=== PATIENT | female | born 1990 | race Caucasian/White ===

== ENCOUNTER 2018-04-21 15:34 | Emergency (ER) | payer MEDICAID, SELFPAY ==
[2018-04-21 15:36] VITALS: BP 147/92; PULSE 105; RESP 20; TEMP 36.4; O2SAT 97; BMI 46.5
[2018-04-21 15:48] VITALS: BP 146/92; PULSE 104; RESP 18; O2SAT 98
--- NOTE | 2018-04-21 15:53 | EKG12_ITS ---
Test Reason : SYNCOPE Blood Pressure : / mmHG Vent. Rate : 103 BPM Atrial Rate : 103 BPM P-R Int : 134 ms QRS Dur : 096 ms QT Int : 378 ms P-R-T Axes : 042 014 -12 degrees QTc Int : 495 ms Sinus tachycardia Nonspecific T wave abnormality Abnormal ECG Confirmed by EFFIE SEAMAN, PAVAN ([id number]), material expeditor GIOVANY HORAN ([id number]) on 04/24/2018 3:57:36 PM Referred By: JARRED Confirmed By:PAVAN CHOU MD
--- NOTE | 2018-04-21 15:55 | ED.VISSUMM ---
- ER Visit Summary Date of Service: 04/21/18 Chief Complaint: [] Syncope History of Present Illness: The patient is a 26 F with a history of recurrent syncope in the past. She states has been from low blood pressure. She had 3 syncopal episodes today. She does not completely got but she see stars for short period time. She has been feeling weak. She has had preeclampsia 3 times prior. She has been 11 times. She had a baby 3 weeks ago. She had preeclampsia with this gestational diabetes and polyhydramnios. She stated during the her blood pressures are 130s-140s. They did not put her on blood better pressure medications for this she was borderline. She sees an [facility] in [place] Dr. Kamryn jaeger. She feels intermittently weak. She has a history of chronic anemia secondary to Crohn's disease. She was at a Father's Day constitution party today and got weak and fell in the bathroom. She stated that she is just spotting now. Which is decreased significantly from her delivery Physical Examination: [] Vital signs reviewed General: Well-nourished well-developed Head: Normocephalic atraumatic Eyes: Pupils equal round and reactive to light extraocular movements intact ENT: TMs clear no hemotympanum no trauma Neck: Nontender full range of motion Cardiovascular: Regular rate rhythm no murmurs normal S1-S2 Respiratory: No distress clear to auscultation bilaterally chest nontender Abdomen: Soft nontender nondistended normal bowel sounds no masses Back: Nontender no CVA tenderness Extremities: Nontender active range of motion ?4 extremities no trauma Skin: Normal color no trauma Neuro alert oriented cranial nerves II through XII intact normal strength sensation reflexes Test Results: [] Emergency Department Course and Treatment: [] Even IV fluids and Toradol. EKG lab work obtained EKG shows sinus at 103 T-wave inversion inferior lead III. CBC normal except hemoglobin 11.1. Chemistries normal except BUN 5. Uric acid normal. Liver function tests normal except alk phos 120 which is elevated normally after . Urinalysis shows no evidence of abnormality. No protein in the urine. Patient given IV fluids Toradol Phenergan and Nubain and will be discharged home. I do not think she has preeclampsia. Blood pressures have been 130s-140s. Patient stated she has been around this area throughout her . She has a follow-up with her [facility] and will call them as an outpatient. I do not feel the patient has an acute cause of the syncopal episodes. Treatment Plan: [] Disposition: [] Impression: [] Syncope recurrent Headache recurrent This note was generated with [employer] dictation software. It may contain incorrect words, spelling, and punctuation that were not noted in review of the chart prior to signing ED Disposition - Plan for ED Patient: Chief Complaint: Syncope Referrals: Jimmie Jason MD [NON-STAFF] -
[2018-04-21 16:14] LABS: Mucous, Urine 0 SEEN /hpf (<or=2+); Red Blood Cells-Urine 0 SEEN /hpf (0-5)
[2018-04-21 16:24] LABS: Color, Urine Yellow (Yellow); Glucose, Dipstick Normal (Normal); Ketone-Dipstick Negative (Negative); Leukocyte Esterase-Dipstick 100 /ul (Negative); Nitrite-Dipstick Negative (Negative); Occult Blood-Urine 50 /ul (Negative); Protein-Dipstick Negative (Negative); Specific Gravity, Urine 1.015 (1.002-1.030); Urine Bilirubin Dipstick Negative (Negative); Urine Clarity Clear (Clear); Urine Urobilinogen Normal (Normal)
[2018-04-21 16:34] VITALS: PULSE 105; RESP 18
[2018-04-21 16:34] LABS: Bacteria 1+ /hpf (None Seen); Squamous Epithelial Cells - UA 0-5 SEEN /hpf (5-10); White Blood Cells 0-5 SEEN /hpf (0-5)
[2018-04-21] MEDS: Ketorolac 30 MG/ML Syringe IV (16:49)
[2018-04-21] MEDS: proMETHazine 25 MG/ML Syringe 6.25 MG IV (16:49)
[2018-04-21] MEDS: 0.9% Normal Saline 1,000 ML 1000 ML IV (16:49)
[2018-04-21 17:00] VITALS: BP 139/90; PULSE 108; RESP 19; O2SAT 98
[2018-04-21] MEDS: Ondansetron 4 MG/2 ML Vial IV (17:40)
--- NOTE | 2018-04-21 17:44 | ED.RN ---
PT REQUESTING PAIN MEDICATION OR BENADRYL. DR. STERN AWARE.
[2018-04-21 17:55] LABS: Hematocrit 36.1 % (37-47); Hemoglobin 11.1 g/dl (12.0-15.0); Mean Corp Hgb Conc 30.7 g/gl (32-36); Mean Corpuscular Hgb 25.2 pg (27.0-32.0); Mean Corpuscular Volume 81.9 fL (81-99); Mean Platelet Vol. 9.8 fl (6.2-12.0); Platelet Count 379 K/mm3 (150-450); RBC Distribution Width CV 14.4 % (11.6-14.6); RBC Distribution Width SD 43.5 fl (35.1-43.9); Red Blood Count 4.41 M/mm3 (4.2-5.4); White Blood Count 9.4 K/mm3 (4.4-11.0)
[2018-04-21 18:00] VITALS: BP 140/73; PULSE 87; RESP 20; O2SAT 97
[2018-04-21 18:01] LABS: Scan Indicated on CBC? Y/N NO
[2018-04-21 18:08] LABS: ALB/GLOB Ratio 0.8 RATIO (0.9-2.4); AST(SGOT) 31 U/L (15-37); Alanine Aminotransfer ALT/SGPT 30 U/L (13-56); Albumin, Serum 3.4 g/dL (3.2-5.0); Alkaline Phosphatase 120 U/L (45-117); Anion Gap 8 (5-15); BUN 5 mg/dL (7-18); BUN/Creat Ratio 5.5 RATIO (10-20); Calcium,Total 8.9 mg/dL (8.5-10.1); Chloride 107 mmol/L (98-107); EST Glomerular Filtration Rate 79 mL/min (>60); Est Glom Filt Rate - Afr Amer 95 mL/min (>60); Estimated Creatinine Clearance 80.36 ml/min; Globulin 4.5 g/dL (2.2-4.2); Glucose 87 mg/dL (74-106); Potassium 3.9 mmol/L (3.5-5.1); Protein, Total 7.9 g/dL (6.4-8.2); Sodium Level 139 mmol/L (136-145); Uric Acid 5.4 mg/dL (2.6-6.0)
--- NOTE | 2018-04-21 18:22 | ED.DEP ---
ED Disposition - Plan for ED Patient: Disposition: Home or Assisted Living Chief Complaint: Syncope Instructions: ED Syncope Vasovagal Referrals: Jimmie Jason MD [NON-STAFF] -
[2018-04-21] MEDS: Nalbuphine 10 MG/ML Ampul 5 MG IV (18:33)
--- NOTE | 2018-04-21 18:37 | ED.RN ---
REVIEWED D/C INSTRUCTIONS, FOLLOW UP CARE, AND S/S THAT WOULD WARRANT A RETURN TO THE ED WITH PT. PT VERBALIZED AN UNDERSTANDING AND DENIES FURTHER QUESTIONS FOR THIS RN. PT SKIN P/W/D, RESP EVEN AND UNLABORED, PT A&O X 3, NO DISTRESS NOTED.
[2018-04-21 18:38] VITALS: BP 140/73; PULSE 95; RESP 20; O2SAT 97
== END 2018-04-21 18:39 | disposition home or self-care (01) ==
PROVIDERS: Emergency Provider Emergency Medicine
DX: O90.89 Other complications of the puerperium, not elsewhere classified (principal); R55 Syncope and collapse; R51 Headache; O99.63 Diseases of the digestive system complicating the puerperium; K50.90 Crohn's disease, unspecified, without complications; O99.215 Obesity complicating the puerperium; Z79.899 Other long term (current) drug therapy; Z86.2 Personal history of diseases of the blood and blood-forming organs and certain disorders involving the immune mechanism; Z86.19 Personal history of other infectious and parasitic diseases
CPT/HCPCS: 36415; 80053; 81001; 84550; 85027; 93005; 96361; 96374; 96375; 99285; J7030; A4216; J2405

== ENCOUNTER 2018-05-18 12:50 | Emergency (ER) | payer MEDICAID, SELFPAY ==
[2018-05-18 12:51] VITALS: BP 155/104; PULSE 108; RESP 16; TEMP 36.2; O2SAT 100; BMI 45.8
[2018-05-18] MEDS: 0.9% Normal Saline 1,000 ML 1000 ML IV (14:08)
[2018-05-18] MEDS: Morphine 4 MG/ML Syringe IV (14:08)
[2018-05-18] MEDS: proMETHazine 25 MG/ML Syringe 6.25 MG IV (14:09)
[2018-05-18 14:14] LABS: Absolute Lymphocyte Count 1.56 X10^3/ul (0.83-4.51); Absolute Neutrophil Count 7.5 X10^3/uL (2.0-7.7); Basophil# 0.02 X10^3/uL; Basophil% 0.2 % (0-1); Eosinophil# 0.03 X10^3/uL; Eosinophils% 0.3 % (0-5); Hematocrit 38.5 % (37-47); Hemoglobin 12.2 g/dl (12.0-15.0); Lymphocyte # 1.56 X10^3/ul (4.0); Lymphocyte % 16.4 % (19-41); Mean Corp Hgb Conc 31.7 g/gl (32-36); Mean Corpuscular Hgb 25.4 pg (27.0-32.0); Mean Platelet Vol. 9.8 fl (6.2-12.0); Monocyte# 0.39 X10^3/uL; Monocyte% 4.1 % (0-10); Neutrophil # 7.47 X10^3/uL (2.7-7.7); Neutrophil % 78.7 % (47-70); Platelet Count 372 K/mm3 (150-450); RBC Distribution Width CV 15.4 % (11.6-14.6); RBC Distribution Width SD 44.8 fl (35.1-43.9); Red Blood Count 4.81 M/mm3 (4.2-5.4); White Blood Count 9.5 K/mm3 (4.4-11.0)
[2018-05-18 14:15] LABS: POSITIVE COUNT NO; POSITIVE DIFFERENTIAL NO; POSITIVE MORPHOLOGY NO
[2018-05-18] MEDS: Ketorolac 30 MG/ML Syringe IV (14:48)
[2018-05-18] MEDS: LORazepam 2 MG/ML Syringe 1 MG IV (14:48)
[2018-05-18 15:00] VITALS: RESP 16
[2018-05-18 15:39] LABS: Anion Gap 10 (5-15); BUN 5 mg/dL (7-18); BUN/Creat Ratio 6.6 RATIO (10-20); Calcium,Total 8.7 mg/dL (8.5-10.1); Chloride 108 mmol/L (98-107); Creatinine, Serum 0.76 mg/dL (0.55-1.02); EST Glomerular Filtration Rate 96 mL/min (>60); Est Glom Filt Rate - Afr Amer 116 mL/min (>60); Estimated Creatinine Clearance 94.32 ml/min; Glucose 100 mg/dL (74-106); Potassium 3.7 mmol/L (3.5-5.1); Sodium Level 143 mmol/L (136-145)
[2018-05-18 15:47] LABS: Pregnancy, Serum, hCG Quali. NEGATIVE Negative (0-9 Nonpreg)
--- NOTE | 2018-05-18 15:47 | ED.VISSUMM ---
- ER Visit Summary Date of Service: 05/18/18 Chief Complaint: Diarrhea History of Present Illness: The patient is a 27 F with diarrhea for 2 days. The diarrhea has been watery and nonbloody. She has also had nausea and vomiting. She has a history of Crohn's disease and also multiple episodes of C. difficile diarrhea. She has no recent antibiotics. She denies fevers. Denies any significant abdominal pain, but does have some cramping. Physical Examination: Blood pressure 155/104. Heart rate 108. Otherwise vitals unremarkable. Afebrile. Skin appears normal without jaundice or pallor. Heart is tachycardic but regular. Lungs are clear. Abdomen soft, nontender, nondistended. Alert and oriented. No acute distress. Test Results: See below Emergency Department Course and Treatment: Patient has Crohn's, C. difficile, and presents with recurrent diarrhea. I ordered IV fluids, pain medicine, and nausea medicine. I also ordered labs, urinalysis, and C. difficile testing. Nursing was able to place an IV, but they could not draw a blood sample. They were unsuccessful after multiple attempts. The patient declined any further needle sticks. I continue with fluid hydration and medications. She also received Toradol. Stool sample was sent to the lab. They had trouble running the sample and requested a second sample. The patient was unable to provide another sample. She would like to be treated for C. difficile as an outpatient and declined any further testing. She received a dose of Flagyl here. She has follow-up with her GI doctor and ID doctor on May 27. I advised her that she has not been completely evaluated for abdominal pain, diarrhea, Crohn's complications, or C. difficile. If she has any new or worsening symptoms, she should return for an evaluation. Treatment Plan: As above Disposition: Discharge Impression: 1. Diarrheal illness This note was generated with codebender dictation software. It may contain incorrect words, spelling, and punctuation that were not noted in review of the chart prior to signing ED Disposition - Plan for ED Patient: Chief Complaint: General Illness Referrals: Care Physician,No Primary [Primary Care Provider] -
--- NOTE | 2018-05-18 15:52 | ED.DCSUM_ITS ---
- ER Visit Summary Date of Service: 05/18/18 Chief Complaint: Diarrhea History of Present Illness: The patient is a 27 F with diarrhea for 2 days. The diarrhea has been watery and nonbloody. She has also had nausea and vomiting. She has a history of Crohn's disease and also multiple episodes of C. difficile diarrhea. She has no recent antibiotics. She denies fevers. Denies any significant abdominal pain, but does have some cramping. Physical Examination: Blood pressure 155/104. Heart rate 108. Otherwise vitals unremarkable. Afebrile. Skin appears normal without jaundice or pallor. Heart is tachycardic but regular. Lungs are clear. Abdomen soft, nontender, nondistended. Alert and oriented. No acute distress. Test Results: See below Emergency Department Course and Treatment: Patient has Crohn's, C. difficile, and presents with recurrent diarrhea. I ordered IV fluids, pain medicine, and nausea medicine. I also ordered labs, urinalysis, and C. difficile testing. Nursing was able to place an IV, but they could not draw a blood sample. They were unsuccessful after multiple attempts. The patient declined any further needle sticks. I continue with fluid hydration and medications. She also received Toradol. Stool sample was sent to the lab. They had trouble running the sample and requested a second sample. The patient was unable to provide another sample. She would like to be treated for C. difficile as an outpatient and declined any further testing. She received a dose of Flagyl here. She has follow-up with her GI doctor and ID doctor on May 27. I advised her that she has not been completely evaluated for abdominal pain, diarrhea, Crohn' s complications, or C. difficile. If she has any new or worsening symptoms, she should return for an evaluation. Treatment Plan: As above Disposition: Discharge Impression: 1. Diarrheal illness This note was generated with [employer] dictation software. It may contain incorrect words, spelling, and punctuation that were not noted in review of the chart prior to signing ED Disposition - Plan for ED Patient: Chief Complaint: General Illness Referrals: Care Physician,No Primary [Primary Care Provider] -
--- NOTE | 2018-05-18 15:52 | ED.DEP ---
ED Disposition - Plan for ED Patient: Chief Complaint: General Illness Instructions: Clostridium difficile Infection Prescriptions: Metronidazole [Flagyl] 500 mg PO Q8H #30 tab Additional Instructions: follow up with your GI and ID doctors as scheduled
[2018-05-18] MEDS: predniSONE 20 MG Tablet 40 MG PO (15:57)
[2018-05-18] MEDS: HYDROcodone Bitartrate/Apap 5/325 Tablet PO (15:57)
[2018-05-18] MEDS: metroNIDAZOLE 500 MG Tablet PO (16:09)
[2018-05-18 16:10] VITALS: BP 134/78; PULSE 82; RESP 18; O2SAT 97
--- NOTE | 2018-05-18 17:38 | ED.RN ---
Called pt with C-diff results which were negative. She was advised to not take the Flagyl as ordered. This was verified with Dr coronado.
== END 2018-05-18 16:18 | disposition home or self-care (01) ==
PROVIDERS: Emergency Provider Emergency Medicine
DX: R19.7 Diarrhea, unspecified (principal); K50.90 Crohn's disease, unspecified, without complications; R11.2 Nausea with vomiting, unspecified; R00.0 Tachycardia, unspecified; Z79.899 Other long term (current) drug therapy; Z86.19 Personal history of other infectious and parasitic diseases
CPT/HCPCS: 80048; 81001; 84703; 85025; 87493; 96361; 96374; 96375; 99285; J7030; A4216

== ENCOUNTER 2022-08-18 16:18 | Emergency (ER) | payer SELFPAY ==
[2022-08-18 16:20] VITALS: BP 202/184; PULSE 128; RESP 22; TEMP 37.2; O2SAT 96; BMI 46.3
[2022-08-18 16:21] VITALS: BP 134/78; PULSE 88; RESP 16; TEMP 37.1; O2SAT 99
--- NOTE | 2022-08-18 16:41 | CT_ITS ---
STUDY: CT Abdomen And Pelvis W/ Contrast Injection 08/18/2022 8:44 PM REASON FOR EXAM: Female, 31 years old. ABDOMINAL PAIN Technologist Notes Left sided pain, history of cholecystectomy, chrons disease. crohns TECHNIQUE: Transaxial images were obtained with oral contrast, and with Oral and amp; IV Gastrografin and amp; 100mL Isovue-300 intravenous contrast. Individualized dose optimization techniques were used for this CT. COMPARISON: None. FINDINGS: The visualized lung bases are unremarkable. There is a small pericardial effusion. Unremarkable liver. There is non-visualization of the gallbladder, which may be secondary to either contraction or a prior cholecystectomy. Unremarkable spleen. Unremarkable pancreas. Unremarkable bilateral adrenal glands. No acute findings of the right kidney. No acute findings of the left kidney. Unremarkable visualized stomach. Unremarkable small intestine. Unremarkable colon. The appendix is visualized and appears unremarkable. There are no acute findings of the abdominal aorta. Unremarkable inferior vena cava. Subcentimeter mesenteric lymph nodes. Unremarkable urinary bladder. Unremarkable abdominal wall. Unremarkable osseous structures. CT/Abdomen/Pelvis WITH Contrast IMPRESSION: (NOT LISTED IN ORDER OF SIGNIFICANCE) There is a small pericardial effusion. Other findings as above. Electronically Signed: Grover Ramos MD at 20:46 EDT ,
--- NOTE | 2022-08-18 16:43 | ED.VIS.GI ---
HPI HPI - GI History of Present Illness Chief Complaint: GI Bleed Informant: patient Narrative Narrative: History of Crohn's disease diagnosed 6 years old. Previously on Cimzia. States initially diagnosed in [place]. She came to [place] was followed at [facility]. She states prior to moving back in [place] she was reportedly cleared from Crohn's and told she had IBS. She had a previous cholecystectomy and partial small bowel obstruction of the ileum. Yesterday small blood with wiping gauze hemorrhoids this morning noted more blood however no bowel movement since. This morning also vomited states chunks that look like burnt food. Nonbloody. She did not cough up any blood. History of multiple allergies. States Zofran does not work. Phenergan or Reglan with Benadryl works. Tolerated morphine. She currently moved back from [place] a week ago. Blood pressure elevated states it would be elevated with pain. No headaches. No chest pains. No urinary symptoms. Reports does have pain in her lower back. No radicular symptoms. Prior similar symptoms: Yes PFSH PFSH Medical History Crohn's disease Home Medications dronabinol 5 mg capsule (Marinol) 5 mg PO BID 04/21/18 [History Last Taken Unknown] haloperidol 5 mg tablet 5 mg PO PRN PRN Anxiety 04/21/18 [History Last Taken Unknown] sertraline 100 mg tablet 150 mg PO DAILY 04/21/18 [History Last Taken Unknown] metronidazole 500 mg tablet 500 mg PO Q8H #30 tabs 05/18/18 [Rx Last Taken Unknown] dicyclomine 20 mg tablet 20 mg PO TID abdominal pain #30 tabs 08/18/22 [Rx Last Taken Unknown] promethazine 25 mg rectal suppository (Promethegan) 25 mg RECTAL Q6H PRN PRN Nausea ##10 08/18/22 [Rx Last Taken Unknown] promethazine 25 mg tablet 25 mg PO Q6H PRN nausea and vomiting #10 tabs 08/18/22 [Rx Last Taken Unknown] Allergy/AdvReac Type Severity Reaction Status Date / Time benzocaine [From Cetacaine] Allergy Anaphylaxis Verified 08/18/22 16:20 butamben [From Cetacaine] Allergy Anaphylaxis Verified 08/18/22 16:20 methylprednisolone sodium Allergy Anaphylaxis Verified 08/18/22 16:20 succinate [From Solu-Medrol] tetracaine [From Cetacaine] Allergy Anaphylaxis Verified 08/18/22 16:20 midazolam HCl [From Versed] AdvReac Other Verified 08/18/22 16:20 Social History Smoking Status: Former smoker ROS ROS ED Constitutional Constitutional ED: Denies chills, fever(s) or sweats Eyes Eyes: Denies change in vision ENT ENT ED: Denies dysphagia or sore throat Cardiovascular Cardiovascular: Denies chest pain, leg edema, palpitations or racing heartbeat Respiratory/Chest Respiratory/Chest: Denies cough, dyspnea or dyspnea on exertion Gastrointestinal Gastrointestinal: Reports abdominal pain, nausea and vomiting; Denies diarrhea Genitourinary Genitourinary ED: Denies dysuria, hematuria or urinary frequency Musculoskeletal Musculoskeletal: Reports back pain; Denies extremity pain or neck pain Integumentary Denies rash or wounds Neurologic Neurologic: Denies headache(s), paresthesias or weakness EXAM Physical Exam Const Vital Signs: 08/18/22 16:20 08/18/22 16:21 08/18/22 18:19 Temperature 99 F 98.7 F Temperature Source Temporal Temporal Pulse Rate 128 H 88 78 Respiratory Rate 22 H 16 16 Blood Pressure 202/184 H 134/78 H 134/78 H Blood Pressure Mean 190 96 96 Pulse Ox 96 99 98 Oxygen Delivery Method Room Air Room Air Room Air 08/18/22 21:03 08/18/22 21:28 Temperature 101 F H Temperature Source Oral Pulse Rate 78 Respiratory Rate 16 Blood Pressure 128/76 H Blood Pressure Mean 93 Pulse Ox 99 Oxygen Delivery Method Room Air Positive well nourished and well developed General Appearance ED: well developed and NAD HEENT Reports moist mucous membranes normocephalic and atraumatic Eyes PERRL, EOMs intact bilaterally and conjunctivae normal General Eye ED: Yes normal appearance of both eyes Neck no lymphadenopathy and supple General: Negative for tenderness Chest Wall Chest: Negative for tenderness Resp normal respiratory effort and normal air movement Effort and Inspection: symmetric chest movement; Negative for respiratory distress Cardio regular rhythm and no murmurs Rate: tachycardic Peripheral Pulses: pulses 2+ throughout GI normal to inspection, nondistended, normoactive bowel sounds GI Narrative: Mild generalized tenderness no guarding or rebound. Palpation: Negative for guarding or rebound tenderness present Back/Spine no CVA tenderness and no thoracic nor lumbar tenderness Extremity normal to inspection General Extremety ED: Negative for edema or tenderness General Extremity: Negative for edema Neuro oriented x3 and no sensory deficits noted Sensorium / Orientation: awake and alert Skin no rashes or lesions noted and no wounds MDM MDM MDM Narrative Medical decision making narrative: IsPatient elevated blood pressure tachycardic on arrival. She had a nonsurgical abdomen reported increasing pain with Crohn's history. Work-up for which she agreed. CT scan with oral and IV contrast was ordered abdominal labs all normal hemoglobin 12.6. Urine negative. Treated for pain and nausea symptoms while in the ED. Her blood pressure heart rate improved with treatment. CT scan results showed no acute process of her abdomen there is a small pericardial effusion. She has no chest complaints. Prior to discharge temp went up to 101 however urine negative. No cough symptoms. Patient discharged with GI follow-up as an outpatient prescription for Bentyl and Phenergan was written that she is tolerated this in the past. Return precautions. All questions were answered. Lab Data Labs: Laboratory Results - last 24 hr 08/18/22 08/18/22 08/18/22 16:45 17:40 17:40 WBC 7.3 RBC 5.27 Hgb 12.6 Hct 42.3 MCV 80.3 L MCH 23.9 L MCHC 29.8 L RDW Std Deviation 46.2 H RDW Coeff of Silke 15.9 H Plt Count 225 MPV 10.9 Immature Gran % (Auto) 0.600 Neut % (Auto) 81.9 H Lymph % (Auto) 10.0 L [place] % (Auto) 7.2 Eos % (Auto) 0.0 Baso % (Auto) 0.3 Absolute Neuts (auto) 6.0 Absolute Lymphs (auto) 0.73 L Nucleated RBC % 0 Sodium 137 Potassium 4.3 Chloride 106 Carbon Dioxide 24.0 Anion Gap 7 BUN 8 Creatinine 0.97 Estim Creat Clear Calc 71.23 Est GFR (MDRD) Af Amer 85 Est GFR (MDRD) Non-Af 70 BUN/Creatinine Ratio 8.2 L Glucose 108 H Calcium 9.2 Total Bilirubin 0.90 AST 12 L ALT 15 Alkaline Phosphatase 81 Total Protein 8.2 Albumin 3.4 Globulin 4.8 H Albumin/Globulin Ratio 0.7 L Lipase 92 Urine Color Yellow Urine Clarity Clear Urine pH 7.0 Ur Specific [place] 1.010 Urine Protein Negative Urine Glucose (UA) Normal Urine Ketones Negative Urine Occult Blood Negative Urine Nitrite Negative Urine Bilirubin Negative Urine Urobilinogen Normal Ur Leukocyte Esterase Negative Urine RBC 0-5 SEEN Urine WBC 0-5 SEEN Ur Squamous Epith Cells 0-5 SEEN Urine Bacteria RARE Urine Mucus 0 SEEN Urine Test Negative Radiography Diagnostic Testing: Clinical Impression(s) from Imaging Studies Abdomen/Pelvis CT 08/18/22 16:41 IMPRESSION: (NOT LISTED IN ORDER OF SIGNIFICANCE) There is a small pericardial effusion. Other findings as above. Electronically Signed: Grover Ramos MD at 20:46 EDT Reading Location ID and State: [facility] / [place] , Service support , Discharge Plan Triage Chief Complaint: GI Bleed ED Provider: Juancho Fair Dx/Rx/DC Orders Clinical Impression: Abdominal pain, Hx of Crohn's disease, History of IBS, Rectal bleeding, Pericardial effusion Instructions: Abdominal Pain, ED Irritable Bowel Syndrome, ED Lower GI Bleeding (Stable) Prescriptions: New promethazine [Promethegan] 25 mg suppository 25 mg RECTAL Q6H PRN PRN (Reason: Nausea) Qty: 10 0RF promethazine 25 mg tablet 25 mg PO Q6H PRN (Reason: nausea and vomiting) Qty: 10 0RF dicyclomine 20 mg tablet 20 mg PO TID Qty: 30 0RF No Action haloperidol 5 MG tablet 5 mg PO PRN PRN (Reason: Anxiety) dronabinol [Marinol] 5 MG capsule 5 mg PO BID sertraline 100 MG tablet 150 mg PO DAILY metronidazole 500 MG tablet 500 mg PO Q8H Qty: 30 0RF Primary Care Provider: Care Physician,No Primary Referrals: Juan Alberto Ho DO [Med Staff - Active Staff] - 1-2 Weeks Care Physician,No Primary [Primary Care Provider] - Activity Restrictions/Additional Instructions: CT scan negative. Labs are all stable. Hemoglobin 12.6. Monitor symptoms. Follow-up with GI as an outpatient. Return if any worsening symptoms. Disposition Disposition: Home, Self Care Discharge Date/Time: 08/18/22 21:11
[2022-08-18 16:52] LABS: Mucous, Urine 0 SEEN /hpf (<or=2+)
[2022-08-18 16:57] LABS: Color, Urine Yellow (Yellow); Glucose, Dipstick Normal (Normal); Ketone-Dipstick Negative (Negative); Leukocyte Esterase-Dipstick Negative /ul (Negative); Nitrite-Dipstick Negative (Negative); Occult Blood-Urine Negative /ul (Negative); Protein-Dipstick Negative (Negative); Urine Bilirubin Dipstick Negative (Negative); Urine Clarity Clear (Clear); Urine Urobilinogen Normal (Normal)
[2022-08-18 17:02] LABS: Internal QC Validated? YES +Cl - CLEAR BKGD; Pregnancy, Urine Negative Negative
[2022-08-18] MEDS: DiphenhydrAMINE 50 MG/ML Syringe 25 MG IV (17:03)
[2022-08-18] MEDS: Metoclopramide 10 MG/2 ML Vial 5 MG IV (17:04)
[2022-08-18] MEDS: Morphine 4 MG/ML Syringe IV ×2 (17:05→18:35)
[2022-08-18 17:11] LABS: Red Blood Cells-Urine 0-5 SEEN /hpf (0-5); White Blood Cells 0-5 SEEN /hpf (0-5)
[2022-08-18 17:12] LABS: Bacteria RARE /hpf (None Seen); Squamous Epithelial Cells - UA 0-5 SEEN /hpf (5-10)
[2022-08-18] MEDS: 0.9% Normal Saline 1,000 ML 1000 ML IV (17:15)
[2022-08-18 17:52] LABS: Absolute Lymphocyte Count 0.73 X10^3/uL (0.83-4.51); Basophil# 0.02 X10^3/uL; Basophil% 0.3 % (0-1); Hematocrit 42.3 % (37-47); Hemoglobin 12.6 g/dL (12.0-15.0); Lymphocyte # 0.73 X10^3/ul (0.83-4.51); Mean Corp Hgb Conc 29.8 g/dL (32-36); Mean Corpuscular Hgb 23.9 pg (27.0-32.0); Mean Corpuscular Volume 80.3 fL (81-99); Mean Platelet Vol. 10.9 fl (6.2-12.0); Monocyte# 0.52 X10^3/uL; Monocyte% 7.2 % (0-10); NRBC Flagged by Analyzer 0 % (0-5); Neutrophil # 5.96 X10^3/uL (2.7-7.7); Neutrophil % 81.9 % (47-70); Platelet Count 225 K/mm3 (150-450); RBC Distribution Width CV 15.9 % (11.6-14.6); RBC Distribution Width SD 46.2 fl (35.1-43.9); Red Blood Count 5.27 M/mm3 (4.2-5.4); White Blood Count 7.3 K/mm3 (4.4-11.0)
[2022-08-18 18:15] LABS: ALB/GLOB Ratio 0.7 RATIO (0.9-2.4); AST(SGOT) 12 U/L (15-37); Alanine Aminotransfer ALT/SGPT 15 U/L (13-56); Albumin, Serum 3.4 g/dL (3.2-5.0); Alkaline Phosphatase 81 U/L (45-117); Anion Gap 7 (5-15); BUN 8 mg/dL (7-18); BUN/Creat Ratio 8.2 RATIO (10-20); Calcium,Total 9.2 mg/dL (8.5-10.1); Chloride 106 mmol/L (98-107); Creatinine, Serum 0.97 mg/dL (0.55-1.02); EST Glomerular Filtration Rate 70 mL/min (>60); Est Glom Filt Rate - Afr Amer 85 mL/min (>60); Estimated Creatinine Clearance 71.23 ml/min; Globulin 4.8 g/dL (2.2-4.2); Glucose 108 mg/dL (74-106); Lipase 92 U/L (73-393); Potassium 4.3 mmol/L (3.5-5.1); Protein, Total 8.2 g/dL (6.4-8.2); Sodium Level 137 mmol/L (136-145)
[2022-08-18 18:19] VITALS: BP 134/78; PULSE 78; RESP 16; O2SAT 98
[2022-08-18] MEDS: Ondansetron 4 MG/2 ML Vial IV (18:34)
[2022-08-18 21:03] VITALS: BP 128/76; PULSE 78; RESP 16; O2SAT 99
[2022-08-18 21:28] VITALS: TEMP 38.3
== END 2022-08-18 21:11 | disposition home or self-care (01) ==
PROVIDERS: Emergency Provider Emergency Medicine; Visit Provider Emergency Medicine
DX: K58.9 Irritable bowel syndrome, unspecified (principal); K92.2 Gastrointestinal hemorrhage, unspecified; R03.0 Elevated blood-pressure reading, without diagnosis of hypertension; R10.9 Unspecified abdominal pain; I31.39 Other pericardial effusion (noninflammatory); Z87.891 Personal history of nicotine dependence
CPT/HCPCS: 74177; 80053; 81001; 81025; 83690; 85025; 96361; 96374; 96375; 96376; 99282; J7030; Q9967; A4216; J2405

== ENCOUNTER 2022-10-26 10:00 | Emergency (ER) | payer OTHER, SELFPAY ==
[2022-10-26 10:01] VITALS: BP 151/84; PULSE 85; RESP 16; TEMP 36; O2SAT 100; BMI 48.0
--- NOTE | 2022-10-26 11:21 | EDS_ITS ---
HPI History of Present Illness Chief Complaint: General Illness Informant: patient Onset/Context/Timing Onset: Yesterday Narrative Narrative: Patient presents with nausea, vomiting, diarrhea that started yesterday. She states she has Crohn's, she normally has maybe 2 stools a day, they are loose but not liquid diarrhea like this, she has been going 8-10 times per day or so. Vomiting, nonbilious nonbloody. Subjective fevers but she has not checked her temperature. She is also coughing bringing up small amounts of phlegm no blood. No dyspnea. No chest pain. She has some mild lower abdominal discomfort but states that the quality of the pain is solid, like I am constipated, but I am not. She agrees when I suggest it does not sound like she is having a Crohn's flareup. She can think of no suspicious food ingestions. No known sick contacts but she works at a [employer] and there are a lot of people around her and at least 1 person is out with some type of illness. She is unvaccinated against COVID and influenza. [facility] Medical History Crohn's disease Home Medications dronabinol 5 mg capsule (Marinol) 5 mg PO BID 04/21/18 [History Last Taken Unknown] haloperidol 5 mg tablet 5 mg PO PRN PRN Anxiety 04/21/18 [History Last Taken Unknown] sertraline 100 mg tablet 150 mg PO DAILY 04/21/18 [History Last Taken Unknown] metronidazole 500 mg tablet 500 mg PO Q8H #30 tabs 05/18/18 [Rx Last Taken Unknown] dicyclomine 20 mg tablet 20 mg PO TID abdominal pain #30 tabs 08/18/22 [Rx Last Taken Unknown] promethazine 25 mg rectal suppository (Promethegan) 25 mg RECTAL Q6H PRN PRN Nausea ##10 08/18/22 [Rx Last Taken Unknown] promethazine 25 mg tablet 25 mg PO Q6H PRN nausea and vomiting #10 tabs 08/18/22 [Rx Last Taken Unknown] promethazine 25 mg tablet 25 mg PO Q6H PRN PRN Nausea #20 TABLETS 10/26/22 [Rx Last Taken Unknown] Allergy/AdvReac Type Severity Reaction Status Date / Time benzocaine [From Cetacaine] Allergy Anaphylaxis Verified 10/26/22 10:00 butamben [From Cetacaine] Allergy Anaphylaxis Verified 10/26/22 10:00 methylprednisolone sodium Allergy Anaphylaxis Verified 10/26/22 10:00 succinate [From Solu-Medrol] tetracaine [From Cetacaine] Allergy Anaphylaxis Verified 10/26/22 10:00 midazolam HCl [From Versed] AdvReac Other Verified 10/26/22 10:00 Social History Smoking Status: Current every day smoker tobacco type: cigarettes ROS ROS ED Constitutional Constitutional ED: Reports fever(s) and subjective Eyes Eyes: Denies change in vision or diplopia ENT ENT ED: Denies rhinorrhea or sore throat Cardiovascular Cardiovascular: Denies chest pain or palpitations Respiratory/Chest Respiratory/Chest: Reports cough and sputum; Denies dyspnea Gastrointestinal Gastrointestinal: Reports abdominal pain, diarrhea, nausea and vomiting; Denies hematemesis, hematochezia, hemorrhoids or melena Genitourinary Genitourinary ED: Denies dysuria or hematuria Musculoskeletal Musculoskeletal: Denies back pain or neck pain Integumentary Denies abscess or rash Neurologic Neurologic: Denies headache(s), paresthesias or weakness Psychiatric Psychiatric: Denies anxiety or suicidal thoughts EXAM Physical Exam Const Vital Signs: 10/26/22 10:01 10/26/22 10:51 10/26/22 12:04 Temperature 96.8 F L Temperature Source Temporal Pulse Rate 85 Respiratory Rate 16 16 Respiratory Effort Normal Non-Labored Blood Pressure 151/84 H Blood Pressure Mean 106 Pulse Ox 100 Oxygen Delivery Method Room Air 10/26/22 12:33 Temperature Temperature Source Pulse Rate Respiratory Rate 16 Respiratory Effort Blood Pressure 114/85 H Blood Pressure Mean 94 Pulse Ox Oxygen Delivery Method Positive well nourished, well developed and obese Constitutional Narrative: Very well-appearing, ambulatory without difficulty, conversive in full sentences General Appearance ED: well developed and NAD Nutritional Appearance: obese HEENT Reports moist mucous membranes normocephalic and atraumatic Eyes PERRL and EOMs intact bilaterally Neck full ROM, no lymphadenopathy and supple Resp normal respiratory effort and clear to auscultation bilaterally Cardio regular rate, regular rhythm and no murmurs Rate: Negative for tachycardic GI non-tender and non-distended GI Narrative: Exam limited by morbid obesity, but very benign abdomen without any tenderness. Auscultation: normoactive bowel sounds Palpation: soft Back/Spine no CVA tenderness General Back: other FROM Extremity normal to inspection General Extremety ED: Negative for edema, pulses abnormal or tenderness General Extremity: Negative for edema or pulses abnormal Neuro oriented x3, CN's II-XII intact bilaterally and no sensory deficits noted Sensorium / Orientation: awake and alert Motor Exam: strength 5/5 throughout Skin no rashes or lesions noted and no wounds MDM MDM MDM Narrative Medical decision making narrative: Patient was tested for COVID and influenza and both are negative. Basic labs are normal she does not have a leukocytosis or leftward shift/bandemia, and her abdomen is very benign and the discomfort she is complaining of states feels like constipation, so I ordered a dicyclomine and nursing states the patient's cough added and refused it. She was given an IV with fluids and Zofran but she said it did not help her nausea even though she was not vomiting anymore. She was then given Reglan and able to keep some fluids down. She is asking for something different for pain but I do not think she needs any narcotics and she does not have any tenderness in her abdomen or symptoms of a Crohn's flare. For these reasons I do not think any advanced imaging of her abdomen is indicated at this time. I suspect she has a viral illness causing her vomiting and diarrhea. If it turns bloody I would recommend returning for testing and reevaluation, but for now I would treat her with supportive care, prescriptions offered. Turns out the patient refused the Reglan because she gets akathisia with it. This hospital has outlawed IV promethazine, patient states she is immune to Zofran and Bentyl and she understands why she does not need any narcotic pain medications here, and is requesting a dose of IM promethazine, she agrees that her nausea is somewhat better she has not vomited while in the emergency department, she really wanted make sure potassium is okay which it is, as are the rest of her electrolytes, supportive care advised along with a prescription for promethazine she is comfortable with that plan. Lab Data Attestation: I reviewed the patient's lab results. Labs: Laboratory Results - last 24 hr 10/26/22 10/26/22 10/26/22 12:19 12:19 12:19 WBC 7.8 RBC 4.56 Hgb 11.8 L Hct 37.4 MCV 82.0 MCH 25.9 L MCHC 31.6 L RDW Std Deviation 45.6 H RDW Coeff of Silke 15.3 H Plt Count 268 MPV 9.7 Immature Gran % (Auto) 0.300 Neut % (Auto) 60.8 Lymph % (Auto) 33.4 [place] % (Auto) 4.9 Eos % (Auto) 0.1 Baso % (Auto) 0.5 Absolute Neuts (auto) 4.8 Absolute Lymphs (auto) 2.61 Nucleated RBC % 0 Sodium 137 Potassium 3.8 Chloride 107 Carbon Dioxide 26.0 Anion Gap 4 L BUN 6 L Creatinine 0.77 Estim Creat Clear Calc 89.74 Est GFR (MDRD) Af Amer 111 Est GFR (MDRD) Non-Af 92 BUN/Creatinine Ratio 7.8 L Glucose 88 Calcium 9.0 Total Bilirubin 1.00 AST 16 ALT 19 Alkaline Phosphatase 83 Total Protein 7.8 Albumin 3.6 Globulin 4.2 Albumin/Globulin Ratio 0.9 Serum , Qual NEGATIVE Discharge Plan Triage Chief Complaint: General Illness ED Provider: Nilesh Rojo Dx/Rx/DC Orders Clinical Impression: Acute viral syndrome, Nausea vomiting and diarrhea, Cough Instructions: ED Diet Vomiting Diarrhea, ED Vomiting and Diarrhea ... Prescriptions: New promethazine [promethazine] 25 mg tablet 25 mg PO Q6H PRN PRN (Reason: Nausea) Qty: 20 0RF No Action haloperidol 5 MG tablet 5 mg PO PRN PRN (Reason: Anxiety) dronabinol [Marinol] 5 MG capsule 5 mg PO BID sertraline 100 MG tablet 150 mg PO DAILY metronidazole 500 MG tablet 500 mg PO Q8H Qty: 30 0RF promethazine [Promethegan] 25 mg suppository 25 mg RECTAL Q6H PRN PRN (Reason: Nausea) Qty: 10 0RF promethazine 25 mg tablet 25 mg PO Q6H PRN (Reason: nausea and vomiting) Qty: 10 0RF dicyclomine 20 mg tablet 20 mg PO TID Qty: 30 0RF Stand Alone Forms: ED Work / School Excuse Primary Care Provider: Care Physician,No Primary Referrals: Doctor,Your [Non-Staff] - 3-5 Days if not improving Disposition Disposition: Home, Self Care
[2022-10-26] MEDS: Ondansetron 4 MG/2 ML Vial IV (11:45)
[2022-10-26] MEDS: 0.9% Normal Saline 1,000 ML 999 ML IV (11:45)
[2022-10-26 12:04] VITALS: RESP 16
--- NOTE | 2022-10-26 12:06 | ED.RN ---
LAB CALLED BY THIS RN TO OBTAIN BLOODWORK. MULTIPLE UNSUCCESSFUL TEMPTS PER RN AND MEDIC.
[2022-10-26 12:26] LABS: Absolute Lymphocyte Count 2.61 X10^3/uL (0.83-4.51); Absolute Neutrophil Count 4.8 X10^3/uL (2.0-7.7); Basophil# 0.04 X10^3/uL; Basophil% 0.5 % (0-1); Eosinophil# 0.01 X10^3/uL; Eosinophils% 0.1 % (0-5); Hematocrit 37.4 % (37-47); Hemoglobin 11.8 g/dL (12.0-15.0); Lymphocyte # 2.61 X10^3/ul (0.83-4.51); Lymphocyte % 33.4 % (19-41); Mean Corp Hgb Conc 31.6 g/dL (32-36); Mean Corpuscular Hgb 25.9 pg (27.0-32.0); Mean Platelet Vol. 9.7 fl (6.2-12.0); Monocyte# 0.38 X10^3/uL; Monocyte% 4.9 % (0-10); NRBC Flagged by Analyzer 0 % (0-5); Neutrophil # 4.76 X10^3/uL (2.7-7.7); Neutrophil % 60.8 % (47-70); Platelet Count 268 K/mm3 (150-450); RBC Distribution Width CV 15.3 % (11.6-14.6); RBC Distribution Width SD 45.6 fl (35.1-43.9); Red Blood Count 4.56 M/mm3 (4.2-5.4); White Blood Count 7.8 K/mm3 (4.4-11.0)
[2022-10-26 12:33] VITALS: BP 114/85; RESP 16
[2022-10-26 12:41] LABS: Internal QC Validated? YES +Cl - CLEAR BKGD
[2022-10-26 12:42] LABS: Pregnancy, Serum, hCG Quali. NEGATIVE Negative
[2022-10-26 12:43] LABS: ALB/GLOB Ratio 0.9 RATIO (0.9-2.4); AST(SGOT) 16 U/L (15-37); Alanine Aminotransfer ALT/SGPT 19 U/L (13-56); Albumin, Serum 3.6 g/dL (3.2-5.0); Alkaline Phosphatase 83 U/L (45-117); Anion Gap 4 (5-15); BUN 6 mg/dL (7-18); BUN/Creat Ratio 7.8 RATIO (10-20); Chloride 107 mmol/L (98-107); Creatinine, Serum 0.77 mg/dL (0.55-1.02); EST Glomerular Filtration Rate 92 mL/min (>60); Est Glom Filt Rate - Afr Amer 111 mL/min (>60); Estimated Creatinine Clearance 89.74 ml/min; Globulin 4.2 g/dL (2.2-4.2); Glucose 88 mg/dL (74-106); Potassium 3.8 mmol/L (3.5-5.1); Protein, Total 7.8 g/dL (6.4-8.2); Sodium Level 137 mmol/L (136-145)
[2022-10-26] MEDS: proMETHazine 25 MG/ML Syringe 12.5 MG IM (13:50)
[2022-10-26 13:54] VITALS: PULSE 65; RESP 15; O2SAT 100
[2022-10-26 14:01] VITALS: PULSE 65; RESP 18; O2SAT 100
== END 2022-10-26 14:09 | disposition home or self-care (01) ==
PROVIDERS: Emergency Provider Emergency Medicine; Visit Provider Emergency Medicine
DX: B34.9 Viral infection, unspecified (principal); K50.90 Crohn's disease, unspecified, without complications; Z68.42 Body mass index [BMI] 45.0-49.9, adult; E66.9 Obesity, unspecified; F17.210 Nicotine dependence, cigarettes, uncomplicated
CPT/HCPCS: 80053; 84703; 85025; 87428; 96361; 96372; 96374; 99283; J7030; J2405

== ENCOUNTER 2022-12-14 19:14 | Emergency (ER) | payer OTHER, SELFPAY ==
[2022-12-14 19:15] VITALS: BP 166/103; PULSE 79; RESP 18; TEMP 36.1; O2SAT 100; BMI 48.0
--- NOTE | 2022-12-14 20:47 | CT_ITS ---
INDICATION: Pain, history of Crohn''s EXAMINATION: CT Abdomen And Pelvis W/ Contrast Injection TECHNIQUE: Helically acquired images were obtained of the abdomen and pelvis after IV contrast. A radiation dose optimization technique was used for this scan. IV Contrast dosage and agent: IV 100mL Isovue-370 Oral contrast: None. COMPARISON: None. FINDINGS: Visualized lung bases: Unremarkable Liver: Unremarkable Gallbladder: Unremarkable Spleen: Unremarkable Pancreas: Unremarkable Adrenal Glands: Unremarkable Kidneys: Unremarkable Vasculature: Unremarkable GI Tract: Unremarkable Lymphadenopathy: None Peritoneum: No ascites. Bladder: Unremarkable Reproductive organs: Unremarkable Bones/Soft tissues: No suspicious osseous or soft tissue lesions CT/Abdomen/Pelvis W IV Cont ONLY IMPRESSION: No acute abnormalities in the abdomen or pelvis. Electronically Signed: Guillermo Schneider MD at 22:29 EST ,
--- NOTE | 2022-12-14 21:01 | EDS_ITS ---
HPI History of Present Illness Chief Complaint: Abd Pain Informant: patient Narrative Narrative: Patient presents with abdominal pain mostly along the right side. It does radiate a little bit to her back but mostly in the right side. She is denying chest pain or dyspnea to me. Sometimes a deep breath makes her abdomen hurt but not her chest. And she is not short of breath. She had diarrhea couple days ago but now bowel movements are normal. No blood seen. She has had intermittent nausea but no vomiting. Eating might seem to bother it a little bit but not consistently. Patient had her gallbladder out when she was 6 years old. I then find out patient also has Crohn's disease. She denies surgery for this. She has not been on medicine for Crohn's for approximately 6 years. She is not sure if this is a Crohn's exacerbation. She does not think she ate anything abnormal. She gets pain like this commonly but it is normally gone in 20 or 30 minutes and this is still going on after about 5 or 6 hours. No fevers or chills. She denies urinary symptoms to me. She states she can urinate a large volume but this is not new or different. She has never been diagnosed with diabetes. She does not have polydipsia. She has multiple meds listed on her chart here. However, she denies being on any meds for anything at this time. [facility] Medical History Crohn's disease Home Medications dronabinol 5 mg capsule (Marinol) 5 mg PO BID 04/21/18 [History Last Taken Unknown] haloperidol 5 mg tablet 5 mg PO PRN PRN Anxiety 04/21/18 [History Last Taken Unknown] sertraline 100 mg tablet 150 mg PO DAILY 04/21/18 [History Last Taken Unknown] metronidazole 500 mg tablet 500 mg PO Q8H #30 tabs 05/18/18 [Rx Last Taken Unknown] dicyclomine 20 mg tablet 20 mg PO TID abdominal pain #30 tabs 08/18/22 [Rx Last Taken Unknown] promethazine 25 mg rectal suppository (Promethegan) 25 mg RECTAL Q6H PRN PRN Nausea ##10 08/18/22 [Rx Last Taken Unknown] promethazine 25 mg tablet 25 mg PO Q6H PRN nausea and vomiting #10 tabs 08/18/22 [Rx Last Taken Unknown] promethazine 25 mg tablet 25 mg PO Q6H PRN PRN Nausea #20 TABLETS 10/26/22 [Rx Last Taken Unknown] dicyclomine 10 mg capsule 20 mg PO TIDAC #20 CAPSULES 12/14/22 [Rx Last Taken Unknown] ondansetron 4 mg disintegrating tablet 4 mg PO Q8H PRN PRN Nausea #10 tabs 12/14/22 [Rx Last Taken Unknown] potassium chloride 20 mEq tablet,extended release 20 meq PO BID #14 tabs 12/14/22 [Rx Last Taken Unknown] Allergy/AdvReac Type Severity Reaction Status Date / Time benzocaine [From Cetacaine] Allergy Anaphylaxis Verified 12/14/22 19:15 butamben [From Cetacaine] Allergy Anaphylaxis Verified 12/14/22 19:15 methylprednisolone sodium Allergy Anaphylaxis Verified 12/14/22 19:15 succinate [From Solu-Medrol] tetracaine [From Cetacaine] Allergy Anaphylaxis Verified 12/14/22 19:15 midazolam HCl [From Versed] AdvReac Other Verified 12/14/22 19:15 Social History Smoking Status: Current every day smoker tobacco type: cigarettes ROS ROS ED Constitutional Constitutional ED: Denies chills or fever(s) ENT ENT ED: Denies rhinorrhea or sore throat Cardiovascular Cardiovascular: Denies chest pain or palpitations Respiratory/Chest Respiratory/Chest: Denies cough or dyspnea Gastrointestinal Gastrointestinal: Reports abdominal pain, diarrhea and nausea; Denies constipation, melena or vomiting Genitourinary Genitourinary ED: Reports urinary frequency; Denies dysuria or hematuria Musculoskeletal Musculoskeletal: Reports back pain; Denies neck pain Integumentary Denies Abrasions or rash Neurologic Neurologic: Denies paresthesias Endocrine Endocrinology: Reports polyuria; Denies polydipsia Hematologic/Lymphatic Hematologic/Lymphatic: Denies easy bleeding or easy bruising Allergic/Immunologic Allergic/Immunologic ED: Denies urticaria EXAM Physical Exam Narrative Exam Narrative: Patient awake alert and laying in bed. She looks mildly uncomfortable but in no acute distress HEENT shows moist mucous membranes. Eyes show no sign of icterus. Neck is supple with no JVD Lungs are clear and she takes easy deep breaths without pain. Oxygen saturation is at 100% on room air showing no hypoxia. Heart is regular with rate about 75 or 80. No murmur gallop or rub. Abdomen is actually surprisingly soft considering she is states she is in pain. I am not really getting much tenderness that is consistent at all on exam. If I get any gets toward the right side. More in the mid and upper quadrant not in the right lower. No rebound or guarding. No CVA tenderness. Extremities show no edema or swelling Neurologically she is awake alert and appropriate. Const Vital Signs: 12/14/22 19:15 Temperature 96.9 F L Temperature Source Temporal Pulse Rate 79 Respiratory Rate 18 Blood Pressure 166/103 H Blood Pressure Mean 124 Pulse Ox 100 Oxygen Delivery Method Room Air MDM MDM MDM Narrative Medical decision making narrative: My independent interpretation of the patient's CT of the abdomen with IV contrast shows no acute obstructive pattern. I do not see any inflammatory changes. Pancreas looks normal. Gallbladder is missing surgically consistent with her history. Official reading by radiology as no acute abnormalities in the abdomen or pelvis. Patient CBC shows normal white count. Minimal anemia at 11.8. She has not been having any bloody stools. Electrolytes were good other than a low potassium at 2.9. But she is not having any cramping weakness or tingling. She has had low potassium before but normally only when she has had watery diarrhea or C. dif ficile diarrhea. She is not having symptoms consistent with this now. She had 1 soft bowel movement 2 days ago but has been normal since. test was negative. Urine is clean. Since the patient is able to eat and drink and is not having diarrhea or flare of Crohn's, I do think we can get her home. I will write for potassium. We will also write for Zofran and Bentyl for cramping. We discussed reasons to return that would include worsening pain, fevers, blood in the stool, significant diarrhea or other concerns. I will give her referral to justice professor and primary doctor as she does not have anyone currently that she is seeing. Lab Data Attestation: I reviewed the patient's lab results. Labs: Laboratory Results - last 24 hr 12/14/22 12/14/22 12/14/22 20:59 20:59 20:59 WBC 7.8 RBC 4.58 Hgb 11.8 L Hct 37.1 MCV 81.0 MCH 25.8 L MCHC 31.8 L RDW Std Deviation 41.3 RDW Coeff of Silke 14.1 Plt Count 277 MPV 10.2 Immature Gran % (Auto) 0.300 Neut % (Auto) 56.1 Lymph % (Auto) 37.2 [place] % (Auto) 5.7 Eos % (Auto) 0.1 Baso % (Auto) 0.6 Absolute Neuts (auto) 4.4 Absolute Lymphs (auto) 2.92 Nucleated RBC % 0 Sodium 142 Potassium 2.9 L Chloride 108 H Carbon Dioxide 24.0 Anion Gap 10 BUN 7 Creatinine 0.77 Estim Creat Clear Calc 88.90 Est GFR (MDRD) Af Amer 110 Est GFR (MDRD) Non-Af 91 BUN/Creatinine Ratio 9.0 L Glucose 98 Calcium 9.1 Total Bilirubin 0.80 AST 16 ALT 17 Alkaline Phosphatase 65 Total Protein 7.5 Albumin 3.7 Globulin 3.8 Albumin/Globulin Ratio 1.0 Lipase 87 Serum , Qual NEGATIVE Urine Color Urine Clarity Urine pH Ur Specific [place] Urine Protein Urine Glucose (UA) Urine Ketones Urine Occult Blood Urine Nitrite Urine Bilirubin Urine Urobilinogen Ur Leukocyte Esterase Urine RBC Urine WBC Ur Squamous Epith Cells Urine Bacteria Urine Mucus 12/14/22 20:59 WBC RBC Hgb Hct MCV MCH MCHC RDW Std Deviation RDW Coeff of Silke Plt Count MPV Immature Gran % (Auto) Neut % (Auto) Lymph % (Auto) [place] % (Auto) Eos % (Auto) Baso % (Auto) Absolute Neuts (auto) Absolute Lymphs (auto) Nucleated RBC % Sodium Potassium Chloride Carbon Dioxide Anion Gap BUN Creatinine Estim Creat Clear Calc Est GFR (MDRD) Af Amer Est GFR (MDRD) Non-Af BUN/Creatinine Ratio Glucose Calcium Total Bilirubin AST ALT Alkaline Phosphatase Total Protein Albumin Globulin Albumin/Globulin Ratio Lipase Serum , Qual Urine Color Yellow Urine Clarity Clear Urine pH 6.5 Ur Specific [place] 1.010 Urine Protein Negative Urine Glucose (UA) Normal Urine Ketones Negative Urine Occult Blood Negative Urine Nitrite Negative Urine Bilirubin Negative Urine Urobilinogen Normal Ur Leukocyte Esterase Negative Urine RBC 0 SEEN Urine WBC 0 SEEN Ur Squamous Epith Cells 0 SEEN Urine Bacteria 0 SEEN Urine Mucus 0 SEEN Radiography Diagnostic Testing: Clinical Impression(s) from Imaging Studies Abdomen/Pelvis CT 12/14/22 20:47 IMPRESSION: No acute abnormalities in the abdomen or pelvis. Electronically Signed: Guillermo Schneider MD at 22:29 EST , Discharge Plan Triage Chief Complaint: Abd Pain Other Complaint: Chest Other Complaint ED Provider: Jimmy Taylor Dx/Rx/DC Orders Clinical Impression: Abdominal pain, Hypokalemia, History of Crohn's disease Instructions: ED Abdominal Pain Unkn Cause Fem, ED Hypokalemia Prescriptions: New ondansetron [ondansetron] 4 mg tablet,disintegrating 4 mg PO Q8H PRN PRN (Reason: Nausea) Qty: 10 0RF dicyclomine 10 mg capsule 20 mg PO TIDAC Qty: 20 0RF potassium chloride 20 mEq tablet extended release 20 meq PO BID Qty: 14 0RF No Action haloperidol 5 MG tablet 5 mg PO PRN PRN (Reason: Anxiety) dronabinol [Marinol] 5 MG capsule 5 mg PO BID sertraline 100 MG tablet 150 mg PO DAILY metronidazole 500 MG tablet 500 mg PO Q8H Qty: 30 0RF promethazine [Promethegan] 25 mg suppository 25 mg RECTAL Q6H PRN PRN (Reason: Nausea) Qty: 10 0RF promethazine 25 mg tablet 25 mg PO Q6H PRN (Reason: nausea and vomiting) Qty: 10 0RF dicyclomine 20 mg tablet 20 mg PO TID Qty: 30 0RF promethazine [promethazine] 25 mg tablet 25 mg PO Q6H PRN PRN (Reason: Nausea) Qty: 20 0RF Primary Care Provider: Care Physician,No Primary Referrals: Laney Wesley MD [Med Staff - Lighting Fixture Installer] - As soon as possible Juan Alberto Ho DO [Med Staff - Active Staff] - As soon as possible Care Physician,No Primary [Primary Care Provider] - Disposition Disposition: Home, Self Care
[2022-12-14] MEDS: 0.9% Normal Saline 1,000 ML 1000 ML IV (21:14)
[2022-12-14] MEDS: Morphine 4 MG/ML Syringe IV (21:15)
[2022-12-14] MEDS: proMETHazine 25 MG/ML Syringe 12.5 MG IM (21:15)
[2022-12-14 21:24] LABS: Bacteria 0 SEEN /hpf (None Seen); Mucous, Urine 0 SEEN /hpf (<or=2+); Red Blood Cells-Urine 0 SEEN /hpf (0-5); Squamous Epithelial Cells - UA 0 SEEN /hpf (5-10); White Blood Cells 0 SEEN /hpf (0-5)
[2022-12-14 21:26] LABS: Absolute Lymphocyte Count 2.92 X10^3/uL (0.83-4.51); Absolute Neutrophil Count 4.4 X10^3/uL (2.0-7.7); Basophil# 0.05 X10^3/uL; Basophil% 0.6 % (0-1); Eosinophil# 0.01 X10^3/uL; Eosinophils% 0.1 % (0-5); Hematocrit 37.1 % (37-47); Hemoglobin 11.8 g/dL (12.0-15.0); Lymphocyte # 2.92 X10^3/ul (0.83-4.51); Lymphocyte % 37.2 % (19-41); Mean Corp Hgb Conc 31.8 g/dL (32-36); Mean Corpuscular Hgb 25.8 pg (27.0-32.0); Mean Platelet Vol. 10.2 fl (6.2-12.0); Monocyte# 0.45 X10^3/uL; Monocyte% 5.7 % (0-10); NRBC Flagged by Analyzer 0 % (0-5); Neutrophil # 4.39 X10^3/uL (2.7-7.7); Neutrophil % 56.1 % (47-70); Platelet Count 277 K/mm3 (150-450); RBC Distribution Width CV 14.1 % (11.6-14.6); RBC Distribution Width SD 41.3 fl (35.1-43.9); Red Blood Count 4.58 M/mm3 (4.2-5.4); White Blood Count 7.8 K/mm3 (4.4-11.0)
[2022-12-14 21:32] LABS: Color, Urine Yellow (Yellow); Glucose, Dipstick Normal (Normal); Ketone-Dipstick Negative (Negative); Leukocyte Esterase-Dipstick Negative /ul (Negative); Nitrite-Dipstick Negative (Negative); Occult Blood-Urine Negative /ul (Negative); Protein-Dipstick Negative (Negative); Urine Bilirubin Dipstick Negative (Negative); Urine Clarity Clear (Clear); Urine Urobilinogen Normal (Normal); Urine pH 6.5 (5.0 - 8.0)
[2022-12-14 21:39] LABS: Internal QC Validated? YES +Cl - CLEAR BKGD; Pregnancy, Serum, hCG Quali. NEGATIVE Negative
[2022-12-14 21:44] LABS: AST(SGOT) 16 U/L (15-37); Alanine Aminotransfer ALT/SGPT 17 U/L (13-56); Albumin, Serum 3.7 g/dL (3.2-5.0); Alkaline Phosphatase 65 U/L (45-117); Anion Gap 10 (5-15); BUN 7 mg/dL (7-18); Calcium,Total 9.1 mg/dL (8.5-10.1); Chloride 108 mmol/L (98-107); Creatinine, Serum 0.77 mg/dL (0.55-1.02); EST Glomerular Filtration Rate 91 mL/min (>60); Est Glom Filt Rate - Afr Amer 110 mL/min (>60); Globulin 3.8 g/dL (2.2-4.2); Glucose 98 mg/dL (74-106); Lipase 87 U/L (73-393); Potassium 2.9 mmol/L (3.5-5.1); Protein, Total 7.5 g/dL (6.4-8.2); Sodium Level 142 mmol/L (136-145)
[2022-12-14] MEDS: Potassium Chloride Oral Tablet 20 MEQ 40 MEQ PO (23:11)
[2022-12-14 23:31] VITALS: BP 137/72; PULSE 68; RESP 18; O2SAT 100
== END 2022-12-14 23:47 | disposition home or self-care (01) ==
PROVIDERS: Emergency Provider Emergency Medicine; Visit Provider Emergency Medicine
DX: R10.9 Unspecified abdominal pain (principal); K50.90 Crohn's disease, unspecified, without complications; E87.6 Hypokalemia; F17.210 Nicotine dependence, cigarettes, uncomplicated
CPT/HCPCS: 74177; 80053; 81001; 83690; 84703; 85025; 96361; 96372; 96374; 99284; Q9967; A4216

== ENCOUNTER 2023-01-21 15:09 | Emergency (ER) | payer SELFPAY ==
[2023-01-21 15:10] VITALS: BP 136/78; PULSE 77; RESP 18; TEMP 35.7; O2SAT 100; BMI 46.7
--- NOTE | 2023-01-21 15:31 | EKG12_ITS ---
Test Reason : ABD PAIN Blood Pressure : / mmHG Vent. Rate : 069 BPM Atrial Rate : 069 BPM P-R Int : 132 ms QRS Dur : 092 ms QT Int : 432 ms P-R-T Axes : 007 022 009 degrees QTc Int : 462 ms Normal sinus rhythm Normal ECG Confirmed by EFFIE SEAMAN, PAVAN ([id number]), magazine editor LARRY AARON ([id number]) on 01/22/2023 12:47:41 PM Referred By: Confirmed By:PAVAN CHOU MD
--- NOTE | 2023-01-21 15:34 | CT_ITS ---
INDICATION: abdominal pain EXAMINATION: CT ABDOMEN AND PELVIS with CONTRAST - CT Abdomen And Pelvis W/ Contrast Injection TECHNIQUE: Multiple axial images were obtained of the abdomen and pelvis following administration of IV contrast. Planar reconstructions obtained. A radiation dose optimization technique was used for this scan. RADIATION DOSAGE (If Supplied By Facility): CTDIvol = ( 13.70 ) mGy, DLP = ( 1234.80 ) mGycm IV Contrast dosage and agent: 100 mL Isovue-370 Oral contrast: None. COMPARISON: 12/14/2022 FINDINGS: LOWER THORAX: Lungs are clear. Cardiac contour is normal, no pericardial effusion. No coronary vascular calcifications noted. No coronary vascular calcifications. HEPATOBILIARY: Liver: The liver is homogeneous and shows no evidence of focal lesion. Gallbladder: Not visualized likely status post cholecystectomy. No evidence of ductal dilatation. Pancreas: Pancreas is normal size configuration and density. No mass is noted. Spleen: The spleen is homogeneous and normal in size. . BOWEL: Stomach: The stomach is normal in size configuration, no evidence of focal masses, abnormal calcifications. No hiatal hernia noted. Bowel: Small and large have normal configuration, no masses or bowel obstruction noted. Appendix: The visualized appendix has normal appearance.: GENITOURINARY: Adrenals: Both adrenal glands are normal in size. Kidneys: Kidneys appear symmetric in size. No calcifications are seen in the collecting system. There is no hydronephrosis or surrounding fluid. Bladder: Normal Pelvic organs: The visualized pelvic organs are normal in size and configuration. No masses or adenopathy noted. RETROPERITONEUM: There is normal appearance of the abdominal aorta and inferior vena cava. LYMPH NODES: No evidence of retroperitoneal or para-aortic masses fluid collections or adenopathy. PERITONEAL CAVITY: No ascites noted ANTERIOR ABDOMINAL WALL: Normal, no hernia identified. BONES AND SOFT TISSUES: The skeleton shows no evidence for fractures or destructive lesions. OTHER: None CT/Abdomen/Pelvis W IV Cont ONLY IMPRESSION: 1. No masses bowel obstruction abscess free fluid or free air. Normal appendix noted. No evidence diverticulitis. No areas of inflammatory change or wall thickening. 2. No evidence of obstructive uropathy. 3. Gallbladder is not visualized likely status post cholecystectomy. No ductal dilatation. Electronically Signed: Eddi Luna MD at 17:45 EDT ,
--- NOTE | 2023-01-21 15:34 | ED.VIS.GI ---
HPI HPI - GI History of Present Illness Chief Complaint: Abd Pain Narrative Narrative: 32-year-old female with with stated history of IBS and Crohn's disease presenting with nausea, vomiting, diarrhea for about a week. She reports a 10 pound weight loss. No coffee-ground emesis. No black or bloody stools. She does have diffuse generalized pain. Patient states she put her self on a liquid diet because she believed this would keep her out of the emergency room. She states this is not working. She states she has tried Epsom salt baths, hot showers, pressure points and this is working. Patient states he was previously on Biologics distantly. She was on?Cimzia. Patient states as a child she had a partial colonectomy and her gallbladder was taken out at age 7 as a child in [place]. States that her insurance is about to kick in in 2 weeks and that in 3 weeks she has an appointment with [facility] to see a GI doctor. Patient also complains of left jaw pain. She states that she previously had bad teeth in the left mandible. She was concerned that it might be her left ear as well. She has not any drainage or discharge. [facility] Medical History Crohn's disease Home Medications dronabinol 5 mg capsule (Marinol) 5 mg PO BID 04/21/18 [History Last Taken Unknown] haloperidol 5 mg tablet 5 mg PO PRN PRN Anxiety 04/21/18 [History Last Taken Unknown] sertraline 100 mg tablet 150 mg PO DAILY 04/21/18 [History Last Taken Unknown] metronidazole 500 mg tablet 500 mg PO Q8H #30 tabs 05/18/18 [Rx Last Taken Unknown] dicyclomine 20 mg tablet 20 mg PO TID abdominal pain #30 tabs 08/18/22 [Rx Last Taken Unknown] promethazine 25 mg rectal suppository (Promethegan) 25 mg RECTAL Q6H PRN PRN Nausea ##10 08/18/22 [Rx Last Taken Unknown] promethazine 25 mg tablet 25 mg PO Q6H PRN nausea and vomiting #10 tabs 08/18/22 [Rx Last Taken Unknown] promethazine 25 mg tablet 25 mg PO Q6H PRN PRN Nausea #20 TABLETS 10/26/22 [Rx Last Taken Unknown] dicyclomine 10 mg capsule 20 mg PO TIDAC #20 CAPSULES 12/14/22 [Rx Last Taken Unknown] ondansetron 4 mg disintegrating tablet 4 mg PO Q8H PRN PRN Nausea #10 tabs 12/14/22 [Rx Last Taken Unknown] potassium chloride 20 mEq tablet,extended release 20 meq PO BID #14 tabs 12/14/22 [Rx Last Taken Unknown] amoxicillin 875 mg-potassium clavulanate 125 mg tablet 1 tab PO BID #20 tabs 01/21/23 [Rx Last Taken Unknown] dicyclomine 20 mg tablet 20 mg PO TID #14 tabs 01/21/23 [Rx Last Taken Unknown] promethazine 25 mg tablet 25 mg PO TID PRN nausea and vomiting #14 tabs 01/21/23 [Rx Last Taken Unknown] Allergy/AdvReac Type Severity Reaction Status Date / Time benzocaine [From Cetacaine] Allergy Anaphylaxis Verified 01/21/23 15:09 butamben [From Cetacaine] Allergy Anaphylaxis Verified 01/21/23 15:09 methylprednisolone sodium Allergy Anaphylaxis Verified 01/21/23 15:09 succinate [From Solu-Medrol] tetracaine [From Cetacaine] Allergy Anaphylaxis Verified 01/21/23 15:09 midazolam HCl [From Versed] AdvReac Other Verified 01/21/23 15:09 Social History Smoking Status: Current every day smoker tobacco type: cigarettes ROS ROS ED Constitutional Constitutional ED: Denies chills or fever(s) ENT ENT ED: Reports other Details: Left ear pain Left mandible pain ; Denies rhinorrhea or sore throat Cardiovascular Cardiovascular: Denies chest pain or palpitations Respiratory/Chest Respiratory/Chest: Denies cough or dyspnea Gastrointestinal Gastrointestinal: Reports abdominal pain, diarrhea, nausea and vomiting Genitourinary Genitourinary ED: Denies dysuria or hematuria Musculoskeletal Musculoskeletal: Denies arthralgias Integumentary Denies abscess Neurologic Neurologic: Reports headache(s) Psychiatric Psychiatric: Denies anxiety or depression EXAM Physical Exam Const Vital Signs: 01/21/23 15:10 01/21/23 17:09 Temperature 96.3 F L Temperature Source Temporal Pulse Rate 77 Respiratory Rate 18 18 Blood Pressure 136/78 H Blood Pressure Mean 97 Pulse Ox 100 Oxygen Delivery Method Room Air Positive well nourished and obese General Appearance ED: NAD Nutritional Appearance: obese HEENT Reports moist mucous membranes HEENT Narrative: First and second molars on the left. Essentially have eroded. There is no drainable abscess here. Multiple dental caries. Buccal mucosa normal. Sublingual edema. Tolerating secretions. No submandibular or submental edema. normocephalic Eyes PERRL and EOMs intact bilaterally General Eye ED: Negative for pale conjunctiva or scleral icterus Resp normal respiratory effort and clear to auscultation bilaterally Auscultation: Negative for rales, rhonchi or wheezes Cardio regular rate and regular rhythm GI GI Narrative: Diffuse generalized tenderness. No peritoneal signs. No rebound or guarding. Back/Spine no CVA tenderness Neuro CN's II-XII intact bilaterally Sensorium / Orientation: alert Motor Exam: strength 5/5 throughout Psych mental status grossly normal MDM MDM MDM Narrative Medical decision making narrative: Patient presenting with diffuse generalized abdominal pain, nausea, vomiting, diarrhea. She reports a history of Crohn's disease and IBS. Her abdominal exam is benign currently but she reports pain everywhere. Differential includes but is not limited to gastritis, peptic ulcer disease, appendicitis, diverticulitis, pancreatitis, small bowel obstruction, viral etiology, IBS, Crohn's flare. She has never lazarus Sheppard sign so low suspicion for cholecystitis or cholelithiasis. There was a protocol EKG performed because the patient was initially complaining of the left jaw pain and this shows a normal sinus rhythm with a ventricular rate of 69 bpm without sign of ischemic change. After examining her I do not believe she needs a troponin. I believe this is all due to dental infection. CBC to assess white blood cell count, differential. CMP to assess liver function, renal function, glucose, anion gap. Lipase to assess for pancreatitis. Serum hCG to assess for . Urinalysis assess for UTI. Patient medicated with morphine and Zofran. He is given a liter of normal saline. Currently her vital signs are stable and she is afebrile. She did ask me to also assess her left molar and premolar which is been hurting her over the course of the week. These have essentially eroded over time. She will likely need antibiotics for this. CBC shows minimal leukocytosis with white count 11.1. Hemoglobin hematocrit are stable. Platelets are normal. Creatinine slightly elevated at 1.06 previously 0.77 months ago. Patient was given IV fluids. Liver function testing unremarkable. Lipase of negative. Serum test negative. Urinalysis negative for infection. Patient was medicated with a second dose of morphine at her request after the CT was performed. CT of the abdomen pelvis was essentially normal with no acute findings. On reevaluation the patient is doing well. She request a work note for today. I will put her on Augmentin for her dental infection. She is given a dental referral sheet. She was given Phenergan and Bentyl to help with her abdominal symptoms. She is amenable to this. She is discharged home in stable condition. Impression: 1. Abdominal pain 2. Nausea/vomiting 3. Dental infection 4. Diarrhea Lab Data Attestation: I reviewed the patient's lab results. Labs: Laboratory Results - last 24 hr 01/21/23 01/21/23 01/21/23 04:20 04:20 15:50 WBC 11.1 H RBC 4.99 Hgb 13.0 Hct 41.2 MCV 82.6 MCH 26.1 L MCHC 31.6 L RDW Std Deviation 43.9 RDW Coeff of Silke 14.7 H Plt Count 282 MPV 10.8 Immature Gran % (Auto) 0.300 Neut % (Auto) 69.2 Lymph % (Auto) 25.7 [place] % (Auto) 4.3 Eos % (Auto) 0.1 Baso % (Auto) 0.4 Absolute Neuts (auto) 7.7 Absolute Lymphs (auto) 2.86 Nucleated RBC % 0 Sodium 139 Potassium 3.8 Chloride 108 H Carbon Dioxide 24.0 Anion Gap 7 BUN 9 Creatinine 1.06 H Estim Creat Clear Calc 64.58 Est GFR (MDRD) Af Amer 76 Est GFR (MDRD) Non-Af 63 BUN/Creatinine Ratio 8.5 L Glucose 114 H Calcium 8.9 Total Bilirubin 0.90 AST 12 L ALT 15 Alkaline Phosphatase 74 Total Protein 7.7 Albumin 3.4 Globulin 4.3 H Albumin/Globulin Ratio 0.8 L Lipase 57 L Serum , Qual NEGATIVE Urine Color Urine Clarity Urine pH Ur Specific [place] Urine Protein Urine Glucose (UA) Urine Ketones Urine Occult Blood Urine Nitrite Urine Bilirubin Urine Urobilinogen Ur Leukocyte Esterase Urine RBC Urine WBC Ur Squamous Epith Cells Urine Bacteria Urine Mucus 01/21/23 16:11 WBC RBC Hgb Hct MCV MCH MCHC RDW Std Deviation RDW Coeff of Silke Plt Count MPV Immature Gran % (Auto) Neut % (Auto) Lymph % (Auto) [place] % (Auto) Eos % (Auto) Baso % (Auto) Absolute Neuts (auto) Absolute Lymphs (auto) Nucleated RBC % Sodium Potassium Chloride Carbon Dioxide Anion Gap BUN Creatinine Estim Creat Clear Calc Est GFR (MDRD) Af Amer Est GFR (MDRD) Non-Af BUN/Creatinine Ratio Glucose Calcium Total Bilirubin AST ALT Alkaline Phosphatase Total Protein Albumin Globulin Albumin/Globulin Ratio Lipase Serum , Qual Urine Color Straw Urine Clarity Clear Urine pH 6.5 Ur Specific [place] 1.010 Urine Protein Negative Urine Glucose (UA) Normal Urine Ketones Negative Urine Occult Blood Negative Urine Nitrite Negative Urine Bilirubin Negative Urine Urobilinogen Normal Ur Leukocyte Esterase Negative Urine RBC 0 SEEN Urine WBC 0 SEEN Ur Squamous Epith Cells 0-5 SEEN Urine Bacteria 0 SEEN Urine Mucus 0 SEEN Radiography Diagnostic Testing: Clinical Impression(s) from Imaging Studies Abdomen/Pelvis CT 01/21/23 15:34 IMPRESSION: 1. No masses bowel obstruction abscess free fluid or free air. Normal appendix noted. No evidence diverticulitis. No areas of inflammatory change or wall thickening. 2. No evidence of obstructive uropathy. 3. Gallbladder is not visualized likely status post cholecystectomy. No ductal dilatation. Electronically Signed: Eddi Luna MD at 17:45 EDT , Discharge Plan Triage Chief Complaint: Abd Pain ED Provider: Garrett Brooks Dx/Rx/DC Orders Prescriptions: New dicyclomine 20 mg tablet 20 mg PO TID Qty: 14 0RF promethazine 25 mg tablet 25 mg PO TID PRN (Reason: nausea and vomiting) Qty: 14 0RF amoxicillin-pot clavulanate 875-125 mg tablet 1 tab PO BID Qty: 20 0RF No Action haloperidol 5 MG tablet 5 mg PO PRN PRN (Reason: Anxiety) dronabinol [Marinol] 5 MG capsule 5 mg PO BID sertraline 100 MG tablet 150 mg PO DAILY metronidazole 500 MG tablet 500 mg PO Q8H Qty: 30 0RF promethazine [Promethegan] 25 mg suppository 25 mg RECTAL Q6H PRN PRN (Reason: Nausea) Qty: 10 0RF promethazine 25 mg tablet 25 mg PO Q6H PRN (Reason: nausea and vomiting) Qty: 10 0RF dicyclomine 20 mg tablet 20 mg PO TID Qty: 30 0RF promethazine [promethazine] 25 mg tablet 25 mg PO Q6H PRN PRN (Reason: Nausea) Qty: 20 0RF ondansetron [ondansetron] 4 mg tablet,disintegrating 4 mg PO Q8H PRN PRN (Reason: Nausea) Qty: 10 0RF dicyclomine 10 mg capsule 20 mg PO TIDAC Qty: 20 0RF potassium chloride 20 mEq tablet extended release 20 meq PO BID Qty: 14 0RF Stand Alone Forms: ED Work / School Excuse Primary Care Provider: Care Physician,No Primary Referrals: [facility] [Outside] - 3-5 Days Care Physician,No Primary [Primary Care Provider] - Disposition Disposition: Home, Self Care
[2023-01-21] MEDS: 0.9% Normal Saline 1,000 ML 1000 ML IV (15:52)
[2023-01-21] MEDS: Ondansetron 4 MG/2 ML Vial IV (15:54)
[2023-01-21] MEDS: Morphine 4 MG/ML Syringe IV ×2 (15:54→17:22)
[2023-01-21 16:11] LABS: Absolute Lymphocyte Count 2.86 X10^3/uL (0.83-4.51); Absolute Neutrophil Count 7.7 X10^3/uL (2.0-7.7); Basophil# 0.05 X10^3/uL; Basophil% 0.4 % (0-1); Eosinophil# 0.01 X10^3/uL; Eosinophils% 0.1 % (0-5); Hematocrit 41.2 % (37-47); Lymphocyte # 2.86 X10^3/ul (0.83-4.51); Lymphocyte % 25.7 % (19-41); Mean Corp Hgb Conc 31.6 g/dL (32-36); Mean Corpuscular Hgb 26.1 pg (27.0-32.0); Mean Corpuscular Volume 82.6 fL (81-99); Mean Platelet Vol. 10.8 fl (6.2-12.0); Monocyte# 0.48 X10^3/uL; Monocyte% 4.3 % (0-10); NRBC Flagged by Analyzer 0 % (0-5); Neutrophil # 7.71 X10^3/uL (2.7-7.7); Neutrophil % 69.2 % (47-70); Platelet Count 282 K/mm3 (150-450); RBC Distribution Width CV 14.7 % (11.6-14.6); RBC Distribution Width SD 43.9 fl (35.1-43.9); Red Blood Count 4.99 M/mm3 (4.2-5.4); White Blood Count 11.1 K/mm3 (4.4-11.0)
[2023-01-21 16:17] LABS: Bacteria 0 SEEN /hpf (None Seen); Mucous, Urine 0 SEEN /hpf (<or=2+); Red Blood Cells-Urine 0 SEEN /hpf (0-5); White Blood Cells 0 SEEN /hpf (0-5)
[2023-01-21 16:19] LABS: Color, Urine Straw (Yellow); Glucose, Dipstick Normal (Normal); Ketone-Dipstick Negative (Negative); Leukocyte Esterase-Dipstick Negative /ul (Negative); Nitrite-Dipstick Negative (Negative); Occult Blood-Urine Negative /ul (Negative); Protein-Dipstick Negative (Negative); Urine Bilirubin Dipstick Negative (Negative); Urine Clarity Clear (Clear); Urine Urobilinogen Normal (Normal); Urine pH 6.5 (5.0 - 8.0)
[2023-01-21 16:28] LABS: Squamous Epithelial Cells - UA 0-5 SEEN /hpf (5-10)
[2023-01-21 16:43] LABS: Internal QC Validated? YES +Cl - CLEAR BKGD; Pregnancy, Serum, hCG Quali. NEGATIVE Negative
[2023-01-21 16:46] LABS: ALB/GLOB Ratio 0.8 RATIO (0.9-2.4); AST(SGOT) 12 U/L (15-37); Alanine Aminotransfer ALT/SGPT 15 U/L (13-56); Albumin, Serum 3.4 g/dL (3.2-5.0); Alkaline Phosphatase 74 U/L (45-117); Anion Gap 7 (5-15); BUN 9 mg/dL (7-18); BUN/Creat Ratio 8.5 RATIO (10-20); Calcium,Total 8.9 mg/dL (8.5-10.1); Chloride 108 mmol/L (98-107); Creatinine, Serum 1.06 mg/dL (0.55-1.02); EST Glomerular Filtration Rate 63 mL/min (>60); Est Glom Filt Rate - Afr Amer 76 mL/min (>60); Estimated Creatinine Clearance 64.58 ml/min; Globulin 4.3 g/dL (2.2-4.2); Glucose 114 mg/dL (74-106); Lipase 57 U/L (73-393); Potassium 3.8 mmol/L (3.5-5.1); Protein, Total 7.7 g/dL (6.4-8.2); Sodium Level 139 mmol/L (136-145)
[2023-01-21 17:09] VITALS: RESP 18
[2023-01-21] MEDS: Amox/Clavulanate 875 MG Tablet PO (18:46)
== END 2023-01-21 18:49 | disposition home or self-care (01) ==
PROVIDERS: Emergency Provider Student in an Organized Health Care Education/Training Program; Visit Provider Student in an Organized Health Care Education/Training Program
DX: R10.9 Unspecified abdominal pain (principal); R11.2 Nausea with vomiting, unspecified; K04.7 Periapical abscess without sinus; R19.7 Diarrhea, unspecified; F17.210 Nicotine dependence, cigarettes, uncomplicated; E66.9 Obesity, unspecified
CPT/HCPCS: 74177; 80053; 81001; 83690; 84703; 85025; 93005; 96361; 96374; 96375; 96376; 99283; J7030; Q9967; A4216; J2405

== ENCOUNTER 2023-05-17 15:24 | Emergency (ER) | payer OTHER, SELFPAY ==
[2023-05-17 15:25] VITALS: BP 134/96; PULSE 83; RESP 16; TEMP 36.9; O2SAT 100; BMI 45.8
--- NOTE | 2023-05-17 15:53 | EDS_ITS ---
HPI <MITCHEL Osei - Last Filed: 05/17/23 17:33> History of Present Illness Chief Complaint: General Illness Narrative Narrative: 32-year-old female presents with 4 days of subjective fever, chills, congestion with productive cough, and diarrhea. She has Crohn's and has chronic diarrhea but it is increased to about 15 episodes a day. She is concerned she could be hypokalemic as she has had this issue in the past. She has nausea but no vomiting. Today she woke up short of breath with a cough which prompted her to come in. 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 PFS <MITCHEL Osei - Last Filed: 05/17/23 17:33> [facility] Medical History Crohn's disease Home Medications dronabinol 5 mg capsule (Marinol) 5 mg PO BID 04/21/18 [History Last Taken Unknown] haloperidol 5 mg tablet 5 mg PO PRN PRN Anxiety 04/21/18 [History Last Taken Unknown] sertraline 100 mg tablet 150 mg PO DAILY 04/21/18 [History Last Taken Unknown] metronidazole 500 mg tablet 500 mg PO Q8H #30 tabs 05/18/18 [Rx Last Taken Unknown] dicyclomine 20 mg tablet 20 mg PO TID abdominal pain #30 tabs 08/18/22 [Rx Last Taken Unknown] promethazine 25 mg rectal suppository (Promethegan) 25 mg RECTAL Q6H PRN PRN Nausea ##10 08/18/22 [Rx Last Taken Unknown] promethazine 25 mg tablet 25 mg PO Q6H PRN nausea and vomiting #10 tabs 08/18/22 [Rx Last Taken Unknown] promethazine 25 mg tablet 25 mg PO Q6H PRN PRN Nausea #20 TABLETS 10/26/22 [Rx Last Taken Unknown] dicyclomine 10 mg capsule 20 mg (2 x 10 mg) PO TIDAC #20 CAPSULES 12/14/22 [Rx Last Taken Unknown] ondansetron 4 mg disintegrating tablet 4 mg PO Q8H PRN PRN Nausea #10 tabs 12/14/22 [Rx Last Taken Unknown] potassium chloride 20 mEq tablet,extended release 20 meq PO BID #14 tabs 12/14/22 [Rx Last Taken Unknown] amoxicillin 875 mg-potassium clavulanate 125 mg tablet 1 tab PO BID #20 tabs 01/21/23 [Rx Last Taken Unknown] dicyclomine 20 mg tablet 20 mg PO TID #14 tabs 01/21/23 [Rx Last Taken Unknown] promethazine 25 mg tablet 25 mg PO TID PRN nausea and vomiting #14 tabs 01/21/23 [Rx Last Taken Unknown] Allergy/AdvReac Type Severity Reaction Status Date / Time benzocaine [From Cetacaine] Allergy Anaphylaxis Verified 05/17/23 15:25 butamben [From Cetacaine] Allergy Anaphylaxis Verified 05/17/23 15:25 methylprednisolone sodium Allergy Anaphylaxis Verified 05/17/23 15:25 succinate [From Solu-Medrol] tetracaine [From Cetacaine] Allergy Anaphylaxis Verified 05/17/23 15:25 midazolam HCl [From Versed] AdvReac Other Verified 05/17/23 15:25 Social History Smoking Status: Current every day smoker tobacco type: cigarettes ROS <MITCHEL Osei - Last Filed: 05/17/23 17:33> ROS ED ROS Narrative Constitutional: Positive for malaise. Negative for fever, chills. ENT: Positive for rhinorrhea. CVS: Negative for palpitations, chest pain. Respiratory: Positive for shortness of breath, cough. Negative for orthopnea. GI: Positive for nausea, diarrhea. Negative for abdominal pain, vomiting, constipation, melena, hematochezia. : Negative for dysuria. Neuro: Negative for headache. EXAM <MITCHEL Osei - Last Filed: 05/17/23 17:33> Physical Exam Narrative Exam Narrative: CONST: Patient sitting in no acute distress. EYES: Normal inspection. NECK: Normal inspection. RESP: No respiratory distress, CTAB. CVS: Regular rate and rhythm, no murmur, no gallop. ABD: Soft and nontender, no guarding or rebound, nondistended, no hepatosplenomegaly. SKIN: Color normal, no rash, warm, dry, intact. EXTREMITIES: Normal appearance, no pedal edema. NEURO: Oriented x4. PSYCH: Normal affect. Const Vital Signs: 05/17/23 15:25 05/17/23 16:27 Temperature 98.4 F Temperature Source Temporal Pulse Rate 83 Respiratory Rate 16 18 Blood Pressure 134/96 H Blood Pressure Mean 108 Pulse Ox 100 <Dr. Joseph Delgado DO - Last Filed: 05/17/23 21:31> Physical Exam Const Vital Signs: 05/17/23 15:25 05/17/23 16:27 Temperature 98.4 F Temperature Source Temporal Pulse Rate 83 Respiratory Rate 16 18 Blood Pressure 134/96 H Blood Pressure Mean 108 Pulse Ox 100 MDM <MITCHEL Osei - Last Filed: 05/17/23 17:33> MDM MDM Narrative Medical decision making narrative: Patient had congestion, cough, and diarrhea. She appears well and nontoxic and is afebrile with normal vital signs. Her exam is benign. Since she has had increased diarrhea and history of hyperkalemia BMP was checked. Potassium is normal at 3.6, BUN 11, creatinine 0.89. CXR shows no acute process and COVID/flu swabs are negative. She was treated symptomatically with IV fluids and Phenergan. She refused Toradol stating it was not strong enough to work for her body aches and chest pain secondary to coughing. I discussed symptomatic treatment for her viral illness and she was discharged in stable condition. Differential: Viral URI, Crohn's flare, pneumonia Lab Data Labs: Laboratory Results - last 24 hr 05/17/23 16:47 Sodium 138 Potassium 3.6 Chloride 106 Carbon Dioxide 24.0 Anion Gap 8 BUN 11 Creatinine 0.89 Estim Creat Clear Calc 76.91 Est GFR (MDRD) Af Amer 93 Est GFR (MDRD) Non-Af 77 BUN/Creatinine Ratio 12.3 Glucose 88 Calcium 8.9 Radiography Diagnostic Testing: Clinical Impression(s) from Imaging Studies Chest X-Ray 05/17/23 17:05 IMPRESSION: Normal x-ray examination of the chest. Electronically Signed: Robert Calero MD at 17:22 EDT , ED attending interpretation of 2-view chest x-ray shows normal heart size, no acute infiltrate, edema, or effusion. <Dr. Joseph Delgado, DO - Last Filed: 05/17/23 21:31> [facility] [place] Lab Data Labs: Laboratory Results - last 24 hr 05/17/23 16:47 Sodium 138 Potassium 3.6 Chloride 106 Carbon Dioxide 24.0 Anion Gap 8 BUN 11 Creatinine 0.89 Estim Creat Clear Calc 76.91 Est GFR (MDRD) Af Amer 93 Est GFR (MDRD) Non-Af 77 BUN/Creatinine Ratio 12.3 Glucose 88 Calcium 8.9 Radiography Diagnostic Testing: Clinical Impression(s) from Imaging Studies Chest X-Ray 05/17/23 17:05 IMPRESSION: Normal x-ray examination of the chest. Electronically Signed: Robert Calero MD at 17:22 EDT , Treatment and Re-Evaluation :: I have personally performed a face to face assessment of the patient and have reviewed the DMITRI Note. I performed a substantive portion of the visit including all aspects of the following. My mixon findings include: History: Patient presents with cough, congestion, and diarrhea that have been getting worse over the past few days. Patient states she is coughing up some yellow sputum with some streaks of blood in it. 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 Exam: Vital signs are stable. Patient is afebrile. Patient is in no acute distress. Oral mucosa is pink and moist. Neck is supple. Trachea is midline. There is no JVD. Heart was regular rate and rhythm. Lungs were clear and equal bilaterally. Abdomen is soft. Bowel sounds are normal. There is mild diffuse tenderness. There is no rebound or guarding noted. Cranial nerves II through XII are intact. There are no focal motor or sensory deficits noted. Medical Decision Making: Patient is given IV fluids, Phenergan, and Toradol. Differential diagnosis includes viral illness, Crohn's exacerbation, dehydration, electrolyte abnormality, COVID-19 infection, influenza infection, and pneumonia. Chest x-ray will be obtained to assess for pneumonia. COVID-19 rapid antigen will be obtained to assess for COVID-19 infection. Influenza A and influenza B antigens will be obtained to assess for influenza infection. Basic metabolic profile will be obtained to assess for renal function and electrolyte abnormality. Basic metabolic profile was reviewed and was within normal limits. COVID-19 rapid antigen was reviewed and was negative. Influenza A and influenza B antigens were reviewed and were negative. PA and lateral chest x-ray was obtained. There are 2 views. On my independent interpretation, lung garrison are clear. There is normal cardiac silhouette. Bony thorax is normal. There is no acute process noted. Radiologist also interpreted the x- ray and agrees. Patient was advised of her findings. Patient was instructed to follow-up with her primary care physician in 5 to 7 days. Patient understood and was agreeable with the plan. All questions were answered. Discharge Plan Triage Chief Complaint: General Illness ED Midlevel Provider: Harriet Chirinos ED Provider: Joseph Delgado Dx/Rx/DC Orders Clinical Impression: Acute viral syndrome Instructions: ED Viral Syndrome (Adult) Prescriptions: No Action haloperidol 5 MG tablet 5 mg PO PRN PRN (Reason: Anxiety) dronabinol [Marinol] 5 MG capsule 5 mg PO BID sertraline 100 MG tablet 150 mg PO DAILY metronidazole 500 MG tablet 500 mg PO Q8H Qty: 30 0RF promethazine [Promethegan] 25 mg suppository 25 mg RECTAL Q6H PRN PRN (Reason: Nausea) Qty: 10 0RF promethazine 25 mg tablet 25 mg PO Q6H PRN (Reason: nausea and vomiting) Qty: 10 0RF dicyclomine 20 mg tablet 20 mg PO TID Qty: 30 0RF promethazine [promethazine] 25 mg tablet 25 mg PO Q6H PRN PRN (Reason: Nausea) Qty: 20 0RF ondansetron [ondansetron] 4 mg tablet,disintegrating 4 mg PO Q8H PRN PRN (Reason: Nausea) Qty: 10 0RF dicyclomine 10 mg capsule 20 mg PO TIDAC Qty: 20 0RF potassium chloride 20 mEq tablet extended release 20 meq PO BID Qty: 14 0RF dicyclomine 20 mg tablet 20 mg PO TID Qty: 14 0RF promethazine 25 mg tablet 25 mg PO TID PRN (Reason: nausea and vomiting) Qty: 14 0RF amoxicillin-pot clavulanate 875-125 mg tablet 1 tab PO BID Qty: 20 0RF Primary Care Provider: [facility] Madd[facility] Gambino [facility] - Activity Restrictions/Additional Instructions: Your potassium was normal at 3.6. Your COVID and flu test are negative and your chest x-ray is normal with no evidence of pneumonia. I suspect you have a viral illness and recommend rest, fluids, and [id number] pain relievers as needed. Disposition Disposition: Home, Self Care Discharge Date/Time: 05/17/23 17:39
[2023-05-17 16:27] VITALS: RESP 18
[2023-05-17] MEDS: proMETHazine 25 MG Tablet 12.5 MG PO (16:57)
[2023-05-17] MEDS: 0.9% Normal Saline 1,000 ML 999 ML IV (16:57)
--- NOTE | 2023-05-17 17:05 | RAD_ITS ---
STUDY: X-RAY CHEST REASON FOR EXAM: Female, 32 years old. cough TECHNIQUE: Frontal and lateral views of the chest. COMPARISON: None. FINDINGS: The lungs are clear and expanded. There is no demonstrated pleural abnormality. Normal size heart. Normal mediastinum and soo. Normal visualized pulmonary arteries. Normal visualized aortic arch and descending thoracic aorta. Normal visualized thoracic spine. Normal visualized ribs, clavicles, and shoulders. There is no demonstrated abnormality of the visualized soft tissue structures of the upper abdomen. RAD/Chest PA and Lateral IMPRESSION: Normal x-ray examination of the chest. Electronically Signed: Robert Calero MD at 17:22 EDT ,
[2023-05-17 17:14] LABS: Anion Gap 8 (5-15); BUN 11 mg/dL (7-18); BUN/Creat Ratio 12.3 RATIO (10-20); Calcium,Total 8.9 mg/dL (8.5-10.1); Chloride 106 mmol/L (98-107); Creatinine, Serum 0.89 mg/dL (0.55-1.02); EST Glomerular Filtration Rate 77 mL/min (>60); Est Glom Filt Rate - Afr Amer 93 mL/min (>60); Estimated Creatinine Clearance 76.91 ml/min; Glucose 88 mg/dL (74-106); Potassium 3.6 mmol/L (3.5-5.1); Sodium Level 138 mmol/L (136-145)
== END 2023-05-17 17:39 | disposition home or self-care (01) ==
PROVIDERS: Physician Assistant; Emergency Provider Emergency Medicine; Visit Provider Emergency Medicine
DX: B34.9 Viral infection, unspecified (principal); F17.210 Nicotine dependence, cigarettes, uncomplicated
CPT/HCPCS: 71046; 80048; 87428; 96360; 99284; J7030; A4216

== ENCOUNTER 2023-06-05 04:32 | Emergency (ER) | payer OTHER, MEDICAID, SELFPAY ==
[2023-06-05 04:33] VITALS: BP 146/103; PULSE 84; RESP 18; TEMP 37.2; O2SAT 96; BMI 46.3
--- NOTE | 2023-06-05 04:59 | RAD_ITS ---
EXAM: XR CHEST, 2 VIEWS CLINICAL INDICATION: chest pain TECHNIQUE: Frontal and lateral views of the chest. COMPARISON: May 17, 2023. FINDINGS: LUNGS AND PLEURAL SPACES: Unremarkable. No consolidation or edema. No pneumothorax. No effusion. HEART: Unremarkable. Cardiac silhouette not enlarged. MEDIASTINUM: Central airways and mediastinal contour are unremarkable. BONES/JOINTS: Unremarkable. SOFT TISSUES: Unremarkable. RAD/Chest PA and Lateral IMPRESSION: No radiographic evidence of acute cardiopulmonary disease. Electronically Signed: Franci Graff MD at 6:36 EDT ,
--- NOTE | 2023-06-05 05:11 | EKG12_ITS ---
Test Reason : DYSRHYTHMIA Blood Pressure : / mmHG Vent. Rate : 058 BPM Atrial Rate : 058 BPM P-R Int : 158 ms QRS Dur : 100 ms QT Int : 486 ms P-R-T Axes : 038 032 027 degrees QTc Int : 477 ms Sinus bradycardia with marked sinus arrhythmia Otherwise normal ECG Confirmed by MARY SEAMAN, RICHARD ([id number]), editorial specialist LARRY AARON ([id number]) on 06/07/2023 8:49:47 AM Referred By: KATTY Confirmed By:LETITIA HERNANDEZ MD
[2023-06-05 05:35] LABS: Absolute Lymphocyte Count 3.02 X10^3/uL (0.83-4.51); Absolute Neutrophil Count 6.5 X10^3/uL (2.0-7.7); Basophil# 0.05 X10^3/uL; Basophil% 0.5 % (0-1); Eosinophil# 0.01 X10^3/uL; Eosinophils% 0.1 % (0-5); Hematocrit 38.1 % (37-47); Hemoglobin 12.3 g/dL (12.0-15.0); Lymphocyte # 3.02 X10^3/ul (0.83-4.51); Lymphocyte % 29.9 % (19-41); Mean Corp Hgb Conc 32.3 g/dL (32-36); Mean Corpuscular Hgb 27.5 pg (27.0-32.0); Mean Platelet Vol. 10.2 fl (6.2-12.0); Monocyte# 0.48 X10^3/uL; Monocyte% 4.8 % (0-10); NRBC Flagged by Analyzer 0 % (0-5); Neutrophil # 6.51 X10^3/uL (2.7-7.7); Neutrophil % 64.4 % (47-70); Platelet Count 243 K/mm3 (150-450); RBC Distribution Width CV 13.9 % (11.6-14.6); RBC Distribution Width SD 43.1 fl (35.1-43.9); Red Blood Count 4.48 M/mm3 (4.2-5.4); White Blood Count 10.1 K/mm3 (4.4-11.0)
[2023-06-05 05:56] LABS: Anion Gap 4 (5-15); BUN 3 mg/dL (7-18); BUN/Creat Ratio 4.2 RATIO (10-20); Calcium,Total 8.3 mg/dL (8.5-10.1); Chloride 110 mmol/L (98-107); Creatinine, Serum 0.71 mg/dL (0.55-1.02); EST Glomerular Filtration Rate 99 mL/min (>60); Est Glom Filt Rate - Afr Amer 120 mL/min (>60); Estimated Creatinine Clearance 96.41 ml/min; Glucose 96 mg/dL (74-106); Sodium Level 136 mmol/L (136-145); Troponin-I HS 3 pg/mL (3.0-54.0)
--- NOTE | 2023-06-05 06:21 | EDS_ITS ---
HPI History of Present Illness Chief Complaint: Upper Extremity Injury Informant: patient Narrative Narrative: Patient is a 32-year-old female with past medical history of Crohn's disease. She states that she was at work this evening when she was removing a biohazard bag and had some type of fluid leak onto her right arm. She states after this she began to feel like her right arm was swollen and began to feel cool with numbness and tingling. She states that then she noticed some pain radiating towards her chest. She states she had concerned that this could be cardiac in nature based on the symptoms moving towards her chest and therefore she comes in for evaluation [facility] Medical History Crohn's disease Home Medications dronabinol 5 mg capsule (Marinol) 5 mg PO BID 04/21/18 [History Last Taken Unknown] haloperidol 5 mg tablet 5 mg PO PRN PRN Anxiety 04/21/18 [History Last Taken Unknown] sertraline 100 mg tablet 150 mg PO DAILY 04/21/18 [History Last Taken Unknown] metronidazole 500 mg tablet 500 mg PO Q8H #30 tabs 05/18/18 [Rx Last Taken Unknown] dicyclomine 20 mg tablet 20 mg PO TID abdominal pain #30 tabs 08/18/22 [Rx Last Taken Unknown] promethazine 25 mg rectal suppository (Promethegan) 25 mg RECTAL Q6H PRN PRN Nausea ##10 08/18/22 [Rx Last Taken Unknown] promethazine 25 mg tablet 25 mg PO Q6H PRN nausea and vomiting #10 tabs 08/18/22 [Rx Last Taken Unknown] promethazine 25 mg tablet 25 mg PO Q6H PRN PRN Nausea #20 TABLETS 10/26/22 [Rx Last Taken Unknown] dicyclomine 10 mg capsule 20 mg (2 x 10 mg) PO TIDAC #20 CAPSULES 12/14/22 [Rx Last Taken Unknown] ondansetron 4 mg disintegrating tablet 4 mg PO Q8H PRN PRN Nausea #10 tabs 12/14/22 [Rx Last Taken Unknown] potassium chloride 20 mEq tablet,extended release 20 meq PO BID #14 tabs 12/14/22 [Rx Last Taken Unknown] amoxicillin 875 mg-potassium clavulanate 125 mg tablet 1 tab PO BID #20 tabs 0 01/21/23 [Rx Last Taken Unknown] dicyclomine 20 mg tablet 20 mg PO TID #14 tabs 01/21/23 [Rx Last Taken Unknown] promethazine 25 mg tablet 25 mg PO TID PRN nausea and vomiting #14 tabs 01/21/23 [Rx Last Taken Unknown] Allergy/AdvReac Type Severity Reaction Status Date / Time benzocaine [From Cetacaine] Allergy Anaphylaxis Verified 06/05/23 04:38 butamben [From Cetacaine] Allergy Anaphylaxis Verified 06/05/23 04:38 methylprednisolone sodium Allergy Anaphylaxis Verified 06/05/23 04:38 succinate [From Solu-Medrol] tetracaine [From Cetacaine] Allergy Anaphylaxis Verified 06/05/23 04:38 midazolam HCl [From Versed] AdvReac Other Verified 06/05/23 04:38 Social History Smoking Status: Current every day smoker tobacco type: cigarettes ROS ROS ED Constitutional Constitutional ED: Denies chills or fever(s) ENT ENT ED: Denies sore throat Cardiovascular Cardiovascular: Reports chest pain; Denies palpitations or racing heartbeat Respiratory/Chest Respiratory/Chest: Denies cough or dyspnea Gastrointestinal Gastrointestinal: Denies abdominal pain, diarrhea, nausea or vomiting Genitourinary Genitourinary ED: Denies dysuria Musculoskeletal Musculoskeletal: Reports other Details: Positive right arm pain Integumentary Denies rash Neurologic Neurologic: Denies headache(s) or paresthesias Hematologic/Lymphatic Hematologic/Lymphatic: Denies easy bleeding or easy bruising EXAM Physical Exam Const Vital Signs: 06/05/23 04:33 Temperature 98.9 F Temperature Source Oral Pulse Rate 84 Respiratory Rate 18 Blood Pressure 146/103 H Blood Pressure Mean 117 Pulse Ox 96 Oxygen Delivery Method Room Air Positive well nourished, well developed and obese General Appearance ED: well developed Nutritional Appearance: obese HEENT HEENT Narrative: Normocephalic atraumatic Eyes PERRL and EOMs intact bilaterally Neck full ROM and supple Neck Narrative: No bony deformity or step-off of the cervical spine no midline pain on palpation Negative Spurling sign bilaterally Chest Wall palpation of chest normal Chest Narrative: No bony deformity or crepitus noted Resp normal respiratory effort and clear to auscultation bilaterally Cardio regular rate and regular rhythm Cardio Narrative: Radial and carotid pulses are equal and symmetric GI non-tender, non-distended and no masses Auscultation: normoactive bowel sounds Palpation: soft Extremity normal to inspection and full ROM Extremity Narrative: Bilateral upper extremities are neurovascularly intact; AIN/PIN are intact and normal. Compartments are soft and compressible going against compartment syndrome. No asymmetric edema noted going against upper extremity DVT. Capillary refill is less than 3 seconds bilaterally. No overlying soft tissue changes to suggest trauma or infection Neuro oriented x3, CN's II-XII intact bilaterally, moves all extremities and no focal motor deficits Sensorium / Orientation: alert Psych Psych Narrative: Patient has a nervous/anxious affect Skin no rashes or lesions noted MDM MDM MDM Narrative Medical decision making narrative: Patient arrived to the ER mildly hypertensive but otherwise with stable vitals. She reported that symptoms began in her right arm after being splashed by some unknown fluid. On exam there are no soft tissue skin discoloration to suggest a chemical reaction or trauma. Compartments are soft going against compartment syndrome. She does not have physical exam findings consistent with an upper extremity DVT and as radial pulses are equal and this goes against arterial occlusion. Patient reported that her main concern was the progression of symptoms into her chest as this could be cardiac in nature. Therefore basic blood work was obtained which shows a normal troponin at 3. This value coupled with a normal EKG goes against acute coronary syndrome. As there is possibility this could be lung related as well a chest x-ray was obtained but did not show widening of the mediastinum or lung pathology such as pneumonia or pneumothorax. Also as patient reported feeling coolness I did elect to perform a lactic acid to confirm that there was no signs of ischemia that correlated with my physical exam. Lactic acid value was normal. Therefore at this time as chest x-ray shows no acute lung pathology physical exam does not suggest compartment syndrome upper extremity DVT arterial occlusion or ischemia and EKG and laboratory studies indicate there is no acute coronary syndrome patient is otherwise safe for discharge History & Record Review Discussion w/independent historian: Patient Lab Data Attestation: I reviewed the patient's lab results. Labs: Laboratory Results - last 24 hr 06/05/23 05:27 WBC 10.1 RBC 4.48 Hgb 12.3 Hct 38.1 MCV 85.0 MCH 27.5 MCHC 32.3 RDW Std Deviation 43.1 RDW Coeff of Silke 13.9 Plt Count 243 MPV 10.2 Immature Gran % (Auto) 0.300 Neut % (Auto) 64.4 Lymph % (Auto) 29.9 [place] % (Auto) 4.8 Eos % (Auto) 0.1 Baso % (Auto) 0.5 Absolute Neuts (auto) 6.5 Absolute Lymphs (auto) 3.02 Nucleated RBC % 0 Sodium 136 Potassium 5.0 Chloride 110 H Carbon Dioxide 22.0 Anion Gap 4 L BUN 3 L Creatinine 0.71 Estim Creat Clear Calc 96.41 Est GFR (MDRD) Af Amer 120 Est GFR (MDRD) Non-Af 99 BUN/Creatinine Ratio 4.2 L Glucose 96 Calcium 8.3 L Magnesium 2.0 Troponin I High Sens 3 Radiography Diagnostic Testin view chest x-ray as interpreted by the emergency medicine physician reveals no acute infiltrate pneumothorax pleural effusion or widening of the mediastinum Discharge Plan Triage Chief Complaint: Upper Extremity Injury ED Provider: Major Mejia Dx/Rx/DC Orders Clinical Impression: Nonspecific chest pain, Pain of right upper extremity Instructions: ED Chest Pain, Uncertain Cause Prescriptions: No Action haloperidol 5 MG tablet 5 mg PO PRN PRN (Reason: Anxiety) dronabinol [Marinol] 5 MG capsule 5 mg PO BID sertraline 100 MG tablet 150 mg PO DAILY metronidazole 500 MG tablet 500 mg PO Q8H Qty: 30 0RF promethazine [Promethegan] 25 mg suppository 25 mg RECTAL Q6H PRN PRN (Reason: Nausea) Qty: 10 0RF promethazine 25 mg tablet 25 mg PO Q6H PRN (Reason: nausea and vomiting) Qty: 10 0RF dicyclomine 20 mg tablet 20 mg PO TID Qty: 30 0RF promethazine [promethazine] 25 mg tablet 25 mg PO Q6H PRN PRN (Reason: Nausea) Qty: 20 0RF ondansetron [ondansetron] 4 mg tablet,disintegrating 4 mg PO Q8H PRN PRN (Reason: Nausea) Qty: 10 0RF dicyclomine 10 mg capsule 20 mg PO TIDAC Qty: 20 0RF potassium chloride 20 mEq tablet extended release 20 meq PO BID Qty: 14 0RF dicyclomine 20 mg tablet 20 mg PO TID Qty: 14 0RF promethazine 25 mg tablet 25 mg PO TID PRN (Reason: nausea and vomiting) Qty: 14 0RF amoxicillin-pot clavulanate 875-125 mg tablet 1 tab PO BID Qty: 20 0RF Primary Care Provider: Medical Maddie Gambino Referrals: [facility] Maddie Gambino [Primary Care Provider] - Disposition Disposition: Home, Self Care
[2023-06-05 06:31] LABS: Lactic Acid 0.4 mmol/L (0.4-1.9)
[2023-06-05 07:10] VITALS: BP 150/90; PULSE 50; RESP 16; O2SAT 100
== END 2023-06-05 07:12 | disposition home or self-care (01) ==
PROVIDERS: Emergency Provider Emergency Medicine; Visit Provider Emergency Medicine
DX: R07.9 Chest pain, unspecified (principal); Z68.42 Body mass index [BMI] 45.0-49.9, adult; E66.9 Obesity, unspecified; M79.601 Pain in right arm; F17.210 Nicotine dependence, cigarettes, uncomplicated
CPT/HCPCS: 71046; 80048; 83605; 83735; 84484; 85025; 93005; 99284; A4216

== ENCOUNTER 2023-06-19 12:46 | Outpatient (RCR) | payer OTHER, MEDICAID, SELFPAY ==
--- NOTE | 2023-06-19 13:42 | HP.PTEVAL_ITS ---
Patient's Visit Information Visit Information Visit Information: JULIANA TINSLEY is a 32 year old F referred to Physical Therapy by ECHO Miller with a diagnosis of Right Arm Pain. Date of Evaluation: 06/19/23 Physical Therapist: Afshan Redd DPT Visit Plan Frequency: 2-3x /Week Duration: 4 Weeks Plan: Focus on UE ROM, scapular strength/stabilization- lifting mechanics HEP Given IE: Posture, importance of movement, Upper trap stretching, table walk aways flexion and pendulums Subjective Subjective: 2 weeks ago- She was lifting a bag of trash in one of the labs at the [employer]- she was splashed with something on her arm- 5 min later her arm felt like it was swelling shooting pains and into her neck- and chest- coldness-Right side- [employer] told her not to say it happened at work- then got a second opinion- they told her it could be vascular still syndrome- BP was skyhigh- they were unsure as to why it was high- she has massive pain- and is now having to use her left arm. She has been off work since the accident. Currently her pain is right below the elbow and it radites up to the arm to the shoulder and into the neck to the base of the skull. Worst in the last 48 hours: Agg: movement, lifting, work. Eases: hot baths but nothing really else helps Best: . Does report N/T in her hands. Reports the pain in her arm is more of a deep internal pain, it does not feel like a pulled muscle. She is suppose to get an EMG but is not able to get one until August. She does report having blurred vision, dizziness. She does report some deadness feeling her right leg when she gets up. 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- Sleep: not able to get comfortable- unable to sleep at all- in her bed. She normally walks 4-8 miles- she is still walking some but not near that. Righ t Hand dominate. PMHx/Meds: see list in chart Objective Objective: Posture: FH, RS- can correct with verbal cues but does not maintain Gait: good arm swing and trunk rotation- slow giancarlo Palpation: tender to light touch throughout cervical paraspinals-medial border of the scapula. upper trap, biciptal groove, bicep, tricep, and forearm Sensation: increased to light touch throughout UE ROM: AROM: Cervical: WNL reports pain, Shoulder: Flexion: 90 degrees with pain, Abd: 90 degrees with pain, ER: 60 degrees with pain IR: to belt line with pain, Elbow/Wrist/hand: WNL, AAROM: WFL in all planes but reports pain with flexion and abduction. Strength: Isometric shoulder: 3+/5 at neutral position, Elbow: 3+/5, Wrist: 4- /5, Anesthesiologist Assistant: Left: 10/40 Right: 5/10 Unable to perform special tests due to pain: will gather more data as pt pain improves. Balance/Special Test Scores Quick DASH Score: 86.3625 Goals Goal 1:: Patient will be I with HEP and progression Goal Time Frame: 4-6 Weeks Goal 2:: Patient will maintain proper posture t/o tx session to demo increased scap s/s Goal Time Frame: 4-6 Weeks Goal 3:: Patient will demo full AROM of the right arm Goal Time Frame: 4-6 Weeks Goal 4:: Patient will report 80% improvement Goal Time Frame: 4-6 Weeks Rehabilitation Potential Physical Therapy Diagnosis: Patient presents with hypomobility- she has decreased UE painfree ROM, UE and scapular strength/stabilization and muscular endurance leading to poor posture and increased pain with ADL's. Rehabilitation Potential: Fair Anticipated Interventions Patient/Client Instruction: Educate patient on: Benefits of Fitness Program Therapeutic Exercise to Include: Strength training, Endurance training, Balance training, Coordination, Agility training, Body mechanics, Postural training, Flexibilty training, Neuromotor development, Passive ROM, Active ROM, Dynamic Lumbar Stabilization and Scapular Strength/Stabilization For the Purpose of:: To improve muscle performance and motor function TENS: Yes Cryotherapy (ice pack, ice massage): Yes Thermo therapy (hot pack): Yes Ultrasound (thermal/non thermal): Yes For the Purpose of:: To decrease pain Text: Thank you for the opportunity to evaluate your patient. For Medicare and Medicare HMO plans, please review the plan of care and approve it. It will need to be FAXED BACK to us at [phone] for Medicare purposes. For Medicare only, by signing this I certify the plan of care. Please let me know if there are questions or concerns regarding this plan of care. Physician Signature: Date:
--- NOTE | 2023-11-01 09:09 | HP.PT.NRP ---
Patient Information Patient Information: JULIANA TINSLEY was seen in my office for initial evaluation on 06/19/23. The following Plan of Care was established for this patient: POC Established Initial Frequency: 2-3x /Week Initial Duration: 4 Weeks Anticipated Interventions Patient/Client Instruction: Educate patient on: Benefits of Fitness Program Therapeutic Exercise to Include: Strength training, Endurance training, Balance training, Coordination, Agility training, Body mechanics, Postural training, Flexibilty training, Neuromotor development, Passive ROM, Active ROM, Dynamic Lumbar Stabilization and Scapular Strength/Stabilization For the Purpose of:: To improve muscle performance and motor function TENS: Yes Cryotherapy (ice pack, ice massage): Yes Thermo therapy (hot pack): Yes Ultrasound (thermal/non thermal): Yes For the Purpose of:: To decrease pain Last Seen Last Seen: This patient was last seen in our office . Pertinent comments regarding their Physical therapy will appear below: Patient has not attended physical therapy since initial evaluation and is appropriate to be discharged At this point I will be discontinuing this patient from physical therapy. I would be happy to see this patient again in the future if found appropriate by the physician. Thank you! Afshan Redd, EVELYNE Balance/Gait/Functional tests Balance/Special Test Scores Quick DASH Score: [phone]
== END 2023-06-19 19:00 | disposition home or self-care (01) ==
LOC: PT 12:46
PROVIDERS: Referring Provider Nurse Practitioner Family; Visit Provider Nurse Practitioner Family
DX: M79.601 Pain in right arm (principal)
CPT/HCPCS: 97110; 97162

== ENCOUNTER 2023-09-05 03:50 | Emergency (ER) | payer BC, OTHER, MEDICAID, SELFPAY ==
[2023-09-05 03:56] VITALS: BP 139/84; PULSE 80; RESP 18; TEMP 36.7; O2SAT 98; BMI 49.7
--- NOTE | 2023-09-05 04:11 | CT_ITS ---
EXAM: CT ABDOMEN AND PELVIS WITH INTRAVENOUS CONTRAST CLINICAL INDICATION: abd pain. Crohns hx TECHNIQUE: Helically acquired images were obtained of the abdomen and pelvis with intravenous contrast. This CT exam was performed using one or more of the following dose reduction techniques: automated exposure control, adjustment of the mA and/or kV according to patient size, and/or use of iterative reconstruction technique. CONTRAST: IV 100mL [id number] RADIATION DOSE: CTDIvol = 28.71 mGy, DLP = 1218.65 mGy-cm COMPARISON: CT abdomen and pelvis 01/21/2023 FINDINGS: LOWER THORAX: Unremarkable. Lung bases are clear. No cardiomegaly. No significant pericardial effusion. ABDOMEN: LIVER: Unremarkable. Homogeneous. No focal mass. GALLBLADDER AND BILE DUCTS: The gallbladder is not identified and may be contracted or surgically absent. No intra- or extrahepatic biliary ductal dilation. PANCREAS: Unremarkable. No focal cystic or solid mass. SPLEEN: Unremarkable. Normal size without focal cystic or solid mass. ADRENALS: Unremarkable. No nodules. KIDNEYS AND URETERS: Unremarkable. Normal renal size and position. No hydronephrosis. STOMACH AND BOWEL: Unremarkable. No stomach or bowel distention. No focal inflammatory change. PELVIS: APPENDIX: The appendix is normal. BLADDER: Unremarkable. REPRODUCTIVE: Unremarkable as visualized. No mass. ABDOMEN and PELVIS: INTRAPERITONEAL SPACE: Unremarkable. No ascites or other fluid collection. No free air. BONES/JOINTS: Unremarkable. No suspicious lytic or blastic abnormality. SOFT TISSUES: Unremarkable. No discrete abdominal or pelvic wall hernia. VASCULATURE: Unremarkable. Abdominal aorta is non-dilated. LYMPH NODES: Unremarkable. No enlarged lymph nodes. CT/Abdomen/Pelvis W IV Cont ONLY IMPRESSION: No acute findings in the abdomen or pelvis. Electronically Signed: Grover Frank MD at 5:31 EDT ,
--- NOTE | 2023-09-05 04:13 | EDS_ITS ---
HPI HPI - GI History of Present Illness Chief Complaint: Abd Pain Detail of Chief Complaint: Abdominal pain with diffuse diarrhea with a history of Crohn's Informant: patient Abdominal Pain/Flank Pain Onset: Days Context: Gradual Onset Timing: Intermittent Quality: Cramping Location: Diffuse Current Severity: Mild Maximum Severity: Mild Worsened by: Nothing Relieved by: Nothing Nausea/Vomiting/Emesis GI Symptom: Positive for Nausea; Negative for Vomiting Onset: Days Severity: Moderate Diarrhea/Melena/Hematochezia GI Symptom: Positive for Diarrhea; Negative for Melena or Hematochezia Onset: Days Stool Quality: Positive for Watery Severity: Severe Associated Symptoms Associated Symptoms: Negative for Dysuria, Frequency, Hematuria or Urgency Narrative Narrative: 32-year-old female history of Crohn's disease since 6 years old. She has had prior partial small and large bowel resection. Also cholecystectomy. She has had C. difficile diarrhea multiple times in the past. Prior GI bleed. Prior small bowel obstruction. States she has not felt well for about a week. She just feels generally weak. She has had worsening diarrhea to the point where she is concerned she may have C. difficile. Greater than 10 watery bowel movements per day in the last several days. She is drinking p.o. fluids. Is nauseated but denies vomiting. Denies fever. Denies any dysuria. Prior similar symptoms: Yes Recent Illness/Hospitalization: No PFSH [facility] Medical History Crohn's disease Home Medications cyclobenzaprine 5 mg tablet 5 mg PO Q8H PRN muscle spasm 09/05/23 [History Last Taken Unknown] diazepam 10 mg tablet 10 mg PO Q8H PRN muscle spasm 09/05/23 [History Last Taken Unknown] doxepin 50 mg capsule 50 mg PO DAILY 09/05/23 [History Last Taken Unknown] doxepin 6 mg tablet 6 mg PO DAILY 09/05/23 [History Last Taken Unknown] modafinil 200 mg tablet 200 mg PO DAILY 09/05/23 [History Last Taken Unknown] Allergy/AdvReac Type Severity Reaction Status Date / Time benzocaine [From Cetacaine] Allergy Anaphylaxis Verified 09/05/23 03:51 butamben [From Cetacaine] Allergy Anaphylaxis Verified 09/05/23 03:51 methylprednisolone sodium Allergy Anaphylaxis Verified 09/05/23 03:51 succinate [From Solu-Medrol] tetracaine [From Cetacaine] Allergy Anaphylaxis Verified 09/05/23 03:51 midazolam HCl [From Versed] AdvReac Other Verified 09/05/23 03:51 Social History Smoking Status: Current some day smoker tobacco type: cigarettes ROS ROS ED ROS Narrative Nausea, watery diarrhea, generalized weakness. Abdominal pain. Review of Systems ROS Unobtainable: Denies due to encephalopathy Constitutional Constitutional ED: Denies chills or fever(s) ENT ENT ED: Denies ear pain Cardiovascular Cardiovascular: Denies chest pain Respiratory/Chest Respiratory/Chest: Denies cough or dyspnea Gastrointestinal Gastrointestinal: Reports abdominal pain, diarrhea and nausea; Denies constipation, melena or vomiting Genitourinary Genitourinary ED: Denies dysuria or hematuria Musculoskeletal Musculoskeletal: Denies arthralgias Integumentary Denies abscess Neurologic Neurologic: Denies headache(s) Psychiatric Psychiatric: Denies anxiety Endocrine Endocrinology: Denies polydipsia Hematologic/Lymphatic Hematologic/Lymphatic: Denies easy bleeding Allergic/Immunologic Allergic/Immunologic ED: Denies mouth swelling or tongue swelling EXAM Physical Exam Narrative Exam Narrative: 31-year-old female vital signs stable afebrile. She does not look septic or toxic. Does look mildly dehydrated. HEENT exam unremarkable except for dry mucous membranes. Neck nontender no lymphadenopathy. Lungs clear to auscultation bilaterally. Heart regular rhythm rate about 80 no murmur. Abdomen soft nondistended normal bowel sounds no peritoneal signs. Diffusely just mildly tender. Moves all 4 extremities. Calves are nontender that edema or cords. Neurologically she is awake alert with no focal motor deficits. Const Vital Signs: 09/05/23 03:56 09/05/23 05:50 Temperature 98.1 F Temperature Source Oral Pulse Rate 80 Respiratory Rate 18 18 Blood Pressure 139/84 H Blood Pressure Mean 102 Pulse Ox 98 98 Oxygen Delivery Method Room Air Room Air Positive well nourished and well developed; Negative for cachectic, contractures or unkempt General Appearance ED: well developed; Negative for unkempt, cachectic, contractures or pallor Nutritional Appearance: Negative for cachectic HEENT Reports dry mucous membranes; Denies moist mucous membranes normocephalic and atraumatic; Negative for trauma or tenderness Mouth ED: Yes dry mucous membranes Mouth: dry mucous membranes Eyes PERRL and EOMs intact bilaterally General Eye ED: Negative for pale conjunctiva or scleral icterus Neck no lymphadenopathy, supple and no JVD General: Negative for tenderness Carotids: Negative for other Lymph Lymphatic: Negative for other Resp normal respiratory effort and clear to auscultation bilaterally Effort and Inspection: Negative for respiratory distress Auscultation: Negative for rales, rhonchi or wheezes Cardio regular rate, regular rhythm, S1 normal heart sound, S2 normal heart sound and no murmurs Rate: Negative for bradycardia or tachycardic Rhythm: Negative for abnormal rhythm GI non-distended and no masses; Negative for non-tender Inspection: Negative for abdominal distention Auscultation: normoactive bowel sounds Palpation: soft and tender; Negative for guarding, rigid, hepatomegaly, splenomegaly, hernia, mass, pulsatile mass or rebound tenderness present Back/Spine no CVA tenderness General Back: Negative for CVA tenderness Cervical Spine: Negative for cervical spine tenderness Thoracic Spine / Upper Back: Negative for thoracic spinal tenderness Lumbar Spine / Lower Back: Negative for lumbar spinal tenderness Coccyx: Negative for other Extremity full ROM General Extremety ED: Negative for edema or tenderness General Extremity: Negative for edema Neuro CN's II-XII intact bilaterally and moves all extremities Sensorium / Orientation: alert, oriented to person, oriented to place and oriented to time; Negative for orientation impaired, confused or lethargic Motor Exam: strength 5/5 throughout Psych mental status grossly normal and thought process normal Appearance: Negative for unkempt Attitude: No agitated Mood & Affect: Negative for depressed, anxious or tearful Skin no wounds General Skin Exam: Negative for jaundice or pallor Lesions: no lesions Rashes: no rashes Trauma: Negative for abrasion Nails: Negative for discolored MDM MDM MDM Narrative Medical decision making narrative: 32-year-old female history of Crohn's disease with watery diarrhea. Clinically looks dehydrated. Prior history of C. difficile. No recent hospitalizations or recent antibiotics. No recent Crohn's medications. Screening labs and CAT scan to be obtained. She will be given morphine for pain and wanted an IM injection of Phenergan for her nausea. States Zofran does not work for her. Liter normal saline for dehydration. Differential would include Crohn's flare versus C. difficile versus dehydration and electrolyte abnormalities versus other etiologies. Repeat exam at 6:27 AM patient doing well. We went over her test results. Negative CAT scan. She will be discharged to home. Follow-up with her primary care provider if she has continued diarrhea she can give them a stool sample. She has had no diarrhea or bowel movements while in the emergency department. History & Record Review Discussion w/independent historian: Patient Additional record(s) reviewed:: Prior inpatient record, Prior outpatient record, Prior ED visit and Prior labs Lab Data Attestation: I reviewed the patient's lab results. Lab results narrative: CBC unremarkable. White count 8.7. H&H 12.7 and 40. Platelets 296. Chemistries show a gap of 5 normal BUN and creatinine 9 and 0.8. Glucose 102. Liver enzymes normal. Lipase normal at 22. Serum test negative. Urinalysis is negative. CAT scan is unremarkable. Labs: Laboratory Results - last 24 hr 09/05/23 09/05/23 04:40 05:50 WBC 8.7 RBC 4.61 Hgb 12.7 Hct 40.4 MCV 87.6 MCH 27.5 MCHC 31.4 L RDW Std Deviation 42.2 RDW Coeff of Silke 13.2 Plt Count 296 MPV 9.6 Immature Gran % (Auto) 0.300 Neut % (Auto) 58.4 Lymph % (Auto) 34.9 Emery % (Auto) 5.7 Eos % (Auto) 0.0 Baso % (Auto) 0.7 Absolute Neuts (auto) 5.1 Absolute Lymphs (auto) 3.03 Nucleated RBC % 0 Sodium 138 Potassium 3.8 Chloride 109 H Carbon Dioxide 24.0 Anion Gap 5 BUN 9 Creatinine 0.86 Estim Creat Clear Calc 79.59 Est GFR (MDRD) Af Amer 96 Est GFR (MDRD) Non-Af 80 BUN/Creatinine Ratio 10.4 Glucose 102 Calcium 9.0 Total Bilirubin 0.60 AST 15 ALT 21 Alkaline Phosphatase 77 Total Protein 7.7 Albumin 3.5 Globulin 4.2 Albumin/Globulin Ratio 0.8 L Lipase 22 Serum , Qual NEGATIVE Urine Color Yellow Urine Clarity Clear Urine pH 6.0 Ur Specific [place] 1.010 Urine Protein 15 H Urine Glucose (UA) Normal Urine Ketones Negative Urine Occult Blood Negative Urine Nitrite Negative Urine Bilirubin Negative Urine Urobilinogen Normal Ur Leukocyte Esterase 25 H Urine RBC 0 SEEN Urine WBC 0-5 SEEN Ur Squamous Epith Cells 0-5 SEEN Ur Transition Epith Cell 0-5 SEEN Urine Bacteria 0 SEEN Urine Mucus 0 SEEN Radiography Diagnostic Testing: Clinical Impression(s) from Imaging Studies Abdomen/Pelvis CT 09/05/23 04:11 IMPRESSION: No acute findings in the abdomen or pelvis. Electronically Signed: Grover Frank MD at 5:31 EDT Reading Location ID and State: [facility] / [place] Tel , Service support , Discharge Plan Triage Chief Complaint: Abd Pain ED Provider: Agustín Estrada Dx/Rx/DC Orders Clinical Impression: Hx of Crohn's disease, Generalized weakness, Diarrhea Instructions: ED Diarrhea, Unknown Cause Prescriptions: No Action diazepam 10 mg tablet 10 mg PO Q8H PRN (Reason: muscle spasm) modafinil 200 mg tablet 200 mg PO DAILY doxepin 50 mg capsule 50 mg PO DAILY doxepin 6 mg tablet 6 mg PO DAILY cyclobenzaprine 5 mg tablet 5 mg PO Q8H PRN (Reason: muscle spasm) Primary Care Provider: [facility] Madd[facility] Gamb[facility] - 3-5 Days if not improving Activity Restrictions/Additional Instructions: Plenty of fluids and rest. Follow-up with your primary care provider. If still having diarrhea you should get a stool culture for C. difficile. Light duty at work. Disposition Disposition: Home, Self Care
[2023-09-05] MEDS: 0.9% Normal Saline (1000mL) 1,000 ML 1000 ML IV (04:20)
[2023-09-05] MEDS: proMETHazine 25 MG/ML Syringe 12.5 MG IM (04:20)
[2023-09-05] MEDS: morphine 8 MG/ML Syringe IV (04:20)
[2023-09-05 04:43] LABS: Absolute Lymphocyte Count 3.03 X10^3/uL (0.83-4.51); Absolute Neutrophil Count 5.1 X10^3/uL (2.0-7.7); Basophil# 0.06 X10^3/uL; Basophil% 0.7 % (0-1); Hematocrit 40.4 % (37-47); Hemoglobin 12.7 g/dL (12.0-15.0); Lymphocyte # 3.03 X10^3/ul (0.83-4.51); Lymphocyte % 34.9 % (19-41); Mean Corp Hgb Conc 31.4 g/dL (32-36); Mean Corpuscular Hgb 27.5 pg (27.0-32.0); Mean Corpuscular Volume 87.6 fL (81-99); Mean Platelet Vol. 9.6 fl (6.2-12.0); Monocyte# 0.49 X10^3/uL; Monocyte% 5.7 % (0-10); NRBC Flagged by Analyzer 0 % (0-5); Neutrophil # 5.06 X10^3/uL (2.7-7.7); Neutrophil % 58.4 % (47-70); Platelet Count 296 K/mm3 (150-450); RBC Distribution Width CV 13.2 % (11.6-14.6); RBC Distribution Width SD 42.2 fl (35.1-43.9); Red Blood Count 4.61 M/mm3 (4.2-5.4); White Blood Count 8.7 K/mm3 (4.4-11.0)
[2023-09-05 04:58] LABS: Internal QC Validated? YES +Cl - CLEAR BKGD
[2023-09-05 04:59] LABS: Pregnancy, Serum, hCG Quali. NEGATIVE Negative
[2023-09-05 05:00] LABS: ALB/GLOB Ratio 0.8 RATIO (0.9-2.4); AST(SGOT) 15 U/L (15-37); Alanine Aminotransfer ALT/SGPT 21 U/L (13-56); Albumin, Serum 3.5 g/dL (3.2-5.0); Alkaline Phosphatase 77 U/L (45-117); Anion Gap 5 (5-15); BUN 9 mg/dL (7-18); BUN/Creat Ratio 10.4 RATIO (10-20); Chloride 109 mmol/L (98-107); Creatinine, Serum 0.86 mg/dL (0.55-1.02); EST Glomerular Filtration Rate 80 mL/min (>60); Est Glom Filt Rate - Afr Amer 96 mL/min (>60); Estimated Creatinine Clearance 79.59 ml/min; Globulin 4.2 g/dL (2.2-4.2); Glucose 102 mg/dL (74-106); Lipase 22 U/L (13-75); Potassium 3.8 mmol/L (3.5-5.1); Protein, Total 7.7 g/dL (6.4-8.2); Sodium Level 138 mmol/L (136-145)
[2023-09-05 05:50] VITALS: RESP 18; O2SAT 98
[2023-09-05] MEDS: Metoclopramide 10 MG/2 ML Vial 5 MG IV (05:58)
[2023-09-05] MEDS: morphine 8 MG/ML Syringe 6 MG IV (05:59)
[2023-09-05 06:01] LABS: Bacteria 0 SEEN /hpf (None Seen); Color, Urine Yellow (Yellow); Glucose, Dipstick Normal (Normal); Ketone-Dipstick Negative (Negative); Leukocyte Esterase-Dipstick 25 /ul (Negative); Mucous, Urine 0 SEEN /hpf (<or=2+); Nitrite-Dipstick Negative (Negative); Occult Blood-Urine Negative /ul (Negative); Protein-Dipstick 15 mg/dl (Negative); Red Blood Cells-Urine 0 SEEN /hpf (0-5); Urine Bilirubin Dipstick Negative (Negative); Urine Clarity Clear (Clear); Urine Urobilinogen Normal (Normal)
[2023-09-05 06:29] LABS: Squamous Epithelial Cells - UA 0-5 SEEN /hpf (5-10); Transitional Epithelial - Ur 0-5 SEEN /hpf (0-5); White Blood Cells 0-5 SEEN /hpf (0-5)
[2023-09-05 07:00] VITALS: BP 145/88
== END 2023-09-05 07:08 | disposition home or self-care (01) ==
PROVIDERS: Emergency Provider Emergency Medicine; Visit Provider Emergency Medicine
DX: K50.90 Crohn's disease, unspecified, without complications (principal); R53.1 Weakness; R19.7 Diarrhea, unspecified; F17.210 Nicotine dependence, cigarettes, uncomplicated
CPT/HCPCS: 36415; 74177; 80053; 81001; 83690; 84703; 85025; 96361; 96374; 96375; 96376; 99282; J7030; Q9967; A4216

== ENCOUNTER 2023-10-25 14:57 | Emergency (ER) | payer BC, MEDICAID, SELFPAY ==
[2023-10-25 14:57] VITALS: BP 147/85; PULSE 81; RESP 16; TEMP 36.5; O2SAT 100; BMI 50.0
--- NOTE | 2023-10-25 16:18 | ED.VIS.GI ---
HPI HPI - GI History of Present Illness Chief Complaint: Nausea/Vomiting Narrative Narrative: 32-year-old female presenting with constipation. She states has been constipated since Sunday. She is a long history of Crohn's disease since she was 6 years old. She states that she had a partial colectomy and another surgery on her bowel distantly as a child. Patient states she used to live in [place] but when to her who was in the she lived in [place]. She got her care from for the . Apparently she has seen somebody at [facility] in the past in [place]. She recently moved back to [place] due to what she reports is of relationship. She states he does not have health insurance that she is currently going to [place] and has been managing her care for last few months. She is not referred to GI recently. She did states he has not had a Crohn's flare in years. She has not been on any biologic in years. Patient states she is also not been on any prednisone for a long time. Denies any black or bloody stools. She is vomiting. She reports history of bowel obstructions in the past. [facility] Medical History Crohn's disease Home Medications cyclobenzaprine 5 mg tablet 5 mg PO Q8H PRN muscle spasm 09/05/23 [History Last Taken Unknown] diazepam 10 mg tablet 10 mg PO Q8H PRN muscle spasm 09/05/23 [History Last Taken Unknown] doxepin 50 mg capsule 50 mg PO DAILY 09/05/23 [History Last Taken Unknown] doxepin 6 mg tablet 6 mg PO DAILY 09/05/23 [History Last Taken Unknown] modafinil 200 mg tablet 200 mg PO DAILY 09/05/23 [History Last Taken Unknown] promethazine 25 mg tablet 25 mg PO TID PRN nausea and vomiting #14 tabs 10/25/23 [Rx Last Taken Unknown] Allergy/AdvReac Type Severity Reaction Status Date / Time benzocaine [From Cetacaine] Allergy Anaphylaxis Verified 10/25/23 15:00 butamben [From Cetacaine] Allergy Anaphylaxis Verified 10/25/23 15:00 methylprednisolone sodium Allergy Anaphylaxis Verified 10/25/23 15:00 succinate [From Solu-Medrol] tetracaine [From Cetacaine] Allergy Anaphylaxis Verified 10/25/23 15:00 midazolam HCl [From Versed] AdvReac Other Verified 10/25/23 15:00 Social History Smoking Status: Current some day smoker tobacco type: cigarettes ROS ROS ED Constitutional Constitutional ED: Denies chills, fever(s) or sweats Eyes Eyes: Denies blurry vision or change in vision ENT ENT ED: Denies ear pain or sore throat Cardiovascular Cardiovascular: Denies chest pain, palpitations or racing heartbeat Respiratory/Chest Respiratory/Chest: Denies cough, dyspnea or sputum Gastrointestinal Gastrointestinal: Reports abdominal pain, nausea and vomiting; Denies constipation or diarrhea Genitourinary Genitourinary ED: Denies dysuria, hematuria or urinary frequency Musculoskeletal Musculoskeletal: Denies arthralgias, myalgias or neck pain Integumentary Denies abscess, Abrasions or rash Neurologic Neurologic: Denies headache(s), paresthesias or weakness Psychiatric Psychiatric: Denies anxiety, depression, suicidal ideation or suicidal thoughts Endocrine Endocrinology: Denies polydipsia or polyuria EXAM Physical Exam Const Vital Signs: 10/25/23 14:57 Temperature 97.7 F L Temperature Source Temporal Pulse Rate 81 Respiratory Rate 16 Blood Pressure 147/85 H Blood Pressure Mean 105 Pulse Ox 100 Oxygen Delivery Method Room Air Positive well nourished General Appearance ED: NAD; Negative for pallor HEENT Reports moist mucous membranes normocephalic and atraumatic Eyes PERRL and EOMs intact bilaterally Neck no lymphadenopathy Resp normal respiratory effort Auscultation: Negative for rales, rhonchi or wheezes Cardio regular rate and regular rhythm GI Palpation: soft; Negative for guarding, rigid, hepatomegaly, splenomegaly or hernia Extremity full ROM Neuro CN's II-XII intact bilaterally, moves all extremities and no sensory deficits noted Sensorium / Orientation: alert Motor Exam: strength 5/5 throughout Psych mental status grossly normal and thought process normal Skin no wounds General Skin Exam: Negative for jaundice or pallor MDM MDM MDM Narrative Medical decision making narrative: 2-year-old female with history of Crohn's disease complaining of constipation. No fevers or chills. She does report nausea and vomiting. Last bowel movement was 4 days ago. Patient does report history of obstruction. Patient not concern for . Patient presenting with right flank pain. Differential includes colitis, diverticulitis, gastritis, pancreatitis, constipation, UTI, pyelonephritis, renal calculi, ureteral calculi, bowel obstruction, malignancy, dehydration, electrolyte abnormalities, , ectopic , ovarian cyst, ovarian torsion. She will be obtained to assess for white blood cell count, hemoglobin, platelets. CMP to assess liver function, renal function, electrolytes, glucose. Lipase to assess for pancreatitis. Urinalysis to assess for UTI, hCG to assess for . Discussed with patient at length that we will try to avoid narcotic pain medication as she is constipated. We will start with Toradol and Phenergan as she states that Zofran does not work for her and that Reglan makes her shaky. We do not have any IM Phenergan due to it being on backorder but she did believe she could tolerate a p.o. Phenergan. She request some Benadryl as she states that this helps her with her symptoms. Will obtain CT of the abdomen pelvis with IV contrast. Also given a liter of normal saline. CT shows a normal white blood cell count 8.6. Hemoglobin stable at 13.1. Platelets normal at 257. Renal function electrolytes within normal limits. LFTs are normal. Is within normal limits. Urinalysis negative. AG negative. Patient was initially treated with Benadryl at her request. She is also given oral Phenergan because she cannot tolerate Zofran or Reglan. She has not had any vomiting. On reevaluation she states she still having some discomfort and request a second dose of Benadryl although she just received her Benadryl. CT of the abdomen pelvis does not show any evidence of a Crohn's flare obstruction, other acute finding. Patient counseled that there is minimal stool burden on her CT. She request some Phenergan for home. I recommended that she do stool softeners and laxatives as she still feels like she is clinically constipated. Discussed at length not using narcotic pain medication because she feels subjectively constipated and this would make her worse. We discussed possibly doing steroids but she does not want to take these because they make her not sleep. There is also no evidence that she is having a Crohn's flare so this would likely not be helpful. At this point the patient is discharged home in stable condition. Return precautions discussed. Impression: 1. Abdominal pain 2. Constipation 3. Nausea Lab Data Attestation: I reviewed the patient's lab results. Labs: Laboratory Results - last 24 hr 10/25/23 10/25/23 16:50 16:55 WBC 8.6 RBC 4.69 Hgb 13.1 Hct 40.8 MCV 87.0 MCH 27.9 MCHC 32.1 RDW Std Deviation 41.5 RDW Coeff of Silke 13.3 Plt Count 257 MPV 10.2 Immature Gran % (Auto) 0.200 Neut % (Auto) 53.6 Lymph % (Auto) 34.3 Saunders % (Auto) 6.5 Eos % (Auto) 4.8 Baso % (Auto) 0.6 Absolute Neuts (auto) 4.6 Absolute Lymphs (auto) 2.95 Nucleated RBC % 0 Sodium 141 Potassium 3.6 Chloride 108 H Carbon Dioxide 26.0 Anion Gap 7 BUN 6 L Creatinine 0.84 Estim Creat Clear Calc 81.49 Est GFR (MDRD) Af Amer 100 Est GFR (MDRD) Non-Af 82 BUN/Creatinine Ratio 7.2 L Glucose 119 H Calcium 9.4 Total Bilirubin 0.70 AST 14 L ALT 22 Alkaline Phosphatase 81 Total Protein 7.7 Albumin 3.7 Globulin 4.0 Albumin/Globulin Ratio 0.9 Lipase 22 Serum , Qual NEGATIVE Urine Color Yellow Urine Clarity Clear Urine pH 7.0 Ur Specific [place] 1.015 Urine Protein 15 H Urine Glucose (UA) Normal Urine Ketones Negative Urine Occult Blood Negative Urine Nitrite Negative Urine Bilirubin Negative Urine Urobilinogen Normal Ur Leukocyte Esterase Negative Urine RBC 0 SEEN Urine WBC 0-5 SEEN Ur Squamous Epith Cells 0-5 SEEN Urine Bacteria 0 SEEN Urine Mucus 0 SEEN Radiography Diagnostic Testing: Clinical Impression(s) from Imaging Studies Abdomen/Pelvis CT 10/25/23 17:48 IMPRESSION: No acute process within the abdomen or pelvis. Electronically Signed: Armida Villarreal MD at 19:01 EST , Discharge Plan Triage Chief Complaint: Nausea/Vomiting ED Provider: Garrett Brooks Dx/Rx/DC Orders Instructions: ED Constipation (Adult) Prescriptions: New promethazine 25 mg tablet 25 mg PO TID PRN (Reason: nausea and vomiting) Qty: 14 0RF No Action diazepam 10 mg tablet 10 mg PO Q8H PRN (Reason: muscle spasm) modafinil 200 mg tablet 200 mg PO DAILY doxepin 50 mg capsule 50 mg PO DAILY doxepin 6 mg tablet 6 mg PO DAILY cyclobenzaprine 5 mg tablet 5 mg PO Q8H PRN (Reason: muscle spasm) [facility] Referrals: [place],DO Juan Alberto [Med Staff - Active Staff] - 3-5 Days [facility] [place] Dennis [Primary Care Provider] - Disposition Disposition: Home, Self Care
[2023-10-25] MEDS: 0.9% Normal Saline (1000mL) 1,000 ML 1000 ML IV (16:58)
[2023-10-25] MEDS: DiphenhydrAMINE 50 MG/ML Syringe 25 MG IV (16:58)
[2023-10-25] MEDS: Ketorolac 15 MG/ML Vial IV (16:58)
[2023-10-25 17:01] LABS: Absolute Lymphocyte Count 2.95 X10^3/uL (0.83-4.51); Absolute Neutrophil Count 4.6 X10^3/uL (2.0-7.7); Basophil# 0.05 X10^3/uL; Basophil% 0.6 % (0-1); Eosinophil# 0.41 X10^3/uL; Eosinophils% 4.8 % (0-5); Hematocrit 40.8 % (37-47); Hemoglobin 13.1 g/dL (12.0-15.0); Lymphocyte # 2.95 X10^3/ul (0.83-4.51); Lymphocyte % 34.3 % (19-41); Mean Corp Hgb Conc 32.1 g/dL (32-36); Mean Corpuscular Hgb 27.9 pg (27.0-32.0); Mean Platelet Vol. 10.2 fl (6.2-12.0); Monocyte# 0.56 X10^3/uL; Monocyte% 6.5 % (0-10); NRBC Flagged by Analyzer 0 % (0-5); Neutrophil % 53.6 % (47-70); Platelet Count 257 K/mm3 (150-450); RBC Distribution Width CV 13.3 % (11.6-14.6); RBC Distribution Width SD 41.5 fl (35.1-43.9); Red Blood Count 4.69 M/mm3 (4.2-5.4); White Blood Count 8.6 K/mm3 (4.4-11.0)
[2023-10-25] MEDS: proMETHazine 25 MG Tablet PO (17:04)
[2023-10-25 17:06] LABS: Bacteria 0 SEEN /hpf (None Seen); Mucous, Urine 0 SEEN /hpf (<or=2+); Red Blood Cells-Urine 0 SEEN /hpf (0-5)
[2023-10-25 17:28] LABS: Color, Urine Yellow (Yellow); Glucose, Dipstick Normal (Normal); Ketone-Dipstick Negative (Negative); Leukocyte Esterase-Dipstick Negative /ul (Negative); Nitrite-Dipstick Negative (Negative); Occult Blood-Urine Negative /ul (Negative); Protein-Dipstick 15 mg/dl (Negative); Specific Gravity, Urine 1.015 (1.002-1.030); Urine Bilirubin Dipstick Negative (Negative); Urine Clarity Clear (Clear); Urine Urobilinogen Normal (Normal)
[2023-10-25 17:40] LABS: Squamous Epithelial Cells - UA 0-5 SEEN /hpf (5-10); White Blood Cells 0-5 SEEN /hpf (0-5)
[2023-10-25 17:46] LABS: ALB/GLOB Ratio 0.9 RATIO (0.9-2.4); AST(SGOT) 14 U/L (15-37); Alanine Aminotransfer ALT/SGPT 22 U/L (13-56); Albumin, Serum 3.7 g/dL (3.2-5.0); Alkaline Phosphatase 81 U/L (45-117); Anion Gap 7 (5-15); BUN 6 mg/dL (7-18); BUN/Creat Ratio 7.2 RATIO (10-20); Calcium,Total 9.4 mg/dL (8.5-10.1); Chloride 108 mmol/L (98-107); Creatinine, Serum 0.84 mg/dL (0.55-1.02); EST Glomerular Filtration Rate 82 mL/min (>60); Est Glom Filt Rate - Afr Amer 100 mL/min (>60); Estimated Creatinine Clearance 81.49 ml/min; Glucose 119 mg/dL (74-106); Lipase 22 U/L (13-75); Potassium 3.6 mmol/L (3.5-5.1); Protein, Total 7.7 g/dL (6.4-8.2); Sodium Level 141 mmol/L (136-145)
--- NOTE | 2023-10-25 17:48 | CT_ITS ---
STUDY: CT ABDOMEN AND PELVIS WITH CONTRAST REASON FOR EXAM: Female, 32 years old. abdominal pain RADIATION DOSAGE (If Supplied By Facility): CTDIvol = ( 17.07 ) mGy, DLP = ( 1288.62 ) mGycm TECHNIQUE: Transaxial images were obtained from the dome of the diaphragm to the symphysis pubis without oral contrast. IV 100mL Isovue-300 was administered. Sagittal and coronal images were reconstructed. Individualized dose optimization techniques were used for this CT. COMPARISON: 09/05/2023. FINDINGS: Mild bilateral lower lobe atelectasis. The visualized portions of the heart are within normal limits. Normal liver. There is non-visualization of the gallbladder, which may be secondary to either contraction or a prior cholecystectomy. Normal spleen. Normal pancreas. Normal bilateral adrenal glands. Normal right kidney. Normal left kidney. Normal visualized stomach. Normal small intestine. The descending colon is decompressed, otherwise unremarkable colon. The appendix is visualized and appears normal. Normal abdominal aorta. Normal inferior vena cava. Normal retroperitoneum. Normal urinary bladder. Anteverted uterus. Normal abdominal wall. Normal osseous structures. CT/Abdomen/Pelvis W IV Cont ONLY IMPRESSION: No acute process within the abdomen or pelvis. Electronically Signed: Armida Villarreal MD at 19:01 EST ,
[2023-10-25 17:52] LABS: Internal QC Validated? YES +Cl - CLEAR BKGD; Pregnancy, Serum, hCG Quali. NEGATIVE Negative
== END 2023-10-25 20:50 | disposition home or self-care (01) ==
PROVIDERS: Emergency Provider Student in an Organized Health Care Education/Training Program; Visit Provider Student in an Organized Health Care Education/Training Program
DX: K59.00 Constipation, unspecified (principal); F17.210 Nicotine dependence, cigarettes, uncomplicated; Z90.49 Acquired absence of other specified parts of digestive tract
CPT/HCPCS: 74177; 80053; 81001; 83690; 84703; 85025; 96361; 96374; 96375; 99282; J7030; Q9967; A4216

== ENCOUNTER 2023-11-17 02:50 | Emergency (ER) | payer BC, MEDICAID, SELFPAY ==
[2023-11-17 02:54] VITALS: BP 132/86; PULSE 88; RESP 16; TEMP 36.6; BMI 50.1
[2023-11-17 02:59] VITALS: BP 132/86; PULSE 77; RESP 16; TEMP 36.6
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
[2023-11-17 03:51] VITALS: O2SAT 98
[2023-11-17 04:02] LABS: Alcohol, Blood (Medical)-Serum < 3.0 mg/dL
[2023-11-17 04:06] LABS: AST(SGOT) 24 U/L (15-37); Alanine Aminotransfer ALT/SGPT 39 U/L (13-56); Albumin, Serum 3.9 g/dL (3.2-5.0); Alkaline Phosphatase 85 U/L (45-117); Anion Gap 6 (5-15); BUN 8 mg/dL (7-18); BUN/Creat Ratio 8.7 RATIO (10-20); Calcium,Total 9.6 mg/dL (8.5-10.1); Chloride 110 mmol/L (98-107); Creatinine, Serum 0.92 mg/dL (0.55-1.02); EST Glomerular Filtration Rate 74 mL/min (>60); Est Glom Filt Rate - Afr Amer 90 mL/min (>60); Estimated Creatinine Clearance 116.73 ml/min; Glucose 103 mg/dL (74-106); Lipase 26 U/L (13-75); Potassium 3.2 mmol/L (3.5-5.1); Protein, Total 7.9 g/dL (6.4-8.2); Sodium Level 141 mmol/L (136-145)
[2023-11-17 04:08] LABS: Internal QC Validated? YES +Cl - CLEAR BKGD; Pregnancy, Serum, hCG Quali. NEGATIVE Negative
[2023-11-17] MEDS: Morphine 4 MG/ML Syringe IV ×2 (04:36→05:30)
[2023-11-17] MEDS: Ondansetron 4 MG/2 ML Vial IV (04:36)
--- OUTSIDE RECORDS SUMMARY | 2023-11-17 04:37 | XMS RPT_ITS | CCD ---
Author Name Unknown Address [address] [place] [address] Organization [facility] Care Team Providers Care Care Companion Name Role Phone PHYSICIAN, NONE Primary Care Physician Unavailab maría CONSTANTINO MD, DR BORREGO Attending Unavailabl e PHYSICIAN, NONE Primary Care Unavailable NAYA GODFREY CNP Attending Unavaila ble PHYSICIAN, NONE Primary Care Unavailable Allergies Allergy Classification Reported Allergen(s) Allergy Type Date of Onset Reaction(s) Facility (1 source) methylPREDNISolon e; Translations: [methylprednisolo ne] Drug Allergy [facility] (1 source) Midazolam; Translations: [midazolam] Drug Allergy [facility] Medications Current Medications Medication Drug Class(es) Dates Sig (Normalized) Sig (Original) ketorolac tromethamine 10 mg oral tablet (1 source) Nonsteroidal Anti-inflammatory Drug, Cyclooxygenase Inhibitor Start: 09-06-2022 End: 09-09-2022 ketorolac 10 mg oral tablet Dose : 10 mg = 1 tab(s), Oral, QID, PRN as needed for pain, not to exceed 40 mg/day and 5 days duration for all dose forms, X 3 day(s), # 12 tab(s), 0 Refill(s), 09/09/22 18:34:00 EDT Start Date: 09/06/22 Stop Date: 09/09/22 Status: Ordered lidocaine 0.05 mg/mg medicated patch (1 source) Antiarrhythmic, Amide Local Anesthetic Start: 09-06-2022 End: 09-16-2022 lidocaine 5% topical patch Apply 1 patch(es), Topical, Daily, X 10 day(s), # 10 patch(es), 0 Refill(s) Start Date: 09/06/22 Stop Date: 09/16/22 Status: Ordered Problems Problem Classification Problem Date Documented Da te Episodic/Chronic Fluid and electrolyte disorders (1 source) Hypokalemia; Translations: [Hypokalemia] Onset: 09-06-2022 Episodic Spondylosis; intervertebral disc disorders; other back problems (1 source) Backache; Translations: [Dorsalgia, unspecified] Onset: 09-06-2022 Episodic Results Test Name Value Interpretation Reference Range Facil ity Vital Signs Date Time Vital Sign Value Performing Clinician Jose Antonioi ada 09-06-2022 18:51-0400 Diastolic blood pressure 88 mm[Hg] DR SALIMA CONSTANTINO MD [facility] 09-06-2022 18:51-0400 Heart rate 90 /min DR SALIMA CONSTANTINO MD [facility] 09-06-2022 18:51-0400 Respiratory rate 18 /min DR SALIMA CONSTANTINO MD [facility] 09-06-2022 18:51-0400 Systolic blood pressure 140 mm[Hg] DR SALIMA CONSTANTINO MD [facility] 09-06-2022 17:04-0400 Body temperature 98.96 [degF] DR SALIMA CONSTANTINO MD [facility] 09-06-2022 17:04-0400 Diastolic blood pressure 90 mm[Hg] DR SALIMA CONSTANTINO MD [facility] 09-06-2022 17:04-0400 Heart rate 93 /min DR SALIMA CONSTANTINO MD [facility] 09-06-2022 17:04-0400 Respiratory rate 18 /min DR SALIMA CONSTANTINO MD [facility] 09-06-2022 17:04-0400 Systolic blood pressure 151 mm[Hg] DR SALIMA CONSTANTINO MD [facility] Encounters Encounter Date Encounter Type Care Provider Facility Start: 03-14-2023 ambulatory NAYA GODFREY [facility] Facility:B Start: 09-06-2022 End: 09-06-2022 Emergency department patient visit DR SALIMA CONSTANTINO MD Facility:B Start: 09-06-2022 End: 09-06-2022 Emergency department patient visit DR SALIMA CONSTANTINO MD [facility] Payers Date Payer Category Payer Unknown [id number] 2022 Self-pay 1991 Unknown [id number] 1989 Unknown [id number] Social History Date Type Detail Facility Tobacco smoking status No Smoking Status Entered [facility] Sex Assigned At Female [facility] Functional Status Date Assessment Result Facility 09-06-2022 Functional Status Independent [facility] 09-06-2022 Functional Status Standard Safet y ID band on, Call device within reach, Bed in low position, Wheels locked, personal items within reach, Visitor at bedside, Safety level maintained [facility] Mental Status Date Assessment Result Facility 09-06-2022 Mental Status Orientation Oriented x 4 [facility] 09-06-2022 Mental Status [facility] Discharge instructions 09-06-2022 Note Date & Type Note Facility 09-06-2022 Hospital Discharg e instructions Patient Education 09/06/2022 18:29:58 Back Pain (Acute or Chronic) Back Pain (Acute or Chronic) Back pain is one of the most common problems. The good news is that most people feel better in 1 to 2 weeks, and most of the rest in 1 to 2 months. Most people can remain active. People who have pain describe it differently not everyone is the same. The pain can be sharp, stabbing, shooting, aching, cramping or burning. Movement, standing, bending, lifting, sitting, or walking may worsen pain. It can be localized to one spot or area, or it can be more generalized. It can spread or radiate upwards, to the front, or go down your arms or legs (sciatica). It can cause muscle spasm. Most of the time, mechanical problems with the muscles or spine cause the pain. Mechanical problems are usually caused by an injury to the muscles or ligaments. While illness can cause back pain, it is usually not caused by a serious illness. Mechanical problems include: Physical activity such as sports, exercise, work, or normal activity Overexertion, lifting, pushing, pulling incorrectly or too aggressively Sudden twisting, bending, or stretching from an accident, or accidental movement Poor posture Stretching or moving wrong, without noticing pain at the time Poor coordination, lack of regular exercise (check with your doctor about this) Spinal disc disease or arthritis Stress Pain can also be related to , or illness like appendicitis, bladder or kidney infections, pelvic infections, and many other things. Acute back pain usually gets better in 1 to 2 weeks. Back pain related to disk disease, arthritis in the spinal joints or spinal stenosis (narrowing of the spinal canal) can become chronic and last for months or years. Unless you had a physical injury (for example, a car accident or fall) X-rays are usually not needed for the initial evaluation of back pain. If pain continues and does not respond to medical treatment, X-rays and other tests may be needed. Home care Try these home care recommendations: When in bed, try to find a position of comfort. A firm mattress is best. Try lying flat on your back with pillows under your knees. You can also try lying on your side with your knees bent up towards your chest and a pillow between your knees. At first, do not try to stretch out the sore spots. If there is a strain, it is not like the good soreness you get after exercising without an injury. In this case, stretching may make it worse. Don't sit for long periods, as in a long car ride or during other travel. This puts more stress on the lower back than standing or walking. During the first 24 to 72 hours after an acute injury or flare up of chronic back pain, apply an ice pack to the painful area for 20 minutes and then remove it for 20 minutes. Do this over a period of 60 to 90 minutes or several times a day. This will reduce swelling and pain. Wrap the ice pack in a thin towel or plastic to protect your skin. You can start with ice, then switch to heat. Heat (hot shower, hot bath, or heating pad) reduces pain and works well for muscle spasms. Heat can be applied to the painful area for 20 minutes then remove it for 20 minutes. Do this over a period of 60 to 90 minutes or several times a day. Do not sleep on a heating pad. It can lead to skin verdugo or tissue damage. You can alternate ice and heat therapy. Talk with your doctor about the best treatment for your back pain. Therapeutic massage can help relax the back muscles without stretching them. Be aware of safe lifting methods and do not lift anything without stretching first. Medicines Talk to your doctor before using medicine, especially if you have other medical problems or are taking other medicines. You may use vjmi-rum-weazhap medicine as directed on the bottle to control pain, unless another pain medicine was prescribed. If you have chronic conditions like diabetes, liver or kidney disease, stomach ulcers, or gastrointestinal bleeding, or are taking blood thinners, talk to your doctor before taking any medicine. Be careful if you are given a prescription medicines, narcotics, or medicine for muscle spasms. They can cause drowsiness, affect your coordination, reflexes, and judgement. Do not drive or operate heavy machinery. Follow-up care Follow up with your healthcare provider, or as advised. A radiologist will review any X-rays that were taken. Your provide will notify you of any new findings that may affect your care. Call 911 Call 911 if any of the following occur: Trouble breathing Confusion Very drowsy or trouble awakening Fainting or loss of consciousness Rapid or very slow heart rate Loss of bowel or bladder control When to seek medical advice Call your healthcare provider right away if any of these occur: Pain becomes worse or spreads to your legs Weakness or numbness in one or both legs Numbness in the groin or genital area [id number] [employer]. [address] [place] [address], [place] [address]. All rights reserved. This information is not intended as a substitute for professional medical care. Always follow your healthcare professional's instructions. Follow Up Care 09/06/2022 16:54:12 With:Follow up with primary care provider Address:Unknown When:2-4 days Comments:Take ibuprofen for pain, follow close with your doctor. Eat a high potassium diet including bananas, oranges, avocados, black beans, potatoes. Follow-up with your doctor [facility] Emergency department Discharge summary 09-06-2022 Note Date & Type Note Facility 09-06-2022 Emergency department Discharge summary Discharge Instructions Thank you for allowing [facility] to assist you with your healthcare needs. The following is important discharge information regarding your hospital visit. Diagnosis from Today's Visit Back pain Back pain Hypokalemia What to Do Next Instructions from Your Care Team No qualifying data available. Post Acute Orders No qualifying data available. You Need to Schedule the Following Appointments Follow Up with Follow up with primary care provider When Within 2-4 days Why: Take ibuprofen for pain, follow close with your doctor. Eat a high potassium diet including bananas, oranges, avocados, black beans, potatoes. Follow-up with your doctor Allergies SOLU-Medrol Versed Medications Please ask your primary doctor or pharmacist before taking any other medication not listed, including over the counter drugs, herbal medications, vitamins and or supplements as they may interact with your home medications. What How Much When Instructions Last Dose New ketorolac (ketorolac 10 mg oral tablet) 1 tab(s) by mouth Four (4) times a day as needed for as needed for pain Duration: 3 Days not to exceed 40 mg/ day and 5 days duration for all dose forms Printed Prescription New lidocaine topical (lidocaine 5% topical patch) 1 patch(es) Topical Every day Duration: 10 Days Printed Prescription Please take this list to your next doctor s visit. Bring all medications you take, including over the counter medications, herbals and other supplements with you to your doctor s visit. Patients and families are reminded to discard old lists and to update any records with all medication providers or retail pharmacies. Medication Leaflets ketorolac (oral/injection) (CUCO toe ROLE ak) Toradol What is the most important information I should know about ketorolac? Ketorolac can increase your risk of fatal heart attack or stroke. Do not use this medicine just before or after heart bypass surgery (coronary artery bypass graft, or CABG). Ketorolac may also cause stomach or intestinal bleeding, which can be fatal. You should not use ketorolac if you have any active or recent bleeding (including bleeding inside your body), a head injury, a stomach ulcer, severe kidney disease, a bleeding or blood-clotting disorder, a history of severe allergic reaction to aspirin or an NSAID, if you are scheduled to have surgery, if you are in late , or if you are breast-feeding a baby. You should not use ketorolac if you also take pentoxifylline, probenecid, aspirin, or other NSAIDs. What is ketorolac? Ketorolac is a nonsteroidal anti-inflammatory drug (NSAID) that is used short-term (5 days or less) to treat moderate to severe pain. Ketorolac may also be used for purposes not listed in this medication guide. What should I discuss with my healthcare provider before taking ketorolac? Ketorolac can increase your risk of fatal heart attack or stroke, even if you don't have any risk factors. Do not use this medicine just before or after heart bypass surgery (coronary artery bypass graft, or CABG). Ketorolac may also cause stomach or intestinal bleeding, which can be fatal. These conditions can occur without warning while you are using ketorolac, especially in older adults. You should not use ketorolac if you are allergic to it, or if you have: active or recent stomach ulcer, stomach bleeding, or intestinal bleeding; a bleeding or blood-clotting disorder; a closed head injury or bleeding in your brain; bleeding from a recent surgery; severe kidney disease or dehydration; a history of asthma or severe allergic reaction after taking aspirin or an NSAID; if you are scheduled to have surgery (especially bypass surgery); or if you are in late or you are breast-feeding a baby. Some medicines can cause unwanted or dangerous effects when used with ketorolac. Your doctor may need to change your treatment plan if you use any of the following drugs: pentoxifylline; probenecid; or aspirin or other NSAIDs--ibuprofen (Advil, Motrin), naproxen (Aleve), celecoxib, diclofenac, indomethacin, meloxicam, and others. Tell your doctor if you have ever had: heart disease, high blood pressure, high cholesterol, diabetes, or if you smoke; a heart attack, stroke, or blood clot; stomach ulcers or bleeding; inflammatory bowel disease, ulcerative colitis, or Crohn's disease; liver disease; kidney disease (or if you are on dialysis); asthma; or fluid retention. If you are , you should not take ketorolac unless your doctor tells you to. Taking an NSAID during the last 20 weeks of can cause serious heart or kidney problems in the unborn baby and possible complications with your . Tell your doctor if you are . Ketorolac is not approved for use by anyone younger than 2 years old. How should I take ketorolac? Follow all directions on your prescription label and read all medication guides. Use the lowest dose that is effective in treating your condition. Ketorolac oral is taken by mouth. Ketorolac injection is given as an infusion into a vein. A healthcare provider will give you this injection Ketorolac should not be used for longer than 5 days, including both injection plus tablets. Long-term use of this medicine can damage your kidneys or cause bleeding. Store at room temperature away from moisture, heat, and light. Keep the bottle tightly closed when not in use. What happens if I miss a dose? Since ketorolac is used for pain, you are not likely to miss a dose. Skip any missed dose if it is almost time for your next dose. Do not use two doses at one time. What happens if I overdose? Seek emergency medical attention or call the Poison Help line at . What should I avoid while taking ketorolac? Avoid drinking alcohol. It may increase your risk of stomach bleeding. Ask a doctor or pharmacist before using other medicines for pain, fever, swelling, or cold/flu symptoms. They may contain ingredients similar to ketorolac (such as aspirin, ibuprofen, ketoprofen, or naproxen). What are the possible side effects of ketorolac? Get emergency medical help if you have signs of an allergic reaction (hives, difficult breathing, swelling in your face or throat) or a severe skin reaction (fever, sore throat, burning in your eyes, skin pain, red or purple skin rash that spreads and causes blistering and peeling). Get emergency medical help if you have signs of a heart attack or stroke: chest pain spreading to your jaw or shoulder, sudden numbness or weakness on one side of the body, slurred speech, feeling short of breath. Stop using ketorolac and call your doctor at once if you have: shortness of breath (even with mild exertion); swelling or rapid weight gain; a skin rash, no matter how mild; signs of stomach bleeding--bloody or tarry stools, coughing up blood or vomit that looks like coffee grounds; liver problems--loss of appetite, stomach pain (upper right side), tiredness, itching, dark urine, scott-colored stools, jaundice (yellowing of the skin or eyes); kidney problems--little or no urination, swelling in your feet or ankles, feeling tired or short of breath; o low red blood cells (anemia)--pale skin, unusual tiredness, feeling light-headed or short of breath, cold hands and feet. Common side effects may include: nausea, stomach pain, indigestion, diarrhea; dizziness, drowsiness; headache; or swelling. This is not a complete list of side effects and others may occur. Call your doctor for medical advice about side effects. You may report side effects to FDA at 8-998-VQA-8360. What other drugs will affect ketorolac? Ask your doctor before using ketorolac if you take an antidepressant. Taking certain antidepressants with an NSAID may cause you to bruise or bleed easily. Tell your doctor about all your other medicines, especially: lithium; methotrexate; heparin or warfarin (Coumadin, Jantoven); antipsychotic medicine; heart or blood pressure medication, including a diuretic or 'water pill'; seizure medicine (carbamazepine, phenytoin); or steroid medicine (such as prednisone). This list is not complete. Other drugs may affect ketorolac, including prescription and lfzl-wea-aoglked medicines, vitamins, and herbal products. Not all possible drug interactions are listed here. Where can I get more information? Your pharmacist can provide more information about ketorolac. Remember, keep this and all other medicines out of the reach of children, never share your medicines with others, and use this medication only for the indication prescribed. Every effort has been made to ensure that the information provided by [employer]. ('[employer]') is accurate, up-to-date, and complete, but no guarantee is made to that effect. Drug information contained herein may be time sensitive. [employer] information has been compiled for use by healthcare practitioners and consumers in the [place] and therefore [employer] does not warrant that uses outside of the [place] are appropriate, unless specifically indicated otherwise. [employer]'s drug information does not endorse drugs, diagnose patients or recommend therapy. [employer]'s drug information is an informational resource designed to assist licensed healthcare practitioners in caring for their patients and/or to serve consumers viewing this service as a supplement to, and not a substitute for, the expertise, skill, knowledge and judgment of healthcare practitioners. The absence of a warning for a given drug or drug combination in no way should be construed to indicate that the drug or drug combination is safe, effective or appropriate for any given patient. [facility] does not assume any responsibility for any aspect of healthcare administered with the aid of information [facility] provides. The information contained herein is not intended to cover all possible uses, directions, precautions, warnings, drug interactions, allergic reactions, or adverse effects. If you have questions about the drugs you are taking, check with your doctor, nurse or pharmacist. Copyright 7256-5242 [facility]. Version: 08.05. Revision Date: 11/19/2020. lidocaine topical (LYE mehta joseph TOP i maria alejandra) AneCream, Bactine, Glydo, LidaMantle, Lidoderm, LidoRx, Medi-Quik [place], RadiaGuard, RectiCare, Regenecare NIELSEN [place], Solarcaine Cool Aloe What is the most important information I should know about lidocaine topical? An overdose of numbing medicine can cause fatal side effects if too much of the medicine is absorbed through your skin. Do not use large amounts of lidocaine topical, or cover treated skin areas with a bandage or plastic wrap without medical advice. Keep both used and unused lidocaine skin patches out of the reach of children or pets. The amount of lidocaine in the skin patches could be harmful to a child or pet who accidentally sucks on or swallows the patch. What is lidocaine topical? Lidocaine is a local anesthetic (numbing medication). There are many brands and forms of lidocaine available. Not all brands are listed on this leaflet. Lidocaine topical (for use on the skin) is used to reduce pain or discomfort caused by skin irritations such as sunburn, insect bites, poison mayelin, poison oak, poison sumac, and minor cuts, scratches, or verdugo. Lidocaine topical is also used to treat rectal discomfort caused by hemorrhoids. Lidocaine intradermal device can be used in minor medical procedures such as venipuncture or peripheral intravenous cannulation. Lidocaine topical may also be used for purposes not listed in this medication guide. What should I discuss with my healthcare provider before using lidocaine topical? You should not use lidocaine topical if you are allergic to any type of numbing medicine. Fatal overdoses have occurred when numbing medicines were used without the advice of a medical doctor (such as during a cosmetic procedure like laser hair removal). However, overdose has also occurred in women treated with a numbing medicine before having a mammography. Be aware that many cosmetic procedures are performed without a medical doctor present. Tell your doctor if you have ever had: a blood cell disorder called methemoglobinemia (in you or a family member); liver disease; or if you take a heart rhythm medicine. Tell your doctor if you are or . If you apply lidocaine topical to your chest, avoid areas that may come into contact with the baby's mouth. How should I use lidocaine topical? Use this medicine exactly as directed on the label, or as it has been prescribed by your doctor. Do not apply this medicine in larger amounts than recommended. Improper use of lidocaine topical may result in . Lidocaine topical comes in many different forms (gel, spray, cream, lotion, ointment, liquid, skin patch, and others). Do not take by mouth. Topical medicine is for use only on the skin. If this medicine gets in your eyes, nose, mouth, rectum, or vagina, rinse with water. Read and carefully follow any Instructions for Use provided with your medicine. Ask your doctor or pharmacist if you do not understand these instructions. Use the smallest amount of medicine needed to numb the skin or relieve pain. Your body may absorb too much of this medicine if you use too much, if you apply it over large skin areas, or if you apply heat, bandages, or plastic wrap to treated skin areas. Skin that is cut or irritated may also absorb more topical medication than healthy skin. Do not apply this medicine to swollen skin areas or deep puncture wounds. Avoid using the medicine on skin that is raw or blistered, such as a severe burn or abrasion. Do not cover treated skin unless your doctor has told you to. Lidocaine topical may be applied with your finger tips or a cotton swab. Lidocaine intradermal device is applied by a healthcare provider. Store at room temperature away from moisture and heat. Keep both used and unused lidocaine topical skin patches out of the reach of children or pets. The amount of lidocaine in the skin patches could be harmful to a child or pet who accidentally sucks on or swallows the patch. Seek emergency medical attention if this happens. What happens if I miss a dose? Since lidocaine topical is used when needed, you may not be on a dosing schedule. Skip any missed dose if it's almost time for your next dose. Do not use two doses at one time. What happens if I overdose? Seek emergency medical attention or call the Poison Help line at . An overdose of numbing medicine can cause fatal side effects if too much of the medicine is absorbed through your skin and into your blood. Overdose symptoms may include uneven heartbeats, seizure (convulsions), slowed breathing, coma, or respiratory failure (breathing stops). Lidocaine applied to the skin is not likely to cause an overdose unless you apply more than the recommended dose. What should I avoid while using lidocaine topical? Avoid touching the sticky side of a lidocaine skin patch while applying it. Avoid accidentally injuring treated skin areas while they are numb. Avoid coming into contact with very hot or very cold surfaces. What are the possible side effects of lidocaine topical? Get emergency medical help if you have signs of an allergic reaction: hives; difficulty breathing; swelling of your face, lips, tongue, or throat. Call your doctor at once if you have: severe headache or vomiting; severe burning, stinging, or irritation where the medicine was applied; swelling or redness; sudden dizziness or drowsiness after medicine is applied; confusion, problems with speech or vision, ringing in your ears; or unusual sensations of temperature. Common side effects include: mild irritation where the medication is applied; or numbness in places where the medicine is accidentally applied. This is not a complete list of side effects and others may occur. Call your doctor for medical advice about side effects. You may report side effects to FDA at 1-041-KBO-4717. What other drugs will affect lidocaine topical? Medicine used on the skin is not likely to be affected by other drugs you use. But many drugs can interact with each other. Tell each of your health care providers about all medicines you use, including prescription and brau-orj-ozgkime medicines, vitamins, and herbal products. Where can I get more information? Your pharmacist can provide more information about lidocaine topical. Remember, keep this and all other medicines out of the reach of children, never share your medicines with others, and use this medication only for the indication prescribed. Every effort has been made to ensure that the information provided by [employer]. ('[employer]') is accurate, up-to-date, and complete, but no guarantee is made to that effect. Drug information contained herein may be time sensitive. [employer] information has been compiled for use by healthcare practitioners and consumers in the [place] and therefore [employer] does not warrant that uses outside of the [place] are appropriate, unless specifically indicated otherwise. [employer] drug information does not endorse drugs, diagnose patients or recommend therapy. [employer] drug information is an informational resource designed to assist licensed healthcare practitioners in caring for their patients and/or to serve consumers viewing this service as a supplement to, and not a substitute for, the expertise, skill, knowledge and judgment of healthcare practitioners. The absence of a warning for a given drug or drug combination in no way should be construed to indicate that the drug or drug combination is safe, effective or appropriate for any given patient. [employer] does not assume any responsibility for any aspect of healthcare administered with the aid of information [employer] provides. The information contained herein is not intended to cover all possible uses, directions, precautions, warnings, drug interactions, allergic reactions, or adverse effects. If you have questions about the drugs you are taking, check with your doctor, nurse or pharmacist. Copyright 8879-0184 [employer]. Version: 9.02. Revision Date: 03/21/2022. Education Materials Back Pain (Acute or Chronic) Back pain is one of the most common problems. The good news is that most people feel better in 1 to 2 weeks, and most of the rest in 1 to 2 months. Most people can remain active. People who have pain describe it differently not everyone is the same. The pain can be sharp, stabbing, shooting, aching, cramping or burning. Movement, standing, bending, lifting, sitting, or walking may worsen pain. It can be localized to one spot or area, or it can be more generalized. It can spread or radiate upwards, to the front, or go down your arms or legs (sciatica). It can cause muscle spasm. Most of the time, mechanical problems with the muscles or spine cause the pain. Mechanical problems are usually caused by an injury to the muscles or ligaments. While illness can cause back pain, it is usually not caused by a serious illness. Mechanical problems include: Physical activity such as sports, exercise, work, or normal activity Overexertion, lifting, pushing, pulling incorrectly or too aggressively Sudden twisting, bending, or stretching from an accident, or accidental movement Poor posture Stretching or moving wrong, without noticing pain at the time Poor coordination, lack of regular exercise (check with your doctor about this) Spinal disc disease or arthritis Stress Pain can also be related to , or illness like appendicitis, bladder or kidney infections, pelvic infections, and many other things. Acute back pain usually gets better in 1 to 2 weeks. Back pain related to disk disease, arthritis in the spinal joints or spinal stenosis (narrowing of the spinal canal) can become chronic and last for months or years. Unless you had a physical injury (for example, a car accident or fall) X-rays are usually not needed for the initial evaluation of back pain. If pain continues and does not respond to medical treatment, X-rays and other tests may be needed. Home care Try these home care recommendations: When in bed, try to find a position of comfort. A firm mattress is best. Try lying flat on your back with pillows under your knees. You can also try lying on your side with your knees bent up towards your chest and a pillow between your knees. At first, do not try to stretch out the sore spots. If there is a strain, it is not like the good soreness you get after exercising without an injury. In this case, stretching may make it worse. Don't sit for long periods, as in a long car ride or during other travel. This puts more stress on the lower back than standing or walking. During the first 24 to 72 hours after an acute injury or flare up of chronic back pain, apply an ice pack to the painful area for 20 minutes and then remove it for 20 minutes. Do this over a period of 60 to 90 minutes or several times a day. This will reduce swelling and pain. Wrap the ice pack in a thin towel or plastic to protect your skin. You can start with ice, then switch to heat. Heat (hot shower, hot bath, or heating pad) reduces pain and works well for muscle spasms. Heat can be applied to the painful area for 20 minutes then remove it for 20 minutes. Do this over a period of 60 to 90 minutes or several times a day. Do not sleep on a heating pad. It can lead to skin verdugo or tissue damage. You can alternate ice and heat therapy. Talk with your doctor about the best treatment for your back pain. Therapeutic massage can help relax the back muscles without stretching them. Be aware of safe lifting methods and do not lift anything without stretching first. Medicines Talk to your doctor before using medicine, especially if you have other medical problems or are taking other medicines. You may use rwsd-juj-gttkeee medicine as directed on the bottle to control pain, unless another pain medicine was prescribed. If you have chronic conditions like diabetes, liver or kidney disease, stomach ulcers, or gastrointestinal bleeding, or are taking blood thinners, talk to your doctor before taking any medicine. Be careful if you are given a prescription medicines, narcotics, or medicine for muscle spasms. They can cause drowsiness, affect your coordination, reflexes, and judgement. Do not drive or operate heavy machinery. Follow-up care Follow up with your healthcare provider, or as advised. A radiologist will review any X-rays that were taken. Your provide will notify you of any new findings that may affect your care. Call 911 Call 911 if any of the following occur: Trouble breathing Confusion Very drowsy or trouble awakening Fainting or loss of consciousness Rapid or very slow heart rate Loss of bowel or bladder control When to seek medical advice Call your healthcare provider right away if any of these occur: Pain becomes worse or spreads to your legs Weakness or numbness in one or both legs Numbness in the groin or genital area [id number] [employer]. [address] [place], [place] [id number]. All rights reserved. This information is not intended as a substitute for professional medical care. Always follow your healthcare professional's instructions. Additional Information VACCINATE! IT SAVES LIVES! Members of the community who have not yet received the COVID-19 vaccine and would like to receive it can visit one of [facility] vaccine clinics. There are many vaccine clinic locations within the [facility]. For locations and available times, please visit [email or web address]. It is important to note that some COVID mobile vaccine clinics are held outdoors and may be canceled in rainy or stormy conditions. To learn more about pediatric vaccinations (ages 5-11), we invite you to visit the [facility] webpage. [email or web address] To learn more about the COVID-19 vaccine, we invite you to visit the [employer] website for a list of frequently asked questions. [email or web address] [email or web address] [facility] Patient Portal Access Instructions: Stay connected with your healthcare team and access your personal medical information anytime with the [employer] Patient Portal. If you would like a full copy of your medical records please contact the [facility] Medical Records Department Sunday through Sunday between 8a.m. and 4:30p.m. Please follow the directions below to access the portal: 1.Access the email account you provided upon registration to the [facility].2.Look for an invitation email from [facility].3.Open the email and access the invitation link: Accept Invitation to [employer]4.Fill in the required garrison to create your account. Sign into [email or web address] with your username and password that you created in the above steps to stay up to date. You can then view a summary of results, a summary of your visits, and the ability to download your summaries to your computer or send the information securely to a physician. Remember that your healthcare information is confidential, so carefully consider who you will allow to register on the [employer] Patient Portal for access to your information. You can also access the [employer] Patient Portal on the [employer]. Simply click on Health Records under Health Data and then click on the [employer] logo. HOW TO SAFELY DISPOSE OF PRESCRIPTION MEDICATIONS Please use one of the following methods to safely dispose of your unused medications. 1.Use a drug disposal kit: the drug disposal pouch allows you to safely discard your old and unused drugs. Ask your nurse to give you one when you are discharged.2.Visit a local take-back location: Many local pharmacies and police departments have programs that collect old and unwanted prescription drugs. Call your local pharmacy or go to http://bit.ly/2T7Zj2o to find one close to you.3.Make use of household items: Use cat litter or old coffee grounds to dispose medications if other options are not available. Mix your drugs with these household products, seal them in an airtight container and throw it into the garbage. Call [facility]: [phone] to be sure your drugs can be disposed of in this way. Some medicines may require a different approach.4.Never flush your medications down the toilet. IF YOU HAVE BEEN PRESCRIBED AN OPIOIDS FOR PAIN If you have been prescribed an opioid (such as hydrocodone, oxycodone or morphine), it is critical to understand the possible side effects and risks of opioid pain medications. Even when taken as directed, opioids can have several side effects including: Tolerance, meaning you might need to take more of a medication for the same pain relief. Nausea, vomiting and/or constipation. Sleepiness, dizziness, dry mouth, confusion, depression or itching. Physical dependence, meaning you have withdrawal symptoms when a medication is stopped ? this can develop within a few days. KNOW YOUR RESPONSIBILITIES It is important to know exactly how much and how often to take the opioid pain medications you are prescribed. Never take opioids in higher amounts or more often than prescribed. Do not combine opioids with alcohol or other drugs that cause drowsiness, such as benzodiazepines, also known as benzos, including diazepam and alprazolam, muscle relaxants or sleep aids. Never sell or share prescription opioids. This is illegal. Store opioids in a secure place and out of reach of others (including children, family, friends and visitors). The last page(s) of this document has been signed and retained as a CHART COPY Signatures Patient Education Materials Back Pain (Acute or Chronic) Medication Leaflets ketorolac (oral/injection), lidocaine topical My discharge plan and instructions have been reviewed and explained to me and IALVINA AMBERLY D understand my current condition and have read and understand these discharge instructions. I have received a written copy of the plan/instructions. If I have questions, I am aware that I should contact my doctor. Patient/Planning Feeder Signature: Date/Time: Relationship to Patient: ___ Witness Name/Signature: Date/Time: [facility] Evaluation + Plan note Note Date & Type Note Facility Evaluation + Plan note No data available for this section [facility] Summary Purpose Family History No Family History Records Found Advance Directives No Advanced Directives Records Found Additional Source Comments Care Team (unrecognized sect ion and content) Care Team Personnel Name: PHYSICIAN, NONE Position: Physician Member Role: Primary Care Physician Name: SALIMA CONSTANTINO MD Position: ED Physician Member Role: ED Physician Address: Address: [address] [place] [address] INFORMATION SOURCE (unrecogn ized section and content) FOR RECORDS PERTAINING TO PATIENTS WHO ARE OR HAVE BEEN ENROLLED IN A CHEMICAL DEPENDENCY/SUBSTANCEABUSE PROGRAM, SOME INFORMATION MAY BE OMITTED. This clinical summary was aggregated from multiple sources. Caution should be exercised in using it in the provision of clinical care. This summary normalizes information from multiple sources, and as a consequence, information in this document may materially change the coding, format and clinical context of patient data. In addition, data may be omitted in some cases. CLINICAL DECISIONS SHOULD BE BASED ON THE PRIMARY CLINICAL RECORDS. [facility] [employer] [facility]. provides no warranty or guarantee of the accuracy or completeness of information in this document.
[2023-11-17] MEDS: 0.9% Normal Saline (1000mL) 1,000 ML 150 ML IV (04:42)
[2023-11-17 04:51] VITALS: BP 113/78
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
[2023-11-17 05:25] LABS: Absolute Lymphocyte Count 2.52 X10^3/uL (0.83-4.51); Absolute Neutrophil Count 5.2 X10^3/uL (2.0-7.7); Basophil# 0.07 X10^3/uL; Basophil% 0.9 % (0-1); Eosinophil# 0.01 X10^3/uL; Eosinophils% 0.1 % (0-5); Hematocrit 43.1 % (37-47); Lymphocyte # 2.52 X10^3/ul (0.83-4.51); Lymphocyte % 30.6 % (19-41); Mean Corp Hgb Conc 32.5 g/dL (32-36); Mean Corpuscular Hgb 28.1 pg (27.0-32.0); Mean Corpuscular Volume 86.4 fL (81-99); Mean Platelet Vol. 10.5 fl (6.2-12.0); Monocyte# 0.38 X10^3/uL; Monocyte% 4.6 % (0-10); NRBC Flagged by Analyzer 0 % (0-5); Neutrophil # 5.22 X10^3/uL (2.7-7.7); Neutrophil % 63.4 % (47-70); Platelet Count 263 K/mm3 (150-450); RBC Distribution Width CV 13.5 % (11.6-14.6); RBC Distribution Width SD 42.1 fl (35.1-43.9); Red Blood Count 4.99 M/mm3 (4.2-5.4); White Blood Count 8.2 K/mm3 (4.4-11.0)
== END 2023-11-17 06:00 | disposition home or self-care (01) ==
PROVIDERS: Emergency Provider Emergency Medicine; PCP Nurse Practitioner Family; Visit Provider Emergency Medicine
DX: S09.90XA Unspecified injury of head, initial encounter (principal); S80.12XA Contusion of left lower leg, initial encounter; S20.20XA Contusion of thorax, unspecified, initial encounter; S16.1XXA Strain of muscle, fascia and tendon at neck level, initial encounter; F17.210 Nicotine dependence, cigarettes, uncomplicated; V89.2XXA Person injured in unspecified motor-vehicle accident, traffic, initial encounter
CPT/HCPCS: 70450; 71260; 72125; 73030; 74177; 80048; 80053; 80320; 83690; 84703; 85025; 96361; 96374; 96375; 96376; 99283; J7030; Q9967; A4216; G0480; J2405

== ENCOUNTER 2023-12-04 16:08 | Emergency (ER) | payer BC, SELFPAY ==
[2023-12-04 16:09] VITALS: BP 143/85; PULSE 68; RESP 16; TEMP 36.7; O2SAT 99; BMI 47.1
--- OUTSIDE RECORDS SUMMARY | 2023-12-04 18:08 | XMS RPT_ITS | CCD ---
Author Name Unknown Address [address] [place] [address] Organization [facility] Care Team Providers Care Tube Roller Name Role Phone PHYSICIAN, NONE Primary Care Physician Unavailab maría CONSTANTINO MD, DR BORREGO Attending Unavailabl e PHYSICIAN, NONE Primary Care Unavailable NAYA GODFREY CNP Attending Unavaila ble PHYSICIAN, NONE Primary Care Unavailable Allergies Allergy Classification Reported Allergen(s) Allergy Type Date of Onset Reaction(s) Facility (1 source) methylPREDNISolon e; Translations: [methylprednisolo ne] Drug Allergy [facility] (1 source) Midazolam; Translations: [midazolam] Drug Allergy [facility] Medications Current Medications Medication Drug Class(es) Dates [...] pressure 88 mm[Hg] DR SALIMA CONSTANTINO MD [facility] 09-06-2022 18:51-0400 Heart rate 90 /min DR SALIMA CONSTANTINO MD [facility] 09-06-2022 18:51-0400 Respiratory rate 18 /min DR SALIMA CONSTANTINO MD [facility] 09-06-2022 18:51-0400 Systolic blood pressure 140 mm[Hg] DR SALIMA CONSTANTINO MD [facility] 09-06-2022 17:04-0400 Body temperature 98.96 [degF] DR SALIMA CONSTANTINO MD [facility] 09-06-2022 17:04-0400 Diastolic blood pressure 90 mm[Hg] DR SALIMA CONSTANTINO MD [facility] 09-06-2022 17:04-0400 Heart rate 93 /min DR SALIMA CONSTANTINO MD [facility] 09-06-2022 17:04-0400 Respiratory rate 18 /min DR SALIMA CONSTANTINO MD [facility] 09-06-2022 17:04-0400 Systolic blood pressure 151 mm[Hg] DR SALIMA CONSTANTINO MD [facility] Encounters Encounter Date Encounter Type Care Provider Facility Start: 03-14-2023 ambulatory NAYA GODFREY [facility] Facility:B Start: 09-06-2022 End: 09-06-2022 Emergency department patient visit DR SALIMA CONSTANTINO MD Facility:B Start: 09-06-2022 End: 09-06-2022 Emergency department patient visit DR SALIMA CONSTANTINO MD [facility] Payers Date Payer Category Payer Unknown [id number] 2022 Self-pay 1991 Unknown [id number] 1989 Unknown [id number] Social History Date Type Detail Facility Tobacco smoking status No Smoking Status Entered [facility] Sex Assigned At Female [facility] Functional Status Date Assessment Result Facility 09-06-2022 Functional Status Independent [facility] 09-06-2022 Functional Status Standard Safet y ID band on, Call device within reach, Bed in low position, Wheels locked, personal items within reach, Visitor at bedside, Safety level maintained [facility] Mental Status Date Assessment Result Facility 09-06-2022 Mental Status Orientation Oriented x 4 [facility] 09-06-2022 [facility] instructions 09-06-2022 Note Date & Type [...] are taking other medicines. You may use lrxe-hgj-bcmvozs medicine as directed on the bottle to [...] Numbness in the groin or genital area 4597-2379 [employer]. [address] [place] [address], [place] [address]. All rights reserved. This information is not intended as a substitute for professional medical care. Always follow your healthcare professional's instructions. Follow Up Care 09/06/2022 16:54:12 With:Follow up with primary care provider Address:Unknown When:2-4 days Comments:Take ibuprofen for pain, follow close with your doctor. Eat a high potassium diet including bananas, oranges, avocados, black beans, potatoes. Follow-up with your doctor [facility] Emergency department Discharge summary 09-06-2022 Note Date & Type Note Facility 09-06-2022 Emergency department Discharge summary Discharge Instructions Thank you for allowing [facility] to assist you with your healthcare needs. [...] may report side effects to FDA at 2-579-LBT-5922. What other drugs will affect ketorolac? Ask [...] drugs may affect ketorolac, including prescription and jtzc-ddg-wbnfkqh medicines, vitamins, and herbal products. Not all [...] to ensure that the information provided by [employer]. ('[employer]') is accurate, up-to-date, and complete, but no guarantee is made to that effect. Drug information contained herein may be time sensitive. [employer] information has been compiled for use by healthcare practitioners and consumers in the [place] and therefore [employer] does not warrant that uses outside of the [place] are appropriate, unless specifically indicated otherwise. [employer]'s drug information does not endorse drugs, diagnose patients or recommend therapy. [employer]'s drug information is an informational resource designed [...] effective or appropriate for any given patient. [facility] does not assume any responsibility for any aspect of healthcare administered with the aid of information [facility] provides. The information contained herein is not intended to cover all possible uses, directions, precautions, warnings, drug interactions, allergic reactions, or adverse effects. If you have questions about the drugs you are taking, check with your doctor, nurse or pharmacist. Copyright 2649-7070 [facility]. Version: 08.05. Revision Date: 11/19/2020. lidocaine topical (LYE mehta joseph TOP i maria alejandra) AneCream, Bactine, Glydo, LidaMantle, Lidoderm, LidoRx, Medi-Quik [place], RadiaGuard, RectiCare, Regenecare NIELSEN [place], Solarcaine Cool Aloe What is the most [...] may report side effects to FDA at 2-343-CQW-6173. What other drugs will affect lidocaine topical? Medicine used on the skin is not likely to be affected by other drugs you use. But many drugs can interact with each other. Tell each of your health care providers about all medicines you use, including prescription and vuvh-gdb-ggabdrn medicines, vitamins, and herbal products. Where can I get more information? Your pharmacist can provide more information about lidocaine topical. Remember, keep this and all other medicines out of the reach of children, never share your medicines with others, and use this medication only for the indication prescribed. Every effort has been made to ensure that the information provided by [employer]. ('[employer]') is accurate, up-to-date, and complete, but no guarantee is made to that effect. Drug information contained herein may be time sensitive. [employer] information has been compiled for use by healthcare practitioners and consumers in the [place] and therefore [employer] does not warrant that uses outside of the [place] are appropriate, unless specifically indicated otherwise. [employer] drug information does not endorse drugs, diagnose patients or recommend therapy. [employer] drug information is an informational resource designed [...] effective or appropriate for any given patient. [employer] does not assume any responsibility for any aspect of healthcare administered with the aid of information [employer] provides. The information contained herein is not intended to cover all possible uses, directions, precautions, warnings, drug interactions, allergic reactions, or adverse effects. If you have questions about the drugs you are taking, check with your doctor, nurse or pharmacist. Copyright 5201-9842 [employer]. Version: 9.02. Revision Date: 03/21/2022. Education Materials [...] are taking other medicines. You may use pjey-wnp-qvdggtn medicine as directed on the bottle to [...] Numbness in the groin or genital area [phone] [employer]. [address] [place], [place] [address]. All rights reserved. This information is not intended as a substitute for professional medical care. Always follow your healthcare professional's instructions. Additional Information VACCINATE! IT SAVES LIVES! Members of the community who have not yet received the COVID-19 vaccine and would like to receive it can visit one of [facility] vaccine clinics. There are many vaccine clinic locations within the [facility]. For locations and available times, please visit [email or web address]. It is important to note that some COVID mobile vaccine clinics are held outdoors and may be canceled in rainy or stormy conditions. To learn more about pediatric vaccinations (ages 5-11), we invite you to visit the [facility] webpage. [email or web address]/pag [email or web address]-Mvhfq-Hmhdpkuljdu-Frequent xu-Agcze-Iafdepbdb.html To learn more about the COVID-19 vaccine, we invite you to visit the [facility] website for a list of frequently asked questions. [email or web address]-[email or web address] ently_[email or web address] [facility] Patient Portal Access Instructions: Stay connected with your healthcare team and access your personal medical information anytime with the [facility] Patient Portal. If you would like a full copy of your medical records please contact the [facility] Medical Records Department Sunday through Sunday between 8a.m. and 4:30p.m. Please follow the directions below to access the portal: 1.Access the email account you provided upon registration to the [facility].2.Look for an invitation email from [facility].3.Open the email and access the invitation link: Accept Invitation to [facility]4.Fill in the required garrison to create your account. Sign into [email or web address] with your username and password that you [...] you will allow to register on the [facility] Patient Portal for access to your information. You can also access the [facility] Patient Portal on the [employer]. Simply click on Health Records under Health Data and then click on the [email or web address] logo. HOW TO SAFELY DISPOSE OF PRESCRIPTION [...] Call your local pharmacy or go to http://bit.ly/0Z5Gn3p to find one close to you.3.Make use of household items: Use cat litter or old coffee grounds to dispose medications if other options are not available. Mix your drugs with these household products, seal them in an airtight container and throw it into the garbage. Call [facility]: [phone] to be sure your drugs can be [...] aware that I should contact my doctor. Patient/Noodle Maker Signature: Date/Time: Relationship to Patient: ___ Witness Name/Signature: Date/Time: [facility] Evaluation + Plan note Note Date & Type Note Facility Evaluation + Plan note No data available for this section [facility] Summary Purpose Family History No Family History Records Found Advance Directives No Advanced Directives Records Found Additional Source Comments Care Team (unrecognized sect ion and content) Care Team Personnel Name: PHYSICIAN, NONE Position: Physician Member Role: Primary Care Physician Name: SALIMA CONSTANTINO MD Position: ED Physician Member Role: ED Physician Address: Address: [address] [place] [address] INFORMATION SOURCE (unrecogn ized section and content) [...] BE BASED ON THE PRIMARY CLINICAL RECORDS. [facility] [email or web address] [facility]. provides no warranty or guarantee of the accuracy or completeness of information in this document.
== END 2023-12-04 16:40 | disposition left against medical advice (07) ==
LOC: ED 18:06
PROVIDERS: PCP Nurse Practitioner Family
DX: S30.1XXA Contusion of abdominal wall, initial encounter (principal); V89.2XXA Person injured in unspecified motor-vehicle accident, traffic, initial encounter; F17.210 Nicotine dependence, cigarettes, uncomplicated; Z90.49 Acquired absence of other specified parts of digestive tract

== ENCOUNTER 2023-12-05 07:37 | Emergency (ER) | payer BC, MEDICAID, SELFPAY ==
[2023-12-05 07:38] VITALS: BP 159/93; PULSE 79; RESP 16; TEMP 36.6; O2SAT 99; BMI 46.8
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
[2023-12-05] MEDS: Morphine 4 MG/ML Syringe IV (09:54)
[2023-12-05] MEDS: 0.9% Normal Saline (1000mL) 1,000 ML 125 ML IV (09:54)
[2023-12-05] MEDS: Ondansetron 4 MG/2 ML Vial IV ×2 (09:54→11:42)
[2023-12-05 09:58] LABS: Absolute Lymphocyte Count 2.78 X10^3/uL (0.83-4.51); Absolute Neutrophil Count 4.4 X10^3/uL (2.0-7.7); Basophil# 0.06 X10^3/uL; Basophil% 0.7 % (0-1); Eosinophil# 0.47 X10^3/uL; Eosinophils% 5.8 % (0-5); Hematocrit 39.9 % (37-47); Hemoglobin 12.9 g/dL (12.0-15.0); Lymphocyte # 2.78 X10^3/ul (0.83-4.51); Lymphocyte % 34.2 % (19-41); Mean Corp Hgb Conc 32.3 g/dL (32-36); Mean Corpuscular Hgb 27.9 pg (27.0-32.0); Mean Corpuscular Volume 86.4 fL (81-99); Mean Platelet Vol. 10.3 fl (6.2-12.0); Monocyte# 0.43 X10^3/uL; Monocyte% 5.3 % (0-10); NRBC Flagged by Analyzer 0 % (0-5); Neutrophil # 4.36 X10^3/uL (2.7-7.7); Neutrophil % 53.8 % (47-70); Platelet Count 281 K/mm3 (150-450); RBC Distribution Width CV 13.3 % (11.6-14.6); RBC Distribution Width SD 41.4 fl (35.1-43.9); Red Blood Count 4.62 M/mm3 (4.2-5.4); White Blood Count 8.1 K/mm3 (4.4-11.0)
--- OUTSIDE RECORDS SUMMARY | 2023-12-05 10:01 | XMS RPT_ITS | CCD ---
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 Name Role Phone PHYSICIAN, NONE Primary Care Physician Unavailab maría CONSTANTINO MD, DR BORREGO Attending Unavailabl e PHYSICIAN, NONE Primary Care Unavailable NAYA GODFREY CNP Attending Unavaila ble PHYSICIAN, NONE Primary Care Unavailable Allergies Allergy Classification Reported Allergen(s) Allergy Type Date of Onset Reaction(s) Facility (1 source) methylPREDNISolon e; Translations: [methylprednisolo ne] Drug Allergy [facility] (1 source) Midazolam; Translations: [midazolam] Drug Allergy [facility] Medications Current Medications Medication Drug Class(es) [...] pressure 88 mm[Hg] DR SALIMA CONSTANTINO MD [facility] 09-06-2022 18:51-0400 Heart rate 90 /min DR SALIMA CONSTANTINO MD [facility] 09-06-2022 18:51-0400 Respiratory rate 18 /min DR SALIMA CONSTANTINO MD [facility] 09-06-2022 18:51-0400 Systolic blood pressure 140 mm[Hg] DR SALIMA CONSTANTINO MD [facility] 09-06-2022 17:04-0400 Body temperature 98.96 [degF] DR SALIMA CONSTANTINO MD [facility] 09-06-2022 17:04-0400 Diastolic blood pressure 90 mm[Hg] DR SALIMA CONSTANTINO MD [facility] 09-06-2022 17:04-0400 Heart rate 93 /min DR SALIMA CONSTANTINO MD [facility] 09-06-2022 17:04-0400 Respiratory rate 18 /min DR SALIMA CONSTANTINO MD [facility] 09-06-2022 17:04-0400 Systolic blood pressure 151 mm[Hg] DR SALIMA CONSTANTINO MD [facility] Encounters Encounter Date Encounter Type Care Provider Facility Start: 03-14-2023 ambulatory NAYA GODFERY [facility] Facility:B Start: 09-06-2022 End: 09-06-2022 Emergency department patient visit DR SALIMA CONSTANTINO MD Facility:B Start: 09-06-2022 End: 09-06-2022 Emergency department patient visit DR SALIMA CONSTANTINO MD [facility] Payers Date Payer Category Payer Unknown [id number] 2022 Self-pay 1991 Unknown [id number] 1989 Unknown [id number] Social History Date Type Detail Facility Tobacco smoking status No Smoking Status Entered [facility] Sex Assigned At [facility] Functional Status Date Assessment Result Facility 09-06-2022 Functional Status Independent [facility] spital [facility] 09-06-2022 Functional Status Standard Safet y ID band on, Call device within reach, Bed in low position, Wheels locked, personal items within reach, Visitor at bedside, Safety level maintained [facility] Mental Status Date Assessment Result Facility 09-06-2022 Mental Status Orientation Oriented x 4 [facility] 09-06-2022 [facility] Status [facility] Discharge instructions 09-06-2022 Note Date & Type [...] are taking other medicines. You may use piya-uep-uajorzj medicine as directed on the bottle to [...] Numbness in the groin or genital area 4141-2784 [employer]. [address] [place] [address], [place] [address]. All rights reserved. This information is not intended as a substitute for professional medical care. Always follow your healthcare professional's instructions. Follow Up Care 09/06/2022 16:54:12 With:Follow up with primary care provider Address:Unknown When:2-4 days Comments:Take ibuprofen for pain, follow close with your doctor. Eat a high potassium diet including bananas, oranges, avocados, black beans, potatoes. Follow-up with your doctor [facility] Emergency department Discharge summary 09-06-2022 Note Date & Type Note Facility 09-06-2022 Emergency department Discharge summary Discharge Instructions Thank you for allowing [facility] to assist you with your healthcare needs. [...] may report side effects to FDA at 4-578-OJS-6234. What other drugs will affect ketorolac? Ask [...] drugs may affect ketorolac, including prescription and oade-irg-lpwicyr medicines, vitamins, and herbal products. Not all [...] to ensure that the information provided by [employer]. ('[employer]') is accurate, up-to-date, and complete, but no guarantee is made to that effect. Drug information contained herein may be time sensitive. [employer] information has been compiled for use by healthcare practitioners and consumers in the [place] and therefore [employer] does not warrant that uses outside of the [place] are appropriate, unless specifically indicated otherwise. [employer]'s drug information does not endorse drugs, diagnose patients or recommend therapy. [employer] drug information is an informational resource designed [...] effective or appropriate for any given patient. [facility] does not assume any responsibility for any aspect of healthcare administered with the aid of information [facility] provides. The information contained herein is not intended to cover all possible uses, directions, precautions, warnings, drug interactions, allergic reactions, or adverse effects. If you have questions about the drugs you are taking, check with your doctor, nurse or pharmacist. Copyright 3184-0637 [facility]. Version: 08.05. Revision Date: 11/19/2020. lidocaine topical (LYE mehta joseph TOP i maria alejandra) AneCream, Bactine, Glydo, LidaMantle, Lidoderm, LidoRx, Medi-Quik [place], RadiaGuard, RectiCare, Regenecare NIELSEN [place], Solarcaine Cool Aloe What is the most [...] may report side effects to FDA at 0-196-FYZ-6434. What other drugs will affect lidocaine topical? Medicine used on the skin is not likely to be affected by other drugs you use. But many drugs can interact with each other. Tell each of your health care providers about all medicines you use, including prescription and cnkb-tiz-wuvygrl medicines, vitamins, and herbal products. Where can I get more information? Your pharmacist can provide more information about lidocaine topical. Remember, keep this and all other medicines out of the reach of children, never share your medicines with others, and use this medication only for the indication prescribed. Every effort has been made to ensure that the information provided by [employer]. [employer]') is accurate, up-to-date, and complete, but no guarantee is made to that effect. Drug information contained herein may be time sensitive. [employer] information has been compiled for use by healthcare practitioners and consumers in the [place] and therefore [employer] does not warrant that uses outside of the [place] are appropriate, unless specifically indicated otherwise. [employer] drug information does not endorse drugs, diagnose patients or recommend therapy. [employer] drug information is an informational resource designed [...] effective or appropriate for any given patient. [employer] does not assume any responsibility for any aspect of healthcare administered with the aid of information [employer] provides. The information contained herein is not intended to cover all possible uses, directions, precautions, warnings, drug interactions, allergic reactions, or adverse effects. If you have questions about the drugs you are taking, check with your doctor, nurse or pharmacist. Copyright 3160-7365 [employer]. Version: 9.02. Revision Date: 03/21/2022. Education Materials [...] are taking other medicines. You may use tbyu-oxu-pwptlhx medicine as directed on the bottle to [...] Numbness in the groin or genital area 5933-2566 [employer]. [address] [place], [place] [address]. All rights reserved. This information is not intended as a substitute for professional medical care. Always follow your healthcare professional's instructions. Additional Information VACCINATE! IT SAVES LIVES! Members of the community who have not yet received the COVID-19 vaccine and would like to receive it can visit one of [facility] vaccine clinics. There are many vaccine clinic locations within the [facility]. For locations and available times, please visit [email or web address]. It is important to note that some COVID mobile vaccine clinics are held outdoors and may be canceled in rainy or stormy conditions. To learn more about pediatric vaccinations (ages 5-11), we invite you to visit the [facility] webpage. [email or web address]://[email or web address]/pag es/[email or web address]-Bxwip-Azaybnrjtwl-Frequent vq-Covku-Ckvieoytx.html To learn more about the COVID-19 vaccine, we invite you to visit the [employer] website for a list of frequently asked questions. [email or web address] z-xcx-[email or web address]/yiivx-Whvpibu-Uwier ently_[email or web address]-Questions.pdf [facility] Patient Portal Access Instructions: Stay connected with your healthcare team and access your personal medical information anytime with the [employer] Patient Portal. If you would like a full copy of your medical records please contact the [facility] Medical Records Department Sunday through Sunday between 8a.m. and 4:30p.m. Please follow the directions below to access the portal: 1.Access the email account you provided upon registration to the [facility].2.Look for an invitation email from [facility].3.Open the email and access the invitation link: Accept Invitation to [facility]4.Fill in the required garrison to create your account. Sign into [email or web address] with your username and password that you [...] you will allow to register on the [facility] Patient Portal for access to your information. You can also access the [employer] Patient Portal on the [employer]. Simply click on Health Records under Health Data and then click on the [employer] logo. HOW TO SAFELY DISPOSE OF PRESCRIPTION [...] Call your local pharmacy or go to http://bit.ly/2W3Jc4p to find one close to you.3.Make use of household items: Use cat litter or old coffee grounds to dispose medications if other options are not available. Mix your drugs with these household products, seal them in an airtight container and throw it into the garbage. Call [facility]: [phone] to be sure your drugs can be [...] aware that I should contact my doctor. 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: Date/Time: Relationship to Patient: ___ Witness Name/Signature: Date/Time: [facility] Evaluation + Plan note Note Date & Type Note Facility Evaluation + Plan note No data available for this section [facility] Summary Purpose Family History No Family History Records Found Advance Directives No Advanced Directives Records Found Additional Source Comments Care Team (unrecognized sect ion and content) Care Team Personnel Name: PHYSICIAN, NONE Position: Physician Member Role: Primary Care Physician Name: SALIMA CONSTANTINO MD Position: ED Physician Member Role: ED Physician Address: Address: [address] [place] [address] INFORMATION SOURCE (unrecogn ized section and content) [...] BE BASED ON THE PRIMARY CLINICAL RECORDS. [facility]. provides no warranty or guarantee of the accuracy or completeness of information in this document.
[2023-12-05 10:08] LABS: Anion Gap 5 (5-15); BUN 7 mg/dL (7-18); BUN/Creat Ratio 8.3 RATIO (10-20); Calcium,Total 9.1 mg/dL (8.5-10.1); Chloride 112 mmol/L (98-107); Creatinine, Serum 0.84 mg/dL (0.55-1.02); EST Glomerular Filtration Rate 82 mL/min (>60); Est Glom Filt Rate - Afr Amer 99 mL/min (>60); Estimated Creatinine Clearance 123.09 ml/min; Glucose 107 mg/dL (74-106); Potassium 3.3 mmol/L (3.5-5.1); Sodium Level 142 mmol/L (136-145)
[2023-12-05 10:41] LABS: Internal QC Validated? YES +Cl - CLEAR BKGD; Pregnancy, Serum, hCG Quali. NEGATIVE Negative; Record Kit Lot#, Serum Preg. HCG0000718086
[2023-12-05 11:22] LABS: Color, Urine Yellow (Yellow); Glucose, Dipstick Normal (Normal); Ketone-Dipstick 5 mg/dl (Negative); Leukocyte Esterase-Dipstick 25 /ul (Negative); Nitrite-Dipstick Negative (Negative); Occult Blood-Urine 10 /ul (Negative); Protein-Dipstick 30 mg/dl (Negative); Urine Bilirubin Dipstick Negative (Negative); Urine Clarity Cloudy (Clear); Urine Urobilinogen 1 mg/dl (Normal)
[2023-12-05 11:28] LABS: Bacteria 1+ /hpf (None Seen); Mucous, Urine 2+ /hpf (<or=2+); Red Blood Cells-Urine 0-5 SEEN /hpf (0-5); Squamous Epithelial Cells - UA 5-10 SEEN /hpf (5-10); White Blood Cells 0-5 SEEN /hpf (0-5)
[2023-12-05 11:46] VITALS: BP 138/72; PULSE 84; RESP 16; O2SAT 98
== END 2023-12-05 11:46 | disposition home or self-care (01) ==
PROVIDERS: Emergency Provider Emergency Medicine; PCP Nurse Practitioner Family; Visit Provider Emergency Medicine
DX: S30.1XXA Contusion of abdominal wall, initial encounter (principal); V89.2XXA Person injured in unspecified motor-vehicle accident, traffic, initial encounter; F17.210 Nicotine dependence, cigarettes, uncomplicated
CPT/HCPCS: 74177; 80048; 81001; 84703; 85025; 96361; 96374; 96375; 96376; 99283; J7030; Q9967; A4216; J2405

== ENCOUNTER 2024-02-22 14:07 | Emergency (ER) | payer BC, MEDICAID, SELFPAY ==
[2024-02-22 14:10] VITALS: BP 145/94; PULSE 98; RESP 18; TEMP 36.2; O2SAT 100; BMI 42.8
--- NOTE | 2024-02-22 15:11 | CT_ITS ---
STUDY: CT ABDOMEN AND PELVIS WITH CONTRAST REASON FOR EXAM: Female, 32 years old. Abdominal Pain RADIATION DOSAGE (If Supplied By Facility): CTDIvol = ( 18.56 ) mGy, DLP = ( 1280.17 ) mGycm TECHNIQUE: Transaxial images were obtained from the dome of the diaphragm to the symphysis pubis without oral contrast. IV 100mL Isovue-370 was administered. Sagittal and coronal images were reconstructed. Individualized dose optimization techniques were used for this CT. COMPARISON: December 05, 2023. FINDINGS: The visualized lung bases are unremarkable. The visualized portions of the heart are within normal limits. Normal liver. Gallbladder not visualized consistent with cholecystectomy. Normal spleen. Normal pancreas. Normal bilateral adrenal glands. Normal right kidney. Normal left kidney. Nonspecific gastric distention with retained secretions.. Normal small intestine. Postsurgical changes status post colon resection.. There is an ahaustral featureless appearance to portions of the descending and sigmoid colon which may be consistent with nonspecific colitis The appendix is visualized and appears normal. Normal abdominal aorta. Normal inferior vena cava. Normal retroperitoneum. Normal urinary bladder. Normal abdominal wall. Normal osseous structures. CT/Abdomen/Pelvis W IV Cont ONLY IMPRESSION: Mild nonspecific gastric distention with retained secretions. No evidence for small bowel obstruction Petrous ahaustral appearance to portions of the descending and sigmoid colon which may be consistent with nonspecific colitis. Electronically Signed: Aly Pendleton MD at 16:40 EDT ,
--- NOTE | 2024-02-22 15:12 | ED.VIS.GI ---
HPI HPI - GI History of Present Illness Chief Complaint: Abd Pain Diarrhea/Melena/Hematochezia GI Symptom: Positive for Diarrhea Narrative Narrative: 32-year-old female past medical history of Crohn disease but states she has not been on meds for 8 or 9 years. She states the medication she had been on works so well that now they treat her just like irritable bowel syndrome. She presents with multiple somatic complaints including diarrhea with blood streaks, nausea but no vomiting, generalized weakness. She states that her potassium is usually low. Over the last few days she has been on the toilet after she gets home from work for a few hours needing that she has 7-8 episodes of diarrhea. Past surgical history to the abdomen includes colon resection, cholecystectomy. She states she had a stool sample, but her blood pressure has been high for me. She also relates history that she has had C. difficile in the past, but is not feeling like that because she does not have burning in her rectum. [facility] Medical History (Updated 02/22/24 @ 17:23 by Nito Nur MD) Crohn's disease Endometriosis Home Medications cyclobenzaprine 5 mg tablet 5 mg PO Q8H PRN muscle spasm 09/05/23 [History Last Taken Unknown] diazepam 10 mg tablet 10 mg PO Q8H PRN muscle spasm 09/05/23 [History Last Taken Unknown] doxepin 50 mg capsule 50 mg PO DAILY 09/05/23 [History Last Taken Unknown] doxepin 6 mg tablet 6 mg PO DAILY 09/05/23 [History Last Taken Unknown] modafinil 200 mg tablet 200 mg PO DAILY 09/05/23 [History Last Taken Unknown] promethazine 25 mg tablet 25 mg PO TID PRN nausea and vomiting #14 tabs 10/25/23 [Rx Last Taken Unknown] cyclobenzaprine 10 mg tablet 10 mg PO TID PRN Muscle Spasm #20 TABLETS 11/17/23 [Rx Last Taken Unknown] hydrocodone-acetaminophen 5-325mg 5mg-325mg 1 tab PO Q4H PRN PRN Pain 2 days #10 TABLETS 11/17/23 [Rx Last Taken Unknown] naproxen 500 mg tablet (Naprosyn) 500 mg PO BID PRN pain #20 tabs 11/17/23 [Rx Last Taken Unknown] hydrocodone-acetaminophen 5-325mg 5mg-325mg 1 tab PO Q4H PRN PRN Pain 2 days #10 TABLETS 12/05/23 [Rx Last Taken Unknown] ondansetron 4 mg disintegrating tablet 4 mg PO Q8H PRN PRN Nausea #10 tabs 12/05/23 [Rx Last Taken Unknown] ondansetron 4 mg disintegrating tablet 4 mg PO Q8H PRN PRN Nausea #10 tabs 02/22/24 [Rx Last Taken Unknown] prednisone 20 mg tablet 40 mg (2 x 20 mg) PO DAILY 7 days #14 TABLETS 02/22/24 [Rx Last Taken Unknown] Allergy/AdvReac Type Severity Reaction Status Date / Time benzocaine [From Cetacaine] Allergy Anaphylaxis Verified 02/22/24 14:08 butamben [From Cetacaine] Allergy Anaphylaxis Verified 02/22/24 14:08 methylprednisolone sodium Allergy Anaphylaxis Verified 02/22/24 14:08 succinate [From Solu-Medrol] metoclopramide [From Reglan] Allergy Other Verified 02/22/24 14:08 tetracaine [From Cetacaine] Allergy Anaphylaxis Verified 02/22/24 14:08 midazolam HCl [From Versed] AdvReac Other Verified 02/22/24 14:08 Social History Smoking Status: Current some day smoker tobacco type: cigarettes ROS ROS ED ROS Narrative Constitutional: No fever, no chills. Generalized weakness. Fluctuating blood pressure. HEENT: No sore throat. No neck pain. No loss of vision. No rhinorrhea. Cardiovascular: No chest pain. No palpitations. No pedal edema. Respiratory: No cough, no shortness of breath. Abdominal: Positive abdominal pain. Positive nausea. No vomiting. Positive diarrhea Genitourinary: No dysuria. No hematuria. Musculoskeletal: No myalgias. No arthralgias. Neurologic: No headaches. No dizziness. No lightheadedness. Skin: No rash. No change in color. Psychiatric: No depression. No anxiety. EXAM Physical Exam Narrative Exam Narrative: Afebrile. Vital signs noted. HEENT: Normocephalic. Atraumatic. PERRL, EOMI. Neck soft and supple. No point tenderness or step off. Cardiovascular: Regular rate and rhythm. No murmurs, rubs, or gallops appreciated. Respiratory: No tachypnea. Lungs clear to auscultation bilaterally. Gastrointestinal: Abdomen soft, nontender, with normoactive bowel sounds. No rebound or guarding. Neurological: Awake. Alert. Nonfocal, nonlateralizing. Skin: No rash. Normal color. No pallor. Musculoskeletal: No pedal edema. Full range of motion extremities. Const Vital Signs: 02/22/24 14:10 02/22/24 14:10 02/22/24 15:47 Temperature 97.2 F L 97.2 F L Temperature Source Temporal Temporal Pulse Rate 98 98 78 Respiratory Rate 18 18 16 Blood Pressure 145/94 H 145/94 H 121/96 H Blood Pressure Mean 111 111 104 Pulse Ox 100 100 97 Oxygen Delivery Method Room Air Room Air Room Air 02/22/24 15:49 Temperature 97.3 F L Temperature Source Temporal Pulse Rate 79 Respiratory Rate 16 Blood Pressure 121/96 H Blood Pressure Mean 104 Pulse Ox 97 Oxygen Delivery Method Room Air MDM MDM MDM Narrative Medical decision making narrative: In the differential diagnosis is Crohn exacerbation versus colitis versus gastroenteritis. I reviewed her prior records and she has been seen in the past for nonspecific abdominal pain. She tolerated morphine in the past and sometimes Zofran, and once requested Phenergan instead. Comprehensive workup was pursued. With concern for dehydration electrolyte panel will be checked as well. She will be bolused normal saline 1 L intravenously. I reviewed her laboratory work and she has slightly elevated white count of 12.0 hemoglobin normal at 13.7, hematocrit 41.4, platelet count normal at 280. Potassium is low at 2.9 which was replaced orally with chloride 110. Glucose is appropriately elevated at 85. Magnesium is normal at 2.1. Urinalysis is negative for infection. Serum is negative. LFTs are grossly unremarkable. CT shows certain areas with certain portions of the descending and sigmoid colon which may be consistent with nonspecific colitis. Given her history of Crohn disease, I do feel it is probably more of a nonspecific colitis. I do not feel that antibiotics are indicated. Patient requested more pain medication and nausea medication. She will be given Zofran, but I discussed with her that I do not feel narcotic pain medication is indicated any further and treating what is most likely Crohn's colitis, and that she would not get a prescription for narcotics. She requested Benadryl which has helped her in the past so she was administered 25 mg intravenously. I also discussed the use of prednisone with her in the burst form to help with her colitis. She is receptive to this, she was also given a note for work for today and tomorrow, and she also received a prescription for 10 Zofran ODT's. At this point in time, I do not feel that she requires supplemental potassium but she should get this rechecked by her primary care provider. I also referred her to gastroenterology as an outpatient. I feel she can be discharged safely home with follow-up. Return instructions were reviewed. Disposition is discharged home in stable condition. History & Record Review Discussion w/independent historian: Patient Additional record(s) reviewed:: Prior ED visit and Prior labs Lab Data Attestation: I reviewed the patient's lab results. Labs: Laboratory Results - last 24 hr 02/22/24 02/22/24 13:35 16:45 WBC 12.0 H RBC 4.75 Hgb 13.7 Hct 41.4 MCV 87.2 MCH 28.8 MCHC 33.1 RDW Std Deviation 40.6 RDW Coeff of Silke 13.0 Plt Count 280 MPV 10.3 Immature Gran % (Auto) 0.400 Neut % (Auto) 65.4 Lymph % (Auto) 27.5 Carson % (Auto) 6.2 Eos % (Auto) 0.0 Baso % (Auto) 0.5 Absolute Neuts (auto) 7.9 H Absolute Lymphs (auto) 3.30 Nucleated RBC % 0 Sodium 140 Potassium 2.9 L Chloride 110 H Carbon Dioxide 24.0 Anion Gap 6 BUN 9 Creatinine 0.86 Estim Creat Clear Calc 114.66 Est GFR (MDRD) Af Amer 97 Est GFR (MDRD) Non-Af 81 BUN/Creatinine Ratio 10.5 Glucose 85 Calcium 9.2 Magnesium 2.1 Total Bilirubin 0.80 AST 21 ALT 19 Alkaline Phosphatase 67 Total Protein 8.0 Albumin 4.1 Globulin 3.9 Albumin/Globulin Ratio 1.1 Serum , Qual NEGATIVE Urine Color Yellow Urine Clarity Clear Urine pH 5.0 Ur Specific [place]aird 1.020 Urine Protein 30 H Urine Glucose (UA) Normal Urine Ketones Negative Urine Occult Blood 10 H Urine Nitrite Negative Urine Bilirubin Negative Urine Urobilinogen Normal Ur Leukocyte Esterase 100 H Urine RBC 0-5 SEEN Urine WBC 0-5 SEEN Ur Squamous Epith Cells 0-5 SEEN Urine Bacteria RARE Urine Mucus RARE Radiography Diagnostic Testing: Clinical Impression(s) from Imaging Studies Abdomen/Pelvis CT 02/22/24 15:11 IMPRESSION: Mild nonspecific gastric distention with retained secretions. No evidence for small bowel obstruction Petrous ahaustral appearance to portions of the descending and sigmoid colon which may be consistent with nonspecific colitis. Electronically Signed: Aly Pendleton MD at 16:40 EDT Reading Location ID and State: [facility] / [place] Tel , Service support , Discharge Plan Triage Chief Complaint: Abd Pain ED Provider: Nito Nur Dx/Rx/DC Orders Clinical Impression: Diarrhea, Abdominal pain, Crohn's colitis, Hypokalemia Instructions: ED Crohn's Disease, ED Hypokalemia Prescriptions: New ondansetron 4 mg tablet,disintegrating 4 mg PO Q8H PRN PRN (Reason: Nausea) Qty: 10 0RF prednisone 20 mg tablet 40 mg PO DAILY 7 Days Qty: 14 0RF No Action promethazine 25 mg tablet 25 mg PO TID PRN (Reason: nausea and vomiting) Qty: 14 0RF hydrocodone-acetaminophen [hydrocodone-acetaminophen] 5-325 mg tablet 1 tab PO Q4H PRN PRN (Reason: Pain) 2 Days Qty: 10 0RF ondansetron [ondansetron] 4 mg tablet,disintegrating 4 mg PO Q8H PRN PRN (Reason: Nausea) Qty: 10 0RF diazepam 10 mg tablet 10 mg PO Q8H PRN (Reason: muscle spasm) modafinil 200 mg tablet 200 mg PO DAILY doxepin 50 mg capsule 50 mg PO DAILY doxepin 6 mg tablet 6 mg PO DAILY cyclobenzaprine 5 mg tablet 5 mg PO Q8H PRN (Reason: muscle spasm) cyclobenzaprine [cyclobenzaprine] 10 mg tablet 10 mg PO TID PRN (Reason: Muscle Spasm) Qty: 20 0RF hydrocodone-acetaminophen [hydrocodone-acetaminophen] 5-325 mg tablet 1 tab PO Q4H PRN PRN (Reason: Pain) 2 Days Qty: 10 0RF naproxen [Naprosyn] 500 mg tablet 500 mg PO BID PRN (Reason: pain) Qty: 20 0RF Stand Alone Forms: ED Work / School Excuse Primary Care Provider: Fahad Champagne Referrals: [place],Juan Alberto, DO [Med Staff - Active Staff] - As soon as possible Fahad Champagne, MASTER CONTROL SUPERVISOR-C [Primary Care Provider] - As soon as possible Disposition Disposition: Home, Self Care
[2024-02-22] MEDS: Ondansetron 4 MG/2 ML Vial IV ×2 (15:29→17:33)
[2024-02-22] MEDS: Morphine 4 MG/ML Syringe IV (15:30)
[2024-02-22 15:44] LABS: Absolute Neutrophil Count 7.9 X10^3/uL (2.0-7.7); Basophil# 0.06 X10^3/uL; Basophil% 0.5 % (0-1); Hematocrit 41.4 % (37-47); Hemoglobin 13.7 g/dL (12.0-15.0); Lymphocyte % 27.5 % (19-41); Mean Corp Hgb Conc 33.1 g/dL (32-36); Mean Corpuscular Hgb 28.8 pg (27.0-32.0); Mean Corpuscular Volume 87.2 fL (81-99); Mean Platelet Vol. 10.3 fl (6.2-12.0); Monocyte# 0.74 X10^3/uL; Monocyte% 6.2 % (0-10); NRBC Flagged by Analyzer 0 % (0-5); Neutrophil # 7.86 X10^3/uL (2.7-7.7); Neutrophil % 65.4 % (47-70); Platelet Count 280 K/mm3 (150-450); RBC Distribution Width SD 40.6 fl (35.1-43.9); Red Blood Count 4.75 M/mm3 (4.2-5.4)
[2024-02-22 15:47] VITALS: BP 121/96; PULSE 78; RESP 16; O2SAT 97
[2024-02-22 15:49] VITALS: BP 121/96; PULSE 79; RESP 16; TEMP 36.3; O2SAT 97
[2024-02-22 16:00] LABS: ALB/GLOB Ratio 1.1 RATIO (0.9-2.4); AST(SGOT) 21 U/L (15-37); Alanine Aminotransfer ALT/SGPT 19 U/L (13-56); Albumin, Serum 4.1 g/dL (3.2-5.0); Alkaline Phosphatase 67 U/L (45-117); Anion Gap 6 (5-15); BUN 9 mg/dL (7-18); BUN/Creat Ratio 10.5 RATIO (10-20); Calcium,Total 9.2 mg/dL (8.5-10.1); Chloride 110 mmol/L (98-107); Creatinine, Serum 0.86 mg/dL (0.55-1.02); EST Glomerular Filtration Rate 81 mL/min (>60); Est Glom Filt Rate - Afr Amer 97 mL/min (>60); Estimated Creatinine Clearance 114.66 ml/min; Globulin 3.9 g/dL (2.2-4.2); Glucose 85 mg/dL (74-106); Internal QC Validated? YES +Cl - CLEAR BKGD; Potassium 2.9 mmol/L (3.5-5.1); Pregnancy, Serum, hCG Quali. NEGATIVE Negative; Sodium Level 140 mmol/L (136-145)
[2024-02-22] MEDS: Potassium Chloride Oral Tablet 20 MEQ 60 MEQ PO (16:34)
[2024-02-22 16:55] LABS: Color, Urine Yellow (Yellow); Glucose, Dipstick Normal (Normal); Ketone-Dipstick Negative (Negative); Leukocyte Esterase-Dipstick 100 /ul (Negative); Nitrite-Dipstick Negative (Negative); Occult Blood-Urine 10 /ul (Negative); Protein-Dipstick 30 mg/dl (Negative); Urine Bilirubin Dipstick Negative (Negative); Urine Clarity Clear (Clear); Urine Urobilinogen Normal (Normal)
[2024-02-22 17:01] LABS: Magnesium 2.1 mg/dL (1.6-2.6)
[2024-02-22 17:01] LABS: White Blood Cells 0-5 SEEN /hpf (0-5)
[2024-02-22 17:02] LABS: Bacteria RARE /hpf (None Seen); Mucous, Urine RARE /hpf (<or=2+); Red Blood Cells-Urine 0-5 SEEN /hpf (0-5); Squamous Epithelial Cells - UA 0-5 SEEN /hpf (5-10)
[2024-02-22] MEDS: DiphenhydrAMINE 50 MG/ML Syringe 25 MG IV (17:33)
[2024-02-22 17:52] VITALS: BP 121/96; PULSE 79; RESP 16; TEMP 36.3; O2SAT 97
== END 2024-02-22 18:11 | disposition home or self-care (01) ==
PROVIDERS: Emergency Provider Emergency Medicine; PCP Nurse Practitioner Family; Visit Provider Emergency Medicine
DX: K50.10 Crohn's disease of large intestine without complications (principal); F17.210 Nicotine dependence, cigarettes, uncomplicated; E87.6 Hypokalemia
CPT/HCPCS: 74177; 80053; 81001; 83735; 84703; 85025; 96374; 96375; 96376; 99283; J7030; Q9967; A4216; J2405

== ENCOUNTER → 2024-03-03 | Outpatient (CLI) | payer BC, MEDICAID, SELFPAY ==
[2024-03-03 15:49] LABS: Absolute Neutrophil Count 5.6 X10^3/uL (2.0-7.7); Basophil# 0.05 X10^3/uL; Basophil% 0.6 % (0-1); Hematocrit 39.4 % (37-47); Hemoglobin 13.1 g/dL (12.0-15.0); Lymphocyte % 30.4 % (19-41); Mean Corp Hgb Conc 33.2 g/dL (32-36); Mean Corpuscular Hgb 29.2 pg (27.0-32.0); Mean Corpuscular Volume 87.9 fL (81-99); Mean Platelet Vol. 11.5 fl (6.2-12.0); Monocyte% 5.6 % (0-10); NRBC Flagged by Analyzer 0 % (0-5); Neutrophil # 5.62 X10^3/uL (2.7-7.7); Neutrophil % 63.2 % (47-70); POSITIVE COUNT YES; RBC Distribution Width SD 41.3 fl (35.1-43.9); Red Blood Count 4.48 M/mm3 (4.2-5.4); White Blood Count 8.9 K/mm3 (4.4-11.0)
[2024-03-03 15:50] LABS: Differential Indicated SCAN CRITERIA MET
[2024-03-03 16:12] LABS: Anion Gap 4 (5-15); BUN 7 mg/dL (7-18); BUN/Creat Ratio 8.7 RATIO (10-20); Chloride 111 mmol/L (98-107); Creatinine, Serum 0.81 mg/dL (0.55-1.02); EST Glomerular Filtration Rate 86 mL/min (>60); Est Glom Filt Rate - Afr Amer 104 mL/min (>60); Glucose 100 mg/dL (74-106); Potassium 3.2 mmol/L (3.5-5.1); Sodium Level 142 mmol/L (136-145)
[2024-03-03 16:26] LABS: Platelet Estimate ADEQUATE (ADEQ)
== END | disposition home or self-care (01) ==
LOC: LAB.FUTURE 14:47 → LAB 03-04 06:50
PROVIDERS: PCP Nurse Practitioner Family; Referring Provider Family Medicine; Visit Provider Family Medicine
DX: R19.7 Diarrhea, unspecified (principal)
CPT/HCPCS: 36415; 80048; 85025

== ENCOUNTER → 2024-03-18 | Outpatient (CLI) | payer BC, MEDICAID, SELFPAY ==
[2024-03-18 18:36] LABS: Hematocrit 39.9 % (37-47); Hemoglobin 13.1 g/dL (12.0-15.0); Mean Corp Hgb Conc 32.8 g/dL (32-36); Mean Corpuscular Volume 88.3 fL (81-99); Mean Platelet Vol. 10.9 fl (6.2-12.0); Platelet Count 222 K/mm3 (150-450); Red Blood Count 4.52 M/mm3 (4.2-5.4); White Blood Count 7.3 K/mm3 (4.4-11.0)
[2024-03-18 19:23] LABS: ALB/GLOB Ratio 0.9 RATIO (0.9-2.4); AST(SGOT) 16 U/L (15-37); Alanine Aminotransfer ALT/SGPT 26 U/L (13-56); Albumin, Serum 3.6 g/dL (3.2-5.0); Alkaline Phosphatase 64 U/L (45-117); Anion Gap 7 (5-15); BUN 8 mg/dL (7-18); BUN/Creat Ratio 12.5 RATIO (10-20); CRP 6.38 mg/L (0.0-3.0); Chloride 108 mmol/L (98-107); Creatinine, Serum 0.64 mg/dL (0.55-1.02); EST Glomerular Filtration Rate 113 mL/min (>60); Est Glom Filt Rate - Afr Amer 136 mL/min (>60); Globulin 3.8 g/dL (2.2-4.2); Glucose 63 mg/dL (74-106); Potassium 3.1 mmol/L (3.5-5.1); Protein, Total 7.4 g/dL (6.4-8.2); Sodium Level 141 mmol/L (136-145)
[2024-03-18 19:24] LABS: Erythrocyte Sedimentation Rate 10 mm/hr (0-30)
[2024-03-18 19:28] LABS: Vitamin B12 405 pg/mL (211-911)
== END | disposition home or self-care (01) ==
LOC: MTLAB 15:40
PROVIDERS: PCP Nurse Practitioner Family; Referring Provider Internal Medicine Gastroenterology; Visit Provider Internal Medicine Gastroenterology
DX: K50.90 Crohn's disease, unspecified, without complications (principal)
CPT/HCPCS: 36415; 80053; 82607; 85027; 85652; 86140

== ENCOUNTER 2024-04-12 07:27 | Observation (INO) | payer BC, MEDICAID, SELFPAY ==
[2024-04-12] VITALS (10 sets, daily range): BP systolic 92–143; BP diastolic 63–88; PULSE 61–74; RESP 11–16; TEMP 36.4–37; O2SAT 94–100; BMI 40.1
--- NOTE | 2024-04-12 07:29 | CT_ITS ---
INDICATION: Neuro deficit, acute, stroke suspected EXAMINATION: CT BRAIN WITHOUT CONTRAST, CTA HEAD, AND CTA NECK TECHNIQUE: Noncontrast axial images were obtained of the brain. Subsequently, routine carotid CT angiogram protocol was performed without and with IV contrast. In addition, images were obtained of the [place] of [place]. NASCET criteria using the distal ICAs for comparison were used for evaluation of stenoses. 3D reconstructions were reviewed. The protocol utilizes one or more of the following dose reduction techniques: automated exposure control, adjustment of mA and/or kV according to patient size,and/or use of iterative reconstruction technique. IV Contrast dosage and agent: 100 cc of Isovue-370 COMPARISON: No relevant prior comparison study available FINDINGS: --CTA NECK: AORTIC ARCH AND BRANCHES: Normal anatomy, patent. RIGHT CCA: No occlusion, significant stenosis or dissection. RIGHT ICA: No occlusion, significant stenosis or dissection. LEFT CCA: No occlusion, significant stenosis or dissection. LEFT ICA: Limited evaluation of the proximal left internal carotid artery due to significant motion artifacts. No significant stenosis is seen. RIGHT VERTEBRAL ARTERY: Suboptimal evaluation of the vertebral arteries due to significant motion artifacts. LEFT VERTEBRAL ARTERY: Suboptimal evaluation of the vertebral artery due to significant motion artifacts. NECK SOFT TISSUES: Unremarkable. --CTA HEAD: --Anterior circulation: ICAs: No significant stenosis at the intracranial/visualized segments. ACAs: No significant stenosis at the visualized segments. ACOM: Present. MCAs: No significant stenosis at the visualized segments. --Posterior circulation: PCOMs: Not clearly seen. mobile application engineer: No significant stenosis at the visualized segments. BASILAR ARTERY: No significant stenosis. VERTEBRAL ARTERIES: No significant stenosis at the intradural/visualized segments. No evidence of intracranial aneurysm or vascular malformation. Extensive collateral veins are seen in the region of the left axilla and upper chest. Stenosis of the left subclavian vein cannot be entirely excluded. CT/STROKE CTA Head AND Neck W/Con IMPRESSION: 1. No evidence of intracranial great vessel stenosis. 2. Significant motion artifacts in the region of the neck somewhat limiting the examination. 3. No definite stenosis of the common or internal carotid arteries. 4. Patent but suboptimally visualized vertebral arteries. 5. Extensive collateral veins in the left axilla and upper chest. Stenosis of the subclavian vein cannot be excluded although flow is seen to the region of the superior vena cava. N.B. : The above Results were Read Back by Marcus West MD to Joseph Delgado DO, and understanding confirmed on 04/12/2024 08:18:25 (ET). Electronically Signed: Marcus West MD at 8:22 EDT ,
--- NOTE | 2024-04-12 07:29 | CT_ITS ---
We are attempting to reach an attending provider to discuss findings. An addendum with communication details will be sent when the communication is complete. EXAM: CT HEAD WITHOUT INTRAVENOUS CONTRAST CLINICAL INDICATION: Neuro deficit, acute, stroke suspected TECHNIQUE: Multiple axial images were obtained of the head without intravenous contrast. This CT exam was performed using one or more of the following dose reduction techniques: automated exposure control, adjustment of the mA and/or kV according to patient size, and/or use of iterative reconstruction technique. RADIATION DOSE: Total DLP: 745.49 mGy-cm. COMPARISON: No relevant prior studies available. FINDINGS: BRAIN AND EXTRA-AXIAL SPACES: Unremarkable. No intra- or extra-axial hemorrhage. No evidence of acute infarct. No intracranial mass or mass effect. There is preservation of the salazar/white matter interface. Posterior fossa structures are unremarkable. Ventricles are appropriate for age. No hydrocephalus. Basal cisterns are patent. BONES/JOINTS: Unremarkable. No discrete lytic or blastic abnormalities. VASCULATURE: Middle cerebral arteries are not hyperdense. SINUSES: Unremarkable as visualized. Clear. MASTOID AIR CELLS: Unremarkable. Clear. ORBITS: Visualized globes, extraocular muscles, optic nerves and retrobulbar fat appear unremarkable. Aspects score: 10/10. CT/STROKE Brain/Head without Cont IMPRESSION: No acute findings in the head/brain. Nonstandard communication protocol initiated. Electronically Signed: Jere Valenzuela MD at 7:40 EDT ,
--- NOTE | 2024-04-12 07:29 | RAD_ITS ---
INDICATION: Neuro deficit, acute, stroke suspected EXAMINATION/TECHNIQUE: X-RAY - XR Chest 1 View COMPARISON: No relevant prior comparison study available FINDINGS: LINES/DEVICES: None. LUNGS: No consolidation, edema or effusion. No pneumothorax. MEDIASTINUM AND CARDIOVASCULAR STRUCTURES: Cardiac silhouette not enlarged. Central airways and mediastinal contour are unremarkable. BONES AND SOFT TISSUES: Unremarkable. RAD/Chest 1 View IMPRESSION: No radiographic evidence of acute cardiopulmonary disease. Electronically Signed: Marcus West MD at 9:14 EDT ,
--- NOTE | 2024-04-12 07:29 | EKG12_ITS ---
Test Reason : NEURO S/SX Blood Pressure : / mmHG Vent. Rate : 068 BPM Atrial Rate : 068 BPM P-R Int : 118 ms QRS Dur : 094 ms QT Int : 458 ms P-R-T Axes : -12 021 005 degrees QTc Int : 487 ms Sinus rhythm with marked sinus arrhythmia Prolonged QT Abnormal ECG Confirmed by EFFIE SEAMAN, PAVAN ([id number]), desk editor NIKO BADILLO ([id number]) on 04/14/2024 9:48:08 AM Referred By: Confirmed By:PAVAN CHOU MD
--- NOTE | 2024-04-12 07:38 | ED.VIS.STROK ---
HPI History of Present Illness Chief Complaint: Neuro S/Sx Informant: patient Onset/Context/Timing Onset: Today Context: Sudden Onset Timing: Continuous Quality and Location: Positive for Right Face Paresthesia, Right Arm Parasthesia, Right Leg Parasthesia, Right Arm Weakness, Right Leg Weakness, Slurred Speech and Expressive Aphasia Onset: 0530 (approximately 2 hours prior to arrival) Worsened by: Nothing Relieved by: Nothing Associated Symptoms Associated Symptoms: Negative for Nausea or Vomiting Narrative Narrative: Patient presents with difficulty speaking that began this morning. Patient was at work when this began. Patient states that it began around 0530. Coworkers state that patient was having slurred speech and then garbled speech. Currently, patient is only able to utter a couple of words. Patient indicates that she has decreased sensation on her right side. Patient also admits to some mild weakness on her right side. Patient is a poor informant due to her inability to speak. [facility] Medical History (Updated 04/12/24 @ 09:00 by Lynn Lisa RN) Endometriosis Crohn's disease Medical History unable to obtain unable to obtain Home Medications ?Medication ?Instructions ?Recorded ?Last Taken ?Type acetaminophen 500 mg capsule 500 mg PO Q6H PRN pain 04/12/24 04/12/24 History diazepam 10 mg tablet 5 - 10 mg PO TID PRN 04/12/24 04/12/24 History doxepin 75 mg capsule 75 mg PO DAILY 04/12/24 Unknown History loperamide 2 mg capsule 2 mg PO PRN 04/12/24 Unknown History modafinil 200 mg tablet 400 mg PO DAILY 04/12/24 04/12/24 History promethazine 12.5 mg tablet 12.5 mg PO BID PRN PRN nausea 04/12/24 Unknown History semaglutide (weight loss) 2.4 2.4 mg subcut QWEEK 04/12/24 Unknown History mg/0.75 mL subcutaneous pen injector (Navi) Allergy/AdvReac Type Severity Reaction Status Date / Time benzocaine (From Cetacaine) Allergy Severe Anaphylaxis Verified 04/12/24 08:59 butamben (From Cetacaine) Allergy Severe Anaphylaxis Verified 04/12/24 08:59 methylprednisolone (From Allergy Severe Anaphylaxis Verified 04/12/24 08:59 Solu-Medrol) tetracaine (From Cetacaine) Allergy Severe Anaphylaxis Verified 04/12/24 08:59 midazolam (From Versed) Allergy Unknown Other Verified 04/12/24 08:59 metoclopramide (From Reglan) AdvReac Unknown Other Verified 04/12/24 08:59 Surgical History unable to obtain unable to obtain Social History Smoking Status: Unknown if ever smoked ROS ROS ED Review of Systems ROS Unobtainable: other Details: Expressive aphasia EXAM Physical Exam Const Vital Signs: 04/12/24 07:40 04/12/24 07:59 04/12/24 08:05 Temperature 97.7 F L 97.7 F L Temperature Source Temporal Temporal Pulse Rate 68 61 Respiratory Rate 16 12 Blood Pressure 120/63 120/63 Blood Pressure Mean 82 82 Pulse Ox 99 Oxygen Delivery Method Room Air Room Air Room Air 04/12/24 08:26 Temperature Temperature Source Pulse Rate 63 Respiratory Rate 13 Blood Pressure 129/76 H Blood Pressure Mean 93 Pulse Ox 96 Oxygen Delivery Method Room Air Positive well nourished and well developed General Appearance ED: well developed and NAD HEENT Reports moist mucous membranes Neck supple and no JVD Resp normal respiratory effort and clear to auscultation bilaterally Cardio Rate: regular rate Rhythm: regular rhythm GI soft to palpation, non-tender and non-distended Extremity normal to inspection General Extremety ED: Negative for deformity or edema General Extremity: Negative for deformity or edema Neuro CN's II-XII intact bilaterally Jaswinder Coma Scale: document GCS findings Spontaneous Obeys Commands Incomprehensible 12 Sensorium / Orientation: alert Motor Exam: general weakness Psych mental status grossly normal NIHSS NIHSS Initial: 1a Level of Consciousness: 0 2 Best Gaze (If aphasic, use reflexive mvmts.): 0 3 Visual: 0 4 Facial Palsy: 0 5 Motor Arm Right (UN = amputation/fusion): 1 5 Motor Arm Left: 1 6 Motor Leg Right: 1 6 Motor Leg Left: 1 8 Sensory (Aphasia/stupor=0 or 1, coma=2): 0 9 Best Language: 2 10 Dysarthria (mute, coma=2, intubated=UN): 2 Total Score: 8 MDM MDM MDM Narrative Medical decision making narrative: Differential diagnosis includes stroke, intracranial bleeding, electrolyte abnormality, seizure with postictal state, substance abuse, coagulopathy, pneumonia, and conversion disorder. CT scan of the brain will be obtained to assess for stroke and intracranial bleeding. CTA of the head and neck will be obtained to assess for large vessel occlusion and carotid and vertebral stenosis. CBC will be obtained to assess for leukocytosis and anemia. Basic metabolic profile will be obtained to assess for electrolyte abnormality and renal function. High-sensitivity troponin will be obtained to assess for cardiac ischemia. PT was INR and PTT will be obtained to assess for coagulopathy. Chest x-ray will be obtained to assess for pneumonia and pneumothorax. EKG will be obtained to assess for cardiac dysrhythmia and cardiac ischemia. Lab Data Attestation: I reviewed the patient's lab results. Lab results narrative: CBC was reviewed and was within normal limits. Basic metabolic profile was reviewed. Potassium was slightly low at 3.2. The remainder was within normal limits. High-sensitivity troponin was reviewed and was normal at less than 3. PT was INR and PTT were reviewed and were within normal limits. Labs: Laboratory Results - last 24 hr 04/12/24 08:10 WBC 7.4 RBC 4.26 Hgb 12.6 Hct 37.7 MCV 88.5 MCH 29.6 MCHC 33.4 RDW Std Deviation 40.4 RDW Coeff of Silke 12.6 Plt Count 228 MPV 9.9 Immature Gran % (Auto) 0.100 Neut % (Auto) 55.3 Lymph % (Auto) 38.6 [place] % (Auto) 5.5 Eos % (Auto) 0.1 Baso % (Auto) 0.4 Absolute Neuts (auto) 4.1 Absolute Lymphs (auto) 2.85 Nucleated RBC % 0 PT 14.4 INR 1.1 APTT 29.2 Sodium 139 Potassium 3.2 L Chloride 107 Carbon Dioxide 27.0 Anion Gap 5 BUN 6 L Creatinine 0.70 Estim Creat Clear Calc 134.47 Est GFR (MDRD) Af Amer 121 Est GFR (MDRD) Non-Af 100 BUN/Creatinine Ratio 8.5 L Glucose 82 Calcium 8.8 Troponin I High Sens < 3 L Serum , Qual NEGATIVE Radiography Chest X-Ray - ED: 1 View, Read by ED Physician, Read by Radiologist and No Acute Disease Diagnostic Testing: Clinical Impression(s) from Imaging Studies Brain CT 04/12/24 07:29 IMPRESSION: No acute findings in the head/brain. Nonstandard communication protocol initiated. Electronically Signed: Jere Valenzuela MD at 7:40 EDT , ADDENDUM: 04/12/24 0750 IMPRESSION: No acute findings in the head/brain. Nonstandard communication protocol initiated. N.B. : The above Results were Read Back by Jere Valenzuela MD to Joseph Delgado DO, and understanding confirmed on 04/12/2024 07:43:19 (ET). Electronically Signed: Jere Valenzuela MD at 7:40 EDT , Chest X-Ray 04/12/24 07:29 IMPRESSION: No radiographic evidence of acute cardiopulmonary disease. Electronically Signed: Marcus West MD at 9:14 EDT , Head/Neck CTA 04/12/24 07:29 IMPRESSION: 1. No evidence of intracranial great vessel stenosis. 2. Significant motion artifacts in the region of the neck somewhat limiting the examination. 3. No definite stenosis of the common or internal carotid arteries. 4. Patent but suboptimally visualized vertebral arteries. 5. Extensive collateral veins in the left axilla and upper chest. Stenosis of the subclavian vein cannot be excluded although flow is seen to the region of the superior vena cava. N.B. : The above Results were Read Back by Marcus West MD to Joseph Delgado DO, and understanding confirmed on 04/12/2024 08:18:25 (ET). Electronically Signed: Marcus West MD at 8:22 EDT , ADDENDUM: 04/12/24 0829 IMPRESSION: 1. No evidence of intracranial great vessel stenosis. 2. Significant motion artifacts in the region of the neck somewhat limiting the examination. 3. No definite stenosis of the common or internal carotid arteries. 4. Patent but suboptimally visualized vertebral arteries. 5. Extensive collateral veins in the left axilla and upper chest. Stenosis of the subclavian vein cannot be excluded although flow is seen to the region of the superior vena cava. N.B. : The above Results were Read Back by Marcus West MD to Joseph Delgado DO, and understanding confirmed on 04/12/2024 08:18:25 (ET). Electronically Signed: Marcus West MD at 8:22 EDT , CT scan of the brain was obtained. There is no acute intracranial abnormality. This was interpreted by the radiologist and was also independently reviewed by myself. CTA of the head and neck was obtained. There is no large vessel occlusion. There is no carotid or vertebral stenosis. There is motion artifact. This was interpreted by the radiologist was also independently reviewed by myself. Portable 1 view chest x-ray was obtained. On my independent interpretation, lung garrison are clear. There is normal cardiac silhouette. Bony thorax is normal. There is no acute process noted. Radiologist also interpreted the x-ray and agrees. EKG Initial EKG: Attestation: I personally reviewed and interpreted this EKG as follows: Interpretation: Sinus Rhythm (68) and No Acute Injury Pattern Comments: EKG was obtained. On my independent interpretation, it showed a normal sinus rhythm with a rate of 68. WA interval, QRS interval, and QTc intervals were all normal. Trinity was normal. There are no acute ST or T wave changes. Prior EKG tracings: not available for review Prior: No Prior Management Discussion w/another healthcare provider: Hospitalist, Rehabilitation Services Director and Radiologist Treatment and Re-Evaluation Narrative: Patient was evaluated by stroke neurologist from [facility]. They recommended admission to the hospital for further evaluation. Patient is not a candidate for thrombolytics. Patient was given aspirin. On discussion with the stroke neurologist, patient stated that her last known well was 2030 last evening. 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 Patient also states that she had a heart condition at that time. Stroke neurologist recommended obtaining echocardiogram for further evaluation of this. Case was discussed with the hospitalist. He will admit the patient to his service. Patient understood and was agreeable with the plan. All questions were answered. 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
--- NOTE | 2024-04-12 07:39 | NURSING ---
[id number] STROKE ALERT CALLED. ETA IS 5 MIN
--- NOTE | 2024-04-12 07:41 | NURSING ---
NO OLD EKGS
--- NOTE | 2024-04-12 08:11 | NURSING ---
[id number] [facility] neurology zoomed in. pt with mod diff getting words and sentences out. c/o rt side being numb. pt with b/l limb ataxia but able to write with pen with rt affected hand normally. pt reported feeling weakness and hot last night at work and progressed to diff speaking this am at end of shift.
[2024-04-12 08:20] LABS: Absolute Lymphocyte Count 2.85 X10^3/uL (0.83-4.51); Absolute Neutrophil Count 4.1 X10^3/uL (2.0-7.7); Basophil# 0.03 X10^3/uL; Basophil% 0.4 % (0-1); Eosinophil# 0.01 X10^3/uL; Eosinophils% 0.1 % (0-5); Hematocrit 37.7 % (37-47); Hemoglobin 12.6 g/dL (12.0-15.0); Lymphocyte # 2.85 X10^3/ul (0.83-4.51); Lymphocyte % 38.6 % (19-41); Mean Corp Hgb Conc 33.4 g/dL (32-36); Mean Corpuscular Hgb 29.6 pg (27.0-32.0); Mean Corpuscular Volume 88.5 fL (81-99); Mean Platelet Vol. 9.9 fl (6.2-12.0); Monocyte# 0.41 X10^3/uL; Monocyte% 5.5 % (0-10); NRBC Flagged by Analyzer 0 % (0-5); Neutrophil # 4.08 X10^3/uL (2.7-7.7); Neutrophil % 55.3 % (47-70); Platelet Count 228 K/mm3 (150-450); RBC Distribution Width CV 12.6 % (11.6-14.6); RBC Distribution Width SD 40.4 fl (35.1-43.9); Red Blood Count 4.26 M/mm3 (4.2-5.4); White Blood Count 7.4 K/mm3 (4.4-11.0)
[2024-04-12 08:29] LABS: International Normalized Ratio 1.1; Prothrombin Time (Protime)PT. 14.4 SECONDS (11.7-14.9)
[2024-04-12 08:30] LABS: Partial Thromboplast Time 29.2 Seconds (24.1-36.2)
--- NOTE | 2024-04-12 08:40 | NURSING ---
DR CHRISTINA DIAZ
[2024-04-12 08:48] LABS: Anion Gap 5 (5-15); BUN 6 mg/dL (7-18); BUN/Creat Ratio 8.5 RATIO (10-20); Calcium,Total 8.8 mg/dL (8.5-10.1); Chloride 107 mmol/L (98-107); EST Glomerular Filtration Rate 100 mL/min (>60); Est Glom Filt Rate - Afr Amer 121 mL/min (>60); Estimated Creatinine Clearance 134.47 ml/min; Glucose 82 mg/dL (74-106); Potassium 3.2 mmol/L (3.5-5.1); Sodium Level 139 mmol/L (136-145); Troponin-I HS < 3 pg/mL (3.0-54.0)
--- NOTE | 2024-04-12 08:50 | ED.RN ---
pt communicating via pen and paper with no difficulty with coordination. pt also complete dysphagia screen with no problems with coordination of bringing the cup to her mouth or with swallowing. pt refusing to chew up baby aspirin at this time.
[2024-04-12 08:53] LABS: Internal QC Validated? YES +Cl - CLEAR BKGD; Pregnancy, Serum, hCG Quali. NEGATIVE Negative; Record Kit Lot#, Serum Preg. HCG0000735774
--- NOTE | 2024-04-12 09:11 | ED.RN ---
rn to bedside to complete NIH, pt sitting in bed texting on phone- holding phone with right hand and texting with index finger of left hand with no complications.
--- NOTE | 2024-04-12 09:19 | ED.RN ---
this rn just complete and [facility] when patient completed limb ataxia for left hand she was unable to meet her nose- attempted to do it with her left thumb. [facility] complete- rn charting and patient is texting on phone with left index finger
--- NOTE | 2024-04-12 09:43 | MRI_ITS ---
STUDY: MRI BRAIN WITHOUT CONTRAST REASON FOR EXAM: Female, 32 years old. aphasia TECHNIQUE: Standardized multiplanar fat and water weighted pulse sequences were obtained. COMPARISON: Head CT dated April 12, 2024 FINDINGS: Normal size of the ventricles and extra-axial spaces for the patient''s age. There are a limited number of small white matter hyperintensities in the subcortical regions of the bilateral frontal lobes, consistent with mild chronic white matter ischemic changes. There is no evidence for recent intracranial ischemia or other cause of cytotoxic edema on diffusion weighted imaging (DWI). Normal T2* images of the brain without demonstrated susceptibility artifact. There is no demonstrated hemosiderin stain. There are no demyelinating plagues of the supratentorial brain, brainstem or cerebellum. There are no findings suspicious for multiple sclerosis (MS). Normal bilateral basal ganglia. Normal thalami. There is no extra-axial fluid accumulation. Normal flow voids within the major intracranial circulation suggesting patency by spin echo criteria. Normal sella turcica, pituitary gland, infundibular stalk, optic chiasm and hypothalamus. Normal tectal plate and pineal gland. Normal midbrain, gretel and medulla. Normal cerebellum. Normal basal cisterns. Normal bilateral temporal bones. Normal bilateral internal auditory canals. No demonstrated orbital abnormality, within the constraints of a routine brain study. Normal visualized paranasal sinuses. Normal calvarium and skull base. Normal visualized soft tissue structures. Normal visualized upper cervical spine. MRI/Brain without Contrast IMPRESSION: 1. Minimal chronic ischemic changes of the brain, as described above. 2. No acute infarct or intracranial hemorrhage. Electronically Signed: Hany Barrett MD at 11:28 EDT ,
--- NOTE | 2024-04-12 11:35 | PCM.HP.STD ---
HPI - General General Date of Admission: 04/12/24 Date of Service: 04/12/24 Chief Complaint: aphasia HPI Narrative JULIANA TINSLEY, is a 32 F who presents with acute onset of aphasia, right-sided weakness and paresthesias. Symptoms began around 5-5 30 after she was coming off her third shift. Patient is able only to speak some words and some of it is incomprehensible. She stated that she had similar when she is had focal seizures once when she had eclampsia about 3 years ago and then again 2 years ago. She indicates that she was incontinent. [facility]LY [facility] Medical History Endometriosis Crohn's disease Medical History unable to obtain Home Medications ?Medication ?Instructions ?Recorded ?Last Taken ?Type acetaminophen 500 mg capsule 500 mg PO Q6H PRN pain 04/12/24 04/12/24 History diazepam 10 mg tablet 5 - 10 mg PO TID PRN 04/12/24 04/12/24 History doxepin 75 mg capsule 75 mg PO DAILY 04/12/24 Unknown History loperamide 2 mg capsule 2 mg PO PRN 04/12/24 Unknown History modafinil 200 mg tablet 400 mg PO DAILY 04/12/24 04/12/24 History promethazine 12.5 mg tablet 12.5 mg PO BID PRN PRN nausea 04/12/24 Unknown History semaglutide (weight loss) 2.4 2.4 mg subcut QWEEK 04/12/24 Unknown History mg/0.75 mL subcutaneous pen injector (Wegovy) Allergy/AdvReac Type Severity Reaction Status Date / Time benzocaine (From Cetacaine) Allergy Severe Anaphylaxis Verified 04/12/24 08:59 butamben (From Cetacaine) Allergy Severe Anaphylaxis Verified 04/12/24 08:59 methylprednisolone (From Allergy Severe Anaphylaxis Verified 04/12/24 08:59 Solu-Medrol) tetracaine (From Cetacaine) Allergy Severe Anaphylaxis Verified 04/12/24 08:59 midazolam (From Versed) Allergy Unknown Other Verified 04/12/24 08:59 metoclopramide (From Reglan) AdvReac Unknown Other Verified 04/12/24 08:59 Surgical History unable to obtain Social History Smoking Status: Light Smoker (<10/day) ROS ROS Narrative All review of systems were negative except as mentioned above in the history of present illness and the other review of systems. Vital Signs Vital Signs Vital Signs: 04/12/24 07:40 04/12/24 07:59 04/12/24 08:05 Temperature 36.5 C L 36.5 C L Temperature Source Temporal Temporal Pulse Rate 68 61 Respiratory Rate 16 12 Blood Pressure 120/63 120/63 Blood Pressure Mean 82 82 Blood Pressure Source Blood Pressure Position Blood Pressure Location Pulse Ox 99 Oxygen Delivery Method Room Air Room Air Room Air 04/12/24 08:26 04/12/24 08:44 04/12/24 09:00 Temperature Temperature Source Pulse Rate 63 65 61 Respiratory Rate 13 14 13 Blood Pressure 129/76 H 92/71 131/78 H Blood Pressure Mean 93 78 95 Blood Pressure Source Blood Pressure Position Blood Pressure Location Pulse Ox 96 97 97 Oxygen Delivery Method Room Air Room Air Room Air 04/12/24 09:00 04/12/24 09:46 04/12/24 10:00 Temperature 37.0 C 36.7 C Temperature Source Oral Pulse Rate 67 68 63 Respiratory Rate 11 L 14 14 Blood Pressure 131/78 H 131/78 H 119/80 Blood Pressure Mean 95 95 93 Blood Pressure Source Monitor Blood Pressure Position Sitting Blood Pressure Location Left Arm Pulse Ox 94 99 100 Oxygen Delivery Method Room Air Room Air Weight Weight: 106 kg Body Mass Index (BMI) 40.1 Physical Exam Const alert and no apparent distress Constitutional Narrative: Patient only able to mumble some words. Though is able to write her thoughts on a pen and notepad. HEENT normocephalic, head/scalp atraumatic, hearing grossly normal bilaterally and moist oral mucous membranes Resp normal respiratory effort, no retractions, no use of accessory muscles and clear to auscultation bilaterally Cardio regular rate, regular rhythm, S1 normal heart sound and S2 normal heart sound GI normal to inspection, nondistended, normoactive bowel sounds, soft to palpation, non-tender and non-distended Extremity normal to inspection and full ROM Neuro Neuro Narrative: Moves all extremities but does have some giveaway weakness. Able to lift her legs up without difficulty but then immediately drop some down with evaluation. Then is unable to do a [id number] with the leg that she just read bilaterally. Sensorium / Orientation: awake and alert Psych affect normal Results Lab / Micro Data Attestation: I reviewed the patient's lab results. 04/12/24 08:10 04/12/24 08:10 Labs: Laboratory Results - last 24 hr 04/12/24 08:10: WBC 7.4, RBC 4.26, Hgb 12.6, Hct 37.7, MCV 88.5, MCH 29.6, MCHC 33.4, RDW Std Deviation 40.4, RDW Coeff of Silke 12.6, Plt Count 228, MPV 9.9, Immature Gran % (Auto) 0.100, Neut % (Auto) 55.3, Lymph % (Auto) 38.6, [place] % (Auto) 5.5, Eos % (Auto) 0.1, Baso % (Auto) 0.4, Absolute Neuts (auto) 4.1, Absolute Lymphs (auto) 2.85, Nucleated RBC % 0, PT 14.4, INR 1.1, APTT 29.2, Sodium 139, Potassium 3.2 L, Chloride 107, Carbon Dioxide 27.0, Anion Gap 5, BUN 6 L, Creatinine 0.70, Estim Creat Clear Calc 134.47, Est GFR (MDRD) Af Amer 121, Est GFR (MDRD) Non-Af 100, BUN/Creatinine Ratio 8.5 L, Glucose 82, Calcium 8.8, Troponin I High Sens < 3 L, Serum , Qual NEGATIVE Imaging Radiology Impression Brain CT 04/12/24 07:29 IMPRESSION: No acute findings in the head/brain. Nonstandard communication protocol initiated. Electronically Signed: Jere Valenzuela MD at 7:40 EDT , ADDENDUM: 04/12/24 0750 IMPRESSION: No acute findings in the head/brain. Nonstandard communication protocol initiated. N.B. : The above Results were Read Back by Jere Valenzuela MD to Joseph Delgado DO, and understanding confirmed on 04/12/2024 07:43:19 (ET). Electronically Signed: Jere Valenzuela MD at 7:40 EDT , Chest X-Ray 04/12/24 07:29 IMPRESSION: No radiographic evidence of acute cardiopulmonary disease. Electronically Signed: Marcus West MD at 9:14 EDT , Head/Neck CTA 04/12/24 07:29 IMPRESSION: 1. No evidence of intracranial great vessel stenosis. 2. Significant motion artifacts in the region of the neck somewhat limiting the examination. 3. No definite stenosis of the common or internal carotid arteries. 4. Patent but suboptimally visualized vertebral arteries. 5. Extensive collateral veins in the left axilla and upper chest. Stenosis of the subclavian vein cannot be excluded although flow is seen to the region of the superior vena cava. N.B. : The above Results were Read Back by Marcus West MD to Joseph Delgado DO, and understanding confirmed on 04/12/2024 08:18:25 (ET). Electronically Signed: Marcus West MD at 8:22 EDT , ADDENDUM: 04/12/24 0829 IMPRESSION: 1. No evidence of intracranial great vessel stenosis. 2. Significant motion artifacts in the region of the neck somewhat limiting the examination. 3. No definite stenosis of the common or internal carotid arteries. 4. Patent but suboptimally visualized vertebral arteries. 5. Extensive collateral veins in the left axilla and upper chest. Stenosis of the subclavian vein cannot be excluded although flow is seen to the region of the superior vena cava. N.B. : The above Results were Read Back by Marcus West MD to Joseph Delgado DO, and understanding confirmed on 04/12/2024 08:18:25 (ET). Electronically Signed: Marcus West MD at 8:22 EDT , Brain MRI 04/12/24 09:43 IMPRESSION: 1. Minimal chronic ischemic changes of the brain, as described above. 2. No acute infarct or intracranial hemorrhage. Electronically Signed: Hany Barrett MD at 11:28 EDT , Assessment & Plan Assessment/Plan (1) Expressive aphasia: PLAN: Plan Aphasia Patient states that this summer when she has had focal seizures when she had eclampsia 3 years ago and then again 2 years ago. She indicates that she was incontinent but I see no record of that otherwise. Exam is inconsistent. Patient able to communicate well with writing and tries doing some short raid type behavior to communicate but only able to speak some difficult to understand words. Check MRI, EEG. Patient asked her [employer] work to come in. Her boss asked me what was going on with her. I told her boss that due to hip I cannot dive all that information. She asked if we could do drug and alcohol test, I asked if there was concerns, she said that not she is aware of but at higher up at the facility recommended that. As I am concerned that some of this may be fictitious/conversion disorder, I will order talk screen and alcohol level. Charges/Coding Visit Charges Inpatient E&M: 51072 Init Hosp L3
--- NOTE | 2024-04-12 12:09 | NEURO.CONS ---
Assessment and Plan: Neuro Assessment/Plan JULIANA TINSLEY is a 32 F with a past medical history of post cardiomyopathy focal seizures presented with aphasia and right side weakness. CTA head and neck with no acute finding. MRI with no acute stroke, she is complaining of new headache. lower concern for meningoencephalitis as she has no fever/leukocytosis or menengial signs. she mentation seems largerly intat as she is able to fully communicate through writing Plan: Routine EEG would obtain an MRV or CT venogram to w.o venous thrombosis PT/OT and speech therapy HPI Consult Data Date of Consult: 04/12/24 HPI Narrative HPI Narrative: JULIANA TINSLEY, is a 32 F who presents with aphasia and right side weakness. she was seen by tele stroke. she was not a candidate for lytics as she was outside the window. CTA showed no acute stroke. [facility] Medical History Endometriosis Crohn's disease Medical History unable to obtain Home Medications ?Medication ?Instructions ?Recorded ?Last Taken ?Type acetaminophen 500 mg capsule 500 mg PO Q6H PRN pain 04/12/24 04/12/24 History diazepam 10 mg tablet 5 - 10 mg PO TID PRN 04/12/24 04/12/24 History doxepin 75 mg capsule 75 mg PO DAILY 04/12/24 Unknown History loperamide 2 mg capsule 2 mg PO PRN 04/12/24 Unknown History modafinil 200 mg tablet 400 mg PO DAILY 04/12/24 04/12/24 History promethazine 12.5 mg tablet 12.5 mg PO BID PRN PRN nausea 04/12/24 Unknown History semaglutide (weight loss) 2.4 2.4 mg subcut QWEEK 04/12/24 Unknown History mg/0.75 mL subcutaneous pen injector (Wegovy) Allergy/AdvReac Type Severity Reaction Status Date / Time benzocaine (From Cetacaine) Allergy Severe Anaphylaxis Verified 04/12/24 08:59 butamben (From Cetacaine) Allergy Severe Anaphylaxis Verified 04/12/24 08:59 methylprednisolone (From Allergy Severe Anaphylaxis Verified 04/12/24 08:59 Solu-Medrol) tetracaine (From Cetacaine) Allergy Severe Anaphylaxis Verified 04/12/24 08:59 midazolam (From Versed) Allergy Unknown Other Verified 04/12/24 08:59 metoclopramide (From Reglan) AdvReac Unknown Other Verified 04/12/24 08:59 Surgical History unable to obtain Social History Smoking Status: Light Smoker (<10/day) Vital Signs Vital Signs Vital Signs: 04/12/24 07:40 04/12/24 07:59 04/12/24 08:05 Temperature 97.7 F L 97.7 F L Temperature Source Temporal Temporal Pulse Rate 68 61 Respiratory Rate 16 12 Blood Pressure 120/63 120/63 Blood Pressure Mean 82 82 Blood Pressure Source Blood Pressure Position Blood Pressure Location Pulse Ox 99 Oxygen Delivery Method Room Air Room Air Room Air 04/12/24 08:26 04/12/24 08:44 04/12/24 09:00 Temperature Temperature Source Pulse Rate 63 65 61 Respiratory Rate 13 14 13 Blood Pressure 129/76 H 92/71 131/78 H Blood Pressure Mean 93 78 95 Blood Pressure Source Blood Pressure Position Blood Pressure Location Pulse Ox 96 97 97 Oxygen Delivery Method Room Air Room Air Room Air 04/12/24 09:00 04/12/24 09:46 04/12/24 10:00 Temperature 98.6 F 98.1 F Temperature Source Oral Pulse Rate 67 68 63 Respiratory Rate 11 L 14 14 Blood Pressure 131/78 H 131/78 H 119/80 Blood Pressure Mean 95 95 93 Blood Pressure Source Monitor Blood Pressure Position Sitting Blood Pressure Location Left Arm Pulse Ox 94 99 100 Oxygen Delivery Method Room Air Room Air Weight Weight: 106 kg Body Mass Index (BMI) 40.1 EEG Results Procedure Details EEG Procedure Details: JULIANA TINSLEY is a 32 year old F with a past medical history of , who presents for evaluation of Electroencephalogram on DATE at TIME NIHSS NIHSS Nursing Documentation NIHSS Nursing Documentation: NIHSS: Ischemic Stroke/TIA Start: 04/12/24 09:43 Text: For PCU Patients: NIH and Neuro Check every 4 Status: Active hours, PRN and with change in RN caregiver. Freq: [id number] Protocol: Activity Type Activity Date Activity User E-sign Co-sign Detail Recorded Client Recorded Date Recorded By Document 04/12/24 10:00 NB desktop 04/12/24 10:45 NB 04/12/24 10:00 NIH Stroke Scale [NIHSS] A score of 0 is normal or asymptomatic . Total possible score is 42. Inpatient: RN or Physician to activate a stroke alert for onset of new stroke symptoms or with NIHSS increase >/= 3 points. Following change in neurological status, NIHSS will be performed per physician order or more frequently PRN. -1a. Level of Consciousness Alert; keenly responsive -1b. LOC Questions Answers BOTH questions correctly. -1c. LOC Commands Performs both tasks correctly . -2. Best Gaze Normal -3. Visual No visual loss -4. Facial Palsy Normal symmetrical movements -5a. Left Arm No drift; arm holds 90 (or 45 ) degrees for full 10 seconds -5b. Right Arm No drift; arm holds 90 (or 45 ) degrees for full 10 seconds -6a. Left Leg No drift; leg holds 30-degree position for full 5 seconds -6b. Right Leg No drift; leg holds 30-degree position for full 5 seconds -7. Limb Ataxia Present in 1 limb -8. Sensory Mild-to- moderate sensory loss; -9. Best Language Severe aphasia; -10. Dysarthria Mild-to- moderate dysarthria; -11. Extinction and Inattention No abnormality -Total 5 Query Text:A score of 0 is normal or asymptomatic. Total possible score is 42 . ED: Notify Physician for NIHSS increase by > / = 3 points. Inpatient: RN or Physician to activate a stroke alert for NIHSS increase of > / = 3 points. Coma Scale [Assess] -Eye Opening Spontaneous -Motor Obeys Commands -Verbal Oriented [Total] -Coma Scale Total 15 Physical Exam Neuro Neuro Narrative: awake alert oriented x3 slow dysarthric speech but able to communicate through writing able to name( through writing) complains of sever headache EMOI face symmetric mild right hemiparesis drift in the arm and leg Lab / Micro Data 04/12/24 08:10 04/12/24 08:10 Labs: Laboratory Results - last 24 hr 04/12/24 08:10: WBC 7.4, RBC 4.26, Hgb 12.6, Hct 37.7, MCV 88.5, MCH 29.6, MCHC 33.4, RDW Std Deviation 40.4, RDW Coeff of Silke 12.6, Plt Count 228, MPV 9.9, Immature Gran % (Auto) 0.100, Neut % (Auto) 55.3, Lymph % (Auto) 38.6, [place] % (Auto) 5.5, Eos % (Auto) 0.1, Baso % (Auto) 0.4, Absolute Neuts (auto) 4.1, Absolute Lymphs (auto) 2.85, Nucleated RBC % 0, PT 14.4, INR 1.1, APTT 29.2, Sodium 139, Potassium 3.2 L, Chloride 107, Carbon Dioxide 27.0, Anion Gap 5, BUN 6 L, Creatinine 0.70, Estim Creat Clear Calc 134.47, Est GFR (MDRD) Af Amer 121, Est GFR (MDRD) Non-Af 100, BUN/Creatinine Ratio 8.5 L, Glucose 82, Calcium 8.8, Troponin I High Sens < 3 L, Serum , Qual NEGATIVE Imaging Radiology Impression Brain CT 04/12/24 07:29 IMPRESSION: No acute findings in the head/brain. Nonstandard communication protocol initiated. Electronically Signed: Jere Valenzuela MD at 7:40 EDT , ADDENDUM: 04/12/24 0750 IMPRESSION: No acute findings in the head/brain. Nonstandard communication protocol initiated. N.B. : The above Results were Read Back by Jere Valenzuela MD to Joseph Delgado DO, and understanding confirmed on 04/12/2024 07:43:19 (ET). Electronically Signed: Jere Valenzuela MD at 7:40 EDT , Chest X-Ray 04/12/24 07:29 IMPRESSION: No radiographic evidence of acute cardiopulmonary disease. Electronically Signed: Marcus West MD at 9:14 EDT , Head/Neck CTA 04/12/24 07:29 IMPRESSION: 1. No evidence of intracranial great vessel stenosis. 2. Significant motion artifacts in the region of the neck somewhat limiting the examination. 3. No definite stenosis of the common or internal carotid arteries. 4. Patent but suboptimally visualized vertebral arteries. 5. Extensive collateral veins in the left axilla and upper chest. Stenosis of the subclavian vein cannot be excluded although flow is seen to the region of the superior vena cava. N.B. : The above Results were Read Back by Marcus Wset MD to Joseph Delgado DO, and understanding confirmed on 04/12/2024 08:18:25 (ET). Electronically Signed: Marcus West MD at 8:22 EDT , ADDENDUM: 04/12/24 0829 IMPRESSION: 1. No evidence of intracranial great vessel stenosis. 2. Significant motion artifacts in the region of the neck somewhat limiting the examination. 3. No definite stenosis of the common or internal carotid arteries. 4. Patent but suboptimally visualized vertebral arteries. 5. Extensive collateral veins in the left axilla and upper chest. Stenosis of the subclavian vein cannot be excluded although flow is seen to the region of the superior vena cava. N.B. : The above Results were Read Back by Marcus West MD to Joseph Delgado DO, and understanding confirmed on 04/12/2024 08:18:25 (ET). Electronically Signed: Marcus West MD at 8:22 EDT , Brain MRI 04/12/24 09:43 IMPRESSION: 1. Minimal chronic ischemic changes of the brain, as described above. 2. No acute infarct or intracranial hemorrhage. Electronically Signed: Hany Barrett MD at 11:28 EDT Reading Location ID and State: [facility] / [place] , Service support , Active Medications Active Medications Active Medications: Current Medications Generic Name Dose Route Start Last Admin Trade Name Freq PRN Reason Stop Dose Admin Acetaminophen 500 mg 04/12/24 09:43 Acetaminophen 500 Mg Tablet PO Q6H PRN pain 1-10 Enoxaparin Sodium 40 mg 04/12/24 10:00 Enoxaparin 40 Mg/0.4 Ml Syringe SC DAILY PACHECO Labetalol HCl 20 mg 04/12/24 07:29 Labetalol (Compound) 20 Mg/4 Ml Syringe IV 04/13/24 07:29 X1 PRN BLOOD PRESSURE Loperamide HCl 2 mg 04/12/24 10:00 Loperamide 2 Mg Capsule PO DAILY PRN DIARRHEA Ondansetron HCl 4 mg 04/12/24 09:43 Ondansetron 4 Mg/2 Ml Vial IV Q8H PRN PRN NAUSEA/VOMITING Sodium Chloride 10 - 40 ml 04/12/24 10:54 0.9% Saline Lock 10 Ml Syringe IV UD PRN SALINE FLUSH
--- NOTE | 2024-04-12 12:45 | CASEMGMT ---
RN CM Face to Face with patient for initial transition planning/care coordination assessment. RN CM introduced self and role at [facility]. Patient lying in bed, alert and oriented. Patient willing to participate in assessment and is able to answer all questions appropriately with pen and paper. Care providers, pharmacy, and demographics verified. PCP: Maddie Cardoza Specialists: uLís, pain; Eileen, [employer] Preferred Pharmacy: [facility], [facility] retail Insurance: [employer] Prescription Benefit: yes Living Will/HPOA: none LNOK: sister Living Arrangements: Patient lives alone in a 1st floor apartment with no steps to enter. Patient is independent at home. Transportation: public DME/HHC: Patient denies DME in the home. No previous HHC or SNF. Patient wishes to discharge home with outpatient therapy, script placed on chart for hospitalist to sign at discharge. Patient states she has no further needs or concerns at this time. CM to follow for discharge planning needs that may arise. Disposition Plan: Patient to discharge home with outpatient therapy, family support, and follow-up plans in place. Suzette RIGGS, RN, CM
--- NOTE | 2024-04-12 12:57 | DCINST_ITS ---
Discharge Instructions Diet Discharge Diet: No restrictions Activity Return to work on:: 04/16/24 (or until cleared by Renzo Taylor) Follow Up Care Test Results: Test results from this visit will be discussed in further detail at your follow- up appointment, if applicable. Discharge Plan Admission Admit Date/Time: 04/12/24 08:40 Primary Reason for Your Visit: aphagia. conversion disorder. Attending Provider: Joseph Cleveland [facility] Providers: Saul Padilla; Lyle Mcclellan; Aydee Weber; Karla Boland; Zoey Cooley; Collins Rodriguez; Salome Miller; Dat Dooley; Horacio Castaneda; Karen Nolan; Bridger Brown; Tiffanie Saravia; Renee Titus; Ankur Sow; Jimmy Gamboa; Jennie Kan; Manoj Sin; Awilda Berkowitz; Sacha Wilson; Vania Craft; Bernabe Roldan; Chase Tobin; MIRNA MARQUES; Brendan Armenta; Linette Muhammad Instructions Additional Instructions / Restrictions: Follow up with Renzo Taylor this coming week. Discharge Orders/Prescriptions Prescriptions: Continued diazepam 10 mg tablet 5 - 10 mg PO TID PRN loperamide 2 mg capsule 2 mg PO PRN Rx Instructions: MAX 8/DAILY doxepin 75 mg capsule 75 mg PO DAILY modafinil 200 mg tablet 400 mg PO DAILY promethazine 12.5 mg tablet 12.5 mg PO BID PRN PRN (Reason: nausea) Wegovy 2.4 mg/0.75 mL pen injector 2.4 mg subcut QWEEK acetaminophen 500 mg capsule 500 mg PO Q6H PRN (Reason: pain) [facility] - Disposition Disposition (needs filled in before D/C Order can be placed): Home, Self Care
[2024-04-12 13:45] LABS: Alcohol, Blood (Medical)-Serum < 3.0 mg/dL
[2024-04-12] MEDS: Acetaminophen 500 MG Tablet PO ×2 (15:42→23:52)
[2024-04-12 19:21] LABS: Amphetamine Urine VISTA NEGATIVE (<1000 ng/mL); Barbiturate Urine VISTA NEGATIVE (< 200 ng/mL); Benzodiazepine Urine VISTA POSITIVE (< 200 ng/mL); Cocaine Urine VISTA NEGATIVE (< 300 ng/mL); Ecstacy Urine VISTA NEGATIVE (< 500 ng/mL); Methadone Urine VISTA NEGATIVE (< 300 ng/mL); PCP Urine VISTA NEGATIVE (< 25 ng/mL); THC Urine VISTA NEGATIVE (< 50 ng/mL); Vista UDS pH Range 5
[2024-04-13 00:05] VITALS: BMI 40.1
[2024-04-13 03:00] VITALS: BP 110/75; PULSE 63; RESP 16; TEMP 36.6; O2SAT 100
[2024-04-13 07:30] VITALS: O2SAT 97
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
[2024-04-13] MEDS: proMETHazine 25 MG Tablet 12.5 MG PO (08:46)
[2024-04-13 09:04] VITALS: BP 129/78; PULSE 73; RESP 14; TEMP 36.4; O2SAT 100
[2024-04-13 09:09] LABS: Cholesterol 162 mg/dL (200); High Density Lipoprotein 36 mg/dL; Triglycerides 118 mg/dL; Very Low Density Lipoprotein 24 mg/dL (5-40)
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
== END 2024-04-13 11:34 | disposition home or self-care (01) ==
LOC: ED 09:09 → PCU 09:30
PROVIDERS: Emergency Provider Emergency Medicine
DX: R47.01 Aphasia (principal); K50.90 Crohn's disease, unspecified, without complications; Z68.41 Body mass index [BMI] 40.0-44.9, adult; R53.1 Weakness; Z79.899 Other long term (current) drug therapy; R20.2 Paresthesia of skin; F17.200 Nicotine dependence, unspecified, uncomplicated
CPT/HCPCS: 36415; 70450; 70496; 70498; 70551; 71045; 80048; 80061; 80307; 80320; 84484; 84703; 85025; 85610; 85730; 92523; 92610; 93005; 95819; 97802; 99221; 99285; Q9957; Q9967; G0378; G0480

== ENCOUNTER 2024-06-11 08:40 | Emergency (ER) | payer BC, SELFPAY ==
[2024-06-11 08:42] VITALS: BP 136/96; PULSE 73; RESP 20; TEMP 36.2; O2SAT 100; BMI 38.3
--- NOTE | 2024-06-11 09:11 | ED.VIS.FEGU ---
HPI HPI - Female History of Present Illness Chief Complaint: Narrative Narrative: 32-year-old female presents with issues. She relates history that she is a G15, P5 that has not had a menstrual period since March, almost 3 months ago. She states that she was having regular menses prior to that. Last week she did a test that was positive, but [facility] and she states that it was negative at that time. She states that she did test prior to last weeks where they would be positive or faint. She is having symptoms of including nausea. Initially, she stated that she had no bleeding, but 2 weeks ago she may have had spotting that lasted for 1 wipe. She has history of Crohn disease as well but states that she has not had symptoms of her Crohn disease although she states that she has been nauseated. Additionally, she states that she has had problems with twin gestations that were not reportedly found which caused her to go septic. [facility] Medical History Endometriosis Crohn's disease Endometriosis Crohn's disease Home Medications ?Medication ?Instructions ?Recorded ?Last Taken ?Type cyclobenzaprine 5 mg tablet 5 mg PO Q8H PRN muscle spasm 09/05/23 Unknown History diazepam 10 mg tablet 10 mg PO Q8H PRN muscle spasm 09/05/23 Unknown History doxepin 50 mg capsule 50 mg PO DAILY 09/05/23 Unknown History doxepin 6 mg tablet 6 mg PO DAILY 09/05/23 Unknown History modafinil 200 mg tablet 200 mg PO DAILY 09/05/23 Unknown History promethazine 25 mg tablet 25 mg PO TID PRN nausea and 10/25/23 Unknown Rx vomiting #14 tabs cyclobenzaprine 10 mg tablet 10 mg PO TID PRN Muscle Spasm #20 11/17/23 Unknown Rx TABLETS hydrocodone-acetaminophen 5-325mg 1 tab PO Q4H PRN PRN Pain 2 days 11/17/23 Unknown Rx 5mg-325mg #10 TABLETS naproxen 500 mg tablet (Naprosyn) 500 mg PO BID PRN pain #20 tabs 11/17/23 Unknown Rx hydrocodone-acetaminophen 5-325mg 1 tab PO Q4H PRN PRN Pain 2 days 12/05/23 Unknown Rx 5mg-325mg #10 TABLETS ondansetron 4 mg disintegrating 4 mg PO Q8H PRN PRN Nausea #10 tabs 12/05/23 Unknown Rx tablet ondansetron 4 mg disintegrating 4 mg PO Q8H PRN PRN Nausea #10 tabs 02/22/24 Unknown Rx tablet prednisone 20 mg tablet 40 mg (2 x 20 mg) PO DAILY 7 days 02/22/24 Unknown Rx #14 TABLETS acetaminophen 500 mg capsule 500 mg PO Q6H PRN pain 04/12/24 04/12/24 History diazepam 10 mg tablet 5 - 10 mg PO TID PRN 04/12/24 04/12/24 History doxepin 75 mg capsule 75 mg PO DAILY 04/12/24 Unknown History loperamide 2 mg capsule 2 mg PO PRN 04/12/24 Unknown History modafinil 200 mg tablet 400 mg PO DAILY 04/12/24 04/12/24 History promethazine 12.5 mg tablet 12.5 mg PO BID PRN PRN nausea 04/12/24 Unknown History semaglutide (weight loss) 2.4 2.4 mg subcut QWEEK 04/12/24 Unknown History mg/0.75 mL subcutaneous pen injector ([facility]) Allergy/AdvReac Type Severity Reaction Status Date / Time methylprednisolone (From Allergy Severe Anaphylaxis Verified 06/11/24 08:47 Solu-Medrol) midazolam (From Versed) Allergy Unknown Other Verified 06/11/24 08:47 benzocaine (From Cetacaine) Allergy Anaphylaxis Verified 06/11/24 08:47 butamben (From Cetacaine) Allergy Anaphylaxis Verified 06/11/24 08:47 methylprednisolone sodium Allergy Anaphylaxis Verified 06/11/24 08:47 succinate (From Solu-Medrol) metoclopramide (From Reglan) Allergy Other Verified 06/11/24 08:47 tetracaine (From Cetacaine) Allergy Anaphylaxis Verified 06/11/24 08:47 midazolam HCl (From Versed) AdvReac Other Verified 06/11/24 08:47 Social History Smoking Status: Light Smoker (<10/day) ROS ROS ED ROS Narrative Constitutional: No fever, no chills. HEENT: No sore throat. No neck pain. No loss of vision. No rhinorrhea. Cardiovascular: No chest pain. No palpitations. No pedal edema. Respiratory: No cough, no shortness of breath. Abdominal: No abdominal pain. Positive nausea. Genitourinary: No dysuria. No hematuria. Vaginal spotting 2 weeks ago. Musculoskeletal: No myalgias. No arthralgias. Neurologic: No headaches. No dizziness. No lightheadedness. Skin: No rash. No change in color. Psychiatric: No depression. No anxiety. EXAM Physical Exam Narrative Exam Narrative: Afebrile. Vital signs noted. HEENT: Normocephalic. Atraumatic. PERRL, EOMI. Neck soft and supple. No point tenderness or step off. Cardiovascular: Regular rate and rhythm. No murmurs, rubs, or gallops appreciated. Respiratory: No tachypnea. Lungs clear to auscultation bilaterally. Gastrointestinal: Abdomen soft, nontender, with normoactive bowel sounds. No rebound or guarding. Chaperoned pelvic examination reveals no blood in the vaginal vault, no cervical motion tenderness, no vaginal discharge. No adnexal mass or tenderness. Neurological: Awake. Alert. Nonfocal, nonlateralizing. Skin: No rash. Normal color. No pallor. Musculoskeletal: No pedal edema. Full range of motion extremities. Const Vital Signs: 06/11/24 08:42 06/11/24 10:42 06/11/24 12:00 Temperature 97.1 F L Temperature Source Temporal Pulse Rate 73 76 84 Respiratory Rate 20 H 16 18 Blood Pressure 136/96 H 128/99 H 132/99 H Blood Pressure Mean 109 108 110 Pulse Ox 100 98 98 Oxygen Delivery Method Room Air Room Air Room Air [facility] Narrative Medical decision making narrative: Differential diagnosis includes ectopic versus intrauterine versus false positive home test. Comprehensive workup was pursued. Initially before ordering a pelvic ultrasound, I will get a qualitative serum . I reviewed her laboratory work and her WBC count is normal at 9.9 with hemoglobin normal at 13.0, hematocrit 40.7, platelet count normal at 204. Electrolyte panel is significant for a chloride of 108 which I think is nonspecific, normal BUN of 8, normal creatinine of 0.66, LFTs are grossly unremarkable. Quantitative beta-hCG is less than 1. In review of other laboratory work, she has had consistently low quant's of less than 1. ABO Rh/blood type is O+. Urinalysis is negative for infection. I do not feel antibiotics are indicated. Patient complained to the RN of pain so she was administered Tylenol. When I told the patient that her test was negative, she wanted to know if it was both urine and blood. I told her that I have performed the most sensitive blood test which is the quantitative beta-hCG which is less than 1. Hence, she assumed that she had miscarried, but I am unsure as to if it was just a false positive on the home test that she was taking. She states that she has not had menses since March, for the last 2 months. I am unsure as to the cause of her amenorrhea, but I do not feel that she needs an ultrasound to rule out ectopic , and I also have low concern for ovarian torsion as well based on her physical examination and history. She states that she has had negative test before then found out she was 20 weeks . She was also concerned about becoming septic from an ectopic , but I reassured her that her test here is negative today, and there are no signs of sepsis, no tachycardia, no fever, and she has a normal white count. I feel she can be discharged to follow-up with the [facility] on-call for no doc. Disposition is discharged home in stable condition. History & Record Review Discussion w/independent historian: Patient Lab Data Attestation: I reviewed the patient's lab results. Labs: Laboratory Results - last 24 hr 06/11/24 06/11/24 10:20 10:44 WBC 9.9 RBC 4.53 Hgb 13.0 Hct 40.7 MCV 89.8 MCH 28.7 MCHC 31.9 L RDW Std Deviation 41.5 RDW Coeff of Silke 12.6 Plt Count 204 MPV 11.0 Immature Gran % (Auto) 0.300 Neut % (Auto) 52.7 Lymph % (Auto) 38.2 [place] % (Auto) 5.6 Eos % (Auto) 2.7 Baso % (Auto) 0.5 Absolute Neuts (auto) 5.2 Absolute Lymphs (auto) 3.77 Nucleated RBC % 0 Sodium 141 Potassium 3.9 Chloride 108 H Carbon Dioxide 26.0 Anion Gap 7 BUN 8 Creatinine 0.66 Estim Creat Clear Calc 139.08 Est GFR (MDRD) Af Amer 131 Est GFR (MDRD) Non-Af 108 BUN/Creatinine Ratio 12.0 Glucose 79 Calcium 9.0 Total Bilirubin 1.00 AST 22 ALT 24 Alkaline Phosphatase 64 Total Protein 7.6 Albumin 4.1 Globulin 3.5 Albumin/Globulin Ratio 1.2 HCG, Quant < 1 Urine Color Yellow Urine Clarity Clear Urine pH 6.0 Ur Specific [place] 1.020 Urine Protein Negative Urine Glucose (UA) Normal Urine Ketones 5 H Urine Occult Blood Negative Urine Nitrite Negative Urine Bilirubin Negative Urine Urobilinogen Normal Ur Leukocyte Esterase 25 H Urine RBC 0 SEEN Urine WBC 0-5 SEEN Ur Squamous Epith Cells 0-5 SEEN Urine Bacteria 0 SEEN Urine Mucus 0 SEEN Blood Type O POSITIVE Discharge Plan Triage Chief Complaint: ED Provider: Nito Nur Dx/Rx/DC Orders Clinical Impression: Amenorrhea Instructions: ED Amenorrhea Prescriptions: No Action promethazine 25 mg tablet 25 mg PO TID PRN (Reason: nausea and vomiting) Qty: 14 0RF hydrocodone-acetaminophen [hydrocodone-acetaminophen] 5-325 mg tablet 1 tab PO Q4H PRN PRN (Reason: Pain) 2 Days Qty: 10 0RF ondansetron [ondansetron] 4 mg tablet,disintegrating 4 mg PO Q8H PRN PRN (Reason: Nausea) Qty: 10 0RF diazepam 10 mg tablet 10 mg PO Q8H PRN (Reason: muscle spasm) modafinil 200 mg tablet 200 mg PO DAILY doxepin 50 mg capsule 50 mg PO DAILY doxepin 6 mg tablet 6 mg PO DAILY cyclobenzaprine 5 mg tablet 5 mg PO Q8H PRN (Reason: muscle spasm) cyclobenzaprine [cyclobenzaprine] 10 mg tablet 10 mg PO TID PRN (Reason: Muscle Spasm) Qty: 20 0RF hydrocodone-acetaminophen [hydrocodone-acetaminophen] 5-325 mg tablet 1 tab PO Q4H PRN PRN (Reason: Pain) 2 Days Qty: 10 0RF naproxen [Naprosyn] 500 mg tablet 500 mg PO BID PRN (Reason: pain) Qty: 20 0RF ondansetron 4 mg tablet,disintegrating 4 mg PO Q8H PRN PRN (Reason: Nausea) Qty: 10 0RF prednisone 20 mg tablet 40 mg PO DAILY 7 Days Qty: 14 0RF diazepam 10 mg tablet 5 - 10 mg PO TID PRN loperamide 2 mg capsule 2 mg PO PRN Rx Instructions: MAX 8/DAILY doxepin 75 mg capsule 75 mg PO DAILY modafinil 200 mg tablet 400 mg PO DAILY promethazine 12.5 mg tablet 12.5 mg PO BID PRN PRN (Reason: nausea) Wegovy 2.4 mg/0.75 mL pen injector 2.4 mg subcut QWEEK acetaminophen 500 mg capsule 500 mg PO Q6H PRN (Reason: pain) Primary Care Provider: Leticia Bergman Referrals: Natasha Johnson MD [Med Staff - Active Staff] - As soon as possible Leticia Bergman, 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
[2024-06-11 10:26] LABS: Bacteria 0 SEEN /hpf (None Seen); Mucous, Urine 0 SEEN /hpf (<or=2+); Red Blood Cells-Urine 0 SEEN /hpf (0-5)
[2024-06-11 10:27] LABS: Color, Urine Yellow (Yellow); Glucose, Dipstick Normal (Normal); Ketone-Dipstick 5 mg/dl (Negative); Leukocyte Esterase-Dipstick 25 /ul (Negative); Nitrite-Dipstick Negative (Negative); Occult Blood-Urine Negative /ul (Negative); Protein-Dipstick Negative (Negative); Urine Bilirubin Dipstick Negative (Negative); Urine Clarity Clear (Clear); Urine Urobilinogen Normal (Normal)
[2024-06-11] MEDS: proMETHazine 25 MG/ML Syringe 12.5 MG IM (10:31)
[2024-06-11 10:37] LABS: Squamous Epithelial Cells - UA 0-5 SEEN /hpf (5-10); White Blood Cells 0-5 SEEN /hpf (0-5)
[2024-06-11 10:42] VITALS: BP 128/99; PULSE 76; RESP 16; O2SAT 98
[2024-06-11 11:07] LABS: Absolute Lymphocyte Count 3.77 X10^3/uL (0.83-4.51); Absolute Neutrophil Count 5.2 X10^3/uL (2.0-7.7); Basophil# 0.05 X10^3/uL; Basophil% 0.5 % (0-1); Eosinophil# 0.27 X10^3/uL; Eosinophils% 2.7 % (0-5); Hematocrit 40.7 % (37-47); Lymphocyte # 3.77 X10^3/ul (0.83-4.51); Lymphocyte % 38.2 % (19-41); Mean Corp Hgb Conc 31.9 g/dL (32-36); Mean Corpuscular Hgb 28.7 pg (27.0-32.0); Mean Corpuscular Volume 89.8 fL (81-99); Monocyte# 0.55 X10^3/uL; Monocyte% 5.6 % (0-10); NRBC Flagged by Analyzer 0 % (0-5); Neutrophil # 5.21 X10^3/uL (2.7-7.7); Neutrophil % 52.7 % (47-70); Platelet Count 204 K/mm3 (150-450); RBC Distribution Width CV 12.6 % (11.6-14.6); RBC Distribution Width SD 41.5 fl (35.1-43.9); Red Blood Count 4.53 M/mm3 (4.2-5.4); White Blood Count 9.9 K/mm3 (4.4-11.0)
[2024-06-11 11:31] LABS: hCG Titer Quant., Serum < 1 mIU/mL (1-3)
[2024-06-11 12:00] VITALS: BP 132/99; PULSE 84; RESP 18; O2SAT 98
[2024-06-11 12:10] LABS: ALB/GLOB Ratio 1.2 RATIO (0.9-2.4); AST(SGOT) 22 U/L (15-37); Alanine Aminotransfer ALT/SGPT 24 U/L (13-56); Albumin, Serum 4.1 g/dL (3.2-5.0); Alkaline Phosphatase 64 U/L (45-117); Anion Gap 7 (5-15); BUN 8 mg/dL (7-18); Chloride 108 mmol/L (98-107); Creatinine, Serum 0.66 mg/dL (0.55-1.02); EST Glomerular Filtration Rate 108 mL/min (>60); Est Glom Filt Rate - Afr Amer 131 mL/min (>60); Estimated Creatinine Clearance 139.08 ml/min; Globulin 3.5 g/dL (2.2-4.2); Glucose 79 mg/dL (74-106); Potassium 3.9 mmol/L (3.5-5.1); Protein, Total 7.6 g/dL (6.4-8.2); Sodium Level 141 mmol/L (136-145)
[2024-06-11 12:42] VITALS: BP 132/99; PULSE 84; RESP 18; TEMP 36.2; O2SAT 98
== END 2024-06-11 12:43 | disposition home or self-care (01) ==
PROVIDERS: Emergency Provider Emergency Medicine; PCP Nurse Practitioner Family; Visit Provider Emergency Medicine
DX: N91.2 Amenorrhea, unspecified (principal); F17.200 Nicotine dependence, unspecified, uncomplicated
CPT/HCPCS: 80053; 81001; 84702; 85025; 86900; 86901; 96372; 99282

== ENCOUNTER 2024-06-30 04:12 | Emergency (ER) | payer BC, SELFPAY ==
[2024-06-30 04:13] VITALS: BP 122/69; PULSE 78; RESP 16; TEMP 36.1; O2SAT 98; BMI 38.7
--- NOTE | 2024-06-30 05:03 | EX.ED.DYSGE1 ---
HPI History of Present Illness Chief Complaint: Allergic Reaction Informant: patient Narrative Narrative: Patient is a 32-year-old female with past medical history of endometriosis and Crohn's disease. She states that she works at [employer] and this evening she does not know what she had been exposed to but after being at work developed facial swelling and flushing and eye redness and tearing. Secondary to concern for an allergic exposure she presents for evaluation. She states she wears glasses but denies contact lens use. She denies any known sick contacts and states that prior to going into work she has not had any sick symptoms. She does report that after leaving the facility she feels like her symptoms are beginning to slowly improve [facility] Medical History Endometriosis Crohn's disease Endometriosis Crohn's disease Home Medications ?Medication ?Instructions ?Recorded ?Last Taken ?Type doxepin 6 mg tablet 6 mg PO DAILY PRN QHS 09/05/23 Unknown History promethazine 25 mg tablet 25 mg PO TID PRN nausea and 10/25/23 Unknown Rx vomiting #14 tabs ondansetron 4 mg disintegrating 4 mg PO Q8H PRN PRN Nausea #10 tabs 12/05/23 Unknown Rx tablet acetaminophen 500 mg capsule 500 mg PO Q6H PRN pain 04/12/24 04/12/24 History diazepam 10 mg tablet 15 mg PO TID PRN 04/12/24 04/12/24 History doxepin 75 mg capsule 75 mg PO DAILY 04/12/24 Unknown History loperamide 2 mg capsule 2 mg PO PRN 04/12/24 Unknown History modafinil 200 mg tablet 400 mg PO DAILY 04/12/24 04/12/24 History semaglutide (weight loss) 2.4 2.4 mg subcut QWEEK 04/12/24 Unknown History mg/0.75 mL subcutaneous pen injector ([facility]) epinastine 0.05 % eye drops 1 drp EACH EYE BID PRN allergic 06/30/24 Unknown Rx symptoms #5 mL prednisone 20 mg tablet 40 mg (2 x 20 mg) PO DAILY 5 days 06/30/24 Unknown Rx #10 tabs Allergy/AdvReac Type Severity Reaction Status Date / Time methylprednisolone (From Allergy Severe Anaphylaxis Verified 06/30/24 04:13 Solu-Medrol) midazolam (From Versed) Allergy Unknown Other Verified 06/30/24 04:13 benzocaine (From Cetacaine) Allergy Anaphylaxis Verified 06/30/24 04:13 butamben (From Cetacaine) Allergy Anaphylaxis Verified 06/30/24 04:13 methylprednisolone sodium Allergy Anaphylaxis Verified 06/30/24 04:13 succinate (From Solu-Medrol) metoclopramide (From Reglan) Allergy Other Verified 06/30/24 04:13 tetracaine (From Cetacaine) Allergy Anaphylaxis Verified 06/30/24 04:13 midazolam HCl (From Versed) AdvReac Other Verified 06/30/24 04:13 Social History Smoking Status: Current every day smoker tobacco type: cigarettes ROS ROS ED Constitutional Constitutional ED: Denies chills or fever(s) Eyes Eyes: Reports other Details: Positive eye redness and tearing ; Denies blurry vision or change in vision ENT ENT ED: Reports rhinorrhea; Denies sore throat Cardiovascular Cardiovascular: Denies chest pain Respiratory/Chest Respiratory/Chest: Reports dyspnea; Denies cough Gastrointestinal Gastrointestinal: Denies abdominal pain, diarrhea, nausea or vomiting Genitourinary Genitourinary ED: Denies dysuria Musculoskeletal Musculoskeletal: Denies myalgias Integumentary Reports rash Neurologic Neurologic: Denies headache(s) Hematologic/Lymphatic Hematologic/Lymphatic: Denies easy bleeding or easy bruising Allergic/Immunologic Allergic/Immunologic ED: Denies mouth swelling, tongue swelling or urticaria EXAM Physical Exam Const Vital Signs: 06/30/24 04:13 06/30/24 05:08 Temperature 97 F L 98.6 F Temperature Source Oral Pulse Rate 78 80 Respiratory Rate 16 16 Blood Pressure 122/69 H 114/75 Blood Pressure Mean 86 88 Pulse Ox 98 100 Positive well nourished, well developed and obese General Appearance ED: well developed; Negative for pallor Nutritional Appearance: obese HEENT Reports moist mucous membranes HEENT Narrative: No tongue or lip swelling no oral lesions no airway edema or compromise No signs of infection noted in the posterior pharynx There is slight soft tissue swelling and flushing of the bilateral cheeks Eyes PERRL and EOMs intact bilaterally Eyes Narrative: There is bilateral scleral injection with increased tearing noted. Slight conjunctival fullness bilaterally as well No purulent discharge. No obvious retained foreign body General Eye ED: Negative for scleral icterus Neck supple Resp normal respiratory effort and clear to auscultation bilaterally Resp Narrative: No nasal flaring retractions tachypnea or accessory muscle use. No stridor noted Cardio regular rate and regular rhythm Extremity normal to inspection Neuro oriented x3, CN's II-XII intact bilaterally and no sensory deficits noted Sensorium / Orientation: alert Motor Exam: strength 5/5 throughout Psych mental status grossly normal Skin Skin Narrative: Patient has slight facial flushing and redness and edema consistent with her symptoms and potential of allergen exposure. However there is no urticarial lesions noted throughout the body General Skin Exam: Negative for jaundice or pallor MDM MDM MDM Narrative Medical decision making narrative: Patient arrived to the ER with stable vitals she did not have tongue or lip swelling or airway compromise going against anaphylaxis or angioedema. There is a possibility that her symptoms are viral in nature but she states that she was feeling perfectly normal prior to work and then after being exposed to a potential chemical felt facial swelling redness and eye redness and irritation. Her exam does correlate with this and is most likely consistent with acute allergic reaction and allergic conjunctivitis. She does not wear contact lenses there was no report or signs of trauma to the eye she does not have light sensitivity and therefore I have low concern for corneal abrasion. At this time as she is not showing anaphylaxis or angioedema or need for airway stabilization I do not feel she warrants epinephrine and as she is already taken oral Benadryl I will provide oral prednisone and Pepcid to continue the allergic reaction cocktail. However without signs of respiratory distress or anaphylaxis there is no need for further workup in the ER and she is otherwise safe for discharge History & Record Review Discussion w/independent historian: Patient Discharge Plan Triage Chief Complaint: Allergic Reaction ED Provider: Major Mejia Dx/Rx/DC Orders Clinical Impression: Allergic reaction, Acute allergic conjunctivitis, Crohn's disease, Endometriosis Instructions: ED General Allergic Reactions, ED Conjunctivitis, Allergic Prescriptions: New prednisone 20 mg tablet 40 mg PO DAILY 5 Days Qty: 10 0RF epinastine 0.05 % drops 1 drp EACH EYE BID PRN (Reason: allergic symptoms) Qty: 5 1RF No Action promethazine 25 mg tablet 25 mg PO TID PRN (Reason: nausea and vomiting) Qty: 14 0RF ondansetron [ondansetron] 4 mg tablet,disintegrating 4 mg PO Q8H PRN PRN (Reason: Nausea) Qty: 10 0RF doxepin 6 mg tablet 6 mg PO DAILY PRN (Reason: QHS) diazepam 10 mg tablet 15 mg PO TID PRN loperamide 2 mg capsule 2 mg PO PRN Rx Instructions: MAX 8/DAILY doxepin 75 mg capsule 75 mg PO DAILY modafinil 200 mg tablet 400 mg PO DAILY Wegovy 2.4 mg/0.75 mL pen injector 2.4 mg subcut QWEEK acetaminophen 500 mg capsule 500 mg PO Q6H PRN (Reason: pain) Primary Care Provider: Leticia Bergman Referrals: Leticia Bergman, INFORMATION RESOURCE CONSULTANT-C [Primary Care Provider] - Activity Restrictions/Additional Instructions: Your symptoms are consistent with allergic reaction. Continue Benadryl as needed but take the prednisone as directed for improved inflammatory/allergen control. Use the allergy eyedrops to control any further eye irritation and return to the ER should you have any further concerns Print Language: [place] Disposition Disposition: Home, Self Care Discharge Date/Time: 06/30/24 05:26
[2024-06-30] MEDS: predniSONE 20 MG Tablet 60 MG PO (05:07)
[2024-06-30] MEDS: Famotidine 20 MG Tablet 40 MG PO (05:07)
[2024-06-30 05:08] VITALS: BP 114/75; PULSE 80; RESP 16; TEMP 37; O2SAT 100
== END 2024-06-30 05:26 | disposition home or self-care (01) ==
PROVIDERS: Emergency Provider Emergency Medicine; PCP Nurse Practitioner Family; Visit Provider Emergency Medicine
DX: H10.13 Acute atopic conjunctivitis, bilateral (principal); X58.XXXA Exposure to other specified factors, initial encounter; F17.210 Nicotine dependence, cigarettes, uncomplicated
CPT/HCPCS: 99283

== ENCOUNTER 2024-08-06 02:13 | Emergency (ER) | payer BC, SELFPAY ==
[2024-08-06 02:15] VITALS: BP 118/55; PULSE 91; RESP 18; TEMP 36.6; O2SAT 100; BMI 38.2
--- NOTE | 2024-08-06 02:34 | EDS_ITS ---
HPI History of Present Illness Chief Complaint: Hypotension Informant: patient Narrative Narrative: 32-year-old female presenting to the emergency room out of concern for her blood pressure. Patient states that her blood pressure has been quite variable and sometimes her systolic is high and sometimes her diastolic is low as the lowest the diastolic has been has been 55. She sometimes feels lightheaded and the sensation that she may pass out. She states that she is but is anywhere from 6 weeks to 16 weeks.. She states that she has not had a regular period for several months. She was seen in the emergency department in June with concerns for and was concerned about an ectopic that was not being picked up on blood work and her hCG was less than 1. Patient is concerned that she may have ectopic , help, Crohn's exacerbation (which she states she has but does not have any current symptoms), anemia. She does not have an APPLICATION DEVELOPMENT CONSULTANT because she is very particular about who she sees and then when she wants to see has moved to [place]. She states that she has been 16 times with 5 births. O+ by chart review [facility] Medical History Endometriosis Crohn's disease Endometriosis Crohn's disease Home Medications ?Medication ?Instructions ?Recorded ?Last Taken ?Type doxepin 6 mg tablet 6 mg PO DAILY PRN QHS 09/05/23 Unknown History promethazine 25 mg tablet 25 mg PO TID PRN nausea and 10/25/23 Unknown Rx vomiting #14 tabs ondansetron 4 mg disintegrating 4 mg PO Q8H PRN PRN Nausea #10 tabs 12/05/23 Unknown Rx tablet acetaminophen 500 mg capsule 500 mg PO Q6H PRN pain 04/12/24 04/12/24 History diazepam 10 mg tablet 15 mg PO TID PRN 04/12/24 04/12/24 History doxepin 75 mg capsule 75 mg PO DAILY 04/12/24 Unknown History loperamide 2 mg capsule 2 mg PO PRN 04/12/24 Unknown History modafinil 200 mg tablet 400 mg PO DAILY 04/12/24 04/12/24 History semaglutide (weight loss) 2.4 2.4 mg subcut QWEEK 04/12/24 Unknown History mg/0.75 mL subcutaneous pen injector (Wegovy) epinastine 0.05 % eye drops 1 drp EACH EYE BID PRN allergic 06/30/24 Unknown Rx symptoms #5 mL prednisone 20 mg tablet 40 mg (2 x 20 mg) PO DAILY 5 days 06/30/24 Unknown Rx #10 tabs Allergy/AdvReac Type Severity Reaction Status Date / Time methylprednisolone (From Allergy Severe Anaphylaxis Verified 06/30/24 04:13 Solu-Medrol) midazolam (From Versed) Allergy Unknown Other Verified 06/30/24 04:13 benzocaine (From Cetacaine) Allergy Anaphylaxis Verified 06/30/24 04:13 butamben (From Cetacaine) Allergy Anaphylaxis Verified 06/30/24 04:13 methylprednisolone sodium Allergy Anaphylaxis Verified 06/30/24 04:13 succinate (From Solu-Medrol) metoclopramide (From Reglan) Allergy Other Verified 06/30/24 04:13 tetracaine (From Cetacaine) Allergy Anaphylaxis Verified 06/30/24 04:13 midazolam HCl (From Versed) AdvReac Other Verified 06/30/24 04:13 Social History Smoking Status: Former smoker ROS ROS ED ROS Narrative Lightheadedness fatigue Constitutional Constitutional ED: Denies chills or weight loss Eyes Eyes: Denies change in vision or diplopia ENT ENT ED: Denies ear pain, rhinorrhea or sore throat Cardiovascular Cardiovascular: Denies chest pain, orthopnea, palpitations or racing heartbeat Respiratory/Chest Respiratory/Chest: Denies cough, dyspnea or orthopnea Gastrointestinal Gastrointestinal: Reports constipation and nausea; Denies abdominal pain, diarrhea or vomiting Genitourinary Genitourinary ED: Denies dysuria, hematuria or urinary frequency Musculoskeletal Musculoskeletal: Denies arthralgias or myalgias Integumentary Denies abscess or rash Neurologic Neurologic: Denies headache(s) or weakness Psychiatric Psychiatric: Denies anxiety, depression, suicidal ideation or suicidal thoughts Endocrine Endocrinology: Denies polydipsia, polyphagia or polyuria Allergic/Immunologic Allergic/Immunologic ED: Denies mouth swelling, tongue swelling or urticaria EXAM Physical Exam Const Vital Signs: 08/06/24 02:15 08/06/24 02:22 Temperature 97.8 F Temperature Source Oral Pulse Rate 91 Respiratory Rate 18 Respiratory Effort Normal Non-Labored Respiratory Pattern Normal Blood Pressure 118/55 L Blood Pressure Mean 76 Pulse Ox 100 Oxygen Delivery Method Room Air Positive well nourished, well developed and obese General Appearance ED: well developed Nutritional Appearance: obese HEENT Reports normocephalic, head/scalp atraumatic and moist mucous membranes Eyes PERRL and EOMs intact bilaterally Neck no lymphadenopathy, supple and no JVD Resp normal respiratory effort and clear to auscultation bilaterally Cardio regular rate, regular rhythm and no murmurs GI normal to inspection, nondistended, normoactive bowel sounds and non-tender Palpation: soft Back/Spine no CVA tenderness and normal ROM Extremity normal to inspection General Extremety ED: Negative for edema General Extremity: Negative for edema Neuro oriented x3 and CN's II-XII intact bilaterally Sensorium / Orientation: alert Motor Exam: strength 5/5 throughout Psych mental status grossly normal Mood & Affect: Negative for depressed or tearful Skin no rashes or lesions noted and no wounds MDM MDM MDM Narrative Medical decision making narrative: Differential diagnosis includes first trimester dehydration electrolyte abnormalities ectopic White count is 10 hemoglobin 12.6 platelet count is 298 liver enzymes are normal BMP is within normal limits hCG levels 3737. I explained the above lab findings with the patient. Do not feel that she has help syndrome or preeclampsia. She is concerned that she is having an ectopic that is making her hypotensive. I explained to her that her diastolic blood pressure 55 with a normal systolic would not be characterized but the majority of physicians as hypotensive. Also explained to her that an ectopic should not make her hypotensive unless she is having hemorrhage especially early on in the . She states that I do not know whether or not she is hemorrhaging. I explained to her she is not having severe abdominal pain and her hemoglobin level is normal it would be rather odd to have severe internal hemorrhaging and also the fact that she is not hypotensive or having any vaginal bleeding or any other signs of ectopic . I explained to her that I could get an ultrasound in a few hours when ultrasound is available but I did not feel the need to be emergently called then. She would like to stay because she states that she needs an accurate date to tell what ever APPLICATION DEVELOPMENT CONSULTANT she is going to see how far along she is. I explained to her that even ultrasound dating in early is not very accurate she states that she believes that this is because she read her own ultrasound in the past and found things that the automation design engineer did not. In either case I can put in for a formal first trimester ultrasound to be done first thing this morning. If this is negative I believe the patient can be discharged home and she needs to schedule appointment with obstetrics and she states that she needs to research who she wants to see because she is very particular needs a high voltage electrician/GYN. The care of the patient be turned over to the oncoming morning physician for check of the ultrasound and final disposition History & Record Review Discussion w/independent historian: Patient Lab Data Attestation: I reviewed the patient's lab results. Labs: Laboratory Results - last 24 hr 08/06/24 03:15 WBC 10.0 RBC 4.29 Hgb 12.6 Hct 38.6 MCV 90.0 MCH 29.4 MCHC 32.6 RDW Std Deviation 41.9 RDW Coeff of Silke 12.9 Plt Count 298 MPV 10.6 Immature Gran % (Auto) 0.500 Neut % (Auto) 66.5 Lymph % (Auto) 28.0 Drew % (Auto) 4.5 Eos % (Auto) 0.0 Baso % (Auto) 0.5 Absolute Neuts (auto) 6.7 Absolute Lymphs (auto) 2.80 Nucleated RBC % 0 Sodium 139 Potassium 4.0 Chloride 109 H Carbon Dioxide 26.0 Anion Gap 4 L BUN 7 Creatinine 0.67 Estim Creat Clear Calc 136.76 Est GFR (MDRD) Af Amer 130 Est GFR (MDRD) Non-Af 107 BUN/Creatinine Ratio 10.5 Glucose 101 Calcium 9.3 Total Bilirubin 0.50 Direct Bilirubin 0.15 AST 19 ALT 20 Alkaline Phosphatase 62 Total Protein 7.4 Albumin 3.7 Globulin 3.7 HCG, Quant 3737 H Discharge Plan Triage Chief Complaint: Hypotension ED Provider: Santi Hankins Dx/Rx/DC Orders Clinical Impression: Anxiety about health, First trimester Prescriptions: No Action promethazine 25 mg tablet 25 mg PO TID PRN (Reason: nausea and vomiting) Qty: 14 0RF ondansetron [ondansetron] 4 mg tablet,disintegrating 4 mg PO Q8H PRN PRN (Reason: Nausea) Qty: 10 0RF doxepin 6 mg tablet 6 mg PO DAILY PRN (Reason: QHS) diazepam 10 mg tablet 15 mg PO TID PRN loperamide 2 mg capsule 2 mg PO PRN Rx Instructions: MAX 8/DAILY doxepin 75 mg capsule 75 mg PO DAILY modafinil 200 mg tablet 400 mg PO DAILY Wegovy 2.4 mg/0.75 mL pen injector 2.4 mg subcut QWEEK acetaminophen 500 mg capsule 500 mg PO Q6H PRN (Reason: pain) prednisone 20 mg tablet 40 mg PO DAILY 5 Days Qty: 10 0RF epinastine 0.05 % drops 1 drp EACH EYE BID PRN (Reason: allergic symptoms) Qty: 5 1RF Primary Care Provider: Leticia Bergman Referrals: Amberly Haas DO [Med Staff - Active Staff] - (If you want a local APPLICATION DEVELOPMENT CONSULTANT) Leticia Bergman, SKILLED NURSING FACILITIES PROFESSIONAL-C [Primary Care Provider] - Keep Flora appointment Activity Restrictions/Additional Instructions: I strongly recommend that you follow-up with APPLICATION DEVELOPMENT CONSULTANT as soon as possible for your Print Language: Guyanese
[2024-08-06 03:20] LABS: Absolute Neutrophil Count 6.7 X10^3/uL (2.0-7.7); Basophil# 0.05 X10^3/uL; Basophil% 0.5 % (0-1); Hematocrit 38.6 % (37-47); Hemoglobin 12.6 g/dL (12.0-15.0); Mean Corp Hgb Conc 32.6 g/dL (32-36); Mean Corpuscular Hgb 29.4 pg (27.0-32.0); Mean Platelet Vol. 10.6 fl (6.2-12.0); Monocyte# 0.45 X10^3/uL; Monocyte% 4.5 % (0-10); NRBC Flagged by Analyzer 0 % (0-5); Neutrophil # 6.66 X10^3/uL (2.7-7.7); Neutrophil % 66.5 % (47-70); Platelet Count 298 K/mm3 (150-450); RBC Distribution Width CV 12.9 % (11.6-14.6); RBC Distribution Width SD 41.9 fl (35.1-43.9); Red Blood Count 4.29 M/mm3 (4.2-5.4)
[2024-08-06 03:39] LABS: AST(SGOT) 19 U/L (15-37); Alanine Aminotransfer ALT/SGPT 20 U/L (13-56); Albumin, Serum 3.7 g/dL (3.2-5.0); Alkaline Phosphatase 62 U/L (45-117); Anion Gap 4 (5-15); BUN 7 mg/dL (7-18); BUN/Creat Ratio 10.5 RATIO (10-20); Bilirubin, Direct 0.15 mg/dL (0.00-0.30); Calcium,Total 9.3 mg/dL (8.5-10.1); Chloride 109 mmol/L (98-107); Creatinine, Serum 0.67 mg/dL (0.55-1.02); EST Glomerular Filtration Rate 107 mL/min (>60); Est Glom Filt Rate - Afr Amer 130 mL/min (>60); Estimated Creatinine Clearance 136.76 ml/min; Globulin 3.7 g/dL (2.2-4.2); Glucose 101 mg/dL (74-106); Protein, Total 7.4 g/dL (6.4-8.2); Sodium Level 139 mmol/L (136-145)
[2024-08-06 03:55] LABS: hCG Titer Quant., Serum 3737 mIU/mL (1-3)
--- NOTE | 2024-08-06 04:12 | US_ITS ---
INDICATION: first trimester concern for ectopic -- no bleeding -- no pain EXAMINATION: Ultrasound US OB Transvaginal TECHNIQUE: transvaginal dominal pelvic ultrasound was performed. Grayscale and color flow Doppler evaluation of the adnexa. COMPARISON: None. LMP: [Unknown Beta-hCG: Unknown FINDINGS: UTERUS: Anteverted uterus 8.4 x 4.5 x 5.3 cm. Normal myometrium. Unremarkable cervix.. RIGHT OVARY: 2.1 x 1.2 x 2.0 cm. Normal parenchymal appearance.. LEFT OVARY: 3.0 x 1.8 x 2.2 cm. 2.1 cm complex luteal cyst.. FREE FLUID: None. INTRAUTERINE GESTATIONAL SAC(s) (size/shape): Small fundal gestational sac with double decidual sign. Single normal yolk sac. No pole is seen. ESTIMATED GESTATION AGE: Mean Sec diameter 0.77 cm correlating with 5 weeks 4 days gestation estimated delivery date April 04, 2025. HEART MOTION: N/A PLACENTA: Not visualized due to age. SUBCHORIONIC HEMORRHAGE: Small bowel. Gestational hemorrhage involving less than 25% sac circumference, reference image 40. AMNIOTIC FLUID: Qualitatively normal. US/Transvaginal w/Preg US IMPRESSION: Single live intrauterine . Estimated gestational age is 5 weeks 4 days by mean sac diameter. Consider follow-up ultrasound in 2 weeks to assess pole.. Small perigestational hemorrhage involving less than 25% sac circumference. Normal ovaries with complex left luteal cyst. Electronically Signed: Bridger Mosqueda MD at 8:02 EDT ,
[2024-08-06 04:14] VITALS: PULSE 82; RESP 18; O2SAT 98
[2024-08-06 06:14] VITALS: BP 118/75; PULSE 84; RESP 20; O2SAT 99
[2024-08-06 08:20] VITALS: PULSE 73; O2SAT 100
[2024-08-06 08:24] VITALS: BP 146/79
== END 2024-08-06 08:51 | disposition home or self-care (01) ==
PROVIDERS: Emergency Provider Emergency Medicine; PCP Nurse Practitioner Family; Visit Provider Emergency Medicine
DX: O99.341 Other mental disorders complicating pregnancy, first trimester (principal); F41.9 Anxiety disorder, unspecified; Z87.891 Personal history of nicotine dependence; Z3A.00 Weeks of gestation of pregnancy not specified
CPT/HCPCS: 76817; 80048; 80076; 84702; 85025; 99282; A4216

== ENCOUNTER → 2024-09-02 | Outpatient (CLI) | payer BC, SELFPAY ==
[2024-09-02 17:18] LABS: Protein, Urine (Random) 15.5 mg/dL (<11.9); Protein:Creat Ratio 162 mg/g CRE (0-200)
--- OUTSIDE RECORDS SUMMARY | 2024-09-02 19:58 | XMS RPT_ITS | CCD ---
Author Organization [facility] Care Team Providers Care Economics Lecturer Name Role Phone PHYSICIAN, NONE Primary Care Physician Unavailab maría CONSTANTINO MD, DR BORREGO Attending Unavailabl e PHYSICIAN, NONE Primary Care Unavailable NAYA GODFREY CNP Attending Unavaila ble PHYSICIAN, NONE Primary Care Unavailable Allergies Allergy Classification Reported Allergen(s) Allergy Type Date of Onset Reaction(s) Facility (1 source) methylPREDNISolon e; Translations: [methylprednisolo ne] Drug Allergy [facility] (1 source) Midazolam; Translations: [midazolam] Drug Allergy [facility] Medications Current Medications Medication Drug Class(es) [...] Results Test Name Value Interpretation Reference Range Facility .Auto Diffon 09-06-2022 Basophil, Absolute 0.1 10 3/mcL Normal 0.0-0.2 [facility] Comment on above: Performed By: #### H CGQ, GFR, BMP #### [address] [address] Basophils/100 WBC (Bld) 0.8 % Normal 0.0-2.5 [facility] ([place]) Comment on above: Performed By: #### H CGQ, GFR, BMP #### [address] [address] Eosinophil, Absolute 0.2 10 3/mcL Normal 0.0-0.4 [facility] ([place]) Comment on above: Performed By: #### H CGQ, GFR, BMP #### [address] [address] Eosinophils/100 WBC (Bld) 2.0 % Normal 0.0-7.0 [facility] ([place] Comment on above: Performed By: #### H CGQ, GFR, BMP #### [address] [address] Lymphocyte, Absolute 3.2 10 3/mcL Normal 0.8-3.9 [facility] ([place]) Comment on above: Performed By: #### H CGQ, GFR, BMP #### [address] [address] Lymphocytes/100 WBC (Bld) 27.8 % Normal 10.0-50.0 [facility] ([place]) Comment on above: Performed By: #### H CGQ, GFR, BMP #### [address] [address] Monocyte, Absolute 0.6 10 3/mcL Normal 0.2-1.0 [facility] Comment on above: Performed By: #### H CGQ, GFR, BMP #### [address] [address] Monocytes/100 WBC (Bld) 5.0 % Normal 1.7-13.0 [facility] ([place]) Comment on above: Performed By: #### H CGQ, GFR, BMP #### [facility] [address] [address] Neutrophils/100 WBC (Bld) 64.4 % Normal 37.0-80.0 [facility] ([place]) Comment on above: Performed By: #### H CGQ, GFR, BMP #### [facility] [address] [address] .GFRon 09-06-2022 GFR Non- 74 ml/min/1.73sqm Normal [facility] ([place]) Comment on above: Result Comment: GFR Population mean for , Non- Americans Ages 20-29 = 116 mL/min/1.73 sq.m. Ages 30-39 = 107 mL/min/1.73 sq.m. Ages 40-49 = 99 mL/min/1.73 sq.m. Ages 50-59 = 93 mL/min/1.73 sq.m. Ages 60-69 = 85 mL/min/1.73 sq.m. Ages 70+ = 75 mL/min/1.73 sq.m. Chronic Kidney Disease: Less than 60 mL/min/1.73 square meters End Stage Renal Disease: Less than 15 mL/min/1.73 square meters Performed By: #### H CGQ, GFR, BMP #### [address] [address] GFR 90 ml/min/1.73sqm Normal [facility] ([place]) Comment on above: Result Comment: GFR Population mean for , Non- Americans Ages 20-29 = 116 mL/min/1.73 sq.m. Ages 30-39 = 107 mL/min/1.73 sq.m. Ages 40-49 = 99 mL/min/1.73 sq.m. Ages 50-59 = 93 mL/min/1.73 sq.m. Ages 60-69 = 85 mL/min/1.73 sq.m. Ages 70+ = 75 mL/min/1.73 sq.m. Chronic Kidney Disease: Less than 60 mL/min/1.73 square meters End Stage Renal Disease: Less than 15 mL/min/1.73 square meters Performed By: #### H CGQ, GFR, BMP #### [address] [address] .MDWon 09-06-2022 Monocyte Distribution Width 17.02 Normal 0.00-20.00 [facility] ([place]) Comment on above: Result Comment: For ED adult patients suspected of sepsis, MDW<=20.0 does not rule out sepsis or risk of sepsis Performed By: #### H CGQ, GFR, BMP #### [address] [address] .NEUABSon 09-06-2022 Neutrophil, Absolute 7.3 10 3/mcL High 2.9-6.2 [facility] ([place]) Comment on above: Performed By: #### H CGQ, GFR, BMP #### [address] [address] BMPon 09-06-2022 BUN/Creatinine Ratio 8 ratio Normal 7-27 [facility] Comment on above: Performed By: #### H CGQ, GFR, BMP #### [address] [address] Calcium [Mass/Vol] 9.0 mg/dL Normal 8.4-10.2 [facility] ([place]) Comment on above: Performed By: #### H CGQ, GFR, BMP #### [address] [address] Chloride [Moles/Vol] 100 mmol/L Normal 98-107 [facility] Comment on above: Performed By: #### H CGQ, GFR, BMP #### [address] [address] CO2 [Moles/Vol] 26 mmol/L Normal 22-29 [facility] Comment on above: Performed By: #### H CGQ, GFR, BMP #### [address] [address] Creatinine [Mass/Vol] 0.88 mg/dL Normal 0.55-1.02 [facility] ([place]) Comment on above: Performed By: #### H CGQ, GFR, BMP #### [address] [address] Electrolyte Balance 11.0 mEq/L Normal 4.0-15.0 [facility] ([place]) Comment on above: Performed By: #### H CGQ, GFR, BMP #### [address] [address] Glucose [Mass/Vol] 84 mg/dL Normal 70-105 [facility] ([place]) Comment on above: Performed By: #### H CGQ, GFR, BMP #### [address] [address] Potassium [Moles/Vol] 3.1 mmol/L Low 3.5-5.1 [facility] ([place]) Comment on above: Performed By: #### H CGQ, GFR, BMP #### [address] [address] Sodium [Moles/Vol] 137 mmol/L Normal 136-145 [facility] ([place] Comment on above: Performed By: #### H CGQ, GFR, BMP #### [address] [address] Urea nitrogen [Mass/Vol] 7 mg/dL Normal 7-18 [facility] ([place]) Comment on above: Performed By: #### H CGQ, GFR, BMP #### [address] [address] CBCon 09-06-2022 Erythrocyte distribution width (RBC) [Ratio] 16.8 % High 11.5-14.5 [facility] ([place]) Comment on above: Performed By: #### H CGQ, GFR, BMP #### [address] [address] Hematocrit (Bld) [Volume fraction] 35.9 % Low 37.0-47.0 [facility] ([place]) Comment on above: Performed By: #### H CGQ, GFR, BMP #### [address] [address] Hgb 11.7 G/dL Low 12.0-16.0 [facility] ([place]) Comment on above: Performed By: #### H CGQ, GFR, BMP #### [address] [address] MCH (RBC) [Entitic mass] 24.3 pg Low 27.0-31.2 [facility] ([place]) Comment on above: Performed By: #### H CGQ, GFR, BMP #### [address] [address] MCHC 32.6 G/dL Low 33.0-37.0 [facility] ([place]) Comment on above: Performed By: #### H CGQ, GFR, BMP #### [address] [address] MCV (RBC) [Entitic vol] 74.6 fL Low 80.0-94.0 [facility] ([place]) Comment on above: Performed By: #### H CGQ, GFR, BMP #### [address] [address] Platelet 245 10 3/mcL Normal 130-400 [facility] ([place]) Comment on above: Performed By: #### H CGQ, GFR, BMP #### [address] [address] Platelet mean volume (Bld) [Entitic vol] 8.1 fL Normal 7.4-10.4 [facility] ([place]) Comment on above: Performed By: #### H CGQ, GFR, BMP #### [address] [address] RBC 4.81 10 6/mcL Normal 4.20-5.40 [facility] ([place]) Comment on above: Performed By: #### H CGQ, GFR, BMP #### [address] [address] WBC 11.3 10 3/mcL High 4.6-10.8 [facility] ([place]) Comment on above: Performed By: #### H CGQ, GFR, BMP #### [facility] [address] [place], [place] [address] HCGQon 09-06-2022 hCG, quantitative <1.0 Normal [facility] ([place]) Comment on above: Result Comment: HCG Levels with Gestation age: 0.2- 1 week. . . . . . . . . . . . . . . 5 - 50 mIU/mL 1-2 weeks . . . . . . . . . . . . . . . 50 - 500 mIU/mL 2-3 weeks . . . . . . . . . . . . . . . 100 - 5,000 mIU/ml 3-4 weeks . . . . . . . . . . . . . . . 500 - 10,000 mIU/mL 4-5 weeks . . . . . . . . . . . . . . . 1,000 - 5,000 mIU/mL 5-6 weeks . . . . . . . . . . . . . . . 10,000 - 100,000 mIU/mL 6-8 weeks . . . . . . . . . . . . . . . 15,000 - 200,000 mIU/mL 2-3 months . . . . . . . . . . . . . . . 10,000 - 100,000 mIU/mL Performed By: #### H CGQ, GFR, BMP #### [facility] [address] [place], [place] [address] LABORATORYOrdered By: Cuong Delgado on 09-06-2022 Appearance (U) Clear (09/06/22 5:21 PM) Invalid Interpretation Code Clear AO Auto Urine SS Basophil, Absolute 0.1 103/mcL Invalid Interpretation Code 0.0 - 0.2 10^3/mcL AO Workflow SS Basophils/100 WBC (Bld) 0.8 % Invalid Interpretation Code 0.0 - 2.5 % AO Workflow SS Bilirubin Ql (U) Negative (09/06/22 5:21 PM) Invalid Interpretation Code Negative AO Auto Urine SS Color (U) Yellow (09/06/22 5:21 PM) Invalid Interpretation Code AO Auto Urine SS Eosinophil, Absolute 0.2 103/mcL Invalid Interpretation Code 0.0 - 0.4 10^3/mcL AO Workflow SS Eosinophils/100 WBC (Bld) 2.0 % Invalid Interpretation Code 0.0 - 7.0 % AO Workflow SS Erythrocyte distribution width (RBC) [Ratio] 16.8 % Invalid Interpretation Code 11.5 - 14.5 % AO Workflow SS Glucose Test strip (U) [Mass/Vol] Negative Invalid Interpretation Code Negativemg/dL AO Auto Urine SS HCG ( test) Ql Negative (09/06/22 5:21 PM) Invalid Interpretation Code AO Manual Urine SS Hematocrit (Bld) [Volume fraction] 35.9 % Invalid Interpretation Code 37.0 - 47.0 % AO Workflow SS Hemoglobin (Bld) [Mass/Vol] 11.7 G/dL Invalid Interpretation Code 12.0 - 16.0 G/dL AO Workflow SS Hemoglobin Auto test strip (U) [Mass/Vol] Negative (09/06/22 5:21 PM) Invalid Interpretation Code Negative AO Auto Urine SS Ketones Ql (U) Negative Invalid Interpretation Code Negativemg/dL AO Auto Urine SS Lymphocyte, Absolute 3.2 103/mcL Invalid Interpretation Code 0.8 - 3.9 10^3/mcL AO Workflow SS Lymphocytes/100 WBC (Bld) 27.8 % Invalid Interpretation Code 10.0 - 50.0 % AO Workflow SS MCH (RBC) [Entitic mass] 24.3 pg Invalid Interpretation Code 27.0 - 31.2 pg AO Workflow SS MCHC 32.6 G/dL Invalid Interpretation Code 33.0 - 37.0 G/dL AO Workflow SS MCV (RBC) [Entitic vol] 74.6 fL Invalid Interpretation Code 80.0 - 94.0 fL AO Workflow SS Monocyte distribution width Auto (Bld) [Entitic vol] 17.02 Invalid Interpretation Code 0.00 - 20.00 AO Workflow SS Comment on above: Result Comment: For ED adult patients suspected of sepsis, MDW<=20.0 does not rule out sepsis or risk of sepsis Monocyte, Absolute 0.6 103/mcL Invalid Interpretation Code 0.2 - 1.0 10^3/mcL AO Workflow SS Monocytes/100 WBC (Bld) 5.0 % Invalid Interpretation Code 1.7 - 13.0 % AO Workflow SS Neutrophil, Absolute 7.3 103/mcL Invalid Interpretation Code 2.9 - 6.2 10^3/mcL AO Workflow SS Neutrophils/100 WBC (Bld) 64.4 % Invalid Interpretation Code 37.0 - 80.0 % AO Workflow SS Platelet mean volume (Bld) [Entitic vol] 8.1 fL Invalid Interpretation Code 7.4 - 10.4 fL AO Workflow SS Platelets (Bld) [#/Vol] 245 103/mcL Invalid Interpretation Code 130 - 400 10^3/mcL AO Workflow SS test (u) int Not detected Invalid Interpretation Code AO Manual Urine SS RBC (Bld) [#/Vol] 4.81 106/mcL Invalid Interpretation Code 4.20 - 5.40 10^6/mcL AO Workflow SS UA Leuk Est Negative (09/06/22 5:21 PM) Invalid Interpretation Code Negative AO Auto Urine SS UA Nitrite Negative (09/06/22 5:21 PM) Invalid Interpretation Code Negative AO Auto Urine SS UA pH 6.0 (09/06/22 5:21 PM) Invalid Interpretation Code 5.0 - 8.0 AO Auto Urine SS UA Protein Negative Invalid Interpretation Code Negativemg/dL AO Auto Urine SS UA Spec Grav 1.020 (09/06/22 5:21 PM) Invalid Interpretation Code 1.015-1.025 AO Auto Urine SS UA Specimen Type Clean Catch (09/06/22 5:21 PM) Invalid Interpretation Code AO Auto Urine SS UA Urobilinogen 0.2 E.U./dL Invalid Interpretation Code 0.2-1.0E.U./dL AO Auto Urine SS WBC (Bld) [#/Vol] 11.3 103/mcL Invalid Interpretation Code 4.6 - 10.8 10^3/mcL AO Workflow SS LABORATORYOrdered By: Rommel Sheppard on 09-06-2022 Calcium [Mass/Vol] 9.0 mg/dL Invalid Interpretation Code 8.4 - 10.2 mg/dL AO ADM SS Chloride [Moles/Vol] 100 mmol/L Invalid Interpretation Code 98 - 107 mmol/L AO ADM SS CO2 [Moles/Vol] 26 mmol/L Invalid Interpretation Code 22 - 29 mmol/L AO ADM SS Creatinine [Mass/Vol] 0.88 mg/dL Invalid Interpretation Code 0.55 - 1.02 mg/dL AO ADM SS Electrolyte Balance 11.0 mEq/L Invalid Interpretation Code 4.0 - 15.0 mEq/L AO ADM SS Glucose [Mass/Vol] 84 mg/dL Invalid Interpretation Code 70 - 105 mg/dL AO ADM SS HCG Qn mIU/mL Invalid Interpretation Code AO ADM SS Potassium [Moles/Vol] 3.1 mmol/L Invalid Interpretation Code 3.5 - 5.1 mmol/L AO ADM SS Sodium [Moles/Vol] 137 mmol/L Invalid Interpretation Code 136 - 145 mmol/L AO ADM SS Urea nitrogen [Mass/Vol] 7 mg/dL Invalid Interpretation Code 7 - 18 mg/dL AO ADM SS Urea nitrogen/Creatinine [Mass ratio] 8 ratio Invalid Interpretation Code 7 - 27 ratio AO ADM SS LABORATORYOrdered By: SYSTEM SYSTEM on 09-06-2022 GFR 90 ml/min/1.73sqm Invalid Interpretation Code AO Chemistry S GFR Non- 74 ml/min/1.73sqm Invalid Interpretation Code AO Chemistry S PREGUon 09-06-2022 HCG ( test) Ql (U) Negative Normal [facility] ([place]) Comment on above: Performed By: #### U A, PREGU #### [place] [address] test (u) int Not detected Invalid Interpretation Code [facility] ([place]) Comment on above: Performed By: #### U A, PREGU #### [address] [address] UAon 09-06-2022 Color (U) Yellow Normal [facility] ([place]) Comment on above: Performed By: #### U A, PREGU #### [address] [address] Glucose (U) [Mass/Vol] Negative Normal Negative [facility] ([place]) Comment on above: Performed By: #### U A, PREGU #### [address] [address] Ketones Ql (U) Negative Normal Negative [facility] ([place]) Comment on above: Performed By: #### U A, PREGU #### [address] [address] UA Appear Clear Normal Clear [facility] ([place]) Comment on above: Performed By: #### U A, PREGU #### [address] [address] UA Blood Negative Normal Negative [facility] ([place]) Comment on above: Performed By: #### U A, PREGU #### [address] [address] UA Leuk Est Negative Normal Negative [facility] ([place]) Comment on above: Performed By: #### U A, PREGU #### [address] [address] UA Nitrite Negative Normal Negative [facility] ([place]) Comment on above: Performed By: #### U A, PREGU #### [address] [address] UA pH 6.0 Normal 5.0 - 8.0 [facility] ([place]) Comment on above: Performed By: #### U A, PREGU #### [address] [address] UA Protein Negative Normal Negative [facility] ([place]) Comment on above: Performed By: #### U A, PREGU #### [address] [address] UA Spec Grav 1.020 Normal 1.015-1.025 [facility] ([place]) Comment on above: Performed By: #### U A, PREGU #### [address] [address] UA Specimen Type Clean Catch Normal [facility] ([place]) Comment on above: Performed By: #### U A, PREGU #### [address] [address] UA Urobilinogen 0.2 E.U./dL Normal 0.2-1.0 [facility] ([place]) Comment on above: Performed By: #### U A, PREGU #### [address] [address] Urobilinogen (U) [Mass/Vol] Negative Normal Negative [facility] ([place]) Comment on above: Performed By: #### U A, PREGU #### [facility] [address] [place], [place] [address] Vital Signs Date Time Vital Sign Value Performing Clinician Angella caballero 09-06-2022 18:51-0400 Diastolic blood pressure 88 mm[Hg] DR SALIMA CONSTANTINO MD [facility] 09-06-2022 18:51-0400 Heart rate 90 /min DR SALIMA CONSTANTINO MD [facility] 09-06-2022 18:51-0400 Respiratory rate 18 /min DR SALIMA CONSTANTINO MD [facility] 09-06-2022 18:51-0400 Systolic blood pressure 140 mm[Hg] DR SALIMA CONSTANTINO MD [facility] 09-06-2022 17:04-0400 Body temperature 98.96 [degF] DR SALIMA CONSTANTINO MD [facility] 09-06-2022 17:04-0400 Diastolic blood pressure 90 mm[Hg] DR SALIMA CONSTANTINO MD [facility] 09-06-2022 17:04-0400 Heart rate 93 /min DR SALIMA CONSTANTINO MD [facility] 09-06-2022 17:04-0400 Respiratory rate 18 /min DR SALIMA CONSTANTINO MD [facility] 09-06-2022 17:04-0400 Systolic blood pressure 151 mm[Hg] DR SALIMA CONSTANTINO MD [facility] Encounters Encounter Date Encounter Type Care Provider Facility Start: 03-14-2023 ambulatory NAYA GODFREY CNP Facility:B Start: 09-06-2022 End: 09-06-2022 Emergency department patient visit DR SALIMA CONSTANTINO MD Facility:B Start: 09-06-2022 End: 09-06-2022 Emergency department patient visit DR SALIMA CONSTANTINO MD [facility] Payers Date Payer Category Payer Unknown [id number] 2022 Self-pay 1989 Unknown [id number] 1989 Unknown [id number] Social History Date Type Detail Facility Tobacco smoking status No Smoking Status Entered [facility] Sex Assigned At Female [facility] Functional Status Date Assessment Result Facility 09-06-2022 Functional Status Independent [facility] spital [facility] 09-06-2022 Functional Status Standard Safet y ID band on, Call device within reach, Bed in low position, Wheels locked, personal items within reach, Visitor at bedside, Safety level maintained [facility] Mental Status Date Assessment Result Facility 09-06-2022 Mental Status Orientation Oriented x 4 [facility] 09-06-2022 Mental Status [facility] Discharge instructions 09-06-2022 Note Date & Type [...] are taking other medicines. You may use jshp-hxq-dwicekd medicine as directed on the bottle to [...] Numbness in the groin or genital area [id number] [employer] [place] [address]. All rights reserved. This information is not intended as a substitute for professional medical care. Always follow your healthcare professional's instructions. Follow Up Care 09/06/2022 16:54:12 With:Follow up with primary care provider Address:Unknown When:2-4 days Comments:Take ibuprofen for pain, follow close with your doctor. Eat a high potassium diet including bananas, oranges, avocados, black beans, potatoes. Follow-up with your doctor [facility] Emergency department Discharge summary 09-06-2022 Note Date & Type Note Facility 09-06-2022 Emergency department Discharge summary Discharge Instructions Thank you for allowing [facility] to assist you with your healthcare needs. [...] may report side effects to FDA at 0-315-RZO-0470. What other drugs will affect ketorolac? Ask [...] drugs may affect ketorolac, including prescription and ofqy-giz-pklxsjy medicines, vitamins, and herbal products. Not all [...] to ensure that the information provided by [employer]. ('[employer]') is accurate, up-to-date, and complete, but no guarantee is made to that effect. Drug information contained herein may be time sensitive. [employer] information has been compiled for use by healthcare practitioners and consumers in the [place] and therefore [employer] does not warrant that uses outside of the [place] are appropriate, unless specifically indicated otherwise. [employer]'s drug information does not endorse drugs, diagnose patients or recommend therapy. Modern Messages drug information is an informational resource designed [...] effective or appropriate for any given patient. [facility] does not assume any responsibility for any aspect of healthcare administered with the aid of information [facility] provides. The information contained herein is not intended to cover all possible uses, directions, precautions, warnings, drug interactions, allergic reactions, or adverse effects. If you have questions about the drugs you are taking, check with your doctor, nurse or pharmacist. Copyright 6111-4748 [employer]. Version: .. Revision Date: 11/19/2020. lidocaine topical (LYE mehta joseph TOP i maria alejandra) AneCream, Bactine, Glydo, LidaMantle, Lidoderm, LidoRx, Medi-Quik Oxly, RadiaGuard, RectiCare, Regenecare NIELSEN Oxly, Solarcaine Cool Aloe What is the most [...] may report side effects to FDA at 6-210-IWT-2048. What other drugs will affect lidocaine topical? Medicine used on the skin is not likely to be affected by other drugs you use. But many drugs can interact with each other. Tell each of your health care providers about all medicines you use, including prescription and wvln-hak-aywoaca medicines, vitamins, and herbal products. Where can I get more information? Your pharmacist can provide more information about lidocaine topical. Remember, keep this and all other medicines out of the reach of children, never share your medicines with others, and use this medication only for the indication prescribed. Every effort has been made to ensure that the information provided by [employer] ('[employer]') is accurate, up-to-date, and complete, but no guarantee is made to that effect. Drug information contained herein may be time sensitive. [employer] information has been compiled for use by healthcare practitioners and consumers in the [place] and therefore [employer] does not warrant that uses outside of the [place] are appropriate, unless specifically indicated otherwise. Modern Messages drug information does not endorse drugs, diagnose patients or recommend therapy. Everyday.me drug information is an informational resource designed [...] effective or appropriate for any given patient. [employer] does not assume any responsibility for any aspect of healthcare administered with the aid of information [employer] provides. The information contained herein is not intended to cover all possible uses, directions, precautions, warnings, drug interactions, allergic reactions, or adverse effects. If you have questions about the drugs you are taking, check with your doctor, nurse or pharmacist. Copyright 0831-4313 [employer]. Version: 9.02. Revision Date: 03/21/2022. Education Materials [...] are taking other medicines. You may use dpac-qom-bwrtusk medicine as directed on the bottle to [...] Numbness in the groin or genital area [id number] [employer]. [address] [place] [address]. All rights reserved. This information is not intended as a substitute for professional medical care. Always follow your healthcare professional's instructions. Additional Information VACCINATE! IT SAVES LIVES! Members of the community who have not yet received the COVID-19 vaccine and would like to receive it can visit one of [facility] vaccine clinics. There are many vaccine clinic locations within the [facility]. For locations and available times, please visit [email or web address]. It is important to note that some COVID mobile vaccine clinics are held outdoors and may be canceled in rainy or stormy conditions. To learn more about pediatric vaccinations (ages 5-11), we invite you to visit the [facility] webpage. [email or web address] [email or web address]-[email or web address]-Pqzem-Xrvcqlybk.html To learn more about the COVID-19 vaccine, we invite you to visit the [facility] website for a list of frequently asked questions. [email or web address] ently_[email or web address]-Questions.pdf [facility] Patient Portal Access Instructions: Stay connected with your healthcare team and access your personal medical information anytime with the [facility] Patient Portal. If you would like a full copy of your medical records please contact the [facility] Medical Records Department Sunday through Sunday between 8a.m. and 4:30p.m. Please follow the directions below to access the portal: 1.Access the email account you provided upon registration to the [facility].2.Look for an invitation email from [facility].3.Open the email and access the invitation link: Accept Invitation to [facility] [employer]4.Fill in the required garrison to create your account. Sign into [email or web address] with your username and password that you [...] you will allow to register on the [facility] [employer] Patient Portal for access to your information. You can also access the [facility] Patient Portal on the [employer] amador. Simply click on Health Records under Health Data and then click on the [facility] logo. HOW TO SAFELY DISPOSE OF PRESCRIPTION [...] Call your local pharmacy or go to http://bit.ly/7M9Pd8g to find one close to you.3.Make use of household items: Use cat litter or old coffee grounds to dispose medications if other options are not available. Mix your drugs with these household products, seal them in an airtight container and throw it into the garbage. Call [facility]: [phone] to be sure your drugs can be [...] aware that I should contact my doctor. Patient/Horticultural Services Supervisor Signature: Date/Time: Relationship to Patient: ___ Witness Name/Signature: Date/Time: [facility] Evaluation + Plan note Note Date & Type Note Facility Evaluation + Plan note No data available for this section [facility] Summary Purpose Family History No Family History Records Found Advance Directives No Advanced Directives Records Found Additional Source Comments Care Team (unrecognized sect ion and content) Care Team Personnel Name: PHYSICIAN, NONE Position: Physician Member Role: Primary Care Physician Name: SALIMA CONSTANTINO MD Position: ED Physician Member Role: ED Physician Address: Address: [address] [place], [place] [address], [place] [address] INFORMATION SOURCE (unrecogn ized section and content) DATE CREATED AUTHOR 03/15/[address] [facility] jesusation ([place]) FOR RECORDS PERTAINING TO PATIENTS WHO ARE [...] BE BASED ON THE PRIMARY CLINICAL RECORDS. [facility] [employer] [facility]. provides no warranty or guarantee of the accuracy or completeness of information in this document.
[2024-09-05 06:10] LABS: Chlamydia By Nucleic Acid AMP Negative (Negative); Gonococcus By Nucleic Acid AMP Negative (Negative)
[2024-09-10 18:08] LABS: HPV APTIMA, High Risk Negative (Negative)
== END | disposition home or self-care (01) ==
LOC: LABSPEC 16:24
PROVIDERS: Obstetrics & Gynecology; PCP Nurse Practitioner Family; Referring Provider Obstetrics & Gynecology; Visit Provider Obstetrics & Gynecology
DX: O09.299 Supervision of pregnancy with other poor reproductive or obstetric history, unspecified trimester (principal); O99.210 Obesity complicating pregnancy, unspecified trimester; Z12.4 Encounter for screening for malignant neoplasm of cervix; Z3A.00 Weeks of gestation of pregnancy not specified
CPT/HCPCS: 82570; 84156; 87086; 87088; 87491; 87591; 87624; 88175; G0145

== ENCOUNTER → 2024-09-25 | Outpatient (CLI) | payer BC, SELFPAY ==
[2024-09-25 11:53] LABS: Absolute Lymphocyte Count 2.93 X10^3/uL (0.83-4.51); Absolute Neutrophil Count 9.1 X10^3/uL (2.0-7.7); Basophil# 0.06 X10^3/uL; Basophil% 0.5 % (0-1); Hematocrit 36.9 % (37-47); Lymphocyte # 2.93 X10^3/ul (0.83-4.51); Lymphocyte % 22.8 % (19-41); Mean Corp Hgb Conc 32.5 g/dL (32-36); Mean Corpuscular Hgb 29.2 pg (27.0-32.0); Mean Corpuscular Volume 89.8 fL (81-99); Mean Platelet Vol. 11.3 fl (6.2-12.0); Monocyte# 0.61 X10^3/uL; Monocyte% 4.8 % (0-10); NRBC Flagged by Analyzer 0 % (0-5); Neutrophil # 9.11 X10^3/uL (2.7-7.7); POSITIVE COUNT YES; RBC Distribution Width CV 13.2 % (11.6-14.6); RBC Distribution Width SD 42.8 fl (35.1-43.9); Red Blood Count 4.11 M/mm3 (4.2-5.4); White Blood Count 12.8 K/mm3 (4.4-11.0)
[2024-09-25 12:13] LABS: ALB/GLOB Ratio 0.9 RATIO (0.9-2.4); AST(SGOT) 16 U/L (15-37); Alanine Aminotransfer ALT/SGPT 21 U/L (13-56); Albumin, Serum 3.5 g/dL (3.2-5.0); Alkaline Phosphatase 67 U/L (45-117); Anion Gap 7 (5-15); BUN 13 mg/dL (7-18); Calcium,Total 9.4 mg/dL (8.5-10.1); Chloride 106 mmol/L (98-107); Creatinine, Serum 0.65 mg/dL (0.55-1.02); EST Glomerular Filtration Rate 111 mL/min (>60); Est Glom Filt Rate - Afr Amer 134 mL/min (>60); Globulin 3.9 g/dL (2.2-4.2); Glucose 93 mg/dL (74-106); Potassium 3.2 mmol/L (3.5-5.1); Protein, Total 7.4 g/dL (6.4-8.2); Sodium Level 137 mmol/L (136-145)
[2024-09-25 12:47] LABS: HIV - WCH Non-Reactive (Nonreactive); Hepatitis B Surface Antigen Non-Reactive (Nonreactive); Hepatitis C Antibody Non-Reactive (Nonreactive); Rubella IgG Reactive (Nonreactive); Syphilis Antibodies Non-reactive
[2024-09-25 12:50] LABS: Differential Indicated SCAN CRITERIA MET
[2024-09-25 12:51] LABS: Differential Comment SCANNED
[2024-09-25 12:52] LABS: Platelet Estimate ADEQUATE (ADEQ)
[2024-09-25 14:53] LABS: Hemoglobin A1c 5.4 % (3.8-5.6)
[2024-09-30 16:10] LABS: Anti-Cardiolipin Ab, IgG, Qn < 9 GPL U/mL (0-14); Anti-Cardiolipin Ab, IgM, Qn < 9 MPL U/mL (0-12); Beta-2-Glycoprotein I IgA <9 (0-25); Beta-2-Glycoprotein I IgG <9 (0-20); Beta-2-Glycoprotein I IgM <9 (0-32); Dilute Prothrombin Time (dPT) 35.1 sec (0.0-47.6); Interpretation Comment: (.); PTT-LA 31.7 sec (0.0-43.5); Thrombin Time 14.7 sec (0.0-23.0); dPT Confirm Ratio 1.13 Ratio (0.00-1.34)
== END | disposition home or self-care (01) ==
LOC: BWCLAB 10:02
PROVIDERS: Obstetrics & Gynecology; PCP Nurse Practitioner Family; Referring Provider Advanced Practice Midwife; Visit Provider Advanced Practice Midwife
DX: O09.299 Supervision of pregnancy with other poor reproductive or obstetric history, unspecified trimester (principal); O99.891 Other specified diseases and conditions complicating pregnancy; R10.12 Left upper quadrant pain; O99.210 Obesity complicating pregnancy, unspecified trimester; Z3A.00 Weeks of gestation of pregnancy not specified; Z86.73 Personal history of transient ischemic attack (TIA), and cerebral infarction without residual deficits
CPT/HCPCS: 36415; 80053; 81240; 81241; 83036; 85025; 86146; 86147; 86703; 86762; 86780; 86803; 86850; 86900; 86901; 87086; 87088; 87340

== ENCOUNTER 2024-10-09 07:13 | Emergency (ER) | payer OTHER, BC, SELFPAY ==
[2024-10-09 07:13] VITALS: BP 147/84; PULSE 68; RESP 16; TEMP 36.1; O2SAT 100; BMI 41.1
--- NOTE | 2024-10-09 07:25 | EDS_ITS ---
HPI History of Present Illness Chief Complaint: Fall Detail of Chief Complaint: Fall at work with blunt trauma to left side of head, face, and torso bilate Informant: patient Onset/Context/Timing Onset: Today and Hours Mechanism/Context: Blunt Injury and Fall Location of pain/injuries: - (Documented detail of chief complaint) Quality of Pain: Dull Location: Left side of head/face Current Severity: Mild Maximum Severity: Mild Worsened by: Palpation Relieved by: Breast Associated Symptoms Associated Symptoms: Positive for - (Patient was dazed); Negative for Parasthesias, Weakness, Loss of function, Inability to ambulate, Loss of consciousness or Amnesia Narrative Narrative: Patient is a 32-year-old female who presents from work due to work-related injury. 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 She slept. She struck the left temporal and left side of her face against a pipe as well as the right and left side of her torso against pipes. 1 was metal and other was made out of PBC material. She reports she was dazed. She has no loss conscious. Does report head pain. She denies double vision, blurred vision loss of vision. Eyes ringing or ears or decreased hearing. Denies neck pain. She denies paresthesia, anesthesia motors. She is approximately 15 weeks gestation. Her OB is affiliated with [facility]. This is her sixth . She has 5 live children. Patient has history of depression, anxiety, PTSD and ADHD. Patient states she is not vaccinated. Tetanus Immunization: >10 years Prior similar symptoms: No Recent Illness/Hospitalization: No PFSH PFSH Medical History Hx of mastitis Congenital heart defect Endometriosis Crohn's disease Home Medications ?Medication ?Instructions ?Recorded ?Last Taken ?Type acetaminophen 500 mg capsule 500 mg PO Q6H PRN pain 04/12/24 04/12/24 History diazepam 10 mg tablet 15 mg PO TID PRN ptsd 04/12/24 04/12/24 History loperamide 2 mg capsule 2 mg PO PRN 04/12/24 Unknown History modafinil 200 mg tablet 400 mg PO DAILY 04/12/24 04/12/24 History amoxicillin 500 mg capsule 500 mg PO TID 08/06/24 Unknown History doxepin 75 mg capsule 75 mg PO DAILY PRN 08/14/24 Unknown History multivit-min no.71-iron fum 28 cap PO 08/14/24 Unknown History mg-folate no.1 1 mg-dha 300 mg capsule (PNV-[place]) famotidine 20 mg tablet (Pepcid) 20 mg PO DAILY #30 tabs 09/02/24 Unknown Rx promethazine 12.5 mg tablet 12.5 mg PO Q6H PRN nausea and 09/02/24 Unknown Rx vomiting #90 tabs Allergy/AdvReac Type Severity Reaction Status Date / Time methylprednisolone (From Allergy Severe Anaphylaxis Verified 10/09/24 07:13 Solu-Medrol) midazolam (From Versed) Allergy Unknown Other Verified 10/09/24 07:13 benzocaine (From Cetacaine) Allergy Anaphylaxis Verified 10/09/24 07:13 butamben (From Cetacaine) Allergy Anaphylaxis Verified 10/09/24 07:13 methylprednisolone sodium Allergy Anaphylaxis Verified 10/09/24 07:13 succinate (From Solu-Medrol) metoclopramide (From Reglan) Allergy Other Verified 10/09/24 07:13 sertraline Allergy Other Verified 10/09/24 07:13 tetracaine (From Cetacaine) Allergy Anaphylaxis Verified 10/09/24 07:13 midazolam HCl (From Versed) AdvReac Other Verified 10/09/24 07:13 Family History Grandmother Breast cancer, Onset Age: 37 Paternal Aunt Breast cancer, Onset Age: 36 Paternal Aunt Breast cancer Maternal Grandmother Breast cancer, Onset Age: 80 Maternal Surgical History Hx of myringotomy History of colon resection H/O dilation and curettage H/O resection of small bowel History of cholecystectomy Hx LEEP (loop electrosurgical excision procedure), cervix, Social History adopted: No 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al status: employed 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al exposures/hazards: Yes pets and animals: Yes pets and animals: dog(s) history of recent travel: Yes ([place], [place]) out of state: Yes out of country: No sexually active: Yes Smoking Status: Current some day smoker quit status: considering quitting alcohol intake: never substance use type: does not use diet: other well-balanced diet: about half the time caffeine: Yes Type: carbonated beverages Number of servings: 2 eating out: 4 or more times/week during the past year weight has: decreased > 10 lbs what type of physical activity do you participate in: weight training frequency: 1-2 times per week duration: < 15 minutes/day keiko/yazidi: Baptism seatbelt use: always do you feel safe at home: Yes additional social history: FOB is Donor ROS ROS ED Eyes Eyes: Denies blurry vision or change in vision ENT ENT ED: Reports other Details: Denies tinnitus. ; Denies ear pain, rhinorrhea or sore throat Cardiovascular Cardiovascular: Reports chest pain; Denies palpitations or racing heartbeat Respiratory/Chest Respiratory/Chest: Denies cough, dyspnea or dyspnea on exertion Gastrointestinal Gastrointestinal: Denies abdominal pain, nausea or vomiting Musculoskeletal Musculoskeletal: Denies back pain or neck pain Integumentary Reports Abrasions Neurologic Neurologic: Denies headache(s), paresthesias or weakness Endocrine Endocrinology: Denies cold intolerance or heat intolerance Hematologic/Lymphatic Hematologic/Lymphatic: Denies easy bleeding or easy bruising EXAM Physical Exam Const Vital Signs: 10/09/24 07:13 Temperature 96.9 F L Temperature Source Temporal Pulse Rate 68 Respiratory Rate 16 Blood Pressure 147/84 H Blood Pressure Mean 105 Pulse Ox 100 Oxygen Delivery Method Room Air Positive well nourished and well developed Constitutional Narrative: BMI is 41.2. General Appearance ED: well developed and NAD HEENT HEENT Narrative: Tenderness near the left zygomatic arch. There is an abrasion. There is no significant soft tissue swelling. There is no clinical signs of basilar skull fracture there is no evidence of trauma to the ears. trauma and tenderness; Negative for atraumatic Nose: Negative for septum abnormal Eyes PERRL and EOMs intact bilaterally General Eye ED: Yes other Other Details: There is no subconjunctival hemorrhage. Neck full ROM Neck Narrative: C-spine was cleared per Nexus criteria. General: Negative for tenderness Chest Wall inspection of chest normal and palpation of chest normal Resp normal respiratory effort and clear to auscultation bilaterally Cardio regular rhythm, S1 normal heart sound, S2 normal heart sound and no murmurs Rate: regular rate GI normal to inspection, nondistended, normoactive bowel sounds, non-tender, non- distended and no masses GI Narrative: There is no evidence of trauma. Inspection: Negative for abdominal distention Auscultation: normoactive bowel sounds Palpation: soft Back/Spine normal to inspection and no thoracic nor lumbar tenderness Extremity normal to inspection and full ROM Neuro oriented x3, CN's II-XII intact bilaterally, moves all extremities, no focal motor deficits, no sensory deficits noted and gait normal [place] Coma Scale: document GCS findings Spontaneous Obeys Commands Oriented 15 Sensorium / Orientation: alert Plantar Reflex: Downgoing: bilateral Psych mental status grossly normal and thought process normal Skin Skin Narrative: Abrasion near the left zygomatic arch MDM MDM MDM Narrative Medical decision making narrative: Per the [place] CT head rule and Iron rule imaging of the head is not warranted. C-spine was cleared per Nexus criteria for since there is no evidence of trauma to the torso there is no tenderness in the suprapubic area there is no concern for any trauma to the uterus. Furthermore, the patient describes the pipes being on the right and left side of her torso. Tetanus was not updated since she is not vaccinated. History & Record Review Additional record(s) reviewed:: Prior outpatient record (Reviewed OB note authored by Dr. Natasha Johnson on 09/02/2024.) Discharge Plan Triage Chief Complaint: Fall ED Provider: Santi Shaver Dx/Rx/DC Orders Clinical Impression: Concussion without loss of consciousness, Contusion of face, Abrasion of face, Blunt trauma to chest, Blunt abdominal trauma, Second trimester Instructions: ED Abrasion, ED Concussion Prescriptions: No Action PNV-[place] 28-1-300 mg capsule PO promethazine 12.5 mg tablet 12.5 mg PO Q6H PRN (Reason: nausea and vomiting) Qty: 90 4RF famotidine [Pepcid] 20 mg tablet 20 mg PO DAILY Qty: 30 6RF diazepam 10 mg tablet 15 mg PO TID PRN loperamide 2 mg capsule 2 mg PO PRN Rx Instructions: MAX 8/DAILY modafinil 200 mg tablet 400 mg PO DAILY acetaminophen 500 mg capsule 500 mg PO Q6H PRN (Reason: pain) doxepin 75 mg capsule 75 mg PO DAILY PRN amoxicillin 500 mg capsule 500 mg PO TID Primary Care Provider: Care Physician,No Primary Referrals: Corporate,Care [Group of Physicians] - 3-5 Days Leticia Bergman, RECORDING ENGINEER-C [[facility]] - Activity Restrictions/Additional Instructions: 1. You will feel worse over the next 24 to 48 hours 2. You will hurt more places and you presently do 3. You may hurt for several days up to a week. 4. Apply ice to areas of discomfort 6-8 times a day. Heat will make it worse. Print Language: Ugandan Disposition Disposition: Home, Self Care
[2024-10-09 07:45] VITALS: BP 124/69; PULSE 72; RESP 15; TEMP 36.3; O2SAT 98
[2024-10-09 07:48] VITALS: O2SAT 98
== END 2024-10-09 07:49 | disposition home or self-care (01) ==
PROVIDERS: Emergency Provider Emergency Medicine; Visit Provider Emergency Medicine
DX: O9A.212 Injury, poisoning and certain other consequences of external causes complicating pregnancy, second trimester (principal); S06.0X0A Concussion without loss of consciousness, initial encounter; S00.81XA Abrasion of other part of head, initial encounter; S00.83XA Contusion of other part of head, initial encounter; S39.91XA Unspecified injury of abdomen, initial encounter; S29.9XXA Unspecified injury of thorax, initial encounter; W01.198A Fall on same level from slipping, tripping and stumbling with subsequent striking against other object, initial encounter; Y92.63 Factory as the place of occurrence of the external cause; Y99.0 Civilian activity done for income or pay; O99.332 Smoking (tobacco) complicating pregnancy, second trimester; F17.200 Nicotine dependence, unspecified, uncomplicated; Z3A.15 15 weeks gestation of pregnancy
CPT/HCPCS: 99282

== ENCOUNTER → 2024-10-10 | Outpatient (CLI) | payer BC, SELFPAY ==
[2024-10-10 14:53] LABS: Hepatitis B Surface Antigen Non-Reactive (Nonreactive); Hepatitis C Antibody Non-Reactive (Nonreactive); Syphilis Antibodies Non-reactive
[2024-10-11 06:09] LABS: Hepatitis B Core Ab Total Negative (Negative)
== END | disposition home or self-care (01) ==
LOC: BWCLAB 10:58
DX: O09.892 Supervision of other high risk pregnancies, second trimester (principal); Z20.9 Contact with and (suspected) exposure to unspecified communicable disease; Z3A.00 Weeks of gestation of pregnancy not specified
CPT/HCPCS: 36415; 86704; 86780; 86803; 87340

== ENCOUNTER → 2024-10-14 | Outpatient (CLI) | payer OTHER, SELFPAY ==
--- NOTE | 2024-10-14 13:00 | CT_ITS ---
STUDY: CT BRAIN WITHOUT CONTRAST REASON FOR EXAM: Female, 32 years old. Persistent headache s/p concussion -- 15 wks gestation RADIATION DOSAGE (If Supplied By Facility): CTDIvol = ( 44.99 ) mGy, DLP = ( 779.24 ) mGycm TECHNIQUE: Transaxial CT imaging of the brain was performed without administration of intravenous contrast material. Individualized dose optimization techniques were used for this CT. COMPARISON: Comparison is made with prior study dated November 17, 2023. FINDINGS: Normal soft tissue structures. Normal calvarium. Normal size ventricles and extra-axial spaces for the patient''s age. Normal white matter tracts of the cerebral hemispheres. Normal basal ganglia and thalami. Normal brainstem. Normal cerebellum. There is no intracranial hemorrhage. There are no findings of an acute ischemic infarction. Normal visualized paranasal sinuses. CT/Brain/Head without Contrast IMPRESSION: Normal unenhanced CT scan of the brain. Electronically Signed: [place] MD at 13:32 EST ,
== END | disposition home or self-care (01) ==
LOC: CT 12:57
PROVIDERS: Referring Provider Physician Assistant; Visit Provider Physician Assistant
DX: O9A.212 Injury, poisoning and certain other consequences of external causes complicating pregnancy, second trimester (principal); S06.0X0A Concussion without loss of consciousness, initial encounter; Z3A.15 15 weeks gestation of pregnancy
CPT/HCPCS: 70450

== ENCOUNTER 2024-11-13 01:49 | Emergency (ER) | payer BC, SELFPAY ==
[2024-11-13 01:49] VITALS: BP 142/70; PULSE 72; RESP 14; TEMP 36.7; O2SAT 98; BMI 45.6
[2024-11-13] MEDS: proCHLORPERazine 10 MG/2 ML Vial IV (02:37)
[2024-11-13] MEDS: DiphenhydrAMINE 50 MG/ML Syringe 25 MG IV (02:37)
[2024-11-13] MEDS: 0.9% Normal Saline (1000mL) 1,000 ML 999 ML IV ×2 (02:37→03:38)
[2024-11-13 02:54] LABS: Bacteria 0 SEEN /hpf (None Seen); Mucous, Urine 0 SEEN /hpf (<or=2+); Red Blood Cells-Urine 0 SEEN /hpf (0-5); White Blood Cells 0 SEEN /hpf (0-5)
[2024-11-13 02:59] LABS: Color, Urine Yellow (Yellow); Glucose, Dipstick Normal (Normal); Ketone-Dipstick Negative (Negative); Leukocyte Esterase-Dipstick Negative /ul (Negative); Nitrite-Dipstick Negative (Negative); Occult Blood-Urine Negative /ul (Negative); Protein-Dipstick Negative (Negative); Urine Bilirubin Dipstick Negative (Negative); Urine Clarity Clear (Clear); Urine Urobilinogen Normal (Normal)
[2024-11-13 03:02] LABS: Anion Gap 4 (5-15); BUN 6 mg/dL (7-18); BUN/Creat Ratio 10.9 RATIO (10-20); Calcium,Total 9.1 mg/dL (8.5-10.1); Chloride 109 mmol/L (98-107); Creatinine, Serum 0.55 mg/dL (0.55-1.02); EST Glomerular Filtration Rate 134 mL/min (>60); Est Glom Filt Rate - Afr Amer 162 mL/min (>60); Estimated Creatinine Clearance 182.69 ml/min; Glucose 110 mg/dL (74-106); Magnesium 1.8 mg/dL (1.6-2.6); Potassium 3.7 mmol/L (3.5-5.1); Sodium Level 137 mmol/L (136-145)
[2024-11-13 03:10] LABS: Squamous Epithelial Cells - UA 0-5 SEEN /hpf (5-10)
[2024-11-13 04:00] VITALS: BP 128/66; PULSE 76; RESP 18; O2SAT 98
--- NOTE | 2024-11-13 04:09 | EDS_ITS ---
HPI History of Present Illness Chief Complaint: Nausea/Vomiting/Diarrhea Informant: patient Narrative Narrative: Patient is a 33-year-old female with past medical history of Crohn's disease who state roughly 20 weeks . She states she has been having multiple bouts of nausea and vomiting despite taking Phenergan. She reports there is multiple sick contacts at work she is also had mild congestion and cough. She is concerned that she has picked up the flu. He is also concern for dehydration as she states she has not been able to keep food or fluid down and therefore comes in for evaluation [facility] Medical History Hx of mastitis Congenital heart defect Endometriosis Crohn's disease Home Medications ?Medication ?Instructions ?Recorded ?Last Taken ?Type acetaminophen 500 mg capsule 500 mg PO Q6H PRN pain 04/12/24 04/12/24 History loperamide 2 mg capsule 2 mg PO PRN 04/12/24 Unknown History doxepin 75 mg capsule 75 mg PO DAILY PRN 08/14/24 Unknown History multivit-min no.71-iron fum 28 1 cap PO DAILY 08/14/24 Unknown History mg-folate no.1 1 mg-dha 300 mg capsule (PNV-[place]) famotidine 20 mg tablet (Pepcid) 20 mg PO DAILY #30 tabs 09/02/24 Unknown Rx promethazine 12.5 mg tablet 12.5 mg PO Q6H PRN nausea and 09/02/24 Unknown Rx vomiting #90 tabs diazepam 2 mg tablet 2 mg PO TID PRN ptsd #20 tabs 10/24/24 Unknown Rx modafinil 100 mg tablet 100 mg PO DAILY #20 tabs 10/24/24 Unknown Rx promethazine 25 mg rectal 25 mg CO 4X/DAY PRN 11/13/24 Unknown Rx suppository Nausea/vomiting #12 ea Allergy/AdvReac Type Severity Reaction Status Date / Time methylprednisolone (From Allergy Severe Anaphylaxis Verified 11/13/24 01:50 Solu-Medrol) midazolam (From Versed) Allergy Unknown Other Verified 11/13/24 01:50 benzocaine (From Cetacaine) Allergy Anaphylaxis Verified 11/13/24 01:50 butamben (From Cetacaine) Allergy Anaphylaxis Verified 11/13/24 01:50 methylprednisolone sodium Allergy Anaphylaxis Verified 11/13/24 01:50 succinate (From Solu-Medrol) metoclopramide (From Reglan) Allergy Other Verified 11/13/24 01:50 sertraline Allergy Other Verified 11/13/24 01:50 tetracaine (From Cetacaine) Allergy Anaphylaxis Verified 11/13/24 01:50 midazolam HCl (From Versed) AdvReac Other Verified 11/13/24 01:50 Family History Grandmother Breast cancer, Onset Age: 37 Paternal Aunt Breast cancer, Onset Age: 36 Paternal Aunt Breast cancer Maternal Grandmother Breast cancer, Onset Age: 80 Maternal Surgical History Hx of myringotomy History of colon resection H/O dilation and curettage H/O resection of small bowel History of cholecystectomy Hx LEEP (loop electrosurgical excision procedure), cervix, Social History adopted: No 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al status: employed 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al exposures/hazards: Yes pets and animals: Yes pets and animals: dog(s) history of recent travel: Yes ([place], [place]) out of state: Yes out of country: No sexually active: Yes Smoking Status: Current some day smoker tobacco type: cigarettes quit status: considering quitting alcohol intake: never substance use type: does not use diet: other well-balanced diet: about half the time caffeine: Yes Type: carbonated beverages Number of servings: 2 eating out: 4 or more times/week during the past year weight has: decreased > 10 lbs what type of physical activity do you participate in: weight training frequency: 1-2 times per week duration: < 15 minutes/day keiko/rastafarian: Episcopal seatbelt use: always do you feel safe at home: Yes additional social history: FOB is Donor ROS ROS ED Constitutional Constitutional ED: Denies chills or fever(s) ENT ENT ED: Reports rhinorrhea and sore throat Cardiovascular Cardiovascular: Denies chest pain Respiratory/Chest Respiratory/Chest: Reports cough; Denies dyspnea Gastrointestinal Gastrointestinal: Reports diarrhea, nausea and vomiting; Denies abdominal pain Genitourinary Genitourinary ED: Reports other Details: Patient denies vaginal bleeding or discharge ; Denies dysuria Musculoskeletal Musculoskeletal: Denies myalgias Integumentary Denies rash Neurologic Neurologic: Denies headache(s) Hematologic/Lymphatic Hematologic/Lymphatic: Denies easy bleeding or easy bruising EXAM Physical Exam Const Vital Signs: 11/13/24 01:49 11/13/24 04:00 11/13/24 05:23 Temperature 98.1 F 98.0 F Temperature Source Oral Pulse Rate 72 76 61 Respiratory Rate 14 18 18 Blood Pressure 142/70 H 128/66 H 128/66 H Blood Pressure Mean 94 86 86 Pulse Ox 98 98 100 Oxygen Delivery Method Room Air Room Air Positive well nourished and well developed General Appearance ED: well developed; Negative for pallor HEENT Reports dry mucous membranes HEENT Narrative: No tongue or lip swelling no oral lesions no airway edema or compromise There is cobblestoning noted in the posterior pharynx consistent with sinus drainage No secondary findings to suggest infection Mucous membranes are slightly dry and tacky Mouth ED: Yes dry mucous membranes Mouth: dry mucous membranes Eyes PERRL and EOMs intact bilaterally General Eye ED: Negative for scleral icterus Neck supple Resp normal respiratory effort and clear to auscultation bilaterally Cardio regular rate and regular rhythm GI non-tender and non-distended GI Narrative: Soft nontender and nondistended with hyperactive bowel sounds. No voluntary guarding or rigidity or pulsatile mass Auscultation: hyperactive bowel sounds Palpation: soft Extremity normal to inspection Neuro oriented x3, CN's II-XII intact bilaterally and no sensory deficits noted Sensorium / Orientation: alert Motor Exam: strength 5/5 throughout Psych mental status grossly normal Skin no rashes or lesions noted and No skin turgor normal Skin Narrative: Skin turgor slightly increased General Skin Exam: Negative for jaundice or pallor MDM MDM MDM Narrative Medical decision making narrative: Patient arrived to the ER with stable vital. With her report of persistent nausea and vomiting there is concern for acute kidney injury versus electrolyte abnormality such as hypokalemia or hypomagnesemia. As she states she has been around multiple sick contacts and has had mild congestion and cough there is concern for influenza versus COVID versus RSV. Secondary to this basic labs were obtained as well as a viral swab. Labs revealed no clinically significant findings and viral swab was negative. This correlates with persistent nausea and vomiting associated with . She was given a liter of fluid IV Compazine and Benadryl and had no further bouts of vomiting. As labs do not show acute kidney injury or severe electro abnormality there is no reason for further workup in the hospital and she is otherwise safe for discharge History & Record Review Discussion w/independent historian: Patient Lab Data Attestation: I reviewed the patient's lab results. Labs: Laboratory Results - last 24 hr 11/13/24 11/13/24 01:56 02:45 Sodium 137 Potassium 3.7 Chloride 109 H Carbon Dioxide 24.0 Anion Gap 4 L BUN 6 L Creatinine 0.55 Estim Creat Clear Calc 182.69 Est GFR (MDRD) Af Amer 162 Est GFR (MDRD) Non-Af 134 BUN/Creatinine Ratio 10.9 Glucose 110 H Calcium 9.1 Magnesium 1.8 Urine Color Yellow Urine Clarity Clear Urine pH 7.0 Ur Specific [place] 1.010 Urine Protein Negative Urine Glucose (UA) Normal Urine Ketones Negative Urine Occult Blood Negative Urine Nitrite Negative Urine Bilirubin Negative Urine Urobilinogen Normal Ur Leukocyte Esterase Negative Urine RBC 0 SEEN Urine WBC 0 SEEN Ur Squamous Epith Cells 0-5 SEEN Urine Bacteria 0 SEEN Urine Mucus 0 SEEN Discharge Plan Triage Chief Complaint: Nausea/Vomiting/Diarrhea ED Provider: Major Mejia Dx/Rx/DC Orders Clinical Impression: Nausea vomiting and diarrhea, Dehydration, Crohn's disease Instructions: ED Dehydration (Adult), ED Hyperemesis Gravidarum Prescriptions: New promethazine 25 mg suppository 25 mg CO 4X/DAY PRN (Reason: Nausea/vomiting) Qty: 12 2RF No Action PNV-[place] 28-1-300 mg capsule 1 cap PO DAILY promethazine 12.5 mg tablet 12.5 mg PO Q6H PRN (Reason: nausea and vomiting) Qty: 90 4RF famotidine [Pepcid] 20 mg tablet 20 mg PO DAILY Qty: 30 6RF diazepam 2 mg tablet 2 mg PO TID PRN Qty: 20 0RF loperamide 2 mg capsule 2 mg PO PRN Rx Instructions: MAX 8/DAILY acetaminophen 500 mg capsule 500 mg PO Q6H PRN (Reason: pain) doxepin 75 mg capsule 75 mg PO DAILY PRN modafinil 100 mg tablet 100 mg PO DAILY Qty: 20 0RF Primary Care Provider: Care Physician,No Primary Referrals: Care Physician,No Primary [Primary Care Provider] - Activity Restrictions/Additional Instructions: Please follow-up with your OPERATIONS SECTION MANAGER for repeat evaluation. However your workup today showed no sign of influenza COVID or RSV and your potassium and kidney function are normal. Keep yourself well-hydrated and use the prescribed medications as directed help with further episodes of nausea and vomiting and return to the ER should you have any further concerns Print Language: Gabonese Disposition Disposition: Home, Self Care Discharge Date/Time: 11/13/24 05:36
[2024-11-13 05:23] VITALS: BP 128/66; PULSE 61; RESP 18; TEMP 36.7; O2SAT 100
== END 2024-11-13 05:36 | disposition home or self-care (01) ==
PROVIDERS: Emergency Provider Emergency Medicine; Visit Provider Emergency Medicine
DX: O21.1 Hyperemesis gravidarum with metabolic disturbance (principal); K50.90 Crohn's disease, unspecified, without complications; O99.612 Diseases of the digestive system complicating pregnancy, second trimester; O99.891 Other specified diseases and conditions complicating pregnancy; R19.7 Diarrhea, unspecified; O99.332 Smoking (tobacco) complicating pregnancy, second trimester; F17.210 Nicotine dependence, cigarettes, uncomplicated; O09.512 Supervision of elderly primigravida, second trimester; Z3A.20 20 weeks gestation of pregnancy
CPT/HCPCS: 80048; 81001; 83735; 87631; 96361; 96374; 96375; 99283; A4216

== ENCOUNTER → 2024-12-17 | Outpatient (CLI) | payer BC, SELFPAY | END | disposition home or self-care (01) | LOC: LABSPEC 11:18 | PROVIDERS: Referring Provider Obstetrics & Gynecology; Visit Provider Obstetrics & Gynecology | DX: R30.0 Dysuria (principal) | CPT/HCPCS: 87086; 87088 ==

== ENCOUNTER 2025-05-20 04:08 | Emergency (ER) | payer BC, MEDICAID, SELFPAY ==
[2025-05-20 04:10] VITALS: BP 139/103; PULSE 91; RESP 19; TEMP 36.6; O2SAT 100; BMI 53.0
[2025-05-20 04:13] VITALS: BP 139/103; PULSE 85; RESP 18; TEMP 36.6; O2SAT 100
--- OUTSIDE RECORDS SUMMARY | 2025-05-20 04:44 | XMS RPT_ITS | CCD ---
Author Organization [facility] Care Team Providers Care Escrow Representative Name Role Phone JAYDEN PÉREZ Unavailable Unavailable PROVIDER, UNKNOWN Unavailable Unavailable No, PCP Unavailable Unavailable MAYELA ELLIOTT Unavailable Unavailable FREDDIE SHAW V Unavailable Unavailable YEIMY PEREIRA Unavailable Unavailable Jade Oquendo S Unavailable Unavailable Jade Oquendo S Unavailable Unavailable Nirmal Madodx Unavailable Unavailable Nirmal Maddox Unavailable Unavailable Swapna Izquierdo Unavailable Unavailable Swapna Izquierdo Unavailable Unavailable Freddie Tinoco Unavailable [phone] AMBERLY MORGAN Unavailable Unavailable SELF, REFERRED Unavailable Unavailable PROVIDER, UNKNOWN Unavailable Unavailable FREDDIE TINOCO Unavailable Unavailable CHASE PARHAM Unavailable Unavaila STU Campos Unavailable UnaARIANNE Ragland Unavailable Unavailable ALCIDES DAS Unavailable Unavailabl e Unavailable Unavailable Unavailable DENY, JOSEPH J Unavailable Unavailable DENY, JOSEPH J Unavailable Unavailable BERCIKTORRESIN J Unavailable Unavailable JAGJIT SALAZAR R Unavailable Unavailable DENY, JOSEPH J Unavailable Unavailable DENY, JOSEPH J Unavailable Unavailable DENY, JOSEPH J Unavailable Unavailable DENY, JOSEPH J Unavailable Unavailable DENY, JOSEPH J Unavailable Unavailable DENY, JOSEPH J Unavailable Unavailable DENY, JOSEPH J Unavailable Unavailable DENY, JOSEPH J Unavailable Unavailable DENY, JOSEPH J Unavailable Unavailable DENY, JOSEPH J Unavailable Unavailable DENY, JOSEPH J Unavailable Unavailable DOUGIE, LONA L Unavailable Unavailable DOUGIE, LONA L Unavailable Unavailable DOUGIE, LONA L Unavailable Unavailable DENY, JOSEPH J Unavailable Unavailable DENY, JOSEPH J Unavailable Unavailable DENY, JOSEPH J Unavailable Unavailable DENY, JOSEPH J Unavailable Unavailable DENY, JOSEPH J Unavailable Unavailable DENY, JOSEPH J Unavailable Unavailable DENY, JOSEPH J Unavailable Unavailable DENY, JOSEPH J Unavailable Unavailable DENY, JOSEPH J Unavailable Unavailable DENY, JOSEPH J Unavailable Unavailable ASCENCION DUBON Unavailable Unavailable ASCENCION DUBON Unavailable Unavailable JOSEPH RENTERIA J Unavailable Unavailable DENY, JOSEPH J Unavailable Unavailable EHSAN JAQUEZ Attending Unavailable EHSAN JAQUEZ Attending Unavailable MAYCOL CASAS Attending Unavailable GLEN HAMILTON Attending Unavailable CARLINE TINOCO Attending Unavailable CARLINE TINOCO Attending Unavailable PROVIDER, UNKNOWN Attending Unavailable PROVIDER, UNKNOWN Admitting Unavailable PATIENT, SELF Referring Unavailable PHYSICIAN, NONE Primary Care Physician Unavailab le Care Physician, No Primary Primary Care Provider Unavailable Care Physician, No Primary Referring Provider Un available MITCHEL Keene Attending Provider [phone] NO, PHYSICIAN Primary Care Unavailable JEANETTE BEAL Attending Unavailabl LILY Hsu Consulting Unavailab le NO, PHYSICIAN Primary Care Unavailable EMERGENCY, TRIAGE PROTOCOL Admitting Unava ilable EMERGENCY, TRIAGE PROTOCOL Referring Unava ilable Care Physician, No Primary Primary Care Provider Unavailable Care Physician, No Primary Referring Provider Un available MITCHEL Keene Attending Provider [phone] DOUGIE SEAMAN, DR BORREGO Attending Unavailabl e PHYSICIAN, NONE Primary Care Unavailable NAYA GODFREY CNP Attending Unavaila ble PHYSICIAN, NONE Primary Care Unavailable STU JOHNSON Referring Unavailable STU JOHNSON Attending Unavailable CLARKE TAYLOR Attending Unavailable HEMAL SALINAS Referring Unavailabl e MARIATOPanchito, YANELIS J Primary Care Unavailable MARYANA WILLIS Attending Unavailable RITA HEMAL E Referring Unavailabl e MARIATOS, YANELIS J Primary Care Unavailable MAJOR HERNANDEZ Attending Unavailable AMBERLY PETIT Referring Unavailab le MIREILLE CRUZS Laverne Primary Care Unavailable CLARKE TAYLOR Attending Unavailable HEMAL SALINAS Referring Unavailabl e SPIRTOS, YANELIS J Primary Care Unavailable Unavailable Primary Care Provider Unavailabl SUGEY Mendoza Attending Unavailable Unavailable Primary Care Provider Unavailabl e Generic Provider , No Assigned Pcp Primary Car e Provider Unavailable Earl [place] MD Unavailable [phone] Generic Provider , No Assigned Pcp Primary Car e Provider Unavailable Santi Shaver Attending Unavailable Care Physician, No Primary Primary Care Unava ilable Mayela Jacinto Referring Unavailable Mayela Jacinto Attending Unavailable Care Physician, No Primary Primary Care Unava ilable Pacheco VSC, Leticia Primary Care Unavailabl e Vande Velde, Amberly Referring Unavailabl e Vande Veldonna, Amberly Attending Unavailabl e Pacheco VSC, Leticia Primary Care Unavailabl e Pacheco VSC, Leticia Attending Unavailabl e Amberly Laboy Attending Unavailable Care Physician, No Primary Primary Care Unava ilable Pacheco VSC, Leticia Primary Care Unavailabl e Pacheco VSC, Leticia Referring UnavailHemal Calles Attending Unavailable Marisol Elliott Referring Unavailable Marisol Elliott Attending Unavailable Care Physician, No Primary Primary Care Unava ilable Pacheco VSC, Leticia Primary Care Unavailabl e Major Mejia [facility]ending [facility]available [facility] Primary Care UnavailMarisol Edwards Attending Unavailable Marisol Elliott Referring Unavailable Jaida Fiore Attending Unavailable Care Physician, No Primary Primary Care Unava ilable Rodolfo Keene Attending Unavailable Care Physician, No Primary Primary Care Unava ilable Care Physician, No Primary Referring Unava ilable Mayela Jacinto Attending Unavailable Care Physician, No Primary Referring Unava ilable Care Physician, No Primary Primary Care Unava ilable Amberly Laboy Attending Unavailable Care Physician, No Primary Primary Care Unava ilable Jaida Fiore Attending Unavailable Care Physician, No Primary Primary Care Unava ilable Jaida Fiore Attending Unavailable Care Physician, No Primary Primary Care Unava ilable Amberly Laboy Attending Unavailable Care Physician, No Primary Primary Care Unava ilable Amberly Laboy Attending Unavailable Care Physician, No Primary Primary Care Unava ilable [facility], Leticia Primary Care Unavailabl e Nito Nur Attending Unavailable Pacheco VSC, Leticia Attending Unavailabl e Pacheco VSC, Leticia Primary Care Unavailabl Amberly Carter Attending Unavailable Care Physician, No Primary Primary Care Unava ilable Pacheco VSC, Leticia Primary Care Unavailabl e Pacheco VSC, Leticia Referring Unavailabl e Vande Velde, Amberly Attending Unavailabl e SkAmberly morales Attending Unavailable Care Physician, No Primary Primary Care Unava ilable Major Mejia Attending Unavailable Care Physician, No Primary Primary Care Unava ilable Hemal Salinas Referring Unavailable Hemal Salinas Attending Unavailable Care Physician, No Primary Primary Care Unava ilable Amberly Laboy Attending Unavailable Care Physician, No Primary Primary Care Unava ilable Christen Posada Attending Unavailable Care Physician, No Primary Primary Care Unava ilable Jaida Fiore Attending Unavailable Care Physician, No Primary Primary Care Unava ilable Pacheco VSC, Leticia Primary Care Unavailabl e Pacheco VSC, Leticia Referring Unavailabl e Marisol Elliott Attending Unavailable Amberly Haas Attending Unavailabl e Care Physician, No Primary Primary Care Unava ilable Care Physician, No Primary Referring Unava ilable Jaida Fiore Attending Unavailable Care Physician, No Primary Primary Care Unava ilable Jaida Fiore Attending Unavailable Care Physician, No Primary Primary Care Unava ilable SkruAmberly clemente Attending Unavailable Care Physician, No Primary Primary Care Unava ilable Pacheco VSC, Leticia Primary Care Unavailabl e Pacheco VSC, Leticia Referring Unavailabl e Mayela Jacinto Attending Unavailable Mayela Jacinto Attending Unavailable Care Physician, No Primary Primary Care Unava ilable Care Physician, No Primary Referring Unava ilable Amberly Laboy Attending Unavailable Care Physician, No Primary Primary Care Unava ilable SkAmberly morales Attending Unavailable Care Physician, No Primary Primary Care Unava ilable Amberly Laboy Attending Unavailable Care Physician, No Primary Primary Care Unava ilable Pacheco VSC, Leticia Referring Unavailabl e Jessica Maxwell, Amberly Attending Unavailabl e Care Physician, No Primary Primary Care Unava ilable Jaida Fiore Attending Unavailable Care Physician, No Primary Primary Care Unava ilable Pacheco VSC, Leticia Referring Unavailabl e Hemal Salinas Attending Unavailable Care Physician, No Primary Primary Care Unava ilable Jaida Fiore Attending Unavailable Care Physician, No Primary Primary Care Unava ilable Pacheco VSC, Leticia Referring Unavailabl e Hemal Salinas Attending Unavailable Care Physician, No Primary Primary Care Unava ilable Pacheco VSC, Leticia Primary Care Unavailabl e Pacheco VSC, Leticia Referring Unavailabl e Mayela Jacinto Attending Unavailable Jaida Fiore Attending Unavailable Care Physician, No Primary Primary Care Unava ilable Jaida Fiore Attending Unavailable Care Physician, No Primary Primary Care Unava ilable Pacheco VSC, Leticia Primary Care Unavailabl e Lanett, Santi Attending Unavailable Esther SEAMAN Zoë Primary Care Provider YULIYA CHAVIRA Attending Unavailable GENERIC PROVIDER, NO ASSIGNED PCP Primary Care Unavailable ESTHER, ZOË Attending Unavailable ZAKHAI, ZOË Referring Unavailable GENERIC PROVIDER, NO ASSIGNED PCP Primary Care Unavailable ZOË SANTANA Attending Unavailable ESTHER, ZOË Primary Care Unavailable ZOË SANTANA Attending Unavailable ESTHER, ZOË Primary Care Unavailable STANISLAV, EARL Amos Attending Unavailable STANISLAV, EARL Amos Admitting Unavailable STANISLAV, EARL Amos Referring Unavailable RANJEET, CARLINE Pathak Attending Unavailable CANDYJOSE GUADALUPE CORREA A Attending Unavailable STANISLAV, EARL N Referring Unavailable STANISLAV, EARL N Admitting Unavailable STANISLAV, EARL N Attending Unavailable STANISLAV, EARL N Admitting Unavailable STANISLAV, EARL Amos Attending Unavailable GENERIC PROVIDER, NO ASSIGNED PCP Primary Care Unavailable STANISLAV, EARL Amos Referring Unavailable STANISLAV, EARL Amos Attending Unavailable CANDY, DULCE Referring Unavailable GENERIC PROVIDER, NO ASSIGNED PCP Primary Care Unavailable HARRIET SPENCER Attending Unavailable GENERIC PROVIDER, NO ASSIGNED PCP Primary Care Unavailable CANDY, DULCE Referring Unavailable GENERIC PROVIDER, NO ASSIGNED PCP Primary Care Unavailable MARY, HARRIET Attending Unavailable GENERIC PROVIDER, NO ASSIGNED PCP Primary Care Unavailable CANDY, DULCE Referring Unavailable GENERIC PROVIDER, NO ASSIGNED PCP Primary Care Unavailable JASMINA BENÍTEZ Attending Unavailable GENERIC PROVIDER, NO ASSIGNED PCP Primary Care Unavailable GENERIC PROVIDER, NO ASSIGNED PCP Primary Care Unavailable CLAIR CASTRO Admitting Unavailable CANDY, DULCE Attending Unavailable BAZELLA, KELLI A Admitting Unavailable BAZELLA, KELLI A Attending Unavailable GENERIC PROVIDER, NO ASSIGNED PCP Primary Care Unavailable SHAKER, ALBERTO Admitting Unavailable SHAKER, ALBERTO Attending Unavailable SHAKER, ALBERTO Referring Unavailable GENERIC PROVIDER, NO ASSIGNED PCP Primary Care Unavailable CARLINE POLLACK Attending Unavailable Allergies Allergy Classification Reported Allergen(s) Allergy Type Date of Onset Reaction(s) Facility (5 sources) hydrocortisone; Translations: [HYDROCORTISONE SOD SUCCINATE] Drug Allergy 08-07-20 15 [facility] (4 sources) metroNIDAZOLE; Translations: [METRONIDAZOLE HCL] Drug Allergy 08-07-20 15 [facility] (20 sources) midazolam; Translations: [MIDAZOLAM] Drug Allergy 03-12-20 15 Anxiety, Nausea Only [facility] (7 sources) Penicillins; Translations: [PENICILLINS] Propensity to adverse reactions to drug 02-04-20 14 Itching [facility] (8 sources) buPROPion; Translations: [BUPROPION] Drug Allergy 10-13-20 16 Hallucinations , Rash [facility] Work Phone: (2 sources) Ciprofloxacin; Translations: [CIPROFLOXACIN HCL] Drug Allergy 05-20-20 15 Swelling [facility] Work Phone: (8 sources) Ciprofloxacin; Translations: [CIPROFLOXACIN] Drug Allergy 05-20-20 15 Swelling [facility] Work Phone: (7 sources) Citalopram; Translations: [CITALOPRAM] Drug Allergy 11-12-19 17 Anxiety [facility] Work Phone: (2 sources) clonazePAM; Translations: [CLONAZEPAM] Drug Allergy 10-13-20 16 [facility] Work Phone: (2 sources) Hydrocortisone; Translations: [HYDROCORTISONE] Drug Allergy 08-07-20 15 [facility] Work Phone: (5 sources) methylPREDNISolone; Translations: [METHYLPREDNISOLONE] Drug Allergy 03-12-20 15 Anaphylaxis [facility] Work Phone: (1 source) methylPREDNISolone Drug Allergy 03-12-20 15 [facility] Work Phone: (7 sources) metroNIDAZOLE; Translations: [METRONIDAZOLE] Drug Allergy 08-07-20 15 Diarrhea [facility] Work Phone: (15 sources) Midazolam; Translations: [MIDAZOLAM HCL] Drug Allergy 09-23-20 12 Other [facility] Work Phone: (2 sources) Morphine; Translations: [MORPHINE] Drug Allergy 09-23-20 12 [facility] Work Phone: (1 source) Penicillins Propensity to adverse reactions to drug 09-01-20 15 Itching [facility] Work Phone: (6 sources) Sertraline; Translations: [SERTRALINE] Drug Allergy 10-08-20 12 Unknown [facility] Work Phone: (17 sources) Benzocaine; Translations: [BENZOCAINE] Drug Allergy 08-18-20 22 Anaphylaxis [facility] (17 sources) butamben; Translations: [BUTAMBEN] Drug Allergy 08-18-20 22 Anaphylaxis [facility] (13 sources) methylPREDNISolone; Translations: [methylprednisolone sodium succinate] Drug Allergy 08-18-20 Anaphylaxis [facility] (17 sources) Tetracaine; Translations: [TETRACAINE] Drug Allergy 08-18-20 22 Anaphylaxis [facility] (6 sources) Adhesive agent; Translations: [ADHESIVE] Propensity to adverse reactions to drug (disorder) 11-07-19 14 Rash [facility] (1 source) Amoxicillin; Translations: [AMOXICILLIN] Drug Allergy 02-04-20 14 [facility] (7 sources) gabapentin; Translations: [GABAPENTIN] Drug Allergy 12-25-19 14 Unknown, Other [facility] (6 sources) Propofol; Translations: [PROPOFOL] Drug Allergy 02-19-20 14 Other [facility] (1 source) Sertraline; Translations: [SERTRALINE HCL] Drug Allergy 10-08-20 12 [facility] (1 source) METHYLPREDNISOLONE SODIUM SUCC; Translations: [METHYLPREDNISOLONE SODIUM SUCC] Propensity to adverse reactions to drug (disorder) 09-23-20 12 [facility] (7 sources) Metoclopramide; Translations: [METOCLOPRAMIDE] Drug Allergy 02-22-20 24 Other [facility] (1 source) Penicillins Propensity to adverse reactions 02-04-20 14 Hives, Itching, Unknown [facility] (17 sources) Metoclopramide; Translations: [METOCLOPRAMIDE HCL] Drug Allergy 12-24-19 25 Other [facility] (17 sources) Solu-Medrol Mix-O-Vial; Translations: [SOLU-MEDROL MIX-O-VIAL] Propensity to adverse reactions 12-23-19 25 Anaphylaxis [facility] (3 sources) Penicillins Propensity to adverse reactions 02-04-20 14 Hives, Itching, Other, Unknown [facility] Work Phone: (1 source) Benzocaine Drug Allergy 04-30-20 [facility] (1 source) butamben Drug Allergy 04-30-20 [facility] (1 source) methylPREDNISolone Drug Allergy 04-30-20 [facility] (1 source) Metoclopramide Drug Allergy 04-30-20 [facility] (1 source) Midazolam Drug Allergy 04-30-20 [facility] (1 source) Sertraline Drug Allergy 04-30-20 [facility] (1 source) Tetracaine Drug Allergy 04-30-20 [facility] Medications Current Medications Medication Drug Class(es) Dates Sig (Normalized) Sig (Original) aspirin 81 mg delayed release oral tablet (14 sources) Platelet Aggregation Inhibitor, Nonsteroidal Anti-inflammatory Drug Start: 09-30-2024 End: 02-08-2025 take 1 tablet by mouth once daily aspirin 81 mg EC tablet 81 mg po daily 09/30/2024 Active atropine sulfate 0.025 mg / diphenoxylate hydrochloride 2.5 mg oral tablet (1 source) Anticholinergic, Cholinergic Muscarinic Antagonist, Antidiarrheal Start: 06-21-2017 take 1 tablet by mouth four times daily as needed for diarrhea diphenoxylate-atr opine 2.5-0.025 MG Tab take 1 tablet by mouth 4 times daily as needed for Diarrhea.. 15 tablet 1 06/21/2017 Active benzocaine 200 mg/ml / menthol 5 mg/ml topical spray (1 source) Standardized Chemical Allergen Start: 02-13-2025 benzonatate 100 mg oral capsule (2 sources) Non-narcotic Antitussive Start: 09-04-2018 End: 09-15-2018 take 1 capsule by mouth three times daily as needed for cough benzonatate (TESSALON) 100 MG capsule Take 1 (one) capsule (100 mg total) by mouth 3 (three) times a day as needed for cough. 20 capsule 0 09/08/2018 09/15/2018 Active bisacodyl 10 mg rectal suppository (1 source) Stimulant Laxative Start: 02-13-2025 take 10 mg rectal route every twenty-four hours as needed blood-glucose meter misc (15 sources) Start: 12-25-2024 blood-glucose meter misc Indications: Insulin controlled gestational diabetes mellitus (GDM) in second trimester ([facility]) Use for testing blood sugar fasting and 1 hour after each meal. 4-6 times per day during 1 each 12/25/2024 12:13 PM EST 12/25/2024 Active blood-glucose sensor (Dexcom G7 Sensor) device (15 sources) Start: 03-01-2025 blood-glucose sensor (Dexcom G7 Sensor) device Indications: Insulin controlled gestational diabetes mellitus (GDM) in second trimester ([facility]) Use 1 sensor and change every 10 days 3 each 2 03/01/2025 Active Start: 02-03-2025 End: 03-01-2025 blood-glucose sensor (Dexcom G7 Sensor) device Indications: Insulin controlled gestational diabetes mellitus (GDM) in second trimester ([facility]) Use 1 sensor and change every 10 days 3 each 02/03/2025 03/01/2025 Discontinued Start: 02-03-2025 blood-glucose sensor (Dexcom G7 Sensor) device Indications: Insulin controlled gestational diabetes mellitus (GDM) in second trimester ([facility]) Use 1 sensor and change every 10 days 3 each 02/03/2025 Active Start: 12-29-2024 blood-glucose sensor (Dexcom G7 Sensor) device Indications: Insulin controlled gestational diabetes mellitus (GDM) in second trimester ([facility]) Use 1 sensor and change every 10 days 3 each 11 01/01/2025 3:04 PM EST 12/29/2024 Active calcium carbonate 500 mg chewable tablet (1 source) Start: 02-11-2025 take 1 tablet by mouth four times daily as needed for gastroesophageal reflux disease 500 mg, oral, 4 times daily PRN, indigestion, heartburn, Starting on Sun02/11/25 at 1604, Each 500 mg calcium carbonate tablet = 200 mg of elemental calcium. 1 ml carboprost 0.25 mg/ml injection (1 source) Prostaglandin Analog Start: 04-11-2025 cefdinir 300 mg oral capsule (2 sources) Cephalosporin Antibacterial Start: 09-08-2018 End: 09-13-2018 take 1 capsule by mouth every twelve hours cefdinir (OMNICEF) 300 MG capsule Take 1 (one) capsule (300 mg total) by mouth every 12 (twelve) hours for 5 days. 10 capsule 0 09/08/2018 09/13/2018 Active Start: 09-08-2018 End: 09-08-2018 take 1 capsule by mouth every twelve hours 300 mg, Oral, Every 12 hours scheduled, First dose on 09/08/18 at 1100, For 5 doses uti Indication: CAP cyclobenzaprine hydrochloride 10 mg oral tablet (20 sources) Muscle Relaxant Start: 02-16-2025 take 10 mg by mouth once 10 mg, oral, Once, On Sun02/16/25 at 1445, For 1 dose Start: 02-10-2025 End: 03-01-2025 take 1 tablet by mouth three times daily as needed for muscle spasms cyclobenzaprine (Flexeril) 10 mg tablet Indications: care following vaginal delivery ([facility]) Take 1 tablet (10 mg) by mouth 3 times a day as needed for muscle spasms (cramping) for up to 14 days. 42 tablet 02/15/2025 11:26 AM EDT 02/15/2025 03/01/2025 Discontinued (Stop Taking at Discharge) Start: 02-08-2025 take 10 mg by mouth once 10 mg , oral, Once, On Sun02/09/25 at 1700, For 1 dose Start: 01-15-2025 End: 01-25-2025 take 1 tablet by mouth three times daily as needed for muscle spasms cyclobenzaprine (Flexeril) 5 mg tablet Indications: Headache in , antepartum ([facility]) Take 1 tablet (5 mg) by mouth 3 times a day as needed for muscle spasms for up to 10 days. 30 tablet 01/15/2025 1:14 PM EDT 01/15/2025 01/25/2025 Active Start: 01-15-2025 End: 01-15-2025 take 10 mg by mouth once 10 mg, oral, Once, On Sis at 0315, For 1 dose Start: 11-17-2023 take 10 mg by mouth three times daily Cyclobenzaprine Active 10 MG PO THREE TIMES A DAY November 17, 2023 1:00am Start: 09-05-2023 take 5 mg by mouth e very eight hours Cyclobenzaprine Active 5 MG PO Q8H September 05, 2023 12:00am diazePAM 10 mg oral tablet (19 sources) Benzodiazepine Start: 09-05-2023 End: 03-03-2025 take 10 mg by mouth every eight hours Diazepam Active 10 MG PO Q8H September 05, 2023 12:00am take 2.5 mg by mouth every eight hours as needed diazePAM (Valium) 2 mg tablet Take 2.5 mg by mouth every 8 hours if needed for anxiety. Active End: 02-15-2025 take 1 tablet by mouth every eight hours as needed diazePAM (Valium) 5 mg tablet Take 1 tablet (5 mg) by mouth every 8 hours if needed for anxiety. 02/15/2025 Discontinued (Stop Taking at Discharge) diphenhydrAMINE (BENADryl) injection 25 mg (1 source) Start: 02-13-2025 take 25 mg intravenously every six hours as needed diphenhydrAMINE (BENADryl) injection 25 mg docusate sodium 100 mg oral capsule (1 source) Start: 02-13-2025 take 100 mg by mouth twice daily 100 mg, oral, 2 times daily, First dose on Sun02/13/25 at 1245 docusate sodium 50 mg / sennosides, jail 8.6 mg oral tablet (1 source) Start: 02-12-2025 doxepin hydrochloride 75 mg oral capsule (20 sources) Tricyclic Antidepressant Start: 12-23-2024 End: 03-02-2025 take 1 capsule by mouth once daily at bedtime doxepin (SINEquan) 75 mg capsule Indications: Depression affecting in third trimester, antepartum ([facility]) Take 1 capsule (75 mg) by mouth once daily at bedtime for 14 days. 14 capsule 02/16/2025 5:49 PM EDT 02/15/2025 Active Start: 09-05-2023 take 6 mg by mouth once daily Doxepin Active 6 MG PO DAILY September 05, 2023 12:00am Start: 09-05-2023 take 50 mg by mouth once daily Doxepin Active 50 MG PO DAILY September 05, 2023 12:00am 21 day ethinyl estradiol 0.568247 mg/hr / etonogestrel 0.005 mg/hr vaginal ring (1 source) Progestin, Estrogen Start: 10-07-2018 ethinyl estradiol-etonogestrel (NUVARING) 0.12-0.015 MG/24HR Ring ring Insert 1 Each vaginally As directed. Insert and leave in continuously for 3 weeks; Remove for 1 week; repeat with new ring. 3 Each 10/07/2018 Active Start: 10-07-2018 ethinyl estrad iol-etonogestrel (NUVARING) 0.12-0.015 MG/24HR Ring ring Insert 1 Each vaginally As directed. Insert and leave in continuously for 3 weeks; Remove for 1 week; repeat with new ring. 3 Each 10/07/2018 Active furosemide 40 mg oral tablet (7 sources) Loop Diuretic Start: 03-01-2025 take 40 mg by mouth once 40 mg, oral, Once, On Sun03/01/25 at 1800, For 1 dose Start: 03-01-2025 End: 03-10-2026 take 1 tablet by mouth once daily furosemide (Lasix) 40 mg tablet Indications: Bilateral lower extremity edema Take 1 tablet (40 mg) by mouth once daily. 5 tablet 03/10/2025 03/10/2026 Active Start: 09-07-2018 End: 09-07-2018 furosemide (LASIX) injection 20 mg Start: 09-06-2018 End: 09-06-2018 furosemide (LASIX) injection 20 mg glucagon (rdna) 1 mg injection (2 sources) Antihypoglycemic Agent Start: 12-23-2024 1 mg, i ntramuscular, Every 15 min PRN, blood glucose 41 to 70 mg/dL - see comments, For blood glucose 41 to 70 mg/dL and no IV access, Starting on Sun12/23/24 at 1819, Give until blood glucose is 100 mg/dL or greater. If patient DOES NOT HAVE secure IV access & patient is unconscious, NPO or is unable to eat or drink. Glucose Monitor Prescription (1 source) Start: 02-12-2018 GLUCOSE MONITO R PRESCRIPTION For fasting and 2 hours after meals 1 Each 1 02/12/2018 Active 1 ml hydrALAZINE hydrochloride 20 mg/ml injection (4 sources) Arteriolar Vasodilator Start: 03-01-2025 5 mg, i ntravenous, Administer over 2 Minutes, Once as needed, Systolic greater than or equal to 160 OR Diastolic greater than or equal to 110, Starting on 03/01/25 at 1648, For 1 dose, Consult provider prior to administration. Push over more than 2 minutes. Systolic greater than or equal to 160 OR Diastolic greater than or equal to 110. Repeat blood pressure in 20 minutes. Contraindication: coronary artery disease (CAD); Caution in suspected CAD Start: 02-16-2025 5 mg, intraven ous, Administer over 2 Minutes, Once as needed, systolic blood pressure greater than or equal to 160 OR diastolic blood pressure greater than or equal to 110, Starting on Sun02/16/25 at 1417, For 1 dose, Consult provider prior to administration. Push over more than 2 minutes. Repeat blood pressure in 20 minutes. Start: 02-13-2025 Start: 12-23-2024 5 mg, intraven ous, Administer over 2 Minutes, Once as needed, Systolic greater than or equal to 160 OR Diastolic greater than or equal to 110, Starting on Tu12/23/24 at 1741, For 1 dose, Consult provider prior to administration. Push over more than 2 minutes. Systolic greater than or equal to 160 OR Diastolic greater than or equal to 110. Repeat blood pressure in 20 minutes. Contraindication: coronary artery disease (CAD); Caution in suspected CAD hydrOXYzine hydrochloride 10 mg oral tablet (8 sources) Antihistamine Start: 02-15-2025 End: 03-01-2025 take 2.5 tablets by mouth twice daily as needed for anxiety hydrOXYzine HCL (Atarax) 10 mg tablet Indications: Depression affecting in third trimester, antepartum ([facility]) Take 2.5 tablets (25 mg) by mouth 2 times a day as needed for anxiety for up to 14 days. 30 tablet 02/15/2025 11:26 AM EDT 02/15/2025 Active Start: 02-12-2025 take 25 mg by mouth once 25 mg , oral, Once, On Sis 02/12/25 at 1245, For 1 dose Start: 02-09-2025 End: 02-12-2025 take 1 tablet by mouth every eight hours as needed 25 mg, oral, Every 8 hours PRN, anxiety, Starting on 02/09/25 at 0527 hyoscyamine sulfate 0.125 mg oral tablet (1 source) Start: 07-09-2018 take 250 ug by mouth every four hours as needed hyoscyamine 0.125 MG Tab Take 2 tablets by mouth every 4 hours as needed for Cramping for up to 5 days. 30 tablet 0 07/09/2018 Active ibuprofen 600 mg oral tablet (2 sources) Nonsteroidal Anti-inflammatory Drug Start: 02-12-2025 Start: 09-05-2018 End: 09-06-2018 take 1 tablet by mouth every twenty-four hours as needed ibuprofen (ADVIL,MOTRIN) tablet 400 mg isopropyl alcohol 0.7 ml/ml medicated pad (16 sources) Start: 12-25-2024 alcohol swabs pads, medicated Indications: Insulin controlled gestational diabetes mellitus (GDM) in second trimester ([facility]) Use 1, up to 5 times a day 200 each 3 01/22/2025 10:25 AM EDT 12/25/2024 Active Start: 02-12-2018 Alcohol Swabs (ALCOHOL PREP) Pads Use to prep before checking blood sugar 1 Each 02/12/2018 Active labetalol hydrochloride 5 mg/ml injectable solution (6 sources) beta-Adrenergic Jennie Start: 03-01-2025 20 mg, intravenous, Administer over 2 Minutes, Once as needed, Systolic greater than or equal to 160 OR Diastolic greater than or equal to 110, Starting on Sun03/01/25 at 1648, For 1 dose, Consult provider prior to administration. Push over more than 2 minutes. Systolic greater than or equal to 160 OR Diastolic greater than or equal to 110. Repeat blood pressure in 10 minutes. Contraindications: active asthma, heart disease, heart failure, maternal bradycardia Start: 02-16-2025 20 mg, intrave nous, Administer over 2 Minutes, Once as needed, systolic blood pressure greater than or equal to 160 OR diastolic blood pressure greater than or equal to 110, Starting on Sun02/16/25 at 1417, For 1 dose, Consult provider prior to administration. Push over more than 2 minutes. Repeat blood pressure in 10 minutes. Start: 02-13-2025 Start: 02-08-2025 End: 02-08-2025 Starting on Sun02/08/25 at 19 12, For 1 dose, Created by cabinet override Start: 02-08-2025 End: 02-08-2025 20 mg, intravenous, Administ er over 2 Minutes, Once as needed, systolic blood pressure greater than or equal to 160 OR diastolic blood pressure greater than or equal to 110, Starting on Sun02/08/25 at 1904, For 1 dose, Consult provider prior to administration. Push over more than 2 minutes. Repeat blood pressure in 10 minutes. Start: 12-23-2024 20 mg, intrave nous, Administer over 2 Minutes, Once as needed, Systolic greater than or equal to 160 OR Diastolic greater than or equal to 110, Starting on Sun12/23/24 at 1741, For 1 dose, Consult provider prior to administration. Push over more than 2 minutes. Systolic greater than or equal to 160 OR Diastolic greater than or equal to 110. Repeat blood pressure in 10 minutes. Contraindications: active asthma, heart disease, heart failure, maternal bradycardia lanolin 1000 mg/ml topical cream (1 source) Start: 02-13-2025 Lidocaine (5 sources) Antiarrhythmic, Amide Local Anesthetic Start: 03-01-2025 inject 0.5 mL by subcutaneous injection once as needed 0.5 mL, subcutaneous, Once as needed, Prior to IV insertion, Starting on Sun03/01/25 at 1648, For 1 dose Start: 02-16-2025 inject 0.5 mL by sub cutaneous injection once as needed 0.5 mL, subcutaneous, Once as needed, Prior to IV insertion, Starting on Sun02/16/25 at 1417, For 1 dose Start: 02-13-2025 apply 1 dose transde rmal route once daily 1 patch, transdermal, Administer over 12 Hours, Daily, First dose on Sun02/13/25 at 0145, Apply to affected area. Patch will remain on for 12 hours, then removed for [address] patch directly over any surgical incisions or wounds. Start: 12-23-2024 Start: 09-06-2022 End: 09-16-2022 lidocaine 5% topical patch A pply 1 patch(es), Topical, Daily, X 10 day(s), # 10 patch(es), 0 Refill(s) Start Date: 09/06/22 Stop Date: 09/16/22 Status: Ordered lisinopril 2.5 mg oral tablet (1 source) Angiotensin Converting Enzyme Inhibitor Start: 03-18-2025 take 1 tablet by mouth once daily lisinopril 2.5 mg tablet Indications: Benign essential HTN Take 1 tablet (2.5 mg) by mouth once daily. 30 tablet 03/18/2025 Active loperamide hydrochloride 2 mg oral capsule (4 sources) Opioid Agonist Start: 04-15-2025 take 1 capsule by mouth four times daily as needed for diarrhea loperamide (Imodium) 2 mg capsule Indications: Crohn's disease with complication, unspecified gastrointestinal tract location Take 1 capsule (2 mg) by mouth 4 times a day as needed for diarrhea. 30 capsule 04/15/2025 Active Start: 02-13-2025 Start: 07-08-2024 loperamide (Im odium) 2 mg capsule Take 1 capsule (2 mg) by mouth. 07/08/2024 Active magnesium amino acid chelate 133 mg oral tablet (1 source) Start: 03-18-2025 End: 03-18-2026 take 1 tablet by mouth twice daily magnesium, amino acid chelate, 133 mg tablet Indications: Hypomagnesemia Take 1 tablet (133 mg) by mouth 2 times a day. 60 tablet 03/18/2025 03/18/2026 Active magnesium hydroxide 80 mg/ml oral suspension (2 sources) Start: 02-13-2025 Start: 12-23-2024 magnesium oxide 400 mg oral tablet (17 sources) Start: 01-15-2025 End: 02-15-2025 take 0.5 tablet by mouth twice daily as needed for headache magnesium oxide (Mag-Ox) 400 mg (241.3 mg magnesium) tablet Indications: Headache in , antepartum ([facility]) Take 0.5 tablets (200 mg) by mouth 2 times a day as needed (Headache). 30 tablet 01/15/2025 1:14 PM EDT 01/15/2025 02/15/2025 Discontinued (Stop Taking at Discharge) Start: 01-08-2025 End: 01-08-2026 take 1 tablet by mouth once daily at bedtime magnesium oxide (Mag-Ox) 400 mg (241.3 mg magnesium) tablet Indications: headache in second trimester ([facility]) Take 1 tablet (400 mg) by mouth once daily. Take a bedtime 30 tablet 11 01/08/2025 01/08/2026 Active 500 ml magnesium sulfate 40 mg/ml injection (2 sources) Start: 02-08-2025 End: 02-10-2025 2 g/hr (50 mL/hr), intravenous, Continuous, Starting on Sun02/09/25 at 1700, Monitor blood pressure, pulse, respirations and pulse oximetry every 15 minutes first hour of Magnesium Sulfate administration, then every hour. Monitor for signs and symptoms of magnesium toxicity including: STEREOTYPER HELPER depression, diminished DTRs, increasing muscle weakness, respirations 1 ml methylergonovine maleate 0.2 mg/ml injection (1 source) Ergot Derivative Start: 02-13-2025 miconazole nitrate 0.02 mg/mg topical powder (1 source) Azole Antifungal Start: 09-13-2018 miconazole 2 % Powder powder Indications: Intertriginous candidiasis Apply 1 Application topically 4 times daily as needed for Other (Rash). 09/13/2018 Active miSOPROStol 0.2 mg oral tablet (1 source) Prostaglandin E1 Analog Start: 02-13-2025 modafinil 200 mg oral tablet (12 sources) Sympathomimetic-li ke Agent Start: 09-05-2023 take 1 tablet by mouth once daily modafinil (Provigil) 200 mg tablet Take 1 tablet (200 mg) by mouth once daily. 09/05/2023 Active End: 02-15-2025 take 0.5 tablet by mouth once daily modafinil (Provigil) 200 mg tablet Take 0.5 tablets (100 mg) by mouth once daily. 02/15/2025 Discontinued (Stop Taking at Discharge) naproxen 500 mg oral tablet (5 sources) Nonsteroidal Anti-inflammatory Drug Start: 11-17-2023 take 1 tablet by mouth twice daily Naproxen (Naprosyn) 500 mg tablet Active 500 MG PO TWICE A DAY November 17, 2023 1:00am NIFEdipine 10 mg oral capsule (19 sources) Dihydropyridine Calcium Channel Jennie Start: 03-01-2025 take 10 mg by mouth once as needed 10 mg, oral, Once as needed, Systolic greater than or equal to 160 OR Diastolic greater than or equal to 110, Starting on Sun03/01/25 at 1648, For 1 dose, Consult provider prior to administration. Start: 02-16-2025 take 1 capsule by [facility] once as needed 10 mg, oral, Once as needed, systolic blood pressure greater than or equal to 160 OR diastolic blood pressure greater than or equal to 110, Starting on Sun02/16/25 at 1418, For 1 dose, Consult provider prior to administration. Capsules administered orally and swallowed whole; Do not puncture or crush; Do not administer sublingually Start: 02-16-2025 End: 04-17-2025 take 1 tablet by mouth once daily before mealtime NIFEdipine ER (Adalat CC) 60 mg 24 hr tablet Indications: Severe preeclampsia, third trimester ([facility]) Take 1 tablet (60 mg) by mouth once daily in the morning. Take before meals. Do not crush, chew, or split. 30 tablet 1 02/15/2025 11:26 AM EDT 02/16/2025 04/17/2025 Active Start: 02-13-2025 take 60 mg by mouth once daily before breakfast 60 mg, oral, Daily before breakfast, First dose (after last modification) on Sun02/13/25 at 0700, Give on an empty stomach. Do not crush, chew, or split. Start: 02-13-2025 Start: 02-08-2025 End: 04-16-2025 take 1 tablet by mouth once daily at bedtime NIFEdipine ER (Adalat CC) 30 mg 24 hr tablet Indications: Severe preeclampsia, third trimester ([facility]) Take 1 tablet (30 mg) by mouth once daily at bedtime. Do not crush, chew, or split. 30 tablet 1 02/15/2025 11:26 AM EDT 02/15/2025 04/16/2025 Active Start: 12-23-2024 take 10 mg by mouth once as needed 10 mg, oral, Once as needed, Systolic greater than or equal to 160 OR Diastolic greater than or equal to 110, Starting on Sun12/23/24 at 1741, For 1 dose, Consult provider prior to administration. ondansetron 4 mg oral tablet (20 sources) Serotonin-3 Receptor Antagonist Start: 03-18-2025 take 1 tablet by mouth four times daily as needed for nausea ondansetron (Zofran) 4 mg tablet Indications: Nausea Take 1 tablet (4 mg) by mouth 4 times a day as needed for nausea or vomiting. 30 tablet 2 03/18/2025 Active Start: 02-16-2025 take 1 tablet by job th every six hours as needed ondansetron (Zofran) tablet 4 mg Start: 02-13-2025 take 1 tablet by job th every six hours as needed ondansetron (Zofran) tablet 4 mg Start: 02-11-2025 End: 02-11-2025 4 mg, intravenous, Once, On Sun02/11/25 at 1645, For 1 dose, When administering via IV Push, administer over 3-5 minutes. Start: 01-08-2025 take 1 tablet by job th every six hours as needed ondansetron (Zofran) tablet 4 mg Start: 12-23-2024 take 1 tablet by job th every six hours as needed ondansetron (Zofran) tablet 4 mg Start: 12-05-2023 take 4 mg by mouth e very eight hours as needed Ondansetron Active 4 MG PO EVERY 8 HOURS NEEDED February 22, 2024 12:00am Start: 12-14-2022 End: 09-05-2023 take 4 mg by mouth every eight hours as needed Ondansetron Discontinued 4 MG PO EVERY 8 HOURS NEEDED December 14, 2022 1:00am September 05, 2023 3:54am Start: 09-03-2018 End: 09-03-2018 ondansetron (ZOFRAN) injecti on 4 mg Start: 09-03-2018 End: 09-03-2018 ondansetron (ZOFRAN) injecti on 8 mg 1 ml oxytocin 10 unt/ml injection (1 source) Oxytocic Start: 02-13-2025 pantoprazole 40 mg delayed release oral tablet (17 sources) Proton Pump Inhibitor Start: 01-08-2025 End: 01-08-2026 take 1 tablet by mouth once daily before mealtime pantoprazole (Protonix) 40 mg EC tablet Indications: Gastroesophageal reflux disease without esophagitis Take 1 tablet (40 mg) by mouth once daily in the morning. Take before meals. Do not crush, chew, or split. 30 tablet 11 01/08/2025 01/08/2026 Active PNV NO.122/IRON/FOLIC ACID ( MULTI ORAL) (2 sources) take 1 tablet by mouth once daily PNV NO.122/IRON/FOLIC ACID ( MULTI ORAL) Take 1 tablet by mouth daily Active polyethylene glycol 3350 65995 mg powder for oral solution (2 sources) Osmotic Laxative Start: 02-13-2025 Start: 12-23-2024 Zxsyvpgg-Hws-Fd-FA ( 1 + IRON PO) (1 source) Pmxjgyrm-Luc-Qd-FA ( 1 + IRON PO) Take 1 tablet by mouth daily. Active vitamin (iron-folic) tablet 1 tablet (1 source) Start: semaglutide 0.25 mg or 0.5 mg (2 mg/3 mL) pen injector (2 sources) Start: inject 0.5 mg by subcutaneous injection every week semaglutide 0.25 mg or 0.5 mg (2 mg/3 mL) pen injector Indications: Type 2 diabetes mellitus without complication, with long-term current use of insulin Inject 0.5 mg under the skin 1 (one) time per week. 3 mL 05/13/2025 Active Start: 03-18-2025 End: 05-13-2025 inject 0.25 mg by subcutaneous injection once semaglutide 0.25 mg or 0.5 mg (2 mg/3 mL) pen injector Indications: Type 2 diabetes mellitus without complication, with long-term current use of insulin Inject 0.25 mg under the skin every 14 (fourteen) days. 3 mL 03/18/2025 05/13/2025 Discontinued (Reorder) simethicone 80 mg chewable t ablet (2 sources) Start: 02-13-2025 Start: 12-23-2024 spironolactone 50 mg oral tablet (5 sources) Aldosterone Antagonist Start: 05-13-2025 End: 05-13-2026 take 1 tablet by mouth once daily spironolactone (Aldactone) 50 mg tablet Indications: Benign essential HTN Take 1 tablet (50 mg) by mouth once daily. 30 tablet 05/13/2025 05/13/2026 Active Start: 03-03-2025 End: 03-03-2026 take 1 tablet by mouth once daily spironolactone (Aldactone) 25 mg tablet Indications: Benign essential HTN Take 1 tablet (25 mg) by mouth once daily. 30 tablet 03/03/2025 05/13/2025 Discontinued (Reorder) 10 ml tranexamic acid 100 mg/ml injection (1 source) Antifibrinolytic Agent Start: 02-13-2025 End: 02-15-2025 traZODone hydrochloride 50 mg oral tablet (2 sources) Serotonin Reuptake Inhibitor Start: 05-13-2025 End: 05-13-2026 take 1 tablet by mouth once daily at bedtime traZODone (Desyrel) 50 mg tablet Indications: Other insomnia Take 1 tablet (50 mg) by mouth once daily at bedtime. 30 tablet 11 05/13/2025 05/13/2026 Active Start: 09-03-2018 End: 09-08-2018 take 50 mg by mouth once as needed for sleep 50 mg, Oral, Nightly PRN, sleep, Starting Sun09/03/18 at 1738 [] May repeat times 1 in 30 minutes if still awake. witch carlo 500 mg/ml medica steff pad (1 source) Start: 02-13-2025 Completed/Discontinued Medications Medication Drug Class(es) Dates Sig (Normalized) Sig (Original) acetaminophen 325 mg oral tablet (20 sources) Start: 02-16-2025 End: 02-16-2025 take 975 mg by mouth once as needed for pain 975 mg, oral, Once, On 02/16/25 at 1445, For 1 dose, If ordered PRN for pain, nurse is permitted to administer this medication for higher pain scores based on patient preference? Yes Start: 02-15-2025 take 3 tablets by mo uth every six hours for pain acetaminophen (Tylenol) 325 mg tablet Indications: care following vaginal delivery ([facility]) Take 3 tablets (975 mg) by mouth every 6 hours if needed for mild pain (1 - 3) or moderate pain (4 - 6). 120 tablet 02/15/2025 11:26 AM EDT 02/15/2025 Active Start: 02-09-2025 End: 02-12-2025 take 975 mg by mouth every six hours as needed for pain 975 mg, oral, Every 6 hours scheduled, First dose on Sis 02/12/25 at 1400, Give with Ibuprofen, If ordered PRN for pain, nurse is permitted to administer this medication for higher pain scores based on patient preference? Yes Start: 02-09-2025 End: 02-09-2025 take 975 mg by mouth once as needed for pain 975 mg, oral, Once, On 02/09/25 at 0345, For 1 dose, If ordered PRN for pain, nurse is permitted to administer this medication for higher pain scores based on patient preference? Yes Start: 02-08-2025 End: 02-08-2025 take 650 mg by mouth once as needed for pain 650 mg, oral, Once, On Sun02/08/25 at 2345, For 1 dose, If ordered PRN for pain, nurse is permitted to administer this medication for higher pain scores based on patient preference? Yes Start: 01-15-2025 End: 01-15-2025 take 975 mg by mouth once as needed for pain 975 mg, oral, Once, On Sis 01/15/25 at 0315, For 1 dose, If ordered PRN for pain, nurse is permitted to administer this medication for higher pain scores based on patient preference? Yes Start: 01-08-2025 End: 01-08-2025 take 975 mg by mouth once as needed for pain 975 mg, oral, Once, On Sis 01/08/25 at 1630, For 1 dose, If ordered PRN for pain, nurse is permitted to administer this medication for higher pain scores based on patient preference? Yes Start: 12-24-2024 take 1 tablet by job th every six hours as needed 975 mg, oral, Every 6 hours PRN, pain mild (1-3), first line, headaches, fever (temp greater than 38.0 C), Starting on Sun12/24/24 at 1236, If ordered PRN for pain, nurse is permitted to administer this medication for higher pain scores based on patient preference? Yes Start: 09-04-2018 End: 09-08-2018 take 2 tablets by mouth every six hours as needed acetaminophen (TYLENOL) tablet 650 mg Start: 09-03-2018 End: 09-08-2018 take 650 mg rectal route every six hours as needed acetaminophen (TYLENOL) suppository 650 mg Start: 09-03-2018 End: 09-03-2018 acetaminophen (TYLENOL) tabl et 975 mg End: 09-03-2018 take 4 tablets by mouth twice daily acetaminophen (TYLENOL) 500 MG tablet Take 2,000 mg by mouth 2 (two) times a day 09/03/2018 Discontinued acetaminophen 325 mg / HYDROcodone bitartrate 5 mg oral tablet (12 sources) Opioid Agonist Start: 11-17-2023 End: 03-03-2025 HYDROcodone-acetaminophen ([place]) 5-325 mg tablet Take by mouth. 11/17/2023 03/03/2025 Discontinued (Med List Cleanup) Start: 11-17-2023 take 1 tablet by job th every four hours as needed Hydrocodone-Acetaminophen Active 1 TABLE T PO EVERY 4 HOURS NEEDED 10 December 05, 2023 Start: 09-03-2018 End: 09-12-2018 take 1 tablet by mouth every four hours as needed HYDROcodone-acetaminophen (NORCO) 5-325 mg per tablet Indications: Acute pyelonephritis , Crohn's disease of small and large intestines with complication (HCC) Take 1 (one) tablet by mouth every 4 (four) hours as needed (. 20 tablet 0 09/08/2018 09/12/2018 Active Start: 07-09-2018 take 1-2 tablets by mouth every six hours as needed for pain hydroCODone-acetaminophen 5-325 MG Tab tablet Indications: Acute Crohn's disease without complication , Crohn's disease of small intestine with complication Take 1-2 tablets by mouth every 6 hours as needed for Moderate Pain for up to 20 doses. 20 tablet 0 07/09/2018 Active albuterol 0.833 mg/ml / ipratropium bromide 0.167 mg/ml inhalant solution (1 source) Anticholinergic, beta2-Adrenergic Agonist Start: 09-06-2018 End: 09-08-2018 ipratropium-albuterol (DUO-NEB) 0.5-2.5 mg/3 ml nebulizer solution 3 mL amoxicillin 875 mg / clavulanate 125 mg oral tablet (9 sources) Penicillin-class Antibacterial Start: 01-21-2023 End: 09-05-2023 take 1 tablet by mouth twice daily Amoxicillin-Pot Clavulanate Discontinued 1 TABLET PO TWICE A DAY January 21, 2023 12:00am September 05, 2023 3:51am ARIPiprazole 5 mg oral tablet (5 sources) Atypical Antipsychotic Start: 04-27-2018 End: 03-03-2025 take 5 mg by mouth once daily 5 mg, Oral, Daily, First dose on Sun09/03/18 at 1830 betamethasone 3 mg/ml / betamethasone acetate 3 mg/ml injectable suspension (1 source) Corticosteroid Start: 02-08-2025 End: 02-09-2025 inject 12 mg by intramuscular injection every twenty-four hours 12 mg, intramuscular, Every 24 hours, First dose on Sun02/08/25 at 2000, For 2 doses caffeine 200 mg oral tablet (4 sources) Central Nervous System Stimulant, Methylxanthine Start: 02-11-2025 End: 02-11-2025 100 mg, oral, Once, On Sun02/11/25 at 1430, For 1 dose, Dose = mg of caffeine. (Order only half the usual caffeine citrate or caffeine-sodium benzoate dose) Start: 02-09-2025 End: 02-10-2025 200 mg, oral, Once, On Sun at 0830, For 1 dose, Dose = mg of caffeine. (Order only half the usual caffeine citrate or caffeine-sodium benzoate dose) Start: 12-24-2024 take 1 tablet by job th every four hours as needed 100 mg, oral, Every 4 hours PRN, headaches, Starting on Sun12/24/24 at 1905, Dose = mg of caffeine. (Order only half the usual caffeine citrate or caffeine-sodium benzoate dose) calcium chloride 0.001 meq/ml / glucose 50 mg/ml / potassium chloride 0.004 meq/ml / sodium chloride 0.103 meq/ml / sodium lactate 0.028 meq/ml injectable solution (1 source) Start: 02-11-2025 End: 02-12-2025 take 75 mL intravenously every hour 75 mL/hr, intravenous, Continuous, Starting on Sun02/11/25 at 1730, For 1 day calcium chloride 0.0014 meq/ml / potassium chloride 0.004 meq/ml / sodium chloride 0.103 meq/ml / sodium lactate 0.028 meq/ml injectable solution (8 sources) Start: 02-11-2025 End: 02-12-2025 500 mL, intravenous, at 999 mL/hr, Administer over 0.5 Hours, Once as needed, resuscitation, Starting on Sun02/11/25 at 202, For 1 dose, Pre-Delivery Start: 02-08-2025 End: 02-13-2025 take 75 mL intravenously every hour 75 mL/hr, intravenous, Continuous, Starting on Sis 02/12/25 at 1530, For 1 day Start: 01-15-2025 End: 01-15-2025 500 mL, intravenous, at 250 mL/hr, Administer over 2 Hours, Once, On Sis 01/15/25 at 0315, For 1 dose Start: 09-03-2018 End: 09-05-2018 lactated Ringers infusion ceFAZolin 2000 mg injection (3 sources) Cephalosporin Antibacterial Start: 09-04-2018 End: 09-08-2018 take 2000 mg intravenous route every eight hours ceFAZolin (ANCEF) IVPB 2 g (premix) Start: 09-03-2018 End: 09-04-2018 take 1000 mg intravenous route every twelve hours ceFAZolin (ANCEF) IVPB 1 g (premix) cyproheptadine hydrochloride 4 mg oral tablet (1 source) Start: 02-09-2025 End: 02-09-2025 take 4 mg by mouth once 4 mg, oral, Once, On Sun02/09/25 at 1830, For 1 dose Start: 02-09-2025 End: 02-09-2025 take 4 mg by mouth once 4 mg, oral, Once, On 02/09 at 1830, For 1 dose dicyclomine hydrochloride 20 mg oral tablet (20 sources) Anticholinergic Start: 12-14-2022 End: 09-05-2023 take 20 mg by mouth three times daily before mealtime Dicyclomine Discontinued 20 MG PO THREE TIMES DAILY BEFORE MEALS December 14, 2022 1:00am September 05, 2023 3:51am Start: 08-18-2022 End: 09-05-2023 take 20 mg by mouth three times daily Dicyclomine Discontinued 20 MG PO THREE TIMES A DAY January 21, 2023 12:00am September 05, 2023 3:54am Start: 09-03-2017 take 1 tablet by job th every six hours for muscle spasms dicyclomine 20 MG Tab tablet take 1 tablet by mouth every 6 hours. For abdominal spasms 30 tablet 0 09/03/2017 Active diphenhydrAMINE (9 sources) Histamine-1 Receptor Antagonist Start: 02-12-2025 End: 04-10-2025 50 mg, intravenous, Once, On Sis 02/12/25 at 2330, For 1 dose, If giving IV push, max rate of 25 mg/min. Start: 02-11-2025 End: 02-12-2025 take 50 mg intravenously every six hours as needed 50 mg, intravenous, Every 6 hours PRN, itching, nausea/vomiting, first line, sleep, anxiety, Starting on Sun02/11/25 at 0337, If giving IV push, max rate of 25 mg/min. Start: 02-10-2025 End: 02-10-2025 50 mg, intravenous, Once, On Sun02/10/25 at 0545, For 1 dose, If giving IV push, max rate of 25 mg/min. Start: 02-09-2025 End: 02-09-2025 50 mg, intravenous, Once, On Sun02/09/25 at 2145, For 1 dose, If giving IV push, max rate of 25 mg/min. Start: 02-09-2025 End: 02-11-2025 take 25 mg intravenously every six hours as needed 25 mg, intravenous, Every 6 hours PRN, itching, nausea/vomiting, first line, sleep, anxiety, Starting on Sun02/09/25 at 0537, If giving IV push, max rate of 25 mg/min. Start: 02-08-2025 End: 02-08-2025 take 1 dose by mouth once 25 mg, intravenous, Administ er over 2 Minutes, Once, On 02/08/25 at 1930, For 1 dose, Give IV if patient unable to take orally. Start: 01-15-2025 End: 01-15-2025 25 mg, intravenous, Once, On Sis 01/15/25 at 0345, For 1 dose, If giving IV push, max rate of 25 mg/min. Start: 12-24-2024 take 25 mg intraveno usly every six hours as needed 25 mg, intravenous, Every 6 hours PRN, sleep, Starting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 Resolved: 7 10-22-2017 Chronic Gastrointestinal hemorrhage (13 sources) Hematochezia; Translations: [Rectal hemorrhage] Onset: 5 Resolved: 6 11-28-2015 Episodic Genitourinary symptoms and ill-defined conditions (1 source) Dysuria; Translations: [Dysuria] Onset: 5 Episodic Headache; including migraine (2 sources) Headache; including migraine; Translations: [Headache, unspecified] Onset: 5 Hypertension complicating ; childbirth and the puerperium (5 sources) Benign essential hypertension in obstetric context; Translations: [Pre-eclampsia added to pre-existing hypertension] Onset: 6 Resolved: 7 10-22-2017 Chronic Hypertension complicating ; childbirth and the puerperium (20 sources) Severe pre-eclampsia; Translations: [Severe pre-eclampsia, unspecified trimester] Onset: 7 Resolved: 5 10-22-2017 Episodic Intestinal infection (1 source) Shigellosis, unspecified; Translations: [Shigellosis, unspecified] Onset: 9 Episodic Malaise and fatigue (10 sources) Asthenia; Translations: [Weakness] Onset: 5 09-13-2023 Episodic Menstrual disorders (4 sources) Amenorrhea; Translations: [Dysmenorrhea, unspecified] Onset: 3 Chronic Mood disorders (8 sources) Depressive disorder; Translations: [Unspecified mood [affective] disorder] Onset: 5 Resolved: 7 10-22-2017 Chronic Mood disorders (3 sources) Mood disorders; Translations: [Depression, unspecified] Onset: 5 Mycoses (1 source) Candidal intertrigo; Translations: [Intertriginous candidiasis] Onset: 8 09-13-2018 Episodic Nonspecific chest pain (8 sources) Chest pain; Translations: [Chest pain, unspecified] 06-05-2023 Episodic Normal and/or delivery (19 sources) ; Translations: [Delivery normal] Onset: 5 Resolved: 5 09-01-2015 Episodic Nutritional deficiencies (2 sources) Vitamin D deficiency; Translations: [Vitamin D deficiency, unspecified] Onset: 5 10-10-2017 Chronic Other aftercare (2 sources) MCFP (current) use of insulin; Translations: [MCFP (current) use of insulin (Multi)] Onset: 5 Episodic Other complications of (3 sources) Maternal obesity complicating , childbirth and the puerperium, antepartum; Translations: [Obesity complicating , unspecified trimester] 01-01-2025 Chronic Other complications of (3 sources) Obesity complicating , unspecified trimester; Translations: [Obesity complicating , unspecified trimester] Onset: 5 Chronic Other complications of (2 sources) Obesity complicating , third trimester; Translations: [Obesity complicating , third trimester ([facility])] Onset: 5 Chronic Other complications of (3 sources) Supervision of high risk , unspecified, unspecified trimester; Translations: [Supervision of high risk , unspecified, unspecified trimester] Onset: 7 Episodic Other complications of (2 sources) Multigravida of advanced maternal age; Translations: [Supervision of elderly multigravida, unspecified trimester] 01-01-2025 Episodic Other complications of (5 sources) Anxiety in ; Translations: [Other mental disorders complicating , second trimester] Onset: 5 01-01-2025 Episodic Other complications of (12 sources) Depressive disorder; Translations: [Other mental disorders complicating , second trimester] Onset: 5 01-01-2025 Episodic Other complications of (1 source) Maternal care for other abnormalities of cervix, unspecified trimester; Translations: [Maternal care for other abnormalities of cervix, unspecified trimester] Onset: 5 Episodic Other complications of (1 source) Supervision of other high risk pregnancies, unspecified trimester; Translations: [Supervision of other high risk pregnancies, unspecified trimester] Onset: 5 Episodic Other connective tissue disease (8 sources) Pain in right arm; Translations: [Pain in right arm] 06-05-2023 Episodic Other endocrine disorders (2 sources) Polycystic ovaries; Translations: [PCOS (polycystic ovarian syndrome)] Onset: 8 09-13-2018 Chronic Other female genital disorders (3 sources) H/O: premature delivery; Translations: [Personal history of pre-term labor] Onset: 7 Resolved: 7 10-22-2017 Episodic Other female genital disorders (1 source) Recurrent loss; Translations: [Recurrent loss] Onset: 5 Episodic Other gastrointestinal disorders (2 sources) Irritable bowel syndrome; Translations: [Irritable bowel syndrome without diarrhea] Onset: 5 10-10-2017 Chronic Other gastrointestinal disorders (10 sources) Diarrhea; Translations: [Diarrhea, unspecified] Onset: 5 Resolved: 6 12-27-2015 Episodic Other gastrointestinal disorders (12 sources) History of irritable bowel syndrome; Translations: [Personal history of other diseases of the digestive system] 08-26-2022 Episodic Other gastrointestinal disorders (20 sources) History of Crohns disease; Translations: [Personal history of other diseases of the digestive system] 12-14-2022 Episodic Other injuries and conditions due to external causes (5 sources) Closed injury of head; Translations: [Unspecified injury of head, initial encounter] 11-17-2023 Episodic Other lower respiratory disease (11 sources) Cough; Translations: [Cough] 11-03-2022 Episodic Other nervous system disorders (2 sources) Chronic pain syndrome; Translations: [Chronic pain syndrome] Onset: 8 Chronic Other nervous system disorders (4 sources) Disturbance of attention; Translations: [Attention and concentration deficit] Onset: 5 03-03-2025 Chronic Other nutritional; endocrine; and metabolic disorders (2 sources) Body mass index 40+ - severely obese; Translations: [Morbid (severe) obesity due to excess calories] Onset: 5 10-11-2015 Chronic Other nutritional; endocrine; and metabolic disorders (3 sources) Morbid obesity; Translations: [Morbid (severe) obesity due to excess calories] Onset: 5 Resolved: 7 10-22-2017 Chronic Other nutritional; endocrine; and metabolic disorders (3 sources) Hypomagnesemia; Translations: [Hypomagnesemia] Onset: 5 05-13-2025 Chronic Other nutritional; endocrine; and metabolic disorders (1 source) Hypomagnesemia; Translations: [Hypomagnesemia] Onset: Chronic Other nutritional; endocrine; and metabolic disorders (2 sources) Morbid (severe) obesity due to excess calories; Translations: [Morbid (severe) obesity due to excess calories (Multi)] Onset: 5 Chronic Other nutritional; endocrine; and metabolic disorders (2 sources) Body mass index (BMI) 50.0-59.9, adult; Translations: [Body mass index (BMI) 50.0-59.9, adult (Multi)] Onset: 5 Chronic Other nutritional; endocrine; and metabolic disorders (1 source) Weight increased; Translations: [Abnormal weight gain] 03-03-2025 Episodic Other nutritional; endocrine; and metabolic disorders (2 sources) Abnormal weight gain; Translations: [Abnormal weight gain] Onset: 5 Episodic Other screening for suspected conditions (not mental disorders or infectious disease) (4 sources) Encounter for other specified screening; Translations: [Encounter for screening for nuchal translucency] Onset: 8 [place]-; endo-; and myocarditis; cardiomyopathy (except that caused by tuberculosis or sexually transmitted disease) (11 sources) Pericardial effusion; Translations: [Pericardial effusion] 08-26-2022 Episodic Regional enteritis and ulcerative colitis (20 sources) Crohn's disease, unspecified, without complications; Translations: [Crohn's disease of small AND large intestines] Onset: 5 08-08-2015 Chronic Residual codes; unclassified (2 sources) Insomnia; Translations: [Other insomnia] Onset: 5 05-13-2025 Chronic Residual codes; unclassified (1 source) Other insomnia; Translations: [Other insomnia] Onset: 5 Chronic Residual codes; unclassified (1 source) Gestation period, 31 weeks; Translations: [31 weeks gestation of ] Onset: 5 02-04-2025 Episodic Residual codes; unclassified (1 source) Edema of lower extremity; Translations: [Localized edema] 03-03-2025 Episodic Residual codes; unclassified (3 sources) Bilateral lower limb edema; Translations: [Localized edema] Onset: 5 03-11-2025 Episodic Residual codes; unclassified (1 source) Family history of malignant neoplasm of breast; Translations: [Family history of malignant neoplasm of breast] Onset: 5 Episodic Residual codes; unclassified (1 source) 24 weeks gestation of ; Translations: [24 weeks gestation of ] Onset: 5 Episodic Residual codes; unclassified (2 sources) Personal history of other complications of , childbirth and the puerperium; Translations: [Personal history of other complications of , childbirth and the puerperium] Onset: 5 Episodic Residual codes; unclassified (2 sources) Localized edema; Translations: [Localized edema] Onset: 5 Episodic Residual codes; unclassified (2 sources) 24 weeks gestation of ; Translations: [24 weeks gestation of ] Onset: 8 Rheumatoid arthritis and related disease (4 sources) Rheumatoid arthritis; Translations: [Rheumatoid arthritis, unspecified] Onset: 5 08-08-2015 Chronic Screening and history of mental health and substance abuse codes (3 sources) H/O: depression; Translations: [Personal history of other complications of , childbirth and the puerperium] Onset: 7 Resolved: 7 10-22-2017 Episodic Spondylosis; intervertebral disc disorders; other back problems (3 sources) Low back pain; Translations: [Backache] Onset: 5 Resolved: 6 12-27-2015 Episodic Sprains and strains (5 sources) Strain of neck muscle; Translations: [Strain of muscle, fascia and tendon at neck level, initial encounter] 11-17-2023 Episodic Substance-related disorders (3 sources) Cannabis abuse; Translations: [Psychoactive substance abuse] Onset: 7 10-10-2017 Chronic Unclassified (2 sources) Unknown / UNK(Unknown) Onset: 7 Unclassified (2 sources) Spells; Translations: [Spells] Onset: 5 Resolved: 7 10-22-2017 Unclassified (1 source) Back Pain / 12() Onset: 8 Unclassified (1 source) Contraception / 60() Onset: 8 Unclassified (1 source) Non-stress Test / [id number]() Onset: 8 Unclassified (1 source) Chest pain, possible chemical exposure Onset: 3 Unclassified (2 sources) New Patient; Translations: [New Patient] Onset: 5 Unclassified (1 source) Patient encounter status 05-13-2025 Unclassified (2 sources) Nausea/Vomiting In ; Translations: [Nausea/Vomiting In ] Onset: 5 Urinary tract infections (8 sources) Acute pyelonephritis; Translations: [Urinary tract infectious disease] Onset: 5 Resolved: 7 09-08-2018 Episodic Viral infection (19 sources) Acute viral disease; Translations: [Viral infection, unspecified] 11-03-2022 Episodic Past or Other Problems Problem Classification Problem Date Documented Da te Episodic/Chronic Abdominal pain (20 sources) Unspecified abdominal pain; Translations: [Lower abdominal pain, unspecified] Onset: 5 Resolved: 6 10-26-2017 Episodic Administrative/social admission (4 sources) Malingerer [conscious simulation]; Translations: [Malingering] Onset: 6 Resolved: 7 10-22-2017 Episodic Allergic reactions (9 sources) Allergy status to other drugs, medicaments and biological substances status; Translations: [Allergy status to penicillin] Onset: 7 10-10-2017 Episodic Cardiac dysrhythmias (6 sources) Tachycardia; Translations: [Tachycardia] Onset: 5 Resolved: 7 08-09-2015 Episodic Crushing injury or internal injury (2 sources) Contusion of lung, unilateral, initial encounter; Translations: [Contusion of lung, unilateral, initial encounter] Onset: 2 Episodic Diseases of white blood cells (1 source) Leukocytosis; Translations: [Leukocytosis] Onset: 5 Resolved: 6 12-27-2015 Chronic Early or threatened labor (2 sources) False labor, unspecified; Translations: [Premature uterine contraction] Onset: 7 Resolved: 7 10-22-2017 Episodic Fever of unknown origin (1 source) Fever; Translations: [Fever] Onset: 5 Resolved: 6 12-27-2015 Episodic Fluid and electrolyte disorders (16 sources) Hypokalemia; Translations: [Hypokalemia] Onset: 8 Episodic Gastritis and duodenitis (3 sources) Bile-induced gastritis; Translations: [Other gastritis without bleeding] Onset: 7 10-26-2017 Episodic Headache; including migraine (16 sources) Headache; Translations: [Other specified related conditions, second trimester] Onset: 6 Resolved: 5 10-22-2017 Episodic Inflammatory diseases of female pelvic organs (3 sources) Vulvovaginitis; Translations: [Vulvovaginitis] Onset: 5 Resolved: 7 09-01-2015 Episodic Intracranial injury (1 source) Concussion without loss of consciousness, initial encounter; Translations: [Concussion without loss of consciousness, initial encounter] Onset: 4 Episodic Miscellaneous mental health disorders (2 sources) Undifferentiated somatoform disorder; 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] Onset: 5 Resolved: 7 12-27-2015 Chronic Miscellaneous mental health disorders (20 sources) Puerperal psychosis; 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] Onset: 8 Resolved: 5 01-01-2025 Episodic Nausea and vomiting (20 sources) Nausea and vomiting; Translations: [Nausea with vomiting, unspecified] Onset: 5 Resolved: 7 09-01-2015 Episodic Noninfectious gastroenteritis (1 source) Chronic diarrhea; Translations: [Chronic diarrhea] Onset: 7 06-26-2017 Episodic Other aftercare (2 sources) intermediate accountant (current) use of aspirin; Translations: [MCFP (current) use of aspirin] Onset: 7 Episodic Other circulatory disease (1 source) Hypotension, unspecified; Translations: [Hypotension, unspecified] Onset: 4 Episodic Other complications of ; puerperium affecting management of mother (1 source) Indication for care AND/OR intervention in labor AND/OR delivery; Translations: [Labor and delivery indication for care or intervention] Onset: 6 Resolved: 6 02-17-2016 Episodic Other complications of ; puerperium affecting management of mother (14 sources) Retained portions of placenta and membranes, without hemorrhage; Translations: [Retained portions of placenta or membranes, without hemorrhage, delivered, with mention of complication] Onset: 5 Resolved: 5 01-01-2025 Episodic Other complications of (2 sources) Anemia in mother complicating , childbirth AND/OR puerperium; Translations: [Anemia complicating , second trimester] Onset: 6 Resolved: 5 10-22-2017 Chronic Other complications of (1 source) Complication occurring during ; Translations: [History of cervical LEEP biopsy affecting care of mother, antepartum] Onset: 6 10-10-2017 Episodic Other complications of (5 sources) Supervision of with other poor reproductive or obstetric history, unspecified trimester; Translations: [History of pre-eclampsia] Onset: 6 Resolved: 7 10-22-2017 Episodic Other complications of (5 sources) High risk ; Translations: [Supervision of other high risk pregnancies, second trimester] Onset: 5 Resolved: 7 10-26-2017 Episodic Other complications of (2 sources) Vomiting of ; Translations: [Vomiting of , unspecified] Onset: 5 10-10-2017 Episodic Other complications of (2 sources) Hereditary disease in family possibly affecting fetus; Translations: [Maternal care for (suspected) hereditary disease in fetus, not applicable or unspecified] Onset: 7 Resolved: 7 10-22-2017 Episodic Other complications of (2 sources) Infections of bladder in , third trimester; Translations: [Acute cystitis in , antepartum] Onset: 7 Resolved: 5 10-22-2017 Episodic Other complications of (2 sources) Other specified related conditions, first trimester; Translations: [Other specified related conditions, first trimester] Onset: 7 Episodic Other complications of (1 source) History of loop electrosurgical excision procedure; Translations: [Maternal care for other abnormalities of cervix, unspecified trimester] Onset: 7 08-20-2022 Episodic Other complications of (14 sources) History of hemolysis-elevated liver enzymes-low platelet count syndrome; Translations: [Supervision of with other poor reproductive or obstetric history, unspecified trimester] Onset: 5 Resolved: 5 01-01-2025 Episodic Other complications of (13 sources) Previous operation to cervix affecting ; Translations: [Maternal care for other abnormalities of cervix, second trimester] Onset: 5 Resolved: 5 01-08-2025 Episodic Other complications of (4 sources) Supervision of elderly multigravida, unspecified trimester; Translations: [Supervision of elderly multigravida, unspecified trimester] Onset: 5 Episodic Other complications of (1 source) Vomiting of , unspecified; Translations: [Vomiting of , unspecified] Onset: 5 Episodic Other complications of (1 source) Supervision of other high risk pregnancies, second trimester; Translations: [Supervision of other high risk pregnancies, second trimester] Onset: 5 Episodic Other complications of (1 source) Injury, poisoning and certain other consequences of external causes complicating , second trimester; Translations: [Injury, poisoning and certain other consequences of external causes complicating , second trimester] Onset: 5 Episodic Other complications of (2 sources) Other mental disorders complicating , third trimester; Translations: [Other mental disorders complicating , third trimester] Onset: 5 Episodic Other complications of (2 sources) Other mental disorders complicating , second trimester; Translations: [Other mental disorders complicating , second trimester ([facility])] Onset: 5 Episodic Other complications of (2 sources) Other specified related conditions, third trimester; Translations: [Other specified related conditions, third trimester ([facility])] Onset: 5 Episodic Other complications of (2 sources) Other specified related conditions, second trimester; Translations: [Other specified related conditions, second trimester ([facility])] Onset: 5 Episodic Other complications of (2 sources) Maternal care for other abnormalities of cervix, second trimester; Translations: [Maternal care for other abnormalities of cervix, second trimester ([facility])] Onset: 5 Episodic Other complications of (2 sources) Other specified related conditions, unspecified trimester; Translations: [Other specified related conditions, unspecified trimester ([facility])] Onset: 5 Episodic Other connective tissue disease (1 source) H/O: rheumatoid arthritis; Translations: [History of rheumatoid arthritis] Onset: 5 02-25-2016 Episodic Other female genital disorders (1 source) History of recurrent miscarriage - not ; Translations: [History of recurrent miscarriages, not currently ] Onset: 5 02-25-2016 Episodic Other gastrointestinal disorders (1 source) Constipation; Translations: [Constipation] Onset: 5 Resolved: 6 12-27-2015 Episodic Other gastrointestinal disorders (2 sources) Diarrhea, unspecified; Translations: [Diarrhea, unspecified] Onset: 9 Episodic Other injuries and conditions due to external causes (1 source) Other specified injuries of thorax, initial encounter; Translations: [Other specified injuries of thorax, initial encounter] Onset: 4 Episodic Other injuries and conditions due to external causes (1 source) Unspecified injury of abdomen, initial encounter; Translations: [Unspecified injury of abdomen, initial encounter] Onset: 4 Episodic Other lower respiratory disease (1 source) Hypoxia; Translations: [Hypoxia] Onset: 5 Resolved: 6 12-27-2015 Episodic Other lower respiratory disease (1 source) Dyspnea; Translations: [SOB (shortness of breath)] Onset: 5 Resolved: 6 12-27-2015 Episodic Other screening for suspected conditions (not mental disorders or infectious disease) (12 sources) Electrocardiogram abnormal; Translations: [Patient encounter status] Onset: 6 Resolved: 7 10-22-2017 Episodic Polyhydramnios and other problems of amniotic cavity (14 sources) Polyhydramnios; Translations: [Polyhydramnios, unspecified trimester, not applicable or unspecified] Onset: 8 Resolved: 5 02-12-2018 Episodic Residual codes; unclassified (1 source) History of cholecystectomy; Translations: [History of cholecystectomy] Onset: 5 Resolved: 7 10-22-2017 Episodic Residual codes; unclassified (1 source) Altered behavior; Translations: [Cognitive and behavioral changes] Onset: 5 Resolved: 7 10-22-2017 Episodic Residual codes; unclassified (2 sources) Personal history of other specified conditions; Translations: [History of syncope] Onset: 7 10-10-2017 Episodic Residual codes; unclassified (1 source) Gestation period, 35 weeks; Translations: [35 weeks gestation of ] Onset: 7 Resolved: 5 11-25-2024 Episodic Residual codes; unclassified (2 sources) Gestation period, 26 weeks; Translations: [26 weeks gestation of ] Onset: 5 01-01-2025 Episodic Residual codes; unclassified (15 sources) History of pre-eclampsia; Translations: [Personal history of other complications of , childbirth and the puerperium] Onset: 5 01-01-2025 Episodic Residual codes; unclassified (3 sources) Gestation period, 27 weeks; Translations: [27 weeks gestation of ] Onset: 5 01-08-2025 Episodic Residual codes; unclassified (3 sources) Gestation period, 28 weeks; Translations: [28 weeks gestation of ] Onset: 5 01-13-2025 Episodic Residual codes; unclassified (3 sources) Gestation period, 29 weeks; Translations: [29 weeks gestation of ] Onset: 5 01-22-2025 Episodic Residual codes; unclassified (2 sources) Gestation period, 30 weeks; Translations: [30 weeks gestation of ] Onset: 5 01-29-2025 Episodic Residual codes; unclassified (7 sources) Gestation period, 32 weeks; Translations: [32 weeks gestation of ] Onset: 5 Resolved: 5 02-11-2025 Episodic Residual codes; unclassified (3 sources) Other specified postprocedural states; Translations: [Other specified postprocedural states] Onset: 5 Episodic Residual codes; unclassified (1 source) 20 weeks gestation of ; Translations: [20 weeks gestation of ] Onset: 5 Episodic Residual codes; unclassified (1 source) 12 weeks gestation of ; Translations: [12 weeks gestation of ] Onset: 4 Episodic Residual codes; unclassified (2 sources) 29 weeks gestation of ; Translations: [29 weeks gestation of ([facility])] Onset: 5 Episodic Residual codes; unclassified (1 source) 32 weeks gestation of ; Translations: [32 weeks gestation of ([facility])] Onset: 5 Episodic Residual codes; unclassified (1 source) 30 weeks gestation of ; Translations: [30 weeks gestation of ([facility])] Onset: 5 Episodic Residual codes; unclassified (1 source) 28 weeks gestation of ; Translations: [28 weeks gestation of ([facility])] Onset: 5 Episodic Residual codes; unclassified (1 source) 27 weeks gestation of ; Translations: [27 weeks gestation of ([facility])] Onset: 5 Episodic Residual codes; unclassified (1 source) 26 weeks gestation of ; Translations: [26 weeks gestation of ([facility])] Onset: 5 Episodic Respiratory failure; insufficiency; arrest (adult) (1 source) Acute respiratory failure; Translations: [Acute respiratory failure with hypoxia] Onset: 5 Resolved: 6 11-28-2015 Episodic Spontaneous (2 sources) Miscarriage; Translations: [Complete or unspecified spontaneous without complication] Onset: 5 Resolved: 7 10-22-2017 Episodic Superficial injury; contusion (15 sources) Contusion of lower limb; Translations: [Contusion of left lower leg, initial encounter] Onset: 4 11-17-2023 Episodic Syncope (3 sources) Vasovagal syncope; Translations: [Syncope and collapse] Onset: 7 10-10-2017 Episodic Unclassified (2 sources) Acquired absence of other specified parts of digestive tract; Translations: [Acquired absence of other specified parts of digestive tract] Onset: 7 Episodic Unclassified (1 source) F41.9^Anxi Onset: 7 Unclassified (1 source) Crohn's flare up Onset: 8 Unclassified (1 source) Non-stress Test; Translations: [Non-stress Test] Onset: 8 Unclassified (14 sources) Onset: 5 Resolved: 5 01-01-2025 Results Test Name Value Interpretation Reference Range Facility MR/BMS.BPon 04-30-2025 MR/BMS.BP Normal [facility] MR/BMS.BPon 04-24-2025 MR/BMS.BP Normal [facility] MR/BMS.BPon 04-14-2025 MR/BMS.BP Normal [facility] MR/BMS.BPon 04-07-2025 MR/BMS.BP Normal [facility] MR/BMS.BPon 04-02-2025 MR/BMS.BP Normal [facility] MR/BMS.BPon 03-24-2025 MR/BMS.BP Normal [facility] MR/BMS.BPon 03-18-2025 MR/BMS.BP Normal [facility] BASIC METABOLIC PANEL WITH A NION GAPon 03-11-2025 BUN/CREATININE RATIO SEE NOTE: Normal 6-22 [facility] Comment on above: Order Comment: FASTI NG:NO FASTING: NO Result Comment: Not Reported: BUN and Creatinine are within reference range. Performed By: #### 9 4588 #### [facility] [place] [address] Safety Tech: Salvador Swanson MD Calcium [Mass/Vol] 8.9 mg/dL Normal 8.6-10.2 [facility] Comment on above: Order Comment: FASTI NG:NO FASTING: NO Performed By: #### 9 2168 #### [facility] [place] [address] Safety Tech: Salvador Swanson MD Chloride [Moles/Vol] 107 mmol/L Normal 98-110 [facility] Comment on above: Order Comment: FASTI NG:NO FASTING: NO Performed By: #### 9 2708 #### [facility] [place] [address] Safety Tech: Salvador Swanson MD CO2 [Moles/Vol] 22 mmol/L Normal 20-32 [facility] Comment on above: Order Comment: FASTI NG:NO FASTING: NO Performed By: #### 9 4768 #### [facility] [place] [address] Safety Tech: Salvador Swanson MD Creatinine [Mass/Vol] 0.71 mg/dL Normal 0.50-0.[address] [facility] [address] [facility] Comment on above: Order Comment: FASTI NG:NO FASTING: NO Performed By: #### 9 7788 #### [facility] [place] [address] Safety Tech: Salvador Swanson MD ELECTROLYTE BALANCE 13 mmol/L (calc) Normal 7-17 [facility] Comment on above: Order Comment: FASTI NG:NO FASTING: NO Performed By: #### 9 6710 #### [facility] [place] [address] Safety Tech: Salvador Swanson MD GFR/1.73 sq M.predicted among non-blacks MDRD (S/P/Bld) [Vol rate/Area] 113 mL/min/{1.73_m2} Normal > OR = 60 [facility] Comment on above: Order Comment: FASTI NG:NO FASTING: NO Performed By: #### 9 2498 #### [facility] [place] [address] Safety Tech: Salvador Swanson MD Glucose [Mass/Vol] 77 mg/dL Normal 65-139 [facility] Comment on above: Order Comment: FASTI NG:NO FASTING: NO Result Comment: Non-fasting reference interval Performed By: #### 9 2498 #### [facility] [address], [address] [place] [address] Safety Tech: Salvador Swanson MD Potassium [Moles/Vol] 3.9 mmol/L Normal 3.5-5.[address] [facility] [address] [facility] Comment on above: Order Comment: FASTI NG:NO FASTING: NO Performed By: #### 9 2498 #### [facility] [place] [address] Safety Tech: Salvador Swanson MD Sodium [Moles/Vol] 142 mmol/L Normal 135-146 [facility] Comment on above: Order Comment: FASTI NG:NO FASTING: NO Performed By: #### 9 1268 #### [facility] [place] [address] Safety Tech: Salvador Swanson MD Urea nitrogen [Mass/Vol] 8 mg/dL Normal 7-25 [facility] Comment on above: Order Comment: FASTI NG:NO FASTING: NO Performed By: #### 9 2498 #### [facility] [address], [address] [place] [address] Safety Tech: Salvador Swanson MD Basic metabolic 2000 panelon 03-11-2025 Anion gap [Moles/Vol] 13 mmol/L [facility] Calcium [Mass/Vol] 8.9 mg/dL 8.6 - 10. 2 mg/dL [facility] Chloride [Moles/Vol] 107 mmol/L 98 - 11 0 mmol/L [facility] CO2 [Moles/Vol] 22 mmol/L 20 - 32 mmol/L [facility] Creatinine [Mass/Vol] 0.71 mg/dL 0.50 - 0.97 mg/dL [facility] GFR/1.73 sq M.predicted among non-blacks MDRD (S/P/Bld) [Vol rate/Area] 113 mL/min/{1.73_m2} > OR = 60 mL/min/1.73m 2 [facility] Glucose [Mass/Vol] 77 mg/dL 65 - 139 mg/dL [facility] Comment on above: Non-fasting reference interval Potassium [Moles/Vol] 3.9 mmol/L 3.5 - 5.3 mmol/L [facility] Sodium [Moles/Vol] 142 mmol/L 135 - 146 mmol/L [facility] Urea nitrogen [Mass/Vol] 8 mg/dL 7 - 25 mg/dL [facility] Urea nitrogen/Creatinine [Mass ratio] SEE NOTE: [facility] Comment on above: Not Reported: BUN an d Creatinine are within reference range. FASTING:NO FASTING: NO [facility] Gl[facility] Test strip manual (B ld) [Mass/Vol]on 03-10-2025 Glucose [Mass/Vol] 123 mg/dL High 74 - 99 mg/dL [facility] Interpretation and review of laboratory results Abnormal [facility] Glucose [Mass/Vol] 123 mg/dL High 74-99 [facility] Comment on above: Performed By: #### 2 7298-9 #### QUIN Simon ([id number]) [facility] ([facility]) [id number] [place] [address] CBC (INCLUDES DIFF/PLT)on Basophils (Bld) [#/Vol] 0.053 10*3/uL Normal 0-200 [facility] Comment on above: Performed By: #### 7 367, 602, 8230, 45825, 79681 #### [facility] [address] [place] [address], [address] [place] [address] Safety Tech: Salvador Swanson MD #### 945 #### [facility]/[address] [place], [place] Safety Tech: Yaya Alvarez M.D.,PhD Basophils/100 WBC (Bld) 0.6 % Normal [facility] Comment on above: Performed By: #### 7 600, 622, 6399, 41485, 12385 #### [facility] of [address], [address] [place], [place] [id number] Safety Tech: Salvador Swanson MD #### 945 #### [facility] [place], [place] Safety Tech: Yaya Alvarez M.D.,PhD Eosinophils (Bld) [#/Vol] 0.365 10*3/uL Normal 15-500 [facility] Comment on above: Performed By: #### 7 600, 622, 6399, 13437, 47667 #### [facility] [place] [address] Safety Tech: Salvador Swanson MD #### 945 #### [facility] [place], [place] Safety Tech: Yaya Alvarez M.D.,PhD Eosinophils/100 WBC (Bld) 4.1 % Normal [facility] Comment on above: Performed By: #### 7 600, 622, 6399, 81936, 04472 #### [facility] of [address], [address] [place], [place] [id number] Safety Tech: Salvador Swanson MD #### 945 #### [facility] [place] Safety Tech: Yaya Alvarez M.D.,PhD Erythrocyte distribution width (RBC) [Ratio] 13.0 % Normal 11.0-15.0 [facility] Comment on above: Performed By: #### 7 600, 622, 6399, 82918, 65892 #### [facility] of [address], [address] [place], [place] [id number] Safety Tech: Salvador Swanson MD #### 945 #### [facility] [place] Safety Tech: Yaya Alvarez M.D.,PhD Hematocrit (Bld) [Volume fraction] 37.1 % Normal 35.0-45.0 [facility] Comment on above: Performed By: #### 7 600, 622, 6399, 30954, 31574 #### [facility] of [place] [address], [address] [place], [place] [id number] Safety Tech: Salvador Swanson MD #### 945 #### [facility] [place] Safety Tech: Yaya Alvarez M.D.,PhD Hemoglobin (Bld) [Mass/Vol] 11.8 g/dL Normal 11.7-15.5 [facility] Comment on above: Performed By: #### 7 600, 622, 6399, 58073, 29545 #### [facility] of [place] [address] [address] , [address] [place], [place] [id number] Safety Tech: Salvador Swanson MD #### 945 #### [facility] [address] [facility] [place], [place] Safety Tech: Yaya Alvarez M.D.,PhD Lymphocytes (Bld) [#/Vol] 2.243 10*3/uL Normal 850-3900 [facility] Comment on above: Performed By: #### 7 600, 622, 6399, 20730, 65793 #### [facility] of [place] [address], [address] [place], [place] [id number] Safety Tech: Salvador Swanson MD #### 945 #### [facility] [address] [facility] [address] [place] Safety Tech: Yaya Alvarez M.D.,PhD Lymphocytes/100 WBC (Bld) 25.2 % Normal [facility] Comment on above: Performed By: #### 7 600, 622, 6399, 56235, 94238 #### [facility] [address], [address] [place], [place] [id number] Safety Tech: Salvador Swanson MD #### 945 #### [facility]/[place] [address] [facility] [place], [place] Safety Tech: Yaya Alvarez M.D.,PhD MCH (RBC) [Entitic mass] 26.9 pg Low 27.0-33.0 [facility] Comment on above: Performed By: #### 7 600, 622, 6399, 75357, 86592 #### [facility] [place] [id number] Safety Tech: Salvador Swanson MD #### 945 #### [facility]/[place] [address] [facility] [place], [place] Safety Tech: Yaya Alvarez M.D.,PhD MCHC (RBC) [Mass/Vol] 31.8 g/dL Low 32.0-36.[address] [facility] Comment on above: Result Comment: For adults, a slight decrease in the calculated MCHC value (in the range of 30 to 32 g/dL) is most likely not clinically significant; however, it should be interpreted with caution in correlation with other red cell parameters and the patient's clinical condition. Performed By: #### 7 600, 622, 6399, 90551, 79494 #### [facility] [address], [address] [place], [place] [id number] Safety Tech: Salvador Swanson MD #### 945 #### [facility] [place], [place] Safety Tech: Yaya Alvarez M.D.,PhD MCV (RBC) [Entitic vol] 84.7 fL Normal 80.0-100.0 [facility] Comment on above: Performed By: #### 7 600, 622, 6399, 26913, 53429 #### [facility] of [address], [address] [place] [address] Safety Tech: Salvador Swanson MD #### 945 #### [facility]/[address] [place], [place] Safety Tech: Yaya Alvarez M.D.,PhD Monocytes (Bld) [#/Vol] 0.481 10*3/uL Normal 200-950 [facility] Comment on above: Performed By: #### 7 600, 622, 6399, 83670, 74819 #### [facility] of [place] [address] Safety Tech: Salvador Swanson MD #### 945 #### [facility]/[address] [place], [place] Safety Tech: Yaya Alvarez M.D.,PhD Monocytes/100 WBC (Bld) 5.4 % Normal [facility] Comment on above: Performed By: #### 7 600, 622, 6399, 50197, 27221 #### [facility] of [place] [address] Safety Tech: Salvador Swanson MD #### 945 #### [facility]/[address] [place], [place] Safety Tech: Yaya Alvarez M.D.,PhD Neutrophils (Bld) [#/Vol] 5.758 10*3/uL Normal 5130-4151 [facility] Comment on above: Performed By: #### 7 600, 622, 6399, 20722, 96192 #### [facility] of [place] [address] Safety Tech: Salvador Swanson MD #### 945 #### [facility]/[address] [place], [place] Safety Tech: Yaya Alvarez M.D.,PhD Neutrophils/100 WBC (Bld) 64.7 % Normal [facility] Comment on above: Performed By: #### 7 600, 622, 6399, 37758, 25330 #### [facility] of [address], [address] [place] [address] Safety Tech: Salvador Swanson MD #### 945 #### [facility]/[place] [address] [facility] [place], [place] Safety Tech: Yaya Alvarez M.D.,PhD Platelet mean volume (Bld) [Entitic vol] 10.2 fL Normal 7.5-12.5 [facility] Comment on above: Performed By: #### 7 600, 622, 6399, 89270, 21091 #### [facility] of [place] [address] Safety Tech: Salvador Swanson MD #### 945 #### [facility]/[address] [place], [place] Safety Tech: Yaya Alvarez M.D.,PhD Platelets (Bld) [#/Vol] 392 10*3/uL Normal 140-400 [facility] Comment on above: Performed By: #### 7 600, 622, 6399, 11307, 21664 #### [facility] of [address], [address] [place] [address] Safety Tech: Salvador Swanson MD #### 945 #### [facility]/[place] [id number] [facility] [place] Safety Tech: Yaya Alvarez M.D.,PhD RBC (Bld) [#/Vol] 4.38 10*6/uL Normal 3.80-5.10 [facility] Comment on above: Performed By: #### 7 600, 622, 6399, 02225, 75013 #### [facility] of [place] [address], [address] [place], [place] [id number] Safety Tech: Salvador Swanson MD #### 945 #### [facility]/[place] [address] [facility] [place] Safety Tech: Yaya Alvarez M.D.,PhD WBC (Bld) [#/Vol] 8.9 10*3/uL Normal 3.8-10.8 [facility] Comment on above: Performed By: #### 7 600, 622, 6399, 48258, 76407 #### [facility] of [place] [address] [address] , [address] [place] [address] Safety Tech: Salvador Swanson MD #### 945 #### [facility]/[place] [address] [facility] [place] Safety Tech: Yaya Alvarez M.D.,PhD COMPREHENSIVE METABOLIC PANE L W/ANION GAPon 03-09-2025 Albumin [Mass/Vol] 4.0 g/dL Normal 3.6-5.1 [facility] Comment on above: Performed By: #### 7 600, 622, 6399, 41764, 49325 #### [facility] of [place] [address] [address] , [address] [place], [place] [id number] Safety Tech: Salvador Swanson MD #### 945 #### [facility]/[place] [address] [facility] [place] Safety Tech: Yaya Alvarez M.D.,PhD ALP [Catalytic activity/Vol] 98 U/L Normal 31-125 [facility] Comment on above: Performed By: #### 7 600, 622, 6399, 83323, 30400 #### [facility] of [place] [address], [address] [place], [place] [id number] Safety Tech: Salvador Swanson MD #### 945 #### [facility] [address] [facility] [place] Safety Tech: Yaya Alvarez M.D.,PhD ALT [Catalytic activity/Vol] 16 U/L Normal 6-29 [facility] Comment on above: Performed By: #### 7 600, 622, 6399, 30277, 58995 #### [facility] of [address], [address] [place], [place] [id number] Safety Tech: Salvador Swanson MD #### 945 #### [facility]/[place] [address] [facility] [place] Safety Tech: Yaya Alvarez M.D.,PhD AST [Catalytic activity/Vol] 13 U/L Normal 10-30 [facility] Comment on above: Performed By: #### 7 600, 622, 6399, 79004, 76599 #### [facility] of [address], [address] [place], [place] [id number] Safety Tech: Salvador Swanson MD #### 945 #### [facility]/[address] [place], [place] Safety Tech: Yaya Alvarez M.D.,PhD Bilirubin [Mass/Vol] 0.8 mg/dL Normal 0.2-1.2 [facility] Comment on above: Performed By: #### 7 600, 622, 6399, 43184, 50348 #### [facility] of [address], [address] [place], [place] [id number] Safety Tech: Salvador Swanson MD #### 945 #### [facility] [address] [place] Safety Tech: Yaya Alvarez M.D.,PhD Calcium [Mass/Vol] 9.1 mg/dL Normal 8.6-10.2 [facility] Comment on above: Performed By: #### 7 600, 622, 6399, 94249, 28055 #### [facility] of [address], [address] [place], [place] [id number] Safety Tech: Salvador Swanson MD #### 945 #### [facility] [address] [facility] [place] Safety Tech: Yaya Alvarez M.D.,PhD Chloride [Moles/Vol] 103 mmol/L Normal 98-110 [facility] Comment on above: Performed By: #### 7 600, 622, 6399, 85880, 98228 #### [facility] of [place] [address], [address] [place], [place] [id number] Safety Tech: Salvador Swanson MD #### 945 #### [facility]/[place] [address] [facility] [place] Safety Tech: Yaya Alvarez M.D.,PhD CO2 [Moles/Vol] 24 mmol/L Normal 20-32 [facility] Comment on above: Performed By: #### 7 600, 622, 6399, 98215, 76994 #### [facility] of [place] [address] [address] , [address] [place], [place] [id number] Safety Tech: Salvador Swanson MD #### 945 #### [facility]/[place] [address] [facility] [place] Safety Tech: Yaya Alvarez M.D.,PhD Creatinine [Mass/Vol] 0.68 mg/dL Normal 0.50-0.[address] [facility] [address] [facility] Comment on above: Performed By: #### 7 600, 622, 6399, 70369, 71647 #### [facility] of [place] [address] [address] , [address] [place], [place] [id number] Safety Tech: Salvador Swanson MD #### 945 #### [facility] [place] Safety Tech: Yaya Alvarez M.D.,PhD ELECTROLYTE BALANCE 11 mmol/L (calc) Normal 7-17 [facility] Comment on above: Performed By: #### 7 600, 622, 6399, 22104, 24957 #### [facility] [address] Safety Tech: Salvador Swanson MD #### 945 #### [facility] [address] [facility] [address] [place] Safety Tech: Yaya Alvarez M.D.,PhD GFR/1.73 sq M.predicted among non-blacks MDRD (S/P/Bld) [Vol rate/Area] 116 mL/min/{1.73_m2} Normal > OR = 60 [facility] Comment on above: Performed By: #### 7 600, 622, 6399, 04584, 26643 #### [facility] [address], [address] [place], [place] [id number] Safety Tech: Salvador Swanson MD #### 945 #### [facility] [address] [place] Safety Tech: Yaya Alvarez M.D.,PhD Glucose [Mass/Vol] 112 mg/dL High 65-99 [facility] Comment on above: Result Comment: Fasting reference interval For someone without known diabetes, a glucose value between 100 and 125 mg/dL is consistent with prediabetes and should be confirmed with a follow-up test. Performed By: #### 7 600, 622, 6399, 16297, 80186 #### [facility] [address], [address] [place], [place] [id number] Safety Tech: Salvador Swanson MD #### 945 #### [facility] [address] [facility] [address] [place] Safety Tech: Yaya Alvarez M.D.,PhD Potassium [Moles/Vol] 4.0 mmol/L Normal 3.5-5.[address] [facility] [address] [facility] Comment on above: Performed By: #### 7 600, 622, 6399, 13425, 90417 #### [facility] of [place] [address] [address] , [address] [place], [place] [id number] Safety Tech: Salvador Swanson MD #### 945 #### [facility] [address] [place] Safety Tech: Yaya Alvarez M.D.,PhD Protein [Mass/Vol] 7.4 g/dL Normal 6.1-8.1 [facility] Comment on above: Performed By: #### 7 600, 622, 6399, 33095, 63895 #### [facility] of [address], [address] [place], [place] [id number] Safety Tech: Salvador Swanson MD #### 945 #### [facility] [address] [place] Safety Tech: Yaya Alvarez M.D.,PhD Sodium [Moles/Vol] 138 mmol/L Normal 135-146 [facility] Comment on above: Performed By: #### 7 600, 622, 6399, 77828, 48886 #### [facility] of [place] [address], [address] [place], [place] [id number] Safety Tech: Salvador Swanson MD #### 945 #### [facility] [address] [place] Safety Tech: Yaya Alvarez M.D.,PhD Urea nitrogen [Mass/Vol] 10 mg/dL Normal 7-25 [facility] Comment on above: Performed By: #### 7 600, 622, 6399, 99271, 37784 #### [facility] of [place] [address], [address] [place], [place] [id number] Safety Tech: Salvador Swanson MD #### 945 #### [facility] [address] [place] Safety Tech: Yaya Alvarez M.D.,PhD HEMOGLOBIN [facility] (mmol/L) 7.7 mmol/L Normal [facility] Comment on above: Performed By: #### 1 759, 50750 #### [facility] [address], [address] [place] [address] Safety Tech: Salvador Swanson MD HbA1c (Bld) [Mass fraction] 6.5 % High <5.7 [facility] Comment on above: Result Comment: For someone without known diabetes, a hemoglobin A1c value of 6.5% or greater indicates that they may have diabetes and this should be confirmed with a follow-up test. For someone with known diabetes, a value <7% indicates that their diabetes is well controlled and a value greater than or equal to 7% indicates suboptimal control. A1c targets should be individualized based on duration of diabetes, age, comorbid conditions, and other considerations. Currently, no consensus exists regarding use of hemoglobin A1c for diagnosis of diabetes for children. Performed By: #### 1 759, 69976 #### [facility] [address], [address] [place] [address] Safety Tech: Salvador Swanson MD Magnesium [Mass/Vol] 140 mg/dL Normal [facility] Comment on above: Performed By: #### 1 759, 60505 #### [facility] [place] [address] Safety Tech: Salvador Swanson MD LIPID PANEL, [facility] Cholesterol [Mass/Vol] 218 mg/dL High <200 [facility] Comment on above: Order Comment: FASTI NG:YES FASTING: YES Performed By: #### 7 600, 622, 6399, 97582, 40900 #### [facility] [address], [address] [place] [address] Safety Tech: Salvador Swanson MD #### 945 #### [facility] [address] [facility] [place], [place] Safety Tech: Yaya Alvarez M.D.,PhD Cholesterol in HDL [Mass/Vol] 58 mg/dL Normal > OR = 50 [facility] Comment on above: Order Comment: FASTI NG:YES FASTING: YES Performed By: #### 7 600, 622, 6399, 54275, 99714 #### [facility] [address], [address] [place], [place] [id number] Safety Tech: Salvador Swanson MD #### 945 #### [facility]/[place] [address] [facility] [place], [place] Safety Tech: Yaya Alvarez M.D.,PhD Cholesterol in LDL [Mass/Vol] 139 mg/dL High [facility] Comment on above: Order Comment: FASTI NG:YES FASTING: YES Result Comment: Refe rence range: <100 Desirable range <100 mg/dL for primary prevention; <70 mg/dL for patients with CHD or diabetic patients with > or = 2 CHD risk factors. LDL-C is now calculated using the Darren-Brent calculation, which is a validated novel method providing better accuracy than the Friedewald equation in the estimation of LDL-C. Darren SULLIVAN et al. ILIANA. 2013;310(19): 4991-5132 (http://education.ChoiceMap.Cloudnexa/faq/ZYX110) Performed By: #### 7 600, 622, 6399, 90365, 10836 #### [facility] [address], [address] [place], [place] [id number] Safety Tech: Salvador Swanson MD #### 945 #### [facility] [address] [facility] [place], [place] Safety Tech: Yaya Alvarez M.D.,PhD Cholesterol.total/Cho lesterol in HDL [Mass ratio] 3.8 {ratio} Normal <5.0 [facility] Comment on above: Order Comment: FASTI NG:YES FASTING: YES Performed By: #### 7 600, 622, 6399, 20986, 55488 #### [facility] [address], [address] [place], [place] [id number] Safety Tech: Salvador Swanson MD #### 945 #### [facility] [place], [place] Safety Tech: Yaya Alvarez M.D.,PhD NON HDL CHOLESTEROL 160 mg/dL (calc) High <130 [facility] Comment on above: Order Comment: FASTI NG:YES FASTING: YES Result Comment: For patients with diabetes plus 1 major ASCVD risk factor, treating to a non-HDL-C goal of <100 mg/dL (LDL-C of <70 mg/dL) is considered a therapeutic option. Performed By: #### 7 600, 622, 6399, 64206, 97377 #### [facility] [address], [address] [place] [address] Safety Tech: Salvador Swanson MD #### 945 #### [facility] [place], [place] Safety Tech: Yaya Alvarez M.D.,PhD Triglyceride [Mass/Vol] 99 mg/dL Normal <150 [facility] Comment on above: Order Comment: FASTI NG:YES FASTING: YES Performed By: #### 7 600, 622, 6399, 56754, 84349 #### [facility] [address], [address] [place] [address] Safety Tech: Salvador Swanson MD #### 945 #### [facility]/[place] [id number] [facility] [place], [place] Safety Tech: Yaya Alvarez M.D.,PhD MAGNESIUMon 03-09-2025 Magnesium [Mass/Vol] 2.1 mg/dL Normal 1.5-2.5 [facility] Comment on above: Performed By: #### 7 600, 622, 6399, 31355, 87075 #### [facility] [address], [address] [place] [address] Safety Tech: Salvador Swanson MD #### 945 #### [facility] [address] [facility] [place], [place] Safety Tech: Yaya Alvarez M.D.,PhD TSH W/REFLEX TO FT4on 2024 TSH W/REFLEX TO FT4 1.47 mIU/L Normal [facility] Comment on above: Result Comment: Refe rence Range > or = 20 Years 0.40-4.50 Ranges First trimester 0.26-2.66 Second trimester 0.55-2.73 Third trimester 0.43-2.91 Performed By: #### 7 600, 622, 6399, 14321, 11156 #### [facility] [address], [address] [place] [address] Safety Tech: Salvador Swanson MD #### 945 #### [facility] [address] [facility] [address] [place] Safety Tech: Yaya Alvarez M.D.,PhD ZINCon 03-09-2025 ZINC 58 mcg/dL Low 60-130 [facility] Comment on above: Result Comment: This test was developed and its analytical performance characteristics have been determined by [place], [place]. It has not been cleared or approved by the U.S. Food and Drug Administration. This assay has been validated pursuant to the CLIA regulations and is used for clinical purposes. Performed By: #### 7 600, 622, 6399, 64723, 92034 #### [facility] [address], [address] [place] [address] Safety Tech: Salvador Swanson MD #### 945 #### [facility] [address] [facility] [place], [place] Safety Tech: Yaya Alvarez M.D.,PhD MR/JENNIFER.BPon 03-05-2025 MR/JENNIFER.BP Normal [facility] Glucose Test strip manual (B ld) [Mass/Vol]on 03-01-2025 Glucose [Mass/Vol] 105 mg/dL High 74 - 99 mg/dL [facility] Interpretation and review of laboratory results Abnormal [facility] Glucose [Mass/Vol] 105 mg/dL High 74-99 [facility] Comment on above: Performed By: #### 3 5255-9 #### QUIN Simon ([id number]) [facility] ([facility]) [address] [place] [address] MR/BMS.BPon 02-24-2025 MR/BMS.BP Normal [facility] MR/BMS.BPon 02-19-2025 MR/BMS.BP Normal [facility] CBC W Auto Differential pane l (Bld)on 02-16-2025 Basophils (Bld) [#/Vol] 0.08 10*3/uL [facility] Basophils/100 WBC (Bld) 0.7 % 0.0 - 2.0 % [facility] Eosinophils (Bld) [#/Vol] 0.01 10*3/uL [facility] Eosinophils/100 WBC (Bld) 0.1 % 0.0 - 6.0 % [facility] Erythrocyte distribution width (RBC) [Ratio] 13.4 % 11.5 - 14.5 % [facility] Hematocrit (Bld) [Volume fraction] 35.2 % Low 36.0 - 46.0 % [facility] Hemoglobin (Bld) [Mass/Vol] 11 g/dL Low 12.0 - 16.0 g/dL [facility] Immature granulocytes (Bld) [#/Vol] 0.3 10*3/uL [facility] Immature granulocytes/100 WBC (Bld) 2.8 % High 0.0 - 0.9 % [facility] Comment on above: Immature Granulocyte Count (IG) includes promyelocytes, myelocytes and metamyelocytes but does not include bands. Percent differential counts (%) should be interpreted in the context of the absolute cell counts (cells/UL). Interpretation and review of laboratory results Abnormal [facility] Lymphocytes (Bld) [#/Vol] 2.35 10*3/uL [facility] Lymphocytes/100 WBC (Bld) 22 % 13.0 - 44.0 % [facility] MCH (RBC) [Entitic mass] 27.2 pg 26.0 - 34.0 pg [facility] MCHC (RBC) [Mass/Vol] 31.3 g/dL Low 32.0 - 36.0 g/dL [facility] MCV (RBC) [Entitic vol] 87 fL 80 - 100 fL [facility] Monocytes (Bld) [#/Vol] 0.59 10*3/uL [facility] Monocytes/100 WBC (Bld) 5.5 % 2.0 - 10.0 % [facility] Neutrophils (Bld) [#/Vol] 7.34 10*3/uL [facility] Comment on above: Percent differential counts (%) should be interpreted in the context of the absolute cell counts (cells/uL). Neutrophils/100 WBC (Bld) 68.9 % 40.0 - 80.0 % [facility] Nucleated RBC/100 WBC (Bld) [Ratio] 0 % [facility] Platelets (Bld) [#/Vol] 314 10*3/uL [facility] RBC (Bld) [#/Vol] 4.05 10*6/uL [facility] WBC (Bld) [#/Vol] 10.7 10*3/uL [facility] Basophils (Bld) [#/Vol] 0.08 x10*3/uL Normal 0.00-0.10 [facility] Comment on above: Performed By: #### 3 5255-9 #### QUIN Simon ([id number]) [facility] ([facility]) [address] [place] [address] 29318 Basophils/100 WBC (Bld) 0.7 % Normal 0.0-2.0 [facility] Comment on above: Performed By: #### 3 5255-9 ###Daria Simon ([id number]) [facility] ([facility]) [address] [place] [address] 18648 Eosinophils (Bld) [#/Vol] 0.01 x10*3/uL Normal 0.00-0.70 [facility] Comment on above: Performed By: #### 3 5255-9 #### QUIN Simon ([id number]) [facility] ([facility]) [address] [place] [address] 02622 Eosinophils/100 WBC (Bld) 0.1 % Normal 0.0-6.0 [facility] Comment on above: Performed By: #### 3 5255-9 #### QUIN Simon ([id number]) [facility] ([facility]) [address] [place] [address] 02543 Erythrocyte distribution width (RBC) [Ratio] 13.4 % Normal 11.5-14.5 [facility] Comment on above: Performed By: #### 3 5255-9 #### QUIN Simon ([id number]) [facility] ([facility]) [address] [place] [address] 80350 Hematocrit (Bld) [Volume fraction] 35.2 % Low 36.0-46.0 [facility] Comment on above: Performed By: #### 3 5255-9 #### QUIN Simon ([id number]) [facility] ([facility]) [address] [place] [address] 69465 Hemoglobin (Bld) [Mass/Vol] 11.0 g/dL Low 12.0-16.0 [facility] Comment on above: Performed By: #### 3 5255-9 #### QUIN Simon ([id number]) [facility] ([facility]) [address] [place] [address] 43599 Immature granulocytes (Bld) [#/Vol] 0.30 x10*3/uL Normal 0.00-0.70 [facility] Comment on above: Performed By: #### 3 5255-9 #### QUIN Simon ([id number]) [facility] ([facility]) [address] [place] [address] 56109 Immature granulocytes/100 WBC (Bld) 2.8 % High 0.0-0.9 [facility] Comment on above: Result Comment: Gayla ture Granulocyte Count (IG) includes promyelocytes, myelocytes and metamyelocytes but does not include bands. Percent differential counts (%) should be interpreted in the context of the absolute cell counts (cells/UL). Performed By: #### 3 5255-9 #### QUIN Simon ([id number]) [facility] ([facility]) [address] [place] [address] 54825 Lymphocytes (Bld) [#/Vol] 2.35 x10*3/uL Normal 1.20-4.80 [facility] Comment on above: Performed By: #### 3 5255-9 #### QUIN Simon ([id number]) [facility] ([facility]) [address] [place] [address] 90547 Lymphocytes/100 WBC (Bld) 22.0 % Normal 13.0-44.0 [facility] Comment on above: Performed By: #### 3 5255-9 #### QUIN Simon ([id number]) [facility] ([facility]) [address] [place] [address] 71486 MCH (RBC) [Entitic mass] 27.2 pg Normal 26.0-34.0 [facility] Comment on above: Performed By: #### 3 5255-9 #### QUIN Simon ([id number]) [facility] ([facility]) [address] [place] [address] 95837 MCHC (RBC) [Mass/Vol] 31.3 g/dL Low 32.0-36.0 [facility] Comment on above: Performed By: #### 3 5255-9 #### QUIN Simon ([id number]) [facility] ([facility]) [address] [place] [address] 04552 MCV (RBC) [Entitic vol] 87 fL Normal 80-100 [facility] Comment on above: Performed By: #### 3 5255-9 #### QUIN Simon ([id number]) [facility] ([facility]) [address] [place] [address] 07400 Monocytes (Bld) [#/Vol] 0.59 x10*3/uL Normal 0.10-1.00 [facility] Comment on above: Performed By: #### 3 5255-9 #### QUIN Simon ([id number]) [facility] ([facility]) [address] [place] [address] Monocytes/100 WBC (Bld) 5.5 % Normal 2.0-10.0 [facility] Comment on above: Performed By: #### 3 5255-9 #### QUIN Simon ([id number]) [facility] ([facility]) [address] [place] [address] 19583 Neutrophils (Bld) [#/Vol] 7.34 x10*3/uL Normal 1.20-7.70 [facility] Comment on above: Result Comment: Perc ent differential counts (%) should be interpreted in the context of the absolute cell counts (cells/uL). Performed By: #### 3 5255-9 #### QUIN Simon ([id number]) [facility] ([facility]) [address] [place] [address] Neutrophils/100 WBC (Bld) 68.9 % Normal 40.0-80.0 [facility] Comment on above: Performed By: #### 3 5255-9 #### QUIN Simon ([id number]) [facility] ([facility]) [address] [place] [address] 39441 Nucleated RBC/100 WBC (Bld) [Ratio] 0.0 /100 WBCs Normal 0.0-0.0 [facility] Comment on above: Performed By: #### 3 5255-9 #### QUIN iSmon ([id number]) [facility] ([facility]) [address] [place] [address] Platelets (Bld) [#/Vol] 314 x10*3/uL Normal 150-450 [facility] Comment on above: Performed By: #### 3 5255-9 #### QUIN Simon ([id number]) [facility] ([facility]) [address] [place] [address] RBC (Bld) [#/Vol] 4.05 x10*6/uL Normal 4.00-5.20 [facility] Comment on above: Performed By: #### 3 5255-9 #### QUIN Simon ([id number]) [facility] ([facility]) [address] [place] [address] WBC (Bld) [#/Vol] 10.7 x10*3/uL Normal 4.4-11.3 [facility] Comment on above: Performed By: #### 3 5255-9 #### QIUN Simon ([id number]) [facility] ([facility]) [address] [place] [address] US AbdomenOrdered By: Eladio Matthews on 02-16-2025 [facility] Work Phone: Radiology Study observation (narrative) [facility] Work Phone: Glucose Test strip manual (B ld) [Mass/Vol]on 02-13-2025 Glucose [Mass/Vol] 125 mg/dL High 74 - 99 mg/dL [facility] Interpretation and review of laboratory results Abnormal [facility] Rubella virus IgG IA Qnon Rubella virus IgG IA Ql Positive Negative [facility] Work Phone: Rubella virus IgG Qn (S) 1.5 [IU]/mL <=0.7 IA IA [facility] Work Phone: NEGATIVE: No IgG antibodies specific to Rubella detected. It is likely that the patient has not had a previous exposure to Rubella through infection or vaccination. Alternatively, the patient may have been exposed to Rubella but a failure to respond may indicate immunodeficiency. EQUIVOCAL: Equivocal results; obtain an additional sample for re-testing POSITIVE: IgG antibody to Rubella detected. This may indicate that the patient was exposed to Rubella through infection or vaccination. [facility] Work Phone: [facility] Work Phone: Rubella virus IgG IA Ql Positive Normal Negative [facility] Comment on above: Order Comment: The b eta-hydroxybutyrate test performance characteristics have been validated by [facility]. This test has not been approved by the FDA; however such approval is not necessary. Performed By: #### 3 5255-9 #### QUIN Simon ([id number]) [facility] ([facility]) [address] [place] [address] 64302 Rubella virus IgG Qn (S) 1.5 IA Normal <=0.7 IA [facility] Comment on above: Order Comment: The b eta-hydroxybutyrate test performance characteristics have been validated by [facility]. This test has not been approved by the FDA; however such approval is not necessary. Performed By: #### 3 5255-9 #### QUIN Simon ([id number]) [facility] ([facility]) [address] [place] [address] 33715 Glucose Test strip manual (B ld) [Mass/Vol]on 02-12-2025 Glucose [Mass/Vol] 125 mg/dL High 74-99 [facility] Comment on above: Performed By: #### 3 5255-9 #### QUIN Simon ([id number]) [facility] ([facility]) [address] [place] [address] 86678 Glucose [Mass/Vol] 101 mg/dL High 74 - 99 mg/dL [facility] Interpretation and review of laboratory results Abnormal [facility] Glucose [Mass/Vol] 101 mg/dL High 74-99 [facility] Comment on above: Performed By: #### 3 5255-9 #### QUIN Simon ([id number]) [facility] ([facility]) [address] [place] [address] 22558 HBV surface Ag IA Qlon 02-12 Interpretation and review of laboratory results Normal [facility] HIV 1+2 Ab+HIV1 p24 Ag IA Ql on 02-12-2025 Interpretation and review of laboratory results Normal [facility] HIV Ag/Ab screen is performed using the Siemens AtellNuScriptRx HIV Ag/Ab Combo assay which detects the presence of HIV p24 antigen as well as antibodies to HIV-1 (Group M and O) and HIV-2. No laboratory evidence of HIV infection. If acute HIV infection is suspected, consider testing for HIV RNA by PCR (viral load). [facility] HIV 1/2 Antigen/Antibody Scr een with Reflex to Confirmationon 02-12-2025 HIV 1+2 Ab+HIV1 p24 Ag IA Ql Non-Reactive Nonreactive [facility] Hepatitis B surface antigeno n 02-12-2025 HBV surface Ag IA Ql Non-Reactive Nonreactive [facility] Comment on above: Biotin interference may cause falsely decreased results. Patients taking a Biotin dose of up to 5 mg/day should refrain from taking Biotin for 24 hours before sample collection. Providers may contact their local laboratory for further information. Rubella virus IgG IA QnOrder ed By: Naya Khan on 02-12-2025 Rubella virus IgG IA Ql Positive Negative [facility] Rubella virus IgG Qn (S) 1.5 [IU]/mL <=0.7 IA IA [facility] NEGATIVE: No IgG antibodies specific to Rubella detected. It is likely that the patient has not had a previous exposure to Rubella through infection or vaccination. Alternatively, the patient may have been exposed to Rubella but a failure to respond may indicate immunodeficiency. EQUIVOCAL: Equivocal results; obtain an additional sample for re-testing POSITIVE: IgG antibody to Rubella detected. This may indicate that the patient was exposed to Rubella through infection or vaccination. [facility] Streptococcus.beta-hemolytic Org specific cx Ql (Genital specimen)Ordered By: Micheline Sutton on 02-12-2025 Interpretation and review of laboratory results Abnormal [facility] S. agalactiae Org specific cx Ql (Genital specimen) Isolated: Streptococcus agalactiae (Group B Streptococcus) Abnormal [facility] Streptococcus agalac tiae (Group B Streptococcus) is universally susceptible to beta-lactam antibiotics and vancomycin. Routine susceptibility testing not performed. For penicillin allergic patients, please contact the laboratory within 5 days of collection at to request susceptibility testing. [facility] Blood type and Indirect anti body screen panel (Bld)on 02-11-2025 ABO group Nom (Bld) O Unive [facility] Blood group antibody screen Ql Negative [facility] D Ag Ql (Bld) Positive [facility] ABO group Nom (Bld) O Normal [facility] Comment on above: Performed By: #### 1 4804-9 #### QUIN Simon ([id number]) [facility] ([facility]) [address] [place] [address] 87163 Blood group antibody screen Ql Negative Normal [facility] Comment on above: Performed By: #### 1 4804-9 #### QUIN Simon ([id number]) [facility] ([facility]) [address] [place] [address] 58199 D Ag Ql (Bld) Positive Normal [facility] Comment on above: Performed By: #### 1 4804-9 #### QUIN Simon ([id number]) [facility] ([facility]) [address] [place] [address] 03999 Glucose Test strip manual (B ld) [Mass/Vol]on 02-11-2025 Glucose [Mass/Vol] 110 mg/dL High 74 - 99 mg/dL [facility] Interpretation and review of laboratory results Abnormal [facility] Glucose [Mass/Vol] 110 mg/dL High 74-99 [facility] Comment on above: Performed By: #### 3 5255-9 #### QUIN Simon ([id number]) [facility] ([facility]) [address] [place] [address] 35922 Glucose [Mass/Vol] 96 mg/dL 74 - 99 mg/dL [facility] Interpretation and review of laboratory results Normal [facility] Glucose [Mass/Vol] 96 mg/dL Normal 74-99 [facility] Comment on above: Performed By: #### 3 5255-9 #### QUIN Simon ([id number]) [facility] ([facility]) [address] [place] [address] 64319 Glucose [Mass/Vol] 66 mg/dL Low 74 - 99 mg/dL [facility] Interpretation and review of laboratory results Abnormal [facility] Glucose [Mass/Vol] 66 mg/dL Low 74-99 [facility] Comment on above: Performed By: #### 1 4804-9 #### QUIN Simon ([id number]) [facility] ([facility]) [address] [place] [address] 95950 Glucose [Mass/Vol] 72 mg/dL Low 74 - 99 mg/dL [facility] Interpretation and review of laboratory results Abnormal [facility] Glucose [Mass/Vol] 72 mg/dL Low 74-99 [facility] Comment on above: Performed By: #### 1 4804-9 #### QUIN Simon ([id number]) [facility] ([facility]) [address] [place] [address] 85660 Glucose [Mass/Vol] 113 mg/dL High 74 - 99 mg/dL [facility] Interpretation and review of laboratory results Abnormal [facility] Glucose [Mass/Vol] 113 mg/dL High 74-99 [facility] Comment on above: Performed By: #### 1 4804-9 #### QUIN Simon ([id number]) [facility] ([facility]) [address] [place] [address] 93676 Glucose [Mass/Vol] 126 mg/dL High 74 - 99 mg/dL [facility] Interpretation and review of laboratory results Abnormal [facility] Glucose [Mass/Vol] 126 mg/dL High 74-99 [facility] Comment on above: Performed By: #### 1 4804-9 #### QUIN Simon ([id number]) [facility] ([facility]) [address] [place] [address] 84628 Glucose [Mass/Vol] 142 mg/dL High 74 - 99 mg/dL [facility] Interpretation and review of laboratory results Abnormal [facility] Glucose [Mass/Vol] 142 mg/dL High 74-99 [facility] Comment on above: Performed By: #### 1 4804-9 #### QUIN Simon ([id number]) [facility] ([facility]) [address] [place] [address] 69737 Glucose [Mass/Vol] 154 mg/dL High 74 - 99 mg/dL [facility] Interpretation and review of laboratory results Abnormal [facility] Glucose [Mass/Vol] 154 mg/dL High 74-99 [facility] Comment on above: Performed By: #### 1 4804-9 #### QUIN Simon ([id number]) [facility] ([facility]) [address] [place] [address] 44563 Prepare RBC: 1 Unitson 02-11 Blood Expiration Date 03/07/2025 11:59:00 PM EDT [facility] Dispense Status RE [facility] PRODUCT BLOOD TYPE 5100 [facility] PRODUCT CODE [id number] [facility] Unit ABO O [facility] Unit Number [id number] [facility] Unit RH Positive [facility] UNIT VOLUME 279 [facility] XM INTEP COMP [facility] Glucose Test strip manual (B ld) [Mass/Vol]on 02-10-2025 Glucose [Mass/Vol] 138 mg/dL High 74 - 99 mg/dL [facility] Interpretation and review of laboratory results Abnormal [facility] Glucose [Mass/Vol] 138 mg/dL High 74-99 [facility] Comment on above: Performed By: #### 1 4804-9 #### QUIN Simon ([id number]) [facility] ([facility]) [address] [place] [address] 50058 Glucose [Mass/Vol] 101 mg/dL High 74 - 99 mg/dL [facility] Interpretation and review of laboratory results Abnormal [facility] Glucose [Mass/Vol] 101 mg/dL High 74-99 [facility] Comment on above: Performed By: #### 1 4804-9 #### QUIN Simon ([id number]) [facility] ([facility]) [address] [place] [address] 10906 Glucose [Mass/Vol] 124 mg/dL High 74 - 99 mg/dL [facility] Interpretation and review of laboratory results Abnormal [facility] Glucose [Mass/Vol] 124 mg/dL High 74-99 [facility] Comment on above: Performed By: #### 2 4323-8 #### QUIN Simon ([id number]) [facility] ([facility]) [address] [place] [address] 80061 Glucose [Mass/Vol] 157 mg/dL High 74 - 99 mg/dL [facility] Interpretation and review of laboratory results Abnormal [facility] Glucose [Mass/Vol] 157 mg/dL High 74-99 [facility] Comment on above: Performed By: #### 2 4323-8 #### QUIN Simon ([id number]) [facility] ([facility]) [address] [place] [address] 57916 No Panel Informationon 02-10 There is no MRI evid ence of acute infarction on the diffusion weighted images. There are a few small subcortical white matter changes noted within the cerebral hemispheres bilaterally best appreciated bifrontally. While nonspecific, subcortical white matter changes can be seen with migraine headaches, hypertension, small-vessel ischemic change, or demyelinating processes among others. The intracranial MRA demonstrates no significant focal stenosis or aneurysm. The [id number] intracranial MRV is within normal limits without evidence of venous sinus thrombosis. MACRO: None. Signed by: Ranjan Trivedi 02/10/2025 5:28 AM Dictation workstation: [id number] Interpreted By: Ranjan Root, STUDY: MR BRAIN WO IV CONTRAST; MR ANGIO HEAD WO IV CONTRAST; MR VENOGRAPHY INTRACRANIAL WO IV CONTRAST; 02/10/2025 5:02 am INDICATION: Signs/Symptoms:intractabl e headache, sPEC; Signs/Symptoms:intractabl e NIELSEN, sPEC. COMPARISON: None. ACCESSION NUMBER(S): [id number]; [id number]; [id number] ORDERING CLINICIAN: CLAIR CASTRO TECHNIQUE: Axial diffusion, axial T2, axial FLAIR, axial gradient echo T2, coronal T1, and sagittal T1 weighted MRI images of the brain were obtained without intravenous contrast administration. In addition, [id number] MRA and MRV images of the intracranial vessels were obtained. The source MRA and MRV images were reformatted in multiple planes. FINDINGS: The diffusion weighted images fail to demonstrate evidence of abnormal diffusion restriction to suggest acute infarction. The ventricular system is nondilated. There are a few small subcortical white matter changes noted within the cerebral hemispheres bilaterally best appreciated bifrontally. While nonspecific, subcortical white matter changes can be seen with migraine headaches, hypertension, small-vessel ischemic change, or demyelinating processes among others. No abnormal blooming dark signal on the gradient echo T2 images to suggest intracranial hemorrhage is noted. There is no midline shift. The suprasellar/basilar cisterns are patent. The visualized paranasal sinuses are clear. The intracranial MRA demonstrates no significant focal stenosis or aneurysm. The wtuh-pd-szgjph intracranial MRV is within normal limits without evidence of venous sinus thrombosis. [facility] Ranjan Trivedi M D - 02/10/2025 Interpreted By: Ranjan Trivedi, STUDY: MR BRAIN WO IV CONTRAST; MR ANGIO HEAD WO IV CONTRAST; MR VENOGRAPHY INTRACRANIAL WO IV CONTRAST; 02/10/2025 5:02 am INDICATION: Signs/Symptoms:intractabl e headache, sPEC; Signs/Symptoms:intractabl e NIELSEN, sPEC. COMPARISON: None. ACCESSION NUMBER(S): [id number]; [id number]; [id number] ORDERING CLINICIAN: CLAIR CASTRO TECHNIQUE: Axial diffusion, axial T2, axial FLAIR, axial gradient echo T2, coronal T1, and sagittal T1 weighted MRI images of the brain were obtained without intravenous contrast administration. In addition, uavw-jh-vdxqmd MRA and MRV images of the intracranial vessels were obtained. The source MRA and MRV images were reformatted in multiple planes. FINDINGS: The diffusion weighted images fail to demonstrate evidence of abnormal diffusion restriction to suggest acute infarction. The ventricular system is nondilated. There are a few small subcortical white matter changes noted within the cerebral hemispheres bilaterally best appreciated bifrontally. While nonspecific, subcortical white matter changes can be seen with migraine headaches, hypertension, small-vessel ischemic change, or demyelinating processes among others. No abnormal blooming dark signal on the gradient echo T2 images to suggest intracranial hemorrhage is noted. There is no midline shift. The suprasellar/basilar cisterns are patent. The visualized paranasal sinuses are clear. The intracranial MRA demonstrates no significant focal stenosis or aneurysm. The cmdx-rz-rdtnar intracranial MRV is within normal limits without evidence of venous sinus thrombosis. IMPRESSION: There is no MRI evidence of acute infarction on the diffusion weighted images. There are a few small subcortical white matter changes noted within the cerebral hemispheres bilaterally best appreciated bifrontally. While nonspecific, subcortical white matter changes can be seen with migraine headaches, hypertension, small-vessel ischemic change, or demyelinating processes among others. The intracranial MRA demonstrates no significant focal stenosis or aneurysm. The nruw-zc-ubdfen intracranial MRV is within normal limits without evidence of venous sinus thrombosis. MACRO: None. Signed by: Ranjan Trivedi 02/10/2025 5:28 AM Dictation workstation: [id number] [facility] Work Phone: Radiology Study observation (narrative) [facility] Work Phone: No Panel InformationOrdered By: Ranjan Trivedi on 02-10-2025 [facility] Work Phone: CBC panel Auto (Bld)on 02-09 Erythrocyte distribution width (RBC) [Ratio] 13.4 % 11.5 - 14.5 % [facility] Hematocrit (Bld) [Volume fraction] 34.8 % Low 36.0 - 46.0 % [facility] Hemoglobin (Bld) [Mass/Vol] 10.6 g/dL Low 12.0 - 16.0 g/dL [facility] Interpretation and review of laboratory results Abnormal [facility] MCH (RBC) [Entitic mass] 28 pg 26.0 - 34.0 pg [facility] MCHC (RBC) [Mass/Vol] 30.5 g/dL Low 32.0 - 36.0 g/dL [facility] MCV (RBC) [Entitic vol] 92 fL 80 - 100 fL [facility] Nucleated RBC/100 WBC (Bld) [Ratio] 0 % [facility] Platelets (Bld) [#/Vol] 265 10*3/uL [facility] RBC (Bld) [#/Vol] 3.78 10*6/uL Low [facility] WBC (Bld) [#/Vol] 18.5 10*3/uL [facility] Erythrocyte distribution width (RBC) [Ratio] 13.4 % Normal 11.5-14.5 [facility] Comment on above: Performed By: #### 2 4323-8 #### QUIN Simon ([id number]) [facility] ([facility]) [address] [place] [address] 39015 Hematocrit (Bld) [Volume fraction] 34.8 % Low 36.0-46.0 [facility] Comment on above: Performed By: #### 2 4323-8 #### QUIN Simon ([id number]) [facility] ([facility]) [address] [place] [address] 32068 Hemoglobin (Bld) [Mass/Vol] 10.6 g/dL Low 12.0-16.0 [facility] Comment on above: Performed By: #### 2 4323-8 #### QUIN Simon ([id number]) [facility] ([facility]) [address] [place] [address] 21271 MCH (RBC) [Entitic mass] 28.0 pg Normal 26.0-34.0 [facility] Comment on above: Performed By: #### 2 4323-8 #### QUIN Simon ([id number]) [facility] ([facility]) [address] [place] [address] 10023 MCHC (RBC) [Mass/Vol] 30.5 g/dL Low 32.0-36.0 [facility] Comment on above: Performed By: #### 2 4323-8 #### QUIN Simon ([id number]) [facility] ([facility]) [address] [place] [address] 63011 MCV (RBC) [Entitic vol] 92 fL Normal 80-100 [facility] Comment on above: Performed By: #### 2 4323-8 #### QUIN Simon ([id number]) [facility] ([facility]) [address] [place] [address] Nucleated RBC/100 WBC (Bld) [Ratio] 0.0 /100 WBCs Normal 0.0-0.0 [facility] Comment on above: Performed By: #### 2 4323-8 #### QUIN Simon ([id number]) [facility] ([facility]) [address] [place] [address] Platelets (Bld) [#/Vol] 265 x10*3/uL Normal 150-450 [facility] Comment on above: Performed By: #### 2 4323-8 #### QUIN Simon ([id number]) [facility] ([facility]) [address] [place] [address] 00666 RBC (Bld) [#/Vol] 3.78 x10*6/uL Low 4.00-5.20 [facility] Comment on above: Performed By: #### 2 4323-8 #### QUIN Simon ([id number]) [facility] ([facility]) [address] [place] [address] 85980 WBC (Bld) [#/Vol] 18.5 x10*3/uL High 4.4-11.3 [facility] Comment on above: Performed By: #### 2 4323-8 #### QUIN Simon ([id number]) [facility] ([facility]) [address] [place] [address] 56233 Erythrocyte distribution width (RBC) [Ratio] 13.3 % 11.5 - 14.5 % [facility] Hematocrit (Bld) [Volume fraction] 35.4 % Low 36.0 - 46.0 % [facility] Hemoglobin (Bld) [Mass/Vol] 11.2 g/dL Low 12.0 - 16.0 g/dL [facility] Interpretation and review of laboratory results Abnormal [facility] MCH (RBC) [Entitic mass] 28.3 pg 26.0 - 34.0 pg [facility] MCHC (RBC) [Mass/Vol] 31.6 g/dL Low 32.0 - 36.0 g/dL [facility] MCV (RBC) [Entitic vol] 89 fL 80 - 100 fL [facility] Nucleated RBC/100 WBC (Bld) [Ratio] 0 % [facility] Platelets (Bld) [#/Vol] 266 10*3/uL [facility] RBC (Bld) [#/Vol] 3.96 10*6/uL Low [facility] WBC (Bld) [#/Vol] 19.1 10*3/uL High [facility] Erythrocyte distribution width (RBC) [Ratio] 13.3 % Normal 11.5-14.5 [facility] Comment on above: Performed By: #### 2 4323-8 #### QUIN Simon ([id number]) [facility] ([facility]) [address] [place] [address] 51520 Hematocrit (Bld) [Volume fraction] 35.4 % Low 36.0-46.0 [facility] Comment on above: Performed By: #### 2 3843-8 #### QUIN Simon ([id number]) [facility] ([facility]) [address] [place] [address] 10713 Hemoglobin (Bld) [Mass/Vol] 11.2 g/dL Low 12.0-16.0 [facility] Comment on above: Performed By: #### 2 4323-8 #### QUIN Simon ([id number]) [facility] ([facility]) [address] [place] [address] 00894 MCH (RBC) [Entitic mass] 28.3 pg Normal 26.0-34.0 [facility] Comment on above: Performed By: #### 2 4323-8 #### QUIN Simon ([id number]) [facility] ([facility]) [address] [place] [address] 16683 MCHC (RBC) [Mass/Vol] 31.6 g/dL Low 32.0-36.0 [facility] Comment on above: Performed By: #### 2 4323-8 #### QUIN Simon ([id number]) [facility] ([facility]) [address] [place] [address] MCV (RBC) [Entitic vol] 89 fL Normal 80-100 [facility] Comment on above: Performed By: #### 2 4323-8 #### QUIN Simon ([id number]) [facility] ([facility]) [address] [place] [address] 58142 Nucleated RBC/100 WBC (Bld) [Ratio] 0.0 /100 WBCs Normal 0.0-0.0 [facility] Comment on above: Performed By: #### 2 4323-8 #### QUIN Simon ([id number]) [facility] ([facility]) [address] [place] [address] 12545 Platelets (Bld) [#/Vol] 266 x10*3/uL Normal 150-450 [facility] Comment on above: Performed By: #### 2 4323-8 #### QUIN Simon ([id number]) [facility] ([facility]) [address] [place] [address] 21971 RBC (Bld) [#/Vol] 3.96 x10*6/uL Low 4.00-5.20 [facility] Comment on above: Performed By: #### 2 4323-8 #### QUIN Simon ([id number]) [facility] ([facility]) [address] [place] [address] 08773 WBC (Bld) [#/Vol] 19.1 x10*3/uL High 4.4-11.3 [facility] Comment on above: Performed By: #### 2 4323-8 #### QUIN Simon ([id number]) [facility] ([facility]) [address] [place] [address] 73250 Comprehensive metabolic 2000 panelon 02-09-2025 Albumin BCP dye [Mass/Vol] 3.1 g/dL Low 3.4 - 5.0 g/dL [facility] ALP [Catalytic activity/Vol] 80 U/L 33 - 110 U/L [facility] ALT With P-5'-P [Catalytic activity/Vol] 6 U/L Low 7 - 45 U/L [facility] Comment on above: Patients treated wit h Sulfasalazine may generate falsely decreased results for ALT. Anion gap [Moles/Vol] 16 mmol/L 10 - 2 0 mmol/L [facility] AST With P-5'-P [Catalytic activity/Vol] 18 U/L 9 - 39 U/L [facility] Comment on above: MILD HEMOLYSIS DETEC STEFF. The result may be falsely elevated due to hemolysis or other interferents. Clinical correlation is recommended. Repeat testing may be considered. Bilirubin [Mass/Vol] 0.6 mg/dL 0.0 - 1 .2 mg/dL [facility] Calcium [Mass/Vol] 8 mg/dL Low 8.6 - 10. 6 mg/dL [facility] Chloride [Moles/Vol] 106 mmol/L 98 - 10 7 mmol/L [facility] CO2 [Moles/Vol] 17 mmol/L Low 21 - 32 mmol/L [facility] Creatinine [Mass/Vol] 0.54 mg/dL 0.50 - 1.05 mg/dL [facility] eGFR - PINF [facility] Comment on above: Calculations of zoya mated GFR are performed using the 2020 CKD-EPI Study Refit equation without the race variable for the IDMS-Traceable creatinine methods. https://jasn.asnjournals.org/content//ASN.784319 1896 Glucose [Mass/Vol] 113 mg/dL High 74 - 99 mg/dL [facility] Interpretation and review of laboratory results Abnormal [facility] Potassium [Moles/Vol] 4.1 mmol/L 3.5 - 5.3 mmol/L [facility] Comment on above: MILD HEMOLYSIS DETEC STEFF. The result may be falsely elevated due to hemolysis or other interferents. Clinical correlation is recommended. Repeat testing may be considered. Protein [Mass/Vol] 6 g/dL Low 6.4 - 8.2 g/dL [facility] Sodium [Moles/Vol] 135 mmol/L Low 136 - 145 mmol/L [facility] Urea nitrogen [Mass/Vol] 9 mg/dL 6 - 23 mg/dL [facility] Albumin BCP dye [Mass/Vol] 3.1 g/dL Low 3.4-5.0 [facility] Comment on above: Performed By: #### 2 4323-8 #### QUIN Simon ([id number]) [facility] ([facility]) [address] [place] [address] ALP [Catalytic activity/Vol] 80 U/L Normal 33-110 [facility] Comment on above: Performed By: #### 2 4323-8 #### QUIN Simon ([id number]) [facility] ([facility]) [address] [place] [address] 95845 ALT With P-5'-P [Catalytic activity/Vol] 6 U/L Low 7-45 [facility] Comment on above: Result Comment: Nguyen ents treated with Sulfasalazine may generate falsely decreased results for ALT. Performed By: #### 2 4323-8 #### QUIN Simon ([id number]) [facility] ([facility]) [address] [place] [address] 88326 Anion gap [Moles/Vol] 16 mmol/L Normal 10-20 [facility] Comment on above: Performed By: #### 2 4323-8 #### QUIN Simon ([id number]) [facility] ([facility]) [address] [place] [address] 02508 AST With P-5'-P [Catalytic activity/Vol] 18 U/L Normal 9-39 [facility] Comment on above: Result Comment: MILD HEMOLYSIS DETECTED. The result may be falsely elevated due to hemolysis or other interferents. Clinical correlation is recommended. Repeat testing may be considered. Performed By: #### 2 4323-8 #### QUIN Simon ([id number]) [facility] ([facility]) [address] [place] [address] 50504 Bilirubin [Mass/Vol] 0.6 mg/dL Normal 0.0-1.2 [facility] Comment on above: Performed By: #### 2 4323-8 #### QUIN Simon ([id number]) [facility] ([facility]) [address] [place] [address] Calcium [Mass/Vol] 8.0 mg/dL Low 8.6-10.6 [facility] Comment on above: Performed By: #### 2 4323-8 #### QUIN HARTMAN L ([id number]) [facility] ([facility]) [address] [place] [address] Chloride [Moles/Vol] 106 mmol/L Normal 98-107 [facility] Comment on above: Performed By: #### 2 4323-8 #### QUIN HARTMAN L ([id number]) [facility] ([facility]) [address] [place] [address] 34895 CO2 [Moles/Vol] 17 mmol/L Low 21-32 [facility] Comment on above: Performed By: #### 2 4323-8 #### QUIN HARTMAN L ([id number]) [facility] ([facility]) [address] [place] [address] 53162 Creatinine [Mass/Vol] 0.54 mg/dL Normal 0.50-1.05 [facility] Comment on above: Performed By: #### 2 4323-8 #### QUIN HARTMAN L ([id number]) [facility] ([facility]) [address] [place] [address] 16251 GFR/1.73 sq M.predicted MDRD (S/P/Bld) [Vol rate/Area] mL/min/{1.73_m2} Normal >60 [facility] Comment on above: Result Comment: Calc ulations of estimated GFR are performed using the 2020 CKD-EPI Study Refit equation without the race variable for the IDMS-Traceable creatinine methods. https://jasn.asnjournals.org/content/early//ASN.537549 8920 Performed By: #### 2 4323-8 #### QUIN HARTMAN L ([id number]) [facility] ([facility]) [address] [place] [address] 50548 Glucose [Mass/Vol] 113 mg/dL High 74-99 [facility] Comment on above: Performed By: #### 2 4323-8 #### QUIN Simon ([id number]) [facility] ([facility]) [address] [place] [address] 19828 Potassium [Moles/Vol] 4.1 mmol/L Normal 3.5-5.3 [facility] Comment on above: Result Comment: MILD HEMOLYSIS DETECTED. The result may be falsely elevated due to hemolysis or other interferents. Clinical correlation is recommended. Repeat testing may be considered. Performed By: #### 2 4323-8 #### QUIN Simon ([id number]) [facility] ([facility]) [address] [place] [address] 74239 Protein [Mass/Vol] 6.0 g/dL Low 6.4-8.2 [facility] Comment on above: Performed By: #### 2 4323-8 #### QUIN Simon ([id number]) [facility] ([facility]) [address] [place] [address] 38030 Sodium [Moles/Vol] 135 mmol/L Low 136-145 [facility] Comment on above: Performed By: #### 2 4323-8 #### QUIN Simon ([id number]) [facility] ([facility]) [address] [place] [address] 24232 Urea nitrogen [Mass/Vol] 9 mg/dL Normal 6-23 [facility] Comment on above: Performed By: #### 2 4323-8 #### QUIN Simon ([id number]) [facility] ([facility]) [address] [place] [address] 66073 Albumin BCP dye [Mass/Vol] 3.3 g/dL Low 3.4 - 5.0 g/dL [facility] ALP [Catalytic activity/Vol] 87 U/L 33 - 110 U/L [facility] ALT With P-5'-P [Catalytic activity/Vol] 7 U/L 7 - 45 U/L [facility] Comment on above: Patients treated wit h Sulfasalazine may generate falsely decreased results for ALT. Anion gap [Moles/Vol] 13 mmol/L 10 - 2 0 mmol/L [facility] AST With P-5'-P [Catalytic activity/Vol] 10 U/L 9 - 39 U/L [facility] Bilirubin [Mass/Vol] 0.4 mg/dL 0.0 - 1 .2 mg/dL [facility] Calcium [Mass/Vol] 8.5 mg/dL Low 8.6 - 10. 6 mg/dL [facility] Chloride [Moles/Vol] 105 mmol/L 98 - 10 7 mmol/L [facility] CO2 [Moles/Vol] 22 mmol/L 21 - 32 mmol/L [facility] Creatinine [Mass/Vol] 0.52 mg/dL 0.50 - 1.05 mg/dL [facility] eGFR - PINF [facility] Comment on above: Calculations of zoya mated GFR are performed using the 2020 CKD-EPI Study Refit equation without the race variable for the IDMS-Traceable creatinine methods. https://jasn.asnjournals.org/content/early//ASN.604215 6127 Glucose [Mass/Vol] 136 mg/dL High 74 - 99 mg/dL [facility] Interpretation and review of laboratory results Abnormal [facility] Potassium [Moles/Vol] 3.9 mmol/L 3.5 - 5.3 mmol/L [facility] Protein [Mass/Vol] 6.2 g/dL Low 6.4 - 8.2 g/dL [facility] Sodium [Moles/Vol] 136 mmol/L 136 - 145 mmol/L [facility] Urea nitrogen [Mass/Vol] 8 mg/dL 6 - 23 mg/dL [facility] Albumin BCP dye [Mass/Vol] 3.3 g/dL Low 3.4-5.0 [facility] Comment on above: Performed By: #### 2 4323-8 #### QUIN Simon ([id number]) [facility] ([facility]) [address] [place] [address] ALP [Catalytic activity/Vol] 87 U/L Normal 33-110 [facility] Comment on above: Performed By: #### 2 4323-8 #### QUIN Simon ([id number]) [facility] ([facility]) [address] [place] [address] ALT With P-5'-P [Catalytic activity/Vol] 7 U/L Normal 7-45 [facility] Comment on above: Result Comment: Nguyen ents treated with Sulfasalazine may generate falsely decreased results for ALT. Performed By: #### 2 4323-8 #### QUIN Simon ([id number]) [facility] ([facility]) [address] [place] [address] Anion gap [Moles/Vol] 13 mmol/L Normal 10-20 [facility] Comment on above: Performed By: #### 2 4323-8 #### QUIN Simon ([id number]) [facility] ([facility]) [address] [place] [address] AST With P-5'-P [Catalytic activity/Vol] 10 U/L Normal 9-39 [facility] Comment on above: Performed By: #### 2 4323-8 #### QUIN Simon ([id number]) [facility] ([facility]) [address] [place] [address] Bilirubin [Mass/Vol] 0.4 mg/dL Normal 0.0-1.2 [facility] Comment on above: Performed By: #### 2 4323-8 #### QUIN Simon ([id number]) [facility] ([facility]) [address] [place] [address] Calcium [Mass/Vol] 8.5 mg/dL Low 8.6-10.6 [facility] Comment on above: Performed By: #### 2 4323-8 #### QUIN Simon ([id number]) [facility] ([facility]) [address] [place] [address] Chloride [Moles/Vol] 105 mmol/L Normal 98-107 [facility] Comment on above: Performed By: #### 2 4323-8 #### QUIN Simon ([id number]) [facility] ([facility]) [address] [place] [address] CO2 [Moles/Vol] 22 mmol/L Normal 21-32 [facility] Comment on above: Performed By: #### 2 4323-8 #### QUIN Simon ([id number]) [facility] ([facility]) [address] [place] [address] 16017 Creatinine [Mass/Vol] 0.52 mg/dL Normal 0.50-1.05 [facility] Comment on above: Performed By: #### 2 4323-8 #### QUIN Simon ([id number]) [facility] ([facility]) [address] [place] [address] 87070 GFR/1.73 sq M.predicted MDRD (S/P/Bld) [Vol rate/Area] mL/min/{1.73_m2} Normal >60 [facility] Comment on above: Result Comment: Calc ulations of estimated GFR are performed using the 2020 CKD-EPI Study Refit equation without the race variable for the IDMS-Traceable creatinine methods. https://jasn.asnjournals.org/content/early//ASN.693937 8685 Performed By: #### 2 4323-8 #### QUIN Simon ([id number]) [facility] ([facility]) [address] [place] [address] 29006 Glucose [Mass/Vol] 136 mg/dL High 74-99 [facility] Comment on above: Performed By: #### 2 4323-8 #### QUIN Simon ([id number]) [facility] ([facility]) [address] [place] [address] 30153 Potassium [Moles/Vol] 3.9 mmol/L Normal 3.5-5.3 [facility] Comment on above: Performed By: #### 2 4323-8 #### QUIN Simon ([id number]) [facility] ([facility]) [address] [place] [address] 93944 Protein [Mass/Vol] 6.2 g/dL Low 6.4-8.2 [facility] Comment on above: Performed By: #### 2 4323-8 #### QUIN Simon ([id number]) [facility] ([facility]) [address] [place] [address] 08716 Sodium [Moles/Vol] 136 mmol/L Normal 136-145 [facility] Comment on above: Performed By: #### 2 4323-8 #### QUIN Simon ([id number]) [facility] ([facility]) [address] [place] [address] 36919 Urea nitrogen [Mass/Vol] 8 mg/dL Normal 6-23 [facility] Comment on above: Performed By: #### 2 4323-8 #### QUIN Simon ([id number]) [facility] ([facility]) [address] [place] [address] 94690 HIV 1+2 Ab+HIV1 p24 Agon HIV 1+2 Ab+HIV1 p24 Ag IA Ql Non-Reactive Normal Nonreactive [facility] Comment on above: Order Comment: The b eta-hydroxybutyrate test performance characteristics have been validated by [facility]. This test has not been approved by the FDA; however such approval is not necessary. Performed By: #### 3 5255-9 #### QUIN Simon ([id number]) [facility] ([facility]) [address] [place] [address] 80609 MR ANGIO HEAD WO IV CONTRAST on 02-09-2025 MR ANGIO HEAD WO IV CONTRAST Interpreted By: Rajnan Trivedi, STUDY: MR BRAIN WO IV CONTRAST; MR ANGIO HEAD WO IV CONTRAST; MR VENOGRAPHY INTRACRANIAL WO IV CONTRAST; 02/10/2025 5:02 am INDICATION: Signs/Symptoms:intractabl e headache, sPEC; Signs/Symptoms:intractabl e NIELSEN, sPEC. COMPARISON: None. ACCESSION NUMBER(S): [id number]; [id number]; [id number] ORDERING CLINICIAN: CLAIR CASTRO TECHNIQUE: Axial diffusion, axial T2, axial FLAIR, axial gradient echo T2, coronal T1, and sagittal T1 weighted MRI images of the brain were obtained without intravenous contrast administration. In addition, liwu-rc-klmhxv MRA and MRV images of the intracranial vessels were obtained. The source MRA and MRV images were reformatted in multiple planes. FINDINGS: The diffusion weighted images fail to demonstrate evidence of abnormal diffusion restriction to suggest acute infarction. The ventricular system is nondilated. There are a few small subcortical white matter changes noted within the cerebral hemispheres bilaterally best appreciated bifrontally. While nonspecific, subcortical white matter changes can be seen with migraine headaches, hypertension, small-vessel ischemic change, or demyelinating processes among others. No abnormal blooming dark signal on the gradient echo T2 images to suggest intracranial hemorrhage is noted. There is no midline shift. The suprasellar/basilar cisterns are patent. The visualized paranasal sinuses are clear. The intracranial MRA demonstrates no significant focal stenosis or aneurysm. The sqqv-tf-byodiv intracranial MRV is within normal limits without evidence of venous sinus thrombosis. IMPRESSION: There is no MRI evidence of acute infarction on the diffusion weighted images. There are a few small subcortical white matter changes noted within the cerebral hemispheres bilaterally best appreciated bifrontally. While nonspecific, subcortical white matter changes can be seen with migraine headaches, hypertension, small-vessel ischemic change, or demyelinating processes among others. The intracranial MRA demonstrates no significant focal stenosis or aneurysm. The wuov-aa-nacggy intracranial MRV is within normal limits without evidence of venous sinus thrombosis. MACRO: None. Signed by: Ranjan Trivedi 02/10/2025 5:28 AM Dictation workstation: [id number] [facility] MR BRAIN WO IV CONTRASTon MR BRAIN WO IV CONTRAST Interpreted By: Ranjan Trivedi, STUDY: MR BRAIN WO IV CONTRAST; MR ANGIO HEAD WO IV CONTRAST; MR VENOGRAPHY INTRACRANIAL WO IV CONTRAST; 02/10/2025 5:02 am INDICATION: Signs/Symptoms:intractabl e headache, sPEC; Signs/Symptoms:intractabl e NIELSEN, sPEC. COMPARISON: None. ACCESSION NUMBER(S): [id number]; [id number]; [id number] ORDERING CLINICIAN: CLAIR CASTRO TECHNIQUE: Axial diffusion, axial T2, axial FLAIR, axial gradient echo T2, coronal T1, and sagittal T1 weighted MRI images of the brain were obtained without intravenous contrast administration. In addition, dmha-ug-pvqgop MRA and MRV images of the intracranial vessels were obtained. The source MRA and MRV images were reformatted in multiple planes. FINDINGS: The diffusion weighted images fail to demonstrate evidence of abnormal diffusion restriction to suggest acute infarction. The ventricular system is nondilated. There are a few small subcortical white matter changes noted within the cerebral hemispheres bilaterally best appreciated bifrontally. While nonspecific, subcortical white matter changes can be seen with migraine headaches, hypertension, small-vessel ischemic change, or demyelinating processes among others. No abnormal blooming dark signal on the gradient echo T2 images to suggest intracranial hemorrhage is noted. There is no midline shift. The suprasellar/basilar cisterns are patent. The visualized paranasal sinuses are clear. The intracranial MRA demonstrates no significant focal stenosis or aneurysm. The wcrc-qz-xljekn intracranial MRV is within normal limits without evidence of venous sinus thrombosis. IMPRESSION: There is no MRI evidence of acute infarction on the diffusion weighted images. There are a few small subcortical white matter changes noted within the cerebral hemispheres bilaterally best appreciated bifrontally. While nonspecific, subcortical white matter changes can be seen with migraine headaches, hypertension, small-vessel ischemic change, or demyelinating processes among others. The intracranial MRA demonstrates no significant focal stenosis or aneurysm. The wlvn-il-xupuyn intracranial MRV is within normal limits without evidence of venous sinus thrombosis. MACRO: None. Signed by: Ranjan Trivedi 02/10/2025 5:28 AM Dictation workstation: [id number] [facility] MR VENOGRAPHY INTRACRANIAL W O IV CONTRASTon 02-09-2025 MR VENOGRAPHY INTRACRANIAL WO IV CONTRAST Interpreted By: Ranjan Trivedi, STUDY: MR BRAIN WO IV CONTRAST; MR ANGIO HEAD WO IV CONTRAST; MR VENOGRAPHY INTRACRANIAL WO IV CONTRAST; 02/10/2025 5:02 am INDICATION: Signs/Symptoms:intractabl e headache, sPEC; Signs/Symptoms:intractabl e NIELSEN, sPEC. COMPARISON: None. ACCESSION NUMBER(S): [id number]; [id number]; [id number] ORDERING CLINICIAN: CLAIR CASTRO TECHNIQUE: Axial diffusion, axial T2, axial FLAIR, axial gradient echo T2, coronal T1, and sagittal T1 weighted MRI images of the brain were obtained without intravenous contrast administration. In addition, epmj-ja-rdiqcf MRA and MRV images of the intracranial vessels were obtained. The source MRA and MRV images were reformatted in multiple planes. FINDINGS: The diffusion weighted images fail to demonstrate evidence of abnormal diffusion restriction to suggest acute infarction. The ventricular system is nondilated. There are a few small subcortical white matter changes noted within the cerebral hemispheres bilaterally best appreciated bifrontally. While nonspecific, subcortical white matter changes can be seen with migraine headaches, hypertension, small-vessel ischemic change, or demyelinating processes among others. No abnormal blooming dark signal on the gradient echo T2 images to suggest intracranial hemorrhage is noted. There is no midline shift. The suprasellar/basilar cisterns are patent. The visualized paranasal sinuses are clear. The intracranial MRA demonstrates no significant focal stenosis or aneurysm. The cprr-ob-zrxxtc intracranial MRV is within normal limits without evidence of venous sinus thrombosis. IMPRESSION: There is no MRI evidence of acute infarction on the diffusion weighted images. There are a few small subcortical white matter changes noted within the cerebral hemispheres bilaterally best appreciated bifrontally. While nonspecific, subcortical white matter changes can be seen with migraine headaches, hypertension, small-vessel ischemic change, or demyelinating processes among others. The intracranial MRA demonstrates no significant focal stenosis or aneurysm. The tufv-qo-esasyk intracranial MRV is within normal limits without evidence of venous sinus thrombosis. MACRO: None. Signed by: Ranjan Trivedi 02/10/2025 5:28 AM Dictation workstation: [id number] Normal [facility] Rubella virus IgG IA Qnon Rubella virus IgG IA Ql Positive Normal Negative [facility] Comment on above: Order Comment: The b eta-hydroxybutyrate test performance characteristics have been validated by [facility]. This test has not been approved by the FDA; however such approval is not necessary. Performed By: #### 3 5255-9 #### QUIN Simon ([id number]) [facility] ([facility]) [address] [place] [address] Rubella virus IgG Qn (S) 1.5 IA Normal <=0.7 IA [facility] Comment on above: Order Comment: The b eta-hydroxybutyrate test performance characteristics have been validated by [facility]. This test has not been approved by the FDA; however such approval is not necessary. Performed By: #### 3 5255-9 #### QUIN Simon ([id number]) [facility] ([facility]) [address] [place] [address] Syphilis Screen with ReflexO rdered By: Alexandre Kenny on 02-09-2025 T. pallidum IgG+IgM IA Ql (S) Non-Reactive Nonreactive [facility] Comment on above: No significant level of Treponema pallidum antibody detected. Repeat testing in 2 to 4 weeks may be considered if early infection or incubating syphilis infection is suspected. T. pallidum IgG+IgM IA Ql (S )Ordered By: Alexandre Kenny on 02-09-2025 Interpretation and review of laboratory results Normal [facility] Beta hydroxybutyrate [Mass o r moles/Vol]on 02-08-2025 Beta hydroxybutyrate [Moles/Vol] 0.15 mmol/L 0.02 - 0.27 mmol/L [facility] The beta-hydroxybuty rate test performance characteristics have been validated by [facility]. This test has not been approved by the FDA; however such approval is not necessary. [facility] Beta hydroxybutyrate [Moles/Vol] 0.15 mmol/L Normal 0.02-0.27 [facility] Comment on above: Order Comment: The b eta-hydroxybutyrate test performance characteristics have been validated by [facility]. This test has not been approved by the FDA; however such approval is not necessary. Performed By: #### 3 084-1 #### QUIN Simon ([id number]) [facility] ([facility]) [address] [place] [address] Blood type and Indirect anti body screen panel (Bld)on 02-08-2025 ABO group Nom (Bld) O [facility] Blood group antibody screen Ql Negative [facility] D Ag Ql (Bld) Positive [facility] ABO group Nom (Bld) O Normal [facility] Comment on above: Performed By: #### 3 084-1 #### QUIN Simon ([id number]) [facility] ([facility]) [id number] [place] [address] Blood group antibody screen Ql Negative [facility] Comment on above: Performed By: #### 3 084-1 #### QUIN Simon ([id number]) [facility] ([facility]) [id number] [place], [place] [id number] D Ag Ql (Bld) Positive [facility] Comment on above: Performed By: #### 3 084-1 #### QUIN Simon ([id number]) [facility] ([facility]) [address] [place], [place] [id number] CBC panel Auto (d)on 02-08 Erythrocyte distribution width (RBC) [Ratio] 13.2 % 11.5 - 14.5 % [facility] Hematocrit (Bld) [Volume fraction] 36.6 % 36.0 - 46.0 % [facility] Hemoglobin (Bld) [Mass/Vol] 11.9 g/dL Low 12.0 - 16.0 g/dL [facility] Interpretation and review of laboratory results Abnormal [facility] MCH (RBC) [Entitic mass] 28.1 pg 26.0 - 34.0 pg [facility] MCHC (RBC) [Mass/Vol] 32.5 g/dL 32.0 - 36.0 g/dL [facility] MCV (RBC) [Entitic vol] 87 fL 80 - 100 fL [facility] Nucleated RBC/100 WBC (Bld) [Ratio] 0 % [facility] Platelets (Bld) [#/Vol] 297 10*3/uL [facility] RBC (Bld) [#/Vol] 4.23 10*6/uL [facility] WBC (Bld) [#/Vol] 15.8 10*3/uL High Unive [facility] Erythrocyte distribution width (RBC) [Ratio] 13.2 % Normal 11.5-14.5 [facility] Comment on above: Performed By: #### 3 084-1 #### QUIN Simon ([id number]) [facility] ([facility]) [address] [place] [address]1026 Hematocrit (Bld) [Volume fraction] 36.6 % Normal 36.0-46.0 [facility] Comment on above: Performed By: #### 3 084-1 #### QUIN Simon ([id number]) [facility] ([facility]) [address] [place] [address]15 Hemoglobin (Bld) [Mass/Vol] 11.9 g/dL Low 12.0-16.0 [facility] Comment on above: Performed By: #### 3 084-1 #### QUIN Simon ([id number]) [facility] ([facility]) [address] [place] [address]1462 MCH (RBC) [Entitic mass] 28.1 pg Normal 26.0-34.0 [facility] Comment on above: Performed By: #### 3 084-1 #### QUIN Simon ([id number]) [facility] ([facility]) [address] [place] [address]21 MCHC (RBC) [Mass/Vol] 32.5 g/dL Normal 32.0-36.0 [facility] Comment on above: Performed By: #### 3 084-1 #### QUIN Simon ([id number]) [facility] ([facility]) [address] [place] [address] 23097 MCV (RBC) [Entitic vol] 87 fL Normal 80-100 [facility] Comment on above: Performed By: #### 3 084-1 #### QUIN Simon ([id number]) [facility] ([facility]) [address] [place] [address] 29687 Nucleated RBC/100 WBC (Bld) [Ratio] 0.0 /100 WBCs Normal 0.0-0.0 [facility] Comment on above: Performed By: #### 3 084-1 #### QUIN Simon ([id number]) [facility] ([facility]) [address] [place] [address] 51061 Platelets (Bld) [#/Vol] 297 x10*3/uL Normal 150-450 [facility] Comment on above: Performed By: #### 3 084-1 #### QUIN Simon ([id number]) [facility] ([facility]) [address] [place] [address] RBC (Bld) [#/Vol] 4.23 x10*6/uL Normal 4.00-5.20 [facility] Comment on above: Performed By: #### 3 084-1 #### QUIN HARTMAN L ([id number]) [facility] ([facility]) [address] [place] [address] WBC (Bld) [#/Vol] 15.8 x10*3/uL High 4.4-11.3 [facility] Comment on above: Performed By: #### 3 084-1 #### QUIN HARTMAN L ([id number]) [facility] ([facility]) [address] [place] [address] Comprehensive metabolic 2000 panelon 02-08-2025 Albumin BCP dye [Mass/Vol] 3.5 g/dL 3.4 - 5.0 g/dL [facility] ALP [Catalytic activity/Vol] 89 U/L 33 - 110 U/L [facility] ALT With P-5'-P [Catalytic activity/Vol] 7 U/L 7 - 45 U/L [facility] Comment on above: Patients treated wit h Sulfasalazine may generate falsely decreased results for ALT. Anion gap [Moles/Vol] 13 mmol/L 10 - 2 0 mmol/L [facility] AST With P-5'-P [Catalytic activity/Vol] 9 U/L 9 - 39 U/L [facility] Bilirubin [Mass/Vol] 0.5 mg/dL 0.0 - 1 .2 mg/dL [facility] Calcium [Mass/Vol] 9.4 mg/dL 8.6 - 10. 6 mg/dL [facility] Chloride [Moles/Vol] 106 mmol/L 98 - 10 7 mmol/L [facility] CO2 [Moles/Vol] 21 mmol/L 21 - 32 mmol/L [facility] Creatinine [Mass/Vol] 0.51 mg/dL 0.50 - 1.05 mg/dL [facility] eGFR - PINF [facility] Comment on above: Calculations of zoya mated GFR are performed using the 2020 CKD-EPI Study Refit equation without the race variable for the IDMS-Traceable creatinine methods. https://jasn.asnjournals.org/content//ASN.410872 1662 Glucose [Mass/Vol] 104 mg/dL High 74 - 99 mg/dL [facility] Interpretation and review of laboratory results Abnormal [facility] Potassium [Moles/Vol] 4.1 mmol/L 3.5 - 5.3 mmol/L [facility] Protein [Mass/Vol] 6.5 g/dL 6.4 - 8.2 g/dL [facility] Sodium [Moles/Vol] 136 mmol/L 136 - 145 mmol/L [facility] Urea nitrogen [Mass/Vol] 9 mg/dL 6 - 23 mg/dL [facility] Albumin BCP dye [Mass/Vol] 3.5 g/dL Normal 3.4-5.0 [facility] Comment on above: Performed By: #### 3 084-1 #### QUIN Simon ([id number]) [facility] ([facility]) [id number] [place] [address]3653 ALP [Catalytic activity/Vol] 89 U/L Normal 33-110 [facility] Comment on above: Performed By: #### 3 084-1 #### QUIN Simon ([id number]) [facility] ([facility]) [address] [place] [address] ALT With P-5'-P [Catalytic activity/Vol] 7 U/L Normal 7-45 [facility] Comment on above: Result Comment: Nguyen ents treated with Sulfasalazine may generate falsely decreased results for ALT. Performed By: #### 3 084-1 #### QUIN Simon ([id number]) [facility] ([facility]) [address] [place] [address] Anion gap [Moles/Vol] 13 mmol/L Normal 10-20 [facility] Comment on above: Performed By: #### 3 084-1 #### QUIN Simon ([id number]) [facility] ([facility]) [address] [place] [address] AST With P-5'-P [Catalytic activity/Vol] 9 U/L Normal 9-39 [facility] Comment on above: Performed By: #### 3 084-1 #### QUIN Simon ([id number]) [facility] ([facility]) [address] [place] [address] Bilirubin [Mass/Vol] 0.5 mg/dL Normal 0.0-1.2 [facility] Comment on above: Performed By: #### 3 084-1 #### QUIN Simon ([id number]) [facility] ([facility]) [address] [place] [address]4739 Calcium [Mass/Vol] 9.4 mg/dL Normal 8.6-10.6 [facility] Comment on above: Performed By: #### 3 084-1 #### QUIN Simon ([id number]) [facility] ([facility]) [address] [place] [address] 19397 Chloride [Moles/Vol] 106 mmol/L Normal 98-107 [facility] Comment on above: Performed By: #### 3 084-1 #### QUIN Simon ([id number]) [facility] ([facility]) [address] [place] [address]1154 CO2 [Moles/Vol] 21 mmol/L Normal 21-32 [facility] Comment on above: Performed By: #### 3 084-1 #### QUIN Simon ([id number]) [facility] ([facility]) [address] [place] [address]888 Creatinine [Mass/Vol] 0.51 mg/dL Normal 0.50-1.05 [facility] Comment on above: Performed By: #### 3 084-1 #### QUIN Simon ([id number]) [facility] ([facility]) [address] [place] [address] GFR/1.73 sq M.predicted MDRD (S/P/Bld) [Vol rate/Area] mL/min/{1.73_m2} Normal >60 [facility] Comment on above: Result Comment: Calc ulations of estimated GFR are performed using the 2020 CKD-EPI Study Refit equation without the race variable for the IDMS-Traceable creatinine methods. https://jasn.asnjournals.org/content/early//ASN.556101 5418 Performed By: #### 3 084-1 #### QUIN Simon ([id number]) [facility] ([facility]) [address] [place] [address] 10658 Glucose [Mass/Vol] 104 mg/dL High 74-99 [facility] Comment on above: Performed By: #### 3 084-1 #### QUIN Simon ([id number]) [facility] ([facility]) [address] [place] [address] Potassium [Moles/Vol] 4.1 mmol/L Normal 3.5-5.3 [facility] Comment on above: Performed By: #### 3 084-1 #### QUIN Simon ([id number]) [facility] ([facility]) [address] [place] [address] Protein [Mass/Vol] 6.5 g/dL Normal 6.4-8.2 [facility] Comment on above: Performed By: #### 3 084-1 #### QUIN HARTMAN L ([id number]) [facility] ([facility]) [address] [place] [address]29 Sodium [Moles/Vol] 136 mmol/L Normal 136-145 [facility] Comment on above: Performed By: #### 3 084-1 #### QUIN Simon ([id number]) [facility] ([facility]) [address] [place] [address] Urea nitrogen [Mass/Vol] 9 mg/dL Normal 6-23 [facility] Comment on above: Performed By: #### 3 084-1 #### QUIN Simon ([id number]) [facility] ([facility]) [address] [place] [address] Gas panel (BldV)on 5 Anion gap 4 (BldV) [Moles/Vol] 11 mmol/L 10.0 - 25.0 mmol/L [facility] Base excess Calc (BldV) [Moles/Vol] -3.2000 mmol/L Low -2.0 - 3.0 mmol/L [facility] Calcium.ionized (BldV) [Moles/Vol] 1.24 mmol/L 1.10 - 1.33 mmol/L [facility] Chloride (BldV) [Moles/Vol] 106 mmol/L 98 - 107 mmol/L [facility] CO2 (BldV) [Partial pressure] 30 mm[Hg] Low [facility] Glucose [Mass/Vol] 110 mg/dL High 74 - 99 mg/dL [facility] HCO3 (Bld) [Moles/Vol] 19.9 mmol/L Low 22.0 - 26.0 mmol/L [facility] Hematocrit Est (Bld) [Volume fraction] 44 % 36.0 - 46.0 % [facility] Hemoglobin (Bld) [Mass/Vol] 14.8 g/dL 12.0 - 16.0 g/dL [facility] Inhaled oxygen concentration 21 % [facility] Interpretation and review of laboratory results Abnormal [facility] Lactate (BldV) [Moles/Vol] 1 mmol/L 0.4 - 2.0 mmol/L [facility] Oxygen (BldV) [Partial pressure] 71 mm[Hg] High [facility] Oxygen saturation in Venous blood 96 % High 45 - 75 % [facility] Oxyhemoglobin (BldV) [Mass fraction] 93.3 % High 45.0 - 75.0 % [facility] pH (BldV) 7.43 [pH] 7.33 - 7.43 pH [facility] Potassium (BldV) [Moles/Vol] 3.8 mmol/L 3.5 - 5.3 mmol/L [facility] Sodium (BldV) [Moles/Vol] 133 mmol/L Low 136 - 145 mmol/L [facility] Anion gap 4 (BldV) [Moles/Vol] 11.0 mmol/L Normal 10.0-25.0 [facility] Comment on above: Performed By: #### 4 548-4 #### QUIN Simon ([id number]) [facility] ([facility]) [address] [place] [address] 47742 Base excess Calc (BldV) [Moles/Vol] -3.2000 mmol/L Low -2.0-3.0 [facility] Comment on above: Performed By: #### 4 548-4 #### QUIN Simon ([id number]) [facility] ([facility]) [address] [place] [address] 65352 Calcium.ionized (BldV) [Moles/Vol] 1.24 mmol/L Normal 1.10-1.33 [facility] Comment on above: Performed By: #### 4 548-4 #### QUIN Simon ([id number]) [facility] ([facility]) [address] [place] [address] 14116 Chloride (BldV) [Moles/Vol] 106 mmol/L Normal 98-107 [facility] Comment on above: Performed By: #### 4 548-4 #### QUIN Simon ([id number]) [facility] ([facility]) [address] [place] [address] 05181 CO2 (BldV) [Partial pressure] 30 mm Hg Low 41-51 [facility] Comment on above: Performed By: #### 4 548-4 #### QUIN Simon ([id number]) [facility] ([facility]) [address] [place] [address] 02208 Glucose [Mass/Vol] 110 mg/dL High 74-99 [facility] Comment on above: Performed By: #### 4 548-4 #### QUIN Simon ([id number]) [facility] ([facility]) [address] [place] [address] 88004 HCO3 (Bld) [Moles/Vol] 19.9 mmol/L Low 22.0-26.0 [facility] Comment on above: Performed By: #### 4 548-4 #### QUIN Simon ([id number]) [facility] ([facility]) [address] [place] [address] 41752 Hematocrit Est (Bld) [Volume fraction] 44.0 % Normal 36.0-46.0 [facility] Comment on above: Performed By: #### 4 548-4 #### QUIN Simon ([id number]) [facility] ([facility]) [address] [place] [address] 39631 Hemoglobin (Bld) [Mass/Vol] 14.8 g/dL Normal 12.0-16.0 [facility] Comment on above: Performed By: #### 4 548-4 #### QUIN Simon ([id number]) [facility] ([facility]) [address] [place] [address] 46084 Inhaled oxygen concentration 21 % Normal [facility] Comment on above: Performed By: #### 4 548-4 #### QUIN Simon ([id number]) [facility] ([facility]) [address] [place] [address] 86194 Lactate (BldV) [Moles/Vol] 1.0 mmol/L Normal 0.4-2.0 [facility] Comment on above: Performed By: #### 4 548-4 #### QUIN HARTMAN L ([id number]) [facility] ([facility]) [address] [place] [address] 55873 Oxygen (BldV) [Partial pressure] 71 mm Hg High 35-45 [facility] Comment on above: Performed By: #### 4 548-4 #### QUIN Simon ([id number]) [facility] ([facility]) [address] [place] [address] 33944 Oxygen saturation in Venous blood 96 % High 45-75 [facility] Comment on above: Performed By: #### 4 548-4 #### QUIN Simon ([id number]) [facility] ([facility]) [address] [place] [address] 78468 Oxyhemoglobin (BldV) [Mass fraction] 93.3 % High 45.0-75.0 [facility] [facility] Comment on above: Performed By: #### 4 548-4 #### QUIN Simon ([id number]) [facility] ([facility]) [address] [place] [address] 18513 pH (BldV) 7.43 [pH] Normal 7.33-7.43 [facility] Comment on above: Performed By: #### 4 548-4 #### QUIN Simon ([id number]) [facility] ([facility]) [address] [place] [address] 53894 Potassium (BldV) [Moles/Vol] 3.8 mmol/L Normal 3.5-5.3 [facility] Comment on above: Performed By: #### 4 548-4 #### QUIN Simon ([id number]) [facility] ([facility]) [address] [place] [address] 53595 Sodium (BldV) [Moles/Vol] 133 mmol/L Low 136-145 [facility] Comment on above: Performed By: #### 4 548-4 #### QUIN Simon ([id number]) [facility] ([facility]) [address] [place] [address] 18710 Glucose Test strip manual (B ld) [Mass/Vol]on 02-08-2025 Glucose [Mass/Vol] 117 mg/dL High 74 - 99 mg/dL [facility] Interpretation and review of laboratory results Abnormal [facility] Glucose [Mass/Vol] 117 mg/dL High 74-99 [facility] Comment on above: Performed By: #### 3 084-1 #### QUIN Simon ([id number]) [facility] ([facility]) [address] [place] [address] Glucose [Mass/Vol] 140 mg/dL High 74 - 99 mg/dL [facility] Interpretation and review of laboratory results Abnormal [facility] Glucose [Mass/Vol] 140 mg/dL High 74-99 [facility] Comment on above: Performed By: #### 4 548-4 #### QUIN Simon ([id number]) [facility] ([facility]) [address] [place], [place] [address] Hepatitis B virus surface Ag on 02-08-2025 HBV surface Ag IA Ql Non-Reactive Normal Nonreactive U [facility] Comment on above: Result Comment: Biot in interference may cause falsely decreased results. Patients taking a Biotin dose of up to 5 mg/day should refrain from taking Biotin for 24 hours before sample collection. Providers may contact their local laboratory for further information. Performed By: #### 3 5255-9 #### QUIN Simon ([id number]) [facility] ([facility]) [address] [place] [address] Influenza virus A and B and SARS-CoV-2 (COVID-19) identified JYOTI+probe Nom (Resp)on 02-08-2025 FLUAV RNA JYOTI+probe Ql (Resp) Not detected Not Detected [facility] FLUBV RNA JYOTI+probe Ql (Resp) Not detected Not Detected [facility] Interpretation and review of laboratory results Normal [facility] SARS-CoV-2 (COVID-19) RNA JYOTI+probe Ql (Resp) Not detected Not Detected [facility] This assay is an FDA-cleared, in vitro diagnostic nucleic acid amplification test for the qualitative detection and differentiation of SARS CoV-2/ Influenza A/B from nasopharyngeal specimens collected from individuals with signs and symptoms of respiratory tract infections, and has been validated for use at [facility]. Negative results do not preclude COVID-19/ Influenza A/B infections and should not be used as the sole basis for diagnosis, treatment, or other management decisions. Testing for SARS CoV-2 is recommended only for patients who meet current clinical and/or epidemiological criteria defined by federal, state, or local public health directives. [facility] FLUAV RNA JYOTI+probe Ql (Resp) Not detected Normal Not Detected [facility] Comment on above: Order Comment: This assay is an FDA-cleared, in vitro diagnostic nucleic acid amplification test for the qualitative detection and differentiation of SARS CoV-2/ Influenza A/B from nasopharyngeal specimens collected from individuals with signs and symptoms of respiratory tract infections, and has been validated for use at [facility]. Negative results do not preclude COVID-19/ Influenza A/B infections and should not be used as the sole basis for diagnosis, treatment, or other management decisions. Testing for SARS CoV-2 is recommended only for patients who meet current clinical and/or epidemiological criteria defined by federal, state, or local public health directives. Performed By: #### 3 084-1 #### QUIN Simon ([id number]) [facility] ([facility]) [address] [place] [address] FLUBV RNA JYOTI+probe Ql (Resp) Not detected Normal Not Detected [facility] Comment on above: Order Comment: This assay is an FDA-cleared, in vitro diagnostic nucleic acid amplification test for the qualitative detection and differentiation of SARS CoV-2/ Influenza A/B from nasopharyngeal specimens collected from individuals with signs and symptoms of respiratory tract infections, and has been validated for use at [facility]. Negative results do not preclude COVID-19/ Influenza A/B infections and should not be used as the sole basis for diagnosis, treatment, or other management decisions. Testing for SARS CoV-2 is recommended only for patients who meet current clinical and/or epidemiological criteria defined by federal, state, or local public health directives. Performed By: #### 3 084-1 #### QUIN Simon ([id number]) [facility] ([facility]) [address] [place] [address] SARS-CoV-2 (COVID-19) RNA JYOTI+probe Ql (Resp) Not detected Normal Not Detected [facility] Comment on above: Order Comment: This assay is an FDA-cleared, in vitro diagnostic nucleic acid amplification test for the qualitative detection and differentiation of SARS CoV-2/ Influenza A/B from nasopharyngeal specimens collected from individuals with signs and symptoms of respiratory tract infections, and has been validated for use at [facility]. Negative results do not preclude COVID-19/ Influenza A/B infections and should not be used as the sole basis for diagnosis, treatment, or other management decisions. Testing for SARS CoV-2 is recommended only for patients who meet current clinical and/or epidemiological criteria defined by federal, state, or local public health directives. Performed By: #### 3 084-1 #### QUIN Simon ([id number]) [facility] ([facility]) [address] [place] [address] 18397 Lactate Dehydrogenaseon 040 LDH Lactate to pyruvate reaction [Catalytic activity/Vol] 185 U/L 84 - 246 U/L [facility] Lactate dehydrogenaseon 040 LDH Lactate to pyruvate reaction [Catalytic activity/Vol] 185 U/L Normal 84-246 [facility] Comment on above: Performed By: #### 3 084-1 #### QUIN Simon ([id number]) [facility] ([facility]) [address] [place] [address] 47972 Lipaseon 02-08-2025 Lipase [Catalytic activity/Vol] 13 U/L 9 - 82 U/L [facility] Lipase [Catalytic activity/V ol]on 02-08-2025 Interpretation and review of laboratory results Normal [facility] Venipuncture immedia tely after or during the administration of Metamizole may lead to falsely low results. Testing should be performed immediately prior to Metamizole dosing. [facility] No Panel Informationon 02-08 Interpretation and review of laboratory results Normal [facility] Proteinon 02-08-2025 Protein Qn (U) 33 mg/dL High 5-24 [facility] Comment on above: Performed By: #### 3 084-1 #### QUIN Simon ([id number]) [facility] ([facility]) [address] [place] [address] 46992 Protein Qn (U)on 02-08-2025 Creatinine (U) [Mass/Vol] 190.1 mg/dL 20.0 - 320.0 mg/dL [facility] Interpretation and review of laboratory results Abnormal [facility] Protein/Creatinine (U) [Mass ratio] 0.17 mg/g [facility] Creatinine (U) [Mass/Vol] 190.1 mg/dL Normal 20.0-320.0 [facility] Comment on above: Performed By: #### 3 084-1 #### QUIN Simon ([id number]) [facility] ([facility]) [address] [place] [address] 03807 Protein/Creatinine (U) [Mass ratio] 0.17 mg/mg Creat Normal 0.00-0.17 [facility] Comment on above: Performed By: #### 3 084-1 #### QUIN Simon ([id number]) [facility] ([facility]) [address] [place] [address] 09397 Protein, Urine Randomon 04-0 Protein Qn (U) 33 mg/dL High 5 - 24 mg/dL [facility] Streptococcus.beta-hemolytic on 02-08-2025 Streptococcus.beta-he molytic Org specific cx Ql (Genital specimen) Test: Group B Streptococcus (GBS) Screen, Culture Specimen Source: Vaginal/Rectal Specimen Type: Swab Specimen Date: 02/08/20252351 Result Date: 02/24/2025848 Result Status: Edited Result - FINAL Abnormal: Yes Resulting Lab: [facility] [address] [place] [address]1174 CULTURE Isolated: Streptococcus agalactiae (Group B Streptococcus) (Abnormal) Streptococcus agalactiae (Group B Streptococcus) is universally susceptible to beta-lactam antibiotics and vancomycin. Routine susceptibility testing not performed. For penicillin allergic patients, please contact the laboratory within 5 days of collection at to request susceptibility testing. Abnormal [facility] Comment on above: Performed By: #### 1 4804-9 #### QUIN Simon ([id number]) [facility] ([facility]) [address] [place] [address] 43576 Treponema pallidum Ab.IgG+Ig Mon 02-08-2025 T. pallidum IgG+IgM IA Ql (S) Non-Reactive Normal Nonreactive [facility] Comment on above: Result Comment: No s ignificant level of Treponema pallidum antibody detected. Repeat testing in 2 to 4 weeks may be considered if early infection or incubating syphilis infection is suspected. Performed By: #### 2 4323-8 #### QUIN Simon ([id number]) [facility] ([facility]) [address] [place], [place] [address] Triacylglycerol lipaseon Lipase [Catalytic activity/Vol] 13 U/L Normal 9-82 [facility] Comment on above: Order Comment: Venip uncture immediately after or during the administration of Metamizole may lead to falsely low results. Testing should be performed immediately prior to Metamizole dosing. Performed By: #### 3 084-1 #### QUIN Simon ([id number]) [facility] ([facility]) [address] [place] [address] 29441 Urateon 02-08-2025 Urate [Mass/Vol] 3.8 mg/dL Normal 2.3-6.7 [facility] Comment on above: Result Comment: Jessica puncture immediately after or during the administration of Metamizole may lead to falsely low results. Testing should be performed immediately prior to Metamizole dosing. Performed By: #### 3 084-1 #### QUIN Simon ([id number]) [facility] ([facility]) [address] [place] [address] 52757 Urate [Mass/Vol]on Interpretation and review of laboratory results Normal [facility] Uric Acidon 02-08-2025 Urate [Mass/Vol] 3.8 mg/dL 2.3 - 6.7 mg/dL [facility] Comment on above: Venipuncture immedia tely after or during the administration of Metamizole may lead to falsely low results. Testing should be performed immediately prior to Metamizole dosing. Glucose Test strip manual (B ld) [Mass/Vol]on 02-05-2025 Glucose [Mass/Vol] 175 mg/dL High 74-99 [facility] Comment on above: Performed By: #### 4 548-4 #### QUIN Simon ([id number]) [facility] ([facility]) [id number] [place] [address] OB FOLLOW UP TRANSABDOMIN AL APPROACHon 02-05-2025 OB FOLLOW UP TRANSABDOMINAL APPROACH Interpreted by: Carline Pollack Indication ======== Growth for Class 3 Obesity (BMI > 40). AMA Multigravida. Gestational Hypertension no Proteinuria, Diabetes Mellitus, Gestational- on Insulin History ====== General History Height 163 cm Height (ft) 5 ft Height (in) 4 in Previous Outcomes 15 Para 5 Children born living ?37w 1 Pregnancies delivered at term (T) 1 Pregnancies delivered (P) 4 Abortions (A) 9 Living children (L) 5 Children born living <37w 4 Miscarriages 9 Other: Vaginal Delivery Maternal Assessment Height 163 cm Height (ft) 5 ft Height (in) 4 in Weight 129 kg Weight (lb) 285 lb Weight gain 0 kg Weight gain (lb) 0 lb BMI 48.92 kg/m??? Physical Exam Initial weight (lb) 285 lb ========= Schilling . Number of fetuses: 1 Dating ====== Cycle: LMP date not known GA by prior assessment 31 w + 3 d VA by prior assessment: 04/06/2025 Ultrasound examination on: 02/05/2025 GA by U/S based upon: AC, BPD, Femur, HC GA by U/S 34 w + 1 d VA by U/S: 03/18/2025 Assigned: based on stated VA, selected on 12/24/2024 Assigned GA 31 w + 3 d Assigned VA: 04/06/2025 Growth Overview Exam date GA BPD (mm) HC (mm) AC (mm) FL (mm) HL (mm) EFW (g) 12/24/2024 25w 2d 67.5 93% 246.6 79% 218.9 74% 46.3 39% 43.1 45% 891 74% 01/15/2025 28w 3d 78.4 99% 283.5 91% 264.2 93% 57.4 81% 1588 96% 02/05/2025 31w 3d 87 >99% 306.9 85% 315.1 >99% 61.1 44% 2395 99% Impression ========= Follow up for A2DM, gHTN, AMA, CLass 3 Obesity. -Increased interval growth: EFW is 2395 g or 99% -The AC is >99% -The amniotic fluid: normal amount -No malformations by limited survey -[facility] 06/12 Thank you for allowing us to participate in your patient's care Follow-up ======== Twice weekly testing scheduled. General Evaluation Cardiac activity present. FHR 159 bpm. movements: visualized. Presentation: cephalic Placenta: Placental site: posterior Umbilical cord: Cord vessels: 3 vessel cord Amniotic fluid: Amount of AF: normal amount. MVP 6.6 cm. SERENA 17.4 cm. Q1 6.6 cm, Q2 4.7 cm, Q3 5.1 cm, Q4 1.0 cm Biometry Standard BPD 87.0 mm 35w 1d >99% Hadlock OFD 106.9 mm 89% INTERGROWTH-21st HC 306.9 mm 34w 1d 85% Hadlock AC 315.1 mm 35w 3d >99% Hadlock Femur 61.1 mm 31w 5d 44% Hadlock HC / AC 0.97 EFW 2,395 g 34w 1d 99% Hadlock EFW (lb) 5 lb EFW (oz) 4 oz EFW by: Hadlock ([id number]) Extended Finisher Cold Rolling 2.7 mm Head / Face / Neck Cephalic index 0.81 69% Nicolaides Extremities / Bony Struc FL / BPD 0.70 FL / HC 0.20 FL / AC 0.19 Other Structures FHR 159 bpm Anatomy Cranium: Normal Lateral ventricles: Normal Midline falx: Normal Cavum septi pellucidi: Normal Cerebellum: suboptimal Head / Neck Rt lateral ventricle: Normal Lt lateral ventricle: Normal Thalami: Normal 4-chamber view: suboptimal Heart / Thorax Cardiac axis: Normal Diaphragm: suboptimal Stomach: Normal Kidneys: Normal Bladder: visualized Abdomen Stomach: correct situs Rt kidney: Normal Lt kidney: Normal Large bowel: Normal sex: female Wants to know sex: yes Biophysical Profile 2: breathing movements 2: Gross body movements 2: tone 2: Amniotic fluid volume 06/12 Biophysical profile score Method ====== Transabdominal ultrasound examination. View: Suboptimal view: limited by late gestational age [facility] US for pregnancyon Interpreted by: Carline Pollack Indication ======== Growth for Class 3 Obesity (BMI > 40). AMA Multigravida. Gestational Hypertension no Proteinuria, Diabetes Mellitus, Gestational- on Insulin History ====== General History Height 163 cm Height (ft) 5 ft Height (in) 4 in Previous Outcomes 15 Para 5 Children born living ?37w 1 Pregnancies delivered at term (T) 1 Pregnancies delivered (P) 4 Abortions (A) 9 Living children (L) 5 Children born living <37w 4 Miscarriages 9 Other: Vaginal Delivery Maternal Assessment Height 163 cm Height (ft) 5 ft Height (in) 4 in Weight 129 kg Weight (lb) 285 lb Weight gain 0 kg Weight gain (lb) 0 lb BMI 48.92 kg/m Physical Exam Initial weight (lb) 285 lb ========= Schilling . Number of fetuses: 1 Dating ====== Cycle: LMP date not known GA by prior assessment 31 w + 3 d VA by prior assessment: 04/06/2025 Ultrasound examination on: 02/05/2025 GA by U/S based upon: AC, BPD, Femur, HC GA by U/S 34 w + 1 d VA by U/S: 03/18/2025 Assigned: based on stated VA, selected on 12/24/2024 Assigned GA 31 w + 3 d Assigned VA: 04/06/2025 Growth Overview Exam date GA BPD (mm) HC (mm) AC (mm) FL (mm) HL (mm) EFW (g) 12/24/2024 25w 2d 67.5 93% 246.6 79% 218.9 74% 46.3 39% 43.1 45% 891 74% 01/15/2025 28w 3d 78.4 99% 283.5 91% 264.2 93% 57.4 81% 1588 96% 02/05/2025 31w 3d 87 >99% 306.9 85% 315.1 >99% 61.1 44% 2395 99% Impression ========= Follow up for A2DM, gHTN, AMA, CLass 3 Obesity. -Increased interval growth: EFW is 2395 g or 99% -The AC is >99% -The amniotic fluid: normal amount -No malformations by limited survey -[facility] 06/12 Thank you for allowing us to participate in your patient's care Follow-up ======== Twice weekly testing scheduled. General Evaluation Cardiac activity present. FHR 159 bpm. movements: visualized. Presentation: cephalic Placenta: Placental site: posterior Umbilical cord: Cord vessels: 3 vessel cord Amniotic fluid: Amount of AF: normal amount. MVP 6.6 cm. SERENA 17.4 cm. Q1 6.6 cm, Q2 4.7 cm, Q3 5.1 cm, Q4 1.0 cm Biometry Standard BPD 87.0 mm 35w 1d >99% Hadlock OFD 106.9 mm 89% INTERGROWTH-21st HC 306.9 mm 34w 1d 85% Hadlock AC 315.1 mm 35w 3d >99% Hadlock Femur 61.1 mm 31w 5d 44% Hadlock HC / AC 0.97 EFW 2,395 g 34w 1d 99% Hadlock EFW (lb) 5 lb EFW (oz) 4 oz EFW by: Hadlock ([id number]) Extended Finisher Cold Rolling 2.7 mm Head / Face / Neck Cephalic index 0.81 69% Nicolaides Extremities / Bony Struc FL / BPD 0.70 FL / HC 0.20 FL / AC 0.19 Other Structures FHR 159 bpm Anatomy Cranium: Normal Lateral ventricles: Normal Midline falx: Normal Cavum septi pellucidi: Normal Cerebellum: suboptimal Head / Neck Rt lateral ventricle: Normal Lt lateral ventricle: Normal Thalami: Normal 4-chamber view: suboptimal Heart / Thorax Cardiac axis: Normal Diaphragm: suboptimal Stomach: Normal Kidneys: Normal Bladder: visualized Abdomen Stomach: correct situs Rt kidney: Normal Lt kidney: Normal Large bowel: Normal sex: female Wants to know sex: yes Biophysical Profile 2: breathing movements 2: Gross body movements 2: tone 2: Amniotic fluid volume 06/12 Biophysical profile score Method ====== Transabdominal ultrasound examination. View: Suboptimal view: limited by late gestational age [facility] Carline Pollack MD - 02/05/2025 Interpreted by: Carline Pollack Indication ======== Growth for Class 3 Obesity (BMI > 40). AMA Multigravida. Gestational Hypertension no Proteinuria, Diabetes Mellitus, Gestational- on Insulin History ====== General History Dyqvof095 cm Height (ft)5 ft Height (in)4 in Previous Outcomes [id number] Para5 Children born living ?37w1 Pregnancies delivered at term (T)1 Pregnancies delivered (P)4 Abortions (A)9 Living children (L)5 Children born living <37w4 Miscarriages9 Other:Vaginal Delivery Maternal Assessment Shrmdi823 cm Height (ft)5 ft Height (in)4 in Uksqkb526 kg Weight (lb)285 lb Weight gain0 kg Weight gain (lb)0 lb BMI48.92 kg/m Physical Exam Initial weight (lb)285 lb ========= Schilling . Number of fetuses: 1 Dating ====== Cycle:LMP date not known GA by prior [id number] w + 3 d VA by prior assessment:04/06/2025 Ultrasound examination on:02/05/2025 GA by U/S based upon:AC, BPD, Femur, HC GA by U/S34 w + 1 d VA by U/S:03/18/2025 Assigned:based on stated VA, selected on 12/24/2024 Assigned GA31 w + 3 d Assigned VA:04/06/2025 Growth Overview Exam date GA BPD (mm) HC (mm) AC (mm) FL (mm) HL (mm) EFW (g) 12/24/2024 25w 2d 67.5 93% 246.6 79% 218.9 74% 46.3 39% 43.1 45% 891 74% 01/15/2025 28w 3d 78.4 99% 283.5 91% 264.2 93% 57.4 81% 1588 96% 02/05/2025 31w 3d 87 >99% 306.9 85% 315.1 >99% 61.1 44% 2395 99% Impression ========= Follow up for A2DM, gHTN, AMA, CLass 3 Obesity. -Increased interval growth: EFW is 2395 g or 99% -The AC is >99% -The amniotic fluid: normal amount -No malformations by limited survey -[facility] 06/12 Thank you for allowing us to participate in your patient's care Follow-up ======== Twice weekly testing scheduled. General Evaluation Cardiac activity present. FHR 159 bpm. movements: visualized. Presentation: cephalic Placenta: Placental site: posterior Umbilical cord: Cord vessels: 3 vessel cord Amniotic fluid: Amount of AF: normal amount. MVP 6.6 cm. SERENA 17.4 cm. Q1 6.6 cm, Q2 4.7 cm, Q3 5.1 cm, Q4 1.0 cm Biometry Standard BPD87.0 mm35w 1d >99% Hadlock OKT661.9 mm 89% INTERGROWTH-21st HC306.9 mm34w 1d 85% Hadlock AC315.1 mm35w 3d >99% Hadlock Femur61.1 mm31w 5d 44% Hadlock HC / AC0.97 EFW2,395 g34w 1d 99% Hadlock EFW (lb)5 lb EFW (oz)4 oz EFW by:Hadlock ([id number]) Extended Vp2.7 mm Head / Face / Neck Cephalic index0.81 69% Nicolaides Extremities / Bony Struc FL / BPD0.70 FL / HC0.20 FL / AC0.19 Other Structures [id number] bpm Anatomy Cranium:Normal Lateral ventricles:Normal Midline falx:Normal Cavum septi pellucidi:Normal Cerebellum:suboptimal Head / Neck Rt lateral ventricle:Normal Lt lateral ventricle:Normal Thalami:Normal 4-chamber view:suboptimal Heart / Thorax Cardiac axis:Normal Diaphragm:suboptimal Stomach:Normal Kidneys:Normal Bladder:visualized Abdomen Stomach:correct situs Rt kidney:Normal Lt kidney:Normal Large bowel:Normal sex:female Wants to know sex:yes Biophysical Profile 2: breathing movements 2: Gross body movements 2: tone 2: Amniotic fluid volume 8/8 Biophysical profile score Method ====== Transabdominal ultrasound examination. View: Suboptimal view: limited by late gestational age [facility] Work Phone: [facility] Work Phone: Radiology Study observation (narrative) [facility] Work Phone: CBC panel Auto (Bld)on 01-29 Erythrocyte distribution width (RBC) [Ratio] 13.4 % Normal 11.5-14.5 [facility] Comment on above: Performed By: #### 5 8410-2 #### BREEZY LOCO ([id number]) [facility] ([facility]) [address] [place] [address] Hematocrit (Bld) [Volume fraction] 37.0 % Normal 36.0-46.0 [facility] Comment on above: Performed By: #### 5 8410-2 #### BREEZY LOCO ([id number]) [facility] ([facility]) [address] [place] [address] Hemoglobin (Bld) [Mass/Vol] 11.8 g/dL Low 12.0-16.0 [facility] Comment on above: Performed By: #### 5 8410-2 #### BREEZY LOCO ([id number]) [facility] ([facility]) [address] [place] [address] MCH (RBC) [Entitic mass] 28.2 pg Normal 26.0-34.0 [facility] Comment on above: Performed By: #### 5 8410-2 #### BREEZY LOCO ([id number]) [facility] ([facility]) [address] [place] [address] MCHC (RBC) [Mass/Vol] 31.9 g/dL Low 32.0-36.0 [facility] Comment on above: Performed By: #### 5 8410-2 #### BREEZY LOCO ([id number]) [facility] ([facility]) [address] [place] [address] MCV (RBC) [Entitic vol] 88 fL Normal 80-100 [facility] Comment on above: Performed By: #### 5 8410-2 #### BREEZY LOCO ([id number]) [facility] ([facility]) [address] [place] [address] Nucleated RBC/100 WBC (Bld) [Ratio] 0.0 /100 WBCs Normal 0.0-0.0 [facility] Comment on above: Performed By: #### 5 8410-2 #### BREEZY LOCO ([id number]) [facility] ([facility]) [address] [place] [address] Platelets (Bld) [#/Vol] 261 x10*3/uL Normal 150-450 [facility] Comment on above: Performed By: #### 5 8410-2 #### BREEZY LOCO ([id number]) [facility] ([facility]) [address] [place] [address] RBC (Bld) [#/Vol] 4.19 x10*6/uL Normal 4.00-5.20 [facility] Comment on above: Performed By: #### 5 8410-2 #### BREEZY LOCO ([id number]) [facility] ([facility]) [address] [place] [address] WBC (Bld) [#/Vol] 15.6 x10*3/uL High 4.4-11.3 [facility] Comment on above: Performed By: #### 5 8410-2 #### BREEZY LOCO ([id number]) [facility] ([facility]) [address] [place] [address] Comprehensive metabolic 2000 panelon 01-29-2025 Albumin BCP dye [Mass/Vol] 3.4 g/dL Normal 3.4-5.0 [facility] [place] Comment on above: Performed By: #### 2 4323-8 #### BREEZY LOCO ([id number]) [facility] ([facility]) [address] [place] [address] ALP [Catalytic activity/Vol] 73 U/L Normal 33-110 [facility] [place] Comment on above: Performed By: #### 2 4323-8 #### BREEZY LOCO ([id number]) [facility]) [address] [place] [address] ALT With P-5'-P [Catalytic activity/Vol] 6 U/L Low 7-45 [facility] [place] Comment on above: Result Comment: Nguyen ents treated with Sulfasalazine may generate falsely decreased results for ALT. Performed By: #### 2 4323-8 #### BREEZY LOCO ([id number]) [facility]) [address] [place] [address] Anion gap [Moles/Vol] 15 mmol/L Normal 10-20 [facility] Comment on above: Performed By: #### 2 4323-8 #### BREEZY LOCO ([id number]) [facility]) [address] [place] [address] AST With P-5'-P [Catalytic activity/Vol] 9 U/L Normal 9-39 [facility] [place] Comment on above: Performed By: #### 2 4323-8 #### BREEZY LOCO ([id number]) [facility]) [address] [place] [address] Bilirubin [Mass/Vol] 0.5 mg/dL Normal 0.0-1.2 [facility] Comment on above: Performed By: #### 2 4323-8 #### BREEZY LOCO ([id number]) [facility]) [address] [place] [address] Calcium [Mass/Vol] 8.9 mg/dL Normal 8.6-10.3 [facility] Comment on above: Performed By: #### 2 4323-8 #### BREEZY LOCO ([id number]) [facility]) [address] [place] [address] Chloride [Moles/Vol] 105 mmol/L Normal 98-107 [facility] Comment on above: Performed By: #### 2 4323-8 #### BREEZY LOCO ([id number]) [facility]) [address] [place] [address] CO2 [Moles/Vol] 21 mmol/L Normal 21-32 [facility] Comment on above: Performed By: #### 2 4323-8 #### BREEZY LOCO ([id number]) [facility]) [address] [place] [address] Creatinine [Mass/Vol] 0.55 mg/dL Normal 0.50-1.05 [facility] Comment on above: Performed By: #### 2 4323-8 #### BREEZY LOCO ([id number]) [facility]) [address] [place] [address] GFR/1.73 sq M.predicted MDRD (S/P/Bld) [Vol rate/Area] mL/min/{1.73_m2} Normal >60 [facility] [place] Comment on above: Result Comment: Calc ulations of estimated GFR are performed using the 2020 CKD-EPI Study Refit equation without the race variable for the IDMS-Traceable creatinine methods. https://jasn.asnjournals.org/content//ASN.950370 4493 Performed By: #### 2 4323-8 #### BREEZY LOCO ([id number]) [facility]) [address] [place] [address] Glucose [Mass/Vol] 93 mg/dL Normal 74-99 [facility] Comment on above: Performed By: #### 2 4323-8 #### BREEZY LOCO ([id number]) [facility] ([facility]) [address] [place] [address] Potassium [Moles/Vol] 3.6 mmol/L Normal 3.5-5.3 [facility] Comment on above: Performed By: #### 2 4323-8 #### BREEZY LOCO ([id number]) [facility] ([facility]) [address] [place] [address] Protein [Mass/Vol] 6.4 g/dL Normal 6.4-8.2 [facility] Comment on above: Performed By: #### 2 4323-8 #### BREEZY LOCO ([id number]) [facility] ([facility]) [address] [place] [address] Sodium [Moles/Vol] 137 mmol/L Normal 136-145 [facility] Comment on above: Performed By: #### 2 4323-8 #### BREEZY LOCO ([id number]) [facility] ([facility]) [address] [place] [address] Urea nitrogen [Mass/Vol] 6 mg/dL Normal 6-23 [facility] [place] Comment on above: Performed By: #### 2 4323-8 #### BREEZY LOCO ([id number]) [facility] ([facility]) [address] [place] [address] Glucose Test strip manual (B ld) [Mass/Vol]on 01-29-2025 Glucose [Mass/Vol] 124 mg/dL High 74-99 [facility] Comment on above: Performed By: #### 4 548-4 #### QUIN Simon ([id number]) [facility] ([facility]) [address] [place] [address] MR/BMS.BPon 03-27-2025 MR/BMS.BP Normal [facility] US OB LIMITED 1+ FETUSESon 0 01-29-2025 US OB LIMITED 1+ FETUSES Interpreted by: Judit Jeffery Indication ======== BPP for Class 3 Obesity (BMI > 40). Gestational Hypertension no Proteinuria, Diabetes Mellitus, Gestational- on Insulin History ====== General History Height 163 cm Height (ft) 5 ft Height (in) 4 in Previous Outcomes 15 Para 5 Children born living ?37w 1 Pregnancies delivered at term (T) 1 Pregnancies delivered (P) 4 Abortions (A) 9 Living children (L) 5 Children born living <37w 4 Miscarriages 9 Other: Vaginal Delivery Maternal Assessment Height 163 cm Height (ft) 5 ft Height (in) 4 in Weight 129 kg Weight (lb) 285 lb Weight gain 0 kg Weight gain (lb) 0 lb BMI 48.92 kg/m??? Physical Exam Initial weight (lb) 285 lb ========= Schilling . Number of fetuses: 1 Dating ====== Cycle: LMP date not known GA by prior assessment 30 w + 3 d VA by prior assessment: 04/06/2025 Assigned: based on stated VA, selected on 12/24/2024 Assigned GA 30 w + 3 d Assigned VA: 04/06/2025 Growth Overview Exam date GA BPD (mm) HC (mm) AC (mm) FL (mm) HL (mm) EFW (g) 12/24/2024 25w 2d 67.5 93% 246.6 79% 218.9 74% 46.3 39% 43.1 45% 891 74% 01/15/2025 28w 3d 78.4 99% 283.5 91% 264.2 93% 57.4 81% 1588 96% Impression ========= -The BPP is 8 out of 8 -The AFV is normal (21.1 cm) -Cephalic Reassuring testing today. Thank you for allowing us to participate in your patient's care. Follow-up ======== Twice weekly testing scheduled. General Evaluation Cardiac activity present. FHR 157 bpm. movements: visualized. Presentation: cephalic Placenta: Placental site: posterior, No Previa Seen Umbilical cord: Cord vessels: 3 vessel cord Biophysical Profile 2: breathing movements 2: Gross body movements 2: tone 2: Amniotic fluid volume 06/12 Biophysical profile score Amniotic Fluid Assessment Amount of AF: normal amount MVP 6.1 cm. SERENA 21.1 cm. Q1 5.9 cm, Q2 6.1 cm, Q3 3.5 cm, Q4 5.6 cm Maternal Structures Uterus / Cervix Uterus: Visualized Cervix: Not examined Ovaries / Tubes / Adnexa Rt ovary: Not visualized Lt ovary: Not visualized Method ====== Transabdominal ultrasound examination. View: Sufficient Normal [facility] MR/BMS.BPon 01-27-2025 MR/BMS.BP Normal [facility] PROTEIN, TOTAL W/CREAT, RAND OM URINEon 01-23-2025 Creatinine (U) [Mass/Vol] 61 mg/dL Normal 20-275 [facility] Comment on above: Performed By: #### 1 632, 52988 #### [facility] [address], [address] [place], [place] [phone] Safety Tech: Salvador Swanson MD Protein (U) [Mass/Vol] 15 mg/dL Normal 5-24 [facility] Comment on above: Performed By: #### 1 202, 10135 #### [facility] [address], [address] [place] [phone] Safety Tech: Salvador Swanson MD PROTEIN/CREATININE RATIO 246 mg/g creat High 24-184 [facility] Comment on above: Performed By: #### 1 654, 24359 #### [facility] [address], [address] [place] [phone] Safety Tech: Salvador Swanson MD PROTEIN/CREATININE RATIO 0.246 mg/mg creat High 0.024-0.184 [facility] Comment on above: Performed By: #### 1 002, 05041 #### [facility] [address] [facility], [address] [place] [address] Safety Tech: Salvador Swanson MD CBC panel Auto (Bld)on 01-22 Erythrocyte distribution width (RBC) [Ratio] 13.4 % Normal 11.5-14.5 [facility] [place] Comment on above: Performed By: #### 5 8410-2 #### BREEZY LOCO ([id number]) [facility] ([facility]) [address] [place] [address] Hematocrit (Bld) [Volume fraction] 36.7 % Normal 36.0-46.0 [facility] [place] Comment on above: Performed By: #### 5 8410-2 #### BREEZY LOCO ([id number]) [facility] ([facility]) [address] [place] [address] Hemoglobin (Bld) [Mass/Vol] 11.8 g/dL Low 12.0-16.0 [facility] [place] Comment on above: Performed By: #### 5 8410-2 #### BREEZY LOCO ([id number]) [facility] ([facility]) [address] [place] [address] MCH (RBC) [Entitic mass] 28.4 pg Normal 26.0-34.0 [facility] [place] Comment on above: Performed By: #### 5 8410-2 #### BREEZY LOCO ([id number]) [facility] ([facility]) [address] [place] [address] MCHC (RBC) [Mass/Vol] 32.2 g/dL Normal 32.0-36.0 [facility] Comment on above: Performed By: #### 5 8410-2 #### BREEZY LOCO ([id number]) [facility] ([facility]) [address] [place] [address] MCV (RBC) [Entitic vol] 88 fL Normal 80-100 [facility] [place] Comment on above: Performed By: #### 5 8410-2 #### BREEZY LOCO ([id number]) [facility] ([facility]) [address] [place] [address] Nucleated RBC/100 WBC (Bld) [Ratio] 0.0 /100 WBCs Normal 0.0-0.0 [facility] [place] Comment on above: Performed By: #### 5 8410-2 #### BREEZY LOCO ([id number]) [facility] ([facility]) [address] [place] [address] Platelets (Bld) [#/Vol] 250 x10*3/uL Normal 150-450 [facility] [place] Comment on above: Performed By: #### 5 8410-2 #### BREEZY LOCO ([id number]) [facility] ([facility]) [address] [place] [address] RBC (Bld) [#/Vol] 4.15 x10*6/uL Normal 4.00-5.20 [facility] Comment on above: Performed By: #### 5 8410-2 #### BREEZY LOCO ([id number]) [facility] ([facility]) [address] [place] [address] WBC (Bld) [#/Vol] 14.4 x10*3/uL High 4.4-11.3 [facility] Comment on above: Performed By: #### 5 8410-2 #### BREEZY LOCO ([id number]) [facility] ([facility]) [address] [place] [address] Comprehensive metabolic 2000 panelon 01-22-2025 Albumin BCP dye [Mass/Vol] 3.6 g/dL Normal 3.4-5.0 [facility] [place] Comment on above: Performed By: #### 2 4323-8 #### BREEZY LOCO ([id number]) [facility] ([facility]) [address] [place] [address] ALP [Catalytic activity/Vol] 79 U/L Normal 33-110 [facility] [place] Comment on above: Performed By: #### 2 4323-8 #### BREEZY LOCO ([id number]) [facility] ([facility]) [address] [place] [address] ALT With P-5'-P [Catalytic activity/Vol] 7 U/L Normal 7-45 [facility] [place] Comment on above: Result Comment: Nguyen ents treated with Sulfasalazine may generate falsely decreased results for ALT. Performed By: #### 2 4323-8 #### BREEZY LOCO ([id number]) [facility] ([facility]) [address] [place] [address] Anion gap [Moles/Vol] 14 mmol/L Normal 10-20 [facility] Comment on above: Performed By: #### 2 4323-8 #### BREEZY LOCO ([id number]) [facility] ([facility]) [address] [place] [address] AST With P-5'-P [Catalytic activity/Vol] 15 U/L Normal 9-39 [facility] [place] Comment on above: Performed By: #### 2 4323-8 #### BREEZY LOCO ([id number]) [facility] ([facility]) [address] [place] [address] Bilirubin [Mass/Vol] 0.5 mg/dL Normal 0.0-1.2 [facility] Comment on above: Performed By: #### 2 4323-8 #### BREEZY LOCO ([id number]) [facility] ([facility]) [address] [place] [address] Calcium [Mass/Vol] 9.0 mg/dL Normal 8.6-10.3 [facility] Comment on above: Performed By: #### 2 4323-8 #### BREEZY LOCO ([id number]) [facility] ([facility]) [address] [place] [address] Chloride [Moles/Vol] 105 mmol/L Normal 98-107 [facility] Comment on above: Performed By: #### 2 4323-8 #### BREEZY LOCO ([id number]) [facility] ([facility]) [address] [place] [address] CO2 [Moles/Vol] 18 mmol/L Low 21-32 [facility] Comment on above: Performed By: #### 2 4323-8 #### BREEZY LOCO ([id number]) [facility]) [address] [place] [address] Creatinine [Mass/Vol] 0.47 mg/dL Low 0.50-1.05 [facility] Comment on above: Performed By: #### 2 4323-8 #### BREEZY LOCO ([id number]) [facility]) [address] [place] [address] GFR/1.73 sq M.predicted MDRD (S/P/Bld) [Vol rate/Area] mL/min/{1.73_m2} Normal >60 [facility] [place] Comment on above: Result Comment: Calc ulations of estimated GFR are performed using the 2020 CKD-EPI Study Refit equation without the race variable for the IDMS-Traceable creatinine methods. https://jasn.asnjournals.org/content/early//ASN.800674 5072 Performed By: #### 2 4323-8 #### BREEZY LOCO ([id number]) [facility] ([facility]) [address] [place] [address] Glucose [Mass/Vol] 122 mg/dL High 74-99 [facility] Comment on above: Performed By: #### 2 4323-8 #### BREEZY LOCO ([id number]) [facility]) [address] [place] [address] Potassium [Moles/Vol] 3.8 mmol/L Normal 3.5-5.3 [facility] Comment on above: Performed By: #### 2 4323-8 #### BREEZY LOCO ([id number]) [facility] ([facility]) [address] [place] [address] Protein [Mass/Vol] 6.7 g/dL Normal 6.4-8.2 [facility] Comment on above: Performed By: #### 2 4323-8 #### BREEZY LOCO ([id number]) [facility] ([facility]) [address] [place] [address] Sodium [Moles/Vol] 133 mmol/L Low 136-145 [facility] Comment on above: Performed By: #### 2 4323-8 #### BREEZY LOCO ([id number]) [facility] ([facility]) [address] [place] [address] Urea nitrogen [Mass/Vol] 6 mg/dL Normal 6-23 [facility] [place] Comment on above: Performed By: #### 2 4323-8 #### BREEZY LOCO ([id number]) [facility] ([facility]) [address] [place] [address] Glucose Test strip manual (B ld) [Mass/Vol]on 01-22-2025 Glucose [Mass/Vol] 178 mg/dL High 74 - 99 mg/dL [facility] Interpretation and review of laboratory results Abnormal [facility] Glucose [Mass/Vol] 178 mg/dL High 74-99 [facility] Comment on above: Performed By: #### 4 548-4 #### QUIN Simon ([id number]) [facility] ([facility]) [address] [place] [address] US OB LIMITED 1+ FETUSESon 0 01-22-2025 US OB LIMITED 1+ FETUSES Interpreted by: Judit Jeffery Indication ======== BPP for Class 3 Obesity (BMI > 40). Gestational Hypertension no Proteinuria, Diabetes Mellitus, Gestational- on Insulin. Polyhydramnios History ====== General History Height 163 cm Height (ft) 5 ft Height (in) 4 in Previous Outcomes 15 Para 5 Children born living ?37w 1 Pregnancies delivered at term (T) 1 Pregnancies delivered (P) 4 Abortions (A) 9 Living children (L) 5 Children born living <37w 4 Miscarriages 9 Other: Vaginal Delivery Maternal Assessment Height 163 cm Height (ft) 5 ft Height (in) 4 in Weight 129 kg Weight (lb) 285 lb Weight gain 0 kg Weight gain (lb) 0 lb BMI 48.92 kg/m??? Physical Exam Initial weight (lb) 285 lb ========= Schilling . Number of fetuses: 1 Dating ====== Cycle: LMP date not known GA by prior assessment 29 w + 3 d VA by prior assessment: 04/06/2025 Assigned: based on stated VA, selected on 12/24/2024 Assigned GA 29 w + 3 d Assigned VA: 04/06/2025 Growth Overview Exam date GA BPD (mm) HC (mm) AC (mm) FL (mm) HL (mm) EFW (g) 12/24/2024 25w 2d 67.5 93% 246.6 79% 218.9 74% 46.3 39% 43.1 45% 891 74% 01/15/2025 28w 3d 78.4 99% 283.5 91% 264.2 93% 57.4 81% 1588 96% Impression ========= -The BPP is 8 out of 8 -The AFV measures 27.6 cm (mild polyhydramnios - stable) Reassuring testing today. Thank you for allowing us to participate in your patient's care. Follow-up ======== Twice weekly testing scheduled. General Evaluation Cardiac activity present. FHR 140 bpm. movements: visualized. Presentation: breech Placenta: Placental site: posterior Umbilical cord: Cord vessels: 3 vessel cord Biophysical Profile 2: breathing movements 2: Gross body movements 2: tone 2: Amniotic fluid volume 8/8 Biophysical profile score Amniotic Fluid Assessment Amount of AF: normal amount MVP 7.6 cm. SERENA 27.6 cm. Q1 7.6 cm, Q2 7.4 cm, Q3 5.3 cm, Q4 7.3 cm Maternal Structures Uterus / Cervix Uterus: Visualized Cervix: Not visualized Ovaries / Tubes / Adnexa Rt ovary: Not visualized Lt ovary: Normal Method ====== Transabdominal ultrasound examination. View: Suboptimal view: limited by maternal body habitus [facility] US for pregnancyon Interpreted by: Judit Patino Indication ======== BPP for Class 3 Obesity (BMI > 40). Gestational Hypertension no Proteinuria, Diabetes Mellitus, Gestational- on Insulin. Polyhydramnios History ====== General History Height 163 cm Height (ft) 5 ft Height (in) 4 in Previous Outcomes 15 Para 5 Children born living ?37w 1 Pregnancies delivered at term (T) 1 Pregnancies delivered (P) 4 Abortions (A) 9 Living children (L) 5 Children born living <37w 4 Miscarriages 9 Other: Vaginal Delivery Maternal Assessment Height 163 cm Height (ft) 5 ft Height (in) 4 in Weight 129 kg Weight (lb) 285 lb Weight gain 0 kg Weight gain (lb) 0 lb BMI 48.92 kg/m Physical Exam Initial weight (lb) 285 lb ========= Schilling . Number of fetuses: 1 Dating ====== Cycle: LMP date not known GA by prior assessment 29 w + 3 d VA by prior assessment: 04/06/2025 Assigned: based on stated VA, selected on 12/24/2024 Assigned GA 29 w + 3 d Assigned VA: 04/06/2025 Growth Overview Exam date GA BPD (mm) HC (mm) AC (mm) FL (mm) HL (mm) EFW (g) 12/24/2024 25w 2d 67.5 93% 246.6 79% 218.9 74% 46.3 39% 43.1 45% 891 74% 01/15/2025 28w 3d 78.4 99% 283.5 91% 264.2 93% 57.4 81% 1588 96% Impression ========= -The BPP is 8 out of 8 -The AFV measures 27.6 cm (mild polyhydramnios - stable) Reassuring testing today. Thank you for allowing us to participate in your patient's care. Follow-up ======== Twice weekly testing scheduled. General Evaluation Cardiac activity present. FHR 140 bpm. movements: visualized. Presentation: breech Placenta: Placental site: posterior Umbilical cord: Cord vessels: 3 vessel cord Biophysical Profile 2: breathing movements 2: Gross body movements 2: tone 2: Amniotic fluid volume 8 Biophysical profile score Amniotic Fluid Assessment Amount of AF: normal amount MVP 7.6 cm. SERENA 27.6 cm. Q1 7.6 cm, Q2 7.4 cm, Q3 5.3 cm, Q4 7.3 cm Maternal Structures Uterus / Cervix Uterus: Visualized Cervix: Not visualized Ovaries / Tubes / Adnexa Rt ovary: Not visualized Lt ovary: Normal Method ====== Transabdominal ultrasound examination. View: Suboptimal view: limited by maternal body habitus [facility] Judit Jeffery M D - 01/22/2025 Interpreted by: Judit Jeffery Indication ======== BPP for Class 3 Obesity (BMI > 40). Gestational Hypertension no Proteinuria, Diabetes Mellitus, Gestational- on Insulin. Polyhydramnios History ====== General History Vnisob968 cm Height (ft)5 ft Height (in)4 in Previous Outcomes [id number] Para5 Children born living ?37w1 Pregnancies delivered at term (T)1 Pregnancies delivered (P)4 Abortions (A)9 Living children (L)5 Children born living <37w4 Miscarriages9 Other:Vaginal Delivery Maternal Assessment Ydssox873 cm Height (ft)5 ft Height (in)4 in Tiupwd026 kg Weight (lb)285 lb Weight gain0 kg Weight gain (lb)0 lb BMI48.92 kg/m Physical Exam Initial weight (lb)285 lb ========= Schilling . Number of fetuses: 1 Dating ====== Cycle:LMP date not known GA by prior w + 3 d VA by prior assessment:04/06/2025 Assigned:based on stated VA, selected on 12/24/2024 Assigned GA29 w + 3 d Assigned VA:04/06/2025 Growth Overview Exam date GA BPD (mm) HC (mm) AC (mm) FL (mm) HL (mm) EFW (g) 12/24/2024 25w 2d 67.5 93% 246.6 79% 218.9 74% 46.3 39% 43.1 45% 891 74% 01/15/2025 28w 3d 78.4 99% 283.5 91% 264.2 93% 57.4 81% 1588 96% Impression ========= -The BPP is 8 out of 8 -The AFV measures 27.6 cm (mild polyhydramnios - stable) Reassuring testing today. Thank you for allowing us to participate in your patient's care. Follow-up ======== Twice weekly testing scheduled. General Evaluation Cardiac activity present. FHR 140 bpm. movements: visualized. Presentation: breech Placenta: Placental site: posterior Umbilical cord: Cord vessels: 3 vessel cord Biophysical Profile 2: breathing movements 2: Gross body movements 2: tone 2: Amniotic fluid volume 8/8 Biophysical profile score Amniotic Fluid Assessment Amount of AF: normal amount MVP 7.6 cm. SERENA 27.6 cm. Q1 7.6 cm, Q2 7.4 cm, Q3 5.3 cm, Q4 7.3 cm Maternal Structures Uterus / Cervix Uterus:Visualized Cervix:Not visualized Ovaries / Tubes / Adnexa Rt ovary:Not visualized Lt ovary:Normal Method ====== Transabdominal ultrasound examination. View: Suboptimal view: limited by maternal body habitus [facility] Work Phone: Radiology Study observation (narrative) [facility] Work Phone: US for pregnancyOrdered By: Judit Jeffery on 01-22-2025 [facility] Work Phone: CBC (H/H, RBC, INDICES, WBC, PLT)on 01-16-2025 Erythrocyte distribution width (RBC) [Ratio] 12.6 % Normal 11.0-15.0 [facility] Comment on above: Performed By: #### 1 109, 89572 #### [facility] [place] [address] Safety Tech: Salvador Swanson MD Hematocrit (Bld) [Volume fraction] 35.3 % Normal 35.0-45.0 [facility] Comment on above: Performed By: #### 1 397, 70612 #### [facility] [place] [address] Safety Tech: Salvador Swanson MD Hemoglobin (Bld) [Mass/Vol] 11.8 g/dL Normal 11.7-15.5 [facility] Comment on above: Performed By: #### 1 144, 17261 #### [facility] [place] [address] Safety Tech: Salvador Swanson MD MCH (RBC) [Entitic mass] 29.4 pg Normal 27.0-33.0 [facility] Comment on above: Performed By: #### 1 , 98527 #### [facility] [place] [address] Safety Tech: Salvador Swanson MD MCHC (RBC) [Mass/Vol] 33.4 g/dL Normal 32.0-36.[address] [facility] Comment on above: Result Comment: For adults, a slight decrease in the calculated MCHC value (in the range of 30 to 32 g/dL) is most likely not clinically significant; however, it should be interpreted with caution in correlation with other red cell parameters and the patient's clinical condition. Performed By: #### 1 749, 93857 #### [facility] [place] [address] Safety Tech: Salvador Swanson MD MCV (RBC) [Entitic vol] 87.8 fL Normal 80.0-100.0 [facility] Comment on above: Performed By: #### 1 759, 05879 #### [facility] [place] [address] Safety Tech: Salvador Swanson MD Platelet mean volume (Bld) [Entitic vol] 10.4 fL Normal 7.5-12.5 [facility] Comment on above: Performed By: #### 1 759, 44240 #### [facility] [place] [address] Safety Tech: Salvador Swanson MD Platelets (Bld) [#/Vol] 238 10*3/uL Normal 140-400 [facility] Comment on above: Performed By: #### 1 809, 54631 #### [facility] [place] [address] Safety Tech: Salvador Swanson MD RBC (Bld) [#/Vol] 4.02 10*6/uL Normal 3.80-5.10 [facility] Comment on above: Performed By: #### 1 689, 95347 #### [facility] [place] [address] Safety Tech: Salvador Swanson MD WBC (Bld) [#/Vol] 13.7 10*3/uL High 3.8-10.8 [facility] Comment on above: Performed By: #### 1 759, 62453 #### [facility] [place] [address] Safety Tech: Salvador Swanson MD COMPREHENSIVE METABOLIC PANE L W/ANION GAPon 01-16-2025 Albumin [Mass/Vol] 3.4 g/dL Low 3.6-5.1 [facility] Comment on above: Performed By: #### 1 84, 93061 #### [facility] of [address], [address] [place] [address] Safety Tech: Salvador Swanson MD ALP [Catalytic activity/Vol] 64 U/L Normal 31-125 [facility] Comment on above: Performed By: #### 1 159, 69714 #### [facility] of [address], [address] [place] [address] Safety Tech: Salvador Swanson MD ALT [Catalytic activity/Vol] 5 U/L Low 6-29 [facility] Comment on above: Performed By: #### 1 379, 49503 #### [facility] of [place] [address] Safety Tech: Salvador Swanson MD AST [Catalytic activity/Vol] 9 U/L Low 10-30 [facility] Comment on above: Performed By: #### 1 619, 15295 #### [facility] of [place] [address] Safety Tech: Salvador Swanson MD Bilirubin [Mass/Vol] 0.4 mg/dL Normal 0.2-1.2 [facility] Comment on above: Performed By: #### 1 825, 30909 #### [facility] of [place] [address] Safety Tech: Salvador Swanson MD Calcium [Mass/Vol] 8.9 mg/dL Normal 8.6-10.2 [facility] Comment on above: Performed By: #### 1 339, 33078 #### [facility] of [place] [address] Safety Tech: Salvador Swanson MD Chloride [Moles/Vol] 104 mmol/L Normal 98-110 [facility] Comment on above: Performed By: #### 1 900, 13505 #### [facility] of [place] [address] Safety Tech: Salvador Swanson MD CO2 [Moles/Vol] 22 mmol/L Normal 20-32 [facility] Comment on above: Performed By: #### 1 899, 56244 #### [facility] [address], [address] [place] [address] Safety Tech: Salvador Swanson MD Creatinine [Mass/Vol] 0.62 mg/dL Normal 0.50-0.[address] [facility] Comment on above: Performed By: #### 1 759, 87701 #### [facility] [address], [address] [place] [address] Safety Tech: Salvador Swanson MD ELECTROLYTE BALANCE 12 mmol/L (calc) Normal 7-17 [facility] Comment on above: Performed By: #### 1 509, 80429 #### [facility] [place] [address] Safety Tech: Salvador Swanson MD GFR/1.73 sq M.predicted among non-blacks MDRD (S/P/Bld) [Vol rate/Area] 119 mL/min/{1.73_m2} Normal > OR = 60 [facility] Comment on above: Performed By: #### 1 00, 04783 #### [facility] [place] [address] Safety Tech: Salvador Swanson MD Glucose [Mass/Vol] 122 mg/dL High 65-99 [facility] Comment on above: Result Comment: Fasting reference interval For someone without known diabetes, a glucose value between 100 and 125 mg/dL is consistent with prediabetes and should be confirmed with a follow-up test. Performed By: #### 1 439, 98585 #### [facility] [address], [address] [place] [address] Safety Tech: Salvador Swanson MD Potassium [Moles/Vol] 3.6 mmol/L Normal 3.5-5.[address] [facility] Comment on above: Performed By: #### 1 352, 37570 #### [facility] [place] [address] Safety Tech: Salvador Swanson MD Protein [Mass/Vol] 6.3 g/dL Normal 6.1-8.1 [facility] Comment on above: Performed By: #### 1 759, 14621 #### [facility] [address], [address] [place] [address] Safety Tech: Salvador Swanson MD Sodium [Moles/Vol] 138 mmol/L Normal 135-146 [facility] Comment on above: Performed By: #### 1 759, 76770 #### [facility] [address], [address] [place] [address] Safety Tech: Salvador Swanson MD Urea nitrogen [Mass/Vol] 6 mg/dL Low 7-25 [facility] Comment on above: Performed By: #### 1 759, 03935 #### [facility] [address], [address] [place] [address] Safety Tech: Salvador Swanson MD Glucose Test strip manual (B ld) [Mass/Vol]on 01-15-2025 Glucose [Mass/Vol] 118 mg/dL High 74 - 99 mg/dL [facility] Interpretation and review of laboratory results Abnormal [facility] Glucose [Mass/Vol] 118 mg/dL High 74-99 [facility] Comment on above: Performed By: #### 4 548-4 #### QUIN Simon ([id number]) [facility] ([facility]) [address] [place] [address] US OB FOLLOW UP TRANSABDOMIN AL APPROACHon 01-15-2025 US OB FOLLOW UP TRANSABDOMINAL APPROACH Interpreted by: Jasmina Benítez Indication ======== Growth for Gestational Hypertension no Proteinuria. Class 3 Obesity (BMI > 40). Diabetes Mellitus, Gestational- on Insulin. History ====== General History Height 163 cm Height (ft) 5 ft Height (in) 4 in Previous Outcomes 15 Para 5 Children born living ?37w 1 Pregnancies delivered at term (T) 1 Pregnancies delivered (P) 4 Abortions (A) 9 Living children (L) 5 Children born living <37w 4 Miscarriages 9 Other: Vaginal Delivery Maternal Assessment Height 163 cm Height (ft) 5 ft Height (in) 4 in Weight 129 kg Weight (lb) 285 lb Weight gain 0 kg Weight gain (lb) 0 lb BMI 48.92 kg/m??? Physical Exam Initial weight (lb) 285 lb ========= Schilling . Number of fetuses: 1 Dating ====== Cycle: LMP date not known GA by prior assessment 28 w + 3 d VA by prior assessment: 04/06/2025 Ultrasound examination on: 01/15/2025 GA by U/S based upon: AC, BPD, Femur, HC GA by U/S 30 w + 6 d VA by U/S: 03/20/2025 Assigned: based on stated VA, selected on 12/24/2024 Assigned GA 28 w + 3 d Assigned VA: 04/06/2025 Growth Overview Exam date GA BPD (mm) HC (mm) AC (mm) FL (mm) HL (mm) EFW (g) 12/24/2024 25w 2d 67.5 93% 246.6 79% 218.9 74% 46.3 39% 43.1 45% 891 74% 01/15/2025 28w 3d 78.4 99% 283.5 91% 264.2 93% 57.4 81% 1588 96% Impression ========= The patient presents for a growth ultrasound and BPP. This is notable for gestational hypertension, GDMA2, and class III obesity. -Accelerated growth: 1588 g at the 96th percentile -Mild polyhydramnios is present with an SERENA of 24.2cm and MVP of 8.5cm. stomach and bowel pattern appear normal. -No malformations were identified on a limited survey -BPP score is 8/8 Often idiopathic, mild and moderate degrees of polyhydramnios may be associated with malformation of the bowel or brain, large for gestational age growth patterns, and maternal diabetes. There are no findings on this scan to suggest pathology. The risk for pathology increases with the degree of polyhydramnios. Continue twice weekly testing. Thank you for allowing us to participate in the care of your patient. General Evaluation Cardiac activity present. FHR 155 bpm. movements: visualized. Presentation: cephalic Placenta: Placental site: posterior Umbilical cord: Cord vessels: 3 vessel cord Amniotic fluid: Amount of AF: polyhydramnios, mild. MVP 8.5 cm. SERENA 24.2 cm. Q1 4.5 cm, Q2 8.5 cm, Q3 3.5 cm, Q4 7.6 cm Biometry Standard BPD 78.4 mm 31w 3d 99% Hadlock OFD 99.0 mm 94% INTERGROWTH-21st HC 283.5 mm 31w 1d 91% Hadlock AC 264.2 mm 30w 4d 93% Hadlock Femur 57.4 mm 30w 1d 81% Hadlock HC / AC 1.07 EFW 1,588 g 30w 1d 96% Hadlock EFW (lb) 3 lb EFW (oz) 8 oz EFW by: Hadlock ([id number]-FL) Extended Finisher Cold Rolling 8.8 mm Head / Face / Neck Cephalic index 0.79 54% Nicolaides Extremities / Bony Struc FL / BPD 0.73 FL / HC 0.20 FL / AC 0.22 Other Structures FHR 155 bpm Anatomy Cranium: Normal Lateral ventricles: Normal Midline falx: Normal Cavum septi pellucidi: suboptimal Cerebellum: suboptimal Head / Neck Rt lateral ventricle: Normal Lt lateral ventricle: Normal Thalami: Normal 4-chamber view: suboptimal Heart / Thorax Cardiac axis: Normal Diaphragm: Normal Stomach: Normal Kidneys: Normal Bladder: visualized Abdomen Stomach: correct situs Rt kidney: Normal Lt kidney: Normal Large bowel: Normal sex: female Wants to know sex: yes Biophysical Profile 2: breathing movements 2: Gross body movements 2: tone 2: Amniotic fluid volume 8 Biophysical profile score Maternal Structures Uterus / Cervix Uterus: Visualized Cervix: Not visualized Ovaries / Tubes / Adnexa Rt ovary: Not visualized Lt ovary: Not visualized Method ====== Transabdominal ultrasound examination. View: Suboptimal view: limited by maternal body habitus. Suboptimal view: limited by late gestational age [facility] US for pregnancyon Interpreted by: Jasmina Benítez Indication ======== Growth for Gestational Hypertension no Proteinuria. Class 3 Obesity (BMI > 40). Diabetes Mellitus, Gestational- on Insulin. History ====== General History Height 163 cm Height (ft) 5 ft Height (in) 4 in Previous Outcomes 15 Para 5 Children born living ?37w 1 Pregnancies delivered at term (T) 1 Pregnancies delivered (P) 4 Abortions (A) 9 Living children (L) 5 Children born living <37w 4 Miscarriages 9 Other: Vaginal Delivery Maternal Assessment Height 163 cm Height (ft) 5 ft Height (in) 4 in Weight 129 kg Weight (lb) 285 lb Weight gain 0 kg Weight gain (lb) 0 lb BMI 48.92 kg/m Physical Exam Initial weight (lb) 285 lb ========= Schilling . Number of fetuses: 1 Dating ====== Cycle: LMP date not known GA by prior assessment 28 w + 3 d VA by prior assessment: 04/06/2025 Ultrasound examination on: 01/15/2025 GA by U/S based upon: AC, BPD, Femur, HC GA by U/S 30 w + 6 d VA by U/S: 03/20/2025 Assigned: based on stated VA, selected on 12/24/2024 Assigned GA 28 w + 3 d Assigned VA: 04/06/2025 Growth Overview Exam date GA BPD (mm) HC (mm) AC (mm) FL (mm) HL (mm) EFW (g) 12/24/2024 25w 2d 67.5 93% 246.6 79% 218.9 74% 46.3 39% 43.1 45% 891 74% 01/15/2025 28w 3d 78.4 99% 283.5 91% 264.2 93% 57.4 81% 1588 96% Impression ========= The patient presents for a growth ultrasound and BPP. This is notable for gestational hypertension, GDMA2, and class III obesity. -Accelerated growth: 1588 g at the 96th percentile -Mild polyhydramnios is present with an SERENA of 24.2cm and MVP of 8.5cm. stomach and bowel pattern appear normal. -No malformations were identified on a limited survey -BPP score is 8/8 Often idiopathic, mild and moderate degrees of polyhydramnios may be associated with malformation of the bowel or brain, large for gestational age growth patterns, and maternal diabetes. There are no findings on this scan to suggest pathology. The risk for pathology increases with the degree of polyhydramnios. Continue twice weekly testing. Thank you for allowing us to participate in the care of your patient. General Evaluation Cardiac activity present. FHR 155 bpm. movements: visualized. Presentation: cephalic Placenta: Placental site: posterior Umbilical cord: Cord vessels: 3 vessel cord Amniotic fluid: Amount of AF: polyhydramnios, mild. MVP 8.5 cm. SERENA 24.2 cm. Q1 4.5 cm, Q2 8.5 cm, Q3 3.5 cm, Q4 7.6 cm Biometry Standard BPD 78.4 mm 31w 3d 99% Hadlock OFD 99.0 mm 94% INTERGROWTH-21st HC 283.5 mm 31w 1d 91% Hadlock AC 264.2 mm 30w 4d 93% Hadlock Femur 57.4 mm 30w 1d 81% Hadlock HC / AC 1.07 EFW 1,588 g 30w 1d 96% Hadlock EFW (lb) 3 lb EFW (oz) 8 oz EFW by: Hadlock (CPS-HY-UK-FL) Extended Finisher Cold Rolling 8.8 mm Head / Face / Neck Cephalic index 0.79 54% Nicolaides Extremities / Bony Struc FL / BPD 0.73 FL / HC 0.20 FL / AC 0.22 Other Structures FHR 155 bpm Anatomy Cranium: Normal Lateral ventricles: Normal Midline falx: Normal Cavum septi pellucidi: suboptimal Cerebellum: suboptimal Head / Neck Rt lateral ventricle: Normal Lt lateral ventricle: Normal Thalami: Normal 4-chamber view: suboptimal Heart / Thorax Cardiac axis: Normal Diaphragm: Normal Stomach: Normal Kidneys: Normal Bladder: visualized Abdomen Stomach: correct situs Rt kidney: Normal Lt kidney: Normal Large bowel: Normal sex: female Wants to know sex: yes Biophysical Profile 2: breathing movements 2: Gross body movements 2: tone 2: Amniotic fluid volume 06/12 Biophysical profile score Maternal Structures Uterus / Cervix Uterus: Visualized Cervix: Not visualized Ovaries / Tubes / Adnexa Rt ovary: Not visualized Lt ovary: Not visualized Method ====== Transabdominal ultrasound examination. View: Suboptimal view: limited by maternal body habitus. Suboptimal view: limited by late gestational age [facility] Jasmina Benítez MD - 01/15/2025 Interpreted by: Jasmina Benítez Indication ======== Growth for Gestational Hypertension no Proteinuria. Class 3 Obesity (BMI > 40). Diabetes Mellitus, Gestational- on Insulin. History ====== General History Moxjfi593 cm Height (ft)5 ft Height (in)4 in Previous Outcomes [id number] Para5 Children born living ?37w1 Pregnancies delivered at term (T)1 Pregnancies delivered (P)4 Abortions (A)9 Living children (L)5 Children born living <37w4 Miscarriages9 Other:Vaginal Delivery Maternal Assessment Tnrymk042 cm Height (ft)5 ft Height (in)4 in [id number] kg Weight (lb)285 lb Weight gain0 kg Weight gain (lb)0 lb BMI48.92 kg/m Physical Exam Initial weight (lb)285 lb ========= Schilling . Number of fetuses: 1 Dating ====== Cycle:LMP date not known GA by prior w + 3 d VA by prior assessment:04/06/2025 Ultrasound examination on:01/15/2025 GA by U/S based upon:AC, BPD, Femur, HC GA by U/S30 w + 6 d VA by U/S:03/20/2025 Assigned:based on stated VA, selected on 12/24/2024 Assigned GA28 w + 3 d Assigned VA:04/06/2025 Growth Overview Exam date GA BPD (mm) HC (mm) AC (mm) FL (mm) HL (mm) EFW (g) 12/24/2024 25w 2d 67.5 93% 246.6 79% 218.9 74% 46.3 39% 43.1 45% 891 74% 01/15/2025 28w 3d 78.4 99% 283.5 91% 264.2 93% 57.4 81% 1588 96% Impression ========= The patient presents for a growth ultrasound and BPP. This is notable for gestational hypertension, GDMA2, and class III obesity. -Accelerated growth: 1588 g at the 96th percentile -Mild polyhydramnios is present with an SERENA of 24.2cm and MVP of 8.5cm. stomach and bowel pattern appear normal. -No malformations were identified on a limited survey -BPP score is 8/8 Often idiopathic, mild and moderate degrees of polyhydramnios may be associated with malformation of the bowel or brain, large for gestational age growth patterns, and maternal diabetes. There are no findings on this scan to suggest pathology. The risk for pathology increases with the degree of polyhydramnios. Continue twice weekly testing. Thank you for allowing us to participate in the care of your patient. General Evaluation Cardiac activity present. FHR 155 bpm. movements: visualized. Presentation: cephalic Placenta: Placental site: posterior Umbilical cord: Cord vessels: 3 vessel cord Amniotic fluid: Amount of AF: polyhydramnios, mild. MVP 8.5 cm. SERENA 24.2 cm. Q1 4.5 cm, Q2 8.5 cm, Q3 3.5 cm, Q4 7.6 cm Biometry Standard BPD78.4 mm31w 3d 99% Hadlock OFD99.0 mm 94% INTERGROWTH-21st HC283.5 mm31w 1d 91% Hadlock AC264.2 mm30w 4d 93% Hadlock Femur57.4 mm30w 1d 81% Hadlock HC / AC1.07 EFW1,588 g30w 1d 96% Hadlock EFW (lb)3 lb EFW (oz)8 oz EFW by:Hadlock ([id number]-FL) Extended Vp8.8 mm Head / Face / Neck Cephalic index0.79 54% Nicolaides Extremities / Bony Struc FL / BPD0.73 FL / HC0.20 FL / AC0.22 Other Structures BDF206 bpm Anatomy Cranium:Normal Lateral ventricles:Normal Midline falx:Normal Cavum septi pellucidi:suboptimal Cerebellum:suboptimal Head / Neck Rt lateral ventricle:Normal Lt lateral ventricle:Normal Thalami:Normal 4-chamber view:suboptimal Heart / Thorax Cardiac axis:Normal Diaphragm:Normal Stomach:Normal Kidneys:Normal Bladder:visualized Abdomen Stomach:correct situs Rt kidney:Normal Lt kidney:Normal Large bowel:Normal sex:female Wants to know sex:yes Biophysical Profile 2: breathing movements 2: Gross body movements 2: tone 2: Amniotic fluid volume 06/12 Biophysical profile score Maternal Structures Uterus / Cervix Uterus:Visualized Cervix:Not visualized Ovaries / Tubes / Adnexa Rt ovary:Not visualized Lt ovary:Not visualized Method ====== Transabdominal ultrasound examination. View: Suboptimal view: limited by maternal body habitus. Suboptimal view: limited by late gestational age [facility] Work Phone: Radiology Study observation (narrative) [facility] Work Phone: US for pregnancyOrdered By: Jasmina Benítez on 01-15-2025 [facility] Work Phone: MR/BMS.BPon 01-13-2025 MR/BMS.BP Normal [facility] CBC panel Auto (Bld)on 01-08 Erythrocyte distribution width (RBC) [Ratio] 13.1 % 11.5 - 14.5 % [facility] Hematocrit (Bld) [Volume fraction] 36.8 % 36.0 - 46.0 % [facility] Hemoglobin (Bld) [Mass/Vol] 11.6 g/dL Low 12.0 - 16.0 g/dL [facility] Interpretation and review of laboratory results Abnormal [facility] MCH (RBC) [Entitic mass] 29.2 pg 26.0 - 34.0 pg [facility] MCHC (RBC) [Mass/Vol] 31.5 g/dL Low 32.0 - 36.0 g/dL [facility] MCV (RBC) [Entitic vol] 93 fL 80 - 100 fL [facility] Nucleated RBC/100 WBC (Bld) [Ratio] 0 % [facility] Platelets (Bld) [#/Vol] 232 10*3/uL [facility] RBC (Bld) [#/Vol] 3.97 10*6/uL Low [facility] WBC (Bld) [#/Vol] 15.6 10*3/uL High Unive [facility] Erythrocyte distribution width (RBC) [Ratio] 13.1 % Normal 11.5-14.5 [facility] Comment on above: Performed By: #### 5 8410-2 #### QUIN Simon ([id number]) [facility] ([facility]) [address] [place] [address] Hematocrit (Bld) [Volume fraction] 36.8 % Normal 36.0-46.0 [facility] Comment on above: Performed By: #### 5 8410-2 #### QUIN Simon ([id number]) [facility] ([facility]) [address] [place] [address]673 Hemoglobin (Bld) [Mass/Vol] 11.6 g/dL Low 12.0-16.0 [facility] Comment on above: Performed By: #### 5 8410-2 #### QUIN Simon ([id number]) [facility] ([facility]) [address] [place] [address] 64992 MCH (RBC) [Entitic mass] 29.2 pg Normal 26.0-34.0 [facility] Comment on above: Performed By: #### 5 8410-2 #### QUIN Simon ([id number]) [facility] ([facility]) [address] [place] [address] [place] [address] MCHC (RBC) [Mass/Vol] 31.5 g/dL Low 32.0-36.0 [facility] Comment on above: Performed By: #### 5 8410-2 #### QUIN Simon ([id number]) [facility] ([facility]) [address] [place] [address]69 MCV (RBC) [Entitic vol] 93 fL Normal 80-100 [facility] Comment on above: Performed By: #### 5 8410-2 #### QUIN Simon ([id number]) [facility] ([facility]) [id number] [place] [address] 26086 Nucleated RBC/100 WBC (Bld) [Ratio] 0.0 /100 WBCs Normal 0.0-0.0 [facility] Comment on above: Performed By: #### 5 8410-2 #### QUIN Simon ([id number]) [facility] ([facility]) [id number] [place] [address] 97436 Platelets (Bld) [#/Vol] 232 x10*3/uL Normal 150-450 [facility] Comment on above: Performed By: #### 5 8410-2 #### QUIN Simon ([id number]) [facility] ([facility]) [address] [place] [address] 92136 RBC (Bld) [#/Vol] 3.97 x10*6/uL Low 4.00-5.20 [facility] Comment on above: Performed By: #### 5 8410-2 #### QUIN Simon ([id number]) [facility] ([facility]) [id number] [place] [address] 77868 WBC (Bld) [#/Vol] 15.6 x10*3/uL High 4.4-11.3 [facility] Comment on above: Performed By: #### 5 8410-2 #### QUIN Simon ([id number]) [facility] ([facility]) [address] [place] [address] 32779 Comprehensive metabolic 2000 panelon 01-08-2025 Albumin BCP dye [Mass/Vol] 3.3 g/dL Low 3.4 - 5.0 g/dL [facility] ALP [Catalytic activity/Vol] 65 U/L 33 - 110 U/L [facility] ALT With P-5'-P [Catalytic activity/Vol] 6 U/L Low 7 - 45 U/L [facility] Comment on above: Patients treated wit h Sulfasalazine may generate falsely decreased results for ALT. Anion gap [Moles/Vol] 16 mmol/L 10 - 2 0 mmol/L [facility] AST With P-5'-P [Catalytic activity/Vol] 9 U/L 9 - 39 U/L [facility] Bilirubin [Mass/Vol] 0.5 mg/dL 0.0 - 1 .2 mg/dL [facility] Calcium [Mass/Vol] 8.8 mg/dL 8.6 - 10. 6 mg/dL [facility] Chloride [Moles/Vol] 106 mmol/L 98 - 10 7 mmol/L [facility] CO2 [Moles/Vol] 18 mmol/L Low 21 - 32 mmol/L [facility] Creatinine [Mass/Vol] 0.5 mg/dL 0.50 - 1.05 mg/dL [facility] eGFR - PINF [facility] Comment on above: Calculations of zoya mated GFR are performed using the 2020 CKD-EPI Study Refit equation without the race variable for the IDMS-Traceable creatinine methods. https://jasn.asnjournals.org/content//ASN.539415 7835 Glucose [Mass/Vol] 94 mg/dL 74 - 99 mg/dL [facility] Interpretation and review of laboratory results Abnormal [facility] Potassium [Moles/Vol] 4 mmol/L 3.5 - 5.3 mmol/L [facility] Protein [Mass/Vol] 6 g/dL Low 6.4 - 8.2 g/dL [facility] Sodium [Moles/Vol] 136 mmol/L 136 - 145 mmol/L [facility] Urea nitrogen [Mass/Vol] 7 mg/dL 6 - 23 mg/dL [facility] Albumin BCP dye [Mass/Vol] 3.3 g/dL Low 3.4-5.0 [facility] Comment on above: Performed By: #### 5 8410-2 #### QUIN Simon ([id number]) [facility] ([facility]) [address] [place] [address] ALP [Catalytic activity/Vol] 65 U/L Normal 33-110 [facility] Comment on above: Performed By: #### 5 8410-2 #### QUIN Simon ([id number]) [facility] ([facility]) [address] [place] [address] ALT With P-5'-P [Catalytic activity/Vol] 6 U/L Low 7-45 [facility] Comment on above: Result Comment: Nguyen ents treated with Sulfasalazine may generate falsely decreased results for ALT. Performed By: #### 5 8410-2 #### QUIN Simon ([id number]) [facility] ([facility]) [id number] [place] [address] Anion gap [Moles/Vol] 16 mmol/L Normal 10-20 [facility] Comment on above: Performed By: #### 5 8410-2 #### QUIN Simon ([id number]) [facility] ([facility]) [address] [place] [address] AST With P-5'-P [Catalytic activity/Vol] 9 U/L Normal 9-39 [facility] Comment on above: Performed By: #### 5 8410-2 #### QUIN Simon ([id number]) [facility] ([facility]) [address] [place], [place] [address] Bilirubin [Mass/Vol] 0.5 mg/dL Normal 0.0-1.2 [facility] Comment on above: Performed By: #### 5 8410-2 #### QUIN Simon ([id number]) [facility] ([facility]) [address] [place] [address] Calcium [Mass/Vol] 8.8 mg/dL Normal 8.6-10.6 [facility] Comment on above: Performed By: #### 5 8410-2 #### QUIN Simon ([id number]) [facility] ([facility]) [address] [place] [address] Chloride [Moles/Vol] 106 mmol/L Normal 98-107 [facility] Comment on above: Performed By: #### 5 8410-2 #### QUIN Simon ([id number]) [facility] ([facility]) [address] [place] [address] CO2 [Moles/Vol] 18 mmol/L Low 21-32 [facility] Comment on above: Performed By: #### 5 8410-2 #### QUIN Simon ([id number]) [facility] ([facility]) [address] [place] [address] Creatinine [Mass/Vol] 0.50 mg/dL Normal 0.50-1.05 [facility] Comment on above: Performed By: #### 5 8410-2 #### QUIN Simon ([id number]) [facility] ([facility]) [address] [place] [address] GFR/1.73 sq M.predicted MDRD (S/P/Bld) [Vol rate/Area] mL/min/{1.73_m2} Normal >60 [facility] Comment on above: Result Comment: Calc ulations of estimated GFR are performed using the 2020 CKD-EPI Study Refit equation without the race variable for the IDMS-Traceable creatinine methods. https://jasn.asnjournals.org/content//ASN.250647 1014 Performed By: #### 5 8410-2 #### QUIN Simon ([id number]) [facility] ([facility]) [address] [place] [address] Glucose [Mass/Vol] 94 mg/dL Normal 74-99 [facility] Comment on above: Performed By: #### 5 8410-2 #### QUIN Simon ([id number]) [facility] [facility] [address] [place] [address] Potassium [Moles/Vol] 4.0 mmol/L Normal 3.5-5.3 [facility] Comment on above: Performed By: #### 5 8410-2 #### QUIN Simon ([id number]) [facility] ([facility]) [address] [place] [address] Protein [Mass/Vol] 6.0 g/dL Low 6.4-8.2 [facility] Comment on above: Performed By: #### 5 8410-2 #### QUIN Simon ([id number]) [facility] ([facility]) [id number] [place] [address] Sodium [Moles/Vol] 136 mmol/L Normal 136-145 [facility] Comment on above: Performed By: #### 5 8410-2 #### QUIN Simon ([id number]) [facility] ([facility]) [address] [place] [address] Urea nitrogen [Mass/Vol] 7 mg/dL Normal 6-23 [facility] Comment on above: Performed By: #### 5 8410-2 #### QUIN Simon ([id number]) [facility] ([facility]) [address] [place] [address] Glucose Test strip manual (B ld) [Mass/Vol]on 01-08-2025 Glucose [Mass/Vol] 91 mg/dL 74 - 99 mg/dL [facility] Interpretation and review of laboratory results Normal [facility] Glucose [Mass/Vol] 91 mg/dL Normal 74-99 [facility] Comment on above: Performed By: #### 5 8410-2 #### QUIN Simon ([id number]) [facility] ([facility]) [id number] [place] [address]74 Glucose [Mass/Vol] 172 mg/dL High 74-99 [facility] Comment on above: Performed By: #### 5 8410-2 #### QUIN Simon ([id number]) [facility] ([facility]) [address] [place] [address] 19105 Proteinon - Protein Qn (U) 11 mg/dL Normal 5-24 [facility] Comment on above: Performed By: #### 5 8410-2 #### QUIN Simon ([id number]) [facility] ([facility]) [address] [place] [address]606 Protein Qn (U)on 01-08-2025 Creatinine (U) [Mass/Vol] 46.3 mg/dL 20.0 - 320.0 mg/dL [facility] Interpretation and review of laboratory results Abnormal [facility] Protein/Creatinine (U) [Mass ratio] 0.24 mg/g High [facility] Creatinine (U) [Mass/Vol] 46.3 mg/dL Normal 20.0-320.0 [facility] Comment on above: Performed By: #### 5 8410-2 #### QUIN Simon ([id number]) [facility] ([facility]) [address] [place] [address] Protein/Creatinine (U) [Mass ratio] 0.24 mg/mg Creat High 0.00-0.17 [facility] Comment on above: Performed By: #### 5 8410-2 #### QUIN Simon ([id number]) [facility] ([facility]) [address] [place] [address] 48874 Protein, Urine Randomon -0 Protein Qn (U) 11 mg/dL 5 - 24 mg/dL [facility] US OB LIMITED 1+ FETUSESon 0 01-08-2025 US OB LIMITED 1+ FETUSES Interpreted by: Nevaeh Aquino Indication ======== BPP for Diabetes Mellitus, Gestational- on Insulin, AMA Multigravida, Class 3 Obesity (BMI > 40), Gestational Hypertension no Proteinuria History ====== General History Height 163 cm Height (ft) 5 ft Height (in) 4 in Previous Outcomes 15 Para 5 Children born living ?37w 1 Pregnancies delivered at term (T) 1 Pregnancies delivered (P) 4 Abortions (A) 9 Living children (L) 5 Children born living <37w 4 Miscarriages 9 Other: Vaginal Delivery Maternal Assessment Height 163 cm Height (ft) 5 ft Height (in) 4 in Weight 129 kg Weight (lb) 285 lb Weight gain 0 kg Weight gain (lb) 0 lb BMI 48.92 kg/m??? Physical Exam Initial weight (lb) 285 lb ========= Schilling . Number of fetuses: 1 Dating ====== Cycle: LMP date not known GA by prior assessment 27 w + 3 d VA by prior assessment: 04/06/2025 Assigned: based on stated VA, selected on 12/24/2024 Assigned GA 27 w + 3 d Assigned VA: 04/06/2025 Growth Overview Exam date GA BPD (mm) HC (mm) AC (mm) FL (mm) HL (mm) EFW (g) 12/24/2024 25w 2d 67.5 93% 246.6 79% 218.9 74% 46.3 39% 43.1 45% 891 74% Impression ========= BMI 48 with GHTN having 2 x weekly testing. Hx o PEC, anemia and PTB. -The BPP is 8 out of 8 -The AFV is normal Reassuring testing today. Thank you for allowing us to participate in your patient's care. General Evaluation Cardiac activity present. FHR 151 bpm. movements: visualized. Presentation: cephalic Placenta: Placental site: posterior Umbilical cord: Cord vessels: 3 vessel cord Biophysical Profile 2: breathing movements 2: Gross body movements 2: tone 2: Amniotic fluid volume 8/8 Biophysical profile score Amniotic Fluid Assessment Amount of AF: normal amount MVP 7.2 cm. SERENA 17.1 cm. Q1 7.2 cm, Q2 0.0 cm, Q3 5.8 cm, Q4 4.0 cm Maternal Structures Uterus / Cervix Uterus: Visualized Cervix: Not examined Ovaries / Tubes / Adnexa Rt ovary: Not visualized Lt ovary: Normal Method ====== Transabdominal ultrasound examination. View: Suboptimal view: limited by maternal body habitus Normal [facility] Urinalysis macro (dipstick) panel (U)on 01-08-2025 Appearance (Body fld) [facility] Work Phone: Bilirubin, UA Negative [facility] Work Phone: Blood, UA Negative [facility] Work Phone: Clarity, UA Clear [facility] Work Phone: Color, UA Yellow [facility] Work Phone: Glucose, UA Negative [facility] Work Phone: Ketones, UA Negative [facility] Work Phone: Leukocytes, UA TRACE [facility] Work Phone: Nitrite, UA Negative [facility] Work Phone: pH, UA 6 [facility] Work Phone: Protein, UA Negative [facility] Work Phone: Spec Grav, UA 1.015 [facility] Work Phone: Urobilinogen, UA 0.2 [facility] Work Phone: [facility] Work Phone: MR/BMS.BPon 01-06-2025 MR/BMS.BP Normal [facility] MR/BMS.BPon 01-02-2025 MR/BMS.BP Normal [facility] PROTEIN, TOTAL W/CREAT, RAND OM URINEon 01-02-2025 Creatinine (U) [Mass/Vol] 97 mg/dL Normal 20-275 [facility] Comment on above: Performed By: #### 1 715 #### [facility] of [address], [address] [place] [address] Safety Tech: Salvador Swanson MD Protein (U) [Mass/Vol] 27 mg/dL High 5-24 [facility] Comment on above: Performed By: #### 1 715 #### [facility] [address], [address] [place] [address] Safety Tech: Salvador Swanson MD PROTEIN/CREATININE RATIO 278 mg/g creat High 24-184 [facility] Comment on above: Performed By: #### 1 715 #### [facility] [address], [address] [place] [address] Safety Tech: Salvador Swanson MD PROTEIN/CREATININE RATIO 0.278 mg/mg creat High 0.024-0.184 [facility] Comment on above: Performed By: #### 1 715 #### [facility] [address], [address] [place] [address] Safety Tech: Salvador Swanson MD Glucose Test strip manual (B ld) [Mass/Vol]on 01-01-2025 Glucose [Mass/Vol] 206 mg/dL High 74 - 99 mg/dL [facility] Interpretation and review of laboratory results Abnormal [facility] Glucose [Mass/Vol] 206 mg/dL High 74-99 [facility] Comment on above: Performed By: #### 5 8410-2 #### QUIN Simon ([id number]) [facility] ([facility]) [address] [place] [address] US OB FOLLOW UP TRANSABDOMIN AL APPROACHon 01-01-2025 US OB FOLLOW UP TRANSABDOMINAL APPROACH Interpreted by: Carline Pollack Indication ======== Follow Up to Complete Anatomical Study Diabetes Mellitus, Gestational- on Insulin, AMA Multigravida, Class 3 Obesity (BMI > 40) History ====== General History Height 163 cm Height (ft) 5 ft Height (in) 4 in Previous Outcomes 15 Para 5 Children born living ?37w 1 Pregnancies delivered at term (T) 1 Pregnancies delivered (P) 4 Abortions (A) 9 Living children (L) 5 Children born living <37w 4 Miscarriages 9 Other: Vaginal Delivery Maternal Assessment Height 163 cm Height (ft) 5 ft Height (in) 4 in Weight 129 kg Weight (lb) 285 lb BMI 48.92 kg/m??? ========= Schilling . Number of fetuses: 1 Dating ====== Cycle: LMP date not known GA by prior assessment 26 w + 3 d VA by prior assessment: 04/06/2025 Assigned: based on stated VA, selected on 12/24/2024 Assigned GA 26 w + 3 d Assigned VA: 04/06/2025 Growth Overview Exam date GA BPD (mm) HC (mm) AC (mm) FL (mm) HL (mm) EFW (g) 12/24/2024 25w 2d 67.5 93% 246.6 79% 218.9 74% 46.3 39% 43.1 45% 891 74% Impression ========= The patient returns for completion of spine, ACI, views. notable for gHTN, A2DM, history of preeclampsia, prior delivery. - biometry not repeated due to the short scan interval -The anatomic survey was completed -No malformations were identified. -BPP 06/12 A normal sonogram cannot exclude all structural and functional problems. Thank you for allowing us to participate in the care of your patient Follow-up ======== A repeat evaluation has been scheduled in 4 weeks. General Evaluation Cardiac activity present. FHR 151 bpm. movements: visualized. Presentation: breech Placenta: Placental site: posterior Umbilical cord: Cord vessels: 3 vessel cord Amniotic fluid: Amount of AF: normal amount. MVP 6.9 cm. SERENA 20.9 cm. Q1 6.9 cm, Q2 3.8 cm, Q3 4.8 cm, Q4 5.4 cm Anatomy The following structures appear normal: Abdominal wall. Spine. Cervical spine. Thoracic spine. Lumbar spine. Sacral spine. sex: female Maternal Structures Uterus / Cervix Uterus: Visualized Cervix: Not visualized Ovaries / Tubes / Adnexa Rt ovary: Not visualized Lt ovary: Not visualized Method ====== Transabdominal ultrasound examination. View: Suboptimal view: limited by maternal body habitus [facility] US for pregnancyon Interpreted by: Carline Pollack Indication ======== Follow Up to Complete Anatomical Study Diabetes Mellitus, Gestational- on Insulin, AMA Multigravida, Class 3 Obesity (BMI > 40) History ====== General History Height 163 cm Height (ft) 5 ft Height (in) 4 in Previous Outcomes 15 Para 5 Children born living ?37w 1 Pregnancies delivered at term (T) 1 Pregnancies delivered (P) 4 Abortions (A) 9 Living children (L) 5 Children born living <37w 4 Miscarriages 9 Other: Vaginal Delivery Maternal Assessment Height 163 cm Height (ft) 5 ft Height (in) 4 in Weight 129 kg Weight (lb) 285 lb BMI 48.92 kg/m ========= Schilling . Number of fetuses: 1 Dating ====== Cycle: LMP date not known GA by prior assessment 26 w + 3 d VA by prior assessment: 04/06/2025 Assigned: based on stated VA, selected on 12/24/2024 Assigned GA 26 w + 3 d Assigned VA: 04/06/2025 Growth Overview Exam date GA BPD (mm) HC (mm) AC (mm) FL (mm) HL (mm) EFW (g) 12/24/2024 25w 2d 67.5 93% 246.6 79% 218.9 74% 46.3 39% 43.1 45% 891 74% Impression ========= The patient returns for completion of spine, ACI, views. notable for gHTN, A2DM, history of preeclampsia, prior delivery. - biometry not repeated due to the short scan interval -The anatomic survey was completed -No malformations were identified. -BPP 06/12 A normal sonogram cannot exclude all structural and functional problems. Thank you for allowing us to participate in the care of your patient Follow-up ======== A repeat evaluation has been scheduled in 4 weeks. General Evaluation Cardiac activity present. FHR 151 bpm. movements: visualized. Presentation: breech Placenta: Placental site: posterior Umbilical cord: Cord vessels: 3 vessel cord Amniotic fluid: Amount of AF: normal amount. MVP 6.9 cm. SERENA 20.9 cm. Q1 6.9 cm, Q2 3.8 cm, Q3 4.8 cm, Q4 5.4 cm Anatomy The following structures appear normal: Abdominal wall. Spine. Cervical spine. Thoracic spine. Lumbar spine. Sacral spine. sex: female Maternal Structures Uterus / Cervix Uterus: Visualized Cervix: Not visualized Ovaries / Tubes / Adnexa Rt ovary: Not visualized Lt ovary: Not visualized Method ====== Transabdominal ultrasound examination. View: Suboptimal view: limited by maternal body habitus [facility] Carline Pollack MD - 01/01/2025 Interpreted by: Carline Pollack Indication ======== Follow Up to Complete Anatomical Study Diabetes Mellitus, Gestational- on Insulin, AMA Multigravida, Class 3 Obesity (BMI > 40) History ====== General History Chxilx300 cm Height (ft)5 ft Height (in)4 in Previous Outcomes [id number] Para5 Children born living ?37w1 Pregnancies delivered at term (T)1 Pregnancies delivered (P)4 Abortions (A)9 Living children (L)5 Children born living <37w4 Miscarriages9 Other:Vaginal Delivery Maternal Assessment Cdclgf460 cm Height (ft)5 ft Height (in)4 in Fbgivl568 kg Weight (lb)285 lb BMI48.92 kg/m ========= Schilling . Number of fetuses: 1 Dating ====== Cycle:LMP date not known GA by prior [id number] w + 3 d VA by prior assessment:04/06/2025 Assigned:based on stated VA, selected on 12/24/2024 Assigned GA26 w + 3 d Assigned VA:04/06/2025 Growth Overview Exam date GA BPD (mm) HC (mm) AC (mm) FL (mm) HL (mm) EFW (g) 12/24/2024 25w 2d 67.5 93% 246.6 79% 218.9 74% 46.3 39% 43.1 45% 891 74% Impression ========= The patient returns for completion of spine, ACI, views. notable for gHTN, A2DM, history of preeclampsia, prior delivery. - biometry not repeated due to the short scan interval -The anatomic survey was completed -No malformations were identified. -BPP 06/12 A normal sonogram cannot exclude all structural and functional problems. Thank you for allowing us to participate in the care of your patient Follow-up ======== A repeat evaluation has been scheduled in 4 weeks. General Evaluation Cardiac activity present. FHR 151 bpm. movements: visualized. Presentation: breech Placenta: Placental site: posterior Umbilical cord: Cord vessels: 3 vessel cord Amniotic fluid: Amount of AF: normal amount. MVP 6.9 cm. SERENA 20.9 cm. Q1 6.9 cm, Q2 3.8 cm, Q3 4.8 cm, Q4 5.4 cm Anatomy The following structures appear normal: Abdominal wall. Spine. Cervical spine. Thoracic spine. Lumbar spine. Sacral spine. sex: female Maternal Structures Uterus / Cervix Uterus:Visualized Cervix:Not visualized Ovaries / Tubes / Adnexa Rt ovary:Not visualized Lt ovary:Not visualized Method ====== Transabdominal ultrasound examination. View: Suboptimal view: limited by maternal body habitus [facility] Work Phone: Radiology Study observation (narrative) [facility] Work Phone: US for pregnancyOrdered By: Carline Pollack on 01-01-2025 [facility] Work Phone: Glucose Test strip manual (B ld) [Mass/Vol]on 12-25-2024 Glucose [Mass/Vol] 166 mg/dL High 74 - 99 mg/dL [facility] Interpretation and review of laboratory results Abnormal [facility] Glucose [Mass/Vol] 166 mg/dL High 74-99 [facility] Comment on above: Performed By: #### 5 8410-2 #### QUIN Simon ([id number]) [facility] ([facility]) [address] [place] [address] Glucose [Mass/Vol] 148 mg/dL High 74 - 99 mg/dL [facility] Interpretation and review of laboratory results Abnormal [facility] Glucose [Mass/Vol] 148 mg/dL High 74-99 [facility] Comment on above: Performed By: #### 5 8410-2 #### QUIN Simon ([id number]) [facility] ([facility]) [address] [place] [address] Glucose [Mass/Vol] 159 mg/dL High 74 - 99 mg/dL [facility] Interpretation and review of laboratory results Abnormal [facility] Glucose [Mass/Vol] 159 mg/dL High 74-99 [facility] Comment on above: Performed By: #### 2 341-6 #### QUIN Simon ([id number]) [facility] ([facility]) [address] [place] [address]11 Blood type and Indirect anti body screen panel (Bld)on 12-24-2024 ABO group Nom (Bld) O [facility] Blood group antibody screen Ql Negative [facility] D Ag Ql (Bld) Positive [facility] Glucose Test strip manual (B ld) [Mass/Vol]on 12-24-2024 Glucose [Mass/Vol] 132 mg/dL High 74 - 99 mg/dL [facility] Interpretation and review of laboratory results Abnormal [facility] Glucose [Mass/Vol] 132 mg/dL High 74-99 [facility] Comment on above: Performed By: #### 2 341-6 #### QUIN Simon ([id number]) [facility] ([facility]) [address] [place] [address] 12689 Glucose [Mass/Vol] 160 mg/dL High 74 - 99 mg/dL [facility] Interpretation and review of laboratory results Abnormal [facility] Glucose [Mass/Vol] 160 mg/dL High 74-99 [facility] Comment on above: Performed By: #### 2 341-6 #### QUIN Simon ([id number]) [facility] ([facility]) [address] [place] [address] 69536 Glucose [Mass/Vol] 139 mg/dL High 74 - 99 mg/dL [facility] Interpretation and review of laboratory results Abnormal [facility] Glucose [Mass/Vol] 139 mg/dL High 74-99 [facility] Comment on above: Performed By: #### 2 341-6 #### QUIN Simon ([id number]) [facility] ([facility]) [address] [place] [address] Glucose [Mass/Vol] 153 mg/dL High 74 - 99 mg/dL [facility] Interpretation and review of laboratory results Abnormal [facility] Glucose [Mass/Vol] 153 mg/dL High 74-99 [facility] Comment on above: Performed By: #### 2 341-6 #### QUIN Simon ([id number]) [facility] ([facility]) [address] [place] [address] Glucose [Mass/Vol] 164 mg/dL High 74 - 99 mg/dL [facility] Interpretation and review of laboratory results Abnormal [facility] Glucose [Mass/Vol] 164 mg/dL High 74-99 [facility] Comment on above: Performed By: #### 2 341-6 #### QUIN Simon ([id number]) [facility] ([facility]) [address] [place] [address] US OB DETAIL ANATOMYon 12-24-2024 OB DETAIL ANATOMY Interpreted by: Earl [place] Indication ======== Third Trimester Scan for Inpatient, Mac 4, Diabetes Mellitus, Gestational- on Insulin, AMA Multigravida, Class 3 Obesity (BMI > 40) History ====== General History Height 163 cm Height (ft) 5 ft Height (in) 4 in Previous Outcomes 15 Para 5 Children born living ?37w 1 Pregnancies delivered at term (T) 1 Pregnancies delivered (P) 4 Abortions (A) 9 Living children (L) 5 Children born living <37w 4 Miscarriages 9 Other: Vaginal Delivery Maternal Assessment Height 163 cm Height (ft) 5 ft Height (in) 4 in Weight 129 kg Weight (lb) 285 lb BMI 48.92 kg/m??? ========= Schilling . Number of fetuses: 1 Dating ====== Cycle: LMP date not known GA by prior assessment 25 w + 2 d VA by prior assessment: 04/06/2025 Ultrasound examination on: 12/24/2024 GA by U/S based upon: AC, BPD, Femur, HC GA by U/S 26 w + 3 d VA by U/S: 03/29/2025 Assigned: based on stated VA, selected on 12/24/2024 Assigned GA 25 w + 2 d Assigned VA: 04/06/2025 Growth Overview Exam date GA BPD (mm) HC (mm) AC (mm) FL (mm) HL (mm) EFW (g) 12/24/2024 25w 2d 67.5 93% 246.6 79% 218.9 74% 46.3 39% 43.1 45% 891 74% Impression ========= Patient is inpatient for complicated by AMA, BMI > 40, hypertension and diabetes She she had prior ultrasounds, including dating and anatomic evaluations, at an outside facility A targeted anatomic survey was indicated - biometry is consistent with the stated gestational age -Detailed anatomic evaluation of the brain/ventricles, face, heart/outflow tracts and chest anatomy, abdominal organ specific anatomy, number/length/architectur e of limbs and detailed evaluation of the umbilical cord and placenta and other anatomy as clinically indicated was attempted. -No malformations were identified on this incomplete survey within limitations of sonographic evaluation at this gestational age and maternal acoustic properties and lie. -The adnexa and placenta appear within normal limits -Today's exam was incomplete due to and/or maternal factors. The SERENA and BPP are within normal limits General Evaluation Cardiac activity present. FHR 144 bpm. movements: visualized. Presentation: breech Placenta: Placental site: posterior Umbilical cord: Cord vessels: 3 vessel cord. Insertion site: Suboptimal Amniotic fluid: Amount of AF: normal amount. MVP 6.2 cm. SERENA 22.0 cm. Q1 6.2 cm, Q2 6.1 cm, Q3 4.1 cm, Q4 5.7 cm Biometry Standard BPD 67.5 mm 27w 1d 93% Hadlock OFD 86.1 mm 87% INTERGROWTH-21st HC 246.6 mm 26w 5d 79% Hadlock Cerebellum tr 30.3 mm 26w 3d 86% Olivas AC 218.9 mm 26w 2d 74% Hadlock Femur 46.3 mm 25w 3d 39% Hadlock Humerus 43.1 mm 45% Chitty HC / AC 1.13 EFW 891 g 25w 6d 74% Hadlock EFW (lb) 1 lb EFW (oz) 15 oz EFW by: Hadlock ([id number]) Extended Finisher Cold Rolling 6.7 mm Head / Face / Neck Cephalic index 0.78 48% Nicolaides Extremities / Bony Struc FL / BPD 0.69 FL / HC 0.19 FL / AC 0.21 Other Structures FHR 144 bpm Anatomy Cranium: Normal Lateral ventricles: Normal Choroid plexus: Normal Midline falx: Normal Cavum septi pellucidi: Normal Cerebellum: Normal Cisterna magna: Normal Head / Neck Thalami: Normal Lips: Normal Profile: Normal Nose: Normal 4-chamber view: Normal RVOT view: Normal LVOT view: Normal 3-vessel view: Normal 3-bezphq-ssdymex view: Normal Heart / Thorax Cardiac axis: Normal Diaphragm: Normal Cord insertion: suboptimal Stomach: Visible, with correct situs Kidneys: Normal Bladder: Visible Genitals: Normal Abdomen Abdom. wall: suboptimal Rt kidney: Normal Lt kidney: Normal Large bowel: Normal Cervical spine: suboptimal Thoracic spine: suboptimal Lumbar spine: suboptimal Sacral spine: suboptimal Arms: Both Upper Extremities Seen Hands: normal Legs: Both Lower Extremities Seen Feet: normal sex: female Wants to know sex: yes Biophysical Profile 2: breathing movements 2: Gross body movements 2: tone 2: Amniotic fluid volume 06/12 Biophysical profile score Maternal Structures Uterus / Cervix Uterus: Visualized Cervix: Visualized Ovaries / Tubes / Adnexa Rt ovary: Visualized Rt ovary D1 20.4 mm Rt ovary D2 19.9 mm Rt ovary D3 12.0 mm Rt ovary Vol 2.6 cm??? Lt ovary: Visualized Lt ovary D1 26.9 mm Lt ovary D2 29.8 mm Lt ovary D3 13.2 mm Lt ovary Vol 5.5 cm??? Method ====== Transabdominal ultrasound examination. View: Poor view Normal [facility] US for pregnancyon 5 Interpreted by: Earl Jin Indication ======== Third Trimester Scan for Inpatient, Mac 4, Diabetes Mellitus, Gestational- on Insulin, AMA Multigravida, Class 3 Obesity (BMI > 40) History ====== General History Height 163 cm Height (ft) 5 ft Height (in) 4 in Previous Outcomes 15 Para 5 Children born living ?37w 1 Pregnancies delivered at term (T) 1 Pregnancies delivered (P) 4 Abortions (A) 9 Living children (L) 5 Children born living <37w 4 Miscarriages 9 Other: Vaginal Delivery Maternal Assessment Height 163 cm Height (ft) 5 ft Height (in) 4 in Weight 129 kg Weight (lb) 285 lb BMI 48.92 kg/m ========= Schilling . Number of fetuses: 1 Dating ====== Cycle: LMP date not known GA by prior assessment 25 w + 2 d VA by prior assessment: 04/06/2025 Ultrasound examination on: 12/24/2024 GA by U/S based upon: AC, BPD, Femur, HC GA by U/S 26 w + 3 d VA by U/S: 03/29/2025 Assigned: based on stated VA, selected on 12/24/2024 Assigned GA 25 w + 2 d Assigned VA: 04/06/2025 Growth Overview Exam date GA BPD (mm) HC (mm) AC (mm) FL (mm) HL (mm) EFW (g) 12/24/2024 25w 2d 67.5 93% 246.6 79% 218.9 74% 46.3 39% 43.1 45% 891 74% Impression ========= Patient is inpatient for complicated by AMA, BMI > 40, hypertension and diabetes She she had prior ultrasounds, including dating and anatomic evaluations, at an outside facility A targeted anatomic survey was indicated - biometry is consistent with the stated gestational age -Detailed anatomic evaluation of the brain/ventricles, face, heart/outflow tracts and chest anatomy, abdominal organ specific anatomy, number/length/architectur e of limbs and detailed evaluation of the umbilical cord and placenta and other anatomy as clinically indicated was attempted. -No malformations were identified on this incomplete survey within limitations of sonographic evaluation at this gestational age and maternal acoustic properties and lie. -The adnexa and placenta appear within normal limits -Today's exam was incomplete due to and/or maternal factors. The SERENA and BPP are within normal limits General Evaluation Cardiac activity present. FHR 144 bpm. movements: visualized. Presentation: breech Placenta: Placental site: posterior Umbilical cord: Cord vessels: 3 vessel cord. Insertion site: Suboptimal Amniotic fluid: Amount of AF: normal amount. MVP 6.2 cm. SERENA 22.0 cm. Q1 6.2 cm, Q2 6.1 cm, Q3 4.1 cm, Q4 5.7 cm Biometry Standard BPD 67.5 mm 27w 1d 93% Hadlock OFD 86.1 mm 87% INTERGROWTH-21st HC 246.6 mm 26w 5d 79% Hadlock Cerebellum tr 30.3 mm 26w 3d 86% Olivas AC 218.9 mm 26w 2d 74% Hadlock Femur 46.3 mm 25w 3d 39% Hadlock Humerus 43.1 mm 45% Chitty HC / AC 1.13 EFW 891 g 25w 6d 74% Hadlock EFW (lb) 1 lb EFW (oz) 15 oz EFW by: Hadlock ([id number]-FL) Extended Finisher Cold Rolling 6.7 mm Head / Face / Neck Cephalic index 0.78 48% Nicolaides Extremities / Bony Struc FL / BPD 0.69 FL / HC 0.19 FL / AC 0.21 Other Structures FHR 144 bpm Anatomy Cranium: Normal Lateral ventricles: Normal Choroid plexus: Normal Midline falx: Normal Cavum septi pellucidi: Normal Cerebellum: Normal Cisterna magna: Normal Head / Neck Thalami: Normal Lips: Normal Profile: Normal Nose: Normal 4-chamber view: Normal RVOT view: Normal LVOT view: Normal 3-vessel view: Normal 0-ikpdun-tqlttsd view: Normal Heart / Thorax Cardiac axis: Normal Diaphragm: Normal Cord insertion: suboptimal Stomach: Visible, with correct situs Kidneys: Normal Bladder: Visible Genitals: Normal Abdomen Abdom. wall: suboptimal Rt kidney: Normal Lt kidney: Normal Large bowel: Normal Cervical spine: suboptimal Thoracic spine: suboptimal Lumbar spine: suboptimal Sacral spine: suboptimal Arms: Both Upper Extremities Seen Hands: normal Legs: Both Lower Extremities Seen Feet: normal sex: female Wants to know sex: yes Biophysical Profile 2: breathing movements 2: Gross body movements 2: tone 2: Amniotic fluid volume 8/8 Biophysical profile score Maternal Structures Uterus / Cervix Uterus: Visualized Cervix: Visualized Ovaries / Tubes / Adnexa Rt ovary: Visualized Rt ovary D1 20.4 mm Rt ovary D2 19.9 mm Rt ovary D3 12.0 mm Rt ovary Vol 2.6 cm Lt ovary: Visualized Lt ovary D1 26.9 mm Lt ovary D2 29.8 mm Lt ovary D3 13.2 mm Lt ovary Vol 5.5 cm Method ====== Transabdominal ultrasound examination. View: Poor view [facility] Earl Colorado MD - 12/24/2024 Interpreted by: Earl Colorado Indication ======== Third Trimester Scan for Inpatient, Mac 4, Diabetes Mellitus, Gestational- on Insulin, AMA Multigravida, Class 3 Obesity (BMI > 40) History ====== General History Dxpzlv675 cm Height (ft)5 ft Height (in)4 in Previous Outcomes Pbgmcuo32 Para5 Children born living ?37w1 Pregnancies delivered at term (T)1 Pregnancies delivered (P)4 Abortions (A)9 Living children (L)5 Children born living <37w4 Miscarriages9 Other:Vaginal Delivery Maternal Assessment Ubamly610 cm Height (ft)5 ft Height (in)4 in Fpybie783 kg Weight (lb)285 lb BMI48.92 kg/m ========= Schilling . Number of fetuses: 1 Dating ====== Cycle:LMP date not known GA by prior [id number] w + 2 d VA by prior assessment:04/06/2025 Ultrasound examination on:12/24/2024 GA by U/S based upon:AC, BPD, Femur, HC GA by U/S26 w + 3 d VA by U/S:03/29/2025 Assigned:based on stated VA, selected on 12/24/2024 Assigned GA25 w + 2 d Assigned VA:04/06/2025 Growth Overview Exam date GA BPD (mm) HC (mm) AC (mm) FL (mm) HL (mm) EFW (g) 12/24/2024 25w 2d 67.5 93% 246.6 79% 218.9 74% 46.3 39% 43.1 45% 891 74% Impression ========= Patient is inpatient for complicated by AMA, BMI > 40, hypertension and diabetes She she had prior ultrasounds, including dating and anatomic evaluations, at an outside facility A targeted anatomic survey was indicated - biometry is consistent with the stated gestational age -Detailed anatomic evaluation of the brain/ventricles, face, heart/outflow tracts and chest anatomy, abdominal organ specific anatomy, number/length/architectur e of limbs and detailed evaluation of the umbilical cord and placenta and other anatomy as clinically indicated was attempted. -No malformations were identified on this incomplete survey within limitations of sonographic evaluation at this gestational age and maternal acoustic properties and lie. -The adnexa and placenta appear within normal limits -Today's exam was incomplete due to and/or maternal factors. The SERENA and BPP are within normal limits General Evaluation Cardiac activity present. FHR 144 bpm. movements: visualized. Presentation: breech Placenta: Placental site: posterior Umbilical cord: Cord vessels: 3 vessel cord. Insertion site: Suboptimal Amniotic fluid: Amount of AF: normal amount. MVP 6.2 cm. SERENA 22.0 cm. Q1 6.2 cm, Q2 6.1 cm, Q3 4.1 cm, Q4 5.7 cm Biometry Standard BPD67.5 mm27w 1d 93% Hadlock OFD86.1 mm 87% INTERGROWTH-21st HC246.6 mm26w 5d 79% Hadlock Cerebellum tr30.3 mm26w 3d 86% Olivas AC218.9 mm26w 2d 74% Hadlock Femur46.3 mm25w 3d 39% Hadlock Zqclcdt36.1 mm 45% Chitty HC / AC1.13 PVP936 g25w 6d 74% Hadlock EFW (lb)1 lb EFW (oz)15 oz EFW by:Hadlock ([id number]-FL) Extended Vp6.7 mm Head / Face / Neck Cephalic index0.78 48% Nicolaides Extremities / Bony Struc FL / BPD0.69 FL / HC0.19 FL / AC0.21 Other Structures MJN144 bpm Anatomy Cranium:Normal Lateral ventricles:Normal Choroid plexus:Normal Midline falx:Normal Cavum septi pellucidi:Normal Cerebellum:Normal Cisterna magna:Normal Head / Neck Thalami:Normal Lips:Normal Profile:Normal Nose:Normal 4-chamber view:Normal RVOT view:Normal LVOT view:Normal 3-vessel view:Normal 8-ipbrhq-dhzhjbd view:Normal Heart / Thorax Cardiac axis:Normal Diaphragm:Normal Cord insertion:suboptimal Stomach:Visible, with correct situs Kidneys:Normal Bladder:Visible Genitals:Normal Abdomen Abdom. wall:suboptimal Rt kidney:Normal Lt kidney:Normal Large bowel:Normal Cervical spine:suboptimal Thoracic spine:suboptimal Lumbar spine:suboptimal Sacral spine:suboptimal Arms:Both Upper Extremities Seen Hands:normal Legs:Both Lower Extremities Seen Feet:normal sex:female Wants to know sex:yes Biophysical Profile 2: breathing movements 2: Gross body movements 2: tone 2: Amniotic fluid volume 06/12 Biophysical profile score Maternal Structures Uterus / Cervix Uterus:Visualized Cervix:Visualized Ovaries / Tubes / Adnexa Rt ovary:Visualized Rt ovary D120.4 mm Rt ovary D219.9 mm Rt ovary D312.0 mm Rt ovary Vol2.6 cm Lt ovary:Visualized Lt ovary D126.9 mm Lt ovary D229.8 mm Lt ovary D313.2 mm Lt ovary Vol5.5 cm Method ====== Transabdominal ultrasound examination. View: Poor view [facility] Work Phone: Radiology Study observation (narrative) [facility] Work Phone: US for pregnancyOrdered By: Earl Colorado on 12-24-2024 [facility] Work Phone: Beta hydroxybutyrate [Mass o r moles/Vol]on 12-23-2024 Beta hydroxybutyrate [Moles/Vol] 0.11 mmol/L 0.02 - 0.27 mmol/L [facility] The beta-hydroxybuty rate test performance characteristics have been validated by [facility]. This test has not been approved by the FDA; however such approval is not necessary. [facility] Beta hydroxybutyrate [Moles/Vol] 0.11 mmol/L Normal 0.02-0.27 [facility] Comment on above: Order Comment: The b eta-hydroxybutyrate test performance characteristics have been validated by [facility]. This test has not been approved by the FDA; however such approval is not necessary. Performed By: #### 3 5255-9 #### QUIN Simon ([id number]) [facility] ([facility]) [id number] [place], [place] [id number] Blood type and Indirect anti body screen panel (Bld)on 12-23-2024 ABO group Nom (Bld) O Normal [facility] Comment on above: Performed By: #### 2 341-6 #### QUIN Simon ([id number]) [facility] ([facility]) [address] [place] [address] 03885 Blood group antibody screen Ql Negative [facility] Comment on above: Performed By: #### 2 341-6 #### QUIN Simon ([id number]) [facility] ([facility]) [address] [place] [address] 86591 D Ag Ql (Bld) Positive [facility] Comment on above: Performed By: #### 2 341-6 #### QUIN Simon ([id number]) [facility] ([facility]) [address] [place] [address] 45902 CBC panel Auto (Bld)on 12-23 Erythrocyte distribution width (RBC) [Ratio] 13.3 % 11.5 - 14.5 % [facility] Hematocrit (Bld) [Volume fraction] 35.7 % Low 36.0 - 46.0 % [facility] Hemoglobin (Bld) [Mass/Vol] 12.1 g/dL 12.0 - 16.0 g/dL [facility] MCH (RBC) [Entitic mass] 29.7 pg 26.0 - 34.0 pg [facility] MCHC (RBC) [Mass/Vol] 33.9 g/dL 32.0 - 36.0 g/dL [facility] MCV (RBC) [Entitic vol] 88 fL 80 - 100 fL [facility] Nucleated RBC/100 WBC (Bld) [Ratio] 0 % [facility] Platelets (Bld) [#/Vol] 207 10*3/uL [facility] RBC (Bld) [#/Vol] 4.08 10*6/uL [facility] WBC (Bld) [#/Vol] 14.6 10*3/uL High [facility] Erythrocyte distribution width (RBC) [Ratio] 13.3 % Normal 11.5-14.5 [facility] Comment on above: Performed By: #### 5 8410-2 #### QUIN Simon ([id number]) [facility] ([facility]) [address] [place] [address] 40723 Hematocrit (Bld) [Volume fraction] 35.7 % Low 36.0-46.0 [facility] Comment on above: Performed By: #### 5 8410-2 #### QUIN Simon ([id number]) [facility] ([facility]) [address] [place] [address] 93543 Hemoglobin (Bld) [Mass/Vol] 12.1 g/dL Normal 12.0-16.0 [facility] Comment on above: Performed By: #### 5 8410-2 #### QUIN Simon ([id number]) [facility] ([facility]) [address] [place] [address] 10501 MCH (RBC) [Entitic mass] 29.7 pg Normal 26.0-34.0 [facility] Comment on above: Performed By: #### 5 8410-2 #### QUIN Simon ([id number]) [facility] ([facility]) [address] [place] [address] 96777 MCHC (RBC) [Mass/Vol] 33.9 g/dL Normal 32.0-36.0 [facility] Comment on above: Performed By: #### 5 8410-2 #### QUIN Simon ([id number]) [facility] ([facility]) [address] [place] [address] 49704 MCV (RBC) [Entitic vol] 88 fL Normal 80-100 [facility] Comment on above: Performed By: #### 5 8410-2 #### QUIN Simon ([id number]) [facility] ([facility]) [id number] [place] [address] 37360 Nucleated RBC/100 WBC (Bld) [Ratio] 0.0 /100 WBCs Normal 0.0-0.0 [facility] Comment on above: Performed By: #### 5 8410-2 #### QUIN Simon ([id number]) [facility] ([facility]) [address] [place] [address] 18887 Platelets (Bld) [#/Vol] 207 x10*3/uL Normal 150-450 [facility] Comment on above: Performed By: #### 5 8410-2 #### QUIN Simon ([id number]) [facility] ([facility]) [address] [place] [address] 04093 RBC (Bld) [#/Vol] 4.08 x10*6/uL Normal 4.00-5.20 [facility] Comment on above: Performed By: #### 5 8410-2 #### QUIN Simon ([id number]) [facility] ([facility]) [address] [place] [address] 64937 WBC (Bld) [#/Vol] 14.6 x10*3/uL High 4.4-11.3 [facility] Comment on above: Performed By: #### 5 8410-2 #### QUIN Simon ([id number]) [facility] ([facility]) [address] [place] [address] 13886 Comprehensive metabolic 2000 panelon 12-23-2024 Albumin BCP dye [Mass/Vol] 3.5 g/dL 3.4 - 5.0 g/dL [facility] ALP [Catalytic activity/Vol] 75 U/L 33 - 110 U/L [facility] ALT With P-5'-P [Catalytic activity/Vol] 5 U/L Low 7 - 45 U/L [facility] Comment on above: Patients treated wit h Sulfasalazine may generate falsely decreased results for ALT. Anion gap [Moles/Vol] 17 mmol/L 10 - 2 0 mmol/L [facility] AST With P-5'-P [Catalytic activity/Vol] 9 U/L 9 - 39 U/L [facility] Bilirubin [Mass/Vol] 0.4 mg/dL 0.0 - 1 .2 mg/dL [facility] Calcium [Mass/Vol] 9.1 mg/dL 8.6 - 10. 6 mg/dL [facility] Chloride [Moles/Vol] 103 mmol/L 98 - 10 7 mmol/L [facility] CO2 [Moles/Vol] 17 mmol/L Low 21 - 32 mmol/L [facility] Creatinine [Mass/Vol] 0.45 mg/dL Low 0.50 - 1.05 mg/dL [facility] eGFR - PINF [facility] Comment on above: Calculations of zoya mated GFR are performed using the 2020 CKD-EPI Study Refit equation without the race variable for the IDMS-Traceable creatinine methods. https://jasn.asnjournals.org/content//ASN.724323 4375 Glucose [Mass/Vol] 234 mg/dL High 74 - 99 mg/dL [facility] Interpretation and review of laboratory results Abnormal [facility] Potassium [Moles/Vol] 3.8 mmol/L 3.5 - 5.3 mmol/L [facility] Protein [Mass/Vol] 6.5 g/dL 6.4 - 8.2 g/dL [facility] Sodium [Moles/Vol] 133 mmol/L Low 136 - 145 mmol/L [facility] Urea nitrogen [Mass/Vol] 5 mg/dL Low 6 - 23 mg/dL [facility] Albumin BCP dye [Mass/Vol] 3.5 g/dL Normal 3.4-5.0 [facility] Comment on above: Performed By: #### 2 4323-8 #### QUIN Simon ([id number]) [facility] ([facility]) [address] [place] [address] ALP [Catalytic activity/Vol] 75 U/L Normal 33-110 [facility] Comment on above: Performed By: #### 2 4323-8 #### QUIN Simon ([id number]) [facility] ([facility]) [address] [place] [address] ALT With P-5'-P [Catalytic activity/Vol] 5 U/L Low 7-45 [facility] Comment on above: Result Comment: Nguyen ents treated with Sulfasalazine may generate falsely decreased results for ALT. Performed By: #### 2 4323-8 #### QUIN Simon ([id number]) [facility] ([facility]) [address] [place] [address] Anion gap [Moles/Vol] 17 mmol/L Normal 10-20 [facility] Comment on above: Performed By: #### 2 4323-8 #### QUIN Simon ([id number]) [facility] ([facility]) [address] [place] [address] AST With P-5'-P [Catalytic activity/Vol] 9 U/L Normal 9-39 [facility] Comment on above: Performed By: #### 2 4323-8 #### QUIN HARTMAN L ([id number]) [facility] ([facility]) [address] [place] [address] Bilirubin [Mass/Vol] 0.4 mg/dL Normal 0.0-1.2 [facility] Comment on above: Performed By: #### 2 4323-8 #### QUIN Simon ([id number]) [facility] ([facility]) [address] [place] [address] Calcium [Mass/Vol] 9.1 mg/dL Normal 8.6-10.6 [facility] Comment on above: Performed By: #### 2 4323-8 #### QUIN HARTMAN L ([id number]) [facility] ([facility]) [address] [place] [address]107 Chloride [Moles/Vol] 103 mmol/L Normal 98-107 [facility] Comment on above: Performed By: #### 2 4323-8 #### QUIN HARTMAN L ([id number]) [facility] ([facility]) [address] [place] [address] CO2 [Moles/Vol] 17 mmol/L Low 21-32 [facility] Comment on above: Performed By: #### 2 4323-8 #### QUIN Simon ([id number]) [facility] ([facility]) [address] [place] [address] Creatinine [Mass/Vol] 0.45 mg/dL Low 0.50-1.05 [facility] Comment on above: Performed By: #### 2 4323-8 #### QUIN Simon ([id number]) [facility] ([facility]) [address] [place] [address] GFR/1.73 sq M.predicted MDRD (S/P/Bld) [Vol rate/Area] mL/min/{1.73_m2} Normal >60 [facility] Comment on above: Result Comment: Calc ulations of estimated GFR are performed using the 2020 CKD-EPI Study Refit equation without the race variable for the IDMS-Traceable creatinine methods. https://jasn.asnjournals.org/content/early//ASN.329093 5590 Performed By: #### 2 4323-8 #### QUIN Simon ([id number]) [facility] ([facility]) [address] [place] [address] Glucose [Mass/Vol] 234 mg/dL High 74-99 [facility] Comment on above: Performed By: #### 2 4323-8 #### QUIN Simon ([id number]) [facility] ([facility]) [address] [place] [address] Potassium [Moles/Vol] 3.8 mmol/L Normal 3.5-5.3 [facility] Comment on above: Performed By: #### 2 4323-8 #### QUIN Simon ([id number]) [facility] ([facility]) [address] [place] [address] Protein [Mass/Vol] 6.5 g/dL Normal 6.4-8.2 [facility] Comment on above: Performed By: #### 2 4323-8 #### QUIN Simon ([id number]) [facility] ([facility]) [address] [place] [address]40 Sodium [Moles/Vol] 133 mmol/L Low 136-145 [facility] Comment on above: Performed By: #### 2 4323-8 #### QUIN Simon ([id number]) [facility] ([facility]) [address] [place] [address] 65175 Urea nitrogen [Mass/Vol] 5 mg/dL Low 6-23 [facility] Comment on above: Performed By: #### 2 4323-8 #### QUIN Simon ([id number]) [facility] ([facility]) [address] [place] [address] 07689 Glucose Test strip manual (B ld) [Mass/Vol]on 12-23-2024 Glucose [Mass/Vol] 170 mg/dL High 74 - 99 mg/dL [facility] Interpretation and review of laboratory results Abnormal [facility] Glucose [Mass/Vol] 170 mg/dL High 74-99 [facility] Comment on above: Performed By: #### 2 341-6 #### QUIN Simon ([id number]) [facility] ([facility]) [address] [place] [address] 65281 Glucose [Mass/Vol] 146 mg/dL High 74 - 99 mg/dL [facility] Interpretation and review of laboratory results Abnormal [facility] Glucose [Mass/Vol] 146 mg/dL High 74-99 [facility] Comment on above: Performed By: #### 2 341-6 #### QUIN Simon ([id number]) [facility] ([facility]) [address] [place] [address] 91486 Glucose [Mass/Vol] 301 mg/dL High 74 - 99 mg/dL [facility] Interpretation and review of laboratory results Abnormal [facility] Glucose [Mass/Vol] 301 mg/dL High 74-99 [facility] Comment on above: Performed By: #### 2 341-6 #### QUIN Simon ([id number]) [facility] ([facility]) [address] [place] [address] 97580 Glucose [Mass/Vol] 303 mg/dL High 74 - 99 mg/dL [facility] Interpretation and review of laboratory results Abnormal [facility] Glucose [Mass/Vol] 303 mg/dL High 74-99 [facility] Comment on above: Performed By: #### 2 341-6 #### QUIN Simon ([id number]) [facility] ([facility]) [address] [place] [address] 59864 HbA1c (Bld) [Mass fraction]o n 12-23-2024 Average glucose Estimated from glycated hemoglobin (Bld) [Mass/Vol] 140 mg/dL Not Established [facility] Diagnosis of Diabetes-Adults Non-Diabetic: < or = 5.6% Increased risk for developing diabetes: 5.7-6.4% Diagnostic of diabetes: > or = 6.5% [facility] Average glucose Estimated from glycated hemoglobin (Bld) [Mass/Vol] 140 mg/dL Normal Not Established [facility] Comment on above: Order Comment: Diagn osis of Diabetes-Adults Non-Diabetic: < or = 5.6% Increased risk for developing diabetes: 5.7-6.4% Diagnostic of diabetes: > or = 6.5% Performed By: #### 4 548-4 #### QUIN Simon ([id number]) [facility] ([facility]) [address] [place] [address] 01156 Hemoglobin A1con 12-23-2024 HbA1c (Bld) [Mass fraction] 6.5 % High See comment [facility] Hemoglobin A1c/Hemoglobin.to perico 12-23-2024 HbA1c (Bld) [Mass fraction] 6.5 % High See comment [facility] Comment on above: Order Comment: Diagn osis of Diabetes-Adults Non-Diabetic: < or = 5.6% Increased risk for developing diabetes: 5.7-6.4% Diagnostic of diabetes: > or = 6.5% Performed By: #### 4 548-4 #### QUIN Simon ([id number]) [facility] ([facility]) [address] [place], [place] [address] Lactate Dehydrogenaseon 12-06 LDH Lactate to pyruvate reaction [Catalytic activity/Vol] 152 U/L 84 - 246 U/L [facility] Lactate dehydrogenaseon 12-06 LDH Lactate to pyruvate reaction [Catalytic activity/Vol] 152 U/L Normal 84-246 [facility] Comment on above: Performed By: #### 1 4804-9 #### QUIN Simon ([id number]) [facility] ([facility]) [address] [place], [place] [address] No Panel Informationon 12-23 Interpretation and review of laboratory results Normal [facility] Interpretation and review of laboratory results Abnormal [facility] POCT UA (nonautomated) steffanyangel unakai resultedon 12-23-2024 Appearance (U) Clear Clear [facility] Work Phone: [phone] Glucose Test strip (U) [Mass/Vol] 500 (3+) Abnormal NEGATIVE mg/dl [facility] Work Phone: [phone] Hemoglobin Ql (U) Negative NEGATIVE [facility] Work Phone: [phone] Interpretation and review of laboratory results Abnormal [facility] Work Phone: [phone] Leukocyte esterase Test strip Ql (U) Negative NEGATIVE [facility] Work Phone: [phone] Nitrite Ql (U) Negative NEGATIVE [facility] Work Phone: [phone] pH (U) 5.5 [pH] No Reference Range Established [facility] Work Phone: [phone] POC Bilirubin, Urine Negative NEGATIVE [facility] Work Phone: [phone] POC Color, Urine Yellow Straw, Yellow, Light-Yellow [facility] Work Phone: [phone] POC Ketones, Urine Negative NEGATIVE mg/dl [facility] Work Phone: POC Protein, Urine 15 (1+) Abnormal NEGATIVE mg/dl [facility] Work Phone: POC Specific [place], Urine 1.025 1.005 - 1.035 [facility] Work Phone: Comment on above: 1.030, but not an op tion POC Urobilinogen, Urine 0.2 0.2, 1.0 EU/DL [facility] Work Phone: [facility] Work Phone: Proteinon 12-23-2024 Protein Qn (U) 8 mg/dL Normal 5-24 [facility] Comment on above: Performed By: #### 2 7298-9 #### QUIN Simon ([id number]) [facility] ([facility]) [address] [place] [address] 31349 Protein Qn (U)on 12-23-2024 Creatinine (U) [Mass/Vol] 30.1 mg/dL 20.0 - 320.0 mg/dL [facility] Interpretation and review of laboratory results Abnormal [facility] Protein/Creatinine (U) [Mass ratio] 0.27 mg/g High [facility] Creatinine (U) [Mass/Vol] 30.1 mg/dL Normal 20.0-320.0 [facility] Comment on above: Performed By: #### 2 7298-9 #### QUIN Simon ([id number]) [facility] ([facility]) [address] [place] [address]28 Protein/Creatinine (U) [Mass ratio] 0.27 mg/mg Creat High 0.00-0.17 [facility] Comment on above: Performed By: #### 2 7298-9 #### QUIN Simon ([id number]) [facility] ([facility]) [address] [place] [address] 057[address] Protein, Urine Randomon 12-06 Protein Qn (U) 8 mg/dL 5 - 24 mg/dL [facility] Syphilis Screen with ReflexO rdered By: Naya Khan on 12-23-2024 T. pallidum IgG+IgM IA Ql (S) Non-Reactive Nonreactive [facility] Comment on above: No significant level of Treponema pallidum antibody detected. Repeat testing in 2 to 4 weeks may be considered if early infection or incubating syphilis infection is suspected. T. pallidum IgG+IgM IA Ql (S )Ordered By: Naya Khan on 12-23-2024 Interpretation and review of laboratory results [facility] Treponema pallidum Ab.IgG+Ig Mon 12-23-2024 T. pallidum IgG+IgM IA Ql (S) Non-Reactive Normal Nonreactive [facility] Comment on above: Order Comment: This test is for Syphilis screening, for Syphilis monitoring order RPR with Titer, Syphilis Monitoring Result Comment: No s ignificant level of Treponema pallidum antibody detected. Repeat testing in 2 to 4 weeks may be considered if early infection or incubating syphilis infection is suspected. Performed By: #### 2 341-6 #### QUIN Simon ([id number]) [facility] ([facility]) [address] [place] [address] Urateon 12-23-2024 Urate [Mass/Vol] 2.3 mg/dL Normal 2.3-6.7 [facility] Comment on above: Result Comment: Jessica puncture immediately after or during the administration of Metamizole may lead to falsely low results. Testing should be performed immediately prior to Metamizole dosing. Performed By: #### 3 084-1 #### QUIN Simon ([id number]) [facility] ([facility]) [address] [place] [address] Urate [Mass/Vol]on Interpretation and review of laboratory results Normal [facility] Uric Acidon 12-23-2024 Urate [Mass/Vol] 2.3 mg/dL 2.3 - 6.7 mg/dL [facility] Comment on above: Venipuncture immedia tely after or during the administration of Metamizole may lead to falsely low results. Testing should be performed immediately prior to Metamizole dosing. Urinalysis macro (dipstick) panel (U)on 12-23-2024 Appearance (Body fld) [facility] Work Phone: Bilirubin, UA Negative [facility] Work Phone: [phone] Blood, UA Negative [facility] Work Phone: [phone] Clarity, UA Clear [facility] Work Phone: [phone] Color, UA Light-Yellow [facility] Work Phone: [phone] Glucose, UA 3+ [facility] Work Phone: Interpretation and review of laboratory results Abnormal [facility] Work Phone: Ketones, UA Negative [facility] Work Phone: Leukocytes, UA Negative [facility] Work Phone: [phone] Nitrite, UA Negative [facility] Work Phone: pH, UA 5.5 [facility] Work Phone: Protein, UA Negative [facility] Work Phone: Spec Grav, UA 1.015 [facility] Work Phone: Urobilinogen, UA 0.2 [facility] Work Phone: [facility] Work Phone: Urine Cultureon 12-19-2024 URC Mixed Gram Positive Organisms [place] Count 1000-10,000 MIXC Mixed contaminants. Submit a new specimen if indicated. Normal [facility] Comment on above: Performed By: #### M 100.1679 ####[facility] [address] [place], [address] Insurance Sales Executive Office Visit Reporton 12-17-2024 Insurance Sales Executive Office Visit Report Normal [facility] MR/BMS.BPon 12-08-2024 MR/BMS.BP Normal [facility] MR/BMS.BPon 12-03-2024 MR/BMS.BP Normal [facility] Office Visiton 11-25-2024 Follow-up visit [id number] Ari Tinsley 1991 F Date Provider Department Center 11/25/2024 SUGEY GONZALEZ [facility] None Chart Close Cosign Required by: Izabel Whipple MD[[facility]] Family History Problem Relation Age of Onset Heart disease Father No Known Problems Brother Other Sister 22.00 Comments: overdose Breast cancer Mother's Sister Mental illness Mother No Known Problems Brother No Known Problems Sister Family Status - Relation Status Age at Father Alive Brother Alive Sister Mother's Sister Alive Mother Alive Brother Alive Sister Alive Paternal Grandfather Alive Son Alive Maternal Grandmother Alive Maternal Grandfather Alive Paternal Grandmother Alive Level of Service:0500F [place] INITIAL CARE VISIT (,) Reason for Visit and Comments: New Patient [542] - C/o baby being low and it hurts to walk [facility] Progress Noteon 11-25-2024 Progress Note Pt states she feels baby moving [facility] Progress Note ----- ----- Attestation signed by Izabel Whipple MD at 12/10/2024 9:56 AM [facility]: [facility] by the resident. I reviewed and agree with the care provided by the resident during or immediately following the visit including the patient's medical history, the resident's finding in the physical exam, patient's diagnosis and treatment plan. ----- Dayna Tinsley 11/25/[birth year]24 33 y.o. Chief Complaint Patient presents with New Patient C/o baby being low and it hurts to walk No LMP recorded. Primary CarePhysician: No primary care provider on file. New OB Visit Subjective: Gestational Age: 21w1d Chief Complaint Patient presents with New Patient C/o baby being low and it hurts to walk HPI: Dayna Tinsley is a 33 y.o. female presents today for initial OB appointment at 21w1d dated by LMP (06/30/24). Patient doing well, noted that baby is lower in her pelvis and has some hip pains. Patient currently taking vitamin or multivitamin with folic acid: yes. Denies cramping or vaginal bleeding. History of Previous : No History of 3rd/4th Degree Laceration: No Previous Schilling : Yes Genetic Screening: Yes; Previously Completed: Low Risk NIPT Date of Last Pap Smear: 09/02/24; HPV - Cats at Home: No. If yes, advised to not change litter box. Tobacco Use: Yes Caffeine Use: Yes Alcohol Use: No Drug Use: No Occupation: [employer] Review of Systems: Pertinent items are noted in HPI. Objective: Vitals: 11/25/24 1309 BP: 116/74 Pulse: 90 Temp: 36.6 ?C (97.8 ?F) There is no height or weight on file to calculate BMI. Physical Exam: General: NAD, A&Ox3 HEENT: Normocephalic, atraumatic Abdomen: Nontender, uterus palpable on exam Skin: Warm/dry LE: No edema bilaterally, no calf tenderness or swelling SSE/SVE: Deferred Assessment/Plan: ASA Indications High Risk Indication for Daily ASA: History of PreE and cHTN Two Moderate Risk Indication for Daily ASA: BMI >30 and Age >35 Pre-Gestational Diabetes Screening High Risk BMI (>25): Yes Additional Risk Factors: History of Gestational Diabetes and Hypertension Upon entering room for appointment, patient inquired whether this provider was resident physician. Stated that this provider is in residency training. Patient then stated that she is uncomfortable with being managed by residency care, as last time they messed up my baby. Discussed with patient that current appointment is with residency clinic and if patient is uncomfortable with care provided, then patient has right to seek care elsewhere. She is wanting to continue care with primary OB and high risk appointments with childrens. She did enjoy appointment with Dr. Taylor and would like to continue high risk care with himself. Does not have issue if resident would be involved in . Patient agreeable to discuss PMHX, OB Hx to update [facility] Chart, should decision be made that she need to delivery with HROB/cMFM and care with [facility]. Patient very hesitent to discuss OB History with Provider, however was able to elicit: Hx 11 SAB, unable to elicit years, however initial in 2010 5 live births (PreE with 3 pregnancies, HELLP with 2 pregnancies (both girls) 1st GDMA, FAVD (33wks, measuring 41?) 2nd (avoided doctor like the plague, Natural Spontaneous), SROMd with delivery, 36w1d (PreEwSF) 4th (female), 72 hour stay in hospital 36w4d 5th 37w1d HELLP, noted on magnesium and had seizure, given valium at that time, shook for about two minutes, was in a daze for 7/8 hours. Did CTA at that time which was normal per patient. 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 L3890.6100, L3890.6005 ####[facility] [address] [place], [address] Urea nitrogen [Mass/Vol] 13 mg/dL Normal 7-18 [facility] Comment on above: Performed By: #### B TS, L100.0100, L900.0098, L509.4005, L3890.6300, L500.4050, L501.9985, L509.8000, L3890.6100, L3890.6005 ####[facility] [address] [place], [address] HIV - WCHon 09-25-2024 HIV Non-Reactive Normal Nonreactive [facility] Comment on above: Order Comment: Reaso n for Exam: Performed By: #### B TS, L100.0100, L900.0098, L509.4005, L3890.6300, L500.4050, L501.9985, L509.8000, L3890.6100, L3890.6005 ####[facility] [address] [place], [address] Hemoglobin A1con 09-25-2024 HbA1c (Bld) [Mass fraction] 5.4 % Normal 3.8-5.6 [facility] Comment on above: Result Comment: Norm al < 5.7 % Prediabetic 5.7 - 6.4 % Diabetic >or= 6.5 % Please note range changes. Performed By: #### B TS, L100.0100, L900.0098, L509.4005, L3890.6300, L500.4050, L501.9985, L509.8000, L3890.6100, L3890.6005 ####[facility] [address] [place], [address] Hepatitis B Surface Antigeno n 09-25-2024 HEP B Surf Ag Non-Reactive Normal Nonreactive [facility] Comment on above: Order Comment: Reaso n for Exam: Performed By: #### B TS, L100.0100, L900.0098, L509.4005, L3890.6300, L500.4050, L501.9985, L509.8000, L3890.6100, L3890.6005 ####[facility] [address] [place], [address] Hepatitis C Antibodyon 11-21 -2024 Hepatitis C AB Non-Reactive Normal Nonreactive [facility] Comment on above: Order Comment: Reaso n for Exam: Result Comment: Non Reactive: < 0.8 Equivocal: >/= 0.8 to < 1.0 Reactive: >/= 1.0The [facility] requires that a reactive/equivocal HCV antibodyresult be sent out for confirmation. HCV Quant by PCRtesting. Performed By: #### B TS, L100.0100, L900.0098, L509.4005, L3890.6300, L500.4050, L501.9985, L509.8000, L3890.6100, L3890.6005 ####[facility] [address] [place], [address] L509.8000on 09-25-2024 Syphilis Abs Non-Reactive Normal [facility] Comment on above: Order Comment: Reaso n for Exam: Performed By: #### B TS, L100.0100, L900.0098, L509.4005, L3890.6300, L500.4050, L501.9985, L509.8000, L3890.6100, L3890.6005 ####[facility] [address] [place], [address] NATERAon 09-25-2024 NATURA SEE SCANNED REPORT Normal [facility] Comment on above: Performed By: #### B TS, L100.0100, L900.0098, L509.4005, L3890.6300, L500.4050, L501.9985, L509.8000, L3890.6100, L3890.6005 ####[facility] [address] [place], [address] Insurance Sales Executive Office Visit Reporton 09-25-2024 Insurance Sales Executive Office Visit Report Normal [facility] Rubella IgGon 09-25-2024 Rubella IgG Reactive Normal Nonreactive [facility] Comment on above: Order Comment: Reaso n for Exam: Result Comment: Anti body Results Interpretation of Immune Status Non Reactive Presumed Non-Immune Equivocal Equivocal Reactive Presumed Immune Performed By: #### B TS, L100.0100, L900.0098, L509.4005, L3890.6300, L500.4050, L501.9985, L509.8000, L3890.6100, L3890.6005 ####[facility] [address] [place], [address] Type AND Screenon 09-25-2024 Ab SCREEN GEL Negative Normal [facility] Comment on above: Order Comment: PN Performed By: #### B TS, L100.0100, L900.0098, L509.4005, L3890.6300, L500.4050, L501.9985, L509.8000, L3890.6100, L3890.6005 ####[facility] [address] [place], [place], [address] PAP IG HPV APTIMA 16/18,45on 09-10-2024 ADEQ Comment Normal . [facility] Comment on above: Order Comment: Speci men Comment: [id number] Comment: Source.............CervixSpecimen Comment: Other..............Specimen Comment: No. of containers..01 ThinPrep Vial Result Comment: Sati sfactory for evaluation. Endocervical and/or squamous metaplasticcells (endocervical component) are present. Performed By: #### L 7400.0280 ####[facility] [address] [place], [place], [address] COMM . Normal . [facility] Comment on above: Order Comment: Speci men Comment: [id number] Comment: Source.............CervixSpecimen Comment: Other..............Specimen Comment: No. of containers..01 ThinPrep Vial Performed By: #### L 7400.0280 ####[facility] [address] [place], [place], [address] COMMENT Comment Normal . [facility] Comment on above: Order Comment: Speci men Comment: [id number] Comment: Source.............CervixSpecimen Comment: Other..............Specimen Comment: No. of containers..01 ThinPrep Vial Result Comment: This liquid based ThinPrep(R) pap test was screened withthe use of an image guided system. Performed By: #### L 7400.0280 ####[facility] [address] [place], [place], [address] DIAG Comment Normal . [facility] Comment on above: Order Comment: Speci men Comment: [id number] Comment: Source.............CervixSpecimen Comment: Other..............Specimen Comment: No. of containers..01 ThinPrep Vial Result Comment: NEGA TIVE FOR INTRAEPITHELIAL LESION OR MALIGNANCY. Performed By: #### L 7400.0280 ####[facility] [address] [place], [place], [address] HPV APTIMA, HR Negative Normal Negative [facility] Comment on above: Order Comment: Speci men Comment: [id number] Comment: Source.............CervixSpecimen Comment: Other..............Specimen Comment: No. of containers..01 ThinPrep Vial Result Comment: This nucleic acid amplification test detects fourteen high-risk HPV types (16,18,31,33,35,39,45,51,52,56,58,59,66,68)without differentiation. Performed By: #### L 7400.0280 ####[facility] [address] [place], [place], [address] HPV Ifrah Rfx Comment Normal . [facility] Comment on above: Order Comment: Speci men Comment: [id number] Comment: Source.............CervixSpecimen Comment: Other..............Specimen Comment: No. of containers..01 ThinPrep Vial Result Comment: Crit eria not met, HPV Genotype not performed.Performed at: - [facility] [address] [id number] Director: Ene Gray MD, Phone: [phone] at: = - [facility] [address] [id number] Director: Ene Gray MD, Phone: [phone] Performed By: #### L 7400.0280 ####[facility] [address] [place], [place], [address] PAPSMR Comment Normal . [facility] Comment on above: Order Comment: Speci men Comment: [id number] Comment: Source.............CervixSpecimen Comment: Other..............Specimen Comment: No. of containers..01 ThinPrep Vial Result Comment: The Pap smear is a screening test designed to aid in thedetection of premalignant and malignant conditions of theuterine cervix. It is not a diagnostic procedure andshould not be used as the sole means of detecting cervicalcancer. Both false-positive and false-negative reports dooccur. Performed By: #### L 7400.0280 ####[facility] [address] [place], [place], [address] PERFORM Comment Normal . [facility] Comment on above: Order Comment: Speci men Comment: [id number] Comment: Source.............CervixSpecimen Comment: Other..............Specimen Comment: No. of containers..01 ThinPrep Vial Result Comment: Nina Bhakta, Follow Up Specialist (ASCP) Performed By: #### L 7400.0280 ####[facility] [address] [place], [address] Chlamydia/GC JYOTI aptimaon CHLAMY,NUC ACID Negative Normal Negative [facility] Comment on above: Performed By: #### L 501.0900, L7000.1800, M100.2200 ####[facility] [address] [place], [address] GC BY NUC ACID Negative Normal Negative [facility] Comment on above: Result Comment: Perf ormed at: =G - [facility] [address] [id number] Director: Ene Gray MD, Phone: [phone] Performed By: #### L 501.0900, L7000.1800, M100.2200 ####[facility] [address] [place], [address] Urine Cultureon 09-04-2024 URC Mixed Gram Positive Organisms [place] Count 50,000-80,000 MIXC Mixed contaminants. Submit a new specimen if indicated. Normal [facility] Comment on above: Performed By: #### L 501.0900, L7000.1800, M100.2200 ####[facility] [address] [place], [address] Insurance Sales Executive Office Visit Reporton 09-02-2024 Insurance Sales Executive Office Visit Report Normal [facility] Protein+Creatinine Ratio,Uri neon 09-02-2024 PROT:CRE RATIO 162 mg/g CRE Normal 0-200 [facility] Comment on above: Performed By: #### L 501.0900, L7000.1800, M100.2200 ####[facility] [address] [place], [address] Protein (U) [Mass/Vol] 15.5 mg/dL High <11.9 [facility] Comment on above: Performed By: #### L 501.0900, L7000.1800, M100.2200 ####[facility] [address] [place], [address] UR CREAT 95.60 mg/dL Normal NO RANGE EST. [facility] Comment on above: Performed By: #### L 501.0900, L7000.1800, M100.2200 ####[facility] [address] [place], [address] Office Visit Reporton 2023 Office Visit Report Normal [facility] Office Visit Reporton 2023 Office Visit Report Normal [facility] Basic Metabolic Profile (BMP )on 08-06-2024 BUN/CRE 10.5 RATIO Normal 10-20 [facility] Comment on above: Performed By: #### L 100.0100, L500.3400, L500.2500, L700.8000 ####[facility] [address] [place], [address] CA,Total 9.3 mg/dL Normal 8.5-10.1 [facility] Comment on above: Performed By: #### L 100.0100, L500.3400, L500.2500, L700.8000 ####[facility] [address] [place], [address] Chloride [Moles/Vol] 109 mmol/L High 98-107 [facility] Comment on above: Performed By: #### L 100.0100, L500.3400, L500.2500, L700.8000 ####[facility] [address] [place], [address] CO2 [Moles/Vol] 26.0 mmol/L Normal 21.0-32.0 [facility] Comment on above: Performed By: #### L 100.0100, L500.3400, L500.2500, L700.8000 ####[facility] [address] [place], [address] Creatinine [Mass/Vol] 0.67 mg/dL Normal 0.55-1.02 [facility] Comment on above: Result Comment: The validity of the calculated GFR GFRAA in patients over70 years has not been determined. Clinical correlation isessential. Performed By: #### L 100.0100, L500.3400, L500.2500, L700.8000 ####[facility] [address] [place], [address] ECRCL 136.76 ml/min Normal [facility] Comment on above: Performed By: #### L 100.0100, L500.3400, L500.2500, L700.8000 ####[facility] [address] [place], [address] EST GFR - AA 130 mL/min Normal >60 [facility] Comment on above: Result Comment: Afri can [place] GFR Calc Performed By: #### L 100.0100, L500.3400, L500.2500, L700.8000 ####[facility] [address] [place], [address] GAP 4 Low 5-15 [facility] Comment on above: Performed By: #### L 100.0100, L500.3400, L500.2500, L700.8000 ####[facility] [address] [place], [address] GFR/1.73 sq M.predicted among non-blacks MDRD (S/P/Bld) [Vol rate/Area] 107 mL/min/{1.73_m2} Normal >60 [facility] Comment on above: Result Comment: Non- GFR Calc Performed By: #### L 100.0100, L500.3400, L500.2500, L700.8000 ####[facility] [address] [place], [address] Glucose [Mass/Vol] 101 mg/dL Normal 74-106 [facility] Comment on above: Result Comment: Fast ing Glucose result from 100 to 125 mg/dLsuggests IMPAIRED HOMEOSTASIS per A.D.A. criteria. Performed By: #### L 100.0100, L500.3400, L500.2500, L700.8000 ####[facility] [address] [place], [address] Potassium [Moles/Vol] 4.0 mmol/L Normal 3.5-5.1 [facility] Comment on above: Result Comment: Slig ht Hemolysis, Result may be falsely increased. Performed By: #### L 100.0100, L500.3400, L500.2500, L700.8000 ####[facility] [address] [place], [address] Sodium [Moles/Vol] 139 mmol/L Normal 136-145 [facility] Comment on above: Performed By: #### L 100.0100, L500.3400, L500.2500, L700.8000 ####[facility] [address] [place], [address] Urea nitrogen [Mass/Vol] 7 mg/dL Normal 7-18 [facility] Comment on above: Performed By: #### L 100.0100, L500.3400, L500.2500, L700.8000 ####[facility] [address] [place], [address] CBC W/Diff, Automatedon 10-0 2-2023 Absolute Lymph 2.80 X10 3/uL Normal 0.83-4.51 [facility] Comment on above: Performed By: #### L 100.0100, L500.3400, L500.2500, L700.8000 ####[facility] [address] [place], [address] Absolute Neut 6.7 X10 3/uL Normal 2.0-7.7 [facility] Comment on above: Performed By: #### L 100.0100, L500.3400, L500.2500, L700.8000 ####[facility] [address] [place], [address] Basophils/100 WBC (Bld) 0.5 % Normal 0-1 [facility] Comment on above: Performed By: #### L 100.0100, L500.3400, L500.2500, L700.8000 ####[facility] [address] [place], [address] Eosinophils/100 WBC (Bld) 0.0 % Normal 0-5 [facility] Comment on above: Performed By: #### L 100.0100, L500.3400, L500.2500, L700.8000 ####[facility] [address] [place], [address] Erythrocyte distribution width (RBC) [Ratio] 12.9 % Normal 11.6-14.6 [facility] Comment on above: Performed By: #### L 100.0100, L500.3400, L500.2500, L700.8000 ####[facility] [address] [place], [address] Hematocrit (Bld) [Volume fraction] 38.6 % Normal 37-47 [facility] Comment on above: Performed By: #### L 100.0100, L500.3400, L500.2500, L700.8000 ####[facility] [address] [place], [address] Hemoglobin (Bld) [Mass/Vol] 12.6 g/dL Normal 12.0-15.0 [facility] Comment on above: Performed By: #### L 100.0100, L500.3400, L500.2500, L700.8000 ####[facility] [address] [place], [address] IG% 0.500 Normal 0.0-0.9 [facility] Comment on above: Result Comment: IG% - Immature Granulocytes (promyelocytes, myelocytes andmetamyelocytes) > 1% indicates that a LEFT SHIFT is Present. Performed By: #### L 100.0100, L500.3400, L500.2500, L700.8000 ####[facility] [address] [place], [address] Lymphocytes/100 WBC (Bld) 28.0 % Normal 19-41 [facility] Comment on above: Performed By: #### L 100.0100, L500.3400, L500.2500, L700.8000 ####[facility] [address] [place], [address] MCH (RBC) [Entitic mass] 29.4 pg Normal 27.0-32.0 [facility] Comment on above: Performed By: #### L 100.0100, L500.3400, L500.2500, L700.8000 ####[facility] [address] [place], [address] MCHC (RBC) [Mass/Vol] 32.6 g/dL Normal 32-36 [facility] Comment on above: Performed By: #### L 100.0100, L500.3400, L500.2500, L700.8000 ####[facility] [address] [place], [address] MCV (RBC) [Entitic vol] 90.0 fL Normal 81-99 [facility] Comment on above: Performed By: #### L 100.0100, L500.3400, L500.2500, L700.8000 ####[facility] [address] [place], [address] Monocytes/100 WBC (Bld) 4.5 % Normal 0-10 [facility] Comment on above: Performed By: #### L 100.0100, L500.3400, L500.2500, L700.8000 ####[facility] [address] [place], [address] Neutrophils/100 WBC (Bld) 66.5 % Normal 47-70 [facility] Comment on above: Performed By: #### L 100.0100, L500.3400, L500.2500, L700.8000 ####[facility] [address] [place], [address] Nucleated RBC (Bld) [#/Vol] 0 10*3/uL Normal 0-5 [facility] Comment on above: Performed By: #### L 100.0100, L500.3400, L500.2500, L700.8000 ####[facility] [address] [place], [address] Platelet mean volume (Bld) [Entitic vol] 10.6 fL Normal 6.2-12.0 [facility] Comment on above: Performed By: #### L 100.0100, L500.3400, L500.2500, L700.8000 ####[facility] [address] [place], [address] Platelets (Bld) [#/Vol] 298 10*3/uL Normal 150-450 [facility] Comment on above: Performed By: #### L 100.0100, L500.3400, L500.2500, L700.8000 ####[facility] [address] [place], [address] RBC (Bld) [#/Vol] 4.29 10*6/uL Normal 4.2-5.4 [facility] Comment on above: Performed By: #### L 100.0100, L500.3400, L500.2500, L700.8000 ####[facility] [address] [place], [address] RDW SD 41.9 fl Normal 35.1-43.9 [facility] Comment on above: Performed By: #### L 100.0100, L500.3400, L500.2500, L700.8000 ####[facility] [address] [place], [address] WBC (Bld) [#/Vol] 10.0 10*3/uL Normal 4.4-11.0 [facility] Comment on above: Performed By: #### L 100.0100, L500.3400, L500.2500, L700.8000 ####[facility] [address] [place], [address] Emergency Department Summary on 08-06-2024 Emergency Department Summary Normal [facility] Liver Profileon 08-06-2024 Albumin [Mass/Vol] 3.7 g/dL Normal 3.2-5.0 [facility] Comment on above: Performed By: #### L 100.0100, L500.3400, L500.2500, L700.8000 ####[facility] [address] [place], [address] ALK P 62 U/L Normal 45-117 [facility] Comment on above: Performed By: #### L 100.0100, L500.3400, L500.2500, L700.8000 ####[facility] [address] [place], [address] ALT [Catalytic activity/Vol] 20 U/L Normal 13-56 [facility] Comment on above: Performed By: #### L 100.0100, L500.3400, L500.2500, L700.8000 ####[facility] [address] [place], [address] AST [Catalytic activity/Vol] 19 U/L Normal 15-37 [facility] Comment on above: Result Comment: Slig ht Hemolysis, Result may be falsely increased. Performed By: #### L 100.0100, L500.3400, L500.2500, L700.8000 ####[facility] [address] [place], [address] Bilirubin [Mass/Vol] 0.50 mg/dL Normal 0.20-1.00 [facility] Comment on above: Result Comment: For patients on eltrombopag therapy, use of Dimension [employer] TBIL is not recommended. Performed By: #### L 100.0100, L500.3400, L500.2500, L700.8000 ####[facility] [address] [place], [address] Bilirubin.direct [Mass/Vol] 0.15 mg/dL Normal 0.00-0.30 [facility] Comment on above: Performed By: #### L 100.0100, L500.3400, L500.2500, L700.8000 ####[facility] [address] [place], [address] Globulin (S) [Mass/Vol] 3.7 g/dL Normal 2.2-4.2 [facility] Comment on above: Performed By: #### L 100.0100, L500.3400, L500.2500, L700.8000 ####[facility] [address] [place], [address] T PROT 7.4 g/dL Normal 6.4-8.2 [facility] Comment on above: Performed By: #### L 100.0100, L500.3400, L500.2500, L700.8000 ####[facility] [address] [place], [address] Transvaginal w/Preg USon Transvaginal w/Preg US Normal [facility] hCG Titer Quant., Serumon HCG QUANT. 3737 mIU/mL High 1-3 [facility] Comment on above: Result Comment: hCG levels with Gestational AgeGestational Age hCG mIU/mL (IU/L)0.2 - 1 week 5 - 501-2 weeks 50 - 5002-3 weeks 100 - 16754-7 weeks 500 - 890195-1 weeks 1000 - 620820-2 weeks 74143 - 100,0006-8 weeks 30268 - 200,0002-3 months 82445 - 100,000 Performed By: #### L 100.0100, L500.3400, L500.2500, L700.8000 ####[facility] [address] [place], [address] Emergency Department Summary on 06-30-2024 Emergency Department Summary Normal [facility] [id number] 06-11-2024 ABO and Rh group Nom (Bld) Blood group O Rh(D) positive Normal [facility] Comment on above: Performed By: #### L 700.8000, L100.0100, B882-1 ####[facility] [address] [place], [address] CBC W/Diff, Automatedon 08 Absolute Lymph 3.77 X10 3/uL Normal 0.83-4.51 [facility] Comment on above: Performed By: #### L 700.8000, L100.0100, B882-1 ####[facility] [address] [place], [address] Absolute Neut 5.2 X10 3/uL Normal 2.0-7.7 [facility] Comment on above: Performed By: #### L 700.8000, L100.0100, B882-1 ####[facility] [address] [place], [address] Basophils/100 WBC (Bld) 0.5 % Normal 0-1 [facility] Comment on above: Performed By: #### L 700.8000, L100.0100, B882-1 ####[facility] [address] [place], [address] Eosinophils/100 WBC (Bld) 2.7 % Normal 0-5 [facility] Comment on above: Performed By: #### L 700.8000, L100.0100, B882-1 ####[facility] [address] [place], [address] Erythrocyte distribution width (RBC) [Ratio] 12.6 % Normal 11.6-14.6 [facility] Comment on above: Performed By: #### L 700.8000, L100.0100, B882-1 ####[facility] [address] [place], [address] Hematocrit (Bld) [Volume fraction] 40.7 % Normal 37-47 [facility] Comment on above: Performed By: #### L 700.8000, L100.0100, B882-1 ####[facility] [address] [place], [address] Hemoglobin (Bld) [Mass/Vol] 13.0 g/dL Normal 12.0-15.0 [facility] Comment on above: Performed By: #### L 700.8000, L100.0100, B882-1 ####[facility] [address] [place], [address] IG% 0.300 Normal 0.0-0.9 [facility] Comment on above: Result Comment: IG% - Immature Granulocytes (promyelocytes, myelocytes andmetamyelocytes) > 1% indicates that a LEFT SHIFT is Present. Performed By: #### L 700.8000, L100.0100, B882-1 ####[facility] [address] [place], [address] Lymphocytes/100 WBC (Bld) 38.2 % Normal 19-41 [facility] Comment on above: Performed By: #### L 700.8000, L100.0100, B882-1 ####[facility] [address] [place], [address] MCH (RBC) [Entitic mass] 28.7 pg Normal 27.0-32.0 [facility] Comment on above: Performed By: #### L 700.8000, L100.0100, B882-1 ####[facility] [address] [place], [address] MCHC (RBC) [Mass/Vol] 31.9 g/dL Low 32-36 [facility] Comment on above: Performed By: #### L 700.8000, L100.0100, B882-1 ####[facility] [address] [place], [address] MCV (RBC) [Entitic vol] 89.8 fL Normal 81-99 [facility] Comment on above: Performed By: #### L 700.8000, L100.0100, B882-1 ####[facility] [address] [place], [address] Monocytes/100 WBC (Bld) 5.6 % Normal 0-10 [facility] Comment on above: Performed By: #### L 700.8000, L100.0100, B882-1 ####[facility] [address] [place], [address] Neutrophils/100 WBC (Bld) 52.7 % Normal 47-70 [facility] Comment on above: Performed By: #### L 700.8000, L100.0100, B882-1 ####[facility] [address] [place], [address] Nucleated RBC (Bld) [#/Vol] 0 10*3/uL Normal 0-5 [facility] Comment on above: Performed By: #### L 700.8000, L100.0100, B882-1 ####[facility] [address] [place], [address] Platelet mean volume (Bld) [Entitic vol] 11.0 fL Normal 6.2-12.0 [facility] Comment on above: Performed By: #### L 700.8000, L100.0100, B882-1 ####[facility] [address] [place], [address] Platelets (Bld) [#/Vol] 204 10*3/uL Normal 150-450 [facility] Comment on above: Performed By: #### L 700.8000, L100.0100, B882-1 ####[facility] [address] [place], [address] RBC (Bld) [#/Vol] 4.53 10*6/uL Normal 4.2-5.4 [facility] Comment on above: Performed By: #### L 700.8000, L100.0100, B882-1 ####[facility] [address] [place], [address] RDW SD 41.5 fl Normal 35.1-43.9 [facility] Comment on above: Performed By: #### L 700.8000, L100.0100, B882-1 ####[facility] [address] [place], [address] WBC (Bld) [#/Vol] 9.9 10*3/uL Normal 4.4-11.0 [facility] Comment on above: Performed By: #### L 700.8000, L100.0100, B882-1 ####[facility] [address] [place], [address] Comprehensive Metabolic Prof ilon 06-11-2024 Albumin [Mass/Vol] 4.1 g/dL Normal 3.2-5.0 [facility] Comment on above: Performed By: #### L 500.4050 ####[facility] [address] [place], [address] Albumin/Globulin [Mass ratio] 1.2 {ratio} Normal 0.9-2.4 [facility] Comment on above: Performed By: #### L 500.4050 ####[facility] [address] [place], [address] ALK P 64 U/L Normal 45-117 [facility] Comment on above: Performed By: #### L 500.4050 ####[facility] [address] [place], [address] ALT [Catalytic activity/Vol] 24 U/L Normal 13-56 [facility] Comment on above: Performed By: #### L 500.4050 ####[facility] [address] [place], [address] AST [Catalytic activity/Vol] 22 U/L Normal 15-37 [facility] Comment on above: Result Comment: Slig ht Hemolysis, Result may be falsely increased. Performed By: #### L 500.4050 ####[facility] [address] [place], [address] Bilirubin [Mass/Vol] 1.00 mg/dL Normal 0.20-1.00 [facility] Comment on above: Result Comment: For patients on eltrombopag therapy, use of Dimension [employer] [place] TBIL is not recommended. Performed By: #### L 500.4050 ####[facility] [address] [place], [address] BUN/CRE 12.0 RATIO Normal 10-20 [facility] Comment on above: Performed By: #### L 500.4050 ####[facility] [address] [place], [address] CA,Total 9.0 mg/dL Normal 8.5-10.1 [facility] Comment on above: Performed By: #### L 500.4050 ####[facility] [address] [place], [address] Chloride [Moles/Vol] 108 mmol/L High 98-107 [facility] Comment on above: Performed By: #### L 500.4050 ####[facility] [address] [place], [address] CO2 [Moles/Vol] 26.0 mmol/L Normal 21.0-32.0 [facility] Comment on above: Performed By: #### L 500.4050 ####[facility] [address] [place], [address] Creatinine [Mass/Vol] 0.66 mg/dL Normal 0.55-1.02 [facility] Comment on above: Result Comment: The validity of the calculated GFR GFRAA in patients over70 years has not been determined. Clinical correlation isessential. Performed By: #### L 500.4050 ####[facility] [address] [place], [address] ECRCL 139.08 ml/min Normal [facility] Comment on above: Performed By: #### L 500.4050 ####[facility] [address] [place], [address] EST GFR - AA 131 mL/min Normal >60 [facility] Comment on above: Result Comment: Afri can [place] GFR Calc Performed By: #### L 500.4050 ####[facility] [address] [place], [address] GAP 7 Normal 5-15 [facility] Comment on above: Performed By: #### L 500.4050 ####[facility] [address] [place], [address] GFR/1.73 sq M.predicted among non-blacks MDRD (S/P/Bld) [Vol rate/Area] 108 mL/min/{1.73_m2} Normal >60 [facility] Comment on above: Result Comment: Non- GFR Calc Performed By: #### L 500.4050 ####[facility] [address] [place], [address] Globulin (S) [Mass/Vol] 3.5 g/dL Normal 2.2-4.2 [facility] Comment on above: Performed By: #### L 500.4050 ####[facility] [address] [place], [address] Glucose [Mass/Vol] 79 mg/dL Normal 74-106 [facility] Comment on above: Performed By: #### L 500.4050 ####[facility] [address] [place], [address] Potassium [Moles/Vol] 3.9 mmol/L Normal 3.5-5.1 [facility] Comment on above: Result Comment: Slig ht Hemolysis, Result may be falsely increased. Performed By: #### L 500.4050 ####[facility] [address] [place], [address] Sodium [Moles/Vol] 141 mmol/L Normal 136-145 [facility] Comment on above: Performed By: #### L 500.4050 ####[facility] [address] [place], [address] T PROT 7.6 g/dL Normal 6.4-8.2 [facility] Comment on above: Performed By: #### L 500.4050 ####[facility] [address] [place], [address] Urea nitrogen [Mass/Vol] 8 mg/dL Normal 7-18 [facility] Comment on above: Performed By: #### L 500.4050 ####[facility] [address] [place], [address] Emergency Department Summary on 06-11-2024 Emergency Department Summary Normal [facility] ,Serum,hCG Quali.on 06-11-2024 HCG, SERUM QUAL Normal [facility] Comment on above: Result Comment: Blayne elled via OM: Ordered Performed By: #### L 700.6800 ####[facility] [address] [place], [address] INTERNAL QC OK? Normal [facility] Comment on above: Result Comment: Blayne elled via OM: MD Ordered Performed By: #### L 700.6800 ####[facility] [address] [place], [address] RECORD KIT LOT# Normal [facility] Comment on above: Result Comment: Blayne elled via OM: MD Ordered Performed By: #### L 700.6800 ####[facility] [address] [place], [address] Urinalysis, Completeon 06-11 EPI,SQUAMOUS 0-5 SEEN Normal 5-10 [facility] Comment on above: Order Comment: CLEAN CATCH Performed By: #### L 400.0001 ####[facility] [address] [place], [address] WBC 0-5 SEEN Normal 0-5 [facility] Comment on above: Order Comment: CLEAN CATCH Performed By: #### L 400.0001 ####[facility] [address] [place], [address] BACTERIA 0 SEEN Normal None Seen [facility] Comment on above: Order Comment: CLEAN CATCH Performed By: #### L 400.0001 ####[facility] [address] [place], [address] Mucus Ql (Urine sed) 0 SEEN Normal [facility] Comment on above: Order Comment: CLEAN CATCH Performed By: #### L 400.0001 ####[facility] [address] [place], [address] RBC 0 SEEN Normal 0-5 [facility] Comment on above: Order Comment: CLEAN CATCH Performed By: #### L 400.0001 ####[facility] [address] [place], [address] hCG Titer Quant., Serumon HCG QUANT. < 1 Normal 1-3 [facility] Comment on above: Result Comment: hCG levels with Gestational AgeGestational Age hCG mIU/mL (IU/L)0.2 - 1 week 5 - 501-2 weeks 50 - 5002-3 weeks 100 - 64196-3 weeks 500 - 434308-6 weeks 1000 - 960293-2 weeks 99157 - 100,0006-8 weeks 57475 - 200,0002-3 months 37929 - 100,000 Performed By: #### L 700.8000, L100.0100, B882-1 ####[facility] [address] [place], [address] Absolute lymphocyte countOrd ered By: Jagjit Ortega on 03-03-2024 Lymphocytes Auto (Unsp spec) [#/Vol] 2.70 10*3/uL 0.83-4.51 [facility] Automated lymphocyte count a s percentage of total leukocytesOrdered By: Jagjit Ortega on 03-03-2024 Lymphocytes/100 WBC Auto (Unsp spec) 30.4 % 19-41 [facility] Basophil percentageOrdered B y: Jagjit Ortega on 03-03-2024 Basophils/100 WBC (Bld) 0.6 % 0-1 [facility] Chloride [Moles/Vol] 111 mmol/L 98-107 [facility] Eosinophils/100 WBC (Bld) 0.0 % 0-5 [facility] Glucose [Mass/Vol] 100 mg/dL 74-106 [facility] Comment on above: Fasting Glucose resu lt from 100 to 125 mg/dL suggests IMPAIRED HOMEOSTASIS per A.D.A. criteria. Hemoglobin (Bld) [Mass/Vol] 13.1 g/dL 12.0-15.0 [facility] Monocytes/100 WBC (Bld) 5.6 % 0-10 [facility] Neutrophils (Bld) [#/Vol] 5.6 10*3/uL 2.0-7.7 [facility] Neutrophils/100 WBC (Bld) 63.2 % 47-70 [facility] Potassium [Moles/Vol] 3.2 mmol/L 3.5-5.1 [facility] Sodium [Moles/Vol] 142 mmol/L 136-145 [facility] WBC (Bld) [#/Vol] 8.9 10*3/uL 4.4-11.0 [facility] Blood platelet adequacy dete ction by light microscopyOrdered By: Jagjit Ortega on 03-03-2024 Platelets LM Ql (Bld) ADEQUATE ADEQ [facility] Determination of erythrocyte mean corpuscular volume (MCV)Ordered By: Jagjit Ortega on 03-03-2024 MCV (RBC) [Entitic vol] 87.9 fL 81-99 [facility] Erythrocyte distribution wid th ratioOrdered By: Jagjit Ortega on 03-03-2024 Erythrocyte distribution width (RBC) [Ratio] 13.0 % 11.6-14.6 [facility] Erythrocyte distribution wid th standard deviationOrdered By: Jagjit Ortega on 03-03-2024 Erythrocyte distribution width (RBC) [Entitic vol] 41.3 fL 35.1-43.9 [facility] Hematocrit Auto (Bld) [Volum e fraction]Ordered By: Jagjit Ortega on 03-03-2024 Hematocrit (Bld) [Volume fraction] 39.4 % 37-47 [facility] Immature granulocytes/100 WB C Auto (Bld)Ordered By: Jagjit Ortega on 03-03-2024 Immature granulocytes/100 WBC (Bld) 0.200 % 0.0-0.9 [facility] Comment on above: IG% - Immature Granu locytes (promyelocytes, myelocytes and metamyelocytes) > 1% indicates that a LEFT SHIFT is Present. Laboratory - Chemistry and C hemistry - challengeOrdered By: Jagjit Ortega on 03-03-2024 CO2 [Moles/Vol] 27.0 mmol/L 21.0-32.0 [facility] Urea nitrogen/Creatinine [Mass ratio] 8.7 mg/mg 10-20 [facility] Laboratory - Hematology and Cell countsOrdered By: Jagjit Ortega on 03-03-2024 MCH (RBC) [Entitic mass] 29.2 pg 27.0-32.0 [facility] MCHC (RBC) [Mass/Vol] 33.2 g/dL 32-36 [facility] Nucleated RBC/100 WBC (Bld) [Ratio] 0 % 0-5 [facility] Platelet mean volume (Bld) [Entitic vol] 11.5 fL 6.2-12.0 [facility] No Panel InformationOrdered By: Jagjit Ortega on 03-03-2024 Estimated GFR (MDRD) Amer 104 mL/min >60 [facility] Comment on above: GFR Calc Estimated GFR (MDRD) Non-Af Amer 86 mL/min >60 [facility] Comment on above: Non- GFR Calc Platelet Count TNP [facility] Comment on above: Test not performedPl ease note: For this sample, a platelet estimate is provided rather than a platelet count due to platelet clumping. Other parameters associated with this sample are not affected by platelet clumping. If a more accurate platelet count is required, a redraw of the patient will be necessary. RBC Auto (Bld) [#/Vol]Ordere d By: Jagjit Ortega on 03-03-2024 RBC (Bld) [#/Vol] 4.48 10*6/uL 4.2-5.4 [facility] Serum or plasma calcium omega urement (mass/volume)Ordered By: Jagjit Ortega on 03-03-2024 Calcium [Mass/Vol] 9.0 mg/dL 8.5-10.1 [facility] Serum or plasma creatinine m easurement (mass/volume)Ordered By: Jagjit Ortega on 03-03-2024 Creatinine [Mass/Vol] 0.81 mg/dL 0.55-1.02 [facility] Comment on above: The validity of the calculated GFR & GFRAA in patients over 70 years has not been determined. Clinical correlation is essential. Serum or plasma urea nitroge n measurement (mass/volume)Ordered By: Jagjit Ortega on 03-03-2024 Urea nitrogen [Mass/Vol] 7 mg/dL 7-18 [facility] Thin prep Papanicolaou smear with manual screeningOrdered By: Jagjit Ortega on 03-03-2024 Thin prep Papanicolaou smear with manual screening 4 5-15 [facility] Absolute lymphocyte countOrd ered By: Nito Lynnjeremias on 02-22-2024 Lymphocytes Auto (Unsp spec) [#/Vol] 3.30 10*3/uL 0.83-4.51 [facility] Automated lymphocyte count a s percentage of total leukocytesOrdered By: Nito Lynnjeremias on 02-22-2024 Lymphocytes/100 WBC Auto (Unsp spec) 27.5 % 19-41 [facility] Basophil percentageOrdered B y: Nito Nur on 02-22-2024 Basophil percentage 0-5 SEEN /hpf 0-5 [facility] Basophils/100 WBC (Bld) 0.5 % 0-1 [facility] Bilirubin [Mass/Vol] 0.80 mg/dL 0.20-1.00 [facility] Comment on above: For patients on eltr ombopag therapy, use of Dimension [employer] TBIL is not recommended. Chloride [Moles/Vol] 110 mmol/L 98-107 [facility] Eosinophils/100 WBC (Bld) 0.0 % 0-5 [facility] Glucose [Mass/Vol] 85 mg/dL 74-106 [facility] Hemoglobin (Bld) [Mass/Vol] 13.7 g/dL 12.0-15.0 [facility] Monocytes/100 WBC (Bld) 6.2 % 0-10 [facility] Neutrophils (Bld) [#/Vol] 7.9 10*3/uL 2.0-7.7 [facility] Neutrophils/100 WBC (Bld) 65.4 % 47-70 [facility] Potassium [Moles/Vol] 2.9 mmol/L 3.5-5.1 [facility] Protein [Mass/Vol] 8.0 g/dL 6.4-8.2 [facility] Sodium [Moles/Vol] 140 mmol/L 136-145 [facility] WBC (Bld) [#/Vol] 12.0 10*3/uL 4.4-11.0 [facility] Bilirubin Test strip Ql (U)O rdered By: Nito Nur on 02-22-2024 Bilirubin Ql (U) Negative Negative [facility] Determination of erythrocyte mean corpuscular volume (MCV)Ordered By: Nito Nur on 02-22-2024 MCV (RBC) [Entitic vol] 87.2 fL 81-99 [facility] Erythrocyte distribution wid th ratioOrdered By: Nito Nur on 02-22-2024 Erythrocyte distribution width (RBC) [Ratio] 13.0 % 11.6-14.6 [facility] Erythrocyte distribution wid th standard deviationOrdered By: Nito Nur on 02-22-2024 Erythrocyte distribution width (RBC) [Entitic vol] 40.6 fL 35.1-43.9 [facility] Hematocrit Auto (Bld) [Volum e fraction]Ordered By: Nito Nur on 02-22-2024 Hematocrit (Bld) [Volume fraction] 41.4 % 37-47 [facility] Immature granulocytes/100 WB C Auto (Bld)Ordered By: Nito Nur on 02-22-2024 Immature granulocytes/100 WBC (Bld) 0.400 % 0.0-0.9 [facility] Comment on above: IG% - Immature Granu locytes (promyelocytes, myelocytes and metamyelocytes) > 1% indicates that a LEFT SHIFT is Present. Ketones Test strip Ql (U)Ord ered By: Nito Nur on 02-22-2024 Ketones Ql (U) Negative Negative [facility] Laboratory - Chemistry and C hemistry - challengeOrdered By: Nito Nur on 02-22-2024 Albumin/Globulin [Mass ratio] 1.1 {ratio} 0.9-2.4 [facility] ALP [Catalytic activity/Vol] 67 U/L 45-117 [facility] ALT [Catalytic activity/Vol] 19 U/L 13-56 [facility] CO2 [Moles/Vol] 24.0 mmol/L 21.0-32.0 [facility] Globulin (S) [Mass/Vol] 3.9 g/dL 2.2-4.2 [facility] Magnesium [Mass/Vol] 2.1 mg/dL 1.6-2.6 [facility] Urea nitrogen/Creatinine [Mass ratio] 10.5 mg/mg 10-20 [facility] - Hematology and Cell countsOrdered By: Nito Nur on 02-22-2024 MCH (RBC) [Entitic mass] 28.8 pg 27.0-32.0 [facility] MCHC (RBC) [Mass/Vol] 33.1 g/dL 32-36 [facility] Nucleated RBC/100 WBC (Bld) [Ratio] 0 % 0-5 [facility] Platelet mean volume (Bld) [Entitic vol] 10.3 fL 6.2-12.0 [facility] Platelets (Bld) [#/Vol] 280 10*3/uL 150-450 [facility] Mucus LM Ql (Urine sed)Order ed By: Nito Nur on 02-22-2024 Mucus Ql (Urine sed) RARE /hpf [facility] Nitrite Test strip Ql (U)Ord ered By: Nito Nur on 02-22-2024 Nitrite Ql (U) Negative Negative [facility] No Panel InformationOrdered By: Nito Nur on 02-22-2024 Urine RBC 0-5 SEEN /hpf 0-5 [facility] Estimated Creatinine Clearance Calc 114.66 ml/min [facility] Estimated GFR (MDRD) Amer 97 mL/min >60 [facility] Comment on above: GFR Calc Estimated GFR (MDRD) Non-Af Amer 81 mL/min >60 [facility] Comment on above: Non- GFR Calc Protein Test strip Ql (U)Ord ered By: Nito Nur on 02-22-2024 Protein Ql (U) 30 mg/dl Negative [facility] RBC Auto (Bld) [#/Vol]Ordere d By: Nito Nur on 02-22-2024 RBC (Bld) [#/Vol] 4.75 10*6/uL 4.2-5.4 [facility] Serum or plasma calcium omega urement (mass/volume)Ordered By: Nito Nur on 02-22-2024 Calcium [Mass/Vol] 9.2 mg/dL 8.5-10.1 [facility] Serum or plasma choriogonado tropin detectionOrdered By: Nito Nur on 02-22-2024 HCG ( test) Ql Negative [facility] Serum or plasma creatinine m easurement (mass/volume)Ordered By: Nito Nur on 02-22-2024 Creatinine [Mass/Vol] 0.86 mg/dL 0.55-1.02 [facility] Comment on above: The validity of the calculated GFR & GFRAA in patients over 70 years has not been determined. Clinical correlation is essential. Serum or plasma urea nitroge n measurement (mass/volume)Ordered By: Nito Nur on 02-22-2024 Urea nitrogen [Mass/Vol] 9 mg/dL 7-18 [facility] Squamous epithelial cells de tection in urine sediment by light microscopyOrdered By: Nito Nur on 02-22-2024 Epithelial cells.squamous LM Ql (Urine sed) 0-5 SEEN /hpf 5-10 [facility] Thin prep Papanicolaou smear with manual screeningOrdered By: Nito Nur on 02-22-2024 Thin prep Papanicolaou smear with manual screening 4.1 g/dL 3.2-5.0 [facility] Thin prep Papanicolaou smear with manual screening 21 U/L 15-37 [facility] Thin prep Papanicolaou smear with manual screening 6 5-15 [facility] Urine blood detectionOrdered By: Nito Nur on 02-22-2024 RBC Ql (U) 10 /ul Negative [facility] Urine clarityOrdered By: Kayla Nur on 02-22-2024 Clarity (U) Clear Clear [facility] Urine color determinationOrd ered By: Nito Nur on 02-22-2024 Color (U) Yellow Yellow [facility] Urine glucose detectionOrder ed By: Nito Nur on 02-22-2024 Glucose Ql (U) Normal mg/dl Normal [facility] Urine leukocyte esterase det ection by dipstickOrdered By: Nito Nur on 02-22-2024 Leukocyte esterase Test strip Ql (U) 100 /ul Negative [facility] Urine pHOrdered By: Nito ramon on 02-22-2024 pH (U) 5.0 [pH] 5.0 - 8.0 [facility] Urine sediment bacteria coun t by microscopy (number/high power field)Ordered By: Nito Nur on 02-22-2024 Bacteria LM.HPF (Urine sed) [#/Area] RARE /hpf None Seen [facility] Urine specific gravity measu rementOrdered By: Nito Nur on 02-22-2024 Specific gravity (U) [Rel density] 1.020 1.002-1.030 [facility] Urine urobilinogen measureme ntOrdered By: Nito Gipsonangel on 02-22-2024 Urobilinogen Ql (U) Normal mg/dl Normal [facility] Absolute lymphocyte countOrd ered By: Jose Wynn on 12-05-2023 Lymphocytes Auto (Unsp spec) [#/Vol] 2.78 10*3/uL 0.83-4.51 [facility] Automated lymphocyte count a s percentage of total leukocytesOrdered By: Jose Wynn on 12-05-2023 Lymphocytes/100 WBC Auto (Unsp spec) 34.2 % 19-41 [facility] Basophil percentageOrdered B y: Jose Wynn on 12-05-2023 Basophil percentage 0-5 SEEN /hpf 0-5 [facility] Basophils/100 WBC (Bld) 0.7 % 0-1 [facility] Chloride [Moles/Vol] 112 mmol/L 98-107 [facility] Eosinophils/100 WBC (Bld) 5.8 % 0-5 [facility] Glucose [Mass/Vol] 107 mg/dL 74-106 [facility] Comment on above: Fasting Glucose resu lt from 100 to 125 mg/dL suggests IMPAIRED HOMEOSTASIS per A.D.A. criteria. Hemoglobin (Bld) [Mass/Vol] 12.9 g/dL 12.0-15.0 [facility] Monocytes/100 WBC (Bld) 5.3 % 0-10 [facility] Neutrophils (Bld) [#/Vol] 4.4 10*3/uL 2.0-7.7 [facility] Neutrophils/100 WBC (Bld) 53.8 % 47-70 [facility] Potassium [Moles/Vol] 3.3 mmol/L 3.5-5.1 [facility] Sodium [Moles/Vol] 142 mmol/L 136-145 [facility] WBC (Bld) [#/Vol] 8.1 10*3/uL 4.4-11.0 [facility] Bilirubin Test strip Ql (U)O rdered By: Jose Wynn on 12-05-2023 Bilirubin Ql (U) Negative Negative [facility] Determination of erythrocyte mean corpuscular volume (MCV)Ordered By: Jose Wynn on 12-05-2023 MCV (RBC) [Entitic vol] 86.4 fL 81-99 [facility] Erythrocyte distribution wid th ratioOrdered By: Jose Wynn on 12-05-2023 Erythrocyte distribution width (RBC) [Ratio] 13.3 % 11.6-14.6 [facility] Erythrocyte distribution wid th standard deviationOrdered By: Jose Wynn on 12-05-2023 Erythrocyte distribution width (RBC) [Entitic vol] 41.4 fL 35.1-43.9 [facility] Hematocrit Auto (Bld) [Volum e fraction]Ordered By: Jose Wynn on 12-05-2023 Hematocrit (Bld) [Volume fraction] 39.9 % 37-47 [facility] Immature granulocytes/100 WB C Auto (Bld)Ordered By: Jose Wynn on 12-05-2023 Immature granulocytes/100 WBC (Bld) 0.200 % 0.0-0.9 [facility] Comment on above: IG% - Immature Granu locytes (promyelocytes, myelocytes and metamyelocytes) > 1% indicates that a LEFT SHIFT is Present. Ketones Test strip Ql (U)Ord ered By: Jose Wynn on 12-05-2023 Ketones Ql (U) 5 mg/dl Negative [facility] - Chemistry and C hemistry - challengeOrdered By: Jose Wynn on 12-05-2023 CO2 [Moles/Vol] 25.0 mmol/L 21.0-32.0 [facility] Urea nitrogen/Creatinine [Mass ratio] 8.3 mg/mg 10-20 [facility] - Hematology and Cell countsOrdered By: Jose Wynn on 12-05-2023 MCH (RBC) [Entitic mass] 27.9 pg 27.0-32.0 [facility] MCHC (RBC) [Mass/Vol] 32.3 g/dL 32-36 [facility] Nucleated RBC/100 WBC (Bld) [Ratio] 0 % 0-5 [facility] Platelets (Bld) [#/Vol] 281 10*3/uL 150-450 [facility] Mucus LM Ql (Urine sed)Order ed By: Jose Wynn on 01-31-2024 Mucus Ql (Urine sed) 2+ /hpf [facility] Nitrite Test strip Ql (U)Ord ered By: Jose Wynn on 12-05-2023 Nitrite Ql (U) Negative Negative [facility] No Panel InformationOrdered By: Jose Wynn on 12-05-2023 Urine RBC 0-5 SEEN /hpf 0-5 [facility] Estimated Creatinine Clearance Calc 123.09 ml/min [facility] Estimated GFR (MDRD) Amer 99 mL/min >60 [facility] Comment on above: GFR Calc Estimated GFR (MDRD) Non-Af Amer 82 mL/min >60 [facility] Comment on above: Non- GFR Calc Platelet mean volume Ryan-Ec ker (Bld) [Entitic vol]Ordered By: Jose Wynn on 12-05-2023 Platelet mean volume (Bld) [Entitic vol] 10.3 fL 6.2-12.0 [facility] Protein Test strip Ql (U)Ord ered By: Jose Wynn on 12-05-2023 Protein Ql (U) 30 mg/dl Negative [facility] RBC Auto (Bld) [#/Vol]Ordere d By: Jose Wynn on 12-05-2023 RBC (Bld) [#/Vol] 4.62 10*6/uL 4.2-5.4 [facility] Serum or plasma calcium omega urement (mass/volume)Ordered By: Jose Wynn on 12-05-2023 Calcium [Mass/Vol] 9.1 mg/dL 8.5-10.1 [facility] Serum or plasma choriogonado tropin detectionOrdered By: Jose Wynn on 12-05-2023 HCG ( test) Ql Negative [facility] Serum or plasma creatinine m easurement (mass/volume)Ordered By: Jose Wynn on 12-05-2023 Creatinine [Mass/Vol] 0.84 mg/dL 0.55-1.02 [facility] Comment on above: The validity of the calculated GFR & GFRAA in patients over 70 years has not been determined. Clinical correlation is essential. Serum or plasma urea nitroge n measurement (mass/volume)Ordered By: Jose Wynn on 12-05-2023 Urea nitrogen [Mass/Vol] 7 mg/dL 7-18 [facility] Squamous epithelial cells de tection in urine sediment by light microscopyOrdered By: Jose Wynn on 12-05-2023 Epithelial cells.squamous LM Ql (Urine sed) 5-10 SEEN /hpf 5-10 [facility] Thin prep Papanicolaou smear with manual screeningOrdered By: Jose Wynn on 12-05-2023 Thin prep Papanicolaou smear with manual screening 5 5-15 [facility] Urine blood detectionOrdered By: Jose Wynn on 12-05-2023 RBC Ql (U) 10 /ul Negative [facility] Urine clarityOrdered By: Ksenia Wynn on 12-05-2023 Clarity (U) Cloudy Clear [facility] Urine color determinationOrd ered By: Jose Wynn on 12-05-2023 Color (U) Yellow Yellow [facility] Urine glucose detectionOrder ed By: Jose Wynn on 12-05-2023 Glucose Ql (U) Normal mg/dl Normal [facility] Urine leukocyte esterase det ection by dipstickOrdered By: Jose Wynn on 12-05-2023 Leukocyte esterase Test strip Ql (U) 25 /ul Negative [facility] Urine pHOrdered By: Jose Aguilar gur on 12-05-2023 pH (U) 6.0 [pH] 5.0 - 8.0 [facility] Urine sediment bacteria coun t by microscopy (number/high power field)Ordered By: Jose Wynn on 12-05-2023 Bacteria LM.HPF (Urine sed) [#/Area] 1 /[HPF] None Seen [facility] Urine specific gravity measu rementOrdered By: Jose Wynn on 12-05-2023 Specific gravity (U) [Rel density] 1.020 1.002-1.030 [facility] Urine urobilinogen measureme ntOrdered By: Jose Wynn on 12-05-2023 Urobilinogen Ql (U) 1 mg/dl Normal [facility] Absolute lymphocyte countOrd ered By: Jose Wynn on 11-17-2023 Lymphocytes Auto (Unsp spec) [#/Vol] 2.52 10*3/uL 0.83-4.51 [facility] Basophil percentageOrdered B y: Jose Wynn on 11-17-2023 Basophils/100 WBC (Bld) 0.9 % 0-1 [facility] Bilirubin [Mass/Vol] 0.60 mg/dL 0.20-1.00 [facility] Comment on above: For patients on eltr ombopag therapy, use of Dimension [employer] TBIL is not recommended. Chloride [Moles/Vol] 110 mmol/L 98-107 [facility] Eosinophils/100 WBC (Bld) 0.1 % 0-5 [facility] Glucose [Mass/Vol] 103 mg/dL 74-106 [facility] Comment on above: Fasting Glucose resu lt from 100 to 125 mg/dL suggests IMPAIRED HOMEOSTASIS per A.D.A. criteria. Neutrophils (Bld) [#/Vol] 5.2 10*3/uL 2.0-7.7 [facility] Neutrophils/100 WBC (Bld) 63.4 % 47-70 [facility] Potassium [Moles/Vol] 3.2 mmol/L 3.5-5.1 [facility] Protein [Mass/Vol] 7.9 g/dL 6.4-8.2 [facility] Sodium [Moles/Vol] 141 mmol/L 136-145 [facility] WBC (Bld) [#/Vol] 8.2 10*3/uL 4.4-11.0 [facility] Beta hCG serum qualOrdered B y: Jose Wynn on 11-17-2023 Beta HCG ( test) Ql Negative [facility] Blood erythrocytes count (nu mber/volume)Ordered By: Jose Wynn on 11-17-2023 RBC (Bld) [#/Vol] 4.99 10*6/uL 4.2-5.4 [facility] Blood hemoglobin measurement (mass/volume)Ordered By: Jose Wynn on 11-17-2023 Hemoglobin (Bld) [Mass/Vol] 14.0 g/dL 12.0-15.0 [facility] Blood lymphocytes/100 leukoc ytesOrdered By: Jose Wynn on 11-17-2023 Lymphocytes/100 WBC (Bld) 30.6 % 19-41 [facility] Blood monocytes/100 leukocyt esOrdered By: Jose Wynn on 11-17-2023 Monocytes/100 WBC (Bld) 4.6 % 0-10 [facility] Blood platelet mean volumeOr dered By: [facility] on 11-17-2023 Platelet mean volume (Bld) [Entitic vol] 10.5 fL 6.2-12.0 [facility] Determination of erythrocyte mean corpuscular volume (MCV)Ordered By: [facility] on 11-17-2023 MCV (RBC) [Entitic vol] 86.4 fL 81-99 [facility] Hematocrit Auto (Bld) [Volum e fraction][facility]23 Hematocrit (Bld) [Volume fraction] 43.1 % 37-47 [facility] - Chemistry and C hemistry - challengeOrdered By: [facility] 11-17-2023 ALP [Catalytic activity/Vol] 85 U/L 45-117 [facility] ALT [Catalytic activity/Vol] 39 U/L 13-56 [facility] CO2 [Moles/Vol] 25.0 mmol/L 21.0-32.0 [facility] Globulin (S) [Mass/Vol] 4.0 g/dL 2.2-4.2 [facility] Lipase [Catalytic activity/Vol] 26 U/L 13-75 [facility] Comment on above: Please note:LIPASE r evised reference range effective 23. New Lipase methodology. Expected to produce lower values than the previous assay method. NEW Reference Range: 13 - 75 U/L Urea nitrogen/Creatinine [Mass ratio] 8.7 mg/mg 10-20 [facility] - Hematology and Cell countsOrdered By: Morgan Tianna on 11-17-2023 Erythrocyte distribution width (RBC) [Entitic vol] 42.1 fL 35.1-43.9 [facility] Erythrocyte distribution width (RBC) [Ratio] 13.5 % 11.6-14.6 [facility] Immature granulocytes/100 WBC (Bld) 0.400 % 0.0-0.9 [facility] Comment on above: IG% - Immature Granu locytes (promyelocytes, myelocytes and metamyelocytes) > 1% indicates that a LEFT SHIFT is Present. MCH (RBC) [Entitic mass] 28.1 pg 27.0-32.0 [facility] Nucleated RBC/100 [facility] (Bld) [[facility]] 0 [facility] [Mass/Vol]Or dered By: Jose Wynn on 11-17-2023 MCHC (RBC) [Mass/Vol] 32.5 g/dL 32-36 [facility] No Panel InformationOrdered By: Jose Wynn on 11-17-2023 Estimated Creatinine Clearance Calc 116.73 ml/min [facility] Estimated GFR (MDRD) Amer 90 mL/min >60 [facility] Comment on above: GFR Calc Estimated GFR (MDRD) Non-Af Amer 74 mL/min >60 [facility] Comment on above: Non- GFR Calc Ethyl Alcohol Level < 3.0 mg/dL [facility] Comment on above: The serum:whole bloo d ethanol ratio is approximately 1.14and varies slightly with hematocrit. Medical Alcohol reference interval and critical value innon-tolerant individuals; 50 - 100 Impairment 100 Intoxication 100 - 250 Severe Poisoning 250 - 400 Deep/possible fatal coma Platelets bldOrdered By: Ksenia Wynn on 11-17-2023 Platelets (Bld) [#/Vol] 263 10*3/uL 150-450 [facility] Serum or plasma albumin omega urement (mass/volume)Ordered By: Jose Wynn on 11-17-2023 Albumin [Mass/Vol] 3.9 g/dL 3.2-5.0 [facility] Serum or plasma albumin/glob ulin mass ratioOrdered By: Jose Wynn on 11-17-2023 Albumin/Globulin [Mass ratio] 1.0 {ratio} 0.9-2.4 [facility] Serum or plasma calcium omega urement (mass/volume)Ordered By: Jose Wynn on 11-17-2023 Calcium [Mass/Vol] 9.6 mg/dL 8.5-10.1 [facility] Serum or plasma creatinine m easurement (mass/volume)Ordered By: Jose Wynn on 11-17-2023 Creatinine [Mass/Vol] 0.92 mg/dL 0.55-1.02 [facility] Comment on above: The validity of the calculated GFR & GFRAA in patients over 70 years has not been determined. Clinical correlation is essential. Serum or plasma urea nitroge n measurement (mass/volume)Ordered By: Jose Wynn on 11-17-2023 Urea nitrogen [Mass/Vol] 8 mg/dL 7-18 [facility] Thin prep Papanicolaou smear with manual screeningOrdered By: Jose Wynn on 11-17-2023 Thin prep Papanicolaou smear with manual screening 24 U/L 15-37 [facility] Thin prep Papanicolaou smear with manual screening 6 5-15 [facility] Absolute lymphocyte countOrd ered By: Garrett Brooks on 10-25-2023 Lymphocytes Auto (Unsp spec) [#/Vol] 2.95 10*3/uL 0.83-4.51 [facility] Basophil percentageOrdered B y: Garrett Brooks on 10-25-2023 Basophil percentage 0-5 SEEN /hpf 0-5 [facility] Basophils/100 WBC (Bld) 0.6 % 0-1 [facility] Bilirubin [Mass/Vol] 0.70 mg/dL 0.20-1.00 [facility] Comment on above: For patients on eltr ombopag therapy, use of Dimension [employer] TBIL is not recommended. Chloride [Moles/Vol] 108 mmol/L 98-107 [facility] Eosinophils/100 WBC (Bld) 4.8 % 0-5 [facility] Glucose [Mass/Vol] 119 mg/dL 74-106 [facility] Comment on above: Fasting Glucose resu lt from 100 to 125 mg/dL suggests IMPAIRED HOMEOSTASIS per A.D.A. criteria. Neutrophils (Bld) [#/Vol] 4.6 10*3/uL 2.0-7.7 [facility] Neutrophils/100 WBC (Bld) 53.6 % 47-70 [facility] Potassium [Moles/Vol] 3.6 mmol/L 3.5-5.1 [facility] Protein [Mass/Vol] 7.7 g/dL 6.4-8.2 [facility] Sodium [Moles/Vol] 141 mmol/L 136-145 [facility] WBC (Bld) [#/Vol] 8.6 10*3/uL 4.4-11.0 [facility] Beta hCG serum qualOrdered B y: Garrett Brooks on 10-25-2023 Beta HCG ( test) Ql Negative [facility] Bilirubin Test strip Ql (U)O rdered By: Garrett Brooks on 10-25-2023 Bilirubin Ql (U) Negative Negative [facility] Blood erythrocytes count (nu mber/volume)Ordered By: Garrett Brooks on 10-25-2023 RBC (Bld) [#/Vol] 4.69 10*6/uL 4.2-5.4 [facility] Blood hemoglobin measurement (mass/volume)Ordered By: Garrett Brooks on 10-25-2023 Hemoglobin (Bld) [Mass/Vol] 13.1 g/dL 12.0-15.0 [facility] Blood lymphocytes/100 leukoc ytesOrdered By: Garrett Brooks on 10-25-2023 Lymphocytes/100 WBC (Bld) 34.3 % 19-41 [facility] Blood monocytes/100 leukocyt esOrdered By: Garrett Brooks on 10-25-2023 Monocytes/100 WBC (Bld) 6.5 % 0-10 [facility] Blood platelet mean volumeOr dered By: Garrett Brooks on 10-25-2023 Platelet mean volume (Bld) [Entitic vol] 10.2 fL 6.2-12.0 [facility] Determination of erythrocyte mean corpuscular volume (MCV)Ordered By: Garrett Brooks on 10-25-2023 MCV (RBC) [Entitic vol] 87.0 fL 81-99 [facility] Hematocrit Auto (Bld) [Volum e fraction]Ordered By: Grarett Brooks on 10-25-2023 Hematocrit (Bld) [Volume fraction] 40.8 % 37-47 [facility] Ketones Test strip Ql (U)Ord ered By: Garrett Brooks on 10-25-2023 Ketones Ql (U) Negative Negative [facility] - Chemistry and C hemistry - challengeOrdered By: Garrett Brooks on 10-25-2023 ALP [Catalytic activity/Vol] 81 U/L 45-117 [facility] ALT [Catalytic activity/Vol] 22 U/L 13-56 [facility] CO2 [Moles/Vol] 26.0 mmol/L 21.0-32.0 [facility] Globulin (S) [Mass/Vol] 4.0 g/dL 2.2-4.2 [facility] Lipase [Catalytic activity/Vol] 22 U/L 13-75 [facility] Comment on above: Please note:LIPASE r evised reference range effective 23. New Lipase methodology. Expected to produce lower values than the previous assay method. NEW Reference Range: 13 - 75 U/L Urea nitrogen/Creatinine [Mass ratio] 7.2 mg/mg 10-20 [facility] - Hematology and Cell countsOrdered By: Garrett Brooks on 10-25-2023 Erythrocyte distribution width (RBC) [Entitic vol] 41.5 fL 35.1-43.9 [facility] Erythrocyte distribution width (RBC) [Ratio] 13.3 % 11.6-14.6 [facility] Immature granulocytes/100 WBC (Bld) 0.200 % 0.0-0.9 [facility] Comment on above: IG% - Immature Granu locytes (promyelocytes, myelocytes and metamyelocytes) > 1% indicates that a LEFT SHIFT is Present. MCH (RBC) [Entitic mass] 27.9 pg 27.0-32.0 [facility] Nucleated RBC/100 WBC (Bld) [Ratio] 0 % 0-5 [facility] MCHC Auto (RBC) [Mass/Vol]Or dered By: Garrett Brooks on 10-25-2023 MCHC (RBC) [Mass/Vol] 32.1 g/dL 32-36 [facility] Mucus LM Ql (Urine sed)Order ed By: Garrett Brooks on 10-25-2023 Mucus Ql (Urine sed) 0 SEEN /hpf [facility] Nitrite Test strip Ql (U)Ord ered By: Garrett Brooks on 10-25-2023 Nitrite Ql (U) Negative Negative [facility] No Panel InformationOrdered By: Garrett Brooks on 10-25-2023 Estimated Creatinine Clearance Calc 81.49 ml/min [facility] Estimated GFR (MDRD) Amer 100 mL/min >60 [facility] Comment on above: GFR Calc Estimated GFR (MDRD) Non-Af Amer 82 mL/min >60 [facility] Comment on above: Non- GFR Calc Platelets bldOrdered By: Anirudh Brooks on 10-25-2023 Platelets (Bld) [#/Vol] 257 10*3/uL 150-450 [facility] Protein Test strip Ql (U)Ord ered By: Garrett Brooks on 10-25-2023 Protein Ql (U) 15 mg/dl Negative [facility] Serum or plasma albumin omega urement (mass/volume)Ordered By: Garrett Brooks on 10-25-2023 Albumin [Mass/Vol] 3.7 g/dL 3.2-5.0 [facility] Serum or plasma albumin/glob ulin mass ratioOrdered By: Garrett Brooks on 10-25-2023 Albumin/Globulin [Mass ratio] 0.9 {ratio} 0.9-2.4 [facility] Serum or plasma calcium omega urement (mass/volume)Ordered By: Garrett Brooks on 10-25-2023 Calcium [Mass/Vol] 9.4 mg/dL 8.5-10.1 [facility] Serum or plasma creatinine m easurement (mass/volume)Ordered By: Garrett Brooks on 10-25-2023 Creatinine [Mass/Vol] 0.84 mg/dL 0.55-1.02 [facility] Comment on above: The validity of the calculated GFR & GFRAA in patients over 70 years has not been determined. Clinical correlation is essential. Serum or plasma urea nitroge n measurement (mass/volume)Ordered By: Garrett Brooks on 10-25-2023 Urea nitrogen [Mass/Vol] 6 mg/dL 7-18 [facility] Squamous epithelial cells de tection in urine sediment by light microscopyOrdered By: Garrett Brooks on 10-25-2023 Epithelial cells.squamous LM Ql (Urine sed) 0-5 SEEN /hpf 5-10 [facility] Thin prep Papanicolaou smear with manual screeningOrdered By: Garrett Brooks on 10-25-2023 Thin prep Papanicolaou smear with manual screening 14 U/L 15-37 [facility] Thin prep Papanicolaou smear with manual screening 7 5-15 [facility] Urine blood detectionOrdered By: Garrett Brooks on 10-25-2023 RBC Ql (U) Negative Negative [facility] RBC Ql (U) 0 SEEN /hpf 0-5 [facility] Urine clarityOrdered By: Anirudh Brooks on 10-25-2023 Clarity (U) Clear Clear [facility] Urine color determinationOrd ered By: Garrett Brooks on 10-25-2023 Color (U) Yellow Yellow [facility] Urine glucose detectionOrder ed By: Garrett Brooks on 10-25-2023 Glucose Ql (U) Normal mg/dl Normal [facility] Urine leukocyte esterase det ection by dipstickOrdered By: Garrett Brooks on 10-25-2023 Leukocyte esterase Test strip Ql (U) Negative Negative [facility] Urine pHOrdered By: Garrett montano on 10-25-2023 pH (U) 7.0 [pH] 5.0 - 8.0 [facility] Urine sediment bacteria coun t by microscopy (number/high power field)Ordered By: Garrett Brooks on 10-25-2023 Bacteria LM.HPF (Urine sed) [#/Area] 0 /[HPF] None Seen [facility] Urine specific gravity measu rementOrdered By: Garrett Brooks on 10-25-2023 Specific gravity (U) [Rel density] 1.015 1.002-1.030 [facility] Urobilinogen Auto test strip Ql (U)Ordered By: Garrett Brooks on 10-25-2023 Urobilinogen Ql (U) Normal mg/dl Normal [facility] Absolute lymphocyte countOrd ered By: Agustín Estrada on 09-05-2023 Lymphocytes Auto (Unsp spec) [#/Vol] 3.03 10*3/uL 0.83-4.51 [facility] Basophil percentageOrdered B y: Agustín Estrada on 09-05-2023 Basophil percentage 0-5 SEEN /hpf 0-5 [facility] Basophils/100 WBC (Bld) 0.7 % 0-1 [facility] Bilirubin [Mass/Vol] 0.60 mg/dL 0.20-1.00 [facility] Comment on above: For patients on eltr ombopag therapy, use of Dimension [employer] TBIL is not recommended. Chloride [Moles/Vol] 109 mmol/L 98-107 [facility] Eosinophils/100 WBC (Bld) 0.0 % 0-5 [facility] Glucose [Mass/Vol] 102 mg/dL 74-106 [facility] Comment on above: Fasting Glucose resu lt from 100 to 125 mg/dL suggests IMPAIRED HOMEOSTASIS per A.D.A. criteria. Neutrophils (Bld) [#/Vol] 5.1 10*3/uL 2.0-7.7 [facility] Neutrophils/100 WBC (Bld) 58.4 % 47-70 [facility] Potassium [Moles/Vol] 3.8 mmol/L 3.5-5.1 [facility] Protein [Mass/Vol] 7.7 g/dL 6.4-8.2 [facility] Sodium [Moles/Vol] 138 mmol/L 136-145 [facility] WBC (Bld) [#/Vol] 8.7 10*3/uL 4.4-11.0 [facility] Beta hCG serum qualOrdered B y: Agustín Estrada on 09-05-2023 Beta HCG ( test) Ql Negative [facility] Bilirubin Test strip Ql (U)O rdered By: Agustín Estrada on 09-05-2023 Bilirubin Ql (U) Negative Negative [facility] Blood erythrocytes count (nu mber/volume)Ordered By: Agustín Estrada on 09-05-2023 RBC (Bld) [#/Vol] 4.61 10*6/uL 4.2-5.4 [facility] Blood hemoglobin measurement (mass/volume)Ordered By: Agustín Estrada on 09-05-2023 Hemoglobin (Bld) [Mass/Vol] 12.7 g/dL 12.0-15.0 [facility] Blood lymphocytes/100 leukoc ytesOrdered By: Agustín Estrada on 09-05-2023 Lymphocytes/100 WBC (Bld) 34.9 % 19-41 [facility] Blood monocytes/100 leukocyt esOrdered By: Agustín Estrada on 09-05-2023 Monocytes/100 WBC (Bld) 5.7 % 0-10 [facility] Blood platelet mean volumeOr dered By: Agustín Estrada on 09-05-2023 Platelet mean volume (Bld) [Entitic vol] 9.6 fL 6.2-12.0 [facility] Determination of erythrocyte mean corpuscular volume (MCV)Ordered By: Agustín Estrada on 09-05-2023 MCV (RBC) [Entitic vol] 87.6 fL 81-99 [facility] Hematocrit Auto (Bld) [Volum e fraction]Ordered By: Agustín Estrada on 09-05-2023 Hematocrit (Bld) [Volume fraction] 40.4 % 37-47 [facility] Ketones Test strip Ql (U)Ord ered By: Agustín Estrada on 09-05-2023 Ketones Ql (U) Negative Negative [facility] - Chemistry and C hemistry - challengeOrdered By: Agustín Estrada on 09-05-2023 ALP [Catalytic activity/Vol] 77 U/L 45-117 [facility] ALT [Catalytic activity/Vol] 21 U/L 13-56 [facility] CO2 [Moles/Vol] 24.0 mmol/L 21.0-32.0 [facility] Globulin (S) [Mass/Vol] 4.2 g/dL 2.2-4.2 [facility] Lipase [Catalytic activity/Vol] 22 U/L 13-75 [facility] Comment on above: Please note:LIPASE r evised reference range effective 23. New Lipase methodology. Expected to produce lower values than the previous assay method. NEW Reference Range: 13 - 75 U/L Urea nitrogen/Creatinine [Mass ratio] 10.4 mg/mg 10-20 [facility] - Hematology and Cell countsOrdered By: Agustín Estrada on 09-05-2023 Erythrocyte distribution width (RBC) [Entitic vol] 42.2 fL 35.1-43.9 [facility] Erythrocyte distribution width (RBC) [Ratio] 13.2 % 11.6-14.6 [facility] Immature granulocytes/100 WBC (Bld) 0.300 % 0.0-0.9 [facility] Comment on above: IG% - Immature Granu locytes (promyelocytes, myelocytes and metamyelocytes) > 1% indicates that a LEFT SHIFT is Present. MCH (RBC) [Entitic mass] 27.5 pg 27.0-32.0 [facility] Nucleated RBC/100 WBC (Bld) [Ratio] 0 % 0-5 [facility] MCHC Auto (RBC) [Mass/Vol]Or dered By: Agustín Estrada on 09-05-2023 MCHC (RBC) [Mass/Vol] 31.4 g/dL 32-36 [facility] Mucus LM Ql (Urine sed)Order ed By: Agustín Estrada on 09-05-2023 Mucus Ql (Urine sed) 0 SEEN /hpf [facility] Nitrite Test strip Ql (U)Ord ered By: Agustín Estrada on 09-05-2023 Nitrite Ql (U) Negative Negative [facility] No Panel InformationOrdered By: Agustín Estrada on 09-05-2023 Urine Transitional Epithelial Cells 0-5 SEEN /hpf 0-5 [facility] Estimated Creatinine Clearance Calc 79.59 ml/min [facility] Estimated GFR (MDRD) Amer 96 mL/min >60 [facility] Comment on above: GFR Calc Estimated GFR (MDRD) Non-Af Amer 80 mL/min >60 [facility] Comment on above: Non- GFR Calc Platelets bldOrdered By: Austyn Etsrada on 09-05-2023 Platelets (Bld) [#/Vol] 296 10*3/uL 150-450 [facility] Protein Test strip Ql (U)Ord ered By: Agustín Estrada on 09-05-2023 Protein Ql (U) 15 mg/dl Negative [facility] Serum or plasma albumin omega urement (mass/volume)Ordered By: Agustín Estrada on 09-05-2023 Albumin [Mass/Vol] 3.5 g/dL 3.2-5.0 [facility] Serum or plasma albumin/glob ulin mass ratioOrdered By: Agustín Estrada on 09-05-2023 Albumin/Globulin [Mass ratio] 0.8 {ratio} 0.9-2.4 [facility] Serum or plasma calcium omega urement (mass/volume)Ordered By: Agustín Estrada on 09-05-2023 Calcium [Mass/Vol] 9.0 mg/dL 8.5-10.1 [facility] Serum or plasma creatinine m easurement (mass/volume)Ordered By: Agustín Estrada on 09-05-2023 Creatinine [Mass/Vol] 0.86 mg/dL 0.55-1.02 [facility] Comment on above: The validity of the calculated GFR & GFRAA in patients over 70 years has not been determined. Clinical correlation is essential. Serum or plasma urea nitroge n measurement (mass/volume)Ordered By: Agustín Estrada on 09-05-2023 Urea nitrogen [Mass/Vol] 9 mg/dL 7-18 [facility] Squamous epithelial cells de tection in urine sediment by light microscopyOrdered By: Agustín Estrada on 09-05-2023 Epithelial cells.squamous LM Ql (Urine sed) 0-5 SEEN /hpf 5-10 [facility] Thin prep Papanicolaou smear with manual screeningOrdered By: Agustín Estrada on 09-05-2023 Thin prep Papanicolaou smear with manual screening 15 U/L 15-37 [facility] Thin prep Papanicolaou smear with manual screening 5 5-15 [facility] Urine blood detectionOrdered By: Agustín Estrada on 09-05-2023 RBC Ql (U) Negative Negative [facility] RBC Ql (U) 0 SEEN /hpf 0-5 [facility] Urine clarityOrdered By: Austyn Estrada on 09-05-2023 Clarity (U) Clear Clear [facility] Urine color determinationOrd ered By: Agustín Estrada on 09-05-2023 Color (U) Yellow Yellow [facility] Urine glucose detectionOrder ed By: Agustín Estrada on 09-05-2023 Glucose Ql (U) Normal mg/dl Normal [facility] Urine leukocyte esterase det ection by dipstickOrdered By: Agustín Estrada on 09-05-2023 Leukocyte esterase Test strip Ql (U) 25 /ul Negative [facility] Urine pHOrdered By: Agustín harris on 09-05-2023 pH (U) 6.0 [pH] 5.0 - 8.0 [facility] Urine sediment bacteria coun t by microscopy (number/high power field)Ordered By: gAustín Estrada on 09-05-2023 Bacteria LM.HPF (Urine sed) [#/Area] 0 /[HPF] None Seen [facility] Urine specific gravity measu rementOrdered By: Agustín Estrada on 09-05-2023 Specific gravity (U) [Rel density] 1.010 1.002-1.030 [facility] Urobilinogen Auto test strip Ql (U)Ordered By: Agustín Estrada on 09-05-2023 Urobilinogen Ql (U) Normal mg/dl Normal [facility] ALLIED HEALTHon 06-07-2023 ALLIED HEALTH HNO ID: [id number] Author: Belkis Hogan RT(R) Service: ? Author Type: Airplane Designer Type: Allied Health Filed: 06/06/2023 10:13 PM Note Text: Radiology Service Progress Note PATIENT NAME: Dayna Tinsley DATE OF SERVICE: June 06, 2023 TIME: 10:13 PM PATIENT IDENTITY VERIFICATION COMPLETED USING TWO (2) IDENTIFIERS: Name and Date of confirmed by patient verbally. FALL SCREENING: Has the patient had 2 falls in the last year or 1 fall with injury or currently using an Ambulatory Assistive Device (Walker, Cane, Wheelchair, Crutches, etc.)? Emergency Room Patient: Screened in ED PATIENT GENDER DATA: Female. status: : No status: NO. PATIENT RELEVANT IMPLANT DATA REVIEWED: Not Applicable RADIOLOGY DEPARTMENT: General X-ray: Exam(s) Completed: Chest X-Ray PERIPHERAL IV DATA: Not applicable SIGNED BY: RT Génesis(R) June 06, 2023 10:13 PM [facility] ECG COMPLETEon 06-07-2023 ECG COMPLETE Ventricular Rate : 6 5 BPM Atrial Rate : 65 BPM P-R Interval : 126 ms QRS Duration : 100 ms Q-T Interval : 428 ms QTC Calculation(Bazett) : 445 ms Calculated P Crawley : 52 degrees Calculated R Crawley : 36 degrees Calculated T Crawley : 30 degrees SINUS RHYTHM WITH MARKED SINUS ARRHYTHMIA OTHERWISE NORMAL ECG NO PREVIOUS ECGS AVAILABLE Confirmed by MD BERMEO VINAYAK ([id number]) on 06/07/2023 9:40:19 AM NAME : DAYNA TINSLEY PID : [id number] : 1990 Gender : Female Race : ORD : [id number] Procedure Date : Jun 06 2023 22:12:30 Edit Date : Jun 07 2023 09:40:23 Diagnosis: SINUS RHYTHM WITH MARKED SINUS ARRHYTHMIA OTHERWISE NORMAL ECG NO PREVIOUS ECGS AVAILABLE Confirmed by MD BERMEO VINAYAK ([id number]) on 06/07/2023 9:40:19 AM Test Reason : Chest Pain Location : 150 : [facility] Overread By : MD BERMEO VINAYAK Edited By : MD BERMEO VINAYAK Referred By : , Acquired by : LAUREN CALIX [facility] ED NOTEon 06-07-2023 ED NOTE HNO ID: [id number] Author: Vania Hansen RN Service: Emergency Medicine Author Type: Registered Nurse Type: ED Notes Filed: 06/06/2023 11:05 PM Note Text: Patient is AANDO, wdp, resps unlabored, relaxed facial expression and posture. Does not appear to be in any distress. Dc instr to fu w pmd, return prn, verb und. Ambulates from ER [facility] ED NOTE HNO ID: [id number] Author: Yeny Kay, DOUG Service: Emergency Medicine Author Type: Registered Nurse Type: ED Notes Filed: 06/06/2023 10:30 PM Note Text: Pt refuses zofran. Physician updated. Normal [facility] ED PROV NOTEon 06-07-2023 ED PROV NOTE HNO ID: [id number] Author: Jennifer Zaidi MD Service: Emergency Medicine Author Type: Physician Type: ED Provider Notes Filed: 06/06/2023 11:26 PM Note Text: ED Provider Note Patient Name: Dayna Tinsley : 1990 SERVICE DATE: 06/06/23 History Patient presents with: Chest Pain Back Pain HPI Patient is a 32-year-old female with history as below presenting for evaluation of multiple somatic complaints. History is provided by patient. She states that she has been sick for over 3 weeks now. Believes that she has been exposed to some sort of toxin at her workplace. 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 States that when she took out the trash 3 days ago something splashed her arm and she is concerned that it is exposing her to toxins. She states that she has had temperature problems as well as tingling sensation in her right arm since. Was actually seen and evaluated at [facility] for this yesterday. They recommended outpatient follow-up. She states that she had some chest pain and back pain at that time as well which she believes is progression of this exposure symptom. States that they did blood work and EKG, chest x-ray and told everything looked fine. Patient states symptoms have persisted and so she presents to our ED today. She states that she is looking for answers as to what she was exposed to. States that she feels that she is not safe to work due to the symptoms and potential exposure to further toxins at the workplace. No fevers or chills. No lightheadedness or dizziness. States the pain has been constant since onset. No abdominal pain nausea vomiting or diarrhea. Is requesting a work note for excuse until next Sunday when her primary care provider is able to see her, 6 days from now PAST MEDICAL HISTORY Diagnosis Date ADD (attention deficit disorder) since childhood Arthritis Bowel disease Colitis 2001 had mild colitis on colonscopy Degeneration of lumbar or lumbosacral intervertebral disc Depression GERD (gastroesophageal reflux disease) Infertility Morbid obesity with BMI of 45.0-49.9, adult ([facility]) Personal history of unspecified urinary disorder Thoracic or lumbosacral neuritis or radiculitis, unspecified PAST SURGICAL HISTORY Procedure Laterality Date CHOLECYSTECTOMY 2005 COLECTOMY PARTIAL W ANASTOM 2004 for crohns COLONOSCOPY 12/2011, 06/2014 PAST SURGICAL HISTORY OF ear tubes numerous times PAST SURGICAL HISTORY OF 2012 caudal epidural steroid injection ([place]) SUCTION D AND C 2010 FAMILY HISTORY Problem Relation Age of Onset Kidney Disease Mother stones, needed stents Diabetes Maternal Grandmother Diabetes Maternal Grandfather Lipids Maternal Grandfather other (ADHD [Other]) Brother 1/2 brother Arthritis Mother RA Arthritis Father RA Arthritis Maternal Grandmother Social History Tobacco Use Smoking status: Some Days Types: Cigarettes Passive exposure: Yes Smokeless tobacco: Never Vaping Use Vaping Use: Never used Substance and Sexual Activity Alcohol use: Yes Comment: social Drug use: Not Currently Types: Marijuana Comment: not currently Sexual activity: Yes Partners: Male ALLERGIES Allergen Reactions Adhesive Rash Solu-Medrol [Methyl* Anaphylaxis Amoxicillin Other: See Comments Given C-Diff Gabapentin Other: See Comments suicidal ideation Morphine Mental Status Change, GI Upset Propofol Mental Status Change Possible delirium/neuroexcitatory syndrome Versed [Midazolam H* Mental Status Change, GI Upset Zoloft [Sertraline * Intolerance Review of Systems Physical Exam Vitals [06/06/234] BP Pulse Temp Temp src Resp SpO2 Weight Height 175/94 74 36.7 ?C (98 ?F) -- 20 99 % 120.2 kg (265 lb) 1.626 m (5' 4) Physical Exam Well-appearing, non-toxic and in no obvious distress. Hemodynamically stable and afebrile Heart RRR w/o murmurs; Distal pulses intact Lungs CTAB Abd soft, NT, ND Patient moves all 4 extremities spontaneously and without deficit Cranial nerves II through XII grossly intact without deficit: Pupils are equal round reactive to light extraocular movements are intact. Face is bilaterally symmetrical motor and sensory. No facial droop appreciated. Tongue is midline on protrusion. Speech is clear and crisp, patient alert and oriented ?3. 5 out of 5 strength, motor and sensory to extremities ?4. No findings on cerebellar testing with finger to nose or [id number] exam. Patient with even steady gait in the emergency room. Diagnostic Testing ED Labs Ordered and Reviewed - No data to display Procedures ED Course / Clinical Impression ED Course as of 06/06/232320 Jennifer Zaidi's Documentation Wed Jun 06, 20239 Triage EKG obtained and reviewed by myself. Sinus rhythm noted with sinus arrhythmia. Ventricular to 65 bpm. No (more content not included)... Normal [facility] XR CHEST 2V FRONTAL/LATon XR CHEST 2V FRONTAL/LAT * * *Final Report* * * DATE OF EXAM: Jun 06 2023 10:12PM LDX 5291 - XR CHEST 2V FRONTAL/LAT / PROCEDURE REASON: Shortness of breath * * * * Physician Interpretation * * * * EXAMINATION: 2 VIEW CHEST RADIOGRAPH (PA/AP AND LATERAL) CLINICAL INFORMATION ( PROVIDED BY ORDERING CLINICIAN) : Shortness of breath Comparison: 03/10/2015 RESULT: Lines, tubes, and devices: None. Lungs and pleura: No confluent infiltrate, large pleural effusion or pneumothorax. Cardiomediastinal silhouette: Within normal limits. Other: No acute bony abnormality identified. IMPRESSION: No significant acute radiographic abnormality of the chest. Plant Safety Engineer: PSCB Transcribe Date/Time: Jun 06 2023 10:38P Dictated by : RANJAN ANGEL MD This examination was interpreted and the report reviewed and electronically signed by: RANJAN ANGEL MD on Jun 06 2023 10:39PM EST [id number] Normal [facility] ED NOTEon 06-06-2023 ED NOTE HNO ID: [id number] Author: Deborah Ornelas, RN Service: Nursing Author Type: Registered Nurse Type: ED Notes Filed: 06/06/2023 9:21 PM Note Text: Pt states she was at work ([employer]) and was splashed by unknown substance of biohazard waste on R forearm. Pt reports she been having chest pain and thinks her R arm is swollen. Pt states I've been sick non-stop back to back for three weeks pt also reports back pain and fevers for three weeks Normal [facility] Absolute lymphocyte countOrd ered By: Major Mejia on 06-05-2023 Lymphocytes Auto (Unsp spec) [#/Vol] 3.02 10*3/uL 0.83-4.51 [facility] Basophil percentageOrdered B y: Major Mejia on 06-05-2023 Basophils/100 WBC (Bld) 0.5 % 0-1 [facility] Chloride [Moles/Vol] 110 mmol/L 98-107 [facility] Eosinophils/100 WBC (Bld) 0.1 % 0-5 [facility] Glucose [Mass/Vol] 96 mg/dL 74-106 [facility] Lactate [Moles/Vol] 0.4 mmol/L 0.4-2.0 [facility] Neutrophils (Bld) [#/Vol] 6.5 10*3/uL 2.0-7.7 [facility] Neutrophils/100 WBC (Bld) 64.4 % 47-70 [facility] Potassium [Moles/Vol] 5.0 mmol/L 3.5-5.1 [facility] Comment on above: Moderate Hemolysis, Result may be falsely increased. Sodium [Moles/Vol] 136 mmol/L 136-145 [facility] WBC (Bld) [#/Vol] 10.1 10*3/uL 4.4-11.0 [facility] Blood erythrocytes count (nu mber/volume)Ordered By: Major Mejia on 06-05-2023 RBC (Bld) [#/Vol] 4.48 10*6/uL 4.2-5.4 [facility] Blood hemoglobin measurement (mass/volume)Ordered By: Major Mejia on 06-05-2023 Hemoglobin (Bld) [Mass/Vol] 12.3 g/dL 12.0-15.0 [facility] Blood lymphocytes/100 leukoc ytesOrdered By: Major Mejia on 06-05-2023 Lymphocytes/100 WBC (Bld) 29.9 % 19-41 [facility] Blood monocytes/100 leukocyt esOrdered By: Major Mejia on 06-05-2023 Monocytes/100 WBC (Bld) 4.8 % 0-10 [facility] Blood platelet mean volumeOr dered By: Major Mejia on 06-05-2023 Platelet mean volume (Bld) [Entitic vol] 10.2 fL 6.2-12.0 [facility] Determination of erythrocyte mean corpuscular volume (MCV)Ordered By: Major Mejia on 06-05-2023 MCV (RBC) [Entitic vol] 85.0 fL 81-99 [facility] Hematocrit Auto (Bld) [Volum e fraction]Ordered By: Major Mejia on 06-05-2023 Hematocrit (Bld) [Volume fraction] 38.1 % 37-47 [facility] - Chemistry and C hemistry - challengeOrdered By: Major Mejia on 06-05-2023 CO2 [Moles/Vol] 22.0 mmol/L 21.0-32.0 [facility] Magnesium [Mass/Vol] 2.0 mg/dL 1.6-2.6 [facility] Comment on above: Moderate Hemolysis, Result may be falsely increased. Urea nitrogen/Creatinine [Mass ratio] 4.2 mg/mg 10-20 [facility] - Hematology and Cell countsOrdered By: Major Mejia on 06-05-2023 Erythrocyte distribution width (RBC) [Entitic vol] 43.1 fL 35.1-43.9 [facility] Erythrocyte distribution width (RBC) [Ratio] 13.9 % 11.6-14.6 [facility] Immature granulocytes/100 WBC (Bld) 0.300 % 0.0-0.9 [facility] Comment on above: IG% - Immature Granu locytes (promyelocytes, myelocytes and metamyelocytes) > 1% indicates that a LEFT SHIFT is Present. MCH (RBC) [Entitic mass] 27.5 pg 27.0-32.0 [facility] Nucleated RBC/100 WBC (Bld) [Ratio] 0 % 0-5 [facility] MCHC Auto (RBC) [Mass/Vol]Or dered By: Major Mejia on 06-05-2023 MCHC (RBC) [Mass/Vol] 32.3 g/dL 32-36 [facility] No Panel InformationOrdered By: Major Mejia on 06-05-2023 Estimated Creatinine Clearance Calc 96.41 ml/min [facility] Estimated GFR (MDRD) Amer 120 mL/min >60 [facility] Comment on above: GFR Calc Estimated GFR (MDRD) Non-Af Amer 99 mL/min >60 [facility] Comment on above: Non- GFR Calc Troponin I High Sensitivity 3 pg/mL 3.0-54.0 [facility] Comment on above: Please Note: [place] Units and Gender Specific Reference Ranges. For more information see Policy Stat Procedure [employer] High Sensitivity Troponin (TNIH) and attachments. Platelets bldOrdered By: Johnson Mejia on 06-05-2023 Platelets (Bld) [#/Vol] 243 10*3/uL 150-450 [facility] Serum or plasma calcium omega urement (mass/volume)Ordered By: Major Mejia on 06-05-2023 Calcium [Mass/Vol] 8.3 mg/dL 8.5-10.1 [facility] Serum or plasma creatinine m easurement (mass/volume)Ordered By: Major Mejia on 06-05-2023 Creatinine [Mass/Vol] 0.71 mg/dL 0.55-1.02 [facility] Comment on above: The validity of the calculated GFR & GFRAA in patients over 70 years has not been determined. Clinical correlation is essential. Serum or plasma urea nitroge n measurement (mass/volume)Ordered By: Major Mejia on 06-05-2023 Urea nitrogen [Mass/Vol] 3 mg/dL 7-18 [facility] Thin prep Papanicolaou smear with manual screeningOrdered By: Major Mejia on 06-05-2023 Thin prep Papanicolaou smear with manual screening 4 5-15 [facility] Basophil percentageOrdered B y: Harriet Chirinos on 05-17-2023 Chloride [Moles/Vol] 106 mmol/L 98-107 [facility] Glucose [Mass/Vol] 88 mg/dL 74-106 [facility] Potassium [Moles/Vol] 3.6 mmol/L 3.5-5.1 [facility] Comment on above: Slight Hemolysis, Re sult may be falsely increased. Sodium [Moles/Vol] 138 mmol/L 136-145 [facility] Influenza virus A and B and SARS-CoV-2 (COVID-19) Ag panel - Upper respiratory specimOrdered By: Harriet Chirinos on 05-17-2023 SARS-CoV-2 (COVID-19) RNA JYOTI+probe Ql (Resp) [facility] - Chemistry and C hemistry - challengeOrdered By: Harriet Chirinos on 05-17-2023 CO2 [Moles/Vol] 24.0 mmol/L 21.0-32.0 [facility] Urea nitrogen/Creatinine [Mass ratio] 12.3 mg/mg 10-20 [facility] No Panel InformationOrdered By: Harriet Chirinos on 05-17-2023 Estimated Creatinine Clearance Calc 76.91 ml/min [facility] Estimated GFR (MDRD) Amer 93 mL/min >60 [facility] Comment on above: GFR Calc Estimated GFR (MDRD) Non-Af Amer 77 mL/min >60 [facility] Comment on above: Non- GFR Calc Serum or plasma calcium omega urement (mass/volume)Ordered By: Harriet Chirinos on 05-17-2023 Calcium [Mass/Vol] 8.9 mg/dL 8.5-10.1 [facility] Serum or plasma creatinine m easurement (mass/volume)Ordered By: Harriet Chirinos on 05-17-2023 Creatinine [Mass/Vol] 0.89 mg/dL 0.55-1.02 [facility] Comment on above: The validity of the calculated GFR & GFRAA in patients over 70 years has not been determined. Clinical correlation is essential. Serum or plasma urea nitroge n measurement (mass/volume)Ordered By: Harriet Chirinos on 05-17-2023 Urea nitrogen [Mass/Vol] 11 mg/dL -18 [facility] Thin prep Papanicolaou smear with manual screeningOrdered By: Harriet Chirinos on 05-17-2023 Thin prep Papanicolaou smear with manual screening 8 5-15 [facility] Absolute lymphocyte countOrd ered By: Dr. Brooks on 01-21-2023 Lymphocytes Auto (Unsp spec) [#/Vol] 2.86 10*3/uL 0.83-4.51 [facility] Basophil percentageOrdered B y: Dr. Brooks on 01-21-2023 Basophil percentage 0 SEEN /hpf 0-5 [facility] Basophils/100 WBC (Bld) 0.4 % 0-1 [facility] Eosinophils/100 WBC (Bld) 0.1 % 0-5 [facility] Neutrophils (Bld) [#/Vol] 7.7 10*3/uL 2.0-7.7 [facility] Neutrophils/100 WBC (Bld) 69.2 % 47-70 [facility] WBC (Bld) [#/Vol] 11.1 10*3/uL 4.4-11.0 [facility] Bilirubin [Mass/Vol] 0.90 mg/dL 0.20-1.00 [facility] Comment on above: For patients on eltr ombopag therapy, use of Dimension [employer] TBIL is not recommended. Chloride [Moles/Vol] 108 mmol/L 98-107 [facility] Glucose [Mass/Vol] 114 mg/dL 74-106 [facility] Comment on above: Fasting Glucose resu lt from 100 to 125 mg/dL suggests IMPAIRED HOMEOSTASIS per A.D.A. criteria. Potassium [Moles/Vol] 3.8 mmol/L 3.5-5.1 [facility] Protein [Mass/Vol] 7.7 g/dL 6.4-8.2 [facility] Sodium [Moles/Vol] 139 mmol/L 136-145 [facility] Beta hCG serum qualOrdered B y: Dr. Brooks on 01-21-2023 Beta HCG ( test) Ql Negative [facility] Bilirubin Test strip Ql (U)O rdered By: Dr. Brooks on 01-21-2023 Bilirubin Ql (U) Negative Negative [facility] Blood erythrocytes count (nu mber/volume)Ordered By: Dr. Brooks on 01-21-2023 RBC (Bld) [#/Vol] 4.99 10*6/uL 4.2-5.4 [facility] Blood hemoglobin measurement (mass/volume)Ordered By: Dr. Brooks on 01-21-2023 Hemoglobin (Bld) [Mass/Vol] 13.0 g/dL 12.0-15.0 [facility] Blood lymphocytes/100 leukoc ytesOrdered By: Dr. Brooks on 01-21-2023 Lymphocytes/100 WBC (Bld) 25.7 % 19-41 [facility] Blood monocytes/100 leukocyt esOrdered By: Dr. Brooks on 01-21-2023 Monocytes/100 WBC (Bld) 4.3 % 0-10 [facility] Blood platelet mean volumeOr dered By: Dr. Brooks on 01-21-2023 Platelet mean volume (Bld) [Entitic vol] 10.8 fL 6.2-12.0 [facility] Determination of erythrocyte mean corpuscular volume (MCV)Ordered By: Dr. Brooks on 01-21-2023 MCV (RBC) [Entitic vol] 82.6 fL 81-99 [facility] Hematocrit Auto (Bld) [Volum e fraction]Ordered By: Dr. Brooks on 01-21-2023 Hematocrit (Bld) [Volume fraction] 41.2 % 37-47 [facility] Ketones Test strip Ql (U)Ord ered By: Dr. Brooks on 01-21-2023 Ketones Ql (U) Negative Negative [facility] - Chemistry and C hemistry - challengeOrdered By: Dr. Brooks on 01-21-2023 ALP [Catalytic activity/Vol] 74 U/L 45-117 [facility] ALT [Catalytic activity/Vol] 15 U/L 13-56 [facility] CO2 [Moles/Vol] 24.0 mmol/L 21.0-32.0 [facility] Globulin (S) [Mass/Vol] 4.3 g/dL 2.2-4.2 [facility] Lipase [Catalytic activity/Vol] 57 U/L 73-393 [facility] Urea nitrogen/Creatinine [Mass ratio] 8.5 mg/mg 10-20 [facility] - Hematology and Cell countsOrdered By: Dr. Brooks on 01-21-2023 Erythrocyte distribution width (RBC) [Entitic vol] 43.9 fL 35.1-43.9 [facility] Erythrocyte distribution width (RBC) [Ratio] 14.7 % 11.6-14.6 [facility] Immature granulocytes/100 WBC (Bld) 0.300 % 0.0-0.9 [facility] Comment on above: IG% - Immature Granu locytes (promyelocytes, myelocytes and metamyelocytes) > 1% indicates that a LEFT SHIFT is Present. MCH (RBC) [Entitic mass] 26.1 pg 27.0-32.0 [facility] Nucleated RBC/100 WBC (Bld) [Ratio] 0 % 0-5 [facility] MCHC Auto (RBC) [Mass/Vol]Or dered By: Dr. Brooks on 01-21-2023 MCHC (RBC) [Mass/Vol] 31.6 g/dL 32-36 [facility] Mucus LM Ql (Urine sed)Order ed By: Dr. Brooks on 01-21-2023 Mucus Ql (Urine sed) 0 SEEN /hpf [facility] Nitrite Test strip Ql (U)Ord ered By: Dr. Brooks on 01-21-2023 Nitrite Ql (U) Negative Negative [facility] No Panel InformationOrdered By: Dr. Brooks on 01-21-2023 Estimated Creatinine Clearance Calc 64.58 ml/min [facility] Estimated GFR (MDRD) Amer 76 mL/min >60 [facility] Comment on above: GFR Calc Estimated GFR (MDRD) Non-Af Amer 63 mL/min >60 [facility] Comment on above: Non- GFR Calc Platelets bldOrdered By: Dr. Brooks on 01-21-2023 Platelets (Bld) [#/Vol] 282 10*3/uL 150-450 [facility] Protein Test strip Ql (U)Ord ered By: Dr. Brooks on 01-21-2023 Protein Ql (U) Negative Negative [facility] Serum or plasma albumin omega urement (mass/volume)Ordered By: Dr. Brooks on 01-21-2023 Albumin [Mass/Vol] 3.4 g/dL 3.2-5.0 [facility] Serum or plasma albumin/glob ulin mass ratioOrdered By: Dr. Brooks on 01-21-2023 Albumin/Globulin [Mass ratio] 0.8 {ratio} 0.9-2.4 [facility] Serum or plasma calcium omega urement (mass/volume)Ordered By: Dr. Brooks on 01-21-2023 Calcium [Mass/Vol] 8.9 mg/dL 8.5-10.1 [facility] Serum or plasma creatinine m easurement (mass/volume)Ordered By: Dr. Brooks on 01-21-2023 Creatinine [Mass/Vol] 1.06 mg/dL 0.55-1.02 [facility] Comment on above: The validity of the calculated GFR & GFRAA in patients over 70 years has not been determined. Clinical correlation is essential. Serum or plasma urea nitroge n measurement (mass/volume)Ordered By: Dr. Brooks on 01-21-2023 Urea nitrogen [Mass/Vol] 9 mg/dL 7-18 [facility] Squamous epithelial cells de tection in urine sediment by light microscopyOrdered By: Dr. Brooks on 01-21-2023 Epithelial cells.squamous LM Ql (Urine sed) 0-5 SEEN /hpf 5-10 [facility] Thin prep Papanicolaou smear with manual screeningOrdered By: Dr. Brooks on 01-21-2023 Thin prep Papanicolaou smear with manual screening 12 U/L 15-37 [facility] Thin prep Papanicolaou smear with manual screening 7 5-15 [facility] Urine blood detectionOrdered By: Dr. Brooks on 01-21-2023 RBC Ql (U) Negative Negative [facility] RBC Ql (U) 0 SEEN /hpf 0-5 [facility] Urine clarityOrdered By: Dr. Brooks on 01-21-2023 Clarity (U) Clear Clear [facility] Urine color determinationOrd ered By: Dr. Brooks on 01-21-2023 Color (U) Straw Yellow [facility] Urine glucose detectionOrder ed By: Dr. Brooks on 01-21-2023 Glucose Ql (U) Normal mg/dl Normal [facility] Urine leukocyte esterase det ection by dipstickOrdered By: Dr. Brooks on 01-21-2023 Leukocyte esterase Test strip Ql (U) Negative Negative [facility] Urine pHOrdered By: Dr. Joey neumann on 01-21-2023 pH (U) 6.5 [pH] 5.0 - 8.0 [facility] Urine sediment bacteria coun t by microscopy (number/high power field)Ordered By: Dr. Brooks on 01-21-2023 Bacteria LM.HPF (Urine sed) [#/Area] 0 /[HPF] None Seen [facility] Urine specific gravity measu rementOrdered By: Dr. Brooks on 01-21-2023 Specific gravity (U) [Rel density] 1.010 1.002-1.030 [facility] Urobilinogen Auto test strip Ql (U)Ordered By: Dr. Brooks on 01-21-2023 Urobilinogen Ql (U) Normal mg/dl Normal [facility] Absolute lymphocyte countOrd ered By: Dr. Taylor on 12-14-2022 Lymphocytes Auto (Unsp spec) [#/Vol] 2.92 10*3/uL 0.83-4.51 [facility] Basophil percentageOrdered B y: Dr. Taylor on 12-14-2022 Basophil percentage 0 SEEN /hpf 0-5 [facility] Basophils/100 WBC (Bld) 0.6 % 0-1 [facility] Bilirubin [Mass/Vol] 0.80 mg/dL 0.20-1.00 [facility] Comment on above: For patients on eltr ombopag therapy, use of Dimension [employer] TBIL is not recommended. Chloride [Moles/Vol] 108 mmol/L 98-107 [facility] Eosinophils/100 WBC (Bld) 0.1 % 0-5 [facility] Glucose [Mass/Vol] 98 mg/dL 74-106 [facility] Neutrophils (Bld) [#/Vol] 4.4 10*3/uL 2.0-7.7 [facility] Neutrophils/100 WBC (Bld) 56.1 % 47-70 [facility] Potassium [Moles/Vol] 2.9 mmol/L 3.5-5.1 [facility] Protein [Mass/Vol] 7.5 g/dL 6.4-8.2 [facility] Sodium [Moles/Vol] 142 mmol/L 136-145 [facility] WBC (Bld) [#/Vol] 7.8 10*3/uL 4.4-11.0 [facility] Beta hCG serum qualOrdered B y: Dr. Taylor on 12-14-2022 Beta HCG ( test) Ql Negative [facility] Bilirubin Test strip Ql (U)O rdered By: Dr. Taylor on 12-14-2022 Bilirubin Ql (U) Negative Negative [facility] Blood erythrocytes count (nu mber/volume)Ordered By: Dr. Taylor on 12-14-2022 RBC (Bld) [#/Vol] 4.58 10*6/uL 4.2-5.4 [facility] Blood hemoglobin measurement (mass/volume)Ordered By: Dr. Taylor on 12-14-2022 Hemoglobin (Bld) [Mass/Vol] 11.8 g/dL 12.0-15.0 [facility] Blood lymphocytes/100 leukoc ytesOrdered By: Dr. Taylor on 12-14-2022 Lymphocytes/100 WBC (Bld) 37.2 % 19-41 [facility] Blood monocytes/100 leukocyt esOrdered By: Dr. Taylor on 12-14-2022 Monocytes/100 WBC (Bld) 5.7 % 0-10 [facility] Blood platelet mean volumeOr dered By: Dr. Taylor on 12-14-2022 Platelet mean volume (Bld) [Entitic vol] 10.2 fL 6.2-12.0 [facility] Determination of erythrocyte mean corpuscular volume (MCV)Ordered By: Dr. Taylor on 12-14-2022 MCV (RBC) [Entitic vol] 81.0 fL 81-99 [facility] Hematocrit Auto (Bld) [Volum e fraction]Ordered By: Dr. Taylor on 12-14-2022 Hematocrit (Bld) [Volume fraction] 37.1 % 37-47 [facility] Ketones Test strip Ql (U)Ord ered By: Dr. Taylor on 12-14-2022 Ketones Ql (U) Negative Negative [facility] Laboratory - Chemistry and C hemistry - challengeOrdered By: Dr. Taylor on 12-14-2022 ALP [Catalytic activity/Vol] 65 U/L 45-117 [facility] ALT [Catalytic activity/Vol] 17 U/L 13-56 [facility] CO2 [Moles/Vol] 24.0 mmol/L 21.0-32.0 [facility] Globulin (S) [Mass/Vol] 3.8 g/dL 2.2-4.2 [facility] Lipase [Catalytic activity/Vol] 87 U/L 73-393 [facility] Urea nitrogen/Creatinine [Mass ratio] 9.0 mg/mg 10-20 [facility] - Hematology and Cell countsOrdered By: Dr. Taylor on 12-14-2022 Erythrocyte distribution width (RBC) [Entitic vol] 41.3 fL 35.1-43.9 [facility] Erythrocyte distribution width (RBC) [Ratio] 14.1 % 11.6-14.6 [facility] Immature granulocytes/100 WBC (Bld) 0.300 % 0.0-0.9 [facility] Comment on above: IG% - Immature Granu locytes (promyelocytes, myelocytes and metamyelocytes) > 1% indicates that a LEFT SHIFT is Present. MCH (RBC) [Entitic mass] 25.8 pg 27.0-32.0 [facility] Nucleated RBC/100 WBC (Bld) [Ratio] 0 % 0-5 [facility] MCHC Auto (RBC) [Mass/Vol]Or dered By: Dr. Taylor on 12-14-2022 MCHC (RBC) [Mass/Vol] 31.8 g/dL 32-36 [facility] Mucus LM Ql (Urine sed)Order ed By: Dr. Taylor on 12-14-2022 Mucus Ql (Urine sed) 0 SEEN /hpf [facility] Nitrite Test strip Ql (U)Ord ered By: Dr. Taylor on 12-14-2022 Nitrite Ql (U) Negative Negative [facility] No Panel InformationOrdered By: Dr. Taylor on 12-14-2022 Estimated Creatinine Clearance Calc 88.90 ml/min [facility] Estimated GFR (MDRD) Amer 110 mL/min >60 [facility] Comment on above: GFR Calc Estimated GFR (MDRD) Non-Af Amer 91 mL/min >60 [facility] Comment on above: Non- GFR Calc Platelets bldOrdered By: Dr. Taylor on 12-14-2022 Platelets (Bld) [#/Vol] 277 10*3/uL 150-450 [facility] Protein Test strip Ql (U)Ord ered By: Dr. Taylor on 12-14-2022 Protein Ql (U) Negative Negative [facility] Serum or plasma albumin omega urement (mass/volume)Ordered By: Dr. Taylor on 12-14-2022 Albumin [Mass/Vol] 3.7 g/dL 3.2-5.0 [facility] Serum or plasma albumin/glob ulin mass ratioOrdered By: Dr. Taylor on 12-14-2022 Albumin/Globulin [Mass ratio] 1.0 {ratio} 0.9-2.4 [facility] Serum or plasma calcium omega urement (mass/volume)Ordered By: Dr. Taylor on 12-14-2022 Calcium [Mass/Vol] 9.1 mg/dL 8.5-10.1 [facility] Serum or plasma creatinine m easurement (mass/volume)Ordered By: Dr. Taylor on 12-14-2022 Creatinine [Mass/Vol] 0.77 mg/dL 0.55-1.02 [facility] Comment on above: The validity of the calculated GFR & GFRAA in patients over 70 years has not been determined. Clinical correlation is essential. Serum or plasma urea nitroge n measurement (mass/volume)Ordered By: Dr. Taylor on 12-14-2022 Urea nitrogen [Mass/Vol] 7 mg/dL 7-18 [facility] Squamous epithelial cells de tection in urine sediment by light microscopyOrdered By: Dr. Taylor on 12-14-2022 Epithelial cells.squamous LM Ql (Urine sed) 0 SEEN /hpf 5-10 [facility] Thin prep Papanicolaou smear with manual screeningOrdered By: Dr. Taylor on 12-14-2022 Thin prep Papanicolaou smear with manual screening 16 U/L 15-37 [facility] Thin prep Papanicolaou smear with manual screening 10 5-15 [facility] Urine blood detectionOrdered By: Dr. Taylor on 12-14-2022 RBC Ql (U) Negative Negative [facility] RBC Ql (U) 0 SEEN /hpf 0-5 [facility] Urine clarityOrdered By: Dr. Taylor on 12-14-2022 Clarity (U) Clear Clear [facility] Urine color determinationOrd ered By: Dr. Taylor on 12-14-2022 Color (U) Yellow Yellow [facility] Urine glucose detectionOrder ed By: Dr. Taylor on 12-14-2022 Glucose Ql (U) Normal mg/dl Normal [facility] Urine leukocyte esterase det ection by dipstickOrdered By: Dr. Taylor on 12-14-2022 Leukocyte esterase Test strip Ql (U) Negative Negative [facility] Urine pHOrdered By: Dr. Miguel miranda on 12-14-2022 pH (U) 6.5 [pH] 5.0 - 8.0 [facility] Urine sediment bacteria coun t by microscopy (number/high power field)Ordered By: Dr. Taylor on 12-14-2022 Bacteria LM.HPF (Urine sed) [#/Area] 0 /[HPF] None Seen [facility] Urine specific gravity measu rementOrdered By: Dr. Taylor on 12-14-2022 Specific gravity (U) [Rel density] 1.010 1.002-1.030 [facility] Urobilinogen Auto test strip Ql (U)Ordered By: Dr. Taylor on 12-14-2022 Urobilinogen Ql (U) Normal mg/dl Normal [facility] Basic metabolic 2000 panelon 12-03-2022 Anion gap [Moles/Vol] 11 mmol/L Normal 9-18 [facility] Comment on above: Order Comment: Speci men Type: BLOOD SPECIMEN Ordering Facility: [facility] Address: [address] [place], [place] [id number] Performed By: #### 2 43211-06, 2157-04 #### [facility] CLIA [id number] [address] [place] [address] [place] Calcium [Mass/Vol] 9.0 mg/dL Normal 8.5-10.2 [facility] Comment on above: Order Comment: Speci men Type: BLOOD SPECIMEN Ordering Facility: [facility] Address: [address] [place], [place] [id number] Performed By: #### 2 43211-06, 2157-04 #### [facility] CLIA [id number] [address] [place] [address] [place] Chloride [Moles/Vol] 106 mmol/L High 97-105 [facility] Comment on above: Order Comment: Speci men Type: BLOOD SPECIMEN Ordering Facility: [facility] Address: [address] [place] [address] Performed By: #### 2 4320-12, 2157-04 #### [facility] CLIA [id number] [address] [place] [address] [place] CO2 [Moles/Vol] 21 mmol/L Low 22-30 [facility] Comment on above: Order Comment: Speci men Type: BLOOD SPECIMEN Ordering Facility: [facility] Address: [address] [place] [address] Performed By: #### 2 4320-12, 2157-04 #### [email or web address] CLIA [id number] [address] [place] [address] [place] Creatinine [Mass/Vol] 0.67 mg/dL Normal 0.58-0.96 [facility] Comment on above: Order Comment: Speci men Type: BLOOD SPECIMEN Ordering Facility: [facility] Address: [address] [place] [address] Performed By: #### 2 4320-12, 2157-04 #### [facility] CLIA [id number] [address] [place] [address] [place] ESTIMATED GLOMERULAR FILTRATION RATE 119 mL/min/1.73m??? Normal >=60 [facility] Comment on above: Order Comment: Speci men Type: BLOOD SPECIMEN Ordering Facility: [facility] Address: [address] [place] [address] Result Comment: Zoya mated Glomerular Filtration Rate (eGFR) is calculated using the 2020 CKD-EPI creatinine equation. This equation utilizes serum creatinine, sex, and age as parameters. The creatinine assay has traceable calibration to isotope dilution-mass spectrometry. Refer to KDIGO guidelines for clinical interpretation. In patients with unstable renal function, e.g. those with acute kidney injury, the eGFR may not accurately reflect actual GFR. Performed By: #### 2 432-, 2157-04 #### [email or web address] CLIA [id number] [address] [place] [address] [place] Glucose [Mass/Vol] 107 mg/dL High 74-99 [facility] Comment on above: Order Comment: Juana davis Type: BLOOD SPECIMEN Ordering Facility: [facility] Address: [address] [place] [address] Result Comment: The [place] [employer] (ADA) provides guidance for cutoff values for fasting glucose and random glucose. The ADA defines fasting as no caloric intake for at least 8 hours. Fasting plasma glucose results between 100 to 125 mg/dL indicate increased risk for diabetes (prediabetes). Fasting plasma glucose results greater than or equal to 126 mg/dL meet the criteria for diagnosis of diabetes. In the absence of unequivocal hyperglycemia, results should be confirmed by repeat testing. In a patient with classic symptoms of hyperglycemia or hyperglycemic crisis, random plasma glucose results greater than or equal to 200 mg/dL meet the criteria for diagnosis of diabetes. Reference: Standards of Medical Care in Diabetes 2016, [place] [employer]. Diabetes Care. 2016.39(Suppl 1). Performed By: #### 2 4320-, 2157-04 #### [facility] CLIA [id number] [address] [place] [address] [place] Potassium [Moles/Vol] 3.7 mmol/L Normal 3.7-5.1 [facility] Comment on above: Order Comment: Juana davsi Type: BLOOD SPECIMEN Ordering Facility: [facility] Address: [place] [address] Performed By: #### 2 4320-12, 2157-04 #### [facility] CLIA [id number] [address] [place] [address] [place] Sodium [Moles/Vol] 138 mmol/L Normal 136-144 [facility] Comment on above: Order Comment: Juana davis Type: BLOOD SPECIMEN Ordering Facility: [facility] Address: [address] [place] [address] Performed By: #### 2 4320-12, 2157-04 #### [facility] CLIA [id number] [address] [place] [address] [place] Urea nitrogen [Mass/Vol] 7 mg/dL Normal 7-21 [facility] Comment on above: Order Comment: Speci men Type: BLOOD SPECIMEN Ordering Facility: [facility] Address: [address] [address] Performed By: #### 2 4321-2, 2157-6 #### [facility] CLIA [id number] [address] [place] [address] [place] CBC W Auto Differential pane l (Bld)on 12-03-2022 Basophils (Bld) [#/Vol] 10*3/uL Normal <0.11 [facility] Comment on above: Order Comment: Speci men Type: BLOOD SPECIMEN Ordering Facility: [facility] Address: [address] [place] [address] Performed By: #### 5 7021-8 #### [facility] CLIA [id number] [address] [place] [address] [place] Basophils/100 WBC (Bld) 0.3 % Normal [facility] Comment on above: Order Comment: Speci men Type: BLOOD SPECIMEN Ordering Facility: [facility] Address: [address] [address] Performed By: #### 5 7021-8 #### [facility] CLIA [id number] [address] [place] Differential cell count method Nom (Bld) Auto Normal [facility] Comment on above: Order Comment: Speci men Type: BLOOD SPECIMEN Ordering Facility: [facility] Address: [address] [address] Performed By: #### 5 7021-8 #### [facility] CLIA [id number] [address] [place] [address] [place] Eosinophils (Bld) [#/Vol] 10*3/uL Normal <0.46 [facility] Comment on above: Order Comment: Speci men Type: BLOOD SPECIMEN Ordering Facility: [facility] Address: [address] [address] Performed By: #### 5 7021-8 #### [facility] CLIA [id number] [address] [place] [address] [place] Eosinophils/100 WBC (Bld) 0.0 % Normal [facility] Comment on above: Order Comment: Speci men Type: BLOOD SPECIMEN Ordering Facility: [facility] Address: [address] [place] [address] Performed By: #### 5 7021-8 #### [facility] CLIA [id number] [address] [place] [address] [place] Erythrocyte distribution width (RBC) [Ratio] 13.9 % Normal 11.5-15.0 [facility] Comment on above: Order Comment: Speci men Type: BLOOD SPECIMEN Ordering Facility: [facility] Address: [address] [place] [address] Performed By: #### 5 7021-8 #### [facility] CLIA [id number] [address] [place] [address] [place] Hematocrit (Bld) [Volume fraction] 36.7 % Normal 36.0-46.0 [facility] Comment on above: Order Comment: Speci men Type: BLOOD SPECIMEN Ordering Facility: [facility] Address: [address] [place] [address] Performed By: #### 5 7021-8 #### [facility] CLIA [id number] [address] [place] [address] [place] Hemoglobin (Bld) [Mass/Vol] 11.7 g/dL Normal 11.5-15.5 [facility] Comment on above: Order Comment: Speci men Type: BLOOD SPECIMEN Ordering Facility: [facility] Address: [address] [place] [address] Performed By: #### 5 7021-8 #### [facility] CLIA [id number] [address] [place] [address] [place] Immature granulocytes (Bld) [#/Vol] 10*3/uL Normal <0.10 [facility] Comment on above: Order Comment: Speci men Type: BLOOD SPECIMEN Ordering Facility: [facility] Address: [address] [place] [address] Performed By: #### 5 7021-8 #### [facility] CLIA [id number] [address] [place] [address] Immature granulocytes/100 WBC (Bld) 0.1 % Normal [facility] Comment on above: Order Comment: Speci men Type: BLOOD SPECIMEN Ordering Facility: [facility] Address: [address] [place] [address] Performed By: #### 5 7021-8 #### [facility] CLIA [id number] [address] [place] Lymphocytes (Bld) [#/Vol] 2.29 10*3/uL Normal 1.00-4.00 [facility] Comment on above: Order Comment: Speci men Type: BLOOD SPECIMEN Ordering Facility: [facility] Address: [address] [place] [address] Performed By: #### 5 7021-8 #### [facility] CLIA [id number] [address] [place] [address] Lymphocytes/100 WBC (Bld) 30.1 % Normal [facility] Comment on above: Order Comment: Speci men Type: BLOOD SPECIMEN Ordering Facility: [facility] Address: [address] [place] [address] Performed By: #### 5 7021-8 #### [facility] CLIA [id number] [address] [place] [address] [place] MCH (RBC) [Entitic mass] 25.7 pg Low 26.0-34.0 [facility] Comment on above: Order Comment: Speci men Type: BLOOD SPECIMEN Ordering Facility: [facility] Address: [address] [place] [address] Performed By: #### 5 7021-8 #### [facility] CLIA [id number] [address] MCHC (RBC) [Mass/Vol] 31.9 g/dL Normal 30.5-36.0 [facility] Comment on above: Order Comment: Speci men Type: BLOOD SPECIMEN Ordering Facility: [facility] Address: [address] [place] [address] Performed By: #### 5 7021-8 #### [facility] CLIA [id number] [address] [place] [address] [place] MCV (RBC) [Entitic vol] 80.7 fL Normal 80.0-100.0 [facility]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 Normal 1.0-4.8 [facility] Comment on above: Performed By: #### C DP, CP #### [facility] [address] [place] [address] Lymphocytes/100 WBC (Bld) 13 % Low 15-40 [facility] Comment on above: Performed By: #### C DP, CP #### [facility] [address] [place] [address] Monocytes #/vol (Bld) 0.50 10*3/uL Normal 0.0-1.0 [facility] Comment on above: Performed By: #### C DP, CP #### [facility] [address] [facility] [place] [address] Monocytes/100 WBC (Bld) 4 % Normal 4-8 [facility] Comment on above: Performed By: #### C DP, CP #### [facility] [address] [facility] [place] [address] Neutrophil (Seg) 79 % High 47-75 [facility] Comment on above: Performed By: #### C DP, CP #### [facility] [address] [place] [address] Erythrocyte distribution width Ratio (RBC) 14.3 % Normal 12.1-15.2 [facility] Comment on above: Performed By: #### C DP, CP #### [facility] [address] [facility] [place] [address] Hematocrit Volume Fraction (Bld) 38.7 % Normal 36-46 [facility] Comment on above: Performed By: #### C DP, CP #### [facility] [address] [facility] [place] [address] Hemoglobin mass conc (Bld) 12.3 g/dL Normal 12.0-16.0 [facility] Comment on above: Performed By: #### C DP, CP #### [facility] [address] [facility] [place] [address] MCH Entitic mass (RBC) 24.9 pg Low 26-34 [facility] Comment on above: Performed By: #### C DP, CP #### [facility] [address] [facility] [place] [address] MCHC mass conc (RBC) 31.8 g/dL Normal 31-37 [facility] Comment on above: Performed By: #### C DP, CP #### [facility] [address] [place] [address] MCV Entitic volume (RBC) 78.5 fL Low 80-100 [facility] Comment on above: Performed By: #### C DP, CP #### [facility] [address] [facility] [place] [address] Platelets #/vol (Bld) 302 10*3/uL Normal 140-450 [facility] Comment on above: Performed By: #### C DP, CP #### [facility] [address] [place] [address] RBC #/vol (Bld) 4.93 10*6/uL Normal 4.0-5.2 [facility] Comment on above: Performed By: #### C DP, CP #### [facility] [address] [facility] [place] [address] WBC #/vol (Bld) 12.5 10*3/uL High 3.5-11.0 [facility] Comment on above: Performed By: #### C DP, CP #### [facility] [address] [facility] [place] [address] Abs.Imm.Granulocyte NOT REPORTED Normal 0.00-0.30 [facility] Comment on above: Performed By: #### C DP, CP #### [facility] [address] [place] [address] Immature granulocytes #/vol (Bld) NOT REPORTED Normal 0 [facility] Comment on above: Performed By: #### C DP, CP #### [facility] [address] [facility] [place] [address] NRBC Automated NOT REPORTED Normal [facility] Comment on above: Performed By: #### C DP, CP #### [facility] [address] [facility] [place] [address] Platelet mean volume Entitic volume (Bld) NOT REPORTED Normal [facility] Comment on above: Performed By: #### C DP, CP #### [facility] [address] [place] [address] [phone] Platelets #/vol (Bld) NOT REPORTED Normal [facility] Comment on above: Performed By: #### C DP, CP #### [facility] [address] [place] [address] [phone] RBC morphology finding Nom (Bld) NOT REPORTED Normal [facility] Comment on above: Performed By: #### C DP, CP #### [facility] [address] [place] [address] [phone] WBC Morphology NOT REPORTED Normal [facility] Comment on above: Performed By: #### C DP, CP #### [facility] [address] [place] [address] [phone] Comp Metabolic Profon 2018 (cont.) Normal [facility] Comment on above: Result Comment: Aver age GFR for 30-39 years old: 107 mL/min/1.73sq m Chronic Kidney Disease: <60 mL/min/1.73sq m Kidney failure: <15 mL/min/1.73sq m eGFR calculated using average adult body mass. Additional eGFR calculator available at: http://www.[employer]nexa/multiple_crcl_2012.htm Performed By: #### U SAMEERA Ortiz #### [facility] [address] [place] [address] [phone] Albumin mass conc 4.5 g/dL Normal 3.5-5.2 [facility] Comment on above: Performed By: #### U SAMEERA Ortiz #### [facility] [address] [place] [address] [phone] Alkaline Phos 86 U/L Normal 35-104 [facility] Comment on above: Performed By: #### U A UMSTEFFO #### [facility] [address] [place] [address] [phone] ALT enzyme act/vol 9 U/L Normal 5-33 [facility] Comment on above: Performed By: #### U A, UMICAO #### [facility] [address] [place] [address] Anion gap molar conc 13 mmol/L Normal 9-17 [facility] Comment on above: Performed By: #### U A, UMICAO #### [facility] [address] [place] [address] AST enzyme act/vol 11 U/L Normal <32 [facility] Comment on above: Performed By: #### U A, UMICAO #### [facility] [address] [place] [address] Bilirubin Ql (U) 1.13 mg/dL Normal 0.30-1.20 [facility] Comment on above: Performed By: #### U Angel, UMICAO #### [facility] [address] [place] [address] BUN/CRE Ratio 7 Low 9-20 [facility] Comment on above: Performed By: #### U Angel UMICAO #### [facility] [address] [place] [address] Calcium mass conc 9.6 mg/dL Normal 8.6-10.4 [facility] Comment on above: Performed By: #### U Angel, UMICAO #### [facility] [address] [place] [address] Chloride molar conc 104 mmol/L Normal 98-107 [facility] Comment on above: Performed By: #### U A, UMICAO #### [facility] [address] [place] [address] CO2 molar conc 23 mmol/L Normal 20-31 [facility] Comment on above: Performed By: #### U A, UMICAO #### [facility] [address] [place] [address] Creatinine mass conc 0.70 mg/dL Normal 0.50-0.90 [facility] Comment on above: Performed By: #### SAMEERA Carcamo #### [facility] [address] [place] [address] GFR, Amer >60 Normal >60 [facility] Comment on above: Performed By: #### SAMEERA Carcamo #### [facility] [address] [place] [address] GFR,non Amer >60 Normal >60 [facility] Comment on above: Performed By: #### SAMEERA Carcamo #### [facility] [address] [place] [address] Glucose mass conc 154 mg/dL High 70-99 [facility] Comment on above: Performed By: #### SAMEERA Carcamo #### [facility] [address] [place] [address] Potassium molar conc 4.0 mmol/L Normal 3.7-5.3 [facility] Comment on above: Performed By: #### SAMEERA Carcamo #### [facility] [address] [place] [address] Protein mass conc 8.4 g/dL High 6.4-8.3 [facility] Comment on above: Performed By: #### SAMEERA Carcamo #### [facility] [address] [place] [address] Sodium molar conc 140 mmol/L Normal 135-144 [facility] Comment on above: Performed By: #### SAMEERA Carcamo #### [facility] [address] [place] [address] Urea nitrogen mass conc 5 mg/dL Low 6-20 [facility] Comment on above: Performed By: #### SAMEERA Carcamo #### [facility] [address] [place] [address] [phone] Albumin/Globulin mass ratio NOT REPORTED Normal 1.0-2.5 [facility] Comment on above: Performed By: #### SAMEERA Carcamo #### [facility] [address] [place] [address] [phone] Staging: NOT REPORTED Normal [facility] Comment on above: Performed By: #### SAMEERA Carcamo #### [facility] [address] [facility] [place] [address] Diff Methodon 03-26-2019 Diff Method AUTO Normal [facility] Comment on above: Performed By: #### C DP, CP #### [facility] [address] [place] [address] HCG Screen, Bloodon 03-26-20 19 HCG Qn Negative Normal NEG [facility] Comment on above: Result Comment: Spec imens with hCG levels near the threshold of the test (25 mIU/mL) may give a negative or indeterminate result. In such cases, another test should be performed with a new specimen in 48-72 hours. If early is suspected clinically in this setting, correlation with quantitative serum b-hCG level is suggested. [facility] has confirmed the use of plasma for this test. This has not been cleared or approved by the U.[place]. Food and Drug Administration. The FDA has determined that such clearance is not necessary. Performed By: #### SAMEERA Carcamo #### [facility] [address] [facility] [place] [address] [phone] Lactic Acidon 03-26-2019 Lactate molar conc 1.4 mmol/L Normal 0.5-2.2 [facility] Comment on above: Performed By: #### SAMEERA Carcamo #### [facility] [address] [facility] [address] [phone] Lactate molar conc NOT REPORTED Normal 0.7-2.1 [facility] Comment on above: Performed By: #### SAMEERA Carcamo #### [facility] [address] [facility] [place] [address] Lipaseon 03-26-2019 Lipase enzyme act/vol 17 U/L Normal 13-60 [facility] Comment on above: Performed By: #### U SAMEERA Ortiz #### [facility] [address] [place] [address] Urinalysis w/ Microon 2018 ----- Normal [facility] Comment on above: Performed By: #### C DP, CP #### [facility] [address] [place] [address] Bacteria LM.HPF #/area (Urine sed) 2+ Abnormal NONE [facility] Comment on above: Performed By: #### C DP, CP #### [facility] [address] [place] [address] Epithelial cells LM.HPF #/area (Urine sed) 5 TO 10 Normal [facility] Comment on above: Performed By: #### C DP, CP #### [facility] [address] [place] [address] Mucus Strands 3+ Abnormal NONE [facility] Comment on above: Performed By: #### C DP, CP #### [facility] [address] [place] [address] RBC #/vol (U) 0 TO 2 Normal 0-2 [facility] Comment on above: Performed By: #### C DP, CP #### [facility] [address] [place] [address] WBC #/vol (U) 5 TO 10 Normal 0 [facility] Comment on above: Performed By: #### C DP, CP #### [facility] [address] [place] [address] Acetoacetic Acid,Ur Negative Normal NEG [facility] Comment on above: Performed By: #### C DP, CP #### [address] [place] [id number] Bilirubin, SemiQt,Ur Negative Normal NEG [facility] Comment on above: Performed By: #### C DP, CP #### [facility] [address] [facility] [place] [address] Color Nom (U) YELLOW Normal YEL [facility] Comment on above: Performed By: #### C DP, CP #### [facility] [address] [place] [address] Comment Normal [facility] Comment on above: Performed By: #### C DP, CP #### [facility] [address] [place] [address] Glucose,Semi-qnt,Ur Negative Normal NEG [facility] Comment on above: Performed By: #### C DP, CP #### [facility] [address] [place] [address] Hemoglobin, Ur TRACE Abnormal NEG [facility] Comment on above: Performed By: #### C DP, CP #### [facility] [address] [place] [address] Leuckocyte Esterase 2+ Abnormal NEG [facility] Comment on above: Performed By: #### C DP, CP #### [facility] [address] [place] [address] Nitrite,Ur Negative Normal NEG [facility] Comment on above: Performed By: #### C DP, CP #### [facility] [address] [place] [address] PH,Ur 5.0 Normal 5.0-8.0 [facility] Comment on above: Performed By: #### C DP, CP #### [facility] [address] [place] [address] Protein mass conc (U) Negative Normal NEG [facility] Comment on above: Performed By: #### C DP, CP #### [facility] [address] [facility] [place] [address] Spec. [place],Ur 1.020 Normal 1.005-1.030 [facility] Comment on above: Performed By: #### C DP, CP #### [facility] [address] [facility] [place] [address] Turbidity HAZY Abnormal CLEAR [facility] Comment on above: Performed By: #### C DP, CP #### [facility] [address] [facility] [place] [address] Urobilinogen,Ur Normal Normal NORM [facility] Comment on above: Performed By: #### C DP, CP #### [facility] [address] [facility] [place] [address] Amorphous sediment LM Ql (Urine sed) NOT REPORTED Normal NONE [facility] Comment on above: Performed By: #### C DP, CP #### [facility] [address] [facility] [place] [address] Casts LM.LPF #/area (Urine sed) NOT REPORTED Normal [facility] Comment on above: Performed By: #### C DP, CP #### [facility] [address] [facility] [place] [address] Crystals LM Nom (Urine sed) NOT REPORTED Normal NONE [facility] Comment on above: Performed By: #### C DP, CP #### [facility] [address] [facility] [place] [address] Epithelial, Renal NOT REPORTED Normal 0 [facility] Comment on above: Performed By: #### C DP, CP #### [facility] [address] [facility] [place] [address] Other Observations NOT REPORTED Normal NREQ [facility] Comment on above: Performed By: #### C DP, CP #### [facility] [address] [facility] [place] [address] Trichomonas NOT REPORTED Normal NONE [facility] Comment on above: Performed By: #### C DP, CP #### [facility] [address] [place] [address] Yeast LM Ql (Urine sed) NOT REPORTED Normal NONE [facility] Comment on above: Performed By: #### C DP, CP #### [facility] [address] [place] [address] Amylaseon 03-18-2019 Amylase enzyme act/vol 51 U/L Normal 30 - 110 [facility] Comment on above: Performed By: #### L IPASE, CMP, AMYLASE #### [facility] [address] [place] [address] CBC W Auto Differentialon Abs Neut # 5.9 10 X 3/mm Normal 1.8 - 7.7 [facility] Comment on above: Performed By: #### C BC Auto Diff #### [facility] [address] [place] [address] Basophils/100 WBC (Bld) 1 % Normal 0 - 1 [facility] Comment on above: Performed By: #### C BC Auto Diff #### [facility] [address] [place] [address] Eosinophils #/vol (Bld) 0.7 10 X 3/mm High 0.0 - 0.5 [facility] Comment on above: Performed By: #### C BC Auto Diff #### [facility] [address] [place] [address] Eosinophils/100 WBC (Bld) 7 % High 0 - 5 [facility] Comment on above: Performed By: #### C BC Auto Diff #### [facility] [address] [place] [address] Erythrocyte distribution width Ratio (RBC) 17.5 % High 11.5 - 14.5 [facility] Comment on above: Performed By: #### C BC Auto Diff #### [place] [id number] [place] [address] Hematocrit Volume Fraction (Bld) 39.0 % Normal 36.0 - 47.0 [facility] Comment on above: Performed By: #### C BC Auto Diff #### [address] [address] Hemoglobin mass conc (Bld) 12.4 g/dL Normal 12.0 - 16.0 [facility] Comment on above: Performed By: #### C BC Auto Diff #### [address] [address] Lymphocytes #/vol (Bld) 2.2 10 X 3/mm Normal 1.0 - 4.0 [facility] Comment on above: Performed By: #### C BC Auto Diff #### [address] [address] Lymphocytes/100 WBC (Bld) 23 % Normal 20 - 40 [facility] Comment on above: Performed By: #### C BC Auto Diff #### [address] [address] MCH Entitic mass (RBC) 24.7 pg Low 27.0 - 35.0 [facility] Comment on above: Performed By: #### C BC Auto Diff #### [address] [address] MCHC mass conc (RBC) 31.9 g/dL Low 32.0 - 36.0 [facility] Comment on above: Performed By: #### C BC Auto Diff #### [address] [address] MCV Entitic volume (RBC) 77.4 fL Low 80.0 - 100.0 [facility] Comment on above: Performed By: #### C BC Auto Diff #### [place] [address] [place] [address] Monocytes/100 WBC (Bld) 7 % Normal 1 - 15 [facility] Comment on above: Performed By: #### C BC Auto Diff #### [place] [address] [place] [address] Neutrophils/100 WBC (Bld) 62 % Normal 50 - 70 [facility] Comment on above: Performed By: #### C BC Auto Diff #### [place] [address] [place] [address] Platelet mean volume Entitic volume (Bld) 9.0 fL Normal 7.5 - 11.5 [facility] Comment on above: Performed By: #### C BC Auto Diff #### [place] [address] [place] [address] Platelets #/vol (Bld) 285 uLx10 Normal 150 - 450 [facility] Comment on above: Performed By: #### C BC Auto Diff #### [place] [address] [place] [address] RBC #/vol (Bld) 5.03 10 X 6/mm Normal 4.20 - 5.40 [facility] Comment on above: Performed By: #### C BC Auto Diff #### [place] [address] [place] [address] WBC #/vol (Bld) 9.5 10 X 3/mm Normal 3.7 - 11.0 [facility] Comment on above: Performed By: #### C BC Auto Diff #### [place] [address] [place] [address] CT ABD/PELVIS WOon 9 CT ABD/PELVIS WO EXAM: CT ABD/PELVIS WO CLINICAL STATEMENT: Abdominal pain, history of Crohn's COMPARISON: [facility], most recent 02/18/2019 TECHNIQUE: CT examination of the abdomen and pelvis without IV contrast. Coronal and sagittal reformations were performed. Dose reduction techniques were achieved by using automated exposure control and/or adjustment of mA and/or kV according to patient size and/or use of iterative reconstruction technique. FINDINGS: The lung bases are clear. Heart size is stable. No pleural pericardial effusion. The liver demonstrates normal morphology and attenuation on this unenhanced study. No focal hepatic lesion identified. Gallbladder is likely surgically absent. The spleen, pancreas and adrenal glands are unremarkable. The kidneys demonstrate a normal unenhanced appearance. No obstructive uropathy or nephroureterolithiasis. There is no free air, bowel obstruction or pneumatosis. The appendix is normal. There is no abnormal bowel wall thickening on this unenhanced study. The bladder is minimally distended. The uterus and ovaries are present. No abnormal pelvic soft tissue mass or fluid identified. The abdominal aorta is normal. No retroperitoneal or abdominal pelvic lymphadenopathy. No acute or aggressive osseous abnormality identified. IMPRESSION: No acute infectious, inflammatory or obstructive process in the abdomen or pelvis. Report electronically signed by: Dr. Fernie Elliott Normal [facility] Comprehensive Metabolic Pane guille 03-18-2019 GFR/1.73 sq M predicted among non-blacks MDRD vol rate/area (S/P/Bld) 125.[address] [facility] Comment on above: Result Comment: eGFR Interpretation: Normal: Equal to or greater than 60 mL/min/1.73 meters squared Chronic Kidney Disease: Less than 60 mL/min/1.73 meters squared Kidney Failure: Less than 15 mL/min/1.73 meters squared Performed By: #### L IPASE, CMP, AMYLASE #### [id number] [place] [address] GFR/1.73 sq M predicted among non-blacks MDRD vol rate/area (S/P/Bld) 118.[address] [facility] Comment on above: Result Comment: eGFR Interpretation: Normal: Equal to or greater than 60 mL/min/1.73 meters squared Chronic Kidney Disease: Less than 60 mL/min/1.73 meters squared Kidney Failure: Less than 15 mL/min/1.73 meters squared Performed By: #### L IPASE, CMP, AMYLASE #### [id number] [place] [address] GFR/1.73 sq M predicted among non-blacks MDRD vol rate/area (S/P/Bld) 129.[address] [facility] Comment on above: Result Comment: eGFR Interpretation: Normal: Equal to or greater than 60 mL/min/1.73 meters squared Chronic Kidney Disease: Less than 60 mL/min/1.73 meters squared Kidney Failure: Less than 15 mL/min/1.73 meters squared Performed By: #### L IPASE, CMP, AMYLASE #### [address] [address] GFR/1.73 sq M predicted among non-blacks MDRD vol rate/area (S/P/Bld) 192.10 [facility] Comment on above: Performed By: #### L IPASE, CMP, AMYLASE #### [address] [address] GFR/1.73 sq M predicted among non-blacks MDRD vol rate/area (S/P/Bld) 166.[address] [facility] Comment on above: Result Comment: eGFR Interpretation: Normal: Equal to or greater than 60 mL/min/1.73 meters squared Chronic Kidney Disease: Less than 60 mL/min/1.73 meters squared Kidney Failure: Less than 15 mL/min/1.73 meters squared Performed By: #### L IPASE, CMP, AMYLASE #### [address] [address] GFR/1.73 sq M predicted among non-blacks MDRD vol rate/area (S/P/Bld) 137.09 [facility] Comment on above: Performed By: #### L IPASE, CMP, AMYLASE #### [address] [place] [address] GFR/1.73 sq M predicted among non-blacks MDRD vol rate/area (S/P/Bld) 144.[address] [facility] Comment on above: Performed By: #### L IPASE, CMP, AMYLASE #### [facility] [address] [place] [address] GFR/1.73 sq M predicted among non-blacks MDRD vol rate/area (S/P/Bld) 149.[address] [facility] Comment on above: Performed By: #### L IPASE, CMP, AMYLASE #### [address] [address] Age Reported 28 year(s) Normal [facility] Comment on above: Performed By: #### L IPASE, CMP, AMYLASE #### [address] [address] Albumin mass conc 4.3 g/dL Normal 3.5 - 5.0 [facility] Comment on above: Performed By: #### L IPASE, CMP, AMYLASE #### [id number] [place] [address] ALP enzyme act/vol 80 U/L Normal 38 - 126 [facility] Comment on above: Performed By: #### L IPASE, CMP, AMYLASE #### [id number] [place] [address] ALT enzyme act/vol 28 U/L Normal 0 - 35 [facility] Comment on above: Performed By: #### L IPASE, CMP, AMYLASE #### [address] [place] [address] AST enzyme act/vol 35 U/L Normal 14 - 36 [facility] Comment on above: Performed By: #### L IPASE, CMP, AMYLASE #### [address] [place] [address] Bilirubin mass conc 1.2 mg/dL Normal 0.2 - 1.3 [facility] Comment on above: Performed By: #### L IPASE, CMP, AMYLASE #### [address] [place] [address] Calcium mass conc 9.5 mg/dL Normal 8.4 - 10.2 [facility] Comment on above: Performed By: #### L IPASE, CMP, AMYLASE #### [address] [address] Chloride molar conc 102 mmol/L Normal 98 - 107 [facility] Comment on above: Performed By: #### L IPASE, CMP, AMYLASE #### [address] [address] CO2 molar conc 23 mmol/L Normal 22 - 32 [facility] Comment on above: Performed By: #### L IPASE, CMP, AMYLASE #### [address] [address] Creatinine mass conc 0.66 mg/dL Normal 0.52 - 1.04 [facility] Comment on above: Performed By: #### L IPASE, CMP, AMYLASE #### [address] [address] Glucose mass conc 87 mg/dL Normal 65 - 100 [facility] Comment on above: Performed By: #### L IPASE, CMP, AMYLASE #### [address] [address] Potassium molar conc 4.6 mmol/L Normal 3.6 - 5.0 [facility] Comment on above: Performed By: #### L IPASE, CMP, AMYLASE #### [address] [address] Protein mass conc 7.7 g/dL Normal 6.3 - 8.2 [facility] Comment on above: Performed By: #### L IPASE, CMP, AMYLASE #### [facility] [address] [place] [address] Sodium molar conc 136 mmol/L Normal 135 - 145 [facility] Comment on above: Performed By: #### L IPASE, CMP, AMYLASE #### [address] [address] Urea nitrogen mass conc 6 mg/dL Low 7 - 17 [facility] Comment on above: Performed By: #### L IPASE, CMP, AMYLASE #### [address] [address] Lipaseon 03-18-2019 Lipase enzyme act/vol 81 U/L Normal 23 - 300 [facility] Comment on above: Performed By: #### L IPASE, CMP, AMYLASE #### [address] [address] hCG, Qualitative-Serumon Internal Control ACCEPTABLE Normal [facility] Comment on above: Performed By: #### H CG,QUAL SERUM #### [address] [address] hCG, Qualitative-Serum Negative Normal NEGATIVE [facility] Comment on above: Performed By: #### H CG,QUAL SERUM #### [id number] [place] [address] Age at specimen collection = Normal [facility] Comment on above: Performed By: #### H CG,QUAL SERUM #### [address] [address] Performed By: #### C BC Auto Diff #### [address] [address] [place], [place] [id number] Performed By: #### L IPASE, CMP, AMYLASE #### [id number] [place], [place] [id number] CBCon 02-26-2019 ABSOLUTE BAS 0.1 X10 Normal [facility] Comment on above: Performed By: #### A CBC ####Testing performed at [address] [address] ABSOLUTE EOS 0.10 X10 Normal [facility] Comment on above: Performed By: #### A CBC ####Testing performed at [address] [address] ABSOLUTE NEUTROPHIL COUNT 6.2 x10 Normal 1.0-7.0 [facility] Comment on above: Performed By: #### A CBC ####Testing performed at [address] [address] Basophils/100 WBC (Bld) 1.2 % Normal 0.0-2.0 [facility] Comment on above: Performed By: #### A CBC ####Testing performed at [address] [address] DTYPE AUTO DIFF Normal [facility] Comment on above: Performed By: #### A CBC ####Testing performed at [address] [address] Eosinophils/100 WBC (Bld) 1.5 % Normal 0.0-11.0 [facility] Comment on above: Performed By: #### A CBC ####Testing performed at [address] [address] Lymphocytes #/vol (Bld) 2.40 X10 Normal [facility] Comment on above: Performed By: #### A CBC ####Testing performed at [address] [address] Lymphocytes/100 WBC (Bld) 25.7 % Normal 20.0-55.0 [facility] Comment on above: Performed By: #### A CBC ####Testing performed at [address] [address] Monocytes #/vol (Bld) 0.5 X10 Normal [facility] Comment on above: Performed By: #### A CBC ####Testing performed at [address] [address] Monocytes/100 WBC (Bld) 5.2 % Normal 0.0-10.0 [facility] Comment on above: Performed By: #### A CBC ####Testing performed at [address] [address] Neutrophils/100 WBC (Bld) 66.4 % Normal 37.0-75.0 [facility] Comment on above: Performed By: #### A CBC ####Testing performed at [address] [address] Erythrocyte distribution width Ratio (RBC) 17.6 % High 11.5-14.5 [facility] Comment on above: Performed By: #### A CBC ####Testing performed at [address] [address] Hematocrit Volume Fraction (Bld) 36.7 % Normal 36.0-48.0 [facility] Comment on above: Performed By: #### A CBC ####Testing performed at [address] [address] Hemoglobin mass conc (Bld) 11.8 g/dL Low 12.0-16.0 [facility] Comment on above: Performed By: #### A CBC ####Testing performed at [address] [address] MCH Entitic mass (RBC) 24.5 pg Low 26.0-35.0 [facility] Comment on above: Performed By: #### A CBC ####Testing performed at [place] [id number] MCHC mass conc (RBC) 32.3 g/dL Normal 27.0-37.0 [facility] Comment on above: Performed By: #### A CBC ####[place] [address] MCV Entitic volume (RBC) 75.9 fL Low 80.0-100.0 [facility] Comment on above: Performed By: #### A CBC ####[place] [address] Platelet mean volume Entitic volume (Bld) 8.1 fL Normal 7.4-11.0 [facility] Comment on above: Performed By: #### A CBC ####[place] [address] Platelets #/vol (Bld) 320 /cmm Normal 130.0-400.0 [facility] Comment on above: Performed By: #### A CBC ####[place] [address] RBC #/vol (Bld) 4.83 /cmm Normal 4.0-5.4 [facility] Comment on above: Performed By: #### A CBC ####[place] [address] WBC #/vol (Bld) 9.3 /cmm Normal 3.6-11.0 [facility] Comment on above: Performed By: #### A CBC ####[place] [address] CMP FASTINGon 02-26-2019 A:G RATIO 1.2 RATIO Low 1.3-2.2 [facility] Comment on above: Performed By: #### A CBC ####Testing performed at [address] [place] [address] Albumin mass conc 4.6 G/dl Normal 3.5-5.0 [facility] Comment on above: Performed By: #### A CBC ####Testing performed at [address] [address] ALP enzyme act/vol 85 U/L Normal 38-126 [facility] Comment on above: Performed By: #### A CBC ####Testing performed at [address] [address] ALT enzyme act/vol 17 U/L Normal 9-52 [facility] Comment on above: Performed By: #### A CBC ####Testing performed at [place] [id number] AST enzyme act/vol 22 U/L Normal 14-36 [facility] Comment on above: Performed By: #### A CBC ####Testing performed at [address] [address] Bilirubin mass conc 1.0 mg/dL Normal 0.2-1.3 [facility] Comment on above: Performed By: #### A CBC ####Testing performed at [address] [address] Calcium mass conc 9.3 mg/dL Normal 8.4-10.2 [facility] Comment on above: Performed By: #### A CBC ####Testing performed at [address] [address] Chloride molar conc 102 mmol/L Normal 98-107 [facility] Comment on above: Result Comment: Plea se note: Triglyceride levels of 600mg/dL or higher may positively bias chloride results by approximately 2.1 mmol Performed By: #### A CBC ####Testing performed at [address] [address] CO2 molar conc 27 mmol/L Normal 22-30 [facility] Comment on above: Performed By: #### A CBC ####Testing performed at [address] [address] Creatinine mass conc 0.8 mg/dL Normal 0.7-1.2 [facility] Comment on above: Performed By: #### A CBC ####Testing performed at [address] [address] EST. GFR, >60 Normal [facility] Comment on above: Performed By: #### A CBC ####Testing performed at [address] [address] EST. GFR,Non >60 Normal [facility] Comment on above: Performed By: #### A CBC ####Testing performed at [address] [address] GFR/1.73 sq M predicted among non-blacks MDRD vol rate/area (S/P/Bld) Average GFR for 30-39 years old = 109. Normal [facility] Comment on above: Result Comment: Lead [employer] Systems Analyst frantz Kidney disease, GFR = <60. Kidney failure, GFR = <15. The GFR estimate is not adjusted for extreme body surface area or acute process, nor has it been validated for women or ethnic groups other than and . Performed By: #### A CBC ####Testing performed at [address] [address] Glucose mass conc 91 mg/dL Normal 70-100 [facility] Comment on above: Result Comment: NORMAL <100 mg/dL PREDIABETES 101-126 mg/dL DIABETES 126 mg/dL or higher Performed By: #### A CBC ####Testing performed at [address] [address] Potassium molar conc 4.0 mmol/L Normal 3.5-5.1 [facility] Comment on above: Performed By: #### A CBC ####Testing performed at [address] [address] Protein mass conc 8.4 g/dL High 6.3-8.2 [facility] Comment on above: Performed By: #### A CBC ####Testing performed at [address] [address] Sodium molar conc 139 mmol/L Normal 137-145 [facility] Comment on above: Performed By: #### A CBC ####Testing performed at [address] [address] Urea nitrogen mass conc 8 mg/dL Normal 7-20 [facility] Comment on above: Performed By: #### A CBC ####Testing performed at [address] [address] ESRon 02-26-2019 ESR Velocity (Bld) 59 mm/h High 0-15 [facility] LIPASE,SERUMon 02-26-2019 LIPASE,SERUM 53 U/L Normal 23-300 [facility] Comment on above: Performed By: #### A CBC ####Testing performed at [address] [address] CBCon 02-18-2019 ABSOLUTE BAS 0.1 X10 Normal [facility] Comment on above: Performed By: #### A CBC, CMPF ####Testing performed at [address] [address] ABSOLUTE EOS 0.40 X10 Normal [facility] Comment on above: Performed By: #### A CBC, CMPF ####Testing performed at [address] [address] ABSOLUTE NEUTROPHIL COUNT 5.4 x10 Normal 1.0-7.0 [facility] Comment on above: Performed By: #### A CBC, CMPF ####Testing performed at [address] [address] Basophils/100 WBC (Bld) 0.6 % Normal 0.0-2.0 [facility] Comment on above: Performed By: #### A CBC, CMPF ####Testing performed at [place] [address] [address] [facility] [place] [address] DTYPE AUTO DIFF Normal [facility] Comment on above: Performed By: #### A CBC, CMPF ####Testing performed at [address] [place] [address] Eosinophils/100 WBC (Bld) 4.0 % Normal 0.0-11.0 [facility] Comment on above: Performed By: #### A CBC, CMPF ####Testing performed at [address] [place] [address] Lymphocytes #/vol (Bld) 2.30 X10 Normal [facility] Comment on above: Performed By: #### A CBC, CMPF ####Testing performed at [address] [place] [address] Lymphocytes/100 WBC (Bld) 26.0 % Normal 20.0-55.0 [facility] Comment on above: Performed By: #### A CBC, CMPF ####Testing performed at [address] [place] [address] Monocytes #/vol (Bld) 0.6 X10 Normal [facility] Comment on above: Performed By: #### A CBC, CMPF ####Testing performed at [address] [place] [address] Monocytes/100 WBC (Bld) 7.1 % Normal 0.0-10.0 [facility] Comment on above: Performed By: #### A CBC, CMPF ####Testing performed at [address] [place] [address] Neutrophils/100 WBC (Bld) 62.3 % Normal 37.0-75.0 [facility] Comment on above: Performed By: #### A CBC, CMPF ####Testing performed at [address] [place] [address] Erythrocyte distribution width Ratio (RBC) 17.1 % High 11.5-14.5 [facility] Comment on above: Performed By: #### A CBC, CMPF ####Testing performed at [address] [address] Hematocrit Volume Fraction (Bld) 36.7 % Normal 36.0-48.0 [facility] Comment on above: Performed By: #### A CBC, CMPF ####Testing performed at [address] [address] Hemoglobin mass conc (Bld) 11.8 g/dL Low 12.0-16.0 [facility] Comment on above: Performed By: #### A CBC, CMPF ####Testing performed at [address] [address] MCH Entitic mass (RBC) 24.5 pg Low 26.0-35.0 [facility] Comment on above: Performed By: #### A CBC, CMPF ####Testing performed at [address] [address] MCHC mass conc (RBC) 32.2 g/dL Normal 27.0-37.0 [facility] Comment on above: Performed By: #### A CBC, CMPF ####Testing performed at [address] [address] MCV Entitic volume (RBC) 75.9 fL Low 80.0-100.0 [facility] Comment on above: Performed By: #### A CBC, CMPF ####Testing performed at [address] [address] Platelet mean volume Entitic volume (Bld) 8.2 fL Normal 7.4-11.0 [facility] Comment on above: Performed By: #### A CBC, CMPF ####Testing performed at [address] [address] Platelets #/vol (Bld) 283 /cmm Normal 130.0-400.0 [facility] Comment on above: Performed By: #### A CBC, CMPF ####Testing performed at [address] [address] RBC #/vol (Bld) 4.83 /cmm Normal 4.0-5.4 [facility] Comment on above: Performed By: #### A CBC, CMPF ####Testing performed at [address] [address] WBC #/vol (Bld) 8.8 /cmm Normal 3.6-11.0 [facility] Comment on above: Performed By: #### A CBC, CMPF ####Testing performed at [address] [address] CMP FASTINGon 02-18-2019 Potassium molar conc 3.8 mmol/L Normal 3.5-5.1 [facility] Comment on above: Performed By: #### A CBC, CMPF ####Testing performed at [address] [address] A:G RATIO 1.2 RATIO Low 1.3-2.2 [facility] Comment on above: Performed By: #### A CBC, CMPF ####Testing performed at [address] [address] Albumin mass conc 4.6 G/dl Normal 3.5-5.0 [facility] Comment on above: Performed By: #### A CBC, CMPF ####Testing performed at [address] [address] ALP enzyme act/vol 78 U/L Normal 38-126 [facility] Comment on above: Performed By: #### A CBC, CMPF ####Testing performed at [address] [address] ALT enzyme act/vol 18 U/L Normal 9-52 [facility] Comment on above: Performed By: #### A CBC, CMPF ####Testing performed at [address] [address] AST enzyme act/vol 18 U/L Normal 14-36 [facility] Comment on above: Performed By: #### A CBC, CMPF ####Testing performed at [address] [address] Bilirubin mass conc 1.1 mg/dL Normal 0.2-1.3 [facility] Comment on above: Performed By: #### A CBC, CMPF ####Testing performed at [address] [address] Calcium mass conc 9.0 mg/dL Normal 8.4-10.2 [facility] Comment on above: Performed By: #### A CBC, CMPF ####Testing performed at [address] [address] Chloride molar conc 104 mmol/L Normal 98-107 [facility] Comment on above: Result Comment: Plea note: Triglyceride levels of 600mg/dL or higher may positively bias chloride results by approximately 2.1 mmol Performed By: #### A CBC, CMPF ####Testing performed at [address] [address] CO2 molar conc 26 mmol/L Normal 22-30 [facility] Comment on above: Performed By: #### A CBC, CMPF ####Testing performed at [address] [address] Creatinine mass conc 1.1 mg/dL Normal 0.7-1.2 [facility] Comment on above: Performed By: #### A CBC, CMPF ####Testing performed at [address] [address] EST. GFR, >60 Normal [facility] Comment on above: Performed By: #### A CBC, CMPF ####Testing performed at [address] [address] EST. GFR,Non >60 Normal [facility] Comment on above: Performed By: #### A CBC, CMPF ####[place] [address] GFR/1.73 sq M predicted among non-blacks MDRD vol rate/area (S/P/Bld) Average GFR for 30-39 years old = 109. Normal [facility] Comment on above: Result Comment: Lead Business Systems Analyst frantz Kidney disease, GFR = <60. Kidney failure, GFR = <15. The GFR estimate is not adjusted for extreme body surface area or acute process, nor has it been validated for women or ethnic groups other than and . Performed By: #### A CBC, CMPF ####[place] [address] Glucose mass conc 79 mg/dL Normal 70-100 [facility] Comment on above: Result Comment: NORMAL <100 mg/dL PREDIABETES 101-126 mg/dL DIABETES 126 mg/dL or higher Performed By: #### A CBC, CMPF ####[place] [address] Protein mass conc 8.3 g/dL High 6.3-8.2 [facility] Comment on above: Performed By: #### A CBC, CMPF ####Testing performed at [place] [id number] Sodium molar conc 142 mmol/L Normal 137-145 [facility] Comment on above: Performed By: #### A CBC, CMPF ####[place] [address] Urea nitrogen mass conc 6 mg/dL Low 7-20 [facility] Comment on above: Performed By: #### A CBC, CMPF ####Testing performed at [place] [id number] CT ABDOMEN/PELVIS WITHOUT CO NTRASTon 02-18-2019 CT ABDOMEN/PELVIS WITHOUT CONTRAST EXAM: CT ABDOMEN/PELVIS WITHOUT CONTRAST CLINICAL STATEMENT: Laparoscopic colonic resection 15 years ago. Lower abdominal pain with a history of Crohn's disease. COMPARISON: 08/31/2018 and 07/31/2018. TECHNIQUE: CT examination of the abdomen and pelvis without IV contrast. Coronal and sagittal reformations were performed. Dose reduction techniques were achieved by using automated exposure control and/or adjustment of mA and/or kV according to patient size and/or use of iterative reconstruction technique. FINDINGS: The imaged heart is normal in size. There is mild bibasilar pulmonary atelectasis. The noncontrast liver, spleen and pancreas appear normal. The gallbladder is absent. There is no adrenal mass. There is no nephrolithiasis or obstructive uropathy. The urinary bladder is within normal limits. The uterus and ovaries are not enlarged. The colon is largely decompressed with a mild stool burden present. There is a tiny hiatus hernia. There is no bowel obstruction. The terminal ileum appears normal. The appendix appears normal. There is no pneumoperitoneum or ascites. No lymphadenopathy is seen. There is no acute osseous pathology. IMPRESSION: 1. No bowel obstruction or localized inflammation seen. Normal-appearing terminal ileum. Normal caliber appendix. 2. Unremarkable noncontrast solid organs of the abdomen and pelvis. 3. Prior cholecystectomy. Normal [facility] ESRon 02-18-2019 ESR Velocity (Bld) 49 mm/h High 0-15 [facility] Comment on above: Performed By: #### E SR ####[place] [address] URINE CULTUREon 02-18-2019 Bacteria identified Cx Nom (U) SPECIMEN DESCRIPTION URINE CLEAN CATCH UA DIPSTICK LEUKOCYTE POSITIVE * Result Note: NITRITE NEGATIVE * CULTURE NO GROWTH 1 DAY * Result Note: Testing performed at [place] [address] * REPORT STATUS PENDING Normal [facility] Comment on above: Performed By: #### A URNC ####Testing performed at [place] [id number] performed at [place] [id number] URINE HCG QUALon 02-18-2019 HCG.beta subunit ( test) Ql (U) Negative Normal [facility] Comment on above: Performed By: #### U HCGT ####Testing performed at [address] [address] URINE MACROSCOPICon 02-19-20 19 Bilirubin Ql (U) Negative Normal NEGATIVE [facility] Comment on above: Performed By: #### U HCGT ####Testing performed at [address] [address] Clarity Nom (U) CLEAR Normal CLEAR [facility] Comment on above: Performed By: #### U HCGT ####Testing performed at [address] [address] Color Nom (U) YELLOW Normal YELLOW [facility] Comment on above: Performed By: #### U HCGT ####Testing performed at [address] [address] Glucose Ql (U) Negative Normal NEGATIVE [facility] Comment on above: Performed By: #### U HCGT ####Testing performed at [address] [place] [address] pH (U) 5.5 [pH] Normal 5.0-7.0 [facility] Comment on above: Performed By: #### U HCGT ####Testing performed at [address] [address] Protein mass conc (U) Negative Normal NEGATIVE [facility] Comment on above: Performed By: #### U HCGT ####Testing performed at [address] [place] [address] URINE HEMOGLOBIN TRACE-LYSED Abnormal NEGATIVE [facility] Comment on above: Performed By: #### U HCGT ####Testing performed at [address] [place] [address] URINE KETONE Negative Normal NEGATIVE [facility] Comment on above: Performed By: #### U HCGT ####Testing performed at [address] [address] URINE LEUKOTEST TRACE Abnormal NEGATIVE [facility] Comment on above: Performed By: #### U HCGT ####Testing performed at [address] [address] URINE NITRATES Negative Normal NEGATIVE [facility] Comment on above: Performed By: #### U HCGT ####Testing performed at [address] [address] URINE SPEC GRAVITY 1.020 Normal 1.010-1.025 [facility] Comment on above: Performed By: #### U HCGT ####Testing performed at [address] [address] Urobilinogen Qn (U) 0.2 mg/dl Normal 0.2-1.0 [facility] Comment on above: Performed By: #### U HCGT ####Testing performed at [address] [address] URINE MICROSCOPICon 02-19-20 19 Bacteria LM.HPF #/area (Urine sed) TRACE Abnormal NEGATIVE [facility] Comment on above: Performed By: #### U HCGT ####Testing performed at [address] [address] Casts LM.LPF #/area (Urine sed) NONE Normal [facility] Comment on above: Performed By: #### U HCGT ####Testing performed at [address] [address] CRYSTAL NONE Normal [facility] Comment on above: Performed By: #### U HCGT ####Testing performed at [address] [address] Epithelial cells LM.HPF #/area (Urine sed) 1 TO 5 Normal [facility] Comment on above: Performed By: #### U HCGT ####Testing performed at [address] [place] [address] Mucus Ql (Urine sed) Negative Normal NEGATIVE [facility] Comment on above: Performed By: #### U HCGT ####Testing performed at [address] [address] RBC #/vol (U) 1 TO 5 Normal NEGATIVE [facility] Comment on above: Performed By: #### U HCGT ####Testing performed at [address] [address] URINE COMMENT REFLEX CULTURE PER ESTABLISHED CRITERIA. Normal [facility] Comment on above: Performed By: #### U HCGT ####Testing performed at [address] [address] WBC #/vol (U) 1 TO 5 Normal NEGATIVE [facility] Comment on above: Performed By: #### U HCGT ####Testing performed at [address] [address] Organism ID w/ [id number] Organism ID w/ Sensi Specimen Descriptio n .FECES Special Requests NOT REPORTED Culture NO SHIGELLA SP. ISOLATED Nucleic acid detected, but organism was not recovered in culture. Susceptibility testing cannot be performed. Report Status FINAL 02/08/2019 [facility] Comment on above: Performed By: #### C DP #### [id number] [place], [place] [id number] #### [facility] #### [facility] [address] [place] [address] Stool PCR Batter[place] 02-10-20 19 Shigella sp PCR Positive Abnormal SHINEG [facility] Comment on above: Result Comment: Analytical studies have demonstrated that certain strains of Shigella dysenteriae may harbor both the ipaH and stx BD MAX Enteric Bacterial Panel targets. Additionally, there have been literature reports of S. boudii strains presenting with both ipaH and stx. On rare occasions it may be possible that more than one BD MAX Enteric Bacterial Panel target is positive from a single organism that harbors two or more genes detected by the assay. The presence of more than one positive BD MAX Enteric Panel target may also be indicative of a dual-infection. A positive BD MAX Enteric Bacterial Panel result for Shigella spp. may be indicative of the presence of Shigella spp. or Enteroinvasive E. coli DNA. Results reported to the appropriate Health Department Nucleic acid detected, but organism was not recovered in culture. Susceptibility testing cannot be performed. Performed By: #### C DP #### [address] [address] #### TROPI, BMP #### [address] [place] [address] CBC with Diffon 02-08-2019 Abs. Basophil 0.04 k/uL Normal 0.00-0.20 [facility] Comment on above: Performed By: #### C DP #### [address] [address] #### TROPI, BMP #### [address] [place] [address] Abs.Imm.Granulocyte 0.05 k/uL Normal 0.00-0.[address] [facility] Comment on above: Performed By: #### C DP #### [address] [address] #### TROPI, BMP #### [address] [place] [address] Abs.Neutrophil (Seg) 5.19 k/uL Normal 1.50-8.10 [facility] Comment on above: Performed By: #### C DP #### [address] [address] #### TROPI, BMP #### [address] [place] [address] Basophils/100 WBC (Bld) 1 % Normal 0-[address] [facility] Comment on above: Performed By: #### C DP #### [address] [address] #### TROPI, BMP #### [address] [place] [address] Eosinophils #/vol (Bld) 10*3/uL Normal 0.00-0.[address] [facility] Comment on above: Performed By: #### C DP #### [address] [address] #### TROPI, BMP #### [address] [place] [address] Eosinophils/100 WBC (Bld) 0 % Low 1-[address] [facility] Comment on above: Performed By: #### C DP #### [address] [address] #### TROPI, BMP #### [address] [place] [address] Erythrocyte distribution width Ratio (RBC) 15.6 % High 11.8-14.[address] [facility] Comment on above: Performed By: #### C DP #### [address] [address] #### TROPI, BMP #### [address] [place] [address] Hematocrit Volume Fraction (Bld) 37.1 % Normal 36.3-47.[address] [facility] Comment on above: Performed By: #### C DP #### [address] [address] #### TROPI, BMP #### [address] [place] [address] Hemoglobin mass conc (Bld) 11.2 g/dL Low 11.9-15.[address] [facility] Comment on above: Performed By: #### C DP #### [address] [address] #### TROPI, BMP #### [address] [place] [address] Immature granulocytes #/vol (Bld) 1 % High [address] [facility] Comment on above: Performed By: #### C DP #### [address] [address] #### TROPI, BMP #### [address] [place] [address] Lymphocytes #/vol (Bld) 2.13 10*3/uL Normal 1.10-3.[address] [facility] Comment on above: Performed By: #### C DP #### [address] [address] #### TROPI, BMP #### [address] [place] [id number] Lymphocytes/100 WBC (Bld) 27 % Normal 24-[address] [facility] Comment on above: Performed By: #### C DP #### [address] [address] #### TROPI, BMP #### [address] [place] [address] MCH Entitic mass (RBC) 24.3 pg Low 25.2-33.[address] [facility] Comment on above: Performed By: #### C DP #### [address] [address] #### TROPI, BMP #### [address] [place] [address] MCHC mass conc (RBC) 30.2 g/dL Normal 28.4-34.8 [facility] Comment on above: Performed By: #### C DP #### [address] [address] #### TROPI, BMP #### [address] [place] [address] MCV Entitic volume (RBC) 80.7 fL Low 82.6-102.[address] [facility] Comment on above: Performed By: #### C DP #### [address] [address] #### TROPI, BMP #### [address] [place] [address] Monocytes #/vol (Bld) 0.45 10*3/uL Normal 0.10-1.20 [facility] Comment on above: Performed By: #### C DP #### [address] [address] #### TROPI, BMP #### [address] [place] [address] Monocytes/100 WBC (Bld) 6 % Normal 3-[address] [facility] Comment on above: Performed By: #### C DP #### [address] [address] #### TROPI, BMP #### [address] [place] [address] Neutrophil (Seg) 65 % Normal 36-65 [facility] Comment on above: Performed By: #### C DP #### [address] [address] #### TROPI, BMP #### [address] [place] [address] NRBC Automated 0.0 per 100 WBC Normal 0.[address] [facility] Comment on above: Performed By: #### C DP #### [address] [address] #### TROPI, BMP #### [address] [place] [address] Platelet mean volume Entitic volume (Bld) 10.5 fL Normal 8.1-13.5 [facility] Comment on above: Performed By: #### C DP #### [address] [address] #### TROPI, BMP #### [address] [place] [address] Platelets #/vol (Bld) 258 10*3/uL Normal 138-453 [facility] Comment on above: Performed By: #### C DP #### [address] [address] #### TROPI, BMP #### [address] [place] [address] RBC #/vol (Bld) 4.60 10*6/uL Normal 3.95-5.11 [facility] Comment on above: Performed By: #### C DP #### [address] [address] #### TROPI, BMP #### [address] [place] [address] WBC #/vol (Bld) 7.9 10*3/uL Normal 3.5-11.3 [facility] Comment on above: Performed By: #### C DP #### [address] [address] #### TROPI, BMP #### [address] [place] [address] Auto Diff Performed NOT REPORTED [facility] Comment on above: Performed By: #### C DP #### [address] [address] #### TROPI, BMP #### [address] [place] [address] Platelets #/vol (Bld) NOT REPORTED Normal [facility] Comment on above: Performed By: #### C DP #### [address] [address] #### TROPI, BMP #### [address] [place] [address] RBC morphology finding Nom (Bld) NOT REPORTED Normal [facility] Comment on above: Performed By: #### C DP #### [address] [address] #### TROPI, BMP #### [address] [place] [address] WBC Morphology NOT REPORTED Normal [facility] Comment on above: Performed By: #### C DP #### [address] [address] #### TROPI, BMP #### [address] [place] [address] Comp Metabolic Pr/rfx MGon 0 - Potassium molar conc 3.5 mmol/L Low 3.7-5.3 [facility] Comment on above: Performed By: #### C DP #### [address] [address] #### TROPI, BMP #### [address] [place] [address] (cont.) Normal [facility] Comment on above: Result Comment: Aver age GFR for 30-39 years old: 107 mL/min/1.73sq m Chronic Kidney Disease: <60 mL/min/1.73sq m Kidney failure: <15 mL/min/1.73sq m eGFR calculated using average adult body mass. Additional eGFR calculator available at: http://www.[employer].com/multiple_crcl_2012.htm Performed By: #### C DP #### [address] [address] #### TROPI, BMP #### [address] [place] [address] Albumin mass conc 4.0 g/dL Normal 3.5-5.2 [facility] Comment on above: Performed By: #### C DP #### [address] [address] #### TROPI, BMP #### [address] [place] [address] Albumin/Globulin mass ratio 1.2 {ratio} Normal 1.0-2.[address] [facility] Comment on above: Performed By: #### C DP #### [address] [address] #### TROPI, BMP #### [address] [place] [address] Alkaline Phos 88 U/L Normal 35-104 [facility] Comment on above: Performed By: #### C DP #### [address] [address] #### TROPI, BMP #### [address] [place] [address] ALT enzyme act/vol 9 U/L Normal 5-[address] [facility] Comment on above: Performed By: #### C DP #### [address] [address] #### TROPI, BMP #### [address] [place] [address] Anion gap molar conc 11 mmol/L Normal 9-17 [facility] Comment on above: Performed By: #### C DP #### [address] [address] #### TROPI, BMP #### [address] [place] [address] AST enzyme act/vol 10 U/L Normal <[address] [facility] Comment on above: Performed By: #### C DP #### [address] [address] #### TROPI, BMP #### [address] [place] [address] Bilirubin Ql (U) 0.66 mg/dL Normal 0.3-1.2 [facility] Comment on above: Performed By: #### C DP #### [address] [address] #### TROPI, BMP #### [address] [place] [address] BUN/CRE Ratio 11 Normal 9-20 [facility] Comment on above: Performed By: #### C DP #### [address] [address] #### TROPI, BMP #### [address] [place] [address] Calcium mass conc 9.4 mg/dL Normal 8.6-10.4 [facility] Comment on above: Performed By: #### C DP #### [address] [address] #### TROPI, BMP #### [address] [place] [address] Chloride molar conc 104 mmol/L Normal 98-[address] [facility] Comment on above: Performed By: #### C DP #### [address] [address] #### TROPI, BMP #### [address] [place] [address] CO2 molar conc 26 mmol/L Normal 20-31 [facility] Comment on above: Performed By: #### C DP #### [address] [address] #### TROPI, BMP #### [address] [place] [address] Creatinine mass conc 0.74 mg/dL Normal 0.50-0.90 [facility] Comment on above: Performed By: #### C DP #### [address] [address] #### TROPI, BMP #### [address] [place] [address] GFR, Amer >60 Normal >60 [facility] Comment on above: Performed By: #### C DP #### [address] [address] #### TROPI, BMP #### [address] [place] [address] GFR,non Amer >60 Normal >60 [facility] Comment on above: Performed By: #### C DP #### [address] [address] #### TROPI, BMP #### [address] [place] [address] Glucose mass conc 115 mg/dL High 70-99 [facility] Comment on above: Performed By: #### C DP #### [address] [address] #### TROPI, BMP #### [address] [place] [address] Protein mass conc 7.3 g/dL Normal 6.4-8.3 [facility] Comment on above: Performed By: #### C DP #### [address] [address] #### TROPI, BMP #### [address] [place] [address] Sodium molar conc 141 mmol/L Normal 135-144 [facility] Comment on above: Performed By: #### C DP #### [address] [address] #### TROPI, BMP #### [address] [place] [address] Staging: Normal [facility] Comment on above: Result Comment: Stag e 1: Some kidney damage normal GFR Stage 2: Mild kidney damage GFR 60-89 Stage 3: Moderate kidney damage GFR 30-59 Stage 4: Severe kidney damage GFR 15-29 Stage 5: Severe kidney damage GFR <15 ESRD - chronic treatment by dialysis or transplant Performed By: #### C DP #### [address] [address] #### TROPI, BMP #### [address] [place] [address] Urea nitrogen mass conc 8 mg/dL Normal 6-[address] [facility] Comment on above: Performed By: #### C DP #### [address] [address] #### TROPI, BMP #### [address] [place] [address] HCG, ,Urineon 02-08 HCG.beta subunit ( test) Ql (U) Negative Normal NEG [facility] Comment on above: Result Comment: Spec imens with hCG levels near the threshold of the test (25 mIU/mL) may give a negative or indeterminate result. In such cases, another test should be performed with a new specimen in 48-72 hours. If early is suspected clinically in this setting, correlation with quantitative serum b-hCG level is suggested. [facility] has confirmed the use of plasma for this test. This has not been cleared or approved by the U.S. Food and Drug Administration. The FDA has determined that such clearance is not necessary. Performed By: #### C DP #### [address] [address] #### TROPI, BMP #### [address] [place] [address] Magnesiumon 02-08-2019 Magnesium mass conc 2.0 mg/dL Normal 1.6-2.[address] [facility] Comment on above: Performed By: #### C DP #### [address] [address] #### TROPI, BMP #### [address] [place] [address] Sedimentation Rateon 019 Sedimentation Rate 36 mm High 0-[address] [facility] Comment on above: Performed By: #### C DP #### [address] [address] #### TROPI, BMP #### [address] [place] [address] Urinalysis, Routineon 2018 Acetoacetic Acid,Ur Negative Normal NEG [facility] Comment on above: Performed By: #### C DP #### [address] [address] #### TROPI, BMP #### [address] [place] [address] Bilirubin, SemiQt,Ur Negative Normal NEG [facility] Comment on above: Performed By: #### C DP #### [address] [address] #### TROPI, BMP #### [address] [place] [address] Color Nom (U) YELLOW Normal YEL [facility] Comment on above: Performed By: #### C DP #### [address] [address] #### TROPI, BMP #### [address] [place] [address] Glucose,Semi-qnt,Ur Negative Normal NEG [facility] Comment on above: Performed By: #### C DP #### [address] [address] #### TROPI, BMP #### [address] [place] [address] Hemoglobin, Ur Negative Normal NEG [facility] Comment on above: Performed By: #### C DP #### [address] [address] #### TROPI, BMP #### [address] [place] [address] Leuckocyte Esterase TRACE Abnormal NEG [facility] Comment on above: Performed By: #### C DP #### [address] [address] #### TROPI, BMP #### [address] [place] [address] Nitrite,Ur Negative Normal NEG [facility] Comment on above: Performed By: #### C DP #### [address] [address] #### TROPI, BMP #### [address] [place] [address] PH,Ur 6.0 Normal 5.0-9.[address] [facility] Comment on above: Performed By: #### C DP #### [address] [address] #### TROPI, BMP #### [address] [place] [address] Protein mass conc (U) Negative Normal NEG [facility] Comment on above: Performed By: #### C DP #### [address] [address] #### TROPI, BMP #### [address] [place] [address] Spec. [place],Ur <1.005 Low 1.010-1.020 [facility] Comment on above: Performed By: #### C DP #### [address] [address] #### TROPI, BMP #### [address] [place] [address] Turbidity CLEAR Normal CLEAR [facility] Comment on above: Performed By: #### C DP #### [address] [address] #### TROPI, BMP #### [address] [place] [address] Urobilinogen,Ur Normal Normal NORM [facility] Comment on above: Performed By: #### C DP #### [address] [address] #### TROPI, BMP #### [address] [place] [address] Comment NOT REPORTED Normal [facility] Comment on above: Performed By: #### C DP #### [address] [address] #### TROPI, BMP #### [address] [place] [address] Urinalysis,Microon 9 ----- Normal [facility] Comment on above: Performed By: #### C DP #### [address] [address] #### TROPI, BMP #### [address] [place] [address] Bacteria LM.HPF #/area (Urine sed) TRACE Abnormal NONE [facility] Comment on above: Performed By: #### C DP #### [address] [address] #### TROPI, BMP #### [address] [place] [facility] Epithelial cells LM.HPF #/area (Urine sed) 5 TO 10 Normal 0-[address] [facility] Comment on above: Performed By: #### C DP #### [address] [address] #### TROPI, BMP #### [address] [place] [address] RBC #/vol (U) 0 TO 2 Normal 0-2 [facility] Comment on above: Performed By: #### C DP #### [address] [address] #### TROPI, BMP #### [address] [place] [address] WBC #/vol (U) 0 TO 2 Normal 0-5 [facility] Comment on above: Performed By: #### C DP #### [address] [address] #### TROPI, BMP #### [address] [place] [address] Amorphous sediment LM Ql (Urine sed) NOT REPORTED Normal NONE [facility] Comment on above: Performed By: #### C DP #### [address] [address] #### TROPI, BMP #### [address] [place] [address] Casts LM.LPF #/area (Urine sed) NOT REPORTED Normal [facility] Comment on above: Performed By: #### C DP #### [address] [address] #### TROPI, BMP #### [address] [place] [address] Crystals LM Nom (Urine sed) NOT REPORTED Normal NONE [facility] Comment on above: Performed By: #### C DP #### [address] [address] #### TROPI, BMP #### [address] [place] [address] Epithelial, Renal NOT REPORTED Normal [address] [facility] Comment on above: Performed By: #### C DP #### [address] [address] #### TROPI, BMP #### [address] [place] [address] Mucus Strands NOT REPORTED Normal NONE [facility] Comment on above: Performed By: #### C DP #### [address] [address] #### TROPI, BMP #### [address] [place] [address] Other Observations NOT REPORTED Normal NREQ [facility] Comment on above: Performed By: #### C DP #### [address] [address] #### TROPI, BMP #### [address] [place] [address] Trichomonas NOT REPORTED Normal NONE [facility] Comment on above: Performed By: #### C DP #### [address] [address] #### TROPI, BMP #### [address] [place] [address] Yeast LM Ql (Urine sed) NOT REPORTED Normal [facility] Comment on above: Performed By: #### C DP #### [address] [address] #### TROPI, BMP #### [address] [place] [address] Stool PCR Batter[place] 02-06-20 19 Campylobacter sp PCR NEGATIVE: No Campylobacter spp. (jejuni or coli) DNA Detected Normal CAMNEG [facility] Comment on above: Performed By: #### C DP #### [address] [address] #### TROPI, BMP #### [address] [place] [address] E coli enterotox PCR NEGATIVE: No Enterotoxigenic E. coli (ETEC) Heat-labile and heat-stable (LT/ST) Normal EECNEG [facility] Comment on above: Result Comment: DNA Detected Performed By: #### C DP #### [address] [address] #### TROPI, BMP #### [address] [place] [address] Plesiomonas sp PCR Negative Normal PLENEG [facility] Comment on above: Performed By: #### C DP #### [address] [address] #### TROPI, BMP #### [address] [place] [address] Salmonella sp PCR Negative Normal SALNEG [facility] Comment on above: Performed By: #### C DP #### [address] [address] #### TROPI, BMP #### [address] [place] [address] Shigatoxin gene PCR Negative Normal STXNEG [facility] Comment on above: Performed By: #### C DP #### [address] [address] #### TROPI, BMP #### [address] [place] [address] Vibrio sp PCR NEGATIVE: No Vibrio (V. vulnificus, V, parahaemolyticus and V. cholerae) DNA [facility] Comment on above: Result Comment: Dete cted Performed By: #### C DP #### [address] [address] #### TROPI, BMP #### [address] [place] [address] Yersinia gene PCR Negative Normal YERNEG [facility] Comment on above: Performed By: #### C DP #### [address] [address] #### TROPI, BMP #### [address] [place] [address] C diff Ag + Toxinon 02-05-20 19 C diff Ag + Toxin Negative Normal [facility] Comment on above: Performed By: #### C DP #### [address] [place] [address] #### TROPI, BMP #### [address] [place] [address] Specimen Description .FECES Normal [facility] Comment on above: Performed By: #### C DP #### [address] [place] [address] #### TROPI, BMP #### [address] [place] [address] CBCon 02-04-2019 Erythrocyte distribution width Ratio (RBC) 15.9 % High 11.8-14.[address] [facility] Comment on above: Performed By: #### C P, CBC #### [address] [place], [place] [id number] [employer]: Eddi Desai MD Hematocrit Volume Fraction (Bld) 36.8 % Normal 36.3-47.[address] [facility] Comment on above: Performed By: #### C P, CBC #### [address] [place], [place] [id number] [employer]: Eddi Desai MD Hemoglobin mass conc (Bld) 11.2 g/dL Low 11.9-15.[address] [facility] Comment on above: Performed By: #### C P, CBC #### [address] [place], [place] [id number] Back Gray Cl[employer] Washer: Eddi Desai MD MCH Entitic mass (RBC) 24.1 pg Low 25.2-33.[address] [facility] Comment on above: Performed By: #### C P, CBC #### [address] [place], [place] [id number] Back [employer] Cl[employer] Washer: Eddi Desai MD MCHC mass conc (RBC) 30.4 g/dL Normal 28.4-34.8 [facility] Comment on above: Performed By: #### C P, CBC #### [facility] [address] [place], [place] [id number] Back [employer] Cl[employer] Washer: Eddi Desai MD MCV Entitic volume (RBC) 79.3 fL Low 82.6-102.[address] [facility] Comment on above: Performed By: #### C P, CBC #### [facility] [address] [place], [facility]83 Back [employer] Washer: Eddi Desai MD NRBC Automated 0.0 per 100 WBC Normal 0.[address] [facility] Comment on above: Performed By: #### C P, CBC #### [facility] [address] [place], [facility]83 Back [employer] Washer: Eddi Desai MD Platelet mean volume Entitic volume (Bld) 10.4 fL Normal 8.1-13.5 [facility] Comment on above: Performed By: #### C P, CBC #### [address] [place], [facility]83 Back [employer] Washer: Eddi Desai MD Platelets #/vol (Bld) 278 10*3/uL Normal 138-453 [facility] Comment on above: Performed By: #### C P, CBC #### [address] [place], [place] [address] Back [employer] Washer: Eddi Desai MD RBC #/vol (Bld) 4.64 10*6/uL Normal 3.95-5.11 [facility] Comment on above: Performed By: #### C P, CBC #### [address] [place], [facility]83 Back [employer] Washer: Eddi Desai MD WBC #/vol (Bld) 11.8 10*3/uL High 3.5-11.3 [facility] Comment on above: Performed By: #### C P, CBC #### [facility] [address] [place] [address] Dr. [place], [place] 9[address]83 Back [employer] Washer: Eddi Desai MD Comp Metabolic Profon 2018 (cont.) Normal [facility] Comment on above: Result Comment: Aver age GFR for 30-39 years old: 107 mL/min/1.73sq m Chronic Kidney Disease: <60 mL/min/1.73sq m Kidney failure: <15 mL/min/1.73sq m eGFR calculated using average adult body mass. Additional eGFR calculator available at: http://www.ZOZI/multiple_crcl_2012.htm Performed By: #### C P, CBC #### [facility] [address] [place] [address] Back [employer] Cl[employer] Washer: Eddi Desai MD Albumin mass conc 3.9 g/dL Normal 3.5-5.2 [facility] Comment on above: Performed By: #### C P, CBC #### [facility] [address] [place], [place] [phone] Back [employer] Washer: Eddi Desai MD Albumin/Globulin mass ratio 1.1 {ratio} Normal 1.0-2.[address] [facility] Comment on above: Performed By: #### C P, CBC #### [facility] [address] [place], [place] [phone] Back [employer] Washer: Eddi Desai MD Alkaline Phos 83 U/L Normal 35-104 [facility] Comment on above: Performed By: #### C P, CBC #### [facility] [address] [place], [place] [phone] Back [employer] Washer: Eddi Desai MD ALT enzyme act/vol 12 U/L Normal 5-[address] [facility] Comment on above: Performed By: #### C P, CBC #### [facility] [address] [place] [address] Back [employer] Washer: Eddi Desai MD Anion gap molar conc 14 mmol/L Normal 9-17 [facility] Comment on above: Performed By: #### C P, CBC #### [facility] [address] [place], [place] [phone] Back [employer] Washer: Eddi Desai MD AST enzyme act/vol 12 U/L Normal <[address] [facility] Comment on above: Performed By: #### C P, CBC #### [facility] [address] [place], [place] [phone] Back [employer] Washer: Eddi Desai MD Bilirubin Ql (U) 0.55 mg/dL Normal 0.3-1.2 [facility] Comment on above: Performed By: #### C P, CBC #### [facility] [address] [place], [place] 2547383 Back [employer] Washer: Eddi Desai MD BUN/CRE Ratio 13 Normal 9-20 [facility] Comment on above: Performed By: #### C P, CBC #### [facility] [address] [place], [place] 4027383 Back [employer] Washer: Eddi Desai MD Calcium mass conc 9.3 mg/dL Normal 8.6-10.4 [facility] Comment on above: Performed By: #### C P, CBC #### [facility] [address] [place] [address] Back [employer] Washer: Eddi Desai MD Chloride molar conc 103 mmol/L Normal 98-[address] [facility] Comment on above: Performed By: #### C P, CBC #### [facility] [address] [place] [address] Back [employer] Washer: Eddi Desai MD CO2 molar conc 22 mmol/L Normal 20-31 [facility] Comment on above: Performed By: #### C P, CBC #### [facility] [address] [place], [place] [phone] Back [employer] Washer: Eddi Desai MD Creatinine mass conc 0.80 mg/dL Normal 0.50-0.90 [facility] Comment on above: Performed By: #### C P, CBC #### [facility] [address] [place], [place] 6796383 Back [employer] Washer: Eddi Desai MD GFR, Amer >60 Normal >60 [facility] Comment on above: Performed By: #### C P, CBC #### [facility] [address] [place], [place] [id number] Back [employer] Washer: Eddi Desai MD GFR,non Amer >60 Normal >60 [facility] Comment on above: Performed By: #### C P, CBC #### [facility] [address] [place], [place] [phone] Back [employer] Washer: Eddi Desai MD Glucose mass conc 99 mg/dL Normal 70-99 [facility] Comment on above: Performed By: #### C P, CBC #### [facility] [address] [place], [place] 6435983 Back [employer] Washer: Eddi Desai MD Potassium molar conc 3.5 mmol/L Low 3.7-5.3 [facility] Comment on above: Performed By: #### C P, CBC #### [facility] [address] [place], [place] 1385683 Back [employer] Washer: Eddi Desai MD Protein mass conc 7.5 g/dL Normal 6.4-8.3 [facility] Comment on above: Performed By: #### C P, CBC #### [facility] [address] [place], [place] 7118083 Back [employer] Washer: Eddi Desai MD Sodium molar conc 139 mmol/L Normal 135-144 [facility] Comment on above: Performed By: #### C P, CBC #### [facility] [address] [place], [place] 4690483 Back [employer] Washer: Eddi Desai MD Staging: Normal [facility] Comment on above: Result Comment: Stag e 1: Some kidney damage normal GFR Stage 2: Mild kidney damage GFR 60-89 Stage 3: Moderate kidney damage GFR 30-59 Stage 4: Severe kidney damage GFR 15-29 Stage 5: Severe kidney damage GFR <15 ESRD - chronic treatment by dialysis or transplant Performed By: #### C P, CBC #### [facility] [address] [place], [place] [phone] Back [employer] Washer: Eddi eDsai MD Urea nitrogen mass conc 10 mg/dL Normal 6-[address] [facility] Comment on above: Performed By: #### C P, CBC #### [facility] [address] [place] [address] Back [employer] Washer: Eddi Desai MD Drug Scr, Abuse, Uron 2018 Amphetamine(s),Ur Negative Normal NEG [facility] Comment on above: Performed By: #### U HCG, LANE, UMICAO, UAX #### [facility] [address] [place] [address] Dr. [place] [phone] Back [employer] Washer: Eddi Desai MD Barbiturate(s),Ur Negative Normal [facility] Comment on above: Performed By: #### U HCG, LANE, UMICAO, UAX #### [facility] [address] [place] [address] Dr. [place] [phone] Back [employer] Cl[employer] Washer: Eddi Desai MD Base excess Calculated molar conc (Bld) Negative Normal [facility] Comment on above: Performed By: #### U HCG, LANE, UMICAO, UAX #### [facility] [address] [place] [phone] Back [employer] Washer: Eddi Desai MD Benzodiazepine(s) Negative Normal [facility] Comment on above: Performed By: #### U HCG, LANE, UMICAO, UAX #### [facility] [address] [place] [phone] Back [employer] Cl[employer] Washer: Eddi Desai MD Buprenorphrine, Ur Negative Normal [facility] Comment on above: Performed By: #### U HCG, LANE, UMICAO, UAX #### [facility] [address] [place], [facility]83 Back [employer] Washer: Eddi Desai MD Cannabinoid(s),Ur Positive Abnormal NEG [facility] Comment on above: Performed By: #### U HCG, LANE, UMICAO, UAX #### [facility] [address] [place], [facility]83 Back [employer] Washer: Eddi Desai MD Methadone Ql (U) Negative Normal [facility] Comment on above: Performed By: #### U HCG, LANE, UMICAO, UAX #### [address] [place] [phone] Back Gray Cl[employer] Washer: Eddi Desai MD Methamphetamine, Ur Negative Normal [facility] Comment on above: Performed By: #### U HCG, LANE, UMICAO, UAX #### [address] [place] [address] Back Gray Cl[employer] Washer: Eddi Desai MD Opiate(s), Ur Negative Normal [facility] Comment on above: Performed By: #### U HCG, LANE, UMICAO, UAX #### [facility] [address] [place] [address] Dr. [place], [place] [address] Back Gray Cl[employer] Washer: Eddi Desai MD Oxycodone, Urine Negative Normal NEG [facility] Comment on above: Performed By: #### U HCG, LANE, UMICAO, UAX #### [address] [place] [address] Back Gray Cl[employer] Washer: Eddi Desai MD Phencyclidine, Ur Negative Normal [facility] Comment on above: Performed By: #### U HCG, LANE, UMICAO, UAX #### [address] [place] [address] Back [employer] Cl[employer] Washer: Eddi Desai MD Protein mass conc (U) Negative Normal NEG [facility] Comment on above: Performed By: #### U HCG, LANE, UMICAO, UAX #### [facility] [address] [place], [place] 1652183 Back [employer] Cl[employer] Washer: Eddi Desai MD Tricyclic antidepressants Screen Ql (U) Negative Normal NEG [facility] Comment on above: Result Comment: Drug screen results are to be used for medical purposes only. All positive results are unconfirmed. Testing for employment or legal uses should be sent to a reference laboratory for confirmation. Performed By: #### U HCG, LANE, UMICAO, UAX #### [address] [place], [place] [phone] Back [employer] Cl[employer] Washer: Eddi Desai MD Interpretive Info NOT REPORTED Normal [facility] Comment on above: Performed By: #### U HCG, LANE, UMICAO, UAX #### [facility] [address] [place] [address] Dr. [place], [place] [phone] Back [employer] Cl[employer] Washer: Eddi Desai MD MDMA, Urine NOT REPORTED Normal NEG [facility] Comment on above: Performed By: #### U HCG, LANE, UMICAO, UAX #### [address] [place], [place] [phone] Back Gray Cl[employer] Washer: Eddi Desai MD HCG, ,Urineon 02-04 HCG.beta subunit ( test) Ql (U) Negative Normal NEG [facility] Comment on above: Result Comment: Spec imens with hCG levels near the threshold of the test (25 mIU/mL) may give a negative or indeterminate result. In such cases, another test should be performed with a new specimen in 48-72 hours. If early is suspected clinically in this setting, correlation with quantitative serum b-hCG level is suggested. [facility] has confirmed the use of plasma for this test. This has not been cleared or approved by the U.[place]. Food and Drug Administration. The FDA has determined that such clearance is not necessary. Performed By: #### U HCG, LANE, UMICAO, UAX #### [facility] [address] [place], [place] 9977583 Back [employer] Cl[employer] Washer: Eddi Desai MD Lactic Acidon 02-04-2019 Lactate molar conc 1.5 mmol/L Normal 0.5-2.[address] [facility] Comment on above: Performed By: #### L ACTIC #### [facility] [address] [place] [address] Back Gray Cl[employer] Washer: Eddi Desai MD Lactate molar conc NOT REPORTED Normal 0.7-2.1 [facility] Comment on above: Performed By: #### L ACTIC #### [facility] [address] [place], [place] 2888183 Back Gray Cl[employer] Washer: Eddi Desai MD UA w/Reflex Cultureon 2018 Acetoacetic Acid,Ur Negative Normal NEG [facility] Comment on above: Performed By: #### U HCG, LANE, UMICAO, UAX #### [facility] [address] [place] [address] Back Gray Cl[employer] Washer: Eddi Desai MD Bilirubin.direct mass conc Negative Normal NEG [facility] Comment on above: Performed By: #### U HCG, LANE, UMICAO, UAX #### [facility] [address] [place], [place] [phone] Back Gray Cloth Washer: Eddi Desai MD Color Nom (U) YELLOW [facility] Comment on above: Performed By: #### U HCG, LANE, UMICAO, UAX #### [facility] [address] [place] [address] Back Gray Cloth Washer: Eddi Desai MD Glucose mass conc Negative Normal NEG [facility] Comment on above: Performed By: #### U HCG, LANE, UMICAO, UAX #### [facility] [address] [place] [address] Back Gray Cl[employer] Washer: Eddi Desai MD Hemoglobin mass conc (Bld) Negative Normal NEG [facility] Comment on above: Performed By: #### U HCG, LANE, UMICAO, UAX #### [facility] [address] [place] [address] Back Gray Cl[employer] Washer: Eddi Desai MD Leuckocyte Esterase Negative Normal NEG [facility] Comment on above: Performed By: #### U HCG, LANE, UMICAO, UAX #### [facility] [address] [place], [place] [phone] Back Gray Cl[employer] Washer: Eddi Desai MD Nitrite,Ur Negative Normal NEG [facility] Comment on above: Performed By: #### U HCG, LANE, UMICAO, UAX #### [facility] [address] [place], [place] [address] Back Gray Cl[employer] Washer: Eddi Desai MD PH,Ur 6.0 Normal 5.0-9.[address] [facility] Comment on above: Performed By: #### U HCG, LANE, UMICAO, UAX #### [facility] [address] [place] [address] Back Gray Cloth Washer: Eddi Desai MD Protein mass conc Negative Normal NEG [facility] Comment on above: Performed By: #### U HCG, LANE, UMICAO, UAX #### [facility] [address] [place] [address] Back Gray Cloth Washer: Eddi Desai MD Spec. [place],Ur 1.010 Normal 1.010-1.020 [facility] Comment on above: Performed By: #### U HCG, LANE, UMICAO, UAX #### [facility] [address] [place] [address] Back Gray Cl[employer] Washer: Eddi Desai MD Turbidity CLEAR Normal CLEAR [facility] Comment on above: Performed By: #### U HCG, LANE, UMICAO, UAX #### [facility] [address] [place], [facility]83 Back Gray Cl[employer] Washer: Eddi Desai MD Urobilinogen,Ur Normal Normal NORM [facility] Comment on above: Performed By: #### U HCG, LANE, UMICAO, UAX #### [facility] [address] [place], [place] [address] Back Gray Cloth Washer: Eddi Desai MD Comment NOT REPORTED Normal [facility] Comment on above: Performed By: #### U HCG, LANE, UMICAO, UAX #### [facility] [address] [place], [facility]83 Back Gray Cl[employer] Washer: Eddi Desai MD Urinalysis,Microon 9 ----- Normal [facility] Comment on above: Performed By: #### U HCG, LANE, UMICAO, UAX #### [address] [place] [facility]83 Back [employer] Cl[employer] Washer: Eddi Desai MD Bacteria LM.HPF #/area (Urine sed) 1+ Abnormal NONE [facility] Comment on above: Performed By: #### U HCG, LANE, UMICAO, UAX #### [address] [place], [place] [address] Back Gray Cl[employer] Washer: Eddi Desai MD Epithelial cells LM.HPF #/area (Urine sed) 0 TO 2 Normal 0-[address] [facility] Comment on above: Performed By: #### U HCG, LANE, UMICAO, UAX #### [facility] [address] [place] [address] Back Gray Cloth Washer: Eddi Desai MD RBC #/vol (U) 0 TO 2 Normal 0-2 [facility] Comment on above: Performed By: #### U HCG, LNAE, UMICAO, UAX #### [facility] [address] [place] [address] Back Gray Cloth Washer: Eddi Desai MD WBC #/vol (U) 0 TO 2 Normal 0-5 [facility] Comment on above: Performed By: #### U HCG, LANE, UMICAO, UAX #### [facility] [address] [place], [place] [phone] Back Gray Cl[employer] Washer: Eddi Desai MD Amorphous sediment LM Ql (Urine sed) NOT REPORTED Normal [facility] Comment on above: Performed By: #### U HCG, LANE, UMICAO, UAX #### [facility] [address] [place] [address] Back Gray Cloth Washer: Eddi Desai MD Casts LM.LPF #/area (Urine sed) NOT REPORTED Normal [facility] Comment on above: Performed By: #### U HCG, LANE, UMICAO, UAX #### [facility] [address] [place], [place] 1038883 Back Gray Cl[employer] Washer: Eddi Desai MD Crystals LM Nom (Urine sed) NOT REPORTED Normal [facility] Comment on above: Performed By: #### U HCG, LANE, UMICAO, UAX #### [facility] [address] [place] [address] Back Gray Cloth Washer: Eddi Desai MD Epithelial, Renal NOT REPORTED Normal [address] [facility] Comment on above: Performed By: #### U HCG, LANE, UMICAO, UAX #### [facility] [address] [place], [place] 5853183 Back Gray Cloth Washer: Eddi Desai MD Mucus Strands NOT REPORTED Normal [facility] Comment on above: Performed By: #### U HCG, LANE, UMICAO, UAX #### [facility] [address] [place], [place] [phone] Back Gray Cloth Washer: Eddi Desai MD Other Observations NOT REPORTED Normal NREQ [facility] Comment on above: Performed By: #### U HCG, LANE, UMICAO, UAX #### [facility] [address] [place], [place] 9663483 Back Gray Cl[employer] Washer: Eddi Desai MD Trichomonas NOT REPORTED Normal [facility] Comment on above: Performed By: #### U HCG, LANE, UMICAO, UAX #### [facility] [address] [place], [place] 9409983 Back Gray Cl[employer] Washer: Eddi Desai MD Yeast LM Ql (Urine sed) NOT REPORTED Normal [facility] Comment on above: Performed By: #### U HCG, LANE, UMICAO, UAX #### [facility] [address] [place], [place] 1896183 Back Gray Cloth Washer: Eddi Desai MD CBC W Auto Differentialon Abs Neut # 4.8 10 X 3/mm Normal 1.8 - 7.7 [facility] Comment on above: Performed By: #### C BC Auto Diff #### [facility] [address] [place] [address] Basophils/100 WBC (Bld) 1 % Normal 0 - [address] [facility] Comment on above: Performed By: #### C BC Auto Diff #### [facility] [address] [place] [address] Eosinophils #/vol (Bld) 0.5 10 X 3/mm Normal 0.0 - 0.5 [facility] Comment on above: Performed By: #### C BC Auto Diff #### [facility] [address] [place] [address] Eosinophils/100 WBC (Bld) 7 % High 0 - 5 [facility] Comment on above: Performed By: #### C BC Auto Diff #### [facility] [address] [place] [address] Erythrocyte distribution width Ratio (RBC) 16.3 % High 11.5 - 14.5 [facility] Comment on above: Performed By: #### C BC Auto Diff #### [facility] [address] [place] [address] Hematocrit Volume Fraction (Bld) 35.1 % Low 36.0 - 47.0 [facility] Comment on above: Performed By: #### C BC Auto Diff #### [place] [address] [place] [address] Hemoglobin mass conc (Bld) 11.1 g/dL Low 12.0 - 16.0 [facility] Comment on above: Performed By: #### C BC Auto Diff #### [address] [address] Lymphocytes #/vol (Bld) 2.3 10 X 3/mm Normal 1.0 - 4.0 [facility] Comment on above: Performed By: #### C BC Auto Diff #### [address] [address] Lymphocytes/100 WBC (Bld) 29 % Normal 20 - 40 [facility] Comment on above: Performed By: #### C BC Auto Diff #### [address] [address] MCH Entitic mass (RBC) 24.0 pg Low 27.0 - 35.0 [facility] Comment on above: Performed By: #### C BC Auto Diff #### [address] [address] MCHC mass conc (RBC) 31.6 g/dL Low 32.0 - 36.0 [facility] Comment on above: Performed By: #### C BC Auto Diff #### [facility] [address] [place] [address] MCV Entitic volume (RBC) 76.2 fL Low 80.0 - 100.0 [facility] Comment on above: Performed By: #### C BC Auto Diff #### [facility] [address] [place] [address] Monocytes/100 WBC (Bld) 6 % Normal 1 - 15 [facility] Comment on above: Performed By: #### C BC Auto Diff #### [place] [address] [place] [address] Neutrophils/100 WBC (Bld) 59 % Normal 50 - 70 [facility] Comment on above: Performed By: #### C BC Auto Diff #### [place] [address] [place] [address] Platelet mean volume Entitic volume (Bld) 8.7 fL Normal 7.5 - 11.5 [facility] Comment on above: Performed By: #### C BC Auto Diff #### [place] [address] [place] [address] Platelets #/vol (Bld) 261 uLx10 Normal 150 - 450 [facility] Comment on above: Performed By: #### C BC Auto Diff #### [place] [address] [place] [address] RBC #/vol (Bld) 4.61 10 X 6/mm Normal 4.20 - 5.40 [facility] Comment on above: Performed By: #### C BC Auto Diff #### [place] [address] [place] [address] WBC #/vol (Bld) 8.2 10 X 3/mm Normal 3.7 - 11.0 [facility] Comment on above: Performed By: #### C BC Auto Diff #### [place] [address] [place] [address] Comprehensive Metabolic Pane [place]ille 01-20-2019 GFR/1.73 sq M predicted among non-blacks MDRD vol rate/area (S/P/Bld) 118.[address] [facility] Comment on above: Result Comment: eGFR Interpretation: Normal: Equal to or greater than 60 mL/min/1.73 meters squared Chronic Kidney Disease: Less than 60 mL/min/1.73 meters squared Kidney Failure: Less than 15 mL/min/1.73 meters squared Performed By: #### C MP #### [facility] [address] [place] [address] GFR/1.73 sq M predicted among non-blacks MDRD vol rate/area (S/P/Bld) 163.[address] [facility] Comment on above: Result Comment: eGFR Interpretation: Normal: Equal to or greater than 60 mL/min/1.73 meters squared Chronic Kidney Disease: Less than 60 mL/min/1.73 meters squared Kidney Failure: Less than 15 mL/min/1.73 meters squared Performed By: #### C MP #### [place] [place] [address] GFR/1.73 sq M predicted among non-blacks MDRD vol rate/area (S/P/Bld) 128.[address] [facility] Comment on above: Result Comment: eGFR Interpretation: Normal: Equal to or greater than 60 mL/min/1.73 meters squared Chronic Kidney Disease: Less than 60 mL/min/1.73 meters squared Kidney Failure: Less than 15 mL/min/1.73 meters squared Performed By: #### C MP #### [facility] [address] [place] [address] GFR/1.73 sq M predicted among non-blacks MDRD vol rate/area (S/P/Bld) 122.[address] [facility] Comment on above: Result Comment: eGFR Interpretation: Normal: Equal to or greater than 60 mL/min/1.73 meters squared Chronic Kidney Disease: Less than 60 mL/min/1.73 meters squared Kidney Failure: Less than 15 mL/min/1.73 meters squared Performed By: #### C MP #### [facility] [address] [place] [address] GFR/1.73 sq M predicted among non-blacks MDRD vol rate/area (S/P/Bld) 136.41 [facility] Comment on above: Performed By: #### C MP #### [facility] [address] [place] [address] GFR/1.73 sq M predicted among non-blacks MDRD vol rate/area (S/P/Bld) 188.63 [facility] Comment on above: Performed By: #### C MP #### [place] [id number] [place] [address] GFR/1.73 sq M predicted among non-blacks MDRD vol rate/area (S/P/Bld) 149.05 [facility] Comment on above: Performed By: #### C MP #### [place] [id number] [place] [address] GFR/1.73 sq M predicted among non-blacks MDRD vol rate/area (S/P/Bld) 141.77 [facility] Comment on above: Performed By: #### C MP #### [facility] [address] [place] [address] Age Reported 28 year(s) [facility] Comment on above: Performed By: #### C MP #### [facility] [address] [place] [address] Albumin mass conc 3.9 g/dL Normal 3.5 - 5.0 [facility] Comment on above: Performed By: #### C MP #### [facility] [address] [place] [address] ALP enzyme act/vol 81 U/L Normal 38 - 126 [facility] Comment on above: Performed By: #### C MP #### [facility] [address] [place] [address] ALT enzyme act/vol 39 U/L High 0 - 35 [facility] Comment on above: Performed By: #### C MP #### [facility] [address] [place] [address] AST enzyme act/vol 30 U/L Normal 14 - 36 [facility] Comment on above: Performed By: #### C MP #### [address] [place] [address] Bilirubin mass conc 0.6 mg/dL Normal 0.2 - 1.3 [facility] Comment on above: Performed By: #### C MP #### [address] [place] [address] Calcium mass conc 8.6 mg/dL Normal 8.4 - 10.2 [facility] Comment on above: Performed By: #### C MP #### [place] [id number] [place] [address] Chloride molar conc 105 mmol/L Normal 98 - 107 [facility] Comment on above: Performed By: #### C MP #### [place] [address] [place] [address] CO2 molar conc 23 mmol/L Normal 22 - 32 [facility] Comment on above: Performed By: #### C MP #### [place] [place] [address] Creatinine mass conc 0.67 mg/dL Normal 0.52 - 1.04 [facility] Comment on above: Performed By: #### C MP #### [address] [address] Glucose mass conc 81 mg/dL Normal 65 - 100 [facility] Comment on above: Performed By: #### C MP #### [facility] [address] [place] [address] Potassium molar conc 3.9 mmol/L Normal 3.6 - 5.0 [facility] Comment on above: Performed By: #### C MP #### [facility] [address] [place] [address] Protein mass conc 7.3 g/dL Normal 6.3 - 8.2 [facility] Comment on above: Performed By: #### C MP #### [place] [address] [place] [address] Sodium molar conc 139 mmol/L Normal 135 - 145 [facility] Comment on above: Performed By: #### C MP #### [place] [address] [place] [address] Urea nitrogen mass conc 5 mg/dL Low 7 - 17 [facility] Comment on above: Performed By: #### C MP #### [place] [address] [place] [address] Age at specimen collection = Normal [facility] Comment on above: Performed By: #### C MP #### [place] [place] [address] Performed By: #### C BC Auto Diff #### [place] [id number] [facility] [place] [place] [address] FERRITINon 11-08-2018 Ferritin mass conc 10 ng/mL Normal 6.24-137 [facility] Comment on above: Result Comment: SARAH ENOPAUSAL FEMALES 6.9-282.5 POSTMENOPAUSAL FEMALES 14.0-233.1 Performed By: #### F EPRO, FRTN, B12, AFOL ####Testing performed at [address] [address] FOLATEon 11-08-2018 FOLATE 12.0 NG/ML Normal 2.56-20.0 [facility] Comment on above: Performed By: #### F EPRO, FRTN, B12, AFOL ####Testing performed at [address] [address] IRON PROFILEon 11-08-2018 IRON BINDING 416 UG/DL Normal 250-450 [facility] Comment on above: Performed By: #### F EPRO, FRTN, B12, AFOL ####Testing performed at [address] [address] TRANSFERRIN SATURATION,CALCULATED 13 % Normal [facility] Comment on above: Performed By: #### F EPRO, FRTN, B12, AFOL ####Testing performed at [address] [address] Iron mass conc 53 ug/dL Normal 37-170 [facility] Comment on above: Performed By: #### F EPRO, FRTN, B12, AFOL ####Testing performed at [address] [address] VITAMIN B12on 11-08-2018 Cobalamin (Vitamin B12) mass conc 351 pg/mL Normal 239-931 [facility] Comment on above: Performed By: #### F EPRO, FRTN, B12, AFOL ####Testing performed at [address] [address] BHCG,QUANTITATIVEon 10-07-20 18 BHCG,QUANTITATIVE <2.39 Normal [facility] Comment on above: Result Comment: BHCG INTERPRETIVE RANGES: NON FEMALE 0-6 MIU/MLMALE ADULT 0-2 MIU/ML0-1 WEEK 6-50 MIU/ML1-2 WEEKS 40-300 MIU/ML2-3 WEEKS 100-1,000 MIU/ML3-4 WEEKS 500-6,000 MIU/ML1-2 MONTHS 5,000-200,000 MIU/ML2-3 MONTHS 10,000-100,000 MIU/ML2ND TRIMESTER 3,000-50,000 MIU/ML3RD TRIMESTER 1,000-50,000 MIU/MLIf an hCG level is inconsistent with, or unsupported by, clinical evidence, results should be confirmed by an alternate hCG method. This method may include the qualitative hCG testing of urine.Testing performed at [place] [id number] Performed By: #### B HCG2 ####[place] [address] POCT URINE PREGNANCYon 10-07 HCG.beta subunit Qn Invalid Interpretation Code [facility] Work Phone: Interpretation and review of laboratory results Normal Invalid Interpretation Code [facility] Work Phone: [place] REMOVE INTRAUTERINE DEVIC Brian 10-07-2018 Joseph Renteria DO 10/07 1:25 PM IUD REMOVAL PROCEDURE PERFORMED BY: Joseph Renteria DO GROUND SUPPORT EQUIPMENT MECHANIC(S): None ATTENDING: Joseph Renteria DO PROCEDURE DATE: 10/07/2018 PROCEDURE START TIME: 1:24 PM INDICATIONS:Pelvic pain CONSENT: Informed consent was obtained prior to the procedure after discussion of the risks, benefits, and alternatives and expected outcomes were discussed with the patient; consent placed in chart. Patient informed about the possibility of PID and that PID can cause tubal damage leading to ectopic or infertility, or infrequently can necessitate hysterectomy, or cause . PID is often associated with sexually transmitted infections (STIs); IUD does not protect against STIs, including HIV. PID may be asymptomatic but still result in tubal damage and its sequelae. The patient concurred with the proposed plan, giving informed consent. DOES THIS PROCEDURE REQUIRE A UNIVERSAL PROTOCOL? Yes. Winger Protocol is required Preprocedure verification is complete patient verified and consents confirmed, procedure sites are identified and marked, timeout was called before the start of the procedure. ANESTHESIA: Not required PROCEDURE DETAILS: The risks and benefits of the procedure have been explained to the patient, including missed diagnosis, continued bleeding, infection, and uterine perforation. Spotting and irregular or heavy bleeding may occur during the first 3 to 6 months. Periods may become shorter and/or diabetes manager thereafter. Cycles may remain irregular, become infrequent, or even cease. Consider as fertility is rapidly returned after removal of an IUD Questions have been answered. Informed consent has been obtained. Cervix was prepped with betadine x 3. IUD strings were visualized and IUD removed in whole in the usual fashion utilizing gentle traction with a Elsy needle school bus driver. SPECIMEN(S) REMOVED: none DISPOSITION OF SPECIMEN(S): N/A ESTIMATED BLOOD LOSS: None ESTIMATED FLUIDS: No crystalloid, colloid or blood products given.. FINDINGS: unremarkable contour of 8 cm uterus, unremarkable adenexa Brand: Radha CONDITION: Stable. Patient tolerated procedure well. COMPLICATIONS: None. Good hemostasis obtained. PLAN: Follow up prn Invalid Interpretation Code [facility] Work Phone: Cult,Bloodon 09-20-2018 Cult,Blood Specimen Description .BLOOD Special Requests 10 ML LEFT FOREARM Culture NO GROWTH 6 DAYS Report Status FINAL 09/20/2018 Normal [facility] Comment on above: Performed By: #### U SAMEERA Ortiz #### [facility] [address] [place] [address] CHLAM/GC AMPLIFon 09-17-2018 CHLAMYDIA NUC. AMP Negative Normal Negative [facility] GONOCOCCUS NUC. AMP Negative Normal Negative [facility] Comment on above: Result Comment: PERF ORMED AT [facility] Cult,Urineon 09-15-2018 Cult,Urine Specimen Description .URINE, MIDSTREAM Special Requests NOT REPORTED Culture NO SIGNIFICANT GROWTH Report Status FINAL 09/15/[address] [facility] Comment on above: Performed By: #### U SAMEERA Ortiz #### [facility] [address] [place] [address] TESTOSTER.FREE-TOTALon 09-15 FREE TESTOSTERONE 0.9 pg/mL Normal 0.0-4.2 [facility] Comment on above: Result Comment: PERF ORMED AT [facility] Performed By: #### A CBC, CHEM7F, BHCG2 ####Testing performed at [facility] [place] [address] Amylaseon 09-14-2018 Amylase enzyme act/vol 31 U/L Normal 28-100 [facility] Comment on above: Performed By: #### C DP, HCG, LACTIC, ISABEL, CP, LIP #### [facility] [address] [facility] [address] CBC with Diffon 09-14-2018 Abs. Basophil 0.00 k/uL Normal 0.0-0.2 [facility] Comment on above: Performed By: #### C DP, HCG, LACTIC, ISABEL, CP, LIP #### [facility] [address] [place] [address] Abs.Neutrophil (Seg) 6.10 k/uL Normal 2.5-7.0 [facility] Comment on above: Performed By: #### C DP, HCG, LACTIC, ISABEL, CP, LIP #### [facility] [address] [place] [address] Auto Diff Performed YES Normal [facility] Comment on above: Performed By: #### C DP, HCG, LACTIC, ISABEL, CP, LIP #### [facility] [address] [place] [address] Basophils/100 WBC (Bld) 0 % Normal 0-2 [facility] Comment on above: Performed By: #### C DP, HCG, LACTIC, ISABEL, CP, LIP #### [facility] [address] [place] [address] Eosinophils #/vol (Bld) 0.00 10*3/uL Normal 0.0-0.4 [facility] Comment on above: Performed By: #### C DP, HCG, LACTIC, ISABEL, CP, LIP #### [facility] [address] [place] [id number] Eosinophils/100 WBC (Bld) 0 % Normal 0-5 [facility] Comment on above: Performed By: #### C DP, HCG, LACTIC, ISABEL, CP, LIP #### [place] [address] Erythrocyte distribution width Ratio (RBC) 16.9 % High 12.1-15.2 [facility] Comment on above: Performed By: #### C DP, HCG, LACTIC, ISABEL, CP, LIP #### [place] [address] Hematocrit Volume Fraction (Bld) 31.0 % Low 36-46 [facility] Comment on above: Performed By: #### C DP, HCG, LACTIC, ISABEL, CP, LIP #### [place] [address] Hemoglobin mass conc (Bld) 10.1 g/dL Low 12.0-16.0 [facility] Comment on above: Performed By: #### C DP, HCG, LACTIC, ISABEL, CP, LIP #### [place] [address] Lymphocytes #/vol (Bld) 2.10 10*3/uL Normal 1.0-4.8 [facility] Comment on above: Performed By: #### C DP, HCG, LACTIC, ISABEL, CP, LIP #### [place] [address] Lymphocytes/100 WBC (Bld) 24 % Normal 15-40 [facility] Comment on above: Performed By: #### C DP, HCG, LACTIC, ISABEL, CP, LIP #### [place] [address] MCH Entitic mass (RBC) 25.0 pg Low 26-34 [facility] Comment on above: Performed By: #### C DP, HCG, LACTIC, ISABEL, CP, LIP #### [place] [address] MCHC mass conc (RBC) 32.6 g/dL Normal 31-37 [facility] Comment on above: Performed By: #### C DP, HCG, LACTIC, ISABEL, CP, LIP #### [address] [place] [address] MCV Entitic volume (RBC) 76.6 fL Low 80-100 [facility] Comment on above: Performed By: #### C DP, HCG, LACTIC, ISABEL, CP, LIP #### [place] [address] Monocytes #/vol (Bld) 0.40 10*3/uL Normal 0.0-1.0 [facility] Comment on above: Performed By: #### C DP, HCG, LACTIC, ISABEL, CP, LIP #### [address] [place] [address] Monocytes/100 WBC (Bld) 5 % Normal 4-8 [facility] Comment on above: Performed By: #### C DP, HCG, LACTIC, ISABEL, CP, LIP #### [place] [address] Neutrophil (Seg) 71 % Normal 47-75 [facility] Comment on above: Performed By: #### C DP, HCG, LACTIC, ISABEL, CP, LIP #### [place] [address] Platelets #/vol (Bld) 499 10*3/uL High 140-450 [facility] Comment on above: Performed By: #### C DP, HCG, LACTIC, ISABEL, CP, LIP #### [place] [address] RBC #/vol (Bld) 4.05 10*6/uL Normal 4.0-5.2 [facility] Comment on above: Performed By: #### C DP, HCG, LACTIC, ISABEL, CP, LIP #### [place] [address] WBC #/vol (Bld) 8.6 10*3/uL Normal 3.5-11.0 [facility] Comment on above: Performed By: #### C DP, HCG, LACTIC, ISABEL, CP, LIP #### [place] [address] Abs.Imm.Granulocyte NOT REPORTED Normal 0.00-0.30 [facility] Comment on above: Performed By: #### C DP, HCG, LACTIC, ISABEL, CP, LIP #### [place] [address] Immature granulocytes #/vol (Bld) NOT REPORTED Normal 0 [facility] Comment on above: Performed By: #### C DP, HCG, LACTIC, ISABEL, CP, LIP #### [place] [address] NRBC Automated NOT REPORTED Normal [facility] Comment on above: Performed By: #### C DP, HCG, LACTIC, ISABEL, CP, LIP #### [place] [address] Platelet mean volume Entitic volume (Bld) NOT REPORTED Normal 6.0-12.0 [facility] Comment on above: Performed By: #### C DP, HCG, LACTIC, ISABEL, CP, LIP #### [place] [address] Platelets #/vol (Bld) NOT REPORTED Normal M [facility] Comment on above: Performed By: #### C DP, HCG, LACTIC, ISABEL, CP, LIP #### [place] [address] RBC morphology finding Nom (Bld) NOT REPORTED Normal [facility] Comment on above: Performed By: #### C DP, HCG, LACTIC, ISABEL, CP, LIP #### [facility] [address] [place] [address] WBC Morphology NOT REPORTED Normal [facility] Comment on above: Performed By: #### C DP, HCG, LACTIC, ISABEL, CP, LIP #### [facility] [address] [place] [address] Comp Metabolic Profon 2017 (cont.) Normal [facility] Comment on above: Result Comment: Aver age GFR for 20-29 years old: 116 mL/min/1.73sq m Chronic Kidney Disease: <60 mL/min/1.73sq m Kidney failure: <15 mL/min/1.73sq m eGFR calculated using average adult body mass. Additional eGFR calculator available at: http://www.ZOZI/multiple_crcl_2012.htm Performed By: #### SAMEERA Carcamo #### [facility] [address] [place] [address] [phone] Albumin mass conc 3.5 g/dL Normal 3.5-5.2 [facility] Comment on above: Performed By: #### SAMEERA Carcamo #### [facility] [address] [place] [address] ([phone] Alkaline Phos 87 U/L Normal 35-104 [facility] Comment on above: Performed By: #### SAMEERA Carcamo #### [facility] [address] [place] [address] ([phone]) ALT enzyme act/vol 6 U/L Normal 5-33 [facility] Comment on above: Performed By: #### SAMEERA Carcamo #### [facility] [address] [place] [address] ([phone]) Anion gap molar conc 12 mmol/L Normal 9-17 [facility] Comment on above: Performed By: #### SAMEERA Carcamo #### [facility] [address] [place] [address] AST enzyme act/vol 13 U/L Normal <32 [facility] Comment on above: Performed By: #### SAMEERA Carcamo #### [facility] [address] [place] [address] Bilirubin Ql (U) 0.42 mg/dL Normal 0.30-1.20 [facility] Comment on above: Performed By: #### SAMEERA Carcamo #### [facility] [address] [place] [address] BUN/CRE Ratio 8 Low 9-20 [facility] Comment on above: Performed By: #### SAMEERA Carcamo #### [facility] [address] [place] [address] ([phone] Calcium mass conc 8.9 mg/dL Normal 8.6-10.4 [facility] Comment on above: Performed By: #### SAMEERA Carcamo #### [facility] [address] [place] [address] Chloride molar conc 102 mmol/L Normal 98-107 [facility] Comment on above: Performed By: #### SAMEERA Carcamo #### [facility] [address] [place] [address] CO2 molar conc 25 mmol/L Normal 20-31 [facility] Comment on above: Performed By: #### SAMEERA Carcamo #### [facility] [address] [place] [address] Creatinine mass conc 0.75 mg/dL Normal 0.50-0.90 [facility] Comment on above: Performed By: #### SAMEERA Carcamo #### [facility] [address] [place] [address] GFR, Amer >60 Normal >60 [facility] Comment on above: Performed By: #### SAMEERA Carcamo #### [facility] [address] [place] [address] GFR,non Amer >60 Normal >60 [facility] Comment on above: Performed By: #### U Angel, UMICAO #### [facility] [address] [place] [address] Glucose mass conc 124 mg/dL High 70-99 [facility] Comment on above: Performed By: #### U Angel, UMICAO #### [facility] [address] [place] [address] Potassium molar conc 3.3 mmol/L Low 3.7-5.3 [facility] Comment on above: Performed By: #### U Angel, UMICAO #### [facility] [address] [facility] [place] [address] Protein mass conc 7.4 g/dL Normal 6.4-8.3 [facility] Comment on above: Performed By: #### U Angel, UMICAO #### [facility] [address] [facility] [place] [address] Sodium molar conc 139 mmol/L Normal 135-144 [facility] Comment on above: Performed By: #### U Angel, UMICAO #### [facility] [address] [facility] [place] [address] Urea nitrogen mass conc 6 mg/dL Normal 6-20 [facility] Comment on above: Performed By: #### U Angel, UMICAO #### [facility] [address] [place] [address] Albumin/Globulin mass ratio NOT REPORTED Normal 1.0-2.5 [facility] Comment on above: Performed By: #### U A, UMICAO #### [facility] [address] [place] [address] Staging: NOT REPORTED Normal [facility] Comment on above: Performed By: #### U A, UMICAO #### [facility] [address] [place] [address] ([phone] HCG Screen, Bloodon 09-14-20 18 HCG Qn Negative Normal NEG [facility] Comment on above: Result Comment: Spec imens with hCG levels near the threshold of the test (25 mIU/mL) may give a negative or indeterminate result. In such cases, another test should be performed with a new specimen in 48-72 hours. If early is suspected clinically in this setting, correlation with quantitative serum b-hCG level is suggested. [facility] has confirmed the use of plasma for this test. This has not been cleared or approved by the U.[place]. Food and Drug Administration. The FDA has determined that such clearance is not necessary. Performed By: #### C DP, HCG, LACTIC, ISABEL, CP, LIP #### [facility] [address] [place] [address] [phone] Lactic Acidon 09-14-2018 Lactate molar conc 1.9 mmol/L Normal 0.5-2.2 [facility] Comment on above: Performed By: #### C DP, HCG, LACTIC, ISABEL, CP, LIP #### [facility] [address] [place] [address] ([phone] Lactate molar conc NOT REPORTED Normal 0.7-2.1 [facility] Comment on above: Performed By: #### C DP, HCG, LACTIC, ISABEL, CP, LIP #### [facility] [address] [place] [address] ([phone]) Lipaseon 09-14-2018 Lipase enzyme act/vol 29 U/L Normal 13-60 [facility] Comment on above: Performed By: #### U Angel UMSTEFFO #### [facility] [address] [place] [address] [phone] TESTOSTER.FREE-TOTALon 09-14 Testosterone mass conc 6 ng/dL Low 8-48 [facility] Comment on above: Result Comment: PERF ORMED AT [facility] Performed By: #### A CBC, CHEM7F, BHCG2 ####Testing performed at [facility] [place] [address] Urinalysis, Routineon 2017 Acetoacetic Acid,Ur Negative Normal NEG [facility] Comment on above: Performed By: #### U GINA OrtizICAO #### [facility] [address] [place] [address] Bilirubin, SemiQt,Ur Negative Normal NEG [facility] Comment on above: Performed By: #### U Angel, UMICAO #### [facility] [address] [place] [address] Color Nom (U) YELLOW Normal YEL [facility] Comment on above: Performed By: #### U Angel UMSTEFFO #### [facility] [address] [place] [address] Comment Normal [facility] Comment on above: Performed By: #### U KAELYN OrtizO #### [facility] [address] [place] [address] Glucose,Semi-qnt,Ur Negative Normal NEG [facility] Comment on above: Performed By: #### U Angel UMICAO #### [facility] [address] [place] [address] Hemoglobin, Ur 2+ Abnormal NEG [facility] Comment on above: Performed By: #### U Angel, UMICAO #### [facility] [address] [place] [address] Leuckocyte Esterase 1+ Abnormal NEG [facility] Comment on above: Performed By: #### U Angel UMICAO #### [facility] [address] [place] [address] Nitrite,Ur Negative Normal NEG [facility] Comment on above: Performed By: #### U Angel UMICAO #### [facility] [address] [place] [address] PH,Ur 7.0 Normal 5.0-8.0 [facility] Comment on above: Performed By: #### SAMEERA Carcamo #### [facility] [address] [place] [address] Protein mass conc (U) Negative Normal NEG [facility] Comment on above: Performed By: #### SAMEERA Carcamo #### [facility] [address] [place] [id number] Spec. [place],Ur 1.010 Normal 1.005-1.030 [facility] Comment on above: Performed By: #### SAMEERA Carcamo #### [facility] [address] [place] [address] Turbidity HAZY Abnormal CLEAR [facility] Comment on above: Performed By: #### SAMEERA Carcamo #### [facility] [facility] [address] [id number] Urobilinogen,Ur Normal Normal NORM [facility] Comment on above: Performed By: #### SAMEERA Carcamo #### [facility] [address] [place] [address] Urinalysis,Microon 8 ----- Normal [facility] Comment on above: Performed By: #### SAMEERA Carcamo #### [facility] [address] [place] [address] Bacteria LM.HPF #/area (Urine sed) 1+ Abnormal NONE [facility] Comment on above: Performed By: #### SAMEERA Carcamo #### [facility] [address] [place] [address] Epithelial cells LM.HPF #/area (Urine sed) 5 TO 10 Normal [facility] Comment on above: Performed By: #### SAMEERA Carcamo #### [facility] [address] [place] [address] RBC #/vol (U) 2 TO 5 Normal 0-2 [facility] Comment on above: Performed By: #### U A, UMICAO #### [facility] [address] [facility] [place] [address] WBC #/vol (U) 2 TO 5 Normal 0 [facility] Comment on above: Performed By: #### U A, UMICAO #### [facility] [address] [place] [address] Amorphous sediment LM Ql (Urine sed) NOT REPORTED Normal NONE [facility] Comment on above: Performed By: #### U A, UMICAO #### [facility] [address] [place] [address] Casts LM.LPF #/area (Urine sed) NOT REPORTED Normal [facility] Comment on above: Performed By: #### U A, UMICAO #### [facility] [address] [place] [address] Crystals LM Nom (Urine sed) NOT REPORTED Normal NONE [facility] Comment on above: Performed By: #### U A, UMICAO #### [facility] [address] [place] [address] Epithelial, Renal NOT REPORTED Normal 0 [facility] Comment on above: Performed By: #### U A, UMICAO #### [facility] [address] [place] [address] Mucus Strands NOT REPORTED Normal NONE [facility] Comment on above: Performed By: #### U A, UMICAO #### [facility] [address] [place] [address] Other Observations NOT REPORTED Normal NREQ [facility] Comment on above: Performed By: #### U A, UMICAO #### [facility] [address] [place] [address] Trichomonas NOT REPORTED Normal NONE [facility] Comment on above: Performed By: #### U SAMEERA Ortiz #### [facility] [address] [place] [address] Yeast LM Ql (Urine sed) NOT REPORTED Normal NONE [facility] Comment on above: Performed By: #### U SAMEERA Ortiz #### [facility] [address] [place] [address] BMP FASTINGon 09-13-2018 Anion gap 3 molar conc 13 mmol/L Normal 8-16 [facility] Comment on above: Performed By: #### A CBC, CHEM7F, BHCG2 ####[place] [address] Calcium mass conc 9.4 mg/dL Normal 8.4-10.2 [facility] Comment on above: Performed By: #### A CBC, CHEM7F, BHCG2 ####[place] [address] Chloride molar conc 104 mmol/L Normal 98-107 [facility] Comment on above: Result Comment: Anna Marie willard note: Triglyceride levels of 600mg/dL or higher may positively bias chloride results by approximately 2.1 mmol Performed By: #### A CBC, CHEM7F, BHCG2 ####[place] [address] CO2 molar conc 24 mmol/L Normal 22-30 [facility] Comment on above: Performed By: #### A CBC, CHEM7F, BHCG2 ####[place] [address] Creatinine mass conc 0.8 mg/dL Normal 0.7-1.2 [facility] Comment on above: Performed By: #### A CBC, CHEM7F, BHCG2 ####[place] [address] EST. GFR, >60 Normal [facility] Comment on above: Performed By: #### A CBC, CHEM7F, BHCG2 ####[place] [address] EST. GFR,Non >60 Normal [facility] Comment on above: Performed By: #### A CBC, CHEM7F, BHCG2 ####[place] [address] GFR/1.73 sq M predicted among non-blacks MDRD vol rate/area (S/P/Bld) Average GFR for 20-29 years old = 116. Normal [facility] Comment on above: Result Comment: Lead Business Systems Analyst frantz Kidney disease, GFR = <60.Kidney failure, GFR = <15.The GFR estimate is not adjusted for extreme body surface area or acute process, nor has it been validated for women or ethnic groups other than and .Testing performed at [address] [address] Performed By: #### A CBC, CHEM7F, BHCG2 ####[place] [address] Glucose mass conc 119 mg/dL High 70-100 [facility] Comment on above: Result Comment: NORM AL <100 mg/dLPREDIABETES 101-126 mg/dLDIABETES 126 mg/dL or higher Performed By: #### A CBC, CHEM7F, BHCG2 ####[place] [address] Potassium molar conc 3.4 mmol/L Low 3.5-5.1 [facility] Comment on above: Performed By: #### A CBC, CHEM7F, BHCG2 ####[place] [address] Sodium molar conc 141 mmol/L Normal 137-145 [facility] Comment on above: Performed By: #### A CBC, CHEM7F, BHCG2 ####[place] [address] Urea nitrogen mass conc (Bld) 4 mg/dL Low 7-20 [facility] Comment on above: Performed By: #### A CBC, CHEM7F, BHCG2 ####[place] [address] CBCon 09-13-2018 ABSOLUTE BAS 0.0 X10 Normal [facility] Comment on above: Result Comment: Test ing performed at [place] [address] Performed By: #### A CBC, CHEM7F, BHCG2 ####[place] [address] ABSOLUTE EOS 0.10 X10 Normal [facility] Comment on above: Performed By: #### A CBC, CHEM7F, BHCG2 ####[place] [address] ABSOLUTE NEUTROPHIL COUNT 7.1 x10 High 1.0-7.0 [facility] Comment on above: Performed By: #### A CBC, CHEM7F, BHCG2 ####[place] [address] Basophils/100 WBC Auto (Bld) 0.3 % Normal 0.0-2.0 [facility] Comment on above: Performed By: #### A CBC, CHEM7F, BHCG2 ####[place] [address] DTYPE AUTO DIFF Normal [facility] Comment on above: Performed By: #### A CBC, CHEM7F, BHCG2 ####[place] [address] Eosinophils/100 WBC Auto (Bld) 0.6 % Normal 0.0-11.0 [facility] Comment on above: Performed By: #### A CBC, CHEM7F, BHCG2 ####[place] [address] Lymphocytes Auto #/vol (Bld) 1.80 X10 Normal [facility] Comment on above: Performed By: #### A CBC, CHEM7F, BHCG2 ####[place] [address] Lymphocytes/100 WBC Auto (Bld) 18.9 % Low 20.0-55.0 [facility] Comment on above: Performed By: #### A CBC, CHEM7F, BHCG2 ####[place] [address] Monocytes Auto #/vol (Bld) 0.3 X10 Normal [facility] Comment on above: Performed By: #### A CBC, CHEM7F, BHCG2 ####[place] [address] Monocytes/100 WBC Auto (Bld) 3.7 % Normal 0.0-10.0 [facility] Comment on above: Performed By: #### A CBC, CHEM7F, BHCG2 ####[place] [address] Neutrophils/100 WBC Auto (Bld) 76.5 % High 37.0-75.0 [facility] Comment on above: Performed By: #### A CBC, CHEM7F, BHCG2 ####[place] [address] Erythrocyte distribution width Auto Ratio (RBC) 16.8 % High 11.5-14.5 [facility] Comment on above: Performed By: #### A CBC, CHEM7F, BHCG2 ####[place] [address] Hematocrit Auto Volume Fraction (Bld) 34.3 % Low 36.0-48.0 [facility] Comment on above: Performed By: #### A CBC, CHEM7F, BHCG2 ####[place] [address] Hemoglobin mass conc (Bld) 10.8 g/dL Low 12.0-16.0 [facility] Comment on above: Performed By: #### A CBC, CHEM7F, BHCG2 ####[place] [address] MCH Auto Entitic mass (RBC) 24.5 pg Low 26.0-35.0 [facility] Comment on above: Performed By: #### A CBC, CHEM7F, BHCG2 ####[place] [address] MCHC Auto mass conc (RBC) 31.6 g/dL Normal 27.0-37.0 [facility] Comment on above: Performed By: #### A CBC, CHEM7F, BHCG2 ####[place] [address] MCV Auto Entitic volume (RBC) 77.5 fL Low 80.0-100.0 [facility] Comment on above: Performed By: #### A CBC, CHEM7F, BHCG2 ####[place] [address] Platelet mean volume Auto Entitic volume (Bld) 7.0 fL Low 7.4-11.0 [facility] Comment on above: Result Comment: Test ing performed at [address] [address] Performed By: #### A CBC, CHEM7F, BHCG2 ####[place] [address] Platelets Auto #/vol (Bld) 550 /cmm High 130.0-400.0 [facility] Comment on above: Performed By: #### A CBC, CHEM7F, BHCG2 ####[place] [address] RBC Auto #/vol (Bld) 4.42 /cmm Normal 4.0-5.4 [facility] Comment on above: Performed By: #### A CBC, CHEM7F, BHCG2 ####[place] [address] WBC Auto #/vol (Bld) 9.4 /cmm Normal 3.6-11.0 [facility] Comment on above: Performed By: #### A CBC, CHEM7F, BHCG2 ####[place] [address] GENITAL CULTUREon 09-13-2018 GENITAL CULTURE SPECIMEN DESCRIPTION VAGINAL SPECIMENGRAM SMEAR MODERATE * Result Note: SQUAMOUS EPITHELIAL CELLS * * Result Note: MODERATE * * Result Note: GRAM POSITIVE RODS * * Result Note: FEW * * Result Note: GRAM NEGATIVE RODS * * Result Note: THE GRAM STAIN SHOWS MORPHOTYPES CONSISTENT WITH NORMAL VAGINAL MICROBIOTA. THIS STATEMENT IS VALID ONLY FOR WOMEN IN CHILDBEARING YEARS AND POST MENOPAUSAL WOMEN ON ESTROGEN REPLACEMENT THERAPY. *CULTURE USUAL VAGINAL SCOTTY PRESENT * Result Note: MODERATE GROWTH * * Result Note: Testing performed at [address] [place] [address] *REPORT STATUS 09/15/2018 * Result Note: FINAL * Normal [facility] Comment on above: Performed By: #### G ENC ####[place] [address] HEMOGLOBIN A1Con 09-13-2018 Glucose mass conc 117 mg/dL Normal [facility] Comment on above: Result Comment: Test ing performed at [address] [address] Performed By: #### A CBC, CHEM7F, BHCG2 ####[place] [address] Hemoglobin A1c/Hemoglobin.total mass fraction (Bld) 5.7 % Normal 0-6 [facility] Comment on above: Result Comment: NORM AL <5.7%PREDIABETES 5.7-6.4%DIABETES 6.5% OR HIGHER Performed By: #### A CBC, CHEM7F, BHCG2 ####[place] [address] URINE CULTUREon 09-13-2018 Bacteria identified Cx Nom (U) SPECIMEN DESCRIPTION URINE CLEAN CATCHUA DIPSTICK NITRITE NEGATIVE * Result Note: LEUKOCYTE POSITIVE *CULTURE MULTIPLE SPECIES PRESENT;PROBABLE CONTAMINATION. SUGGEST REPEAT SPECIMEN. * Result Note: Testing performed at [address] [address] *REPORT STATUS 09/15/2018 * Result Note: FINAL * Normal [facility] Comment on above: Performed By: #### A CBC, CHEM7F, BHCG2 ####Testing performed at [address] [address] URINE MACROSCOPICon 09-13-20 18 Bilirubin Ql (U) Negative Normal NEGATIVE [facility] Comment on above: Performed By: #### A CBC, CHEM7F, BHCG2 ####[place] [address] Clarity Nom (U) CLEAR Normal CLEAR [facility] Comment on above: Performed By: #### A CBC, CHEM7F, BHCG2 ####Testing performed at [address] [id number] Color Nom (U) YELLOW Normal YELLOW [facility] Comment on above: Performed By: #### A CBC, CHEM7F, BHCG2 ####[place] [address] Glucose Ql (U) Negative Normal NEGATIVE [facility] Comment on above: Performed By: #### A CBC, CHEM7F, BHCG2 ####Testing performed at [address] [id number] pH Test strip (U) 7.5 [pH] High 5.0-7.0 [facility] Comment on above: Performed By: #### A CBC, CHEM7F, BHCG2 ####[place] [address] URINE HEMOGLOBIN MODERATE Abnormal NEGATIVE [facility] Comment on above: Performed By: #### A CBC, CHEM7F, BHCG2 ####Testing performed at [address] [id number] URINE KETONE Negative Normal NEGATIVE [facility] Comment on above: Performed By: #### A CBC, CHEM7F, BHCG2 ####[place] [address] URINE LEUKOTEST TRACE Abnormal NEGATIVE [facility] Comment on above: Result Comment: Test ing performed at [place] [address] Performed By: #### A CBC, CHEM7F, BHCG2 ####[place] [address] URINE NITRATES Negative Normal NEGATIVE [facility] Comment on above: Performed By: #### A CBC, CHEM7F, BHCG2 ####[place] [address] URINE SPEC GRAVITY 1.015 Normal 1.010-1.025 [facility] Comment on above: Performed By: #### A CBC, CHEM7F, BHCG2 ####[place] [address] URINE TOTAL PROTEIN Negative Normal NEGATIVE [facility] Comment on above: Performed By: #### A CBC, CHEM7F, BHCG2 ####[place] [address] Urobilinogen Test strip Qn (U) 0.2 mg/dl Normal 0.2-1.0 [facility] Comment on above: Performed By: #### A CBC, CHEM7F, BHCG2 ####[place] [address] URINE MICROSCOPICon 09-13-20 18 BACTERIA TRACE Abnormal NEGATIVE [facility] Comment on above: Performed By: #### A CBC, CHEM7F, BHCG2 ####[place] [address] CASTS NONE Normal [facility] Comment on above: Performed By: #### A CBC, CHEM7F, BHCG2 ####[place] [address] CRYSTAL NONE Normal [facility] Comment on above: Performed By: #### A CBC, CHEM7F, BHCG2 ####[place] [address] EPITHELIAL CELLS 1 TO 5 Normal [facility] Comment on above: Performed By: #### A CBC, CHEM7F, BHCG2 ####[place] [address] MUCUS TRACE Abnormal NEGATIVE [facility] Comment on above: Performed By: #### A CBC, CHEM7F, BHCG2 ####[place] [address] RBC Test strip #/vol (U) 5 TO 10 Normal NEGATIVE [facility] Comment on above: Performed By: #### A CBC, CHEM7F, BHCG2 ####[place] [address] URINE COMMENT PHYSICIAN REQUESTED CULTURE Normal [facility] Comment on above: Result Comment: Test ing performed at [place] [address] Performed By: #### A CBC, CHEM7F, BHCG2 ####[place] [address] URINE WBC'S 1 TO 5 Normal NEGATIVE [facility] Comment on above: Performed By: #### A CBC, CHEM7F, BHCG2 ####[place] [address] XR CHEST PA/APon 09-06-2018 XR CHEST PA/AP EXAMINATION:SINGLE X RAY VIEW OF THE CHEST09/06/2018 9:55 amCOMPARISON:None.HISTORY :ORDERING SYSTEM PROVIDED HISTORY: hypoxia; TECHNOLOGIST PROVIDED HISTORY: Reason for Exam: hypoxia Illness/Other Acuity: Acute Cancer History: no Surgery, Radiation History: no Type of Encounter: Initial Additional signs and symptoms: fever ORDERING SYSTEM PROVIDED DIAGNOSIS CODES: N10 Acute pyelonephritis R11.2 Nausea and vomiting, intractability of vomiting not specified, unspecified vomiting typeFINDINGS:The heart is enlarged. There is moderate pulmonary vascular congestion. There are atelectatic changes in the right lower lung field with possible developing infiltrate.IMPRESSION:Car diomegaly and moderate pulmonary vascular congestion.Atelectatic changes and possible infiltrate within the right lung base.JLL/awWorkstation ID: [id number] by: EHSAN SAMUEL on SunSep 06, 2018 10:44:43 AM EDTTranscribed by: SHALOM LOPEZ on SunSep 06, 2018 11:09:51 AM EDTFinalized by: EHSAN SAMUEL on SunSep 06, 2018 11:25:32 AM EDT [facility] Comment on above: Order Comment: Reaso n for exam?:hypoxiaInjury/Trauma or Illness?:Illness/OtherHow long have you had these symptoms (acute/chronic)?:AcuteHistory of cancer?:noSurgeries, chemotherapy, or radiation?:noType of Exam?:InitialAdditional signs and symptoms?:fever XR Chest 1 Viewon 09-06-2018 EXAMINATION: SINGLE XRAY VIEW OF THE CHEST 09/06/2018 9:55 am COMPARISON: None. HISTORY: ORDERING SYSTEM PROVIDED HISTORY: hypoxia; TECHNOLOGIST PROVIDED HISTORY: Reason for Exam: hypoxia Illness/Other Acuity: Acute Cancer History: no Surgery, Radiation History: no Type of Encounter: Initial Additional signs and symptoms: fever ORDERING SYSTEM PROVIDED DIAGNOSIS CODES: N10 Acute pyelonephritis R11.2 Nausea and vomiting, intractability of vomiting not specified, unspecified vomiting type FINDINGS: The heart is enlarged. There is moderate pulmonary vascular congestion. There are atelectatic changes in the right lower lung field with possible developing infiltrate. Invalid Interpretation Code [facility] Cardiomegaly and mod erate pulmonary vascular congestion. Atelectatic changes and possible infiltrate within the right lung base. Bizdom/moneymeets Workstation ID: [id number] Invalid Interpretation Code [facility] Interface, Rad Bandar Arevalo ji Speechq - 09/06/2018 11:28 AM EDT EXAMINATION: SINGLE XRAY VIEW OF THE CHEST 09/06/2018 9:55 am COMPARISON: None. HISTORY: ORDERING SYSTEM PROVIDED HISTORY: hypoxia; TECHNOLOGIST PROVIDED HISTORY: Reason for Exam: hypoxia Illness/Other Acuity: Acute Cancer History: no Surgery, Radiation History: no Type of Encounter: Initial Additional signs and symptoms: fever ORDERING SYSTEM PROVIDED DIAGNOSIS CODES: N10 Acute pyelonephritis R11.2 Nausea and vomiting, intractability of vomiting not specified, unspecified vomiting type FINDINGS: The heart is enlarged. There is moderate pulmonary vascular congestion. There are atelectatic changes in the right lower lung field with possible developing infiltrate. IMPRESSION: Cardiomegaly and moderate pulmonary vascular congestion. Atelectatic changes and possible infiltrate within the right lung base. Bizdom/moneymeets Workstation ID: [id number] Invalid Interpretation Code [facility] CBCon 09-05-2018 Erythrocyte distribution width Auto Entitic volume (RBC) 16.2 % High 11.6 - 14.8 % [facility] [place] [place] [facility] Hematocrit Auto Volume Fraction (Bld) 30.9 % Low 36 - 46 % [facility] [place] [place] [facility] Hemoglobin mass conc (Bld) 9.3 g/dL Low 12 - 16 g/dL [facility] [place] [place] [facility] Interpretation and review of laboratory results Abnormal Invalid Interpretation Code [facility] [place] [place] [facility] MCH Auto Entitic mass (RBC) 24.8 pg Low 26 - 34 pg [facility] [place] [place] [facility] MCHC Auto mass conc (RBC) 30.1 g/dL Low 31 - 37 g/dL [facility] [place] [place] [facility] MCV Auto Entitic volume (RBC) 82.4 fL Invalid Interpretation Code 80 - 100 fL [facility] [place] [place] [facility] Nucleated RBC #/vol (Bld) 0.00 10*3/uL Invalid Interpretation Code [facility] [place] [place] [facility] Nucleated RBC/100 WBC Ratio (Bld) 0.0 % Invalid Interpretation Code [facility] [place] [place] [facility] Platelet mean volume Auto Entitic volume (Bld) 11.9 fL Invalid Interpretation Code 9 - 15.5 fL [facility] [place] [place] [facility] Platelets Auto #/vol (Bld) 102 10*3/uL Low [facility] [place] [place] [facility] Comment on above: FEW CLUMPED PLATELET S SEEN RBC Auto #/vol (Bld) 3.75 10*6/uL Low [facility] WBC Auto #/vol (Bld) 4.66 10*3/uL Invalid Interpretation Code [facility] [place] [place] [facility] Chem 7on 09-05-2018 Anion gap 3 molar conc 17 mmol/L Invalid Interpretation Code 10 - 20 mmol/L [facility] [place] [place] [facility] Chloride molar conc 99 mmol/L Invalid Interpretation Code 98 - 108 mmol/L [facility] [place] [place] [facility] Creatinine mass conc 1.02 mg/dL Invalid Interpretation Code 0.4 - 1.1 mg/dL [facility] [place] [place] [facility] GFR/1.73 sq M predicted among non-blacks MDRD vol rate/area (S/P/Bld) The eGFR should be used for monitoring renal function only and not for medication dosing. Invalid Interpretation Code [facility] [place] [place] [facility] GFR/1.73 sq M.predicted CKD-EPI vol rate/area (S/P/Bld) 75 Invalid Interpretation Code >=60 mL/min/1.73 m2 [facility] [place] [place] [facility] Glucose mass conc 99 mg/dL Invalid Interpretation Code 65 - 99 mg/dL [facility] [place] [place] [facility] HCO3 molar conc 24 mmol/L Invalid Interpretation Code 21 - 32 mmol/L [facility] [place] [place] [facility] Interpretation and review of laboratory results Abnormal Invalid Interpretation Code [facility] [place] [place] [facility] Potassium molar conc 3.5 mmol/L Invalid Interpretation Code 3.5 - 5.1 mmol/L [facility] [place] [place] [facility] Sodium molar conc 136 mmol/L Invalid Interpretation Code 135 - 145 mmol/L [facility] [place] [place] [facility] Urea nitrogen mass conc 7 mg/dL Low 8 - 25 mg/dL [facility] [place] [place] [facility] Urea nitrogen/Creatinine mass ratio 6.9 mg/mg Low [facility] [place] [place] [facility] CBCon 09-04-2018 Erythrocyte distribution width Auto Entitic volume (RBC) 16.2 % High 11.6 - 14.8 % [facility] [place] [place] [facility] Hematocrit Auto Volume Fraction (Bld) 30.7 % Low 36 - 46 % [facility] [place] [place] [facility] Hemoglobin mass conc (Bld) 9.5 g/dL Low 12 - 16 g/dL [facility] [place] [place] [facility] Interpretation and review of laboratory results Abnormal Invalid Interpretation Code [facility] [place] [place] [facility] MCH Auto Entitic mass (RBC) 25.2 pg Low 26 - 34 pg [facility] [place] [place] [facility] MCHC Auto mass conc (RBC) 30.9 g/dL Low 31 - 37 g/dL [facility] [place] [place] [facility] MCV Auto Entitic volume (RBC) 81.4 fL Invalid Interpretation Code 80 - 100 fL [facility] [place] [place] [facility] Nucleated RBC #/vol (Bld) 0.00 10*3/uL Invalid Interpretation Code [facility] [place] [place] [facility] Nucleated RBC/100 WBC Ratio (Bld) 0.0 % Invalid Interpretation Code [facility] [place] [place] [facility] Platelet mean volume Auto Entitic volume (Bld) 11.2 fL Invalid Interpretation Code 9 - 15.5 fL [facility] [place] [place] [facility] Platelets Auto #/vol (Bld) 134 10*3/uL Low [facility] [place] [place] [facility] RBC Auto #/vol (Bld) 3.77 10*6/uL Low [facility] WBC Auto #/vol (Bld) 5.51 10*3/uL Invalid Interpretation Code [facility] [place] [facility] CLOSTRIDIUM DIFFICILE TOXIN PCRon 09-04-2018 C. difficile toxin genes JYOTI+probe Ql (St) Negative Invalid Interpretation Code Toxigenic C.diff NEGATIVE [facility] Epidemiologic Marker [id number] Negative Invalid Interpretation Code [id number] PRESUMPTIVE NEGATIVE [facility] Interpretation and review of laboratory results Normal Invalid Interpretation Code [facility] Comprehensive Metabolic Pane guille 09-04-2018 Albumin mass conc 2.8 g/dL Low 3.2 - 5.2 g/dL [facility] [place] [place] [facility] ALP enzyme act/vol 69 U/L Invalid Interpretation Code 40 - 140 U/L [facility] [place] [place] [facility] ALT enzyme act/vol 13 U/L Invalid Interpretation Code 0 - 40 U/L [facility] [place] [place] [facility] Anion gap 3 molar conc 19 mmol/L Invalid Interpretation Code 10 - 20 mmol/L [facility] [place] [place] [facility] AST enzyme act/vol 33 U/L Invalid Interpretation Code 0 - 45 U/L [facility] [place] [place] [facility] Bilirubin mass conc 0.4 mg/dL Invalid Interpretation Code 0 - 1.3 mg/dL [facility] [place] [place] [facility] Calcium mass conc 8.6 mg/dL Invalid Interpretation Code 8.4 - 10.2 mg/dL [facility] [place] [place] [facility] Chloride molar conc 97 mmol/L Low 98 - 108 mmol/L [facility] [place] [place] [facility] Creatinine mass conc 1.11 mg/dL High 0.4 - 1 .1 mg/dL [facility] [place] [place] [facility] GFR/1.73 sq M predicted among non-blacks MDRD vol rate/area (S/P/Bld) The eGFR should be used for monitoring renal function only and not for medication dosing. Invalid Interpretation Code [facility] [place] [place] [facility] GFR/1.73 sq M.predicted CKD-EPI vol rate/area (S/P/Bld) 67 Invalid Interpretation Code >=60 mL/min/1.73 m2 [facility] [place] [place] [facility] Glucose mass conc 99 mg/dL Invalid Interpretation Code 65 - 99 mg/dL [facility] [place] [place] [facility] HCO3 molar conc 20 mmol/L Low 21 - 32 mmol/L [facility] [place] [place] [facility] Interpretation and review of laboratory results Abnormal Invalid Interpretation Code [facility] [place] [place] [facility] Potassium molar conc 3.8 mmol/L Invalid Interpretation Code 3.5 - 5.1 mmol/L [facility] [place] [place] [facility] Protein mass conc 6.9 g/dL Invalid Interpretation Code 6 - 8 g/dL [facility] [place] [place] [facility] Sodium molar conc 132 mmol/L Low 135 - 145 mmol/L [facility] [place] [place] [facility] Urea nitrogen mass conc 8 mg/dL Invalid Interpretation Code 8 - 25 mg/dL [facility] [place] [place] [facility] Urea nitrogen/Creatinine mass ratio 7.2 mg/mg Low [facility] [place] [place] [facility] BLOOD GAS, VBG WITH FULL GONZALEZ Michael 09-03-2018 Base excess Calculated molar conc (BldV) -1.4 Invalid Interpretation Code [facility] [place] [place] [facility] Calcium.ionized mass conc 4.5 mg/dL Invalid Interpretation Code 4.5 - 5.3 mg/dL [facility] [place] [place] [facility] Carboxyhemoglobin/Hem oglobin.total mass fraction (BldA) 1.2 Invalid Interpretation Code [facility] [place] [place] [facility] Comment on above: Reference Ranges: Mistry burban Non-smokers:<1.5% Smokers:1.5-5.0% Heavy Smokers:5.0-9.0% CO2 ppres (BldV) 29.3 Low [facility] Glucose mass conc 127 mg/dL High 65 - 99 mg/dL [facility] HCO3 molar conc (Bld) 21.1 mmol/L Low 24 - 2 8 mmol/L [facility] Hematocrit Volume Fraction (BldA) 30.6 % Low 36 - 46 % [facility] Hemoglobin mass conc (Bld) 9.9 g/dL Low 12 - 16 g/dL [facility] Interpretation and review of laboratory results Abnormal Invalid Interpretation Code [facility] Lactate molar conc 0.8 mmol/L Invalid Interpretation Code 0.6 - 2 mmol/L [facility] [place] [place] [facility] Methemoglobin/Hemoglo bin.total mass fraction (BldA) 0.3 % Invalid Interpretation Code 0 - 2 % [facility] Oxygen ppres (BldV) 62 High [facility] [place] [place] [facility] Oxygen saturation in Venous blood 92.6 % Invalid Interpretation Code [facility] [place] [place] [facility] Oxyhemoglobin/Hemoglo bin.total mass fraction (BldA) 91.3 % Low 94 - 98 % [facility] pH (BldV) 7.47 High [facility] [place] [place] [facility] Potassium molar conc 3.7 mmol/L Invalid Interpretation Code 3.5 - 5.1 mmol/L [facility] [place] [place] [facility] Sodium molar conc 132 mmol/L Low 135 - 145 mmol/L [facility] [place] [place] [facility] Type of Oxygen saturation device Room Air Invalid Interpretation Code [facility] [place] [place] [facility] BMPon 09-03-2018 Anion gap 3 molar conc 20 mmol/L Invalid Interpretation Code 10 - 20 mmol/L [facility] [place] [place] [facility] Calcium mass conc 9.3 mg/dL Invalid Interpretation Code 8.4 - 10.2 mg/dL [facility] [place] [place] [facility] Chloride molar conc 94 mmol/L Low 98 - 108 mmol/L [facility] [place] [place] [facility] Creatinine mass conc 1.19 mg/dL High 0.4 - 1 .1 mg/dL [facility] GFR/1.73 sq M predicted among non-blacks MDRD vol rate/area (S/P/Bld) The eGFR should be used for monitoring renal function only and not for medication dosing. Invalid Interpretation Code [facility] [place] [place] [facility] GFR/1.73 sq M.predicted CKD-EPI vol rate/area (S/P/Bld) 62 Invalid Interpretation Code >=60 mL/min/1.73 m2 [facility] [place] [place] [facility] Glucose mass conc 142 mg/dL High 65 - 99 mg/dL [facility] [place] [place] [facility] HCO3 molar conc 19 mmol/L Low 21 - 32 mmol/L [facility] [place] [place] [facility] Interpretation and review of laboratory results Abnormal Invalid Interpretation Code [facility] [place] [place] [facility] Potassium molar conc 4.2 mmol/L Invalid Interpretation Code 3.5 - 5.1 mmol/L [facility] [place] [place] [facility] Comment on above: Specimen slightly he molyzed Sodium molar conc 129 mmol/L Low 135 - 145 mmol/L [facility] [place] [place] [facility] Urea nitrogen mass conc 10 mg/dL Invalid Interpretation Code 8 - 25 mg/dL [facility] [place] [place] [facility] Urea nitrogen/Creatinine mass ratio 8.4 mg/mg Low [facility] [place] [place] [facility] CBC WITH AUTO DIFFERENTIALon 09-03-2018 Basophils Auto #/vol (Bld) 0.03 10*3/uL Invalid Interpretation Code [facility] [place] [place] [facility] Basophils/100 WBC Auto (Bld) 0.2 % Invalid Interpretation Code [facility] [place] [place] [facility] Eosinophils Auto #/vol (Bld) 0.00 10*3/uL Invalid Interpretation Code [facility] [place] [place] [facility] Eosinophils/100 WBC Auto (Bld) 0.0 % Invalid Interpretation Code [facility] [place] [place] [facility] Erythrocyte distribution width Auto Entitic volume (RBC) 15.7 % High 11.6 - 14.8 % [facility] [place] [place] [facility] Hematocrit Auto Volume Fraction (Bld) 32.8 % Low 36 - 46 % [facility] [place] [place] [facility] Hemoglobin mass conc (Bld) 10.6 g/dL Low 12 - 16 g/dL [facility] [place] [place] [facility] Immature granulocytes #/vol (Bld) 0.13 10*3/uL Invalid Interpretation Code [facility] [place] [place] [facility] Immature granulocytes/100 WBC (Bld) 1.00 % Invalid Interpretation Code [facility] [place] [place] [facility] Comment on above: The IG parameter is the percentage of metamyelocytes, myelocytes, and promyelocytes. Interpretation and review of laboratory results Abnormal Invalid Interpretation Code [facility] [place] [place] [facility] Lymphocytes Auto #/vol (Bld) 0.61 10*3/uL Low [facility] [place] [place] [facility] Lymphocytes/100 WBC Auto (Bld) 4.8 % Invalid Interpretation Code [facility] [place] [place] [facility] MCH Auto Entitic mass (RBC) 25.0 pg Low 26 - 34 pg [facility] [place] [place] [facility] MCHC Auto mass conc (RBC) 32.3 g/dL Invalid Interpretation Code 31 - 37 g/dL [facility] [place] [place] [facility] MCV Auto Entitic volume (RBC) 77.4 fL Low 80 - 100 fL [facility] [place] [place] [facility] Monocytes Auto #/vol (Bld) 1.18 10*3/uL High [facility] Monocytes/100 WBC Auto (Bld) 9.2 % Invalid Interpretation Code [facility] Neutrophils Auto #/vol (Bld) 10.81 10*3/uL High [facility] Neutrophils/100 WBC Auto (Bld) 84.8 % Invalid Interpretation Code [facility] Nucleated RBC #/vol (Bld) 0.00 10*3/uL Invalid Interpretation Code [facility] Nucleated RBC/100 WBC Ratio (Bld) 0.0 % Invalid Interpretation Code [facility] Platelet mean volume Auto Entitic volume (Bld) 10.9 fL Invalid Interpretation Code 9 - 15.5 fL [facility] Platelets Auto #/vol (Bld) 179 10*3/uL Invalid Interpretation Code [facility] RBC Auto #/vol (Bld) 4.24 10*6/uL Invalid Interpretation Code [facility] WBC Auto #/vol (Bld) 12.76 10*3/uL High G LAB CT ABDOMEN PELVIS WITH IV CO NTRAST ONLYon 09-03-2018 CT ABDOMEN PELVIS WITH IV CONTRAST ONLY EXAMINATION:CT OF THE ABDOMEN AND PELVIS WITH [id number]/30/2018 11:48 amTECHNIQUE:CT of the abdomen and pelvis was performed with the administration of intravenous contrast. Multiplanar reformatted images are provided for review. Dose modulation, iterative reconstruction, and/or weight based adjustment of the mA/kV was utilized to reduce the radiation dose to as low as reasonably achievable.COMPARISON:Non eHISTORY:ORDERING SYSTEM PROVIDED HISTORY: abd pain, fever, h/o crohns; TECHNOLOGIST PROVIDED HISTORY: Reason for Exam: abd pain, fever, h/o crohns Illness/Other Acuity: Acute Type of Encounter: Initial Additional signs and symptoms: rt side abd pAINFINDINGS:LOWER CHEST: Patchy linear opacities in both lung bases, likely scarring and/or atelectasis. Normal heart size. No pleural nor pericardial effusions.ORGANS: Focal steatosis in hepatic segment 4 adjacent to the fissure for ligamentum teres. Surgically absent gallbladder. No intrahepatic nor extrahepatic biliary dilation. Mild pancreatic atrophy. Heterogeneous enhancement of the kidneys with striated nephrograms in the right upper pole. Subtle bilateral perinephric stranding. No calculi nor hydroureteronephrosis. Normal spleen and adrenal glands.GI/BOWEL: Normal course and caliber of the stomach, small bowel, colon, and rectum without obstruction. Fluid distention of a few small bowel loops. Normal appendix. Liquid stool in the right hemicolon. No obvious abnormal bowel wall thickening nor mucosal hyperenhancement.PELVIS: Normal uterus with an intrauterine device in expected position. Normal ovaries and urinary bladder.PERITONEUM/RETROP ERITONEUM: No abdominal nor pelvic lymphadenopathy. No free intraperitoneal fluid nor gas.SOFT TISSUES/BONES: No inguinal lymphadenopathy. No acute fractures nor suspicious osseous lesions.IMPRESSION:1. Findings of bilateral pyelonephritis, appearing more severe on the right.2. Fluid distention of a few small bowel loops could be related to mild enteritis but could also be physiologic or related to recent ingestion. Of note, there are no findings suggestive of active Crohn disease.3. Liquid stool in the right hemicolon, suggesting diarrhea.Workstation ID: [id number] by: RANJAN GRANGER on SunSep 03, 2018 11:54:10 AM EDTTranscribed by: RANJAN GRANGER on SunSep 03, 2018 11:54:10 AM EDTFinalized by: RANJAN GRANGER on SunSep 03, 2018 11:54:10 AM EDT [facility] Comment on above: Order Comment: Reaso n for exam?:abd pain, fever, h/o crohnsInjury/Trauma or Illness?:Illness/OtherHow long have you had these symptoms (acute/chronic)?:AcuteType of Exam?:InitialAdditional signs and symptoms?:rt side abd pAIN CT Abdomen Pelvis With IV Co ntrast Onlyon 09-03-2018 EXAMINATION: CT OF T HE ABDOMEN AND PELVIS WITH CONTRAST 09/03/2018 11:48 am TECHNIQUE: CT of the abdomen and pelvis was performed with the administration of intravenous contrast. Multiplanar reformatted images are provided for review. Dose modulation, iterative reconstruction, and/or weight based adjustment of the mA/kV was utilized to reduce the radiation dose to as low as reasonably achievable. COMPARISON: None HISTORY: ORDERING SYSTEM PROVIDED HISTORY: abd pain, fever, h/o crohns; TECHNOLOGIST PROVIDED HISTORY: Reason for Exam: abd pain, fever, h/o crohns Illness/Other Acuity: Acute Type of Encounter: Initial Additional signs and symptoms: rt side abd pAIN FINDINGS: LOWER CHEST: Patchy linear opacities in both lung bases, likely scarring and/or atelectasis. Normal heart size. No pleural nor pericardial effusions. ORGANS: Focal steatosis in hepatic segment 4 adjacent to the fissure for ligamentum teres. Surgically absent gallbladder. No intrahepatic nor extrahepatic biliary dilation. Mild pancreatic atrophy. Heterogeneous enhancement of the kidneys with striated nephrograms in the right upper pole. Subtle bilateral perinephric stranding. No calculi nor hydroureteronephrosis. Normal spleen and adrenal glands. GI/BOWEL: Normal course and caliber of the stomach, small bowel, colon, and rectum without obstruction. Fluid distention of a few small bowel loops. Normal appendix. Liquid stool in the right hemicolon. No obvious abnormal bowel wall thickening nor mucosal hyperenhancement. PELVIS: Normal uterus with an intrauterine device in expected position. Normal ovaries and urinary bladder. PERITONEUM/RETROPERITONEU M: No abdominal nor pelvic lymphadenopathy. No free intraperitoneal fluid nor gas. SOFT TISSUES/BONES: No inguinal lymphadenopathy. No acute fractures nor suspicious osseous lesions. Invalid Interpretation Code [facility] 1. Findings of bilat eral pyelonephritis, appearing more severe on the right. 2. Fluid distention of a few small bowel loops could be related to mild enteritis but could also be physiologic or related to recent ingestion. Of note, there are no findings suggestive of active Crohn disease. 3. Liquid stool in the right hemicolon, suggesting diarrhea. Workstation ID: [id number] Invalid Interpretation Code [employer] [place] Interface, Rad In Fu ji Speechq - 09/03/2018 11:56 AM EDT EXAMINATION: CT OF THE ABDOMEN AND PELVIS WITH CONTRAST 09/03/2018 11:48 am TECHNIQUE: CT of the abdomen and pelvis was performed with the administration of intravenous contrast. Multiplanar reformatted images are provided for review. Dose modulation, iterative reconstruction, and/or weight based adjustment of the mA/kV was utilized to reduce the radiation dose to as low as reasonably achievable. COMPARISON: None HISTORY: ORDERING SYSTEM PROVIDED HISTORY: abd pain, fever, h/o crohns; TECHNOLOGIST PROVIDED HISTORY: Reason for Exam: abd pain, fever, h/o crohns Illness/Other Acuity: Acute Type of Encounter: Initial Additional signs and symptoms: rt side abd pAIN FINDINGS: LOWER CHEST: Patchy linear opacities in both lung bases, likely scarring and/or atelectasis. Normal heart size. No pleural nor pericardial effusions. ORGANS: Focal steatosis in hepatic segment 4 adjacent to the fissure for ligamentum teres. Surgically absent gallbladder. No intrahepatic nor extrahepatic biliary dilation. Mild pancreatic atrophy. Heterogeneous enhancement of the kidneys with striated nephrograms in the right upper pole. Subtle bilateral perinephric stranding. No calculi nor hydroureteronephrosis. Normal spleen and adrenal glands. GI/BOWEL: Normal course and caliber of the stomach, small bowel, colon, and rectum without obstruction. Fluid distention of a few small bowel loops. Normal appendix. Liquid stool in the right hemicolon. No obvious abnormal bowel wall thickening nor mucosal hyperenhancement. PELVIS: Normal uterus with an intrauterine device in expected position. Normal ovaries and urinary bladder. PERITONEUM/RETROPERITONEU M: No abdominal nor pelvic lymphadenopathy. No free intraperitoneal fluid nor gas. SOFT TISSUES/BONES: No inguinal lymphadenopathy. No acute fractures nor suspicious osseous lesions. IMPRESSION: 1. Findings of bilateral pyelonephritis, appearing more severe on the right. 2. Fluid distention of a few small bowel loops could be related to mild enteritis but could also be physiologic or related to recent ingestion. Of note, there are no findings suggestive of active Crohn disease. 3. Liquid stool in the right hemicolon, suggesting diarrhea. Workstation ID: [id number] Invalid Interpretation Code [facility] Hepatic Function Panel (LFT) on 09-03-2018 Albumin mass conc 3.8 g/dL Invalid Interpretation Code 3.2 - 5.2 g/dL [facility] [place] [place] [facility] ALP enzyme act/vol 89 U/L Invalid Interpretation Code 40 - 140 U/L [facility] [place] [place] [facility] ALT enzyme act/vol 14 U/L Invalid Interpretation Code 0 - 40 U/L [facility] [place] [place] [facility] AST enzyme act/vol 41 U/L Invalid Interpretation Code 0 - 45 U/L [facility] [place] [place] [facility] Comment on above: Specimen slightly he molyzed Bilirubin mass conc 0.7 mg/dL Invalid Interpretation Code 0 - 1.3 mg/dL [facility] [place] [place] [facility] Bilirubin.conjugated mass conc mg/dL Invalid Interpretation Code 0 - 0.4 mg/dL [facility] [place] [place] [facility] Interpretation and review of laboratory results Abnormal Invalid Interpretation Code [facility] [place] [place] [facility] Protein mass conc 8.2 g/dL High 6 - 8 g/dL [facility] [place] [place] [facility] Lactic Acid, Plasmaon 2017 Interpretation and review of laboratory results Normal Invalid Interpretation Code [facility] [place] [place] [facility] Lactate molar conc 1.2 mmol/L Invalid Interpretation Code 0.6 - 2 mmol/L [facility] Lipaseon 09-03-2018 Interpretation and review of laboratory results Abnormal Invalid Interpretation Code [facility] Lipase enzyme act/vol 10 U/L Low 15 - 65 U/L [facility] Otheron 09-03-2018 Extra Tube Hold for add-ons. Invalid Interpretation Code [facility] Comment on above: Auto resulted. POC Urine Pregnancyon 2017 HCG ( test) Ql (U) Negative Invalid Interpretation Code Negative [facility] Internal Control Pass Invalid Interpretation Code [facility] Interpretation and review of laboratory results Normal Invalid Interpretation Code [facility] Specific gravity Relative Density (U) Invalid Interpretation Code [facility] URINALYSISon 09-03-2018 Bacteria Auto Ql (U) Many Abnormal None Se en /hpf [facility] [place] [place] [facility] Bilirubin Ql (U) Negative Invalid Interpretation Code Negative [facility] [place] [place] [facility] Clarity Refractometry automated Nom (U) Cloudy Abnormal Clear [facility] Color Auto Nom (U) Yellow Invalid Interpretation Code Colorless, Yellow [facility] Epithelial cells.squamous Auto #/area (Urine sed) 4 Invalid Interpretation Code [facility] Glucose Automated test strip mass conc (U) Negative Invalid Interpretation Code Negative mg/dL [facility] Hemoglobin Automated test strip Ql (U) Large Abnormal Negative [facility] Hyaline casts Auto #/area (Urine sed) 0-2 Invalid Interpretation Code 0 - 2 /lpf [facility] Interpretation and review of laboratory results Abnormal Invalid Interpretation Code [facility] Ketones mass conc (U) Trace Abnormal Negati ve mg/dL [facility] Leukocyte esterase Automated test strip Ql (U) Large Abnormal Negative [facility] [place] [place] [facility] Mucus Auto #/area (Urine sed) Rare Invalid Interpretation Code None Seen, Rare /lpf [facility] Nitrite Automated test strip Ql (U) Positive Abnormal Negative [facility] pH Test strip (U) 5.0 [pH] Invalid Interpretation Code [facility] Protein mass conc (U) 100 Abnormal Negati ve mg/dL [facility] RBC Auto #/area (Urine sed) 4 High [facility] Specific gravity Automated test strip Relative Density (U) 1.015 Invalid Interpretation Code [facility] [place] [place] [facility] Urobilinogen Test strip Qn (U) <2.0 Invalid Interpretation Code <2.0 mg/dL [facility] WBC Auto #/area (Urine sed) >180 High [facility] Microscopic examinat ion is performed on all urinalysis samples and only positive findings are reported. The test for blood on the chemical analytic portion of urinalysis may also be positive due to hemoglobinuria and myoglobinuria and if red blood cells are present they are quantified by microscopic examination. Invalid Interpretation Code [facility] [place] [place] [facility] Cult,Urineon 09-02-2018 Cult,Urine Specimen Description .URINE Special Requests NOT REPORTED Culture ESCHERICHIA COLI >[id number] CFU/ML Report Status FINAL 09/02/2018 SUSCEPTIBILITY Organism ESCHERICHIA COLI Method JAYE Amikacin NOT REPORTED Ampicillin >=32 RESISTANT Ampicillin/Sulbactam NOT REPORTED Aztreonam <=1 SUSCEPTIBLE Cefazolin <=4 SUSCEPTIBLE Cefazolin sensitivity results can be used to predict the effectiveness of oral cephalosporins (eg. Cephalexin) in uncomplicated Urinary Tract Infections due to E. coli, K. pneumoniae, and P. mirabilis Cefepime NOT REPORTED Ceftriaxone <=1 SUSCEPTIBLE Ciprofloxacin <=0.25 SUSCEPTIBLE Ertapenem NOT REPORTED ESBL NEGATIVE Gentamicin <=1 SUSCEPTIBLE Meropenem NOT REPORTED Nitrofurantoin <=16 SUSCEPTIBLE Tigecycline NOT REPORTED Tobramycin <=1 SUSCEPTIBLE Trimethoprim/Sulfa >=320 RESISTANT Piperacillin/Tazobactam <=4 SUSCEPTIBLE Normal [facility] Comment on above: Performed By: #### U RC #### [address] [phone] CBC with Diffon 08-31-2018 Abs. Basophil 0.00 k/uL Normal 0.0-0.2 [facility] Comment on above: Performed By: #### C DP, CP #### [address] [phone] Abs.Neutrophil (Seg) 12.70 k/uL High 2.5-7.0 [facility] Comment on above: Performed By: #### C DP, CP #### [address] [phone] Auto Diff Performed YES Normal [facility] Comment on above: Performed By: #### C DP, CP #### [address] [address] Basophils/100 WBC (Bld) 0 % Normal 0-2 [facility] Comment on above: Performed By: #### C DP, CP #### [facility] [address] [place] [address] Eosinophils #/vol (Bld) 0.00 10*3/uL Normal 0.0-0.4 [facility] Comment on above: Performed By: #### C DP, CP #### [facility] [address] [place] [address] Eosinophils/100 WBC (Bld) 0 % Normal 0-5 [facility] Comment on above: Performed By: #### C DP, CP #### [facility] [address] [place] [address] Erythrocyte distribution width Ratio (RBC) 16.8 % High 12.1-15.2 [facility] Comment on above: Performed By: #### C DP, CP #### [facility] [address] [place] [address] Hematocrit Volume Fraction (Bld) 41.0 % Normal 36-46 [facility] Comment on above: Performed By: #### C DP, CP #### [facility] [facility] [address] [place] [address] Hemoglobin mass conc (Bld) 13.2 g/dL Normal 12.0-16.0 [facility] Comment on above: Performed By: #### C DP, CP #### [facility] [address] [place] [address] Lymphocytes #/vol (Bld) 2.10 10*3/uL Normal 1.0-4.8 [facility] Comment on above: Performed By: #### C DP, CP #### [facility] [address] [place] [address] Lymphocytes/100 WBC (Bld) 13 % Low 15-40 [facility] Comment on above: Performed By: #### C DP, CP #### [facility] [address] [facility] [place] [address] MCH Entitic mass (RBC) 25.0 pg Low 26-34 [facility] Comment on above: Performed By: #### C DP, CP #### [facility] [address] [place] [id number] MCHC mass conc (RBC) 32.2 g/dL Normal 31-37 [facility] Comment on above: Performed By: #### C DP, CP #### [facility] [address] [place] [address] MCV Entitic volume (RBC) 77.7 fL Low 80-100 [facility] Comment on above: Performed By: #### C DP, CP #### [facility] [address] [place] [address] Monocytes #/vol (Bld) 1.20 10*3/uL High 0.0-1.0 M [facility] Comment on above: Performed By: #### C DP, CP #### [facility] [address] [place] [address] Monocytes/100 WBC (Bld) 8 % Normal 4-8 [facility] Comment on above: Performed By: #### C DP, CP #### [facility] [address] [place] [address] Neutrophil (Seg) 79 % High 47-75 [facility] Comment on above: Performed By: #### C DP, CP #### [facility] [address] [place] [address] Platelets #/vol (Bld) 312 10*3/uL Normal 140-450 [facility] Comment on above: Performed By: #### C DP, CP #### [facility] [address] [place] [address] RBC #/vol (Bld) 5.28 10*6/uL High 4.0-5.2 [facility] Comment on above: Performed By: #### C DP, CP #### [facility] [address] [place] [address] WBC #/vol (Bld) 16.1 10*3/uL High 3.5-11.0 [facility] Comment on above: Performed By: #### C DP, CP #### [facility] [address] [place] [address] Abs.Imm.Granulocyte NOT REPORTED Normal 0.00-0.30 [facility] Comment on above: Performed By: #### C DP, CP #### [facility] [address] [place] [address] Immature granulocytes #/vol (Bld) NOT REPORTED Normal 0 [facility] Comment on above: Performed By: #### C DP, CP #### [facility] [address] [place] [id number] NRBC Automated NOT REPORTED Normal [facility] Comment on above: Performed By: #### C DP, CP #### [facility] [address] [place] [address] Platelet mean volume Entitic volume (Bld) NOT REPORTED Normal 6.0-12.0 [facility] Comment on above: Performed By: #### C DP, CP #### [facility] [address] [place] [address] Platelets #/vol (Bld) NOT REPORTED Normal M [facility] Comment on above: Performed By: #### C DP, CP #### [facility] [address] [place] [address] RBC morphology finding Nom (Bld) NOT REPORTED Normal [facility] Comment on above: Performed By: #### C DP, CP #### [facility] [address] [place] [address] WBC Morphology NOT REPORTED Normal [facility] Comment on above: Performed By: #### C CORY CANTU #### [facility] [address] [place] [place] [address] CT ABDOMEN PELVIS WO CONTRAS Ton 08-31-2018 CT ABDOMEN PELVIS WO CONTRAST EXAM: CT ABDOMEN PELVIS WO CONTRAST 08/31/2018 CLINICAL STATEMENT: Right-sided abdominal pain, dysuria, vomiting. COMPARISON: CT imaging 04/04/2017. TECHNIQUE: CT examination of the abdomen and pelvis without IV contrast. Coronal and sagittal reformations were performed. Dose reduction techniques were achieved by using automated exposure control and/or adjustment of mA and/or kV according to patient size and/or use of iterative reconstruction technique. FINDINGS: There is no renal stone or current hydronephrosis. The ureters are not abnormally dilated. No stone is seen in the lumen of the urinary bladder. The liver and the spleen are homogeneous in appearance. Pancreas appears normal. Gallbladder is not identified. No bowel obstruction is currently evident. There is a IUD in the uterus in the fundus area. The uterus is not enlarged. Bladder is not distended. No abnormal fluid collection or phlegmon is seen in the pelvis. Appendix appears normal. Lower chest cuts show no pleural fluid collection. No free intraperitoneal air is evident. IMPRESSION: 1. No urinary tract calculus or hydronephrosis is identified. 2. No acute process is identified in the abdomen or pelvis by noncontrast imaging. Interpreted by: Maycol Hedrick MD Signed by: Maycol Hedrick MD 08/31/18 Final result Normal [facility] Comp Metabolic Profon 2017 (cont.) Normal [facility] Comment on above: Result Comment: Aver age GFR for 20-29 years old: 116 mL/min/1.73sq m Chronic Kidney Disease: <60 mL/min/1.73sq m Kidney failure: <15 mL/min/1.73sq m eGFR calculated using average adult body mass. Additional eGFR calculator available at: http://www.[employer].Cloudnexa/multiple_crcl_2012.htm Performed By: #### C CORY CANTU #### [facility] [address] [place] [address] (094 Albumin mass conc 4.4 g/dL Normal 3.5-5.2 [facility] Comment on above: Performed By: #### C DP, CP #### [facility] [address] [place] [address] Alkaline Phos 99 U/L Normal 35-104 [facility] Comment on above: Performed By: #### C DP, CP #### [facility] [address] [place] [address] ALT enzyme act/vol 12 U/L Normal 5-33 [facility] Comment on above: Performed By: #### C DP, CP #### [facility] [address] [place] [address] ([phone]) Anion gap molar conc 14 mmol/L Normal 9-17 [facility] Comment on above: Performed By: #### C DP, CP #### [facility] [address] [place] [address] AST enzyme act/vol 12 U/L Normal <32 [facility] Comment on above: Performed By: #### C DP, CP #### [facility] [address] [place] [address] Bilirubin Ql (U) 1.43 mg/dL High 0.30-1.20 [facility] Comment on above: Performed By: #### C DP, CP #### [facility] [address] [place] [address] BUN/CRE Ratio 7 Low 9-20 [facility] Comment on above: Performed By: #### C DP, CP #### [facility] [address] [place], [place] [phone] (003 Calcium mass conc 9.9 mg/dL Normal 8.6-10.4 [facility] Comment on above: Performed By: #### C DP, CP #### [facility] [address] [place] [address] Chloride molar conc 99 mmol/L Normal 98-107 [facility] Comment on above: Performed By: #### C DP, CP #### [facility] [address] [place] [address] CO2 molar conc 22 mmol/L Normal 20-31 [facility] Comment on above: Performed By: #### C DP, CP #### [facility] [address] [place] [address] Creatinine mass conc 1.12 mg/dL High 0.50-0.90 [facility] Comment on above: Performed By: #### C DP, CP #### [facility] [address] [place] [place] [address] GFR, Amer >60 Normal >60 [facility] Comment on above: Performed By: #### C DP, CP #### [facility] [address] [place] [address] GFR,non Amer 58 mL/min Low >60 [facility] Comment on above: Performed By: #### C DP, CP #### [facility] [address] [place] [address] Glucose mass conc 155 mg/dL High 70-99 [facility] Comment on above: Performed By: #### C DP, CP #### [facility] [address] [place] [address] Potassium molar conc 3.5 mmol/L Low 3.7-5.3 [facility] Comment on above: Performed By: #### C DP, CP #### [facility] [address] [place] [address] Protein mass conc 8.6 g/dL High 6.4-8.3 [facility] Comment on above: Performed By: #### C DP, CP #### [facility] [address] [place] [address] Sodium molar conc 135 mmol/L Normal 135-144 [facility] Comment on above: Performed By: #### C DP, CP #### [facility] [address] [place] [address] Urea nitrogen mass conc 8 mg/dL Normal 6-20 [facility] Comment on above: Performed By: #### C DP, CP #### [facility] [address] [place] [address] Albumin/Globulin mass ratio NOT REPORTED Normal 1.0-2.5 [facility] Comment on above: Performed By: #### C DP, CP #### [facility] [address] [place] [address] Staging: NOT REPORTED Normal [facility] Comment on above: Performed By: #### C DP, CP #### [facility] [address] [place] [address] Urinalysis, Routineon 2017 Acetoacetic Acid,Ur Negative Normal NEG [facility] Comment on above: Performed By: #### SAMEERA Carcamo #### [facility] [address] [place] [address] Bilirubin, SemiQt,Ur Negative Normal NEG [facility] Comment on above: Performed By: #### SAMEERA Carcamo #### [facility] [address] [place] [address] Color Nom (U) YELLOW Normal YEL [facility] Comment on above: Performed By: #### U KAELYN OrtizO #### [facility] [address] [place] [address] Comment Normal [facility] Comment on above: Performed By: #### U Angel UMSTEFFO #### [facility] [address] [place] [address] Glucose,Semi-qnt,Ur Negative Normal NEG [facility] Comment on above: Performed By: #### U A, UMICAO #### [facility] [address] [address] Hemoglobin, Ur 3+ Abnormal NEG [facility] Comment on above: Performed By: #### U A, UMICAO #### [facility] [address] [place] [address] Leuckocyte Esterase 3+ Abnormal NEG [facility] Comment on above: Performed By: #### U A, UMICAO #### [facility] [address] [place] [address] Nitrite,Ur Negative Normal NEG [facility] Comment on above: Performed By: #### U A, UMICAO #### [facility] [address] [place] [address] PH,Ur 6.0 Normal 5.0-8.0 [facility] Comment on above: Performed By: #### U Angel, UMICAO #### [facility] [address] [place] [address] Protein mass conc (U) 2+ Abnormal NEG [facility] Comment on above: Performed By: #### U A, UMICAO #### [facility] [address] [address] Spec. [place],Ur 1.020 Normal 1.005-1.030 [facility] Comment on above: Performed By: #### U A, UMICAO #### [facility] [address] [place] [address] Turbidity CLEAR Normal CLEAR [facility] Comment on above: Performed By: #### U A, UMICAO #### [facility] [address] [place] [address] Urobilinogen,Ur Normal Normal NORM [facility] Comment on above: Performed By: #### U A, UMICAO #### [facility] [address] [place] [address] Urinalysis,Microon 8 ----- Normal [facility] Comment on above: Performed By: #### U A, UMICAO #### [facility] [address] [place] [address] Bacteria LM.HPF #/area (Urine sed) 1+ Abnormal NONE [facility] Comment on above: Performed By: #### U A, UMICAO #### [facility] [address] [place] [address] Epithelial cells LM.HPF #/area (Urine sed) 2 TO 5 Normal [facility] Comment on above: Performed By: #### U Angel UMICAO #### [place] [address] RBC #/vol (U) 50 TO 100 Normal 0-2 [facility] Comment on above: Performed By: #### U Angel UMICAO #### [place] [address] WBC #/vol (U) 20 TO 50 Normal 0 [facility] Comment on above: Performed By: #### U A UMICAO #### [facility] [address] [place] [address] Amorphous sediment LM Ql (Urine sed) NOT REPORTED Normal [facility] Comment on above: Performed By: #### U A UMICAO #### [facility] [address] [place] [address] Casts LM.LPF #/area (Urine sed) NOT REPORTED Normal [facility] Comment on above: Performed By: #### U A UMICAO #### [place] [address] Crystals LM Nom (Urine sed) NOT REPORTED Normal NONE [facility] Comment on above: Performed By: #### U A, UMICAO #### [facility] [address] [place], [place] [id number] ([phone]) Epithelial, Renal NOT REPORTED Normal 0 [facility] Comment on above: Performed By: #### U A, UMICAO #### [facility] [address] [place] [place] [address] Mucus Strands NOT REPORTED Normal NONE [facility] Comment on above: Performed By: #### U A, UMICAO #### [facility] [address] [place] [place] [address] Other Observations NOT REPORTED Normal NREQ [facility] Comment on above: Performed By: #### U A, UMICAO #### [facility] [address] [place] [place] [address] Trichomonas NOT REPORTED Normal NONE [facility] Comment on above: Performed By: #### U A, UMICAO #### [facility] [address] [place] [address] Yeast LM Ql (Urine sed) NOT REPORTED Normal NONE [facility] Comment on above: Performed By: #### U A, UMICAO #### [facility] [address] [place] [address] Alcohol, Medicalon 8 Ethanol mass conc Negative Normal [facility] Comment on above: Performed By: #### A LC, HCGQL ####Unless otherwise noted, all testing performed by [facility], [place] [phone]: [id number] Director: Geronimo Ibrahim M.D. Drugs of Abuse, Urineon 10-0 Amphetamines,Ur None Detected Normal None Detected [facility] Comment on above: Performed By: #### D RUGSCRU ####Unless otherwise noted, all testing performed by [address] [id number]: [id number] Director: Geronimo Ibrahim M.D. Barbiturates,Ur None Detected Normal None Detected [facility] Comment on above: Performed By: #### D RUGSCRU ####Unless otherwise noted, all testing performed by [place] [id number]: [id number] Director: Geronimo Ibrahim M.D. Benzodiazepine,Ur None Detected Normal None [facility] Comment on above: Performed By: #### D RUGSCRU ####Unless otherwise noted, all testing performed by [address] [phone]: [id number] Director: Geronimo Ibrahim M.D. Cannabinoids,Ur Positive Abnormal None [facility] Comment on above: Performed By: #### D RUGSCRU ####Unless otherwise noted, all testing performed by [place] [id number]: [id number] Director: Geronimo Ibrahim M.D. Cocaine,Ur None Detected Normal None Detected [facility] Comment on above: Performed By: #### D RUGSCRU ####Unless otherwise noted, all testing performed by [address] [phone]: [id number] Director: Geronimo Ibrahim M.D. DOA Cutoffs See comment. Normal [facility] Comment on above: Result Comment: Drug s of Abuse, Urine Presumptive Positive Cutoff Concentrations.Amphetamine/Methamphetamine: 1000 ng/mlBarbiturates: 200 ng/mlBenzodiazepines and metabolities: 200 ng/mlCannabinoids: 50 ng/mlCocaine/Benzoylecgonine: 300 ng/mlMethadone:300 ng/mlOpiates: 300 ng/mlOxycodone/Oxymorphone: 100 ng/ml Performed By: #### D RUGSCRU ####Unless otherwise noted, all testing performed by [address] [phone]: [id number] Director: Geronimo Ibrahim M.D. Methadone,Ur None Detected Normal None Detected [facility] Comment on above: Performed By: #### D RUGSCRU ####Unless otherwise noted, all testing performed by [address] [phone]: [id number] Director: Geronimo Ibrahim M.D. Opiates,Ur None Detected Normal None Detected [facility] Comment on above: Performed By: #### D RUGSCRU ####Unless otherwise noted, all testing performed by [address] [phone]: [id number] Director: Geronimo Ibrahim M.D. Oxycodone, Urine None Detected Normal None Detected [facility] Comment on above: Result Comment: THES E DRUGS OF ABUSE TESTS ARE PROVIDED A MEDICAL SCREENING ONLY.POSITIVE RESULTS ARENOT CONFIRMED BY GCMS Performed By: #### D FAUSTINO ####Unless otherwise noted, all testing performed by [address] [phone]: [id number] Director: Geronimo Ibrahim M.D. HCG, Qualitativeon 8 HCG, Qualitative Negative Normal [facility] Comment on above: Result Comment: Nega tive: The result is less than or equal to 5 mIU/mL of HCG. Performed By: #### A LC, HCGQL ####Unless otherwise noted, all testing performed by [place] [address] [address], [place] [phone]: [id number] Director: Geronimo Ibrahim M.D. CBCon 07-31-2018 ABSOLUTE BAS 0.1 X10 Normal [facility] Comment on above: Result Comment: Test ing performed at [place] [address] Performed By: #### A CBC, CHEM7F, BHCG2 ####[place] [address] ABSOLUTE EOS 0.10 X10 Normal [facility] Comment on above: Performed By: #### A CBC, CHEM7F, BHCG2 ####[place] [address] ABSOLUTE NEUTROPHIL COUNT 5.3 x10 Normal 1.0-7.0 [facility] Comment on above: Performed By: #### A CBC, CHEM7F, BHCG2 ####[place] [address] Basophils/100 WBC Auto (Bld) 0.7 % Normal 0.0-2.0 [facility] Comment on above: Performed By: #### A CBC, CHEM7F, BHCG2 ####[place] [address] DTYPE AUTO DIFF Normal [facility] Comment on above: Performed By: #### A CBC, CHEM7F, BHCG2 ####[place] [address] Eosinophils/100 WBC Auto (Bld) 1.4 % Normal 0.0-11.0 [facility] Comment on above: Performed By: #### A CBC, CHEM7F, BHCG2 ####Testing performed at [address] [address] Lymphocytes Auto #/vol (Bld) 1.70 X10 Normal [facility] Comment on above: Performed By: #### A CBC, CHEM7F, BHCG2 ####Testing performed at [place] [id number] Lymphocytes/100 WBC Auto (Bld) 21.8 % Normal 20.0-55.0 [facility] Comment on above: Performed By: #### A CBC, CHEM7F, BHCG2 ####[place] [address] Monocytes Auto #/vol (Bld) 0.4 X10 Normal [facility] Comment on above: Performed By: #### A CBC, CHEM7F, BHCG2 ####[place] [address] Monocytes/100 WBC Auto (Bld) 5.8 % Normal 0.0-10.0 [facility] Comment on above: Performed By: #### A CBC, CHEM7F, BHCG2 ####Testing performed at [place] [id number] Neutrophils/100 WBC Auto (Bld) 70.3 % Normal 37.0-75.0 [facility] Comment on above: Performed By: #### A CBC, CHEM7F, BHCG2 ####Testing performed at [place] [id number] Erythrocyte distribution width Auto Ratio (RBC) 15.6 % High 11.5-14.5 [facility] Comment on above: Performed By: #### A CBC, CHEM7F, BHCG2 ####Testing performed at [place] [id number] Hematocrit Auto Volume Fraction (Bld) 39.8 % Normal 36.0-48.0 [facility] Comment on above: Performed By: #### A CBC, CHEM7F, BHCG2 ####[place] [address] Hemoglobin mass conc (Bld) 13.3 g/dL Normal 12.0-16.0 [facility] Comment on above: Performed By: #### A CBC, CHEM7F, BHCG2 ####[place] [address] MCH Auto Entitic mass (RBC) 25.3 pg Low 26.0-35.0 [facility] Comment on above: Performed By: #### A CBC, CHEM7F, BHCG2 ####[place] [address] MCHC Auto mass conc (RBC) 33.4 g/dL Normal 27.0-37.0 [facility] Comment on above: Performed By: #### A CBC, CHEM7F, BHCG2 ####[place] [address] MCV Auto Entitic volume (RBC) 75.8 fL Low 80.0-100.0 [facility] Comment on above: Performed By: #### A CBC, CHEM7F, BHCG2 ####[place] [address] Platelet mean volume Auto Entitic volume (Bld) 8.2 fL Normal 7.4-11.0 [facility] Comment on above: Result Comment: Test ing performed at [place] [address] Performed By: #### A CBC, CHEM7F, BHCG2 ####[place] [address] Platelets Auto #/vol (Bld) 263 /cmm Normal 130.0-400.0 [facility] Comment on above: Performed By: #### A CBC, CHEM7F, BHCG2 ####[place] [address] RBC Auto #/vol (Bld) 5.25 /cmm Normal 4.0-5.4 [facility] Comment on above: Performed By: #### A CBC, CHEM7F, BHCG2 ####[place] [address] WBC Auto #/vol (Bld) 7.6 /cmm Normal 3.6-11.0 [facility] Comment on above: Performed By: #### A CBC, CHEM7F, BHCG2 ####[place] [address] CHEM 7 FASTINGon 07-31-2018 Chloride molar conc 104 mmol/L Normal 98-107 [facility] Comment on above: Performed By: #### A CBC, CHEM7F, BHCG2 ####[place] [address] CO2 molar conc 23 mmol/L Normal 22-30 [facility] Comment on above: Performed By: #### A CBC, CHEM7F, BHCG2 ####[place] [address] Creatinine mass conc 0.8 mg/dL Normal 0.7-1.2 [facility] Comment on above: Performed By: #### A CBC, CHEM7F, BHCG2 ####[place] [address] EST. GFR, >60 Normal [facility] Comment on above: Performed By: #### A CBC, CHEM7F, BHCG2 ####[place] [address] EST. GFR,Non >60 Normal [facility] [place] Comment on above: Performed By: #### A CBC, CHEM7F, BHCG2 ####[place] [address] GFR/1.73 sq M predicted among non-blacks MDRD vol rate/area (S/P/Bld) Average GFR for 20-29 years old = 116. Normal [facility] [place] Comment on above: Result Comment: Lead Business Systems Analyst frantz Kidney disease, GFR = <60.Kidney failure, GFR = <15.The GFR estimate is not adjusted for extreme body surface area or acute process, nor has it been validated for women or ethnic groups other than and .Testing performed at [place] [address] Performed By: #### A CBC, CHEM7F, BHCG2 ####[place] [address] Glucose mass conc 99 mg/dL Normal 70-100 [facility] Comment on above: Result Comment: NORM AL <100 mg/dLPREDIABETES 101-126 mg/dLDIABETES 126 mg/dL or higher Performed By: #### A CBC, CHEM7F, BHCG2 ####[place] [address] Potassium molar conc 4.1 mmol/L Normal 3.5-5.1 [facility] Comment on above: Performed By: #### A CBC, CHEM7F, BHCG2 ####[place] [address] Sodium molar conc 139 mmol/L Normal 137-145 [facility] Comment on above: Performed By: #### A CBC, CHEM7F, BHCG2 ####[place] [address] Urea nitrogen mass conc (Bld) 8 mg/dL Normal 7-20 [facility] [place] Comment on above: Performed By: #### A CBC, CHEM7F, BHCG2 ####[place] [address] CT ABDOMEN/PELVIS WITHOUT CO NTRASTon 07-31-2018 CT ABDOMEN/PELVIS WITHOUT CONTRAST EXAM: CT ABDOMEN/PELVIS WITHOUT CONTRAST CLINICAL STATEMENT: Upper abdominal pain and vomiting for 2 days. COMPARISON: None. TECHNIQUE: CT examination of the abdomen and pelvis without IV contrast. Coronal and sagittal reformations were performed. Dose reduction techniques were achieved by using automated exposure control and/or adjustment of mA and/or kV according to patient size and/or use of iterative reconstruction technique.FINDINGS: The lung bases are clear. Lower mediastinal structures are normal.The liver is normal in size and appearance.The spleen is normal in size and appearance.The adrenal glands, pancreas, gallbladder are normal.The kidneys are symmetric in size. No calcifications are seen and there is no hydronephrosis on either side.The aorta has a normal course and caliber.The large and small bowel are normal, including a well-seen appendix in the right lower quadrant.Pelvic organs are grossly normal.Urinary bladder is grossly normal.There is no free air or free fluid and no inflammatory stranding is seen.Osseous structures are unremarkable.IMPRESSION: No acute process. No abnormality is seen to account for the symptoms. Normal [facility] [place] ESRon 07-31-2018 ESR Velocity (Bld) 79 mm/h High 0-15 [facility] [place] Comment on above: Result Comment: Test ing performed at [place] [address] Performed By: #### A CBC, CHEM7F, BHCG2 ####[place] [address] LACTIC ACIDon 07-31-2018 Lactate molar conc 1.2 mmol/L Normal 0.7-2.0 [facility] [place] Comment on above: Result Comment: Test ing performed at [place] [address] Performed By: #### A CBC, CHEM7F, BHCG2 ####[place] [address] LIPASE,SERUMon 07-31-2018 LIPASE,SERUM 50 U/L Normal 23-300 [facility] [place] Comment on above: Result Comment: Test ing performed at [place] [address] Performed By: #### A CBC, CHEM7F, BHCG2 ####[place] [address] LIVER PANELon 07-31-2018 Albumin mass conc 4.3 g/dL Normal 2.9-5.3 [facility] Comment on above: Performed By: #### A CBC, CHEM7F, BHCG2 ####[place] [address] ALP enzyme act/vol 98 U/L Normal 38-126 [facility] [place] Comment on above: Performed By: #### A CBC, CHEM7F, BHCG2 ####[place] [address] ALT enzyme act/vol 23 U/L Normal 9-52 [facility] [place] Comment on above: Result Comment: Test ing performed at [place] [address] Performed By: #### A CBC, CHEM7F, BHCG2 ####[place] [address] AST enzyme act/vol 19 U/L Normal 14-36 [facility] [place] Comment on above: Performed By: #### A CBC, CHEM7F, BHCG2 ####[place] [address] Bilirubin mass conc 1.4 mg/dL High 0.2-1.3 [facility] [place] Comment on above: Performed By: #### A CBC, CHEM7F, BHCG2 ####[place] [address] Bilirubin.direct mass conc 0.2 mg/dL Normal 0-0.4 [facility] [place] Comment on above: Performed By: #### A CBC, CHEM7F, BHCG2 ####[place] [address] Protein mass conc 7.5 g/dL Normal 6.3-8.2 [facility] Comment on above: Performed By: #### A CBC, CHEM7F, BHCG2 ####[place] [address] CBCon 07-26-2018 ABSOLUTE BAS 0.1 X10 Normal [facility] Comment on above: Performed By: #### L IPA2, ACBC, CMPF, ESR ####Testing performed at [address] [address] ABSOLUTE EOS 0.10 X10 Normal [facility] Comment on above: Performed By: #### L IPA2, ACBC, CMPF, ESR ####Testing performed at [address] [place] [address] ABSOLUTE NEUTROPHIL COUNT 5.4 x10 Normal 1.0-7.0 [facility] Comment on above: Performed By: #### L IPA2, ACBC, CMPF, ESR ####Testing performed at [address] [place] [address] Basophils/100 WBC Auto (Bld) 0.8 % Normal 0.0-2.0 [facility] Comment on above: Performed By: #### L IPA2, ACBC, CMPF, ESR ####Testing performed at [address] [address] DTYPE AUTO DIFF Normal [facility] Comment on above: Performed By: #### L IPA2, ACBC, CMPF, ESR ####Testing performed at [address] [address] Eosinophils/100 WBC Auto (Bld) 1.6 % Normal 0.0-11.0 [facility] Comment on above: Performed By: #### L IPA2, ACBC, CMPF, ESR ####Testing performed at [address] [address] Lymphocytes Auto #/vol (Bld) 2.10 X10 Normal [facility] Comment on above: Performed By: #### L IPA2, ACBC, CMPF, ESR ####Testing performed at [address] [place] [address] Lymphocytes/100 WBC Auto (Bld) 25.8 % Normal 20.0-55.0 [facility] Comment on above: Performed By: #### L IPA2, ACBC, CMPF, ESR ####Testing performed at [address] [place] [address] Monocytes Auto #/vol (Bld) 0.4 X10 Normal [facility] Comment on above: Performed By: #### L IPA2, ACBC, CMPF, ESR ####Testing performed at [address] [place] [address] Monocytes/100 WBC Auto (Bld) 4.8 % Normal 0.0-10.0 [facility] Comment on above: Performed By: #### L IPA2, ACBC, CMPF, ESR ####[place] [address] Neutrophils/100 WBC Auto (Bld) 67.0 % Normal 37.0-75.0 [facility] Comment on above: Performed By: #### L IPA2, ACBC, CMPF, ESR ####[place] [address] Erythrocyte distribution width Auto Ratio (RBC) 15.6 % High 11.5-14.5 [facility] Comment on above: Performed By: #### L IPA2, ACBC, CMPF, ESR ####[place] [address] Hematocrit Auto Volume Fraction (Bld) 38.8 % Normal 36.0-48.0 [facility] Comment on above: Performed By: #### L IPA2, ACBC, CMPF, ESR ####[place] [address] Hemoglobin mass conc (Bld) 13.0 g/dL Normal 12.0-16.0 [facility] Comment on above: Performed By: #### L IPA2, ACBC, CMPF, ESR ####[place] [address] MCH Auto Entitic mass (RBC) 25.6 pg Low 26.0-35.0 [facility] Comment on above: Performed By: #### L IPA2, ACBC, CMPF, ESR ####[place] [address] MCHC Auto mass conc (RBC) 33.5 g/dL Normal 27.0-37.0 [facility] Comment on above: Performed By: #### L IPA2, ACBC, CMPF, ESR ####[place] [address] MCV Auto Entitic volume (RBC) 76.3 fL Low 80.0-100.0 [facility] Comment on above: Performed By: #### L IPA2, ACBC, CMPF, ESR ####Testing performed [place] [address] Platelet mean volume Auto Entitic volume (Bld) 8.4 fL Normal 7.4-11.0 [facility] Comment on above: Performed By: #### L IPA2, ACBC, CMPF, ESR ####Testing performed at [place] [id number] Platelets Auto #/vol (Bld) 268 /cmm Normal 130.0-400.0 [facility] Comment on above: Performed By: #### L IPA2, ACBC, CMPF, ESR ####[place] [address] RBC Auto #/vol (Bld) 5.08 /cmm Normal 4.0-5.4 [facility] Comment on above: Performed By: #### L IPA2, ACBC, CMPF, ESR ####[place] [address] WBC Auto #/vol (Bld) 8.1 /cmm Normal 3.6-11.0 [facility] Comment on above: Performed By: #### L IPA2, ACBC, CMPF, ESR ####[place] [address] CMP FASTINGon 07-26-2018 A:G RATIO 1.0 RATIO Low 1.3-2.2 [facility] Comment on above: Performed By: #### L IPA2, ACBC, CMPF, ESR ####[place] [address] Albumin mass conc 4.3 G/dl Normal 3.5-5.0 [facility] Comment on above: Performed By: #### L IPA2, ACBC, CMPF, ESR ####[place] [address] ALP enzyme act/vol 89 U/L Normal 38-126 [facility] Comment on above: Performed By: #### L IPA2, ACBC, CMPF, ESR ####[place] [address] ALT enzyme act/vol 19 U/L Normal 14-54 [facility] Comment on above: Performed By: #### L IPA2, ACBC, CMPF, ESR ####[place] [address] AST enzyme act/vol 23 U/L Normal 15-41 [facility] Comment on above: Performed By: #### L IPA2, ACBC, CMPF, ESR ####[place] [address] Bilirubin mass conc 0.7 mg/dL Normal 0.2-1.2 [facility] Comment on above: Performed By: #### L IPA2, ACBC, CMPF, ESR ####[place] [address] Creatinine mass conc 0.9 mg/dL Normal 0.52-1.04 [facility] Comment on above: Performed By: #### L IPA2, ACBC, CMPF, ESR ####[place] [address] EST. GFR, >60 Normal [facility] Comment on above: Performed By: #### L IPA2, ACBC, CMPF, ESR ####[place] [address] EST. GFR,Non >60 Normal [facility] Comment on above: Performed By: #### L IPA2, ACBC, CMPF, ESR ####[place] [address] GFR/1.73 sq M predicted among non-blacks MDRD vol rate/area (S/P/Bld) Average GFR for 20-29 years old = 116. Normal [facility] Comment on above: Result Comment: Lead Business Systems Analyst frantz Kidney disease, GFR = <60.Kidney failure, GFR = <15.The GFR estimate is not adjusted for extreme body surface area or acute process, nor has it been validated for women or ethnic groups other than and . Performed By: #### L IPA2, ACBC, CMPF, ESR ####[place] [address] Protein mass conc 8.4 g/dL High 6.3-8.2 [facility] Comment on above: Performed By: #### L IPA2, ACBC, CMPF, ESR ####Testing performed at [address] [address] Urea nitrogen mass conc (Bld) mg/dL Low 7-20 [facility] Comment on above: Performed By: #### L IPA2, ACBC, CMPF, ESR ####Testing performed at [address] [address] Calcium mass conc 9.4 mg/dL Normal 8.4-10.2 [facility] Comment on above: Performed By: #### L IPA2, ACBC, CMPF, ESR ####Testing performed at [address] [address] Chloride molar conc 103 mmol/L Normal 98-107 [facility] Comment on above: Performed By: #### L IPA2, ACBC, CMPF, ESR ####Testing performed at [address] [address] CO2 molar conc 25 mmol/L Normal 22-30 [facility] Comment on above: Performed By: #### L IPA2, ACBC, CMPF, ESR ####Testing performed at [address] [address] Glucose mass conc 124 mg/dL High 70-100 [facility] Comment on above: Result Comment: NORM AL <100 mg/dLPREDIABETES 101-126 mg/dLDIABETES 126 mg/dL or higher Performed By: #### L IPA2, ACBC, CMPF, ESR ####Testing performed at [address] [address] Potassium molar conc 3.1 mmol/L Low 3.5-5.1 [facility] Comment on above: Performed By: #### L IPA2, ACBC, CMPF, ESR ####Testing performed at [address] [address] Sodium molar conc 138 mmol/L Normal 136-145 [facility] Comment on above: Performed By: #### L IPA2, ACBC, CMPF, ESR ####Testing performed at [address] [address] ED NOTEon 07-26-2018 [facility] NOTES Normal [facility] ED PROVIDERon 07-26-2018 [facility] NOTES Normal [facility] ESRon 07-26-2018 ESR Velocity (Bld) 46 mm/h High 0-15 [facility] Comment on above: Performed By: #### L IPA2, ACBC, CMPF, ESR ####[place] [address] LACTIC ACIDon 07-26-2018 Lactate molar conc 2.1 mmol/L Critically high 0.5-2.0 [facility] Comment on above: Result Comment: PLEA REPEAT INITIAL CRITICAL IN 3 HOURS IF ED OR INPATIENT SEPSIS PATIENTResult called to read back by: SHY DAMIAN 07/26/2018 @ 14:54 by KASSIDY Performed By: #### L ACT ####[place] [address] LIPASE,SERUMon 07-26-2018 LIPASE,SERUM 22 U/L Low 23-300 [facility] Comment on above: Performed By: #### L IPA2, ACBC, CMPF, ESR ####[place] [address] RAPID TOX SCREEN,URINEon AMPHETAMINE Negative Normal NEGATIVE [facility] Comment on above: Result Comment: <500 ng/ml CUTOFF Performed By: #### R TOX, UHCGT ####[place] [address] BARBITURATES Negative Normal NEGATIVE [facility] Comment on above: Result Comment: <200 ng/ml CUTOFF Performed By: #### R TOX, UHCGT ####[place] [address] BENZODIAZEPINES Negative Normal NEGATIVE [facility] Comment on above: Result Comment: <150 ng/ml CUTOFF Performed By: #### R TOX, UHCGT ####[place] [address] BUPRENORPHINE Negative Normal NEGATIVE [facility] Comment on above: Result Comment: <10 ng/ml CUTOFF Performed By: #### R TOX, UHCGT ####Testing performed at [address] [place] [address] CANNABINOIDS Positive Abnormal NEGATIVE [facility] Comment on above: Result Comment: <50 ng/ml CUTOFF*Unconfirmed Screening Result* Unconfirmed screening results are to be used only for medical treatment purposes. Performed By: #### R TOX, UHCGT ####Testing performed at [address] [place] [address] COCAINE Negative Normal NEGATIVE [facility] Comment on above: Result Comment: <150 ng/ml CUTOFF Performed By: #### R TOX, UHCGT ####Testing performed at [address] [place] [address] METHADONE Negative Normal NEGATIVE [facility] Comment on above: Result Comment: <200 ng/ml CUTOFF Performed By: #### R TOX, UHCGT ####Testing performed at [address] [place] [address] METHAMPHETAMINE Negative Normal NEGATIVE [facility] Comment on above: Result Comment: <500 ng/ml CUTOFF Performed By: #### R TOX, UHCGT ####Testing performed at [address] [place] [address] OPIATES Negative Normal NEGATIVE [facility] Comment on above: Result Comment: <100 ng/ml CUTOFF Performed By: #### R TOX, UHCGT ####Testing performed at [address] [place] [address] OXYCODONE Negative Normal NEGATIVE [facility] Comment on above: Result Comment: <100 ng/ml CUTOFF Performed By: #### R TOX, UHCGT ####Testing performed at [address] [place] [address] PHENCYCLIDINE Negative Normal NEGATIVE [facility] Comment on above: Result Comment: <25 ng/ml CUTOFF Performed By: #### R TOX, UHCGT ####Testing performed at [address] [place] [address] Protein mass conc Negative Normal NEGATIVE [facility] Comment on above: Result Comment: <300 ng/ml CUTOFF Performed By: #### R TOX, UHCGT ####Testing performed at [address] [address] TRICYCLIC ANTIDEPRESSANTS Negative Normal NEGATIVE [facility] Comment on above: Result Comment: <300 ng/ml CUTOFF Performed By: #### R TOX CGT ####Testing performed at [address] [address] URINE HCG QUALon 07-26-2018 HCG.beta subunit ( test) Ql (U) Negative Normal NEGATIVE [facility] Comment on above: Performed By: #### R TOX CGT ####Testing performed at [address] [address] ACETAMINOPHENon 07-12-2018 Acetaminophen mass conc <10.0 Low 10-30 [facility] ALCOHOLon 07-12-2018 Ethanol mass conc mg/dL Normal 0-10 [facility] Comment on above: Result Comment: INTOXICATION >80 MG/DL FATAL >400 MG/DL Performed By: #### A CBC ####Testing performed at [address] [address] CBCon 07-12-2018 ABSOLUTE BAS 0.1 X10 Normal [facility] Comment on above: Performed By: #### A CBC ####Testing performed at [address] [address] ABSOLUTE EOS 0.20 X10 Normal [facility] Comment on above: Performed By: #### A CBC ####Testing performed at [address] [address] ABSOLUTE NEUTROPHIL COUNT 7.0 x10 Normal 1.0-7.0 [facility] Comment on above: Performed By: #### A CBC ####Testing performed at [address] [address] Basophils/100 WBC (Bld) 0.7 % Normal 0.0-2.0 [facility] Comment on above: Performed By: #### A CBC ####Testing performed at [address] [address] DTYPE AUTO DIFF Normal [facility] Comment on above: Performed By: #### A CBC ####Testing performed at [address] [address] Eosinophils/100 WBC (Bld) 1.5 % Normal 0.0-11.0 [facility] Comment on above: Performed By: #### A CBC ####Testing performed at [address] [address] Lymphocytes #/vol (Bld) 1.90 X10 Normal [facility] Comment on above: Performed By: #### A CBC ####Testing performed at [address] [address] Lymphocytes/100 WBC (Bld) 19.8 % Low 20.0-55.0 [facility] Comment on above: Performed By: #### A CBC ####Testing performed at [address] [address] Monocytes #/vol (Bld) 0.6 X10 Normal [facility] Comment on above: Performed By: #### A CBC ####Testing performed at [address] [address] Monocytes/100 WBC (Bld) 6.2 % Normal 0.0-10.0 [facility] Comment on above: Performed By: #### A CBC ####Testing performed at [address] [address] Neutrophils/100 WBC (Bld) 71.8 % Normal 37.0-75.0 [facility] Comment on above: Performed By: #### A CBC ####Testing performed at [address] [address] Erythrocyte distribution width Ratio (RBC) 15.3 % High 11.5-14.5 [facility] Comment on above: Performed By: #### A CBC ####Testing performed at [address] [address] Hematocrit Volume Fraction (Bld) 40.7 % Normal 36.0-48.0 [facility] Comment on above: Performed By: #### A CBC ####Testing performed at [address] [address] Hemoglobin mass conc (Bld) 13.3 g/dL Normal 12.0-16.0 [facility] Comment on above: Performed By: #### A CBC ####Testing performed at [address] [address] MCH Entitic mass (RBC) 24.8 pg Low 26.0-35.0 [facility] Comment on above: Performed By: #### A CBC ####Testing performed at [address] [address] MCHC mass conc (RBC) 32.7 g/dL Normal 27.0-37.0 [facility] Comment on above: Performed By: #### A CBC ####Testing performed at [address] [address] MCV Entitic volume (RBC) 75.7 fL Low 80.0-100.0 [facility] Comment on above: Performed By: #### A CBC ####Testing performed at [address] [address] Platelet mean volume Entitic volume (Bld) 8.3 fL Normal 7.4-11.0 [facility] Comment on above: Performed By: #### A CBC ####Testing performed at [address] [address] Platelets #/vol (Bld) 312 /cmm Normal 130.0-400.0 [facility] Comment on above: Performed By: #### A CBC ####Testing performed at [address] [address] RBC #/vol (Bld) 5.37 /cmm Normal 4.0-5.4 [facility] Comment on above: Performed By: #### A CBC ####Testing performed at [place] [id number] WBC #/vol (Bld) 9.8 /cmm Normal 3.6-11.0 [facility] Comment on above: Performed By: #### A CBC ####[place] [address] CHEM 7 FASTINGon 07-12-2018 Chloride molar conc 104 mmol/L Normal 98-107 [facility] Comment on above: Performed By: #### A CBC ####[place] [address] CO2 molar conc 22 mmol/L Normal 22-30 [facility] Comment on above: Performed By: #### A CBC ####[place] [address] Creatinine mass conc 0.9 mg/dL Normal 0.7-1.2 [facility] Comment on above: Performed By: #### A CBC ####Testing performed at [place] [id number] EST. GFR, >60 Normal [facility] Comment on above: Performed By: #### A CBC ####Testing performed at [place] [id number] EST. GFR,Non >60 Normal [facility] Comment on above: Performed By: #### A CBC ####Testing performed at [address] [address] GFR/1.73 sq M predicted among non-blacks MDRD vol rate/area (S/P/Bld) Average GFR for 20-29 years old = 116. Normal [facility] Comment on above: Result Comment: Lead Business Systems Analyst frantz Kidney disease, GFR = <60. Kidney failure, GFR = <15. The GFR estimate is not adjusted for extreme body surface area or acute process, nor has it been validated for women or ethnic groups other than and . Performed By: #### A CBC ####Testing performed at [address] [address] Glucose mass conc 170 mg/dL High 70-100 [facility] Comment on above: Result Comment: NORMAL <100 mg/dL PREDIABETES 101-126 mg/dL DIABETES 126 mg/dL or higher Performed By: #### A CBC ####Testing performed at [address] [address] Potassium molar conc 3.4 mmol/L Low 3.5-5.1 [facility] Comment on above: Performed By: #### A CBC ####Testing performed at [address] [address] Sodium molar conc 141 mmol/L Normal 137-145 [facility] Comment on above: Performed By: #### A CBC ####Testing performed at [address] [address] Urea nitrogen mass conc 9 mg/dL Normal 7-20 [facility] Comment on above: Performed By: #### A CBC ####Testing performed at [address] [address] LIVER PANELon 07-12-2018 Albumin mass conc 4.7 g/dL Normal 2.9-5.3 [facility] Comment on above: Performed By: #### A CBC ####Testing performed at [address] [address] ALP enzyme act/vol 100 U/L Normal 38-126 [facility] Comment on above: Performed By: #### A CBC ####Testing performed at [address] [address] ALT enzyme act/vol 32 U/L Normal 9-52 [facility] Comment on above: Performed By: #### A CBC ####Testing performed at [address] [place] [address] AST enzyme act/vol 25 U/L Normal 14-36 [facility] Comment on above: Performed By: #### A CBC ####Testing performed at [address] [address] Bilirubin mass conc 1.5 mg/dL High 0.2-1.3 [facility] Comment on above: Performed By: #### A CBC ####Testing performed at [place] [id number] Bilirubin.direct mass conc 0.3 mg/dL Normal 0-0.4 [facility] Comment on above: Performed By: #### A CBC ####[place] [address] Protein mass conc 8.4 g/dL High 6.3-8.2 [facility] Comment on above: Performed By: #### A CBC ####Testing performed at [address] [address] PROTIMEon 07-12-2018 INR Coag RelTime (PPP) 1.06 {INR} Normal 0.87-1.13 [facility] Comment on above: Result Comment: 2.0- 3.0 THERAPEUTIC RANGE 2.5-3.5 PROSTHETIC VALVE RANGE Performed By: #### A CBC ####Testing performed at [place] [id number] Prothrombin time (PT) Coag time (PPP) 11.0 s Normal 10.0-13.0 [facility] Comment on above: Performed By: #### A CBC ####Testing performed at [address] [address] RAPID TOX SCREEN,URINEon AMPHETAMINE Negative Normal NEGATIVE [facility] Comment on above: Result Comment: <500 ng/ml CUTOFF Performed By: #### U HCGT ####Testing performed at [place] [id number] BARBITURATES Negative Normal NEGATIVE [facility] Comment on above: Result Comment: <200 ng/ml CUTOFF Performed By: #### U HCGT ####Testing performed at [address] [address] Benzodiazepines Ql (U) Negative Normal NEGATIVE [facility] Comment on above: Result Comment: <150 ng/ml CUTOFF Performed By: #### U HCGT ####Testing performed at [address] [address] BUPRENORPHINE Negative Normal NEGATIVE [facility] Comment on above: Result Comment: <10 ng/ml CUTOFF Performed By: #### U HCGT ####Testing performed at [address] [address] Cannabinoids Screen Ql (U) Positive Abnormal NEGATIVE [facility] Comment on above: Result Comment: <50 ng/ml CUTOFF *Unconfirmed Screening Result* Unconfirmed screening results are to be used only for medical treatment purposes. Performed By: #### U HCGT ####Testing performed at [address] [address] Cocaine Ql (U) Negative Normal NEGATIVE [facility] Comment on above: Result Comment: <150 ng/ml CUTOFF Performed By: #### U HCGT ####Testing performed at [address] [address] Methadone Ql (U) Negative Normal NEGATIVE [facility] Comment on above: Result Comment: <200 ng/ml CUTOFF Performed By: #### U HCGT ####Testing performed at [address] [address] METHAMPHETAMINE Negative Normal NEGATIVE [facility] Comment on above: Result Comment: <500 ng/ml CUTOFF Performed By: #### U HCGT ####Testing performed at [address] [address] Opiates Ql (U) Negative Normal NEGATIVE [facility] Comment on above: Result Comment: <100 ng/ml CUTOFF Performed By: #### U HCGT ####Testing performed at [address] [address] OXYCODONE Negative Normal NEGATIVE [facility] Comment on above: Result Comment: <100 ng/ml CUTOFF Performed By: #### U HCGT ####Testing performed at [address] [address] Phencyclidine Ql (U) Negative Normal NEGATIVE [facility] Comment on above: Result Comment: <25 ng/ml CUTOFF Performed By: #### U HCGT ####Testing performed at [address] [address] Protein mass conc (U) Negative Normal NEGATIVE [facility] Comment on above: Result Comment: <300 ng/ml CUTOFF Performed By: #### U HCGT ####Testing performed at [address] [address] Tricyclic antidepressants Screen Ql (U) Negative Normal NEGATIVE [facility] Comment on above: Result Comment: <300 ng/ml CUTOFF Performed By: #### U HCGT ####Testing performed at [address] [address] SALICYLATESon 07-12-2018 SALICYLATES <1.0 Normal 0-20 [facility] TSHon 07-12-2018 Thyrotropin Qn 1.140 uIU/ML Normal 0.46-4.68 [facility] Comment on above: Performed By: #### A CBC ####Testing performed at [address] [address] URINE HCG QUALon 07-12-2018 HCG.beta subunit ( test) Ql (U) Negative Normal [facility] Comment on above: Performed By: #### U HCGT ####Testing performed at [address] [address] CBCon 07-09-2018 ABSOLUTE BAS 0.1 X10 Normal [facility] Comment on above: Result Comment: Test ing performed at [place] [address] Performed By: #### A CBC, CHEM7F, BHCG2 ####[place] [address] ABSOLUTE EOS 0.20 X10 Normal [facility] Comment on above: Performed By: #### A CBC, CHEM7F, BHCG2 ####[place] [address] ABSOLUTE NEUTROPHIL COUNT 5.8 x10 Normal 1.0-7.0 [facility] Comment on above: Performed By: #### A CBC, CHEM7F, BHCG2 ####[place] [address] Basophils/100 WBC Auto (Bld) 0.8 % Normal 0.0-2.0 [facility] Comment on above: Performed By: #### A CBC, CHEM7F, BHCG2 ####[place] [address] DTYPE AUTO DIFF Normal [facility] Comment on above: Performed By: #### A CBC, CHEM7F, BHCG2 ####[place] [address] Eosinophils/100 WBC Auto (Bld) 2.8 % Normal 0.0-11.0 [facility] Comment on above: Performed By: #### A CBC, CHEM7F, BHCG2 ####[place] [address] Lymphocytes Auto #/vol (Bld) 1.50 X10 Normal [facility] Comment on above: Performed By: #### A CBC, CHEM7F, BHCG2 ####[place] [address] Lymphocytes/100 WBC Auto (Bld) 18.7 % Low 20.0-55.0 [facility] Comment on above: Performed By: #### A CBC, CHEM7F, BHCG2 ####[place] [address] Monocytes Auto #/vol (Bld) 0.3 X10 Normal [facility] Comment on above: Performed By: #### A CBC, CHEM7F, BHCG2 ####[place] [address] Monocytes/100 WBC Auto (Bld) 4.1 % Normal 0.0-10.0 [facility] Comment on above: Performed By: #### A CBC, CHEM7F, BHCG2 ####[place] [address] Neutrophils/100 WBC Auto (Bld) 73.6 % Normal 37.0-75.0 [facility] Comment on above: Performed By: #### A CBC, CHEM7F, BHCG2 ####[place] [address] Erythrocyte distribution width Auto Ratio (RBC) 15.0 % High 11.5-14.5 [facility] Comment on above: Performed By: #### A CBC, CHEM7F, BHCG2 ####[place] [address] Hematocrit Auto Volume Fraction (Bld) 37.5 % Normal 36.0-48.0 [facility] Comment on above: Performed By: #### A CBC, CHEM7F, BHCG2 ####[place] [address] Hemoglobin mass conc (Bld) 12.3 g/dL Normal 12.0-16.0 [facility] Comment on above: Performed By: #### A CBC, CHEM7F, BHCG2 ####[place] [address] MCH Auto Entitic mass (RBC) 24.9 pg Low 26.0-35.0 [facility] Comment on above: Performed By: #### A CBC, CHEM7F, BHCG2 ####[place] [address] MCHC Auto mass conc (RBC) 32.7 g/dL Normal 27.0-37.0 [facility] Comment on above: Performed By: #### A CBC, CHEM7F, BHCG2 ####[place] [address] MCV Auto Entitic volume (RBC) 76.1 fL Low 80.0-100.0 [facility] Comment on above: Performed By: #### A CBC, CHEM7F, BHCG2 ####[place] [address] Platelet mean volume Auto Entitic volume (Bld) 8.3 fL Normal 7.4-11.0 [facility] Comment on above: Performed By: #### A CBC, CHEM7F, BHCG2 ####[place] [address] Platelets Auto #/vol (Bld) 262 /cmm Normal 130.0-400.0 [facility] Comment on above: Performed By: #### A CBC, CHEM7F, BHCG2 ####[place] [address] RBC Auto #/vol (Bld) 4.93 /cmm Normal 4.0-5.4 [facility] Comment on above: Performed By: #### A CBC, CHEM7F, BHCG2 ####[place] [address] WBC Auto #/vol (Bld) 7.9 /cmm Normal 3.6-11.0 [facility] Comment on above: Performed By: #### A CBC, CHEM7F, BHCG2 ####[place] [address] CHEM 7 FASTINGon 07-09-2018 Chloride molar conc 105 mmol/L Normal 98-107 [facility] Comment on above: Performed By: #### A CBC, CHEM7F, BHCG2 ####Testing performed at [place] [id number] CO2 molar conc 25 mmol/L Normal 22-30 [facility] Comment on above: Performed By: #### A CBC, CHEM7F, BHCG2 ####[place] [address] Creatinine mass conc 0.8 mg/dL Normal 0.7-1.2 [facility] Comment on above: Performed By: #### A CBC, CHEM7F, BHCG2 ####[place] [address] EST. GFR, >60 Normal [facility] Comment on above: Performed By: #### A CBC, CHEM7F, BHCG2 ####[place] [address] EST. GFR,Non >60 Normal [facility] Comment on above: Performed By: #### A CBC, CHEM7F, BHCG2 ####[place] [address] GFR/1.73 sq M predicted among non-blacks MDRD vol rate/area (S/P/Bld) Average GFR for 20-29 years old = 116. Normal [facility] Comment on above: Result Comment: [employer]st frantz Kidney disease, GFR = <60.Kidney failure, GFR = <15.The GFR estimate is not adjusted for extreme body surface area or acute process, nor has it been validated for women or ethnic groups other than and .Testing performed at [place] [address] Performed By: #### A CBC, CHEM7F, BHCG2 ####[place] [address] Glucose mass conc 101 mg/dL High 70-100 [facility] Comment on above: Result Comment: NORM AL <100 mg/dLPREDIABETES 101-126 mg/dLDIABETES 126 mg/dL or higher Performed By: #### A CBC, CHEM7F, BHCG2 ####[place] [address] Potassium molar conc 4.1 mmol/L Normal 3.5-5.1 [facility] Comment on above: Performed By: #### A CBC, CHEM7F, BHCG2 ####[place] [address] Sodium molar conc 140 mmol/L Normal 137-145 [facility] Comment on above: Performed By: #### A CBC, CHEM7F, BHCG2 ####[place] [address] Urea nitrogen mass conc (Bld) 8 mg/dL Normal 7-20 [facility] Comment on above: Performed By: #### A CBC, CHEM7F, BHCG2 ####[place] [address] ESRon 07-09-2018 ESR Velocity (Bld) 55 mm/h High 0-15 [facility] Comment on above: Result Comment: Test ing performed at [place] [address] Performed By: #### A CBC, CHEM7F, BHCG2 ####[place] [address] URINE HCG QUALon 07-09-2018 HCG.beta subunit ( test) Ql (U) Negative Normal [facility] Comment on above: Result Comment: Test ing performed at [place] [address] Performed By: #### A CBC, CHEM7F, BHCG2 ####[place] [address] URINE MACROSCOPICon 07-09-20 18 Bilirubin Ql (U) Negative Normal NEGATIVE [facility] Comment on above: Performed By: #### A CBC, CHEM7F, BHCG2 ####[place] [address] Clarity Nom (U) CLEAR Abnormal CLEAR [facility] Comment on above: Performed By: #### A CBC, CHEM7F, BHCG2 ####[place] [address] Color Nom (U) YELLOW Normal YELLOW [facility] Comment on above: Performed By: #### A CBC, CHEM7F, BHCG2 ####[place] [address] Glucose Ql (U) Negative Normal NEGATIVE [facility] Comment on above: Performed By: #### A CBC, CHEM7F, BHCG2 ####[place] [address] pH Test strip (U) 6.0 [pH] Normal 5.0-7.0 [facility] Comment on above: Performed By: #### A CBC, CHEM7F, BHCG2 ####[place] [address] URINE HEMOGLOBIN MODERATE Abnormal NEGATIVE [facility] Comment on above: Performed By: #### A CBC, CHEM7F, BHCG2 ####[place] [address] URINE KETONE Negative Normal NEGATIVE [facility] Comment on above: Performed By: #### A CBC, CHEM7F, BHCG2 ####[place] [address] URINE LEUKOTEST TRACE Abnormal NEGATIVE [facility] Comment on above: Result Comment: Test ing performed at [place] [address] Performed By: #### A CBC, CHEM7F, BHCG2 ####[place] [address] URINE NITRATES Negative Normal NEGATIVE [facility] Comment on above: Performed By: #### A CBC, CHEM7F, BHCG2 ####[place] [address] URINE SPEC GRAVITY 1.025 Normal 1.010-1.025 [facility] Comment on above: Performed By: #### A CBC, CHEM7F, BHCG2 ####[place] [address] URINE TOTAL PROTEIN Negative Normal NEGATIVE [facility] Comment on above: Performed By: #### A CBC, CHEM7F, BHCG2 ####[place] [address] Urobilinogen Test strip Qn (U) 0.2 mg/dl Normal 0.2-1.0 [facility] Comment on above: Performed By: #### A CBC, CHEM7F, BHCG2 ####[place] [address] URINE MICROSCOPICon 07-09-20 18 BACTERIA Negative Normal NEGATIVE [facility] Comment on above: Performed By: #### A CBC, CHEM7F, BHCG2 ####[place] [address] CASTS NONE Normal NONE [facility] Comment on above: Performed By: #### A CBC, CHEM7F, BHCG2 ####[place] [address] CRYSTAL NONE Normal [facility] Comment on above: Performed By: #### A CBC, CHEM7F, BHCG2 ####[place] [address] EPITHELIAL CELLS TOO NUMEROUS TO COUNT Normal [facility] Comment on above: Performed By: #### A CBC, CHEM7F, BHCG2 ####[place] [address] MUCUS Negative Normal NEGATIVE [facility] Comment on above: Performed By: #### A CBC, CHEM7F, BHCG2 ####[place] [address] RBC Test strip #/vol (U) Negative Normal NEGATIVE [facility] Comment on above: Performed By: #### A CBC, CHEM7F, BHCG2 ####[place] [address] URINE COMMENT POSSIBLY CONTAMINATE D SPECIMEN, CULTURE MUST BE ORDERED SEPARATELY IF DEEMED NECESSARY. Normal [facility] Comment on above: Result Comment: Test ing performed at [place] [address] Performed By: #### A CBC, CHEM7F BHCG2 ####Testing performed at [address] [address] URINE WBC'S 1 TO 5 Normal NEGATIVE [facility] Comment on above: Performed By: #### A CBC, CHEM7F, BHCG2 ####Testing performed at [place] [id number] CBCon 05-19-2018 ABSOLUTE BAS 0.1 X10 Normal [facility] Comment on above: Performed By: #### A CBC ####Testing performed at [address] [address] ABSOLUTE EOS 0.10 X10 Normal [facility] Comment on above: Performed By: #### A CBC ####Testing performed at [address] [address] ABSOLUTE NEUTROPHIL COUNT 8.8 x10 High 1.0-7.0 [facility] Comment on above: Performed By: #### A CBC ####Testing performed at [address] [address] Basophils/100 WBC (Bld) 0.6 % Normal 0.0-2.0 [facility] Comment on above: Performed By: #### A CBC ####Testing performed at [address] [address] DTYPE AUTO DIFF Normal [facility] Comment on above: Performed By: #### A CBC ####Testing performed at [address] [address] Eosinophils/100 WBC (Bld) 0.9 % Normal 0.0-11.0 [facility] Comment on above: Performed By: #### A CBC ####Testing performed at [address] [address] Lymphocytes #/vol (Bld) 2.50 X10 Normal [facility] Comment on above: Performed By: #### A CBC ####Testing performed at [address] [address] Lymphocytes/100 WBC (Bld) 20.2 % Normal 20.0-55.0 [facility] Comment on above: Performed By: #### A CBC ####Testing performed at [address] [address] Monocytes #/vol (Bld) 0.8 X10 Normal [facility] Comment on above: Performed By: #### A CBC ####Testing performed at [address] [address] Monocytes/100 WBC (Bld) 6.8 % Normal 0.0-10.0 [facility] Comment on above: Performed By: #### A CBC ####Testing performed at [address] [address] Neutrophils/100 WBC (Bld) 71.5 % Normal 37.0-75.0 [facility] Comment on above: Performed By: #### A CBC ####Testing performed at [address] [address] Erythrocyte distribution width Ratio (RBC) 16.5 % High 11.5-14.5 [facility] Comment on above: Performed By: #### A CBC ####Testing performed at [address] [address] Hematocrit Volume Fraction (Bld) 35.0 % Low 36.0-48.0 [facility] Comment on above: Performed By: #### A CBC ####Testing performed at [address] [address] Hemoglobin mass conc (Bld) 11.5 g/dL Low 12.0-16.0 [facility] Comment on above: Performed By: #### A CBC ####Testing performed at [address] [place] [address] MCH Entitic mass (RBC) 25.4 pg Low 26.0-35.0 [facility] Comment on above: Performed By: #### A CBC ####Testing performed at [address] [address] MCHC mass conc (RBC) 32.7 g/dL Normal 27.0-37.0 [facility] Comment on above: Performed By: #### A CBC ####[place] [address] MCV Entitic volume (RBC) 77.6 fL Low 80.0-100.0 [facility] Comment on above: Performed By: #### A CBC ####[place] [address] Platelet mean volume Entitic volume (Bld) 7.9 fL Normal 7.4-11.0 [facility] Comment on above: Performed By: #### A CBC ####[place] [address] Platelets #/vol (Bld) 368 /cmm Normal 130.0-400.0 [facility] Comment on above: Performed By: #### A CBC ####[place] [address] RBC #/vol (Bld) 4.51 /cmm Normal 4.0-5.4 [facility] Comment on above: Performed By: #### A CBC ####[place] [address] WBC #/vol (Bld) 12.3 /cmm High 3.6-11.0 [facility] Comment on above: Performed By: #### A CBC ####[place] [address] CMP FASTINGon 05-19-2018 A:G RATIO 1.2 RATIO Low 1.3-2.2 [facility] Albumin mass conc 4.1 G/dl Normal 3.5-5.0 [facility] ALP enzyme act/vol 124 U/L Normal 38-126 [facility] ALT enzyme act/vol 62 U/L High 9-52 [facility] AST enzyme act/vol 35 U/L Normal 14-36 [facility] Bilirubin mass conc 0.5 mg/dL Normal 0.2-1.3 [facility] Calcium mass conc 9.5 mg/dL Normal 8.4-10.2 [facility] Chloride molar conc 106 mmol/L Normal 98-107 [facility] CO2 molar conc 25 mmol/L Normal 22-30 [facility] Creatinine mass conc 0.9 mg/dL Normal 0.7-1.2 [facility] EST. GFR, >60 Normal [facility] EST. GFR,Non >60 Normal [facility] GFR/1.73 sq M predicted among non-blacks MDRD vol rate/area (S/P/Bld) Average GFR for 20-29 years old = 116. Normal [facility] Comment on above: Result Comment: [employer] Analyst frantz Kidney disease, GFR = <60. Kidney failure, GFR = <15. The GFR estimate is not adjusted for extreme body surface area or acute process, nor has it been validated for women or ethnic groups other than and . Glucose mass conc 108 mg/dL High 70-100 [facility] Comment on above: Result Comment: NORMAL <100 mg/dL PREDIABETES 101-126 mg/dL DIABETES 126 mg/dL or higher Potassium molar conc 3.5 mmol/L Normal 3.5-5.1 [facility] Protein mass conc 7.5 g/dL Normal 6.3-8.2 [facility] Sodium molar conc 143 mmol/L Normal 137-145 [facility] Urea nitrogen mass conc 9 mg/dL Normal 7-20 [facility] LIPASE,SERUMon 05-19-2018 LIPASE,SERUM 51 U/L Normal 23-300 [facility] URINE HCG QUALon 05-19-2018 HCG.beta subunit ( test) Ql (U) Negative Normal [facility] URINE MACROSCOPICon 05-19-20 18 Bilirubin Ql (U) Negative Normal NEGATIVE [facility] Clarity Nom (U) CLEAR Normal CLEAR [facility] Color Nom (U) YELLOW Normal YELLOW [facility] Glucose Ql (U) Negative Normal NEGATIVE [facility] pH (U) 6.0 [pH] Normal 5.0-7.0 [facility] Protein mass conc (U) TRACE Abnormal NEGATIVE [facility] URINE HEMOGLOBIN Negative Normal NEGATIVE [facility] URINE KETONE Negative Normal NEGATIVE [facility] URINE LEUKOTEST Negative Normal NEGATIVE [facility] URINE NITRATES Negative Normal NEGATIVE [facility] URINE SPEC GRAVITY >1.030 High 1.010-1.025 [facility] Urobilinogen Qn (U) 0.2 mg/dl Normal 0.2-1.0 [facility] URINE MICROSCOPICon 05-19-20 18 Bacteria LM.HPF #/area (Urine sed) TRACE Abnormal NEGATIVE [facility] Casts LM.LPF #/area (Urine sed) NONE Normal NONE [facility] CRYSTAL OCCASIONAL Abnormal NONE [facility] Comment on above: Result Comment: CA O XALATE CRYSTALS Epithelial cells LM.HPF #/area (Urine sed) 20 TO 30 Normal [facility] Mucus Ql (Urine sed) Negative Normal NEGATIVE [facility] RBC #/vol (U) Negative Normal NEGATIVE [facility] URINE COMMENT CULTURE CRITERIA NOT MET, NO CULTURE PERFORMED. Normal [facility] WBC #/vol (U) Negative Normal NEGATIVE [facility] XR ABDOMEN 1 VIEWon 05-19-20 18 XR ABDOMEN 1 VIEW XR ABDOMEN 1 VIEW HISTORY: Abdominal pain. COMPARISON: CT abdomen/pelvis from October 26, 2017. FINDINGS: Nonobstructive bowel gas pattern. No gross pneumoperitoneum. Osseous structures are intact. Intrauterine device is noted. IMPRESSION: Nonobstructive bowel gas pattern. Normal [facility] ACETAMINOPHENon 04-25-2018 Acetaminophen mass conc <10.0 Low 10-30 [facility] ALCOHOLon 04-25-2018 Ethanol mass conc mg/dL Normal 0-10 [facility] Comment on above: Result Comment: INTOXICATION >80 MG/DL FATAL >400 MG/DL CBCon 04-25-2018 ABSOLUTE BAS 0.1 X10 Normal [facility] ABSOLUTE EOS 0.10 X10 Normal [facility] ABSOLUTE NEUTROPHIL COUNT 6.5 x10 Normal 1.0-7.0 [facility] Basophils/100 WBC (Bld) 0.6 % Normal 0.0-2.0 [facility] DTYPE AUTO DIFF Normal [facility] Eosinophils/100 WBC (Bld) 1.1 % Normal 0.0-11.0 [facility] Lymphocytes #/vol (Bld) 2.00 X10 Normal [facility] Lymphocytes/100 WBC (Bld) 22.0 % Normal 20.0-55.0 [facility] Monocytes #/vol (Bld) 0.4 X10 Normal [facility] Monocytes/100 WBC (Bld) 4.5 % Normal 0.0-10.0 [facility] Neutrophils/100 WBC (Bld) 71.8 % Normal 37.0-75.0 [facility] Erythrocyte distribution width Ratio (RBC) 15.6 % High 11.5-14.5 [facility] Hematocrit Volume Fraction (Bld) 37.2 % Normal 36.0-48.0 [facility] Hemoglobin mass conc (Bld) 12.0 g/dL Normal 12.0-16.0 [facility] MCH Entitic mass (RBC) 25.3 pg Low 26.0-35.0 [facility] MCHC mass conc (RBC) 32.3 g/dL Normal 27.0-37.0 [facility] MCV Entitic volume (RBC) 78.2 fL Low 80.0-100.0 [facility] Platelet mean volume Entitic volume (Bld) 7.8 fL Normal 7.4-11.0 [facility] Platelets #/vol (Bld) 344 /cmm Normal 130.0-400.0 [facility] RBC #/vol (Bld) 4.76 /cmm Normal 4.0-5.4 [facility] WBC #/vol (Bld) 9.1 /cmm Normal 3.6-11.0 [facility] CHEM 7 FASTINGon 04-25-2018 Chloride molar conc 108 mmol/L High 98-107 [facility] CO2 molar conc 21 mmol/L Low 22-30 [facility] Creatinine mass conc 0.8 mg/dL Normal 0.7-1.2 [facility] EST. GFR, >60 Normal [facility] EST. GFR,Non >60 Normal [facility] GFR/1.73 sq M predicted among non-blacks MDRD vol rate/area (S/P/Bld) Average GFR for 20-29 years old = 116. Normal [facility] Comment on above: Result Comment: [employer] frantz Kidney disease, GFR = <60. Kidney failure, GFR = <15. The GFR estimate is not adjusted for extreme body surface area or acute process, nor has it been validated for women or ethnic groups other than and . Glucose mass conc 98 mg/dL Normal 70-100 [facility] Comment on above: Result Comment: NORMAL <100 mg/dL PREDIABETES 101-126 mg/dL DIABETES 126 mg/dL or higher Potassium molar conc 3.8 mmol/L Normal 3.5-5.1 [facility] Sodium molar conc 140 mmol/L Normal 137-145 [facility] Urea nitrogen mass conc 7 mg/dL Normal 7-20 [facility] LIVER PANELon 04-25-2018 Albumin mass conc 4.4 g/dL Normal 2.9-5.3 [facility] ALP enzyme act/vol 116 U/L Normal 38-126 [facility] ALT enzyme act/vol 30 U/L Normal 9-52 [facility] AST enzyme act/vol 37 U/L High 14-36 [facility] Bilirubin mass conc 1.0 mg/dL Normal 0.2-1.3 [facility] Bilirubin.direct mass conc 0.3 mg/dL Normal 0-0.4 [facility] Protein mass conc 7.8 g/dL Normal 6.3-8.2 [facility] [facility] RAPID TOX SCREEN,URINEon AMPHETAMINE Negative Normal NEGATIVE [facility] Comment on above: Result Comment: <500 ng/ml CUTOFF BARBITURATES Negative Normal NEGATIVE [facility] Comment on above: Result Comment: <200 ng/ml CUTOFF Benzodiazepines Ql (U) Negative Normal NEGATIVE [facility] Comment on above: Result Comment: <150 ng/ml CUTOFF BUPRENORPHINE Negative Normal NEGATIVE [facility] Comment on above: Result Comment: <10 ng/ml CUTOFF Cannabinoids Screen Ql (U) Positive Abnormal NEGATIVE [facility] Comment on above: Result Comment: <50 ng/ml CUTOFF *Unconfirmed Screening Result* Unconfirmed screening results are to be used only for medical treatment purposes. Cocaine Ql (U) Negative Normal NEGATIVE [facility] Comment on above: Result Comment: <150 ng/ml CUTOFF Methadone Ql (U) Negative Normal NEGATIVE [facility] Comment on above: Result Comment: <200 ng/ml CUTOFF METHAMPHETAMINE Negative Normal NEGATIVE [facility] Comment on above: Result Comment: <500 ng/ml CUTOFF Opiates Ql (U) Negative Normal NEGATIVE [facility] Comment on above: Result Comment: <100 ng/ml CUTOFF OXYCODONE Negative Normal NEGATIVE [facility] Comment on above: Result Comment: <100 ng/ml CUTOFF Phencyclidine Ql (U) Negative Normal NEGATIVE [facility] Comment on above: Result Comment: <25 ng/ml CUTOFF Protein mass conc (U) Negative Normal NEGATIVE [facility] Comment on above: Result Comment: <300 ng/ml CUTOFF Tricyclic antidepressants Screen Ql (U) Negative Normal NEGATIVE [facility] Comment on above: Result Comment: <300 ng/ml CUTOFF SALICYLATESon 04-25-2018 SALICYLATES <1.0 Normal 0-20 [facility] TSHon 04-25-2018 Thyrotropin Qn 0.480 uIU/ML Normal 0.46-4.68 [facility] URINE MACROSCOPICon 04-25-20 18 Bilirubin Ql (U) Negative Normal NEGATIVE [facility] Clarity Nom (U) CLEAR Normal CLEAR [facility] Color Nom (U) YELLOW Normal YELLOW [facility] Glucose Ql (U) Negative Normal NEGATIVE [facility] pH (U) 6.5 [pH] Normal 5.0-7.0 [facility] Protein mass conc (U) Negative Normal NEGATIVE [facility] URINE HEMOGLOBIN LARGE Abnormal NEGATIVE [facility] URINE KETONE Negative Normal NEGATIVE [facility] URINE LEUKOTEST MODERATE Abnormal NEGATIVE [facility] URINE NITRATES Negative Normal NEGATIVE [facility] URINE SPEC GRAVITY 1.010 Normal 1.010-1.025 [facility] Urobilinogen Qn (U) 0.2 mg/dl Normal 0.2-1.0 [facility] URINE MICROSCOPICon 04-25-20 18 Bacteria LM.HPF #/area (Urine sed) 2+ Abnormal NEGATIVE [facility] Casts LM.LPF #/area (Urine sed) NONE Normal NONE [facility] CRYSTAL RARE Abnormal NONE [facility] Comment on above: Result Comment: CA O XALATE CRYSTALS Epithelial cells LM.HPF #/area (Urine sed) 10 TO 20 Normal [facility] Mucus Ql (Urine sed) TRACE Abnormal NEGATIVE [facility] RBC #/vol (U) 5 TO 10 Normal NEGATIVE [facility] URINE COMMENT POSSIBLY CONTAMINATE D SPECIMEN, CULTURE MUST BE ORDERED SEPARATELY IF DEEMED NECESSARY. Normal [facility] WBC #/vol (U) 1 TO 5 Normal NEGATIVE [facility] Glucose, POCon 02-27-2018 Glucose mass conc 145 mg/dL High 70-105 [facility] Comment on above: Performed By: #### G LUX ####Unless otherwise noted, all testing performed by [address] [id number]: [id number] Director: Geronimo Ibrahim M.D. Glucose mass conc 218 mg/dL High 70-105 [facility] Comment on above: Performed By: #### G LUX ####Unless otherwise noted, all testing performed by [address] [id number]: [id number] Director: Geronimo Ibrahim M.D. Basic Metabolic Profon 02-16 Potassium molar conc 2.9 mmol/L Critically low 3.7-5.[address] [facility] Comment on above: Performed By: #### C DP #### [address] [address] #### TROPI, BMP #### [address] [place] [address] (cont.) Normal [facility] Comment on above: Result Comment: Aver age GFR for 20-29 years old: 116 mL/min/1.73sq m Chronic Kidney Disease: <60 mL/min/1.73sq m Kidney failure: <15 mL/min/1.73sq m eGFR calculated using average adult body mass. Additional eGFR calculator available at: http://www.ZOZI/multiple_crcl_2011.htm Performed By: #### C DP #### [address] [address] #### TROPI, BMP #### [address] [place] [address] Anion gap molar conc 17 mmol/L Normal 9-17 [facility] Comment on above: Performed By: #### C DP #### [address] [address] #### TROPI, BMP #### [address] [place] [address] BUN/CRE Ratio 5 Low 9-20 [facility] Comment on above: Performed By: #### C DP #### [address] [address] #### TROPI, BMP #### [address] [place] [address] Calcium mass conc 8.9 mg/dL Normal 8.6-10.4 [facility] Comment on above: Performed By: #### C DP #### [address] [address] #### TROPI, BMP #### [address] [place] [address] Chloride molar conc 102 mmol/L Normal 98-[address] [facility] Comment on above: Performed By: #### C DP #### [address] [address] #### TROPI, BMP #### [address] [place] [address] CO2 molar conc 18 mmol/L Low 20-31 [facility] Comment on above: Performed By: #### C DP #### [address] [address] #### TROPI, BMP #### [address] [place] [address] Creatinine mass conc 0.43 mg/dL Low 0.50-0.90 [facility] Comment on above: Performed By: #### C DP #### [address] [address] #### TROPI, BMP #### [address] [place] [address] GFR, Amer >60 Normal >60 [facility] Comment on above: Performed By: #### C DP #### [address] [address] #### TROPI, BMP #### [address] [place] [address] GFR,non Amer >60 Normal >60 [facility] Comment on above: Performed By: #### C DP #### [address] [address] #### TROPI, BMP #### [address] [place] [address] Glucose mass conc 146 mg/dL High 70-99 [facility] Comment on above: Performed By: #### C DP #### [address] [address] #### TROPI, BMP #### [address] [place] [address] Sodium molar conc 137 mmol/L Normal 135-144 [facility] Comment on above: Performed By: #### C DP #### [address] [address] #### TROPI, BMP #### [address] [place] [address] Staging: Normal [facility] Comment on above: Result Comment: Stag e 1: Some kidney damage normal GFR Stage 2: Mild kidney damage GFR 60-89 Stage 3: Moderate kidney damage GFR 30-59 Stage 4: Severe kidney damage GFR 15-29 Stage 5: Severe kidney damage GFR <15 ESRD - chronic treatment by dialysis or transplant Performed at [address] [place] [address] Performed By: #### C DP #### [address] [address] #### TROPI, BMP #### [address] [place] [address] Urea nitrogen mass conc 2 mg/dL Low 6-[address] [facility] Comment on above: Performed By: #### C DP #### [address] [address] #### TROPI, BMP #### [address] [place] [address] CBC with Diffon 02-16-2018 Abs. Basophil <0.03 Normal 0.00-0.20 [facility] Comment on above: Performed By: #### C DP #### [address] [address] #### TROPI, BMP #### [address] [place] [address] Abs.Imm.Granulocyte 0.08 k/uL Normal 0.00-0.[address] [facility] Comment on above: Result Comment: Perf ormed at [address] [address] Performed By: #### C DP #### [address] [address] #### TROPI, BMP #### [address] [place] [address] Abs.Neutrophil (Seg) 8.67 k/uL High 1.50-8.10 [facility] Comment on above: Performed By: #### C DP #### [address] [address] #### TROPI, BMP #### [address] [place] [id number] Basophils/100 WBC (Bld) 0 % Normal 0-[address] [facility] Comment on above: Performed By: #### C DP #### [address] [address] #### TROPI, BMP #### [address] [place] [address] Eosinophils #/vol (Bld) 10*3/uL Normal 0.00-0.[address] [facility] Comment on above: Performed By: #### C DP #### [address] [address] #### TROPI, BMP #### [address] [place] [address] Eosinophils/100 WBC (Bld) 0 % Low 1-[address] [facility] Comment on above: Performed By: #### C DP #### [address] [address] #### TROPI, BMP #### [address] [place] [address] Erythrocyte distribution width Ratio (RBC) 15.2 % High 11.8-14.[address] [facility] Comment on above: Performed By: #### C DP #### [address] [address] #### TROPI, BMP #### [address] [place] [address] Hematocrit Volume Fraction (Bld) 33.3 % Low 36.3-47.[address] [facility] Comment on above: Performed By: #### C DP #### [address] [address] #### TROPI, BMP #### [address] [place] [address] Hemoglobin mass conc (Bld) 10.9 g/dL Low 11.9-15.[address] [facility] Comment on above: Performed By: #### C DP #### [address] [address] #### TROPI, BMP #### [address] [place] [address] Immature granulocytes #/vol (Bld) 1 % High [address] [facility] Comment on above: Performed By: #### C DP #### [address] [address] #### TROPI, BMP #### [address] [place] [address] Lymphocytes #/vol (Bld) 1.82 10*3/uL Normal 1.10-3.[address] [facility] Comment on above: Performed By: #### C DP #### [address] [address] #### TROPI, BMP #### [address] [place] [address] Lymphocytes/100 WBC (Bld) 16 % Low 24-[address] [facility] Comment on above: Performed By: #### C DP #### [address] [address] #### TROPI, BMP #### [address] [place] [address] MCH Entitic mass (RBC) 27.2 pg Normal 25.2-33.[address] [facility] Comment on above: Performed By: #### C DP #### [address] [address] #### TROPI, BMP #### [address] [place] [address] MCHC mass conc (RBC) 32.7 g/dL Normal 28.4-34.8 [facility] Comment on above: Performed By: #### C DP #### [address] [address] #### TROPI, BMP #### [address] [place] [address] MCV Entitic volume (RBC) 83.0 fL Normal 82.6-102.[address] [facility] Comment on above: Performed By: #### C DP #### [address] [address] #### TROPI, BMP #### [address] [place] [address] Monocytes #/vol (Bld) 0.55 10*3/uL Normal 0.10-1.20 [facility] Comment on above: Performed By: #### C DP #### [address] [address] #### TROPI, BMP #### [address] [place] [address] Monocytes/100 WBC (Bld) 5 % Normal 3-[address] [facility] Comment on above: Performed By: #### C DP #### [address] [address] #### TROPI, BMP #### [address] [place] [address] Neutrophil (Seg) 78 % High 36-65 [facility] Comment on above: Performed By: #### C DP #### [address] [address] #### TROPI, BMP #### [address] [place] [address] NRBC Automated 0.0 per 100 WBC Normal 0.[address] [facility] Comment on above: Performed By: #### C DP #### [address] [address] #### TROPI, BMP #### [address] [place] [address] Platelet mean volume Entitic volume (Bld) 10.2 fL Normal 8.1-13.5 [facility] Comment on above: Performed By: #### C DP #### [address] [address] #### TROPI, BMP #### [address] [place] [address] Platelets #/vol (Bld) 236 10*3/uL Normal 138-453 [facility] Comment on above: Performed By: #### C DP #### [address] [address] #### TROPI, BMP #### [address] [place] [address] RBC #/vol (Bld) 4.01 10*6/uL Normal 3.95-5.11 [facility] Comment on above: Performed By: #### C DP #### [address] [address] #### TROPI, BMP #### [address] [place] [address] WBC #/vol (Bld) 11.1 10*3/uL Normal 3.5-11.3 [facility] Comment on above: Performed By: #### C DP #### [address] [address] #### TROPI, BMP #### [address] [place] [address] Auto Diff Performed NOT REPORTED Normal [facility] Comment on above: Performed By: #### C DP #### [address] [address] #### TROPI, BMP #### [address] [place] [address] Platelets #/vol (Bld) NOT REPORTED Normal [facility] Comment on above: Performed By: #### C DP #### [address] [address] #### TROPI, BMP #### [address] [place] [address] RBC morphology finding Nom (Bld) NOT REPORTED Normal [facility] Comment on above: Performed By: #### C DP #### [address] [address] #### TROPI, BMP #### [address] [place] [address] WBC Morphology NOT REPORTED Normal [facility] Comment on above: Performed By: #### C DP #### [address] [address] #### TROPI, BMP #### [address] [place] [address] Troponinon 02-16-2018 Troponin I.cardiac mass conc ng/mL Normal <0.[address] [facility] Comment on above: Result Comment: Trop onin T results cannot be compared to Troponin-I results. Performed By: #### C DP #### [address] [address] #### TROPI, BMP #### [address] [place] [address] Troponin I.cardiac mass conc Normal [facility] Comment on above: Result Comment: Refe rence Range: <0.03 Within reference range. 0.03-0.09 Possible myocardial damage. Repeat at appropriate intervals to rule out chronic elevation. >= 0.10 Indicative of myocardial damage. Patients with high levels of Biotin oral intake (i.e >5mg/day) may have falsely decreased Troponin T levels. Samples collected within 8 hours of biotin intake may require additional information for diagnosis. Performed at [address] [place] [address] Performed By: #### C DP #### [address] [address] #### TROPI, BMP #### [address] [place], [place] [id number] CBCon 02-15-2018 ABSOLUTE BAS 0.0 X10 Normal [facility] Comment on above: Result Comment: Test ing performed at [place] [address] Performed By: #### A CBC, CHEM7F, BHCG2 ####[place] [address] ABSOLUTE EOS 0.10 X10 Normal [facility] Comment on above: Performed By: #### A CBC, CHEM7F, BHCG2 ####[place] [address] ABSOLUTE NEUTROPHIL COUNT 10.8 x10 High 1.0-7.0 [facility] Comment on above: Performed By: #### A CBC, CHEM7F, BHCG2 ####[place] [address] Basophils/100 WBC Auto (Bld) 0.3 % Normal 0.0-2.0 [facility] Comment on above: Performed By: #### A CBC, CHEM7F, BHCG2 ####[place] [address] DTYPE AUTO DIFF Normal [facility] Comment on above: Performed By: #### A CBC, CHEM7F, BHCG2 ####[place] [address] Eosinophils/100 WBC Auto (Bld) 1.1 % Normal 0.0-11.0 [facility] Comment on above: Performed By: #### A CBC, CHEM7F, BHCG2 ####[place] [address] Lymphocytes Auto #/vol (Bld) 1.70 X10 Normal [facility] Comment on above: Performed By: #### A CBC, CHEM7F, BHCG2 ####[place] [address] Lymphocytes/100 WBC Auto (Bld) 12.7 % Low 20.0-55.0 [facility] Comment on above: Performed By: #### A CBC, CHEM7F, BHCG2 ####[place] [address] Monocytes Auto #/vol (Bld) 0.6 X10 Normal [facility] Comment on above: Performed By: #### A CBC, CHEM7F, BHCG2 ####[place] [address] Monocytes/100 WBC Auto (Bld) 4.8 % Normal 0.0-10.0 [facility] Comment on above: Performed By: #### A CBC, CHEM7F, BHCG2 ####[place] [address] Neutrophils/100 WBC Auto (Bld) 81.1 % High 37.0-75.0 [facility] Comment on above: Performed By: #### A CBC, CHEM7F, BHCG2 ####[place] [address] Erythrocyte distribution width Auto Ratio (RBC) 16.8 % High 11.5-14.5 [facility] Comment on above: Performed By: #### A CBC, CHEM7F, BHCG2 ####[place] [address] Hematocrit Auto Volume Fraction (Bld) 36.2 % Normal 36.0-48.0 [facility] Comment on above: Performed By: #### A CBC, CHEM7F, BHCG2 ####[place] [address] Hemoglobin mass conc (Bld) 12.0 g/dL Normal 12.0-16.0 [facility] Comment on above: Performed By: #### A CBC, CHEM7F, BHCG2 ####[place] [address] MCH Auto Entitic mass (RBC) 27.8 pg Normal 26.0-35.0 [facility] Comment on above: Performed By: #### A CBC, CHEM7F, BHCG2 ####[place] [address] MCHC Auto mass conc (RBC) 33.2 g/dL Normal 27.0-37.0 [facility] Comment on above: Performed By: #### A CBC, CHEM7F, BHCG2 ####[place] [address] MCV Auto Entitic volume (RBC) 83.7 fL Normal 80.0-100.0 [facility] Comment on above: Performed By: #### A CBC, CHEM7F, BHCG2 ####[place] [address] Platelet mean volume Auto Entitic volume (Bld) 8.3 fL Normal 7.4-11.0 [facility] Comment on above: Performed By: #### A CBC, CHEM7F, BHCG2 ####[place] [address] Platelets Auto #/vol (Bld) 245 /cmm Normal 130.0-400.0 [facility] Comment on above: Performed By: #### A CBC, CHEM7F, BHCG2 ####[place] [address] RBC Auto #/vol (Bld) 4.33 /cmm Normal 4.0-5.4 [facility] Comment on above: Performed By: #### A CBC, CHEM7F, BHCG2 ####[place] [address] WBC Auto #/vol (Bld) 13.4 /cmm High 3.6-11.0 [facility] Comment on above: Performed By: #### A CBC, CHEM7F, BHCG2 ####[place] [address] CMP FASTINGon 02-15-2018 A:G RATIO 1.2 RATIO Low 1.3-2.2 [facility] Comment on above: Performed By: #### A CBC, CHEM7F, BHCG2 ####[place] [address] Albumin mass conc 4.1 G/dl Normal 3.5-5.0 [facility] Comment on above: Performed By: #### A CBC, CHEM7F, BHCG2 ####[place] [address] ALP enzyme act/vol 105 U/L Normal 38-126 [facility] Comment on above: Performed By: #### A CBC, CHEM7F, BHCG2 ####[place] [address] ALT enzyme act/vol 11 U/L Normal 9-52 [facility] Comment on above: Performed By: #### A CBC, CHEM7F, BHCG2 ####[place] [address] AST enzyme act/vol 16 U/L Normal 14-36 [facility] Comment on above: Performed By: #### A CBC, CHEM7F, BHCG2 ####[place] [address] Bilirubin mass conc 0.8 mg/dL Normal 0.2-1.3 [facility] Comment on above: Performed By: #### A CBC, CHEM7F, BHCG2 ####[place] [address] Calcium mass conc 8.9 mg/dL Normal 8.4-10.2 [facility] Comment on above: Performed By: #### A CBC, CHEM7F, BHCG2 ####[place] [address] Chloride molar conc 105 mmol/L Normal 98-107 [facility] Comment on above: Performed By: #### A CBC, CHEM7F, BHCG2 ####[place] [address] CO2 molar conc 19 mmol/L Low 22-30 [facility] Comment on above: Performed By: #### A CBC, CHEM7F, BHCG2 ####[place] [address] Creatinine mass conc 0.5 mg/dL Low 0.7-1.2 [facility] Comment on above: Performed By: #### A CBC, CHEM7F, BHCG2 ####[place] [address] EST. GFR, >60 Normal [facility] Comment on above: Performed By: #### A CBC, CHEM7F, BHCG2 ####[place] [address] EST. GFR,Non >60 Normal [facility] Comment on above: Performed By: #### A CBC, CHEM7F, BHCG2 ####[place] [address] GFR/1.73 sq M predicted among non-blacks MDRD vol rate/area (S/P/Bld) Average GFR for 20-29 years old = 116. Normal [facility] Comment on above: Result Comment: Lead Business Systems Analyst frantz Kidney disease, GFR = <60.Kidney failure, GFR = <15.The GFR estimate is not adjusted for extreme body surface area or acute process, nor has it been validated for women or ethnic groups other than and .Testing performed at [place] [address] Performed By: #### A CBC, CHEM7F, BHCG2 ####[place] [address] Glucose mass conc 133 mg/dL High 70-100 [facility] Comment on above: Result Comment: NORM AL <100 mg/dLPREDIABETES 101-126 mg/dLDIABETES 126 mg/dL or higher Performed By: #### A CBC, CHEM7F, BHCG2 ####[place] [address] Potassium molar conc 3.3 mmol/L Low 3.5-5.1 [facility] Comment on above: Performed By: #### A CBC, CHEM7F, BHCG2 ####[place] [address] Protein mass conc 7.5 g/dL Normal 6.3-8.2 [facility] Comment on above: Performed By: #### A CBC, CHEM7F, BHCG2 ####[place] [address] Sodium molar conc 139 mmol/L Normal 137-145 [facility] Comment on above: Performed By: #### A CBC, CHEM7F, BHCG2 ####[place] [address] Urea nitrogen mass conc (Bld) 3 mg/dL Low 7-20 [facility] Comment on above: Performed By: #### A CBC, CHEM7F, BHCG2 ####[place] [address] MAGNESIUMon 02-15-2018 Magnesium mass conc 1.6 mg/dL Normal 1.6-2.3 [facility] Comment on above: Result Comment: Test ing performed at [place] [address] Performed By: #### A CBC, CHEM7F, BHCG2 ####[place] [address] CHLAM/GC AMPLIFon 01-29-2018 CHLAMYDIA NUC. AMP Negative Normal Negative [facility] GONOCOCCUS NUC. AMP Negative Normal Negative [facility] Comment on above: Result Comment: [facility] FIBRONECTINon 01-28-20 18 FIBRONECTIN Negative Normal NEGATIVE [facility] Comment on above: Result Comment: NO F ETAL FIBRONECTIN DETECTED.Testing performed at [place] [address] Performed By: #### A CBC, CHEM7F, BHCG2 ####[place] [address] RAPID TOX SCREEN,URINE WITH REFLEXon 01-27-2018 AMPHETAMINE Negative Normal NEGATIVE [facility] Comment on above: Result Comment: <500 ng/ml CUTOFF Performed By: #### A CBC, CHEM7F, BHCG2 ####[place] [address] BARBITURATES Negative Normal NEGATIVE [facility] Comment on above: Result Comment: <200 ng/ml CUTOFF Performed By: #### A CBC, CHEM7F, BHCG2 ####[place] [address] BENZODIAZEPINES Positive Abnormal NEGATIVE [facility] Comment on above: Result Comment: <150 ng/ml CUTOFF*Unconfirmed Screening Result* Unconfirmed screening results are to be used only for medical treatment purposes. Performed By: #### A CBC, CHEM7F, BHCG2 ####[place] [address] BUPRENORPHINE Negative Normal NEGATIVE [facility] Comment on above: Result Comment: <10 ng/ml CUTOFFTesting performed at [place] [address] Performed By: #### A CBC, CHEM7F, BHCG2 ####[place] [address] CANNABINOIDS Positive Abnormal NEGATIVE [facility] Comment on above: Result Comment: <50 ng/ml CUTOFF*Unconfirmed Screening Result* Unconfirmed screening results are to be used only for medical treatment purposes. Performed By: #### A CBC, CHEM7F, BHCG2 ####[place] [address] COCAINE Negative Normal NEGATIVE [facility] Comment on above: Result Comment: <150 ng/ml CUTOFF Performed By: #### A CBC, CHEM7F, BHCG2 ####[place] [address] METHADONE Negative Normal NEGATIVE [facility] Comment on above: Result Comment: <200 ng/ml CUTOFF Performed By: #### A CBC, CHEM7F, BHCG2 ####Testing performed at [address] [place] [address] METHAMPHETAMINE Negative Normal NEGATIVE [facility] Comment on above: Result Comment: <500 ng/ml CUTOFF Performed By: #### A CBC, CHEM7F, BHCG2 ####[place] [address] OPIATES Negative Normal NEGATIVE [facility] Comment on above: Result Comment: <100 ng/ml CUTOFF Performed By: #### A CBC, CHEM7F, BHCG2 ####[place] [address] OXYCODONE Negative Normal NEGATIVE [facility] Comment on above: Result Comment: <100 ng/ml CUTOFF Performed By: #### A CBC, CHEM7F, BHCG2 ####[place] [address] PHENCYCLIDINE Negative Normal NEGATIVE [facility] Comment on above: Result Comment: <25 ng/ml CUTOFF Performed By: #### A CBC, CHEM7F, BHCG2 ####[place] [address] Protein mass conc Negative Normal NEGATIVE [facility] Comment on above: Result Comment: <300 ng/ml CUTOFF Performed By: #### A CBC, CHEM7F, BHCG2 ####[place] [address] TRICYCLIC ANTIDEPRESSANTS Negative Normal NEGATIVE [facility] Comment on above: Result Comment: <300 ng/ml CUTOFF Performed By: #### A CBC, CHEM7F, BHCG2 ####[place] [address] STREP SCREEN GRP Bon 01-27- 018 STREP SCREEN GRP B SPECIMEN DESCRIPTION VAGINAL/RECTAL CULTURE NO GROUP B BETA STREP ISOLATED * Result Note: Testing performed at [place] [address] * REPORT STATUS 01/29/2018 * Result Note: FINAL * Normal [facility] Comment on above: Performed By: #### A CBC, CHEM7F, BHCG2 ####Testing performed at [address] [address] URINE CULTUREon 01-27-2018 Bacteria identified Cx Nom (U) SPECIMEN DESCRIPTION URINE - OTHERUA DIPSTICK NITRITE NEGATIVE * Result Note: LEUKOCYTE POSITIVE *CULTURE MULTIPLE SPECIES PRESENT;PROBABLE CONTAMINATION. SUGGEST REPEAT SPECIMEN. * Result Note: Testing performed at [place] [address] *REPORT STATUS 01/29/2018 * Result Note: FINAL * Normal [facility] Comment on above: Performed By: #### A CBC, CHEM7F, BHCG2 ####[place] [address] URINE MACROSCOPICon 01-28-20 18 Bilirubin Ql (U) SMALL Abnormal NEGATIVE [facility] Comment on above: Performed By: #### A CBC, CHEM7F, BHCG2 ####[place] [address] Clarity Nom (U) CLEAR Abnormal CLEAR [facility] Comment on above: Performed By: #### A CBC, CHEM7F, BHCG2 ####[place] [address] Color Nom (U) YELLOW Normal YELLOW [facility] Comment on above: Performed By: #### A CBC, CHEM7F, BHCG2 ####[place] [address] Glucose Ql (U) Negative Normal NEGATIVE [facility] Comment on above: Performed By: #### A CBC, CHEM7F, BHCG2 ####[place] [address] pH Test strip (U) 6.0 [pH] Normal 5.0-7.0 [facility] Comment on above: Performed By: #### A CBC, CHEM7F, BHCG2 ####[place] [address] URINE HEMOGLOBIN Negative Normal NEGATIVE [facility] Comment on above: Performed By: #### A CBC, CHEM7F, BHCG2 ####Testing performed at [place] [id number] URINE KETONE TRACE Abnormal NEGATIVE [facility] Comment on above: Performed By: #### A CBC, CHEM7F, BHCG2 ####[place] [address] URINE LEUKOTEST SMALL Abnormal NEGATIVE [facility] Comment on above: Result Comment: Test ing performed at [place] [address] Performed By: #### A CBC, CHEM7F, BHCG2 ####[place] [address] URINE NITRATES Negative Normal NEGATIVE [facility] Comment on above: Performed By: #### A CBC, CHEM7F, BHCG2 ####[place] [address] URINE SPEC GRAVITY >1.030 High 1.010-1.025 [facility] Comment on above: Performed By: #### A CBC, CHEM7F, BHCG2 ####[place] [address] URINE TOTAL PROTEIN 30 mg/dl Abnormal NEGATIVE [facility] Comment on above: Performed By: #### A CBC, CHEM7F, BHCG2 ####[place] [address] Urobilinogen Test strip Qn (U) 1.0 mg/dl Normal 0.2-1.0 [facility] Comment on above: Performed By: #### A CBC, CHEM7F, BHCG2 ####[place] [address] URINE MICROSCOPICon 01-28-20 18 BACTERIA 2+ Abnormal NEGATIVE [facility] Comment on above: Performed By: #### A CBC, CHEM7F, BHCG2 ####[place] [address] CASTS NONE Normal NONE [facility] Comment on above: Performed By: #### A CBC, CHEM7F, BHCG2 ####Testing performed at [place] [id number] CRYSTAL NONE Normal NONE [facility] Comment on above: Performed By: #### A CBC, CHEM7F, BHCG2 ####[place] [address] EPITHELIAL CELLS 5 TO 10 Normal [facility] Comment on above: Performed By: #### A CBC, CHEM7F, BHCG2 ####[place] [address] MUCUS 1+ Abnormal NEGATIVE [facility] Comment on above: Performed By: #### A CBC, CHEM7F, BHCG2 ####[place] [address] RBC Test strip #/vol (U) 1 TO 5 Normal NEGATIVE [facility] Comment on above: Performed By: #### A CBC, CHEM7F, BHCG2 ####[place] [address] URINE COMMENT REFLEX CULTURE PER ESTABLISHED CRITERIA. Normal [facility] Comment on above: Result Comment: Test ing performed at [place] [address] Performed By: #### A CBC, CHEM7F, BHCG2 ####[place] [address] URINE WBC'S 1 TO 5 Normal NEGATIVE [facility] Comment on above: Performed By: #### A CBC, CHEM7F, BHCG2 ####[place] [address] Alcohol, Medicalon 8 Ethanol mass conc Negative Normal [facility] Comment on above: Performed By: #### A LC ####Unless otherwise noted, all testing performed by [place] [address] [address] [place], [place] [id number]: [id number] Director: Geronimo Ibrahim M.D. Drugs of Abuse, Urineon 02-1 3-2018 Amphetamines,Ur None Detected Normal None Detected [facility] Comment on above: Performed By: #### D RUGSCRU ####Unless otherwise noted, all testing performed by [place] [id number]: [id number] Director: Geronimo Ibrahim M.D. Barbiturates,Ur None Detected Normal None Detected [facility] Comment on above: Performed By: #### D RUGSCRU ####Unless otherwise noted, all testing performed by [place] [id number]: [id number] Director: Geronimo Ibrahim M.D. Benzodiazepine,Ur None Detected Normal None Detected [facility] Comment on above: Performed By: #### D RUGSCRU ####Unless otherwise noted, all testing performed by [place] [id number]: [id number] Director: Geronimo Ibrahim M.D. Cannabinoids,Ur Positive Abnormal [facility] Detected [facility] Comment on above: Performed By: #### D RUGSCRU ####Unless otherwise noted, all testing performed by [place] [id number]: [id number] Director: Geronimo Ibrahim M.D. Cocaine,Ur None Detected Normal None Detected [facility] Comment on above: Performed By: #### D RUGSCRU ####Unless otherwise noted, all testing performed by [place] [id number]: [id number] Director: Geronimo Ibrahim M.D. DOA Cutoffs See comment. Normal [facility] Comment on above: Result Comment: Drug s of Abuse, Urine Presumptive Positive Cutoff Concentrations.Amphetamine/Methamphetamine: 1000 ng/mlBarbiturates: 200 ng/mlBenzodiazepines and metabolities: 200 ng/mlCannabinoids: 50 ng/mlCocaine/Benzoylecgonine: 300 ng/mlMethadone:300 ng/mlOpiates: 300 ng/mlOxycodone/Oxymorphone: 100 ng/ml Performed By: #### D RUGSCRU ####Unless otherwise noted, all testing performed by [place] [id number]: [id number] Director: Geronimo Ibrahim M.D. Methadone,Ur None Detected Normal None Detected [facility] Comment on above: Performed By: #### D RUGSCRU ####Unless otherwise noted, all testing performed by [address] [phone]: [id number] Director: Geronimo Ibrahim M.D. Opiates,Ur None Detected Normal None Detected [facility] Comment on above: Performed By: #### D RUGSCRU ####Unless otherwise noted, all testing performed by [address] [id number]: [id number] Director: Geronimo Ibrahim M.D. Oxycodone, Urine None Detected Normal None Detected [facility] Comment on above: Result Comment: THES E DRUGS OF ABUSE TESTS ARE PROVIDED A MEDICAL SCREENING ONLY.POSITIVE RESULTS ARENOT CONFIRMED BY GCMS Performed By: #### D RUGSCRU ####Unless otherwise noted, all testing performed by [place] [id number]: [id number] Director: Geronimo Ibrahim M.D. SENDOUT TESTon 11-15-2017 SENDOUT TEST SENT TO [facility] Comment on above: Result Comment: Test ing performed at [place] [address] Performed By: #### K OHP ####[place] [address] CBCon 10-26-2017 ABSOLUTE BAS 0.0 X10 Normal [facility] Comment on above: Result Comment: Test ing performed at [place] [address] Performed By: #### K OHP ####[place] [address] ABSOLUTE EOS 0.10 X10 [facility] Comment on above: Performed By: #### K OHP ####[place] [address] ABSOLUTE NEUTROPHIL COUNT 6.2 x10 Normal 1.0-7.0 [facility] Comment on above: Performed By: #### K OHP ####[place] [address] Basophils/100 WBC Auto (Bld) 0.5 % Normal 0.0-2.0 [facility] Comment on above: Performed By: #### K OHP ####[place] [address] DTYPE AUTO DIFF Normal [facility] Comment on above: Performed By: #### K OHP ####[place] [address] Eosinophils/100 WBC Auto (Bld) 1.4 % Normal 0.0-11.0 [facility] Comment on above: Performed By: #### K OHP ####[place] [address] Lymphocytes Auto #/vol (Bld) 1.50 X10 [facility] Comment on above: Performed By: #### K OHP ####Testing performed at [address] [address] Lymphocytes/100 WBC Auto (Bld) 17.7 % Low 20.0-55.0 [facility] Comment on above: Performed By: #### K OHP ####Testing performed at [address] [address] Monocytes Auto #/vol (Bld) 0.6 X10 Normal [facility] Comment on above: Performed By: #### K OHP ####Testing performed at [address] [address] Monocytes/100 WBC Auto (Bld) 6.7 % Normal 0.0-10.0 [facility] Comment on above: Performed By: #### K OHP ####Testing performed at [address] [address] Neutrophils/100 WBC Auto (Bld) 73.7 % Normal 37.0-75.0 [facility] Comment on above: Performed By: #### K OHP ####Testing performed at [address] [address] Erythrocyte distribution width Auto Ratio (RBC) 14.6 % High 11.5-14.5 [facility] Comment on above: Performed By: #### K OHP ####Testing performed at [address] [address] Hematocrit Auto Volume Fraction (Bld) 37.3 % Normal 36.0-48.0 [facility] Comment on above: Performed By: #### K OHP ####Testing performed at [address] [address] Hemoglobin mass conc (Bld) 12.4 g/dL Normal 12.0-16.0 [facility] Comment on above: Performed By: #### K OHP ####Testing performed at [address] [address] MCH Auto Entitic mass (RBC) 27.0 pg Normal 26.0-35.0 [facility] Comment on above: Performed By: #### K OHP ####Testing performed at [place] [id number] MCHC Auto mass conc (RBC) 33.4 g/dL Normal 27.0-37.0 [facility] Comment on above: Performed By: #### K OHP ####[place] [address] MCV Auto Entitic volume (RBC) 81.0 fL Normal 80.0-100.0 [facility] Comment on above: Performed By: #### K OHP ####[place] [address] Platelet mean volume Auto Entitic volume (Bld) 8.4 fL Normal 7.4-11.0 [facility] Comment on above: Performed By: #### K OHP ####[place] [address] Platelets Auto #/vol (Bld) 247 /cmm Normal 130.0-400.0 [facility] Comment on above: Performed By: #### K OHP ####[place] [address] RBC Auto #/vol (Bld) 4.60 /cmm Normal 4.0-5.4 [facility] Comment on above: Performed By: #### K OHP ####[place] [address] WBC Auto #/vol (Bld) 8.4 /cmm Normal 3.6-11.0 [facility] Comment on above: Performed By: #### K OHP ####[place] [address] CT ABDOMEN/PELVIS WITHOUT CO NTRASTon 10-26-2017 CT ABDOMEN/PELVIS WITHOUT CONTRAST EXAM: CT ABDOMEN/PELVIS WITHOUT CONTRAST, 10/26/2017CLINICAL STATEMENT: Nausea, vomiting, and diarrhea for one week with severe lower abdominal pain. 9 weeks .COMPARISON: Abdominal CT scan, 09/03/2017. TECHNIQUE: CT examination of the abdomen and pelvis without IV contrast. Coronal and sagittal reformations were performed. Dose reduction techniques were achieved by using automated exposure control and/or adjustment of mA and/or kV according to patient size and/or use of iterative reconstruction technique.FINDINGS: CT ABDOMEN: There is linear fibrotic scarring in the right middle lobe and anterior left lower lobe. The lung bases are otherwise clear.The liver, pancreas, spleen, adrenal glands, kidneys, stomach, and small bowel are grossly unremarkable allowing for the lack of contrast enhancement. The nonenhanced stomach and small bowel are unremarkable.CT PELVIS: A normal appendix is seen on image 107. The pelvic small bowel loops, uterus, ovaries, and urinary bladder are unremarkable. There is a normal volume of gas and stool in the colon.No inflammatory fat stranding, free fluid, loculated fluid or free air is seen in the abdomen or pelvis. No acute osseous abnormality or suspicious bony lesion is seen.IMPRESSION: No urinary tract calculi or acute findings in the abdomen or pelvis. Normal [facility] ESRon 10-26-2017 ESR Velocity (Bld) 60 mm/h High 0-20 [facility] Comment on above: Result Comment: Test ing performed at [place] [address] Performed By: #### K [place] ####Testing performed at [address],QUANTITATIVEon 10-25-20 17 [facility],QUANTITATIVE [address] MIU/ML Normal [facility] Comment on above: Result Comment: [facility] INTERPRETIVE RANGES: NON FEMALE 0-6 MIU/MLMALE ADULT 0-2 MIU/ML0-1 WEEK 6-50 MIU/ML1-2 WEEKS 40-300 MIU/ML2-3 WEEKS 100-1,000 MIU/ML3-4 WEEKS 500-6,000 MIU/ML1-2 MONTHS 5,000-200,000 MIU/ML2-3 MONTHS 10,000-100,000 MIU/ML2ND TRIMESTER 3,000-50,000 MIU/ML3RD TRIMESTER 1,000-50,000 MIU/MLIf an hCG level is inconsistent with, or unsupported by, clinical evidence, results should be confirmed by an alternate hCG method. This method may include the qualitative hCG testing of urine.Testing performed at [place] [address] Performed By: #### K OHP ####[place] [address] BMP FASTINGon 10-25-2017 Anion gap 3 molar conc 12 mmol/L Normal 8-16 [facility] Comment on above: Performed By: #### K OHP ####[place] [address] Calcium mass conc 9.3 mg/dL Normal 8.4-10.2 [facility] Comment on above: Performed By: #### K OHP ####[place] [address] Chloride molar conc 104 mmol/L Normal 98-107 [facility] Comment on above: Performed By: #### K OHP ####[place] [address] CO2 molar conc 20 mmol/L Low 22-30 [facility] Comment on above: Performed By: #### K OHP ####[place] [address] Creatinine mass conc 0.7 mg/dL Normal 0.7-1.2 [facility] Comment on above: Performed By: #### K OHP ####[place] [address] EST. GFR, >60 Normal [facility] Comment on above: Performed By: #### K OHP ####[place] [address] EST. GFR,Non >60 Normal [facility] Comment on above: Performed By: #### K OHP ####[place] [address] GFR/1.73 sq M predicted among non-blacks MDRD vol rate/area (S/P/Bld) Average GFR for 20-29 years old = 116. Normal [facility] Comment on above: Result Comment: Lead Business Systems Analyst frantz Kidney disease, GFR = <60.Kidney failure, GFR = <15.The GFR estimate is not adjusted for extreme body surface area or acute process, nor has it been validated for women or ethnic groups other than and .Testing performed at [place] [address] Performed By: #### K OHP ####[place] [address] Glucose mass conc 101 mg/dL High 70-100 [facility] Comment on above: Result Comment: NORM AL <100 mg/dLPREDIABETES 101-126 mg/dLDIABETES 126 mg/dL or higher Performed By: #### K OHP ####[place] [address] Potassium molar conc 3.5 mmol/L Normal 3.5-5.1 [facility] Comment on above: Performed By: #### K OHP ####[place] [address] Sodium molar conc 136 mmol/L Low 137-145 [facility] Comment on above: Performed By: #### K OHP ####[place] [address] Urea nitrogen mass conc (Bld) 6 mg/dL Low 7-20 [facility] Comment on above: Performed By: #### K OHP ####[place] [address] CBCon 10-25-2017 ABSOLUTE BAS 0.2 X10 Normal [facility] Comment on above: Result Comment: Test ing performed at [place] [address] Performed By: #### K OHP ####[place] [address] ABSOLUTE EOS 0.20 X10 Normal [facility] Comment on above: Performed By: #### K OHP ####[place] [address] ABSOLUTE NEUTROPHIL COUNT 9.6 x10 High 1.0-7.0 [facility] Comment on above: Performed By: #### K OHP ####Testing performed at [address] [address] Basophils/100 WBC Auto (Bld) 1.3 % Normal 0.0-2.0 [facility] Comment on above: Performed By: #### K OHP ####Testing performed at [address] [address] DTYPE AUTO DIFF Normal [facility] Comment on above: Performed By: #### K OHP ####Testing performed at [address] [address] Eosinophils/100 WBC Auto (Bld) 1.6 % Normal 0.0-11.0 [facility] Comment on above: Performed By: #### K OHP ####Testing performed at [address] [address] Lymphocytes Auto #/vol (Bld) 2.50 X10 Normal [facility] Comment on above: Performed By: #### K OHP ####Testing performed at [address] [address] Lymphocytes/100 WBC Auto (Bld) 18.7 % Low 20.0-55.0 [facility] Comment on above: Performed By: #### K OHP ####Testing performed at [address] [address] Monocytes Auto #/vol (Bld) 0.7 X10 Normal [facility] Comment on above: Performed By: #### K OHP ####Testing performed at [address] [address] Monocytes/100 WBC Auto (Bld) 5.3 % Normal 0.0-10.0 [facility] Comment on above: Performed By: #### K OHP ####Testing performed at [address] [address] Neutrophils/100 WBC Auto (Bld) 73.1 % Normal 37.0-75.0 [facility] Comment on above: Performed By: #### K OHP ####[place] [address] Erythrocyte distribution width Auto Ratio (RBC) 14.7 % High 11.5-14.5 [facility] Comment on above: Performed By: #### K OHP ####[place] [address] Hematocrit Auto Volume Fraction (Bld) 39.5 % Normal 36.0-48.0 [facility] Comment on above: Performed By: #### K OHP ####[place] [address] Hemoglobin mass conc (Bld) 13.0 g/dL Normal 12.0-16.0 [facility] Comment on above: Performed By: #### K OHP ####[place] [address] MCH Auto Entitic mass (RBC) 26.7 pg Normal 26.0-35.0 [facility] Comment on above: Performed By: #### K OHP ####[place] [address] MCHC Auto mass conc (RBC) 32.8 g/dL Normal 27.0-37.0 [facility] Comment on above: Performed By: #### K OHP ####[place] [address] MCV Auto Entitic volume (RBC) 81.3 fL Normal 80.0-100.0 [facility] Comment on above: Performed By: #### K OHP ####[place] [address] Platelet mean volume Auto Entitic volume (Bld) 8.3 fL Normal 7.4-11.0 [facility] Comment on above: Result Comment: Test ing performed at [place] [address] Performed By: #### K OHP ####[place] [address] Platelets Auto #/vol (Bld) 289 /cmm Normal 130.0-400.0 [facility] Comment on above: Performed By: #### K OHP ####[place] [address] RBC Auto #/vol (Bld) 4.85 /cmm Normal 4.0-5.4 [facility] Comment on above: Performed By: #### K OHP ####[place] [address] WBC Auto #/vol (Bld) 13.1 /cmm High 3.6-11.0 [facility] Comment on above: Performed By: #### K OHP ####[place] [address] LACTIC ACIDon 10-25-2017 Lactate molar conc 1.5 mmol/L Normal 0.7-2.1 [facility] Comment on above: Result Comment: Test ing performed at [place] [address] Performed By: #### K OHP ####[place] [address] LIVER PANELon 10-25-2017 Albumin mass conc 4.4 g/dL Normal 2.9-5.3 [facility] Comment on above: Performed By: #### K OHP ####[place] [address] ALP enzyme act/vol 74 U/L Normal 38-126 [facility] Comment on above: Performed By: #### K OHP ####[place] [address] ALT enzyme act/vol 27 U/L Normal 9-52 [facility] Comment on above: Result Comment: Test ing performed at [place] [address] Performed By: #### K OHP ####Testing [place] [address] AST enzyme act/vol 14 U/L Normal 14-36 [facility] Comment on above: Performed By: #### K OHP ####[place] [address] Bilirubin mass conc 1.2 mg/dL Normal 0.2-1.3 [facility] Comment on above: Performed By: #### K OHP ####[place] [address] Bilirubin.direct mass conc 0.3 mg/dL Normal 0-0.4 [facility] Comment on above: Performed By: #### K OHP ####[place] [address] Protein mass conc 8.0 g/dL Normal 6.3-8.2 [facility] Comment on above: Performed By: #### K OHP ####[place] [address] RAPID FLU Aon 10-25-2017 INFLUENZA A AG Negative Normal NEGATIVE [facility] Comment on above: Performed By: #### K OHP ####[place] [address] INFLUENZA B AG Negative Normal NEGATIVE [facility] Comment on above: Result Comment: TEST ING PERFORMED BY NAATesting performed at [place] [address] Performed By: #### K OHP ####[place] [address] URINE MACROSCOPICon 10-25-20 17 Bilirubin Ql (U) SMALL Abnormal NEGATIVE [facility] Comment on above: Performed By: #### U MAC, UMIC ####Testing performed at [place] [id number] Clarity Nom (U) SLIGHTLY CLOUDY Abnormal CLEAR [facility] Comment on above: Performed By: #### U MAC, UMIC ####[place] [address] Color Nom (U) YELLOW Normal YELLOW [facility] Comment on above: Performed By: #### U MAC, UMIC ####[place] [address] Glucose Ql (U) Negative Normal NEGATIVE [facility] Comment on above: Performed By: #### U MAC, UMIC ####[place] [address] pH Test strip (U) 5.5 [pH] Normal 5.0-7.0 [facility] Comment on above: Performed By: #### U MAC, UMIC ####[place] [address] URINE HEMOGLOBIN Negative Normal NEGATIVE [facility] Comment on above: Performed By: #### U MAC, UMIC ####[place] [address] URINE KETONE 15 mg/dl Abnormal NEGATIVE [facility] Comment on above: Performed By: #### U MAC, UMIC ####[place] [address] URINE LEUKOTEST Negative Normal NEGATIVE [facility] Comment on above: Result Comment: Test ing performed at [place] [address] Performed By: #### U MAC, UMIC ####[place] [address] URINE NITRATES Negative Normal NEGATIVE [facility] Comment on above: Performed By: #### U MAC, UMIC ####[place] [address] URINE SPEC GRAVITY >1.030 High 1.010-1.025 [facility] Comment on above: Performed By: #### U MAC, UMIC ####[place] [address] URINE TOTAL PROTEIN TRACE Abnormal NEGATIVE [facility] Comment on above: Performed By: #### U MAC, UMIC ####Testing performed at [facility] [address] [place] [address] Urobilinogen Test strip Qn (U) 0.2 mg/dl Normal 0.2-1.0 [facility] Comment on above: Performed By: #### U MAC, UMIC ####[place] [address] URINE MICROSCOPICon 10-25-20 17 BACTERIA 1+ Abnormal NEGATIVE [facility] Comment on above: Performed By: #### U MAC, UMIC ####[place] [address] CASTS NONE Normal [facility] Comment on above: Performed By: #### U MAC, UMIC ####[place] [address] CRYSTAL NONE Normal [facility] Comment on above: Performed By: #### U MAC, UMIC ####[place] [address] EPITHELIAL CELLS 1 TO 5 Normal [facility] Comment on above: Performed By: #### U MAC, UMIC ####[place] [address] MUCUS TRACE Abnormal NEGATIVE [facility] Comment on above: Performed By: #### U MAC, UMIC ####[place] [address] RBC Test strip #/vol (U) Negative Normal NEGATIVE [facility] Comment on above: Performed By: #### U MAC, UMIC ####[place] [address] URINE COMMENT CULTURE CRITERIA NOT MET, NO CULTURE PERFORMED. Normal [facility] Comment on above: Result Comment: Test ing performed at [place] [address] Performed By: #### U MAC, UMIC ####[place] [address] URINE WBC'S 1 TO 5 Normal NEGATIVE [facility] Comment on above: Performed By: #### U MAC, UMIC ####[place] [address] CHLAM/GC AMPLIFon 10-17-2017 CHLAMYDIA NUC. AMP Negative Normal Negative [facility] GONOCOCCUS NUC. AMP Negative Normal Negative [facility] Comment on above: Result Comment: PERF ORMED AT [facility] BHCG,QUANTITATIVEon 10-15-20 17 CG,QUANTITATIVE [address].00 MIU/ML Normal Av [facility] Comment on above: Result Comment: [facility] INTERPRETIVE RANGES: NON FEMALE 0-6 MIU/MLMALE ADULT 0-2 MIU/ML0-1 WEEK 6-50 MIU/ML1-2 WEEKS 40-300 MIU/ML2-3 WEEKS 100-1,000 MIU/ML3-4 WEEKS 500-6,000 MIU/ML1-2 MONTHS 5,000-200,000 MIU/ML2-3 MONTHS 10,000-100,000 MIU/ML2ND TRIMESTER 3,000-50,000 MIU/ML3RD TRIMESTER 1,000-50,000 MIU/MLIf an hCG level is inconsistent with, or unsupported by, clinical evidence, results should be confirmed by an alternate hCG method. This method may include the qualitative hCG testing of urine.Testing performed at [place] [address] Performed By: #### A CBC, CHEM7F, BHCG2 ####[place] [address] CBCon 10-15-2017 ABSOLUTE BAS 0.1 X10 Normal [facility] Comment on above: Result Comment: Test ing performed at [place] [address] Performed By: #### A CBC, CHEM7F, BHCG2 ####[place] [address] ABSOLUTE EOS 0.20 X10 Normal [facility] Comment on above: Performed By: #### A CBC, CHEM7F, BHCG2 ####[place] [address] ABSOLUTE NEUTROPHIL COUNT 7.6 x10 High 1.0-7.0 [facility] Comment on above: Performed By: #### A CBC, CHEM7F, BHCG2 ####Testing performed at [address] [address] Basophils/100 WBC Auto (Bld) 0.8 % Normal 0.0-2.0 [facility] Comment on above: Performed By: #### A CBC, CHEM7F, BHCG2 ####Testing performed at [address] [address] DTYPE AUTO DIFF Normal [facility] Comment on above: Performed By: #### A CBC, CHEM7F, BHCG2 ####Testing performed at [address] [address] Eosinophils/100 WBC Auto (Bld) 2.0 % Normal 0.0-11.0 [facility] Comment on above: Performed By: #### A CBC, CHEM7F, BHCG2 ####Testing performed at [address] [address] Lymphocytes Auto #/vol (Bld) 1.40 X10 Normal [facility] Comment on above: Performed By: #### A CBC, CHEM7F, BHCG2 ####Testing performed at [address] [address] Lymphocytes/100 WBC Auto (Bld) 14.3 % Low 20.0-55.0 [facility] Comment on above: Performed By: #### A CBC, CHEM7F, BHCG2 ####Testing performed at [address] [address] Monocytes Auto #/vol (Bld) 0.6 X10 Normal [facility] Comment on above: Performed By: #### A CBC, CHEM7F, BHCG2 ####Testing performed at [address] [address] Monocytes/100 WBC Auto (Bld) 5.9 % Normal 0.0-10.0 [facility] Comment on above: Performed By: #### A CBC, CHEM7F, BHCG2 ####[place] [address] Neutrophils/100 WBC Auto (Bld) 77.0 % High 37.0-75.0 [facility] Comment on above: Performed By: #### A CBC, CHEM7F, BHCG2 ####[place] [address] Erythrocyte distribution width Auto Ratio (RBC) 15.1 % High 11.5-14.5 [facility] Comment on above: Performed By: #### A CBC, CHEM7F, BHCG2 ####[place] [address] Hematocrit Auto Volume Fraction (Bld) 36.8 % Normal 36.0-48.0 [facility] Comment on above: Performed By: #### A CBC, CHEM7F, BHCG2 ####[place] [address] Hemoglobin mass conc (Bld) 12.3 g/dL Normal 12.0-16.0 [facility] Comment on above: Performed By: #### A CBC, CHEM7F, BHCG2 ####[place] [address] MCH Auto Entitic mass (RBC) 27.2 pg Normal 26.0-35.0 [facility] Comment on above: Performed By: #### A CBC, CHEM7F, BHCG2 ####[place] [address] MCHC Auto mass conc (RBC) 33.3 g/dL Normal 27.0-37.0 [facility] Comment on above: Performed By: #### A CBC, CHEM7F, BHCG2 ####[place] [address] MCV Auto Entitic volume (RBC) 81.7 fL Normal 80.0-100.0 [facility] Comment on above: Performed By: #### A CBC, CHEM7F, BHCG2 ####[place] [address] Platelet mean volume Auto Entitic volume (Bld) 8.4 fL Normal 7.4-11.0 [facility] Comment on above: Performed By: #### A CBC, CHEM7F, BHCG2 ####[place] [address] Platelets Auto #/vol (Bld) 237 /cmm Normal 130.0-400.0 [facility] Comment on above: Performed By: #### A CBC, CHEM7F, BHCG2 ####[place] [address] RBC Auto #/vol (Bld) 4.51 /cmm Normal 4.0-5.4 [facility] Comment on above: Performed By: #### A CBC, CHEM7F, BHCG2 ####[place] [address] WBC Auto #/vol (Bld) 9.9 /cmm Normal 3.6-11.0 [facility] Comment on above: Performed By: #### A CBC, CHEM7F, BHCG2 ####[place] [address] CHEM 7 FASTINGon 10-15-2017 Chloride molar conc 106 mmol/L Normal 98-107 [facility] Comment on above: Performed By: #### A CBC, CHEM7F, BHCG2 ####[place] [address] CO2 molar conc 21 mmol/L Low 22-30 [facility] Comment on above: Performed By: #### A CBC, CHEM7F, BHCG2 ####[place] [address] Creatinine mass conc 0.7 mg/dL Normal 0.7-1.2 [facility] Comment on above: Performed By: #### A CBC, CHEM7F, BHCG2 ####[place] [address] EST. GFR, >60 Normal [facility] Comment on above: Performed By: #### A CBC, CHEM7F, BHCG2 ####[place] [address] EST. GFR,Non >60 Normal [facility] Comment on above: Performed By: #### A CBC, CHEM7F, BHCG2 ####[place] [address] GFR/1.73 sq M predicted among non-blacks MDRD vol rate/area (S/P/Bld) Average GFR for 20-29 years old = 116. Normal [facility] Comment on above: Result Comment: Lead Business Systems Analyst frantz Kidney disease, GFR = <60.Kidney failure, GFR = <15.The GFR estimate is not adjusted for extreme body surface area or acute process, nor has it been validated for women or ethnic groups other than and .Testing performed at [place] [address] Performed By: #### A CBC, CHEM7F, BHCG2 ####[place] [address] Glucose mass conc 90 mg/dL Normal 70-100 [facility] Comment on above: Result Comment: NORM AL <100 mg/dLPREDIABETES 101-126 mg/dLDIABETES 126 mg/dL or higher Performed By: #### A CBC, CHEM7F, BHCG2 ####[place] [address] Potassium molar conc 3.4 mmol/L Low 3.5-5.1 [facility] Comment on above: Performed By: #### A CBC, CHEM7F, BHCG2 ####[place] [address] Sodium molar conc 137 mmol/L Normal 137-145 [facility] Comment on above: Performed By: #### A CBC, CHEM7F, BHCG2 ####[place] [address] Urea nitrogen mass conc (Bld) 4 mg/dL Low 7-20 [facility] Comment on above: Performed By: #### A CBC, CHEM7F, BHCG2 ####[place] [address] GENITAL CULTUREon 10-15-2017 GENITAL CULTURE SPECIMEN DESCRIPTION VAGINAL SPECIMENGRAM SMEAR MODERATE * Result Note: WBC'S SEEN * * Result Note: MODERATE * * Result Note: SQUAMOUS EPITHELIAL CELLS * * Result Note: NUMEROUS * * Result Note: GRAM POSITIVE RODS * * Result Note: THE GRAM STAIN SHOWS MORPHOTYPES CONSISTENT WITH NORMAL VAGINAL MICROBIOTA. THIS STATEMENT IS VALID ONLY FOR WOMEN IN CHILDBEARING YEARS AND POST MENOPAUSAL WOMEN ON ESTROGEN REPLACEMENT THERAPY. *CULTURE USUAL VAGINAL SCOTTY PRESENT * Result Note: Testing performed at [place] [address] *REPORT STATUS 10/17/2017 * Result Note: FINAL * Normal [facility] Comment on above: Performed By: #### G ENC ####[place] [address] NATA PREPARATIONon 10-15-2017 NATA PREPARATION SPECIMEN DESCRIPTION VAGINAL SPECIMENKOH PREP NO YEAST SEEN * Result Note: VERIFIED BY DUP TESTING * * Result Note: Testing performed at [place] [address] *REPORT STATUS 10/15/2017 * Result Note: FINAL * Normal [facility] Comment on above: Performed By: #### K [place] ####[place] [address] US OB TRANSVAGINAL/CERVICAL LENGTHon 10-15-2017 US OB TRANSVAGINAL/CERVICAL LENGTH ULTRASOUND OB VIABILITYEXAMINATION: Pelvic Ultrasound for ViabilityCLINICAL HISTORY: Right-sided pelvic pain and crampingTECHNIQUE: Grayscale and color Doppler ultrasound of the pelvis and bilateral adnexa was performed in multiple planes.FINDINGS: The cervix is closed. There is a single live intrauterine gestation identified.The yolk sac is visualized.CRL averages 9 mm, corresponding to 6 weeks, 3 days, +/- 3 days. The estimated date of delivery is 06/07/2018. cardiac activity is identified. heart rate measures 119 beats per minute.The right ovary measures 2.9 x 2.1 x 2.3 cm. The left ovary measures 2.4 x 1.9 x 1.8 cm. No abnormal fluid collections are noted. No adnexal masses are identified.Amniotic fluid: appears normal. Placenta: too early to visualize at this gestational age.IMPRESSION:Single live intrauterine gestation corresponding to 6 weeks, 3 days, +/- 3 days. No gross abnormalities are seen. Follow up examination is recommended at 18-20 weeks gestation for evaluation of anatomy. Normal [facility] WET PREPon 10-15-2017 WET PREP SPECIMEN DESCRIPTION VAGINAL SPECIMENWET PREP NO TRICHOMONAS SEEN * Result Note: NO CLUE CELLS SEEN * * Result Note: VERIFIED BY DUP TESTING * * Result Note: Testing performed at [place] [address] *REPORT STATUS 10/15/2017 * Result Note: FINAL * Normal [facility] Comment on above: Performed By: #### W ETP ####[place] [address] CMP FASTINGon 09-03-2017 A:G RATIO 1.1 RATIO Low 1.3-2.2 [facility] Comment on above: Performed By: #### C MPF ####[place] [address] Albumin mass conc 3.9 G/dl Normal 3.5-5.0 [facility] Comment on above: Performed By: #### C MPF ####[place] [address] Creatinine mass conc 0.8 mg/dL Normal 0.52-1.04 [facility] Comment on above: Performed By: #### C MPF ####Testing performed at [place] [id number] EST. GFR, >60 Normal [facility] Comment on above: Performed By: #### C MPF ####Testing performed at [place] [id number] EST. GFR,Non >60 Normal [facility] Comment on above: Performed By: #### C MPF ####Testing performed at [address] [place] [address] GFR/1.73 sq M predicted among non-blacks MDRD vol rate/area (S/P/Bld) Average GFR for 20-29 years old = 116. Normal [facility] Comment on above: Result Comment: Lead Business Systems Analyst frantz Kidney disease, GFR = <60.Kidney failure, GFR = <15.The GFR estimate is not adjusted for extreme body surface area or acute process, nor has it been validated for women or ethnic groups other than and . Performed By: #### C MPF ####Testing performed at [place] [id number] Urea nitrogen mass conc (Bld) 6 mg/dL Low 7-20 [facility] Comment on above: Performed By: #### C MPF ####Testing performed at [address] [address] ALP enzyme act/vol 75 U/L Normal 38-126 [facility] Comment on above: Performed By: #### C MPF ####Testing performed at [address] [address] ALT enzyme act/vol 18 U/L Normal 14-54 [facility] Comment on above: Performed By: #### C MPF ####Testing performed at [address] [address] AST enzyme act/vol 23 U/L Normal 15-41 [facility] Comment on above: Performed By: #### C MPF ####Testing performed at [address] [address] Bilirubin mass conc 1.2 mg/dL Normal 0.2-1.2 [facility] Comment on above: Performed By: #### C MPF ####Testing performed at [address] [address] Protein mass conc 7.4 g/dL Normal 6.3-8.2 [facility] Comment on above: Performed By: #### C MPF ####Testing performed at [address] [address] Calcium mass conc 8.9 mg/dL Normal 8.4-10.2 [facility] Comment on above: Performed By: #### C MPF ####Testing performed at [address] [address] Chloride molar conc 108 mmol/L High 98-107 [facility] Comment on above: Performed By: #### C MPF ####Testing performed at [address] [address] CO2 molar conc 19 mmol/L Critically low 22-30 [facility] Comment on above: Result Comment: Resu lt called to read back by: CHUCK FLETCHER 09/03/2017 @ 18:34 by DDD Performed By: #### C MPF ####Testing performed at [place] [id number] Glucose mass conc 96 mg/dL Normal 70-100 [facility] Comment on above: Result Comment: NORM AL <100 mg/dLPREDIABETES 101-126 mg/dLDIABETES 126 mg/dL or higher Performed By: #### C MPF ####[place] [address] Potassium molar conc 3.8 mmol/L Normal 3.5-5.1 [facility] Comment on above: Performed By: #### C MPF ####Testing performed at [place] [id number] Sodium molar conc 138 mmol/L Normal 137-145 [facility] Comment on above: Performed By: #### C MPF ####Testing performed at [place] [id number] CT ABDOMEN/PELVIS WITHOUT CO NTRASTon 09-03-2017 CT ABDOMEN/PELVIS WITHOUT CONTRAST EXAM TYPE: CT ABDOMEN/PELVIS WITHOUT CONTRASTEXAM DATE AND TIME: 09/03/2017 6:23 PM.INDICATION: 26 [id number] with bleeding. History of Crohn's disease. Prior small bowel resection. COMPARISON: None.TECHNIQUE: CT imaging of the abdomen and pelvis without intravenous contrast.Dose reduction techniques were achieved by using automated exposure control and/or adjustment of mA and/or kV according to patient size and/or use of iterative reconstruction technique.FINDINGS:LOWER CHEST: Normal.ABDOMEN:LIVER: Normal.BILE DUCTS: Normal caliber.GALLBLADDER: Contracted.PANCREAS: Normal.SPLEEN: Normal.ADRENALS: Normal.KIDNEYS: No renal calculi. No hydronephrosis.PELVIS:REP RODUCTIVE ORGANS: No pelvic masses.URETERS: Normal caliber.BLADDER: Normal.BOWEL: No bowel obstruction. Normal appendix. No enlarged mesenteric lymph nodes.PERITONEUM: No free intraperitoneal air. No ascites or fluid collection.VESSELS: Within normal limits.LYMPH NODES: No enlarged lymph nodes. ABDOMINAL WALL: Within normal limits.BONES: Normal.IMPRESSION: 1. No acute findings in the abdomen or pelvis. 2. No evidence of bowel obstruction. Colon is predominantly decompressed. 3. Normal appendix. Normal [facility] ED NOTEon 09-03-2017 [facility] NOTES Normal [facility] NOTES Normal [facility] NOTES Normal [facility] NOTES Normal [facility] ED PROVIDERon 09-03-2017 [facility] HIM CAC NOTES Normal [facility] NOTES Normal [facility] URINE HCG QUALon 09-03-2017 HCG.beta subunit ( test) Ql (U) Negative Normal NEGATIVE [facility] Comment on above: Performed By: #### U HCGT, UMAC ####[place] [address] URINE MACROSCOPICon 09-03-20 17 Bilirubin Ql (U) Negative Normal NEGATIVE [facility] Comment on above: Performed By: #### U HCGT, UMAC ####Testing performed at [address] [address] Clarity Nom (U) CLEAR Abnormal CLEAR [facility] Comment on above: Performed By: #### U HCGT, UMAC ####Testing performed at [address] [address] Color Nom (U) YELLOW Normal YELLOW [facility] Comment on above: Performed By: #### U HCGT, UMAC ####Testing performed at [place] [id number] Glucose Ql (U) Negative Normal NEGATIVE [facility] Comment on above: Performed By: #### U HCGT, UMAC ####[place] [address] pH Test strip (U) 6.0 [pH] Normal 5.0-7.0 [facility] Comment on above: Performed By: #### U HCGT, UMAC ####Testing performed at [address] [place] [address] URINE HEMOGLOBIN Negative Normal NEGATIVE [facility] Comment on above: Performed By: #### U HCGT, UMAC ####Testing performed at [address] [place] [address] URINE KETONE Negative Normal NEGATIVE [facility] Comment on above: Performed By: #### U HCGT, UMAC ####Testing performed at [address] [place] [address] URINE LEUKOTEST Negative Normal NEGATIVE [facility] Comment on above: Performed By: #### U HCGT, UMAC ####Testing performed at [address] [place] [address] URINE NITRATES Negative Normal NEGATIVE [facility] Comment on above: Performed By: #### U HCGT, UMAC ####Testing performed at [address] [address] URINE SPEC GRAVITY 1.015 Normal 1.010-1.025 [facility] Comment on above: Performed By: #### U HCGT, UMAC ####Testing performed at [address] [address] URINE TOTAL PROTEIN Negative Normal NEGATIVE [facility] Comment on above: Performed By: #### U HCGT, UMAC ####Testing performed at [address] [address] Urobilinogen Test strip Qn (U) 0.2 mg/dl Normal 0.2-1.0 [facility] Comment on above: Performed By: #### U HCGT, UMAC ####Testing performed at [address] [address] Comp Metabolic Panelon 08-28 Alanine aminotransferase (ALT) 29 U/L Normal 12-78 [facility] Comment on above: Performed By: #### H SHARMILA CMP3 ####Parish BessUvqu[address] [facility] [place] [address] Albumin 3.8 g/dL Normal 3.4-5.0 [facility] Comment on above: Performed By: #### H EMDF, CMP3 ####[address] [place] [address] Alkaline phosphatase (ALP) 107 U/L Normal 45-117 [facility] Comment on above: Performed By: #### H EMDF, CMP3 ####[place] [address] [place] [address] Anion gap 10 mmol/L Normal [facility] Comment on above: Performed By: #### H EMDF, CMP3 ####[place] [address] [place] [address] Aspartate aminotransferase (AST) 16 U/L Normal 15-37 [facility] Comment on above: Performed By: #### H EMDF, CMP3 ####[place] [address] [place] [address] Bilirubin (total) 1.0 mg/dL Normal 0.2-1.0 [facility] Comment on above: Performed By: #### H EMDF, CMP3 ####[place] [place] [address] Calcium 9.1 mg/dL Normal 8.2-10.1 [facility] Comment on above: Performed By: #### H EMDF, CMP3 ####[place] [address] [place] [address] Chloride 102 mmol/L Normal 98-109 [facility] Comment on above: Performed By: #### H EMDF, CMP3 ####[place] [address] [place] [address] CO2 27 mmol/L Normal 21-32 [facility] Comment on above: Performed By: #### H EMDF, CMP3 ####[place] [place] [address] Creatinine 0.94 mg/dL Normal 0.55-1.40 [facility] Comment on above: Performed By: #### H EMDF, CMP3 ####[place] [address] [place] [address] eGFR (black) mL/min/{1.73_m2} Normal >60 [facility] Comment on above: Performed By: #### H EMDF, CMP3 ####L[address]o [address] [place] [address] eGFR (non-black) mL/min/{1.73_m2} Normal >60 [facility] Comment on above: Result Comment: Sour ce- MDRD equation with creatinine calibration to IDMS(NKDEP)eGFR not recommended for drug dose adjustment Performed By: #### H GURJIT DOLL3 ####Parish [address] [facility] [place] [address] Glucose mass conc 86 mg/dL Normal 70-100 [facility] Comment on above: Result Comment: . Performed By: #### H GURJIT DOLL3 ####Parish BessMyyamm6823 [facility] [place] [address] Potassium molar conc 3.4 mmol/L Low 3.5-5.1 [facility] Comment on above: Performed By: #### H SHARMILA CMP3 ####Parish BessYilsax5484 [facility] [place] [address] Protein 8.2 g/dL Normal 6.4-8.2 [facility] Comment on above: Performed By: #### H SHARMILA CMP3 ####[facility] Hospital[facility]6662 [facility] [place] [address] Sodium 139 mmol/L Normal 135-145 [facility] Comment on above: Performed By: #### Franklin DOLL CMP3 ####Parish BessXflmch9881 [facility] [place] [address] Urea nitrogen 9 mg/dL Normal 7-25 [facility] Comment on above: Performed By: #### H SHARMILA CMP3 ####Lugo Ldfjsn7882 [facility] [place] [address] Hemogram w/ Autodiffon 08-28 Abs Baso Cnt 0.1 10*3/uL Normal 0.0-0.2 [facility] Comment on above: Performed By: #### H SHARMILA CMP3 ####[facility] HospitalFszcym7838 [facility] [place] [address] Basophils/100 WBC Auto (Bld) 0.6 % Normal [facility] Comment on above: Performed By: #### H SHARMILA CMP3 ####Lugo Xvklnf4163 [facility] [place] [address] Eosinophils 0.3 10*3/uL Normal 0.0-0.5 [facility] Comment on above: Performed By: #### H GURJIT DOLL3 ####Parks Jyzuuu[address]666 [place] [address] Eosinophils/100 leukocytes 2.9 % Normal [facility] Comment on above: Performed By: #### H EMDBrooke, CMP3 ####Lugo Mmeqma0212 [facility] [place] [address] Erythrocyte distribution width Auto Ratio (RBC) 13.7 % Normal 11.5-14.5 [facility] Comment on above: Performed By: #### H EMDBrooke, CMP3 ####Parks Djnckd8104 [facility] [place] [address] Erythrocytes (RBC) 5.35 10*6/uL High 3.80-5.20 [facility] Comment on above: Performed By: #### H EMDBrooke CMP3 ####Lugo Fgakzm8170 [place] [address] Granulocytes/100 WBC (Bld) 64.4 % Normal [facility] Comment on above: Performed By: #### H SHARMILA CMP3 ####Parks Pzbcet8624 [place] [address] Hematocrit (HCT) 42.8 % Normal 35.0-47.0 [facility] Comment on above: Performed By: #### H SHARMIAL CMP3 ####Parks Ajipdj6119 [place] [address] Hemoglobin mass conc (Bld) 13.9 g/dL Normal 11.7-16.0 [facility] Comment on above: Performed By: #### H SHARMILA CMP3 ####Parks Znxivm2076 [place] [address] Lymphocytes 2.6 10*3/uL Normal 1.0-4.3 [facility] Comment on above: Performed By: #### H EMDBrooke CMP3 ####Lugo Axlxao5282 [place] [address] Lymphocytes/100 leukocytes 25.5 % Normal [facility] Comment on above: Performed By: #### H EMDF, CMP3 ####Lugo Kqdtgn0489 [place] [address] MCH 26.0 pg Normal 26.0-34.0 [facility] Comment on above: Performed By: #### H EMDBrooke CMP3 ####Parks Xhq[address] [place] [address] MCHC mass conc (RBC) 32.5 % Normal 32.0-36.0 [facility] Comment on above: Performed By: #### H EMDF, CMP3 ####Lugo Mvvmcz5428 [address] RoadBl[facility] [place] [address] MCV 79.9 fL Normal 79.0-98.0 [facility] Comment on above: Performed By: #### H EMDF, CMP3 ####Lugo Znuoes[address] [place] [address] Monocytes 0.7 10*3/uL Normal 0.0-0.8 [facility] Comment on above: Performed By: #### H EMDF, CMP3 ####Lugo Feppgo0540 [address] RoadBlanch[facility] [place] [address] Monocytes/100 leukocytes 6.6 % Normal [facility] Comment on above: Performed By: #### H EMDF, CMP3 ####Parks Powoyl[address] [facility] [address] Neutrophils 6.5 10*3/uL Normal 1.8-7.0 [facility] Comment on above: Performed By: #### H EMDF, CMP3 ####Parks Tiosuw[address] [facility] [address] Platelet mean volume (PMV) 8.6 fL Normal 7.4-10.4 [facility] Comment on above: Performed By: #### H EMDF, CMP3 ####Parks Awmodo[address] [facility] [address] Platelets 279 10*3/uL Normal 140-440 [facility] Comment on above: Performed By: #### H EMDF, CMP3 ####Parks Ncpsgr4[address] RoadBl[facility] [place] [address] WBC (Leukocytes) 10.2 10*3/uL Normal 3.6-10.7 [facility] Comment on above: Performed By: #### H EMDF, CMP3 ####Lugo Ryhgmc1980 [address] RoadBl[facility] [facility] [place] [address] Urinalysis,Macroon 10-24-201 7 Bilirubin (direct) Negative Normal Negative [facility] Comment on above: Performed By: #### U AMAC, UAMIC ####Lugo Wutfjl[address] [place] [address] Ketone,Urine Negative Normal Negative [facility] Comment on above: Performed By: #### U AMAC, UAMIC ####Lugo Njyuga[address] [place] [address] Occult Blood,Ur Negative Normal Negative [facility] Comment on above: Performed By: #### U AMAC, UAMIC ####Lugo Zdpjyh[address] [place] [address] Specific [place],Urine 1.005 Normal 1.005-1.030 [facility] Comment on above: Performed By: #### U AMAC, UAMIC ####Lugo Y[address]knv[address] [place] [address] Total Protein,Urine Negative Normal Negative [facility] Comment on above: Performed By: #### U AMAC, UAMIC ####Lugo Roibec[address] [place] [address] Urine, appearance Clear Normal Clear [facility] Comment on above: Performed By: #### U AMAC, UAMIC ####Lugo Opyzla9[address] RoadBl[facility] [place] [address] Urine, color Yellow Normal Lt. Yellow [facility] Comment on above: Performed By: #### U AMAC, UAMIC ####Lugo Xyuoij[address] [place] [address] Urine, glucose presence NEG (Normal) Normal Negative [facility] Comment on above: Performed By: #### U AMAC, UAMIC ####Lugo El[address]pa[address] [place] [address] Urine, nitrite presence Negative Normal Negative [facility] Comment on above: Performed By: #### U AMAC, UAMIC ####Lugo Byqnvq[address] [place] [address] Urine, pH 7.0 [pH] Normal 5.0-8.0 [facility] Comment on above: Performed By: #### U AMAC, UAMIC ####Lugo Jwlaef[address] [place] [address] Urine, urobilinogen Normal (0.2) Normal 0-1 [facility] Comment on above: Performed By: #### U AMAC, UAMIC ####Lugo Ethhjy[address] [place] [address] WBC (Leukocytes) Trace Normal Negative [facility] Comment on above: Performed By: #### U AMAC, UAMIC ####Lugo Ekzwlc[address] [place] [address] Urinalysis,Microscopicon Urine, bacteria in sediment Many (51-100) Normal Negative [facility] Comment on above: Performed By: #### U AMAC, UAMIC ####Lugo Iz[address]oo[address] [place] [address] Urine, epithelial cells in sediment 6-10 Normal 3-5 [facility] Comment on above: Performed By: #### U AMAC, UAMIC ####Lugo Sitzib[address] [place] [address] Urine, erythrocytes in sediment by area 0-2 Normal 0-2 [facility] Comment on above: Performed By: #### U AMAC, UAMIC ####Lugo Ebvvsf[address] [place] [address] Urine, leukocytes in sedmiment 0-2 Normal 0-5 [facility] Comment on above: Performed By: #### U AMAC, UAMIC ####Lugo Mkjjib6268 [place] [address] Influenza virus A and B and SARS-CoV-2 (COVID-19) Ag panel - Upper respiratory specim SARS-CoV-2 (COVID-19) RNA JYOTI+probe Ql (Resp) [facility] Work Phone: Vital Signs Date Time Vital Sign Value Performing Clinician Facility 05-13-2025 12:46-0400 Body height 162.6 cm Zoë Santana MD Work Phone: [facility] 05-13-2025 12:46-0400 Body mass index (BMI) [Ratio] 52.7 kg/m2 Zoë Santana MD Work Phone: [facility] 05-13-2025 12:46-0400 Body weight 139.25 kg Zoë Santana MD Work Phone: [facility] 05-13-2025 12:46-0400 Diastolic blood pressure 76 mm[Hg] Zoë Santana MD Work Phone: [facility] 05-13-2025 12:46-0400 Heart rate 62 /min Zoë Santana MD Work Phone: [facility] 05-13-2025 12:46-0400 SaO2% (BldA) [Mass fraction] 96 % Zoë Santana MD Work Phone: [facility] 05-13-2025 12:46-0400 Systolic blood pressure 128 mm[Hg] Zoë Santana MD Work Phone: [facility] 03-10-2025 12:49-0400 Body mass index (BMI) [Ratio] 52.03 kg/m2 Carline Pollack MD Work Phone: [facility] 03-10-2025 12:49-0400 Body weight 137.49 kg Carline Pollack MD Work Phone: [facility] 03-10-2025 12:49-0400 Diastolic blood pressure 77 mm[Hg] Carline Pollack MD Work Phone: [facility] 03-10-2025 12:49-0400 Heart rate 110 /min Carline Pollack MD Work Phone: [facility] 03-10-2025 12:49-0400 Systolic blood pressure 128 mm[Hg] Carline Pollack MD Work Phone: [facility] 03-03-2025 11:38-0400 Body height 162.6 cm Zoë Santana MD Work Phone: [facility] 03-03-2025 11:38-0400 Body mass index (BMI) [Ratio] 52.18 kg/m2 Zoë Santana MD Work Phone: [facility] 03-03-2025 11:38-0400 Body weight 137.89 kg Zoë Santana MD Work Phone: [facility] 03-03-2025 11:38-0400 Diastolic blood pressure 83 mm[Hg] Zoë Santana MD Work Phone: [facility] 03-03-2025 11:38-0400 Heart rate 93 /min Zoë Santana MD Work Phone: [facility] 03-03-2025 11:38-0400 SaO2% (BldA) [Mass fraction] 96 % Zoë Santana MD Work Phone: [facility] 03-03-2025 11:38-0400 Systolic blood pressure 142 mm[Hg] Zoë Santana MD Work Phone: [facility] 03-01-2025 17:52-0400 Body temperature 97.9 [degF] Jose Guadalupe Mills MD Work Phone: [facility] 03-01-2025 17:52-0400 Diastolic blood pressure 82 mm[Hg] Jose Guadalupe Mills MD Work Phone: [facility] 03-01-2025 17:52-0400 Heart rate 102 /min Jose Guadalupe Mills MD Work Phone: [facility] 03-01-2025 17:52-0400 Respiratory rate 16 /min Jose Guadalupe iMlls MD Work Phone: [facility] 03-01-2025 17:52-0400 SaO2% (BldA) [Mass fraction] 100 % Jose Guadalupe Mills MD Work Phone: [facility] 03-01-2025 17:52-0400 Systolic blood pressure 131 mm[Hg] Jose Guadalupe Mills MD Work Phone: [facility] 03-01-2025 16:42-0400 Body height 162.6 cm Jose Guadalupe Mills MD Work Phone: [facility] 03-01-2025 16:42-0400 Body mass index (BMI) [Ratio] 52.98 kg/m2 Jose Guadalupe Mills MD Work Phone: [facility] 03-01-2025 16:42-0400 Body weight 140 kg Jose Guadalupe Mills MD Work Phone: [facility] 02-16-2025 14:11-0400 Body temperature 98.4 [degF] Kelli Matthews MD Work Phone: [facility] 02-16-2025 14:11-0400 Diastolic blood pressure 79 mm[Hg] Kelli Matthews MD Work Phone: [facility] 02-16-2025 14:11-0400 Heart rate 96 /min Kelli Matthews MD Work Phone: [facility] 02-16-2025 14:11-0400 Respiratory rate 20 /min Kelli Matthews MD Work Phone: [facility] 02-16-2025 14:11-0400 SaO2% (BldA) [Mass fraction] 99 % Kelli Matthews MD Work Phone: [facility] 02-16-2025 14:11-0400 Systolic blood pressure 146 mm[Hg] Kelli Matthews MD Work Phone: [facility] 02-16-2025 14:09-0400 Body height 163.8 cm Kelli Matthews MD Work Phone: [facility] 02-16-2025 14:09-0400 Body mass index (BMI) [Ratio] 50.67 kg/m2 Kelli Matthews MD Work Phone: [facility] 02-16-2025 14:09-0400 Body weight 136 kg Kelli Matthews MD Work Phone: [facility] 02-15-2025 10:20-0400 Body temperature 98.2 [degF] Earl Colorado MD Work Phone: [facility] 02-15-2025 10:20-0400 Diastolic blood pressure 71 mm[Hg] Earl Colorado MD Work Phone: [facility] 02-15-2025 10:20-0400 Heart rate 88 /min Earl Colorado MD Work Phone: [facility] 02-15-2025 10:20-0400 Respiratory rate 20 /min Earl Colorado MD Work Phone: [facility] 02-15-2025 10:20-0400 SaO2% (BldA) [Mass fraction] 99 % Earl Colorado MD Work Phone: [facility] 02-15-2025 10:20-0400 Systolic blood pressure 130 mm[Hg] Earl Colorado MD Work Phone: [facility] 02-09-2025 11:31-0400 Body mass index (BMI) [Ratio] 52.53 kg/m2 Earl Colorado MD Work Phone: [facility] 02-09-2025 11:31-0400 Body weight 141 kg Earl Colorado MD Work Phone: [facility] 02-08-2025 19:26-0400 Body temperature 37 Earl Colorado MD Work Phone: [facility] 02-08-2025 19:10-0400 Body temperature 37.0 degrees Celsius EARL COLORADO [facility] Comment on above: Performed By: #### [id number] #### QUIN Simon ([id number]) [facility] ([facility]) [address] [place] [address] 02-08-2025 18:10-0400 Body height 163.8 cm Earl Colorado MD Work Phone: [facility] 01-15-2025 06:35-0400 Body temperature 97.9 [degF] Earl Colorado MD Work Phone: [facility] 01-15-2025 06:35-0400 Diastolic blood pressure 55 mm[Hg] Earl Colorado MD Work Phone: [facility] 01-15-2025 06:35-0400 Heart rate 62 /min Earl Colorado MD Work Phone: [facility] 01-15-2025 06:35-0400 Respiratory rate 16 /min Earl Colorado MD Work Phone: [facility] 01-15-2025 06:35-0400 SaO2% (BldA) [Mass fraction] 99 % Earl Colorado MD Work Phone: [facility] 01-15-2025 06:35-0400 Systolic blood pressure 115 mm[Hg] Earl Colorado MD Work Phone: [facility] 01-15-2025 02:07-0400 Body height 162.6 cm Earl Colorado MD Work Phone: [facility] 01-15-2025 02:07-0400 Body mass index (BMI) [Ratio] 50.71 kg/m2 Earl Colorado MD Work Phone: [facility] 01-15-2025 02:07-0400 Body weight 134 kg Earl Colorado MD Work Phone: [facility] 01-08-2025 19:59-0500 Body temperature 97.9 [degF] Earl Colorado MD Work Phone: [facility] 01-08-2025 19:59-0500 Diastolic blood pressure 81 mm[Hg] Earl Colorado MD Work Phone: [facility] 01-08-2025 19:59-0500 Heart rate 88 /min Earl Colorado MD Work Phone: [facility] 01-08-2025 19:59-0500 Respiratory rate 17 /min Earl Colorado MD Work Phone: [facility] 01-08-2025 19:59-0500 SaO2% (BldA) [Mass fraction] 98 % Earl Colorado MD Work Phone: [facility] 01-08-2025 19:59-0500 Systolic blood pressure 133 mm[Hg] Earl Colorado MD Work Phone: [facility] 01-08-2025 15:49-0500 Body height 162.6 cm Earl Colorado MD Work Phone: [facility] 01-08-2025 15:49-0500 Body mass index (BMI) [Ratio] 50.37 kg/m2 Earl Colorado MD Work Phone: [facility] 01-08-2025 15:49-0500 Body weight 133.1 kg Earl Colorado MD Work Phone: [facility] 12-25-2024 11:19-0500 Body temperature 98.1 [degF] Daisy Crews MD Work Phone: [facility] 12-25-2024 11:19-0500 Diastolic blood pressure 84 mm[Hg] Daisy Crews MD Work Phone: [facility] 12-25-2024 11:19-0500 Heart rate 81 /min Daisy Crews MD Work Phone: [facility] 12-25-2024 11:19-0500 Respiratory rate 19 /min Daisy Crews MD Work Phone: [facility] 12-25-2024 11:19-0500 SaO2% (BldA) [Mass fraction] 100 % Daisy Crews MD Work Phone: [facility] 12-25-2024 11:19-0500 Systolic blood pressure 137 mm[Hg] Daisy Crews MD Work Phone: [facility] 12-23-2024 16:45-0500 Body height 163.8 cm Daisy Crews MD Work Phone: [facility] 12-23-2024 16:45-0500 Body mass index (BMI) [Ratio] 48.32 kg/m2 Daisy Crews MD Work Phone: [facility] 12-23-2024 16:45-0500 Body weight 129.7 kg Daisy Crews MD Work Phone: [facility] 11-25-2024 13:09-0500 Body temperature 97.81 [degF] Sugey Pride MD Work Phone: [facility] 11-25-2024 13:09-0500 Body weight 122.02 kg Sugey Pride MD Work Phone: [facility] 11-25-2024 13:09-0500 Diastolic blood pressure 74 mm[Hg] Sugey Pride MD Work Phone: [facility] 11-25-2024 13:09-0500 Heart rate 90 /min Sugey Pride MD Work Phone: [facility] 11-25-2024 13:09-0500 Systolic blood pressure 116 mm[Hg] Sugey Pride MD Work Phone: [facility] 02-22-2024 17:52-0400 Body temperature 97.3 [degF] [facility] 02-22-2024 17:52-0400 Diastolic blood pressure 96 mm[Hg] [facility] 02-22-2024 17:52-0400 Heart rate 79 /min [facility] 02-22-2024 17:52-0400 Respiratory rate 16 /min [facility] 02-22-2024 17:52-0400 SaO2% (BldA) [Mass fraction] 97 % [facility] 02-22-2024 17:52-0400 Systolic blood pressure 121 mm[Hg] [facility] 02-22-2024 14:10-0400 Body height 163.83 cm [facility] 02-22-2024 14:10-0400 Body mass index (BMI) [Ratio] 42.8 kg/m2 [facility] 02-22-2024 14:10-0400 Body weight 114.94 kg [facility] 12-05-2023 11:46-0500 Diastolic blood pressure 72 mm[Hg] [facility] 12-05-2023 11:46-0500 Heart rate 84 /min [facility] 12-05-2023 11:46-0500 Respiratory rate 16 /min [facility] 12-05-2023 11:46-0500 SaO2% (BldA) [Mass fraction] 98 % [facility] 12-05-2023 11:46-0500 Systolic blood pressure 138 mm[Hg] [facility] 12-05-2023 07:38-0500 Body height 162.99 cm [facility] 12-05-2023 07:38-0500 Body mass index (BMI) [Ratio] 46.8 kg/m2 [facility] 12-05-2023 07:38-0500 Body temperature 97.8 [degF] [facility] 12-05-2023 07:38-0500 Body weight 124.51 kg [facility] 12-04-2023 16:09-0500 Body height 162.56 cm [facility] 12-04-2023 16:09-0500 Body mass index (BMI) [Ratio] 47.1 kg/m2 [facility] 12-04-2023 16:09-0500 Body temperature 98.1 [degF] [facility] 12-04-2023 16:09-0500 Body weight 124.51 kg [facility] 12-04-2023 16:09-0500 Diastolic blood pressure 85 mm[Hg] [facility] 12-04-2023 16:09-0500 Heart rate 68 /min [facility] 12-04-2023 16:09-0500 Respiratory rate 16 /min [facility] 12-04-2023 16:09-0500 SaO2% (BldA) [Mass fraction] 99 % [facility] 12-04-2023 16:09-0500 Systolic blood pressure 143 mm[Hg] [facility] 11-17-2023 04:51-0500 Diastolic blood pressure 78 mm[Hg] [facility] 11-17-2023 04:51-0500 Systolic blood pressure 113 mm[Hg] [facility] 11-17-2023 03:51-0500 SaO2% (BldA) [Mass fraction] 98 % [facility] 11-17-2023 02:59-0500 Body temperature 97.9 [degF] [facility] 11-17-2023 02:59-0500 Heart rate 77 /min [facility] 11-17-2023 02:59-0500 Respiratory rate 16 /min [facility] 11-17-2023 02:54-0500 Body height 162.56 cm [facility] 11-17-2023 02:54-0500 Body mass index (BMI) [Ratio] 50.1 kg/m2 [facility] 11-17-2023 02:54-0500 Body weight 132.5 kg [facility] 10-25-2023 14:57-0500 Body height 162.56 cm [facility] 10-25-2023 14:57-0500 Body mass index (BMI) [Ratio] 50 kg/m2 [facility] 10-25-2023 14:57-0500 Body temperature 97.7 [degF] [facility] 10-25-2023 14:57-0500 Body weight 132.16 kg [facility] 10-25-2023 14:57-0500 Diastolic blood pressure 85 mm[Hg] [facility] 10-25-2023 14:57-0500 Heart rate 81 /min [facility] 10-25-2023 14:57-0500 Respiratory rate 16 /min [facility] 10-25-2023 14:57-0500 SaO2% (BldA) [Mass fraction] 100 % [facility] 10-25-2023 14:57-0500 Systolic blood pressure 147 mm[Hg] [facility] 09-05-2023 07:00-0400 Diastolic blood pressure 88 mm[Hg] [facility] 09-05-2023 07:00-0400 Systolic blood pressure 145 mm[Hg] [facility] 09-05-2023 05:50-0400 Respiratory rate 18 /min [facility] 09-05-2023 05:50-0400 SaO2% (BldA) [Mass fraction] 98 % [facility] 09-05-2023 03:56-0400 Body mass index (BMI) [Ratio] 49.7 kg/m2 [facility] 09-05-2023 03:56-0400 Body temperature 98.1 [degF] [facility] 09-05-2023 03:56-0400 Body weight 131.4 kg [facility] 09-05-2023 03:56-0400 Heart rate 80 /min [facility] 06-05-2023 07:10-0400 Diastolic blood pressure 90 mm[Hg] [facility] 06-05-2023 07:10-0400 Heart rate 50 /min [facility] 06-05-2023 07:10-0400 Respiratory rate 16 /min [facility] 06-05-2023 07:10-0400 SaO2% (BldA) [Mass fraction] 100 % [facility] 06-05-2023 07:10-0400 Systolic blood pressure 150 mm[Hg] [facility] 06-05-2023 04:33-0400 Body height 162.56 cm [facility] 06-05-2023 04:33-0400 Body mass index (BMI) [Ratio] 46.3 kg/m2 [facility] 06-05-2023 04:33-0400 Body temperature 98.9 [degF] [facility] 06-05-2023 04:33-0400 Body weight 122.46 kg [facility] 05-17-2023 16:27-0400 Respiratory rate 18 /min [facility] 05-17-2023 15:25-0400 Body mass index (BMI) [Ratio] 45.8 kg/m2 [facility] 05-17-2023 15:25-0400 Body temperature 98.4 [degF] [facility] 05-17-2023 15:25-0400 Body weight 120.97 kg [facility] 05-17-2023 15:25-0400 Diastolic blood pressure 96 mm[Hg] [facility] 05-17-2023 15:25-0400 Heart rate 83 /min [facility] 05-17-2023 15:25-0400 SaO2% (BldA) [Mass fraction] 100 % [facility] 05-17-2023 15:25-0400 Systolic blood pressure 134 mm[Hg] [facility] 01-21-2023 17:09-0400 Respiratory rate 18 /min No Primary Care Physician [facility] 01-21-2023 15:10-0400 Body height 162.56 cm No Primary Care Physician [facility] 01-21-2023 15:10-0400 Body mass index (BMI) [Ratio] 46.7 kg/m2 No Primary Care Physician [facility] 01-21-2023 15:10-0400 Body temperature 96.3 [degF] No Primary Care Physician [facility] 01-21-2023 15:10-0400 Body weight 123.61 kg No Primary Care Physician [facility] 01-21-2023 15:10-0400 Diastolic blood pressure 78 mm[Hg] No Primary Care Physician [facility] 01-21-2023 15:10-0400 Heart rate 77 /min No Primary Care Physician [facility] 01-21-2023 15:10-0400 SaO2% (BldA) [Mass fraction] 100 % No Primary Care Physician [facility] 01-21-2023 15:10-0400 Systolic blood pressure 136 mm[Hg] No Primary Care Physician [facility] 12-14-2022 23:31-0500 Diastolic blood pressure 72 mm[Hg] No [facility] Physician [facility] [facility] 12-14-2022 23:31-0500 Heart rate 68 /min No Primary Care Physician [facility] 12-14-2022 23:31-0500 Respiratory rate 18 /min No Primary Care Physician [facility] 12-14-2022 23:31-0500 SaO2% (BldA) [Mass fraction] 100 % No Primary Care Physician [facility] 12-14-2022 23:31-0500 Systolic blood pressure 137 mm[Hg] No Primary Care Physician [facility] 12-14-2022 19:15-0500 Body height 162.56 cm No Primary Care Physician [facility] 12-14-2022 19:15-0500 Body mass index (BMI) [Ratio] 48 kg/m2 No Primary Care Physician [facility] 12-14-2022 19:15-0500 Body temperature 96.9 [degF] No Primary Care Physician [facility] 12-14-2022 19:15-0500 Body weight 127 kg No Primary Care Physician [facility] 10-26-2022 14:01-0500 Heart rate 65 /min No Primary Care Physician [facility] 10-26-2022 14:01-0500 Respiratory rate 18 /min No Primary Care Physician [facility] 10-26-2022 14:01-0500 SaO2% (BldA) [Mass fraction] 100 % No Primary Care Physician [facility] 10-26-2022 12:33-0500 Diastolic blood pressure 85 mm[Hg] No Primary Care Physician [facility] 10-26-2022 12:33-0500 Systolic blood pressure 114 mm[Hg] No Primary Care Physician [facility] 10-26-2022 10:01-0500 Body height 162.56 cm No Primary Care Physician [facility] Work Phone: 10-26-2022 10:01-0500 Body mass index (BMI) [Ratio] 48 kg/m2 No Primary Care Physician [facility] 10-26-2022 10:01-0500 Body temperature 96.8 [degF] No Primary Care Physician [facility] 10-26-2022 10:01-0500 Body weight 127 kg No Primary Care Physician [facility] 09-06-2022 18:51-0400 Diastolic blood pressure 88 mm[Hg] DR SALIMA CONSTANTINO MD [facility] 09-06-2022 18:51-0400 Heart rate 90 /min DR SALIMA CONSTANTINO MD [facility] 09-06-2022 18:51-0400 Respiratory rate 18 /min DR SALIMA CONSTANTINO MD [facility] 09-06-2022 18:51-0400 Systolic blood pressure 140 mm[Hg] DR SALIMA CONSTANTINO MD [facility] 09-06-2022 17:04-0400 Body temperature 98.96 [degF] DR SALIMA CONSTANTINO MD [facility] 09-06-2022 17:04-0400 Diastolic blood pressure 90 mm[Hg] DR SALIMA CONSTANTINO MD [facility] 09-06-2022 17:04-0400 Heart rate 93 /min DR SALIMA CONSTANTINO MD [facility] 09-06-2022 17:04-0400 Respiratory rate 18 /min DR SALIMA CONSTANTINO MD [facility] 09-06-2022 17:04-0400 Systolic blood pressure 151 mm[Hg] DR SALIMA CONSTANTINO MD [facility] 08-18-2022 21:28-0400 Body temperature 101 [degF] No Primary Care Physician [facility] 08-18-2022 21:03-0400 Diastolic blood pressure 76 mm[Hg] [facility] 08-18-2022 21:03-0400 Heart rate 78 /min [facility] 08-18-2022 21:03-0400 Respiratory rate 16 /min [facility] 08-18-2022 21:03-0400 SaO2% (BldA) [Mass fraction] 99 % [facility] 08-18-2022 21:03-0400 Systolic blood pressure 128 mm[Hg] [facility] 08-18-2022 16:21-0400 Body temperature 98.7 [degF] [facility] Work Phone: 08-18-2022 16:20-0400 Body height 162.56 cm [facility] Work Phone: 08-18-2022 16:20-0400 Body mass index (BMI) [Ratio] 46.3 kg/m2 [facility] 08-18-2022 16:20-0400 Body weight 122.4 kg [facility] 10-07-2018 12:45-0500 BMI (Body Mass Index) 46.59 kg/m2 [facility] Work Phone: 10-07-2018 12:45-0500 Body Temperature 97.59 [degF] [facility] Work Phone: 10-07-2018 12:45-0500 BP Diastolic 101 mm[Hg] [facility] Work Phone: 10-07-2018 12:45-0500 BP Systolic 141 mm[Hg] [facility] Work Phone: 10-07-2018 12:45-0500 Height 161.3 cm [facility] Work Phone: 10-07-2018 12:45-0500 Pulse (Heart Rate) 98 /min [facility] Work Phone: 10-07-2018 12:45-0500 Respiratory Rate 18 /min [facility] Work Phone: 10-07-2018 12:45-0500 Weight 121.2 kg [facility] Work Phone: 09-08-2018 15:52-0500 Respiratory Rate 16 /min Juan Dawit [facility] 09-08-2018 11:00-0500 Body Temperature 99.19 [degF] Juan Dawit [facility] 09-08-2018 11:00-0500 BP Diastolic 72 mm[Hg] Juan Dawit [facility] 09-08-2018 11:00-0500 BP Systolic 109 mm[Hg] Juan Pastor [facility] 09-08-2018 11:00-0500 Pulse (Heart Rate) 122 /min Juan Dawit [facility] 09-08-2018 11:00-0500 Pulse Oximetry 94 % Juan Dawit [facility] Encounters Encounter Date Encounter Type Care Provider Facility Start: 05-13-2025 End: 05-13-2025 Office outpatient visit 25 minutes Zoë Santana MD Work Phone: [facility] Comment on above: Type 2 diabetes alix itus without complication, with long-term current use of insulin (Primary Dx); Benign essential HTN; Other insomnia; Healthcare maintenance; Hypomagnesemia Start: 05-13-2025 End: 05-13-2025 Patient encounter status Zoë Santana MD Work Phone: [facility] Work Phone: Start: 05-13-2025 End: 05-13-2025 ambulatory [facility] Start: 05-13-2025 End: 05-13-2025 Encounter for general adult medical examination without abnormal findings [facility] Start: 04-30-2025 End: 04-30-2025 ambulatory [facility] Start: 04-23-2025 End: 04-23-2025 ambulatory [facility] Start: 04-14-2025 End: 04-14-2025 ambulatory [facility] Start: 04-07-2025 End: 04-07-2025 ambulatory [facility] Start: 04-02-2025 End: 04-02-2025 ambulatory [facility] Facility:[facility] Start: 03-24-2025 End: 03-24-2025 ambulatory [facility] Start: 03-18-2025 End: 03-18-2025 ambulatory [facility] Start: 03-18-2025 End: 03-18-2025 ambulatory [facility] Start: 03-10-2025 End: 03-10-2025 Office outpatient visit 25 minutes Carline Pollack MD [facility] [place] Comment on above: Encounter for postpa rtum visit (Primary Dx); History of gestational diabetes; Counseling for initiation of control method; History of pre-eclampsia; Bilateral lower extremity edema Start: 03-10-2025 End: 03-10-2025 ambulatory CARLINE POLLACK [facility] Start: 03-05-2025 End: 03-05-2025 ambulatory Jaida Bell Facility:[facility] Start: 03-03-2025 End: 03-03-2025 Office outpatient new 45 minutes Zoë Santana MD Work Phone: [facility] Comment on above: Benign essential HTN (Primary Dx); Fatigue, unspecified type; Weight gain; History of gestational diabetes; Anemia, unspecified type; Screening for hyperlipidemia; Attention or concentration deficit; Leg edema; Gastroesophageal reflux disease without esophagitis; psychosis (Multi); Moderate depressive disorder; Anxiety Start: 03-03-2025 End: 03-03-2025 ambulatory ZOË SANTANA [facility] Amb[facility] Start: 03-01-2025 End: 03-01-2025 ambulatory JOSE GUADALUPE MILLS [facility] Start: 03-01-2025 End: 03-01-2025 Subsequent hospital visit by physician Jose Guadalupe Mills MD Work Phone[facility] Obstetrics and Gynecology Comment on above: Severe preeclampsia, third trimester (HHS-HCC) (Primary Dx); Insulin controlled gestational diabetes mellitus (GDM) in second trimester (HHS-HCC) Start: 02-24-2025 End: 02-24-2025 ambulatory Amberly Skalessandro Facility:[facility] Start: 02-19-2025 End: 02-19-2025 ambulatory Jaida Fiore Facility:[facility] Start: 02-16-2025 End: 02-16-2025 ambulatory KELLI MATTHEWS [facility] Start: 02-16-2025 End: 02-16-2025 Subsequent hospital visit by physician Kelli Matthews MD Work Phone: [facility] Obstetrics and Gynecology Start: 02-10-2025 ambulatory [facility] Facility :[facility] Start: 02-08-2025 End: 02-15-2025 Evaluation and management of inpatient Earl Colorado MD Work Phone: [facility] Comment on above: Severe preeclampsia, third trimester (HHS-HCC) (Primary Dx); care following vaginal delivery (HHS-HCC); Depression affecting in third trimester, antepartum ([facility]); Gastroesophageal reflux disease, unspecified whether esophagitis present Start: 02-05-2025 End: 02-05-2025 Subsequent hospital visit by physician Bridger Ovallet200 [facility] Ultrasound 4 [facility] Comment on above: Gestational hyperten sal, second trimester ([facility]); Insulin controlled gestational diabetes mellitus (GDM) in third trimester ([facility]); Gestational hypertension w/o significant proteinuria in 3rd trimester ([facility]) Start: 02-05-2025 End: 02-05-2025 ambulatory [facility] Start: 02-03-2025 ambulatory Amberly Laboy Facilit y:[facility] Start: 01-29-2025 End: 01-29-2025 Subsequent hospital visit by physician Bridger Ovallet200 Ob[facility]yn[facility] Ultrasound 4 [facility] Comment on above: Gestational hyperten sal, second trimester ([facility]); Insulin controlled gestational diabetes mellitus (GDM) in third trimester ([facility]) Start: 01-29-2025 End: 01-29-2025 ambulatory [facility] Start: 01-29-2025 End: 01-29-2025 ambulatory Jaida Macarena Facility:[facility] Start: 01-27-2025 End: 01-27-2025 ambulatory Amberly Laboy Facility:[facility] Start: 01-22-2025 End: 01-22-2025 Subsequent hospital visit by physician Bridger Ovallet200 Ob[facility]ynimg Ultrasound 3 [facility] Comment on above: Gestational hyperten sal, second trimester ([facility]); Insulin controlled gestational diabetes mellitus (GDM) in third trimester ([facility]); Gestational hypertension w/o significant proteinuria in 3rd trimester ([facility]) Start: 01-22-2025 End: 01-22-2025 ambulatory [facility] Start: 01-20-2025 End: 01-20-2025 ambulatory [facility] Ambulatory Start: 01-15-2025 End: 01-15-2025 Subsequent hospital visit by physician Mac Ifmq138 Ob[facility]yn[facility] Ultrasound 3 [facility] Comment on above: Screening, , for anatomic survey (HHS-HCC); Obesity affecting in third trimester (HHS-HCC); Gestational diabetes mellitus (GDM) requiring insulin (HHS-HCC); Gestational hypertension w/o significant proteinuria in 3rd trimester (HHS-HCC) Start: 01-15-2025 End: 01-15-2025 ambulatory EARL Amos [facility] Start: 01-15-2025 End: 01-15-2025 ambulatory EARL Amos [facility] Start: 01-15-2025 End: 01-15-2025 Evaluation and management of inpatient Earl Colorado MD Work Phone: [place] [phone] Obstetrics and Gynecology Start: 01-13-2025 End: 01-13-2025 ambulatory Amberly Laboy Facility:[facility] Start: 01-08-2025 End: 01-08-2025 ambulatory [facility] Start: 01-08-2025 End: 01-08-2025 Evaluation and management of inpatient Earl Colorado MD Work Phone: [place] [phone] Obstetrics and Gynecology Comment on above: Gestational hyperten sal, second trimester ([facility]) (Primary Dx) Start: 01-08-2025 End: 01-08-2025 Subsequent hospital visit by physician Bridger Ovallet200 Ob[facility]ynimg Ultrasound 4 [facility] Comment on above: Screening, , for anatomic survey ([facility]); Gestational hypertension (HHS-HCC); Obesity affecting ([facility]); Gestational diabetes mellitus (GDM); AMA (advanced maternal age) multigravida 35+ (HHS-HCC) Start: 01-08-2025 End: 01-08-2025 ambulatory JOSE GUADALUPE GUPTA [facility] Start: 01-06-2025 End: 01-06-2025 ambulatory Amberly Laboy Facility:[facility] Start: 01-02-2025 End: 01-02-2025 ambulatory Jaida Fiore Facility:[facility] Start: 01-01-2025 End: 01-01-2025 Subsequent hospital visit by physician Bridger Ovallet200 Obgynimg Ultrasound 3 [facility] [place] Comment on above: Screening, , for anatomic survey ([facility]); Encounter for follow-up ultrasound of anatomy; Gestational diabetes requiring insulin (HHS-HCC); AMA (advanced maternal age) multigravida 35+ (HHS-HCC); Obesity affecting (HHS-HCC) Start: 01-01-2025 End: 01-01-2025 ambulatory [facility] Start: 12-23-2024 End: 12-25-2024 Evaluation and management of inpatient Daisy Crews MD Work Phone: [facility] Comment on above: Insulin controlled g estational diabetes mellitus (GDM) in second trimester ([facility]) (Primary Dx); Hyperglycemia in ([facility]-HCC); Gestational hypertension, second trimester ([facility]) Start: 12-17-2024 End: 12-17-2024 ambulatory Leticia Bergman [facility] Facility:[facility] Start: 12-17-2024 End: 12-17-2024 [facility] Start: 12-03-2024 End: 12-03-2024 ambulatory Jaida Fiore Facility:[facility] Start: 12-01-2024 End: 12-01-2024 ambulatory Amberly Laboy Facility:[facility] Start: 11-25-2024 End: 11-25-2024 Initial care visit Sugey Pride MD Work Phone: [facility] Comment on above: History of d elivery (Primary Dx) Start: 11-25-2024 End: 11-25-2024 ambulatory SUGEY PRIDE [facility] Start: 11-21-2024 End: 11-21-2024 ambulatory Jaida Fiore Facility:[facility] Start: 11-18-2024 End: 11-18-2024 ambulatory Leticia [facility] Facility:[facility] Start: 11-14-2024 End: 11-14-2024 ambulatory MAJOR D HERNANDEZ [facility] Start: 11-13-2024 End: 11-13-2024 Emergency department patient visit Major Mejia Facility:[facility] Start: 10-27-2024 End: 10-27-2024 ambulatory MARYANA WILLIS [facility] Start: 10-24-2024 End: 10-24-2024 ambulatory [facility] Start: 10-24-2024 End: 10-24-2024 ambulatory Jaida Macarena Facility:[facility] Start: 10-15-2024 End: 10-15-2024 ambulatory Mayela GRULLON Facility:[facility] Start: 10-13-2024 End: 10-14-2024 ambulatory Mayela GRULLON Facility:[facility] Start: 10-10-2024 End: 10-10-2024 ambulatory Amberly Lopez Alissa Facility:[facility] Start: 10-09-2024 End: 10-10-2024 ambulatory Christen Posada Facility:[facility] Start: 10-09-2024 End: 10-09-2024 Emergency department patient visit Santivandana Shaver Facility:[facility] Start: 10-01-2024 ambulatory Leticia [facility] Start: 09-30-2024 End: 09-30-2024 [facility] Start: 09-25-2024 End: 09-25-2024 ambulatory Leticia [facility] Start: 09-25-2024 End: 09-25-2024 ambulatory Leticia [facility] Facility:[facility] Start: 09-02-2024 End: 09-02-2024 ambulatory Leticia Pacheco [facility] Start: 09-02-2024 End: 09-02-2024 ambulatory Leticia Pacheco [facility] Facility:[facility] Start: 08-06-2024 End: 08-06-2024 Emergency department patient visit Leticia Pacheco [facility] Facility:[facility] Start: 07-14-2024 End: 07-14-2024 ambulatory Let[facility] Start: 07-09-2024 End: 07-09-2024 ambulatory [facility] Start: 06-30-2024 End: 06-30-2024 Emergency department patient visit Leticia Bergman [facility] Facility:[facility] Start: 06-11-2024 [facility] Start: 06-11-2024 End: 06-11-2024 Emergency department patient visit Leticia Bergman [facility] Facility:[facility] Start: 05-21-2024 ambulatory [facility] Fa cility:[facility] Start: 03-03-2024 End: 03-03-2024 ambulatory [facility] Work Phone: Start: 03-03-2024 End: 03-03-2024 Patient encounter procedure [facility] Work Phone: Start: 02-22-2024 End: 02-22-2024 Emergency department patient visit [facility] Work Phone: Start: 12-05-2023 End: 12-05-2023 Emergency department patient visit [facility] Work Phone: Start: 12-04-2023 End: 12-04-2023 Emergency department patient visit [facility] Work Phone: Start: 11-17-2023 End: 11-17-2023 Emergency department patient visit [facility] Work Phone: Start: 10-25-2023 End: 10-25-2023 Emergency department patient visit [facility] Work Phone: Start: 09-05-2023 End: 09-05-2023 Emergency department patient visit [facility] Work Phone: Start: 06-06-2023 Emergency department patient visit STU JOHNSON Facility:[facility] Start: 06-05-2023 End: 06-05-2023 Emergency department patient visit [facility] Work Phone: Start: 05-17-2023 End: 05-17-2023 Emergency department patient visit [facility] Work Phone: Start: 03-14-2023 ambulatory NAYAROGE GODFREY LILI Facility:B Start: 01-21-2023 End: 01-21-2023 Emergency department patient visit No Primary Care Physician [facility] Start: 12-14-2022 End: 12-14-2022 Emergency department patient visit No Primary Care Physician [facility] Start: 12-03-2022 End: 12-03-2022 Emergency department patient visit STU VIJI Facility:[facility] Start: 10-26-2022 End: 10-26-2022 Emergency department patient visit No Primary Care Physician [facility] Start: 10-23-2022 End: 10-23-2022 Patient encounter procedure No Primary Care Physician [facility] Start: 10-07-2022 End: 10-11-2022 Emergency department patient visit PHYSICIAN NO [facility] Start: 09-06-2022 End: 09-06-2022 Emergency department patient visit DR SALIMA CONSTANTINO MD Facility:[facility] Start: 09-06-2022 End: 09-06-2022 Emergency department patient visit DR SALIMA CONSTANTINO MD [facility] Start: 08-18-2022 End: 08-18-2022 Emergency department patient visit [facility] Start: 03-30-2019 End: 03-30-2019 Emergency department patient visit [place] [facility] Start: 03-26-2019 End: 03-26-2019 [facility] Start: 02-08-2019 End: 02-08-2019 Emergency department patient visit [facility] Start: 02-04-2019 End: 02-05-2019 Emergency department patient visit [facility] Start: 02-02-2019 End: 02-02-2019 Emergency department patient visit GLEN HAMILTON [facility] Start: 12-22-2018 End: 12-22-2018 Emergency department patient visit MAYCOL CASAS [facility] Start: 10-07-2018 Patient encounter procedure JOSEPH RENTERIA [facility] Start: 10-07-2018 End: 10-07-2018 Office outpatient visit 15 minutes Joseph Renteria Work Phone: [facility] PHOTOGRAPHIC AIDE [facility]ANDY Comment on above: Pelvic pain (Primary Dx); PCOS (polycystic ovarian syndrome); Amenorrhea Start: 09-14-2018 End: 09-14-2018 Emergency department patient visit EHSAN Ortiz [facility] Start: 09-13-2018 Patient encounter procedure JOSEPH J [facility] Start: 09-03-2018 End: 09-03-2018 Patient encounter procedure Freddie Tinoco [facility] Start: 09-03-2018 End: 09-08-2018 Evaluation and management of inpatient FREDDIE TINOCO [facility] Start: 09-03-2018 End: 09-03-2018 [facility] Start: 09-03-2018 End: 09-08-2018 Evaluation and management of inpatient Juan Pastor Work Phone: [facility] Oncology/Surgery Comment on above: Acute pyelonephritis (Primary Dx); Nausea and vomiting, intractability of vomiting not specified, unspecified vomiting type; Crohn's disease of small and large intestines with complication (HCC) Start: 08-31-2018 End: 08-31-2018 Emergency department patient visit [facility] Start: 08-12-2018 End: 08-12-2018 Emergency department patient visit Jade Oquendo Facility:[place] Start: 07-31-2018 End: 07-31-2018 Emergency department patient visit BRITTANY BURCH [facility] Start: 07-26-2018 End: 07-26-2018 Emergency department patient visit [facility] Start: 07-23-2018 End: 07-23-2018 Emergency department patient visit [facility] Start: 07-09-2018 End: 07-09-2018 Emergency department patient visit JAGJIT SALAZAR [facility] Start: 06-05-2018 End: 06-05-2018 ambulatory UNKNOWN PROVIDER Facility:[facility] Start: 04-27-2018 End: 04-27-2018 Emergency department patient visit [facility] Start: 03-03-2018 End: 03-03-2018 Patient encounter procedure JOSEPH J [facility] Start: 02-27-2018 End: 02-27-2018 Patient encounter Swapna Izquierdo Facility:[place] Start: 02-19-2018 Patient encounter procedure JOSEPH RENTERIA [facility] Start: 02-16-2018 End: 02-16-2018 Emergency department patient visit [facility] Start: 02-15-2018 Patient encounter procedure JOSEPHNAA RENTERIA [facility] Start: 02-12-2018 Patient encounter procedure JOSEPHNAA RENTERIA [facility] Start: 01-27-2018 End: 01-27-2018 Patient encounter procedure LONA CONSTANTINO [facility] Start: 12-18-2017 End: 12-18-2017 Emergency department patient visit Nirmal Maddox Facility:[place] Start: 11-15-2017 Patient encounter procedure JOSEPHNAA RENTERIA [facility] Start: 11-15-2017 Patient encounter procedure JOSEPHNAA RENTERIA [facility] Start: 10-25-2017 End: 10-27-2017 Patient encounter procedure ASCENCION DUBON [facility] Start: 10-15-2017 End: 10-15-2017 Emergency department patient visit [facility] Start: 09-03-2017 End: 09-03-2017 Emergency department patient visit [facility] Start: 08-28-2017 Ambulatory JAYDEN Meli PÉREZ [facility] Start: 05-11-2017 End: 05-11-2017 Emergency department patient visit MAYELA ELLIOTT [facility] Procedures Date Procedure Procedure Detail Performing Clinician Start: 03-10-2025 Basic metabolic panel calcium total Suzette Galindo MD Work Phone: Start: 03-10-2025 Glucose quantitative blood xcpt reagent strip Carline Pollack MD Work Phone: Start: 03-05-2025 Lipid 1996 panel - Serum or Plasma Carline Pollack MD Work Phone: Start: 03-01-2025 Glucose quantitative blood xcpt reagent strip Jose Guadalupe Mills MD Work Phone: Start: 02-16-2025 Blood count complete auto&auto difrntl wbc Dhara Bautista [employer] TECHNICIAN-TRAILER RENTAL CLERK Work Phone: Start: 02-16-2025 US Abdomen Hanane Malagon MD Work Phone: Start: 02-13-2025 Antibody aury He MD MPH Work Phone: Start: 02-12-2025 Glucose quantitative blood xcpt reagent strip Jose Guadalupe Gupta MD Work Phone: Start: 02-12-2025 Glucose quantitative blood xcpt reagent strip Clair Castro MD Work Phone: Start: 02-11-2025 Glucose quantitative blood xcpt reagent strip Clair Castro MD Work Phone: Start: 02-11-2025 Glucose quantitative blood xcpt reagent strip Clair Castro MD Work Phone: Start: 02-11-2025 End: 02-11-2025 Glucose quantitative blood xcpt reagent strip Clair Castro MD Work Phone: Start: 02-11-2025 Glucose quantitative blood xcpt reagent strip Clair Castro MD Work Phone: Start: 02-11-2025 Glucose quantitative blood xcpt reagent strip Clair Castro MD Work Phone: Start: 02-11-2025 Glucose quantitative blood xcpt reagent strip Clair Castro MD Work Phone: Start: 02-11-2025 Glucose quantitative blood xcpt reagent strip Clair Castro MD Work Phone: Start: 02-11-2025 Blood typing serologic rh (d) Ramirez Tucker MD Work Phone: Start: 02-11-2025 PREPARE RBC Ramirez Tucker MD Work Phone: Start: 02-10-2025 Glucose quantitative blood xcpt reagent strip Clair Castro MD Work Phone: Start: 02-10-2025 Glucose quantitative blood xcpt reagent strip Clair Castro MD Work Phone: Start: 02-10-2025 Glucose quantitative blood xcpt reagent strip Clair Castro MD Work Phone: Start: 02-10-2025 Glucose quantitative blood xcpt reagent strip Clair Castro MD Work Phone: Start: 02-10-2025 Mra head w/o contrst material Fide Deleon MD Work Phone: Start: 02-09-2025 End: 02-09-2025 Comprehensive metabolic panel Elyssa He MD Work Phone: Start: 02-09-2025 Iaad ia hiv-1 ag w/hiv-1 & hiv-2 antbdy single Elva He MD MPH Work Phone: Start: 02-09-2025 Antibody rubella Elva He MD MPH Work Phone: Start: 02-09-2025 Comprehensive metabolic panel Dhara Bautista DARKROOM TECHNICIAN-TRAILER RENTAL CLERK Work Phone: Start: 02-08-2025 Cul prsmptv pthgnc organism scrn w/colony estimj Fide Deleon MD Work Phone: Start: 02-08-2025 Glucose quantitative blood xcpt reagent strip Clair Castro MD Work Phone: Start: 02-08-2025 Influenza virus A and B and SARS-CoV-2 (COVID-19) identified in Respiratory specimen by JYOTI with probe detection Fide Deleon MD Work Phone: Start: 02-08-2025 Creatinine other source Dhara Bautista APR N-TRAILER RENTAL CLERK Work Phone: Start: 02-08-2025 Blood typing serologic rh (d) Dhara Bautista DARKROOM TECHNICIAN-TRAILER RENTAL CLERK Work Phone: Start: 02-08-2025 End: 02-08-2025 Chloride bld Dhara Bautista DARKROOM TECHNICIAN-CN P Work Phone: Start: 02-08-2025 Iaad ia hepatitis b surface antigen Elva He MD MPH Work Phone: Start: 02-05-2025 biophysical profile w/o non-stress testing Jose Guadalupe Gupta MD Work Phone: Start: 01-22-2025 Glucose quantitative blood xcpt reagent strip Interface Unspecifiedprovider Work Phone: Start: 01-22-2025 biophysical profile w/o non-stress testing Jose Guadalupe Gupta MD Work Phone: Start: 01-15-2025 biophysical profile w/o non-stress testing Earl Colorado MD Work Phone: Start: 01-15-2025 Glucose quantitative blood xcpt reagent strip Earl Colorado MD Work Phone: Start: 01-08-2025 End: 01-08-2025 Comprehensive metabolic panel Vanesa L [facility] DARKROOM TECHNICIAN-Linguastat Work Phone: Start: 01-08-2025 Urnls dip stick/tablet rgnt non-auto w/o micrscp Vanesa Simon [employer] DARKROOM TECHNICIAN-TRAILER RENTAL CLERK Work Phone: Start: 01-01-2025 Us preg uterus real time f/u trnsabdl per fetus Earl Colorado MD Work Phone: Start: 01-01-2025 Glucose quantitative blood xcpt reagent strip Interface Unspecifiedprovider Work Phone: Start: 12-25-2024 Glucose quantitative blood xcpt reagent strip Earl Colorado MD Work Phone: Start: 12-25-2024 Glucose quantitative blood xcpt reagent strip Earl Colorado MD Work Phone: Start: 12-25-2024 Glucose quantitative blood xcpt reagent strip Earl Colorado MD Work Phone: Start: 12-24-2024 Glucose quantitative blood xcpt reagent strip Earl Colorado MD Work Phone: Start: 12-24-2024 Glucose quantitative blood xcpt reagent strip Earl Colorado MD Work Phone: Start: 12-24-2024 Glucose quantitative blood xcpt reagent strip Eral Colorado MD Work Phone: Start: 12-24-2024 Glucose quantitative blood xcpt reagent strip Earl Colorado MD Work Phone: Start: 12-24-2024 biophysical profile w/o non-stress testing Celena Solis DARKROOM TECHNICIAN-TRAILER RENTAL CLERK Work Phone: Start: 12-24-2024 Glucose quantitative blood xcpt reagent strip Earl Colorado MD Work Phone: Start: 12-23-2024 Glucose quantitative blood xcpt reagent strip Earl Colorado MD Work Phone: Start: 12-23-2024 Urnls dip stick/tablet rgnt non-auto w/o micrscp Celena Solis DARKROOM TECHNICIAN-TRAILER RENTAL CLERK Work Phone: Start: 12-23-2024 Glucose quantitative blood xcpt reagent strip Earl Colorado MD Work Phone: Start: 12-23-2024 Blood typing serologic rh (d) Celena Solis DARKROOM TECHNICIAN-TRAILER RENTAL CLERK Work Phone: Start: 12-23-2024 End: 12-23-2024 Comprehensive metabolic panel Celena Solis DARKROOM TECHNICIAN-TRAILER RENTAL CLERK Work Phone: Start: 12-23-2024 Urnls dip stick/tablet rgnt non-auto w/o micrscp Laney Patricio DARKROOM TECHNICIAN-TRAILER RENTAL CLERK Work Phone: Start: 12-23-2024 Glucose quantitative blood xcpt reagent strip Daisy Crwes MD Work Phone: Start: 02-22-2024 Computed tomography of abdomen and pelvis with intravenous contrast Start: 12-05-2023 Computed tomography of abdomen and pelvis with intravenous contrast Start: 11-17-2023 Plain X-ray of shoulder Start: 11-17-2023 CT cervical spine without contrast Start: 11-17-2023 CT of chest and abdomen Start: 11-17-2023 CT of head without contrast Start: 10-25-2023 Computed tomography of abdomen and pelvis with intravenous contrast Start: 09-05-2023 Computed tomography of abdomen and pelvis with intravenous contrast Start: 06-05-2023 Plain chest X-ray Start: 05-17-2023 Plain chest X-ray Start: 05-17-2023 SARS-CoV-2 & FLU Antigen (Rapid) Start: 01-21-2023 Computed tomography of abdomen and pelvis with intravenous contrast No Primary Care Physician Start: 12-14-2022 Computed tomography of abdomen and pelvis with intravenous contrast No Primary Care Physician Start: 08-18-2022 Computed tomography of abdomen and pelvis with contrast Start: 03-26-2019 Culture bacterial quanttative colony count urine EHSAN JAQUEZ Start: 03-26-2019 Urnls dip stick/tablet reagent auto microscopy EHSAN JAQUEZ Start: 03-26-2019 Assay of lactate EHSAN JAQUEZ Start: 03-26-2019 Assay of lipase EHSAN JAQUEZ Start: 03-26-2019 Blood count complete auto&auto difrntl wbc EHSAN JAQUEZ Start: 03-26-2019 Comprehensive metabolic panel EHSAN JAQUEZ Start: 03-26-2019 Gonadotropin chorionic qualitative EHSAN JAQUEZ Start: 03-26-2019 SALINE LOCK IV EHSAN JAQUEZ Start: 02-08-2019 Urinalysis microscopic only Start: 02-08-2019 Urine test visual color cmprsn meths Start: 02-08-2019 Urnls dip stick/tablet rgnt auto w/o microscopy Start: 02-08-2019 SALINE LOCK IV Start: 02-08-2019 Assay of magnesium Start: 02-08-2019 Blood count complete auto&auto difrntl wbc Start: 02-08-2019 Sedimentation rate rbc automated Start: 02-04-2019 Blood occult peroxidase actv qual feces 1 deter Start: 02-04-2019 C DIFF CONTACT ISOLATION Start: 02-04-2019 Cul bact stool aerobic isol salmonella&shigell Start: 02-04-2019 Drug screen class list a Start: 02-04-2019 Toxin/antitoxin assay tissue culture Start: 02-04-2019 Urinalysis microscopic only Start: 02-04-2019 Urine test visual color cmprsn meths Start: 02-04-2019 Urnls dip stick/tablet rgnt auto w/o microscopy Start: 02-04-2019 Assay of lactate Start: 02-04-2019 Blood count complete automated Start: 02-04-2019 Comprehensive metabolic panel Start: 10-07-2018 End: 10-07-2018 Choriogonadotropin ( test) [Presence] in Urine Joseph Renteria Work Phone: Start: 10-07-2018 End: 10-07-2018 Removal of intrauterine device Joesph Renteria Work Phone: Start: 09-14-2018 Culture bacterial quanttative colony count urine EHSAN JAQUEZ Start: 09-14-2018 Microscopic urinalysis EHSAN JAQUEZ Start: 09-14-2018 Urnls dip stick/tablet rgnt auto w/o microscopy EHSAN JAQUEZ Start: 09-14-2018 Assay of amylase EHSAN JAQUEZ Start: 09-14-2018 Assay of lipase EHSAN JAQUEZ Start: 09-14-2018 Blood count complete auto&auto difrntl wbc EHSAN JAQUEZ Start: 09-14-2018 Comprehensive metabolic panel EHSAN JAQUEZ Start: 09-14-2018 CULTURE BLOOD #1 EHSAN JAQUEZ Start: 09-14-2018 Gonadotropin chorionic qualitative EHSAN JAQUEZ Start: 09-14-2018 LACTIC ACID, PLASMA EHSAN JAQUEZ Start: 09-06-2018 End: 09-06-2018 Radiologic exam chest single view Arianne Vargas Work Phone: Start: 09-05-2018 End: 09-05-2018 Basic metabolic 1998 panel - Serum or Plasma Arianne Vargas Work Phone: Start: 09-05-2018 End: 09-05-2018 Complete blood count (hemogram) panel - Blood by Automated count Arianne Vargas Work Phone: Start: 09-04-2018 End: 09-04-2018 Complete blood count (hemogram) panel - Blood by Automated count Chase Parham Work Phone: Start: 09-04-2018 End: 09-04-2018 Comprehensive metabolic 2000 panel - Serum or Plasma Chase Parham Work Phone: Start: 09-03-2018 End: 09-03-2018 Clostridium difficile toxin assay Chase Parham Work Phone: Start: 09-03-2018 End: 09-03-2018 Bacteria identified in Blood by Culture Chase Parham Work Phone: Start: 09-03-2018 End: 09-03-2018 Blood gas analysis Stu Parisi Heladio Work Phone: Start: 09-03-2018 End: 09-03-2018 Lactate [Moles/volume] in Serum or Plasma Joy Argentina Timi Work Phone: Start: 09-03-2018 End: 09-03-2018 Ct abdomen & pelvis w/contrast material Joy Argentina Timi Work Phone: Start: 09-03-2018 End: 09-03-2018 Choriogonadotropin ( test) [Presence] in Urine Joy Argentina Timi Work Phone: Start: 09-03-2018 End: 09-03-2018 Urinalysis Joy Argentina Timi Work Phone: Start: 09-03-2018 End: 09-03-2018 URINE CLEMENT CONTAINER Triage Protocol Renuka rgency Start: 09-03-2018 End: 09-03-2018 Basic metabolic 2000 panel - Serum or Plasma Joy Argentina Timi Work Phone: Start: 09-03-2018 End: 09-03-2018 Complete blood count with white cell differential, automated Joy Argentina Timi Work Phone: Start: 09-03-2018 End: 09-03-2018 Complete blood count with white cell differential, manual Joy Argentina Timi Work Phone: Start: 09-03-2018 End: 09-03-2018 Hepatic function 2000 panel - Serum or Plasma Joy Argentina Timi Work Phone: Start: 09-03-2018 End: 09-03-2018 LIGHT BLUE TOP Triage Protocol Bertha gency Start: 09-03-2018 End: 09-03-2018 LIGHT GREEN TOP Triage Protocol Bertha gency Start: 09-03-2018 End: 09-03-2018 Lipase [Enzymatic activity/volume] in Serum or Plasma Joy Capellan Work Phone: Start: 09-03-2018 End: 09-03-2018 PINK TOP Triage Protocol Bertha genelen Start: 09-03-2018 End: 09-03-2018 RAINBOW DRAW Triage Protocol Bertha shivam Start: 08-31-2018 Ct abdomen & pelvis w/o contrast material EHSAN JAQUEZ Start: 08-31-2018 Blood count complete auto&auto difrntl wbc EHSAN JAQUEZ Start: 08-31-2018 Comprehensive metabolic panel EHSAN JAQUEZ Start: 08-31-2018 Culture bacterial quanttative colony count urine EHSAN JAQUEZ Start: 08-31-2018 Microscopic urinalysis EHSAN JAQUEZ Start: 08-31-2018 Urnls dip stick/tablet rgnt auto w/o microscopy EHSAN JAQUEZ Start: 06-05-2018 Cytopathology procedure, preparation of smear, genital source UNKNOWN PROVIDER Start: 06-05-2018 HUMAN PAPILLOMA VIRUS UNKNOWN PROVIDER Start: 06-05-2018 Microscopic observation [Identifier] in Cervix by Cyto stain Sugey Pride MD Work Phone: Start: 02-16-2018 HOLTER MONITOR 24 HOUR Start: 02-16-2018 ORTHOSTATIC BLOOD PRESSURE AND PULSE Start: 02-16-2018 INSERT PERIPHERAL IV Start: 02-16-2018 VITAL SIGNS Start: 02-16-2018 Basic metabolic 2000 panel Start: 02-16-2018 CBC WITH AUTO DIFFERENTIAL Start: 02-16-2018 Troponin I.cardiac mass conc Start: 02-16-2018 EKG 12-LEAD Start: 10-22-2017 Microscopic observation [Identifier] in Cervix by Cyto stain Daisy Crews MD Work Phone: Start: 07-25-2017 Colonoscopy Joseph Deny Start: 01-15-2017 History of cholecystectomy History of cholecystectomy Sugey Pride MD Work Phone: SARS-CoV-2 & FLU Ant igen (Rapid) No Primary Care Physician SARS-CoV-2 & FLU Ant igen (Rapid) No Primary Care Physician Plan of Treatment Date Care Activity Detail Author Start: 2064 RSV Immunization for Adults (1 - 1-dose 75+ series) RSV Immunization for Adults (1 - 1-dose 75+ series) [facility] Start: 2039 Zoster Vaccines (1 of 2) Zoster Vaccines (1 of 2) [facility] Start: 2038 Zoster Vaccines (1 of 2) Zoster Vaccines (1 of 2) [facility] Start: 03-05-2030 Lipid panel Lipid Panel [facility] Start: 03-10-2028 Diabetes mellitus screening Diabetes Screening [facility] Start: 03-01-2028 Diabetes mellitus screening Diabetes Screening [facility] Start: 02-13-2028 Diabetes mellitus screening Diabetes Screening [facility] Start: 03-05-2026 Lipid panel Lipid Panel [facility] Start: 07-06-2025 Influenza vaccination [facility] Start: 06-24-2025 End: 06-24-2025 Patient encounter procedure 06/24/2025 1:45 PM EDT Office Visit [facility] [address] [place] [address] Zoë Santana MD [address] [place] [address] [facility] Start: 06-05-2025 Hemoglobin A1c measurement Diabetes: Hemoglobin A1C [facility] Start: 05-27-2025 End: 05-27-2025 Patient encounter procedure 05/27/2025 8:00 AM EDT Office Visit [facility] [address] [place] [phone] Maycol Dykes MD [address] [facility] [place] [address] [facility] Start: 05-26-2025 End: 05-26-2025 Clinical Support 05/26/2025 3:00 PM EDT Clinical Support [facility] [address] [address] [facility] Start: 05-13-2025 End: 05-13-2026 Comprehensive metabolic 2000 panel - Serum or Plasma Comprehensive Metabolic Panel Lab Routine Type 2 diabetes mellitus without complication, with long-term current use of insulin Expected: 05/13/2025 (Approximate), Expires: 05/13/2026 [facility] Service Area Work Phone: Comment on above: Expected: 05/13/2025 (Approximate), Expi res: 05/13/2026 Start: 05-13-2025 End: 05-13-2026 Hemoglobin A1c/Hemoglobin.total in Blood Hemoglobin A1C Lab Routine Type 2 diabetes mellitus without complication, with long-term current use of insulin Expected: 05/13/2025 (Approximate), Expires: 05/13/2026 [facility] Work Phone: Comment on above: Expected: 05/13/2025 (Approximate), Expi res: 05/13/2026 Start: 05-13-2025 End: 05-13-2026 Magnesium [Mass/volume] in Serum or Plasma Magnesium Lab Routine Hypomagnesemia Expected: 05/13/2025 (Approximate), Expires: 05/13/2026 [facility] Work Phone: Comment on above: Expected: 05/13/2025 (Approximate), Expi res: 05/13/2026 Start: 05-13-2025 End: 05-13-2026 Microalbumin/Creatinin e [Mass Ratio] in Urine Albumin-Creatinine Ratio, Urine Random Lab Routine Type 2 diabetes mellitus without complication, with long-term current use of insulin Expected: 05/13/2025 (Approximate), Expires: 05/13/2026 [facility] Work Phone: Comment on above: Expected: 05/13/2025 (Approximate), Expi res: 05/13/2026 Start: 03-17-2025 End: 03-17-2025 Patient encounter procedure 03/17/2025 11:15 AM EDT Office Visit [facility] [address] [place] [address] Zoë Santana MD [address] [place] [address] [facility] Start: 03-12-2025 End: 03-12-2025 Patient encounter procedure 03/12/2025 1:00 PM EDT Office Visit [facility] [address] [place] [phone] [place] [address] [place] [address] [facility] Start: 03-03-2025 End: 03-03-2026 CBC W Auto Differential panel - Blood CBC and Auto Differential Lab Routine Fatigue, unspecified type Anemia, unspecified type Expected: 03/03/2025 (Approximate), Expires: 03/03/2026 [facility] Work Phone: Comment on above: Expected: 03/03/2025 (Approximate), Expi res: 03/03/2026 Start: 03-03-2025 End: 03-03-2026 Comprehensive metabolic 2000 panel - Serum or Plasma Comprehensive Metabolic Panel Lab Routine Fatigue, unspecified type Benign essential HTN Weight gain History of gestational diabetes Expected: 03/03/2025 (Approximate), Expires: 03/03/2026 [facility] Service Area Work Phone: Comment on above: Expected: 03/03/2025 (Approximate), Expi res: 03/03/2026 Start: 03-03-2025 End: 03-03-2026 Hemoglobin A1c/Hemoglobin.total in Blood Hemoglobin A1C Lab Routine History of gestational diabetes Expected: 03/03/2025 (Approximate), Expires: 03/03/2026 [facility] Work Phone: Comment on above: Expected: 03/03/2025 (Approximate), Expi res: 03/03/2026 Start: 03-03-2025 End: 03-03-2026 Lipid 1996 panel - Serum or Plasma Lipid Panel Lab Routine Screening for hyperlipidemia Expected: 03/03/2025 (Approximate), Expires: 03/03/2026 [facility] Work Phone: Comment on above: Expected: 03/03/2025 (Approximate), Expi res: 03/03/2026 Start: 03-03-2025 End: 03-03-2026 Magnesium [Mass/volume] in Serum or Plasma Magnesium Lab Routine Fatigue, unspecified type Expected: 03/03/2025 (Approximate), Expires: 03/03/2026 [facility] Work Phone: Comment on above: Expected: 03/03/2025 (Approximate), Expi res: 03/03/2026 Start: 03-03-2025 End: 03-03-2026 TSH with reflex to Free T4 if abnormal TSH with reflex to Free T4 if abnormal Lab Routine Fatigue, unspecified type Weight gain Expected: 03/03/2025 (Approximate), Expires: 03/03/2026 [facility] Work Phone: Comment on above: Expected: 03/03/2025 (Approximate), Expi res: 03/03/2026 Start: 03-03-2025 End: 03-03-2026 Zinc [Mass/volume] in Serum or Plasma Zinc Lab Routine Fatigue, unspecified type Expected: 03/03/2025 (Approximate), Expires: 03/03/2026 [facility] Work Phone: Comment on above: Expected: 03/03/2025 (Approximate), Expi res: 03/03/2026 Start: 03-03-2025 End: 03-03-2025 Patient encounter procedure 03/03/2025 11:30 AM EDT Office Visit [facility] [address] [place] [phone] Zoë Santana MD [address] [place] [address] [facility] Start: 03-02-2025 End: 03-02-2025 Clinical Support [facility] Start: 02-26-2025 End: 02-26-2025 Patient encounter procedure [facility] Start: 02-23-2025 End: 02-23-2025 Clinical Support [facility] Start: 02-20-2025 End: 02-20-2025 Clinical Support 02/20/2025 10:00 AM EDT Clinical Support Critical access hospital [address] [place] [phone] Critical access hospital Start: 02-19-2025 End: 02-19-2025 Patient encounter procedure [facility] Start: 02-16-2025 End: 02-16-2025 Clinical Support [facility] Start: 02-12-2025 End: 02-12-2025 Patient encounter procedure [facility] Start: 02-09-2025 End: 02-09-2025 Clinical Support [facility] Start: 02-05-2025 End: 02-05-2025 Patient encounter procedure [facility] Start: 02-02-2025 End: 02-02-2025 Clinical Support [facility] Start: 01-29-2025 End: 01-29-2025 Patient encounter procedure [facility] Start: 01-26-2025 End: 01-26-2025 Clinical Support [facility] Start: 01-22-2025 End: 01-22-2025 Patient encounter procedure [facility] Start: 01-20-2025 End: 01-20-2025 Clinical Support [facility] Start: 01-16-2025 Orders Only 01/16/2025 Orders Only Critical access hospital [address] [place] [phone] [place] [address] [place] [address] Gestational hypertension, second trimester ([facility] Critical access hospital 4 Comment on above: Gestational hypertension, second trimest er ([facility] Start: 01-15-2025 End: 01-15-2025 Patient encounter procedure [facility] Start: 01-09-2025 Orders Only 01/09/2025 Orders Only [place] [address] [place] [address] [place] [address] [place] [address] Gestational hypertension, second trimester ([facility]) Critical access hospital 4 Comment on above: Gestational hypertension, second trimest er ([facility]) Start: 01-08-2025 End: 01-08-2026 Creatinine [Mass/volume] in 24 hour Urine Creatinine, 24 Hour Urine Lab Routine Gestational hypertension, second trimester ([facility]) Expected: 01/08/2025 (Approximate), Expires: 01/08/2026 [facility] Work Phone: Comment on above: Expected: 01/08/2025 (Approximate), Expi res: 01/08/2026 Start: 01-08-2025 End: 01-08-2026 Protein [Mass/volume] in 24 hour Urine Protein, Total 24 Hour Urine Lab Routine Gestational hypertension, second trimester ([facility]) Expected: 01/08/2025 (Approximate), Expires: 01/08/2026 [facility] Work Phone: Comment on above: Expected: 01/08/2025 (Approximate), Expi res: 01/08/2026 Start: 01-06-2025 End: 01-06-2025 ambulatory 01/06/2025 1:30 PM EST Initial [facility] [address] [place] [phone] [place] [address] [place] [address] [facility] Start: 01-06-2025 End: 01-06-2025 Patient encounter procedure 01/06/2025 12:30 PM EST Appointment [facility] [address] [place] [address] [facility] Start: 01-01-2025 End: 01-01-2025 ambulatory 01/01/2025 1:00 PM EST Initial [facility] [address] [place] [address] [place] [address] [place] [address] [facility] Start: 12-25-2024 End: 12-25-2024 Patient encounter procedure 12/25/2024 11:30 AM EST Routine [address] [place] [address] [facility] Start: 07-06-2024 COVID-19 Vaccine ( season) COVID-19 Vaccine ( season) [facility] Start: 07-06-2024 Influenza vaccination Influenza Vaccine (#1) [facility] Start: 02-22-2024 [facility] Start: 12-05-2023 [facility] Start: 11-17-2023 [facility] Start: 10-25-2023 [facility] Start: 09-05-2023 [facility] Start: 09-05-2023 Enteric precautions [facility] Start: 06-05-2021 Screening for malignant neoplasm of cervix [facility] Start: 10-22-2020 Screening for malignant neoplasm of cervix [facility] Start: 2019 Screening for malignant neoplasm of cervix HPV/Cotest [facility] Start: 02-10-2019 End: 02-10-2019 Ambulatory 02/10/2019 Office Visit Gastroenterology Lupe Vo MD [address] [facility] [place] [address] Division of Gastroenterology and Hepatology [place] Start: 10-22-2018 Screening for malignant neoplasm of cervix PAP SMEAR DISCUSSION [facility] Work Phone: Start: 10-07-2018 End: 10-07-2019 HCG ( test) Ql BETA HCG, QUANT, BLOOD Routine Amenorrhea Expected: 10/07/2018, Expires: 10/07/2019 [facility] Work Phone: Comment on above: Expected: 10/07/2018, Expires: 9 Start: 07-25-2018 Colonoscopy COLONOSCOPY [facility] Work Phone: Start: 07-06-2018 Influenza vaccination [facility] Start: 2011 DTaP/Tdap/Td Vaccines (1 - Tdap) DTaP/Tdap/Td Vaccines (1 - Tdap) [facility] Start: 2010 DTaP/Tdap/Td Vaccines (1 - Tdap) DTaP/Tdap/Td Vaccines (1 - Tdap) [facility] Start: 2010 Screening for malignant neoplasm of cervix HPV/Cotest [facility] Start: 2009 Screening for malignant neoplasm of cervix HPV/Cotest [facility] Start: 2008 DTaP/Tdap/Td Vaccines (1 - Tdap) DTaP/Tdap/Td Vaccines (1 - Tdap) [facility] Start: 2008 Hepatitis B Vaccines (1 of 3 - 19+ 3-dose series) Hepatitis B Vaccines (1 of 3 - 19+ 3-dose series) [facility] Start: 2007 Diabetes mellitus screening Diabetes Screening [facility] Start: 2007 Hepatitis B Vaccines (1 of 3 - 19+ 3-dose series) Hepatitis B Vaccines (1 of 3 - 19+ 3-dose series) [facility] Start: 2007 Hepatitis C screening Hepatitis C Screening [facility] Start: 2007 PNEUMOCOCCAL VACCINE SERIES (1 of 3 - PCV13) PNEUMOCOCCAL VACCINE SERIES (1 of 3 - PCV13) [facility] Work Phone: Start: 2007 Pneumococcal Vaccine: Pediatrics and At-Risk Adult Patients (1 of 2 - PCV) Pneumococcal Vaccine: Pediatrics and At-Risk Adult Patients (1 of 2 - PCV) [facility] Start: 2007 Third diphtheria, tetanus and acellular pertussis (DTaP) vaccination TDAP (ADULT) [facility] Work Phone: Start: 2006 Hepatitis C screening Hepatitis C Screening [facility] Start: 2006 Tetanus vaccination TETANUS [facility] Work Phone: Start: 2002 Varicella vaccination Varicella Vaccines (1 of 2 - 13+ 2-dose series) [facility] Start: 2001 Depression Monitoring Depression Monitoring [facility] Start: 2001 Varicella vaccination Varicella Vaccines (1 of 2 - 13+ 2-dose series) [facility] Start: 1998 Glaucoma screening Diabetes: Retinopathy Screening [facility] Start: 1990 Hepatitis B Surface Antibody Hepatitis B Surface Antibody [facility] Start: 1990 MMR Vaccines (1 of 1 - Standard series) MMR Vaccines (1 of 1 - Standard series) [facility] Start: 1989 Cyanocobalamin vitamin b-12 Vitamin B-12 [facility] Start: 1989 Lipid panel Lipid Panel [facility] Start: 1989 MMR Vaccines (1 of 1 - Standard series) MMR Vaccines (1 of 1 - Standard series) [facility] Start: 1989 Screening for osteoporosis Bone Density Scan [facility] Start: 1989 TB Test TB Test [facility] Start: 1989 Vitamin D25-OH Vitamin D25-OH [facility] Start: 1989 Yearly Adult Physical Yearly Adult Physical [facility] Start: 1988 Cyanocobalamin vitamin b-12 Vitamin B-12 [facility] Start: 1988 Lipid panel Lipid Panel [facility] Start: 1988 Screening for malignant neoplasm of cervix PAP SMEAR [facility] Start: 1988 Screening for osteoporosis Bone Density Scan [facility] Start: 1988 TB Test TB Test [facility] Start: 1988 Tetanus vaccination TETANUS EVERY 10 YR [facility] Start: 1988 Urine screening for protein Diabetes: Urine Protein Screening [facility] Start: 1988 Vitamin D25-OH Vitamin D25-OH [facility] Start: 1988 Yearly Adult Physical Yearly Adult Physical [facility] Bacteria identified Cx Nom (Bld) [facility] End: 12-25-2025 CBC panel - Blood by Automated count CBC Lab Routine Gestational hypertension, second trimester ([facility]) Once a week for 12 Occurrences starting 12/25/2024 until 12/25/2025 [facility] Work Phone: Comment on above: Once a week for 12 Occurrences starting 12/25/2024 until 12/25/2025 End: 02-12-2025 Chlamydia trachomatis and Neisseria gonorrhoeae DNA [Identifier] in Unspecified specimen by JYOTI with probe detection C. trachomatis / N. gonorrhoeae, Amplified, Urogenital Lab Add-On Once (Lab) for 1 Occurrences starting 02/12/2025 until 02/12/2025 [facility] Service Area Work Phone: Comment on above: Once (Lab) for 1 Occurrences starting until 02/12/2025 End: 12-25-2025 Comprehensive metabolic 2000 panel - Serum or Plasma Comprehensive Metabolic Panel Lab Routine Gestational hypertension, second trimester ([facility]) Once a week for 12 Occurrences starting 12/25/2024 until 12/25/2025 [facility] Work Phone: Comment on above: Once a week for 12 Occurrences starting 12/25/2024 until 12/25/2025 Electrocardiogram, 12-lead PRN ACS symptoms Electrocardiogram, 12-lead PRN ACS symptoms ECG Routine As needed until discontinued starting 12/23/2024 [facility] Work Phone: Comment on above: As needed until discontinued starting Electrocardiogram, 12-lead PRN ACS symptoms Electrocardiogram, 12-lead PRN ACS symptoms ECG Routine As needed until discontinued starting 12/23/2024 [facility] Work Phone: Comment on above: As needed until discontinued starting Electrocardiogram, 12-lead PRN ACS symptoms Electrocardiogram, 12-lead PRN ACS symptoms ECG Routine As needed until discontinued starting 01/08/2025 [facility] Work Phone: Comment on above: As needed until discontinued starting Electrocardiogram, 12-lead PRN ACS symptoms Electrocardiogram, 12-lead PRN ACS symptoms ECG Routine As needed until discontinued starting 02/13/2025 [facility] Work Phone: Comment on above: As needed until discontinued starting Electrocardiogram, 12-lead PRN ACS symptoms Electrocardiogram, 12-lead PRN ACS symptoms ECG Routine As needed until discontinued starting 02/16/2025 [facility] Work Phone: Comment on above: As needed until discontinued starting Electrocardiogram, 12-lead PRN ACS symptoms Electrocardiogram, 12-lead PRN ACS symptoms ECG Routine As needed until discontinued starting 03/01/2025 [facility] Service Area Work Phone: Comment on above: As needed until discontinued starting Gas panel - Arterial cord blood Blood Gas Cord Arterial Lab Timed As needed (Lab) until discontinued starting 12/23/2024 [facility] Work Phone: Comment on above: As needed (Lab) until discontinued start ing 12/23/2024 Gas panel - Arterial cord blood Blood Gas Cord Arterial Lab Routine As needed (Lab) until discontinued starting 02/13/2025 [facility] Work Phone: Comment on above: As needed (Lab) until discontinued start ing 02/13/2025 Gas panel - Venous cord blood Blood Gas Cord Venous Lab Timed As needed (Lab) until discontinued starting 12/23/2024 [facility] Work Phone: Comment on above: As needed (Lab) until discontinued start ing 12/23/2024 Gas panel - Venous cord blood Blood Gas Cord Venous Lab Routine As needed (Lab) until discontinued starting 02/13/2025 [facility] Work Phone: Comment on above: As needed (Lab) until discontinued start ing 02/13/2025 Glucose [Mass/volume ] in Serum or Plasma POCT Glucose Point of Care Testing - Docked Device Routine As needed (Lab) until discontinued starting 12/23/2024 [facility] Work Phone: Comment on above: As needed (Lab) until discontinued start ing 12/23/2024 Glucose [Mass/volume ] in Serum or Plasma [facility] Work Phone: Comment on above: Every Morning (Lab) until discontinued s tarting 12/24/2024, 1 completed 3 times daily after meals (Lab) until discontinued starting 12/24/2024, 3 completed End: 12-23-2024 Nonstress test [facility] Work Phone: Comment on above: Once for 1 Occurrences starting 12/23/19 until 12/23/2024 Daily until disconti nued starting 12/24/2024 As needed until disc ontinued starting 12/23/2024 End: 01-08-2025 Nonstress test nonstress test (>= 23 weeks) Procedures Routine Once for 1 Occurrences starting 01/08/2025 until 01/08/2025 [facility] Work Phone: Comment on above: Once for 1 Occurrences starting 01/09/20 until 01/08/2025 Patient Education [facility] Work Phone: Patient referral [facility] Work Phone: End: 02-16-2025 POCT UA (nonautomated) manually resulted POCT UA (nonautomated) manually resulted Point of Care Testing Routine Once (Lab) for 1 Occurrences starting 02/16/2025 until 02/16/2025 [facility] Service Area Work Phone: Comment on above: Once (Lab) for 1 Occurrences starting until 02/16/2025 End: 03-01-2025 POCT UA (nonautomated) manually resulted POCT UA (nonautomated) manually resulted Point of Care Testing Routine Once (Lab) for 1 Occurrences starting 03/01/2025 until 03/01/2025 [facility] Work Phone: Comment on above: Once (Lab) for 1 Occurrences starting until 03/01/2025 End: 01-08-2025 US for [facility] Service Area Work Phone: Comment on above: Once for 1 Occurrences starting 01/09/20 until 01/08/2025 End: 01-29-2025 US for [facility] Work Phone: Comment on above: Once for 1 Occurrences starting 01/30/20 until 01/29/2025 Immunizations Immunization Date Immunization Notes Care Provider Gerard bain 05-01-2015 PPD (MANTOUX TEST); Translations: [PPD (MANTOUX TEST)] Joseph Renteria [facility] Work Phone: 02-13-2014 tuberculin skin test ; purified protein derivative solution, intradermal Zoë Santana MD Work Phone: [facility] NEGATED: Highlighted row has not occurred!02-15-2025 measles, mumps and rubella virus vaccine Earl Colorado MD Work Phone: [facility] Comment on above: Deferred: No longer needed Payers Date Payer Category Payer Medicaid MEDICAID [id number] 2024 Unknown [id number] 2023 [employer] [id number]. 2023 [employer] Managed Care - O [employer] BLUE CROSS [id number] 2023 Unknown [id number] 2023 Unknown [id number] 2022 Self-pay [id number] 2018 Private Health Insurance [id number] 2015 Medicaid [id number] 1989 Unknown [id number] 2.16.840.1.758141.3.579.2. 627 1989 Unknown [id number] 2.16.840.1.816631.3.579.2. 627 1989 Unknown [id number] 2.16.840.1.764741.3.579.2. 479 1989 Unknown [id number] 2.16.840.1.910017.3.579.2. 479 1989 Unknown [id number] 2.16.840.1.350806.3.579.2. 9 1989 Unknown [id number] 2.16.840.1.133121.3.579.2. 9 1989 Unknown [id number] 2.16.840.1.724935.3.579.2. 1243 1989 Unknown [id number] 2.16.840.1.869034.3.579.2. 1244 1989 Unknown [id number] 2.16.840.1.142605.3.579.2. 1244 1989 Unknown [id number] 2.16.840.1.335319.3.579.2. 1244 1989 Unknown [id number] 2.16.840.1.783348.3.579.2. 1244 1989 Unknown [id number] 2.16.840.1.520998.3.579.2. 1244 1989 Unknown [id number] 2.16.840.1.301938.3.579.2. 1244 1989 Unknown [id number] 2.16.840.1.535718.3.579.2. 1244 1989 Unknown [id number] 2.16.840.1.043376.3.579.2. 1244 1989 Unknown [id number] 2.16.840.1.935926.3.579.2. 1244 1989 Unknown [id number] 2.16.840.1.797125.3.579.2. 1244 1989 Unknown [id number] 2.16.840.1.957456.3.579.2. 1244 1989 Unknown [id number] 2.16.840.1.704826.3.579.2. 1244 1989 Unknown [id number] 2.16.840.1.798173.3.579.2. 1245 1989 Unknown [id number] 2.16.840.1.675173.3.579.2. 1245 1989 Unknown [id number] 2.16.840.1.852811.3.579.2. 1245 1989 Unknown [id number] 2.16.840.1.826162.3.579.2. 1245 1989 Unknown [id number] 2.16.840.1.491542.3.579.2. 1245 1988 Unknown [id number] 2.16.840.1.294200.3.579.2. 430 1988 Unknown [id number] 2.16.840.1.406952.3.579.2. 902 1988 Unknown [id number] 2.16.840.1.817177.3.579.2. 173 1988 Unknown [id number] 2.16.840.1.265334.3.579.2. 173 1988 Unknown [id number] 2.16.840.1.119375.3.579.2. 173 1988 Unknown [id number] 2.16.840.1.767959.3.579.2. 174 1988 Unknown [id number] 2.16.840.1.135368.3.579.2. 174 1988 Unknown [id number] 2.16.840.1.842671.3.579.2. 174 1988 Unknown [id number] 2.16.840.1.112388.3.579.2. 174 1988 Unknown [id number] 2.16.840.1.010631.3.579.2. 174 1988 Unknown [id number] 2.16.840.1.809880.3.579.2. 174 1988 Unknown [id number] 2.16.840.1.616906.3.579.2. 732 1988 Unknown [id number] 2.16.840.1.691333.3.579.2. 903 1988 Unknown [id number] 2.16.840.1.492162.3.579.2. 903 1988 Unknown [id number] 2.16.840.1.655906.3.579.2. 1244 1988 Unknown [id number] 2.16840.1.896214.3.579.2. 1244 1988 Unknown [id number] 2.16840.1.130872.3.579.2. 1244 1988 Unknown [id number] 2.16840.1.324991.3.579.2. 1245 1988 Unknown [id number] 2.0.1.605244.3.579.2. 1245 Unknown Unknown ANTHEM [id number] Unknown [id number] Unknown [place] [id number] Unknown [id number] 2.840.1.345171.3.579.2. 462 Unknown [id number] 2.840.1.059859.3.579.2. 462 Unknown [id number] 2.840.1.802043.3.579.2. 462 Unknown [id number] 2.840.1.601090.3.579.2. 462 Unknown [id number] 2.840.1.972370.3.579.2. 462 Unknown [id number] 2.840.1.662497.3.579.2. 462 Unknown [id number] 2.840.1.430503.3.579.2. 462 Unknown [id number] 2.16.840.1.090023.3.579.2. 462 Unknown [id number] 2.16.840.1.408118.3.579.2. 462 Unknown [id number] 2.16.840.1.390064.3.579.2. 462 Unknown [id number] 2.16.840.1.225652.3.579.2. 462 Unknown [id number] 2.16.840.1.576698.3.579.2. 462 Unknown [id number] 2.16.840.1.259572.3.579.2. 462 Unknown [id number] 2.16.840.1.150018.3.579.2. 462 Unknown [id number] 2.16.840.1.632325.3.579.2. 462 Unknown [id number] 2.16.840.1.308535.3.579.2. 462 Unknown [id number] 2.16.840.1.129870.3.579.2. 462 Unknown [id number] 2.16.840.1.644591.3.579.2. 462 Unknown [id number] 2.16.840.1.835666.3.579.2. 462 Unknown [id number] 2.16.840.1.189364.3.579.2. 462 Unknown [id number] 2.16.840.1.806128.3.579.2. 462 Unknown [id number] 2.16.840.1.186243.3.579.2. 462 Unknown [id number] 2.16.840.1.810221.3.579.2. 462 Unknown [id number] 2.16.840.1.258823.3.579.2. 462 Unknown [id number] 2.16.840.1.027135.3.579.2. 462 Unknown [id number] 2.16840.1.853659.3.579.2. 462 Unknown [id number] 2.840.1.245971.3.579.2. 462 Unknown [id number] 2.16.840.1.528069.3.579.2. 462 Unknown [id number] 2.16840.1.525270.3.579.2. 462 Unknown [id number] 2.840.1.535236.3.579.2. 462 Unknown [id number] 2.840.1.021162.3.579.2. 462 Unknown [id number] 2.840.1.323584.3.579.2. 462 Unknown [id number] 2.840.1.989715.3.579.2. 462 Unknown [id number] 2.840.1.336261.3.579.2. 462 Unknown [id number] 2.840.1.800526.3.579.2. 462 Unknown [id number] 2.840.1.455777.3.579.2. 462 Unknown [id number] 2.840.1.579960.3.579.2. 462 Unknown [id number] 2.840.1.228269.3.579.2. 462 Unknown [id number] 2.840.1.312035.3.579.2. 462 Unknown [id number] 2.840.1.782183.3.579.2. 462 Unknown [id number] 2.840.1.425990.3.579.2. 462 Unknown [id number] 2.840.1.144704.3.579.2. 462 Unknown [id number] 2.840.1.257047.3.579.2. 462 Unknown [id number] 2.840.1.271779.3.579.2. 462 Unknown [id number] 2.16.840.1.453654.3.579.2. 462 Unknown [id number] 2.16.840.1.126835.3.579.2. 462 Social History Date Type Detail Facility Start: 09-03-2018 End: 10-07-2018 Tobacco smoking status NHIS Never smoker [facility] Start: 1988 End: 1989 Sex Assigned At Not on file [facility] Start: 08-18-2022 End: 02-22-2024 Tobacco smoking status DEIS Unknown if ever smoked [facility] Start: 1988 End: 1989 Sex Assigned At Female [facility] Tobacco smoking status No Smoking Status Entered [facility] Start: 12-09-2024 Alcoholic beverage intake Current non-drinker of alcohol (finding) [facility] Start: 11-25-2024 End: 03-10-2025 History of Social function [facility] Start: 11-25-2024 End: 03-10-2025 Tobacco use panel [facility] Start: 06-05-2022 Sex Female (finding) [facility] Start: 12-23-2024 Tobacco smoking status DEIS Ex-smoker [facility] History of tobacco use Current smoker [facility] Work Phone: History of tobacco use Cigarette Smoker [facility] Work Phone: Within the last year , have you been afraid of your partner or ex-partner? No [facility] Work Phone: How often to you hav e a drink containing alcohol? Never [facility] Work Phone: How many standard drinks containing alcohol do you have on a typical day? Patient does not drink [facility] Work Phone: How hard is it for you to pay for the very basics like food, housing, medical care, and heating Somewhat hard [facility] Work Phone: (I/We) worried whether (my/our) food would run out before (I/we) got money to buy more. Never true [facility] Work Phone: Start: 07-14-2024 [facility] Work Phone: Start: 12-13-2024 End: 03-10-2025 Exposure to SARS-CoV-2 (event) Not sure [facility] Work Phone: Start: 01-01-2025 End: 05-13-2025 Alcoholic beverage intake Lifetime non-drinker (finding) [facility] Work Phone: Start: 03-03-2025 Tobacco smoking status NHIS Smokes tobacco daily [facility] Work Phone: NEGATED: Highlighted row [facility] Procedure Code Equipment Code Equipment Origin al Text Equipment Identifier Dates Use to Test Bloo d Glucose 4 times a day - fasting and at 2 hours after a meal. [id number] Start: 02-12-2018 FOR FASTING AND 2 HOURS AFTER MEALS [id number] Start: 02-12-2018 Use 1 strip 4-6 times a day during [id number] Start: 12-25-2024 Use 1 lancet 4-6 times per day during [id number] Start: 12-25-2024 Use 1 per inject ion, up to 5 times a day [id number] Start: 12-25-2024 End: 01-01-2025 Use 1 per inject ion, up to 5 times a day [id number] Start: 01-01-2025 Use 1 per inject ion, up to 8 times a day [id number] Start: 01-06-2025 End: 03-01-2025 Use 1 per inject ion, up to 8 times a day [id number] Start: 03-01-2025 Functional Status Date Assessment Result Facility 05-13-2025 Patient Health Questionnaire 2 item (PHQ-2) [Reported] [facility] Work Phone: 03-10-2025 Patient Health Questionnaire 2 item (PHQ-2) [Reported] [facility] Work Phone: 03-03-2025 Patient Health Questionnaire 2 item (PHQ-2) [Reported] [facility] Work Phone: 03-01-2025 Total score [AUDIT-C] 0 03/01/20 25 4:40 PM EDT Gregory Harrell, DOUG [facility] Work Phone: 03-01-2025 Patient Health Questionnaire 2 item (PHQ-2) [Reported] [facility] Work Phone: 03-01-2025 [facility] suicide s everity rating scale screener - recent [C-SSRS] [facility] Work Phone: 09-06-2022 Functional Status Independent [facility] 09-06-2022 Functional Status Standard Safet y ID band on, Call device within reach, Bed in low position, Wheels locked, personal items within reach, Visitor at bedside, Safety level maintained [facility] Work Phone: Mental Status Date Assessment Result Facility 12-14-2022 Cognitive function Voice/Name [facility] Work Phone: 10-26-2022 Cognitive function Level Of Cons ciousness Awake;Alert;Appropriate;Follow s Commands [facility] Work Phone: 09-06-2022 Mental Status Orientation Oriented x 4 [facility] 09-06-[address] [facility] Clinical Notes 09-06-2022 to 05-13-2025 Zoë Santana MD - 05/13/2025 12:45 PM EDTAssessment & Plan Note - Suzette Galindo MD - 03/10/2025 12:30 PM EDTAssessment & Plan Note - Suzette Galindo MD - 03/10/2025 12:30 PM EDT Note Date & Type Note Facility 05-13-2025 History of Present illness Narrative Subjective Patient ID: Dayna Tinsley is a 34 y.o. female who presents for Follow-up (6 week fu (ozempic) having trouble sleeping ). HPI MED REFILL. WEIGHT GAIN, IS WILLING TO INCREASE THE OZEMPIC. CHRONIC INSOMNIA, OTC TX DOESN'T HELP. NEEDS A LETTER TO USE THE GYM. FACIAL ACNE ,DOESN'T WANT TO TAKE DOXY WITH H/O C.DIFF. NEEDS AGRICULTURAL EXTENSION AGENT REFERRAL FOR CONTROL INJECTIONS. Review of Systems Constitutional: Negative for chills and fever. WEIGHT GAIN HENT: Negative. Negative for congestion, postnasal drip and rhinorrhea. Eyes: Negative. Negative for visual disturbance. Respiratory: Negative for cough, shortness of breath and wheezing. Cardiovascular: Negative. Negative for chest pain, palpitations and leg swelling. Gastrointestinal: Negative. Negative for abdominal distention, abdominal pain, constipation, diarrhea, nausea and vomiting. Endocrine: Negative. Genitourinary: Negative for dysuria and urgency. Musculoskeletal: Negative. Negative for back pain. Skin: Negative. Negative for rash. Allergic/Immunologic: Negative for immunocompromised state. Neurological: Negative. Negative for dizziness, weakness, light-headedness and headaches. Psychiatric/Behavioral: Positive for sleep disturbance. Negative for agitation. Objective Physical Exam Constitutional: General: She is not in acute distress. HENT: Head: Normocephalic. Nose: Nose normal. Mouth/Throat: Mouth: Mucous membranes are moist. Eyes: Conjunctiva/sclera: Conjunctivae normal. Pupils: Pupils are equal, round, and reactive to light. Cardiovascular: Rate and Rhythm: Normal rate and regular rhythm. Pulses: Normal pulses. Heart sounds: Normal heart sounds. Pulmonary: Effort: No respiratory distress. Breath sounds: No wheezing. Chest: Chest wall: No tenderness. Abdominal: General: Abdomen is flat. Bowel sounds are normal. Palpations: Abdomen is soft. Tenderness: There is no abdominal tenderness. Musculoskeletal: General: No tenderness. Normal range of motion. Cervical back: Normal range of motion. Lymphadenopathy: Cervical: No cervical adenopathy. Skin: General: Skin is warm and dry. Findings: No rash. Neurological: General: No focal deficit present. Mental Status: She is alert. Mental status is at baseline. Psychiatric: Mood and Affect: Mood normal. Behavior: Behavior normal. Assessment/Plan 1. Type 2 diabetes mellitus without complication, with long-term current use of insulin semaglutide 0.25 mg or 0.5 mg (2 mg/3 mL) pen injector Comprehensive Metabolic Panel Hemoglobin A1C Albumin-Creatinine Ratio, Urine Random Comprehensive Metabolic Panel Hemoglobin A1C Albumin-Creatinine Ratio, Urine Random insulin glargine (Lantus) 100 unit/mL (3 mL) pen insulin lispro (HumaLOG) 100 unit/mL pen 2. Benign essential HTN spironolactone (Aldactone) 50 mg tablet DISCONTINUED: spironolactone (Aldactone) 50 mg tablet 3. Other insomnia traZODone (Desyrel) 50 mg tablet 4. Healthcare maintenance Referral to Gynecology 5. Hypomagnesemia Magnesium Magnesium ADVISED TO HAVE LOW FAT AND LOW CALORIE DIET AND TO LOOSE WEIGHT, DAILY EXERCISE. Diabetes Mellitus addressed as follow: 1800 ROXANA ADA HGA1C GOAL LESS THAN 7 LOSE WT EXERCISE DAILY. WILL INCREASE THE OZEMPIC TO 1 MG WEEKLY. ADVISED FOR RELAXATION TECHNIQUES AND TO CUT DOWN ON CAFFEINE. TO AVOID TAKING NAPS DURING THE DAY. WILL START TRAZODONE 50 MG Q HS. WILL INCREASE THE SPIRONOLACTONE TO 50 MG DAILY FOR ACNE. MDM 1) COMPLEXITY: 1 UNDIAGNOSED NEW PROBLEM WITH UNCERTAIN PROGNOSIS 2)DATA: TESTS INTERPRETED AND OR ORDERED, TOOK INDEPENDENT HISTORY OR RECORDS REVIEWED 3)RISK: MODERATE RISK DUE TO NATURE OF MEDICAL CONDITIONS/COMORBIDITY OR MEDICATIONS ORDERED OR SURGICAL OR PROCEDURE REFERRAL, . 1.5 mon Pt needs a note mentioning that because of her underlying health conditions it's recommended for pt to do workup at the gym 6 days /week for 1 hour duration EACH TIME. documented in this encounter [facility] Work Phone: 03-10-2025 Evaluation + Plan note Associated Problem(s): History of gestational diabetes -Continues to have elevated blood sugars . Has not completed 2hr gtt, however, given continued elevated blood sugars likely consistent with T2DM, recommend continuing insulin. -Currently taking Humalog 40 BID, Lantus 20-30units TID with meals, up to additional 5u postprandial if elevated -Desires restarting Wegovy, discussed with patient would be managed by PCP and to discuss further with PCP at next visit. -Cont current regimen and follow up with PCP -Has PCP follow up on 5/13 [facility] Work Phone: 03-10-2025 Evaluation + Plan note Associated Problem(s): Encounter for visit -Mood is good. No acute concerns. -Discussed OK to return to work without restrictions and return to sexual intercourse as desired. -Due for pap smear, recommend completing today. Patient declines, will complete at next visit. -Reports many family members with breast cancer in 40s on maternal and paternal side, desires early mammogram. Referral to cancer genetics. -Will schedule eye technician follow up visit for pap, depo, and further discussion of mammogram timing. Orders: Referral to Physical Therapy; Future Referral to Genetics; Future [facility] Work Phone: 03-10-2025 Evaluation + Plan note Associated Problem(s): Counseling for initiation of control method -Discussed recommendation for progesterone only methods given persistent high blood pressure with likely chronic hypertension. Discussed risks and benefits of options. Patient desires depo. First dose given today. Next dose early end of May/early June. Orders: medroxyPROGESTERone (Depo-Provera) injection 150 mg [facility] Work Phone: 03-10-2025 Evaluation + Plan note Associated Problem(s): History of pre-eclampsia -Cont nifedipine 60/30 and spirinolactone per PCP. Recommend discussing with PCP switching to JUSTINE/ARB now that patient is . -Cont daily BP monitoring at home. [facility] Work Phone: 03-10-2025 Evaluation + Plan note Associated Problem(s): Bilateral lower extremity edema -Likely secondary to related fluid changes given still in period. Bilateral without pain or erythema, low suspicion for DVT. -Encouraged elevation and compression socks -Patient desires lasix course, prescribed. Orders: Basic Metabolic Panel; Future furosemide (Lasix) 40 mg tablet; Take 1 tablet (40 mg) by mouth once daily. T [facility] Work Phone: 03-10-2025 History of Present illness Narrative MFM Follow-up 03/10/2025 2:31 PM SUBJECTIVE HPI: Dayna Tinsley is a 34 y.o. s/p at 32w3d on 02/15 in the setting of [facility] here for visit. Patient reports she is still having pitting edema in legs was seen in triage and given course of lasix, doesn't feel it is working. She is now on 2 BP meds, currenlty taking nifed 60/30 and spironolactone (prescribed by PCP). Has not been exercising because hasn't been medically cleared. Blood pressures have been 140s-150s/70-90. Taking BP 1-2 times daily. Has been taking insulin still as sugars have been high. Has been taking 40 long acting BID, 20-30 short acting with meals, then if spikes higher with give up to 5u to get into range. Has been having back pain that she reports she thinks is due to epidural. Working with PCP to decide if going to start Wegovy. Of note, does not have custody of child. Working to get custody of her. Baby is still in NICU. Delivery Date: 02/15/2025 [place] at Delivery: 32w3d Type of Delivery: notable for: -PEC w/ SF -GDM Pain: controlled Lacerations: none Lochia: none Menses: doesn't think so Sexual Intimacy: not yet Contraceptive Method: desires, discussed options Feeding Method: bottle, has been pumping Trauma: No Bonding with Baby: well with Mood: good OBJECTIVE Physical exam: General: AAOx3, No acute distress Cardiovascular: Warm and well perfused Respiratory: Normal respiratory effort Abdominal: Soft, non-tender Extremities: 1-2+ pitting edema bilateral, equal, no calf tenderness Skin: No rashes or lesions visualized Visit Vitals BP 128/77 Pulse 110 Wt 137 kg (303 lb 1.6 oz) LMP (LMP Unknown) No BMI 52.03 kg/m OB Status Recent Smoking Status Every Day BSA 2.49 m ASSESSMENT & PLAN Dayna Tinsley is a 34 y.o. at 32w3d here for the following concerns we addressed today: Assessment & Plan History of gestational diabetes -Continues to have elevated blood sugars . Has not completed 2hr gtt, however, given continued elevated blood sugars likely consistent with T2DM, recommend continuing insulin. -Currently taking Humalog 40 BID, Lantus 20-30units TID with meals, up to additional 5u postprandial if elevated -Desires restarting Wegovy, discussed with patient would be managed by PCP and to discuss further with PCP at next visit. -Cont current regimen and follow up with PCP -Has PCP follow up on 03/17 Encounter for visit -Mood is good. No acute concerns. -Discussed OK to return to work without restrictions and return to sexual intercourse as desired. -Due for pap smear, recommend completing today. Patient declines, will complete at next visit. -Reports many family members with breast cancer in 40s on maternal and paternal side, desires early mammogram. Referral to cancer genetics. -Will schedule eye technician follow up visit for pap, depo, and further discussion of mammogram timing. Orders: Referral to Physical Therapy; Future Referral to Genetics; Future Counseling for initiation of control method -Discussed recommendation for progesterone only methods given persistent high blood pressure with likely chronic hypertension. Discussed risks and benefits of options. Patient desires depo. First dose given today. Next dose early end of May/early June. Orders: medroxyPROGESTERone (Depo-Provera) injection 150 mg History of pre-eclampsia -Cont nifedipine 60/30 and spirinolactone per PCP. Recommend discussing with PCP switching to JUSTINE/ARB now that patient is . -Cont daily BP monitoring at home. Bilateral lower extremity edema -Likely secondary to related fluid changes given still in period. Bilateral without pain or erythema, low suspicion for DVT. -Encouraged elevation and compression socks -Patient desires lasix course, prescribed. Orders: Basic Metabolic Panel; Future furosemide (Lasix) 40 mg tablet; Take 1 tablet (40 mg) by mouth once daily. RTC in 3 months for eye technician visit Patient seen and evaluated with Dr. Ranjeet Galindo MD PGY1, Obstetrics and Gynecology Cosigned by Carline Pollack MD at 03/11/2025 4:47 PM EDT Associated attestation - Carline Pollack MD - 03/11/2025 4:47 PM EDT I saw and evaluated the patient. I personally obtained the mixon and critical portions of the history and physical exam or was physically present for mixon and critical portions performed by the resident/fellow. I reviewed the resident/fellow's documentation and discussed the patient with the resident/fellow. I agree with the resident/fellow's medical decision making as documented in the note. Carline Pollack MD Maternal Medicine documented in this encounter [facility] Work Phone: 03-10-2025 Miscellaneous Notes Associated Problem(s): History of gestational diabetes -Continues to have elevated blood sugars . Has not completed 2hr gtt, however, given continued elevated blood sugars likely consistent with T2DM, recommend continuing insulin. -Currently taking Humalog 40 BID, Lantus 20-30units TID with meals, up to additional 5u postprandial if elevated -Desires restarting Wegovy, discussed with patient would be managed by PCP and to discuss further with PCP at next visit. -Cont current regimen and follow up with PCP -Has PCP follow up on 03/17 Associated Problem(s): Encounter for visit -Mood is good. No acute concerns. -Discussed OK to return to work without restrictions and return to sexual intercourse as desired. -Due for pap smear, recommend completing today. Patient declines, will complete at next visit. -Reports many family members with breast cancer in 40s on maternal and paternal side, desires early mammogram. Referral to cancer genetics. -Will schedule eye technician follow up visit for pap, depo, and further discussion of mammogram timing. Orders: Referral to Physical Therapy; Future Referral to Genetics; Future Associated Problem(s): Counseling for initiation of control method -Discussed recommendation for progesterone only methods given persistent high blood pressure with likely chronic hypertension. Discussed risks and benefits of options. Patient desires depo. First dose given today. Next dose early end of May/early June. Orders: medroxyPROGESTERone (Depo-Provera) injection 150 mg Associated Problem(s): History of pre-eclampsia -Cont nifedipine 60/30 and spirinolactone per PCP. Recommend discussing with PCP switching to JUSTINE/ARB now that patient is . -Cont daily BP monitoring at home. Associated Problem(s): Bilateral lower extremity edema -Likely secondary to related fluid changes given still in period. Bilateral without pain or erythema, low suspicion for DVT. -Encouraged elevation and compression socks -Patient desires lasix course, prescribed. Orders: Basic Metabolic Panel; Future furosemide (Lasix) 40 mg tablet; Take 1 tablet (40 mg) by mouth once daily. documented in this encounter [facility] Work Phone: 03-03-2025 History of Present illness Narrative Subjective Patient ID: Dayna Tinsley is a 34 y.o. female who presents for New Patient Visit (NEW PT WANTING BACK ON [facility]). HPI NEW PT . S/P RECENT NORMAL VAGINAL DELIVERY (HER 6TH BABY ) . HAD PRE-ECLAMPSIA DURING AND WAS STARTED ON NIFEDIPINE. GESTATIONAL DIABETES, CURRENTLY IS ON INSULIN .HAD GESTATIONAL DM AFTER THE LAST 3 PREGNANCIES WHICH PER PT IMPROVED AFTER DELIVERY. PT IS BREAST-FEEDING (PUMPS THE BREAST), . BABY DOESN'T LIVE WITH HER ,PER PT DUE TO POST- DEPRESSION (?), BUT APPARENTLY WAS BECAUSE OF POST- PSYCHOSIS . GAINED 100 LBS DURING THE AND GAINED 10 MORE LBS IN 2 WEEKS AFTER DELIVERY , WITH WORSENING LEG EDEMA, FATIGUE . NO SOB , NO LEG PAIN. WEGOVY HELPED BEFORE THE WITH WEIGHT LOSS. HAS F/U WITH AGRICULTURAL EXTENSION AGENT AND PSYCHIATRIST. HAS H/O CROHN'S DISEASE , S/P PARTIAL COLECTOMY MANY YEARS AGO. Review of Systems Constitutional: Positive for fatigue. Negative for chills and fever. WEIGHT GAIN. HENT: Negative. Negative for congestion, postnasal drip and rhinorrhea. Eyes: Negative. Negative for visual disturbance. Respiratory: Negative for cough, shortness of breath and wheezing. Cardiovascular: Negative. Negative for chest pain, palpitations and leg swelling. Gastrointestinal: Negative. Negative for abdominal distention, abdominal pain, constipation, diarrhea, nausea and vomiting. Endocrine: Negative. Genitourinary: Negative for dysuria and urgency. Musculoskeletal: Negative. Negative for back pain. Skin: Negative. Negative for rash. Allergic/Immunologic: Negative for immunocompromised state. Neurological: Negative. Negative for dizziness, weakness, light-headedness and headaches. Psychiatric/Behavioral: Negative. Negative for agitation. Objective Physical Exam Constitutional: General: She is not in acute distress. HENT: Head: Normocephalic. Nose: Nose normal. Mouth/Throat: Mouth: Mucous membranes are moist. Eyes: Conjunctiva/sclera: Conjunctivae normal. Pupils: Pupils are equal, round, and reactive to light. Cardiovascular: Rate and Rhythm: Normal rate and regular rhythm. Pulses: Normal pulses. Heart sounds: Normal heart sounds. Pulmonary: Effort: No respiratory distress. Breath sounds: No wheezing. Chest: Chest wall: No tenderness. Abdominal: General: Abdomen is flat. Bowel sounds are normal. Palpations: Abdomen is soft. Tenderness: There is no abdominal tenderness. Musculoskeletal: General: No tenderness. Normal range of motion. Cervical back: Normal range of motion. Comments: 3+ B/L LEG EDEMA Lymphadenopathy: Cervical: No cervical adenopathy. Skin: General: Skin is warm and dry. Findings: No rash. Neurological: General: No focal deficit present. Mental Status: She is alert. Mental status is at baseline. Psychiatric: Mood and Affect: Mood normal. Behavior: Behavior normal. Assessment/Plan 1. Benign essential HTN Comprehensive Metabolic Panel Comprehensive Metabolic Panel spironolactone (Aldactone) 25 mg tablet 2. Fatigue, unspecified type Comprehensive Metabolic Panel CBC and Auto Differential Magnesium Zinc TSH with reflex to Free T4 if abnormal Comprehensive Metabolic Panel CBC and Auto Differential Magnesium Zinc TSH with reflex to Free T4 if abnormal 3. Weight gain Comprehensive Metabolic Panel TSH with reflex to Free T4 if abnormal Comprehensive Metabolic Panel TSH with reflex to Free T4 if abnormal 4. History of gestational diabetes Comprehensive Metabolic Panel Hemoglobin A1C Comprehensive Metabolic Panel Hemoglobin A1C 5. Anemia, unspecified type CBC and Auto Differential CBC and Auto Differential 6. Screening for hyperlipidemia Lipid Panel Lipid Panel 7. Attention or concentration deficit 8. Leg edema 9. Gastroesophageal reflux disease without esophagitis 10. psychosis (Multi) 11. Moderate depressive disorder 12. Anxiety TEST RESULTS WERE DISCUSSED. I HIGHLY ADVISED TO STOP THE BREAST-FEEDING (WITH TAKING THE CURRENT MEDICATIONS) , TO USE PROTECTION TO PREVENT MORE PREGNANCIES. Diabetes Mellitus/IFG addressed as follow: 1800 ROXANA ADA HGA1C GOAL LESS THAN 7 LOSE WT EXERCISE DAILY HTN addressed as follow: MONITOR BP GOAL BP LOWER THAN 130/80 LOW SALT EXERCISE DAILY ADVISED FOR RELAXATION TECHNIQUES AND TO CUT DOWN ON CAFFEINE. ADVISED FOR B/L LEG ELEVATION PRN. ADVISED TO HAVE LOW FAT AND LOW CALORIE ,HIGH PROTEIN DIET AND TO LOOSE WEIGHT, DAILY EXERCISE. MDM 1) COMPLEXITY: 1 UNDIAGNOSED NEW PROBLEM WITH UNCERTAIN PROGNOSIS 2)DATA: TESTS INTERPRETED AND OR ORDERED, TOOK INDEPENDENT HISTORY OR RECORDS REVIEWED 3)RISK: MODERATE RISK DUE TO NATURE OF MEDICAL CONDITIONS/COMORBIDITY OR MEDICATIONS ORDERED OR SURGICAL OR PROCEDURE REFERRAL, . 2 weeks Handout for diabetic diet. documented in this encounter [facility] Work Phone: 02-16-2025 Note Hanane Malagon MD 02/16 3:01 PM PROCEDURE NOTE Pelvic US Reason: c/f retained POC Uterus Length: 12.42 AP: 8.54 Trans: 8.95 Endometrial Thickness: 16.7mm, no doppler flow Right Ovary Length: 4.27 AP: 1.59 Trans: 2.43 Left Ovary Length: 5.44 AP: 2.74 Trans: 1.5 Impression: Likely retained clot, no doppler flow, no evidence of retained POC. IMAGING 02-16-2025 Procedure note Associated Ord er(s): POINT OF CARE ULTRASOUND PROCEDURE NOTE Pelvic US Reason: c/f retained POC Uterus Length: 12.42 AP: 8.54 Trans: 8.95 Endometrial Thickness: 16.7mm, no doppler flow Right Ovary Length: 4.27 AP: 1.59 Trans: 2.43 Left Ovary Length: 5.44 AP: 2.74 Trans: 1.5 Impression: Likely retained clot, no doppler flow, no evidence of retained POC. Cosigned by Kelli Matthews MD at 02/16/2025 3:39 PM EDT Associated attestation - Kelli Matthews MD - 02/16/2025 3:39 PM EDT I saw and evaluated the patient. I personally obtained the mixon and critical portions of the history and physical exam or was physically present for mixon and critical portions performed by the resident/fellow. I reviewed the resident/fellow's documentation and discussed the patient with the resident/fellow. I agree with the resident/fellow's medical decision making as documented in the note. [facility] Work Phone: 02-16-2025 Procedure note Associated Ord er(s): POINT OF CARE ULTRASOUND PROCEDURE NOTE Pelvic US Reason: c/f retained POC Uterus Length: 12.42 AP: 8.54 Trans: 8.95 Endometrial Thickness: 16.7mm, no doppler flow Right Ovary Length: 4.27 AP: 1.59 Trans: 2.43 Left Ovary Length: 5.44 AP: 2.74 Trans: 1.5 Impression: Likely retained clot, no doppler flow, no evidence of retained POC. Cosigned by Kelli Matthews MD at 02/16/2025 3:39 PM EDT Associated attestation - Kelli Matthews MD - 02/16/2025 3:39 PM EDT I saw and evaluated the patient. I personally obtained the mixon and critical portions of the history and physical exam or was physically present for mixon and critical portions performed by the resident/fellow. I reviewed the resident/fellow's documentation and discussed the patient with the resident/fellow. I agree with the resident/fellow's medical decision making as documented in the note. documented in this encounter [facility] Work Phone: 02-15-2025 major gifts manager Note Patient meets criteria for home monitoring of blood pressure post discharge. Met with patient to assess for availability of home BP monitor. Patient does not have access to BP monitor at home. Pt agreed to order home BP monitor from [employer]. BP monitor delivered to room. Patient educated on how to use BP monitor, recording BP s on home monitoring log and s/sx to report to her provider. Pt verbalized understanding the above information. [facility] Work Phone: 02-15-2025 Miscellaneous Notes Patient meets criteria for home monitoring of blood pressure post discharge. Met with patient to assess for availability of home BP monitor. Patient does not have access to BP monitor at home. Pt agreed to order home BP monitor from [employer]. BP monitor delivered to room. Patient educated on how to use BP monitor, recording BP s on home monitoring log and s/sx to report to her provider. Pt verbalized understanding the above information. Problem: Hypertensive Disorder of (HDP) Goal: Minimal s/sx of HDP and BP<160/110 Outcome: Met Flowsheets (Taken 02/15/2025 1043) Minimal s/sx of HDP and BP <160/110: Med administration/monitoring of effect Monitor for s/sx of worsening HDP Goal: Adequate urine output (0.5 ml/kg/hr) Outcome: Met Problem: Pain - Adult Goal: Verbalizes/displays adequate comfort level or baseline comfort level Outcome: Met Problem: Safety - Adult Goal: Free from fall injury Outcome: Met Problem: Discharge Planning Goal: Discharge to home or other facility with appropriate resources Outcome: Met Problem: Goal: Experiences normal course Outcome: Met Goal: Appropriate maternal - bonding Outcome: Met Goal: No s/sx infection Outcome: Met Goal: No s/sx of hemorrhage Outcome: Met The patient's goals for the shift include to board to be close to baby The clinical goals for the shift include Patient will continue to meet PP milestones Patients fundal and lochia assessment has been wnl, patients pain has been adequately controlled with prescribed medication management. Patient meeting all PP milestones and has maintained appropriate bonding for discharge. Discharge instructions reviewed and given to patient, all questions answered. Problem: Goal: Experiences normal course Outcome: Progressing Goal: Appropriate maternal - bonding Outcome: Progressing Goal: Establish and maintain infant feeding pattern for adequate nutrition Outcome: Progressing Goal: No s/sx infection Outcome: Progressing Goal: No s/sx of hemorrhage Outcome: Progressing Goal: Minimal s/sx of HDP and BP<160/110 Outcome: Progressing Non Destructive Testing Engineer Note Recommendations/Summary Attempted to see mother to discuss breast feeding/pumping. Mother not in room, letter left. Problem: Hypertensive Disorder of (HDP) Goal: Minimal s/sx of HDP and BP<160/110 Outcome: Progressing Goal: Adequate urine output (0.5 ml/kg/hr) Outcome: Progressing Problem: Pain - Adult Goal: Verbalizes/displays adequate comfort level or baseline comfort level Outcome: Progressing Problem: Safety - Adult Goal: Free from fall injury Outcome: Progressing Problem: Discharge Planning Goal: Discharge to home or other facility with appropriate resources Outcome: Progressing Problem: Chronic Conditions and Co-morbidities Goal: Patient's chronic conditions and co-morbidity symptoms are monitored and maintained or improved Outcome: Progressing Problem: Goal: Experiences normal course Outcome: Progressing Goal: Appropriate maternal - bonding Outcome: Progressing Goal: Establish and maintain feeding pattern for adequate nutrition Outcome: Progressing Goal: Incisions, wounds, or drain sites healing without S/S of infection Outcome: Progressing Goal: No s/sx infection Outcome: Progressing Goal: No s/sx of hemorrhage Outcome: Progressing Goal: Minimal s/sx of HDP and BP<160/110 Outcome: Progressing The patient's goals for the shift include Rest, vist infant in nicu, Bps normal The clinical goals for the shift include VSS, BP <160/110. Assessments Wnl Over the shift, the patient did make progress toward the following goals. This note was copied from a baby's chart. Non Destructive Testing Engineer Note Consultation Reason for Consult: Initial assessment, NICU baby Marble Setter Name: Isabel Contreras RN IBCLC Maternal Information Has mother breastfed before?: Yes How long did the mother previously breastfeed?: She could not say Previous Maternal Challenges: separation Infant to breast within first 2 hours of ?: No Delayed Due to: Infant status Exclusive Pump and Bottle Feed: No WIC Program: Yes Maternal Assessment Breast Assessment: Medium, Large (Right breast is smaller by about 1/3 to 1/2 her left brest.) Nipple Assessment: Intact, Erect with stimulation, Large diameter, Other (Comment) (Nipples measure 22 mm bilat.) Areola Assessment: Normal Infant Assessment Behavior: Other (Comment) (On NCPAP) Assessment: Other (Comment) (32 3/7 week ) Feeding Assessment Nutrition Source: Donor human milk, Breastmilk Feeding Method: Tube feeding LATCH TOOL Breast Pump Pump: Hospital grade electric pump Frequency: 8-10 times per day Breast Shield Size and Type: 24 mm, Other (comment) (Mom was given a pair of 27 mm flanges to trial as she has a very thick nipple on her left side.) Units of Volume: Drops Other OB Tools Patient Follow-up Other OB Documentation Maternal Risk Factors: delivery <37 weeks, Preeclampsia Infant Risk Factors: Prematurity <37 weeks Recommendations/Summary I spoke with mom at pt's bedside to explained availability of the [facility] LC services. Instructed on listed patient education: STEPHEN, Benefits of mother's own milk for the infant, breast massage and hand expression,CDC pump cleaning & sanitizing guidelines. Mom was measured for flange fit. Her measurement is 22 mm bilaterally. She was given a pair of 27 mm flanges as her nipples are very thick and somewhat elastic. Mom encouraged to massage breasts before and during pumping. Instructed in hand expression/massage techniques.She was encouraged to pump every 3 hours to help establish her milk supply. Mom reports that she has a pump for home use that she got through her insurance. She reports that she wants to get an additional pump through her secondary insurance. I will place an order to [employer] to see if they will issue her an additional pump. I did tell her that it most likely will not go through. Mom was invited to contact services as needed. Patient meets criteria for home monitoring of blood pressure post discharge. Reason: current preeclampsia with severe features. Met with patient to assess for availability of home BP monitor. Patient stated she owns home BP monitor. Patient educated on importance of continuing to monitor BP at home, recording BP on home monitoring log and s/sx of when to call her provider. Pt verbalized understanding the above information. Problem: Hypertensive Disorder of (HDP) Goal: Minimal s/sx of HDP and BP<160/110 Outcome: Progressing Goal: Adequate urine output (0.5 ml/kg/hr) Outcome: Progressing Problem: Pain - Adult Goal: Verbalizes/displays adequate comfort level or baseline comfort level Outcome: Progressing Problem: Safety - Adult Goal: Free from fall injury Outcome: Progressing Problem: Chronic Conditions and Co-morbidities Goal: Patient's chronic conditions and co-morbidity symptoms are monitored and maintained or improved Outcome: Progressing Problem: Goal: Experiences normal course Outcome: Progressing Goal: Appropriate maternal - bonding Outcome: Progressing Goal: Establish and maintain feeding pattern for adequate nutrition Outcome: Progressing Goal: Incisions, wounds, or drain sites healing without S/S of infection Outcome: Progressing Goal: No s/sx infection Outcome: Progressing Goal: No s/sx of hemorrhage Outcome: Progressing Goal: Minimal s/sx of HDP and BP<160/110 Outcome: Progressing The patient's goals for the shift include Rest The clinical goals for the shift include Meet milestones Over the shift, the patient did make progress toward the following goals. Patient visiting in NICU and agreeable to plan of care. Images from the original note were not included. Clinical Update S: Pt reports that she is feeling well, denies NIELSEN, SOB, RUQ pain, chest pain, or other concerns. O: BP (!) 143/85 Pulse 76 Temp 36.7 C (98.1 F) (Temporal) Resp 18 Ht 1.638 m (5' 4.5) Wt 141 kg (310 lb 13.6 oz) SpO2 98% Yes BMI 52.53 kg/m Blood Pressures 02/12/2025 1343 02/12/2025 1358 02/12/2025 1427 02/12/2025 1507 02/12/2025 1631 BP: 154/80 148/75 139/78 150/77 143/85 General: no acute distress HEENT: normocephalic, atraumatic Heart: warm and well perfused Lungs: breathing comfortably on room air Extremities: moving all extremities Neuro: awake and conversant, reflexes per leadership coach: normal mood Skin: no rashes or lesions visualized A/P: BP trend reviewed with patient and recommending change of regimen to Nifed 60 mg daily Will give additoinal dose of Nifed 30 mg now Remains Asx Continue Mg infusion All questions answered to pt's satisfaction Discussed with Dr. William He MD, MPH Obstetrics & Gynecology, PGY-1 The patient's goals for the shift include with skin to skin if able The clinical goals for the shift include FHR remain reassuring during IOL Vaginal Delivery Note Patient Name: Dayna Tinsley : 1991 Age: 33 y.o. /Para: Gestational Age: 32w3d Date of Delivery: 02/12/2025 Procedure: Normal Spontaneous Vaginal Delivery Delivery Provider: Jose Guadalupe Gupta MD Resident/Fellow/Other Entrepreneur: Hanane Malagon MD / Luz Thomas MD Description of Procedure: Delivery of viable under epidural anesthesia. Delayed clamping was performed. The infant was placed skin to skin.. Cord gases were sent. Cord blood was collected. Pt requested no traction on her umbilical cord for placental delivery. The placenta spontaneously delivered intact and fundus was firm No lacerations identified. Findings: Amniotic fluid Clear, Female in Vertex Occiput Anterior presentation, APGARS 6 , 8 . Weight 2.56 kg. Complications: None Quantitative Blood Loss: Delivery Blood Loss Intrapartum & : 02/08/251805 - 02/12/25 120 Delivery Admission: 02/08/251805 - 02/12/25 120 Intrapartum & Delivery Admission None Blood products: Uterotonics/Hemostatic Agent: IV Pitocin 30 units Specimen: Placenta Delivered: Appearance: Intact Removal: Spontaneous Disposition: Sponge/Instrument/Needle Counts: The sponge, lap and needle counts were correct. Patient Disposition: Patient recovering on labor and delivery in stable condition. Additional Procedures: None Dinh Tinsley [[id number]] Labor Events Rupture date/time: 02/11/2025 190 Rupture type: Artificial Fluid color: Clear Fluid odor: None Labor type: Induced Onset of Labor Labor allowed to proceed with plans for an attempted vaginal ?: Yes Induction: Taveras/EASI, Misoprostol First cervical ripening date/time: 02/11/2025126 Induction date/time: 02/11/2025126 Induction indications: Hypertensive Disorder of Complications: None Labor Event Times Labor onset date/time: 02/08/20251805 Dilation complete date/time: 02/11/2025 1118 Start pushing date/time: 02/12/2025 112 Placenta Placenta delivery date/time: Placenta removal: Spontaneous Placenta appearance: Intact Cord Vessels: 3 vessels Complications: None Delayed cord clamping?: Yes Cord clamped date/time: 02/12/2025 11:30:00 Cord blood disposition: Lab Gases sent?: No Cord comments: sent to nicu Stem cell collection (by provider): No Lacerations Episiotomy: None Perineal laceration: None Anesthesia Method: Epidural Operative Delivery Forceps attempted?: No Vacuum extractor attempted?: No Shoulder Dystocia Shoulder dystocia present?: No [place] Delivery Time head delivered: 02/12/2025 11:30:00 date/time: 02/12/2025 11:30:00 Delivery type: Complications: None Resuscitation Method: Tactile stimulation, Continuous positive airway pressure (CPAP), Suctioning Apgars Living status: Living Component Scores: 1 min.: 5 min.: 10 min.: 15 min.: 20 min.: Skin color: 0 1 Heart rate: 2 2 Reflex irritability: 1 2 Muscle tone: 1 1 Respiratory effort: 2 2 Total: 6 8 Apgars assigned by: Kevin RODRÍGUEZ DO Delivery Providers Delivering clinician: Jose Guadalupe Gupta MD Provider Role Erin Schmidt RN Delivery Nurse Josie Cheng, RN Nursery Nurse Hanane Malagon MD Resident Luz Thomas MD Resident Cosigned by Jose Guadalupe Gupta MD at 02/12/2025 1:05 PM EDT Associated attestation - Jose Guadalupe Gupta MD - 02/12/2025 1:05 PM EDT I was present for the entirety of the procedure(s). Jose Guadalupe Gupta MD LABOR PROGRESS NOTE SUBJECTIVE Patient doing well with epidural and pitocin infusing. Feeling intermittent contractions. OBJECTIVE Visit Vitals BP 121/62 Pulse 75 Temp (!) 35.9 C (96.6 F) Resp 18 Cervical Exam Dilation: 5 Effacement (%): 80 Station: -1 Presentation: Vertex (confirmed by BSUS by Deleon) Method: Manual OB Examiner: Brandee Thomas Assessment Movement: Present Mode: scalp electrode Baseline Heart Rate (bpm): 140 bpm Baseline Classification: Normal Variability: Minimal (Less than 5 BPM) Pattern: (okay to continue Pitocin at this time per Angel Thomas) Pattern Observations: RN attempting to maintain CEFM at bedside throughout half hour. Multiple Births: No Decelerations: No Contraction Frequency: 1.5-5 A&P IOL Labor course: 1930 0.5/50/-3 0130 CRB/Cyto#1 0500 cyto2 0830 350/-3 1230 4/70/-3, pit turned off at request 1445 pit restarted 1615 70/-3 1900 unchanged, AROM, IUPC 2330 480/-2 0200 unchanged, FSE 0445 pit paused for lates 0530 unchanged 0600 pit on 0830 -2, IUPC replaced 1045 1 - Continue to monitor for cervical change - continue pitocin sPEC - dx based on sustained severe range BPs requiring acute IV treatment and unrelenting headache - HELLP negx2, P:C 0.17 - Nifed 30 daily, Bps currently normotensive to low mild range - on Mg gtt until 24 hours - s/p negative head imaging - NIELSEN currently minimal, will continue to treat GDMA2 - Received NPH 74 last night and NPH 37 this AM. - D5 currently running due to episodes of hypoglycemia - For q4H BG checks, SSI Luz Thomas MD Feeling more pressure, requesting cervical exam SVE FHT: 145/mod/-accel/-decel [place] q2-3min IOL -Latent labor, unchanged exam. FSE/IUPC in place -Pit paused for late decelerations and minimal variability, now with moderate variability and no decelerations for the last 30 minutes. Plan to restart pitocin now -S/p AROM @ 1900 -CEFM, currently Cat I -Epidural infusing sPEC - dx based on sustained severe range BPs requiring acute IV treatment and unrelenting headache. NIELSEN currently minimal - s/p negative head imaging - required treatment with labetalol 20 mg on admission - HELLP negx2, P:C 0.17 - Nifed 30 daily, Bps currently normotensive to mild range - on Mg gtt until [address] Motta PGY4 Fide Deleon MD, PGY-2 To bedside for difficulty tracing FHR for the last 35 minutes. Patient sleeping and frequently turning, adding to difficulty tracing. Discussed FSE to aid in pitocin titration and for more accurate assessment, patient amenable. SVE FHT: 150/mod/+accel/-decel [place] q2-3min Latent labor, unchanged exam. FSE placed Continue pitocin per protocol. S/p AROM @ 1900 CEFM, currently Cat I Epidural infusing Fide Deleon MD, PGY-2 Requesting cervical exam. Also feels like baby flipped and wants to rescan for presentation. SVE 4/80/-2 FHT: 150/mod/+accel/-decel [place] q2-3min Latent labor Cephalic on BSUS Continue pitocin per protocol. S/p AROM @ 1900 CEFM, currently Cat I Epidural infusing Fide Deleon MD, PGY-2 Feeling more pressure with contractions, requesting cervical exam SVE 4/70/-3, unchanged from prior FHT: 145/mod/+accel/-decel [place] q2-3min Continue pitocin per protocol. S/p AROM @ 1900 CEFM, currently Cat I Epidural infusing Fide Deleon MD, PGY-2 To bedside for AROM. BSUS cephalic. head was palpated w/o other presenting parts. AROM for clear fluid with fundal pressure. SVE 4/70/-3, unchanged from prior FHT: 140/mod/+accel/-decel [place] irregular, q2-3min Continue pitocin per protocol CEFM, currently Cat I Epidural infusing S/p AROM for clear IUPC placed to monitor contractions Seen & Discussed with Dr. Motta, PGY4 Fide Deleon MD, PGY-2 To bedside for cervical exam at patient request. Pitocin has been restarted. Patient feeling nauseous and flushed and feels like her sugar is low. SVE /-3, unchanged from prior FHT: 140/mod/+accel/-decel [place] irregular, q1-2min BG 72 Continue pitocin per protocol CEFM, currently Cat I Epidural infusing Drinking juice now, will recheck BG shortly Transition fluids to D5LR Zofran for nausea Elyssa He MD PGY-4, Obstetrics and Gynecology Clinical Update S: Pt reports improvement in headache, wants to nap currently. Amenable to restarting pitocin infusion. O: BP (!) 142/86 Pulse 80 Temp 36 C (96.8 F) (Temporal) Resp 18 Ht 1.638 m (5' 4.5) Wt 141 kg (310 lb 13.6 oz) SpO2 (!) 93% BMI 52.53 kg/m A/P Restarting pitocin at this time Remains normotensive to mild range BG trend reviewed, last within range, no SSI indicated per protocol Plan for next cervical exam at around 1630 or earlier for FHT changes if indicated Elva He MD, MPH Obstetrics & Gynecology, PGY-1 Labor Progress Note Subjective: Patient resting comfortably, not feeling contractions. Reports headache is still present but has greatly improved with medications given. Denies chest pain, shortness of breath, RUQ pain, or other concerns. She would like to wait for her support person, Joel, to arrive this evening before having her baby. Objective: Vitals: BP 133/64 Pulse 73 Temp (!) 35.8 C (96.4 F) Resp 18 Ht 1.638 m (5' 4.5) Wt 141 kg (310 lb 13.6 oz) SpO2 100% BMI 52.53 kg/m SVE: /-3 FHT: 145/moderate/+accels/-deccels [place]: q 2 mins A/P: Patient requesting pause in pitocin, currently at 2. Membranes intact CEFM, currently Category I Epidural as requested/Epidural infusing Elva He, MD, MPH Obstetrics & Gynecology, PGY-1 Patient resting comfortably in bed. Amenable to exam to check CRB placement and second cytotec, if appropriate Cervical Exam Dilation: Fingertip Effacement (%): 50 Station: -3 Presentation: Vertex Method: Manual OB Examiner: MD Pancho Assessment Movement: Present Mode: External US Baseline Heart Rate (bpm): 150 bpm Baseline Classification: Normal Variability: Moderate (Between 6 and 25 BPM) Pattern: Accelerations Pattern Observations: Pancho SEAMAN at bedside performing ultrasound Multiple Births: No Decelerations: No Contraction Frequency: irritability A/P: IOL - CRB in place. Second cytotec placed - Epidural infusing - CEFM; Cat 1 currently - GBS pending, PCN Plan - Patient desires CRB and cyto induction. After discussion, she is okay with standard continuous infusion of pitocin as opposed to pulses of low dose pitocin - Patient desires immediate skin to skin along with delivering her own baby hands over hands with the provider and delayed cord clamping after pulseless cord. Also desires to cut own cord. Discussed that this may be difficult d/t variables such as length of cord and status of baby at the time of delivery. Patient understands that assessment under the warmer will be required shortly after delivery and is okay with baby on chest during delayed cord clamping, if appropriate. - Patient desires to be able to go with baby to NICU to prior negative experiences missing care of her . Discussed that she will be on 24 hours of Mg , but patient desires to be taken by nursing to NICU while on Mg. Discussed this is dependent on staffing and BP control. Will continue to readdress Fide Deleon MD, PGY-2 Labor induction asset protection officer at bedside to rescan for presentation as fetus previously found to be oblique. After draining bladder with taveras catheter placement and position changes, fetus now cephalic on BSUS. CRB and Cyto#1 placed at that time. For second dose in 3 hours if CRB still in situ, FHR reassuring and contractions aren't too frequent. PCN started for GBS unk. FHR: 140/mod/+accel/-decel [place]: no contractions D/w Dr. Hilda Tucker MD, PGY-3 ANTEPARTUM CHECK IN NOTE SUBJECTIVE Patient doing well with no vision changes, no RUQ pain. She has no CP, no SOB. She has no vb, no lof, no ctx, and feels good FM. She states that she continues to have her 310 pulsating NIELSEN with minimal improvement with medications. OBJECTIVE Visit Vitals BP 124/63 Pulse 106 Temp 36.3 C (97.3 F) (Temporal) Resp 18 Cervical Exam Dilation: Fingertip Effacement (%): 50 Station: -3 Presentation: Cephalic Method: Manual OB Examiner: MD Pancho Assessment Movement: Present Mode: External US Baseline Heart Rate (bpm): 135 bpm Baseline Classification: Normal Variability: Moderate (Between 6 and 25 BPM) Pattern: Accelerations Pattern Observations: unable to determine periodic changes Multiple Births: No Decelerations: No Contraction Frequency: none A&P sPEC - dx based on sustained severe range BPs requiring acute IV treatment and unrelenting headache - required treatment with labetalol 20 mg on admission - HELLP negx2, P:C 0.17 - Nifed 30 daily, Bps currently normotensive to low mild range - on Mg gtt due to NIELSEN - NIELSEN continues to be persistent, currently 3/10, will continue to treat. Discussed with MFM, okay to start induction at 6pm in anticipation of delivery after BMZ complete time GDMA2 - Current regimen: NPH 74/74, lispro 74u with meals, lispro 18u with snacks, last BG 124 - Diabetic diet - for q4h BG in latent and active labor Wellbeing - Cat I tracing - Last cephalic presentation on 02/09 PM - GBS pending 02/08 - sp BMZ 02/08-02/09 - Last growth on 02/05 2395g 99%, AC >99% - sp NICU consult Luz Thomas MD The patient's goals for the shift include blood sugar control and blood pressure control The clinical goals for the shift include reassuring FHT, no signs or symptoms of preeclampsia, blood pressures under 160/110, blood sugar on insulin gtt and beta Over the shift, the patient did make progress toward the following goals Problem: Antepartum Goal: Maintain as long as maternal and/or condition is stable Outcome: Progressing Goal: Avoid/minimize constipation Outcome: Progressing Goal: No decrease in circulation/VTE Outcome: Progressing Goal: FHR remains reassuring Outcome: Progressing Goal: Minimize anxiety/maximize coping Outcome: Progressing Problem: Hypertensive Disorder of (HDP) Goal: Minimal s/sx of HDP and BP<160/110 Outcome: Progressing Goal: Adequate urine output (0.5 ml/kg/hr) Outcome: Progressing Problem: Pain - Adult Goal: Verbalizes/displays adequate comfort level or baseline comfort level Outcome: Progressing Problem: Safety - Adult Goal: Free from fall injury Outcome: Progressing Problem: Discharge Planning Goal: Discharge to home or other facility with appropriate resources Outcome: Progressing Problem: Chronic Conditions and Co-morbidities Goal: Patient's chronic conditions and co-morbidity symptoms are monitored and maintained or improved Outcome: Progressing Problem: Diabetes Goal: Achieve decreasing blood glucose levels by end of shift Outcome: Progressing Goal: Maintain electrolyte levels within acceptable range throughout shift Outcome: Progressing Goal: Maintain glucose levels >70mg/dl to <250mg/dl throughout shift Outcome: Progressing Goal: No changes in neurological exam by end of shift Outcome: Progressing Goal: Learn about and adhere to nutrition recommendations by end of shift Outcome: Progressing Goal: Vital signs within normal range for age by end of shift Outcome: Progressing Goal: Increase self care and/or family involovement by end of shift Outcome: Progressing Goal: Receive DSME education by end of shift Outcome: Progressing To bedside to evaluate patient after nurse reports headache returned and she is now having dark spots. Patient reports posterior headache that goes down the back of her neck and is associated with muscle spasms. Also states that she feels pressure behind her eyes, worsening swelling in her face and extremities, nausea, and dark spots in the periphery of her vision. Denies RUQ pain, chest pain, SOB. BP 120/63 Pulse 82 Temp 36.1 C (97 F) (Temporal) Resp 18 Ht 1.638 m (5' 4.5) Wt 141 kg (310 lb 13.6 oz) SpO2 98% BMI 52.53 kg/m BG 109 A/P: - Will restart magnesium gtt now - Draw repeat HELLP labs - Treat with flexeril, phenergan (previously given tylenol, benadryl without improvement) - If no improvement, consider head imaging Elyssa He MD PGY-4, Obstetrics and Gynecology Update in plan of care Headache improving, 12/15. Denies vision changes, CP, SOB, RUQ pain. No obstetric concerns. Vitals: 02/08/25 2328 BP: Pulse: Resp: Temp: 36.8 C (98.2 F) SpO2: General: Lying in bed in NAD Skin: No rashes/lesions/erythema Neuro: Awake, alert, conversational CV: Regular rate Respiratory: Even and unlabored on RA Extremities: No edema, discoloration, or pain in BLE Psych: appropriate mood and affect Cervical Exam Presentation: Transverse Method: Ultrasound OB Examiner: Pancoh Assessment Movement: Present Mode: External US Baseline Heart Rate (bpm): 150 bpm Baseline Classification: Normal Variability: Moderate (Between 6 and 25 BPM) Pattern: Accelerations Multiple Births: No Decelerations: No Contraction Frequency: irregular A/p: 33 yo at 32w0d here with newly dx sPEC gHTN --> sPEC - dx based on sustained severe range BPs requiring acute IV treatment and unrelenting headache - required treatment with labetalol 20 mg on admission - HELLP neg, P:C 0.17, repeat set pending for 6 hours (ordered for 0110) - NIELSEN improving - Continue Mg until BP stabilization and NIELSEN resolution - start Nifed 30 daily - monitor UOP GDMA2 - current regimen: NPH 62/62, lispro 60 with meals, lispro 15 with snacks - POCT 140, CGM 167; pt re-calibrated CGM - BHB, VBG wnl, Gap 9 - low c/f DKA - Insulin gtt with BMZ administration - Diabetic diet. For home lispro while on insulin drip while eating Contractions - [place]: irregular but difficult to trace pattern d/t maternal movement - suspect r/t dehydration - FT/50/-3 N/V/D - lipase, covid/flu, CMP wnl - Patient reports these symptoms History of Depression - previously on Doxepin - continue to monitor - plan SW consult Wellbeing - Cat I tracing - GBS collected - BMZ #1, for second dose in 24H if still - Last growth on 01/15 at 28.3 wga: 1588g (96% with AC 93%) - Polyhydramnios on 01/22 --> resolved on 01/29 US - MFM and NICU consults Contraception - declines Seen & Discussed with Dr. Joslyn Deleon MD, PGY-2 documented in this encounter [facility] Work Phone: 02-15-2025 Plan of care note Problem: Hypertensive Disorder of (HDP) Goal: Minimal s/sx of HDP and BP<160/110 Outcome: Met Flowsheets (Taken 02/15/2025 1043) Minimal s/sx of HDP and BP <160/110: Med administration/monitoring of effect Monitor for s/sx of worsening HDP Goal: Adequate urine output (0.5 ml/kg/hr) Outcome: Met Problem: Pain - Adult Goal: Verbalizes/displays adequate comfort level or baseline comfort level Outcome: Met Problem: Safety - Adult Goal: Free from fall injury Outcome: Met Problem: Discharge Planning Goal: Discharge to home or other facility with appropriate resources Outcome: Met Problem: Goal: Experiences normal course Outcome: Met Goal: Appropriate maternal - bonding Outcome: Met Goal: No s/sx infection Outcome: Met Goal: No s/sx of hemorrhage Outcome: Met The patient's goals for the shift include to board to be close to baby The clinical goals for the shift include Patient will continue to meet PP milestones Patients fundal and lochia assessment has been wnl, patients pain has been adequately controlled with prescribed medication management. Patient meeting all PP milestones and has maintained appropriate bonding for discharge. Discharge instructions reviewed and given to patient, all questions answered. [facility] Work Phone: 02-15-2025 Hospital Discharge instructions Myriam Damian RN - 02/15/2025 10:43 AM EDT Follow-up in 2-5 days for BP check - Follow-up in 1-2wks for incision check - Follow-up in 4-6wks with primary OGYN Any woman can have complications after a including a blood clot, a heart problem, hypertensive disorder/eclampsia, depression, hemorrhage, or infection. Notify all providers of your delivery date up to one year after .* Call 911 or go to nearest emergency room right away if you have: PAIN or pressure in chest; OBSTRUCTED breathing or shortness of breath; SEIZURES; THOUGHTS of hurting yourself or someone else; heart palpitations/racing; change in alertness/confusion. Call your provider if you have: BLEEDING, soaking through a pad/hour, or blood clots the size of an egg or bigger; INCISION (episiotomy stitches or site) that is not healing (increased redness, pain, drainage/pus, or separation) if you had one; RED or swollen leg/calf that is painful or warm to touch, especially in one leg more than the other; TEMPERATURE of 100.4 F or higher or chills; HEADACHE that does not get better with medicine, rest or hydration, or bad headache with vision changes like spots or flashing lights; increased swelling of face, hands or legs; severe cramps or upper right belly pain; red or swollen breast that is painful or warm to touch; an unusual, foul odor from your vaginal discharge; pain, burning, or difficulty during urination; severe constipation (more than 5 days); feelings of depression (such as depressed mood, loss of interest in enjoyable things, unable to care for yourself, trouble sleeping, lack of appetite, or feeling worthless). If you can't reach your provider or symptoms worsen, call 911 or go to nearest emergency room. *Information obtained from [facility]: Save Your Life: Get Care for These POST- Warning Signs documented in this encounter [facility] Work Phone: 02-15-2025 Plan of care note Problem: Goal: Experiences normal course Outcome: Progressing Goal: Appropriate maternal - bonding Outcome: Progressing Goal: Establish and maintain infant feeding pattern for adequate nutrition Outcome: Progressing Goal: No s/sx infection Outcome: Progressing Goal: No s/sx of hemorrhage Outcome: Progressing Goal: Minimal s/sx of HDP and BP<160/110 Outcome: Progressing [facility] 02-14-2025 Obstetrics Note Non Destructive Testing Engineer Note Recommendations/Summary Attempted to see mother to discuss breast feeding/pumping. Mother not in room, letter left. [facility] 02-14-2025 History of Present illness Narrative Progress Note Assessment/Plan Dayna Tinsley is a 33 y.o., , who was admitted on 02/08/2025 for sPEC, delivered at 32w3d gestation via Vaginal, Spontaneous. Her was complicated by GDMA2 sPE s/p Mag gtt, Hx of HEELP - diagnosed by unrelenting headache, and severe range blood pressure's - s/p acute treatment with labetalol 20mg on admission - asymptomatic - HELLP labs negative, and P:C 0.17 - Nifedipine ER 60 mg AM/Nifedipine 30mg PM - Normotensive to mild range on PPD#2 - reviewed 3 day stay for BP monitoring, pt verbalized understanding and is agreeable to plan - BP cuff for home Routine Care Now PPD#2 s/p Vaginal, Spontaneous on 02/12/2025 -Meeting milestones -Discussed importance of movement and bowel regimen -Continue routine care -Pain well controlled on PO medications -DVT Score (IF A SCORE IS NOT CALCULATING, MUST SELECT A BMI TO COMPLETE): 5 - encourage ambulation, SCDs, and ppx lovenox -O POS, Rhogam not indicated - EBL 384 mL - Hgb: Results from last 7 days Lab Units 02/09/25 1711 02/09/25 0105 02/08/25 1910 HEMOGLOBIN g/dL 10.6* 11.2* 11.9* GDMA -Declines 2hr ogtt -Prefers 6 week Hgb A1c evaluation -Desires to discuss starting Ozempic with PCP, concerned about weight gain Hx of Chron's -No NSAID's -Per patient reporting h/o Crohn's disease with bowel resection in childhood. Reporting remission x 10 year. Per documentation from P1 at [facility] colonoscopy: 05/2015 -No endoscopic findings to suggest diagnosis of Crohn's disease. 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 Knows them well and trusts them -Established with [employer] a virtual platform for counseling through her employer, prefers this over OB psych referral -Denies SI/HI Maternal Well-Being -Bonding appropriately with female infant in NICU -Emotional support provided, course anticipatory guidance provided, reviewed normal expectations and maternal warning signs -Provided family centered care, and addressed all questions and concerns Feeding -The patient is breast feeding/pumping -Counseled patient on importance of on demand feeding or pumping atleast 8-10 times daily to promote adequate supply. -/pumping encouraged, consult ordered, PRN Contraception - Defers contraception to primary OB/PP visit. We discussed spacing of at least one year, abstaining from intercourse for 6wks, and the ability to become in the absence of regular menses. Pt verbalized understanding. - Encouraged to continue PNV Dispo - Anticipate d/c on PPD #3 if meeting all milestones - Follow-up in 2-5 days for BP check - Follow-up in 1-2wks for incision check - Follow-up in 4-6wks with primary EZ Solis APRN-LILI, CLC 02/14/25 8:37 AM vocera Assessment & Plan Severe preeclampsia, third trimester ([facility]) Problems (from 12/23/24 to present) Problem Noted Diagnosed Resolved Severe preeclampsia, third trimester ([facility]) 02/08/2025 by PRABHA Jules No Priority: Medium History of loop electrosurgical excision procedure (LEEP) of cervix affecting in second trimester 01/08/2025 by Paulette Romero MD No Priority: Medium headache in third trimester ([facility]) 01/08/2025 by Paulette Romero MD No Priority: Medium Overview Signed 01/15/2025 12:27 PM by Veena Duvall MD Headches starting to worsen around 25 wks til present. Assoc w/ floaters over last few days. No hx of migraines. S/p triage visit 01/14, improved with meds and normotensive so discharged home. 32 weeks gestation of ([facility]) 01/01/2025 by Ramirez Tucker MD No Priority: Medium Overview Addendum 01/29/2025 1:52 PM by Veena Duvall MD Desired provider in labor: [] CNM [x] Physician [] Either Acceptable [] Blood Products: [] Yes, accepts [] No, needs counseling [x] Initial BMI: Could not be calculated [x] Labs: media tab [x] Cervical Cancer Screenin NILM/HPV other+ [x] Rh status: O pos [] Screen for IPV and Substance Use Risk: [] Genetic Screening (cfDNA): [x] First Trimester Anatomy Screen (11-13.6 wks): wnl 09/30 out of window [x] dated by: 13 wk US [x] Anatomy US: (19-20 wks), 01/01 [] Federal Sterilization consent signed (if indicated): [x] 1hr GCT at 24-28wks: GDMA2 started on insulin in triage [x] Rhogam (if indicated): NA [x] Surveillance (if indicated): weekly testing @32 wks, serial growths (27-32 wks, may be given up to 36 wks if initial window missed): declines all vaccines 01/08 (32-36 wks) ( to end nov): missed window [x] Feeding Intentions: [x] control method: declines [] GBS at 34-35 wks: [x] 39 weeks discussion of IOL vs. Expectant management: anticipate IOL at 37wga at the latest for gHTN [x] Mode of delivery ( anticipated ): Crohn disease (Multi) 01/01/2025 by Ramirez Tucker MD No Priority: Medium Overview Signed 01/01/2025 3:14 PM by Ramirez Tucker MD Patient reporting h/o Crohn's disease with bowel resection in childhood. Reporting remission x 10 year. Per documentation from P1 at [facility] colonoscopy: 05/2015 - No endoscopic findings to suggest diagnosis of Crohn's disease. - The examined portion of the ileum was normal. Biopsied. - The entire examined colon is normal on direct and retroflexion views. Biopsied. 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 Underwent EEG monitoring that was unremarkable for seizure activity Depression affecting in third trimester, antepartum ([facility]) 01/01/2025 by Ramirez Tucker MD No Priority: Medium Overview Addendum 01/22/2025 9:53 AM by Veena Duvall MD With associated anxiety. On Doxepin daily and prn Valium. follows with Dr. Rasmussen at [facility] Gestational hypertension, third trimester ([facility]) 12/25/2024 by Paulette Torrez MD No Priority: Medium Overview Addendum 02/04/2025 11:51 PM by Ramirez Tucker MD Reports h/o cHTN prior to P1 , resolved after Patient reporting h/o preeclampsia x3 and HELLP vs eclampsia in most recent , reporting concern for seizures. Received care for previous pregnancies in [place] and reporting that she is declines release of records. Denies h/o HTN outside of , although documented elevated blood pressures outside of at ED visits in 2022. During admission 12/23-12/25, discussed with patient that there is a possibility of super-imposed chronic hypertension that is contributing to her current presentation. She did have two unsustained severe range blood pressures while admitted, both during period of stress. Given high likelihood of patient with history of chronic hypertension, will not diagnose super-imposed pre-eclampsia during this admission. Also discussed with patient that given her reported significant history of SPEC, HELLP vs eclampsia, will treat her as being diagnosed with gestational hypertension. She will require twice weekly testing until delivery, delivery at 37.0 wga if not indicated sooner and weekly PEC labs. If the patient has two sustained severe range blood pressures, she is likely meeting criteria for SPEC vs siPEC w/SF. At the time of discharge, it was deemed that she should not be initiated on an oral anti-hypertensive. [x] [id number] [x] BP cuff ordered and education provided [x] Baseline preE labs: wnl (12/2024), neg 01/08, P:C 0.27 [x] Urine P:C: 0.27 (12/2024) [] Q3 week growth US: EFW 96%, AC 93% (01/15) [] Twice weekly testing w/ alternating BPPs and NSTs [x] Delivery timing and plan: 37.0 wga Insulin controlled gestational diabetes mellitus (GDM) in third trimester ([facility]) 12/25/2024 by Paulette Torrez MD No Priority: Medium Overview Addendum 01/29/2025 1:48 PM by Veena Duvall MD Patient presented to triage on 12/23/23 with blood glucose of 305. Reported a history of A2DM in 3 prior pregnancies. HgA1c 09/2024 was 5.4%. Patient denying diagnosis of pre gestational diabetes. HgA1c 12/2024 was 6.5%. Evaluated for DKA on admission, ruled out [] Attended [employer] [x] MFM Consult completed [] MFM 36 wk visit [] Serial growth ultrasounds starting at 28 weeks Last ultrasound: 01/15 (28wks) surveillance: [] Weekly at 32 weeks [] Twice weekly at 36 weeks Current Regimen: Regimen on discharge: NPH 20/30, Lispro 10 TID with meals (12/23) 12/29/2024: NPH 20/30 --> 30*/40* am/pm Lispro 10 with meals --> 15* with meals +SS 1unit for every 10 > 140 pre-meal check 01/01/2025 MFM visit 01/05/2025: NPH 30/40 -->40*/50* am/pm Lispro 15-20 --> 25* with meals 01/08/25 NPH 44/44 needs to space out more (stacking) -> consider transitioning to Lantus at next visit Lispro 30 with meals, 4 with snacks 01/15/25 NPH 44/44, Lispro 30-35 with meals. Reminded patient to space NPH appropriately. Increased interval growth and mild poly on US today. 01/21/2025: NPH 44/44 --> 44/50* Lispro 45 with meals --> 52* with meals +15 with snacks 01/29/2025: NPH 54/54. 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 She denies chest pain, cough, shortness of breath, headaches, vision changes, pain under right breast, fever, heavy vaginal bleeding, abdominal pain, dizziness, fatigue, or chills. She denies any breast concerns or emotional concerns at this time. Dayna Tinsley is PPD#2 s/p vaginal delivery who reports feeling overall well. She denies any concerns today. No acute events overnight. She is ambulating and urinating without difficulty. She is tolerating an adult regular diet, passing flatus, and has had a bowel movment She reports diarrhea today, denies any blood in stool. Reports that she has had recurrent C.diff in the past, no recent abx use. Discussed if continues >24 hours will collect stool sample. Does not express emotional concerns until she thinks about baby being in NICU, report that her mood is stable, denies SI/HI doesn't trust our OB psychiatry team prefers to stick withher resources that she has been using in . Objective Allergies: Solu-medrol mix-o-vial, Versed [midazolam], and Reglan [metoclopramide hcl] Last Vitals: Temp Pulse Resp BP MAP Pulse Ox 36.7 C (98.1 F) 80 20 122/71 99 % Vitals Min/Max Last 24 Hours: Temp Min: 36.2 C (97.2 F) Max: 36.9 C (98.4 F) Pulse Min: 70 Max: 88 Resp Min: 17 Max: 20 BP Min: 122/71 Max: 154/83 Physical Exam: Constitutional: examination reveals a well developed, well nourished, female, in no acute distress. She is alert, pleasant and cooperative. Cardiac: warm and well perfused, regular rate, S1, S2 normal, no murmur, click, rub or gallop Respiratory: Even and unlabored breathing in room air, clear to auscultation bilaterally. No crackles or wheezes. Fundus: Firm and below umbilicus Derm: Skin color, texture, turgor normal. No rashes, or lesions. Fundus: Firm, midline, at umbilicus Abdominal: soft, non-tender, non-distended, active bowel sounds x4, no masses, no organomegaly Extremities: Symmetrical, no redness or tenderness in the calves or thighs, no edema or discoloration Neurological: PERRLA. alert, oriented, normal speech, no focal findings or movement disorder noted. Psychological: Appropriate mood and affect. Awake and alert; oriented to person, place, and time. Skin: no rashes or lesions Lab Data: Labs in chart were reviewed. 0 Lab Value Date/Time UTPCR 0.17 02/08/2025 2039 UTPCR 246 (H) 01/22/2025 0912 UTPCR 0.246 (H) 01/22/2025 0912 UTPCR 0.24 (H) 01/08/2025 1626 UTPCR 278 (H) 01/01/2025 1501 UTPCR 0.278 (H) 01/01/2025 1501 UTPCR 0.27 (H) 12/23/2024 1804 Progress Note Assessment/Plan Dayna Tinsley is a 33 y.o., , who delivered at 32w3d gestation Now PPD#1 s/p Vaginal, Spontaneous on 02/12/2025 - Continue routine care - Pain well controlled on PO medications - DVT risk score: 5, ppx with SCDs, ambulation, and lovenox - RH positive, rhogam not indicated Severe pre-eclampsia Diagnosed by severe range BPs requiring IV treatment Last IV Tx with Labet 20 mg at 1915 on 02/08 Current antihypertensive regimen: Nifed 60 mg daily HELLP labs negative x2 P:C 0.17 Asymptomatic currently, headache resolved Continue magnesium 2g/hr for seizure prophylaxis, no signs/symptoms of mag toxicity Also Notable for: A2DM - prior to delivery was on NPH 74/74, lispro 74 with meals, snacks 18. Plan for GTT . Depression and hx of psychosis P2, on doxepin Complex social situation: does not have custody of other children, hx IPV in prior relationship Reports hx of HELLP in P5 c/b convulsions. Underwent EEG monitoring that was unremarkable for seizure activity Hx of cholecystectomy, LEEP Hx of bowel resection in s/o Crohn's disease in childhood, reporting remission x10 years, denies rectal/anal disease Maternal Well-Being Vitals stable All questions and concerns address [place] Feeding /pumping encouraged consult PRN Contraception none Education provided Dispo Anticipate d/c on PPD #3 if meeting all milestones Follow-up in 2-5 days for BP check Follow-up in 4-6wks with primary OGYN Patient seen and discussed with Dr. Khris He MD, MPH Obstetrics & Gynecology, PGY-1 Subjective Dayna Tinsley is PPD#1 s/p vaginal delivery who reports feeling overall well. No acute events overnight. Pain well controlled on PO meds. Light lochia. Tolerating diet. Denies NIELSEN, N/V, RUQ pain, vision changes, chest pain, or SOB. Denies dizziness/lightheadedness. Not yet ambulating per magnesium protocol. Voiding by bedside commode. Reports she is hoping to pump/breastfeed and would accept donor milk if she does not produce enough milk. Reports feeling less anxious than earlier. Objective Allergies: Solu-medrol mix-o-vial, Versed [midazolam], and Reglan [metoclopramide hcl] Last Vitals: Temp Pulse Resp BP MAP Pulse Ox 36.2 C (97.2 F) 75 18 (!) 142/76 99 % Vitals Min/Max Last 24 Hours: Temp Min: 35.9 C (96.6 F) Max: 36.9 C (98.4 F) Pulse Min: 64 Max: 133 Resp Min: 15 Max: 20 BP Min: 121/62 Max: 156/83 Intake/Output: Intake/Output Summary (Last 24 hours) at 02/13/2025 0824 Last data filed at 02/13/2025 0730 Gross per 24 hour Intake 2331.67 ml Output 6009 ml Net -3677.33 ml Physical Examination: General: no acute distress, alert and cooperative HEENT: normocephalic, atraumatic Heart: normal rate, regular rhythm Lungs: breathing even and unlabored, CTAB Abdomen: soft, non-distended, bowel sounds active Extremities: moving all extremities, no redness or tenderness in the calves or thighs, no edema. Neuro: awake and conversant, normal speech, reflexes normal bilaterally Psych: appropriate mood and affect Skin: no rashes or lesions Lab Review: Results from last 7 days Lab Units 02/09/25 1801 02/09/25 1711 02/09/25 0105 02/08/25 1910 WBC AUTO x10*3/uL -- 18.5* 19.1* 15.8* HEMOGLOBIN g/dL -- 10.6* 11.2* 11.9* HEMATOCRIT % -- 34.8* 35.4* 36.6 PLATELETS AUTO x10*3/uL -- 265 266 297 AST U/L 18 -- 10 9 ALT U/L 6* -- 7 7 CREATININE mg/dL 0.54 -- 0.52 0.51 Cosigned by Lona Pinedo MD at 02/13/2025 11:49 AM EDT Associated attestation - Lona Pinedo MD - 02/13/2025 11:49 AM EDT Attending attestation: I saw and evaluated the patient. I personally obtained the mixon and critical portions of the history and physical exam or was physically present for mixon and critical portions performed by the resident/DMITRI. I reviewed the resident/DMITRI's documentation and discussed the patient with the resident/DMITRI. I agree with the resident/DMITRI's medical decision making as documented in the note. Lona Pinedo MD OBGYN Attending Progress Note Assessment/Plan Dayna Tinsley is a 33 y.o., , who delivered at 32w3d gestation in the s/o sPEC and is now day 0. S/P on 02/12 - Doing well, pain well controlled with PO meds, afebrile, tolerating diet, voiding - Anti-emetics PRN and bowel regimen ordered - Continue routine care. - Feeding: pumping. Continue to encourage - control: declines - DVT risk score 5: ambulation once off Mg, SCDs, lovenox ppx Rubella status unknown - IgG collected 02/09 - Offer vaccine if nonimmune sPEC - Diagnosed based on severe range Bps requiring IV tx - s/p IV labetalol 0 - HELLP labs were negative x2, P:C 0.17 - headache now resolved - Nifed 30 mg + 30 -> Nifed 60 daily starting 02/13 - Mg until 02/13 1130 Dispo - Anticipate discharge on PPD#3 if continues to meet milestones & BP well controlled - Plan for BP check in 1 wk, visit in 4-6wks To be Discussed with Dr. Maco Deleon MD, PGY-2 Subjective Her pain is well controlled with current medications She is not ambulating while on Mg She is tolerating a Adult diet Regular She reports no breast or nursing problems She denies emotional concerns today Her plan for contraception is none Denies NIELSEN, CP, SOB, RUQ pain, or vision changes. Bleeding has been appropriate. Objective Allergies: Solu-medrol mix-o-vial, Versed [midazolam], and Reglan [metoclopramide hcl] Last Vitals: Temp Pulse Resp BP MAP Pulse Ox 36.7 C (98.1 F) 70 18 (!) 148/70 100 98 % Vitals Min/Max Last 24 Hours: Temp Min: 35.8 C (96.4 F) Max: 36.9 C (98.4 F) Pulse Min: 65 Max: 133 Resp Min: 16 Max: 20 BP Min: 118/58 Max: 158/83 MAP (mmHg) Min: 82 Max: 110 Intake/Output: Intake/Output Summary (Last 24 hours) at 02/12/2025 1736 Last data filed at 02/12/2025 1631 Gross per 24 hour Intake 3189.56 ml Output 5187 ml Net -1997.44 ml Physical Exam: General: Examination reveals a well developed, well nourished, female, in no acute distress. She is alert and cooperative. HEENT: PERRLA. External ears normal. Lungs: clear to auscultation bilaterally. Cardiac: Warm and well perfused. Abdomen: Soft, nontender. Extremities: Symmetric, full ROM. Neurological: alert, oriented, normal speech, no focal findings or movement disorder noted. Lab Data: No results found for: WBC, HGB, HCT, PLT No results found for: GLUCOSE, NA, K, CL, CO2, ANIONGAP, BUN, CREATININE, EGFR, CALCIUM, ALBUMIN, PROT, ALKPHOS, ALT, AST, BILITOT 0 Lab Value Date/Time UTPCR 0.17 02/08/2025 2039 UTPCR 246 (H) 01/22/2025 0912 UTPCR 0.246 (H) 01/22/2025 0912 UTPCR 0.24 (H) 01/08/2025 1626 UTPCR 278 (H) 01/01/2025 1501 UTPCR 0.278 (H) 01/01/2025 1501 UTPCR 0.27 (H) 12/23/2024 1804 Cosigned by Tahira Dewey MD at 02/12/2025 6:19 PM EDT Associated attestation - Tahira Dewey MD - 02/12/2025 6:19 PM EDT I saw and evaluated the patient. I personally obtained the mixon and critical portions of the history and physical exam or was physically present for mixon and critical portions performed by the resident/fellow. I reviewed the resident/fellow's documentation and discussed the patient with the resident/fellow. I agree with the resident/fellow's medical decision making as documented in the note. Tahira Dewey MD Intrapartum Progress Note Assessment/Plan Dayna Tinsley is a 33 y.o. at 32w3d by 13wk US admitted with sPEC sPEC - dx based on sustained severe range BPs requiring acute IV treatment and unrelenting headache - required treatment with labetalol 20 mg on admission - HELLP negx2, P:C 0.17 - Nifed 30 daily, Bps currently normotensive to low mild range - on Mg gtt until 24 hours - s/p negative head imaging - NIELSEN currently minimal, will continue to treat IOL Labor course: 1930 0.550/-3 0130 CRB/Cyto#1 0500 cyto2 0830 50/-3 1230 /-3, pit turned off at request 1445 pit restarted 1615 /-3 1900 unchanged, AROM, IUPC 2330 /-2 0200 unchanged, FSE 0445 pit paused for lates 0530 unchanged 0600 pit on 08 5/-2, IUPC replaced - PCN for GBS unknown - pitocin turned off twice due to maternal request and then late decelerations, now Cat 1 tracing and pitocin at 10, will continue to increase Plan - Patient desires immediate skin to skin along with delivering her own baby hands over hands with the provider and delayed cord clamping after pulseless cord. Also desires to cut own cord. Discussed that this may be difficult d/t variables such as length of cord and status of baby at the time of delivery. Patient understands that assessment under the warmer will be required shortly after delivery and is okay with baby on chest during delayed cord clamping, if appropriate. - Patient desires to be able to go with baby to NICU to prior negative experiences missing care of her . Discussed that she will be on 24 hours of Mg , but patient desires to be taken by nursing to NICU while on Mg. Discussed this is dependent on staffing and BP control. Will continue to readdress - patient strongly desires to avoid section. Discussed that we also strongly desire to avoid section but reviewed reasons for discussion and recommendation of section including prolonged labor course and increased risk for bleeding and infection as well as distress. Patient expressed understanding and continues to strongly desire avoiding section. She also stated she wants to either be heavily medicated or placed under general to avoid trauma. Discussed risks associated with general anesthesia including faster procedure, respiratory distress of and increased bleeding due to vasodilation, patient expressed understanding and continues to desire general if CS required. GDMA2 - Home regimen: NPH 62/62, lispro 60 with meals, lispro 15 with snacks - s/p insulin gtt (Table 4) during BMZ, now transitioned to subQ with increased regimen - Current regimen: NPH 74/74, lispro 74u with meals, lispro 18u with snacks - Received NPH 74 last night and NPH 37 this AM. - D5 currently running due to episodes of hypoglycemia - For q4H BG checks, SSI, and CLD while with epidural. Per MFM, if consistently needing subQ coverage, start insulin gtt History of Depression - on Doxepin - continue to monitor - plan SW consult Wellbeing - Cat I tracing - sp BMZ 02/08-02/09 - Last growth on 02/05 2395g 99%, AC >99% - s/p NICU consult Contraception - declines Subjective Patient doing well with no vision changes, no RUQ pain. She has no CP, no SOB. She feels intermittent pressure with contractions, but is frustrated with lack of progress of her labor. She continues to have a mild NIELSEN 3/10. Objective Last Vitals: Temp Pulse Resp BP MAP Pulse Ox 36.1 C (97 F) 71 16 (!) 140/69 98 100 % Vitals Min/Max Last 24 Hours: Temp Min: 35.8 C (96.4 F) Max: 36.6 C (97.9 F) Pulse Min: 61 Max: 98 Resp Min: 16 Max: 19 BP Min: 118/58 Max: 158/83 MAP (mmHg) Min: 82 Max: 117 Intake/Output: Intake/Output Summary (Last 24 hours) at 02/12/2025 0852 Last data filed at 02/12/2025 0830 Gross per 24 hour Intake 4095.03 ml Output 6358 ml Net -2262.97 ml Physical Examination: Cervical Exam Dilation: 5 Effacement (%): 80 Station: -2 Presentation: Vertex (confirmed by [facility] by [facility]) Method: Manual OB Examiner: Angel Thomas Assessment Movement: Present Mode: scalp electrode Baseline Heart Rate (bpm): 135 bpm Baseline Classification: Normal Variability: Moderate (Between 6 and 25 BPM) Pattern: Accelerations Pattern Observations: RN attempting to maintain CEFM at bedside throughout half hour. Multiple Births: No Decelerations: No Contraction Frequency: 4-6 Cosigned by Jose Guadalupe Gupta MD at 02/12/2025 9:55 AM EDT Associated attestation - Jose Guadalupe Gupta MD - 02/12/2025 9:55 AM EDT I saw and evaluated the patient. I personally obtained the mixon and critical portions of the history and physical exam or was physically present for mixon and critical portions performed by the resident/fellow. I reviewed the resident/fellow's documentation and discussed the patient with the resident/fellow. I agree with the resident/fellow's medical decision making as documented in the note. Jose Guadalupe Gupta MD Antepartum Progress Note Assessment/Plan Dayna Tinsley is a 33 y.o. at 32w2d by 13wk US admitted with sPEC sPEC - dx based on sustained severe range BPs requiring acute IV treatment and unrelenting headache - required treatment with labetalol 20 mg on admission - HELLP negx2, P:C 0.17 - Nifed 30 daily, Bps currently normotensive to low mild range - on Mg gtt until 24 hours - s/p negative head imaging - NIELSEN currently minimal IOL - s/p ripening with CRB and cytotec - pitocin started at 1055, off briefly per pt request. Back on since 1500 - Amenable to AROM. Will rescan for presentation prior to AROM given unstable lie - PCN for GBS unknown GDMA2 - Home regimen: NPH 62/62, lispro 60 with meals, lispro 15 with snacks - s/p insulin gtt (Table 4) during BMZ, now transitioned to subQ with increased regimen - Current regimen: NPH 74/74, lispro 74u with meals, lispro 18u with snacks - Received NPH 74 last night and NPH 37 this AM. One episode of hypoglycemia this afternoon with BG of 66, incremented to 96 after snack and juice - For q4H BG checks, SSI, and CLD while with epidural. Per MFM, if consistently needing subQ coverage, start insulin gtt Plan - Patient desires immediate skin to skin along with delivering her own baby hands over hands with the provider and delayed cord clamping after pulseless cord. Also desires to cut own cord. Discussed that this may be difficult d/t variables such as length of cord and status of baby at the time of delivery. Patient understands that assessment under the warmer will be required shortly after delivery and is okay with baby on chest during delayed cord clamping, if appropriate. - Patient desires to be able to go with baby to NICU to prior negative experiences missing care of her . Discussed that she will be on 24 hours of Mg , but patient desires to be taken by nursing to NICU while on Mg. Discussed this is dependent on staffing and BP control. Will continue to readdress History of Depression - on Doxepin - continue to monitor - plan SW consult Wellbeing - Cat I tracing - GBS pending 02/08 - sp BMZ 02/08-02/09 - Last growth on 02/05 2395g 99%, AC >99% - Polyhydramnios on 01/22 --> resolved on 01/29 US - s/p NICU consult Contraception - declines To be Discussed with Dr. Tete Deleon MD, PGY-2 Subjective Feeling better after sugar has come up a bit. Headache minimal. Having some small floaters. No CP, or SOB, or RUQ pain. Has support people coming in this evening. Objective Allergies: Solu-medrol mix-o-vial, Versed [midazolam], and Reglan [metoclopramide hcl] Last Vitals: Temp Pulse Resp BP MAP Pulse Ox 36.4 C (97.5 F) 77 18 (!) 137/90 109 96 % Vitals Min/Max Last 24 Hours: Temp Min: 36 C (96.8 F) Max: 37.1 C (98.8 F) Pulse Min: 61 Max: 106 Resp Min: 17 Max: 20 BP Min: 119/64 Max: 155/92 MAP (mmHg) Min: 80 Max: 117 Intake/Output: Intake/Output Summary (Last 24 hours) at 02/11/2025 1758 Last data filed at 02/11/2025 1730 Gross per 24 hour Intake 3658.02 ml Output 6165 ml Net -2506.98 ml Physical Exam: General: Lying in bed in NAD Neuro: Awake, alert, conversational CV: Regular rate Respiratory: Even and unlabored on RA Extremities: Symmetric, Full ROM Psych: appropriate mood and affect Cervical Exam Dilation: 4 Effacement (%): 70 Station: -3 Presentation: Vertex Method: Manual OB Examiner: Ying SEAMAN Assessment Movement: Present Mode: External US Baseline Heart Rate (bpm): 135 bpm Baseline Classification: Normal Variability: Moderate (Between 6 and 25 BPM) Pattern: Accelerations Pattern Observations: RN attempting to maintain CEFM at bedside throughout half hour. Multiple Births: No Decelerations: No Contraction Frequency: 2-3.5 (some inverted) Lab Results Component Value Date WBC 18.5 (H) 02/09/2025 HGB 10.6 (L) 02/09/2025 HCT 34.8 (L) 02/09/2025 MCV 92 02/09/2025 PLT 265 02/09/2025 Lab Results Component Value Date GLUCOSE 113 (H) 02/09/2025 CALCIUM 8.0 (L) 02/09/2025 NA 135 (L) 02/09/2025 K 4.1 02/09/2025 CO2 17 (L) 02/09/2025 CL 106 02/09/2025 BUN 9 02/09/2025 CREATININE 0.54 02/09/2025 Lab Results Component Value Date ALT 6 (L) 02/09/2025 AST 18 02/09/2025 ALKPHOS 80 02/09/2025 BILITOT 0.6 02/09/2025 Cosigned by Suzette Epstein MD at 02/11/2025 10:37 PM EDT Associated attestation - Suzette Epstein MD - 02/11/2025 10:37 PM EDT I reviewed the resident/fellow's documentation and discussed the patient with the resident/fellow. I agree with the resident/fellow's medical decision making as documented in the note. Intrapartum Progress Note Assessment/Plan Dayna Tinsley is a 33 y.o. at 32w2d. VA: 04/06/2025, by Ultrasound. Patient undergoing IOL for sPEC. Assessment & Plan Severe preeclampsia, third trimester ([facility]) Problems (from 12/23/24 to present) Problem Noted Diagnosed Resolved Severe preeclampsia, third trimester ([facility]) 02/08/2025 by Dhara Bautista APRN-TRAILER RENTAL CLERK No Priority: Medium Polyhydramnios in third trimester ([facility]) 01/22/2025 by Veena Duvall MD No Priority: Medium Overview Addendum 01/29/2025 1:53 PM by Veena Duvall MD SERENA 27 on 01/22 -> resolved on 01/29 US History of loop electrosurgical excision procedure (LEEP) of cervix affecting in second trimester 01/08/2025 by Paulette Romero MD No Priority: Medium headache in third trimester ([facility]) 01/08/2025 by Paulette Romero MD No Priority: Medium Overview Signed 01/15/2025 12:27 PM by Veena Duvall MD Headches starting to worsen around 25 wks til present. Assoc w/ floaters over last few days. No hx of migraines. S/p triage visit 01/14, improved with meds and normotensive so discharged home. 31 weeks gestation of ([facility]) 01/01/2025 by Ramirez Tucker MD No Priority: Medium Overview Addendum 01/29/2025 1:52 PM by Veena Duvall MD Desired provider in labor: [] CNM [x] Physician [] Either Acceptable [] Blood Products: [] Yes, accepts [] No, needs counseling [x] Initial BMI: Could not be calculated [x] Labs: media tab [x] Cervical Cancer Screenin NILM/HPV other+ [x] Rh status: O pos [] Screen for IPV and Substance Use Risk: [] Genetic Screening (cfDNA): [x] First Trimester Anatomy Screen (11-13.6 wks): wnl 09/30 out of window [x] dated by: 13 wk US [x] Anatomy US: (19-20 wks), 01/01 [] Federal Sterilization consent signed (if indicated): [x] 1hr GCT at 24-28wks: GDMA2 started on insulin in triage [x] Rhogam (if indicated): NA [x] Surveillance (if indicated): weekly testing @32 wks, serial growths (27-32 wks, may be given up to 36 wks if initial window missed): declines all vaccines 01/08 (32-36 wks) ( to end of Nov): missed window [x] Feeding Intentions: [x] control method: declines [] GBS at 34-35 wks: [x] 39 weeks discussion of IOL vs. Expectant management: anticipate IOL at 37wga at the latest for gHTN [x] Mode of delivery ( anticipated ): Crohn disease (Multi) 01/01/2025 by Ramirez Tucker MD No Priority: Medium Overview Signed 01/01/2025 3:14 PM by Ramirez Tucker MD Patient reporting h/o Crohn's disease with bowel resection in childhood. Reporting remission x 10 year. Per documentation from P1 at [facility] colonoscopy: 05/2015 - No endoscopic findings to suggest diagnosis of Crohn's disease. - The examined portion of the ileum was normal. Biopsied. - The entire examined colon is normal on direct and retroflexion views. Biopsied. 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 Underwent EEG monitoring that was unremarkable for seizure activity Depression affecting in third trimester, antepartum ([facility]) 01/01/2025 by Ramirez Tucker MD No Priority: Medium Overview Addendum 01/22/2025 9:53 AM by Venea Duvall MD With associated anxiety. On Doxepin daily and prn Valium. follows with Dr. Rasmussen at [facility] Gestational hypertension, third trimester ([facility]) 12/25/2024 by Paulette Torrez MD No Priority: Medium Overview Addendum 02/04/2025 11:51 PM by Ramirez Tucker MD Reports h/o cHTN prior to P1 , resolved after Patient reporting h/o preeclampsia x3 and HELLP vs eclampsia in most recent , reporting concern for seizures. Received care for previous pregnancies in [place] and reporting that she is declines release of records. Denies h/o HTN outside of , although documented elevated blood pressures outside of at ED visits in 2022. During admission 12/23-12/25, discussed with patient that there is a possibility of super-imposed chronic hypertension that is contributing to her current presentation. She did have two unsustained severe range blood pressures while admitted, both during period of stress. Given high likelihood of patient with history of chronic hypertension, will not diagnose super-imposed pre-eclampsia during this admission. Also discussed with patient that given her reported significant history of SPEC, HELLP vs eclampsia, will treat her as being diagnosed with gestational hypertension. She will require twice weekly testing until delivery, delivery at 37.0 wga if not indicated sooner and weekly PEC labs. If the patient has two sustained severe range blood pressures, she is likely meeting criteria for SPEC vs siPEC w/SF. At the time of discharge, it was deemed that she should not be initiated on an oral anti-hypertensive. [x] [id number] [x] BP cuff ordered and education provided [x] Baseline preE labs: wnl (12/2024), neg 01/08, P:C 0.27 [x] Urine P:C: 0.27 (12/2024) [] Q3 week growth US: EFW 96%, AC 93% (01/15) [] Twice weekly testing w/ alternating BPPs and NSTs [x] Delivery timing and plan: 37.0 wga Insulin controlled gestational diabetes mellitus (GDM) in third trimester ([facility]) 12/25/2024 by Paulette Torrez MD No Priority: Medium Overview Addendum 01/29/2025 1:48 PM by Veena Duvall MD Patient presented to triage on 12/23/23 with blood glucose of 305. Reported a history of A2DM in 3 prior pregnancies. HgA1c 09/2024 was 5.4%. Patient denying diagnosis of pre gestational diabetes. HgA1c 12/2024 was 6.5%. Evaluated for DKA on admission, ruled out [] Attended [employer] [x] MFM Consult completed [] [facility] 36 wk visit [] Serial growth ultrasounds starting at 28 weeks Last ultrasound: 01/15 (28wks) surveillance: [] Weekly at 32 weeks [] Twice weekly at 36 weeks Current Regimen: Regimen on discharge: NPH 20/30, Lispro 10 TID with meals (12/23) 12/29/2024: NPH 20/30 --> 30*/40* am/pm Lispro 10 with meals --> 15* with meals +SS 1unit for every 10 > 140 pre-meal check 01/01/2025 MFM visit 01/05/2025: NPH 30/40 -->40*/50* am/pm Lispro 15-20 --> 25* with meals 01/08/25 NPH 44/44 needs to space out more (stacking) -> consider transitioning to Lantus at next visit Lispro 30 with meals, 4 with snacks 01/15/25 NPH 44/44, Lispro 30-35 with meals. Reminded patient to space NPH appropriately. Increased interval growth and mild poly on US today. 01/21/2025: NPH 44/44 --> 44/50* Lispro 45 with meals --> 52* with meals +15 with snacks 01/29/2025: NPH 54/54. Lispro 52 with meals + 15 with snacks (and pt gives herself SSI as well) Hyperglycemia in ([facility]) 12/23/2024 by Celena Solis, [employer] TECHNICIAN-TRAILER RENTAL CLERK 01/01/2025 by Ramirez Tucker MD Priority: Medium Subjective Patient reports she is doing well. Repots 12/15 posterior headache with small floaters but reports symptoms are responding to scheduled and PRN treatments. Feeling some pelvic cramping, otherwise comfortable with epidural. Objective Last Vitals: Temp Pulse Resp BP MAP Pulse Ox 36 C (96.8 F) 64 18 (!) 140/80 104 98 % Vitals Min/Max Last 24 Hours: Temp Min: 36 C (96.8 F) Max: 37.1 C (98.8 F) Pulse Min: 64 Max: 106 Resp Min: 18 Max: 20 BP Min: 108/51 Max: 147/78 MAP (mmHg) Min: 73 Max: 107 Intake/Output: Intake/Output Summary (Last 24 hours) at 02/11/2025 0757 Last data filed at 02/11/2025 0714 Gross per 24 hour Intake 2817.15 ml Output 5865 ml Net -3047.85 ml Physical Examination: GENERAL: Examination reveals a well developed, well nourished and obese, gravid female in no acute distress. She is alert and cooperative. LUNGS: clear to auscultation bilaterally HEART: regular rate and rhythm, S1, S2 normal, no murmur, click, rub or gallop ABDOMEN: soft, gravid, nontender, nondistended, no abnormal masses, no epigastric pain, obese FHR is , with Accelerations, and a tracing. [place] reading: SKIN: normal coloration and turgor, no rashes NEUROLOGICAL: DTRs normal and symmetrical PSYCHOLOGICAL: awake and alert; oriented to person, place, and time Lab Review: Lab Results Component Value Date WBC 18.5 (H) 02/09/2025 HGB 10.6 (L) 02/09/2025 HCT 34.8 (L) 02/09/2025 PLT 265 02/09/2025 0 Lab Value Date/Time GRPBSTREP Culture in progress 02/08/2025 3402 A/P: Patient is a 33 y.o. at 32w2d undergoing IOL for sPEC. 1) sPEC -Dx based on sustained severe rang Bps required tx with short-acting anti-hypertensives. Bps now well-controlled on nifedipine 30 mg XL Q day -HELLP labs neg X 1 -Continue MgS04 for 24 hours PP; UOP adequate and no signs of toxicity at this time 2) GDMA2 -Now NPO s/p epidural -Will give 37 units Lantus this AM per [facility] recs due to need for coverage overnight. S/p 2 units Lispro for blood sugar 154, continue to check Q 4 and cover with SS; will consider insulin gtt if continued need for coverage 3) Labor -CRB in place and s/p cyto X 2; continue with cervical ripening -GBS pos, continue PCN -s/p epidural as above Juan Jose Abdi MD Antepartum Progress Note Assessment/Plan Dayna Tinsley is a 33 y.o. at 32w0d by 13wk US admitted with sPEC sPEC - dx based on sustained severe range BPs requiring acute IV treatment and unrelenting headache - required treatment with labetalol 20 mg on admission - HELLP negx2, P:C 0.17 - Nifed 30 daily, Bps currently normotensive to low mild range - on Mg gtt due to NIELSEN - NIELSEN continues to be persistent, currently 01/12. Will continue treating - Per [facility], Patient will be for IOL tonight when BMZ complete GDMA2 - Home regimen: NPH 62/62, lispro 60 with meals, lispro 15 with snacks - s/p insulin gtt (Table 4) during BMZ, now transitioned to subQ with increased regimen - Current regimen: NPH 74/74, lispro 74u with meals, lispro 18u with snacks, last BG 157. - For q4H BG checks and SSI while with epidural - Diabetic diet for now. CLD once epidural infusing Plan - Patient desires CRB and cyto induction. After discussion, she is okay with standard continuous infusion of pitocin as opposed to pulses of low dose pitocin - Patient desires epidural placed with US guidance to previous failed epidurals, anesthesia made aware - Patient desires immediate skin to skin along with delivering her own baby hands over hands with the provider and delayed cord clamping after pulseless cord. Also desires to cut own cord. Discussed that all is okay as long as no signs or symptoms of distress requiring intervention - Patient desires to be able to go with baby to NICU to prior negative experiences missing care of her . Discussed that she will be on 24 hours of Mg , but patient desires to be taken by nursing to NICU while on Mg. Discussed this is dependent on staffing and BP control. Will continue to readdress History of Depression - previously on Doxepin - continue to monitor - plan SW consult Wellbeing - Cat I tracing - Last cephalic presentation on 02/09 PM. Rescanned tonight and oblique lie with head just to maternal right. Will drain bladder and rescan prior to starting induction. - GBS pending 02/08 - sp BMZ 02/08-02/09, 24h after second dose tonight at 2200 - Last growth on 02/05 2395g 99%, AC >99% - Polyhydramnios on 01/22 --> resolved on 01/29 US - s/p NICU consult Contraception - declines Seen & Discussed with Dr. Hilda Deleon MD, PGY-2 Subjective Still having a headache. No vision changes, CP, or SOB, or RUQ pain. Ready to start IOL. Would like epidural placed prior to starting IOL. Objective Allergies: Solu-medrol mix-o-vial, Versed [midazolam], and Reglan [metoclopramide hcl] Last Vitals: Temp Pulse Resp BP MAP Pulse Ox 37.1 C (98.8 F) 79 20 (!) 144/62 89 96 % Vitals Min/Max Last 24 Hours: Temp Min: 36.3 C (97.3 F) Max: 37.1 C (98.8 F) Pulse Min: 73 Max: 106 Resp Min: 16 Max: 20 BP Min: 108/51 Max: 147/78 MAP (mmHg) Min: 73 Max: 107 Intake/Output: Intake/Output Summary (Last 24 hours) at 02/10/2025 2330 Last data filed at 02/10/2025 2238 Gross per 24 hour Intake 2341.07 ml Output 5650 ml Net -3308.93 ml Physical Exam: General: Lying in bed in NAD Neuro: Awake, alert, conversational CV: Regular rate Respiratory: Even and unlabored on RA Extremities: Symmetric, Full ROM Psych: appropriate mood and affect Cervical Exam Dilation: Fingertip Effacement (%): 50 Station: -3 Presentation: Vertex Method: Manual OB Examiner: MD Pacnho Assessment Movement: Present Mode: External US Baseline Heart Rate (bpm): 145 bpm Baseline Classification: Normal Variability: Moderate (Between 6 and 25 BPM) Pattern: Accelerations Pattern Observations: Pancho SEAMAN at bedside performing ultrasound Multiple Births: No Decelerations: No Contraction Frequency: none Cosigned by Ascencion Stevens MD at 02/11/2025 3:44 AM EDT Associated attestation - Ascencion Stevens MD - 02/11/2025 3:44 AM EDT I saw and evaluated the patient. I personally obtained the mixon and critical portions of the history and physical exam or was physically present for mixon and critical portions performed by the resident/fellow. I reviewed the resident/fellow's documentation and discussed the patient with the resident/fellow. I agree with the resident/fellow's medical decision making as documented in the note. Reviewed plan in note, given pt only 32 weeks, will not be able to do skin to skin. Will readdress with pt next time we are in room. Ascencion Stevens MD Antepartum Progress Note Assessment/Plan Dayna Tinsley is a 33 y.o. at 32w0d by 13wk US admitted with sPEC sPEC - dx based on sustained severe range BPs requiring acute IV treatment and unrelenting headache - required treatment with labetalol 20 mg on admission - HELLP negx2, P:C 0.17 - Nifed 30 daily, Bps currently normotensive to low mild range - on Mg gtt due to NIELSEN - NIELSEN continues to be persistent, currently 01/12. Will continue treating until tonight when BMZ complete, per [facility] GDMA2 - Home regimen: NPH 62/62, lispro 60 with meals, lispro 15 with snacks - s/p insulin gtt (Table 4) during BMZ, now transitioned to subQ with increased regimen - Current regimen: NPH 74/74, lispro 74u with meals, lispro 18u with snacks, last BG 157 - Diabetic diet Plan - Patient desires CRB and cyto induction with pulses of low dose pitocin to avoid distress. Discussed with patient half life of pitocin, but patient continues to decline long doses of pitocin - Patient desires IV pain medication along with epidural placed with US guidance to previous failed epidurals, anesthesia made aware - Patient desires immediate skin to skin along with delivering her own baby hands over hands with the provider and delayed cord clamping after pulseless cord. Also desires to cut own cord. Discussed that all is okay as long as no signs or symptoms of distress requiring intervention - Patient desires to be able to go with baby to NICU to prior negative experiences missing care of her . Discussed that she will be on 24 hours of Mg , but patient desires to be taken by nursing to NICU while on Mg. Discussed this is dependent on staffing and BP control. Will continue to readdress History of Depression - previously on Doxepin - continue to monitor - plan SW consult Wellbeing - Cat I tracing - Last cephalic presentation on 02/09 PM - GBS pending 02/08 - sp BMZ 02/08-02/09, 24h after second dose tonight at 2200 - Last growth on 02/05 2395g 99%, AC >99% - Polyhydramnios on 01/22 --> resolved on 01/29 US - M and NICU consulted, NICU to see today due to patient declining Vit K and erythromycin cream as well as NICU stay Contraception - declines Amine Sahmodarien, PGY4 OBGYN Seen and discussed with Dr. Wilson Subjective Patient doing well with no vision changes, no RUQ pain. She has no CP, no SOB. She has no vb, no lof, no ctx, and feels good FM. She still states that she has a NIELSEN 3/10 with pulsating in her neck. Objective Allergies: Solu-medrol mix-o-vial, Versed [midazolam], and Reglan [metoclopramide hcl] Last Vitals: Temp Pulse Resp BP MAP Pulse Ox 36.7 C (98.1 F) 87 18 (!) 143/79 104 99 % Vitals Min/Max Last 24 Hours: Temp Min: 36 C (96.8 F) Max: 36.9 C (98.4 F) Pulse Min: 78 Max: 106 Resp Min: 16 Max: 19 BP Min: 114/54 Max: 143/79 MAP (mmHg) Min: 76 Max: 106 Intake/Output: Intake/Output Summary (Last 24 hours) at 02/10/2025 0816 Last data filed at 02/10/2025 0720 Gross per 24 hour Intake 1324.87 ml Output 4600 ml Net -3275.13 ml Physical Exam: Cervical Exam Dilation: Fingertip Effacement (%): 50 Station: -3 Presentation: Transverse Method: Manual OB Examiner: MD Pancho Assessment Movement: Present Mode: External US Baseline Heart Rate (bpm): (VELIA) Baseline Classification: Normal Variability: Moderate (Between 6 and 25 BPM) Pattern: Accelerations Pattern Observations: unable to determine periodic changes Multiple Births: No Decelerations: No Contraction Frequency: none Cardiac: RRR Pulm: CTAB Extremities: +1 reflexes bl Cosigned by Danae Wilson MD at 02/10/2025 8:28 AM EDT ANTEPARTUM PROGRESS NOTE 02/10/2025, 7:43 AM SUBJECTIVE: Unrelenting headache overnight unresolved with Tylenol, Flexeril, IV benadryl, and caffeine. States it is currently a 4/10. Reports continued face and abd tingling. Denies painful contractions, VB, LOF. Reports normal movement. Denies vision changes, CP, SOB, RUQ or epigastric pain. OBJECTIVE: BP 134/67 Pulse 78 Temp 36.5 C (97.7 F) (Oral) Resp 16 Ht 1.638 m (5' 4.5) Wt 141 kg (310 lb 13.6 oz) SpO2 99% BMI 52.53 kg/m Temp Min: 36 C (96.8 F) Max: 36.9 C (98.4 F) Pulse Min: 78 Max: 106 BP Min: 114/54 Max: 143/73 General: AAOx3, No acute distress Cardiovascular: Warm and well perfused Respiratory: Normal respiratory effort Abdominal: Soft, gravid, non-tender, no rebound or guarding, no palpable contractions Extremities: Warm, well perfused, 2+ edema, no calf tenderness NST: Baseline 120/ mod variability + accels/ - decels Yuba: quiet Labs: Lab Results Component Value Date WBC 18.5 (H) 02/09/2025 HGB 10.6 (L) 02/09/2025 HCT 34.8 (L) 02/09/2025 PLT 265 02/09/2025 Lab Results Component Value Date GLUCOSE 113 (H) 02/09/2025 NA 135 (L) 02/09/2025 K 4.1 02/09/2025 CL 106 02/09/2025 CO2 17 (L) 02/09/2025 ANIONGAP 16 02/09/2025 BUN 9 02/09/2025 CREATININE 0.54 02/09/2025 EGFR >90 02/09/2025 CALCIUM 8.0 (L) 02/09/2025 ALBUMIN 3.1 (L) 02/09/2025 PROT 6.0 (L) 02/09/2025 ALKPHOS 80 02/09/2025 ALT 6 (L) 02/09/2025 AST 18 02/09/2025 BILITOT 0.6 02/09/2025 ASSESSMENT AND PLAN: 33 y.o. at 32w1d by 13wk US with sPEC. sPEC - dx based on sustained severe range BPs requiring acute IV treatment and unrelenting headache - required treatment with labetalol 20 mg on admission - HELLP negx2, P:C 0.17 - Nifed 30 daily, Bps currently normotensive to low mild range - Headache had previously resolved; now back and unresolved with medications. MRI/A/V neg. - Discussed recommendation for delivery at this time given unrelenting headache. Patient amenable. Would like to speak to NICU. - Repeat labs wnl. Cont Mg. - BMZ complete at 2200 tonight (02/10), for IOL tonight GDMA2 - current regimen: NPH 62/62, lispro 60 with meals, lispro 15 with snacks - Started on insulin gtt in s/o BMZ. Transition back to long acting insulin w/ new regimen: NPH 74/74, lispro 74 w meals, 18 w snacks. - BHB, VBG wnl, Gap 9, low concern for DKA - Diabetic diet History of Depression - previously on Doxepin - continue to monitor - declined SW consult Wellbeing - Cat I tracing - Currently cephalic presentation, UNSTABLE LIE, repeat US prior to IOL; Discussed recommendation for CS if not vertex at time of delivery. Patient adamant that she does not want a unless she were dying. Will continue to discuss. - GBS pending 02/08 - s/p BMZ 02/08-02/09 - Last growth on 02/05: EFW 2395g 99%, AC >99% - Polyhydramnios on 01/22 --> resolved on 01/29 US - NICU consult pending Pt seen and discussed with [facility] Attending, Dr. [place]. Amanda Rivas MD [facility] Pager [phone] Assessment & Plan Severe preeclampsia, third trimester ([facility]) Cosigned by Earl Colorado MD at 02/11/2025 10:53 AM EDT Associated attestation - Earl Colorado MD - 02/11/2025 10:53 AM EDT I saw and evaluated the patient. I personally obtained the mixon and critical portions of the history and physical exam or was physically present for mixon and critical portions performed by the resident/fellow. I reviewed the resident/fellow's documentation and discussed the patient with the resident/fellow. I agree with the resident/fellow's medical decision making as documented in the note with the exception/addition of the following: Patient endorses severe headache inconsistent with headaches outside of and similar to severe headaches which occurred in the context of pre-eclampsia in the past. In combination with obstetric history and severe BP elevations would then meet criteria for pre-eclampsia severe by headache and BP. Reviewed plan and recommendations, including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 02/10/2025 4:35 PM EDT Associated attestation - Evens Alfaro MD - 02/10/2025 4:35 PM EDT I saw and evaluated the patient. I personally obtained the mixon and critical portions of the history and physical exam or was physically present for mixon and critical portions performed by the resident/fellow. I reviewed the resident/fellow's documentation and discussed the patient with the resident/fellow. I agree with the resident/fellow's medical decision making as documented in the note. Associated Order(s): IP CONSULT TO MATERNAL- MEDICINE MFM Consult Reason for Consult: sPEC, A2DM HPI: From admission H&P: Dayna Tinsley is a 33 y.o. year old at 31w6d who presents to triage with headache, BP 179/95 at home, contractions, and uncontrollable blood sugars. Reports 5/10 frontal headache. Pt woke up with a NIELSEN and took tylenol early this am without relief. Around noon, it got worse so she took a magnesium tablet but no relief. Reports intermittent floaters but no scotoma, RUQ pain, chest pain, or unusual shortness of breath. Pt has some shortness of breath with activity but not at rest. Reports Bps normally 120s/70s-80s but elevated today. Having 4-5 contractions per hr today. Denies vaginal bleeding, loss of fluid, vaginal symptoms, and reports good FM prior to the start of the contractions. Now it is slightly decreased. Reports diarrhea for the past three days with vomiting episodes x 2 today. Was able to eat at 1530 and has not vomited since. Reports some LUQ pain. Denies fever, chills. Reports blood sugars per CGM ranging from 50-300 today. Reports she adjusted insulin dosing based on blood sugars around 240 earlier. Insulin today includes: NPH 60 units at 0536 and another 10 units at 1419. She has also had Lispro 80 units this am and another 40 units at 1419. She adjusted her dosing to try to avoid a trip to triage. notables: - A2DM: NPH 62/62, lispro 60 w meals, 15 w snacks. 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 Underwent EEG monitoring that was unremarkable for seizure activity - Hx of cholecystectomy, LEEP, bowel ressection - Hx of bowel resection in s/o Crohn's disease in childhood, reporting remission x10 years, denies rectal/anal disease - H/o retained placenta c/b endometritis 2 weeks , managed by D&C - gHTN, baseline HELLP labs wnl, P:C 0.27. Per chart review from P1 , had a h/o cHTN. Patient reports completely normotensive blood pressures after 100 lb weight loss Problems (from 12/23/24 to present) Problem Noted Diagnosed Resolved Severe preeclampsia, third trimester ([facility]) 02/08/2025 by Dhara Bautista APRN-TRAILER RENTAL CLERK No Priority: Medium Polyhydramnios in third trimester ([facility]) 01/22/2025 by Veena Duvall MD No Priority: Medium Overview Addendum 01/29/2025 1:53 PM by Veena Duvall MD SERENA 27 on 01/22 -> resolved on 01/29 US History of loop electrosurgical excision procedure (LEEP) of cervix affecting in second trimester 01/08/2025 by Paulette Romero MD No Priority: Medium headache in third trimester ([facility]) 01/08/2025 by Paulette Romero MD No Priority: Medium Overview Signed 01/15/2025 12:27 PM by Veena Duvall MD Headches starting to worsen around 25 wks til present. Assoc w/ floaters over last few days. No hx of migraines. S/p triage visit 01/14, improved with meds and normotensive so discharged home. 31 weeks gestation of ([facility]) 01/01/2025 by Ramirez Tucker MD No Priority: Medium Overview Addendum 01/29/2025 1:52 PM by Veena Duvall MD Desired provider in labor: [] CNM [x] Physician [] Either Acceptable [] Blood Products: [] Yes, accepts [] No, needs counseling [x] Initial BMI: Could not be calculated [x] Labs: media tab [x] Cervical Cancer Screenin NILM/HPV other+ [x] Rh status: O pos [] Screen for IPV and Substance Use Risk: [] Genetic Screening (cfDNA): [x] First Trimester Anatomy Screen (11-13.6 wks): wnl 09/30 out of window [x] dated by: 13 wk US [x] Anatomy US: (19-20 wks), 01/01 [] Federal Sterilization consent signed (if indicated): [x] 1hr GCT at 24-28wks: GDMA2 started on insulin in triage [x] Rhogam (if indicated): NA [x] Surveillance (if indicated): weekly testing @32 wks, serial growths (27-32 wks, may be given up to 36 wks if initial window missed): declines all vaccines 01/08 (32-36 wks) ( to end of Nov): missed window [x] Feeding Intentions: [x] control method: declines [] GBS at 34-35 wks: [x] 39 weeks discussion of IOL vs. Expectant management: anticipate IOL at 37wga at the latest for gHTN [x] Mode of delivery ( anticipated ): Crohn disease (Multi) 01/01/2025 by Ramirez Tucker MD No Priority: Medium Overview Signed 01/01/2025 3:14 PM by Ramirez Tucker MD Patient reporting h/o Crohn's disease with bowel resection in childhood. Reporting remission x 10 year. Per documentation from P1 at [facility] colonoscopy: 05/2015 - No endoscopic findings to suggest diagnosis of Crohn's disease. - The examined portion of the ileum was normal. Biopsied. - The entire examined colon is normal on direct and retroflexion views. Biopsied. 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 Underwent EEG monitoring that was unremarkable for seizure activity Depression affecting in third trimester, antepartum ([facility]) 01/01/2025 by Ramirez Tucker MD No Priority: Medium Overview Addendum 01/22/2025 9:53 AM by Veena Duvall MD With associated anxiety. On Doxepin daily and prn Valium. follows with Dr. Rasmussen at [facility] Gestational hypertension, third trimester ([facility]) 12/25/2024 by Paulette Torrez MD No Priority: Medium Overview Addendum 02/04/2025 11:51 PM by Ramirez Tucker MD Reports h/o cHTN prior to P1 , resolved after Patient reporting h/o preeclampsia x3 and HELLP vs eclampsia in most recent , reporting concern for seizures. Received care for previous pregnancies in [place] and reporting that she is declines release of records. Denies h/o HTN outside of , although documented elevated blood pressures outside of at ED visits in 2022. During admission 12/23-12/25, discussed with patient that there is a possibility of super-imposed chronic hypertension that is contributing to her current presentation. She did have two unsustained severe range blood pressures while admitted, both during period of stress. Given high likelihood of patient with history of chronic hypertension, will not diagnose super-imposed pre-eclampsia during this admission. Also discussed with patient that given her reported significant history of SPEC, HELLP vs eclampsia, will treat her as being diagnosed with gestational hypertension. She will require twice weekly testing until delivery, delivery at 37.0 wga if not indicated sooner and weekly PEC labs. If the patient has two sustained severe range blood pressures, she is likely meeting criteria for SPEC vs siPEC w/SF. At the time of discharge, it was deemed that she should not be initiated on an oral anti-hypertensive. [x] [id number] [x] BP cuff ordered and education provided [x] Baseline preE labs: wnl (12/2024), neg 3/6, P:C 0.27 [x] Urine P:C: 0.27 (12/2024) [] Q3 week growth US: EFW 96%, AC 93% (01/15) [] Twice weekly testing w/ alternating BPPs and NSTs [x] Delivery timing and plan: 37.0 wga Insulin controlled gestational diabetes mellitus (GDM) in third trimester ([facility]) 12/25/2024 by Paulette Torrez MD No Priority: Medium Overview Addendum 01/29/2025 1:48 PM by Veena Duvall MD Patient presented to triage on 12/23/23 with blood glucose of 305. Reported a history of A2DM in 3 prior pregnancies. HgA1c 09/2024 was 5.4%. Patient denying diagnosis of pre gestational diabetes. HgA1c 12/2024 was 6.5%. Evaluated for DKA on admission, ruled out [] Attended [employer] [x] MFM Consult completed [] MFM 36 wk visit [] Serial growth ultrasounds starting at 28 weeks Last ultrasound: 01/15 (28wks) surveillance: [] Weekly at 32 weeks [] Twice weekly at 36 weeks Current Regimen: Regimen on discharge: NPH 20/30, Lispro 10 TID with meals (12/23) 12/29/2024: NPH 20/30 --> 30*/40* am/pm Lispro 10 with meals --> 15* with meals +SS 1unit for every 10 > 140 pre-meal check 01/01/2025 MFM visit 01/05/2025: NPH 30/40 -->40*/50* am/pm Lispro 15-20 --> 25* with meals 01/08/25 NPH 44/44 needs to space out more (stacking) -> consider transitioning to Lantus at next visit Lispro 30 with meals, 4 with snacks 01/15/25 NPH 44/44, Lispro 30-35 with meals. Reminded patient to space NPH appropriately. Increased interval growth and mild poly on US today. 01/21/2025: NPH 44/44 --> 44/50* Lispro 45 with meals --> 52* with meals +15 with snacks 01/29/2025: NPH 54/54. Lispro 52 with meals + 15 with snacks (and pt gives herself SSI as well) Hyperglycemia in ([facility]) 12/23/2024 by Celena Solis DARKROOM TECHNICIAN-TRAILER RENTAL CLERK 01/01/2025 by Ramirez Tucker MD Obstetrical History OB History 14 Para 5 Term 0 5 AB 8 Living 5 SAB 8 IAB Ectopic Multiple Live Births 5 Past Medical History Past Medical History: Diagnosis Date Anxiety Depression psychosis (Multi) Past Surgical History Past Surgical History: Procedure Laterality Date BOWEL RESECTION CERVICAL BIOPSY W/ LOOP ELECTRODE EXCISION CHOLECYSTECTOMY DILATION AND CURETTAGE OF UTERUS s/p RPOC Social History Social History Socioeconomic History Marital status: Spouse name: Not on file Number of children: Not on file Years of education: Not on file Highest education level: Not on file Occupational History Not on file Tobacco Use Smoking status: Former Types: Cigarettes Smokeless tobacco: Not on file Vaping Use Vaping status: Never Used Substance and Sexual Activity Alcohol use: Never Drug use: Never Sexual activity: Not on file Other Topics Concern Not on file Social History Narrative Not on file Social Drivers of Health Financial Resource Strain: Low Risk (02/09/2025) Overall Financial Resource Strain (CARDIA) Difficulty of Paying Living Expenses: Not hard at all Recent Concern: Financial Resource Strain - Medium Risk (12/23/2024) Overall Financial Resource Strain (CARDIA) Difficulty of Paying Living Expenses: Somewhat hard Food Insecurity: No Food Insecurity (02/09/2025) Hunger Vital Sign Worried About Running Out of Food in the Last Year: Never true Ran Out of Food in the Last Year: Never true Transportation Needs: No Transportation Needs (02/09/2025) PRAPARE - Transportation Lack of Transportation (Medical): No Lack of Transportation (Non-Medical): No Physical Activity: Not on file Stress: Not on file Social Connections: Not on file Intimate Partner Violence: Not At Risk (02/08/2025) Humiliation, Afraid, Rape, and Kick questionnaire Fear of Current or Ex-Partner: No Emotionally Abused: No Physically Abused: No Sexually Abused: No Allergies Allergies Allergen Reactions Solu-Medrol Mix-O-Vial Anaphylaxis Versed [Midazolam] Anxiety Reglan [Metoclopramide Hcl] Other Extreme restlessness Medications Medications Prior to Admission Medication Sig Dispense Refill Last Dose/Taking alcohol swabs pads, medicated Use 1, up to 5 times a day 200 each 3 02/08/2025 blood sugar diagnostic (Blood Glucose Test) strip Use 1 strip 4-6 times a day during 150 each 3 02/08/2025 blood-glucose meter misc Use for testing blood sugar fasting and 1 hour after each meal. 4-6 times per day during 1 each 0 02/08/2025 blood-glucose sensor (Dexcom G7 Sensor) device Use 1 sensor and change every 10 days 3 each 0 02/08/2025 diazePAM (Valium) 5 mg tablet Take 1 tablet (5 mg) by mouth every 8 hours if needed for anxiety. Past Month famotidine (Pepcid) 10 mg tablet Take 1 tablet (10 mg) by mouth 2 times a day. 60 tablet 2 02/08/2025 insulin lispro (HumaLOG KwikPen Insulin) 100 unit/mL pen Inject 25 units with each meal. May increase to 150 units total per day during as needed. 45 mL 3 02/08/2025 lancets 33 gauge misc Use 1 lancet 4-6 times per day during 200 each 3 02/08/2025 magnesium oxide (Mag-Ox) 400 mg (241.3 mg magnesium) tablet Take 1 tablet (400 mg) by mouth once daily. Take a bedtime 30 tablet 11 02/08/2025 magnesium oxide (Mag-Ox) 400 mg (241.3 mg magnesium) tablet Take 0.5 tablets (200 mg) by mouth 2 times a day as needed (Headache). 30 tablet 0 02/08/2025 modafinil (Provigil) 200 mg tablet Take 0.5 tablets (100 mg) by mouth once daily. Past Month pantoprazole (Protonix) 40 mg EC tablet Take 1 tablet (40 mg) by mouth once daily in the morning. Take before meals. Do not crush, chew, or split. 30 tablet 11 Past Week pen needle, diabetic (BD Shiela 2nd Gen Pen Needle) 32 gauge x /32 needle Use 1 per injection, up to 8 times a day 200 each 3 02/08/2025 promethazine (Phenergan) 25 mg tablet Take 1 tablet (25 mg) by mouth every 6 hours if needed for nausea or vomiting. 180 tablet 1 02/08/2025 scopolamine (Transderm-Scop) 1 mg over 3 days patch [address] 1 patch over 72 hours on the skin every 3rd day. 10 patch 2 Past Week doxepin (SINEquan) 75 mg capsule Take 1 capsule (75 mg) by mouth once daily at bedtime. 02/07/2025 insulin NPH, Isophane, (NovoLIN N FlexPen) 100 unit/mL (3 mL) pen Inject 40 units in the morning and 50 units at night. May increase to 150 units total per day during as needed. 45 mL 3 OBJECTIVE: BP (!) 138/93 Pulse (!) 114 Temp 36 C (96.8 F) (Temporal) Resp 18 Ht 1.638 m (5' 4.5) Wt 141 kg (310 lb 3 oz) SpO2 98% BMI 52.42 kg/m Temp Min: 36 C (96.8 F) Max: 37.4 C (99.3 F) Pulse Min: 82 Max: 117 BP Min: 114/66 Max: 171/91 Physical exam: General: AAOx3, No acute distress Cardiovascular: Warm and well perfused Respiratory: Normal respiratory effort Abdominal: Soft, gravid, non-tender, no rebound or guarding, no palpable contractions Extremities: Warm, well perfused NST: Baseline 130, accelerations +, - decelerations, mod variability [place]: quiet Labs: Lab Results Component Value Date WBC 19.1 (H) 02/09/2025 HGB 11.2 (L) 02/09/2025 HCT 35.4 (L) 02/09/2025 PLT 266 02/09/2025 Lab Results Component Value Date GLUCOSE 136 (H) 02/09/2025 NA 136 02/09/2025 K 3.9 02/09/2025 CL 105 02/09/2025 CO2 22 02/09/2025 ANIONGAP 13 02/09/2025 BUN 8 02/09/2025 CREATININE 0.52 02/09/2025 EGFR >90 02/09/2025 CALCIUM 8.5 (L) 02/09/2025 ALBUMIN 3.3 (L) 02/09/2025 PROT 6.2 (L) 02/09/2025 ALKPHOS 87 02/09/2025 ALT 7 02/09/2025 AST 10 02/09/2025 BILITOT 0.4 02/09/2025 ASSESSMENT AND PLAN: 33 y.o. at 32w0d by 13wk US with new sPEC. sPEC - dx based on sustained severe range BPs requiring acute IV treatment and unrelenting headache - required treatment with labetalol 20 mg on admission - HELLP negx2, P:C 0.17 - Nifed 30 daily, Bps currently normotensive to low mild range - s/p magnesium overnight until headache resolved - Discussed recommendation for delivery at 34wga as long as maternal and status are stable. Patient desiring delivery at 35wga. Will continue to discuss. GDMA2 - current regimen: NPH 62/62, lispro 60 with meals, lispro 15 with snacks - Started on insulin gtt in s/o BMZ. Transition back to long acting insulin w/ new regimen: NPH 74/74, lispro 74 w meals, 18 w snacks. - BHB, VBG wnl, Gap 9, low concern for DKA - Diabetic diet History of Depression - previously on Doxepin - continue to monitor - declined SW consult Wellbeing - Cat I tracing - Transverse presentation; Discussed recommendation for CS if not vertex at time of delivery. Patient adamant that she does not want a unless she were dying. Will continue to discuss. - GBS pending 02/08 - BMZ #1, for second dose in 24H - Last growth on 02/05: EFW 2395g 99%, AC >99% - Polyhydramnios on 01/22 --> resolved on 01/29 US - NICU consult pending Dispo: Continue inpatient management with plan for delivery at 34wga or sooner pending maternal/ status Pt seen and discussed with [facility] Attending, Dr. [place]. Amanda Rivas MD [facility] Pager [phone] Assessment & Plan Severe preeclampsia, third trimester ([facility]) Cosigned by Earl Colorado MD at 02/10/2025 11:03 AM EDT Associated attestation - Earl Colorado MD - 02/10/2025 11:03 AM EDT I saw and evaluated the patient. I personally obtained the imxon and critical portions of the history and physical exam or was physically present for mixon and critical portions performed by the resident/fellow. I reviewed the resident/fellow's documentation and discussed the patient with the resident/fellow. I agree with the resident/fellow's medical decision making as documented in the note. documented in this encounter [facility] Work Phone: 02-13-2025 Obstetrics Note This note was copied from a baby's chart. Non Destructive Testing Engineer Note Consultation Reason for Consult: Initial assessment, NICU baby Marble Setter Name: Isabel Contreras RN IBCLC Maternal Information Has mother breastfed before?: Yes How long did the mother previously breastfeed?: She could not say Previous Maternal Challenges: Infant separation Infant to breast within first 2 hours of ?: No Delayed Due to: Infant status Exclusive Pump and Bottle Feed: No WIC Program: Yes Maternal Assessment Breast Assessment: Medium, Large (Right breast is smaller by about 1/3 to 1/2 her left brest.) Nipple Assessment: Intact, Erect with stimulation, Large diameter, Other (Comment) (Nipples measure 22 mm bilat.) Areola Assessment: Normal Infant Assessment Infant Behavior: Other (Comment) (On NCPAP) Infant Assessment: Other (Comment) (32 3/7 week infant) Feeding Assessment Nutrition Source: Donor human milk, Breastmilk Feeding Method: Tube feeding LATCH TOOL Breast Pump Pump: Hospital grade electric pump Frequency: 8-10 times per day Breast Shield Size and Type: 24 mm, Other (comment) (Mom was given a pair of 27 mm flanges to trial as she has a very thick nipple on her left side.) Units of Volume: Drops Other OB Tools Patient Follow-up Other OB Documentation Maternal Risk Factors: delivery <37 weeks, Preeclampsia Infant Risk Factors: Prematurity <37 weeks Recommendations/Summary I spoke with mom at pt's bedside to explained availability of the RB&C LC services. Instructed on listed patient education: STPEHEN, Benefits of mother's own milk for the infant, breast massage and hand expression,CDC pump cleaning & sanitizing guidelines. Mom was measured for flange fit. Her measurement is 22 mm bilaterally. She was given a pair of 27 mm flanges as her nipples are very thick and somewhat elastic. Mom encouraged to massage breasts before and during pumping. Instructed in hand expression/massage techniques.She was encouraged to pump every 3 hours to help establish her milk supply. Mom reports that she has a pump for home use that she got through her insurance. She reports that she wants to get an additional pump through her secondary insurance. I will place an order to [employer] to see if they will issue her an additional pump. I did tell her that it most likely will not go through. Mom was invited to contact services as needed. [facility] 02-13-2025 major gifts manager Note Patient meets criteria for home monitoring of blood pressure post discharge. Reason: current preeclampsia with severe features. Met with patient to assess for availability of home BP monitor. Patient stated she owns home BP monitor. Patient educated on importance of continuing to monitor BP at home, recording BP on home monitoring log and s/sx of when to call her provider. Pt verbalized understanding the above information. [facility] 02-13-2025 Plan of care note Problem: Hypertensive Disorder of (HDP) Goal: Minimal s/sx of HDP and BP<160/110 Outcome: Progressing Goal: Adequate urine output (0.5 ml/kg/hr) Outcome: Progressing Problem: Pain - Adult Goal: Verbalizes/displays adequate comfort level or baseline comfort level Outcome: Progressing Problem: Safety - Adult Goal: Free from fall injury Outcome: Progressing Problem: Chronic Conditions and Co-morbidities Goal: Patient's chronic conditions and co-morbidity symptoms are monitored and maintained or improved Outcome: Progressing Problem: Goal: Experiences normal course Outcome: Progressing Goal: Appropriate maternal - bonding Outcome: Progressing Goal: Establish and maintain infant feeding pattern for adequate nutrition Outcome: Progressing Goal: Incisions, wounds, or drain sites healing without S/S of infection Outcome: Progressing Goal: No s/sx infection Outcome: Progressing Goal: No s/sx of hemorrhage Outcome: Progressing Goal: Minimal s/sx of HDP and BP<160/110 Outcome: Progressing The patient's goals for the shift include Rest The clinical goals for the shift include Meet milestones Over the shift, the patient did make progress toward the following goals. Patient visiting in NICU and agreeable to plan of care. [facility] 02-12-2025 major gifts manager Note Images from the original note were not included. Clinical Update S: Pt reports that she is feeling well, denies NIELSEN, SOB, RUQ pain, chest pain, or other concerns. O: BP (!) 143/85 Pulse 76 Temp 36.7 C (98.1 F) (Temporal) Resp 18 Ht 1.638 m (5' 4.5) Wt 141 kg (310 lb 13.6 oz) SpO2 98% Yes BMI 52.53 kg/m Blood Pressures 02/12/2025 1343 02/12/2025 1358 02/12/2025 1427 02/12/2025 1507 02/12/2025 1631 BP: 154/80 148/75 139/78 150/77 143/85 General: no acute distress HEENT: normocephalic, atraumatic Heart: warm and well perfused Lungs: breathing comfortably on room air Extremities: moving all extremities Neuro: awake and conversant, reflexes per leadership coach: normal mood Skin: no rashes or lesions visualized A/P: BP trend reviewed with patient and recommending change of regimen to Nifed 60 mg daily Will give additoinal dose of Nifed 30 mg now Remains Asx Continue Mg infusion All questions answered to pt's satisfaction Discussed with Dr. William He MD, MPH Obstetrics & Gynecology, PGY-1 [facility] Work Phone: 02-12-2025 Plan of care note The patient's goals for the shift include with skin to skin if able The clinical goals for the shift include FHR remain reassuring during IOL [facility] 02-12-2025 Labor and delivery summary note Vaginal Delivery Note Patient Name: Dayna Tinsley : 1991 Age: 33 y.o. /Para: Gestational Age: 32w3d Date of Delivery: 02/12/2025 Procedure: Normal Spontaneous Vaginal Delivery Delivery Provider: Jose Guadalupe Gupta MD Resident/Fellow/Other Entrepreneur: Hanane Malagon MD / Luz Thomas MD Description of Procedure: Delivery of viable infant under epidural anesthesia. Delayed clamping was performed. The was placed skin to skin.. Cord gases were sent. Cord blood was collected. Pt requested no traction on her umbilical cord for placental delivery. The placenta spontaneously delivered intact and fundus was firm No lacerations identified. Findings: Amniotic fluid Clear, Female in Vertex Occiput Anterior presentation, APGARS 6 , 8 . Weight 2.56 kg. Complications: None Quantitative Blood Loss: Delivery Blood Loss Intrapartum & : 02/08/251805 - 02/12/25 1204 Delivery Admission: 02/08/251805 - 02/12/25 1204 Intrapartum & Delivery Admission None Blood products: Uterotonics/Hemostatic Agent: IV Pitocin 30 units Specimen: Placenta Delivered: Appearance: Intact Removal: Spontaneous Disposition: Sponge/Instrument/Needle Counts: The sponge, lap and needle counts were correct. Patient Disposition: Patient recovering on labor and delivery in stable condition. Additional Procedures: None Dinh Tinsley [[id number]] Labor Events Rupture date/time: 02/11/2025 1903 Rupture type: Artificial Fluid color: Clear Fluid odor: None Labor type: Induced Onset of Labor Labor allowed to proceed with plans for an attempted vaginal ?: Yes Induction: Taveras/EASI, Misoprostol First cervical ripening date/time: 02/11/2025126 Induction date/time: 02/11/2025 012 Induction indications: Hypertensive Disorder of Complications: None Labor Event Times Labor onset date/time: 02/08/2025 1806 Dilation complete date/time: 02/11/2025 1118 Start pushing date/time: 02/12/2025 1123 Placenta Placenta delivery date/time: Placenta removal: Spontaneous Placenta appearance: Intact Cord Vessels: 3 vessels Complications: None Delayed cord clamping?: Yes Cord clamped date/time: 02/12/2025 11:30:00 Cord blood disposition: Lab Gases sent?: No Cord comments: sent to nicu Stem cell collection (by provider): No Lacerations Episiotomy: None Perineal laceration: None Anesthesia Method: Epidural Operative Delivery Forceps attempted?: No Vacuum extractor attempted?: No Shoulder Dystocia Shoulder dystocia present?: No [place] Delivery Time head delivered: 02/12/2025 11:30:00 date/time: 02/12/2025 11:30:00 Delivery type: Complications: None Resuscitation Method: Tactile stimulation, Continuous positive airway pressure (CPAP), Suctioning Apgars Living status: Living Component Scores: 1 min.: 5 min.: 10 min.: 15 min.: 20 min.: Skin color: 0 1 Heart rate: 2 2 Reflex irritability: 1 2 Muscle tone: 1 1 Respiratory effort: 2 2 Total: 6 8 Apgars assigned by: Kevin RODRÍGUEZ DO Delivery Providers Delivering clinician: Jose Guadalupe Gupta MD Provider Role Erin Schmidt RN Delivery Nurse Josie Cheng RN Nursery Nurse Hanane Malagon MD Resident Amine MD William Resident Cosigned by Jose Guadalupe Gupta MD at 02/12/2025 1:05 PM EDT Associated attestation - Jose Guadalupe Gupta MD - 02/12/2025 1:05 PM EDT I was present for the entirety of the procedure(s). Jose Guadalupe Gupta MD [facility] Work Phone: 02-12-2025 major gifts manager Note LABOR PROGRESS NOTE SUBJECTIVE Patient doing well with epidural and pitocin infusing. Feeling intermittent contractions. OBJECTIVE Visit Vitals BP 121/62 Pulse 75 Temp (!) 35.9 C (96.6 F) Resp 18 Cervical Exam Dilation: 5 Effacement (%): 80 Station: -1 Presentation: Vertex (confirmed by BSUS by Deleon) Method: Manual OB Examiner: Brandee Thomas Assessment Movement: Present Mode: scalp electrode Baseline Heart Rate (bpm): 140 bpm Baseline Classification: Normal Variability: Minimal (Less than 5 BPM) Pattern: (okay to continue Pitocin at this time per Angel Thomas) Pattern Observations: RN attempting to maintain CEFM at bedside throughout half hour. Multiple Births: No Decelerations: No Contraction Frequency: 1.5-5 A&P IOL Labor course: 1930 0.5/50/-3 0130 CRB/Cyto#1 0500 cyto2 0830 350/-3 1230 4/70/-3, pit turned off at request 1445 pit restarted 1615 70/-3 1900 unchanged, AROM, IUPC 2330 /-2 0200 unchanged, FSE 0445 pit paused for lates 0530 unchanged 0600 pit on 0830 80/-2, IUPC replaced 1045 80/-1 - Continue to monitor for cervical change - continue pitocin sPEC - dx based on sustained severe range BPs requiring acute IV treatment and unrelenting headache - HELLP negx2, P:C 0.17 - Nifed 30 daily, Bps currently normotensive to low mild range - on Mg gtt until 24 hours - s/p negative head imaging - NIELSEN currently minimal, will continue to treat GDMA2 - Received NPH 74 last night and NPH 37 this AM. - D5 currently running due to episodes of hypoglycemia - For q4H BG checks, SSI Luz Thomas MD [facility] Work Phone: 02-12-2025 major gifts manager Note Feeling more pressure, requesting cervical exam SVE /-2 FHT: 145/mod/-accel/-decel Y[place] q2-3min IOL -Latent labor, unchanged exam. FSE/IUPC in place -Pit paused for late decelerations and minimal variability, now with moderate variability and no decelerations for the last 30 minutes. Plan to restart pitocin now -S/p AROM @ 1900 -CEFM, currently Cat I -Epidural infusing sPEC - dx based on sustained severe range BPs requiring acute IV treatment and unrelenting headache. NIELSEN currently minimal - s/p negative head imaging - required treatment with labetalol 20 mg on admission - HELLP negx2, P:C 0.17 - Nifed 30 daily, Bps currently normotensive to mild range - on Mg gtt until [address] Motta PGY4 Fide Deleon MD, PGY-2 [facility] Work Phone: 02-12-2025 major gifts manager Note To bedside for difficulty tracing FHR for the last 35 minutes. Patient sleeping and frequently turning, adding to difficulty tracing. Discussed FSE to aid in pitocin titration and for more accurate assessment, patient amenable. SVE /-2 FHT: 150/mod/+accel/-decel [place] q2-3min Latent labor, unchanged exam. FSE placed Continue pitocin per protocol. S/p AROM @ 1900 CEFM, currently Cat I Epidural infusing Fide Deleon MD, PGY-2 [facility] Work Phone: 02-11-2025 major gifts manager Note Requesting cervical exam. Also feels like baby flipped and wants to rescan for presentation. SVE /-2 FHT: 150/mod/+accel/-decel [place] q2-3min Latent labor Cephalic on BSUS Continue pitocin per protocol. S/p AROM @ 1900 CEFM, currently Cat I Epidural infusing Fide Deleon MD, PGY-2 [facility] Work Phone: 02-11-2025 major gifts manager Note Feeling more pressure with contractions, requesting cervical exam SVE 70/-3, unchanged from prior FHT: 145/mod/+accel/-decel [place] q2-3min Continue pitocin per protocol. S/p AROM @ 1900 CEFM, currently Cat I Epidural infusing Fide Deleon MD, PGY-2 [facility] Work Phone: 02-11-2025 major gifts manager Note To bedside for AROM. BSUS cephalic. head was palpated w/o other presenting parts. AROM for clear fluid with fundal pressure. SVE 4/70/-3, unchanged from prior FHT: 140/mod/+accel/-decel [place] irregular, q2-3min Continue pitocin per protocol CEFM, currently Cat I Epidural infusing S/p AROM for clear IUPC placed to monitor contractions Seen & Discussed with Dr. Motta, PGY4 Fide Deleon MD, PGY-2 [facility] Work Phone: 02-11-2025 major gifts manager Note To bedside for cervical exam at patient request. Pitocin has been restarted. Patient feeling nauseous and flushed and feels like her sugar is low. SVE 70/-3, unchanged from prior FHT: 140/mod/+accel/-decel Y[place] irregular, q1-2min BG 72 Continue pitocin per protocol CEFM, currently Cat I Epidural infusing Drinking juice now, will recheck BG shortly Transition fluids to D5LR Zofran for nausea Elyssa He MD PGY-4, Obstetrics and Gynecology [facility] Work Phone: 02-11-2025 major gifts manager Note Clinical Update S: Pt reports improvement in headache, wants to nap currently. Amenable to restarting pitocin infusion. O: BP (!) 142/86 Pulse 80 Temp 36 C (96.8 F) (Temporal) Resp 18 Ht 1.638 m (5' 4.5) Wt 141 kg (310 lb 13.6 oz) SpO2 (!) 93% BMI 52.53 kg/m A/P Restarting pitocin at this time Remains normotensive to mild range BG trend reviewed, last within range, no SSI indicated per protocol Plan for next cervical exam at around 1630 or earlier for FHT changes if indicated Elva He MD, MPH Obstetrics & Gynecology, PGY-1 [facility] Work Phone: 02-11-2025 major gifts manager Note Labor Progress Note Subjective: Patient resting comfortably, not feeling contractions. Reports headache is still present but has greatly improved with medications given. Denies chest pain, shortness of breath, RUQ pain, or other concerns. She would like to wait for her support person, Joel, to arrive this evening before having her baby. Objective: Vitals: BP 133/64 Pulse 73 Temp (!) 35.8 C (96.4 F) Resp 18 Ht 1.638 m (5' 4.5) Wt 141 kg (310 lb 13.6 oz) SpO2 100% BMI 52.53 kg/m SVE: 4/70/-3 FHT: 145/moderate/+accels/-deccels Yuba: q 2 mins A/P: Patient requesting pause in pitocin, currently at 2. Membranes intact CEFM, currently Category I Epidural as requested/Epidural infusing Elva He MD, MPH Obstetrics & Gynecology, PGY-1 [facility] Work Phone: 02-11-2025 major gifts manager Note Patient resting comfortably in bed. Amenable to exam to check CRB placement and second cytotec, if appropriate Cervical Exam Dilation: Fingertip Effacement (%): 50 Station: -3 Presentation: Vertex Method: Manual OB Examiner: MD Pancho Assessment Movement: Present Mode: External US Baseline Heart Rate (bpm): 150 bpm Baseline Classification: Normal Variability: Moderate (Between 6 and 25 BPM) Pattern: Accelerations Pattern Observations: Pancho SEAMAN at bedside performing ultrasound Multiple Births: No Decelerations: No Contraction Frequency: irritability A/P: IOL - CRB in place. Second cytotec placed - Epidural infusing - CEFM; Cat 1 currently - GBS pending, PCN Plan - Patient desires CRB and cyto induction. After discussion, she is okay with standard continuous infusion of pitocin as opposed to pulses of low dose pitocin - Patient desires immediate skin to skin along with delivering her own baby hands over hands with the provider and delayed cord clamping after pulseless cord. Also desires to cut own cord. Discussed that this may be difficult d/t variables such as length of cord and status of baby at the time of delivery. Patient understands that assessment under the warmer will be required shortly after delivery and is okay with baby on chest during delayed cord clamping, if appropriate. - Patient desires to be able to go with baby to NICU to prior negative experiences missing care of her . Discussed that she will be on 24 hours of Mg , but patient desires to be taken by nursing to NICU while on Mg. Discussed this is dependent on staffing and BP control. Will continue to readdress Fide Deleon MD, PGY-2 [facility] Work Phone: 02-11-2025 major gifts manager Note Labor induction asset protection officer at bedside to rescan for presentation as fetus previously found to be oblique. After draining bladder with taveras catheter placement and position changes, fetus now cephalic on BSUS. CRB and Cyto#1 placed at that time. For second dose in 3 hours if CRB still in situ, FHR reassuring and contractions aren't too frequent. PCN started for GBS unk. FHR: 140/mod/+accel/-decel Yuba: no contractions D/w Dr. Hilda Tucker MD, PGY-3 [facility] Work Phone: 02-10-2025 Consult note Formatting of th is note is different from the original. NICU CONSULT NOTE Dayna Tinsley is a 33 y.o. with [facility] 04/06/2025, current GA 32w1d,by Ultrasound presenting with unrelenting headache in the setting of severe pre-eclampsia. Requesting Physician/Service: Clair Castro MD/OB Consulting Physician/Service: Zina Rodríguez DO and Evens Alfaro MD Reason for Consultation: Planning IOL for sPEC at 32w1d Complications: complicated by IUI w/ sperm donor, gHTN, severe pre-eclampsia with unrelenting headache and blurry vision, GDMA2 (on insulin), depression with history of post- psychosis, Crohns disease, and tobacco use. Has history of HELLP and seizure in prior pregnancies. History of 33-3 weekers. EFW 2395g (99%ile) on 02/05. Received BMZ x2 (will be complete at 2200 tonight) and Mg. labs: Lab Results Component Value Date ABO O 02/08/2025 [facility] POS 02/08/2025 ABSCRN NEG 02/08/2025 screens negative (see media tab 12/23/24 [facility] Referral for labs) Toxicology: No results found for: AMPHETAMINE, MAMPHBLDS, BARBITURATE, BARBSCRNUR, BENZODIAZ, BENZO, BUPRENBLDS, CANNABBLDS, CANNABINOID, COCBLDS, COCAI, METHABLDS, METH, OXYBLDS, OXYCODONE, PCPBLDS, PCP, OPIATBLDS, OPIATE, FENTANYL, DRBLDCOMM Labs: Lab Results Component Value Date SYPHT Nonreactive 02/08/2025 Imaging: === Results for orders placed during the hospital encounter of 02/05/25 === US OB follow UP transabdominal approach [[id number]] 02/05/2025 Status: Normal Medical History She has a past medical history of Anxiety, Depression, and psychosis (Multi). Family History Family History Problem Relation Name Age of Onset Mental illness Mother No Known Problems Father Breast cancer Neg Hx Social History She reports that she has quit smoking. Her smoking use included cigarettes. She does not have any smokeless tobacco history on file. She reports that she does not drink alcohol and does not use drugs. Assessment/Recommendations: Dayna Tinsley is a 33 y.o. at 32w1d who presented with unrelenting headache in the setting of severe pre-eclampsia, with complicated by gHTN, GDMA2 (on insulin), depression with history of post- psychosis, Crohns disease. I met with Dayna. The patient has a prior history of children (33-36 weeks). We discussed what to expect in the delivery room with our team. Mom expressed that she strongly desires to see and touch her baby prior to transfer to the NICU. Issues of prematurity discussed included: 1. Delivery room interventions including need to deliver in OR, need for a team for baby, and providing breathing assessment and support 2. Respiratory distress syndrome and the need for potential CPAP, intubation, or surfactant for underdeveloped lungs 3. IVH - does not meet criteria for HUS screening automatically at 32w1 and EFW, however discussed increased risk of IVH with refusal of Vitamin K 4. Nutrition. I encouraged Dayna Tinsley to breastfeed which she is planning on doing. We discussed pumping immediately after delivery and 8x per day to provide milk during the hospital stay. Briefly discussed adverse events of NEC, need for donor breast milk if milk is not available. Mother does consent to use of donor human milk. 5. Hypoglycemia - discussed at length that baby is at risk in setting of gDM and will need IV dextrose fluids and monitoring of blood glucose 6. Discussed initial labs to expect to be drawn on baby 5. Length of stay 6. We discussed jaundice and need for phototherapy 7. Immaturity of PO feeding and need for NG supplementation 8. Risk for infection and possible need for antibiotics 9. Possible procedures including central line placement Mother was appropriately concerned about her child Everleigh and listened attentively throughout the consultation. She was unaccompanied at the time of consult, but identified her support people as her friend and boyfriend (not FOB), who would likely be here later. The biggest concerns were being able to see her baby after delivery and being able to come up to the NICU as soon as possible to be with her. Mom expressed concerns from prior negative experiences with her other children at other NICUs and informed me that she has a lot of anxiety around trusting her baby's care when she is not present. She declines Vitamin K, erythromycin ointment, and Hepatitis B vaccine for Everleigh. I discussed why we give Vitamin K and the risks of not giving it to newborns, including bleeding (such as IVH, especially in prematurity) which could lead to serious complications or even . She also strongly declines any pacifier use, bottles, or a bath. Time was given to ask questions. Patient made aware that Neonatology will be present for delivery and that we remain available for any questions/concerns that might arise. Thank you. Zina Rodríguez DO NICU Fellow, PGY-4 02/10/25 Cosigned by Evens Alfaro MD at 02/10/2025 4:35 PM EDT Associated attestation - Evens Alfaro MD - 02/10/2025 4:35 PM EDT I saw and evaluated the patient. I personally obtained the mixon and critical portions of the history and physical exam or was physically present for mixon and critical portions performed by the resident/fellow. I reviewed the resident/fellow's documentation and discussed the patient with the resident/fellow. I agree with the resident/fellow's medical decision making as documented in the note. [facility] Work Phone: 02-10-2025 major gifts manager Note ANTEPARTUM CHECK IN NOTE SUBJECTIVE Patient doing well with no vision changes, no RUQ pain. She has no CP, no SOB. She has no vb, no lof, no ctx, and feels good FM. She states that she continues to have her 3/10 pulsating NIELSEN with minimal improvement with medications. OBJECTIVE Visit Vitals BP 124/63 Pulse 106 Temp 36.3 C (97.3 F) (Temporal) Resp 18 Cervical Exam Dilation: Fingertip Effacement (%): 50 Station: -3 Presentation: Cephalic Method: Manual OB Examiner: MD Pancho Assessment Movement: Present Mode: External US Baseline Heart Rate (bpm): 135 bpm Baseline Classification: Normal Variability: Moderate (Between 6 and 25 BPM) Pattern: Accelerations Pattern Observations: unable to determine periodic changes Multiple Births: No Decelerations: No Contraction Frequency: none A&P sPEC - dx based on sustained severe range BPs requiring acute IV treatment and unrelenting headache - required treatment with labetalol 20 mg on admission - HELLP negx2, P:C 0.17 - Nifed 30 daily, Bps currently normotensive to low mild range - on Mg gtt due to NIELSEN - NIELSEN continues to be persistent, currently 01/12, will continue to treat. Discussed with MFM, okay to start induction at 6pm in anticipation of delivery after BMZ complete time GDMA2 - Current regimen: NPH 74/74, lispro 74u with meals, lispro 18u with snacks, last BG 124 - Diabetic diet - for q4h BG in latent and active labor Wellbeing - Cat I tracing - Last cephalic presentation on 02/09 PM - GBS pending 02/08 - sp BMZ 02/08-02/09 - Last growth on 02/05 2395g 99%, AC >99% - sp NICU consult Luz Thomas MD T [facility] Work Phone: 02-09-2025 Plan of care note The patient's goals for the shift include blood sugar control and blood pressure control The clinical goals for the shift include reassuring FHT, no signs or symptoms of preeclampsia, blood pressures under 160/110, blood sugar on insulin gtt and beta Over the shift, the patient did make progress toward the following goals Problem: Antepartum Goal: Maintain as long as maternal and/or condition is stable Outcome: Progressing Goal: Avoid/minimize constipation Outcome: Progressing Goal: No decrease in circulation/VTE Outcome: Progressing Goal: FHR remains reassuring Outcome: Progressing Goal: Minimize anxiety/maximize coping Outcome: Progressing Problem: Hypertensive Disorder of (HDP) Goal: Minimal s/sx of HDP and BP<160/110 Outcome: Progressing Goal: Adequate urine output (0.5 ml/kg/hr) Outcome: Progressing Problem: Pain - Adult Goal: Verbalizes/displays adequate comfort level or baseline comfort level Outcome: Progressing Problem: Safety - Adult Goal: Free from fall injury Outcome: Progressing Problem: Discharge Planning Goal: Discharge to home or other facility with appropriate resources Outcome: Progressing Problem: Chronic Conditions and Co-morbidities Goal: Patient's chronic conditions and co-morbidity symptoms are monitored and maintained or improved Outcome: Progressing Problem: Diabetes Goal: Achieve decreasing blood glucose levels by end of shift Outcome: Progressing Goal: Maintain electrolyte levels within acceptable range throughout shift Outcome: Progressing Goal: Maintain glucose levels >70mg/dl to <250mg/dl throughout shift Outcome: Progressing Goal: No changes in neurological exam by end of shift Outcome: Progressing Goal: Learn about and adhere to nutrition recommendations by end of shift Outcome: Progressing Goal: Vital signs within normal range for age by end of shift Outcome: Progressing Goal: Increase self care and/or family involovement by end of shift Outcome: Progressing Goal: Receive DSME education by end of shift Outcome: Progressing [facility] 02-09-2025 major gifts manager Note To bedside to evaluate patient after nurse reports headache returned and she is now having dark spots. Patient reports posterior headache that goes down the back of her neck and is associated with muscle spasms. Also states that she feels pressure behind her eyes, worsening swelling in her face and extremities, nausea, and dark spots in the periphery of her vision. Denies RUQ pain, chest pain, SOB. BP 120/63 Pulse 82 Temp 36.1 C (97 F) (Temporal) Resp 18 Ht 1.638 m (5' 4.5) Wt 141 kg (310 lb 13.6 oz) SpO2 98% BMI 52.53 kg/m BG 109 A/P: - Will restart magnesium gtt now - Draw repeat HELLP labs - Treat with flexeril, phenergan (previously given tylenol, benadryl without improvement) - If no improvement, consider head imaging Elyssa He MD PGY-4, Obstetrics and Gynecology [facility] Work Phone: 02-09-2025 Consult note Associated Order (s): IP CONSULT TO MATERNAL- MEDICINE MFM Consult Reason for Consult: sPEC, A2DM HPI: From admission H&P: Dayna Tinsley is a 33 y.o. year old at 31w6d who presents to triage with headache, BP 179/95 at home, contractions, and uncontrollable blood sugars. Reports 5/10 frontal headache. Pt woke up with a NIELSEN and took tylenol early this am without relief. Around noon, it got worse so she took a magnesium tablet but no relief. Reports intermittent floaters but no scotoma, RUQ pain, chest pain, or unusual shortness of breath. Pt has some shortness of breath with activity but not at rest. Reports Bps normally 120s/70s-80s but elevated today. Having 4-5 contractions per hr today. Denies vaginal bleeding, loss of fluid, vaginal symptoms, and reports good FM prior to the start of the contractions. Now it is slightly decreased. Reports diarrhea for the past three days with vomiting episodes x 2 today. Was able to eat at 1530 and has not vomited since. Reports some LUQ pain. Denies fever, chills. Reports blood sugars per CGM ranging from 50-300 today. Reports she adjusted insulin dosing based on blood sugars around 240 earlier. Insulin today includes: NPH 60 units at 0536 and another 10 units at 1419. She has also had Lispro 80 units this am and another 40 units at 1419. She adjusted her dosing to try to avoid a trip to triage. notables: - A2DM: NPH 62/62, lispro 60 w meals, 15 w snacks. 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 Underwent EEG monitoring that was unremarkable for seizure activity - Hx of cholecystectomy, LEEP, bowel ressection - Hx of bowel resection in s/o Crohn's disease in childhood, reporting remission x10 years, denies rectal/anal disease - H/o retained placenta c/b endometritis 2 weeks , managed by D&C - gHTN, baseline HELLP labs wnl, P:C 0.27. Per chart review from P1 , had a h/o cHTN. Patient reports completely normotensive blood pressures after 100 lb weight loss Problems (from 12/23/24 to present) Problem Noted Diagnosed Resolved Severe preeclampsia, third trimester ([facility]) 02/08/2025 by Dhara Bautista, [employer] TECHNICIAN-TRAILER RENTAL CLERK No Priority: Medium Polyhydramnios in third trimester ([facility]) 01/22/2025 by Veena Duvall MD No Priority: Medium Overview Addendum 01/29/2025 1:53 PM by Veena Duvall MD SERENA 27 on 01/22 -> resolved on 01/29 US History of loop electrosurgical excision procedure (LEEP) of cervix affecting in second trimester 01/08/2025 by Paulette Romero MD No Priority: Medium headache in third trimester ([facility]) 01/08/2025 by Paulette Romero MD No Priority: Medium Overview Signed 01/15/2025 12:27 PM by Veena Duvall MD Headches starting to worsen around 25 wks til present. Assoc w/ floaters over last few days. No hx of migraines. S/p triage visit 01/14, improved with meds and normotensive so discharged home. 31 weeks gestation of ([facility]) 01/01/2025 by Ramierz Tucker MD No Priority: Medium Overview Addendum 01/29/2025 1:52 PM by Veena Duvall MD Desired provider in labor: [] CNM [x] Physician [] Either Acceptable [] Blood Products: [] Yes, accepts [] No, needs counseling [x] Initial BMI: Could not be calculated [x] Labs: media tab [x] Cervical Cancer Screenin NILM/HPV other+ [x] Rh status: O pos [] Screen for IPV and Substance Use Risk: [] Genetic Screening (cfDNA): [x] First Trimester Anatomy Screen (11-13.6 wks): wnl 09/30 out of window [x] dated by: 13 wk US [x] Anatomy US: (19-20 wks), 01/01 [] Federal Sterilization consent signed (if indicated): [x] 1hr GCT at 24-28wks: GDMA2 started on insulin in triage [x] Rhogam (if indicated): NA [x] Surveillance (if indicated): weekly testing @32 wks, serial growths (27-32 wks, may be given up to 36 wks if initial window missed): declines all vaccines / (32-36 wks) ( to end of Nov): missed window [x] Feeding Intentions: [x] control method: declines [] GBS at 34-35 wks: [x] 39 weeks discussion of IOL vs. Expectant management: anticipate IOL at 37wga at the latest for gHTN [x] Mode of delivery ( anticipated ): Crohn disease (Multi) 01/01/2025 by Ramirez Tucker MD No Priority: Medium Overview Signed 01/01/2025 3:14 PM by Ramirez Tucker MD Patient reporting h/o Crohn's disease with bowel resection in childhood. Reporting remission x 10 year. Per documentation from P1 at [facility] colonoscopy: 05/2015 - No endoscopic findings to suggest diagnosis of Crohn's disease. - The examined portion of the ileum was normal. Biopsied. - The entire examined colon is normal on direct and retroflexion views. Biopsied. 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 Underwent EEG monitoring that was unremarkable for seizure activity Depression affecting in third trimester, antepartum ([facility]) 01/01/2025 by Ramirez Tucker MD No Priority: Medium Overview Addendum 01/22/2025 9:53 AM by Veena Duvall MD With associated anxiety. On Doxepin daily and prn Valium. follows with Dr. Rasmussen at [facility] Gestational hypertension, third trimester ([facility]) 12/25/2024 by Paulette Torrez MD No Priority: Medium Overview Addendum 02/04/2025 11:51 PM by Ramirez Tucker MD Reports h/o cHTN prior to P1 , resolved after Patient reporting h/o preeclampsia x3 and HELLP vs eclampsia in most recent , reporting concern for seizures. Received care for previous pregnancies in [place] and reporting that she is declines release of records. Denies h/o HTN outside of , although documented elevated blood pressures outside of at ED visits in 2022. During admission 12/23-12/25, discussed with patient that there is a possibility of super-imposed chronic hypertension that is contributing to her current presentation. She did have two unsustained severe range blood pressures while admitted, both during period of stress. Given high likelihood of patient with history of chronic hypertension, will not diagnose super-imposed pre-eclampsia during this admission. Also discussed with patient that given her reported significant history of SPEC, HELLP vs eclampsia, will treat her as being diagnosed with gestational hypertension. She will require twice weekly testing until delivery, delivery at 37.0 wga if not indicated sooner and weekly PEC labs. If the patient has two sustained severe range blood pressures, she is likely meeting criteria for SPEC vs siPEC w/SF. At the time of discharge, it was deemed that she should not be initiated on an oral anti-hypertensive. [x] PTC175 [x] BP cuff ordered and education provided [x] Baseline preE labs: wnl (12/2024), neg /, P:C 0.27 [x] Urine P:C: 0.27 (12/2024) [] Q3 week growth US: EFW 96%, AC 93% (01/15) [] Twice weekly testing w/ alternating BPPs and NSTs [x] Delivery timing and plan: 37.0 wga Insulin controlled gestational diabetes mellitus (GDM) in third trimester ([facility]) 12/25/2024 by Paulette Torrez MD No Priority: Medium Overview Addendum 01/29/2025 1:48 PM by Veena Duvall MD Patient presented to triage on 12/23/23 with blood glucose of 305. Reported a history of A2DM in 3 prior pregnancies. HgA1c 09/2024 was 5.4%. Patient denying diagnosis of pre gestational diabetes. HgA1c 12/2024 was 6.5%. Evaluated for DKA on admission, ruled out [] Attended Boot Camp [x] MFM Consult completed [] MFM 36 wk visit [] Serial growth ultrasounds starting at 28 weeks Last ultrasound: 01/15 (28wks) surveillance: [] Weekly at 32 weeks [] Twice weekly at 36 weeks Current Regimen: Regimen on discharge: NPH 20/30, Lispro 10 TID with meals (12/23) 12/29/2024: NPH 20/30 --> 30*/40* am/pm Lispro 10 with meals --> 15* with meals +SS 1unit for every 10 > 140 pre-meal check 01/01/2025 MFM visit 01/05/2025: NPH 30/40 -->40*/50* am/pm Lispro 15-20 --> 25* with meals 01/08/25 NPH 44/44 needs to space out more (stacking) -> consider transitioning to Lantus at next visit Lispro 30 with meals, 4 with snacks 01/15/25 NPH 44/44, Lispro 30-35 with meals. Reminded patient to space NPH appropriately. Increased interval growth and mild poly on US today. 01/21/2025: NPH 44/44 --> 44/50* Lispro 45 with meals --> 52* with meals +15 with snacks 01/29/2025: NPH 54/54. Lispro 52 with meals + 15 with snacks (and pt gives herself SSI as well) Hyperglycemia in ([facility]) 12/23/2024 by Celena Solis APRN-TRAILER RENTAL CLERK 01/01/2025 by Ramirez Tucker MD Obstetrical History OB History 14 Para 5 Term 0 5 AB 8 Living 5 SAB 8 IAB Ectopic Multiple Live Births 5 Past Medical History Past Medical History: Diagnosis Date Anxiety Depression psychosis (Multi) Past Surgical History Past Surgical History: Procedure Laterality Date BOWEL RESECTION CERVICAL BIOPSY W/ LOOP ELECTRODE EXCISION CHOLECYSTECTOMY DILATION AND CURETTAGE OF UTERUS s/p RPOC Social History Social History Socioeconomic History Marital status: Spouse name: Not on file Number of children: Not on file Years of education: Not on file Highest education level: Not on file Occupational History Not on file Tobacco Use Smoking status: Former Types: Cigarettes Smokeless tobacco: Not on file Vaping Use Vaping status: Never Used Substance and Sexual Activity Alcohol use: Never Drug use: Never Sexual activity: Not on file Other Topics Concern Not on file Social History Narrative Not on file Social Drivers of Health Financial Resource Strain: Low Risk (02/09/2025) Overall Financial Resource Strain (CARDIA) Difficulty of Paying Living Expenses: Not hard at all Recent Concern: Financial Resource Strain - Medium Risk (12/23/2024) Overall Financial Resource Strain (CARDIA) Difficulty of Paying Living Expenses: Somewhat hard Food Insecurity: No Food Insecurity (02/09/2025) Hunger Vital Sign Worried About Running Out of Food in the Last Year: Never true Ran Out of Food in the Last Year: Never true Transportation Needs: No Transportation Needs (02/09/2025) PRAPARE - Transportation Lack of Transportation (Medical): No Lack of Transportation (Non-Medical): No Physical Activity: Not on file Stress: Not on file Social Connections: Not on file Intimate Partner Violence: Not At Risk (02/08/2025) Humiliation, Afraid, Rape, and Kick questionnaire Fear of Current or Ex-Partner: No Emotionally Abused: No Physically Abused: No Sexually Abused: No Allergies Allergies Allergen Reactions Solu-Medrol Mix-O-Vial Anaphylaxis Versed [Midazolam] Anxiety Reglan [Metoclopramide Hcl] Other Extreme restlessness Medications Medications Prior to Admission Medication Sig Dispense Refill Last Dose/Taking alcohol swabs pads, medicated Use 1, up to 5 times a day 200 each 3 02/08/2025 blood sugar diagnostic (Blood Glucose Test) strip Use 1 strip 4-6 times a day during 150 each 3 02/08/2025 blood-glucose meter misc Use for testing blood sugar fasting and 1 hour after each meal. 4-6 times per day during 1 each 0 02/08/2025 blood-glucose sensor (Miromatrix Medical G7 Sensor) device Use 1 sensor and change every 10 days 3 each 0 02/08/2025 diazePAM (Valium) 5 mg tablet Take 1 tablet (5 mg) by mouth every 8 hours if needed for anxiety. Past Month famotidine (Pepcid) 10 mg tablet Take 1 tablet (10 mg) by mouth 2 times a day. 60 tablet 2 02/08/2025 insulin lispro (HumaLOG KwikPen Insulin) 100 unit/mL pen Inject 25 units with each meal. May increase to 150 units total per day during as needed. 45 mL 3 02/08/2025 lancets 33 gauge misc Use 1 lancet 4-6 times per day during 200 each 3 02/08/2025 magnesium oxide (Mag-Ox) 400 mg (241.3 mg magnesium) tablet Take 1 tablet (400 mg) by mouth once daily. Take a bedtime 30 tablet 11 02/08/2025 magnesium oxide (Mag-Ox) 400 mg (241.3 mg magnesium) tablet Take 0.5 tablets (200 mg) by mouth 2 times a day as needed (Headache). 30 tablet 0 02/08/2025 modafinil (Provigil) 200 mg tablet Take 0.5 tablets (100 mg) by mouth once daily. Past Month pantoprazole (Protonix) 40 mg EC tablet Take 1 tablet (40 mg) by mouth once daily in the morning. Take before meals. Do not crush, chew, or split. 30 tablet 11 Past Week pen needle, diabetic (BD Shiela 2nd Gen Pen Needle) 32 gauge x 5/32 needle Use 1 per injection, up to 8 times a day 200 each 3 02/08/2025 promethazine (Phenergan) 25 mg tablet Take 1 tablet (25 mg) by mouth every 6 hours if needed for nausea or vomiting. 180 tablet 1 02/08/2025 scopolamine (Transderm-Scop) 1 mg over 3 days patch [address] 1 patch over 72 hours on the skin every 3rd day. 10 patch 2 Past Week doxepin (SINEquan) 75 mg capsule Take 1 capsule (75 mg) by mouth once daily at bedtime. 02/07/2025 insulin NPH, Isophane, (NovoLIN N FlexPen) 100 unit/mL (3 mL) pen Inject 40 units in the morning and 50 units at night. May increase to 150 units total per day during as needed. 45 mL 3 OBJECTIVE: BP (!) 138/93 Pulse (!) 114 Temp 36 C (96.8 F) (Temporal) Resp 18 Ht 1.638 m (5' 4.5) Wt 141 kg (310 lb 3 oz) SpO2 98% BMI 52.42 kg/m Temp Min: 36 C (96.8 F) Max: 37.4 C (99.3 F) Pulse Min: 82 Max: 117 BP Min: 114/66 Max: 171/91 Physical exam: General: AAOx3, No acute distress Cardiovascular: Warm and well perfused Respiratory: Normal respiratory effort Abdominal: Soft, gravid, non-tender, no rebound or guarding, no palpable contractions Extremities: Warm, well perfused NST: Baseline 130, accelerations +, - decelerations, mod variability Yuba: quiet Labs: Lab Results Component Value Date WBC 19.1 (H) 02/09/2025 HGB 11.2 (L) 02/09/2025 HCT 35.4 (L) 02/09/2025 PLT 266 02/09/2025 Lab Results Component Value Date GLUCOSE 136 (H) 02/09/2025 NA 136 02/09/2025 K 3.9 02/09/2025 CL 105 02/09/2025 CO2 22 02/09/2025 ANIONGAP 13 02/09/2025 BUN 8 02/09/2025 CREATININE 0.52 02/09/2025 EGFR >90 02/09/2025 CALCIUM 8.5 (L) 02/09/2025 ALBUMIN 3.3 (L) 02/09/2025 PROT 6.2 (L) 02/09/2025 ALKPHOS 87 02/09/2025 ALT 7 02/09/2025 AST 10 02/09/2025 BILITOT 0.4 02/09/2025 ASSESSMENT AND PLAN: 33 y.o. at 32w0d by 13wk US with new sPEC. sPEC - dx based on sustained severe range BPs requiring acute IV treatment and unrelenting headache - required treatment with labetalol 20 mg on admission - HELLP negx2, P:C 0.17 - Nifed 30 daily, Bps currently normotensive to low mild range - s/p magnesium overnight until headache resolved - Discussed recommendation for delivery at 34wga as long as maternal and status are stable. Patient desiring delivery at 35wga. Will continue to discuss. GDMA2 - current regimen: NPH 62/62, lispro 60 with meals, lispro 15 with snacks - Started on insulin gtt in s/o BMZ. Transition back to long acting insulin w/ new regimen: NPH 74/74, lispro 74 w meals, 18 w snacks. - BHB, VBG wnl, Gap 9, low concern for DKA - Diabetic diet History of Depression - previously on Doxepin - continue to monitor - declined SW consult Wellbeing - Cat I tracing - Transverse presentation; Discussed recommendation for CS if not vertex at time of delivery. Patient adamant that she does not want a unless she were dying. Will continue to discuss. - GBS pending 02/08 - BMZ #1, for second dose in 24H - Last growth on 02/05: EFW 2395g 99%, AC >99% - Polyhydramnios on 01/22 --> resolved on 01/29 US - NICU consult pending Dispo: Continue inpatient management with plan for delivery at 34wga or sooner pending maternal/ status Pt seen and discussed with MFM Attending, Dr. [place]. Amanda Rivas MD [facility] Pager [phone] Assessment & Plan Severe preeclampsia, third trimester ([facility]) Cosigned by Earl Colorado MD at 02/10/2025 11:03 AM EDT Associated attestation - Earl Colorado MD - 02/10/2025 11:03 AM EDT I saw and evaluated the patient. I personally obtained the mixon and critical portions of the history and physical exam or was physically present for mixon and critical portions performed by the resident/fellow. I reviewed the resident/fellow's documentation and discussed the patient with the resident/fellow. I agree with the resident/fellow's medical decision making as documented in the note. [facility] Work Phone: 02-09-2025 major gifts manager Note Update in plan of care Headache improving, 12/15. Denies vision changes, CP, SOB, RUQ pain. No obstetric concerns. Vitals: 02/08/25 2328 BP: Pulse: Resp: Temp: 36.8 C (98.2 F) SpO2: General: Lying in bed in NAD Skin: No rashes/lesions/erythema Neuro: Awake, alert, conversational CV: Regular rate Respiratory: Even and unlabored on RA Extremities: No edema, discoloration, or pain in BLE Psych: appropriate mood and affect Cervical Exam Presentation: Transverse Method: Ultrasound OB Examiner: Pancho Assessment Movement: Present Mode: External US Baseline Heart Rate (bpm): 150 bpm Baseline Classification: Normal Variability: Moderate (Between 6 and 25 BPM) Pattern: Accelerations Multiple Births: No Decelerations: No Contraction Frequency: irregular A/p: 33 yo at 32w0d here with newly dx sPEC gHTN --> sPEC - dx based on sustained severe range BPs requiring acute IV treatment and unrelenting headache - required treatment with labetalol 20 mg on admission - HELLP neg, P:C 0.17, repeat set pending for 6 hours (ordered for 0110) - NIELSEN improving - Continue Mg until BP stabilization and NIELSEN resolution - start Nifed 30 daily - monitor UOP GDMA2 - current regimen: NPH 62/62, lispro 60 with meals, lispro 15 with snacks - POCT 140, CGM 167; pt re-calibrated CGM - BHB, VBG wnl, Gap 9 - low c/f DKA - Insulin gtt with BMZ administration - Diabetic diet. For home lispro while on insulin drip while eating Contractions - Yuba: irregular but difficult to trace pattern d/t maternal movement - suspect r/t dehydration - FT/50/-3 N/V/D - lipase, covid/flu, CMP wnl - Patient reports these symptoms History of Depression - previously on Doxepin - continue to monitor - plan SW consult Wellbeing - Cat I tracing - GBS collected - BMZ #1, for second dose in 24H if still - Last growth on 01/15 at 28.3 wga: 1588g (96% with AC 93%) - Polyhydramnios on 01/22 --> resolved on 01/29 US - MFM and NICU consults Contraception - declines Seen & Discussed with Dr. Joslyn Deleon MD, PGY-2 [facility] Work Phone: 02-08-2025 History and physical note Triage H&P Dayna Tinsley is a 33 y.o. year old at 31w6d who presents to triage for: Chief Complaint Patient presents with Contractions Hypertension Assessment/Plan: gHTN --> sPEC - dx based on sustained severe range BPs requiring acute IV treatment and unrelenting headache - required treatment with labetalol 20 mg on admission, continue to cycle BPs per protocol and treat with IV antihypertensives as needed - HELLP neg, P:C pending, repeat set pending for 6 hours (ordered for 0110) - 03/14 frontal headache pending resolution with tylenol, benadryl, flexeril - will start 6g magnesium bolus followed by 2g/hr for seizure prophylaxis, continue to monitor for signs/symptoms of magnesium toxicity - start Nifed 30 daily - monitor UOP - needs scanned and consented by L&D team GDMA2 - current regimen: - POCT 140, CGM 167; pt re-calibrated CGM - BHB, VBG wnl, Gap 9 - low c/f DKA - Insulin orders per L&D team Contractions - Yuba: irregular but difficult to trace pattern d/t maternal movement - suspect r/t dehydration - SVE per L&D team once admitted N/V/D - lipase pending in s/o LUQ pain - Covid/flu pending - CMP wnl History of Depression - previously on Doxepin - continue to monitor - plan SW consult Maternal Well-being - Discussed plan of care - All questions and concerns addressed IUP @ 31w6d - lab work reviewed - Cat II tracing , indeterminate with pt body habitus and movement - GBS needs to be collected on admission - BMZ per protocol - Last growth on 01/15 at 28.3 wga: 1588g (96% with AC 93%) - Polyhydramnios on 01/22 --> resolved on 01/29 US - MFM and NICU consults Contraception - declines Admit to L&D Plan and tracing reviewed with Dr. Castro. Report to Dr. Deleon and Dr. Reinoso for continuation of care. Dhara Bautista, [employer] TECHNICIAN-TRAILER RENTAL CLERK Medical Problems Problem List * (Principal) Severe preeclampsia, third trimester ([facility]) Gestational hypertension, third trimester ([facility]) Overview Addendum 02/04/2025 11:51 PM by Ramirez Tucker MD Reports h/o cHTN prior to P1 , resolved after Patient reporting h/o preeclampsia x3 and HELLP vs eclampsia in most recent , reporting concern for seizures. Received care for previous pregnancies in [place] and reporting that she is declines release of records. Denies h/o HTN outside of , although documented elevated blood pressures outside of at ED visits in 2022. During admission 12/23-12/25, discussed with patient that there is a possibility of super-imposed chronic hypertension that is contributing to her current presentation. She did have two unsustained severe range blood pressures while admitted, both during period of stress. Given high likelihood of patient with history of chronic hypertension, will not diagnose super-imposed pre-eclampsia during this admission. Also discussed with patient that given her reported significant history of SPEC, HELLP vs eclampsia, will treat her as being diagnosed with gestational hypertension. She will require twice weekly testing until delivery, delivery at 37.0 wga if not indicated sooner and weekly PEC labs. If the patient has two sustained severe range blood pressures, she is likely meeting criteria for SPEC vs siPEC w/SF. At the time of discharge, it was deemed that she should not be initiated on an oral anti-hypertensive. [x] XAC225 [x] BP cuff ordered and education provided [x] Baseline preE labs: wnl (12/2024), neg 01/08, P:C 0.27 [x] Urine P:C: 0.27 (12/2024) [] Q3 week growth US: EFW 96%, AC 93% (01/15) [] Twice weekly testing w/ alternating BPPs and NSTs [x] Delivery timing and plan: 37.0 wga Insulin controlled gestational diabetes mellitus (GDM) in third trimester ([facility]) Overview Addendum 01/29/2025 1:48 PM by Veena Duvall MD Patient presented to triage on 12/23/23 with blood glucose of 305. Reported a history of A2DM in 3 prior pregnancies. HgA1c 09/2024 was 5.4%. Patient denying diagnosis of pre gestational diabetes. HgA1c 12/2024 was 6.5%. Evaluated for DKA on admission, ruled out [] Attended Boot Camp [x] MFM Consult completed [] [facility] 36 wk visit [] Serial growth ultrasounds starting at 28 weeks Last ultrasound: 01/15 (28wks) surveillance: [] Weekly at 32 weeks [] Twice weekly at 36 weeks Current Regimen: Regimen on discharge: NPH 20/30, Lispro 10 TID with meals (12/23) 12/29/2024: NPH 20/30 --> 30*/40* am/pm Lispro 10 with meals --> 15* with meals +SS 1unit for every 10 > 140 pre-meal check 01/01/2025 MF visit 01/05/2025: NPH 30/40 -->40*/50* am/pm Lispro 15-20 --> 25* with meals 01/08/25 NPH 44/44 needs to space out more (stacking) -> consider transitioning to Lantus at next visit Lispro 30 with meals, 4 with snacks 01/15/25 NPH 44/44, Lispro 30-35 with meals. Reminded patient to space NPH appropriately. Increased interval growth and mild poly on US today. 01/21/2025: NPH 44/44 --> 44/50* Lispro 45 with meals --> 52* with meals +15 with snacks 01/29/2025: NPH 54/54. Lispro 52 with meals + 15 with snacks (and pt gives herself SSI as well) 31 weeks gestation of ([facility]) Overview Addendum 01/29/2025 1:52 PM by Veena Duvall MD Desired provider in labor: [] CNM [x] Physician [] Either Acceptable [] Blood Products: [] Yes, accepts [] No, needs counseling [x] Initial BMI: Could not be calculated [x] Labs: media tab [x] Cervical Cancer Screenin NILM/HPV other+ [x] Rh status: O pos [] Screen for IPV and Substance Use Risk: [] Genetic Screening (cfDNA): [x] First Trimester Anatomy Screen (11-13.6 wks): wnl 09/30 out of window [x] dated by: 13 wk US [x] Anatomy US: (19-20 wks), 01/01 [] Federal Sterilization consent signed (if indicated): [x] 1hr GCT at 24-28wks: GDMA2 started on insulin in triage [x] Rhogam (if indicated): NA [x] Surveillance (if indicated): weekly testing @32 wks, serial growths (27-32 wks, may be given up to 36 wks if initial window missed): declines all vaccines 3/6 (32-36 wks) ( to end of Nov): missed window [x] Feeding Intentions: [x] control method: declines [] GBS at 34-35 wks: [x] 39 weeks discussion of IOL vs. Expectant management: anticipate IOL at 37wga at the latest for gHTN [x] Mode of delivery ( anticipated ): Crohn disease (Multi) Overview Signed 01/01/2025 3:14 PM by Ramirez Tucker MD Patient reporting h/o Crohn's disease with bowel resection in childhood. Reporting remission x 10 year. Per documentation from P1 at [facility] colonoscopy: 05/2015 - No endoscopic findings to suggest diagnosis of Crohn's disease. - The examined portion of the ileum was normal. Biopsied. - The entire examined colon is normal on direct and retroflexion views. Biopsied. psychosis (Multi) Overview Addendum 01/20/2025 10:59 AM by Yuliya Chavira MD P2 She had auditory hallucinations for 2 days, resolved with admission at [facility]. No thoughts of harming herself or baby at the time. History of pre-eclampsia History of HELLP syndrome, currently ([facility]) Overview Signed 01/01/2025 3:27 PM by Ramirez Tucker MD Reports hx of HELLP in P5 c/b convulsions. Underwent EEG monitoring that was unremarkable for seizure activity Retained products of conception post-del w/o hemorrh but w other compl Overview Signed 01/01/2025 3:28 PM by Ramirez Tucker MD H/o retained placenta c/b endometritis 2 weeks , managed by D&C Depression affecting in third trimester, antepartum ([facility]) Overview Addendum 01/22/2025 9:53 AM by Veena Duvall MD With associated anxiety. On Doxepin daily and prn Valium. follows with Dr. Rasmussen at [facility] History of loop electrosurgical excision procedure (LEEP) of cervix affecting in second trimester Acid reflux Overview Signed 01/08/2025 2:38 PM by Paulette Romero MD BID pepsid and protonix headache in third trimester ([facility]) Overview Signed 01/15/2025 12:27 PM by Veena Duvall MD Headches starting to worsen around 25 wks til present. Assoc w/ floaters over last few days. No hx of migraines. S/p triage visit 01/14, improved with meds and normotensive so discharged home. Polyhydramnios in third trimester ([facility]) Overview Addendum 01/29/2025 1:53 PM by Veena Duvall MD SERENA 27 on 01/22 -> resolved on 01/29 US Subjective Dayna Tinsley is a 33 y.o. year old at 31w6d who presents to triage with headache, BP 179/95 at home, contractions, and uncontrollable blood sugars. Reports 5/10 frontal headache. Pt woke up with a NIELSEN and took tylenol early this am without relief. Around noon, it got worse so she took a magnesium tablet but no relief. Reports intermittent floaters but no scotoma, RUQ pain, chest pain, or unusual shortness of breath. Pt has some shortness of breath with activity but not at rest. Reports Bps normally 120s/70s-80s but elevated today. Having 4-5 contractions per hr today. Denies vaginal bleeding, loss of fluid, vaginal symptoms, and reports good FM prior to the start of the contractions. Now it is slightly decreased. Reports diarrhea for the past three days with vomiting episodes x 2 today. Was able to eat at 1530 and has not vomited since. Reports some LUQ pain. Denies fever, chills. Reports blood sugars per CGM ranging from 50-300 today. Reports she adjusted insulin dosing based on blood sugars around 240 earlier. Insulin today includes: NPH 60 units at 0536 and another 10 units at 1419. She has also had Lispro 80 units this am and another 40 units at 1419. She adjusted her dosing to try to avoid a trip to triage. OB History 15 Para 6 Term 0 6 AB 8 Living 5 SAB 8 IAB Ectopic Multiple Live Births 5 Past Surgical History: Procedure Laterality Date BOWEL RESECTION CERVICAL BIOPSY W/ LOOP ELECTRODE EXCISION CHOLECYSTECTOMY DILATION AND CURETTAGE OF UTERUS s/p RPOC Social History Socioeconomic History Marital status: Spouse name: Not on file Number of children: Not on file Years of education: Not on file Highest education level: Not on file Occupational History Not on file Tobacco Use Smoking status: Former Types: Cigarettes Smokeless tobacco: Not on file Vaping Use Vaping status: Never Used Substance and Sexual Activity Alcohol use: Never Drug use: Never Sexual activity: Not on file Other Topics Concern Not on file Social History Narrative Not on file Social Drivers of Health Financial Resource Strain: Medium Risk (12/23/2024) Overall Financial Resource Strain (CARDIA) Difficulty of Paying Living Expenses: Somewhat hard Food Insecurity: No Food Insecurity (12/23/2024) Hunger Vital Sign Worried About Running Out of Food in the Last Year: Never true Ran Out of Food in the Last Year: Never true Transportation Needs: No Transportation Needs (12/23/2024) PRAPARE - Transportation Lack of Transportation (Medical): No Lack of Transportation (Non-Medical): No Physical Activity: Not on file Stress: Not on file Social Connections: Not on file Intimate Partner Violence: Not At Risk (12/23/2024) Humiliation, Afraid, Rape, and Kick questionnaire Fear of Current or Ex-Partner: No Emotionally Abused: No Physically Abused: No Sexually Abused: No Allergies Allergen Reactions Solu-Medrol Mix-O-Vial Anaphylaxis Versed [Midazolam] Anxiety Reglan [Metoclopramide Hcl] Other Extreme restlessness Medications Prior to Admission Medication Sig Dispense Refill Last Dose/Taking alcohol swabs pads, medicated Use 1, up to 5 times a day 200 each 02/08/2025 blood sugar diagnostic (Blood Glucose Test) strip Use 1 strip 4-6 times a day during 150 each 02/08/2025 blood-glucose meter misc Use for testing blood sugar fasting and 1 hour after each meal. 4-6 times per day during 1 each 0 02/08/2025 blood-glucose sensor (Zoopcom G7 Sensor) device Use 1 sensor and change every 10 days 3 each 0 02/08/2025 diazePAM (Valium) 5 mg tablet Take 1 tablet (5 mg) by mouth every 8 hours if needed for anxiety. Past Month famotidine (Pepcid) 10 mg tablet Take 1 tablet (10 mg) by mouth 2 times a day. 60 tablet 2 02/08/2025 insulin lispro (HumaLOG KwikPen Insulin) 100 unit/mL pen Inject 25 units with each meal. May increase to 150 units total per day during as needed. 45 mL 3 02/08/2025 lancets 33 gauge misc Use 1 lancet 4-6 times per day during 200 each 3 02/08/2025 magnesium oxide (Mag-Ox) 400 mg (241.3 mg magnesium) tablet Take 1 tablet (400 mg) by mouth once daily. Take a bedtime 30 tablet 11 02/08/2025 magnesium oxide (Mag-Ox) 400 mg (241.3 mg magnesium) tablet Take 0.5 tablets (200 mg) by mouth 2 times a day as needed (Headache). 30 tablet 0 02/08/2025 pantoprazole (Protonix) 40 mg EC tablet Take 1 tablet (40 mg) by mouth once daily in the morning. Take before meals. Do not crush, chew, or split. 30 tablet 11 Past Week pen needle, diabetic (BD Shiela 2nd Gen Pen Needle) 32 gauge x 5/32 needle Use 1 per injection, up to 8 times a day 200 each 3 02/08/2025 promethazine (Phenergan) 25 mg tablet Take 1 tablet (25 mg) by mouth every 6 hours if needed for nausea or vomiting. 180 tablet 1 02/08/2025 scopolamine (Transderm-Scop) 1 mg over 3 days patch [address] 1 patch over 72 hours on the skin every 3rd day. 10 patch 2 02/07/2025 insulin NPH, Isophane, (NovoLIN N FlexPen) 100 unit/mL (3 mL) pen Inject 40 units in the morning and 50 units at night. May increase to 150 units total per day during as needed. 45 mL 3 Objective Visit Vitals BP (!) 160/89 Pulse 91 Temp 37.4 C (99.3 F) Resp 18 Physical Exam Constitutional: Appearance: Normal appearance. She is obese. She is ill-appearing. HENT: Head: Normocephalic and atraumatic. Mouth/Throat: Mouth: Mucous membranes are dry. Cardiovascular: Rate and Rhythm: Normal rate and regular rhythm. Heart sounds: Normal heart sounds. No murmur heard. Pulmonary: Effort: Pulmonary effort is normal. Breath sounds: Normal breath sounds. Abdominal: Palpations: Abdomen is soft. Tenderness: There is no abdominal tenderness. Musculoskeletal: General: Normal range of motion. Cervical back: Normal range of motion. Comments: +1 pitting edema BLE Skin: General: Skin is warm and dry. Neurological: Mental Status: She is alert and oriented to person, place, and time. Psychiatric: Behavior: Behavior normal. Labs Labs in chart were reviewed. Admission on 02/08/2025 Component Date Value Ref Range Status POCT Glucose 02/08/2025 140 (H) 74 - 99 mg/dL Final Glucose 02/08/2025 104 (H) 74 - 99 mg/dL Final Sodium 02/08/2025 136 136 - 145 mmol/L Final Potassium 02/08/2025 4.1 3.5 - 5.3 mmol/L Final Chloride 02/08/2025 106 98 - 107 mmol/L Final Bicarbonate 02/08/2025 21 21 - 32 mmol/L Final Anion Gap 02/08/2025 13 10 - 20 mmol/L Final Urea Nitrogen 02/08/2025 9 6 - 23 mg/dL Final Creatinine 02/08/2025 0.51 0.50 - 1.05 mg/dL Final eGFR 02/08/2025 >90 >60 mL/min/1.73m*2 Final Calculations of estimated GFR are performed using the 2020 CKD-EPI Study Refit equation without the race variable for the IDMS-Traceable creatinine methods. https://jasn.asnjournals.org/con tent/early//ASN.[email or web address] 6330 Calcium 02/08/2025 9.4 8.6 - 10.6 mg/dL Final Albumin 02/08/2025 3.5 3.4 - 5.0 g/dL Final Alkaline Phosphatase 02/08/2025 89 33 - 110 U/L Final Total Protein 02/08/2025 6.5 6.4 - 8.2 g/dL Final AST 02/08/2025 9 9 - 39 U/L Final Bilirubin, Total 02/08/2025 0.5 0.0 - 1.2 mg/dL Final ALT 02/08/2025 7 7 - 45 U/L Final Patients treated with Sulfasalazine may generate falsely decreased results for ALT. WBC 02/08/2025 15.8 (H) 4.4 - 11.3 x10*3/uL Final nRBC 02/08/2025 0.0 0.0 - 0.0 /100 WBCs Final RBC 02/08/2025 4.23 4.00 - 5.20 x10*6/uL Final Hemoglobin 02/08/2025 11.9 (L) 12.0 - 16.0 g/dL Final Hematocrit 02/08/2025 36.6 36.0 - 46.0 % Final MCV 02/08/2025 87 80 - 100 fL Final MCH 02/08/2025 28.1 26.0 - 34.0 pg Final MCHC 02/08/2025 32.5 32.0 - 36.0 g/dL Final RDW 02/08/2025 13.2 11.5 - 14.5 % Final Platelets 02/08/2025 297 150 - 450 x10*3/uL Final Uric Acid 02/08/2025 3.8 2.3 - 6.7 mg/dL Final Venipuncture immediately after or during the administration of Metamizole may lead to falsely low results. Testing should be performed immediately prior to Metamizole dosing. LDH 02/08/2025 185 84 - 246 U/L Final Beta-Hydroxybutyrate 02/08/2025 0.15 0.02 - 0.27 mmol/L Final POCT pH, Venous 02/08/2025 7.43 7.33 - 7.43 pH Final POCT pCO2, Venous 02/08/2025 30 (L) 41 - 51 mm Hg Final POCT pO2, Venous 02/08/2025 71 (H) 35 - 45 mm Hg Final POCT SO2, Venous 02/08/2025 96 (H) 45 - 75 % Final POCT Oxy Hemoglobin, Venous 02/08/2025 93.3 (H) 45.0 - 75.0 % Final POCT Hematocrit Calculated, Venous 02/08/2025 44.0 36.0 - 46.0 % Final POCT Sodium, Venous 02/08/2025 133 (L) 136 - 145 mmol/L Final POCT Potassium, Venous 02/08/2025 3.8 3.5 - 5.3 mmol/L Final POCT Chloride, Venous 02/08/2025 106 98 - 107 mmol/L Final POCT Ionized Calicum, Venous 02/08/2025 1.24 1.10 - 1.33 mmol/L Final POCT Glucose, Venous 02/08/2025 110 (H) 74 - 99 mg/dL Final POCT Lactate, Venous 02/08/2025 1.0 0.4 - 2.0 mmol/L Final POCT Base Excess, Venous 02/08/2025 -3.2 (L) -2.0 - 3.0 mmol/L Final POCT HCO3 Calculated, Venous 02/08/2025 19.9 (L) 22.0 - 26.0 mmol/L Final POCT Hemoglobin, Venous 02/08/2025 14.8 12.0 - 16.0 g/dL Final POCT Anion Gap, Venous 02/08/2025 11.0 10.0 - 25.0 mmol/L Final Patient Temperature 02/08/2025 37.0 degrees Celsius Final FiO2 02/08/2025 21 % Final Cosigned by Clair Castro MD at 02/09/2025 1:00 AM EDT Associated attestation - Clair Castro MD - 02/09/2025 1:00 AM EDT I saw and evaluated the patient. I personally obtained the mixon and critical portions of the history and physical exam or was physically present for mixon and critical portions performed by the resident/fellow. I reviewed the resident/fellow's documentation and discussed the patient with the resident/fellow. I agree with the resident/fellow's medical decision making as documented in the note. Clair Castro MD [facility] Work Phone: 02-08-2025 History and physical note Triage H&P Dayna Tinsley is a 33 y.o. year old at 31w6d who presents to triage for: Chief Complaint Patient presents with Contractions Hypertension Assessment/Plan: gHTN --> sPEC - dx based on sustained severe range BPs requiring acute IV treatment and unrelenting headache - required treatment with labetalol 20 mg on admission, continue to cycle BPs per protocol and treat with IV antihypertensives as needed - HELLP neg, P:C pending, repeat set pending for 6 hours (ordered for 0110) - 03/14 frontal headache pending resolution with tylenol, benadryl, flexeril - will start 6g magnesium bolus followed by 2g/hr for seizure prophylaxis, continue to monitor for signs/symptoms of magnesium toxicity - start Nifed 30 daily - monitor UOP - needs scanned and consented by L&D team GDMA2 - current regimen: - POCT 140, CGM 167; pt re-calibrated CGM - BHB, VBG wnl, Gap 9 - low c/f DKA - Insulin orders per L&D team Contractions - [place]: irregular but difficult to trace pattern d/t maternal movement - suspect r/t dehydration - SVE per L&D team once admitted N/V/D - lipase pending in s/o LUQ pain - Covid/flu pending - CMP wnl History of Depression - previously on Doxepin - continue to monitor - plan SW consult Maternal Well-being - Discussed plan of care - All questions and concerns addressed IUP @ 31w6d - lab work reviewed - Cat II tracing , indeterminate with pt body habitus and movement - GBS needs to be collected on admission - BMZ per protocol - Last growth on 01/15 at 28.3 wga: 1588g (96% with AC 93%) - Polyhydramnios on 01/22 --> resolved on 01/29 US - MFM and NICU consults Contraception - declines Admit to L&D Plan and tracing reviewed with Dr. Castro. Report to Dr. Deleon and Dr. Reinoso for continuation of care. 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 Received care for previous pregnancies in [place] and reporting that she is declines release of records. Denies h/o HTN outside of , although documented elevated blood pressures outside of at ED visits in 2022. During admission 12/23-12/25, discussed with patient that there is a possibility of super-imposed chronic hypertension that is contributing to her current presentation. She did have two unsustained severe range blood pressures while admitted, both during period of stress. Given high likelihood of patient with history of chronic hypertension, will not diagnose super-imposed pre-eclampsia during this admission. Also discussed with patient that given her reported significant history of SPEC, HELLP vs eclampsia, will treat her as being diagnosed with gestational hypertension. She will require twice weekly testing until delivery, delivery at 37.0 wga if not indicated sooner and weekly PEC labs. If the patient has two sustained severe range blood pressures, she is likely meeting criteria for SPEC vs siPEC w/SF. At the time of discharge, it was deemed that she should not be initiated on an oral anti-hypertensive. [x] [id number] [x] BP cuff ordered and education provided [x] Baseline preE labs: wnl (12/2024), neg 01/08, P:C 0.27 [x] Urine P:C: 0.27 (12/2024) [] Q3 week growth US: EFW 96%, AC 93% (01/15) [] Twice weekly testing w/ alternating BPPs and NSTs [x] Delivery timing and plan: 37.0 wga Insulin controlled gestational diabetes mellitus (GDM) in third trimester ([facility]) Overview Addendum 01/29/2025 1:48 PM by Veena Duvall MD Patient presented to triage on 12/23/23 with blood glucose of 305. Reported a history of A2DM in 3 prior pregnancies. HgA1c 09/2024 was 5.4%. Patient denying diagnosis of pre gestational diabetes. HgA1c 12/2024 was 6.5%. Evaluated for DKA on admission, ruled out [] Attended [employer] [x] MFM Consult completed [] MFM 36 wk visit [] Serial growth ultrasounds starting at 28 weeks Last ultrasound: 01/15 (28wks) surveillance: [] Weekly at 32 weeks [] Twice weekly at 36 weeks Current Regimen: Regimen on discharge: NPH 20/30, Lispro 10 TID with meals (12/23) 12/29/2024: NPH 20/30 --> 30*/40* am/pm Lispro 10 with meals --> 15* with meals +SS 1unit for every 10 > 140 pre-meal check 01/01/2025 MFM visit 01/05/2025: NPH 30/40 -->40*/50* am/pm Lispro 15-20 --> 25* with meals 01/08/25 NPH 44/44 needs to space out more (stacking) -> consider transitioning to Lantus at next visit Lispro 30 with meals, 4 with snacks 01/15/25 NPH 44/44, Lispro 30-35 with meals. Reminded patient to space NPH appropriately. Increased interval growth and mild poly on US today. 01/21/2025: NPH 44/44 --> 44/50* Lispro 45 with meals --> 52* with meals +15 with snacks 01/29/2025: NPH 54/54. Lispro 52 with meals + 15 with snacks (and pt gives herself SSI as well) 31 weeks gestation of ([facility]) Overview Addendum 01/29/2025 1:52 PM by Veena Duvall MD Desired provider in labor: [] CNM [x] Physician [] Either Acceptable [] Blood Products: [] Yes, accepts [] No, needs counseling [x] Initial BMI: Could not be calculated [x] Labs: media tab [x] Cervical Cancer Screenin NILM/HPV other+ [x] Rh status: O pos [] Screen for IPV and Substance Use Risk: [] Genetic Screening (cfDNA): [x] First Trimester Anatomy Screen (11-13.6 wks): wnl 09/30 out of window [x] dated by: 13 wk US [x] Anatomy US: (19-20 wks), 01/01 [] Federal Sterilization consent signed (if indicated): [x] 1hr GCT at 24-28wks: GDMA2 started on insulin in triage [x] Rhogam (if indicated): NA [x] Surveillance (if indicated): weekly testing @32 wks, serial growths (27-32 wks, may be given up to 36 wks if initial window missed): declines all vaccines 01/08 (32-36 wks) ( to end of Nov): missed window [x] Feeding Intentions: [x] control method: declines [] GBS at 34-35 wks: [x] 39 weeks discussion of IOL vs. Expectant management: anticipate IOL at 37wga at the latest for gHTN [x] Mode of delivery ( anticipated ): Crohn disease (Multi) Overview Signed 01/01/2025 3:14 PM by Ramirez Tucker MD Patient reporting h/o Crohn's disease with bowel resection in childhood. Reporting remission x 10 year. Per documentation from P1 at [facility] colonoscopy: 05/2015 - No endoscopic findings to suggest diagnosis of Crohn's disease. - The examined portion of the ileum was normal. Biopsied. - The entire examined colon is normal on direct and retroflexion views. Biopsied. psychosis (Multi) Overview Addendum 01/20/2025 10:59 AM by Yuliya Chavira MD P2 She had auditory hallucinations for 2 days, resolved with admission at [facility]. No thoughts of harming herself or baby at the time. History of pre-eclampsia History of HELLP syndrome, currently ([facility]) Overview Signed 01/01/2025 3:27 PM by Ramirez Tucker MD Reports hx of HELLP in P5 c/b convulsions. Underwent EEG monitoring that was unremarkable for seizure activity Retained products of conception post-del w/o hemorrh but w other compl Overview Signed 01/01/2025 3:28 PM by Ramirez Tucker MD H/o retained placenta c/b endometritis 2 weeks , managed by D&C Depression affecting in third trimester, antepartum ([facility]) Overview Addendum 01/22/2025 9:53 AM by Veena Duvall MD With associated anxiety. On Doxepin daily and prn Valium. follows with Dr. Rasmussen at [facility] History of loop electrosurgical excision procedure (LEEP) of cervix affecting in second trimester Acid reflux Overview Signed 01/08/2025 2:38 PM by Paulette Romero MD BID pepsid and protonix headache in third trimester ([facility]) Overview Signed 01/15/2025 12:27 PM by Veena Duvall MD Headches starting to worsen around 25 wks til present. Assoc w/ floaters over last few days. No hx of migraines. S/p triage visit 01/14, improved with meds and normotensive so discharged home. Polyhydramnios in third trimester ([facility]) Overview Addendum 01/29/2025 1:53 PM by Veena Duvall MD SERENA 27 on 01/22 -> resolved on 01/29 US Subjective Dayna Tinsley is a 33 y.o. year old at 31w6d who presents to triage with headache, BP 179/95 at home, contractions, and uncontrollable blood sugars. Reports 5/10 frontal headache. Pt woke up with a NIELSEN and took tylenol early this am without relief. Around noon, it got worse so she took a magnesium tablet but no relief. Reports intermittent floaters but no scotoma, RUQ pain, chest pain, or unusual shortness of breath. Pt has some shortness of breath with activity but not at rest. Reports Bps normally 120s/70s-80s but elevated today. Having 4-5 contractions per hr today. Denies vaginal bleeding, loss of fluid, vaginal symptoms, and reports good FM prior to the start of the contractions. Now it is slightly decreased. Reports diarrhea for the past three days with vomiting episodes x 2 today. Was able to eat at 1530 and has not vomited since. Reports some LUQ pain. Denies fever, chills. Reports blood sugars per CGM ranging from 50-300 today. Reports she adjusted insulin dosing based on blood sugars around 240 earlier. Insulin today includes: NPH 60 units at 0536 and another 10 units at 1419. She has also had Lispro 80 units this am and another 40 units at 1419. She adjusted her dosing to try to avoid a trip to triage. OB History 15 Para 6 Term 0 6 AB 8 Living 5 SAB 8 IAB Ectopic Multiple Live Births 5 Past Surgical History: Procedure Laterality Date BOWEL RESECTION CERVICAL BIOPSY W/ LOOP ELECTRODE EXCISION CHOLECYSTECTOMY DILATION AND CURETTAGE OF UTERUS s/p RPOC Social History Socioeconomic History Marital status: Spouse name: Not on file Number of children: Not on file Years of education: Not on file Highest education level: Not on file Occupational History Not on file Tobacco Use Smoking status: Former Types: Cigarettes Smokeless tobacco: Not on file Vaping Use Vaping status: Never Used Substance and Sexual Activity Alcohol use: Never Drug use: Never Sexual activity: Not on file Other Topics Concern Not on file Social History Narrative Not on file Social Drivers of Health Financial Resource Strain: Medium Risk (12/23/2024) Overall Financial Resource Strain (CARDIA) Difficulty of Paying Living Expenses: Somewhat hard Food Insecurity: No Food Insecurity (12/23/2024) Hunger Vital Sign Worried About Running Out of Food in the Last Year: Never true Ran Out of Food in the Last Year: Never true Transportation Needs: No Transportation Needs (12/23/2024) PRAPARE - Transportation Lack of Transportation (Medical): No Lack of Transportation (Non-Medical): No Physical Activity: Not on file Stress: Not on file Social Connections: Not on file Intimate Partner Violence: Not At Risk (12/23/2024) Humiliation, Afraid, Rape, and Kick questionnaire Fear of Current or Ex-Partner: No Emotionally Abused: No Physically Abused: No Sexually Abused: No Allergies Allergen Reactions Solu-Medrol Mix-O-Vial Anaphylaxis Versed [Midazolam] Anxiety Reglan [Metoclopramide Hcl] Other Extreme restlessness Medications Prior to Admission Medication Sig Dispense Refill Last Dose/Taking alcohol swabs pads, medicated Use 1, up to 5 times a day 200 each 3 02/08/2025 blood sugar diagnostic (Blood Glucose Test) strip Use 1 strip 4-6 times a day during 150 each 3 02/08/2025 blood-glucose meter misc Use for testing blood sugar fasting and 1 hour after each meal. 4-6 times per day during 1 each 0 02/08/2025 blood-glucose sensor (Dexcom G7 Sensor) device Use 1 sensor and change every 10 days 3 each 0 02/08/2025 diazePAM (Valium) 5 mg tablet Take 1 tablet (5 mg) by mouth every 8 hours if needed for anxiety. Past Month famotidine (Pepcid) 10 mg tablet Take 1 tablet (10 mg) by mouth 2 times a day. 60 tablet 2 02/08/2025 insulin lispro (HumaLOG KwikPen Insulin) 100 unit/mL pen Inject 25 units with each meal. May increase to 150 units total per day during as needed. 45 mL 3 02/08/2025 lancets 33 gauge misc Use 1 lancet 4-6 times per day during 200 each 3 02/08/2025 magnesium oxide (Mag-Ox) 400 mg (241.3 mg magnesium) tablet Take 1 tablet (400 mg) by mouth once daily. Take a bedtime 30 tablet 11 02/08/2025 magnesium oxide (Mag-Ox) 400 mg (241.3 mg magnesium) tablet Take 0.5 tablets (200 mg) by mouth 2 times a day as needed (Headache). 30 tablet 0 02/08/2025 pantoprazole (Protonix) 40 mg EC tablet Take 1 tablet (40 mg) by mouth once daily in the morning. Take before meals. Do not crush, chew, or split. 30 tablet 11 Past Week pen needle, diabetic (BD Shiela 2nd Gen Pen Needle) 32 gauge x needle Use 1 per injection, up to 8 times a day 200 each 3 02/08/2025 promethazine (Phenergan) 25 mg tablet Take 1 tablet (25 mg) by mouth every 6 hours if needed for nausea or vomiting. 180 tablet 1 02/08/2025 scopolamine (Transderm-Scop) 1 mg over 3 days patch [address] 1 patch over 72 hours on the skin every 3rd day. 10 patch 2 02/07/2025 insulin NPH, Isophane, (NovoLIN N FlexPen) 100 unit/mL (3 mL) pen Inject 40 units in the morning and 50 units at night. May increase to 150 units total per day during as needed. 45 mL 3 Objective Visit Vitals BP (!) 160/89 Pulse 91 Temp 37.4 C (99.3 F) Resp 18 Physical Exam Constitutional: Appearance: Normal appearance. She is obese. She is ill-appearing. HENT: Head: Normocephalic and atraumatic. Mouth/Throat: Mouth: Mucous membranes are dry. Cardiovascular: Rate and Rhythm: Normal rate and regular rhythm. Heart sounds: Normal heart sounds. No murmur heard. Pulmonary: Effort: Pulmonary effort is normal. Breath sounds: Normal breath sounds. Abdominal: Palpations: Abdomen is soft. Tenderness: There is no abdominal tenderness. Musculoskeletal: General: Normal range of motion. Cervical back: Normal range of motion. Comments: +1 pitting edema BLE Skin: General: Skin is warm and dry. Neurological: Mental Status: She is alert and oriented to person, place, and time. Psychiatric: Behavior: Behavior normal. Labs Labs in chart were reviewed. Admission on 02/08/2025 Component Date Value Ref Range Status POCT Glucose 02/08/2025 140 (H) 74 - 99 mg/dL Final Glucose 02/08/2025 104 (H) 74 - 99 mg/dL Final Sodium 02/08/2025 136 136 - 145 mmol/L Final Potassium 02/08/2025 4.1 3.5 - 5.3 mmol/L Final Chloride 02/08/2025 106 98 - 107 mmol/L Final Bicarbonate 02/08/2025 21 21 - 32 mmol/L Final Anion Gap 02/08/2025 13 10 - 20 mmol/L Final Urea Nitrogen 02/08/2025 9 6 - 23 mg/dL Final Creatinine 02/08/2025 0.51 0.50 - 1.05 mg/dL Final eGFR 02/08/2025 >90 >60 mL/min/1.73m*2 Final Calculations of estimated GFR are performed using the 2020 CKD-EPI Study Refit equation without the race variable for the IDMS-Traceable creatinine methods. https://jasn.asnjournals.org/con tent/early//ASN.199195 5396 Calcium 02/08/2025 9.4 8.6 - 10.6 mg/dL Final Albumin 02/08/2025 3.5 3.4 - 5.0 g/dL Final Alkaline Phosphatase 02/08/2025 89 33 - 110 U/L Final Total Protein 02/08/2025 6.5 6.4 - 8.2 g/dL Final AST 02/08/2025 9 9 - 39 U/L Final Bilirubin, Total 02/08/2025 0.5 0.0 - 1.2 mg/dL Final ALT 02/08/2025 7 7 - 45 U/L Final Patients treated with Sulfasalazine may generate falsely decreased results for ALT. WBC 02/08/2025 15.8 (H) 4.4 - 11.3 x10*3/uL Final nRBC 02/08/2025 0.0 0.0 - 0.0 /100 WBCs Final RBC 02/08/2025 4.23 4.00 - 5.20 x10*6/uL Final Hemoglobin 02/08/2025 11.9 (L) 12.0 - 16.0 g/dL Final Hematocrit 02/08/2025 36.6 36.0 - 46.0 % Final MCV 02/08/2025 87 80 - 100 fL Final MCH 02/08/2025 28.1 26.0 - 34.0 pg Final MCHC 02/08/2025 32.5 32.0 - 36.0 g/dL Final RDW 02/08/2025 13.2 11.5 - 14.5 % Final Platelets 02/08/2025 297 150 - 450 x10*3/uL Final Uric Acid 02/08/2025 3.8 2.3 - 6.7 mg/dL Final Venipuncture immediately after or during the administration of Metamizole may lead to falsely low results. Testing should be performed immediately prior to Metamizole dosing. LDH 02/08/2025 185 84 - 246 U/L Final Beta-Hydroxybutyrate 02/08/2025 0.15 0.02 - 0.27 mmol/L Final POCT pH, Venous 02/08/2025 7.43 7.33 - 7.43 pH Final POCT pCO2, Venous 02/08/2025 30 (L) 41 - 51 mm Hg Final POCT pO2, Venous 02/08/2025 71 (H) 35 - 45 mm Hg Final POCT SO2, Venous 02/08/2025 96 (H) 45 - 75 % Final POCT Oxy Hemoglobin, Venous 02/08/2025 93.3 (H) 45.0 - 75.0 % Final POCT Hematocrit Calculated, Venous 02/08/2025 44.0 36.0 - 46.0 % Final POCT Sodium, Venous 02/08/2025 133 (L) 136 - 145 mmol/L Final POCT Potassium, Venous 02/08/2025 3.8 3.5 - 5.3 mmol/L Final POCT Chloride, Venous 02/08/2025 106 98 - 107 mmol/L Final POCT Ionized Calicum, Venous 02/08/2025 1.24 1.10 - 1.33 mmol/L Final POCT Glucose, Venous 02/08/2025 110 (H) 74 - 99 mg/dL Final POCT Lactate, Venous 02/08/2025 1.0 0.4 - 2.0 mmol/L Final POCT Base Excess, Venous 02/08/2025 -3.2 (L) -2.0 - 3.0 mmol/L Final POCT HCO3 Calculated, Venous 02/08/2025 19.9 (L) 22.0 - 26.0 mmol/L Final POCT Hemoglobin, Venous 02/08/2025 14.8 12.0 - 16.0 g/dL Final POCT Anion Gap, Venous 02/08/2025 11.0 10.0 - 25.0 mmol/L Final Patient Temperature 02/08/2025 37.0 degrees Celsius Final FiO2 02/08/2025 21 % Final Cosigned by Clair Castro MD at 02/09/2025 1:00 AM EDT Associated attestation - Clair Castro MD - 02/09/2025 1:00 AM EDT I saw and evaluated the patient. I personally obtained the mixon and critical portions of the history and physical exam or was physically present for mixon and critical portions performed by the resident/fellow. I reviewed the resident/fellow's documentation and discussed the patient with the resident/fellow. I agree with the resident/fellow's medical decision making as documented in the note. Clair Castro MD documented in this encounter [facility] Work Phone: 12-25-2024 Plan of care note Problem: Antepartum Goal: Maintain as long as maternal and/or condition is stable Outcome: Met Goal: Avoid/minimize constipation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 Medical History No past medical history on file. Past Surgical History No past surgical history on file. Social History Social History Tobacco Use Smoking status: Not on file Smokeless tobacco: Not on file Substance Use Topics Alcohol use: Not on file Substance and Sexual Activity Drug Use Not on file Social History Socioeconomic History Marital status: Spouse name: Not on file Number of children: Not on file Years of education: Not on file Highest education level: Not on file Occupational History Not on file Tobacco Use Smoking status: Not on file Smokeless tobacco: Not on file Substance and Sexual Activity Alcohol use: Not on file Drug use: Not on file Sexual activity: Not on file Other Topics Concern Not on file Social History Narrative Not on file Social Drivers of Health Financial Resource Strain: Not on file Food Insecurity: Not on file Transportation Needs: Not on file Physical Activity: Not on file Stress: Not on file Social Connections: Not on file Intimate Partner Violence: Not on file Allergies Solu-medrol mix-o-vial and Versed [midazolam] Medications Medications Prior to Admission Medication Sig Dispense Refill Last Dose/Taking diazePAM (Valium) 5 mg tablet Take 1 tablet (5 mg) by mouth every 8 hours if needed for anxiety. Past Month aspirin 81 mg EC tablet Take 1 tablet (81 mg) by mouth once daily. famotidine (Pepcid) 10 mg tablet Take 1 tablet (10 mg) by mouth 2 times a day as needed for heartburn. Objective Last Vitals Temp Pulse Resp BP MAP O2 Sat 37.2 C (99 F) 89 16 135/77 97 % Physical Exam Constitutional: Well nourished, in no acute distress, alert, pleasant and cooperative Head/Neck: Normocephalic, atraumatic, Neck: Supple, no lymphadenopathy. Eyes: PERRLA, Sclera are white, conjunctiva is pink. Cardiopulmonary: warm and well perfused, breathing comfortably on room air,S1, S2, RRR Respiratory/Thorax: Normal respiratory effort on RA, clear to auscultation bilaterally, no wheezes or crackles. Abdomen: Gravid, non-tender, soft on palpation, no palpable contractions, x2 post operative markings on abdomen from prior surgeries Back: Spine normal without deformity or tenderness, no CVA tenderness Neurological: alert, oriented, normal speech, no focal findings or movement disorder noted. Psychological: Appropriate mood and affect. Awake and alert; oriented to person, place, and time. Extremities: Symmetric bilaterally no deformities, cyanosis, edema or varicosities, peripheral pulses Intact Skin: warm, dry, no lesions Monitoring Non-Stress Test Baseline Heart Rate for Non-Stress Test: 135 BPM Variability in Waveform for Non-Stress Test: Moderate Accelerations in Non-Stress Test: Yes, greater than/equal to 10 bpm, lasting at least 10 seconds Decelerations in Non-Stress Test: None Contractions in Non-Stress Test: Not present Interpretation of Non-Stress Test Interpretation of Non-Stress Test: Reactive, Appropriate for gestational age Bedside ultrasound: No Lab Review Admission on 12/23/2024 Component Date Value Ref Range Status POCT Glucose 12/23/2024 303 (H) 74 - 99 mg/dL Final POCT Glucose 12/23/2024 301 (H) 74 - 99 mg/dL Final Color, UA 12/23/2024 Light-Yellow Final Clarity, UA 12/23/2024 Clear Final Glucose, UA 12/23/2024 3+ Final Bilirubin, UA 12/23/2024 NEGATIVE Final Ketones, UA 12/23/2024 Negative Final Spec Grav, UA 12/23/2024 1.015 Final Blood, UA 12/23/2024 Negative Final pH, UA 12/23/2024 5.5 Final Protein, UA 12/23/2024 NEGATIVE Final Urobilinogen, UA 12/23/2024 0.2 Final Leukocytes, UA 12/23/2024 NEGATIVE Final Nitrite, UA 12/23/2024 NEGATIVE Final Appearance, Fluid 12/23/2024 Clear Final WBC 12/23/2024 14.6 (H) 4.4 - 11.3 x10*3/uL Final nRBC 12/23/2024 0.0 0.0 - 0.0 /100 WBCs Final RBC 12/23/2024 4.08 4.00 - 5.20 x10*6/uL Final Hemoglobin 12/23/2024 12.1 12.0 - 16.0 g/dL Final Hematocrit 12/23/2024 35.7 (L) 36.0 - 46.0 % Final MCV 12/23/2024 88 80 - 100 fL Final MCH 12/23/2024 29.7 26.0 - 34.0 pg Final MCHC 12/23/2024 33.9 32.0 - 36.0 g/dL Final RDW 12/23/2024 13.3 11.5 - 14.5 % Final Platelets 12/23/2024 207 150 - 450 x10*3/uL Final Hemoglobin A1C 12/23/2024 6.5 (H) See comment % Final Estimated Average Glucose 12/23/2024 140 Not Established mg/dL Final labs reviewed, not remarkable. Hemoglobin Date Value Ref Range Status 12/23/2024 12.1 12.0 - 16.0 g/dL Final Hematocrit Date Value Ref Range Status 12/23/2024 35.7 (L) 36.0 - 46.0 % Final Cosigned by Sneha Boyd MD at 12/23/2024 8:28 PM EST Associated attestation - Sneha Boyd MD - 12/23/2024 8:28 PM EST I saw and evaluated the patient. I personally obtained the mixon and critical portions of the history and physical exam or was physically present for mixon and critical portions performed by the resident/fellow. I reviewed the resident/fellow's documentation and discussed the patient with the resident/fellow. I agree with the resident/fellow's medical decision making as documented in the note. documented in this encounter [facility] Work Phone: 11-25-2024 History of Present illness Narrative Pt states she feels baby moving documented in this encounter [facility] 09-30-2024 Note [facility] CONSULTATION Referring Provider Hemal Salinas MD [id number] [address] ASSESSMENT AND RECOMMENDATIONS The patient comes today for discussion of the items below. I will note, collecting medical and obstetrical history is challenging during this case secondary to patient's desire to obscure portions of her medical history. We have provided the best counseling possible given the available information shared by the patient. Hx PreE/HELLP Etiology of preeclampsia: We discussed the fact that the etiology of preeclampsia has yet to be fully defined. There appears to be some element of abnormal placentation (placenta not implanting normally into the uterus), resulting in a state of chronic localized hypoxia and inflammation. Since the full etiology has not been identified, we have not yet been able to prevent or cure the disease. Recurrence: In women with severe preeclampsia, there is a broad range of when it comes to predicting incidence in subsequent pregnancies. Today, we quoted a range of 20-45%, recognizing it could be as high as 65%. We did discuss options for prevention, which are minimal. Unfortunately, since preeclampsia is likely a multi-factorial process, we do not have a specific targeted therapy. We did discuss use of aspirin as a preventative measure that could modestly reduce risk. Realistically, we discussed that the likely effect would be a less severe form at perhaps a slightly higher gestational age. Hx gDM The patietn reports that she has had diabetes in prior pregnancies. In this curerently 5.4%, therefore lower-risk for diabetes at this moment in the . Patient expresses a wish for glucose monitoring at 24 weeks as she is unable to tolerate the GCT. This seems reasonable and I hae told her to reach out to her primary provider for the monitoring. This can be either finger-sticks or continuous glucose monitoring as the patient desires. Hx It is uncertain whether the patient truly has history. From the limited history that we do have, the patient has given after 34 weeks for the majority of her pregnancies. For the 33 week delivery, it is possible that it may be related to pre-eclampsia diagnosis and not true spontaneous . I would recommend cervical length screening once in this at the time of her anatomy ultrasound given the ambiguity of this history. Crohn's Disease The patient reports that her Crohn's is in remission at this time. She reports that her physician is in [place], and she has requested but not yet had biopsy for same. She is not currently on medications for control of her Crohn's. We generally discussed inflammatory bowel disease in today. Inflammatory bowel disease (IBD) affects approximately 1.3% of the [place] population, and successful is common. That said, there are risks to the maternal dyad, especially if disease is poorly controlled at time of conception. If poorly controlled at time of conception, relapse and worsening of disease is common, affecting 70% of pregnancies. If well controlled, the risk of relapse during approaches that of the general IBD population, with 30% of people having a relapse, and most relapses occurring in the first trimester. Interestingly, there is a slightly increased risk of relapse with UC compred to Crohn's disease. Also notable, people who have had a may be protective in the terminal clerk, with lower relapse rates up to ten years following compared with rates prior to . As parity increases, the risk of surgery to treat IBD also decreases, but this may be more of a function that healthier people are able to have more pregnancies. The risk of active disease should be weighed against the risk of any medicatons taken during to maintain remission. Inflammatory Bowel Disease Medications during patients with IBD should stay on the medications that are maintaining them in remission. Stopping the medications can induce a relapse or flare of disease. The Table below shows the safety of various IBD medications during . Safe to Use Probably Safe but Limited Data Contraindicated Sulfasalazine 5-Aminosalicylates Corticosteroids Azathioprine 6-Mercaptopurine Cyclosporine Metronidazole Infliximab Loperamide Methotrexate Diphenoxylate Antibiotics Metronidazole and ciprofloxacin are occasionally used in the management of patients with Crohn disease. Typically, we prefer metronidazole (short course) over ciprofloxacin as sciprofloxacin use in /children as it affects growing cartilage and can cause arthropathy, although studies have demonstrated similar results to controls. Sulfasalazine and 5-Aminosalicylate Drugs Sulfasalazine and 5-aminosalicylate drugs are often used (more content not included)... [facility] 02-22-2024 Discharge summary Note Date/Time February 22, 2024 3:15pm [facility] Medical Records Department [address] [place] [address] Emergency Department Summary 02/22/24 MR#: [id number] Acct: [id number] Name: DAYNA STEWARD Rep #:[id number] : 1991 32 From: Nito Nur MD PCP: ECHO Rosenberg Status:REG ER Location: ED HPI HPI - GI History of Present Illness Chief Complaint: Abd Pain Diarrhea/Melena/Hematochezia GI Symptom: Positive for Diarrhea Narrative Narrative: 32-year-old female past medical history of Crohn disease but states she has not been on meds for 8 or 9 years. She states the medication she had been on works so well that now they treat her just like irritable bowel syndrome. She presents with multiple somatic complaints including diarrhea with blood streaks,nausea but no vomiting, generalized weakness. She states that her potassium is usually low. Over the last few days she has been on the toilet after she gets home from work for a few hours needing that she has 7-8 episodes of diarrhea. Past surgical history to the abdomen includes colon resection, cholecystectomy. She states she had a stool sample, but her blood pressure has been high for me. She also relates history that she has had C. difficile in the past, but isnot feeling like that because she does not have burning in her rectum. [facility] Medical History (Updated 02/22/24 @ 17:23 by Nito Nur MD) Crohn's disease Endometriosis Home Medications cyclobenzaprine 5 mg tablet 5 mg PO Q8H PRN muscle spasm 09/05/23 [History Last Taken Unknown] diazepam 10 mg tablet 10 mg PO Q8H PRN muscle spasm 09/05/23 [History Last Taken Unknown] doxepin 50 mg capsule 50 mg PO DAILY 09/05/23 [History Last Taken Unknown] doxepin 6 mg tablet 6 mg PO DAILY 09/05/23 [History Last Taken Unknown] modafinil 200 mg tablet 200 mg PO DAILY 09/05/23 [History Last Taken Unknown] promethazine 25 mg tablet 25 mg PO TID PRN nausea and vomiting #14 tabs 10/25/23[Rx Last Taken Unknown] cyclobenzaprine 10 mg tablet 10 mg PO TID PRN Muscle Spasm #20 TABLETS 11/17/23 [Rx Last Taken Unknown] hydrocodone-acetaminophen 5-325mg 5mg-325mg 1 tab PO Q4H PRN PRN Pain 2 days #10TABLETS 11/17/23 [Rx Last Taken Unknown] naproxen 500 mg tablet (Naprosyn) 500 mg PO BID PRN pain #20 tabs 11/17/23 [Rx Last Taken Unknown] hydrocodone-acetaminophen 5-325mg 5mg-325mg 1 tab PO Q4H PRN PRN Pain 2 days #10TABLETS 12/05/23 [Rx Last Taken Unknown] ondansetron 4 mg disintegrating tablet 4 mg PO Q8H PRN PRN Nausea #10 tabs 12/05/23 [Rx Last Taken Unknown] ondansetron 4 mg disintegrating tablet 4 mg PO Q8H PRN PRN Nausea #10 tabs 02/22/24 [Rx Last Taken Unknown] prednisone 20 mg tablet 40 mg (2 x 20 mg) PO DAILY 7 days #14 TABLETS 02/22/24 [Rx Last Taken Unknown] Allergy/AdvReac Type Severity Reaction Status Date / Time benzocaine [From Cetacaine] Allergy Anaphylaxis Verified 02/22/24 14:08 butamben [From Cetacaine] Allergy Anaphylaxis Verified 02/22/24 14:08 methylprednisolone sodium Allergy Anaphylaxis Verified 02/22/24 14:08 succinate [From Solu-Medrol] metoclopramide [From Reglan] Allergy Other Verified 02/22/24 14:08 tetracaine [From Cetacaine] Allergy Anaphylaxis Verified 02/22/24 14:08 midazolam HCl [From Versed] AdvReac Other Verified 02/22/24 14:08 Social History Smoking Status: Current some day smoker tobacco type: cigarettes ROS ROS ED ROS Narrative Constitutional: No fever, no chills. Generalized weakness. Fluctuating blood pressure. HEENT: No sore throat. No neck pain. No loss of vision. No rhinorrhea. Cardiovascular: No chest pain. No palpitations. No pedal edema. Respiratory: No cough, no shortness of breath. Abdominal: Positive abdominal pain. Positive nausea. No vomiting. Positive diarrhea Genitourinary: No dysuria. No hematuria. Musculoskeletal: No myalgias. No arthralgias. Neurologic: No headaches. No dizziness. No lightheadedness. Skin: No rash. No change in color. Psychiatric: No depression. No anxiety. EXAM Physical Exam Narrative Exam Narrative: Afebrile. Vital signs noted. HEENT: Normocephalic. Atraumatic. PERRL, EOMI. Neck soft and supple. No pointtenderness or step off. Cardiovascular: Regular rate and rhythm. No murmurs, rubs, or gallops appreciated. Respiratory: No tachypnea. Lungs clear to auscultation bilaterally. Gastrointestinal: Abdomen soft, nontender, with normoactive bowel sounds. No rebound or guarding. Neurological: Awake. Alert. Nonfocal, nonlateralizing. Skin: No rash. Normal color. No pallor. Musculoskeletal: No pedal edema. Full range of motion extremities. Const Vital Signs: 02/22/24 14:10 02/22/24 14:10 02/22/24 15:47 Temperature 97.2 F L 97.2 F L Temperature Source Temporal Temporal Pulse Rate 98 98 78 Respiratory Rate 18 18 16 Blood Pressure 145/94 H 145/94 H 121/96 H Blood Pressure Mean 111 111 104 Pulse Ox 100 100 97 Oxygen Delivery Method Room Air Room Air Room Air 02/22/24 15:49 Temperature 97.3 F L Temperature Source Temporal Pulse Rate 79 Respiratory Rate 16 Blood Pressure 121/96 H Blood Pressure Mean 104 Pulse Ox 97 Oxygen Delivery Method Room Air MDM MDM MDM Narrative Medical decision making narrative: In the differential diagnosis is Crohn exacerbation versus colitis versus gastroenteritis. I reviewed her prior records and she has been seen in the pastfor nonspecific abdominal pain. She tolerated morphine in the past and sometimes Zofran, and once requested Phenergan instead. Comprehensive workup was pursued. With concern for dehydration electrolyte panel will be checked as well. She will be bolused normal saline 1 L intravenously. I reviewed her laboratory work and she has slightly elevated white count of 12.0hemoglobin normal at 13.7, hematocrit 41.4, platelet count normal at 280. Potassium is low at 2.9 which was replaced orally with chloride 110. Glucose isappropriately elevated at 85. Magnesium is normal at 2.1. Urinalysis is negative for infection. Serum is negative. LFTs are grossly unremarkable. CT shows certain areas with certain portions of the descending and sigmoid colon which may be consistent with nonspecific colitis. Given her history of Crohn disease, I do feel it is probably more of a nonspecific colitis. I do not feel that antibiotics are indicated. Patient requested more pain medication and nausea medication. She will be givenZofran, but I discussed with her that I do not feel narcotic pain medication is indicated any further and treating what is most likely Crohn's colitis, and thatparker would not get a prescription for narcotics. She requested Benadryl which has helped her in the past so she was administered 25 mg intravenously. I also discussed the use of prednisone with her in the burst form to help with her colitis. She is receptive to this, she was also given a note for work for todayand tomorrow, and she also received a prescription for 10 Zofran ODT's. At thispoint in time, I do not feel that she requires supplemental potassium but she should get this rechecked by her primary care provider. I also referred her to gastroenterology as an outpatient. I feel she can be discharged safely home with follow-up. Return instructions were reviewed. Disposition is discharged home in stable condition. History & Record Review Discussion w/independent historian: Patient Additional record(s) reviewed:: Prior ED visit and Prior labs Lab Data Attestation: I reviewed the patient's lab results. Labs: Laboratory Results - last 24 hr 02/22/24 02/22/24 13:35 16:45 WBC 12.0 H RBC 4.75 Hgb 13.7 Hct 41.4 MCV 87.2 MCH 28.8 MCHC 33.1 RDW Std Deviation 40.6 RDW Coeff of Silke 13.0 Plt Count 280 MPV 10.3 Immature Gran % (Auto) 0.400 Neut % (Auto) 65.4 Lymph % (Auto) 27.5 [place] % (Auto) 6.2 Eos % (Auto) 0.0 Baso % (Auto) 0.5 Absolute Neuts (auto) 7.9 H Absolute Lymphs (auto) 3.30 Nucleated RBC % 0 Sodium 140 Potassium 2.9 L Chloride 110 H Carbon Dioxide 24.0 Anion Gap 6 BUN 9 Creatinine 0.86 Estim Creat Clear Calc 114.66 Est GFR (MDRD) Af Amer 97 Est GFR (MDRD) Non-Af 81 BUN/Creatinine Ratio 10.5 Glucose 85 Calcium 9.2 Magnesium 2.1 Total Bilirubin 0.80 AST 21 ALT 19 Alkaline Phosphatase 67 Total Protein 8.0 Albumin 4.1 Globulin 3.9 Albumin/Globulin Ratio 1.1 Serum , Qual NEGATIVE Urine Color Yellow Urine Clarity Clear Urine pH 5.0 Ur Specific [place] 1.020 Urine Protein 30 H Urine Glucose (UA) Normal Urine Ketones Negative Urine Occult Blood 10 H Urine Nitrite Negative Urine Bilirubin Negative Urine Urobilinogen Normal Ur Leukocyte Esterase 100 H Urine RBC 0-5 SEEN Urine WBC 0-5 SEEN Ur Squamous Epith Cells 0-5 SEEN Urine Bacteria RARE Urine Mucus RARE Radiography Diagnostic Testing: Clinical Impression(s) from Imaging Studies Abdomen/Pelvis CT 02/22/24 15:11 IMPRESSION: Mild nonspecific gastric distention with retained secretions. No evidence for small bowel obstruction Petrous ahaustral appearance to portions of the descending and sigmoid colon which may be consistent with nonspecific colitis. Electronically Signed: Aly Pendleton MD at 16:40 EDT , Discharge Plan Triage Chief Complaint: Abd Pain ED Provider: Nito Nur Dx/Rx/DC Orders Clinical Impression: Diarrhea, Abdominal pain, Crohn's colitis, Hypokalemia Instructions: ED Crohn's Disease, ED Hypokalemia Prescriptions: New ondansetron 4 mg tablet,disintegrating 4 mg PO Q8H PRN PRN (Reason: Nausea) Qty: 10 0RF prednisone 20 mg tablet 40 mg PO DAILY 7 Days Qty: 14 0RF No Action promethazine 25 mg tablet 25 mg PO TID PRN (Reason: nausea and vomiting) Qty: 14 0RF hydrocodone-acetaminophen [hydrocodone-acetaminophen] 5-325 mg tablet 1 tab PO Q4H PRN PRN (Reason: Pain) 2 Days Qty: 10 0RF ondansetron [ondansetron] 4 mg tablet,disintegrating 4 mg PO Q8H PRN PRN (Reason: Nausea) Qty: 10 0RF diazepam 10 mg tablet 10 mg PO Q8H PRN (Reason: muscle spasm) modafinil 200 mg tablet 200 mg PO DAILY doxepin 50 mg capsule 50 mg PO DAILY doxepin 6 mg tablet 6 mg PO DAILY cyclobenzaprine 5 mg tablet 5 mg PO Q8H PRN (Reason: muscle spasm) cyclobenzaprine [cyclobenzaprine] 10 mg tablet 10 mg PO TID PRN (Reason: Muscle Spasm) Qty: 20 0RF hydrocodone-acetaminophen [hydrocodone-acetaminophen] 5-325 mg tablet 1 tab PO Q4H PRN PRN (Reason: Pain) 2 Days Qty: 10 0RF naproxen [Naprosyn] 500 mg tablet 500 mg PO BID PRN (Reason: pain) Qty: 20 0RF Stand Alone Forms: ED Work / School Excuse Primary Care Provider: Fahad Champagne Referrals: Friend,Juan Alberto, DO [Med Staff - Active Staff] - As soon as possible Fahad Champagne, SUPERVISOR COUNSELING [employer] GUIDANCE-C [Primary Care Provider] - As soon as possible Disposition Disposition: Home, Self Care What to do if you have Problems For any increased pain, shortness of breath, bleeding, nausea or vomiting, chestpain, or any unexpected problems, contact your Primary Care Provider. Call [facility] ([phone]) or report to the closest Emergency Room. Call 911 if necessary. 02/22/24 1727 <Electronically signed by Nito Nur MD> Cosigner Signature (if applicable): CC: ECHO Champagne ~ Signed [facility] Work Phone: 1(809) 643-477412-21-2023 Discharge summary Author Garrett Brooks [facility] October 25, 2023 8:13pm Note Date/Time October 25, 2023 4:21pm [facility] Medical Records Department [address] [place] [address] Emergency Department Summary 10/25/23 MR#: [id number] Acct: [id number] Name: DAYNA STEWARD Rep #:[id number] : 1990 32 From: Garrett Brooks DO PCP: [facility] St atus:REG ER Location: ED HPI HPI - GI History of Present Illness Chief Complaint: Nausea/Vomiting Narrative Narrative: 32-year-old female presenting with constipation. She states has been constipated since Sunday. She is a long history of Crohn's disease since she was 6 years old. She states that she had a partial colectomy and another surgery on her bowel distantly as a child. Patient states she used to live in [place] but when to her who was in the she lived in [place]. She got her care from for the . Apparently she has seen somebody at [facility] in the past in [place]. She recently moved back to [place] due to what she reports is of relationship. She states he does not have health insurance that she is currently going to [employer] and has been managing her care for last few months. She is not referred to GI recently. She did states he has nothad a Crohn's flare in years. She has not been on any biologic in years. Patient states she is also not been on any prednisone for a long time. Denies any black or bloody stools. She is vomiting. She reports history of bowel obstructions in the past. [facility] Medical History Crohn's disease Home Medications cyclobenzaprine 5 mg tablet 5 mg PO Q8H PRN muscle spasm 09/05/23 [History Last Taken Unknown] diazepam 10 mg tablet 10 mg PO Q8H PRN muscle spasm 09/05/23 [History Last Taken Unknown] doxepin 50 mg capsule 50 mg PO DAILY 09/05/23 [History Last Taken Unknown] doxepin 6 mg tablet 6 mg PO DAILY 09/05/23 [History Last Taken Unknown] modafinil 200 mg tablet 200 mg PO DAILY 09/05/23 [History Last Taken Unknown] promethazine 25 mg tablet 25 mg PO TID PRN nausea and vomiting #14 tabs 10/25/23[Rx Last Taken Unknown] Allergy/AdvReac Type Severity Reaction Status Date / Time benzocaine [From Cetacaine] Allergy Anaphylaxis Verified 10/25/23 15:00 butamben [From Cetacaine] Allergy Anaphylaxis Verified 10/25/23 15:00 methylprednisolone sodium Allergy Anaphylaxis Verified 10/25/23 15:00 succinate [From Solu-Medrol] tetracaine [From Cetacaine] Allergy Anaphylaxis Verified 10/25/23 15:00 midazolam HCl [From Versed] AdvReac Other Verified 10/25/23 15:00 Social History Smoking Status: Current some day smoker tobacco type: cigarettes ROS ROS ED Constitutional Constitutional ED: Denies chills, fever(s) or sweats Eyes Eyes: Denies blurry vision or change in vision ENT ENT ED: Denies ear pain or sore throat Cardiovascular Cardiovascular: Denies chest pain, palpitations or racing heartbeat Respiratory/Chest Respiratory/Chest: Denies cough, dyspnea or sputum Gastrointestinal Gastrointestinal: Reports abdominal pain, nausea and vomiting; Denies constipation or diarrhea Genitourinary Genitourinary ED: Denies dysuria, hematuria or urinary frequency Musculoskeletal Musculoskeletal: Denies arthralgias, myalgias or neck pain Integumentary Denies abscess, Abrasions or rash Neurologic Neurologic: Denies headache(s), paresthesias or weakness Psychiatric Psychiatric: Denies anxiety, depression, suicidal ideation or suicidal thoughts Endocrine Endocrinology: Denies polydipsia or polyuria EXAM Physical Exam Const Vital Signs: 10/25/23 14:57 Temperature 97.7 F L Temperature Source Temporal Pulse Rate 81 Respiratory Rate 16 Blood Pressure 147/85 H Blood Pressure Mean 105 Pulse Ox 100 Oxygen Delivery Method Room Air Positive well nourished General Appearance ED: NAD; Negative for pallor HEENT Reports moist mucous membranes normocephalic and atraumatic Eyes PERRL and EOMs intact bilaterally Neck no lymphadenopathy Resp normal respiratory effort Auscultation: Negative for rales, rhonchi or wheezes Cardio regular rate and regular rhythm GI Palpation: soft; Negative for guarding, rigid, hepatomegaly, splenomegaly or hernia Extremity full ROM Neuro CN's II-XII intact bilaterally, moves all extremities and no sensory deficits noted Sensorium / Orientation: alert Motor Exam: strength 5/5 throughout Psych mental status grossly normal and thought process normal Skin no wounds General Skin Exam: Negative for jaundice or pallor MDM MDM MDM Narrative Medical decision making narrative: 2-year-old female with history of Crohn's disease complaining of constipation. No fevers or chills. She does report nausea and vomiting. Last bowel movement was 4 days ago. Patient does report history of obstruction. Patient not concern for . Patient presenting with right flank pain. Differential includes colitis, diverticulitis, gastritis, pancreatitis, constipation, UTI, pyelonephritis, renal calculi, ureteral calculi, bowel obstruction, malignancy, dehydration, electrolyte abnormalities, , ectopic , ovarian cyst, ovarian torsion. She will be obtained to assess for white blood cell count, hemoglobin, platelets. CMP to assess liver function, renal function, electrolytes, glucose. Lipase to assess for pancreatitis. Urinalysis to assessfor UTI, hCG to assess for . Discussed with patient at length that we will try to avoid narcotic pain medication as she is constipated. We will startwith Toradol and Phenergan as she states that Zofran does not work for her and that Reglan makes her shaky. We do not have any IM Phenergan due to it being onbackorder but she did believe she could tolerate a p.o. Phenergan. She request some Benadryl as she states that this helps her with her symptoms. Will obtain CT of the abdomen pelvis with IV contrast. Also given a liter of normal saline. CT shows a normal white blood cell count 8.6. Hemoglobin stable at 13.1. Platelets normal at 257. Renal function electrolytes within normal limits. LFTs are normal. Is within normal limits. Urinalysis negative. AG negative. Patient was initially treated with Benadryl at her request. She is also given oral Phenergan because she cannot tolerate Zofran or Reglan. She has not had any vomiting. On reevaluation she states she still having some discomfort and request a second dose of Benadryl although she just received her Benadryl. CT of the abdomen pelvis does not show any evidence of a Crohn's flare obstruction,other acute finding. Patient counseled that there is minimal stool burden on her CT. She request some Phenergan for home. I recommended that she do stool softeners and laxatives as she still feels like she is clinically constipated. Discussed at length not using narcotic pain medication because she feels subjectively constipated and this would make her worse. We discussed possibly doing steroids but she does not want to take these because they make her not sleep. There is also no evidence that she is having a Crohn's flare so this would likely not be helpful. At this point the patient is discharged home in stable condition. Return precautions discussed. Impression: 1. Abdominal pain 2. Constipation 3. Nausea Lab Data Attestation: I reviewed the patient's lab results. Labs: Laboratory Results - last 24 hr 10/25/23 10/25/23 16:50 16:55 WBC 8.6 RBC 4.69 Hgb 13.1 Hct 40.8 MCV 87.0 MCH 27.9 MCHC 32.1 RDW Std Deviation 41.5 RDW Coeff of Silke 13.3 Plt Count 257 MPV 10.2 Immature Gran % (Auto) 0.200 Neut % (Auto) 53.6 Lymph % (Auto) 34.3 [place] % (Auto) 6.5 Eos % (Auto) 4.8 Baso % (Auto) 0.6 Absolute Neuts (auto) 4.6 Absolute Lymphs (auto) 2.95 Nucleated RBC % 0 Sodium 141 Potassium 3.6 Chloride 108 H Carbon Dioxide 26.0 Anion Gap 7 BUN 6 L Creatinine 0.84 Estim Creat Clear Calc 81.49 Est GFR (MDRD) Af Amer 100 Est GFR (MDRD) Non-Af 82 BUN/Creatinine Ratio 7.2 L Glucose 119 H Calcium 9.4 Total Bilirubin 0.70 AST 14 L ALT 22 Alkaline Phosphatase 81 Total Protein 7.7 Albumin 3.7 Globulin 4.0 Albumin/Globulin Ratio 0.9 Lipase 22 Serum , Qual NEGATIVE Urine Color Yellow Urine Clarity Clear Urine pH 7.0 Ur Specific [place] 1.015 Urine Protein 15 H Urine Glucose (UA) Normal Urine Ketones Negative Urine Occult Blood Negative Urine Nitrite Negative Urine Bilirubin Negative Urine Urobilinogen Normal Ur Leukocyte Esterase Negative Urine RBC 0 SEEN Urine WBC 0-5 SEEN Ur Squamous Epith Cells 0-5 SEEN Urine Bacteria 0 SEEN Urine Mucus 0 SEEN Radiography Diagnostic Testing: Clinical Impression(s) from Imaging Studies Abdomen/Pelvis CT 10/25/23 17:48 IMPRESSION: No acute process within the abdomen or pelvis. Electronically Signed: Armida Villarreal MD at 19:01 EST , Discharge Plan Triage Chief Complaint: Nausea/Vomiting ED Provider: Garrett Brooks Dx/Rx/DC Orders Instructions: ED Constipation (Adult) Prescriptions: New promethazine 25 mg tablet 25 mg PO TID PRN (Reason: nausea and vomiting) Qty: 14 0RF No Action diazepam 10 mg tablet 10 mg PO Q8H PRN (Reason: muscle spasm) modafinil 200 mg tablet 200 mg PO DAILY doxepin 50 mg capsule 50 mg PO DAILY doxepin 6 mg tablet 6 mg PO DAILY cyclobenzaprine 5 mg tablet 5 mg PO Q8H PRN (Reason: muscle spasm) [facility] Referrals: Juan Alberto Ho DO [Med Staff - Active Staff] - 3-5 Days [facility]Maddie Dennis [Primary Care Provider] - Disposition Disposition: Home, Self Care What to do if you have Problems For any increased pain, shortness of breath, bleeding, nausea or vomiting, chestpain, or any unexpected problems, contact your Primary Care Provider. Call [facility] ([phone]) or report to the closest Emergency Room. Call 911 if necessary. 10/25/232012 <Electronically signed by Garrett Brooks DO> Cosigner Signature (if applicable): CC: [facility] ~ Signed [facility] Work Phone: [phone]) 522-175503-19-[address] Brooks [facility] January 21, 2023 6:33pm Note Date/Time January 21, 2023 3:3 5pm [facility] Medical Records Department [address] [place] [address] Emergency Department Summary 01/21/23 MR#: [id number] Acct: [id number] Name: DAYNA STEWARD Rep #:[id number] : 1990 32 From: Garrett Brooks DO PCP: Care Physician,No Primary Status :REG ER Location: ED HPI HPI - GI History of Present Illness Chief Complaint: Abd Pain Narrative Narrative: 32-year-old female with with stated history of IBS and Crohn's disease presenting with nausea, vomiting, diarrhea for about a week. She reports a 10 pound weight loss. No coffee-ground emesis. No black or bloody stools. She does have diffuse generalized pain. Patient states she put her self on a liquiddiet because she believed this would keep her out of the emergency room. She states this is not working. She states she has tried Epsom salt baths, hot showers, pressure points and this is working. Patient states he was previously on Biologics distantly. She was on?Cimzia. Patient states as a child she had apartial colonectomy and her gallbladder was taken out at age 7 as a child in [place]. States that her insurance is about to kick in in 2 weeks and that in 3 weeks she has an appointment with [facility] to see a GI doctor. Patient also complains of left jaw pain. She states that she previously had bad teeth in the left mandible. She was concerned that it might be her left ear as well. She has not any drainage or discharge. [facility] Medical History Crohn's disease Home Medications dronabinol 5 mg capsule (Marinol) 5 mg PO BID 04/21/18 [History Last Taken Unknown] haloperidol 5 mg tablet 5 mg PO PRN PRN Anxiety 04/21/18 [History Last Taken Unknown] sertraline 100 mg tablet 150 mg PO DAILY 04/21/18 [History Last Taken Unknown] metronidazole 500 mg tablet 500 mg PO Q8H #30 tabs 05/18/18 [Rx Last Taken Unknown] dicyclomine 20 mg tablet 20 mg PO TID abdominal pain #30 tabs 08/18/22 [Rx Last Taken Unknown] promethazine 25 mg rectal suppository (Promethegan) 25 mg RECTAL Q6H PRN PRN Nausea ##10 08/18/22 [Rx Last Taken Unknown] promethazine 25 mg tablet 25 mg PO Q6H PRN nausea and vomiting #10 tabs 08/18/22[Rx Last Taken Unknown] promethazine 25 mg tablet 25 mg PO Q6H PRN PRN Nausea #20 TABLETS 10/26/22 [Rx Last Taken Unknown] dicyclomine 10 mg capsule 20 mg PO TIDAC #20 CAPSULES 12/14/22 [Rx Last Taken Unknown] ondansetron 4 mg disintegrating tablet 4 mg PO Q8H PRN PRN Nausea #10 tabs 12/14/22 [Rx Last Taken Unknown] potassium chloride 20 mEq tablet,extended release 20 meq PO BID #14 tabs 12/14/22 [Rx Last Taken Unknown] amoxicillin 875 mg-potassium clavulanate 125 mg tablet 1 tab PO BID #20 tabs 01/21/23 [Rx Last Taken Unknown] dicyclomine 20 mg tablet 20 mg PO TID #14 tabs 01/21/23 [Rx Last Taken Unknown] promethazine 25 mg tablet 25 mg PO TID PRN nausea and vomiting #14 tabs 01/21/23[Rx Last Taken Unknown] Allergy/AdvReac Type Severity Reaction Status Date / Time benzocaine [From Cetacaine] Allergy Anaphylaxis Verified 01/21/23 15:09 butamben [From Cetacaine] Allergy Anaphylaxis Verified 01/21/23 15:09 methylprednisolone sodium Allergy Anaphylaxis Verified 01/21/23 15:09 succinate [From Solu-Medrol] tetracaine [From Cetacaine] Allergy Anaphylaxis Verified 01/21/23 15:09 midazolam HCl [From Versed] AdvReac Other Verified 01/21/23 15:09 Social History Smoking Status: Current every day smoker tobacco type: cigarettes ROS ROS ED Constitutional Constitutional ED: Denies chills or fever(s) ENT ENT ED: Reports other Details: Left ear pain Left mandible pain ; Denies rhinorrhea or sore throat Cardiovascular Cardiovascular: Denies chest pain or palpitations Respiratory/Chest Respiratory/Chest: Denies cough or dyspnea Gastrointestinal Gastrointestinal: Reports abdominal pain, diarrhea, nausea and vomiting Genitourinary Genitourinary ED: Denies dysuria or hematuria Musculoskeletal Musculoskeletal: Denies arthralgias Integumentary Denies abscess Neurologic Neurologic: Reports headache(s) Psychiatric Psychiatric: Denies anxiety or depression EXAM Physical Exam Const Vital Signs: 01/21/23 15:10 01/21/23 17:09 Temperature 96.3 F L Temperature Source Temporal Pulse Rate 77 Respiratory Rate 18 18 Blood Pressure 136/78 H Blood Pressure Mean 97 Pulse Ox 100 Oxygen Delivery Method Room Air Positive well nourished and obese General Appearance ED: NAD Nutritional Appearance: obese HEENT Reports moist mucous membranes HEENT Narrative: First and second molars on the left. Essentially have eroded. There is no drainable abscess here. Multiple dental caries. Buccal mucosa normal. Sublingual edema. Tolerating secretions. No submandibular or submental edema. normocephalic Eyes PERRL and EOMs intact bilaterally General Eye ED: Negative for pale conjunctiva or scleral icterus Resp normal respiratory effort and clear to auscultation bilaterally Auscultation: Negative for rales, rhonchi or wheezes Cardio regular rate and regular rhythm GI GI Narrative: Diffuse generalized tenderness. No peritoneal signs. No rebound or guarding. Back/Spine no CVA tenderness Neuro CN's II-XII intact bilaterally Sensorium / Orientation: alert Motor Exam: strength 5/5 throughout Psych mental status grossly normal MDM MDM MDM Narrative Medical decision making narrative: Patient presenting with diffuse generalized abdominal pain, nausea, vomiting, diarrhea. She reports a history of Crohn's disease and IBS. Her abdominal examis benign currently but she reports pain everywhere. Differential includes but is not limited to gastritis, peptic ulcer disease, appendicitis, diverticulitis,pancreatitis, small bowel obstruction, viral etiology, IBS, Crohn's flare. She has never lazarus Sheppard sign so low suspicion for cholecystitis or cholelithiasis. There was a protocol EKG performed because the patient was initially complaining of the left jaw pain and this shows a normal sinus rhythm with a ventricular rate of 69 bpm without sign of ischemic change. After examining her I do not believe she needs a troponin. I believe this is all due to dental infection. CBC to assess white blood cell count, differential. CMP toassess liver function, renal function, glucose, anion gap. Lipase to assess forpancreatitis. Serum hCG to assess for . Urinalysis assess for UTI. Patient medicated with morphine and Zofran. He is given a liter of normal saline. Currently her vital signs are stable and she is afebrile. She did ask me to also assess her left molar and premolar which is been hurting her over thecourse of the week. These have essentially eroded over time. She will likely need antibiotics for this. CBC shows minimal leukocytosis with white count 11.1. Hemoglobin hematocrit are stable. Platelets are normal. Creatinine slightly elevated at 1.06 previously 0.77 months ago. Patient was given IV fluids. Liver function testing unremarkable. Lipase of negative. Serum test negative. Urinalysis negative for infection. Patient was medicated with a second dose of morphine at her request after the CT was performed. CT of the abdomen pelvis was essentially normal with no acute findings. On reevaluation the patient is doing well. She request a work note for today. I will put her on Augmentin for her dental infection. She is given a dental referral sheet. She was given Phenergan and Bentyl to help with her abdominal symptoms. She is amenable to this. She is discharged home in stable condition. Impression: 1. Abdominal pain 2. Nausea/vomiting 3. Dental infection 4. Diarrhea Lab Data Attestation: I reviewed the patient's lab results. Labs: Laboratory Results - last 24 hr 01/21/23 01/21/23 01/21/23 04:20 04:20 15:50 WBC 11.1 H RBC 4.99 Hgb 13.0 Hct 41.2 MCV 82.6 MCH 26.1 L MCHC 31.6 L RDW Std Deviation 43.9 RDW Coeff of Silke 14.7 H Plt Count 282 MPV 10.8 Immature Gran % (Auto) 0.300 Neut % (Auto) 69.2 Lymph % (Auto) 25.7 [place] % (Auto) 4.3 Eos % (Auto) 0.1 Baso % (Auto) 0.4 Absolute Neuts (auto) 7.7 Absolute Lymphs (auto) 2.86 Nucleated RBC % 0 Sodium 139 Potassium 3.8 Chloride 108 H Carbon Dioxide 24.0 Anion Gap 7 BUN 9 Creatinine 1.06 H Estim Creat Clear Calc 64.58 Est GFR (MDRD) Af Amer 76 Est GFR (MDRD) Non-Af 63 BUN/Creatinine Ratio 8.5 L Glucose 114 H Calcium 8.9 Total Bilirubin 0.90 AST 12 L ALT 15 Alkaline Phosphatase 74 Total Protein 7.7 Albumin 3.4 Globulin 4.3 H Albumin/Globulin Ratio 0.8 L Lipase 57 L Serum , Qual NEGATIVE Urine Color Urine Clarity Urine pH Ur Specific [place] Urine Protein Urine Glucose (UA) Urine Ketones Urine Occult Blood Urine Nitrite Urine Bilirubin Urine Urobilinogen Ur Leukocyte Esterase Urine RBC Urine WBC Ur Squamous Epith Cells Urine Bacteria Urine Mucus 01/21/23 16:11 WBC RBC Hgb Hct MCV MCH MCHC RDW Std Deviation RDW Coeff of Silke Plt Count MPV Immature Gran % (Auto) Neut % (Auto) Lymph % (Auto) [place] % (Auto) Eos % (Auto) Baso % (Auto) Absolute Neuts (auto) Absolute Lymphs (auto) Nucleated RBC % Sodium Potassium Chloride Carbon Dioxide Anion Gap BUN Creatinine Estim Creat Clear Calc Est GFR (MDRD) Af Amer Est GFR (MDRD) Non-Af BUN/Creatinine Ratio Glucose Calcium Total Bilirubin AST ALT Alkaline Phosphatase Total Protein Albumin Globulin Albumin/Globulin Ratio Lipase Serum , Qual Urine Color Straw Urine Clarity Clear Urine pH 6.5 Ur Specific [place] 1.010 Urine Protein Negative Urine Glucose (UA) Normal Urine Ketones Negative Urine Occult Blood Negative Urine Nitrite Negative Urine Bilirubin Negative Urine Urobilinogen Normal Ur Leukocyte Esterase Negative Urine RBC 0 SEEN Urine WBC 0 SEEN Ur Squamous Epith Cells 0-5 SEEN Urine Bacteria 0 SEEN Urine Mucus 0 SEEN Radiography Diagnostic Testing: Clinical Impression(s) from Imaging Studies Abdomen/Pelvis CT 01/21/23 15:34 IMPRESSION: 1. No masses bowel obstruction abscess free fluid or free air. Normal appendix noted. No evidence diverticulitis. No areas of inflammatory change or wall thickening. 2. No evidence of obstructive uropathy. 3. Gallbladder is not visualized likely status post cholecystectomy. No ductal dilatation. Electronically Signed: Eddi Luna MD at 17:45 EDT , Discharge Plan Triage Chief Complaint: Abd Pain ED Provider: Garrett Brooks Dx/Rx/DC Orders Prescriptions: New dicyclomine 20 mg tablet 20 mg PO TID Qty: 14 0RF promethazine 25 mg tablet 25 mg PO TID PRN (Reason: nausea and vomiting) Qty: 14 0RF amoxicillin-pot clavulanate 875-125 mg tablet 1 tab PO BID Qty: 20 0RF No Action haloperidol 5 MG tablet 5 mg PO PRN PRN (Reason: Anxiety) dronabinol [Marinol] 5 MG capsule 5 mg PO BID sertraline 100 MG tablet 150 mg PO DAILY metronidazole 500 MG tablet 500 mg PO Q8H Qty: 30 0RF promethazine [Promethegan] 25 mg suppository 25 mg RECTAL Q6H PRN PRN (Reason: Nausea) Qty: 10 0RF promethazine 25 mg tablet 25 mg PO Q6H PRN (Reason: nausea and vomiting) Qty: 10 0RF dicyclomine 20 mg tablet 20 mg PO TID Qty: 30 0RF promethazine [promethazine] 25 mg tablet 25 mg PO Q6H PRN PRN (Reason: Nausea) Qty: 20 0RF ondansetron [ondansetron] 4 mg tablet,disintegrating 4 mg PO Q8H PRN PRN (Reason: Nausea) Qty: 10 0RF dicyclomine 10 mg capsule 20 mg PO TIDAC Qty: 20 0RF potassium chloride 20 mEq tablet extended release 20 meq PO BID Qty: 14 0RF Stand Alone Forms: ED Work / School Excuse Primary Care Provider: Care Physician,No Primary Referrals: [facility] [Outside] - 3-5 Days Care Physician,No Primary [Primary Care Provider] - Disposition Disposition: Home, Self Care What to do if you have Problems For any increased pain, shortness of breath, bleeding, nausea or vomiting, chestpain, or any unexpected problems, contact your Primary Care Provider. Call [facility] ([phone]) or report to the closest Emergency Room. Call 911 if necessary. 01/21/231832 <Electronically signed by Garrett Brooks DO> Cosigner Signature (if applicable): CC: No Primary Care Physician ~ Signed [facility] Work Phone: [phone]) 559-819302-09-[address] Taylor [facility] December 14, 2022 11:20pm Note Date/Time December 14, 2022 9 :02pm [facility] Medical Records Department [address] [place] [address] Emergency Department Summary 12/14/22 MR#: [id number] Acct: [id number] Name: DAYNA STEWARD Rep #:[id number] : 1990 32 From: Jimmy Taylor MD PCP: Care Physician,No Primary Status :REG ER Location: ED HPI History of Present Illness Chief Complaint: Abd Pain Informant: patient Narrative Narrative: Patient presents with abdominal pain mostly along the right side. It does radiate a little bit to her back but mostly in the right side. She is denying chest pain or dyspnea to me. Sometimes a deep breath makes her abdomen hurt butnot her chest. And she is not short of breath. She had diarrhea couple days ago but now bowel movements are normal. No blood seen. She has had intermittent nausea but no vomiting. Eating might seem to bother it a little bit but not consistently. Patient had her gallbladder out when she was 6 years old. I then find out patient also has Crohn's disease. She denies surgery for this. She has not been on medicine for Crohn's for approximately 6 years. She is not sure if this is a Crohn's exacerbation. She does not think she ate anything abnormal. She gets pain like this commonly but it is normally gone in 20 or 30 minutes and this is still going on after about 5 or 6 hours. No feversor chills. She denies urinary symptoms to me. She states she can urinate a large volume but this is not new or different. She has never been diagnosed with diabetes. She does not have polydipsia. She has multiple meds listed on her chart here. However, she denies being on any meds for anything at this time. [facility] Medical History Crohn's disease Home Medications dronabinol 5 mg capsule (Marinol) 5 mg PO BID 04/21/18 [History Last Taken Unknown] haloperidol 5 mg tablet 5 mg PO PRN PRN Anxiety 04/21/18 [History Last Taken Unknown] sertraline 100 mg tablet 150 mg PO DAILY 04/21/18 [History Last Taken Unknown] metronidazole 500 mg tablet 500 mg PO Q8H #30 tabs 05/18/18 [Rx Last Taken Unknown] dicyclomine 20 mg tablet 20 mg PO TID abdominal pain #30 tabs 08/18/22 [Rx Last Taken Unknown] promethazine 25 mg rectal suppository (Promethegan) 25 mg RECTAL Q6H PRN PRN Nausea ##10 08/18/22 [Rx Last Taken Unknown] promethazine 25 mg tablet 25 mg PO Q6H PRN nausea and vomiting #10 tabs 08/18/22[Rx Last Taken Unknown] promethazine 25 mg tablet 25 mg PO Q6H PRN PRN Nausea #20 TABLETS 10/26/22 [Rx Last Taken Unknown] dicyclomine 10 mg capsule 20 mg PO TIDAC #20 CAPSULES 12/14/22 [Rx Last Taken Unknown] ondansetron 4 mg disintegrating tablet 4 mg PO Q8H PRN PRN Nausea #10 tabs 12/14/22 [Rx Last Taken Unknown] potassium chloride 20 mEq tablet,extended release 20 meq PO BID #14 tabs 12/14/22 [Rx Last Taken Unknown] Allergy/AdvReac Type Severity Reaction Status Date / Time benzocaine [From Cetacaine] Allergy Anaphylaxis Verified 12/14/22 19:15 butamben [From Cetacaine] Allergy Anaphylaxis Verified 12/14/22 19:15 methylprednisolone sodium Allergy Anaphylaxis Verified 12/14/22 19:15 succinate [From Solu-Medrol] tetracaine [From Cetacaine] Allergy Anaphylaxis Verified 12/14/22 19:15 midazolam HCl [From Versed] AdvReac Other Verified 12/14/22 19:15 Social History Smoking Status: Current every day smoker tobacco type: cigarettes ROS ROS ED Constitutional Constitutional ED: Denies chills or fever(s) ENT ENT ED: Denies rhinorrhea or sore throat Cardiovascular Cardiovascular: Denies chest pain or palpitations Respiratory/Chest Respiratory/Chest: Denies cough or dyspnea Gastrointestinal Gastrointestinal: Reports abdominal pain, diarrhea and nausea; Denies constipation, melena or vomiting Genitourinary Genitourinary ED: Reports urinary frequency; Denies dysuria or hematuria Musculoskeletal Musculoskeletal: Reports back pain; Denies neck pain Integumentary Denies Abrasions or rash Neurologic Neurologic: Denies paresthesias Endocrine Endocrinology: Reports polyuria; Denies polydipsia Hematologic/Lymphatic Hematologic/Lymphatic: Denies easy bleeding or easy bruising Allergic/Immunologic Allergic/Immunologic ED: Denies urticaria EXAM Physical Exam Narrative Exam Narrative: Patient awake alert and laying in bed. She looks mildly uncomfortable but in noacute distress HEENT shows moist mucous membranes. Eyes show no sign of icterus. Neck is supple with no JVD Lungs are clear and she takes easy deep breaths without pain. Oxygen saturationis at 100% on room air showing no hypoxia. Heart is regular with rate about 75 or 80. No murmur gallop or rub. Abdomen is actually surprisingly soft considering she is states she is in pain. I am not really getting much tenderness that is consistent at all on exam. If Iget any gets toward the right side. More in the mid and upper quadrant not in the right lower. No rebound or guarding. No CVA tenderness. Extremities show no edema or swelling Neurologically she is awake alert and appropriate. Const Vital Signs: 12/14/22 19:15 Temperature 96.9 F L Temperature Source Temporal Pulse Rate 79 Respiratory Rate 18 Blood Pressure 166/103 H Blood Pressure Mean 124 Pulse Ox 100 Oxygen Delivery Method Room Air MDM MDM MDM Narrative Medical decision making narrative: My independent interpretation of the patient's CT of the abdomen with IV contrast shows no acute obstructive pattern. I do not see any inflammatory changes. Pancreas looks normal. Gallbladder is missing surgically consistent with her history. Official reading by radiology as no acute abnormalities in the abdomen or pelvis. Patient CBC shows normal white count. Minimal anemia at 11.8. She has not beenhaving any bloody stools. Electrolytes were good other than a low potassium at 2.9. But she is not having any cramping weakness or tingling. She has had low potassium before but normally only when she has had watery diarrhea or C. difficile diarrhea. She is not having symptoms consistent with this now. She had 1 soft bowel movement 2 days ago but has been normal since. test was negative. Urine is clean. Since the patient is able to eat and drink and is not having diarrhea or flare of Crohn's, I do think we can get her home. I will write for potassium. We will also write for Zofran and Bentyl for cramping. We discussed reasons to return that would include worsening pain, fevers, blood in the stool, significant diarrhea or other concerns. 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 Lab Data Attestation: I reviewed the patient's lab results. Labs: Laboratory Results - last 24 hr 12/14/22 12/14/22 12/14/22 20:59 20:59 20:59 WBC 7.8 RBC 4.58 Hgb 11.8 L Hct 37.1 MCV 81.0 MCH 25.8 L MCHC 31.8 L RDW Std Deviation 41.3 RDW Coeff of Silke 14.1 Plt Count 277 MPV 10.2 Immature Gran % (Auto) 0.300 Neut % (Auto) 56.1 Lymph % (Auto) 37.2 [place] % (Auto) 5.7 Eos % (Auto) 0.1 Baso % (Auto) 0.6 Absolute Neuts (auto) 4.4 Absolute Lymphs (auto) 2.92 Nucleated RBC % 0 Sodium 142 Potassium 2.9 L Chloride 108 H Carbon Dioxide 24.0 Anion Gap 10 BUN 7 Creatinine 0.77 Estim Creat Clear Calc 88.90 Est GFR (MDRD) Af Amer 110 Est GFR (MDRD) Non-Af 91 BUN/Creatinine Ratio 9.0 L Glucose 98 Calcium 9.1 Total Bilirubin 0.80 AST 16 ALT 17 Alkaline Phosphatase 65 Total Protein 7.5 Albumin 3.7 Globulin 3.8 Albumin/Globulin Ratio 1.0 Lipase 87 Serum , Qual NEGATIVE Urine Color Urine Clarity Urine pH Ur Specific [place] Urine Protein Urine Glucose (UA) Urine Ketones Urine Occult Blood Urine Nitrite Urine Bilirubin Urine Urobilinogen Ur Leukocyte Esterase Urine RBC Urine WBC Ur Squamous Epith Cells Urine Bacteria Urine Mucus 12/14/22 20:59 WBC RBC Hgb Hct MCV MCH MCHC RDW Std Deviation RDW Coeff of Silke Plt Count MPV Immature Gran % (Auto) Neut % (Auto) Lymph % (Auto) [place] % (Auto) Eos % (Auto) Baso % (Auto) Absolute Neuts (auto) Absolute Lymphs (auto) Nucleated RBC % Sodium Potassium Chloride Carbon Dioxide Anion Gap BUN Creatinine Estim Creat Clear Calc Est GFR (MDRD) Af Amer Est GFR (MDRD) Non-Af BUN/Creatinine Ratio Glucose Calcium Total Bilirubin AST ALT Alkaline Phosphatase Total Protein Albumin Globulin Albumin/Globulin Ratio Lipase Serum , Qual Urine Color Yellow Urine Clarity Clear Urine pH 6.5 Ur Specific [place] 1.010 Urine Protein Negative Urine Glucose (UA) Normal Urine Ketones Negative Urine Occult Blood Negative Urine Nitrite Negative Urine Bilirubin Negative Urine Urobilinogen Normal Ur Leukocyte Esterase Negative Urine RBC 0 SEEN Urine WBC 0 SEEN Ur Squamous Epith Cells 0 SEEN Urine Bacteria 0 SEEN Urine Mucus 0 SEEN Radiography Diagnostic Testing: Clinical Impression(s) from Imaging Studies Abdomen/Pelvis CT 12/14/22 20:47 IMPRESSION: No acute abnormalities in the abdomen or pelvis. Electronically Signed: Carline Schneider MD at 22:29 EST , Discharge Plan Triage Chief Complaint: Abd Pain Other Complaint: Chest Other Complaint ED Provider: Jimmy Taylor Dx/Rx/DC Orders Clinical Impression: Abdominal pain, Hypokalemia, History of Crohn's disease Instructions: ED Abdominal Pain Unkn Cause Fem, ED Hypokalemia Prescriptions: New ondansetron [ondansetron] 4 mg tablet,disintegrating 4 mg PO Q8H PRN PRN (Reason: Nausea) Qty: 10 0RF dicyclomine 10 mg capsule 20 mg PO TIDAC Qty: 20 0RF potassium chloride 20 mEq tablet extended release 20 meq PO BID Qty: 14 0RF No Action haloperidol 5 MG tablet 5 mg PO PRN PRN (Reason: Anxiety) dronabinol [Marinol] 5 MG capsule 5 mg PO BID sertraline 100 MG tablet 150 mg PO DAILY metronidazole 500 MG tablet 500 mg PO Q8H Qty: 30 0RF promethazine [Promethegan] 25 mg suppository 25 mg RECTAL Q6H PRN PRN (Reason: Nausea) Qty: 10 0RF promethazine 25 mg tablet 25 mg PO Q6H PRN (Reason: nausea and vomiting) Qty: 10 0RF dicyclomine 20 mg tablet 20 mg PO TID Qty: 30 0RF promethazine [promethazine] 25 mg tablet 25 mg PO Q6H PRN PRN (Reason: Nausea) Qty: 20 0RF Primary Care Provider: Care Physician,No Primary Referrals: Laney Wesley MD [Med Staff - Agronomist] - As soon as possible Friend,Juan AlbertoDO [Med Staff - Active Staff] - As soon as possible Care Physician,No Primary [Primary Care Provider] - Disposition Disposition: Home, Self Care What to do if you have Problems For any increased pain, shortness of breath, bleeding, nausea or vomiting, chestpain, or any unexpected problems, contact your Primary Care Provider. Call [facility] ([phone]) or report to the closest Emergency Room. Call 911 if necessary. 12/14/220 <Electronically signed by Jimmy Taylor MD> Cosigner Signature (if applicable): CC: No Primary Care Physician ~ Signed [facility] Work Phone: 1(961) 320-614511-02-2022 Hospital Discharge instructions Patient Education 09/06/2022 18:29:58 Back Pain (Acute or Chronic) Back Pain (Acute or Chronic) Back pain is one of the most common problems. The good news is that most people feel better in 1 to2 weeks, and most of the rest in [...] muscles or spine cause the pain. Mechanical problemsare usually caused by an injury to the [...] your side with your knees bent up towardsyour chest and a pillow between your knees. [...] are taking other medicines. You may use itla-gil-uvebiwr medicine as directed on the bottle to control pain, unless another pain medicine was prescribed. If you have chronic conditions like diabetes, liver or kidney disease, stomach ulcers, or gastrointestinal bleeding, or are taking blood thinners, talk to your doctor beforetaking any medicine. Be careful if you are [...] Numbness in the groin or genital area 5441-5[address] [employer] [place], [place] [address]. All rights reserved. This information is not intended as a substitute for professional medical care. Always follow yourhealthcare professional's instructions. Follow Up Care 09/06/2022 16:54:12 With:Follow up with primary care provider Address:Unknown When:2-4 days Comments:Take ibuprofen for pain, follow close with your doctor. Eat a high potassium diet including bananas, oranges, avocados, black beans, potatoes. Follow-up with your doctor [facility] 11-02-2022 Emergency department Discharge summary Discharge Instructions Thank you for allowing [facility] to assist you with your healthcare needs. The following is importantdischarge information regarding your hospital visit. Diagnosis from [...] and or supplements as they may interact withyour home medications. What How Much When Instructions [...] nonsteroidal anti-inflammatory drug (NSAID) that is used short- term (5 days or less)to treat moderate to severe pain. Ketorolac may [...] your doctor tells you to. Taking an NSAIDduring the last 20 weeks of can cause serious heart or kidney problems in the unborn babyand possible complications with your . Tell your [...] reaction (fever, sore throat, burning in your eyes,skin pain, red or purple skin rash that [...] feet or ankles, feeling tired or short ofbreath; o low red blood cells (anemia)--pale skin, [...] may report side effects to FDA at [phone]-KDC-8031. What other drugs will affect ketorolac? Ask [...] drugs may affect ketorolac, including prescription and tszn-gvb-xcfrvvz medicines, vitamins, and herbal products. Not all [...] to ensure that the information provided by [employer]. ('[employer]') is accurate, up-to-date, and complete, but no guarantee is made to that effect. Drug information contained herein may be time sensitive. [employer] information has been compiled for use by healthcare practitioners and consumers in the [place] and therefore [employer] does not warrant that uses outside of the [place] are appropriate, unless specifically indicated otherwise. [employer] drug information does not endorse drugs, diagnose patients or recommend therapy. [employer] drug information isan informational resource designed to assist licensed healthcare practitioners in caring for their p atients and/or to serve consumers viewing this service as a supplement to, and not a substitute for, the expertise, skill, knowledge and judgment of healthcare practitioners. The absence of a warningfor a given drug or drug combination in no way should be construed to indicate that the drug or drug combination is safe, effective or appropriate for any given patient. [employer] does not assume any responsibility for any aspect of healthcare administered with the aid of information [employer] provides. The information contained herein is not intended to cover all possible uses, directions, precautions, warnings, drug interactions, allergic reactions, or adverse effects. If you have questions about the drugs you are taking, check with your doctor, nurse or pharmacist. Copyright 5973-8792 [employer]. Version: 10.01. Revision Date: 11/19/2020. lidocaine topical (LYE mehta joseph TOP i maria alejandra) AneCream, Bactine, Glydo, LidaMantle, Lidoderm, LidoRx, Medi-Quik Magnolia, RadiaGuard, RectiCare, Regenecare NIELSEN Magnolia, Solarcaine Cool Aloe What is the most [...] irritations such as sunburn, insect bites, poison joy, poison oak, poison sumac, and minor cuts, scratches,or verdugo. Lidocaine topical is also used to [...] it has been prescribed by your doctor. Donot apply this medicine in larger amounts than [...] over large skin areas, or if you applyheat, bandages, or plastic wrap to treated skin [...] a child or pet who accidentally sucks onor swallows the patch. Seek emergency medical attention [...] of the medicine is absorbed through your skinand into your blood. Overdose symptoms may include [...] may report side effects to FDA at 0-119-ZYB-7122. What other drugs will affect lidocaine topical? Medicine used on the skin is not likely to be affected by other drugs you use. But many drugs can interact with each other. Tell each of your health care providers about all medicines you use, including prescription and asoz-vrw-tkmajhk medicines, vitamins, and herbal products. Where can I get more information? Your pharmacist can provide more information about lidocaine topical. Remember, keep this and all other medicines out of the reach of children, never share your medicines with others, and use this medication only for the indication prescribed. Every effort has been made to ensure that the information provided by [employer]. ('[employer]') is accurate, up-to-date, and complete, but no guarantee is made to that effect. Drug information contained herein may be time sensitive. [employer] information has been compiled for use by healthcare practitioners and consumers in the [place] and therefore [employer] does not warrant that uses outside of the [place] are appropriate, unless specifically indicated otherwise. [employer] drug information does not endorse drugs, diagnose patients or recommend therapy. [employer]fus drug information isan informational resource designed to assist licensed healthcare practitioners in caring for their p atients and/or to serve consumers viewing this service as a supplement to, and not a substitute for, the expertise, skill, knowledge and judgment of healthcare practitioners. The absence of a warningfor a given drug or drug combination in no way should be construed to indicate that the drug or drug combination is safe, effective or appropriate for any given patient. [facility] does not assume any responsibility for any aspect of healthcare administered with the aid of information [facility] provides. The information contained herein is not intended to cover all possible uses, directions, precautions, warnings, drug interactions, allergic reactions, or adverse effects. If you have questions about the drugs you are taking, check with your doctor, nurse or pharmacist. Copyright 2692-5101 [employer]. Version: 9.02. Revision Date: 03/21/2022. Education Materials Back Pain (Acute or Chronic) Back pain is one of the most common problems. The good news is that most people feel better in 1 to2 weeks, and most of the rest in [...] muscles or spine cause the pain. Mechanical problemsare usually caused by an injury to the [...] your side with your knees bent up towardsyour chest and a pillow between your knees. [...] are taking other medicines. You may use eeep-ueu-qavkutq medicine as directed on the bottle to control pain, unless another pain medicine was prescribed. If you have chronic conditions like diabetes, liver or kidney disease, stomach ulcers, or gastrointestinal bleeding, or are taking blood thinners, talk to your doctor beforetaking any medicine. Be careful if you are [...] Numbness in the groin or genital area [id number] The [employer]. [address] [place] [address]. All rights reserved. This information is not intended as a substitute for professional medical care. Always follow yourhealthcare professional's instructions. Additional Information VACCINATE! IT SAVES LIVES! Members of the community who have not yet received the COVID-19 vaccine and would like to receive it can visit one of [facility] vaccine clinics. There are many vaccine clinic locations within the [facility]. For locations and available times, please visit [email or web address]. It is important to note that some COVID mobile vaccine clinics are held outdoors and may be canceled in rainy orstormy conditions. To learn more about pediatric vaccinations (ages 5-11), we invite you to visit the [facility] webpage. [email or web address]/[email or web address]-[email or web address] stions.htmlTo learn more about the COVID-19 vaccine, we invite you to visit the [facility] website for a list of frequently asked questions. [email or web address] _[email or web address] [facility] Access Instructions: Stay connected with your healthcare team and access your personal medical information anytime with the [facility] Patient Portal. If you would like a full copy of your medical records please contact the [facility] Medical Records Department Sunday through Sunday between 8a.m. and 4:30p.m. Please follow the directions below to access the portal: 1.Access the email account you provided upon registration to the [facility].2.Look for an invitation email from [facility].3.Open the email and access the invitation link: Accept Invitation to [facility]4.Fill in the required garrison to create your account. Sign into [email or web address] with your username and password that you [...] you will allow to register on the [facility] Patient Portal for access to your information. You can also access the [facility] Patient Portal on the [employer]. Simply click on Health Records under [employer] and then click on the [employer] logo. HOW TO SAFELY DISPOSE OF PRESCRIPTION MEDICATIONS Please use one of the following methods to safely dispose of your unused medications. 1.Use a drug disposal kit: the drug disposal pouch allows you to safely discard your old and unuseddrugs. Ask your nurse to give you one when you are discharged.2.Visit a local take-back location: Many local pharmacies and police departments have programs that collect old and unwanted prescriptiondrugs. Call your local pharmacy or go to http://bit.ly/0P2Rm4e to find one close to you.3.Make use of household items: Use cat litter or old coffee grounds to dispose medications if other options arenot available. Mix your drugs with these household products, seal them in an airtight container andthrow it into the garbage. Call [facility]: [phone] to be sure your drugs can be [...] drowsiness, such as benzodiazepines, also known as benzos,including diazepam and alprazolam, muscle relaxants or sleep aids. Never sell or share prescriptionopioids. This is illegal. Store opioids in a [...] been reviewed and explained to me and I,DAYNA TINSLEY my current condition and have read and understand these discharge instructions. I have received a written copy of the plan/instructions. If I have questions, I am aware that I should contact my doctor. Patient/Non Destructive Testing Inspector Signature: Date/Time: Relationship to Patient: Witness Name/Signature: Date/Time: [facility] summary Author Major Mejia [facility] June 05, 2023 6:37am Note Date/Time June 05, 2023 6:[address] [facility] Medical Records Department [address] [place] [address] Emergency Department Summary 06/05/23 MR#: [id number] Acct: [id number] Name: DAYNA STEWARD Rep #:[id number] : 1990 32 From: Major Mejia DO [facility] atus[facility] Location: ED HPI History of Present Illness Chief Complaint: Upper Extremity Injury Informant: patient Narrative Narrative: Patient is a 32-year-old female with past medical history of Crohn's disease. She states that she was at work this evening when she was removing a biohazard bag and had some type of fluid leak onto her right arm. She states after this she began to feel like her right arm was swollen and began to feel cool with numbness and tingling. She states that then she noticed some pain radiating towards her chest. She states she had concerned that this could be cardiac in nature based on the symptoms moving towards her chest and therefore she comes infor evaluation [facility] Medical History Crohn's disease Home Medications dronabinol 5 mg capsule (Marinol) 5 mg PO BID 04/21/18 [History Last Taken Unknown] haloperidol 5 mg tablet 5 mg PO PRN PRN Anxiety 04/21/18 [History Last Taken Unknown] sertraline 100 mg tablet 150 mg PO DAILY 04/21/18 [History Last Taken Unknown] metronidazole 500 mg tablet 500 mg PO Q8H #30 tabs 05/18/18 [Rx Last Taken Unknown] dicyclomine 20 mg tablet 20 mg PO TID abdominal pain #30 tabs 08/18/22 [Rx Last Taken Unknown] promethazine 25 mg rectal suppository (Promethegan) 25 mg RECTAL Q6H PRN PRN Nausea ##10 08/18/22 [Rx Last Taken Unknown] promethazine 25 mg tablet 25 mg PO Q6H PRN nausea and vomiting #10 tabs 08/18/22[Rx Last Taken Unknown] promethazine 25 mg tablet 25 mg PO Q6H PRN PRN Nausea #20 TABLETS 10/26/22 [Rx Last Taken Unknown] dicyclomine 10 mg capsule 20 mg (2 x 10 mg) PO TIDAC #20 CAPSULES 12/14/22 [Rx Last Taken Unknown] ondansetron 4 mg disintegrating tablet 4 mg PO Q8H PRN PRN Nausea #10 tabs 12/14/22 [Rx Last Taken Unknown] potassium chloride 20 mEq tablet,extended release 20 meq PO BID #14 tabs 12/14/22 [Rx Last Taken Unknown] amoxicillin 875 mg-potassium clavulanate 125 mg tablet 1 tab PO BID #20 tabs 01/21/23 [Rx Last Taken Unknown] dicyclomine 20 mg tablet 20 mg PO TID #14 tabs 01/21/23 [Rx Last Taken Unknown] promethazine 25 mg tablet 25 mg PO TID PRN nausea and vomiting #14 tabs 01/21/23[Rx Last Taken Unknown] Allergy/AdvReac Type Severity Reaction Status Date / Time benzocaine [From Cetacaine] Allergy Anaphylaxis Verified 06/05/23 04:38 butamben [From Cetacaine] Allergy Anaphylaxis Verified 06/05/23 04:38 methylprednisolone sodium Allergy Anaphylaxis Verified 06/05/23 04:38 succinate [From Solu-Medrol] tetracaine [From Cetacaine] Allergy Anaphylaxis Verified 06/05/23 04:38 midazolam HCl [From Versed] AdvReac Other Verified 06/05/23 04:38 Social History Smoking Status: Current every day smoker tobacco type: cigarettes ROS ROS ED Constitutional Constitutional ED: Denies chills or fever(s) ENT ENT ED: Denies sore throat Cardiovascular Cardiovascular: Reports chest pain; Denies palpitations or racing heartbeat Respiratory/Chest Respiratory/Chest: Denies cough or dyspnea Gastrointestinal Gastrointestinal: Denies abdominal pain, diarrhea, nausea or vomiting Genitourinary Genitourinary ED: Denies dysuria Musculoskeletal Musculoskeletal: Reports other Details: Positive right arm pain Integumentary Denies rash Neurologic Neurologic: Denies headache(s) or paresthesias Hematologic/Lymphatic Hematologic/Lymphatic: Denies easy bleeding or easy bruising EXAM Physical Exam Const Vital Signs: 06/05/23 04:33 Temperature 98.9 F Temperature Source Oral Pulse Rate 84 Respiratory Rate 18 Blood Pressure 146/103 H Blood Pressure Mean 117 Pulse Ox 96 Oxygen Delivery Method Room Air Positive well nourished, well developed and obese General Appearance ED: well developed Nutritional Appearance: obese HEENT HEENT Narrative: Normocephalic atraumatic Eyes PERRL and EOMs intact bilaterally Neck full ROM and supple Neck Narrative: No bony deformity or step-off of the cervical spine no midline pain on palpation Negative Spurling sign bilaterally Chest Wall palpation of chest normal Chest Narrative: No bony deformity or crepitus noted Resp normal respiratory effort and clear to auscultation bilaterally Cardio regular rate and regular rhythm Cardio Narrative: Radial and carotid pulses are equal and symmetric GI non-tender, non-distended and no masses Auscultation: normoactive bowel sounds Palpation: soft Extremity normal to inspection and full ROM Extremity Narrative: Bilateral upper extremities are neurovascularly intact; AIN/PIN are intact and normal. Compartments are soft and compressible going against compartment syndrome. No asymmetric edema noted going against upper extremity DVT. Capillary refill is less than 3 seconds bilaterally. No overlying soft tissue changes to suggest trauma or infection Neuro oriented x3, CN's II-XII intact bilaterally, moves all extremities and no focal motor deficits Sensorium / Orientation: alert Psych Psych Narrative: Patient has a nervous/anxious affect Skin no rashes or lesions noted MDM MDM MDM Narrative Medical decision making narrative: Patient arrived to the ER mildly hypertensive but otherwise with stable vitals. She reported that symptoms began in her right arm after being splashed by some unknown fluid. On exam there are no soft tissue skin discoloration to suggest a chemical reaction or trauma. Compartments are soft going against compartment syndrome. She does not have physical exam findings consistent with an upper extremity DVT and as radial pulses are equal and this goes against arterial occlusion. Patient reported that her main concern was the progression of symptoms into her chest as this could be cardiac in nature. Therefore basic blood work was obtained which shows a normal troponin at 3. This value coupled with a normal EKG goes against acute coronary syndrome. As there is possibilitythis could be lung related as well a chest x- ray was obtained but did not show widening of the mediastinum or lung pathology such as pneumonia or pneumothorax. Also as patient reported feeling coolness I did elect to perform a lactic acid to confirm that there was no signs of ischemia that correlated with my physical exam. Lactic acid value was normal. Therefore at this time as chest x-ray shows no acute lung pathology physical exam does not suggest compartment syndrome upper extremity DVT arterial occlusion or ischemia and EKG and laboratory studies indicate there is no acute coronary syndrome patient is otherwise safe for discharge History & Record Review Discussion w/independent historian: Patient Lab Data Attestation: I reviewed the patient's lab results. Labs: Laboratory Results - last 24 hr 06/05/23 05:27 WBC 10.1 RBC 4.48 Hgb 12.3 Hct 38.1 MCV 85.0 MCH 27.5 MCHC 32.3 RDW Std Deviation 43.1 RDW Coeff of Islke 13.9 Plt Count 243 MPV 10.2 Immature Gran % (Auto) 0.300 Neut % (Auto) 64.4 Lymph % (Auto) 29.9 [place] % (Auto) 4.8 Eos % (Auto) 0.1 Baso % (Auto) 0.5 Absolute Neuts (auto) 6.5 Absolute Lymphs (auto) 3.02 Nucleated RBC % 0 Sodium 136 Potassium 5.0 Chloride 110 H Carbon Dioxide 22.0 Anion Gap 4 L BUN 3 L Creatinine 0.71 Estim Creat Clear Calc 96.41 Est GFR (MDRD) Af Amer 120 Est GFR (MDRD) Non-Af 99 BUN/Creatinine Ratio 4.2 L Glucose 96 Calcium 8.3 L Magnesium 2.0 Troponin I High Sens 3 Radiography Diagnostic Testin view chest x-ray as interpreted by the emergency medicine physician reveals noacute infiltrate pneumothorax pleural effusion or widening of the mediastinum Discharge Plan Triage Chief Complaint: Upper Extremity Injury ED Provider: Major Mejia Dx/Rx/DC Orders Clinical Impression: Nonspecific chest pain, Pain of right upper extremity Instructions: ED Chest Pain, Uncertain Cause Prescriptions: No Action haloperidol 5 MG tablet 5 mg PO PRN PRN (Reason: Anxiety) dronabinol [Marinol] 5 MG capsule 5 mg PO BID sertraline 100 MG tablet 150 mg PO DAILY metronidazole 500 MG tablet 500 mg PO Q8H Qty: 30 0RF promethazine [Promethegan] 25 mg suppository 25 mg RECTAL Q6H PRN PRN (Reason: Nausea) Qty: 10 0RF promethazine 25 mg tablet 25 mg PO Q6H PRN (Reason: nausea and vomiting) Qty: 10 0RF dicyclomine 20 mg tablet 20 mg PO TID Qty: 30 0RF promethazine [promethazine] 25 mg tablet 25 mg PO Q6H PRN PRN (Reason: Nausea) Qty: 20 0RF ondansetron [ondansetron] 4 mg tablet,disintegrating 4 mg PO Q8H PRN PRN (Reason: Nausea) Qty: 10 0RF dicyclomine 10 mg capsule 20 mg PO TIDAC Qty: 20 0RF potassium chloride 20 mEq tablet extended release 20 meq PO BID Qty: 14 0RF dicyclomine 20 mg tablet 20 mg PO TID Qty: 14 0RF promethazine 25 mg tablet 25 mg PO TID PRN (Reason: nausea and vomiting) Qty: 14 0RF amoxicillin-pot clavulanate 875-125 mg tablet 1 tab PO BID Qty: 20 0RF [facility] Dennis [Primary Care Provider] - Disposition Disposition: Home, Self Care What to do if you have Problems For any increased pain, shortness of breath, bleeding, nausea or vomiting, chestpain, or any unexpected problems, contact your Primary Care Provider. Call [facility] ([phone]) or report to the closest Emergency Room. Call 911 if necessary. 06/05/23 0637 <Electronically signed by Major Mejia DO> Cosigner Signature (if applicable): CC: [facility] ~ Signed [facility] Work Phone: Evaluation + Plan note No data available for this section [facility] Evaluation noteNo assessment information available [facility] Work Phone: Evaluation note* Diagnosis History of delivery- Primary [facility] Diagnosis Hyperglycemia in ([facility] Primary Hyperglycemia in ([facility]) Insulin controlled gestational diabetes mellitus (GDM) in second trimester ([facility]) Gestational hypertension, second trimester ([facility]) Gestational hypertension, second trimester ([facility]) Insulin controlled gestational diabetes mellitus (GDM) in second trimester ([facility]) documented in this encounter [facility] Work Phone: Evaluation note* Diagnosis Hyperglycemia in ([facility])- Primary Insulin controlled gestational diabetes mellitus (GDM) in second trimester ([facility]) Gestational hypertension, second trimester ([facility]) 26 weeks gestation of ([facility]) Screening, , for anatomic survey ([facility]) Encounter for anatomic survey Encounter for follow-up ultrasound of anatomy Gestational diabetes requiring insulin ([facility]) Abnormal maternal glucose tolerance, complicating , childbirth, or the puerperium, unspecified as to episode of care AMA (advanced maternal age) multigravida 35+ ([facility]) Obesity affecting ([facility]) documented in this encounter [facility] Work Phone: Evaluation note* Diagnosis Gestational hypertension, second trimester ([facility])- Primary 26 weeks gestation of ([facility])- Primary Insulin controlled gestational diabetes mellitus (GDM) in second trimester ([facility]) Gestational hypertension, second trimester ([facility]) Hyperglycemia in ([facility]) Crohn's disease with complication, unspecified gastrointestinal tract location Depression affecting in second trimester, antepartum ([facility]) Anxiety during in second trimester, antepartum ([facility]) headache in second trimester ([facility])- Primary Gestational hypertension, second trimester ([facility]) Insulin controlled gestational diabetes mellitus (GDM) in second trimester ([facility]) 27 weeks gestation of ([facility]) Gastroesophageal reflux disease without esophagitis Esophageal reflux Crohn's disease with complication, unspecified gastrointestinal tract location Gestational hypertension, second trimester ([facility]) documented in this encounter [facility] Work Phone: Evaluation note* Diagnosis 26 weeks gestation of ([facility])- Primary Insulin controlled gestational diabetes mellitus (GDM) in second trimester ([facility]) Gestational hypertension, second trimester ([facility]) Hyperglycemia in ([facility]) Crohn's disease with complication, unspecified gastrointestinal tract location Depression affecting in second trimester, antepartum ([facility]) Anxiety during in second trimester, antepartum ([facility]) headache in second trimester ([facility])- Primary Gestational hypertension, second trimester ([facility]) Insulin controlled gestational diabetes mellitus (GDM) in second trimester ([facility]) 27 weeks gestation of ([facility]) Gastroesophageal reflux disease without esophagitis Esophageal reflux Crohn's disease with complication, unspecified gastrointestinal tract location Screening, , for anatomic survey ([facility]) Encounter for anatomic survey Gestational hypertension ([facility]) Unspecified hypertension complicating , childbirth, or the puerperium, unspecified as to episode of care Obesity affecting ([facility]) Gestational diabetes mellitus (GDM) AMA (advanced maternal age) multigravida 35+ ([facility]) documented in this encounter [facility] Work Phone: Evaluation note* Diagnosis 26 weeks gestation of ([facility])- Primary Insulin controlled gestational diabetes mellitus (GDM) in second trimester ([facility]) Gestational hypertension, second trimester ([facility]) Hyperglycemia in ([facility]) Crohn's disease with complication, unspecified gastrointestinal tract location Depression affecting in second trimester, antepartum ([facility]) Anxiety during in second trimester, antepartum ([facility]) headache in second trimester ([facility])- Primary Gestational hypertension, second trimester ([facility]) Insulin controlled gestational diabetes mellitus (GDM) in second trimester ([facility]) 27 weeks gestation of ([facility]) Gastroesophageal reflux disease without esophagitis Esophageal reflux Crohn's disease with complication, unspecified gastrointestinal tract location Screening, , for anatomic survey ([facility]) Encounter for anatomic survey Obesity affecting in third trimester ([facility]) Gestational diabetes mellitus (GDM) requiring insulin ([facility]) Gestational hypertension w/o significant proteinuria in 3rd trimester ([facility]) 28 weeks gestation of ([facility])- Primary Gestational hypertension, second trimester ([facility]) Insulin controlled gestational diabetes mellitus (GDM) in second trimester ([facility]) Anxiety during in second trimester, antepartum ([facility]) History of HELLP syndrome, currently ([facility]) with other poor obstetric history Depression affecting in second trimester, antepartum ([facility]) History of loop electrosurgical excision procedure (LEEP) of cervix affecting in second trimester ([facility]) headache in second trimester ([facility]) Headache in , antepartum ([facility]) psychosis (Multi) Mental disorders of mother, complicating , childbirth, or the puerperium, unspecified as to episode of care documented in this encounter [facility] Work Phone: Evaluation note* Diagnosis 26 weeks gestation of ([facility])- Primary Insulin controlled gestational diabetes mellitus (GDM) in second trimester ([facility]) Gestational hypertension, second trimester ([facility]) Hyperglycemia in ([facility]) Crohn's disease with complication, unspecified gastrointestinal tract location Depression affecting in second trimester, antepartum ([facility]) Anxiety during in second trimester, antepartum ([facility]) headache in second trimester ([facility])- Primary Gestational hypertension, second trimester ([facility]) Insulin controlled gestational diabetes mellitus (GDM) in second trimester ([facility]) 27 weeks gestation of ([facility]) Gastroesophageal reflux disease without esophagitis Esophageal reflux Crohn's disease with complication, unspecified gastrointestinal tract location 28 weeks gestation of ([facility])- Primary Gestational hypertension, second trimester ([facility]) Insulin controlled gestational diabetes mellitus (GDM) in second trimester ([facility]) Anxiety during in second trimester, antepartum ([facility]) History of HELLP syndrome, currently ([facility]) with other poor obstetric history Depression affecting in second trimester, antepartum ([facility]) History of loop electrosurgical excision procedure (LEEP) of cervix affecting in second trimester ([facility]) headache in second trimester ([facility]) Headache in , antepartum ([facility]) psychosis (Multi) Mental disorders of mother, complicating , childbirth, or the puerperium, unspecified as to episode of care Gestational hypertension, second trimester ([facility]) Insulin controlled gestational diabetes mellitus (GDM) in third trimester ([facility]) Gestational hypertension w/o significant proteinuria in 3rd trimester ([facility]) Gestational hypertension, third trimester ([facility])- Primary Insulin controlled gestational diabetes mellitus (GDM) in third trimester ([facility]) 29 weeks gestation of ([facility]) Depression affecting in second trimester, antepartum ([facility]) headache in third trimester ([facility]) Polyhydramnios in third trimester complication, single or unspecified fetus ([facility]) documented in this encounter [facility] Work Phone: Evaluation note* Diagnosis 26 weeks gestation of ([facility])- Primary Insulin controlled gestational diabetes mellitus (GDM) in second trimester ([facility]) Gestational hypertension, second trimester ([facility]) Hyperglycemia in ([facility]) Crohn's disease with complication, unspecified gastrointestinal tract location Depression affecting in second trimester, antepartum ([facility]) Anxiety during in second trimester, antepartum ([facility]) headache in second trimester ([facility])- Primary Gestational hypertension, second trimester ([facility]) Insulin controlled gestational diabetes mellitus (GDM) in second trimester ([facility]) 27 weeks gestation of ([facility]) Gastroesophageal reflux disease without esophagitis Esophageal reflux Crohn's disease with complication, unspecified gastrointestinal tract location 28 weeks gestation of ([facility])- Primary Gestational hypertension, second trimester ([facility]) Insulin controlled gestational diabetes mellitus (GDM) in second trimester ([facility]) Anxiety during in second trimester, antepartum ([facility]) History of HELLP syndrome, currently ([facility]) with other poor obstetric history Depression affecting in second trimester, antepartum ([facility]) History of loop electrosurgical excision procedure (LEEP) of cervix affecting in second trimester ([facility]) headache in second trimester ([facility]) Headache in , antepartum ([facility]) psychosis (Multi) Mental disorders of mother, complicating , childbirth, or the puerperium, unspecified as to episode of care Gestational hypertension, third trimester ([facility])- Primary Insulin controlled gestational diabetes mellitus (GDM) in third trimester ([facility]) 29 weeks gestation of ([facility]) Depression affecting in second trimester, antepartum ([facility]) headache in third trimester ([facility]) Polyhydramnios in third trimester complication, single or unspecified fetus ([facility]) Gestational hypertension, second trimester ([facility]) Insulin controlled gestational diabetes mellitus (GDM) in third trimester ([facility]) Gestational hypertension, third trimester ([facility])- Primary Insulin controlled gestational diabetes mellitus (GDM) in third trimester ([facility]) Depression affecting in third trimester, antepartum ([facility]) 30 weeks gestation of ([facility]) Polyhydramnios in third trimester complication, single or unspecified fetus ([facility]) History of HELLP syndrome, currently ([facility]) with other poor obstetric history History of loop electrosurgical excision procedure (LEEP) of cervix affecting in second trimester ([facility]) headache in third trimester ([facility]) Insulin controlled gestational diabetes mellitus (GDM) in second trimester ([facility]) documented in this encounter [facility] Work Phone: Evaluation note* Diagnosis 26 weeks gestation of ([facility])- Primary Insulin controlled gestational diabetes mellitus (GDM) in second trimester ([facility]) Gestational hypertension, second trimester ([facility]) Hyperglycemia in ([facility]) Crohn's disease with complication, unspecified gastrointestinal tract location Depression affecting in second trimester, antepartum ([facility]) Anxiety during in second trimester, antepartum headache in second trimester ([facility])- Primary Gestational hypertension, second trimester ([facility]) Insulin controlled gestational diabetes mellitus (GDM) in second trimester ([facility]) 27 weeks gestation of ([facility]) Gastroesophageal reflux disease without esophagitis Esophageal reflux Crohn's disease with complication, unspecified gastrointestinal tract location 28 weeks gestation of ([facility])- Primary Gestational hypertension, second trimester ([facility]) Insulin controlled gestational diabetes mellitus (GDM) in second trimester ([facility]) Anxiety during in second trimester, antepartum History of HELLP syndrome, currently ([facility]) with other poor obstetric history Depression affecting in second trimester, antepartum ([facility] History of loop electrosurgical excision procedure (LEEP) of cervix affecting in second trimester headache in second trimester ([facility]) Headache in , antepartum ([facility]) psychosis (Multi) Mental disorders of mother, complicating , childbirth, or the puerperium, unspecified as to episode of care Gestational hypertension, third trimester ([facility])- Primary Insulin controlled gestational diabetes mellitus (GDM) in third trimester ([facility]) 29 weeks gestation of ([facility]) Depression affecting in second trimester, antepartum ([facility]) headache in third trimester ([facility]) Polyhydramnios in third trimester complication, single or unspecified fetus ([facility]) Gestational hypertension, third trimester ([facility])- Primary Insulin controlled gestational diabetes mellitus (GDM) in third trimester ([facility]) Depression affecting in third trimester, antepartum ([facility]) 30 weeks gestation of ([facility]) Polyhydramnios in third trimester complication, single or unspecified fetus ([facility]) History of HELLP syndrome, currently ([facility]) with other poor obstetric history History of loop electrosurgical excision procedure (LEEP) of cervix affecting in second trimester headache in third trimester ([facility]) Insulin controlled gestational diabetes mellitus (GDM) in second trimester ([facility]) Gestational hypertension, second trimester ([facility]) Insulin controlled gestational diabetes mellitus (GDM) in third trimester ([facility]) Gestational hypertension w/o significant proteinuria in 3rd trimester ([facility]) Gestational hypertension, third trimester ([facility])- Primary Insulin controlled gestational diabetes mellitus (GDM) in third trimester ([facility]) 32 weeks gestation of ([facility]) Crohn's disease with complication, unspecified gastrointestinal tract location History of HELLP syndrome, currently ([facility]) with other poor obstetric history Depression affecting in third trimester, antepartum ([facility]) History of loop electrosurgical excision procedure (LEEP) of cervix affecting in second trimester headache in third trimester ([facility]) Polyhydramnios in third trimester complication, single or unspecified fetus ([facility]) documented in this encounter [facility] Work Phone: Evaluation note* Diagnosis 26 weeks gestation of ([facility])- Primary Insulin controlled gestational diabetes mellitus (GDM) in second trimester ([facility]) Gestational hypertension, second trimester ([facility]) Hyperglycemia in ([facility]) Crohn's disease with complication, unspecified gastrointestinal tract location Depression affecting in second trimester, antepartum ([facility]) Anxiety during in second trimester, antepartum headache in second trimester ([facility])- Primary Gestational hypertension, second trimester ([facility]) Insulin controlled gestational diabetes mellitus (GDM) in second trimester ([facility]) 27 weeks gestation of ([facility]) Gastroesophageal reflux disease without esophagitis Esophageal reflux Crohn's disease with complication, unspecified gastrointestinal tract location 28 weeks gestation of ([facility])- Primary Gestational hypertension, second trimester ([facility]) Insulin controlled gestational diabetes mellitus (GDM) in second trimester ([facility]) Anxiety during in second trimester, antepartum History of HELLP syndrome, currently ([facility]) with other poor obstetric history Depression affecting in second trimester, antepartum ([facility]) History of loop electrosurgical excision procedure (LEEP) of cervix affecting in second trimester headache in second trimester ([facility]) Headache in , antepartum ([facility]) psychosis (Multi) Mental disorders of mother, complicating , childbirth, or the puerperium, unspecified as to episode of care Gestational hypertension, third trimester ([facility])- Primary Insulin controlled gestational diabetes mellitus (GDM) in third trimester ([facility]) 29 weeks gestation of ([facility]) Depression affecting in second trimester, antepartum ([facility]) headache in third trimester ([facility]) Polyhydramnios in third trimester complication, single or unspecified fetus ([facility]) Gestational hypertension, third trimester ([facility])- Primary Insulin controlled gestational diabetes mellitus (GDM) in third trimester ([facility]) Depression affecting in third trimester, antepartum ([facility]) 30 weeks gestation of ([facility]) Polyhydramnios in third trimester complication, single or unspecified fetus ([facility]) History of HELLP syndrome, currently ([facility]) with other poor obstetric history History of loop electrosurgical excision procedure (LEEP) of cervix affecting in second trimester headache in third trimester ([facility]) Insulin controlled gestational diabetes mellitus (GDM) in second trimester ([facility]) Gestational hypertension, third trimester ([facility])- Primary Insulin controlled gestational diabetes mellitus (GDM) in third trimester ([facility]) 32 weeks gestation of ([facility]) Crohn's disease with complication, unspecified gastrointestinal tract location History of HELLP syndrome, currently ([facility]) with other poor obstetric history Depression affecting in third trimester, antepartum ([facility]) History of loop electrosurgical excision procedure (LEEP) of cervix affecting in second trimester headache in third trimester ([facility]) Polyhydramnios in third trimester complication, single or unspecified fetus ([facility]) Severe preeclampsia, third trimester ([facility])- Primary Severe preeclampsia, third trimester ([facility]) care following vaginal delivery ([facility]) Depression affecting in third trimester, antepartum ([facility]) Gastroesophageal reflux disease, unspecified whether esophagitis present documented in this encounter [facility] Work Phone: Evaluation note* Diagnosis 26 weeks gestation of ([facility])- Primary Insulin controlled gestational diabetes mellitus (GDM) in second trimester ([facility]) Gestational hypertension, second trimester ([facility]) Hyperglycemia in ([facility]) Crohn's disease with complication, unspecified gastrointestinal tract location Depression affecting in second trimester, antepartum ([facility]) Anxiety during in second trimester, antepartum headache in second trimester ([facility])- Primary Gestational hypertension, second trimester ([facility]) Insulin controlled gestational diabetes mellitus (GDM) in second trimester ([facility]) 27 weeks gestation of ([facility]) Gastroesophageal reflux disease without esophagitis Esophageal reflux Crohn's disease with complication, unspecified gastrointestinal tract location 28 weeks gestation of ([facility])- Primary Gestational hypertension, second trimester ([facility]) Insulin controlled gestational diabetes mellitus (GDM) in second trimester ([facility]) Anxiety during in second trimester, antepartum History of HELLP syndrome, currently ([facility]) with other poor obstetric history Depression affecting in second trimester, antepartum ([facility]) History of loop electrosurgical excision procedure (LEEP) of cervix affecting in second trimester headache in second trimester ([facility]) Headache in , antepartum ([facility]) psychosis (Multi) Mental disorders of mother, complicating , childbirth, or the puerperium, unspecified as to episode of care Gestational hypertension, third trimester ([facility])- Primary Insulin controlled gestational diabetes mellitus (GDM) in third trimester ([facility]) 29 weeks gestation of ([facility]) Depression affecting in second trimester, antepartum ([facility]) headache in third trimester ([facility]) Polyhydramnios in third trimester complication, single or unspecified fetus ([facility]) Gestational hypertension, third trimester ([facility])- Primary Insulin controlled gestational diabetes mellitus (GDM) in third trimester ([facility]) Depression affecting in third trimester, antepartum ([facility]) 30 weeks gestation of ([facility]) Polyhydramnios in third trimester complication, single or unspecified fetus ([facility]) History of HELLP syndrome, currently ([facility]) with other poor obstetric history History of loop electrosurgical excision procedure (LEEP) of cervix affecting in second trimester headache in third trimester ([facility]) Insulin controlled gestational diabetes mellitus (GDM) in second trimester ([facility]) Gestational hypertension, third trimester ([facility])- Primary Insulin controlled gestational diabetes mellitus (GDM) in third trimester ([facility]) 32 weeks gestation of ([facility]) Crohn's disease with complication, unspecified gastrointestinal tract location History of HELLP syndrome, currently ([facility]) with other poor obstetric history Depression affecting in third trimester, antepartum ([facility]) History of loop electrosurgical excision procedure (LEEP) of cervix affecting in second trimester headache in third trimester ([facility]) Polyhydramnios in third trimester complication, single or unspecified fetus ([facility]) Severe preeclampsia, third trimester ([facility])- Primary Insulin controlled gestational diabetes mellitus (GDM) in second trimester ([facility]) documented in this encounter [facility] Work Phone: Evaluation note* Diagnosis 26 weeks gestation of ([facility])- Primary Insulin controlled gestational diabetes mellitus (GDM) in second trimester ([facility]) Gestational hypertension, second trimester ([facility]) Hyperglycemia in ([facility]) Crohn's disease with complication, unspecified gastrointestinal tract location Depression affecting in second trimester, antepartum ([facility]) Anxiety during in second trimester, antepartum headache in second trimester ([facility])- Primary Gestational hypertension, second trimester ([facility]) Insulin controlled gestational diabetes mellitus (GDM) in second trimester ([facility]) 27 weeks gestation of ([facility]) Gastroesophageal reflux disease without esophagitis Esophageal reflux Crohn's disease with complication, unspecified gastrointestinal tract location Gestational hypertension, third trimester ([facility])- Primary Insulin controlled gestational diabetes mellitus (GDM) in third trimester ([facility]) 29 weeks gestation of ([facility]) Depression affecting in second trimester, antepartum ([facility]) headache in third trimester ([facility]) Polyhydramnios in third trimester complication, single or unspecified fetus ([facility]) Gestational hypertension, third trimester ([facility])- Primary Insulin controlled gestational diabetes mellitus (GDM) in third trimester ([facility]) Depression affecting in third trimester, antepartum ([facility]) 30 weeks gestation of ([facility]) Polyhydramnios in third trimester complication, single or unspecified fetus ([facility]) History of HELLP syndrome, currently ([facility]) with other poor obstetric history History of loop electrosurgical excision procedure (LEEP) of cervix affecting in second trimester headache in third trimester ([facility]) Insulin controlled gestational diabetes mellitus (GDM) in second trimester ([facility]) Benign essential HTN- Primary Fatigue, unspecified type Weight gain Other symptoms concerning nutrition, metabolism, and development History of gestational diabetes Personal history of other genital system and obstetric disorders Anemia, unspecified type Screening for hyperlipidemia Screening for lipoid disorders Attention or concentration deficit Leg edema Edema Gastroesophageal reflux disease without esophagitis Esophageal reflux psychosis (Multi) Mental disorders of mother, complicating , childbirth, or the puerperium, unspecified as to episode of care Moderate depressive disorder Anxiety Anxiety state, unspecified documented in this encounter [facility] Work Phone: Evaluation note* Diagnosis 26 weeks gestation of ([facility])- Primary Insulin controlled gestational diabetes mellitus (GDM) in second trimester ([facility]) Gestational hypertension, second trimester ([facility]) Hyperglycemia in ([facility]) Crohn's disease with complication, unspecified gastrointestinal tract location Depression affecting in second trimester, antepartum ([facility]) Anxiety during in second trimester, antepartum headache in second trimester ([facility])- Primary Gestational hypertension, second trimester ([facility]) Insulin controlled gestational diabetes mellitus (GDM) in second trimester ([facility]) 27 weeks gestation of ([facility]) Gastroesophageal reflux disease without esophagitis Esophageal reflux Crohn's disease with complication, unspecified gastrointestinal tract location Gestational hypertension, third trimester ([facility])- Primary Insulin controlled gestational diabetes mellitus (GDM) in third trimester ([facility]) 29 weeks gestation of ([facility]) Depression affecting in second trimester, antepartum ([facility]) headache in third trimester ([facility]) Polyhydramnios in third trimester complication, single or unspecified fetus ([facility]) Gestational hypertension, third trimester ([facility])- Primary Insulin controlled gestational diabetes mellitus (GDM) in third trimester ([facility]) Depression affecting in third trimester, antepartum ([facility]) 30 weeks gestation of ([facility]) Polyhydramnios in third trimester complication, single or unspecified fetus ([facility]) History of HELLP syndrome, currently ([facility]) with other poor obstetric history History of loop electrosurgical excision procedure (LEEP) of cervix affecting in second trimester headache in third trimester ([facility]) Insulin controlled gestational diabetes mellitus (GDM) in second trimester ([facility]) Encounter for visit- Primary History of gestational diabetes Personal history of other genital system and obstetric disorders Counseling for initiation of control method History of pre-eclampsia Bilateral lower extremity edema documented in this encounter [facility] Work Phone: Evaluation note* Diagnosis 26 weeks gestation of ([facility])- Primary Insulin controlled gestational diabetes mellitus (GDM) in second trimester ([facility]) Gestational hypertension, second trimester ([facility]) Hyperglycemia in ([facility]) Crohn's disease with complication, unspecified gastrointestinal tract location Depression affecting in second trimester, antepartum ([facility]) Anxiety during in second trimester, antepartum headache in second trimester ([facility])- Primary Gestational hypertension, second trimester ([facility]) Insulin controlled gestational diabetes mellitus (GDM) in second trimester ([facility]) 27 weeks gestation of ([facility]) Gastroesophageal reflux disease without esophagitis Esophageal reflux Crohn's disease with complication, unspecified gastrointestinal tract location Gestational hypertension, third trimester ([facility])- Primary Insulin controlled gestational diabetes mellitus (GDM) in third trimester ([facility]) 29 weeks gestation of ([facility]) Depression affecting in second trimester, antepartum ([facility]) headache in third trimester ([facility]) Polyhydramnios in third trimester complication, single or unspecified fetus ([facility]) Gestational hypertension, third trimester ([facility])- Primary Insulin controlled gestational diabetes mellitus (GDM) in third trimester ([facility]) Depression affecting in third trimester, antepartum ([facility]) 30 weeks gestation of ([facility]) Polyhydramnios in third trimester complication, single or unspecified fetus ([facility]) History of HELLP syndrome, currently ([facility]) with other poor obstetric history History of loop electrosurgical excision procedure (LEEP) of cervix affecting in second trimester headache in third trimester ([facility]) Insulin controlled gestational diabetes mellitus (GDM) in second trimester ([facility]) Encounter for visit- Primary History of gestational diabetes Personal history of other genital system and obstetric disorders Counseling for initiation of control method History of pre-eclampsia Bilateral lower extremity edema Type 2 diabetes mellitus without complication, with long-term current use of insulin- Primary Benign essential HTN Other insomnia Healthcare maintenance Hypomagnesemia Disorders of magnesium metabolism documented in this encounter [facility] Work Phone: Hospital Discharge instructions Additional Instructions CT scan negative. Labs are all stable. Hemoglobin 12.6. Monitor symptoms. Follow-up with GI as an outpatient. Return if any worsening symptoms.[facility] Work Phone: Hospital Discharge instructions* Attachments The following attachments cannot be sent through Care Everywhere. * Managing acute pain at home (Malian) * Deciding to breastfeed ([place]alian) * Gestational diabetes ([place]) [facility]* Attachments The following attachments cannot be sent through Care Everywhere. * Managing acute pain at home ([place]alian) * Deciding to breastfeed (Malian) * Gestational diabetes ([place]) [facility]charge [facility]* Attachments The following attachments cannot be sent through Care Everywhere. * Managing acute pain at home ([place]alian) * Deciding to breastfeed ([place]alian) * Gestational diabetes ([place]) [facility]* Attachments The following attachments cannot be sent through Care Everywhere. * Managing acute pain at home ([place]alian) * Deciding to breastfeed (Malian) * Gestational diabetes ([place]) [facility]charge [facility]* Attachments The following attachments cannot be sent through Care Everywhere. * Managing acute pain at home ([place]alian) * Deciding to breastfeed (Malian) * Gestational diabetes ([place]) [facility]: [facility]charge [facility]* Attachments The following attachments cannot be sent through Care Everywhere. * Managing acute pain at home ([place]alian) * Deciding to breastfeed (Malian) * Gestational diabetes ([place]) [facility]: [facility]charge [facility]* Attachments The following attachments cannot be sent through Care Everywhere. * Managing acute pain at home ([place]alian) * Deciding to breastfeed (Malian) * Gestational diabetes ([place]) [facility] Work [facility]: [facility] Discharge [facility]* Attachments The following attachments cannot be sent through Care Everywhere. * Managing acute pain at home (Malian) * Deciding to breastfeed (Malian) * Gestational diabetes ([place]) [facility] Work [facility]: reason for visit Narrative* Imaging (Routine) - Pending Review Specialty Diagnoses / Procedures Referred By Contac t Referred To Contact Radiology Diagnoses Encounter for follow-up ultrasound of anatomy Gestational diabetes requiring insulin ([facility]) AMA (advanced maternal age) multigravida 35+ ([facility]) Obesity affecting ([facility]) Procedures US OB follow UP transabdominal approach US biophysical [place] [id number] [place] [address] Phone: tel: fax: Referral ID Status Reason Start Date Expiration Date Visits Requested Visits Authorized [id number] Pending Review Perform Procedure 12/25/2024 12/25/2025 1 1 [facility] Work Phone: reason for visit Narrative* Imaging (Routine) - Pending Review Specialty Diagnoses / Procedures Referred By Britta pathak Referred To Contact Radiology Diagnoses Gestational hypertension ([facility]) Obesity affecting ([facility]) Gestational diabetes mellitus (GDM) AMA (advanced maternal age) multigravida 35+ ([facility]) Procedures US OB limited 1+ fetuses [place] [address] [place] [address] Phone: tel: fax: Referral ID Status Reason Start Date Expiration Date Visits Requested Visits Authorized [id number] Pending Review Perform Procedure 12/23/2024 12/23/2025 1 1 [facility] Work Phone: reason for visit Narrative* Imaging (Routine) - Pending Review Specialty Diagnoses / Procedures Referred By Contac t Referred To Contact Radiology Diagnoses Obesity affecting in third trimester ([facility]) Gestational diabetes mellitus (GDM) requiring insulin ([facility]) Gestational hypertension w/o significant proteinuria in 3rd trimester (HHS-HCC) Procedures US OB follow UP transabdominal approach US biophysical profile [place] [address] [place] [address] Phone: tel: fax: Referral ID Status Reason Start Date Expiration Date Visits Requested Visits Authorized [id number] Pending Review Perform Procedure 01/15/2025 01/15/2026 1 1 [facility] Work Phone: Recwqe for visit Narrative* Imaging (Routine) - Pending Review Specialty Diagnoses / Procedures Referred By Contac t Referred To Contact Radiology Diagnoses Insulin controlled gestational diabetes mellitus (GDM) in third trimester (HHS-HCC) Gestational hypertension w/o significant proteinuria in 3rd trimester (HHS-HCC) Procedures US OB limited 1+ fetuses US biophysical profile wo non stress testing Jose Guadalupe Gupta MD [address] [facility] [place] [address] Phone: tel: fax: Referral ID Status Reason Start Date Expiration Date Visits Requested Visits Authorized [id number] Pending Review Perform Procedure 01/09/2025 01/09/2026 1 1 [facility] Work Phone: reason for visit Narrative* Imaging (Routine) - Pending Review Specialty Diagnoses / Procedures Referred By Contac t Referred To Contact Radiology Diagnoses Gestational hypertension, second trimester (HHS-HCC) Insulin controlled gestational diabetes mellitus (GDM) in third trimester (HHS-HCC) Procedures US OB limited 1+ fetuses US biophysical profile wo non stress testing Jose Guadalupe Gupta MD [address] [facility] [place] [address] Phone: tel: fax: Referral ID Status Reason Start Date Expiration Date Visits Requested Visits Authorized [id number] Pending Review Perform Procedure 01/09/2025 01/09/2026 1 1 [facility] Work Phone: reason for visit Narrative* Imaging (Routine) - Pending Review Specialty Diagnoses / Procedures Referred By Contac t Referred To Contact Radiology Diagnoses Insulin controlled gestational diabetes mellitus (GDM) in third trimester (HHS-HCC) Gestational hypertension w/o significant proteinuria in 3rd trimester (HHS-HCC) Procedures US OB follow UP transabdominal approach US biophysical profile wo non stress testing Jose Guadalupe Gupta MD [address] [place] [address] Phone: tel: fax: Referral ID Status Reason Start Date Expiration Date Visits Requested Visits Authorized [id number] Pending Review Perform Procedure 01/09/2025 01/09/2026 1 1 [facility] Work Phone: Summary Purpose Family History No Family History Records FoundNo Family History Records FoundNo Family History Records FoundNo Family History Records FoundNo Family History Records FoundNo Family History Records FoundNo Family History Records FoundNo Family History Records FoundNo Family History Records FoundNo Family History Records FoundNo Family History Records FoundNo Family History Records FoundNo Family History Records FoundNo Family History Records FoundNo Family History Records FoundNo Family History Records FoundNo Family History Records FoundNo Family History Records FoundNo Family History Records FoundNo Family History Records FoundNo Family History Records FoundNo Family History Records Found Advance Directives No Advanced Directives Records Found Date Activated Date Inactivated Comments 02/13/2025 5:17 AM Question Answer Comments Plan of Care: Code Status Discussion Not Compl eted Decision Maker: Provider Rationale: Patient condition does not warra nt discussion Date Activated Date Inactivated Comments 02/11/2025 8:27 PM 02/13/2025 5:17 AM Question Answer Comments Plan of Care: Code Status Discussion Not Compl eted Decision Maker: Provider Rationale: Patient condition does not warra nt discussion Date Activated Date Inactivated Comments 12/23/2024 6:56 PM 02/08/2025 7:24 PM Question Answer Comments Plan of Care: Code Status Discussion Not Compl eted Decision Maker: Provider Rationale: Patient condition does not warra nt discussion Advance Directive Response Recorded Date/ Time Living Will No August 18 4:21pm Power of Food And Nutrition Professor No August 18, 2022 4:21pm Advance Directive Response Recorded Date/ Time Living Will No October 26 10:59am Power of Food And Nutrition Professor No October 26, 2022 10:59am Advance Directive Response Recorded Date/ Time Living Will No December 14 9:19pm Power of Food And Nutrition Professor No December 14, 2022 9:19pm Advance Directive Response Recorded Date/ Time Living Will No January 21, 2023 4:03pm Power of Food And Nutrition Professor No January 21 4:03pm Advance Directive Response Recorded Date/ Time Living Will No June 05, 2023 5:42am Power of Food And Nutrition Professor No June 05 5:42am Advance Directive Response Recorded Date/ Time Living Will No October 25, 4:32pm Power of Food And Nutrition Professor No October 25, 2023 4:32pm Advance Directive Response Recorded Date/ Time Living Will No November 17 2:59am Power of Food And Nutrition Professor No November 17, 2023 2:59am Advance Directive Response Recorded Date/ Time Living Will No December 05 7:53am Power of Food And Nutrition Professor No December 05, 2023 7:53am Advance Directive Response Recorded Date/ Time Living Will No February 22, 2024 3:50pm Power of Food And Nutrition Professor No February 21 3:50pm Date Activated Date Inactivated Comments 12/23/2024 6:56 PM Date Activated Date Inactivated Comments 12/23/2024 6:56 PM Question Answer Comments Plan of Care: Code Status Discussion Not Compl eted Decision Maker: Provider Rationale: Patient condition does not warra nt discussion Date Activated Date Inactivated Comments 02/13/2025 5:17 AM Date Activated Date Inactivated Comments 02/11/2025 8:27 PM 02/13/2025 5:17 AM Question Answer Comments Plan of Care: Code Status Discussion Not Compl eted Decision Maker: Provider Rationale: Patient condition does not warra nt discussion Date Activated Date Inactivated Comments 12/23/2024 6:56 PM 02/08/2025 7:24 PM Question Answer Comments Plan of Care: Code Status Discussion Not Compl eted Decision Maker: Provider Rationale: Patient condition does not warra nt discussion Hospital Course * Arianne Vargas MD - 09/08/2018 2:05 PM EST Formatting of this note may be different from the original. DISCHARGE SUMMARY Patient: Dayna Steward Account: [id number] Admitted: 09/03/2018 Discharge Date/Time: No discharge date for patient encounter. Clinical Summary [facility] [place] Dayna Steward Admitted: 09/03/2018 Discharge Date: 09/08/18 Clinical Summary Dayna Tinsley is a 27 y.o. female patient of Freddie Tinoco PA-C with history of Crohn's, RA presented with acute pyelonephritis 1. Sepsis due to Acute pyelonephritis: urine culture 08/[address] abdomen (09/03) with bilateral perinephric stranding and hydronephrosis, no calculi. IV ancef based on recent cultures. Unclear cause for hydronephrosis (?reflux, passed stone), consulted urology. Per Dr Lindsey appears to have bilat pyelonephritis. Will follow up out patient. Continue antibiotics for now. Blood cultures no growth to date. Urine cx not done this admission. No surgical intervention. ID following as well, fevers defervescd. Plan discharge 09/08, on omnicef per ID 2. Pneumonia-CXR suggestive pneumonia, home on omnicef. Not sure what bacteria, and present on admission. Follow up CXR in 3 to 4 weeks. 3. Diarrhea: reported history of 6-7 episodes of C diff. Stool for C diff negative. Improved, no diarrhea now. 4. Acute kidney injury: creat at 0.7 (05/2017), at 1.19 on admission. Due to volume depletion and sepsis. IV fluids and IV antibiotics. Improved. 5. Hyponatremia: likely due to N/V and volume depletion. Isotonic saline. Improved to 136 6. Anemia, unspecified: Hgb 10.6 on admission, has been 12-13 over past year. No signs of active bleeding. Outpatient follow up. 7. Crohn's disease: follows at [facility]. CT abd (09/03) without signs of exacerbation. Procedures: Allergies: Flagyl [metronidazole hcl]; Penicillins; Solu-cortef [hydrocortisone sod succinate]; and Versed [midazolam] Disposition: Home Condition at Discharge: good Discharge Medications Current Discharge Medication List START taking these medications Details benzonatate (TESSALON) 100 MG capsule Take 1 (one) capsule (100 mg total) by mouth 3 (three) times a day as needed for cough. Qty: 20 capsule, Refills: 0 cefdinir (OMNICEF) 300 MG capsule Take 1 (one) capsule (300 mg total) by mouth every 12 (twelve) hours for 5 days. Qty: 10 capsule, Refills: 0 HYDROcodone-acetaminophen (NORCO) 5-325 mg per tablet Take 1 (one) tablet by mouth every 4 (four) hours as needed (. Qty: 20 tablet, Refills: 0 Associated Diagnoses: Acute pyelonephritis; Crohn's disease of small and large intestines with complication (HCC) CONTINUE these medications which have NOT CHANGED Details ARIPiprazole (ABILIFY) 5 MG tablet Take 5 mg by mouth daily. dicyclomine (BENTYL) 20 mg tablet Take 20 mg by mouth 3 (three) times a day before meals dronabinol (MARINOL) 5 MG capsule Take 5 mg by mouth 3 (three) times a day as needed (nausea). Refills: 0 DULoxetine (CYMBALTA) 60 MG capsule Take 60 mg by mouth daily. haloperidol (HALDOL) 5 MG tablet Take 5 mg by mouth 2 (two) times a day. QUEtiapine (SEROQUEL) 200 MG tablet Take 200 mg by mouth 2 (two) times a day. PNV NO.122/IRON/FOLIC ACID ( MULTI ORAL) Take 1 tablet by mouth daily promethazine (PHENERGAN) 25 MG suppository Insert 25 mg into the rectum daily as needed for nausea. Refills: 0 STOP taking these medications sulfamethoxazole-trimethoprim (BACTRIM DS,SEPTRA DS) 800-160 mg per tablet Comments: Reason for Stopping: Physician(s) Follow Up: Raghu Lindsey MD [address] [place] [address] Follow up You have been scheduled to followup with LILI Barroso at our [facility] office to discuss UTI prevention for 10/02/18 at 1:45pm. Arrive at 1:15pm. Please bring insurance card and photo ID. Freddie Tinoco PA-C [address] [place] [id number] Schedule an appointment as soon as possible for a visit in 1 week(s) [facility] [address] [place] [id number] Follow up call with questions related to this visit Discharge Instructions: Diet-heart healthy Activity-as tolerated Wound Care- Follow up Labwork/ imaging- Patient instructions, including activity, were given to the patient/family at discharge. Time spent on discharge: > 30 minutes Completed by: Arianne Vargas on 09/08/18, 2:06 PM in this encounter History of Present Illness * Arianne Vargas MD - 09/08/2018 10:48 AM EST DAILY PROGRESS NOTE Assessment and Plan Dayna Tinsley is a 27 y.o. female patient of Freddie Tinoco PA-C with history of Crohn's, RA presented with acute pyelonephritis 1. Sepsis due to Acute pyelonephritis: urine culture 08/[address] abdomen (09/03) with bilateral perinephric stranding and hydronephrosis, no calculi. IV ancef based on recent cultures. Unclear cause for hydronephrosis (?reflux, passed stone), consulted urology. Per Dr Lindsey appears to have bilat pyelonephritis. Will follow up out patient. Continue antibiotics for now. Blood cultures no growth to date. Urine cx not done this admission. No surgical intervention. ID following as well, fevers defervescd. Plan discharge 09/08, on omnicef per ID 2. Pneumonia-CXR suggestive pneumonia, home on omnicef. Not sure what bacteria, and present on admission. Follow up CXR in 3 to 4 weeks. 3. Diarrhea: reported history of 6-7 episodes of C diff. Stool for C diff negative. Improved, no diarrhea now. 4. Acute kidney injury: creat at 0.7 (05/2017), at 1.19 on admission. Due to volume depletion and sepsis. IV fluids and IV antibiotics. Improved. 5. Hyponatremia: likely due to N/V and volume depletion. Isotonic saline. Improved to 136 6. Anemia, unspecified: Hgb 10.6 on admission, has been 12-13 over past year. No signs of active bleeding. Outpatient follow up. 7. Crohn's disease: follows at [facility]. CT abd (09/03) without signs of exacerbation. Quality Measures DVT Prophylaxis: lovenox Taveras Catheter: no Disposition Discharge Location: Estimated Discharge Date: 09/08 Subjective Feels a lot better Review of Systems: The following system(s) were reviewed: All other systems reviewed and negative other than HPI. Objective BP 118/73 (BP Location: Right arm, Patient Position: Lying) Pulse 66 Temp 98.9 ?F (37.2 ?C) (Oral) Resp 14 SpO2 97% ? Unknown Physical Examination: General appearance: alert, cooperative, in no acute distress. Head/Neck: Head- normocephalic. Neck- supple, non-tender, without lymphadenopathy Cardiovascular: regular rate and rhythm; normal S1, S2; no murmurs, rubs, clicks or gallops; no peripheral edema. Respiratory: lungs clear to auscultation; without wheezes, rales or rhonchi Abdomen: soft, mildly tender, non-distended; positive bowel sounds Neurological: alert, oriented, normal speech; no focal findings or movement disorder noted Musculoskeletal: no significant deformity or tenderness to palpation Skin: normal coloration, texture and turgor; no lesions or eruptions Results/Medications Reviewed 09/08/18 10:48 AM: Laboratory, Radiology, Cardiology and Medications * Alcides Das MD - 09/08/2018 10:20 AM EST Formatting of this note may be different from the original. INFECTIOUS DISEASES DAILY PROGRESS NOTE Patient Name: Dayna Tinsley MR #: [id number] Assessment and Plan: 1. Pyelonephritis - E coli from urine from 08/31. Ancef reasonable. May take a few days to defervesce. 2. Dyspnea - Question of pneumonia. 3. Crohn's - Per primary. 4. RA - Per primary. Disposition Comments: PO Omnicef for d/c Subjective/Objective: Perpetual Assessment: Dayna Tinsley is a 27 y.o. female on hospital day 5 with pyelo. Chief Complaint: Pyelonephritis HPI: Afebrile. Feeling better. Review of Systems: The following system(s) were reviewed: Constitutional, GI Physical Examination: BP 118/73 (BP Location: Right arm, Patient Position: Lying) Pulse 66 Temp 98.9 ?F (37.2 ?C) (Oral) Resp 14 SpO2 97% ? Unknown General: NAD; Alert and oriented x3 Lungs: No increased respiratory effort Cardiovascular: No edema Skin: No rashes or nodules; normal turgor Psych: Mood and affect appropriate Results/Medications Reviewed: Current Facility-Administered Medications Medication Dose Route Frequency Provider Last Rate Last Dose acetaminophen (TYLENOL) suppository 650 mg 650 mg Rectal Q6H PRN Arianne Vargas MD 650 mg at 09/04/18 1243 acetaminophen (TYLENOL) tablet 650 mg 650 mg Oral Q6H PRN Arianne Vargas MD 650 mg at 09/08/18 0105 ARIPiprazole (ABILIFY) tablet 5 mg 5 mg Oral Daily Chase Parham MD 5 mg at 09/08/18 0927 benzonatate (TESSALON) capsule 100 mg 100 mg Oral TID PRN Arianne Vargas MD 100 mg at 09/06/18 0841 cefdinir (OMNICEF) capsule 300 mg 300 mg Oral Q12H [facility] Arianne Vargas MD dronabinol (MARINOL) capsule 5 mg 5 mg Oral Q8H PRN Chase Parham MD 5 mg at 09/05/18 1649 DULoxetine (CYMBALTA) DR capsule 60 mg 60 mg Oral Daily Chase Parham MD 60 mg at 09/08/18 0928 enoxaparin (LOVENOX) syringe 40 mg 40 mg Subcutaneous Daily Chase Parham MD 40 mg at 09/08/18 0927 guaiFENesin (ROBITUSSIN) 100 mg/5 mL syrup 200 mg 200 mg Oral Q4H PRN Arianne Vargas MD HYDROcodone-acetaminophen (NORCO) 5-325 mg per tablet 1 tablet 1 tablet Oral Q4H PRN Chase Parham MD 1 tablet at 09/08/18 0510 ipratropium-albuterol (DUO-NEB) 0.5-2.5 mg/3 ml nebulizer solution 3 mL 3 mL Inhalation Q6H [facility] Noa Soria MD 3 mL at 09/08/18 0816 naloxone (NARCAN) injection 0.1 mg 0.1 mg Intravenous PRN Chase Parham MD naloxone (NARCAN) injection 0.4 mg 0.4 mg Intravenous PRN Chase Parham MD prochlorperazine (COMPAZINE) injection 5 mg 5 mg Intravenous Q4H Felecia Arteaga CNP 5 mg at 09/08/18 0927 QUEtiapine (SEROQUEL) tablet 200 mg 200 mg Oral BID Chase Parham MD 200 mg at 09/08/18 0927 sodium chloride (PF) (NS) flush 5 mL 5 mL Intravenous PRN Joy Capellan PA-C traZODone (DESYREL) tablet 50 mg 50 mg Oral Nightly PRN Chase Parham MD Lab Results Component Value Date WBC 4.66 09/05/2018 HGB 9.3 (L) 09/05/2018 HCT 30.9 (L)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 MDiv Resident Printer Helper, Pastoral Care [facility] * Harriet Bustamante, RN - 09/04/2018 8:32 AM EDT COMPLEX DISCHARGE Date: 09/04/2018 Time: 8:32 AM Patient Name: Dayna Tinsley Date of : 1990 Sex: Female Legal Documentation Resuscitation Status: Resuscitate Discharge Plan Shared UM/CC and RN Source of Information: Chart Contact Phone Number: carrie [place], Living Arrangements: Spouse/significant other Support Systems: Spouse/significant other Type of Residence: Private residence Prior to Admission Home Care Services: No Current Home Equipment: Walker Insurance Coverage for Prescriptions: Yes Anticipated Discharge Plan Anticipated HME: Undetermined Anticipated Home Care Needs: None Potential for Readmission Potential for Readmission: No Discharge Readiness Expected Discharge Date: 09/05/18 Barriers to Discharge: Other (Comment) (determination of needs) PCP: Freddie Tinoco PA-C Admit with acute pyelonephritis. ID c/s pending. Urology c/s pending. [facility] will follow for possibledischarge needs. in this encounter* Micheline Nation LPN - 10/07/2018 12:45 PM EST Pt is concerned is . Reports pelvic pain today. Pain is a 5. Describes this as feeling likeearly cramping.States has taken 5 faint positive tests at home. Currently has Lyletta IUD. Pt would like to have IUD pulled if not already. Requesting test today. Negative results.Pt is also here to follow up on recent labs and rash recheck. Continues to applypowder to rash in abdominal folds and states this rash has been improving since using the powder. in this encounter Assessments Diagnosis Acute pyelonephritis - Prima ry Acute pyelonephritis without lesion of renal medullary necrosis Nausea and vomiting, intract ability of vomiting not specified, unspecified vomiting type Crohn's disease of small and large intestines with complication (HCC) Diagnosis Pelvic pain - Primary Unspecified symptom associated with female genital organs PCOS (polycystic ovarian syn drome) Polycystic ovaries Amenorrhea Absence of menstruation Chief Complaint and Reason for Visit Chief Complaint RECTAL BLEED Chief Complaint RECTAL BLEED PE NON DOT DRUG SCREEN/CHAIDEZ FOODS GENERAL ILLNESS Chief Complaint RECTAL BLEED PE NON DOT DRUG SCREEN/CHAIDEZ FOODS GENERAL ILLNESS ABD PAIN, CHEST, FLANK, URINARY FREQUENCY Chief Complaint PE NON DOT DRUG SCRE EN/CHAIDEZ FOODS GENERAL ILLNESS ABD PAIN, CHEST, FLANK, URINARY FREQUENCY ABDOMINAL PAIN Chief Complaint MULTIPLE COMPLAINTS right arm pain Chief Complaint abd pain, chrons VOMITING Chief Complaint abd pain, chrons VOMITING head injury Chief Complaint abd pain, chrons VOMITING head injury ABD PAIN Chief Complaint abd pain, chrons VOMITING head injury ABD PAIN ABD PAIN Chief Complaint VOMITING head injury ABD PAIN ABD PAIN abd pain, diarrhea Chief Complaint head injury ABD PAIN ABD PAIN abd pain, diarrhea Additional Source Comments INFORMATION SOURCE (unrecogn ized section and content) DATE CREATED AUTHOR 04/30/2018 [facility] DATE CREATED AUTHOR AUTHOR'S ORGANIZ ATION 05/01/2018 [facility] DATE CREATED AUTHOR AUTHOR'S ORGANIZ ATION 08/24/[address] [facility] DATE CREATED AUTHOR AUTHOR'S ORGANIZ ATION 09/06/2018 [facility] DATE CREATED AUTHOR AUTHOR'S ORGANIZ ATION 10/08/2018 [facility] DATE CREATED AUTHOR AUTHOR'S ORGANIZ ATION 10/12/2018 [facility] DATE CREATED AUTHOR AUTHOR'S ORGANIZ ATION 10/13/2018 [facility] DATE CREATED AUTHOR AUTHOR'S ORGANIZ ATION 02/11/2019 [facility] DATE CREATED AUTHOR AUTHOR'S ORGANIZ ATION 04/09/2019 [facility] DATE CREATED AUTHOR AUTHOR'S ORGANIZ ATION 04/11/2019 [facility] DATE CREATED AUTHOR AUTHOR'S ORGANIZ ATION 04/13/2019 [facility] DATE CREATED AUTHOR AUTHOR'S ORGANIZ ATION 10/24/2021 [facility] DATE CREATED AUTHOR AUTHOR'S ORGANIZ ATION 01/12/2023 [facility] DATE CREATED AUTHOR AUTHOR'S ORGANIZ ATION 03/15/2023 [facility] ([place]) DATE CREATED AUTHOR AUTHOR'S ORGANIZ ATION 06/07/2023 [facility] DATE CREATED AUTHOR AUTHOR'S ORGANIZ ATION 11/19/2024 [facility] DATE CREATED AUTHOR AUTHOR'S ORGANIZ ATION 12/11/2024 [facility] DATE CREATED AUTHOR AUTHOR'S ORGANIZ ATION 02/26/2025 [facility] DATE CREATED AUTHOR AUTHOR'S ORGANIZ ATION 03/11/2025 [facility] DATE CREATED AUTHOR AUTHOR'S ORGANIZ ATION 05/02/2025 [facility] DATE CREATED AUTHOR AUTHOR'S ORGANIZ ATION 05/14/2025 [facility] DATE CREATED AUTHOR AUTHOR'S ORGANIZ ATION 05/15/2025 [facility] Reason for Visit (unrecogniz ed section and content) Reason Comments Headache Specialty Diagnoses / Procedures Referred By Controny t Referred To Contact Diagnoses Hyperglycemia in ([facility]-HCC) Procedures Celena Carty, DARKROOM TECHNICIAN-TRAILER RENTAL CLERK [address] [place] [address] Phone: tel: fax: [facility] [address] [place] [address] Phone: tel: Referral ID Status Reason Start Date Expiration Date Visits Re quested Visits Authorized [id number] 1 1 Reason Comments Nausea Emesis Abdominal Pain Status Reason Specialty Diagnoses / Procedures Re ferred By Contact Referred To Contact Diagnoses Acute pyelonephritis Nausea and vomiting, intractability of vomiting not specified, unspecified vomiting type Reason Comments Pelvic Pain Labs Only labs follow up Reason Comments New Patient C/o baby being low a nd it hurts to walk Specialty Diagnoses / Procedures Referred By Contac t Referred To Contact Obstetrics and Gynecology Diagnoses Supervision of high risk , unspecified, unspecified trimester Transfer of care appointment, then if she is high risk she can be referred back to [facility]. Procedures Referral to OBGYN office. [address] [address] Phone: tel: [facility] [address] [place] [address] Phone: tel: fax: Referral ID Status Reason Start Date Expiration Date Visits Re quested Visits Authorized [id number] Closed 11/17/2024 05/16/2025 1 1 Reason Comments Hyperglycemia Reason Comments Hypertension Headache Nausea/Vomiting In Specialty Diagnoses / Procedures Referred By Contac t Referred To Contact Diagnoses Hyperglycemia in ([facility]-HCC) Procedures Celena Carty, DARKROOM TECHNICIAN-TRAILER RENTAL CLERK [address] [place] [address] Phone: tel: fax: Critical access hospital 4 [address] [place] [address] Phone: tel: Reason Comments Contractions Hypertension Specialty Diagnoses / Procedures Referred By Contac t Referred To Contact Diagnoses Severe preeclampsia, third trimester ([facility]-HCC) Procedures Dhara Harrington, DARKROOM TECHNICIAN-TRAILER RENTAL CLERK [address] [facility] Department [place] [address] Phone: tel: fax: Critical access hospital 2 Obstetrics and Gynecology [address] [place] [address] Phone: tel: Referral ID Status Reason Start Date Expiration Date Visits Re quested Visits Authorized [id number] 1 1 Reason Comments New Patient Visit NEW PT WANTING BACK ON OZEMPIC Reason Comments Follow-up Patient Saathoff is here [facility] 1. Patient is here for a PPV , No pain , No falls . BS 123 BP 128/77 HR 110 Reason Comments Follow-up 6 week fu (ozempic) having trouble sleeping Chase Parham MD - 09/03/2018 12:58 PM EDT H&P Notes (unrecognized sect ion and content) Formatting of this note may be different from the original. [facility] History and Physical Patient Name: Dayna Tinsley : 1990 MR #: [id number] Admit Date: [id number] Physicians: Freddie Tinoco PA-C (Family); No ref. provider found (Referring) Dayna Tinsley is a 27 y.o. female patient of Freddie Tinoco PA-C with history of Crohn's, RA presented with acute pyelonephritis 1. Sepsis due to Acute pyelonephritis: urine culture 08/31 with E Coli (S:ancef, cipro, R: bactrim). CT abdomen (09/03) with bilateral perinephric stranding and hydronephrosis, no calculi. Plan for IV ancef based on recent cultures.Unclear cause for hydronephrosis (?reflux, passed stone) and will consult urology. 2. Diarrhea: reported history of 6-7 episodes of C diff. She is having multiple watery stools and will start contact precautions and check Cdiff PCR. 3. Acute kidney injury: creat at 0.7 (05/2017), at 1.19 on admission. Due to volume depletion and sepsis. IV fluids and IV antibiotics. 4. Hyponatremia: likely due to N/V and volume depletion. Isotonic saline. 5. Anemia, unspecified: Hgb 10.6 on admission, has been 12-13 over past year. No signs of active bleeding. Outpatient follow up. 6. Crohn's disease: follows at [facility]. CT abd (09/03) without signs of exacerbation. Admitted From: lives at home Medication Reconciliation: Verified Quality Measures DVT Prophylaxis: lovenox Taveras Catheter: none Chief Complaint: N/V History of Present Illness: Pt presented to ED today with 4 day history of N/V, right sided abd pain and diarrhea. She was seen at an outlying ED on 08/31, was diagnosed with UTI and was prescribed bactrim but she has been unable to tolerate due to N/V. Her symptoms persisted despite treatment. No other specific palliating or provoking factors. She denies hematemesis, melena, hematochezia, chest pain, dyspnea. Past Medical History: Past Medical History: Diagnosis Date Crohn disease (HCC) Rheumatoid arthritis (HCC) Past Surgical Hisory: Past Surgical History: Procedure Laterality Date CHOLECYSTECTOMY COLON SURGERY Resection D&C (DIL & CURETTAGE, SHARP W/ SUCTION) 2010 TYMPANOSTOMY TUBE PLACEMENT Family History: Family History Problem Relation Age of Onset Sudden Cardiac Other Secondary to enlarged ventricles Social History: History Smoking Status Never Smoker Smokeless Tobacco Never Used History Alcohol Use No History Drug Use No Allergy Information: I have reviewed the patient's allergies. Flagyl [metronidazole hcl]; Penicillins; Solu-cortef [hydrocortisone sod succinate]; and Versed [midazolam] Home Medications: Home medications were reviewed. ROS: All systems have been reviewed and are negative except as noted in HPI or below Constitutional:No fever, no weight loss CV:No chest pain. No ankle swelling Resp:No dyspnea. No wheezing All other systems reviewed and negative other than HPI. PHYSICAL EXAMINATION: BP (!) 131/93 (BP Location: Left arm, Patient Position: Lying) Pulse (!) 125 Temp (!) 100.8 ?F (38.2 ?C) (Oral) Resp (!) 24 SpO2 96% ? Unknown General appearance: Alert, appears mildly ill, and in no acute distress. HEENT: Head- normocephalic, atraumatic. Eyes - VIBHA bilaterally and EOMI. Ears - normal external appearance, hearing intact. Nose - normal, no erythema. Throat- mucous membranes dry, pharynx clear. Neck: supple, trachea midline. Cardiovascular: S1,S2 normal. No murmurs, no pedal edema. Respiratory: Lungs clear to auscultation, no wheezes or accessory muscle use Abdomen: Soft, right flank tenderness to percussion, no guarding or masses. Neurological: Alert, oriented X 3. Grossly normal motor and sensory exam. No focal deficits. Musculoskeletal: No joint tenderness, deformity or swelling. Skin: Normal coloration and turgor. No rashes. Psych: Normal mood and affect Laboratory and Additional Data Reviewed: Laboratory 09/03/18 12:58 PM Medications 09/03/18 12:58 PM Transcriptions 09/03/18 12:58 PM in this encounter Alcides Das MD - 09/04/2018 9:00 AM Raghu Wing MD - 09/04/2018 8:55 AM EDT Consult Notes (unrecognized section and content) Associated Order(s): IP CONSULT TO INFECTIOUS DISEASES Formatting of this note may be different from the original. INFECTIOUS DISEASES CONSULT NOTE Patient Name: Dayna Tinsley Admit Date: 10291112 MR #: [id number] : 1990 Assessment and Plan: 1. Pyelonephritis - E coli from urine from 08/31. Ancef reasonable. May take a few days to defervesce. 2. Crohn's - Per primary. 3. RA - Per primary. Disposition Comments: Monitor on Ancef. Physicians: Freddie Tinoco PA-C (Family); [facility] Chief Complaint/Reason for Visit: sepsis, pyelonephritis, recent uti History of Present Illness: Dayna Tinsley is a 27 y.o. female with history of Crohn's, RA who several days ago was having dysuria. Diagnosed with UTI and given Bactrim. Since has had ongoing nausea, vomiting, abdominal pain, diarrhea. No clear exacerbating factors. Fever to 103 on admission. Admitted for further care. Imaging with pyelonephritis. History: Past Medical History: Diagnosis Date Crohn disease (HCC) Rheumatoid arthritis (HCC) Past Surgical History: Procedure Laterality Date CHOLECYSTECTOMY COLON SURGERY Resection D&C (DIL & CURETTAGE, SHARP W/ SUCTION) 2010 TYMPANOSTOMY TUBE PLACEMENT Family History: No TB Social History Substance Use Topics Smoking status: Never Smoker Smokeless tobacco: Never Used Alcohol use No Allergy Information: I have reviewed the patient's allergies. Allergies Allergen Reactions Flagyl [Metronidazole Hcl] Penicillins Itching Solu-Cortef [Hydrocortisone Sod Succinate] Versed [Midazolam] Home Medications: Outpatient Prescriptions as of 09/04/2018 Medication Sig dicyclomine (BENTYL) 20 mg tablet Take 20 mg by mouth 3 (three) times a day before meals dronabinol (MARINOL) 5 MG capsule Take 5 mg by mouth 3 (three) times a day as needed (nausea). PNV NO.122/IRON/FOLIC ACID ( MULTI ORAL) Take 1 tablet by mouth daily promethazine (PHENERGAN) 25 MG suppository Insert 25 mg into the rectum daily as needed for nausea. Hospital Medications: Current Facility-Administered Medications Medication Dose Route Frequency Provider Last Rate Last Dose acetaminophen (TYLENOL) suppository 650 mg 650 mg Rectal Q6H PRN Samantha Couch MD 650 mg at 09/04/18 0508 ARIPiprazole (ABILIFY) tablet 5 mg 5 mg Oral Daily Chase Parham MD Stopped at 09/03/18 1830 ceFAZolin (ANCEF) IVPB 1 g (premix) 1,000 mg Intravenous Q12H Chase Parham MD Stopped at 09/04/18 0313 dronabinol (MARINOL) capsule 5 mg 5 mg Oral Q8H PRN Chase Parham MD 5 mg at 09/04/18 0115 DULoxetine (CYMBALTA) DR capsule 60 mg 60 mg Oral Daily Chase Parham MD Stopped at 09/03/18 183 enoxaparin (LOVENOX) syringe 40 mg 40 mg Subcutaneous Daily Chase Parham MD 40 mg at 09/04/18 0726 HYDROcodone-acetaminophen (NORCO) 5-325 mg per tablet 1 tablet 1 tablet Oral Q4H PRN Chase Parham MD 1 tablet at 09/03/18 2145 HYDROmorphone (DILAUDID) injection 0.25 mg 0.25 mg Intravenous Q4H PRN Felecia Arteaga CNP 0.25 mg at 09/04/18 0612 ketorolac (TORADOL) injection 30 mg 30 mg Intravenous Q6H PRN Samantha Couch MD 30 mg at 09/04/18 0726 lactated Ringers infusion 150 mL/hr Intravenous Continuous Chase Parham MD 150 mL/hr at 09/04/18 0834 150 mL/hr at 09/04/18 0834 naloxone (NARCAN) injection 0.1 mg 0.1 mg Intravenous PRN Chase Parham MD naloxone (NARCAN) injection 0.4 mg 0.4 mg Intravenous PRN Chase Parham MD prochlorperazine (COMPAZINE) injection 5 mg 5 mg Intravenous Q4H Felecia Arteaga TRAILER RENTAL CLERK 5 mg at 09/04/18 0617 QUEtiapine (SEROQUEL) tablet 200 mg 200 mg Oral BID Chase Parham MD 200 mg at 09/03/182252 scopolamine (TRANSDERM-SCOP) 1 mg over 3 days patch 1 patch 1 patch Transdermal Once Felecia Arteaga CNP 1 patch at 09/03/182005 sodium chloride (PF) (NS) flush 5 mL 5 mL Intravenous PRN Joy Capellan PA-C traZODone (DESYREL) tablet 50 mg 50 mg Oral Nightly PRN Chase Parham MD Review of Systems: The following system(s) were reviewed and pertinent findings noted: Constitutional, Eyes, ENT, CV, Resp, GI, Neuro, Skin, Musc, , Heme/Lym Physical Examination: Vital Signs: BP 91/61 (BP Location: Left arm, Patient Position: Lying) Pulse (!) 121 Temp 99.7 ?F (37.6 ?C) Resp 16 SpO2 94% ? Unknown General: No acute distress Head: Normocephalic, without obvious abnormality, atraumatic Eyes: PERRL, conjunctiva/corneas clear, EOM's intact Throat: Lips, mucosa without lesions Neck: Supple, symmetrical, trachea midline, no adenopathy; No thyromegaly Lungs: Clear to auscultation bilaterally, respirations unlabored,normal respiratory effort Cardiovascular: Regular rate and rhythm, S1 and S2 normal, no murmur, rub or gallop; no edema Abdomen: Soft, non-tender, bowel sounds active,no masses, no organomegaly Skin: Turgor normal, no rashes or lesions or nodules Musculoskeletal: No joint edema Neurologic: CNII-XII intact; grossly normal strength Psych: Mood and affect appropriate; alert and oriented x 3 Laboratory and Additional Data Reviewed: Lab Results Component Value Date WBC 5.51 09/04/2018 HGB 9.5 (L) 09/04/2018 HCT 30.7 (L) 09/04/2018 MCV 81.4 09/04/2018 PLT 134 (L) 09/04/2018 Lab Results Component Value Date GLUCOSE 99 09/04/2018 CALCIUM 8.6 09/04/2018 NA 132 (L) 09/04/2018 K 3.8 09/04/2018 CL 97 (L) 09/04/2018 BUN 8 09/04/2018 CREATININE 1.11 (H) 09/04/2018 Cultures: 08/31 urine E coli Radiology: 1. Findings of bilateral pyelonephritis, appearing more severe on the right. 2. Fluid distention of a few small bowel loops could be related to mild enteritis but could also be physiologic or related to recent ingestion. Of note, there are no findings suggestive of active Crohn disease. 3. Liquid stool in the right hemicolon, suggesting diarrhea. Alcides Das MD; cell ; pager Associated Order(s): IP CONSULT TO UROLOGY Formatting of this note may be different from the original. CONSULT NOTE Patient Name: Dayna Tinsley Admit Date: 10291112 MR #: [id number] : 1990 Physicians: Freddie Tinoco PA-C (Family); No ref. provider found (Referring) Assessment and Plan: Genitourinary Acute pyelonephritis Assessment & Plan Cultures are pending, but Dayna appears to have bilateral pyelonephritis. I do not see any evidence of obstruction on her CT nor do I see any uroliths. At this point I'd recommend continued broad spectrum IV antibiotics while we await final cultures. No surgical intervention required. Certainly she'll need to be evaluated as an outpatient in regards to recurrent UTIs and to maximize our prevention strategies. Chief Complaint/Reason for Visit: Chief Complaint Patient presents with Nausea Emesis Abdominal Pain History of Present Illness: Dayna is a 27-year-old female with a medical history significant for Crohn disease and rheumatoid arthritis who was in her normal state of health, until approximately a week ago when she began to develop dysuria. This gradually progressed to urinary frequency and urgency and ultimately flank pain with significant nausea and vomiting to the point that she was unable to keep anything down. It was this nausea and vomiting that resulted in her presentation to the emergency room where she was found to be febrile and tachycardic. Axial imaging obtained in the emergency department demonstrates bilateral renal enlargement, right greater than left, with bilateral perinephric stranding consistent with likely bilateral pyelonephritis. Her urinalysis is suspicious for infection with greater than 180 white blood cells and 4 red blood cells per high-powered field. Cultures, of course, are pending. She denies history of pyelonephritis. She does have a history of recurrent urinary tract infections. She does not follow regularly with a urologist and denies prior episodes of being so ill with an infection. She currently is having fevers and chills as above. She is experiencing nausea and vomiting. She denies frequency, urgency, and hematuria. She denies incontinence. I was consulted by Dr. Parham of the [facility] service to evaluate the above issue. History: Past Medical History: Diagnosis Date Crohn disease (HCC) Rheumatoid arthritis (HCC) Past Surgical History: Procedure Laterality Date CHOLECYSTECTOMY COLON SURGERY Resection D&C (DIL & CURETTAGE, SHARP W/ SUCTION) 2010 TYMPANOSTOMY TUBE PLACEMENT Family History Problem Relation Age of Onset Sudden Cardiac Other Secondary to enlarged ventricles Social History Social History Marital status: Spouse name: N/A Number of children: N/A Years of education: N/A Occupational History Not on file. Social History Main Topics Smoking status: Never Smoker Smokeless tobacco: Never Used Alcohol use No Drug use: No Sexual activity: Yes Partners: Male Other Topics Concern Not on file Social History Narrative No narrative on file Allergy Information: I have reviewed the patient's allergies. Flagyl [metronidazole hcl]; Penicillins; Solu-cortef [hydrocortisone sod succinate]; and Versed [midazolam] Home Medications: Outpatient Prescriptions as of 09/04/2018 Medication Sig dicyclomine (BENTYL) 20 mg tablet Take 20 mg by mouth 3 (three) times a day before meals dronabinol (MARINOL) 5 MG capsule Take 5 mg by mouth 3 (three) times a day as needed (nausea). PNV NO.122/IRON/FOLIC ACID ( MULTI ORAL) Take 1 tablet by mouth daily promethazine (PHENERGAN) 25 MG suppository Insert 25 mg into the rectum daily as needed for nausea. Review of Systems: The following system(s) were reviewed and are negative unless otherwise noted in the HPI: Constitutional Eyes ENT CV Resp GI Neuro Skin Musc Endo Heme/Lym Allergy Psych Physical Examination: Vital Signs: BP 91/61 (BP Location: Left arm, Patient Position: Lying) Pulse (!) 121 Temp 99.7 ?F (37.6 ?C) Resp 16 SpO2 94% ? Unknown General: Alert, cooperative, mild distress, appears stated age Head: Normocephalic, without obvious abnormality, atraumatic Eyes: PERRL, conjunctiva/corneas clear, EOM's intact, fundi benign both eyes Throat: Lips, mucosa, and tongue normal; teeth and gums normal Neck: Supple, symmetrical, trachea midline, no adenopathy; thyroid: no enlargement/tenderness/nodules; no carotid bruit or JVD Back: Symmetric, no curvature, ROM normal, no CVA tenderness Lungs: Clear to auscultation bilaterally, respirations unlabored,normal respiratory effort Chest Wall: No tenderness or deformity Cardiovascular: Regular rate and rhythm, S1 and S2 normal, no murmur, rub or gallop; Pulses 2+ and symmetric all extremities Abdomen: Soft, non-tender, bowel sounds active all four quadrants,no masses, no organomegaly Extremities: Normal, atraumatic, no cyanosis or edema Skin: Skin color, texture, turgor normal, no rashes or lesions Musculoskeletal: Full range of motion of all extremities; no joint edema Neurologic: CNII-XII intact; normal strength, sensation and reflexes throughout Psych: Mood and affect appropriate Laboratory and Additional Data Reviewed: Results from last 7 days Lab Units 09/04/1854309/03/18185309/03/18 1016 SODIUM mmol/L 132* 132* 129* POTASSIUM mmol/L 3.8 3.7 4.2 CHLORIDE mmol/L 97* -- 94* BUN mg/dL 8 -- 10 CREATININE mg/dL 1.11* -- 1.19* GLUCOSE mg/dL 99 127* 142* CALCIUM mg/dL 8.6 -- 9.3 Results from last 7 days Lab Units 09/04/18 0544 09/03/18185309/03/18 1016 WBC K/mcL 5.51 -- 12.76* HGB g/dL 9.5* -- 10.6* HEMOGLOBIN BG g/dL -- 9.9* -- HEMATOCRIT, CALCULATED % -- 30.6* -- HCT % 30.7* -- 32.8* PLT K/mcL 134* -- 179 MONOS% % -- -- 9.2 Ct Abdomen Pelvis With Iv Contrast Only Result Date: 09/03/2018 EXAMINATION: CT OF THE ABDOMEN AND PELVIS WITH CONTRAST 09/03/2018 11:48 am TECHNIQUE: CT of the abdomen and pelvis was performed with the administration of intravenous contrast. Multiplanar reformatted images are provided for review. Dose modulation, iterative reconstruction, and/or weight based adjustment of the mA/kV was utilized to reduce the radiation dose to as low as reasonably achievable. COMPARISON: None HISTORY: ORDERING SYSTEM PROVIDED HISTORY: abd pain, fever, h/o crohns; TECHNOLOGIST PROVIDED HISTORY: Reason for Exam: abd pain, fever, h/o crohns Illness/Other Acuity: Acute Type of Encounter: Initial Additional signs and symptoms: rt side abd pAIN FINDINGS: LOWER CHEST: Patchy linear opacities in both lung bases, likely scarring and/or atelectasis. Normal heart size. No pleural nor pericardial effusions. ORGANS: Focal steatosis in hepatic segment 4 adjacent to the fissure for ligamentum teres. Surgically absent gallbladder. No intrahepatic nor extrahepatic biliary dilation. Mild pancreatic atrophy. Heterogeneous enhancement of the kidneys with striated nephrograms in the right upper pole. Subtle bilateral perinephric stranding. No calculi nor hydroureteronephrosis. Normal spleen and adrenal glands. GI/BOWEL: Normal course and caliber of the stomach, small bowel, colon, and rectum without obstruction. Fluid distention of a few small bowel loops. Normal appendix. Liquid stool in the right hemicolon. No obvious abnormal bowel wall thickening nor mucosal hyperenhancement. PELVIS: Normal uterus with an intrauterine device in expected position. Normal ovaries and urinary bladder. PERITONEUM/RETROPERITONEUM: No abdominal nor pelvic lymphadenopathy. No free intraperitoneal fluid nor gas. SOFT TISSUES/BONES: No inguinal lymphadenopathy. No acute fractures nor suspicious osseous lesions. 1. Findings of bilateral pyelonephritis, appearing more severe on the right. 2. Fluid distention of a few small bowel loops could be related to mild enteritis but could also be physiologic or related to recent ingestion. Of note, there are no findings suggestive of active Crohn disease. 3. Liquid stool in the right hemicolon, suggesting diarrhea. Workstation ID: [id number] in this encounter Quick Note - Bhakti Allison, RN - 09/08/2018 4:10 PM ESTPlan of [facility] - Earl Cruz, TARA - 09/06/2018 6:22 AM EDTPlan of [facility] - Becky Vuong RN - 09/06/2018 3:21 AM EDT Miscellaneous Notes (unrecog nized section and content) Discharged patient to home with discharge instructions, prescriptions was given to patient . Formatting of this note may be different from the original. Problem: Gas Exchange - Impaired Goal: Adequate oxygenation Outcome: Partially Met 1. Assess respiratory status through observation of chest for excursion, breath sounds, cough effort & sputum production, and respiratory rate. 2. Notify physician of clinical changes. Continue current therapy Category C Medications: IP Meds - Nasal and Inhaled Frequency ipratropium-albuterol (DUO-NEB) 0.5-2.5 mg/3 ml nebulizer solution 3 mL Every 6 hours scheduled (RT) Orders: Respiratory Orders Start Ordered 09/05/182351 Nasal cannula oxygen Continuous Question: Liters per minute Answer: 3 lts/min, titrate to keep O2 sats >90% 09/05/18235109/05/182350 Incentive spirometry Until discontinued 09/05/182351 Problem: Infection Goal: Vital signs and blood gases are within patient's accepted norms Outcome: Partially Met Patient SpO2 86-89% on 2L O2, with tachycardia and fever. Notified HMS. Titrated O2, medicated per JAN. Control temperature with tylenol/motrin PRN and cool wash cloths. RAT nurse notified of changes. Continue to monitor. Paged by RN about low O2 sats and fever again of 102. Pt received tylenol and norco, Motrin X1 ordered. Titrate O2 up to 4 lts, nebs Q 6 hrs along with IS ordered. Stop IVF running at 150/hr for the night,n BP stable at 138/82. AM attending to address IVF. Patient was seen and examined Problem: Pain Goal: Manage acute pain Outcome: Partially Met Patient continues to complain of mild to moderate generalized pain during my shift. Will utilize ordered PRN pain medications for pain control. RAT nurse at bedside to evaluate pt for MEWS score per bedside RN. Will continue to monitor pt. Associated Problem(s): Acute pyelonephritis B/L pyelo with no evidence of obstruction or stones on CT Afeb last 24 hours. No UCx results available. No urinary complaints. No surgical intervention required. We will sign off F/u on at our [facility] office to discuss UTI prevention for 10/02/18 at 1:45pm. Arrive at 1:15pm. Details on AVS Patient had scored MEWS of 5. Have notified Rapid Response Nurse. [facility] boiler control technician is aware of the MEWS score. Patient is here for Sepsis. [facility] has placed an order for PRN Tylenol. Tylenol have been given. Will monitor patient and take vital again in one hour. [facility] NOTE Called by pt's nurse that pt getting nauseous when she gets oral vancomycin. Oral vanco was ordered empirically for presumed cdiff. Cdiff toxin however negative. Will dc po vancomycin. Continue ancef for pyelonephritis. I did not personally evaluate the patient. Treatment is based on review of chart and discussion with nursing staff and treatment team as necessary. Patient scored a 4 on MEWS for a heart rate of 120 and a temperature of greater than 102. [facility] physician and Rapid response nurse notified. See orders for physician recommendations. Will continue to monitor. Formatting of this note may be different from the original. ED PROVIDER NOTE [facility] EM[facility]ENCY [facility] NAME: Dayna Tinsley AGE: 27 y.o. : 1990 VISIT DATE: 09/03/2018 CSN: [id number] PCP: Freddie Tinoco PA-C Chief complaint: Right lower quadrant abdominal pain associate with nausea and vomiting. History of present illness: This 27-year-old female has history of Crohn's disease. The patient complains of nonstop nausea vomiting for last 24 hours associated with lower abdominal pain. The patient complains of fevers and chills. The patient states she has had nonstop vomiting. The patient rates her pain is 9 out of 10 at this time. The patient denies any headache or neck stiffness. The patient denies any shortness of breath. The patient is tachycardic upon presentation to the ED. Chief Complaint Patient presents with Nausea Emesis Abdominal Pain HPI Past Medical History: Diagnosis Date Crohn disease (HCC) Rheumatoid arthritis (HCC) Past Surgical History: Procedure Laterality Date CHOLECYSTECTOMY COLON SURGERY Resection D&C (DIL & CURETTAGE, SHARP W/ SUCTION) 2010 TYMPANOSTOMY TUBE PLACEMENT Family History Problem Relation Age of Onset Sudden Cardiac Other Secondary to enlarged ventricles Social History Social History Marital status: Spouse name: N/A Number of children: N/A Years of education: N/A Occupational History Not on file. Social History Main Topics Smoking status: Never Smoker Smokeless tobacco: Never Used Alcohol use No Drug use: No Sexual activity: Yes Partners: Male Other Topics Concern Not on file Social History Narrative No narrative on file Previous Medications ARIPIPRAZOLE (ABILIFY) 5 MG TABLET Take 5 mg by mouth daily. DICYCLOMINE (BENTYL) 20 MG TABLET Take 20 mg by mouth 3 (three) times a day before meals DRONABINOL (MARINOL) 5 MG CAPSULE Take 5 mg by mouth 3 (three) times a day as needed (nausea). DULOXETINE (CYMBALTA) 60 MG CAPSULE Take 60 mg by mouth daily. HALOPERIDOL (HALDOL) 5 MG TABLET Take 5 mg by mouth 2 (two) times a day. PNV NO.122/IRON/FOLIC ACID ( MULTI ORAL) Take 1 tablet by mouth daily PROMETHAZINE (PHENERGAN) 25 MG SUPPOSITORY Insert 25 mg into the rectum daily as needed for nausea. QUETIAPINE (SEROQUEL) 200 MG TABLET Take 200 mg by mouth 2 (two) times a day. SULFAMETHOXAZOLE-TRIMETHOPRIM (BACTRIM DS,SEPTRA DS) 800-160 MG PER TABLET Take 1 tablet by mouth 2 (two) times a day. Allergies Allergen Reactions Flagyl [Metronidazole Hcl] Penicillins Itching Solu-Cortef [Hydrocortisone Sod Succinate] Versed [Midazolam] Review of Systems Constitutional: Positive for fever. HENT: Negative for ear pain. Eyes: Negative for pain. Respiratory: Negative for shortness of breath. Cardiovascular: Negative for chest pain. Gastrointestinal: Positive for abdominal pain, nausea and vomiting. Endocrine: Negative for polydipsia and polyuria. Genitourinary: Negative for flank pain. Musculoskeletal: Negative for back pain. Skin: Negative for rash. Allergic/Immunologic: Negative for immunocompromised state. Neurological: Negative for headaches. Psychiatric/Behavioral: Negative for confusion. Patient Vitals for the past 24 hrs: BP Temp Temp src Pulse Resp SpO2 09/03/18 1415 (!) 124/99 - - - - - 09/03/18 0948 (!) 131/93 (!) 100.8 ?F (38.2 ?C) Oral (!) 125 (!) 24 96 % Physical Exam Constitutional: She is oriented to person, place, and time. Uncomfortable appearing female. HENT: Head: Normocephalic and atraumatic. Mucous membranes are dry. Eyes: EOM are normal. Pupils are equal, round, and reactive to light. Neck: Normal range of motion. Neck supple. Cardiovascular: Normal rate and regular rhythm. Abdominal: Soft. There is tenderness. Patient has right lower quadrant tenderness. There is some guarding. There is no rebound or rigidity noted. Musculoskeletal: Normal range of motion. Neurological: She is alert and oriented to person, place, and time. Skin: Skin is warm and dry. Laboratory & Radiographic Imaging (if done): Results for orders placed or performed during the hospital encounter of 09/03/18 BMP Result Value Ref Range Sodium 129 (L) 135 - 145 mmol/L Potassium 4.2 3.5 - 5.1 mmol/L Chloride 94 (L) 98 - 108 mmol/L Bicarbonate 19 (L) 21 - 32 mmol/L Anion Gap 20 10 - 20 mmol/L Glucose 142 (H) 65 - 99 mg/dL BUN 10 8 - 25 mg/dL Creatinine 1.19 (H) 0.40 - 1.10 mg/dL eGFR 62 >=60 mL/min/1.73 m2 BUN/Creatinine Ratio 8.4 (L) 10.0 - 20.0 Calcium 9.3 8.4 - 10.2 mg/dL Hepatic Function Panel (LFT) Result Value Ref Range Total Protein 8.2 (H) 6.0 - 8.0 g/dL Albumin 3.8 3.2 - 5.2 g/dL Total Bilirubin 0.7 0.0 - 1.3 mg/dL Bilirubin, Direct <0.1 0.0 - 0.4 mg/dL Alkaline Phosphatase 89 40 - 140 U/L AST 41 0 - 45 U/L ALT 14 0 - 40 U/L Lipase Result Value Ref Range Lipase 10 (L) 15 - 65 U/L Lactic Acid, Plasma Result Value Ref Range Lactic Acid 1.2 0.6 - 2.0 mmol/L Urinalysis Result Value Ref Range Color, Urine Yellow Colorless, Yellow Clarity, Urine Cloudy (A) Clear Specific [place] 1.015 1.005 - 1.025 pH, Urine 5.0 5.0 - 7.0 Protein, Urine 100 (A) Negative mg/dL Glucose, Urine Negative Negative mg/dL Ketones, Urine Trace (A) Negative mg/dL Bilirubin, Urine Negative Negative Urobilinogen, Urine <2.0 <2.0 mg/dL Blood, Urine Large (A) Negative Nitrite, Urine Positive (A) Negative Leukocyte Esterase, Urine Large (A) Negative WBCs, Urine >180 (H) 0 - 5 /hpf RBCs, Urine 4 (H) 0 - 3 /hpf Bacteria, Urine Many (A) None Seen /hpf Squamous Epithelial 4 0 - 4 /hpf Hyaline Casts 0-2 0 - 2 /lpf Mucus, Urine Rare None Seen, Rare /lpf Gold Top Result Value Ref Range Extra Tube Hold for add-ons. Light Blue Top Result Value Ref Range Extra Tube Hold for add-ons. POC Urine Result Value Ref Range POC Preg Test, Ur Negative Negative Internal Control Pass Spec Grav, UA 1.005 - 1.025 CBC Auto Differential Result Value Ref Range WBC 12.76 (H) 4.50 - 11.00 K/mcL RBC 4.24 4.00 - 5.20 M/mcL Hemoglobin 10.6 (L) 12.0 - 16.0 g/dL Hematocrit 32.8 (L) 36.0 - 46.0 % MCV 77.4 (L) 80.0 - 100.0 fL MCH 25.0 (L) 26.0 - 34.0 pg MCHC 32.3 31.0 - 37.0 g/dL Platelets 179 150 - 400 K/mcL RDW - CV 15.7 (H) 11.6 - 14.8 % MPV 10.9 9.0 - 15.5 fL Neutrophils 84.8 % Lymphocytes 4.8 % Monocytes 9.2 % Eosinophils 0.0 % Basophils 0.2 % IG Percent 1.00 % Neutrophils Abs 10.81 (H) 1.70 - 7.00 K/mcL Lymphocytes Abs 0.61 (L) 0.90 - 4.00 K/mcL Monocytes Abs 1.18 (H) 0.30 - 0.90 K/mcL Eosinophils Abs 0.00 0.00 - 0.50 K/mcL Basophils Abs 0.03 0.00 - 0.30 K/mcL IG Absolute 0.13 0.00 - 0.30 K/mcL Nucleated RBC 0.0 % Nucleated RBC Abs 0.00 0.00 - 0.00 K/mcL CT Abdomen Pelvis With IV Contrast Only Final Result 1. Findings of bilateral pyelonephritis, appearing more severe on the right. 2. Fluid distention of a few small bowel loops could be related to mild enteritis but could also be physiologic or related to recent ingestion. Of note, there are no findings suggestive of active Crohn disease. 3. Liquid stool in the right hemicolon, suggesting diarrhea. Workstation ID: [id number] Procedures MDM Medical decision-making: CT demonstrates pyelonephritis. She does not have acute appendicitis. Patient is treated with IV Ancef. Due to the persistent vomiting, fever and generalized malaise, she will be admitted for observation to hospital medicine service. Depression: Acute pyelonephritis. Disposition: Admission. Condition: Guarded. The patient has been informed that they may have pre-hypertension or hypertension based on a blood pressure reading in the Emergency Department. I recommend that the patient call the primary care provider listed on their discharge instructions or a physician of their choice as soon as possible to arrange follow-up in the next 4 weeks for further evaluation of possible pre-hypertension or hypertension. . Clinical Impression: SNOMED CT(R) 1. Acute pyelonephritis ACUTE PYELONEPHRITIS 2. Nausea and vomiting, intractability of vomiting not specified, unspecified vomiting type NAUSEA AND VOMITING ED Disposition ED Disposition Condition Comment Hospitalize Level of Care: Med Surg w/Cardiac Monitoring [19] Admitting Physician: CHASE PARHAM [[id number]] Diagnosis: Acute pyelonephritis [[id number]] Attending Provider or Group: [facility] [[id number]] Expected Length of Stay in Days: 3 Reason for inpatient over two midnights: IV antibiotics Follow-up Information Follow-up information has not been specified. Contact information for after-discharge care Follow-up information has not been specified. New Prescriptions No medications on file Juan Pastor MD 09/03/18 1444 Pt is aaox3, respirations are equal and unlabored, hr is regular. Pt states that she has been vomiting for four days. Pt denies seeing any blood in her vomit. Pt states that she is also having diarrhea and states that she has had approx. 15 bouts of diarrhea. Pt [facility] for an appointment for her son and couldn't make it due to the diarrhea and vomiting. Pt states that she is having rlq abdominal pain as well. Pt denies any other symptoms. Side rails up x 2, call light with in reach. Will continue to monitor. Pt arrives with c/o n/v and RLQ abd pain x4 days. Pt states pain is increasing. Pt diaphoretic and tachycardic. Pt states she still has her appendix. ABCs intact. Bed: 09 Expected date: Expected time: Means of arrival: Comments: Medic 8in this encounter Narrative: 09--[facility] who [facility] sending this patient to [facility] [place] [place] [facility]. Patient with hx of Chrohn's who presents with vomiting/diarrhea. Patient recently dx with UTI, and on Bactrim. Oxygenation: 127/89, 126, 18, 100% in this encounter Goals (unrecognized section and content) Goals may be documented in a n alternate section No data available for this sectionGoals may be documented in an alternate sectionGoals may be documented in an alternate sectionGoals may be documented in an alternate sectionGoals may be documented in an alternate sectionGoals may be documented in an alternate sectionGoals may be documented in an alternate sectionGoals may be documented in an alternate sectionGoals may be documented in an alternate sectionGoals may be documented in an alternate sectionGoals may be documented in an alternate sectionGoals may be documented in an alternate section Care Team (unrecognized sect ion and content) Care Team Personnel Name: PHYSICIAN, NONE Position: Physician Member Role: Primary Care Physician Name: SALIMA CONSTANTINO MD Position: ED Physician Member Role: ED Physician Address: Address: [address] [place] [address]- Care Teams (unrecognized sec tion and content) Team Status: Active Member Role Status Dates No Primary Care Physician Family Provider Active No Primary Care Physician Primary Care Provider Active Team Status: Inactive Member Role Status Dates No Primary Care Physician Primary Care Provider, Refer ring Provider Active Rodolfo GRULLON PA Attending Provider Active Team Status: Inactive Member Role Status Dates No Primary Care Physician Primary Care 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 Juancho Fair DO Attending Provider, Emergency Provide r Active Team Status: Inactive Member Role Status Dates No Primary Care Physician Primary Care 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 Nilesh Rojo MD Attending Provider, Emergency Provider Active Team Status: Inactive Member Role Status Dates No Primary Care Physician Primary Care 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 Jimmy Taylor MD Emergency Provider Active Team Status: Inactive Member Role Status Dates No Primary Care Physician Primary Care 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 Jimmy Taylor MD Attending Provider, Emergency Provider Active Team Status: Inactive Member Role Status Dates No Primary Care Physician Primary Care 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 Garrett Todd , DO Emergency Provider Active Team Status: Active Member Role Status Dates No Primary Care Physician Family Provider Active [facility] Primary Care Provider A ctive Team Status: Inactive Member Role Status Dates [facility] Primary Care Provider A ctive Dr. Major Mejia , DO Emergency Provider Active Team Status: Inactive Member Role Status Dates [facility] Primary Care Provider A ctive Dr. Joseph Delgado , DO Attending Provider, Emergency P rovider Active Team Status: Inactive Member Role Status Dates [facility] Primary Care Provider A ctive Dr. Garrett Brooks , DO Emergency Provider Active Team Status: Inactive Member Role Status Dates [facility] Primary Care Provider A ctive Dr. Agustín Estrada MD Attending Provider, Emergency Pro vider Active Team Status: Inactive Member Role Status [facility] Primary Care Provider A ctive Dr. Garrett Brooks , DO Attending Provider, Emergency Provider Active Team Status: Active Member Role Status Dates No Primary Care Physician Family Provider Active Fahad [employer], [employer] Primary Care Provider Active Team Status: Inactive Member Role Status Dates Dr. Jose Wynn DO Emergency Provider Active Fahad Champagne [employer], [employer] Primary Care Provider Active Team Status: Inactive Member Role Status Dates Dr. Jose Wynn DO Attending Provider, Emergency Pro vider Active Fahad Champagne [employer], [employer] Primary Care Provider Active Team Status: Inactive Member Role Status Dates Fahad Champagne V[employer], [employer] Primary Care Provider Active Ed Physician Provider Emergency Provider Active Team Status: Inactive Member Role Status Dates Fahad Champagen V[employer], [employer] Primary Care 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 Jose Wynn DO Emergency Provider Active Team Status: Inactive Member Role Status Dates Fahad Champagne V[employer], [employer] Primary Care 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 Jose Wynn DO Attending Provider, Emergency Pro vider Active Team Status: Inactive Member Role Status Dates Fahad Champagne [employer], [employer] Primary Care Provider Active Ed Physician Provider Attending Provider, Emergency Pr ovider Active Team Status: Inactive Member Role Status Dates Fahad Champagne [employer], [employer] Primary Care Provider Active Nito Nur MD Emergency Provider Active Team Status: Inactive Member Role Status Dates Fahad Champagne [employer], [employer] Primary Care Provider Active Nito Nur MD Attending Provider, Emergency Provid er Active Team Status: Inactive Member Role Status Dates Fahad Champagne [employer], [employer] Primary Care 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 Jagjit Ortega MD Attending Provider, Suzy loco Active Escrow Representative Relationship Specialty Start Date End Date Generic Provider, [place] [address] PCP - [employer] 01/20/25 Escrow Representative Relationship Specialty Start Date End Date Generic Provider, [place] [address] PCP - [employer] Driver 01/20/25 Escrow Representative Relationship Specialty Start Date End Date Generic Provider, [place] [address] PCP - [employer] Driver 01/20/25 Escrow Representative Relationship Specialty Start Date End Date Generic Provider, [place] [address] PCP - [employer] Driver 01/20/25 [place] [address] [place] [address] Manager Career Maternal and Medicine 02/15/25 Escrow Representative Relationship Specialty Start Date End Date Generic Provider, [place] [address] PCP - [employer] Driver 01/20/25 [place] [address] [place] [address] Manager Career Maternal and Medicine 02/15/25 Escrow Representative Relationship Specialty Start Date End Date Generic Provider, [place] [address] PCP - [employer] Driver 01/20/25 [place] [address] [place] [address] Manager Career Maternal and Medicine 02/15/25 Escrow Representative Relationship Specialty Start Date End Date Generic Provider, [place] [address] PCP - [employer] Driver 01/20/25 [place] [address] [place] [address] Manager Career Maternal and Medicine 02/15/25 Escrow Representative Relationship Specialty Start Date End Date Zoë Santana MD [address] [place] [address] PCP - General Internal Medicine 03/16/25 [place] [address] [place] [address] Manager Career Maternal and Medicine 02/15/25 Scheduled Active and Recently Administ ered Medications (unrecognized section and content) Medication Order 12/23/2024 12/24/2024 12/25/2024 aspirin EC tablet 81 mg 81 mg, oral, Daily, First dose on Sun12/23/24 at 1915, Do not crush, chew, or split. 1917 (Canceled Entry - Provider: Gregory Harrell RN) 0853 (Given - Provider: Chanel Allen RN) 0831 (Given - Provider: Lexis Quintana RN) diphenhydrAMINE (BENADryl) injection 25 mg (COMPLETED) 25 mg, intravenous, Once, On Sun12/24/24 at 1645, For 1 dose, If giving IV push, max rate of 25 mg/min. 1637 (Given - Provider: Chanel Allen RN) doxepin (SINEquan) capsule 75 mg 75 mg, oral, Nightly, First dose on Sun12/23/24 at 2130 2334 (Given - Provider: Sherry Heath RN - Comment: patient wats to wait 3 hours post meal) 2307 (Given - Provider: Lily Babcock RN) 2100 (Due) insulin lispro injection 10 Units 10 Units, subcutaneous, 3 times daily before meals, First dose on Sun12/23/24 at 1845, Do not hold unless patient is eating <50% of meal or glucose is less than 90 mg/dL within 1 hour before meal. Administer 5 minutes before meal. 2042 (Given - Provider: Sherry Heath RN) 0853 (Given - Provider: Chanel Allen RN - Comment: flexible meal times)1229 (Given - Provider: Chanel Allen RN - Comment: flexible meal times)1728 (Given - Provider: Chanel Allen RN - Comment: flexible meal times) 0952 (Given - Provider: Lexis Quintana RN)1226 (Given - Provider: Lexis Quintana RN)1600 (Due) insulin NPH (Isophane) (HumuLIN N,NovoLIN N) injection 20 Units (CANCELED) 20 Units, subcutaneous, Every 12 hours scheduled, First dose (after last modification) on Sun12/23/24 at 1900, Long-acting insulin should be given regardless of PO intake. Consider dose reduction if concerned for NPO or glucose trending less than 100 mg/dL. 1838 (Given - Provider: Brianna Deluna RN) 0853 (Given - Provider: Chanel Allen RN) insulin NPH (Isophane) (HumuLIN N,NovoLIN N) injection 20 Units 20 Units, subcutaneous, Every 24 hours scheduled, First dose on Sun12/25/24 at 0700 0822 (Given - Provider: Lexis Quintana RN) insulin NPH (Isophane) (HumuLIN N,NovoLIN N) injection 30 Units 30 Units, subcutaneous, Nightly, First dose (after last modification) on Sun12/24/24 at 2100, Long-acting insulin should be given regardless of PO intake. Consider dose reduction if concerned for NPO or glucose trending less than 100 mg/dL. 2108 (Given - Provider: Lily Babcock RN) 2100 (Due) metoclopramide (Reglan) tablet 10 mg 10 mg, oral, Once, On Sun12/24/24 at 1515, For 1 dose 1451 (Not Given - Provider: Chanel Allen RN - Reason: Patient/family refused) vitamin (iron-folic) tablet 1 tablet 1 tablet, oral, Daily, First dose on Sun12/23/24 at 1915, provides 0.8 mg folic acid 1918 (Canceled Entry - Provider: Gregory Harrell RN) 0853 (Not Given - Provider: Chanel Allen RN - Reason: Patient/family refused) 0834 (Not Given - Provider: Lexis Quintana RN - Reason: Patient/family refused) promethazine (Phenergan) tablet 25 mg (COMPLETED) 25 mg, oral, Once, On Sun12/24/24 at 1330, For 1 dose 1317 (Given - Provider: Elyssa Pastor RN) PRN Medication Order 12/23/2024 12/24/2024 12/25/2024 acetaminophen (Tylenol) tablet 975 mg 975 mg, oral, Every 6 hours PRN, pain mild (1-3), first line, headaches, fever (temp greater than 38.0 C), Starting on Sun12/24/24 at 1236, If ordered PRN for pain, nurse is permitted to administer this medication for higher pain scores based on patient preference? Yes 1256 (Given - Provider: Elyssa Pastor RN)1911 (Given - Provider: Chanel Allen RN) caffeine tablet 100 mg 100 mg, oral, Every 4 hours PRN, headaches, Starting on Sun12/24/24 at 1905, Dose = mg of caffeine. (Order only half the usual caffeine citrate or caffeine-sodium benzoate dose) dextrose 50 % injection 12.5 g 12.5 g, intravenous, Every 15 min PRN, For blood glucose 41 to 70 mg/dL, Starting on Sun12/23/24 at 1819, May repeat until blood glucose level reaches 100 mg/dL or greater. Push 2 - 3 mL/minute if patient has secure IV access. dextrose 50 % injection 25 g 25 g, intravenous, Every 15 min PRN, For blood glucose less than or equal to 40 mg/dL, Starting on Sun12/23/24 at 1819, May repeat until blood glucose level reaches 100 mg/dL or greater. Push 2 - 3 mL/minute if patient has secure IV access. diphenhydrAMINE (BENADryl) injection 25 mg 25 mg, intravenous, Every 6 hours PRN, sleep, Starting on Sun12/24/24 at 1903, If giving IV push, max rate of 25 mg/min. 2307 (Given - Provider: Zev Babcock RN) famotidine (Pepcid) tablet 10 mg 10 mg, oral, 2 times daily PRN, heartburn, Starting on Sun12/23/24 at 1852 glucagon (Glucagen) injection 1 mg 1 mg, intramuscular, Every 15 min PRN, blood glucose less than or equal to 40 mg/dL - see comments, For blood glucose less than or equal to 40 mg/dL and no IV access, Starting on Sun12/23/24 at 1819, Give until blood glucose is 100 mg/dL or greater. If patient DOES NOT HAVE secure IV access & patient is unconscious, NPO or is unable to eat or drink. glucagon (Glucagen) injection 1 mg 1 mg, intramuscular, Every 15 min PRN, blood glucose 41 to 70 mg/dL - see comments, For blood glucose 41 to 70 mg/dL and no IV access, Starting on Sun12/23/24 at 1819, Give until blood glucose is 100 mg/dL or greater. If patient DOES NOT HAVE secure IV access & patient is unconscious, NPO or is unable to eat or drink. hydrALAZINE (Apresoline) injection 5 mg 5 mg, intravenous, Administer over 2 Minutes, Once as needed, Systolic greater than or equal to 160 OR Diastolic greater than or equal to 110, Starting on Sun12/23/24 at 1741, For 1 dose, Consult provider prior to administration. Push over more than 2 minutes. Systolic greater than or equal to 160 OR Diastolic greater than or equal to 110. Repeat blood pressure in 20 minutes. Contraindication: coronary artery disease (CAD); Caution in suspected CAD labetaloL (Normodyne,Trandate) injection 20 mg 20 mg, intravenous, Administer over 2 Minutes, Once as needed, Systolic greater than or equal to 160 OR Diastolic greater than or equal to 110, Starting on Sun12/23/24 at 1741, For 1 dose, Consult provider prior to administration. Push over more than 2 minutes. Systolic greater than or equal to 160 OR Diastolic greater than or equal to 110. Repeat blood pressure in 10 minutes. Contraindications: active asthma, heart disease, heart failure, maternal bradycardia < 60. lidocaine (Xylocaine) 10 mg/mL (1 %) injection 0.5 mL 0.5 mL, subcutaneous, Once as needed, Prior to IV insertion, Starting on Sun12/23/24 at 1853, For 1 dose magnesium hydroxide (Milk of Magnesia) 400 mg/5 mL suspension 10 mL 10 mL, oral, Every 24 hours PRN, constipation, second line, Starting on Sun12/23/24 at 1853, Follow administration with 8 ounces of water. NIFEdipine (Procardia) capsule 10 mg 10 mg, oral, Once as needed, Systolic greater than or equal to 160 OR Diastolic greater than or equal to 110, Starting on Sun12/23/24 at 1741, For 1 dose, Consult provider prior to administration. ondansetron (Zofran) injection 4 mg(Linked Group 1) 4 mg, intravenous, Every 6 hours PRN, nausea/vomiting, first line, Starting on Sun12/23/24 at 1741, Give IV if patient is unable to take orally. When administering via IV Push, administer over 3-5 minutes. ondansetron (Zofran) tablet 4 mg(Linked Group 1) 4 mg, oral, Every 6 hours PRN, nausea/vomiting, first line, Starting on Sun12/23/24 at 1741 polyethylene glycol (Glycolax, Miralax) packet 17 g 17 g, oral, 2 times daily PRN, constipation, first line, Starting on Sun12/23/24 at 1853 simethicone (Mylicon) chewable tablet 80 mg 80 mg, oral, 4 times daily PRN, flatulence, Starting on Sun12/23/24 at 1853 Linked Groups Order Group 1: ondansetron (Zofran) tablet 4 mgJump to med 4 mg, oral, Every 6 hours PRN, nausea/vomiting, first line, Starting on Sun12/23/24 at 1741 Or ondansetron (Zofran) injection 4 mgJump to med 4 mg, intravenous, Every 6 hours PRN, nausea/vomiting, first line, Starting on Sun12/23/24 at 1741, Give IV if patient is unable to take orally. When administering via IV Push, administer over 3-5 minutes. Scheduled Medication Order 01/06/2025 01/07/2025 01/08/2025 acetaminophen (Tylenol) tablet 975 mg (COMPLETED) 975 mg, oral, Once, On Sis 01/08/25 at 1630, For 1 dose, If ordered PRN for pain, nurse is permitted to administer this medication for higher pain scores based on patient preference? Yes 6829 (Given - Provid er: Juany Espana RN) diphenhydrAMINE (BENADryl) injection 25 mg (COMPLETED)(Linked Group 1) 25 mg, intravenous, Administer over 2 Minutes, Once, On Sis 01/08/25 at 1630, For 1 dose, Give IV if patient unable to take orally. 175 (Given - Provid er: Juany Espana RN) promethazine (Phenergan) 25 mg in sodium chloride 0.9% 50 mL IV (COMPLETED) 25 mg, intravenous, Once, On Sis 01/08/25 at 1900, For 1 dose 1942 (New Bag - Prov ider: Levar Nava RN) PRN Medication Order 01/06/2025 01/07/2025 01/08/2025 ondansetron (Zofran) injection 4 mg(Linked Group 2) 4 mg, intravenous, Every 6 hours PRN, nausea/vomiting, first line, Starting on Sis 01/08/25 at 1605, Give IV if patient is unable to take orally. When administering via IV Push, administer over 3-5 minutes. ondansetron (Zofran) tablet 4 mg(Linked Group 2) 4 mg, oral, Every 6 hours PRN, nausea/vomiting, first line, Starting on Sis 01/08/25 at 1605 Linked Groups Order Group 1: diphenhydrAMINE (BENADryl) injection 25 mg (COMPLETED)Jump to med 25 mg, intravenous, Administer over 2 Minutes, Once, On Sis 01/08/25 at 1630, For 1 dose, Give IV if patient unable to take orally. Or diphenhydrAMINE (BENADryl) capsule 25 mg (COMPLETED) 25 mg, oral, Once, On Sis 01/08/25 at 1630, For 1 dose, Use oral route first, if possible. Group 2: ondansetron (Zofran) tablet 4 mgJump to med 4 mg, oral, Every 6 hours PRN, nausea/vomiting, first line, Starting on Sis 01/08/25 at 1605 Or ondansetron (Zofran) injection 4 mgJump to med 4 mg, intravenous, Every 6 hours PRN, nausea/vomiting, first line, Starting on Sis 01/08/25 at 1605, Give IV if patient is unable to take orally. When administering via IV Push, administer over 3-5 minutes. Scheduled Medication Order 01/13/2025 01/14/2025 01/15/2025 acetaminophen (Tylenol) tablet 975 mg (COMPLETED) 975 mg, oral, Once, On Sis 01/15/25 at 0315, For 1 dose, If ordered PRN for pain, nurse is permitted to administer this medication for higher pain scores based on patient preference? Yes 0423 (Given - Provid er: Mary Jo Allen RN) cyclobenzaprine (Flexeril) tablet 10 mg (COMPLETED) 10 mg, oral, Once, On Sis 01/15/25 at 0315, For 1 dose 0422 (Given - Provid er: Mary Jo Allen RN) diphenhydrAMINE (BENADryl) injection 25 mg (COMPLETED) 25 mg, intravenous, Once, On Sis 01/15/25 at 0345, For 1 dose, If giving IV push, max rate of 25 mg/min. 0424 (Given - Provid er: Mary Jo Allen RN) lactated Ringer's bolus 500 mL (COMPLETED) 500 mL, intravenous, at 250 mL/hr, Administer over 2 Hours, Once, On Sis 01/15/25 at 0315, For 1 dose 0358 (New Bag - Prov ider: Mary Jo Allen RN)0524 (Stopped - Provider: Mary Jo Allen RN) promethazine (Phenergan) tablet 25 mg (COMPLETED) 25 mg, oral, Once, On Sis 01/15/25 at 0345, For 1 dose 0515 (Given - Provid er: Mary Jo Allen RN) Scheduled Medication Order 02/13/2025 02/14/2025 02/15/2025 acetaminophen (Tylenol) tablet 975 mg 975 mg, oral, Every 6 hours scheduled, First dose on Sis 02/12/25 at 1400, Give with Ibuprofen, If ordered PRN for pain, nurse is permitted to administer this medication for higher pain scores based on patient preference? Yes 3651 (Given - Provider: Domingo Ortega RN - Comment: per pt request)1214 (Given - Provider: Afshan Chino RN)1819 (Given - Provider: Lexii Liz RN)2337 (Given - Provider: Lily Babcock RN) 0636 (Given - Provider: Lily Babcock RN)1249 (Given - Provider: Myriam Damian RN)2053 (Given - Provider: Lexii Diane RN) 0512 (Given - Provider: Lexii Diane RN - Comment: pt request)1100 (Due - Provider: Ascencion Ramirez, PharmD)1700 (Due - Provider: Ascencion Ramirez, PharmD)2300 (Due - Provider: Ascencion Ramirez, PharmD) docusate sodium (Colace) capsule 100 mg 100 mg, oral, 2 times daily, First dose on Sun02/13/25 at 1245 1446 (Not Given - Provider: Afshan Chino RN - Reason: Patient not available)2154 (Not Given - Provider: Lily Babcock RN - Reason: Patient/family refused) 0818 (Not Given - Provider: Myriam Damian RN - Reason: Patient/family refused)2053 (Not Given - Provider: Lexii Diane RN - Reason: Patient/family refused) 1046 (Not Given - Provider: Myriam Damian RN - Reason: Order parameters not met - Comment: patient has diarrhea)2100 (Due) doxepin (SINEquan) capsule 75 mg 75 mg, oral, Nightly, First dose on Sun02/09/25 at 2100 2154 (Given - Provider: Lily Babcock RN) 2053 (Given - Provider: Lexii Diane RN) 2100 (Due) hydrOXYzine HCL (Atarax) tablet 50 mg 50 mg, oral, Once, On Sun02/11/25 at 1815, For 1 dose ibuprofen tablet 600 mg 600 mg, oral, Every 6 hours scheduled, First dose on Sun02/12/25 at 1400, Give with Acetaminophen, If ordered PRN for pain, nurse is permitted to administer this medication for higher pain scores based on patient preference? Yes 0108 (Not Given - Provider: Domingo Ortega RN - Reason: Patient/family refused)0600 (Not Given - Provider: Domingo Ortega RN - Reason: Patient/family refused)1218 (Not Given - Provider: Afshan Chino RN - Reason: Patient/family refused)1818 (Not Given - Provider: Lexii Liz RN - Reason: Patient/family refused)2328 (Not Given - Provider: Lily Babcock RN - Reason: Patient/family refused) 0612 (Not Given - Provider: Lily Babcock RN - Reason: Patient/family refused)1245 (Not Given - Provider: Myriam Damian RN - Reason: Patient/family refused - Comment: d/t Chron's per patient)1800 (Due) 0500 (Not Given - Provider: Lexii Diane RN - Reason: Patient/family refused)1100 (Due - Provider: Ascencion Ramirez, PharmD)1700 (Due - Provider: Ascencion Ramirez, PharmD)2300 (Due - Provider: Ascencion Ramirez, PharmD) ketorolac (Toradol) injection 15 mg (COMPLETED) 15 mg, intravenous, Once, On Sun02/13/25 at 0145, For 1 dose 0248 (Given - Provider: Domingo Ortega RN - Comment: pt fell asleep) lidocaine 4 % patch 1 patch 1 patch, transdermal, Administer over 12 Hours, Daily, First dose on Sun02/13/25 at 0145, Apply to affected area. Patch will remain on for 12 hours, then removed for [address] patch directly over any surgical incisions or wounds. 0249 (Medication Applied - Provider: Domingo Ortega RN - Comment: pt fell asleep, placed on back)0645 (Medication Removed - Provider: Domingo Ortega RN - Comment: pt states the patch was coming off, so she took it off her back)1154 (JAN Hold - Provider: Automatic Transfer Provider - Reason: Unreviewed Transfer Orders)1857 (JAN Unhold - Provider: Suzette Galindo MD) 0801 (Medication Applied - Provider: Myriam Damian RN - Comment: BACK)2000 (Due: Medication Removed - Provider: Myriam Damian RN) 1025 (Medication Applied - Provider: Myriam Damian RN - Comment: back)2225 (Due: Medication Removed - Provider: Myriam Damian RN) NIFEdipine ER (Adalat CC) 24 hr tablet 30 mg 30 mg, oral, Nightly, First dose on Sun02/14/25 at 0045, Give on an empty stomach. Do not crush, chew, or split. 0150 (Given - Provider: Lily Babcock RN)2054 (Given - Provider: Lexii Diane, DOUG) 2100 (Due) NIFEdipine ER (Adalat CC) 24 hr tablet 60 mg 60 mg, oral, Daily before breakfast, First dose (after last modification) on Sun02/13/25 at 0700, Give on an empty stomach. Do not crush, chew, or split. 0645 (Given - Provider: Domingo Ortega RN)1154 (JAN Hold - Provider: Automatic Transfer Provider - Reason: Unreviewed Transfer Orders)1857 (JAN Unhold - Provider: Suzette Galindo MD) 0637 (Given - Provider: Lily Babcock RN) 0638 (Given - Provider: Lexii Diane RN) oxytocin (Pitocin) bolus from bag 600 monty-units/min (600 mL/hr), intravenous, Administer over 30 Minutes, Once, On Sun02/13/25 at 0545, For 1 dose, Conditional order. 600 milliunits/min x 30 min, then 60 milliunits/min for the remainder of the bag. Consult Provider prior to administration. 0559 (Canceled Entry - Provider: Domingo Ortega RN) pantoprazole (ProtoNix) EC tablet 40 mg 40 mg, oral, Daily before breakfast, First dose on Sun02/09/25 at 0700, Do not crush, chew, or split. 0645 (Given - Provider: Domingo Ortega RN) 0636 (Given - Provider: Lily Babcock RN) 0638 (Given - Provider: Lexii Diane RN) Continuous Medication Order 02/13/2025 02/14/2025 02/15/2025 lactated Ringer's infusion () 75 mL/hr, intravenous, Continuous, Starting on Sun02/12/25 at 1530, For 1 day 0430 (New Bag - Provider: Domingo Ortega RN)1131 (Stopped - Provider: Gracie Hooks RN) magnesium sulfate 20 gram/500 mL (4 %) infusion 2 g/hr (50 mL/hr), intravenous, Continuous, Starting on Sun02/09/25 at 1700, Monitor blood pressure, pulse, respirations and pulse oximetry every 15 minutes first hour of Magnesium Sulfate administration, then every hour. Monitor for signs and symptoms of magnesium toxicity including: STEREOTYPER HELPER depression, diminished DTRs, increasing muscle weakness, respirations < 12, change in lung sounds, pulse ox less than 96% (antepartum/intrapartum) or less than 92% (), decrease in baseline blood pressure, chest pain, urine output < 0.5 mL/kg/hr If signs of toxicity are present: notify physician immediately, discontinue magnesium sulfate & obtain stat serum magnesium level, administer calcium Gluconate 1 gram for immediate administration 0025 (Rate/Dose Verify - Provider: Domingo Ortega RN)0043 (Restarted - Provider: Domingo Ortega RN)0134 (Rate/Dose Verify - Provider: Domingo Ortega RN)0235 (Rate/Dose Verify - Provider: Domingo Ortega RN)0330 (Rate/Dose Verify - Provider: Domingo Ortega RN)0430 (Rate/Dose Verify - Provider: Domingo Ortega RN)0530 (Rate/Dose Verify - Provider: Domingo Ortega RN)0630 (Rate/Dose Verify - Provider: Domingo Ortega RN)0730 (Rate/Dose Verify - Provider: Gracie Hooks RN)0831 (Rate/Dose Verify - Provider: Gracie Hooks RN)0916 (Rate/Dose Verify - Provider: Gracie Hooks RN)1032 (Rate/Dose Verify - Provider: Gracie Hooks RN)1130 (Stopped - Provider: Gracie Hooks RN)1131 (Canceled Entry - Provider: Gracie Hooks RN - Comment: Cancelled from back documented administration.) PRN Medication Order 02/13/2025 02/14/2025 02/15/2025 benzocaine-menthoL (Dermoplast) topical spray 1 Application 1 Application, Topical, 4 times daily PRN, irritation, Discomfort, Starting on Sun02/13/25 at 0452, Apply to perianal area Hold can 6-12 inches away from affected area while applying. bisacodyl (Dulcolax) suppository 10 mg 10 mg, rectal, Daily PRN, constipation, first line, Severe, Starting on Sun02/13/25 at 0452 0826 (Due) calcium carbonate (Tums) chewable tablet 500 mg 500 mg, oral, 4 times daily PRN, indigestion, heartburn, Starting on Sun02/11/25 at 1604, Each 500 mg calcium carbonate tablet = 200 mg of elemental calcium. carboprost (Hemabate) injection 250 mcg 250 mcg, intramuscular, Once as needed, bleeding in non-asthmatic patient, Starting on Sun02/13/25 at 0517, For 1 dose, Consult provider prior to administration cyclobenzaprine (Flexeril) tablet 10 mg 10 mg, oral, 3 times daily PRN, muscle spasms, cramping, Starting on Sun02/13/25 at 0126 0248 (Given - Provider: Domingo Ortega RN)1154 (JAN Hold - Provider: Automatic Transfer Provider - Reason: Unreviewed Transfer Orders)1857 (MAR Unhold - Provider: Suzette Galindo MD)2154 (Given - Provider: Lily Babcock RN) 1506 (Given - Provider: Myriam Damian RN) diphenhydrAMINE (BENADryl) capsule 25 mg(Linked Group 1) 25 mg, oral, Every 6 hours PRN, itching, Starting on Sun02/13/25 at 0517 2317 (See Alternative - Provider: Lily Babcock RN) 163 (Not Given - Provider: Myraim Damian RN - Reason: Other - Comment: patient asleep)2154 (See Alternative - Provider: Lexii Diane RN) diphenhydrAMINE (BENADryl) injection 25 mg(Linked Group 1) 25 mg, intravenous, Administer over 2 Minutes, Every 6 hours PRN, itching, Starting on Sun02/13/25 at 0517 2317 (Given - Provider: Lily Babcock RN) 163 (See Alternative - Provider: Myriam Damian RN)2154 (Given - Provider: Lexii Diane RN) hydrALAZINE (Apresoline) injection 5 mg 5 mg, intravenous, Once as needed, SBP greater than or equal to 160 OR DBP greater than or equal to 110 without known, suspected CAD, Starting on Sun02/13/25 at 0452, For 1 dose, Consult provider prior to administration. Push over more than 2 minutes. Contraindications: coronary artery disease (CAD); Caution in suspected CAD. labetaloL (Normodyne,Trandate) injection 20 mg 20 mg, intravenous, Once as needed, SBP greater than or equal to 160 OR DBP greater than or equal to 110 without active asthma, bradycardia <60, Starting on Sun02/13/25 at 0452, For 1 dose, Consult provider prior to administration. Push over more than 2 minutes. Contraindications: active asthma, heart disease, heart failure, maternal bradycardia < 60. lanolin (Lansinoh) 100 % cream 1 Application 1 Application, Topical, Every 24 hours PRN, dry skin, Starting on Sun02/13/25 at 0517, Apply to nipple after and PRN loperamide (Imodium) capsule 4 mg 4 mg, oral, Every 2 hour PRN, diarrhea, If Carboprost given or loose stools, Starting on Sun02/13/25 at 0452, For 4 doses, Max dose of 16mg / 24 hours. magnesium hydroxide (Milk of Magnesia) 400 mg/5 mL suspension 10 mL 10 mL, oral, Every 24 hours PRN, constipation, second line, Starting on Sun02/13/25 at 0517, Follow administration with 8 ounces of water. methylergonovine (Methergine) injection 0.2 mg 0.2 mg, intramuscular, Once as needed, PPH in pts w/o HTN or receiving ART for HIV mgmt, Starting on Sun02/13/25 at 0517, For 1 dose, Consult provider prior to administration miSOPROStoL (Cytotec) tablet 800 mcg 800 mcg, rectal, Once as needed, bleeding, Starting on Sun02/13/25 at 0517, For 1 dose, Consult provider prior to administration NIFEdipine (Procardia) capsule 10 mg 10 mg, oral, Once as needed, SBP greater than or equal to 160 OR DBP greater than or equal to 110 without IV access/ oral preferred, Starting on Sun02/13/25 at 0517, For 1 dose, Consult provider prior to administration. Capsules administered orally and swallowed whole; Do not puncture or crush; Do not administer sublingually. ondansetron (Zofran) injection 4 mg(Linked Group 2) 4 mg, intravenous, Every 6 hours PRN, nausea/vomiting, first line, Starting on Sun02/13/25 at 0517, Give IV if patient is unable to take orally. When administering via IV Push, administer over 3-5 minutes. ondansetron (Zofran) tablet 4 mg(Linked Group 2) 4 mg, oral, Every 6 hours PRN, nausea/vomiting, first line, Starting on Sun02/13/25 at 0517 oxytocin (Pitocin) injection 10 Units 10 Units, intramuscular, Once as needed, bleeding (if no IV access), Starting on Sun02/13/25 at 0517, For 1 dose, Conditional order, consult Provider prior to administration polyethylene glycol (Glycolax, Miralax) packet 17 g 17 g, oral, 2 times daily PRN, constipation, first line, Starting on Sun02/13/25 at 0453 1057 (Not Given - Provider: Gracie Hooks RN - Reason: Patient/family refused) sennosides-docusate sodium ([place]ison-Colace) 8.6-50 mg per tablet 2 tablet 2 tablet, oral, Nightly PRN, constipation, third line, Starting on Sun02/12/25 at 1444 simethicone (Mylicon) chewable tablet 80 mg 80 mg, oral, 4 times daily PRN, flatulence, Starting on Sun02/13/25 at 0453 tranexamic acid (Cyklokapron) injection 1,000 mg 1,000 mg, intravenous, Once as needed, bleeding in all patients, Starting on Sun02/13/25 at 0517, For 1 dose, Consult provider prior to administration, Tranexamic Acid Indication: Hemorrhage: PHOTOGRAPHIC AIDE witch carlo (Tucks) pads 1 each 1 each, Topical, 4 times daily PRN, hemorrhoids, Discomfort, Starting on Sun02/13/25 at 0517, Apply to perineum May self- administer after voiding Linked Groups Order Group 1: diphenhydrAMINE (BENADryl) injection 25 mgJump to med 25 mg, intravenous, Administer over 2 Minutes, Every 6 hours PRN, itching, Starting on Sun02/13/25 at 0517 Or diphenhydrAMINE (BENADryl) capsule 25 mgJump to med 25 mg, oral, Every 6 hours PRN, itching, Starting on Sun02/13/25 at 0517 Group 2: ondansetron (Zofran) tablet 4 mgJump to med 4 mg, oral, Every 6 hours PRN, nausea/vomiting, first line, Starting on Sun02/13/25 at 0517 Or ondansetron (Zofran) injection 4 mgJump to med 4 mg, intravenous, Every 6 hours PRN, nausea/vomiting, first line, Starting on Sun02/13/25 at 0517, Give IV if patient is unable to take orally. When administering via IV Push, administer over 3-5 minutes. Scheduled Medication Order 02/14/2025 02/15/2025 02/16/2025 acetaminophen (Tylenol) tablet 975 mg (COMPLETED) 975 mg, oral, Once, On Sun02/16/25 at 1445, For 1 dose, If ordered PRN for pain, nurse is permitted to administer this medication for higher pain scores based on patient preference? Yes 1434 (Given - Provid er: Rossy Hein RN) cyclobenzaprine (Flexeril) tablet 10 mg (COMPLETED) 10 mg, oral, Once, On Sun02/16/25 at 1445, For 1 dose 1436 (Given - Provid er: Rossy Hein RN) PRN Medication Order 02/14/2025 02/15/2025 02/16/2025 hydrALAZINE (Apresoline) injection 5 mg 5 mg, intravenous, Administer over 2 Minutes, Once as needed, systolic blood pressure greater than or equal to 160 OR diastolic blood pressure greater than or equal to 110, Starting on Sun02/16/25 at 1417, For 1 dose, Consult provider prior to administration. Push over more than 2 minutes. Repeat blood pressure in 20 minutes. labetaloL (Normodyne,Trandate) injection 20 mg 20 mg, intravenous, Administer over 2 Minutes, Once as needed, systolic blood pressure greater than or equal to 160 OR diastolic blood pressure greater than or equal to 110, Starting on Sun02/16/25 at 1417, For 1 dose, Consult provider prior to administration. Push over more than 2 minutes. Repeat blood pressure in 10 minutes. lidocaine (Xylocaine) 10 mg/mL (1 %) injection 0.5 mL 0.5 mL, subcutaneous, Once as needed, Prior to IV insertion, Starting on Sun02/16/25 at 1417, For 1 dose NIFEdipine (Procardia) capsule 10 mg 10 mg, oral, Once as needed, systolic blood pressure greater than or equal to 160 OR diastolic blood pressure greater than or equal to 110, Starting on Sun02/16/25 at 1418, For 1 dose, Consult provider prior to administration. Capsules administered orally and swallowed whole; Do not puncture or crush; Do not administer sublingually ondansetron (Zofran) injection 4 mg(Linked Group 1) 4 mg, intravenous, Every 6 hours PRN, nausea/vomiting, first line, Starting on Sun02/16/25 at 1417, Give IV if patient is unable to take orally. When administering via IV Push, administer over 3-5 minutes. ondansetron (Zofran) tablet 4 mg(Linked Group 1) 4 mg, oral, Every 6 hours PRN, nausea/vomiting, first line, Starting on Sun02/16/25 at 1417, Use oral route first, if possible. Linked Groups Order Group 1: ondansetron (Zofran) tablet 4 mgJump to med 4 mg, oral, Every 6 hours PRN, nausea/vomiting, first line, Starting on Sun02/16/25 at 1417, Use oral route first, if possible. Or ondansetron (Zofran) injection 4 mgJump to med 4 mg, intravenous, Every 6 hours PRN, nausea/vomiting, first line, Starting on Sun02/16/25 at 1417, Give IV if patient is unable to take orally. When administering via IV Push, administer over 3-5 minutes. Scheduled Medication Order 02/27/2025 02/28/2025 03/01/2025 furosemide (Lasix) tablet 40 mg (COMPLETED) 40 mg, oral, Once, On 03/01/25 at 1800, For 1 dose 1751 (Given - Provid er: Gregory Harrell RN) PRN Medication Order 02/27/2025 02/28/2025 03/01/2025 hydrALAZINE (Apresoline) injection 5 mg 5 mg, intravenous, Administer over 2 Minutes, Once as needed, Systolic greater than or equal to 160 OR Diastolic greater than or equal to 110, Starting on Sun03/01/25 at 1648, For 1 dose, Consult provider prior to administration. Push over more than 2 minutes. Systolic greater than or equal to 160 OR Diastolic greater than or equal to 110. Repeat blood pressure in 20 minutes. Contraindication: coronary artery disease (CAD); Caution in suspected CAD labetaloL (Normodyne,Trandate) injection 20 mg 20 mg, intravenous, Administer over 2 Minutes, Once as needed, Systolic greater than or equal to 160 OR Diastolic greater than or equal to 110, Starting on 03/01/25 at 1648, For 1 dose, Consult provider prior to administration. Push over more than 2 minutes. Systolic greater than or equal to 160 OR Diastolic greater than or equal to 110. Repeat blood pressure in 10 minutes. Contraindications: active asthma, heart disease, heart failure, maternal bradycardia < 60. lidocaine (Xylocaine) 10 mg/mL (1 %) injection 0.5 mL 0.5 mL, subcutaneous, Once as needed, Prior to IV insertion, Starting on 03/01/25 at 1648, For 1 dose NIFEdipine (Procardia) capsule 10 mg 10 mg, oral, Once as needed, Systolic greater than or equal to 160 OR Diastolic greater than or equal to 110, Starting on 03/01/25 at 1648, For 1 dose, Consult provider prior to administration. FOR RECORDS PERTAINING TO PATIENTS WHO ARE [...] BE BASED ON THE PRIMARY CLINICAL RECORDS. [employer] [facility]. provides no warranty or guarantee of the accuracy or completeness of information in this document.
--- OUTSIDE RECORDS SUMMARY | 2025-05-20 04:44 | XMS RPT_ITS | CCD ---
Author Organization [facility] Care Team Providers Care Cook Helper Fruit Name Role Phone JAYDEN PÉREZ Unavailable Unavailable PROVIDER, UNKNOWN Unavailable Unavailable No, PCP Unavailable Unavailable MAYELA ELLIOTT Unavailable Unavailable FREDDIE SHAW V Unavailable Unavailable YEIMY PEREIRA Unavailable Unavailable Jade Oquendo S Unavailable Unavailable Jade Oquendo S Unavailable Unavailable Nirmal Maddox Unavailable Unavailable Nirmal Maddox Unavailable Unavailable Swapna Izquierdo Unavailable Unavailable Swapna Izquierdo Unavailable Unavailable Freddie Tinoco Unavailable [phone] AMBERLY MORGAN Unavailable Unavailable SELF, REFERRED Unavailable Unavailable PROVIDER, UNKNOWN Unavailable Unavailable FREDDIE TINOCO Unavailable Unavailable CAHSE PARHAM Unavailable Unavaila STU Campos Unavailable UnaARIANNE [...] Provider Un available MITCHEL Keene Attending Provider [phone] NO, PHYSICIAN Primary Care Unavailable JEANETTE BEAL Attending Unavailabl LILY Hsu Consulting Unavailab le NO, PHYSICIAN Primary Care Unavailable EMERGENCY, TRIAGE PROTOCOL Admitting Unava ilable EMERGENCY, TRIAGE PROTOCOL Referring Unava ilable Care Physician, No Primary Primary Care Provider Unavailable Care Physician, No Primary Referring Provider Un available MITCHEL Keene Attending Provider DOUGIE SEAMAN, DR BORREGO Attending Unavailabl e [...] e Provider Unavailable Earl Colorado MD Unavailable [phone] Generic Provider , No Assigned Pcp [...] Care Unavailabl e Major Mejia Attending Unavailable [facility] UnavailMarisol Edwards Attending [...] No Primary Primary Care Unava ilable [facility], Leticia Primary Care Unavailabl e Nito Nur [...] Pacheco VSC, Leticia Primary Care Unavailabl e [place]lig[place], Santi Attending Unavailable Esther SEAMAN Zoë Primary [...] [HYDROCORTISONE SOD SUCCINATE] Drug Allergy 08-07-20 15 [facility] (4 sources) metroNIDAZOLE; Translations: [METRONIDAZOLE HCL] Drug Allergy 08-07-20 15 [facility] (20 sources) midazolam; Translations: [MIDAZOLAM] Drug Allergy 03-12-20 15 Anxiety, Nausea Only [facility] (7 sources) Penicillins; Translations: [PENICILLINS] Propensity to adverse reactions to drug 02-04-20 14 Itching [facility] (8 sources) buPROPion; Translations: [BUPROPION] Drug Allergy 10-13-20 16 Hallucinations , Rash [facility] Work Phone: (2 sources) Ciprofloxacin; Translations: [CIPROFLOXACIN HCL] Drug Allergy 05-20-20 15 Swelling [facility] Work Phone: (8 sources) Ciprofloxacin; Translations: [CIPROFLOXACIN] Drug Allergy 05-20-20 15 Swelling [facility] Work Phone: (7 sources) Citalopram; Translations: [CITALOPRAM] Drug Allergy 11-12-19 17 Anxiety [facility] Work Phone: (2 sources) clonazePAM; Translations: [CLONAZEPAM] Drug Allergy 10-13-20 16 [facility] Work Phone: (2 sources) Hydrocortisone; Translations: [HYDROCORTISONE] Drug Allergy 08-07-20 15 [facility] Work Phone: (5 sources) methylPREDNISolone; Translations: [METHYLPREDNISOLONE] Drug Allergy 03-12-20 15 Anaphylaxis [facility] Work Phone: (1 source) methylPREDNISolone Drug Allergy 03-12-20 15 [facility] Work Phone: (7 sources) metroNIDAZOLE; Translations: [METRONIDAZOLE] Drug Allergy 08-07-20 15 Diarrhea [facility] Work Phone: (15 sources) Midazolam; Translations: [MIDAZOLAM HCL] Drug Allergy 09-23-20 12 Other [facility] Work Phone: (2 sources) Morphine; Translations: [MORPHINE] Drug Allergy 09-23-20 12 [facility] Work Phone: (1 source) Penicillins Propensity to adverse reactions to drug 09-01-20 15 Itching [facility] Work Phone: (6 sources) Sertraline; Translations: [SERTRALINE] Drug Allergy 10-08-20 12 Unknown [facility] Work Phone: (17 sources) Benzocaine; Translations: [BENZOCAINE] Drug Allergy 08-18-20 22 Anaphylaxis [facility] (17 sources) butamben; Translations: [BUTAMBEN] Drug Allergy 08-18-20 22 Anaphylaxis [facility] (13 sources) methylPREDNISolone; Translations: [methylprednisolone sodium succinate] Drug Allergy 08-18-20 Anaphylaxis [facility] (17 sources) Tetracaine; Translations: [TETRACAINE] Drug Allergy 08-18-20 22 Anaphylaxis [facility] (6 sources) Adhesive agent; Translations: [ADHESIVE] Propensity to adverse reactions to drug (disorder) 11-07-19 14 Rash [facility] Repository (1 source) Amoxicillin; Translations: [AMOXICILLIN] Drug Allergy 02-04-20 14 [facility] Repository (7 sources) gabapentin; Translations: [GABAPENTIN] Drug Allergy 12-25-19 14 Unknown, Other [facility] Repository (6 sources) Propofol; Translations: [PROPOFOL] Drug Allergy 02-19-20 14 Other [facility] Repository (1 source) Sertraline; Translations: [SERTRALINE HCL] Drug Allergy 10-08-20 12 [facility] Repository (1 source) METHYLPREDNISOLONE SODIUM SUCC; Translations: [METHYLPREDNISOLONE SODIUM SUCC] Propensity to adverse reactions to drug (disorder) 09-23-20 12 [facility] Repository (7 sources) Metoclopramide; Translations: [METOCLOPRAMIDE] Drug Allergy 02-22-20 24 Other [facility] (1 source) Penicillins Propensity to adverse reactions 02-04-20 14 Hives, Itching, Unknown [facility] (17 sources) Metoclopramide; Translations: [METOCLOPRAMIDE HCL] Drug Allergy 12-24-19 25 Other [facility] (17 sources) Solu-Medrol Mix-O-Vial; Translations: [SOLU-MEDROL MIX-O-VIAL] Propensity to adverse reactions 12-23-19 25 Anaphylaxis [facility] (3 sources) Penicillins Propensity to adverse reactions 02-04-20 14 Hives, Itching, Other, Unknown [facility] Work Phone: (1 source) Benzocaine Drug Allergy 04-30-20 [facility] Repository (1 source) butamben Drug Allergy 04-30-20 [facility] Repository (1 source) methylPREDNISolone Drug Allergy 04-30-20 [facility] Repository (1 source) Metoclopramide Drug Allergy 04-30-20 [facility] Repository (1 source) Midazolam Drug Allergy 04-30-20 [facility] Repository (1 source) Sertraline Drug Allergy 04-30-20 [facility] Repository (1 source) Tetracaine Drug Allergy 04-30-20 [facility] Repository Medications Current Medications Medication Drug Class(es) [...] gestational diabetes mellitus (GDM) in second trimester ([facility]) Use for testing blood sugar fasting and 1 hour after each meal. 4-6 times per day during 1 each 12/25/2024 12:13 PM EST 12/25/2024 Active blood-glucose sensor (Dexcom G7 Sensor) device (15 sources) Start: 03-01-2025 blood-glucose sensor (Dexcom G7 Sensor) device Indications: Insulin controlled gestational diabetes mellitus (GDM) in second trimester ([facility]) Use 1 sensor and change every 10 days 3 each 2 03/01/2025 Active Start: 02-03-2025 End: 03-01-2025 blood-glucose sensor (Dexcom G7 Sensor) device Indications: Insulin controlled gestational diabetes mellitus (GDM) in second trimester ([facility]) Use 1 sensor and change every 10 days 3 each 02/03/2025 03/01/2025 Discontinued Start: 02-03-2025 blood-glucose sensor (Dexcom G7 Sensor) device Indications: Insulin controlled gestational diabetes mellitus (GDM) in second trimester ([facility]) Use 1 sensor and change every 10 days 3 each 02/03/2025 Active Start: 12-29-2024 blood-glucose sensor (Dexcom G7 Sensor) device Indications: Insulin controlled gestational diabetes mellitus (GDM) in second trimester ([facility]) Use 1 sensor and change every [...] mg tablet Indications: care following vaginal delivery ([facility]) Take 1 tablet (10 mg) by [...] mg tablet Indications: Headache in , antepartum ([facility]) Take 1 tablet (5 mg) by [...] 1245 docusate sodium 50 mg / sennosides, group home 8.6 mg oral tablet (1 source) Start: 02-12-2025 doxepin hydrochloride 75 mg oral capsule (20 sources) Tricyclic Antidepressant Start: 12-23-2024 End: 03-02-2025 take 1 capsule by mouth once daily at bedtime doxepin (SINEquan) 75 mg capsule Indications: Depression affecting in third trimester, antepartum ([facility]) Take 1 capsule [...] 05, 2023 12:00am 21 day ethinyl estradiol 0.635619 mg/hr / etonogestrel 0.005 mg/hr vaginal ring [...] Indications: Depression affecting in third trimester, antepartum ([facility]) Take 2.5 tablets [...] gestational diabetes mellitus (GDM) in second trimester ([facility]) Use 1, up [...] signs and symptoms of magnesium toxicity including: NEMATOLOGIST depression, diminished DTRs, increasing muscle weakness, respirations [...] administration. Start: 02-16-2025 take 1 capsule by [facility] once as needed 10 mg, oral, Once [...] by mouth daily Active polyethylene glycol 3350 52879 mg powder for oral solution (2 sources) Osmotic Laxative Start: 02-13-2025 Start: 12-23-2024 Ahllpcyp-Ufc-Sl-FA ( 1 + IRON PO) (1 source) Whxqdltw-Ayb-Qt-FA ( 1 + IRON PO) Take 1 [...] mg tablet Indications: care following vaginal delivery ([facility]) Take 3 tablets [...] Opioid Agonist Start: 11-17-2023 End: 03-03-2025 HYDROcodone-acetaminophen ([place]) 5-325 mg tablet Take by mouth. 11/17/2023 [...] gestational diabetes mellitus (GDM) in second trimester ([facility]) Inject 40 units twice daily. 24 mL 1 03/09/2025 Active Start: 03-01-2025 inject 40 [IU] by mistry bcutaneous injection once daily insulin glargine (Lantus) 100 unit/mL (3 mL) pen Indications: Insulin controlled gestational diabetes mellitus (GDM) in second trimester ([facility]) Inject 40 Units under the skin [...] 01-06-2025 End: 02-15-2025 insulin NPH, Isophane, (Rodrigo CHARLENE N FlexPen) 100 unit/mL (3 mL) pen Indications: Insulin controlled gestational diabetes mellitus (GDM) in second trimester ([facility]) Inject 40 units in the morning and 50 units at night. May increase to 150 units total per day during as needed. 45 mL 3 01/06/2025 02/15/2025 Discontinued (Stop Taking at Discharge) Start: 01-01-2025 End: 01-01-2025 insulin NPH, Isophane, (Rodrigo CHARLENE N FlexPen) 100 unit/mL (3 mL) injection Indications: Insulin controlled gestational diabetes mellitus (GDM) in second trimester ([facility]) Inject 30 units in the morning and 40 units at night. May increase to 100 units total per day during as needed. 30 mL 3 01/01/2025 Active Start: 12-25-2024 End: 01-01-2025 insulin NPH, Isophane, (Rodrigo CHARLENE N FlexPen) 100 unit/mL (3 mL) injection Indications: Insulin controlled gestational diabetes mellitus (GDM) in second trimester ([facility]) Inject 20 units in the morning [...] gestational diabetes mellitus (GDM) in second trimester ([facility]) Inject 10 Units [...] gestational diabetes mellitus (GDM) in second trimester ([facility]) Inject 25 units with each meal. May increase to 150 units total per day during as needed. 45 mL 3 01/29/2025 02/15/2025 Discontinued (Stop Taking at Discharge) Start: 01-06-2025 insulin lispro (HumaLOG KwikPen Insulin) 100 unit/mL pen Indications: Insulin controlled gestational diabetes mellitus (GDM) in second trimester ([facility]) Inject 25 units with each meal. May increase to 150 units total per day during as needed. 45 mL 3 01/06/2025 Active Start: 01-01-2025 End: 01-01-2025 insulin lispro (HumaLOG Kwik Pen Insulin) 100 unit/mL injection Indications: Insulin controlled gestational diabetes mellitus (GDM) in second trimester ([facility]) Inject 15-20 units with each meal. May increase to 100 units total per day during as needed. 30 mL 3 01/01/2025 Active Start: 12-25-2024 End: 01-01-2025 insulin lispro (HumaLOG Kwik Pen Insulin) 100 unit/mL injection Indications: Insulin controlled gestational diabetes mellitus (GDM) in second trimester ([facility]) Inject 10 units [...] Start: 07-31-2018 take 25 mg rectal ro morongo every eight hours as needed promethazine 25 MG Suppository suppository Insert 1 suppository rectally every 8 hours as needed for Nausea / Vomiting (Nausea/Vomiting). 12 suppository 0 07/31/2018 Active take 25 mg rectal ro morongo once daily as needed for nausea promethazine [...] 3 day Indications: 32 weeks gestation of ([facility]) Place 1 patch [...] 5 10-10-2017 Chronic Other aftercare (2 sources) intermediate (current) use of insulin; Translations: [intermediate (current) use of insulin (Multi)] Onset: 5 [...] trimester; Translations: [Obesity complicating , third trimester ([facility])] Onset: 5 Chronic Other complications of [...] 8 Unclassified (1 source) Non-stress Test / [id number]() Onset: 8 Unclassified (1 source) Chest pain, [...] 7 06-26-2017 Episodic Other aftercare (2 sources) 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; Translations: [intermediate (current) use of aspirin] Onset: 7 Episodic [...] [Other mental disorders complicating , second trimester ([facility])] Onset: 5 Episodic Other complications of (2 sources) Other specified related conditions, third trimester; Translations: [Other specified related conditions, third trimester ([facility])] Onset: 5 Episodic Other complications of (2 sources) Other specified related conditions, second trimester; Translations: [Other specified related conditions, second trimester ([facility])] Onset: 5 Episodic Other complications of (2 sources) Maternal care for other abnormalities of cervix, second trimester; Translations: [Maternal care for other abnormalities of cervix, second trimester ([facility])] Onset: 5 Episodic Other complications of (2 sources) Other specified related conditions, unspecified trimester; Translations: [Other specified related conditions, unspecified trimester ([facility])] Onset: 5 Episodic [...] of ; Translations: [29 weeks gestation of ([facility])] Onset: 5 Episodic Residual codes; unclassified (1 source) 32 weeks gestation of ; Translations: [32 weeks gestation of ([facility])] Onset: 5 Episodic Residual codes; unclassified (1 source) 30 weeks gestation of ; Translations: [30 weeks gestation of ([facility])] Onset: 5 Episodic Residual codes; unclassified (1 source) 28 weeks gestation of ; Translations: [28 weeks gestation of ([facility])] Onset: 5 Episodic Residual codes; unclassified (1 source) 27 weeks gestation of ; Translations: [27 weeks gestation of ([facility])] Onset: 5 Episodic Residual codes; unclassified (1 source) 26 weeks gestation of ; Translations: [26 weeks gestation of ([facility])] Onset: 5 Episodic Respiratory failure; insufficiency; [...] Reference Range Facility MR/BMS.BPon 04-30-2025 MR/BMS.BP Normal [facility] MR/BMS.BPon 04-24-2025 MR/BMS.BP Normal [facility] MR/BMS.BPon 04-14-2025 MR/BMS.BP Normal [facility] MR/BMS.BPon 04-07-2025 MR/BMS.BP Normal [facility] MR/BMS.BPon 04-02-2025 MR/BMS.BP Normal [facility] MR/BMS.BPon 03-24-2025 MR/BMS.BP Normal [facility] MR/BMS.BPon 03-18-2025 MR/BMS.BP Normal [facility] BASIC METABOLIC PANEL WITH A NION GAPon 03-11-2025 BUN/CREATININE RATIO SEE NOTE: Normal 6-22 [facility] Comment on above: Order Comment: FASTI NG:NO FASTING: NO Result Comment: Not Reported: BUN and Creatinine are within reference range. Performed By: #### 9 [id number] #### [facility] [place] [address] Lab Instructor: Salvador Swanson MD Calcium [Mass/Vol] 8.9 mg/dL Normal 8.6-10.2 [facility] Comment on above: Order Comment: FASTI NG:NO FASTING: NO Performed By: #### 9 8548 #### [facility] [place] [address] Lab Instructor: Salvador Swanson MD Chloride [Moles/Vol] 107 mmol/L Normal 98-110 [facility] Comment on above: Order Comment: FASTI NG:NO FASTING: NO Performed By: #### 9 9038 #### [facility] [place] [address] Lab Instructor: Salvador Swanson MD CO2 [Moles/Vol] 22 mmol/L Normal 20-32 [facility] Comment on above: Order Comment: FASTI NG:NO FASTING: NO Performed By: #### 9 5508 #### [facility] [place] [address] Lab Instructor: Salvador Swanson MD Creatinine [Mass/Vol] 0.71 mg/dL Normal 0.50-0.[address] [facility] Comment on above: Order Comment: FASTI NG:NO FASTING: NO Performed By: #### 9 3458 #### [facility] [place] [address] Lab Instructor: Salvador Swanson MD ELECTROLYTE BALANCE 13 mmol/L (calc) Normal 7-17 [facility] Comment on above: Order Comment: FASTI NG:NO FASTING: NO Performed By: #### 9 1755 #### [facility] [place] [address] Lab Instructor: Salvador Swanson MD GFR/1.73 sq M.predicted among non-blacks MDRD (S/P/Bld) [Vol rate/Area] 113 mL/min/{1.73_m2} Normal > OR = 60 [facility] Comment on above: Order Comment: FASTI NG:NO FASTING: NO Performed By: #### 9 2498 #### [facility] [place] [address] Lab Instructor: Salvador Swanson MD Glucose [Mass/Vol] 77 mg/dL Normal 65-139 [facility] Comment on above: Order Comment: FASTI NG:NO FASTING: NO Result Comment: Non-fasting reference interval Performed By: #### 9 2498 #### [facility] [address], [address] [place] [address] Lab Instructor: Salvador Swanson MD Potassium [Moles/Vol] 3.9 mmol/L Normal 3.5-5.[address] [facility] [address] [facility] Comment on above: Order Comment: FASTI NG:NO FASTING: NO Performed By: #### 9 2498 #### [facility] [place] [address] Lab Instructor: Salvador Swanson MD Sodium [Moles/Vol] 142 mmol/L Normal 135-146 [facility] Comment on above: Order Comment: FASTI NG:NO FASTING: NO Performed By: #### 9 9658 #### [facility] [place] [address] Lab Instructor: Salvador Swanson MD Urea nitrogen [Mass/Vol] 8 mg/dL Normal 7-25 [facility] Comment on above: Order Comment: FASTI NG:NO FASTING: NO Performed By: #### 9 2498 #### [facility] [address], [address] [place] [address] Lab Instructor: Salvador Swanson MD Basic metabolic 2000 panelon 03-11-2025 Anion gap [Moles/Vol] 13 mmol/L [facility] Calcium [Mass/Vol] 8.9 mg/dL 8.6 - 10. 2 mg/dL [facility] Chloride [Moles/Vol] 107 mmol/L 98 - 11 0 mmol/L [facility] CO2 [Moles/Vol] 22 mmol/L 20 - 32 mmol/L [facility] Creatinine [Mass/Vol] 0.71 mg/dL 0.50 - 0.97 mg/dL [facility] GFR/1.73 sq M.predicted among non-blacks MDRD (S/P/Bld) [Vol rate/Area] 113 mL/min/{1.73_m2} > OR = 60 mL/min/1.73m 2 [facility] Glucose [Mass/Vol] 77 mg/dL 65 - 139 mg/dL [facility] Comment on above: Non-fasting reference interval Potassium [Moles/Vol] 3.9 mmol/L 3.5 - 5.3 mmol/L [facility] Sodium [Moles/Vol] 142 mmol/L 135 - 146 mmol/L [facility] Urea nitrogen [Mass/Vol] 8 mg/dL 7 - 25 mg/dL [facility] Urea nitrogen/Creatinine [Mass ratio] SEE NOTE: [facility] Comment on above: Not Reported: BUN an d Creatinine are within reference range. FASTING:NO FASTING: NO [facility] Glucose Test strip manual (B ld) [Mass/Vol]on 03-10-2025 Glucose [Mass/Vol] 123 mg/dL High 74 - 99 mg/dL [facility] Interpretation and review of laboratory results Abnormal [facility] Glucose [Mass/Vol] 123 mg/dL High 74-99 [facility] Comment on above: Performed By: #### 2 7298-9 #### QUIN Simon ([id number]) [facility] ([facility]) [id number] [place] [address] CBC (INCLUDES DIFF/PLT)on Basophils (Bld) [#/Vol] 0.053 10*3/uL Normal 0-200 [facility] Comment on above: Performed By: #### 7 845, 102, 6633, 33006, 83959 #### [facility] [address] [place] [address], [address] [place] [address] Lab Instructor: Salvador Swanson MD #### 945 #### [facility]/[address] [place], [place] Lab Instructor: Yaya Alvarez M.D.,PhD Basophils/100 WBC (Bld) 0.6 % Normal [facility] Comment on above: Performed By: #### 7 600, 622, 6399, 39510, 98701 #### [facility] of [address], [address] [place], [place] [address] Lab Instructor: Salvador Swanson MD #### 945 #### [facility] [place], [place] Lab Instructor: Yaya Alvarez M.D.,PhD Eosinophils (Bld) [#/Vol] 0.365 10*3/uL Normal 15-500 [facility] Comment on above: Performed By: #### 7 600, 622, 6399, 08516, 56002 #### [facility] [place] [address] Lab Instructor: Salvador Swanson MD #### 945 #### [facility] [place], [place] Lab Instructor: Yaya Alvarez M.D.,PhD Eosinophils/100 WBC (Bld) 4.1 % Normal [facility] Comment on above: Performed By: #### 7 600, 622, 6399, 33905, 04595 #### [facility] of [address], [address] [place], [place] [id number] Lab Instructor: Salvador Swanson MD #### 945 #### [facility] [place], [place] Lab Instructor: Yaya Alvarez M.D.,PhD Erythrocyte distribution width (RBC) [Ratio] 13.0 % Normal 11.0-15.0 [facility] Comment on above: Performed By: #### 7 600, 622, 6399, 72808, 92537 #### [facility] of [address], [address] [place], [place] [id number] Lab Instructor: Salvador Swanson MD #### 945 #### [facility] [place], [place] Lab Instructor: Yaya Alvarez M.D.,PhD Hematocrit (Bld) [Volume fraction] 37.1 % Normal 35.0-45.0 [facility] Comment on above: Performed By: #### 7 600, 622, 6399, 30781, 59099 #### [facility] of [place] [address], [address] [place], [place] [address] Lab Instructor: Salvador Swanson MD #### 945 #### [facility] [place], [place] Lab Instructor: Yaya Alvarez M.D.,PhD Hemoglobin (Bld) [Mass/Vol] 11.8 g/dL Normal 11.7-15.5 [facility] Comment on above: Performed By: #### 7 600, 622, 6399, 34316, 63733 #### [facility] of [place] [address] [address] , [address] [place], [place] [id number] Lab Instructor: Salvador Swanson MD #### 945 #### [facility] [address] [facility] [place], [place] Lab Instructor: Yaya Alvarez M.D.,PhD Lymphocytes (Bld) [#/Vol] 2.243 10*3/uL Normal 850-3900 [facility] Comment on above: Performed By: #### 7 600, 622, 6399, 49809, 89953 #### [facility] of [place] [address], [address] [place], [place] [address] Lab Instructor: Salvador Swanson MD #### 945 #### [facility] [address] [facility] [address] [place] Lab Instructor: Yaya Alvarez M.D.,PhD Lymphocytes/100 WBC (Bld) 25.2 % Normal [facility] Comment on above: Performed By: #### 7 600, 622, 6399, 11969, 84248 #### [facility] [address], [address] [place], [place] [address] Lab Instructor: Salvador Swanson MD #### 945 #### [facility]/[place] [address] [facility] [place], [place] Lab Instructor: Yaya Alvarez M.D.,PhD MCH (RBC) [Entitic mass] 26.9 pg Low 27.0-33.0 [facility] Comment on above: Performed By: #### 7 600, 622, 6399, 09453, 63880 #### [facility] [place] [id number] Lab Instructor: Salvador Swanson MD #### 945 #### [facility]/[place] [address] [facility] [place], [place] Lab Instructor: Yaya Alvarez M.D.,PhD MCHC (RBC) [Mass/Vol] 31.8 [...] Performed By: #### 7 600, 622, 6399, 22971, 12110 #### [facility] [address], [address] [place], [place] [address] Lab Instructor: Salvador Swanson MD #### 945 #### [facility] [place], [place] Lab Instructor: Yaya Alvarez M.D.,PhD MCV (RBC) [Entitic vol] 84.7 fL Normal 80.0-100.0 [facility] Comment on above: Performed By: #### 7 600, 622, 6399, 09635, 50685 #### [facility] of [address], [address] [place] [address] Lab Instructor: Salvador Swanson MD #### 945 #### [facility]/[address] [place], [place] Lab Instructor: Yaya Alvarez M.D.,PhD Monocytes (Bld) [#/Vol] 0.481 10*3/uL Normal 200-950 [facility] Comment on above: Performed By: #### 7 600, 622, 6399, 03555, 53441 #### [facility] of [place] [address] Lab Instructor: Salvador Swanson MD #### 945 #### [facility]/[address] [place] Lab Instructor: Yaya Alvarez M.D.,PhD Monocytes/100 WBC (Bld) 5.4 % Normal [facility] Comment on above: Performed By: #### 7 600, 622, 6399, 19376, 71619 #### [facility] of [place] [address] Lab Instructor: Salvador Swanson MD #### 945 #### [facility]/[address] [place] Lab Instructor: Yaya Alvarez M.D.,PhD Neutrophils (Bld) [#/Vol] 5.758 10*3/uL Normal 2977-4782 [facility] Comment on above: Performed By: #### 7 600, 622, 6399, 82981, 03899 #### [facility] of [place] [address] Lab Instructor: Salvador Swanson MD #### 945 #### [facility]/[address] [place] Lab Instructor: Yaya Alvarez M.D.,PhD Neutrophils/100 WBC (Bld) 64.7 % Normal [facility] Comment on above: Performed By: #### 7 600, 622, 6399, 68920, 53495 #### [facility] of [address], [address] [place] [address] Lab Instructor: Salvador Swanson MD #### 945 #### [facility]/[place] [address]7925 [facility] [place] Lab Instructor: Yaya Alvarez M.D.,PhD Platelet mean volume (Bld) [Entitic vol] 10.2 fL Normal 7.5-12.5 [facility] Comment on above: Performed By: #### 7 600, 622, 6399, 80991, 42781 #### [facility] of [place] [address] Lab Instructor: Salvador Swanson MD #### 945 #### [facility]/[address] [place] Lab Instructor: Yaya Alvarez M.D.,PhD Platelets (Bld) [#/Vol] 392 10*3/uL Normal 140-400 [facility] Comment on above: Performed By: #### 7 600, 622, 6399, 21923, 88804 #### [facility] of [address], [address] [place] [address] Lab Instructor: Salvador Swanson MD #### 945 #### [facility]/[place] [address]25 [facility] [place] Lab Instructor: Yaya Alvarez M.D.,PhD RBC (Bld) [#/Vol] 4.38 10*6/uL Normal 3.80-5.10 [facility] Comment on above: Performed By: #### 7 600, 622, 6399, 01304, 37112 #### [facility] of [place] [address], [address] [place], [place] [id number] Lab Instructor: Salvador Swanson MD #### 945 #### [facility]/[place] [address]25 [facility] [place] Lab Instructor: Yaya Alvarez M.D.,PhD WBC (Bld) [#/Vol] 8.9 10*3/uL Normal 3.8-10.8 [facility] Comment on above: Performed By: #### 7 600, 622, 6399, 70009, 56644 #### [facility] of [place] [address] , [address] [place] [address] Lab Instructor: Salvador Swanson MD #### 945 #### [facility]/[place] [address] [facility] [place] Lab Instructor: Yaya Alvarez M.D.,PhD COMPREHENSIVE METABOLIC PANE L W/ANION GAPon 03-09-2025 Albumin [Mass/Vol] 4.0 g/dL Normal 3.6-5.1 [facility] Comment on above: Performed By: #### 7 600, 622, 6399, 75056, 13075 #### [facility] of [place] [address] , [address] [place], [place] [id number] Lab Instructor: Salvador Swanson MD #### 945 #### [facility]/[place] [address]25 [facility] [place] Lab Instructor: Yaya Alvarez M.D.,PhD ALP [Catalytic activity/Vol] 98 U/L Normal 31-125 [facility] Comment on above: Performed By: #### 7 600, 622, 6399, 54931, 58767 #### [facility] of [place] [address], [address] [place], [place] [address] Lab Instructor: Salvador Swanson MD #### 945 #### [facility]/[place] [address] [facility] [place] Lab Instructor: Yaya Alvarez M.D.,PhD ALT [Catalytic activity/Vol] 16 U/L Normal 6-29 [facility] Comment on above: Performed By: #### 7 600, 622, 6399, 61448, 85079 #### [facility] of [address], [address] [place], [place] [id number] Lab Instructor: Salvador Swanson MD #### 945 #### [facility]/[place] [address] [facility] [place] Lab Instructor: Yaya Alvarez M.D.,PhD AST [Catalytic activity/Vol] 13 U/L Normal 10-30 [facility] Comment on above: Performed By: #### 7 600, 622, 6399, 80373, 21128 #### [facility] of [address], [address] [place], [place] [address] Lab Instructor: Salvador Swanson MD #### 945 #### [facility]/[address] [place], [place] Lab Instructor: Yaya Alvarez M.D.,PhD Bilirubin [Mass/Vol] 0.8 mg/dL Normal 0.2-1.2 [facility] Comment on above: Performed By: #### 7 600, 622, 6399, 70842, 93561 #### [facility] of [address], [address] [place], [place] [address] Lab Instructor: Salvador Swanson MD #### 945 #### [facility] [address] [place] Lab Instructor: Yaya Alvarez M.D.,PhD Calcium [Mass/Vol] 9.1 mg/dL Normal 8.6-10.2 [facility] Comment on above: Performed By: #### 7 600, 622, 6399, 08663, 91223 #### [facility] of [address], [address] [place], [place] [address] Lab Instructor: Salvador Swanson MD #### 945 #### [facility] [address] [facility] [place], [place] Lab Instructor: Yaya Alvarez M.D.,PhD Chloride [Moles/Vol] 103 mmol/L Normal 98-110 [facility] Comment on above: Performed By: #### 7 600, 622, 6399, 90898, 24561 #### [facility] of [place] [address], [address] [place], [place] [id number] Lab Instructor: Salvador Swanson MD #### 945 #### [facility]/[place] [address]25 [facility] [place] Lab Instructor: Yaya Alvarez M.D.,PhD CO2 [Moles/Vol] 24 mmol/L Normal 20-32 [facility] Comment on above: Performed By: #### 7 600, 622, 6399, 43395, 28691 #### [facility] of [place] [address] , [address] [place], [place] [address] Lab Instructor: Salvador Swanson MD #### 945 #### [facility]/[place] [address]25 [facility] [place] Lab Instructor: Yaya Alvarez M.D.,PhD Creatinine [Mass/Vol] 0.68 mg/dL Normal 0.50-0.[address] [facility] Comment on above: Performed By: #### 7 600, 622, 6399, 61910, 06462 #### [facility] of [place] [address] , [address] [place], [place] [address] Lab Instructor: Salvador Swanson MD #### 945 #### [facility] [place] Lab Instructor: Yaya Alvarez M.D.,PhD ELECTROLYTE BALANCE 11 mmol/L (calc) Normal 7-17 [facility] Comment on above: Performed By: #### 7 600, 622, 6399, 87013, 99132 #### [facility] [address] Lab Instructor: Salvador Swanson MD #### 945 #### [facility] [address] [facility] [place] Lab Instructor: Yaya Alvarez M.D.,PhD GFR/1.73 sq M.predicted among non-blacks MDRD (S/P/Bld) [Vol rate/Area] 116 mL/min/{1.73_m2} Normal > OR = 60 [facility] Comment on above: Performed By: #### 7 600, 622, 6399, 54853, 76938 #### [facility] [address], [address] [place], [place] [address] Lab Instructor: Salvador Swanson MD #### 945 #### [facility] [place] Lab Instructor: Yaya Alvarez M.D.,PhD Glucose [Mass/Vol] 112 mg/dL High 65-99 [facility] Comment on above: Result Comment: Fasting reference interval For someone without known diabetes, a glucose value between 100 and 125 mg/dL is consistent with prediabetes and should be confirmed with a follow-up test. Performed By: #### 7 600, 622, 6399, 88412, 25827 #### [facility] [address], [address] [place], [place] [address] Lab Instructor: Salvador Swanson MD #### 945 #### [facility] [address] [facility] [address] [place] Lab Instructor: Yaya Alvarez M.D.,PhD Potassium [Moles/Vol] 4.0 mmol/L Normal 3.5-5.[address] [facility] Comment on above: Performed By: #### 7 600, 622, 6399, 83133, 79291 #### [facility] of [place] [address] , [address] [place], [place] [address] Lab Instructor: Salvador Swanson MD #### 945 #### [facility] [address] [place] Lab Instructor: Yaya Alvarez M.D.,PhD Protein [Mass/Vol] 7.4 g/dL Normal 6.1-8.1 [facility] Comment on above: Performed By: #### 7 600, 622, 6399, 75427, 91181 #### [facility] of [address], [address] [place], [place] [address] Lab Instructor: Salvador Swanson MD #### 945 #### [facility] [address] [place] Lab Instructor: Yaya Alvarez M.D.,PhD Sodium [Moles/Vol] 138 mmol/L Normal 135-146 [facility] Comment on above: Performed By: #### 7 600, 622, 6399, 69853, 35268 #### [facility] of [place] [address], [address] [place], [place] [address] Lab Instructor: Salvador Swanson MD #### 945 #### [facility] [address] [place] Lab Instructor: Yaya Alvarez M.D.,PhD Urea nitrogen [Mass/Vol] 10 mg/dL Normal 7-25 [facility] Comment on above: Performed By: #### 7 600, 622, 6399, 67124, 42707 #### [facility] of [place] [address], [address] [place], [place] [address] Lab Instructor: Salvador Swanson MD #### 945 #### [facility] [address] [place] Lab Instructor: Yaya Alvarez M.D.,PhD H[facility]/L) 7.7 mmol/L Normal [facility] Comment on above: Performed By: #### 1 759, 66322 #### [facility] [address], [address] [place] [address] Lab Instructor: Salvador Swanson MD HbA1c (Bld) [Mass fraction] [...] for children. Performed By: #### 1 759, 90378 #### [facility] [address], [address] [place] [address] Lab Instructor: Salvador Swanson MD Magnesium [Mass/Vol] 140 mg/dL Normal [facility] Comment on above: Performed By: #### 1 759, 96460 #### [facility] [place] [address] Lab Instructor: Salvador Swanson MD LIPID PANEL, [facility] Cholesterol [Mass/Vol] 218 mg/dL High <200 [facility] Comment on above: Order Comment: FASTI NG:YES FASTING: YES Performed By: #### 7 600, 622, 6399, 95325, 17132 #### [facility] [address], [address] [place] [address] Lab Instructor: Salvador Swanson MD #### 945 #### [facility] [address] [facility] [place], [place] Lab Instructor: Yaya Alvarez M.D.,PhD Cholesterol in HDL [Mass/Vol] 58 mg/dL Normal > OR = 50 [facility] Comment on above: Order Comment: FASTI NG:YES FASTING: YES Performed By: #### 7 600, 622, 6399, 78181, 74613 #### [facility] [address], [address] [place], [place] [address] Lab Instructor: Salvador Swanson MD #### 945 #### [facility]/[place] [address] [facility] [place] Lab Instructor: Yaya Alvarez M.D.,PhD Cholesterol in LDL [Mass/Vol] [...] LDL-C. Darren SULLIVAN et al. ILIANA. 2013;310(19): 3476-8723 (http://education.[employer].Coderwall/faq/ESF575) Performed By: #### 7 600, 622, 6399, 37991, 42055 #### [facility] [address], [address] [place], [place] [address] Lab Instructor: Salvador Swanson MD #### 945 #### [facility] [address] [facility] [place] Lab Instructor: Yaya Alvarez M.D.,PhD Cholesterol.total/Cho lesterol in HDL [Mass ratio] 3.8 {ratio} Normal <5.0 [facility] Comment on above: Order Comment: FASTI NG:YES FASTING: YES Performed By: #### 7 600, 622, 6399, 12485, 74717 #### [facility] [address], [address] [place], [place] [address] Lab Instructor: Salvador Swanson MD #### 945 #### [facility] [place] Lab Instructor: Yaya Alvarez M.D.,PhD NON HDL CHOLESTEROL 160 mg/dL (calc) High <130 [facility] Comment on above: Order Comment: FASTI NG:YES FASTING: YES Result Comment: For patients with diabetes plus 1 major ASCVD risk factor, treating to a non-HDL-C goal of <100 mg/dL (LDL-C of <70 mg/dL) is considered a therapeutic option. Performed By: #### 7 600, 622, 6399, 29302, 60722 #### [facility] [address], [address] [place] [address] Lab Instructor: Salvador Swanson MD #### 945 #### [facility] [place] Lab Instructor: Yaya Alvarez M.D.,PhD Triglyceride [Mass/Vol] 99 mg/dL Normal <150 [facility] Comment on above: Order Comment: FASTI NG:YES FASTING: YES Performed By: #### 7 600, 622, 6399, 69635, 87708 #### [facility] [address], [address] [place] [address] Lab Instructor: Salvador Swanson MD #### 945 #### [facility]/[place] [address] [facility] [place] Lab Instructor: Yaya Alvarez M.D.,PhD MAGNESIUMon 03-09-2025 Magnesium [Mass/Vol] 2.1 mg/dL Normal 1.5-2.5 [facility] Comment on above: Performed By: #### 7 600, 622, 6399, 36847, 87002 #### [facility] [address], [address] [place] [address] Lab Instructor: Salvador Swanson MD #### 945 #### [facility] [address] [facility] [place] Lab Instructor: Yaya Alvarez M.D.,PhD TSH W/REFLEX TO FT4on 2024 TSH W/REFLEX TO FT4 1.47 mIU/L Normal [facility] Comment on above: Result Comment: Refe rence Range > or = 20 Years 0.40-4.50 Ranges First trimester 0.26-2.66 Second trimester 0.55-2.73 Third trimester 0.43-2.91 Performed By: #### 7 600, 622, 6399, 81750, 24015 #### [facility] [address], [address] [place] [address] Lab Instructor: Salvador Swanson MD #### 945 #### [facility] [address] [facility] [address] [place] Lab Instructor: Yaya Alvarez M.D.,PhD ZINCon 03-09-2025 ZINC 58 mcg/dL Low 60-130 [facility] Comment on above: Result Comment: This test was developed and its analytical performance characteristics have been determined by [facility] [place], [place]. It has not been cleared or approved by the U.S. Food and Drug Administration. This assay has been validated pursuant to the CLIA regulations and is used for clinical purposes. Performed By: #### 7 600, 622, 6399, 59528, 00544 #### [facility] [address], [address] [place] [address] Lab Instructor: Salvador Swanson MD #### 945 #### [facility] [address] [facility] [place], [place] Lab Instructor: Yaya Alvarez M.D.,PhD MR/JENNIFER.BPon 03-05-2025 MR/JENNIFER.BP Normal [facility] Glucose Test strip manual (B ld) [Mass/Vol]on 03-01-2025 Glucose [Mass/Vol] 105 mg/dL High 74 - 99 mg/dL [facility] Interpretation and review of laboratory results Abnormal [facility] Glucose [Mass/Vol] 105 mg/dL High 74-99 [facility] Comment on above: Performed By: #### 3 5255-9 #### QUIN Simon ([id number]) [facility] ([facility]) [address] [place] [address] MR/BMS.BPon 02-24-2025 MR/BMS.BP Normal [facility] MR/BMS.BPon 02-19-2025 MR/BMS.BP Normal [facility] CBC W Auto Differential pane l (Bld)on 02-16-2025 Basophils (Bld) [#/Vol] 0.08 10*3/uL [facility] Basophils/100 WBC (Bld) 0.7 % 0.0 - 2.0 % [facility] Eosinophils (Bld) [#/Vol] 0.01 10*3/uL [facility] Eosinophils/100 WBC (Bld) 0.1 % 0.0 - 6.0 % [facility] Erythrocyte distribution width (RBC) [Ratio] 13.4 % 11.5 - 14.5 % [facility] Hematocrit (Bld) [Volume fraction] 35.2 % Low 36.0 - 46.0 % [facility] Hemoglobin (Bld) [Mass/Vol] 11 g/dL Low 12.0 - 16.0 g/dL [facility] Immature granulocytes (Bld) [#/Vol] 0.3 10*3/uL [facility] Immature granulocytes/100 WBC (Bld) 2.8 % High 0.0 - 0.9 % [facility] Comment on above: Immature Granulocyte Count (IG) includes promyelocytes, myelocytes and metamyelocytes but does not include bands. Percent differential counts (%) should be interpreted in the context of the absolute cell counts (cells/UL). Interpretation and review of laboratory results Abnormal [facility] Lymphocytes (Bld) [#/Vol] 2.35 10*3/uL [facility] Lymphocytes/100 WBC (Bld) 22 % 13.0 - 44.0 % [facility] MCH (RBC) [Entitic mass] 27.2 pg 26.0 - 34.0 pg [facility] MCHC (RBC) [Mass/Vol] 31.3 g/dL Low 32.0 - 36.0 g/dL [facility] MCV (RBC) [Entitic vol] 87 fL 80 - 100 fL [facility] Monocytes (Bld) [#/Vol] 0.59 10*3/uL [facility] Monocytes/100 WBC (Bld) 5.5 % 2.0 - 10.0 % [facility] Neutrophils (Bld) [#/Vol] 7.34 10*3/uL [facility] Comment on above: Percent differential counts (%) should be interpreted in the context of the absolute cell counts (cells/uL). Neutrophils/100 WBC (Bld) 68.9 % 40.0 - 80.0 % [facility] Nucleated RBC/100 WBC (Bld) [Ratio] 0 % [facility] Platelets (Bld) [#/Vol] 314 10*3/uL [facility] RBC (Bld) [#/Vol] 4.05 10*6/uL [facility] WBC (Bld) [#/Vol] 10.7 10*3/uL [facility] Basophils (Bld) [#/Vol] 0.08 x10*3/uL Normal 0.00-0.10 [facility] Comment on above: Performed By: #### 3 5255-9 #### QUIN Simon ([id number]) [facility] ([facility]) [id number] [place] [address] Basophils/100 WBC (Bld) 0.7 % Normal 0.0-2.0 [facility] Comment on above: Performed By: #### 3 5255-9 ###Daria Simon ([id number]) [facility] ([facility]) [address] [place] [address] Eosinophils (Bld) [#/Vol] 0.01 x10*3/uL Normal 0.00-0.70 [facility] Comment on above: Performed By: #### 3 5255-9 #### QUIN Simon ([id number]) [facility] ([facility]) [id number] [place] [address] Eosinophils/100 WBC (Bld) 0.1 % Normal 0.0-6.0 [facility] Comment on above: Performed By: #### 3 5255-9 #### QUIN Simon ([id number]) [facility] ([facility]) [address] [place] [address] Erythrocyte distribution width (RBC) [Ratio] 13.4 % Normal 11.5-14.5 [facility] Comment on above: Performed By: #### 3 5255-9 #### QUIN Simon ([id number]) [facility] ([facility]) [address] [place] [address] Hematocrit (Bld) [Volume fraction] 35.2 % Low 36.0-46.0 [facility] Comment on above: Performed By: #### 3 5255-9 #### QUIN Simon ([id number]) [facility] ([facility]) [address] [place] [address] Hemoglobin (Bld) [Mass/Vol] 11.0 g/dL Low 12.0-16.0 [facility] Comment on above: Performed By: #### 3 5255-9 #### QUIN Simon ([id number]) [facility] ([facility]) [address] [place] [address] Immature granulocytes (Bld) [#/Vol] 0.30 x10*3/uL Normal 0.00-0.70 [facility] Comment on above: Performed By: #### 3 5255-9 #### QUIN Simon ([id number]) [facility] ([facility]) [address] [place] [address] Immature granulocytes/100 WBC (Bld) 2.8 % High 0.0-0.9 [facility] Comment on above: Result Comment: Gayla ture Granulocyte Count (IG) includes promyelocytes, myelocytes and metamyelocytes but does not include bands. Percent differential counts (%) should be interpreted in the context of the absolute cell counts (cells/UL). Performed By: #### 3 5255-9 #### QUIN Simon ([id number]) [facility] ([facility]) [id number] [place] [address] Lymphocytes (Bld) [#/Vol] 2.35 x10*3/uL Normal 1.20-4.80 [facility] Comment on above: Performed By: #### 3 5255-9 #### QUIN Simon ([id number]) [facility] ([facility]) [address] [place] [address] Lymphocytes/100 WBC (Bld) 22.0 % Normal 13.0-44.0 [facility] Comment on above: Performed By: #### 3 5255-9 #### QUIN Simon ([id number]) [facility] ([facility]) [address] [place] [address]289 MCH (RBC) [Entitic mass] 27.2 pg Normal 26.0-34.0 [facility] Comment on above: Performed By: #### 3 5255-9 #### QUIN Simon ([id number]) [facility] ([facility]) [id number] [place] [address]79[address] MCHC (RBC) [Mass/Vol] 31.3 g/dL Low 32.0-36.0 [facility] Comment on above: Performed By: #### 3 5255-9 #### QUIN Simon ([id number]) [facility] ([facility]) [id number] [place] [address] MCV (RBC) [Entitic vol] 87 fL Normal 80-100 [facility] Comment on above: Performed By: #### 3 5255-9 #### QUIN Simon ([id number]) [facility] ([facility]) [id number] [place] [address] 10476 Monocytes (Bld) [#/Vol] 0.59 x10*3/uL Normal 0.10-1.00 [facility] Comment on above: Performed By: #### 3 5255-9 #### QUIN Simon ([id number]) [facility] ([facility]) [address] [place] [address] Monocytes/100 WBC (Bld) 5.5 % Normal 2.0-10.0 [facility] Comment on above: Performed By: #### 3 5255-9 #### QUIN Simon ([id number]) [facility] ([facility]) [address] [place] [address]197 Neutrophils (Bld) [#/Vol] 7.34 x10*3/uL Normal 1.20-7.70 [facility] Comment on above: Result Comment: Perc ent differential counts (%) should be interpreted in the context of the absolute cell counts (cells/uL). Performed By: #### 3 5255-9 #### QUIN Simon ([id number]) [facility] ([facility]) [address] [place] [address] Neutrophils/100 WBC (Bld) 68.9 % Normal 40.0-80.0 [facility] Comment on above: Performed By: #### 3 5255-9 #### QUIN Simon ([id number]) [facility] ([facility]) [address] [place] [address] 64187 Nucleated RBC/100 WBC (Bld) [Ratio] 0.0 /100 WBCs Normal 0.0-0.0 [facility] Comment on above: Performed By: #### 3 5255-9 #### QUIN Simon ([id number]) [facility] ([facility]) [address] [place] [address] Platelets (Bld) [#/Vol] 314 x10*3/uL Normal 150-450 [facility] Comment on above: Performed By: #### 3 5255-9 #### QUIN Simon ([id number]) [facility] ([facility]) [address] [place] [address] RBC (Bld) [#/Vol] 4.05 x10*6/uL Normal 4.00-5.20 [facility] Comment on above: Performed By: #### 3 5255-9 #### QUIN Simon ([id number]) [facility] ([facility]) [address] [place] [address] WBC (Bld) [#/Vol] 10.7 x10*3/uL Normal 4.4-11.3 [facility] Comment on above: Performed By: #### 3 5255-9 #### QUIN Simon ([id number]) [facility] ([facility]) [address] [place] [address] US AbdomenOrdered By: Eladio Matthews on 02-16-2025 [facility] Work Phone: Radiology Study observation (narrative) [facility] Work Phone: Glucose Test strip manual (B ld) [Mass/Vol]on 02-13-2025 Glucose [Mass/Vol] 125 mg/dL High 74 - 99 mg/dL [facility] Interpretation and review of laboratory results Abnormal [facility] Rubella virus IgG IA Qnon Rubella virus IgG IA Ql Positive Negative [facility] Work Phone: Rubella virus IgG Qn (S) 1.5 [IU]/mL <=0.7 IA IA [facility] Work Phone: NEGATIVE: No IgG antibodies specific [...] exposed to Rubella through infection or vaccination. [facility] Work Phone: [facility] Work Phone: Rubella virus IgG IA Ql Positive Normal Negative [facility] Comment on above: Order Comment: The b eta-hydroxybutyrate test performance characteristics have been validated by [facility]. This test has not been approved by the FDA; however such approval is not necessary. Performed By: #### 3 5255-9 #### QUIN Simon ([id number]) [facility] ([facility]) [address] [place] [address] 31648 Rubella virus IgG Qn (S) 1.5 IA Normal <=0.7 IA [facility] Comment on above: Order Comment: The b eta-hydroxybutyrate test performance characteristics have been validated by [facility]. This test has not been approved by the FDA; however such approval is not necessary. Performed By: #### 3 5255-9 #### QUIN Simon ([id number]) [facility] ([facility]) [address] [place] [address] 51676 Glucose Test strip manual (B ld) [Mass/Vol]on 02-12-2025 Glucose [Mass/Vol] 125 mg/dL High 74-99 [facility] Comment on above: Performed By: #### 3 5255-9 #### QUIN Simon ([id number]) [facility] ([facility]) [address] [place] [address] 28643 Glucose [Mass/Vol] 101 mg/dL High 74 - 99 mg/dL [facility] Interpretation and review of laboratory results Abnormal [facility] Glucose [Mass/Vol] 101 mg/dL High 74-99 [facility] Comment on above: Performed By: #### 3 5255-9 #### QUIN Simon ([id number]) [facility] ([facility]) [address] [place] [address] 96564 HBV surface Ag IA Qlon 02-12 Interpretation and review of laboratory results Normal [facility] HIV 1+2 Ab+HIV1 p24 Ag IA Ql on 02-12-2025 Interpretation and review of laboratory results Normal [facility] HIV Ag/Ab screen is performed using the Siemens AtellPikhub HIV Ag/Ab Combo assay which detects the presence of HIV p24 antigen as well as antibodies to HIV-1 (Group M and O) and HIV-2. No laboratory evidence of HIV infection. If acute HIV infection is suspected, consider testing for HIV RNA by PCR (viral load). [facility] HIV 1/2 Antigen/Antibody Scr een with Reflex to Confirmationon 02-12-2025 HIV 1+2 Ab+HIV1 p24 Ag IA Ql Non-Reactive Nonreactive [facility] Hepatitis B surface antigeno n 02-12-2025 HBV surface Ag IA Ql Non-Reactive Nonreactive [facility] Comment on above: Biotin interference may cause falsely decreased results. Patients taking a Biotin dose of up to 5 mg/day should refrain from taking Biotin for 24 hours before sample collection. Providers may contact their local laboratory for further information. Rubella virus IgG IA QnOrder ed By: Naya Khan on 02-12-2025 Rubella virus IgG IA Ql Positive Negative [facility] Rubella virus IgG Qn (S) 1.5 [IU]/mL <=0.7 IA IA [facility] NEGATIVE: No IgG antibodies specific to Rubella [...] exposed to Rubella through infection or vaccination. [facility] Streptococcus.beta-hemolytic Org specific cx Ql (Genital specimen)Ordered By: Micheline Sutton on 02-12-2025 Interpretation and review of laboratory results Abnormal [facility] S. agalactiae Org specific cx Ql (Genital specimen) Isolated: Streptococcus agalactiae (Group B Streptococcus) Abnormal [facility] Streptococcus agalac tiae (Group B Streptococcus) is universally susceptible to beta-lactam antibiotics and vancomycin. Routine susceptibility testing not performed. For penicillin allergic patients, please contact the laboratory within 5 days of collection at to request susceptibility testing. [facility] Blood type and Indirect anti body screen panel (Bld)on 02-11-2025 ABO group Nom (Bld) O Unive [facility] Blood group antibody screen Ql Negative [facility] D Ag Ql (Bld) Positive [facility] ABO group Nom (Bld) O Normal [facility] Comment on above: Performed By: #### 1 4804-9 #### QUIN Simon ([id number]) [facility] ([facility]) [address] [place] [address] 27588 Blood group antibody screen Ql Negative Normal [facility] Comment on above: Performed By: #### 1 4804-9 #### QUIN Simon ([id number]) [facility] ([facility]) [address] [place] [address] 12429 D Ag Ql (Bld) Positive Normal [facility] Comment on above: Performed By: #### 1 4804-9 #### QUIN Simon ([id number]) [facility] ([facility]) [address] [place] [address] 91335 Glucose Test strip manual (B ld) [Mass/Vol]on 02-11-2025 Glucose [Mass/Vol] 110 mg/dL High 74 - 99 mg/dL [facility] Interpretation and review of laboratory results Abnormal [facility] Glucose [Mass/Vol] 110 mg/dL High 74-99 [facility] Comment on above: Performed By: #### 3 5255-9 #### QUIN Simon ([id number]) [facility] ([facility]) [address] [place] [address] 25913 Glucose [Mass/Vol] 96 mg/dL 74 - 99 mg/dL [facility] Interpretation and review of laboratory results Normal [facility] Glucose [Mass/Vol] 96 mg/dL Normal 74-99 [facility] Comment on above: Performed By: #### 3 5255-9 #### QUIN Simon ([id number]) [facility] ([facility]) [address] [place] [address] 25285 Glucose [Mass/Vol] 66 mg/dL Low 74 - 99 mg/dL [facility] Interpretation and review of laboratory results Abnormal [facility] Glucose [Mass/Vol] 66 mg/dL Low 74-99 [facility] Comment on above: Performed By: #### 1 4804-9 #### QUIN Simon ([id number]) [facility] ([facility]) [address] [place] [address] 80409 Glucose [Mass/Vol] 72 mg/dL Low 74 - 99 mg/dL [facility] Interpretation and review of laboratory results Abnormal [facility] Glucose [Mass/Vol] 72 mg/dL Low 74-99 [facility] Comment on above: Performed By: #### 1 4804-9 #### QUIN Simon ([id number]) [facility] ([facility]) [address] [place] [address] 83527 Glucose [Mass/Vol] 113 mg/dL High 74 - 99 mg/dL [facility] Interpretation and review of laboratory results Abnormal [facility] Glucose [Mass/Vol] 113 mg/dL High 74-99 [facility] Comment on above: Performed By: #### 1 4804-9 #### QUIN Simon ([id number]) [facility] ([facility]) [address] [place] [address] 03630 Glucose [Mass/Vol] 126 mg/dL High 74 - 99 mg/dL [facility] Interpretation and review of laboratory results Abnormal [facility] Glucose [Mass/Vol] 126 mg/dL High 74-99 [facility] Comment on above: Performed By: #### 1 4804-9 #### QUIN Simon ([id number]) [facility] ([facility]) [address] [place] [address] 49632 Glucose [Mass/Vol] 142 mg/dL High 74 - 99 mg/dL [facility] Interpretation and review of laboratory results Abnormal [facility] Glucose [Mass/Vol] 142 mg/dL High 74-99 [facility] Comment on above: Performed By: #### 1 4804-9 #### QUIN Simon ([id number]) [facility] ([facility]) [address] [place] [address] 21658 Glucose [Mass/Vol] 154 mg/dL High 74 - 99 mg/dL [facility] Interpretation and review of laboratory results Abnormal [facility] Glucose [Mass/Vol] 154 mg/dL High 74-99 [facility] Comment on above: Performed By: #### 1 4804-9 #### QUIN Simon ([id number]) [facility] ([facility]) [address] [place] [address] 56374 Prepare RBC: 1 Unitson 02-11 Blood Expiration Date 03/07/2025 11:59:00 PM EDT [facility] Dispense Status RE [facility] PRODUCT BLOOD TYPE 5100 [facility] PRODUCT CODE [id number] [facility] Unit ABO O [facility] Unit Number [id number] [facility] RH Positive [facility] UNIT VOLUME 279 [facility] XM INTEP COMP [facility] Glucose Test strip manual (B ld) [Mass/Vol]on 02-10-2025 Glucose [Mass/Vol] 138 mg/dL High 74 - 99 mg/dL [facility] Interpretation and review of laboratory results Abnormal [facility] Glucose [Mass/Vol] 138 mg/dL High 74-99 [facility] Comment on above: Performed By: #### 1 4804-9 #### QUIN Simon ([id number]) [facility] ([facility]) [address] [place] [address] 13175 Glucose [Mass/Vol] 101 mg/dL High 74 - 99 mg/dL [facility] Interpretation and review of laboratory results Abnormal [facility] Glucose [Mass/Vol] 101 mg/dL High 74-99 [facility] Comment on above: Performed By: #### 1 4804-9 #### QUIN Simon ([id number]) [facility] ([facility]) [address] [place] [address] 32265 Glucose [Mass/Vol] 124 mg/dL High 74 - 99 mg/dL [facility] Interpretation and review of laboratory results Abnormal [facility] Glucose [Mass/Vol] 124 mg/dL High 74-99 [facility] Comment on above: Performed By: #### 2 4323-8 #### QUIN Simon ([id number]) [facility] ([facility]) [address] [place] [address] 18916 Glucose [Mass/Vol] 157 mg/dL High 74 - 99 mg/dL [facility] Interpretation and review of laboratory results Abnormal [facility] Glucose [Mass/Vol] 157 mg/dL High 74-99 [facility] Comment on above: Performed By: #### 2 4323-8 #### QUIN Simon ([id number]) [facility] ([facility]) [address] [place] [address] 08147 No Panel Informationon 02-10 There is no [...] no significant focal stenosis or aneurysm. The ytio-af-tltrat intracranial MRV is within normal limits without evidence of venous sinus thrombosis. MACRO: None. Signed by: Ranjan Trivedi 02/10/2025 5:28 AM Dictation workstation: [id number] Interpreted By: Ranjan Root, STUDY: MR BRAIN WO IV CONTRAST; MR ANGIO HEAD WO IV CONTRAST; MR VENOGRAPHY INTRACRANIAL WO IV CONTRAST; 02/10/2025 5:02 am INDICATION: Signs/Symptoms:intractabl e headache, sPEC; Signs/Symptoms:intractabl e NIELSEN, sPEC. COMPARISON: None. ACCESSION NUMBER(S): [id number]; [id number]; [id number] ORDERING CLINICIAN: CLAIR CASTRO TECHNIQUE: Axial diffusion, axial T2, axial FLAIR, axial gradient echo T2, coronal T1, and sagittal T1 weighted MRI images of the brain were obtained without intravenous contrast administration. In addition, uvwg-yc-zlpqjv MRA and MRV images of the intracranial [...] no significant focal stenosis or aneurysm. The rdxn-zx-jjewps intracranial MRV is within normal limits without evidence of venous sinus thrombosis. [facility] Ranjan Trivedi M D - 02/10/2025 Interpreted By: Ranjan Trivedi, STUDY: MR BRAIN WO IV CONTRAST; MR ANGIO HEAD WO IV CONTRAST; MR VENOGRAPHY INTRACRANIAL WO IV CONTRAST; 02/10/2025 5:02 am INDICATION: Signs/Symptoms:intractabl e headache, sPEC; Signs/Symptoms:intractabl e NIELSEN, sPEC. COMPARISON: None. ACCESSION NUMBER(S): [id number]; [id number]; [id number] ORDERING CLINICIAN: CLAIR CASTRO TECHNIQUE: Axial diffusion, axial T2, axial FLAIR, axial gradient echo T2, coronal T1, and sagittal T1 weighted MRI images of the brain were obtained without intravenous contrast administration. In addition, ihcm-kt-yjuwtx MRA and MRV images of the intracranial [...] no significant focal stenosis or aneurysm. The meig-nv-wdzgho intracranial MRV is within normal limits without [...] no significant focal stenosis or aneurysm. The khev-qf-jgwqnp intracranial MRV is within normal limits without evidence of venous sinus thrombosis. MACRO: None. Signed by: Ranjan Trivedi 02/10/2025 5:28 AM Dictation workstation: [id number] [facility] Work Phone: Radiology Study observation (narrative) [facility] Work Phone: No Panel InformationOrdered By: Ranjan Trivedi on 02-10-2025 [facility] Work Phone: CBC panel Auto (Bld)on 02-09 Erythrocyte distribution width (RBC) [Ratio] 13.4 % 11.5 - 14.5 % [facility] Hematocrit (Bld) [Volume fraction] 34.8 % Low 36.0 - 46.0 % [facility] Hemoglobin (Bld) [Mass/Vol] 10.6 g/dL Low 12.0 - 16.0 g/dL [facility] Interpretation and review of laboratory results Abnormal [facility] MCH (RBC) [Entitic mass] 28 pg 26.0 - 34.0 pg [facility] MCHC (RBC) [Mass/Vol] 30.5 g/dL Low 32.0 - 36.0 g/dL [facility] MCV (RBC) [Entitic vol] 92 fL 80 - 100 fL [facility] Nucleated RBC/100 WBC (Bld) [Ratio] 0 % [facility] Platelets (Bld) [#/Vol] 265 10*3/uL [facility] RBC (Bld) [#/Vol] 3.78 10*6/uL Low [facility] WBC (Bld) [#/Vol] 18.5 10*3/uL [facility] Erythrocyte distribution width (RBC) [Ratio] 13.4 % Normal 11.5-14.5 [facility] Comment on above: Performed By: #### 2 4323-8 #### QUIN Simon ([id number]) [facility] ([facility]) [address] [place] [address] 95878 Hematocrit (Bld) [Volume fraction] 34.8 % Low 36.0-46.0 [facility] Comment on above: Performed By: #### 2 4323-8 #### QUIN Simon ([id number]) [facility] ([facility]) [address] [place] [address] 24120 Hemoglobin (Bld) [Mass/Vol] 10.6 g/dL Low 12.0-16.0 [facility] Comment on above: Performed By: #### 2 4323-8 #### QUIN Simon ([id number]) [facility] ([facility]) [address] [place] [address] 91875 MCH (RBC) [Entitic mass] 28.0 pg Normal 26.0-34.0 [facility] Comment on above: Performed By: #### 2 4323-8 #### QUIN Simon ([id number]) [facility] ([facility]) [address] [place] [address] 05282 MCHC (RBC) [Mass/Vol] 30.5 g/dL Low 32.0-36.0 [facility] Comment on above: Performed By: #### 2 4323-8 #### QUIN Simon ([id number]) [facility] ([facility]) [address] [place] [address] 98191 MCV (RBC) [Entitic vol] 92 fL Normal 80-100 [facility] Comment on above: Performed By: #### 2 4323-8 #### QUIN Simon ([id number]) [facility] ([facility]) [address] [place] [address] Nucleated RBC/100 WBC (Bld) [Ratio] 0.0 /100 WBCs Normal 0.0-0.0 [facility] Comment on above: Performed By: #### 2 4323-8 #### QUIN Simon ([id number]) [facility] ([facility]) [address] [place] [address] Platelets (Bld) [#/Vol] 265 x10*3/uL Normal 150-450 [facility] Comment on above: Performed By: #### 2 4323-8 #### QUIN Simon ([id number]) [facility] ([facility]) [address] [place] [address] 21063 RBC (Bld) [#/Vol] 3.78 x10*6/uL Low 4.00-5.20 [facility] Comment on above: Performed By: #### 2 4323-8 #### QUIN Simon ([id number]) [facility] ([facility]) [address] [place] [address] 59393 WBC (Bld) [#/Vol] 18.5 x10*3/uL High 4.4-11.3 [facility] Comment on above: Performed By: #### 2 4323-8 #### QUIN Simon ([id number]) [facility] ([facility]) [address] [place] [address] 45216 Erythrocyte distribution width (RBC) [Ratio] 13.3 % 11.5 - 14.5 % [facility] Hematocrit (Bld) [Volume fraction] 35.4 % Low 36.0 - 46.0 % [facility] Hemoglobin (Bld) [Mass/Vol] 11.2 g/dL Low 12.0 - 16.0 g/dL [facility] Interpretation and review of laboratory results Abnormal [facility] MCH (RBC) [Entitic mass] 28.3 pg 26.0 - 34.0 pg [facility] MCHC (RBC) [Mass/Vol] 31.6 g/dL Low 32.0 - 36.0 g/dL [facility] MCV (RBC) [Entitic vol] 89 fL 80 - 100 fL [facility] Nucleated RBC/100 WBC (Bld) [Ratio] 0 % [facility] Platelets (Bld) [#/Vol] 266 10*3/uL [facility] RBC (Bld) [#/Vol] 3.96 10*6/uL Low [facility] WBC (Bld) [#/Vol] 19.1 10*3/uL High [facility] Erythrocyte distribution width (RBC) [Ratio] 13.3 % Normal 11.5-14.5 [facility] Comment on above: Performed By: #### 2 4323-8 #### QUIN Simon ([id number]) [facility] ([facility]) [address] [place] [address] 77645 Hematocrit (Bld) [Volume fraction] 35.4 % Low 36.0-46.0 [facility] Comment on above: Performed By: #### 2 6203-8 #### QUIN Simon ([id number]) [facility] ([facility]) [address] [place] [address] 54030 Hemoglobin (Bld) [Mass/Vol] 11.2 g/dL Low 12.0-16.0 [facility] Comment on above: Performed By: #### 2 4323-8 #### QUIN Simon ([id number]) [facility] ([facility]) [address] [place] [address] 53938 MCH (RBC) [Entitic mass] 28.3 pg Normal 26.0-34.0 [facility] Comment on above: Performed By: #### 2 4323-8 #### QUIN Simon ([id number]) [facility] ([facility]) [address] [place] [address] 29262 MCHC (RBC) [Mass/Vol] 31.6 g/dL Low 32.0-36.0 [facility] Comment on above: Performed By: #### 2 4323-8 #### QUIN Simon ([id number]) [facility] ([facility]) [address] [place] [address] MCV (RBC) [Entitic vol] 89 fL Normal 80-100 [facility] Comment on above: Performed By: #### 2 4323-8 #### QUIN Simon ([id number]) [facility] ([facility]) [address] [place] [address] 57754 Nucleated RBC/100 WBC (Bld) [Ratio] 0.0 /100 WBCs Normal 0.0-0.0 [facility] Comment on above: Performed By: #### 2 4323-8 #### QUIN Simon ([id number]) [facility] ([facility]) [address] [place] [address] 96173 Platelets (Bld) [#/Vol] 266 x10*3/uL Normal 150-450 [facility] Comment on above: Performed By: #### 2 4323-8 #### QUIN Simon ([id number]) [facility] ([facility]) [address] [place] [address] 99579 RBC (Bld) [#/Vol] 3.96 x10*6/uL Low 4.00-5.20 [facility] Comment on above: Performed By: #### 2 4323-8 #### QUIN Simon ([id number]) [facility] ([facility]) [address] [place] [address] 53298 WBC (Bld) [#/Vol] 19.1 x10*3/uL High 4.4-11.3 [facility] Comment on above: Performed By: #### 2 4323-8 #### QUIN Simon ([id number]) [facility] ([facility]) [address] [place] [address] 86109 Comprehensive metabolic 2000 panelon 02-09-2025 Albumin BCP dye [Mass/Vol] 3.1 g/dL Low 3.4 - 5.0 g/dL [facility] ALP [Catalytic activity/Vol] 80 U/L 33 - 110 U/L [facility] ALT With P-5'-P [Catalytic activity/Vol] 6 U/L Low 7 - 45 U/L [facility] Comment on above: Patients treated wit h Sulfasalazine may generate falsely decreased results for ALT. Anion gap [Moles/Vol] 16 mmol/L 10 - 2 0 mmol/L [facility] AST With P-5'-P [Catalytic activity/Vol] 18 U/L 9 - 39 U/L [facility] Comment on above: MILD HEMOLYSIS DETEC STEFF. The result may be falsely elevated due to hemolysis or other interferents. Clinical correlation is recommended. Repeat testing may be considered. Bilirubin [Mass/Vol] 0.6 mg/dL 0.0 - 1 .2 mg/dL [facility] Calcium [Mass/Vol] 8 mg/dL Low 8.6 - 10. 6 mg/dL [facility] Chloride [Moles/Vol] 106 mmol/L 98 - 10 7 mmol/L [facility] CO2 [Moles/Vol] 17 mmol/L Low 21 - 32 mmol/L [facility] Creatinine [Mass/Vol] 0.54 mg/dL 0.50 - 1.05 mg/dL [facility] eGFR - PINF [facility] Comment on above: Calculations of zoya mated GFR are performed using the 2020 CKD-EPI Study Refit equation without the race variable for the IDMS-Traceable creatinine methods. https://jasn.asnjournals.org/content//ASN.136439 7615 Glucose [Mass/Vol] 113 mg/dL High 74 - 99 mg/dL [facility] Interpretation and review of laboratory results Abnormal [facility] Potassium [Moles/Vol] 4.1 mmol/L 3.5 - 5.3 mmol/L [facility] Comment on above: MILD HEMOLYSIS DETEC STEFF. The result may be falsely elevated due to hemolysis or other interferents. Clinical correlation is recommended. Repeat testing may be considered. Protein [Mass/Vol] 6 g/dL Low 6.4 - 8.2 g/dL [facility] Sodium [Moles/Vol] 135 mmol/L Low 136 - 145 mmol/L [facility] Urea nitrogen [Mass/Vol] 9 mg/dL 6 - 23 mg/dL [facility] Albumin BCP dye [Mass/Vol] 3.1 g/dL Low 3.4-5.0 [facility] Comment on above: Performed By: #### 2 4323-8 #### QUIN Simon ([id number]) [facility] ([facility]) [address] [place] [address] ALP [Catalytic activity/Vol] 80 U/L Normal 33-110 [facility] Comment on above: Performed By: #### 2 4323-8 #### QUIN Simon ([id number]) [facility] ([facility]) [id number] [place] [address] 89265 ALT With P-5'-P [Catalytic activity/Vol] 6 U/L Low 7-45 [facility] Comment on above: Result Comment: Nguyen ents treated with Sulfasalazine may generate falsely decreased results for ALT. Performed By: #### 2 4323-8 #### QUIN Simon ([id number]) [facility] ([facility]) [address] [place] [address] 20768 Anion gap [Moles/Vol] 16 mmol/L Normal 10-20 [facility] Comment on above: Performed By: #### 2 4323-8 #### QUIN Simon ([id number]) [facility] ([facility]) [id number] [place] [address] 38084 AST With P-5'-P [Catalytic activity/Vol] 18 U/L Normal 9-39 [facility] Comment on above: Result Comment: MILD HEMOLYSIS DETECTED. The result may be falsely elevated due to hemolysis or other interferents. Clinical correlation is recommended. Repeat testing may be considered. Performed By: #### 2 4323-8 #### QUIN Simon ([id number]) [facility] ([facility]) [address] [place] [address] 74658 Bilirubin [Mass/Vol] 0.6 mg/dL Normal 0.0-1.2 [facility] Comment on above: Performed By: #### 2 4323-8 #### QUIN Simon ([id number]) [facility] ([facility]) [address] [place] [address] Calcium [Mass/Vol] 8.0 mg/dL Low 8.6-10.6 [facility] Comment on above: Performed By: #### 2 4323-8 #### QUIN HARTMAN L ([id number]) [facility] ([facility]) [address] [place] [address] Chloride [Moles/Vol] 106 mmol/L Normal 98-107 [facility] Comment on above: Performed By: #### 2 4323-8 #### QUIN HARTMAN L ([id number]) [facility] ([facility]) [address] [place] [address] 45747 CO2 [Moles/Vol] 17 mmol/L Low 21-32 [facility] Comment on above: Performed By: #### 2 4323-8 #### QUIN HARTMAN L ([id number]) [facility] ([facility]) [address] [place] [address] 18768 Creatinine [Mass/Vol] 0.54 mg/dL Normal 0.50-1.05 [facility] Comment on above: Performed By: #### 2 4323-8 #### QUIN HARTMAN L ([id number]) [facility] ([facility]) [address] [place] [address] 98443 GFR/1.73 sq M.predicted MDRD (S/P/Bld) [Vol rate/Area] mL/min/{1.73_m2} Normal >60 [facility] Comment on above: Result Comment: Calc ulations of estimated GFR are performed using the 2020 CKD-EPI Study Refit equation without the race variable for the IDMS-Traceable creatinine methods. https://jasn.asnjournals.org/content/early//ASN.883567 6840 Performed By: #### 2 4323-8 #### QUIN HARTMAN L ([id number]) [facility] ([facility]) [address] [place] [address] 09670 Glucose [Mass/Vol] 113 mg/dL High 74-99 [facility] Comment on above: Performed By: #### 2 4323-8 #### QUIN Simon ([id number]) [facility] ([facility]) [address] [place] [address] 67426 Potassium [Moles/Vol] 4.1 mmol/L Normal 3.5-5.3 [facility] Comment on above: Result Comment: MILD HEMOLYSIS DETECTED. The result may be falsely elevated due to hemolysis or other interferents. Clinical correlation is recommended. Repeat testing may be considered. Performed By: #### 2 4323-8 #### QUIN Simon ([id number]) [facility] ([facility]) [address] [place] [address] 24409 Protein [Mass/Vol] 6.0 g/dL Low 6.4-8.2 [facility] Comment on above: Performed By: #### 2 4323-8 #### QUIN Simon ([id number]) [facility] ([facility]) [address] [place] [address] 51256 Sodium [Moles/Vol] 135 mmol/L Low 136-145 [facility] Comment on above: Performed By: #### 2 4323-8 #### QUIN Simon ([id number]) [facility] ([facility]) [address] [place] [address] 26397 Urea nitrogen [Mass/Vol] 9 mg/dL Normal 6-23 [facility] Comment on above: Performed By: #### 2 4323-8 #### QUIN Simon ([id number]) [facility] ([facility]) [address] [place] [address] 94052 Albumin BCP dye [Mass/Vol] 3.3 g/dL Low 3.4 - 5.0 g/dL [facility] ALP [Catalytic activity/Vol] 87 U/L 33 - 110 U/L [facility] ALT With P-5'-P [Catalytic activity/Vol] 7 U/L 7 - 45 U/L [facility] Comment on above: Patients treated wit h Sulfasalazine may generate falsely decreased results for ALT. Anion gap [Moles/Vol] 13 mmol/L 10 - 2 0 mmol/L [facility] AST With P-5'-P [Catalytic activity/Vol] 10 U/L 9 - 39 U/L [facility] Bilirubin [Mass/Vol] 0.4 mg/dL 0.0 - 1 .2 mg/dL [facility] Calcium [Mass/Vol] 8.5 mg/dL Low 8.6 - 10. 6 mg/dL [facility] Chloride [Moles/Vol] 105 mmol/L 98 - 10 7 mmol/L [facility] CO2 [Moles/Vol] 22 mmol/L 21 - 32 mmol/L [facility] Creatinine [Mass/Vol] 0.52 mg/dL 0.50 - 1.05 mg/dL [facility] eGFR - PINF [facility] Comment on above: Calculations of zoya mated GFR are performed using the 2020 CKD-EPI Study Refit equation without the race variable for the IDMS-Traceable creatinine methods. https://jasn.asnjournals.org/content/early//ASN.331577 1864 Glucose [Mass/Vol] 136 mg/dL High 74 - 99 mg/dL [facility] Interpretation and review of laboratory results Abnormal [facility] Potassium [Moles/Vol] 3.9 mmol/L 3.5 - 5.3 mmol/L [facility] Protein [Mass/Vol] 6.2 g/dL Low 6.4 - 8.2 g/dL [facility] Sodium [Moles/Vol] 136 mmol/L 136 - 145 mmol/L [facility] Urea nitrogen [Mass/Vol] 8 mg/dL 6 - 23 mg/dL [facility] Albumin BCP dye [Mass/Vol] 3.3 g/dL Low 3.4-5.0 [facility] Comment on above: Performed By: #### 2 4323-8 #### QUIN Simon ([id number]) [facility] ([facility]) [address] [place] [address] ALP [Catalytic activity/Vol] 87 U/L Normal 33-110 [facility] Comment on above: Performed By: #### 2 4323-8 #### QUIN Simon ([id number]) [facility] ([facility]) [address] [place] [address] ALT With P-5'-P [Catalytic activity/Vol] 7 U/L Normal 7-45 [facility] Comment on above: Result Comment: Nguyen ents treated with Sulfasalazine may generate falsely decreased results for ALT. Performed By: #### 2 4323-8 #### QUIN Simon ([id number]) [facility] ([facility]) [address] [place] [address] Anion gap [Moles/Vol] 13 mmol/L Normal 10-20 [facility] Comment on above: Performed By: #### 2 4323-8 #### QUIN Simon ([id number]) [facility] ([facility]) [address] [place] [address] AST With P-5'-P [Catalytic activity/Vol] 10 U/L Normal 9-39 [facility] Comment on above: Performed By: #### 2 4323-8 #### QUIN Simon ([id number]) [facility] ([facility]) [address] [place] [address] Bilirubin [Mass/Vol] 0.4 mg/dL Normal 0.0-1.2 [facility] Comment on above: Performed By: #### 2 4323-8 #### QUIN Simon ([id number]) [facility] ([facility]) [address] [place] [address] Calcium [Mass/Vol] 8.5 mg/dL Low 8.6-10.6 [facility] Comment on above: Performed By: #### 2 4323-8 #### QUIN Simon ([id number]) [facility] ([facility]) [address] [place] [address] Chloride [Moles/Vol] 105 mmol/L Normal 98-107 [facility] Comment on above: Performed By: #### 2 4323-8 #### QUIN Simon ([id number]) [facility] ([facility]) [address] [place] [address] CO2 [Moles/Vol] 22 mmol/L Normal 21-32 [facility] Comment on above: Performed By: #### 2 4323-8 #### QUIN Simon ([id number]) [facility] ([facility]) [address] [place] [address] 44014 Creatinine [Mass/Vol] 0.52 mg/dL Normal 0.50-1.05 [facility] Comment on above: Performed By: #### 2 4323-8 #### QUIN Simon ([id number]) [facility] ([facility]) [address] [place] [address] 95934 GFR/1.73 sq M.predicted MDRD (S/P/Bld) [Vol rate/Area] mL/min/{1.73_m2} Normal >60 [facility] Comment on above: Result Comment: Calc ulations of estimated GFR are performed using the 2020 CKD-EPI Study Refit equation without the race variable for the IDMS-Traceable creatinine methods. https://jasn.asnjournals.org/content/early//ASN.249056 6305 Performed By: #### 2 4323-8 #### QUIN Simon ([id number]) [facility] ([facility]) [address] [place] [address] 98573 Glucose [Mass/Vol] 136 mg/dL High 74-99 [facility] Comment on above: Performed By: #### 2 4323-8 #### QUIN Simon ([id number]) [facility] ([facility]) [address] [place] [address] 47310 Potassium [Moles/Vol] 3.9 mmol/L Normal 3.5-5.3 [facility] Comment on above: Performed By: #### 2 4323-8 #### QUIN Simon ([id number]) [facility] ([facility]) [address] [place] [address] 03787 Protein [Mass/Vol] 6.2 g/dL Low 6.4-8.2 [facility] Comment on above: Performed By: #### 2 4323-8 #### QUIN Simon ([id number]) [facility] ([facility]) [address] [place] [address] 96089 Sodium [Moles/Vol] 136 mmol/L Normal 136-145 [facility] Comment on above: Performed By: #### 2 4323-8 #### QUIN Simon ([id number]) [facility] ([facility]) [address] [place] [address] 82567 Urea nitrogen [Mass/Vol] 8 mg/dL Normal 6-23 [facility] Comment on above: Performed By: #### 2 4323-8 #### QUIN Simon ([id number]) [facility] ([facility]) [address] [place] [address] 89524 HIV 1+2 Ab+HIV1 p24 Agon HIV 1+2 Ab+HIV1 p24 Ag IA Ql Non-Reactive Normal Nonreactive [facility] Comment on above: Order Comment: The b eta-hydroxybutyrate test performance characteristics have been validated by [facility]. This test has not been approved by the FDA; however such approval is not necessary. Performed By: #### 3 5255-9 #### QUIN Simon ([id number]) [facility] ([facility]) [address] [place] [address] 60678 MR ANGIO HEAD WO IV CONTRAST on 02-09-2025 MR ANGIO HEAD WO IV CONTRAST Interpreted By: Ranjan Trivedi, STUDY: MR BRAIN WO IV CONTRAST; MR ANGIO HEAD WO IV CONTRAST; MR VENOGRAPHY INTRACRANIAL WO IV CONTRAST; 02/10/2025 5:02 am INDICATION: Signs/Symptoms:intractabl e headache, sPEC; Signs/Symptoms:intractabl e NIELSEN, sPEC. COMPARISON: None. ACCESSION NUMBER(S): [id number]; [id number]; [id number] ORDERING CLINICIAN: CLAIR CASTRO TECHNIQUE: Axial diffusion, axial T2, axial FLAIR, axial gradient echo T2, coronal T1, and sagittal T1 weighted MRI images of the brain were obtained without intravenous contrast administration. In addition, bxmg-hg-ktwdif MRA and MRV images of the intracranial [...] no significant focal stenosis or aneurysm. The zpju-is-bhpnak intracranial MRV is within normal limits without [...] no significant focal stenosis or aneurysm. The gjfv-os-qsskpq intracranial MRV is within normal limits without evidence of venous sinus thrombosis. MACRO: None. Signed by: Ranjan Trivedi 02/10/2025 5:28 AM Dictation workstation: [id number] [facility] MR BRAIN WO IV CONTRASTon MR BRAIN WO IV CONTRAST Interpreted By: Ranjan Trivedi, STUDY: MR BRAIN WO IV CONTRAST; MR ANGIO HEAD WO IV CONTRAST; MR VENOGRAPHY INTRACRANIAL WO IV CONTRAST; 02/10/2025 5:02 am INDICATION: Signs/Symptoms:intractabl e headache, sPEC; Signs/Symptoms:intractabl e NIELSEN, sPEC. COMPARISON: None. ACCESSION NUMBER(S): [id number]; [id number]; [id number] ORDERING CLINICIAN: CLAIR CASTRO TECHNIQUE: Axial diffusion, axial T2, axial FLAIR, axial gradient echo T2, coronal T1, and sagittal T1 weighted MRI images of the brain were obtained without intravenous contrast administration. In addition, blke-mz-qpeuax MRA and MRV images of the intracranial [...] no significant focal stenosis or aneurysm. The riqr-bm-gsopdr intracranial MRV is within normal limits without [...] no significant focal stenosis or aneurysm. The moce-lc-ysubqz intracranial MRV is within normal limits without evidence of venous sinus thrombosis. MACRO: None. Signed by: Ranjan Trivedi 02/10/2025 5:28 AM Dictation workstation: [id number] [facility] MR VENOGRAPHY INTRACRANIAL W O IV CONTRASTon 02-09-2025 MR VENOGRAPHY INTRACRANIAL WO IV CONTRAST Interpreted By: Ranjan Trivedi, STUDY: MR BRAIN WO IV CONTRAST; MR ANGIO HEAD WO IV CONTRAST; MR VENOGRAPHY INTRACRANIAL WO IV CONTRAST; 02/10/2025 5:02 am INDICATION: Signs/Symptoms:intractabl e headache, sPEC; Signs/Symptoms:intractabl e NIELSEN, sPEC. COMPARISON: None. ACCESSION NUMBER(S): [id number]; [id number]; [id number] ORDERING CLINICIAN: CLAIR CASTRO TECHNIQUE: Axial diffusion, axial T2, axial FLAIR, axial gradient echo T2, coronal T1, and sagittal T1 weighted MRI images of the brain were obtained without intravenous contrast administration. In addition, zapn-xs-ccuzgo MRA and MRV images of the intracranial [...] no significant focal stenosis or aneurysm. The vdpn-jh-angdci intracranial MRV is within normal limits without [...] no significant focal stenosis or aneurysm. The zdor-wk-bwcfzo intracranial MRV is within normal limits without evidence of venous sinus thrombosis. MACRO: None. Signed by: Ranjan Trivedi 02/10/2025 5:28 AM Dictation workstation: [id number] Normal [facility] Rubella virus IgG IA Qnon Rubella virus IgG IA Ql Positive Normal Negative [facility] Comment on above: Order Comment: The b eta-hydroxybutyrate test performance characteristics have been validated by [facility]. This test has not been approved by the FDA; however such approval is not necessary. Performed By: #### 3 5255-9 #### QUIN Simon ([id number]) [facility] ([facility]) [address] [place] [address] Rubella virus IgG Qn (S) 1.5 IA Normal <=0.7 IA [facility] Comment on above: Order Comment: The b eta-hydroxybutyrate test performance characteristics have been validated by [facility]. This test has not been approved by the FDA; however such approval is not necessary. Performed By: #### 3 5255-9 #### QUIN Simon ([id number]) [facility] ([facility]) [address] [place] [address] Syphilis Screen with ReflexO rdered By: Alexandre Kenny on 02-09-2025 T. pallidum IgG+IgM IA Ql (S) Non-Reactive Nonreactive [facility] Comment on above: No significant level of Treponema pallidum antibody detected. Repeat testing in 2 to 4 weeks may be considered if early infection or incubating syphilis infection is suspected. T. pallidum IgG+IgM IA Ql (S )Ordered By: Alexandre Kenny on 02-09-2025 Interpretation and review of laboratory results Normal [facility] Beta hydroxybutyrate [Mass o r moles/Vol]on 02-08-2025 Beta hydroxybutyrate [Moles/Vol] 0.15 mmol/L 0.02 - 0.27 mmol/L [facility] The beta-hydroxybuty rate test performance characteristics have been validated by [facility]. This test has not been approved by the FDA; however such approval is not necessary. [facility] Beta hydroxybutyrate [Moles/Vol] 0.15 mmol/L Normal 0.02-0.27 [facility] Comment on above: Order Comment: The b eta-hydroxybutyrate test performance characteristics have been validated by [facility]. This test has not been approved by the FDA; however such approval is not necessary. Performed By: #### 3 084-1 #### QUIN Simon ([id number]) [facility] ([facility]) [address] [place] [address] Blood type and Indirect anti body screen panel (Bld)on 02-08-2025 ABO group Nom (Bld) O [facility] Blood group antibody screen Ql Negative [facility] D Ag Ql (Bld) Positive [facility] ABO group Nom (Bld) O Normal [facility] Comment on above: Performed By: #### 3 084-1 #### QUIN Simon ([id number]) [facility] ([facility]) [address] [place] [address] 13424 Blood group antibody screen Ql Negative [facility] Comment on above: Performed By: #### 3 084-1 #### QUIN Simon ([id number]) [facility] ([facility]) [address] [place], [place] [address] D Ag Ql (Bld) Positive [facility] Comment on above: Performed By: #### 3 084-1 #### QUIN Simon ([id number]) [facility] ([facility]) [address] [place], [place] [id number] CBC panel Auto (d)on 02-08 Erythrocyte distribution width (RBC) [Ratio] 13.2 % 11.5 - 14.5 % [facility] Hematocrit (Bld) [Volume fraction] 36.6 % 36.0 - 46.0 % [facility] Hemoglobin (Bld) [Mass/Vol] 11.9 g/dL Low 12.0 - 16.0 g/dL [facility] Interpretation and review of laboratory results Abnormal [facility] MCH (RBC) [Entitic mass] 28.1 pg 26.0 - 34.0 pg [facility] MCHC (RBC) [Mass/Vol] 32.5 g/dL 32.0 - 36.0 g/dL [facility] MCV (RBC) [Entitic vol] 87 fL 80 - 100 fL [facility] Nucleated RBC/100 WBC (Bld) [Ratio] 0 % [facility] Platelets (Bld) [#/Vol] 297 10*3/uL [facility] RBC (Bld) [#/Vol] 4.23 10*6/uL [facility] WBC (Bld) [#/Vol] 15.8 10*3/uL High [facility] Erythrocyte distribution width (RBC) [Ratio] 13.2 % Normal 11.5-14.5 [facility] Comment on above: Performed By: #### 3 084-1 #### QUIN Simon ([id number]) [facility] ([facility]) [address] [place] [address] 63173 Hematocrit (Bld) [Volume fraction] 36.6 % Normal 36.0-46.0 [facility] Comment on above: Performed By: #### 3 084-1 #### QUIN Simon ([id number]) [facility] ([facility]) [address] [place] [address] 39875 Hemoglobin (Bld) [Mass/Vol] 11.9 g/dL Low 12.0-16.0 [facility] Comment on above: Performed By: #### 3 084-1 #### QUIN Simon ([id number]) [facility] ([facility]) [address] [place] [address] 02393 MCH (RBC) [Entitic mass] 28.1 pg Normal 26.0-34.0 [facility] Comment on above: Performed By: #### 3 084-1 #### QUIN Simon ([id number]) [facility] ([facility]) [address] [place] [address] 39697 MCHC (RBC) [Mass/Vol] 32.5 g/dL Normal 32.0-36.0 [facility] Comment on above: Performed By: #### 3 084-1 #### QUIN Simon ([id number]) [facility] ([facility]) [address] [place] [address] 44302 MCV (RBC) [Entitic vol] 87 fL Normal 80-100 [facility] Comment on above: Performed By: #### 3 084-1 #### QUIN Simon ([id number]) [facility] ([facility]) [address] [place] [address] 19559 Nucleated RBC/100 WBC (Bld) [Ratio] 0.0 /100 WBCs Normal 0.0-0.0 [facility] Comment on above: Performed By: #### 3 084-1 #### QUIN Simon ([id number]) [facility] ([facility]) [address] [place] [address] 32009 Platelets (Bld) [#/Vol] 297 x10*3/uL Normal 150-450 [facility] Comment on above: Performed By: #### 3 084-1 #### QUIN Simon ([id number]) [facility] ([facility]) [address] [place] [address] RBC (Bld) [#/Vol] 4.23 x10*6/uL Normal 4.00-5.20 [facility] Comment on above: Performed By: #### 3 084-1 #### QUIN HARTMAN L ([id number]) [facility] ([facility]) [address] [place] [address] WBC (Bld) [#/Vol] 15.8 x10*3/uL High 4.4-11.3 [facility] Comment on above: Performed By: #### 3 084-1 #### QUIN HARTMAN L ([id number]) [facility] ([facility]) [address] [place] [address] Comprehensive metabolic 2000 panelon 02-08-2025 Albumin BCP dye [Mass/Vol] 3.5 g/dL 3.4 - 5.0 g/dL [facility] ALP [Catalytic activity/Vol] 89 U/L 33 - 110 U/L [facility] ALT With P-5'-P [Catalytic activity/Vol] 7 U/L 7 - 45 U/L [facility] Comment on above: Patients treated wit h Sulfasalazine may generate falsely decreased results for ALT. Anion gap [Moles/Vol] 13 mmol/L 10 - 2 0 mmol/L [facility] AST With P-5'-P [Catalytic activity/Vol] 9 U/L 9 - 39 U/L [facility] Bilirubin [Mass/Vol] 0.5 mg/dL 0.0 - 1 .2 mg/dL [facility] Calcium [Mass/Vol] 9.4 mg/dL 8.6 - 10. 6 mg/dL [facility] Chloride [Moles/Vol] 106 mmol/L 98 - 10 7 mmol/L [facility] CO2 [Moles/Vol] 21 mmol/L 21 - 32 mmol/L [facility] Creatinine [Mass/Vol] 0.51 mg/dL 0.50 - 1.05 mg/dL [facility] eGFR - PINF [facility] Comment on above: Calculations of zoya mated GFR are performed using the 2020 CKD-EPI Study Refit equation without the race variable for the IDMS-Traceable creatinine methods. https://jasn.asnjournals.org/content//ASN.426511 9609 Glucose [Mass/Vol] 104 mg/dL High 74 - 99 mg/dL [facility] Interpretation and review of laboratory results Abnormal [facility] Potassium [Moles/Vol] 4.1 mmol/L 3.5 - 5.3 mmol/L [facility] Protein [Mass/Vol] 6.5 g/dL 6.4 - 8.2 g/dL [facility] Sodium [Moles/Vol] 136 mmol/L 136 - 145 mmol/L [facility] Urea nitrogen [Mass/Vol] 9 mg/dL 6 - 23 mg/dL [facility] Albumin BCP dye [Mass/Vol] 3.5 g/dL Normal 3.4-5.0 [facility] Comment on above: Performed By: #### 3 084-1 #### QUIN Simon ([id number]) [facility] ([facility]) [address] [place] [address] 90762 ALP [Catalytic activity/Vol] 89 U/L Normal 33-110 [facility] Comment on above: Performed By: #### 3 084-1 #### QUIN Simon ([id number]) [facility] ([facility]) [address] [place] [address] ALT With P-5'-P [Catalytic activity/Vol] 7 U/L Normal 7-45 [facility] Comment on above: Result Comment: Nguyen ents treated with Sulfasalazine may generate falsely decreased results for ALT. Performed By: #### 3 084-1 #### QUIN Simon ([id number]) [facility] ([facility]) [address] [place] [address] Anion gap [Moles/Vol] 13 mmol/L Normal 10-20 [facility] Comment on above: Performed By: #### 3 084-1 #### QUIN Simon ([id number]) [facility] ([facility]) [address] [place] [address] AST With P-5'-P [Catalytic activity/Vol] 9 U/L Normal 9-39 [facility] Comment on above: Performed By: #### 3 084-1 #### QUIN Simon ([id number]) [facility] ([facility]) [address] [place] [address]6084 Bilirubin [Mass/Vol] 0.5 mg/dL Normal 0.0-1.2 [facility] Comment on above: Performed By: #### 3 084-1 #### QUIN Simon ([id number]) [facility] ([facility]) [address] [place] [address] 23935 Calcium [Mass/Vol] 9.4 mg/dL Normal 8.6-10.6 [facility] Comment on above: Performed By: #### 3 084-1 #### QUIN Simon ([id number]) [facility] ([facility]) [address] [place] [address] 52317 Chloride [Moles/Vol] 106 mmol/L Normal 98-107 [facility] Comment on above: Performed By: #### 3 084-1 #### QUIN Simon ([id number]) [facility] ([facility]) [address] [place] [address] 48368 CO2 [Moles/Vol] 21 mmol/L Normal 21-32 [facility] Comment on above: Performed By: #### 3 084-1 #### QUIN Simon ([id number]) [facility] ([facility]) [address] [place] [address] 08421 Creatinine [Mass/Vol] 0.51 mg/dL Normal 0.50-1.05 [facility] Comment on above: Performed By: #### 3 084-1 #### QUIN Simon ([id number]) [facility] ([facility]) [address] [place] [address] GFR/1.73 sq M.predicted MDRD (S/P/Bld) [Vol rate/Area] mL/min/{1.73_m2} Normal >60 [facility] Comment on above: Result Comment: Calc ulations of estimated GFR are performed using the 2020 CKD-EPI Study Refit equation without the race variable for the IDMS-Traceable creatinine methods. https://jasn.asnjournals.org/content/early//ASN.301757 4565 Performed By: #### 3 084-1 #### QUIN Simon ([id number]) [facility] ([facility]) [address] [place] [address] 96727 Glucose [Mass/Vol] 104 mg/dL High 74-99 [facility] Comment on above: Performed By: #### 3 084-1 #### QUIN Simon ([id number]) [facility] ([facility]) [address] [place] [address] Potassium [Moles/Vol] 4.1 mmol/L Normal 3.5-5.3 [facility] Comment on above: Performed By: #### 3 084-1 #### QUIN Simon ([id number]) [facility] ([facility]) [address] [place] [address] Protein [Mass/Vol] 6.5 g/dL Normal 6.4-8.2 [facility] Comment on above: Performed By: #### 3 084-1 #### QUIN HARTMAN L ([id number]) [facility] ([facility]) [address] [place] [address] 95719 Sodium [Moles/Vol] 136 mmol/L Normal 136-145 [facility] Comment on above: Performed By: #### 3 084-1 #### QUIN Simon ([id number]) [facility] ([facility]) [address] [place] [address] Urea nitrogen [Mass/Vol] 9 mg/dL Normal 6-23 [facility] Comment on above: Performed By: #### 3 084-1 #### QUIN Simon ([id number]) [facility] ([facility]) [address] [place] [address] Gas panel (BldV)on 5 Anion gap 4 (BldV) [Moles/Vol] 11 mmol/L 10.0 - 25.0 mmol/L [facility] Base excess Calc (BldV) [Moles/Vol] -3.2000 mmol/L Low -2.0 - 3.0 mmol/L [facility] Calcium.ionized (BldV) [Moles/Vol] 1.24 mmol/L 1.10 - 1.33 mmol/L [facility] Chloride (BldV) [Moles/Vol] 106 mmol/L 98 - 107 mmol/L [facility] CO2 (BldV) [Partial pressure] 30 mm[Hg] Low [facility] Glucose [Mass/Vol] 110 mg/dL High 74 - 99 mg/dL [facility] HCO3 (Bld) [Moles/Vol] 19.9 mmol/L Low 22.0 - 26.0 mmol/L [facility] Hematocrit Est (Bld) [Volume fraction] 44 % 36.0 - 46.0 % [facility] Hemoglobin (Bld) [Mass/Vol] 14.8 g/dL 12.0 - 16.0 g/dL [facility] Inhaled oxygen concentration 21 % [facility] Interpretation and review of laboratory results Abnormal [facility] Lactate (BldV) [Moles/Vol] 1 mmol/L 0.4 - 2.0 mmol/L [facility] Oxygen (BldV) [Partial pressure] 71 mm[Hg] High [facility] Oxygen saturation in Venous blood 96 % High 45 - 75 % [facility] Oxyhemoglobin (BldV) [Mass fraction] 93.3 % High 45.0 - 75.0 % [facility] pH (BldV) 7.43 [pH] 7.33 - 7.43 pH [facility] Potassium (BldV) [Moles/Vol] 3.8 mmol/L 3.5 - 5.3 mmol/L [facility] Sodium (BldV) [Moles/Vol] 133 mmol/L Low 136 - 145 mmol/L [facility] Anion gap 4 (BldV) [Moles/Vol] 11.0 mmol/L Normal 10.0-25.0 [facility] Comment on above: Performed By: #### 4 548-4 #### QUIN Simon ([id number]) [facility] ([facility]) [address] [place] [address] Base excess Calc (BldV) [Moles/Vol] -3.2000 mmol/L Low -2.0-3.0 [facility] Comment on above: Performed By: #### 4 548-4 #### QUIN Simon ([id number]) [facility] ([facility]) [address] [place] [address] 00699 Calcium.ionized (BldV) [Moles/Vol] 1.24 mmol/L Normal 1.10-1.33 [facility] Comment on above: Performed By: #### 4 548-4 #### QUIN Simon ([id number]) [facility] ([facility]) [address] [place] [address] 38816 Chloride (BldV) [Moles/Vol] 106 mmol/L Normal 98-107 [facility] Comment on above: Performed By: #### 4 548-4 #### QUIN Simon ([id number]) [facility] ([facility]) [address] [place] [address] 50465 CO2 (BldV) [Partial pressure] 30 mm Hg Low 41-51 [facility] Comment on above: Performed By: #### 4 548-4 #### QUIN Simon ([id number]) [facility] ([facility]) [address] [place] [address] 78668 Glucose [Mass/Vol] 110 mg/dL High 74-99 [facility] Comment on above: Performed By: #### 4 548-4 #### QUIN Simon ([id number]) [facility] ([facility]) [address] [place] [address] 96393 HCO3 (Bld) [Moles/Vol] 19.9 mmol/L Low 22.0-26.0 [facility] Comment on above: Performed By: #### 4 548-4 #### QUIN Simon ([id number]) [facility] ([facility]) [address] [place] [address] 71169 Hematocrit Est (Bld) [Volume fraction] 44.0 % Normal 36.0-46.0 [facility] Comment on above: Performed By: #### 4 548-4 #### QUIN Simon ([id number]) [facility] ([facility]) [address] [place] [address] 66178 Hemoglobin (Bld) [Mass/Vol] 14.8 g/dL Normal 12.0-16.0 [facility] Comment on above: Performed By: #### 4 548-4 #### QUIN Simon ([id number]) [facility] ([facility]) [address] [place] [address] 67028 Inhaled oxygen concentration 21 % Normal [facility] Comment on above: Performed By: #### 4 548-4 #### QUIN Simon ([id number]) [facility] ([facility]) [address] [place] [address] 82336 Lactate (BldV) [Moles/Vol] 1.0 mmol/L Normal 0.4-2.0 [facility] Comment on above: Performed By: #### 4 548-4 #### QUIN HARTMAN L ([id number]) [facility] ([facility]) [address] [place] [address] 90831 Oxygen (BldV) [Partial pressure] 71 mm Hg High 35-45 [facility] Comment on above: Performed By: #### 4 548-4 #### QUIN Simon ([id number]) [facility] ([facility]) [address] [place] [address] 27198 Oxygen saturation in Venous blood 96 % High 45-75 [facility] Comment on above: Performed By: #### 4 548-4 #### QUIN Simon ([id number]) [facility] ([facility]) [address] [place] [address] 39604 Oxyhemoglobin (BldV) [Mass fraction] 93.3 % High 45.0-75.0 [facility] Comment on above: Performed By: #### 4 548-4 #### QUIN Simon ([id number]) [facility] ([facility]) [address] [place] [address] 81402 pH (BldV) 7.43 [pH] Normal 7.33-7.43 [facility] Comment on above: Performed By: #### 4 548-4 #### QUIN Simon ([id number]) [facility] ([facility]) [address] [place] [address] 16465 Potassium (BldV) [Moles/Vol] 3.8 mmol/L Normal 3.5-5.3 [facility] Comment on above: Performed By: #### 4 548-4 #### QUIN Simon ([id number]) [facility] ([facility]) [address] [place] [address] 87104 Sodium (BldV) [Moles/Vol] 133 mmol/L Low 136-145 [facility] Comment on above: Performed By: #### 4 548-4 #### QUIN Simon ([id number]) [facility] ([facility]) [address] [place] [address] 11742 Glucose Test strip manual (B ld) [Mass/Vol]on 02-08-2025 Glucose [Mass/Vol] 117 mg/dL High 74 - 99 mg/dL [facility] Interpretation and review of laboratory results Abnormal [facility] Glucose [Mass/Vol] 117 mg/dL High 74-99 [facility] Comment on above: Performed By: #### 3 084-1 #### QUIN Simon ([id number]) [facility] ([facility]) [address] [place] [address] Glucose [Mass/Vol] 140 mg/dL High 74 - 99 mg/dL [facility] Interpretation and review of laboratory results Abnormal [facility] Glucose [Mass/Vol] 140 mg/dL High 74-99 [facility] Comment on above: Performed By: #### 4 548-4 #### QUIN Simon ([id number]) [facility] ([facility]) [address] [place], [place] [id number] Hepatitis B virus surface Ag on 02-08-2025 HBV surface Ag IA Ql Non-Reactive Normal Nonreactive U [facility] Comment on above: Result Comment: Biot in interference may cause falsely decreased results. Patients taking a Biotin dose of up to 5 mg/day should refrain from taking Biotin for 24 hours before sample collection. Providers may contact their local laboratory for further information. Performed By: #### 3 5255-9 #### QUIN Simon ([id number]) [facility] ([facility]) [address] [place] [address] Influenza virus A and B and SARS-CoV-2 (COVID-19) identified JYOTI+probe Nom (Resp)on 02-08-2025 FLUAV RNA JYOTI+probe Ql (Resp) Not detected Not Detected [facility] FLUBV RNA JYOTI+probe Ql (Resp) Not detected Not Detected [facility] Interpretation and review of laboratory results Normal [facility] SARS-CoV-2 (COVID-19) RNA JYOTI+probe Ql (Resp) Not detected Not Detected [facility] This assay is an FDA-cleared, in vitro diagnostic nucleic acid amplification test for the qualitative detection and differentiation of SARS CoV-2/ Influenza A/B from nasopharyngeal specimens collected from individuals with signs and symptoms of respiratory tract infections, and has been validated for use at [facility]. Negative results do not preclude COVID-19/ Influenza A/B infections and should not be used as the sole basis for diagnosis, treatment, or other management decisions. Testing for SARS CoV-2 is recommended only for patients who meet current clinical and/or epidemiological criteria defined by federal, state, or local public health directives. [facility] FLUAV RNA JYOTI+probe Ql (Resp) Not detected Normal Not Detected [facility] Comment on above: Order Comment: This assay is an FDA-cleared, in vitro diagnostic nucleic acid amplification test for the qualitative detection and differentiation of SARS CoV-2/ Influenza A/B from nasopharyngeal specimens collected from individuals with signs and symptoms of respiratory tract infections, and has been validated for use at [facility]. Negative results do not preclude COVID-19/ Influenza A/B infections and should not be used as the sole basis for diagnosis, treatment, or other management decisions. Testing for SARS CoV-2 is recommended only for patients who meet current clinical and/or epidemiological criteria defined by federal, state, or local public health directives. Performed By: #### 3 084-1 #### QUIN Simon ([id number]) [facility] ([facility]) [address] [place] [address] FLUBV RNA JYOTI+probe Ql (Resp) Not detected Normal Not Detected [facility] Comment on above: Order Comment: This assay is an FDA-cleared, in vitro diagnostic nucleic acid amplification test for the qualitative detection and differentiation of SARS CoV-2/ Influenza A/B from nasopharyngeal specimens collected from individuals with signs and symptoms of respiratory tract infections, and has been validated for use at [facility]. Negative results do not preclude COVID-19/ Influenza A/B infections and should not be used as the sole basis for diagnosis, treatment, or other management decisions. Testing for SARS CoV-2 is recommended only for patients who meet current clinical and/or epidemiological criteria defined by federal, state, or local public health directives. Performed By: #### 3 084-1 #### QUIN Simon ([id number]) [facility] ([facility]) [address] [place] [address] SARS-CoV-2 (COVID-19) RNA JYOTI+probe Ql (Resp) Not detected Normal Not Detected [facility] Comment on above: Order Comment: This assay is an FDA-cleared, in vitro diagnostic nucleic acid amplification test for the qualitative detection and differentiation of SARS CoV-2/ Influenza A/B from nasopharyngeal specimens collected from individuals with signs and symptoms of respiratory tract infections, and has been validated for use at [facility]. Negative results do not preclude COVID-19/ Influenza A/B infections and should not be used as the sole basis for diagnosis, treatment, or other management decisions. Testing for SARS CoV-2 is recommended only for patients who meet current clinical and/or epidemiological criteria defined by federal, state, or local public health directives. Performed By: #### 3 084-1 #### QUIN Simon ([id number]) [facility] ([facility]) [address] [place] [address] 94935 Lactate Dehydrogenaseon 040 LDH Lactate to pyruvate reaction [Catalytic activity/Vol] 185 U/L 84 - 246 U/L [facility] Lactate dehydrogenaseon 040 LDH Lactate to pyruvate reaction [Catalytic activity/Vol] 185 U/L Normal 84-246 [facility] Comment on above: Performed By: #### 3 084-1 #### QUIN Simon ([id number]) [facility] ([facility]) [address] [place] [address] 74876 Lipaseon 02-08-2025 Lipase [Catalytic activity/Vol] 13 U/L 9 - 82 U/L [facility] Lipase [Catalytic activity/V ol]on 02-08-2025 Interpretation and review of laboratory results Normal [facility] Venipuncture immedia tely after or during the administration of Metamizole may lead to falsely low results. Testing should be performed immediately prior to Metamizole dosing. [facility] No Panel Informationon 02-08 Interpretation and review of laboratory results Normal [facility] Proteinon 02-08-2025 Protein Qn (U) 33 mg/dL High 5-24 [facility] Comment on above: Performed By: #### 3 084-1 #### QUIN Simon ([id number]) [facility] ([facility]) [address] [place] [address] 47087 Protein Qn (U)on 02-08-2025 Creatinine (U) [Mass/Vol] 190.1 mg/dL 20.0 - 320.0 mg/dL [facility] Interpretation and review of laboratory results Abnormal [facility] Protein/Creatinine (U) [Mass ratio] 0.17 mg/g [facility] Creatinine (U) [Mass/Vol] 190.1 mg/dL Normal 20.0-320.0 [facility] Comment on above: Performed By: #### 3 084-1 #### QUIN Simon ([id number]) [facility] ([facility]) [address] [place] [address] 12803 Protein/Creatinine (U) [Mass ratio] 0.17 mg/mg Creat Normal 0.00-0.17 [facility] Comment on above: Performed By: #### 3 084-1 #### QUIN Simon ([id number]) [facility] ([facility]) [address] [place] [address] 66937 Protein, Urine Randomon 04-0 Protein Qn (U) 33 mg/dL High 5 - 24 mg/dL [facility] Streptococcus.beta-hemolytic on 02-08-2025 Streptococcus.beta-he molytic Org specific cx Ql (Genital specimen) Test: Group B Streptococcus (GBS) Screen, Culture Specimen Source: Vaginal/Rectal Specimen Type: Swab Specimen Date: 02/08/20252351 Result Date: 02/24/2025848 Result Status: Edited Result - FINAL Abnormal: Yes Resulting Lab: [facility] [address] [place] [address] 16492 CULTURE Isolated: Streptococcus agalactiae (Group B Streptococcus) (Abnormal) Streptococcus agalactiae (Group B Streptococcus) is universally susceptible to beta-lactam antibiotics and vancomycin. Routine susceptibility testing not performed. For penicillin allergic patients, please contact the laboratory within 5 days of collection at to request susceptibility testing. Abnormal [facility] Comment on above: Performed By: #### 1 4804-9 #### QUIN Simon ([id number]) [facility] ([facility]) [address] [place] [address] 64537 Treponema pallidum Ab.IgG+Ig Mon 02-08-2025 T. pallidum IgG+IgM IA Ql (S) Non-Reactive Normal Nonreactive [facility] Comment on above: Result Comment: No s ignificant level of Treponema pallidum antibody detected. Repeat testing in 2 to 4 weeks may be considered if early infection or incubating syphilis infection is suspected. Performed By: #### 2 4323-8 #### QUIN Simon ([id number]) [facility] ([facility]) [address] [place], [place] [id number] Triacylglycerol lipaseon Lipase [Catalytic activity/Vol] 13 U/L Normal 9-82 [facility] Comment on above: Order Comment: Venip uncture immediately after or during the administration of Metamizole may lead to falsely low results. Testing should be performed immediately prior to Metamizole dosing. Performed By: #### 3 084-1 #### QUIN Simon ([id number]) [facility] ([facility]) [address] [place] [address] 47760 Urateon 02-08-2025 Urate [Mass/Vol] 3.8 mg/dL Normal 2.3-6.7 [facility] Comment on above: Result Comment: Jessica puncture immediately after or during the administration of Metamizole may lead to falsely low results. Testing should be performed immediately prior to Metamizole dosing. Performed By: #### 3 084-1 #### QUIN Simon ([id number]) [facility] ([facility]) [address] [place] [address] 79623 Urate [Mass/Vol]on Interpretation and review of laboratory results Normal [facility] Uric Acidon 02-08-2025 Urate [Mass/Vol] 3.8 mg/dL 2.3 - 6.7 mg/dL [facility] Comment on above: Venipuncture immedia tely after or during the administration of Metamizole may lead to falsely low results. Testing should be performed immediately prior to Metamizole dosing. Glucose Test strip manual (B ld) [Mass/Vol]on 02-05-2025 Glucose [Mass/Vol] 175 mg/dL High 74-99 [facility] Comment on above: Performed By: #### 4 548-4 #### QUIN Simon ([id number]) [facility] ([facility]) [id number] [place] [address] OB FOLLOW UP TRANSABDOMIN AL APPROACHon 02-05-2025 [...] by U/S 34 w + 1 d AV by U/S: 03/18/2025 Assigned: based on stated [...] normal amount -No malformations by limited survey -[facility] 06/12 Thank you for allowing us to [...] EFW (oz) 4 oz EFW by: Hadlock ([id number]) Extended Stonemason Helper 2.7 mm Head / Face / Neck [...] Suboptimal view: limited by late gestational age [facility] [place] for pregnancyon Interpreted by: Carline Pollack [...] normal amount -No malformations by limited survey -[facility] 06/12 Thank you for allowing us to [...] EFW (oz) 4 oz EFW by: Hadlock ([id number]) Extended Stonemason Helper 2.7 mm Head / Face / Neck [...] Gestational- on Insulin History ====== General History Szaqrw948 cm Height (ft)5 ft Height (in)4 in Previous Outcomes Zsaiopp86 Para5 Children born living ?37w1 Pregnancies delivered at term (T)1 Pregnancies delivered (P)4 Abortions (A)9 Living children (L)5 Children born living <37w4 Miscarriages9 Other:Vaginal Delivery Maternal Assessment Kwltjk410 cm Height (ft)5 ft Height (in)4 in Hqbglq417 kg Weight (lb)285 lb Weight gain0 kg Weight gain (lb)0 lb BMI48.92 kg/m Physical Exam Initial weight (lb)285 lb ========= Schilling . Number of fetuses: 1 Dating ====== Cycle:LMP date not known [place] by prior [id number] w + 3 d VA by prior [...] normal amount -No malformations by limited survey -[facility] 06/12 Thank you for allowing us to [...] Biometry Standard BPD87.0 mm35w 1d >99% Hadlock TDZ872.9 mm 89% INTERGROWTH-21st HC306.9 mm34w 1d 85% Hadlock AC315.1 mm35w 3d >99% Hadlock Femur61.1 mm31w 5d 44% Hadlock HC / AC0.97 EFW2,395 g34w 1d 99% Hadlock EFW (lb)5 lb EFW (oz)4 oz EFW by:Hadlock ([id number]) Extended Vp2.7 mm Head / Face / Neck Cephalic index0.81 69% Nicolaides Extremities / Bony Struc FL / BPD0.70 FL / HC0.20 FL / AC0.19 Other Structures OHI415 bpm Anatomy Cranium:Normal Lateral ventricles:Normal Midline falx:Normal [...] Suboptimal view: limited by late gestational age [facility] Work Phone: [facility] Work Phone: Radiology Study observation (narrative) [facility] Work Phone: CBC panel Auto (Bld)on 01-29 Erythrocyte distribution width (RBC) [Ratio] 13.4 % Normal 11.5-14.5 [facility] Comment on above: Performed By: #### 5 8410-2 #### BREEZY LOCO ([id number]) [facility] ([facility]) [address] [place] [address] Hematocrit (Bld) [Volume fraction] 37.0 % Normal 36.0-46.0 [facility] Comment on above: Performed By: #### 5 8410-2 #### BREEZY LOCO ([id number]) [facility] ([facility]) [address] [place] [address] Hemoglobin (Bld) [Mass/Vol] 11.8 g/dL Low 12.0-16.0 [facility] Comment on above: Performed By: #### 5 8410-2 #### BREEZY LOCO ([id number]) [facility] ([facility]) [address] [place] [address] MCH (RBC) [Entitic mass] 28.2 pg Normal 26.0-34.0 [facility] Comment on above: Performed By: #### 5 8410-2 #### BREEZY LOCO ([id number]) [facility] ([facility]) [address] [place] [address] MCHC (RBC) [Mass/Vol] 31.9 g/dL Low 32.0-36.0 [facility] Comment on above: Performed By: #### 5 8410-2 #### BREEZY LOCO ([id number]) [facility] ([facility]) [address] [place] [address] MCV (RBC) [Entitic vol] 88 fL Normal 80-100 [facility] Comment on above: Performed By: #### 5 8410-2 #### BREEZY LOCO ([id number]) [facility] ([facility]) [address] [place] [address] Nucleated RBC/100 WBC (Bld) [Ratio] 0.0 /100 WBCs Normal 0.0-0.0 [facility] Comment on above: Performed By: #### 5 8410-2 #### BREEZY LOCO ([id number]) [facility] ([facility]) [address] [place] [address] Platelets (Bld) [#/Vol] 261 x10*3/uL Normal 150-450 [facility] Comment on above: Performed By: #### 5 8410-2 #### BREEZY LOCO ([id number]) [facility] ([facility] [facility]) [address] [place] [address] RBC (Bld) [#/Vol] 4.19 x10*6/uL Normal 4.00-5.20 [facility] Comment on above: Performed By: #### 5 8410-2 #### BREEZY LOCO ([id number]) [facility] ([facility]) [address] [place] [address] WBC (Bld) [#/Vol] 15.6 x10*3/uL High 4.4-11.3 [facility] Comment on above: Performed By: #### 5 8410-2 #### BREEZY LOCO ([id number]) [facility] ([facility]) [address] [place] [address] Comprehensive metabolic 2000 panelon 01-29-2025 Albumin BCP dye [Mass/Vol] 3.4 g/dL Normal 3.4-5.0 [facility] Comment on above: Performed By: #### 2 4323-8 #### BREEZY LOCO ([id number]) [facility] ([facility]) [address] [place] [address] ALP [Catalytic activity/Vol] 73 U/L Normal 33-110 [facility] Comment on above: Performed By: #### 2 4323-8 #### BREEZY LOCO ([id number]) [facility] ([facility]) [address] [place] [address] ALT With P-5'-P [Catalytic activity/Vol] 6 U/L Low 7-45 [facility] Comment on above: Result Comment: Nguyen ents treated with Sulfasalazine may generate falsely decreased results for ALT. Performed By: #### 2 4323-8 #### BREEZY LOCO ([id number]) [facility] ([facility]) [address] [place] [address] Anion gap [Moles/Vol] 15 mmol/L Normal 10-20 [facility] Comment on above: Performed By: #### 2 4323-8 #### BREEZY LOCO ([id number]) [facility] ([facility]) [address] [place] [address] AST With P-5'-P [Catalytic activity/Vol] 9 U/L Normal 9-39 [facility] Comment on above: Performed By: #### 2 4323-8 #### BREEZY LOCO ([id number]) [facility] ([facility]) [address] [place] [address] Bilirubin [Mass/Vol] 0.5 mg/dL Normal 0.0-1.2 [facility] Comment on above: Performed By: #### 2 4323-8 #### BREEZY LOCO ([id number]) [facility] ([facility]) [address] [place] [address] Calcium [Mass/Vol] 8.9 mg/dL Normal 8.6-10.3 [facility] Comment on above: Performed By: #### 2 4323-8 #### BREEZY LOCO ([id number]) [facility] ([facility]) [address] [place] [address] Chloride [Moles/Vol] 105 mmol/L Normal 98-107 [facility] Comment on above: Performed By: #### 2 4323-8 #### BREEZY LOCO ([id number]) [facility] ([facility]) [address] [place] [address] CO2 [Moles/Vol] 21 mmol/L Normal 21-32 [facility] Comment on above: Performed By: #### 2 4323-8 #### BREEZY LOCO ([id number]) [facility] ([facility]) [address] [place] [address] Creatinine [Mass/Vol] 0.55 mg/dL Normal 0.50-1.05 [facility] Comment on above: Performed By: #### 2 4323-8 #### BREEZY LOCO ([id number]) [facility] ([facility]) [address] [place] [address] GFR/1.73 sq M.predicted MDRD (S/P/Bld) [Vol rate/Area] mL/min/{1.73_m2} Normal >60 [facility] Comment on above: Result Comment: Calc ulations of estimated GFR are performed using the 2020 CKD-EPI Study Refit equation without the race variable for the IDMS-Traceable creatinine methods. https://jasn.asnjournals.org/content//ASN.979495 0073 Performed By: #### 2 4323-8 #### BREEZY LOCO ([id number]) [facility] ([facility]) [address] [place] [address] Glucose [Mass/Vol] 93 mg/dL Normal 74-99 [facility] Comment on above: Performed By: #### 2 4323-8 #### BREEZY LOCO ([id number]) [facility] ([facility]) [address] [place] [address] Potassium [Moles/Vol] 3.6 mmol/L Normal 3.5-5.3 [facility] Comment on above: Performed By: #### 2 4323-8 #### BREEZY LOCO ([id number]) [facility] ([facility]) [address] [place] [address] Protein [Mass/Vol] 6.4 g/dL Normal 6.4-8.2 [facility] Comment on above: Performed By: #### 2 4323-8 #### BREEZY LOCO ([id number]) [facility] ([facility]) [address] [place] [address] Sodium [Moles/Vol] 137 mmol/L Normal 136-145 [facility] Comment on above: Performed By: #### 2 4323-8 #### BREEZY LOCO ([id number]) [facility] ([facility]) [address] [place] [address] Urea nitrogen [Mass/Vol] 6 mg/dL Normal 6-23 [facility] Comment on above: Performed By: #### 2 4323-8 #### BREEZY LOCO ([id number]) [facility] ([facility]) [address] [place] [address] Glucose Test strip manual (B ld) [Mass/Vol]on 01-29-2025 Glucose [Mass/Vol] 124 mg/dL High 74-99 [facility] Comment on above: Performed By: #### 4 548-4 #### QUIN Simon ([id number]) [facility] ([facility]) [address] [place] [address] MR/BMS.BPon 03-27-2025 MR/BMS.BP Normal [facility] US OB LIMITED 1+ FETUSESon 0 01-29-2025 [...] ====== Transabdominal ultrasound examination. View: Sufficient Normal [facility] MR/BMS.BPon 01-27-2025 MR/BMS.BP Normal [facility] PROTEIN, TOTAL W/CREAT, RAND OM URINEon 01-23-2025 Creatinine (U) [Mass/Vol] 61 mg/dL Normal 20-275 [facility] Comment on above: Performed By: #### 1 033, 67431 #### [facility] [address], [address] [place], [place] [id number] Lab Instructor: Salvador Swanson MD Protein (U) [Mass/Vol] 15 mg/dL Normal 5-24 [facility] Comment on above: Performed By: #### 1 702, 44576 #### [facility] [address], [address] [place] [address] Lab Instructor: Salvador Swanson MD PROTEIN/CREATININE RATIO 246 mg/g creat High 24-184 [facility] Comment on above: Performed By: #### 1 419, 90164 #### [facility] [address], [address] [place] [address] Lab Instructor: Salvador Swanson MD PROTEIN/CREATININE RATIO 0.246 mg/mg creat High 0.024-0.184 [facility] Comment on above: Performed By: #### 1 308, 51824 #### [facility] [address] [facility], [address] [place] [address] Lab Instructor: Salvador Swanson MD CBC panel Auto (Bld)on 01-22 Erythrocyte distribution width (RBC) [Ratio] 13.4 % Normal 11.5-14.5 [facility] Comment on above: Performed By: #### 5 8410-2 #### BREEZY LOCO ([id number]) [facility] ([facility]) [address] [place] [address] Hematocrit (Bld) [Volume fraction] 36.7 % Normal 36.0-46.0 [facility] Comment on above: Performed By: #### 5 8410-2 #### BREEZY LOCO ([id number]) [facility] ([facility]) [address] [place] [address] Hemoglobin (Bld) [Mass/Vol] 11.8 g/dL Low 12.0-16.0 [facility] Comment on above: Performed By: #### 5 8410-2 #### BREEZY LOCO ([id number]) [facility] ([facility]) [address] [place] [address] MCH (RBC) [Entitic mass] 28.4 pg Normal 26.0-34.0 [facility] Comment on above: Performed By: #### 5 8410-2 #### BREEZY LOCO ([id number]) [facility] ([facility]) [address] [place] [address] MCHC (RBC) [Mass/Vol] 32.2 g/dL Normal 32.0-36.0 [facility] Comment on above: Performed By: #### 5 8410-2 #### BREEZY LOCO ([id number]) [facility] ([facility]) [address] [place] [address] MCV (RBC) [Entitic vol] 88 fL Normal 80-100 [facility] Comment on above: Performed By: #### 5 8410-2 #### BREEZY LOCO ([id number]) [facility] ([facility]) [address] [place] [address] Nucleated RBC/100 WBC (Bld) [Ratio] 0.0 /100 WBCs Normal 0.0-0.0 [facility] Comment on above: Performed By: #### 5 8410-2 #### BREEZY LOCO ([id number]) [facility] ([facility]) [address] [place] [address] Platelets (Bld) [#/Vol] 250 x10*3/uL Normal 150-450 [facility] Comment on above: Performed By: #### 5 8410-2 #### BREEZY LOCO ([id number]) [facility] ([facility]) [address] [place] [address] RBC (Bld) [#/Vol] 4.15 x10*6/uL Normal 4.00-5.20 [facility] Comment on above: Performed By: #### 5 8410-2 #### BREEZY LOCO ([id number]) [facility] ([facility]) [address] [place] [address] WBC (Bld) [#/Vol] 14.4 x10*3/uL High 4.4-11.3 [facility] Comment on above: Performed By: #### 5 8410-2 #### BREEZY LOCO ([id number]) [facility] ([facility]) [address] [place] [address] Comprehensive metabolic 2000 panelon 01-22-2025 Albumin BCP dye [Mass/Vol] 3.6 g/dL Normal 3.4-5.0 [facility] Comment on above: Performed By: #### 2 4323-8 #### BREEZY LOCO ([id number]) [facility] ([facility]) [address] [place] [address] ALP [Catalytic activity/Vol] 79 U/L Normal 33-110 [facility] Comment on above: Performed By: #### 2 4323-8 #### BREEZY LOCO ([id number]) [facility] ([facility]) [address] [place] [address] ALT With P-5'-P [Catalytic activity/Vol] 7 U/L Normal 7-45 [facility] Comment on above: Result Comment: Nguyen ents treated with Sulfasalazine may generate falsely decreased results for ALT. Performed By: #### 2 4323-8 #### BREEZY LOCO ([id number]) [facility] ([facility]) [address] [place] [address] Anion gap [Moles/Vol] 14 mmol/L Normal 10-20 [facility] Comment on above: Performed By: #### 2 4323-8 #### BREEZY LOCO ([id number]) [facility] ([facility]) [address] [place] [address] AST With P-5'-P [Catalytic activity/Vol] 15 U/L Normal 9-39 [facility] Comment on above: Performed By: #### 2 4323-8 #### BREEZY LOCO ([id number]) [facility] ([facility]) [address] [place] [address] Bilirubin [Mass/Vol] 0.5 mg/dL Normal 0.0-1.2 [facility] Comment on above: Performed By: #### 2 4323-8 #### BREEZY LOCO ([id number]) [facility] ([facility]) [address] [place] [address] Calcium [Mass/Vol] 9.0 mg/dL Normal 8.6-10.3 [facility] Comment on above: Performed By: #### 2 4323-8 #### BREEZY LOCO ([id number]) [facility] ([facility]) [address] [place] [address] Chloride [Moles/Vol] 105 mmol/L Normal 98-107 [facility] Comment on above: Performed By: #### 2 4323-8 #### BREEZY LOCO ([id number]) [facility] ([facility]) [address] [place] [address] CO2 [Moles/Vol] 18 mmol/L Low 21-32 [facility] Comment on above: Performed By: #### 2 4323-8 #### BREEZY LOCO ([id number]) [facility] ([facility]) [address] [place] [address] Creatinine [Mass/Vol] 0.47 mg/dL Low 0.50-1.05 [facility] Comment on above: Performed By: #### 2 4323-8 #### BREEZY LOCO ([id number]) [facility] ([facility]) [address] [place] [address] GFR/1.73 sq M.predicted MDRD (S/P/Bld) [Vol rate/Area] mL/min/{1.73_m2} Normal >60 [facility] Comment on above: Result Comment: Calc ulations of estimated GFR are performed using the 2020 CKD-EPI Study Refit equation without the race variable for the IDMS-Traceable creatinine methods. https://jasn.asnjournals.org/content/early//ASN.361063 7567 Performed By: #### 2 4323-8 #### BREEZY LOCO ([id number]) [facility] ([facility]) [address] [place] [address] Glucose [Mass/Vol] 122 mg/dL High 74-99 [facility] Comment on above: Performed By: #### 2 4323-8 #### BREEZY LOCO ([id number]) [facility] ([facility]) [address] [place] [address] Potassium [Moles/Vol] 3.8 mmol/L Normal 3.5-5.3 [facility] Comment on above: Performed By: #### 2 4323-8 #### BREEZY LOCO ([id number]) [facility] ([facility]) [address] [place] [address] Protein [Mass/Vol] 6.7 g/dL Normal 6.4-8.2 [facility] Comment on above: Performed By: #### 2 4323-8 #### BREEZY LOCO ([id number]) [facility] ([facility]) [address] [place] [address] Sodium [Moles/Vol] 133 mmol/L Low 136-145 [facility] Comment on above: Performed By: #### 2 4323-8 #### BREEZY LOCO ([id number]) [facility] ([facility]) [address] [place] [address] Urea nitrogen [Mass/Vol] 6 mg/dL Normal 6-23 [facility] Comment on above: Performed By: #### 2 4323-8 #### BREEZY LOCO ([id number]) [facility] ([facility]) [address] [place] [address] Glucose Test strip manual (B ld) [Mass/Vol]on 01-22-2025 Glucose [Mass/Vol] 178 mg/dL High 74 - 99 mg/dL [facility] Interpretation and review of laboratory results Abnormal [facility] Glucose [Mass/Vol] 178 mg/dL High 74-99 [facility] Comment on above: Performed By: #### 4 548-4 #### QUIN Simon ([id number]) [facility] ([facility]) [address] [place] [address] US OB LIMITED 1+ FETUSESon 0 01-22-2025 [...] Suboptimal view: limited by maternal body habitus [facility] US for pregnancyon Interpreted by: Judit Patino [...] GA 29 w + 3 d Assigned AV: 04/06/2025 Growth Overview Exam date GA BPD [...] on Insulin. Polyhydramnios History ====== General History Awelhy306 cm Height (ft)5 ft Height (in)4 in Previous Outcomes Onqgsvo91 Para5 Children born living ?37w1 Pregnancies delivered at term (T)1 Pregnancies delivered (P)4 Abortions (A)9 Living children (L)5 Children born living <37w4 Miscarriages9 Other:Vaginal Delivery Maternal Assessment Jiaqla417 cm Height (ft)5 ft Height (in)4 in Gslubi440 kg Weight (lb)285 lb Weight gain0 kg Weight gain (lb)0 lb BMI48.92 kg/m Physical Exam Initial weight (lb)285 lb ========= Schilling . Number of fetuses: 1 Dating ====== Cycle:LMP date not known GA by prior ocopuccqre99 w + 3 d [place] by prior [...] Suboptimal view: limited by maternal body habitus [facility] Work Phone: Radiology Study observation (narrative) [facility] Work Phone: US for pregnancyOrdered By: Judit Jeffery on 01-22-2025 [facility] Work Phone: CBC (H/H, RBC, INDICES, WBC, PLT)on 01-16-2025 Erythrocyte distribution width (RBC) [Ratio] 12.6 % Normal 11.0-15.0 [facility] Comment on above: Performed By: #### 1 672, 82245 #### [facility] [place] [address] Lab Instructor: Salvador Swanson MD Hematocrit (Bld) [Volume fraction] 35.3 % Normal 35.0-45.0 [facility] Comment on above: Performed By: #### 1 953, 94827 #### [facility] [place] [address] Lab Instructor: Salvador Swanson MD Hemoglobin (Bld) [Mass/Vol] 11.8 g/dL Normal 11.7-15.5 [facility] Comment on above: Performed By: #### 1 097, 19934 #### [facility] [place] [address] Lab Instructor: Salvador Swanson MD MCH (RBC) [Entitic mass] 29.4 pg Normal 27.0-33.0 [facility] Comment on above: Performed By: #### 1 713, 09049 #### [facility] [place] [address] Lab Instructor: Salvador Swanson MD MCHC (RBC) [Mass/Vol] 33.4 g/dL Normal 32.0-36.[address] [facility] Comment on above: Result Comment: For adults, a slight decrease in the calculated MCHC value (in the range of 30 to 32 g/dL) is most likely not clinically significant; however, it should be interpreted with caution in correlation with other red cell parameters and the patient's clinical condition. Performed By: #### 1 394, 39576 #### [facility] of [place] [address] Lab Instructor: Salvador Swanson MD MCV (RBC) [Entitic vol] 87.8 fL Normal 80.0-100.0 [facility] Comment on above: Performed By: #### 1 759, 38995 #### [facility] [place] [address] Lab Instructor: Salvador Swanson MD Platelet mean volume (Bld) [Entitic vol] 10.4 fL Normal 7.5-12.5 [facility] Comment on above: Performed By: #### 1 759, 16725 #### [facility] [place] [address] Lab Instructor: Salvador Swanson MD Platelets (Bld) [#/Vol] 238 10*3/uL Normal 140-400 [facility] Comment on above: Performed By: #### 1 079, 34109 #### [facility] [place] [address] Lab Instructor: Salvador Swanson MD RBC (Bld) [#/Vol] 4.02 10*6/uL Normal 3.80-5.10 [facility] Comment on above: Performed By: #### 1 959, 03296 #### [facility] [place] [address] Lab Instructor: Salvador Swanson MD WBC (Bld) [#/Vol] 13.7 10*3/uL High 3.8-10.8 [facility] Comment on above: Performed By: #### 1 759, 83153 #### [facility] [place] [address] Lab Instructor: Salvador Swanson MD COMPREHENSIVE METABOLIC PANE L W/ANION GAPon 01-16-2025 Albumin [Mass/Vol] 3.4 g/dL Low 3.6-5.1 [facility] Comment on above: Performed By: #### 1 47, 13708 #### [facility] of [address], [address] [place] [address] Lab Instructor: Salvador Swanson MD ALP [Catalytic activity/Vol] 64 U/L Normal 31-125 [facility] Comment on above: Performed By: #### 1 139, 61732 #### [facility] of [address], [address] [place] [address] Lab Instructor: Salvador Swanson MD ALT [Catalytic activity/Vol] 5 U/L Low 6-29 [facility] Comment on above: Performed By: #### 1 079, 50333 #### [facility] [place] [address] Lab Instructor: Salvador Swanson MD AST [Catalytic activity/Vol] 9 U/L Low 10-30 [facility] Comment on above: Performed By: #### 1 859, 42058 #### [facility] [place] [address] Lab Instructor: Salvador Swanson MD Bilirubin [Mass/Vol] 0.4 mg/dL Normal 0.2-1.2 [facility] Comment on above: Performed By: #### 1 206, 60572 #### [facility] [place] [address] Lab Instructor: Salvador Swanson MD Calcium [Mass/Vol] 8.9 mg/dL Normal 8.6-10.2 [facility] Comment on above: Performed By: #### 1 119, 55197 #### [facility] [place] [address] Lab Instructor: Salvador Swanson MD Chloride [Moles/Vol] 104 mmol/L Normal 98-110 [facility] Comment on above: Performed By: #### 1 327, 56234 #### [facility] [place] [address] Lab Instructor: Salvador Swanson MD CO2 [Moles/Vol] 22 mmol/L Normal 20-32 [facility] Comment on above: Performed By: #### 1 879, 15786 #### [facility] [address], [address] [place] [address] Lab Instructor: Salvador Swanson MD Creatinine [Mass/Vol] 0.62 mg/dL Normal 0.50-0.[address] [facility] Comment on above: Performed By: #### 1 759, 81288 #### [facility] [address], [address] [place] [address] Lab Instructor: Salvador Swanson MD ELECTROLYTE BALANCE 12 mmol/L (calc) Normal 7-17 [facility] Comment on above: Performed By: #### 1 119, 99172 #### [facility] [place] [address] Lab Instructor: Salvador Swanson MD GFR/1.73 sq M.predicted among non-blacks MDRD (S/P/Bld) [Vol rate/Area] 119 mL/min/{1.73_m2} Normal > OR = 60 [facility] Comment on above: Performed By: #### 1 65, 96263 #### [facility] [place] [address] Lab Instructor: Salvador Swanson MD Glucose [Mass/Vol] 122 mg/dL High 65-99 [facility] Comment on above: Result Comment: Fasting reference interval For someone without known diabetes, a glucose value between 100 and 125 mg/dL is consistent with prediabetes and should be confirmed with a follow-up test. Performed By: #### 1 299, 49499 #### [facility] [address], [address] [place] [address] Lab Instructor: Salvador Swanson MD Potassium [Moles/Vol] 3.6 mmol/L Normal 3.5-5.[address] [facility] Comment on above: Performed By: #### 1 558, 90668 #### [facility] [place] [address] Lab Instructor: Salvador Swanson MD Protein [Mass/Vol] 6.3 g/dL Normal 6.1-8.1 [facility] Comment on above: Performed By: #### 1 759, 84460 #### [facility] [address], [address] [place] [address] Lab Instructor: Salvador Swanson MD Sodium [Moles/Vol] 138 mmol/L Normal 135-146 [facility] Comment on above: Performed By: #### 1 759, 49724 #### [facility] [address], [address] [place] [address] Lab Instructor: Salvador Swanson MD Urea nitrogen [Mass/Vol] 6 mg/dL Low 7-25 [facility] Comment on above: Performed By: #### 1 759, 08284 #### [facility] [address], [address] [place] [address] Lab Instructor: Salvador Swanson MD Glucose Test strip manual (B ld) [Mass/Vol]on 01-15-2025 Glucose [Mass/Vol] 118 mg/dL High 74 - 99 mg/dL [facility] Interpretation and review of laboratory results Abnormal [facility] Glucose [Mass/Vol] 118 mg/dL High 74-99 [facility] Comment on above: Performed By: #### 4 548-4 #### QUIN Simon ([id number]) [facility] ([facility]) [address] [place] [address] US OB FOLLOW UP TRANSABDOMIN AL APPROACHon [...] EFW (oz) 8 oz EFW by: Hadlock ([id number]-FL) Extended Stonemason Helper 8.8 mm Head / Face / Neck [...] Suboptimal view: limited by late gestational age [facility] US for pregnancyon Interpreted by: Jasmina Benítez [...] EFW (oz) 8 oz EFW by: Hadlock ([id number]-FL) Extended Stonemason Helper 8.8 mm Head / Face / Neck [...] Gestational- on Insulin. History ====== General History Csjesf832 cm Height (ft)5 ft Height (in)4 in Previous Outcomes Spgdyre60 Para5 Children born living ?37w1 Pregnancies delivered at term (T)1 Pregnancies delivered (P)4 Abortions (A)9 Living children (L)5 Children born living <37w4 Miscarriages9 Other:Vaginal Delivery Maternal Assessment Ydzyqo495 cm Height (ft)5 ft Height (in)4 in Mfafwr758 kg Weight (lb)285 lb Weight gain0 kg Weight gain (lb)0 lb BMI48.92 kg/m Physical Exam Initial weight (lb)285 lb ========= Schilling . Number of fetuses: 1 Dating ====== Cycle:LMP date not known GA by prior [id number] w + 3 d [place] by prior [...] (lb)3 lb EFW (oz)8 oz EFW by:Hadlock (IPH-OH-EB-FL) Extended Vp8.8 mm Head / Face / Neck Cephalic index0.79 54% Nicolaides Extremities / Bony Struc FL / BPD0.73 FL / HC0.20 FL / AC0.22 Other Structures THQ336 bpm Anatomy Cranium:Normal Lateral ventricles:Normal Midline falx:Normal [...] Suboptimal view: limited by late gestational age [facility] Work Phone: Radiology Study observation (narrative) [facility] Work Phone: US for pregnancyOrdered By: Jasmina Benítez on 01-15-2025 [facility] Work Phone: MR/BMS.BPon 01-13-2025 MR/BMS.BP Normal [facility] CBC panel Auto (Bld)on 01-08 Erythrocyte distribution width (RBC) [Ratio] 13.1 % 11.5 - 14.5 % [facility] Hematocrit (Bld) [Volume fraction] 36.8 % 36.0 - 46.0 % [facility] Hemoglobin (Bld) [Mass/Vol] 11.6 g/dL Low 12.0 - 16.0 g/dL [facility] Interpretation and review of laboratory results Abnormal [facility] MCH (RBC) [Entitic mass] 29.2 pg 26.0 - 34.0 pg [facility] MCHC (RBC) [Mass/Vol] 31.5 g/dL Low 32.0 - 36.0 g/dL [facility] MCV (RBC) [Entitic vol] 93 fL 80 - 100 fL [facility] Nucleated RBC/100 WBC (Bld) [Ratio] 0 % [facility] Platelets (Bld) [#/Vol] 232 10*3/uL [facility] RBC (Bld) [#/Vol] 3.97 10*6/uL Low [facility] WBC (Bld) [#/Vol] 15.6 10*3/uL High [facility] Erythrocyte distribution width (RBC) [Ratio] 13.1 % Normal 11.5-14.5 [facility] Comment on above: Performed By: #### 5 8410-2 #### QUIN Simon ([id number]) [facility] ([facility]) [address] [place] [id number] Hematocrit (Bld) [Volume fraction] 36.8 % Normal 36.0-46.0 [facility] Comment on above: Performed By: #### 5 8410-2 #### QUIN Simon ([id number]) [facility] ([facility]) [address] [place] [address] 39783 Hemoglobin (Bld) [Mass/Vol] 11.6 g/dL Low 12.0-16.0 [facility] Comment on above: Performed By: #### 5 8410-2 #### QUIN Simon ([id number]) [facility] ([facility]) [address] [place] [address] 59701 MCH (RBC) [Entitic mass] 29.2 pg Normal 26.0-34.0 [facility] Comment on above: Performed By: #### 5 8410-2 #### QUIN Simon ([id number]) [facility] ([facility]) [address] [place] [address] [place] [address] MCHC (RBC) [Mass/Vol] 31.5 g/dL Low 32.0-36.0 [facility] Comment on above: Performed By: #### 5 8410-2 #### QUIN Simon ([id number]) [facility] ([facility]) [id number] [place] [address] 62525 MCV (RBC) [Entitic vol] 93 fL Normal 80-100 [facility] Comment on above: Performed By: #### 5 8410-2 #### QUIN Simon ([id number]) [facility] ([facility]) [id number] [place] [address] 17270 Nucleated RBC/100 WBC (Bld) [Ratio] 0.0 /100 WBCs Normal 0.0-0.0 [facility] Comment on above: Performed By: #### 5 8410-2 #### QUIN Simon ([id number]) [facility] ([facility]) [address] [place] [address] 42343 Platelets (Bld) [#/Vol] 232 x10*3/uL Normal 150-450 [facility] Comment on above: Performed By: #### 5 8410-2 #### QUIN Simon ([id number]) [facility] ([facility]) [address] [place] [address] 76581 RBC (Bld) [#/Vol] 3.97 x10*6/uL Low 4.00-5.20 [facility] Comment on above: Performed By: #### 5 8410-2 #### QUIN Simon ([id number]) [facility] ([facility]) [address] [place] [address] 30705 WBC (Bld) [#/Vol] 15.6 x10*3/uL High 4.4-11.3 [facility] Comment on above: Performed By: #### 5 8410-2 #### QUIN Simon ([id number]) [facility] ([facility]) [address] [place] [address] 10597 Comprehensive metabolic 2000 panelon 01-08-2025 Albumin BCP dye [Mass/Vol] 3.3 g/dL Low 3.4 - 5.0 g/dL [facility] ALP [Catalytic activity/Vol] 65 U/L 33 - 110 U/L [facility] ALT With P-5'-P [Catalytic activity/Vol] 6 U/L Low 7 - 45 U/L [facility] Comment on above: Patients treated wit h Sulfasalazine may generate falsely decreased results for ALT. Anion gap [Moles/Vol] 16 mmol/L 10 - 2 0 mmol/L [facility] AST With P-5'-P [Catalytic activity/Vol] 9 U/L 9 - 39 U/L [facility] Bilirubin [Mass/Vol] 0.5 mg/dL 0.0 - 1 .2 mg/dL [facility] Calcium [Mass/Vol] 8.8 mg/dL 8.6 - 10. 6 mg/dL [facility] Chloride [Moles/Vol] 106 mmol/L 98 - 10 7 mmol/L [facility] CO2 [Moles/Vol] 18 mmol/L Low 21 - 32 mmol/L [facility] Creatinine [Mass/Vol] 0.5 mg/dL 0.50 - 1.05 mg/dL [facility] eGFR - PINF [facility] Comment on above: Calculations of zoya mated GFR are performed using the 2020 CKD-EPI Study Refit equation without the race variable for the IDMS-Traceable creatinine methods. https://jasn.asnjournals.org/content//ASN.857827 4896 Glucose [Mass/Vol] 94 mg/dL 74 - 99 mg/dL [facility] Interpretation and review of laboratory results Abnormal [facility] Potassium [Moles/Vol] 4 mmol/L 3.5 - 5.3 mmol/L [facility] Protein [Mass/Vol] 6 g/dL Low 6.4 - 8.2 g/dL [facility] Sodium [Moles/Vol] 136 mmol/L 136 - 145 mmol/L [facility] Urea nitrogen [Mass/Vol] 7 mg/dL 6 - 23 mg/dL [facility] Albumin BCP dye [Mass/Vol] 3.3 g/dL Low 3.4-5.0 [facility] Comment on above: Performed By: #### 5 8410-2 #### QUIN Simon ([id number]) [facility] ([facility]) [address] [place] [address] ALP [Catalytic activity/Vol] 65 U/L Normal 33-110 [facility] Comment on above: Performed By: #### 5 8410-2 #### QUIN Simon ([id number]) [facility] ([facility]) [address] [place] [address] ALT With P-5'-P [Catalytic activity/Vol] 6 U/L Low 7-45 [facility] Comment on above: Result Comment: Nguyen ents treated with Sulfasalazine may generate falsely decreased results for ALT. Performed By: #### 5 8410-2 #### QUIN Simon ([id number]) [facility] ([facility]) [address] [place] [address] 78495 Anion gap [Moles/Vol] 16 mmol/L Normal 10-20 [facility] Comment on above: Performed By: #### 5 8410-2 #### QUIN Simon ([id number]) [facility] ([facility]) [address] [place] [address] AST With P-5'-P [Catalytic activity/Vol] 9 U/L Normal 9-39 [facility] Comment on above: Performed By: #### 5 8410-2 #### QUIN Simon ([id number]) [facility] ([facility]) [address] [place] [address] Bilirubin [Mass/Vol] 0.5 mg/dL Normal 0.0-1.2 [facility] Comment on above: Performed By: #### 5 8410-2 #### QUIN Simon ([id number]) [facility] ([facility]) [address] [place] [address] Calcium [Mass/Vol] 8.8 mg/dL Normal 8.6-10.6 [facility] Comment on above: Performed By: #### 5 8410-2 #### QUIN Simon ([id number]) [facility] ([facility]) [address] [place] [address] Chloride [Moles/Vol] 106 mmol/L Normal 98-107 [facility] Comment on above: Performed By: #### 5 8410-2 #### QUIN Simon ([id number]) [facility] ([facility]) [address] [place] [address] CO2 [Moles/Vol] 18 mmol/L Low 21-32 [facility] Comment on above: Performed By: #### 5 8410-2 #### QUIN Simon ([id number]) [facility] ([facility]) [address] [place] [address] Creatinine [Mass/Vol] 0.50 mg/dL Normal 0.50-1.05 [facility] Comment on above: Performed By: #### 5 8410-2 #### QUIN Simon ([id number]) [facility] ([facility]) [address] [place] [address] GFR/1.73 sq M.predicted MDRD (S/P/Bld) [Vol rate/Area] mL/min/{1.73_m2} Normal >60 [facility] Comment on above: Result Comment: Calc ulations of estimated GFR are performed using the 2020 CKD-EPI Study Refit equation without the race variable for the IDMS-Traceable creatinine methods. https://jasn.asnjournals.org/content//ASN.597838 1250 Performed By: #### 5 8410-2 #### QUIN Simon ([id number]) [facility] ([facility]) [address] [place] [address] Glucose [Mass/Vol] 94 mg/dL Normal 74-99 [facility] Comment on above: Performed By: #### 5 8410-2 #### QUIN Simon ([id number]) [facility] ([facility]) [address] [place] [address] Potassium [Moles/Vol] 4.0 mmol/L Normal 3.5-5.3 [facility] Comment on above: Performed By: #### 5 8410-2 #### QUIN Simon ([id number]) [facility] ([facility]) [address] [place] [address] Protein [Mass/Vol] 6.0 g/dL Low 6.4-8.2 [facility] Comment on above: Performed By: #### 5 8410-2 #### QUIN Simon ([id number]) [facility] ([facility]) [address] [place] [address] 96763 Sodium [Moles/Vol] 136 mmol/L Normal 136-145 [facility] Comment on above: Performed By: #### 5 8410-2 #### QUIN Simon ([id number]) [facility] ([facility]) [address] [place] [address] 07058 Urea nitrogen [Mass/Vol] 7 mg/dL Normal 6-23 [facility] Comment on above: Performed By: #### 5 8410-2 #### QUIN Simon ([id number]) [facility] ([facility]) [address] [place] [address] 29693 Glucose Test strip manual (B ld) [Mass/Vol]on 01-08-2025 Glucose [Mass/Vol] 91 mg/dL 74 - 99 mg/dL [facility] Interpretation and review of laboratory results Normal [facility] Glucose [Mass/Vol] 91 mg/dL Normal 74-99 [facility] Comment on above: Performed By: #### 5 8410-2 #### QUIN Simon ([id number]) [facility] ([facility]) [address] [place] [address] 17139 Glucose [Mass/Vol] 172 mg/dL High 74-99 [facility] Comment on above: Performed By: #### 5 8410-2 #### QUIN Simon ([id number]) [facility] ([facility]) [address] [place] [address] 89919 Proteinon - Protein Qn (U) 11 mg/dL Normal 5-24 [facility] Comment on above: Performed By: #### 5 8410-2 #### QUIN Simon ([id number]) [facility] ([facility]) [address] [place] [address] 05234 Protein Qn (U)on 01-08-2025 Creatinine (U) [Mass/Vol] 46.3 mg/dL 20.0 - 320.0 mg/dL [facility] Interpretation and review of laboratory results Abnormal [facility] Protein/Creatinine (U) [Mass ratio] 0.24 mg/g High [facility] Creatinine (U) [Mass/Vol] 46.3 mg/dL Normal 20.0-320.0 [facility] Comment on above: Performed By: #### 5 8410-2 #### QUIN Simon ([id number]) [facility] ([facility]) [address] [place] [address] 87708 Protein/Creatinine (U) [Mass ratio] 0.24 mg/mg Creat High 0.00-0.17 [facility] Comment on above: Performed By: #### 5 8410-2 #### QUIN Simon ([id number]) [facility] ([facility]) [address] [place] [address] 63581 Protein, Urine Randomon -0 Protein Qn (U) 11 mg/dL 5 - 24 mg/dL [facility] US OB LIMITED 1+ FETUSESon 0 01-08-2025 [...] view: limited by maternal body habitus Normal [facility] Urinalysis macro (dipstick) panel (U)on 01-08-2025 [facility] ([facility] fld[facility] Bilirubin, UA Negative [facility] Work Phone: Blood, UA Negative [facility] Work Phone: Clarity, UA Clear [facility] Work Phone: Color, UA Yellow [facility] Work Phone: Glucose, UA Negative [facility] Work Phone: Ketones, UA Negative [facility] Work Phone: Leukocytes, UA TRACE [facility] Work Phone: Nitrite, UA Negative [facility] Work Phone: pH, UA 6 [facility] Work Phone: Protein, UA Negative [facility] Work Phone: Spec Grav, UA 1.015 [facility] Work Phone: Urobilinogen, UA 0.2 [facility] Work Phone: [facility] Work Phone: MR/BMS.BPon 01-06-2025 MR/BMS.BP Normal [facility] MR/BMS.BPon 01-02-2025 MR/BMS.BP Normal [facility] PROTEIN, TOTAL W/CREAT, RAND OM URINEon 01-02-2025 Creatinine (U) [Mass/Vol] 97 mg/dL Normal 20-275 [facility] Comment on above: Performed By: #### 1 715 #### [facility] of [address], [address] [place] [address] Lab Instructor: Salvador Swanson MD Protein (U) [Mass/Vol] 27 mg/dL High 5-24 [facility] Comment on above: Performed By: #### 1 715 #### [facility] [address], [address] [place] [address] Lab Instructor: Salvador Swanson MD PROTEIN/CREATININE RATIO 278 mg/g creat High 24-184 [facility] Comment on above: Performed By: #### 1 715 #### [facility] [address], [address] [place] [address] Lab Instructor: Salvador Swanson MD PROTEIN/CREATININE RATIO 0.278 mg/mg creat High 0.024-0.184 [facility] Comment on above: Performed By: #### 1 715 #### [facility] [address], [address] [place] [address] Lab Instructor: Salvador Swanson MD Glucose Test strip manual (B ld) [Mass/Vol]on 01-01-2025 Glucose [Mass/Vol] 206 mg/dL High 74 - 99 mg/dL [facility] Interpretation and review of laboratory results Abnormal [facility] Glucose [Mass/Vol] 206 mg/dL High 74-99 [facility] Comment on above: Performed By: #### 5 8410-2 #### QUIN Simon ([id number]) [facility] ([facility]) [address] [place] [address] US OB FOLLOW UP TRANSABDOMIN AL APPROACHon [...] of AF: normal amount. MVP 6.9 cm. SERNEA 20.9 cm. Q1 6.9 cm, Q2 3.8 [...] Suboptimal view: limited by maternal body habitus [facility] US for pregnancyon Interpreted by: Carline Pollack [...] (BMI > 40) History ====== General History Dkmszd872 cm Height (ft)5 ft Height (in)4 in Previous Outcomes Khmmlao19 Para5 Children born living ?37w1 Pregnancies delivered at term (T)1 Pregnancies delivered (P)4 Abortions (A)9 Living children (L)5 Children born living <37w4 Miscarriages9 Other:Vaginal Delivery Maternal Assessment Tjslap882 cm Height (ft)5 ft Height (in)4 in Loir[place]940 kg Weight (lb)285 lb BMI48.92 kg/m ========= Schilling . Number of fetuses: 1 Dating ====== Cycle:LMP date not known [place] by prior [id number] w + 3 d [place] by prior [...] Suboptimal view: limited by maternal body habitus [facility] Work Phone: Radiology Study observation (narrative) [facility] Work Phone: US for pregnancyOrdered By: Carline Pollack on 01-01-2025 [facility] Work Phone: Glucose Test strip manual (B ld) [Mass/Vol]on 12-25-2024 Glucose [Mass/Vol] 166 mg/dL High 74 - 99 mg/dL [facility] Interpretation and review of laboratory results Abnormal [facility] Glucose [Mass/Vol] 166 mg/dL High 74-99 [facility] Comment on above: Performed By: #### 5 8410-2 #### QUIN Simon ([id number]) [facility] ([facility]) [address] [place] [address] 44971 Glucose [Mass/Vol] 148 mg/dL High 74 - 99 mg/dL [facility] Interpretation and review of laboratory results Abnormal [facility] Glucose [Mass/Vol] 148 mg/dL High 74-99 [facility] Comment on above: Performed By: #### 5 8410-2 #### QUIN Simon ([id number]) [facility] ([facility]) [address] [place] [address] 65010 Glucose [Mass/Vol] 159 mg/dL High 74 - 99 mg/dL [facility] Interpretation and review of laboratory results Abnormal [facility] Glucose [Mass/Vol] 159 mg/dL High 74-99 [facility] Comment on above: Performed By: #### 2 341-6 #### QUIN Simon ([id number]) [facility] ([facility]) [address] [place] [address] 32675 Blood type and Indirect anti body screen panel (Bld)on 12-24-2024 ABO group Nom (Bld) O [facility] Blood group antibody screen Ql Negative [facility] D Ag Ql (Bld) Positive [facility] Glucose Test strip manual (B ld) [Mass/Vol]on 12-24-2024 Glucose [Mass/Vol] 132 mg/dL High 74 - 99 mg/dL [facility] Interpretation and review of laboratory results Abnormal [facility] Glucose [Mass/Vol] 132 mg/dL High 74-99 [facility] Comment on above: Performed By: #### 2 341-6 #### QUIN Simon ([id number]) [facility] ([facility]) [address] [place] [address] 84907 Glucose [Mass/Vol] 160 mg/dL High 74 - 99 mg/dL [facility] Interpretation and review of laboratory results Abnormal [facility] Glucose [Mass/Vol] 160 mg/dL High 74-99 [facility] Comment on above: Performed By: #### 2 341-6 #### QUIN Simon ([id number]) [facility] ([facility]) [address] [place] [address] 77676 Glucose [Mass/Vol] 139 mg/dL High 74 - 99 mg/dL [facility] Interpretation and review of laboratory results Abnormal [facility] Glucose [Mass/Vol] 139 mg/dL High 74-99 [facility] Comment on above: Performed By: #### 2 341-6 #### QUIN Simon ([id number]) [facility] ([facility]) [address] [place] [address] 62145 Glucose [Mass/Vol] 153 mg/dL High 74 - 99 mg/dL [facility] Interpretation and review of laboratory results Abnormal [facility] Glucose [Mass/Vol] 153 mg/dL High 74-99 [facility] Comment on above: Performed By: #### 2 341-6 #### QUIN Simon ([id number]) [facility] ([facility]) [address] [place] [address] 47260 Glucose [Mass/Vol] 164 mg/dL High 74 - 99 mg/dL [facility] Interpretation and review of laboratory results Abnormal [facility] Glucose [Mass/Vol] 164 mg/dL High 74-99 [facility] Comment on above: Performed By: #### 2 341-6 #### QUIN Simon ([id number]) [facility] ([facility]) [address] [place] [address] US OB DETAIL ANATOMYon 12-24-2024 OB DETAIL [...] EFW (oz) 15 oz EFW by: Hadlock (TAK-KB-MI-FL) Extended Stonemason Helper 6.7 mm Head / Face / Neck [...] Normal LVOT view: Normal 3-vessel view: Normal 8-oxoboi-etvvmbz view: Normal Heart / Thorax Cardiac axis: [...] Transabdominal ultrasound examination. View: Poor view Normal [facility] US for pregnancyon 5 Interpreted by: Earl [...] EFW (oz) 15 oz EFW by: Hadlock (NGB-NV-QH-FL) Extended Stonemason Helper 6.7 mm Head / Face / Neck [...] Normal LVOT view: Normal 3-vessel view: Normal 4-zeweql-vmwmsaj view: Normal Heart / Thorax Cardiac axis: [...] (BMI > 40) History ====== General History Ljsdyv695 cm Height (ft)5 ft Height (in)4 in Previous Outcomes Ougxlpq79 Para5 Children born living ?37w1 Pregnancies delivered at term (T)1 Pregnancies delivered (P)4 Abortions (A)9 Living children (L)5 Children born living <37w4 Miscarriages9 Other:Vaginal Delivery Maternal Assessment Ttyslj176 cm Height (ft)5 ft Height (in)4 in Mlqyyg490 kg Weight (lb)285 lb BMI48.92 kg/m ========= Schilling . Number of fetuses: 1 Dating ====== Cycle:LMP date not known [place] by prior [id number] w + 2 d [place] by prior [...] 74% Hadlock Femur46.3 mm25w 3d 39% Hadlock Zoqzcas44.1 mm 45% [facility] / AC1.13 JGT942 g25w 6d 74% Hadlock EFW (lb)1 lb EFW (oz)15 oz EFW by:Hadlock (DDS-ZO-MP-FL) Extended Vp6.7 mm Head / Face / Neck Cephalic index0.78 48% Nicolaides Extremities / Bony Struc FL / BPD0.69 FL / HC0.19 FL / AC0.21 Other Structures GJD738 bpm Anatomy Cranium:Normal Lateral ventricles:Normal Choroid plexus:Normal Midline falx:Normal Cavum septi pellucidi:Normal Cerebellum:Normal Cisterna magna:Normal Head / Neck Thalami:Normal Lips:Normal Profile:Normal Nose:Normal 4-chamber view:Normal RVOT view:Normal LVOT view:Normal 3-vessel view:Normal 1-xmkpsl-liyhrjf view:Normal Heart / Thorax Cardiac axis:Normal Diaphragm:Normal [...] ====== Transabdominal ultrasound examination. View: Poor view [facility] Work Phone: Radiology Study observation (narrative) [facility] Work Phone: US for pregnancyOrdered By: Earl Colorado on 12-24-2024 [facility] Work Phone: Beta hydroxybutyrate [Mass o r moles/Vol]on 12-23-2024 Beta hydroxybutyrate [Moles/Vol] 0.11 mmol/L 0.02 - 0.27 mmol/L [facility] The beta-hydroxybuty rate test performance characteristics have been validated by [facility]. This test has not been approved by the FDA; however such approval is not necessary. [facility] Beta hydroxybutyrate [Moles/Vol] 0.11 mmol/L Normal 0.02-0.27 [facility] Comment on above: Order Comment: The b eta-hydroxybutyrate test performance characteristics have been validated by [facility]. This test has not been approved by the FDA; however such approval is not necessary. Performed By: #### 3 5255-9 #### QUIN Simon ([id number]) [facility] ([facility]) [address] [place], [place] [id number] Blood type and Indirect anti body screen panel (Bld)on 12-23-2024 ABO group Nom (Bld) O Normal [facility] Comment on above: Performed By: #### 2 341-6 #### QUIN Simon ([id number]) [facility] ([facility]) [address] [place] [address] 74059 Blood group antibody screen Ql Negative [facility] Comment on above: Performed By: #### 2 341-6 #### QIUN Simon ([id number]) [facility] ([facility]) [address] [place] [address] 88440 D Ag Ql (Bld) Positive [facility] Comment on above: Performed By: #### 2 341-6 #### QUIN Simon ([id number]) [facility] ([facility]) [address] [place] [address] 53733 CBC panel Auto (Bld)on 12-23 Erythrocyte distribution width (RBC) [Ratio] 13.3 % 11.5 - 14.5 % [facility] Hematocrit (Bld) [Volume fraction] 35.7 % Low 36.0 - 46.0 % [facility] Hemoglobin (Bld) [Mass/Vol] 12.1 g/dL 12.0 - 16.0 g/dL [facility] MCH (RBC) [Entitic mass] 29.7 pg 26.0 - 34.0 pg [facility] MCHC (RBC) [Mass/Vol] 33.9 g/dL 32.0 - 36.0 g/dL [facility] MCV (RBC) [Entitic vol] 88 fL 80 - 100 fL [facility] Nucleated RBC/100 WBC (Bld) [Ratio] 0 % [facility] Platelets (Bld) [#/Vol] 207 10*3/uL [facility] RBC (Bld) [#/Vol] 4.08 10*6/uL [facility] WBC (Bld) [#/Vol] 14.6 10*3/uL High [facility] Erythrocyte distribution width (RBC) [Ratio] 13.3 % Normal 11.5-14.5 [facility] Comment on above: Performed By: #### 5 8410-2 #### QUIN Simon ([id number]) [facility] ([facility]) [address] [place] [address] 90680 Hematocrit (Bld) [Volume fraction] 35.7 % Low 36.0-46.0 [facility] Comment on above: Performed By: #### 5 8410-2 #### QUIN Simon ([id number]) [facility] ([facility]) [address] [place] [address] 45849 Hemoglobin (Bld) [Mass/Vol] 12.1 g/dL Normal 12.0-16.0 [facility] Comment on above: Performed By: #### 5 8410-2 #### QUIN Simon ([id number]) [facility] ([facility]) [address] [place] [address] 07006 MCH (RBC) [Entitic mass] 29.7 pg Normal 26.0-34.0 [facility] Comment on above: Performed By: #### 5 8410-2 #### QUIN Simon ([id number]) [facility] ([facility]) [address] [place] [address] 07825 MCHC (RBC) [Mass/Vol] 33.9 g/dL Normal 32.0-36.0 [facility] Comment on above: Performed By: #### 5 8410-2 #### QUIN Simon ([id number]) [facility] ([facility]) [address] [place] [address] 96220 MCV (RBC) [Entitic vol] 88 fL Normal 80-100 [facility] Comment on above: Performed By: #### 5 8410-2 #### QUIN Simon ([id number]) [facility] ([facility]) [address] [place] [address] 89422 Nucleated RBC/100 WBC (Bld) [Ratio] 0.0 /100 WBCs Normal 0.0-0.0 [facility] Comment on above: Performed By: #### 5 8410-2 #### QUIN Simon ([id number]) [facility] ([facility]) [address] [place] [address] 14702 Platelets (Bld) [#/Vol] 207 x10*3/uL Normal 150-450 [facility] Comment on above: Performed By: #### 5 8410-2 #### QUIN Simon ([id number]) [facility] ([facility]) [address] [place] [address] 10170 RBC (Bld) [#/Vol] 4.08 x10*6/uL Normal 4.00-5.20 [facility] [facility] Comment on above: Performed By: #### 5 8410-2 #### QUIN Simon ([id number]) [facility] ([facility]) [address] [place] [address] WBC (Bld) [#/Vol] 14.6 x10*3/uL High 4.4-11.3 [facility] Comment on above: Performed By: #### 5 8410-2 #### QUIN Simon ([id number]) [facility] ([facility]) [address] [place] [address]153 Comprehensive metabolic 2000 panelon 12-23-2024 Albumin BCP dye [Mass/Vol] 3.5 g/dL 3.4 - 5.0 g/dL [facility] ALP [Catalytic activity/Vol] 75 U/L 33 - 110 U/L [facility] ALT With P-5'-P [Catalytic activity/Vol] 5 U/L Low 7 - 45 U/L [facility] Comment on above: Patients treated wit h Sulfasalazine may generate falsely decreased results for ALT. Anion gap [Moles/Vol] 17 mmol/L 10 - 2 0 mmol/L [facility] AST With P-5'-P [Catalytic activity/Vol] 9 U/L 9 - 39 U/L [facility] Bilirubin [Mass/Vol] 0.4 mg/dL 0.0 - 1 .2 mg/dL [facility] Calcium [Mass/Vol] 9.1 mg/dL 8.6 - 10. 6 mg/dL [facility] Chloride [Moles/Vol] 103 mmol/L 98 - 10 7 mmol/L [facility] CO2 [Moles/Vol] 17 mmol/L Low 21 - 32 mmol/L [facility] Creatinine [Mass/Vol] 0.45 mg/dL Low 0.50 - 1.05 mg/dL [facility] eGFR - PINF [facility] Comment on above: Calculations of zoya mated GFR are performed using the 2020 CKD-EPI Study Refit equation without the race variable for the IDMS-Traceable creatinine methods. https://jasn.asnjournals.org/content//ASN.875421 7873 Glucose [Mass/Vol] 234 mg/dL High 74 - 99 mg/dL [facility] Interpretation and review of laboratory results Abnormal [facility] Potassium [Moles/Vol] 3.8 mmol/L 3.5 - 5.3 mmol/L [facility] Protein [Mass/Vol] 6.5 g/dL 6.4 - 8.2 g/dL [facility] Sodium [Moles/Vol] 133 mmol/L Low 136 - 145 mmol/L [facility] Urea nitrogen [Mass/Vol] 5 mg/dL Low 6 - 23 mg/dL [facility] Albumin BCP dye [Mass/Vol] 3.5 g/dL Normal 3.4-5.0 [facility] Comment on above: Performed By: #### 2 4323-8 #### QUIN Simon ([id number]) [facility] ([facility]) [address] [place] [address] ALP [Catalytic activity/Vol] 75 U/L Normal 33-110 [facility] Comment on above: Performed By: #### 2 4323-8 #### QUIN Simon ([id number]) [facility] ([facility]) [address] [place] [address] ALT With P-5'-P [Catalytic activity/Vol] 5 U/L Low 7-45 [facility] Comment on above: Result Comment: Nguyen ents treated with Sulfasalazine may generate falsely decreased results for ALT. Performed By: #### 2 4323-8 #### QUIN Simon ([id number]) [facility] ([facility]) [address] [place] [address] Anion gap [Moles/Vol] 17 mmol/L Normal 10-20 [facility] Comment on above: Performed By: #### 2 4323-8 #### QUIN Simon ([id number]) [facility] ([facility]) [address] [place] [address] AST With P-5'-P [Catalytic activity/Vol] 9 U/L Normal 9-39 [facility] Comment on above: Performed By: #### 2 4323-8 #### QUIN HARTMAN L ([id number]) [facility] ([facility]) [address] [place] [address] Bilirubin [Mass/Vol] 0.4 mg/dL Normal 0.0-1.2 [facility] Comment on above: Performed By: #### 2 4323-8 #### QUIN Simon ([id number]) [facility] ([facility]) [address] [place] [address] Calcium [Mass/Vol] 9.1 mg/dL Normal 8.6-10.6 [facility] Comment on above: Performed By: #### 2 4323-8 #### QUIN HARTMAN L ([id number]) [facility] ([facility]) [address] [place] [address] Chloride [Moles/Vol] 103 mmol/L Normal 98-107 [facility] Comment on above: Performed By: #### 2 4323-8 #### QUIN HARTMAN L ([id number]) [facility] ([facility]) [address] [place] [address] CO2 [Moles/Vol] 17 mmol/L Low 21-32 [facility] Comment on above: Performed By: #### 2 4323-8 #### QUIN Simon ([id number]) [facility] ([facility]) [address] [place] [address] Creatinine [Mass/Vol] 0.45 mg/dL Low 0.50-1.05 [facility] Comment on above: Performed By: #### 2 4323-8 #### QUIN Simon ([id number]) [facility] ([facility]) [address] [place] [address] GFR/1.73 sq M.predicted MDRD (S/P/Bld) [Vol rate/Area] mL/min/{1.73_m2} Normal >60 [facility] Comment on above: Result Comment: Calc ulations of estimated GFR are performed using the 2020 CKD-EPI Study Refit equation without the race variable for the IDMS-Traceable creatinine methods. https://jasn.asnjournals.org/content/early//ASN.224685 1514 Performed By: #### 2 4323-8 #### QUIN Simon ([id number]) [facility] ([facility]) [address] [place] [address] Glucose [Mass/Vol] 234 mg/dL High 74-99 [facility] Comment on above: Performed By: #### 2 4323-8 #### QUIN Simon ([id number]) [facility] ([facility]) [address] [place] [address] Potassium [Moles/Vol] 3.8 mmol/L Normal 3.5-5.3 [facility] Comment on above: Performed By: #### 2 4323-8 #### QUIN Simon ([id number]) [facility] ([facility]) [address] [place] [address] Protein [Mass/Vol] 6.5 g/dL Normal 6.4-8.2 [facility] Comment on above: Performed By: #### 2 4323-8 #### QUIN Simon ([id number]) [facility] ([facility]) [address] [place] [address] Sodium [Moles/Vol] 133 mmol/L Low 136-145 [facility] Comment on above: Performed By: #### 2 4323-8 #### QUIN Simon ([id number]) [facility] ([facility]) [address] [place] [address]859 Urea nitrogen [Mass/Vol] 5 mg/dL Low 6-23 [facility] Comment on above: Performed By: #### 2 4323-8 #### QUIN Simon ([id number]) [facility] ([facility]) [address] [place] [address]28[address] Glucose Test strip manual (B ld) [Mass/Vol]on 12-23-2024 Glucose [Mass/Vol] 170 mg/dL High 74 - 99 mg/dL [facility] Interpretation and review of laboratory results Abnormal [facility] Glucose [Mass/Vol] 170 mg/dL High 74-99 [facility] Comment on above: Performed By: #### 2 341-6 #### QUIN Simon ([id number]) [facility] ([facility]) [address] [place] [address] Glucose [Mass/Vol] 146 mg/dL High 74 - 99 mg/dL [facility] Interpretation and review of laboratory results Abnormal [facility] Glucose [Mass/Vol] 146 mg/dL High 74-99 [facility] Comment on above: Performed By: #### 2 341-6 #### QUIN Simon ([id number]) [facility] ([facility]) [address] [place] [address] Glucose [Mass/Vol] 301 mg/dL High 74 - 99 mg/dL [facility] Interpretation and review of laboratory results Abnormal [facility] Glucose [Mass/Vol] 301 mg/dL High 74-99 [facility] Comment on above: Performed By: #### 2 341-6 #### QUIN Simon ([id number]) [facility] ([facility]) [address] [place] [address]139 Glucose [Mass/Vol] 303 mg/dL High 74 - 99 mg/dL [facility] Interpretation and review of laboratory results Abnormal [facility] Glucose [Mass/Vol] 303 mg/dL High 74-99 [facility] Comment on above: Performed By: #### 2 341-6 #### QUIN Simon ([id number]) [facility] ([facility]) [address] [place] [address] 67184 HbA1c (Bld) [Mass fraction]o n 12-23-2024 Average glucose Estimated from glycated hemoglobin (Bld) [Mass/Vol] 140 mg/dL Not Established [facility] Diagnosis of Diabetes-Adults Non-Diabetic: < or = 5.6% Increased risk for developing diabetes: 5.7-6.4% Diagnostic of diabetes: > or = 6.5% [facility] Average glucose Estimated from glycated hemoglobin (Bld) [Mass/Vol] 140 mg/dL Normal Not Established [facility] Comment on above: Order Comment: Diagn osis of Diabetes-Adults Non-Diabetic: < or = 5.6% Increased risk for developing diabetes: 5.7-6.4% Diagnostic of diabetes: > or = 6.5% Performed By: #### 4 548-4 #### QUIN Simon ([id number]) [facility] ([facility]) [address] [place] [address] 99295 Hemoglobin A1con 12-23-2024 HbA1c (Bld) [Mass fraction] 6.5 % High See comment [facility] Hemoglobin A1c/Hemoglobin.to perico 12-23-2024 HbA1c (Bld) [Mass fraction] 6.5 % High See comment [facility] Comment on above: Order Comment: Diagn osis of Diabetes-Adults Non-Diabetic: < or = 5.6% Increased risk for developing diabetes: 5.7-6.4% Diagnostic of diabetes: > or = 6.5% Performed By: #### 4 548-4 #### QUIN Simon ([id number]) [facility] ([facility]) [address] [place], [place] [phone] Lactate Dehydrogenaseon 12-06 LDH Lactate to pyruvate reaction [Catalytic activity/Vol] 152 U/L 84 - 246 U/L [facility] Lactate dehydrogenaseon 12-06 LDH Lactate to pyruvate reaction [Catalytic activity/Vol] 152 U/L Normal 84-246 [facility] Comment on above: Performed By: #### 1 4804-9 #### QUIN Simon ([id number]) [facility] ([facility]) [address] [place], [place] [phone] No Panel Informationon 12-23 Interpretation and review of laboratory results Normal [facility] Interpretation and review of laboratory results Abnormal [facility] POCT UA (nonautomated) steffanyangel unakai resultedon 12-23-2024 Appearance (U) Clear Clear [facility] Work Phone: [phone] Glucose Test strip (U) [Mass/Vol] 500 (3+) Abnormal NEGATIVE mg/dl [facility] Work Phone: [phone] Hemoglobin Ql (U) Negative NEGATIVE [facility] Work Phone: [phone] Interpretation and review of laboratory results Abnormal [facility] Work Phone: [phone] Leukocyte esterase Test strip Ql (U) Negative NEGATIVE [facility] Work Phone: [phone] Nitrite Ql (U) Negative NEGATIVE [facility] Work Phone: [phone] pH (U) 5.5 [pH] No Reference Range Established [facility] Work Phone: [phone] POC Bilirubin, Urine Negative NEGATIVE [facility] Work Phone: [phone] POC Color, Urine Yellow Straw, Yellow, Light-Yellow [facility] Work Phone: [phone] POC Ketones, Urine Negative NEGATIVE mg/dl [facility] Work Phone: POC Protein, Urine 15 (1+) Abnormal NEGATIVE mg/dl [facility] Work Phone: POC Specific [place], Urine 1.025 1.005 - 1.035 [facility] Work Phone: Comment on above: 1.030, but not an op tion POC Urobilinogen, Urine 0.2 0.2, 1.0 EU/DL [facility] Work Phone: [facility] Work Phone: Proteinon 12-23-2024 Protein Qn (U) 8 mg/dL Normal 5-24 [facility] Comment on above: Performed By: #### 2 7298-9 #### QUIN Simon ([id number]) [facility] ([facility]) [address] [place] [address] Protein Qn (U)on 12-23-2024 Creatinine (U) [Mass/Vol] 30.1 mg/dL 20.0 - 320.0 mg/dL [facility] Interpretation and review of laboratory results Abnormal [facility] Protein/Creatinine (U) [Mass ratio] 0.27 mg/g High [facility] Creatinine (U) [Mass/Vol] 30.1 mg/dL Normal 20.0-320.0 [facility] Comment on above: Performed By: #### 2 7298-9 #### QUIN Simon ([id number]) [facility] ([facility]) [address] [place] [address] Protein/Creatinine (U) [Mass ratio] 0.27 mg/mg Creat High 0.00-0.17 [facility] Comment on above: Performed By: #### 2 7298-9 #### QUIN Simon ([id number]) [facility] ([facility]) [address] [place] [address] 39693 Protein, Urine Randomon 12-06 Protein Qn (U) 8 mg/dL 5 - 24 mg/dL [facility] Syphilis Screen with ReflexO rdered By: Naya Khan on 12-23-2024 T. pallidum IgG+IgM IA Ql (S) Non-Reactive Nonreactive [facility] Comment on above: No significant level of Treponema pallidum antibody detected. Repeat testing in 2 to 4 weeks may be considered if early infection or incubating syphilis infection is suspected. T. pallidum IgG+IgM IA Ql (S )Ordered By: Naya Khan on 12-23-2024 Interpretation and review of laboratory results [facility] Treponema pallidum Ab.IgG+Ig Mon 12-23-2024 T. pallidum IgG+IgM IA Ql (S) Non-Reactive Normal Nonreactive [facility] Comment on above: Order Comment: This test is for Syphilis screening, for Syphilis monitoring order RPR with Titer, Syphilis Monitoring Result Comment: No s ignificant level of Treponema pallidum antibody detected. Repeat testing in 2 to 4 weeks may be considered if early infection or incubating syphilis infection is suspected. Performed By: #### 2 341-6 #### QUIN Simon ([id number]) [facility] ([facility]) [address] [place] [address] Urateon 12-23-2024 Urate [Mass/Vol] 2.3 mg/dL Normal 2.3-6.7 [facility] Comment on above: Result Comment: Jessica puncture immediately after or during the administration of Metamizole may lead to falsely low results. Testing should be performed immediately prior to Metamizole dosing. Performed By: #### 3 084-1 #### QUIN Simon ([id number]) [facility] ([facility]) [address] [place] [address] Urate [Mass/Vol]on Interpretation and review of laboratory results Normal [facility] Uric Acidon 12-23-2024 Urate [Mass/Vol] 2.3 mg/dL 2.3 - 6.7 mg/dL [facility] Comment on above: Venipuncture immedia tely after or during the administration of Metamizole may lead to falsely low results. Testing should be performed immediately prior to Metamizole dosing. Urinalysis macro (dipstick) panel (U)on 12-23-2024 Appearance (Body fld) [facility] Bilirubin, UA Negative [facility] Work Phone: [phone] Blood, UA Negative [facility] Work Phone: [phone] Clarity, UA Clear [facility] Work Phone: [phone] Color, UA Light-Yellow [facility] Work Phone: [phone] Glucose, UA 3+ [facility] Work Phone: Interpretation and review of laboratory results Abnormal [facility] Work Phone: Ketones, UA Negative [facility] Work Phone: Leukocytes, UA Negative [facility] Work Phone: [phone] Nitrite, UA Negative [facility] Work Phone: pH, UA 5.5 [facility] Work Phone: Protein, UA Negative [facility] Work Phone: Spec Grav, UA 1.015 [facility] Work Phone: Urobilinogen, UA 0.2 [facility] Work Phone: [facility] Work Phone: Urine Cultureon 12-19-2024 URC Mixed Gram Positive Organisms [place]olph Count 1000-10,000 MIXC Mixed contaminants. Submit a new specimen if indicated. Normal [facility] Comment on above: Performed By: #### M 100.1271 ####[facility] [address] [place], [address] [employer] Office Visit Reporton 12-17-2024 [employer] Office Visit Report Normal [facility] MR/BMS.BPon 12-08-2024 MR/BMS.BP Normal [facility] MR/BMS.BPon 12-03-2024 MR/BMS.BP Normal [facility] Office Visiton 11-25-2024 Follow-up visit [id number] Ari Tinsley 1991 F Date Provider Department Center 11/25/2024 SUGEY GONZALEZ [facility] None Chart Close Cosign Required by: Izabel Whipple MD[[facility]] Family History Problem Relation Age of [...] Alive Paternal Grandmother Alive Level of Service:0500F [place] INITIAL CARE VISIT (,) Reason for Visit and Comments: New Patient [542] - C/o baby being low and it hurts to walk [facility] Progress Noteon 11-25-2024 Progress Note Pt states she feels baby moving [facility] Progress Note ----- ----- Attestation signed by Izabel Whipple MD at 12/10/2024 9:56 AM [facility]: This patient was seen in the [...] to discuss PMHX, OB Hx to update [facility] Chart, should decision be made that she need to delivery with HROB/cMFM and care with [facility]. Patient very hesitent to discuss OB History [...] is donor, [place] [facility], obtained two vials, Home insemination, but potential that this could be ex husbands baby Female infants born ([facility], patient declined signing ROR to this hospital [...] then wanting to discuss birthing options at [facility] Facility: labor: -My fix all for labor is 50mg IV benadryl and IV phenergan, because a thow up fit will cause me to go into labor, discussed that althoug (more content not included)... Normal [facility] MR/BMS.BPon 11-21-2024 MR/BMS.BP Normal [facility] [employer] Office Visit Reporton 11-18-2024 [employer] Office Visit Report Normal [facility] Basic Metabolic Profile (BMP )on 11-13-2024 BUN/CRE 10.9 RATIO Normal 10-20 [facility] Comment on above: Performed By: #### L 501.5200, L500.2500 ####[facility] [address] [place], [address] CA,Total 9.1 mg/dL Normal 8.5-10.1 [facility] Comment on above: Performed By: #### L 501.5200, L500.2500 ####[facility] [address] [place], [address] Chloride [Moles/Vol] 109 mmol/L High 98-107 [facility] Comment on above: Performed By: #### L 501.5200, L500.2500 ####[facility] [address] [place], [address] CO2 [Moles/Vol] 24.0 mmol/L Normal 21.0-32.0 [facility] Comment on above: Performed By: #### L 501.5200, L500.2500 ####[facility] [address] [place], [address] Creatinine [Mass/Vol] 0.55 mg/dL Normal 0.55-1.02 [facility] Comment on above: Result Comment: The validity of the calculated GFR GFRAA in patients over70 years has not been determined. Clinical correlation isessential. Performed By: #### L 501.5200, L500.2500 ####[facility] [address] [place], [address] ECRCL 182.69 ml/min Normal [facility] Comment on above: Performed By: #### L 501.5200, L500.2500 ####[facility] [address] [place], [address] EST GFR - AA 162 mL/min Normal >60 [facility] Comment on above: Result Comment: Afri can [place] GFR Calc Performed By: #### L 501.5200, L500.2500 ####[facility] [address] [place], [address] GAP 4 Low 5-15 [facility] Comment on above: Performed By: #### L 501.5200, L500.2500 ####[facility] [address] [place], [address] GFR/1.73 sq M.predicted among non-blacks MDRD (S/P/Bld) [Vol rate/Area] 134 mL/min/{1.73_m2} Normal >60 [facility] Comment on above: Result Comment: Non- GFR Calc Performed By: #### L 501.5200, L500.2500 ####[facility] [address] [place], [address] Glucose [Mass/Vol] 110 mg/dL High 74-106 [facility] Comment on above: Result Comment: Fast ing Glucose result from 100 to 125 mg/dLsuggests IMPAIRED HOMEOSTASIS per A.D.A. criteria. Performed By: #### L 501.5200, L500.2500 ####[facility] [address] [place], [address] Potassium [Moles/Vol] 3.7 mmol/L Normal 3.5-5.1 [facility] Comment on above: Performed By: #### L 501.5200, L500.2500 ####[facility] [address] [place], [address] Sodium [Moles/Vol] 137 mmol/L Normal 136-145 [facility] Comment on above: Performed By: #### L 501.5200, L500.2500 ####[facility] [address] [place], [address] Urea nitrogen [Mass/Vol] 6 mg/dL Low 7-18 [facility] Comment on above: Performed By: #### L 501.5200, L500.2500 ####[facility] [address] [place], [address] Emergency Department Summary on 11-13-2024 Emergency Department Summary Normal [facility] M100.678on 11-13-2024 M100.678 Pending SARS-CoV-2 (COVID 19) Negative INFLUENZA A Negative INFLUENZA B Negative RSV PCR Negative Normal [facility] Comment on above: Performed By: #### M 100.678, L400.0001 ####[facility] [address] [place], [address] Magnesiumon 11-13-2024 Magnesium [Mass/Vol] 1.8 mg/dL Normal 1.6-2.6 [facility] Comment on above: Performed By: #### L 501.5200, L500.2500 ####[facility] [address] [place], [address] Urinalysis, Completeon 11-13 EPI,SQUAMOUS 0-5 SEEN Normal 5-10 [facility] Comment on above: Order Comment: COLLE CTOR TO SPECIFY Performed By: #### M 100.678, L400.0001 ####[facility] [address] [place], [address] BACTERIA 0 SEEN Normal None Seen [facility] Comment on above: Order Comment: COLLE CTOR TO SPECIFY Performed By: #### M 100.678, L400.0001 ####[facility] [address] [place], [address] Mucus Ql (Urine sed) 0 SEEN Normal [facility] Comment on above: Order Comment: COLLE CTOR TO SPECIFY Performed By: #### M 100.678, L400.0001 ####[facility] [address] [place], [address] RBC 0 SEEN Normal 0-5 [facility] Comment on above: Order Comment: STARR CTOR TO SPECIFY Performed By: #### M 100.678, L400.0001 ####[facility] [address] [place], [address] WBC 0 SEEN Normal 0-5 [facility] Comment on above: Order Comment: STARR CTOR TO SPECIFY Performed By: #### M 100.678, L400.0001 ####[facility] [address] [place], [address] MR/BMS.BPon 10-24-2024 MR/BMS.BP Normal [facility] [employer] Office Visit Reporton 10-24-2024 [employer] Office Visit Report Normal [facility] Urgent Care Visit Reporton 1 12-16-2023 Urgent Care Visit Report Normal [facility] Brain/Head without Contrasto n 10-14-2024 Brain/Head without Contrast Normal [facility] Urgent Care Visit Reporton 1 12-14-2023 Urgent Care Visit Report Normal [facility] Hepatitis B Core Ab Totalon 10-11-2024 HEP B CORE,TOT Negative Normal Negative [facility] Comment on above: Result Comment: Perf ormed at: - [facility] [id number] Director: Waylon Wang PhD, Phone: [phone] Performed By: #### L 509.8000, L3980.0150, L3100.0460, L3890.6100 ####[facility] [address] [place], [address] Hepatitis B Surface Antigeno n 10-10-2024 HEP B Surf Ag Non-Reactive Normal Nonreactive [facility] Comment on above: Performed By: #### L 509.8000, L3890.6300, L3100.0460, L3890.6100 ####[facility] [address] [place], [address] Hepatitis C Antibodyon 10-10 Hepatitis C AB Non-Reactive Normal Nonreactive [facility] Comment on above: Result Comment: Non Reactive: < 0.8 Equivocal: >/= 0.8 to < 1.0 Reactive: >/= 1.0The [facility] requires that a reactive/equivocal HCV antibodyresult be sent out for confirmation. HCV Quant by PCRtesting. Performed By: #### L 509.8000, L3890.6300, L3100.0460, L3890.6100 ####[facility] [address] [place], [place], [address] L509.8000on 10-10-2024 Syphilis Abs Non-Reactive Normal [facility] Comment on above: Performed By: #### L 509.8000, L3890.6300, L3100.0460, L3890.6100 ####[facility] [address] [place], [place], [address] [employer] Office Visit Reporton 10-10-2024 [employer] Office Visit Report Normal [facility] Emergency Department Summary on 10-09-2024 Emergency Department Summary Normal [facility] Office Visit Reporton 2023 Office Visit Report Normal [facility] Anticardiolipin IgG, IgMon 1 11-30-2023 ANTICARDIO IgG < 9 Normal 0-14 [facility] Comment on above: Result Comment: Nega tive: <15 Indeterminate: 15 - 20 Low-Med Positive: >20 - 80 High Positive: >80 Performed By: #### L 4500.2000, L3100.8410, L3410.2000, L4500.5000, L4500.0100 ####[facility] [address] [place], [address] Anticardio.IgM < 9 Normal 0-12 [facility] Comment on above: Result Comment: Nega tive: <13 Indeterminate: 13 - 20 Low-Med Positive: >20 - 80 High Positive: >80 Performed By: #### L 4500.1999, L3100.8410, L3410.2000, L4500.5000, L4500.0100 ####[facility] [address] [place], [address] Beta-2 Glycoprot IgG, A, 09-30-2024 B2 GLYCO I IGA <9 Normal 0-25 [facility] Comment on above: Result Comment: Resu lt Units: GPI IgA unitsThe reference interval reflects a 3SD or 99th percentileinterval, which is thought to represent a potentiallyclinically significant result in accordance with theInternational Consensus Statement on the classificationcriteria for definitive antiphospholipid syndrome (APS). JThromb Haem 2006;4:295-306. Performed By: #### L 4500.1999, L3100.8410, L3410.2000, L4500.5000, L4500.0100 ####[facility] [address] [place], [address] B2 GLYCO I IGG <9 Normal 0-20 [facility] Comment on above: Result Comment: Resu lt Units: GPI IgG unitsThe reference interval reflects a 3SD or 99th percentileinterval, which is thought to represent a potentiallyclinically significant result in accordance with theInternational Consensus Statement on the classificationcriteria for definitive antiphospholipid syndrome (APS). JThromb Haem 2006;4:295-306. Performed By: #### L 4500.1999, L3100.8410, L3410.2000, L4500.5000, L4500.0100 ####[facility] [address] [place], [address] B2 GLYCO I IGM <9 Normal 0-32 [facility] Comment on above: Result Comment: Resu lt Units: GPI IgM unitsThe reference interval reflects a 3SD or 99th percentileinterval, which is thought to represent a potentiallyclinically significant result in accordance with theInternational Consensus Statement on the classificationcriteria for definitive antiphospholipid syndrome (APS). JThromb Haem 2006;4:295-306. Performed By: #### L 4500.1999, L3100.8410, L3410.1999, L4500.5000, L4500.0100 ####[facility] [address] [place], [address] Fact V Leiden Mutationon FACTOR V LEIDEN Comment Normal . [facility] Comment on above: Result Comment: Resu lt: c.1601G>A (p.Uvo820Afw) - Not DetectedThis result is not associated with an increased risk for venousthromboembolism. See Additional Clinical Information andComments.Additional Clinical Information:Venous thromboembolism is a multifactorial diseaseinfluenced by genetic, environmental, and circumstantialrisk factors. The c.1601G>A (p. Aik622Qjq) variant in theF5 gene, commonly referred to [...] F2 c.*97G>Avariant and Factor V Leiden (PMID: 37230457). Additionalrisk factors include but are not limited [...] for health careproviders to discuss results at [phone] (2070).Test Details:Variant Analyzed: c.1601G>A (p. Scn633Nif), referred toas Factor V LeidenMethods/Limitations:DNA analysis of [...] was developed and its performance characteristicsdetermined by [facility]. It has not been cleared orapproved by the Food and Drug Administration.References:Carlos Flanagan, Rosalia GUZMAN, Delonte R, Virgie WW, Nba JH; ACMGProfessional Practice and Guidelines Committee. Addendum:[employer] [place] [employer] consensus statement onfactor V Leiden mutation testing. [employer] Med. 2020Jan 07.doi: 10.1038/[id number]-p. PMID: 80844248.Leah CHAVEZ. Factor V Leiden Thrombophilia. 1998March 18(Updated 2017Nov 08). In: Jarrod MP, Yancy HH, Celso RA,et al., editors. Siobhan(R) (Internet). [place] ([place]):[facility]; 3596-3442. Availablefrom: https://www.ncbi.nlm.nih.gov/books/ZWX1205/Rodney Flanagan, Rosalia GUZMAN, Sumit X, aTm B, Dirk EB, Blank P,Marc CS; ACMG Laboratory Agriculture Research Director Committee.Venous thromboembolism laboratory testing (factor V Leidenand factor II c.*97G>A), 2018 update: a technical standardof the [place] [employer] and Genomics(ACMG). [employer] Med. 2018 Oct;20(12):4233-1652. doi:10.1038/[id number]-w. Epub 2017Aug 09. PMID: 36039818. Performed By: #### L 4500.2000, L3100.8410, L3410.2000, L4500.5000, L4500.0100 ####[facility] [address] [place], [address] Reviewed By Comment Normal . [facility] Comment on above: Result Comment: Tech nical Component performed at [facility] RTPProfessional Component performed by:[facility]. Quin Aguila, Ph.D., FACMGDirector, Molecular Doczjueh81937 [facility] Performed By: #### L 4500.1999, L3100.8410, L3410.1999, L4500.5000, L4500.0100 ####[facility] [address] [place], [address] Factor II, DNA Analysison FACTOR II, DNA Comment Normal . [facility] Comment on above: Result Comment: Resu lt: [...] in theF2 gene and a c.1601G>A (p. Yqh547Mvm) variant in the F5 gene(commonly referred to as Factor V Leiden) have an approximately 20-fold increased risk for venous thromboembolism. Risks are likely laz even higher in more complex genotype combinations involving theF2 c.*97G>A variant and Factor V Leiden (PMID: 97983959). Additionalrisk factors include but are not limited [...] for health care providers to discussresults at [phone] (4814).Test Details:Variant analyzed: c.*97G>A, previously referred to as F00847OLayffob/Limitations:DNA analysis of the F2 gene (NM_000506.5) was [...] was developed and its performance characteristics determinedby [facility]. It has not been cleared or approved by the Food and DrugAdministration.References:Carlos Flanagan, Rosalia GUZMAN, Delonte R, Virgie WW, Nba JH; ACMG ProfessionalPractice and Guidelines Committee. Addendum: [place] [employer] consensus statement on factor V Leiden mutationtesting. [employer] Med. 2020Jan 07. doi: 10.1038/[id number]-n.PMID: 33748357.Leah CHAVEZ. Prothrombin Thrombophilia. 2005May 29[Updated 2020Dec 09]. In: Jarrod MP, Yancy HH, Celso RA, et al.,editors. Siobhan(R) [Internet]. [place] ([place]): [facility]; 4769-8365. Available from:https://www.ncbi.nlm.nih.gov/books/YMO2947/Rodney Flanagan, Rosalia GUZMAN, Sumit X, Tam B, Dirk EB, Blank P, Marc CS;ACMG Laboratory Agriculture Research Director Committee. Venous thromboembolismlaboratory testing (factor V Leiden and factor II c.*97G>A),2018 update: a technical standard of the [place] [employer]Gen[employer] and Genomics (ACMG). [employer] Med. 2018 Oct;20(12):9961-4861.doi: 10.1038/[id number]-z. Epub 2017Aug 09. PMID: 63268131. Performed By: #### L 4500.2000, L3100.8410, L3410.2000, L4500.5000, L4500.0100 ####[facility] [address] [place], [address] Lupus Anticoagulant Compon 11-30-2023 aPTT Coag (Bld) [Time] 31.7 s Normal 0.0-43.5 [facility] Comment on above: Performed By: #### L 4500.2000, L3100.8410, L3410.2000, L4500.5000, L4500.0100 ####[facility] [address] [place], [address] DILUTE PT (dPT) 35.1 sec Normal 0.0-47.6 [facility] Comment on above: Performed By: #### L 4500.2000, L3100.8410, L3410.2000, L4500.5000, L4500.0100 ####[facility] [address] [place], [address] dPT Conf. Ratio 1.13 Ratio Normal 0.00-1.34 [facility] Comment on above: Performed By: #### L 4500.2000, L3100.8410, L3410.2000, L4500.5000, L4500.0100 ####[facility] [address] [place], [address] DRVVT 33.0 sec Normal 0.0-47.0 [facility] Comment on above: Performed By: #### L 4500.2000, L3100.8410, L3410.2000, L4500.5000, L4500.0100 ####[facility] [address] [place], [address] Interpretation Comment: Normal . [facility] Comment on above: Result Comment: No l upus anticoagulant was detected. Performed By: #### L 4500.2000, L3100.8410, L3410.2000, L4500.5000, L4500.0100 ####[facility] [address] [place], [address] THROMBIN TIME 14.7 sec Normal 0.0-23.0 [facility] Comment on above: Performed By: #### L 4500.2000, L3100.8410, L3410.2000, L4500.5000, L4500.0100 ####[facility] [address] [place], [address] Urine Cultureon 09-27-2024 [facility] Mixed Gram Positive Organisms Bardolph Count 11,000-25,000 MIXC Mixed contaminants. Submit a new specimen if indicated. Normal [facility] Comment on above: Performed By: #### M 100.2200 ####[facility] [address] [place], [address] CBC W/Diff, Automatedon 09-06 PLT EST ADEQUATE Normal ADEQ [facility] Comment on above: Performed By: #### B TS, L100.0100, L900.0098, L509.4005, L3890.6300, L500.4050, L501.9985, L509.8000, L3890.6100, L3890.6005 ####[facility] [address] [place], [address] SMEAR COMMENT SCANNED Normal [facility] Comment on above: Performed By: #### B TS, L100.0100, L900.0098, L509.4005, L3890.6300, L500.4050, L501.9985, L509.8000, L3890.6100, L3890.6005 ####[facility] [address] [place], [address] Comprehensive Metabolic Prof ilon 09-25-2024 Albumin [Mass/Vol] 3.5 g/dL Normal 3.2-5.0 [facility] Comment on above: Performed By: #### B TS, L100.0100, L900.0098, L509.4005, L3890.6300, L500.4050, L501.9985, L509.8000, L3890.6100, L3890.6005 ####[facility] [address] [place], [address] Albumin/Globulin [Mass ratio] 0.9 {ratio} Normal 0.9-2.4 [facility] Comment on above: Performed By: #### B TS, L100.0100, L900.0098, L509.4005, L3890.6300, L500.4050, L501.9985, L509.8000, L3890.6100, L3890.6005 ####[facility] [address] [place], [address] ALK P 67 U/L Normal 45-117 [facility] Comment on above: Performed By: #### B TS, L100.0100, L900.0098, L509.4005, L3890.6300, L500.4050, L501.9985, L509.8000, L3890.6100, L3890.6005 ####[facility] [address] [place], [address] ALT [Catalytic activity/Vol] 21 U/L Normal 13-56 [facility] Comment on above: Performed By: #### B TS, L100.0100, L900.0098, L509.4005, L3890.6300, L500.4050, L501.9985, L509.8000, L3890.6100, L3890.6005 ####[facility] [address] [place], [address] AST [Catalytic activity/Vol] 16 U/L Normal 15-37 [facility] Comment on above: Performed By: #### B TS, L100.0100, L900.0098, L509.4005, L3890.6300, L500.4050, L501.9985, L509.8000, L3890.6100, L3890.6005 ####[facility] [address] [place], [address] Bilirubin [Mass/Vol] 0.70 mg/dL Normal 0.20-1.00 [facility] Comment on above: Result Comment: For patients on eltrombopag therapy, use of Dimension Howe TBIL is not recommended. Performed By: #### B TS, L100.0100, L900.0098, L509.4005, L3890.6300, L500.4050, L501.9985, L509.8000, L3890.6100, L3890.6005 ####[facility] [address] [place], [address] BUN/CRE 20.0 RATIO Normal 10-20 [facility] Comment on above: Performed By: #### B TS, L100.0100, L900.0098, L509.4005, L3890.6300, L500.4050, L501.9985, L509.8000, L3890.6100, L3890.6005 ####[facility] [address] [place], [address] CA,Total 9.4 mg/dL Normal 8.5-10.1 [facility] Comment on above: Performed By: #### B TS, L100.0100, L900.0098, L509.4005, L3890.6300, L500.4050, L501.9985, L509.8000, L3890.6100, L3890.6005 ####[facility] [address] [place], [address] Chloride [Moles/Vol] 106 mmol/L Normal 98-107 [facility] Comment on above: Performed By: #### B TS, L100.0100, L900.0098, L509.4005, L3890.6300, L500.4050, L501.9985, L509.8000, L3890.6100, L3890.6005 ####[facility] [address] [place], [address] CO2 [Moles/Vol] 23.0 mmol/L Normal 21.0-32.0 [facility] Comment on above: Performed By: #### B TS, L100.0100, L900.0098, L509.4005, L3890.6300, L500.4050, L501.9985, L509.8000, L3890.6100, L3890.6005 ####[facility] [address] [place], [address] Creatinine [Mass/Vol] 0.65 mg/dL Normal 0.55-1.02 [facility] Comment on above: Result Comment: The validity of the calculated GFR GFRAA in patients over70 years has not been determined. Clinical correlation isessential. Performed By: #### B TS, L100.0100, L900.0098, L509.4005, L3890.6300, L500.4050, L501.9985, L509.8000, L3890.6100, L3890.6005 ####[facility] [address] [place], [address] EST GFR - AA 134 mL/min Normal >60 [facility] Comment on above: Result Comment: Afri can [place] GFR Calc Performed By: #### B TS, L100.0100, L900.0098, L509.4005, L3890.6300, L500.4050, L501.9985, L509.8000, L3890.6100, L3890.6005 ####[facility] [address] [place], [place], [id number]) GAP 7 Normal 5-15 [facility] Comment on above: Performed By: #### B TS, L100.0100, L900.0098, L509.4005, L3890.6300, L500.4050, L501.9985, L509.8000, L3890.6100, L3890.6005 ####[facility] [address] [place], [place], [phone]) GFR/1.73 sq M.predicted among non-blacks MDRD (S/P/Bld) [Vol rate/Area] 111 mL/min/{1.73_m2} Normal >60 [facility] Comment on above: Result Comment: Non- GFR Calc Performed By: #### B TS, L100.0100, L900.0098, L509.4005, L3890.6300, L500.4050, L501.9985, L509.8000, L3890.6100, L3890.6005 ####[facility] [address] [place], [address] Globulin (S) [Mass/Vol] 3.9 g/dL Normal 2.2-4.2 [facility] Comment on above: Performed By: #### B TS, L100.0100, L900.0098, L509.4005, L3890.6300, L500.4050, L501.9985, L509.8000, L3890.6100, L3890.6005 ####[facility] [address] [place], [address] Glucose [Mass/Vol] 93 mg/dL Normal 74-106 [facility] Comment on above: Performed By: #### B TS, L100.0100, L900.0098, L509.4005, L3890.6300, L500.4050, L501.9985, L509.8000, L3890.6100, L3890.6005 ####[facility] [address] [place], [address] Potassium [Moles/Vol] 3.2 mmol/L Low 3.5-5.1 [facility] Comment on above: Performed By: #### B TS, L100.0100, L900.0098, L509.4005, L3890.6300, L500.4050, L501.9985, L509.8000, L3890.6100, L3890.6005 ####[facility] [address] [place], [address] Sodium [Moles/Vol] 137 mmol/L Normal 136-145 [facility] Comment on above: Performed By: #### B TS, L100.0100, L900.0098, L509.4005, L3890.6300, L500.4050, L501.9985, L509.8000, L3890.6100, L3890.6005 ####[facility] [address] [place], [address] T PROT 7.4 g/dL Normal 6.4-8.2 [facility] Comment on above: Performed By: #### B TS, L100.0100, L900.0098, L509.4005, L3890.6300, L500.4050, L501.9985, L509.8000, L3890.6100, L3890.6005 ####[facility] [address] [place], [address] Urea nitrogen [Mass/Vol] 13 mg/dL Normal 7-18 [facility] Comment on above: Performed By: #### B TS, L100.0100, L900.0098, L509.4005, L3890.6300, L500.4050, L501.9985, L509.8000, L3890.6100, L3890.6005 ####[facility] [address] [place], [address] HIV - WCHon 09-25-2024 HIV Non-Reactive Normal Nonreactive [facility] Comment on above: Order Comment: Reaso n for Exam: Performed By: #### B TS, L100.0100, L900.0098, L509.4005, L3890.6300, L500.4050, L501.9985, L509.8000, L3890.6100, L3890.6005 ####[facility] [address] [place], [address] Hemoglobin A1con 09-25-2024 HbA1c (Bld) [Mass fraction] 5.4 % Normal 3.8-5.6 [facility] Comment on above: Result Comment: Norm al < 5.7 % Prediabetic 5.7 - 6.4 % Diabetic >or= 6.5 % Please note range changes. Performed By: #### B TS, L100.0100, L900.0098, L509.4005, L3890.6300, L500.4050, L501.9985, L509.8000, L3890.6100, L3890.6005 ####[facility] [address] [place], [address] Hepatitis B Surface Antigeno n 09-25-2024 HEP B Surf Ag Non-Reactive Normal Nonreactive [facility] Comment on above: Order Comment: Reaso n for Exam: Performed By: #### B TS, L100.0100, L900.0098, L509.4005, L3890.6300, L500.4050, L501.9985, L509.8000, L3890.6100, L3890.6005 ####[facility] [address] [place], [address] Hepatitis C Antibodyon 11-21 -2024 Hepatitis C AB Non-Reactive Normal Nonreactive [facility] Comment on above: Order Comment: Reaso n for Exam: Result Comment: Non Reactive: < 0.8 Equivocal: >/= 0.8 to < 1.0 Reactive: >/= 1.0The [facility] requires that a reactive/equivocal HCV antibodyresult be sent out for confirmation. HCV Quant by PCRtesting. Performed By: #### B TS, L100.0100, L900.0098, L509.4005, L3890.6300, L500.4050, L501.9985, L509.8000, L3890.6100, L3890.6005 ####[facility] [address] [place], [address] L509.8000on 09-25-2024 Syphilis Abs Non-Reactive Normal [facility] Comment on above: Order Comment: Reaso n for Exam: Performed By: #### B TS, L100.0100, L900.0098, L509.4005, L3890.6300, L500.4050, L501.9985, L509.8000, L3890.6100, L3890.6005 ####[facility] [address] [place], [address] NATERAon 09-25-2024 NATURA SEE SCANNED REPORT Normal [facility] Comment on above: Performed By: #### B TS, L100.0100, L900.0098, L509.4005, L3890.6300, L500.4050, L501.9985, L509.8000, L3890.6100, L3890.6005 ####[facility] [address] [place], [address] [employer] Office Visit Reporton 09-25-2024 [employer] Agent Office Visit Report Normal [facility] Rubella IgGon 09-25-2024 Rubella IgG Reactive Normal Nonreactive [facility] Comment on above: Order Comment: Reaso n for Exam: Result Comment: Anti body Results Interpretation of Immune Status Non Reactive Presumed Non-Immune Equivocal Equivocal Reactive Presumed Immune Performed By: #### B TS, L100.0100, L900.0098, L509.4005, L3890.6300, L500.4050, L501.9985, L509.8000, L3890.6100, L3890.6005 ####[facility] [address] [place], [address] Type AND Screenon 09-25-2024 Ab SCREEN GEL Negative Normal [facility] Comment on above: Order Comment: PN Performed By: #### B TS, L100.0100, L900.0098, L509.4005, L3890.6300, L500.4050, L501.9985, L509.8000, L3890.6100, L3890.6005 ####[facility] [address] [place], [place], [address] PAP IG HPV APTIMA 16/18,45on 09-10-2024 ADEQ Comment Normal . [facility] Comment on above: Order Comment: Speci men Comment: [id number] Comment: Source.............CervixSpecimen Comment: Other..............Specimen Comment: No. of containers..01 ThinPrep Vial Result Comment: Sati sfactory for evaluation. Endocervical and/or squamous metaplasticcells (endocervical component) are present. Performed By: #### L 7400.0280 ####[facility] [address] [place], [place], [address] COMM . Normal . [facility] Comment on above: Order Comment: Speci men Comment: [id number] Comment: Source.............CervixSpecimen Comment: Other..............Specimen Comment: No. of containers..01 ThinPrep Vial Performed By: #### L 7400.0280 ####[facility] [address] [place], [place], [address] COMMENT Comment Normal . [facility] Comment on above: Order Comment: Speci men Comment: [id number] Comment: Source.............CervixSpecimen Comment: Other..............Specimen Comment: No. of containers..01 ThinPrep Vial Result Comment: This liquid based ThinPrep(R) pap test was screened withthe use of an image guided system. Performed By: #### L 7400.0280 ####[facility] [address] [place], [place], [address] DIAG Comment Normal . [facility] Comment on above: Order Comment: Speci men Comment: [id number] Comment: Source.............CervixSpecimen Comment: Other..............Specimen Comment: No. of containers..01 ThinPrep Vial Result Comment: NEGA TIVE FOR INTRAEPITHELIAL LESION OR MALIGNANCY. Performed By: #### L 7400.0280 ####[facility] [address] [place], [place], [address] HPV APTIMA, HR Negative Normal Negative [facility] Comment on above: Order Comment: Speci men Comment: [id number] Comment: Source.............CervixSpecimen Comment: Other..............Specimen Comment: No. of containers..01 ThinPrep Vial Result Comment: This nucleic acid amplification test detects fourteen high-risk HPV types (16,18,31,33,35,39,45,51,52,56,58,59,66,68)without differentiation. Performed By: #### L 7400.0280 ####[facility] [address] [place], [place], [address] HPV Ifrah Rfx Comment Normal . [facility] Comment on above: Order Comment: Speci men Comment: [id number] Comment: Source.............CervixSpecimen Comment: Other..............Specimen Comment: No. of containers..01 ThinPrep Vial Result Comment: Crit eria not met, HPV Genotype not performed.Performed at: - [facility] [address] [id number] Director: Ene Gray MD, Phone: [phone] at: = - [facility] [address] [id number] Director: Ene Gray MD, Phone: [phone] Performed By: #### L 7400.0280 ####[facility] [address] [place], [place], [address] PAPSMR Comment Normal . [facility] Comment on above: Order Comment: Speci men Comment: [id number] Comment: Source.............CervixSpecimen Comment: Other..............Specimen Comment: No. of containers..01 ThinPrep Vial Result Comment: The Pap smear is a screening test designed to aid in thedetection of premalignant and malignant conditions of theuterine cervix. It is not a diagnostic procedure andshould not be used as the sole means of detecting cervicalcancer. Both false-positive and false-negative reports dooccur. Performed By: #### L 7400.0280 ####[facility] [address] [place], [place], [address] PERFORM Comment Normal . [facility] Comment on above: Order Comment: Speci men Comment: [id number] Comment: Source.............CervixSpecimen Comment: Other..............Specimen Comment: No. of containers..01 ThinPrep Vial Result Comment: Nina Bhakta, Water Ski Assembler (ASCP) Performed By: #### L 7400.0280 ####[facility] [address], [address] Chlamydia/GC JYOTI aptimaon CHLAMY,NUC ACID Negative Normal Negative [facility] Comment on above: Performed By: #### L 501.0900, L7000.1800, M100.2200 ####[facility] [address] [place], [address] GC BY NUC ACID Negative Normal Negative [facility] Comment on above: Result Comment: Perf ormed at: =G - [facility] [address] [id number] Director: Ene Gray MD, Phone: [phone] Performed By: #### L 501.0900, L7000.1800, M100.2200 ####[facility] [address] [place], [address] Urine Cultureon 09-04-2024 [facility] Mixed Gram Positive Organisms Bardolph Count 50,000-80,000 [facility] Mixed contaminants. Submit a new specimen if indicated. Normal [facility] Comment on above: Performed By: #### L 501.0900, L7000.1800, M100.2200 ####[facility] [address] [place], [address] [employer] Office Visit Reporton 09-02-2024 [employer] Office Visit Report Normal [facility] Protein+Creatinine Ratio,Uri neon 09-02-2024 PROT:CRE RATIO 162 mg/g CRE Normal 0-200 [facility] Comment on above: Performed By: #### L 501.0900, L7000.1800, M100.2200 ####[facility] [address] [place], [address] Protein (U) [Mass/Vol] 15.5 mg/dL High <11.9 [facility] Comment on above: Performed By: #### L 501.0900, L7000.1800, M100.2200 ####[facility] [address] [place], [address] UR CREAT 95.60 mg/dL Normal NO RANGE EST. [facility] Comment on above: Performed By: #### L 501.0900, L7000.1800, M100.2200 ####[facility] [address] [place], [address] Office Visit Reporton 2023 Office Visit Report Normal [facility] Office Visit Reporton 2023 Office Visit Report Normal [facility] Basic Metabolic Profile (BMP )on 08-06-2024 BUN/CRE 10.5 RATIO Normal 10-20 [facility] Comment on above: Performed By: #### L 100.0100, L500.3400, L500.2500, L700.8000 ####[facility] [address] [place], [address] CA,Total 9.3 mg/dL Normal 8.5-10.1 [facility] Comment on above: Performed By: #### L 100.0100, L500.3400, L500.2500, L700.8000 ####[facility] [address] [place], [address] Chloride [Moles/Vol] 109 mmol/L High 98-107 [facility] Comment on above: Performed By: #### L 100.0100, L500.3400, L500.2500, L700.8000 ####[facility] [address] [place], [address] CO2 [Moles/Vol] 26.0 mmol/L Normal 21.0-32.0 [facility] Comment on above: Performed By: #### L 100.0100, L500.3400, L500.2500, L700.8000 ####[facility] [address] [place], [address] Creatinine [Mass/Vol] 0.67 mg/dL Normal 0.55-1.02 [facility] Comment on above: Result Comment: The validity of the calculated GFR GFRAA in patients over70 years has not been determined. Clinical correlation isessential. Performed By: #### L 100.0100, L500.3400, L500.2500, L700.8000 ####[facility] [address] [place], [address] ECRCL 136.76 ml/min Normal [facility] Comment on above: Performed By: #### L 100.0100, L500.3400, L500.2500, L700.8000 ####[facility] [address] [place], [address] EST GFR - AA 130 mL/min Normal >60 [facility] Comment on above: Result Comment: Afri can [place] GFR Calc Performed By: #### L 100.0100, L500.3400, L500.2500, L700.8000 ####[facility] [address] [place], [address] GAP 4 Low 5-15 [facility] Comment on above: Performed By: #### L 100.0100, L500.3400, L500.2500, L700.8000 ####[facility] [address] [place], [address] GFR/1.73 sq M.predicted among non-blacks MDRD (S/P/Bld) [Vol rate/Area] 107 mL/min/{1.73_m2} Normal >60 [facility] Comment on above: Result Comment: Non- GFR Calc Performed By: #### L 100.0100, L500.3400, L500.2500, L700.8000 ####[facility] [address] [place], [address] Glucose [Mass/Vol] 101 mg/dL Normal 74-106 [facility] Comment on above: Result Comment: Fast ing Glucose result from 100 to 125 mg/dLsuggests IMPAIRED HOMEOSTASIS per A.D.A. criteria. Performed By: #### L 100.0100, L500.3400, L500.2500, L700.8000 ####[facility] [address] [place], [address] Potassium [Moles/Vol] 4.0 mmol/L Normal 3.5-5.1 [facility] Comment on above: Result Comment: Slig ht Hemolysis, Result may be falsely increased. Performed By: #### L 100.0100, L500.3400, L500.2500, L700.8000 ####[facility] [address] [place], [address] Sodium [Moles/Vol] 139 mmol/L Normal 136-145 [facility] Comment on above: Performed By: #### L 100.0100, L500.3400, L500.2500, L700.8000 ####[facility] [address] [place], [address] Urea nitrogen [Mass/Vol] 7 mg/dL Normal 7-18 [facility] Comment on above: Performed By: #### L 100.0100, L500.3400, L500.2500, L700.8000 ####[facility] [address] [place], [address] CBC W/Diff, Automatedon 10-0 2-2023 Absolute Lymph 2.80 X10 3/uL Normal 0.83-4.51 [facility] Comment on above: Performed By: #### L 100.0100, L500.3400, L500.2500, L700.8000 ####[facility] [address] [place], [address] Absolute Neut 6.7 X10 3/uL Normal 2.0-7.7 [facility] Comment on above: Performed By: #### L 100.0100, L500.3400, L500.2500, L700.8000 ####[facility] [address] [place], [address] Basophils/100 WBC (Bld) 0.5 % Normal 0-1 [facility] Comment on above: Performed By: #### L 100.0100, L500.3400, L500.2500, L700.8000 ####[facility] [address] [place], [address] Eosinophils/100 WBC (Bld) 0.0 % Normal 0-5 [facility] Comment on above: Performed By: #### L 100.0100, L500.3400, L500.2500, L700.8000 ####[facility] [address] [place], [address] Erythrocyte distribution width (RBC) [Ratio] 12.9 % Normal 11.6-14.6 [facility] Comment on above: Performed By: #### L 100.0100, L500.3400, L500.2500, L700.8000 ####[facility] [address] [place], [address] Hematocrit (Bld) [Volume fraction] 38.6 % Normal 37-47 [facility] Comment on above: Performed By: #### L 100.0100, L500.3400, L500.2500, L700.8000 ####[facility] [address] [place], [address] Hemoglobin (Bld) [Mass/Vol] 12.6 g/dL Normal 12.0-15.0 [facility] Comment on above: Performed By: #### L 100.0100, L500.3400, L500.2500, L700.8000 ####[facility] [address] [place], [address] IG% 0.500 Normal 0.0-0.9 [facility] Comment on above: Result Comment: IG% - Immature Granulocytes (promyelocytes, myelocytes andmetamyelocytes) > 1% indicates that a LEFT SHIFT is Present. Performed By: #### L 100.0100, L500.3400, L500.2500, L700.8000 ####[facility] [address] [place], [address] Lymphocytes/100 WBC (Bld) 28.0 % Normal 19-41 [facility] Comment on above: Performed By: #### L 100.0100, L500.3400, L500.2500, L700.8000 ####[facility] [address] [place], [address] MCH (RBC) [Entitic mass] 29.4 pg Normal 27.0-32.0 [facility] Comment on above: Performed By: #### L 100.0100, L500.3400, L500.2500, L700.8000 ####[facility] [address] [place], [address] MCHC (RBC) [Mass/Vol] 32.6 g/dL Normal 32-36 [facility] Comment on above: Performed By: #### L 100.0100, L500.3400, L500.2500, L700.8000 ####[facility] [address] [place], [address] MCV (RBC) [Entitic vol] 90.0 fL Normal 81-99 [facility] Comment on above: Performed By: #### L 100.0100, L500.3400, L500.2500, L700.8000 ####[facility] [address] [place], [address] Monocytes/100 WBC (Bld) 4.5 % Normal 0-10 [facility] Comment on above: Performed By: #### L 100.0100, L500.3400, L500.2500, L700.8000 ####[facility] [address] [place], [address] Neutrophils/100 WBC (Bld) 66.5 % Normal 47-70 [facility] Comment on above: Performed By: #### L 100.0100, L500.3400, L500.2500, L700.8000 ####[facility] [address] [place], [address] Nucleated RBC (Bld) [#/Vol] 0 10*3/uL Normal 0-5 [facility] Comment on above: Performed By: #### L 100.0100, L500.3400, L500.2500, L700.8000 ####[facility] [address] [place], [address] Platelet mean volume (Bld) [Entitic vol] 10.6 fL Normal 6.2-12.0 [facility] Comment on above: Performed By: #### L 100.0100, L500.3400, L500.2500, L700.8000 ####[facility] [address] [place], [address] Platelets (Bld) [#/Vol] 298 10*3/uL Normal 150-450 [facility] Comment on above: Performed By: #### L 100.0100, L500.3400, L500.2500, L700.8000 ####[facility] [address] [place], [address] RBC (Bld) [#/Vol] 4.29 10*6/uL Normal 4.2-5.4 [facility] Comment on above: Performed By: #### L 100.0100, L500.3400, L500.2500, L700.8000 ####[facility] [address] [place], [address] RDW SD 41.9 fl Normal 35.1-43.9 [facility] Comment on above: Performed By: #### L 100.0100, L500.3400, L500.2500, L700.8000 ####[facility] [address] [place], [address] WBC (Bld) [#/Vol] 10.0 10*3/uL Normal 4.4-11.0 [facility] Comment on above: Performed By: #### L 100.0100, L500.3400, L500.2500, L700.8000 ####[facility] [address] [place], [address] Emergency Department Summary on 08-06-2024 Emergency Department Summary Normal [facility] Liver Profileon 08-06-2024 Albumin [Mass/Vol] 3.7 g/dL Normal 3.2-5.0 [facility] Comment on above: Performed By: #### L 100.0100, L500.3400, L500.2500, L700.8000 ####[facility] [address] [place], [address] ALK P 62 U/L Normal 45-117 [facility] Comment on above: Performed By: #### L 100.0100, L500.3400, L500.2500, L700.8000 ####[facility] [address] [place], [address] ALT [Catalytic activity/Vol] 20 U/L Normal 13-56 [facility] Comment on above: Performed By: #### L 100.0100, L500.3400, L500.2500, L700.8000 ####[facility] [address] [place], [address] AST [Catalytic activity/Vol] 19 U/L Normal 15-37 [facility] Comment on above: Result Comment: Slig ht Hemolysis, Result may be falsely increased. Performed By: #### L 100.0100, L500.3400, L500.2500, L700.8000 ####[facility] [address] [place], [address] Bilirubin [Mass/Vol] 0.50 mg/dL Normal 0.20-1.00 [facility] Comment on above: Result Comment: For patients on eltrombopag therapy, use of Dimension Howe TBIL is not recommended. Performed By: #### L 100.0100, L500.3400, L500.2500, L700.8000 ####[facility] [address] [place], [address] Bilirubin.direct [Mass/Vol] 0.15 mg/dL Normal 0.00-0.30 [facility] Comment on above: Performed By: #### L 100.0100, L500.3400, L500.2500, L700.8000 ####[facility] [address] [place], [address] Globulin (S) [Mass/Vol] 3.7 g/dL Normal 2.2-4.2 [facility] Comment on above: Performed By: #### L 100.0100, L500.3400, L500.2500, L700.8000 ####[facility] [address] [place], [address] T PROT 7.4 g/dL Normal 6.4-8.2 [facility] Comment on above: Performed By: #### L 100.0100, L500.3400, L500.2500, L700.8000 ####[facility] [address] [place], [address] Transvaginal w/Preg USon Transvaginal w/Preg US Normal [facility] hCG Titer Quant., Serumon HCG QUANT. 3737 mIU/mL High 1-3 [facility] Comment on above: Result Comment: hCG levels with Gestational AgeGestational Age hCG mIU/mL (IU/L)0.2 - 1 week 5 - 501-2 weeks 50 - 5002-3 weeks 100 - 11698-1 weeks 500 - 895857-3 weeks 1000 - 795154-0 weeks 55600 - 100,0006-8 weeks 43786 - 200,0002-3 months 63062 - 100,000 Performed By: #### L 100.0100, L500.3400, L500.2500, L700.8000 ####[facility] [address] [place], [address] Emergency Department Summary on 06-30-2024 Emergency Department Summary Normal [facility] [id number] 06-11-2024 ABO and Rh group Nom (Bld) Blood group O Rh(D) positive Normal [facility] Comment on above: Performed By: #### L 700.8000, L100.0100, B882-1 ####[facility] [address] [place], [address] CBC W/Diff, Automatedon 08 Absolute Lymph 3.77 X10 3/uL Normal 0.83-4.51 [facility] Comment on above: Performed By: #### L 700.8000, L100.0100, B882-1 ####[facility] [address] [place], [address] Absolute Neut 5.2 X10 3/uL Normal 2.0-7.7 [facility] Comment on above: Performed By: #### L 700.8000, L100.0100, B882-1 ####[facility] [address] [place], [address] Basophils/100 WBC (Bld) 0.5 % Normal 0-1 [facility] Comment on above: Performed By: #### L 700.8000, L100.0100, B882-1 ####[facility] [address] [place], [address] Eosinophils/100 WBC (Bld) 2.7 % Normal 0-5 [facility] Comment on above: Performed By: #### L 700.8000, L100.0100, B882-1 ####[facility] [address] [place], [address] Erythrocyte distribution width (RBC) [Ratio] 12.6 % Normal 11.6-14.6 [facility] Comment on above: Performed By: #### L 700.8000, L100.0100, B882-1 ####[facility] [address] [place], [address] Hematocrit (Bld) [Volume fraction] 40.7 % Normal 37-47 [facility] Comment on above: Performed By: #### L 700.8000, L100.0100, B882-1 ####[facility] [address] [place], [address] Hemoglobin (Bld) [Mass/Vol] 13.0 g/dL Normal 12.0-15.0 [facility] Comment on above: Performed By: #### L 700.8000, L100.0100, B882-1 ####[facility] [address] [place], [address] IG% 0.300 Normal 0.0-0.9 [facility] Comment on above: Result Comment: IG% - Immature Granulocytes (promyelocytes, myelocytes andmetamyelocytes) > 1% indicates that a LEFT SHIFT is Present. Performed By: #### L 700.8000, L100.0100, B882-1 ####[facility] [address] [place], [address] Lymphocytes/100 WBC (Bld) 38.2 % Normal 19-41 [facility] Comment on above: Performed By: #### L 700.8000, L100.0100, B882-1 ####[facility] [address] [place], [address] MCH (RBC) [Entitic mass] 28.7 pg Normal 27.0-32.0 [facility] Comment on above: Performed By: #### L 700.8000, L100.0100, B882-1 ####[facility] [address] [place], [address] MCHC (RBC) [Mass/Vol] 31.9 g/dL Low 32-36 [facility] Comment on above: Performed By: #### L 700.8000, L100.0100, B882-1 ####[facility] [address] [place], [address] MCV (RBC) [Entitic vol] 89.8 fL Normal 81-99 [facility] Comment on above: Performed By: #### L 700.8000, L100.0100, B882-1 ####[facility] [address] [place], [address] Monocytes/100 WBC (Bld) 5.6 % Normal 0-10 [facility] Comment on above: Performed By: #### L 700.8000, L100.0100, B882-1 ####[facility] [address] [place], [address] Neutrophils/100 WBC (Bld) 52.7 % Normal 47-70 [facility] Comment on above: Performed By: #### L 700.8000, L100.0100, B882-1 ####[facility] [address] [place], [address] Nucleated RBC (Bld) [#/Vol] 0 10*3/uL Normal 0-5 [facility] Comment on above: Performed By: #### L 700.8000, L100.0100, B882-1 ####[facility] [address] [place], [address] Platelet mean volume (Bld) [Entitic vol] 11.0 fL Normal 6.2-12.0 [facility] Comment on above: Performed By: #### L 700.8000, L100.0100, B882-1 ####[facility] [address] [place], [address] Platelets (Bld) [#/Vol] 204 10*3/uL Normal 150-450 [facility] Comment on above: Performed By: #### L 700.8000, L100.0100, B882-1 ####[facility] [address] [place], [address] RBC (Bld) [#/Vol] 4.53 10*6/uL Normal 4.2-5.4 [facility] Comment on above: Performed By: #### L 700.8000, L100.0100, B882-1 ####[facility] [address] [place], [address] RDW SD 41.5 fl Normal 35.1-43.9 [facility] Comment on above: Performed By: #### L 700.8000, L100.0100, B882-1 ####[facility] [address] [place], [address] WBC (Bld) [#/Vol] 9.9 10*3/uL Normal 4.4-11.0 [facility] Comment on above: Performed By: #### L 700.8000, L100.0100, B882-1 ####[facility] [address] [place], [address] Comprehensive Metabolic Prof ilon 06-11-2024 Albumin [Mass/Vol] 4.1 g/dL Normal 3.2-5.0 [facility] Comment on above: Performed By: #### L 500.4050 ####[facility] [address] [place], [address] Albumin/Globulin [Mass ratio] 1.2 {ratio} Normal 0.9-2.4 [facility] Comment on above: Performed By: #### L 500.4050 ####[facility] [address] [place], [address] ALK P 64 U/L Normal 45-117 [facility] Comment on above: Performed By: #### L 500.4050 ####[facility] [address] [place], [address] ALT [Catalytic activity/Vol] 24 U/L Normal 13-56 [facility] Comment on above: Performed By: #### L 500.4050 ####[facility] [address] [place], [address] AST [Catalytic activity/Vol] 22 U/L Normal 15-37 [facility] Comment on above: Result Comment: Slig ht Hemolysis, Result may be falsely increased. Performed By: #### L 500.4050 ####[facility] [address] [place], [address] Bilirubin [Mass/Vol] 1.00 mg/dL Normal 0.20-1.00 [facility] Comment on above: Result Comment: For patients on eltrombopag therapy, use of Dimension Howe TBIL is not recommended. Performed By: #### L 500.4050 ####[facility] [address] [place], [address] BUN/CRE 12.0 RATIO Normal 10-20 [facility] Comment on above: Performed By: #### L 500.4050 ####[facility] [address] [place], [address] CA,Total 9.0 mg/dL Normal 8.5-10.1 [facility] Comment on above: Performed By: #### L 500.4050 ####[facility] [address] [place], [address] Chloride [Moles/Vol] 108 mmol/L High 98-107 [facility] Comment on above: Performed By: #### L 500.4050 ####[facility] [address] [place], [address] CO2 [Moles/Vol] 26.0 mmol/L Normal 21.0-32.0 [facility] Comment on above: Performed By: #### L 500.4050 ####[facility] [address] [place], [address] Creatinine [Mass/Vol] 0.66 mg/dL Normal 0.55-1.02 [facility] Comment on above: Result Comment: The validity of the calculated GFR GFRAA in patients over70 years has not been determined. Clinical correlation isessential. Performed By: #### L 500.4050 ####[facility] [address] [place], [address] ECRCL 139.08 ml/min Normal [facility] Comment on above: Performed By: #### L 500.4050 ####[facility] [address] [place], [address] EST GFR - AA 131 mL/min Normal >60 [facility] Comment on above: Result Comment: Afri can [place] GFR Calc Performed By: #### L 500.4050 ####[facility] [address] [place], [address] GAP 7 Normal 5-15 [facility] Comment on above: Performed By: #### L 500.4050 ####[facility] [address] [place], [address] GFR/1.73 sq M.predicted among non-blacks MDRD (S/P/Bld) [Vol rate/Area] 108 mL/min/{1.73_m2} Normal >60 [facility] Comment on above: Result Comment: Non- GFR Calc Performed By: #### L 500.4050 ####[facility] [address] [place], [address] Globulin (S) [Mass/Vol] 3.5 g/dL Normal 2.2-4.2 [facility] Comment on above: Performed By: #### L 500.4050 ####[facility] [address] [place], [address] Glucose [Mass/Vol] 79 mg/dL Normal 74-106 [facility] Comment on above: Performed By: #### L 500.4050 ####[facility] [address] [place], [address] Potassium [Moles/Vol] 3.9 mmol/L Normal 3.5-5.1 [facility] Comment on above: Result Comment: Slig ht Hemolysis, Result may be falsely increased. Performed By: #### L 500.4050 ####[facility] [address] [place], [address] Sodium [Moles/Vol] 141 mmol/L Normal 136-145 [facility] Comment on above: Performed By: #### L 500.4050 ####[facility] [address] [place], [address] T PROT 7.6 g/dL Normal 6.4-8.2 [facility] Comment on above: Performed By: #### L 500.4050 ####[facility] [address] [place], [address] Urea nitrogen [Mass/Vol] 8 mg/dL Normal 7-18 [facility] Comment on above: Performed By: #### L 500.4050 ####[facility] [address] [place], [address] Emergency Department Summary on 06-11-2024 Emergency Department Summary Normal [facility] ,Serum,hCG Quali.on 06-11-2024 HCG, SERUM QUAL Normal [facility] Comment on above: Result Comment: Blayne elled via OM: Ordered Performed By: #### L 700.6800 ####[facility] [address] [place], [address] INTERNAL QC OK? Normal [facility] Comment on above: Result Comment: Blayne elled via OM: MD Ordered Performed By: #### L 700.6800 ####[facility] [address] [place], [address] RECORD KIT LOT# Normal [facility] Comment on above: Result Comment: Blayne elled via OM: MD Ordered Performed By: #### L 700.6800 ####[facility] [address] [place], [address] Urinalysis, Completeon 06-11 EPI,SQUAMOUS 0-5 SEEN Normal 5-10 [facility] Comment on above: Order Comment: CLEAN CATCH Performed By: #### L 400.0001 ####[facility] [address] [place], [address] WBC 0-5 SEEN Normal 0-5 [facility] Comment on above: Order Comment: CLEAN CATCH Performed By: #### L 400.0001 ####[facility] [address] [place], [address] BACTERIA 0 SEEN Normal None Seen [facility] Comment on above: Order Comment: CLEAN CATCH Performed By: #### L 400.0001 ####[facility] [address] [place], [address] Mucus Ql (Urine sed) 0 SEEN Normal [facility] Comment on above: Order Comment: CLEAN CATCH Performed By: #### L 400.0001 ####[facility] [address] [place], [address] RBC 0 SEEN Normal 0-5 [facility] Comment on above: Order Comment: CLEAN CATCH Performed By: #### L 400.0001 ####[facility] [address] [place], [address] hCG Titer Quant., Serumon HCG QUANT. < 1 Normal 1-3 [facility] Comment on above: Result Comment: hCG levels with Gestational AgeGestational Age hCG mIU/mL (IU/L)0.2 - 1 week 5 - 501-2 weeks 50 - 5002-3 weeks 100 - 58113-2 weeks 500 - 421576-3 weeks 1000 - 976739-0 weeks 27892 - 100,0006-8 weeks 92277 - 200,0002-3 months 65263 - 100,000 Performed By: #### L 700.8000, L100.0100, B882-1 ####[facility] [address] [place], [address] Absolute lymphocyte countOrd ered By: Jagjit Ortega on 03-03-2024 Lymphocytes Auto (Unsp spec) [#/Vol] 2.70 10*3/uL 0.83-4.51 [facility] Automated lymphocyte count a s percentage of total leukocytesOrdered By: Jagjit Ortega on 03-03-2024 Lymphocytes/100 WBC Auto (Unsp spec) 30.4 % 19-41 [facility] Basophil percentageOrdered B y: Jagjit Ortega on 03-03-2024 Basophils/100 WBC (Bld) 0.6 % 0-1 [facility] Chloride [Moles/Vol] 111 mmol/L 98-107 [facility] Eosinophils/100 WBC (Bld) 0.0 % 0-5 [facility] Glucose [Mass/Vol] 100 mg/dL 74-106 [facility] Comment on above: Fasting Glucose resu lt from 100 to 125 mg/dL suggests IMPAIRED HOMEOSTASIS per A.D.A. criteria. Hemoglobin (Bld) [Mass/Vol] 13.1 g/dL 12.0-15.0 [facility] Monocytes/100 WBC (Bld) 5.6 % 0-10 [facility] Neutrophils (Bld) [#/Vol] 5.6 10*3/uL 2.0-7.7 [facility] Neutrophils/100 WBC (Bld) 63.2 % 47-70 [facility] Potassium [Moles/Vol] 3.2 mmol/L 3.5-5.1 [facility] Sodium [Moles/Vol] 142 mmol/L 136-145 [facility] WBC (Bld) [#/Vol] 8.9 10*3/uL 4.4-11.0 [facility] Blood platelet adequacy dete ction by light microscopyOrdered By: Jagjit Ortega on 03-03-2024 Platelets LM Ql (Bld) ADEQUATE ADEQ [facility] Determination of erythrocyte mean corpuscular volume (MCV)Ordered By: Jagjit Ortega on 03-03-2024 MCV (RBC) [Entitic vol] 87.9 fL 81-99 [facility] Erythrocyte distribution wid th ratioOrdered By: Jagjit Ortega on 03-03-2024 Erythrocyte distribution width (RBC) [Ratio] 13.0 % 11.6-14.6 [facility] Erythrocyte distribution wid th standard deviationOrdered By: Jagjit Ortega on 03-03-2024 Erythrocyte distribution width (RBC) [Entitic vol] 41.3 fL 35.1-43.9 [facility] Hematocrit Auto (Bld) [Volum e fraction]Ordered By: Jagjit Ortega on 03-03-2024 Hematocrit (Bld) [Volume fraction] 39.4 % 37-47 [facility] Immature granulocytes/100 WB C Auto (Bld)Ordered By: Jagjit Ortega on 03-03-2024 Immature granulocytes/100 WBC (Bld) 0.200 % 0.0-0.9 [facility] Comment on above: IG% - Immature Granu locytes (promyelocytes, myelocytes and metamyelocytes) > 1% indicates that a LEFT SHIFT is Present. Laboratory - Chemistry and C hemistry - challengeOrdered By: Jagjit Ortega on 03-03-2024 CO2 [Moles/Vol] 27.0 mmol/L 21.0-32.0 [facility] Urea nitrogen/Creatinine [Mass ratio] 8.7 mg/mg 10-20 [facility] Laboratory - Hematology and Cell countsOrdered By: Jagjit Ortega on 03-03-2024 MCH (RBC) [Entitic mass] 29.2 pg 27.0-32.0 [facility] MCHC (RBC) [Mass/Vol] 33.2 g/dL 32-36 [facility] Nucleated RBC/100 WBC (Bld) [Ratio] 0 % 0-5 [facility] Platelet mean volume (Bld) [Entitic vol] 11.5 fL 6.2-12.0 [facility] No Panel InformationOrdered By: Jagjit Ortega on 03-03-2024 Estimated GFR (MDRD) Amer 104 mL/min >60 [facility] Comment on above: GFR Calc Estimated GFR (MDRD) Non-Af Amer 86 mL/min >60 [facility] Comment on above: Non- GFR Calc Platelet Count TNP [facility] Comment on above: Test not performedPl ease [...] 03-03-2024 RBC (Bld) [#/Vol] 4.48 10*6/uL 4.2-5.4 [facility] Serum or plasma calcium omega urement (mass/volume)Ordered By: Jagjit Ortega on 03-03-2024 Calcium [Mass/Vol] 9.0 mg/dL 8.5-10.1 [facility] Serum or plasma creatinine m easurement (mass/volume)Ordered By: Jagjit Ortega on 03-03-2024 Creatinine [Mass/Vol] 0.81 mg/dL 0.55-1.02 [facility] Comment on above: The validity of the calculated GFR & GFRAA in patients over 70 years has not been determined. Clinical correlation is essential. Serum or plasma urea nitroge n measurement (mass/volume)Ordered By: Jagjit Ortega on 03-03-2024 Urea nitrogen [Mass/Vol] 7 mg/dL 7-18 [facility] Thin prep Papanicolaou smear with manual screeningOrdered By: Jagjit Ortega on 03-03-2024 Thin prep Papanicolaou smear with manual screening 4 5-15 [facility] Absolute lymphocyte countOrd ered By: Nito Lynnjeremias on 02-22-2024 Lymphocytes Auto (Unsp spec) [#/Vol] 3.30 10*3/uL 0.83-4.51 [facility] Automated lymphocyte count a s percentage of total leukocytesOrdered By: Nito Lynnjeremias on 02-22-2024 Lymphocytes/100 WBC Auto (Unsp spec) 27.5 % 19-41 [facility] Basophil percentageOrdered B y: Nito Nur on 02-22-2024 Basophil percentage 0-5 SEEN /hpf 0-5 [facility] Basophils/100 WBC (Bld) 0.5 % 0-1 [facility] Bilirubin [Mass/Vol] 0.80 mg/dL 0.20-1.00 [facility] Comment on above: For patients on eltr ombopag therapy, use of Dimension Howe TBIL is not recommended. Chloride [Moles/Vol] 110 mmol/L 98-107 [facility] Eosinophils/100 WBC (Bld) 0.0 % 0-5 [facility] Glucose [Mass/Vol] 85 mg/dL 74-106 [facility] Hemoglobin (Bld) [Mass/Vol] 13.7 g/dL 12.0-15.0 [facility] Monocytes/100 WBC (Bld) 6.2 % 0-10 [facility] Neutrophils (Bld) [#/Vol] 7.9 10*3/uL 2.0-7.7 [facility] Neutrophils/100 WBC (Bld) 65.4 % 47-70 [facility] Potassium [Moles/Vol] 2.9 mmol/L 3.5-5.1 [facility] Protein [Mass/Vol] 8.0 g/dL 6.4-8.2 [facility] Sodium [Moles/Vol] 140 mmol/L 136-145 [facility] WBC (Bld) [#/Vol] 12.0 10*3/uL 4.4-11.0 [facility] Bilirubin Test strip Ql (U)O rdered By: Nito Nur on 02-22-2024 Bilirubin Ql (U) Negative Negative [facility] Determination of erythrocyte mean corpuscular volume (MCV)Ordered By: Nito Nur on 02-22-2024 MCV (RBC) [Entitic vol] 87.2 fL 81-99 [facility] Erythrocyte distribution wid th ratioOrdered By: Nito Nur on 02-22-2024 Erythrocyte distribution width (RBC) [Ratio] 13.0 % 11.6-14.6 [facility] Erythrocyte distribution wid th standard deviationOrdered By: Nito Nur on 02-22-2024 Erythrocyte distribution width (RBC) [Entitic vol] 40.6 fL 35.1-43.9 [facility] Hematocrit Auto (Bld) [Volum e fraction]Ordered By: Nito Nur on 02-22-2024 Hematocrit (Bld) [Volume fraction] 41.4 % 37-47 [facility] Immature granulocytes/100 WB C Auto (Bld)Ordered By: Nito Nur on 02-22-2024 Immature granulocytes/100 WBC (Bld) 0.400 % 0.0-0.9 [facility] Comment on above: IG% - Immature Granu locytes (promyelocytes, myelocytes and metamyelocytes) > 1% indicates that a LEFT SHIFT is Present. Ketones Test strip Ql (U)Ord ered By: Nito Nur on 02-22-2024 Ketones Ql (U) Negative Negative [facility] Laboratory - Chemistry and C hemistry - challengeOrdered By: Nito Nur on 02-22-2024 Albumin/Globulin [Mass ratio] 1.1 {ratio} 0.9-2.4 [facility] ALP [Catalytic activity/Vol] 67 U/L 45-117 [facility] ALT [Catalytic activity/Vol] 19 U/L 13-56 [facility] CO2 [Moles/Vol] 24.0 mmol/L 21.0-32.0 [facility] Globulin (S) [Mass/Vol] 3.9 g/dL 2.2-4.2 [facility] Magnesium [Mass/Vol] 2.1 mg/dL 1.6-2.6 [facility] Urea nitrogen/Creatinine [Mass ratio] 10.5 mg/mg 10-20 [facility] Laboratory - Hematology and Cell countsOrdered By: Nito Nur on 02-22-2024 MCH (RBC) [Entitic mass] 28.8 pg 27.0-32.0 [facility] MCHC (RBC) [Mass/Vol] 33.1 g/dL 32-36 [facility] Nucleated RBC/100 WBC (Bld) [Ratio] 0 % 0-5 [facility] Platelet mean volume (Bld) [Entitic vol] 10.3 fL 6.2-12.0 [facility] Platelets (Bld) [#/Vol] 280 10*3/uL 150-450 [facility] Mucus LM Ql (Urine sed)Order ed By: Nito Nur on 02-22-2024 Mucus Ql (Urine sed) RARE /hpf [facility] Nitrite Test strip Ql (U)Ord ered By: Nito Nur on 02-22-2024 Nitrite Ql (U) Negative Negative [facility] No Panel InformationOrdered By: Nito Nur on 02-22-2024 Urine RBC 0-5 SEEN /hpf 0-5 [facility] Estimated Creatinine Clearance Calc 114.66 ml/min [facility] Estimated GFR (MDRD) Amer 97 mL/min >60 [facility] Comment on above: GFR Calc Estimated GFR (MDRD) Non-Af Amer 81 mL/min >60 [facility] Comment on above: Non- GFR Calc Protein Test strip Ql (U)Ord ered By: Nito Nur on 02-22-2024 Protein Ql (U) 30 mg/dl Negative [facility] RBC Auto (Bld) [#/Vol]Ordere d By: Nito Nur on 02-22-2024 RBC (Bld) [#/Vol] 4.75 10*6/uL 4.2-5.4 [facility] Serum or plasma calcium omega urement (mass/volume)Ordered By: Nito Nur on 02-22-2024 Calcium [Mass/Vol] 9.2 mg/dL 8.5-10.1 [facility] Serum or plasma choriogonado tropin detectionOrdered By: Nito Nur on 02-22-2024 HCG ( test) Ql Negative [facility] Serum or plasma creatinine m easurement (mass/volume)Ordered By: Nito Nur on 02-22-2024 Creatinine [Mass/Vol] 0.86 mg/dL 0.55-1.02 [facility] Comment on above: The validity of the calculated GFR & GFRAA in patients over 70 years has not been determined. Clinical correlation is essential. Serum or plasma urea nitroge n measurement (mass/volume)Ordered By: Nito Nur on 02-22-2024 Urea nitrogen [Mass/Vol] 9 mg/dL 7-18 [facility] Squamous epithelial cells de tection in urine sediment by light microscopyOrdered By: Nito Nur on 02-22-2024 Epithelial cells.squamous LM Ql (Urine sed) 0-5 SEEN /hpf 5-10 [facility] Thin prep Papanicolaou smear with manual screeningOrdered By: Nito Nur on 02-22-2024 Thin prep Papanicolaou smear with manual screening 4.1 g/dL 3.2-5.0 [facility] Thin prep Papanicolaou smear with manual screening 21 U/L 15-37 [facility] Thin prep Papanicolaou smear with manual screening 6 5-15 [facility] Urine blood detectionOrdered By: Nito Nur on 02-22-2024 RBC Ql (U) 10 /ul Negative [facility] Urine clarityOrdered By: Kayla Nur on 02-22-2024 Clarity (U) Clear Clear [facility] Urine color determinationOrd ered By: Nito Nur on 02-22-2024 Color (U) Yellow Yellow [facility] Urine glucose detectionOrder ed By: Nito Nur on 02-22-2024 Glucose Ql (U) Normal mg/dl Normal [facility] Urine leukocyte esterase det ection by dipstickOrdered By: Nito Nur on 02-22-2024 Leukocyte esterase Test strip Ql (U) 100 /ul Negative [facility] Urine pHOrdered By: Nito ramon on 02-22-2024 pH (U) 5.0 [pH] 5.0 - 8.0 [facility] Urine sediment bacteria coun t by microscopy (number/high power field)Ordered By: Nito Nur on 02-22-2024 Bacteria LM.HPF (Urine sed) [#/Area] RARE /hpf None Seen [facility] Urine specific gravity measu rementOrdered By: Nito Nur on 02-22-2024 Specific gravity (U) [Rel density] 1.020 1.002-1.030 [facility] Urine urobilinogen measureme ntOrdered By: Nito Gipsonangel on 02-22-2024 Urobilinogen Ql (U) Normal mg/dl Normal [facility] Absolute lymphocyte countOrd ered By: Jose Wynn on 12-05-2023 Lymphocytes Auto (Unsp spec) [#/Vol] 2.78 10*3/uL 0.83-4.51 [facility] Automated lymphocyte count a s percentage of total leukocytesOrdered By: Jose Wynn on 12-05-2023 Lymphocytes/100 WBC Auto (Unsp spec) 34.2 % 19-41 [facility] Basophil percentageOrdered B y: Jose Wynn on 12-05-2023 Basophil percentage 0-5 SEEN /hpf 0-5 [facility] Basophils/100 WBC (Bld) 0.7 % 0-1 [facility] Chloride [Moles/Vol] 112 mmol/L 98-107 [facility] Eosinophils/100 WBC (Bld) 5.8 % 0-5 [facility] Glucose [Mass/Vol] 107 mg/dL 74-106 [facility] Comment on above: Fasting Glucose resu lt from 100 to 125 mg/dL suggests IMPAIRED HOMEOSTASIS per A.D.A. criteria. Hemoglobin (Bld) [Mass/Vol] 12.9 g/dL 12.0-15.0 [facility] Monocytes/100 WBC (Bld) 5.3 % 0-10 [facility] Neutrophils (Bld) [#/Vol] 4.4 10*3/uL 2.0-7.7 [facility] Neutrophils/100 WBC (Bld) 53.8 % 47-70 [facility] Potassium [Moles/Vol] 3.3 mmol/L 3.5-5.1 [facility] Sodium [Moles/Vol] 142 mmol/L 136-145 [facility] WBC (Bld) [#/Vol] 8.1 10*3/uL 4.4-11.0 [facility] Bilirubin Test strip Ql (U)O rdered By: Jose Wynn on 12-05-2023 Bilirubin Ql (U) Negative Negative [facility] Determination of erythrocyte mean corpuscular volume (MCV)Ordered By: Jose Wynn on 12-05-2023 MCV (RBC) [Entitic vol] 86.4 fL 81-99 [facility] Erythrocyte distribution wid th ratioOrdered By: Jose Wynn on 12-05-2023 Erythrocyte distribution width (RBC) [Ratio] 13.3 % 11.6-14.6 [facility] Erythrocyte distribution wid th standard deviationOrdered By: Jose Wynn on 12-05-2023 Erythrocyte distribution width (RBC) [Entitic vol] 41.4 fL 35.1-43.9 [facility] Hematocrit Auto (Bld) [Volum e fraction]Ordered By: Jose Wynn on 12-05-2023 Hematocrit (Bld) [Volume fraction] 39.9 % 37-47 [facility] Immature granulocytes/100 WB C Auto (Bld)Ordered By: Jose Wynn on 12-05-2023 Immature granulocytes/100 WBC (Bld) 0.200 % 0.0-0.9 [facility] Comment on above: IG% - Immature Granu locytes (promyelocytes, myelocytes and metamyelocytes) > 1% indicates that a LEFT SHIFT is Present. Ketones Test strip Ql (U)Ord ered By: Jose Wynn on 12-05-2023 Ketones Ql (U) 5 mg/dl Negative [facility] Laboratory - Chemistry and C hemistry - challengeOrdered By: Jose Wynn on 12-05-2023 CO2 [Moles/Vol] 25.0 mmol/L 21.0-32.0 [facility] Urea nitrogen/Creatinine [Mass ratio] 8.3 mg/mg 10-20 [facility] Laboratory - Hematology and Cell countsOrdered By: Jose Wynn on 12-05-2023 MCH (RBC) [Entitic mass] 27.9 pg 27.0-32.0 [facility] MCHC (RBC) [Mass/Vol] 32.3 g/dL 32-36 [facility] Nucleated RBC/100 WBC (Bld) [Ratio] 0 % 0-5 [facility] Platelets (Bld) [#/Vol] 281 10*3/uL 150-450 [facility] Mucus LM Ql (Urine sed)Order ed By: Jose Wynn on 01-31-2024 Mucus Ql (Urine sed) 2+ /hpf [facility] Nitrite Test strip Ql (U)Ord ered By: Jose Wynn on 12-05-2023 Nitrite Ql (U) Negative Negative [facility] No Panel InformationOrdered By: Jose Wynn on 12-05-2023 Urine RBC 0-5 SEEN /hpf 0-5 [facility] Estimated Creatinine Clearance Calc 123.09 ml/min [facility] Estimated GFR (MDRD) Amer 99 mL/min >60 [facility] Comment on above: GFR Calc Estimated GFR (MDRD) Non-Af Amer 82 mL/min >60 [facility] Comment on above: Non- GFR Calc Platelet mean volume Ryan-Ec ker (Bld) [Entitic vol]Ordered By: Jose Wynn on 12-05-2023 Platelet mean volume (Bld) [Entitic vol] 10.3 fL 6.2-12.0 [facility] Protein Test strip Ql (U)Ord ered By: Jose Wynn on 12-05-2023 Protein Ql (U) 30 mg/dl Negative [facility] RBC Auto (Bld) [#/Vol]Ordere d By: Jose Wynn on 12-05-2023 RBC (Bld) [#/Vol] 4.62 10*6/uL 4.2-5.4 [facility] Serum or plasma calcium omega urement (mass/volume)Ordered By: Jose Wynn on 12-05-2023 Calcium [Mass/Vol] 9.1 mg/dL 8.5-10.1 [facility] Serum or plasma choriogonado tropin detectionOrdered By: Jose Wynn on 12-05-2023 HCG ( test) Ql Negative [facility] Serum or plasma creatinine m easurement (mass/volume)Ordered By: Jose Wynn on 12-05-2023 Creatinine [Mass/Vol] 0.84 mg/dL 0.55-1.02 [facility] Comment on above: The validity of the calculated GFR & GFRAA in patients over 70 years has not been determined. Clinical correlation is essential. Serum or plasma urea nitroge n measurement (mass/volume)Ordered By: Jose Wynn on 12-05-2023 Urea nitrogen [Mass/Vol] 7 mg/dL 7-18 [facility] Squamous epithelial cells de tection in urine sediment by light microscopyOrdered By: Jose Wynn on 12-05-2023 Epithelial cells.squamous LM Ql (Urine sed) 5-10 SEEN /hpf 5-10 [facility] Thin prep Papanicolaou smear with manual screeningOrdered By: Jose Wynn on 12-05-2023 Thin prep Papanicolaou smear with manual screening 5 5-15 [facility] Urine blood detectionOrdered By: Jose Wynn on 12-05-2023 RBC Ql (U) 10 /ul Negative [facility] Urine clarityOrdered By: Ksenia Wynn on 12-05-2023 Clarity (U) Cloudy Clear [facility] Urine color determinationOrd ered By: Jose Wynn on 12-05-2023 Color (U) Yellow Yellow [facility] Urine glucose detectionOrder ed By: Jose Wynn on 12-05-2023 Glucose Ql (U) Normal mg/dl Normal [facility] Urine leukocyte esterase det ection by dipstickOrdered By: Jose Wynn on 12-05-2023 Leukocyte esterase Test strip Ql (U) 25 /ul Negative [facility] Urine pHOrdered By: Jose Aguilar gur on 12-05-2023 pH (U) 6.0 [pH] 5.0 - 8.0 [facility] Urine sediment bacteria coun t by microscopy (number/high power field)Ordered By: Jose Wynn on 12-05-2023 Bacteria LM.HPF (Urine sed) [#/Area] 1 /[HPF] None Seen [facility] Urine specific gravity measu rementOrdered By: Jose Wynn on 12-05-2023 Specific gravity (U) [Rel density] 1.020 1.002-1.030 [facility] Urine urobilinogen measureme ntOrdered By: Jose Wynn on 12-05-2023 Urobilinogen Ql (U) 1 mg/dl Normal [facility] Absolute lymphocyte countOrd ered By: Jose Wynn on 11-17-2023 Lymphocytes Auto (Unsp spec) [#/Vol] 2.52 10*3/uL 0.83-4.51 [facility] Basophil percentageOrdered B y: Jose Wynn on 11-17-2023 Basophils/100 WBC (Bld) 0.9 % 0-1 [facility] Bilirubin [Mass/Vol] 0.60 mg/dL 0.20-1.00 [facility] Comment on above: For patients on eltr ombopag therapy, use of Dimension Howe TBIL is not recommended. Chloride [Moles/Vol] 110 mmol/L 98-107 [facility] Eosinophils/100 WBC (Bld) 0.1 % 0-5 [facility] Glucose [Mass/Vol] 103 mg/dL 74-106 [facility] Comment on above: Fasting Glucose resu lt from 100 to 125 mg/dL suggests IMPAIRED HOMEOSTASIS per A.D.A. criteria. Neutrophils (Bld) [#/Vol] 5.2 10*3/uL 2.0-7.7 [facility] Neutrophils/100 WBC (Bld) 63.4 % 47-70 [facility] Potassium [Moles/Vol] 3.2 mmol/L 3.5-5.1 [facility] Protein [Mass/Vol] 7.9 g/dL 6.4-8.2 [facility] Sodium [Moles/Vol] 141 mmol/L 136-145 [facility] WBC (Bld) [#/Vol] 8.2 10*3/uL 4.4-11.0 [facility] Beta hCG serum qualOrdered B y: Jose Wynn on 11-17-2023 Beta HCG ( test) Ql Negative [facility] Blood erythrocytes count (nu mber/volume)Ordered By: Jose Wynn on 11-17-2023 RBC (Bld) [#/Vol] 4.99 10*6/uL 4.2-5.4 [facility] Blood hemoglobin measurement (mass/volume)Ordered By: Jose Wynn on 11-17-2023 Hemoglobin (Bld) [Mass/Vol] 14.0 g/dL 12.0-15.0 [facility] Blood lymphocytes/100 leukoc ytesOrdered By: Jose Wynn on 11-17-2023 Lymphocytes/100 WBC (Bld) 30.6 % 19-41 [facility] Blood monocytes/100 leukocyt esOrdered By: Jose Wynn on 11-17-2023 Monocytes/100 WBC (Bld) 4.6 % 0-10 [facility] Blood platelet mean volumeOr dered By: [facility] on 11-17-2023 Platelet mean volume (Bld) [Entitic vol] 10.5 fL 6.2-12.0 [facility] Determination of erythrocyte mean corpuscular volume (MCV)Ordered By: [facility] on 11-17-2023 MCV (RBC) [Entitic vol] 86.4 fL 81-99 [facility] Hematocrit Auto (Bld) [Volum e fraction]Ordered By: Christianacaremigue on 11-17-2023 Hematocrit (Bld) [Volume fraction] 43.1 % 37-47 [facility] Laboratory - Chemistry and C hemistry - challengeOrdered By: Christianacaremigue on 11-17-2023 ALP [Catalytic activity/Vol] 85 U/L 45-117 [facility] ALT [Catalytic activity/Vol] 39 U/L 13-56 [facility] CO2 [Moles/Vol] 25.0 mmol/L 21.0-32.0 [facility] Globulin (S) [Mass/Vol] 4.0 g/dL 2.2-4.2 [facility] Lipase [Catalytic activity/Vol] 26 U/L 13-75 [facility] Comment on above: Please note:LIPASE r evised reference range effective 23. New Lipase methodology. Expected to produce lower values than the previous assay method. NEW Reference Range: 13 - 75 U/L Urea nitrogen/Creatinine [Mass ratio] 8.7 mg/mg 10-20 [facility] Laboratory - Hematology and Cell countsOrdered By: Brimley Tianna on 11-17-2023 Erythrocyte distribution width (RBC) [Entitic vol] 42.1 fL 35.1-43.9 [facility] Erythrocyte distribution width (RBC) [Ratio] 13.5 % 11.6-14.6 [facility] Immature granulocytes/100 WBC (Bld) 0.400 % 0.0-0.9 [facility] Comment on above: IG% - Immature Granu locytes (promyelocytes, myelocytes and metamyelocytes) > 1% indicates that a LEFT SHIFT is Present. MCH (RBC) [Entitic mass] 28.1 pg 27.0-32.0 [facility] Nucleated RBC/100 [facility] (Bld) [[facility]] 0 [facility] [Mass/Vol]Or dered By: Jose Wynn on 11-17-2023 MCHC (RBC) [Mass/Vol] 32.5 g/dL 32-36 [facility] No Panel InformationOrdered By: Jose Wynn on 11-17-2023 Estimated Creatinine Clearance Calc 116.73 ml/min [facility] Estimated GFR (MDRD) Amer 90 mL/min >60 [facility] Comment on above: GFR Calc Estimated GFR (MDRD) Non-Af Amer 74 mL/min >60 [facility] Comment on above: Non- GFR Calc Ethyl Alcohol Level < 3.0 mg/dL [facility] Comment on above: The serum:whole bloo d ethanol ratio is approximately 1.14and varies slightly with hematocrit. Medical Alcohol reference interval and critical value innon-tolerant individuals; 50 - 100 Impairment 100 Intoxication 100 - 250 Severe Poisoning 250 - 400 Deep/possible fatal coma Platelets bldOrdered By: Ksenia Wynn on 11-17-2023 Platelets (Bld) [#/Vol] 263 10*3/uL 150-450 [facility] Serum or plasma albumin omega urement (mass/volume)Ordered By: Jose Wynn on 11-17-2023 Albumin [Mass/Vol] 3.9 g/dL 3.2-5.0 [facility] Serum or plasma albumin/glob ulin mass ratioOrdered By: Jose Wynn on 11-17-2023 Albumin/Globulin [Mass ratio] 1.0 {ratio} 0.9-2.4 [facility] Serum or plasma calcium omega urement (mass/volume)Ordered By: Jose Wynn on 11-17-2023 Calcium [Mass/Vol] 9.6 mg/dL 8.5-10.1 [facility] Serum or plasma creatinine m easurement (mass/volume)Ordered By: Jose Wynn on 11-17-2023 Creatinine [Mass/Vol] 0.92 mg/dL 0.55-1.02 [facility] Comment on above: The validity of the calculated GFR & GFRAA in patients over 70 years has not been determined. Clinical correlation is essential. Serum or plasma urea nitroge n measurement (mass/volume)Ordered By: Jose Wynn on 11-17-2023 Urea nitrogen [Mass/Vol] 8 mg/dL 7-18 [facility] Thin prep Papanicolaou smear with manual screeningOrdered By: Jose Wynn on 11-17-2023 Thin prep Papanicolaou smear with manual screening 24 U/L 15-37 [facility] Thin prep Papanicolaou smear with manual screening 6 5-15 [facility] Absolute lymphocyte countOrd ered By: Garrett Brooks on 10-25-2023 Lymphocytes Auto (Unsp spec) [#/Vol] 2.95 10*3/uL 0.83-4.51 [facility] Basophil percentageOrdered B y: Garrett Brooks on 10-25-2023 Basophil percentage 0-5 SEEN /hpf 0-5 [facility] Basophils/100 WBC (Bld) 0.6 % 0-1 [facility] Bilirubin [Mass/Vol] 0.70 mg/dL 0.20-1.00 [facility] Comment on above: For patients on eltr ombopag therapy, use of Dimension Howe TBIL is not recommended. Chloride [Moles/Vol] 108 mmol/L 98-107 [facility] Eosinophils/100 WBC (Bld) 4.8 % 0-5 [facility] Glucose [Mass/Vol] 119 mg/dL 74-106 [facility] Comment on above: Fasting Glucose resu lt from 100 to 125 mg/dL suggests IMPAIRED HOMEOSTASIS per A.D.A. criteria. Neutrophils (Bld) [#/Vol] 4.6 10*3/uL 2.0-7.7 [facility] Neutrophils/100 WBC (Bld) 53.6 % 47-70 [facility] Potassium [Moles/Vol] 3.6 mmol/L 3.5-5.1 [facility] Protein [Mass/Vol] 7.7 g/dL 6.4-8.2 [facility] Sodium [Moles/Vol] 141 mmol/L 136-145 [facility] WBC (Bld) [#/Vol] 8.6 10*3/uL 4.4-11.0 [facility] Beta hCG serum qualOrdered B y: Garrett Brooks on 10-25-2023 Beta HCG ( test) Ql Negative [facility] Bilirubin Test strip Ql (U)O rdered By: Garrett Brooks on 10-25-2023 Bilirubin Ql (U) Negative Negative [facility] Blood erythrocytes count (nu mber/volume)Ordered By: Garrett Brooks on 10-25-2023 RBC (Bld) [#/Vol] 4.69 10*6/uL 4.2-5.4 [facility] Blood hemoglobin measurement (mass/volume)Ordered By: Garrett Brooks on 10-25-2023 Hemoglobin (Bld) [Mass/Vol] 13.1 g/dL 12.0-15.0 [facility] Blood lymphocytes/100 leukoc ytesOrdered By: Garrett Brooks on 10-25-2023 Lymphocytes/100 WBC (Bld) 34.3 % 19-41 [facility] Blood monocytes/100 leukocyt esOrdered By: Garrett Brooks on 10-25-2023 Monocytes/100 WBC (Bld) 6.5 % 0-10 [facility] Blood platelet mean volumeOr dered By: Garrett Brooks on 10-25-2023 Platelet mean volume (Bld) [Entitic vol] 10.2 fL 6.2-12.0 [facility] Determination of erythrocyte mean corpuscular volume (MCV)Ordered By: Garrett Brooks on 10-25-2023 MCV (RBC) [Entitic vol] 87.0 fL 81-99 [facility] Hematocrit Auto (Bld) [Volum e fraction]Ordered By: Garrett Brooks on 10-25-2023 Hematocrit (Bld) [Volume fraction] 40.8 % 37-47 [facility] Ketones Test strip Ql (U)Ord ered By: Garrett Brooks on 10-25-2023 Ketones Ql (U) Negative Negative [facility] Laboratory - Chemistry and C hemistry - challengeOrdered By: Garrett Brooks on 10-25-2023 ALP [Catalytic activity/Vol] 81 U/L 45-117 [facility] ALT [Catalytic activity/Vol] 22 U/L 13-56 [facility] CO2 [Moles/Vol] 26.0 mmol/L 21.0-32.0 [facility] Globulin (S) [Mass/Vol] 4.0 g/dL 2.2-4.2 [facility] Lipase [Catalytic activity/Vol] 22 U/L 13-75 [facility] Comment on above: Please note:LIPASE r evised reference range effective 23. New Lipase methodology. Expected to produce lower values than the previous assay method. NEW Reference Range: 13 - 75 U/L Urea nitrogen/Creatinine [Mass ratio] 7.2 mg/mg 10-20 [facility] Laboratory - Hematology and Cell countsOrdered By: Garrett Brooks on 10-25-2023 Erythrocyte distribution width (RBC) [Entitic vol] 41.5 fL 35.1-43.9 [facility] Erythrocyte distribution width (RBC) [Ratio] 13.3 % 11.6-14.6 [facility] Immature granulocytes/100 WBC (Bld) 0.200 % 0.0-0.9 [facility] Comment on above: IG% - Immature Granu locytes (promyelocytes, myelocytes and metamyelocytes) > 1% indicates that a LEFT SHIFT is Present. MCH (RBC) [Entitic mass] 27.9 pg 27.0-32.0 [facility] Nucleated RBC/100 WBC (Bld) [Ratio] 0 % 0-5 [facility] MCHC Auto (RBC) [Mass/Vol]Or dered By: Garrett Brooks on 10-25-2023 MCHC (RBC) [Mass/Vol] 32.1 g/dL 32-36 [facility] Mucus LM Ql (Urine sed)Order ed By: Garrett Brooks on 10-25-2023 Mucus Ql (Urine sed) 0 SEEN /hpf [facility] Nitrite Test strip Ql (U)Ord ered By: Garrett Brooks on 10-25-2023 Nitrite Ql (U) Negative Negative [facility] No Panel InformationOrdered By: Garrett Brooks on 10-25-2023 Estimated Creatinine Clearance Calc 81.49 ml/min [facility] Estimated GFR (MDRD) Amer 100 mL/min >60 [facility] Comment on above: GFR Calc Estimated GFR (MDRD) Non-Af Amer 82 mL/min >60 [facility] Comment on above: Non- GFR Calc Platelets bldOrdered By: Anirudh Brooks on 10-25-2023 Platelets (Bld) [#/Vol] 257 10*3/uL 150-450 [facility] Protein Test strip Ql (U)Ord ered By: Garrett Brooks on 10-25-2023 Protein Ql (U) 15 mg/dl Negative [facility] Serum or plasma albumin omega urement (mass/volume)Ordered By: Garrett Brooks on 10-25-2023 Albumin [Mass/Vol] 3.7 g/dL 3.2-5.0 [facility] Serum or plasma albumin/glob ulin mass ratioOrdered By: Garrett Brooks on 10-25-2023 Albumin/Globulin [Mass ratio] 0.9 {ratio} 0.9-2.4 [facility] Serum or plasma calcium omega urement (mass/volume)Ordered By: Garrett Brooks on 10-25-2023 Calcium [Mass/Vol] 9.4 mg/dL 8.5-10.1 [facility] Serum or plasma creatinine m easurement (mass/volume)Ordered By: Garrett Brooks on 10-25-2023 Creatinine [Mass/Vol] 0.84 mg/dL 0.55-1.02 [facility] Comment on above: The validity of the calculated GFR & GFRAA in patients over 70 years has not been determined. Clinical correlation is essential. Serum or plasma urea nitroge n measurement (mass/volume)Ordered By: Garrett Brooks on 10-25-2023 Urea nitrogen [Mass/Vol] 6 mg/dL 7-18 [facility] Squamous epithelial cells de tection in urine sediment by light microscopyOrdered By: Garrett Brooks on 10-25-2023 Epithelial cells.squamous LM Ql (Urine sed) 0-5 SEEN /hpf 5-10 [facility] Thin prep Papanicolaou smear with manual screeningOrdered By: Garrett Brooks on 10-25-2023 Thin prep Papanicolaou smear with manual screening 14 U/L 15-37 [facility] Thin prep Papanicolaou smear with manual screening 7 5-15 [facility] Urine blood detectionOrdered By: Garrett Brooks on 10-25-2023 RBC Ql (U) Negative Negative [facility] RBC Ql (U) 0 SEEN /hpf 0-5 [facility] Urine clarityOrdered By: Anirudh Brooks on 10-25-2023 Clarity (U) Clear Clear [facility] Urine color determinationOrd ered By: Garrett Brooks on 10-25-2023 Color (U) Yellow Yellow [facility] Urine glucose detectionOrder ed By: Garrett Brooks on 10-25-2023 Glucose Ql (U) Normal mg/dl Normal [facility] Urine leukocyte esterase det ection by dipstickOrdered By: Garrett Brooks on 10-25-2023 Leukocyte esterase Test strip Ql (U) Negative Negative [facility] Urine pHOrdered By: Garrett montano on 10-25-2023 pH (U) 7.0 [pH] 5.0 - 8.0 [facility] Urine sediment bacteria coun t by microscopy (number/high power field)Ordered By: Garrett Brooks on 10-25-2023 Bacteria LM.HPF (Urine sed) [#/Area] 0 /[HPF] None Seen [facility] Urine specific gravity measu rementOrdered By: Garrett Brooks on 10-25-2023 Specific gravity (U) [Rel density] 1.015 1.002-1.030 [facility] Urobilinogen Auto test strip Ql (U)Ordered By: Garrett Brooks on 10-25-2023 Urobilinogen Ql (U) Normal mg/dl Normal [facility] Absolute lymphocyte countOrd ered By: Agustín Estrada on 09-05-2023 Lymphocytes Auto (Unsp spec) [#/Vol] 3.03 10*3/uL 0.83-4.51 [facility] Basophil percentageOrdered B y: Agustín Estrada on 09-05-2023 Basophil percentage 0-5 SEEN /hpf 0-5 [facility] Basophils/100 WBC (Bld) 0.7 % 0-1 [facility] Bilirubin [Mass/Vol] 0.60 mg/dL 0.20-1.00 [facility] Comment on above: For patients on eltr ombopag therapy, use of Dimension [place] TBIL is not recommended. Chloride [Moles/Vol] 109 mmol/L 98-107 [facility] Eosinophils/100 WBC (Bld) 0.0 % 0-5 [facility] Glucose [Mass/Vol] 102 mg/dL 74-106 [facility] Comment on above: Fasting Glucose resu lt from 100 to 125 mg/dL suggests IMPAIRED HOMEOSTASIS per A.D.A. criteria. Neutrophils (Bld) [#/Vol] 5.1 10*3/uL 2.0-7.7 [facility] Neutrophils/100 WBC (Bld) 58.4 % 47-70 [facility] Potassium [Moles/Vol] 3.8 mmol/L 3.5-5.1 [facility] Protein [Mass/Vol] 7.7 g/dL 6.4-8.2 [facility] Sodium [Moles/Vol] 138 mmol/L 136-145 [facility] WBC (Bld) [#/Vol] 8.7 10*3/uL 4.4-11.0 [facility] Beta hCG serum qualOrdered B y: Agustín Estrada on 09-05-2023 Beta HCG ( test) Ql Negative [facility] Bilirubin Test strip Ql (U)O rdered By: Agustín Estrada on 09-05-2023 Bilirubin Ql (U) Negative Negative [facility] Blood erythrocytes count (nu mber/volume)Ordered By: Agustín Estrada on 09-05-2023 RBC (Bld) [#/Vol] 4.61 10*6/uL 4.2-5.4 [facility] Blood hemoglobin measurement (mass/volume)Ordered By: Agustín Estrada on 09-05-2023 Hemoglobin (Bld) [Mass/Vol] 12.7 g/dL 12.0-15.0 [facility] Blood lymphocytes/100 leukoc ytesOrdered By: Agustín Estrada on 09-05-2023 Lymphocytes/100 WBC (Bld) 34.9 % 19-41 [facility] Blood monocytes/100 leukocyt esOrdered By: Agustín Estrada on 09-05-2023 Monocytes/100 WBC (Bld) 5.7 % 0-10 [facility] Blood platelet mean volumeOr dered By: Agustín Estrada on 09-05-2023 Platelet mean volume (Bld) [Entitic vol] 9.6 fL 6.2-12.0 [facility] Determination of erythrocyte mean corpuscular volume (MCV)Ordered By: Agustín Estrada on 09-05-2023 MCV (RBC) [Entitic vol] 87.6 fL 81-99 [facility] Hematocrit Auto (Bld) [Volum e fraction]Ordered By: Agustín Estrada on 09-05-2023 Hematocrit (Bld) [Volume fraction] 40.4 % 37-47 [facility] Ketones Test strip Ql (U)Ord ered By: Agustín Estrada on 09-05-2023 Ketones Ql (U) Negative Negative [facility] Laboratory - Chemistry and C hemistry - challengeOrdered By: Agustín Estrada on 09-05-2023 ALP [Catalytic activity/Vol] 77 U/L 45-117 [facility] ALT [Catalytic activity/Vol] 21 U/L 13-56 [facility] CO2 [Moles/Vol] 24.0 mmol/L 21.0-32.0 [facility] Globulin (S) [Mass/Vol] 4.2 g/dL 2.2-4.2 [facility] Lipase [Catalytic activity/Vol] 22 U/L 13-75 [facility] Comment on above: Please note:LIPASE r evised reference range effective 23. New Lipase methodology. Expected to produce lower values than the previous assay method. NEW Reference Range: 13 - 75 U/L Urea nitrogen/Creatinine [Mass ratio] 10.4 mg/mg 10-20 [facility] Laboratory - Hematology and Cell countsOrdered By: Agustín Estrada on 09-05-2023 Erythrocyte distribution width (RBC) [Entitic vol] 42.2 fL 35.1-43.9 [facility] Erythrocyte distribution width (RBC) [Ratio] 13.2 % 11.6-14.6 [facility] Immature granulocytes/100 WBC (Bld) 0.300 % 0.0-0.9 [facility] Comment on above: IG% - Immature Granu locytes (promyelocytes, myelocytes and metamyelocytes) > 1% indicates that a LEFT SHIFT is Present. MCH (RBC) [Entitic mass] 27.5 pg 27.0-32.0 [facility] Nucleated RBC/100 WBC (Bld) [Ratio] 0 % 0-5 [facility] MCHC Auto (RBC) [Mass/Vol]Or dered By: Agustín Estrada on 09-05-2023 MCHC (RBC) [Mass/Vol] 31.4 g/dL 32-36 [facility] Mucus LM Ql (Urine sed)Order ed By: Agustín Estrada on 09-05-2023 Mucus Ql (Urine sed) 0 SEEN /hpf [facility] Nitrite Test strip Ql (U)Ord ered By: Agustín Estrada on 09-05-2023 Nitrite Ql (U) Negative Negative [facility] No Panel InformationOrdered By: Agustín Estrada on 09-05-2023 Urine Transitional Epithelial Cells 0-5 SEEN /hpf 0-5 [facility] Estimated Creatinine Clearance Calc 79.59 ml/min [facility] Estimated GFR (MDRD) Amer 96 mL/min >60 [facility] Comment on above: GFR Calc Estimated GFR (MDRD) Non-Af Amer 80 mL/min >60 [facility] Comment on above: Non- GFR Calc Platelets bldOrdered By: Austyn Estrada on 09-05-2023 Platelets (Bld) [#/Vol] 296 10*3/uL 150-450 [facility] Protein Test strip Ql (U)Ord ered By: Agustín Estrada on 09-05-2023 Protein Ql (U) 15 mg/dl Negative [facility] Serum or plasma albumin omega urement (mass/volume)Ordered By: Agustín Estrada on 09-05-2023 Albumin [Mass/Vol] 3.5 g/dL 3.2-5.0 [facility] Serum or plasma albumin/glob ulin mass ratioOrdered By: Agustín Estrada on 09-05-2023 Albumin/Globulin [Mass ratio] 0.8 {ratio} 0.9-2.4 [facility] Serum or plasma calcium omega urement (mass/volume)Ordered By: Agustín Estrada on 09-05-2023 Calcium [Mass/Vol] 9.0 mg/dL 8.5-10.1 [facility] Serum or plasma creatinine m easurement (mass/volume)Ordered By: Agustín Estrada on 09-05-2023 Creatinine [Mass/Vol] 0.86 mg/dL 0.55-1.02 [facility] Comment on above: The validity of the calculated GFR & GFRAA in patients over 70 years has not been determined. Clinical correlation is essential. Serum or plasma urea nitroge n measurement (mass/volume)Ordered By: Agustín Estrada on 09-05-2023 Urea nitrogen [Mass/Vol] 9 mg/dL 7-18 [facility] Squamous epithelial cells de tection in urine sediment by light microscopyOrdered By: Agustín Estrada on 09-05-2023 Epithelial cells.squamous LM Ql (Urine sed) 0-5 SEEN /hpf 5-10 [facility] Thin prep Papanicolaou smear with manual screeningOrdered By: Agustín Estrada on 09-05-2023 Thin prep Papanicolaou smear with manual screening 15 U/L 15-37 [facility] Thin prep Papanicolaou smear with manual screening 5 5-15 [facility] Urine blood detectionOrdered By: Agustín Estrada on 09-05-2023 RBC Ql (U) Negative Negative [facility] RBC Ql (U) 0 SEEN /hpf 0-5 [facility] Urine clarityOrdered By: Austyn Estrada on 09-05-2023 Clarity (U) Clear Clear [facility] Urine color determinationOrd ered By: Agustín Estrada on 09-05-2023 Color (U) Yellow Yellow [facility] Urine glucose detectionOrder ed By: Agustín Estrada on 09-05-2023 Glucose Ql (U) Normal mg/dl Normal [facility] Urine leukocyte esterase det ection by dipstickOrdered By: Agustín Estrada on 09-05-2023 Leukocyte esterase Test strip Ql (U) 25 /ul Negative [facility] Urine pHOrdered By: Agustín harris on 09-05-2023 pH (U) 6.0 [pH] 5.0 - 8.0 [facility] Urine sediment bacteria coun t by microscopy (number/high power field)Ordered By: Agustín Estrada on 09-05-2023 Bacteria LM.HPF (Urine sed) [#/Area] 0 /[HPF] None Seen [facility] Urine specific gravity measu rementOrdered By: Agustín Estrada on 09-05-2023 Specific gravity (U) [Rel density] 1.010 1.002-1.030 [facility] Urobilinogen Auto test strip Ql (U)Ordered By: Agustín Estrada on 09-05-2023 Urobilinogen Ql (U) Normal mg/dl Normal [facility] ALLIED HEALTHon 06-07-2023 ALLIED HEALTH HNO ID: [id number] Author: Belkis Hogan RT(R) Service: ? 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 Type: Allied Health Filed: 06/06/2023 10:13 PM [...] RT Génesis(R) June 06, 2023 10:13 PM [facility] ECG COMPLETEon 06-07-2023 ECG COMPLETE Ventricular Rate : 6 5 BPM Atrial Rate : 65 BPM P-R Interval : 126 ms QRS Duration : 100 ms Q-T Interval : 428 ms QTC Calculation(Bazett) : 445 ms Calculated P [place] : 52 degrees Calculated R [place] : 36 degrees Calculated T [place] : 30 degrees SINUS RHYTHM WITH MARKED SINUS ARRHYTHMIA OTHERWISE NORMAL ECG NO PREVIOUS ECGS AVAILABLE Confirmed by MD BERMEO VINAYAK ([id number]) on 06/07/2023 9:40:19 AM NAME : DAYNA TINSLEY PID : [id number] : 1990 Gender : Female Race : ORD : [id number] Procedure Date : Jun 06 2023 22:12:30 Edit Date : Jun 07 2023 09:40:23 Diagnosis: SINUS RHYTHM WITH MARKED SINUS ARRHYTHMIA OTHERWISE NORMAL ECG NO PREVIOUS ECGS AVAILABLE Confirmed by MD BERMEO VINAYAK ([id number]) on 06/07/2023 9:40:19 AM Test Reason : Chest Pain Location : 150 : [facility] Overread By : MD BERMEO VINAYAK Edited By : MD BERMEO VINAYAK Referred By : , Acquired by : LAUREN CALIX [facility] ED NOTEon 06-07-2023 ED NOTE HNO ID: [id number] Author: Vania Hansen RN Service: Emergency Medicine Author Type: Registered Nurse Type: ED Notes Filed: 06/06/2023 11:05 PM Note Text: Patient is AANDO, wdp, resps unlabored, relaxed facial expression and posture. Does not appear to be in any distress. Dc instr to fu w pmd, return prn, verb und. Ambulates from ER [facility] ED NOTE HNO ID: [id number] Author: Yeny Kay, DOUG Service: Emergency Medicine Author Type: Registered Nurse Type: ED Notes Filed: 06/06/2023 10:30 PM Note Text: Pt refuses zofran. Physician updated. 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 States that when she took out the trash 3 days ago something splashed her arm and she is concerned that it is exposing her to toxins. She states that she has had temperature problems as well as tingling sensation in her right arm since. Was actually seen and evaluated at [facility] for this yesterday. They recommended outpatient [...] HISTORY OF 2012 caudal epidural steroid injection (Bro[place]) SUCTION D AND C 2010 FAMILY HISTORY [...] cerebellar testing with finger to nose or [id number] exam. Patient with even steady gait in the emergency room. Diagnostic Testing ED Labs Ordered and Reviewed - No data to display Procedures ED Course / Clinical Impression ED Course as of 06/06/232320 Jennifer Zaidi's Documentation Wed Jun 06, 20239 Triage EKG obtained and reviewed by myself. Sinus rhythm noted with sinus arrhythmia. Ventricular to 65 bpm. No (more content not included)... Normal [facility] XR CHEST 2V FRONTAL/LATon XR CHEST 2V [...] significant acute radiographic abnormality of the chest. Carburetor Expert: PSCB Transcribe Date/Time: Jun 06 2023 10:38P Dictated by : RANJAN ANGEL MD This examination was interpreted and the report reviewed and electronically signed by: RANJAN ANGEL MD on Jun 06 2023 10:39PM EST [id number] Normal [facility] ED NOTEon 06-06-2023 ED NOTE HNO ID: [id number] Author: Deborah Ornelas, RN Service: Nursing Author Type: Registered Nurse Type: ED Notes Filed: 06/06/2023 9:21 PM Note Text: Pt states she was at work ([employer]) and was splashed by unknown substance of biohazard waste on R forearm. Pt reports she been having chest pain and thinks her R arm is swollen. Pt states I've been sick non-stop back to back for three weeks pt also reports back pain and fevers for three weeks Normal [facility] Absolute lymphocyte countOrd ered By: Major Mejia on 06-05-2023 Lymphocytes Auto (Unsp spec) [#/Vol] 3.02 10*3/uL 0.83-4.51 [facility] Basophil percentageOrdered B y: Major Mejia on 06-05-2023 Basophils/100 WBC (Bld) 0.5 % 0-1 [facility] Chloride [Moles/Vol] 110 mmol/L 98-107 [facility] Eosinophils/100 WBC (Bld) 0.1 % 0-5 [facility] Glucose [Mass/Vol] 96 mg/dL 74-106 [facility] Lactate [Moles/Vol] 0.4 mmol/L 0.4-2.0 [facility] Neutrophils (Bld) [#/Vol] 6.5 10*3/uL 2.0-7.7 [facility] Neutrophils/100 WBC (Bld) 64.4 % 47-70 [facility] Potassium [Moles/Vol] 5.0 mmol/L 3.5-5.1 [facility] Comment on above: Moderate Hemolysis, Result may be falsely increased. Sodium [Moles/Vol] 136 mmol/L 136-145 [facility] WBC (Bld) [#/Vol] 10.1 10*3/uL 4.4-11.0 [facility] Blood erythrocytes count (nu mber/volume)Ordered By: Major Mejai on 06-05-2023 RBC (Bld) [#/Vol] 4.48 10*6/uL 4.2-5.4 [facility] Blood hemoglobin measurement (mass/volume)Ordered By: Major Mejia on 06-05-2023 Hemoglobin (Bld) [Mass/Vol] 12.3 g/dL 12.0-15.0 [facility] Blood lymphocytes/100 leukoc ytesOrdered By: Major Mejia on 06-05-2023 Lymphocytes/100 WBC (Bld) 29.9 % 19-41 [facility] Blood monocytes/100 leukocyt esOrdered By: Major Mejia on 06-05-2023 Monocytes/100 WBC (Bld) 4.8 % 0-10 [facility] Blood platelet mean volumeOr dered By: Major Mejia on 06-05-2023 Platelet mean volume (Bld) [Entitic vol] 10.2 fL 6.2-12.0 [facility] Determination of erythrocyte mean corpuscular volume (MCV)Ordered By: Major Mejia on 06-05-2023 MCV (RBC) [Entitic vol] 85.0 fL 81-99 [facility] Hematocrit Auto (Bld) [Volum e fraction]Ordered By: Major Mejia on 06-05-2023 Hematocrit (Bld) [Volume fraction] 38.1 % 37-47 [facility] Laboratory - Chemistry and C hemistry - challengeOrdered By: Major Mejia on 06-05-2023 CO2 [Moles/Vol] 22.0 mmol/L 21.0-32.0 [facility] Magnesium [Mass/Vol] 2.0 mg/dL 1.6-2.6 [facility] Comment on above: Moderate Hemolysis, Result may be falsely increased. Urea nitrogen/Creatinine [Mass ratio] 4.2 mg/mg 10-20 [facility] Laboratory - Hematology and Cell countsOrdered By: Major Mejia on 06-05-2023 Erythrocyte distribution width (RBC) [Entitic vol] 43.1 fL 35.1-43.9 [facility] Erythrocyte distribution width (RBC) [Ratio] 13.9 % 11.6-14.6 [facility] Immature granulocytes/100 WBC (Bld) 0.300 % 0.0-0.9 [facility] Comment on above: IG% - Immature Granu locytes (promyelocytes, myelocytes and metamyelocytes) > 1% indicates that a LEFT SHIFT is Present. MCH (RBC) [Entitic mass] 27.5 pg 27.0-32.0 [facility] Nucleated RBC/100 WBC (Bld) [Ratio] 0 % 0-5 [facility] MCHC Auto (RBC) [Mass/Vol]Or dered By: Major Mejia on 06-05-2023 MCHC (RBC) [Mass/Vol] 32.3 g/dL 32-36 [facility] No Panel InformationOrdered By: Major Mejia on 06-05-2023 Estimated Creatinine Clearance Calc 96.41 ml/min [facility] Estimated GFR (MDRD) Amer 120 mL/min >60 [facility] Comment on above: GFR Calc Estimated GFR (MDRD) Non-Af Amer 99 mL/min >60 [facility] Comment on above: Non- GFR Calc Troponin I High Sensitivity 3 pg/mL 3.0-54.0 [facility] Comment on above: Please Note: [place] t Units and Gender Specific Reference Ranges. For more information see Policy Stat Procedure [place] High Sensitivity Troponin (TNIH) and attachments. Platelets bldOrdered By: Johnson Mejia on 06-05-2023 Platelets (Bld) [#/Vol] 243 10*3/uL 150-450 [facility] Serum or plasma calcium omega urement (mass/volume)Ordered By: Major Mejia on 06-05-2023 Calcium [Mass/Vol] 8.3 mg/dL 8.5-10.1 [facility] Serum or plasma creatinine m easurement (mass/volume)Ordered By: Major Mejia on 06-05-2023 Creatinine [Mass/Vol] 0.71 mg/dL 0.55-1.02 [facility] Comment on above: The validity of the calculated GFR & GFRAA in patients over 70 years has not been determined. Clinical correlation is essential. Serum or plasma urea nitroge n measurement (mass/volume)Ordered By: Major Mejia on 06-05-2023 Urea nitrogen [Mass/Vol] 3 mg/dL 7-18 [facility] Thin prep Papanicolaou smear with manual screeningOrdered By: Major Mejia on 06-05-2023 Thin prep Papanicolaou smear with manual screening 4 5-15 [facility] Basophil percentageOrdered B y: Harriet Chirinos on 05-17-2023 Chloride [Moles/Vol] 106 mmol/L 98-107 [facility] Glucose [Mass/Vol] 88 mg/dL 74-106 [facility] Potassium [Moles/Vol] 3.6 mmol/L 3.5-5.1 [facility] Comment on above: Slight Hemolysis, Re sult may be falsely increased. Sodium [Moles/Vol] 138 mmol/L 136-145 [facility] Influenza virus A and B and SARS-CoV-2 (COVID-19) Ag panel - Upper respiratory specimOrdered By: Harriet Chirinos on 05-17-2023 SARS-CoV-2 (COVID-19) RNA JYOTI+probe Ql (Resp) [facility] Laboratory - Chemistry and C hemistry - challengeOrdered By: Harriet Chirinos on 05-17-2023 CO2 [Moles/Vol] 24.0 mmol/L 21.0-32.0 [facility] Urea nitrogen/Creatinine [Mass ratio] 12.3 mg/mg 10-20 [facility] No Panel InformationOrdered By: Harriet Chirinos on 05-17-2023 Estimated Creatinine Clearance Calc 76.91 ml/min [facility] Estimated GFR (MDRD) Amer 93 mL/min >60 [facility] Comment on above: GFR Calc Estimated GFR (MDRD) Non-Af Amer 77 mL/min >60 [facility] Comment on above: Non- GFR Calc Serum or plasma calcium omega urement (mass/volume)Ordered By: Harriet Chirinos on 05-17-2023 Calcium [Mass/Vol] 8.9 mg/dL 8.5-10.1 [facility] Serum or plasma creatinine m easurement (mass/volume)Ordered By: Harriet Chirinos on 05-17-2023 Creatinine [Mass/Vol] 0.89 mg/dL 0.55-1.02 [facility] Comment on above: The validity of the calculated GFR & GFRAA in patients over 70 years has not been determined. Clinical correlation is essential. Serum or plasma urea nitroge n measurement (mass/volume)Ordered By: Harriet Chirinos on 05-17-2023 Urea nitrogen [Mass/Vol] 11 mg/dL -18 [facility] Thin prep Papanicolaou smear with manual screeningOrdered By: Harriet Chirinos on 05-17-2023 Thin prep Papanicolaou smear with manual screening 8 5-15 [facility] Absolute lymphocyte countOrd ered By: Dr. Brooks on 01-21-2023 Lymphocytes Auto (Unsp spec) [#/Vol] 2.86 10*3/uL 0.83-4.51 [facility] Basophil percentageOrdered B y: Dr. Brooks on 01-21-2023 Basophil percentage 0 SEEN /hpf 0-5 [facility] Basophils/100 WBC (Bld) 0.4 % 0-1 [facility] Eosinophils/100 WBC (Bld) 0.1 % 0-5 [facility] Neutrophils (Bld) [#/Vol] 7.7 10*3/uL 2.0-7.7 [facility] Neutrophils/100 WBC (Bld) 69.2 % 47-70 [facility] WBC (Bld) [#/Vol] 11.1 10*3/uL 4.4-11.0 [facility] Bilirubin [Mass/Vol] 0.90 mg/dL 0.20-1.00 [facility] Comment on above: For patients on eltr ombopag therapy, use of Dimension [place] TBIL is not recommended. Chloride [Moles/Vol] 108 mmol/L 98-107 [facility] Glucose [Mass/Vol] 114 mg/dL 74-106 [facility] Comment on above: Fasting Glucose resu lt from 100 to 125 mg/dL suggests IMPAIRED HOMEOSTASIS per A.D.A. criteria. Potassium [Moles/Vol] 3.8 mmol/L 3.5-5.1 [facility] Protein [Mass/Vol] 7.7 g/dL 6.4-8.2 [facility] Sodium [Moles/Vol] 139 mmol/L 136-145 [facility] Beta hCG serum qualOrdered B y: Dr. Brooks on 01-21-2023 Beta HCG ( test) Ql Negative [facility] Bilirubin Test strip Ql (U)O rdered By: Dr. Brooks on 01-21-2023 Bilirubin Ql (U) Negative Negative [facility] Blood erythrocytes count (nu mber/volume)Ordered By: Dr. Brooks on 01-21-2023 RBC (Bld) [#/Vol] 4.99 10*6/uL 4.2-5.4 [facility] Blood hemoglobin measurement (mass/volume)Ordered By: Dr. Brooks on 01-21-2023 Hemoglobin (Bld) [Mass/Vol] 13.0 g/dL 12.0-15.0 [facility] Blood lymphocytes/100 leukoc ytesOrdered By: Dr. Brooks on 01-21-2023 Lymphocytes/100 WBC (Bld) 25.7 % 19-41 [facility] Blood monocytes/100 leukocyt esOrdered By: Dr. Brooks on 01-21-2023 Monocytes/100 WBC (Bld) 4.3 % 0-10 [facility] Blood platelet mean volumeOr dered By: Dr. Brooks on 01-21-2023 Platelet mean volume (Bld) [Entitic vol] 10.8 fL 6.2-12.0 [facility] Determination of erythrocyte mean corpuscular volume (MCV)Ordered By: Dr. Brooks on 01-21-2023 MCV (RBC) [Entitic vol] 82.6 fL 81-99 [facility] Hematocrit Auto (Bld) [Volum e fraction]Ordered By: Dr. Brooks on 01-21-2023 Hematocrit (Bld) [Volume fraction] 41.2 % 37-47 [facility] Ketones Test strip Ql (U)Ord ered By: Dr. Brooks on 01-21-2023 Ketones Ql (U) Negative Negative [facility] Laboratory - Chemistry and C hemistry - challengeOrdered By: Dr. Brooks on 01-21-2023 ALP [Catalytic activity/Vol] 74 U/L 45-117 [facility] ALT [Catalytic activity/Vol] 15 U/L 13-56 [facility] CO2 [Moles/Vol] 24.0 mmol/L 21.0-32.0 [facility] Globulin (S) [Mass/Vol] 4.3 g/dL 2.2-4.2 [facility] Lipase [Catalytic activity/Vol] 57 U/L 73-393 [facility] Urea nitrogen/Creatinine [Mass ratio] 8.5 mg/mg 10-20 [facility] Laboratory - Hematology and Cell countsOrdered By: Dr. Brooks on 01-21-2023 Erythrocyte distribution width (RBC) [Entitic vol] 43.9 fL 35.1-43.9 [facility] Erythrocyte distribution width (RBC) [Ratio] 14.7 % 11.6-14.6 [facility] Immature granulocytes/100 WBC (Bld) 0.300 % 0.0-0.9 [facility] Comment on above: IG% - Immature Granu locytes (promyelocytes, myelocytes and metamyelocytes) > 1% indicates that a LEFT SHIFT is Present. MCH (RBC) [Entitic mass] 26.1 pg 27.0-32.0 [facility] Nucleated RBC/100 WBC (Bld) [Ratio] 0 % 0-5 [facility] MCHC Auto (RBC) [Mass/Vol]Or dered By: Dr. Brooks on 01-21-2023 MCHC (RBC) [Mass/Vol] 31.6 g/dL 32-36 [facility] Mucus LM Ql (Urine sed)Order ed By: Dr. Brooks on 01-21-2023 Mucus Ql (Urine sed) 0 SEEN /hpf [facility] Nitrite Test strip Ql (U)Ord ered By: Dr. Brooks on 01-21-2023 Nitrite Ql (U) Negative Negative [facility] No Panel InformationOrdered By: Dr. Brooks on 01-21-2023 Estimated Creatinine Clearance Calc 64.58 ml/min [facility] Estimated GFR (MDRD) Amer 76 mL/min >60 [facility] Comment on above: GFR Calc Estimated GFR (MDRD) Non-Af Amer 63 mL/min >60 [facility] Comment on above: Non- GFR Calc Platelets bldOrdered By: Dr. Brooks on 01-21-2023 Platelets (Bld) [#/Vol] 282 10*3/uL 150-450 [facility] Protein Test strip Ql (U)Ord ered By: Dr. Brooks on 01-21-2023 Protein Ql (U) Negative Negative [facility] Serum or plasma albumin omega urement (mass/volume)Ordered By: Dr. Brooks on 01-21-2023 Albumin [Mass/Vol] 3.4 g/dL 3.2-5.0 [facility] Serum or plasma albumin/glob ulin mass ratioOrdered By: Dr. Brooks on 01-21-2023 Albumin/Globulin [Mass ratio] 0.8 {ratio} 0.9-2.4 [facility] Serum or plasma calcium omega urement (mass/volume)Ordered By: Dr. Brooks on 01-21-2023 Calcium [Mass/Vol] 8.9 mg/dL 8.5-10.1 [facility] Serum or plasma creatinine m easurement (mass/volume)Ordered By: Dr. Brooks on 01-21-2023 Creatinine [Mass/Vol] 1.06 mg/dL 0.55-1.02 [facility] Comment on above: The validity of the calculated GFR & GFRAA in patients over 70 years has not been determined. Clinical correlation is essential. Serum or plasma urea nitroge n measurement (mass/volume)Ordered By: Dr. Brooks on 01-21-2023 Urea nitrogen [Mass/Vol] 9 mg/dL 7-18 [facility] Squamous epithelial cells de tection in urine sediment by light microscopyOrdered By: Dr. Brooks on 01-21-2023 Epithelial cells.squamous LM Ql (Urine sed) 0-5 SEEN /hpf 5-10 [facility] Thin prep Papanicolaou smear with manual screeningOrdered By: Dr. Brooks on 01-21-2023 Thin prep Papanicolaou smear with manual screening 12 U/L 15-37 [facility] Thin prep Papanicolaou smear with manual screening 7 5-15 [facility] Urine blood detectionOrdered By: Dr. Brooks on 01-21-2023 RBC Ql (U) Negative Negative [facility] RBC Ql (U) 0 SEEN /hpf 0-5 [facility] Urine clarityOrdered By: Dr. Brooks on 01-21-2023 Clarity (U) Clear Clear [facility] Urine color determinationOrd ered By: Dr. Brooks on 01-21-2023 Color (U) Straw Yellow [facility] Urine glucose detectionOrder ed By: Dr. Brooks on 01-21-2023 Glucose Ql (U) Normal mg/dl Normal [facility] Urine leukocyte esterase det ection by dipstickOrdered By: Dr. Brooks on 01-21-2023 Leukocyte esterase Test strip Ql (U) Negative Negative [facility] Urine pHOrdered By: Dr. Joey neumann on 01-21-2023 pH (U) 6.5 [pH] 5.0 - 8.0 [facility] Urine sediment bacteria coun t by microscopy (number/high power field)Ordered By: Dr. Brooks on 01-21-2023 Bacteria LM.HPF (Urine sed) [#/Area] 0 /[HPF] None Seen [facility] Urine specific gravity measu rementOrdered By: Dr. Brooks on 01-21-2023 Specific gravity (U) [Rel density] 1.010 1.002-1.030 [facility] Urobilinogen Auto test strip Ql (U)Ordered By: Dr. Brooks on 01-21-2023 Urobilinogen Ql (U) Normal mg/dl Normal [facility] Absolute lymphocyte countOrd ered By: Dr. Taylor on 12-14-2022 Lymphocytes Auto (Unsp spec) [#/Vol] 2.92 10*3/uL 0.83-4.51 [facility] Basophil percentageOrdered B y: Dr. Taylor on 12-14-2022 Basophil percentage 0 SEEN /hpf 0-5 [facility] Basophils/100 WBC (Bld) 0.6 % 0-1 [facility] Bilirubin [Mass/Vol] 0.80 mg/dL 0.20-1.00 [facility] Comment on above: For patients on eltr ombopag therapy, use of Dimension [place] TBIL is not recommended. Chloride [Moles/Vol] 108 mmol/L 98-107 [facility] Eosinophils/100 WBC (Bld) 0.1 % 0-5 [facility] Glucose [Mass/Vol] 98 mg/dL 74-106 [facility] Neutrophils (Bld) [#/Vol] 4.4 10*3/uL 2.0-7.7 [facility] Neutrophils/100 WBC (Bld) 56.1 % 47-70 [facility] Potassium [Moles/Vol] 2.9 mmol/L 3.5-5.1 [facility] Protein [Mass/Vol] 7.5 g/dL 6.4-8.2 [facility] Sodium [Moles/Vol] 142 mmol/L 136-145 [facility] WBC (Bld) [#/Vol] 7.8 10*3/uL 4.4-11.0 [facility] Beta hCG serum qualOrdered B y: Dr. Taylor on 12-14-2022 Beta HCG ( test) Ql Negative [facility] Bilirubin Test strip Ql (U)O rdered By: Dr. Taylor on 12-14-2022 Bilirubin Ql (U) Negative Negative [facility] Blood erythrocytes count (nu mber/volume)Ordered By: Dr. Taylor on 12-14-2022 RBC (Bld) [#/Vol] 4.58 10*6/uL 4.2-5.4 [facility] Blood hemoglobin measurement (mass/volume)Ordered By: Dr. Taylor on 12-14-2022 Hemoglobin (Bld) [Mass/Vol] 11.8 g/dL 12.0-15.0 [facility] Blood lymphocytes/100 leukoc ytesOrdered By: Dr. Taylor on 12-14-2022 Lymphocytes/100 WBC (Bld) 37.2 % 19-41 [facility] Blood monocytes/100 leukocyt esOrdered By: Dr. Taylor on 12-14-2022 Monocytes/100 WBC (Bld) 5.7 % 0-10 [facility] Blood platelet mean volumeOr dered By: Dr. Taylor on 12-14-2022 Platelet mean volume (Bld) [Entitic vol] 10.2 fL 6.2-12.0 [facility] Determination of erythrocyte mean corpuscular volume (MCV)Ordered By: Dr. Taylor on 12-14-2022 MCV (RBC) [Entitic vol] 81.0 fL 81-99 [facility] Hematocrit Auto (Bld) [Volum e fraction]Ordered By: Dr. Taylor on 12-14-2022 Hematocrit (Bld) [Volume fraction] 37.1 % 37-47 [facility] Ketones Test strip Ql (U)Ord ered By: Dr. Taylor on 12-14-2022 Ketones Ql (U) Negative Negative [facility] Laboratory - Chemistry and C hemistry - challengeOrdered By: Dr. Taylor on 12-14-2022 ALP [Catalytic activity/Vol] 65 U/L 45-117 [facility] ALT [Catalytic activity/Vol] 17 U/L 13-56 [facility] CO2 [Moles/Vol] 24.0 mmol/L 21.0-32.0 [facility] Globulin (S) [Mass/Vol] 3.8 g/dL 2.2-4.2 [facility] Lipase [Catalytic activity/Vol] 87 U/L 73-393 [facility] Urea nitrogen/Creatinine [Mass ratio] 9.0 mg/mg 10-20 [facility] Laboratory - Hematology and Cell countsOrdered By: Dr. Taylor on 12-14-2022 Erythrocyte distribution width (RBC) [Entitic vol] 41.3 fL 35.1-43.9 [facility] Erythrocyte distribution width (RBC) [Ratio] 14.1 % 11.6-14.6 [facility] Immature granulocytes/100 WBC (Bld) 0.300 % 0.0-0.9 [facility] Comment on above: IG% - Immature Granu locytes (promyelocytes, myelocytes and metamyelocytes) > 1% indicates that a LEFT SHIFT is Present. MCH (RBC) [Entitic mass] 25.8 pg 27.0-32.0 [facility] Nucleated RBC/100 WBC (Bld) [Ratio] 0 % 0-5 [facility] MCHC Auto (RBC) [Mass/Vol]Or dered By: Dr. Taylor on 12-14-2022 MCHC (RBC) [Mass/Vol] 31.8 g/dL 32-36 [facility] Mucus LM Ql (Urine sed)Order ed By: Dr. Taylor on 12-14-2022 Mucus Ql (Urine sed) 0 SEEN /hpf [facility] Nitrite Test strip Ql (U)Ord ered By: Dr. Taylor on 12-14-2022 Nitrite Ql (U) Negative Negative [facility] No Panel InformationOrdered By: Dr. Taylor on 12-14-2022 Estimated Creatinine Clearance Calc 88.90 ml/min [facility] Estimated GFR (MDRD) Amer 110 mL/min >60 [facility] Comment on above: GFR Calc Estimated GFR (MDRD) Non-Af Amer 91 mL/min >60 [facility] Comment on above: Non- GFR Calc Platelets bldOrdered By: Dr. Taylor on 12-14-2022 Platelets (Bld) [#/Vol] 277 10*3/uL 150-450 [facility] Protein Test strip Ql (U)Ord ered By: Dr. Taylor on 12-14-2022 Protein Ql (U) Negative Negative [facility] Serum or plasma albumin omega urement (mass/volume)Ordered By: Dr. Taylor on 12-14-2022 Albumin [Mass/Vol] 3.7 g/dL 3.2-5.0 [facility] Serum or plasma albumin/glob ulin mass ratioOrdered By: Dr. Taylor on 12-14-2022 Albumin/Globulin [Mass ratio] 1.0 {ratio} 0.9-2.4 [facility] Serum or plasma calcium omega urement (mass/volume)Ordered By: Dr. Taylor on 12-14-2022 Calcium [Mass/Vol] 9.1 mg/dL 8.5-10.1 [facility] Serum or plasma creatinine m easurement (mass/volume)Ordered By: Dr. Taylor on 12-14-2022 Creatinine [Mass/Vol] 0.77 mg/dL 0.55-1.02 [facility] Comment on above: The validity of the calculated GFR & GFRAA in patients over 70 years has not been determined. Clinical correlation is essential. Serum or plasma urea nitroge n measurement (mass/volume)Ordered By: Dr. Taylor on 12-14-2022 Urea nitrogen [Mass/Vol] 7 mg/dL 7-18 [facility] Squamous epithelial cells de tection in urine sediment by light microscopyOrdered By: Dr. Taylor on 12-14-2022 Epithelial cells.squamous LM Ql (Urine sed) 0 SEEN /hpf 5-10 [facility] Thin prep Papanicolaou smear with manual screeningOrdered By: Dr. Taylor on 12-14-2022 Thin prep Papanicolaou smear with manual screening 16 U/L 15-37 [facility] Thin prep Papanicolaou smear with manual screening 10 5-15 [facility] Urine blood detectionOrdered By: Dr. Taylor on 12-14-2022 RBC Ql (U) Negative Negative [facility] RBC Ql (U) 0 SEEN /hpf 0-5 [facility] Urine clarityOrdered By: Dr. Taylor on 12-14-2022 Clarity (U) Clear Clear [facility] Urine color determinationOrd ered By: Dr. Taylor on 12-14-2022 Color (U) Yellow Yellow [facility] Urine glucose detectionOrder ed By: Dr. Taylor on 12-14-2022 Glucose Ql (U) Normal mg/dl Normal [facility] Urine leukocyte esterase det ection by dipstickOrdered By: Dr. Taylor on 12-14-2022 Leukocyte esterase Test strip Ql (U) Negative Negative [facility] Urine pHOrdered By: Dr. Miguel miranda on 12-14-2022 pH (U) 6.5 [pH] 5.0 - 8.0 [facility] Urine sediment bacteria coun t by microscopy (number/high power field)Ordered By: Dr. Taylor on 12-14-2022 Bacteria LM.HPF (Urine sed) [#/Area] 0 /[HPF] None Seen [facility] Urine specific gravity measu rementOrdered By: Dr. Taylor on 12-14-2022 Specific gravity (U) [Rel density] 1.010 1.002-1.030 [facility] Urobilinogen Auto test strip Ql (U)Ordered By: Dr. Taylor on 12-14-2022 Urobilinogen Ql (U) Normal mg/dl Normal [facility] Basic metabolic 2000 panelon 12-03-2022 Anion gap [Moles/Vol] 11 mmol/L Normal 9-18 [facility] Comment on above: Order Comment: Speci men Type: BLOOD SPECIMEN Ordering Facility: [facility] Address: [address] [place], [place] [id number] Performed By: #### 2 43211-06, 2157-04 #### [facility] CLIA [id number] [address] [place] [address] [place] Calcium [Mass/Vol] 9.0 mg/dL Normal 8.5-10.2 [facility] Comment on above: Order Comment: Speci men Type: BLOOD SPECIMEN Ordering Facility: [facility] Address: [address] [place], [place] [id number] Performed By: #### 2 43211-06, 2157-04 #### [facility] CLIA [id number] [address] [place] [address] [place] Chloride [Moles/Vol] 106 mmol/L High 97-105 [facility] Comment on above: Order Comment: Speci men Type: BLOOD SPECIMEN Ordering Facility: [facility] Address: [address] [place] [address] Performed By: #### 2 4320-12, 2157-04 #### [facility] CLIA [id number] [address] [place] [address] [place] CO2 [Moles/Vol] 21 mmol/L Low 22-30 [facility] Comment on above: Order Comment: Speci men Type: BLOOD SPECIMEN Ordering Facility: [facility] Address: [address] [place] [address] Performed By: #### 2 4320-12, 2157-04 #### [facility] CLIA [id number] [address] [place] [address] [place] Creatinine [Mass/Vol] 0.67 mg/dL Normal 0.58-0.96 [facility] Comment on above: Order Comment: Speci men Type: BLOOD SPECIMEN Ordering Facility: [facility] Address: [address] [place] [address] Performed By: #### 2 4320-12, 2157-04 #### [facility] CLIA [id number] [address] [place] [address] [place] ESTIMATED GLOMERULAR FILTRATION RATE 119 mL/min/1.73m??? Normal >=60 [facility] Comment on above: Order Comment: Speci men Type: BLOOD SPECIMEN Ordering Facility: [facility] Address: [address] [place] [address] Result Comment: Zoya mated Glomerular Filtration Rate [...] Performed By: #### 2 432-, 2157-04 #### [facility] CLIA [id number] [address] [place] [address] [place] Glucose [Mass/Vol] 107 mg/dL High 74-99 [facility] Comment on above: Order Comment: Juana davis Type: BLOOD SPECIMEN Ordering Facility: [facility] Address: [address] [place] [address] Result Comment: The [place] [employer] (ADA) provides guidance for cutoff [...] Standards of Medical Care in Diabetes 2016, [place] [employer]. Diabetes Care. 2016.39(Suppl 1). Performed By: #### 2 4320-, 2157-04 #### [facility] CLIA [id number] [address] [place] [address] [place] Potassium [Moles/Vol] 3.7 mmol/L Normal 3.7-5.1 [facility] Comment on above: Order Comment: Juana davis Type: BLOOD SPECIMEN Ordering Facility: [facility] Address: [place] [address] Performed By: #### 2 4320-12, 2157-04 #### [facility] CLIA [id number] [address] [place] [address] [place] Sodium [Moles/Vol] 138 mmol/L Normal 136-144 [facility] Comment on above: Order Comment: Juana davis Type: BLOOD SPECIMEN Ordering Facility: [facility] Address: [address] [place] [address] Performed By: #### 2 4320-12, 2157-04 #### [facility] CLIA [id number] [address] [place] [address] [place] Urea nitrogen [Mass/Vol] 7 mg/dL Normal 7-21 [facility] Comment on above: Order Comment: Speci men Type: BLOOD SPECIMEN Ordering Facility: [facility] Address: [address] [address] Performed By: #### 2 4321-2, 2157-6 #### [facility] CLIA [id number] [address] [place] [address] [place] CBC W Auto Differential pane l (Bld)on 12-03-2022 Basophils (Bld) [#/Vol] 10*3/uL Normal <0.11 [facility] Comment on above: Order Comment: Speci men Type: BLOOD SPECIMEN Ordering Facility: [facility] Address: [address] [place] [address] Performed By: #### 5 7021-8 #### [facility] CLIA [id number] [address] [place] [address] [place] Basophils/100 WBC (Bld) 0.3 % Normal [facility] Comment on above: Order Comment: Speci men Type: BLOOD SPECIMEN Ordering Facility: [facility] Address: [address] [address] Performed By: #### 5 7021-8 #### [facility] CLIA [id number] [address] [place] Differential cell count method Nom (Bld) Auto Normal [facility] Comment on above: Order Comment: Speci men Type: BLOOD SPECIMEN Ordering Facility: [facility] Address: [address] [address] Performed By: #### 5 7021-8 #### [facility] CLIA [id number] [address] [place] [address] [place] Eosinophils (Bld) [#/Vol] 10*3/uL Normal <0.46 [facility] Comment on above: Order Comment: Speci men Type: BLOOD SPECIMEN Ordering Facility: [facility] Address: [address] [address] Performed By: #### 5 7021-8 #### [facility] CLIA [id number] [address] [place] [address] [place] Eosinophils/100 WBC (Bld) 0.0 % Normal [facility] Comment on above: Order Comment: Speci men Type: BLOOD SPECIMEN Ordering Facility: [facility] Address: [address] [place] [address] Performed By: #### 5 7021-8 #### [facility] CLIA [id number] [address] [place] [address] [place] Erythrocyte distribution width (RBC) [Ratio] 13.9 % Normal 11.5-15.0 [facility] Comment on above: Order Comment: Speci men Type: BLOOD SPECIMEN Ordering Facility: [facility] Address: [address] [place] [address] Performed By: #### 5 7021-8 #### [facility] CLIA [id number] [address] [place] [address] [place] Hematocrit (Bld) [Volume fraction] 36.7 % Normal 36.0-46.0 [facility] Comment on above: Order Comment: Speci men Type: BLOOD SPECIMEN Ordering Facility: [facility] Address: [address] [place] [address] Performed By: #### 5 7021-8 #### [facility] CLIA [id number] [address] [place] [address] [place] Hemoglobin (Bld) [Mass/Vol] 11.7 g/dL Normal 11.5-15.5 [facility] Comment on above: Order Comment: Speci men Type: BLOOD SPECIMEN Ordering Facility: [facility] Address: [address] [place] [address] Performed By: #### 5 7021-8 #### [facility] CLIA [id number] [address] [place] [address] [place] Immature granulocytes (Bld) [#/Vol] 10*3/uL Normal <0.10 [facility] Comment on above: Order Comment: Speci men Type: BLOOD SPECIMEN Ordering Facility: [facility] Address: [address] [place] [address] Performed By: #### 5 7021-8 #### [facility] CLIA [id number] [address] [place] [address] Immature granulocytes/100 WBC (Bld) 0.1 % Normal [facility] Comment on above: Order Comment: Speci men Type: BLOOD SPECIMEN Ordering Facility: [facility] Address: [address] [place] [address] Performed By: #### 5 7021-8 #### [facility] CLIA [id number] [address] [place] Lymphocytes (Bld) [#/Vol] 2.29 10*3/uL Normal 1.00-4.00 [facility] Comment on above: Order Comment: Speci men Type: BLOOD SPECIMEN Ordering Facility: [facility] Address: [address] [place] [address] Performed By: #### 5 7021-8 #### [facility] CLIA [id number] [address] [place] [address] Lymphocytes/100 WBC (Bld) 30.1 % Normal [facility] Comment on above: Order Comment: Speci men Type: BLOOD SPECIMEN Ordering Facility: [facility] Address: [address] [place] [address] Performed By: #### 5 7021-8 #### [facility] CLIA [id number] [address] [place] [address] [place] MCH (RBC) [Entitic mass] 25.7 pg Low 26.0-34.0 [facility] Comment on above: Order Comment: Speci men Type: BLOOD SPECIMEN Ordering Facility: [facility] Address: [address] [place] [address] Performed By: #### 5 7021-8 #### [facility] CLIA [id number] [address] MCHC (RBC) [Mass/Vol] 31.9 g/dL Normal 30.5-36.0 [facility] Comment on above: Order Comment: Speci men Type: BLOOD SPECIMEN Ordering Facility: [facility] Address: [address] [place] [address] Performed By: #### 5 7021-8 #### [facility] CLIA [id number] [address] [place] [address] [place] MCV (RBC) [Entitic vol] 80.7 fL Normal 80.0-100.0 [facility] Comment on above: Order Comment: Speci men Type: BLOOD SPECIMEN Ordering Facility: [facility] Address: [address] [place] [address] Performed By: #### 5 7021-8 #### [facility] CLIA [id number] [address] [place] [address] [place] Monocytes (Bld) [#/Vol] 0.49 10*3/uL Normal <0.87 [facility] Comment on above: Order Comment: Speci men Type: BLOOD SPECIMEN Ordering Facility: [facility] Address: [address] [place] [address] Performed By: #### 5 7021-8 #### [facility] CLIA [id number] [address] [place] [address] [place] Monocytes/100 WBC (Bld) 6.4 % Normal [facility] Comment on above: Order Comment: Speci men Type: BLOOD SPECIMEN Ordering Facility: [facility] Address: [address] [place] [address] Performed By: #### 5 7021-8 #### [facility] CLIA [id number] [address] [place] [address] [place] Neutrophils (Bld) [#/Vol] 4.80 10*3/uL Normal 1.45-7.50 [facility] Comment on above: Order Comment: Speci men Type: BLOOD SPECIMEN Ordering Facility: [facility] Address: [address] [place] [address] Performed By: #### 5 7021-8 #### [facility] CLIA [id number] [address] [place] [address] [place] Neutrophils/100 WBC (Bld) 63.1 % Normal [facility] Comment on above: Order Comment: Speci men Type: BLOOD SPECIMEN Ordering Facility: [facility] Address: [address] [place] [address] Performed By: #### 5 7021-8 #### [facility] CLIA [id number] [address] [place] [address] [place] Nucleated RBC (Bld) [#/Vol] Normal [facility] Comment on above: Order Comment: Speci men Type: BLOOD SPECIMEN Ordering Facility: [facility] Address: [address] [place] [address] Performed By: #### 5 7021-8 #### [facility] [facility] CLIA [id number] [address] [place] [address] [place] Nucleated RBC/100 WBC (Bld) [Ratio] Normal [facility] Comment on above: Order Comment: Speci men Type: BLOOD SPECIMEN Ordering Facility: [facility] Address: [address] [place] [address] Performed By: #### 5 7021-8 #### [facility] CLIA [id number] [address] [place] [address] [place] Platelet mean volume (Bld) [Entitic vol] 9.7 fL Normal 9.0-12.7 [facility] Comment on above: Order Comment: Speci men Type: BLOOD SPECIMEN Ordering Facility: [facility] Address: [address] [place] [address] Performed By: #### 5 7021-8 #### [facility] CLIA [id number] [address] [place] [address] [place] Platelets (Bld) [#/Vol] 227 10*3/uL Normal 150-400 [facility] Comment on above: Order Comment: Speci men Type: BLOOD SPECIMEN Ordering Facility: [facility] Address: [address] [place], [place] [address] Performed By: #### 5 7021-8 #### [facility] CLIA [id number] [address] [place] [address] [facility] RBC (Bld) [#/Vol] 4.55 10*6/uL Normal 3.90-5.20 [facility] Comment on above: Order Comment: Speci men Type: BLOOD SPECIMEN Ordering Facility: [facility] Address: [address] [place] [address] Performed By: #### 5 7021-8 #### [facility] CLIA [id number] [address] WBC (Bld) [#/Vol] 7.61 10*3/uL Normal 3.70-11.00 [facility] Comment on above: Order Comment: Speci men Type: BLOOD SPECIMEN Ordering Facility: [facility] Address: [address] [place] [address] Performed By: #### 5 7021-8 #### [facility] CLIA [id number] [address] [place] [address] CK SerPl-cCncon 12-03-2022 CK [Catalytic activity/Vol] 75 U/L Normal 42-196 [facility] Comment on above: Order Comment: Speci men Type: BLOOD SPECIMEN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 Estimated GFR (MDRD) Amer 85 mL/min >60 [facility] Comment on above: GFR Calc Estimated GFR (MDRD) Non-Af Amer 70 mL/min >60 [facility] Comment on above: Non- GFR Calc Platelets bldOrdered By: Dr. Fair on 08-18-2022 Platelets (Bld) [#/Vol] 225 10*3/uL 150-450 [facility] Protein Test strip Ql (U)Ord ered By: Dr. Fair on 08-18-2022 Protein Ql (U) Negative Negative [facility] Serum or plasma albumin omega urement (mass/volume)Ordered By: Dr. Fair on 08-18-2022 Albumin [Mass/Vol] 3.4 g/dL 3.2-5.0 [facility] Serum or plasma albumin/glob ulin mass ratioOrdered By: Dr. Fair on 08-18-2022 Albumin/Globulin [Mass ratio] 0.7 {ratio} 0.9-2.4 [facility] Serum or plasma calcium omega urement (mass/volume)Ordered By: Dr. Fair on 08-18-2022 Calcium [Mass/Vol] 9.2 mg/dL 8.5-10.1 [facility] Serum or plasma creatinine m easurement (mass/volume)Ordered By: Dr. Fair on 08-18-2022 Creatinine [Mass/Vol] 0.97 mg/dL 0.55-1.02 [facility] Comment on above: The validity of the calculated GFR & GFRAA in patients over 70 years has not been determined. Clinical correlation is essential. Serum or plasma urea nitroge n measurement (mass/volume)Ordered By: Dr. Fair on 08-18-2022 Urea nitrogen [Mass/Vol] 8 mg/dL - [facility] Squamous epithelial cells de tection in urine sediment by light microscopyOrdered By: Dr. Fair on 08-18-2022 Epithelial cells.squamous LM Ql (Urine sed) 0-5 SEEN /hpf - [facility] Comment on above: Previous reported re sult: 0 SEEN /hpfEdited by: PHYLLIS on 08/18/22:1711 AMENDED REPORT 08/18/221711 SQUAM EPI previously reported as: 0 SEEN /hpf Thin prep Papanicolaou smear with manual screeningOrdered By: Dr. Fair on 08-18-2022 Thin prep Papanicolaou smear with manual screening 12 U/L 15-37 [facility] Thin prep Papanicolaou smear with manual screening 7 - [facility] Urine blood detectionOrdered By: Dr. Fair on 08-18-2022 RBC Ql (U) Negative Negative [facility] RBC Ql (U) 0-5 SEEN /hpf 0-5 [facility] Comment on above: Previous reported re sult: 0 SEEN /hpfEdited by: PHYLLIS on 08/18/22:1711 AMENDED REPORT 10/14/22 1711 RBC-UA previously reported as: 0 SEEN /hpf Urine clarityOrdered By: Dr. Fair on 08-18-2022 Clarity (U) Clear Clear [facility] Urine color determinationOrd ered By: Dr. Fair on 08-18-2022 Color (U) Yellow Yellow [facility] Urine glucose detectionOrder ed By: Dr. Fair on 08-18-2022 Glucose Ql (U) Normal mg/dl Normal [facility] Urine leukocyte esterase det ection by dipstickOrdered By: Dr. Fair on 08-18-2022 Leukocyte esterase Test strip Ql (U) Negative Negative [facility] Urine pHOrdered By: Dr. Fair o n 08-18-2022 pH (U) 7.0 [pH] 5.0 - 8.0 [facility] Urine sediment bacteria coun t by microscopy (number/high power field)Ordered By: Dr. Fair on 08-18-2022 Bacteria LM.HPF (Urine sed) [#/Area] RARE /hpf None Seen [facility] Comment on above: Previous reported re sult: 0 SEEN /hpfEdited by: PHYLLIS on 08/18/22:1712 AMENDED REPORT 08/18/22 171 BACTERIA previously reported as: 0 SEEN /hpf Urine specific gravity measu rementOrdered By: Dr. Fair on 08-18-2022 Specific gravity (U) [Rel density] 1.010 1.002-1.030 [facility] Urobilinogen Auto test strip Ql (U)Ordered By: Dr. Fair on 08-18-2022 Urobilinogen Ql (U) Normal mg/dl Normal [facility] Cult,Urineon 03-27-2019 Cult,Urine Specimen Description .URINE Special Requests NOT REPORTED Culture NO SIGNIFICANT GROWTH Report Status FINAL 03/27/2019 Normal [facility] Comment on above: Performed By: #### C DP, CP #### [facility] [address] [place] [address] CBC with Diffon 03-26-2019 Auto Diff Performed YES Normal [facility] Comment on above: Performed By: #### C DP, CP #### [facility] [address] [place] [address] Abs. Basophil 0.10 k/uL Normal 0.0-0.2 [facility] Comment on above: Performed By: #### C DP, CP #### [facility] [address] [facility] [place] [address] Abs.Neutrophil (Seg) 9.50 k/uL High 2.5-7.0 [facility] Comment on above: Performed By: #### C DP, CP #### [facility] [address] [place] [address] Basophils/100 WBC (Bld) 1 % Normal 0-2 [facility] Comment on above: Performed By: #### C DP, CP #### [facility] [address] [place] [address] Eosinophils #/vol (Bld) 0.30 10*3/uL Normal 0.0-0.4 [facility] Comment on above: Performed By: #### C DP, CP #### [facility] [address] [place] [address] Eosinophils/100 WBC (Bld) 3 % Normal 0-5 [facility] Comment on above: Performed By: #### C DP, CP #### [facility] [address] [place] [address] Lymphocytes #/vol (Bld) 1.60 10*3/uL Normal 1.0-4.8 [facility] Comment on above: Performed By: #### C DP, CP #### [facility] [address] [place] [address] Lymphocytes/100 WBC (Bld) 13 % Low 15-40 [facility] Comment on above: Performed By: #### C DP, CP #### [facility] [address] [place] [address] Monocytes #/vol (Bld) 0.50 10*3/uL Normal 0.0-1.0 [facility] Comment on above: Performed By: #### C DP, CP #### [facility] [address] [facility] [place] [address] Monocytes/100 WBC (Bld) 4 % Normal 4-8 [facility] Comment on above: Performed By: #### C DP, CP #### [facility] [address] [place] [address] Neutrophil (Seg) 79 % High 47-75 [facility] Comment on above: Performed By: #### C DP, CP #### [facility] [address] [place] [address] Erythrocyte distribution width Ratio (RBC) 14.3 % Normal 12.1-15.2 [facility] Comment on above: Performed By: #### C DP, CP #### [facility] [address] [place] [address] Hematocrit Volume Fraction (Bld) 38.7 % Normal 36-46 [facility] Comment on above: Performed By: #### C DP, CP #### [facility] [address] [place] [address] Hemoglobin mass conc (Bld) 12.3 g/dL Normal 12.0-16.0 [facility] Comment on above: Performed By: #### C DP, CP #### [facility] [address] [place] [address] MCH Entitic mass (RBC) 24.9 pg Low 26-34 [facility] Comment on above: Performed By: #### C DP, CP #### [facility] [address] [place] [address] MCHC mass conc (RBC) 31.8 g/dL Normal 31-37 [facility] Comment on above: Performed By: #### C DP, CP #### [facility] [address] [place] [address] MCV Entitic volume (RBC) 78.5 fL Low 80-100 [facility] Comment on above: Performed By: #### C DP, CP #### [facility] [address] [place] [address] Platelets #/vol (Bld) 302 10*3/uL Normal 140-450 [facility] Comment on above: Performed By: #### C DP, CP #### [facility] [address] [place] [address] RBC #/vol (Bld) 4.93 10*6/uL Normal 4.0-5.2 [facility] Comment on above: Performed By: #### C DP, CP #### [facility] [address] [place] [address] WBC #/vol (Bld) 12.5 10*3/uL High 3.5-11.0 [facility] Comment on above: Performed By: #### C DP, CP #### [facility] [address] [place] [address] Abs.Imm.Granulocyte NOT REPORTED Normal 0.00-0.30 [facility] Comment on above: Performed By: #### C DP, CP #### [facility] [address] [place] [address] Immature granulocytes #/vol (Bld) NOT REPORTED Normal 0 [facility] Comment on above: Performed By: #### C DP, CP #### [facility] [address] [place] [address] NRBC Automated NOT REPORTED Normal [facility] Comment on above: Performed By: #### C DP, CP #### [facility] [address] [place] [address] Platelet mean volume Entitic volume (Bld) NOT REPORTED Normal [facility] Comment on above: Performed By: #### C DP, CP #### [facility] [address] [place] [address] [phone] Platelets #/vol (Bld) NOT REPORTED Normal [facility] Comment on above: Performed By: #### C DP, CP #### [facility] [address] [place] [address] ([phone] RBC morphology finding Nom (Bld) NOT REPORTED Normal [facility] Comment on above: Performed By: #### C DP, CP #### [facility] [address] [place] [address] ([phone] WBC Morphology NOT REPORTED Normal [facility] Comment on above: Performed By: #### C DP, CP #### [facility] [address] [place] [address] ([phone]) Comp Metabolic Profon 2018 (cont.) Normal [facility] Comment on above: Result Comment: Aver age GFR for 30-39 years old: 107 mL/min/1.73sq m Chronic Kidney Disease: <60 mL/min/1.73sq m Kidney failure: <15 mL/min/1.73sq m eGFR calculated using average adult body mass. Additional eGFR calculator available at: http://www.[employer].Coderwall/multiple_crcl_2012.htm Performed By: #### U SAMEERA Ortiz #### [facility] [address] [place] [address] [phone] Albumin mass conc 4.5 g/dL Normal 3.5-5.2 [facility] Comment on above: Performed By: #### U SAMEERA Ortiz #### [facility] [address] [place] [address] ([phone] Alkaline Phos 86 U/L Normal 35-104 [facility] Comment on above: Performed By: #### U A UMSTEFFO #### [facility] [address] [place] [address] ([phone] ALT enzyme act/vol 9 U/L Normal 5-33 [facility] Comment on above: Performed By: #### U A, UMICAO #### [facility] [address] [place] [address] Anion gap molar conc 13 mmol/L Normal 9-17 [facility] Comment on above: Performed By: #### U A, UMICAO #### [facility] [address] [place] [address] AST enzyme act/vol 11 U/L Normal <32 [facility] Comment on above: Performed By: #### U A, UMICAO #### [facility] [address] [place] [address] Bilirubin Ql (U) 1.13 mg/dL Normal 0.30-1.20 [facility] Comment on above: Performed By: #### U Angel, UMICAO #### [facility] [address] [place] [address] BUN/CRE Ratio 7 Low 9-20 [facility] Comment on above: Performed By: #### U Angel UMICAO #### [facility] [address] [place] [address] Calcium mass conc 9.6 mg/dL Normal 8.6-10.4 [facility] Comment on above: Performed By: #### U Angel, UMICAO #### [facility] [address] [place] [address] Chloride molar conc 104 mmol/L Normal 98-107 [facility] Comment on above: Performed By: #### U A, UMICAO #### [facility] [address] [place] [address] CO2 molar conc 23 mmol/L Normal 20-31 [facility] Comment on above: Performed By: #### U A, UMICAO #### [facility] [address] [place] [address] Creatinine mass conc 0.70 mg/dL Normal 0.50-0.90 [facility] Comment on above: Performed By: #### SAMEERA Carcamo #### [facility] [address] [place] [address] GFR, Amer >60 Normal >60 [facility] Comment on above: Performed By: #### SAMEERA Carcamo #### [facility] [address] [place] [address] GFR,non Amer >60 Normal >60 [facility] Comment on above: Performed By: #### SAMEERA Carcamo #### [facility] [address] [place] [address] Glucose mass conc 154 mg/dL High 70-99 [facility] Comment on above: Performed By: #### SAMEERA Carcamo #### [facility] [address] [place] [address] Potassium molar conc 4.0 mmol/L Normal 3.7-5.3 [facility] Comment on above: Performed By: #### SAMEERA Carcamo #### [facility] [address] [place] [address] Protein mass conc 8.4 g/dL High 6.4-8.3 [facility] Comment on above: Performed By: #### SAMEERA Carcamo #### [facility] [address] [place] [address] Sodium molar conc 140 mmol/L Normal 135-144 [facility] Comment on above: Performed By: #### SAMEERA Carcamo #### [facility] [address] [place] [address] Urea nitrogen mass conc 5 mg/dL Low 6-20 [facility] Comment on above: Performed By: #### SAMEERA Carcamo #### [facility] [address] [place] [address] ([phone] Albumin/Globulin mass ratio NOT REPORTED Normal 1.0-2.5 [facility] Comment on above: Performed By: #### SAMEERA Carcamo #### [facility] [address] [place] [address] ([phone] Staging: NOT REPORTED Normal [facility] Comment on above: Performed By: #### SAMEERA Carcamo #### [facility] [address] [facility] [place] [address] Diff Methodon 03-26-2019 Diff Method AUTO Normal [facility] Comment on above: Performed By: #### C DP, CP #### [facility] [address] [facility] [place] [address] HCG Screen, Bloodon 03-26-20 19 HCG Qn Negative Normal NEG [facility] Comment on above: Result Comment: Spec imens with hCG levels near the threshold of the test (25 mIU/mL) may give a negative or indeterminate result. In such cases, another test should be performed with a new specimen in 48-72 hours. If early is suspected clinically in this setting, correlation with quantitative serum b-hCG level is suggested. [facility] has confirmed the use of plasma for this test. This has not been cleared or approved by the U.S. Food and Drug Administration. The FDA has determined that such clearance is not necessary. Performed By: #### SAMEERA Carcamo #### [facility] [address] [facility] [place] [address] [phone] Lactic Acidon 03-26-2019 Lactate molar conc 1.4 mmol/L Normal 0.5-2.2 [facility] Comment on above: Performed By: #### SAMEERA Carcamo #### [facility] [address] [place] [address] [phone] Lactate molar conc NOT REPORTED Normal 0.7-2.1 [facility] Comment on above: Performed By: #### SAMEERA Carcamo #### [facility] [address] [facility] [place] [address] Lipaseon 03-26-2019 Lipase enzyme act/vol 17 U/L Normal 13-60 [facility] Comment on above: Performed By: #### U SAMEERA Ortiz #### [facility] [address] [place] [address] Urinalysis w/ Microon 2018 ----- Normal [facility] Comment on above: Performed By: #### C DP, CP #### [facility] [address] [place] [address] Bacteria LM.HPF #/area (Urine sed) 2+ Abnormal NONE [facility] Comment on above: Performed By: #### C DP, CP #### [facility] [address] [place] [address] Epithelial cells LM.HPF #/area (Urine sed) 5 TO 10 Normal [facility] Comment on above: Performed By: #### C DP, CP #### [facility] [address] [place] [address] Mucus Strands 3+ Abnormal NONE [facility] Comment on above: Performed By: #### C DP, CP #### [facility] [address] [place] [address] RBC #/vol (U) 0 TO 2 Normal 0-2 [facility] Comment on above: Performed By: #### C DP, CP #### [facility] [address] [place] [address] WBC #/vol (U) 5 TO 10 Normal 0 [facility] Comment on above: Performed By: #### C DP, CP #### [facility] [address] [place] [address] Acetoacetic Acid,Ur Negative Normal NEG [facility] Comment on above: Performed By: #### C DP, CP #### [address] [place] [id number] Bilirubin, SemiQt,Ur Negative Normal NEG [facility] Comment on above: Performed By: #### C DP, CP #### [facility] [address] [facility] [place] [address] Color Nom (U) YELLOW Normal YEL [facility] Comment on above: Performed By: #### C DP, CP #### [facility] [address] [place] [address] Comment Normal [facility] Comment on above: Performed By: #### C DP, CP #### [facility] [address] [place] [address] Glucose,Semi-qnt,Ur Negative Normal NEG [facility] Comment on above: Performed By: #### C DP, CP #### [facility] [address] [place] [address] Hemoglobin, Ur TRACE Abnormal NEG [facility] Comment on above: Performed By: #### C DP, CP #### [facility] [address] [place] [address] Leuckocyte Esterase 2+ Abnormal NEG [facility] Comment on above: Performed By: #### C DP, CP #### [facility] [address] [place] [address] Nitrite,Ur Negative Normal NEG [facility] Comment on above: Performed By: #### C DP, CP #### [facility] [address] [place] [address] PH,Ur 5.0 Normal 5.0-8.0 [facility] Comment on above: Performed By: #### C DP, CP #### [facility] [address] [place] [address] Protein mass conc (U) Negative Normal NEG [facility] Comment on above: Performed By: #### C DP, CP #### [facility] [address] [place] [address] Spec. [place],Ur 1.020 Normal 1.005-1.030 [facility] Comment on above: Performed By: #### C DP, CP #### [facility] [address] [facility] [place] [address] Turbidity HAZY Abnormal CLEAR [facility] Comment on above: Performed By: #### C DP, CP #### [facility] [address] [facility] [place] [address] Urobilinogen,Ur Normal Normal NORM [facility] Comment on above: Performed By: #### C DP, CP #### [facility] [address] [facility] [place] [address] Amorphous sediment LM Ql (Urine sed) NOT REPORTED Normal NONE [facility] Comment on above: Performed By: #### C DP, CP #### [facility] [address] [facility] [place] [address] Casts LM.LPF #/area (Urine sed) NOT REPORTED Normal [facility] Comment on above: Performed By: #### C DP, CP #### [facility] [address] [facility] [place] [address] Crystals LM Nom (Urine sed) NOT REPORTED Normal NONE [facility] Comment on above: Performed By: #### C DP, CP #### [facility] [address] [facility] [place] [address] Epithelial, Renal NOT REPORTED Normal 0 [facility] Comment on above: Performed By: #### C DP, CP #### [facility] [address] [facility] [place] [address] Other Observations NOT REPORTED Normal NREQ [facility] Comment on above: Performed By: #### C DP, CP #### [facility] [address] [place] [address] Trichomonas NOT REPORTED Normal NONE [facility] Comment on above: Performed By: #### C DP, CP #### [facility] [address] [place] [address] Yeast LM Ql (Urine sed) NOT REPORTED Normal NONE [facility] Comment on above: Performed By: #### C DP, CP #### [facility] [address] [place] [address] Amylaseon 03-18-2019 Amylase enzyme act/vol 51 U/L Normal 30 - 110 [facility] Comment on above: Performed By: #### L IPASE, CMP, AMYLASE #### [facility] [address] [place] [address] CBC W Auto Differentialon Abs Neut # 5.9 10 X 3/mm Normal 1.8 - 7.7 [facility] Comment on above: Performed By: #### C BC Auto Diff #### [facility] [address] [place] [address] Basophils/100 WBC (Bld) 1 % Normal 0 - 1 [facility] Comment on above: Performed By: #### C BC Auto Diff #### [facility] [address] [place] [address] Eosinophils #/vol (Bld) 0.7 10 X 3/mm High 0.0 - 0.5 [facility] Comment on above: Performed By: #### C BC Auto Diff #### [facility] [address] [place] [address] Eosinophils/100 WBC (Bld) 7 % High 0 - 5 [facility] Comment on above: Performed By: #### C BC Auto Diff #### [facility] [address] [place] [address] Erythrocyte distribution width Ratio (RBC) 17.5 % High 11.5 - 14.5 [facility] Comment on above: Performed By: #### C BC Auto Diff #### [id number] [place] [address] Hematocrit Volume Fraction (Bld) 39.0 % Normal 36.0 - 47.0 [facility] Comment on above: Performed By: #### C BC Auto Diff #### [address] [address] Hemoglobin mass conc (Bld) 12.4 g/dL Normal 12.0 - 16.0 [facility] Comment on above: Performed By: #### C BC Auto Diff #### [address] [address] Lymphocytes #/vol (Bld) 2.2 10 X 3/mm Normal 1.0 - 4.0 [facility] Comment on above: Performed By: #### C BC Auto Diff #### [address] [address] Lymphocytes/100 WBC (Bld) 23 % Normal 20 - 40 [facility] Comment on above: Performed By: #### C BC Auto Diff #### [address] [address] MCH Entitic mass (RBC) 24.7 pg Low 27.0 - 35.0 [facility] Comment on above: Performed By: #### C BC Auto Diff #### [address] [address] MCHC mass conc (RBC) 31.9 g/dL Low 32.0 - 36.0 [facility] Comment on above: Performed By: #### C BC Auto Diff #### [address] [address] MCV Entitic volume (RBC) 77.4 fL Low 80.0 - 100.0 [facility] Comment on above: Performed By: #### C BC Auto Diff #### [address] [place] [address] Monocytes/100 WBC (Bld) 7 % Normal 1 - 15 [facility] Comment on above: Performed By: #### C BC Auto Diff #### [address] [place] [address] Neutrophils/100 WBC (Bld) 62 % Normal 50 - 70 [facility] Comment on above: Performed By: #### C BC Auto Diff #### [address] [place] [address] Platelet mean volume Entitic volume (Bld) 9.0 fL Normal 7.5 - 11.5 [facility] Comment on above: Performed By: #### C BC Auto Diff #### [address] [place] [address] Platelets #/vol (Bld) 285 uLx10 Normal 150 - 450 [facility] Comment on above: Performed By: #### C BC Auto Diff #### [address] [place] [address] RBC #/vol (Bld) 5.03 10 X 6/mm Normal 4.20 - 5.40 [facility] Comment on above: Performed By: #### C BC Auto Diff #### [address] [place] [address] WBC #/vol (Bld) 9.5 10 X 3/mm Normal 3.7 - 11.[address] [facility] Comment on above: Performed By: #### C BC Auto Diff #### [address] [place] [address] CT ABD/PELVIS WOon 9 CT ABD/PELVIS WO [...] electronically signed by: Dr. Fernie Elliott Normal [facility] Comprehensive Metabolic Pane guille 03-18-2019 GFR/1.73 sq M predicted among non-blacks MDRD vol rate/area (S/P/Bld) 125.24 Normal [facility] Comment on above: Result Comment: eGFR Interpretation: Normal: Equal to or greater than 60 mL/min/1.73 meters squared Chronic Kidney Disease: Less than 60 mL/min/1.73 meters squared Kidney Failure: Less than 15 mL/min/1.73 meters squared Performed By: #### L IPASE, CMP, AMYLASE #### [id number] [place] [address] GFR/1.73 sq M predicted among non-blacks MDRD vol rate/area (S/P/Bld) 118.9 Normal [facility] Comment on above: Result Comment: eGFR Interpretation: Normal: Equal to or greater than 60 mL/min/1.73 meters squared Chronic Kidney Disease: Less than 60 mL/min/1.73 meters squared Kidney Failure: Less than 15 mL/min/1.73 meters squared Performed By: #### L IPASE, CMP, AMYLASE #### [address] [place] [address] GFR/1.73 sq M predicted among non-blacks MDRD vol rate/area (S/P/Bld) 129.74 Normal [facility] Comment on above: Result Comment: eGFR Interpretation: Normal: Equal to or greater than 60 mL/min/1.73 meters squared Chronic Kidney Disease: Less than 60 mL/min/1.73 meters squared Kidney Failure: Less than 15 mL/min/1.73 meters squared Performed By: #### L IPASE, CMP, AMYLASE #### [address] [address] GFR/1.73 sq M predicted among non-blacks MDRD vol rate/area (S/P/Bld) 192.10 [facility] Comment on above: Performed By: #### L IPASE, CMP, AMYLASE #### [address] [address] GFR/1.73 sq M predicted among non-blacks MDRD vol rate/area (S/P/Bld) 166.17 Normal [facility] Comment on above: Result Comment: eGFR Interpretation: Normal: Equal to or greater than 60 mL/min/1.73 meters squared Chronic Kidney Disease: Less than 60 mL/min/1.73 meters squared Kidney Failure: Less than 15 mL/min/1.73 meters squared Performed By: #### L IPASE, CMP, AMYLASE #### [address] [address] GFR/1.73 sq M predicted among non-blacks MDRD vol rate/area (S/P/Bld) 137.09 [facility] Comment on above: Performed By: #### L IPASE, CMP, AMYLASE #### [address] [place] [address] GFR/1.73 sq M predicted among non-blacks MDRD vol rate/area (S/P/Bld) 144.37 Normal [facility] Comment on above: Performed By: #### L IPASE, CMP, AMYLASE #### [facility] [address] [place] [address] GFR/1.73 sq M predicted among non-blacks MDRD vol rate/area (S/P/Bld) 149.98 Normal [facility] Comment on above: Performed By: #### L IPASE, CMP, AMYLASE #### [address] [address] Age Reported 28 year(s) Normal [facility] Comment on above: Performed By: #### L IPASE, CMP, AMYLASE #### [address] [address] Albumin mass conc 4.3 g/dL Normal 3.5 - 5.0 [facility] Comment on above: Performed By: #### L IPASE, CMP, AMYLASE #### [address] [place] [address] ALP enzyme act/vol 80 U/L Normal 38 - [address] [facility] Comment on above: Performed By: #### L IPASE, CMP, AMYLASE #### [address] [place] [address] ALT enzyme act/vol 28 U/L Normal 0 - [address] [facility] Comment on above: Performed By: #### L IPASE, CMP, AMYLASE #### [address] [place] [address] AST enzyme act/vol 35 U/L Normal 14 - [address] [facility] Comment on above: Performed By: #### L IPASE, CMP, AMYLASE #### [address] [place] [address] Bilirubin mass conc 1.2 mg/dL Normal 0.2 - 1.3 [facility] Comment on above: Performed By: #### L IPASE, CMP, AMYLASE #### [address] [place] [address] Calcium mass conc 9.5 mg/dL Normal 8.4 - 10.2 [facility] Comment on above: Performed By: #### L IPASE, CMP, AMYLASE #### [address] [address] Chloride molar conc 102 mmol/L Normal 98 - 107 [facility] Comment on above: Performed By: #### L IPASE, CMP, AMYLASE #### [address] [address] CO2 molar conc 23 mmol/L Normal 22 - 32 [facility] Comment on above: Performed By: #### L IPASE, CMP, AMYLASE #### [address] [address] Creatinine mass conc 0.66 mg/dL Normal 0.52 - 1.04 [facility] Comment on above: Performed By: #### L IPASE, CMP, AMYLASE #### [address] [address] Glucose mass conc 87 mg/dL Normal 65 - 100 [facility] Comment on above: Performed By: #### L IPASE, CMP, AMYLASE #### [address] [address] Potassium molar conc 4.6 mmol/L Normal 3.6 - 5.0 [facility] Comment on above: Performed By: #### L IPASE, CMP, AMYLASE #### [address] [address] Protein mass conc 7.7 g/dL Normal 6.3 - 8.2 [facility] Comment on above: Performed By: #### L IPASE, CMP, AMYLASE #### [facility] [address] [place] [address] Sodium molar conc 136 mmol/L Normal 135 - 145 [facility] Comment on above: Performed By: #### L IPASE, CMP, AMYLASE #### [address] [address] Urea nitrogen mass conc 6 mg/dL Low 7 - 17 [facility] Comment on above: Performed By: #### L IPASE, CMP, AMYLASE #### [address] [address] Lipaseon 03-18-2019 Lipase enzyme act/vol 81 U/L Normal 23 - 300 [facility] Comment on above: Performed By: #### L IPASE, CMP, AMYLASE #### [address] [address] hCG, Qualitative-Serumon Internal Control ACCEPTABLE Normal [facility] Comment on above: Performed By: #### H CG,QUAL SERUM #### [address] [address] hCG, Qualitative-Serum Negative Normal NEGATIVE [facility] Comment on above: Performed By: #### H CG,QUAL SERUM #### [address] [place] [address] Age at specimen collection = Normal [facility] Comment on above: Performed By: #### H CG,QUAL SERUM #### [address] [address] Performed By: #### C BC Auto Diff #### [address] [place], [place] [id number] Performed By: #### L IPASE, CMP, AMYLASE #### [address] [place], [place] [id number] CBCon 02-26-2019 ABSOLUTE BAS 0.1 X10 Normal [facility] Comment on above: Performed By: #### A CBC ####Testing performed at [address] [address] ABSOLUTE EOS 0.10 X10 Normal [facility] Comment on above: Performed By: #### A CBC ####Testing performed at [address] [address] ABSOLUTE NEUTROPHIL COUNT 6.2 x10 Normal 1.0-7.0 [facility] Comment on above: Performed By: #### A CBC ####Testing performed at [address] [address] Basophils/100 WBC (Bld) 1.2 % Normal 0.0-2.0 [facility] Comment on above: Performed By: #### A CBC ####Testing performed at [address] [address] DTYPE AUTO DIFF Normal [facility] Comment on above: Performed By: #### A CBC ####Testing performed at [address] [address] Eosinophils/100 WBC (Bld) 1.5 % Normal 0.0-11.0 [facility] Comment on above: Performed By: #### A CBC ####Testing performed at [address] [address] Lymphocytes #/vol (Bld) 2.40 X10 Normal [facility] Comment on above: Performed By: #### A CBC ####Testing performed at [address] [address] Lymphocytes/100 WBC (Bld) 25.7 % Normal 20.0-55.0 [facility] Comment on above: Performed By: #### A CBC ####Testing performed at [address] [address] Monocytes #/vol (Bld) 0.5 X10 Normal [facility] Comment on above: Performed By: #### A CBC ####Testing performed at [address] [address] Monocytes/100 WBC (Bld) 5.2 % Normal 0.0-10.0 [facility] Comment on above: Performed By: #### A CBC ####Testing performed at [address] [address] Neutrophils/100 WBC (Bld) 66.4 % Normal 37.0-75.0 [facility] Comment on above: Performed By: #### A CBC ####Testing performed at [address] [address] Erythrocyte distribution width Ratio (RBC) 17.6 % High 11.5-14.5 [facility] Comment on above: Performed By: #### A CBC ####Testing performed at [address] [address] Hematocrit Volume Fraction (Bld) 36.7 % Normal 36.0-48.0 [facility] Comment on above: Performed By: #### A CBC ####Testing performed at [address] [address] Hemoglobin mass conc (Bld) 11.8 g/dL Low 12.0-16.0 [facility] Comment on above: Performed By: #### A CBC ####Testing performed at [address] [address] MCH Entitic mass (RBC) 24.5 pg Low 26.0-35.0 [facility] Comment on above: Performed By: #### A CBC ####Testing performed at [address] [place] [id number] MCHC mass conc (RBC) 32.3 g/dL Normal 27.0-37.0 [facility] Comment on above: Performed By: #### A CBC ####[place] [address] MCV Entitic volume (RBC) 75.9 fL Low 80.0-100.0 [facility] Comment on above: Performed By: #### A CBC ####[place] [address] Platelet mean volume Entitic volume (Bld) 8.1 fL Normal 7.4-11.0 [facility] Comment on above: Performed By: #### A CBC ####[place] [address] Platelets #/vol (Bld) 320 /cmm Normal 130.0-400.0 [facility] Comment on above: Performed By: #### A CBC ####[place] [address] RBC #/vol (Bld) 4.83 /cmm Normal 4.0-5.4 [facility] Comment on above: Performed By: #### A CBC ####[place] [address] WBC #/vol (Bld) 9.3 /cmm Normal 3.6-11.0 [facility] Comment on above: Performed By: #### A CBC ####[place] [address] CMP FASTINGon 02-26-2019 A:G RATIO 1.2 RATIO Low 1.3-2.2 [facility] Comment on above: Performed By: #### A CBC ####Testing performed at [address] [place] [address] Albumin mass conc 4.6 G/dl Normal 3.5-5.0 [facility] Comment on above: Performed By: #### A CBC ####Testing performed at [address] [address] ALP enzyme act/vol 85 U/L Normal 38-126 [facility] Comment on above: Performed By: #### A CBC ####Testing performed at [address] [address] ALT enzyme act/vol 17 U/L Normal 9-52 [facility] Comment on above: Performed By: #### A CBC ####Testing performed at [address] [id number] AST enzyme act/vol 22 U/L Normal 14-36 [facility] Comment on above: Performed By: #### A CBC ####Testing performed at [address] [address] Bilirubin mass conc 1.0 mg/dL Normal 0.2-1.3 [facility] Comment on above: Performed By: #### A CBC ####Testing performed at [address] [address] Calcium mass conc 9.3 mg/dL Normal 8.4-10.2 [facility] Comment on above: Performed By: #### A CBC ####Testing performed at [address] [address] Chloride molar conc 102 mmol/L Normal 98-107 [facility] Comment on above: Result Comment: Plea se note: Triglyceride levels of 600mg/dL or higher may positively bias chloride results by approximately 2.1 mmol Performed By: #### A CBC ####Testing performed at [address] [address] CO2 molar conc 27 mmol/L Normal 22-30 [facility] Comment on above: Performed By: #### A CBC ####Testing performed at [address] [address] Creatinine mass conc 0.8 mg/dL Normal 0.7-1.2 [facility] Comment on above: Performed By: #### A CBC ####Testing performed at [address] [address] EST. GFR, >60 Normal [facility] Comment on above: Performed By: #### A CBC ####Testing performed at [address] [address] EST. GFR,Non >60 Normal [facility] Comment on above: Performed By: #### A CBC ####Testing performed at [address] [address] GFR/1.73 sq M predicted among non-blacks MDRD vol rate/area (S/P/Bld) Average GFR for 30-39 years old = 109. Normal [facility] Comment on above: Result Comment: Repair Supervisor frantz Kidney disease, GFR = <60. Kidney failure, GFR = <15. The GFR estimate is not adjusted for extreme body surface area or acute process, nor has it been validated for women or ethnic groups other than and . Performed By: #### A CBC ####Testing performed at [address] [address] Glucose mass conc 91 mg/dL Normal 70-100 [facility] Comment on above: Result Comment: NORMAL <100 mg/dL PREDIABETES 101-126 mg/dL DIABETES 126 mg/dL or higher Performed By: #### A CBC ####Testing performed at [address] [address] Potassium molar conc 4.0 mmol/L Normal 3.5-5.1 [facility] Comment on above: Performed By: #### A CBC ####Testing performed at [address] [address] Protein mass conc 8.4 g/dL High 6.3-8.2 [facility] Comment on above: Performed By: #### A CBC ####Testing performed at [address] [address] Sodium molar conc 139 mmol/L Normal 137-145 [facility] Comment on above: Performed By: #### A CBC ####Testing performed at [address] [address] Urea nitrogen mass conc 8 mg/dL Normal 7-20 [facility] Comment on above: Performed By: #### A CBC ####Testing performed at [address] [address] ESRon 02-26-2019 ESR Velocity (Bld) 59 mm/h High 0-15 [facility] LIPASE,SERUMon 02-26-2019 LIPASE,SERUM 53 U/L Normal 23-300 [facility] Comment on above: Performed By: #### A CBC ####Testing performed at [address] [address] CBCon 02-18-2019 ABSOLUTE BAS 0.1 X10 Normal [facility] Comment on above: Performed By: #### A CBC, CMPF ####Testing performed at [address] [address] ABSOLUTE EOS 0.40 X10 Normal [facility] Comment on above: Performed By: #### A CBC, CMPF ####Testing performed at [address] [address] ABSOLUTE NEUTROPHIL COUNT 5.4 x10 Normal 1.0-7.0 [facility] Comment on above: Performed By: #### A CBC, CMPF ####Testing performed at [address] [address] Basophils/100 WBC (Bld) 0.6 % Normal 0.0-2.0 [facility] Comment on above: Performed By: #### A CBC, CMPF ####Testing performed at [place] [address] [facility] [address] DTYPE AUTO DIFF Normal [facility] Comment on above: Performed By: #### A CBC, CMPF ####Testing performed at [address] [place] [address] Eosinophils/100 WBC (Bld) 4.0 % Normal 0.0-11.0 [facility] Comment on above: Performed By: #### A CBC, CMPF ####Testing performed at [address] [place] [address] Lymphocytes #/vol (Bld) 2.30 X10 Normal [facility] Comment on above: Performed By: #### A CBC, CMPF ####Testing performed at [address] [place] [address] Lymphocytes/100 WBC (Bld) 26.0 % Normal 20.0-55.0 [facility] Comment on above: Performed By: #### A CBC, CMPF ####Testing performed at [address] [place] [address] Monocytes #/vol (Bld) 0.6 X10 Normal [facility] Comment on above: Performed By: #### A CBC, CMPF ####Testing performed at [address] [place] [address] Monocytes/100 WBC (Bld) 7.1 % Normal 0.0-10.0 [facility] Comment on above: Performed By: #### A CBC, CMPF ####Testing performed at [address] [place] [address] Neutrophils/100 WBC (Bld) 62.3 % Normal 37.0-75.0 [facility] Comment on above: Performed By: #### A CBC, CMPF ####Testing performed at [address] [place] [address] Erythrocyte distribution width Ratio (RBC) 17.1 % High 11.5-14.5 [facility] Comment on above: Performed By: #### A CBC, CMPF ####Testing performed at [address] [address] Hematocrit Volume Fraction (Bld) 36.7 % Normal 36.0-48.0 [facility] Comment on above: Performed By: #### A CBC, CMPF ####Testing performed at [address] [address] Hemoglobin mass conc (Bld) 11.8 g/dL Low 12.0-16.0 [facility] Comment on above: Performed By: #### A CBC, CMPF ####Testing performed at [address] [address] MCH Entitic mass (RBC) 24.5 pg Low 26.0-35.0 [facility] Comment on above: Performed By: #### A CBC, CMPF ####Testing performed at [address] [address] MCHC mass conc (RBC) 32.2 g/dL Normal 27.0-37.0 [facility] Comment on above: Performed By: #### A CBC, CMPF ####Testing performed at [address] [address] MCV Entitic volume (RBC) 75.9 fL Low 80.0-100.0 [facility] Comment on above: Performed By: #### A CBC, CMPF ####Testing performed at [address] [address] Platelet mean volume Entitic volume (Bld) 8.2 fL Normal 7.4-11.0 [facility] Comment on above: Performed By: #### A CBC, CMPF ####Testing performed at [address] [address] Platelets #/vol (Bld) 283 /cmm Normal 130.0-400.0 [facility] Comment on above: Performed By: #### A CBC, CMPF ####Testing performed at [address] [address] RBC #/vol (Bld) 4.83 /cmm Normal 4.0-5.4 [facility] Comment on above: Performed By: #### A CBC, CMPF ####Testing performed at [address] [address] WBC #/vol (Bld) 8.8 /cmm Normal 3.6-11.0 [facility] Comment on above: Performed By: #### A CBC, CMPF ####Testing performed at [address] [address] CMP FASTINGon 02-18-2019 Potassium molar conc 3.8 mmol/L Normal 3.5-5.1 [facility] Comment on above: Performed By: #### A CBC, CMPF ####Testing performed at [address] [address] A:G RATIO 1.2 RATIO Low 1.3-2.2 [facility] Comment on above: Performed By: #### A CBC, CMPF ####Testing performed at [address] [address] Albumin mass conc 4.6 G/dl Normal 3.5-5.0 [facility] Comment on above: Performed By: #### A CBC, CMPF ####Testing performed at [address] [address] ALP enzyme act/vol 78 U/L Normal 38-126 [facility] Comment on above: Performed By: #### A CBC, CMPF ####Testing performed at [address] [address] ALT enzyme act/vol 18 U/L Normal 9-52 [facility] Comment on above: Performed By: #### A CBC, CMPF ####Testing performed at [address] [address] AST enzyme act/vol 18 U/L Normal 14-36 [facility] Comment on above: Performed By: #### A CBC, CMPF ####Testing performed at [address] [address] Bilirubin mass conc 1.1 mg/dL Normal 0.2-1.3 [facility] Comment on above: Performed By: #### A CBC, CMPF ####Testing performed at [address] [address] Calcium mass conc 9.0 mg/dL Normal 8.4-10.2 [facility] Comment on above: Performed By: #### A CBC, CMPF ####Testing performed at [address] [address] Chloride molar conc 104 mmol/L Normal 98-107 [facility] Comment on above: Result Comment: Plea note: Triglyceride levels of 600mg/dL or higher may positively bias chloride results by approximately 2.1 mmol Performed By: #### A CBC, CMPF ####Testing performed at [address] [address] CO2 molar conc 26 mmol/L Normal 22-30 [facility] Comment on above: Performed By: #### A CBC, CMPF ####Testing performed at [address] [address] Creatinine mass conc 1.1 mg/dL Normal 0.7-1.2 [facility] Comment on above: Performed By: #### A CBC, CMPF ####Testing performed at [address] [address] EST. GFR, >60 Normal [facility] Comment on above: Performed By: #### A CBC, CMPF ####Testing performed at [address] [address] EST. GFR,Non >60 Normal [facility] Comment on above: Performed By: #### A CBC, CMPF ####[place] [address] GFR/1.73 sq M predicted among non-blacks MDRD vol rate/area (S/P/Bld) Average GFR for 30-39 years old = 109. Normal [facility] Comment on above: Result Comment: Repair Supervisor frantz Kidney disease, GFR = <60. Kidney failure, GFR = <15. The GFR estimate is not adjusted for extreme body surface area or acute process, nor has it been validated for women or ethnic groups other than and . Performed By: #### A CBC, CMPF ####[place] [address] Glucose mass conc 79 mg/dL Normal 70-100 [facility] Comment on above: Result Comment: NORMAL <100 mg/dL PREDIABETES 101-126 mg/dL DIABETES 126 mg/dL or higher Performed By: #### A CBC, CMPF ####[place] [address] Protein mass conc 8.3 g/dL High 6.3-8.2 [facility] Comment on above: Performed By: #### A CBC, CMPF ####Testing performed at [place] [id number] Sodium molar conc 142 mmol/L Normal 137-145 [facility] Comment on above: Performed By: #### A CBC, CMPF ####[place] [address] Urea nitrogen mass conc 6 mg/dL Low 7-20 [facility] Comment on above: Performed By: #### A CBC, CMPF ####Testing performed at [place] [id number] CT ABDOMEN/PELVIS WITHOUT CO NTRASTon 02-18-2019 CT [...] abdomen and pelvis. 3. Prior cholecystectomy. Normal [facility] ESRon 02-18-2019 ESR Velocity (Bld) 49 mm/h High 0-15 [facility] Comment on above: Performed By: #### E SR ####[place] [address] URINE CULTUREon 02-18-2019 Bacteria identified Cx Nom (U) SPECIMEN DESCRIPTION URINE CLEAN CATCH UA DIPSTICK LEUKOCYTE POSITIVE * Result Note: NITRITE NEGATIVE * CULTURE NO GROWTH 1 DAY * Result Note: Testing performed at [place] [address] * REPORT STATUS PENDING Normal [facility] Comment on above: Performed By: #### A URNC ####Testing performed at [place] [id number] performed at [place] [id number] URINE HCG QUALon 02-18-2019 HCG.beta subunit ( test) Ql (U) Negative Normal [facility] Comment on above: Performed By: #### U HCGT ####Testing performed at [address] [address] URINE MACROSCOPICon 02-19-20 19 Bilirubin Ql (U) Negative Normal NEGATIVE [facility] Comment on above: Performed By: #### U HCGT ####Testing performed at [address] [address] Clarity Nom (U) CLEAR Normal CLEAR [facility] Comment on above: Performed By: #### U HCGT ####Testing performed at [address] [address] Color Nom (U) YELLOW Normal YELLOW [facility] Comment on above: Performed By: #### U HCGT ####Testing performed at [address] [address] Glucose Ql (U) Negative Normal NEGATIVE [facility] Comment on above: Performed By: #### U HCGT ####Testing performed at [address] [place] [address] pH (U) 5.5 [pH] Normal 5.0-7.0 [facility] Comment on above: Performed By: #### U HCGT ####Testing performed at [address] [address] Protein mass conc (U) Negative Normal NEGATIVE [facility] Comment on above: Performed By: #### U HCGT ####Testing performed at [address] [place] [address] URINE HEMOGLOBIN TRACE-LYSED Abnormal NEGATIVE [facility] Comment on above: Performed By: #### U HCGT ####Testing performed at [address] [place] [address] URINE KETONE Negative Normal NEGATIVE [facility] Comment on above: Performed By: #### U HCGT ####Testing performed at [address] [address] URINE LEUKOTEST TRACE Abnormal NEGATIVE [facility] Comment on above: Performed By: #### U HCGT ####Testing performed at [address] [address] URINE NITRATES Negative Normal NEGATIVE [facility] Comment on above: Performed By: #### U HCGT ####Testing performed at [address] [address] URINE SPEC GRAVITY 1.020 Normal 1.010-1.025 [facility] Comment on above: Performed By: #### U HCGT ####Testing performed at [address] [address] Urobilinogen Qn (U) 0.2 mg/dl Normal 0.2-1.0 [facility] Comment on above: Performed By: #### U HCGT ####Testing performed at [address] [address] URINE MICROSCOPICon 02-19-20 19 Bacteria LM.HPF #/area (Urine sed) TRACE Abnormal NEGATIVE [facility] Comment on above: Performed By: #### U HCGT ####Testing performed at [address] [address] Casts LM.LPF #/area (Urine sed) NONE Normal [facility] Comment on above: Performed By: #### U HCGT ####Testing performed at [address] [address] CRYSTAL NONE Normal [facility] Comment on above: Performed By: #### U HCGT ####Testing performed at [address] [address] Epithelial cells LM.HPF #/area (Urine sed) 1 TO 5 Normal [facility] Comment on above: Performed By: #### U HCGT ####Testing performed at [address] [place] [address] Mucus Ql (Urine sed) Negative Normal NEGATIVE [facility] Comment on above: Performed By: #### U HCGT ####Testing performed at [address] [address] RBC #/vol (U) 1 TO 5 Normal NEGATIVE [facility] Comment on above: Performed By: #### U HCGT ####Testing performed at [address] [address] URINE COMMENT REFLEX CULTURE PER ESTABLISHED CRITERIA. Normal [facility] Comment on above: Performed By: #### U HCGT ####Testing performed at [address] [address] WBC #/vol (U) 1 TO 5 Normal NEGATIVE [facility] Comment on above: Performed By: #### U HCGT ####Testing performed at [address] [address] Organism ID w/ Sension 02-09 Organism ID w/ Sensi Specimen Descriptio n .FECES Special Requests NOT REPORTED Culture NO SHIGELLA SP. ISOLATED Nucleic acid detected, but organism was not recovered in culture. Susceptibility testing cannot be performed. Report Status FINAL 02/08/2019 [facility] Comment on above: Performed By: #### C DP #### [place] [id number] [place], [place] [id number] #### JULIO [facility] #### [facility] [address] [place] [address] Stool PCR [place] 02-10-20 19 Shigella sp PCR Positive Abnormal [facility] Comment on above: Result Comment: Analytical studies [...] performed. Performed By: #### C DP #### [address] [address] #### TROPI, BMP #### [address] [place] [address] CBC with Diffon 02-08-2019 Abs. Basophil 0.04 k/uL Normal 0.00-0.20 [facility] Comment on above: Performed By: #### C DP #### [address] [address] #### TROPI, BMP #### [address] [place] [address] Abs.Imm.Granulocyte 0.05 k/uL Normal 0.00-0.30 [facility] Comment on above: Performed By: #### C DP #### [address] [address] #### TROPI, BMP #### [address] [place] [address] Abs.Neutrophil (Seg) 5.19 k/uL Normal 1.50-8.10 [facility] Comment on above: Performed By: #### C DP #### [address] [address] #### TROPI, BMP #### [address] [place] [address] Basophils/100 WBC (Bld) 1 % Normal 0-2 [facility] Comment on above: Performed By: #### C DP #### [address] [address] #### TROPI, BMP #### [address] [place] [address] Eosinophils #/vol (Bld) 10*3/uL Normal 0.00-0.44 [facility] Comment on above: Performed By: #### C DP #### [address] [address] #### TROPI, BMP #### [address] [place] [address] Eosinophils/100 WBC (Bld) 0 % Low 1-4 [facility] Comment on above: Performed By: #### C DP #### [address] [address] #### TROPI, BMP #### [address] [place] [address] Erythrocyte distribution width Ratio (RBC) 15.6 % High 11.8-14.4 [facility] Comment on above: Performed By: #### C DP #### [address] [address] #### TROPI, BMP #### [address] [place] [address] Hematocrit Volume Fraction (Bld) 37.1 % Normal 36.3-47.1 [facility] Comment on above: Performed By: #### C DP #### [address] [address] #### TROPI, BMP #### [address] [place] [address] Hemoglobin mass conc (Bld) 11.2 g/dL Low 11.9-15.1 [facility] Comment on above: Performed By: #### C DP #### [address] [address] #### TROPI, BMP #### [address] [place] [address] Immature granulocytes #/vol (Bld) 1 % High 0 [facility] Comment on above: Performed By: #### C DP #### [address] [address] #### TROPI, BMP #### [address] [place] [address] Lymphocytes #/vol (Bld) 2.13 10*3/uL Normal 1.10-3.70 [facility] Comment on above: Performed By: #### C DP #### [address] [address] #### TROPI, BMP #### [address] [place] [id number] Lymphocytes/100 WBC (Bld) 27 % Normal 24-43 [facility] Comment on above: Performed By: #### C DP #### [address] [address] #### TROPI, BMP #### [address] [place] [address] MCH Entitic mass (RBC) 24.3 pg Low 25.2-33.5 [facility] Comment on above: Performed By: #### C DP #### [address] [address] #### TROPI, BMP #### [address] [place] [address] MCHC mass conc (RBC) 30.2 g/dL Normal 28.4-34.8 [facility] Comment on above: Performed By: #### C DP #### [address] [address] #### TROPI, BMP #### [address] [place] [address] MCV Entitic volume (RBC) 80.7 fL Low 82.6-102.9 [facility] Comment on above: Performed By: #### C DP #### [address] [address] #### TROPI, BMP #### [address] [place] [address] Monocytes #/vol (Bld) 0.45 10*3/uL Normal 0.10-1.[address] [facility] Comment on above: Performed By: #### C DP #### [address] [address] #### TROPI, BMP #### [address] [place] [address] Monocytes/100 WBC (Bld) 6 % Normal 3-12 [facility] Comment on above: Performed By: #### C DP #### [address] [address] #### TROPI, BMP #### [address] [place] [address] Neutrophil (Seg) 65 % Normal 36-65 [facility] Comment on above: Performed By: #### C DP #### [address] [address] #### TROPI, BMP #### [address] [place] [address] NRBC Automated 0.0 per 100 WBC Normal 0.0 [facility] Comment on above: Performed By: #### C DP #### [address] [address] #### TROPI, BMP #### [address] [place] [address] Platelet mean volume Entitic volume (Bld) 10.5 fL Normal 8.1-13.5 [facility] Comment on above: Performed By: #### C DP #### [address] [address] #### TROPI, BMP #### [address] [place] [address] Platelets #/vol (Bld) 258 10*3/uL Normal 138-453 [facility] Comment on above: Performed By: #### C DP #### [address] [address] #### TROPI, BMP #### [address] [place] [address] RBC #/vol (Bld) 4.60 10*6/uL Normal 3.95-5.11 [facility] Comment on above: Performed By: #### C DP #### [address] [address] #### TROPI, BMP #### [address] [place] [address] WBC #/vol (Bld) 7.9 10*3/uL Normal 3.5-11.3 [facility] Comment on above: Performed By: #### C DP #### [address] [address] #### TROPI, BMP #### [address] [place] [address] Auto Diff Performed NOT REPORTED [facility] Comment on above: Performed By: #### C DP #### [address] [address] #### TROPI, BMP #### [address] [place] [address] Platelets #/vol (Bld) NOT REPORTED Normal [facility] Comment on above: Performed By: #### C DP #### [address] [address] #### TROPI, BMP #### [address] [place] [address] RBC morphology finding Nom (Bld) NOT REPORTED Normal [facility] Comment on above: Performed By: #### C DP #### [address] [address] #### TROPI, BMP #### [address] [place] [address] WBC Morphology NOT REPORTED Normal [facility] Comment on above: Performed By: #### C DP #### [address] [address] #### TROPI, BMP #### [address] [place] [address] Comp Metabolic Pr/rfx MGon 0 - Potassium molar conc 3.5 mmol/L Low 3.7-5.3 [facility] Comment on above: Performed By: #### C DP #### [address] [address] #### TROPI, BMP #### [address] [place] [address] (cont.) Normal [facility] Comment on above: Result Comment: Aver age GFR for 30-39 years old: 107 mL/min/1.73sq m Chronic Kidney Disease: <60 mL/min/1.73sq m Kidney failure: <15 mL/min/1.73sq m eGFR calculated using average adult body mass. Additional eGFR calculator available at: http://www.[employer].com/multiple_crcl_2012.htm Performed By: #### C DP #### [address] [address] #### TROPI, BMP #### [address] [place] [address] Albumin mass conc 4.0 g/dL Normal 3.5-5.2 [facility] Comment on above: Performed By: #### C DP #### [address] [address] #### TROPI, BMP #### [address] [place] [address] Albumin/Globulin mass ratio 1.2 {ratio} Normal 1.0-2.5 [facility] Comment on above: Performed By: #### C DP #### [address] [address] #### TROPI, BMP #### [address] [place] [address] Alkaline Phos 88 U/L Normal 35-104 [facility] Comment on above: Performed By: #### C DP #### [address] [address] #### TROPI, BMP #### [address] [place] [address] ALT enzyme act/vol 9 U/L Normal 5-33 [facility] Comment on above: Performed By: #### C DP #### [address] [address] #### TROPI, BMP #### [address] [place] [address] Anion gap molar conc 11 mmol/L Normal 9-17 [facility] Comment on above: Performed By: #### C DP #### [address] [address] #### TROPI, BMP #### [address] [place] [address] AST enzyme act/vol 10 U/L Normal <32 [facility] Comment on above: Performed By: #### C DP #### [address] [address] #### TROPI, BMP #### [address] [place] [address] Bilirubin Ql (U) 0.66 mg/dL Normal 0.3-1.2 [facility] Comment on above: Performed By: #### C DP #### [address] [address] #### TROPI, BMP #### [address] [place] [address] BUN/CRE Ratio 11 Normal 9-20 [facility] Comment on above: Performed By: #### C DP #### [address] [address] #### TROPI, BMP #### [address] [place] [address] Calcium mass conc 9.4 mg/dL Normal 8.6-10.4 [facility] Comment on above: Performed By: #### C DP #### [address] [address] #### TROPI, BMP #### [address] [place] [address] Chloride molar conc 104 mmol/L Normal 98-107 [facility] Comment on above: Performed By: #### C DP #### [address] [address] #### TROPI, BMP #### [address] [place] [address] CO2 molar conc 26 mmol/L Normal 20-31 [facility] Comment on above: Performed By: #### C DP #### [address] [address] #### TROPI, BMP #### [address] [place] [address] Creatinine mass conc 0.74 mg/dL Normal 0.50-0.90 [facility] Comment on above: Performed By: #### C DP #### [address] [address] #### TROPI, BMP #### [address] [place] [address] GFR, Amer >60 Normal >60 [facility] Comment on above: Performed By: #### C DP #### [address] [address] #### TROPI, BMP #### [address] [place] [address] GFR,non Amer >60 Normal >60 [facility] Comment on above: Performed By: #### C DP #### [address] [address] #### TROPI, BMP #### [address] [place] [address] Glucose mass conc 115 mg/dL High 70-99 [facility] Comment on above: Performed By: #### C DP #### [address] [address] #### TROPI, BMP #### [address] [place] [address] Protein mass conc 7.3 g/dL Normal 6.4-8.3 [facility] Comment on above: Performed By: #### C DP #### [address] [address] #### TROPI, BMP #### [address] [place] [address] Sodium molar conc 141 mmol/L Normal 135-144 [facility] Comment on above: Performed By: #### C DP #### [address] [address] #### TROPI, BMP #### [address] [place] [address] Staging: Normal [facility] Comment on above: Result Comment: Stag e 1: Some kidney damage normal GFR Stage 2: Mild kidney damage GFR 60-89 Stage 3: Moderate kidney damage GFR 30-59 Stage 4: Severe kidney damage GFR 15-29 Stage 5: Severe kidney damage GFR <15 ESRD - chronic treatment by dialysis or transplant Performed By: #### C DP #### [address] [address] #### TROPI, BMP #### [address] [place] [address] Urea nitrogen mass conc 8 mg/dL Normal 6-20 [facility] Comment on above: Performed By: #### C DP #### [address] [address] #### TROPI, BMP #### [address] [place] [address] HCG, ,Urineon 02-08 HCG.beta subunit ( test) Ql (U) Negative Normal NEG [facility] Comment on above: Result Comment: Spec imens with hCG levels near the threshold of the test (25 mIU/mL) may give a negative or indeterminate result. In such cases, another test should be performed with a new specimen in 48-72 hours. If early is suspected clinically in this setting, correlation with quantitative serum b-hCG level is suggested. [facility] has confirmed the use of plasma for this test. This has not been cleared or approved by the U.S. Food and Drug Administration. The FDA has determined that such clearance is not necessary. Performed By: #### C DP #### [address] [address] #### TROPI, BMP #### [address] [place] [address] Magnesiumon 02-08-2019 Magnesium mass conc 2.0 mg/dL Normal 1.6-2.6 [facility] Comment on above: Performed By: #### C DP #### [address] [address] #### TROPI, BMP #### [address] [place] [address] Sedimentation Rateon 019 Sedimentation Rate 36 mm High 0-20 [facility] Comment on above: Performed By: #### C DP #### [address] [address] #### TROPI, BMP #### [address] [place] [address] Urinalysis, Routineon 2018 Acetoacetic Acid,Ur Negative Normal NEG [facility] Comment on above: Performed By: #### C DP #### [address] [address] #### TROPI, BMP #### [address] [place] [address] Bilirubin, SemiQt,Ur Negative Normal NEG [facility] Comment on above: Performed By: #### C DP #### [address] [address] #### TROPI, BMP #### [address] [place] [address] Color Nom (U) YELLOW Normal YEL [facility] Comment on above: Performed By: #### C DP #### [address] [address] #### TROPI, BMP #### [address] [place] [address] Glucose,Semi-qnt,Ur Negative Normal NEG [facility] Comment on above: Performed By: #### C DP #### [address] [address] #### TROPI, BMP #### [address] [place] [address] Hemoglobin, Ur Negative Normal NEG [facility] Comment on above: Performed By: #### C DP #### [address] [address] #### TROPI, BMP #### [address] [place] [address] Leuckocyte Esterase TRACE Abnormal NEG [facility] Comment on above: Performed By: #### C DP #### [address] [address] #### TROPI, BMP #### [address] [place] [address] Nitrite,Ur Negative Normal NEG [facility] Comment on above: Performed By: #### C DP #### [address] [address] #### TROPI, BMP #### [address] [place] [address] PH,Ur 6.0 Normal 5.0-9.0 [facility] Comment on above: Performed By: #### C DP #### [address] [address] #### TROPI, BMP #### [address] [place] [address] Protein mass conc (U) Negative Normal NEG [facility] Comment on above: Performed By: #### C DP #### [address] [address] #### TROPI, BMP #### [address] [place] [address] Spec. [place],Ur <1.005 Low 1.010-1.020 [facility] Comment on above: Performed By: #### C DP #### [address] [address] #### TROPI, BMP #### [address] [place] [address] Turbidity CLEAR Normal CLEAR [facility] Comment on above: Performed By: #### C DP #### [address] [address] #### TROPI, BMP #### [address] [place] [address] Urobilinogen,Ur Normal Normal NORM [facility] Comment on above: Performed By: #### C DP #### [address] [address] #### TROPI, BMP #### [address] [place] [address] Comment NOT REPORTED Normal [facility] Comment on above: Performed By: #### C DP #### [address] [address] #### TROPI, BMP #### [address] [place] [address] Urinalysis,Microon 9 ----- Normal [facility] Comment on above: Performed By: #### C DP #### [address] [address] #### TROPI, BMP #### [address] [place] [address] Bacteria LM.HPF #/area (Urine sed) TRACE Abnormal NONE [facility] Comment on above: Performed By: #### C DP #### [address] [address] #### TROPI, BMP #### [address] [place] [facility] Epithelial cells LM.HPF #/area (Urine sed) 5 TO 10 Normal 0-25 [facility] Comment on above: Performed By: #### C DP #### [address] [address] #### TROPI, BMP #### [address] [place] [address] RBC #/vol (U) 0 TO 2 Normal 0-2 [facility] Comment on above: Performed By: #### C DP #### [address] [address] #### TROPI, BMP #### [address] [place] [address] WBC #/vol (U) 0 TO 2 Normal 0-5 [facility] Comment on above: Performed By: #### C DP #### [address] [address] #### TROPI, BMP #### [address] [place] [address] Amorphous sediment LM Ql (Urine sed) NOT REPORTED Normal NONE [facility] Comment on above: Performed By: #### C DP #### [address] [address] #### TROPI, BMP #### [address] [place] [address] Casts LM.LPF #/area (Urine sed) NOT REPORTED Normal [facility] Comment on above: Performed By: #### C DP #### [address] [address] #### TROPI, BMP #### [address] [place] [address] Crystals LM Nom (Urine sed) NOT REPORTED Normal NONE [facility] Comment on above: Performed By: #### C DP #### [address] [address] #### TROPI, BMP #### [address] [place] [address] Epithelial, Renal NOT REPORTED Normal 0 [facility] Comment on above: Performed By: #### C DP #### [address] [address] #### TROPI, BMP #### [address] [place] [address] Mucus Strands NOT REPORTED Normal NONE [facility] Comment on above: Performed By: #### C DP #### [address] [address] #### TROPI, BMP #### [address] [place] [address] Other Observations NOT REPORTED Normal NREQ [facility] Comment on above: Performed By: #### C DP #### [address] [address] #### TROPI, BMP #### [address] [place] [address] Trichomonas NOT REPORTED Normal NONE [facility] Comment on above: Performed By: #### C DP #### [address] [address] #### TROPI, BMP #### [address] [place] [address] Yeast LM Ql (Urine sed) NOT REPORTED Normal [facility] Comment on above: Performed By: #### C DP #### [address] [address] #### TROPI, BMP #### [address] [place] [address] Stool PCR [place] 02-06-20 19 Campylobacter sp PCR NEGATIVE: No Campylobacter spp. (jejuni or coli) DNA Detected Normal [facility] Comment on above: Performed By: #### C DP #### [address] [address] #### TROPI, BMP #### [address] [place] [address] E coli enterotox PCR NEGATIVE: No Enterotoxigenic E. coli (ETEC) Heat-labile and heat-stable (LT/ST) Normal EECNEG [facility] Comment on above: Result Comment: DNA Detected Performed By: #### C DP #### [address] [address] #### TROPI, BMP #### [address] [place] [address] Plesiomonas sp PCR Negative Normal PLENEG [facility] Comment on above: Performed By: #### C DP #### [address] [address] #### TROPI, BMP #### [address] [place] [address] Salmonella sp PCR Negative Normal SALNEG [facility] Comment on above: Performed By: #### C DP #### [address] [address] #### TROPI, BMP #### [address] [place] [address] Shigatoxin gene PCR Negative Normal [facility] Comment on above: Performed By: #### C DP #### [address] [address] #### TROPI, BMP #### [address] [place] [address] Vibrio sp PCR NEGATIVE: No Vibrio (V. vulnificus, V, parahaemolyticus and V. cholerae) DNA [facility] Comment on above: Result Comment: Dete cted Performed By: #### C DP #### [address] [address] #### TROPI, BMP #### [address] [place] [address] Yersinia gene PCR Negative Normal [facility] Comment on above: Performed By: #### C DP #### [address] [address] #### TROPI, BMP #### [address] [place] [address] C diff Ag + Toxinon 02-05-20 19 C diff Ag + Toxin Negative Normal [facility] Comment on above: Performed By: #### C DP #### [address] [place] [address] #### TROPI, BMP #### [address] [place] [address] Specimen Description .FECES Normal [facility] Comment on above: Performed By: #### C DP #### [address] [place] [address] #### TROPI, BMP #### [address] [place] [address] CBCon 02-04-2019 Erythrocyte distribution width Ratio (RBC) 15.9 % High 11.8-14.4 [facility] Comment on above: Performed By: #### C P, CBC #### [address] [place], [place] [address]83 [employer] Teacher: Eddi Desai MD Hematocrit Volume Fraction (Bld) 36.8 % Normal 36.3-47.1 [facility] Comment on above: Performed By: #### C P, CBC #### [address] [place], [place] 8126283 [employer] Teacher: Eddi Desai MD Hemoglobin mass conc (Bld) 11.2 g/dL Low 11.9-15.1 [facility] Comment on above: Performed By: #### C P, CBC #### [address] [place], [place] 6[address]83 [employer] Teacher: Eddi Desai MD MCH Entitic mass (RBC) 24.1 pg Low 25.2-33.5 [facility] Comment on above: Performed By: #### C P, CBC #### [address] [place], [place] [address]30883 [employer] Teacher: Eddi Desai MD MCHC mass conc (RBC) 30.4 g/dL Normal 28.4-34.8 [facility] Comment on above: Performed By: #### C P, CBC #### [facility] [address] [place], [place] 2811683 [employer] Teacher: Eddi Desai MD MCV Entitic volume (RBC) 79.3 fL Low 82.6-102.9 [facility] Comment on above: Performed By: #### C P, CBC #### [facility] [address] [place], [facility]83 [employer] Teacher: Eddi Desai MD NRBC Automated 0.0 per 100 WBC Normal 0.0 [facility] Comment on above: Performed By: #### C P, CBC #### [facility] [address] [place], [facility]83 [employer] Teacher: Eddi Desai MD Platelet mean volume Entitic volume (Bld) 10.4 fL Normal 8.1-13.5 [facility] Comment on above: Performed By: #### C P, CBC #### [address] [place], [facility]83 [employer] Teacher: Eddi Desai MD Platelets #/vol (Bld) 278 10*3/uL Normal 138-453 [facility] Comment on above: Performed By: #### C P, CBC #### [address] [place], [place] [address] [employer] Teacher: Eddi Desai MD RBC #/vol (Bld) 4.64 10*6/uL Normal 3.95-5.11 [facility] Comment on above: Performed By: #### C P, CBC #### [address] [place], [facility]83 [employer] Teacher: Eddi Desai MD WBC #/vol (Bld) 11.8 10*3/uL High 3.5-11.3 [facility] Comment on above: Performed By: #### C P, CBC #### [facility] [address] [place] [address] [address] [place], [place] 1649583 [employer] Teacher: Eddi Desai MD Comp Metabolic Profon 2018 (cont.) Normal [facility] Comment on above: Result Comment: Aver age GFR for 30-39 years old: 107 mL/min/1.73sq m Chronic Kidney Disease: <60 mL/min/1.73sq m Kidney failure: <15 mL/min/1.73sq m eGFR calculated using average adult body mass. Additional eGFR calculator available at: http://[email or web address]_[email or web address].htm Performed By: #### C P, CBC #### [facility] [address] [place] [address] [employer] Teacher: Eddi Desai MD Albumin mass conc 3.9 g/dL Normal 3.5-5.2 [facility] Comment on above: Performed By: #### C P, CBC #### [facility] [address] [place], [place] [address]453783 [employer] Teacher: Eddi Desai MD Albumin/Globulin mass ratio 1.1 {ratio} Normal 1.0-2.5 [facility] Comment on above: Performed By: #### C P, CBC #### [facility] [address] [place], [place] 2041383 [employer] Teacher: Eddi Desai MD Alkaline Phos 83 U/L Normal 35-104 [facility] Comment on above: Performed By: #### C P, CBC #### [facility] [address] [place], [place] 6444283 [employer] Teacher: Eddi Desai MD ALT enzyme act/vol 12 U/L Normal 5-33 [facility] Comment on above: Performed By: #### C P, CBC #### [facility] [address] [place] [address] [employer] Teacher: Eddi Desai MD Anion gap molar conc 14 mmol/L Normal 9-17 [facility] Comment on above: Performed By: #### C P, CBC #### [facility] [address] [place], [place] 8824483 [employer] Teacher: Eddi Desai MD AST enzyme act/vol 12 U/L Normal <32 [facility] Comment on above: Performed By: #### C P, CBC #### [facility] [address] [place], [place] 6532183 [employer] Teacher: Eddi Desai MD Bilirubin Ql (U) 0.55 mg/dL Normal 0.3-1.2 [facility] Comment on above: Performed By: #### C P, CBC #### [facility] [address] [place], [place] 6402683 [employer] Teacher: Eddi Desai MD BUN/CRE Ratio 13 Normal 9-20 [facility] Comment on above: Performed By: #### C P, CBC #### [facility] [address] [place], [place] 4625883 [employer] Teacher: Eddi Desai MD Calcium mass conc 9.3 mg/dL Normal 8.6-10.4 [facility] Comment on above: Performed By: #### C P, CBC #### [facility] [address] [place] [address] [employer] Teacher: Eddi Desai MD Chloride molar conc 103 mmol/L Normal 98-107 [facility] Comment on above: Performed By: #### C P, CBC #### [facility] [address] [place] [address] [employer] Teacher: Eddi Desai MD CO2 molar conc 22 mmol/L Normal 20-31 [facility] Comment on above: Performed By: #### C P, CBC #### [facility] [address] [place], [place] 0266483 [employer] Teacher: Eddi Desai MD Creatinine mass conc 0.80 mg/dL Normal 0.50-0.90 [facility] Comment on above: Performed By: #### C P, CBC #### [facility] [address] [place], [place] 2061283 [employer] Teacher: Eddi Desai MD GFR, Amer >60 Normal >60 [facility] Comment on above: Performed By: #### C P, CBC #### [facility] [address] [place], [place] 9294683 [employer] Teacher: Eddi Desai MD GFR,non Amer >60 Normal >60 [facility] Comment on above: Performed By: #### C P, CBC #### [facility] [address] [place], [place] 7347083 [employer] Teacher: Eddi Desai MD Glucose mass conc 99 mg/dL Normal 70-99 [facility] Comment on above: Performed By: #### C P, CBC #### [facility] [address] [place], [place] 3265283 [employer] Teacher: Eddi Desai MD Potassium molar conc 3.5 mmol/L Low 3.7-5.3 [facility] Comment on above: Performed By: #### C P, CBC #### [facility] [address] [place], [place] 8163083 [employer] Teacher: Eddi Desai MD Protein mass conc 7.5 g/dL Normal 6.4-8.3 [facility] Comment on above: Performed By: #### C P, CBC #### [facility] [address] [place], [place] 2407283 [employer] Teacher: Eddi Desai MD Sodium molar conc 139 mmol/L Normal 135-144 [facility] Comment on above: Performed By: #### C P, CBC #### [facility] [address] [place], [place] 1759083 [employer] Teacher: Eddi Desai MD Staging: Normal [facility] Comment on above: Result Comment: Stag e 1: Some kidney damage normal GFR Stage 2: Mild kidney damage GFR 60-89 Stage 3: Moderate kidney damage GFR 30-59 Stage 4: Severe kidney damage GFR 15-29 Stage 5: Severe kidney damage GFR <15 ESRD - chronic treatment by dialysis or transplant Performed By: #### C P, CBC #### [facility] [address] [place], [place] 1063783 [employer] Teacher: Eddi Desai MD Urea nitrogen mass conc 10 mg/dL Normal 6-20 [facility] Comment on above: Performed By: #### C P, CBC #### [facility] [address] [place] [address]683 [employer] Teacher: Eddi Desai MD Drug Scr, Abuse, Uron 2018 Amphetamine(s),Ur Negative Normal NEG [facility] Comment on above: Performed By: #### U HCG, LANE, UMICAO, UAX #### [facility] [address] [place] [address] Dr. [place] [address]006683 [employer] Teacher: Eddi Desai MD Barbiturate(s),Ur Negative Normal [facility] Comment on above: Performed By: #### U HCG, LANE, UMICAO, UAX #### [facility] [address] [place] [address] Dr. [place] [address]006683 [employer] Teacher: Eddi Desai MD Base excess Calculated molar conc (Bld) Negative Normal [facility] Comment on above: Performed By: #### U HCG, LANE, UMICAO, UAX #### [facility] [address] [place] [address]683 [employer] Teacher: Eddi Deasi MD Benzodiazepine(s) Negative Normal [facility] Comment on above: Performed By: #### U HCG, LANE, UMICAO, UAX #### [facility] [address] [place] [address]683 [employer] Teacher: Eddi Desai MD Buprenorphrine, Ur Negative Normal [facility] Comment on above: Performed By: #### U HCG, LANE, UMICAO, UAX #### [facility] [address] [place], [facility]83 [employer] Teacher: Eddi Desai MD Cannabinoid(s),Ur Positive Abnormal NEG [facility] Comment on above: Performed By: #### U HCG, LANE, UMICAO, UAX #### [facility] [address] [place], [facility]83 [employer] Teacher: Eddi Desai MD Methadone Ql (U) Negative Normal [facility] Comment on above: Performed By: #### U HCG, LANE, UMICAO, UAX #### [address] [place] [address]683 [employer] Teacher: Eddi Desai MD Methamphetamine, Ur Negative Normal [facility] Comment on above: Performed By: #### U HCG, LANE, UMICAO, UAX #### [address] [place] [address] [employer] Teacher: Eddi Desai MD Opiate(s), Ur Negative Normal [facility] Comment on above: Performed By: #### U HCG, LANE, UMICAO, UAX #### [facility] [address] [place] [address] Dr. [place], [place] [address] [employer] Teacher: Eddi Desai MD Oxycodone, Urine Negative Normal NEG [facility] Comment on above: Performed By: #### U HCG, LANE, UMICAO, UAX #### [address] [place] [address] [employer] Teacher: Eddi Desai MD Phencyclidine, Ur Negative Normal [facility] Comment on above: Performed By: #### U HCG, LANE, UMICAO, UAX #### [address] [place] [address] [employer] Teacher: Eddi Desai MD Protein mass conc (U) Negative Normal NEG [facility] Comment on above: Performed By: #### U HCG, LANE, UMICAO, UAX #### [facility] [address] [place], [place] 2416083 [employer] Teacher: Eddi Desai MD Tricyclic antidepressants Screen Ql (U) Negative Normal NEG [facility] Comment on above: Result Comment: Drug screen results are to be used for medical purposes only. All positive results are unconfirmed. Testing for employment or legal uses should be sent to a reference laboratory for confirmation. Performed By: #### U HCG, LANE, UMICAO, UAX #### [address] [place], [place] 9219983 [employer] Teacher: Eddi Desai MD Interpretive Info NOT REPORTED Normal [facility] Comment on above: Performed By: #### U HCG, LANE, UMICAO, UAX #### [facility] [address] [place] [address] Dr. [place], [place] 6570783 [employer] Teacher: Eddi Desai MD MDMA, Urine NOT REPORTED Normal NEG [facility] Comment on above: Performed By: #### U HCG, LANE, UMICAO, UAX #### [address] [place], [place] 3240383 [employer] Teacher: Eddi Desai MD HCG, ,Urineon 02-04 HCG.beta subunit ( test) Ql (U) Negative Normal NEG [facility] Comment on above: Result Comment: Spec imens with hCG levels near the threshold of the test (25 mIU/mL) may give a negative or indeterminate result. In such cases, another test should be performed with a new specimen in 48-72 hours. If early is suspected clinically in this setting, correlation with quantitative serum b-hCG level is suggested. [facility] has confirmed the use of plasma for this test. This has not been cleared or approved by the U.[place]. Food and Drug Administration. The FDA has determined that such clearance is not necessary. Performed By: #### U HCG, LANE, UMICAO, UAX #### [facility] [address] [place], [place] 943[address]83 [employer] Teacher: Eddi Desai MD Lactic Acidon 02-04-2019 Lactate molar conc 1.5 mmol/L Normal 0.5-2.2 [facility] Comment on above: Performed By: #### L ACTIC #### [facility] [address] [place] [address] [employer] Teacher: Eddi Desai MD Lactate molar conc NOT REPORTED Normal 0.7-2.1 [facility] Comment on above: Performed By: #### L ACTIC #### [facility] [address] [place], [place] 9394183 [employer] Teacher: Eddi Desai MD UA w/Reflex Cultureon 2018 Acetoacetic Acid,Ur Negative Normal NEG [facility] Comment on above: Performed By: #### U HCG, LANE, UMICAO, UAX #### [facility] [address] [place] [address] [employer] Teacher: Eddi Desai MD Bilirubin.direct mass conc Negative Normal NEG [facility] Comment on above: Performed By: #### U HCG, LANE, UMICAO, UAX #### [facility] [address] [place], [place] 7071483 [employer] Teacher: Eddi Desai MD Color Nom (U) YELLOW [facility] Comment on above: Performed By: #### U HCG, LANE, UMICAO, UAX #### [facility] [address] [place] [address] [employer] Teacher: Eddi Desai MD Glucose mass conc Negative Normal NEG [facility] Comment on above: Performed By: #### U HCG, LANE, UMICAO, UAX #### [facility] [address] [place] [address] [employer] Teacher: Eddi Desai MD Hemoglobin mass conc (Bld) Negative Normal NEG [facility] Comment on above: Performed By: #### U HCG, LANE, UMICAO, UAX #### [facility] [address] [place] [address] [employer] Teacher: Eddi Desai MD Leuckocyte Esterase Negative Normal NEG [facility] Comment on above: Performed By: #### U HCG, ALNE, UMICAO, UAX #### [facility] [address] [place], [place] 5628383 [employer] Teacher: Eddi Desai MD Nitrite,Ur Negative Normal NEG [facility] Comment on above: Performed By: #### U HCG, LANE, UMICAO, UAX #### [facility] [address] [place], [place] [address] [employer] Teacher: Eddi Desai MD PH,Ur 6.0 Normal 5.0-9.0 [facility] Comment on above: Performed By: #### U HCG, LANE, UMICAO, UAX #### [facility] [address] [place] [address] [employer] Teacher: Eddi Desai MD Protein mass conc Negative Normal NEG [facility] Comment on above: Performed By: #### U HCG, LANE, UMICAO, UAX #### [facility] [address] [place] [address] [employer] Teacher: Eddi Desai MD Spec. [place],Ur 1.010 Normal 1.010-1.020 [facility] Comment on above: Performed By: #### U HCG, LANE, UMICAO, UAX #### [facility] [address] [place] [address] [employer] Teacher: Eddi Desai MD Turbidity CLEAR Normal CLEAR [facility] Comment on above: Performed By: #### U HCG, LANE, UMICAO, UAX #### [facility] [address] [place], [facility]83 [employer] Teacher: Eddi Desai MD Urobilinogen,Ur Normal Normal NORM [facility] Comment on above: Performed By: #### U HCG, LANE, UMICAO, UAX #### [facility] [address] [place], [place] [address] [employer] Teacher: Eddi Desai MD Comment NOT REPORTED Normal [facility] Comment on above: Performed By: #### U HCG, LANE, UMICAO, UAX #### [facility] [address] [place], [facility]83 [employer] Teacher: Eddi Desai MD Urinalysis,Microon 9 ----- Normal [facility] Comment on above: Performed By: #### U HCG, LANE, UMICAO, UAX #### [address] [place] [facility]83 [employer] Teacher: Eddi Desai MD Bacteria LM.HPF #/area (Urine sed) 1+ Abnormal NONE [facility] Comment on above: Performed By: #### U HCG, LANE, UMICAO, UAX #### [address] [place], [place] [address] [employer] Teacher: Eddi Desai MD Epithelial cells LM.HPF #/area (Urine sed) 0 TO 2 Normal 0-25 [facility] Comment on above: Performed By: #### U HCG, LANE, UMICAO, UAX #### [facility] [address] [place] [address] [employer] Teacher: Eddi Desai MD RBC #/vol (U) 0 TO 2 Normal 0-2 [facility] Comment on above: Performed By: #### U HCG, LANE, UMICAO, UAX #### [facility] [address] [place] [address] [employer] Teacher: Eddi Desai MD WBC #/vol (U) 0 TO 2 Normal 0-5 [facility] Comment on above: Performed By: #### U HCG, LANE, UMICAO, UAX #### [facility] [address] [place], [place] 9963783 [employer] Teacher: Eddi Desai MD Amorphous sediment LM Ql (Urine sed) NOT REPORTED Normal [facility] Comment on above: Performed By: #### U HCG, LANE, UMICAO, UAX #### [facility] [address] [place] [address] [employer] Teacher: Eddi Desai MD Casts LM.LPF #/area (Urine sed) NOT REPORTED Normal [facility] Comment on above: Performed By: #### U HCG, LANE, UMICAO, UAX #### [facility] [address] [place], [place] 5861583 [employer] Teacher: Eddi Desai MD Crystals LM Nom (Urine sed) NOT REPORTED Normal [facility] Comment on above: Performed By: #### U HCG, LANE, UMICAO, UAX #### [facility] [address] [place] [address] [employer] Teacher: Eddi Desai MD Epithelial, Renal NOT REPORTED Normal 0 [facility] Comment on above: Performed By: #### U HCG, LANE, UMICAO, UAX #### [facility] [address] [place], [place] 2803983 [employer] Teacher: Eddi Desai MD Mucus Strands NOT REPORTED Normal [facility] Comment on above: Performed By: #### U HCG, LANE, UMICAO, UAX #### [facility] [address] [place], [place] 3058483 [employer] Teacher: Eddi Desai MD Other Observations NOT REPORTED Normal NREQ [facility] Comment on above: Performed By: #### U HCG, LANE, UMICAO, UAX #### [facility] [address] [place], [place] 8715483 [employer] Teacher: Eddi Desai MD Trichomonas NOT REPORTED Normal [facility] Comment on above: Performed By: #### U HCG, LANE, UMICAO, UAX #### [facility] [address] [place], [place] 4517883 [employer] Teacher: Eddi Desai MD Yeast LM Ql (Urine sed) NOT REPORTED Normal [facility] Comment on above: Performed By: #### U HCG, LANE, UMICAO, UAX #### [facility] [address] [place], [place] 5506783 [employer] Teacher: Eddi Desai MD CBC W Auto Differentialon Abs Neut # 4.8 10 X 3/mm Normal 1.8 - 7.7 [facility] Comment on above: Performed By: #### C BC Auto Diff #### [facility] [address] [place] [address] Basophils/100 WBC (Bld) 1 % Normal 0 - 1 [facility] Comment on above: Performed By: #### C BC Auto Diff #### [facility] [address] [place] [address] Eosinophils #/vol (Bld) 0.5 10 X 3/mm Normal 0.0 - 0.5 [facility] Comment on above: Performed By: #### C BC Auto Diff #### [facility] [address] [place] [address] Eosinophils/100 WBC (Bld) 7 % High 0 - 5 [facility] Comment on above: Performed By: #### C BC Auto Diff #### [facility] [address] [place] [address] Erythrocyte distribution width Ratio (RBC) 16.3 % High 11.5 - 14.5 [facility] Comment on above: Performed By: #### C BC Auto Diff #### [facility] [address] [place] [address] Hematocrit Volume Fraction (Bld) 35.1 % Low 36.0 - 47.0 [facility] Comment on above: Performed By: #### C BC Auto Diff #### [address] [place] [address] Hemoglobin mass conc (Bld) 11.1 g/dL Low 12.0 - 16.0 [facility] Comment on above: Performed By: #### C BC Auto Diff #### [address] [address] Lymphocytes #/vol (Bld) 2.3 10 X 3/mm Normal 1.0 - 4.0 [facility] Comment on above: Performed By: #### C BC Auto Diff #### [address] [address] Lymphocytes/100 WBC (Bld) 29 % Normal 20 - 40 [facility] Comment on above: Performed By: #### C BC Auto Diff #### [address] [address] MCH Entitic mass (RBC) 24.0 pg Low 27.0 - 35.0 [facility] Comment on above: Performed By: #### C BC Auto Diff #### [address] [address] MCHC mass conc (RBC) 31.6 g/dL Low 32.0 - 36.0 [facility] Comment on above: Performed By: #### C BC Auto Diff #### [facility] [address] [place] [address] MCV Entitic volume (RBC) 76.2 fL Low 80.0 - 100.0 [facility] Comment on above: Performed By: #### C BC Auto Diff #### [facility] [address] [place] [address] Monocytes/100 WBC (Bld) 6 % Normal 1 - 15 [facility] Comment on above: Performed By: #### C BC Auto Diff #### [place] [address] [place] [address] Neutrophils/100 WBC (Bld) 59 % Normal 50 - 70 [facility] Comment on above: Performed By: #### C BC Auto Diff #### [place] [address] [place] [address] Platelet mean volume Entitic volume (Bld) 8.7 fL Normal 7.5 - 11.5 [facility] Comment on above: Performed By: #### C BC Auto Diff #### [place] [address] [place] [address] Platelets #/vol (Bld) 261 uLx10 Normal 150 - 450 [facility] Comment on above: Performed By: #### C BC Auto Diff #### [place] [address] [place] [address] RBC #/vol (Bld) 4.61 10 X 6/mm Normal 4.20 - 5.40 [facility] Comment on above: Performed By: #### C BC Auto Diff #### [place] [address] [place] [address] WBC #/vol (Bld) 8.2 10 X 3/mm Normal 3.7 - 11.[address] [facility] Comment on above: Performed By: #### C BC Auto Diff #### [place] [address] [place] [address] Comprehensive Metabolic P[place] 01-20-2019 GFR/1.73 sq M predicted among non-blacks MDRD vol rate/area (S/P/Bld) 118.3 Normal [facility] Comment on above: Result Comment: eGFR Interpretation: Normal: Equal to or greater than 60 mL/min/1.73 meters squared Chronic Kidney Disease: Less than 60 mL/min/1.73 meters squared Kidney Failure: Less than 15 mL/min/1.73 meters squared Performed By: #### C MP #### [facility] [address] [place] [address] GFR/1.73 sq M predicted among non-blacks MDRD vol rate/area (S/P/Bld) 163.17 Normal [facility] Comment on above: Result Comment: eGFR Interpretation: Normal: Equal to or greater than 60 mL/min/1.73 meters squared Chronic Kidney Disease: Less than 60 mL/min/1.73 meters squared Kidney Failure: Less than 15 mL/min/1.73 meters squared Performed By: #### C MP #### [address] [place] [address] GFR/1.73 sq M predicted among non-blacks MDRD vol rate/area (S/P/Bld) 128.94 Normal [facility] Comment on above: Result Comment: eGFR Interpretation: Normal: Equal to or greater than 60 mL/min/1.73 meters squared Chronic Kidney Disease: Less than 60 mL/min/1.73 meters squared Kidney Failure: Less than 15 mL/min/1.73 meters squared Performed By: #### C MP #### [facility] [address] [place] [address] GFR/1.73 sq M predicted among non-blacks MDRD vol rate/area (S/P/Bld) 122.98 Normal [facility] Comment on above: Result Comment: eGFR Interpretation: Normal: Equal to or greater than 60 mL/min/1.73 meters squared Chronic Kidney Disease: Less than 60 mL/min/1.73 meters squared Kidney Failure: Less than 15 mL/min/1.73 meters squared Performed By: #### C MP #### [facility] [address] [place] [address] GFR/1.73 sq M predicted among non-blacks MDRD vol rate/area (S/P/Bld) 136.41 [facility] Comment on above: Performed By: #### C MP #### [facility] [address] [place] [address] GFR/1.73 sq M predicted among non-blacks MDRD vol rate/area (S/P/Bld) 188.63 [facility] Comment on above: Performed By: #### C MP #### [address] [place] [address] GFR/1.73 sq M predicted among non-blacks MDRD vol rate/area (S/P/Bld) 149.05 [facility] Comment on above: Performed By: #### C MP #### [address] [place] [address] GFR/1.73 sq M predicted among non-blacks MDRD vol rate/area (S/P/Bld) 141.77 [facility] Comment on above: Performed By: #### C MP #### [facility] [address] [place] [address] Age Reported 28 year(s) [facility] Comment on above: Performed By: #### C MP #### [facility] [address] [place] [address] Albumin mass conc 3.9 g/dL Normal 3.5 - 5.0 [facility] Comment on above: Performed By: #### C MP #### [facility] [address] [place] [address] ALP enzyme act/vol 81 U/L Normal 38 - [address] [facility] Comment on above: Performed By: #### C MP #### [facility] [address] [place] [address] ALT enzyme act/vol 39 U/L High 0 - [address] [facility] Comment on above: Performed By: #### C MP #### [facility] [address] [place] [address] AST enzyme act/vol 30 U/L Normal 14 - [address] [facility] Comment on above: Performed By: #### C MP #### [address] [place] [address] Bilirubin mass conc 0.6 mg/dL Normal 0.2 - 1.3 [facility] Comment on above: Performed By: #### C MP #### [address] [place] [address] Calcium mass conc 8.6 mg/dL Normal 8.4 - 10.2 [facility] Comment on above: Performed By: #### C MP #### [address] [place] [address] Chloride molar conc 105 mmol/L Normal 98 - 107 [facility] Comment on above: Performed By: #### C MP #### [address] [place] [address] CO2 molar conc 23 mmol/L Normal 22 - 32 [facility] Comment on above: Performed By: #### C MP #### [address] [place] [address] Creatinine mass conc 0.67 mg/dL Normal 0.52 - 1.04 [facility] Comment on above: Performed By: #### C MP #### [address] [address] Glucose mass conc 81 mg/dL Normal 65 - 100 [facility] Comment on above: Performed By: #### C MP #### [facility] [address] [place] [address] Potassium molar conc 3.9 mmol/L Normal 3.6 - 5.0 [facility] Comment on above: Performed By: #### C MP #### [facility] [address] [place] [address] Protein mass conc 7.3 g/dL Normal 6.3 - 8.2 [facility] Comment on above: Performed By: #### C MP #### [address] [place] [address] Sodium molar conc 139 mmol/L Normal 135 - 145 [facility] Comment on above: Performed By: #### C MP #### [address] [place] [address] Urea nitrogen mass conc 5 mg/dL Low 7 - 17 [facility] Comment on above: Performed By: #### C MP #### [address] [place] [address] Age at specimen collection = Normal [facility] Comment on above: Performed By: #### C MP #### [address] [place] [address] Performed By: #### C BC Auto Diff #### [address] [facility] [place] [place] [address] FERRITINon 11-08-2018 Ferritin mass conc 10 ng/mL Normal 6.24-137 [facility] Comment on above: Result Comment: SARAH ENOPAUSAL FEMALES 6.9-282.5 POSTMENOPAUSAL FEMALES 14.0-233.1 Performed By: #### F EPRO, FRTN, B12, AFOL ####Testing performed at [address] [address] FOLATEon 11-08-2018 FOLATE 12.0 NG/ML Normal 2.56-20.0 [facility] Comment on above: Performed By: #### F EPRO, FRTN, B12, AFOL ####Testing performed at [address] [address] IRON PROFILEon 11-08-2018 IRON BINDING 416 UG/DL Normal 250-450 [facility] Comment on above: Performed By: #### F EPRO, FRTN, B12, AFOL ####Testing performed at [address] [address] TRANSFERRIN SATURATION,CALCULATED 13 % Normal [facility] Comment on above: Performed By: #### F EPRO, FRTN, B12, AFOL ####Testing performed at [address] [address] Iron mass conc 53 ug/dL Normal 37-170 [facility] Comment on above: Performed By: #### F EPRO, FRTN, B12, AFOL ####Testing performed at [address] [address] VITAMIN B12on 11-08-2018 Cobalamin (Vitamin B12) mass conc 351 pg/mL Normal 239-931 [facility] Comment on above: Performed By: #### F EPRO, FRTN, B12, AFOL ####Testing performed at [address] [address] BHCG,QUANTITATIVEon 10-07-20 18 BHCG,QUANTITATIVE <2.39 Normal [facility] Comment on above: Result Comment: BHCG INTERPRETIVE [...] qualitative hCG testing of urine.Testing performed at [place] [id number] Performed By: #### B HCG2 ####[place] [address] POCT URINE PREGNANCYon 10-07 HCG.beta subunit Qn Invalid Interpretation Code [facility] [place] [facility] Work Phone: Interpretation and review of laboratory results Normal Invalid Interpretation Code [facility] [place] [facility] Work Phone: [place] REMOVE INTRAUTERINE DEVIC Brian 10-07-2018 Joseph Renteria DO 10/07 1:25 PM IUD REMOVAL PROCEDURE PERFORMED BY: Joseph Renteria DO ASSOCIATE CHIEF NURSE(S): None ATTENDING: Joseph Renteria DO PROCEDURE DATE: [...] THIS PROCEDURE REQUIRE A UNIVERSAL PROTOCOL? Yes. [place] Protocol is required Preprocedure verification is complete [...] 6 months. Periods may become shorter and/or talent acquisition partner thereafter. Cycles may remain irregular, become infrequent, or even cease. Consider as fertility is rapidly returned after removal of an IUD Questions have been answered. Informed consent has been obtained. Cervix was prepped with betadine x 3. IUD strings were visualized and IUD removed in whole in the usual fashion utilizing gentle traction with a Elsy needle electric mule driver. SPECIMEN(S) REMOVED: none DISPOSITION OF SPECIMEN(S): N/A ESTIMATED BLOOD LOSS: None ESTIMATED FLUIDS: No crystalloid, colloid or blood products given.. FINDINGS: unremarkable contour of 8 cm uterus, unremarkable adenexa Brand: Radha CONDITION: Stable. Patient tolerated procedure well. COMPLICATIONS: None. Good hemostasis obtained. PLAN: Follow up prn Invalid Interpretation Code [facility] Work Phone: Cult,Bloodon 09-20-2018 Cult,Blood Specimen Description .BLOOD Special Requests 10 ML LEFT FOREARM Culture NO GROWTH 6 DAYS Report Status FINAL 09/20/2018 Normal [facility] Comment on above: Performed By: #### U SAMEERA Ortiz #### [facility] [address] [place] [address] CHLAM/GC AMPLIFon 09-17-2018 CHLAMYDIA NUC. AMP Negative Normal Negative [facility] GONOCOCCUS NUC. AMP Negative Normal Negative [facility] Comment on above: Result Comment: PERF ORMED AT [facility] Cult,Urineon 09-15-2018 Cult,Urine Specimen Description .URINE, MIDSTREAM Special Requests NOT REPORTED Culture NO SIGNIFICANT GROWTH Report Status FINAL 09/15/2018 [facility] Comment on above: Performed By: #### U SAMEERA Ortiz #### [facility] [address] [place] [address] TESTOSTER.FREE-TOTALon 09-15 FREE TESTOSTERONE 0.9 pg/mL Normal 0.0-4.2 [facility] Comment on above: Result Comment: PERF ORMED AT [facility] Performed By: #### A CBC, CHEM7F, BHCG2 ####Testing performed at [facility] [place] [address] Amylaseon 09-14-2018 Amylase enzyme act/vol 31 U/L Normal 28-100 [facility] Comment on above: Performed By: #### C DP, HCG, LACTIC, ISABEL, CP, LIP #### [facility] [address] [place] [address] CBC with Diffon 09-14-2018 Abs. Basophil 0.00 k/uL Normal 0.0-0.2 [facility] Comment on above: Performed By: #### C DP, HCG, LACTIC, ISABEL, CP, LIP #### [facility] [address] [place] [address] Abs.Neutrophil (Seg) 6.10 k/uL Normal 2.5-7.0 [facility] Comment on above: Performed By: #### C DP, HCG, LACTIC, ISABEL, CP, LIP #### [facility] [address] [place] [address] Auto Diff Performed YES Normal [facility] Comment on above: Performed By: #### C DP, HCG, LACTIC, ISABEL, CP, LIP #### [facility] [address] [place] [address] Basophils/100 WBC (Bld) 0 % Normal 0-2 [facility] Comment on above: Performed By: #### C DP, HCG, LACTIC, ISABEL, CP, LIP #### [facility] [address] [place] [address] Eosinophils #/vol (Bld) 0.00 10*3/uL Normal 0.0-0.4 [facility] Comment on above: Performed By: #### C DP, HCG, LACTIC, ISABEL, CP, LIP #### [facility] [id number] Eosinophils/100 WBC (Bld) 0 % Normal 0-5 [facility] Comment on above: Performed By: #### C DP, HCG, LACTIC, ISABEL, CP, LIP #### [place] [address] Erythrocyte distribution width Ratio (RBC) 16.9 % High 12.1-15.2 [facility] Comment on above: Performed By: #### C DP, HCG, LACTIC, ISABEL, CP, LIP #### [place] [address] Hematocrit Volume Fraction (Bld) 31.0 % Low 36-46 [facility] Comment on above: Performed By: #### C DP, HCG, LACTIC, ISABEL, CP, LIP #### [place] [address] Hemoglobin mass conc (Bld) 10.1 g/dL Low 12.0-16.0 [facility] Comment on above: Performed By: #### C DP, HCG, LACTIC, ISABEL, CP, LIP #### [place] [address] Lymphocytes #/vol (Bld) 2.10 10*3/uL Normal 1.0-4.8 [facility] Comment on above: Performed By: #### C DP, HCG, LACTIC, ISABEL, CP, LIP #### [place] [address] Lymphocytes/100 WBC (Bld) 24 % Normal 15-40 [facility] Comment on above: Performed By: #### C DP, HCG, LACTIC, ISABEL, CP, LIP #### [place] [address] MCH Entitic mass (RBC) 25.0 pg Low 26-34 [facility] Comment on above: Performed By: #### C DP, HCG, LACTIC, ISABEL, CP, LIP #### [place] [address] MCHC mass conc (RBC) 32.6 g/dL Normal 31-37 [facility] Comment on above: Performed By: #### C DP, HCG, LACTIC, ISABEL, CP, LIP #### [address] [place] [address] MCV Entitic volume (RBC) 76.6 fL Low 80-100 [facility] Comment on above: Performed By: #### C DP, HCG, LACTIC, ISABEL, CP, LIP #### [place] [address] Monocytes #/vol (Bld) 0.40 10*3/uL Normal 0.0-1.0 [facility] Comment on above: Performed By: #### C DP, HCG, LACTIC, ISABEL, CP, LIP #### [address] [place] [address] Monocytes/100 WBC (Bld) 5 % Normal 4-8 [facility] Comment on above: Performed By: #### C DP, HCG, LACTIC, ISABEL, CP, LIP #### [place] [address] Neutrophil (Seg) 71 % Normal 47-75 [facility] Comment on above: Performed By: #### C DP, HCG, LACTIC, ISABEL, CP, LIP #### [place] [address] Platelets #/vol (Bld) 499 10*3/uL High 140-450 Me [facility] Comment on above: Performed By: #### C DP, HCG, LACTIC, ISABEL, CP, LIP #### [place] [address] RBC #/vol (Bld) 4.05 10*6/uL Normal 4.0-5.2 [facility] Comment on above: Performed By: #### C DP, HCG, LACTIC, ISABEL, CP, LIP #### [place] [address] WBC #/vol (Bld) 8.6 10*3/uL Normal 3.5-11.0 [facility] Comment on above: Performed By: #### C DP, HCG, LACTIC, ISABEL, CP, LIP #### [place] [address] Abs.Imm.Granulocyte NOT REPORTED Normal 0.00-0.30 [facility] Comment on above: Performed By: #### C DP, HCG, LACTIC, ISABEL, CP, LIP #### [place] [address] Immature granulocytes #/vol (Bld) NOT REPORTED Normal 0 [facility] Comment on above: Performed By: #### C DP, HCG, LACTIC, ISABEL, CP, LIP #### [place] [address] NRBC Automated NOT REPORTED Normal [facility] Comment on above: Performed By: #### C DP, HCG, LACTIC, ISABEL, CP, LIP #### [place] [address] Platelet mean volume Entitic volume (Bld) NOT REPORTED Normal 6.0-12.0 [facility] Comment on above: Performed By: #### C DP, HCG, LACTIC, ISABEL, CP, LIP #### [place] [address] Platelets #/vol (Bld) NOT REPORTED Normal [facility] Comment on above: Performed By: #### C DP, HCG, LACTIC, ISABEL, CP, LIP #### [place] [address] RBC morphology finding Nom (Bld) NOT REPORTED Normal [facility] Comment on above: Performed By: #### C DP, HCG, LACTIC, ISABEL, CP, LIP #### [facility] [address] [place] [address] WBC Morphology NOT REPORTED Normal [facility] Comment on above: Performed By: #### C DP, HCG, LACTIC, ISABEL, CP, LIP #### [facility] [address] [place] [address] Comp Metabolic Profon 2017 (cont.) Normal [facility] Comment on above: Result Comment: Aver age GFR for 20-29 years old: 116 mL/min/1.73sq m Chronic Kidney Disease: <60 mL/min/1.73sq m Kidney failure: <15 mL/min/1.73sq m eGFR calculated using average adult body mass. Additional eGFR calculator available at: http://www.Viewglass/multiple_crcl_2012.htm Performed By: #### SAMEERA Carcamo #### [facility] [address] [place] [address] ([phone]) Albumin mass conc 3.5 g/dL Normal 3.5-5.2 [facility] Comment on above: Performed By: #### SAMEERA Carcamo #### [facility] [address] [place] [address] ([phone]) Alkaline Phos 87 U/L Normal 35-104 [facility] Comment on above: Performed By: #### SAMEERA Carcamo #### [facility] [address] [place] [address] (504) ALT enzyme act/vol 6 U/L Normal 5-33 [facility] Comment on above: Performed By: #### SAMEERA Carcamo #### [facility] [address] [place] [address] (693) Anion gap molar conc 12 mmol/L Normal 9-17 [facility] Comment on above: Performed By: #### SAMEERA Carcamo #### [facility] [address] [place] [address] AST enzyme act/vol 13 U/L Normal <32 [facility] Comment on above: Performed By: #### SAMEERA Carcamo #### [facility] [address] [place] [address] Bilirubin Ql (U) 0.42 mg/dL Normal 0.30-1.20 [facility] Comment on above: Performed By: #### SAMEERA Carcamo #### [facility] [address] [place] [address] BUN/CRE Ratio 8 Low 9-20 [facility] Comment on above: Performed By: #### SAMEERA Carcamo #### [facility] [address] [place] [address] ([phone] Calcium mass conc 8.9 mg/dL Normal 8.6-10.4 [facility] Comment on above: Performed By: #### SAMEERA Carcamo #### [facility] [address] [place] [address] Chloride molar conc 102 mmol/L Normal 98-107 [facility] Comment on above: Performed By: #### SAMEERA Carcamo #### [facility] [address] [place] [address] CO2 molar conc 25 mmol/L Normal 20-31 [facility] Comment on above: Performed By: #### SAMEERA Carcamo #### [facility] [address] [place] [address] Creatinine mass conc 0.75 mg/dL Normal 0.50-0.90 [facility] Comment on above: Performed By: #### SAMEERA Carcamo #### [facility] [address] [place] [address] GFR, Amer >60 Normal >60 [facility] Comment on above: Performed By: #### SAMEERA Carcamo #### [facility] [address] [place] [address] GFR,non Amer >60 Normal >60 [facility] Comment on above: Performed By: #### U Angel, UMICAO #### [facility] [address] [place] [address] Glucose mass conc 124 mg/dL High 70-99 [facility] Comment on above: Performed By: #### U Angel, UMICAO #### [facility] [address] [place] [address] Potassium molar conc 3.3 mmol/L Low 3.7-5.3 [facility] Comment on above: Performed By: #### U Angel, UMICAO #### [facility] [address] [place] [address] Protein mass conc 7.4 g/dL Normal 6.4-8.3 [facility] Comment on above: Performed By: #### U Angel, UMICAO #### [facility] [address] [place] [address] Sodium molar conc 139 mmol/L Normal 135-144 [facility] Comment on above: Performed By: #### U Angel, UMICAO #### [facility] [address] [place] [address] Urea nitrogen mass conc 6 mg/dL Normal 6-20 [facility] Comment on above: Performed By: #### U Angel, UMICAO #### [facility] [address] [place] [address] Albumin/Globulin mass ratio NOT REPORTED Normal 1.0-2.5 [facility] Comment on above: Performed By: #### U A, UMICAO #### [facility] [address] [place] [address] Staging: NOT REPORTED Normal [facility] Comment on above: Performed By: #### U A, UMICAO #### [facility] [address] [place] [address] ([phone]) HCG Screen, Bloodon 09-14-20 18 HCG Qn Negative Normal NEG [facility] Comment on above: Result Comment: Spec imens with hCG levels near the threshold of the test (25 mIU/mL) may give a negative or indeterminate result. In such cases, another test should be performed with a new specimen in 48-72 hours. If early is suspected clinically in this setting, correlation with quantitative serum b-hCG level is suggested. [facility] has confirmed the use of plasma for this test. This has not been cleared or approved by the U.S. Food and Drug Administration. The FDA has determined that such clearance is not necessary. Performed By: #### C DP, HCG, LACTIC, ISABEL, CP, LIP #### [facility] [address] [place] [address] ([phone] Lactic Acidon 09-14-2018 Lactate molar conc 1.9 mmol/L Normal 0.5-2.2 [facility] Comment on above: Performed By: #### C DP, HCG, LACTIC, ISABEL, CP, LIP #### [facility] [address] [place] [address] (154) Lactate molar conc NOT REPORTED Normal 0.7-2.1 [facility] Comment on above: Performed By: #### C DP, HCG, LACTIC, ISABEL, CP, LIP #### [facility] [address] [place] [address] ([phone] Lipaseon 09-14-2018 Lipase enzyme act/vol 29 U/L Normal 13-60 [facility] Comment on above: Performed By: #### U Angel UMSTEFFO #### [facility] [address] [place] [address] [phone]) TESTOSTER.FREE-TOTALon 09-14 Testosterone mass conc 6 ng/dL Low 8-48 [facility] Comment on above: Result Comment: PERF ORMED AT [facility] Performed By: #### A CBC, CHEM7F, BHCG2 ####Testing performed at [facility] [place] [address] Urinalysis, Routineon 2017 Acetoacetic Acid,Ur Negative Normal NEG [facility] Comment on above: Performed By: #### U GINA OrtizICAO #### [facility] [address] [address] Bilirubin, SemiQt,Ur Negative Normal NEG [facility] Comment on above: Performed By: #### U Angel, UMICAO #### [facility] [address] [place] [address] Color Nom (U) YELLOW Normal YEL [facility] Comment on above: Performed By: #### U Angel UMSTEFFO #### [facility] [address] [place] [address] Comment Normal [facility] Comment on above: Performed By: #### U KAELYN OrtizO #### [facility] [address] [place] [address] Glucose,Semi-qnt,Ur Negative Normal NEG [facility] Comment on above: Performed By: #### U Angel UMICAO #### [facility] [address] [place] [address] Hemoglobin, Ur 2+ Abnormal NEG [facility] Comment on above: Performed By: #### U Angel, UMICAO #### [facility] [address] [place] [address] Leuckocyte Esterase 1+ Abnormal NEG [facility] Comment on above: Performed By: #### U Angel UMICAO #### [facility] [address] [place] [address] Nitrite,Ur Negative Normal NEG [facility] Comment on above: Performed By: #### U Angel UMICAO #### [facility] [address] [place] [address] PH,Ur 7.0 Normal 5.0-8.0 [facility] Comment on above: Performed By: #### SAMEERA Carcamo #### [facility] [address] [place] [address] Protein mass conc (U) Negative Normal NEG [facility] Comment on above: Performed By: #### SAMEERA Carcamo #### [facility] [address] [place] [id number] Spec. [place],Ur 1.010 Normal 1.005-1.030 [facility] Comment on above: Performed By: #### SAMEERA Carcamo #### [facility] [address] [place] [address] Turbidity HAZY Abnormal CLEAR [facility] Comment on above: Performed By: #### SAMEERA Carcamo #### [facility] [address] [id number] Urobilinogen,Ur Normal Normal NORM [facility] Comment on above: Performed By: #### SAMEERA Carcamo #### [facility] [address] [place] [address] Urinalysis,Microon 8 ----- Normal [facility] Comment on above: Performed By: #### SAMEERA Carcamo #### [facility] [address] [place] [address] Bacteria LM.HPF #/area (Urine sed) 1+ Abnormal NONE [facility] Comment on above: Performed By: #### SAMEERA Carcamo #### [facility] [address] [place] [address] Epithelial cells LM.HPF #/area (Urine sed) 5 TO 10 Normal [facility] Comment on above: Performed By: #### SAMEERA Carcamo #### [facility] [address] [place] [address] RBC #/vol (U) 2 TO 5 Normal 0-2 [facility] Comment on above: Performed By: #### U A, UMICAO #### [facility] [address] [place] [address] WBC #/vol (U) 2 TO 5 Normal 0 [facility] Comment on above: Performed By: #### U A, UMICAO #### [facility] [address] [place] [address] Amorphous sediment LM Ql (Urine sed) NOT REPORTED Normal NONE [facility] Comment on above: Performed By: #### U A, UMICAO #### [facility] [address] [place] [address] Casts LM.LPF #/area (Urine sed) NOT REPORTED Normal [facility] Comment on above: Performed By: #### U A, UMICAO #### [facility] [address] [place] [address] Crystals LM Nom (Urine sed) NOT REPORTED Normal NONE [facility] Comment on above: Performed By: #### U A, UMICAO #### [facility] [address] [place] [address] Epithelial, Renal NOT REPORTED Normal 0 [facility] Comment on above: Performed By: #### U A, UMICAO #### [facility] [address] [place] [address] Mucus Strands NOT REPORTED Normal NONE [facility] Comment on above: Performed By: #### U A, UMICAO #### [facility] [address] [place] [address] Other Observations NOT REPORTED Normal NREQ [facility] Comment on above: Performed By: #### U A, UMICAO #### [facility] [address] [place] [address] Trichomonas NOT REPORTED Normal NONE [facility] Comment on above: Performed By: #### U SAMEERA Ortiz #### [facility] [address] [place] [address] Yeast LM Ql (Urine sed) NOT REPORTED Normal NONE [facility] Comment on above: Performed By: #### U SAMEERA Ortiz #### [facility] [address] [place] [address] BMP FASTINGon 09-13-2018 Anion gap 3 molar conc 13 mmol/L Normal 8-16 [facility] Comment on above: Performed By: #### A CBC, CHEM7F, BHCG2 ####[place] [address] Calcium mass conc 9.4 mg/dL Normal 8.4-10.2 [facility] Comment on above: Performed By: #### A CBC, CHEM7F, BHCG2 ####[place] [address] Chloride molar conc 104 mmol/L Normal 98-107 [facility] Comment on above: Result Comment: Anna Marie willard note: Triglyceride levels of 600mg/dL or higher may positively bias chloride results by approximately 2.1 mmol Performed By: #### A CBC, CHEM7F, BHCG2 ####[place] [address] CO2 molar conc 24 mmol/L Normal 22-30 [facility] Comment on above: Performed By: #### A CBC, CHEM7F, BHCG2 ####[place] [address] Creatinine mass conc 0.8 mg/dL Normal 0.7-1.2 [facility] Comment on above: Performed By: #### A CBC, CHEM7F, BHCG2 ####[place] [address] EST. GFR, >60 Normal [facility] Comment on above: Performed By: #### A CBC, CHEM7F, BHCG2 ####[place] [address] EST. GFR,Non >60 Normal [facility] Comment on above: Performed By: #### A CBC, CHEM7F, BHCG2 ####[place] [address] GFR/1.73 sq M predicted among non-blacks MDRD vol rate/area (S/P/Bld) Average GFR for 20-29 years old = 116. Normal [facility] Comment on above: Result Comment: Repair Supervisor frantz Kidney disease, GFR = <60.Kidney failure, GFR = <15.The GFR estimate is not adjusted for extreme body surface area or acute process, nor has it been validated for women or ethnic groups other than and .Testing performed at [place] [address] Performed By: #### A CBC, CHEM7F, BHCG2 ####[place] [address] Glucose mass conc 119 mg/dL High 70-100 [facility] Comment on above: Result Comment: NORM AL <100 mg/dLPREDIABETES 101-126 mg/dLDIABETES 126 mg/dL or higher Performed By: #### A CBC, CHEM7F, BHCG2 ####[place] [address] Potassium molar conc 3.4 mmol/L Low 3.5-5.1 [facility] Comment on above: Performed By: #### A CBC, CHEM7F, BHCG2 ####[place] [address] Sodium molar conc 141 mmol/L Normal 137-145 [facility] Comment on above: Performed By: #### A CBC, CHEM7F, BHCG2 ####[place] [address] Urea nitrogen mass conc (Bld) 4 mg/dL Low 7-20 [facility] Comment on above: Performed By: #### A CBC, CHEM7F, BHCG2 ####[place] [address] CBCon 09-13-2018 ABSOLUTE BAS 0.0 X10 Normal [facility] Comment on above: Result Comment: Test ing performed at [place] [address] Performed By: #### A CBC, CHEM7F, BHCG2 ####[place] [address] ABSOLUTE EOS 0.10 X10 Normal [facility] Comment on above: Performed By: #### A CBC, CHEM7F, BHCG2 ####[place] [address] ABSOLUTE NEUTROPHIL COUNT 7.1 x10 High 1.0-7.0 [facility] Comment on above: Performed By: #### A CBC, CHEM7F, BHCG2 ####[place] [address] Basophils/100 WBC Auto (Bld) 0.3 % Normal 0.0-2.0 [facility] Comment on above: Performed By: #### A CBC, CHEM7F, BHCG2 ####[place] [address] DTYPE AUTO DIFF Normal [facility] Comment on above: Performed By: #### A CBC, CHEM7F, BHCG2 ####[place] [address] Eosinophils/100 WBC Auto (Bld) 0.6 % Normal 0.0-11.0 [facility] Comment on above: Performed By: #### A CBC, CHEM7F, BHCG2 ####[place] [address] Lymphocytes Auto #/vol (Bld) 1.80 X10 Normal [facility] Comment on above: Performed By: #### A CBC, CHEM7F, BHCG2 ####[place] [address] Lymphocytes/100 WBC Auto (Bld) 18.9 % Low 20.0-55.0 [facility] Comment on above: Performed By: #### A CBC, CHEM7F, BHCG2 ####[place] [address] Monocytes Auto #/vol (Bld) 0.3 X10 Normal [facility] Comment on above: Performed By: #### A CBC, CHEM7F, BHCG2 ####[place] [address] Monocytes/100 WBC Auto (Bld) 3.7 % Normal 0.0-10.0 [facility] Comment on above: Performed By: #### A CBC, CHEM7F, BHCG2 ####[place] [address] Neutrophils/100 WBC Auto (Bld) 76.5 % High 37.0-75.0 [facility] Comment on above: Performed By: #### A CBC, CHEM7F, BHCG2 ####[place] [address] Erythrocyte distribution width Auto Ratio (RBC) 16.8 % High 11.5-14.5 [facility] Comment on above: Performed By: #### A CBC, CHEM7F, BHCG2 ####[place] [address] Hematocrit Auto Volume Fraction (Bld) 34.3 % Low 36.0-48.0 [facility] Comment on above: Performed By: #### A CBC, CHEM7F, BHCG2 ####[place] [address] Hemoglobin mass conc (Bld) 10.8 g/dL Low 12.0-16.0 [facility] Comment on above: Performed By: #### A CBC, CHEM7F, BHCG2 ####[place] [address] MCH Auto Entitic mass (RBC) 24.5 pg Low 26.0-35.0 [facility] Comment on above: Performed By: #### A CBC, CHEM7F, BHCG2 ####[place] [address] MCHC Auto mass conc (RBC) 31.6 g/dL Normal 27.0-37.0 [facility] Comment on above: Performed By: #### A CBC, CHEM7F, BHCG2 ####[place] [address] MCV Auto Entitic volume (RBC) 77.5 fL Low 80.0-100.0 [facility] Comment on above: Performed By: #### A CBC, CHEM7F, BHCG2 ####[place] [address] Platelet mean volume Auto Entitic volume (Bld) 7.0 fL Low 7.4-11.0 [facility] Comment on above: Result Comment: Test ing performed at [place] [address] Performed By: #### A CBC, CHEM7F, BHCG2 ####[place] [address] Platelets Auto #/vol (Bld) 550 /cmm High 130.0-400.0 [facility] Comment on above: Performed By: #### A CBC, CHEM7F, BHCG2 ####[place] [address] RBC Auto #/vol (Bld) 4.42 /cmm Normal 4.0-5.4 [facility] Comment on above: Performed By: #### A CBC, CHEM7F, BHCG2 ####[place] [address] WBC Auto #/vol (Bld) 9.4 /cmm Normal 3.6-11.0 [facility] Comment on above: Performed By: #### A CBC, CHEM7F, BHCG2 ####[place] [address] GENITAL CULTUREon 09-13-2018 GENITAL CULTURE SPECIMEN DESCRIPTION [...] * * Result Note: Testing performed at [place] [address] *REPORT STATUS 09/15/2018 * Result Note: FINAL * Normal [facility] Comment on above: Performed By: #### G ENC ####[place] [address] HEMOGLOBIN A1Con 09-13-2018 Glucose mass conc 117 mg/dL Normal [facility] Comment on above: Result Comment: Test ing performed at [place] [address] Performed By: #### A CBC, CHEM7F, BHCG2 ####[place] [address] Hemoglobin A1c/Hemoglobin.total mass fraction (Bld) 5.7 % Normal 0-6 [facility] Comment on above: Result Comment: NORM AL <5.7%PREDIABETES 5.7-6.4%DIABETES 6.5% OR HIGHER Performed By: #### A CBC, CHEM7F, BHCG2 ####[place] [address] URINE CULTUREon 09-13-2018 Bacteria identified Cx Nom (U) SPECIMEN DESCRIPTION URINE CLEAN CATCHUA DIPSTICK NITRITE NEGATIVE * Result Note: LEUKOCYTE POSITIVE *CULTURE MULTIPLE SPECIES PRESENT;PROBABLE CONTAMINATION. SUGGEST REPEAT SPECIMEN. * Result Note: Testing performed at [place] [address] *REPORT STATUS 09/15/2018 * Result Note: FINAL * Normal [facility] Comment on above: Performed By: #### A CBC, CHEM7F, BHCG2 ####Testing performed at [address] [address] URINE MACROSCOPICon 09-13-20 18 Bilirubin Ql (U) Negative Normal NEGATIVE [facility] Comment on above: Performed By: #### A CBC, CHEM7F, BHCG2 ####[place] [address] Clarity Nom (U) CLEAR Normal CLEAR [facility] Comment on above: Performed By: #### A CBC, CHEM7F, BHCG2 ####Testing performed at [place] [id number] Color Nom (U) YELLOW Normal YELLOW [facility] Comment on above: Performed By: #### A CBC, CHEM7F, BHCG2 ####[place] [address] Glucose Ql (U) Negative Normal NEGATIVE [facility] Comment on above: Performed By: #### A CBC, CHEM7F, BHCG2 ####Testing performed at [place] [id number] pH Test strip (U) 7.5 [pH] High 5.0-7.0 [facility] Comment on above: Performed By: #### A CBC, CHEM7F, BHCG2 ####[place] [address] URINE HEMOGLOBIN MODERATE Abnormal NEGATIVE [facility] Comment on above: Performed By: #### A CBC, CHEM7F, BHCG2 ####Testing performed at [place] [id number] URINE KETONE Negative Normal NEGATIVE [facility] Comment on above: Performed By: #### A CBC, CHEM7F, BHCG2 ####[place] [address] URINE LEUKOTEST TRACE Abnormal NEGATIVE [facility] Comment on above: Result Comment: Test ing performed at [place] [address] Performed By: #### A CBC, CHEM7F, BHCG2 ####[place] [address] URINE NITRATES Negative Normal NEGATIVE [facility] Comment on above: Performed By: #### A CBC, CHEM7F, BHCG2 ####[place] [address] URINE SPEC GRAVITY 1.015 Normal 1.010-1.025 [facility] Comment on above: Performed By: #### A CBC, CHEM7F, BHCG2 ####[place] [address] URINE TOTAL PROTEIN Negative Normal NEGATIVE [facility] Comment on above: Performed By: #### A CBC, CHEM7F, BHCG2 ####[place] [address] Urobilinogen Test strip Qn (U) 0.2 mg/dl Normal 0.2-1.0 [facility] Comment on above: Performed By: #### A CBC, CHEM7F, BHCG2 ####[place] [address] URINE MICROSCOPICon 09-13-20 18 BACTERIA TRACE Abnormal NEGATIVE [facility] Comment on above: Performed By: #### A CBC, CHEM7F, BHCG2 ####[place] [address] CASTS NONE [facility] Comment on above: Performed By: #### A CBC, CHEM7F, BHCG2 ####[place] [address] CRYSTAL NONE [facility] Comment on above: Performed By: #### A CBC, CHEM7F, BHCG2 ####[place] [address] EPITHELIAL CELLS 1 TO 5 Normal [facility] Comment on above: Performed By: #### A CBC, CHEM7F, BHCG2 ####[place] [address] MUCUS TRACE Abnormal NEGATIVE [facility] Comment on above: Performed By: #### A CBC, CHEM7F, BHCG2 ####[place] [address] RBC Test strip #/vol (U) 5 TO 10 Normal NEGATIVE [facility] Comment on above: Performed By: #### A CBC, CHEM7F, BHCG2 ####[place] [address] URINE COMMENT PHYSICIAN REQUESTED CULTURE Normal [facility] Comment on above: Result Comment: Test ing performed at [place] [address] Performed By: #### A CBC, CHEM7F, BHCG2 ####[place] [address] URINE WBC'S 1 TO 5 Normal NEGATIVE [facility] Comment on above: Performed By: #### A CBC, CHEM7F, BHCG2 ####[place] [address] XR CHEST PA/APon 09-06-2018 XR CHEST PA/AP [...] infiltrate within the right lung base.JLL/awWorkstation ID: [id number] by: EHSAN SAMUEL on SunSep 06, 2018 10:44:43 AM EDTTranscribed by: SHALOM LOPEZ on SunSep 06, 2018 11:09:51 AM EDTFinalized by: EHSAN SAMUEL on SunSep 06, 2018 11:25:32 AM EDT [facility] Comment on above: Order Comment: Reaso [...] with possible developing infiltrate. Invalid Interpretation Code trinket Cardiomegaly and mod erate pulmonary vascular congestion. Atelectatic changes and possible infiltrate within the right lung base. Involver/Powered Workstation ID: [id number] Invalid Interpretation Code trinket Interface, Rad Bandar Arevalo ji Speechq - [...] possible infiltrate within the right lung base. Involver/Powered Workstation ID: [id number] Invalid Interpretation Code trinket CBCon 09-05-2018 Erythrocyte distribution width Auto Entitic volume (RBC) 16.2 % High 11.6 - 14.8 % [facility] Hematocrit Auto Volume Fraction (Bld) 30.9 % Low 36 - 46 % [facility] Hemoglobin mass conc (Bld) 9.3 g/dL Low 12 - 16 g/dL [facility] Interpretation and review of laboratory results Abnormal Invalid Interpretation Code [facility] MCH Auto Entitic mass (RBC) 24.8 pg Low 26 - 34 pg [facility] MCHC Auto mass conc (RBC) 30.1 g/dL Low 31 - 37 g/dL [facility] MCV Auto Entitic volume (RBC) 82.4 fL Invalid Interpretation Code 80 - 100 fL [facility] Nucleated RBC #/vol (Bld) 0.00 10*3/uL Invalid Interpretation Code [facility] Nucleated RBC/100 WBC Ratio (Bld) 0.0 % Invalid Interpretation Code [facility] Platelet mean volume Auto Entitic volume (Bld) 11.9 fL Invalid Interpretation Code 9 - 15.5 fL [facility] Platelets Auto #/vol (Bld) 102 10*3/uL Low [facility] Comment on above: FEW CLUMPED PLATELET S SEEN RBC Auto #/vol (Bld) 3.75 10*6/uL Low [facility] WBC Auto #/vol (Bld) 4.66 10*3/uL Invalid Interpretation Code [facility] Chem 7on 09-05-2018 Anion gap 3 molar conc 17 mmol/L Invalid Interpretation Code 10 - 20 mmol/L [facility] Chloride molar conc 99 mmol/L Invalid Interpretation Code 98 - 108 mmol/L [facility] Creatinine mass conc 1.02 mg/dL Invalid Interpretation Code 0.4 - 1.1 mg/dL [facility] GFR/1.73 sq M predicted among non-blacks MDRD vol rate/area (S/P/Bld) The eGFR should be used for monitoring renal function only and not for medication dosing. Invalid Interpretation Code [facility] GFR/1.73 sq M.predicted CKD-EPI vol rate/area (S/P/Bld) 75 Invalid Interpretation Code >=60 mL/min/1.73 m2 [facility] Glucose mass conc 99 mg/dL Invalid Interpretation Code 65 - 99 mg/dL [facility] HCO3 molar conc 24 mmol/L Invalid Interpretation Code 21 - 32 mmol/L [facility] Interpretation and review of laboratory results Abnormal Invalid Interpretation Code [facility] Potassium molar conc 3.5 mmol/L Invalid Interpretation Code 3.5 - 5.1 mmol/L [facility] Sodium molar conc 136 mmol/L Invalid Interpretation Code 135 - 145 mmol/L [facility] Urea nitrogen mass conc 7 mg/dL Low 8 - 25 mg/dL [facility] Urea nitrogen/Creatinine mass ratio 6.9 mg/mg Low [facility] CBCon 09-04-2018 Erythrocyte distribution width Auto Entitic volume (RBC) 16.2 % High 11.6 - 14.8 % [facility] Hematocrit Auto Volume Fraction (Bld) 30.7 % Low 36 - 46 % [facility] Hemoglobin mass conc (Bld) 9.5 g/dL Low 12 - 16 g/dL [facility] Interpretation and review of laboratory results Abnormal Invalid Interpretation Code [facility] MCH Auto Entitic mass (RBC) 25.2 pg Low 26 - 34 pg [facility] MCHC Auto mass conc (RBC) 30.9 g/dL Low 31 - 37 g/dL [facility] MCV Auto Entitic volume (RBC) 81.4 fL Invalid Interpretation Code 80 - 100 fL [facility] Nucleated RBC #/vol (Bld) 0.00 10*3/uL Invalid Interpretation Code [facility] Nucleated RBC/100 WBC Ratio (Bld) 0.0 % Invalid Interpretation Code [facility] Platelet mean volume Auto Entitic volume (Bld) 11.2 fL Invalid Interpretation Code 9 - 15.5 fL [facility] Platelets Auto #/vol (Bld) 134 10*3/uL Low [facility] RBC Auto #/vol (Bld) 3.77 10*6/uL Low [facility] WBC Auto #/vol (Bld) 5.51 10*3/uL Invalid Interpretation Code [facility] CLOSTRIDIUM DIFFICILE TOXIN PCRon 09-04-2018 C. difficile toxin genes JYOTI+probe Ql (St) Negative Invalid Interpretation Code Toxigenic C.diff NEGATIVE [facility] Epidemiologic Marker [id number] Negative Invalid Interpretation Code [id number] PRESUMPTIVE NEGATIVE [facility] Interpretation and review of laboratory results Normal Invalid Interpretation Code [facility] Comprehensive Metabolic Pane guille 09-04-2018 Albumin mass conc 2.8 g/dL Low 3.2 - 5.2 g/dL [facility] ALP enzyme act/vol 69 U/L Invalid Interpretation Code 40 - 140 U/L [facility] ALT enzyme act/vol 13 U/L Invalid Interpretation Code 0 - 40 U/L [facility] Anion gap 3 molar conc 19 mmol/L Invalid Interpretation Code 10 - 20 mmol/L [facility] AST enzyme act/vol 33 U/L Invalid Interpretation Code 0 - 45 U/L [facility] Bilirubin mass conc 0.4 mg/dL Invalid Interpretation Code 0 - 1.3 mg/dL [facility] Calcium mass conc 8.6 mg/dL Invalid Interpretation Code 8.4 - 10.2 mg/dL [facility] Chloride molar conc 97 mmol/L Low 98 - 108 mmol/L [facility] Creatinine mass conc 1.11 mg/dL High 0.4 - 1 .1 mg/dL [facility] GFR/1.73 sq M predicted among non-blacks MDRD vol rate/area (S/P/Bld) The eGFR should be used for monitoring renal function only and not for medication dosing. Invalid Interpretation Code [facility] GFR/1.73 sq M.predicted CKD-EPI vol rate/area (S/P/Bld) 67 Invalid Interpretation Code >=60 mL/min/1.73 m2 [facility] Glucose mass conc 99 mg/dL Invalid Interpretation Code 65 - 99 mg/dL [facility] HCO3 molar conc 20 mmol/L Low 21 - 32 mmol/L [facility] Interpretation and review of laboratory results Abnormal Invalid Interpretation Code [facility] Potassium molar conc 3.8 mmol/L Invalid Interpretation Code 3.5 - 5.1 mmol/L [facility] Protein mass conc 6.9 g/dL Invalid Interpretation Code 6 - 8 g/dL [facility] Sodium molar conc 132 mmol/L Low 135 - 145 mmol/L [facility] Urea nitrogen mass conc 8 mg/dL Invalid Interpretation Code 8 - 25 mg/dL [facility] Urea nitrogen/Creatinine mass ratio 7.2 mg/mg Low [facility] BLOOD GAS, VBG WITH FULL GONZALEZ Michael 09-03-2018 Base excess Calculated molar conc (BldV) -1.4 Invalid Interpretation Code [facility] Calcium.ionized mass conc 4.5 mg/dL Invalid Interpretation Code 4.5 - 5.3 mg/dL [facility] Carboxyhemoglobin/Hem oglobin.total mass fraction (BldA) 1.2 Invalid Interpretation Code [facility] Comment on above: Reference Ranges: [...] Invalid Interpretation Code 0.6 - 2 mmol/L [facility] Methemoglobin/Hemoglo bin.total mass fraction (BldA) 0.3 % Invalid Interpretation Code 0 - 2 % [facility] Oxygen ppres (BldV) 62 High [facility] Oxygen saturation in Venous blood 92.6 % Invalid Interpretation Code [facility] Oxyhemoglobin/Hemoglo bin.total mass fraction (BldA) 91.3 % Low 94 - 98 % [facility] pH (BldV) 7.47 High [facility] Potassium molar conc 3.7 mmol/L Invalid Interpretation Code 3.5 - 5.1 mmol/L [facility] Sodium molar conc 132 mmol/L Low 135 - 145 mmol/L [facility] Type of Oxygen saturation device Room Air Invalid Interpretation Code [facility] BMPon 09-03-2018 Anion gap 3 molar conc 20 mmol/L Invalid Interpretation Code 10 - 20 mmol/L [facility] Calcium mass conc 9.3 mg/dL Invalid Interpretation Code 8.4 - 10.2 mg/dL [facility] Chloride molar conc 94 mmol/L Low 98 - 108 mmol/L [facility] Creatinine mass conc 1.19 mg/dL High 0.4 - 1 .1 mg/dL [facility] GFR/1.73 sq M predicted among non-blacks MDRD vol rate/area (S/P/Bld) The eGFR should be used for monitoring renal function only and not for medication dosing. Invalid Interpretation Code [facility] GFR/1.73 sq M.predicted CKD-EPI vol rate/area (S/P/Bld) 62 Invalid Interpretation Code >=60 mL/min/1.73 m2 [facility] Glucose mass conc 142 mg/dL High 65 - 99 mg/dL [facility] HCO3 molar conc 19 mmol/L Low 21 - 32 mmol/L [facility] Interpretation and review of laboratory results Abnormal Invalid Interpretation Code [facility] Potassium molar conc 4.2 mmol/L Invalid Interpretation Code 3.5 - 5.1 mmol/L [facility] Comment on above: Specimen slightly he molyzed Sodium molar conc 129 mmol/L Low 135 - 145 mmol/L [facility] Urea nitrogen mass conc 10 mg/dL Invalid Interpretation Code 8 - 25 mg/dL [facility] Urea nitrogen/Creatinine mass ratio 8.4 mg/mg Low [facility] CBC WITH AUTO DIFFERENTIALon 09-03-2018 Basophils Auto #/vol (Bld) 0.03 10*3/uL Invalid Interpretation Code [facility] Basophils/100 WBC Auto (Bld) 0.2 % Invalid Interpretation Code [facility] Eosinophils Auto #/vol (Bld) 0.00 10*3/uL Invalid Interpretation Code [facility] Eosinophils/100 WBC Auto (Bld) 0.0 % Invalid Interpretation Code [facility] Erythrocyte distribution width Auto Entitic volume (RBC) 15.7 % High 11.6 - 14.8 % [facility] Hematocrit Auto Volume Fraction (Bld) 32.8 % Low 36 - 46 % [facility] Hemoglobin mass conc (Bld) 10.6 g/dL Low 12 - 16 g/dL [facility] Immature granulocytes #/vol (Bld) 0.13 10*3/uL Invalid Interpretation Code [facility] Immature granulocytes/100 WBC (Bld) 1.00 % Invalid Interpretation Code [facility] Comment on above: The IG parameter is the percentage of metamyelocytes, myelocytes, and promyelocytes. Interpretation and review of laboratory results Abnormal Invalid Interpretation Code [facility] Lymphocytes Auto #/vol (Bld) 0.61 10*3/uL Low [facility] Lymphocytes/100 WBC Auto (Bld) 4.8 % Invalid Interpretation Code [facility] MCH Auto Entitic mass (RBC) 25.0 pg Low 26 - 34 pg [facility] MCHC Auto mass conc (RBC) 32.3 g/dL Invalid Interpretation Code 31 - 37 g/dL [facility] MCV Auto Entitic volume (RBC) 77.4 fL Low 80 - 100 fL [facility] Monocytes Auto #/vol (Bld) 1.18 10*3/uL [...] EXAMINATION:CT OF THE ABDOMEN AND PELVIS WITH [id number]/30/2018 11:48 amTECHNIQUE:CT of the abdomen and pelvis [...] in the right hemicolon, suggesting diarrhea.Workstation ID: [id number] by: RANJAN GRANGER on SunSep 03, 2018 11:54:10 AM EDTTranscribed by: RANJAN GRANGER on SunSep 03, 2018 11:54:10 AM EDTFinalized by: RANJAN GRANGER on SunSep 03, 2018 11:54:10 AM EDT [facility] Comment on above: Order Comment: Reaso [...] nor suspicious osseous lesions. Invalid Interpretation Code trinket 1. Findings of bilat eral pyelonephritis, appearing more severe on the right. 2. Fluid distention of a few small bowel loops could be related to mild enteritis but could also be physiologic or related to recent ingestion. Of note, there are no findings suggestive of active Crohn disease. 3. Liquid stool in the right hemicolon, suggesting diarrhea. Workstation ID: [id number] Invalid Interpretation Code [facility] [place] Interface, Rad In Fu ji Speechq - [...] Workstation ID: [id number] Invalid Interpretation Code [facility] Hepatic Function Panel (LFT) on 09-03-2018 Albumin mass conc 3.8 g/dL Invalid Interpretation Code 3.2 - 5.2 g/dL [facility] ALP enzyme act/vol 89 U/L Invalid Interpretation Code 40 - 140 U/L [facility] ALT enzyme act/vol 14 U/L Invalid Interpretation Code 0 - 40 U/L [facility] AST enzyme act/vol 41 U/L Invalid Interpretation Code 0 - 45 U/L [facility] Comment on above: Specimen slightly he molyzed Bilirubin mass conc 0.7 mg/dL Invalid Interpretation Code 0 - 1.3 mg/dL [facility] Bilirubin.conjugated mass conc mg/dL Invalid Interpretation Code 0 - 0.4 mg/dL [facility] Interpretation and review of laboratory results Abnormal Invalid Interpretation Code [facility] Protein mass conc 8.2 g/dL High 6 - 8 g/dL [facility] Lactic Acid, Plasmaon 2017 Interpretation and review of laboratory results Normal Invalid Interpretation Code [facility] Lactate molar conc 1.2 mmol/L Invalid [...] Ql (U) Negative Invalid Interpretation Code Negative [facility] Internal Control Pass Invalid Interpretation Code [facility] Interpretation and review of laboratory results Normal Invalid Interpretation Code [facility] Specific gravity Relative Density (U) Invalid Interpretation Code [facility] URINALYSISon 09-03-2018 Bacteria Auto Ql (U) Many Abnormal None Se en /hpf [facility] Bilirubin Ql (U) Negative Invalid Interpretation Code Negative [facility] Clarity Refractometry automated Nom (U) Cloudy [...] test strip Ql (U) Large Abnormal Negative [facility] Mucus Auto #/area (Urine sed) Rare [...] Relative Density (U) 1.015 Invalid Interpretation Code [facility] Urobilinogen Test strip Qn (U) <2.0 [...] quantified by microscopic examination. Invalid Interpretation Code [facility] Cult,Urineon 09-02-2018 Cult,Urine Specimen Description .URINE Special Requests NOT REPORTED Culture ESCHERICHIA COLI >[id number] CFU/ML Report Status FINAL 09/02/2018 SUSCEPTIBILITY Organism [...] Trimethoprim/Sulfa >=320 RESISTANT Piperacillin/Tazobactam <=4 SUSCEPTIBLE Normal [facility] Comment on above: Performed By: #### U RC #### [address] [address] [phone] CBC with Diffon 08-31-2018 Abs. Basophil 0.00 k/uL Normal 0.0-0.2 [facility] Comment on above: Performed By: #### C DP, CP #### [address] [address] ([phone] Abs.Neutrophil (Seg) 12.70 k/uL High 2.5-7.0 [facility] Comment on above: Performed By: #### C DP, CP #### [address] [address] ([phone]) Auto Diff Performed YES Normal [facility] Comment on above: Performed By: #### C DP, CP #### [address] [address] Basophils/100 WBC (Bld) 0 % Normal 0-2 [facility] Comment on above: Performed By: #### C DP, CP #### [facility] [address] [place] [address] Eosinophils #/vol (Bld) 0.00 10*3/uL Normal 0.0-0.4 [facility] Comment on above: Performed By: #### C DP, CP #### [facility] [address] [place] [address] Eosinophils/100 WBC (Bld) 0 % Normal 0-5 [facility] Comment on above: Performed By: #### C DP, CP #### [facility] [address] [place] [address] Erythrocyte distribution width Ratio (RBC) 16.8 % High 12.1-15.2 [facility] Comment on above: Performed By: #### C DP, CP #### [facility] [address] [place] [address] Hematocrit Volume Fraction (Bld) 41.0 % Normal 36-46 [facility] Comment on above: Performed By: #### C DP, CP #### [facility] [address] [place] [address] Hemoglobin mass conc (Bld) 13.2 g/dL Normal 12.0-16.0 [facility] Comment on above: Performed By: #### C DP, CP #### [facility] [address] [place] [address] Lymphocytes #/vol (Bld) 2.10 10*3/uL Normal 1.0-4.8 [facility] Comment on above: Performed By: #### C DP, CP #### [facility] [address] [place] [address] Lymphocytes/100 WBC (Bld) 13 % Low 15-40 [facility] Comment on above: Performed By: #### C DP, CP #### [facility] [address] [place] [address] MCH Entitic mass (RBC) 25.0 pg Low 26-34 [facility] Comment on above: Performed By: #### C DP, CP #### [facility] [address] [place] [id number] MCHC mass conc (RBC) 32.2 g/dL Normal 31-37 [facility] Comment on above: Performed By: #### C DP, CP #### [facility] [address] [place] [address] MCV Entitic volume (RBC) 77.7 fL Low 80-100 [facility] Comment on above: Performed By: #### C DP, CP #### [facility] [address] [place] [address] Monocytes #/vol (Bld) 1.20 10*3/uL High 0.0-1.0 [facility] Comment on above: Performed By: #### C DP, CP #### [facility] [address] [place] [address] Monocytes/100 WBC (Bld) 8 % Normal 4-8 [facility] Comment on above: Performed By: #### C DP, CP #### [facility] [address] [place] [address] Neutrophil (Seg) 79 % High 47-75 [facility] Comment on above: Performed By: #### C DP, CP #### [facility] [address] [place] [address] Platelets #/vol (Bld) 312 10*3/uL Normal 140-450 [facility] Comment on above: Performed By: #### C DP, CP #### [facility] [address] [place] [address] RBC #/vol (Bld) 5.28 10*6/uL High 4.0-5.2 [facility] Comment on above: Performed By: #### C DP, CP #### [facility] [address] [place] [address] WBC #/vol (Bld) 16.1 10*3/uL High 3.5-11.0 [facility] Comment on above: Performed By: #### C DP, CP #### [facility] [address] [place] [address] Abs.Imm.Granulocyte NOT REPORTED Normal 0.00-0.30 [facility] Comment on above: Performed By: #### C DP, CP #### [facility] [address] [place] [address] Immature granulocytes #/vol (Bld) NOT REPORTED Normal 0 [facility] Comment on above: Performed By: #### C DP, CP #### [facility] [address] [place] [id number] NRBC Automated NOT REPORTED Normal [facility] Comment on above: Performed By: #### C DP, CP #### [facility] [address] [place] [address] Platelet mean volume Entitic volume (Bld) NOT REPORTED Normal 6.0-12.0 [facility] Comment on above: Performed By: #### C DP, CP #### [facility] [address] [place] [address] Platelets #/vol (Bld) NOT REPORTED Normal [facility] Comment on above: Performed By: #### C DP, CP #### [facility] [address] [place] [address] RBC morphology finding Nom (Bld) NOT REPORTED Normal [facility] Comment on above: Performed By: #### C DP, CP #### [facility] [address] [address] WBC Morphology NOT REPORTED Normal [facility] Comment on above: Performed By: #### C CORY CANTU #### [facility] [address] [address] CT ABDOMEN PELVIS WO CONTRAS Ton 08-31-2018 [...] Maycol Hedrick MD 08/31/18 Final result Normal [facility] Comp Metabolic Profon 2017 (cont.) Normal [facility] Comment on above: Result Comment: Aver age GFR for 20-29 years old: 116 mL/min/1.73sq m Chronic Kidney Disease: <60 mL/min/1.73sq m Kidney failure: <15 mL/min/1.73sq m eGFR calculated using average adult body mass. Additional eGFR calculator available at: http://www.[employer].Coderwall/multiple_crcl_2012.htm Performed By: #### C CORY CANTU #### [facility] [address] [place] [address] (601 Albumin mass conc 4.4 g/dL Normal 3.5-5.2 [facility] Comment on above: Performed By: #### C DP, CP #### [facility] [address] [place] [address] Alkaline Phos 99 U/L Normal 35-104 [facility] Comment on above: Performed By: #### C DP, CP #### [facility] [address] [place] [address] ALT enzyme act/vol 12 U/L Normal 5-33 [facility] Comment on above: Performed By: #### C DP, CP #### [facility] [address] [place] [address] (990) Anion gap molar conc 14 mmol/L Normal 9-17 [facility] Comment on above: Performed By: #### C DP, CP #### [facility] [address] [place] [address] AST enzyme act/vol 12 U/L Normal <32 [facility] Comment on above: Performed By: #### C DP, CP #### [facility] [address] [place] [address] Bilirubin Ql (U) 1.43 mg/dL High 0.30-1.20 [facility] Comment on above: Performed By: #### C DP, CP #### [facility] [address] [place] [address] BUN/CRE Ratio 7 Low 9-20 [facility] Comment on above: Performed By: #### C DP, CP #### [facility] [address] [place], [place] [phone] (259 Calcium mass conc 9.9 mg/dL Normal 8.6-10.4 [facility] Comment on above: Performed By: #### C DP, CP #### [facility] [address] [place] [address] Chloride molar conc 99 mmol/L Normal 98-107 [facility] Comment on above: Performed By: #### C DP, CP #### [facility] [address] [place] [address] CO2 molar conc 22 mmol/L Normal 20-31 [facility] Comment on above: Performed By: #### C DP, CP #### [facility] [address] [place] [address] Creatinine mass conc 1.12 mg/dL High 0.50-0.90 [facility] Comment on above: Performed By: #### C DP, CP #### [facility] [address] [place] [address] GFR, Amer >60 Normal >60 [facility] Comment on above: Performed By: #### C DP, CP #### [facility] [address] [place] [address] GFR,non Amer 58 mL/min Low >60 [facility] Comment on above: Performed By: #### C DP, CP #### [facility] [address] [place] [address] Glucose mass conc 155 mg/dL High 70-99 [facility] Comment on above: Performed By: #### C DP, CP #### [facility] [address] [place] [address] Potassium molar conc 3.5 mmol/L Low 3.7-5.3 [facility] Comment on above: Performed By: #### C DP, CP #### [facility] [address] [place] [address] Protein mass conc 8.6 g/dL High 6.4-8.3 [facility] Comment on above: Performed By: #### C DP, CP #### [facility] [address] [place] [address] Sodium molar conc 135 mmol/L Normal 135-144 [facility] Comment on above: Performed By: #### C DP, CP #### [facility] [address] [place] [address] Urea nitrogen mass conc 8 mg/dL Normal 6-20 [facility] Comment on above: Performed By: #### C DP, CP #### [facility] [address] [place] [address] Albumin/Globulin mass ratio NOT REPORTED Normal 1.0-2.5 [facility] Comment on above: Performed By: #### C DP, CP #### [facility] [address] [place] [address] Staging: NOT REPORTED Normal [facility] Comment on above: Performed By: #### C DP, CP #### [facility] [address] [place] [address] Urinalysis, Routineon 2017 Acetoacetic Acid,Ur Negative Normal NEG [facility] Comment on above: Performed By: #### SAMEERA Carcamo #### [facility] [address] [place] [address] Bilirubin, SemiQt,Ur Negative Normal NEG [facility] Comment on above: Performed By: #### SAMEERA Carcamo #### [facility] [address] [place] [address] Color Nom (U) YELLOW Normal YEL [facility] Comment on above: Performed By: #### U KAELYN OrtizO #### [facility] [address] [place] [address] Comment Normal [facility] Comment on above: Performed By: #### U Angel UMSTEFFO #### [facility] [address] [place] [address] Glucose,Semi-qnt,Ur Negative Normal NEG [facility] Comment on above: Performed By: #### U A, UMICAO #### [facility] [address] [place] [address] Hemoglobin, Ur 3+ Abnormal NEG [facility] Comment on above: Performed By: #### U A, UMICAO #### [facility] [address] [place] [address] Leuckocyte Esterase 3+ Abnormal NEG [facility] Comment on above: Performed By: #### U A, UMICAO #### [facility] [address] [place] [address] Nitrite,Ur Negative Normal NEG [facility] Comment on above: Performed By: #### U A, UMICAO #### [facility] [address] [place] [address] PH,Ur 6.0 Normal 5.0-8.0 [facility] Comment on above: Performed By: #### U Angel, UMICAO #### [facility] [address] [place] [address] Protein mass conc (U) 2+ Abnormal NEG [facility] Comment on above: Performed By: #### U A, UMICAO #### [facility] [address] [place] [address] Spec. [place],Ur 1.020 Normal 1.005-1.030 [facility] Comment on above: Performed By: #### U A, UMICAO #### [facility] [address] [place] [address] Turbidity CLEAR Normal CLEAR [facility] Comment on above: Performed By: #### U A, UMICAO #### [facility] [address] [place] [address] Urobilinogen,Ur Normal Normal NORM [facility] Comment on above: Performed By: #### U A, UMICAO #### [facility] [address] [place] [address] Urinalysis,Microon 8 ----- Normal [facility] Comment on above: Performed By: #### U A, UMICAO #### [facility] [address] [place] [address] Bacteria LM.HPF #/area (Urine sed) 1+ Abnormal NONE [facility] Comment on above: Performed By: #### U A, UMICAO #### [facility] [address] [place] [address] Epithelial cells LM.HPF #/area (Urine sed) 2 TO 5 Normal [facility] Comment on above: Performed By: #### U Angel UMICAO #### [place] [address] RBC #/vol (U) 50 TO 100 Normal 0-2 [facility] Comment on above: Performed By: #### U Angel UMICAO #### [place] [address] WBC #/vol (U) 20 TO 50 Normal 0 [facility] Comment on above: Performed By: #### U A UMICAO #### [facility] [address] [place] [address] Amorphous sediment LM Ql (Urine sed) NOT REPORTED Normal [facility] Comment on above: Performed By: #### U A UMICAO #### [facility] [address] [place] [address] Casts LM.LPF #/area (Urine sed) NOT REPORTED Normal [facility] Comment on above: Performed By: #### U A UMICAO #### [place] [address] Crystals LM Nom (Urine sed) NOT REPORTED Normal NONE [facility] Comment on above: Performed By: #### U A, UMICAO #### [facility] [address] [place], [place] [phone] (298) Epithelial, Renal NOT REPORTED Normal 0 [facility] Comment on above: Performed By: #### U A, UMICAO #### [facility] [address] [address] Mucus Strands NOT REPORTED Normal NONE [facility] Comment on above: Performed By: #### U A, UMICAO #### [facility] [address] [address] Other Observations NOT REPORTED Normal NREQ [facility] Comment on above: Performed By: #### U A, UMICAO #### [facility] [address] [address] Trichomonas NOT REPORTED Normal NONE [facility] Comment on above: Performed By: #### U A, UMICAO #### [facility] [address] [place] [address] Yeast LM Ql (Urine sed) NOT REPORTED Normal NONE [facility] Comment on above: Performed By: #### U A, UMICAO #### [facility] [address] [place] [address] Alcohol, Medicalon 8 Ethanol mass conc Negative Normal [facility] Comment on above: Performed By: #### A LC, HCGQL ####Unless otherwise noted, all testing performed by [facility], [place] [phone]: [id number] Director: Geronimo Ibrahim M.D. Drugs of Abuse, Urineon 10-0 Amphetamines,Ur None Detected Normal None Detected [facility] Comment on above: Performed By: #### D RUGSCRU ####Unless otherwise noted, all testing performed by [address] [phone]: [id number] Director: Geronimo Ibrahim M.D. Barbiturates,Ur None Detected Normal None Detected [facility] Comment on above: Performed By: #### D RUGSCRU ####Unless otherwise noted, all testing performed by [place] [address]CLIA: [id number] Director: Geronimo Ibrahim M.D. Benzodiazepine,Ur None Detected Normal None [facility] Comment on above: Performed By: #### D RUGSCRU ####Unless otherwise noted, all testing performed by [address] [phone]: [id number] Director: Geronimo Ibrahim M.D. Cannabinoids,Ur Positive Abnormal None [facility] Comment on above: Performed By: #### D RUGSCRU ####Unless otherwise noted, all testing performed by [place] [address]CLIA: [id number] Director: Geronimo Ibrahim M.D. Cocaine,Ur None Detected Normal None Detected [facility] Comment on above: Performed By: #### D RUGSCRU ####Unless otherwise noted, all testing performed by [address] [phone]: [id number] Director: Geronimo Ibrahim M.D. DOA Cutoffs See comment. Normal [facility] Comment on above: Result Comment: Drug s of Abuse, Urine Presumptive Positive Cutoff Concentrations.Amphetamine/Methamphetamine: 1000 ng/mlBarbiturates: 200 ng/mlBenzodiazepines and metabolities: 200 ng/mlCannabinoids: 50 ng/mlCocaine/Benzoylecgonine: 300 ng/mlMethadone:300 ng/mlOpiates: 300 ng/mlOxycodone/Oxymorphone: 100 ng/ml Performed By: #### D RUGSCRU ####Unless otherwise noted, all testing performed by [address] [phone]: [id number] Director: Geronimo Ibrahim M.D. Methadone,Ur None Detected Normal None Detected [facility] Comment on above: Performed By: #### D RUGSCRU ####Unless otherwise noted, all testing performed by [address] [phone]: [id number] Director: Geronimo Ibrahim M.D. Opiates,Ur None Detected Normal None Detected [facility] Comment on above: Performed By: #### D RUGSCRU ####Unless otherwise noted, all testing performed by [address] [phone]: [id number] Director: Geronimo Ibrahim M.D. Oxycodone, Urine None Detected Normal None Detected [facility] Comment on above: Result Comment: THES E DRUGS OF ABUSE TESTS ARE PROVIDED A MEDICAL SCREENING ONLY.POSITIVE RESULTS ARENOT CONFIRMED BY GCMS Performed By: #### D FAUSTINO ####Unless otherwise noted, all testing performed by [address] [phone]: [id number] Director: Geronimo Ibrahim M.D. HCG, Qualitativeon 8 HCG, Qualitative Negative Normal [facility] Comment on above: Result Comment: Nega tive: The result is less than or equal to 5 mIU/mL of HCG. Performed By: #### A LC, HCGQL ####Unless otherwise noted, all testing performed by [place] [address] [address] [place], [place] [phone]: [id number] Director: Geronimo Ibrahim M.D. CBCon 07-31-2018 ABSOLUTE BAS 0.1 X10 Normal [facility] Comment on above: Result Comment: Test ing performed at [place] [address] Performed By: #### A CBC, CHEM7F, BHCG2 ####[place] [address] ABSOLUTE EOS 0.10 X10 Normal [facility] Comment on above: Performed By: #### A CBC, CHEM7F, BHCG2 ####[place] [address] ABSOLUTE NEUTROPHIL COUNT 5.3 x10 Normal 1.0-7.0 [facility] Comment on above: Performed By: #### A CBC, CHEM7F, BHCG2 ####[place] [address] Basophils/100 WBC Auto (Bld) 0.7 % Normal 0.0-2.0 [facility] Comment on above: Performed By: #### A CBC, CHEM7F, BHCG2 ####[place] [address] DTYPE AUTO DIFF Normal [facility] Comment on above: Performed By: #### A CBC, CHEM7F, BHCG2 ####[place] [address] Eosinophils/100 WBC Auto (Bld) 1.4 % Normal 0.0-11.0 [facility] Comment on above: Performed By: #### A CBC, CHEM7F, BHCG2 ####Testing performed at [address] [address] Lymphocytes Auto #/vol (Bld) 1.70 X10 Normal [facility] Comment on above: Performed By: #### A CBC, CHEM7F, BHCG2 ####Testing performed at [place] [phone] Lymphocytes/100 WBC Auto (Bld) 21.8 % Normal 20.0-55.0 [facility] Comment on above: Performed By: #### A CBC, CHEM7F, BHCG2 ####[place] [address] Monocytes Auto #/vol (Bld) 0.4 X10 Normal [facility] Comment on above: Performed By: #### A CBC, CHEM7F, BHCG2 ####[place] [address] Monocytes/100 WBC Auto (Bld) 5.8 % Normal 0.0-10.0 [facility] Comment on above: Performed By: #### A CBC, CHEM7F, BHCG2 ####Testing performed at [place] [phone] Neutrophils/100 WBC Auto (Bld) 70.3 % Normal 37.0-75.0 [facility] Comment on above: Performed By: #### A CBC, CHEM7F, BHCG2 ####Testing performed at [place] [phone] Erythrocyte distribution width Auto Ratio (RBC) 15.6 % High 11.5-14.5 [facility] Comment on above: Performed By: #### A CBC, CHEM7F, BHCG2 ####Testing performed at [place] [phone] Hematocrit Auto Volume Fraction (Bld) 39.8 % Normal 36.0-48.0 [facility] Comment on above: Performed By: #### A CBC, CHEM7F, BHCG2 ####[place] [address] Hemoglobin mass conc (Bld) 13.3 g/dL Normal 12.0-16.0 [facility] Comment on above: Performed By: #### A CBC, CHEM7F, BHCG2 ####[place] [address] MCH Auto Entitic mass (RBC) 25.3 pg Low 26.0-35.0 [facility] Comment on above: Performed By: #### A CBC, CHEM7F, BHCG2 ####[place] [address] MCHC Auto mass conc (RBC) 33.4 g/dL Normal 27.0-37.0 [facility] Comment on above: Performed By: #### A CBC, CHEM7F, BHCG2 ####[place] [address] MCV Auto Entitic volume (RBC) 75.8 fL Low 80.0-100.0 [facility] Comment on above: Performed By: #### A CBC, CHEM7F, BHCG2 ####[place] [address] Platelet mean volume Auto Entitic volume (Bld) 8.2 fL Normal 7.4-11.0 [facility] Comment on above: Result Comment: Test ing performed at [place] [address] Performed By: #### A CBC, CHEM7F, BHCG2 ####[place] [address] Platelets Auto #/vol (Bld) 263 /cmm Normal 130.0-400.0 [facility] Comment on above: Performed By: #### A CBC, CHEM7F, BHCG2 ####[place] [address] RBC Auto #/vol (Bld) 5.25 /cmm Normal 4.0-5.4 [facility] Comment on above: Performed By: #### A CBC, CHEM7F, BHCG2 ####[place] [address] WBC Auto #/vol (Bld) 7.6 /cmm Normal 3.6-11.0 [facility] Comment on above: Performed By: #### A CBC, CHEM7F, BHCG2 ####[place] [address] CHEM 7 FASTINGon 07-31-2018 Chloride molar conc 104 mmol/L Normal 98-107 [facility] Comment on above: Performed By: #### A CBC, CHEM7F, BHCG2 ####[place] [address] CO2 molar conc 23 mmol/L Normal 22-30 [facility] Comment on above: Performed By: #### A CBC, CHEM7F, BHCG2 ####[place] [address] Creatinine mass conc 0.8 mg/dL Normal 0.7-1.2 [facility] Comment on above: Performed By: #### A CBC, CHEM7F, BHCG2 ####[place] [address] EST. GFR, >60 Normal [facility] Comment on above: Performed By: #### A CBC, CHEM7F, BHCG2 ####[place] [address] EST. GFR,Non >60 Normal [facility] Comment on above: Performed By: #### A CBC, CHEM7F, BHCG2 ####[place] [address] GFR/1.73 sq M predicted among non-blacks MDRD vol rate/area (S/P/Bld) Average GFR for 20-29 years old = 116. Normal [facility] Comment on above: Result Comment: Repair Supervisor frantz Kidney disease, GFR = <60.Kidney failure, GFR = <15.The GFR estimate is not adjusted for extreme body surface area or acute process, nor has it been validated for women or ethnic groups other than and .Testing performed at [place] [address] Performed By: #### A CBC, CHEM7F, BHCG2 ####[place] [address] Glucose mass conc 99 mg/dL Normal 70-100 [facility] Comment on above: Result Comment: NORM AL <100 mg/dLPREDIABETES 101-126 mg/dLDIABETES 126 mg/dL or higher Performed By: #### A CBC, CHEM7F, BHCG2 ####[place] [address] Potassium molar conc 4.1 mmol/L Normal 3.5-5.1 [facility] Comment on above: Performed By: #### A CBC, CHEM7F, BHCG2 ####[place] [address] Sodium molar conc 139 mmol/L Normal 137-145 [facility] Comment on above: Performed By: #### A CBC, CHEM7F, BHCG2 ####[place] [address] Urea nitrogen mass conc (Bld) 8 mg/dL Normal 7-20 [facility] Comment on above: Performed By: #### A CBC, CHEM7F, BHCG2 ####[place] [address] CT ABDOMEN/PELVIS WITHOUT CO NTRASTon 07-31-2018 CT [...] seen to account for the symptoms. Normal [facility] ESRon 07-31-2018 ESR Velocity (Bld) 79 mm/h High 0-15 [facility] Comment on above: Result Comment: Test ing performed at [place] [address] Performed By: #### A CBC, CHEM7F, BHCG2 ####[place] [address] LACTIC ACIDon 07-31-2018 Lactate molar conc 1.2 mmol/L Normal 0.7-2.0 [facility] Comment on above: Result Comment: Test ing performed at [place] [address] Performed By: #### A CBC, CHEM7F, BHCG2 ####[place] [address] LIPASE,SERUMon 07-31-2018 LIPASE,SERUM 50 U/L Normal 23-300 [facility] Comment on above: Result Comment: Test ing performed at [place] [address] Performed By: #### A CBC, CHEM7F, BHCG2 ####[place] [address] LIVER PANELon 07-31-2018 Albumin mass conc 4.3 g/dL Normal 2.9-5.3 [facility] Comment on above: Performed By: #### A CBC, CHEM7F, BHCG2 ####[place] [address] ALP enzyme act/vol 98 U/L Normal 38-126 [facility] Comment on above: Performed By: #### A CBC, CHEM7F, BHCG2 ####[place] [address] ALT enzyme act/vol 23 U/L Normal 9-52 [facility] Comment on above: Result Comment: Test ing performed at [place] [address] Performed By: #### A CBC, CHEM7F, BHCG2 ####[place] [address] AST enzyme act/vol 19 U/L Normal 14-36 [facility] Comment on above: Performed By: #### A CBC, CHEM7F, BHCG2 ####[place] [address] Bilirubin mass conc 1.4 mg/dL High 0.2-1.3 [facility] Comment on above: Performed By: #### A CBC, CHEM7F, BHCG2 ####[place] [address] Bilirubin.direct mass conc 0.2 mg/dL Normal 0-0.4 [facility] Comment on above: Performed By: #### A CBC, CHEM7F, BHCG2 ####[place] [address] Protein mass conc 7.5 g/dL Normal 6.3-8.2 [facility] Comment on above: Performed By: #### A CBC, CHEM7F, BHCG2 ####[place] [address] CBCon 07-26-2018 ABSOLUTE BAS 0.1 X10 Normal [facility] Comment on above: Performed By: #### L IPA2, ACBC, CMPF, ESR ####Testing performed at [address] [address] ABSOLUTE EOS 0.10 X10 Normal [facility] Comment on above: Performed By: #### L IPA2, ACBC, CMPF, ESR ####Testing performed at [address] [place] [address] ABSOLUTE NEUTROPHIL COUNT 5.4 x10 Normal 1.0-7.0 [facility] Comment on above: Performed By: #### L IPA2, ACBC, CMPF, ESR ####Testing performed at [address] [place] [address] Basophils/100 WBC Auto (Bld) 0.8 % Normal 0.0-2.0 [facility] Comment on above: Performed By: #### L IPA2, ACBC, CMPF, ESR ####Testing performed at [address] [address] DTYPE AUTO DIFF Normal [facility] Comment on above: Performed By: #### L IPA2, ACBC, CMPF, ESR ####Testing performed at [address] [address] Eosinophils/100 WBC Auto (Bld) 1.6 % Normal 0.0-11.0 [facility] Comment on above: Performed By: #### L IPA2, ACBC, CMPF, ESR ####Testing performed at [address] [address] Lymphocytes Auto #/vol (Bld) 2.10 X10 Normal [facility] Comment on above: Performed By: #### L IPA2, ACBC, CMPF, ESR ####Testing performed at [address] [place] [address] Lymphocytes/100 WBC Auto (Bld) 25.8 % Normal 20.0-55.0 [facility] Comment on above: Performed By: #### L IPA2, ACBC, CMPF, ESR ####Testing performed at [address] [place] [address] Monocytes Auto #/vol (Bld) 0.4 X10 Normal [facility] Comment on above: Performed By: #### L IPA2, ACBC, CMPF, ESR ####Testing performed at [address] [place] [address] Monocytes/100 WBC Auto (Bld) 4.8 % Normal 0.0-10.0 [facility] Comment on above: Performed By: #### L IPA2, ACBC, CMPF, ESR ####[place] [address] Neutrophils/100 WBC Auto (Bld) 67.0 % Normal 37.0-75.0 [facility] Comment on above: Performed By: #### L IPA2, ACBC, CMPF, ESR ####[place] [address] Erythrocyte distribution width Auto Ratio (RBC) 15.6 % High 11.5-14.5 [facility] Comment on above: Performed By: #### L IPA2, ACBC, CMPF, ESR ####[place] [address] Hematocrit Auto Volume Fraction (Bld) 38.8 % Normal 36.0-48.0 [facility] Comment on above: Performed By: #### L IPA2, ACBC, CMPF, ESR ####[place] [address] Hemoglobin mass conc (Bld) 13.0 g/dL Normal 12.0-16.0 [facility] Comment on above: Performed By: #### L IPA2, ACBC, CMPF, ESR ####[place] [address] MCH Auto Entitic mass (RBC) 25.6 pg Low 26.0-35.0 [facility] Comment on above: Performed By: #### L IPA2, ACBC, CMPF, ESR ####[place] [address] MCHC Auto mass conc (RBC) 33.5 g/dL Normal 27.0-37.0 [facility] Comment on above: Performed By: #### L IPA2, ACBC, CMPF, ESR ####[place] [address] MCV Auto Entitic volume (RBC) 76.3 fL Low 80.0-100.0 [facility] Comment on above: Performed By: #### L IPA2, ACBC, CMPF, ESR ####Testing [place] [address] Platelet mean volume Auto Entitic volume (Bld) 8.4 fL Normal 7.4-11.0 [facility] Comment on above: Performed By: #### L IPA2, ACBC, CMPF, ESR ####Testing performed at [place] [id number] Platelets Auto #/vol (Bld) 268 /cmm Normal 130.0-400.0 [facility] Comment on above: Performed By: #### L IPA2, ACBC, CMPF, ESR ####[place] [address] RBC Auto #/vol (Bld) 5.08 /cmm Normal 4.0-5.4 [facility] Comment on above: Performed By: #### L IPA2, ACBC, CMPF, ESR ####[place] [address] WBC Auto #/vol (Bld) 8.1 /cmm Normal 3.6-11.0 [facility] Comment on above: Performed By: #### L IPA2, ACBC, CMPF, ESR ####[place] [address] CMP FASTINGon 07-26-2018 A:G RATIO 1.0 RATIO Low 1.3-2.2 [facility] Comment on above: Performed By: #### L IPA2, ACBC, CMPF, ESR ####[place] [address] Albumin mass conc 4.3 G/dl Normal 3.5-5.0 [facility] Comment on above: Performed By: #### L IPA2, ACBC, CMPF, ESR ####[place] [address] ALP enzyme act/vol 89 U/L Normal 38-126 [facility] Comment on above: Performed By: #### L IPA2, ACBC, CMPF, ESR ####[place] [address] ALT enzyme act/vol 19 U/L Normal 14-54 [facility] Comment on above: Performed By: #### L IPA2, ACBC, CMPF, ESR ####[place] [address] AST enzyme act/vol 23 U/L Normal 15-41 [facility] Comment on above: Performed By: #### L IPA2, ACBC, CMPF, ESR ####[place] [address] Bilirubin mass conc 0.7 mg/dL Normal 0.2-1.2 [facility] Comment on above: Performed By: #### L IPA2, ACBC, CMPF, ESR ####[place] [address] Creatinine mass conc 0.9 mg/dL Normal 0.52-1.04 [facility] Comment on above: Performed By: #### L IPA2, ACBC, CMPF, ESR ####[place] [address] EST. GFR, >60 Normal [facility] Comment on above: Performed By: #### L IPA2, ACBC, CMPF, ESR ####[place] [address] EST. GFR,Non >60 Normal [facility] Comment on above: Performed By: #### L IPA2, ACBC, CMPF, ESR ####[place] [address] GFR/1.73 sq M predicted among non-blacks MDRD vol rate/area (S/P/Bld) Average GFR for 20-29 years old = 116. Normal [facility] Comment on above: Result Comment: Repair Supervisor frantz Kidney disease, GFR = <60.Kidney failure, GFR = <15.The GFR estimate is not adjusted for extreme body surface area or acute process, nor has it been validated for women or ethnic groups other than and . Performed By: #### L IPA2, ACBC, CMPF, ESR ####[place] [address] Protein mass conc 8.4 g/dL High 6.3-8.2 [facility] Comment on above: Performed By: #### L IPA2, ACBC, CMPF, ESR ####Testing performed at [address] [address] Urea nitrogen mass conc (Bld) mg/dL Low 7-20 [facility] Comment on above: Performed By: #### L IPA2, ACBC, CMPF, ESR ####Testing performed at [address] [address] Calcium mass conc 9.4 mg/dL Normal 8.4-10.2 [facility] Comment on above: Performed By: #### L IPA2, ACBC, CMPF, ESR ####Testing performed at [address] [address] Chloride molar conc 103 mmol/L Normal 98-107 [facility] Comment on above: Performed By: #### L IPA2, ACBC, CMPF, ESR ####Testing performed at [address] [address] CO2 molar conc 25 mmol/L Normal 22-30 [facility] Comment on above: Performed By: #### L IPA2, ACBC, CMPF, ESR ####Testing performed at [address] [address] Glucose mass conc 124 mg/dL High 70-100 [facility] Comment on above: Result Comment: NORM AL <100 mg/dLPREDIABETES 101-126 mg/dLDIABETES 126 mg/dL or higher Performed By: #### L IPA2, ACBC, CMPF, ESR ####Testing performed at [address] [address] Potassium molar conc 3.1 mmol/L Low 3.5-5.1 [facility] Comment on above: Performed By: #### L IPA2, ACBC, CMPF, ESR ####Testing performed at [address] [address] Sodium molar conc 138 mmol/L Normal 136-145 [facility] Comment on above: Performed By: #### L IPA2, ACBC, CMPF, ESR ####Testing performed at [address] [address] ED NOTEon 07-26-2018 [facility] NOTES Normal [facility] ED PROVIDERon 07-26-2018 [facility] NOTES Normal [facility] ESRon 07-26-2018 ESR Velocity (Bld) 46 mm/h High 0-15 [facility] Comment on above: Performed By: #### L IPA2, ACBC, CMPF, ESR ####[place] [address] LACTIC ACIDon 07-26-2018 Lactate molar conc 2.1 mmol/L Critically high 0.5-2.0 [facility] Comment on above: Result Comment: PLEA REPEAT INITIAL CRITICAL IN 3 HOURS IF ED OR INPATIENT SEPSIS PATIENTResult called to read back by: SHY DAMIAN 07/26/2018 @ 14:54 by KASSIDY Performed By: #### L ACT ####[place] [address] LIPASE,SERUMon 07-26-2018 LIPASE,SERUM 22 U/L Low 23-300 [facility] Comment on above: Performed By: #### L IPA2, ACBC, CMPF, ESR ####[place] [address] RAPID TOX SCREEN,URINEon AMPHETAMINE Negative Normal NEGATIVE [facility] Comment on above: Result Comment: <500 ng/ml CUTOFF Performed By: #### R TOX, UHCGT ####[place] [address] BARBITURATES Negative Normal NEGATIVE [facility] Comment on above: Result Comment: <200 ng/ml CUTOFF Performed By: #### R TOX, UHCGT ####[place] [address] BENZODIAZEPINES Negative Normal NEGATIVE [facility] Comment on above: Result Comment: <150 ng/ml CUTOFF Performed By: #### R TOX, UHCGT ####[place] [address] BUPRENORPHINE Negative Normal NEGATIVE [facility] Comment on above: Result Comment: <10 ng/ml CUTOFF Performed By: #### R TOX, UHCGT ####Testing performed at [address] [place] [address] CANNABINOIDS Positive Abnormal NEGATIVE [facility] Comment on above: Result Comment: <50 ng/ml CUTOFF*Unconfirmed Screening Result* Unconfirmed screening results are to be used only for medical treatment purposes. Performed By: #### R TOX, UHCGT ####Testing performed at [address] [place] [address] COCAINE Negative Normal NEGATIVE [facility] Comment on above: Result Comment: <150 ng/ml CUTOFF Performed By: #### R TOX, UHCGT ####Testing performed at [address] [place] [address] METHADONE Negative Normal NEGATIVE [facility] Comment on above: Result Comment: <200 ng/ml CUTOFF Performed By: #### R TOX, UHCGT ####Testing performed at [address] [place] [address] METHAMPHETAMINE Negative Normal NEGATIVE [facility] Comment on above: Result Comment: <500 ng/ml CUTOFF Performed By: #### R TOX, UHCGT ####Testing performed at [address] [place] [address] OPIATES Negative Normal NEGATIVE [facility] Comment on above: Result Comment: <100 ng/ml CUTOFF Performed By: #### R TOX, UHCGT ####Testing performed at [address] [place] [address] OXYCODONE Negative Normal NEGATIVE [facility] Comment on above: Result Comment: <100 ng/ml CUTOFF Performed By: #### R TOX, UHCGT ####Testing performed at [address] [place] [address] PHENCYCLIDINE Negative Normal NEGATIVE [facility] Comment on above: Result Comment: <25 ng/ml CUTOFF Performed By: #### R TOX, UHCGT ####Testing performed at [address] [place] [address] Protein mass conc Negative Normal NEGATIVE [facility] Comment on above: Result Comment: <300 ng/ml CUTOFF Performed By: #### R TOX, UHCGT ####Testing performed at [address] [address] TRICYCLIC ANTIDEPRESSANTS Negative Normal NEGATIVE [facility] Comment on above: Result Comment: <300 ng/ml CUTOFF Performed By: #### R TOX CGT ####Testing performed at [address] [address] URINE HCG QUALon 07-26-2018 HCG.beta subunit ( test) Ql (U) Negative Normal NEGATIVE [facility] Comment on above: Performed By: #### R TOX CGT ####Testing performed at [address] [address] ACETAMINOPHENon 07-12-2018 Acetaminophen mass conc <10.0 Low 10-30 [facility] ALCOHOLon 07-12-2018 Ethanol mass conc mg/dL Normal 0-10 [facility] Comment on above: Result Comment: INTOXICATION >80 MG/DL FATAL >400 MG/DL Performed By: #### A CBC ####Testing performed at [address] [address] CBCon 07-12-2018 ABSOLUTE BAS 0.1 X10 Normal [facility] Comment on above: Performed By: #### A CBC ####Testing performed at [address] [address] ABSOLUTE EOS 0.20 X10 Normal [facility] Comment on above: Performed By: #### A CBC ####Testing performed at [address] [address] ABSOLUTE NEUTROPHIL COUNT 7.0 x10 Normal 1.0-7.0 [facility] Comment on above: Performed By: #### A CBC ####Testing performed at [address] [address] Basophils/100 WBC (Bld) 0.7 % Normal 0.0-2.0 [facility] Comment on above: Performed By: #### A CBC ####Testing performed at [address] [address] DTYPE AUTO DIFF Normal [facility] Comment on above: Performed By: #### A CBC ####Testing performed at [address] [address] Eosinophils/100 WBC (Bld) 1.5 % Normal 0.0-11.0 [facility] Comment on above: Performed By: #### A CBC ####Testing performed at [address] [address] Lymphocytes #/vol (Bld) 1.90 X10 Normal [facility] Comment on above: Performed By: #### A CBC ####Testing performed at [address] [address] Lymphocytes/100 WBC (Bld) 19.8 % Low 20.0-55.0 [facility] Comment on above: Performed By: #### A CBC ####Testing performed at [address] [address] Monocytes #/vol (Bld) 0.6 X10 Normal [facility] Comment on above: Performed By: #### A CBC ####Testing performed at [address] [address] Monocytes/100 WBC (Bld) 6.2 % Normal 0.0-10.0 [facility] Comment on above: Performed By: #### A CBC ####Testing performed at [address] [address] Neutrophils/100 WBC (Bld) 71.8 % Normal 37.0-75.0 [facility] Comment on above: Performed By: #### A CBC ####Testing performed at [address] [address] Erythrocyte distribution width Ratio (RBC) 15.3 % High 11.5-14.5 [facility] Comment on above: Performed By: #### A CBC ####Testing performed at [address] [address] Hematocrit Volume Fraction (Bld) 40.7 % Normal 36.0-48.0 [facility] Comment on above: Performed By: #### A CBC ####Testing performed at [address] [address] Hemoglobin mass conc (Bld) 13.3 g/dL Normal 12.0-16.0 [facility] Comment on above: Performed By: #### A CBC ####Testing performed at [address] [address] MCH Entitic mass (RBC) 24.8 pg Low 26.0-35.0 [facility] Comment on above: Performed By: #### A CBC ####Testing performed at [address] [address] MCHC mass conc (RBC) 32.7 g/dL Normal 27.0-37.0 [facility] Comment on above: Performed By: #### A CBC ####Testing performed at [address] [address] MCV Entitic volume (RBC) 75.7 fL Low 80.0-100.0 [facility] Comment on above: Performed By: #### A CBC ####Testing performed at [address] [address] Platelet mean volume Entitic volume (Bld) 8.3 fL Normal 7.4-11.0 [facility] Comment on above: Performed By: #### A CBC ####Testing performed at [address] [address] Platelets #/vol (Bld) 312 /cmm Normal 130.0-400.0 [facility] Comment on above: Performed By: #### A CBC ####Testing performed at [address] [address] RBC #/vol (Bld) 5.37 /cmm Normal 4.0-5.4 [facility] Comment on above: Performed By: #### A CBC ####Testing performed at [place] [id number] WBC #/vol (Bld) 9.8 /cmm Normal 3.6-11.0 [facility] Comment on above: Performed By: #### A CBC ####[place] [address] CHEM 7 FASTINGon 07-12-2018 Chloride molar conc 104 mmol/L Normal 98-107 [facility] Comment on above: Performed By: #### A CBC ####[place] [address] CO2 molar conc 22 mmol/L Normal 22-30 [facility] Comment on above: Performed By: #### A CBC ####[place] [address] Creatinine mass conc 0.9 mg/dL Normal 0.7-1.2 [facility] Comment on above: Performed By: #### A CBC ####Testing performed at [place] [id number] EST. GFR, >60 Normal [facility] Comment on above: Performed By: #### A CBC ####Testing performed at [place] [id number] EST. GFR,Non >60 Normal [facility] Comment on above: Performed By: #### A CBC ####Testing performed at [address] [address] GFR/1.73 sq M predicted among non-blacks MDRD vol rate/area (S/P/Bld) Average GFR for 20-29 years old = 116. Normal [facility] Comment on above: Result Comment: Repair Supervisor frantz Kidney disease, GFR = <60. Kidney failure, GFR = <15. The GFR estimate is not adjusted for extreme body surface area or acute process, nor has it been validated for women or ethnic groups other than and . Performed By: #### A CBC ####Testing performed at [address] [address] Glucose mass conc 170 mg/dL High 70-100 [facility] Comment on above: Result Comment: NORMAL <100 mg/dL PREDIABETES 101-126 mg/dL DIABETES 126 mg/dL or higher Performed By: #### A CBC ####Testing performed at [address] [address] Potassium molar conc 3.4 mmol/L Low 3.5-5.1 [facility] Comment on above: Performed By: #### A CBC ####Testing performed at [address] [address] Sodium molar conc 141 mmol/L Normal 137-145 [facility] Comment on above: Performed By: #### A CBC ####Testing performed at [address] [address] Urea nitrogen mass conc 9 mg/dL Normal 7-20 [facility] Comment on above: Performed By: #### A CBC ####Testing performed at [address] [address] LIVER PANELon 07-12-2018 Albumin mass conc 4.7 g/dL Normal 2.9-5.3 [facility] Comment on above: Performed By: #### A CBC ####Testing performed at [address] [address] ALP enzyme act/vol 100 U/L Normal 38-126 [facility] Comment on above: Performed By: #### A CBC ####Testing performed at [address] [address] ALT enzyme act/vol 32 U/L Normal 9-52 [facility] Comment on above: Performed By: #### A CBC ####Testing performed at [address] [place] [address] AST enzyme act/vol 25 U/L Normal 14-36 [facility] Comment on above: Performed By: #### A CBC ####Testing performed at [address] [address] Bilirubin mass conc 1.5 mg/dL High 0.2-1.3 [facility] Comment on above: Performed By: #### A CBC ####Testing performed at [place] [id number] Bilirubin.direct mass conc 0.3 mg/dL Normal 0-0.4 [facility] Comment on above: Performed By: #### A CBC ####[place] [address] Protein mass conc 8.4 g/dL High 6.3-8.2 [facility] Comment on above: Performed By: #### A CBC ####Testing performed at [address] [address] PROTIMEon 07-12-2018 INR Coag RelTime (PPP) 1.06 {INR} Normal 0.87-1.13 [facility] Comment on above: Result Comment: 2.0- 3.0 THERAPEUTIC RANGE 2.5-3.5 PROSTHETIC VALVE RANGE Performed By: #### A CBC ####Testing performed at [place] [id number] Prothrombin time (PT) Coag time (PPP) 11.0 s Normal 10.0-13.0 [facility] Comment on above: Performed By: #### A CBC ####Testing performed at [address] [address] RAPID TOX SCREEN,URINEon AMPHETAMINE Negative Normal NEGATIVE [facility] Comment on above: Result Comment: <500 ng/ml CUTOFF Performed By: #### U HCGT ####Testing performed at [place] [id number] BARBITURATES Negative Normal NEGATIVE [facility] Comment on above: Result Comment: <200 ng/ml CUTOFF Performed By: #### U HCGT ####Testing performed at [address] [address] Benzodiazepines Ql (U) Negative Normal NEGATIVE [facility] Comment on above: Result Comment: <150 ng/ml CUTOFF Performed By: #### U HCGT ####Testing performed at [address] [address] BUPRENORPHINE Negative Normal NEGATIVE [facility] Comment on above: Result Comment: <10 ng/ml CUTOFF Performed By: #### U HCGT ####Testing performed at [address] [address] Cannabinoids Screen Ql (U) Positive Abnormal NEGATIVE [facility] Comment on above: Result Comment: <50 ng/ml CUTOFF *Unconfirmed Screening Result* Unconfirmed screening results are to be used only for medical treatment purposes. Performed By: #### U HCGT ####Testing performed at [address] [address] Cocaine Ql (U) Negative Normal NEGATIVE [facility] Comment on above: Result Comment: <150 ng/ml CUTOFF Performed By: #### U HCGT ####Testing performed at [address] [address] Methadone Ql (U) Negative Normal NEGATIVE [facility] Comment on above: Result Comment: <200 ng/ml CUTOFF Performed By: #### U HCGT ####Testing performed at [address] [address] METHAMPHETAMINE Negative Normal NEGATIVE [facility] Comment on above: Result Comment: <500 ng/ml CUTOFF Performed By: #### U HCGT ####Testing performed at [address] [address] Opiates Ql (U) Negative Normal NEGATIVE [facility] Comment on above: Result Comment: <100 ng/ml CUTOFF Performed By: #### U HCGT ####Testing performed at [address] [address] OXYCODONE Negative Normal NEGATIVE [facility] Comment on above: Result Comment: <100 ng/ml CUTOFF Performed By: #### U HCGT ####Testing performed at [address] [address] Phencyclidine Ql (U) Negative Normal NEGATIVE [facility] Comment on above: Result Comment: <25 ng/ml CUTOFF Performed By: #### U HCGT ####Testing performed at [address] [address] Protein mass conc (U) Negative Normal NEGATIVE [facility] Comment on above: Result Comment: <300 ng/ml CUTOFF Performed By: #### U HCGT ####Testing performed at [address] [address] Tricyclic antidepressants Screen Ql (U) Negative Normal NEGATIVE [facility] Comment on above: Result Comment: <300 ng/ml CUTOFF Performed By: #### U HCGT ####Testing performed at [address] [address] SALICYLATESon 07-12-2018 SALICYLATES <1.0 Normal 0-20 [facility] TSHon 07-12-2018 Thyrotropin Qn 1.140 uIU/ML Normal 0.46-4.68 [facility] Comment on above: Performed By: #### A CBC ####Testing performed at [address] [address] URINE HCG QUALon 07-12-2018 HCG.beta subunit ( test) Ql (U) Negative Normal [facility] Comment on above: Performed By: #### U HCGT ####Testing performed at [address] [address] CBCon 07-09-2018 ABSOLUTE BAS 0.1 X10 Normal [facility] Comment on above: Result Comment: Test ing performed at [place] [address] Performed By: #### A CBC, CHEM7F, BHCG2 ####[place] [address] ABSOLUTE EOS 0.20 X10 Normal [facility] Comment on above: Performed By: #### A CBC, CHEM7F, BHCG2 ####[place] [address] ABSOLUTE NEUTROPHIL COUNT 5.8 x10 Normal 1.0-7.0 [facility] Comment on above: Performed By: #### A CBC, CHEM7F, BHCG2 ####[place] [address] Basophils/100 WBC Auto (Bld) 0.8 % Normal 0.0-2.0 [facility] Comment on above: Performed By: #### A CBC, CHEM7F, BHCG2 ####[place] [address] DTYPE AUTO DIFF Normal [facility] Comment on above: Performed By: #### A CBC, CHEM7F, BHCG2 ####[place] [address] Eosinophils/100 WBC Auto (Bld) 2.8 % Normal 0.0-11.0 [facility] Comment on above: Performed By: #### A CBC, CHEM7F, BHCG2 ####[place] [address] Lymphocytes Auto #/vol (Bld) 1.50 X10 Normal [facility] Comment on above: Performed By: #### A CBC, CHEM7F, BHCG2 ####[place] [address] Lymphocytes/100 WBC Auto (Bld) 18.7 % Low 20.0-55.0 [facility] Comment on above: Performed By: #### A CBC, CHEM7F, BHCG2 ####[place] [address] Monocytes Auto #/vol (Bld) 0.3 X10 Normal [facility] Comment on above: Performed By: #### A CBC, CHEM7F, BHCG2 ####[place] [address] Monocytes/100 WBC Auto (Bld) 4.1 % Normal 0.0-10.0 [facility] Comment on above: Performed By: #### A CBC, CHEM7F, BHCG2 ####[place] [address] Neutrophils/100 WBC Auto (Bld) 73.6 % Normal 37.0-75.0 [facility] Comment on above: Performed By: #### A CBC, CHEM7F, BHCG2 ####[place] [address] Erythrocyte distribution width Auto Ratio (RBC) 15.0 % High 11.5-14.5 [facility] Comment on above: Performed By: #### A CBC, CHEM7F, BHCG2 ####[place] [address] Hematocrit Auto Volume Fraction (Bld) 37.5 % Normal 36.0-48.0 [facility] Comment on above: Performed By: #### A CBC, CHEM7F, BHCG2 ####[place] [address] Hemoglobin mass conc (Bld) 12.3 g/dL Normal 12.0-16.0 [facility] Comment on above: Performed By: #### A CBC, CHEM7F, BHCG2 ####[place] [address] MCH Auto Entitic mass (RBC) 24.9 pg Low 26.0-35.0 [facility] Comment on above: Performed By: #### A CBC, CHEM7F, BHCG2 ####[place] [address] MCHC Auto mass conc (RBC) 32.7 g/dL Normal 27.0-37.0 [facility] Comment on above: Performed By: #### A CBC, CHEM7F, BHCG2 ####[place] [address] MCV Auto Entitic volume (RBC) 76.1 fL Low 80.0-100.0 [facility] Comment on above: Performed By: #### A CBC, CHEM7F, BHCG2 ####[place] [address] Platelet mean volume Auto Entitic volume (Bld) 8.3 fL Normal 7.4-11.0 [facility] Comment on above: Performed By: #### A CBC, CHEM7F, BHCG2 ####[place] [address] Platelets Auto #/vol (Bld) 262 /cmm Normal 130.0-400.0 [facility] Comment on above: Performed By: #### A CBC, CHEM7F, BHCG2 ####[place] [address] RBC Auto #/vol (Bld) 4.93 /cmm Normal 4.0-5.4 [facility] Comment on above: Performed By: #### A CBC, CHEM7F, BHCG2 ####[place] [address] WBC Auto #/vol (Bld) 7.9 /cmm Normal 3.6-11.0 [facility] Comment on above: Performed By: #### A CBC, CHEM7F, BHCG2 ####[place] [address] CHEM 7 FASTINGon 07-09-2018 Chloride molar conc 105 mmol/L Normal 98-107 [facility] Comment on above: Performed By: #### A CBC, CHEM7F, BHCG2 ####Testing performed at [place] [id number] CO2 molar conc 25 mmol/L Normal 22-30 [facility] Comment on above: Performed By: #### A CBC, CHEM7F, BHCG2 ####[place] [address] Creatinine mass conc 0.8 mg/dL Normal 0.7-1.2 [facility] Comment on above: Performed By: #### A CBC, CHEM7F, BHCG2 ####[place] [address] EST. GFR, >60 Normal [facility] Comment on above: Performed By: #### A CBC, CHEM7F, BHCG2 ####[place] [address] EST. GFR,Non >60 Normal [facility] Comment on above: Performed By: #### A CBC, CHEM7F, BHCG2 ####[place] [address] GFR/1.73 sq M predicted among non-blacks MDRD vol rate/area (S/P/Bld) Average GFR for 20-29 years old = 116. Normal [facility] Comment on above: Result Comment: Repair Supervisor frantz Kidney disease, GFR = <60.Kidney failure, GFR = <15.The GFR estimate is not adjusted for extreme body surface area or acute process, nor has it been validated for women or ethnic groups other than and .Testing performed at [place] [address] Performed By: #### A CBC, CHEM7F, BHCG2 ####[place] [address] Glucose mass conc 101 mg/dL High 70-100 [facility] Comment on above: Result Comment: NORM AL <100 mg/dLPREDIABETES 101-126 mg/dLDIABETES 126 mg/dL or higher Performed By: #### A CBC, CHEM7F, BHCG2 ####[place] [address] Potassium molar conc 4.1 mmol/L Normal 3.5-5.1 [facility] Comment on above: Performed By: #### A CBC, CHEM7F, BHCG2 ####[place] [address] Sodium molar conc 140 mmol/L Normal 137-145 [facility] Comment on above: Performed By: #### A CBC, CHEM7F, BHCG2 ####[place] [address] Urea nitrogen mass conc (Bld) 8 mg/dL Normal 7-20 [facility] Comment on above: Performed By: #### A CBC, CHEM7F, BHCG2 ####[place] [address] ESRon 07-09-2018 ESR Velocity (Bld) 55 mm/h High 0-15 [facility] Comment on above: Result Comment: Test ing performed at [place] [address] Performed By: #### A CBC, CHEM7F, BHCG2 ####[place] [address] URINE HCG QUALon 07-09-2018 HCG.beta subunit ( test) Ql (U) Negative Normal [facility] Comment on above: Result Comment: Test ing performed at [place] [address] Performed By: #### A CBC, CHEM7F, BHCG2 ####[place] [address] URINE MACROSCOPICon 07-09-20 18 Bilirubin Ql (U) Negative Normal NEGATIVE [facility] Comment on above: Performed By: #### A CBC, CHEM7F, BHCG2 ####[place] [address] Clarity Nom (U) CLEAR Abnormal CLEAR [facility] Comment on above: Performed By: #### A CBC, CHEM7F, BHCG2 ####[place] [address] Color Nom (U) YELLOW Normal YELLOW [facility] Comment on above: Performed By: #### A CBC, CHEM7F, BHCG2 ####[place] [address] Glucose Ql (U) Negative Normal NEGATIVE [facility] Comment on above: Performed By: #### A CBC, CHEM7F, BHCG2 ####[place] [address] pH Test strip (U) 6.0 [pH] Normal 5.0-7.0 [facility] Comment on above: Performed By: #### A CBC, CHEM7F, BHCG2 ####[place] [address] URINE HEMOGLOBIN MODERATE Abnormal NEGATIVE [facility] Comment on above: Performed By: #### A CBC, CHEM7F, BHCG2 ####[place] [address] URINE KETONE Negative Normal NEGATIVE [facility] Comment on above: Performed By: #### A CBC, CHEM7F, BHCG2 ####[place] [address] URINE LEUKOTEST TRACE Abnormal NEGATIVE [facility] Comment on above: Result Comment: Test ing performed at [place] [address] Performed By: #### A CBC, CHEM7F, BHCG2 ####[place] [address] URINE NITRATES Negative Normal NEGATIVE [facility] Comment on above: Performed By: #### A CBC, CHEM7F, BHCG2 ####[place] [address] URINE SPEC GRAVITY 1.025 Normal 1.010-1.025 [facility] Comment on above: Performed By: #### A CBC, CHEM7F, BHCG2 ####[place] [address] URINE TOTAL PROTEIN Negative Normal NEGATIVE [facility] Comment on above: Performed By: #### A CBC, CHEM7F, BHCG2 ####[place] [address] Urobilinogen Test strip Qn (U) 0.2 mg/dl Normal 0.2-1.0 [facility] Comment on above: Performed By: #### A CBC, CHEM7F, BHCG2 ####[place] [address] URINE MICROSCOPICon 07-09-20 18 BACTERIA Negative Normal NEGATIVE [facility] Comment on above: Performed By: #### A CBC, CHEM7F, BHCG2 ####[place] [address] CASTS NONE Normal NONE [facility] Comment on above: Performed By: #### A CBC, CHEM7F, BHCG2 ####[place] [address] CRYSTAL NONE [facility] Comment on above: Performed By: #### A CBC, CHEM7F, BHCG2 ####[place] [address] EPITHELIAL CELLS TOO NUMEROUS TO COUNT Normal [facility] Comment on above: Performed By: #### A CBC, CHEM7F, BHCG2 ####[place] [address] MUCUS Negative Normal NEGATIVE [facility] Comment on above: Performed By: #### A CBC, CHEM7F, BHCG2 ####[place] [address] RBC Test strip #/vol (U) Negative Normal NEGATIVE [facility] Comment on above: Performed By: #### A CBC, CHEM7F, BHCG2 ####[place] [address] URINE COMMENT POSSIBLY CONTAMINATE D SPECIMEN, CULTURE MUST BE ORDERED SEPARATELY IF DEEMED NECESSARY. Normal [facility] Comment on above: Result Comment: Test ing performed at [place] [address] Performed By: #### A CBC, CHEM7F BHCG2 ####Testing performed at [address] [address] URINE WBC'S 1 TO 5 Normal NEGATIVE [facility] Comment on above: Performed By: #### A CBC, CHEM7F, BHCG2 ####Testing performed at [place] [id number] CBCon 05-19-2018 ABSOLUTE BAS 0.1 X10 Normal [facility] Comment on above: Performed By: #### A CBC ####Testing performed at [address] [address] ABSOLUTE EOS 0.10 X10 Normal [facility] Comment on above: Performed By: #### A CBC ####Testing performed at [address] [address] ABSOLUTE NEUTROPHIL COUNT 8.8 x10 High 1.0-7.0 [facility] Comment on above: Performed By: #### A CBC ####Testing performed at [address] [address] Basophils/100 WBC (Bld) 0.6 % Normal 0.0-2.0 [facility] Comment on above: Performed By: #### A CBC ####Testing performed at [address] [address] DTYPE AUTO DIFF Normal [facility] Comment on above: Performed By: #### A CBC ####Testing performed at [address] [address] Eosinophils/100 WBC (Bld) 0.9 % Normal 0.0-11.0 [facility] Comment on above: Performed By: #### A CBC ####Testing performed at [address] [address] Lymphocytes #/vol (Bld) 2.50 X10 Normal [facility] Comment on above: Performed By: #### A CBC ####Testing performed at [address] [address] Lymphocytes/100 WBC (Bld) 20.2 % Normal 20.0-55.0 [facility] Comment on above: Performed By: #### A CBC ####Testing performed at [address] [address] Monocytes #/vol (Bld) 0.8 X10 Normal [facility] Comment on above: Performed By: #### A CBC ####Testing performed at [address] [address] Monocytes/100 WBC (Bld) 6.8 % Normal 0.0-10.0 [facility] Comment on above: Performed By: #### A CBC ####Testing performed at [address] [address] Neutrophils/100 WBC (Bld) 71.5 % Normal 37.0-75.0 [facility] Comment on above: Performed By: #### A CBC ####Testing performed at [address] [address] Erythrocyte distribution width Ratio (RBC) 16.5 % High 11.5-14.5 [facility] Comment on above: Performed By: #### A CBC ####Testing performed at [address] [address] Hematocrit Volume Fraction (Bld) 35.0 % Low 36.0-48.0 [facility] Comment on above: Performed By: #### A CBC ####Testing performed at [address] [address] Hemoglobin mass conc (Bld) 11.5 g/dL Low 12.0-16.0 [facility] Comment on above: Performed By: #### A CBC ####Testing performed at [address] [place] [address] MCH Entitic mass (RBC) 25.4 pg Low 26.0-35.0 [facility] Comment on above: Performed By: #### A CBC ####Testing performed at [address] [address] MCHC mass conc (RBC) 32.7 g/dL Normal 27.0-37.0 [facility] Comment on above: Performed By: #### A CBC ####[place] [address] MCV Entitic volume (RBC) 77.6 fL Low 80.0-100.0 [facility] Comment on above: Performed By: #### A CBC ####[place] [address] Platelet mean volume Entitic volume (Bld) 7.9 fL Normal 7.4-11.0 [facility] Comment on above: Performed By: #### A CBC ####[place] [address] Platelets #/vol (Bld) 368 /cmm Normal 130.0-400.0 [facility] Comment on above: Performed By: #### A CBC ####[place] [address] RBC #/vol (Bld) 4.51 /cmm Normal 4.0-5.4 [facility] Comment on above: Performed By: #### A CBC ####[place] [address] WBC #/vol (Bld) 12.3 /cmm High 3.6-11.0 [facility] Comment on above: Performed By: #### A CBC ####[place] [address] CMP FASTINGon 05-19-2018 A:G RATIO 1.2 RATIO Low 1.3-2.2 [facility] Albumin mass conc 4.1 G/dl Normal 3.5-5.0 [facility] ALP enzyme act/vol 124 U/L Normal 38-126 [facility] ALT enzyme act/vol 62 U/L High 9-52 [facility] AST enzyme act/vol 35 U/L Normal 14-36 [facility] Bilirubin mass conc 0.5 mg/dL Normal 0.2-1.3 [facility] Calcium mass conc 9.5 mg/dL Normal 8.4-10.2 [facility] Chloride molar conc 106 mmol/L Normal 98-107 [facility] CO2 molar conc 25 mmol/L Normal 22-30 [facility] Creatinine mass conc 0.9 mg/dL Normal 0.7-1.2 [facility] EST. GFR, >60 Normal [facility] EST. GFR,Non >60 Normal [facility] GFR/1.73 sq M predicted among non-blacks MDRD vol rate/area (S/P/Bld) Average GFR for 20-29 years old = 116. Normal [facility] Comment on above: Result Comment: Repair Supervisor frantz Kidney disease, GFR = <60. Kidney failure, GFR = <15. The GFR estimate is not adjusted for extreme body surface area or acute process, nor has it been validated for women or ethnic groups other than and . Glucose mass conc 108 mg/dL High 70-100 [facility] Comment on above: Result Comment: NORMAL <100 mg/dL PREDIABETES 101-126 mg/dL DIABETES 126 mg/dL or higher Potassium molar conc 3.5 mmol/L Normal 3.5-5.1 [facility] Protein mass conc 7.5 g/dL Normal 6.3-8.2 [facility] Sodium molar conc 143 mmol/L Normal 137-145 [facility] Urea nitrogen mass conc 9 mg/dL Normal 7-20 [facility] LIPASE,SERUMon 05-19-2018 LIPASE,SERUM 51 U/L Normal 23-300 [facility] URINE HCG QUALon 05-19-2018 HCG.beta subunit ( test) Ql (U) Negative Normal [facility] URINE MACROSCOPICon 05-19-20 18 Bilirubin Ql (U) Negative Normal NEGATIVE [facility] Clarity Nom (U) CLEAR Normal CLEAR [facility] Color Nom (U) YELLOW Normal YELLOW [facility] Glucose Ql (U) Negative Normal NEGATIVE [facility] pH (U) 6.0 [pH] Normal 5.0-7.0 [facility] Protein mass conc (U) TRACE Abnormal NEGATIVE [facility] URINE HEMOGLOBIN Negative Normal NEGATIVE [facility] URINE KETONE Negative Normal NEGATIVE [facility] URINE LEUKOTEST Negative Normal NEGATIVE [facility] URINE NITRATES Negative Normal NEGATIVE [facility] URINE SPEC GRAVITY >1.030 High 1.010-1.025 [facility] Urobilinogen Qn (U) 0.2 mg/dl Normal 0.2-1.0 [facility] URINE MICROSCOPICon 05-19-20 18 Bacteria LM.HPF #/area (Urine sed) TRACE Abnormal NEGATIVE [facility] Casts LM.LPF #/area (Urine sed) NONE Normal NONE [facility] CRYSTAL OCCASIONAL Abnormal NONE [facility] Comment on above: Result Comment: CA O XALATE CRYSTALS Epithelial cells LM.HPF #/area (Urine sed) 20 TO 30 Normal [facility] Mucus Ql (Urine sed) Negative Normal NEGATIVE [facility] RBC #/vol (U) Negative Normal NEGATIVE [facility] URINE COMMENT CULTURE CRITERIA NOT MET, NO CULTURE PERFORMED. Normal [facility] WBC #/vol (U) Negative Normal NEGATIVE [facility] XR ABDOMEN 1 VIEWon 05-19-20 18 XR ABDOMEN 1 VIEW XR ABDOMEN 1 VIEW HISTORY: Abdominal pain. COMPARISON: CT abdomen/pelvis from October 26, 2017. FINDINGS: Nonobstructive bowel gas pattern. No gross pneumoperitoneum. Osseous structures are intact. Intrauterine device is noted. IMPRESSION: Nonobstructive bowel gas pattern. Normal [facility] ACETAMINOPHENon 04-25-2018 Acetaminophen mass conc <10.0 Low 10-30 [facility] ALCOHOLon 04-25-2018 Ethanol mass conc mg/dL Normal 0-10 [facility] Comment on above: Result Comment: INTOXICATION >80 MG/DL FATAL >400 MG/DL CBCon 04-25-2018 ABSOLUTE BAS 0.1 X10 Normal [facility] ABSOLUTE EOS 0.10 X10 Normal [facility] ABSOLUTE NEUTROPHIL COUNT 6.5 x10 Normal 1.0-7.0 [facility] Basophils/100 WBC (Bld) 0.6 % Normal 0.0-2.0 [facility] DTYPE AUTO DIFF Normal [facility] Eosinophils/100 WBC (Bld) 1.1 % Normal 0.0-11.0 [facility] Lymphocytes #/vol (Bld) 2.00 X10 Normal [facility] Lymphocytes/100 WBC (Bld) 22.0 % Normal 20.0-55.0 [facility] Monocytes #/vol (Bld) 0.4 X10 Normal [facility] Monocytes/100 WBC (Bld) 4.5 % Normal 0.0-10.0 [facility] Neutrophils/100 WBC (Bld) 71.8 % Normal 37.0-75.0 [facility] Erythrocyte distribution width Ratio (RBC) 15.6 % High 11.5-14.5 [facility] Hematocrit Volume Fraction (Bld) 37.2 % Normal 36.0-48.0 [facility] Hemoglobin mass conc (Bld) 12.0 g/dL Normal 12.0-16.0 [facility] MCH Entitic mass (RBC) 25.3 pg Low 26.0-35.0 [facility] MCHC mass conc (RBC) 32.3 g/dL Normal 27.0-37.0 [facility] MCV Entitic volume (RBC) 78.2 fL Low 80.0-100.0 [facility] Platelet mean volume Entitic volume (Bld) 7.8 fL Normal 7.4-11.0 [facility] Platelets #/vol (Bld) 344 /cmm Normal 130.0-400.0 [facility] RBC #/vol (Bld) 4.76 /cmm Normal 4.0-5.4 [facility] WBC #/vol (Bld) 9.1 /cmm Normal 3.6-11.0 [facility] CHEM 7 FASTINGon 04-25-2018 Chloride molar conc 108 mmol/L High 98-107 [facility] CO2 molar conc 21 mmol/L Low 22-30 [facility] Creatinine mass conc 0.8 mg/dL Normal 0.7-1.2 [facility] EST. GFR, >60 Normal [facility] EST. GFR,Non >60 Normal [facility] GFR/1.73 sq M predicted among non-blacks MDRD vol rate/area (S/P/Bld) Average GFR for 20-29 years old = 116. Normal [facility] Comment on above: Result Comment: Repair Supervisor frantz Kidney disease, GFR = <60. Kidney failure, GFR = <15. The GFR estimate is not adjusted for extreme body surface area or acute process, nor has it been validated for women or ethnic groups other than and . Glucose mass conc 98 mg/dL Normal 70-100 [facility] Comment on above: Result Comment: NORMAL <100 mg/dL PREDIABETES 101-126 mg/dL DIABETES 126 mg/dL or higher Potassium molar conc 3.8 mmol/L Normal 3.5-5.1 [facility] Sodium molar conc 140 mmol/L Normal 137-145 [facility] Urea nitrogen mass conc 7 mg/dL Normal 7-20 [facility] LIVER PANELon 04-25-2018 Albumin mass conc 4.4 g/dL Normal 2.9-5.3 [facility] ALP enzyme act/vol 116 U/L Normal 38-126 [facility] ALT enzyme act/vol 30 U/L Normal 9-52 [facility] [facility] act/vol 37 U/L High 14-36 [facility] Bilirubin mass conc 1.0 mg/dL Normal 0.2-1.3 [facility] Bilirubin.direct mass conc 0.3 mg/dL Normal 0-0.4 [facility] Protein mass conc 7.8 g/dL Normal 6.3-8.2 [facility] RAPID TOX SCREEN,URINEon AMPHETAMINE Negative Normal NEGATIVE [facility] Comment on above: Result Comment: <500 ng/ml CUTOFF BARBITURATES Negative Normal NEGATIVE [facility] Comment on above: Result Comment: <200 ng/ml CUTOFF Benzodiazepines Ql (U) Negative Normal NEGATIVE [facility] Comment on above: Result Comment: <150 ng/ml CUTOFF BUPRENORPHINE Negative Normal NEGATIVE [facility] Comment on above: Result Comment: <10 ng/ml CUTOFF Cannabinoids Screen Ql (U) Positive Abnormal NEGATIVE [facility] Comment on above: Result Comment: <50 ng/ml CUTOFF *Unconfirmed Screening Result* Unconfirmed screening results are to be used only for medical treatment purposes. Cocaine Ql (U) Negative Normal NEGATIVE [facility] Comment on above: Result Comment: <150 ng/ml CUTOFF Methadone Ql (U) Negative Normal NEGATIVE [facility] Comment on above: Result Comment: <200 ng/ml CUTOFF METHAMPHETAMINE Negative Normal NEGATIVE [facility] Comment on above: Result Comment: <500 ng/ml CUTOFF Opiates Ql (U) Negative Normal NEGATIVE [facility] Comment on above: Result Comment: <100 ng/ml CUTOFF OXYCODONE Negative Normal NEGATIVE [facility] Comment on above: Result Comment: <100 ng/ml CUTOFF Phencyclidine Ql (U) Negative Normal NEGATIVE [facility] Comment on above: Result Comment: <25 ng/ml CUTOFF Protein mass conc (U) Negative Normal NEGATIVE [facility] Comment on above: Result Comment: <300 ng/ml CUTOFF Tricyclic antidepressants Screen Ql (U) Negative Normal NEGATIVE [facility] Comment on above: Result Comment: <300 ng/ml CUTOFF SALICYLATESon 04-25-2018 SALICYLATES <1.0 Normal 0-20 [facility] TSHon 04-25-2018 Thyrotropin Qn 0.480 uIU/ML Normal 0.46-4.68 [facility] URINE MACROSCOPICon 04-25-20 18 Bilirubin Ql (U) Negative Normal NEGATIVE [facility] Clarity Nom (U) CLEAR Normal CLEAR [facility] Color Nom (U) YELLOW Normal YELLOW [facility] Glucose Ql (U) Negative Normal NEGATIVE [facility] pH (U) 6.5 [pH] Normal 5.0-7.0 [facility] Protein mass conc (U) Negative Normal NEGATIVE [facility] URINE HEMOGLOBIN LARGE Abnormal NEGATIVE [facility] URINE KETONE Negative Normal NEGATIVE [facility] URINE LEUKOTEST MODERATE Abnormal NEGATIVE [facility] URINE NITRATES Negative Normal NEGATIVE [facility] URINE SPEC GRAVITY 1.010 Normal 1.010-1.025 [facility] Urobilinogen Qn (U) 0.2 mg/dl Normal 0.2-1.0 [facility] URINE MICROSCOPICon 04-25-20 18 Bacteria LM.HPF #/area (Urine sed) 2+ Abnormal NEGATIVE [facility] Casts LM.LPF #/area (Urine sed) NONE Normal NONE [facility] CRYSTAL RARE Abnormal NONE [facility] Comment on above: Result Comment: CA O XALATE CRYSTALS Epithelial cells LM.HPF #/area (Urine sed) 10 TO 20 Normal [facility] Mucus Ql (Urine sed) TRACE Abnormal NEGATIVE [facility] RBC #/vol (U) 5 TO 10 Normal NEGATIVE [facility] URINE COMMENT POSSIBLY CONTAMINATE D SPECIMEN, CULTURE MUST BE ORDERED SEPARATELY IF DEEMED NECESSARY. Normal [facility] WBC #/vol (U) 1 TO 5 Normal NEGATIVE [facility] Glucose, POCon 02-27-2018 Glucose mass conc 145 mg/dL High 70-105 [facility] Comment on above: Performed By: #### G LUX ####Unless otherwise noted, all testing performed by [address] [id number]: [id number] Director: Geronimo Ibrahim M.D. Glucose mass conc 218 mg/dL High 70-105 [facility] Comment on above: Performed By: #### G LUX ####Unless otherwise noted, all testing performed by [address] [id number]: [id number] Director: Geronimo Ibrahim M.D. Basic Metabolic Profon 02-16 Potassium molar conc 2.9 mmol/L Critically low 3.7-5.3 [facility] Comment on above: Performed By: #### C DP #### [address] [address] #### TROPI, BMP #### [address] [place] [address] (cont.) Normal [facility] Comment on above: Result Comment: Aver age GFR for 20-29 years old: 116 mL/min/1.73sq m Chronic Kidney Disease: <60 mL/min/1.73sq m Kidney failure: <15 mL/min/1.73sq m eGFR calculated using average adult body mass. Additional eGFR calculator available at: http://www.Viewglass/multiple_crcl_2011.htm Performed By: #### C DP #### [address] [address] #### TROPI, BMP #### [address] [place] [address] Anion gap molar conc 17 mmol/L Normal 9-17 [facility] Comment on above: Performed By: #### C DP #### [address] [address] #### TROPI, BMP #### [address] [place] [address] BUN/CRE Ratio 5 Low 9-20 [facility] Comment on above: Performed By: #### C DP #### [address] [address] #### TROPI, BMP #### [address] [place] [address] Calcium mass conc 8.9 mg/dL Normal 8.6-10.4 [facility] Comment on above: Performed By: #### C DP #### [address] [address] #### TROPI, BMP #### [address] [place] [address] Chloride molar conc 102 mmol/L Normal 98-107 [facility] Comment on above: Performed By: #### C DP #### [address] [address] #### TROPI, BMP #### [address] [place] [address] CO2 molar conc 18 mmol/L Low 20-31 [facility] Comment on above: Performed By: #### C DP #### [address] [address] #### TROPI, BMP #### [address] [place] [address] Creatinine mass conc 0.43 mg/dL Low 0.50-0.90 [facility] Comment on above: Performed By: #### C DP #### [address] [address] #### TROPI, BMP #### [address] [place] [address] GFR, Amer >60 Normal >60 [facility] Comment on above: Performed By: #### C DP #### [address] [address] #### TROPI, BMP #### [address] [place] [address] GFR,non Amer >60 Normal >60 [facility] Comment on above: Performed By: #### C DP #### [address] [address] #### TROPI, BMP #### [address] [place] [address] Glucose mass conc 146 mg/dL High 70-99 [facility] Comment on above: Performed By: #### C DP #### [address] [address] #### TROPI, BMP #### [address] [place] [address] Sodium molar conc 137 mmol/L Normal 135-144 [facility] Comment on above: Performed By: #### C DP #### [address] [address] #### TROPI, BMP #### [address] [place] [address] Staging: Normal [facility] Comment on above: Result Comment: Stag e 1: Some kidney damage normal GFR Stage 2: Mild kidney damage GFR 60-89 Stage 3: Moderate kidney damage GFR 30-59 Stage 4: Severe kidney damage GFR 15-29 Stage 5: Severe kidney damage GFR <15 ESRD - chronic treatment by dialysis or transplant Performed at [address] [place] [address] Performed By: #### C DP #### [address] [address] #### TROPI, BMP #### [address] [place] [address] Urea nitrogen mass conc 2 mg/dL Low 6-20 [facility] Comment on above: Performed By: #### C DP #### [address] [address] #### TROPI, BMP #### [address] [place] [address] CBC with Diffon 02-16-2018 Abs. Basophil <0.03 Normal 0.00-0.20 [facility] Comment on above: Performed By: #### C DP #### [address] [address] #### TROPI, BMP #### [address] [place] [address] Abs.Imm.Granulocyte 0.08 k/uL Normal 0.00-0.30 [facility] Comment on above: Result Comment: Perf ormed at [address] [address] Performed By: #### C DP #### [address] [address] #### TROPI, BMP #### [address] [place] [address] Abs.Neutrophil (Seg) 8.67 k/uL High 1.50-8.10 [facility] Comment on above: Performed By: #### C DP #### [address] [address] #### TROPI, BMP #### [address] [place] [id number] Basophils/100 WBC (Bld) 0 % Normal 0-2 [facility] Comment on above: Performed By: #### C DP #### [address] [address] #### TROPI, BMP #### [address] [place] [address] Eosinophils #/vol (Bld) 10*3/uL Normal 0.00-0.44 [facility] Comment on above: Performed By: #### C DP #### [address] [address] #### TROPI, BMP #### [address] [place] [address] Eosinophils/100 WBC (Bld) 0 % Low 1-4 [facility] Comment on above: Performed By: #### C DP #### [address] [address] #### TROPI, BMP #### [address] [place] [address] Erythrocyte distribution width Ratio (RBC) 15.2 % High 11.8-14.4 [facility] Comment on above: Performed By: #### C DP #### [address] [address] #### TROPI, BMP #### [address] [place] [address] Hematocrit Volume Fraction (Bld) 33.3 % Low 36.3-47.1 [facility] Comment on above: Performed By: #### C DP #### [address] [address] #### TROPI, BMP #### [address] [place] [address] Hemoglobin mass conc (Bld) 10.9 g/dL Low 11.9-15.1 [facility] Comment on above: Performed By: #### C DP #### [address] [address] #### TROPI, BMP #### [address] [place] [address] Immature granulocytes #/vol (Bld) 1 % High 0 [facility] Comment on above: Performed By: #### C DP #### [address] [address] #### TROPI, BMP #### [address] [place] [address] Lymphocytes #/vol (Bld) 1.82 10*3/uL Normal 1.10-3.70 [facility] Comment on above: Performed By: #### C DP #### [address] [address] #### TROPI, BMP #### [address] [place] [address] Lymphocytes/100 WBC (Bld) 16 % Low 24-43 [facility] Comment on above: Performed By: #### C DP #### [address] [address] #### TROPI, BMP #### [address] [place] [address] MCH Entitic mass (RBC) 27.2 pg Normal 25.2-33.5 [facility] Comment on above: Performed By: #### C DP #### [address] [address] #### TROPI, BMP #### [address] [place] [address] MCHC mass conc (RBC) 32.7 g/dL Normal 28.4-34.8 [facility] Comment on above: Performed By: #### C DP #### [address] [address] #### TROPI, BMP #### [address] [place] [address] MCV Entitic volume (RBC) 83.0 fL Normal 82.6-102.9 [facility] Comment on above: Performed By: #### C DP #### [address] [address] #### TROPI, BMP #### [address] [place] [address] Monocytes #/vol (Bld) 0.55 10*3/uL Normal 0.10-1.[address] [facility] Comment on above: Performed By: #### C DP #### [address] [address] #### TROPI, BMP #### [address] [place] [address] Monocytes/100 WBC (Bld) 5 % Normal 3-12 [facility] Comment on above: Performed By: #### C DP #### [address] [address] #### TROPI, BMP #### [address] [place] [address] Neutrophil (Seg) 78 % High 36-65 [facility] Comment on above: Performed By: #### C DP #### [address] [address] #### TROPI, BMP #### [address] [place] [address] NRBC Automated 0.0 per 100 WBC Normal 0.0 [facility] Comment on above: Performed By: #### C DP #### [address] [address] #### TROPI, BMP #### [address] [place] [address] Platelet mean volume Entitic volume (Bld) 10.2 fL Normal 8.1-13.5 [facility] Comment on above: Performed By: #### C DP #### [address] [address] #### TROPI, BMP #### [address] [place] [address] Platelets #/vol (Bld) 236 10*3/uL Normal 138-453 [facility] Comment on above: Performed By: #### C DP #### [address] [address] #### TROPI, BMP #### [address] [place] [address] RBC #/vol (Bld) 4.01 10*6/uL Normal 3.95-5.11 [facility] Comment on above: Performed By: #### C DP #### [address] [address] #### TROPI, BMP #### [address] [place] [address] WBC #/vol (Bld) 11.1 10*3/uL Normal 3.5-11.3 [facility] Comment on above: Performed By: #### C DP #### [address] [address] #### TROPI, BMP #### [address] [place] [address] Auto Diff Performed NOT REPORTED Normal [facility] Comment on above: Performed By: #### C DP #### [address] [address] #### TROPI, BMP #### [address] [place] [address] Platelets #/vol (Bld) NOT REPORTED Normal [facility] Comment on above: Performed By: #### C DP #### [address] [address] #### TROPI, BMP #### [address] [place] [address] RBC morphology finding Nom (Bld) NOT REPORTED Normal [facility] Comment on above: Performed By: #### C DP #### [address] [address] #### TROPI, BMP #### [address] [place] [address] WBC Morphology NOT REPORTED Normal [facility] Comment on above: Performed By: #### C DP #### [address] [address] #### TROPI, BMP #### [address] [place] [address] Troponinon 02-16-2018 Troponin I.cardiac mass conc ng/mL Normal <0.03 [facility] Comment on above: Result Comment: Trop onin T results cannot be compared to Troponin-I results. Performed By: #### C DP #### [address] [address] #### TROPI, BMP #### [address] [place] [address] Troponin I.cardiac mass conc Normal [facility] Comment on above: Result Comment: Refe [...] require additional information for diagnosis. Performed at [address] [place] [address] Performed By: #### C DP #### [address] [address] #### TROPI, BMP #### [address] [place], [place] [id number] CBCon 02-15-2018 ABSOLUTE BAS 0.0 X10 Normal [facility] Comment on above: Result Comment: Test ing performed at [place] [address] Performed By: #### A CBC, CHEM7F, BHCG2 ####[place] [address] ABSOLUTE EOS 0.10 X10 Normal [facility] Comment on above: Performed By: #### A CBC, CHEM7F, BHCG2 ####[place] [address] ABSOLUTE NEUTROPHIL COUNT 10.8 x10 High 1.0-7.0 [facility] Comment on above: Performed By: #### A CBC, CHEM7F, BHCG2 ####[place] [address] Basophils/100 WBC Auto (Bld) 0.3 % Normal 0.0-2.0 [facility] Comment on above: Performed By: #### A CBC, CHEM7F, BHCG2 ####[place] [address] DTYPE AUTO DIFF Normal [facility] Comment on above: Performed By: #### A CBC, CHEM7F, BHCG2 ####[place] [address] Eosinophils/100 WBC Auto (Bld) 1.1 % Normal 0.0-11.0 [facility] Comment on above: Performed By: #### A CBC, CHEM7F, BHCG2 ####[place] [address] Lymphocytes Auto #/vol (Bld) 1.70 X10 Normal [facility] Comment on above: Performed By: #### A CBC, CHEM7F, BHCG2 ####[place] [address] Lymphocytes/100 WBC Auto (Bld) 12.7 % Low 20.0-55.0 [facility] Comment on above: Performed By: #### A CBC, CHEM7F, BHCG2 ####[place] [address] Monocytes Auto #/vol (Bld) 0.6 X10 Normal [facility] Comment on above: Performed By: #### A CBC, CHEM7F, BHCG2 ####[place] [address] Monocytes/100 WBC Auto (Bld) 4.8 % Normal 0.0-10.0 [facility] Comment on above: Performed By: #### A CBC, CHEM7F, BHCG2 ####[place] [address] Neutrophils/100 WBC Auto (Bld) 81.1 % High 37.0-75.0 [facility] Comment on above: Performed By: #### A CBC, CHEM7F, BHCG2 ####[place] [address] Erythrocyte distribution width Auto Ratio (RBC) 16.8 % High 11.5-14.5 [facility] Comment on above: Performed By: #### A CBC, CHEM7F, BHCG2 ####[place] [address] Hematocrit Auto Volume Fraction (Bld) 36.2 % Normal 36.0-48.0 [facility] Comment on above: Performed By: #### A CBC, CHEM7F, BHCG2 ####[place] [address] Hemoglobin mass conc (Bld) 12.0 g/dL Normal 12.0-16.0 [facility] Comment on above: Performed By: #### A CBC, CHEM7F, BHCG2 ####[place] [address] MCH Auto Entitic mass (RBC) 27.8 pg Normal 26.0-35.0 [facility] Comment on above: Performed By: #### A CBC, CHEM7F, BHCG2 ####[place] [address] MCHC Auto mass conc (RBC) 33.2 g/dL Normal 27.0-37.0 [facility] Comment on above: Performed By: #### A CBC, CHEM7F, BHCG2 ####[place] [address] MCV Auto Entitic volume (RBC) 83.7 fL Normal 80.0-100.0 [facility] Comment on above: Performed By: #### A CBC, CHEM7F, BHCG2 ####[place] [address] Platelet mean volume Auto Entitic volume (Bld) 8.3 fL Normal 7.4-11.0 [facility] Comment on above: Performed By: #### A CBC, CHEM7F, BHCG2 ####[place] [address] Platelets Auto #/vol (Bld) 245 /cmm Normal 130.0-400.0 [facility] Comment on above: Performed By: #### A CBC, CHEM7F, BHCG2 ####[place] [address] RBC Auto #/vol (Bld) 4.33 /cmm Normal 4.0-5.4 [facility] Comment on above: Performed By: #### A CBC, CHEM7F, BHCG2 ####[place] [address] WBC Auto #/vol (Bld) 13.4 /cmm High 3.6-11.0 [facility] Comment on above: Performed By: #### A CBC, CHEM7F, BHCG2 ####[place] [address] CMP FASTINGon 02-15-2018 A:G RATIO 1.2 RATIO Low 1.3-2.2 [facility] Comment on above: Performed By: #### A CBC, CHEM7F, BHCG2 ####[place] [address] Albumin mass conc 4.1 G/dl Normal 3.5-5.0 [facility] Comment on above: Performed By: #### A CBC, CHEM7F, BHCG2 ####[place] [address] ALP enzyme act/vol 105 U/L Normal 38-126 [facility] Comment on above: Performed By: #### A CBC, CHEM7F, BHCG2 ####[place] [address] ALT enzyme act/vol 11 U/L Normal 9-52 [facility] Comment on above: Performed By: #### A CBC, CHEM7F, BHCG2 ####[place] [address] AST enzyme act/vol 16 U/L Normal 14-36 [facility] Comment on above: Performed By: #### A CBC, CHEM7F, BHCG2 ####[place] [address] Bilirubin mass conc 0.8 mg/dL Normal 0.2-1.3 [facility] Comment on above: Performed By: #### A CBC, CHEM7F, BHCG2 ####[place] [address] Calcium mass conc 8.9 mg/dL Normal 8.4-10.2 [facility] Comment on above: Performed By: #### A CBC, CHEM7F, BHCG2 ####[place] [address] Chloride molar conc 105 mmol/L Normal 98-107 [facility] Comment on above: Performed By: #### A CBC, CHEM7F, BHCG2 ####[place] [address] CO2 molar conc 19 mmol/L Low 22-30 [facility] Comment on above: Performed By: #### A CBC, CHEM7F, BHCG2 ####[place] [address] Creatinine mass conc 0.5 mg/dL Low 0.7-1.2 [facility] Comment on above: Performed By: #### A CBC, CHEM7F, BHCG2 ####[place] [address] EST. GFR, >60 Normal [facility] Comment on above: Performed By: #### A CBC, CHEM7F, BHCG2 ####[place] [address] EST. GFR,Non >60 Normal [facility] Comment on above: Performed By: #### A CBC, CHEM7F, BHCG2 ####[place] [address] GFR/1.73 sq M predicted among non-blacks MDRD vol rate/area (S/P/Bld) Average GFR for 20-29 years old = 116. Normal [facility] Comment on above: Result Comment: Repair Supervisor frantz Kidney disease, GFR = <60.Kidney failure, GFR = <15.The GFR estimate is not adjusted for extreme body surface area or acute process, nor has it been validated for women or ethnic groups other than and .Testing performed at [place] [address] Performed By: #### A CBC, CHEM7F, BHCG2 ####[place] [address] Glucose mass conc 133 mg/dL High 70-100 [facility] Comment on above: Result Comment: NORM AL <100 mg/dLPREDIABETES 101-126 mg/dLDIABETES 126 mg/dL or higher Performed By: #### A CBC, CHEM7F, BHCG2 ####[place] [address] Potassium molar conc 3.3 mmol/L Low 3.5-5.1 [facility] Comment on above: Performed By: #### A CBC, CHEM7F, BHCG2 ####[place] [address] Protein mass conc 7.5 g/dL Normal 6.3-8.2 [facility] Comment on above: Performed By: #### A CBC, CHEM7F, BHCG2 ####[place] [address] Sodium molar conc 139 mmol/L Normal 137-145 [facility] Comment on above: Performed By: #### A CBC, CHEM7F, BHCG2 ####[place] [address] Urea nitrogen mass conc (Bld) 3 mg/dL Low 7-20 [facility] Comment on above: Performed By: #### A CBC, CHEM7F, BHCG2 ####[place] [address] MAGNESIUMon 02-15-2018 Magnesium mass conc 1.6 mg/dL Normal 1.6-2.3 [facility] Comment on above: Result Comment: Test ing performed at [place] [address] Performed By: #### A CBC, CHEM7F, BHCG2 ####[place] [address] CHLAM/GC AMPLIFon 01-29-2018 CHLAMYDIA NUC. AMP Negative Normal Negative [facility] GONOCOCCUS NUC. AMP Negative Normal Negative [facility] Comment on above: Result Comment: [facility] FIBRONECTINon 01-28-20 18 FIBRONECTIN Negative Normal NEGATIVE [facility] Comment on above: Result Comment: NO F ETAL FIBRONECTIN DETECTED.Testing performed at [place] [address] Performed By: #### A CBC, CHEM7F, BHCG2 ####[place] [address] RAPID TOX SCREEN,URINE WITH REFLEXon 01-27-2018 AMPHETAMINE Negative Normal NEGATIVE [facility] Comment on above: Result Comment: <500 ng/ml CUTOFF Performed By: #### A CBC, CHEM7F, BHCG2 ####[place] [address] BARBITURATES Negative Normal NEGATIVE [facility] Comment on above: Result Comment: <200 ng/ml CUTOFF Performed By: #### A CBC, CHEM7F, BHCG2 ####[place] [address] BENZODIAZEPINES Positive Abnormal NEGATIVE [facility] Comment on above: Result Comment: <150 ng/ml CUTOFF*Unconfirmed Screening Result* Unconfirmed screening results are to be used only for medical treatment purposes. Performed By: #### A CBC, CHEM7F, BHCG2 ####[place] [address] BUPRENORPHINE Negative Normal NEGATIVE [facility] Comment on above: Result Comment: <10 ng/ml CUTOFFTesting performed at [place] [address] Performed By: #### A CBC, CHEM7F, BHCG2 ####[place] [address] CANNABINOIDS Positive Abnormal NEGATIVE [facility] Comment on above: Result Comment: <50 ng/ml CUTOFF*Unconfirmed Screening Result* Unconfirmed screening results are to be used only for medical treatment purposes. Performed By: #### A CBC, CHEM7F, BHCG2 ####[place] [address] COCAINE Negative Normal NEGATIVE [facility] Comment on above: Result Comment: <150 ng/ml CUTOFF Performed By: #### A CBC, CHEM7F, BHCG2 ####[place] [address] METHADONE Negative Normal NEGATIVE [facility] Comment on above: Result Comment: <200 ng/ml CUTOFF Performed By: #### A CBC, CHEM7F, BHCG2 ####Testing performed at [address] [place] [address] METHAMPHETAMINE Negative Normal NEGATIVE [facility] Comment on above: Result Comment: <500 ng/ml CUTOFF Performed By: #### A CBC, CHEM7F, BHCG2 ####[place] [address] OPIATES Negative Normal NEGATIVE [facility] Comment on above: Result Comment: <100 ng/ml CUTOFF Performed By: #### A CBC, CHEM7F, BHCG2 ####[place] [address] OXYCODONE Negative Normal NEGATIVE [facility] Comment on above: Result Comment: <100 ng/ml CUTOFF Performed By: #### A CBC, CHEM7F, BHCG2 ####[place] [address] PHENCYCLIDINE Negative Normal NEGATIVE [facility] Comment on above: Result Comment: <25 ng/ml CUTOFF Performed By: #### A CBC, CHEM7F, BHCG2 ####[place] [address] Protein mass conc Negative Normal NEGATIVE [facility] Comment on above: Result Comment: <300 ng/ml CUTOFF Performed By: #### A CBC, CHEM7F, BHCG2 ####[place] [address] TRICYCLIC ANTIDEPRESSANTS Negative Normal NEGATIVE [facility] Comment on above: Result Comment: <300 ng/ml CUTOFF Performed By: #### A CBC, CHEM7F, BHCG2 ####[place] [address] STREP SCREEN GRP Bon 01-27- 018 STREP SCREEN GRP B SPECIMEN DESCRIPTION VAGINAL/RECTAL CULTURE NO GROUP B BETA STREP ISOLATED * Result Note: Testing performed at [place] [address] * REPORT STATUS 01/29/2018 * Result Note: FINAL * Normal [facility] Comment on above: Performed By: #### A CBC, CHEM7F, BHCG2 ####Testing performed at [address] [address] URINE CULTUREon 01-27-2018 Bacteria identified Cx Nom (U) SPECIMEN DESCRIPTION URINE - OTHERUA DIPSTICK NITRITE NEGATIVE * Result Note: LEUKOCYTE POSITIVE *CULTURE MULTIPLE SPECIES PRESENT;PROBABLE CONTAMINATION. SUGGEST REPEAT SPECIMEN. * Result Note: Testing performed at [place] [address] *REPORT STATUS 01/29/2018 * Result Note: FINAL * Normal [facility] Comment on above: Performed By: #### A CBC, CHEM7F, BHCG2 ####[place] [address] URINE MACROSCOPICon 01-28-20 18 Bilirubin Ql (U) SMALL Abnormal NEGATIVE [facility] Comment on above: Performed By: #### A CBC, CHEM7F, BHCG2 ####[place] [address] Clarity Nom (U) CLEAR Abnormal CLEAR [facility] Comment on above: Performed By: #### A CBC, CHEM7F, BHCG2 ####[place] [address] Color Nom (U) YELLOW Normal YELLOW [facility] Comment on above: Performed By: #### A CBC, CHEM7F, BHCG2 ####[place] [address] Glucose Ql (U) Negative Normal NEGATIVE [facility] Comment on above: Performed By: #### A CBC, CHEM7F, BHCG2 ####[place] [address] pH Test strip (U) 6.0 [pH] Normal 5.0-7.0 [facility] Comment on above: Performed By: #### A CBC, CHEM7F, BHCG2 ####[place] [address] URINE HEMOGLOBIN Negative Normal NEGATIVE [facility] Comment on above: Performed By: #### A CBC, CHEM7F, BHCG2 ####Testing performed at [place] [id number] URINE KETONE TRACE Abnormal NEGATIVE [facility] Comment on above: Performed By: #### A CBC, CHEM7F, BHCG2 ####[place] [address] URINE LEUKOTEST SMALL Abnormal NEGATIVE [facility] Comment on above: Result Comment: Test ing performed at [place] [address] Performed By: #### A CBC, CHEM7F, BHCG2 ####[place] [address] URINE NITRATES Negative Normal NEGATIVE [facility] Comment on above: Performed By: #### A CBC, CHEM7F, BHCG2 ####[place] [address] URINE SPEC GRAVITY >1.030 High 1.010-1.025 [facility] Comment on above: Performed By: #### A CBC, CHEM7F, BHCG2 ####[place] [address] URINE TOTAL PROTEIN 30 mg/dl Abnormal NEGATIVE [facility] Comment on above: Performed By: #### A CBC, CHEM7F, BHCG2 ####[place] [address] Urobilinogen Test strip Qn (U) 1.0 mg/dl Normal 0.2-1.0 [facility] Comment on above: Performed By: #### A CBC, CHEM7F, BHCG2 ####[place] [address] URINE MICROSCOPICon 01-28-20 18 BACTERIA 2+ Abnormal NEGATIVE [facility] Comment on above: Performed By: #### A CBC, CHEM7F, BHCG2 ####[place] [address] CASTS NONE Normal NONE [facility] Comment on above: Performed By: #### A CBC, CHEM7F, BHCG2 ####Testing performed at [place] [id number] CRYSTAL NONE Normal NONE [facility] Comment on above: Performed By: #### A CBC, CHEM7F, BHCG2 ####[place] [address] EPITHELIAL CELLS 5 TO 10 Normal [facility] Comment on above: Performed By: #### A CBC, CHEM7F, BHCG2 ####[place] [address] MUCUS 1+ Abnormal NEGATIVE [facility] Comment on above: Performed By: #### A CBC, CHEM7F, BHCG2 ####[place] [address] RBC Test strip #/vol (U) 1 TO 5 Normal NEGATIVE [facility] Comment on above: Performed By: #### A CBC, CHEM7F, BHCG2 ####[place] [address] URINE COMMENT REFLEX CULTURE PER ESTABLISHED CRITERIA. Normal [facility] Comment on above: Result Comment: Test ing performed at [place] [address] Performed By: #### A CBC, CHEM7F, BHCG2 ####[place] [address] URINE WBC'S 1 TO 5 Normal NEGATIVE [facility] Comment on above: Performed By: #### A CBC, CHEM7F, BHCG2 ####[place] [address] Alcohol, Medicalon 8 Ethanol mass conc Negative Normal [facility] Comment on above: Performed By: #### A LC ####Unless otherwise noted, all testing performed by [place] [address] [place] Vil[place], [place] [phone]: [id number] Director: Geronimo Ibrahim M.D. Drugs of Abuse, Urineon 02-1 3-2018 Amphetamines,Ur None Detected Normal None Detected [facility] Comment on above: Performed By: #### D RUGSCRU ####Unless otherwise noted, all testing performed by [place] [id number]: [id number] Director: Geronimo Ibrahim M.D. Barbiturates,Ur None Detected Normal None Detected [facility] Comment on above: Performed By: #### D RUGSCRU ####Unless otherwise noted, all testing performed by [place] [id number]: [id number] Director: Geronimo Ibrahim M.D. Benzodiazepine,Ur None Detected Normal None Detected [facility] Comment on above: Performed By: #### D RUGSCRU ####Unless otherwise noted, all testing performed by [place] [id number]: [id number] Director: Geronimo Ibrahim M.D. Cannabinoids,Ur Positive Abnormal [facility] Detected [facility] Comment on above: Performed By: #### D RUGSCRU ####Unless otherwise noted, all testing performed by [place] [id number]: [id number] Director: Geronimo Ibrahim M.D. Cocaine,Ur None Detected Normal None Detected [facility] Comment on above: Performed By: #### D RUGSCRU ####Unless otherwise noted, all testing performed by [place] [id number]: [id number] Director: Geronimo Ibrahim M.D. DOA Cutoffs See comment. Normal [facility] Comment on above: Result Comment: Drug s of Abuse, Urine Presumptive Positive Cutoff Concentrations.Amphetamine/Methamphetamine: 1000 ng/mlBarbiturates: 200 ng/mlBenzodiazepines and metabolities: 200 ng/mlCannabinoids: 50 ng/mlCocaine/Benzoylecgonine: 300 ng/mlMethadone:300 ng/mlOpiates: 300 ng/mlOxycodone/Oxymorphone: 100 ng/ml Performed By: #### D RUGSCRU ####Unless otherwise noted, all testing performed by [place] [address]CLIA: [id number] Director: Geronimo Ibrahim M.D. Methadone,Ur None Detected Normal None Detected [facility] Comment on above: Performed By: #### D RUGSCRU ####Unless otherwise noted, all testing performed by [address] [phone]: [id number] Director: Geronimo Ibrahim M.D. Opiates,Ur None Detected Normal None Detected [facility] Comment on above: Performed By: #### D RUGSCRU ####Unless otherwise noted, all testing performed by [address] [phone]: [id number] Director: Geronimo Ibrahim M.D. Oxycodone, Urine None Detected Normal None Detected [facility] Comment on above: Result Comment: THES E DRUGS OF ABUSE TESTS ARE PROVIDED A MEDICAL SCREENING ONLY.POSITIVE RESULTS ARENOT CONFIRMED BY GCMS Performed By: #### D RUGSCRU ####Unless otherwise noted, all testing performed by [place] [id number]: [id number] Director: Geronimo Ibrahim M.D. SENDOUT TESTon 11-15-2017 SENDOUT TEST SENT TO [facility] Comment on above: Result Comment: Test ing performed at [place] [address] Performed By: #### K OHP ####[place] [address] CBCon 10-26-2017 ABSOLUTE BAS 0.0 X10 Normal [facility] Comment on above: Result Comment: Test ing performed at [place] [address] Performed By: #### K OHP ####[place] [address] ABSOLUTE EOS 0.10 X10 [facility] Comment on above: Performed By: #### K OHP ####[place] [address] ABSOLUTE NEUTROPHIL COUNT 6.2 x10 Normal 1.0-7.0 [facility] Comment on above: Performed By: #### K OHP ####[place] [address] Basophils/100 WBC Auto (Bld) 0.5 % Normal 0.0-2.0 [facility] Comment on above: Performed By: #### K OHP ####[place] [address] DTYPE AUTO DIFF Normal [facility] Comment on above: Performed By: #### K OHP ####[place] [address] Eosinophils/100 WBC Auto (Bld) 1.4 % Normal 0.0-11.0 [facility] Comment on above: Performed By: #### K OHP ####[place] [address] Lymphocytes Auto #/vol (Bld) 1.50 X10 [facility] Comment on above: Performed By: #### K OHP ####Testing performed at [address] [address] Lymphocytes/100 WBC Auto (Bld) 17.7 % Low 20.0-55.0 [facility] Comment on above: Performed By: #### K OHP ####Testing performed at [address] [address] Monocytes Auto #/vol (Bld) 0.6 X10 Normal [facility] Comment on above: Performed By: #### K OHP ####Testing performed at [address] [address] Monocytes/100 WBC Auto (Bld) 6.7 % Normal 0.0-10.0 [facility] Comment on above: Performed By: #### K OHP ####Testing performed at [address] [address] Neutrophils/100 WBC Auto (Bld) 73.7 % Normal 37.0-75.0 [facility] Comment on above: Performed By: #### K OHP ####Testing performed at [address] [address] Erythrocyte distribution width Auto Ratio (RBC) 14.6 % High 11.5-14.5 [facility] Comment on above: Performed By: #### K OHP ####Testing performed at [address] [address] Hematocrit Auto Volume Fraction (Bld) 37.3 % Normal 36.0-48.0 [facility] Comment on above: Performed By: #### K OHP ####Testing performed at [address] [address] Hemoglobin mass conc (Bld) 12.4 g/dL Normal 12.0-16.0 [facility] Comment on above: Performed By: #### K OHP ####Testing performed at [address] [address] MCH Auto Entitic mass (RBC) 27.0 pg Normal 26.0-35.0 [facility] Comment on above: Performed By: #### K OHP ####Testing performed at [place] [id number] MCHC Auto mass conc (RBC) 33.4 g/dL Normal 27.0-37.0 [facility] Comment on above: Performed By: #### K OHP ####[place] [address] MCV Auto Entitic volume (RBC) 81.0 fL Normal 80.0-100.0 [facility] Comment on above: Performed By: #### K OHP ####[place] [address] Platelet mean volume Auto Entitic volume (Bld) 8.4 fL Normal 7.4-11.0 [facility] Comment on above: Performed By: #### K OHP ####[place] [address] Platelets Auto #/vol (Bld) 247 /cmm Normal 130.0-400.0 [facility] Comment on above: Performed By: #### K OHP ####[place] [address] RBC Auto #/vol (Bld) 4.60 /cmm Normal 4.0-5.4 [facility] Comment on above: Performed By: #### K OHP ####[place] [address] WBC Auto #/vol (Bld) 8.4 /cmm Normal 3.6-11.0 [facility] Comment on above: Performed By: #### K OHP ####[place] [address] CT ABDOMEN/PELVIS WITHOUT CO NTRASTon 10-26-2017 CT [...] findings in the abdomen or pelvis. Normal [facility] ESRon 10-26-2017 ESR Velocity (Bld) 60 mm/h High 0-20 [facility] Comment on above: Result Comment: Test ing performed at [place] [address] Performed By: #### K [place] ####Testing performed at [address],QUANTITATIVEon 10-25-20 17 [facility],QUANTITATIVE [address].00 MIU/ML Normal [facility] Comment on above: Result Comment: [facility] INTERPRETIVE RANGES: NON FEMALE 0-6 MIU/MLMALE ADULT [...] qualitative hCG testing of urine.Testing performed at [place] [address] Performed By: #### K OHP ####[place] [address] BMP FASTINGon 10-25-2017 Anion gap 3 molar conc 12 mmol/L Normal 8-16 [facility] Comment on above: Performed By: #### K OHP ####[place] [address] Calcium mass conc 9.3 mg/dL Normal 8.4-10.2 [facility] Comment on above: Performed By: #### K OHP ####[place] [address] Chloride molar conc 104 mmol/L Normal 98-107 [facility] Comment on above: Performed By: #### K OHP ####[place] [address] CO2 molar conc 20 mmol/L Low 22-30 [facility] Comment on above: Performed By: #### K OHP ####[place] [address] Creatinine mass conc 0.7 mg/dL Normal 0.7-1.2 [facility] Comment on above: Performed By: #### K OHP ####[place] [address] EST. GFR, >60 Normal [facility] Comment on above: Performed By: #### K OHP ####[place] [address] EST. GFR,Non >60 Normal [facility] Comment on above: Performed By: #### K OHP ####[place] [address] GFR/1.73 sq M predicted among non-blacks MDRD vol rate/area (S/P/Bld) Average GFR for 20-29 years old = 116. Normal [facility] Comment on above: Result Comment: Repair Supervisor frantz Kidney disease, GFR = <60.Kidney failure, GFR = <15.The GFR estimate is not adjusted for extreme body surface area or acute process, nor has it been validated for women or ethnic groups other than and .Testing performed at [place] [address] Performed By: #### K OHP ####[place] [address] Glucose mass conc 101 mg/dL High 70-100 [facility] Comment on above: Result Comment: NORM AL <100 mg/dLPREDIABETES 101-126 mg/dLDIABETES 126 mg/dL or higher Performed By: #### K OHP ####[place] [address] Potassium molar conc 3.5 mmol/L Normal 3.5-5.1 [facility] Comment on above: Performed By: #### K OHP ####[place] [address] Sodium molar conc 136 mmol/L Low 137-145 [facility] Comment on above: Performed By: #### K OHP ####[place] [address] Urea nitrogen mass conc (Bld) 6 mg/dL Low 7-20 [facility] Comment on above: Performed By: #### K OHP ####[place] [address] CBCon 10-25-2017 ABSOLUTE BAS 0.2 X10 Normal [facility] Comment on above: Result Comment: Test ing performed at [place] [address] Performed By: #### K OHP ####[place] [address] ABSOLUTE EOS 0.20 X10 Normal [facility] Comment on above: Performed By: #### K OHP ####[place] [address] ABSOLUTE NEUTROPHIL COUNT 9.6 x10 High 1.0-7.0 [facility] Comment on above: Performed By: #### K OHP ####Testing performed at [address] [address] Basophils/100 WBC Auto (Bld) 1.3 % Normal 0.0-2.0 [facility] Comment on above: Performed By: #### K OHP ####Testing performed at [address] [address] DTYPE AUTO DIFF Normal [facility] Comment on above: Performed By: #### K OHP ####Testing performed at [address] [address] Eosinophils/100 WBC Auto (Bld) 1.6 % Normal 0.0-11.0 [facility] Comment on above: Performed By: #### K OHP ####Testing performed at [address] [address] Lymphocytes Auto #/vol (Bld) 2.50 X10 Normal [facility] Comment on above: Performed By: #### K OHP ####Testing performed at [address] [address] Lymphocytes/100 WBC Auto (Bld) 18.7 % Low 20.0-55.0 [facility] Comment on above: Performed By: #### K OHP ####Testing performed at [address] [address] Monocytes Auto #/vol (Bld) 0.7 X10 Normal [facility] Comment on above: Performed By: #### K OHP ####Testing performed at [address] [address] Monocytes/100 WBC Auto (Bld) 5.3 % Normal 0.0-10.0 [facility] Comment on above: Performed By: #### K OHP ####Testing performed at [address] [address] Neutrophils/100 WBC Auto (Bld) 73.1 % Normal 37.0-75.0 [facility] Comment on above: Performed By: #### K OHP ####[place] [address] Erythrocyte distribution width Auto Ratio (RBC) 14.7 % High 11.5-14.5 [facility] Comment on above: Performed By: #### K OHP ####[place] [address] Hematocrit Auto Volume Fraction (Bld) 39.5 % Normal 36.0-48.0 [facility] Comment on above: Performed By: #### K OHP ####[place] [address] Hemoglobin mass conc (Bld) 13.0 g/dL Normal 12.0-16.0 [facility] Comment on above: Performed By: #### K OHP ####[place] [address] MCH Auto Entitic mass (RBC) 26.7 pg Normal 26.0-35.0 [facility] Comment on above: Performed By: #### K OHP ####[place] [address] MCHC Auto mass conc (RBC) 32.8 g/dL Normal 27.0-37.0 [facility] Comment on above: Performed By: #### K OHP ####[place] [address] MCV Auto Entitic volume (RBC) 81.3 fL Normal 80.0-100.0 [facility] Comment on above: Performed By: #### K OHP ####[place] [address] Platelet mean volume Auto Entitic volume (Bld) 8.3 fL Normal 7.4-11.0 [facility] Comment on above: Result Comment: Test ing performed at [place] [address] Performed By: #### K OHP ####[place] [address] Platelets Auto #/vol (Bld) 289 /cmm Normal 130.0-400.0 [facility] Comment on above: Performed By: #### K OHP ####[place] [address] RBC Auto #/vol (Bld) 4.85 /cmm Normal 4.0-5.4 [facility] Comment on above: Performed By: #### K OHP ####[place] [address] WBC Auto #/vol (Bld) 13.1 /cmm High 3.6-11.0 [facility] Comment on above: Performed By: #### K OHP ####[place] [address] LACTIC ACIDon 10-25-2017 Lactate molar conc 1.5 mmol/L Normal 0.7-2.1 [facility] Comment on above: Result Comment: Test ing performed at [place] [address] Performed By: #### K OHP ####[place] [address] LIVER PANELon 10-25-2017 Albumin mass conc 4.4 g/dL Normal 2.9-5.3 [facility] Comment on above: Performed By: #### K OHP ####[place] [address] ALP enzyme act/vol 74 U/L Normal 38-126 [facility] Comment on above: Performed By: #### K OHP ####[place] [address] ALT enzyme act/vol 27 U/L Normal 9-52 [facility] Comment on above: Result Comment: Test ing performed at [place] [address] Performed By: #### K OHP ####[place] [address] AST enzyme act/vol 14 U/L Normal 14-36 [facility] Comment on above: Performed By: #### K OHP ####[place] [address] Bilirubin mass conc 1.2 mg/dL Normal 0.2-1.3 [facility] Comment on above: Performed By: #### K OHP ####[place] [address] Bilirubin.direct mass conc 0.3 mg/dL Normal 0-0.4 [facility] Comment on above: Performed By: #### K OHP ####[place] [address] Protein mass conc 8.0 g/dL Normal 6.3-8.2 [facility] Comment on above: Performed By: #### K OHP ####[place] [address] RAPID FLU Aon 10-25-2017 INFLUENZA A AG Negative Normal NEGATIVE [facility] Comment on above: Performed By: #### K OHP ####[place] [address] INFLUENZA B AG Negative Normal NEGATIVE [facility] Comment on above: Result Comment: TEST ING PERFORMED BY NAATesting performed at [place] [address] Performed By: #### K OHP ####[place] [address] URINE MACROSCOPICon 10-25-20 17 Bilirubin Ql (U) SMALL Abnormal NEGATIVE [facility] Comment on above: Performed By: #### U MAC, UMIC ####Testing performed at [place] [id number] Clarity Nom (U) SLIGHTLY CLOUDY Abnormal CLEAR [facility] Comment on above: Performed By: #### U MAC, UMIC ####[place] [address] Color Nom (U) YELLOW Normal YELLOW [facility] Comment on above: Performed By: #### U MAC, UMIC ####[place] [address] Glucose Ql (U) Negative Normal NEGATIVE [facility] Comment on above: Performed By: #### U MAC, UMIC ####[place] [address] pH Test strip (U) 5.5 [pH] Normal 5.0-7.0 [facility] Comment on above: Performed By: #### U MAC, UMIC ####[place] [address] URINE HEMOGLOBIN Negative Normal NEGATIVE [facility] Comment on above: Performed By: #### U MAC, UMIC ####[place] [address] URINE KETONE 15 mg/dl Abnormal NEGATIVE [facility] Comment on above: Performed By: #### U MAC, UMIC ####[place] [address] URINE LEUKOTEST Negative Normal NEGATIVE [facility] Comment on above: Result Comment: Test ing performed at [place] [address] Performed By: #### U MAC, UMIC ####[place] [address] URINE NITRATES Negative Normal NEGATIVE [facility] Comment on above: Performed By: #### U MAC, UMIC ####[place] [address] URINE SPEC GRAVITY >1.030 High 1.010-1.025 [facility] Comment on above: Performed By: #### U MAC, UMIC ####[place] [address] URINE TOTAL PROTEIN TRACE Abnormal NEGATIVE [facility] Comment on above: Performed By: #### U MAC, UMIC ####Testing performed at [facility] [address] [place] [address] Urobilinogen Test strip Qn (U) 0.2 mg/dl Normal 0.2-1.0 [facility] Comment on above: Performed By: #### U MAC, UMIC ####[place] [address] URINE MICROSCOPICon 10-25-20 17 BACTERIA 1+ Abnormal NEGATIVE [facility] Comment on above: Performed By: #### U MAC, UMIC ####[place] [address] CASTS NONE [facility] Comment on above: Performed By: #### U MAC, UMIC ####[place] [address] CRYSTAL NONE [facility] Comment on above: Performed By: #### U MAC, UMIC ####[place] [address] EPITHELIAL CELLS 1 TO 5 Normal [facility] Comment on above: Performed By: #### U MAC, UMIC ####[place] [address] MUCUS TRACE Abnormal NEGATIVE [facility] Comment on above: Performed By: #### U MAC, UMIC ####[place] [address] RBC Test strip #/vol (U) Negative Normal NEGATIVE [facility] Comment on above: Performed By: #### U MAC, UMIC ####[place] [address] URINE COMMENT CULTURE CRITERIA NOT MET, NO CULTURE PERFORMED. Normal [facility] Comment on above: Result Comment: Test ing performed at [place] [address] Performed By: #### U MAC, UMIC ####[place] [address] URINE WBC'S 1 TO 5 Normal NEGATIVE [facility] Comment on above: Performed By: #### U MAC, UMIC ####[place] [address] CHLAM/GC AMPLIFon 10-17-2017 CHLAMYDIA NUC. AMP Negative Normal Negative [facility] GONOCOCCUS NUC. AMP Negative Normal Negative [facility] Comment on above: Result Comment: PERF ORMED AT [facility] BHCG,QUANTITATIVEon 10-15-20 17 CG,QUANTITATIVE [address]58[address].00 MIU/ML Normal Av [facility] Comment on above: Result Comment: [facility] INTERPRETIVE RANGES: NON FEMALE 0-6 MIU/MLMALE ADULT [...] qualitative hCG testing of urine.Testing performed at [place] [address] Performed By: #### A CBC, CHEM7F, BHCG2 ####[place] [address] CBCon 10-15-2017 ABSOLUTE BAS 0.1 X10 Normal [facility] Comment on above: Result Comment: Test ing performed at [place] [address] Performed By: #### A CBC, CHEM7F, BHCG2 ####[place] [address] ABSOLUTE EOS 0.20 X10 Normal [facility] Comment on above: Performed By: #### A CBC, CHEM7F, BHCG2 ####[place] [address] ABSOLUTE NEUTROPHIL COUNT 7.6 x10 High 1.0-7.0 [facility] Comment on above: Performed By: #### A CBC, CHEM7F, BHCG2 ####Testing performed at [address] [address] Basophils/100 WBC Auto (Bld) 0.8 % Normal 0.0-2.0 [facility] Comment on above: Performed By: #### A CBC, CHEM7F, BHCG2 ####Testing performed at [address] [address] DTYPE AUTO DIFF Normal [facility] Comment on above: Performed By: #### A CBC, CHEM7F, BHCG2 ####Testing performed at [address] [address] Eosinophils/100 WBC Auto (Bld) 2.0 % Normal 0.0-11.0 [facility] Comment on above: Performed By: #### A CBC, CHEM7F, BHCG2 ####Testing performed at [address] [address] Lymphocytes Auto #/vol (Bld) 1.40 X10 Normal [facility] Comment on above: Performed By: #### A CBC, CHEM7F, BHCG2 ####Testing performed at [address] [address] Lymphocytes/100 WBC Auto (Bld) 14.3 % Low 20.0-55.0 [facility] Comment on above: Performed By: #### A CBC, CHEM7F, BHCG2 ####Testing performed at [address] [address] Monocytes Auto #/vol (Bld) 0.6 X10 Normal [facility] Comment on above: Performed By: #### A CBC, CHEM7F, BHCG2 ####Testing performed at [address] [address] Monocytes/100 WBC Auto (Bld) 5.9 % Normal 0.0-10.0 [facility] Comment on above: Performed By: #### A CBC, CHEM7F, BHCG2 ####[place] [address] Neutrophils/100 WBC Auto (Bld) 77.0 % High 37.0-75.0 [facility] Comment on above: Performed By: #### A CBC, CHEM7F, BHCG2 ####[place] [address] Erythrocyte distribution width Auto Ratio (RBC) 15.1 % High 11.5-14.5 [facility] Comment on above: Performed By: #### A CBC, CHEM7F, BHCG2 ####[place] [address] Hematocrit Auto Volume Fraction (Bld) 36.8 % Normal 36.0-48.0 [facility] Comment on above: Performed By: #### A CBC, CHEM7F, BHCG2 ####[place] [address] Hemoglobin mass conc (Bld) 12.3 g/dL Normal 12.0-16.0 [facility] Comment on above: Performed By: #### A CBC, CHEM7F, BHCG2 ####[place] [address] MCH Auto Entitic mass (RBC) 27.2 pg Normal 26.0-35.0 [facility] Comment on above: Performed By: #### A CBC, CHEM7F, BHCG2 ####[place] [address] MCHC Auto mass conc (RBC) 33.3 g/dL Normal 27.0-37.0 [facility] Comment on above: Performed By: #### A CBC, CHEM7F, BHCG2 ####[place] [address] MCV Auto Entitic volume (RBC) 81.7 fL Normal 80.0-100.0 [facility] Comment on above: Performed By: #### A CBC, CHEM7F, BHCG2 ####[place] [address] Platelet mean volume Auto Entitic volume (Bld) 8.4 fL Normal 7.4-11.0 [facility] Comment on above: Performed By: #### A CBC, CHEM7F, BHCG2 ####[place] [address] Platelets Auto #/vol (Bld) 237 /cmm Normal 130.0-400.0 [facility] Comment on above: Performed By: #### A CBC, CHEM7F, BHCG2 ####[place] [address] RBC Auto #/vol (Bld) 4.51 /cmm Normal 4.0-5.4 [facility] Comment on above: Performed By: #### A CBC, CHEM7F, BHCG2 ####[place] [address] WBC Auto #/vol (Bld) 9.9 /cmm Normal 3.6-11.0 [facility] Comment on above: Performed By: #### A CBC, CHEM7F, BHCG2 ####[place] [address] CHEM 7 FASTINGon 10-15-2017 Chloride molar conc 106 mmol/L Normal 98-107 [facility] Comment on above: Performed By: #### A CBC, CHEM7F, BHCG2 ####[place] [address] CO2 molar conc 21 mmol/L Low 22-30 [facility] Comment on above: Performed By: #### A CBC, CHEM7F, BHCG2 ####[place] [address] Creatinine mass conc 0.7 mg/dL Normal 0.7-1.2 [facility] Comment on above: Performed By: #### A CBC, CHEM7F, BHCG2 ####[place] [address] EST. GFR, >60 Normal [facility] Comment on above: Performed By: #### A CBC, CHEM7F, BHCG2 ####[place] [address] EST. GFR,Non >60 Normal [facility] Comment on above: Performed By: #### A CBC, CHEM7F, BHCG2 ####[place] [address] GFR/1.73 sq M predicted among non-blacks MDRD vol rate/area (S/P/Bld) Average GFR for 20-29 years old = 116. Normal [facility] Comment on above: Result Comment: Repair Supervisor frantz Kidney disease, GFR = <60.Kidney failure, GFR = <15.The GFR estimate is not adjusted for extreme body surface area or acute process, nor has it been validated for women or ethnic groups other than and .Testing performed at [place] [address] Performed By: #### A CBC, CHEM7F, BHCG2 ####[place] [address] Glucose mass conc 90 mg/dL Normal 70-100 [facility] Comment on above: Result Comment: NORM AL <100 mg/dLPREDIABETES 101-126 mg/dLDIABETES 126 mg/dL or higher Performed By: #### A CBC, CHEM7F, BHCG2 ####[place] [address] Potassium molar conc 3.4 mmol/L Low 3.5-5.1 [facility] Comment on above: Performed By: #### A CBC, CHEM7F, BHCG2 ####[place] [address] Sodium molar conc 137 mmol/L Normal 137-145 [facility] Comment on above: Performed By: #### A CBC, CHEM7F, BHCG2 ####[place] [address] Urea nitrogen mass conc (Bld) 4 mg/dL Low 7-20 [facility] Comment on above: Performed By: #### A CBC, CHEM7F, BHCG2 ####[place] [address] GENITAL CULTUREon 10-15-2017 GENITAL CULTURE SPECIMEN DESCRIPTION [...] PRESENT * Result Note: Testing performed at [place] [address] *REPORT STATUS 10/17/2017 * Result Note: FINAL * Normal [facility] Comment on above: Performed By: #### G ENC ####[place] [address] NATA PREPARATIONon 10-15-2017 NATA PREPARATION SPECIMEN DESCRIPTION VAGINAL SPECIMENKOH PREP NO YEAST SEEN * Result Note: VERIFIED BY DUP TESTING * * Result Note: Testing performed at [place] [address] *REPORT STATUS 10/15/2017 * Result Note: FINAL * Normal [facility] Comment on above: Performed By: #### K [place] ####[place] [address] US OB TRANSVAGINAL/CERVICAL LENGTHon 10-15-2017 US OB [...] weeks gestation for evaluation of anatomy. Normal [facility] WET PREPon 10-15-2017 WET PREP SPECIMEN DESCRIPTION VAGINAL SPECIMENWET PREP NO TRICHOMONAS SEEN * Result Note: NO CLUE CELLS SEEN * * Result Note: VERIFIED BY DUP TESTING * * Result Note: Testing performed at [place] [address] *REPORT STATUS 10/15/2017 * Result Note: FINAL * Normal [facility] Comment on above: Performed By: #### W ETP ####[place] [address] CMP FASTINGon 09-03-2017 A:G RATIO 1.1 RATIO Low 1.3-2.2 [facility] Comment on above: Performed By: #### C MPF ####[place] [address] Albumin mass conc 3.9 G/dl Normal 3.5-5.0 [facility] Comment on above: Performed By: #### C MPF ####[place] [address] Creatinine mass conc 0.8 mg/dL Normal 0.52-1.04 [facility] Comment on above: Performed By: #### C MPF ####Testing performed at [place] [id number] EST. GFR, >60 Normal [facility] Comment on above: Performed By: #### C MPF ####Testing performed at [place] [id number] EST. GFR,Non >60 Normal [facility] Comment on above: Performed By: #### C MPF ####Testing performed at [address] [place] [address] GFR/1.73 sq M predicted among non-blacks MDRD vol rate/area (S/P/Bld) Average GFR for 20-29 years old = 116. Normal [facility] Comment on above: Result Comment: Repair Supervisor frantz Kidney disease, GFR = <60.Kidney failure, GFR = <15.The GFR estimate is not adjusted for extreme body surface area or acute process, nor has it been validated for women or ethnic groups other than and . Performed By: #### C MPF ####Testing performed at [place] [id number] Urea nitrogen mass conc (Bld) 6 mg/dL Low 7-20 [facility] Comment on above: Performed By: #### C MPF ####Testing performed at [address] [address] ALP enzyme act/vol 75 U/L Normal 38-126 [facility] Comment on above: Performed By: #### C MPF ####Testing performed at [address] [address] ALT enzyme act/vol 18 U/L Normal 14-54 [facility] Comment on above: Performed By: #### C MPF ####Testing performed at [address] [address] AST enzyme act/vol 23 U/L Normal 15-41 [facility] Comment on above: Performed By: #### C MPF ####Testing performed at [address] [address] Bilirubin mass conc 1.2 mg/dL Normal 0.2-1.2 [facility] Comment on above: Performed By: #### C MPF ####Testing performed at [address] [address] Protein mass conc 7.4 g/dL Normal 6.3-8.2 [facility] Comment on above: Performed By: #### C MPF ####Testing performed at [address] [address] Calcium mass conc 8.9 mg/dL Normal 8.4-10.2 [facility] Comment on above: Performed By: #### C MPF ####Testing performed at [address] [address] Chloride molar conc 108 mmol/L High 98-107 [facility] Comment on above: Performed By: #### C MPF ####Testing performed at [address] [address] CO2 molar conc 19 mmol/L Critically low 22-30 [facility] Comment on above: Result Comment: Resu lt called to read back by: CHUCK FLETCHER 09/03/2017 @ 18:34 by DDD Performed By: #### C MPF ####Testing performed at [place] [id number] Glucose mass conc 96 mg/dL Normal 70-100 [facility] Comment on above: Result Comment: NORM AL <100 mg/dLPREDIABETES 101-126 mg/dLDIABETES 126 mg/dL or higher Performed By: #### C MPF ####[place] [address] Potassium molar conc 3.8 mmol/L Normal 3.5-5.1 [facility] Comment on above: Performed By: #### C MPF ####Testing performed at [place] [id number] Sodium molar conc 138 mmol/L Normal 137-145 [facility] Comment on above: Performed By: #### C MPF ####Testing performed at [place] [id number] CT ABDOMEN/PELVIS WITHOUT CO NTRASTon 09-03-2017 CT ABDOMEN/PELVIS WITHOUT CONTRAST EXAM TYPE: CT ABDOMEN/PELVIS WITHOUT CONTRASTEXAM DATE AND TIME: 09/03/2017 6:23 PM.INDICATION: 26 [id number] with bleeding. History of Crohn's disease. Prior [...] is predominantly decompressed. 3. Normal appendix. Normal [facility] ED NOTEon 09-03-2017 [facility] NOTES Normal [facility] NOTES Normal [facility] NOTES Normal [facility] NOTES Normal [facility] ED PROVIDERon 09-03-2017 [facility] HIM CAC NOTES Normal [facility] NOTES Normal [facility] URINE HCG QUALon 09-03-2017 HCG.beta subunit ( test) Ql (U) Negative Normal NEGATIVE [facility] Comment on above: Performed By: #### U HCGT, UMAC ####[place] [address] URINE MACROSCOPICon 09-03-20 17 Bilirubin Ql (U) Negative Normal NEGATIVE [facility] Comment on above: Performed By: #### U HCGT, UMAC ####Testing performed at [address] [address] Clarity Nom (U) CLEAR Abnormal CLEAR [facility] Comment on above: Performed By: #### U HCGT, UMAC ####Testing performed at [address] [address] Color Nom (U) YELLOW Normal YELLOW [facility] Comment on above: Performed By: #### U HCGT, UMAC ####Testing performed at [place] [id number] Glucose Ql (U) Negative Normal NEGATIVE [facility] Comment on above: Performed By: #### U HCGT, UMAC ####[place] [address] pH Test strip (U) 6.0 [pH] Normal 5.0-7.0 [facility] Comment on above: Performed By: #### U HCGT, UMAC ####Testing performed at [address] [place] [address] URINE HEMOGLOBIN Negative Normal NEGATIVE [facility] Comment on above: Performed By: #### U HCGT, UMAC ####Testing performed at [address] [place] [address] URINE KETONE Negative Normal NEGATIVE [facility] Comment on above: Performed By: #### U HCGT, UMAC ####Testing performed at [address] [place] [address] URINE LEUKOTEST Negative Normal NEGATIVE [facility] Comment on above: Performed By: #### U HCGT, UMAC ####Testing performed at [address] [place] [address] URINE NITRATES Negative Normal NEGATIVE [facility] Comment on above: Performed By: #### U HCGT, UMAC ####Testing performed at [address] [address] URINE SPEC GRAVITY 1.015 Normal 1.010-1.025 [facility] Comment on above: Performed By: #### U HCGT, UMAC ####Testing performed at [address] [address] URINE TOTAL PROTEIN Negative Normal NEGATIVE [facility] Comment on above: Performed By: #### U HCGT, UMAC ####Testing performed at [address] [address] Urobilinogen Test strip Qn (U) 0.2 mg/dl Normal 0.2-1.0 [facility] Comment on above: Performed By: #### U HCGT, UMAC ####Testing performed at [address] [address] Comp Metabolic Panelon 08-28 Alanine aminotransferase (ALT) 29 U/L Normal 12-78 [facility] Comment on above: Performed By: #### H SHARMILA CMP3 ####[place] [address] [facility] [place] [address] Albumin 3.8 g/dL Normal 3.4-5.0 [facility] Comment on above: Performed By: #### H EMDF, CMP3 ####[place] [address] [place] [address] Alkaline phosphatase (ALP) 107 U/L Normal 45-117 [facility] Comment on above: Performed By: #### H EMDF, CMP3 ####[place] [address] [place] [address] Anion gap 10 mmol/L Normal [facility] Comment on above: Performed By: #### H EMDF, CMP3 ####[place] Uxmjog[address] [place] [address] Aspartate aminotransferase (AST) 16 U/L Normal 15-37 [facility] Comment on above: Performed By: #### H EMDF, CMP3 ####[place] Wvb[address] [place] [address] Bilirubin (total) 1.0 mg/dL Normal 0.2-1.0 [facility] Comment on above: Performed By: #### H EMDF, CMP3 ####[place] S[address] [place] [address] Calcium 9.1 mg/dL Normal 8.2-10.1 [facility] Comment on above: Performed By: #### H EMDF, CMP3 ####[place] [address] [place] [address] Chloride 102 mmol/L Normal 98-109 [facility] Comment on above: Performed By: #### H EMDF, CMP3 ####[place] A[address] [place] [address] CO2 27 mmol/L Normal 21-32 [facility] Comment on above: Performed By: #### H EMDF, CMP3 ####[place] Mbep[address] [place] [address] Creatinine 0.94 mg/dL Normal 0.55-1.40 [facility] Comment on above: Performed By: #### H EMDF, CMP3 ####[place] In[address] [place] [address] eGFR (black) mL/min/{1.73_m2} Normal >60 [facility] Comment on above: Performed By: #### H EMDF, CMP3 ####[place] Se[address] [place] [address] eGFR (non-black) mL/min/{1.73_m2} Normal >60 [facility] Comment on above: Result Comment: Sour ce- MDRD equation with creatinine calibration to IDMS(NKDEP)eGFR not recommended for drug dose adjustment Performed By: #### H GURJIT DOLL3 ####[address] [place] [address] Glucose mass conc 86 mg/dL Normal 70-100 [facility] Comment on above: Result Comment: . Performed By: #### H GURJIT DOLL3 ####[address] BessDff[address] [place] [address] Potassium molar conc 3.4 mmol/L Low 3.5-5.1 [facility] Comment on above: Performed By: #### H SHARMILA CMP3 ####[address] BessLyzu[address] [place] [address] Protein 8.2 g/dL Normal 6.4-8.2 [facility] Comment on above: Performed By: #### H SHARMILA CMP3 ####[facility] ServicesFjcupa[address] [place] [address] Sodium 139 mmol/L Normal 135-145 [facility] Comment on above: Performed By: #### [place] DOLL CMP3 ####[address] BessY[address] [place] [address] Urea nitrogen 9 mg/dL Normal 7-25 [facility] Comment on above: Performed By: #### H SHARMILA CMP3 ####[address] Eqonnt[address] [place] [address] Hemogram w/ Autodiffon 08-28 Abs Baso Cnt 0.1 10*3/uL Normal 0.0-0.2 [facility] Comment on above: Performed By: #### H SHARMILA CMP3 ####[facility] ServicesVpmfyh9724 [place] [address] Basophils/100 WBC Auto (Bld) 0.6 % Normal [facility] Comment on above: Performed By: #### H SHARMILA CMP3 ####[address] C[address] [place] [address] Eosinophils 0.3 10*3/uL Normal 0.0-0.5 [facility] Comment on above: Performed By: #### H GURJIT DOLL3 ####[place] W[address] [place] [address] Eosinophils/100 leukocytes 2.9 % Normal [facility] Comment on above: Performed By: #### H EMDBrooke, CMP3 ####[address] Yangjk[address] [place] [address] Erythrocyte distribution width Auto Ratio (RBC) 13.7 % Normal 11.5-14.5 [facility] Comment on above: Performed By: #### H EMDBrooke, CMP3 ####[place] [address] [place] [address] Erythrocytes (RBC) 5.35 10*6/uL High 3.80-5.20 [facility] Comment on above: Performed By: #### H EMDBrooke CMP3 ####[address] R[address]ey[address] [place] [address] Granulocytes/100 WBC (Bld) 64.4 % Normal [facility] Comment on above: Performed By: #### H SHARMILA CMP3 ####[place] Lx[address] [place] [address] Hematocrit (HCT) 42.8 % Normal 35.0-47.0 [facility] Comment on above: Performed By: #### H SHARMILA CMP3 ####[place] [address] [place] [address] Hemoglobin mass conc (Bld) 13.9 g/dL Normal 11.7-16.0 [facility] Comment on above: Performed By: #### H SHARMILA CMP3 ####[place] [address] [place] [address] Lymphocytes 2.6 10*3/uL Normal 1.0-4.3 [facility] Comment on above: Performed By: #### H EMDBrooke CMP3 ####[place]o Hajkxx[address] [place] [address] Lymphocytes/100 leukocytes 25.5 % Normal [facility] Comment on above: Performed By: #### H EMDF, CMP3 ####[place]o Hrlnbx[address] [place] [address] MCH 26.0 pg Normal 26.0-34.0 [facility] Comment on above: Performed By: #### H EMDBrooke CMP3 ####[place] Jwfq[address] [place] [address] MCHC mass conc (RBC) 32.5 % Normal 32.0-36.0 [facility] Comment on above: Performed By: #### H EMDF, CMP3 ####[place] Efxfbl[address] [place] [address] MCV 79.9 fL Normal 79.0-98.0 [facility] Comment on above: Performed By: #### H EMDF, CMP3 ####[place] Yr[address]us[address] [place] [address] Monocytes 0.7 10*3/uL Normal 0.0-0.8 [facility] Comment on above: Performed By: #### H EMDF, CMP3 ####[place] Pfgcqx[address] [place] [address] Monocytes/100 leukocytes 6.6 % Normal [facility] Comment on above: Performed By: #### H EMDF, CMP3 ####[place] T[address] [place] [address] Neutrophils 6.5 10*3/uL Normal 1.8-7.0 [facility] Comment on above: Performed By: #### H EMDF, CMP3 ####[place] [address] [place] [address] Platelet mean volume (PMV) 8.6 fL Normal 7.4-10.4 [facility] Comment on above: Performed By: #### H EMDF, CMP3 ####[place] X[address] [place] [address] Platelets 279 10*3/uL Normal 140-440 [facility] Comment on above: Performed By: #### H EMDF, CMP3 ####[place] Uppsmz[address] [place] [address] WBC (Leukocytes) 10.2 10*3/uL Normal 3.6-10.7 [facility] Comment on above: Performed By: #### H EMDF, CMP3 ####Luog Qystac[address] [place] [address] Urinalysis,Macroon 10-24-201 7 Bilirubin (direct) Negative Normal Negative [facility] Comment on above: Performed By: #### U AMAC, UAMIC ####[place]o [address]jvcol[address] [place] [address] Ketone,Urine Negative Normal Negative [facility] Comment on above: Performed By: #### U AMAC, UAMIC ####[place] Fytcrf[address] [place] [address] Occult Blood,Ur Negative Normal Negative [facility] Comment on above: Performed By: #### U AMAC, UAMIC ####[place]o Wufkfo[address] [place] [address] Specific [place],Urine 1.005 Normal 1.005-1.030 [facility] Comment on above: Performed By: #### U AMAC, UAMIC ####[place] Oxbdrz[address] [place] [address] Total Protein,Urine Negative Normal Negative [facility] Comment on above: Performed By: #### U AMAC, UAMIC ####[place]o Tkekxt[address] [place] [address] Urine, appearance Clear Normal Clear [facility] Comment on above: Performed By: #### U AMAC, UAMIC ####Lugo Jcgxeq[address] [place] [address] Urine, color Yellow Normal Lt. Yellow [facility] Comment on above: Performed By: #### U AMAC, UAMIC ####Lguo Dptrqv[address] [place] [address] Urine, glucose presence NEG (Normal) Normal Negative [facility] Comment on above: Performed By: #### U AMAC, UAMIC ####Lugo Lmsym[address] [place] [address] Urine, nitrite presence Negative Normal Negative [facility] Comment on above: Performed By: #### U AMAC, UAMIC ####[place]o Nenstq[address] [place] [address] Urine, pH 7.0 [pH] Normal 5.0-8.0 [facility] Comment on above: Performed By: #### U AMAC, UAMIC ####Lugo Llbfkg[address] [place] [address] Urine, urobilinogen Normal (0.2) Normal 0-1 [facility] Comment on above: Performed By: #### U AMAC, UAMIC ####Lugo Oimohn[address] [place] [address] WBC (Leukocytes) Trace Normal Negative [facility] Comment on above: Performed By: #### U AMAC, UAMIC ####Lugo Swyr[address] [place] [address] Urinalysis,Microscopicon Urine, bacteria in sediment Many (51-100) Normal Negative [facility] Comment on above: Performed By: #### U AMAC, UAMIC ####Lugo Ynflvi[address] [place] [address] Urine, epithelial cells in sediment 6-10 Normal 3-5 [facility] Comment on above: Performed By: #### U AMAC, UAMIC ####Lugo Psmrrk[address] [place] [address] Urine, erythrocytes in sediment by area 0-2 Normal 0-2 [facility] Comment on above: Performed By: #### U AMAC, UAMIC ####[id number] [place] [address] Urine, leukocytes in sedmiment 0-2 Normal 0-5 [facility] Comment on above: Performed By: #### U AMAC, UAMIC ####[id number] [place] [address] Influenza virus A and B and SARS-CoV-2 (COVID-19) Ag panel - Upper respiratory specim SARS-CoV-2 (COVID-19) RNA JYOTI+probe Ql (Resp) [facility] Work Phone: Vital Signs Date Time Vital Sign Value Performing Clinician Facility 05-13-2025 12:46-0400 Body height 162.6 cm Zoë Santana MD Work Phone: [facility] 05-13-2025 12:46-0400 Body mass index (BMI) [Ratio] 52.7 kg/m2 Zoë Santana MD Work Phone: [facility] 05-13-2025 12:46-0400 Body weight 139.25 kg Zoë Santana MD Work Phone: [facility] 05-13-2025 12:46-0400 Diastolic blood pressure 76 mm[Hg] Zoë Santana MD Work Phone: [facility] 05-13-2025 12:46-0400 Heart rate 62 /min Zoë Santana MD Work Phone: [facility] 05-13-2025 12:46-0400 SaO2% (BldA) [Mass fraction] 96 % Zoë Santana MD Work Phone: [facility] 05-13-2025 12:46-0400 Systolic blood pressure 128 mm[Hg] Zoë Santana MD Work Phone: [facility] 03-10-2025 12:49-0400 Body mass index (BMI) [Ratio] 52.03 kg/m2 Carline Pollack MD Work Phone: [facility] 03-10-2025 12:49-0400 Body weight 137.49 kg Carline Pollack MD Work Phone: [facility] 03-10-2025 12:49-0400 Diastolic blood pressure 77 mm[Hg] Carline Pollack MD Work Phone: [facility] 03-10-2025 12:49-0400 Heart rate 110 /min Carline Pollack MD Work Phone: [facility] 03-10-2025 12:49-0400 Systolic blood pressure 128 mm[Hg] Carline Pollack MD Work Phone: [facility] 03-03-2025 11:38-0400 Body height 162.6 cm Zoë Santana MD Work Phone: [facility] 03-03-2025 11:38-0400 Body mass index (BMI) [Ratio] 52.18 kg/m2 Zoë Santana MD Work Phone: [facility] 03-03-2025 11:38-0400 Body weight 137.89 kg Zoë Santana MD Work Phone: [facility] 03-03-2025 11:38-0400 Diastolic blood pressure 83 mm[Hg] Zoë Santana MD Work Phone: [facility] 03-03-2025 11:38-0400 Heart rate 93 /min Zoë Santana MD Work Phone: [facility] 03-03-2025 11:38-0400 SaO2% (BldA) [Mass fraction] 96 % Zoë Santana MD Work Phone: [facility] 03-03-2025 11:38-0400 Systolic blood pressure 142 mm[Hg] Zoë Santana MD Work Phone: [facility] 03-01-2025 17:52-0400 Body temperature 97.9 [degF] Jose Guadalupe Mills MD Work Phone: [facility] 03-01-2025 17:52-0400 Diastolic blood pressure 82 mm[Hg] Jose Guadalupe Mills MD Work Phone: [facility] 03-01-2025 17:52-0400 Heart rate 102 /min Jose Guadalupe Mills MD Work Phone: [facility] 03-01-2025 17:52-0400 Respiratory rate 16 /min Jose Guadalupe Mills MD Work Phone: [facility] 03-01-2025 17:52-0400 SaO2% (BldA) [Mass fraction] 100 % Jose Guadalupe Mills MD Work Phone: [facility] 03-01-2025 17:52-0400 Systolic blood pressure 131 mm[Hg] Jose Guadalupe Mills MD Work Phone: [facility] 03-01-2025 16:42-0400 Body height 162.6 cm Jose Guadalupe Mills MD Work Phone: [facility] 03-01-2025 16:42-0400 Body mass index (BMI) [Ratio] 52.98 kg/m2 Jose Guadalupe Mills MD Work Phone: [facility] 03-01-2025 16:42-0400 Body weight 140 kg Jose Guadalupe Mills MD Work Phone: [facility] 02-16-2025 14:11-0400 Body temperature 98.4 [degF] Kelli Matthews MD Work Phone: [facility] 02-16-2025 14:11-0400 Diastolic blood pressure 79 mm[Hg] Kelli Matthews MD Work Phone: [facility] 02-16-2025 14:11-0400 Heart rate 96 /min Kelli Matthews MD Work Phone: [facility] 02-16-2025 14:11-0400 Respiratory rate 20 /min Kelli Matthews MD Work Phone: [facility] 02-16-2025 14:11-0400 SaO2% (BldA) [Mass fraction] 99 % Kelli Matthews MD Work Phone: [facility] 02-16-2025 14:11-0400 Systolic blood pressure 146 mm[Hg] Kelli Matthews MD Work Phone: [facility] 02-16-2025 14:09-0400 Body height 163.8 cm Kelli Matthews MD Work Phone: [facility] 02-16-2025 14:09-0400 Body mass index (BMI) [Ratio] 50.67 kg/m2 Kelli Matthews MD Work Phone: [facility] 02-16-2025 14:09-0400 Body weight 136 kg Kelli Matthews MD Work Phone: [facility] 02-15-2025 10:20-0400 Body temperature 98.2 [degF] Earl Colorado MD Work Phone: [facility] 02-15-2025 10:20-0400 Diastolic blood pressure 71 mm[Hg] Earl Colorado MD Work Phone: [facility] 02-15-2025 10:20-0400 Heart rate 88 /min Earl Colorado MD Work Phone: [facility] 02-15-2025 10:20-0400 Respiratory rate 20 /min Earl Colorado MD Work Phone: [facility] 02-15-2025 10:20-0400 SaO2% (BldA) [Mass fraction] 99 % Earl Colorado MD Work Phone: [facility] 02-15-2025 10:20-0400 Systolic blood pressure 130 mm[Hg] Earl Colorado MD Work Phone: [facility] 02-09-2025 11:31-0400 Body mass index (BMI) [Ratio] 52.53 kg/m2 Earl Colorado MD Work Phone: [facility] 02-09-2025 11:31-0400 Body weight 141 kg Earl Colorado MD Work Phone: [facility] 02-08-2025 19:26-0400 Body temperature 37 Earl Colorado MD Work Phone: [facility] 02-08-2025 19:10-0400 Body temperature 37.0 degrees Celsius EARL [place]O [facility] Comment on above: Performed By: #### [id number] #### QUIN Simon ([id number]) [facility] ([facility]) [address] [place] [address] 02-08-2025 18:10-0400 Body height 163.8 cm Earl Colorado MD Work Phone: [facility] 01-15-2025 06:35-0400 Body temperature 97.9 [degF] Earl Colorado MD Work Phone: [facility] 01-15-2025 06:35-0400 Diastolic blood pressure 55 mm[Hg] Earl Colorado MD Work Phone: [facility] 01-15-2025 06:35-0400 Heart rate 62 /min Earl Colorado MD Work Phone: [facility] 01-15-2025 06:35-0400 Respiratory rate 16 /min Earl Colorado MD Work Phone: [facility] 01-15-2025 06:35-0400 SaO2% (BldA) [Mass fraction] 99 % Earl Colorado MD Work Phone: [facility] 01-15-2025 06:35-0400 Systolic blood pressure 115 mm[Hg] Earl Colorado MD Work Phone: [facility] 01-15-2025 02:07-0400 Body height 162.6 cm Earl Colorado MD Work Phone: [facility] 01-15-2025 02:07-0400 Body mass index (BMI) [Ratio] 50.71 kg/m2 Earl Colorado MD Work Phone: [facility] 01-15-2025 02:07-0400 Body weight 134 kg Earl Colorado MD Work Phone: [facility] 01-08-2025 19:59-0500 Body temperature 97.9 [degF] Earl Colorado MD Work Phone: [facility] 01-08-2025 19:59-0500 Diastolic blood pressure 81 mm[Hg] Earl Colorado MD Work Phone: [facility] 01-08-2025 19:59-0500 Heart rate 88 /min Earl Colorado MD Work Phone: [facility] 01-08-2025 19:59-0500 Respiratory rate 17 /min Earl Colorado MD Work Phone: [facility] 01-08-2025 19:59-0500 SaO2% (BldA) [Mass fraction] 98 % Earl Colorado MD Work Phone: [facility] 01-08-2025 19:59-0500 Systolic blood pressure 133 mm[Hg] Earl Colorado MD Work Phone: [facility] 01-08-2025 15:49-0500 Body height 162.6 cm Earl Colorado MD Work Phone: [facility] 01-08-2025 15:49-0500 Body mass index (BMI) [Ratio] 50.37 kg/m2 Earl Colorado MD Work Phone: [facility] 01-08-2025 15:49-0500 Body weight 133.1 kg Earl Colorado MD Work Phone: [facility] 12-25-2024 11:19-0500 Body temperature 98.1 [degF] Daisy Crews MD Work Phone: [facility] 12-25-2024 11:19-0500 Diastolic blood pressure 84 mm[Hg] Daisy Crews MD Work Phone: [facility] 12-25-2024 11:19-0500 Heart rate 81 /min Daisy Crews MD Work Phone: [facility] 12-25-2024 11:19-0500 Respiratory rate 19 /min Daisy Crews MD Work Phone: [facility] 12-25-2024 11:19-0500 SaO2% (BldA) [Mass fraction] 100 % Daisy Crews MD Work Phone: [facility] 12-25-2024 11:19-0500 Systolic blood pressure 137 mm[Hg] Daisy Crews MD Work Phone: [facility] 12-23-2024 16:45-0500 Body height 163.8 cm Daisy Crews MD Work Phone: [facility] 12-23-2024 16:45-0500 Body mass index (BMI) [Ratio] 48.32 kg/m2 Daisy Crews MD Work Phone: [facility] 12-23-2024 16:45-0500 Body weight 129.7 kg Daisy Crews MD Work Phone: [facility] 11-25-2024 13:09-0500 Body temperature 97.81 [degF] Sugey Pride MD Work Phone: [facility] 11-25-2024 13:09-0500 Body weight 122.02 kg Sugey Pride MD Work Phone: [facility] 11-25-2024 13:09-0500 Diastolic blood pressure 74 mm[Hg] Sugey Pride MD Work Phone: [facility] 11-25-2024 13:09-0500 Heart rate 90 /min Sugey Pride MD Work Phone: [facility] 11-25-2024 13:09-0500 Systolic blood pressure 116 mm[Hg] Sugey Pride MD Work Phone: [facility] 02-22-2024 17:52-0400 Body temperature 97.3 [degF] [facility] 02-22-2024 17:52-0400 Diastolic blood pressure 96 mm[Hg] [facility] 02-22-2024 17:52-0400 Heart rate 79 /min [facility] 02-22-2024 17:52-0400 Respiratory rate 16 /min [facility] 02-22-2024 17:52-0400 SaO2% (BldA) [Mass fraction] 97 % [facility] 02-22-2024 17:52-0400 Systolic blood pressure 121 mm[Hg] [facility] 02-22-2024 14:10-0400 Body height 163.83 cm [facility] 02-22-2024 14:10-0400 Body mass index (BMI) [Ratio] 42.8 kg/m2 [facility] 02-22-2024 14:10-0400 Body weight 114.94 kg [facility] 12-05-2023 11:46-0500 Diastolic blood pressure 72 mm[Hg] [facility] 12-05-2023 11:46-0500 Heart rate 84 /min [facility] 12-05-2023 11:46-0500 Respiratory rate 16 /min [facility] 12-05-2023 11:46-0500 SaO2% (BldA) [Mass fraction] 98 % [facility] 12-05-2023 11:46-0500 Systolic blood pressure 138 mm[Hg] [facility] 12-05-2023 07:38-0500 Body height 162.99 cm [facility] 12-05-2023 07:38-0500 Body mass index (BMI) [Ratio] 46.8 kg/m2 [facility] 12-05-2023 07:38-0500 Body temperature 97.8 [degF] [facility] 12-05-2023 07:38-0500 Body weight 124.51 kg [facility] 12-04-2023 16:09-0500 Body height 162.56 cm [facility] 12-04-2023 16:09-0500 Body mass index (BMI) [Ratio] 47.1 kg/m2 [facility] 12-04-2023 16:09-0500 Body temperature 98.1 [degF] [facility] 12-04-2023 16:09-0500 Body weight 124.51 kg [facility] 12-04-2023 16:09-0500 Diastolic blood pressure 85 mm[Hg] [facility] 12-04-2023 16:09-0500 Heart rate 68 /min [facility] 12-04-2023 16:09-0500 Respiratory rate 16 /min [facility] 12-04-2023 16:09-0500 SaO2% (BldA) [Mass fraction] 99 % [facility] 12-04-2023 16:09-0500 Systolic blood pressure 143 mm[Hg] [facility] 11-17-2023 04:51-0500 Diastolic blood pressure 78 mm[Hg] [facility] 11-17-2023 04:51-0500 Systolic blood pressure 113 mm[Hg] [facility] 11-17-2023 03:51-0500 SaO2% (BldA) [Mass fraction] 98 % [facility] 11-17-2023 02:59-0500 Body temperature 97.9 [degF] [facility] 11-17-2023 02:59-0500 Heart rate 77 /min [facility] 11-17-2023 02:59-0500 Respiratory rate 16 /min [facility] 11-17-2023 02:54-0500 Body height 162.56 cm [facility] 11-17-2023 02:54-0500 Body mass index (BMI) [Ratio] 50.1 kg/m2 [facility] 11-17-2023 02:54-0500 Body weight 132.5 kg [facility] 10-25-2023 14:57-0500 Body height 162.56 cm [facility] 10-25-2023 14:57-0500 Body mass index (BMI) [Ratio] 50 kg/m2 [facility] 10-25-2023 14:57-0500 Body temperature 97.7 [degF] [facility] 10-25-2023 14:57-0500 Body weight 132.16 kg [facility] 10-25-2023 14:57-0500 Diastolic blood pressure 85 mm[Hg] [facility] 10-25-2023 14:57-0500 Heart rate 81 /min [facility] 10-25-2023 14:57-0500 Respiratory rate 16 /min [facility] 10-25-2023 14:57-0500 SaO2% (BldA) [Mass fraction] 100 % [facility] 10-25-2023 14:57-0500 Systolic blood pressure 147 mm[Hg] [facility] 09-05-2023 07:00-0400 Diastolic blood pressure 88 mm[Hg] [facility] 09-05-2023 07:00-0400 Systolic blood pressure 145 mm[Hg] [facility] 09-05-2023 05:50-0400 Respiratory rate 18 /min [facility] 09-05-2023 05:50-0400 SaO2% (BldA) [Mass fraction] 98 % [facility] 09-05-2023 03:56-0400 Body mass index (BMI) [Ratio] 49.7 kg/m2 [facility] 09-05-2023 03:56-0400 Body temperature 98.1 [degF] [facility] 09-05-2023 03:56-0400 Body weight 131.4 kg [facility] 09-05-2023 03:56-0400 Heart rate 80 /min [facility] 06-05-2023 07:10-0400 Diastolic blood pressure 90 mm[Hg] [facility] 06-05-2023 07:10-0400 Heart rate 50 /min [facility] 06-05-2023 07:10-0400 Respiratory rate 16 /min [facility] 06-05-2023 07:10-0400 SaO2% (BldA) [Mass fraction] 100 % [facility] 06-05-2023 07:10-0400 Systolic blood pressure 150 mm[Hg] [facility] 06-05-2023 04:33-0400 Body height 162.56 cm [facility] 06-05-2023 04:33-0400 Body mass index (BMI) [Ratio] 46.3 kg/m2 [facility] 06-05-2023 04:33-0400 Body temperature 98.9 [degF] [facility] 06-05-2023 04:33-0400 Body weight 122.46 kg [facility] 05-17-2023 16:27-0400 Respiratory rate 18 /min [facility] 05-17-2023 15:25-0400 Body mass index (BMI) [Ratio] 45.8 kg/m2 [facility] 05-17-2023 15:25-0400 Body temperature 98.4 [degF] [facility] 05-17-2023 15:25-0400 Body weight 120.97 kg [facility] 05-17-2023 15:25-0400 Diastolic blood pressure 96 mm[Hg] [facility] 05-17-2023 15:25-0400 Heart rate 83 /min [facility] 05-17-2023 15:25-0400 SaO2% (BldA) [Mass fraction] 100 % [facility] 05-17-2023 15:25-0400 Systolic blood pressure 134 mm[Hg] [facility] 01-21-2023 17:09-0400 Respiratory rate 18 /min No Primary Care Physician [facility] 01-21-2023 15:10-0400 Body height 162.56 cm No Primary Care Physician [facility] 01-21-2023 15:10-0400 Body mass index (BMI) [Ratio] 46.7 kg/m2 No Primary Care Physician [facility] 01-21-2023 15:10-0400 Body temperature 96.3 [degF] No Primary Care Physician [facility] 01-21-2023 15:10-0400 Body weight 123.61 kg No Primary Care Physician [facility] 01-21-2023 15:10-0400 Diastolic blood pressure 78 mm[Hg] No Primary Care Physician [facility] 01-21-2023 15:10-0400 Heart rate 77 /min No Primary Care Physician [facility] 01-21-2023 15:10-0400 SaO2% (BldA) [Mass fraction] 100 % No Primary Care Physician [facility] 01-21-2023 15:10-0400 Systolic blood pressure 136 mm[Hg] No Primary Care Physician [facility] 12-14-2022 23:31-0500 Diastolic blood pressure 72 mm[Hg] No Primary Care Physician [facility] 12-14-2022 23:31-0500 Heart rate 68 /min No Primary Care Physician [facility] 12-14-2022 23:31-0500 Respiratory rate 18 /min No Primary Care Physician [facility] 12-14-2022 23:31-0500 SaO2% (BldA) [Mass fraction] 100 % No Primary Care Physician [facility] 12-14-2022 23:31-0500 Systolic blood pressure 137 mm[Hg] No Primary Care Physician [facility] 12-14-2022 19:15-0500 Body height 162.56 cm No Primary Care Physician [facility] 12-14-2022 19:15-0500 Body mass index (BMI) [Ratio] 48 kg/m2 No Primary Care Physician [facility] 12-14-2022 19:15-0500 Body temperature 96.9 [degF] No Primary Care Physician [facility] 12-14-2022 19:15-0500 Body weight 127 kg No Primary Care Physician [facility] 10-26-2022 14:01-0500 Heart rate 65 /min No Primary Care Physician [facility] 10-26-2022 14:01-0500 Respiratory rate 18 /min No Primary Care Physician [facility] 10-26-2022 14:01-0500 SaO2% (BldA) [Mass fraction] 100 % No Primary Care Physician [facility] 10-26-2022 12:33-0500 Diastolic blood pressure 85 mm[Hg] No Primary Care Physician [facility] 10-26-2022 12:33-0500 Systolic blood pressure 114 mm[Hg] No Primary Care Physician [facility] 10-26-2022 10:01-0500 Body height 162.56 cm No Primary Care Physician [facility] Work Phone: 10-26-2022 10:01-0500 Body mass index (BMI) [Ratio] 48 kg/m2 No Primary Care Physician [facility] 10-26-2022 10:01-0500 Body temperature 96.8 [degF] No Primary Care Physician [facility] 10-26-2022 10:01-0500 Body weight 127 kg No Primary Care Physician [facility] 09-06-2022 18:51-0400 Diastolic blood pressure 88 mm[Hg] DR SALIMA CONSTANTINO MD [facility] 09-06-2022 18:51-0400 Heart rate 90 /min DR SALIMA CONSTANTINO MD [facility] 09-06-2022 18:51-0400 Respiratory rate 18 /min DR SALIMA CONSTANTINO MD [facility] 09-06-2022 18:51-0400 Systolic blood pressure 140 mm[Hg] DR SALIMA CONSTANTINO MD [facility] 09-06-2022 17:04-0400 Body temperature 98.96 [degF] DR SALIMA CONSTANTINO MD [facility] 09-06-2022 17:04-0400 Diastolic blood pressure 90 mm[Hg] DR SALIMA CONSTANTINO MD [facility] 09-06-2022 17:04-0400 Heart rate 93 /min DR SALIMA CONSTANTINO MD [facility] 09-06-2022 17:04-0400 Respiratory rate 18 /min DR SALIMA CONSTANTINO MD [facility] 09-06-2022 17:04-0400 Systolic blood pressure 151 mm[Hg] DR SALIMA CONSTANTINO MD [facility] 08-18-2022 21:28-0400 Body temperature 101 [degF] No Primary Care Physician [facility] 08-18-2022 21:03-0400 Diastolic blood pressure 76 mm[Hg] [facility] 08-18-2022 21:03-0400 Heart rate 78 /min [facility] 08-18-2022 21:03-0400 Respiratory rate 16 /min [facility] 08-18-2022 21:03-0400 SaO2% (BldA) [Mass fraction] 99 % [facility] 08-18-2022 21:03-0400 Systolic blood pressure 128 mm[Hg] [facility] 08-18-2022 16:21-0400 Body temperature 98.7 [degF] [facility] Work Phone: 08-18-2022 16:20-0400 Body height 162.56 cm [facility] Work Phone: 08-18-2022 16:20-0400 Body mass index (BMI) [Ratio] 46.3 kg/m2 [facility] 08-18-2022 16:20-0400 Body weight 122.4 kg [facility] 10-07-2018 12:45-0500 BMI (Body Mass Index) 46.59 kg/m2 [facility] Work Phone: 10-07-2018 12:45-0500 Body Temperature 97.59 [degF] [facility] Work Phone: 10-07-2018 12:45-0500 BP Diastolic 101 mm[Hg] [facility] Work Phone: 10-07-2018 12:45-0500 BP Systolic 141 mm[Hg] [facility] Work Phone: 10-07-2018 12:45-0500 Height 161.3 cm [facility] Work Phone: 10-07-2018 12:45-0500 Pulse (Heart Rate) 98 /min [facility] Work Phone: 10-07-2018 12:45-0500 Respiratory Rate 18 /min [facility] Work Phone: 10-07-2018 12:45-0500 Weight 121.2 kg [facility] Work Phone: 09-08-2018 15:52-0500 Respiratory Rate 16 /min Juan Dawit [facility] 09-08-2018 11:00-0500 Body Temperature 99.19 [degF] Juan Dawit [facility] 09-08-2018 11:00-0500 BP Diastolic 72 mm[Hg] Juan Dawit [facility] 09-08-2018 11:00-0500 BP Systolic 109 mm[Hg] Juan Pastor [facility] 09-08-2018 11:00-0500 Pulse (Heart Rate) 122 /min Juan Dawit [facility] 09-08-2018 11:00-0500 Pulse Oximetry 94 % Juan Dawit [facility] Encounters Encounter Date Encounter Type Care Provider Facility Start: 05-13-2025 End: 05-13-2025 Office outpatient visit 25 minutes Zoë Santana MD Work Phone: [facility] Comment on above: Type 2 diabetes alix itus without complication, with long-term current use of insulin (Primary Dx); Benign essential HTN; Other insomnia; Healthcare maintenance; Hypomagnesemia Start: 05-13-2025 End: 05-13-2025 Patient encounter status Zoë Santana MD Work Phone: [facility] Work Phone: Start: 05-13-2025 End: 05-13-2025 ambulatory [facility] Start: 05-13-2025 End: 05-13-2025 Encounter for general adult medical examination without abnormal findings [facility] Start: 04-30-2025 End: 04-30-2025 ambulatory [facility] Start: 04-23-2025 End: 04-23-2025 ambulatory [place] [facility] Start: 04-14-2025 End: 04-14-2025 ambulatory [place] [facility] Start: 04-07-2025 End: 04-07-2025 ambulatory [place] [facility] Start: 04-02-2025 End: 04-02-2025 ambulatory [facility] Start: 03-24-2025 End: 03-24-2025 ambulatory [place] [facility] Start: 03-18-2025 End: 03-18-2025 ambulatory [facility] Start: 03-18-2025 End: 03-18-2025 ambulatory [facility] Start: 03-10-2025 End: 03-10-2025 Office outpatient visit 25 minutes Carline Pollack MD [facility] [place] Comment on above: Encounter for postpa rtum visit (Primary Dx); History of gestational diabetes; Counseling for initiation of control method; History of pre-eclampsia; Bilateral lower extremity edema Start: 03-10-2025 End: 03-10-2025 ambulatory CARLINE POLLACK [facility] Start: 03-05-2025 End: 03-05-2025 ambulatory Jaida Bell Facility:[facility] Start: 03-03-2025 End: 03-03-2025 Office outpatient new 45 minutes Zoë Santana MD Work Phone: [facility] Comment on above: Benign essential HTN (Primary Dx); Fatigue, unspecified type; Weight gain; History of gestational diabetes; Anemia, unspecified type; Screening for hyperlipidemia; Attention or concentration deficit; Leg edema; Gastroesophageal reflux disease without esophagitis; psychosis (Multi); Moderate depressive disorder; Anxiety Start: 03-03-2025 End: 03-03-2025 ambulatory ZOË SANTANA [facility] Start: 03-01-2025 End: 03-01-2025 ambulatory JOSE GUADALUPE MILLS [facility] Start: 03-01-2025 End: 03-01-2025 Subsequent hospital visit by physician Jose Guadalupe Mills MD Work Phone: [facility]ne[facility] Comment on above: Severe preeclampsia, third trimester (HHS-HCC) (Primary Dx); Insulin controlled gestational diabetes mellitus (GDM) in second trimester (HHS-HCC) Start: 02-24-2025 End: 02-24-2025 ambulatory Amberly Skalessandro Facility:[facility] Start: 02-19-2025 End: 02-19-2025 ambulatory Jaida Fiore Facility:[facility] Start: 02-16-2025 End: 02-16-2025 ambulatory KELLI MATTHEWS [facility] Start: 02-16-2025 End: 02-16-2025 Subsequent hospital visit by physician Kelli Matthews MD Work Phone: [facility] Ob[facility]etrics [facility] Gyne[facility] Start: 02-10-[address] [facility] Facility :[facility] Start: 02-08-2025 End: 02-15-2025 Evaluation and management of inpatient Earl Colorado MD Work Phone: [facility] Comment on above: Severe preeclampsia, third trimester (HHS-HCC) (Primary Dx); care following vaginal delivery (HHS-HCC); Depression affecting in third trimester, antepartum ([facility]); Gastroesophageal reflux disease, unspecified whether esophagitis present Start: 02-05-2025 End: 02-05-2025 Subsequent hospital visit by physician Bridger Ovallet200 [facility] Ultrasound 4 [facility] Comment on above: Gestational hyperten sal, second trimester ([facility]); Insulin controlled gestational diabetes mellitus (GDM) in third trimester ([facility] [facility] Gestational hypertension w/o significant proteinuria in 3rd trimester ([facility]) Start: 02-05-2025 End: 02-05-2025 ambulatory [facility] Start: 02-03-2025 ambulatory Amberly Laboy Facilit y:BMS Start: 01-29-2025 End: 01-29-2025 Subsequent hospital visit by physician Bridger Ovallet200 Obgynimg Ultrasound 4 [facility] Comment on above: Gestational hyperten sal, second trimester ([facility]); Insulin controlled gestational diabetes mellitus (GDM) in third trimester ([facility]) Start: 01-29-2025 End: 01-29-2025 ambulatory [facility] Start: 01-29-2025 End: 01-29-2025 ambulatory Jaida Macarena Facility:[facility] Start: 01-27-2025 End: 01-27-2025 ambulatory Amberly Laboy Facility:[facility] Start: 01-22-2025 End: 01-22-2025 Subsequent hospital visit by physician Bridger Ovallet200 Obgynimg Ultrasound 3 [facility] Comment on above: Gestational hyperten sal, second trimester ([facility]); Insulin controlled gestational diabetes mellitus (GDM) in third trimester ([facility]); Gestational hypertension w/o significant proteinuria in 3rd trimester ([facility]) Start: 01-22-2025 End: 01-22-2025 ambulatory [facility] Start: 01-20-2025 End: 01-20-2025 ambulatory [facility] Ambulatory Start: 01-15-2025 End: 01-15-2025 Subsequent hospital visit by physician Mac Zewa996 Obgynimg Ultrasound 3 [facility] Comment on above: Screening, , for anatomic survey ([facility]HS-HCC); Obesity affecting in third trimester ([facility]HS-HCC); Gestational diabetes mellitus (GDM) requiring insulin ([facility]-HCC); Gestational hypertension w/o significant proteinuria in 3rd trimester ([facility]-HCC) Start: 01-15-2025 End: 01-15-2025 ambulatory [facility] Start: 01-15-2025 End: 01-15-2025 ambulatory E[facility] Start: 01-15-2025 End: 01-15-2025 Evaluation and management of inpatient Earl Colorado MD Work Phone: [place] [phone] Obstetrics and Gynecology Start: 01-13-2025 End: 01-13-2025 ambulatory Amberly Laboy Facility:BMS Start: 01-08-2025 End: 01-08-2025 ambulatory [facility] Start: 01-08-2025 End: 01-08-2025 Evaluation and management of inpatient Earl Colorado MD Work Phone: [place] [phone] Obstetrics and Gynecology Comment on above: Gestational hyperten sal, second trimester ([facility]) (Primary Dx) Start: 01-08-2025 End: 01-08-2025 Subsequent hospital visit by physician Bridger Ovallet200 Obgynimg Ultrasound 4 [facility] Comment on above: Screening, , for anatomic survey ([facility]); Gestational hypertension ([facility]); Obesity affecting ([facility]); Gestational diabetes mellitus (GDM); AMA (advanced maternal age) multigravida 35+ (HHS-HCC) Start: 01-08-2025 End: 01-08-2025 ambulatory JOSE GUADALUPE GUPTA [facility] Start: 01-06-2025 End: 01-06-2025 ambulatory Amberly Laboy Facility:BMS Start: 01-02-2025 End: 01-02-2025 ambulatory Jaida Fiore Facility:BMS Start: 01-01-2025 End: 01-01-2025 Subsequent hospital visit by physician Bridger Ovallet200 Obgynimg Ultrasound 3 [facility] [place] Comment on above: Screening, , for anatomic survey ([facility]); Encounter for follow-up ultrasound of anatomy; Gestational diabetes requiring insulin (HHS-HCC); AMA (advanced maternal age) multigravida 35+ (HHS-HCC); Obesity affecting ([facility]HS-HCC) Start: 01-01-2025 End: 01-01-2025 ambulatory [facility] Start: 12-23-2024 End: 12-25-2024 Evaluation and management of inpatient Daisy Crews MD Work Phone: [facility] 4 Comment on above: Insulin controlled g estational diabetes mellitus (GDM) in second trimester ([facility]) (Primary Dx); Hyperglycemia in ([facility]); Gestational hypertension, second trimester ([facility]) Start: 12-17-2024 End: 12-17-2024 ambulatory Leticia Bergman [facility] Facility:BMS Start: 12-17-2024 End: 12-17-2024 [facility] Start: 12-03-2024 End: 12-03-2024 ambulatory Jaida Fiore Facility:[facility]MS Start: 12-01-2024 End: 12-01-2024 ambulatory Amberly Laboy Facility:BMS Start: 11-25-2024 End: 11-25-2024 Initial care visit Sugey Pride MD Work Phone: [facility] Comment on above: History of d elivery (Primary Dx) Start: 11-25-2024 End: 11-25-2024 ambulatory SUGEY PRIDE [facility] Start: 11-21-2024 End: 11-21-2024 ambulatory Jaida Fiore Facility:[facility]MS Start: 11-18-2024 End: 11-18-2024 ambulatory Leticia [facility] Facility:BMS Start: 11-14-2024 End: 11-14-2024 ambulatory MAJOR D HERNANDEZ [facility] Start: 11-13-2024 End: 11-13-2024 Emergency department patient visit Major Mejia Facility:[facility] Start: 10-27-2024 End: 10-27-2024 ambulatory MARYANA WILLIS [facility] Start: 10-24-2024 End: 10-24-2024 ambulatory Leticia Bergman [facility] Facility:[facility] Start: 10-24-2024 End: 10-24-2024 ambulatory Jaida Macarena Facility:[facility]MS Start: 10-15-2024 End: 10-15-2024 ambulatory Mayela GRULLON Facility:BMS Start: 10-13-2024 End: 10-14-2024 ambulatory Mayela GRULLON Facility:[facility] Start: 10-10-2024 End: 10-10-2024 ambulatory Amberly Lopez Alissa Facility:[facility]MS Start: 10-09-2024 End: 10-10-2024 ambulatory Christen Posada Facility:[facility] Start: 10-09-2024 End: 10-09-2024 Emergency department patient visit Santivandana Shaver Facility:[facility] Start: 10-01-2024 ambulatory Leticia Bergman [facility] Fa cility:[facility]MS Start: 09-30-2024 End: 09-30-2024 [facility] Start: 09-25-2024 End: 09-25-2024 ambulatory Leticia Bergman [facility] Facility:[facility] Start: 09-25-2024 End: 09-25-2024 ambulatory Leticia Bergman [facility] Facility:[facility] Start: 09-02-2024 End: 09-02-2024 ambulatory Leticia Pacheco [facility] Facility:[facility] Start: 09-02-2024 End: 09-02-2024 ambulatory Leticia Pacheco VSC Facility:[facility] Start: 08-06-2024 End: 08-06-2024 Emergency department patient visit Leticia Pacheco [facility]SC Facility:[facility] Start: 07-14-2024 End: 07-14-2024 ambulatory Leticia Bergman [facility] Facility:[facility] Start: 07-09-2024 End: 07-09-2024 ambulatory Leticia Bergman [facility] Facility:[facility] Start: 06-30-2024 End: 06-30-2024 Emergency department patient visit Leticia Bergman [facility] Facility:[facility] Start: 06-11-2024 [facility] Start: 06-11-2024 End: 06-11-2024 Emergency department patient visit Leticia Bergman [facility] Facility:[facility] Start: 05-21-2024 ambulatory [facility] Fa cility:[facility] Start: 03-03-2024 End: 03-03-2024 ambulatory [facility] Work Phone: Start: 03-03-2024 End: 03-03-2024 Patient encounter procedure [facility] Work Phone: Start: 02-22-2024 End: 02-22-2024 Emergency department patient visit [facility] Work Phone: Start: 12-05-2023 End: 12-05-2023 Emergency department patient visit [facility] Work Phone: Start: 12-04-2023 End: 12-04-2023 Emergency department patient visit [facility] Work Phone: Start: 11-17-2023 End: 11-17-2023 Emergency department patient visit [facility] Work Phone: Start: 10-25-2023 End: 10-25-2023 Emergency department patient visit [facility] Work Phone: Start: 09-05-2023 End: 09-05-2023 Emergency department patient visit [facility] Work Phone: Start: 06-06-2023 Emergency department patient visit STU JOHNSON Facility:[facility] Start: 06-05-2023 End: 06-05-2023 Emergency department patient visit [facility] Work Phone: Start: 05-17-2023 End: 05-17-2023 Emergency department patient visit [facility] Work Phone: Start: 03-14-2023 ambulatory NAYAROGE GODFREY LILI Facility:B Start: 01-21-2023 End: 01-21-2023 Emergency department patient visit No Primary Care Physician [facility] Start: 12-14-2022 End: 12-14-2022 Emergency department patient visit No Primary Care Physician [facility] Start: 12-03-2022 End: 12-03-2022 Emergency department patient visit STU VIJI Facility:[facility] Start: 10-26-2022 End: 10-26-2022 Emergency department patient visit No Primary Care Physician [facility] Start: 10-23-2022 End: 10-23-2022 Patient encounter procedure No Primary Care Physician [facility] Start: 10-07-2022 End: 10-11-2022 Emergency department patient visit PHYSICIAN NO [facility] Start: 09-06-2022 End: 09-06-2022 Emergency department patient visit DR SALIMA CONSTANTINO MD Facility:B Start: 09-06-2022 End: 09-06-2022 Emergency department patient visit DR SALIMA CONSTANTINO MD [facility] Start: 08-18-2022 End: 08-18-2022 Emergency department patient visit [facility] Start: 03-30-2019 End: 03-30-2019 Emergency department patient visit [place] Evel[place] [facility] Start: 03-26-2019 End: 03-26-2019 [facility] Start: 02-08-2019 End: 02-08-2019 [facility] Start: 02-04-2019 End: 02-05-2019 Emergency department patient [facility] Start: 02-02-2019 End: 02-02-2019 Emergency department patient visit GLEN HAMILTON [facility] Start: 12-22-2018 End: 12-22-2018 Emergency department patient visit MAYCOL CASAS [facility] Start: 10-07-2018 Patient encounter procedure JOSEPH RENTERIA [facility] Start: 10-07-2018 End: 10-07-2018 Office outpatient visit 15 minutes Joseph Renteria Work Phone: [facility] [employer] Comment on above: Pelvic pain (Primary Dx); PCOS (polycystic ovarian syndrome); Amenorrhea Start: 09-14-2018 End: 09-14-2018 Emergency department patient visit EHSAN Ortiz [facility] Start: 09-13-2018 Patient encounter procedure JOSEPH J [facility] Start: 09-03-2018 End: 09-03-2018 Patient encounter procedure Freddie Tinoco [facility] Start: 09-03-2018 End: 09-08-2018 Evaluation and management of inpatient FREDDIE TINOCO [facility] Start: 09-03-2018 End: 09-03-2018 [facility] Start: 09-03-2018 End: 09-08-2018 Evaluation and management of inpatient Juan Pastor Work Phone: [facility] Oncology/Surgery Comment on above: Acute pyelonephritis (Primary Dx); Nausea and vomiting, intractability of vomiting not specified, unspecified vomiting type; Crohn's disease of small and large intestines with complication (HCC) Start: 08-31-2018 End: 08-31-2018 Emergency department patient visit [facility] Start: 08-12-2018 End: 08-12-2018 Emergency department patient visit Jade Oquendo Facility:[facility] Start: 07-31-2018 End: 07-31-2018 Emergency department patient visit BRITTANY BURCH [facility] Start: 07-26-2018 End: 07-26-2018 Emergency department patient visit [facility] Start: 07-23-2018 End: 07-23-2018 Emergency department patient visit [facility] Start: 07-09-2018 End: 07-09-2018 Emergency department patient visit JAGJIT SALAZAR [facility] Start: 06-05-2018 End: 06-05-2018 ambulatory UNKNOWN PROVIDER Facility:[facility] Start: 04-27-2018 End: 04-27-2018 Emergency department patient visit [facility] Start: 03-03-2018 End: 03-03-2018 Patient encounter procedure JOSEPH J [facility] Start: 02-27-2018 End: 02-27-2018 Patient encounter Swapna Izquierdo Facility:[facility] Start: 02-19-2018 Patient encounter procedure JOSEPH RENTERIA [facility] Start: 02-16-2018 End: 02-16-2018 Emergency department [facility] Start: 02-15-2018 Patient encounter procedure JOSEPHNAA RENTERIA [facility] Start: 02-12-2018 Patient encounter procedure JOSEPHNAA RENTERIA [facility] Start: 01-27-2018 End: 01-27-2018 Patient encounter procedure LONA CONSTANTINO [facility] Start: 12-18-2017 End: 12-18-2017 Emergency department patient visit Nirmal Maddox Facility:[facility] Start: 11-15-2017 Patient encounter procedure JOSEPHNAA RENTERIA [facility] Start: 11-15-2017 Patient encounter procedure JOSEPHNAA RENTERIA [facility] Start: 10-25-2017 End: 10-27-2017 Patient encounter procedure ASCENCION DUBON [facility] Start: 10-15-2017 End: 10-15-2017 Emergency department patient visit [facility] Start: 09-03-2017 End: 09-03-2017 Emergency department patient visit [facility] Start: 08-28-2017 Ambulatory JAYDEN Meli P[facility]RE[facility] Start: 05-11-2017 End: 05-11-2017 Emergency department patient visit MAYELA ELLIOTT [facility] Procedures Date Procedure Procedure Detail Performing Clinician [...] count complete auto&auto difrntl wbc Dhara Bautista [employer] Work Phone: Start: 02-16-2025 US Abdomen Hanane [...] 02-11-2025 Glucose quantitative blood xcpt reagent strip lCair Castro MD Work Phone: Start: 02-11-2025 Blood [...] Start: 02-09-2025 Comprehensive metabolic panel Dhara Bautista [employer]IST Work Phone: Start: 02-08-2025 Cul prsmptv pthgnc organism scrn w/colony estimj Fide Deleon MD Work Phone: Start: 02-08-2025 Glucose quantitative blood xcpt reagent strip Clair Castro MD Work Phone: Start: 02-08-2025 Influenza virus A and B and SARS-CoV-2 (COVID-19) identified in Respiratory specimen by JYOTI with probe detection Fide Deleon MD Work Phone: Start: 02-08-2025 Creatinine other source Dhara Bautista APR N-DESKTOP SPECIALIST Work Phone: Start: 02-08-2025 Blood typing serologic rh (d) Dhara Bautista [employer] S[employer] SPECIALIST Work Phone: Start: 02-08-2025 End: 02-08-2025 Chloride bld Dhara Bautista BARREL SCRAPER-CN P Work Phone: Start: 02-08-2025 Iaad ia [...] End: 01-08-2025 Comprehensive metabolic panel Vanesa L YYoga [employer]REL SCR[employer] Work Phone: Start: 01-08-2025 Urnls dip stick/tablet rgnt non-auto w/o micrscp Vanesa Simon YYoga BARREL SCRAPER-DESKTOP SPECIALIST Work Phone: Start: 01-01-2025 Us preg uterus [...] biophysical profile w/o non-stress testing Celena Solis BARREL SCRAPER-DESKTOP SPECIALIST Work Phone: Start: 12-24-2024 Glucose quantitative blood xcpt reagent strip Earl Colorado MD Work Phone: Start: 12-23-2024 Glucose quantitative blood xcpt reagent strip Earl Colorado MD Work Phone: Start: 12-23-2024 Urnls dip stick/tablet rgnt non-auto w/o micrscp Celena Solis BARREL SCRAPER-DESKTOP SPECIALIST Work Phone: Start: 12-23-2024 Glucose quantitative blood xcpt reagent strip Earl Colorado MD Work Phone: Start: 12-23-2024 Blood typing serologic rh (d) Celena Solis BARREL SCRAPER-DESKTOP SPECIALIST Work Phone: Start: 12-23-2024 End: 12-23-2024 Comprehensive metabolic panel Celena Solis BARREL SCR[employer]ER-DESKTOP SPECIALIST Work Phone: Start: 12-23-2024 Urnls dip stick/tablet rgnt non-auto w/o micrscp Laney Patricio BARREL SCRAPER-DESKTOP SPECIALIST Work Phone: Start: 12-23-2024 Glucose quantitative blood xcpt reagent strip Daisy Crews MD Work Phone: Start: 02-22-2024 Computed tomography [...] 10-07-2018 End: 10-07-2018 Removal of intrauterine device Joseph Renteria Work Phone: Start: 09-14-2018 Culture bacterial [...] End: 09-03-2018 URINE CLEMENT CONTAINER Triage Protocol [facility] Start: 09-03-2018 End: 09-03-2018 Basic metabolic [...] for Adults (1 - 1-dose 75+ series) [facility] Start: 2039 Zoster Vaccines (1 of 2) Zoster Vaccines (1 of 2) [facility] Start: 2038 Zoster Vaccines (1 of 2) Zoster Vaccines (1 of 2) [facility] Start: 03-05-2030 Lipid panel Lipid Panel [facility] Start: 03-10-2028 Diabetes mellitus screening Diabetes Screening [facility] Start: 03-01-2028 Diabetes mellitus screening Diabetes Screening [facility] Start: 02-13-2028 Diabetes mellitus screening Diabetes Screening [facility] Start: 03-05-2026 Lipid panel Lipid Panel [facility] Start: 07-06-2025 Influenza vaccination [facility] Start: 06-24-2025 End: 06-24-2025 Patient encounter procedure 06/24/2025 1:45 PM EDT Office Visit [facility] Internal Medicine [address] [place] [address] Zoë Santana MD [address] [place] [address] [facility] Start: 06-05-2025 Hemoglobin A1c measurement Diabetes: Hemoglobin A1C [facility] Start: 05-27-2025 End: 05-27-2025 Patient encounter procedure 05/27/2025 8:00 AM EDT Office Visit [facility] [address] [place] [id number] Maycol Dykes MD [address] [facility] [place] [address] [facility] Start: 05-26-2025 End: 05-26-2025 Clinical Support 05/26/2025 3:00 PM EDT Clinical Support [facility] [address] [address] [facility] Start: 05-13-2025 End: 05-13-2026 Comprehensive metabolic 2000 panel - Serum or Plasma Comprehensive Metabolic Panel Lab Routine Type 2 diabetes mellitus without complication, with long-term current use of insulin Expected: 05/13/2025 (Approximate), Expires: 05/13/2026 [facility] Service Area Work Phone: Comment on above: Expected: 05/13/2025 (Approximate), Expi res: 05/13/2026 Start: 05-13-2025 End: 05-13-2026 Hemoglobin A1c/Hemoglobin.total in Blood Hemoglobin A1C Lab Routine Type 2 diabetes mellitus without complication, with long-term current use of insulin Expected: 05/13/2025 (Approximate), Expires: 05/13/2026 [facility] Work Phone: Comment on above: Expected: 05/13/2025 (Approximate), Expi res: 05/13/2026 Start: 05-13-2025 End: 05-13-2026 Magnesium [Mass/volume] in Serum or Plasma Magnesium Lab Routine Hypomagnesemia Expected: 05/13/2025 (Approximate), Expires: 05/13/2026 [facility] Work Phone: Comment on above: Expected: 05/13/2025 (Approximate), Expi res: 05/13/2026 Start: 05-13-2025 End: 05-13-2026 Microalbumin/Creatinin e [Mass Ratio] in Urine Albumin-Creatinine Ratio, Urine Random Lab Routine Type 2 diabetes mellitus without complication, with long-term current use of insulin Expected: 05/13/2025 (Approximate), Expires: 05/13/2026 [facility] Work Phone: Comment on above: Expected: 05/13/2025 (Approximate), Expi res: 05/13/2026 Start: 03-17-2025 End: 03-17-2025 Patient encounter procedure 03/17/2025 11:15 AM EDT Office Visit [facility] Medicine [address] [place] [phone] Zoë Santana MD [address] [place] [address] [facility] Start: 03-12-2025 End: 03-12-2025 Patient encounter procedure 03/12/2025 1:00 PM EDT Office Visit [facility] [address] [place] [id number] [place] [address] [place] [address] [facility] Start: 03-03-2025 End: 03-03-2026 CBC W Auto Differential panel - Blood CBC and Auto Differential Lab Routine Fatigue, unspecified type Anemia, unspecified type Expected: 03/03/2025 (Approximate), Expires: 03/03/2026 [facility] Work Phone: Comment on above: Expected: 03/03/2025 (Approximate), Expi res: 03/03/2026 Start: 03-03-2025 End: 03-03-2026 Comprehensive metabolic 2000 panel - Serum or Plasma Comprehensive Metabolic Panel Lab Routine Fatigue, unspecified type Benign essential HTN Weight gain History of gestational diabetes Expected: 03/03/2025 (Approximate), Expires: 03/03/2026 [facility] Service Area Work Phone: Comment on above: Expected: 03/03/2025 (Approximate), Expi res: 03/03/2026 Start: 03-03-2025 End: 03-03-2026 Hemoglobin A1c/Hemoglobin.total in Blood Hemoglobin A1C Lab Routine History of gestational diabetes Expected: 03/03/2025 (Approximate), Expires: 03/03/2026 [facility] Work Phone: Comment on above: Expected: 03/03/2025 (Approximate), Expi res: 03/03/2026 Start: 03-03-2025 End: 03-03-2026 Lipid 1996 panel - Serum or Plasma Lipid Panel Lab Routine Screening for hyperlipidemia Expected: 03/03/2025 (Approximate), Expires: 03/03/2026 [facility] Work Phone: Comment on above: Expected: 03/03/2025 (Approximate), Expi res: 03/03/2026 Start: 03-03-2025 End: 03-03-2026 Magnesium [Mass/volume] in Serum or Plasma Magnesium Lab Routine Fatigue, unspecified type Expected: 03/03/2025 (Approximate), Expires: 03/03/2026 [facility] Work Phone: Comment on above: Expected: 03/03/2025 (Approximate), Expi res: 03/03/2026 Start: 03-03-2025 End: 03-03-2026 TSH with reflex to Free T4 if abnormal TSH with reflex to Free T4 if abnormal Lab Routine Fatigue, unspecified type Weight gain Expected: 03/03/2025 (Approximate), Expires: 03/03/2026 [facility] Work Phone: Comment on above: Expected: 03/03/2025 (Approximate), Expi res: 03/03/2026 Start: 03-03-2025 End: 03-03-2026 Zinc [Mass/volume] in Serum or Plasma Zinc Lab Routine Fatigue, unspecified type Expected: 03/03/2025 (Approximate), Expires: 03/03/2026 [facility] Work Phone: Comment on above: Expected: 03/03/2025 (Approximate), Expi res: 03/03/2026 Start: 03-03-2025 End: 03-03-2025 Patient encounter procedure 03/03/2025 11:30 AM EDT Office Visit [facility] Medicine [address] [place] [id number] Zoë Santana MD [address] [place] [address] [facility] Start: 03-02-2025 End: 03-02-2025 Clinical Support [facility] Start: 02-26-2025 End: 02-26-2025 Patient encounter procedure [facility] Start: 02-23-2025 End: 02-23-2025 Clinical Support [facility] Start: 02-20-2025 End: 02-20-2025 Clinical Support 02/20/2025 10:00 AM EDT Clinical Support [facility] [address] [place] [phone] [facility] Start: 02-19-2025 End: 02-19-2025 Patient encounter procedure [facility] Start: 02-16-2025 End: 02-16-2025 Clinical Support [facility] Start: 02-12-2025 End: 02-12-2025 Patient encounter procedure [facility] Start: 02-09-2025 End: 02-09-2025 Clinical Support [facility] Start: 02-05-2025 End: 02-05-2025 Patient encounter procedure [facility] Start: 02-02-2025 End: 02-02-2025 Clinical Support [facility] Start: 01-29-2025 End: 01-29-2025 Patient encounter procedure [facility] Start: 01-26-2025 End: 01-26-2025 Clinical Support [facility] Start: 01-22-2025 End: 01-22-2025 Patient encounter procedure [facility] Start: 01-20-2025 End: 01-20-2025 Clinical Support [facility] Start: 01-16-2025 Orders Only 01/16/2025 Orders Only [facility] [phone] [place] [id number] [place] [address] [place] [address] Gestational hypertension, second trimester ([facility]) [facility] Comment on above: Gestational hypertension, second trimest er ([facility]) Start: 01-15-2025 End: 01-15-2025 Patient encounter procedure [facility] Start: 01-09-2025 Orders Only 01/09/2025 Orders Only [place] [id number] [place] [address] [place] [address] [place] [address] Gestational hypertension, second trimester ([facility]) [facility] Comment on above: Gestational hypertension, second trimest er ([facility]) Start: 01-08-2025 End: 01-08-2026 Creatinine [Mass/volume] in 24 hour Urine Creatinine, 24 Hour Urine Lab Routine Gestational hypertension, second trimester ([facility]) Expected: 01/08/2025 (Approximate), Expires: 01/08/2026 [facility] Work Phone: Comment on above: Expected: 01/08/2025 (Approximate), Expi res: 01/08/2026 Start: 01-08-2025 End: 01-08-2026 Protein [Mass/volume] in 24 hour Urine Protein, Total 24 Hour Urine Lab Routine Gestational hypertension, second trimester ([facility]) Expected: 01/08/2025 (Approximate), Expires: 01/08/2026 [facility] Work Phone: Comment on above: Expected: 01/08/2025 (Approximate), Expi res: 01/08/2026 Start: 01-06-2025 End: 01-06-2025 ambulatory 01/06/2025 1:30 PM EST Initial [facility] [address] [place] [id number] [place] [address] [place] [address] [facility] Start: 01-06-2025 End: 01-06-2025 Patient encounter procedure 01/06/2025 12:30 PM EST Appointment [facility] [address] [place] [address] [facility] Start: 01-01-2025 End: 01-01-2025 ambulatory 01/01/2025 1:00 PM EST Initial [facility] [address] [place] [address] [place] [address] [place] [address] [facility] Start: 12-25-2024 End: 12-25-2024 Patient encounter procedure 12/25/2024 11:30 AM EST Routine [address] [place] [address] [facility] Start: 07-06-2024 COVID-19 Vaccine ( season) COVID-19 Vaccine ( season) [facility] Start: 07-06-2024 Influenza vaccination Influenza Vaccine (#1) [facility] Start: 02-22-2024 [facility] Start: 12-05-2023 [facility] Start: 11-17-2023 [facility] Start: 10-25-2023 [facility] Start: 09-05-2023 [facility] Start: 09-05-2023 Enteric precautions [facility] Start: 06-05-2021 Screening for malignant neoplasm of cervix [facility] Start: 10-22-2020 Screening for malignant neoplasm of cervix [facility] Start: 2019 Screening for malignant neoplasm of cervix HPV/Cotest [facility] Start: 02-10-2019 End: 02-10-2019 Ambulatory 02/10/2019 Office Visit Gastroenterology Lupe Vo MD [address] [facility] [place] [address] Division of Gastroenterology and Hepatology [place] Start: 10-22-2018 Screening for malignant neoplasm of cervix PAP SMEAR DISCUSSION [facility] Work Phone: Start: 10-07-2018 End: 10-07-2019 HCG ( test) Ql BETA HCG, QUANT, BLOOD Routine Amenorrhea Expected: 10/07/2018, Expires: 10/07/2019 [facility] Work Phone: Comment on above: Expected: 10/07/2018, Expires: 9 Start: 07-25-2018 Colonoscopy COLONOSCOPY [facility] Work Phone: Start: 07-06-2018 Influenza vaccination [facility] Start: 2011 DTaP/Tdap/Td Vaccines (1 - Tdap) DTaP/Tdap/Td Vaccines (1 - Tdap) [facility] Start: 2010 DTaP/Tdap/Td Vaccines (1 - Tdap) DTaP/Tdap/Td Vaccines (1 - Tdap) [facility] Start: 2010 Screening for malignant neoplasm of cervix HPV/Cotest [facility] Start: 2009 Screening for malignant neoplasm of cervix HPV/Cotest [facility] Start: 2008 DTaP/Tdap/Td Vaccines (1 - Tdap) DTaP/Tdap/Td Vaccines (1 - Tdap) [facility] Start: 2008 Hepatitis B Vaccines (1 of 3 - 19+ 3-dose series) Hepatitis B Vaccines (1 of 3 - 19+ 3-dose series) [facility] Start: 2007 Diabetes mellitus screening Diabetes Screening [facility] Start: 2007 Hepatitis B Vaccines (1 of 3 - 19+ 3-dose series) Hepatitis B Vaccines (1 of 3 - 19+ 3-dose series) [facility] Start: 2007 Hepatitis C screening Hepatitis C Screening [facility] Start: 2007 PNEUMOCOCCAL VACCINE SERIES (1 of 3 - PCV13) PNEUMOCOCCAL VACCINE SERIES (1 of 3 - PCV13) [facility] Work Phone: Start: 2007 Pneumococcal Vaccine: Pediatrics and At-Risk Adult Patients (1 of 2 - PCV) Pneumococcal Vaccine: Pediatrics and At-Risk Adult Patients (1 of 2 - PCV) [facility] Start: 2007 Third diphtheria, tetanus and acellular pertussis (DTaP) vaccination TDAP (ADULT) [facility] Work Phone: Start: 2006 Hepatitis C screening Hepatitis C Screening [facility] Start: 2006 Tetanus vaccination TETANUS [facility] Work Phone: Start: 2002 Varicella vaccination Varicella Vaccines (1 of 2 - 13+ 2-dose series) [facility] Start: 2001 Depression Monitoring Depression Monitoring [facility] Start: 2001 Varicella vaccination Varicella Vaccines (1 of 2 - 13+ 2-dose series) [facility] Start: 1998 Glaucoma screening Diabetes: Retinopathy Screening [facility] Start: 1990 Hepatitis B Surface Antibody Hepatitis B Surface Antibody [facility] Start: 1990 MMR Vaccines (1 of 1 - Standard series) MMR Vaccines (1 of 1 - Standard series) [facility] Start: 1989 Cyanocobalamin vitamin b-12 Vitamin B-12 [facility] Start: 1989 Lipid panel Lipid Panel [facility] Start: 1989 MMR Vaccines (1 of 1 - Standard series) MMR Vaccines (1 of 1 - Standard series) [facility] Start: 1989 Screening for osteoporosis Bone Density Scan [facility] Start: 1989 TB Test TB Test [facility] Start: 1989 Vitamin D25-OH Vitamin D25-OH [facility] Start: 1989 Yearly Adult Physical Yearly Adult Physical [facility] Start: 1988 Cyanocobalamin vitamin b-12 Vitamin B-12 [facility] Start: 1988 Lipid panel Lipid Panel [facility] Start: 1988 Screening for malignant neoplasm of cervix PAP SMEAR [facility] Start: 1988 Screening for osteoporosis Bone Density Scan [facility] Start: 1988 TB Test TB Test [facility] Start: 1988 Tetanus vaccination TETANUS EVERY 10 YR [facility] Start: 1988 Urine screening for protein Diabetes: Urine Protein Screening [facility] Start: 1988 Vitamin D25-OH Vitamin D25-OH [facility] Start: 1988 Yearly Adult Physical Yearly Adult Physical [facility] Bacteria identified Cx Nom (Bld) [facility] End: 12-25-2025 CBC panel - Blood by Automated count CBC Lab Routine Gestational hypertension, second trimester ([facility]) Once a week for 12 Occurrences starting 12/25/2024 until 12/25/2025 [facility] Work Phone: Comment on above: Once a week for 12 Occurrences starting 12/25/2024 until 12/25/2025 End: 02-12-2025 Chlamydia trachomatis and Neisseria gonorrhoeae DNA [Identifier] in Unspecified specimen by JYOTI with probe detection C. trachomatis / N. gonorrhoeae, Amplified, Urogenital Lab Add-On Once (Lab) for 1 Occurrences starting 02/12/2025 until 02/12/2025 [facility] Service Area Work Phone: Comment on above: Once (Lab) for 1 Occurrences starting until 02/12/2025 End: 12-25-2025 Comprehensive metabolic 2000 panel - Serum or Plasma Comprehensive Metabolic Panel Lab Routine Gestational hypertension, second trimester ([facility]) Once a week for 12 Occurrences starting 12/25/2024 until 12/25/2025 [facility] Work Phone: Comment on above: Once a week for 12 Occurrences starting 12/25/2024 until 12/25/2025 Electrocardiogram, 12-lead PRN ACS symptoms Electrocardiogram, 12-lead PRN ACS symptoms ECG Routine As needed until discontinued starting 12/23/2024 [facility] Work Phone: Comment on above: As needed until discontinued starting Electrocardiogram, 12-lead PRN ACS symptoms Electrocardiogram, 12-lead PRN ACS symptoms ECG Routine As needed until discontinued starting 12/23/2024 [facility] Work Phone: Comment on above: As needed until discontinued starting Electrocardiogram, 12-lead PRN ACS symptoms Electrocardiogram, 12-lead PRN ACS symptoms ECG Routine As needed until discontinued starting 01/08/2025 [facility] Work Phone: Comment on above: As needed until discontinued starting Electrocardiogram, 12-lead PRN ACS symptoms Electrocardiogram, 12-lead PRN ACS symptoms ECG Routine As needed until discontinued starting 02/13/2025 [facility] Work Phone: Comment on above: As needed until discontinued starting Electrocardiogram, 12-lead PRN ACS symptoms Electrocardiogram, 12-lead PRN ACS symptoms ECG Routine As needed until discontinued starting 02/16/2025 [facility] Work Phone: Comment on above: As needed until discontinued starting Electrocardiogram, 12-lead PRN ACS symptoms Electrocardiogram, 12-lead PRN ACS symptoms ECG Routine As needed until discontinued starting 03/01/2025 [facility] Service Area Work Phone: Comment on above: As needed until discontinued starting Gas panel - Arterial cord blood Blood Gas Cord Arterial Lab Timed As needed (Lab) until discontinued starting 12/23/2024 [facility] Work Phone: Comment on above: As needed (Lab) until discontinued start ing 12/23/2024 Gas panel - Arterial cord blood Blood Gas Cord Arterial Lab Routine As needed (Lab) until discontinued starting 02/13/2025 [facility] Work Phone: Comment on above: As needed (Lab) until discontinued start ing 02/13/2025 Gas panel - Venous cord blood Blood Gas Cord Venous Lab Timed As needed (Lab) until discontinued starting 12/23/2024 [facility] Work Phone: Comment on above: As needed (Lab) until discontinued start ing 12/23/2024 Gas panel - Venous cord blood Blood Gas Cord Venous Lab Routine As needed (Lab) until discontinued starting 02/13/2025 [facility] Work Phone: Comment on above: As needed (Lab) until discontinued start ing 02/13/2025 Glucose [Mass/volume ] in Serum or Plasma POCT Glucose Point of Care Testing - Docked Device Routine As needed (Lab) until discontinued starting 12/23/2024 [facility] Work Phone: Comment on above: As needed (Lab) until discontinued start ing 12/23/2024 Glucose [Mass/volume ] in Serum or Plasma [facility] Work Phone: Comment on above: Every Morning (Lab) until discontinued s tarting 12/24/2024, 1 completed 3 times daily after meals (Lab) until discontinued starting 12/24/2024, 3 completed End: 12-23-2024 Nonstress test [facility] Work Phone: Comment on above: Once for 1 Occurrences starting 12/23/19 until 12/23/2024 Daily until disconti nued starting 12/24/2024 As needed until disc ontinued starting 12/23/2024 End: 01-08-2025 Nonstress test nonstress test (>= 23 weeks) Procedures Routine Once for 1 Occurrences starting 01/08/2025 until 01/08/2025 [facility] Work Phone: Comment on above: Once for 1 Occurrences starting 01/09/20 until 01/08/2025 Patient Education [facility] Work Phone: Patient referral [facility] Work Phone: End: 02-16-2025 POCT UA (nonautomated) manually resulted POCT UA (nonautomated) manually resulted Point of Care Testing Routine Once (Lab) for 1 Occurrences starting 02/16/2025 until 02/16/2025 [facility] Service Area Work Phone: Comment on above: Once (Lab) for 1 Occurrences starting until 02/16/2025 End: 03-01-2025 POCT UA (nonautomated) manually resulted POCT UA (nonautomated) manually resulted Point of Care Testing Routine Once (Lab) for 1 Occurrences starting 03/01/2025 until 03/01/2025 [facility] Work Phone: Comment on above: Once (Lab) for 1 Occurrences starting until 03/01/2025 End: 01-08-2025 US for [facility] Service Area Work Phone: Comment on above: Once for 1 Occurrences starting 01/09/20 until 01/08/2025 End: 01-29-2025 US for [facility] Work Phone: Comment on above: Once for 1 Occurrences starting 01/30/20 until 01/29/2025 Immunizations Immunization Date Immunization Notes Care Provider Gerard bain 05-01-2015 PPD (MANTOUX TEST); Translations: [PPD (MANTOUX TEST)] Joseph Renteria [facility] Work Phone: 02-13-2014 tuberculin skin test ; purified protein derivative solution, intradermal Zoë Santana MD Work Phone: [facility] NEGATED: Highlighted row has not occurred!02-15-2025 measles, mumps and rubella virus vaccine Earl Coloardo MD Work Phone: [facility] Comment on above: Deferred: No longer needed Payers Date Payer Category Payer Medicaid MEDICAID [id number] 2024 Unknown [id number] 2023 [employer] [id number]. 2023 [employer] Managed Care - O [employer] BLUE CROSS [id number] 2023 Unknown [id number] 2023 Unknown [id number] 2022 Self-pay [id number] 2018 Private Health Insurance [id number] 2015 Medicaid [id number] 1989 Unknown [id number] 2.16.840.1.126844.3.579.2. 627 1989 Unknown [id number] 2.16.840.1.871443.3.579.2. 627 1989 Unknown [id number] 2.16.840.1.765266.3.579.2. 479 1989 Unknown [id number] 2.16.840.1.691578.3.579.2. 479 1989 Unknown [id number] 2.16.840.1.011374.3.579.2. 9 1989 Unknown [id number] 2.16.840.1.020869.3.579.2. 9 1989 Unknown [id number] 2.16.840.1.234306.3.579.2. 1243 1989 Unknown [id number] 2.16.840.1.297979.3.579.2. 1244 1989 Unknown [id number] 2.16.840.1.269447.3.579.2. 1244 1989 Unknown [id number] 2.16.840.1.035508.3.579.2. 1244 1989 Unknown [id number] 2.16.840.1.279227.3.579.2. 1244 1989 Unknown [id number] 2.16.840.1.698119.3.579.2. 1244 1989 Unknown [id number] 2.16.840.1.616860.3.579.2. 1244 1989 Unknown [id number] 2.16.840.1.012045.3.579.2. 1244 1989 Unknown [id number] 2.16.840.1.799050.3.579.2. 1244 1989 Unknown [id number] 2.16.840.1.989431.3.579.2. 1244 1989 Unknown [id number] 2.16.840.1.501469.3.579.2. 1244 1989 Unknown [id number] 2.16.840.1.284618.3.579.2. 1244 1989 Unknown [id number] 2.16.840.1.078175.3.579.2. 1244 1989 Unknown [id number] 2.16.840.1.935683.3.579.2. 1245 1989 Unknown [id number] 2.16.840.1.209360.3.579.2. 1245 1989 Unknown [id number] 2.16.840.1.561182.3.579.2. 1245 1989 Unknown [id number] 2.16.840.1.385587.3.579.2. 1245 1989 Unknown [id number] 2.16.840.1.642120.3.579.2. 1245 1988 Unknown [id number] 2.16.840.1.707896.3.579.2. 430 1988 Unknown [id number] 2.16.840.1.135979.3.579.2. 902 1988 Unknown [id number] 2.16.840.1.638694.3.579.2. 173 1988 Unknown [id number] 2.16.840.1.972847.3.579.2. 173 1988 Unknown [id number] 2.16.840.1.824284.3.579.2. 173 1988 Unknown [id number] 2.16.840.1.695232.3.579.2. 174 1988 Unknown [id number] 2.16.840.1.846513.3.579.2. 174 1988 Unknown [id number] 2.16.840.1.455117.3.579.2. 174 1988 Unknown [id number] 2.16.840.1.807832.3.579.2. 174 1988 Unknown [id number] 2.16.840.1.832287.3.579.2. 174 1988 Unknown [id number] 2.16.840.1.388218.3.579.2. 174 1988 Unknown [id number] 2.16.840.1.953993.3.579.2. 732 1988 Unknown [id number] 2.16.840.1.317965.3.579.2. 903 1988 Unknown [id number] 2.16.840.1.177873.3.579.2. 903 1988 Unknown [id number] 2.16.840.1.984563.3.579.2. 1244 1988 Unknown [id number] 2.16840.1.761738.3.579.2. 1244 1988 Unknown [id number] 2.16840.1.508160.3.579.2. 1244 1988 Unknown [id number] 2.16840.1.566083.3.579.2. 1245 1988 Unknown [id number] 2.0.1.132856.3.579.2. 1245 Unknown Unknown ANTHEM [id number] Unknown [id number] Unknown [place] [id number] Unknown [id number] 2.840.1.041550.3.579.2. 462 Unknown [id number] 2.840.1.903805.3.579.2. 462 Unknown [id number] 2.840.1.576796.3.579.2. 462 Unknown [id number] 2.840.1.464068.3.579.2. 462 Unknown [id number] 2.840.1.976116.3.579.2. 462 Unknown [id number] 2.840.1.580658.3.579.2. 462 Unknown [id number] 2.840.1.372556.3.579.2. 462 Unknown [id number] 2.16.840.1.429099.3.579.2. 462 Unknown [id number] 2.16.840.1.702924.3.579.2. 462 Unknown [id number] 2.16.840.1.402869.3.579.2. 462 Unknown [id number] 2.16.840.1.640672.3.579.2. 462 Unknown [id number] 2.16.840.1.161258.3.579.2. 462 Unknown [id number] 2.16.840.1.210618.3.579.2. 462 Unknown [id number] 2.16.840.1.483798.3.579.2. 462 Unknown [id number] 2.16.840.1.782585.3.579.2. 462 Unknown [id number] 2.16.840.1.693451.3.579.2. 462 Unknown [id number] 2.16.840.1.714890.3.579.2. 462 Unknown [id number] 2.16.840.1.636171.3.579.2. 462 Unknown [id number] 2.16.840.1.205589.3.579.2. 462 Unknown [id number] 2.16.840.1.820042.3.579.2. 462 Unknown [id number] 2.16.840.1.246944.3.579.2. 462 Unknown [id number] 2.16.840.1.284286.3.579.2. 462 Unknown [id number] 2.16.840.1.017952.3.579.2. 462 Unknown [id number] 2.16.840.1.147972.3.579.2. 462 Unknown [id number] 2.16.840.1.054875.3.579.2. 462 Unknown [id number] 2.16840.1.444100.3.579.2. 462 Unknown [id number] 2.840.1.029024.3.579.2. 462 Unknown [id number] 2.16.840.1.662927.3.579.2. 462 Unknown [id number] 2.16840.1.160623.3.579.2. 462 Unknown [id number] 2.840.1.438530.3.579.2. 462 Unknown [id number] 2.840.1.812226.3.579.2. 462 Unknown [id number] 2.840.1.196868.3.579.2. 462 Unknown [id number] 2.840.1.914365.3.579.2. 462 Unknown [id number] 2.840.1.898414.3.579.2. 462 Unknown [id number] 2.840.1.185724.3.579.2. 462 Unknown [id number] 2.840.1.623470.3.579.2. 462 Unknown [id number] 2.840.1.171931.3.579.2. 462 Unknown [id number] 2.840.1.204474.3.579.2. 462 Unknown [id number] 2.840.1.542648.3.579.2. 462 Unknown [id number] 2.840.1.284435.3.579.2. 462 Unknown [id number] 2.840.1.157192.3.579.2. 462 Unknown [id number] 2.840.1.073089.3.579.2. 462 Unknown [id number] 2.840.1.874747.3.579.2. 462 Unknown [id number] 2.840.1.342941.3.579.2. 462 Unknown [id number] 2.16.840.1.114966.3.579.2. 462 Unknown [id number] 2.16.840.1.271839.3.579.2. 462 Social History Date Type Detail Facility Start: 09-03-2018 End: 10-07-2018 Tobacco smoking status NHIS Never smoker [facility] Start: 1988 End: 1989 Sex Assigned At Not on file [facility] Start: 08-18-2022 End: 02-22-2024 Tobacco smoking status PAIS Unknown if ever smoked [facility] Start: 1988 End: 1989 Sex Assigned At Female [facility] Tobacco smoking status No Smoking Status Entered [facility] Start: 12-09-2024 Alcoholic beverage intake Current non-drinker of alcohol (finding) [facility] Start: 11-25-2024 End: 03-10-2025 History of Social function [facility] Start: 11-25-2024 End: 03-10-2025 Tobacco use panel [facility] Start: 06-05-2022 Sex Female (finding) [facility] Start: 12-23-2024 Tobacco smoking status PAIS Ex-smoker [facility] History of tobacco use Current smoker [facility] Work Phone: History of tobacco use Cigarette Smoker [facility] Work Phone: Within the last year , have you been afraid of your partner or ex-partner? No [facility] Work Phone: How often to you hav e a drink containing alcohol? Never [facility] Work Phone: How many standard drinks containing alcohol do you have on a typical day? Patient does not drink [facility] Work Phone: How hard is it for you to pay for the very basics like food, housing, medical care, and heating Somewhat hard [facility] Work Phone: (I/We) worried whether (my/our) food would run out before (I/we) got money to buy more. Never true [facility] Work Phone: Start: 07-14-2024 [facility] Work Phone: Start: 12-13-2024 End: 03-10-2025 Exposure to SARS-CoV-2 (event) Not sure [facility] Work Phone: Start: 01-01-2025 End: 05-13-2025 Alcoholic beverage intake Lifetime non-drinker (finding) [facility] Work Phone: Start: 03-03-2025 Tobacco smoking status NHIS Smokes tobacco daily [facility] Work Phone: NEGATED: Highlighted row [facility] Medical Equipment Procedure Code Equipment Code Equipment Origin al Text Equipment Identifier Dates Use to Test Bloo d Glucose 4 times a day - fasting and at 2 hours after a meal. [id number] Start: 02-12-2018 FOR FASTING AND 2 HOURS AFTER MEALS [id number] Start: 02-12-2018 Use 1 strip 4-6 times a day during [id number] Start: 12-25-2024 Use 1 lancet 4-6 times per day during [id number] Start: 12-25-2024 Use 1 per inject ion, up to 5 times a day [id number] Start: 12-25-2024 End: 01-01-2025 Use 1 per inject ion, up to 5 times a day [id number] Start: 01-01-2025 Use 1 per inject ion, up to 8 times a day [id number] Start: 01-06-2025 End: 03-01-2025 Use 1 per inject ion, up to 8 times a day [id number] Start: 03-01-2025 Functional Status Date Assessment Result Facility 05-13-2025 Patient Health Questionnaire 2 item (PHQ-2) [Reported] [facility] Work Phone: 03-10-2025 Patient Health Questionnaire 2 item (PHQ-2) [Reported] [facility] Work Phone: 03-03-2025 Patient Health Questionnaire 2 item (PHQ-2) [Reported] [facility] Work Phone: 03-01-2025 Total score [AUDIT-C] 0 03/01/20 25 4:40 PM EDT Gregory Harrell, DOUG [facility] Work Phone: 03-01-2025 Patient Health Questionnaire 2 item (PHQ-2) [Reported] [facility] Work Phone: 03-01-2025 [facility] suicide s everity rating scale screener - recent [C-SSRS] [facility] Work Phone: 09-06-2022 Functional Status Independent [facility] 09-06-2022 Functional Status Standard Safet y ID band on, Call device within reach, Bed in low position, Wheels locked, personal items within reach, Visitor at bedside, Safety level maintained [facility] Work Phone: Mental Status Date Assessment Result Facility 12-14-2022 Cognitive function Voice/Name [facility] Work Phone: 10-26-2022 Cognitive function Level Of Cons ciousness Awake;Alert;Appropriate;Follow s Commands [facility] Work Phone: 09-06-2022 Mental Status Orientation Oriented x 4 [facility] 09-06-2022 Mental Status [facility] Clinical Notes 09-06-2022 to 05-13-2025 Zoë [...] TO TAKE DOXY WITH H/O C.DIFF. NEEDS POLITICAL GEOGRAPHER REFERRAL FOR CONTROL INJECTIONS. Review of Systems [...] duration EACH TIME. documented in this encounter [facility] Work Phone: 03-10-2025 Evaluation + Plan note [...] PCP -Has PCP follow up on 5/13 [facility] Work Phone: 03-10-2025 Evaluation + Plan note [...] mammogram. Referral to cancer genetics. -Will schedule pilot steam yacht follow up visit for pap, depo, and further discussion of mammogram timing. Orders: Referral to Physical Therapy; Future Referral to Genetics; Future [facility] Work Phone: 03-10-2025 Evaluation + Plan note Associated Problem(s): Counseling for initiation of control method -Discussed recommendation for progesterone only methods given persistent high blood pressure with likely chronic hypertension. Discussed risks and benefits of options. Patient desires depo. First dose given today. Next dose early end of May/early June. Orders: medroxyPROGESTERone (Depo-Provera) injection 150 mg [facility] Work Phone: 03-10-2025 Evaluation + Plan note Associated Problem(s): History of pre-eclampsia -Cont nifedipine 60/30 and spirinolactone per PCP. Recommend discussing with PCP switching to JUSTINE/ARB now that patient is . -Cont daily BP monitoring at home. [facility] Work Phone: 03-10-2025 Evaluation + Plan note Associated Problem(s): Bilateral lower extremity edema -Likely secondary to related fluid changes given still in period. Bilateral without pain or erythema, low suspicion for DVT. -Encouraged elevation and compression socks -Patient desires lasix course, prescribed. Orders: Basic Metabolic Panel; Future furosemide (Lasix) 40 mg tablet; Take 1 tablet (40 mg) by mouth once daily. T [facility] Work Phone: 03-10-2025 History of Present illness [...] mammogram. Referral to cancer genetics. -Will schedule pilot steam yacht follow up visit for pap, depo, and [...] once daily. RTC in 3 months for pilot steam yacht visit Patient seen and evaluated with Dr. [...] MD Maternal Medicine documented in this encounter [facility] Work Phone: 03-10-2025 Miscellaneous Notes Associated Problem(s): [...] mammogram. Referral to cancer genetics. -Will schedule pilot steam yacht follow up visit for pap, depo, and [...] mouth once daily. documented in this encounter [facility] Work Phone: 03-03-2025 History of Present illness [...] THE WITH WEIGHT LOSS. HAS F/U WITH POLITICAL GEOGRAPHER AND PSYCHIATRIST. HAS H/O CROHN'S DISEASE , [...] for diabetic diet. documented in this encounter [facility] Work Phone: 02-16-2025 Note Hanane Malagon MD [...] decision making as documented in the note. [facility] Work Phone: 02-16-2025 Procedure note Associated Ord [...] in the note. documented in this encounter [facility] Work Phone: 02-15-2025 equine manager Note Patient meets criteria for home monitoring of blood pressure post discharge. Met with patient to assess for availability of home BP monitor. Patient does not have access to BP monitor at home. Pt agreed to order home BP monitor from [employer]. BP monitor delivered to room. Patient educated on how to use BP monitor, recording BP s on home monitoring log and s/sx to report to her provider. Pt verbalized understanding the above information. [facility] Work Phone: 02-15-2025 Miscellaneous Notes Patient meets criteria for home monitoring of blood pressure post discharge. Met with patient to assess for availability of home BP monitor. Patient does not have access to BP monitor at home. Pt agreed to order home BP monitor from [employer]. BP monitor delivered to room. Patient educated [...] s/sx of HDP and BP<160/110 Outcome: Progressing Eligibility Counselor Note Recommendations/Summary Attempted to see mother to [...] note was copied from a baby's chart. Eligibility Counselor Note Consultation Reason for Consult: Initial assessment, NICU baby Nitrocellulose Maker Name: Isabel Contreras RN IBCLC Maternal Information [...] extremities Neuro: awake and conversant, reflexes per supplier quality: normal mood Skin: no rashes or lesions [...] Delivery Provider: Jose Guadalupe Gupta MD Resident/Fellow/Other Sand Digger: Hanane Malagon MD / Luz Thomas MD [...] stable condition. Additional Procedures: None Dinh Tinsley [[id number]] Labor Events Rupture date/time: 02/11/2025 190 Rupture [...] No Shoulder Dystocia Shoulder dystocia present?: No [place] Delivery Time head delivered: 02/12/2025 11:30:00 date/time: [...] pressure, requesting cervical exam SVE FHT: 145/mod/-accel/-decel [place] q2-3min IOL -Latent labor, unchanged exam. FSE/IUPC [...] accurate assessment, patient amenable. SVE FHT: 150/mod/+accel/-decel [place] q2-3min Latent labor, unchanged exam. FSE placed Continue pitocin per protocol. S/p AROM @ 1900 CEFM, currently Cat I Epidural infusing Fide Deleon MD, PGY-2 Requesting cervical exam. Also feels like baby flipped and wants to rescan for presentation. SVE 4/80/-2 FHT: 150/mod/+accel/-decel [place] q2-3min Latent labor Cephalic on BSUS Continue pitocin per protocol. S/p AROM @ 1900 CEFM, currently Cat I Epidural infusing Fide Deleon MD, PGY-2 Feeling more pressure with contractions, requesting cervical exam SVE 4/70/-3, unchanged from prior FHT: 145/mod/+accel/-decel [place] q2-3min Continue pitocin per protocol. S/p AROM @ 1900 CEFM, currently Cat I Epidural infusing Fide Deleon MD, PGY-2 To bedside for AROM. BSUS cephalic. head was palpated w/o other presenting parts. AROM for clear fluid with fundal pressure. SVE 4/70/-3, unchanged from prior FHT: 140/mod/+accel/-decel [place] irregular, q2-3min Continue pitocin per protocol CEFM, currently Cat I Epidural infusing S/p AROM for clear IUPC placed to monitor contractions Seen & Discussed with Dr. Motta, PGY4 Fide Deleon MD, PGY-2 To bedside for cervical exam at patient request. Pitocin has been restarted. Patient feeling nauseous and flushed and feels like her sugar is low. SVE /-3, unchanged from prior FHT: 140/mod/+accel/-decel [place] irregular, q1-2min BG 72 Continue pitocin per [...] BMI 52.53 kg/m SVE: /-3 FHT: 145/moderate/+accels/-deccels [place]: q 2 mins A/P: Patient requesting pause [...] readdress Fide Deleon MD, PGY-2 Labor induction staff antisubmarine officer at bedside to rescan for presentation as fetus previously found to be oblique. After draining bladder with taveras catheter placement and position changes, fetus now cephalic on BSUS. CRB and Cyto#1 placed at that time. For second dose in 3 hours if CRB still in situ, FHR reassuring and contractions aren't too frequent. PCN started for GBS unk. FHR: 140/mod/+accel/-decel [place]: no contractions D/w Dr. Hilda Tucker MD, [...] on insulin drip while eating Contractions - [place]: irregular but difficult to trace pattern d/t [...] Deleon MD, PGY-2 documented in this encounter [facility] Work Phone: 02-15-2025 Plan of care note [...] and given to patient, all questions answered. [facility] Work Phone: 02-15-2025 Hospital Discharge instructions Myriam [...] POST- Warning Signs documented in this encounter [facility] Work Phone: 02-15-2025 Plan of care note Problem: Goal: Experiences normal course Outcome: Progressing Goal: Appropriate maternal - bonding Outcome: Progressing Goal: Establish and maintain infant feeding pattern for adequate nutrition Outcome: Progressing Goal: No s/sx infection Outcome: Progressing Goal: No s/sx of hemorrhage Outcome: Progressing Goal: Minimal s/sx of HDP and BP<160/110 Outcome: Progressing [facility] 02-14-2025 Obstetrics Note Eligibility Counselor Note Recommendations/Summary Attempted to see mother to discuss breast feeding/pumping. Mother not in room, letter left. [facility] 02-14-2025 History of Present illness Narrative Progress [...] nightly, atarax PRN for anxiety -Established with [facility] during had weekly visits, will call [...] Assessment & Plan Severe preeclampsia, third trimester ([facility]) Problems (from 12/23/24 to present) Problem Noted Diagnosed Resolved Severe preeclampsia, third trimester ([facility]) 02/08/2025 by PRABHA Jules No Priority: Medium History of loop electrosurgical excision procedure (LEEP) of cervix affecting in second trimester 01/08/2025 by Paulette Romero MD No Priority: Medium headache in third trimester ([facility]) 01/08/2025 by Paulette Romero MD No Priority: Medium Overview Signed 01/15/2025 12:27 PM by Veena Duvall MD Headches starting to worsen around 25 wks til present. Assoc w/ floaters over last few days. No hx of migraines. S/p triage visit 01/14, improved with meds and normotensive so discharged home. 32 weeks gestation of ([facility]) 01/01/2025 by Ramirez Tucker MD No [...] views. Biopsied. History of HELLP syndrome, currently ([facility]) 01/01/2025 by Ramirez Tucker MD No Priority: Medium Overview Signed 01/01/2025 3:27 PM by Ramirez Tucker MD Reports hx of HELLP in P5 c/b convulsions. Underwent EEG monitoring that was unremarkable for seizure activity Depression affecting in third trimester, antepartum ([facility]) 01/01/2025 by Ramirez Tucker MD No Priority: Medium Overview Addendum 01/22/2025 9:53 AM by Veena Duvall MD With associated anxiety. On Doxepin daily and prn Valium. [facility] at [facility] Gestational hypertension, third trimester ([facility]) 12/25/2024 by Paulette Torrez MD No Priority: Medium Overview Addendum 02/04/2025 11:51 PM by Ramirez uTcker MD Reports h/o cHTN prior to P1 , resolved after Patient reporting h/o preeclampsia x3 and HELLP vs eclampsia in most recent , reporting concern for seizures. Received care for previous pregnancies in [place] and reporting that she is declines release [...] be initiated on an oral anti-hypertensive. [x] [id number] [x] BP cuff ordered and education provided [x] Baseline preE labs: wnl (12/2024), neg 01/08, P:C 0.27 [x] Urine P:C: 0.27 (12/2024) [] Q3 week growth US: EFW 96%, AC 93% (01/15) [] Twice weekly testing w/ alternating BPPs and NSTs [x] Delivery timing and plan: 37.0 wga Insulin controlled gestational diabetes mellitus (GDM) in third trimester ([facility]) 12/25/2024 by Paulette Torrez MD No [...] Hyperglycemia in ([facility]HS-HCC) 12/23/2024 by Celena Solis BARREL SCRAPER-DESKTOP SPECIALIST 01/01/2025 by Ramirez Tucker MD Priority: Medium [...] Vitals stable All questions and concerns address [place] Feeding /pumping encouraged consult PRN Contraception none [...] -2 Presentation: Vertex (confirmed by BSUS by [facility]) Method: Manual OB Examiner: Angel Thomas Assessment [...] Assessment & Plan Severe preeclampsia, third trimester ([facility]) Problems (from 12/23/24 to present) Problem Noted Diagnosed Resolved Severe preeclampsia, third trimester ([facility]) 02/08/2025 by Dhara Bautista APRN-DESKTOP SPECIALIST No Priority: Medium Polyhydramnios in third trimester ([facility]) 01/22/2025 by Veena Duvall MD No Priority: Medium Overview Addendum 01/29/2025 1:53 PM by Veena Duvall MD SERENA 27 on 01/22 -> resolved on 01/29 US History of loop electrosurgical excision procedure (LEEP) of cervix affecting in second trimester 01/08/2025 by Paulette Romero MD No Priority: Medium headache in third trimester ([facility]) 01/08/2025 by Paulette Romero MD No Priority: Medium Overview Signed 01/15/2025 12:27 PM by Veena Duvall MD Headches starting to worsen around 25 wks til present. Assoc w/ floaters over last few days. No hx of migraines. S/p triage visit 01/14, improved with meds and normotensive so discharged home. 31 weeks gestation of ([facility]) 01/01/2025 by Ramirez Tucker MD No [...] views. Biopsied. History of HELLP syndrome, currently ([facility]) 01/01/2025 by Ramirez Tucker MD No Priority: Medium Overview Signed 01/01/2025 3:27 PM by Ramirez Tucker MD Reports hx of HELLP in P5 c/b convulsions. Underwent EEG monitoring that was unremarkable for seizure activity Depression affecting in third trimester, antepartum ([facility]) 01/01/2025 by Ramirez Tucker MD No Priority: Medium Overview Addendum 01/22/2025 9:53 AM by Veena Duvall MD With associated anxiety. On Doxepin daily and prn Valium. follows with Dr. Rasmussen at [facility] Gestational hypertension, third trimester ([facility]) 12/25/2024 by Paulette Torrez MD No Priority: Medium Overview Addendum 02/04/2025 11:51 PM by Ramirez Tucker MD Reports h/o cHTN prior to P1 , resolved after Patient reporting h/o preeclampsia x3 and HELLP vs eclampsia in most recent , reporting concern for seizures. Received care for previous pregnancies in [place] and reporting that she is declines release [...] be initiated on an oral anti-hypertensive. [x] [id number] [x] BP cuff ordered and education provided [x] Baseline preE labs: wnl (12/2024), neg 01/08, P:C 0.27 [x] Urine P:C: 0.27 (12/2024) [] Q3 week growth US: EFW 96%, AC 93% (01/15) [] Twice weekly testing w/ alternating BPPs and NSTs [x] Delivery timing and plan: 37.0 wga Insulin controlled gestational diabetes mellitus (GDM) in third trimester ([facility]) 12/25/2024 by Paulette [...] Boot Camp [x] MFM Consult completed [] [facility] 36 wk visit [] Serial growth [...] Hyperglycemia in ([facility]HS-HCC) 12/23/2024 by Celena Solis, BARREL SCRAPER-DESKTOP SPECIALIST 01/01/2025 by Ramirez Tucker MD Priority: Medium [...] is , with Accelerations, and a tracing. [place] reading: SKIN: normal coloration and turgor, no rashes NEUROLOGICAL: DTRs normal and symmetrical PSYCHOLOGICAL: awake and alert; oriented to person, place, and time Lab Review: Lab Results Component Value Date WBC 18.5 (H) 02/09/2025 HGB 10.6 (L) 02/09/2025 HCT 34.8 (L) 02/09/2025 PLT 265 02/09/2025 0 Lab Value Date/Time GRPBSTREP Culture in progress 02/08/2025 3842 A/P: Patient is a 33 y.o. at [...] give 37 units Lantus this AM per [facility] recs due to need for coverage [...] currently 01/12. Will continue treating - Per [facility], Patient will be for IOL tonight [...] treating until tonight when BMZ complete, per [facility] GDMA2 - Home regimen: NPH 62/62, [...] 120/ mod variability + accels/ - decels [place]: quiet Labs: Lab Results Component Value Date [...] consult pending Pt seen and discussed with [facility] Attending, Dr. [place]. Amanda Rivas MD [facility] Pager [phone] Assessment & Plan Severe preeclampsia, third trimester ([facility]) Cosigned by Earl Colorado MD at 02/11/2025 [...] To be seen and discussed with Dr. Canelo Deleon MD, PGY-2 Subjective NIELSEN is worse, [...] Psych: appropriate mood and affect FHT: 130/mod/+accel/-decel [place]: irregular contractions, as frequent as every 10 [...] Psych: appropriate mood and affect FHT: 125/mod/+accel/-decel [place]: no contractions Lab Data: Labs in chart [...] in the note. documented in this encounter [facility] Work Phone: 02-13-2025 Plan of care note [...] did make progress toward the following goals. [facility] Work Phone: 02-13-2025 Consult note Associated Order (s): IP CONSULT TO SOCIAL WORK The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 ultrasound of anatomy Gestational diabetes requiring insulin ([facility]) Abnormal maternal glucose tolerance, complicating , childbirth, or the puerperium, unspecified as to episode of care AMA (advanced maternal age) multigravida 35+ ([facility]) Obesity affecting ([facility]) documented in this encounter [facility] Work Phone: Evaluation note* Diagnosis Gestational hypertension, second trimester ([facility])- Primary 26 weeks gestation of ([facility])- Primary Insulin controlled gestational diabetes mellitus (GDM) in second trimester ([facility]) Gestational hypertension, second trimester ([facility]) Hyperglycemia in ([facility]) Crohn's disease with complication, unspecified gastrointestinal tract location Depression affecting in second trimester, antepartum ([facility]) Anxiety during in second trimester, antepartum ([facility]) headache in second trimester ([facility])- Primary Gestational hypertension, second trimester ([facility]) Insulin controlled gestational diabetes mellitus (GDM) in second trimester ([facility]) 27 weeks gestation of ([facility]) Gastroesophageal reflux disease without esophagitis Esophageal reflux Crohn's disease with complication, unspecified gastrointestinal tract location Gestational hypertension, second trimester ([facility]) documented in this encounter [facility] Work Phone: Evaluation note* Diagnosis 26 weeks gestation of ([facility])- Primary Insulin controlled gestational diabetes mellitus (GDM) in second trimester ([facility]) Gestational hypertension, second trimester ([facility]) Hyperglycemia in ([facility]) Crohn's disease with complication, unspecified gastrointestinal tract location Depression affecting in second trimester, antepartum ([facility]) Anxiety during in second trimester, antepartum ([facility]) headache in second trimester ([facility])- Primary Gestational hypertension, second trimester ([facility]) Insulin controlled gestational diabetes mellitus (GDM) in second trimester ([facility]) 27 weeks gestation of ([facility]) Gastroesophageal reflux disease without esophagitis Esophageal reflux Crohn's disease with complication, unspecified gastrointestinal tract location Screening, , for anatomic survey ([facility]) Encounter for anatomic survey Gestational hypertension ([facility]) Unspecified hypertension complicating , childbirth, or the puerperium, unspecified as to episode of care Obesity affecting ([facility]) Gestational diabetes mellitus (GDM) AMA (advanced maternal age) multigravida 35+ ([facility]) documented in this encounter [facility] Work Phone: Evaluation note* Diagnosis 26 weeks gestation of ([facility])- Primary Insulin controlled gestational diabetes mellitus (GDM) in second trimester ([facility]) Gestational hypertension, second trimester ([facility]) Hyperglycemia in ([facility]) Crohn's disease with complication, unspecified gastrointestinal tract location Depression affecting in second trimester, antepartum ([facility]) Anxiety during in second trimester, antepartum ([facility]) headache in second trimester ([facility])- Primary Gestational hypertension, second trimester ([facility]) Insulin controlled gestational diabetes mellitus (GDM) in second trimester ([facility]) 27 weeks gestation of ([facility]) Gastroesophageal reflux disease without esophagitis Esophageal reflux Crohn's disease with complication, unspecified gastrointestinal tract location Screening, , for anatomic survey ([facility]) Encounter for anatomic survey Obesity affecting in third trimester ([facility]) Gestational diabetes mellitus (GDM) requiring insulin ([facility]) Gestational hypertension w/o significant proteinuria in 3rd trimester ([facility]) 28 weeks gestation of ([facility])- Primary Gestational hypertension, second trimester ([facility]) Insulin controlled gestational diabetes mellitus (GDM) in second trimester ([facility]) Anxiety during in second trimester, antepartum ([facility]) History of HELLP syndrome, currently ([facility]) with other poor obstetric history Depression affecting in second trimester, antepartum ([facility]) History of loop electrosurgical excision procedure (LEEP) of cervix affecting in second trimester ([facility]) headache in second trimester ([facility]) Headache in , antepartum ([facility]) psychosis (Multi) Mental disorders of mother, complicating , childbirth, or the puerperium, unspecified as to episode of care documented in this encounter [facility] Work Phone: Evaluation note* Diagnosis 26 weeks gestation of ([facility] [facility] Primary Insulin controlled gestational diabetes mellitus (GDM) in second trimester ([facility]) Gestational hypertension, second trimester ([facility]) Hyperglycemia in ([facility]) Crohn's disease with complication, unspecified gastrointestinal tract location Depression affecting in second trimester, antepartum ([facility]) Anxiety during in second trimester, antepartum ([facility]) headache in second trimester ([facility])- Primary Gestational hypertension, second trimester ([facility]) Insulin controlled gestational diabetes mellitus (GDM) in second trimester ([facility]) 27 weeks gestation of ([facility]) Gastroesophageal reflux disease without esophagitis Esophageal reflux Crohn's disease with complication, unspecified gastrointestinal tract location 28 weeks gestation of ([facility])- Primary Gestational hypertension, second trimester ([facility]) Insulin controlled gestational diabetes mellitus (GDM) in second trimester ([facility]) Anxiety during in second trimester, antepartum ([facility]) History of HELLP syndrome, currently ([facility]) with other poor obstetric history Depression affecting in second trimester, antepartum ([facility]) History of loop electrosurgical excision procedure (LEEP) of cervix affecting in second trimester ([facility]) headache [facility] second trimester ([facility]) Headache in , antepartum ([facility]) psychosis (Multi) Mental disorders of mother, complicating , childbirth, or the puerperium, unspecified as to episode of care Gestational hypertension, second trimester ([facility]) Insulin controlled gestational diabetes mellitus (GDM) in third trimester ([facility]) Gestational hypertension w/o significant proteinuria in 3rd trimester ([facility]) Gestational hypertension, third trimester ([facility] Primary Insulin controlled gestational diabetes mellitus (GDM) in third trimester ([facility]) 29 weeks gestation of ([facility]) Depression affecting in second trimester, antepartum ([facility]) headache in third trimester ([facility]) Polyhydramnios in third trimester complication, single or unspecified fetus ([facility]) documented in this encounter [facility] Work Phone: Evaluation note* Diagnosis 26 weeks gestation of ([facility])- Primary Insulin controlled gestational diabetes mellitus (GDM[facility] in second trimester ([facility]) Gestational hypertension, second trimester ([facility]) Hyperglycemia in ([facility]) Crohn's disease with complication, unspecified gastrointestinal tract location Depression affecting in second trimester, antepartum ([facility]) Anxiety during in second trimester, antepartum ([facility]) headache in second trimester ([facility])- Primary Gestational hypertension, second trimester ([facility]) Insulin controlled gestational diabetes mellitus (GDM) in second trimester ([facility]) 27 weeks gestation of ([facility]) Gastroesophageal reflux disease without esophagitis Esophageal reflux Crohn's disease with complication, unspecified gastrointestinal tract location 28 weeks gestation of ([facility])- Primary Gestational hypertension, second trimester ([facility]) Insulin controlled gestational diabetes mellitus (GDM[facility] in second trimester ([facility]) Anxiety during in second trimester, antepartum ([facility]) History of HELLP syndrome, currently ([facility]) with other poor obstetric history Depression affecting in second trimester, antepartum ([facility]) History of loop electrosurgical excision procedure (LEEP) of cervix affecting in second trimester ([facility]) headache [facility] second trimester ([facility]) Headache in , antepartum ([facility]) psychosis (Multi) Mental disorders of mother, complicating , childbirth, or the puerperium, unspecified as to episode of care Gestational hypertension, third trimester ([facility])- Primary Insulin controlled gestational diabetes mellitus (GDM) in third trimester ([facility]) 29 weeks gestation of ([facility]) Depression affecting in second trimester, antepartum ([facility]) headache in third trimester ([facility]) Polyhydramnios in third trimester complication, single or unspecified fetus ([facility]) Gestational hypertension, second trimester ([facility]) Insulin controlled gestational diabetes mellitus (GDM) in third trimester ([facility]) Gestational hypertension, third trimester ([facility])- Primary Insulin controlled gestational diabetes mellitus (GDM) in third trimester ([facility]) Depression affecting in third trimester, antepartum ([facility]) 30 weeks gestation of ([facility]) Polyhydramnios in third trimester complication, single or unspecified fetus ([facility]) History of HELLP syndrome, currently ([facility]) with other poor obstetric history History of loop electrosurgical excision procedure (LEEP) of cervix affecting in second trimester ([facility]) headache [facility] third trimester ([facility]) Insulin controlled gestational diabetes mellitus (GDM) in second trimester ([facility]) documented in this encounter [facility] Work Phone: Evaluation note* Diagnosis 26 weeks gestation of ([facility])- Primary Insulin controlled gestational diabetes mellitus (GDM) in second trimester ([facility]) Gestational hypertension, second trimester ([facility]) Hyperglycemia in ([facility]) Crohn's disease with complication, unspecified gastrointestinal tract location Depression affecting in second trimester, antepartum ([facility]) Anxiety during in second trimester, antepartum headache in second trimester ([facility])- Primary Gestational hypertension, second trimester ([facility]) Insulin controlled gestational diabetes mellitus (GDM) in second trimester ([facility]) 27 weeks gestation of ([facility]) Gastroesophageal reflux disease without esophagitis Esophageal reflux Crohn's disease with complication, unspecified gastrointestinal tract location 28 weeks gestation of ([facility])- Primary Gestational hypertension, second trimester ([facility]) Insulin controlled gestational diabetes mellitus (GDM) in second trimester ([facility]) Anxiety during in second trimester, antepartum History of HELLP syndrome, currently ([facility]) with other poor obstetric history Depression affecting in second trimester, antepartum ([facility]) History of loop electrosurgical excision procedure (LEEP) of cervix affecting in second trimester headache in second trimester ([facility]) Headache in , antepartum ([facility]) psychosis (Multi) Mental disorders of mother, complicating , childbirth, or the puerperium, unspecified as to episode of care Gestational hypertension, third trimester ([facility])- Primary Insulin controlled gestational diabetes mellitus (GDM) in third trimester ([facility]) 29 weeks gestation of ([facility]) Depression affecting in second trimester, antepartum ([facility]) headache in third trimester ([facility]) Polyhydramnios in third trimester complication, single or unspecified fetus ([facility]) Gestational hypertension, third trimester ([facility])- Primary Insulin controlled gestational diabetes mellitus (GDM) in third trimester ([facility]) Depression affecting in third trimester, antepartum ([facility]) 30 weeks gestation of ([facility]) Polyhydramnios in third trimester complication, single or unspecified fetus ([facility]) History of HELLP syndrome, currently ([facility]) with other poor obstetric history History of loop electrosurgical excision procedure (LEEP) of cervix affecting in second trimester headache in third trimester ([facility]) Insulin controlled gestational diabetes mellitus (GDM) in second trimester ([facility]) Gestational hypertension, second trimester ([facility]) Insulin controlled gestational diabetes mellitus (GDM) in third trimester ([facility]) Gestational hypertension w/o significant proteinuria in 3rd trimester ([facility]) Gestational hypertension, third trimester ([facility])- Primary Insulin controlled gestational diabetes mellitus (GDM) in third trimester ([facility]) 32 weeks gestation of ([facility]) Crohn's disease with complication, unspecified gastrointestinal tract location History of HELLP syndrome, currently ([facility]) with other poor obstetric history Depression affecting in third trimester, antepartum ([facility]) History of loop electrosurgical excision procedure (LEEP) of cervix affecting in second trimester headache in third trimester ([facility]) Polyhydramnios in third trimester complication, single or unspecified fetus ([facility]) documented in this encounter [facility] Work Phone: Evaluation note* Diagnosis 26 weeks gestation of ([facility])- Primary Insulin controlled gestational diabetes mellitus (GDM) in second trimester ([facility]) Gestational hypertension, second trimester ([facility]) Hyperglycemia in ([facility]) Crohn's disease with complication, unspecified gastrointestinal tract location Depression affecting in second trimester, antepartum ([facility]) Anxiety during in second trimester, antepartum headache in second trimester ([facility] Primary Gestational hypertension, second trimester ([facility]) Insulin controlled gestational diabetes mellitus (GDM) in second trimester ([facility]) 27 weeks gestation of ([facility]) Gastroesophageal reflux disease without esophagitis Esophageal reflux Crohn's disease with complication, unspecified gastrointestinal tract location 28 weeks gestation of ([facility])- Primary Gestational hypertension, second trimester ([facility]) Insulin controlled gestational diabetes mellitus (GDM) in second trimester ([facility]) Anxiety during in second trimester, antepartum History of HELLP syndrome, currently ([facility]) with other poor obstetric history Depression affecting in second trimester, antepartum ([facility]) History of loop electrosurgical excision procedure (LEEP) of cervix affecting in second trimester headache in second trimester ([facility]) Headache in , antepartum ([facility]) psychosis (Multi) Mental disorders of mother, complicating , childbirth, or the puerperium, unspecified as to episode of care Gestational hypertension, third trimester ([facility])- Primary Insulin controlled gestational diabetes mellitus (GDM) in third trimester ([facility]) 29 weeks gestation of ([facility]) Depression affecting in second trimester, antepartum ([facility]) headache in third trimester ([facility]) Polyhydramnios in third trimester complication, single or unspecified fetus ([facility]) Gestational hypertension, third trimester ([facility] Primary Insulin controlled gestational diabetes mellitus (GDM) in third trimester ([facility]) Depression affecting in third trimester, antepartum ([facility]) 30 weeks gestation of ([facility]) Polyhydramnios in third trimester complication, single or unspecified fetus ([facility]) History of HELLP syndrome, currently ([facility]) with other poor obstetric history History of loop electrosurgical excision procedure (LEEP) of cervix affecting in second trimester headache in third trimester ([facility]) Insulin controlled gestational diabetes mellitus (GDM) in second trimester ([facility]) Gestational hypertension, third trimester ([facility] Primary Insulin controlled gestational diabetes mellitus (GDM) in third trimester ([facility]) 32 weeks gestation of ([facility]) Crohn's disease with complication, unspecified gastrointestinal tract location History of HELLP syndrome, currently ([facility]) with other poor obstetric history Depression affecting in third trimester, antepartum ([facility]) History of loop electrosurgical excision procedure (LEEP) of cervix affecting in second trimester headache in third trimester ([facility]) Polyhydramnios in third trimester complication, single or unspecified fetus ([facility]) Severe preeclampsia, third trimester ([facility] Primary Severe preeclampsia, third trimester ([facility]) care following vaginal delivery ([facility]) Depression affecting in third trimester, antepartum ([facility]) Gastroesophageal reflux disease, unspecified whether esophagitis present documented in this encounter [facility] Work Phone: Evaluation note* Diagnosis 26 weeks gestation of ([facility])- Primary Insulin controlled gestational diabetes mellitus (GDM) in second trimester ([facility]) Gestational hypertension, second trimester ([facility]) Hyperglycemia in ([facility]) Crohn's disease with complication, unspecified gastrointestinal tract location Depression affecting in second trimester, antepartum ([facility]) Anxiety during in second trimester, antepartum headache in second trimester ([facility])- Primary Gestational hypertension, second trimester ([facility]) Insulin controlled gestational diabetes mellitus (GDM) in second trimester ([facility]) 27 weeks gestation of ([facility]) Gastroesophageal reflux disease without esophagitis Esophageal reflux Crohn's disease with complication, unspecified gastrointestinal tract location 28 weeks gestation of ([facility])- Primary Gestational hypertension, second trimester ([facility]) Insulin controlled gestational diabetes mellitus (GDM) in second trimester ([facility]) Anxiety during in second trimester, antepartum History of HELLP syndrome, currently ([facility]) with other poor obstetric history Depression affecting in second trimester, antepartum ([facility]) History of loop electrosurgical excision procedure (LEEP) of cervix affecting in second trimester headache in second trimester ([facility]) Headache in , antepartum ([facility]) psychosis (Multi) Mental disorders of mother, complicating , childbirth, or the puerperium, unspecified as to episode of care Gestational hypertension, third trimester ([facility])- Primary Insulin controlled gestational diabetes mellitus (GDM) in third trimester ([facility]) 29 weeks gestation of ([facility]) Depression affecting in second trimester, antepartum ([facility]) headache in third trimester ([facility]) Polyhydramnios in third trimester complication, single or unspecified fetus ([facility]) Gestational hypertension, third trimester ([facility] Primary Insulin controlled gestational diabetes mellitus (GDM) in third trimester ([facility]) Depression affecting in third trimester, antepartum ([facility]) 30 weeks gestation of ([facility]) Polyhydramnios in third trimester complication, single or unspecified fetus ([facility]) History of HELLP syndrome, currently ([facility]) with other poor obstetric history History of loop electrosurgical excision procedure (LEEP) of cervix affecting in second trimester headache in third trimester ([facility]) Insulin controlled gestational diabetes mellitus (GDM) in second trimester ([facility]) Gestational hypertension, third trimester ([facility] Primary Insulin controlled gestational diabetes mellitus (GDM) in third trimester ([facility]) 32 weeks gestation of ([facility]) Crohn's disease with complication, unspecified gastrointestinal tract location History of HELLP syndrome, currently ([facility]) with other poor obstetric history Depression affecting in third trimester, antepartum ([facility]) History of loop electrosurgical excision procedure (LEEP) of cervix affecting in second trimester headache in third trimester ([facility]) Polyhydramnios in third trimester complication, single or unspecified fetus ([facility]) Severe preeclampsia, third trimester ([facility])- Primary Insulin controlled gestational diabetes mellitus (GDM) in second trimester ([facility]) documented in this encounter [facility] Work Phone: Evaluation note* Diagnosis 26 weeks gestation of ([facility])- Primary Insulin controlled gestational diabetes mellitus (GDM) in second trimester ([facility]) Gestational hypertension, second trimester ([facility]) Hyperglycemia in ([facility]) Crohn's disease with complication, unspecified gastrointestinal tract location Depression affecting in second trimester, antepartum ([facility]) Anxiety during in second trimester, antepartum headache in second trimester ([facility])- Primary Gestational hypertension, second trimester ([facility]) Insulin controlled gestational diabetes mellitus (GDM) in second trimester ([facility]) 27 weeks gestation of ([facility]) Gastroesophageal reflux disease without esophagitis Esophageal reflux Crohn's disease with complication, unspecified gastrointestinal tract location Gestational hypertension, third trimester ([facility] Primary Insulin controlled gestational diabetes mellitus (GDM) in third trimester ([facility]) 29 weeks gestation of ([facility]) Depression affecting in second trimester, antepartum ([facility]) headache in third trimester ([facility]) Polyhydramnios in third trimester complication, single or unspecified fetus ([facility]) Gestational hypertension, third trimester ([facility])- Primary Insulin controlled gestational diabetes mellitus (GDM) in third trimester ([facility]) Depression affecting in third trimester, antepartum ([facility]) 30 weeks gestation of ([facility]) Polyhydramnios in third trimester complication, single or unspecified fetus ([facility]) History of HELLP syndrome, currently ([facility]) with other poor obstetric history History of loop electrosurgical excision procedure (LEEP) of cervix affecting in second trimester headache in third trimester ([facility]) Insulin controlled gestational diabetes mellitus (GDM) in second trimester ([facility]) Benign essential HTN- [...] Anxiety state, unspecified documented in this encounter [facility] Work Phone: Evaluation note* Diagnosis 26 weeks gestation of ([facility])- Primary Insulin controlled gestational diabetes mellitus (GDM) in second trimester ([facility]) Gestational hypertension, second trimester ([facility]) Hyperglycemia in ([facility]) Crohn's disease with complication, unspecified gastrointestinal tract location Depression affecting in second trimester, antepartum ([facility]) Anxiety during in second trimester, antepartum headache in second trimester ([facility])- Primary Gestational hypertension, second trimester ([facility]) Insulin controlled gestational diabetes mellitus (GDM) in second trimester ([facility]) 27 weeks gestation of ([facility]) Gastroesophageal reflux disease without esophagitis Esophageal reflux Crohn's disease with complication, unspecified gastrointestinal tract location Gestational hypertension, third trimester ([facility])- Primary Insulin controlled gestational diabetes mellitus (GDM) in third trimester ([facility]) 29 weeks gestation of ([facility]) Depression affecting in second trimester, antepartum ([facility]) headache in third trimester ([facility]) Polyhydramnios in third trimester complication, single or unspecified fetus ([facility]) Gestational hypertension, third trimester ([facility])- Primary Insulin controlled gestational diabetes mellitus (GDM) in third trimester ([facility]) Depression affecting in third trimester, antepartum ([facility]) 30 weeks gestation of ([facility]) Polyhydramnios in third trimester complication, single or unspecified fetus ([facility]) History of HELLP syndrome, currently ([facility]) with other poor obstetric history History of loop electrosurgical excision procedure (LEEP) of cervix affecting in second trimester headache in third trimester ([facility]) Insulin controlled gestational diabetes mellitus (GDM) in second trimester ([facility]) Encounter for visit- Primary History of gestational diabetes Personal history of other genital system and obstetric disorders Counseling for initiation of control method History of pre-eclampsia Bilateral lower extremity edema documented in this encounter [facility] Work Phone: Evaluation note* Diagnosis 26 weeks gestation of ([facility])- Primary Insulin controlled gestational diabetes mellitus (GDM) in second trimester ([facility]) Gestational hypertension, second trimester ([facility]) Hyperglycemia in ([facility]) Crohn's disease with complication, unspecified gastrointestinal tract location Depression affecting in second trimester, antepartum ([facility]) Anxiety during in second trimester, antepartum headache in second trimester ([facility])- Primary Gestational hypertension, second trimester ([facility]) Insulin controlled gestational diabetes mellitus (GDM) in second trimester ([facility]) 27 weeks gestation of ([facility]) Gastroesophageal reflux disease without esophagitis Esophageal reflux Crohn's disease with complication, unspecified gastrointestinal tract location Gestational hypertension, third trimester ([facility])- Primary Insulin controlled gestational diabetes mellitus (GDM) in third trimester ([facility]) 29 weeks gestation of ([facility]) Depression affecting in second trimester, antepartum ([facility]) headache in third trimester ([facility]) Polyhydramnios in third trimester complication, single or unspecified fetus ([facility]) Gestational hypertension, third trimester ([facility])- Primary Insulin controlled gestational diabetes mellitus (GDM) in third trimester ([facility]) Depression affecting in third trimester, antepartum ([facility]) 30 weeks gestation of ([facility]) Polyhydramnios in third trimester complication, single or unspecified fetus ([facility]) History of HELLP syndrome, currently ([facility]) with other poor obstetric history History of loop electrosurgical excision procedure (LEEP) of cervix affecting in second trimester headache in third trimester ([facility]) Insulin controlled gestational diabetes mellitus (GDM) in second trimester ([facility]) Encounter for visit- Primary History of gestational diabetes Personal history of other genital system and obstetric disorders Counseling for initiation of control method History of pre-eclampsia Bilateral lower extremity edema Type 2 diabetes mellitus without complication, with long-term current use of insulin- Primary Benign essential HTN Other insomnia Healthcare maintenance Hypomagnesemia Disorders of magnesium metabolism documented in this encounter [facility] Work Phone: Hospital Discharge instructions Additional Instructions CT scan negative. Labs are all stable. Hemoglobin 12.6. Monitor symptoms. Follow-up with GI as an outpatient. Return if any worsening symptoms.[facility] Work Phone: Hospital Discharge instructions* Attachments The following attachments cannot be sent through Care Everywhere. * Managing acute pain at home ([place]) * Deciding to breastfeed ([place]) * Gestational diabetes ([place]) [facility]charge [facility]* Attachments The following attachments cannot be sent through Care Everywhere. * Managing acute pain at home ([place]) * Deciding to breastfeed ([place]) * Gestational diabetes ([place]) [facility] Discharge instructions* Attachments The following attachments cannot be sent through Care Everywhere. * Managing acute pain at home ([place]) * Deciding to breastfeed ([place]) * Gestational diabetes ([place]) [facility]* Attachments The following attachments cannot be sent through Care Everywhere. * Managing acute pain at home ([place]) * Deciding to breastfeed ([place]) * Gestational diabetes ([place]) [facility] Discharge instructions* Attachments The following attachments cannot be sent through Care Everywhere. * Managing acute pain at home ([place]) * Deciding to breastfeed ([place]) * Gestational diabetes ([place]) [facility]: Hospital Discharge instructions* Attachments The following attachments cannot be sent through Care Everywhere. * Managing acute pain at home ([place]) * Deciding to breastfeed ([place]) * Gestational diabetes ([place]) [facility]: Hospital Discharge instructions* Attachments The following attachments cannot be sent through Care Everywhere. * Managing acute pain at home ([place]) * Deciding to breastfeed ([place]) * Gestational diabetes ([place]) [facility] Work [facility]: Hospital Discharge instructions* Attachments The following attachments cannot be sent through Care Everywhere. * Managing acute pain at home ([place]) * Deciding to breastfeed ([place]) * Gestational diabetes ([place]) [facility]: reason for visit Narrative* Imaging (Routine) - Pending Review Specialty Diagnoses / Procedures Referred By Contac t Referred To Contact Radiology Diagnoses Encounter for follow-up ultrasound of anatomy Gestational diabetes requiring insulin ([facility]) AMA (advanced maternal age) multigravida 35+ ([facility]HS-HCC) Obesity affecting ([facility]-H[facility]) Procedures US OB follow UP transabdominal approach US biophysical profile [place] [address] [place] [address] Phone: tel: fax: Referral ID Status Reason Start Date Expiration Date Visits Requested Visits Authorized [id number] Pending Review Perform Procedure 12/25/2024 12/25/2025 1 1 [facility] Work Phone: reason for visit Narrative* Imaging (Routine) - Pending Review Specialty Diagnoses / Procedures Referred By Britta pathak Referred To Contact Radiology Diagnoses Gestational hypertension ([facility]HS-HCC) Obesity affecting ([facility]) Gestational diabetes mellitus (GDM) AMA (advanced maternal age) multigravida 35+ ([facility]HS-HCC) Procedures US OB limited 1+ fetuses [place] [address] [place] [address] Phone: tel: fax: Referral ID Status Reason Start Date Expiration Date Visits Requested Visits Authorized [id number] Pending Review Perform Procedure 12/23/2024 12/23/2025 1 1 [facility] Work Phone: reason for visit Narrative* Imaging (Routine) - Pending Review Specialty Diagnoses / Procedures Referred By Contac t Referred To Contact Radiology Diagnoses Obesity affecting in third trimester ([facility]HS-HCC) Gestational diabetes mellitus (GDM) requiring insulin ([facility]-HCC) Gestational hypertension w/o significant proteinuria in 3rd trimester ([facility]) Procedures US OB follow UP transabdominal approach US biophysical profile wo [place] [address] [place] [address] Phone: tel: fax: Referral ID Status Reason Start Date Expiration Date Visits Requested Visits Authorized [id number] Pending Review Perform Procedure 01/15/2025 01/15/2026 1 1 [facility] Work Phone: Remijx for visit Narrative* Imaging (Routine) - Pending Review Specialty Diagnoses / Procedures Referred By Contac t Referred To Contact Radiology Diagnoses Insulin controlled gestational diabetes mellitus (GDM) in third trimester ([facility]) Gestational hypertension w/o significant proteinuria in 3rd trimester ([facility]-HCC) Procedures US OB limited 1+ fetuses US biophysical profile wo non stress testing Jose Guadalupe Gupta MD [address] [facility] [employer] [place] [address] Phone: tel: fax: Referral ID Status Reason Start Date Expiration Date Visits Requested Visits Authorized [id number] Pending Review Perform Procedure 01/09/2025 01/09/2026 1 1 [facility] Work Phone: reason for visit Narrative* Imaging (Routine) - Pending Review Specialty Diagnoses / Procedures Referred By Contac t Referred To Contact Radiology Diagnoses Gestational hypertension, second trimester ([facility]) Insulin controlled gestational diabetes mellitus (GDM) in third trimester ([facility]) Procedures US OB limited 1+ fetuses US biophysical profile wo non stress testing Jose Guadalupe Gupta MD [address] [facility] [employer] [place] [address] Phone: tel: fax: Referral ID Status Reason Start Date Expiration Date Visits Requested Visits Authorized [id number] Pending Review Perform Procedure 01/09/2025 01/09/2026 1 1 [facility] Work Phone: reason for visit Narrative* Imaging [...] Jose Guadalupe Gupta MD [address] [employer] [place] [address] Phone: tel: fax: Referral ID Status Reason Start Date Expiration Date Visits Requested Visits Authorized [id number] Pending Review Perform Procedure 01/09/2025 01/09/2026 1 1 [facility] Work Phone: Summary Purpose Family History No [...] Will No August 18 4:21pm Power of Robotics Mechanic No August 18, 2022 4:21pm Advance Directive Response Recorded Date/ Time Living Will No October 26 10:59am Power of Robotics Mechanic No October 26, 2022 10:59am Advance Directive Response Recorded Date/ Time Living Will No December 14 9:19pm Power of Robotics Mechanic No December 14, 2022 9:19pm Advance Directive Response Recorded Date/ Time Living Will No January 21, 2023 4:03pm Power of Robotics Mechanic No January 21 4:03pm Advance Directive Response Recorded Date/ Time Living Will No June 05, 2023 5:42am Power of Robotics Mechanic No June 05 5:42am Advance Directive Response Recorded Date/ Time Living Will No October 25, 4:32pm Power of Robotics Mechanic No October 25, 2023 4:32pm Advance Directive Response Recorded Date/ Time Living Will No November 17 2:59am Power of Robotics Mechanic No November 17, 2023 2:59am Advance Directive Response Recorded Date/ Time Living Will No December 05 7:53am Power of Robotics Mechanic No December 05, 2023 7:53am Advance Directive Response Recorded Date/ Time Living Will No February 22, 2024 3:50pm Power of Robotics Mechanic No February 21 3:50pm Date Activated Date [...] original. DISCHARGE SUMMARY Patient: Dayna Steward Account: [id number] Admitted: 09/03/2018 Discharge Date/Time: No discharge date for patient encounter. Clinical Summary [facility] DISCHARGE SUMMARY Dayna Steward Admitted: 09/03/2018 Discharge [...] Physician(s) Follow Up: Raghu Lindsey MD [address] [facility] [address] Follow up You have been scheduled to followup with LLII Barroso at our [facility] office to discuss UTI prevention for 10/02/18 at 1:45pm. Arrive at 1:15pm. Please bring insurance card and photo ID. Freddie Tinoco PA-C [address] [place] [phone] Schedule an appointment as soon as possible for a visit in 1 week(s) [facility] [address] [place] [id number] Follow up call with questions related [...] NOTE Patient Name: Dayna Tinsley MR #: [id number] Assessment and Plan: 1. Pyelonephritis - E [...] 5 mg 5 mg Oral Daily Chase aPrham MD 5 mg at 09/08/18 0927 benzonatate (TESSALON) capsule 100 mg 100 mg Oral TID PRN Arianne Vargas MD 100 mg at 09/06/18 0841 cefdinir (OMNICEF) capsule 300 mg 300 mg Oral Q12H [facility] Arianne Vargas MD dronabinol (MARINOL) capsule 5 [...] solution 3 mL 3 mL Inhalation Q6H [facility] Noa Soria MD 3 mL at 09/08/18 [...] NOTE Patient Name: Dayna Tinsley MR #: [id number] Assessment and Plan: 1. Pyelonephritis - E [...] (premix) 2,000 mg Intravenous Q8H Luisa Vasques [facility],PharmD Stopped at 09/07/18 0631 dronabinol (MARINOL) capsule [...] solution 3 mL 3 mL Inhalation Q6H [facility] Jairo Soria MD 3 mL at 09/07/18 0325 ketorolac (TORADOL) injection 30 mg 30 mg Intravenous Q6H PRN Arianne Vargas MD 30 mg at 09/06/18 2331 naloxone (NARCAN) injection 0.1 mg 0.1 mg Intravenous PRN Chase Parham MD naloxone (NARCAN) injection 0.4 mg 0.4 mg Intravenous PRN Chase Parham MD prochlorperazine (COMPAZINE) injection 5 mg 5 mg Intravenous Q4H Felecia Arteaga, DESKTOP SPECIALIST 5 mg at 09/07/18 0932 QUEtiapine (SEROQUEL) [...] NOTE Patient Name: Dayna Tinsley MR #: [id number] Assessment/Plan: Acute pyelonephritis Assessment & Plan B/L pyelo with no evidence of obstruction or stones on CT Afeb last 24 hours. No UCx results available. No urinary complaints. No surgical intervention required. We will sign off F/u on at our [facility] office to discuss UTI prevention for 10/02/18 [...] about her keiko and being brought up Pres[employer]ian. She shared some challenging and difficult circumstances in her immediate family that has led to loss and tragedy. Pt. Visit interrupted by vocera call and I stated I would return to the pt's room shortly RECOMMENDATION: Harry Wynne Staff senior systems developer [phone] 09/06/18 1800 Clinical Encounter Type Visit Type Non Crisis Non Crisis Visit Rounding Visited With Patient Visit Length (minutes) 16-30 Referral From Patient Patient Spiritual Assessment Spiritual Assessed Yes Alevism Affiliation Arianne Bates MD - 09/06/2018 3:37 [...] NOTE Patient Name: Dayna Tinsley MR #: [id number] Assessment and Plan: 1. Pyelonephritis - E [...] (premix) 2,000 mg Intravenous Q8H Luisa Vasques [facility],PharmD Stopped at 09/06/18 0552 dronabinol (MARINOL) capsule [...] mg 5 mg Intravenous Q4H Felecia Arteaga, DESKTOP SPECIALIST 5 mg at 09/06/18 1050 QUEtiapine (SEROQUEL) tablet 200 mg 200 mg Oral BID Chase Parham MD 200 mg at 09/06/18 0841 scopolamine (TRANSDERM-SCOP) 1 mg over 3 days patch 1 patch 1 patch Transdermal Once Felecia Pereyra DESKTOP SPECIALIST 1 patch at 09/03/182005 sodium chloride (PF) [...] NOTE Patient Name: Dayna Tinsley MR #: [id number] Assessment and Plan: 1. Pyelonephritis - E [...] (premix) 2,000 mg Intravenous Q8H Luisa Vasques [facility],PharmD 200 mL/hr at 09/05/18 0520 2,000 mg [...] facilitated conversation with pt who identifies as Temple and finds strength/meaning/comfort in their sabianism tradition. Pt expressed her exhaustion and I left pt to rest. Educated pt on role and availability of pastoral care. No further pastoral care requested. Recommend- Visit w pt and family PRN Rev. Roderick Graham MDiv Resident Drilling Machine Operator, Pastoral Care [facility] * Harriet Bustamante, RN - 09/04/2018 8:32 [...] pyelonephritis. ID c/s pending. Urology c/s pending. [facility] will follow for possibledischarge needs. in this [...] section and content) DATE CREATED AUTHOR 04/30/2018 [facility] DATE CREATED AUTHOR AUTHOR'S ORGANIZ ATION 05/01/2018 [facility] DATE CREATED AUTHOR AUTHOR'S ORGANIZ ATION 08/24/2018 [facility] DATE CREATED AUTHOR AUTHOR'S ORGANIZ ATION 09/06/2018 [facility] DATE CREATED AUTHOR AUTHOR'S ORGANIZ ATION 10/08/2018 [facility] DATE CREATED AUTHOR AUTHOR'S ORGANIZ ATION 10/12/2018 [facility] nter DATE CREATED AUTHOR AUTHOR'S ORGANIZ ATION 10/13/2018 [facility] DATE CREATED AUTHOR AUTHOR'S ORGANIZ ATION 02/11/2019 [facility] DATE CREATED AUTHOR AUTHOR'S ORGANIZ ATION 04/09/2019 [facility] DATE CREATED AUTHOR AUTHOR'S ORGANIZ ATION 04/11/2019 [facility] DATE CREATED AUTHOR AUTHOR'S ORGANIZ ATION 04/13/2019 [facility] DATE CREATED AUTHOR AUTHOR'S ORGANIZ ATION 10/24/2021 [facility] DATE CREATED AUTHOR AUTHOR'S ORGANIZ ATION 01/12/2023 [facility] DATE CREATED AUTHOR AUTHOR'S ORGANIZ ATION 03/15/2023 [facility] ([place]) DATE CREATED AUTHOR AUTHOR'S ORGANIZ ATION 06/07/2023 [facility] DATE CREATED AUTHOR AUTHOR'S ORGANIZ ATION 11/19/2024 [facility] DATE CREATED AUTHOR AUTHOR'S ORGANIZ ATION 12/11/2024 [facility] DATE CREATED AUTHOR AUTHOR'S ORGANIZ ATION 02/26/2025 [facility] DATE CREATED AUTHOR AUTHOR'S ORGANIZ ATION 03/11/2025 [facility] DATE CREATED AUTHOR AUTHOR'S ORGANIZ ATION 05/02/2025 [facility] DATE CREATED AUTHOR AUTHOR'S ORGANIZ ATION 05/14/2025 [facility] DATE CREATED AUTHOR AUTHOR'S ORGANIZ ATION 05/15/2025 [facility] Reason for Visit (unrecogniz ed section and content) Reason Comments Headache Specialty Diagnoses / Procedures Referred By Controny t Referred To Contact Diagnoses Hyperglycemia in (HHS-HCC) Procedures Celena Carty, BARREL SCRAPER-DESKTOP SPECIALIST [address] [place] [address] Phone: tel: fax: [facility] [phone] [place] [address] Phone: tel: Referral ID Status Reason Start Date Expiration Date Visits Re quested Visits Authorized [id number] 1 1 Reason Comments Nausea Emesis Abdominal [...] risk she can be referred back to [facility]. Procedures Referral to OBGYN office. [address] [address] Phone: tel: [facility] [address] [place] [address] Phone: tel: fax: Referral ID Status Reason Start Date Expiration Date Visits Re quested Visits Authorized [id number] Closed 11/17/2024 05/16/2025 1 1 Reason Comments Hyperglycemia Reason Comments Hypertension Headache Nausea/Vomiting In Specialty Diagnoses / Procedures Referred By Contac t Referred To Contact Diagnoses Hyperglycemia in ([facility]) Procedures Celena Carty, BARREL SCRAPER-DESKTOP SPECIALIST [address] [place] [address] Phone: tel: fax: [facility] [address] [phone] [place] [address] Phone: tel: Reason Comments Contractions Hypertension Specialty Diagnoses / Procedures Referred By Contac t Referred To Contact Diagnoses Severe preeclampsia, third trimester ([facility]) Procedures Dhara Harrington, BARREL SCRAPER-DESKTOP SPECIALIST [address] [facility] Department of [employer] [place] [address] Phone: tel: fax: [facility] 2 Obstetrics and Gynecology [address] [place] [address] Phone: tel: Referral ID Status Reason Start Date Expiration Date Visits Re quested Visits Authorized [id number] 1 1 Reason Comments New Patient Visit NEW PT WANTING BACK ON OZEMPIC Reason Comments Follow-up Patient Saathoff is here [facility] 1. Patient is here for a PPV , No pain , No falls . BS 123 BP 128/77 HR 110 Reason Comments Follow-up 6 week fu (ozempic) having trouble sleeping Chase Parham MD - 09/03/2018 12:58 PM EDT H&P Notes (unrecognized sect ion and content) Formatting of this note may be different from the original. [facility] History and Physical Patient Name: Dayna Tinsley : 1990 MR #: [id number] Admit Date: 10291112 Physicians: Freddie Tinoco PA-C [...] Dayna Tinsley Admit Date: 10291112 MR #: [id number] : 1990 Assessment and Plan: 1. Pyelonephritis - E coli from urine from 08/31. Ancef reasonable. May take a few days to defervesce. 2. Crohn's - Per primary. 3. RA - Per primary. Disposition Comments: Monitor on Ancef. Physicians: Freddie Tinoco PA-C (Family); [facility] Chief Complaint/Reason for Visit: sepsis, pyelonephritis, recent [...] mg 5 mg Intravenous Q4H Felecia Arteaga DESKTOP SPECIALIST 5 mg at 09/04/18 0617 QUEtiapine (SEROQUEL) [...] Dayna Tinsley Admit Date: 10291112 MR #: [id number] : 1990 Physicians: Freddie Tinoco PA-C (Family); [...] was consulted by Dr. Parham of the [facility] service to evaluate the above issue. History: [...] RN - 09/08/2018 4:10 PM ESTPlan of [facility] Emergency Department - Earl Cruz, TARA - 09/06/2018 6:22 [facility] - Becky Vuong RN - 09/06/2018 3:21 [...] will sign off F/u on at our [facility] office to discuss UTI prevention for 10/02/18 at 1:45pm. Arrive at 1:15pm. Details on AVS Patient had scored MEWS of 5. Have notified Rapid Response Nurse. [facility] master control engineer is aware of the MEWS score. Patient is here for Sepsis. [facility] has placed an order for PRN Tylenol. Tylenol have been given. Will monitor patient and take vital again in one hour. [facility] NOTE Called by pt's nurse [...] and a temperature of greater than 102. [facility] physician and Rapid response nurse notified. See orders for physician recommendations. Will continue to monitor. Formatting of this note may be different from the original. ED PROVIDER NOTE [facility] EMERGENCY DEPARTMENT NAME: Dayna Tinsley AGE: 27 y.o. : 1990 VISIT DATE: 09/03/2018 CSN: [id number] PCP: Freddie Tinoco PA-C Chief complaint: Right [...] Yellow Clarity, Urine Cloudy (A) Clear Specific [place] 1.015 1.005 - 1.025 pH, Urine 5.0 [...] w/Cardiac Monitoring [19] Admitting Physician: CHASE PARHAM [[id number]] Diagnosis: Acute pyelonephritis [[id number]] Attending Provider or Group: [facility], GENER[facility] [[id number]] Expected Length of Stay in Days: 3 [...] advises she is sending this patient to [facility] ED. Patient with hx of Chrohn's who [...] Physician Member Role: ED Physician Address: Address: [address] [place] [address]- Care Teams (unrecognized sec tion and content) [...] No Primary Care Physician Family Provider Active [facility] Primary Care Provider A ctive Team Status: Inactive Member Role Status Dates [facility] Primary Care Provider A ctive Dr. Major Mejia , DO Emergency Provider Active Team Status: Inactive Member Role Status Dates [facility] Primary Care Provider A ctive Dr. Joseph Delgado , DO Attending Provider, Emergency P rovider Active Team Status: Inactive Member Role Status Dates [facility] Primary Care Provider A ctive Dr. Garrett Brooks , DO Emergency Provider Active Team Status: Inactive Member Role Status Dates [facility] Primary Care Provider A ctive Dr. Agustín Estrada MD Attending Provider, Emergency Pro vider Active Team Status: Inactive Member Role Status [facility] Primary Care Provider A ctive Dr. Garrett Brooks , DO Attending Provider, Emergency Provider Active Team Status: Active Member Role Status Dates No Primary Care Physician Family Provider Active [facility], [facility] Primary Care Provider Active Team Status: Inactive Member Role Status Dates Dr. Jose Wynn DO Emergency Provider Active Fahad [facility], [employer] Primary Care Provider Active Team Status: Inactive Member Role Status Dates Dr. Jose Wynn DO Attending Provider, Emergency Pro vider Active Fahad Champ[facility], [employer] Primary Care Provider Active Team Status: Inactive Member Role Status Dates Fahad Champagne [facility], [employer] Primary Care Provider Active Ed Physician Provider Emergency Provider Active Team Status: Inactive Member Role Status Dates Fahad Champagne [facility], [employer] [employer] [facility] Primary Care 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 Jose Wynn DO Emergency Provider Active Team Status: Inactive Member Role Status Dates Fahad Champagne [facility], [employer] [facility] Primary Care 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 Jose Wynn DO Attending Provider, Emergency Pro vider Active Team Status: Inactive Member Role Status Dates Fahad Champagne [facility], [employer] Primary Care Provider Active Ed Physician Provider Attending Provider, Emergency Pr ovider Active Team Status: Inactive Member Role Status Dates Fahad Champagne [facility], [employer] Primary Care Provider Active Nito Nur MD Emergency Provider Active Team Status: Inactive Member Role Status Dates [facility]ah[facility], [employer] Primary Care Provider Active Nito Nur MD Attending Provider, Emergency Provid er Active Team Status: Inactive Member Role Status Dates [facility]ah[facility], [employer] [facility] Primary Care 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 Jagjit Ortega MD Attending Provider, Suzy loco Active [employer] Hel[employer] Relationship Specialty Start Date End Date Generic Provider, [place] [address] PCP - General Digital Account Executive 01/20/25 [employer] Relationship Specialty Start Date End Date Generic Provider, [place] [address] PCP - General Digital Account Executive 01/20/25 Cook Helper Fruit Relationship Specialty Start Date End Date Generic Provider, No [place] [address] PCP - General Digital Account Executive 01/20/25 Cook Helper Fruit Relationship Specialty Start Date End Date Generic Provider, [place] [address] PCP - General Digital Account Executive 01/20/25 [place] [address] [place] [address] Meter Repair Shop Supervisor Maternal and Medicine 02/15/25 Cook Helper Fruit Relationship Specialty Start Date End Date Generic Provider, [place] [address] PCP - General Digital Account Executive 01/20/25 [place] [address] [place] [address] Meter Repair Shop Supervisor Maternal and Medicine 02/15/25 Cook Helper Fruit Relationship Specialty Start Date End Date Generic Provider, [place] [address] PCP - General Digital Account Executive 01/20/25 [place] [address] [place] [address] Meter Repair Shop Supervisor Maternal and Medicine 02/15/25 Cook Helper Fruit Relationship Specialty Start Date End Date Generic Provider, [place] [address] PCP - General Digital Account Executive 01/20/25 [place] [address] [place] [address] Meter Repair Shop Supervisor Maternal and Medicine 02/15/25 Cook Helper Fruit Relationship Specialty Start Date End Date Zoë Santana MD [address] [address] PCP - General Internal Medicine 03/16/25 [place] [address] [place] [address] Meter Rep[employer] Shop Supervisor Maternal and Medicine 02/15/25 Scheduled Active and [...] pain scores based on patient preference? Yes 4010 (Given - Provid er: Juany Espana RN) [...] pain scores based on patient preference? Yes 2051 (Given - Provider: Domingo Ortega RN - [...] signs and symptoms of magnesium toxicity including: NEMATOLOGIST depression, diminished DTRs, increasing muscle weakness, respirations [...] Babcock RN) 163 (Not Given - Provider: Myriam Damian RN - Reason: Other - Comment: [...] prior to administration, Tranexamic Acid Indication: Hemorrhage: [employer]SEM[employer] witch carlo (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 [employer] [facility]. provides no warranty or guarantee of the accuracy or completeness of information in this document.
[2025-05-20] MEDS: DiphenhydrAMINE 50 MG/ML Syringe 25 MG IV (04:55)
[2025-05-20] MEDS: 0.9% Normal Saline (1000mL) 1,000 ML 999 ML IV (04:55)
[2025-05-20 05:00] VITALS: BP 110/57; PULSE 94; RESP 18; TEMP 36.6; O2SAT 100
[2025-05-20 05:08] LABS: Hematocrit 38.8 % (37-47); Hemoglobin 12.4 g/dL (12.0-15.0); Immature Granulocytes Count 0.070 X10^3/uL (0.0-0.0); Mean Corp Hgb Conc 32.0 g/dL (32-36); Mean Corpuscular Volume 78.5 fL (81-99); Mean Platelet Vol. 9.9 fl (6.2-12.0); NRBC Flagged by Analyzer 0 % (0-5); POSITIVE COUNT YES; RBC Distribution Width CV 15.1 % (11.6-14.6); RBC Distribution Width SD 42.5 fl (35.1-43.9); Red Blood Count 4.94 M/mm3 (4.2-5.4); White Blood Count 13.6 K/mm3 (4.4-11.0)
[2025-05-20 05:15] LABS: Internal QC Validated? YES +Cl - CLEAR BKGD; Pregnancy, Serum, hCG Quali. NEGATIVE Negative
[2025-05-20 05:16] LABS: Differential Indicated SCAN CRITERIA MET; Record Kit Lot#, Serum Preg. 0000962302
--- NOTE | 2025-05-20 05:20 | RAD_ITS ---
PROCEDURE: ACUTE ABDOMEN INC CHEST 05/20/2025 REASON FOR EXAM: ABD PAIN TECHNIQUE: ACUTE ABDOMEN INC CHEST COMPARISON: Chest x-ray 04/12/2024, abdominal CT 02/22/2024 FINDINGS: Normal heart size. Well inflated lungs. No consolidation, effusion, or pneumothorax. No free air. Nondistended bowel. No concerning calcifications. Mild scoliosis. RAD/Acute Abdomen Inc Chest IMPRESSION: Clear lungs. Nonobstructed bowel-gas pattern. Reading Location: [facility]-
--- NOTE | 2025-05-20 05:20 | RAD_ITS ---
PROCEDURE: ACUTE ABDOMEN INC CHEST 05/20/2025 REASON FOR EXAM: ABD PAIN TECHNIQUE: ACUTE ABDOMEN INC CHEST COMPARISON: Chest x-ray 04/12/2024, abdominal CT 02/22/2024 FINDINGS: Normal heart size. Well inflated lungs. No consolidation, effusion, or pneumothorax. No free air. Nondistended bowel. No concerning calcifications. Mild scoliosis. RAD/Acute Abdomen Inc Chest IMPRESSION: Clear lungs. Nonobstructed bowel-gas pattern. Reading Location: [facility]-
[2025-05-20 05:23] LABS: Lipase 23 U/L (13-75)
[2025-05-20 05:30] LABS: AST(SGOT) 34 U/L (<=31); Alanine Aminotransfer ALT/SGPT 29 U/L (<=34); Albumin, Serum 4.3 g/dL (3.5-5.0); Alkaline Phosphatase 104 U/L (35-104); Anion Gap 13 (5-15); BUN 12 mg/dL (4-19); BUN/Creat Ratio 15.1 RATIO (10-20); Bilirubin, Direct 0.20 mg/dL (0.00-0.30); Calcium,Total 9.3 mg/dL (7.6-11.0); Carbon Dioxide 20.0 mmol/L (21.0-32.0); Chloride 103 mmol/L (98-108); Estimated Creatinine Clearance 137.75 ml/min (50-250); Globulin 3.6 g/dL (2.2-4.2); Glucose 72 mg/dL (70-99); Potassium 3.9 mmol/L (3.3-5.1)
[2025-05-20 05:37] LABS: Platelet Count 310 K/mm3 (150-450)
--- NOTE | 2025-05-20 05:55 | EX.ED.DYSGE1 ---
HPI History of Present Illness Chief Complaint: General Illness Informant: patient and friend Narrative Narrative: Patient is a 33-year-old female with past medical history of Crohn's disease as well as jni-xfdybtl-ngsspoobe type 2 diabetes and anxiety. She states that she recently went back to work after having a child. She reports that she was at work this evening when she felt hot and flushed and lightheaded. She states that she was nauseated with this and then had a bout of vomiting. She states that now she has mild abdominal discomfort. She states with her history of Crohn's disease as well as previous intestinal resection she is concerned about potential infection or Crohn's flare or obstruction. She states that she did not notice that her heart was racing or skipping beats prior to the onset of her symptoms. She reports no known sick contacts at home and states has been taking her medications as directed. [facility] Medical History (Updated 05/21/25 @ 07:[address] Major Mejia, ) Type 2 diabetes mellitus Hx of mastitis Congenital heart defect Endometriosis Crohn's disease Home Medications ?Medication ?Instructions ?Recorded ?Last Taken ?Type acetaminophen 500 mg capsule 500 mg PO Q6H PRN pain 04/12/24 04/12/24 History loperamide 2 mg capsule 2 mg PO PRN 04/12/24 Unknown History famotidine 20 mg tablet (Pepcid) 20 mg PO DAILY #30 tabs 09/02/24 Unknown Rx promethazine 12.5 mg tablet 12.5 mg PO Q6H PRN nausea and 09/02/24 Unknown Rx vomiting #90 tabs promethazine 25 mg rectal 25 mg CA 4X/DAY PRN 11/13/24 Unknown Rx suppository Nausea/vomiting #12 ea flash glucose scanning reader #1 ea 12/19/24 Unknown Rx (FreeStyle Javon 2 [place]) flash glucose sensor (FreeStyle #1 ea 12/19/24 Unknown Rx Javon 2 Sensor kit) blood sugar diagnostic (True #100 ea 12/22/24 Unknown Rx Metrix Glucose Test Strip) blood sugar diagnostic (True #100 ea 12/22/24 Unknown Rx Metrix Glucose Test Strip) lancets #200 ea 12/22/24 Unknown Rx lancets 30 gauge (Droplet Lancets) #200 ea 12/22/24 Unknown Rx cyclobenzaprine 10 mg tablet 10 mg PO HS 03/05/25 Unknown History furosemide 40 mg tablet 40 mg PO QAM 03/05/25 Unknown History nifedipine 30 mg tablet,extended 30 mg PO QDAY 03/05/25 Unknown History release nifedipine 60 mg tablet,extended 60 mg PO QDAY 03/05/25 Unknown History release 24 hr spironolactone 25 mg tablet 25 mg PO QDAY 03/05/25 Unknown History diazepam 2 mg tablet 2 mg PO TID PRN ptsd #20 tabs 04/30/25 Unknown Rx doxepin 75 mg capsule 75 mg PO DAILY PRN sleep #90 caps 04/30/25 Unknown Rx hydroxyzine HCl 50 mg tablet 50 mg PO BID PRN anxiety #180 tabs 04/30/25 Unknown Rx modafinil 200 mg tablet 200 mg PO DAILY #30 tabs 04/30/25 Unknown Rx quetiapine 25 mg tablet 25 mg PO QHS #30 tabs 05/14/25 Unknown Rx promethazine 25 mg tablet 25 mg PO TID PRN nausea and 05/20/25 Unknown Rx vomiting #21 tabs Allergy/AdvReac Type Severity Reaction Status Date / Time methylprednisolone (From Allergy Severe Anaphylaxis Verified 05/20/25 04:09 Solu-Medrol) midazolam (From Versed) Allergy Unknown Other Verified 05/20/25 04:09 benzocaine (From Cetacaine) Allergy Anaphylaxis Verified 05/20/25 04:09 butamben (From Cetacaine) Allergy Anaphylaxis Verified 05/20/25 04:09 methylprednisolone sodium Allergy Anaphylaxis Verified 05/20/25 04:09 succinate (From Solu-Medrol) metoclopramide (From Reglan) Allergy Other Verified 05/20/25 04:09 sertraline Allergy Other Verified 05/20/25 04:09 tetracaine (From Cetacaine) Allergy Anaphylaxis Verified 05/20/25 04:09 midazolam HCl (From Versed) AdvReac Other Verified 05/20/25 04:09 Family History Grandmother Breast cancer, Onset Age: 37 Paternal Aunt Breast cancer, Onset Age: 36 Paternal Aunt Breast cancer Maternal Grandmother Breast cancer, Onset Age: 80 Maternal Surgical History Hx of myringotomy History of colon resection H/O dilation and curettage H/O resection of small bowel History of cholecystectomy Hx LEEP (loop electrosurgical excision procedure), cervix, Social History adopted: No 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al status: employed 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al exposures/hazards: Yes pets and animals: Yes pets and animals: dog(s) history of recent travel: Yes ([place], [place]) out of state: Yes out of country: No sexually active: Yes Smoking Status: Current some day smoker tobacco type: cigarettes quit status: considering quitting alcohol intake: never substance use type: does not use diet: other well-balanced diet: about half the time caffeine: Yes Type: carbonated beverages Number of servings: 2 eating out: 4 or more times/week during the past year weight has: decreased > 10 lbs what type of physical activity do you participate in: weight training frequency: 1-2 times per week duration: < 15 minutes/day keiko/confucianism: Worship seatbelt use: always do you feel safe at home: Yes additional social history: FOB is Donor ROS ROS ED Constitutional Constitutional ED: Denies chills or fever(s) Eyes Eyes: Denies change in vision ENT ENT ED: Denies sore throat Cardiovascular Cardiovascular: Denies chest pain, palpitations or racing heartbeat Respiratory/Chest Respiratory/Chest: Denies cough or dyspnea Gastrointestinal Gastrointestinal: Reports abdominal pain, nausea and vomiting; Denies diarrhea Genitourinary Genitourinary ED: Denies dysuria Musculoskeletal Musculoskeletal: Denies back pain or myalgias Integumentary Denies rash Neurologic Neurologic: Denies headache(s) Hematologic/Lymphatic Hematologic/Lymphatic: Denies easy bleeding or easy bruising EXAM Physical Exam Const Vital Signs: 05/20/25 04:10 05/20/25 04:10 05/20/25 04:13 Temperature 97.8 F 97.8 F Temperature Source Oral Oral Pulse Rate 91 85 Respiratory Rate 19 H 18 Respiratory Effort Normal Respiratory Pattern Normal Blood Pressure 139/103 H 139/103 H Blood Pressure Mean 115 115 Pulse Ox 100 100 Oxygen Delivery Method Room Air Room Air 05/20/25 05:00 Temperature 97.8 F Temperature Source Oral Pulse Rate 94 Respiratory Rate 18 Respiratory Effort Respiratory Pattern Blood Pressure 110/57 L Blood Pressure Mean 74 Pulse Ox 100 Oxygen Delivery Method Room Air Positive well nourished and well developed General Appearance ED: well developed; Negative for pallor HEENT Reports moist mucous membranes HEENT Narrative: No tongue or lip swelling no oral lesions no airway edema or compromise No secondary findings in the posterior pharynx to suggest infection Eyes PERRL and EOMs intact bilaterally General Eye ED: Negative for pale conjunctiva or scleral icterus Neck supple Resp normal respiratory effort and clear to auscultation bilaterally Cardio regular rate and regular rhythm Rate: other Other Details: Regular rate and rhythm without murmurs rubs or gallops Radial and carotid pulses equal and symmetric GI non-distended and no masses GI Narrative: Abdomen is soft and nondistended with hyperactive bowel sounds. There is mild diffuse pain on palpation without voluntary guarding or rigidity or pulsatile mass. No increased tympany noted Auscultation: hyperactive bowel sounds Palpation: soft Back/Spine no CVA tenderness Extremity normal to inspection Extremity Narrative: No asymmetric edema no pitting edema negative Homans' sign bilaterally Neuro oriented x3, CN's II-XII intact bilaterally and no sensory deficits noted Sensorium / Orientation: alert Motor Exam: strength 5/5 throughout Psych mental status grossly normal Skin no rashes or lesions noted and no wounds General Skin Exam: Negative for jaundice or pallor MDM MDM MDM Narrative Medical decision making narrative: Patient arrived to the ER with stable vitals but a soft nonsurgical abdomen. With report of nausea and vomiting there is concern for Crohn's flare versus small bowel obstruction versus viral infection such as norovirus or rotavirus. Physical exam did not suggest a obstruction or ileus so therefore elected to perform basic laboratory studies and an acute abdominal x-ray. Patient's white count is slightly elevated at 13.6 which is nonspecific and could just be stress response from the event which happened at work. Otherwise lipase is normal going against pancreatitis and there is no signs of acute kidney injury or clinically significant electrolyte abnormality. Acute abdominal series revealed no signs of distention or obstruction or perforation. On reevaluation she is feeling better. Her abdomen remains soft and nonsurgical. We discussed the potential CT scan based on her mild leukocytosis but as patient's abdomen remains soft and nonsurgical and she has had improvement of symptoms we will hold off on further imaging at this time and patient be discharged home with outpatient follow-up. History & Record Review Discussion w/independent historian: Patient and Friend Lab Data Attestation: I reviewed the patient's lab results. Labs: Laboratory Results - last 24 hr 05/20/25 04:53 WBC 13.6 H RBC 4.94 Hgb 12.4 Hct 38.8 MCV 78.5 L MCH 25.1 L MCHC 32.0 RDW Std Deviation 42.5 RDW Coeff of Silke 15.1 H Plt Count 310 MPV 9.9 Immature Gran % (Auto) 0.500 Neut % (Auto) 71.8 H Lymph % (Auto) 21.8 [place] % (Auto) 5.4 Eos % (Auto) 0.0 Baso % (Auto) 0.5 Absolute Neuts (auto) 9.8 H Absolute Lymphs (auto) 2.96 Nucleated RBC % 0 Sodium 136 Potassium 3.9 Chloride 103 Carbon Dioxide 20.0 L Anion Gap 13 BUN 12 Creatinine 0.80 Estim Creat Clear Calc 137.75 Est GFR (MDRD) Non-Af 98 BUN/Creatinine Ratio 15.1 Glucose 72 Calcium 9.3 Total Bilirubin 0.81 Direct Bilirubin 0.20 AST 34 H ALT 29 Alkaline Phosphatase 104 Total Protein 7.9 Albumin 4.3 Globulin 3.6 Lipase 23 Serum , Qual NEGATIVE Radiography Diagnostic Testing: Clinical Impression(s) from Imaging Studies Acute Abdomen Series 05/20/25 05:20 IMPRESSION: Clear lungs. Nonobstructed bowel-gas pattern. Reading Location: [facility] Acute abdominal series with 1 view chest as interpreted by the emergency medicine physician reveals a nonspecific nonobstructed bowel gas pattern without perforation. Chest x-ray component reveals no acute infiltrate Discharge Plan Triage Chief Complaint: General Illness ED Provider: Major Mejia Dx/Rx/DC Orders Clinical Impression: Nausea and vomiting, Nonspecific abdominal pain, Crohn's disease, ADHD Instructions: Abdominal Pain, ED Gastroenteritis, Viral (Adult) Prescriptions: New promethazine 25 mg tablet 25 mg PO TID PRN (Reason: nausea and vomiting) Qty: 21 0RF No Action promethazine 12.5 mg tablet 12.5 mg PO Q6H PRN (Reason: nausea and vomiting) Qty: 90 4RF famotidine [Pepcid] 20 mg tablet 20 mg PO DAILY Qty: 30 6RF furosemide 40 mg tablet 40 mg PO QAM cyclobenzaprine 10 mg tablet 10 mg PO HS spironolactone 25 mg tablet 25 mg PO QDAY nifedipine 60 mg tablet extended release 24hr 60 mg PO QDAY nifedipine 30 mg tablet extended release 30 mg PO QDAY doxepin 75 mg capsule 75 mg PO DAILY PRN (Reason: sleep) Qty: 90 1RF hydroxyzine HCl 50 mg tablet 50 mg PO BID PRN (Reason: anxiety) Qty: 180 1RF diazepam 2 mg tablet 2 mg PO TID PRN Qty: 20 0RF modafinil 200 mg tablet 200 mg PO DAILY Qty: 30 0RF loperamide 2 mg capsule 2 mg PO PRN Rx Instructions: MAX 8/DAILY acetaminophen 500 mg capsule 500 mg PO Q6H PRN (Reason: pain) promethazine 25 mg suppository 25 mg CA 4X/DAY PRN (Reason: Nausea/vomiting) Qty: 12 2RF (DME) FreeStyle Javon 2 [place] Misc See Rx Instructions .Route Qty: 1 0RF Rx Instructions: As directed (DME) FreeStyle Javon 2 Sensor Kit See Rx Instructions .Route Qty: 1 8RF Rx Instructions: As directed (DME) lancets Misc See Rx Instructions .ROUTE .MEDSUPPLY Qty: 200 2RF Rx Instructions: As directed, fasting and 2 hours post meals (DME) True Metrix Glucose Test Strip Strip See Rx Instructions .Route Qty: 100 2RF Rx Instructions: As directed, fasting and 2hr post meals .4x daily (DME) True Metrix Glucose Test Strip Strip See Rx Instructions .Route Qty: 100 6RF Rx Instructions: Test fasting and 2 hours after breakfast, lunch, dinner (DME) lancets [Droplet Lancets] 30 gauge misc See Rx Instructions .ROUTE .MEDSUPPLY Qty: 200 6RF Rx Instructions: Check blood sugars fasting and 2 hours after breakfast, lunch, and supper. quetiapine 25 mg tablet 25 mg PO QHS Qty: 30 0RF Primary Care Provider: Lara Santana Referrals: Lara Santana MD [Primary Care Provider] - Activity Restrictions/Additional Instructions: Your workup today does not show any obvious signs of an acute Crohn's flare ileus or small bowel obstruction. Please keep yourself well-hydrated and take Phenergan as directed to help control any further bouts of nausea and vomiting. If you have any further concerns or worsening of symptoms please return to the ER for repeat evaluation Print Language: Uruguayan Disposition Disposition: Home, Self Care Discharge Date/Time: 05/20/25 06:06
[2025-05-20 06:00] VITALS: BP 112/64; PULSE 79; RESP 18; TEMP 36.6; O2SAT 100
== END 2025-05-20 06:06 | disposition home or self-care (01) ==
PROVIDERS: Emergency Provider Emergency Medicine; PCP Internal Medicine; Visit Provider Emergency Medicine
DX: R11.2 Nausea with vomiting, unspecified (principal); K50.90 Crohn's disease, unspecified, without complications; R10.9 Unspecified abdominal pain; F90.9 Attention-deficit hyperactivity disorder, unspecified type; F17.210 Nicotine dependence, cigarettes, uncomplicated
CPT/HCPCS: 74022; 80048; 80076; 83690; 84703; 85025; 96361; 96374; 96375; 99282; A4216

== ENCOUNTER 2025-06-04 01:17 | Emergency (ER) | payer BC, MEDICAID, SELFPAY ==
[2025-06-04 01:18] VITALS: BP 155/72; PULSE 88; RESP 18; TEMP 37.3; O2SAT 98; BMI 54.3
[2025-06-04 01:21] VITALS: BP 155/72; PULSE 71; RESP 12; TEMP 37.3; O2SAT 99
--- OUTSIDE RECORDS SUMMARY | 2025-06-04 01:57 | XMS RPT_ITS | CCD ---
Author Organization [facility] ion Partnership PLASTIC TILE LAYER [facility] Care Team Providers Care Fudge Candy Maker Name Role Phone JAYDEN PÉREZ Unavailable Unavailable PROVIDER, UNKNOWN Unavailable Unavailable No, PCP Unavailable Unavailable MAYELA ELLIOTT Unavailable Unavailable FREDDIE SHAW V Unavailable Unavailable YEIMY PEREIRA Unavailable Unavailable Young, Jade S Unavailable Unavailable Jere Jade S Unavailable Unavailable Nirmal Maddox Unavailable Unavailable Nirmal Maddox Unavailable Unavailable Swapna Izquierdo Unavailable Unavailable Swapna Izquierdo Unavailable Unavailable Freddie Tinoco Unavailable [phone] AMBERLY MORGAN Unavailable Unavailable SELF, REFERRED Unavailable Unavailable PROVIDER, UNKNOWN Unavailable Unavailable FREDDIE TINOCO Unavailable Unavailable CHASE SANTANA Unavailable Unavaila STU Campos Unavailable UnaARIANNE Ragland Unavailable Unavailable ALCIDES MONTGOMERY Unavailable Unavailabl e Unavailable Unavailable Unavailable DENY, JOSEPH J Unavailable Unavailable DENY, JOSEPH J Unavailable Unavailable BRITTANY BURCH Unavailable Unavailable JAGJIT SALAZAR Unavailable Unavailable DENY, JOSEPH J Unavailable Unavailable [...] Unavailable Unavailable DENY, JOSEPH J Unavailable Unavailable JAGDISH, ASCENCION Unavailable Unavailable JAGDISH, ASCENCION Unavailable Unavailable DENY, JOSEPH J Unavailable Unavailable [...] Provider Un available MITCHEL Keene Attending Provider NO, PHYSICIAN Primary Care Unavailable JEANETTE BEAL Attending UnavailLILY Flores Consulting Unavailab le NO, PHYSICIAN Primary Care [...] ble PHYSICIAN, NONE Primary Care Unavailable STU HALLMAN Referring Unavailable STU HALLMAN Attending Unavailable CLARKE TAYLOR Attending Unavailable HEMAL SALINAS Referring Unavailabl e MARIATOPanchito, YANELIS J Primary Care Unavailable MARYANA WILLIS Attending Unavailable HEMAL SALINAS Referring Unavailabl e MARIATOIDANIA FlanaganYANELIS J Primary Care Unavailable MAJOR HERNANDEZ Attending Unavailable AMBERLY PETIT Referring Unavailab le MARIATOPanchito, YANELIS J Primary Care Unavailable CLARKE TAYLOR Attending Unavailable HEMAL SALINAS Referring Unavailabl e SPIRTOS, YANELIS J Primary Care Unavailable Unavailable Primary Care Provider UnavailSUGEY Castañeda Attending Unavailable Unavailable Primary Care Provider Unavailabl e Generic Provider , No Assigned Pcp Primary Car e Provider Unavailable Earl [place] MD Unavailable Generic Provider , No Assigned Pcp Primary Car e Provider Unavailable Esther SEAMAN, [facility] Primary Care Provider YULIYA OTOOLE Attending Unavailable GENERIC PROVIDER, NO ASSIGNED PCP Primary Care Unavailable ZARRABI, ZOË Attending Unavailable ZARRABI, ZOË Referring Unavailable GENERIC PROVIDER, NO ASSIGNED PCP Primary Care Unavailable ZARRABI, ZOË Attending Unavailable ZARRABI, ZOË Primary Care Unavailable ZARRABI, ZOË Attending Unavailable ZARRABI, ZOË Primary Care Unavailable EARL [place] Attending Unavailable STANISLAV, EARL Amos Admitting Unavailable STANISLAV, EARL Amos Referring Unavailable CARLINE POLLACK Attending Unavailable JOSE GUADALUPE GUPTA A Attending Unavailable STANISLAV, EARL N Referring Unavailable STANISLAV, EARL N Admitting Unavailable STANISLAV, EARL N Attending Unavailable STANISLAV, EARL Amos Admitting Unavailable STANISLAV, EARL Amos Attending Unavailable GENERIC PROVIDER, NO ASSIGNED PCP Primary Care Unavailable STANISLAV, EARL Amos Referring Unavailable STANISLAV, EARL Amos Attending Unavailable JOSE GUADALUPE GUPTA A Referring Unavailable GENERIC PROVIDER, NO ASSIGNED PCP Primary Care Unavailable HARRIET SPENCER Attending Unavailable GENERIC PROVIDER, NO ASSIGNED PCP Primary Care Unavailable JOSE GUADALUPE GUPTA A Referring Unavailable GENERIC PROVIDER, NO ASSIGNED PCP Primary Care Unavailable HARRIET SPENCER Attending Unavailable GENERIC PROVIDER, NO ASSIGNED PCP Primary Care Unavailable CANDY DULCE Referring Unavailable GENERIC PROVIDER, NO ASSIGNED PCP Primary Care Unavailable JASMINA BENÍTEZ Attending Unavailable GENERIC PROVIDER, NO ASSIGNED PCP Primary Care Unavailable GENERIC PROVIDER, NO ASSIGNED PCP Primary Care Unavailable CLAIR JORGENSEN Admitting Unavailable CANDYJOSE GUADALUPE A Attending Unavailable BAZELLA, KELLI A Admitting Unavailable BAZELLA, KELLI A Attending Unavailable GENERIC PROVIDER, NO ASSIGNED PCP Primary Care Unavailable JOSE GUADALUPE MILLS E Admitting Unavailable JOSE GUADALUPE MILLS E Attending Unavailable SHAMAR ALBERTO Referring Unavailable GENERIC PROVIDER, NO ASSIGNED PCP Primary Care Unavailable CARLINE POLLACK Attending Unavailable Santi Shaver Attending Unavailable Care Physician, No Primary Primary Care Unava ilable Mayela Jacinto Referring Unavailable Mayela Jacinto Attending Unavailable Care Physician, No Primary Primary Care Unava ilable Hemal Salinas Referring Unavailable Hemal Salinas Attending Unavailable Care Physician, No Primary Primary Care Unava ilable Pacheco VSC, Leticia Primary Care UnavailSanti Figueroa Attending Unavailable Pacheco C, Leticia Primary Care UnavailMarisol Edwards Attending Unavailable Marisol Elliott Referring Unavailable Marisol Elliott Referring Unavailable Marisol Elliott Attending Unavailable Care Physician, No Primary Primary Care Unava ilable Major Mejia Attending Unavailable Zarrabi, Zoë Primary Care Unavailable Amberly Laboy Attending Unavailable Care Physician, No Primary Primary Care Unava ilable Pacheco VSC, Leticia Primary Care Unavailabl e Pacheco VSC, Leticia Referring Unavailabl e Mayela Jacinto Attending Unavailable SkAmberly morales Attending Unavailable Care Physician, No Primary Primary Care Unava ilable Amberly Laboy Attending Unavailable Care Physician, No Primary Primary Care Unava ilable Care Physician, No Primary Primary Care Unava ilable Amberly Laboy Attending Unavailable Pacheco VSC, Leticia Primary Care Unavailabl e Pacheco VSC, Leticia Referring Unavailabl e Hemal Salinas Attending Unavailable Mayela Jacinto Attending Unavailable Care Physician, No Primary Referring Unava ilable Care Physician, No Primary Primary Care Unava ilable Jaida Fiore Attending Unavailable Care Physician, No Primary Primary Care Unava ilable Esther, Zoë Primary Care Unavailable Amberly Laboy Attending Unavailable Pacheco VSC, Leticia Primary Care Unavailabl e Pacheco VSC, Leticia Referring Unavailabl Marisol Goodson Attending Unavailable Pacheco VSC, Leticia Primary Care Unavailabl e Nito Nur Attending Unavailable Jaida Fiore Attending Unavailable Care Physician, No Primary Primary Care Unava ilable Pacheco VSC, Leticia Primary Care Unavailabl e Pacheco VSC, Leticia Attending Unavailabl e Amberly Laboy Attending Unavailable Care Physician, No Primary Primary Care Unava ilable Pacheco VSC, Leticia Referring Unavailabl e Amberly Haas Attending Unavailabl e Care Physician, No Primary Primary Care Unava ilable Pacheco VSC, Leticia Primary Care Unavailabl e Major Mejia Attending Unavailable JORGE L STANFORD Attending Unavailable Care Physician, No Primary Primary Care Unava ilable Amberly Haas Attending Unavailabl e Care Physician, No Primary Primary Care Unava ilable Care Physician, No Primary Referring Unava ilable Pacheco VSC, Leticia Primary Care Unavailabl e Vande VelAmberly thompson Referring Unavailabl e Henrike Alissa, Amberly Attending Unavailabl e Care Physician, No Primary Primary Care Unava ilable Amberly Laboy Attending Unavailable Jaida Fiore Attending Unavailable Care Physician, No Primary Primary Care Unava ilable Pacheco VSC, Leticia Referring UnavailHemal Calles Attending Unavailable Care Physician, No Primary Primary [...] Referring Unavailabl e Mayela Jacinto Attending Unavailable Nav MITCHEL, Rodolfo Attending Unavailable Care Physician, No Primary Primary [...] Care Unava ilable Pacheco VSC, Leticia Referring UnavailHemal Calles Attending Unavailable Care Physician, No Primary Primary [...] e Pacheco VSC, Leticia Referring Unavailabl e Amberly Haas Attending Unavailabl Major Dorman Attending Unavailable Care Physician, No Primary Primary Care Unava ilable Allergies Allergy Classification Reported Allergen(s) Allergy Type Date of Onset Reaction(s) Facility (5 sources) hydrocortisone; Translations: [HYDROCORTISONE SOD SUCCINATE] Drug Allergy 08-07-20 15 [facility] (4 sources) metroNIDAZOLE; Translations: [METRONIDAZOLE HCL] Drug Allergy 08-07-20 15 [facility] ([facility] sources) midazolam; Translations: [MIDAZOLAM] Drug Allergy 03-12-20 15 Anxiety, Nausea Only [facility] (7 sources) Penicillins; Translations: [PENICILLINS] Propensity to adverse reactions to drug 02-04-20 14 Itching [facility] (8 sources) buPROPion; Translations: [BUPROPION] Drug Allergy 10-13-20 16 Hallucinations , Rash [facility] Work Phone: (2 sources) Ciprofloxacin; Translations: [CIPROFLOXACIN HCL] Drug Allergy 05-20-20 15 Swelling [facility] Work Phone: (8 sources) Ciprofloxacin; Translations: [CIPROFLOXACIN] Drug Allergy 05-20-20 15 Swelling [facility] Work Phone: (7 sources) Citalopram; Translations: [CITALOPRAM] Drug Allergy 11-12-19 17 Anxiety [facility] Work Phone: (2 sources) clonazePAM; Translations: [CLONAZEPAM] Drug Allergy 10-13-20 16 [facility] Work Phone: (2 sources) Hydrocortisone; Translations: [HYDROCORTISONE] Drug Allergy 08-07-20 15 [facility] Work Phone: (5 sources) methylPREDNISolone; Translations: [METHYLPREDNISOLONE] Drug Allergy 03-12-20 15 Anaphylaxis [facility] Work Phone: (1 source) methylPREDNISolone Drug Allergy 03-12-20 15 [facility] Work Phone: (7 sources) metroNIDAZOLE; Translations: [METRONIDAZOLE] Drug Allergy 08-07-20 15 Diarrhea [facility] Work Phone: (15 sources) Midazolam; Translations: [MIDAZOLAM HCL] Drug Allergy 09-23-20 12 Other [facility] Work Phone: (2 sources) Morphine; Translations: [MORPHINE] Drug Allergy 09-23-20 12 [facility] Work Phone: (1 source) Penicillins Propensity to adverse reactions to drug 09-01-20 15 Itching [facility] Work Phone: (6 sources) Sertraline; Translations: [SERTRALINE] Drug Allergy 10-08-20 12 Unknown [facility] Work Phone: (17 sources) Benzocaine; Translations: [BENZOCAINE] Drug Allergy 08-18-20 Anaphylaxis [facility] (17 sources) butamben; Translations: [BUTAMBEN] Drug Allergy 08-18-20 Anaphylaxis [facility] (13 sources) methylPREDNISolone; Translations: [methylprednisolone sodium succinate] Drug Allergy 08-18-20 Anaphylaxis [facility] (17 sources) Tetracaine; Translations: [TETRACAINE] Drug Allergy 08-18-20 Anaphylaxis [facility] (6 sources) Adhesive agent; Translations: [ADHESIVE] Propensity to adverse reactions to drug (disorder) 11-07-19 14 Rash [facility] Repository (1 source) Amoxicillin; Translations: [AMOXICILLIN] Drug Allergy 02-04-20 14 [facility] Rep[facility] (7 sources) gabapentin; Translations: [GABAPENTIN] Drug Allergy 12-25-19 14 Unknown, Other [facility] Rep[facility] (6 sources) Propofol; Translations: [PROPOFOL] Drug Allergy 02-19-20 14 Other [facility] Rep[facility] (1 source) Sertraline; Translations: [SERTRALINE HCL] Drug Allergy 10-08-20 12 [facility] (1 source) METHYLPREDNISOLONE SODIUM SUCC; Translations: [METHYLPREDNISOLONE SODIUM SUCC] Propensity to adverse reactions to drug (disorder) 09-23-20 12 [facility] Rep[facility] (7 sources) Metoclopramide; Translations: [METOCLOPRAMIDE] Drug Allergy 02-22-20 24 Other [facility] (1 source) Penicillins Propensity to adverse reactions 02-04-20 14 Hives, Itching, Unknown [facility] (17 sources) Metoclopramide; Translations: [METOCLOPRAMIDE HCL] Drug Allergy 12-24-19 25 Other [facility] (17 sources) Solu-Medrol Mix-O-Vial; Translations: [SOLU-MEDROL MIX-O-VIAL] Propensity to adverse reactions 12-23-19 25 Anaphylaxis [facility] (3 sources) Penicillins Propensity to adverse reactions 02-04-20 14 Hives, Itching, Other, Unknown [facility] Work Phone: (1 source) Benzocaine Drug Allergy 05-20-20 [facility] Repository (1 source) butamben Drug Allergy 05-20-20 [facility] Repository (1 source) methylPREDNISolone Drug Allergy 05-20-20 [facility] Repository (1 source) Metoclopramide Drug Allergy 05-20-20 [facility] Repository (1 source) Midazolam Drug Allergy 05-20-20 [facility] Repository (1 source) Sertraline Drug Allergy 05-20-20 [facility] Repository (1 source) Tetracaine Drug Allergy 05-20-20 [facility] Repository Medications Current Medications Medication Drug [...] gestational diabetes mellitus (GDM) in second trimester ([facility]) Use for testing blood sugar fasting and 1 hour after each meal. 4-6 times per day during 1 each 12/25/2024 12:13 PM EST 12/25/2024 Active blood-glucose sensor (Dexcom G7 Sensor) device (15 sources) Start: 03-01-2025 blood-glucose sensor (Dexcom G7 Sensor) device Indications: Insulin controlled gestational diabetes mellitus (GDM) in second trimester ([facility]) Use 1 sensor and change every 10 days 3 each 2 03/01/2025 Active Start: 02-03-2025 End: 03-01-2025 blood-glucose sensor (Dexcom G7 Sensor) device Indications: Insulin controlled gestational diabetes mellitus (GDM) in second trimester ([facility]) Use 1 sensor and change every 10 days 3 each 02/03/2025 03/01/2025 Discontinued Start: 02-03-2025 blood-glucose sensor (Dexcom G7 Sensor) device Indications: Insulin controlled gestational diabetes mellitus (GDM) in second trimester ([facility]) Use 1 sensor and change every 10 days 3 each 02/03/2025 Active Start: 12-29-2024 blood-glucose sensor (Dexcom G7 Sensor) device Indications: Insulin controlled gestational diabetes mellitus (GDM) in second trimester ([facility]) Use 1 sensor and change every [...] mg/ml injection (1 source) Prostaglandin Analog Start: 02-13-2025 cefdinir 300 mg oral capsule (2 sources) [...] mg tablet Indications: care following vaginal delivery ([facility]) Take 1 tablet (10 mg) by mouth [...] mg tablet Indications: Headache in , antepartum ([facility]) Take 1 tablet (5 mg) by mouth 3 times a day as needed for muscle spasms for up to 10 days. 30 tablet 01/15/2025 1:14 PM EDT 01/15/2025 01/25/2025 Active Start: 01-15-2025 End: 01-15-2025 take 10 mg by mouth once 10 mg, oral, Once, On Sun at 0315, For 1 dose Start: 11-17-2023 [...] 1245 docusate sodium 50 mg / sennosides, senior care 8.6 mg oral tablet (1 source) Start: 02-12-2025 doxepin hydrochloride 75 mg oral capsule (20 sources) Tricyclic Antidepressant Start: 12-23-2024 End: 03-02-2025 take 1 capsule by mouth once daily at bedtime doxepin (SINEquan) 75 mg capsule Indications: Depression affecting in third trimester, antepartum ([facility]) Take 1 capsule (75 mg) by mouth [...] 05, 2023 12:00am 21 day ethinyl estradiol 0.238883 mg/hr / etonogestrel 0.005 mg/hr vaginal ring [...] than or equal to 110, Starting on 02/16/25 at 1417, For 1 dose, Consult provider [...] Indications: Depression affecting in third trimester, antepartum ([facility]) Take 2.5 tablets (25 mg) by mouth 2 times a day as needed for anxiety for up to 14 days. 30 tablet 02/15/2025 11:26 AM EDT 02/15/2025 Active Start: 02-12-2025 take 25 mg by mouth once 25 mg , oral, Once, On Sis 4/10/25 at 1245, For 1 dose Start: 02-09-2025 [...] gestational diabetes mellitus (GDM) in second trimester ([facility]) Use 1, up to 5 times a day 200 each 3 01/22/2025 10:25 AM EDT 12/25/2024 Active Start: 02-12-2018 Alcohol Swabs (ALCOHOL PREP) Pads Use to prep before checking blood sugar 1 Each 11 02/12/2018 Active labetalol hydrochloride 5 mg/ml injectable [...] than or equal to 110, Starting on 02/16/25 at 1417, For 1 dose, Consult provider [...] mg) by mouth once daily. 30 tablet 11 03/18/2025 Active loperamide hydrochloride 2 mg oral [...] magnesium) tablet Indications: headache in second trimester ([facility]) Take 1 tablet (400 mg) by mouth once daily. Take a bedtime 30 tablet 01/08/2025 01/08/2026 Active 500 ml magnesium sulfate 40 mg/ml injection (2 sources) Start: 02-08-2025 End: 02-10-2025 2 g/hr (50 mL/hr), intravenous, Continuous, Starting on Sun02/09/25 at 1700, Monitor blood pressure, pulse, respirations and pulse oximetry every 15 minutes first hour of Magnesium Sulfate administration, then every hour. Monitor for signs and symptoms of magnesium toxicity including: [employer]ENT depression, diminished DTRs, increasing muscle weakness, respirations 1 ml methylergonovine maleate 0.2 mg/ml injection (1 source) Ergot Derivative Start: 02-13-2025 miconazole nitrate 0.02 mg/mg topical powder (1 source) Azole Antifungal Start: 09-13-2018 miconazole 2 % Powder powder Indications: Intertriginous candidiasis Apply 1 Application topically 4 times daily as needed for Other (Rash). Can 09/13/2018 Active miSOPROStol 0.2 mg oral tablet [...] administration. Start: 02-16-2025 take 1 capsule by mo ut once as needed 10 mg, oral, Once as needed, systolic blood pressure greater than or equal to 160 OR diastolic blood pressure greater than or equal to 110, Starting on 02/16/25 at 1418, For 1 dose, Consult provider [...] by mouth daily Active polyethylene glycol 3350 31043 mg powder for oral solution (2 sources) Osmotic Laxative Start: 02-13-2025 Start: 12-23-2024 Xlopwopf-Uqi-Hs-FA ( 1 + IRON PO) (1 source) Janlspaq-Owq-Ab-FA ( 1 + IRON PO) Take 1 [...] mouth once daily at bedtime. 30 tablet 05/13/2025 05/13/2026 Active Start: 09-03-2018 End: 09-08-2018 [...] Start: 02-15-2025 take 3 tablets by mo [facility] every six hours for pain acetaminophen (Tylenol) 325 mg tablet Indications: care following vaginal delivery ([facility]) Take 3 tablets (975 mg) by mouth [...] for pain 975 mg, oral, Once, On Sun02/09/25 at 0345, For 1 dose, If ordered [...] Start: 12-24-2024 take 1 tablet by job every six hours as needed 975 mg, [...] Opioid Agonist Start: 11-17-2023 End: 03-03-2025 HYDROcodone-acetaminophen (Purling) 5-325 mg tablet Take by mouth. 11/17/2023 [...] 3:54am Start: 09-03-2017 take [address] [facility] every six hours for muscle spasms dicyclomine 20 MG Tab tablet take 1 tablet by mouth every 6 hours. For abdominal spasms 30 tablet 0 09/03/2017 Active diphenhydrAMINE (9 sources) Histamine-1 Receptor Antagonist Start: 02-12-2025 End: 02-12-2025 50 mg, intravenous, Once, On Sis 02/12/25 [...] Every 6 hours PRN, sleep, Starting on 2/19/25 at 1903, If giving IV push, max [...] gestational diabetes mellitus (GDM) in second trimester ([facility]) Inject 40 units twice daily. 24 mL 1 03/09/2025 Active Start: 03-01-2025 inject 40 [IU] by gandara bcutaneous injection once daily insulin glargine (Lantus) 100 unit/mL (3 mL) pen Indications: Insulin controlled gestational diabetes mellitus (GDM) in second trimester ([facility]) Inject 40 Units under the skin once [...] gestational diabetes mellitus (GDM) in second trimester ([facility]) Inject 40 units in the morning and 50 units at night. May increase to 150 units total per day during as needed. 45 mL 3 01/06/2025 02/15/2025 Discontinued (Stop Taking at Discharge) Start: 01-01-2025 End: 01-01-2025 insulin NPH, Isophane, (Rodrigo CHARLENE N FlexPen) 100 unit/mL (3 mL) injection Indications: Insulin controlled gestational diabetes mellitus (GDM) in second trimester ([facility]) Inject 30 units in the morning and 40 units at night. May increase to 100 units total per day during as needed. 30 mL 3 01/01/2025 Active Start: 12-25-2024 End: 01-01-2025 insulin NPH, Isophane, (Rodrigo CHARLENE N FlexPen) 100 unit/mL (3 mL) injection Indications: Insulin controlled gestational diabetes mellitus (GDM) in second trimester ([facility]) Inject 20 units in the morning and 30 units at night. May increase to 50 units total per day during as needed. 15 mL 3 12/25/2024 12:13 PM EST 12/25/2024 01/01/2025 Discontinued Start: 12-25-2024 inject 20 [IU] by gandara bcutaneous injection every twenty-four hours 20 Units, [...] Discontinued Start: 03-01-2025 inject 10 [IU] by gandara bcutaneous injection three times daily before mealtime insulin lispro (HumaLOG) 100 unit/mL pen Indications: Insulin controlled gestational diabetes mellitus (GDM) in second trimester ([facility]) Inject 10 Units under the skin 3 [...] gestational diabetes mellitus (GDM) in second trimester ([facility]) Inject 25 units with each meal. May increase to 150 units total per day during as needed. 45 mL 3 01/29/2025 02/15/2025 Discontinued (Stop Taking at Discharge) Start: 01-06-2025 insulin lispro (HumaLOG KwikPen Insulin) 100 unit/mL pen Indications: Insulin controlled gestational diabetes mellitus (GDM) in second trimester ([facility]) Inject 25 units with each meal. May increase to 150 units total per day during as needed. 45 mL 3 01/06/2025 Active Start: 01-01-2025 End: 01-01-2025 insulin lispro (HumaLOG Kwik Pen Insulin) 100 unit/mL injection Indications: Insulin controlled gestational diabetes mellitus (GDM) in second trimester ([facility]) Inject 15-20 units with each meal. May increase to 100 units total per day during as needed. 30 mL 3 01/01/2025 Active Start: 12-25-2024 End: 01-01-2025 insulin lispro (HumaLOG Kwik Pen Insulin) 100 unit/mL injection Indications: Insulin controlled gestational diabetes mellitus (GDM) in second trimester ([facility]) Inject 10 units with each meal. May increase to 30 units total per day during as needed. 15 mL 3 12/25/2024 12:13 PM EST 12/25/2024 01/01/2025 Discontinued Start: 12-23-2024 inject 10 [IU] by gandara bcutaneous injection three times daily before mealtime [...] Start: 07-31-2018 take 25 mg rectal ro otoe-missou[place] every eight hours as needed promethazine 25 MG Suppository suppository Insert 1 suppository rectally every 8 hours as needed for Nausea / Vomiting (Nausea/Vomiting). 12 suppository 0 07/31/2018 Active take 25 mg rectal ro otoe-[place]ou[place] once daily as needed for nausea promethazine [...] 3 day Indications: 32 weeks gestation of ([facility]) Place 1 patch over 72 hours [...] mellitus without complications] Onset: 5 05-13-2025 Chronic Disorders of lipid metabolism (1 source) Hypercholesterolemia; [...] hemorrhage] Onset: 5 Resolved: 6 11-28-2015 Episodic Headache; including migraine (2 sources) Headache; [...] [Weakness] Onset: 5 09-13-2023 Episodic Menstrual disorders (3 sources) Amenorrhea; Translations: [Dysmenorrhea, unspecified] Onset: 3 Chronic Mood disorders (8 sources) Depressive disorder; Translations: [Unspecified mood [affective] disorder] Onset: 5 Resolved: 7 10-22-2017 Chronic Mood disorders (3 sources) Mood disorders; Translations: [Depression, unspecified] Onset: 5 Mycoses (1 source) Candidal intertrigo; Translations: [Intertriginous candidiasis] Onset: 8 09-13-2018 Episodic Nausea and vomiting (20 sources) Nausea and vomiting; Translations: [Nausea with vomiting, unspecified] Onset: 5 Resolved: 7 09-01-2015 Episodic Nonspecific chest pain (8 sources) Chest pain; Translations: [Chest pain, unspecified] 06-05-2023 Episodic Nutritional deficiencies (2 sources) Vitamin D deficiency; Translations: [Vitamin D deficiency, unspecified] Onset: 5 10-10-2017 Chronic Other aftercare (2 sources) sorority mother (current) use of insulin; Translations: [sorority mother (current) use of insulin (Multi)] Onset: 5 Episodic Other complications of (3 sources) Maternal obesity complicating , childbirth and the puerperium, antepartum; Translations: [Obesity complicating , unspecified trimester] 01-01-2025 Chronic Other complications of (2 sources) Obesity complicating , third trimester; Translations: [Obesity complicating , third trimester (HHS-HCC)] Onset: 5 Chronic Other complications of (3 sources) Obesity complicating , unspecified trimester; Translations: [Obesity complicating , unspecified trimester (HHS-HCC)] Onset: 5 Chronic Other complications of (2 sources) Multigravida of advanced maternal age; Translations: [Supervision of elderly multigravida, unspecified trimester] 01-01-2025 Episodic Other complications of (5 sources) Anxiety in ; Translations: [Other mental disorders complicating , second trimester] Onset: 5 01-01-2025 Episodic Other complications of (12 sources) Depressive disorder; Translations: [Other mental disorders complicating , second trimester] Onset: 5 01-01-2025 Episodic Other connective tissue disease (8 sources) Pain in right arm; Translations: [Pain in right arm] 06-05-2023 Episodic Other endocrine disorders (2 sources) Polycystic ovaries; Translations: [PCOS (polycystic ovarian syndrome)] Onset: 8 09-13-2018 Chronic Other female genital disorders (3 sources) H/O: premature delivery; Translations: [Personal history of pre-term labor] Onset: 7 Resolved: 7 10-22-2017 Episodic Other gastrointestinal disorders (2 sources) Irritable [...] disorders (1 source) Hypomagnesemia; Translations: [Hypomagnesemia] Onset: 5 Chronic Other nutritional; endocrine; and [...] source) Other insomnia; Translations: [Other insomnia] Onset: Chronic Residual codes; unclassified (1 source) Gestation period, 31 weeks; Translations: [31 weeks gestation of ] Onset: 5 02-04-2025 Episodic Residual codes; unclassified (1 source) Edema of lower extremity; Translations: [Localized edema] 03-03-2025 Episodic Residual codes; unclassified (3 sources) Bilateral lower limb edema; Translations: [Localized edema] Onset: 5 03-11-2025 Episodic Residual codes; unclassified (2 sources) Personal history of other complications of , childbirth and the puerperium; Translations: [Personal history of other complications of , childbirth and the puerperium] Onset: Episodic Residual codes; unclassified (2 sources) Localized [...] 8 Unclassified (1 source) Non-stress Test / [id number]() Onset: 8 Unclassified (1 source) Chest pain, [...] lung, unilateral, initial encounter] Onset: 2 Episodic Diabetes or abnormal glucose tolerance complicating ; childbirth; or the puerperium (20 sources) Gestational diabetes mellitus; Translations: [Hyperglycemic disorder in ] Onset: 8 Resolved: 5 02-19-2018 Episodic Diseases of white blood cells (1 source) Leukocytosis; Translations: [Leukocytosis] Onset: 5 Resolved: 6 12-27-2015 Chronic Early or threatened labor (2 sources) False labor, unspecified; Translations: [Premature uterine contraction] Onset: 7 Resolved: 7 10-22-2017 Episodic Fever of unknown origin (1 source) Fever; Translations: [Fever] Onset: 5 Resolved: 6 12-27-2015 Episodic Fluid and electrolyte disorders (15 sources) Hypokalemia; Translations: [Hypokalemia] Onset: 8 Episodic Gastritis and duodenitis (3 sources) Bile-induced gastritis; Translations: [Other gastritis without bleeding] Onset: 7 10-26-2017 Episodic Genitourinary symptoms and ill-defined conditions (1 source) Dysuria; Translations: [Dysuria] Onset: 5 Episodic Headache; including migraine (16 sources) Headache; [...] psychosis] Onset: 8 Resolved: 5 01-01-2025 Episodic Noninfectious gastroenteritis (1 source) Chronic diarrhea; Translations: [Chronic diarrhea] Onset: 7 06-26-2017 Episodic Normal and/or delivery (19 sources) ; Translations: [Delivery normal] Onset: 5 Resolved: 5 09-01-2015 Episodic Other aftercare (2 sources) 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; Translations: [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] Onset: 7 Episodic [...] Resolved: 5 10-22-2017 Episodic Other complications of (3 sources) Supervision of high risk , unspecified, unspecified trimester; Translations: [Supervision of high risk , unspecified, unspecified trimester] Onset: 7 Episodic Other complications of (2 sources) Other [...] Resolved: 5 01-08-2025 Episodic Other complications of (2 sources) Other mental disorders complicating , third trimester; Translations: [Other mental disorders complicating , third trimester] Onset: 5 Episodic Other complications of (2 sources) Other mental disorders complicating , second trimester; Translations: [Other mental disorders complicating , second trimester ([facility])] Onset: 5 Episodic Other complications of (2 sources) Other specified related conditions, third trimester; Translations: [Other specified related conditions, third trimester ([facility])] Onset: 5 Episodic Other complications of (2 sources) Other specified related conditions, second trimester; Translations: [Other specified related conditions, second trimester ([facility])] Onset: 5 Episodic Other complications of (2 sources) Maternal care for other abnormalities of cervix, second trimester; Translations: [Maternal care for other abnormalities of cervix, second trimester ([facility])] Onset: 5 Episodic Other complications of (2 sources) Other specified related conditions, unspecified trimester; Translations: [Other specified related conditions, unspecified trimester ([facility])] Onset: 5 Episodic Other complications of (4 sources) Supervision of elderly multigravida, unspecified trimester; Translations: [Supervision of elderly multigravida, unspecified trimester ([facility])] Onset: 5 Episodic Other complications of (1 source) Maternal care for other abnormalities of cervix, unspecified trimester; Translations: [Maternal care for other abnormalities of cervix, unspecified trimester] Onset: 5 Episodic Other complications of (1 source) Supervision of other high risk pregnancies, unspecified trimester; Translations: [Supervision of other high risk pregnancies, unspecified trimester] Onset: 5 Episodic Other complications [...] , second trimester] Onset: 5 Episodic Other connective tissue disease (1 source) H/O: rheumatoid arthritis; Translations: [History of rheumatoid arthritis] Onset: 5 02-25-2016 Episodic Other female genital disorders (1 source) History of recurrent miscarriage - not ; Translations: [History of recurrent miscarriages, not currently ] Onset: 5 02-25-2016 Episodic Other female genital disorders (1 source) Recurrent loss; Translations: [Recurrent loss] Onset: 5 Episodic Other gastrointestinal disorders (1 source) Constipation; [...] Resolved: 5 02-11-2025 Episodic Residual codes; unclassified (2 sources) 29 weeks gestation of ; Translations: [29 weeks gestation of ([facility])] Onset: 5 Episodic Residual codes; unclassified (1 source) 32 weeks gestation of ; Translations: [32 weeks gestation of ([facility])] Onset: 5 Episodic Residual codes; unclassified (1 source) 30 weeks gestation of ; Translations: [30 weeks gestation of ([facility])] Onset: 5 Episodic Residual codes; unclassified (1 source) 28 weeks gestation of ; Translations: [28 weeks gestation of ([facility])] Onset: 5 Episodic Residual codes; unclassified (3 sources) Other specified postprocedural states; Translations: [Other specified postprocedural states] Onset: 5 Episodic Residual codes; unclassified (1 source) 27 weeks gestation of ; Translations: [27 weeks gestation of ([facility])] Onset: 5 Episodic Residual codes; unclassified (1 source) 26 weeks gestation of ; Translations: [26 weeks gestation of ([facility])] Onset: 5 Episodic Residual codes; unclassified (1 source) Family [...] weeks gestation of ] Onset: 4 Episodic Respiratory failure; insufficiency; arrest (adult) (1 [...] Name Value Interpretation Reference Range Facility MR/BMS.BPon 06-02-2025 MR/BMS.BP Normal [facility] Acute Abdomen Inc Cheston Acute Abdomen Inc Chest Normal [facility] Basic Metabolic Profile (BMP )on 05-20-2025 BUN/CRE 15.1 RATIO Normal 08-24 [facility] Comment on above: Performed By: #### L 100.0100, L500.3400, L501.2450, L500.2500 ####[facility] [address] [place], [address] Calcium [Mass/Vol] 9.3 mg/dL Normal 7.6-11.0 [facility] Comment on above: Performed By: #### L 100.0100, L500.3400, L501.2450, L500.2500 ####[facility] [address] [place], [address] Chloride [Moles/Vol] 103 mmol/L Normal 98-108 [facility] Comment on above: Performed By: #### L 100.0100, L500.3400, L501.2450, L500.2500 ####[facility] [address] [place], [address] CO2 [Moles/Vol] 20.0 mmol/L Low 21.0-32.0 [facility] Comment on above: Performed By: #### L 100.0100, L500.3400, L501.2450, L500.2500 ####[facility] [address] [place], [address] Creatinine [Mass/Vol] 0.80 mg/dL Normal 0.70-1.20 [facility] Comment on above: Performed By: #### L 100.0100, L500.3400, L501.2450, L500.2500 ####[facility] [address] [place], [address] ECRCL 137.75 ml/min Normal 50-250 [facility] Comment on above: Performed By: #### L 100.0100, L500.3400, L501.2450, L500.2500 ####[facility] [address] [place], [address] GAP 13 Normal 5-15 [facility] Comment on above: Performed By: #### L 100.0100, L500.3400, L501.2450, L500.2500 ####[facility] [address] [place], [address] GFR/1.73 sq M.predicted among non-blacks MDRD (S/P/Bld) [Vol rate/Area] 98 mL/min/{1.73_m2} Normal >60 [facility] Comment on above: Result Comment: mL/m in/1.73m2 CKD-EPI Creatinine Equation (2020) Performed By: #### L 100.0100, L500.3400, L501.2450, L500.2500 ####[facility] [address] [place], [address] Glucose [Mass/Vol] 72 mg/dL Normal 70-99 [facility] Comment on above: Performed By: #### L 100.0100, L500.3400, L501.2450, L500.2500 ####[facility] [address] [place], [address] Potassium [Moles/Vol] 3.9 mmol/L Normal 3.3-5.1 [facility] Comment on above: Result Comment: Hemo lysis present, Results??could be affected.?? Performed By: #### L 100.0100, L500.3400, L501.2450, L500.2500 ####[facility] [address] [place], [address] Sodium [Moles/Vol] 136 mmol/L Normal 133-145 [facility] Comment on above: Performed By: #### L 100.0100, L500.3400, L501.2450, L500.2500 ####[facility] [address] [place], [address] Urea nitrogen [Mass/Vol] 12 mg/dL Normal 4-19 [facility] Comment on above: Performed By: #### L 100.0100, L500.3400, L501.2450, L500.2500 ####[facility] [address] [place], [address] CBC W/Diff, Automatedon 07-1 6-2025 Platelets (Bld) [#/Vol] 310 10*3/uL Normal 150-450 [facility] Comment on above: Performed By: #### L 100.0100, L500.3400, L501.2450, L500.2500 ####[facility] [address] [place], [address] Emergency Department Summary on 05-20-2025 Emergency Department Summary Normal [facility] Lipaseon 05-20-2025 Lipase [Catalytic activity/Vol] 23 U/L Normal 13-75 [facility] Comment on above: Result Comment: Anna Marie willard note:LIPASE revised reference range effective 23.New Lipase methodology. Expected to produce lower valuesthan the previous assay method.NEW Reference Range: 13 - 75 U/L Performed By: #### L 100.0100, L500.3400, L501.2450, L500.2500 ####[facility] [address] [place], [address] Liver Profileon 05-20-2025 Albumin [Mass/Vol] 4.3 g/dL Normal 3.5-5.0 [facility] Comment on above: Performed By: #### L 100.0100, L500.3400, L501.2450, L500.2500 ####[facility] [address] [place], [address] ALK PHOS 104 U/L Normal 35-104 [facility] Comment on above: Performed By: #### L 100.0100, L500.3400, L501.2450, L500.2500 ####[facility] [address] [place], [address] ALT [Catalytic activity/Vol] 29 U/L Normal <=34 [facility] Comment on above: Performed By: #### L 100.0100, L500.3400, L501.2450, L500.2500 ####[facility] [address] [place], [address] AST [Catalytic activity/Vol] 34 U/L High <=31 [facility] Comment on above: Result Comment: Hemo lysis present, Results??could be affected.?? Performed By: #### L 100.0100, L500.3400, L501.2450, L500.2500 ####[facility] [address] [place], [address] Bilirubin [Mass/Vol] 0.81 mg/dL Normal 0.00-1.30 [facility] Comment on above: Performed By: #### L 100.0100, L500.3400, L501.2450, L500.2500 ####[facility] [address] [place], [address] Bilirubin.direct [Mass/Vol] 0.20 mg/dL Normal 0.00-0.30 [facility] Comment on above: Result Comment: Hemo lysis present, Results??could be affected.?? Performed By: #### L 100.0100, L500.3400, L501.2450, L500.2500 ####[facility] [address] [place], [address] Globulin (S) [Mass/Vol] 3.6 g/dL Normal 2.2-4.2 [facility] Comment on above: Performed By: #### L 100.0100, L500.3400, L501.2450, L500.2500 ####[facility] [address] [place], [address] T PROT 7.9 g/dL Normal 5.9-8.4 [facility] Comment on above: Performed By: #### L 100.0100, L500.3400, L501.2450, L500.2500 ####[facility] [address] [place], [address] ,Serum,hCG Quali.on 07-16-2025 HCG, SERUM QUAL Negative Normal [facility] Comment on above: Performed By: #### L 700.6800 ####[facility] [address] [place], [place], [id number] MR/BMS.BPon 04-30-2025 MR/BMS.BP Normal [facility] MR/BMS.BPon 04-24-2025 MR/BMS.BP Normal [facility] MR/BMS.BPon 04-14-2025 MR/BMS.BP Normal [facility] MR/BMS.BPon 04-07-2025 MR/BMS.BP Normal [facility] MR/BMS.BPon 04-02-2025 MR/BMS.BP Normal [facility] MR/BMS.BPon 03-24-2025 MR/BMS.BP Normal [facility] MR/BMS.BPon 03-18-2025 MR/BMS.BP Normal [facility] BASIC METABOLIC PANEL WITH A NION GAPon 03-11-2025 BUN/CREATININE RATIO SEE NOTE: Normal 6-22 [facility] Comment on above: Order Comment: FASTI NG:NO FASTING: NO Result Comment: Not Reported: BUN and Creatinine are within reference range. Performed By: #### 9 2498 #### [facility] [address], [address] [place] [address] Pre Planning Advisor: Salvador Swanson MD Calcium [Mass/Vol] 8.9 mg/dL Normal 8.6-10.2 [facility] Comment on above: Order Comment: FASTI NG:NO FASTING: NO Performed By: #### 9 2498 #### [facility] [address], [address] [place] [address] Pre Planning Advisor: Salvador Swanson MD Chloride [Moles/Vol] 107 mmol/L Normal 98-110 [facility] Comment on above: Order Comment: FASTI NG:NO FASTING: NO Performed By: #### 9 2498 #### [facility] [address], [address] [place] [address] Pre Planning Advisor: Salvador Swanson MD CO2 [Moles/Vol] 22 mmol/L Normal 20-32 [facility] Comment on above: Order Comment: FASTI NG:NO FASTING: NO Performed By: #### 9 9878 #### [facility] [address], [address] [place] [address] Pre Planning Advisor: Salvador Swanson MD Creatinine [Mass/Vol] 0.71 mg/dL Normal 0.50-0.[address] [facility] Comment on above: Order Comment: FASTI NG:NO FASTING: NO Performed By: #### 9 1752 #### [facility] [address], [address] [place] [address] Pre Planning Advisor: Salvador Swanson MD ELECTROLYTE BALANCE 13 mmol/L (calc) Normal 7-17 [facility] Comment on above: Order Comment: FASTI NG:NO FASTING: NO Performed By: #### 9 4648 #### [facility] [address], [address] [place] [address] Pre Planning Advisor: Salvador Swanson MD GFR/1.73 sq M.predicted among non-blacks MDRD (S/P/Bld) [Vol rate/Area] 113 mL/min/{1.73_m2} Normal > OR = 60 [facility] Comment on above: Order Comment: FASTI NG:NO FASTING: NO Performed By: #### 9 0001 #### [facility] [address], [address] [place] [address] Pre Planning Advisor: Salvador Swanson MD Glucose [Mass/Vol] 77 mg/dL Normal 65-139 [facility] Comment on above: Order Comment: FASTI NG:NO FASTING: NO Result Comment: Non-fasting reference interval Performed By: #### 9 7848 #### [facility] [address], [address] [place] [address] Pre Planning Advisor: Salvador Swanson MD Potassium [Moles/Vol] 3.9 mmol/L Normal 3.5-5.3 [facility] Comment on above: Order Comment: FASTI NG:NO FASTING: NO Performed By: #### 9 0937 #### [facility] [address], [address] [place] [address] Pre Planning Advisor: Salvador Swanson MD Sodium [Moles/Vol] 142 mmol/L Normal 135-146 [facility] Comment on above: Order Comment: FASTI NG:NO FASTING: NO Performed By: #### 9 2498 #### [facility] [address], [address] [place] [address] Pre Planning Advisor: Salvador Swanson MD Urea nitrogen [Mass/Vol] 8 mg/dL Normal 7-25 [facility] Comment on above: Order Comment: FASTI NG:NO FASTING: NO Performed By: #### 9 2498 #### [facility] [address], [address] [place] [address] Pre Planning Advisor: Salvador Swanson MD Basic metabolic 2000 panelon 03-11-2025 Anion gap [Moles/Vol] 13 mmol/L [facility] Calcium [Mass/Vol] 8.9 mg/dL 8.6 - 10. 2 mg/dL [facility] Chloride [Moles/Vol] 107 mmol/L 98 - 11 0 mmol/L [facility] CO2 [Moles/Vol] 22 mmol/L 20 - 32 mmol/L [facility] Creatinine [Mass/Vol] 0.71 mg/dL 0.50 - 0.97 mg/dL [facility] GFR/1.73 sq M.predicted among non-blacks MDRD (S/P/Bld) [Vol rate/Area] 113 mL/min/{1.73_m2} > OR = 60 mL/min/1.73m 2 [facility] Glucose [Mass/Vol] 77 mg/dL 65 - 139 mg/dL [facility] Comment on above: Non-fasting reference interval Potassium [Moles/Vol] 3.9 mmol/L 3.5 - 5.3 mmol/L [facility] Sodium [Moles/Vol] 142 mmol/L 135 - 146 mmol/L [facility] Urea nitrogen [Mass/Vol] 8 mg/dL 7 - 25 mg/dL [facility] Urea nitrogen/Creatinine [Mass ratio] SEE NOTE: [facility] Comment on above: Not Reported: BUN an d Creatinine are within reference range. FASTING:NO FASTING: NO [facility] Glucose Test strip manual (B ld) [Mass/Vol]on 03-10-2025 Glucose [Mass/Vol] 123 mg/dL High 74 - 99 mg/dL [facility] Interpretation and review of laboratory results [facility] Glucose [Mass/Vol] 123 mg/dL High 74-99 [facility] Comment on above: Performed By: #### 2 7298-9 #### QUIN Simon ([id number]) [facility] ([facility]) [id number] [place] [address] CBC (INCLUDES DIFF/PLT)on Basophils (Bld) [#/Vol] 0.053 10*3/uL Normal 0-200 [facility] Comment on above: Performed By: #### 7 600, 622, 6399, 18547, 80412 #### [facility] [address], [address] [place], [place] [id number] Pre Planning Advisor: Salvador Swanson MD #### 945 #### [facility]/[address] [place], [place] Pre Planning Advisor: Yaya Alvarez M.D.,PhD Basophils/100 WBC (Bld) 0.6 % Normal [facility] Comment on above: Performed By: #### 7 600, 622, 6399, 35833, 00839 #### [facility] [address], [address] [place] [address] Pre Planning Advisor: Salvador Swanson MD #### 945 #### [facility]/[address] [place], [place] Pre Planning Advisor: Yaya Alvarez M.D.,PhD Eosinophils (Bld) [#/Vol] 0.365 10*3/uL Normal 15-500 [facility] Comment on above: Performed By: #### 7 600, 622, 6399, 98056, 75061 #### [facility] [address], [address] [place], [place] [id number] Pre Planning Advisor: Salvador Swanson MD #### 945 #### [facility] [address] [place] Pre Planning Advisor: Yaya Alvarez M.D.,PhD Eosinophils/100 WBC (Bld) 4.1 % Normal [facility] Comment on above: Performed By: #### 7 600, 622, 6399, 98891, 88496 #### [facility] of [place] [address], [address] [place], [place] [address] Pre Planning Advisor: Salvador Swanson MD #### 945 #### [facility] [place], [place] Pre Planning Advisor: Yaya Alvarez M.D.,PhD Erythrocyte distribution width (RBC) [Ratio] 13.0 % Normal 11.0-15.0 [facility] Comment on above: Performed By: #### 7 600, 622, 6399, 35288, 30133 #### [facility] of [address], [address] [place], [place] [address] Pre Planning Advisor: Salvador Swanson MD #### 945 #### [facility]/[place] [id number] [facility] [address] [place] Pre Planning Advisor: Yaya Alvarez M.D.,PhD Hematocrit (Bld) [Volume fraction] 37.1 % Normal 35.0-45.0 [facility] Comment on above: Performed By: #### 7 600, 622, 6399, 54265, 30499 #### [facility] of [address], [address] [place], [place] [address] Pre Planning Advisor: Salvador Swanson MD #### 945 #### [facility] [address] [place] Pre Planning Advisor: Yaya Alvarez M.D.,PhD Hemoglobin (Bld) [Mass/Vol] 11.8 g/dL Normal 11.7-15.5 [facility] Comment on above: Performed By: #### 7 600, 622, 6399, 30319, 45046 #### [facility] of [address] Pre Planning Advisor: Salvador Swanson MD #### 945 #### [facility]/[place] [id number] [facility] [place], [place] Pre Planning Advisor: Yaya Alvarez M.D.,PhD Lymphocytes (Bld) [#/Vol] 2.243 10*3/uL Normal 850-3900 [facility] Comment on above: Performed By: #### 7 600, 622, 6399, 24300, 74750 #### [facility] of [address] Pre Planning Advisor: Salvador Swanson MD #### 945 #### [facility]/[address] [place], [place] Pre Planning Advisor: Yaya Alvarez M.D.,PhD Lymphocytes/100 WBC (Bld) 25.2 % Normal [facility] Comment on above: Performed By: #### 7 600, 622, 6399, 23952, 95731 #### [facility] of [place] [id number] Pre Planning Advisor: Salvador Swanson MD #### 945 #### [facility]/[place] [id number] [facility] [place], [place] Pre Planning Advisor: Yaya Alvarez M.D.,PhD MCH (RBC) [Entitic mass] 26.9 pg Low 27.0-33.0 [facility] Comment on above: Performed By: #### 7 600, 622, 6399, 61724, 15784 #### [facility] of [place] [id number] Pre Planning Advisor: Salvador Swanson MD #### 945 #### [facility]/[place] [id number] [facility] [address] [place] Pre Planning Advisor: Yaya Alvarez M.D.,PhD MCHC (RBC) [Mass/Vol] 31.8 [...] Performed By: #### 7 600, 622, 6399, 22888, 36025 #### [facility] [place] [address] Pre Planning Advisor: Salvador Swanson MD #### 945 #### [facility] [address] [place] Pre Planning Advisor: Yaya Alvarez M.D.,PhD MCV (RBC) [Entitic vol] 84.7 fL Normal 80.0-100.0 [facility] Comment on above: Performed By: #### 7 600, 622, 6399, 38938, 06945 #### [facility] [place] [address] Pre Planning Advisor: Salvador Swanson MD #### 945 #### [facility] [address] [place] Pre Planning Advisor: Yaya Alvarez M.D.,PhD Monocytes (Bld) [#/Vol] 0.481 10*3/uL Normal 200-950 [facility] Comment on above: Performed By: #### 7 600, 622, 6399, 72507, 41177 #### [facility] [place] [address] Pre Planning Advisor: Salvador Swanson MD #### 945 #### [facility]/[place] [id number] [facility] [address] [place] Pre Planning Advisor: Yaya Alvarez M.D.,PhD Monocytes/100 WBC (Bld) 5.4 % Normal [facility] Comment on above: Performed By: #### 7 600, 622, 6399, 06104, 16704 #### [facility] of [place] [address], [address] [place], [place] [address] Pre Planning Advisor: Salvador Swanson MD #### 945 #### [facility]/[address] [place], [place] Pre Planning Advisor: Yaya Alvarez M.D.,PhD Neutrophils (Bld) [#/Vol] 5.758 10*3/uL Normal 7372-9120 [facility] Comment on above: Performed By: #### 7 600, 622, 6399, 85942, 24603 #### [facility] of [address], [address] [place] [address] Pre Planning Advisor: Salvador Swanson MD #### 945 #### [facility]/[address] [place], [place] Pre Planning Advisor: Yaya Alvarez M.D.,PhD Neutrophils/100 WBC (Bld) 64.7 % Normal [facility] Comment on above: Performed By: #### 7 600, 622, 6399, 80143, 47440 #### [facility] of [address], [address] [place], [place] [phone] Pre Planning Advisor: Salvador Swanson MD #### 945 #### [facility]/[address] [place], [place] Pre Planning Advisor: Yaya Alvarez M.D.,PhD Platelet mean volume (Bld) [Entitic vol] 10.2 fL Normal 7.5-12.5 [facility] Comment on above: Performed By: #### 7 600, 622, 6399, 71233, 85302 #### [facility] of [place] [address], [address] [place] [address] Pre Planning Advisor: Salvador Swanson MD #### 945 #### [facility]/[address] [place], [place] Pre Planning Advisor: Yaya Alvarez M.D.,PhD Platelets (d) [#/Vol] 392 10*3/uL Normal 140-400 [facility] Comment on above: Performed By: #### 7 600, 622, 6399, 89700, 25181 #### [facility] of [address], [address] [place] [address] Pre Planning Advisor: Salvador Swanson MD #### 945 #### [facility] [place] Pre Planning Advisor: Yaya Alvarez M.D.,PhD RBC (d) [#/Vol] 4.38 10*6/uL Normal 3.80-5.10 [facility] Comment on above: Performed By: #### 7 600, 622, 6399, 86809, 44435 #### [facility] of [address], [address] [place] [address] Pre Planning Advisor: Salvador Swanson MD #### 945 #### [facility] [place] Pre Planning Advisor: Yaya Alvarez M.D.,PhD WBC (d) [#/Vol] 8.9 10*3/uL Normal 3.8-10.8 [facility] Comment on above: Performed By: #### 7 600, 622, 6399, 61670, 25036 #### [facility] of [place] [address] Pre Planning Advisor: Salvador Swanson MD #### 945 #### [facility]/[place] [id number] [facility] [address] [place] Pre Planning Advisor: Yaya W Antonio M.D.,PhD COMPREHENSIVE METABOLIC PANE L W/ANION GAPon 03-09-2025 Albumin [Mass/Vol] 4.0 g/dL Normal 3.6-5.1 [facility] Comment on above: Performed By: #### 7 600, 622, 6399, 72989, 15334 #### [facility] of [address], [address] [place] [address] Pre Planning Advisor: Salvador Swanson MD #### 945 #### [facility]/[address] [place], [place] Pre Planning Advisor: Yaya Alvarez M.D.,PhD ALP [Catalytic activity/Vol] 98 U/L Normal 31-125 [facility] Comment on above: Performed By: #### 7 600, 622, 6399, 94916, 44667 #### [facility] of [address], [address] [place], [place] [id number] Pre Planning Advisor: Salvador Swanson MD #### 945 #### [facility]/[address] [place] Pre Planning Advisor: Yaya Alvarez M.D.,PhD ALT [Catalytic activity/Vol] 16 U/L Normal 6-29 [facility] Comment on above: Performed By: #### 7 600, 622, 6399, 21465, 62720 #### [facility] of [address], [address] [place] [address] Pre Planning Advisor: Salvador Swanson MD #### 945 #### [facility]/[address] [place] Pre Planning Advisor: Yaya Alvarez M.D.,PhD AST [Catalytic activity/Vol] 13 U/L Normal 10-30 [facility] Comment on above: Performed By: #### 7 600, 622, 6399, 77590, 69476 #### [facility] of [address], [address] [place] [address] Pre Planning Advisor: Salvador Swanson MD #### 945 #### [facility] [address] [place] Pre Planning Advisor: Yaya Alvarez M.D.,PhD Bilirubin [Mass/Vol] 0.8 mg/dL Normal 0.2-1.2 [facility] Comment on above: Performed By: #### 7 600, 622, 6399, 22828, 36055 #### [facility] of [address], [address] [place], [place] [id number] Pre Planning Advisor: Salvador Swanson MD #### 945 #### [facility]/[place] [id number] [facility] [address] [place] Pre Planning Advisor: Yaya Alvarez M.D.,PhD Calcium [Mass/Vol] 9.1 mg/dL Normal 8.6-10.2 [facility] Comment on above: Performed By: #### 7 600, 622, 6399, 45515, 13568 #### [facility] [address], [address] [place], [place] [address] Pre Planning Advisor: Salvador Swanson MD #### 945 #### [facility] [place] Pre Planning Advisor: Yaya Alvarez M.D.,PhD Chloride [Moles/Vol] 103 mmol/L Normal 98-110 [facility] Comment on above: Performed By: #### 7 600, 622, 6399, 87247, 08681 #### [facility] [address], [address] [place], [place] [phone] Pre Planning Advisor: Salvador Swanson MD #### 945 #### [facility] [address] [place] Pre Planning Advisor: Yaya Alvarez M.D.,PhD CO2 [Moles/Vol] 24 mmol/L Normal 20-32 [facility] Comment on above: Performed By: #### 7 600, 622, 6399, 76298, 56215 #### [facility] of [address], [address] [place], [place] [phone] Pre Planning Advisor: Salvador Swanson MD #### 945 #### [facility] [place] Pre Planning Advisor: Yaya Alvarez M.D.,PhD Creatinine [Mass/Vol] 0.68 mg/dL Normal 0.50-0.[address] [facility] Comment on above: Performed By: #### 7 600, 622, 6399, 77499, 16954 #### [facility] of [address] Pre Planning Advisor: Salvador Swanson MD #### 945 #### [facility] [place] Pre Planning Advisor: Yaya Alvarez M.D.,PhD ELECTROLYTE BALANCE 11 mmol/L (calc) Normal 7-17 [facility] Comment on above: Performed By: #### 7 600, 622, 6399, 96037, 22884 #### [facility] of [place] [id number] Pre Planning Advisor: Salvador Swanson MD #### 945 #### [facility] [place] Pre Planning Advisor: Yaya Alvraez M.D.,PhD GFR/1.73 sq M.predicted among non-blacks MDRD (S/P/Bld) [Vol rate/Area] 116 mL/min/{1.73_m2} Normal > OR = 60 [facility] Comment on above: Performed By: #### 7 600, 622, 6399, 95921, 42811 #### [facility] of [address], [address] [place], [place] [phone] Pre Planning Advisor: Salvador Swanson MD #### 945 #### [facility] [address] [place] Pre Planning Advisor: Yaya Alvarez M.D.,PhD Glucose [Mass/Vol] 112 mg/dL High 65-99 [facility] Comment on above: Result Comment: Fasting reference interval For someone without known diabetes, a glucose value between 100 and 125 mg/dL is consistent with prediabetes and should be confirmed with a follow-up test. Performed By: #### 7 600, 622, 6399, 31882, 34083 #### [facility] [address], [address] [place], [place] [phone] Pre Planning Advisor: Salvador Swanson MD #### 945 #### [facility] [address] [place] Pre Planning Advisor: Yaya Alvarez M.D.,PhD Potassium [Moles/Vol] 4.0 mmol/L Normal 3.5-5.[address] [facility] [address] [facility] Comment on above: Performed By: #### 7 600, 622, 6399, 46986, 07482 #### [facility] [address], [address] [place], [place] [address] Pre Planning Advisor: Salvador Swanson MD #### 945 #### [facility] [address] [facility] [place] Pre Planning Advisor: Yaya Alvarez M.D.,PhD Protein [Mass/Vol] 7.4 g/dL Normal 6.1-8.1 [facility] Comment on above: Performed By: #### 7 600, 622, 6399, 04679, 43392 #### [facility] [address], [address] [place], [place] [phone] Pre Planning Advisor: Salvador Swanson MD #### 945 #### [facility] [address] [facility] [address] [place] Pre Planning Advisor: Yaya Alvarez M.D.,PhD Sodium [Moles/Vol] 138 mmol/L Normal 135-146 [facility] Comment on above: Performed By: #### 7 600, 622, 6399, 85719, 42021 #### [facility] [address], [address] [place] [address] Pre Planning Advisor: Salvador Swanson MD #### 945 #### [facility]/[place] [id number] [facility] [place] Pre Planning Advisor: Yaya Alvarez M.D.,PhD Urea nitrogen [Mass/Vol] 10 mg/dL Normal 7-25 [facility] Comment on above: Performed By: #### 7 600, 622, 6399, 94071, 43127 #### [facility] [place] [address] Pre Planning Advisor: Salvador Swanson MD #### 945 #### [facility]/[address] [place], [place] Pre Planning Advisor: Yaya Alvarez M.D.,PhD HEMOGLOBIN A1c WITH eAGon eAG (mmol/L) 7.7 mmol/L Normal [facility] Comment on above: Performed By: #### 1 759, 44841 #### [facility] [place] [address] Pre Planning Advisor: Salvador Swanson MD HbA1c (Bld) [Mass fraction] [...] diabetes for children. Performed By: #### 1 309, 69168 #### [facility] [address], [address] [place] [address] Pre Planning Advisor: Salvador Swanson MD Magnesium [Mass/Vol] 140 mg/dL Normal [facility] Comment on above: Performed By: #### 1 759, 41008 #### [facility] [address], [address] [place] [address] Pre Planning Advisor: Salvador Swanson MD LIPID PANEL, [facility] 0 Cholesterol [Mass/Vol] 218 mg/dL High <200 [facility] Comment on above: Order Comment: FASTI NG:YES FASTING: YES Performed By: #### 7 600, 622, 6399, 54711, 03912 #### [facility] [address], [address] [place] [address] Pre Planning Advisor: Salvador Swanson MD #### 945 #### [facility] [place] Pre Planning Advisor: Yaya Alvarez M.D.,PhD Cholesterol in HDL [Mass/Vol] 58 mg/dL Normal > OR = 50 [facility] Comment on above: Order Comment: FASTI NG:YES FASTING: YES Performed By: #### 7 600, 622, 6399, 17938, 52804 #### [facility] [address], [address] [place] [address] Pre Planning Advisor: Salvador Swanson MD #### 945 #### [facility]/[address] [place], [place] Pre Planning Advisor: Yaya Alvarez M.D.,PhD Cholesterol in LDL [Mass/Vol] 139 mg/dL High [facility] Comment on above: Order Comment: FASTI NG:YES FASTING: YES Result Comment: Refe rence range: <100 Desirable range <100 mg/dL for primary prevention; <70 mg/dL for patients with CHD or diabetic patients with > or = 2 CHD risk factors. LDL-C is now calculated using the Darren-Kennedy calculation, which is a validated novel method providing better accuracy than the Friedewald equation in the estimation of LDL-C. Darren SULLIVAN et al. ILIANA. 2013;310(19): 9890-6227 (http://education.[employer]TD/faq/VSF002) Performed By: #### 7 600, 622, 6399, 63520, 37700 #### [facility] [address], [address] [place] [address] Pre Planning Advisor: Salvador Swanson MD #### 945 #### [facility]/[place] [id number] [facility] [place] Pre Planning Advisor: Yaya Alvarez M.D.,PhD Cholesterol.total/Cho lesterol in HDL [Mass ratio] 3.8 {ratio} Normal <5.0 [facility] Comment on above: Order Comment: FASTI NG:YES FASTING: YES Performed By: #### 7 600, 622, 6399, 73166, 85282 #### [facility] [address], [address] [place] [address] Pre Planning Advisor: Salvador Swanson MD #### 945 #### [facility]/[place] [id number] [facility] [place] Pre Planning Advisor: Yaya Alvarez M.D.,PhD NON HDL CHOLESTEROL 160 mg/dL (calc) High <130 [facility] Comment on above: Order Comment: FASTI NG:YES FASTING: YES Result Comment: For patients with diabetes plus 1 major ASCVD risk factor, treating to a non-HDL-C goal of <100 mg/dL (LDL-C of <70 mg/dL) is considered a therapeutic option. Performed By: #### 7 600, 622, 6399, 42625, 43733 #### [facility] [address], [address] [place] [address] Pre Planning Advisor: Salvador Swanson MD #### 945 #### [facility]/[place] [id number] [facility] [place] Pre Planning Advisor: Yaya Alvarez M.D.,PhD Triglyceride [Mass/Vol] 99 mg/dL Normal <150 [facility] Comment on above: Order Comment: FASTI NG:YES FASTING: YES Performed By: #### 7 600, 622, 6399, 17593, 22162 #### [facility] [address], [address] [place] [address] Pre Planning Advisor: Salvador Swanson MD #### 945 #### [facility]/[address] [place] Pre Planning Advisor: Yaya Alvarez M.D.,PhD MAGNESIUMon 03-09-2025 Magnesium [Mass/Vol] 2.1 mg/dL Normal 1.5-2.5 [facility] Comment on above: Performed By: #### 7 600, 622, 6399, 73548, 60585 #### [facility] [address], [address] [place] [address] Pre Planning Advisor: Salvador Swanson MD #### 945 #### [facility]/[address] [place] Pre Planning Advisor: Yaya Alvarez M.D.,PhD TSH W/REFLEX TO FT4on 2024 TSH W/REFLEX TO FT4 1.47 mIU/L Normal [facility] Comment on above: Result Comment: Refe rence Range > or = 20 Years 0.40-4.50 Ranges First trimester 0.26-2.66 Second trimester 0.55-2.73 Third trimester 0.43-2.91 Performed By: #### 7 600, 622, 6399, 73500, 57907 #### [facility] [address], [address] [place] [address] Pre Planning Advisor: Salvador Swanson MD #### 945 #### [facility]/[place] [id number] [facility] [place] Pre Planning Advisor: Yaya Alvarez M.D.,PhD ZINCon 03-09-2025 ZINC 58 mcg/dL Low 60-130 [facility] Comment on above: Result Comment: This test was developed and its analytical performance characteristics have been determined by [employer] [place], [place]. It has not been cleared or approved by the U.S. Food and Drug Administration. This assay has been validated pursuant to the CLIA regulations and is used for clinical purposes. Performed By: #### 7 600, 622, 6496, 76996, 85581 #### [facility] [address], [address] [place] [address] Pre Planning Advisor: Salvador Swanson MD #### 945 #### [facility] [address] [facility] [place] [address] Pre Planning Advisor: Yaya Alvarez M.D.,PhD MR/BMS.BPon 03-05-2025 MR/BMS.BP Normal [facility] Glucose Test strip manual (B ld) [Mass/Vol]on 03-01-2025 Glucose [Mass/Vol] 105 mg/dL High 74 - 99 mg/dL [facility] Interpretation and review of laboratory results Abnormal [facility] Glucose [Mass/Vol] 105 mg/dL High 74-99 [facility] Comment on above: Performed By: #### 3 5255-9 #### QUIN Simon ([id number]) [facility] ([facility]) [address] [place] [address] MR/BMS.BPon 02-24-2025 MR/BMS.BP Normal [facility] MR/BMS.BPon 02-19-2025 MR/BMS.BP Normal [facility] CBC W Auto Differential pane l (Bld)on 02-16-2025 Basophils (Bld) [#/Vol] 0.08 10*3/uL [facility] Basophils/100 WBC (Bld) 0.7 % 0.0 - 2.0 % [facility] Eosinophils (Bld) [#/Vol] 0.01 10*3/uL [facility] Eosinophils/100 WBC (Bld) 0.1 % 0.0 - 6.0 % [facility] Erythrocyte distribution width (RBC) [Ratio] 13.4 % 11.5 - 14.5 % [facility] Hematocrit (Bld) [Volume fraction] 35.2 % Low 36.0 - 46.0 % [facility] Hemoglobin (Bld) [Mass/Vol] 11 g/dL Low 12.0 - 16.0 g/dL [facility] Immature granulocytes (Bld) [#/Vol] 0.3 10*3/uL [facility] Immature granulocytes/100 WBC (Bld) 2.8 % High 0.0 - 0.9 % [facility] Comment on above: Immature Granulocyte Count (IG) includes promyelocytes, myelocytes and metamyelocytes but does not include bands. Percent differential counts (%) should be interpreted in the context of the absolute cell counts (cells/UL). Interpretation and review of laboratory results Abnormal [facility] Lymphocytes (Bld) [#/Vol] 2.35 10*3/uL [facility] Lymphocytes/100 WBC (Bld) 22 % 13.0 - 44.0 % [facility] MCH (RBC) [Entitic mass] 27.2 pg 26.0 - 34.0 pg [facility] MCHC (RBC) [Mass/Vol] 31.3 g/dL Low 32.0 - 36.0 g/dL [facility] MCV (RBC) [Entitic vol] 87 fL 80 - 100 fL [facility] Monocytes (Bld) [#/Vol] 0.59 10*3/uL [facility] Monocytes/100 WBC (Bld) 5.5 % 2.0 - 10.0 % [facility] Neutrophils (Bld) [#/Vol] 7.34 10*3/uL [facility] Comment on above: Percent differential counts (%) should be interpreted in the context of the absolute cell counts (cells/uL). Neutrophils/100 WBC (Bld) 68.9 % 40.0 - 80.0 % [facility] Nucleated RBC/100 WBC (Bld) [Ratio] 0 % [facility] Platelets (Bld) [#/Vol] 314 10*3/uL [facility] RBC (Bld) [#/Vol] 4.05 10*6/uL [facility] WBC (Bld) [#/Vol] 10.7 10*3/uL [facility] Basophils (Bld) [#/Vol] 0.08 x10*3/uL Normal 0.00-0.10 [facility] Comment on above: Performed By: #### 3 5255-9 #### QUIN Simon (14954) [facility] ([facility]) [address] [place] [address] Basophils/100 WBC (Bld) 0.7 % Normal 0.0-2.0 [facility] Comment on above: Performed By: #### 3 5255-9 #### QUIN Simon (54509) [facility] ([facility]) [address] [place] [address] Eosinophils (Bld) [#/Vol] 0.01 x10*3/uL Normal 0.00-0.70 [facility] Comment on above: Performed By: #### 3 5255-9 #### QUIN Simon ([id number]) [facility] ([facility]) [address] [place] [address] Eosinophils/100 WBC (Bld) 0.1 % Normal 0.0-6.0 [facility] Comment on above: Performed By: #### 3 5255-9 #### QUIN Simon ([id number]) [facility] ([facility]) [address] [place] [address] Erythrocyte distribution width (RBC) [Ratio] 13.4 % Normal 11.5-14.5 [facility] Comment on above: Performed By: #### 3 5255-9 #### QUIN Simon ([id number]) [facility] ([facility]) [address] [place] [address] Hematocrit (Bld) [Volume fraction] 35.2 % Low 36.0-46.0 [facility] Comment on above: Performed By: #### 3 5255-9 #### QUIN Simon ([id number]) [facility] ([facility]) [address] [place] [address] Hemoglobin (Bld) [Mass/Vol] 11.0 g/dL Low 12.0-16.0 [facility] Comment on above: Performed By: #### 3 5255-9 #### QUIN Simon ([id number]) [facility] ([facility]) [address] [place] [address] Immature granulocytes (Bld) [#/Vol] 0.30 x10*3/uL Normal 0.00-0.70 [facility] Comment on above: Performed By: #### 3 5255-9 #### QUIN Simon (91970) [facility] ([facility]) [id number] [place] [address] Immature granulocytes/100 WBC (Bld) 2.8 % High 0.0-0.9 [facility] Comment on above: Result Comment: Gayla ture Granulocyte Count (IG) includes promyelocytes, myelocytes and metamyelocytes but does not include bands. Percent differential counts (%) should be interpreted in the context of the absolute cell counts (cells/UL). Performed By: #### 3 5255-9 #### QUIN Simon ([id number]) [facility] ([facility]) [id number] [place] [address] Lymphocytes (Bld) [#/Vol] 2.35 x10*3/uL Normal 1.20-4.80 [facility] Comment on above: Performed By: #### 3 5255-9 #### QUIN Simon ([id number]) [facility] ([facility]) [address] [place] [address] Lymphocytes/100 WBC (Bld) 22.0 % Normal 13.0-44.0 [facility] Comment on above: Performed By: #### 3 5255-9 #### QUIN Simon (21000) [facility] ([facility]) [address] [place] [address] MCH (RBC) [Entitic mass] 27.2 pg Normal 26.0-34.0 [facility] Comment on above: Performed By: #### 3 5255-9 #### QUIN Simon (30006) [facility] ([facility]) [address] [place] [address] MCHC (RBC) [Mass/Vol] 31.3 g/dL Low 32.0-36.0 [place] Comment on above: Performed By: #### 3 5255-9 #### QUIN Simon ([id number]) [facility] ([facility]) [address] [place] [address] MCV (RBC) [Entitic vol] 87 fL Normal 80-100 [facility] Comment on above: Performed By: #### 3 5255-9 #### QUIN Simon ([id number]) [facility] ([facility]) [address] [place] [address] Monocytes (Bld) [#/Vol] 0.59 x10*3/uL Normal 0.10-1.00 [facility] Comment on above: Performed By: #### 3 5255-9 #### QUIN Simon ([id number]) [facility] ([facility]) [id number] [place] [address] Monocytes/100 WBC (Bld) 5.5 % Normal 2.0-10.0 [facility] Comment on above: Performed By: #### 3 5255-9 #### QUIN Simon ([id number]) [facility] ([facility]) [id number] [place] [address] 22427 Neutrophils (Bld) [#/Vol] 7.34 x10*3/uL Normal 1.20-7.70 [facility] Comment on above: Result Comment: Perc ent differential counts (%) should be interpreted in the context of the absolute cell counts (cells/uL). Performed By: #### 3 5255-9 #### QUIN Simon ([id number]) [facility] ([facility]) [address] [place] [address] Neutrophils/100 WBC (Bld) 68.9 % Normal 40.0-80.0 [facility] Comment on above: Performed By: #### 3 5255-9 #### QUIN Simon ([id number]) [facility] ([facility]) [address] [place] [address] 94428 Nucleated RBC/100 WBC (Bld) [Ratio] 0.0 /100 WBCs Normal 0.0-0.0 [facility] Comment on above: Performed By: #### 3 5255-9 #### QUIN Simon ([id number]) [facility] ([facility]) [address] [place] [address] 06710 Platelets (Bld) [#/Vol] 314 x10*3/uL Normal 150-450 [facility] Comment on above: Performed By: #### 3 5255-9 #### QUIN Simon ([id number]) [facility] ([facility]) [address] [place] [address] 21518 RBC (Bld) [#/Vol] 4.05 x10*6/uL Normal 4.00-5.20 [facility] Comment on above: Performed By: #### 3 5255-9 #### QUIN Simon ([id number]) [facility] ([facility]) [address] [place] [address] 17673 WBC (Bld) [#/Vol] 10.7 x10*3/uL Normal 4.4-11.3 [facility] Comment on above: Performed By: #### 3 5255-9 #### QUIN Simon ([id number]) [facility] ([facility]) [address] [place] [address] 69281 US AbdomenOrdered By: Eladio Matthews on 02-16-2025 [facility] Work Phone: Radiology Study observation (narrative) [facility] Work Phone: Glucose Test strip manual (B ld) [Mass/Vol]on 02-13-2025 Glucose [Mass/Vol] 125 mg/dL High 74 - 99 mg/dL [facility] Interpretation and review of laboratory results Abnormal [facility] Rubella virus IgG IA Qnon Rubella virus IgG IA Ql Positive Negative [facility] Work Phone: Rubella virus IgG Qn (S) 1.5 [IU]/mL <=0.7 IA IA [facility] Work Phone: NEGATIVE: No IgG antibodies [...] exposed to Rubella through infection or vaccination. [facility] Work Phone: [facility] Work Phone: Rubella virus IgG IA Ql Positive Normal Negative [facility] Comment on above: Order Comment: The b eta-hydroxybutyrate test performance characteristics have been validated by [facility]. This test has not been approved by the FDA; however such approval is not necessary. Performed By: #### 3 5255-9 #### QUIN Simon ([id number]) [facility] ([facility]) [address] [place] [address] Rubella virus IgG Qn (S) 1.5 IA Normal <=0.7 IA [facility] Comment on above: Order Comment: The b eta-hydroxybutyrate test performance characteristics have been validated by [facility]. This test has not been approved by the FDA; however such approval is not necessary. Performed By: #### 3 5255-9 #### QUIN Simon ([id number]) [facility] ([facility]) [address] [place] [address] Glucose Test strip manual (B ld) [Mass/Vol]on 02-12-2025 Glucose [Mass/Vol] 125 mg/dL High 74-99 [facility] Comment on above: Performed By: #### 3 5255-9 #### QUIN Simon ([id number]) [facility] ([facility]) [address] [place] [address] Glucose [Mass/Vol] 101 mg/dL High 74 - 99 mg/dL [facility] Interpretation and review of laboratory results Abnormal [facility] Glucose [Mass/Vol] 101 mg/dL High 74-99 [facility] Comment on above: Performed By: #### 3 5255-9 #### QUIN Simon ([id number]) [facility] ([facility]) [address] [place] [address] HBV surface Ag IA Qlon 02-12 Interpretation and review of laboratory results Normal [facility] HIV 1+2 Ab+HIV1 p24 Ag IA Ql on 02-12-2025 Interpretation and review of laboratory results Normal [facility] HIV Ag/Ab screen is performed using the Siemens Sociall HIV Ag/Ab Combo assay which detects the presence of HIV p24 antigen as well as antibodies to HIV-1 (Group M and O) and HIV-2. No laboratory evidence of HIV infection. If acute HIV infection is suspected, consider testing for HIV RNA by PCR (viral load). [facility] HIV 1/2 Antigen/Antibody Scr een with Reflex to Confirmationon 02-12-2025 HIV 1+2 Ab+HIV1 p24 Ag IA Ql Non-Reactive Nonreactive [facility] Hepatitis B surface antigeno n 02-12-2025 HBV surface Ag IA Ql Non-Reactive Nonreactive [facility] Comment on above: Biotin interference may cause falsely decreased results. Patients taking a Biotin dose of up to 5 mg/day should refrain from taking Biotin for 24 hours before sample collection. Providers may contact their local laboratory for further information. Rubella virus IgG IA QnOrder ed By: Naya Khan on 02-12-2025 Rubella virus IgG IA Ql Positive Negative [facility] Rubella virus IgG Qn (S) 1.5 [IU]/mL <=0.7 IA IA [facility] NEGATIVE: No IgG antibodies specific to [...] exposed to Rubella through infection or vaccination. [facility] Streptococcus.beta-hemolytic Org specific cx Ql (Genital specimen)Ordered By: Micheline Sutton on 02-12-2025 Interpretation and review of laboratory results Abnormal [facility] S. agalactiae Org specific cx Ql (Genital specimen) Isolated: Streptococcus agalactiae (Group B Streptococcus) Abnormal [facility] Streptococcus agalac tiae (Group B Streptococcus) is universally susceptible to beta-lactam antibiotics and vancomycin. Routine susceptibility testing not performed. For penicillin allergic patients, please contact the laboratory within 5 days of collection at to request susceptibility testing. [facility] Blood type and Indirect anti body screen panel (Bld)on 02-11-2025 ABO group Nom (Bld) O Unive [facility] Blood group antibody screen Ql Negative [facility] D Ag Ql (Bld) Positive [facility] ABO group Nom (Bld) O Normal [facility] Comment on above: Performed By: #### 1 4804-9 #### QUIN Simon ([id number]) [facility] ([facility]) [address] [place] [address] Blood group antibody screen Ql Negative [facility] Comment on above: Performed By: #### 1 4804-9 #### QUIN Simon ([id number]) [facility] ([facility]) [address] [place], [place] [address] D Ag Ql (Bld) Positive [facility] Comment on above: Performed By: #### 1 4804-9 #### QUIN Simon ([id number]) [facility] ([facility]) [address] [place], [place] [address] Glucose Test strip manual (B ld) [Mass/Vol]on 02-11-2025 Glucose [Mass/Vol] 110 mg/dL High 74 - 99 mg/dL [facility] Interpretation and review of laboratory results Abnormal [facility] Glucose [Mass/Vol] 110 mg/dL High 74-99 [facility] Comment on above: Performed By: #### 3 5255-9 #### QUIN Simon ([id number]) [facility] ([facility]) [address] [place] [address] 19627 Glucose [Mass/Vol] 96 mg/dL 74 - 99 mg/dL [facility] Interpretation and review of laboratory results Normal [facility] Glucose [Mass/Vol] 96 mg/dL Normal 74-99 [facility] Comment on above: Performed By: #### 3 5255-9 #### QUIN Simon ([id number]) [facility] ([facility]) [address] [place] [address] 33498 Glucose [Mass/Vol] 66 mg/dL Low 74 - 99 mg/dL [facility] Interpretation and review of laboratory results Abnormal [facility] Glucose [Mass/Vol] 66 mg/dL Low 74-99 [facility] Comment on above: Performed By: #### 1 4804-9 #### QUIN Simon ([id number]) [facility] ([facility]) [address] [place] [address] 57004 Glucose [Mass/Vol] 72 mg/dL Low 74 - 99 mg/dL [facility] Interpretation and review of laboratory results Abnormal [facility] Glucose [Mass/Vol] 72 mg/dL Low 74-99 [facility] Comment on above: Performed By: #### 1 4804-9 #### QUIN Simon ([id number]) [facility] ([facility]) [address] [place] [address] 08402 Glucose [Mass/Vol] 113 mg/dL High 74 - 99 mg/dL [facility] Interpretation and review of laboratory results Abnormal [facility] Glucose [Mass/Vol] 113 mg/dL High 74-99 [facility] Comment on above: Performed By: #### 1 4804-9 #### QUIN Simon ([id number]) [facility] ([facility]) [address] [place] [address] 91956 Glucose [Mass/Vol] 126 mg/dL High 74 - 99 mg/dL [facility] Interpretation and review of laboratory results Abnormal [facility] Glucose [Mass/Vol] 126 mg/dL High 74-99 [facility] Comment on above: Performed By: #### 1 4804-9 #### QUIN Simon ([id number]) [facility] ([facility]) [address] [place] [address] 90509 Glucose [Mass/Vol] 142 mg/dL High 74 - 99 mg/dL [facility] Interpretation and review of laboratory results Abnormal [facility] Glucose [Mass/Vol] 142 mg/dL High 74-99 [facility] Comment on above: Performed By: #### 1 4804-9 #### QUIN Simon ([id number]) [facility] ([facility]) [address] [place] [address] 96845 Glucose [Mass/Vol] 154 mg/dL High 74 - 99 mg/dL [facility] Interpretation and review of laboratory results Abnormal [facility] Glucose [Mass/Vol] 154 mg/dL High 74-99 [facility] Comment on above: Performed By: #### 1 4804-9 #### QUIN Simon ([id number]) [facility] ([facility]) [address] [place] [address] 26832 Prepare RBC: 1 Unitson 02-11 Blood Expiration Date 03/07/2025 11:59:00 PM EDT [facility] Dispense Status RE [facility] PRODUCT BLOOD TYPE 5100 [facility] PRODUCT CODE [id number] [facility] Unit ABO O [facility] Unit Number [id number] [facility] RH Positive [facility] UNIT VOLUME 279 [facility] XM INTEP COMP [facility] Glucose Test strip manual (B ld) [Mass/Vol]on 02-10-2025 Glucose [Mass/Vol] 138 mg/dL High 74 - 99 mg/dL [facility] Interpretation and review of laboratory results Abnormal [facility] Glucose [Mass/Vol] 138 mg/dL High 74-99 [facility] Comment on above: Performed By: #### 1 4804-9 #### QUIN Simon ([id number]) [facility] ([facility]) [address] [place] [address] 67396 Glucose [Mass/Vol] 101 mg/dL High 74 - 99 mg/dL [facility] Interpretation and review of laboratory results Abnormal [facility] Glucose [Mass/Vol] 101 mg/dL High 74-99 [facility] Comment on above: Performed By: #### 1 4804-9 #### QUIN Simon ([id number]) [facility] ([facility]) [address] [place] [address] 61444 Glucose [Mass/Vol] 124 mg/dL High 74 - 99 mg/dL [facility] Interpretation and review of laboratory results Abnormal [facility] Glucose [Mass/Vol] 124 mg/dL High 74-99 [facility] Comment on above: Performed By: #### 2 4323-8 #### QUIN Simon ([id number]) [facility] ([facility]) [address] [place] [address] 81470 Glucose [Mass/Vol] 157 mg/dL High 74 - 99 mg/dL [facility] Interpretation and review of laboratory results Abnormal [facility] Glucose [Mass/Vol] 157 mg/dL High 74-99 [facility] Comment on above: Performed By: #### 2 4323-8 #### QUIN Simon ([id number]) [facility] ([facility]) [address] [place] [address] 57478 No Panel Informationon 02-10 There is no [...] no significant focal stenosis or aneurysm. The [id number] intracranial MRV is within normal limits without evidence of venous sinus thrombosis. MACRO: None. Signed by: Ranjan Trivedi 02/10/2025 5:28 AM Dictation workstation: [id number] MMODAL Interpreted By: Ranjan Root, STUDY: MR BRAIN WO IV CONTRAST; MR ANGIO HEAD WO IV CONTRAST; MR VENOGRAPHY INTRACRANIAL WO IV CONTRAST; 02/10/2025 5:02 am INDICATION: Signs/Symptoms:intractabl e headache, sPEC; Signs/Symptoms:intractabl e NIELSEN, sPEC. COMPARISON: None. ACCESSION NUMBER(S): [id number]; [id number]; [id number] ORDERING CLINICIAN: CLAIR JORGENSEN TECHNIQUE: Axial diffusion, axial T2, axial FLAIR, axial gradient echo T2, coronal T1, and sagittal T1 weighted MRI images of the brain were obtained without intravenous contrast administration. In addition, qpvy-iv-lsfrwe MRA and MRV images of the intracranial [...] no significant focal stenosis or aneurysm. The cjiq-gh-vgxogm intracranial MRV is within normal limits without evidence of venous sinus thrombosis. MMODAL Ranjan Trivedi M D - 02/10/2025 Interpreted By: Ranjan Trivedi, STUDY: MR BRAIN WO IV CONTRAST; MR ANGIO HEAD WO IV CONTRAST; MR VENOGRAPHY INTRACRANIAL WO IV CONTRAST; 02/10/2025 5:02 am INDICATION: Signs/Symptoms:intractabl e headache, sPEC; Signs/Symptoms:intractabl e NIELSEN, sPEC. COMPARISON: None. ACCESSION NUMBER(S): [id number]; [id number]; [id number] ORDERING CLINICIAN: CLAIR JORGENSEN TECHNIQUE: Axial diffusion, axial T2, axial FLAIR, axial gradient echo T2, coronal T1, and sagittal T1 weighted MRI images of the brain were obtained without intravenous contrast administration. In addition, iixi-qx-lyuaku MRA and MRV images of the intracranial [...] no significant focal stenosis or aneurysm. The upgu-ij-kxauje intracranial MRV is within normal limits without [...] no significant focal stenosis or aneurysm. The gnxl-iu-tkbtqb intracranial MRV is within normal limits without evidence of venous sinus thrombosis. MACRO: None. Signed by: Ranjan Trivedi 02/10/2025 5:28 AM Dictation workstation: [id number] [facility] Work Phone: Radiology Study observation (narrative) [facility] Work Phone: No Panel InformationOrdered By: Ranjan Trivedi on 02-10-2025 [facility] Work Phone: CBC panel Auto (Bld)on 02-09 Erythrocyte distribution width (RBC) [Ratio] 13.4 % 11.5 - 14.5 % [facility] Hematocrit (Bld) [Volume fraction] 34.8 % Low 36.0 - 46.0 % [facility] Hemoglobin (Bld) [Mass/Vol] 10.6 g/dL Low 12.0 - 16.0 g/dL [facility] Interpretation and review of laboratory results Abnormal [facility] MCH (RBC) [Entitic mass] 28 pg 26.0 - 34.0 pg [facility] MCHC (RBC) [Mass/Vol] 30.5 g/dL Low 32.0 - 36.0 g/dL [facility] MCV (RBC) [Entitic vol] 92 fL 80 - 100 fL [facility] Nucleated RBC/100 WBC (Bld) [Ratio] 0 % [facility] Platelets (Bld) [#/Vol] 265 10*3/uL [facility] RBC (Bld) [#/Vol] 3.78 10*6/uL Low [facility] WBC (Bld) [#/Vol] 18.5 10*3/uL High [facility] Erythrocyte distribution width (RBC) [Ratio] 13.4 % Normal 11.5-14.5 [facility] Comment on above: Performed By: #### 2 4323-8 #### QUIN Simon ([id number]) [facility] ([facility]) [address] [place] [address] 73579 Hematocrit (Bld) [Volume fraction] 34.8 % Low 36.0-46.0 [facility] Comment on above: Performed By: #### 2 4323-8 #### QUIN Simon ([id number]) [facility] ([facility]) [address] [place] [address] 31440 Hemoglobin (Bld) [Mass/Vol] 10.6 g/dL Low 12.0-16.0 [facility] Comment on above: Performed By: #### 2 4323-8 #### QUIN Simon ([id number]) [facility] ([facility]) [address] [place] [address] 59514 MCH (RBC) [Entitic mass] 28.0 pg Normal 26.0-34.0 [facility] Comment on above: Performed By: #### 2 4323-8 #### QUIN Simon ([id number]) [facility] ([facility]) [address] [place] [address] 01858 MCHC (RBC) [Mass/Vol] 30.5 g/dL Low 32.0-36.0 [place] Comment on above: Performed By: #### 2 4323-8 #### QUIN Simon ([id number]) [facility] ([facility]) [address] [place] [address] 22763 MCV (RBC) [Entitic vol] 92 fL Normal 80-100 [facility] Comment on above: Performed By: #### 2 4323-8 #### QUIN Simon ([id number]) [facility] ([facility]) [address] [place] [address] 44814 Nucleated RBC/100 WBC (Bld) [Ratio] 0.0 /100 WBCs Normal 0.0-0.0 [facility] Comment on above: Performed By: #### 2 4323-8 #### QUIN Simon ([id number]) [facility] ([facility]) [address] [place] [address] 26709 Platelets (Bld) [#/Vol] 265 x10*3/uL Normal 150-450 [facility] Comment on above: Performed By: #### 2 4323-8 #### QUIN Simon ([id number]) [facility] ([facility]) [address] [place] [address] 57558 RBC (Bld) [#/Vol] 3.78 x10*6/uL Low 4.00-5.20 [facility] Comment on above: Performed By: #### 2 4323-8 #### QUIN Simon ([id number]) [facility] ([facility]) [address] [place] [address] WBC (Bld) [#/Vol] 18.5 x10*3/uL High 4.4-11.3 [facility] Comment on above: Performed By: #### 2 4323-8 #### QUIN Simon ([id number]) [facility] ([facility]) [address] [place] [address] Erythrocyte distribution width (RBC) [Ratio] 13.3 % 11.5 - 14.5 % [facility] Hematocrit (Bld) [Volume fraction] 35.4 % Low 36.0 - 46.0 % [facility] Hemoglobin (Bld) [Mass/Vol] 11.2 g/dL Low 12.0 - 16.0 g/dL [facility] Interpretation and review of laboratory results Abnormal [facility] MCH (RBC) [Entitic mass] 28.3 pg 26.0 - 34.0 pg [facility] MCHC (RBC) [Mass/Vol] 31.6 g/dL Low 32.0 - 36.0 g/dL [facility] MCV (RBC) [Entitic vol] 89 fL 80 - 100 fL [facility] Nucleated RBC/100 WBC (Bld) [Ratio] 0 % [facility] Platelets (Bld) [#/Vol] 266 10*3/uL [facility] RBC (Bld) [#/Vol] 3.96 10*6/uL Low [facility] WBC (Bld) [#/Vol] 19.1 10*3/uL High [facility] Erythrocyte distribution width (RBC) [Ratio] 13.3 % Normal 11.5-14.5 [facility] Comment on above: Performed By: #### 2 4323-8 #### QUIN Simon ([id number]) [facility] ([facility]) [address] [place] [address] Hematocrit (Bld) [Volume fraction] 35.4 % Low 36.0-46.0 [facility] Comment on above: Performed By: #### 2 4323-8 #### QUIN Simon ([id number]) [facility] ([facility]) [address] [place] [address] 13689 Hemoglobin (Bld) [Mass/Vol] 11.2 g/dL Low 12.0-16.0 [facility] Comment on above: Performed By: #### 2 4323-8 #### QUIN Simon ([id number]) [facility] ([facility]) [address] [place] [address] 61357 MCH (RBC) [Entitic mass] 28.3 pg Normal 26.0-34.0 [facility] Comment on above: Performed By: #### 2 4323-8 #### QUIN Simon ([id number]) [facility] ([facility]) [address] [place] [address] 44975 MCHC (RBC) [Mass/Vol] 31.6 g/dL Low 32.0-36.0 [place] Comment on above: Performed By: #### 2 4323-8 #### QUIN Simon ([id number]) [facility] ([facility]) [address] [place] [address] 62027 MCV (RBC) [Entitic vol] 89 fL Normal 80-100 [facility] Comment on above: Performed By: #### 2 4323-8 #### QUIN Simon ([id number]) [facility] ([facility]) [address] [place] [address] 45072 Nucleated RBC/100 WBC (Bld) [Ratio] 0.0 /100 WBCs Normal 0.0-0.0 [facility] Comment on above: Performed By: #### 2 4323-8 #### QUIN Simon ([id number]) [facility] ([facility]) [address] [place] [address] 54127 Platelets (Bld) [#/Vol] 266 x10*3/uL Normal 150-450 [facility] Comment on above: Performed By: #### 2 4323-8 #### QUIN Simon ([id number]) [facility] ([facility]) [address] [place] [address] RBC (Bld) [#/Vol] 3.96 x10*6/uL Low 4.00-5.20 [facility] Comment on above: Performed By: #### 2 4323-8 #### QUIN HARTMAN L ([id number]) [facility] ([facility]) [address] [place] [address] WBC (Bld) [#/Vol] 19.1 x10*3/uL High 4.4-11.3 [facility] Comment on above: Performed By: #### 2 4323-8 #### QUIN BRANDER L ([id number]) [facility] ([facility]) [address] [place] [address] Comprehensive metabolic 2000 panelon 02-09-2025 Albumin BCP dye [Mass/Vol] 3.1 g/dL Low 3.4 - 5.0 g/dL [facility] ALP [Catalytic activity/Vol] 80 U/L 33 - 110 U/L [facility] ALT With P-5'-P [Catalytic activity/Vol] 6 U/L Low 7 - 45 U/L [facility] Comment on above: Patients treated wit h Sulfasalazine may generate falsely decreased results for ALT. Anion gap [Moles/Vol] 16 mmol/L 10 - 2 0 mmol/L [facility] AST With P-5'-P [Catalytic activity/Vol] 18 U/L 9 - 39 U/L [facility] Comment on above: MILD HEMOLYSIS DETEC STEFF. The result may be falsely elevated due to hemolysis or other interferents. Clinical correlation is recommended. Repeat testing may be considered. Bilirubin [Mass/Vol] 0.6 mg/dL 0.0 - 1 .2 mg/dL [facility] Calcium [Mass/Vol] 8 mg/dL Low 8.6 - 10. 6 mg/dL [facility] Chloride [Moles/Vol] 106 mmol/L 98 - 10 7 mmol/L [facility] CO2 [Moles/Vol] 17 mmol/L Low 21 - 32 mmol/L [facility] Creatinine [Mass/Vol] 0.54 mg/dL 0.50 - 1.05 mg/dL [facility] eGFR - PINF [facility] Comment on above: Calculations of zoya mated GFR are performed using the 2020 CKD-EPI Study Refit equation without the race variable for the IDMS-Traceable creatinine methods. https://jasn.asnjournals.org/content/early/ASN.694012 6413 Glucose [Mass/Vol] 113 mg/dL High 74 - 99 mg/dL [facility] Interpretation and review of laboratory results Abnormal [facility] Potassium [Moles/Vol] 4.1 mmol/L 3.5 - 5.3 mmol/L [facility] Comment on above: MILD HEMOLYSIS DETEC STEFF. The result may be falsely elevated due to hemolysis or other interferents. Clinical correlation is recommended. Repeat testing may be considered. Protein [Mass/Vol] 6 g/dL Low 6.4 - 8.2 g/dL [facility] Sodium [Moles/Vol] 135 mmol/L Low 136 - 145 mmol/L [facility] Urea nitrogen [Mass/Vol] 9 mg/dL 6 - 23 mg/dL [facility] Albumin BCP dye [Mass/Vol] 3.1 g/dL Low 3.4-5.0 [facility] Comment on above: Performed By: #### 2 4323-8 #### QUIN Simon ([id number]) [facility] ([facility]) [address] [place] [address] ALP [Catalytic activity/Vol] 80 U/L Normal 33-110 [facility] Comment on above: Performed By: #### 2 4323-8 #### QUIN HARTMAN L ([id number]) [facility] ([facility]) [address] [place] [address] ALT With P-5'-P [Catalytic activity/Vol] 6 U/L Low 7-45 [facility] Comment on above: Result Comment: Nguyen ents treated with Sulfasalazine may generate falsely decreased results for ALT. Performed By: #### 2 4323-8 #### QUIN Simon ([id number]) [facility] ([facility]) [address] [place] [address] Anion gap [Moles/Vol] 16 mmol/L Normal 10-20 [place] Comment on above: Performed By: #### 2 4323-8 #### QUIN Simon ([id number]) [facility] ([facility]) [address] [place] [address] AST With P-5'-P [Catalytic activity/Vol] 18 U/L Normal 9-39 [facility] Comment on above: Result Comment: MILD HEMOLYSIS DETECTED. The result may be falsely elevated due to hemolysis or other interferents. Clinical correlation is recommended. Repeat testing may be considered. Performed By: #### 2 4323-8 #### QUIN Simon ([id number]) [facility] ([facility]) [address] [place] [address] Bilirubin [Mass/Vol] 0.6 mg/dL Normal 0.0-1.2 [facility] Comment on above: Performed By: #### 2 4323-8 #### QUIN Simon ([id number]) [facility] ([facility]) [address] [place] [address] Calcium [Mass/Vol] 8.0 mg/dL Low 8.6-10.6 [facility] Comment on above: Performed By: #### 2 4323-8 #### QUIN Simon ([id number]) [facility] ([facility]) [address] [place] [address] Chloride [Moles/Vol] 106 mmol/L Normal 98-107 [facility] Comment on above: Performed By: #### 2 4323-8 #### QUIN Simon ([id number]) [facility] ([facility]) [address] [place] [address] CO2 [Moles/Vol] 17 mmol/L Low 21-32 [facility] Comment on above: Performed By: #### 2 4323-8 #### QUIN Simon ([id number]) [facility] ([facility]) [address] [place] [address] Creatinine [Mass/Vol] 0.54 mg/dL Normal 0.50-1.05 [place] Comment on above: Performed By: #### 2 4323-8 #### QUIN Simon ([id number]) [facility] ([facility]) [address] [place] [address] GFR/1.73 sq M.predicted MDRD (S/P/Bld) [Vol rate/Area] mL/min/{1.73_m2} Normal >60 [facility] Comment on above: Result Comment: Calc ulations of estimated GFR are performed using the 2020 CKD-EPI Study Refit equation without the race variable for the IDMS-Traceable creatinine methods. https://jasn.asnjournals.org/content/early//ASN.605569 4921 Performed By: #### 2 4323-8 #### QUIN Simon ([id number]) [facility] ([facility]) [address] [place] [address] Glucose [Mass/Vol] 113 mg/dL High 74-99 [facility] Comment on above: Performed By: #### 2 4323-8 #### QUIN Simon ([id number]) [facility] ([facility]) [address] [place] [address] Potassium [Moles/Vol] 4.1 mmol/L Normal 3.5-5.3 [place] Comment on above: Result Comment: MILD HEMOLYSIS DETECTED. The result may be falsely elevated due to hemolysis or other interferents. Clinical correlation is recommended. Repeat testing may be considered. Performed By: #### 2 4323-8 #### QUIN Simon ([id number]) [facility] ([facility]) [address] [place] [address] Protein [Mass/Vol] 6.0 g/dL Low 6.4-8.2 [facility] Comment on above: Performed By: #### 2 4323-8 #### QUIN Simon ([id number]) [facility] ([facility]) [address] [place] [address] Sodium [Moles/Vol] 135 mmol/L Low 136-145 [facility] Comment on above: Performed By: #### 2 4323-8 #### QUIN HARTMAN L ([id number]) [facility] ([facility]) [address] [place] [address] Urea nitrogen [Mass/Vol] 9 mg/dL Normal 6-23 [facility] Comment on above: Performed By: #### 2 4323-8 #### QUIN BRANDER L ([id number]) [facility] ([facility]) [address] [place] [address] Albumin BCP dye [Mass/Vol] 3.3 g/dL Low 3.4 - 5.0 g/dL [facility] ALP [Catalytic activity/Vol] 87 U/L 33 - 110 U/L [facility] ALT With P-5'-P [Catalytic activity/Vol] 7 U/L 7 - 45 U/L [facility] Comment on above: Patients treated wit h Sulfasalazine may generate falsely decreased results for ALT. Anion gap [Moles/Vol] 13 mmol/L 10 - 2 0 mmol/L [facility] AST With P-5'-P [Catalytic activity/Vol] 10 U/L 9 - 39 U/L [facility] Bilirubin [Mass/Vol] 0.4 mg/dL 0.0 - 1 .2 mg/dL [facility] Calcium [Mass/Vol] 8.5 mg/dL Low 8.6 - 10. 6 mg/dL [facility] Chloride [Moles/Vol] 105 mmol/L 98 - 10 7 mmol/L [facility] CO2 [Moles/Vol] 22 mmol/L 21 - 32 mmol/L [facility] Creatinine [Mass/Vol] 0.52 mg/dL 0.50 - 1.05 mg/dL [facility] eGFR - PINF [facility] Comment on above: Calculations of zoya mated GFR are performed using the 2020 CKD-EPI Study Refit equation without the race variable for the IDMS-Traceable creatinine methods. https://jasn.asnjournals.org/content//ASN.017054 4678 Glucose [Mass/Vol] 136 mg/dL High 74 - 99 mg/dL [facility] Interpretation and review of laboratory results Abnormal [facility] Potassium [Moles/Vol] 3.9 mmol/L 3.5 - 5.3 mmol/L [facility] Protein [Mass/Vol] 6.2 g/dL Low 6.4 - 8.2 g/dL [facility] Sodium [Moles/Vol] 136 mmol/L 136 - 145 mmol/L [facility] Urea nitrogen [Mass/Vol] 8 mg/dL 6 - 23 mg/dL [facility] Albumin BCP dye [Mass/Vol] 3.3 g/dL Low 3.4-5.0 [facility] Comment on above: Performed By: #### 2 4323-8 #### QUIN Simon ([id number]) [facility] ([facility]) [id number] [place] [address] ALP [Catalytic activity/Vol] 87 U/L Normal 33-110 [facility] Comment on above: Performed By: #### 2 4323-8 #### QUIN Simon ([id number]) [facility] ([facility]) [address] [place] [address] ALT With P-5'-P [Catalytic activity/Vol] 7 U/L Normal 7-45 [facility] Comment on above: Result Comment: Nguyen ents treated with Sulfasalazine may generate falsely decreased results for ALT. Performed By: #### 2 4323-8 #### QUIN Simon ([id number]) [facility] ([facility]) [address] [place] [address] Anion gap [Moles/Vol] 13 mmol/L Normal 10-20 [place] Comment on above: Performed By: #### 2 4323-8 #### QUIN Simon ([id number]) [facility] ([facility]) [address] [place] [address] AST With P-5'-P [Catalytic activity/Vol] 10 U/L Normal 9-39 [facility] Comment on above: Performed By: #### 2 4323-8 #### QUIN Simon ([id number]) [facility] ([facility]) [address] [place] [address] Bilirubin [Mass/Vol] 0.4 mg/dL Normal 0.0-1.2 [facility] Comment on above: Performed By: #### 2 4323-8 #### QUIN Simon ([id number]) [facility] ([facility]) [address] [place] [address] Calcium [Mass/Vol] 8.5 mg/dL Low 8.6-10.6 [facility] Comment on above: Performed By: #### 2 4323-8 #### QUIN Simon ([id number]) [facility] ([facility]) [address] [place] [address] Chloride [Moles/Vol] 105 mmol/L Normal 98-107 [facility] Comment on above: Performed By: #### 2 4323-8 #### QUIN Simon ([id number]) [facility] ([facility]) [address] [place] [address] CO2 [Moles/Vol] 22 mmol/L Normal 21-32 [facility] Comment on above: Performed By: #### 2 4323-8 #### QUIN Simon ([id number]) [facility] ([facility]) [address] [place] [address] Creatinine [Mass/Vol] 0.52 mg/dL Normal 0.50-1.05 [place] Comment on above: Performed By: #### 2 4323-8 #### QUIN Simon ([id number]) [facility] ([facility]) [address] [place] [address] GFR/1.73 sq M.predicted MDRD (S/P/Bld) [Vol rate/Area] mL/min/{1.73_m2} Normal >60 [facility] Comment on above: Result Comment: Calc ulations of estimated GFR are performed using the 2020 CKD-EPI Study Refit equation without the race variable for the IDMS-Traceable creatinine methods. https://jasn.asnjournals.org/content/early//ASN.163598 1960 Performed By: #### 2 4323-8 #### QUIN HARTMAN L ([id number]) [facility] ([facility]) [address] [place] [address] Glucose [Mass/Vol] 136 mg/dL High 74-99 [facility] Comment on above: Performed By: #### 2 4323-8 #### QUIN HARTMAN L ([id number]) [facility] ([facility]) [address] [place] [address] Potassium [Moles/Vol] 3.9 mmol/L Normal 3.5-5.3 [place] Comment on above: Performed By: #### 2 4323-8 #### QUIN LEVYTZBUBBA L ([id number]) [facility] ([facility]) [address] [place] [address] Protein [Mass/Vol] 6.2 g/dL Low 6.4-8.2 [facility] Comment on above: Performed By: #### 2 4323-8 #### QUIN BERGMANMOTZER L ([id number]) [facility] ([facility]) [address] [place] [address] Sodium [Moles/Vol] 136 mmol/L Normal 136-145 [facility] Comment on above: Performed By: #### 2 4323-8 #### QUIN BERGMANMOTZER L ([id number]) [facility] ([facility]) [address] [place] [address] Urea nitrogen [Mass/Vol] 8 mg/dL Normal 6-23 [facility] Comment on above: Performed By: #### 2 4323-8 #### QUIN BERGMANMOTZER L ([id number]) [facility] ([facility]) [address] [place] [address] HIV 1+2 Ab+HIV1 p24 Agon HIV 1+2 Ab+HIV1 p24 Ag IA Ql Non-Reactive Normal Nonreactive [facility] Comment on above: Order Comment: The b eta-hydroxybutyrate test performance characteristics have been validated by [facility]. This test has not been approved by the FDA; however such approval is not necessary. Performed By: #### 3 5255-9 #### QUIN Simon ([id number]) [facility] ([facility]) [address] [place] [address] MR ANGIO HEAD WO IV CONTRAST on 02-09-2025 MR ANGIO HEAD WO IV CONTRAST Interpreted By: Ranjan Trivedi, STUDY: MR BRAIN WO IV CONTRAST; MR ANGIO HEAD WO IV CONTRAST; MR VENOGRAPHY INTRACRANIAL WO IV CONTRAST; 02/10/2025 5:02 am INDICATION: Signs/Symptoms:intractabl e headache, sPEC; Signs/Symptoms:intractabl e NIELSEN, sPEC. COMPARISON: None. ACCESSION NUMBER(S): [id number]; [id number]; [id number] ORDERING CLINICIAN: CLAIR JORGENSEN TECHNIQUE: Axial diffusion, axial T2, axial FLAIR, axial gradient echo T2, coronal T1, and sagittal T1 weighted MRI images of the brain were obtained without intravenous contrast administration. In addition, lixv-vn-rjacjy MRA and MRV images of the intracranial [...] no significant focal stenosis or aneurysm. The tjey-vv-uldygz intracranial MRV is within normal limits without [...] no significant focal stenosis or aneurysm. The sfzr-nj-cxntnd intracranial MRV is within normal limits without evidence of venous sinus thrombosis. MACRO: None. Signed by: Ranjan Trivedi 02/10/2025 5:28 AM Dictation workstation: [id number] [facility] MR BRAIN WO IV CONTRASTon MR BRAIN WO IV CONTRAST Interpreted By: Ranjan Trivedi, STUDY: MR BRAIN WO IV CONTRAST; MR ANGIO HEAD WO IV CONTRAST; MR VENOGRAPHY INTRACRANIAL WO IV CONTRAST; 02/10/2025 5:02 am INDICATION: Signs/Symptoms:intractabl e headache, sPEC; Signs/Symptoms:intractabl e NIELSEN, sPEC. COMPARISON: None. ACCESSION NUMBER(S): [id number]; [id number]; [id number] ORDERING CLINICIAN: CLAIR JORGENSEN TECHNIQUE: Axial diffusion, axial T2, axial FLAIR, axial gradient echo T2, coronal T1, and sagittal T1 weighted MRI images of the brain were obtained without intravenous contrast administration. In addition, xpyi-hg-zximbq MRA and MRV images of the intracranial [...] no significant focal stenosis or aneurysm. The snjx-oy-skoczk intracranial MRV is within normal limits without [...] no significant focal stenosis or aneurysm. The dgfl-cd-tuffuk intracranial MRV is within normal limits without evidence of venous sinus thrombosis. MACRO: None. Signed by: Ranjan Trivedi 02/10/2025 5:28 AM Dictation workstation: [id number] [facility] MR VENOGRAPHY INTRACRANIAL W O IV CONTRASTon 02-09-2025 MR VENOGRAPHY INTRACRANIAL WO IV CONTRAST Interpreted By: Ranjan Trivedi, STUDY: MR BRAIN WO IV CONTRAST; MR ANGIO HEAD WO IV CONTRAST; MR VENOGRAPHY INTRACRANIAL WO IV CONTRAST; 02/10/2025 5:02 am INDICATION: Signs/Symptoms:intractabl e headache, sPEC; Signs/Symptoms:intractabl e NIELSEN, sPEC. COMPARISON: None. ACCESSION NUMBER(S): [id number]; [id number]; [id number] ORDERING CLINICIAN: CLAIR JORGENSEN TECHNIQUE: Axial diffusion, axial T2, axial FLAIR, axial gradient echo T2, coronal T1, and sagittal T1 weighted MRI images of the brain were obtained without intravenous contrast administration. In addition, dfnq-sj-aitwmf MRA and MRV images of the intracranial [...] no significant focal stenosis or aneurysm. The kyes-le-wuewwq intracranial MRV is within normal limits without [...] no significant focal stenosis or aneurysm. The asxn-xd-rcqwkv intracranial MRV is within normal limits without evidence of venous sinus thrombosis. MACRO: None. Signed by: Ranjan Trivedi 02/10/2025 5:28 AM Dictation workstation: [id number] Normal [facility] Rubella virus IgG IA Qnon Rubella virus IgG IA Ql Positive Normal Negative [facility] Comment on above: Order Comment: The b eta-hydroxybutyrate test performance characteristics have been validated by [facility]. This test has not been approved by the FDA; however such approval is not necessary. Performed By: #### 3 5255-9 #### QUIN Simon ([id number]) [facility] ([facility]) [address] [place] [address] Rubella virus IgG Qn (S) 1.5 IA Normal <=0.7 IA [facility] Comment on above: Order Comment: The b eta-hydroxybutyrate test performance characteristics have been validated by [facility]. This test has not been approved by the FDA; however such approval is not necessary. Performed By: #### 3 5255-9 #### QUIN Simon ([id number]) [facility] ([facility]) [address] [place] [address] Syphilis Screen with ReflexO rdered By: Alexandre Kenny on 02-09-2025 T. pallidum IgG+IgM IA Ql (S) Non-Reactive Nonreactive [facility] Comment on above: No significant level of Treponema pallidum antibody detected. Repeat testing in 2 to 4 weeks may be considered if early infection or incubating syphilis infection is suspected. T. pallidum IgG+IgM IA Ql (S )Ordered By: Alexandre Kenny on 02-09-2025 Interpretation and review of laboratory results Normal [facility] Beta hydroxybutyrate [Mass o r moles/Vol]on 02-08-2025 Beta hydroxybutyrate [Moles/Vol] 0.15 mmol/L 0.02 - 0.27 mmol/L [facility] The beta-hydroxybuty rate test performance characteristics have been validated by [facility]. This test has not been approved by the FDA; however such approval is not necessary. [facility] Beta hydroxybutyrate [Moles/Vol] 0.15 mmol/L Normal 0.02-0.27 [facility] Comment on above: Order Comment: The b eta-hydroxybutyrate test performance characteristics have been validated by [facility]. This test has not been approved by the FDA; however such approval is not necessary. Performed By: #### 3 084-1 #### QUIN Simon ([id number]) [facility] ([facility]) [address] [place] [address] Blood type and Indirect anti body screen panel (Bld)on 02-08-2025 ABO group Nom (Bld) O [facility] Blood group antibody screen Ql Negative [facility] D Ag Ql (Bld) Positive [facility] ABO group Nom (Bld) O Normal [facility] Comment on above: Performed By: #### 3 084-1 #### QUIN Simon ([id number]) [facility] ([facility]) [address] [place] [address] Blood group antibody screen Ql Negative Normal [facility] Comment on above: Performed By: #### 3 084-1 #### QUIN Simon ([id number]) [facility] ([facility]) [address] [place] [address] D Ag Ql (Bld) Positive Normal [facility] Comment on above: Performed By: #### 3 084-1 #### QUIN Simon ([id number]) [facility] ([facility]) [address] [place] [address] CBC panel Auto (Bld)on 02-08 Erythrocyte distribution width (RBC) [Ratio] 13.2 % 11.5 - 14.5 % [facility] Hematocrit (Bld) [Volume fraction] 36.6 % 36.0 - 46.0 % [facility] Hemoglobin (Bld) [Mass/Vol] 11.9 g/dL Low 12.0 - 16.0 g/dL [facility] Interpretation and review of laboratory results Abnormal [facility] MCH (RBC) [Entitic mass] 28.1 pg 26.0 - 34.0 pg [facility] MCHC (RBC) [Mass/Vol] 32.5 g/dL 32.0 - 36.0 g/dL [facility] MCV (RBC) [Entitic vol] 87 fL 80 - 100 fL [facility] Nucleated RBC/100 WBC (Bld) [Ratio] 0 % [facility] Platelets (Bld) [#/Vol] 297 10*3/uL [facility] RBC (Bld) [#/Vol] 4.23 10*6/uL [facility] WBC (Bld) [#/Vol] 15.8 10*3/uL [facility] Erythrocyte distribution width (RBC) [Ratio] 13.2 % Normal 11.5-14.5 [facility] Comment on above: Performed By: #### 3 084-1 #### QUIN Simon ([id number]) [facility] ([facility]) [address] [place] [address] Hematocrit (Bld) [Volume fraction] 36.6 % Normal 36.0-46.0 [facility] Comment on above: Performed By: #### 3 084-1 #### QUIN Simon ([id number]) [facility] ([facility]) [address] [place] [address] Hemoglobin (Bld) [Mass/Vol] 11.9 g/dL Low 12.0-16.0 [facility] Comment on above: Performed By: #### 3 084-1 #### QUIN Simon ([id number]) [facility] ([facility]) [address] [place] [address] MCH (RBC) [Entitic mass] 28.1 pg Normal 26.0-34.0 [facility] Comment on above: Performed By: #### 3 084-1 #### QUIN Simon ([id number]) [facility] ([facility]) [address] [place] [address] MCHC (RBC) [Mass/Vol] 32.5 g/dL Normal 32.0-36.0 [place] Comment on above: Performed By: #### 3 084-1 #### QUIN Simon ([id number]) [facility] ([facility]) [address] [place] [address] MCV (RBC) [Entitic vol] 87 fL Normal 80-100 [facility] Comment on above: Performed By: #### 3 084-1 #### QUIN Simon ([id number]) [facility] ([facility]) [address] [place] [address] Nucleated RBC/100 WBC (Bld) [Ratio] 0.0 /100 WBCs Normal 0.0-0.0 [facility] Comment on above: Performed By: #### 3 084-1 #### QUIN Simon ([id number]) [facility] ([facility]) [address] [place] [address] Platelets (Bld) [#/Vol] 297 x10*3/uL Normal 150-450 [facility] Comment on above: Performed By: #### 3 084-1 #### QUIN Simon ([id number]) [facility] ([facility]) [address] [place] [address] RBC (Bld) [#/Vol] 4.23 x10*6/uL Normal 4.00-5.20 [facility] Comment on above: Performed By: #### 3 084-1 #### QUIN Simon ([id number]) [facility] ([facility]) [address] [place] [address]38[address] WBC (Bld) [#/Vol] 15.8 x10*3/uL High 4.4-11.3 [facility] Comment on above: Performed By: #### 3 084-1 #### QUIN Simon ([id number]) [facility] ([facility]) [address] [place] [id number] Comprehensive metabolic 2000 panelon 02-08-2025 Albumin BCP dye [Mass/Vol] 3.5 g/dL 3.4 - 5.0 g/dL [facility] ALP [Catalytic activity/Vol] 89 U/L 33 - 110 U/L [facility] ALT With P-5'-P [Catalytic activity/Vol] 7 U/L 7 - 45 U/L [facility] Comment on above: Patients treated wit h Sulfasalazine may generate falsely decreased results for ALT. Anion gap [Moles/Vol] 13 mmol/L 10 - 2 0 mmol/L [facility] AST With P-5'-P [Catalytic activity/Vol] 9 U/L 9 - 39 U/L [facility] Bilirubin [Mass/Vol] 0.5 mg/dL 0.0 - 1 .2 mg/dL [facility] Calcium [Mass/Vol] 9.4 mg/dL 8.6 - 10. 6 mg/dL [facility] Chloride [Moles/Vol] 106 mmol/L 98 - 10 7 mmol/L [facility] CO2 [Moles/Vol] 21 mmol/L 21 - 32 mmol/L [facility] Creatinine [Mass/Vol] 0.51 mg/dL 0.50 - 1.05 mg/dL [facility] eGFR - PINF [facility] Comment on above: Calculations of zoya mated GFR are performed using the 2020 CKD-EPI Study Refit equation without the race variable for the IDMS-Traceable creatinine methods. https://jasn.asnjournals.org/content//ASN.063699 5987 Glucose [Mass/Vol] 104 mg/dL High 74 - 99 mg/dL [facility] Interpretation and review of laboratory results Abnormal [facility] Potassium [Moles/Vol] 4.1 mmol/L 3.5 - 5.3 mmol/L [facility] Protein [Mass/Vol] 6.5 g/dL 6.4 - 8.2 g/dL [facility] Sodium [Moles/Vol] 136 mmol/L 136 - 145 mmol/L [facility] Urea nitrogen [Mass/Vol] 9 mg/dL 6 - 23 mg/dL [facility] Albumin BCP dye [Mass/Vol] 3.5 g/dL Normal 3.4-5.0 [facility] Comment on above: Performed By: #### 3 084-1 #### QUIN Simon ([id number]) [facility] ([facility]) [address] [place] [address] ALP [Catalytic activity/Vol] 89 U/L Normal 33-110 [facility] Comment on above: Performed By: #### 3 084-1 #### QUIN Simon ([id number]) [facility] ([facility]) [address] [place] [address] ALT With P-5'-P [Catalytic activity/Vol] 7 U/L Normal 7-45 [facility] Comment on above: Result Comment: Nguyen ents treated with Sulfasalazine may generate falsely decreased results for ALT. Performed By: #### 3 084-1 #### QUIN Simon ([id number]) [facility] ([facility]) [id number] [place] [address] Anion gap [Moles/Vol] 13 mmol/L Normal 10-20 [place] Comment on above: Performed By: #### 3 084-1 #### QUIN Simon ([id number]) [facility] ([facility]) [address] [place] [address] AST With P-5'-P [Catalytic activity/Vol] 9 U/L Normal 9-39 [facility] Comment on above: Performed By: #### 3 084-1 #### QUIN Simon ([id number]) [facility] ([facility]) [address] [place] [address] Bilirubin [Mass/Vol] 0.5 mg/dL Normal 0.0-1.2 [facility] Comment on above: Performed By: #### 3 084-1 #### QUIN Simon ([id number]) [facility] ([facility]) [address] [place] [address] Calcium [Mass/Vol] 9.4 mg/dL Normal 8.6-10.6 [facility] Comment on above: Performed By: #### 3 084-1 #### QUIN Simon ([id number]) [facility] ([facility]) [address] [place] [address] Chloride [Moles/Vol] 106 mmol/L Normal 98-107 [facility] Comment on above: Performed By: #### 3 084-1 #### QUIN Simon ([id number]) [facility] ([facility]) [address] [place] [address] CO2 [Moles/Vol] 21 mmol/L Normal 21-32 [facility] Comment on above: Performed By: #### 3 084-1 #### QUIN Simon ([id number]) [facility] ([facility]) [address] [place] [address] Creatinine [Mass/Vol] 0.51 mg/dL Normal 0.50-1.05 [place] Comment on above: Performed By: #### 3 084-1 #### QUIN Simon ([id number]) [facility] ([facility]) [address] [place] [address] GFR/1.73 sq M.predicted MDRD (S/P/Bld) [Vol rate/Area] mL/min/{1.73_m2} Normal >60 [facility] Comment on above: Result Comment: Calc ulations of estimated GFR are performed using the 2020 CKD-EPI Study Refit equation without the race variable for the IDMS-Traceable creatinine methods. https://jasn.asnjournals.org/content/early//ASN.528055 6136 Performed By: #### 3 084-1 #### QUIN Simon ([id number]) [facility] ([facility]) [address] [place] [address] Glucose [Mass/Vol] 104 mg/dL High 74-99 [facility] Comment on above: Performed By: #### 3 084-1 #### QUIN Simon ([id number]) [facility] ([facility]) [address] [place] [address] Potassium [Moles/Vol] 4.1 mmol/L Normal 3.5-5.3 [place] Comment on above: Performed By: #### 3 084-1 #### QUIN Simon ([id number]) [facility] ([facility]) [address] [place] [address] Protein [Mass/Vol] 6.5 g/dL Normal 6.4-8.2 [facility] Comment on above: Performed By: #### 3 084-1 #### QUIN Simon ([id number]) [facility] ([facility]) [address] [place] [address] Sodium [Moles/Vol] 136 mmol/L Normal 136-145 [facility] Comment on above: Performed By: #### 3 084-1 #### QUIN Simon ([id number]) [facility] ([facility]) [address] [place] [address] Urea nitrogen [Mass/Vol] 9 mg/dL Normal 6-23 [facility] Comment on above: Performed By: #### 3 084-1 #### QUIN Simon ([id number]) [facility] ([facility]) [address] [place] [address] Gas panel (BldV)on 5 Anion gap 4 (BldV) [Moles/Vol] 11 mmol/L 10.0 - 25.0 mmol/L [facility] Base excess Calc (BldV) [Moles/Vol] -3.2000 mmol/L Low -2.0 - 3.0 mmol/L [facility] Calcium.ionized (BldV) [Moles/Vol] 1.24 mmol/L 1.10 - 1.33 mmol/L [facility] Chloride (BldV) [Moles/Vol] 106 mmol/L 98 - 107 mmol/L [facility] CO2 (BldV) [Partial pressure] 30 mm[Hg] Low [facility] Glucose [Mass/Vol] 110 mg/dL High 74 - 99 mg/dL [facility] HCO3 (Bld) [Moles/Vol] 19.9 mmol/L Low 22.0 - 26.0 mmol/L [facility] Hematocrit Est (Bld) [Volume fraction] 44 % 36.0 - 46.0 % [facility] Hemoglobin (Bld) [Mass/Vol] 14.8 g/dL 12.0 - 16.0 g/dL [facility] Inhaled oxygen concentration 21 % [facility] Interpretation and review of laboratory results Abnormal [facility] Lactate (BldV) [Moles/Vol] 1 mmol/L 0.4 - 2.0 mmol/L [facility] Oxygen (BldV) [Partial pressure] 71 mm[Hg] High [facility] Oxygen saturation in Venous blood 96 % High 45 - 75 % [facility] Oxyhemoglobin (BldV) [Mass fraction] 93.3 % High 45.0 - 75.0 % [facility] pH (BldV) 7.43 [pH] 7.33 - 7.43 pH [facility] Potassium (BldV) [Moles/Vol] 3.8 mmol/L 3.5 - 5.3 mmol/L [facility] Sodium (BldV) [Moles/Vol] 133 mmol/L Low 136 - 145 mmol/L [facility] Anion gap 4 (BldV) [Moles/Vol] 11.0 mmol/L Normal 10.0-25.0 [facility] Comment on above: Performed By: #### 4 548-4 #### QUIN Simon ([id number]) [facility] ([facility]) [address] [place] [address] Base excess Calc (BldV) [Moles/Vol] -3.2000 mmol/L Low -2.0-3.0 [facility] Comment on above: Performed By: #### 4 548-4 #### QUIN Simon ([id number]) [facility] ([facility]) [address] [place] [address] Calcium.ionized (BldV) [Moles/Vol] 1.24 mmol/L Normal 1.10-1.33 [facility] Comment on above: Performed By: #### 4 548-4 #### QUIN Simon ([id number]) [facility] ([facility]) [address] [place] [address] Chloride (BldV) [Moles/Vol] 106 mmol/L Normal 98-107 [facility] Comment on above: Performed By: #### 4 548-4 #### QUIN Simon ([id number]) [facility] ([facility]) [address] [place] [address] CO2 (BldV) [Partial pressure] 30 mm Hg Low 41-51 [facility] Comment on above: Performed By: #### 4 548-4 #### QUIN Simon ([id number]) [facility] ([facility]) [address] [place] [address] Glucose [Mass/Vol] 110 mg/dL High 74-99 [facility] Comment on above: Performed By: #### 4 548-4 #### QUIN Simon ([id number]) [facility] ([facility]) [address] [place] [address]9836 HCO3 (Bld) [Moles/Vol] 19.9 mmol/L Low 22.0-26.0 [facility] Comment on above: Performed By: #### 4 548-4 #### QUIN Simon ([id number]) [facility] ([facility]) [address] [place] [address] Hematocrit Est (Bld) [Volume fraction] 44.0 % Normal 36.0-46.0 [facility] Comment on above: Performed By: #### 4 548-4 #### QUIN Simon ([id number]) [facility] ([facility]) [address] [place] [address] Hemoglobin (Bld) [Mass/Vol] 14.8 g/dL Normal 12.0-16.0 [facility] Comment on above: Performed By: #### 4 548-4 #### QUIN Simon ([id number]) [facility] ([facility]) [address] [place] [address]8410 Inhaled oxygen concentration 21 % Normal [facility] Comment on above: Performed By: #### 4 548-4 #### QUIN Simon ([id number]) [facility] ([facility]) [address] [place] [address] 98474 Lactate (BldV) [Moles/Vol] 1.0 mmol/L Normal 0.4-2.0 [facility] Comment on above: Performed By: #### 4 548-4 #### QUIN Simon ([id number]) [facility] ([facility]) [address] [place] [address]7570 Oxygen (BldV) [Partial pressure] 71 mm Hg High 35-45 [facility] Comment on above: Performed By: #### 4 548-4 #### QUIN Simon ([id number]) [facility] ([facility]) [address] [place] [address] 18396 Oxygen saturation in Venous blood 96 % High 45-75 [facility] Comment on above: Performed By: #### 4 548-4 #### QUIN Simon ([id number]) [facility] ([facility]) [address] [place] [address]6930 Oxyhemoglobin (BldV) [Mass fraction] 93.3 % High 45.0-75.0 [facility] Comment on above: Performed By: #### 4 548-4 #### QUIN Simon ([id number]) [facility] ([facility]) [address] [place] [address]190 pH (BldV) 7.43 [pH] Normal 7.33-7.43 [facility] Comment on above: Performed By: #### 4 548-4 #### QUIN Simon ([id number]) [facility] ([facility]) [address] [place] [address] Potassium (BldV) [Moles/Vol] 3.8 mmol/L Normal 3.5-5.3 [facility] Comment on above: Performed By: #### 4 548-4 #### QUIN Simon ([id number]) [facility] ([facility]) [address] [place] [address]134 Sodium (BldV) [Moles/Vol] 133 mmol/L Low 136-145 [facility] Comment on above: Performed By: #### 4 548-4 #### QUIN Simon ([id number]) [facility] ([facility]) [address] [place] [address] 86090 Glucose Test strip manual (B ld) [Mass/Vol]on 02-08-2025 Glucose [Mass/Vol] 117 mg/dL High 74 - 99 mg/dL [facility] Interpretation and review of laboratory results Abnormal [facility] Glucose [Mass/Vol] 117 mg/dL High 74-99 [facility] Comment on above: Performed By: #### 3 084-1 #### QUIN Simon ([id number]) [facility] ([facility]) [address] [place] [address] 63594 Glucose [Mass/Vol] 140 mg/dL High 74 - 99 mg/dL [facility] Interpretation and review of laboratory results Abnormal [facility] Glucose [Mass/Vol] 140 mg/dL High 74-99 [facility] Comment on above: Performed By: #### 4 548-4 #### QUIN Simon ([id number]) [facility] ([facility]) [address] [place] [address] 77861 Hepatitis B virus surface Ag on 02-08-2025 HBV surface Ag IA Ql Non-Reactive Normal Nonreactive U [facility] Comment on above: Result Comment: Biot in interference may cause falsely decreased results. Patients taking a Biotin dose of up to 5 mg/day should refrain from taking Biotin for 24 hours before sample collection. Providers may contact their local laboratory for further information. Performed By: #### 3 5255-9 #### QUIN Simon ([id number]) [facility] ([facility]) [address] [place] [address] Influenza virus A and B and SARS-CoV-2 (COVID-19) identified JYOTI+probe Nom (Resp)on 02-08-2025 FLUAV RNA JYOTI+probe Ql (Resp) Not detected Not Detected [facility] FLUBV RNA JYOTI+probe Ql (Resp) Not detected Not Detected [facility] Interpretation and review of laboratory results Normal [facility] SARS-CoV-2 (COVID-19) RNA JYOTI+probe Ql (Resp) Not detected Not Detected [facility] This assay is an FDA-cleared, in vitro diagnostic nucleic acid amplification test for the qualitative detection and differentiation of SARS CoV-2/ Influenza A/B from nasopharyngeal specimens collected from individuals with signs and symptoms of respiratory tract infections, and has been validated for use at [facility]. Negative results do not preclude COVID-19/ Influenza A/B infections and should not be used as the sole basis for diagnosis, treatment, or other management decisions. Testing for SARS CoV-2 is recommended only for patients who meet current clinical and/or epidemiological criteria defined by federal, state, or local public health directives. [facility] FLUAV RNA JYOTI+probe Ql (Resp) Not detected Normal Not Detected [facility] Comment on above: Order Comment: This assay is an FDA-cleared, in vitro diagnostic nucleic acid amplification test for the qualitative detection and differentiation of SARS CoV-2/ Influenza A/B from nasopharyngeal specimens collected from individuals with signs and symptoms of respiratory tract infections, and has been validated for use at [facility]. Negative results do not preclude COVID-19/ Influenza A/B infections and should not be used as the sole basis for diagnosis, treatment, or other management decisions. Testing for SARS CoV-2 is recommended only for patients who meet current clinical and/or epidemiological criteria defined by federal, state, or local public health directives. Performed By: #### 3 084-1 #### QUIN Simon ([id number]) [facility] ([facility]) [address] [place] [address] FLUBV RNA JYOTI+probe Ql (Resp) Not detected Normal Not Detected [facility] Comment on above: Order Comment: This assay is an FDA-cleared, in vitro diagnostic nucleic acid amplification test for the qualitative detection and differentiation of SARS CoV-2/ Influenza A/B from nasopharyngeal specimens collected from individuals with signs and symptoms of respiratory tract infections, and has been validated for use at [facility]. Negative results do not preclude COVID-19/ Influenza A/B infections and should not be used as the sole basis for diagnosis, treatment, or other management decisions. Testing for SARS CoV-2 is recommended only for patients who meet current clinical and/or epidemiological criteria defined by federal, state, or local public health directives. Performed By: #### 3 084-1 #### QUIN Simon ([id number]) [facility] ([facility]) [address] [place] [address] 29421 SARS-CoV-2 (COVID-19) RNA JYOTI+probe Ql (Resp) Not detected Normal Not Detected [facility] Comment on above: Order Comment: This assay is an FDA-cleared, in vitro diagnostic nucleic acid amplification test for the qualitative detection and differentiation of SARS CoV-2/ Influenza A/B from nasopharyngeal specimens collected from individuals with signs and symptoms of respiratory tract infections, and has been validated for use at [facility]. Negative results do not preclude COVID-19/ Influenza A/B infections and should not be used as the sole basis for diagnosis, treatment, or other management decisions. Testing for SARS CoV-2 is recommended only for patients who meet current clinical and/or epidemiological criteria defined by federal, state, or local public health directives. Performed By: #### 3 084-1 #### QUIN Simon ([id number]) [facility] ([facility]) [address] [place] [address] 79574 Lactate Dehydrogenaseon 04-0 LDH Lactate to pyruvate reaction [Catalytic activity/Vol] 185 U/L 84 - 246 U/L [facility] Lactate dehydrogenaseon 04-0 LDH Lactate to pyruvate reaction [Catalytic activity/Vol] 185 U/L Normal 84-246 [facility] Comment on above: Performed By: #### 3 084-1 #### QUIN Simon ([id number]) [facility] ([facility]) [address] [place] [address] 47008 Lipaseon Lipase [Catalytic activity/Vol] 13 U/L 9 - 82 U/L [facility] Lipase [Catalytic activity/V ol]on 02-08-2025 Interpretation and review of laboratory results Normal [facility] Venipuncture immedia tely after or during the administration of Metamizole may lead to falsely low results. Testing should be performed immediately prior to Metamizole dosing. [facility] No Panel Informationon 02-08 Interpretation and review of laboratory results Normal [facility] Proteinon 02-08-2025 Protein Qn (U) 33 mg/dL High 5-24 [facility] Comment on above: Performed By: #### 3 084-1 #### QUIN Simon ([id number]) [facility] ([facility]) [address] [place] [address] 36535 Protein Qn (U)on 02-08-2025 Creatinine (U) [Mass/Vol] 190.1 mg/dL 20.0 - 320.0 mg/dL [facility] Interpretation and review of laboratory results Abnormal [facility] Protein/Creatinine (U) [Mass ratio] 0.17 mg/g [facility] Creatinine (U) [Mass/Vol] 190.1 mg/dL Normal 20.0-320.0 [facility] Comment on above: Performed By: #### 3 084-1 #### QUIN Simon ([id number]) [facility] ([facility]) [address] [place] [address] 35453 Protein/Creatinine (U) [Mass ratio] 0.17 mg/mg Creat Normal 0.00-0.17 [facility] Comment on above: Performed By: #### 3 084-1 #### QUIN Simon ([id number]) [facility] ([facility]) [address] [place] [address] 93701 Protein, Urine Randomon 04- Protein Qn (U) 33 mg/dL High 5 - 24 mg/dL [facility] Streptococcus.beta-hemolytic on 02-08-2025 Streptococcus.beta-he molytic Org specific cx Ql (Genital specimen) Test: Group B Streptococcus (GBS) Screen, Culture Specimen Source: Vaginal/Rectal Specimen Type: Swab Specimen Date: 02/08/20252351 Result Date: 02/24/202549 Result Status: Edited Result - FINAL Abnormal: Yes Resulting Lab: [facility] [address] [place] [address] CULTURE Isolated: Streptococcus agalactiae (Group B Streptococcus) (Abnormal) Streptococcus agalactiae (Group B Streptococcus) is universally susceptible to beta-lactam antibiotics and vancomycin. Routine susceptibility testing not performed. For penicillin allergic patients, please contact the laboratory within 5 days of collection at to request susceptibility testing. Abnormal [facility] Comment on above: Performed By: #### 1 4804-9 #### QUIN Simon ([id number]) [facility] ([facility]) [address] [place] [address] Treponema pallidum Ab.IgG+Ig Mon 02-08-2025 T. pallidum IgG+IgM IA Ql (S) Non-Reactive Normal Nonreactive [facility] Comment on above: Result Comment: No s ignificant level of Treponema pallidum antibody detected. Repeat testing in 2 to 4 weeks may be considered if early infection or incubating syphilis infection is suspected. Performed By: #### 2 4323-8 #### QUIN Simon ([id number]) [facility] ([facility]) [address] [place], [place] [address] Triacylglycerol lipaseon Lipase [Catalytic activity/Vol] 13 U/L Normal 9-82 [facility] Comment on above: Order Comment: Venip uncture immediately after or during the administration of Metamizole may lead to falsely low results. Testing should be performed immediately prior to Metamizole dosing. Performed By: #### 3 084-1 #### QUIN Simon ([id number]) [facility] ([facility]) [address] [place], [place] [address] Urateon 02-08-2025 Urate [Mass/Vol] 3.8 mg/dL Normal 2.3-6.7 [facility] Comment on above: Result Comment: Jessica puncture immediately after or during the administration of Metamizole may lead to falsely low results. Testing should be performed immediately prior to Metamizole dosing. Performed By: #### 3 084-1 #### QUIN Simon ([id number]) [facility] ([facility]) [address] [place], [place] [address] Urate [Mass/Vol]on Interpretation and review of laboratory results Normal [facility] Uric Acidon 02-08-2025 Urate [Mass/Vol] 3.8 mg/dL 2.3 - 6.7 mg/dL [facility] Comment on above: Venipuncture immedia tely after or during the administration of Metamizole may lead to falsely low results. Testing should be performed immediately prior to Metamizole dosing. Glucose Test strip manual (B ld) [Mass/Vol]on 02-05-2025 Glucose [Mass/Vol] 175 mg/dL High 74-99 [facility] Comment on above: Performed By: #### 4 548-4 #### QUIN Simon ([id number]) [facility] ([facility]) [address] [place], [place] [address] US OB FOLLOW UP TRANSABDOMIN AL APPROACHon 02-05-2025 US OB FOLLOW UP TRANSABDOMINAL APPROACH Interpreted [...] normal amount -No malformations by limited survey -[facility] 06/12 Thank you for allowing us [...] EFW (oz) 4 oz EFW by: Hadlock (FEV-AT-ON-FL) Extended Canoe Builder 2.7 mm Head / Face / Neck [...] Suboptimal view: limited by late gestational age Normal [facility] US for pregnancyon 5 Interpreted by: Carline Pollack Indication ======== Growth [...] normal amount -No malformations by limited survey -[facility] 06/12 Thank you for allowing us [...] EFW (oz) 4 oz EFW by: Hadlock (DSO-HS-CK-FL) Extended Canoe Builder 2.7 mm Head / Face / Neck [...] Gestational- on Insulin History ====== General History Palwjt185 cm Height (ft)5 ft Height (in)4 in Previous Outcomes Hdcjikk63 Para5 Children born living ?37w1 Pregnancies delivered at term (T)1 Pregnancies delivered (P)4 Abortions (A)9 Living children (L)5 Children born living <37w4 Miscarriages9 Other:Vaginal Delivery Maternal Assessment Tidqiz530 cm Height (ft)5 ft Height (in)4 in Qbmymt406 kg Weight (lb)285 lb Weight gain0 kg Weight gain (lb)0 lb BMI48.92 kg/m Physical Exam Initial weight (lb)285 lb ========= Schilling . Number of fetuses: 1 Dating ====== Cycle:LMP date not known GA by prior qbmmpemqsn90 w + 3 d [place] by prior [...] normal amount -No malformations by limited survey -[facility] 06/12 Thank you for allowing us [...] Biometry Standard BPD87.0 mm35w 1d >99% Hadlock VSR277.9 mm 89% INTERGROWTH-21st HC306.9 mm34w 1d 85% Hadlock AC315.1 mm35w 3d >99% Hadlock Femur61.1 mm31w 5d 44% Hadlock HC / AC0.97 EFW2,395 g34w 1d 99% Hadlock EFW (lb)5 lb EFW (oz)4 oz EFW by:Hadlock (FJY-CZ-VM-FL) Extended Vp2.7 mm Head / Face / Neck Cephalic index0.81 69% Nicolaides Extremities / Bony Struc FL / BPD0.70 FL / HC0.20 FL / AC0.19 Other Structures VOJ350 bpm Anatomy Cranium:Normal Lateral ventricles:Normal Midline falx:Normal [...] Suboptimal view: limited by late gestational age [facility] Work Phone: [place] [address] Work Phone: Radiology Study observation (narrative) [facility] Work Phone: CBC panel Auto (Bld)on 01-29 Erythrocyte distribution width (RBC) [Ratio] 13.4 % Normal 11.5-14.5 [facility] Comment on above: Performed By: #### 5 8410-2 #### BREEZY LOCO ([id number]) [facility] ([facility]) [address] [place] [address] Hematocrit (Bld) [Volume fraction] 37.0 % Normal 36.0-46.0 [facility] Comment on above: Performed By: #### 5 8410-2 #### BREEZY LOCO ([id number]) [facility] ([facility]) [address] [place] [address] Hemoglobin (Bld) [Mass/Vol] 11.8 g/dL Low 12.0-16.0 [facility] Comment on above: Performed By: #### 5 8410-2 #### BREEZY LOCO ([id number]) [facility] ([facility]) [address] [place] [address] MCH (RBC) [Entitic mass] 28.2 pg Normal 26.0-34.0 [facility] Comment on above: Performed By: #### 5 8410-2 #### BREEZY LOCO ([id number]) [facility] ([facility]) [address] [place] [address] MCHC (RBC) [Mass/Vol] 31.9 g/dL Low 32.0-36.0 [facility] Comment on above: Performed By: #### 5 8410-2 #### BREEZY LOCO ([id number]) [facility] ([facility]) [address] [place] [address] MCV (RBC) [Entitic vol] 88 fL Normal 80-100 [facility] Comment on above: Performed By: #### 5 8410-2 #### BREEZY LOCO ([id number]) [facility] ([facility]) [address] [place] [address] Nucleated RBC/100 WBC (Bld) [Ratio] 0.0 /100 WBCs Normal 0.0-0.0 [facility] Comment on above: Performed By: #### 5 8410-2 #### BREEZY LOCO ([id number]) [facility] ([facility]) [address] [place] [address] Platelets (Bld) [#/Vol] 261 x10*3/uL Normal 150-450 [facility] Comment on above: Performed By: #### 5 8410-2 #### BREEZY LOCO ([id number]) [facility] ([facility]) [address] [place] [address] RBC (Bld) [#/Vol] 4.19 x10*6/uL Normal 4.00-5.20 [facility] Comment on above: Performed By: #### 5 8410-2 #### BREEZY LOCO ([id number]) [facility] ([facility]) [address] [place] [address] WBC (Bld) [#/Vol] 15.6 x10*3/uL High 4.4-11.3 [facility] Comment on above: Performed By: #### 5 8410-2 #### BREEZY LOCO ([id number]) [facility] ([facility]) [address] [place] [address] Comprehensive metabolic 2000 panelon 01-29-2025 Albumin BCP dye [Mass/Vol] 3.4 g/dL Normal 3.4-5.0 [facility] Comment on above: Performed By: #### 2 4323-8 #### BREEZY LOCO ([id number]) [facility] ([facility]) [address] [place] [address] ALP [Catalytic activity/Vol] 73 U/L Normal 33-110 [facility] Comment on above: Performed By: #### 2 4323-8 #### BREEZY LOCO ([id number]) [facility] ([facility]) [address] [place] [address] ALT With P-5'-P [Catalytic activity/Vol] 6 U/L Low 7-45 [facility] Comment on above: Result Comment: Nguyen ents treated with Sulfasalazine may generate falsely decreased results for ALT. Performed By: #### 2 4323-8 #### BREEZY LOCO ([id number]) [facility] ([facility]) [address] [place] [address] Anion gap [Moles/Vol] 15 mmol/L Normal 10-20 [facility] Comment on above: Performed By: #### 2 4323-8 #### BREEZY LOCO ([id number]) [facility] ([facility]) [address] [place] [address] AST With P-5'-P [Catalytic activity/Vol] 9 U/L Normal 9-39 [facility] Comment on above: Performed By: #### 2 4323-8 #### BREEZY LOCO ([id number]) [facility] ([facility]) [address] [place] [address] Bilirubin [Mass/Vol] 0.5 mg/dL Normal 0.0-1.2 [facility] Comment on above: Performed By: #### 2 4323-8 #### BREEZY LOCO ([id number]) [facility] ([facility]) [address] [place] [address] Calcium [Mass/Vol] 8.9 mg/dL Normal 8.6-10.3 [facility] Comment on above: Performed By: #### 2 4323-8 #### BREEZY LOCO ([id number]) [facility] ([facility]) [address] [place] [address] Chloride [Moles/Vol] 105 mmol/L Normal 98-107 [facility] Comment on above: Performed By: #### 2 4323-8 #### BREEZY LOCO ([id number]) [facility] ([facility]) [address] [place] [address] CO2 [Moles/Vol] 21 mmol/L Normal 21-32 [facility] Comment on above: Performed By: #### 2 4323-8 #### BREEZY LOCO ([id number]) [facility] ([facility]) [address] [place] [address] Creatinine [Mass/Vol] 0.55 mg/dL Normal 0.50-1.05 [facility] Comment on above: Performed By: #### 2 4323-8 #### BREEZY LOCO ([id number]) [facility] ([facility]) [address] [place] [address] GFR/1.73 sq M.predicted MDRD (S/P/Bld) [Vol rate/Area] mL/min/{1.73_m2} Normal >60 [facility] Comment on above: Result Comment: Calc ulations of estimated GFR are performed using the 2020 CKD-EPI Study Refit equation without the race variable for the IDMS-Traceable creatinine methods. https://jasn.asnjournals.org/content//ASN.460715 6999 Performed By: #### 2 4323-8 #### BREEZY LOCO ([id number]) [facility] ([facility]) [address] [place] [address] Glucose [Mass/Vol] 93 mg/dL Normal 74-99 [facility] Comment on above: Performed By: #### 2 4323-8 #### BREEZY LOCO ([id number]) [facility] ([facility]) [address] [place] [address] Potassium [Moles/Vol] 3.6 mmol/L Normal 3.5-5.3 [facility] Comment on above: Performed By: #### 2 4323-8 #### BREEZY LOCO ([id number]) [facility] ([facility]) [address] [place] [address] Protein [Mass/Vol] 6.4 g/dL Normal 6.4-8.2 [facility] Comment on above: Performed By: #### 2 4323-8 #### BREEZY LOCO ([id number]) [facility] ([facility]) [address] [place] [address] Sodium [Moles/Vol] 137 mmol/L Normal 136-145 [facility] Comment on above: Performed By: #### 2 4323-8 #### BREEZY LOCO ([id number]) [facility] ([facility]) [address] [place] [address] Urea nitrogen [Mass/Vol] 6 mg/dL Normal 6-23 [facility] Comment on above: Performed By: #### 2 4323-8 #### BREEZY LOCO ([id number]) [facility] ([facility]) [address] [place] [address] Glucose Test strip manual (B ld) [Mass/Vol]on 01-29-2025 Glucose [Mass/Vol] 124 mg/dL High 74-99 [facility] Comment on above: Performed By: #### 4 548-4 #### QUIN Simon ([id number]) [facility] ([facility]) [address] [place] [address] MR/BMS.BPon 01-29-2025 MR/BMS.BP Normal [facility] US OB LIMITED 1+ FETUSESon 0 [...] ====== Transabdominal ultrasound examination. View: Sufficient Normal [facility] MR/BMS.BPon 01-27-2025 MR/BMS.BP Normal [facility] PROTEIN, TOTAL W/CREAT, RAND OM URINEon 01-23-2025 Creatinine (U) [Mass/Vol] 61 mg/dL Normal 20-275 [facility] Comment on above: Performed By: #### 1 769, 38171 #### [facility] of [place] [address], [address] [place] [address] Pre Planning Advisor: Salvador Swanson MD Protein (U) [Mass/Vol] 15 mg/dL Normal 5-24 [facility] Comment on above: Performed By: #### 1 759, 29217 #### [facility] [place] [address] , [address] [place] [address] Pre Planning Advisor: Salvador Swanson MD PROTEIN/CREATININE RATIO 246 mg/g creat High 24-184 [facility] Comment on above: Performed By: #### 1 069, 79504 #### [facility] of [address], [address] [place] [address] Pre Planning Advisor: Salvador Swanson MD PROTEIN/CREATININE RATIO 0.246 mg/mg creat High 0.024-0.184 [facility] Comment on above: Performed By: #### 1 209, 89691 #### [facility] of [address] , [address] [place] [address] Pre Planning Advisor: Salvador Swanson MD CBC panel Auto (Bld)on 01-22 Erythrocyte distribution width (RBC) [Ratio] 13.4 % Normal 11.5-14.5 [facility] Comment on above: Performed By: #### 5 8410-2 #### BREEZY LOCO ([id number]) [facility] ([facility]) [address] [place] [address] Hematocrit (Bld) [Volume fraction] 36.7 % Normal 36.0-46.0 [facility] Comment on above: Performed By: #### 5 8410-2 #### BREEZY LOCO ([id number]) [facility] ([facility]) [address] [place] [address] Hemoglobin (Bld) [Mass/Vol] 11.8 g/dL Low 12.0-16.0 [facility] Comment on above: Performed By: #### 5 8410-2 #### BREEZY LOCO ([id number]) [facility] ([facility]) [address] [place] [address] MCH (RBC) [Entitic mass] 28.4 pg Normal 26.0-34.0 [facility] Comment on above: Performed By: #### 5 8410-2 #### BREEZY LOCO ([id number]) [facility] ([facility]) [address] [place] [address] MCHC (RBC) [Mass/Vol] 32.2 g/dL Normal 32.0-36.0 [facility] Comment on above: Performed By: #### 5 8410-2 #### BREEZY LOCO ([id number]) [facility] ([facility]) [address] [place] [address] MCV (RBC) [Entitic vol] 88 fL Normal 80-100 [facility] Comment on above: Performed By: #### 5 8410-2 #### BREEZY LOCO ([id number]) [facility] ([facility]) [address] [place] [address] Nucleated RBC/100 WBC (Bld) [Ratio] 0.0 /100 WBCs Normal 0.0-0.0 [facility] Comment on above: Performed By: #### 5 8410-2 #### BREEZY LOCO ([id number]) [facility] ([facility]) [address] [place] [address] Platelets (Bld) [#/Vol] 250 x10*3/uL Normal 150-450 [facility] Comment on above: Performed By: #### 5 8410-2 #### BREEZY LOCO ([id number]) [facility] ([facility]) [address] [place] [address] RBC (Bld) [#/Vol] 4.15 x10*6/uL Normal 4.00-5.20 [facility] Comment on above: Performed By: #### 5 8410-2 #### BREEZY LOCO ([id number]) [facility] ([facility]) [address] [place] [address] WBC (Bld) [#/Vol] 14.4 x10*3/uL High 4.4-11.3 [facility] Comment on above: Performed By: #### 5 8410-2 #### BREEZY LOCO ([id number]) [facility] ([facility]) [address] [place] [address] Comprehensive metabolic 2000 panelon 01-22-2025 Albumin BCP dye [Mass/Vol] 3.6 g/dL Normal 3.4-5.0 [facility] Comment on above: Performed By: #### 2 4323-8 #### BREEZY LOCO ([id number]) [facility] ([facility]) [address] [place] [address] ALP [Catalytic activity/Vol] 79 U/L Normal 33-110 [facility] Comment on above: Performed By: #### 2 4323-8 #### BREEZY LOCO ([id number]) [facility] ([facility]) [address] [place] [address] ALT With P-5'-P [Catalytic activity/Vol] 7 U/L Normal 7-45 [facility] Comment on above: Result Comment: Nguyen ents treated with Sulfasalazine may generate falsely decreased results for ALT. Performed By: #### 2 4323-8 #### BREEZY LOCO ([id number]) [facility] ([facility]) [address] [place] [address] Anion gap [Moles/Vol] 14 mmol/L Normal 10-20 [facility] Comment on above: Performed By: #### 2 4323-8 #### BREEZY LOCO ([id number]) [facility] ([facility]) [address] [place] [address] AST With P-5'-P [Catalytic activity/Vol] 15 U/L Normal 9-39 [facility] Comment on above: Performed By: #### 2 4323-8 #### BREEZY LOCO ([id number]) [facility] ([facility]) [address] [place] [address] Bilirubin [Mass/Vol] 0.5 mg/dL Normal 0.0-1.2 [facility] Comment on above: Performed By: #### 2 4323-8 #### BREEZY ALANIZFRI ([id number]) [facility] ([facility]) [address] [place] [address] Calcium [Mass/Vol] 9.0 mg/dL Normal 8.6-10.3 [facility] Comment on above: Performed By: #### 2 4323-8 #### BREEZY ALANIZFRI ([id number]) [facility] ([facility]) [address] [place] [address] Chloride [Moles/Vol] 105 mmol/L Normal 98-107 [facility] Comment on above: Performed By: #### 2 4323-8 #### BREEZY ALANIZFRI ([id number]) [facility] ([facility]) [address] [place] [address] CO2 [Moles/Vol] 18 mmol/L Low 21-32 [facility] Comment on above: Performed By: #### 2 4323-8 #### BREEZY LOCO ([id number]) [facility] ([facility]) [address] [place] [address] Creatinine [Mass/Vol] 0.47 mg/dL Low 0.50-1.05 [facility] Comment on above: Performed By: #### 2 4323-8 #### BREEZY ALANIZFRI ([id number]) [facility] ([facility]) [address] [place] [address] GFR/1.73 sq M.predicted MDRD (S/P/Bld) [Vol rate/Area] mL/min/{1.73_m2} Normal >60 [facility] Comment on above: Result Comment: Calc ulations of estimated GFR are performed using the 2020 CKD-EPI Study Refit equation without the race variable for the IDMS-Traceable creatinine methods. https://jasn.asnjournals.org/content/early//ASN.205871 8753 Performed By: #### 2 4323-8 #### BREEZY LOCO ([id number]) [facility] ([facility]) [address] [place] [address] Glucose [Mass/Vol] 122 mg/dL High 74-99 [facility] Comment on above: Performed By: #### 2 4323-8 #### BREEZY LOCO ([id number]) [facility] ([facility]) [address] [place] [address] Potassium [Moles/Vol] 3.8 mmol/L Normal 3.5-5.3 [facility] Comment on above: Performed By: #### 2 4323-8 #### BREEZY LOCO ([id number]) [facility] ([facility]) [address] [place] [address] Protein [Mass/Vol] 6.7 g/dL Normal 6.4-8.2 [facility] Comment on above: Performed By: #### 2 4323-8 #### BREEZY LOCO ([id number]) [facility] ([facility]) [address] [place] [address] Sodium [Moles/Vol] 133 mmol/L Low 136-145 [facility] Comment on above: Performed By: #### 2 4323-8 #### BREEZY LOCO ([id number]) [facility] ([facility]) [address] [place] [address] Urea nitrogen [Mass/Vol] 6 mg/dL Normal 6-23 [facility] Comment on above: Performed By: #### 2 4323-8 #### BREEZY LOCO ([id number]) [facility] ([facility]) [address] [place] [address] Glucose Test strip manual (B ld) [Mass/Vol]on 01-22-2025 Glucose [Mass/Vol] 178 mg/dL High 74 - 99 mg/dL [facility] Interpretation and review of laboratory results Abnormal [facility] Glucose [Mass/Vol] 178 mg/dL High 74-99 [facility] Comment on above: Performed By: #### 4 548-4 #### QUIN Smion ([id number]) [facility] ([facility]) [address] [place] [address] US OB LIMITED 1+ FETUSESon 0 01-22-2025 [...] view: limited by maternal body habitus Normal [facility] US for pregnancyon 5 Interpreted by: Judit Patino Indication ======== BPP [...] on Insulin. Polyhydramnios History ====== General History Rlhsda035 cm Height (ft)5 ft Height (in)4 in Previous Outcomes Jgadtln47 Para5 Children born living ?37w1 Pregnancies delivered at term (T)1 Pregnancies delivered (P)4 Abortions (A)9 Living children (L)5 Children born living <37w4 Miscarriages9 Other:Vaginal Delivery Maternal Assessment Wrchzv562 cm Height (ft)5 ft Height (in)4 in Bvpldu360 kg Weight (lb)285 lb Weight gain0 kg Weight gain (lb)0 lb BMI48.92 kg/m Physical Exam Initial weight (lb)285 lb ========= Schilling . Number of fetuses: 1 Dating ====== Cycle:LMP date not known [place] by prior umfypascmp66 w + 3 d [place] by prior [...] Suboptimal view: limited by maternal body habitus [facility] Work Phone: Radiology Study observation (narrative) [facility] Work Phone: US for pregnancyOrdered By: Judit Jeffery on 01-22-2025 [facility] Work Phone: CBC (H/H, RBC, INDICES, WBC, PLT)on 01-16-2025 Erythrocyte distribution width (RBC) [Ratio] 12.6 % Normal 11.0-15.0 [facility] Comment on above: Performed By: #### 1 384, 43608 #### [facility] [place] [address] Pre Planning Advisor: Salvador Swanson MD Hematocrit (Bld) [Volume fraction] 35.3 % Normal 35.0-45.0 [facility] Comment on above: Performed By: #### 4 714, 76848 #### [facility] [address], [address] [place] [address] Pre Planning Advisor: Salvador Swanson MD Hemoglobin (Bld) [Mass/Vol] 11.8 g/dL Normal 11.7-15.5 [facility] Comment on above: Performed By: #### 1 35, 38784 #### [facility] [place] [address] Pre Planning Advisor: Salvador Swanson MD MCH (RBC) [Entitic mass] 29.4 pg Normal 27.0-33.0 [facility] Comment on above: Performed By: #### 1 54, 32048 #### [facility] [place] [address] Pre Planning Advisor: Salvador Swanson MD MCHC (RBC) [Mass/Vol] 33.4 [...] patient's clinical condition. Performed By: #### 1 80, 52807 #### [facility] [place] [address] Pre Planning Advisor: Salvador Swanson MD MCV (RBC) [Entitic vol] 87.8 fL Normal 80.0-100.0 [facility] Comment on above: Performed By: #### 1 74, 64681 #### [facility] [place] [address] Pre Planning Advisor: Salvador Swanson MD Platelet mean volume (Bld) [Entitic vol] 10.4 fL Normal 7.5-12.5 [facility] Comment on above: Performed By: #### 1 58, 31878 #### [facility] of [place] [address] Pre Planning Advisor: Salvador Swanson MD Platelets (Bld) [#/Vol] 238 10*3/uL Normal 140-400 [facility] Comment on above: Performed By: #### 1 41, 23240 #### [facility] of [place] [address] [place] [address] Pre Planning Advisor: Salvador Swanson MD RBC (Bld) [#/Vol] 4.02 10*6/uL Normal 3.80-5.10 [facility] Comment on above: Performed By: #### 1 759, 32383 #### [facility] of [address], [address] [place] [address] Pre Planning Advisor: Salvador Swanson MD WBC (Bld) [#/Vol] 13.7 10*3/uL High 3.8-10.8 [facility] Comment on above: Performed By: #### 1 759, 78641 #### [facility] of [address], [address] [place] [address] Pre Planning Advisor: Salvador Swanson MD COMPREHENSIVE METABOLIC PANE L W/ANION GAPon 01-16-2025 Albumin [Mass/Vol] 3.4 g/dL Low 3.6-5.1 [facility] Comment on above: Performed By: #### 1 759, 32554 #### [facility] of [address], [address] [place] [address] Pre Planning Advisor: Salvador Swanson MD ALP [Catalytic activity/Vol] 64 U/L Normal 31-125 [facility] Comment on above: Performed By: #### 1 689, 15138 #### [facility] of [address], [address] [place] [address] Pre Planning Advisor: Salvador Swanson MD ALT [Catalytic activity/Vol] 5 U/L Low 6-29 [facility] Comment on above: Performed By: #### 1 729, 59964 #### [facility] of [address], [address] [place] [address] Pre Planning Advisor: Salvador Swanson MD AST [Catalytic activity/Vol] 9 U/L Low 10-30 [facility] Comment on above: Performed By: #### 1 239, 28445 #### [facility] of [address], [address] [place] [address] Pre Planning Advisor: Salvador Swanson MD Bilirubin [Mass/Vol] 0.4 mg/dL Normal 0.2-1.2 [facility] Comment on above: Performed By: #### 1 799, 70189 #### [facility] [place] [address] Pre Planning Advisor: Salvador Swanson MD Calcium [Mass/Vol] 8.9 mg/dL Normal 8.6-10.2 [facility] Comment on above: Performed By: #### 1 13, 15060 #### [facility] [place] [address] Pre Planning Advisor: Salvador Swanson MD Chloride [Moles/Vol] 104 mmol/L Normal 98-110 [facility] Comment on above: Performed By: #### 1 09Surya, 86146 #### [facility] [place] [address] Pre Planning Advisor: Salvador Swanson MD CO2 [Moles/Vol] 22 mmol/L Normal 20-32 [facility] Comment on above: Performed By: #### 1 22Surya, 19362 #### [facility] [place] [address] Pre Planning Advisor: Salvador Swanson MD Creatinine [Mass/Vol] 0.62 mg/dL Normal 0.50-0.[address] [facility] Comment on above: Performed By: #### 1 300, 29590 #### [facility] [place] [address] Pre Planning Advisor: Salvador Swanson MD ELECTROLYTE BALANCE 12 mmol/L (calc) Normal 7-17 [facility] Comment on above: Performed By: #### 1 461, 54751 #### [facility] [place] [address] Pre Planning Advisor: Salvador Swanson MD GFR/1.73 sq M.predicted among non-blacks MDRD (S/P/Bld) [Vol rate/Area] 119 mL/min/{1.73_m2} Normal > OR = 60 [facility] Comment on above: Performed By: #### 1 169, 60409 #### [facility] [place] [address] Pre Planning Advisor: Salvador Swanson MD Glucose [Mass/Vol] 122 mg/dL High 65-99 [facility] Comment on above: Result Comment: Fasting reference interval For someone without known diabetes, a glucose value between 100 and 125 mg/dL is consistent with prediabetes and should be confirmed with a follow-up test. Performed By: #### 1 759, 82885 #### [facility] [place] [address] Pre Planning Advisor: Salvador Swanson MD Potassium [Moles/Vol] 3.6 mmol/L Normal 3.5-5.[address] [facility] Comment on above: Performed By: #### 1 879, 96221 #### [facility] [place] [address] Pre Planning Advisor: Salvador Swanson MD Protein [Mass/Vol] 6.3 g/dL Normal 6.1-8.1 [facility] Comment on above: Performed By: #### 1 689, 47349 #### [facility] [place] [address] Pre Planning Advisor: Salvador Swanson MD Sodium [Moles/Vol] 138 mmol/L Normal 135-146 [facility] Comment on above: Performed By: #### 1 589, 03934 #### [facility] [place] [address] Pre Planning Advisor: Salvador Swanson MD Urea nitrogen [Mass/Vol] 6 mg/dL Low 7-25 [facility] Comment on above: Performed By: #### 1 413, 55662 #### [facility] [place] [address] Pre Planning Advisor: Salvador Swanson MD Glucose Test strip manual (B ld) [Mass/Vol]on 01-15-2025 Glucose [Mass/Vol] 118 mg/dL High 74 - 99 mg/dL [facility] Interpretation and review of laboratory results Abnormal [facility] Glucose [Mass/Vol] 118 mg/dL High 74-99 [facility] Comment on above: Performed By: #### 4 548-4 #### QUIN Simon ([id number]) [facility] ([facility]) [address] [place] [address] US OB FOLLOW UP TRANSABDOMIN AL APPROACHon [...] EFW (oz) 8 oz EFW by: Hadlock (DFA-BP-CM-FL) Extended Canoe Builder 8.8 mm Head / Face / Neck [...] Suboptimal view: limited by late gestational age Normal [facility] US for pregnancyon 5 Interpreted by: Jasmina Benítez Indication ======== Growth [...] EFW (oz) 8 oz EFW by: Hadlock (QNQ-VE-EM-FL) Extended Canoe Builder 8.8 mm Head / Face / Neck [...] movements 2: tone 2: Amniotic fluid volume /8 Biophysical profile score Maternal Structures Uterus / [...] Gestational- on Insulin. History ====== General History Tbssbm042 cm Height (ft)5 ft Height (in)4 in Previous Outcomes Itcksce63 Para5 Children born living ?37w1 Pregnancies delivered at term (T)1 Pregnancies delivered (P)4 Abortions (A)9 Living children (L)5 Children born living <37w4 Miscarriages9 Other:Vaginal Delivery Maternal Assessment Loccth696 cm Height (ft)5 ft Height (in)4 in Pvbgwt141 kg Weight (lb)285 lb Weight gain0 kg Weight gain (lb)0 lb BMI48.92 kg/m Physical Exam Initial weight (lb)285 lb ========= Schilling . Number of fetuses: 1 Dating ====== Cycle:LMP date not known GA by prior jmgtgljeya61 w + 3 d [place] by prior [...] (lb)3 lb EFW (oz)8 oz EFW by:Hadlock (SRX-RB-SH-FL) Extended Vp8.8 mm Head / Face / Neck Cephalic index0.79 54% Nicolaides Extremities / Bony Struc FL / BPD0.73 FL / HC0.20 FL / AC0.22 Other Structures JGI797 bpm Anatomy Cranium:Normal Lateral ventricles:Normal Midline falx:Normal [...] Suboptimal view: limited by late gestational age [facility] Work Phone: Radiology Study observation (narrative) [facility] Work Phone: US for pregnancyOrdered By: Jasmina Benítez on 01-15-2025 [facility] Work Phone: MR/BMS.BPon 01-13-2025 MR/BMS.BP Normal [facility] CBC panel Auto (Bld)on 01-08 Erythrocyte distribution width (RBC) [Ratio] 13.1 % 11.5 - 14.5 % [facility] Hematocrit (Bld) [Volume fraction] 36.8 % 36.0 - 46.0 % [facility] Hemoglobin (Bld) [Mass/Vol] 11.6 g/dL Low 12.0 - 16.0 g/dL [facility] Interpretation and review of laboratory results Abnormal [facility] MCH (RBC) [Entitic mass] 29.2 pg 26.0 - 34.0 pg [facility] MCHC (RBC) [Mass/Vol] 31.5 g/dL Low 32.0 - 36.0 g/dL [facility] MCV (RBC) [Entitic vol] 93 fL 80 - 100 fL [facility] Nucleated RBC/100 WBC (Bld) [Ratio] 0 % [facility] Platelets (Bld) [#/Vol] 232 10*3/uL [facility] RBC (Bld) [#/Vol] 3.97 10*6/uL Low [facility] WBC (Bld) [#/Vol] 15.6 10*3/uL High [facility] Erythrocyte distribution width (RBC) [Ratio] 13.1 % Normal 11.5-14.5 [facility] Comment on above: Performed By: #### 5 8410-2 #### QUIN Simon ([id number]) [facility] ([facility]) [id number] [place] [address]7819 Hematocrit (Bld) [Volume fraction] 36.8 % Normal 36.0-46.0 [facility] Comment on above: Performed By: #### 5 8410-2 #### QUIN Simon ([id number]) [facility] ([facility]) [address] [place] [address] 74374 Hemoglobin (Bld) [Mass/Vol] 11.6 g/dL Low 12.0-16.0 [facility] Comment on above: Performed By: #### 5 8410-2 #### QUIN Simon ([id number]) [facility] ([facility]) [address] [place] [address] 87600 MCH (RBC) [Entitic mass] 29.2 pg Normal 26.0-34.0 [facility] Comment on above: Performed By: #### 5 8410-2 #### QUIN Simon ([id number]) [facility] ([facility]) [address] [place] [address] 11088 MCHC (RBC) [Mass/Vol] 31.5 g/dL Low 32.0-36.0 [place] Comment on above: Performed By: #### 5 8410-2 #### QUIN Simon ([id number]) [facility] ([facility]) [address] [place] [address] 85637 MCV (RBC) [Entitic vol] 93 fL Normal 80-100 [facility] Comment on above: Performed By: #### 5 8410-2 #### QUIN Simon ([id number]) [facility] ([facility]) [id number] [place] [address] 82937 Nucleated RBC/100 WBC (Bld) [Ratio] 0.0 /100 WBCs Normal 0.0-0.0 [facility] Comment on above: Performed By: #### 5 8410-2 #### QUIN Simon ([id number]) [facility] ([facility]) [address] [place] [address] 78125 Platelets (Bld) [#/Vol] 232 x10*3/uL Normal 150-450 [facility] Comment on above: Performed By: #### 5 8410-2 #### QUIN Simon ([id number]) [facility] ([facility]) [address] [place] [address] RBC (Bld) [#/Vol] 3.97 x10*6/uL Low 4.00-5.20 [facility] Comment on above: Performed By: #### 5 8410-2 #### QUIN Simon ([id number]) [facility] ([facility]) [address] [place] [address] WBC (Bld) [#/Vol] 15.6 x10*3/uL High 4.4-11.3 [facility] Comment on above: Performed By: #### 5 8410-2 #### QUIN Simon ([id number]) [facility] ([facility]) [address] [place] [address] Comprehensive metabolic 2000 panelon 01-08-2025 Albumin BCP dye [Mass/Vol] 3.3 g/dL Low 3.4 - 5.0 g/dL [facility] ALP [Catalytic activity/Vol] 65 U/L 33 - 110 U/L [facility] ALT With P-5'-P [Catalytic activity/Vol] 6 U/L Low 7 - 45 U/L [facility] Comment on above: Patients treated wit h Sulfasalazine may generate falsely decreased results for ALT. Anion gap [Moles/Vol] 16 mmol/L 10 - 2 0 mmol/L [facility] AST With P-5'-P [Catalytic activity/Vol] 9 U/L 9 - 39 U/L [facility] Bilirubin [Mass/Vol] 0.5 mg/dL 0.0 - 1 .2 mg/dL [facility] Calcium [Mass/Vol] 8.8 mg/dL 8.6 - 10. 6 mg/dL [facility] Chloride [Moles/Vol] 106 mmol/L 98 - 10 7 mmol/L [facility] CO2 [Moles/Vol] 18 mmol/L Low 21 - 32 mmol/L [facility] Creatinine [Mass/Vol] 0.5 mg/dL 0.50 - 1.05 mg/dL [facility] eGFR - PINF [facility] Comment on above: Calculations of zoya mated GFR are performed using the 2020 CKD-EPI Study Refit equation without the race variable for the IDMS-Traceable creatinine methods. https://jasn.asnjournals.org/content/early/ASN.838811 8160 Glucose [Mass/Vol] 94 mg/dL 74 - 99 mg/dL [facility] Interpretation and review of laboratory results Abnormal [facility] Potassium [Moles/Vol] 4 mmol/L 3.5 - 5.3 mmol/L [facility] Protein [Mass/Vol] 6 g/dL Low 6.4 - 8.2 g/dL [facility] Sodium [Moles/Vol] 136 mmol/L 136 - 145 mmol/L [facility] Urea nitrogen [Mass/Vol] 7 mg/dL 6 - 23 mg/dL [facility] Albumin BCP dye [Mass/Vol] 3.3 g/dL Low 3.4-5.0 [facility] Comment on above: Performed By: #### 5 8410-2 #### QUIN Simon ([id number]) [facility] ([facility]) [address] [place] [address] 95658 ALP [Catalytic activity/Vol] 65 U/L Normal 33-110 [facility] Comment on above: Performed By: #### 5 8410-2 #### QUIN Simon ([id number]) [facility] ([facility]) [address] [place] [address] 24200 ALT With P-5'-P [Catalytic activity/Vol] 6 U/L Low 7-45 [facility] Comment on above: Result Comment: Nguyen ents treated with Sulfasalazine may generate falsely decreased results for ALT. Performed By: #### 5 8410-2 #### QUIN Simon ([id number]) [facility] ([facility]) [address] [place] [address] [place] [address] Anion gap [Moles/Vol] 16 mmol/L Normal 10-20 [place] Comment on above: Performed By: #### 5 8410-2 #### QUIN Simon ([id number]) [facility] ([facility]) [address] [place] [address] AST With P-5'-P [Catalytic activity/Vol] 9 U/L Normal 9-39 [facility] Comment on above: Performed By: #### 5 8410-2 #### QUIN Simon ([id number]) [facility] ([facility]) [address] [place] [address] Bilirubin [Mass/Vol] 0.5 mg/dL Normal 0.0-1.2 [facility] Comment on above: Performed By: #### 5 8410-2 #### QUIN Simon ([id number]) [facility] ([facility]) [address] [place] [address]39 Calcium [Mass/Vol] 8.8 mg/dL Normal 8.6-10.6 [facility] Comment on above: Performed By: #### 5 8410-2 #### QUIN Simon ([id number]) [facility] ([facility]) [address] [place] [address] Chloride [Moles/Vol] 106 mmol/L Normal 98-107 [facility] Comment on above: Performed By: #### 5 8410-2 #### QUIN Simon ([id number]) [facility] ([facility]) [address] [place] [address] CO2 [Moles/Vol] 18 mmol/L Low 21-32 [facility] Comment on above: Performed By: #### 5 8410-2 #### QUIN Simon ([id number]) [facility] ([facility]) [address] [place] [address] Creatinine [Mass/Vol] 0.50 mg/dL Normal 0.50-1.05 [place] Comment on above: Performed By: #### 5 8410-2 #### QUIN Simon ([id number]) [facility] ([facility]) [address] [place] [address] GFR/1.73 sq M.predicted MDRD (S/P/Bld) [Vol rate/Area] mL/min/{1.73_m2} Normal >60 [facility] Comment on above: Result Comment: Calc ulations of estimated GFR are performed using the 2020 CKD-EPI Study Refit equation without the race variable for the IDMS-Traceable creatinine methods. https://jasn.asnjournals.org/content/early//ASN.315919 5318 Performed By: #### 5 8410-2 #### QUIN Simon ([id number]) [facility] ([facility]) [address] [place] [address] 43145 Glucose [Mass/Vol] 94 mg/dL Normal 74-99 [facility] Comment on above: Performed By: #### 5 8410-2 #### QUIN Simon ([id number]) [facility] ([facility]) [address] [place] [address] Potassium [Moles/Vol] 4.0 mmol/L Normal 3.5-5.3 [place] Comment on above: Performed By: #### 5 8410-2 #### QUIN Simon ([id number]) [facility] ([facility]) [address] [place] [address] 15225 Protein [Mass/Vol] 6.0 g/dL Low 6.4-8.2 [facility] Comment on above: Performed By: #### 5 8410-2 #### QUIN Simon ([id number]) [facility] ([facility]) [address] [place] [address] 26806 Sodium [Moles/Vol] 136 mmol/L Normal 136-145 [facility] Comment on above: Performed By: #### 5 8410-2 #### QUIN Simon ([id number]) [facility] ([facility]) [address] [place] [address] 23355 Urea nitrogen [Mass/Vol] 7 mg/dL Normal 6-23 [facility] Comment on above: Performed By: #### 5 8410-2 #### QUIN Simno ([id number]) [facility] ([facility]) [address] [place] [address] 48880 Glucose Test strip manual (B ld) [Mass/Vol]on 01-08-2025 Glucose [Mass/Vol] 91 mg/dL 74 - 99 mg/dL [facility] Interpretation and review of laboratory results Normal [facility] Glucose [Mass/Vol] 91 mg/dL Normal 74-99 [facility] Comment on above: Performed By: #### 5 8410-2 #### QUIN Simon ([id number]) [facility] ([facility]) [address] [place] [address] 77874 Glucose [Mass/Vol] 172 mg/dL High 74-99 [facility] Comment on above: Performed By: #### 5 8410-2 #### QUIN Simon ([id number]) [facility] ([facility]) [address] [place] [address] 11600 Proteinon 01-08-2025 Protein Qn (U) 11 mg/dL Normal 5-24 [facility] Comment on above: Performed By: #### 5 8410-2 #### QUIN Simon ([id number]) [facility] ([facility]) [address] [place] [address] 62500 Protein Qn (U)on 01-08-2025 Creatinine (U) [Mass/Vol] 46.3 mg/dL 20.0 - 320.0 mg/dL [facility] Interpretation and review of laboratory results Abnormal [facility] Protein/Creatinine (U) [Mass ratio] 0.24 mg/g High [facility] Creatinine (U) [Mass/Vol] 46.3 mg/dL Normal 20.0-320.0 [facility] Comment on above: Performed By: #### 5 8410-2 #### QUIN Simon ([id number]) [facility] ([facility]) [address] [place] [address] Protein/Creatinine (U) [Mass ratio] 0.24 mg/mg Creat High 0.00-0.17 [facility] Comment on above: Performed By: #### 5 8410-2 #### QUIN Simon ([id number]) [facility] ([facility]) [address] [place] [address] Protein, Urine Randomon 03-0 Protein Qn (U) 11 mg/dL 5 - 24 mg/dL [facility] US OB LIMITED 1+ FETUSESon 0 - US OB LIMITED 1+ FETUSES Interpreted by: [...] view: limited by maternal body habitus Normal [facility] Urinalysis macro (dipstick) panel (U)on 01-08-2025 [facility] fld[facility] Bilirubin, UA Negative [facility] Work Phone: Blood, UA Negative [facility] Work Phone: Clarity, UA Clear [facility] Work Phone: Color, UA Yellow [facility] Work Phone: Glucose, UA Negative [facility] Work Phone: Ketones, UA Negative [facility] Work Phone: Leukocytes, UA TRACE [facility] Work Phone: [phone] Nitrite, UA Negative [facility] Work Phone: [phone] pH, UA 6 [facility] Work Phone: [phone] Protein, UA Negative [facility] Work Phone: [phone] Spec Grav, UA 1.015 [facility] Work Phone: [phone] Urobilinogen, UA 0.2 [facility] Work Phone: [phone] [facility] Work Phone: [phone] MR/BMS.BPon 01-06-2025 MR/BMS.BP Normal [facility] MR/BMS.BPon 01-02-2025 MR/BMS.BP Normal [facility] PROTEIN, TOTAL W/CREAT, RAND OM URINEon 01-02-2025 Creatinine (U) [Mass/Vol] 97 mg/dL Normal 20-275 [facility] Comment on above: Performed By: #### 1 715 #### [facility] [place] [address] Pre Planning Advisor: Salvador Swanson MD Protein (U) [Mass/Vol] 27 mg/dL High 5-24 [facility] Comment on above: Performed By: #### 1 715 #### [facility] [place] [address] Pre Planning Advisor: Salvador Swanson MD PROTEIN/CREATININE RATIO 278 mg/g creat High 24-184 [facility] Comment on above: Performed By: #### 1 715 #### [facility] [place] [address] Pre Planning Advisor: Salvador Swanson MD PROTEIN/CREATININE RATIO 0.278 mg/mg creat High 0.024-0.184 [facility] Comment on above: Performed By: #### 1 715 #### [facility] [place] [id number] Pre Planning Advisor: Salvador Swanson MD Glucose Test strip manual (B ld) [Mass/Vol]on 01-01-2025 Glucose [Mass/Vol] 206 mg/dL High 74 - 99 mg/dL [facility] Interpretation and review of laboratory results Abnormal [facility] Glucose [Mass/Vol] 206 mg/dL High 74-99 [facility] Comment on above: Performed By: #### 5 8410-2 #### QUIN Simon ([id number]) [facility] ([facility]) [address] [place] [address] US OB FOLLOW UP TRANSABDOMIN AL APPROACHon [...] view: limited by maternal body habitus Normal [facility] US for pregnancyon 5 Interpreted by: Carline Pollack Indication ======== Follow [...] (BMI > 40) History ====== General History Zmxwlx062 cm Height (ft)5 ft Height (in)4 in Previous Outcomes Fqshtyo23 Para5 Children born living ?37w1 Pregnancies delivered at term (T)1 Pregnancies delivered (P)4 Abortions (A)9 Living children (L)5 Children born living <37w4 Miscarriages9 Other:Vaginal Delivery Maternal Assessment Pluxai601 cm Height (ft)5 ft Height (in)4 in Aghvhk781 kg Weight (lb)285 lb BMI48.92 kg/m ========= [...] Suboptimal view: limited by maternal body habitus [facility] Work Phone: Radiology Study observation (narrative) [facility] Work Phone: US for pregnancyOrdered By: Carline Pollack on 01-01-2025 [facility] Work Phone: Glucose Test strip manual (B ld) [Mass/Vol]on 12-25-2024 Glucose [Mass/Vol] 166 mg/dL High 74 - 99 mg/dL [facility] Interpretation and review of laboratory results Abnormal [facility] Glucose [Mass/Vol] 166 mg/dL High 74-99 [facility] Comment on above: Performed By: #### 5 8410-2 #### QUIN Simon ([id number]) [facility] ([facility]) [address] [place] [address] Glucose [Mass/Vol] 148 mg/dL High 74 - 99 mg/dL [facility] Interpretation and review of laboratory results Abnormal [facility] Glucose [Mass/Vol] 148 mg/dL High 74-99 [facility] Comment on above: Performed By: #### 5 8410-2 #### QUIN Simon ([id number]) [facility] ([facility]) [address] [place] [address]2420 Glucose [Mass/Vol] 159 mg/dL High 74 - 99 mg/dL [facility] Interpretation and review of laboratory results Abnormal [facility] Glucose [Mass/Vol] 159 mg/dL High 74-99 [facility] Comment on above: Performed By: #### 2 341-6 #### QUIN Simon ([id number]) [facility] ([facility]) [address] [place] [address] 37132 Blood type and Indirect anti body screen panel (Bld)on 12-24-2024 ABO group Nom (Bld) O [facility] Blood group antibody screen Ql Negative [facility] D Ag Ql (Bld) Positive [facility] Glucose Test strip manual (B ld) [Mass/Vol]on 12-24-2024 Glucose [Mass/Vol] 132 mg/dL High 74 - 99 mg/dL [facility] Interpretation and review of laboratory results Abnormal [facility] Glucose [Mass/Vol] 132 mg/dL High 74-99 [facility] Comment on above: Performed By: #### 2 341-6 #### QUIN Simon ([id number]) [facility] ([facility]) [address] [place] [address] 51016 Glucose [Mass/Vol] 160 mg/dL High 74 - 99 mg/dL [facility] Interpretation and review of laboratory results Abnormal [facility] Glucose [Mass/Vol] 160 mg/dL High 74-99 [facility] Comment on above: Performed By: #### 2 341-6 #### QUIN Simon ([id number]) [facility] ([facility]) [address] [place] [address]506 Glucose [Mass/Vol] 139 mg/dL High 74 - 99 mg/dL [facility] Interpretation and review of laboratory results Abnormal [facility] Glucose [Mass/Vol] 139 mg/dL High 74-99 [facility] Comment on above: Performed By: #### 2 341-6 #### QUIN Simon ([id number]) [facility] ([facility]) [address] [place] [address] 76022 Glucose [Mass/Vol] 153 mg/dL High 74 - 99 mg/dL [facility] Interpretation and review of laboratory results Abnormal [facility] Glucose [Mass/Vol] 153 mg/dL High 74-99 [facility] Comment on above: Performed By: #### 2 341-6 #### QUIN Simon ([id number]) [facility] ([facility]) [address] [place] [address] 62153 Glucose [Mass/Vol] 164 mg/dL High 74 - 99 mg/dL [facility] Interpretation and review of laboratory results Abnormal [facility] Glucose [Mass/Vol] 164 mg/dL High 74-99 [facility] Comment on above: Performed By: #### 2 341-6 #### QUIN Simon ([id number]) [facility] ([facility]) [address] [place] [address] US OB DETAIL ANATOMYon 12-24-2024 US OB DETAIL ANATOMY Interpreted by: Earl [place] [...] EFW (oz) 15 oz EFW by: Hadlock (CRT-BZ-LK-FL) Extended Canoe Builder 6.7 mm Head / Face / Neck [...] Normal LVOT view: Normal 3-vessel view: Normal 7-jgyauf-iakkjwt view: Normal Heart / Thorax Cardiac axis: [...] Transabdominal ultrasound examination. View: Poor view Normal [facility] US for pregnancyon Interpreted by: Earl Jin Indication ======== Third [...] EFW (oz) 15 oz EFW by: Hadlock (PXR-VX-VH-FL) Extended Canoe Builder 6.7 mm Head / Face / Neck [...] Normal LVOT view: Normal 3-vessel view: Normal 9-idcylj-fztoqle view: Normal Heart / Thorax Cardiac axis: [...] (BMI > 40) History ====== General History Btllqw701 cm Height (ft)5 ft Height (in)4 in Previous Outcomes Onmjjnb28 Para5 Children born living ?37w1 Pregnancies delivered at term (T)1 Pregnancies delivered (P)4 Abortions (A)9 Living children (L)5 Children born living <37w4 Miscarriages9 Other:Vaginal Delivery Maternal Assessment Vmmtgf154 cm Height (ft)5 ft Height (in)4 in Diegdv319 kg Weight (lb)285 lb BMI48.92 kg/m ========= Schilling . Number of fetuses: 1 Dating ====== Cycle:LMP date not known [place] by prior qyypuiibnr07 w + 2 d [place] by prior [...] 74% Hadlock Femur46.3 mm25w 3d 39% Hadlock Jgpozmh25.1 mm 45% Chitty HC / AC1.13 OCM575 g25w 6d 74% Hadlock EFW (lb)1 lb EFW (oz)15 oz EFW by:Hadlock (WIY-IE-CE-FL) Extended Vp6.7 mm Head / Face / Neck Cephalic index0.78 48% Nicolaides Extremities / Bony Struc FL / BPD0.69 FL / HC0.19 FL / AC0.21 Other Structures TJX566 bpm Anatomy Cranium:Normal Lateral ventricles:Normal Choroid plexus:Normal Midline falx:Normal Cavum septi pellucidi:Normal Cerebellum:Normal Cisterna magna:Normal Head / Neck Thalami:Normal Lips:Normal Profile:Normal Nose:Normal 4-chamber view:Normal RVOT view:Normal LVOT view:Normal 3-vessel view:Normal 1-osphym-zpcbexv view:Normal Heart / Thorax Cardiac axis:Normal Diaphragm:Normal [...] ====== Transabdominal ultrasound examination. View: Poor view [facility] Work Phone: Radiology Study observation (narrative) [facility] Work Phone: US for pregnancyOrdered By: Earl Colorado on 12-24-2024 [facility] Work Phone: Beta hydroxybutyrate [Mass o r moles/Vol]on 12-23-2024 Beta hydroxybutyrate [Moles/Vol] 0.11 mmol/L 0.02 - 0.27 mmol/L [facility] The beta-hydroxybuty rate test performance characteristics have been validated by [facility]. This test has not been approved by the FDA; however such approval is not necessary. [facility] Beta hydroxybutyrate [Moles/Vol] 0.11 mmol/L Normal 0.02-0.27 [facility] Comment on above: Order Comment: The b eta-hydroxybutyrate test performance characteristics have been validated by [facility]. This test has not been approved by the FDA; however such approval is not necessary. Performed By: #### 3 5255-9 #### QUIN Simon ([id number]) [facility] ([facility]) [address] [place] [address] 53339 Blood type and Indirect anti body screen panel (Bld)on 12-23-2024 ABO group Nom (Bld) O Normal [facility] Comment on above: Performed By: #### 2 341-6 #### QUIN Simon ([id number]) [facility] ([facility]) [address] [place] [address] 33995 Blood group antibody screen Ql Negative [facility] Comment on above: Performed By: #### 2 341-6 #### QUIN Simon ([id number]) [facility] ([facility]) [address] [place] [address] 52790 D Ag Ql (Bld) Positive Normal [facility] Comment on above: Performed By: #### 2 341-6 #### QUIN Simon ([id number]) [facility] ([facility]) [address] [place] [address] CBC panel Auto (Bld)on 12-23 Erythrocyte distribution width (RBC) [Ratio] 13.3 % 11.5 - 14.5 % [facility] Hematocrit (Bld) [Volume fraction] 35.7 % Low 36.0 - 46.0 % [facility] Hemoglobin (Bld) [Mass/Vol] 12.1 g/dL 12.0 - 16.0 g/dL [facility] MCH (RBC) [Entitic mass] 29.7 pg 26.0 - 34.0 pg [facility] MCHC (RBC) [Mass/Vol] 33.9 g/dL 32.0 - 36.0 g/dL [facility] MCV (RBC) [Entitic vol] 88 fL 80 - 100 fL [facility] Nucleated RBC/100 WBC (Bld) [Ratio] 0 % [facility] Platelets (Bld) [#/Vol] 207 10*3/uL [facility] RBC (Bld) [#/Vol] 4.08 10*6/uL [facility] WBC (Bld) [#/Vol] 14.6 10*3/uL High [facility] Erythrocyte distribution width (RBC) [Ratio] 13.3 % Normal 11.5-14.5 [facility] Comment on above: Performed By: #### 5 8410-2 #### QUIN Simon ([id number]) [facility] ([facility]) [address] [place] [address] Hematocrit (Bld) [Volume fraction] 35.7 % Low 36.0-46.0 [facility] Comment on above: Performed By: #### 5 8410-2 #### QUIN Simon ([id number]) [facility] ([facility]) [address] [place] [address] Hemoglobin (Bld) [Mass/Vol] 12.1 g/dL Normal 12.0-16.0 [facility] Comment on above: Performed By: #### 5 8410-2 #### QUIN Simon ([id number]) [facility] ([facility]) [address] [place] [address] 92627 MCH (RBC) [Entitic mass] 29.7 pg Normal 26.0-34.0 [facility] Comment on above: Performed By: #### 5 8410-2 #### QUIN Simon ([id number]) [facility] ([facility]) [address] [place] [address] 44851 MCHC (RBC) [Mass/Vol] 33.9 g/dL Normal 32.0-36.0 [place] Comment on above: Performed By: #### 5 8410-2 #### QUIN Simon ([id number]) [facility] ([facility]) [address] [place] [address] 71158 MCV (RBC) [Entitic vol] 88 fL Normal 80-100 [facility] Comment on above: Performed By: #### 5 8410-2 #### QUIN Simon ([id number]) [facility] ([facility]) [address] [place] [address] 87531 Nucleated RBC/100 WBC (Bld) [Ratio] 0.0 /100 WBCs Normal 0.0-0.0 [facility] Comment on above: Performed By: #### 5 8410-2 #### QUIN Simon ([id number]) [facility] ([facility]) [address] [place] [address] 34382 Platelets (Bld) [#/Vol] 207 x10*3/uL Normal 150-450 [facility] Comment on above: Performed By: #### 5 8410-2 #### QUIN Simon ([id number]) [facility] ([facility]) [address] [place] [address] 58252 RBC (Bld) [#/Vol] 4.08 x10*6/uL Normal 4.00-5.20 [facility] Comment on above: Performed By: #### 5 8410-2 #### QUIN Simon ([id number]) [facility] ([facility]) [address] [place] [address] WBC (Bld) [#/Vol] 14.6 x10*3/uL High 4.4-11.3 [facility] Comment on above: Performed By: #### 5 8410-2 #### QUIN Simon ([id number]) [facility] ([facility]) [address] [place] [address] Comprehensive metabolic 2000 panelon 12-23-2024 Albumin BCP dye [Mass/Vol] 3.5 g/dL 3.4 - 5.0 g/dL [facility] ALP [Catalytic activity/Vol] 75 U/L 33 - 110 U/L [facility] ALT With P-5'-P [Catalytic activity/Vol] 5 U/L Low 7 - 45 U/L [facility] Comment on above: Patients treated wit h Sulfasalazine may generate falsely decreased results for ALT. Anion gap [Moles/Vol] 17 mmol/L 10 - 2 0 mmol/L [facility] AST With P-5'-P [Catalytic activity/Vol] 9 U/L 9 - 39 U/L [facility] Bilirubin [Mass/Vol] 0.4 mg/dL 0.0 - 1 .2 mg/dL [facility] Calcium [Mass/Vol] 9.1 mg/dL 8.6 - 10. 6 mg/dL [facility] Chloride [Moles/Vol] 103 mmol/L 98 - 10 7 mmol/L [facility] CO2 [Moles/Vol] 17 mmol/L Low 21 - 32 mmol/L [facility] Creatinine [Mass/Vol] 0.45 mg/dL Low 0.50 - 1.05 mg/dL [facility] eGFR - PINF [facility] Comment on above: Calculations of zoya mated GFR are performed using the 2020 CKD-EPI Study Refit equation without the race variable for the IDMS-Traceable creatinine methods. https://jasn.asnjournals.org/content//ASN.144584 4084 Glucose [Mass/Vol] 234 mg/dL High 74 - 99 mg/dL [facility] Interpretation and review of laboratory results Abnormal [facility] Potassium [Moles/Vol] 3.8 mmol/L 3.5 - 5.3 mmol/L [facility] Protein [Mass/Vol] 6.5 g/dL 6.4 - 8.2 g/dL [facility] Sodium [Moles/Vol] 133 mmol/L Low 136 - 145 mmol/L [facility] Urea nitrogen [Mass/Vol] 5 mg/dL Low 6 - 23 mg/dL [facility] Albumin BCP dye [Mass/Vol] 3.5 g/dL Normal 3.4-5.0 [facility] Comment on above: Performed By: #### 2 4323-8 #### QUIN Simon ([id number]) [facility] ([facility]) [address] [place] [address] 43213 ALP [Catalytic activity/Vol] 75 U/L Normal 33-110 [facility] Comment on above: Performed By: #### 2 4323-8 #### QUIN Simon ([id number]) [facility] ([facility]) [address] [place] [address] 75488 ALT With P-5'-P [Catalytic activity/Vol] 5 U/L Low 7-45 [facility] Comment on above: Result Comment: Nguyen ents treated with Sulfasalazine may generate falsely decreased results for ALT. Performed By: #### 2 4323-8 #### QUIN Simon ([id number]) [facility] ([facility]) [id number] [place] [address] 30392 Anion gap [Moles/Vol] 17 mmol/L Normal 10-20 [place] Comment on above: Performed By: #### 2 4323-8 #### QUIN Simon ([id number]) [facility] ([facility]) [address] [place] [address] 23405 AST With P-5'-P [Catalytic activity/Vol] 9 U/L Normal 9-39 [facility] Comment on above: Performed By: #### 2 4323-8 #### QUIN Simon ([id number]) [facility] ([facility]) [address] [place] [address] Bilirubin [Mass/Vol] 0.4 mg/dL Normal 0.0-1.2 [facility] Comment on above: Performed By: #### 2 4323-8 #### QUIN Simon ([id number]) [facility] ([facility]) [address] [place] [address] Calcium [Mass/Vol] 9.1 mg/dL Normal 8.6-10.6 [facility] Comment on above: Performed By: #### 2 4323-8 #### QUIN Simon ([id number]) [facility] ([facility]) [address] [place] [address] Chloride [Moles/Vol] 103 mmol/L Normal 98-107 [facility] Comment on above: Performed By: #### 2 4323-8 #### QUIN Simon ([id number]) [facility] ([facility]) [address] [place] [address] CO2 [Moles/Vol] 17 mmol/L Low 21-32 [facility] Comment on above: Performed By: #### 2 4323-8 #### QUIN HARTMAN L ([id number]) [facility] ([facility]) [address] [place] [address] Creatinine [Mass/Vol] 0.45 mg/dL Low 0.50-1.05 [place] Comment on above: Performed By: #### 2 4323-8 #### QUIN HARTMAN L ([id number]) [facility] ([facility]) [address] [place] [address] GFR/1.73 sq M.predicted MDRD (S/P/Bld) [Vol rate/Area] mL/min/{1.73_m2} Normal >60 [facility] Comment on above: Result Comment: Calc ulations of estimated GFR are performed using the 2020 CKD-EPI Study Refit equation without the race variable for the IDMS-Traceable creatinine methods. https://jasn.asnjournals.org/content//ASN.891717 2049 Performed By: #### 2 4323-8 #### QUIN Simon ([id number]) [facility] ([facility]) [address] [place] [address] 42890 Glucose [Mass/Vol] 234 mg/dL High 74-99 [facility] Comment on above: Performed By: #### 2 4323-8 #### QUIN Simon ([id number]) [facility] ([facility]) [address] [place] [address] 78415 Potassium [Moles/Vol] 3.8 mmol/L Normal 3.5-5.3 [place] Comment on above: Performed By: #### 2 4323-8 #### QUIN Simon ([id number]) [facility] ([facility]) [address] [place] [address] 51381 Protein [Mass/Vol] 6.5 g/dL Normal 6.4-8.2 [facility] Comment on above: Performed By: #### 2 4323-8 #### QUIN Simon ([id number]) [facility] ([facility]) [address] [place] [address] 95187 Sodium [Moles/Vol] 133 mmol/L Low 136-145 [facility] Comment on above: Performed By: #### 2 4323-8 #### QUIN Simon ([id number]) [facility] ([facility]) [address] [place] [address] 67152 Urea nitrogen [Mass/Vol] 5 mg/dL Low 6-23 [facility] Comment on above: Performed By: #### 2 4323-8 #### QUIN Simon ([id number]) [facility] ([facility]) [address] [place] [address] 83626 Glucose Test strip manual (B ld) [Mass/Vol]on 12-23-2024 Glucose [Mass/Vol] 170 mg/dL High 74 - 99 mg/dL [facility] Interpretation and review of laboratory results Abnormal [facility] Glucose [Mass/Vol] 170 mg/dL High 74-99 [facility] Comment on above: Performed By: #### 2 341-6 #### QUIN Simon ([id number]) [facility] ([facility]) [address] [place] [address] 17756 Glucose [Mass/Vol] 146 mg/dL High 74 - 99 mg/dL [facility] Interpretation and review of laboratory results Abnormal [facility] Glucose [Mass/Vol] 146 mg/dL High 74-99 [facility] Comment on above: Performed By: #### 2 341-6 #### QUIN Simon ([id number]) [facility] ([facility]) [address] [place] [address] 84702 Glucose [Mass/Vol] 301 mg/dL High 74 - 99 mg/dL [facility] Interpretation and review of laboratory results Abnormal [facility] Glucose [Mass/Vol] 301 mg/dL High 74-99 [facility] Comment on above: Performed By: #### 2 341-6 #### QUIN Simon ([id number]) [facility] ([facility]) [address] [place] [address] 86934 Glucose [Mass/Vol] 303 mg/dL High 74 - 99 mg/dL [facility] Interpretation and review of laboratory results Abnormal [facility] Glucose [Mass/Vol] 303 mg/dL High 74-99 [facility] Comment on above: Performed By: #### 2 341-6 #### QUIN Simon ([id number]) [facility] ([facility]) [address] [place] [address] 87200 HbA1c (Bld) [Mass fraction]o n 12-23-2024 Average glucose Estimated from glycated hemoglobin (Bld) [Mass/Vol] 140 mg/dL Not Established [facility] Diagnosis of Diabetes-Adults Non-Diabetic: < or = 5.6% Increased risk for developing diabetes: 5.7-6.4% Diagnostic of diabetes: > or = 6.5% [facility] Average glucose Estimated from glycated hemoglobin (Bld) [Mass/Vol] 140 mg/dL Normal Not Established [facility] Comment on above: Order Comment: Diagn osis of Diabetes-Adults Non-Diabetic: < or = 5.6% Increased risk for developing diabetes: 5.7-6.4% Diagnostic of diabetes: > or = 6.5% Performed By: #### 4 548-4 #### QUIN Simon ([id number]) [facility] ([facility]) [address] [place] [address] Hemoglobin A1con 12-23-2024 HbA1c (Bld) [Mass fraction] 6.5 % High See comment [facility] Hemoglobin A1c/Hemoglobin.to perico 12-23-2024 HbA1c (Bld) [Mass fraction] 6.5 % High See comment [facility] Comment on above: Order Comment: Diagn osis of Diabetes-Adults Non-Diabetic: < or = 5.6% Increased risk for developing diabetes: 5.7-6.4% Diagnostic of diabetes: > or = 6.5% Performed By: #### 4 548-4 #### QUIN Simon ([id number]) [facility] ([facility]) [address] [place] [address] Lactate Dehydrogenaseon 12-06 LDH Lactate to pyruvate reaction [Catalytic activity/Vol] 152 U/L 84 - 246 U/L [facility] Lactate dehydrogenaseon 12-06 LDH Lactate to pyruvate reaction [Catalytic activity/Vol] 152 U/L Normal 84-246 [facility] Comment on above: Performed By: #### 1 4804-9 #### QUIN Simon ([id number]) [facility] ([facility]) [address] [place], [place] [id number] No Panel Informationon 12-23 Interpretation and review of laboratory results Normal [facility] Interpretation and review of laboratory results Abnormal [facility] POCT UA (nonautomated) alphonse castelan resultedon 12-23-2024 Appearance (U) Clear Clear [facility] Work Phone: [phone] Glucose Test strip (U) [Mass/Vol] 500 (3+) Abnormal NEGATIVE mg/dl [facility] Work Phone: [phone] Hemoglobin Ql (U) Negative NEGATIVE [facility] Work Phone: [phone] Interpretation and review of laboratory results Abnormal [facility] Work Phone: Leukocyte esterase Test strip Ql (U) Negative NEGATIVE [facility] Work Phone: Nitrite Ql (U) Negative NEGATIVE [facility] Work Phone: )[phone] pH (U) 5.5 [pH] No Reference Range Established [facility] Work Phone: )[phone] POC Bilirubin, Urine Negative NEGATIVE [facility] Work Phone: [phone] POC Color, Urine Yellow Straw, Yellow, Light-Yellow [facility] Work Phone: [phone] POC Ketones, Urine Negative NEGATIVE mg/dl [facility] Work Phone: [phone] POC Protein, Urine 15 (1+) Abnormal NEGATIVE mg/dl [facility] Work Phone: [phone] POC Specific [place], Urine 1.025 1.005 - 1.035 [facility] Work Phone: [phone] Comment on above: 1.030, but not an op tion POC Urobilinogen, Urine 0.2 0.2, 1.0 EU/DL [facility] Work Phone: [phone] [facility] Work Phone: Proteinon 12-23-2024 Protein Qn (U) 8 mg/dL Normal 5-24 [facility] Comment on above: Performed By: #### 2 7298-9 #### QUIN Simon ([id number]) [facility] ([facility]) [address] [place] [address] Protein Qn (U)on 02-18-2025 Creatinine (U) [Mass/Vol] 30.1 mg/dL 20.0 - 320.0 mg/dL [facility] Interpretation and review of laboratory results Abnormal [facility] Protein/Creatinine (U) [Mass ratio] 0.27 mg/g High [facility] Creatinine (U) [Mass/Vol] 30.1 mg/dL Normal 20.0-320.0 [facility] Comment on above: Performed By: #### 2 7298-9 #### QUIN Simon ([id number]) [facility] ([facility]) [address] [place] [address] Protein/Creatinine (U) [Mass ratio] 0.27 mg/mg Creat High 0.00-0.17 [facility] Comment on above: Performed By: #### 2 7298-9 #### QUIN Simon ([id number]) [facility] ([facility]) [address] [place] [address] Protein, Urine Randomon 12-06 Protein Qn (U) 8 mg/dL 5 - 24 mg/dL [facility] Syphilis Screen with ReflexO rdered By: Naya Khan on 12-23-2024 T. pallidum IgG+IgM IA Ql (S) Non-Reactive Nonreactive [facility] Comment on above: No significant level of Treponema pallidum antibody detected. Repeat testing in 2 to 4 weeks may be considered if early infection or incubating syphilis infection is suspected. T. pallidum IgG+IgM IA Ql (S )Ordered By: Naya Khan on 12-23-2024 Interpretation and review of laboratory results Normal [facility] Treponema pallidum Ab.IgG+Ig Mon 12-23-2024 T. pallidum IgG+IgM IA Ql (S) Non-Reactive Normal Nonreactive [facility] Comment on above: Order Comment: This test is for Syphilis screening, for Syphilis monitoring order RPR with Titer, Syphilis Monitoring Result Comment: No s ignificant level of Treponema pallidum antibody detected. Repeat testing in 2 to 4 weeks may be considered if early infection or incubating syphilis infection is suspected. Performed By: #### 2 341-6 #### QUIN Simon ([id number]) [facility] ([facility]) [address] [place] [address] 66849 Urateon 12-23-2024 Urate [Mass/Vol] 2.3 mg/dL Normal 2.3-6.7 [facility] Comment on above: Result Comment: Jessica puncture immediately after or during the administration of Metamizole may lead to falsely low results. Testing should be performed immediately prior to Metamizole dosing. Performed By: #### 3 084-1 #### QUIN Simon ([id number]) [facility] ([facility]) [address] [place] [address] 43086 Urate [Mass/Vol]on Interpretation and review of laboratory results Normal [facility] Uric Acidon 12-23-2024 Urate [Mass/Vol] 2.3 mg/dL 2.3 - 6.7 mg/dL [facility] Comment on above: Venipuncture immedia tely after or during the administration of Metamizole may lead to falsely low results. Testing should be performed immediately prior to Metamizole dosing. Urinalysis macro (dipstick) panel (U)on 12-23-2024 Appearance (Body fld) [facility] Work [facility]: Bilirubin, UA Negative [facility] Work Phone: [phone] Blood, UA Negative [facility] Work Phone: [phone] Clarity, UA Clear [facility] Work Phone: [phone] Color, UA Light-Yellow [facility] Work Phone: [phone] Glucose, UA 3+ [facility] Work Phone: Interpretation and review of laboratory results Abnormal [facility] Work Phone: [phone] Ketones, UA Negative [facility] Work Phone: [phone] Leukocytes, UA Negative [facility] Work Phone: [phone] Nitrite, UA Negative [facility] Work Phone: pH, UA 5.5 [facility] Work Phone: Protein, UA Negative [facility] Work Phone: Spec Grav, UA 1.015 [facility] Work Phone: Urobilinogen, UA 0.2 [facility] Work Phone: [facility] Work Phone: Urine Cultureon 12-19-2024 [facility] Mixed Gram Positive Organisms Mason Count 1000-10,000 MIXC Mixed contaminants. Submit a new specimen if indicated. Normal [facility] Comment on above: Performed By: #### M 100.2200 ####[facility] [address] [place], [address] Process Architect Office Visit Reporton 12-17-2024 Process Architect Office Visit Report Normal [facility] MR/BMS.BPon 12-08-2024 MR/BMS.BP Normal [facility] MR/BMS.BPon 12-03-2024 MR/BMS.BP Normal [facility] Office Visiton 11-25-2024 Follow-up visit [id number] Ari Tinsley 1991 F Date Provider Department Center 11/25/2024 [id number]-[facility] WOM None Chart Close Cosign Required by: Izabel Whipple MD[SUKHI] Family History Problem Relation Age of Onset [...] Alive Paternal Grandmother Alive Level of Service:0500F OR INITIAL CARE VISIT (,) Reason for Visit and Comments: New Patient [542] - C/o baby being low and it hurts to walk Normal [facility] Progress Noteon 11-25-2024 Progress Note Pt states she feels baby moving Normal [facility] Progress Note ----- ----- Attestation signed by Izabel Whipple MD at 12/10/2024 9:56 AM [facility]: This patient was seen in the [...] to discuss PMHX, OB Hx to update [facility] Chart, should decision be made that she need to delivery with HROB/cMFM and care with [facility]. Patient very hesitent to discuss OB [...] is donor, Patient reported getting sperm on [place]/[facility] clinic, obtained two vials, Home insemination, but potential that this could be ex husbands baby Female infants born ([place] [facility], patient declined signing ROR to this hospital [...] then wanting to discuss birthing options at [facility] Facility: labor: -My fix all for labor is 50mg IV benadryl and IV phenergan, because a thow up fit will cause me to go into labor, discussed that althoug (more content not included)... Normal [facility] MR/BMS.BPon 11-21-2024 MR/BMS.BP Normal [facility] Process Architect Office Visit Reporton 11-18-2024 Process Architect Office Visit Report Normal [facility] Basic Metabolic Profile (BMP )on 11-13-2024 BUN/CRE 10.9 RATIO Normal 10-20 [facility] Comment on above: Performed By: #### L 501.5200, L500.2500 ####[facility] [address] [place], [place], [id number] CA,Total 9.1 mg/dL Normal 8.5-10.1 [facility] Comment on above: Performed By: #### L 501.5200, L500.2500 ####[facility] [address] [place], [address] Chloride [Moles/Vol] 109 mmol/L High 98-107 [facility] Comment on above: Performed By: #### L 501.5200, L500.2500 ####[facility] [address] [place], [address] CO2 [Moles/Vol] 24.0 mmol/L Normal 21.0-32.0 [facility] Comment on above: Performed By: #### L 501.5200, L500.2500 ####[facility] [address] [place], [address] Creatinine [Mass/Vol] 0.55 mg/dL Normal 0.55-1.02 [facility] Comment on above: Result Comment: The validity of the calculated GFR GFRAA in patients over70 years has not been determined. Clinical correlation isessential. Performed By: #### L 501.5200, L500.2500 ####[facility] [address] [place], [address] ECRCL 182.69 ml/min Normal [facility] Comment on above: Performed By: #### L 501.5200, L500.2500 ####[facility] [address] [place], [address] EST GFR - AA 162 mL/min Normal >60 [facility] Comment on above: Result Comment: Afri can Tongan GFR Calc Performed By: #### L 501.5200, L500.2500 ####[facility] [address] [place], [address] GAP 4 Low 5-15 [facility] Comment on above: Performed By: #### L 501.5200, L500.2500 ####[facility] [address] [place], [address] GFR/1.73 sq M.predicted among non-blacks MDRD (S/P/Bld) [Vol rate/Area] 134 mL/min/{1.73_m2} Normal >60 [facility] Comment on above: Result Comment: Non- GFR Calc Performed By: #### L 501.5200, L500.2500 ####[facility] [address] [place], [address] Glucose [Mass/Vol] 110 mg/dL High 74-106 [facility] Comment on above: Result Comment: Fast ing Glucose result from 100 to 125 mg/dLsuggests IMPAIRED HOMEOSTASIS per A.D.A. criteria. Performed By: #### L 501.5200, L500.2500 ####[facility] [address] [place], [address] Potassium [Moles/Vol] 3.7 mmol/L Normal 3.5-5.1 [facility] Comment on above: Performed By: #### L 501.5200, L500.2500 ####[facility] [address] [place], [address] Sodium [Moles/Vol] 137 mmol/L Normal 136-145 [facility] Comment on above: Performed By: #### L 501.5200, L500.2500 ####[facility] [address] [place], [address] Urea nitrogen [Mass/Vol] 6 mg/dL Low 7-18 [facility] Comment on above: Performed By: #### L 501.5200, L500.2500 ####[facility] [address] [place], [address] Emergency Department Summary on 11-13-2024 Emergency Department Summary Normal [facility] M100.678on 11-13-2024 M100.678 Pending SARS-CoV-2 (COVID 19) Negative INFLUENZA A Negative INFLUENZA B Negative RSV PCR Negative Normal [facility] Comment on above: Performed By: #### M 100.678, L400.0001 ####[facility] [address] [place], [address] Magnesiumon 11-13-2024 Magnesium [Mass/Vol] 1.8 mg/dL Normal 1.6-2.6 [facility] Comment on above: Performed By: #### L 501.5200, L500.2500 ####[facility] [address] [place], [address] Urinalysis, Completeon 11-13 EPI,SQUAMOUS 0-5 SEEN Normal 5-10 [facility] Comment on above: Order Comment: STARR CTOR TO SPECIFY Performed By: #### M 100.678, L400.0001 ####[facility] [address] [place], [address] BACTERIA 0 SEEN Normal None Seen [facility] Comment on above: Order Comment: STARR CTOR TO SPECIFY Performed By: #### M 100.678, L400.0001 ####[facility] [address] [place], [address] Mucus Ql (Urine sed) 0 SEEN Normal [facility] Comment on above: Order Comment: STARR CTOR TO SPECIFY Performed By: #### M 100.678, L400.0001 ####[facility] [address] [place], [address] RBC 0 SEEN Normal 0-5 [facility] Comment on above: Order Comment: STARR CTOR TO SPECIFY Performed By: #### M 100.678, L400.0001 ####[facility] [address] [place], [address] WBC 0 SEEN Normal 0-5 [facility] Comment on above: Order Comment: [facility] TO SPECIFY Performed By: #### M 100.678, L400.0001 ####[facility] [address] [place], [address] MR/BMS.BPon 10-24-2024 MR/BMS.BP Normal [facility] Process Architect Office Visit Reporton 10-24-2024 Process Architect Office Visit Report Normal [facility] Urgent Care Visit Reporton 1 12-16-2023 Urgent Care Visit Report Normal [facility] Brain/Head without Contrasto n 10-14-2024 Brain/Head without Contrast Normal [facility] Urgent Care Visit Reporton 1 12-14-2023 Urgent Care Visit Report Normal [facility] Hepatitis B Core Ab Totalon 10-11-2024 HEP B CORE,TOT Negative Normal Negative [facility] Comment on above: Result Comment: Perf ormed at: [facility] Center[facility]asa[address] [place], [place] [id number] Director: Waylon Wang PhD, Phone: [phone] Performed By: #### L 3890.6300, L509.8000, L3100.0460, L3890.6100 ####[facility] [address] [place], [address] Hepatitis B Surface Antigeno n 10-10-2024 HEP B Surf Ag Non-Reactive Normal Nonreactive [facility] Comment on above: Performed By: #### L 3890.6300, L509.8000, L3100.0460, L3890.6100 ####[facility] [address] [place], [address] Hepatitis C Antibodyon 10-10 Hepatitis C AB Non-Reactive Normal Nonreactive [facility] Comment on above: Result Comment: Non Reactive: < 0.8 Equivocal: >/= 0.8 to < 1.0 Reactive: >/= 1.0The CDC requires that a reactive/equivocal HCV antibodyresult be sent out for confirmation. HCV Quant by PCRtesting. Performed By: #### L 3890.6300, L509.8000, L3100.0460, L3890.6100 ####[facility] [address] [place], [place], [id number] L509.8000on 10-10-2024 Syphilis Abs Non-Reactive Normal [facility] Comment on above: Performed By: #### L 3890.6300, L509.8000, L3100.0460, L3890.6100 ####[facility] [address] [place], [address] Process Architect Office Visit Reporton 10-10-2024 Process Architect Office Visit Report Normal [facility] Emergency Department Summary on 10-09-2024 Emergency Department Summary Normal [facility] Office Visit Reporton 2023 Office Visit Report Normal [facility] Anticardiolipin IgG, IgMon 1 11-30-2023 ANTICARDIO IgG < 9 Normal 0-14 [facility] Comment on above: Result Comment: Nega tive: <15 Indeterminate: 15 - 20 Low-Med Positive: >20 - 80 High Positive: >80 Performed By: #### L 4500.2000, L3100.8410, L3410.2000, L4500.5000, L4500.0100 ####[facility] [address] [place], [address] Anticardio.IgM < 9 Normal 0-12 [facility] Comment on above: Result Comment: Nega tive: <13 Indeterminate: 13 - 20 Low-Med Positive: >20 - 80 High Positive: >80 Performed By: #### L 4500.2000, L3100.8410, L3410.2000, L4500.5000, L4500.0100 ####[facility] [address] [place], [address] Beta-2 Glycoprot IgG, A, 09-30-2024 B2 GLYCO I IGA <9 Normal 0-25 [facility] Comment on above: Result Comment: Resu lt Units: GPI IgA unitsThe reference interval reflects a 3SD or 99th percentileinterval, which is thought to represent a potentiallyclinically significant result in accordance with theInternational Consensus Statement on the classificationcriteria for definitive antiphospholipid syndrome (APS). JThromb Haem 2006;4:295-306. Performed By: #### L 4500.2000, L3100.8410, L3410.2000, L4500.5000, L4500.0100 ####[facility] [address] [place], [address] B2 GLYCO I IGG <9 Normal 0-20 [facility] Comment on above: Result Comment: Resu lt Units: GPI IgG unitsThe reference interval reflects a 3SD or 99th percentileinterval, which is thought to represent a potentiallyclinically significant result in accordance with theInternational Consensus Statement on the classificationcriteria for definitive antiphospholipid syndrome (APS). JThromb Haem 2006;4:295-306. Performed By: #### L 4500.2000, L3100.8410, L3410.2000, L4500.5000, L4500.0100 ####[facility] [address] [place], [address] B2 GLYCO I IGM <9 Normal 0-32 [facility] Comment on above: Result Comment: Resu lt Units: GPI IgM unitsThe reference interval reflects a 3SD or 99th percentileinterval, which is thought to represent a potentiallyclinically significant result in accordance with theInternational Consensus Statement on the classificationcriteria for definitive antiphospholipid syndrome (APS). JThromb Haem 2006;4:295-306. Performed By: #### L 4500.2000, L3100.8410, L3410.2000, L4500.5000, L4500.0100 ####[facility] [address] [place], [place], [address] Fact V Leiden Mutationon FACTOR V LEIDEN Comment Normal . [facility] Comment on above: Result Comment: Resu lt: c.1601G>A (p.Egc055Cfe) - Not DetectedThis result is not associated with an increased risk for venousthromboembolism. See Additional Clinical Information andComments.Additional Clinical Information:Venous thromboembolism is a multifactorial diseaseinfluenced by genetic, environmental, and circumstantialrisk factors. The c.1601G>A (p. Kwc531Hks) variant in theF5 gene, commonly referred to [...] F2 c.*97G>Avariant and Factor V Leiden (PMID: 32366006). Additionalrisk factors include but are not limited [...] for health careproviders to discuss results at [phone] ([phone]).Test Details:Variant Analyzed: c.1601G>A (p. Tfm670Thu), referred toas Factor V LeidenMethods/Limitations:DNA analysis of [...] was developed and its performance characteristicsdetermined by [employer]. It has not been cleared orapproved by the Food and Drug Administration.References:Carlos S, Rosalia AK, Delonte R, Virgie WW, Nba YAÑEZ; ACProfessional Practice and Guidelines Committee. Addendum:[place] [employer] consensus statement onfactor V Leiden mutation testing. [employer]. 2020Jan 07.doi: 10.1038/[id number]-u. PMID: 75785619.Leah CHAVEZ. Factor V Leiden Thrombophilia. 1998March 18(Updated 2017Nov 08). In: Jarrod MP, Yancy HH, Celso RA,et al., editors. Siobhan(Nain) (Internet). [place]):[facility]; 7258-1486. Availablefrom: https://www.ncbi.nlm.nih.gov/books/ZBA2436/Rodney S, Rosalia AK, Sumit X, Tam B, Dirk EB, Blank P,Marc CS; A[employer]G Laboratory Pompom Maker Committee.Venous thromboembolism laboratory testing (factor V Leidenand factor II c.*97G>A), 2018 update: a technical standardof the [place] [employer] and Genomics(ACMG). [employer]. 2018 Oct;20(12):1200-2304. doi:10.1038/[id number]-r. Epub 2017Aug 09. PMID: 42981139. Performed By: #### L 4500.2000, L3100.8410, L3410.2000, L4500.5000, L4500.0100 ####[facility] [address] [place], [address] Reviewed By Comment Normal . [facility] Comment on above: Result Comment: Tech nical Component performed at [facility] RTPProfessional Component performed by:Deal Pepper of [facility]. Quin Aguila, Ph.D., FACMGDirector, Molecular Hipfdnho[address]909 [facility] Performed By: #### L 4500.2000, L3100.8410, L3410.2000, L4500.5000, L4500.0100 ####[facility] [address] [place], [place], [address] Factor II, DNA Analysison FACTOR II, DNA Comment Normal . [facility] Comment on above: Result Comment: Resu [...] in theF2 gene and a c.1601G>A (p. Xwy262Pay) variant in the F5 gene(commonly referred to as Factor V Leiden) have an approximately 20-fold increased risk for venous thromboembolism. Risks are likely laz even higher in more complex genotype combinations involving theF2 c.*97G>A variant and Factor V Leiden (PMID: 98619040). Additionalrisk factors include but are not limited [...] for health care providers to discussresults at [phone] ([phone]).Test Details:Variant analyzed: c.*97G>A, previously referred to as [id number]/Limitations:DNA analysis of the F2 gene (NM_000506.5) was [...] was developed and its performance characteristics determinedby [employer]. It has not been cleared or approved by the Food and DrugAdministration.References:Carlos Flanagan, Rosalia GUZMAN, Delonte R, Virgie WW, Nba JH; ACMG ProfessionalPractice and Guidelines Committee. Addendum: [place] [employer] consensus statement on factor V Leiden mutationtesting. [employer] Med. 2020Jan 07. doi: 10.1038/[id number]-b.PMID: 35071641.Leah CHAVEZ. Prothrombin Thrombophilia. 2005May 29[Updated 2020Dec 09]. In: Jarrod MP, Yancy HH, Celso RA, et al.,editors. Siobhan(R) [Internet]. [place]): [facility]; 6782-5209. Available from:https://www.ncbi.nlm.nih.gov/books/NMH0720/Rodney Flanagan, Rosalia GUZMAN, Sumit X, Tam B, Dirk EB, Blank P, Marc CS;AC Laboratory Pompom Maker Committee. Venous thromboembolismlaboratory testing (factor V Leiden and factor II c.*97G>A),2018 update: a technical standard of the [place] [employer] MedicalGenetics and Genomics (ACMG). [employer] Med. 2018 Oct;20(12):3077-4971.doi: 10.1038/[id number]-l. Epub 2017Aug 09. PMID: 03726700. Performed By: #### L 4500.1999, L3100.8410, L3410.1999, L4500.5000, L4500.0100 ####[facility] [address] [place], [address] Lupus Anticoagulant Compon 11-30-2023 aPTT Coag (Bld) [Time] 31.7 s Normal 0.0-43.5 [facility] Comment on above: Performed By: #### L 4500.1999, L3100.8410, L3410.2000, L4500.5000, L4500.0100 ####[facility] [address] [place], [address] DILUTE PT (dPT) 35.1 sec Normal 0.0-47.6 [facility] Comment on above: Performed By: #### L 4500.2000, L3100.8410, L3410.2000, L4500.5000, L4500.0100 ####[facility] [address] [place], [address] dPT Conf. Ratio 1.13 Ratio Normal 0.00-1.34 [facility] Comment on above: Performed By: #### L 4500.2000, L3100.8410, L3410.2000, L4500.5000, L4500.0100 ####[facility] [address] [place], [address] DRVVT 33.0 sec Normal 0.0-47.0 [facility] Comment on above: Performed By: #### L 4500.2000, L3100.8410, L3410.2000, L4500.5000, L4500.0100 ####[facility] [address] [place], [address] Interpretation Comment: Normal . [facility] Comment on above: Result Comment: No l upus anticoagulant was detected. Performed By: #### L 4500.2000, L3100.8410, L3410.2000, L4500.5000, L4500.0100 ####[facility] [address] [place], [address] THROMBIN TIME 14.7 sec Normal 0.0-23.0 [facility] Comment on above: Performed By: #### L 4500.2000, L3100.8410, L3410.2000, L4500.5000, L4500.0100 ####[facility] [address] [place], [address] Urine Cultureon 09-27-2024 URC Mixed Gram Positive Organisms Mason Count 11,000-25,000 MIXC Mixed contaminants. Submit a new specimen if indicated. Normal [facility] Comment on above: Performed By: #### M 100.2200 ####[facility] [address] [place], [place], [address] CBC W/Diff, Automatedon 11- PLT EST ADEQUATE Normal ADEQ [facility] Comment on above: Performed By: #### B TS, L100.0100, L900.0098, L509.4005, L3890.6300, L500.4050, L501.9985, L509.8000, L3890.6100, L3890.6005 ####[facility] [address] [place], [address] SMEAR COMMENT SCANNED Normal [facility] Comment on above: Performed By: #### B TS, L100.0100, L900.0098, L509.4005, L3890.6300, L500.4050, L501.9985, L509.8000, L3890.6100, L3890.6005 ####[facility] [address] [place], [place], [address] Comprehensive Metabolic Prof ilon 09-25-2024 Albumin [Mass/Vol] 3.5 g/dL Normal 3.2-5.0 [facility] Comment on above: Performed By: #### B TS, L100.0100, L900.0098, L509.4005, L3890.6300, L500.4050, L501.9985, L509.8000, L3890.6100, L3890.6005 ####[facility] [address] [place], [address] Albumin/Globulin [Mass ratio] 0.9 {ratio} Normal 0.9-2.4 [facility] Comment on above: Performed By: #### B TS, L100.0100, L900.0098, L509.4005, L3890.6300, L500.4050, L501.9985, L509.8000, L3890.6100, L3890.6005 ####[facility] [address] [place], [address] ALK P 67 U/L Normal 45-117 [facility] Comment on above: Performed By: #### B TS, L100.0100, L900.0098, L509.4005, L3890.6300, L500.4050, L501.9985, L509.8000, L3890.6100, L3890.6005 ####[facility] [address] [place], [address] ALT [Catalytic activity/Vol] 21 U/L Normal 13-56 [facility] Comment on above: Performed By: #### B TS, L100.0100, L900.0098, L509.4005, L3890.6300, L500.4050, L501.9985, L509.8000, L3890.6100, L3890.6005 ####[facility] [address] [place], [address] AST [Catalytic activity/Vol] 16 U/L Normal 15-37 [facility] Comment on above: Performed By: #### B TS, L100.0100, L900.0098, L509.4005, L3890.6300, L500.4050, L501.9985, L509.8000, L3890.6100, L3890.6005 ####[facility] [address] [place], [address] Bilirubin [Mass/Vol] 0.70 mg/dL Normal 0.20-1.00 [facility] Comment on above: Result Comment: For patients on eltrombopag therapy, use of Dimension Aneta TBIL is not recommended. Performed By: #### B TS, L100.0100, L900.0098, L509.4005, L3890.6300, L500.4050, L501.9985, L509.8000, L3890.6100, L3890.6005 ####[facility] [address] [place], [address] BUN/CRE 20.0 RATIO Normal 10-20 [facility] Comment on above: Performed By: #### B TS, L100.0100, L900.0098, L509.4005, L3890.6300, L500.4050, L501.9985, L509.8000, L3890.6100, L3890.6005 ####[facility] [address] [place], [address] CA,Total 9.4 mg/dL Normal 8.5-10.1 [facility] Comment on above: Performed By: #### B TS, L100.0100, L900.0098, L509.4005, L3890.6300, L500.4050, L501.9985, L509.8000, L3890.6100, L3890.6005 ####[facility] [address] [place], [address] Chloride [Moles/Vol] 106 mmol/L Normal 98-107 [facility] Comment on above: Performed By: #### B TS, L100.0100, L900.0098, L509.4005, L3890.6300, L500.4050, L501.9985, L509.8000, L3890.6100, L3890.6005 ####[facility] [address] [place], [address] CO2 [Moles/Vol] 23.0 mmol/L Normal 21.0-32.0 [facility] Comment on above: Performed By: #### B TS, L100.0100, L900.0098, L509.4005, L3890.6300, L500.4050, L501.9985, L509.8000, L3890.6100, L3890.6005 ####[facility] [address] [place], [place], [address] Creatinine [Mass/Vol] 0.65 mg/dL Normal 0.55-1.02 [facility] Comment on above: Result Comment: The validity of the calculated GFR GFRAA in patients over70 years has not been determined. Clinical correlation isessential. Performed By: #### B TS, L100.0100, L900.0098, L509.4005, L3890.6300, L500.4050, L501.9985, L509.8000, L3890.6100, L3890.6005 ####[facility] [address] [place], [place], [phone]) EST GFR - AA 134 mL/min Normal >60 [facility] Comment on above: Result Comment: Afri can Tongan GFR Calc Performed By: #### B TS, L100.0100, L900.0098, L509.4005, L3890.6300, L500.4050, L501.9985, L509.8000, L3890.6100, L3890.6005 ####[facility] [address] [place], [address] GAP 7 Normal 5-15 [facility] Comment on above: Performed By: #### B TS, L100.0100, L900.0098, L509.4005, L3890.6300, L500.4050, L501.9985, L509.8000, L3890.6100, L3890.6005 ####[facility] [address] [place], [place], [phone]) GFR/1.73 sq M.predicted among non-blacks MDRD (S/P/Bld) [Vol rate/Area] 111 mL/min/{1.73_m2} Normal >60 [facility] Comment on above: Result Comment: Non- GFR Calc Performed By: #### B TS, L100.0100, L900.0098, L509.4005, L3890.6300, L500.4050, L501.9985, L509.8000, L3890.6100, L3890.6005 ####[facility] [address] [place], [address] Globulin (S) [Mass/Vol] 3.9 g/dL Normal 2.2-4.2 [facility] Comment on above: Performed By: #### B TS, L100.0100, L900.0098, L509.4005, L3890.6300, L500.4050, L501.9985, L509.8000, L3890.6100, L3890.6005 ####[facility] [address] [facility] [place], [address] Glucose [Mass/Vol] 93 mg/dL Normal 74-106 [facility] Comment on above: Performed By: #### B TS, L100.0100, L900.0098, L509.4005, L3890.6300, L500.4050, L501.9985, L509.8000, L3890.6100, L3890.6005 ####[facility] [address] [facility] [place], [address] Potassium [Moles/Vol] 3.2 mmol/L Low 3.5-5.1 [facility] Comment on above: Performed By: #### B TS, L100.0100, L900.0098, L509.4005, L3890.6300, L500.4050, L501.9985, L509.8000, L3890.6100, L3890.6005 ####[facility] [address] [place], [address] Sodium [Moles/Vol] 137 mmol/L Normal 136-145 [facility] Comment on above: Performed By: #### B TS, L100.0100, L900.0098, L509.4005, L3890.6300, L500.4050, L501.9985, L509.8000, L3890.6100, L3890.6005 ####[facility] [address] [place], [address] T PROT 7.4 g/dL Normal 6.4-8.2 [facility] Comment on above: Performed By: #### B TS, L100.0100, L900.0098, L509.4005, L3890.6300, L500.4050, L501.9985, L509.8000, L3890.6100, L3890.6005 ####[facility] [address] [place], [address] Urea nitrogen [Mass/Vol] 13 mg/dL Normal 7-18 [facility] Comment on above: Performed By: #### B TS, L100.0100, L900.0098, L509.4005, L3890.6300, L500.4050, L501.9985, L509.8000, L3890.6100, L3890.6005 ####[facility] [address] [place], [address] HIV - WCHon 09-25-2024 HIV Non-Reactive Normal Nonreactive [facility] Comment on above: Order Comment: Reaso n for Exam: Performed By: #### B TS, L100.0100, L900.0098, L509.4005, L3890.6300, L500.4050, L501.9985, L509.8000, L3890.6100, L3890.6005 ####[facility] [address] [place], [address] Hemoglobin A1con 09-25-2024 HbA1c (Bld) [Mass fraction] 5.4 % Normal 3.8-5.6 [facility] Comment on above: Result Comment: Norm al < 5.7 % Prediabetic 5.7 - 6.4 % Diabetic >or= 6.5 % Please note range changes. Performed By: #### B TS, L100.0100, L900.0098, L509.4005, L3890.6300, L500.4050, L501.9985, L509.8000, L3890.6100, L3890.6005 ####[facility] [address] [place], [address] Hepatitis B Surface Antigeno n 09-25-2024 HEP B Surf Ag Non-Reactive Normal Nonreactive [facility] Comment on above: Order Comment: Reaso n for Exam: Performed By: #### B TS, L100.0100, L900.0098, L509.4005, L3890.6300, L500.4050, L501.9985, L509.8000, L3890.6100, L3890.6005 ####[facility] [address] [place], [address] Hepatitis C Antibodyon 09-25 Hepatitis C AB Non-Reactive Normal Nonreactive [facility] Comment on above: Order Comment: Reaso n for Exam: Result Comment: Non Reactive: < 0.8 Equivocal: >/= 0.8 to < 1.0 Reactive: >/= 1.0The CDC requires that a reactive/equivocal HCV antibodyresult be sent out for confirmation. HCV Quant by PCRtesting. Performed By: #### B TS, L100.0100, L900.0098, L509.4005, L3890.6300, L500.4050, L501.9985, L509.8000, L3890.6100, L3890.6005 ####[facility] [address] [place], [address] L509.8000on 09-25-2024 Syphilis Abs Non-Reactive Normal [facility] Comment on above: Order Comment: Reaso n for Exam: Performed By: #### B TS, L100.0100, L900.0098, L509.4005, L3890.6300, L500.4050, L501.9985, L509.8000, L3890.6100, L3890.6005 ####[facility] [address] [place], [place], [id number] NATERAon 09-25-2024 NATURA SEE SCANNED REPORT Normal [facility] Comment on above: Performed By: #### B TS, L100.0100, L900.0098, L509.4005, L3890.6300, L500.4050, L501.9985, L509.8000, L3890.6100, L3890.6005 ####[facility] [address] [place], [place], [phone] Process Architect Office Visit Reporton 09-25-2024 Process Architect Office Visit Report Normal [facility] Rubella IgGon 09-25-2024 Rubella IgG Reactive Normal Nonreactive [facility] Comment on above: Order Comment: Reaso n for Exam: Result Comment: Anti body Results Interpretation of Immune Status Non Reactive Presumed Non-Immune Equivocal Equivocal Reactive Presumed Immune Performed By: #### B TS, L100.0100, L900.0098, L509.4005, L3890.6300, L500.4050, L501.9985, L509.8000, L3890.6100, L3890.6005 ####[facility] [address] [place], [place], [phone] Type AND Screenon 09-25-2024 Ab SCREEN GEL Negative Normal [facility] Comment on above: Order Comment: PN Performed By: #### B TS, L100.0100, L900.0098, L509.4005, L3890.6300, L500.4050, L501.9985, L509.8000, L3890.6100, L3890.6005 ####[facility] [address] [place], [place], [id number] PAP IG HPV APTIMA 16/18,45on 09-10-2024 ADEQ Comment Normal . [facility] Comment on above: Order Comment: Speci men Comment: [id number] Comment: Source.............CervixSpecimen Comment: Other..............Specimen Comment: No. of containers..01 ThinPrep Vial Result Comment: Sati sfactory for evaluation. Endocervical and/or squamous metaplasticcells (endocervical component) are present. Performed By: #### L 7400.0280 ####[facility] [address] [place], [place], [phone] COMM . Normal . [facility] Comment on above: Order Comment: Speci men Comment: [id number] Comment: Source.............CervixSpecimen Comment: Other..............Specimen Comment: No. of containers..01 ThinPrep Vial Performed By: #### L 7400.0280 ####[facility] [address] [place], [address] COMMENT Comment Normal . [facility] Comment on above: Order Comment: Speci men Comment: [id number] Comment: Source.............CervixSpecimen Comment: Other..............Specimen Comment: No. of containers..01 ThinPrep Vial Result Comment: This liquid based ThinPrep(R) pap test was screened withthe use of an image guided system. Performed By: #### L 7400.0280 ####[facility] [address] [place], [place], [id number] DIAG Comment Normal . [facility] Comment on above: Order Comment: Speci men Comment: [id number] Comment: Source.............CervixSpecimen Comment: Other..............Specimen Comment: No. of containers..01 ThinPrep Vial Result Comment: NEGA TIVE FOR INTRAEPITHELIAL LESION OR MALIGNANCY. Performed By: #### L 7400.0280 ####[facility] [address] [place], [place], [id number] HPV APTIMA, HR Negative Normal Negative [facility] Comment on above: Order Comment: Speci men Comment: [id number] Comment: Source.............CervixSpecimen Comment: Other..............Specimen Comment: No. of containers..01 ThinPrep Vial Result Comment: This nucleic acid amplification test detects fourteen high-risk HPV types (16,18,31,33,35,39,45,51,52,56,58,59,66,68)without differentiation. Performed By: #### L 7400.0280 ####[facility] [address] [place], [address] HPV Ifrah Rfx Comment Normal . [facility] Comment on above: Order Comment: Speci men Comment: [id number] Comment: Source.............CervixSpecimen Comment: Other..............Specimen Comment: No. of containers..01 ThinPrep Vial Result Comment: Crit eria not met, HPV Genotype not performed.Performed at: - [address] [id number] Director: Ene Gray MD, Phone: [phone] at: =[facility] [id number] Director: Ene Gray MD, Phone: [phone] Performed By: #### L 7400.0280 ####[facility] [address] [place], [address] PAPSMR Comment Normal . [facility] Comment on above: Order Comment: Speci men Comment: [id number] Comment: Source.............CervixSpecimen Comment: Other..............Specimen Comment: No. of containers..01 ThinPrep Vial Result Comment: The Pap smear is a screening test designed to aid in thedetection of premalignant and malignant conditions of theuterine cervix. It is not a diagnostic procedure andshould not be used as the sole means of detecting cervicalcancer. Both false-positive and false-negative reports dooccur. Performed By: #### L 7400.0280 ####[facility] [address] [place], [address] PERFORM Comment Normal . [facility] Comment on above: Order Comment: Speci men Comment: [id number] Comment: Source.............CervixSpecimen Comment: Other..............Specimen Comment: No. of containers..01 ThinPrep Vial Result Comment: Nina Bhakta, Level Vial Inspector (ASCP) Performed By: #### L 7400.0280 ####[facility] [address] [place], [place], [phone] Chlamydia/GC JYOTI aptimaon CHLAMY,NUC ACID Negative Normal Negative [facility] Comment on above: Performed By: #### L 501.0900, L7000.1800, M100.2200 ####[facility] [address] [place], [place], [phone] GC BY NUC ACID Negative Normal Negative [facility] Comment on above: Result Comment: Perf ormed at: =G - [facility] [address] [place] [id number] Director: Ene Gray MD, Phone: [phone] Performed By: #### L 501.0900, L7000.1800, M100.2200 ####[facility] [address] [place], [address] Urine Cultureon 09-04-2024 URC Mixed Gram Positive Organisms Mason Count 50,000-80,000 MIXC Mixed contaminants. Submit a new specimen if indicated. Normal [facility] Comment on above: Performed By: #### L 501.0900, L7000.1800, M100.2200 ####[facility] [address] [place], [address] Process Architect Office Visit Reporton 09-02-2024 Process Architect Office Visit Report Normal [facility] Protein+Creatinine Ratio,Uri neon 09-02-2024 PROT:CRE RATIO 162 mg/g CRE Normal 0-200 [facility] Comment on above: Performed By: #### L 501.0900, L7000.1800, M1.0 ####[facility] [address] [place], [address] Protein (U) [Mass/Vol] 15.5 mg/dL High <11.9 [facility] Comment on above: Performed By: #### L 501.0900, L7000.1800, M100.2200 ####[facility] [address] [place], [address] UR CREAT 95.60 mg/dL Normal NO RANGE EST. [facility] Comment on above: Performed By: #### L 501.0900, L7000.1800, M100.2200 ####[facility] [address] [place], [address] Office Visit Reporton 2023 Office Visit Report Normal [facility] Office Visit Reporton 2023 Office Visit Report Normal [facility] Basic Metabolic Profile (BMP )on 08-06-2024 BUN/CRE 10.5 RATIO Normal 10-20 [facility] Comment on above: Performed By: #### L 100.0100, L500.3400, L500.2500, L700.8000 ####[facility] [address] [place], [address] CA,Total 9.3 mg/dL Normal 8.5-10.1 [facility] Comment on above: Performed By: #### L 100.0100, L500.3400, L500.2500, L700.8000 ####[facility] [address] [place], [address] Chloride [Moles/Vol] 109 mmol/L High 98-107 [facility] Comment on above: Performed By: #### L 100.0100, L500.3400, L500.2500, L700.8000 ####[facility] [address] [place], [address] CO2 [Moles/Vol] 26.0 mmol/L Normal 21.0-32.0 [facility] Comment on above: Performed By: #### L 100.0100, L500.3400, L500.2500, L700.8000 ####[facility] [address] [place], [address] Creatinine [Mass/Vol] 0.67 mg/dL Normal 0.55-1.02 [facility] Comment on above: Result Comment: The validity of the calculated GFR GFRAA in patients over70 years has not been determined. Clinical correlation isessential. Performed By: #### L 100.0100, L500.3400, L500.2500, L700.8000 ####[facility] [address] [place], [address] ECRCL 136.76 ml/min Normal [facility] Comment on above: Performed By: #### L 100.0100, L500.3400, L500.2500, L700.8000 ####[facility] [address] [place], [address] EST GFR - AA 130 mL/min Normal >60 [facility] Comment on above: Result Comment: Afri can Tongan GFR Calc Performed By: #### L 100.0100, L500.3400, L500.2500, L700.8000 ####[facility] [address] [place], [address] GAP 4 Low 5-15 [facility] Comment on above: Performed By: #### L 100.0100, L500.3400, L500.2500, L700.8000 ####[facility] [address] [place], [address] GFR/1.73 sq M.predicted among non-blacks MDRD (S/P/Bld) [Vol rate/Area] 107 mL/min/{1.73_m2} Normal >60 [facility] Comment on above: Result Comment: Non- GFR Calc Performed By: #### L 100.0100, L500.3400, L500.2500, L700.8000 ####[facility] [address] [place], [address] Glucose [Mass/Vol] 101 mg/dL Normal 74-106 [facility] Comment on above: Result Comment: Fast ing Glucose result from 100 to 125 mg/dLsuggests IMPAIRED HOMEOSTASIS per A.D.A. criteria. Performed By: #### L 100.0100, L500.3400, L500.2500, L700.8000 ####[facility] [address] [place], [address] Potassium [Moles/Vol] 4.0 mmol/L Normal 3.5-5.1 [facility] Comment on above: Result Comment: Slig ht Hemolysis, Result may be falsely increased. Performed By: #### L 100.0100, L500.3400, L500.2500, L700.8000 ####[facility] [address] [place], [address] Sodium [Moles/Vol] 139 mmol/L Normal 136-145 [facility] Comment on above: Performed By: #### L 100.0100, L500.3400, L500.2500, L700.8000 ####[facility] [address] [place], [address] Urea nitrogen [Mass/Vol] 7 mg/dL Normal 7-18 [facility] Comment on above: Performed By: #### L 100.0100, L500.3400, L500.2500, L700.8000 ####[facility] [address] [place], [address] CBC W/Diff, Automatedon 10-0 2-2023 Absolute Lymph 2.80 X10 3/uL Normal 0.83-4.51 [facility] Comment on above: Performed By: #### L 100.0100, L500.3400, L500.2500, L700.8000 ####[facility] [address] [place], [address] Absolute Neut 6.7 X10 3/uL Normal 2.0-7.7 [facility] Comment on above: Performed By: #### L 100.0100, L500.3400, L500.2500, L700.8000 ####[facility] [address] [place], [address] Basophils/100 WBC (Bld) 0.5 % Normal 0-1 [facility] Comment on above: Performed By: #### L 100.0100, L500.3400, L500.2500, L700.8000 ####[facility] [address] [place], [address] Eosinophils/100 WBC (Bld) 0.0 % Normal 0-5 [facility] Comment on above: Performed By: #### L 100.0100, L500.3400, L500.2500, L700.8000 ####[facility] [address] [place], [address] Erythrocyte distribution width (RBC) [Ratio] 12.9 % Normal 11.6-14.6 [facility] Comment on above: Performed By: #### L 100.0100, L500.3400, L500.2500, L700.8000 ####[facility] [address] [place], [address] Hematocrit (Bld) [Volume fraction] 38.6 % Normal 37-47 [facility] Comment on above: Performed By: #### L 100.0100, L500.3400, L500.2500, L700.8000 ####[facility] [address] [place], [address] Hemoglobin (Bld) [Mass/Vol] 12.6 g/dL Normal 12.0-15.0 [facility] Comment on above: Performed By: #### L 100.0100, L500.3400, L500.2500, L700.8000 ####[facility] [address] [place], [address] IG% 0.500 Normal 0.0-0.9 [facility] Comment on above: Result Comment: IG% - Immature Granulocytes (promyelocytes, myelocytes andmetamyelocytes) > 1% indicates that a LEFT SHIFT is Present. Performed By: #### L 100.0100, L500.3400, L500.2500, L700.8000 ####[facility] [address] [place], [address] Lymphocytes/100 WBC (Bld) 28.0 % Normal 19-41 [facility] Comment on above: Performed By: #### L 100.0100, L500.3400, L500.2500, L700.8000 ####[facility] [address] [place], [address] MCH (RBC) [Entitic mass] 29.4 pg Normal 27.0-32.0 [facility] Comment on above: Performed By: #### L 100.0100, L500.3400, L500.2500, L700.8000 ####[facility] [address] [place], [address] MCHC (RBC) [Mass/Vol] 32.6 g/dL Normal 32-36 [facility] Comment on above: Performed By: #### L 100.0100, L500.3400, L500.2500, L700.8000 ####[facility] [address] [place], [address] MCV (RBC) [Entitic vol] 90.0 fL Normal 81-99 [facility] Comment on above: Performed By: #### L 100.0100, L500.3400, L500.2500, L700.8000 ####[facility] [address] [place], [address] Monocytes/100 WBC (Bld) 4.5 % Normal 0-10 [facility] Comment on above: Performed By: #### L 100.0100, L500.3400, L500.2500, L700.8000 ####[facility] [address] [place], [address] Neutrophils/100 WBC (Bld) 66.5 % Normal 47-70 [facility] Comment on above: Performed By: #### L 100.0100, L500.3400, L500.2500, L700.8000 ####[facility] [address] [place], [address] Nucleated RBC (Bld) [#/Vol] 0 10*3/uL Normal 0-5 [facility] Comment on above: Performed By: #### L 100.0100, L500.3400, L500.2500, L700.8000 ####[facility] [address] [place], [address] Platelet mean volume (Bld) [Entitic vol] 10.6 fL Normal 6.2-12.0 [facility] Comment on above: Performed By: #### L 100.0100, L500.3400, L500.2500, L700.8000 ####[facility] [address] [place], [address] Platelets (Bld) [#/Vol] 298 10*3/uL Normal 150-450 [facility] Comment on above: Performed By: #### L 100.0100, L500.3400, L500.2500, L700.8000 ####[facility] [address] [place], [address] RBC (Bld) [#/Vol] 4.29 10*6/uL Normal 4.2-5.4 [facility] Comment on above: Performed By: #### L 100.0100, L500.3400, L500.2500, L700.8000 ####[facility] [address] [place], [address] RDW SD 41.9 fl Normal 35.1-43.9 [facility] Comment on above: Performed By: #### L 100.0100, L500.3400, L500.2500, L700.8000 ####[facility] [address] [place], [address] WBC (Bld) [#/Vol] 10.0 10*3/uL Normal 4.4-11.0 [facility] Comment on above: Performed By: #### L 100.0100, L500.3400, L500.2500, L700.8000 ####[facility] [address] [place], [address] Emergency Department Summary on 08-06-2024 Emergency Department Summary Normal [facility] Liver Profileon 08-06-2024 Albumin [Mass/Vol] 3.7 g/dL Normal 3.2-5.0 [facility] Comment on above: Performed By: #### L 100.0100, L500.3400, L500.2500, L700.8000 ####[facility] [address] [place], [address] ALK P 62 U/L Normal 45-117 [facility] Comment on above: Performed By: #### L 100.0100, L500.3400, L500.2500, L700.8000 ####[facility] [address] [place], [address] ALT [Catalytic activity/Vol] 20 U/L Normal 13-56 [facility] Comment on above: Performed By: #### L 100.0100, L500.3400, L500.2500, L700.8000 ####[facility] [address] [place], [address] AST [Catalytic activity/Vol] 19 U/L Normal 15-37 [facility] Comment on above: Result Comment: Slig ht Hemolysis, Result may be falsely increased. Performed By: #### L 100.0100, L500.3400, L500.2500, L700.8000 ####[facility] [address] [place], [address] Bilirubin [Mass/Vol] 0.50 mg/dL Normal 0.20-1.00 [facility] Comment on above: Result Comment: For patients on eltrombopag therapy, use of Dimension Aneta TBIL is not recommended. Performed By: #### L 100.0100, L500.3400, L500.2500, L700.8000 ####[facility] [address] [place], [address] Bilirubin.direct [Mass/Vol] 0.15 mg/dL Normal 0.00-0.30 [facility] Comment on above: Performed By: #### L 100.0100, L500.3400, L500.2500, L700.8000 ####[facility] [address] [place], [place], [address] Globulin (S) [Mass/Vol] 3.7 g/dL Normal 2.2-4.2 [facility] Comment on above: Performed By: #### L 100.0100, L500.3400, L500.2500, L700.8000 ####[facility] [address] [place], [address] T PROT 7.4 g/dL Normal 6.4-8.2 [facility] Comment on above: Performed By: #### L 100.0100, L500.3400, L500.2500, L700.8000 ####[facility] [address] [place], [address] Transvaginal w/Preg USon Transvaginal w/Preg US Normal [facility] hCG Titer Quant., Serumon HCG QUANT. 3737 mIU/mL High 1-3 [facility] Comment on above: Result Comment: hCG levels with Gestational AgeGestational Age hCG mIU/mL (IU/L)0.2 - 1 week 5 - 501-2 weeks 50 - 5002-3 weeks 100 - 29962-8 weeks 500 - 371749-6 weeks 1000 - 018691-9 weeks 91304 - 100,0006-8 weeks 11986 - 200,0002-3 months 38694 - 100,000 Performed By: #### L 100.0100, L500.3400, L500.2500, L700.8000 ####[facility] [address] [place], [place], [address] Emergency Department Summary on 06-30-2024 Emergency Department Summary Normal [facility] [id number] 06-11-2024 ABO and Rh group Nom (Bld) Blood group O Rh(D) positive Normal [facility] Comment on above: Performed By: #### L 700.8000, L100.0100, B882- ####[facility] [address] [place], [address] CBC W/Diff, Automatedon 08-0 7-2023 Absolute Lymph 3.77 X10 3/uL Normal 0.83-4.51 [facility] Comment on above: Performed By: #### L 700.8000, L100.0100, B882-1 ####[facility] [address] [place], [address] Absolute Neut 5.2 X10 3/uL Normal 2.0-7.7 [facility] Comment on above: Performed By: #### L 700.8000, L100.0100, B882-1 ####[facility] [address] [place], [address] Basophils/100 WBC (Bld) 0.5 % Normal 0-1 [facility] Comment on above: Performed By: #### L 700.8000, L100.0100, B882-1 ####[facility] [address] [place], [address] Eosinophils/100 WBC (Bld) 2.7 % Normal 0-5 [facility] Comment on above: Performed By: #### L 700.8000, L100.0100, B882-1 ####[facility] [address] [place], [address] Erythrocyte distribution width (RBC) [Ratio] 12.6 % Normal 11.6-14.6 [facility] Comment on above: Performed By: #### L 700.8000, L100.0100, B882-1 ####[facility] [address] [place], [address] Hematocrit (Bld) [Volume fraction] 40.7 % Normal 37-47 [facility] Comment on above: Performed By: #### L 700.8000, L100.0100, B882-1 ####[facility] [address] [place], [address] Hemoglobin (Bld) [Mass/Vol] 13.0 g/dL Normal 12.0-15.0 [facility] Comment on above: Performed By: #### L 700.8000, L100.0100, B882-1 ####[facility] [address] [place], [address] IG% 0.300 Normal 0.0-0.9 [facility] Comment on above: Result Comment: IG% - Immature Granulocytes (promyelocytes, myelocytes andmetamyelocytes) > 1% indicates that a LEFT SHIFT is Present. Performed By: #### L 700.8000, L100.0100, B882-1 ####[facility] [address] [place], [address] Lymphocytes/100 WBC (Bld) 38.2 % Normal 19-41 [facility] Comment on above: Performed By: #### L 700.8000, L100.0100, B882-1 ####[facility] [address] [place], [address] MCH (RBC) [Entitic mass] 28.7 pg Normal 27.0-32.0 [facility] Comment on above: Performed By: #### L 700.8000, L100.0100, B882-1 ####[facility] [address] [place], [address] MCHC (RBC) [Mass/Vol] 31.9 g/dL Low 32-36 [facility] Comment on above: Performed By: #### L 700.8000, L100.0100, B882-1 ####[facility] [address] [place], [address] MCV (RBC) [Entitic vol] 89.8 fL Normal 81-99 [facility] Comment on above: Performed By: #### L 700.8000, L100.0100, B882-1 ####[facility] [address] [place], [address] Monocytes/100 WBC (Bld) 5.6 % Normal 0-10 [facility] Comment on above: Performed By: #### L 700.8000, L100.0100, B882-1 ####[facility] [address] [place], [address] Neutrophils/100 WBC (Bld) 52.7 % Normal 47-70 [facility] Comment on above: Performed By: #### L 700.8000, L100.0100, B882-1 ####[facility] [address] [place], [address] Nucleated RBC (Bld) [#/Vol] 0 10*3/uL Normal 0-5 [facility] Comment on above: Performed By: #### L 700.8000, L100.0100, B882-1 ####[facility] [address] [place], [address] Platelet mean volume (Bld) [Entitic vol] 11.0 fL Normal 6.2-12.0 [facility] Comment on above: Performed By: #### L 700.8000, L100.0100, B882-1 ####[facility] [address] [place], [address] Platelets (Bld) [#/Vol] 204 10*3/uL Normal 150-450 [facility] Comment on above: Performed By: #### L 700.8000, L100.0100, B882-1 ####[facility] [address] [place], [address] RBC (Bld) [#/Vol] 4.53 10*6/uL Normal 4.2-5.4 [facility] Comment on above: Performed By: #### L 700.8000, L100.0100, B882-1 ####[facility] [address] [place], [address] RDW SD 41.5 fl Normal 35.1-43.9 [facility] Comment on above: Performed By: #### L 700.8000, L100.0100, B882-1 ####[facility] [address] [place], [address] WBC (Bld) [#/Vol] 9.9 10*3/uL Normal 4.4-11.0 [facility] Comment on above: Performed By: #### L 700.8000, L100.0100, B882-1 ####[facility] [address] [place], [address] Comprehensive Metabolic Prof ilon 06-11-2024 Albumin [Mass/Vol] 4.1 g/dL Normal 3.2-5.0 [facility] Comment on above: Performed By: #### L 500.4050 ####[facility] [address] [place], [address] Albumin/Globulin [Mass ratio] 1.2 {ratio} Normal 0.9-2.4 [facility] Comment on above: Performed By: #### L 500.4050 ####[facility] [address] [place], [address] ALK P 64 U/L Normal 45-117 [facility] Comment on above: Performed By: #### L 500.4050 ####[facility] [address] [place], [address] ALT [Catalytic activity/Vol] 24 U/L Normal 13-56 [facility] Comment on above: Performed By: #### L 500.4050 ####[facility] [address] [place], [address] AST [Catalytic activity/Vol] 22 U/L Normal 15-37 [facility] Comment on above: Result Comment: Slig ht Hemolysis, Result may be falsely increased. Performed By: #### L 500.4050 ####[facility] [address] [place], [address] Bilirubin [Mass/Vol] 1.00 mg/dL Normal 0.20-1.00 [facility] Comment on above: Result Comment: For patients on eltrombopag therapy, use of Dimension Aneta TBIL is not recommended. Performed By: #### L 500.4050 ####[facility] [address] [place], [address] BUN/CRE 12.0 RATIO Normal 10-20 [facility] Comment on above: Performed By: #### L 500.4050 ####[facility] [address] [place], [address] CA,Total 9.0 mg/dL Normal 8.5-10.1 [facility] Comment on above: Performed By: #### L 500.4050 ####[facility] [address] [place], [address] Chloride [Moles/Vol] 108 mmol/L High 98-107 [facility] Comment on above: Performed By: #### L 500.4050 ####[facility] [address] [place], [address] CO2 [Moles/Vol] 26.0 mmol/L Normal 21.0-32.0 [facility] Comment on above: Performed By: #### L 500.4050 ####[facility] [address] [place], [address] Creatinine [Mass/Vol] 0.66 mg/dL Normal 0.55-1.02 [facility] Comment on above: Result Comment: The validity of the calculated GFR GFRAA in patients over70 years has not been determined. Clinical correlation isessential. Performed By: #### L 500.4050 ####[facility] [address] [place], [address] ECRCL 139.08 ml/min Normal [facility] Comment on above: Performed By: #### L 500.4050 ####[facility] [address] [place], [address] EST GFR - AA 131 mL/min Normal >60 [facility] Comment on above: Result Comment: Afri can Tongan GFR Calc Performed By: #### L 500.4050 ####[facility] [address] [place], [address] GAP 7 Normal 5-15 [facility] Comment on above: Performed By: #### L 500.4050 ####[facility] [address] [place], [address] GFR/1.73 sq M.predicted among non-blacks MDRD (S/P/Bld) [Vol rate/Area] 108 mL/min/{1.73_m2} Normal >60 [facility] Comment on above: Result Comment: Non- GFR Calc Performed By: #### L 500.4050 ####[facility] [address] [place], [address] Globulin (S) [Mass/Vol] 3.5 g/dL Normal 2.2-4.2 [facility] Comment on above: Performed By: #### L 500.4050 ####[facility] [address] [place], [address] Glucose [Mass/Vol] 79 mg/dL Normal 74-106 [facility] Comment on above: Performed By: #### L 500.4050 ####[facility] [address] [place], [address] Potassium [Moles/Vol] 3.9 mmol/L Normal 3.5-5.1 [facility] Comment on above: Result Comment: Slig ht Hemolysis, Result may be falsely increased. Performed By: #### L 500.4050 ####[facility] [address] [place], [address] Sodium [Moles/Vol] 141 mmol/L Normal 136-145 [facility] Comment on above: Performed By: #### L 500.4050 ####[facility] [address] [place], [address] T PROT 7.6 g/dL Normal 6.4-8.2 [facility] Comment on above: Performed By: #### L 500.4050 ####[facility] [address] [place], [address] Urea nitrogen [Mass/Vol] 8 mg/dL Normal 7-18 [facility] Comment on above: Performed By: #### L 500.4050 ####[facility] [address] [place], [address] Emergency Department Summary on 06-11-2024 Emergency Department Summary Normal [facility] ,Serum,hCG Quali.on 06-11-2024 HCG, SERUM QUAL Normal [facility] Comment on above: Result Comment: Blayne ferguson via OM: Ordered Performed By: #### L 700.6800 ####[facility] [address] [place], [address] INTERNAL QC OK? Normal [facility] Comment on above: Result Comment: Blayne ferguson via OM: Ordered Performed By: #### L 700.6800 ####[facility] [address] [place], [address] RECORD KIT LOT# Normal [facility] Comment on above: Result Comment: Blayne ferguson via OM: Ordered Performed By: #### L 700.6800 ####[facility] [address] [place], [address] Urinalysis, Completeon 06-11 EPI,SQUAMOUS 0-5 SEEN Normal 5-10 [facility] Comment on above: Order Comment: CLEAN CATCH Performed By: #### L 400.0001 ####[facility] [address] [place], [address] WBC 0-5 SEEN Normal 0-5 [facility] Comment on above: Order Comment: CLEAN CATCH Performed By: #### L 400.0001 ####[facility] [address] [place], [address] BACTERIA 0 SEEN Normal None Seen [facility] Comment on above: Order Comment: CLEAN CATCH Performed By: #### L 400.0001 ####[facility] [address] [place], [address] Mucus Ql (Urine sed) 0 SEEN Normal [facility] Comment on above: Order Comment: CLEAN CATCH Performed By: #### L 400.0001 ####[facility] [address] [place], [address] RBC 0 SEEN Normal 0-5 [facility] Comment on above: Order Comment: CLEAN CATCH Performed By: #### L 400.0001 ####[facility] [address] [place], [address] hCG Titer Quant., Serumon HCG QUANT. < 1 Normal 1-3 [facility] Comment on above: Result Comment: hCG levels with Gestational AgeGestational Age hCG mIU/mL (IU/L)0.2 - 1 week 5 - 501-2 weeks 50 - 5002-3 weeks 100 - 58164-7 weeks 500 - 554396-1 weeks 1000 - 485654-0 weeks 88964 - 100,0006-8 weeks 02206 - 200,0002-3 months 78982 - 100,000 Performed By: #### L 700.8000, L100.0100, B882-1 ####[facility] [address] [place], [address] Absolute lymphocyte countOrd ered By: Jagjit Ortega on 03-03-2024 Lymphocytes Auto (Unsp spec) [#/Vol] 2.70 10*3/uL 0.83-4.51 [facility] Automated lymphocyte count a s percentage of total leukocytesOrdered By: Jagjit Ortega on 03-03-2024 Lymphocytes/100 WBC Auto (Unsp spec) 30.4 % 19-41 [facility] Basophil percentageOrdered B y: Jagjit Ortega on 03-03-2024 Basophils/100 WBC (Bld) 0.6 % 0-1 [facility] Chloride [Moles/Vol] 111 mmol/L 98-107 [facility] Eosinophils/100 WBC (Bld) 0.0 % 0-5 [facility] Glucose [Mass/Vol] 100 mg/dL 74-106 [facility] Comment on above: Fasting Glucose resu lt from 100 to 125 mg/dL suggests IMPAIRED HOMEOSTASIS per A.D.A. criteria. Hemoglobin (Bld) [Mass/Vol] 13.1 g/dL 12.0-15.0 [facility] Monocytes/100 WBC (Bld) 5.6 % 0-10 [facility] Neutrophils (Bld) [#/Vol] 5.6 10*3/uL 2.0-7.7 [facility] Neutrophils/100 WBC (Bld) 63.2 % 47-70 [facility] Potassium [Moles/Vol] 3.2 mmol/L 3.5-5.1 [facility] Sodium [Moles/Vol] 142 mmol/L 136-145 [facility] WBC (Bld) [#/Vol] 8.9 10*3/uL 4.4-11.0 [facility] Blood platelet adequacy dete ction by light microscopyOrdered By: Jagjit Ortega on 03-03-2024 Platelets LM Ql (Bld) ADEQUATE ADEQ [facility] Determination of erythrocyte mean corpuscular volume (MCV)Ordered By: Jagjit Ortega on 03-03-2024 MCV (RBC) [Entitic vol] 87.9 fL 81-99 [facility] Erythrocyte distribution wid th ratioOrdered By: Jagjit Ortega on 03-03-2024 Erythrocyte distribution width (RBC) [Ratio] 13.0 % 11.6-14.6 [facility] Erythrocyte distribution wid th standard deviationOrdered By: Jagjit Ortega on 03-03-2024 Erythrocyte distribution width (RBC) [Entitic vol] 41.3 fL 35.1-43.9 [facility] Hematocrit Auto (Bld) [Volum e fraction]Ordered By: Jagjit Ortega on 03-03-2024 Hematocrit (Bld) [Volume fraction] 39.4 % 37-47 [facility] Immature granulocytes/100 WB C Auto (Bld)Ordered By: Jagjit Ortega on 03-03-2024 Immature granulocytes/100 WBC (Bld) 0.200 % 0.0-0.9 [facility] Comment on above: IG% - Immature Granu locytes (promyelocytes, myelocytes and metamyelocytes) > 1% indicates that a LEFT SHIFT is Present. Laboratory - Chemistry and C hemistry - challengeOrdered By: Jagjit Ortega on 03-03-2024 CO2 [Moles/Vol] 27.0 mmol/L 21.0-32.0 [facility] Urea nitrogen/Creatinine [Mass ratio] 8.7 mg/mg 10-20 [facility] Laboratory - Hematology and Cell countsOrdered By: Jagjit Ortega on 03-03-2024 MCH (RBC) [Entitic mass] 29.2 pg 27.0-32.0 [facility] MCHC (RBC) [Mass/Vol] 33.2 g/dL 32-36 [facility] Nucleated RBC/100 WBC (Bld) [Ratio] 0 % 0-5 [facility] Platelet mean volume (Bld) [Entitic vol] 11.5 fL 6.2-12.0 [facility] No Panel InformationOrdered By: Jagjit Ortega on 03-03-2024 Estimated GFR (MDRD) Amer 104 mL/min >60 [facility] Comment on above: GFR Calc Estimated GFR (MDRD) Non-Af Amer 86 mL/min >60 [facility] Comment on above: Non- GFR Calc Platelet Count TNP [facility] Comment on above: Test not performedPl [...] 03-03-2024 RBC (Bld) [#/Vol] 4.48 10*6/uL 4.2-5.4 [facility] Serum or plasma calcium omega urement (mass/volume)Ordered By: Jagjit Ortega on 03-03-2024 Calcium [Mass/Vol] 9.0 mg/dL 8.5-10.1 [facility] Serum or plasma creatinine m easurement (mass/volume)Ordered By: Jagjit Ortega on 03-03-2024 Creatinine [Mass/Vol] 0.81 mg/dL 0.55-1.02 [facility] Comment on above: The validity of the calculated GFR & GFRAA in patients over 70 years has not been determined. Clinical correlation is essential. Serum or plasma urea nitroge n measurement (mass/volume)Ordered By: Jagjit Ortega on 03-03-2024 Urea nitrogen [Mass/Vol] 7 mg/dL 7-18 [facility] Thin prep Papanicolaou smear with manual screeningOrdered By: Jagjit Ortega on 03-03-2024 Thin prep Papanicolaou smear with manual screening 4 5-15 [facility] Absolute lymphocyte countOrd ered By: Nito Nur on 02-22-2024 Lymphocytes Auto (Unsp spec) [#/Vol] 3.30 10*3/uL 0.83-4.51 [facility] Automated lymphocyte count a s percentage of total leukocytesOrdered By: Nito Nur on 02-22-2024 Lymphocytes/100 WBC Auto (Unsp spec) 27.5 % 19-41 [facility] Basophil percentageOrdered B y: Nito Nur on 02-22-2024 Basophil percentage 0-5 SEEN /hpf 0-5 [facility] Basophils/100 WBC (Bld) 0.5 % 0-1 [facility] Bilirubin [Mass/Vol] 0.80 mg/dL 0.20-1.00 [facility] Comment on above: For patients on eltr ombopag therapy, use of Dimension Aneta TBIL is not recommended. Chloride [Moles/Vol] 110 mmol/L 98-107 [facility] Eosinophils/100 WBC (Bld) 0.0 % 0-5 [facility] Glucose [Mass/Vol] 85 mg/dL 74-106 [facility] Hemoglobin (Bld) [Mass/Vol] 13.7 g/dL 12.0-15.0 [facility] Monocytes/100 WBC (Bld) 6.2 % 0-10 [facility] Neutrophils (Bld) [#/Vol] 7.9 10*3/uL 2.0-7.7 [facility] Neutrophils/100 WBC (Bld) 65.4 % 47-70 [facility] Potassium [Moles/Vol] 2.9 mmol/L 3.5-5.1 [facility] Protein [Mass/Vol] 8.0 g/dL 6.4-8.2 [facility] Sodium [Moles/Vol] 140 mmol/L 136-145 [facility] WBC (Bld) [#/Vol] 12.0 10*3/uL 4.4-11.0 [facility] Bilirubin Test strip Ql (U)O rdered By: Nito Nur on 02-22-2024 Bilirubin Ql (U) Negative Negative [facility] Determination of erythrocyte mean corpuscular volume (MCV)Ordered By: Nito Nur on 02-22-2024 MCV (RBC) [Entitic vol] 87.2 fL 81-99 [facility] Erythrocyte distribution wid th ratioOrdered By: Nito Nur on 02-22-2024 Erythrocyte distribution width (RBC) [Ratio] 13.0 % 11.6-14.6 [facility] Erythrocyte distribution wid th standard deviationOrdered By: Nito Nur on 02-22-2024 Erythrocyte distribution width (RBC) [Entitic vol] 40.6 fL 35.1-43.9 [facility] Hematocrit Auto (Bld) [Volum e fraction]Ordered By: Nito Nur on 02-22-2024 Hematocrit (Bld) [Volume fraction] 41.4 % 37-47 [facility] Immature granulocytes/100 WB C Auto (Bld)Ordered By: Nito Nur on 02-22-2024 Immature granulocytes/100 WBC (Bld) 0.400 % 0.0-0.9 [facility] Comment on above: IG% - Immature Granu locytes (promyelocytes, myelocytes and metamyelocytes) > 1% indicates that a LEFT SHIFT is Present. Ketones Test strip Ql (U)Ord ered By: Nito Nur on 02-22-2024 Ketones Ql (U) Negative Negative [facility] Laboratory - Chemistry and C hemistry - challengeOrdered By: Nito Nur on 02-22-2024 Albumin/Globulin [Mass ratio] 1.1 {ratio} 0.9-2.4 [facility] ALP [Catalytic activity/Vol] 67 U/L 45-117 [facility] ALT [Catalytic activity/Vol] 19 U/L 13-56 [facility] CO2 [Moles/Vol] 24.0 mmol/L 21.0-32.0 [facility] Globulin (S) [Mass/Vol] 3.9 g/dL 2.2-4.2 [facility] Magnesium [Mass/Vol] 2.1 mg/dL 1.6-2.6 [facility] Urea nitrogen/Creatinine [Mass ratio] 10.5 mg/mg 10-20 [facility] Laboratory - Hematology and Cell countsOrdered By: Nito Nur on 02-22-2024 MCH (RBC) [Entitic mass] 28.8 pg 27.0-32.0 [facility] MCHC (RBC) [Mass/Vol] 33.1 g/dL 32-36 [facility] Nucleated RBC/100 WBC (Bld) [Ratio] 0 % 0-5 [facility] Platelet mean volume (Bld) [Entitic vol] 10.3 fL 6.2-12.0 [facility] Platelets (Bld) [#/Vol] 280 10*3/uL 150-450 [facility] Mucus LM Ql (Urine sed)Order ed By: Nito Nur on 02-22-2024 Mucus Ql (Urine sed) RARE /hpf [facility] Nitrite Test strip Ql (U)Ord ered By: Nito Nur on 02-22-2024 Nitrite Ql (U) Negative Negative [facility] No Panel InformationOrdered By: Nito Nur on 02-22-2024 Urine RBC 0-5 SEEN /hpf 0-5 [facility] Estimated Creatinine Clearance Calc 114.66 ml/min [facility] Estimated GFR (MDRD) Amer 97 mL/min >60 [facility] Comment on above: GFR Calc Estimated GFR (MDRD) Non-Af Amer 81 mL/min >60 [facility] Comment on above: Non- GFR Calc Protein Test strip Ql (U)Ord ered By: Nito Nur on 02-22-2024 Protein Ql (U) 30 mg/dl Negative [facility] RBC Auto (Bld) [#/Vol]Ordere d By: Nito Nur on 02-22-2024 RBC (Bld) [#/Vol] 4.75 10*6/uL 4.2-5.4 [facility] Serum or plasma calcium omega urement (mass/volume)Ordered By: Nito Nur on 02-22-2024 Calcium [Mass/Vol] 9.2 mg/dL 8.5-10.1 [facility] Serum or plasma choriogonado tropin detectionOrdered By: Nito Nur on 02-22-2024 HCG ( test) Ql Negative [facility] Serum or plasma creatinine m easurement (mass/volume)Ordered By: Nito Nur on 02-22-2024 Creatinine [Mass/Vol] 0.86 mg/dL 0.55-1.02 [facility] Comment on above: The validity of the calculated GFR & GFRAA in patients over 70 years has not been determined. Clinical correlation is essential. Serum or plasma urea nitroge n measurement (mass/volume)Ordered By: Nito Nur on 02-22-2024 Urea nitrogen [Mass/Vol] 9 mg/dL 7-18 [facility] Squamous epithelial cells de tection in urine sediment by light microscopyOrdered By: Nito Nur on 02-22-2024 Epithelial cells.squamous LM Ql (Urine sed) 0-5 SEEN /hpf 5-10 [facility] Thin prep Papanicolaou smear with manual screeningOrdered By: Nito Nur on 02-22-2024 Thin prep Papanicolaou smear with manual screening 4.1 g/dL 3.2-5.0 [facility] Thin prep Papanicolaou smear with manual screening 21 U/L 15-37 [facility] Thin prep Papanicolaou smear with manual screening 6 5-15 [facility] Urine blood detectionOrdered By: Nito Nur on 02-22-2024 RBC Ql (U) 10 /ul Negative [facility] Urine clarityOrdered By: Kayla Nur on 02-22-2024 Clarity (U) Clear Clear [facility] Urine color determinationOrd ered By: Nito Nur on 02-22-2024 Color (U) Yellow Yellow [facility] Urine glucose detectionOrder ed By: Nito Nur on 02-22-2024 Glucose Ql (U) Normal mg/dl Normal [facility] Urine leukocyte esterase det ection by dipstickOrdered By: Nito Nur on 02-22-2024 Leukocyte esterase Test strip Ql (U) 100 /ul Negative [facility] Urine pHOrdered By: Nito ramon on 02-22-2024 pH (U) 5.0 [pH] 5.0 - 8.0 [facility] Urine sediment bacteria coun t by microscopy (number/high power field)Ordered By: Nito Nur on 02-22-2024 Bacteria LM.HPF (Urine sed) [#/Area] RARE /hpf None Seen [facility] Urine specific gravity measu rementOrdered By: Nito Nur on 02-22-2024 Specific gravity (U) [Rel density] 1.020 1.002-1.030 [facility] Urine urobilinogen measureme ntOrdered By: Nito Nur on 02-22-2024 Urobilinogen Ql (U) Normal mg/dl Normal [facility] Absolute lymphocyte countOrd ered By: Jose Wynn on 12-05-2023 Lymphocytes Auto (Unsp spec) [#/Vol] 2.78 10*3/uL 0.83-4.51 [facility] Automated lymphocyte count a s percentage of total leukocytesOrdered By: Kseniaus Tianna on 12-05-2023 Lymphocytes/100 WBC Auto (Unsp spec) 34.2 % 19-41 [facility] Basophil percentageOrdered B y: Jose Wynn on 12-05-2023 Basophil percentage 0-5 SEEN /hpf 0-5 [facility] Basophils/100 WBC (Bld) 0.7 % 0-1 [facility] Chloride [Moles/Vol] 112 mmol/L 98-107 [facility] Eosinophils/100 WBC (Bld) 5.8 % 0-5 [facility] Glucose [Mass/Vol] 107 mg/dL 74-106 [facility] Comment on above: Fasting Glucose resu lt from 100 to 125 mg/dL suggests IMPAIRED HOMEOSTASIS per A.D.A. criteria. Hemoglobin (Bld) [Mass/Vol] 12.9 g/dL 12.0-15.0 [facility] Monocytes/100 WBC (Bld) 5.3 % 0-10 [facility] Neutrophils (Bld) [#/Vol] 4.4 10*3/uL 2.0-7.7 [facility] Neutrophils/100 WBC (Bld) 53.8 % 47-70 [facility] Potassium [Moles/Vol] 3.3 mmol/L 3.5-5.1 [facility] Sodium [Moles/Vol] 142 mmol/L 136-145 [facility] WBC (Bld) [#/Vol] 8.1 10*3/uL 4.4-11.0 [facility] Bilirubin Test strip Ql (U)O rdered By: Jose Wynn on 12-05-2023 Bilirubin Ql (U) Negative Negative [facility] Determination of erythrocyte mean corpuscular volume (MCV)Ordered By: Jose Wynn on 12-05-2023 MCV (RBC) [Entitic vol] 86.4 fL 81-99 [facility] Erythrocyte distribution wid th ratioOrdered By: Kearny Tianna on 12-05-2023 Erythrocyte distribution width (RBC) [Ratio] 13.3 % 11.6-14.6 [facility] Erythrocyte distribution wid th standard deviationOrdered By: [facility] on 12-[facility]23 Erythrocyte distribution width (RBC) [Entitic vol] 41.4 fL 35.1-43.9 [facility] Hematocrit Auto (Bld) [Volum e fraction]Ordered By: [facility] on 12-05-2023 Hematocrit (Bld) [Volume fraction] 39.9 % 37-47 [facility] Immature granulocytes/100 WB C Auto (Bld)Ordered By: [facility] on 12-05-2023 Immature granulocytes/100 WBC (Bld) 0.200 % 0.0-0.9 [facility] Comment on above: IG% - Immature Granu locytes (promyelocytes, myelocytes and metamyelocytes) > 1% indicates that a LEFT SHIFT is Present. Ketones Test strip Ql (U)Ord ered By: Jose Wynn on 12-05-2023 Ketones Ql (U) 5 mg/dl Negative [facility] Laboratory - Chemistry and C hemistry - challengeOrdered By: Jose Wynn on 12-05-2023 CO2 [Moles/Vol] 25.0 mmol/L 21.0-32.0 [facility] Urea nitrogen/Creatinine [Mass ratio] 8.3 mg/mg 10-20 [facility] Laboratory - Hematology and Cell countsOrdered By: Jose Wynn on 12-05-2023 MCH (RBC) [Entitic mass] 27.9 pg 27.0-32.0 [facility] MCHC (RBC) [Mass/Vol] 32.3 g/dL 32-36 [facility] Nucleated RBC/100 WBC (Bld) [Ratio] 0 % 0-5 [facility] Platelets (Bld) [#/Vol] 281 10*3/uL 150-450 [facility] Mucus LM Ql (Urine sed)Order ed By: Jose Wynn on 12-05-2023 Mucus Ql (Urine sed) 2+ /hpf [facility] Nitrite Test strip Ql (U)Ord ered By: Jose Wynn on 12-05-2023 Nitrite Ql (U) Negative Negative [facility] No Panel InformationOrdered By: Jose Wynn on 12-05-2023 Urine RBC 0-5 SEEN /hpf 0-5 [facility] Estimated Creatinine Clearance Calc 123.09 ml/min [facility] Estimated GFR (MDRD) Amer 99 mL/min >60 [facility] Comment on above: GFR Calc Estimated GFR (MDRD) Non-Af Amer 82 mL/min >60 [facility] Comment on above: Non- GFR Calc Platelet mean volume Ryan-Ec ker (Bld) [Entitic vol]Ordered By: Jose Wynn on 12-05-2023 Platelet mean volume (Bld) [Entitic vol] 10.3 fL 6.2-12.0 [facility] Protein Test strip Ql (U)Ord ered By: Jose Wynn on 12-05-2023 Protein Ql (U) 30 mg/dl Negative [facility] RBC Auto (Bld) [#/Vol]Ordere d By: Jose Wynn on 12-05-2023 RBC (Bld) [#/Vol] 4.62 10*6/uL 4.2-5.4 [facility] [place] Serum or plasma calcium omega urement (mass/volume)Ordered By: Jose Wynn on 12-05-2023 Calcium [Mass/Vol] 9.1 mg/dL 8.5-10.1 [facility] Serum or plasma choriogonado tropin detectionOrdered By: Jose Wynn on 12-05-2023 HCG ( test) Ql Negative [facility] Serum or plasma creatinine m easurement (mass/volume)Ordered By: Jose Wynn on 12-05-2023 Creatinine [Mass/Vol] 0.84 mg/dL 0.55-1.02 [facility] Comment on above: The validity of the calculated GFR & GFRAA in patients over 70 years has not been determined. Clinical correlation is essential. Serum or plasma urea nitroge n measurement (mass/volume)Ordered By: Jose Wynn on 12-05-2023 Urea nitrogen [Mass/Vol] 7 mg/dL 7-18 [facility] Squamous epithelial cells de tection in urine sediment by light microscopyOrdered By: Jose Wynn on 12-05-2023 Epithelial cells.squamous LM Ql (Urine sed) 5-10 SEEN /hpf 5-10 [facility] Thin prep Papanicolaou smear with manual screeningOrdered By: Jose Wynn on 12-05-2023 Thin prep Papanicolaou smear with manual screening 5 5-15 [facility] Urine blood detectionOrdered By: Jose Wynn on 12-05-2023 RBC Ql (U) 10 /ul Negative [facility] Urine clarityOrdered By: Ksenia Wynn on 12-05-2023 Clarity (U) Cloudy Clear [facility] Urine color determinationOrd ered By: Jose Wynn on 12-05-2023 Color (U) Yellow Yellow [facility] Urine glucose detectionOrder ed By: Jose Wynn on 12-05-2023 Glucose Ql (U) Normal mg/dl Normal [facility] Urine leukocyte esterase det ection by dipstickOrdered By: Jose Wynn on 12-05-2023 Leukocyte esterase Test strip Ql (U) 25 /ul Negative [facility] Urine pHOrdered By: Jose Un gur on 12-05-2023 pH (U) 6.0 [pH] 5.0 - 8.0 [facility] Urine sediment bacteria coun t by microscopy (number/high power field)Ordered By: Jose Tianna on 12-05-2023 Bacteria LM.HPF (Urine sed) [#/Area] 1 /[HPF] None Seen [facility] Urine specific gravity measu rementOrdered By: Jose Tianna on 12-05-2023 Specific gravity (U) [Rel density] 1.020 1.002-1.030 [facility] Urine urobilinogen measureme ntOrdered By: Jose Tianna on 12-05-2023 Urobilinogen Ql (U) 1 mg/dl Normal [facility] [place] Absolute lymphocyte countOrd ered By: Jose Tianna on 11-17-2023 Lymphocytes Auto (Unsp spec) [#/Vol] 2.52 10*3/uL 0.83-4.51 [facility] Basophil percentageOrdered B y: Jose Tianna on 11-17-2023 Basophils/100 WBC (Bld) 0.9 % 0-1 [facility] Bilirubin [Mass/Vol] 0.60 mg/dL 0.20-1.00 [facility] Comment on above: For patients on eltr ombopag therapy, use of Dimension Aneta TBIL is not recommended. Chloride [Moles/Vol] 110 mmol/L 98-107 [facility] Eosinophils/100 WBC (Bld) 0.1 % 0-5 [facility] Glucose [Mass/Vol] 103 mg/dL 74-106 [facility] Comment on above: Fasting Glucose resu lt from 100 to 125 mg/dL suggests IMPAIRED HOMEOSTASIS per A.D.A. criteria. Neutrophils (Bld) [#/Vol] 5.2 10*3/uL 2.0-7.7 [facility] Neutrophils/100 WBC (Bld) 63.4 % 47-70 [facility] Potassium [Moles/Vol] 3.2 mmol/L 3.5-5.1 [facility] Protein [Mass/Vol] 7.9 g/dL 6.4-8.2 [facility] Sodium [Moles/Vol] 141 mmol/L 136-145 [facility] WBC (Bld) [#/Vol] 8.2 10*3/uL 4.4-11.0 [facility] Beta hCG serum qualOrdered B y: Jose Wynn on 11-17-2023 Beta HCG ( test) Ql Negative [facility] Blood erythrocytes count (nu mber/volume)Ordered By: Jose Wynn on 11-17-2023 RBC (Bld) [#/Vol] 4.99 10*6/uL 4.2-5.4 [facility] [place] Blood hemoglobin measurement (mass/volume)Ordered By: Jose Wynn on 11-17-2023 Hemoglobin (Bld) [Mass/Vol] 14.0 g/dL 12.0-15.0 [facility] Blood lymphocytes/100 leukoc ytesOrdered By: Jose Wynn on 11-17-2023 Lymphocytes/100 WBC (Bld) 30.6 % 19-41 [facility] Blood monocytes/100 leukocyt esOrdered By: Jose Wynn on 11-17-2023 Monocytes/100 WBC (Bld) 4.6 % 0-10 [facility] Blood platelet mean volumeOr dered By: Jose Wynn on 11-17-2023 Platelet mean volume (Bld) [Entitic vol] 10.5 fL 6.2-12.0 [facility] Determination of erythrocyte mean corpuscular volume (MCV)Ordered By: Jose Wynn on 11-17-2023 MCV (RBC) [Entitic vol] 86.4 fL 81-99 [facility] Hematocrit Auto (Bld) [Volum e fraction]Ordered By: Jose Wynn on 11-17-2023 Hematocrit (Bld) [Volume fraction] 43.1 % 37-47 [facility] Laboratory - Chemistry and C hemistry - challengeOrdered By: Jose Wynn on 11-17-2023 ALP [Catalytic activity/Vol] 85 U/L 45-117 [facility] ALT [Catalytic activity/Vol] 39 U/L 13-56 [facility] CO2 [Moles/Vol] 25.0 mmol/L 21.0-32.0 [facility] Globulin (S) [Mass/Vol] 4.0 g/dL 2.2-4.2 [facility] Lipase [Catalytic activity/Vol] 26 U/L 13-75 [facility] Comment on above: Please note:LIPASE r evised reference range effective 23. New Lipase methodology. Expected to produce lower values than the previous assay method. NEW Reference Range: 13 - 75 U/L Urea nitrogen/Creatinine [Mass ratio] 8.7 mg/mg 10-20 [facility] Laboratory - Hematology and Cell countsOrdered By: Jose Wynn on 11-17-2023 Erythrocyte distribution width (RBC) [Entitic vol] 42.1 fL 35.1-43.9 [facility] Erythrocyte distribution width (RBC) [Ratio] 13.5 % 11.6-14.6 [facility] Immature granulocytes/100 WBC (Bld) 0.400 % 0.0-0.9 [facility] Comment on above: IG% - Immature Granu locytes (promyelocytes, myelocytes and metamyelocytes) > 1% indicates that a LEFT SHIFT is Present. MCH (RBC) [Entitic mass] 28.1 pg 27.0-32.0 [facility] Nucleated RBC/100 WBC (Bld) [Ratio] 0 % 0-5 [facility] MCHC Auto (RBC) [Mass/Vol]Or dered By: Jose Wynn on 11-17-2023 MCHC (RBC) [Mass/Vol] 32.5 g/dL 32-36 [facility] No Panel InformationOrdered By: Jose Wynn on 11-17-2023 Estimated Creatinine Clearance Calc 116.73 ml/min [facility] Estimated GFR (MDRD) Amer 90 mL/min >60 [facility] Comment on above: GFR Calc Estimated GFR (MDRD) Non-Af Amer 74 mL/min >60 [facility] Comment on above: Non- GFR Calc Ethyl Alcohol Level < 3.0 mg/dL [facility] Comment on above: The serum:whole bloo d ethanol ratio is approximately 1.14and varies slightly with hematocrit. Medical Alcohol reference interval and critical value innon-tolerant individuals; 50 - 100 Impairment 100 Intoxication 100 - 250 Severe Poisoning 250 - 400 Deep/possible fatal coma Platelets bldOrdered By: Ksenia Wynn on 11-17-2023 Platelets (Bld) [#/Vol] 263 10*3/uL 150-450 [facility] Serum or plasma albumin omega urement (mass/volume)Or[facility] By: [facility] on 11-17-2023 Albumin [Mass/Vol] 3.9 g/dL 3.2-5.0 [facility] Serum or plasma albumin/glob ulin mass ratioOrdered By: [facility] on 11-17-2023 Albumin/Globulin [Mass ratio] 1.0 {ratio} 0.9-2.4 [facility] Serum or plasma calcium omega urement (mass/volume)Ordered By: Kearny Michellemigue on 11-17-2023 Calcium [Mass/Vol] 9.6 mg/dL 8.5-10.1 [facility] Serum or plasma creatinine m easurement (mass/volume)Ordered By: [facility] on 11-17-2023 Creatinine [Mass/Vol] 0.92 mg/dL 0.55-1.02 [facility] Comment on above: The validity of the calculated GFR & GFRAA in patients over 70 years has not been determined. Clinical correlation is essential. Serum or plasma urea nitroge n measurement (mass/volume)Ordered By: [facility] on 11-17-2023 Urea nitrogen [Mass/Vol] 8 mg/dL 7-18 [facility] Thin prep Papanicolaou smear with manual screeningOrdered By: [facility] on [facility]23 Thin prep Papanicolaou smear with manual screening 24 U/L 15-37 [facility] Thin prep Papanicolaou smear with manual screening 6 5-15 [facility] Absolute lymphocyte countOrd ered By: Garrett Brooks on 10-25-2023 Lymphocytes Auto (Unsp spec) [#/Vol] 2.95 10*3/uL 0.83-4.51 [facility] Basophil percentageOrdered B y: Garrett Brooks on 10-25-2023 Basophil percentage 0-5 SEEN /hpf 0-5 [facility] Basophils/100 WBC (Bld) 0.6 % 0-1 [facility] Bilirubin [Mass/Vol] 0.70 mg/dL 0.20-1.00 [facility] Comment on above: For patients on eltr ombopag therapy, use of Dimension Aneta TBIL is not recommended. Chloride [Moles/Vol] 108 mmol/L 98-107 [facility] Eosinophils/100 WBC (Bld) 4.8 % 0-5 [facility] Glucose [Mass/Vol] 119 mg/dL 74-106 [facility] Comment on above: Fasting Glucose resu lt from 100 to 125 mg/dL suggests IMPAIRED HOMEOSTASIS per A.D.A. criteria. Neutrophils (Bld) [#/Vol] 4.6 10*3/uL 2.0-7.7 [facility] Neutrophils/100 WBC (Bld) 53.6 % 47-70 [facility] Potassium [Moles/Vol] 3.6 mmol/L 3.5-5.1 [facility] Protein [Mass/Vol] 7.7 g/dL 6.4-8.2 [facility] Sodium [Moles/Vol] 141 mmol/L 136-145 [facility] WBC (Bld) [#/Vol] 8.6 10*3/uL 4.4-11.0 [facility] Beta hCG serum qualOrdered B y: Garrett Brooks on 10-25-2023 Beta HCG ( test) Ql Negative [facility] Bilirubin Test strip Ql (U)O rdered By: Garrett Brooks on 10-25-2023 Bilirubin Ql (U) Negative Negative [facility] Blood erythrocytes count (nu mber/volume)Ordered By: Garrett Brooks on 10-25-2023 RBC (Bld) [#/Vol] 4.69 10*6/uL 4.2-5.4 [facility] [place] Blood hemoglobin measurement (mass/volume)Ordered By: Garrett Brooks on 10-25-2023 Hemoglobin (Bld) [Mass/Vol] 13.1 g/dL 12.0-15.0 [facility] Blood lymphocytes/100 leukoc ytesOrdered By: Garrett Brooks on 10-25-2023 Lymphocytes/100 WBC (Bld) 34.3 % 19-41 [facility] Blood monocytes/100 leukocyt esOrdered By: Garrett Brooks on 10-25-2023 Monocytes/100 WBC (Bld) 6.5 % 0-10 [facility] Blood platelet mean volumeOr dered By: Garrett Brooks on 10-25-2023 Platelet mean volume (Bld) [Entitic vol] 10.2 fL 6.2-12.0 [facility] Determination of erythrocyte mean corpuscular volume (MCV)Ordered By: Garrett Brooks on 10-25-2023 MCV (RBC) [Entitic vol] 87.0 fL 81-99 [facility] Hematocrit Auto (Bld) [Volum e fraction]Ordered By: Garrett Brooks on 10-25-2023 Hematocrit (Bld) [Volume fraction] 40.8 % 37-47 [facility] Ketones Test strip Ql (U)Ord ered By: Garrett Brooks on 10-25-2023 Ketones Ql (U) Negative Negative [facility] Laboratory - Chemistry and C hemistry - challengeOrdered By: Garrett Brooks on 10-25-2023 ALP [Catalytic activity/Vol] 81 U/L 45-117 [facility] ALT [Catalytic activity/Vol] 22 U/L 13-56 [facility] CO2 [Moles/Vol] 26.0 mmol/L 21.0-32.0 [facility] Globulin (S) [Mass/Vol] 4.0 g/dL 2.2-4.2 [facility] Lipase [Catalytic activity/Vol] 22 U/L 13-75 [facility] Comment on above: Please note:LIPASE r evised reference range effective 23. New Lipase methodology. Expected to produce lower values than the previous assay method. NEW Reference Range: 13 - 75 U/L Urea nitrogen/Creatinine [Mass ratio] 7.2 mg/mg 10-20 [facility] Laboratory - Hematology and Cell countsOrdered By: Garrett Brooks on 10-25-2023 Erythrocyte distribution width (RBC) [Entitic vol] 41.5 fL 35.1-43.9 [facility] Erythrocyte distribution width (RBC) [Ratio] 13.3 % 11.6-14.6 [facility] Immature granulocytes/100 WBC (Bld) 0.200 % 0.0-0.9 [facility] Comment on above: IG% - Immature Granu locytes (promyelocytes, myelocytes and metamyelocytes) > 1% indicates that a LEFT SHIFT is Present. MCH (RBC) [Entitic mass] 27.9 pg 27.0-32.0 [facility] Nucleated RBC/100 WBC (Bld) [Ratio] 0 % 0-5 [facility] MCHC Auto (RBC) [Mass/Vol]Or dered By: Garrett Brooks on 10-25-2023 MCHC (RBC) [Mass/Vol] 32.1 g/dL 32-36 [facility] Mucus LM Ql (Urine sed)Order ed By: Garrett Brooks on 10-25-2023 Mucus Ql (Urine sed) 0 SEEN /hpf [facility] Nitrite Test strip Ql (U)Ord ered By: Garrett Brooks on 10-25-2023 Nitrite Ql (U) Negative Negative [facility] No Panel InformationOrdered By: Garrett Brooks on 10-25-2023 Estimated Creatinine Clearance Calc 81.49 ml/min [facility] Estimated GFR (MDRD) Amer 100 mL/min >60 [facility] Comment on above: GFR Calc Estimated GFR (MDRD) Non-Af Amer 82 mL/min >60 [facility] Comment on above: Non- GFR Calc Platelets bldOrdered By: Anirudh Brooks on 10-25-2023 Platelets (Bld) [#/Vol] 257 10*3/uL 150-450 [facility] Protein Test strip Ql (U)Ord ered By: Garrett Brooks on 10-25-2023 Protein Ql (U) 15 mg/dl Negative [facility] Serum or plasma albumin omega urement (mass/volume)Ordered By: Garrett Brooks on 10-25-2023 Albumin [Mass/Vol] 3.7 g/dL 3.2-5.0 [facility] Serum or plasma albumin/glob ulin mass ratioOrdered By: Garrett Brooks on 10-25-2023 Albumin/Globulin [Mass ratio] 0.9 {ratio} 0.9-2.4 [facility] Serum or plasma calcium omega urement (mass/volume)Ordered By: Garrett Brooks on 10-25-2023 Calcium [Mass/Vol] 9.4 mg/dL 8.5-10.1 [facility] Serum or plasma creatinine m easurement (mass/volume)Ordered By: Garrett Brooks on 10-25-2023 Creatinine [Mass/Vol] 0.84 mg/dL 0.55-1.02 [facility] Comment on above: The validity of the calculated GFR & GFRAA in patients over 70 years has not been determined. Clinical correlation is essential. Serum or plasma urea nitroge n measurement (mass/volume)Ordered By: Garrett Brooks on 10-25-2023 Urea nitrogen [Mass/Vol] 6 mg/dL 7-18 [facility] Squamous epithelial cells de tection in urine sediment by light microscopyOrdered By: Garrett Brooks on 10-25-2023 Epithelial cells.squamous LM Ql (Urine sed) 0-5 SEEN /hpf 5-10 [facility] Thin prep Papanicolaou smear with manual screeningOrdered By: Garrett Brooks on 10-25-2023 Thin prep Papanicolaou smear with manual screening 14 U/L 15-37 [facility] Thin prep Papanicolaou smear with manual screening 7 5-15 [facility] Urine blood detectionOrdered By: Garrett Brooks on 10-25-2023 RBC Ql (U) Negative Negative [facility] RBC Ql (U) 0 SEEN /hpf 0-5 [facility] Urine clarityOrdered By: Anirudh Brooks on 10-25-2023 Clarity (U) Clear Clear [facility] Urine color determinationOrd ered By: Garrett Brooks on 10-25-2023 Color (U) Yellow Yellow [facility] Urine glucose detectionOrder ed By: Garrett Brooks on 10-25-2023 Glucose Ql (U) Normal mg/dl Normal [facility] Urine leukocyte esterase det ection by dipstickOrdered By: Garrett Brooks on 10-25-2023 Leukocyte esterase Test strip Ql (U) Negative Negative [facility] Urine pHOrdered By: Garrett montano on 10-25-2023 pH (U) 7.0 [pH] 5.0 - 8.0 [facility] Urine sediment bacteria coun t by microscopy (number/high power field)Ordered By: Garrett Brooks on 10-25-2023 Bacteria LM.HPF (Urine sed) [#/Area] 0 /[HPF] None Seen [facility] Urine specific gravity measu rementOrdered By: Garrett Brooks on 10-25-2023 Specific gravity (U) [Rel density] 1.015 1.002-1.030 [facility] Urobilinogen Auto test strip Ql (U)Ordered By: Garrett Brooks on 10-25-2023 Urobilinogen Ql (U) Normal mg/dl Normal [facility] Absolute lymphocyte countOrd ered By: Agustín Estrada on 09-05-2023 Lymphocytes Auto (Unsp spec) [#/Vol] 3.03 10*3/uL 0.83-4.51 [facility] Basophil percentageOrdered B y: Agustín Estrada on 09-05-2023 Basophil percentage 0-5 SEEN /hpf 0-5 [facility] Basophils/100 WBC (Bld) 0.7 % 0-1 [facility] Bilirubin [Mass/Vol] 0.60 mg/dL 0.20-1.00 [facility] Comment on above: For patients on eltr ombopag therapy, use of Dimension Aneta TBIL is not recommended. Chloride [Moles/Vol] 109 mmol/L 98-107 [facility] Eosinophils/100 WBC (Bld) 0.0 % 0-5 [facility] Glucose [Mass/Vol] 102 mg/dL 74-106 [facility] Comment on above: Fasting Glucose resu lt from 100 to 125 mg/dL suggests IMPAIRED HOMEOSTASIS per A.D.A. criteria. Neutrophils (Bld) [#/Vol] 5.1 10*3/uL 2.0-7.7 [facility] Neutrophils/100 WBC (Bld) 58.4 % 47-70 [facility] Potassium [Moles/Vol] 3.8 mmol/L 3.5-5.1 [facility] Protein [Mass/Vol] 7.7 g/dL 6.4-8.2 [facility] Sodium [Moles/Vol] 138 mmol/L 136-145 [facility] WBC (Bld) [#/Vol] 8.7 10*3/uL 4.4-11.0 [facility] Beta hCG serum qualOrdered B y: Agustín Estrada on 09-05-2023 Beta HCG ( test) Ql Negative [facility] Bilirubin Test strip Ql (U)O rdered By: Agustín Estrada on 09-05-2023 Bilirubin Ql (U) Negative Negative [facility] Blood erythrocytes count (nu mber/volume)Ordered By: Agustín Estrada on 09-05-2023 RBC (Bld) [#/Vol] 4.61 10*6/uL 4.2-5.4 [facility] [place] Blood hemoglobin measurement (mass/volume)Ordered By: Agustín Estrada on 09-05-2023 Hemoglobin (Bld) [Mass/Vol] 12.7 g/dL 12.0-15.0 [facility] Blood lymphocytes/100 leukoc ytesOrdered By: Agustín Estrada on 09-05-2023 Lymphocytes/100 WBC (Bld) 34.9 % 19-41 [facility] Blood monocytes/100 leukocyt esOrdered By: Agustín Estrada on 09-05-2023 Monocytes/100 WBC (Bld) 5.7 % 0-10 [facility] Blood platelet mean volumeOr dered By: Agustín Estrada on 09-05-2023 Platelet mean volume (Bld) [Entitic vol] 9.6 fL 6.2-12.0 [facility] Determination of erythrocyte mean corpuscular volume (MCV)Ordered By: Agustín Estrada on 09-05-2023 MCV (RBC) [Entitic vol] 87.6 fL 81-99 [facility] Hematocrit Auto (Bld) [Volum e fraction]Ordered By: Agustín Estrada on 09-05-2023 Hematocrit (Bld) [Volume fraction] 40.4 % 37-47 [facility] Ketones Test strip Ql (U)Ord ered By: Agustín Estrada on 09-05-2023 Ketones Ql (U) Negative Negative [facility] Laboratory - Chemistry and C hemistry - challengeOrdered By: Agustín Estrada on 09-05-2023 ALP [Catalytic activity/Vol] 77 U/L 45-117 [facility] ALT [Catalytic activity/Vol] 21 U/L 13-56 [facility] CO2 [Moles/Vol] 24.0 mmol/L 21.0-32.0 [facility] Globulin (S) [Mass/Vol] 4.2 g/dL 2.2-4.2 [facility] Lipase [Catalytic activity/Vol] 22 U/L 13-75 [facility] Comment on above: Please note:LIPASE r evised reference range effective 23. New Lipase methodology. Expected to produce lower values than the previous assay method. NEW Reference Range: 13 - 75 U/L Urea nitrogen/Creatinine [Mass ratio] 10.4 mg/mg 10-20 [facility] Laboratory - Hematology and Cell countsOrdered By: Agustín Estrada on 09-05-2023 Erythrocyte distribution width (RBC) [Entitic vol] 42.2 fL 35.1-43.9 [facility] Erythrocyte distribution width (RBC) [Ratio] 13.2 % 11.6-14.6 [facility] Immature granulocytes/100 WBC (Bld) 0.300 % 0.0-0.9 [facility] Comment on above: IG% - Immature Granu locytes (promyelocytes, myelocytes and metamyelocytes) > 1% indicates that a LEFT SHIFT is Present. MCH (RBC) [Entitic mass] 27.5 pg 27.0-32.0 [facility] Nucleated RBC/100 WBC (Bld) [Ratio] 0 % 0-5 [facility] MCHC Auto (RBC) [Mass/Vol]Or dered By: Agustín Estrada on 09-05-2023 MCHC (RBC) [Mass/Vol] 31.4 g/dL 32-36 [facility] Mucus LM Ql (Urine sed)Order ed By: Agustín Estrada on 09-05-2023 Mucus Ql (Urine sed) 0 SEEN /hpf [facility] Nitrite Test strip Ql (U)Ord ered By: Agustín Estrada on 09-05-2023 Nitrite Ql (U) Negative Negative [facility] No Panel InformationOrdered By: Agustín Estrada on 09-05-2023 Urine Transitional Epithelial Cells 0-5 SEEN /hpf 0-5 [facility] Estimated Creatinine Clearance Calc 79.59 ml/min [facility] Estimated GFR (MDRD) Amer 96 mL/min >60 [facility] Comment on above: GFR Calc Estimated GFR (MDRD) Non-Af Amer 80 mL/min >60 [facility] Comment on above: Non- GFR Calc Platelets bldOrdered By: Austyn Estrada on 09-05-2023 Platelets (Bld) [#/Vol] 296 10*3/uL 150-450 [facility] Protein Test strip Ql (U)Ord ered By: Agustín Estrada on 09-05-2023 Protein Ql (U) 15 mg/dl Negative [facility] Serum or plasma albumin omega urement (mass/volume)Ordered By: Agustín Estrada on 09-05-2023 Albumin [Mass/Vol] 3.5 g/dL 3.2-5.0 [facility] Serum or plasma albumin/glob ulin mass ratioOrdered By: Agustín Estrada on 09-05-2023 Albumin/Globulin [Mass ratio] 0.8 {ratio} 0.9-2.4 [facility] Serum or plasma calcium omega urement (mass/volume)Ordered By: Agustín Estrada on 09-05-2023 Calcium [Mass/Vol] 9.0 mg/dL 8.5-10.1 [facility] Serum or plasma creatinine m easurement (mass/volume)Ordered By: Agustín Estrada on 09-05-2023 Creatinine [Mass/Vol] 0.86 mg/dL 0.55-1.02 [facility] Comment on above: The validity of the calculated GFR & GFRAA in patients over 70 years has not been determined. Clinical correlation is essential. Serum or plasma urea nitroge n measurement (mass/volume)Ordered By: Agustín Estrada on 09-05-2023 Urea nitrogen [Mass/Vol] 9 mg/dL 7-18 [facility] Squamous epithelial cells de tection in urine sediment by light microscopyOrdered By: Agustín Estrada on 09-05-2023 Epithelial cells.squamous LM Ql (Urine sed) 0-5 SEEN /hpf 5-10 [facility] Thin prep Papanicolaou smear with manual screeningOrdered By: Agustín Estrada on 09-05-2023 Thin prep Papanicolaou smear with manual screening 15 U/L 15-37 [facility] Thin prep Papanicolaou smear with manual screening 5 5-15 [facility] Urine blood detectionOrdered By: Agustín Estrada on 09-05-2023 RBC Ql (U) Negative Negative [facility] RBC Ql (U) 0 SEEN /hpf 0-5 [facility] Urine clarityOrdered By: Austyn Estrada on 09-05-2023 Clarity (U) Clear Clear [facility] Urine color determinationOrd ered By: Agustín Estrada on 09-05-2023 Color (U) Yellow Yellow [facility] Urine glucose detectionOrder ed By: Agustín Estrada on 09-05-2023 Glucose Ql (U) Normal mg/dl Normal [facility] Urine leukocyte esterase det ection by dipstickOrdered By: Agustín Estrada on 09-05-2023 Leukocyte esterase Test strip Ql (U) 25 /ul Negative [facility] Urine pHOrdered By: Agustín harris on 09-05-2023 pH (U) 6.0 [pH] 5.0 - 8.0 [facility] Urine sediment bacteria coun t by microscopy (number/high power field)Ordered By: Agustín Estrada on 09-05-2023 Bacteria LM.HPF (Urine sed) [#/Area] 0 /[HPF] None Seen [facility] Urine specific gravity measu rementOrdered By: Agustín Estrada on 09-05-2023 Specific gravity (U) [Rel density] 1.010 1.002-1.030 [facility] Urobilinogen Auto test strip Ql (U)Ordered By: Agustín Estrada on 09-05-2023 Urobilinogen Ql (U) Normal mg/dl Normal [facility] ALLIED HEALTHon 06-07-2023 ALLIED HEALTH HNO ID: [id number] Author: Belkis Hogan RT(R) Service: ? Author Type: Cabinetmaker Helper Type: Allied Health Filed: 06/06/2023 10:13 PM [...] RT Génesis(R) June 06, 2023 10:13 PM Normal [facility] ECG COMPLETEon 06-07-2023 ECG COMPLETE Ventricular Rate : 6 5 BPM Atrial Rate : 65 BPM P-R Interval : 126 ms QRS Duration : 100 ms Q-T Interval : 428 ms QTC Calculation(Bazett) : 445 ms Calculated P [place] : 52 degrees Calculated R [place] : 36 degrees Calculated T [place] : 30 degrees SINUS RHYTHM WITH MARKED SINUS ARRHYTHMIA OTHERWISE NORMAL ECG NO PREVIOUS ECGS AVAILABLE Confirmed by MD BERMEO VINAYAK ([id number]) on 06/07/2023 9:40:19 AM NAME : DAYNA TINSLEY PID : [id number] : 1990 Gender : Female Race : ORD : [id number] Procedure Date : Jun 06 2023 22:12:30 Edit Date : Jun 07 2023 09:40:23 Diagnosis: SINUS RHYTHM WITH MARKED SINUS ARRHYTHMIA OTHERWISE NORMAL ECG NO PREVIOUS ECGS AVAILABLE Confirmed by MD BERMEO VINAYAK ([id number]) on 06/07/2023 9:40:19 AM Test Reason : Chest Pain Location : 150 : [facility] Overread By : MD BERMEO VINAYAK Edited By : MD BERMEO VINAYAK Referred By : , Acquired by : LAUREN CALIX [facility] ED NOTEon 06-07-2023 ED NOTE HNO ID: [id number] Author: Vania Hansen RN Service: Emergency Medicine Author Type: Registered Nurse Type: ED Notes Filed: 06/06/2023 11:05 PM Note Text: Patient is AANDO, wdp, resps unlabored, relaxed facial expression and posture. Does not appear to be in any distress. Dc instr to fu w pmd, return prn, verb und. Ambulates from ER [facility] ED NOTE HNO ID: [id number] Author: Yeny Kay RN Service: Emergency Medicine Author Type: Registered Nurse Type: ED Notes Filed: 06/06/2023 10:30 PM Note Text: Pt refuses zofran. Physician updated. 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 States that when she took out the trash 3 days ago something splashed her arm and she is concerned that it is exposing her to toxins. She states that she has had temperature problems as well as tingling sensation in her right arm since. Was actually seen and evaluated at [facility] for this yesterday. They recommended outpatient [...] Morbid obesity with BMI of 45.0-49.9, adult ([facility]) Personal history of unspecified urinary disorder Thoracic or lumbosacral neuritis or radiculitis, unspecified PAST SURGICAL HISTORY Procedure Laterality Date CHOLECYSTECTOMY 2005 COLECTOMY PARTIAL W ANASTOM 2004 for crohns COLONOSCOPY 12/2011, 06/2014 PAST SURGICAL HISTORY OF ear tubes numerous times PAST SURGICAL HISTORY OF 2012 caudal epidural steroid injection ([place]) SUCTION D AND C 2010 FAMILY HISTORY [...] Intolerance Review of Systems Physical Exam Vitals [06/06/232103] BP Pulse Temp Temp src Resp SpO2 [...] cerebellar testing with finger to nose or [id number] exam. Patient with even steady gait in the emergency room. Diagnostic Testing ED Labs Ordered and Reviewed - No data to display Procedures ED Course / Clinical Impression ED Course as of 06/06/23 2321 Jennifer Zaidi's Documentation Wed Jun 06, 2023 2239 Triage EKG obtained and reviewed by myself. Sinus rhythm noted with sinus arrhythmia. Ventricular to 65 bpm. No (more content not included)... Normal [facility] XR CHEST 2V FRONTAL/LATon XR CHEST 2V [...] significant acute radiographic abnormality of the chest. Auto Haulaway Driver: PSCB Transcribe Date/Time: Jun 06 2023 10:38P Dictated by : RANJAN ANGEL MD This examination was interpreted and the report reviewed and electronically signed by: RANJAN ANGEL MD on Jun 06 2023 10:39PM EST [id number] Normal [facility] ED NOTEon 06-06-2023 ED NOTE HNO ID: [id number] Author: Deborah Ornelas, RN Service: Nursing Author Type: Registered Nurse Type: ED Notes Filed: 06/06/2023 9:21 PM Note Text: Pt states she was at work ([email or web address]) and was splashed by unknown substance of biohazard waste on R forearm. Pt reports she been having chest pain and thinks her R arm is swollen. Pt states I've been sick non-stop back to back for three weeks pt also reports back pain and fevers for three weeks Normal [facility] Absolute lymphocyte countOrd ered By: Major Mejia on 06-05-2023 Lymphocytes Auto (Unsp spec) [#/Vol] 3.02 10*3/uL 0.83-4.51 [facility] Basophil percentageOrdered B y: Major Mejia on 06-05-2023 Basophils/100 WBC (Bld) 0.5 % 0-1 [facility] Chloride [Moles/Vol] 110 mmol/L 98-107 [facility] Eosinophils/100 WBC (Bld) 0.1 % 0-5 [facility] Glucose [Mass/Vol] 96 mg/dL 74-106 [facility] Lactate [Moles/Vol] 0.4 mmol/L 0.4-2.0 [facility] Neutrophils (Bld) [#/Vol] 6.5 10*3/uL 2.0-7.7 [facility] Neutrophils/100 WBC (Bld) 64.4 % 47-70 [facility] Potassium [Moles/Vol] 5.0 mmol/L 3.5-5.1 [facility] Comment on above: Moderate Hemolysis, Result may be falsely increased. Sodium [Moles/Vol] 136 mmol/L 136-145 [facility] WBC (Bld) [#/Vol] 10.1 10*3/uL 4.4-11.0 [facility] Blood erythrocytes count (nu mber/volume)Ordered By: Major Mejia on 06-05-2023 RBC (Bld) [#/Vol] 4.48 10*6/uL 4.2-5.4 [facility] Blood hemoglobin measurement (mass/volume)Ordered By: Major Mejia on 06-05-2023 Hemoglobin (Bld) [Mass/Vol] 12.3 g/dL 12.0-15.0 [facility] Blood lymphocytes/100 leukoc ytesOrdered By: Major Mejia on 06-05-2023 Lymphocytes/100 WBC (Bld) 29.9 % 19-41 [facility] Blood monocytes/100 leukocyt esOrdered By: Major Mejia on 06-05-2023 Monocytes/100 WBC (Bld) 4.8 % 0-10 [facility] Blood platelet mean volumeOr dered By: Major Mejia on 06-05-2023 Platelet mean volume (Bld) [Entitic vol] 10.2 fL 6.2-12.0 [facility] Determination of erythrocyte mean corpuscular volume (MCV)Ordered By: Major Mejia on 06-05-2023 MCV (RBC) [Entitic vol] 85.0 fL 81-99 [facility] Hematocrit Auto (Bld) [Volum e fraction]Ordered By: Major Mejia on 06-05-2023 Hematocrit (Bld) [Volume fraction] 38.1 % 37-47 [facility] Laboratory - Chemistry and C hemistry - challengeOrdered By: Major Mejia on 06-05-2023 CO2 [Moles/Vol] 22.0 mmol/L 21.0-32.0 [facility] Magnesium [Mass/Vol] 2.0 mg/dL 1.6-2.6 [facility] Comment on above: Moderate Hemolysis, Result may be falsely increased. Urea nitrogen/Creatinine [Mass ratio] 4.2 mg/mg 10-20 [facility] Laboratory - Hematology and Cell countsOrdered By: Major Mejia on 06-05-2023 Erythrocyte distribution width (RBC) [Entitic vol] 43.1 fL 35.1-43.9 [facility] Erythrocyte distribution width (RBC) [Ratio] 13.9 % 11.6-14.6 [facility] Immature granulocytes/100 WBC (Bld) 0.300 % 0.0-0.9 [facility] Comment on above: IG% - Immature Granu locytes (promyelocytes, myelocytes and metamyelocytes) > 1% indicates that a LEFT SHIFT is Present. MCH (RBC) [Entitic mass] 27.5 pg 27.0-32.0 [facility] Nucleated RBC/100 WBC (Bld) [Ratio] 0 % 0-5 [facility] MCHC Auto (RBC) [Mass/Vol]Or dered By: Major Mejia on 06-05-2023 MCHC (RBC) [Mass/Vol] 32.3 g/dL 32-36 [facility] No Panel InformationOrdered By: Major Mejia on 06-05-2023 Estimated Creatinine Clearance Calc 96.41 ml/min [facility] Estimated GFR (MDRD) Amer 120 mL/min >60 [facility] Comment on above: GFR Calc Estimated GFR (MDRD) Non-Af Amer 99 mL/min >60 [facility] Comment on above: Non- GFR Calc Troponin I High Sensitivity 3 pg/mL 3.0-54.0 [facility] Comment on above: Please Note: [place] t Units and Gender Specific Reference Ranges. For more information see Policy Stat Procedure Aneta High Sensitivity Troponin (TNIH) and attachments. Platelets bldOrdered By: Johnson Mejia on 06-05-2023 Platelets (Bld) [#/Vol] 243 10*3/uL 150-450 [facility] Serum or plasma calcium omega urement (mass/volume)Ordered By: Major Mejia on 06-05-2023 Calcium [Mass/Vol] 8.3 mg/dL 8.5-10.1 [facility] Serum or plasma creatinine m easurement (mass/volume)Ordered By: Major Mejia on 06-05-2023 Creatinine [Mass/Vol] 0.71 mg/dL 0.55-1.02 [facility] Comment on above: The validity of the calculated GFR & GFRAA in patients over 70 years has not been determined. Clinical correlation is essential. Serum or plasma urea nitroge n measurement (mass/volume)Ordered By: Major Mejia on 06-05-2023 Urea nitrogen [Mass/Vol] 3 mg/dL 7-18 [facility] Thin prep Papanicolaou smear with manual screeningOrdered By: Major Mejia on 06-05-2023 Thin prep Papanicolaou smear with manual screening 4 5-15 [facility] Basophil percentageOrdered B y: Harriet Chirinos on 05-17-2023 Chloride [Moles/Vol] 106 mmol/L 98-107 [facility] Glucose [Mass/Vol] 88 mg/dL 74-106 [facility] Potassium [Moles/Vol] 3.6 mmol/L 3.5-5.1 [facility] Comment on above: Slight Hemolysis, Re sult may be falsely increased. Sodium [Moles/Vol] 138 mmol/L 136-145 [facility] Influenza virus A and B and SARS-CoV-2 (COVID-19) Ag panel - Upper respiratory specimOrdered By: Harriet Chirinos on 05-17-2023 SARS-CoV-2 (COVID-19) RNA JYOTI+probe Ql (Resp) [facility] Laboratory - Chemistry and C hemistry - challengeOrdered By: Harriet Chirinos on 05-17-2023 CO2 [Moles/Vol] 24.0 mmol/L 21.0-32.0 [facility] Urea nitrogen/Creatinine [Mass ratio] 12.3 mg/mg 10-20 [facility] No Panel InformationOrdered By: Harriet Chirinos on 05-17-2023 Estimated Creatinine Clearance Calc 76.91 ml/min [facility] Estimated GFR (MDRD) Amer 93 mL/min >60 [facility] Comment on above: GFR Calc Estimated GFR (MDRD) Non-Af Amer 77 mL/min >60 [facility] Comment on above: Non- GFR Calc Serum or plasma calcium omega urement (mass/volume)Ordered By: Harriet Chirinos on 05-17-2023 Calcium [Mass/Vol] 8.9 mg/dL 8.5-10.1 [facility] Serum or plasma creatinine m easurement (mass/volume)Ordered By: Harriet Chirinos on 05-17-2023 Creatinine [Mass/Vol] 0.89 mg/dL 0.55-1.02 [facility] Comment on above: The validity of the calculated GFR & GFRAA in patients over 70 years has not been determined. Clinical correlation is essential. Serum or plasma urea nitroge n measurement (mass/volume)Ordered By: Harriet Chirinos on 05-17-2023 Urea nitrogen [Mass/Vol] 11 mg/dL 7-18 [facility] Thin prep Papanicolaou smear with manual screeningOrdered By: Harriet Chirinos on 05-17-2023 Thin prep Papanicolaou smear with manual screening 8 5-15 [facility] Absolute lymphocyte countOrd ered By: Dr. Brooks on 01-21-2023 Lymphocytes Auto (Unsp spec) [#/Vol] 2.86 10*3/uL 0.83-4.51 [facility] Basophil percentageOrdered B y: Dr. Brooks on 01-21-2023 Basophil percentage 0 SEEN /hpf 0-5 [facility] Basophils/100 WBC (Bld) 0.4 % 0-1 [facility] Eosinophils/100 WBC (Bld) 0.1 % 0-5 [facility] Neutrophils (Bld) [#/Vol] 7.7 10*3/uL 2.0-7.7 [facility] Neutrophils/100 WBC (Bld) 69.2 % 47-70 [facility] WBC (Bld) [#/Vol] 11.1 10*3/uL 4.4-11.0 [facility] Bilirubin [Mass/Vol] 0.90 mg/dL 0.20-1.00 [facility] Comment on above: For patients on eltr ombopag therapy, use of Dimension Aneta TBIL is not recommended. Chloride [Moles/Vol] 108 mmol/L 98-107 [facility] Glucose [Mass/Vol] 114 mg/dL 74-106 [facility] Comment on above: Fasting Glucose resu lt from 100 to 125 mg/dL suggests IMPAIRED HOMEOSTASIS per A.D.A. criteria. Potassium [Moles/Vol] 3.8 mmol/L 3.5-5.1 [facility] Protein [Mass/Vol] 7.7 g/dL 6.4-8.2 [facility] Sodium [Moles/Vol] 139 mmol/L 136-145 [facility] Beta hCG serum qualOrdered B y: Dr. Brooks on 01-21-2023 Beta HCG ( test) Ql Negative [facility] Bilirubin Test strip Ql (U)O rdered By: Dr. Brooks on 01-21-2023 Bilirubin Ql (U) Negative Negative [facility] Blood erythrocytes count (nu mber/volume)Ordered By: Dr. Brooks on 01-21-2023 RBC (Bld) [#/Vol] 4.99 10*6/uL 4.2-5.4 [facility] Blood hemoglobin measurement (mass/volume)Ordered By: Dr. Brooks on 01-21-2023 Hemoglobin (Bld) [Mass/Vol] 13.0 g/dL 12.0-15.0 [facility] Blood lymphocytes/100 leukoc ytesOrdered By: Dr. Brooks on 01-21-2023 Lymphocytes/100 WBC (Bld) 25.7 % 19-41 [facility] Blood monocytes/100 leukocyt esOrdered By: Dr. Brooks on 01-21-2023 Monocytes/100 WBC (Bld) 4.3 % 0-10 [facility] Blood platelet mean volumeOr dered By: Dr. Brooks on 01-21-2023 Platelet mean volume (Bld) [Entitic vol] 10.8 fL 6.2-12.0 [facility] Determination of erythrocyte mean corpuscular volume (MCV)Ordered By: Dr. Brooks on 01-21-2023 MCV (RBC) [Entitic vol] 82.6 fL 81-99 [facility] Hematocrit Auto (Bld) [Volum e fraction]Ordered By: Dr. Brooks on 01-21-2023 Hematocrit (Bld) [Volume fraction] 41.2 % 37-47 [facility] Ketones Test strip Ql (U)Ord ered By: Dr. Brooks on 01-21-2023 Ketones Ql (U) Negative Negative [facility] Laboratory - Chemistry and C hemistry - challengeOrdered By: Dr. Brooks on 01-21-2023 ALP [Catalytic activity/Vol] 74 U/L 45-117 [facility] ALT [Catalytic activity/Vol] 15 U/L 13-56 [facility] CO2 [Moles/Vol] 24.0 mmol/L 21.0-32.0 [facility] Globulin (S) [Mass/Vol] 4.3 g/dL 2.2-4.2 [facility] Lipase [Catalytic activity/Vol] 57 U/L 73-393 [facility] Urea nitrogen/Creatinine [Mass ratio] 8.5 mg/mg 10-20 [facility] Laboratory - Hematology and Cell countsOrdered By: Dr. Brooks on 01-21-2023 Erythrocyte distribution width (RBC) [Entitic vol] 43.9 fL 35.1-43.9 [facility] Erythrocyte distribution width (RBC) [Ratio] 14.7 % 11.6-14.6 [facility] Immature granulocytes/100 WBC (Bld) 0.300 % 0.0-0.9 [facility] Comment on above: IG% - Immature Granu locytes (promyelocytes, myelocytes and metamyelocytes) > 1% indicates that a LEFT SHIFT is Present. MCH (RBC) [Entitic mass] 26.1 pg 27.0-32.0 [facility] Nucleated RBC/100 WBC (Bld) [Ratio] 0 % 0-5 [facility] MCHC Auto (RBC) [Mass/Vol]Or dered By: Dr. Brooks on 01-21-2023 MCHC (RBC) [Mass/Vol] 31.6 g/dL 32-36 [facility] Mucus LM Ql (Urine sed)Order ed By: Dr. Brooks on 01-21-2023 Mucus Ql (Urine sed) 0 SEEN /hpf [facility] Nitrite Test strip Ql (U)Ord ered By: Dr. Brooks on 01-21-2023 Nitrite Ql (U) Negative Negative [facility] No Panel InformationOrdered By: Dr. Brooks on 01-21-2023 Estimated Creatinine Clearance Calc 64.58 ml/min [facility] Estimated GFR (MDRD) Amer 76 mL/min >60 [facility] Comment on above: GFR Calc Estimated GFR (MDRD) Non-Af Amer 63 mL/min >60 [facility] Comment on above: Non- GFR Calc Platelets bldOrdered By: Dr. Brooks on 01-21-2023 Platelets (Bld) [#/Vol] 282 10*3/uL 150-450 [facility] Protein Test strip Ql (U)Ord ered By: Dr. Brooks on 01-21-2023 Protein Ql (U) Negative Negative [facility] Serum or plasma albumin omega urement (mass/volume)Ordered By: Dr. Brooks on 01-21-2023 Albumin [Mass/Vol] 3.4 g/dL 3.2-5.0 [facility] Serum or plasma albumin/glob ulin mass ratioOrdered By: Dr. Brooks on 01-21-2023 Albumin/Globulin [Mass ratio] 0.8 {ratio} 0.9-2.4 [facility] Serum or plasma calcium omega urement (mass/volume)Ordered By: Dr. Brooks on 01-21-2023 Calcium [Mass/Vol] 8.9 mg/dL 8.5-10.1 [facility] Serum or plasma creatinine m easurement (mass/volume)Ordered By: Dr. Brooks on 01-21-2023 Creatinine [Mass/Vol] 1.06 mg/dL 0.55-1.02 [facility] Comment on above: The validity of the calculated GFR & GFRAA in patients over 70 years has not been determined. Clinical correlation is essential. Serum or plasma urea nitroge n measurement (mass/volume)Ordered By: Dr. Brooks on 01-21-2023 Urea nitrogen [Mass/Vol] 9 mg/dL 7-18 [facility] Squamous epithelial cells de tection in urine sediment by light microscopyOrdered By: Dr. Brooks on 01-21-2023 Epithelial cells.squamous LM Ql (Urine sed) 0-5 SEEN /hpf 5-10 [facility] Thin prep Papanicolaou smear with manual screeningOrdered By: Dr. Brooks on 01-21-2023 Thin prep Papanicolaou smear with manual screening 12 U/L 15-37 [facility] Thin prep Papanicolaou smear with manual screening 7 5-15 [facility] Urine blood detectionOrdered By: Dr. Brooks on 01-21-2023 RBC Ql (U) Negative Negative [facility] RBC Ql (U) 0 SEEN /hpf 0-5 [facility] Urine clarityOrdered By: Dr. Brooks on 01-21-2023 Clarity (U) Clear Clear [facility] Urine color determinationOrd ered By: Dr. Brooks on 01-21-2023 Color (U) Straw Yellow [facility] Urine glucose detectionOrder ed By: Dr. Brooks on 01-21-2023 Glucose Ql (U) Normal mg/dl Normal [facility] Urine leukocyte esterase det ection by dipstickOrdered By: Dr. Brooks on 01-21-2023 Leukocyte esterase Test strip Ql (U) Negative Negative [facility] Urine pHOrdered By: Dr. Joey neumann on 01-21-2023 pH (U) 6.5 [pH] 5.0 - 8.0 [facility] Urine sediment bacteria coun t by microscopy (number/high power field)Ordered By: Dr. Brooks on 01-21-2023 Bacteria LM.HPF (Urine sed) [#/Area] 0 /[HPF] None Seen [facility] Urine specific gravity measu rementOrdered By: Dr. Brooks on 01-21-2023 Specific gravity (U) [Rel density] 1.010 1.002-1.030 [facility] Urobilinogen Auto test strip Ql (U)Ordered By: Dr. Brooks on 01-21-2023 Urobilinogen Ql (U) Normal mg/dl Normal [facility] Absolute lymphocyte countOrd ered By: Dr. Taylor on 12-14-2022 Lymphocytes Auto (Unsp spec) [#/Vol] 2.92 10*3/uL 0.83-4.51 [facility] Basophil percentageOrdered B y: Dr. Taylor on 12-14-2022 Basophil percentage 0 SEEN /hpf 0-5 [facility] Basophils/100 WBC (Bld) 0.6 % 0-1 [facility] Bilirubin [Mass/Vol] 0.80 mg/dL 0.20-1.00 [facility] Comment on above: For patients on eltr ombopag therapy, use of Dimension Aneta TBIL is not recommended. Chloride [Moles/Vol] 108 mmol/L 98-107 [facility] Eosinophils/100 WBC (Bld) 0.1 % 0-5 [facility] Glucose [Mass/Vol] 98 mg/dL 74-106 [facility] Neutrophils (Bld) [#/Vol] 4.4 10*3/uL 2.0-7.7 [facility] Neutrophils/100 WBC (Bld) 56.1 % 47-70 [facility] Potassium [Moles/Vol] 2.9 mmol/L 3.5-5.1 [facility] Protein [Mass/Vol] 7.5 g/dL 6.4-8.2 [facility] Sodium [Moles/Vol] 142 mmol/L 136-145 [facility] WBC (Bld) [#/Vol] 7.8 10*3/uL 4.4-11.0 [facility] Beta hCG serum qualOrdered B y: Dr. Taylor on 12-14-2022 Beta HCG ( test) Ql Negative [facility] Bilirubin Test strip Ql (U)O rdered By: Dr. Taylor on 12-14-2022 Bilirubin Ql (U) Negative Negative [facility] Blood erythrocytes count (nu mber/volume)Ordered By: Dr. Taylor on 12-14-2022 RBC (Bld) [#/Vol] 4.58 10*6/uL 4.2-5.4 [facility] Blood hemoglobin measurement (mass/volume)Ordered By: Dr. Taylor on 12-14-2022 Hemoglobin (Bld) [Mass/Vol] 11.8 g/dL 12.0-15.0 [facility] Blood lymphocytes/100 leukoc ytesOrdered By: Dr. Taylor on 12-14-2022 Lymphocytes/100 WBC (Bld) 37.2 % 19-41 [facility] Blood monocytes/100 leukocyt esOrdered By: Dr. Taylor on 12-14-2022 Monocytes/100 WBC (Bld) 5.7 % 0-10 [facility] Blood platelet mean volumeOr dered By: Dr. Taylor on 12-14-2022 Platelet mean volume (Bld) [Entitic vol] 10.2 fL 6.2-12.0 [facility] Determination of erythrocyte mean corpuscular volume (MCV)Ordered By: Dr. Taylor on 12-14-2022 MCV (RBC) [Entitic vol] 81.0 fL 81-99 [facility] Hematocrit Auto (Bld) [Volum e fraction]Ordered By: Dr. Taylor on 12-14-2022 Hematocrit (Bld) [Volume fraction] 37.1 % 37-47 [facility] Ketones Test strip Ql (U)Ord ered By: Dr. Taylor on 12-14-2022 Ketones Ql (U) Negative Negative [facility] Laboratory - Chemistry and C hemistry - challengeOrdered By: Dr. Taylor on 12-14-2022 ALP [Catalytic activity/Vol] 65 U/L 45-117 [facility] ALT [Catalytic activity/Vol] 17 U/L 13-56 [facility] CO2 [Moles/Vol] 24.0 mmol/L 21.0-32.0 [facility] Globulin (S) [Mass/Vol] 3.8 g/dL 2.2-4.2 [facility] Lipase [Catalytic activity/Vol] 87 U/L 73-393 [facility] Urea nitrogen/Creatinine [Mass ratio] 9.0 mg/mg 10-20 [facility] Laboratory - Hematology and Cell countsOrdered By: Dr. Taylor on 12-14-2022 Erythrocyte distribution width (RBC) [Entitic vol] 41.3 fL 35.1-43.9 [facility] Erythrocyte distribution width (RBC) [Ratio] 14.1 % 11.6-14.6 [facility] Immature granulocytes/100 WBC (Bld) 0.300 % 0.0-0.9 [facility] Comment on above: IG% - Immature Granu locytes (promyelocytes, myelocytes and metamyelocytes) > 1% indicates that a LEFT SHIFT is Present. MCH (RBC) [Entitic mass] 25.8 pg 27.0-32.0 [facility] Nucleated RBC/100 WBC (Bld) [Ratio] 0 % 0-5 [facility] MCHC Auto (RBC) [Mass/Vol]Or dered By: Dr. Taylor on 12-14-2022 MCHC (RBC) [Mass/Vol] 31.8 g/dL 32-36 [facility] Mucus LM Ql (Urine sed)Order ed By: Dr. Taylor on 12-14-2022 Mucus Ql (Urine sed) 0 SEEN /hpf [facility] Nitrite Test strip Ql (U)Ord ered By: Dr. Taylor on 12-14-2022 Nitrite Ql (U) Negative Negative [facility] No Panel InformationOrdered By: Dr. Taylor on 12-14-2022 Estimated Creatinine Clearance Calc 88.90 ml/min [facility] Estimated GFR (MDRD) Amer 110 mL/min >60 [facility] Comment on above: GFR Calc Estimated GFR (MDRD) Non-Af Amer 91 mL/min >60 [facility] Comment on above: Non- GFR Calc Platelets bldOrdered By: Dr. Taylor on 12-14-2022 Platelets (Bld) [#/Vol] 277 10*3/uL 150-450 [facility] Protein Test strip Ql (U)Ord ered By: Dr. Taylor on 12-14-2022 Protein Ql (U) Negative Negative [facility] Serum or plasma albumin omega urement (mass/volume)Ordered By: Dr. Taylor on 12-14-2022 Albumin [Mass/Vol] 3.7 g/dL 3.2-5.0 [facility] Serum or plasma albumin/glob ulin mass ratioOrdered By: Dr. Taylor on 12-14-2022 Albumin/Globulin [Mass ratio] 1.0 {ratio} 0.9-2.4 [facility] Serum or plasma calcium omega urement (mass/volume)Ordered By: Dr. Taylor on 12-14-2022 Calcium [Mass/Vol] 9.1 mg/dL 8.5-10.1 [facility] Serum or plasma creatinine m easurement (mass/volume)Ordered By: Dr. Taylor on 12-14-2022 Creatinine [Mass/Vol] 0.77 mg/dL 0.55-1.02 [facility] Comment on above: The validity of the calculated GFR & GFRAA in patients over 70 years has not been determined. Clinical correlation is essential. Serum or plasma urea nitroge n measurement (mass/volume)Ordered By: Dr. Taylor on 12-14-2022 Urea nitrogen [Mass/Vol] 7 mg/dL 7-18 [facility] Squamous epithelial cells de tection in urine sediment by light microscopyOrdered By: Dr. Taylor on 12-14-2022 Epithelial cells.squamous LM Ql (Urine sed) 0 SEEN /hpf 5-10 [facility] Thin prep Papanicolaou smear with manual screeningOrdered By: Dr. Taylor on 12-14-2022 Thin prep Papanicolaou smear with manual screening 16 U/L 15-37 [facility] Thin prep Papanicolaou smear with manual screening 10 5-15 [facility] Urine blood detectionOrdered By: Dr. Taylor on 12-14-2022 RBC Ql (U) Negative Negative [facility] RBC Ql (U) 0 SEEN /hpf 0-5 [facility] Urine clarityOrdered By: Dr. Taylor on 12-14-2022 Clarity (U) Clear Clear [facility] Urine color determinationOrd ered By: Dr. Taylor on 12-14-2022 Color (U) Yellow Yellow [facility] Urine glucose detectionOrder ed By: Dr. Taylro on 12-14-2022 Glucose Ql (U) Normal mg/dl Normal [facility] Urine leukocyte esterase det ection by dipstickOrdered By: Dr. Taylor on 12-14-2022 Leukocyte esterase Test strip Ql (U) Negative Negative [facility] Urine pHOrdered By: Dr. Miguel miranda on 12-14-2022 pH (U) 6.5 [pH] 5.0 - 8.0 [facility] Urine sediment bacteria coun t by microscopy (number/high power field)Ordered By: Dr. Taylor on 12-14-2022 Bacteria LM.HPF (Urine sed) [#/Area] 0 /[HPF] None Seen [facility] Urine specific gravity measu rementOrdered By: Dr. Taylor on 12-14-2022 Specific gravity (U) [Rel density] 1.010 1.002-1.030 [facility] Urobilinogen Auto test strip Ql (U)Ordered By: Dr. Taylor on 12-14-2022 Urobilinogen Ql (U) Normal mg/dl Normal [facility] Basic metabolic 2000 panelon 12-03-2022 Anion gap [Moles/Vol] 11 mmol/L Normal 9-18 [facility] Comment on above: Order Comment: Speci men Type: BLOOD SPECIMEN Ordering Facility: [facility] Address: [address] [place] [address] Performed By: #### 2 4321-2, 2157-04 #### [facility] CLIA [id number] [address] [facility] [place] [address] [place] Calcium [Mass/Vol] 9.0 mg/dL Normal 8.5-10.2 [facility] Comment on above: Order Comment: Speci men Type: BLOOD SPECIMEN Ordering Facility: [facility] Address: [address] [place] [address] Performed By: #### 2 4320-2, 2157-04 #### [facility] CLIA [id number] [address] [place] [address] [place] Chloride [Moles/Vol] 106 mmol/L High 97-105 [facility] Comment on above: Order Comment: Speci men Type: BLOOD SPECIMEN Ordering Facility: [facility] Address: [address] [place] [address] Performed By: #### 2 2, 2157-04 #### [facility] CLIA [id number] [address] [place] [address] [place] CO2 [Moles/Vol] 21 mmol/L Low 22-30 [facility] Comment on above: Order Comment: Speci men Type: BLOOD SPECIMEN Ordering Facility: [facility] Address: [address] [place] [address] Performed By: #### 2 4321-2, 2157-04 #### [facility] CLIA [id number] [address] [place] [address] [place] Creatinine [Mass/Vol] 0.67 mg/dL Normal 0.58-0.96 [facility] Comment on above: Order Comment: Speci men Type: BLOOD SPECIMEN Ordering Facility: [facility] Address: [address] [place] [address] Performed By: #### 2 4321-, 2157-04 #### [facility] CLIA [id number] [address] [place] [id number] [facility] [place] ESTIMATED GLOMERULAR FILTRATION RATE 119 mL/min/1.73m??? Normal >=60 [facility] Comment on above: Order Comment: Juana davis Type: BLOOD SPECIMEN Ordering Facility: [facility] Address: [place] [address] Result Comment: Zoya mated Glomerular Filtration Rate [...] reflect actual GFR. Performed By: #### 2 4321-, 2157-04 #### [facility] CLIA [id number] [address] [place], [place] [id number] [place] Glucose [Mass/Vol] 107 mg/dL High 74-99 [facility] Comment on above: Order Comment: Juana davis Type: BLOOD SPECIMEN Ordering Facility: [facility] Address: [address] [place] [address] Result Comment: The [place] [employer] (ADA) provides guidance for cutoff [...] Standards of Medical Care in Diabetes 2016, [place] [employer]. Diabetes Care. 2016.39(Suppl 1). Performed By: #### 2 4321-2, 2157-04 #### [facility] CLIA [id number] [address] [place] [address] [place] Potassium [Moles/Vol] 3.7 mmol/L Normal 3.7-5.1 [facility] Comment on above: Order Comment: Speci men Type: BLOOD SPECIMEN Ordering Facility: [facility] Address: [address] [place] [address] Performed By: #### 2 4321-2, 2157-04 #### [facility] CLIA [id number] [address] [place] [address] [place] Sodium [Moles/Vol] 138 mmol/L Normal 136-144 [facility] Comment on above: Order Comment: Speci men Type: BLOOD SPECIMEN Ordering Facility: [facility] Address: [address] [place] [address] Performed By: #### 2 4321-2, 2157-04 #### [facility] CLIA [id number] [address] [place] [address] [place] Urea nitrogen [Mass/Vol] 7 mg/dL Normal 7-21 [facility] Comment on above: Order Comment: Speci men Type: BLOOD SPECIMEN Ordering Facility: [facility] Address: [address] [place] [address] Performed By: #### 2 432-2, 2157-04 #### [facility] CLIA [id number] [address] [place] CBC W Auto Differential pane l (Bld)on 12-03-2022 Basophils (Bld) [#/Vol] 10*3/uL Normal <0.11 [facility] Comment on above: Order Comment: Speci men Type: BLOOD SPECIMEN Ordering Facility: [facility] Address: [address] [place] [address] Performed By: #### 5 7021-8 #### [facility] CLIA [id number] [address] [place] Basophils/100 WBC (Bld) 0.3 % Normal [facility] Comment on above: Order Comment: Speci men Type: BLOOD SPECIMEN Ordering Facility: [facility] Address: [address] [place] [address] Performed By: #### 5 7021-8 #### [facility] CLIA [id number] [address] Differential cell count method Nom (Bld) Auto Normal [facility] Comment on above: Order Comment: Speci men Type: BLOOD SPECIMEN Ordering Facility: [facility] Address: [address] [place] [address] Performed By: #### 5 7021-8 #### [facility] CLIA [id number] [address] [place] Eosinophils (Bld) [#/Vol] 10*3/uL Normal <0.46 [facility] Comment on above: Order Comment: Speci men Type: BLOOD SPECIMEN Ordering Facility: [facility] Address: [address] [place] [address] Performed By: #### 5 7021-8 #### [facility] CLIA [id number] [address] [place] [address] Eosinophils/100 WBC (Bld) 0.0 % Normal [facility] Comment on above: Order Comment: Speci men Type: BLOOD SPECIMEN Ordering Facility: [facility] Address: [address] [place] [address] Performed By: #### 5 7021-8 #### [facility] CLIA [id number] [address] [place] Erythrocyte distribution width (RBC) [Ratio] 13.9 % Normal 11.5-15.0 [facility] Comment on above: Order Comment: Speci men Type: BLOOD SPECIMEN Ordering Facility: [facility] Address: [address] [place] [address] Performed By: #### 5 7021-8 #### [facility] CLIA [id number] [address] [place] Hematocrit (Bld) [Volume fraction] 36.7 % Normal 36.0-46.0 [facility] Comment on above: Order Comment: Speci men Type: BLOOD SPECIMEN Ordering Facility: [facility] Address: [address] [place] [address] Performed By: #### 5 7021-8 #### [facility] CLIA [id number] [address] [place] [address] [place] Hemoglobin (Bld) [Mass/Vol] 11.7 g/dL Normal 11.5-15.5 [facility] Comment on above: Order Comment: Speci men Type: BLOOD SPECIMEN Ordering Facility: [facility] Address: [address] [place] [address] Performed By: #### 5 7021-8 #### [facility] CLIA [id number] [address] [place] [address] [place] Immature granulocytes (Bld) [#/Vol] 10*3/uL Normal <0.10 [facility] Comment on above: Order Comment: Speci men Type: BLOOD SPECIMEN Ordering Facility: [facility] Address: [address] [place] [address] Performed By: #### 5 7021-8 #### [facility] CLIA [id number] [address] [place] [address] [place] Immature granulocytes/100 WBC (Bld) 0.1 % Normal [facility] Comment on above: Order Comment: Speci men Type: BLOOD SPECIMEN Ordering Facility: [facility] Address: [address] [place] [address] Performed By: #### 5 7021-8 #### [facility] CLIA [id number] [address] [place] [address] [place] Lymphocytes (Bld) [#/Vol] 2.29 10*3/uL Normal 1.00-4.00 [facility] Comment on above: Order Comment: Speci men Type: BLOOD SPECIMEN Ordering Facility: [facility] Address: [address] [place] [address] Performed By: #### 5 7021-8 #### [facility] CLIA [id number] [address] [place] [facility] Lymphocytes/100 WBC (Bld) 30.1 % Normal [facility] Comment on above: Order Comment: Speci men Type: BLOOD SPECIMEN Ordering Facility: [facility] Address: [address] [place] [address] Performed By: #### 5 7021-8 #### [facility] CLIA [id number] [address] [place] [address] MCH (RBC) [Entitic mass] 25.7 pg Low 26.0-34.0 [facility] Comment on above: Order Comment: Speci men Type: BLOOD SPECIMEN Ordering Facility: [facility] Address: [address] [place] [address] Performed By: #### 5 7021-8 #### [facility] CLIA [id number] [address] [place] [address] [place] [facility] MCHC (RBC) [Mass/Vol] 31.9 g/dL Normal 30.5-36.0 [facility] Comment on above: Order Comment: Speci men Type: BLOOD SPECIMEN Ordering Facility: [facility] Address: [address] [place] [address] Performed By: #### 5 7021-8 #### [facility] CLIA [id number] [address] [place] [address] [place] MCV (RBC) [Entitic vol] 80.7 fL Normal 80.0-100.0 [facility] Comment on above: Order Comment: Speci men Type: BLOOD SPECIMEN Ordering Facility: [facility] Address: [address] [place] [address] Performed By: #### 5 7021-8 #### [facility] CLIA [id number] [address] [place] Monocytes (Bld) [#/Vol] 0.49 10*3/uL Normal <0.87 [facility] Comment on above: Order Comment: Speci men Type: BLOOD SPECIMEN Ordering Facility: [facility] Address: [address] [place] [address] Performed By: #### 5 7021-8 #### [facility] CLIA [id number] [address] [place] [address] [place] Monocytes/100 WBC (Bld) 6.4 % Normal [facility] Comment on above: Order Comment: Speci men Type: BLOOD SPECIMEN Ordering Facility: [facility] Address: [address] [place] [address] Performed By: #### 5 7021-8 #### [facility] CLIA [id number] [address] [place] [address] [place] Neutrophils (Bld) [#/Vol] 4.80 10*3/uL Normal 1.45-7.50 [facility] Comment on above: Order Comment: Speci men Type: BLOOD SPECIMEN Ordering Facility: [facility] Address: [address] [place] [address] Performed By: #### 5 7021-8 #### [facility] CLIA [id number] [address] [place] [address] [place] Neutrophils/100 WBC (Bld) 63.1 % Normal [facility] Comment on above: Order Comment: Speci men Type: BLOOD SPECIMEN Ordering Facility: [facility] Address: [address] [place] [address] Performed By: #### 5 7021-8 #### [facility] CLIA [id number] [address] [place] [address] [place] Nucleated RBC (Bld) [#/Vol] Normal [facility] Comment on above: Order Comment: Speci men Type: BLOOD SPECIMEN Ordering Facility: [facility] Address: [address] [place] [address] Performed By: #### 5 7021-8 #### [facility] CLIA [id number] [address] [place] [address] [place] Nucleated RBC/100 WBC (Bld) [Ratio] Normal [facility] Comment on above: Order Comment: Speci men Type: BLOOD SPECIMEN Ordering Facility: [facility] Address: [address] [place] [address] Performed By: #### 5 7021-8 #### [facility] CLIA [id number] [address] [place] [address] [place] Platelet mean volume (Bld) [Entitic vol] 9.7 fL Normal 9.0-12.7 [facility] Comment on above: Order Comment: Speci men Type: BLOOD SPECIMEN Ordering Facility: [facility] Address: [address] [place] [address] Performed By: #### 5 7021-8 #### [facility] CLIA [id number] [address] [place] [address] [place] Platelets (Bld) [#/Vol] 227 10*3/uL Normal 150-400 [facility] Comment on above: Order Comment: Speci men Type: BLOOD SPECIMEN Ordering Facility: [facility] Address: [address] [place] [address] Performed By: #### 5 7021-8 #### [facility] CLIA [id number] [address] [place] [address] [place] RBC (Bld) [#/Vol] 4.55 10*6/uL Normal 3.90-5.20 [facility] Comment on above: Order Comment: Speci men Type: BLOOD SPECIMEN Ordering Facility: [facility] Address: [address] [place] [address] Performed By: #### 5 7021-8 #### [facility] CLIA [id number] [address] [place] [address] [place] WBC (Bld) [#/Vol] 7.61 10*3/uL Normal 3.70-11.00 [facility] Comment on above: Order Comment: Speci men Type: BLOOD SPECIMEN Ordering Facility: [facility] Address: [address] [place] [address] Performed By: #### 5 7021-8 #### [facility] CLIA [id number] [address] [place] [address] [facility] CK SerPl-cCncon 12-03-2022 CK [Catalytic activity/Vol] 75 U/L Normal 42-196 [facility] Comment on above: Order Comment: Speci men Type: BLOOD SPECIMEN Ordering Facility: [facility] Address: [place] [id number] Performed By: #### 2 4321-2, 2157-6 #### [facility] CLIA [id number] [address] [place] [address] [facility] ED NOTEon 12-03-2022 ED NOTE HNO ID: [id number] Author: Zina Trimble RN Service: ? Author Type: Registered Nurse Type: ED Notes Filed: 12/03/2022 3:20 PM Note Text: D/c instructions reviewed with pt. Pt verbalized understanding. VSS. Pt left ED ual and in stable condition. Normal [facility] ED NOTE HNO ID: [id number] Author: Zina Trimble RN Service: ? Author [...] vss. AANDOx3, will continue to monitor. Normal [facility] ED PROV NOTEon 12-03-2022 ED PROV NOTE HNO ID: [id number] Author: Stu Hallman MD Service: Emergency Medicine Author Type: Physician Type: ED Provider Notes Filed: 12/03/2022 3:30 PM Note Text: ED Provider Note Patient Name: Dayna Tinsley : 1991 SERVICE DATE: 1/29/23 History Patient presents with: Abdominal Pain Back [...] Patient notes she just moved back from [place] and does not have any referrals or [...] PAST SURGICAL HISTORY Procedure Laterality Date CHOLECYSTECTOMY 2004 COLECTOMY PARTIAL W ANASTOM 2004 for crohns COLONOSCOPY 12/2011, 06/2014 PAST SURGICAL HISTORY OF ear tubes numerous times PAST SURGICAL HISTORY OF 2012 caudal epidural steroid injection ([place]) SUCTION D AND C 2010 FAMILY HISTORY [...] the follow (more content not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 easurement (mass/volume)Ordered By: Dr. Fair on 08-18-2022 Creatinine [Mass/Vol] 0.97 mg/dL 0.55-1.02 [facility] Comment on above: The validity of the calculated GFR & GFRAA in patients over 70 years has not been determined. Clinical correlation is essential. Serum or plasma urea nitroge n measurement (mass/volume)Ordered By: Dr. Fair on 08-18-2022 Urea nitrogen [Mass/Vol] 8 mg/dL 7-18 [facility] Squamous epithelial cells de tection in urine sediment by light microscopyOrdered By: Dr. Fair on 08-18-2022 Epithelial cells.squamous LM Ql (Urine sed) 0-5 SEEN /hpf 5-10 [facility] Comment on above: Previous reported re sult: 0 SEEN /hpfEdited by: PHYLLIS on 08/18/22:1712 AMENDED REPORT 08/18/221711 SQUAM EPI previously reported as: 0 SEEN /hpf Thin prep Papanicolaou smear with manual screeningOrdered By: Dr. Fair on 08-18-2022 Thin prep Papanicolaou smear with manual screening 12 U/L 15-37 [facility] Thin prep Papanicolaou smear with manual screening 7 5-15 [facility] Urine blood detectionOrdered By: Dr. Fair on 08-18-2022 RBC Ql (U) Negative Negative [facility] RBC Ql (U) 0-5 SEEN /hpf 0-5 [facility] Comment on above: Previous reported re sult: 0 SEEN /hpfEdited by: PHYLLIS on 08/18/22:1711 AMENDED REPORT 08/18/221710 RBC-UA previously reported as: 0 SEEN /hpf Urine clarityOrdered By: Dr. Fair on 08-18-2022 Clarity (U) Clear Clear [facility] Urine color determinationOrd ered By: Dr. Fair on 08-18-2022 Color (U) Yellow Yellow [facility] Urine glucose detectionOrder ed By: Dr. Fair on 08-18-2022 Glucose Ql (U) Normal mg/dl Normal [facility] Urine leukocyte esterase det ection by dipstickOrdered By: Dr. Fair on 08-18-2022 Leukocyte esterase Test strip Ql (U) Negative Negative [facility] Urine pHOrdered By: Dr. Fair o n 08-18-2022 pH (U) 7.0 [pH] 5.0 - 8.0 [facility] Urine sediment bacteria coun t by microscopy (number/high power field)Ordered By: Dr. Fair on 08-18-2022 Bacteria LM.HPF (Urine sed) [#/Area] RARE /hpf None Seen [facility] Comment on above: Previous reported re sult: 0 SEEN /hpfEdited by: PHYLLIS on 08/18/22:1712 AMENDED REPORT 08/18/22 171 BACTERIA previously reported as: 0 SEEN /hpf Urine specific gravity measu rementOrdered By: Dr. Fair on 08-18-2022 Specific gravity (U) [Rel density] 1.010 1.002-1.030 [facility] Urobilinogen Auto test strip Ql (U)Ordered By: Dr. Fair on 08-18-2022 Urobilinogen Ql (U) Normal mg/dl Normal [facility] Cult,Urineon 03-27-2019 Cult,Urine Specimen Description .URINE Special Requests NOT REPORTED Culture NO SIGNIFICANT GROWTH Report Status FINAL 03/27/2019 Normal [facility] Comment on above: Performed By: #### C DP, CP #### [facility] [address] [place] [address] CBC with Diffon 03-26-2019 Auto Diff Performed YES Normal [facility] Comment on above: Performed By: #### C DP, CP #### [facility] [address] [place] [address] Abs. Basophil 0.10 k/uL Normal 0.0-0.2 [facility] Comment on above: Performed By: #### C DP, CP #### [facility] [address] [place] [address] Abs.Neutrophil (Seg) 9.50 k/uL High 2.5-7.0 [facility] Comment on above: Performed By: #### C DP, CP #### [facility] [address] [place] [address] Basophils/100 WBC (Bld) 1 % Normal 0-2 [facility] Comment on above: Performed By: #### C DP, CP #### [facility] [address] [place] [address] Eosinophils #/vol (Bld) 0.30 10*3/uL Normal 0.0-0.4 [facility] Comment on above: Performed By: #### C DP, CP #### [facility] [address] [facility]. [place] [id number] Eosinophils/100 WBC (Bld) 3 % Normal 0-5 [facility] Comment on above: Performed By: #### C DP, CP #### [facility] [address] [facility] [place] [id number] Lymphocytes #/vol (Bld) 1.60 10*3/uL Normal 1.0-4.8 [facility] Comment on above: Performed By: #### C DP, CP #### [facility] [address] [facility] [place] [address] Lymphocytes/100 WBC (Bld) 13 % Low 15-40 [facility] Comment on above: Performed By: #### C DP, CP #### [facility] [address] [facility] [place] [address] Monocytes #/vol (Bld) 0.50 10*3/uL Normal 0.0-1.0 [facility] Comment on above: Performed By: #### C DP, CP #### [facility] [address] [facility] [place] [address] Monocytes/100 WBC (Bld) 4 % Normal 4-8 [facility] Comment on above: Performed By: #### C DP, CP #### [facility] [address] [facility] [place] [address] Neutrophil (Seg) 79 % High 47-75 [facility] Comment on above: Performed By: #### C DP, CP #### [facility] [address] [facility] [place] [address] Erythrocyte distribution width Ratio (RBC) 14.3 % Normal 12.1-15.2 [facility] Comment on above: Performed By: #### C DP, CP #### [facility] [address] [facility] [place] [address] Hematocrit Volume Fraction (Bld) 38.7 % Normal 36-46 [facility] Comment on above: Performed By: #### C DP, CP #### [facility] [address] [place] [address] Hemoglobin mass conc (Bld) 12.3 g/dL Normal 12.0-16.0 [facility] Comment on above: Performed By: #### C DP, CP #### [facility] [address] [place] [address] MCH Entitic mass (RBC) 24.9 pg Low 26-34 [facility] Comment on above: Performed By: #### C DP, CP #### [place] [address] MCHC mass conc (RBC) 31.8 g/dL Normal 31-37 [facility] Comment on above: Performed By: #### C DP, CP #### [facility] [address] [place] [address] MCV Entitic volume (RBC) 78.5 fL Low 80-100 [facility] Comment on above: Performed By: #### C DP, CP #### [facility] [address] [place] [address] Platelets #/vol (Bld) 302 10*3/uL Normal 140-450 [facility] Comment on above: Performed By: #### C DP, CP #### [facility] [address] [place] [address] RBC #/vol (Bld) 4.93 10*6/uL Normal 4.0-5.2 [facility] Comment on above: Performed By: #### C DP, CP #### [facility] [address] [place] [address] WBC #/vol (Bld) 12.5 10*3/uL High 3.5-11.0 [facility] Comment on above: Performed By: #### C DP, CP #### [facility] [address] [facility] [place] [address] Abs.Imm.Granulocyte NOT REPORTED Normal 0.00-0.30 [facility] Comment on above: Performed By: #### C DP, CP #### [facility] [address] [facility] [place] [address] Immature granulocytes #/vol (Bld) NOT REPORTED Normal 0 [facility] Comment on above: Performed By: #### C DP, CP #### [facility] [address] [facility] [place] [address] NRBC Automated NOT REPORTED Normal [facility] Comment on above: Performed By: #### C DP, CP #### [facility] [address] [facility] [place] [address] Platelet mean volume Entitic volume (Bld) NOT REPORTED Normal [facility] Comment on above: Performed By: #### C DP, CP #### [facility] [address] [facility] [place] [address] Platelets #/vol (Bld) NOT REPORTED Normal [facility] Comment on above: Performed By: #### C DP, CP #### [facility] [address] [facility] [place] [address] RBC morphology finding Nom (Bld) NOT REPORTED Normal [facility] Comment on above: Performed By: #### C DP, CP #### [facility] [address] [facility] [place] [address] WBC Morphology NOT REPORTED Normal [facility] Comment on above: Performed By: #### C DP, CP #### [facility] [address] [facility] [place] [id number] Comp Metabolic Profon 2018 (cont.) Normal [facility] Comment on above: Result Comment: Aver age GFR for 30-39 years old: 107 mL/min/1.73sq m Chronic Kidney Disease: <60 mL/min/1.73sq m Kidney failure: <15 mL/min/1.73sq m eGFR calculated using average adult body mass. Additional eGFR calculator available at: http://www.[employer]/multiple_crcl_2012.htm Performed By: #### U A, KAELYNO #### [facility] [address] [facility] [place] [address] Albumin mass conc 4.5 g/dL Normal 3.5-5.2 [facility] Comment on above: Performed By: #### U A, UMICAO #### [facility] [address] [place] [address] Alkaline Phos 86 U/L Normal 35-104 [facility] Comment on above: Performed By: #### U Angel, UMSTEFFO #### [facility] [address] [facility] [place] [address] ALT enzyme act/vol 9 U/L Normal 5-33 [facility] Comment on above: Performed By: #### U A, UMICAO #### [facility] [address] [place] [address] Anion gap molar conc 13 mmol/L Normal 9-17 [facility] Comment on above: Performed By: #### U A, UMICAO #### [facility] [address] [facility] [place] [address] AST enzyme act/vol 11 U/L Normal <32 [facility] Comment on above: Performed By: #### U A, UMICAO #### [facility] [address] [place] [address] Bilirubin Ql (U) 1.13 mg/dL Normal 0.30-1.20 [facility] Comment on above: Performed By: #### U A, UMICAO #### [facility] [address] [place] [address] BUN/CRE Ratio 7 Low 9-20 [facility] Comment on above: Performed By: #### SAMEERA Carcamo #### [facility] [address] [facility] [place] [address] Calcium mass conc 9.6 mg/dL Normal 8.6-10.4 [facility] Comment on above: Performed By: #### SAMEERA Carcamo #### [facility] [address] [facility] [place] [address] Chloride molar conc 104 mmol/L Normal 98-107 [facility] Comment on above: Performed By: #### SAMEERA Carcamo #### [facility] [address] [facility] [place] [address] CO2 molar conc 23 mmol/L Normal 20-31 [facility] Comment on above: Performed By: #### SAMEERA Carcamo #### [facility] [address] [facility] [place] [address] Creatinine mass conc 0.70 mg/dL Normal 0.50-0.90 [facility] Comment on above: Performed By: #### SAMEERA Carcamo #### [facility] [address] [facility] [place] [address] GFR, Amer >60 Normal >60 [facility] Comment on above: Performed By: #### SAMEERA Carcamo #### [facility] [address] [facility] [place] [address] GFR,non Amer >60 Normal >60 [facility] Comment on above: Performed By: #### SAMEERA Carcamo #### [facility] [address] [facility] [place] [address] Glucose mass conc 154 mg/dL High 70-99 [facility] Comment on above: Performed By: #### SAMEERA Carcamo #### [facility] [address] [facility] [place] [address] (276) Potassium molar conc 4.0 mmol/L Normal 3.7-5.3 [facility] Comment on above: Performed By: #### U KAELYN OrtizO #### [facility] [address] [place] [address] (494) Protein mass conc 8.4 g/dL High 6.4-8.3 [facility] Comment on above: Performed By: #### KAELYN CarcamoO #### [facility] [address] [place] [address] (069) Sodium molar conc 140 mmol/L Normal 135-144 [facility] Comment on above: Performed By: #### KAELYN CarcamoO #### [facility] [address] [facility] [place] [address] (158) Urea nitrogen mass conc 5 mg/dL Low 6-20 [facility] Comment on above: Performed By: #### KAELYN CarcamoO #### [facility] [address] [facility] [place] [address] (247) Albumin/Globulin mass ratio NOT REPORTED Normal 1.0-2.5 [facility] Comment on above: Performed By: #### GINA CarcamoICAO #### [facility] [address] [facility] [place] [address] (689) Staging: NOT REPORTED Normal [facility] Comment on above: Performed By: #### GINA CarcamoICAO #### [facility] [address] [facility] [place] [address] (230) Diff Methodon 03-26-2019 Diff Method AUTO Normal [facility] Comment on above: Performed By: #### C DP, CP #### [facility] [address] [facility] [place] [address] (225) HCG Screen, Bloodon 03-26-20 19 HCG Qn Negative Normal NEG [facility] Comment on above: Result Comment: Spec imens with hCG levels near the threshold of the test (25 mIU/mL) may give a negative or indeterminate result. In such cases, another test should be performed with a new specimen in 48-72 hours. If early is suspected clinically in this setting, correlation with quantitative serum b-hCG level is suggested. [facility] has confirmed the use of plasma for this test. This has not been cleared or approved by the U.[place]. Food and Drug Administration. The FDA has determined that such clearance is not necessary. Performed By: #### SAMEERA Carcamo #### [address] [address] Lactic Acidon 03-26-2019 Lactate molar conc 1.4 mmol/L Normal 0.5-2.2 [facility] Comment on above: Performed By: #### SAMEERA Carcamo #### [address] [address] Lactate molar conc NOT REPORTED Normal 0.7-2.1 [facility] Comment on above: Performed By: #### SAMEERA Carcamo #### [address] [address] Lipaseon 03-26-2019 Lipase enzyme act/vol 17 U/L Normal 13-60 [facility] Comment on above: Performed By: #### SAMEERA Carcamo #### [facility] [address] [place] [address] Urinalysis w/ Microon 2018 ----- Normal [facility] Comment on above: Performed By: #### C DP, CP #### [facility] [address] [place] [address] Bacteria LM.HPF #/area (Urine sed) 2+ Abnormal NONE [facility] Comment on above: Performed By: #### C DP, CP #### [facility] [address] [place] [address] Epithelial cells LM.HPF #/area (Urine sed) 5 TO 10 Normal [facility] Comment on above: Performed By: #### C DP, CP #### [facility] [address] [facility] [address] Mucus Strands 3+ Abnormal NONE [facility] Comment on above: Performed By: #### C DP, CP #### [facility] [address] [facility] [place] [address] RBC #/vol (U) 0 TO 2 Normal 0-2 [facility] Comment on above: Performed By: #### C DP, CP #### [facility] [address] [facility] [place] [address] WBC #/vol (U) 5 TO 10 Normal 0 [facility] Comment on above: Performed By: #### C DP, CP #### [facility] [address] [facility] [place] [address] Acetoacetic Acid,Ur Negative Normal NEG [facility] Comment on above: Performed By: #### C DP, CP #### [facility] [address] [facility] [place] [address] Bilirubin, SemiQt,Ur Negative Normal NEG [facility] Comment on above: Performed By: #### C DP, CP #### [facility] [address] [facility] [place] [address] Color Nom (U) YELLOW Normal YEL [facility] Comment on above: Performed By: #### C DP, CP #### [facility] [address] [facility] [place] [address] Comment Normal [facility] Comment on above: Performed By: #### C DP, CP #### [facility] [address] [facility] [place] [address] Glucose,Semi-qnt,Ur Negative Normal NEG [facility] Comment on above: Performed By: #### C DP, CP #### [facility] [address] [facility] [place] [address] Hemoglobin, Ur TRACE Abnormal NEG [facility] Comment on above: Performed By: #### C DP, CP #### [facility] [address] [facility] [place] [address] Leuckocyte Esterase 2+ Abnormal NEG [facility] Comment on above: Performed By: #### C DP, CP #### [facility] [address] [facility] [place] [address] Nitrite,Ur Negative Normal NEG [facility] Comment on above: Performed By: #### C DP, CP #### [facility] [address] [facility] [place] [address] PH,Ur 5.0 Normal 5.0-8.0 [facility] Comment on above: Performed By: #### C DP, CP #### [facility] [address] [facility] [place] [address] Protein mass conc (U) Negative Normal NEG [facility] Comment on above: Performed By: #### C DP, CP #### [facility] [address] [facility] [place] [address] Spec. [place],Ur 1.020 Normal 1.005-1.030 [facility] Comment on above: Performed By: #### C DP, CP #### [facility] [address] [facility] [place] [address] Turbidity HAZY Abnormal CLEAR [facility] Comment on above: Performed By: #### C DP, CP #### [facility] [address] [facility] [place] [address] Urobilinogen,Ur Normal Normal NORM [facility] Comment on above: Performed By: #### C DP, CP #### [facility] [address] [facility] [place] [address] Amorphous sediment LM Ql (Urine sed) NOT REPORTED Normal NONE [facility] Comment on above: Performed By: #### C DP, CP #### [facility] [address] [facility] [place] [address] Casts LM.LPF #/area (Urine sed) NOT REPORTED Normal [facility] Comment on above: Performed By: #### C DP, CP #### [facility] [address] [facility] [place] [address] Crystals LM Nom (Urine sed) NOT REPORTED Normal NONE [facility] Comment on above: Performed By: #### C DP, CP #### [facility] [address] [facility] [place] [address] Epithelial, Renal NOT REPORTED Normal 0 [facility] Comment on above: Performed By: #### C DP, CP #### [facility] [address] [facility] [place] [address] Other Observations NOT REPORTED Normal NREQ [facility] Comment on above: Performed By: #### C DP, CP #### [facility] [address] [facility] [place] [address] Trichomonas NOT REPORTED Normal NONE [facility] Comment on above: Performed By: #### C DP, CP #### [facility] [address] [facility] [place] [address] Yeast LM Ql (Urine sed) NOT REPORTED Normal NONE [facility] Comment on above: Performed By: #### C DP, CP #### [facility] [address] [facility] [place] [address] Amylaseon 03-18-2019 Amylase enzyme act/vol 51 U/L Normal 30 - 110 [facility] Comment on above: Performed By: #### L IPASE, CMP, AMYLASE #### [facility] [address] [place] [address] CBC W Auto Differentialon Abs Neut # 5.9 10 X 3/mm Normal 1.8 - 7.7 [facility] Comment on above: Performed By: #### C BC Auto Diff #### [facility] [address] [place] [address] Basophils/100 WBC (Bld) 1 % Normal 0 - 1 [facility] Comment on above: Performed By: #### C BC Auto Diff #### [facility] [address] [place] [address] Eosinophils #/vol (Bld) 0.7 10 X 3/mm High 0.0 - 0.5 [facility] Comment on above: Performed By: #### C BC Auto Diff #### [place] [address] [place] [address] Eosinophils/100 WBC (Bld) 7 % High 0 - 5 [facility] Comment on above: Performed By: #### C BC Auto Diff #### [place] [address] [place] [address] Erythrocyte distribution width Ratio (RBC) 17.5 % High 11.5 - 14.5 [facility] Comment on above: Performed By: #### C BC Auto Diff #### [place] [address] [place] [address] Hematocrit Volume Fraction (Bld) 39.0 % Normal 36.0 - 47.0 [facility] Comment on above: Performed By: #### C BC Auto Diff #### [place] [place] [address] Hemoglobin mass conc (Bld) 12.4 g/dL Normal 12.0 - 16.0 [facility] Comment on above: Performed By: #### C BC Auto Diff #### [address] [place] [address] Lymphocytes #/vol (Bld) 2.2 10 X 3/mm Normal 1.0 - 4.0 [facility] Comment on above: Performed By: #### C BC Auto Diff #### [facility] [address] [place] [address] Lymphocytes/100 WBC (Bld) 23 % Normal 20 - 40 [facility] Comment on above: Performed By: #### C BC Auto Diff #### [facility] [address] [place] [address] MCH Entitic mass (RBC) 24.7 pg Low 27.0 - 35.0 [facility] Comment on above: Performed By: #### C BC Auto Diff #### [id number] [place] [address] MCHC mass conc (RBC) 31.9 g/dL Low 32.0 - 36.0 [facility] Comment on above: Performed By: #### C BC Auto Diff #### [address] [address] MCV Entitic volume (RBC) 77.4 fL Low 80.0 - 100.0 [facility] Comment on above: Performed By: #### C BC Auto Diff #### [id number] [place] [address] Monocytes/100 WBC (Bld) 7 % Normal 1 - 15 [facility] Comment on above: Performed By: #### C BC Auto Diff #### [id number] [place] [address] Neutrophils/100 WBC (Bld) 62 % Normal 50 - 70 [facility] Comment on above: Performed By: #### C BC Auto Diff #### [id number] [place] [address] Platelet mean volume Entitic volume (Bld) 9.0 fL Normal 7.5 - 11.5 [facility] Comment on above: Performed By: #### C BC Auto Diff #### [address] [place] [address] Platelets #/vol (Bld) 285 uLx10 Normal 150 - 450 [facility] Comment on above: Performed By: #### C BC Auto Diff #### [facility] [address] [place] [address] RBC #/vol (Bld) 5.03 10 X 6/mm Normal 4.20 - 5.40 [facility] Comment on above: Performed By: #### C BC Auto Diff #### [facility] [address] [place] [address] WBC #/vol (Bld) 9.5 10 X 3/mm Normal 3.7 - 11.0 [facility] Comment on above: Performed By: #### C BC Auto Diff #### [facility] [address] [place] [address] CT ABD/PELVIS WOon 9 CT ABD/PELVIS WO [...] electronically signed by: Dr. Fernie Elliott Normal [facility] Comprehensive Metabolic Pane guille 03-18-2019 GFR/1.73 sq M predicted among non-blacks MDRD vol rate/area (S/P/Bld) 125.24 Normal [facility] Comment on above: Result Comment: eGFR Interpretation: Normal: Equal to or greater than 60 mL/min/1.73 meters squared Chronic Kidney Disease: Less than 60 mL/min/1.73 meters squared Kidney Failure: Less than 15 mL/min/1.73 meters squared Performed By: #### L IPASE, CMP, AMYLASE #### [address] [address] GFR/1.73 sq M predicted among non-blacks MDRD vol rate/area (S/P/Bld) 118.9 Normal [facility] Comment on above: Result Comment: eGFR Interpretation: Normal: Equal to or greater than 60 mL/min/1.73 meters squared Chronic Kidney Disease: Less than 60 mL/min/1.73 meters squared Kidney Failure: Less than 15 mL/min/1.73 meters squared Performed By: #### L IPASE, CMP, AMYLASE #### [address] [address] GFR/1.73 sq M predicted among non-blacks MDRD vol rate/area (S/P/Bld) 129.74 Normal [facility] Comment on above: Result Comment: eGFR Interpretation: Normal: Equal to or greater than 60 mL/min/1.73 meters squared Chronic Kidney Disease: Less than 60 mL/min/1.73 meters squared Kidney Failure: Less than 15 mL/min/1.73 meters squared Performed By: #### L IPASE, CMP, AMYLASE #### [address] [address] GFR/1.73 sq M predicted among non-blacks MDRD vol rate/area (S/P/Bld) 192.10 [facility] Comment on above: Performed By: #### L IPASE, CMP, AMYLASE #### [address] [place] [address] GFR/1.73 sq M predicted among non-blacks MDRD vol rate/area (S/P/Bld) 166.17 [facility] Comment on above: Result Comment: eGFR Interpretation: Normal: Equal to or greater than 60 mL/min/1.73 meters squared Chronic Kidney Disease: Less than 60 mL/min/1.73 meters squared Kidney Failure: Less than 15 mL/min/1.73 meters squared Performed By: #### L IPASE, CMP, AMYLASE #### [address] [place] [address] GFR/1.73 sq M predicted among non-blacks MDRD vol rate/area (S/P/Bld) 137.09 [facility] Comment on above: Performed By: #### L IPASE, CMP, AMYLASE #### [address] [place] [address] GFR/1.73 sq M predicted among non-blacks MDRD vol rate/area (S/P/Bld) 144.37 [facility] Comment on above: Performed By: #### L IPASE, CMP, AMYLASE #### [address] [address] GFR/1.73 sq M predicted among non-blacks MDRD vol rate/area (S/P/Bld) 149.98 [facility] Comment on above: Performed By: #### L IPASE, CMP, AMYLASE #### [address] [place] [address] Age Reported 28 year(s) [facility] Comment on above: Performed By: #### L IPASE, CMP, AMYLASE #### [address] [place] [address] Albumin mass conc 4.3 g/dL Normal 3.5 - 5.0 [facility] Comment on above: Performed By: #### L IPASE, CMP, AMYLASE #### [facility] [address] [place] [address] ALP enzyme act/vol 80 U/L Normal 38 - 126 [facility] Comment on above: Performed By: #### L IPASE, CMP, AMYLASE #### [address] [address] ALT enzyme act/vol 28 U/L Normal 0 - 35 [facility] Comment on above: Performed By: #### L IPASE, CMP, AMYLASE #### [address] [address] AST enzyme act/vol 35 U/L Normal 14 - 36 [facility] Comment on above: Performed By: #### L IPASE, CMP, AMYLASE #### [address] [address] Bilirubin mass conc 1.2 mg/dL Normal 0.2 - 1.3 [facility] Comment on above: Performed By: #### L IPASE, CMP, AMYLASE #### [address] [address] Calcium mass conc 9.5 mg/dL Normal 8.4 - 10.2 [facility] Comment on above: Performed By: #### L IPASE, CMP, AMYLASE #### [address] [address] Chloride molar conc 102 mmol/L Normal 98 - 107 [facility] Comment on above: Performed By: #### L IPASE, CMP, AMYLASE #### [address] [address] CO2 molar conc 23 mmol/L Normal 22 - 32 [facility] Comment on above: Performed By: #### L IPASE, CMP, AMYLASE #### [address] [place] [address] Creatinine mass conc 0.66 mg/dL Normal 0.52 - 1.04 [facility] Comment on above: Performed By: #### L IPASE, CMP, AMYLASE #### [address] [address] Glucose mass conc 87 mg/dL Normal 65 - 100 [facility] Comment on above: Performed By: #### L IPASE, CMP, AMYLASE #### [address] [address] Potassium molar conc 4.6 mmol/L Normal 3.6 - 5.0 [facility] Comment on above: Performed By: #### L IPASE, CMP, AMYLASE #### [address] [address] Protein mass conc 7.7 g/dL Normal 6.3 - 8.2 [facility] Comment on above: Performed By: #### L IPASE, CMP, AMYLASE #### [address] [address] Sodium molar conc 136 mmol/L Normal 135 - 145 [facility] Comment on above: Performed By: #### L IPASE, CMP, AMYLASE #### [address] [address] Urea nitrogen mass conc 6 mg/dL Low 7 - 17 [facility] Comment on above: Performed By: #### L IPASE, CMP, AMYLASE #### [address] [address] Lipaseon 03-18-2019 Lipase enzyme act/vol 81 U/L Normal 23 - 300 [facility] Comment on above: Performed By: #### L IPASE, CMP, AMYLASE #### [address] [place] [address] hCG, Qualitative-Serumon Internal Control ACCEPTABLE Normal [facility] Comment on above: Performed By: #### H CG,QUAL SERUM #### [address] [place] [address] hCG, Qualitative-Serum Negative Normal NEGATIVE [facility] Comment on above: Performed By: #### H CG,QUAL SERUM #### [address] [address] Age at specimen collection = Normal [facility] Comment on above: Performed By: #### H CG,QUAL SERUM #### [address] [address] Performed By: #### C BC Auto Diff #### [address] [address] Performed By: #### L IPASE, CMP, AMYLASE #### [address] [address] CBCon 02-26-2019 ABSOLUTE BAS 0.1 X10 Normal [facility] Comment on above: Performed By: #### A CBC ####Testing performed at [address] [address] ABSOLUTE EOS 0.10 X10 Normal [facility] Comment on above: Performed By: #### A CBC ####Testing performed at [address] [address] ABSOLUTE NEUTROPHIL COUNT 6.2 x10 Normal 1.0-7.0 [facility] Comment on above: Performed By: #### A CBC ####Testing performed at [address] [place] [address] Basophils/100 WBC (Bld) 1.2 % Normal 0.0-2.0 [facility] Comment on above: Performed By: #### A CBC ####Testing performed at [address] [address] DTYPE AUTO DIFF Normal [facility] Comment on above: Performed By: #### A CBC ####Testing performed at [address] [address] Eosinophils/100 WBC (Bld) 1.5 % Normal 0.0-11.0 [facility] Comment on above: Performed By: #### A CBC ####Testing performed at [address] [address] Lymphocytes #/vol (Bld) 2.40 X10 Normal [facility] Comment on above: Performed By: #### A CBC ####Testing performed at [address] [address] Lymphocytes/100 WBC (Bld) 25.7 % Normal 20.0-55.0 [facility] Comment on above: Performed By: #### A CBC ####Testing performed at [address] [address] Monocytes #/vol (Bld) 0.5 X10 Normal [facility] Comment on above: Performed By: #### A CBC ####Testing performed at [address] [address] Monocytes/100 WBC (Bld) 5.2 % Normal 0.0-10.0 [facility] Comment on above: Performed By: #### A CBC ####Testing performed at [address] [address] Neutrophils/100 WBC (Bld) 66.4 % Normal 37.0-75.0 [facility] Comment on above: Performed By: #### A CBC ####Testing performed at [address] [address] Erythrocyte distribution width Ratio (RBC) 17.6 % High 11.5-14.5 [facility] Comment on above: Performed By: #### A CBC ####Testing performed at [address] [address] Hematocrit Volume Fraction (Bld) 36.7 % Normal 36.0-48.0 [facility] Comment on above: Performed By: #### A CBC ####Testing performed at [address] [address] Hemoglobin mass conc (Bld) 11.8 g/dL Low 12.0-16.0 [facility] Comment on above: Performed By: #### A CBC ####Testing performed at [address] [address] MCH Entitic mass (RBC) 24.5 pg Low 26.0-35.0 [facility] Comment on above: Performed By: #### A CBC ####Testing performed at [address] [address] MCHC mass conc (RBC) 32.3 g/dL Normal 27.0-37.0 [facility] Comment on above: Performed By: #### A CBC ####Testing performed at [address] [address] MCV Entitic volume (RBC) 75.9 fL Low 80.0-100.0 [facility] Comment on above: Performed By: #### A CBC ####Testing performed at [address] [address] Platelet mean volume Entitic volume (Bld) 8.1 fL Normal 7.4-11.0 [facility] Comment on above: Performed By: #### A CBC ####Testing performed at [address] [address] Platelets #/vol (Bld) 320 /cmm Normal 130.0-400.0 [facility] Comment on above: Performed By: #### A CBC ####Testing performed at [address] [address] RBC #/vol (Bld) 4.83 /cmm Normal 4.0-5.4 [facility] Comment on above: Performed By: #### A CBC ####Testing performed at [address] [address] WBC #/vol (Bld) 9.3 /cmm Normal 3.6-11.0 [facility] Comment on above: Performed By: #### A CBC ####Testing performed at [address] [address] CMP FASTINGon 02-26-2019 A:G RATIO 1.2 RATIO Low 1.3-2.2 [facility] Comment on above: Performed By: #### A CBC ####Testing performed at [address] [address] Albumin mass conc 4.6 G/dl Normal 3.5-5.0 [facility] Comment on above: Performed By: #### A CBC ####Testing performed at [address] [address] ALP enzyme act/vol 85 U/L Normal 38-126 [facility] Comment on above: Performed By: #### A CBC ####Testing performed at [address] [address] ALT enzyme act/vol 17 U/L Normal 9-52 [facility] Comment on above: Performed By: #### A CBC ####Testing performed at [address] [address] AST enzyme act/vol 22 U/L Normal 14-36 [facility] Comment on above: Performed By: #### A CBC ####Testing performed at [address] [place] [address] Bilirubin mass conc 1.0 mg/dL Normal 0.2-1.3 [facility] Comment on above: Performed By: #### A CBC ####Testing performed at [address] [address] Calcium mass conc 9.3 mg/dL Normal 8.4-10.2 [facility] Comment on above: Performed By: #### A CBC ####Testing performed at [address] [address] Chloride molar conc 102 mmol/L Normal 98-107 [facility] Comment on above: Result Comment: Anna Marie willard note: Triglyceride levels of 600mg/dL or higher may positively bias chloride results by approximately 2.1 mmol Performed By: #### A CBC ####Testing performed at [place] [id number] CO2 molar conc 27 mmol/L Normal 22-30 [facility] Comment on above: Performed By: #### A CBC ####Testing performed at [address] [address] Creatinine mass conc 0.8 mg/dL Normal 0.7-1.2 [facility] Comment on above: Performed By: #### A CBC ####Testing performed at [address] [address] EST. GFR, >60 Normal [facility] Comment on above: Performed By: #### A CBC ####Testing performed at [address] [address] EST. GFR,Non >60 Normal [facility] Comment on above: Performed By: #### A CBC ####Testing performed at [address] [address] GFR/1.73 sq M predicted among non-blacks MDRD vol rate/area (S/P/Bld) Average GFR for 30-39 years old = 109. Normal [facility] Comment on above: Result Comment: Child Adolescent Psychiatrist frantz Kidney disease, GFR = <60. Kidney failure, GFR = <15. The GFR estimate is not adjusted for extreme body surface area or acute process, nor has it been validated for women or ethnic groups other than and . Performed By: #### A CBC ####[place] [address] Glucose mass conc 91 mg/dL Normal 70-100 [facility] Comment on above: Result Comment: NORMAL <100 mg/dL PREDIABETES 101-126 mg/dL DIABETES 126 mg/dL or higher Performed By: #### A CBC ####[place] [address] Potassium molar conc 4.0 mmol/L Normal 3.5-5.1 [facility] Comment on above: Performed By: #### A CBC ####Testing performed at [place] [id number] Protein mass conc 8.4 g/dL High 6.3-8.2 [facility] Comment on above: Performed By: #### A CBC ####[place] [address] Sodium molar conc 139 mmol/L Normal 137-145 [facility] Comment on above: Performed By: #### A CBC ####Testing performed at [place] [id number] Urea nitrogen mass conc 8 mg/dL Normal 7-20 [facility] Comment on above: Performed By: #### A CBC ####Testing performed at [address] [address] ESRon 02-26-2019 ESR Velocity (Bld) 59 mm/h High 0-15 [facility] LIPASE,SERUMon 02-26-2019 LIPASE,SERUM 53 U/L Normal 23-300 [facility] Comment on above: Performed By: #### A CBC ####Testing performed at [address] [address] CBCon 02-18-2019 ABSOLUTE BAS 0.1 X10 Normal [facility] Comment on above: Performed By: #### A CBC, CMPF ####Testing performed at [address] [place] [address] ABSOLUTE EOS 0.40 X10 Normal [facility] Comment on above: Performed By: #### A CBC, CMPF ####Testing performed at [address] [place] [address] ABSOLUTE NEUTROPHIL COUNT 5.4 x10 Normal 1.0-7.0 [facility] Comment on above: Performed By: #### A CBC, CMPF ####Testing performed at [address] [place] [address] Basophils/100 WBC (Bld) 0.6 % Normal 0.0-2.0 [facility] Comment on above: Performed By: #### A CBC, CMPF ####Testing performed at [address] [place] [address] DTYPE AUTO DIFF Normal [facility] Comment on above: Performed By: #### A CBC, CMPF ####Testing performed at [address] [place] [address] Eosinophils/100 WBC (Bld) 4.0 % Normal 0.0-11.0 [facility] Comment on above: Performed By: #### A CBC, CMPF ####Testing performed at [address] [place] [address] Lymphocytes #/vol (Bld) 2.30 X10 Normal [facility] Comment on above: Performed By: #### A CBC, CMPF ####Testing performed at [address] [place] [address] Lymphocytes/100 WBC (Bld) 26.0 % Normal 20.0-55.0 [facility] Comment on above: Performed By: #### A CBC, CMPF ####Testing performed at [address] [address] Monocytes #/vol (Bld) 0.6 X10 Normal [facility] Comment on above: Performed By: #### A CBC, CMPF ####Testing performed at [address] [address] Monocytes/100 WBC (Bld) 7.1 % Normal 0.0-10.0 [facility] Comment on above: Performed By: #### A CBC, CMPF ####Testing performed at [address] [address] Neutrophils/100 WBC (Bld) 62.3 % Normal 37.0-75.0 [facility] Comment on above: Performed By: #### A CBC, CMPF ####Testing performed at [place] [id number] Erythrocyte distribution width Ratio (RBC) 17.1 % High 11.5-14.5 [facility] Comment on above: Performed By: #### A CBC, CMPF ####Testing performed at [place] [id number] Hematocrit Volume Fraction (Bld) 36.7 % Normal 36.0-48.0 [facility] Comment on above: Performed By: #### A CBC, CMPF ####Testing performed at [address] [address] Hemoglobin mass conc (Bld) 11.8 g/dL Low 12.0-16.0 [facility] Comment on above: Performed By: #### A CBC, CMPF ####Testing performed at [address] [address] MCH Entitic mass (RBC) 24.5 pg Low 26.0-35.0 [facility] Comment on above: Performed By: #### A CBC, CMPF ####Testing performed at [place] [id number] MCHC mass conc (RBC) 32.2 g/dL Normal 27.0-37.0 [facility] Comment on above: Performed By: #### A CBC, CMPF ####[place] [address] MCV Entitic volume (RBC) 75.9 fL Low 80.0-100.0 [facility] Comment on above: Performed By: #### A CBC, CMPF ####[place] [address] Platelet mean volume Entitic volume (Bld) 8.2 fL Normal 7.4-11.0 [facility] Comment on above: Performed By: #### A CBC, CMPF ####[place] [address] Platelets #/vol (Bld) 283 /cmm Normal 130.0-400.0 [facility] Comment on above: Performed By: #### A CBC, CMPF ####[place] [address] RBC #/vol (Bld) 4.83 /cmm Normal 4.0-5.4 [facility] Comment on above: Performed By: #### A CBC, CMPF ####[place] [address] WBC #/vol (Bld) 8.8 /cmm Normal 3.6-11.0 [facility] Comment on above: Performed By: #### A CBC, CMPF ####[place] [address] CMP FASTINGon 02-18-2019 Potassium molar conc 3.8 mmol/L Normal 3.5-5.1 [facility] Comment on above: Performed By: #### A CBC, CMPF ####Testing performed at [address] [address] A:G RATIO 1.2 RATIO Low 1.3-2.2 [facility] Comment on above: Performed By: #### A CBC, CMPF ####Testing performed at [address] [address] Albumin mass conc 4.6 G/dl Normal 3.5-5.0 [facility] Comment on above: Performed By: #### A CBC, CMPF ####Testing performed at [address] [address] ALP enzyme act/vol 78 U/L Normal 38-126 [facility] Comment on above: Performed By: #### A CBC, CMPF ####Testing performed at [address] [address] ALT enzyme act/vol 18 U/L Normal 9-52 [facility] Comment on above: Performed By: #### A CBC, CMPF ####Testing performed at [address] [address] AST enzyme act/vol 18 U/L Normal 14-36 [facility] Comment on above: Performed By: #### A CBC, CMPF ####Testing performed at [address] [address] Bilirubin mass conc 1.1 mg/dL Normal 0.2-1.3 [facility] Comment on above: Performed By: #### A CBC, CMPF ####Testing performed at [address] [address] Calcium mass conc 9.0 mg/dL Normal 8.4-10.2 [facility] Comment on above: Performed By: #### A CBC, CMPF ####Testing performed at [address] [address] Chloride molar conc 104 mmol/L Normal 98-107 [facility] Comment on above: Result Comment: Anna Marie willard note: Triglyceride levels of 600mg/dL or higher may positively bias chloride results by approximately 2.1 mmol Performed By: #### A CBC CMPF ####Testing performed at [address] [address] CO2 molar conc 26 mmol/L Normal 22-30 [facility] Comment on above: Performed By: #### A CBC, CMPF ####Testing performed at [address] [address] Creatinine mass conc 1.1 mg/dL Normal 0.7-1.2 [facility] Comment on above: Performed By: #### A CBC CMPF ####Testing performed at [address] [address] EST. GFR, >60 Normal [facility] Comment on above: Performed By: #### A CBC CMPF ####Testing performed at [address] [address] EST. GFR,Non >60 Normal [facility] Comment on above: Performed By: #### A CBC CMPF ####Testing performed at [address] [address] GFR/1.73 sq M predicted among non-blacks MDRD vol rate/area (S/P/Bld) Average GFR for 30-39 years old = 109. Normal [facility] Comment on above: Result Comment: Child Adolescent Psychiatrist frantz Kidney disease, GFR = <60. Kidney failure, GFR = <15. The GFR estimate is not adjusted for extreme body surface area or acute process, nor has it been validated for women or ethnic groups other than and . Performed By: #### A CBC, CMPF ####Testing performed at [address] [address] Glucose mass conc 79 mg/dL Normal 70-100 [facility] Comment on above: Result Comment: NORMAL <100 mg/dL PREDIABETES 101-126 mg/dL DIABETES 126 mg/dL or higher Performed By: #### A CBC, CMPF ####Testing performed at [place] [id number] Protein mass conc 8.3 g/dL High 6.3-8.2 [facility] Comment on above: Performed By: #### A CBC, CMPF ####Testing performed at [place] [id number] Sodium molar conc 142 mmol/L Normal 137-145 [facility] Comment on above: Performed By: #### A CBC, CMPF ####[place] [address] Urea nitrogen mass conc 6 mg/dL Low 7-20 [facility] Comment on above: Performed By: #### A CBC, CMPF ####[place] [address] CT ABDOMEN/PELVIS WITHOUT CO NTRASTon 02-18-2019 CT [...] abdomen and pelvis. 3. Prior cholecystectomy. Normal [facility] ESRon 02-18-2019 ESR Velocity (Bld) 49 mm/h High 0-15 [facility] Comment on above: Performed By: #### E SR ####Testing performed at [address] [address] URINE CULTUREon 02-18-2019 Bacteria identified Cx Nom (U) SPECIMEN DESCRIPTION URINE CLEAN CATCH UA DIPSTICK LEUKOCYTE POSITIVE * Result Note: NITRITE NEGATIVE * CULTURE NO GROWTH 1 DAY * Result Note: Testing performed at [place] [address] * REPORT STATUS PENDING Normal [facility] Comment on above: Performed By: #### A URNC ####Testing performed at [place] [id number] performed at [address] [address] URINE HCG QUALon 02-18-2019 HCG.beta subunit ( test) Ql (U) Negative Normal [facility] Comment on above: Performed By: #### U HCGT ####Testing performed at [address] [address] URINE MACROSCOPICon 02-19-20 19 Bilirubin Ql (U) Negative Normal NEGATIVE [facility] Comment on above: Performed By: #### U HCGT ####Testing performed at [address] [address] Clarity Nom (U) CLEAR Normal CLEAR [facility] Comment on above: Performed By: #### U HCGT ####Testing performed at [address] [address] Color Nom (U) YELLOW Normal YELLOW [facility] Comment on above: Performed By: #### U HCGT ####Testing performed at [address] [address] Glucose Ql (U) Negative Normal NEGATIVE [facility] Comment on above: Performed By: #### U HCGT ####Testing performed at [address] [address] pH (U) 5.5 [pH] Normal 5.0-7.0 [facility] Comment on above: Performed By: #### U HCGT ####Testing performed at [address] [address] Protein mass conc (U) Negative Normal NEGATIVE [facility] Comment on above: Performed By: #### U HCGT ####Testing performed at [address] [address] URINE HEMOGLOBIN TRACE-LYSED Abnormal NEGATIVE [facility] Comment on above: Performed By: #### U HCGT ####Testing performed at [address] [address] URINE KETONE Negative Normal NEGATIVE [facility] Comment on above: Performed By: #### U HCGT ####Testing performed at [address] [address] URINE LEUKOTEST TRACE Abnormal NEGATIVE [facility] Comment on above: Performed By: #### U HCGT ####Testing performed at [address] [address] URINE NITRATES Negative Normal NEGATIVE [facility] Comment on above: Performed By: #### U HCGT ####Testing performed at [address] [address] URINE SPEC GRAVITY 1.020 Normal 1.010-1.025 [facility] Comment on above: Performed By: #### U HCGT ####Testing performed at [address] [address] Urobilinogen Qn (U) 0.2 mg/dl Normal 0.2-1.0 [facility] Comment on above: Performed By: #### U HCGT ####Testing performed at [address] [address] URINE MICROSCOPICon 02-19-20 19 Bacteria LM.HPF #/area (Urine sed) TRACE Abnormal NEGATIVE [facility] Comment on above: Performed By: #### U HCGT ####Testing performed at [address] [address] Casts LM.LPF #/area (Urine sed) NONE Normal NONE [facility] Comment on above: Performed By: #### U HCGT ####Testing performed at [address] [address] CRYSTAL NONE Normal [facility] Comment on above: Performed By: #### U HCGT ####Testing performed at [address] [address] Epithelial cells LM.HPF #/area (Urine sed) 1 TO 5 Normal [facility] Comment on above: Performed By: #### U HCGT ####Testing performed at [address] [address] Mucus Ql (Urine sed) Negative Normal NEGATIVE [facility] Comment on above: Performed By: #### U HCGT ####Testing performed at [address] [address] RBC #/vol (U) 1 TO 5 Normal NEGATIVE [facility] Comment on above: Performed By: #### U HCGT ####Testing performed at [address] [address] URINE COMMENT REFLEX CULTURE PER ESTABLISHED CRITERIA. Normal [facility] Comment on above: Performed By: #### U HCGT ####Testing performed at [address] [address] WBC #/vol (U) 1 TO 5 Normal NEGATIVE [facility] Comment on above: Performed By: #### U HCGT ####Testing performed at [address] [address] Organism ID w/ Sension [id number] Organism ID w/ Sensi Specimen Descriptio n .FECES Special Requests NOT REPORTED Culture NO SHIGELLA SP. ISOLATED Nucleic acid detected, but organism was not recovered in culture. Susceptibility testing cannot be performed. Report Status FINAL 02/08/2019 Normal [facility] Comment on above: Performed By: #### C DP #### [address] [address] #### GERRY KIM #### [address] [place] [address] Stool PCR B[place]yon 02-10-20 19 Shigella sp PCR Positive Abnormal SHINEG [facility] Comment on above: Result Comment: Analytical [...] performed. Performed By: #### C DP #### [address] [address] #### JULIO BMP #### [address] [place] [address] CBC with Diffon 02-08-2019 Abs. Basophil 0.04 k/uL Normal 0.00-0.[address] [facility] Comment on above: Performed By: #### C DP #### [address] [address] #### JULIO BMP #### [address] [place] [address] Abs.Imm.Granulocyte 0.05 k/uL Normal 0.00-0.30 [facility] Comment on above: Performed By: #### C DP #### [address] [address] #### TROPI, BMP #### [address] [place] [address] Abs.Neutrophil (Seg) 5.19 k/uL Normal 1.50-8.10 [facility] Comment on above: Performed By: #### C DP #### [address] [address] #### TROPI, BMP #### [address] [place] [address] Basophils/100 WBC (Bld) 1 % Normal 0-2 [facility] Comment on above: Performed By: #### C DP #### [address] [address] #### TROPI, BMP #### [address] [place] [address] Eosinophils #/vol (Bld) 10*3/uL Normal 0.00-0.44 [facility] Comment on above: Performed By: #### C DP #### [address] [address] #### TROPI, BMP #### [address] [place] [address] Eosinophils/100 WBC (Bld) 0 % Low 1-4 [facility] Comment on above: Performed By: #### C DP #### [address] [address] #### TROPI, BMP #### [address] [place] [address] Erythrocyte distribution width Ratio (RBC) 15.6 % High 11.8-14.4 [facility] Comment on above: Performed By: #### C DP #### [address] [address] #### TROPI, BMP #### [address] [place] [address] Hematocrit Volume Fraction (Bld) 37.1 % Normal 36.3-47.1 [facility] Comment on above: Performed By: #### C DP #### [address] [address] #### TROPI, BMP #### [address] [place] [address] Hemoglobin mass conc (Bld) 11.2 g/dL Low 11.9-15.1 [facility] Comment on above: Performed By: #### C DP #### [address] [address] #### TROPI, BMP #### [address] [place] [address] Immature granulocytes #/vol (Bld) 1 % High 0 [facility] Comment on above: Performed By: #### C DP #### [address] [address] #### TROPI, BMP #### [address] [place] [address] Lymphocytes #/vol (Bld) 2.13 10*3/uL Normal 1.10-3.70 [facility] Comment on above: Performed By: #### C DP #### [address] [address] #### TROPI, BMP #### [address] [place] [address] Lymphocytes/100 WBC (Bld) 27 % Normal 24-43 [facility] Comment on above: Performed By: #### C DP #### [address] [address] #### TROPI, BMP #### [address] [place] [id number] MCH Entitic mass (RBC) 24.3 pg Low 25.2-33.5 [facility] Comment on above: Performed By: #### C DP #### [address] [address] #### TROPI, BMP #### [address] [place] [address] MCHC mass conc (RBC) 30.2 g/dL Normal 28.4-34.8 [facility] Comment on above: Performed By: #### C DP #### [address] [address] #### TROPI, BMP #### [address] [place] [address] MCV Entitic volume (RBC) 80.7 fL Low 82.6-102.9 [facility] Comment on above: Performed By: #### C DP #### [address] [address] #### TROPI, BMP #### [address] [place] [address] Monocytes #/vol (Bld) 0.45 10*3/uL Normal 0.10-1.20 [facility] Comment on above: Performed By: #### C DP #### [address] [address] #### TROPI, BMP #### [address] [place] [address] Monocytes/100 WBC (Bld) 6 % Normal 3-12 [facility] Comment on above: Performed By: #### C DP #### [address] [address] #### TROPI, BMP #### [address] [place] [address] Neutrophil (Seg) 65 % Normal 36-65 [facility] Comment on above: Performed By: #### C DP #### [address] [address] #### TROPI, BMP #### [address] [place] [address] NRBC Automated 0.0 per 100 WBC Normal 0.0 [facility] Comment on above: Performed By: #### C DP #### [address] [address] #### TROPI, BMP #### [address] [place] [address] Platelet mean volume Entitic volume (Bld) 10.5 fL Normal 8.1-13.[address] [facility] Comment on above: Performed By: #### C DP #### [address] [address] #### TROPI, BMP #### [address] [place] [address] Platelets #/vol (Bld) 258 10*3/uL Normal 138-453 [facility] Comment on above: Performed By: #### C DP #### [address] [address] #### TROPI, BMP #### [address] [place] [address] RBC #/vol (Bld) 4.60 10*6/uL Normal 3.95-5.11 [facility] Comment on above: Performed By: #### C DP #### [address] [address] #### TROPI, BMP #### [address] [place] [address] WBC #/vol (Bld) 7.9 10*3/uL Normal 3.5-11.3 [facility] Comment on above: Performed By: #### C DP #### [address] [address] #### TROPI, BMP #### [address] [place] [address] Auto Diff Performed NOT REPORTED Normal [facility] Comment on above: Performed By: #### C DP #### [address] [address] #### TROPI, BMP #### [address] [place] [address] Platelets #/vol (Bld) NOT REPORTED Normal [facility] Comment on above: Performed By: #### C DP #### [address] [address] #### TROPI, BMP #### [address] [place] [address] RBC morphology finding Nom (Bld) NOT REPORTED Normal [facility] Comment on above: Performed By: #### C DP #### [address] [address] #### TROPI, BMP #### [address] [place] [address] WBC Morphology NOT REPORTED Normal [facility] Comment on above: Performed By: #### C DP #### [address] [address] #### TROPI, BMP #### [address] [place] [address] Comp Metabolic Pr/rfx MGon 0 02-08-2019 Potassium molar conc 3.5 mmol/L Low 3.7-5.3 [facility] Comment on above: Performed By: #### C DP #### [address] [address] #### TROPI, BMP #### [address] [place] [address] (cont.) Normal [facility] Comment on above: Result Comment: Aver age GFR for 30-39 years old: 107 mL/min/1.73sq m Chronic Kidney Disease: <60 mL/min/1.73sq m Kidney failure: <15 mL/min/1.73sq m eGFR calculated using average adult body mass. Additional eGFR calculator available at: http://[email or web address]/multiple_crcl_2012.htm Performed By: #### C DP #### [address] [address] #### TROPI, BMP #### [address] [place] [address] Albumin mass conc 4.0 g/dL Normal 3.5-5.2 [facility] Comment on above: Performed By: #### C DP #### [address] [address] #### TROPI, BMP #### [address] [place] [address] Albumin/Globulin mass ratio 1.2 {ratio} Normal 1.0-2.5 [facility] Comment on above: Performed By: #### C DP #### [address] [address] #### TROPI, BMP #### [address] [place] [address] Alkaline Phos 88 U/L Normal 35-[address] [facility] Comment on above: Performed By: #### C DP #### [address] [address] #### TROPI, BMP #### [address] [place] [address] ALT enzyme act/vol 9 U/L Normal 5-33 [facility] Comment on above: Performed By: #### C DP #### [address] [address] #### TROPI, BMP #### [address] [place] [address] Anion gap molar conc 11 mmol/L Normal 9-17 [facility] Comment on above: Performed By: #### C DP #### [address] [address] #### TROPI, BMP #### [address] [place] [address] AST enzyme act/vol 10 U/L Normal <32 [facility] Comment on above: Performed By: #### C DP #### [address] [address] #### TROPI, BMP #### [address] [place] [address] Bilirubin Ql (U) 0.66 mg/dL Normal 0.3-1.2 [facility] Comment on above: Performed By: #### C DP #### [address] [address] #### TROPI, BMP #### [address] [place] [address] BUN/CRE Ratio 11 Normal 9-[address] [facility] Comment on above: Performed By: #### C DP #### [address] [address] #### TROPI, BMP #### [address] [place] [address] Calcium mass conc 9.4 mg/dL Normal 8.6-10.4 [facility] Comment on above: Performed By: #### C DP #### [address] [address] #### TROPI, BMP #### [address] [place] [address] Chloride molar conc 104 mmol/L Normal 98-107 [facility] Comment on above: Performed By: #### C DP #### [address] [address] #### TROPI, BMP #### [address] [place] [address] CO2 molar conc 26 mmol/L Normal 20-31 [facility] Comment on above: Performed By: #### C DP #### [address] [address] #### TROPI, BMP #### [address] [place] [address] Creatinine mass conc 0.74 mg/dL Normal 0.50-0.90 [facility] Comment on above: Performed By: #### C DP #### [address] [address] #### TROPI, BMP #### [address] [place] [address] GFR, Amer >60 Normal >60 [facility] Comment on above: Performed By: #### C DP #### [address] [address] #### TROPI, BMP #### [address] [place] [address] GFR,non Amer >60 Normal >60 [facility] Comment on above: Performed By: #### C DP #### [address] [address] #### TROPI, BMP #### [address] [place] [address] Glucose mass conc 115 mg/dL High 70-99 [facility] Comment on above: Performed By: #### C DP #### [address] [address] #### TROPI, BMP #### [address] [place] [address] Protein mass conc 7.3 g/dL Normal 6.4-8.3 [facility] Comment on above: Performed By: #### C DP #### [address] [address] #### TROPI, BMP #### [address] [place] [address] Sodium molar conc 141 mmol/L Normal 135-144 [facility] Comment on above: Performed By: #### C DP #### [address] [address] #### TROPI, BMP #### [address] [place] [address] Staging: Normal [facility] Comment on above: Result Comment: Stag e 1: Some kidney damage normal GFR Stage 2: Mild kidney damage GFR 60-89 Stage 3: Moderate kidney damage GFR 30-59 Stage 4: Severe kidney damage GFR 15-29 Stage 5: Severe kidney damage GFR <15 ESRD - chronic treatment by dialysis or transplant Performed By: #### C DP #### [place] [address] [place] [address] #### TROPI, BMP #### [address] [place] [address] Urea nitrogen mass conc 8 mg/dL Normal 6-20 [facility] Comment on above: Performed By: #### C DP #### [address] [address] #### TROPI, BMP #### [address] [place] [address] HCG, ,Urineon 02-08 HCG.beta subunit ( test) Ql (U) Negative Normal NEG [facility] Comment on above: Result Comment: Spec imens with hCG levels near the threshold of the test (25 mIU/mL) may give a negative or indeterminate result. In such cases, another test should be performed with a new specimen in 48-72 hours. If early is suspected clinically in this setting, correlation with quantitative serum b-hCG level is suggested. [facility] has confirmed the use of plasma for this test. This has not been cleared or approved by the [place]. Food and Drug Administration. The FDA has determined that such clearance is not necessary. Performed By: #### C DP #### [place] [address] [place] [address] #### TROPI, BMP #### [address] [place] [address] Magnesiumon 02-08-2019 Magnesium mass conc 2.0 mg/dL Normal 1.6-2.6 [facility] Comment on above: Performed By: #### C DP #### [address] [address] #### TROPI, BMP #### [address] [place] [address] Sedimentation Rateon 019 Sedimentation Rate 36 mm High 0-20 [facility] Comment on above: Performed By: #### C DP #### [address] [address] #### TROPI, BMP #### [address] [place] [address] Urinalysis, Routineon 2018 Acetoacetic Acid,Ur Negative Normal NEG [facility] Comment on above: Performed By: #### C DP #### [address] [address] #### TROPI, BMP #### [address] [place] [address] Bilirubin, SemiQt,Ur Negative Normal NEG [facility] Comment on above: Performed By: #### C DP #### [address] [address] #### TROPI, BMP #### [address] [place] [address] Color Nom (U) YELLOW Normal YEL [facility] Comment on above: Performed By: #### C DP #### [address] [address] #### TROPI, BMP #### [address] [place] [address] Glucose,Semi-qnt,Ur Negative Normal NEG [facility] Comment on above: Performed By: #### C DP #### [address] [address] #### TROPI, BMP #### [address] [place] [address] Hemoglobin, Ur Negative Normal NEG [facility] Comment on above: Performed By: #### C DP #### [address] [address] #### TROPI, BMP #### [address] [place] [address] Leuckocyte Esterase TRACE Abnormal NEG [facility] Comment on above: Performed By: #### C DP #### [address] [address] #### TROPI, BMP #### [address] [place] [address] Nitrite,Ur Negative Normal NEG [facility] Comment on above: Performed By: #### C DP #### [address] [address] #### TROPI, BMP #### [address] [place] [address] PH,Ur 6.0 Normal 5.0-9.0 [facility] Comment on above: Performed By: #### C DP #### [address] [address] #### TROPI, BMP #### [address] [place] [address] Protein mass conc (U) Negative Normal NEG [facility] Comment on above: Performed By: #### C DP #### [address] [address] #### TROPI, BMP #### [address] [place] [address] Spec. [place],Ur <1.005 Low 1.010-1.020 [facility] Comment on above: Performed By: #### C DP #### [address] [place] [address] #### TROPI, BMP #### [address] [place] [address] Turbidity CLEAR Normal CLEAR [facility] Comment on above: Performed By: #### C DP #### [address] [address] #### TROPI, BMP #### [address] [place] [address] Urobilinogen,Ur Normal Normal NORM [facility] Comment on above: Performed By: #### C DP #### [address] [address] #### TROPI, BMP #### [address] [place] [address] Comment NOT REPORTED Normal [facility] Comment on above: Performed By: #### C DP #### [address] [address] #### TROPI, BMP #### [address] [place] [address] Urinalysis,Microon 9 ----- Normal [facility] Comment on above: Performed By: #### C DP #### [address] [address] #### TROPI, BMP #### [address] [place] [address] Bacteria LM.HPF #/area (Urine sed) TRACE Abnormal NONE [facility] Comment on above: Performed By: #### C DP #### [address] [address] #### TROPI, BMP #### [address] [place] [address] Epithelial cells LM.HPF #/area (Urine sed) 5 TO 10 Normal 0-25 [facility] Comment on above: Performed By: #### C DP #### [address] [address] #### TROPI, BMP #### [address] [place] [address] RBC #/vol (U) 0 TO 2 Normal 0-[address] [facility] Comment on above: Performed By: #### C DP #### [address] [address] #### TROPI, BMP #### [address] [place] [address] WBC #/vol (U) 0 TO 2 Normal 0-[address] [facility] Comment on above: Performed By: #### C DP #### [address] [address] #### TROPI, BMP #### [address] [place] [address] Amorphous sediment LM Ql (Urine sed) NOT REPORTED Normal [facility] Comment on above: Performed By: #### C DP #### [address] [address] #### TROPI, BMP #### [address] [place] [address] Casts LM.LPF #/area (Urine sed) NOT REPORTED Normal [facility] Comment on above: Performed By: #### C DP #### [address] [address] #### TROPI, BMP #### [address] [place] [address] Crystals LM Nom (Urine sed) NOT REPORTED Normal [facility] Comment on above: Performed By: #### C DP #### [address] [address] #### TROPI, BMP #### [address] [place] [address] Epithelial, Renal NOT REPORTED Normal 0 [facility] Comment on above: Performed By: #### C DP #### [address] [address] #### TROPI, BMP #### [address] [place] [address] Mucus Strands NOT REPORTED Normal NONE [facility] Comment on above: Performed By: #### C DP #### [address] [address] #### TROPI, BMP #### [address] [place] [address] Other Observations NOT REPORTED Normal NREQ [facility] Comment on above: Performed By: #### C DP #### [address] [address] #### TROPI, BMP #### [address] [place] [address] Trichomonas NOT REPORTED Normal NONE [facility] Comment on above: Performed By: #### C DP #### [address] [address] #### TROPI, BMP #### [address] [place] [address] Yeast LM Ql (Urine sed) NOT REPORTED Normal NONE [facility] Comment on above: Performed By: #### C DP #### [address] [address] #### TROPI, BMP #### [address] [place] [address] Stool PCR B[place] 02-06-20 19 Campylobacter sp PCR NEGATIVE: No Campylobacter spp. (jejuni or coli) DNA Detected Normal CAMNEG [facility] Comment on above: Performed By: #### C DP #### [address] [address] #### TROPI, BMP #### [address] [place] [address] E coli enterotox PCR NEGATIVE: No Enterotoxigenic E. coli (ETEC) Heat-labile and heat-stable (LT/ST) Normal EECNEG [facility] Comment on above: Result Comment: DNA Detected Performed By: #### C DP #### [address] [address] #### TROPI, BMP #### [address] [place] [address] Plesiomonas sp PCR Negative Normal PLENEG [facility] Comment on above: Performed By: #### C DP #### [address] [address] #### TROPI, BMP #### [address] [place] [address] Salmonella sp PCR Negative Normal SALNEG [facility] Comment on above: Performed By: #### C DP #### [address] [address] #### TROPI, BMP #### [address] [place] [address] Shigatoxin gene PCR Negative Normal STXNEG [facility] Comment on above: Performed By: #### C DP #### [address] [address] #### TROPI, BMP #### [address] [place] [address] Vibrio sp PCR NEGATIVE: No Vibrio (V. vulnificus, V, parahaemolyticus and V. cholerae) DNA Normal VIBNEG [facility] Comment on above: Result Comment: Dete cted Performed By: #### C DP #### [address] [address] #### TROPI, BMP #### [address] [place] [address] Yersinia gene PCR Negative Normal YERNEG [facility] Comment on above: Performed By: #### C DP #### [address] [address] #### TROPI, BMP #### [address] [place] [address] C diff Ag + Toxinon 02-05-20 19 C diff Ag + Toxin Negative Normal [facility] Comment on above: Performed By: #### C DP #### [address] [address] #### TROPI, BMP #### [address] [place] [address] Specimen Description .FECES Normal [facility] Comment on above: Performed By: #### C DP #### [address] [address] #### TROPI, BMP #### [address] [place], [place] [address] CBCon 02-04-2019 Erythrocyte distribution width Ratio (RBC) 15.9 % High 11.8-14.4 [facility] Comment on above: Performed By: #### C P, CBC #### [facility] [address] [place] [address] [place] [address] Ditch Tender: Eddi Desai MD Hematocrit Volume Fraction (Bld) 36.8 % Normal 36.3-47.1 [facility] Comment on above: Performed By: #### C P, CBC #### [facility] [address] [place] [address] Ditch Tender: Eddi Desai MD Hemoglobin mass conc (Bld) 11.2 g/dL Low 11.9-15.1 [facility] Comment on above: Performed By: #### C P, CBC #### [facility] [address] [place] [address] Ditch Tender: Eddi Desai MD MCH Entitic mass (RBC) 24.1 pg Low 25.2-33.5 [facility] Comment on above: Performed By: #### C P, CBC #### [address] [place] [address] Ditch Tender: Eddi Desai MD MCHC mass conc (RBC) 30.4 g/dL Normal 28.4-34.8 [facility] Comment on above: Performed By: #### C P, CBC #### [address] [place], [place] [address] Ditch Tender: Eddi Desai MD MCV Entitic volume (RBC) 79.3 fL Low 82.6-102.9 [facility] Comment on above: Performed By: #### C P, CBC #### [facility] [address] [place] [address] Ditch Tender: Eddi Desai MD NRBC Automated 0.0 per 100 WBC Normal 0.0 [facility] Comment on above: Performed By: #### C P, CBC #### [facility] [address] [place] [address] Ditch Tender: Eddi Desai MD Platelet mean volume Entitic volume (Bld) 10.4 fL Normal 8.1-13.[address] [facility] Comment on above: Performed By: #### C P, CBC #### [facility] [address] [place] [address] Ditch Tender: Eddi Desai MD Platelets #/vol (Bld) 278 10*3/uL Normal 138-453 [facility] Comment on above: Performed By: #### C P, CBC #### [facility] [address] [place], [place] [id number] Ditch Tender: Eddi Desai MD RBC #/vol (Bld) 4.64 10*6/uL Normal 3.95-5.11 [facility] Comment on above: Performed By: #### C P, CBC #### [facility] [address] [place], [place] 985[address]83 Ditch Tender: Eddi Desai MD WBC #/vol (Bld) 11.8 10*3/uL High 3.5-11.3 [facility] Comment on above: Performed By: #### C P, CBC #### [facility] [address] [place], [place] [id number] Ditch Tender: Eddi Desai MD Comp Metabolic Profon 2018 (cont.) [facility] Comment on above: Result Comment: Aver age GFR for 30-39 years old: 107 mL/min/1.73sq m Chronic Kidney Disease: <60 mL/min/1.73sq m Kidney failure: <15 mL/min/1.73sq m eGFR calculated using average adult body mass. Additional eGFR calculator available at: http://[email or web address]/multiple_[email or web address].htm Performed By: #### C P, CBC #### [facility] [address] [place], [place] [id number] Ditch Tender: Eddi Desai MD Albumin mass conc 3.9 g/dL Normal 3.5-5.2 [facility] Comment on above: Performed By: #### C P, CBC #### [facility] [address] [place], [place] 0[address]83 Ditch Tender: Eddi Desai MD Albumin/Globulin mass ratio 1.1 {ratio} Normal 1.0-2.5 [facility] Comment on above: Performed By: #### C P, CBC #### [facility] [address] [place], [place] [id number] Ditch Tender: Eddi Desai MD Alkaline Phos 83 U/L Normal 35-[address] [facility] Comment on above: Performed By: #### C P, CBC #### [facility] [address] [place], [place] 454[address]83 Ditch Tender: Eddi Desai MD ALT enzyme act/vol 12 U/L Normal 5-33 [facility] Comment on above: Performed By: #### C P, CBC #### [facility] [address] [place], [place] 1238683 Ditch Tender: Eddi Desai MD Anion gap molar conc 14 mmol/L Normal 9-17 [facility] Comment on above: Performed By: #### C P, CBC #### [facility] [address] [place], [place] 8098383 Ditch Tender: Eddi Desai MD AST enzyme act/vol 12 U/L Normal <32 [facility] Comment on above: Performed By: #### C P, CBC #### [facility] [address] [place], [place] 9[address]83 Ditch Tender: Eddi Desai MD Bilirubin Ql (U) 0.55 mg/dL Normal 0.3-1.2 [facility] Comment on above: Performed By: #### C P, CBC #### [facility] [address] [place], [place] [id number] Ditch Tender: Eddi Desai MD BUN/CRE Ratio 13 Normal 9-[address] [facility] Comment on above: Performed By: #### C P, CBC #### [facility] [address] [place], [place] [id number] Ditch Tender: Eddi Desai MD Calcium mass conc 9.3 mg/dL Normal 8.6-10.4 [facility] Comment on above: Performed By: #### C P, CBC #### [facility] [address] [place], [place] 7[address]83 Ditch Tender: Eddi Desai MD Chloride molar conc 103 mmol/L Normal 98-107 [facility] Comment on above: Performed By: #### C P, CBC #### [facility] [address] [place], [place] 2434483 Ditch Tender: Eddi Desai MD CO2 molar conc 22 mmol/L Normal 20-31 [facility] Comment on above: Performed By: #### C P, CBC #### [facility] [address] [place] [address] Ditch Tender: Eddi Desai MD Creatinine mass conc 0.80 mg/dL Normal 0.50-0.90 [facility] Comment on above: Performed By: #### C P, CBC #### [facility] [address] [place], [place] 7972183 Ditch Tender: Eddi Desai MD GFR, Amer >60 Normal >60 [facility] Comment on above: Performed By: #### C P, CBC #### [facility] [address] [place], [place] 1233483 Ditch Tender: Eddi Desai MD GFR,non Amer >60 Normal >60 [facility] Comment on above: Performed By: #### C P, CBC #### [facility] [address] [place] [address] Ditch Tender: Eddi Desai MD Glucose mass conc 99 mg/dL Normal 70-99 [facility] Comment on above: Performed By: #### C P, CBC #### [facility] [address] [place], [place] [id number] Ditch Tender: Eddi Desai MD Potassium molar conc 3.5 mmol/L Low 3.7-5.3 [facility] Comment on above: Performed By: #### C P, CBC #### [facility] [address] [place], [place] 46[address]83 Ditch Tender: Eddi Desai MD Protein mass conc 7.5 g/dL Normal 6.4-8.3 [facility] Comment on above: Performed By: #### C P, CBC #### [facility] [address] [place], [place] [address] Ditch Tender: Eddi Desai MD Sodium molar conc 139 mmol/L Normal 135-144 [facility] Comment on above: Performed By: #### C P, CBC #### [address] [place], [facility] Ditch Tender: Eddi Desai MD Staging: Normal [facility] Comment on above: Result Comment: Stag e 1: Some kidney damage normal GFR Stage 2: Mild kidney damage GFR 60-89 Stage 3: Moderate kidney damage GFR 30-59 Stage 4: Severe kidney damage GFR 15-29 Stage 5: Severe kidney damage GFR <15 ESRD - chronic treatment by dialysis or transplant Performed By: #### C P, CBC #### [address] [place], [facility] Ditch Tender: Eddi Desai MD Urea nitrogen mass conc 10 mg/dL Normal 6-20 [facility] Comment on above: Performed By: #### C P, CBC #### [facility] [address] [place] [address] Ditch Tender: Eddi Desai MD Drug Scr, Abuse, Uron 2018 Amphetamine(s),Ur Negative Normal NEG [facility] Comment on above: Performed By: #### U HCG, LANE, UMICAO, UAX #### [facility] [address] [place], [place] [address] Ditch Tender: Eddi Desai MD Barbiturate(s),Ur Negative Normal [facility] Comment on above: Performed By: #### U HCG, LANE, UMICAO, UAX #### [facility] [address] [place] [address] Ditch Tender: Eddi Desai MD Base excess Calculated molar conc (Bld) Negative [facility] Comment on above: Performed By: #### U HCG, LANE, UMICAO, UAX #### [facility] [address] [place] [address] Ditch Tender: Eddi Desai MD Benzodiazepine(s) Negative Normal [facility] Comment on above: Performed By: #### U HCG, LANE, UMICAO, UAX #### [address] [place] [address]83 Ditch Tender: Eddi Desai MD Buprenorphrine, Ur Negative Normal [facility] Comment on above: Performed By: #### U HCG, LANE, UMICAO, UAX #### [address] [place] [address]83 Ditch Tender: Eddi Desai MD Cannabinoid(s),Ur Positive Abnormal NEG [facility] Comment on above: Performed By: #### U HCG, LANE, UMICAO, UAX #### [facility] [address] [place] [address] [address] [place], [place] [id number] Ditch Tender: Eddi Desai MD Methadone Ql (U) Negative Normal [facility] Comment on above: Performed By: #### U HCG, LANE, UMICAO, UAX #### [facility] [address] [place], [place] [address] Ditch Tender: Eddi Desai MD Methamphetamine, Ur Negative Normal [facility] Comment on above: Performed By: #### U HCG, LANE, UMICAO, UAX #### [facility] [address] [place], [place] 8245283 Ditch Tender: Eddi Desai MD Opiate(s), Ur Negative Normal NEG [facility] Comment on above: Performed By: #### U HCG, LANE, UMICAO, UAX #### [facility] [address] [place], [place] [address]83 Ditch Tender: Eddi Desai MD Oxycodone, Urine Negative Normal NEG [facility] Comment on above: Performed By: #### U HCG, LANE, UMICAO, UAX #### [facility] [address] [place], [place] [address]87883 Ditch Tender: Eddi Deasi MD Phencyclidine, Ur Negative Normal [facility] Comment on above: Performed By: #### U HCG, LANE, UMICAO, UAX #### [facility] [address] [place], [place] 532[address]83 Ditch Tender: Eddi Desai MD Protein mass conc (U) Negative [facility] Comment on above: Performed By: #### U HCG, LANE, UMICAO, UAX #### [facility] [address] [place], [place] 674[address]83 Ditch Tender: Eddi Desai MD Tricyclic antidepressants Screen Ql (U) Negative [facility] Comment on above: Result Comment: Drug screen results are to be used for medical purposes only. All positive results are unconfirmed. Testing for employment or legal uses should be sent to a reference laboratory for confirmation. Performed By: #### U HCG, LANE, UMICAO, UAX #### [facility] [address] [place] [address] Ditch Tender: Eddi Desai MD Interpretive Info NOT REPORTED [facility] Comment on above: Performed By: #### U HCG, LANE, UMICAO, UAX #### [facility] [address] [place] [address] Ditch Tender: Eddi Desai MD MDMA, Urine NOT REPORTED Normal NEG [facility] Comment on above: Performed By: #### U HCG, LANE, UMICAO, UAX #### [facility] [address] [place] [address] Ditch Tender: Eddi Desai MD HCG, ,Urineon 02-04 HCG.beta subunit ( test) Ql (U) Negative Normal NEG [facility] Comment on above: Result Comment: Spec imens with hCG levels near the threshold of the test (25 mIU/mL) may give a negative or indeterminate result. In such cases, another test should be performed with a new specimen in 48-72 hours. If early is suspected clinically in this setting, correlation with quantitative serum b-hCG level is suggested. [facility] has confirmed the use of plasma for this test. This has not been cleared or approved by the U.[place]. Food and Drug Administration. The FDA has determined that such clearance is not necessary. Performed By: #### U HCG, LANE, GINAICAO, UAX #### [facility] [address] [place] [address] Ditch Tender: Eddi Desai MD Lactic Acidon 02-04-2019 Lactate molar conc 1.5 mmol/L Normal 0.5-2.2 [facility] Comment on above: Performed By: #### L ACTIC #### [facility] [address] [place] [address] Ditch Tender: Eddi Desai MD Lactate molar conc NOT REPORTED Normal 0.7-2.1 [facility] Comment on above: Performed By: #### L ACTIC #### [facility] [address] [place] [address] Ditch Tender: Eddi Desai MD UA w/Reflex Cultureon 2018 Acetoacetic Acid,Ur Negative Normal NEG [facility] Comment on above: Performed By: #### U HCG, LANE, UMICAO, UAX #### [facility] [address] [place] [address] Ditch Tender: Eddi Desai MD Bilirubin.direct mass conc Negative [facility] Comment on above: Performed By: #### U HCG, LANE, UMICAO, UAX #### [facility] [address] [place] [address] Ditch Tender: Eddi Desai MD Color Nom (U) YELLOW Normal L [facility] Comment on above: Performed By: #### U HCG, LANE, UMICAO, UAX #### [facility] [address] [place] [address] Ditch Tender: Eddi Desai MD Glucose mass conc Negative [facility] Comment on above: Performed By: #### U HCG, LANE, UMICAO, UAX #### [facility] [address] [place] [address] Ditch Tender: Eddi Desai MD Hemoglobin mass conc (Bld) Negative [facility] Comment on above: Performed By: #### U HCG, LANE, UMICAO, UAX #### [facility] [address] [place] [address] Ditch Tender: Eddi Desai MD Leuckocyte Esterase Negative [facility] Comment on above: Performed By: #### U HCG, LANE, UMICAO, UAX #### [facility] [address] [place] [address] Ditch Tender: Eddi Desai MD Nitrite,Ur Negative [facility] Comment on above: Performed By: #### U HCG, LANE, UMICAO, UAX #### [facility] [address] [place] [address] Ditch Tender: Eddi Desai MD PH,Ur 6.0 Normal 5.0-9.0 [facility] Comment on above: Performed By: #### U HCG, LANE, UMICAO, UAX #### [facility] [address] [place] [address] Ditch Tender: Eddi Desai MD Protein mass conc Negative Normal NEG [facility] Comment on above: Performed By: #### U HCG, LANE, UMICAO, UAX #### [facility] [address] [place], [facility] Ditch Tender: Eddi Desai MD Spec. [place],Ur 1.010 Normal 1.010-1.020 [facility] Comment on above: Performed By: #### U HCG, LANE, UMICAO, UAX #### [facility] [address] [place] [address] Ditch Tender: Eddi Desai MD Turbidity CLEAR Normal CLEAR [facility] Comment on above: Performed By: #### U HCG, LANE, UMICAO, UAX #### [facility] [address] [place], [place] [address] Ditch Tender: Eddi Desai MD Urobilinogen,Ur Normal Normal NORM [facility] Comment on above: Performed By: #### U HCG, LANE, UMICAO, UAX #### [facility] [address] [place], [place] [address] Ditch Tender: Eddi Desai MD Comment NOT REPORTED Normal [facility] Comment on above: Performed By: #### U HCG, LANE, UMICAO, UAX #### [facility] [address] [place] [address] Ditch Tender: Eddi Desai MD Urinalysis,Microon 9 ----- Normal [facility] Comment on above: Performed By: #### U HCG, LANE, UMICAO, UAX #### [facility] [address] [place] [address] Ditch Tender: Eddi Desai MD Bacteria LM.HPF #/area (Urine sed) 1+ Abnormal [facility] Comment on above: Performed By: #### U HCG, LANE, UMICAO, UAX #### [facility] [address] [place] [address] Ditch Tender: Eddi Desai MD Epithelial cells LM.HPF #/area (Urine sed) 0 TO 2 Normal 0-25 [facility] Comment on above: Performed By: #### U HCG, LANE, UMICAO, UAX #### [facility] [address] [place] [address] Ditch Tender: Eddi Desai MD RBC #/vol (U) 0 TO 2 Normal 0-[address] [facility] Comment on above: Performed By: #### U HCG, LANE, UMICAO, UAX #### [facility] [address] [place] [address] [place] [address] Ditch Tender: Eddi Desai MD WBC #/vol (U) 0 TO 2 Normal 0-[address] [facility] Comment on above: Performed By: #### U HCG, LANE, UMICAO, UAX #### [address] [place] [address] Ditch Tender: Eddi Desai MD Amorphous sediment LM Ql (Urine sed) NOT REPORTED Normal [facility] Comment on above: Performed By: #### U HCG, LANE, UMICAO, UAX #### [facility] [address] [place] [address] Ditch Tender: Eddi Desai MD Casts LM.LPF #/area (Urine sed) NOT REPORTED Normal [facility] Comment on above: Performed By: #### U HCG, LANE, UMICAO, UAX #### [facility] [address] [place] [address] [place] [address] Ditch Tender: Eddi Desai MD Crystals LM Nom (Urine sed) NOT REPORTED Normal [facility] Comment on above: Performed By: #### U HCG, LANE, UMICAO, UAX #### [facility] [address] [place], [place] [address] Ditch Tender: Eddi Desai MD Epithelial, Renal NOT REPORTED Normal [address] [place] [address] Comment on above: Performed By: #### U HCG, LANE, UMICAO, UAX #### [facility] [address] [place], [place] [address]83 Ditch Tender: Eddi Desai MD Mucus Strands NOT REPORTED Normal [facility] Comment on above: Performed By: #### U HCG, LANE, UMICAO, UAX #### [facility] [address] [place] [address] Ditch Tender: Eddi Desai MD Other Observations NOT REPORTED Normal NREQ [facility] Comment on above: Performed By: #### U HCG, LANE, UMICAO, UAX #### [address] [place] [address] Ditch Tender: Eddi Desai MD Trichomonas NOT REPORTED Normal [facility] Comment on above: Performed By: #### U HCG, LANE, UMICAO, UAX #### [facility] [address] [place] [address] Ditch Tender: Eddi Desai MD Yeast LM Ql (Urine sed) NOT REPORTED Normal [facility] Comment on above: Performed By: #### U HCG, LANE, UMICAO, UAX #### [facility] [address] [place], [place] [address] Ditch Tender: Eddi Desai MD CBC W Auto Differentialon Abs Neut # 4.8 10 X 3/mm Normal 1.8 - 7.7 [facility] Comment on above: Performed By: #### C BC Auto Diff #### [facility] [address] [place] [address] Basophils/100 WBC (Bld) 1 % Normal 0 - 1 [facility] Comment on above: Performed By: #### C BC Auto Diff #### [facility] [address] [place] [address] Eosinophils #/vol (Bld) 0.5 10 X 3/mm Normal 0.0 - 0.5 [facility] Comment on above: Performed By: #### C BC Auto Diff #### [place] [address] [place] [address] Eosinophils/100 WBC (Bld) 7 % High 0 - 5 [facility] Comment on above: Performed By: #### C BC Auto Diff #### [place] [address] [place] [address] Erythrocyte distribution width Ratio (RBC) 16.3 % High 11.5 - 14.5 [facility] Comment on above: Performed By: #### C BC Auto Diff #### [place] [address] [place] [address] Hematocrit Volume Fraction (Bld) 35.1 % Low 36.0 - 47.0 [facility] Comment on above: Performed By: #### C BC Auto Diff #### [place] [address] [place] [address] Hemoglobin mass conc (Bld) 11.1 g/dL Low 12.0 - 16.0 [facility] Comment on above: Performed By: #### C BC Auto Diff #### [place] [address] [place] [address] Lymphocytes #/vol (Bld) 2.3 10 X 3/mm Normal 1.0 - 4.0 [facility] Comment on above: Performed By: #### C BC Auto Diff #### [facility] [address] [place] [address] Lymphocytes/100 WBC (Bld) 29 % Normal 20 - 40 [facility] Comment on above: Performed By: #### C BC Auto Diff #### [place] [address] [place] [address] MCH Entitic mass (RBC) 24.0 pg Low 27.0 - 35.0 [facility] Comment on above: Performed By: #### C BC Auto Diff #### [place] [address] [place] [address] MCHC mass conc (RBC) 31.6 g/dL Low 32.0 - 36.0 [facility] Comment on above: Performed By: #### C BC Auto Diff #### [place] [address] [place] [address] MCV Entitic volume (RBC) 76.2 fL Low 80.0 - 100.0 [facility] Comment on above: Performed By: #### C BC Auto Diff #### [place] [address] [place] [address] Monocytes/100 WBC (Bld) 6 % Normal 1 - 15 [facility] Comment on above: Performed By: #### C BC Auto Diff #### [place] [address] [place] [address] Neutrophils/100 WBC (Bld) 59 % Normal 50 - 70 [facility] Comment on above: Performed By: #### C BC Auto Diff #### [place] [address] [place] [address] Platelet mean volume Entitic volume (Bld) 8.7 fL Normal 7.5 - 11.5 [facility] Comment on above: Performed By: #### C BC Auto Diff #### [facility] [address] [place] [address] Platelets #/vol (Bld) 261 uLx10 Normal 150 - 450 [facility] Comment on above: Performed By: #### C BC Auto Diff #### [facility] [address] [place] [address] RBC #/vol (Bld) 4.61 10 X 6/mm Normal 4.20 - 5.40 [facility] Comment on above: Performed By: #### C BC Auto Diff #### [facility] [address] [place] [address] WBC #/vol (Bld) 8.2 10 X 3/mm Normal 3.7 - 11.0 [facility] Comment on above: Performed By: #### C BC Auto Diff #### [facility] [address] [place] [address] Comprehensive Metabolic Pane [place] 01-20-2019 GFR/1.73 sq M predicted among non-blacks MDRD vol rate/area (S/P/Bld) 118.3 Normal [facility] Comment on above: Result Comment: eGFR Interpretation: Normal: Equal to or greater than 60 mL/min/1.73 meters squared Chronic Kidney Disease: Less than 60 mL/min/1.73 meters squared Kidney Failure: Less than 15 mL/min/1.73 meters squared Performed By: #### C MP #### [facility] [address] [place] [address] GFR/1.73 sq M predicted among non-blacks MDRD vol rate/area (S/P/Bld) 163.17 Normal [facility] Comment on above: Result Comment: eGFR Interpretation: Normal: Equal to or greater than 60 mL/min/1.73 meters squared Chronic Kidney Disease: Less than 60 mL/min/1.73 meters squared Kidney Failure: Less than 15 mL/min/1.73 meters squared Performed By: #### C MP #### [facility] [address] [place] [address] GFR/1.73 sq M predicted among non-blacks MDRD vol rate/area (S/P/Bld) 128.94 Normal [facility] Comment on above: Result Comment: eGFR Interpretation: Normal: Equal to or greater than 60 mL/min/1.73 meters squared Chronic Kidney Disease: Less than 60 mL/min/1.73 meters squared Kidney Failure: Less than 15 mL/min/1.73 meters squared Performed By: #### C MP #### [place] [address] [place] [address] GFR/1.73 sq M predicted among non-blacks MDRD vol rate/area (S/P/Bld) 122.98 Normal [facility] Comment on above: Result Comment: eGFR Interpretation: Normal: Equal to or greater than 60 mL/min/1.73 meters squared Chronic Kidney Disease: Less than 60 mL/min/1.73 meters squared Kidney Failure: Less than 15 mL/min/1.73 meters squared Performed By: #### C MP #### [place] [address] [place] [address] GFR/1.73 sq M predicted among non-blacks MDRD vol rate/area (S/P/Bld) 136.41 Normal [facility] Comment on above: Performed By: #### C MP #### [facility] [address] [place] [place] [address] GFR/1.73 sq M predicted among non-blacks MDRD vol rate/area (S/P/Bld) 188.63 Normal [facility] Comment on above: Performed By: #### C MP #### [facility] [address] [place] [address] GFR/1.73 sq M predicted among non-blacks MDRD vol rate/area (S/P/Bld) 149.05 [facility] Comment on above: Performed By: #### C MP #### [facility] [address] [place] [address] GFR/1.73 sq M predicted among non-blacks MDRD vol rate/area (S/P/Bld) 141.77 Normal [facility] Comment on above: Performed By: #### C MP #### [facility] [address] [place] [address] Age Reported 28 year(s) Normal [facility] Comment on above: Performed By: #### C MP #### [facility] [address] [place] [address] Albumin mass conc 3.9 g/dL Normal 3.5 - 5.0 [facility] Comment on above: Performed By: #### C MP #### [address] [place] [address] ALP enzyme act/vol 81 U/L Normal 38 - 126 [facility] Comment on above: Performed By: #### C MP #### [address] [place] [address] ALT enzyme act/vol 39 U/L High 0 - 35 [facility] Comment on above: Performed By: #### C MP #### [address] [place] [address] AST enzyme act/vol 30 U/L Normal 14 - 36 [facility] Comment on above: Performed By: #### C MP #### [address] [facility] [place] [address] Bilirubin mass conc 0.6 mg/dL Normal 0.2 - 1.3 [facility] Comment on above: Performed By: #### C MP #### [address] [place] [address] Calcium mass conc 8.6 mg/dL Normal 8.4 - 10.2 [facility] Comment on above: Performed By: #### C MP #### [facility] [address] [place] [address] Chloride molar conc 105 mmol/L Normal 98 - 107 [facility] Comment on above: Performed By: #### C MP #### [facility] [address] [place] [address] CO2 molar conc 23 mmol/L Normal 22 - 32 [facility] Comment on above: Performed By: #### C MP #### [address] [place] [address] Creatinine mass conc 0.67 mg/dL Normal 0.52 - 1.04 [facility] Comment on above: Performed By: #### C MP #### [address] [place] [address] Glucose mass conc 81 mg/dL Normal 65 - 100 [facility] Comment on above: Performed By: #### C MP #### [address] [place] [address] Potassium molar conc 3.9 mmol/L Normal 3.6 - 5.0 [facility] Comment on above: Performed By: #### C MP #### [facility] [address] [place] [address] Protein mass conc 7.3 g/dL Normal 6.3 - 8.2 [facility] Comment on above: Performed By: #### C MP #### [facility] [address] [place] [address] Sodium molar conc 139 mmol/L Normal 135 - 145 [facility] Comment on above: Performed By: #### C MP #### [place] [address] [place], [place] [id number] Urea nitrogen mass conc 5 mg/dL Low 7 - 17 [facility] Comment on above: Performed By: #### C MP #### [facility] [address] [place], [place] [id number] Age at specimen collection = Normal [facility] Comment on above: Performed By: #### C MP #### [facility] [address] [place], [place] [id number] Performed By: #### C BC Auto Diff #### [facility] [address] [place], [place] [id number] FERRITINon 11-08-2018 Ferritin mass conc 10 ng/mL Normal 6.24-137 [facility] Comment on above: Result Comment: SARAH ENOPAUSAL FEMALES 6.9-282.5 POSTMENOPAUSAL FEMALES 14.0-233.1 Performed By: #### F EPRO, FRTN, B12, AFOL ####Testing performed at [address] [address] FOLATEon 11-08-2018 FOLATE 12.0 NG/ML Normal 2.56-20.0 [facility] Comment on above: Performed By: #### F EPRO, FRTN, B12, AFOL ####Testing performed at [address] [address] IRON PROFILEon 11-08-2018 IRON BINDING 416 UG/DL Normal 250-450 [facility] Comment on above: Performed By: #### F EPRO, FRTN, B12, AFOL ####Testing performed at [address] [address] TRANSFERRIN SATURATION,CALCULATED 13 % Normal [facility] Comment on above: Performed By: #### F EPRO, FRTN, B12, AFOL ####Testing performed at [address] [address] Iron mass conc 53 ug/dL Normal 37-170 [facility] Comment on above: Performed By: #### F EPRO, FRTN, B12, AFOL ####Testing performed at [address] [address] VITAMIN B12on 11-08-2018 Cobalamin (Vitamin B12) mass conc 351 pg/mL Normal 239-931 [facility] Comment on above: Performed By: #### F EPRO, FRTN, B12, AFOL ####Testing performed at [place] [id number] BHCG,QUANTITATIVEon 10-07-20 18 BHCG,QUANTITATIVE <2.39 Normal [facility] Comment on above: Result Comment: [facility] INTERPRETIVE RANGES: NON FEMALE 0-6 MIU/MLMALE ADULT [...] qualitative hCG testing of urine.Testing performed at [place] [address] Performed By: #### B HCG2 ####Testing performed at [place] [id number] POCT URINE PREGNANCYon 10-07 HCG.beta subunit Qn Invalid Interpretation Code [facility] Work Phone: Interpretation and review of laboratory results Normal Invalid Interpretation Code [facility] Work Phone: OR REMOVE INTRAUTERINE DEVIC Brian 10-07-2018 Joseph Renteria DO 10/07 1:25 PM IUD REMOVAL PROCEDURE PERFORMED BY: Joseph Renteria DO SENIOR MEDIA PLANNER(S): None ATTENDING: Joseph Renteria DO PROCEDURE DATE: [...] THIS PROCEDURE REQUIRE A UNIVERSAL PROTOCOL? Yes. Seguin Protocol is required Preprocedure verification is complete [...] 6 months. Periods may become shorter and/or control clerk thereafter. Cycles may remain irregular, become infrequent, or even cease. Consider as fertility is rapidly returned after removal of an IUD Questions have been answered. Informed consent has been obtained. Cervix was prepped with betadine x 3. 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 SPECIMEN(S) REMOVED: none DISPOSITION OF SPECIMEN(S): N/A ESTIMATED BLOOD LOSS: None ESTIMATED FLUIDS: No crystalloid, colloid or blood products given.. FINDINGS: unremarkable contour of 8 cm uterus, unremarkable adenexa Brand: Radha CONDITION: Stable. Patient tolerated procedure well. COMPLICATIONS: None. Good hemostasis obtained. PLAN: Follow up prn Invalid Interpretation Code [facility] Work Phone: Cult,Bloodon 09-20-2018 Cult,Blood Specimen Description .BLOOD Special Requests 10 ML LEFT FOREARM Culture NO GROWTH 6 DAYS Report Status FINAL 09/20/2018 Normal [facility] Comment on above: Performed By: #### U SAMEERA Ortiz #### [facility] [address] [place] [address] CHLAM/GC AMPLIFon 09-17-2018 CHLAMYDIA NUC. AMP Negative Normal Negative [facility] GONOCOCCUS NUC. AMP Negative Normal Negative [facility] Comment on above: Result Comment: PERF ORMED AT [facility] Cult,Urineon 09-15-2018 Cult,Urine Specimen Description .URINE, MIDSTREAM Special Requests NOT REPORTED Culture NO SIGNIFICANT GROWTH Report Status FINAL 09/15/2018 Normal [facility] Comment on above: Performed By: #### U SAMEERA Ortiz #### [facility] [address] [place] [address] TESTOSTER.FREE-TOTALon 09-15 FREE TESTOSTERONE 0.9 pg/mL Normal 0.0-4.2 [facility] Comment on above: Result Comment: PERF ORMED AT [facility] Performed By: #### A CBC, CHEM7F, BHCG2 ####Testing performed at [address] [address] Amylaseon 09-14-2018 Amylase enzyme act/vol 31 U/L Normal 28-100 [facility] Comment on above: Performed By: #### C DP, HCG, LACTIC, ISABEL, CP, LIP #### [facility] [address] [place] [address] CBC with Diffon 09-14-2018 Abs. Basophil 0.00 k/uL Normal 0.0-0.2 [facility] Comment on above: Performed By: #### C DP, HCG, LACTIC, ISABEL, CP, LIP #### [facility] [address] [place] [address] Abs.Neutrophil (Seg) 6.10 k/uL Normal 2.5-7.0 [facility] Comment on above: Performed By: #### C DP, HCG, LACTIC, ISABEL, CP, LIP #### [facility] [address] [place] [address] Auto Diff Performed YES Normal [facility] Comment on above: Performed By: #### C DP, HCG, LACTIC, ISABEL, CP, LIP #### [facility] [address] [place] [address] Basophils/100 WBC (Bld) 0 % Normal 0-2 [facility] Comment on above: Performed By: #### C DP, HCG, LACTIC, ISABEL, CP, LIP #### [facility] [address] [place] [address] Eosinophils #/vol (Bld) 0.00 10*3/uL Normal 0.0-0.4 [facility] Comment on above: Performed By: #### C DP, HCG, LACTIC, ISABEL, CP, LIP #### [place] [address] Eosinophils/100 WBC (Bld) 0 % Normal 0-5 [facility] Comment on above: Performed By: #### C DP, HCG, LACTIC, ISABEL, CP, LIP #### [place] [address] Erythrocyte distribution width Ratio (RBC) 16.9 % High 12.1-15.2 [facility] Comment on above: Performed By: #### C DP, HCG, LACTIC, ISABEL, CP, LIP #### [place] [address] Hematocrit Volume Fraction (Bld) 31.0 % Low 36-46 [facility] Comment on above: Performed By: #### C DP, HCG, LACTIC, ISABEL, CP, LIP #### [place] [address] Hemoglobin mass conc (Bld) 10.1 g/dL Low 12.0-16.0 [facility] Comment on above: Performed By: #### C DP, HCG, LACTIC, ISABEL, CP, LIP #### [address] [place] [address] Lymphocytes #/vol (Bld) 2.10 10*3/uL Normal 1.0-4.8 [facility] Comment on above: Performed By: #### C DP, HCG, LACTIC, ISABEL, CP, LIP #### [address] [place] [address] Lymphocytes/100 WBC (Bld) 24 % Normal 15-40 [facility] Comment on above: Performed By: #### C DP, HCG, LACTIC, ISABEL, CP, LIP #### [place] [address] MCH Entitic mass (RBC) 25.0 pg Low 26-34 [facility] Comment on above: Performed By: #### C DP, HCG, LACTIC, ISABEL, CP, LIP #### [place] [address] MCHC mass conc (RBC) 32.6 g/dL Normal 31-37 [facility] Comment on above: Performed By: #### C DP, HCG, LACTIC, ISABEL, CP, LIP #### [place] [address] MCV Entitic volume (RBC) 76.6 fL Low 80-100 [facility] Comment on above: Performed By: #### C DP, HCG, LACTIC, ISABEL, CP, LIP #### [place] [address] Monocytes #/vol (Bld) 0.40 10*3/uL Normal 0.0-1.0 [facility] Comment on above: Performed By: #### C DP, HCG, LACTIC, ISABEL, CP, LIP #### [place] [address] Monocytes/100 WBC (Bld) 5 % Normal 4-8 [facility] Comment on above: Performed By: #### C DP, HCG, LACTIC, ISABEL, CP, LIP #### [place] [address] Neutrophil (Seg) 71 % Normal 47-75 [facility] Comment on above: Performed By: #### C DP, HCG, LACTIC, ISABEL, CP, LIP #### [place] [address] Platelets #/vol (Bld) 499 10*3/uL High 140-450 [facility] Comment on above: Performed By: #### C DP, HCG, LACTIC, ISABEL, CP, LIP #### [place] [address] RBC #/vol (Bld) 4.05 10*6/uL Normal 4.0-5.2 [facility] Comment on above: Performed By: #### C DP, HCG, LACTIC, ISABEL, CP, LIP #### [place] [address] WBC #/vol (Bld) 8.6 10*3/uL Normal 3.5-11.0 [facility] Comment on above: Performed By: #### C DP, HCG, LACTIC, ISABEL, CP, LIP #### [place] [address] Abs.Imm.Granulocyte NOT REPORTED Normal 0.00-0.30 [facility] Comment on above: Performed By: #### C DP, HCG, LACTIC, ISABEL, CP, LIP #### [place] [address] Immature granulocytes #/vol (Bld) NOT REPORTED Normal 0 [facility] Comment on above: Performed By: #### C DP, HCG, LACTIC, ISABEL, CP, LIP #### [place] [address] NRBC Automated NOT REPORTED Normal [facility] Comment on above: Performed By: #### C DP, HCG, LACTIC, ISABEL, CP, LIP #### [facility] [address] [facility] [place] [address] Platelet mean volume Entitic volume (Bld) NOT REPORTED Normal 6.0-12.0 [facility] Comment on above: Performed By: #### C DP, HCG, LACTIC, ISABEL, CP, LIP #### [facility] [address] [facility] [place] [address] Platelets #/vol (Bld) NOT REPORTED Normal [facility] Comment on above: Performed By: #### C DP, HCG, LACTIC, ISABEL, CP, LIP #### [facility] [address] [facility] [place] [address] RBC morphology finding Nom (Bld) NOT REPORTED Normal [facility] Comment on above: Performed By: #### C DP, HCG, LACTIC, ISABEL, CP, LIP #### [facility] [address] [facility] [place] [address] [phone] WBC Morphology NOT REPORTED Normal [facility] Comment on above: Performed By: #### C DP, HCG, LACTIC, ISABEL, CP, LIP #### [address] [place] [address] [phone] Comp Metabolic Profon 2017 (cont.) Normal [facility] Comment on above: Result Comment: Aver age GFR for 20-29 years old: 116 mL/min/1.73sq m Chronic Kidney Disease: <60 mL/min/1.73sq m Kidney failure: <15 mL/min/1.73sq m eGFR calculated using average adult body mass. Additional eGFR calculator available at: http://www.[employer]/multiple_crcl_2012.htm Performed By: #### U SAMEERA Ortiz #### [address] [place] [phone] Albumin mass conc 3.5 g/dL Normal 3.5-5.2 [facility] Comment on above: Performed By: #### SAMEERA Carcamo #### [facility] [address] [facility]. [place], [place] [phone] Alkaline Phos 87 U/L Normal 35-104 [facility] Comment on above: Performed By: #### SAMEERA Carcamo #### [facility] [address] [facility] [place] [address] [phone] ALT enzyme act/vol 6 U/L Normal 5-33 [facility] Comment on above: Performed By: #### SAMEERA Carcamo #### [facility] [address] [place] [address] ([phone]) Anion gap molar conc 12 mmol/L Normal 9-17 [facility] Comment on above: Performed By: #### SAMEERA Carcamo #### [facility] [address] [facility] [place] [address] [phone] AST enzyme act/vol 13 U/L Normal <32 [facility] Comment on above: Performed By: #### SAMEERA Carcamo #### [facility] [address] [facility] [place] [address] [phone]) Bilirubin Ql (U) 0.42 mg/dL Normal 0.30-1.20 [facility] Comment on above: Performed By: #### SAMEERA Carcamo #### [facility] [address] [place] [address] [phone]) BUN/CRE Ratio 8 Low 9-20 [facility] Comment on above: Performed By: #### SAMEERA Carcamo #### [facility] [address] [place] [address] [phone]) Calcium mass conc 8.9 mg/dL Normal 8.6-10.4 [facility] Comment on above: Performed By: #### SAMEERA Carcamo #### [facility] [address] [facility] [place] [address] Chloride molar conc 102 mmol/L Normal 98-107 [facility] Comment on above: Performed By: #### U Angel, GINAICAO #### [facility] [address] [place] [address] CO2 molar conc 25 mmol/L Normal 20-31 [facility] Comment on above: Performed By: #### U Angel, GINAICAO #### [facility] [address] [facility] [place] [address] Creatinine mass conc 0.75 mg/dL Normal 0.50-0.90 [facility] Comment on above: Performed By: #### U Angel, UMICAO #### [facility] [address] [facility] [place] [address] GFR, Amer >60 Normal >60 [facility] Comment on above: Performed By: #### U Angel, UMICAO #### [facility] [address] [facility] [place] [address] GFR,non Amer >60 Normal >60 [facility] Comment on above: Performed By: #### U Angel, GINAICAO #### [facility] [address] [facility] [place] [address] Glucose mass conc 124 mg/dL High 70-99 [facility] Comment on above: Performed By: #### U Angel, UMICAO #### [facility] [address] [facility] [place] [address] Potassium molar conc 3.3 mmol/L Low 3.7-5.3 [facility] Comment on above: Performed By: #### U A, UMICAO #### [facility] [address] [facility] [place] [address] Protein mass conc 7.4 g/dL Normal 6.4-8.3 [facility] Comment on above: Performed By: #### U A, UMICAO #### [facility] [address] [facility] [place], [place] [phone] Sodium molar conc 139 mmol/L Normal 135-144 [facility] Comment on above: Performed By: #### U A, UMICAO #### [facility] [address] [place], [place] [phone] Urea nitrogen mass conc 6 mg/dL Normal 6-20 [facility] Comment on above: Performed By: #### U A, UMICAO #### [facility] [address] [facility] [place] [address] Albumin/Globulin mass ratio NOT REPORTED Normal 1.0-2.5 [facility] Comment on above: Performed By: #### U A, UMICAO #### [facility] [address] [facility] [place] [address] Staging: NOT REPORTED Normal [facility] Comment on above: Performed By: #### U A, UMICAO #### [facility] [address] [facility] [place] [address] [phone] HCG Screen, Bloodon 09-14-20 18 HCG Qn Negative Normal NEG [facility] Comment on above: Result Comment: Spec imens with hCG levels near the threshold of the test (25 mIU/mL) may give a negative or indeterminate result. In such cases, another test should be performed with a new specimen in 48-72 hours. If early is suspected clinically in this setting, correlation with quantitative serum b-hCG level is suggested. [employer] has confirmed the use of plasma for this test. This has not been cleared or approved by the U.S. Food and Drug Administration. The FDA has determined that such clearance is not necessary. Performed By: #### C DP, HCG, LACTIC, ISABEL, CP, LIP #### [facility] [address] [facility] [place] [address] [phone] Lactic Acidon 09-14-2018 Lactate molar conc 1.9 mmol/L Normal 0.5-2.2 [facility] Comment on above: Performed By: #### C DP, HCG, LACTIC, ISABEL, CP, LIP #### [facility] [address] [facility] [place] [address] Lactate molar conc NOT REPORTED Normal 0.7-2.1 [facility] Comment on above: Performed By: #### C DP, HCG, LACTIC, ISABEL, CP, LIP #### [facility] [address] [facility] [place] [address] Lipaseon 09-14-2018 Lipase enzyme act/vol 29 U/L Normal 13-60 [facility] Comment on above: Performed By: #### U A, GINAICAO #### [facility] [address] [facility] [place] [address] TESTOSTER.FREE-TOTALon 09-14 Testosterone mass conc 6 ng/dL Low 8-48 [facility] Comment on above: Result Comment: [facility] Performed By: #### A CBC, CHEM7F, BHCG2 ####Testing performed at [facility] [place] [address] Urinalysis, Routineon 2017 Acetoacetic Acid,Ur Negative Normal NEG [facility] Comment on above: Performed By: #### U A, UMICAO #### [facility] [address] [facility] [place] [address] Bilirubin, SemiQt,Ur Negative Normal NEG [facility] Comment on above: Performed By: #### U A, UMICAO #### [facility] [address] [facility] [place] [address] Color Nom (U) YELLOW Normal YEL [facility] Comment on above: Performed By: #### U A, UMICAO #### [facility] [address] [facility] [place] [address] Comment Normal [facility] Comment on above: Performed By: #### U A, UMICAO #### [facility] [address] [facility] [place] [id number] Glucose,Semi-qnt,Ur Negative Normal NEG [facility] Comment on above: Performed By: #### SAMEERA Carcamo #### [facility] [address] [facility] [place] [address] Hemoglobin, Ur 2+ Abnormal NEG [facility] Comment on above: Performed By: #### SAMEERA Carcamo #### [facility] [address] [place] [address] Leuckocyte Esterase 1+ Abnormal NEG [facility] Comment on above: Performed By: #### SAMEERA Carcamo #### [facility] [address] [place] [address] Nitrite,Ur Negative Normal NEG [facility] Comment on above: Performed By: #### SAMEERA Carcamo #### [facility] [address] [place] [address] PH,Ur 7.0 Normal 5.0-8.0 [facility] Comment on above: Performed By: #### SAMEERA Carcamo #### [facility] [address] [place] [address] Protein mass conc (U) Negative Normal NEG [facility] Comment on above: Performed By: #### SAMEERA Carcamo #### [facility] [address] [place] [address] Spec. [place],Ur 1.010 Normal 1.005-1.030 [facility] Comment on above: Performed By: #### SAMEERA Carcamo #### [facility] [address] [place] [address] Turbidity HAZY Abnormal CLEAR [facility] Comment on above: Performed By: #### SAMEERA Carcamo #### [facility] [address] [facility] [place] [id number] Urobilinogen,Ur Normal Normal NORM [facility] Comment on above: Performed By: #### U SAMEERA Ortiz #### [facility] [address] [place] [address] Urinalysis,Microon 8 ----- Normal [facility] Comment on above: Performed By: #### U KAELYN OrtizO #### [facility] [address] [place] [address] Bacteria LM.HPF #/area (Urine sed) 1+ Abnormal NONE [facility] Comment on above: Performed By: #### U SAMEERA Ortiz #### [facility] [address] [place] [address] Epithelial cells LM.HPF #/area (Urine sed) 5 TO 10 Normal [facility] Comment on above: Performed By: #### SAMEERA Carcamo #### [facility] [address] [place] [address] RBC #/vol (U) 2 TO 5 Normal 0-2 [facility] Comment on above: Performed By: #### U KAELYN OrtizO #### [facility] [address] [place] [address] WBC #/vol (U) 2 TO 5 Normal 0 [facility] Comment on above: Performed By: #### U KAELYN OrtizO #### [facility] [address] [place] [address] Amorphous sediment LM Ql (Urine sed) NOT REPORTED Normal NONE [facility] Comment on above: Performed By: #### U A UMICAO #### [facility] [address] [place] [address] Casts LM.LPF #/area (Urine sed) NOT REPORTED Normal [facility] Comment on above: Performed By: #### U AKAELYNO #### [facility] [address] [place] [address] Crystals LM Nom (Urine sed) NOT REPORTED Normal NONE [facility] Comment on above: Performed By: #### U SAMEERA Ortiz #### [facility] [address] [place] [address] Epithelial, Renal NOT REPORTED Normal 0 [facility] Comment on above: Performed By: #### U SAMEERA Ortiz #### [facility] [address] [place] [address] Mucus Strands NOT REPORTED Normal NONE [facility] Comment on above: Performed By: #### SAMEERA Carcamo #### [facility] [address] [place] [address] Other Observations NOT REPORTED Normal NREQ [facility] Comment on above: Performed By: #### SAMEERA Carcamo #### [facility] [address] [place] [address] Trichomonas NOT REPORTED Normal NONE [facility] Comment on above: Performed By: #### SAMEERA Carcamo #### [facility] [address] [place] [address] Yeast LM Ql (Urine sed) NOT REPORTED Normal NONE [facility] Comment on above: Performed By: #### U SAMEERA Ortiz #### [facility] [address] [place] [address] [phone] BMP FASTINGon 09-13-2018 Anion gap 3 molar conc 13 mmol/L Normal 8-16 [facility] Comment on above: Performed By: #### A CBC, CHEM7F, BHCG2 ####Testing performed at [facility] [place] [address] Calcium mass conc 9.4 mg/dL Normal 8.4-10.2 [facility] Comment on above: Performed By: #### A CBC, CHEM7F, BHCG2 ####[place] [address] Chloride molar conc 104 mmol/L Normal 98-107 [facility] Comment on above: Result Comment: Anna Marie willard note: Triglyceride levels of 600mg/dL or higher may positively bias chloride results by approximately 2.1 mmol Performed By: #### A CBC, CHEM7F, BHCG2 ####[place] [address] CO2 molar conc 24 mmol/L Normal 22-30 [facility] Comment on above: Performed By: #### A CBC, CHEM7F, BHCG2 ####[place] [address] Creatinine mass conc 0.8 mg/dL Normal 0.7-1.2 [facility] Comment on above: Performed By: #### A CBC, CHEM7F, BHCG2 ####[place] [address] EST. GFR, >60 Normal [facility] Comment on above: Performed By: #### A CBC, CHEM7F, BHCG2 ####[place] [address] EST. GFR,Non >60 Normal [facility] Comment on above: Performed By: #### A CBC, CHEM7F, BHCG2 ####[place] [address] GFR/1.73 sq M predicted among non-blacks MDRD vol rate/area (S/P/Bld) Average GFR for 20-29 years old = 116. Normal [facility] Comment on above: Result Comment: Child Adolescent Psychiatrist frantz Kidney disease, GFR = <60.Kidney failure, GFR = <15.The GFR estimate is not adjusted for extreme body surface area or acute process, nor has it been validated for women or ethnic groups other than and .Testing performed at [place] [address] Performed By: #### A CBC, CHEM7F, BHCG2 ####[place] [address] Glucose mass conc 119 mg/dL High 70-100 [facility] Comment on above: Result Comment: NORM AL <100 mg/dLPREDIABETES 101-126 mg/dLDIABETES 126 mg/dL or higher Performed By: #### A CBC, CHEM7F, BHCG2 ####[place] [address] Potassium molar conc 3.4 mmol/L Low 3.5-5.1 [facility] Comment on above: Performed By: #### A CBC, CHEM7F, BHCG2 ####[place] [address] Sodium molar conc 141 mmol/L Normal 137-145 [facility] Comment on above: Performed By: #### A CBC, CHEM7F, BHCG2 ####[place] [address] Urea nitrogen mass conc (Bld) 4 mg/dL Low 7-20 [facility] Comment on above: Performed By: #### A CBC, CHEM7F, BHCG2 ####[place] [address] CBCon 09-13-2018 ABSOLUTE BAS 0.0 X10 Normal [facility] Comment on above: Result Comment: Test ing performed at [place] [address] Performed By: #### A CBC, CHEM7F, BHCG2 ####[place] [address] ABSOLUTE EOS 0.10 X10 Normal [facility] Comment on above: Performed By: #### A CBC, CHEM7F, BHCG2 ####[place] [address] ABSOLUTE NEUTROPHIL COUNT 7.1 x10 High 1.0-7.0 [facility] Comment on above: Performed By: #### A CBC, CHEM7F, BHCG2 ####Testing performed at [address] [address] Basophils/100 WBC Auto (Bld) 0.3 % Normal 0.0-2.0 [facility] Comment on above: Performed By: #### A CBC, CHEM7F, BHCG2 ####Testing performed at [address] [address] DTYPE AUTO DIFF Normal [facility] Comment on above: Performed By: #### A CBC, CHEM7F, BHCG2 ####Testing performed at [address] [address] Eosinophils/100 WBC Auto (Bld) 0.6 % Normal 0.0-11.0 [facility] Comment on above: Performed By: #### A CBC, CHEM7F, BHCG2 ####Testing performed at [address] [address] Lymphocytes Auto #/vol (Bld) 1.80 X10 Normal [facility] Comment on above: Performed By: #### A CBC, CHEM7F, BHCG2 ####Testing performed at [address] [address] Lymphocytes/100 WBC Auto (Bld) 18.9 % Low 20.0-55.0 [facility] Comment on above: Performed By: #### A CBC, CHEM7F, BHCG2 ####Testing performed at [address] [address] Monocytes Auto #/vol (Bld) 0.3 X10 Normal [facility] Comment on above: Performed By: #### A CBC, CHEM7F, BHCG2 ####Testing performed at [address] [address] Monocytes/100 WBC Auto (Bld) 3.7 % Normal 0.0-10.0 [facility] Comment on above: Performed By: #### A CBC, CHEM7F, BHCG2 ####Testing performed at [address] [address] Neutrophils/100 WBC Auto (Bld) 76.5 % High 37.0-75.0 [facility] Comment on above: Performed By: #### A CBC, CHEM7F, BHCG2 ####[place] [address] Erythrocyte distribution width Auto Ratio (RBC) 16.8 % High 11.5-14.5 [facility] Comment on above: Performed By: #### A CBC, CHEM7F, BHCG2 ####[place] [address] Hematocrit Auto Volume Fraction (Bld) 34.3 % Low 36.0-48.0 [facility] Comment on above: Performed By: #### A CBC, CHEM7F, BHCG2 ####[place] [address] Hemoglobin mass conc (Bld) 10.8 g/dL Low 12.0-16.0 [facility] Comment on above: Performed By: #### A CBC, CHEM7F, BHCG2 ####[place] [address] MCH Auto Entitic mass (RBC) 24.5 pg Low 26.0-35.0 [facility] Comment on above: Performed By: #### A CBC, CHEM7F, BHCG2 ####[place] [address] MCHC Auto mass conc (RBC) 31.6 g/dL Normal 27.0-37.0 [facility] Comment on above: Performed By: #### A CBC, CHEM7F, BHCG2 ####[place] [address] MCV Auto Entitic volume (RBC) 77.5 fL Low 80.0-100.0 [facility] Comment on above: Performed By: #### A CBC, CHEM7F, BHCG2 ####[place] [address] Platelet mean volume Auto Entitic volume (Bld) 7.0 fL Low 7.4-11.0 [facility] Comment on above: Result Comment: Test ing performed at [place] [address] Performed By: #### A CBC, CHEM7F, BHCG2 ####[place] [address] Platelets Auto #/vol (Bld) 550 /cmm High 130.0-400.0 [facility] Comment on above: Performed By: #### A CBC, CHEM7F, BHCG2 ####[place] [address] RBC Auto #/vol (Bld) 4.42 /cmm Normal 4.0-5.4 [facility] Comment on above: Performed By: #### A CBC, CHEM7F, BHCG2 ####[place] [address] WBC Auto #/vol (Bld) 9.4 /cmm Normal 3.6-11.0 [facility] Comment on above: Performed By: #### A CBC, CHEM7F, BHCG2 ####[place] [address] GENITAL CULTUREon 09-13-2018 GENITAL CULTURE SPECIMEN DESCRIPTION [...] * * Result Note: Testing performed at [place] [address] *REPORT STATUS 09/15/2018 * Result Note: FINAL * Normal [facility] Comment on above: Performed By: #### G ENC ####[place] [address] HEMOGLOBIN A1Con 09-13-2018 Glucose mass conc 117 mg/dL Normal [facility] Comment on above: Result Comment: Test ing performed at [place] [address] Performed By: #### A CBC, CHEM7F, BHCG2 ####[place] [address] Hemoglobin A1c/Hemoglobin.total mass fraction (Bld) 5.7 % Normal 0-6 [facility] Comment on above: Result Comment: NORM AL <5.7%PREDIABETES 5.7-6.4%DIABETES 6.5% OR HIGHER Performed By: #### A CBC, CHEM7F, BHCG2 ####[place] [address] URINE CULTUREon 09-13-2018 Bacteria identified Cx Nom (U) SPECIMEN DESCRIPTION URINE CLEAN CATCHUA DIPSTICK NITRITE NEGATIVE * Result Note: LEUKOCYTE POSITIVE *CULTURE MULTIPLE SPECIES PRESENT;PROBABLE CONTAMINATION. SUGGEST REPEAT SPECIMEN. * Result Note: Testing performed at [place] [address] *REPORT STATUS 09/15/2018 * Result Note: FINAL * Normal [facility] Comment on above: Performed By: #### A CBC, CHEM7F, BHCG2 ####[place] [address] URINE MACROSCOPICon 09-13-20 18 Bilirubin Ql (U) Negative Normal NEGATIVE [facility] Comment on above: Performed By: #### A CBC, CHEM7F, BHCG2 ####[place] [address] Clarity Nom (U) CLEAR Normal CLEAR [facility] Comment on above: Performed By: #### A CBC, CHEM7F, BHCG2 ####[place] [address] Color Nom (U) YELLOW Normal YELLOW [facility] Comment on above: Performed By: #### A CBC, CHEM7F, BHCG2 ####[place] [address] Glucose Ql (U) Negative Normal NEGATIVE [facility] Comment on above: Performed By: #### A CBC, CHEM7F, BHCG2 ####[place] [address] pH Test strip (U) 7.5 [pH] High 5.0-7.0 [facility] Comment on above: Performed By: #### A CBC, CHEM7F, BHCG2 ####[place] [address] URINE HEMOGLOBIN MODERATE Abnormal NEGATIVE [facility] Comment on above: Performed By: #### A CBC, CHEM7F, BHCG2 ####[place] [address] URINE KETONE Negative Normal NEGATIVE [facility] Comment on above: Performed By: #### A CBC, CHEM7F, BHCG2 ####[place] [address] URINE LEUKOTEST TRACE Abnormal NEGATIVE [facility] Comment on above: Result Comment: Test ing performed at [place] [address] Performed By: #### A CBC, CHEM7F, BHCG2 ####[place] [address] URINE NITRATES Negative Normal NEGATIVE [facility] Comment on above: Performed By: #### A CBC, CHEM7F, BHCG2 ####[place] [address] URINE SPEC GRAVITY 1.015 Normal 1.010-1.025 [facility] Comment on above: Performed By: #### A CBC, CHEM7F, BHCG2 ####[place] [address] URINE TOTAL PROTEIN Negative Normal NEGATIVE [facility] Comment on above: Performed By: #### A CBC, CHEM7F, BHCG2 ####[place] [address] Urobilinogen Test strip Qn (U) 0.2 mg/dl Normal 0.2-1.0 [facility] Comment on above: Performed By: #### A CBC, CHEM7F, BHCG2 ####[place] [address] URINE MICROSCOPICon 09-13-20 18 BACTERIA TRACE Abnormal NEGATIVE [facility] Comment on above: Performed By: #### A CBC, CHEM7F, BHCG2 ####[place] [address] CASTS NONE Normal NONE [facility] Comment on above: Performed By: #### A CBC, CHEM7F, BHCG2 ####[place] [address] CRYSTAL NONE Normal NONE [facility] Comment on above: Performed By: #### A CBC, CHEM7F, BHCG2 ####[place] [address] EPITHELIAL CELLS 1 TO 5 Normal [facility] Comment on above: Performed By: #### A CBC, CHEM7F, BHCG2 ####[place] [address] MUCUS TRACE Abnormal NEGATIVE [facility] Comment on above: Performed By: #### A CBC, CHEM7F, BHCG2 ####[place] [address] RBC Test strip #/vol (U) 5 TO 10 Normal NEGATIVE [facility] Comment on above: Performed By: #### A CBC, CHEM7F, BHCG2 ####[place] [address] URINE COMMENT PHYSICIAN REQUESTED CULTURE Normal [facility] Comment on above: Result Comment: Test ing performed at [place] [address] Performed By: #### A CBC, CHEM7F, BHCG2 ####[place] [address] URINE WBC'S 1 TO 5 Normal NEGATIVE [facility] Comment on above: Performed By: #### A CBC, CHEM7F, BHCG2 ####[place] [address] XR CHEST PA/APon 09-06-2018 XR CHEST PA/AP [...] infiltrate within the right lung base.JLL/awWorkstation ID: [id number] by: EHSAN SAMUEL on SunSep 06, 2018 10:44:43 AM EDTTranscribed by: SHALOM LOPEZ on SunSep 06, 2018 11:09:51 AM EDTFinalized by: EHSAN SAMUEL on SunSep 06, 2018 11:25:32 AM EDT [facility] Comment on above: Order Comment: Reaso n [...] with possible developing infiltrate. Invalid Interpretation Code [facility] Cardiomegaly and mod erate pulmonary vascular congestion. Atelectatic changes and possible infiltrate within the right lung base. [employer] Workstation ID: [id number] Invalid Interpretation Code [facility] Interface, Rad Bandar rangel Speechq - 09/06/2018 11:28 AM EDT EXAMINATION: [...] possible infiltrate within the right lung base. [employer] Workstation ID: [id number] Invalid Interpretation Code [facility] CBCon 09-05-2018 Erythrocyte distribution width Auto Entitic volume (RBC) 16.2 % High 11.6 - 14.8 % [facility] Hematocrit Auto Volume Fraction (Bld) 30.9 % Low 36 - 46 % [facility] Hemoglobin mass conc (Bld) 9.3 g/dL Low 12 - 16 g/dL [facility] Interpretation and review of laboratory results Abnormal Invalid Interpretation Code [facility] MCH Auto Entitic mass (RBC) 24.8 pg Low 26 - 34 pg [facility] MCHC Auto mass conc (RBC) 30.1 g/dL Low 31 - 37 g/dL [facility] MCV Auto Entitic volume (RBC) 82.4 fL Invalid Interpretation Code 80 - 100 fL [facility] Nucleated RBC #/vol (Bld) 0.00 10*3/uL Invalid Interpretation Code [facility] Nucleated RBC/100 WBC Ratio (Bld) 0.0 % Invalid Interpretation Code [facility] Platelet mean volume Auto Entitic volume (Bld) 11.9 fL Invalid Interpretation Code 9 - 15.5 fL [facility] Platelets Auto #/vol (Bld) 102 10*3/uL Low [facility] Comment on above: FEW CLUMPED PLATELET S SEEN RBC Auto #/vol (Bld) 3.75 10*6/uL Low [facility] WBC Auto #/vol (Bld) 4.66 10*3/uL Invalid Interpretation Code [facility] Chem 7on 09-05-2018 Anion gap 3 molar conc 17 mmol/L Invalid Interpretation Code 10 - 20 mmol/L [facility] Chloride molar conc 99 mmol/L Invalid Interpretation Code 98 - 108 mmol/L [facility] Creatinine mass conc 1.02 mg/dL Invalid Interpretation Code 0.4 - 1.1 mg/dL [facility] GFR/1.73 sq M predicted among non-blacks MDRD vol rate/area (S/P/Bld) The eGFR should be used for monitoring renal function only and not for medication dosing. Invalid Interpretation Code [facility] GFR/1.73 sq M.predicted CKD-EPI vol rate/area (S/P/Bld) 75 Invalid Interpretation Code >=60 mL/min/1.73 m2 [facility] Glucose mass conc 99 mg/dL Invalid Interpretation Code 65 - 99 mg/dL [facility] HCO3 molar conc 24 mmol/L Invalid Interpretation Code 21 - 32 mmol/L [facility] Interpretation and review of laboratory results Abnormal Invalid Interpretation Code [facility] Potassium molar conc 3.5 mmol/L Invalid Interpretation Code 3.5 - 5.1 mmol/L [facility] Sodium molar conc 136 mmol/L Invalid Interpretation Code 135 - 145 mmol/L [facility] Urea nitrogen mass conc 7 mg/dL Low 8 - 25 mg/dL [facility] Urea nitrogen/Creatinine mass ratio 6.9 mg/mg Low [facility] CBCon 09-04-2018 Erythrocyte distribution width Auto Entitic volume (RBC) 16.2 % High 11.6 - 14.8 % [facility] Hematocrit Auto Volume Fraction (Bld) 30.7 % Low 36 - 46 % [facility] Hemoglobin mass conc (Bld) 9.5 g/dL Low 12 - 16 g/dL [facility] Interpretation and review of laboratory results Abnormal Invalid Interpretation Code [facility] MCH Auto Entitic mass (RBC) 25.2 pg Low 26 - 34 pg [facility] MCHC Auto mass conc (RBC) 30.9 g/dL Low 31 - 37 g/dL [facility] MCV Auto Entitic volume (RBC) 81.4 fL Invalid Interpretation Code 80 - 100 fL [facility] Nucleated RBC #/vol (Bld) 0.00 10*3/uL Invalid Interpretation Code [facility] Nucleated RBC/100 WBC Ratio (Bld) 0.0 % Invalid Interpretation Code [facility] Platelet mean volume Auto Entitic volume (Bld) 11.2 fL Invalid Interpretation Code 9 - 15.5 fL [facility] Platelets Auto #/vol (Bld) 134 10*3/uL Low [facility] RBC Auto #/vol (Bld) 3.77 10*6/uL Low [facility] WBC Auto #/vol (Bld) 5.51 10*3/uL Invalid Interpretation Code [facility] CLOSTRIDIUM DIFFICILE TOXIN PCRon 09-04-2018 C. difficile toxin genes JYOTI+probe Ql (St) Negative Invalid Interpretation Code Toxigenic C.diff NEGATIVE [facility] Epidemiologic Marker [id number] Negative Invalid Interpretation Code [id number] PRESUMPTIVE NEGATIVE [facility] Interpretation and review of laboratory results Normal Invalid Interpretation Code [facility] Comprehensive Metabolic Pane guille 09-04-2018 Albumin mass conc 2.8 g/dL Low 3.2 - 5.2 g/dL [facility] ALP enzyme act/vol 69 U/L Invalid Interpretation Code 40 - 140 U/L [facility] ALT enzyme act/vol 13 U/L Invalid Interpretation Code 0 - 40 U/L [facility] Anion gap 3 molar conc 19 mmol/L Invalid Interpretation Code 10 - 20 mmol/L [facility] AST enzyme act/vol 33 U/L Invalid Interpretation Code 0 - 45 U/L [facility] Bilirubin mass conc 0.4 mg/dL Invalid Interpretation Code 0 - 1.3 mg/dL [facility] Calcium mass conc 8.6 mg/dL Invalid Interpretation Code 8.4 - 10.2 mg/dL [facility] Chloride molar conc 97 mmol/L Low 98 - 108 mmol/L [facility] Creatinine mass conc 1.11 mg/dL High 0.4 - 1 .1 mg/dL [facility] GFR/1.73 sq M predicted among non-blacks MDRD vol rate/area (S/P/Bld) The eGFR should be used for monitoring renal function only and not for medication dosing. Invalid Interpretation Code [facility] GFR/1.73 sq M.predicted CKD-EPI vol rate/area (S/P/Bld) 67 Invalid Interpretation Code >=60 mL/min/1.73 m2 [facility] Glucose mass conc 99 mg/dL Invalid Interpretation Code 65 - 99 mg/dL [facility] HCO3 molar conc 20 mmol/L Low 21 - 32 mmol/L [facility] Interpretation and review of laboratory results Abnormal Invalid Interpretation Code [facility] Potassium molar conc 3.8 mmol/L Invalid Interpretation Code 3.5 - 5.1 mmol/L [facility] Protein mass conc 6.9 g/dL Invalid Interpretation Code 6 - 8 g/dL [facility] Sodium molar conc 132 mmol/L Low 135 - 145 mmol/L [facility] Urea nitrogen mass conc 8 mg/dL Invalid Interpretation Code 8 - 25 mg/dL [facility] Urea nitrogen/Creatinine mass ratio 7.2 mg/mg Low [facility] BLOOD GAS, VBG WITH FULL GONZALEZ Michael 09-03-2018 Base excess Calculated molar conc (BldV) -1.4 Invalid Interpretation Code [facility] Calcium.ionized mass conc 4.5 mg/dL Invalid Interpretation Code 4.5 - 5.3 mg/dL [facility] Carboxyhemoglobin/Hem oglobin.total mass fraction (BldA) 1.2 Invalid Interpretation Code [facility] Comment on above: Reference Ranges: [facility] Non-smokers:<1.5% Smokers:1.5-5.0% Heavy Smokers:5.0-9.0% CO2 ppres (BldV) 29.3 Low [facility] Glucose mass conc 127 mg/dL High 65 - 99 mg/dL [facility] HCO3 molar conc (Bld) 21.1 mmol/L Low 24 - 2 8 mmol/L [facility] Hematocrit Volume Fraction (BldA) 30.6 % Low 36 - 46 % [facility] Hemoglobin mass conc (Bld) 9.9 g/dL Low 12 - 16 g/dL [facility] Interpretation and review of laboratory results Abnormal Invalid Interpretation Code [facility] Lactate molar conc 0.8 mmol/L Invalid Interpretation Code 0.6 - 2 mmol/L [facility] Methemoglobin/Hemoglo bin.total mass fraction (BldA) 0.3 % Invalid Interpretation Code 0 - 2 % [facility] Oxygen ppres (BldV) 62 High [facility] Oxygen saturation in Venous blood 92.6 % Invalid Interpretation Code [facility] Oxyhemoglobin/Hemoglo bin.total mass fraction (BldA) 91.3 % Low 94 - 98 % [facility] pH (BldV) 7.47 High [facility] Potassium molar conc 3.7 mmol/L Invalid Interpretation Code 3.5 - 5.1 mmol/L [facility] Sodium molar conc 132 mmol/L Low 135 - 145 mmol/L [facility] Type of Oxygen saturation device Room Air Invalid Interpretation Code [facility] BMPon 09-03-2018 Anion gap 3 molar conc 20 mmol/L Invalid Interpretation Code 10 - 20 mmol/L [facility] [facility] Calcium mass conc 9.3 mg/dL Invalid Interpretation Code 8.4 - 10.2 mg/dL [facility] Chloride molar conc 94 mmol/L Low 98 - 108 mmol/L [facility] Creatinine mass conc 1.19 mg/dL High 0.4 - 1 .1 mg/dL [facility] GFR/1.73 sq M predicted among non-blacks MDRD vol rate/area (S/P/Bld) The eGFR should be used for monitoring renal function only and not for medication dosing. Invalid Interpretation Code [facility] GFR/1.73 sq M.predicted CKD-EPI vol rate/area (S/P/Bld) 62 Invalid Interpretation Code >=60 mL/min/1.73 m2 [facility] Glucose mass conc 142 mg/dL High 65 - 99 mg/dL [facility] HCO3 molar conc 19 mmol/L Low 21 - 32 mmol/L [facility] Interpretation and review of laboratory results Abnormal Invalid Interpretation Code [facility] Potassium molar conc 4.2 mmol/L Invalid Interpretation Code 3.5 - 5.1 mmol/L [facility] Comment on above: Specimen slightly he molyzed Sodium molar conc 129 mmol/L Low 135 - 145 mmol/L [facility] Urea nitrogen mass conc 10 mg/dL Invalid Interpretation Code 8 - 25 mg/dL [facility] Urea nitrogen/Creatinine mass ratio 8.4 mg/mg Low [facility] CBC WITH AUTO DIFFERENTIALon 09-03-2018 Basophils Auto #/vol (Bld) 0.03 10*3/uL Invalid Interpretation Code [facility] Basophils/100 WBC Auto (Bld) 0.2 % Invalid Interpretation Code [facility] Eosinophils Auto #/vol (Bld) 0.00 10*3/uL Invalid Interpretation Code [facility] Eosinophils/100 WBC Auto (Bld) 0.0 % Invalid Interpretation Code [facility] Erythrocyte distribution width Auto Entitic volume (RBC) 15.7 % High 11.6 - 14.8 % [facility] Hematocrit Auto Volume Fraction (Bld) 32.8 % Low 36 - 46 % [facility] Hemoglobin mass conc (Bld) 10.6 g/dL Low 12 - 16 g/dL [facility] Immature granulocytes #/vol (Bld) 0.13 10*3/uL Invalid Interpretation Code [facility] Immature granulocytes/100 WBC (Bld) 1.00 % Invalid Interpretation Code [facility] Comment on above: The IG parameter is the percentage of metamyelocytes, myelocytes, and promyelocytes. Interpretation and review of laboratory results Abnormal Invalid Interpretation Code [facility] Lymphocytes Auto #/vol (Bld) 0.61 10*3/uL Low [facility] Lymphocytes/100 WBC Auto (Bld) 4.8 % Invalid Interpretation Code [facility] MCH Auto Entitic mass (RBC) 25.0 pg Low 26 - 34 pg [facility] MCHC Auto mass conc (RBC) 32.3 g/dL Invalid Interpretation Code 31 - 37 g/dL [facility] MCV Auto Entitic volume (RBC) 77.4 fL Low 80 - 100 fL [facility] Monocytes Auto #/vol (Bld) 1.18 10*3/uL High [facility] Monocytes/100 WBC Auto (Bld) 9.2 % Invalid Interpretation Code [facility] Neutrophils Auto #/vol (Bld) 10.81 10*3/uL High [facility] Neutrophils/100 WBC Auto (Bld) 84.8 % Invalid Interpretation Code [facility] Nucleated RBC #/vol (Bld) 0.00 10*3/uL Invalid Interpretation Code [facility] Nucleated RBC/100 WBC Ratio (Bld) 0.0 % Invalid Interpretation Code [facility] Platelet mean volume Auto Entitic volume (Bld) 10.9 fL Invalid Interpretation Code 9 - 15.5 fL [facility] Platelets Auto #/vol (Bld) 179 10*3/uL Invalid Interpretation Code [facility] RBC Auto #/vol (Bld) 4.24 10*6/uL Invalid Interpretation Code [facility] WBC Auto #/vol (Bld) 12.76 10*3/uL High [facility] CT ABDOMEN PELVIS WITH IV CO NTRAST ONLYon 09-03-2018 CT ABDOMEN PELVIS WITH IV CONTRAST ONLY EXAMINATION:CT OF THE ABDOMEN AND PELVIS WITH [id number]/30/2018 11:48 amTECHNIQUE:CT of the abdomen and pelvis [...] in the right hemicolon, suggesting diarrhea.Workstation ID: [id number] by: RANJAN GRANGER on SunSep 03, 2018 11:54:10 AM EDTTranscribed by: RANJAN GRANGER on SunSep 03, 2018 11:54:10 AM EDTFinalized by: RANJAN GRANGER on SunSep 03, 2018 11:54:10 AM EDT [facility] Comment on above: Order Comment: Reaso n [...] nor suspicious osseous lesions. Invalid Interpretation Code [facility] 1. Findings of bilat eral pyelonephritis, appearing more severe on the right. 2. Fluid distention of a few small bowel loops could be related to mild enteritis but could also be physiologic or related to recent ingestion. Of note, there are no findings suggestive of active Crohn disease. 3. Liquid stool in the right hemicolon, suggesting diarrhea. Workstation ID: [id number] Invalid Interpretation Code [employer] [facility] Interface, Rad In Mickey ji Speechq - 09/03/2018 11:56 AM EDT [...] Workstation ID: [id number] Invalid Interpretation Code [facility] Hepatic Function Panel (LFT) on 09-03-2018 Albumin mass conc 3.8 g/dL Invalid Interpretation Code 3.2 - 5.2 g/dL [facility] ALP enzyme act/vol 89 U/L Invalid Interpretation Code 40 - 140 U/L [facility] ALT enzyme act/vol 14 U/L Invalid Interpretation Code 0 - 40 U/L [facility] AST enzyme act/vol 41 U/L Invalid Interpretation Code 0 - 45 U/L [facility] Comment on above: Specimen slightly he molyzed Bilirubin mass conc 0.7 mg/dL Invalid Interpretation Code 0 - 1.3 mg/dL [facility] Bilirubin.conjugated mass conc mg/dL Invalid Interpretation Code 0 - 0.4 mg/dL [facility] Interpretation and review of laboratory results Abnormal Invalid Interpretation Code [facility] Protein mass conc 8.2 g/dL High 6 - 8 g/dL [facility] Lactic Acid, Plasmaon 2017 Interpretation and review of laboratory results Normal Invalid Interpretation Code [facility] Lactate molar conc 1.2 mmol/L Invalid Interpretation Code 0.6 - 2 mmol/L [facility] Lipaseon 09-03-2018 Interpretation and review of laboratory results Abnormal Invalid Interpretation Code [facility] Lipase enzyme act/vol 10 U/L Low 15 - 65 U/L [facility] Otheron 09-03-2018 Extra Tube Hold for add-ons. Invalid Interpretation Code [facility] Comment on above: Auto resulted. POC Urine Pregnancyon 2017 HCG ( test) Ql (U) Negative Invalid Interpretation Code Negative [facility] Internal Control Pass Invalid Interpretation Code [facility] Interpretation and review of laboratory results Normal Invalid Interpretation Code [facility] Specific gravity Relative Density (U) Invalid Interpretation Code [facility] URINALYSISon 09-03-2018 Bacteria Auto Ql (U) Many Abnormal None Se en /hpf [facility] Bilirubin Ql (U) Negative Invalid Interpretation Code Negative [facility] Clarity Refractometry automated Nom (U) Cloudy Abnormal Clear [facility] Color Auto Nom (U) Yellow Invalid Interpretation Code Colorless, Yellow [facility] Epithelial cells.squamous Auto #/area (Urine sed) 4 Invalid Interpretation Code [facility] Glucose Automated test strip mass conc (U) Negative Invalid Interpretation Code Negative mg/dL [facility] Hemoglobin Automated test strip Ql (U) Large Abnormal Negative [facility] Hyaline casts Auto #/area (Urine sed) 0-2 Invalid Interpretation Code 0 - 2 /lpf [facility] Interpretation and review of laboratory results Abnormal Invalid Interpretation Code [facility] Ketones mass conc (U) Trace Abnormal Negati ve mg/dL [facility] Leukocyte esterase Automated test strip Ql (U) Large Abnormal Negative [facility] Mucus Auto #/area (Urine sed) Rare Invalid Interpretation Code None Seen, Rare /lpf [facility] Nitrite Automated test strip Ql (U) Positive Abnormal Negative [facility] pH Test strip (U) 5.0 [pH] Invalid Interpretation Code [facility] Protein mass conc (U) 100 Abnormal Negati ve mg/dL [facility] RBC Auto #/area (Urine sed) 4 High [facility] Specific gravity Automated test strip Relative Density (U) 1.015 Invalid Interpretation Code [facility] Urobilinogen Test strip Qn (U) <2.0 Invalid Interpretation Code <2.0 mg/dL [facility] WBC Auto #/area (Urine sed) >180 High [facility] Microscopic examinat ion is performed on all urinalysis samples and only positive findings are reported. The test for blood on the chemical analytic portion of urinalysis may also be positive due to hemoglobinuria and myoglobinuria and if red blood cells are present they are quantified by microscopic examination. Invalid Interpretation Code [facility] Cult,Urineon 09-02-2018 Cult,Urine Specimen Description .URINE Special Requests NOT REPORTED Culture ESCHERICHIA COLI >[id number] CFU/ML Report Status FINAL 09/02/2018 SUSCEPTIBILITY Organism [...] Trimethoprim/Sulfa >=320 RESISTANT Piperacillin/Tazobactam <=4 SUSCEPTIBLE Normal [facility] Comment on above: Performed By: #### U RC #### [facility] [address] [place], [place] [id number] [facility] [address] [place] [address] CBC with Diffon 08-31-2018 Abs. Basophil 0.00 k/uL Normal 0.0-0.2 [facility] Comment on above: Performed By: #### C DP, CP #### [facility] [address] [place] [address] Abs.Neutrophil (Seg) 12.70 k/uL High 2.5-7.0 [facility] Comment on above: Performed By: #### C DP, CP #### [facility] [address] [place] [address] Auto Diff Performed YES Normal [facility] Comment on above: Performed By: #### C DP, CP #### [facility] [address] [place] [address] Basophils/100 WBC (Bld) 0 % Normal 0-2 [facility] Comment on above: Performed By: #### C DP, CP #### [facility] [address] [place] [address] Eosinophils #/vol (Bld) 0.00 10*3/uL Normal 0.0-0.4 [facility] Comment on above: Performed By: #### C DP, CP #### [facility] [address] [place] [address] Eosinophils/100 WBC (Bld) 0 % Normal 0-5 [facility] Comment on above: Performed By: #### C DP, CP #### [facility] [address] [place] [address] Erythrocyte distribution width Ratio (RBC) 16.8 % High 12.1-15.2 [facility] Comment on above: Performed By: #### C DP, CP #### [facility] [address] [facility] [place] [address] Hematocrit Volume Fraction (Bld) 41.0 % Normal 36-46 [facility] Comment on above: Performed By: #### C DP, CP #### [facility] [address] [facility] [place] [address] Hemoglobin mass conc (Bld) 13.2 g/dL Normal 12.0-16.0 [facility] Comment on above: Performed By: #### C DP, CP #### [facility] [address] [facility] [place] [address] Lymphocytes #/vol (Bld) 2.10 10*3/uL Normal 1.0-4.8 [facility] Comment on above: Performed By: #### C DP, CP #### [facility] [address] [facility] [place] [address] Lymphocytes/100 WBC (Bld) 13 % Low 15-40 [facility] Comment on above: Performed By: #### C DP, CP #### [facility] [address] [facility] [place] [address] MCH Entitic mass (RBC) 25.0 pg Low 26-34 [facility] Comment on above: Performed By: #### C DP, CP #### [facility] [address] [facility] [place] [address] MCHC mass conc (RBC) 32.2 g/dL Normal 31-37 [facility] Comment on above: Performed By: #### C DP, CP #### [facility] [address] [facility] [place] [address] MCV Entitic volume (RBC) 77.7 fL Low 80-100 [facility] Comment on above: Performed By: #### C DP, CP #### [facility] [address] [facility] [place] [address] Monocytes #/vol (Bld) 1.20 10*3/uL High 0.0-1.0 [facility] Comment on above: Performed By: #### C DP, CP #### [facility] [address] [place] [address] Monocytes/100 WBC (Bld) 8 % Normal 4-8 [facility] Comment on above: Performed By: #### C DP, CP #### [facility] [address] [place] [address] Neutrophil (Seg) 79 % High 47-75 [facility] Comment on above: Performed By: #### C DP, CP #### [place] [address] Platelets #/vol (Bld) 312 10*3/uL Normal 140-450 [facility] Comment on above: Performed By: #### C DP, CP #### [facility] [address] [place] [address] RBC #/vol (Bld) 5.28 10*6/uL High 4.0-5.2 [facility] Comment on above: Performed By: #### C DP, CP #### [address] [address] WBC #/vol (Bld) 16.1 10*3/uL High 3.5-11.0 [facility] Comment on above: Performed By: #### C DP, CP #### [facility] [address] [place] [address] Abs.Imm.Granulocyte NOT REPORTED Normal 0.00-0.30 [facility] Comment on above: Performed By: #### C DP, CP #### [facility] [address] [place] [id number] Immature granulocytes #/vol (Bld) NOT REPORTED Normal 0 [facility] Comment on above: Performed By: #### C DP, CP #### [facility] [address] [facility] [place] [address] NRBC Automated NOT REPORTED Normal [facility] Comment on above: Performed By: #### C DP, CP #### [facility] [address] [facility] [place] [address] Platelet mean volume Entitic volume (Bld) NOT REPORTED Normal 6.0-12.0 [facility] Comment on above: Performed By: #### C DP, CP #### [facility] [address] [facility] [place] [address] Platelets #/vol (Bld) NOT REPORTED Normal [facility] Comment on above: Performed By: #### C DP, CP #### [facility] [address] [facility] [place] [address] RBC morphology finding Nom (Bld) NOT REPORTED Normal [facility] Comment on above: Performed By: #### C DP, CP #### [facility] [address] [place] [address] WBC Morphology NOT REPORTED Normal [facility] Comment on above: Performed By: #### C DP, CP #### [facility] [address] [facility] [place] [address] CT ABDOMEN PELVIS WO CONTRAS Ton 08-31-2018 [...] Maycol Hedrick MD 08/31/18 Final result Normal [facility] Comp Metabolic Profon 2017 (cont.) Normal [facility] Comment on above: Result Comment: Aver age GFR for 20-29 years old: 116 mL/min/1.73sq m Chronic Kidney Disease: <60 mL/min/1.73sq m Kidney failure: <15 mL/min/1.73sq m eGFR calculated using average adult body mass. Additional eGFR calculator available at: http://www.[employer]/multiple_crcl_2012.htm Performed By: #### C DP, CP #### [facility] [address] [place] [address] Albumin mass conc 4.4 g/dL Normal 3.5-5.2 [facility] Comment on above: Performed By: #### C DP, CP #### [facility] [address] [place] [address] Alkaline Phos 99 U/L Normal 35-104 [facility] Comment on above: Performed By: #### C DP, CP #### [facility] [address] [place] [address] ALT enzyme act/vol 12 U/L Normal 5-33 [facility] Comment on above: Performed By: #### C DP, CP #### [facility] [address] [place] [address] Anion gap molar conc 14 mmol/L Normal 9-17 [facility] Comment on above: Performed By: #### C DP, CP #### [facility] [address] [facility] [place] [address] AST enzyme act/vol 12 U/L Normal <32 [facility] Comment on above: Performed By: #### C DP, CP #### [facility] [address] [facility] [place] [address] Bilirubin Ql (U) 1.43 mg/dL High 0.30-1.20 [facility] Comment on above: Performed By: #### C DP, CP #### [facility] [address] [facility] [place] [address] BUN/CRE Ratio 7 Low 9-20 [facility] Comment on above: Performed By: #### C DP, CP #### [facility] [address] [facility] [place] [address] Calcium mass conc 9.9 mg/dL Normal 8.6-10.4 [facility] Comment on above: Performed By: #### C DP, CP #### [facility] [address] [facility] [place] [address] Chloride molar conc 99 mmol/L Normal 98-107 [facility] Comment on above: Performed By: #### C DP, CP #### [facility] [address] [facility] [place] [address] CO2 molar conc 22 mmol/L Normal 20-31 [facility] Comment on above: Performed By: #### C DP, CP #### [facility] [address] [facility] [place] [address] Creatinine mass conc 1.12 mg/dL High 0.50-0.90 [facility] Comment on above: Performed By: #### C DP, CP #### [facility] [address] [facility] [place] [address] GFR, Amer >60 Normal >60 [facility] Comment on above: Performed By: #### C DP, CP #### [facility] [address] [place] [address] GFR,non Amer 58 mL/min Low >60 [facility] Comment on above: Performed By: #### C DP, CP #### [facility] [address] [place] [address] Glucose mass conc 155 mg/dL High 70-99 [facility] Comment on above: Performed By: #### C DP, CP #### [facility] [address] [place] [address] Potassium molar conc 3.5 mmol/L Low 3.7-5.3 [facility] Comment on above: Performed By: #### C DP, CP #### [facility] [address] [facility] [place] [address] Protein mass conc 8.6 g/dL High 6.4-8.3 [facility] Comment on above: Performed By: #### C DP, CP #### [facility] [address] [facility] [place] [address] Sodium molar conc 135 mmol/L Normal 135-144 [facility] Comment on above: Performed By: #### C DP, CP #### [facility] [address] [facility] [place] [address] Urea nitrogen mass conc 8 mg/dL Normal 6-20 [facility] Comment on above: Performed By: #### C DP, CP #### [facility] [address] [facility] [place] [address] Albumin/Globulin mass ratio NOT REPORTED Normal 1.0-2.5 [facility] Comment on above: Performed By: #### C DP, CP #### [facility] [address] [facility] [place] [address] Staging: NOT REPORTED Normal [facility] Comment on above: Performed By: #### C DP, CP #### [facility] [address] [facility] [place] [address] Urinalysis, Routineon 2017 Acetoacetic Acid,Ur Negative Normal NEG [facility] Comment on above: Performed By: #### U KAELYN OrtizO #### [facility] [address] [facility] [place] [address] Bilirubin, SemiQt,Ur Negative Normal NEG [facility] Comment on above: Performed By: #### U KAELYN OrtizO #### [facility] [address] [facility] [place] [address] Color Nom (U) YELLOW Normal YEL [facility] Comment on above: Performed By: #### SAMEERA Carcamo #### [facility] [address] [facility] [place] [address] Comment Normal [facility] Comment on above: Performed By: #### SAMEERA Carcamo #### [facility] [address] [facility] [place] [address] Glucose,Semi-qnt,Ur Negative Normal NEG [facility] Comment on above: Performed By: #### KAELYN CarcamoO #### [facility] [address] [facility] [place] [address] Hemoglobin, Ur 3+ Abnormal NEG [facility] Comment on above: Performed By: #### U GINA OrtizICAO #### [facility] [address] [facility] [place] [address] Leuckocyte Esterase 3+ Abnormal NEG [facility] Comment on above: Performed By: #### U GINA OrtizICAO #### [facility] [address] [facility] [place] [address] Nitrite,Ur Negative Normal NEG [facility] Comment on above: Performed By: #### U GINA OrtizICAO #### [facility] [address] [facility] [place] [address] PH,Ur 6.0 Normal 5.0-8.0 [facility] Comment on above: Performed By: #### SAMEERA Carcamo #### [facility] [address] [facility] [place] [address] Protein mass conc (U) 2+ Abnormal NEG [facility] Comment on above: Performed By: #### SAMEERA Carcamo #### [facility] [address] [facility] [place] [address] Spec. [place],Ur 1.020 Normal 1.005-1.030 [facility] Comment on above: Performed By: #### SAMEERA Carcamo #### [facility] [address] [facility] [place] [address] Turbidity CLEAR Normal CLEAR [facility] Comment on above: Performed By: #### SAMEERA Carcamo #### [facility] [address] [facility] [place] [address] Urobilinogen,Ur Normal Normal NORM [facility] Comment on above: Performed By: #### SAMEERA Carcamo #### [facility] [facility] [address] [place] [address] Urinalysis,Microon 8 ----- Normal [facility] Comment on above: Performed By: #### SAMEERA Carcamo #### [facility] [address] [facility] [place] [address] Bacteria LM.HPF #/area (Urine sed) 1+ Abnormal NONE [facility] Comment on above: Performed By: #### SAMEERA Carcamo #### [facility] [address] [facility] [place] [address] Epithelial cells LM.HPF #/area (Urine sed) 2 TO 5 Normal [facility] Comment on above: Performed By: #### SAMEERA Carcamo #### [facility] [address] [address] RBC #/vol (U) 50 TO 100 Normal 0-2 [facility] Comment on above: Performed By: #### U A, UMICAO #### [facility] [address] [facility] [place] [address] WBC #/vol (U) 20 TO 50 Normal 0 [facility] Comment on above: Performed By: #### U A, UMICAO #### [facility] [address] [facility] [place] [address] Amorphous sediment LM Ql (Urine sed) NOT REPORTED Normal NONE [facility] Comment on above: Performed By: #### U Angel, UMICAO #### [facility] [address] [facility] [place] [address] Casts LM.LPF #/area (Urine sed) NOT REPORTED Normal [facility] Comment on above: Performed By: #### U Angel, KAELYNO #### [facility] [address] [facility] [place] [address] Crystals LM Nom (Urine sed) NOT REPORTED Normal NONE [facility] Comment on above: Performed By: #### U Angel, UMICAO #### [facility] [address] [facility] [place] [address] Epithelial, Renal NOT REPORTED Normal 0 [facility] Comment on above: Performed By: #### U Angel, UMICAO #### [facility] [address] [facility] [place] [address] Mucus Strands NOT REPORTED Normal NONE [facility] Comment on above: Performed By: #### U A, UMICAO #### [facility] [address] [facility] [place] [address] Other Observations NOT REPORTED Normal [facility] Comment on above: Performed By: #### U A, UMICAO #### [facility] [address] [facility] [place] [address] Trichomonas NOT REPORTED Normal NONE [facility] Comment on above: Performed By: #### U A, UMICAO #### [facility] [address] [place] [address] Yeast LM Ql (Urine sed) NOT REPORTED Normal NONE [facility] Comment on above: Performed By: #### U A, UMICAO #### [facility] [address] [place] [address] Alcohol, Medicalon 8 Ethanol mass conc Negative Normal [facility] Comment on above: Performed By: #### A LC, HCGQL ####Unless otherwise noted, all testing performed by [place] [phone]: [id number] Director: Geronimo Ibrahim M.D. Drugs of Abuse, Urineon Amphetamines,Ur None Detected Normal None Detected [facility] Comment on above: Performed By: #### D RUGSCRU ####Unless otherwise noted, all testing performed by [address] [phone]: [id number] Director: Geronimo Ibrahim M.D. Barbiturates,Ur None Detected Normal None Detected [facility] Comment on above: Performed By: #### D RUGSCRU ####Unless otherwise noted, all testing performed by [place] [phone]: [id number] Director: Geronimo Ibrahim M.D. Benzodiazepine,Ur None Detected Normal None Detected [facility] Comment on above: Performed By: #### D RUGSCRU ####Unless otherwise noted, all testing performed by [address], [place] [phone]: [id number] Director: Geronimo Ibrahim M.D. Cannabinoids,Ur Positive Abnormal None Detected [facility] Comment on above: Performed By: #### D RUGSCRU ####Unless otherwise noted, all testing performed by [address] [phone]: [id number] Director: Geronimo Ibrahim M.D. Cocaine,Ur None Detected Normal None Detected [facility] Comment on above: Performed By: #### D FAUSTINO ####Unless otherwise noted, all testing performed by [address] [phone]: [id number] Director: Geronimo Ibrahim M.D. DOA Cutoffs See comment. Normal [facility] Comment on above: Result Comment: Drug s of Abuse, Urine Presumptive Positive Cutoff Concentrations.Amphetamine/Methamphetamine: 1000 ng/mlBarbiturates: 200 ng/mlBenzodiazepines and metabolities: 200 ng/mlCannabinoids: 50 ng/mlCocaine/Benzoylecgonine: 300 ng/mlMethadone:300 ng/mlOpiates: 300 ng/mlOxycodone/Oxymorphone: 100 ng/ml Performed By: #### D RUGSCRU ####Unless otherwise noted, all testing performed by [address] [phone]: [id number] Director: Geronimo Ibrahim M.D. Methadone,Ur None Detected Normal None [facility] Comment on above: Performed By: #### D RUGSCRU ####Unless otherwise noted, all testing performed by [address] [phone]: [id number] Director: Geronimo Ibrahim M.D. Opiates,Ur None Detected Normal None Detected [facility] Comment on above: Performed By: #### D RUGSCRU ####Unless otherwise noted, all testing performed by [address] [phone]: [id number] Director: Geronimo Ibrahim M.D. Oxycodone, Urine None Detected Normal None Detected [facility] Comment on above: Result Comment: THES E DRUGS OF ABUSE TESTS ARE PROVIDED A MEDICAL SCREENING ONLY.POSITIVE RESULTS ARENOT CONFIRMED BY GCMS Performed By: #### D RUGSCRU ####Unless otherwise noted, all testing performed by [address] [phone]: [id number] Director: Geronimo Ibrahim M.D. HCG, Qualitativeon 8 HCG, Qualitative Negative Normal [facility] Comment on above: Result Comment: Nega tive: The result is less than or equal to 5 mIU/mL of HCG. Performed By: #### A LC, HCGQL ####Unless otherwise noted, all testing performed by [address] [phone]: [id number] Director: Geronimo Ibrahim M.D. CBCon 07-31-2018 ABSOLUTE BAS 0.1 X10 Normal [facility] Comment on above: Result Comment: Test ing performed at [place] [address] Performed By: #### A CBC, CHEM7F, BHCG2 ####[place] [address] ABSOLUTE EOS 0.10 X10 Normal [facility] Comment on above: Performed By: #### A CBC, CHEM7F, BHCG2 ####[place] [address] ABSOLUTE NEUTROPHIL COUNT 5.3 x10 Normal 1.0-7.0 [facility] Comment on above: Performed By: #### A CBC, CHEM7F, BHCG2 ####[place] [address] Basophils/100 WBC Auto (Bld) 0.7 % Normal 0.0-2.0 [facility] Comment on above: Performed By: #### A CBC, CHEM7F, BHCG2 ####[place] [address] DTYPE AUTO DIFF Normal [facility] Comment on above: Performed By: #### A CBC, CHEM7F, BHCG2 ####[place] [address] Eosinophils/100 WBC Auto (Bld) 1.4 % Normal 0.0-11.0 [facility] Comment on above: Performed By: #### A CBC, CHEM7F, BHCG2 ####[place] [address] Lymphocytes Auto #/vol (Bld) 1.70 X10 Normal [facility] Comment on above: Performed By: #### A CBC, CHEM7F, BHCG2 ####[place] [address] Lymphocytes/100 WBC Auto (Bld) 21.8 % Normal 20.0-55.0 [facility] Comment on above: Performed By: #### A CBC, CHEM7F, BHCG2 ####[place] [address] Monocytes Auto #/vol (Bld) 0.4 X10 Normal [facility] Comment on above: Performed By: #### A CBC, CHEM7F, BHCG2 ####[place] [address] Monocytes/100 WBC Auto (Bld) 5.8 % Normal 0.0-10.0 [facility] Comment on above: Performed By: #### A CBC, CHEM7F, BHCG2 ####[place] [address] Neutrophils/100 WBC Auto (Bld) 70.3 % Normal 37.0-75.0 [facility] Comment on above: Performed By: #### A CBC, CHEM7F, BHCG2 ####[place] [address] Erythrocyte distribution width Auto Ratio (RBC) 15.6 % High 11.5-14.5 [facility] Comment on above: Performed By: #### A CBC, CHEM7F, BHCG2 ####[place] [address] Hematocrit Auto Volume Fraction (Bld) 39.8 % Normal 36.0-48.0 [facility] Comment on above: Performed By: #### A CBC, CHEM7F, BHCG2 ####[place] [address] Hemoglobin mass conc (Bld) 13.3 g/dL Normal 12.0-16.0 [facility] Comment on above: Performed By: #### A CBC, CHEM7F, BHCG2 ####[place] [address] MCH Auto Entitic mass (RBC) 25.3 pg Low 26.0-35.0 [facility] Comment on above: Performed By: #### A CBC, CHEM7F, BHCG2 ####[place] [address] MCHC Auto mass conc (RBC) 33.4 g/dL Normal 27.0-37.0 [facility] Comment on above: Performed By: #### A CBC, CHEM7F, BHCG2 ####[place] [address] MCV Auto Entitic volume (RBC) 75.8 fL Low 80.0-100.0 [facility] Comment on above: Performed By: #### A CBC, CHEM7F, BHCG2 ####[place] [address] Platelet mean volume Auto Entitic volume (Bld) 8.2 fL Normal 7.4-11.0 [facility] Comment on above: Result Comment: Test ing performed at [place] [address] Performed By: #### A CBC, CHEM7F, BHCG2 ####[place] [address] Platelets Auto #/vol (Bld) 263 /cmm Normal 130.0-400.0 [facility] Comment on above: Performed By: #### A CBC, CHEM7F, BHCG2 ####[place] [address] RBC Auto #/vol (Bld) 5.25 /cmm Normal 4.0-5.4 [facility] Comment on above: Performed By: #### A CBC, CHEM7F, BHCG2 ####[place] [address] WBC Auto #/vol (Bld) 7.6 /cmm Normal 3.6-11.0 [facility] Comment on above: Performed By: #### A CBC, CHEM7F, BHCG2 ####[place] [address] CHEM 7 FASTINGon 07-31-2018 Chloride molar conc 104 mmol/L Normal 98-107 [facility] Comment on above: Performed By: #### A CBC, CHEM7F, BHCG2 ####[place] [address] CO2 molar conc 23 mmol/L Normal 22-30 [facility] Comment on above: Performed By: #### A CBC, CHEM7F, BHCG2 ####[place] [address] Creatinine mass conc 0.8 mg/dL Normal 0.7-1.2 [facility] Comment on above: Performed By: #### A CBC, CHEM7F, BHCG2 ####[place] [address] EST. GFR, >60 Normal [facility] Comment on above: Performed By: #### A CBC, CHEM7F, BHCG2 ####[place] [address] EST. GFR,Non >60 Normal [facility] Comment on above: Performed By: #### A CBC, CHEM7F, BHCG2 ####[place] [address] GFR/1.73 sq M predicted among non-blacks MDRD vol rate/area (S/P/Bld) Average GFR for 20-29 years old = 116. Normal [facility] Comment on above: Result Comment: Child Adolescent Psychiatrist frantz Kidney disease, GFR = <60.Kidney failure, GFR = <15.The GFR estimate is not adjusted for extreme body surface area or acute process, nor has it been validated for women or ethnic groups other than and .Testing performed at [place] [address] Performed By: #### A CBC, CHEM7F, BHCG2 ####[place] [address] Glucose mass conc 99 mg/dL Normal 70-100 [facility] Comment on above: Result Comment: NORM AL <100 mg/dLPREDIABETES 101-126 mg/dLDIABETES 126 mg/dL or higher Performed By: #### A CBC, CHEM7F, BHCG2 ####[place] [address] Potassium molar conc 4.1 mmol/L Normal 3.5-5.1 [facility] Comment on above: Performed By: #### A CBC, CHEM7F, BHCG2 ####[place] [address] Sodium molar conc 139 mmol/L Normal 137-145 [facility] Comment on above: Performed By: #### A CBC, CHEM7F, BHCG2 ####[place] [address] Urea nitrogen mass conc (Bld) 8 mg/dL Normal 7-20 [facility] Comment on above: Performed By: #### A CBC, CHEM7F, BHCG2 ####[place] [address] CT ABDOMEN/PELVIS WITHOUT CO NTRASTon 07-31-2018 CT [...] seen to account for the symptoms. Normal [facility] ESRon 07-31-2018 ESR Velocity (Bld) 79 mm/h High 0-15 [facility] Comment on above: Result Comment: Test ing performed at [place] [address] Performed By: #### A CBC, CHEM7F, BHCG2 ####[place] [address] LACTIC ACIDon 07-31-2018 Lactate molar conc 1.2 mmol/L Normal 0.7-2.0 [facility] Comment on above: Result Comment: Test ing performed at [place] [address] Performed By: #### A CBC, CHEM7F, BHCG2 ####[place] [address] LIPASE,SERUMon 07-31-2018 LIPASE,SERUM 50 U/L Normal 23-300 [facility] Comment on above: Result Comment: Test ing performed at [place] [address] Performed By: #### A CBC, CHEM7F, BHCG2 ####[place] [address] LIVER PANELon 07-31-2018 Albumin mass conc 4.3 g/dL Normal 2.9-5.3 [facility] Comment on above: Performed By: #### A CBC, CHEM7F, BHCG2 ####[place] [address] ALP enzyme act/vol 98 U/L Normal 38-126 [facility] Comment on above: Performed By: #### A CBC, CHEM7F, BHCG2 ####[place] [address] ALT enzyme act/vol 23 U/L Normal 9-52 [facility] Comment on above: Result Comment: Test ing performed at [place] [address] Performed By: #### A CBC, CHEM7F, BHCG2 ####[place] [address] AST enzyme act/vol 19 U/L Normal 14-36 [facility] Comment on above: Performed By: #### A CBC, CHEM7F, BHCG2 ####[place] [address] Bilirubin mass conc 1.4 mg/dL High 0.2-1.3 [facility] Comment on above: Performed By: #### A CBC, CHEM7F, BHCG2 ####Testing performed at [address] [place] [address] Bilirubin.direct mass conc 0.2 mg/dL Normal 0-0.4 [facility] Comment on above: Performed By: #### A CBC, CHEM7F, BHCG2 ####Testing performed at [address] [address] Protein mass conc 7.5 g/dL Normal 6.3-8.2 [facility] Comment on above: Performed By: #### A CBC, CHEM7F, BHCG2 ####Testing performed at [address] [address] CBCon 07-26-2018 ABSOLUTE BAS 0.1 X10 Normal [facility]3] Comment on above: Performed By: #### L IPA2, ACBC, CMPF, ESR ####Testing performed at [address] [address] ABSOLUTE EOS 0.10 X10 Normal [facility]3] Comment on above: Performed By: #### L IPA2, ACBC, CMPF, ESR ####Testing performed at [address] [address] ABSOLUTE NEUTROPHIL COUNT 5.4 x10 Normal 1.0-7.0 [facility]3] Comment on above: Performed By: #### L IPA2, ACBC, CMPF, ESR ####Testing performed at [address] [address] Basophils/100 WBC Auto (Bld) 0.8 % Normal 0.0-2.0 [facility]3] Comment on above: Performed By: #### L IPA2, ACBC, CMPF, ESR ####Testing performed at [address] [address] DTYPE AUTO DIFF Normal [facility]3] Comment on above: Performed By: #### L IPA2, ACBC, CMPF, ESR ####Testing performed at [address] [address] Eosinophils/100 WBC Auto (Bld) 1.6 % Normal 0.0-11.0 [facility]3] Comment on above: Performed By: #### L IPA2, ACBC, CMPF, ESR ####Testing performed at [address] [address] Lymphocytes Auto #/vol (Bld) 2.10 X10 Normal [facility]3] Comment on above: Performed By: #### L IPA2, ACBC, CMPF, ESR ####Testing performed at [address] [address] Lymphocytes/100 WBC Auto (Bld) 25.8 % Normal 20.0-55.0 [facility]3] Comment on above: Performed By: #### L IPA2, ACBC, CMPF, ESR ####Testing performed at [address] [address] Monocytes Auto #/vol (Bld) 0.4 X10 Normal [facility]3] Comment on above: Performed By: #### L IPA2, ACBC, CMPF, ESR ####Testing performed at [address] [address] Monocytes/100 WBC Auto (Bld) 4.8 % Normal 0.0-10.0 [facility]3] Comment on above: Performed By: #### L IPA2, ACBC, CMPF, ESR ####Testing performed at [address] [address] Neutrophils/100 WBC Auto (Bld) 67.0 % Normal 37.0-75.0 [facility]3] Comment on above: Performed By: #### L IPA2, ACBC, CMPF, ESR ####Testing performed at [address] [address] Erythrocyte distribution width Auto Ratio (RBC) 15.6 % High 11.5-14.5 [facility]3] Comment on above: Performed By: #### L IPA2, ACBC, CMPF, ESR ####Testing performed at [address] [address] Hematocrit Auto Volume Fraction (Bld) 38.8 % Normal 36.0-48.0 [facility]3] Comment on above: Performed By: #### L IPA2, ACBC, CMPF, ESR ####Testing performed at [address] [address] Hemoglobin mass conc (Bld) 13.0 g/dL Normal 12.0-16.0 [facility]3] Comment on above: Performed By: #### L IPA2, ACBC, CMPF, ESR ####Testing performed at [place] [phone] MCH Auto Entitic mass (RBC) 25.6 pg Low 26.0-35.0 [facility]3] Comment on above: Performed By: #### L IPA2, ACBC, CMPF, ESR ####[place] [address] MCHC Auto mass conc (RBC) 33.5 g/dL Normal 27.0-37.0 [facility]3] Comment on above: Performed By: #### L IPA2, ACBC, CMPF, ESR ####[place] [address] MCV Auto Entitic volume (RBC) 76.3 fL Low 80.0-100.0 [facility]3] Comment on above: Performed By: #### L IPA2, ACBC, CMPF, ESR ####[place] [address] Platelet mean volume Auto Entitic volume (Bld) 8.4 fL Normal 7.4-11.0 [facility]3] Comment on above: Performed By: #### L IPA2, ACBC, CMPF, ESR ####[place] [address] Platelets Auto #/vol (Bld) 268 /cmm Normal 130.0-400.0 [facility]3] Comment on above: Performed By: #### L IPA2, ACBC, CMPF, ESR ####[place] [address] RBC Auto #/vol (Bld) 5.08 /cmm Normal 4.0-5.4 [facility] Comment on above: Performed By: #### L IPA2, ACBC, CMPF, ESR ####[place] [address] WBC Auto #/vol (Bld) 8.1 /cmm Normal 3.6-11.0 [facility] Comment on above: Performed By: #### L IPA2, ACBC, CMPF, ESR ####Testing performed at [place] [id number] CMP FASTINGon 07-26-2018 A:G RATIO 1.0 RATIO Low 1.3-2.2 [facility]3] Comment on above: Performed By: #### L IPA2, ACBC, CMPF, ESR ####[place] [address] Albumin mass conc 4.3 G/dl Normal 3.5-5.0 [facility]3] Comment on above: Performed By: #### L IPA2, ACBC, CMPF, ESR ####[place] [address] ALP enzyme act/vol 89 U/L Normal 38-126 [facility]3] Comment on above: Performed By: #### L IPA2, ACBC, CMPF, ESR ####[place] [address] ALT enzyme act/vol 19 U/L Normal 14-54 [facility]3] Comment on above: Performed By: #### L IPA2, ACBC, CMPF, ESR ####[place] [address] AST enzyme act/vol 23 U/L Normal 15-41 [facility]3] Comment on above: Performed By: #### L IPA2, ACBC, CMPF, ESR ####Testing performed at [place] [phone] Bilirubin mass conc 0.7 mg/dL Normal 0.2-1.2 [facility]3] Comment on above: Performed By: #### L IPA2, ACBC, CMPF, ESR ####Testing performed at [place] [phone] Creatinine mass conc 0.9 mg/dL Normal 0.52-1.04 [facility] Comment on above: Performed By: #### L IPA2, ACBC, CMPF, ESR ####[place] [address] EST. GFR, >60 Normal [facility]3] Comment on above: Performed By: #### L IPA2, ACBC, CMPF, ESR ####Testing performed at [place] [id number] EST. GFR,Non >60 Normal [facility]3] Comment on above: Performed By: #### L IPA2, ACBC, CMPF, ESR ####[place] [address] GFR/1.73 sq M predicted among non-blacks MDRD vol rate/area (S/P/Bld) Average GFR for 20-29 years old = 116. Normal [facility]3] Comment on above: Result Comment: Child Adolescent Psychiatrist frantz Kidney disease, GFR = <60.Kidney failure, GFR = <15.The GFR estimate is not adjusted for extreme body surface area or acute process, nor has it been validated for women or ethnic groups other than and . Performed By: #### L IPA2, ACBC, CMPF, ESR ####[place] [address] Protein mass conc 8.4 g/dL High 6.3-8.2 [facility]3] Comment on above: Performed By: #### L IPA2, ACBC, CMPF, ESR ####[place] [address] Urea nitrogen mass conc (Bld) mg/dL Low 7-20 [facility]3] Comment on above: Performed By: #### L IPA2, ACBC, CMPF, ESR ####[place] [address] Calcium mass conc 9.4 mg/dL Normal 8.4-10.2 [facility]3] Comment on above: Performed By: #### L IPA2, ACBC, CMPF, ESR ####[place] [address] Chloride molar conc 103 mmol/L Normal 98-107 [facility]3] Comment on above: Performed By: #### L IPA2, ACBC, CMPF, ESR ####Testing performed at [address] [address] CO2 molar conc 25 mmol/L Normal 22-30 [facility]3] Comment on above: Performed By: #### L IPA2, ACBC, CMPF, ESR ####[place] [address] Glucose mass conc 124 mg/dL High 70-100 [facility]3] Comment on above: Result Comment: NORM AL <100 mg/dLPREDIABETES 101-126 mg/dLDIABETES 126 mg/dL or higher Performed By: #### L IPA2, ACBC, CMPF, ESR ####[place] [address] Potassium molar conc 3.1 mmol/L Low 3.5-5.1 [facility] Comment on above: Performed By: #### L IPA2, ACBC, CMPF, ESR ####[place] [address] Sodium molar conc 138 mmol/L Normal 136-145 [facility]3] Comment on above: Performed By: #### L IPA2, ACBC, CMPF, ESR ####[place] [address] ED NOTEon 07-26-2018 [facility] NOTES Normal [facility]3] ED PROVIDERon 07-26-2018 [facility] NOTES Normal [facility]3] ESRon 07-26-2018 ESR Velocity (Bld) 46 mm/h High 0-15 [facility]3] Comment on above: Performed By: #### L IPA2, ACBC, CMPF, ESR ####Testing performed at [place] [id number] LACTIC ACIDon 07-26-2018 Lactate molar conc 2.1 mmol/L Critically high 0.5-2.0 [facility] Comment on above: Result Comment: ANNA MARIE WILLARD REPEAT INITIAL CRITICAL IN 3 HOURS IF ED OR INPATIENT SEPSIS PATIENTResult called to read back by: SHY DAMIAN 07/26/2018 @ 14:54 by KASSIDY Performed By: #### L ACT ####Testing performed at [place] [id number] LIPASE,SERUMon 07-26-2018 LIPASE,SERUM 22 U/L Low 23-300 [facility]3] Comment on above: Performed By: #### L IPA2, ACBC, CMPF, ESR ####[place] [address] RAPID TOX SCREEN,URINEon AMPHETAMINE Negative Normal NEGATIVE [facility]3] Comment on above: Result Comment: <500 ng/ml CUTOFF Performed By: #### R TOX, UHCGT ####[place] [address] BARBITURATES Negative Normal NEGATIVE [facility]3] Comment on above: Result Comment: <200 ng/ml CUTOFF Performed By: #### R TOX, UHCGT ####[place] [address] BENZODIAZEPINES Negative Normal NEGATIVE [facility]3] Comment on above: Result Comment: <150 ng/ml CUTOFF Performed By: #### R TOX, UHCGT ####[place] [address] BUPRENORPHINE Negative Normal NEGATIVE [facility]3] Comment on above: Result Comment: <10 ng/ml CUTOFF Performed By: #### R TOX, UHCGT ####[place] [address] CANNABINOIDS Positive Abnormal NEGATIVE [facility]3] Comment on above: Result Comment: <50 ng/ml CUTOFF*Unconfirmed Screening Result* Unconfirmed screening results are to be used only for medical treatment purposes. Performed By: #### R TOX, UHCGT ####[place] [address] COCAINE Negative Normal NEGATIVE [facility]3] Comment on above: Result Comment: <150 ng/ml CUTOFF Performed By: #### R TOX, UHCGT ####[place] [address] METHADONE Negative Normal NEGATIVE [facility]3] Comment on above: Result Comment: <200 ng/ml CUTOFF Performed By: #### R TOX, UHCGT ####[place] [address] METHAMPHETAMINE Negative Normal NEGATIVE [facility]3] Comment on above: Result Comment: <500 ng/ml CUTOFF Performed By: #### R TOX, UHCGT ####Testing performed at [address] [address] OPIATES Negative Normal NEGATIVE [facility]3] Comment on above: Result Comment: <100 ng/ml CUTOFF Performed By: #### R TOX, UHCGT ####Testing performed at [address] [address] OXYCODONE Negative Normal NEGATIVE [facility]3] Comment on above: Result Comment: <100 ng/ml CUTOFF Performed By: #### R TOX, UHCGT ####Testing performed at [address] [address] PHENCYCLIDINE Negative Normal NEGATIVE [facility]3] Comment on above: Result Comment: <25 ng/ml CUTOFF Performed By: #### R TOX, UHCGT ####Testing performed at [address] [address] Protein mass conc Negative Normal NEGATIVE [facility]3] Comment on above: Result Comment: <300 ng/ml CUTOFF Performed By: #### R TOX, UHCGT ####Testing performed at [address] [address] TRICYCLIC ANTIDEPRESSANTS Negative Normal NEGATIVE [facility]3] Comment on above: Result Comment: <300 ng/ml CUTOFF Performed By: #### R TOX, UHCGT ####Testing performed at [address] [address] URINE HCG QUALon 07-26-2018 HCG.beta subunit ( test) Ql (U) Negative Normal NEGATIVE [facility]3] Comment on above: Performed By: #### R TOX, UHCGT ####Testing performed at [address] [address] ACETAMINOPHENon 07-12-2018 Acetaminophen mass conc <10.0 Low 10-30 [facility] ALCOHOLon 07-12-2018 Ethanol mass conc mg/dL Normal 0-10 [facility] Comment on above: Result Comment: INTOXICATION >80 MG/DL FATAL >400 MG/DL Performed By: #### A CBC ####Testing performed at [address] [address] CBCon 07-12-2018 ABSOLUTE BAS 0.1 X10 Normal [facility] Comment on above: Performed By: #### A CBC ####Testing performed at [address] [address] ABSOLUTE EOS 0.20 X10 Normal [facility] Comment on above: Performed By: #### A CBC ####Testing performed at [address] [address] ABSOLUTE NEUTROPHIL COUNT 7.0 x10 Normal 1.0-7.0 [facility] Comment on above: Performed By: #### A CBC ####Testing performed at [address] [address] Basophils/100 WBC (Bld) 0.7 % Normal 0.0-2.0 [facility] Comment on above: Performed By: #### A CBC ####Testing performed at [address] [address] DTYPE AUTO DIFF [facility] Comment on above: Performed By: #### A CBC ####Testing performed at [address] [address] Eosinophils/100 WBC (Bld) 1.5 % Normal 0.0-11.0 [facility] Comment on above: Performed By: #### A CBC ####Testing performed at [address] [address] Lymphocytes #/vol (Bld) 1.90 X10 Normal [facility] Comment on above: Performed By: #### A CBC ####Testing performed at [address] [address] Lymphocytes/100 WBC (Bld) 19.8 % Low 20.0-55.0 [facility] Comment on above: Performed By: #### A CBC ####Testing performed at [address] [address] Monocytes #/vol (Bld) 0.6 X10 Normal [facility] Comment on above: Performed By: #### A CBC ####Testing performed at [address] [address] Monocytes/100 WBC (Bld) 6.2 % Normal 0.0-10.0 [facility] Comment on above: Performed By: #### A CBC ####Testing performed at [address] [address] Neutrophils/100 WBC (Bld) 71.8 % Normal 37.0-75.0 [facility] Comment on above: Performed By: #### A CBC ####Testing performed at [address] [address] Erythrocyte distribution width Ratio (RBC) 15.3 % High 11.5-14.5 [facility] Comment on above: Performed By: #### A CBC ####Testing performed at [place] [id number] Hematocrit Volume Fraction (Bld) 40.7 % Normal 36.0-48.0 [facility] Comment on above: Performed By: #### A CBC ####Testing performed at [address] [address] Hemoglobin mass conc (Bld) 13.3 g/dL Normal 12.0-16.0 [facility] Comment on above: Performed By: #### A CBC ####Testing performed at [address] [address] MCH Entitic mass (RBC) 24.8 pg Low 26.0-35.0 [facility] Comment on above: Performed By: #### A CBC ####Testing performed at [address] [address] MCHC mass conc (RBC) 32.7 g/dL Normal 27.0-37.0 [facility] Comment on above: Performed By: #### A CBC ####Testing performed at [place] [id number] MCV Entitic volume (RBC) 75.7 fL Low 80.0-100.0 [facility] Comment on above: Performed By: #### A CBC ####Testing performed at [address] [address] Platelet mean volume Entitic volume (Bld) 8.3 fL Normal 7.4-11.0 [facility] Comment on above: Performed By: #### A CBC ####[place] [address] Platelets #/vol (Bld) 312 /cmm Normal 130.0-400.0 [facility] Comment on above: Performed By: #### A CBC ####[place] [address] RBC #/vol (Bld) 5.37 /cmm Normal 4.0-5.4 [facility] Comment on above: Performed By: #### A CBC ####[place] [address] WBC #/vol (Bld) 9.8 /cmm Normal 3.6-11.0 [facility] Comment on above: Performed By: #### A CBC ####[place] [address] CHEM 7 FASTINGon 07-12-2018 Chloride molar conc 104 mmol/L Normal 98-107 [facility] Comment on above: Performed By: #### A CBC ####[place] [address] CO2 molar conc 22 mmol/L Normal 22-30 [facility] Comment on above: Performed By: #### A CBC ####[place] [address] Creatinine mass conc 0.9 mg/dL Normal 0.7-1.2 [facility] Comment on above: Performed By: #### A CBC ####Testing performed at [address] [address] EST. GFR, >60 Normal [facility] Comment on above: Performed By: #### A CBC ####Testing performed at [address] [address] EST. GFR,Non >60 Normal [facility] Comment on above: Performed By: #### A CBC ####[place] [address] GFR/1.73 sq M predicted among non-blacks MDRD vol rate/area (S/P/Bld) Average GFR for 20-29 years old = 116. Normal [facility] Comment on above: Result Comment: Child Adolescent Psychiatrist frantz Kidney disease, GFR = <60. Kidney failure, GFR = <15. The GFR estimate is not adjusted for extreme body surface area or acute process, nor has it been validated for women or ethnic groups other than and . Performed By: #### A CBC ####Testing performed at [place] [id number] Glucose mass conc 170 mg/dL High 70-100 [facility] Comment on above: Result Comment: NORMAL <100 mg/dL PREDIABETES 101-126 mg/dL DIABETES 126 mg/dL or higher Performed By: #### A CBC ####Testing performed at [address] [address] Potassium molar conc 3.4 mmol/L Low 3.5-5.1 [facility] Comment on above: Performed By: #### A CBC ####Testing performed at [place] [id number] Sodium molar conc 141 mmol/L Normal 137-145 [facility] Comment on above: Performed By: #### A CBC ####Testing performed at [address] [address] [address] Urea nitrogen mass conc 9 mg/dL Normal 7-20 [facility] Comment on above: Performed By: #### A CBC ####Testing performed at [address] [address] LIVER PANELon 07-12-2018 Albumin mass conc 4.7 g/dL Normal 2.9-5.3 [facility] Comment on above: Performed By: #### A CBC ####Testing performed at [address] [address] ALP enzyme act/vol 100 U/L Normal 38-126 [facility] Comment on above: Performed By: #### A CBC ####Testing performed at [address] [address] ALT enzyme act/vol 32 U/L Normal 9-52 [facility] Comment on above: Performed By: #### A CBC ####Testing performed at [address] [address] AST enzyme act/vol 25 U/L Normal 14-36 [facility] Comment on above: Performed By: #### A CBC ####Testing performed at [address] [address] Bilirubin mass conc 1.5 mg/dL High 0.2-1.3 [facility] Comment on above: Performed By: #### A CBC ####Testing performed at [address] [address] Bilirubin.direct mass conc 0.3 mg/dL Normal 0-0.4 [facility] Comment on above: Performed By: #### A CBC ####Testing performed at [address] [address] Protein mass conc 8.4 g/dL High 6.3-8.2 [facility] Comment on above: Performed By: #### A CBC ####Testing performed at [address] [address] PROTIMEon 07-12-2018 INR Coag RelTime (PPP) 1.06 {INR} Normal 0.87-1.13 [facility] Comment on above: Result Comment: 2.0- 3.0 THERAPEUTIC RANGE 2.5-3.5 PROSTHETIC VALVE RANGE Performed By: #### A CBC ####Testing performed at [place] [id number] Prothrombin time (PT) Coag time (PPP) 11.0 s Normal 10.0-13.0 [facility] Comment on above: Performed By: #### A CBC ####Testing performed at [address] [address] RAPID TOX SCREEN,URINEon AMPHETAMINE Negative Normal NEGATIVE [facility] Comment on above: Result Comment: <500 ng/ml CUTOFF Performed By: #### U HCGT ####Testing performed at [address] [address] BARBITURATES Negative Normal NEGATIVE [facility] Comment on above: Result Comment: <200 ng/ml CUTOFF Performed By: #### U HCGT ####Testing performed at [address] [address] Benzodiazepines Ql (U) Negative Normal NEGATIVE [facility] Comment on above: Result Comment: <150 ng/ml CUTOFF Performed By: #### U HCGT ####Testing performed at [address] [address] BUPRENORPHINE Negative Normal NEGATIVE [facility] Comment on above: Result Comment: <10 ng/ml CUTOFF Performed By: #### U HCGT ####Testing performed at [address] [address] Cannabinoids Screen Ql (U) Positive Abnormal NEGATIVE [facility] Comment on above: Result Comment: <50 ng/ml CUTOFF *Unconfirmed Screening Result* Unconfirmed screening results are to be used only for medical treatment purposes. Performed By: #### U HCGT ####Testing performed at [address] [address] Cocaine Ql (U) Negative Normal NEGATIVE [facility] Comment on above: Result Comment: <150 ng/ml CUTOFF Performed By: #### U HCGT ####Testing performed at [address] [address] Methadone Ql (U) Negative Normal NEGATIVE [facility] Comment on above: Result Comment: <200 ng/ml CUTOFF Performed By: #### U HCGT ####Testing performed at [address] [address] METHAMPHETAMINE Negative Normal NEGATIVE [facility] Comment on above: Result Comment: <500 ng/ml CUTOFF Performed By: #### U HCGT ####Testing performed at [address] [address] Opiates Ql (U) Negative Normal NEGATIVE [facility] Comment on above: Result Comment: <100 ng/ml CUTOFF Performed By: #### U HCGT ####Testing performed at [address] [address] OXYCODONE Negative Normal NEGATIVE [facility] Comment on above: Result Comment: <100 ng/ml CUTOFF Performed By: #### U HCGT ####Testing performed at [address] [address] Phencyclidine Ql (U) Negative Normal NEGATIVE [facility] Comment on above: Result Comment: <25 ng/ml CUTOFF Performed By: #### U HCGT ####Testing performed at [address] [address] Protein mass conc (U) Negative Normal NEGATIVE [facility] Comment on above: Result Comment: <300 ng/ml CUTOFF Performed By: #### U HCGT ####Testing performed at [address] [address] Tricyclic antidepressants Screen Ql (U) Negative Normal NEGATIVE [facility] Comment on above: Result Comment: <300 ng/ml CUTOFF Performed By: #### U HCGT ####Testing performed at [place] [id number] SALICYLATESon 07-12-2018 SALICYLATES <1.0 Normal 0-20 [facility] TSHon 07-12-2018 Thyrotropin Qn 1.140 uIU/ML Normal 0.46-4.68 [facility] Comment on above: Performed By: #### A CBC ####Testing performed at [place] [id number] URINE HCG QUALon 07-12-2018 HCG.beta subunit ( test) Ql (U) Negative Normal [facility] Comment on above: Performed By: #### U HCGT ####[place] [address] CBCon 07-09-2018 ABSOLUTE BAS 0.1 X10 Normal [facility] Comment on above: Result Comment: Test ing performed at [place] [address] Performed By: #### A CBC, CHEM7F, BHCG2 ####[place] [address] ABSOLUTE EOS 0.20 X10 Normal [facility] Comment on above: Performed By: #### A CBC, CHEM7F, BHCG2 ####[place] [address] ABSOLUTE NEUTROPHIL COUNT 5.8 x10 Normal 1.0-7.0 [facility] Comment on above: Performed By: #### A CBC, CHEM7F, BHCG2 ####[place] [address] Basophils/100 WBC Auto (Bld) 0.8 % Normal 0.0-2.0 [facility] Comment on above: Performed By: #### A CBC, CHEM7F, BHCG2 ####Testing performed at [place] [id number] DTYPE AUTO DIFF Normal [facility] Comment on above: Performed By: #### A CBC, CHEM7F, BHCG2 ####Testing performed at [address] [address] Eosinophils/100 WBC Auto (Bld) 2.8 % Normal 0.0-11.0 [facility] Comment on above: Performed By: #### A CBC, CHEM7F, BHCG2 ####Testing performed at [address] [address] Lymphocytes Auto #/vol (Bld) 1.50 X10 Normal [facility] Comment on above: Performed By: #### A CBC, CHEM7F, BHCG2 ####Testing performed at [address] [address] Lymphocytes/100 WBC Auto (Bld) 18.7 % Low 20.0-55.0 [facility] Comment on above: Performed By: #### A CBC, CHEM7F, BHCG2 ####Testing performed at [place] [id number] Monocytes Auto #/vol (Bld) 0.3 X10 Normal [facility] Comment on above: Performed By: #### A CBC, CHEM7F, BHCG2 ####Testing performed at [address] [address] Monocytes/100 WBC Auto (Bld) 4.1 % Normal 0.0-10.0 [facility] Comment on above: Performed By: #### A CBC, CHEM7F, BHCG2 ####Testing performed at [address] [address] Neutrophils/100 WBC Auto (Bld) 73.6 % Normal 37.0-75.0 [facility] Comment on above: Performed By: #### A CBC, CHEM7F, BHCG2 ####Testing performed at [address] [address] Erythrocyte distribution width Auto Ratio (RBC) 15.0 % High 11.5-14.5 [facility] Comment on above: Performed By: #### A CBC, CHEM7F, BHCG2 ####[place] [address] Hematocrit Auto Volume Fraction (Bld) 37.5 % Normal 36.0-48.0 [facility] Comment on above: Performed By: #### A CBC, CHEM7F, BHCG2 ####[place] [address] Hemoglobin mass conc (Bld) 12.3 g/dL Normal 12.0-16.0 [facility] Comment on above: Performed By: #### A CBC, CHEM7F, BHCG2 ####[place] [address] MCH Auto Entitic mass (RBC) 24.9 pg Low 26.0-35.0 [facility] Comment on above: Performed By: #### A CBC, CHEM7F, BHCG2 ####[place] [address] MCHC Auto mass conc (RBC) 32.7 g/dL Normal 27.0-37.0 [facility] Comment on above: Performed By: #### A CBC, CHEM7F, BHCG2 ####[place] [address] MCV Auto Entitic volume (RBC) 76.1 fL Low 80.0-100.0 [facility] Comment on above: Performed By: #### A CBC, CHEM7F, BHCG2 ####[place] [address] Platelet mean volume Auto Entitic volume (Bld) 8.3 fL Normal 7.4-11.0 [facility] Comment on above: Performed By: #### A CBC, CHEM7F, BHCG2 ####[place] [address] Platelets Auto #/vol (Bld) 262 /cmm Normal 130.0-400.0 [facility] Comment on above: Performed By: #### A CBC, CHEM7F, BHCG2 ####[place] [address] RBC Auto #/vol (Bld) 4.93 /cmm Normal 4.0-5.4 [facility] Comment on above: Performed By: #### A CBC, CHEM7F, BHCG2 ####[place] [address] WBC Auto #/vol (Bld) 7.9 /cmm Normal 3.6-11.0 [facility] Comment on above: Performed By: #### A CBC, CHEM7F, BHCG2 ####[place] [address] CHEM 7 FASTINGon 07-09-2018 Chloride molar conc 105 mmol/L Normal 98-107 [facility] Comment on above: Performed By: #### A CBC, CHEM7F, BHCG2 ####[place] [address] CO2 molar conc 25 mmol/L Normal 22-30 [facility] Comment on above: Performed By: #### A CBC, CHEM7F, BHCG2 ####[place] [address] Creatinine mass conc 0.8 mg/dL Normal 0.7-1.2 [facility] Comment on above: Performed By: #### A CBC, CHEM7F, BHCG2 ####[place] [address] EST. GFR, >60 Normal [facility] Comment on above: Performed By: #### A CBC, CHEM7F, BHCG2 ####[place] [address] EST. GFR,Non >60 Normal [facility] Comment on above: Performed By: #### A CBC, CHEM7F, BHCG2 ####Testing [place] [address] GFR/1.73 sq M predicted among non-blacks MDRD vol rate/area (S/P/Bld) Average GFR for 20-29 years old = 116. Normal [facility] Comment on above: Result Comment: Child Adolescent Psychiatrist frantz Kidney disease, GFR = <60.Kidney failure, GFR = <15.The GFR estimate is not adjusted for extreme body surface area or acute process, nor has it been validated for women or ethnic groups other than and .Testing performed at [place] [address] Performed By: #### A CBC, CHEM7F, BHCG2 ####[place] [address] Glucose mass conc 101 mg/dL High 70-100 [facility] Comment on above: Result Comment: NORM AL <100 mg/dLPREDIABETES 101-126 mg/dLDIABETES 126 mg/dL or higher Performed By: #### A CBC, CHEM7F, BHCG2 ####[place] [address] Potassium molar conc 4.1 mmol/L Normal 3.5-5.1 [facility] Comment on above: Performed By: #### A CBC, CHEM7F, BHCG2 ####[place] [address] Sodium molar conc 140 mmol/L Normal 137-145 [facility] Comment on above: Performed By: #### A CBC, CHEM7F, BHCG2 ####[place] [address] Urea nitrogen mass conc (Bld) 8 mg/dL Normal 7-20 [facility] Comment on above: Performed By: #### A CBC, CHEM7F, BHCG2 ####[place] [address] ESRon 07-09-2018 ESR Velocity (Bld) 55 mm/h High 0-15 [facility] Comment on above: Result Comment: Test ing performed at [place] [address] Performed By: #### A CBC, CHEM7F, BHCG2 ####[place] [address] URINE HCG QUALon 07-09-2018 HCG.beta subunit ( test) Ql (U) Negative Normal [facility] Comment on above: Result Comment: Test ing performed at [place] [address] Performed By: #### A CBC, CHEM7F, BHCG2 ####[place] [address] URINE MACROSCOPICon 07-09-20 18 Bilirubin Ql (U) Negative Normal NEGATIVE [facility] Comment on above: Performed By: #### A CBC, CHEM7F, BHCG2 ####[place] [address] Clarity Nom (U) CLEAR Abnormal CLEAR [facility] Comment on above: Performed By: #### A CBC, CHEM7F, BHCG2 ####[place] [address] Color Nom (U) YELLOW Normal YELLOW [facility] Comment on above: Performed By: #### A CBC, CHEM7F, BHCG2 ####[place] [address] Glucose Ql (U) Negative Normal NEGATIVE [facility] Comment on above: Performed By: #### A CBC, CHEM7F, BHCG2 ####[place] [address] pH Test strip (U) 6.0 [pH] Normal 5.0-7.0 [facility] Comment on above: Performed By: #### A CBC, CHEM7F, BHCG2 ####[place] [address] URINE HEMOGLOBIN MODERATE Abnormal NEGATIVE [facility] Comment on above: Performed By: #### A CBC, CHEM7F, BHCG2 ####[place] [address] URINE KETONE Negative Normal NEGATIVE [facility] Comment on above: Performed By: #### A CBC, CHEM7F, BHCG2 ####[place] [address] URINE LEUKOTEST TRACE Abnormal NEGATIVE [facility] Comment on above: Result Comment: Test ing performed at [place] [address] Performed By: #### A CBC, CHEM7F, BHCG2 ####[place] [address] URINE NITRATES Negative Normal NEGATIVE [facility] Comment on above: Performed By: #### A CBC, CHEM7F, BHCG2 ####[place] [address] URINE SPEC GRAVITY 1.025 Normal 1.010-1.025 [facility] Comment on above: Performed By: #### A CBC, CHEM7F, BHCG2 ####[place] [address] URINE TOTAL PROTEIN Negative Normal NEGATIVE [facility] Comment on above: Performed By: #### A CBC, CHEM7F, BHCG2 ####[place] [address] Urobilinogen Test strip Qn (U) 0.2 mg/dl Normal 0.2-1.0 [facility] Comment on above: Performed By: #### A CBC, CHEM7F, BHCG2 ####[place] [address] URINE MICROSCOPICon 07-09-20 18 BACTERIA Negative Normal NEGATIVE [facility] Comment on above: Performed By: #### A CBC, CHEM7F, BHCG2 ####[place] [address] CASTS NONE Normal NONE [facility] Comment on above: Performed By: #### A CBC, CHEM7F, BHCG2 ####[place] [address] CRYSTAL NONE Normal NONE [facility] Comment on above: Performed By: #### A CBC, CHEM7F, BHCG2 ####[place] [address] EPITHELIAL CELLS TOO NUMEROUS TO COUNT Normal [facility] Comment on above: Performed By: #### A CBC, CHEM7F, BHCG2 ####[place] [address] MUCUS Negative Normal NEGATIVE [facility] Comment on above: Performed By: #### A CBC, CHEM7F, BHCG2 ####[place] [address] RBC Test strip #/vol (U) Negative Normal NEGATIVE [facility] Comment on above: Performed By: #### A CBC, CHEM7F, BHCG2 ####[place] [address] URINE COMMENT POSSIBLY CONTAMINATE D SPECIMEN, CULTURE MUST BE ORDERED SEPARATELY IF DEEMED NECESSARY. Normal [facility] Comment on above: Result Comment: Test ing performed at [place] [address] Performed By: #### A CBC, CHEM7F, BHCG2 ####[place] [address] URINE WBC'S 1 TO 5 Normal NEGATIVE [facility] Comment on above: Performed By: #### A CBC, CHEM7F, BHCG2 ####[place] [address] CBCon 05-19-2018 ABSOLUTE BAS 0.1 X10 Normal [facility] Comment on above: Performed By: #### A CBC ####[place] [address] ABSOLUTE EOS 0.10 X10 Normal [facility] Comment on above: Performed By: #### A CBC ####[place] [address] ABSOLUTE NEUTROPHIL COUNT 8.8 x10 High 1.0-7.0 [facility] Comment on above: Performed By: #### A CBC ####Testing performed at [address] [address] Basophils/100 WBC (Bld) 0.6 % Normal 0.0-2.0 [facility] Comment on above: Performed By: #### A CBC ####Testing performed at [address] [address] DTYPE AUTO DIFF Normal [facility] Comment on above: Performed By: #### A CBC ####Testing performed at [address] [address] Eosinophils/100 WBC (Bld) 0.9 % Normal 0.0-11.0 [facility] Comment on above: Performed By: #### A CBC ####Testing performed at [address] [address] Lymphocytes #/vol (Bld) 2.50 X10 Normal [facility] Comment on above: Performed By: #### A CBC ####Testing performed at [address] [address] Lymphocytes/100 WBC (Bld) 20.2 % Normal 20.0-55.0 [facility] Comment on above: Performed By: #### A CBC ####Testing performed at [address] [address] Monocytes #/vol (Bld) 0.8 X10 Normal [facility] Comment on above: Performed By: #### A CBC ####Testing performed at [address] [address] Monocytes/100 WBC (Bld) 6.8 % Normal 0.0-10.0 [facility] Comment on above: Performed By: #### A CBC ####Testing performed at [address] [address] Neutrophils/100 WBC (Bld) 71.5 % Normal 37.0-75.0 [facility] Comment on above: Performed By: #### A CBC ####Testing performed at [address] [address] Erythrocyte distribution width Ratio (RBC) 16.5 % High 11.5-14.5 [facility] Comment on above: Performed By: #### A CBC ####Testing performed at [address] [address] Hematocrit Volume Fraction (Bld) 35.0 % Low 36.0-48.0 [facility] Comment on above: Performed By: #### A CBC ####Testing performed at [address] [address] Hemoglobin mass conc (Bld) 11.5 g/dL Low 12.0-16.0 [facility] Comment on above: Performed By: #### A CBC ####Testing performed at [address] [address] MCH Entitic mass (RBC) 25.4 pg Low 26.0-35.0 [facility] Comment on above: Performed By: #### A CBC ####Testing performed at [address] [address] MCHC mass conc (RBC) 32.7 g/dL Normal 27.0-37.0 [facility] Comment on above: Performed By: #### A CBC ####Testing performed at [address] [address] MCV Entitic volume (RBC) 77.6 fL Low 80.0-100.0 [facility] Comment on above: Performed By: #### A CBC ####Testing performed at [address] [address] Platelet mean volume Entitic volume (Bld) 7.9 fL Normal 7.4-11.0 [facility] Comment on above: Performed By: #### A CBC ####[place] [address] Platelets #/vol (Bld) 368 /cmm Normal 130.0-400.0 [facility] Comment on above: Performed By: #### A CBC ####[place] [address] RBC #/vol (Bld) 4.51 /cmm Normal 4.0-5.4 [facility] Comment on above: Performed By: #### A CBC ####[place] [address] WBC #/vol (Bld) 12.3 /cmm High 3.6-11.0 [facility] Comment on above: Performed By: #### A CBC ####[place] [address] CMP FASTINGon 05-19-2018 A:G RATIO 1.2 RATIO Low 1.3-2.2 [facility] Albumin mass conc 4.1 G/dl Normal 3.5-5.0 [facility] ALP enzyme act/vol 124 U/L Normal 38-126 [facility] ALT enzyme act/vol 62 U/L High 9-52 [facility] AST enzyme act/vol 35 U/L Normal 14-36 [facility] Bilirubin mass conc 0.5 mg/dL Normal 0.2-1.3 [facility] Calcium mass conc 9.5 mg/dL Normal 8.4-10.2 [facility] Chloride molar conc 106 mmol/L Normal 98-107 [facility] CO2 molar conc 25 mmol/L Normal 22-30 [facility] Creatinine mass conc 0.9 mg/dL Normal 0.7-1.2 [facility] EST. GFR, >60 Normal [facility] EST. GFR,Non >60 Normal [facility] GFR/1.73 sq M predicted among non-blacks MDRD vol rate/area (S/P/Bld) Average GFR for 20-29 years old = 116. Normal [facility] Comment on above: Result Comment: Child Adolescent Psychiatrist frantz Kidney disease, GFR = <60. Kidney failure, GFR = <15. The GFR estimate is not adjusted for extreme body surface area or acute process, nor has it been validated for women or ethnic groups other than and . Glucose mass conc 108 mg/dL High 70-100 [facility] Comment on above: Result Comment: NORMAL <100 mg/dL PREDIABETES 101-126 mg/dL DIABETES 126 mg/dL or higher Potassium molar conc 3.5 mmol/L Normal 3.5-5.1 [facility] Protein mass conc 7.5 g/dL Normal 6.3-8.2 [facility] Sodium molar conc 143 mmol/L Normal 137-145 [facility] Urea nitrogen mass conc 9 mg/dL Normal 7-20 [facility] LIPASE,SERUMon 05-19-2018 LIPASE,SERUM 51 U/L Normal 23-300 [facility] URINE HCG QUALon 05-19-2018 HCG.beta subunit ( test) Ql (U) Negative Normal [facility] URINE MACROSCOPICon 05-19-20 18 Bilirubin Ql (U) Negative Normal NEGATIVE [facility] Clarity Nom (U) CLEAR Normal CLEAR [facility] Color Nom (U) YELLOW Normal YELLOW [facility] Glucose Ql (U) Negative Normal NEGATIVE [facility] pH (U) 6.0 [pH] Normal 5.0-7.0 [facility] Protein mass conc (U) TRACE Abnormal NEGATIVE [facility] URINE HEMOGLOBIN Negative Normal NEGATIVE [facility] URINE KETONE Negative Normal NEGATIVE [facility] URINE LEUKOTEST Negative Normal NEGATIVE [facility] URINE NITRATES Negative Normal NEGATIVE [facility] URINE SPEC GRAVITY >1.030 High 1.010-1.025 [facility] Urobilinogen Qn (U) 0.2 mg/dl Normal 0.2-1.0 [facility] URINE MICROSCOPICon 05-19-20 18 Bacteria LM.HPF #/area (Urine sed) TRACE Abnormal NEGATIVE [facility] Casts LM.LPF #/area (Urine sed) NONE Normal NONE [facility] CRYSTAL OCCASIONAL Abnormal NONE [facility] Comment on above: Result Comment: CA O XALATE CRYSTALS Epithelial cells LM.HPF #/area (Urine sed) 20 TO 30 Normal [facility] Mucus Ql (Urine sed) Negative Normal NEGATIVE [facility] RBC #/vol (U) Negative Normal NEGATIVE [facility] URINE COMMENT CULTURE CRITERIA NOT MET, NO CULTURE PERFORMED. Normal [facility] WBC #/vol (U) Negative Normal NEGATIVE [facility] XR ABDOMEN 1 VIEWon 05-19-20 18 XR ABDOMEN 1 VIEW XR ABDOMEN 1 VIEW HISTORY: Abdominal pain. COMPARISON: CT abdomen/pelvis from October 26, 2017. FINDINGS: Nonobstructive bowel gas pattern. No gross pneumoperitoneum. Osseous structures are intact. Intrauterine device is noted. IMPRESSION: Nonobstructive bowel gas pattern. Normal [facility] ACETAMINOPHENon 04-25-2018 Acetaminophen mass conc <10.0 Low 10-30 [facility] ALCOHOLon 04-25-2018 Ethanol mass conc mg/dL Normal 0-10 [facility] Comment on above: Result Comment: INTOXICATION >80 MG/DL FATAL >400 MG/DL CBCon 04-25-2018 ABSOLUTE BAS 0.1 X10 Normal [facility] ABSOLUTE EOS 0.10 X10 Normal [facility] ABSOLUTE NEUTROPHIL COUNT 6.5 x10 Normal 1.0-7.0 [facility] Basophils/100 WBC (Bld) 0.6 % Normal 0.0-2.0 [facility] DTYPE AUTO DIFF Normal [facility] Eosinophils/100 WBC (Bld) 1.1 % Normal 0.0-11.0 [facility] Lymphocytes #/vol (Bld) 2.00 X10 Normal [facility] Lymphocytes/100 WBC (Bld) 22.0 % Normal 20.0-55.0 [facility] Monocytes #/vol (Bld) 0.4 X10 Normal [facility] Monocytes/100 WBC (Bld) 4.5 % Normal 0.0-10.0 [facility] Neutrophils/100 WBC (Bld) 71.8 % Normal 37.0-75.0 [facility] Erythrocyte distribution width Ratio (RBC) 15.6 % High 11.5-14.5 [facility] Hematocrit Volume Fraction (Bld) 37.2 % Normal 36.0-48.0 [facility] Hemoglobin mass conc (Bld) 12.0 g/dL Normal 12.0-16.0 [facility] MCH Entitic mass (RBC) 25.3 pg Low 26.0-35.0 [facility] MCHC mass conc (RBC) 32.3 g/dL Normal 27.0-37.0 [facility] MCV Entitic volume (RBC) 78.2 fL Low 80.0-100.0 [facility] Platelet mean volume Entitic volume (Bld) 7.8 fL Normal 7.4-11.0 [facility] Platelets #/vol (Bld) 344 /cmm Normal 130.0-400.0 [facility] RBC #/vol (Bld) 4.76 /cmm Normal 4.0-5.4 [facility] WBC #/vol (Bld) 9.1 /cmm Normal 3.6-11.0 [facility] CHEM 7 FASTINGon 04-25-2018 Chloride molar conc 108 mmol/L High 98-107 [facility] CO2 molar conc 21 mmol/L Low 22-30 [facility] Creatinine mass conc 0.8 mg/dL Normal 0.7-1.2 [facility] EST. GFR, >60 Normal [facility] EST. GFR,Non >60 [facility] GFR/1.73 sq M predicted among non-blacks MDRD vol rate/area (S/P/Bld) Average GFR for 20-29 years old = 116. Normal [facility] Comment on above: Result Comment: [facility] Adolescent Psychiatrist frantz Kidney disease, GFR = <60. Kidney failure, GFR = <15. The GFR estimate is not adjusted for extreme body surface area or acute process, nor has it been validated for women or ethnic groups other than and . Glucose mass conc 98 mg/dL Normal 70-100 [facility] Comment on above: Result Comment: NORMAL <100 mg/dL PREDIABETES 101-126 mg/dL DIABETES 126 mg/dL or higher Potassium molar conc 3.8 mmol/L Normal 3.5-5.1 [facility] Sodium molar conc 140 mmol/L Normal 137-145 [facility] Urea nitrogen mass conc 7 mg/dL Normal 7-20 [facility] LIVER PANELon 04-25-2018 Albumin mass conc 4.4 g/dL Normal 2.9-5.3 [facility] ALP enzyme act/vol 116 U/L Normal 38-126 [facility] ALT enzyme act/vol 30 U/L Normal 9-52 [facility] AST enzyme act/vol 37 U/L High 14-36 [facility] Bilirubin mass conc 1.0 mg/dL Normal 0.2-1.3 [facility] Bilirubin.direct mass conc 0.3 mg/dL Normal 0-0.4 [facility] Protein mass conc 7.8 g/dL Normal 6.3-8.2 [facility] RAPID TOX SCREEN,URINEon AMPHETAMINE Negative Normal NEGATIVE [facility] Comment on above: Result Comment: <500 ng/ml CUTOFF BARBITURATES Negative Normal NEGATIVE [facility] Comment on above: Result Comment: <200 ng/ml CUTOFF Benzodiazepines Ql (U) Negative Normal NEGATIVE [facility] Comment on above: Result Comment: <150 ng/ml CUTOFF BUPRENORPHINE Negative Normal NEGATIVE [facility] Comment on above: Result Comment: <10 ng/ml CUTOFF Cannabinoids Screen Ql (U) Positive Abnormal NEGATIVE [facility] Comment on above: Result Comment: <50 ng/ml CUTOFF *Unconfirmed Screening Result* Unconfirmed screening results are to be used only for medical treatment purposes. Cocaine Ql (U) Negative Normal NEGATIVE [facility] Comment on above: Result Comment: <150 ng/ml CUTOFF Methadone Ql (U) Negative Normal NEGATIVE [facility] Comment on above: Result Comment: <200 ng/ml CUTOFF METHAMPHETAMINE Negative Normal NEGATIVE [facility] Comment on above: Result Comment: <500 ng/ml CUTOFF Opiates Ql (U) Negative Normal NEGATIVE [facility] Comment on above: Result Comment: <100 ng/ml CUTOFF OXYCODONE Negative Normal NEGATIVE [facility] Comment on above: Result Comment: <100 ng/ml CUTOFF Phencyclidine Ql (U) Negative Normal NEGATIVE [facility] Comment on above: Result Comment: <25 ng/ml CUTOFF Protein mass conc (U) Negative Normal NEGATIVE [facility] Comment on above: Result Comment: <300 ng/ml CUTOFF Tricyclic antidepressants Screen Ql (U) Negative Normal NEGATIVE [facility] Comment on above: Result Comment: <300 ng/ml CUTOFF SALICYLATESon 04-25-2018 SALICYLATES <1.0 Normal 0-20 [facility] TSHon 04-25-2018 Thyrotropin Qn 0.480 uIU/ML Normal 0.46-4.68 [facility] URINE MACROSCOPICon 04-25-20 18 Bilirubin Ql (U) Negative Normal NEGATIVE [facility] Clarity Nom (U) CLEAR Normal CLEAR [facility] Color Nom (U) YELLOW Normal YELLOW [facility] Glucose Ql (U) Negative Normal NEGATIVE [facility] pH (U) 6.5 [pH] Normal 5.0-7.0 [facility] Protein mass conc (U) Negative Normal NEGATIVE [facility] URINE HEMOGLOBIN LARGE Abnormal NEGATIVE [facility] URINE KETONE Negative Normal NEGATIVE [facility] URINE LEUKOTEST MODERATE Abnormal NEGATIVE [facility] URINE NITRATES Negative Normal NEGATIVE [facility] URINE SPEC GRAVITY 1.010 Normal 1.010-1.025 [facility] Urobilinogen Qn (U) 0.2 mg/dl Normal 0.2-1.0 [facility] URINE MICROSCOPICon 04-25-20 18 Bacteria LM.HPF #/area (Urine sed) 2+ Abnormal NEGATIVE [facility] Casts LM.LPF #/area (Urine sed) NONE Normal NONE [facility] CRYSTAL RARE Abnormal NONE [facility] Comment on above: Result Comment: CA O XALATE CRYSTALS Epithelial cells LM.HPF #/area (Urine sed) 10 TO 20 Normal [facility] Mucus Ql (Urine sed) TRACE Abnormal NEGATIVE [facility] RBC #/vol (U) 5 TO 10 Normal NEGATIVE [facility] URINE COMMENT POSSIBLY CONTAMINATE D SPECIMEN, CULTURE MUST BE ORDERED SEPARATELY IF DEEMED NECESSARY. Normal [facility] WBC #/vol (U) 1 TO 5 Normal NEGATIVE [facility] Glucose, POCon 02-27-2018 Glucose mass conc 145 mg/dL High 70-105 [facility] Comment on above: Performed By: #### G LUX ####Unless otherwise noted, all testing performed by [address] [id number]: [id number] Director: Geronimo Ibrahim M.D. Glucose mass conc 218 mg/dL High 70-105 [facility] Comment on above: Performed By: #### G LUX ####Unless otherwise noted, all testing performed by [address] [id number]: [id number] Director: Geronimo Ibrahim M.D. Basic Metabolic Profon 02-16 Potassium molar conc 2.9 mmol/L Critically low 3.7-5.3 [facility] Comment on above: Performed By: #### C DP #### [address] [address] #### TROPI, BMP #### [address] [place] [address] (cont.) Normal [facility] Comment on above: Result Comment: Aver age GFR for 20-29 years old: 116 mL/min/1.73sq m Chronic Kidney Disease: <60 mL/min/1.73sq m Kidney failure: <15 mL/min/1.73sq m eGFR calculated using average adult body mass. Additional eGFR calculator available at: http://[email or web address]/multiple_crcl_2012.htm Performed By: #### C DP #### [address] [address] #### TROPI, BMP #### [address] [place] [address] Anion gap molar conc 17 mmol/L Normal 9-17 [facility] Comment on above: Performed By: #### C DP #### [address] [address] #### TROPI, BMP #### [address] [place] [address] BUN/CRE Ratio 5 Low 9-[address] [facility] Comment on above: Performed By: #### C DP #### [address] [address] #### TROPI, BMP #### [address] [place] [address] Calcium mass conc 8.9 mg/dL Normal 8.6-10.4 [facility] Comment on above: Performed By: #### C DP #### [address] [address] #### TROPI, BMP #### [address] [place] [address] Chloride molar conc 102 mmol/L Normal 98-107 [facility] Comment on above: Performed By: #### C DP #### [address] [address] #### TROPI, BMP #### [address] [place] [address] CO2 molar conc 18 mmol/L Low 20-31 [facility] Comment on above: Performed By: #### C DP #### [address] [address] #### TROPI, BMP #### [address] [place] [address] Creatinine mass conc 0.43 mg/dL Low 0.50-0.90 [facility] Comment on above: Performed By: #### C DP #### [address] [address] #### TROPI, BMP #### [address] [place] [address] GFR, Amer >60 Normal >60 [facility] Comment on above: Performed By: #### C DP #### [address] [address] #### TROPI, BMP #### [address] [place] [address] GFR,non Amer >60 Normal >60 [facility] Comment on above: Performed By: #### C DP #### [address] [address] #### TROPI, BMP #### [address] [place] [address] Glucose mass conc 146 mg/dL High 70-99 [facility] Comment on above: Performed By: #### C DP #### [address] [address] #### TROPI, BMP #### [address] [place] [address] Sodium molar conc 137 mmol/L Normal 135-144 [facility] Comment on above: Performed By: #### C DP #### [address] [address] #### TROPI, BMP #### [address] [place] [address] Staging: Normal [facility] Comment on above: Result Comment: Stag e 1: Some kidney damage normal GFR Stage 2: Mild kidney damage GFR 60-89 Stage 3: Moderate kidney damage GFR 30-59 Stage 4: Severe kidney damage GFR 15-29 Stage 5: Severe kidney damage GFR <15 ESRD - chronic treatment by dialysis or transplant Performed at [address] [place] [address] Performed By: #### C DP #### [address] [address] #### TROPI, BMP #### [address] [place] [address] Urea nitrogen mass conc 2 mg/dL Low 6-20 [facility] Comment on above: Performed By: #### C DP #### [address] [address] #### TROPI, BMP #### [address] [place] [facility] CBC with Diffon 02-16-2018 Abs. Basophil <0.03 Normal 0.00-0.[address] [facility] Comment on above: Performed By: #### C DP #### [address] [address] #### TROPI, BMP #### [address] [place] [address] Abs.Imm.Granulocyte 0.08 k/uL Normal 0.00-0.30 [facility] Comment on above: Result Comment: Perf ormed at [address] [address] Performed By: #### C DP #### [address] [address] #### TROPI, BMP #### [address] [place] [address] Abs.Neutrophil (Seg) 8.67 k/uL High 1.50-8.10 [facility] Comment on above: Performed By: #### C DP #### [address] [address] #### TROPI, BMP #### [address] [place] [address] Basophils/100 WBC (Bld) 0 % Normal 0-2 [facility] Comment on above: Performed By: #### C DP #### [address] [address] #### TROPI, BMP #### [address] [place] [address] Eosinophils #/vol (Bld) 10*3/uL Normal 0.00-0.44 [facility] Comment on above: Performed By: #### C DP #### [address] [address] #### TROPI, BMP #### [address] [place] [address] Eosinophils/100 WBC (Bld) 0 % Low 1-4 [facility] Comment on above: Performed By: #### C DP #### [address] [address] #### TROPI, BMP #### [address] [place] [address] Erythrocyte distribution width Ratio (RBC) 15.2 % High 11.8-14.4 [facility] Comment on above: Performed By: #### C DP #### [address] [address] #### TROPI, BMP #### [address] [place] [address] Hematocrit Volume Fraction (Bld) 33.3 % Low 36.3-47.1 [facility] Comment on above: Performed By: #### C DP #### [address] [address] #### TROPI, BMP #### [address] [place] [address] Hemoglobin mass conc (Bld) 10.9 g/dL Low 11.9-15.1 [facility] Comment on above: Performed By: #### C DP #### [address] [address] #### TROPI, BMP #### [address] [place] [address] Immature granulocytes #/vol (Bld) 1 % High 0 [facility] Comment on above: Performed By: #### C DP #### [address] [address] #### TROPI, BMP #### [address] [place] [address] Lymphocytes #/vol (Bld) 1.82 10*3/uL Normal 1.10-3.70 [facility] Comment on above: Performed By: #### C DP #### [address] [address] #### TROPI, BMP #### [address] [place] [address] Lymphocytes/100 WBC (Bld) 16 % Low 24-43 [facility] Comment on above: Performed By: #### C DP #### [address] [address] #### TROPI, BMP #### [address] [place] [address] MCH Entitic mass (RBC) 27.2 pg Normal 25.2-33.5 [facility] [facility] Comment on above: Performed By: #### C DP #### [address] [address] #### TROPI, BMP #### [address] [place] [address] MCHC mass conc (RBC) 32.7 g/dL Normal 28.4-34.8 [facility] Comment on above: Performed By: #### C DP #### [address] [address] #### TROPI, BMP #### [address] [place] [address] MCV Entitic volume (RBC) 83.0 fL Normal 82.6-102.9 [facility] Comment on above: Performed By: #### C DP #### [address] [address] #### TROPI, BMP #### [address] [place] [address] Monocytes #/vol (Bld) 0.55 10*3/uL Normal 0.10-1.20 [facility] Comment on above: Performed By: #### C DP #### [address] [address] #### TROPI, BMP #### [address] [place] [address] Monocytes/100 WBC (Bld) 5 % Normal 3-12 [facility] Comment on above: Performed By: #### C DP #### [address] [address] #### TROPI, BMP #### [address] [place] [address] Neutrophil (Seg) 78 % High 36-65 [facility] Comment on above: Performed By: #### C DP #### [address] [address] #### TROPI, BMP #### [address] [place] [address] NRBC Automated 0.0 per 100 WBC Normal 0.0 [facility] Comment on above: Performed By: #### C DP #### [address] [address] #### TROPI, BMP #### [address] [place] [address] Platelet mean volume Entitic volume (Bld) 10.2 fL Normal 8.1-13.[address] [facility] Comment on above: Performed By: #### C DP #### [address] [address] #### TROPI, BMP #### [address] [place] [address] Platelets #/vol (Bld) 236 10*3/uL Normal 138-453 [facility] Comment on above: Performed By: #### C DP #### [address] [address] #### TROPI, BMP #### [address] [place] [address] RBC #/vol (Bld) 4.01 10*6/uL Normal 3.95-5.11 [facility] Comment on above: Performed By: #### C DP #### [address] [address] #### TROPI, BMP #### [address] [place] [address] WBC #/vol (Bld) 11.1 10*3/uL Normal 3.5-11.3 [facility] Comment on above: Performed By: #### C DP #### [address] [address] #### TROPI, BMP #### [address] [place] [address] Auto Diff Performed NOT REPORTED Normal [facility] Comment on above: Performed By: #### C DP #### [address] [address] #### TROPI, BMP #### [address] [place] [address] Platelets #/vol (Bld) NOT REPORTED Normal [facility] Comment on above: Performed By: #### C DP #### [address] [address] #### TROPI, BMP #### [address] [place] [address] RBC morphology finding Nom (Bld) NOT REPORTED Normal [facility] Comment on above: Performed By: #### C DP #### [address] [address] #### TROPI, BMP #### [address] [place] [address] WBC Morphology NOT REPORTED Normal [facility] Comment on above: Performed By: #### C DP #### [address] [address] #### TROPI, BMP #### [address] [place] [address] Troponinon 02-16-2018 Troponin I.cardiac mass conc ng/mL Normal <0.03 [facility] Comment on above: Result Comment: Trop onin T results cannot be compared to Troponin-I results. Performed By: #### C DP #### [address] [id number] #### TROPI, BMP #### [address] [place] [address] Troponin I.cardiac mass conc Normal [facility] Comment on above: Result Comment: Refe [...] require additional information for diagnosis. Performed at [address] [place] [address] [phone] Performed By: #### C DP #### [address] [address] #### TROPI, BMP #### [address] [place] [address] CBCon 02-15-2018 ABSOLUTE BAS 0.0 X10 Normal [facility] Comment on above: Result Comment: Test ing performed at [place], [place] [address] Performed By: #### A CBC, CHEM7F, BHCG2 ####[place] [address] ABSOLUTE EOS 0.10 X10 Normal [facility] Comment on above: Performed By: #### A CBC, CHEM7F, BHCG2 ####Testing performed at [place] [id number] ABSOLUTE NEUTROPHIL COUNT 10.8 x10 High 1.0-7.0 [facility] Comment on above: Performed By: #### A CBC, CHEM7F, BHCG2 ####Testing performed at [place] [id number] Basophils/100 WBC Auto (Bld) 0.3 % Normal 0.0-2.0 [facility] Comment on above: Performed By: #### A CBC, CHEM7F, BHCG2 ####Testing performed at [address] [address] DTYPE AUTO DIFF Normal [facility] Comment on above: Performed By: #### A CBC, CHEM7F, BHCG2 ####Testing performed at [address] [address] Eosinophils/100 WBC Auto (Bld) 1.1 % Normal 0.0-11.0 [facility] Comment on above: Performed By: #### A CBC, CHEM7F, BHCG2 ####Testing performed at [address] [address] Lymphocytes Auto #/vol (Bld) 1.70 X10 Normal [facility] Comment on above: Performed By: #### A CBC, CHEM7F, BHCG2 ####Testing performed at [address] [address] Lymphocytes/100 WBC Auto (Bld) 12.7 % Low 20.0-55.0 [facility] Comment on above: Performed By: #### A CBC, CHEM7F, BHCG2 ####Testing performed at [address] [address] Monocytes Auto #/vol (Bld) 0.6 X10 Normal [facility] Comment on above: Performed By: #### A CBC, CHEM7F, BHCG2 ####Testing performed at [address] [address] Monocytes/100 WBC Auto (Bld) 4.8 % Normal 0.0-10.0 [facility] Comment on above: Performed By: #### A CBC, CHEM7F, BHCG2 ####Testing performed at [address] [address] Neutrophils/100 WBC Auto (Bld) 81.1 % High 37.0-75.0 [facility] Comment on above: Performed By: #### A CBC, CHEM7F, BHCG2 ####[place] [address] Erythrocyte distribution width Auto Ratio (RBC) 16.8 % High 11.5-14.5 [facility] Comment on above: Performed By: #### A CBC, CHEM7F, BHCG2 ####[place] [address] Hematocrit Auto Volume Fraction (Bld) 36.2 % Normal 36.0-48.0 [facility] Comment on above: Performed By: #### A CBC, CHEM7F, BHCG2 ####[place] [address] Hemoglobin mass conc (Bld) 12.0 g/dL Normal 12.0-16.0 [facility] Comment on above: Performed By: #### A CBC, CHEM7F, BHCG2 ####[place] [address] MCH Auto Entitic mass (RBC) 27.8 pg Normal 26.0-35.0 [facility] Comment on above: Performed By: #### A CBC, CHEM7F, BHCG2 ####[place] [address] MCHC Auto mass conc (RBC) 33.2 g/dL Normal 27.0-37.0 [facility] Comment on above: Performed By: #### A CBC, CHEM7F, BHCG2 ####[place] [address] MCV Auto Entitic volume (RBC) 83.7 fL Normal 80.0-100.0 [facility] Comment on above: Performed By: #### A CBC, CHEM7F, BHCG2 ####[place] [address] Platelet mean volume Auto Entitic volume (Bld) 8.3 fL Normal 7.4-11.0 [facility] Comment on above: Performed By: #### A CBC, CHEM7F, BHCG2 ####Testing performed at [place] [id number] Platelets Auto #/vol (Bld) 245 /cmm Normal 130.0-400.0 [facility] Comment on above: Performed By: #### A CBC, CHEM7F, BHCG2 ####[place] [address] RBC Auto #/vol (Bld) 4.33 /cmm Normal 4.0-5.4 [facility] Comment on above: Performed By: #### A CBC, CHEM7F, BHCG2 ####[place] [address] WBC Auto #/vol (Bld) 13.4 /cmm High 3.6-11.0 [facility] Comment on above: Performed By: #### A CBC, CHEM7F, BHCG2 ####[place] [address] CMP FASTINGon 02-15-2018 A:G RATIO 1.2 RATIO Low 1.3-2.2 [facility] Comment on above: Performed By: #### A CBC, CHEM7F, BHCG2 ####[place] [address] Albumin mass conc 4.1 G/dl Normal 3.5-5.0 [facility] Comment on above: Performed By: #### A CBC, CHEM7F, BHCG2 ####[place] [address] ALP enzyme act/vol 105 U/L Normal 38-126 [facility] Comment on above: Performed By: #### A CBC, CHEM7F, BHCG2 ####[place] [address] ALT enzyme act/vol 11 U/L Normal 9-52 [facility] Comment on above: Performed By: #### A CBC, CHEM7F, BHCG2 ####[place] [address] AST enzyme act/vol 16 U/L Normal 14-36 [facility] Comment on above: Performed By: #### A CBC, CHEM7F, BHCG2 ####[place] [address] Bilirubin mass conc 0.8 mg/dL Normal 0.2-1.3 [facility] Comment on above: Performed By: #### A CBC, CHEM7F, BHCG2 ####[place] [address] Calcium mass conc 8.9 mg/dL Normal 8.4-10.2 [facility] Comment on above: Performed By: #### A CBC, CHEM7F, BHCG2 ####[place] [address] Chloride molar conc 105 mmol/L Normal 98-107 [facility] Comment on above: Performed By: #### A CBC, CHEM7F, BHCG2 ####[place] [address] CO2 molar conc 19 mmol/L Low 22-30 [facility] Comment on above: Performed By: #### A CBC, CHEM7F, BHCG2 ####[place] [address] Creatinine mass conc 0.5 mg/dL Low 0.7-1.2 [facility] Comment on above: Performed By: #### A CBC, CHEM7F, BHCG2 ####[place] [address] EST. GFR, >60 Normal [facility] Comment on above: Performed By: #### A CBC, CHEM7F, BHCG2 ####[place] [address] EST. GFR,Non >60 Normal [facility] Comment on above: Performed By: #### A CBC, CHEM7F, BHCG2 ####[place] [address] GFR/1.73 sq M predicted among non-blacks MDRD vol rate/area (S/P/Bld) Average GFR for 20-29 years old = 116. Normal [facility] Comment on above: Result Comment: Child Adolescent Psychiatrist frantz Kidney disease, GFR = <60.Kidney failure, GFR = <15.The GFR estimate is not adjusted for extreme body surface area or acute process, nor has it been validated for women or ethnic groups other than and .Testing performed at [place] [address] Performed By: #### A CBC, CHEM7F, BHCG2 ####[place] [address] Glucose mass conc 133 mg/dL High 70-100 [facility] Comment on above: Result Comment: NORM AL <100 mg/dLPREDIABETES 101-126 mg/dLDIABETES 126 mg/dL or higher Performed By: #### A CBC, CHEM7F, BHCG2 ####[place] [address] Potassium molar conc 3.3 mmol/L Low 3.5-5.1 [facility] Comment on above: Performed By: #### A CBC, CHEM7F, BHCG2 ####[place] [address] Protein mass conc 7.5 g/dL Normal 6.3-8.2 [facility] Comment on above: Performed By: #### A CBC, CHEM7F, BHCG2 ####[place] [address] Sodium molar conc 139 mmol/L Normal 137-145 [facility] Comment on above: Performed By: #### A CBC, CHEM7F, BHCG2 ####[place] [address] Urea nitrogen mass conc (Bld) 3 mg/dL Low 7-20 [facility] Comment on above: Performed By: #### A CBC, CHEM7F, BHCG2 ####[place] [address] MAGNESIUMon 02-15-2018 Magnesium mass conc 1.6 mg/dL Normal 1.6-2.3 [facility] Comment on above: Result Comment: Test ing performed at [place] [address] Performed By: #### A CBC, CHEM7F, BHCG2 ####[place] [address] CHLAM/GC AMPLIFon 01-29-2018 CHLAMYDIA NUC. AMP Negative Normal Negative [facility] GONOCOCCUS NUC. AMP Negative Normal Negative [facility] Comment on above: Result Comment: [facility] FIBRON[facility] 01-28-20 18 FIBRONECTIN Negative Normal NEGATIVE [facility] Comment on above: Result Comment: NO F ETAL FIBRONECTIN DETECTED.Testing performed at [place] [address] Performed By: #### A CBC, CHEM7F, BHCG2 ####[place] [address] RAPID TOX SCREEN,URINE WITH REFLEXon 01-27-2018 AMPHETAMINE Negative Normal NEGATIVE [facility] Comment on above: Result Comment: <500 ng/ml CUTOFF Performed By: #### A CBC, CHEM7F, BHCG2 ####[place] [address] BARBITURATES Negative Normal NEGATIVE [facility] Comment on above: Result Comment: <200 ng/ml CUTOFF Performed By: #### A CBC, CHEM7F, BHCG2 ####[place] [address] BENZODIAZEPINES Positive Abnormal NEGATIVE [facility] Comment on above: Result Comment: <150 ng/ml CUTOFF*Unconfirmed Screening Result* Unconfirmed screening results are to be used only for medical treatment purposes. Performed By: #### A CBC, CHEM7F, BHCG2 ####[place] [address] BUPRENORPHINE Negative Normal NEGATIVE [facility] Comment on above: Result Comment: <10 ng/ml CUTOFFTesting performed at [place] [address] Performed By: #### A CBC, CHEM7F, BHCG2 ####[place] [address] CANNABINOIDS Positive Abnormal NEGATIVE [facility] Comment on above: Result Comment: <50 ng/ml CUTOFF*Unconfirmed Screening Result* Unconfirmed screening results are to be used only for medical treatment purposes. Performed By: #### A CBC, CHEM7F, BHCG2 ####[place] [address] COCAINE Negative Normal NEGATIVE [facility] Comment on above: Result Comment: <150 ng/ml CUTOFF Performed By: #### A CBC, CHEM7F, BHCG2 ####[place] [address] METHADONE Negative Normal NEGATIVE [facility] Comment on above: Result Comment: <200 ng/ml CUTOFF Performed By: #### A CBC, CHEM7F, BHCG2 ####[place] [address] METHAMPHETAMINE Negative Normal NEGATIVE [facility] Comment on above: Result Comment: <500 ng/ml CUTOFF Performed By: #### A CBC, CHEM7F, BHCG2 ####[place] [address] OPIATES Negative Normal NEGATIVE [facility] Comment on above: Result Comment: <100 ng/ml CUTOFF Performed By: #### A CBC, CHEM7F, BHCG2 ####[place] [address] OXYCODONE Negative Normal NEGATIVE [facility] Comment on above: Result Comment: <100 ng/ml CUTOFF Performed By: #### A CBC, CHEM7F, BHCG2 ####[place] [address] PHENCYCLIDINE Negative Normal NEGATIVE [facility] Comment on above: Result Comment: <25 ng/ml CUTOFF Performed By: #### A CBC, CHEM7F, BHCG2 ####[place] [address] Protein mass conc Negative Normal NEGATIVE [facility] Comment on above: Result Comment: <300 ng/ml CUTOFF Performed By: #### A CBC, CHEM7F, BHCG2 ####[place] [address] TRICYCLIC ANTIDEPRESSANTS Negative Normal NEGATIVE [facility] Comment on above: Result Comment: <300 ng/ml CUTOFF Performed By: #### A CBC, CHEM7F, BHCG2 ####[place] [address] STREP SCREEN GRP Bon 018 STREP SCREEN GRP B SPECIMEN DESCRIPTION VAGINAL/RECTAL CULTURE NO GROUP B BETA STREP ISOLATED * Result Note: Testing performed at [place] [address] * REPORT STATUS 01/29/2018 * Result Note: FINAL * Normal [facility] Comment on above: Performed By: #### A CBC, CHEM7F, BHCG2 ####[place] [address] URINE CULTUREon 01-27-2018 Bacteria identified Cx Nom (U) SPECIMEN DESCRIPTION URINE - OTHERUA DIPSTICK NITRITE NEGATIVE * Result Note: LEUKOCYTE POSITIVE *CULTURE MULTIPLE SPECIES PRESENT;PROBABLE CONTAMINATION. SUGGEST REPEAT SPECIMEN. * Result Note: Testing performed at [place] [address] *REPORT STATUS 01/29/2018 * Result Note: FINAL * Normal [facility] Comment on above: Performed By: #### A CBC, CHEM7F, BHCG2 ####Testing performed at [place] [id number] URINE MACROSCOPICon 01-28-20 18 Bilirubin Ql (U) SMALL Abnormal NEGATIVE [facility] Comment on above: Performed By: #### A CBC, CHEM7F, BHCG2 ####Testing performed at [place] [id number] Clarity Nom (U) CLEAR Abnormal CLEAR [facility] Comment on above: Performed By: #### A CBC, CHEM7F, BHCG2 ####[place] [address] Color Nom (U) YELLOW Normal YELLOW [facility] Comment on above: Performed By: #### A CBC, CHEM7F, BHCG2 ####[place] [address] Glucose Ql (U) Negative Normal NEGATIVE [facility] Comment on above: Performed By: #### A CBC, CHEM7F, BHCG2 ####[place] [address] pH Test strip (U) 6.0 [pH] Normal 5.0-7.0 [facility] Comment on above: Performed By: #### A CBC, CHEM7F, BHCG2 ####[place] [address] URINE HEMOGLOBIN Negative Normal NEGATIVE [facility] Comment on above: Performed By: #### A CBC, CHEM7F, BHCG2 ####[place] [address] URINE KETONE TRACE Abnormal NEGATIVE [facility] Comment on above: Performed By: #### A CBC, CHEM7F, BHCG2 ####[place] [address] URINE LEUKOTEST SMALL Abnormal NEGATIVE [facility] Comment on above: Result Comment: Test ing performed at [place] [address] Performed By: #### A CBC, CHEM7F, BHCG2 ####[place] [address] URINE NITRATES Negative Normal NEGATIVE [facility] Comment on above: Performed By: #### A CBC, CHEM7F, BHCG2 ####[place] [address] URINE SPEC GRAVITY >1.030 High 1.010-1.025 [facility] Comment on above: Performed By: #### A CBC, CHEM7F, BHCG2 ####[place] [address] URINE TOTAL PROTEIN 30 mg/dl Abnormal NEGATIVE [facility] Comment on above: Performed By: #### A CBC, CHEM7F, BHCG2 ####[place] [address] Urobilinogen Test strip Qn (U) 1.0 mg/dl Normal 0.2-1.0 [facility] Comment on above: Performed By: #### A CBC, CHEM7F, BHCG2 ####[place] [address] URINE MICROSCOPICon 01-28-20 18 BACTERIA 2+ Abnormal NEGATIVE [facility] Comment on above: Performed By: #### A CBC, CHEM7F, BHCG2 ####[place] [address] CASTS NONE Normal NONE [facility] Comment on above: Performed By: #### A CBC, CHEM7F, BHCG2 ####[place] [address] CRYSTAL NONE Normal [facility] Comment on above: Performed By: #### A CBC, CHEM7F, BHCG2 ####[place] [address] EPITHELIAL CELLS 5 TO 10 Normal [facility] Comment on above: Performed By: #### A CBC, CHEM7F, BHCG2 ####[place] [address] MUCUS 1+ Abnormal NEGATIVE [facility] Comment on above: Performed By: #### A CBC, CHEM7F, BHCG2 ####[place] [address] RBC Test strip #/vol (U) 1 TO 5 Normal NEGATIVE [facility] Comment on above: Performed By: #### A CBC, CHEM7F, BHCG2 ####Testing performed at [facility] [address] [place] [address] URINE COMMENT REFLEX CULTURE PER ESTABLISHED CRITERIA. Normal [facility] Comment on above: Result Comment: Test ing performed at [place], [place] [address] Performed By: #### A CBC, CHEM7F, BHCG2 ####Testing performed at [address] [address] URINE WBC'S 1 TO 5 Normal NEGATIVE [facility] Comment on above: Performed By: #### A CBC, CHEM7F, BHCG2 ####Testing performed at [address] [address] Alcohol, Medicalon 8 Ethanol mass conc Negative Normal [facility] Comment on above: Performed By: #### A LC ####Unless otherwise noted, all testing performed by [place] [phone]: [id number] Director: Geronimo Ibrahim M.D. Drugs of Abuse, Urineon 12-06 Amphetamines,Ur None Detected Normal None Detected [facility] Comment on above: Performed By: #### D FAUSTINO ####Unless otherwise noted, all testing performed by [address] [phone]: [id number] Director: Geronimo Ibrahim M.D. Barbiturates,Ur None Detected Normal None Detected [facility] Comment on above: Performed By: #### D JULIANRU ####Unless otherwise noted, all testing performed by [address] [phone]: [id number] Director: Greonimo Ibrahim M.D. Benzodiazepine,Ur None Detected Normal None Detected [facility] Comment on above: Performed By: #### D JULIANRU ####Unless otherwise noted, all testing performed by [address] [phone]: [id number] Director: Geronimo Ibrahim M.D. Cannabinoids,Ur Positive Abnormal None Detected [facility] Comment on above: Performed By: #### D RUGSCRU ####Unless otherwise noted, all testing performed by [address] [phone]: [id number] Director: Geronimo Ibrahim M.D. Cocaine,Ur None Detected Normal [facility] Comment on above: Performed By: #### D RUGSCRU ####Unless otherwise noted, all testing performed by [address] [phone]: [id number] Director: Geronimo Ibrahim M.D. DOA Cutoffs See comment. Normal [facility] Comment on above: Result Comment: Drug s of Abuse, Urine Presumptive Positive Cutoff Concentrations.Amphetamine/Methamphetamine: 1000 ng/mlBarbiturates: 200 ng/mlBenzodiazepines and metabolities: 200 ng/mlCannabinoids: 50 ng/mlCocaine/Benzoylecgonine: 300 ng/mlMethadone:300 ng/mlOpiates: 300 ng/mlOxycodone/Oxymorphone: 100 ng/ml Performed By: #### D RUGSCRU ####Unless otherwise noted, all testing performed by [address] [phone]: [id number] Director: Geronimo Ibrahim M.D. Methadone,Ur None Detected Normal None Detected [facility] Comment on above: Performed By: #### D RUGSCRU ####Unless otherwise noted, all testing performed by [address], [place] [phone]: [id number] Director: Geronimo Ibrahim M.D. Opiates,Ur None Detected Normal None Detected [facility] Comment on above: Performed By: #### D RUGSCRU ####Unless otherwise noted, all testing performed by [address] [phone]: [id number] Director: Geronimo Ibrahim M.D. Oxycodone, Urine None Detected Normal None Detected [facility] Comment on above: Result Comment: THES E DRUGS OF ABUSE TESTS ARE PROVIDED A MEDICAL SCREENING ONLY.POSITIVE RESULTS ARENOT CONFIRMED BY GCMS Performed By: #### D RUGSCRU ####Unless otherwise noted, all testing performed by [address] [phone]: [id number] Director: Geronimo Ibrahim M.D. SENDOUT TESTon 11-15-2017 SENDOUT TEST SENT TO [facility] Comment on above: Result Comment: Test ing performed at [place] [address] Performed By: #### K OHP ####[place] [address] CBCon 10-26-2017 ABSOLUTE BAS 0.0 X10 Normal [facility] Comment on above: Result Comment: Test ing performed at [place] [address] Performed By: #### K OHP ####[place] [address] ABSOLUTE EOS 0.10 X10 Normal [facility] Comment on above: Performed By: #### K OHP ####[place] [address] ABSOLUTE NEUTROPHIL COUNT 6.2 x10 Normal 1.0-7.0 [facility] Comment on above: Performed By: #### K OHP ####Testing performed at [address] [address] Basophils/100 WBC Auto (Bld) 0.5 % Normal 0.0-2.0 [facility] Comment on above: Performed By: #### K OHP ####Testing performed at [address] [address] DTYPE AUTO DIFF Normal [facility] Comment on above: Performed By: #### K OHP ####Testing performed at [address] [address] Eosinophils/100 WBC Auto (Bld) 1.4 % Normal 0.0-11.0 [facility] Comment on above: Performed By: #### K OHP ####Testing performed at [address] [address] Lymphocytes Auto #/vol (Bld) 1.50 X10 Normal [facility] Comment on above: Performed By: #### K OHP ####Testing performed at [address] [address] Lymphocytes/100 WBC Auto (Bld) 17.7 % Low 20.0-55.0 [facility] Comment on above: Performed By: #### K OHP ####Testing performed at [address] [address] Monocytes Auto #/vol (Bld) 0.6 X10 Normal [facility] Comment on above: Performed By: #### K OHP ####Testing performed at [address] [address] Monocytes/100 WBC Auto (Bld) 6.7 % Normal 0.0-10.0 [facility] Comment on above: Performed By: #### K OHP ####Testing performed at [address] [address] Neutrophils/100 WBC Auto (Bld) 73.7 % Normal 37.0-75.0 [facility] Comment on above: Performed By: #### K OHP ####[place] [address] Erythrocyte distribution width Auto Ratio (RBC) 14.6 % High 11.5-14.5 [facility] Comment on above: Performed By: #### K OHP ####[place] [address] Hematocrit Auto Volume Fraction (Bld) 37.3 % Normal 36.0-48.0 [facility] Comment on above: Performed By: #### K OHP ####[place] [address] Hemoglobin mass conc (Bld) 12.4 g/dL Normal 12.0-16.0 [facility] Comment on above: Performed By: #### K OHP ####[place] [address] MCH Auto Entitic mass (RBC) 27.0 pg Normal 26.0-35.0 [facility] Comment on above: Performed By: #### K OHP ####[place] [address] MCHC Auto mass conc (RBC) 33.4 g/dL Normal 27.0-37.0 [facility] Comment on above: Performed By: #### K OHP ####[place] [address] MCV Auto Entitic volume (RBC) 81.0 fL Normal 80.0-100.0 [facility] Comment on above: Performed By: #### K OHP ####Testing performed at [place] [id number] Platelet mean volume Auto Entitic volume (Bld) 8.4 fL Normal 7.4-11.0 [facility] Comment on above: Performed By: #### K OHP ####[place] [address] Platelets Auto #/vol (Bld) 247 /cmm Normal 130.0-400.0 [facility] Comment on above: Performed By: #### K OHP ####[place] [address] RBC Auto #/vol (Bld) 4.60 /cmm Normal 4.0-5.4 [facility] Comment on above: Performed By: #### K OHP ####[place] [address] WBC Auto #/vol (Bld) 8.4 /cmm Normal 3.6-11.0 [facility] Comment on above: Performed By: #### K OHP ####[place] [address] CT ABDOMEN/PELVIS WITHOUT CO NTRASTon 10-26-2017 CT [...] findings in the abdomen or pelvis. Normal [facility] ESRon 10-26-2017 ESR Velocity (Bld) 60 mm/h High 0-20 [facility] Comment on above: Result Comment: Test ing performed at [place] [address] Performed By: #### K OHP ####[place] [address] BHCG,QUANTITATIVEon 10-25-20 17 BHCG,QUANTITATIVE 46763.00 MIU/ML Normal Av [facility] Comment on above: Result Comment: [facility] INTERPRETIVE RANGES: NON FEMALE 0-6 MIU/MLMALE ADULT [...] qualitative hCG testing of urine.Testing performed at [place] [address] Performed By: #### K OHP ####[place] [address] BMP FASTINGon 10-25-2017 Anion gap 3 molar conc 12 mmol/L Normal 8-16 [facility] Comment on above: Performed By: #### K OHP ####[place] [address] Calcium mass conc 9.3 mg/dL Normal 8.4-10.2 [facility] Comment on above: Performed By: #### K OHP ####[place] [address] Chloride molar conc 104 mmol/L Normal 98-107 [facility] Comment on above: Performed By: #### K OHP ####Testing performed at [place] [id number] CO2 molar conc 20 mmol/L Low 22-30 [facility] Comment on above: Performed By: #### K OHP ####[place] [address] Creatinine mass conc 0.7 mg/dL Normal 0.7-1.2 [facility] Comment on above: Performed By: #### K OHP ####[place] [address] EST. GFR, >60 Normal [facility] Comment on above: Performed By: #### K OHP ####[place] [address] EST. GFR,Non >60 Normal [facility] Comment on above: Performed By: #### K OHP ####[place] [address] GFR/1.73 sq M predicted among non-blacks MDRD vol rate/area (S/P/Bld) Average GFR for 20-29 years old = 116. Normal [facility] Comment on above: Result Comment: [facility] Adolescent Psychiatrist frantz Kidney disease, GFR = <60.Kidney failure, GFR = <15.The GFR estimate is not adjusted for extreme body surface area or acute process, nor has it been validated for women or ethnic groups other than and .Testing performed at [place] [address] Performed By: #### K OHP ####[place] [address] Glucose mass conc 101 mg/dL High 70-100 [facility] Comment on above: Result Comment: NORM AL <100 mg/dLPREDIABETES 101-126 mg/dLDIABETES 126 mg/dL or higher Performed By: #### K OHP ####[place] [address] Potassium molar conc 3.5 mmol/L Normal 3.5-5.1 [facility] Comment on above: Performed By: #### K OHP ####[place] [address] Sodium molar conc 136 mmol/L Low 137-145 [facility] Comment on above: Performed By: #### K OHP ####[place] [address] Urea nitrogen mass conc (Bld) 6 mg/dL Low 7-20 [facility] Comment on above: Performed By: #### K OHP ####[place] [address] CBCon 10-25-2017 ABSOLUTE BAS 0.2 X10 Normal [facility] Comment on above: Result Comment: Test ing performed at [place] [address] Performed By: #### K OHP ####[place] [address] ABSOLUTE EOS 0.20 X10 Normal [facility] Comment on above: Performed By: #### K OHP ####[place] [address] ABSOLUTE NEUTROPHIL COUNT 9.6 x10 High 1.0-7.0 [facility] Comment on above: Performed By: #### K OHP ####[place] [address] Basophils/100 WBC Auto (Bld) 1.3 % Normal 0.0-2.0 [facility] Comment on above: Performed By: #### K OHP ####[place] [address] DTYPE AUTO DIFF Normal [facility] Comment on above: Performed By: #### K OHP ####Testing performed at [place] [id number] Eosinophils/100 WBC Auto (Bld) 1.6 % Normal 0.0-11.0 [facility] Comment on above: Performed By: #### K OHP ####[place] [address] Lymphocytes Auto #/vol (Bld) 2.50 X10 Normal [facility] Comment on above: Performed By: #### K OHP ####Testing performed at [address] [address] Lymphocytes/100 WBC Auto (Bld) 18.7 % Low 20.0-55.0 [facility] Comment on above: Performed By: #### K OHP ####Testing performed at [address] [address] Monocytes Auto #/vol (Bld) 0.7 X10 Normal [facility] Comment on above: Performed By: #### K OHP ####Testing performed at [address] [address] Monocytes/100 WBC Auto (Bld) 5.3 % Normal 0.0-10.0 [facility] Comment on above: Performed By: #### K OHP ####Testing performed at [address] [address] Neutrophils/100 WBC Auto (Bld) 73.1 % Normal 37.0-75.0 [facility] Comment on above: Performed By: #### K OHP ####Testing performed at [address] [address] Erythrocyte distribution width Auto Ratio (RBC) 14.7 % High 11.5-14.5 [facility] Comment on above: Performed By: #### K OHP ####Testing performed at [address] [address] Hematocrit Auto Volume Fraction (Bld) 39.5 % Normal 36.0-48.0 [facility] Comment on above: Performed By: #### K OHP ####Testing performed at [address] [address] Hemoglobin mass conc (Bld) 13.0 g/dL Normal 12.0-16.0 [facility] Comment on above: Performed By: #### K OHP ####Testing performed at [address] [address] MCH Auto Entitic mass (RBC) 26.7 pg Normal 26.0-35.0 [facility] Comment on above: Performed By: #### K OHP ####[place] [address] MCHC Auto mass conc (RBC) 32.8 g/dL Normal 27.0-37.0 [facility] Comment on above: Performed By: #### K OHP ####[place] [address] MCV Auto Entitic volume (RBC) 81.3 fL Normal 80.0-100.0 [facility] Comment on above: Performed By: #### K OHP ####[place] [address] Platelet mean volume Auto Entitic volume (Bld) 8.3 fL Normal 7.4-11.0 [facility] Comment on above: Result Comment: Test ing performed at [place] [address] Performed By: #### K OHP ####[place] [address] Platelets Auto #/vol (Bld) 289 /cmm Normal 130.0-400.0 [facility] Comment on above: Performed By: #### K OHP ####[place] [address] RBC Auto #/vol (Bld) 4.85 /cmm Normal 4.0-5.4 [facility] Comment on above: Performed By: #### K OHP ####[place] [address] WBC Auto #/vol (Bld) 13.1 /cmm High 3.6-11.0 [facility] Comment on above: Performed By: #### K OHP ####[place] [address] LACTIC ACIDon 10-25-2017 Lactate molar conc 1.5 mmol/L Normal 0.7-2.1 [facility] Comment on above: Result Comment: Test ing performed at [place] [address] Performed By: #### K OHP ####Testing performed at [place] [id number] LIVER PANELon 10-25-2017 Albumin mass conc 4.4 g/dL Normal 2.9-5.3 [facility] Comment on above: Performed By: #### K OHP ####[place] [address] ALP enzyme act/vol 74 U/L Normal 38-126 [facility] Comment on above: Performed By: #### K OHP ####[place] [address] ALT enzyme act/vol 27 U/L Normal 9-52 [facility] Comment on above: Result Comment: Test ing performed at [place] [address] Performed By: #### K OHP ####[place] [address] AST enzyme act/vol 14 U/L Normal 14-36 [facility] Comment on above: Performed By: #### K OHP ####[place] [address] Bilirubin mass conc 1.2 mg/dL Normal 0.2-1.3 [facility] Comment on above: Performed By: #### K OHP ####[place] [address] Bilirubin.direct mass conc 0.3 mg/dL Normal 0-0.4 [facility] Comment on above: Performed By: #### K OHP ####Testing performed at [place] [id number] Protein mass conc 8.0 g/dL Normal 6.3-8.2 [facility] Comment on above: Performed By: #### K OHP ####[place] [address] RAPID FLU Aon 10-25-2017 INFLUENZA A AG Negative Normal NEGATIVE [facility] Comment on above: Performed By: #### K OHP ####[place] [address] INFLUENZA B AG Negative Normal NEGATIVE [facility] Comment on above: Result Comment: TEST ING PERFORMED BY NAATesting performed at [place] [address] Performed By: #### K OHP ####[place] [address] URINE MACROSCOPICon 10-25-20 17 Bilirubin Ql (U) SMALL Abnormal NEGATIVE [facility] Comment on above: Performed By: #### U MAC, UMIC ####[place] [address] Clarity Nom (U) SLIGHTLY CLOUDY Abnormal CLEAR [facility] Comment on above: Performed By: #### U MAC, UMIC ####[place] [address] Color Nom (U) YELLOW Normal YELLOW [facility] Comment on above: Performed By: #### U MAC, UMIC ####[place] [address] Glucose Ql (U) Negative Normal NEGATIVE [facility] Comment on above: Performed By: #### U MAC, UMIC ####[place] [address] pH Test strip (U) 5.5 [pH] Normal 5.0-7.0 [facility] Comment on above: Performed By: #### U MAC, UMIC ####[place] [address] URINE HEMOGLOBIN Negative Normal NEGATIVE [facility] Comment on above: Performed By: #### U MAC, UMIC ####[place] [address] URINE KETONE 15 mg/dl Abnormal NEGATIVE [facility] Comment on above: Performed By: #### U MAC, UMIC ####[place] [address] URINE LEUKOTEST Negative Normal NEGATIVE [facility] Comment on above: Result Comment: Test ing performed at [place] [address] Performed By: #### U MAC, UMIC ####[place] [address] URINE NITRATES Negative Normal NEGATIVE [facility] Comment on above: Performed By: #### U MAC, UMIC ####[place] [address] URINE SPEC GRAVITY >1.030 High 1.010-1.025 [facility] Comment on above: Performed By: #### U MAC, UMIC ####[place] [address] URINE TOTAL PROTEIN TRACE Abnormal NEGATIVE [facility] Comment on above: Performed By: #### U MAC, UMIC ####[place] [address] Urobilinogen Test strip Qn (U) 0.2 mg/dl Normal 0.2-1.0 [facility] Comment on above: Performed By: #### U MAC, UMIC ####[place] [address] URINE MICROSCOPICon 10-25-20 17 BACTERIA 1+ Abnormal NEGATIVE [facility] Comment on above: Performed By: #### U MAC, UMIC ####[place] [address] CASTS NONE Normal [facility] Comment on above: Performed By: #### U MAC, UMIC ####[place] [address] CRYSTAL NONE Normal [facility] Comment on above: Performed By: #### U MAC, UMIC ####[place] [address] EPITHELIAL CELLS 1 TO 5 Normal [facility] Comment on above: Performed By: #### U MAC, UMIC ####[place] [address] MUCUS TRACE Abnormal NEGATIVE [facility] Comment on above: Performed By: #### U MAC, UMIC ####[place] [address] RBC Test strip #/vol (U) Negative Normal NEGATIVE [facility] Comment on above: Performed By: #### U MAC, UMIC ####[place] [address] URINE COMMENT CULTURE CRITERIA NOT MET, NO CULTURE PERFORMED. Normal [facility] Comment on above: Result Comment: Test ing performed at [place] [address] Performed By: #### U MAC, UMIC ####[place] [address] URINE WBC'S 1 TO 5 Normal NEGATIVE [facility] Comment on above: Performed By: #### U MAC, UMIC ####[place] [address] CHLAM/GC AMPLIFon 10-17-2017 CHLAMYDIA NUC. AMP Negative Normal Negative [facility] GONOCOCCUS NUC. AMP Negative Normal Negative [facility] Comment on above: Result Comment: [facility]20 [facility],QUANTITATIVE [address].00 MIU/ML Normal Av [facility] Comment on above: Result Comment: [facility] INTERPRETIVE RANGES: NON FEMALE 0-6 MIU/MLMALE ADULT [...] qualitative hCG testing of urine.Testing performed at [place] [address] Performed By: #### A CBC, CHEM7F, BHCG2 ####[place] [address] CBCon 10-15-2017 ABSOLUTE BAS 0.1 X10 Normal [facility] Comment on above: Result Comment: Test ing performed at [place] [address] Performed By: #### A CBC, CHEM7F, BHCG2 ####[place] [address] ABSOLUTE EOS 0.20 X10 Normal [facility] Comment on above: Performed By: #### A CBC, CHEM7F, BHCG2 ####[place] [address] ABSOLUTE NEUTROPHIL COUNT 7.6 x10 High 1.0-7.0 [facility] Comment on above: Performed By: #### A CBC, CHEM7F, BHCG2 ####[place] [address] Basophils/100 WBC Auto (Bld) 0.8 % Normal 0.0-2.0 [facility] Comment on above: Performed By: #### A CBC, CHEM7F, BHCG2 ####[place] [address] DTYPE AUTO DIFF Normal [facility] Comment on above: Performed By: #### A CBC, CHEM7F, BHCG2 ####[place] [address] Eosinophils/100 WBC Auto (Bld) 2.0 % Normal 0.0-11.0 [facility] Comment on above: Performed By: #### A CBC, CHEM7F, BHCG2 ####Testing performed at [place] [id number] Lymphocytes Auto #/vol (Bld) 1.40 X10 Normal [facility] Comment on above: Performed By: #### A CBC, CHEM7F, BHCG2 ####[place] [address] Lymphocytes/100 WBC Auto (Bld) 14.3 % Low 20.0-55.0 [facility] Comment on above: Performed By: #### A CBC, CHEM7F, BHCG2 ####[place] [address] Monocytes Auto #/vol (Bld) 0.6 X10 Normal [facility] Comment on above: Performed By: #### A CBC, CHEM7F, BHCG2 ####[place] [address] Monocytes/100 WBC Auto (Bld) 5.9 % Normal 0.0-10.0 [facility] Comment on above: Performed By: #### A CBC, CHEM7F, BHCG2 ####[place] [address] Neutrophils/100 WBC Auto (Bld) 77.0 % High 37.0-75.0 [facility] Comment on above: Performed By: #### A CBC, CHEM7F, BHCG2 ####[place] [address] Erythrocyte distribution width Auto Ratio (RBC) 15.1 % High 11.5-14.5 [facility] Comment on above: Performed By: #### A CBC, CHEM7F, BHCG2 ####[place] [address] Hematocrit Auto Volume Fraction (Bld) 36.8 % Normal 36.0-48.0 [facility] Comment on above: Performed By: #### A CBC, CHEM7F, BHCG2 ####[place] [address] Hemoglobin mass conc (Bld) 12.3 g/dL Normal 12.0-16.0 [facility] Comment on above: Performed By: #### A CBC, CHEM7F, BHCG2 ####[place] [address] MCH Auto Entitic mass (RBC) 27.2 pg Normal 26.0-35.0 [facility] Comment on above: Performed By: #### A CBC, CHEM7F, BHCG2 ####[place] [address] MCHC Auto mass conc (RBC) 33.3 g/dL Normal 27.0-37.0 [facility] Comment on above: Performed By: #### A CBC, CHEM7F, BHCG2 ####[place] [address] MCV Auto Entitic volume (RBC) 81.7 fL Normal 80.0-100.0 [facility] Comment on above: Performed By: #### A CBC, CHEM7F, BHCG2 ####[place] [address] Platelet mean volume Auto Entitic volume (Bld) 8.4 fL Normal 7.4-11.0 [facility] Comment on above: Performed By: #### A CBC, CHEM7F, BHCG2 ####[place] [address] Platelets Auto #/vol (Bld) 237 /cmm Normal 130.0-400.0 [facility] Comment on above: Performed By: #### A CBC, CHEM7F, BHCG2 ####[place] [address] RBC Auto #/vol (Bld) 4.51 /cmm Normal 4.0-5.4 [facility] Comment on above: Performed By: #### A CBC, CHEM7F, BHCG2 ####[place] [address] WBC Auto #/vol (Bld) 9.9 /cmm Normal 3.6-11.0 [facility] Comment on above: Performed By: #### A CBC, CHEM7F, BHCG2 ####[place] [address] CHEM 7 FASTINGon 10-15-2017 Chloride molar conc 106 mmol/L Normal 98-107 [facility] Comment on above: Performed By: #### A CBC, CHEM7F, BHCG2 ####[place] [address] CO2 molar conc 21 mmol/L Low 22-30 [facility] Comment on above: Performed By: #### A CBC, CHEM7F, BHCG2 ####[place] [address] Creatinine mass conc 0.7 mg/dL Normal 0.7-1.2 [facility] Comment on above: Performed By: #### A CBC, CHEM7F, BHCG2 ####[place] [address] EST. GFR, >60 Normal [facility] Comment on above: Performed By: #### A CBC, CHEM7F, BHCG2 ####[place] [address] EST. GFR,Non >60 Normal [facility] Comment on above: Performed By: #### A CBC, CHEM7F, BHCG2 ####[place] [address] GFR/1.73 sq M predicted among non-blacks MDRD vol rate/area (S/P/Bld) Average GFR for 20-29 years old = 116. Normal [facility] Comment on above: Result Comment: Child Adolescent Psychiatrist frantz Kidney disease, GFR = <60.Kidney failure, GFR = <15.The GFR estimate is not adjusted for extreme body surface area or acute process, nor has it been validated for women or ethnic groups other than and .Testing performed at [place] [address] Performed By: #### A CBC, CHEM7F, BHCG2 ####[place] [address] Glucose mass conc 90 mg/dL Normal 70-100 [facility] Comment on above: Result Comment: NORM AL <100 mg/dLPREDIABETES 101-126 mg/dLDIABETES 126 mg/dL or higher Performed By: #### A CBC, CHEM7F, BHCG2 ####[place] [address] Potassium molar conc 3.4 mmol/L Low 3.5-5.1 [facility] Comment on above: Performed By: #### A CBC, CHEM7F, BHCG2 ####[place] [address] Sodium molar conc 137 mmol/L Normal 137-145 [facility] Comment on above: Performed By: #### A CBC, CHEM7F, BHCG2 ####[place] [address] Urea nitrogen mass conc (Bld) 4 mg/dL Low 7-20 [facility] Comment on above: Performed By: #### A CBC, CHEM7F, BHCG2 ####[place] [address] GENITAL CULTUREon 10-15-2017 GENITAL CULTURE SPECIMEN DESCRIPTION [...] PRESENT * Result Note: Testing performed at [place] [address] *REPORT STATUS 10/17/2017 * Result Note: FINAL * Normal [facility] Comment on above: Performed By: #### G ENC ####[place] [address] NATA PREPARATIONon 10-15-2017 NATA PREPARATION SPECIMEN DESCRIPTION VAGINAL SPECIMENKOH PREP NO YEAST SEEN * Result Note: VERIFIED BY DUP TESTING * * Result Note: Testing performed at [place] [address] *REPORT STATUS 10/15/2017 * Result Note: FINAL * Normal [facility] Comment on above: Performed By: #### K OHP ####[place] [address] US OB TRANSVAGINAL/CERVICAL LENGTHon 10-15-2017 US OB [...] weeks gestation for evaluation of anatomy. Normal [facility] WET PREPon 10-15-2017 WET PREP SPECIMEN DESCRIPTION VAGINAL SPECIMENWET PREP NO TRICHOMONAS SEEN * Result Note: NO CLUE CELLS SEEN * * Result Note: VERIFIED BY DUP TESTING * * Result Note: Testing performed at [place] [address] *REPORT STATUS 10/15/2017 * Result Note: FINAL * Normal [facility] Comment on above: Performed By: #### W ETP ####[place] [address] CMP FASTINGon 09-03-2017 A:G RATIO 1.1 RATIO Low 1.3-2.2 [facility]3] Comment on above: Performed By: #### C MPF ####Testing performed at [place] [id number] Albumin mass conc 3.9 G/dl Normal 3.5-5.0 [facility]3] Comment on above: Performed By: #### C MPF ####Testing performed at [place] [id number] Creatinine mass conc 0.8 mg/dL Normal 0.52-1.04 [facility] Comment on above: Performed By: #### C MPF ####Testing performed at [place] [id number] EST. GFR, >60 Normal [facility]3] Comment on above: Performed By: #### C MPF ####Testing performed at [place] [id number] EST. GFR,Non >60 Normal [facility]3] Comment on above: Performed By: #### C MPF ####[place] [address] GFR/1.73 sq M predicted among non-blacks MDRD vol rate/area (S/P/Bld) Average GFR for 20-29 years old = 116. Normal [facility]3] Comment on above: Result Comment: Child Adolescent Psychiatrist frantz Kidney disease, GFR = <60.Kidney failure, GFR = <15.The GFR estimate is not adjusted for extreme body surface area or acute process, nor has it been validated for women or ethnic groups other than and . Performed By: #### C MPF ####[place] [address] Urea nitrogen mass conc (Bld) 6 mg/dL Low 7-20 [facility]3] Comment on above: Performed By: #### C MPF ####Testing performed at [place] [id number] ALP enzyme act/vol 75 U/L Normal 38-126 [facility]3] Comment on above: Performed By: #### C MPF ####Testing performed at [place] [id number] ALT enzyme act/vol 18 U/L Normal 14-54 [facility]3] Comment on above: Performed By: #### C MPF ####Testing performed at [address] [address] AST enzyme act/vol 23 U/L Normal 15-41 [facility]3] Comment on above: Performed By: #### C MPF ####Testing performed at [address] [address] Bilirubin mass conc 1.2 mg/dL Normal 0.2-1.2 [facility]3] Comment on above: Performed By: #### C MPF ####Testing performed at [address] [address] Protein mass conc 7.4 g/dL Normal 6.3-8.2 [facility]3] Comment on above: Performed By: #### C MPF ####Testing performed at [address] [address] Calcium mass conc 8.9 mg/dL Normal 8.4-10.2 [facility]3] Comment on above: Performed By: #### C MPF ####Testing performed at [address] [address] Chloride molar conc 108 mmol/L High 98-107 [facility]3] Comment on above: Performed By: #### C MPF ####Testing performed at [address] [address] CO2 molar conc 19 mmol/L Critically low 22-30 [facility]3] Comment on above: Result Comment: Resu lt called to read back by: CHUCK FLETCHER 09/03/2017 @ 18:34 by DDD Performed By: #### C MPF ####Testing performed at [address] [address] Glucose mass conc 96 mg/dL Normal 70-100 [facility]3] Comment on above: Result Comment: NORM AL <100 mg/dLPREDIABETES 101-126 mg/dLDIABETES 126 mg/dL or higher Performed By: #### C MPF ####Testing performed at [address] [address] Potassium molar conc 3.8 mmol/L Normal 3.5-5.1 [facility] Comment on above: Performed By: #### C MPF ####Testing performed at [address] [address] Sodium molar conc 138 mmol/L Normal 137-145 [facility]3] Comment on above: Performed By: #### C MPF ####Testing performed at [address] [address] [address] ABDOMEN/PELVIS WITHOUT CO NTRASTon 09-03-2017 CT ABDOMEN/PELVIS WITHOUT CONTRAST EXAM TYPE: CT ABDOMEN/PELVIS WITHOUT CONTRASTEXAM DATE AND TIME: 09/03/2017 6:23 PM.INDICATION: 26 dibi-xgy-ljcxmb with bleeding. History of Crohn's disease. Prior [...] is predominantly decompressed. 3. Normal appendix. Normal [facility]3] ED NOTEon 09-03-2017 [facility] NOTES Normal [facility] NOTES Normal [facility]3] [facility] NOTES Normal [facility] NOTES Normal [facility]3] ED PROVIDERon 09-03-2017 [facility] CAC NOTES Normal [facility]3] [facility] NOTES Normal [facility]3] URINE HCG QUALon 09-03-2017 HCG.beta subunit ( test) Ql (U) Negative Normal NEGATIVE [facility]3] Comment on above: Performed By: #### U HCGT, UMAC ####Testing performed at [address] [address] URINE MACROSCOPICon 10-30-20 17 Bilirubin Ql (U) Negative Normal NEGATIVE [facility]3] Comment on above: Performed By: #### U HCGT, UMAC ####Testing performed at [address] [address] Clarity Nom (U) CLEAR Abnormal CLEAR [facility]3] Comment on above: Performed By: #### U HCGT, UMAC ####Testing performed at [place] [id number] Color Nom (U) YELLOW Normal YELLOW [facility]3] Comment on above: Performed By: #### U HCGT, UMAC ####[place] [address] Glucose Ql (U) Negative Normal NEGATIVE [facility]3] Comment on above: Performed By: #### U HCGT, UMAC ####[place] [address] pH Test strip (U) 6.0 [pH] Normal 5.0-7.0 [facility]3] Comment on above: Performed By: #### U HCGT, UMAC ####Testing performed at [address] [address] URINE HEMOGLOBIN Negative Normal NEGATIVE [facility]3] Comment on above: Performed By: #### U HCGT, UMAC ####Testing performed at [address] [place] [address] URINE KETONE Negative Normal NEGATIVE [facility]3] Comment on above: Performed By: #### U HCGT, UMAC ####Testing performed at [address] [address] URINE LEUKOTEST Negative Normal NEGATIVE [facility]3] Comment on above: Performed By: #### U HCGT, UMAC ####Testing performed at [address] [address] URINE NITRATES Negative Normal NEGATIVE [facility]3] Comment on above: Performed By: #### U HCGT, UMAC ####Testing performed at [address] [address] URINE SPEC GRAVITY 1.015 Normal 1.010-1.025 [facility]3] Comment on above: Performed By: #### U HCGT, UMAC ####Testing performed at [address] [address] URINE TOTAL PROTEIN Negative Normal NEGATIVE [facility]3] Comment on above: Performed By: #### U HCGT, UMAC ####Testing performed at [address] [address] Urobilinogen Test strip Qn (U) 0.2 mg/dl Normal 0.2-1.0 [facility]3] Comment on above: Performed By: #### U HCGT, UMAC ####Testing performed at [address] [address] Comp Metabolic Panelon 08-28 Alanine aminotransferase (ALT) 29 U/L Normal 12-78 [facility] Comment on above: Performed By: #### H EMDF, CMP3 ####[place] [address] [place] [address] Albumin 3.8 g/dL Normal 3.4-5.0 [facility] Comment on above: Performed By: #### H EMDF, CMP3 ####[place] [address] [place] [address] Alkaline phosphatase (ALP) 107 U/L Normal 45-117 [facility] Comment on above: Performed By: #### H EMDF, CMP3 ####[place] Z[address] [place] [address] Anion gap 10 mmol/L Normal [facility] Comment on above: Performed By: #### H EMDF, CMP3 ####[place] Sxy[address] [place] [address] Aspartate aminotransferase (AST) 16 U/L Normal 15-37 [facility] Comment on above: Performed By: #### H EMDF, CMP3 ####[place] [address] [place] [address] Bilirubin (total) 1.0 mg/dL Normal 0.2-1.0 [facility] Comment on above: Performed By: #### H EMDF, CMP3 ####[place] Ydf[address] [place] [address] Calcium 9.1 mg/dL Normal 8.2-10.1 [facility] Comment on above: Performed By: #### H SHARMILA CMP3 ####[place] [address] [place] [address] Chloride 102 mmol/L Normal 98-109 [facility] Comment on above: Performed By: #### H SHARMILA CMP3 ####[place] [place] [address] CO2 27 mmol/L Normal 21-32 [facility] Comment on above: Performed By: #### H SHARMILA CMP3 ####[place] C[address]or[address] [place] [address] Creatinine 0.94 mg/dL Normal 0.55-1.40 [facility] Comment on above: Performed By: #### Franklin DOLL CMP3 ####[place] BessBkdlac[address] [place] [address] eGFR (black) mL/min/{1.73_m2} Normal >60 [facility] Comment on above: Performed By: #### H GURJIT DOLL3 ####Parish BessArqzmg[address] [place] [address] eGFR (non-black) mL/min/{1.73_m2} Normal >60 [facility] Comment on above: Result Comment: Sour ce- MDRD equation with creatinine calibration to IDMS(NKDEP)eGFR not recommended for drug dose adjustment Performed By: #### H SHARMILA CMP3 ####[place] BessXvhpoo[address] [place] [address] Glucose mass conc 86 mg/dL Normal 70-100 [facility] Comment on above: Result Comment: . Performed By: #### H SHARMILA CMP3 ####[place]fecx[address] [place] [address] Potassium molar conc 3.4 mmol/L Low 3.5-5.1 [facility] Comment on above: Performed By: #### H SHARMILA CMP3 ####[place] [address] [place] [address] Protein 8.2 g/dL Normal 6.4-8.2 [facility] Comment on above: Performed By: #### Franklin DOLL CMP3 ####[place] Aryx[address] [place] [address] Sodium 139 mmol/L Normal 135-145 [facility] Comment on above: Performed By: #### H SHARMILA CMP3 ####[place] [address] [place] [address] Urea nitrogen 9 mg/dL Normal 7-25 [facility] Comment on above: Performed By: #### H EMDF, CMP3 ####[facility] HealthYsxoin[address] [place] [address] Hemogram w/ Autodiffon 08-28 Abs Baso Cnt 0.1 10*3/uL Normal 0.0-0.2 [facility] Comment on above: Performed By: #### H SHARMILA CMP3 ####[facility] HealthFifwlm2574 [place] [address] Basophils/100 WBC Auto (Bld) 0.6 % Normal [facility] Comment on above: Performed By: #### H EMDF, CMP3 ####[facility] HealthEzxihn0140 [place] [address] Eosinophils 0.3 10*3/uL Normal 0.0-0.5 [facility] Comment on above: Performed By: #### H SHARMILA CMP3 ####[facility] HealthRdhrcs4840 [place] [address] Eosinophils/100 leukocytes 2.9 % Normal [facility] Comment on above: Performed By: #### H EMDBrooke, CMP3 ####[place] L[address]zq[address] [place] [address] Erythrocyte distribution width Auto Ratio (RBC) 13.7 % Normal 11.5-14.5 [facility] Comment on above: Performed By: #### H EMDBrooke CMP3 ####[place] [address] [place] [address] Erythrocytes (RBC) 5.35 10*6/uL High 3.80-5.20 [facility] Comment on above: Performed By: #### H EMDF, CMP3 ####[place] Mredif[address]87 [place] [address] Granulocytes/100 WBC (Bld) 64.4 % Normal [facility] Comment on above: Performed By: #### H SHARMILA CMP3 ####[place] Udjxpx[address]246 [place] [address] Hematocrit (HCT) 42.8 % Normal 35.0-47.0 [facility] Comment on above: Performed By: #### H SHARMILA CMP3 ####[address] [place] [address] Hemoglobin mass conc (Bld) 13.9 g/dL Normal 11.7-16.0 [facility] Comment on above: Performed By: #### H EMDBrooke CMP3 ####[place] [address] [place] [address] Lymphocytes 2.6 10*3/uL Normal 1.0-4.3 [facility] Comment on above: Performed By: #### H EMDBrooke CMP3 ####[place] [address] [place] [address] Lymphocytes/100 leukocytes 25.5 % Normal [facility] Comment on above: Performed By: #### H SHARMILA CMP3 ####[place] B[address]sh[address] [place] [address] MCH 26.0 pg Normal 26.0-34.0 [facility] Comment on above: Performed By: #### H EMDBrooke CMP3 ####[place] Q[address]rvl[address] [place] [address] MCHC mass conc (RBC) 32.5 % Normal 32.0-36.0 [facility] Comment on above: Performed By: #### H SHARMILA CMP3 ####[place] [address] [place] [address] MCV 79.9 fL Normal 79.0-98.0 [facility] Comment on above: Performed By: #### H EMDBrooke CMP3 ####[place] [address] [place] [address] Monocytes 0.7 10*3/uL Normal 0.0-0.8 [facility] Comment on above: Performed By: #### H EMDF CMP3 ####[place] Haqjbo[address] [place] [address] Monocytes/100 leukocytes 6.6 % Normal [facility] Comment on above: Performed By: #### H EMDF, CMP3 ####[place] Inqfcx[address] [place] [address] Neutrophils 6.5 10*3/uL Normal 1.8-7.0 [facility] Comment on above: Performed By: #### H EMDF, CMP3 ####[place] V[address]pbzf[address] [place] [address] Platelet mean volume (PMV) 8.6 fL Normal 7.4-10.4 [facility] Comment on above: Performed By: #### H EMDF, CMP3 ####[place] Fylxli[address] [place] [address] Platelets 279 10*3/uL Normal 140-440 [facility] Comment on above: Performed By: #### H EMDF, CMP3 ####[place] Gqkzlc[address] [place] [address] WBC (Leukocytes) 10.2 10*3/uL Normal 3.6-10.7 [facility] Comment on above: Performed By: #### H EMDF, CMP3 ####[place] Fmarya[address] [place] [address] Urinalysis,Macroon [address] 7 Bilirubin (direct) Negative Normal Negative [facility] Comment on above: Performed By: #### U AMAC, UAMIC ####[place] Ymebky[address] [place] [address] Ketone,Urine Negative Normal Negative [facility] Comment on above: Performed By: #### U AMAC, UAMIC ####[place] N[address]cp[address] [place] [address] Occult Blood,Ur Negative Normal Negative [facility] Comment on above: Performed By: #### U AMAC, UAMIC ####[place] Ctxjze[address] [place] [address] Specific [place],Urine 1.005 Normal 1.005-1.030 [facility] Comment on above: Performed By: #### U AMAC, UAMIC ####[place] Akf[address] [place] [address] Total Protein,Urine Negative Normal Negative [facility] Comment on above: Performed By: #### U AMAC, UAMIC ####[place] Esncld[address] [place] [address] Urine, appearance Clear Normal Clear [facility] Comment on above: Performed By: #### U AMAC, UAMIC ####[place] Msyhqp[address] [place] [address] Urine, color Yellow Normal Lt. Yellow [facility] Comment on above: Performed By: #### U AMAC, UAMIC ####[place] Jfh[address] [place] [address] Urine, glucose presence NEG (Normal) Normal Negative [facility] Comment on above: Performed By: #### U AMAC, UAMIC ####[place] Qkffzy[address] [place] [address] Urine, nitrite presence Negative Normal Negative [facility] Comment on above: Performed By: #### U AMAC, UAMIC ####[place] Yukcih[address] [place] [address] Urine, pH 7.0 [pH] Normal 5.0-8.0 [facility] Comment on above: Performed By: #### U AMAC, UAMIC ####[place] Jeclai[address] [place] [address] Urine, urobilinogen Normal (0.2) Normal 0-1 [facility] Comment on above: Performed By: #### U AMAC, UAMIC ####[place] Ptlqyc[address] [place] [address] WBC (Leukocytes) Trace Normal Negative [facility] Comment on above: Performed By: #### U AMAC, UAMIC ####[place] Mzwsof[address] [place] [address] Urinalysis,Microscopicon Urine, bacteria in sediment Many (51-100) Normal Negative [facility] Comment on above: Performed By: #### U AMAC, UAMIC ####[place] [address]icrjc[address] [place] [address] Urine, epithelial cells in sediment 6-10 Normal 3-5 [facility] Comment on above: Performed By: #### U AMAC, UAMIC ####[place] Pjhwum[address] [place] [address] Urine, erythrocytes in sediment by area 0-2 Normal 0-2 [facility] Comment on above: Performed By: #### U AMAC, UAMIC ####[place] V[address]mat[address] [place] [address] Urine, leukocytes in sedmiment 0-2 Normal 0-5 [facility] Comment on above: Performed By: #### U AMAC, UAMIC ####[address] [place] [address] Influenza virus A and B and SARS-CoV-2 (COVID-19) Ag panel - Upper respiratory specim SARS-CoV-2 (COVID-19) RNA JYOTI+probe Ql (Resp) [facility] Work Phone: Vital Signs Date Time Vital Sign Value Performing Clinician Facility 05-13-2025 12:46-0400 Body height 162.6 cm Zoë Santana MD Work Phone: [facility] 05-13-2025 12:46-0400 Body mass index (BMI) [Ratio] 52.7 kg/m2 Zoë Santana MD Work Phone: [facility] 05-13-2025 12:46-0400 Body weight 139.25 kg Zoë Santana MD Work Phone: [facility] 05-13-2025 12:46-0400 Diastolic blood pressure 76 mm[Hg] Zoë Santana MD Work Phone: [facility] 05-13-2025 12:46-0400 Heart rate 62 /min Zoë Santana MD Work Phone: [facility] 05-13-2025 12:46-0400 SaO2% (BldA) [Mass fraction] 96 % Zoë Santana MD Work Phone: [facility] 05-13-2025 12:46-0400 Systolic blood pressure 128 mm[Hg] Zoë Santana MD Work Phone: [facility] 03-10-2025 12:49-0400 Body mass index (BMI) [Ratio] 52.03 kg/m2 Carline Pollack MD Work Phone: [facility] 03-10-2025 12:49-0400 Body weight 137.49 kg Carline Pollack MD Work Phone: [facility] 03-10-2025 12:49-0400 Diastolic blood pressure 77 mm[Hg] Carline Pollack MD Work Phone: [facility] 03-10-2025 12:49-0400 Heart rate 110 /min Carline Pollack MD Work Phone: [facility] 03-10-2025 12:49-0400 Systolic blood pressure 128 mm[Hg] Carline Pollack MD Work Phone: [facility] 03-03-2025 11:38-0400 Body height 162.6 cm Zoë Santana MD Work Phone: [facility] 03-03-2025 11:38-0400 Body mass index (BMI) [Ratio] 52.18 kg/m2 Zoë Santana MD Work Phone: [facility] 03-03-2025 11:38-0400 Body weight 137.89 kg Zoë Santana MD Work Phone: [facility] 03-03-2025 11:38-0400 Diastolic blood pressure 83 mm[Hg] Zoë Santana MD Work Phone: [facility] 03-03-2025 11:38-0400 Heart rate 93 /min Zoë Santana MD Work Phone: [facility] 03-03-2025 11:38-0400 SaO2% (BldA) [Mass fraction] 96 % Zoë Santana MD Work Phone: [facility] 03-03-2025 11:38-0400 Systolic blood pressure 142 mm[Hg] Zoë Santana MD Work Phone: [facility] 03-01-2025 17:52-0400 Body temperature 97.9 [degF] Jose Guadalupe Mills MD Work Phone: [facility] 03-01-2025 17:52-0400 Diastolic blood pressure 82 mm[Hg] Jose Guadalupe Mills MD Work Phone: [facility] 03-01-2025 17:52-0400 Heart rate 102 /min Jose Guadalupe Mills MD Work Phone: [facility] 03-01-2025 17:52-0400 Respiratory rate 16 /min Jose Guadalupe Mills MD Work Phone: [facility] 03-01-2025 17:52-0400 SaO2% (BldA) [Mass fraction] 100 % Jose Guadalupe Mills MD Work Phone: [facility] 03-01-2025 17:52-0400 Systolic blood pressure 131 mm[Hg] Jose Guadalupe Mills MD Work Phone: [facility] 03-01-2025 16:42-0400 Body height 162.6 cm Jose Guadalupe Mills MD Work Phone: [facility] 03-01-2025 16:42-0400 Body mass index (BMI) [Ratio] 52.98 kg/m2 Jose Guadalupe Mills MD Work Phone: [facility] 03-01-2025 16:42-0400 Body weight 140 kg Jose Guadalupe Mills MD Work Phone: [facility] 02-16-2025 14:11-0400 Body temperature 98.4 [degF] Kelli Matthews MD Work Phone: [facility] 02-16-2025 14:11-0400 Diastolic blood pressure 79 mm[Hg] Kelli Matthews MD Work Phone: [facility] 02-16-2025 14:11-0400 Heart rate 96 /min Kelli Matthews MD Work Phone: [facility] 02-16-2025 14:11-0400 Respiratory rate 20 /min Kelli Matthews MD Work Phone: [facility] 02-16-2025 14:11-0400 SaO2% (BldA) [Mass fraction] 99 % Kelli Matthews MD Work Phone: [facility] 02-16-2025 14:11-0400 Systolic blood pressure 146 mm[Hg] Kelli Matthews MD Work Phone: [facility] 02-16-2025 14:09-0400 Body height 163.8 cm Kelli Matthews MD Work Phone: [facility] 02-16-2025 14:09-0400 Body mass index (BMI) [Ratio] 50.67 kg/m2 Kelli Matthews MD Work Phone: [facility] 02-16-2025 14:09-0400 Body weight 136 kg Kelli Matthews MD Work Phone: [facility] 02-15-2025 10:20-0400 Body temperature 98.2 [degF] Earl Colorado MD Work Phone: [facility] 02-15-2025 10:20-0400 Diastolic blood pressure 71 mm[Hg] Earl Colorado MD Work Phone: [facility] 02-15-2025 10:20-0400 Heart rate 88 /min Earl Colorado MD Work Phone: [facility] 02-15-2025 10:20-0400 Respiratory rate 20 /min Earl Colorado MD Work Phone: [facility] 02-15-2025 10:20-0400 SaO2% (BldA) [Mass fraction] 99 % Earl Colorado MD Work Phone: [facility] 02-15-2025 10:20-0400 Systolic blood pressure 130 mm[Hg] Earl Colorado MD Work Phone: [facility] 02-09-2025 11:31-0400 Body mass index (BMI) [Ratio] 52.53 kg/m2 Earl Colorado MD Work Phone: [facility] 02-09-2025 11:31-0400 Body weight 141 kg Earl Colorado MD Work Phone: [facility] 02-08-2025 19:26-0400 Body temperature 37 Earl Colordao MD Work Phone: [facility] 02-08-2025 19:10-0400 Body temperature 37.0 degrees Celsius EARL [place] [facility] Comment on above: Performed By: #### [id number] #### QUIN Simon ([id number]) [facility] ([facility]) [address] [place] [address] 02-08-2025 18:10-0400 Body height 163.8 cm Earl Colorado MD Work Phone: [facility] 01-15-2025 06:35-0400 Body temperature 97.9 [degF] Earl Colorado MD Work Phone: [facility] 01-15-2025 06:35-0400 Diastolic blood pressure 55 mm[Hg] Earl Colorado MD Work Phone: [facility] 01-15-2025 06:35-0400 Heart rate 62 /min Earl Colorado MD Work Phone: [facility] 01-15-2025 06:35-0400 Respiratory rate 16 /min Earl Colorado MD Work Phone: [facility] 01-15-2025 06:35-0400 SaO2% (BldA) [Mass fraction] 99 % Earl Colorado MD Work Phone: [facility] 01-15-2025 06:35-0400 Systolic blood pressure 115 mm[Hg] Earl Colorado MD Work Phone: [facility] 01-15-2025 02:07-0400 Body height 162.6 cm Earl Colorado MD Work Phone: [facility] 01-15-2025 02:07-0400 Body mass index (BMI) [Ratio] 50.71 kg/m2 Earl Colorado MD Work Phone: [facility] 01-15-2025 02:07-0400 Body weight 134 kg Earl Colorado MD Work Phone: [facility] 01-08-2025 19:59-0500 Body temperature 97.9 [degF] Earl Colorado MD Work Phone: [facility] 01-08-2025 19:59-0500 Diastolic blood pressure 81 mm[Hg] Earl Colorado MD Work Phone: [facility] 01-08-2025 19:59-0500 Heart rate 88 /min Earl Colorado MD Work Phone: [facility] 01-08-2025 19:59-0500 Respiratory rate 17 /min Earl Colorado MD Work Phone: [facility] 01-08-2025 19:59-0500 SaO2% (BldA) [Mass fraction] 98 % Earl Colorado MD Work Phone: [facility] 01-08-2025 19:59-0500 Systolic blood pressure 133 mm[Hg] Earl Colorado MD Work Phone: [facility] 01-08-2025 15:49-0500 Body height 162.6 cm Earl Colorado MD Work Phone: [facility] 01-08-2025 15:49-0500 Body mass index (BMI) [Ratio] 50.37 kg/m2 Earl Colorado MD Work Phone: [facility] 01-08-2025 15:49-0500 Body weight 133.1 kg Earl Colorado MD Work Phone: [facility] 12-25-2024 11:19-0500 Body temperature 98.1 [degF] Daisy Crews MD Work Phone: [facility] [facility]25-[facility]24 11:19-0500 Diastolic blood pressure 84 mm[Hg] Daisy Crews MD Work Phone: [facility] 12-25-2024 11:19-0500 Heart rate 81 /min Daisy Crews MD Work Phone: [facility] 12-25-2024 11:19-0500 Respiratory rate 19 /min Daisy Crews MD Work Phone: [facility] 12-25-2024 11:19-0500 SaO2% (BldA) [Mass fraction] 100 % Daisy Crews MD Work Phone: [facility] 12-25-2024 11:19-0500 Systolic blood pressure 137 mm[Hg] Daisy Crews MD Work Phone: [facility] 12-23-2024 16:45-0500 Body height 163.8 cm Daisy Crews MD Work Phone: [facility] 12-23-2024 16:45-0500 Body mass index (BMI) [Ratio] 48.32 kg/m2 Daisy Crews MD Work Phone: [facility] 12-23-2024 16:45-0500 Body weight 129.7 kg Daisy Crews MD Work Phone: [facility] 11-25-2024 13:09-0500 Body temperature 97.81 [degF] Sugey Pride MD Work Phone: [facility] 11-25-2024 13:09-0500 Body weight 122.02 kg Sugey Pride MD Work Phone: [facility] 11-25-2024 13:09-0500 Diastolic blood pressure 74 mm[Hg] Sugey Pride MD Work Phone: [facility] 11-25-2024 13:09-0500 Heart rate 90 /min Sugey Pride MD Work Phone: [facility] 11-25-2024 13:09-0500 Systolic blood pressure 116 mm[Hg] Sugey Pride MD Work Phone: [facility] 02-22-2024 17:52-0400 Body temperature 97.3 [degF] [facility] 02-22-2024 17:52-0400 Diastolic blood pressure 96 mm[Hg] [facility] 02-22-2024 17:52-0400 Heart rate 79 /min [facility] 02-22-2024 17:52-0400 Respiratory rate 16 /min [facility] 02-22-2024 17:52-0400 SaO2% (BldA) [Mass fraction] 97 % [facility] 02-22-2024 17:52-0400 Systolic blood pressure 121 mm[Hg] [facility] 02-22-2024 14:10-0400 Body height 163.83 cm [facility] 02-22-2024 14:10-0400 Body mass index (BMI) [Ratio] 42.8 kg/m2 [facility] 02-22-2024 14:10-0400 Body weight 114.94 kg [facility] 12-05-2023 11:46-0500 Diastolic blood pressure 72 mm[Hg] [facility] 12-05-2023 11:46-0500 Heart rate 84 /min [facility] 12-05-2023 11:46-0500 Respiratory rate 16 /min [facility] 12-05-2023 11:46-0500 SaO2% (BldA) [Mass fraction] 98 % [facility] 12-05-2023 11:46-0500 Systolic blood pressure 138 mm[Hg] [facility] 12-05-2023 07:38-0500 Body height 162.99 cm [facility] 12-05-2023 07:38-0500 Body mass index (BMI) [Ratio] 46.8 kg/m2 [facility] 12-05-2023 07:38-0500 Body temperature 97.8 [degF] [facility] 12-05-2023 07:38-0500 Body weight 124.51 kg [facility] 12-04-2023 16:09-0500 Body height 162.56 cm [facility] 12-04-2023 16:09-0500 Body mass index (BMI) [Ratio] 47.1 kg/m2 [facility] 12-04-2023 16:09-0500 Body temperature 98.1 [degF] [facility] 12-04-2023 16:09-0500 Body weight 124.51 kg [facility] 12-04-2023 16:09-0500 Diastolic blood pressure 85 mm[Hg] [facility] 12-04-2023 16:09-0500 Heart rate 68 /min [facility] 12-04-2023 16:09-0500 Respiratory rate 16 /min [facility] 12-04-2023 16:09-0500 SaO2% (BldA) [Mass fraction] 99 % [facility] 12-04-2023 16:09-0500 Systolic blood pressure 143 mm[Hg] [facility] 11-17-2023 04:51-0500 Diastolic blood pressure 78 mm[Hg] [facility] 11-17-2023 04:51-0500 Systolic blood pressure 113 mm[Hg] [facility] 11-17-2023 03:51-0500 SaO2% (BldA) [Mass fraction] 98 % [facility] 11-17-2023 02:59-0500 Body temperature 97.9 [degF] [facility] 11-17-2023 02:59-0500 Heart rate 77 /min [facility] 11-17-2023 02:59-0500 Respiratory rate 16 /min [facility] 11-17-2023 02:54-0500 Body height 162.56 cm [facility] 11-17-2023 02:54-0500 Body mass index (BMI) [Ratio] 50.1 kg/m2 [facility] 11-17-2023 02:54-0500 Body weight 132.5 kg [facility] 10-25-2023 14:57-0500 Body height 162.56 cm [facility] 10-25-2023 14:57-0500 Body mass index (BMI) [Ratio] 50 kg/m2 [facility] 10-25-2023 14:57-0500 Body temperature 97.7 [degF] [facility] 10-25-2023 14:57-0500 Body weight 132.16 kg [facility] 10-25-2023 14:57-0500 Diastolic blood pressure 85 mm[Hg] [facility] 10-25-2023 14:57-0500 Heart rate 81 /min [facility] 10-25-2023 14:57-0500 Respiratory rate 16 /min [facility] 10-25-2023 14:57-0500 SaO2% (BldA) [Mass fraction] 100 % [facility] 10-25-2023 14:57-0500 Systolic blood pressure 147 mm[Hg] [facility] 09-05-2023 07:00-0400 Diastolic blood pressure 88 mm[Hg] [facility] 09-05-2023 07:00-0400 Systolic blood pressure 145 mm[Hg] [facility] 09-05-2023 05:50-0400 Respiratory rate 18 /min [facility] 09-05-2023 05:50-0400 SaO2% (BldA) [Mass fraction] 98 % [facility] 09-05-2023 03:56-0400 Body mass index (BMI) [Ratio] 49.7 kg/m2 [facility] 09-05-2023 03:56-0400 Body temperature 98.1 [degF] [facility] 09-05-2023 03:56-0400 Body weight 131.4 kg [facility] 09-05-2023 03:56-0400 Heart rate 80 /min [facility] 06-05-2023 07:10-0400 Diastolic blood pressure 90 mm[Hg] [facility] 06-05-2023 07:10-0400 Heart rate 50 /min [facility] 06-05-2023 07:10-0400 Respiratory rate 16 /min [facility] 06-05-2023 07:10-0400 SaO2% (BldA) [Mass fraction] 100 % [facility] 06-05-2023 07:10-0400 Systolic blood pressure 150 mm[Hg] [facility] 06-05-2023 04:33-0400 Body height 162.56 cm [facility] 06-05-2023 04:33-0400 Body mass index (BMI) [Ratio] 46.3 kg/m2 [facility] 06-05-2023 04:33-0400 Body temperature 98.9 [degF] [facility] 06-05-2023 04:33-0400 Body weight 122.46 kg [facility] 05-17-2023 16:27-0400 Respiratory rate 18 /min [facility] 05-17-2023 15:25-0400 Body mass index (BMI) [Ratio] 45.8 kg/m2 [facility] 05-17-2023 15:25-0400 Body temperature 98.4 [degF] [facility] 05-17-2023 15:25-0400 Body weight 120.97 kg [facility] 05-17-2023 15:25-0400 Diastolic blood pressure 96 mm[Hg] [facility] 05-17-2023 15:25-0400 Heart rate 83 /min [facility] 05-17-2023 15:25-0400 SaO2% (BldA) [Mass fraction] 100 % [facility] 05-17-2023 15:25-0400 Systolic blood pressure 134 mm[Hg] [facility] 01-21-2023 17:09-0400 Respiratory rate 18 /min No Primary Care Physician [facility] 01-21-2023 15:10-0400 Body height 162.56 cm No Primary Care Physician [facility] 01-21-2023 15:10-0400 Body mass index (BMI) [Ratio] 46.7 kg/m2 No Primary Care Physician [facility] 01-21-2023 15:10-0400 Body temperature 96.3 [degF] No Primary Care Physician [facility] 01-21-2023 15:10-0400 Body weight 123.61 kg No Primary Care Physician [facility] 01-21-2023 15:10-0400 Diastolic blood pressure 78 mm[Hg] No Primary Care Physician [facility] 01-21-2023 15:10-0400 Heart rate 77 /min No Primary Care Physician [facility] 01-21-2023 15:10-0400 SaO2% (BldA) [Mass fraction] 100 % No Primary Care Physician [facility] 01-21-2023 15:10-0400 Systolic blood pressure 136 mm[Hg] No Primary Care Physician [facility] 12-14-2022 23:31-0500 Diastolic blood pressure 72 mm[Hg] No Primary Care Physician [facility] 12-14-2022 23:31-0500 Heart rate 68 /min No Primary Care Physician [facility] 12-14-2022 23:31-0500 Respiratory rate 18 /min No Primary Care Physician [facility] 12-14-2022 23:31-0500 SaO2% (BldA) [Mass fraction] 100 % No Primary Care Physician [facility] 12-14-2022 23:31-0500 Systolic blood pressure 137 mm[Hg] No Primary Care Physician [facility] 12-14-2022 19:15-0500 Body height 162.56 cm No Primary Care Physician [facility] 12-14-2022 19:15-0500 Body mass index (BMI) [Ratio] 48 kg/m2 No Primary Care Physician [facility] 12-14-2022 19:15-0500 Body temperature 96.9 [degF] No Primary Care Physician [facility] 12-14-2022 19:15-0500 Body weight 127 kg No Primary Care Physician [facility] 10-26-2022 14:01-0500 Heart rate 65 /min No Primary Care Physician [facility] 10-26-2022 14:01-0500 Respiratory rate 18 /min No Primary Care Physician [facility] 10-26-2022 14:01-0500 SaO2% (BldA) [Mass fraction] 100 % No Primary Care Physician [facility] 10-26-2022 12:33-0500 Diastolic blood pressure 85 mm[Hg] No Primary Care Physician [facility] 10-26-2022 12:33-0500 Systolic blood pressure 114 mm[Hg] No Primary Care Physician [facility] 10-26-2022 10:01-0500 Body height 162.56 cm No Primary Care Physician [facility] Work Phone: 10-26-2022 10:01-0500 Body mass index (BMI) [Ratio] 48 kg/m2 No Primary Care Physician [facility] 10-26-2022 10:01-0500 Body temperature 96.8 [degF] No Primary Care Physician [facility] 10-26-2022 10:01-0500 Body weight 127 kg No Primary Care Physician [facility] 09-06-2022 18:51-0400 Diastolic blood pressure 88 mm[Hg] DR SALIMA CONSTANTINO MD [facility] 09-06-2022 18:51-0400 Heart rate 90 /min DR SALIMA CONSTANTINO MD [facility] 09-06-2022 18:51-0400 Respiratory rate 18 /min DR SALIMA CONSTANTINO MD [facility] 09-06-2022 18:51-0400 Systolic blood pressure 140 mm[Hg] DR SALIMA CONSTANTINO MD [facility] 09-06-2022 17:04-0400 Body temperature 98.96 [degF] DR SALIMA CONSTANTINO MD [facility] 09-06-2022 17:04-0400 Diastolic blood pressure 90 mm[Hg] DR SALIMA CONSTANTINO MD [facility] 09-06-2022 17:04-0400 Heart rate 93 /min DR SALIMA CONSTANTINO MD [facility] 09-06-2022 17:04-0400 Respiratory rate 18 /min DR SALIMA CONSTANTINO MD [facility] 09-06-2022 17:04-0400 Systolic blood pressure 151 mm[Hg] DR SALIMA CONSTANTINO MD [facility] 08-18-2022 21:28-0400 Body temperature 101 [degF] No Primary Care Physician [facility] 08-18-2022 21:03-0400 Diastolic blood pressure 76 mm[Hg] [facility] 08-18-2022 21:03-0400 Heart rate 78 /min [facility] 08-18-2022 21:03-0400 Respiratory rate 16 /min [facility] 08-18-2022 21:03-0400 SaO2% (BldA) [Mass fraction] 99 % [facility] 08-18-2022 21:03-0400 Systolic blood pressure 128 mm[Hg] [facility] 08-18-2022 16:21-0400 Body temperature 98.7 [degF] [facility] Work Phone: 08-18-2022 16:20-0400 Body height 162.56 cm [facility] Work Phone: 08-18-2022 16:20-0400 Body mass index (BMI) [Ratio] 46.3 kg/m2 [facility] 08-18-2022 16:20-0400 Body weight 122.4 kg [facility] 10-07-2018 12:45-0500 BMI (Body Mass Index) 46.59 kg/m2 [facility] Work Phone: 10-07-2018 12:45-0500 Body Temperature 97.59 [degF] [facility] Work Phone: 10-07-2018 12:45-0500 BP Diastolic 101 mm[Hg] [facility] Work Phone: 10-07-2018 12:45-0500 BP Systolic 141 mm[Hg] [facility] Work Phone: 10-07-2018 12:45-0500 Height 161.3 cm [facility] Work Phone: 10-07-2018 12:45-0500 Pulse (Heart Rate) 98 /min [facility] Work Phone: 10-07-2018 12:45-0500 Respiratory Rate 18 /min Joseph Renteria [facility] Work Phone: 10-07-2018 12:45-0500 Weight 121.2 kg Joseph Renteria [facility] Work Phone: 09-08-2018 15:52-0500 Respiratory Rate 16 /min Juan Pastor [facility] 09-08-2018 11:00-0500 Body Temperature 99.19 [degF] [facility] 09-08-2018 11:00-0500 BP Diastolic 72 mm[Hg] [facility] 09-08-2018 11:00-0500 BP Systolic 109 mm[Hg] [facility] 09-08-2018 11:00-0500 Pulse (Heart Rate) 122 /min [facility] 09-08-2018 11:00-0500 Pulse Oximetry 94 % [facility] Encounters Encounter Date Encounter Type Care Provider Facility Start: 06-04-2025 ambulatory [facility] Facility: [facility] Start: 06-02-2025 End: 06-02-2025 [address] [facility] Facility:[facility] Start: 05-20-2025 End: 05-20-2025 Emergency department patient visit [facility] Facility:[facility] Start: 05-13-2025 End: 05-13-2025 Office outpatient visit 25 minutes Zoë Santana MD Work Phone: [facility] Comment on above: Type 2 diabetes alix itus without complication, with long-term current use of insulin (Primary Dx); Benign essential HTN; Other insomnia; Healthcare maintenance; Hypomagnesemia Start: 05-13-2025 End: 05-13-2025 Patient encounter status Zoë Santana MD Work Phone: [facility] Work Phone: Start: 05-13-2025 End: 05-13-2025 ambulatory [facility] Start: 05-13-2025 End: 05-13-2025 Encounter for general adult medical examination without abnormal findings [facility] Start: 04-30-2025 End: 04-30-2025 ambulatory [facility] Facility:[facility] Start: 04-23-2025 End: 04-23-2025 ambulatory No Primary Care Physician Facility:[facility] Start: 04-14-2025 End: 04-14-2025 ambulatory [facility] Start: 04-07-2025 End: 04-07-2025 [facility] Start: 04-02-2025 End: 04-02-2025 ambulatory [facility] Start: 03-24-2025 End: 03-24-2025 ambulatory [facility] Start: 03-18-2025 End: 03-18-2025 ambulatory [facility] Start: 03-18-2025 End: 03-18-2025 ambulatory [facility] Start: 03-10-2025 End: 03-10-2025 Office outpatient visit 25 minutes Carline Pollack MD Work Phone: [facility] Comment on above: Encounter for postpa rtum visit (Primary Dx); History of gestational diabetes; Counseling for initiation of control method; History of pre-eclampsia; Bilateral lower extremity edema Start: 03-10-2025 End: 03-10-2025 ambulatory CARLINE POLLACK [facility] Start: 03-05-2025 End: 03-05-2025 ambulatory [facility] Facility:[facility] Start: 03-03-2025 End: 03-03-2025 Office outpatient new 45 minutes Zoë Santana MD Work Phone: [facility] Comment on above: Benign essential HTN (Primary Dx); Fatigue, unspecified type; Weight gain; History of gestational diabetes; Anemia, unspecified type; Screening for hyperlipidemia; Attention or concentration deficit; Leg edema; Gastroesophageal reflux disease without esophagitis; psychosis (Multi); Moderate depressive disorder; Anxiety Start: 03-03-2025 End: 03-03-2025 ambulatory [facility] Start: 03-01-2025 End: 03-01-2025 ambulatory JOSE GUADALUPE MILLS [facility] Start: 03-01-2025 End: 03-01-2025 Subsequent hospital visit by physician Jose Guadalupe Mills MD Work Phone: [facility] 2 Obstetrics and Gynecology Comment on above: Severe preeclampsia, third trimester (HHS-HCC) (Primary Dx); Insulin controlled gestational diabetes mellitus (GDM) in second trimester (HHS-HCC) Start: 02-24-2025 End: 02-24-2025 ambulatory Amberly Laboy Facility:[facility] Start: 02-19-2025 End: 02-19-2025 ambulatory Jaida Fiore Facility:[facility] Start: 02-16-2025 End: 02-16-2025 ambulatory KELLI MATTHEWS [facility] Start: 02-16-2025 End: 02-16-2025 Subsequent hospital visit by physician Kelli Matthews MD Work Phone: [facility] 2 Obstetrics and Gynecology Start: 02-10-2025 ambulatory Marisol Elliott Facility :[facility] Start: 02-08-2025 End: 02-15-2025 Evaluation and management of inpatient Earl Colorado MD Work Phone: [place] [phone] Comment on above: Severe preeclampsia, third trimester (HHS-HCC) (Primary Dx); care following vaginal delivery (HHS-HCC); Depression affecting in third trimester, antepartum ([facility]); Gastroesophageal reflux disease, unspecified whether esophagitis present Start: 02-05-2025 End: 02-05-2025 Subsequent hospital visit by physician Bridger Ovallet200 [facility] Ultrasound 4 [facility] [place] Comment on above: Gestational hyperten sal, second trimester (HHS-HCC); Insulin controlled gestational diabetes mellitus (GDM) in third trimester (HHS-HCC); Gestational hypertension w/o significant proteinuria in 3rd trimester (HHS-HCC) Start: 02-05-2025 End: 02-05-2025 ambulatory JOSE GUADALUPE GUPTA [facility] Start: 02-03-2025 ambulatory Amberly Laboy Facilit y:[facility] Start: 01-29-2025 End: 01-29-2025 Subsequent hospital visit by physician Bridger Lemons [facility] Ul[facility]ound 4 [facility] Comment on above: Gestational hyperten sal, second trimester ([facility]); Insulin controlled gestational diabetes mellitus (GDM) in third trimester ([facility]) Start: 01-29-2025 End: 01-29-2025 ambulatory [facility] Start: 01-29-2025 End: 01-29-2025 ambulatory Jaida Fiore [facility] Start: 01-27-2025 End: 01-27-2025 ambulatory Amberly Laboy [facility] Start: 01-22-2025 End: 01-22-2025 Subsequent hospital visit by physician Bridger Lemons [facility] Comment on above: Gestational hyperten sal, second trimester ([facility]); Insulin controlled gestational diabetes mellitus (GDM) in third trimester ([facility]); Gestational hypertension w/o significant proteinuria in 3rd trimester ([facility]) Start: 01-22-2025 End: 01-22-2025 ambulatory [facility] Start: 01-20-2025 End: 01-20-2025 ambulatory [facility] Start: 01-15-2025 End: 01-15-2025 Subsequent hospital visit by physician Bridger Lemons [facility] Comment on above: Screening, , for anatomic survey ([facility]); Obesity affecting in third trimester ([facility]); Gestational diabetes mellitus (GDM) requiring insulin ([facility]); Gestational hypertension w/o significant proteinuria in 3rd trimester ([facility]) Start: 01-15-2025 End: 01-15-2025 [facility] Start: 01-15-2025 End: 01-15-2025 ambulatory EARL Amos [facility] Start: 01-15-2025 End: 01-15-2025 Evaluation and management of inpatient Earl Colorado MD Work Phone: [facility] 2 Obstetrics and Gynecology Start: 01-13-2025 End: 01-13-2025 ambulatory Amberly Laboy Facility:[facility] Start: 01-08-2025 End: 01-08-2025 ambulatory EARL Amos STANISLAV [facility] Start: 01-08-2025 End: 01-08-2025 Evaluation and management of inpatient Earl Colorado MD Work Phone: [place] [phone] Obstetrics and Gynecology Comment on above: Gestational hyperten sal, second trimester (HHS-HCC) (Primary Dx) Start: 01-08-2025 End: 01-08-2025 Subsequent hospital visit by physician Bridger Cardoza00 [facility]yn[facility] Ultrasound 4 [facility] Comment on above: Screening, , for anatomic survey (HHS-HCC); Gestational hypertension (HHS-HCC); Obesity affecting (HHS-HCC); Gestational diabetes mellitus (GDM); AMA (advanced maternal age) multigravida 35+ (HHS-HCC) Start: 01-08-2025 End: 01-08-2025 ambulatory JOSE GUADALUPE [facility] Start: 01-06-2025 End: 01-06-2025 ambulatory Amberly Benoit [facility] Start: 01-02-2025 End: 01-02-2025 ambulatory Jaida Fiore Facility:[facility] Start: 01-01-2025 End: 01-01-2025 Subsequent hospital visit by physician Bridger Lemons [facility]ound 3 [facility] Comment on above: Screening, , for anatomic survey (HHS-HCC); Encounter for follow-up ultrasound of anatomy; Gestational diabetes requiring insulin (HHS-HCC); AMA (advanced maternal age) multigravida 35+ (HHS-HCC); Obesity affecting (HHS-HCC) Start: 01-01-2025 End: 01-01-2025 ambulatory EARL COLORADO [facility] Start: 12-23-2024 End: 12-25-2024 Evaluation and management of inpatient Daisy Crews MD Work Phone: [place] [phone] Comment on above: Insulin controlled g estational diabetes mellitus (GDM) in second trimester (HHS-HCC) (Primary Dx); Hyperglycemia in (HHS-HCC); Gestational hypertension, second trimester (HHS-HCC) Start: 12-17-2024 End: 12-17-2024 ambulatory Leticia Bergman [facility] Start: 12-17-2024 End: 12-17-2024 ambulatory Hemal Salinas Facility:[facility] Start: 12-03-2024 End: 12-03-2024 ambulatory [facility] Start: 12-01-2024 End: 12-01-2024 ambulatory No Primary Care Physician Facility:[facility] Start: 11-25-2024 End: 11-25-2024 Initial care visit Sugey Pride MD Work Phone: [facility] Comment on above: History of d elivery (Primary Dx) Start: 11-25-2024 End: 11-25-2024 ambulatory SUGEY PRIDE [facility] Start: 11-21-2024 End: 11-21-2024 ambulatory Jaida Bell [facility] Start: 11-18-2024 End: 11-18-2024 ambulatory [facility] Start: 11-14-2024 End: 11-14-2024 ambulatory MAJOR HERNANDEZ [facility] Start: 11-13-2024 End: 11-13-2024 Emergency department patient visit Major Mejia Facility:[facility] Start: 10-27-2024 End: 10-27-2024 [facility] Start: 10-24-2024 End: 10-24-2024 ambulatory [facility] Start: 10-24-2024 End: 10-24-2024 ambulatory Jaida Bell [facility] Start: 10-15-2024 End: 10-15-2024 ambulatory Mayela GRULLON [facility] Start: 10-13-2024 End: 10-14-2024 ambulatory Mayela GRULLON Facility:[facility] Start: 10-10-2024 End: 10-10-2024 ambulatory Amberly Haas Facility:[facility] Start: 10-09-2024 End: 10-10-2024 ambulatory JORGE L STANFORD Facility:[facility] Start: 10-09-2024 End: 10-09-2024 Emergency department patient visit Santi Shaver Facility:[facility] Start: 10-01-2024 ambulatory Leticia Bergman [facility] Fa cility:[facility] Start: 09-30-2024 End: 09-30-2024 ambulatory CLARKE [facility] Start: 09-25-2024 End: 09-25-2024 ambulatory Leticia Bergman [facility]SC Facility:[facility] Start: 09-25-2024 End: 09-25-2024 ambulatory Leticia Bergman [facility] Facility:[facility] Start: 09-02-2024 End: 09-02-2024 ambulatory Leticia Bergman VSC Facility:[facility] Start: 09-02-2024 End: 09-02-2024 ambulatory Leticia Bergman [facility] Facility:[facility] Start: 08-06-2024 End: 08-06-2024 Emergency department patient visit Leticia Bergman [facility] Facility:[facility] Start: 07-14-2024 End: 07-14-2024 ambulatory Leticia Bergman VSC Facility:[facility] Start: 07-09-2024 End: 07-09-2024 ambulatory Leticia Bergman VSC Facility:[facility] Start: 06-30-2024 End: 06-30-2024 Emergency department patient visit Leticia Bergman [facility] Facility:[facility] Start: 06-11-2024 ambulatory Leticia Bergman [facility] Fa cility:[facility] Start: 06-11-2024 End: 06-11-2024 Emergency department patient visit Leticia Bergman [facility] Facility:[facility] Start: 03-03-2024 End: 03-03-2024 ambulatory [facility] Work Phone: Start: 03-03-2024 End: 03-03-2024 Patient encounter procedure [facility] Work Phone: Start: 02-22-2024 End: 02-22-2024 Emergency department patient visit [facility] Work Phone: Start: 12-05-2023 End: 12-05-2023 Emergency department patient visit [facility] Work Phone: Start: 12-04-2023 End: 12-04-2023 Emergency department patient visit [facility] Work Phone: Start: 11-17-2023 End: 11-17-2023 Emergency department patient visit [facility] Work Phone: Start: 10-25-2023 End: 10-25-2023 Emergency department patient visit [facility] Work Phone: Start: 09-05-2023 End: 09-05-2023 Emergency department patient visit [facility] Work Phone: Start: 06-06-2023 Emergency department patient visit [facility] Facility:[facility] Start: 06-05-2023 End: 06-05-2023 Emergency department patient visit [facility] Work Phone: Start: 05-17-2023 End: 05-17-2023 Emergency department patient visit [facility] Work Phone: Start: 03-14-2023 ambulatory NAYA GODFREY [facility] Facility:[facility] Start: 01-21-2023 End: 01-21-2023 Emergency department patient visit No Primary Care Physician [facility] Start: 12-14-2022 End: 12-14-2022 Emergency department patient visit No Primary Care Physician [facility] Start: 12-03-2022 End: 12-03-2022 Emergency department patient visit [facility] Facility:[facility] Start: 10-26-2022 End: 10-26-2022 Emergency department patient visit No Primary Care Physician [facility] Start: 10-23-2022 End: 10-23-2022 Patient encounter procedure No Primary Care Physician [facility] Start: 10-07-2022 End: 10-11-2022 Emergency department patient visit PHYSIC[facility] Start: 09-06-2022 End: 09-06-2022 Emergency department patient visit DR SALIMA CONSTANTINO MD Facility:[facility] Start: 09-06-2022 End: 09-06-2022 Emergency department patient visit DR SALIMA CONSTANTINO MD [facility] Start: 08-18-2022 End: 08-18-2022 Emergency department patient visit [facility] Start: 03-30-2019 End: 03-30-2019 [facility] Start: 03-26-2019 End: 03-26-2019 [facility] Start: 02-08-2019 End: 02-08-2019 Emergency department patient visit [facility] Start: 02-04-2019 End: 02-05-2019 Emergency department patient visit [facility] Start: 02-02-2019 End: 02-02-2019 Emergency department patient visit GLEN HAMILTON [facility] Start: 12-22-2018 End: 12-22-2018 Emergency department patient visit MAYCOL CASAS [facility] Start: 10-07-2018 Patient encounter procedure [facility] Start: 10-07-2018 End: 10-07-2018 Office outpatient visit [address] 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 Start: 09-03-2018 End: 09-03-2018 Patient encounter procedure Freddie Tinoco [facility] Start: 09-03-2018 End: 09-08-2018 Evaluation and management of inpatient FREDDIE TINOCO [facility] Start: 09-03-2018 End: 09-03-2018 Emergency department patient visit AMBERLY NATHALIA [facility] Start: 09-03-2018 End: 09-08-2018 Evaluation and management of inpatient Juan Pastor Work Phone: 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) Start: 08-31-2018 End: 08-31-2018 Emergency department patient visit EHSAN JAQUEZ [facility] Start: 08-12-2018 End: 08-12-2018 Emergency department patient visit Jade Oquendo Facility:[facility] Start: 07-31-2018 End: 07-31-2018 Emergency department patient visit BRITTANY Laverne [facility] Start: 07-26-2018 End: 07-26-2018 Emergency department patient visit [facility] Start: 07-23-2018 End: 07-23-2018 Emergency department patient visit [facility] Start: 07-09-2018 End: 07-09-2018 Emergency department patient visit JAGJIT Nain [facility] Start: 06-05-2018 End: 06-05-2018 ambulatory UNKNOWN PROVIDER Facility:[facility] Start: 04-27-2018 End: 04-27-2018 Emergency department patient visit [facility] Start: 03-03-2018 End: 03-03-2018 Patient encounter procedure [facility] Start: 02-27-2018 End: 02-27-2018 Patient encounter Swapnagelacio Izquierdo Facility:[place] Start: 02-19-2018 Patient encounter procedure [facility] [place] [facility] Start: 02-16-2018 End: 02-16-2018 Emergency department patient visit [facility] Start: 02-15-2018 Patient encounter procedure [facility] [place] [facility] Start: 02-12-2018 Patient encounter procedure [facility] [place] [facility] Start: 01-27-2018 End: 01-27-2018 Patient encounter procedure LONA CONSTANTINO [facility] Start: 12-18-2017 End: 12-18-2017 Emergency department patient visit Nirmal Maddox Facility:[place] Start: 11-15-2017 Patient encounter procedure [facility] [place] [facility] Start: 11-15-2017 Patient encounter procedure [facility] [place] [facility] Start: 10-25-2017 End: 10-27-2017 Patient encounter procedure ASCENCION DUBON [facility] Start: 10-15-2017 End: 10-15-2017 [facility] Start: 09-03-2017 End: 09-03-2017 Emergency department patient visit [facility] Start: 08-28-2017 Ambulatory [facility] Start: 05-11-2017 End: 05-11-2017 Emergency department patient visit [facility] Procedures Date Procedure Procedure Detail [...] Blood count complete auto&auto difrntl wbc Dhara L Liyl CARPENTRY TEACHER-PHYSICAL SECURITY MANAGER Work Phone: Start: 02-16-2025 US Abdomen Hanane Malagon MD Work Phone: Start: 02-13-2025 Antibody rubella Elva He MD MPH Work Phone: Start: 02-12-2025 Glucose quantitative blood xcpt reagent strip Jose Guadalupe Gupta MD Work Phone: Start: 02-12-2025 Glucose quantitative blood xcpt reagent strip Clair Jorgensen MD Work Phone: Start: 02-11-2025 Glucose quantitative blood xcpt reagent strip Clair Jorgensen MD Work Phone: Start: 02-11-2025 Glucose quantitative blood xcpt reagent strip Clair Jorgensen MD Work Phone: Start: 02-11-2025 End: 02-11-2025 Glucose quantitative blood xcpt reagent strip Clair Jorgensen MD Work Phone: Start: 02-11-2025 Glucose quantitative blood xcpt reagent strip Clair Jorgensen MD Work Phone: Start: 02-11-2025 Glucose quantitative blood xcpt reagent strip Clair Jorgensen MD Work Phone: Start: 02-11-2025 Glucose quantitative blood xcpt reagent strip Clair Jorgensen MD Work Phone: Start: 02-11-2025 Glucose quantitative blood xcpt reagent strip Clair Jorgensen MD Work Phone: Start: 02-11-2025 Blood typing serologic rh (d) Ramirez Tucker MD Work Phone: Start: 02-11-2025 PREPARE RBC Ramirez Tucker MD Work Phone: Start: 02-10-2025 Glucose quantitative blood xcpt reagent strip Clair Jorgensen MD Work Phone: Start: 02-10-2025 Glucose quantitative blood xcpt reagent strip Clair Jorgensen MD Work Phone: Start: 02-10-2025 Glucose quantitative blood xcpt reagent strip Clair Jorgensen MD Work Phone: Start: 02-10-2025 Glucose quantitative blood xcpt reagent strip Clair Jorgensen MD Work Phone: Start: 02-10-2025 Mra head w/o contrst material Fide Deleon MD Work Phone: Start: 02-09-2025 End: 02-09-2025 Comprehensive metabolic panel Elyssa He MD Work Phone: Start: 02-09-2025 Iaad ia hiv-1 ag w/hiv-1 & hiv-2 antbdy single Elva He MD MPH Work Phone: Start: 02-09-2025 Antibody rubella Elva He MD MPH Work Phone: Start: 02-09-2025 Comprehensive metabolic panel Dhara Bautista CARPENTRY TEACHER-PHYSICAL SECURITY MANAGER Work Phone: Start: 02-08-2025 Cul prsmptv pthgnc organism scrn w/colony estimj Fide Deleon MD Work Phone: Start: 02-08-2025 Glucose quantitative blood xcpt reagent strip Clair Jorgensen MD Work Phone: Start: 02-08-2025 Influenza virus A and B and SARS-CoV-2 (COVID-19) identified in Respiratory specimen by JYOTI with probe detection Fide Deleon MD Work Phone: Start: 02-08-2025 Creatinine other source Dhara Bautista APR N-PHYSICAL SECURITY MANAGER Work Phone: Start: 02-08-2025 Blood typing serologic rh (d) Dhara Bautista CARPENTRY TEACHER-PHYSICAL SECURITY MANAGER Work Phone: Start: 02-08-2025 End: 02-08-2025 Chloride bld Dhara Bautista CARPENTRY TEACHER-CN P Work Phone: Start: 02-08-2025 Iaad ia [...] 01-08-2025 End: 01-08-2025 Comprehensive metabolic panel Vanesa Schmidt CARPENTRY TEACHER-PHYSICAL SECURITY MANAGER Work Phone: Start: 01-08-2025 Urnls dip stick/tablet rgnt non-auto w/o micrscp Vanesa Schmidt CARPENTRY TEACHER-PHYSICAL SECURITY MANAGER Work Phone: Start: 01-01-2025 Us preg uterus [...] biophysical profile w/o non-stress testing Celena Solis CARPENTRY TEACHER-[facility] Work Phone: Start: 12-24-2024 Glucose quantitative blood xcpt reagent strip Earl Colorado MD Work Phone: Start: 12-23-2024 Glucose quantitative blood xcpt reagent strip Earl Colorado MD Work Phone: Start: 12-23-2024 Urnls dip stick/tablet rgnt non-auto w/o micrscp Celena Solis CARPENTRY TEACHER-PHYSICAL SECURITY MANAGER Work Phone: Start: 12-23-2024 Glucose quantitative blood xcpt reagent strip Earl Colorado MD Work Phone: Start: 12-23-2024 Blood typing serologic rh (d) Celnea Solis CARPENTRY TEACHER-PHYSICAL SECURITY MANAGER Work Phone: Start: 12-23-2024 End: 12-23-2024 Comprehensive metabolic panel Celena Solis CARPENTRY TEACHER-PHYSICAL SECURITY MANAGER Work Phone: Start: 12-23-2024 Urnls dip stick/tablet rgnt non-auto w/o micrscp Laney Patricio CARPENTRY TEACHER-PHYSICAL SECURITY MANAGER Work Phone: Start: 12-23-2024 Glucose quantitative blood [...] 03-26-2019 Assay of lactate EHSAN JAQUEZ Start: 05-22-2019 Assay of lipase EHSNA JAQUEZ Start: 03-26-2019 Blood count complete auto&auto [...] Urnls dip stick/tablet rgnt auto w/o microscopy HESAN JAQUEZ Start: 09-14-2018 Assay of amylase EHSAN JAQUEZ Start: 09-14-2018 Assay of lipase EHSAN JAQUEZ Start: 09-14-2018 Blood count complete auto&auto difrntl wbc EHSAN JAQUEZ Start: 09-14-2018 Comprehensive metabolic panel EHSAN JAQUEZ Start: 09-14-2018 CULTURE BLOOD #1 EHSAN JAQUEZ Start: 09-14-2018 Gonadotropin chorionic qualitative EHSAN JAQUEZ Start: 09-14-2018 LACTIC ACID, PLASMA EHSAN JAQUEZ Start: 09-06-2018 End: 09-06-2018 Radiologic exam chest single view Arianne L. Vargas Work Phone: Start: 09-05-2018 End: 09-05-2018 Basic metabolic 1998 panel - Serum or Plasma Arianne Vargas Work Phone: Start: 09-05-2018 End: 09-05-2018 Complete blood count (hemogram) panel - Blood by Automated count Arianne Vargas Work Phone: Start: 09-04-2018 End: 09-04-2018 Complete blood count (hemogram) panel - Blood by Automated count Chase Santana Work Phone: Start: 09-04-2018 End: 09-04-2018 Comprehensive metabolic 2000 panel - Serum or Plasma Chase Santana Work Phone: Start: 09-03-2018 End: 09-03-2018 Clostridium difficile toxin assay Chase Santana Work Phone: Start: 09-03-2018 End: 09-03-2018 Bacteria identified in Blood by Culture Chase Santana Work Phone: Start: 09-03-2018 End: 09-03-2018 Blood gas analysis Stu Leija Work Phone: Start: 09-03-2018 End: 09-03-2018 Lactate [Moles/volume] in Serum or Plasma Joy Capellan Work Phone: Start: 09-03-2018 End: 09-03-2018 Ct abdomen & pelvis w/contrast material Joy Capellan Work Phone: Start: 09-03-2018 End: 09-03-2018 Choriogonadotropin ( test) [Presence] in Urine Joy Capellan Work Phone: Start: 09-03-2018 End: 09-03-2018 Urinalysis Joy Capellan Work Phone: Start: 09-03-2018 End: 09-03-2018 URINE CLEMENT CONTAINER Triage Protocol Renuka rgency Start: 09-03-2018 End: 09-03-2018 Basic metabolic 2000 panel - Serum or Plasma Joykai Vasqueza Work Phone: Start: 09-03-2018 End: 09-03-2018 Complete blood count with white cell differential, automated Joykai Vasqueza Work Phone: Start: 09-03-2018 End: 09-03-2018 Complete blood count with white cell differential, manual Joykai Vasqueza Work Phone: Start: 09-03-2018 End: 09-03-2018 Hepatic function 2000 panel - Serum or Plasma Joy Capellan Work Phone: Start: 09-03-2018 End: 09-03-2018 LIGHT BLUE TOP Triage Protocol Bertha gency Start: 09-03-2018 End: 09-03-2018 LIGHT GREEN TOP Triage Protocol Bertha gency Start: 09-03-2018 End: 09-03-2018 Lipase [Enzymatic activity/volume] in Serum or Plasma Joy Capellan Work Phone: Start: 09-03-2018 End: 09-03-2018 PINK TOP Triage Protocol Bertha gency Start: 09-03-2018 End: 09-03-2018 RAINBOW DRAW Triage Protocol Bertha gency Start: 08-31-2018 Ct abdomen & pelvis w/o contrast material EHSAN LEONID Start: 08-31-2018 Blood count complete auto&auto difrntl [...] MD Work Phone: Start: 07-25-2017 Colonoscopy Joseph Renteria Start: 01-15-2017 History of cholecystectomy History of cholecystectomy Sugey Pride MD Work Phone: SARS-CoV-2 & FLU Ant igen (Rapid) No Primary Care Physician SARS-CoV-2 & FLU Ant igen (Rapid) No Primary Care Physician Plan of Treatment Date Care Activity Detail Author Start: 2064 RSV Immunization for Adults (1 - 1-dose 75+ series) RSV Immunization for Adults (1 - 1-dose 75+ series) [facility] Start: 2039 Zoster Vaccines (1 of 2) Zoster Vaccines (1 of 2) [facility] Start: 2038 Zoster Vaccines (1 of 2) Zoster Vaccines (1 of 2) [facility] Start: 03-05-2030 Lipid panel Lipid Panel [facility] Start: 03-10-2028 Diabetes mellitus screening Diabetes Screening [facility] Start: 03-01-2028 Diabetes mellitus screening Diabetes Screening [facility] Start: 02-13-2028 Diabetes mellitus screening Diabetes Screening [facility] Start: 03-05-2026 Lipid panel Lipid Panel [facility] Start: 07-06-2025 Influenza vaccination [facility] Start: 06-24-2025 End: 06-24-2025 Patient encounter procedure 06/24/2025 1:45 PM EDT Office Visit [facility] [address] [place] [id number] Zoë Santana MD [address] [place] [address] [facility] Start: 06-05-2025 Hemoglobin A1c measurement Diabetes: Hemoglobin A1C [facility] Start: 05-27-2025 End: 05-27-2025 Patient encounter procedure 05/27/2025 8:00 AM EDT Office Visit [facility] [address] [place] [address] Maycol Dykes MD [address] [facility] [place] [address] [facility] Start: 05-26-2025 End: 05-26-2025 Clinical Support 05/26/2025 3:00 PM EDT [facility] [address] [facility] [address] [place] [phone] [facility] Start: 05-13-2025 End: 05-13-2026 Comprehensive metabolic 2000 panel - Serum or Plasma Comprehensive Metabolic Panel Lab Routine Type 2 diabetes mellitus without complication, with long-term current use of insulin Expected: 05/13/2025 (Approximate), Expires: 05/13/2026 [facility] Service Area Work Phone: Comment on above: Expected: 05/13/2025 (Approximate), Expi res: 05/13/2026 Start: 05-13-2025 End: 05-13-2026 Hemoglobin A1c/Hemoglobin.total in Blood Hemoglobin A1C Lab Routine Type 2 diabetes mellitus without complication, with long-term current use of insulin Expected: 05/13/2025 (Approximate), Expires: 05/13/2026 [facility] Work Phone: Comment on above: Expected: 05/13/2025 (Approximate), Expi res: 05/13/2026 Start: 05-13-2025 End: 05-13-2026 Magnesium [Mass/volume] in Serum or Plasma Magnesium Lab Routine Hypomagnesemia Expected: 05/13/2025 (Approximate), Expires: 05/13/2026 [facility] Work Phone: Comment on above: Expected: 05/13/2025 (Approximate), Expi res: 05/13/2026 Start: 05-13-2025 End: 05-13-2026 Microalbumin/Creatinin e [Mass Ratio] in Urine Albumin-Creatinine Ratio, Urine Random Lab Routine Type 2 diabetes mellitus without complication, with long-term current use of insulin Expected: 05/13/2025 (Approximate), Expires: 05/13/2026 [facility] Work Phone: Comment on above: Expected: 05/13/2025 (Approximate), Expi res: 05/13/2026 Start: 03-17-2025 End: 03-17-2025 Patient encounter procedure 03/17/2025 11:15 AM EDT Office Visit [facility] [address] [place] [phone] Zoë Santana MD [address] [place] [address] [facility] Start: 03-12-2025 End: 03-12-2025 Patient encounter procedure 03/12/2025 1:00 PM EDT Office Visit [facility] [address] [facility] [address] [place] [phone] [place] [address] [place], [place] [id number] [facility] Start: 03-03-2025 End: 03-03-2026 CBC W Auto Differential panel - Blood CBC and Auto Differential Lab Routine Fatigue, unspecified type Anemia, unspecified type Expected: 03/03/2025 (Approximate), Expires: 03/03/2026 [facility] Work Phone: Comment on above: Expected: 03/03/2025 (Approximate), Expi res: 03/03/2026 Start: 03-03-2025 End: 03-03-2026 Comprehensive metabolic 2000 panel - Serum or Plasma Comprehensive Metabolic Panel Lab Routine Fatigue, unspecified type Benign essential HTN Weight gain History of gestational diabetes Expected: 03/03/2025 (Approximate), Expires: 03/03/2026 [facility] Service Area Work Phone: Comment on above: Expected: 03/03/2025 (Approximate), Expi res: 03/03/2026 Start: 03-03-2025 End: 03-03-2026 Hemoglobin A1c/Hemoglobin.total in Blood Hemoglobin A1C Lab Routine History of gestational diabetes Expected: 03/03/2025 (Approximate), Expires: 03/03/2026 [facility] Work Phone: Comment on above: Expected: 03/03/2025 (Approximate), Expi res: 03/03/2026 Start: 03-03-2025 End: 03-03-2026 Lipid 1996 panel - Serum or Plasma Lipid Panel Lab Routine Screening for hyperlipidemia Expected: 03/03/2025 (Approximate), Expires: 03/03/2026 [facility] Work Phone: Comment on above: Expected: 03/03/2025 (Approximate), Expi res: 03/03/2026 Start: 03-03-2025 End: 03-03-2026 Magnesium [Mass/volume] in Serum or Plasma Magnesium Lab Routine Fatigue, unspecified type Expected: 03/03/2025 (Approximate), Expires: 03/03/2026 [facility] Work Phone: Comment on above: Expected: 03/03/2025 (Approximate), Expi res: 03/03/2026 Start: 03-03-2025 End: 03-03-2026 TSH with reflex to Free T4 if abnormal TSH with reflex to Free T4 if abnormal Lab Routine Fatigue, unspecified type Weight gain Expected: 03/03/2025 (Approximate), Expires: 03/03/2026 [facility] Work Phone: Comment on above: Expected: 03/03/2025 (Approximate), Expi res: 03/03/2026 Start: 03-03-2025 End: 03-03-2026 Zinc [Mass/volume] in Serum or Plasma Zinc Lab Routine Fatigue, unspecified type Expected: 03/03/2025 (Approximate), Expires: 03/03/2026 [facility] Work Phone: Comment on above: Expected: 03/03/2025 (Approximate), Expi res: 03/03/2026 Start: 03-03-2025 End: 03-03-2025 Patient encounter procedure 03/03/2025 11:30 AM EDT Office Visit [facility] [address] [place] [phone] Zoë Santana MD [address] [place] [address] [facility] Start: 03-02-2025 End: 03-02-2025 Clinical Support [facility] Start: 02-26-2025 End: 02-26-2025 Patient encounter procedure [facility] Start: 02-23-2025 End: 02-23-2025 Clinical Support [facility] Start: 02-20-2025 End: 02-20-2025 Clinical Support 02/20/2025 10:00 AM EDT Clinical Support [facility] [address] [place] [address] [facility] Start: 02-19-2025 End: 02-19-2025 Patient encounter procedure [facility] Start: 02-16-2025 End: 02-16-2025 Clinical Support [facility] Start: 02-12-2025 End: 02-12-2025 [facility] Start: 02-09-2025 End: 02-09-2025 Clinical Support [facility] Start: 02-05-2025 End: 02-05-2025 [facility] Start: 02-02-2025 End: 02-02-2025 Clinical Support [facility] Start: 01-29-2025 End: 01-29-2025 Patient encounter procedure [facility] Start: 01-26-2025 End: 01-26-2025 Clinical Support [facility] Start: 01-22-2025 End: 01-22-2025 Patient encounter procedure [facility] Start: 01-20-2025 End: 01-20-2025 Clinical Support [facility] Start: 01-16-2025 Orders Only 01/16/2025 Orders Only [facility] [address] [phone] [place], [place] [id number] [place] [address] [place] [address] Gestational hypertension, second trimester (HHS-HCC) [facility] 4 Comment on above: Gestational hypertension, second trimest er (HHS-HCC) Start: 01-15-2025 End: 01-15-2025 Patient encounter procedure [facility] Start: 01-09-2025 Orders Only 01/09/2025 Orders Only [facility] 4 [address] [place] [id number] [place] [address] [place] [address] Gestational hypertension, second trimester (HHS-HCC) [facility] 4 Comment on above: Gestational hypertension, second trimest er (HHS-HCC) Start: 01-08-2025 End: 01-08-2026 Creatinine [Mass/volume] in 24 hour Urine Creatinine, 24 Hour Urine Lab Routine Gestational hypertension, second trimester ([facility]) Expected: 01/08/2025 (Approximate), Expires: 01/08/2026 [facility] Work Phone: Comment on above: Expected: 01/08/2025 (Approximate), Expi res: 01/08/2026 Start: 01-08-2025 End: 01-08-2026 Protein [Mass/volume] in 24 hour Urine Protein, Total 24 Hour Urine Lab Routine Gestational hypertension, second trimester ([facility]) Expected: 01/08/2025 (Approximate), Expires: 01/08/2026 [facility] Work Phone: Comment on above: Expected: 01/08/2025 (Approximate), Expi res: 01/08/2026 Start: 01-06-2025 End: 01-06-2025 ambulatory 01/06/2025 1:30 PM EST Initial [facility] [address] [place] [address] [place] [address] [place] [address] [facility] Start: 01-06-2025 End: 01-06-2025 Patient encounter procedure 01/06/2025 12:30 PM EST Appointment [facility] [address] [place] [address] [facility] Start: 01-01-2025 End: 01-01-2025 ambulatory 01/01/2025 1:00 PM EST Initial [facility] [address] [place] [address] [place] [address] [place] [address] Kin [facility] Start: 12-25-2024 End: 12-25-2024 Patient encounter procedure 12/25/2024 11:30 AM EST Routine [facility] [address] [place] [address] [facility] Start: 07-06-2024 COVID-19 Vaccine ( season) COVID-19 Vaccine ( season) [facility] Start: 07-06-2024 Influenza vaccination Influenza Vaccine (#1) [facility] Start: 02-22-2024 [facility] Start: 12-05-2023 [facility] Start: 11-17-2023 [facility] Start: 10-25-2023 [facility] Start: 09-05-2023 [facility] Start: 09-05-2023 Enteric precautions [facility] Start: 06-05-2021 Screening for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 trimester ([facility]) Gestational hypertension, second trimester ([facility]) Hyperglycemia in ([facility]) Crohn's disease with complication, unspecified gastrointestinal tract location Depression affecting in second trimester, antepartum ([facility]) Anxiety during in second trimester, antepartum ([facility]) headache in second trimester ([facility])- Primary Gestational hypertension, second trimester ([facility]) Insulin controlled gestational diabetes mellitus (GDM) in second trimester ([facility]) 27 weeks gestation of ([facility]) Gastroesophageal reflux disease without esophagitis Esophageal reflux Crohn's disease with complication, unspecified gastrointestinal tract location Screening, , for anatomic survey ([facility]) Encounter for anatomic survey Gestational hypertension ([facility]) Unspecified hypertension complicating , childbirth, or the puerperium, unspecified as to episode of care Obesity affecting ([facility]) Gestational diabetes mellitus (GDM) AMA (advanced maternal age) multigravida 35+ ([facility]) documented in this encounter [facility] Work Phone: Evaluation note* Diagnosis 26 weeks gestation of ([facility])- Primary Insulin controlled gestational diabetes mellitus (GDM) in second trimester ([facility]) Gestational hypertension, second trimester ([facility]) Hyperglycemia in ([facility]) Crohn's disease with complication, unspecified gastrointestinal tract location Depression affecting in second trimester, antepartum ([facility]) Anxiety during in second trimester, antepartum ([facility]) headache in second trimester ([facility])- Primary Gestational hypertension, second trimester ([facility]) Insulin controlled gestational diabetes mellitus (GDM) in second trimester ([facility]) 27 weeks gestation of ([facility]) Gastroesophageal reflux disease without esophagitis Esophageal reflux Crohn's disease with complication, unspecified gastrointestinal tract location Screening, , for anatomic survey ([facility]) Encounter for anatomic survey Obesity affecting in third trimester ([facility]) Gestational diabetes mellitus (GDM) requiring insulin ([facility]) Gestational hypertension w/o significant proteinuria in 3rd trimester ([facility]) 28 weeks gestation of ([facility])- Primary Gestational hypertension, second trimester ([facility]) Insulin controlled gestational diabetes mellitus (GDM) in second trimester ([facility]) Anxiety during in second trimester, antepartum ([facility]) History of HELLP syndrome, currently ([facility]) with other poor obstetric history Depression affecting in second trimester, antepartum ([facility]) History of loop electrosurgical excision procedure (LEEP) of cervix affecting in second trimester ([facility]) headache in second trimester ([facility]) Headache in , antepartum ([facility]) psychosis (Multi) Mental disorders of mother, complicating , childbirth, or the puerperium, unspecified as to episode of care documented in this encounter [facility] Work Phone: Evaluation note* Diagnosis 26 weeks gestation of ([facility])- Primary Insulin controlled gestational diabetes mellitus (GDM) in second trimester ([facility]) Gestational hypertension, second trimester ([facility]) Hyperglycemia in ([facility]) Crohn's disease with complication, unspecified gastrointestinal tract location Depression affecting in second trimester, antepartum ([facility]) Anxiety during in second trimester, antepartum ([facility]) headache in second trimester ([facility])- Primary Gestational hypertension, second trimester ([facility]) Insulin controlled gestational diabetes mellitus (GDM) in second trimester ([facility]) 27 weeks gestation of ([facility]) Gastroesophageal reflux disease without esophagitis Esophageal reflux Crohn's disease with complication, unspecified gastrointestinal tract location 28 weeks gestation of ([facility])- Primary Gestational hypertension, second trimester ([facility]) Insulin controlled gestational diabetes mellitus (GDM) in second trimester ([facility]) Anxiety during in second trimester, antepartum ([facility]) History of HELLP syndrome, currently ([facility]) with other poor obstetric history Depression affecting in second trimester, antepartum ([facility]) History of loop electrosurgical excision procedure (LEEP) of cervix affecting in second trimester ([facility] headache in second trimester ([facility]) Headache in , antepartum ([facility]) psychosis (Multi) Mental disorders of mother, complicating , childbirth, or the puerperium, unspecified as to episode of care Gestational hypertension, second trimester ([facility]) Insulin controlled gestational diabetes mellitus (GDM) in third trimester ([facility]) Gestational hypertension w/o significant proteinuria in 3rd trimester ([facility]) Gestational hypertension, third trimester ([facility])- Primary Insulin controlled gestational diabetes mellitus (GDM) in third trimester ([facility]) 29 weeks gestation of ([facility]) Depression affecting in second trimester, antepartum ([facility]) headache in third trimester ([facility]) Polyhydramnios in third trimester complication, single or unspecified fetus ([facility]) documented in this encounter [facility] Work Phone: Evaluation note* Diagnosis 26 weeks gestation of ([facility])- Primary Insulin controlled gestational diabetes mellitus (GDM) in second trimester ([facility]) Gestational hypertension, second trimester ([facility]) Hyperglycemia in ([facility]) Crohn's disease with complication, unspecified gastrointestinal tract location Depression affecting in second trimester, antepartum ([facility]) Anxiety during in second trimester, antepartum ([facility]) headache in second trimester ([facility])- Primary Gestational hypertension, second trimester ([facility]) Insulin controlled gestational diabetes mellitus (GDM) in second trimester ([facility]) 27 weeks gestation of ([facility]) Gastroesophageal reflux disease without esophagitis Esophageal reflux Crohn's disease with complication, unspecified gastrointestinal tract location 28 weeks gestation of ([facility])- Primary Gestational hypertension, second trimester ([facility]) Insulin controlled gestational diabetes mellitus (GDM) in second trimester ([facility]) Anxiety during in second trimester, antepartum ([facility]) History of HELLP syndrome, currently ([facility]) with other poor obstetric history Depression affecting in second trimester, antepartum ([facility]) History of loop electrosurgical excision procedure (LEEP) of cervix affecting in second trimester ([facility] headache in second trimester ([facility]) Headache in , antepartum ([facility]) psychosis (Multi) Mental disorders of mother, complicating , childbirth, or the puerperium, unspecified as to episode of care Gestational hypertension, third trimester ([facility])- Primary Insulin controlled gestational diabetes mellitus (GDM) in third trimester ([facility]) 29 weeks gestation of ([facility]) Depression affecting in second trimester, antepartum ([facility]) headache in third trimester ([facility]) Polyhydramnios in third trimester complication, single or unspecified fetus ([facility]) Gestational hypertension, second trimester ([facility]) Insulin controlled gestational diabetes mellitus (GDM) in third trimester ([facility]) Gestational hypertension, third trimester ([facility])- Primary Insulin controlled gestational diabetes mellitus (GDM) in third trimester ([facility]) Depression affecting in third trimester, antepartum ([facility]) 30 weeks gestation of ([facility]) Polyhydramnios in third trimester complication, single or unspecified fetus ([facility]) History of HELLP syndrome, currently ([facility]) with other poor obstetric history History of loop electrosurgical excision procedure (LEEP) of cervix affecting in second trimester ([facility]) headache in third trimester ([facility]) Insulin controlled gestational diabetes mellitus (GDM) in second trimester ([facility]) documented in this encounter [facility] Work Phone: Evaluation note* Diagnosis 26 weeks gestation of ([facility])- Primary Insulin controlled gestational diabetes mellitus (GDM) in second trimester ([facility]) Gestational hypertension, second trimester ([facility]) Hyperglycemia in ([facility]) Crohn's disease with complication, unspecified gastrointestinal tract location Depression affecting in second trimester, antepartum ([facility]) Anxiety during in second trimester, antepartum headache in second trimester ([facility])- Primary Gestational hypertension, second trimester ([facility]) Insulin controlled gestational diabetes mellitus (GDM) in second trimester ([facility]) 27 weeks gestation of ([facility]) Gastroesophageal reflux disease without esophagitis Esophageal reflux Crohn's disease with complication, unspecified gastrointestinal tract location 28 weeks gestation of ([facility])- Primary Gestational hypertension, second trimester ([facility]) Insulin controlled gestational diabetes mellitus (GDM) in second trimester ([facility]) Anxiety during in second trimester, antepartum History of HELLP syndrome, currently ([facility]) with other poor obstetric history Depression affecting in second trimester, antepartum ([facility]) History of loop electrosurgical excision procedure (LEEP) of cervix affecting in second trimester headache in second trimester ([facility]) Headache in , antepartum ([facility]) psychosis ([facility]) Mental disorders of mother, complicating , childbirth, or the puerperium, unspecified as to episode of care Gestational hypertension, third trimester ([facility])- Primary Insulin controlled gestational diabetes mellitus (GDM) in third trimester ([facility]) 29 weeks gestation of ([facility]) Depression affecting in second trimester, antepartum ([facility]) headache in third trimester ([facility]) Polyhydramnios in third trimester complication, single or unspecified fetus ([facility]) Gestational hypertension, third trimester ([facility])- Primary Insulin controlled gestational diabetes mellitus (GDM) in third trimester ([facility]) Depression affecting in third trimester, antepartum ([facility]) 30 weeks gestation of ([facility]) Polyhydramnios in third trimester complication, single or unspecified fetus ([facility]) History of HELLP syndrome, currently ([facility]) with other poor obstetric history History of loop electrosurgical excision procedure (LEEP) of cervix affecting in second trimester headache in third trimester ([facility]) Insulin controlled gestational diabetes mellitus (GDM) in second trimester ([facility]) Gestational hypertension, second trimester ([facility]) Insulin controlled gestational diabetes mellitus (GDM) in third trimester ([facility]) Gestational hypertension w/o significant proteinuria in 3rd trimester ([facility]) Gestational hypertension, third trimester ([facility])- Primary Insulin controlled gestational diabetes mellitus (GDM) in third trimester ([facility]) 32 weeks gestation of ([facility]) Crohn's disease with complication, unspecified gastrointestinal tract location History of HELLP syndrome, currently ([facility]) with other poor obstetric history Depression affecting in third trimester, antepartum ([facility]) History of loop electrosurgical excision procedure (LEEP) of cervix affecting in second trimester headache in third trimester ([facility]) Polyhydramnios in third trimester complication, single or unspecified fetus ([facility]) documented in this encounter [facility] Work Phone: Evaluation note* Diagnosis 26 weeks gestation of ([facility])- Primary Insulin controlled gestational diabetes mellitus (GDM) in second trimester ([facility]) Gestational hypertension, second trimester ([facility]) Hyperglycemia in ([facility]) Crohn's disease with complication, unspecified gastrointestinal tract location Depression affecting in second trimester, antepartum ([facility]) Anxiety during in second trimester, antepartum headache in second trimester ([facility])- Primary Gestational hypertension, second trimester ([facility]) Insulin controlled gestational diabetes mellitus (GDM) in second trimester ([facility]) 27 weeks gestation of ([facility]) Gastroesophageal reflux disease without esophagitis Esophageal reflux Crohn's disease with complication, unspecified gastrointestinal tract location 28 weeks gestation of ([facility])- Primary Gestational hypertension, second trimester ([facility]) Insulin controlled gestational diabetes mellitus (GDM) in second trimester ([facility]) Anxiety during in second trimester, antepartum History of HELLP syndrome, currently ([facility]) with other poor obstetric history Depression affecting in second trimester, antepartum ([facility]) History of loop electrosurgical excision procedure (LEEP) of cervix affecting in second trimester headache in second trimester ([facility]) Headache in , antepartum ([facility]) psychosis (Multi) Mental disorders of mother, complicating , childbirth, or the puerperium, unspecified as to episode of care Gestational hypertension, third trimester ([facility])- Primary Insulin controlled gestational diabetes mellitus (GDM) in third trimester ([facility]) 29 weeks gestation of ([facility]) Depression affecting in second trimester, antepartum ([facility]) headache in third trimester ([facility]) Polyhydramnios in third trimester complication, single or unspecified fetus ([facility]) Gestational hypertension, third trimester ([facility])- Primary Insulin controlled gestational diabetes mellitus (GDM) in third trimester ([facility]) Depression affecting in third trimester, antepartum ([facility]) 30 weeks gestation of ([facility]) Polyhydramnios in third trimester complication, single or unspecified fetus ([facility]) History of HELLP syndrome, currently ([facility]) with other poor obstetric history History of loop electrosurgical excision procedure (LEEP) of cervix affecting in second trimester headache in third trimester ([facility]) Insulin controlled gestational diabetes mellitus (GDM) in second trimester ([facility]) Gestational hypertension, third trimester ([facility])- Primary Insulin controlled gestational diabetes mellitus (GDM) in third trimester ([facility]) 32 weeks gestation of ([facility]) Crohn's disease with complication, unspecified gastrointestinal tract location History of HELLP syndrome, currently ([facility]) with other poor obstetric history Depression affecting in third trimester, antepartum ([facility]) History of loop electrosurgical excision procedure (LEEP) of cervix affecting in second trimester headache in third trimester ([facility]) Polyhydramnios in third trimester complication, single or unspecified fetus ([facility]) Severe preeclampsia, third trimester ([facility])- Primary Severe preeclampsia, third trimester ([facility]) care following vaginal delivery ([facility]) Depression affecting in third trimester, antepartum ([facility]) Gastroesophageal reflux disease, unspecified whether esophagitis present documented in this encounter [facility] Work Phone: Evaluation note* Diagnosis 26 weeks gestation of ([facility])- Primary Insulin controlled gestational diabetes mellitus (GDM) in second trimester ([facility]) Gestational hypertension, second trimester ([facility]) Hyperglycemia in ([facility]) Crohn's disease with complication, unspecified gastrointestinal tract location Depression affecting in second trimester, antepartum ([facility]) Anxiety during in second trimester, antepartum headache in second trimester ([facility])- Primary Gestational hypertension, second trimester ([facility]) Insulin controlled gestational diabetes mellitus (GDM) in second trimester ([facility]) 27 weeks gestation of ([facility]) Gastroesophageal reflux disease without esophagitis Esophageal reflux Crohn's disease with complication, unspecified gastrointestinal tract location 28 weeks gestation of ([facility])- Primary Gestational hypertension, second trimester ([facility]) Insulin controlled gestational diabetes mellitus (GDM) in second trimester ([facility]) Anxiety during in second trimester, antepartum History of HELLP syndrome, currently ([facility]) with other poor obstetric history Depression affecting in second trimester, antepartum ([facility]) History of loop electrosurgical excision procedure (LEEP) of cervix affecting in second trimester headache in second trimester ([facility]) Headache in , antepartum ([facility]) psychosis (Multi) Mental disorders of mother, complicating , childbirth, or the puerperium, unspecified as to episode of care Gestational hypertension, third trimester ([facility])- Primary Insulin controlled gestational diabetes mellitus (GDM) in third trimester ([facility]) 29 weeks gestation of ([facility]) Depression affecting in second trimester, antepartum ([facility]) headache in third trimester ([facility]) Polyhydramnios in third trimester complication, single or unspecified fetus ([facility]) Gestational hypertension, third trimester ([facility])- Primary Insulin controlled gestational diabetes mellitus (GDM) in third trimester ([facility]) Depression affecting in third trimester, antepartum ([facility]) 30 weeks gestation of ([facility]) Polyhydramnios in third trimester complication, single or unspecified fetus ([facility]) History of HELLP syndrome, currently ([facility]) with other poor obstetric history History of loop electrosurgical excision procedure (LEEP) of cervix affecting in second trimester headache in third trimester ([facility]) Insulin controlled gestational diabetes mellitus (GDM) in second trimester ([facility]) Gestational hypertension, third trimester ([facility])- Primary Insulin controlled gestational diabetes mellitus (GDM) in third trimester ([facility]) 32 weeks gestation of ([facility]) Crohn's disease with complication, unspecified gastrointestinal tract location History of HELLP syndrome, currently ([facility]) with other poor obstetric history Depression affecting in third trimester, antepartum ([facility]) History of loop electrosurgical excision procedure (LEEP) of cervix affecting in second trimester headache in third trimester ([facility]) Polyhydramnios in third trimester complication, single or unspecified fetus ([facility]) Severe preeclampsia, third trimester ([facility])- Primary Insulin controlled gestational diabetes mellitus (GDM) in second trimester ([facility]) documented in this encounter [facility] Work Phone: Evaluation note* Diagnosis 26 weeks gestation of ([facility])- Primary Insulin controlled gestational diabetes mellitus (GDM) in second trimester ([facility]) Gestational hypertension, second trimester ([facility]) Hyperglycemia in ([facility]) Crohn's disease with complication, unspecified gastrointestinal tract location Depression affecting in second trimester, antepartum ([facility]) Anxiety during in second trimester, antepartum headache in second trimester ([facility])- Primary Gestational hypertension, second trimester ([facility]) Insulin controlled gestational diabetes mellitus (GDM) in second trimester ([facility]) 27 weeks gestation of ([facility]) Gastroesophageal reflux disease without esophagitis Esophageal reflux Crohn's disease with complication, unspecified gastrointestinal tract location Gestational hypertension, third trimester ([facility])- Primary Insulin controlled gestational diabetes mellitus (GDM) in third trimester ([facility]) 29 weeks gestation of ([facility]) Depression affecting in second trimester, antepartum ([facility]) headache in third trimester ([facility]) Polyhydramnios in third trimester complication, single or unspecified fetus ([facility]) Gestational hypertension, third trimester ([facility])- Primary Insulin controlled gestational diabetes mellitus (GDM) in third trimester ([facility]) Depression affecting in third trimester, antepartum ([facility]) 30 weeks gestation of ([facility]) Polyhydramnios in third trimester complication, single or unspecified fetus ([facility]) History of HELLP syndrome, currently ([facility]) with other poor obstetric history History of loop electrosurgical excision procedure (LEEP) of cervix affecting in second trimester headache in third trimester ([facility]) Insulin controlled gestational diabetes mellitus (GDM) in second trimester ([facility]) Benign essential HTN- Primary Fatigue, unspecified [...] Anxiety state, unspecified documented in this encounter [facility] Work Phone: Evaluation note* Diagnosis 26 weeks gestation of ([facility])- Primary Insulin controlled gestational diabetes mellitus (GDM) in second trimester ([facility]) Gestational hypertension, second trimester ([facility]) Hyperglycemia in ([facility]) Crohn's disease with complication, unspecified gastrointestinal tract location Depression affecting in second trimester, antepartum ([facility]) Anxiety during in second trimester, antepartum headache in second trimester ([facility])- Primary Gestational hypertension, second trimester ([facility]) Insulin controlled gestational diabetes mellitus (GDM) in second trimester ([facility]) 27 weeks gestation of ([facility]) Gastroesophageal reflux disease without esophagitis Esophageal reflux Crohn's disease with complication, unspecified gastrointestinal tract location Gestational hypertension, third trimester ([facility])- Primary Insulin controlled gestational diabetes mellitus (GDM) in third trimester ([facility]) 29 weeks gestation of ([facility]) Depression affecting in second trimester, antepartum ([facility]) headache in third trimester ([facility]) Polyhydramnios in third trimester complication, single or unspecified fetus ([facility]) Gestational hypertension, third trimester ([facility])- Primary Insulin controlled gestational diabetes mellitus (GDM) in third trimester ([facility]) Depression affecting in third trimester, antepartum ([facility]) 30 weeks gestation of ([facility]) Polyhydramnios in third trimester complication, single or unspecified fetus ([facility]) History of HELLP syndrome, currently ([facility]) with other poor obstetric history History of loop electrosurgical excision procedure (LEEP) of cervix affecting in second trimester headache in third trimester ([facility]) Insulin controlled gestational diabetes mellitus (GDM) in second trimester ([facility]) Encounter for visit- Primary History of gestational diabetes Personal history of other genital system and obstetric disorders Counseling for initiation of control method History of pre-eclampsia Bilateral lower extremity edema documented in this encounter [facility] Work Phone: Evaluation note* Diagnosis 26 weeks gestation of ([facility])- Primary Insulin controlled gestational diabetes mellitus (GDM) in second trimester ([facility]) Gestational hypertension, second trimester ([facility]) Hyperglycemia in ([facility]) Crohn's disease with complication, unspecified gastrointestinal tract location Depression affecting in second trimester, antepartum ([facility]) Anxiety during in second trimester, antepartum headache in second trimester ([facility])- Primary Gestational hypertension, second trimester ([facility]) Insulin controlled gestational diabetes mellitus (GDM) in second trimester ([facility]) 27 weeks gestation of ([facility]) Gastroesophageal reflux disease without esophagitis Esophageal reflux Crohn's disease with complication, unspecified gastrointestinal tract location Gestational hypertension, third trimester ([facility])- Primary Insulin controlled gestational diabetes mellitus (GDM) in third trimester ([facility]) 29 weeks gestation of ([facility]) Depression affecting in second trimester, antepartum ([facility]) headache in third trimester ([facility]) Polyhydramnios in third trimester complication, single or unspecified fetus ([facility]) Gestational hypertension, third trimester ([facility])- Primary Insulin controlled gestational diabetes mellitus (GDM) in third trimester ([facility]) Depression affecting in third trimester, antepartum ([facility]) 30 weeks gestation of ([facility]) Polyhydramnios in third trimester complication, single or unspecified fetus ([facility]) History of HELLP syndrome, currently ([facility]) with other poor obstetric history History of loop electrosurgical excision procedure (LEEP) of cervix affecting in second trimester headache in third trimester ([facility]) Insulin controlled gestational diabetes mellitus (GDM) in second trimester ([facility]) Encounter for visit- Primary History of gestational diabetes Personal history of other genital system and obstetric disorders Counseling for initiation of control method History of pre-eclampsia Bilateral lower extremity edema Type 2 diabetes mellitus without complication, with long-term current use of insulin- Primary Benign essential HTN Other insomnia Healthcare maintenance Hypomagnesemia Disorders of magnesium metabolism documented in this encounter [facility] Work Phone: Hospital Discharge instructions Additional Instructions CT scan negative. Labs are all stable. Hemoglobin 12.6. Monitor symptoms. Follow-up with GI as an outpatient. Return if any worsening symptoms.[facility] Work Phone: Hospital Discharge instructions* Attachments The following attachments cannot be sent through Care Everywhere. * Managing acute pain at home ([place]) * Deciding to breastfeed ([place]) * Gestational diabetes ([place]) [facility] Discharge instructions* Attachments The following attachments cannot be sent through Care Everywhere. * Managing acute pain at home ([place]) * Deciding to breastfeed ([place]) * [facility]ational diabetes ([place]) [facility] [employer] Discharge instructions* Attachments The following attachments cannot be sent through Care Everywhere. * Managing acute pain at home ([place]) * Deciding to breastfeed ([place]) * Gestational diabetes ([place]) [facility] Hospital Discharge instructions* Attachments The following attachments cannot be sent through Care Everywhere. * Managing acute pain at home ([place]) * Deciding to breastfeed ([place]) * Gestational diabetes ([place]) [facility]: [employer] Discharge instructions* Attachments The following attachments cannot be sent through Care Everywhere. * Managing acute pain at home ([place]) * Deciding to breastfeed ([place]) * Gestational diabetes ([place]) [facility]: [employer] Discharge instructions* Attachments The following attachments cannot be sent through Care Everywhere. * Managing acute pain at home ([place]) * Deciding to breastfeed ([place]) * Gestational diabetes ([place]) [facility]: [employer] Discharge instructions* Attachments The following attachments cannot be sent through Care Everywhere. * Managing acute pain at home ([place]) * Deciding to breastfeed ([place]) * Gestational diabetes ([place]) [facility] Work [facility]: [employer] Discharge instructions* Attachments The following attachments cannot be sent through Care Everywhere. * Managing acute pain at home ([place]) * Deciding to breastfeed ([place]) * Gestational diabetes ([place]) [facility] Work Phone: Reason for visit Narrative* Imaging (Routine) - Pending Review Specialty Diagnoses / Procedures Referred By Contac t Referred To Contact Radiology Diagnoses Encounter for follow-up ultrasound of anatomy Gestational diabetes requiring insulin ([facility] AMA (advanced maternal age) multigravida 35+ ([facility] Obesity affecting ([facility]) Procedures US OB follow UP transabdominal approach US biophysical [place] [id number] [place] [address] Phone: tel: fax: Referral ID Status Reason Start Date Expiration Date Visits Requested Visits Authorized [id number] Pending Review Perform Procedure 12/25/2024 12/25/2025 1 1 [facility] Work Phone: Reason for visit Narrative* Imaging (Routine) - Pending Review Specialty Diagnoses / Procedures Referred By Contac t Referred To Contact Radiology Diagnoses Gestational hypertension (HHS-HCC) Obesity affecting (HHS-HCC) Gestational diabetes mellitus (GDM) AMA (advanced maternal age) multigravida 35+ (HHS-HCC) Procedures US OB limited 1+ fetuses [place] [address] [place] [address] Phone: tel: fax: Referral ID Status Reason Start Date Expiration Date Visits Requested Visits Authorized [id number] Pending Review Perform Procedure 12/23/2024 12/23/2025 1 1 [facility] Work Phone: reason for visit Narrative* [...] [place] [address] [place] [address] Phone: tel: fax: Referral ID Status Reason Start Date Expiration Date Visits Requested Visits Authorized [id number] Pending Review Perform Procedure 01/15/2025 01/15/2026 1 1 [facility] Work Phone: reason for visit Narrative* Imaging (Routine) - Pending Review Specialty Diagnoses / Procedures Referred By Contac t Referred To Contact Radiology Diagnoses Insulin controlled gestational diabetes mellitus (GDM) in third trimester (HHS-HCC) Gestational hypertension w/o significant proteinuria in 3rd trimester (HHS-HCC) Procedures US OB limited 1+ fetuses US biophysical profile wo non stress testing Jose Guadalupe Gupta MD [address] [employer]E [place] [place] [address] Phone: tel: fax: Referral ID Status Reason Start Date Expiration Date Visits Requested Visits Authorized [id number] Pending Review Perform Procedure 01/09/2025 01/09/2026 1 1 [facility] Work Phone: Reason for visit Narrative* Imaging (Routine) - Pending Review Specialty Diagnoses / Procedures Referred By Contac t Referred To Contact Radiology Diagnoses Gestational hypertension, second trimester (HHS-HCC) Insulin controlled gestational diabetes mellitus (GDM) in third trimester (HHS-HCC) Procedures US OB limited 1+ fetuses US biophysical profile wo non stress testing Jose Guadalupe Gupta MD [address] [employer] [place] [place] [address] Phone: tel: fax: Referral ID Status Reason Start Date Expiration Date Visits Requested Visits Authorized [id number] Pending Review Perform Procedure 01/09/2025 01/09/2026 1 1 [facility] Work Phone: reason for visit Narrative* [...] testing Jose Guadalupe Gupta MD [address] [employer] [place] [place] [address] Phone: tel: fax: Referral ID Status Reason Start Date Expiration Date Visits Requested Visits Authorized [id number] Pending Review Perform Procedure 01/09/2025 01/09/2026 1 1 [facility] Work Phone: Summary Purpose Family History [...] Will No August 18 4:21pm Power of Hvac Estimator No August 18, 2022 4:21pm Advance Directive Response Recorded Date/ Time Living Will No October 26 10:59am Power of Hvac Estimator No October 26, 2022 10:59am Advance Directive Response Recorded Date/ Time Living Will No December 14 9:19pm Power of Hvac Estimator No December 14, 2022 9:19pm Advance Directive Response Recorded Date/ Time Living Will No January 21, 2023 4:03pm Power of Hvac Estimator No January 21 4:03pm Advance Directive Response Recorded Date/ Time Living Will No June 05, 2023 5:42am Power of Hvac Estimator No June 05 5:42am Advance Directive Response Recorded Date/ Time Living Will No October 25 023 4:32pm Power of Hvac Estimator No October 25, 2023 4:32pm Advance Directive Response Recorded Date/ Time Living Will No November 17 2:59am Power of Hvac Estimator No November 17, 2023 2:59am Advance Directive Response Recorded Date/ Time Living Will No December 05 7:53am Power of Hvac Estimator No December 05, 2023 7:53am Advance Directive Response Recorded Date/ Time Living Will No February 22, 2024 3:50pm Power of Hvac Estimator No February 21 3:50pm Date Activated Date [...] from the original. DISCHARGE SUMMARY Patient: Dayna Avalos Account: [id number] Admitted: 09/03/2018 Discharge Date/Time: No discharge date for patient encounter. Clinical Summary [facility] DISCHARGE SUMMARY Dayna Avalos Admitted: 09/03/2018 Discharge Date: 09/08/18 Clinical Summary [...] Physician(s) Follow Up: Raghu Lindsey MD [address] [facility] [address] [place] [address] Follow up You have been scheduled to followup with LILI Barroso at our [facility] office to discuss UTI prevention for 10/02/18 at 1:45pm. Arrive at 1:15pm. Please bring insurance card and photo ID. Freddie Tinoco PA-C [address] [place] [phone] Schedule an appointment as soon as possible for a visit in 1 week(s) [facility] Hospitalists [address] [place] [address] Follow up call with questions related to [...] of exacerbation. Quality Measures DVT Prophylaxis: lovenox Doll Catheter: no Disposition Discharge Location: Estimated Discharge [...] Laboratory, Radiology, Cardiology and Medications * Alcides Montgomery MD - 09/08/2018 10:20 AM EST Formatting of this note may be different from the original. INFECTIOUS DISEASES DAILY PROGRESS NOTE Patient Name: Dayna Tinsley MR #: [id number] Assessment and Plan: 1. Pyelonephritis - E [...] 5 mg 5 mg Oral Daily Chase Santana MD 5 mg at 09/08/18 0927 benzonatate (TESSALON) capsule 100 mg 100 mg Oral TID PRN Arianne Vargas MD 100 mg at 09/06/18 0841 cefdinir (OMNICEF) capsule 300 mg 300 mg Oral Q12H [facility] Arianne Vargas MD dronabinol (MARINOL) capsule 5 mg 5 mg Oral Q8H PRN Chase Santana MD 5 mg at 09/05/18 1649 DULoxetine (CYMBALTA) DR capsule 60 mg 60 mg Oral Daily Chase Santana MD 60 mg at 09/08/18 0928 enoxaparin (LOVENOX) syringe 40 mg 40 mg Subcutaneous Daily Chase Santana MD 40 mg at 09/08/18 0927 guaiFENesin (ROBITUSSIN) 100 mg/5 mL syrup 200 mg 200 mg Oral Q4H PRN Arianne Vargas MD HYDROcodone-acetaminophen (NORCO) 5-325 mg per tablet 1 tablet 1 tablet Oral Q4H PRN Chase Santana MD 1 tablet at 09/08/18 0510 ipratropium-albuterol (DUO-NEB) 0.5-2.5 mg/3 ml nebulizer solution 3 mL 3 mL Inhalation Q6H [facility] Noa Soria MD 3 mL at 09/08/18 0816 naloxone (NARCAN) injection 0.1 mg 0.1 mg Intravenous PRN Chase Santana MD naloxone (NARCAN) injection 0.4 mg 0.4 mg Intravenous PRN Chase Santana MD prochlorperazine (COMPAZINE) injection 5 mg 5 mg Intravenous Q4H Felecia Atreaga, PHYSICAL SECURITY MANAGER 5 mg at 09/08/18926 QUEtiapine (SEROQUEL) tablet 200 mg 200 mg Oral BID Chase Santana MD 200 mg at 09/08/18926 sodium chloride (PF) (NS) flush 5 mL 5 mL Intravenous PRN Joy Capellan PA-C traZODone (DESYREL) tablet 50 mg 50 mg Oral Nightly PRN Chase Santana MD Lab Results Component Value Date WBC 4.66 09/05/2018 HGB 9.3 (L) 09/05/2018 HCT 30.9 (L) 09/05/2018 MCV 82.4 09/05/2018 PLT 102 (L) 09/05/2018 Lab Results Component Value Date GLUCOSE 99 09/05/2018 CALCIUM 8.6 09/04/2018 NA 136 09/05/2018 K 3.5 09/05/2018 CL 99 09/05/2018 BUN 7 (L) 09/05/2018 CREATININE 1.02 09/05/2018 Cultures: Urine E coli Alcides Montgomery MD; cell ; pager * Arianne Vargas [...] of exacerbation. Quality Measures DVT Prophylaxis: lovenox Doll Catheter: no Disposition Discharge Location: Estimated Discharge [...] Laboratory, Radiology, Cardiology and Medications * Alcides Montgomery MD - 09/07/2018 10:47 AM EDT Formatting of this note may be different from the original. INFECTIOUS DISEASES DAILY PROGRESS NOTE Patient Name: Dayna Tinsley MR #: [id number] Assessment and Plan: 1. Pyelonephritis - E [...] 5 mg 5 mg Oral Daily Chase Santana MD 5 mg at 09/07/18 0932 benzonatate (TESSALON) capsule 100 mg 100 mg Oral TID PRN Arianne Vargas MD 100 mg at 09/06/18 0841 ceFAZolin (ANCEF) IVPB 2 g (premix) 2,000 mg Intravenous Q8H Luisa Vasques [facility],PharmD Stopped at 09/07/18 0631 dronabinol (MARINOL) capsule 5 mg 5 mg Oral Q8H PRN Chase Santana MD 5 mg at 09/05/18 1649 DULoxetine (CYMBALTA) DR capsule 60 mg 60 mg Oral Daily Chase Santana MD 60 mg at 09/07/18 0932 enoxaparin (LOVENOX) syringe 40 mg 40 mg Subcutaneous Daily Chase Santana MD 40 mg at 09/07/18 0746 guaiFENesin (ROBITUSSIN) 100 mg/5 mL syrup 200 mg 200 mg Oral Q4H PRN Arianne Vargas MD HYDROcodone-acetaminophen (NORCO) 5-325 mg per tablet 1 tablet 1 tablet Oral Q4H PRN Chase Santana MD 1 tablet at 09/07/18 0934 ipratropium-albuterol (DUO-NEB) 0.5-2.5 mg/3 ml nebulizer solution 3 mL 3 mL Inhalation Q6H [facility] Noa Jairo Soria MD 3 mL at 09/07/18 0325 ketorolac (TORADOL) injection 30 mg 30 mg Intravenous Q6H PRN Arianne Vargas MD 30 mg at 09/06/18 2331 naloxone (NARCAN) injection 0.1 mg 0.1 mg Intravenous PRN Chase Santana MD naloxone (NARCAN) injection 0.4 mg 0.4 mg Intravenous PRN Chase Santana MD prochlorperazine (COMPAZINE) injection 5 mg 5 mg Intravenous Q4H Felecia Arteaga, PHYSICAL SECURITY MANAGER 5 mg at 09/07/18 0932 QUEtiapine (SEROQUEL) tablet 200 mg 200 mg Oral BID Chase Santana MD 200 mg at 09/07/18 0932 sodium chloride (PF) (NS) flush 5 mL 5 mL Intravenous PRN Joy Capellan PA-C traZODone (DESYREL) tablet 50 mg 50 mg Oral Nightly PRN Chase Santana MD Lab Results Component Value Date WBC 4.66 09/05/2018 HGB 9.3 (L) 09/05/2018 HCT 30.9 (L) 09/05/2018 MCV 82.4 09/05/2018 PLT 102 (L) 09/05/2018 Lab Results Component Value Date GLUCOSE 99 09/05/2018 CALCIUM 8.6 09/04/2018 NA 136 09/05/2018 K 3.5 09/05/2018 CL 99 09/05/2018 BUN 7 (L) 09/05/2018 CREATININE 1.02 09/05/2018 Cultures: Urine E coli Alcides Montgomery MD; cell ; pager * Fabio Banks MD - 09/07/2018 10:29 AM EDT Formatting of this note may be different from the original. DAILY PROGRESS NOTE Patient Name: Dayna Tinsley MR #: [id number] Assessment/Plan: Acute pyelonephritis Assessment & Plan B/L pyelo with no evidence of obstruction or stones on CT Afeb last 24 hours. No UCx results available. No urinary complaints. No surgical intervention required. We will sign off F/u on at our [facility] office to discuss UTI prevention for 10/02/18 [...] Results from last 7 days Lab Units 09/05/1880209/04/1854309/03/18185309/03/18 1016 SODIUM mmol/L 136 132* 132* 129* POTASSIUM mmol/L 3.5 3.8 3.7 4.2 CHLORIDE mmol/L 99 97* -- 94* BUN mg/dL 7* 8 -- 10 CREATININE mg/dL 1.02 1.11* -- 1.19* GLUCOSE mg/dL 99 99 127* 142* CALCIUM mg/dL -- 8.6 -- 9.3 Results from last 7 days Lab Units 09/05/18 0809/04/18 0544 09/03/18185309/03/18 1016 WBC K/mcL 4.66 5.51 -- 12.76* [...] about her keiko and being brought up [employer]. She shared some challenging and difficult circumstances in her immediate family that has led to loss and tragedy. Pt. Visit interrupted by vocera call and I stated I would return to the pt's room shortly RECOMMENDATION: Harry Wynne Staff skip hoist engineer [phone] 09/06/18 1800 Clinical Encounter Type Visit Type Non Crisis Non Crisis Visit Rounding Visited With Patient Visit Length (minutes) 16-30 Referral From Patient Patient Spiritual Assessment Spiritual Assessed Yes Taoism Affiliation Arianne Bates MD - 09/06/2018 3:37 [...] of exacerbation. Quality Measures DVT Prophylaxis: lovenox Doll Catheter: no Disposition Discharge Location: Estimated Discharge [...] PCP f/u instructions on AVS. * Alcides Montgomery MD - 09/06/2018 11:22 AM EDT Formatting of this note may be different from the original. INFECTIOUS DISEASES DAILY PROGRESS NOTE Patient Name: Dayna Tinsley MR #: [id number] Assessment and Plan: 1. Pyelonephritis - E [...] 5 mg 5 mg Oral Daily Chase Santana MD 5 mg at 09/06/18 0841 benzonatate (TESSALON) capsule 100 mg 100 mg Oral TID PRN Arianne Vargas MD 100 mg at 09/06/18 0841 ceFAZolin (ANCEF) IVPB 2 g (premix) 2,000 mg Intravenous Q8H Luisa Vasques [facility],PharmD Stopped at 09/06/18 0552 dronabinol (MARINOL) capsule 5 mg 5 mg Oral Q8H PRN Chase Santana MD 5 mg at 09/05/18 1649 DULoxetine (CYMBALTA) DR capsule 60 mg 60 mg Oral Daily Chase Santana MD 60 mg at 09/06/18 0841 enoxaparin (LOVENOX) syringe 40 mg 40 mg Subcutaneous Daily Chase Santana MD 40 mg at 09/06/18 0741 guaiFENesin (ROBITUSSIN) 100 mg/5 mL syrup 200 mg 200 mg Oral Q4H PRN Arianne Vargas MD HYDROcodone-acetaminophen (NORCO) 5-325 mg per tablet 1 tablet 1 tablet Oral Q4H PRN Chase Santana MD 1 tablet at 09/06/18 1050 ibuprofen [...] 0.1 mg 0.1 mg Intravenous PRN Chase Santana MD naloxone (NARCAN) injection 0.4 mg 0.4 mg Intravenous PRN Chase Santana MD prochlorperazine (COMPAZINE) injection 5 mg 5 mg Intravenous Q4H Felecia Florina Arteaga, [facility] 5 mg at 09/06/18 1050 QUEtiapine (SEROQUEL) tablet 200 mg 200 mg Oral BID Chase Santana MD 200 mg at 09/06/18 0841 scopolamine (TRANSDERM-SCOP) 1 mg over 3 days patch 1 patch 1 patch Transdermal Once Felecia Hafsa [facility] 1 patch at 09/03/182005 sodium chloride (PF) (NS) flush 5 mL 5 mL Intravenous PRN Joy Capellan PA-C traZODone (DESYREL) tablet 50 mg 50 mg Oral Nightly PRN Chase Santana MD Lab Results Component Value Date WBC 4.66 09/05/2018 HGB 9.3 (L) 09/05/2018 HCT 30.9 (L) 09/05/2018 MCV 82.4 09/05/2018 PLT 102 (L) 09/05/2018 Lab Results Component Value Date GLUCOSE 99 09/05/2018 CALCIUM 8.6 09/04/2018 NA 136 09/05/2018 K 3.5 09/05/2018 CL 99 09/05/2018 BUN 7 (L) 09/05/2018 CREATININE 1.02 09/05/2018 Cultures: Urine E coli Alcides J. Montgomery, MD; cell ; pager * Alcides Montgomery MD - 09/05/2018 12:05 PM EDT Formatting of this note may be different from the original. INFECTIOUS DISEASES DAILY PROGRESS NOTE Patient Name: Dayna Tinsley MR #: [id number] Assessment and Plan: 1. Pyelonephritis - E [...] 5 mg 5 mg Oral Daily Chase Santana MD 5 mg at 09/05/18 0809 benzonatate (TESSALON) capsule 100 mg 100 mg Oral TID PRN Arianne Vargas MD ceFAZolin (ANCEF) IVPB 2 g (premix) 2,000 mg Intravenous Q8H Luisa Vasques RP,PharmD 200 mL/hr at 09/05/18 0520 2,000 mg at 09/05/18 0520 dronabinol (MARINOL) capsule 5 mg 5 mg Oral Q8H PRN Chase Santana MD 5 mg at 09/05/18 0838 DULoxetine (CYMBALTA) DR capsule 60 mg 60 mg Oral Daily Chase Santana MD 60 mg at 09/05/18 0809 enoxaparin (LOVENOX) syringe 40 mg 40 mg Subcutaneous Daily Chase Santana MD 40 mg at 09/05/18 0804 guaiFENesin (ROBITUSSIN) 100 mg/5 mL syrup 200 mg 200 mg Oral Q4H PRN Arianne Vargas MD HYDROcodone-acetaminophen (NORCO) 5-325 mg per tablet 1 tablet 1 tablet Oral Q4H PRN Chase Santana MD 1 tablet at 09/05/18 1153 HYDROmorphone [...] 0.1 mg 0.1 mg Intravenous PRN Chase Santana MD naloxone (NARCAN) injection 0.4 mg 0.4 mg Intravenous PRN Chase Santana MD prochlorperazine (COMPAZINE) injection 5 mg 5 mg Intravenous Q4H Felecia Arteaga, PHYSICAL SECURITY MANAGER 5 mg at 09/05/18 1059 QUEtiapine (SEROQUEL) tablet 200 mg 200 mg Oral BID Chase Santana MD 200 mg at 09/05/18 0809 scopolamine (TRANSDERM-SCOP) 1 mg over 3 days patch 1 patch 1 patch Transdermal Once Felecia Peeryra, PHYSICAL SECURITY MANAGER 1 patch at 09/03/182005 sodium chloride (PF) (NS) flush 5 mL 5 mL Intravenous PRN Joy Capellan PA-C traZODone (DESYREL) tablet 50 mg 50 mg Oral Nightly PRN Chase Santana MD Lab Results Component Value Date WBC 5.51 09/04/2018 HGB 9.5 (L) 09/04/2018 HCT 30.7 (L) 09/04/2018 MCV 81.4 09/04/2018 PLT 134 (L) 09/04/2018 Lab Results Component Value Date GLUCOSE 99 09/05/2018 CALCIUM 8.6 09/04/2018 NA 136 09/05/2018 K 3.5 09/05/2018 CL 99 09/05/2018 BUN 7 (L) 09/05/2018 CREATININE 1.02 09/05/2018 Cultures: Urine E coli Alcides Montgomery MD; cell ; pager * Arianne Vargas [...] of exacerbation. Quality Measures DVT Prophylaxis: lovenox Doll Catheter: no Disposition Discharge Location: Estimated Discharge [...] of exacerbation. Quality Measures DVT Prophylaxis: lovenox Doll Catheter: no Disposition Discharge Location: Estimated Discharge [...] facilitated conversation with pt who identifies as Presybeterian and finds strength/meaning/comfort in their restoration tradition. Pt expressed her exhaustion and I left pt to rest. Educated pt on role and availability of pastoral care. No further pastoral care requested. Recommend- Visit w pt and family PRN Rev. Roderick Graham MDiv Resident Brand Advocate, Pastoral Care [facility] * Harriet Bustamante, RN - 09/04/2018 [...] pyelonephritis. ID c/s pending. Urology c/s pending. [facility] will follow for possibledischarge needs. in [...] section and content) DATE CREATED AUTHOR 04/30/2018 [facility] DATE CREATED AUTHOR AUTHOR'S ORGANIZ ATION 05/01/2018 [facility] DATE CREATED AUTHOR AUTHOR'S ORGANIZ ATION 08/24/2018 [facility] DATE CREATED AUTHOR AUTHOR'S ORGANIZ ATION 09/06/2018 [facility] DATE CREATED AUTHOR AUTHOR'S ORGANIZ ATION 10/08/2018 [facility] DATE CREATED AUTHOR AUTHOR'S ORGANIZ ATION 10/12/2018 [facility] DATE CREATED AUTHOR AUTHOR'S ORGANIZ ATION 10/13/2018 [facility] DATE CREATED AUTHOR AUTHOR'S ORGANIZ ATION 02/11/2019 [facility] DATE CREATED AUTHOR AUTHOR'S ORGANIZ ATION 04/09/2019 [facility] DATE CREATED AUTHOR AUTHOR'S ORGANIZ ATION 04/11/2019 [facility] DATE CREATED AUTHOR AUTHOR'S ORGANIZ ATION 04/13/2019 [facility] DATE CREATED AUTHOR AUTHOR'S ORGANIZ ATION 10/24/2021 [facility] DATE CREATED AUTHOR AUTHOR'S ORGANIZ ATION 01/12/2023 [facility] DATE CREATED AUTHOR AUTHOR'S ORGANIZ ATION 03/15/2023 [facility] DATE CREATED AUTHOR AUTHOR'S ORGANIZ ATION 06/07/2023 [facility] DATE CREATED AUTHOR AUTHOR'S ORGANIZ ATION 11/19/2024 [facility] DATE CREATED AUTHOR AUTHOR'S ORGANIZ ATION 12/11/2024 [facility] DATE CREATED AUTHOR AUTHOR'S ORGANIZ ATION 02/26/2025 [facility] DATE CREATED AUTHOR AUTHOR'S ORGANIZ ATION 03/11/2025 [facility] DATE CREATED AUTHOR AUTHOR'S ORGANIZ ATION 05/14/2025 [facility] DATE CREATED AUTHOR AUTHOR'S ORGANIZ ATION 05/15/2025 [facility] DATE CREATED AUTHOR AUTHOR'S ORGANIZ ATION 06/03/2025 [facility] Reason for Visit (unrecogniz ed section and content) Reason Comments Headache Specialty Diagnoses / Procedures Referred By Britta barlow Referred To Contact Diagnoses Hyperglycemia in ([facility]) Procedures Celena Carty, CARPENTRY TEACHER-PHYSICAL SECURITY MANAGER [address] [place] [address] Phone: tel: fax: [facility] [address] [address] [place] [address] Phone: tel: Referral ID Status Reason Start Date Expiration Date Visits Re quested Visits Authorized [id number] 1 1 Reason Comments Nausea Emesis Abdominal [...] walk Specialty Diagnoses / Procedures Referred By Britta barlow Referred To Contact Obstetrics and Gynecology Diagnoses Supervision of high risk , unspecified, unspecified trimester Transfer of care appointment, then if she is high risk she can be referred back to [facility]. Procedures Referral to OBGYN office. [address] [address] Phone: tel: [address] [place] [address] Phone: tel: fax: Referral ID Status Reason Start Date Expiration Date Visits Re quested Visits Authorized [id number] Closed 11/17/2024 05/16/2025 1 1 Reason Comments Hyperglycemia Reason Comments Hypertension Headache Nausea/Vomiting In Specialty Diagnoses / Procedures Referred By Contac t Referred To Contact Diagnoses Hyperglycemia in ([facility]) Procedures Celena Carty, CARPENTRY TEACHER-PHYSICAL SECURITY MANAGER [address] [place] [address] Phone: tel: fax: [facility] [address] [address] [place] [address] Phone: tel: Reason Comments Contractions Hypertension Specialty Diagnoses / Procedures Referred By Contac t Referred To Contact Diagnoses Severe preeclampsia, third trimester ([facility]) Procedures Dhara Harrington, CARPENTRY TEACHER-PHYSICAL SECURITY MANAGER [address] [facility] Department of INSOLE TOE [place] [place] [address] Phone: tel: fax: [facility] 2 Obstetrics and Gynecology [address] [place] [address] Phone: tel: Referral ID Status Reason Start Date Expiration Date Visits Re quested Visits Authorized [id number] 1 1 Reason Comments New Patient Visit NEW PT WANTING BACK ON OZEMPIC Reason Comments Follow-up Patient Grace is here MFM 1. Patient is here for a PPV , No pain , No falls . BS 123 BP 128/77 HR 110 Reason Comments Follow-up 6 week fu (ozempic) having trouble sleeping Chase Santana MD - 09/03/2018 12:58 PM EDT H&P Notes (unrecognized sect ion and content) Formatting of this note may be different from the original. [facility] History and Physical Patient Name: Dayna Tinsley : 1990 MR #: [id number] Admit Date: 10291112 Physicians: Freddie Tinoco PA-C [...] Reconciliation: Verified Quality Measures DVT Prophylaxis: lovenox Doll Catheter: none Chief Complaint: N/V History of [...] 09/03/18 12:58 PM in this encounter Alcides Montgomery MD - 09/04/2018 9:00 AM Raghu Wing MD - 09/04/2018 8:55 AM EDT Consult Notes (unrecognized section and content) Associated Order(s): IP CONSULT TO INFECTIOUS DISEASES Formatting of this note may be different from the original. INFECTIOUS DISEASES CONSULT NOTE Patient Name: Dayna Tinsley Admit Date: 10291112 MR #: [id number] : 1990 Assessment and Plan: 1. Pyelonephritis - E coli from urine from 08/31. Ancef reasonable. May take a few days to defervesce. 2. Crohn's - Per primary. 3. RA - Per primary. Disposition Comments: Monitor on Ancef. Physicians: Freddie Tinoco PA-C (Family); [facility] Chief Complaint/Reason for Visit: sepsis, pyelonephritis, recent [...] 5 mg 5 mg Oral Daily Chase Santana MD Stopped at 09/03/18 1830 ceFAZolin (ANCEF) IVPB 1 g (premix) 1,000 mg Intravenous Q12H Chase Santana MD Stopped at 09/04/18 0313 dronabinol (MARINOL) capsule 5 mg 5 mg Oral Q8H PRN Chase Santana MD 5 mg at 09/04/18 0115 DULoxetine (CYMBALTA) DR capsule 60 mg 60 mg Oral Daily Chase Santana MD Stopped at 09/03/18 1830 enoxaparin (LOVENOX) syringe 40 mg 40 mg Subcutaneous Daily Chase Santana MD 40 mg at 09/04/18 0726 HYDROcodone-acetaminophen (NORCO) 5-325 mg per tablet 1 tablet 1 tablet Oral Q4H PRN Chase Santana MD 1 tablet at 09/03/18 2145 HYDROmorphone (DILAUDID) injection 0.25 mg 0.25 mg Intravenous Q4H PRN Felecia Arteaga CNP 0.25 mg at 09/04/18 0612 ketorolac (TORADOL) injection 30 mg 30 mg Intravenous Q6H PRN Samantha Couch MD 30 mg at 09/04/18 0726 lactated Ringers infusion 150 mL/hr Intravenous Continuous Chase Santana MD 150 mL/hr at 09/04/18 0834 150 mL/hr at 09/04/18 0834 naloxone (NARCAN) injection 0.1 mg 0.1 mg Intravenous PRN Chase Santana MD naloxone (NARCAN) injection 0.4 mg 0.4 mg Intravenous PRN Chase Santana MD prochlorperazine (COMPAZINE) injection 5 mg 5 mg Intravenous Q4H Felecia Arteaga CNP 5 mg at 09/04/18 0617 QUEtiapine (SEROQUEL) tablet 200 mg 200 mg Oral BID Chase Santana MD 200 mg at 09/03/18 2253 scopolamine (TRANSDERM-SCOP) 1 mg over 3 days patch 1 patch 1 patch Transdermal Once Felecia Arteaga CNP 1 patch at 09/03/182005 sodium chloride (PF) (NS) flush 5 mL 5 mL Intravenous PRN Joy Capellan PA-C traZODone (DESYREL) tablet 50 mg 50 mg Oral Nightly PRN Chase Santana MD Review of Systems: The following system(s) [...] in the right hemicolon, suggesting diarrhea. Alcides Montgomery MD; cell ; pager Associated Order(s): IP CONSULT TO UROLOGY Formatting of this note may be different from the original. CONSULT NOTE Patient Name: Dayna Tinsley Admit Date: 10291112 MR #: [id number] : 1990 Physicians: Freddie Tinoco PA-C (Family); [...] Emesis Abdominal Pain History of Present Illness: Danya is a 27-year-old female with a medical [...] denies incontinence. I was consulted by Dr. Santana [facility] the [facility] [facility] service to evaluate the above issue. History: [...] last 7 days Lab Units 09/04/18 0544 09/03/18 1854 09/03/18 1016 SODIUM mmol/L 132* 132* 129* POTASSIUM mmol/L 3.8 3.7 4.2 CHLORIDE mmol/L 97* -- 94* BUN mg/dL 8 -- 10 CREATININE mg/dL 1.11* -- 1.19* GLUCOSE mg/dL 99 127* 142* CALCIUM mg/dL 8.6 -- 9.3 Results from last 7 days Lab Units 09/04/18 0544 09/03/18 18509/03/18 1016 WBC K/mcL 5.51 -- 12.76* HGB [...] RN - 09/08/2018 4:10 PM ESTPlan of Care - Earl Cruz, ROUNDHOUSE FIRER/FIREMAN - 09/06/2018 6:22 AM EDTPlan of Care - Becky Vuong, DOUG - 09/06/2018 3:21 AM EDT Miscellaneous Notes [...] scheduled (RT) Orders: Respiratory Orders Start Ordered 09/05/18 6322 Nasal cannula oxygen Continuous Question: Liters per minute Answer: 3 lts/min, titrate to keep O2 sats >90% 09/05/18 2352 09/05/18 2351 Incentive spirometry Until discontinued 09/05/18 2352 Problem: Infection Goal: Vital signs and blood gases are within patient's accepted norms Outcome: Partially Met Patient SpO2 86-89% on 2L O2, with tachycardia and fever. Notified [facility]. Titrated O2, medicated per JAN. Control temperature [...] will sign off F/u on at our [facility] office to discuss UTI prevention for 10/02/18 at 1:45pm. Arrive at 1:15pm. Details on AVS Patient had scored MEWS of 5. Have notified Rapid Response Nurse. [facility] habilitation assistant is aware of the MEWS score. Patient is here for Sepsis. [facility] has placed an order for PRN Tylenol. Tylenol have been given. Will monitor patient and take vital again in one hour. [facility] SUPPORT [facility] NOTE Called by pt's nurse [...] and a temperature of greater than 102. [facility] physician and Rapid response nurse notified. See orders for physician recommendations. Will continue to monitor. Formatting of this note may be different from the original. ED PROVIDER NOTE [facility] EMERGENCY DEPARTMENT NAME: Dayna Tinsley AGE: 27 y.o. : 1990 VISIT DATE: 09/03/2018 CSN: [id number] PCP: Freddie Tinoco PA-C Chief complaint: Right [...] Yellow Clarity, Urine Cloudy (A) Clear Specific [place] 1.015 1.005 - 1.025 pH, Urine 5.0 [...] right hemicolon, suggesting diarrhea. Workstation ID: [id number] [facility] Medical decision-making: CT demonstrates pyelonephritis. She does [...] Surg w/Cardiac Monitoring [19] Admitting Physician: CHASE SANTANA [[id number]] Diagnosis: Acute pyelonephritis [[id number]] Attending Provider or Group: [facility] [[id number]] Expected Length of Stay in Days: 3 [...] advises she is sending this patient to [facility] ED. Patient with hx of Chrohn's who [...] Physician Member Role: ED Physician Address: Address: [facility] [address] [place] [id number]- Care Teams (unrecognized sec tion and content) Team Status: Active Member Role Status Dates No Primary Care Physician Family Provider Active No Primary Care Physician Primary Care Provider Active Team Status: Inactive Member Role Status Dates No Primary Care Physician Primary Care Provider, Refer ring Provider Active Rodolfo Chopra PA, PA Attending Provider Active Team Status: Inactive [...] Physician Primary Care 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 Garrett Brooks DO Emergency Provider Active Team Status: Active Member Role Status Dates No Primary Care Physician Family Provider Active [facility] Primary Care Provider A ctive Team Status: Inactive Member Role Status Dates [facility] Primary Care Provider A ctive Dr. Major Mejia DO Emergency Provider Active Team Status: Inactive Member Role Status Dates [facility] Primary Care Provider A ctive Dr. Joseph Delgado DO Attending Provider, Emergency P claudy Active Team Status: Inactive Member Role Status Dates [facility] Primary Care Provider A ctive Dr. Garrett Brooks DO Emergency Provider Active Team Status: Inactive Member Role Status Dates [facility] Primary Care Provider A ctive Dr. Agustín Estrada MD Attending Provider, Emergency Pro vider Active Team Status: Inactive Member Role Status Dates [facility] Primary Care Provider A ctive Dr. Garrett Brooks , DO Attending Provider, Emergency Provider Active Team Status: Active Member Role Status Dates No Primary Care Physician Family Provider Active Fahad Blackwellder VSC, NEUROPSYCHOLOGY SERVICE DIRECTOR-C Primary Care Provider Active Team Status: Inactive Member Role Status Dates Dr. Jose Wynn DO Emergency Provider Active Fahad Champagne VSC, NEUROPSYCHOLOGY SERVICE DIRECTOR-C Primary Care Provider Active Team Status: Inactive Member Role Status Dates Dr. Jose Wynn DO Attending Provider, Emergency Pro vider Active Fahad Champagne VSC, NEUROPSYCHOLOGY SERVICE DIRECTOR-C Primary Care Provider Active Team Status: Inactive Member Role Status Dates Fahad Blackwellder VSC, NEUROPSYCHOLOGY SERVICE DIRECTOR-C Primary Care Provider Active Ed Physician Provider Emergency Provider Active Team Status: Inactive Member Role Status Dates Fahad Blackwellder VSC, NEUROPSYCHOLOGY SERVICE DIRECTOR-C Primary Care 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 Jose Wynn DO Emergency Provider Active Team Status: Inactive Member Role Status Dates Fahad Blackwellder VSC, NEUROPSYCHOLOGY SERVICE DIRECTOR-C Primary Care 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 Jose Wynn DO Attending Provider, Emergency Pro vider Active Team Status: Inactive Member Role Status Dates Fahad Blackwellder VSC, NEUROPSYCHOLOGY SERVICE DIRECTOR-C Primary Care Provider Active Ed Physician Provider Attending Provider, Emergency Pr ovider Active Team Status: Inactive Member Role Status Dates Fahad Blackwellder VSC, NEUROPSYCHOLOGY SERVICE DIRECTOR-C Primary Care Provider Active Nito Nur MD Emergency Provider Active Team Status: Inactive Member Role Status Dates Fahad Blackwellder VSC, NEUROPSYCHOLOGY SERVICE DIRECTOR-C Primary Care Provider Active Nito Nur MD Attending Provider, Emergency Provid er Active Team Status: Inactive Member Role Status Dates Fahad Blackwellder VSC, NEUROPSYCHOLOGY SERVICE DIRECTOR-C Primary Care 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 Jagjit Ortega MD Attending Provider, Suzy loco Active Fudge Candy Maker Relationship Specialty Start Date End Date Generic Provider, [place] [address] PCP - General Fiber Optics Engineer 01/20/25 Fudge Candy Maker Relationship Specialty Start Date End Date Generic Provider, No [place] [address] PCP - General Fiber Optics Engineer 01/20/25 Fudge Candy Maker Relationship Specialty Start Date End Date Generic Provider, No [place] [address] PCP - General Fiber Optics Engineer 01/20/25 Fudge Candy Maker Relationship Specialty Start Date End Date Generic Provider, No Assigned [place] [address] PCP - General Fiber Optics Engineer 01/20/25 [place] [address] [place] [address] Clothing Designer Maternal and Medicine 02/15/25 Fudge Candy Maker Relationship Specialty Start Date End Date Generic Provider, No Assigned [facility]ONE [facility] [address] PCP - General Fiber Optics Engineer 01/20/25 [place] [address] [place] [address] Clothing Designer Maternal and Medicine 02/15/25 Fudge Candy Maker Relationship Specialty Start Date End Date Generic Provider, No Assigned MD [place] [address] PCP - General Fiber Optics Engineer 01/20/25 [place] [address] [place] [address] Clothing Designer Maternal and Medicine 02/15/25 Fudge Candy Maker Relationship Specialty Start Date End Date Generic Provider, No Assigned [place] [address] PCP - General Fiber Optics Engineer 01/20/25 [place] [address] [place] [address] Clothing Designer Maternal and Medicine 02/15/25 Fudge Candy Maker Relationship Specialty Start Date End Date Zoë Satnana MD [address] [place] [address] PCP - General Internal Medicine 03/16/25 [place] [address] [place] [address] Clothing Designer Maternal and Medicine 02/15/25 Scheduled Active and Recently Administ ered Medications (unrecognized section and content) Medication Order 12/23/2024 12/24/2024 12/25/2024 aspirin EC tablet 81 mg 81 mg, oral, Daily, First dose on Sun12/23/24 at 1915, Do not crush, chew, or split. 191 (Canceled Entry - Provider: Gregory Harrell RN) 0853 (Given - Provider: Chanel Allen, DOUG) 0831 (Given - Provider: Lexis Quintana, RN) diphenhydrAMINE (BENADryl) injection 25 mg (COMPLETED) [...] meal times) 0952 (Given - Provider: Lexis Quintana, RN)1226 (Given - Provider: Lexis Quintana, RN)1600 (Due) insulin NPH (Isophane) (HumuLIN N,NovoLIN N) injection 20 Units (CANCELED) 20 Units, subcutaneous, Every 12 hours scheduled, First dose (after last modification) on Sun12/23/24 at 1900, Long-acting insulin should be given regardless of PO intake. Consider dose reduction if concerned for NPO or glucose trending less than 100 mg/dL. 183 (Given - Provider: Brianna Deluna, DOUG) 0853 (Given - Provider: Chanel Allen RN) insulin NPH (Isophane) (HumuLIN N,NovoLIN N) injection 20 Units 20 Units, subcutaneous, Every 24 hours scheduled, First dose on Sun12/25/24 at 0700 0822 (Given - Provider: Lexis Quintana, DOUG) insulin NPH (Isophane) (HumuLIN N,NovoLIN N) injection [...] preference? Yes 1256 (Given - Provider: Elyssa Pastor, DOUG)1911 (Given - Provider: Chanel Allen RN) caffeine tablet 100 mg 100 mg, oral, Every 4 hours PRN, headaches, Starting on Sun12/24/24 at 1905, Dose = mg of caffeine. (Order only half the usual caffeine citrate or caffeine-sodium benzoate dose) dextrose 50 % injection 12.5 g 12.5 g, intravenous, Every 15 min PRN, For blood glucose 41 to 70 mg/dL, Starting on Sun12/23/24 at 181, May repeat until blood glucose level reaches [...] no IV access, Starting on Sun12/23/24 at 181, Give until blood glucose is 100 mg/dL [...] hours PRN, nausea/vomiting, first line, Starting on 12/23/24 at 1741 polyethylene glycol (Glycolax, Miralax) packet [...] hours PRN, nausea/vomiting, first line, Starting on 12/23/24 at 1741 Or ondansetron (Zofran) injection 4 mgJump to med 4 mg, intravenous, Every 6 hours PRN, nausea/vomiting, first line, Starting on 12/23/24 at 1741, Give IV if patient is [...] pain scores based on patient preference? Yes 1751 (Given - Provid er: Juany Espana RN) diphenhydrAMINE (BENADryl) injection 25 mg (COMPLETED)(Linked Group 1) 25 mg, intravenous, Administer over 2 Minutes, Once, On Sis 01/08/25 at 1630, For 1 dose, Give IV if patient unable to take orally. 1750 (Given - Provid er: Juany Espana RN) [...] PRN, nausea/vomiting, first line, Starting on Sis 3 at 1605 Or ondansetron (Zofran) injection 4 [...] pain scores based on patient preference? Yes 3104 (Given - Provid er: Mary Jo Allen [...] pain scores based on patient preference? Yes 0551 (Given - Provider: Domingo Ortega RN - Comment: per pt request)1214 (Given - Provider: Afshan Chino RN)1819 (Given - Provider: Lexii Liz RN)2337 (Given - Provider: Lily Babcock RN) 0636 (Given - Provider: Lily Babcock RN)1249 (Given - Provider: Myriam Damian, DOUG)2054 (Given - Provider: Lexii Diane, DOUG) 0512 (Given - Provider: Lexii Diane RN - Comment: pt request)1100 (Due - Provider: Ascencion Ramirez, PharmD)1700 (Due - Provider: Ascencion Ramirez, PharmD)2300 (Due - Provider: Ascencion Ramirez, PharmD) docusate sodium (Colace) capsule 100 mg 100 mg, oral, 2 times daily, First dose on Sun02/13/25 at 1245 1446 (Not Given - Provider: Afshan Chino RN - Reason: Patient not available)2155 (Not Given - Provider: Lily Babcock RN - Reason: Patient/family refused) 0818 (Not Given - Provider: Myriam Damian RN - Reason: Patient/family refused)2053 (Not Given - Provider: Lexii Diane RN - Reason: Patient/family refused) 1046 (Not Given - Provider: Myriam Damian RN - Reason: Order parameters not met - Comment: patient has diarrhea)2099 (Due) doxepin (SINEquan) capsule 75 mg 75 mg, oral, Nightly, First dose on Sun02/09/25 at 2100 2154 (Given - Provider: Lily Babcock RN) 2053 (Given - Provider: Lexii Diane RN) 2099 (Due) hydrOXYzine HCL (Atarax) tablet 50 mg [...] Automatic Transfer Provider - Reason: Unreviewed Transfer Orders)185 (MAR Unhold - Provider: Suzette Galindo MD) 0801 (Medication Applied - Provider: Myriam Damian RN - Comment: BACK)2000 (Due: Medication Removed - Provider: Myriam Damian RN) 1025 (Medication Applied - Provider: Myriam Damian RN - Comment: back)2224 (Due: Medication Removed - Provider: Myriam Damian RN) NIFEdipine ER (Adalat CC) 24 hr tablet 30 mg 30 mg, oral, Nightly, First dose on Sun02/14/25 at 0045, Give on an empty stomach. Do not crush, chew, or split. 0150 (Given - Provider: Lily Babcock RN)2054 (Given - Provider: Lexii Diane RN) 2100 (Due) NIFEdipine ER (Adalat CC) 24 hr tablet 60 mg 60 mg, oral, Daily before breakfast, First dose (after last modification) on Sun02/13/25 at 0700, Give on an empty stomach. Do not crush, chew, or split. 0645 (Given - Provider: Domingo Ortega RN)1154 (MAR Hold - Provider: Automatic Transfer Provider - Reason: Unreviewed Transfer Orders)185 (MAR Unhold - Provider: Suzette Galindo MD) 0637 (Given - Provider: Lily Babcock, RN) 0638 (Given - Provider: Lexii Diane, DOUG) oxytocin (Pitocin) bolus from bag 600 monty-units/min (600 mL/hr), intravenous, Administer over 30 Minutes, Once, On Sun02/13/25 at 0545, For 1 dose, Conditional order. 600 milliunits/min x 30 min, then 60 milliunits/min for the remainder of the bag. Consult Provider prior to administration. 0559 (Canceled Entry - Provider: Domingo Ortega, DOUG) pantoprazole (ProtoNix) EC tablet 40 mg 40 mg, oral, Daily before breakfast, First dose on Sun02/09/25 at 0700, Do not crush, chew, or split. 0645 (Given - Provider: Domingo Ortega RN) 0636 (Given - Provider: Lily Babcock RN) 0638 (Given - Provider: Lexii Diane, DOUG) Continuous Medication Order 02/13/2025 02/14/2025 02/15/2025 lactated Ringer's infusion () 75 mL/hr, intravenous, Continuous, Starting on Sun02/12/25 at 1530, For 1 day 0430 (New Bag - Provider: Domingo Ortega, DOUG)1131 (Stopped - Provider: Gracie Hooks RN) magnesium sulfate 20 gram/500 mL (4 %) infusion 2 g/hr (50 mL/hr), intravenous, Continuous, Starting on Sun02/09/25 at 1700, Monitor blood pressure, pulse, respirations and pulse oximetry every 15 minutes first hour of Magnesium Sulfate administration, then every hour. Monitor for signs and symptoms of magnesium toxicity including: TREASURY AGENT depression, diminished DTRs, increasing muscle weakness, respirations [...] Orders)1857 (JAN Unhold - Provider: Suzette Galindo MD)2154 (Given - Provider: Lily Babcock RN) 1506 (Given - Provider: Myriam Damian RN) diphenhydrAMINE (BENADryl) capsule 25 mg(Linked Group 1) 25 mg, oral, Every 6 hours PRN, itching, Starting on Sun02/13/25 at 0517 2317 (See Alternative - Provider: Lily Babcock RN) 1632 (Not Given - Provider: Myriam Damian RN - Reason: Other - Comment: patient asleep)2154 (See Alternative - Provider: Lexii Diane RN) diphenhydrAMINE (BENADryl) injection 25 mg(Linked Group 1) 25 mg, intravenous, Administer over 2 Minutes, Every 6 hours PRN, itching, Starting on Sun02/13/25 at 0517 2317 (Given - Provider: Lily Babcock RN) 1632 (See Alternative - Provider: Myriam Damian RN)2154 [...] prior to administration, Tranexamic Acid Indication: 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 Scheduled Medication Order 02/14/2025 02/15/202502/16/2025 acetaminophen (Tylenol) tablet 975 mg (COMPLETED) 975 [...] hours PRN, nausea/vomiting, first line, Starting on 02/16/25 at 1417, Use oral route first, if possible. Linked Groups Order Group 1: ondansetron (Zofran) tablet 4 mgJump to med 4 mg, oral, Every 6 hours PRN, nausea/vomiting, first line, Starting on 02/16/25 at 1417, Use oral route first, if possible. Or ondansetron (Zofran) injection 4 mgJump to med 4 mg, intravenous, Every 6 hours PRN, nausea/vomiting, first line, Starting on 02/16/25 at 1417, Give IV if patient is unable to take orally. When administering via IV Push, administer over 3-5 minutes. Scheduled Medication Order 02/27/2025 02/28/2025 03/01/2025 furosemide (Lasix) tablet 40 mg (COMPLETED) 40 mg, oral, Once, On Sun03/01/25 at 1800, For 1 dose 1751 (Given [...] BE BASED ON THE PRIMARY CLINICAL RECORDS. [employer] provides no warranty or guarantee of the accuracy or completeness of information in this document.
--- NOTE | 2025-06-04 01:59 | CT_ITS ---
PROCEDURE: ABDOMEN/PELVIS W IV CONT ONLY 06/04/2025 REASON FOR EXAM: ABD PAIN, HX OF CROHN'S TECHNIQUE: ABDOMEN/PELVIS W IV CONT ONLY Coronal and Sagittal reconstruction series were provided. CONTRAST: Isovue 370 VOLUME: 98 mL One or more dose reduction techniques were used (e.g., Automated exposure control, adjustment of the mA and/or kV according to patient size, use of iterative reconstruction technique. RADIATION DOSE SUMMARY: CTDlvol: 31 mGy DLP: 1305 mGycm COMPARISON: 02/22/2024 FINDINGS: Slight under aeration of the lung bases. Normal heart size. Status post cholecystectomy. Unremarkable liver, pancreas, spleen, adrenal glands, kidneys. No hydronephrosis. Normal bladder. Normal uterus and right ovary. 3.8 cm left ovarian cyst likely a dominant follicle. No retroperitoneal or pelvic adenopathy. No free air. Nondistended bowel. Normal appendix. No acute large bowel findings. No acute abdominal wall findings. CT/Abdomen/Pelvis W IV Cont ONLY IMPRESSION: No acute findings. Reading Location: [place] [address]
[2025-06-04] MEDS: 0.9% Normal Saline (1000mL) 1,000 ML 999 ML IV (02:10)
[2025-06-04 02:13] LABS: Hematocrit 36.4 % (37-47); Hemoglobin 11.8 g/dL (12.0-15.0); Immature Granulocytes Count 0.030 X10^3/uL (0.0-0.0); Mean Corp Hgb Conc 32.4 g/dL (32-36); Mean Corpuscular Volume 78.8 fL (81-99); Mean Platelet Vol. 10.3 fl (6.2-12.0); NRBC Flagged by Analyzer 0 % (0-5); Platelet Count 283 K/mm3 (150-450); RBC Distribution Width CV 15.8 % (11.6-14.6); RBC Distribution Width SD 44.4 fl (35.1-43.9); Red Blood Count 4.62 M/mm3 (4.2-5.4); White Blood Count 9.5 K/mm3 (4.4-11.0)
--- NOTE | 2025-06-04 02:15 | EX.ED.DYSGE1 ---
HPI History of Present Illness Chief Complaint: Nausea/Vomiting Informant: patient Narrative Narrative: Patient is a 33 year old female with history of Crohn's disease (not on any medication and states she has been well-controlled for the past 10 years and her last flare was 2 years ago), PTSD, diabetes mellitus, anxiety and depression presenting with abdominal pain, chills, sweating, nausea, vomiting and burping as well as constipation. States has been having symptoms for about 2 days. She notes her last bowel movement was 3 days ago and she has not been passing gas recently. She is having worsening pain in her lower abdomen. She states she has been belching if she tries. She has been having vomiting and last threw up around 12:30 AM. Came from work for further evaluation. Denies any obvious blood or melena in her stool but notes that last time she had a bowel movement there were small black nuggets. States that she is 4 months . Is on Depo shot. Is not concerned for . Denies any urinary or symptoms. [facility] Medical History Anxiety Depression Type 2 diabetes mellitus Hx of mastitis Congenital heart defect Endometriosis Crohn's disease Home Medications ?Medication ?Instructions ?Recorded ?Last Taken ?Type acetaminophen 500 mg capsule 500 mg PO Q6H PRN pain 04/12/24 04/12/24 History loperamide 2 mg capsule 2 mg PO PRN 04/12/24 Unknown History famotidine 20 mg tablet (Pepcid) 20 mg PO DAILY #30 tabs 09/02/24 Unknown Rx flash glucose scanning reader #1 ea 12/19/24 Unknown Rx (FreeStyle Javon 2 Andrew) flash glucose sensor (FreeStyle #1 ea 12/19/24 Unknown Rx Javon 2 Sensor kit) blood sugar diagnostic (True #100 ea 12/22/24 Unknown Rx Metrix Glucose Test Strip) blood sugar diagnostic (True #100 ea 12/22/24 Unknown Rx Metrix Glucose Test Strip) lancets #200 ea 12/22/24 Unknown Rx lancets 30 gauge (Droplet Lancets) #200 ea 12/22/24 Unknown Rx diazepam 2 mg tablet 2 mg PO TID PRN ptsd #20 tabs 04/30/25 Unknown Rx doxepin 75 mg capsule 75 mg PO DAILY PRN sleep #90 caps 04/30/25 Unknown Rx hydroxyzine HCl 50 mg tablet 50 mg PO BID PRN anxiety #180 tabs 04/30/25 Unknown Rx quetiapine 25 mg tablet 25 mg PO QHS #30 tabs 05/14/25 Unknown Rx promethazine 25 mg tablet 25 mg PO TID PRN nausea and 05/20/25 Unknown Rx vomiting #21 tabs modafinil 200 mg tablet 200 mg PO DAILY #30 tabs 06/02/25 Unknown Rx famotidine 20 mg tablet 20 mg PO BID #28 TABLETS 06/04/25 Unknown Rx hyoscyamine sulfate 0.125 mg 0.125 mg PO Q8H PRN dyspepsia #20 06/04/25 Unknown Rx tablet (Levsin) tabs insulin glargine 100 unit/mL (3 40 unit subcut BID 06/04/25 Unknown History mL) subcutaneous pen (Lantus Solostar U-100 Insulin) insulin glargine-yfgn 100 unit/mL 40 unit subcut BID 06/04/25 Unknown History (3 mL) subcutaneous pen insulin lispro 100 unit/mL 15 unit subcut TID 06/04/25 Unknown History subcutaneous pen lisinopril 2.5 mg tablet 2.5 mg PO DAILY 06/04/25 Unknown History semaglutide 0.25 mg or 0.5 mg (2 0.5 mg subcut QWEEK 06/04/25 Unknown History mg/3 mL) subcutaneous pen injector (Ozempic) spironolactone 50 mg tablet 50 mg PO DAILY 06/04/25 Unknown History trazodone 50 mg tablet 50 mg PO QHS 06/04/25 Unknown History Allergy/AdvReac Type Severity Reaction Status Date / Time methylprednisolone (From Allergy Severe Anaphylaxis Verified 06/04/25 01:18 Solu-Medrol) midazolam (From Versed) Allergy Unknown Other Verified 06/04/25 01:18 benzocaine (From Cetacaine) Allergy Anaphylaxis Verified 06/04/25 01:18 butamben (From Cetacaine) Allergy Anaphylaxis Verified 06/04/25 01:18 methylprednisolone sodium Allergy Anaphylaxis Verified 06/04/25 01:18 succinate (From Solu-Medrol) metoclopramide (From Reglan) Allergy Other Verified 06/04/25 01:18 sertraline Allergy Other Verified 06/04/25 01:18 tetracaine (From Cetacaine) Allergy Anaphylaxis Verified 06/04/25 01:18 midazolam HCl (From Versed) AdvReac Other Verified 06/04/25 01:18 Family History Grandmother Breast cancer, Onset Age: 37 Paternal Aunt Breast cancer, Onset Age: 36 Paternal Aunt Breast cancer Maternal Grandmother Breast cancer, Onset Age: 80 Maternal Surgical History Hx of myringotomy History of colon resection H/O dilation and curettage H/O resection of small bowel History of cholecystectomy Hx LEEP (loop electrosurgical excision procedure), cervix, Social History adopted: No 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al status: employed 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al exposures/hazards: Yes pets and animals: Yes pets and animals: dog(s) history of recent travel: Yes ([place], [place]) out of state: Yes out of country: No sexually active: Yes Smoking Status: Light Smoker (<10/day) quit status: considering quitting alcohol intake: never substance use type: does not use diet: other well-balanced diet: about half the time caffeine: Yes Type: carbonated beverages Number of servings: 2 eating out: 4 or more times/week during the past year weight has: decreased > 10 lbs what type of physical activity do you participate in: weight training frequency: 1-2 times per week duration: < 15 minutes/day keiko/rastafarian: Sikh seatbelt use: always do you feel safe at home: Yes additional social history: FOB is Donor ROS ROS ED Constitutional Constitutional ED: Reports fever(s) and subjective ENT ENT ED: Denies sore throat Cardiovascular Cardiovascular: Denies chest pain Respiratory/Chest Respiratory/Chest: Denies cough or dyspnea Gastrointestinal Gastrointestinal: Reports abdominal pain, constipation and nausea; Denies melena or vomiting Genitourinary Genitourinary ED: Denies dysuria or hematuria Musculoskeletal Musculoskeletal: Denies arthralgias or myalgias Integumentary Denies rash Neurologic Neurologic: Reports weakness Hematologic/Lymphatic Hematologic/Lymphatic: Denies easy bleeding or easy bruising EXAM Physical Exam Const Vital Signs: 06/04/25 01:18 06/04/25 01:21 06/04/25 03:59 Temperature 99.1 F 99.1 F 97.4 F L Temperature Source Oral Oral Pulse Rate 88 71 72 Respiratory Rate 18 12 16 Blood Pressure 155/72 H 155/72 H 100/43 L Blood Pressure Mean 99 99 62 Pulse Ox 98 99 98 Oxygen Delivery Method Room Air Room Air Positive well nourished and well developed General Appearance ED: well developed and NAD HEENT Reports moist mucous membranes Eyes General Eye ED: Negative for pale conjunctiva Neck supple Chest Wall inspection of chest normal Resp normal respiratory effort and clear to auscultation bilaterally Cardio regular rate and regular rhythm GI non-distended Auscultation: normoactive bowel sounds Palpation: soft and tender other (Lower abdomen relatively diffusely) Extremity normal to inspection General Extremety ED: Negative for edema General Extremity: Negative for edema Neuro oriented x3 Sensorium / Orientation: alert Motor Exam: Negative for general weakness Psych mental status grossly normal Skin no rashes or lesions noted and no wounds MDM MDM MDM Narrative Medical decision making narrative: Patient evaluated for constipation, nausea, belching and lower abdominal pain. Does have history of Crohn's disease. Differential includes small bowel obstruction, Crohn's flare, colitis, GERD, peptic ulcer disease, electrolyte derangement, SHARMAINE, urinary tract infection and renal colic. Patient is given 1 mg Dilaudid (she states Dilaudid works better than morphine for her) and 8 mg IV Zofran (she states she usually requires a higher dose of this) for pain control. Given IV fluids. CBC shows mild anemia with a hemoglobin 11.8 which appears stable entheses hemoglobin 12.42 weeks ago). It is microcytic. No leukocytosis present. CMP shows mildly low bicarb of 19 (patient was given IV fluids) but she has normal anion gap and normal kidney function. No electrolyte derangement. Normal liver enzymes. Urinalysis does show 15 protein but otherwise Nexis with infection. Urine is negative. CT of the abdomen pelvis does not show any acute process and specifically does not show any signs of Crohn's flare. Patient is given IV Toradol she states she is having further pain. Will reevaluate. States she can be discharged home with nausea medication, will discuss if she would like to try Bentyl for pain control and follow-up with GI outpatient as she currently is established with GI. Patient states Bentyl is not been very helpful in the past. Will attempt Levsin. Is given dose the emergency room. Discharged home in stable condition. She has nausea medicine at home (Phenergan suppositories). I will also represcribe her pantoprazole as she ran out of that. Lab Data Attestation: I reviewed the patient's lab results. Labs: Laboratory Results - last 24 hr 06/04/25 06/04/25 01:27 02:11 WBC 9.5 RBC 4.62 Hgb 11.8 L Hct 36.4 L MCV 78.8 L MCH 25.5 L MCHC 32.4 RDW Std Deviation 44.4 H RDW Coeff of Silke 15.8 H Plt Count 283 MPV 10.3 Immature Gran % (Auto) 0.300 Neut % (Auto) 64.9 Lymph % (Auto) 28.6 [place] % (Auto) 5.7 Eos % (Auto) 0.0 Baso % (Auto) 0.5 Absolute Neuts (auto) 6.2 Absolute Lymphs (auto) 2.71 Nucleated RBC % 0 Sodium 139 Potassium 3.7 Chloride 107 Carbon Dioxide 19.0 L Anion Gap 13 BUN 9 Creatinine 0.77 Estim Creat Clear Calc 145.30 Est GFR (MDRD) Non-Af 104 BUN/Creatinine Ratio 12.3 Glucose 107 H Calcium 9.0 Total Bilirubin 0.53 AST 22 ALT 24 Alkaline Phosphatase 99 Total Protein 7.3 Albumin 4.1 Globulin 3.2 Albumin/Globulin Ratio 1.3 Urine Color Yellow Urine Clarity Clear Urine pH 6.0 Ur Specific [place] 1.025 Urine Protein 15 H Urine Glucose (UA) Normal Urine Ketones Negative Urine Occult Blood Negative Urine Nitrite Negative Urine Bilirubin Negative Urine Urobilinogen Normal Ur Leukocyte Esterase 25 H Urine RBC 0 SEEN Urine WBC 0-5 SEEN Ur Squamous Epith Cells 0 SEEN Urine Bacteria 0 SEEN Urine Mucus 0 SEEN Urine Test Negative Radiography Diagnostic Testing: Clinical Impression(s) from Imaging Studies Abdomen/Pelvis CT 06/04/25 01:59 IMPRESSION: No acute findings. Reading Location: [place] [address] Discharge Plan Triage Chief Complaint: Nausea/Vomiting ED Provider: Shivani Quevedo Dx/Rx/DC Orders Clinical Impression: Abdominal pain of unknown etiology, Crohn's disease, Constipation, Nausea & vomiting Instructions: ED Abdominal Pain Unkn Cause Fem Prescriptions: New hyoscyamine sulfate [Levsin] 0.125 mg tablet 0.125 mg PO Q8H PRN (Reason: dyspepsia) Qty: 20 0RF famotidine 20 mg tablet 20 mg PO BID Qty: 28 0RF No Action famotidine [Pepcid] 20 mg tablet 20 mg PO DAILY Qty: 30 6RF doxepin 75 mg capsule 75 mg PO DAILY PRN (Reason: sleep) Qty: 90 1RF hydroxyzine HCl 50 mg tablet 50 mg PO BID PRN (Reason: anxiety) Qty: 180 1RF diazepam 2 mg tablet 2 mg PO TID PRN Qty: 20 0RF loperamide 2 mg capsule 2 mg PO PRN Rx Instructions: MAX 8/DAILY acetaminophen 500 mg capsule 500 mg PO Q6H PRN (Reason: pain) lisinopril 2.5 mg tablet 2.5 mg PO DAILY insulin lispro 100 unit/mL insulin pen 15 unit subcut TID insulin glargine [Lantus Solostar U-100 Insulin] 100 unit/mL (3 mL) insulin pen 40 unit subcut BID insulin glargine-yfgn 100 unit/mL (3 mL) insulin pen 40 unit subcut BID trazodone 50 mg tablet 50 mg PO QHS spironolactone 50 mg tablet 50 mg PO DAILY Ozempic 0.25 mg or 0.5 mg (2 mg/3 mL) pen injector 0.5 mg subcut QWEEK promethazine 25 mg tablet 25 mg PO TID PRN (Reason: nausea and vomiting) Qty: 21 0RF (DME) FreeStyle Javon 2 Andrew Misc See Rx Instructions .Route Qty: 1 0RF Rx Instructions: As directed (DME) FreeStyle Javon 2 Sensor Kit See Rx Instructions .Route Qty: 1 8RF Rx Instructions: As directed (DME) lancets Misc See Rx Instructions .ROUTE .MEDSUPPLY Qty: 200 2RF Rx Instructions: As directed, fasting and 2 hours post meals (DME) True Metrix Glucose Test Strip Strip See Rx Instructions .Route Qty: 100 2RF Rx Instructions: As directed, fasting and 2hr post meals .4x daily (DME) True Metrix Glucose Test Strip Strip See Rx Instructions .Route Qty: 100 6RF Rx Instructions: Test fasting and 2 hours after breakfast, lunch, dinner (DME) lancets [Droplet Lancets] 30 gauge misc See Rx Instructions .ROUTE .MEDSUPPLY Qty: 200 6RF Rx Instructions: Check blood sugars fasting and 2 hours after breakfast, lunch, and supper. quetiapine 25 mg tablet 25 mg PO QHS Qty: 30 0RF Patient Comments: I HAVE ONLY BEEN TAKING NEEDED, NOT REGULARLY modafinil 200 mg tablet 200 mg PO DAILY Qty: 30 0RF Stand Alone Forms: ED Work / School Excuse Primary Care Provider: Lara Santana Referrals: Lara Santana MD [Primary Care Provider] - Friend,DO Juan Alberto [Med Staff - Active Staff] - Activity Restrictions/Additional Instructions: Your workup today was normal and reassuring. The exact cause of your symptoms is not clear however I do recommend following up with our GI specialist. Take medications as prescribed. Print Language: Italian Disposition Disposition: Home, Self Care Discharge Date/Time: 06/04/25 04:00
[2025-06-04 02:27] LABS: Mucous, Urine 0 SEEN /hpf (<or=2+); Red Blood Cells-Urine 0 SEEN /hpf (0-5); Squamous Epithelial Cells - UA 0 SEEN /hpf (5-10)
[2025-06-04 02:29] LABS: Color, Urine Yellow (Yellow); Glucose, Dipstick Normal (Normal); Ketone-Dipstick Negative (Negative); Leukocyte Esterase-Dipstick 25 /ul (Negative); Nitrite-Dipstick Negative (Negative); Occult Blood-Urine Negative /ul (Negative); Protein-Dipstick 15 mg/dl (Negative); Specific Gravity, Urine 1.025 (1.002-1.030); Urine Bilirubin Dipstick Negative (Negative)
[2025-06-04 02:31] LABS: Internal QC Validated? YES +Cl - CLEAR BKGD; Pregnancy, Urine Negative Negative; Record Kit Lot#,Urine Preg 0000962302
[2025-06-04 02:31] LABS: AST(SGOT) 22 U/L (<=31); Alanine Aminotransfer ALT/SGPT 24 U/L (<=34); Albumin, Serum 4.1 g/dL (3.5-5.0); Alkaline Phosphatase 99 U/L (35-104); Anion Gap 13 (5-15); BUN 9 mg/dL (4-19); BUN/Creat Ratio 12.3 RATIO (10-20); Calcium,Total 9.0 mg/dL (7.6-11.0); Carbon Dioxide 19.0 mmol/L (21.0-32.0); Chloride 107 mmol/L (98-108); Estimated Creatinine Clearance 145.30 ml/min (50-250); Globulin 3.2 g/dL (2.2-4.2); Glucose 107 mg/dL (70-99); Potassium 3.7 mmol/L (3.3-5.1)
[2025-06-04 03:59] VITALS: BP 100/43; PULSE 72; RESP 16; TEMP 36.3; O2SAT 98
== END 2025-06-04 04:00 | disposition home or self-care (01) ==
PROVIDERS: Emergency Provider Emergency Medicine; PCP Internal Medicine; Visit Provider Emergency Medicine
DX: R11.2 Nausea with vomiting, unspecified (principal); K50.90 Crohn's disease, unspecified, without complications; E11.9 Type 2 diabetes mellitus without complications; Z79.4 Long term (current) use of insulin; F17.200 Nicotine dependence, unspecified, uncomplicated; R10.9 Unspecified abdominal pain; Z79.85 Long-term (current) use of injectable non-insulin antidiabetic drugs; F41.9 Anxiety disorder, unspecified; F32.A Depression, unspecified; Z79.899 Other long term (current) drug therapy; Z90.49 Acquired absence of other specified parts of digestive tract; K59.00 Constipation, unspecified
CPT/HCPCS: 74177; 80053; 81001; 81025; 85025; 96361; 96374; 96375; 99283; Q9967; A4216; J2405

== ENCOUNTER 2025-06-22 03:07 | Emergency (ER) | payer BC, MEDICAID, SELFPAY ==
[2025-06-22 03:07] VITALS: BP 144/79; PULSE 89; RESP 18; TEMP 37.1; O2SAT 99; BMI 52.9
--- NOTE | 2025-06-22 03:18 | ED.VIS.GI ---
HPI HPI - GI History of Present Illness Chief Complaint: Abd Pain Informant: patient Abdominal Pain/Flank Pain Onset: Today and Yesterday Context: Gradual Onset Timing: Intermittent Quality: Aching Location: RUQ and RLQ Current Severity: Mild Maximum Severity: Mild Worsened by: Nothing Relieved by: Nothing Nausea/Vomiting/Emesis GI Symptom: Positive for Nausea Severity: Mild Diarrhea/Melena/Hematochezia GI Symptom: Negative for Diarrhea, Melena or Hematochezia Associated Symptoms Associated Symptoms: Negative for Dysuria, Frequency, Hematuria or Urgency Narrative Narrative: 33-year-old female history of PTSD, diabetes, endometriosis, Crohn's disease with prior cholecystectomy, partial colon resection and partial small bowel resection. States she still has her appendix. States that she has had abdominal pain yesterday and today with loose stools. No dysuria. No fever. No trauma. Began on Sunday morning. Prior similar symptoms: Yes Recent Illness/Hospitalization: No PFSH PFSH Medical History Anxiety Depression Type 2 diabetes mellitus Hx of mastitis Congenital heart defect Endometriosis Crohn's disease Home Medications ?Medication ?Instructions ?Recorded ?Last Taken ?Type acetaminophen 500 mg capsule 500 mg PO Q6H PRN pain 04/12/24 04/12/24 History loperamide 2 mg capsule 2 mg PO PRN 04/12/24 Unknown History flash glucose scanning reader #1 ea 12/19/24 Unknown Rx (FreeStyle Javon 2 [place]) flash glucose sensor (FreeStyle #1 ea 12/19/24 Unknown Rx Javon 2 Sensor kit) blood sugar diagnostic (True #100 ea 12/22/24 Unknown Rx Metrix Glucose Test Strip) blood sugar diagnostic (True #100 ea 12/22/24 Unknown Rx Metrix Glucose Test Strip) lancets #200 ea 12/22/24 Unknown Rx lancets 30 gauge (Droplet Lancets) #200 ea 12/22/24 Unknown Rx doxepin 75 mg capsule 75 mg PO DAILY PRN sleep #90 caps 04/30/25 Unknown Rx hydroxyzine HCl 50 mg tablet 50 mg PO BID PRN anxiety #180 tabs 04/30/25 Unknown Rx quetiapine 25 mg tablet 25 mg PO QHS #30 tabs 05/14/25 Unknown Rx promethazine 25 mg tablet 25 mg PO TID PRN nausea and 05/20/25 Unknown Rx vomiting #21 tabs modafinil 200 mg tablet 200 mg PO DAILY #30 tabs 06/02/25 Unknown Rx famotidine 20 mg tablet 20 mg PO BID #28 TABLETS 06/04/25 Unknown Rx hyoscyamine sulfate 0.125 mg 0.125 mg PO Q8H PRN dyspepsia #20 06/04/25 Unknown Rx tablet (Levsin) tabs insulin glargine 100 unit/mL (3 40 unit subcut BID 06/04/25 Unknown History mL) subcutaneous pen (Lantus Solostar U-100 Insulin) insulin glargine-yfgn 100 unit/mL 40 unit subcut BID 06/04/25 Unknown History (3 mL) subcutaneous pen insulin lispro 100 unit/mL 15 unit subcut TID 06/04/25 Unknown History subcutaneous pen lisinopril 2.5 mg tablet 2.5 mg PO DAILY 06/04/25 Unknown History semaglutide 0.25 mg or 0.5 mg (2 0.5 mg subcut QWEEK 06/04/25 Unknown History mg/3 mL) subcutaneous pen injector (Ozempic) spironolactone 50 mg tablet 50 mg PO DAILY 06/04/25 Unknown History trazodone 50 mg tablet 50 mg PO QHS 06/04/25 Unknown History diazepam 2 mg tablet 2 mg PO TID PRN ptsd #20 tabs 06/16/25 Unknown Rx Allergy/AdvReac Type Severity Reaction Status Date / Time methylprednisolone (From Allergy Severe Anaphylaxis Verified 06/22/25 03:07 Solu-Medrol) midazolam (From Versed) Allergy Unknown Other Verified 06/22/25 03:07 benzocaine (From Cetacaine) Allergy Anaphylaxis Verified 06/22/25 03:07 butamben (From Cetacaine) Allergy Anaphylaxis Verified 06/22/25 03:07 methylprednisolone sodium Allergy Anaphylaxis Verified 06/22/25 03:07 succinate (From Solu-Medrol) metoclopramide (From Reglan) Allergy Other Verified 06/22/25 03:07 sertraline Allergy Other Verified 06/22/25 03:07 tetracaine (From Cetacaine) Allergy Anaphylaxis Verified 06/22/25 03:07 midazolam HCl (From Versed) AdvReac Other Verified 06/22/25 03:07 Family History Grandmother Breast cancer, Onset Age: 37 Paternal Aunt Breast cancer, Onset Age: 36 Paternal Aunt Breast cancer Maternal Grandmother Breast cancer, Onset Age: 80 Maternal Surgical History Hx of myringotomy History of colon resection H/O dilation and curettage H/O resection of small bowel History of cholecystectomy Hx LEEP (loop electrosurgical excision procedure), cervix, Social History adopted: No 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al status: employed 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al exposures/hazards: Yes pets and animals: Yes pets and animals: dog(s) history of recent travel: Yes ([place], [place]) out of state: Yes out of country: No sexually active: Yes Smoking Status: Light Smoker (<10/day) quit status: considering quitting alcohol intake: never substance use type: does not use diet: other well-balanced diet: about half the time caffeine: Yes Type: carbonated beverages Number of servings: 2 eating out: 4 or more times/week during the past year weight has: decreased > 10 lbs what type of physical activity do you participate in: weight training frequency: 1-2 times per week duration: < 15 minutes/day keiko/jewish: Scientologist seatbelt use: always do you feel safe at home: Yes additional social history: FOB is Donor ROS ROS ED ROS Narrative Abdominal pain. Nausea. Diarrhea. Constitutional Constitutional ED: Denies chills or fever(s) ENT ENT ED: Denies ear pain Cardiovascular Cardiovascular: Denies chest pain Respiratory/Chest Respiratory/Chest: Denies cough or dyspnea Gastrointestinal Gastrointestinal: Reports abdominal pain, diarrhea and nausea; Denies constipation, melena or vomiting Genitourinary Genitourinary ED: Denies dysuria or hematuria Musculoskeletal Musculoskeletal: Denies arthralgias or back pain Integumentary Denies abscess Neurologic Neurologic: Denies headache(s) Psychiatric Psychiatric: Denies anxiety Endocrine Endocrinology: Denies polydipsia Hematologic/Lymphatic Hematologic/Lymphatic: Denies easy bleeding Allergic/Immunologic Allergic/Immunologic ED: Denies mouth swelling, tongue swelling or urticaria EXAM Physical Exam Narrative Exam Narrative: 33-year-old female sitting upright in bed. Vital signs are stable afebrile. No acute distress. H EENT exam pupils round react to light. Moist mucous membranes. Neck nontender. No lymphadenopathy. Back nontender. Lungs clear to auscultation bilaterally. Heart regular rhythm rate about 90 no murmur. Chest wall and ribs are nontender. Abdomen soft nondistended normal bowel sounds without peritoneal signs. Really really no reproducible pain. She states she is having right-sided abdominal pain generally not reproducible. There is no Sheppard sign or McBurney's point tenderness. No hernia or mass. No signs of trauma or bruising. No obstruction. Soft positive bowel sounds. Patient is moving all 4 extremities. Normal strength. Nontender no edema. Neurologically she is awake and alert. Answering questions following commands. No focal motor deficits. Benign exam. Const Vital Signs: 06/22/25 03:07 06/22/25 05:07 Temperature 98.8 F Temperature Source Oral Pulse Rate 89 74 Respiratory Rate 18 18 Blood Pressure 144/79 H 122/62 H Blood Pressure Mean 100 82 Pulse Ox 99 98 Oxygen Delivery Method Room Air Room Air Positive well nourished and well developed; Negative for cachectic, contractures or unkempt General Appearance ED: well developed and NAD; Negative for unkempt, cachectic, contractures or pallor Nutritional Appearance: Negative for cachectic HEENT Reports moist mucous membranes normocephalic and atraumatic Eyes PERRL and EOMs intact bilaterally Neck no lymphadenopathy, supple and no JVD Resp normal respiratory effort and clear to auscultation bilaterally Cardio regular rate, regular rhythm, S1 normal heart sound, S2 normal heart sound and no murmurs GI non-tender, non-distended and no masses GI Narrative: Nontender. No hernia. No mass. No obstruction. No McBurney's point tenderness. Auscultation: normoactive bowel sounds Palpation: soft; Negative for tender, guarding, rigid, hernia, mass, pulsatile mass or rebound tenderness present Back/Spine no CVA tenderness General Back: Negative for CVA tenderness Cervical Spine: Negative for cervical spine tenderness Thoracic Spine / Upper Back: Negative for thoracic spinal tenderness Lumbar Spine / Lower Back: Negative for lumbar spinal tenderness Extremity full ROM General Extremety ED: Negative for edema or tenderness General Extremity: Negative for edema Neuro CN's II-XII intact bilaterally Sensorium / Orientation: alert, oriented to person, oriented to place and oriented to time Motor Exam: strength 5/5 throughout Psych mental status grossly normal and thought process normal Appearance: Negative for unkempt Attitude: No agitated Mood & Affect: Negative for depressed, anxious or tearful Skin no wounds General Skin Exam: Negative for jaundice or pallor Lesions: no lesions Rashes: no rashes MDM MDM MDM Narrative Medical decision making narrative: 33-year-old female with complaint of abdominal pain. Exam benign. Screening labs being obtained. I reviewed her prior visits. She has had about 6-7 CAT scans in the last 2-1/2 years here. They have all been negative. Her exam is benign there is no reproducible pain. I am going to hold off on a CAT scan till I see the labs. Muscle labs are significantly abnormal I do not think she needs imaging. Should be given Toradol for pain. IV fluids. And Zofran for nausea. Multiple repeat exams. The last 1 around 5:32 PM. Patient was initially treated with Toradol for pain. Then given morphine. Her abdominal exam remains benign. She plaints of right side abdominal pain not specifically on McBurney's point. But is not reproducible pain. She has been rebound. And no peritoneal signs. Lab workup is negative. Patient is comfortable being discharged home. She has appointment follow-up with her primary care provider in [place] on Sunday. She knows to return if she is having increasing pain intractable vomiting or fever. History & Record Review Discussion w/independent historian: Patient Additional record(s) reviewed:: Prior inpatient record, Prior outpatient record, Prior ED visit and Prior labs Lab Data Attestation: I reviewed the patient's lab results. Lab results narrative: CBC shows normal white count 11. H&H 12.5 and 40. Platelets 3 of 7. Electrolytes show sodium 136. Gap 14. BUN and creatinine of 13 and 0.8. Liver enzymes are unremarkable. Lipase is 25. Serum test is negative. Urinalysis shows no nitrates. No white or red cells. 2+ bacteria. Labs: Laboratory Results - last 24 hr 06/22/25 06/22/25 03:29 04:47 WBC 11.0 RBC 4.88 Hgb 12.5 Hct 40.0 MCV 82.0 MCH 25.6 L MCHC 31.3 L RDW Std Deviation 45.5 H RDW Coeff of Silke 15.2 H Plt Count 307 MPV 10.3 Immature Gran % (Auto) 0.400 Neut % (Auto) 57.1 Lymph % (Auto) 32.3 [place] % (Auto) 6.0 Eos % (Auto) 3.5 Baso % (Auto) 0.7 Absolute Neuts (auto) 6.3 Absolute Lymphs (auto) 3.55 Nucleated RBC % 0 Sodium 136 Potassium 3.7 Chloride 104 Carbon Dioxide 17.4 L Anion Gap 14 BUN 13 Creatinine 0.86 Estim Creat Clear Calc 127.91 Est GFR (MDRD) Non-Af 91 BUN/Creatinine Ratio 14.9 Glucose 90 Calcium 9.2 Total Bilirubin 0.60 AST 32 ALT 23 Alkaline Phosphatase 87 Total Protein 7.5 Albumin 4.1 Globulin 3.4 Albumin/Globulin Ratio 1.2 Lipase 25 Serum , Qual NEGATIVE Urine Color Yellow Urine Clarity Sl. Cloudy Urine pH 6.0 Ur Specific [place] 1.025 Urine Protein 30 H Urine Glucose (UA) Normal Urine Ketones Negative Urine Occult Blood 150 H Urine Nitrite Negative Urine Bilirubin Negative Urine Urobilinogen Normal Ur Leukocyte Esterase 100 H Urine RBC 0-5 SEEN Urine WBC 0-5 SEEN Ur Squamous Epith Cells 10-25 SEEN Ur Transition Epith Cell 0-5 SEEN Urine Bacteria 2+ Urine Mucus 0 SEEN Discharge Plan Triage Chief Complaint: Abd Pain ED Provider: Agustín Estrada Dx/Rx/DC Orders Clinical Impression: Abdominal pain, History of Crohn's disease Instructions: Abdominal Pain Prescriptions: No Action doxepin 75 mg capsule 75 mg PO DAILY PRN (Reason: sleep) Qty: 90 1RF hydroxyzine HCl 50 mg tablet 50 mg PO BID PRN (Reason: anxiety) Qty: 180 1RF loperamide 2 mg capsule 2 mg PO PRN Rx Instructions: MAX 8/DAILY acetaminophen 500 mg capsule 500 mg PO Q6H PRN (Reason: pain) lisinopril 2.5 mg tablet 2.5 mg PO DAILY insulin lispro 100 unit/mL insulin pen 15 unit subcut TID insulin glargine [Lantus Solostar U-100 Insulin] 100 unit/mL (3 mL) insulin pen 40 unit subcut BID insulin glargine-yfgn 100 unit/mL (3 mL) insulin pen 40 unit subcut BID trazodone 50 mg tablet 50 mg PO QHS spironolactone 50 mg tablet 50 mg PO DAILY Ozempic 0.25 mg or 0.5 mg (2 mg/3 mL) pen injector 0.5 mg subcut QWEEK hyoscyamine sulfate [Levsin] 0.125 mg tablet 0.125 mg PO Q8H PRN (Reason: dyspepsia) Qty: 20 0RF famotidine 20 mg tablet 20 mg PO BID Qty: 28 0RF promethazine 25 mg tablet 25 mg PO TID PRN (Reason: nausea and vomiting) Qty: 21 0RF (DME) FreeStyle Javon 2 [place] Misc See Rx Instructions .Route Qty: 1 0RF Rx Instructions: As directed (DME) FreeStyle Javon 2 Sensor Kit See Rx Instructions .Route Qty: 1 8RF Rx Instructions: As directed (DME) lancets Misc See Rx Instructions .ROUTE .MEDSUPPLY Qty: 200 2RF Rx Instructions: As directed, fasting and 2 hours post meals (DME) True Metrix Glucose Test Strip Strip See Rx Instructions .Route Qty: 100 2RF Rx Instructions: As directed, fasting and 2hr post meals .4x daily (DME) True Metrix Glucose Test Strip Strip See Rx Instructions .Route Qty: 100 6RF Rx Instructions: Test fasting and 2 hours after breakfast, lunch, dinner (DME) lancets [Droplet Lancets] 30 gauge misc See Rx Instructions .ROUTE .MEDSUPPLY Qty: 200 6RF Rx Instructions: Check blood sugars fasting and 2 hours after breakfast, lunch, and supper. quetiapine 25 mg tablet 25 mg PO QHS Qty: 30 0RF Patient Comments: I HAVE ONLY BEEN TAKING NEEDED, NOT REGULARLY modafinil 200 mg tablet 200 mg PO DAILY Qty: 30 0RF diazepam 2 mg tablet 2 mg PO TID PRN Qty: 20 0RF Primary Care Provider: Lara Santana Referrals: Lara Santana MD [Primary Care Provider] - 3-5 Days if not improving Activity Restrictions/Additional Instructions: Plenty of fluids and rest. Increase your diet slowly as tolerated. Tylenol and Motrin for pain. Zofran as needed for nausea. Follow-up with your doctor if not improving or return if worse. Print Language: Tunisian Disposition Disposition: Home, Self Care
--- OUTSIDE RECORDS SUMMARY | 2025-06-22 03:29 | XMS RPT_ITS | CCD ---
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 Care Margin Trimmer Name Role Phone JAYDEN PÉREZ Unavailable Unavailable PROVIDER, UNKNOWN Unavailable Unavailable No, PCP Unavailable Unavailable MAYELA ELLIOTT Unavailable Unavailable FREDDIE SHAW V Unavailable Unavailable YEIMY PEREIRA Unavailable Unavailable Young, Jade S Unavailable Unavailable Jere Jade S Unavailable Unavailable Nirmal Maddox Unavailable Unavailable Nirmal Maddox Unavailable Unavailable Swapna Izquierdo Unavailable Unavailable Swapna Izquierdo Unavailable Unavailable Freddie Tinoco Unavailable [phone] AMBERLY MORGAN Unavailable Unavailable SELF, REFERRED [...] Provider Un available MITCHEL Keene Attending Provider DR SALIMA CONSTANTINO MD Attending Unavailabl e PHYSICIAN, NONE Primary Care Unavailable NAYA GODFREY CNP Attending Unavaila ble PHYSICIAN, NONE Primary Care Unavailable STU JOHNSON Referring Unavailable STU JOHNSON Attending Unavailable CLARKE TAYLOR Attending Unavailable HEMAL SALINAS Referring Unavailabl e MARIATOS, YANELIS J Primary Care Unavailable MARYANA WILLIS Attending Unavailable HEMAL SALINAS Referring Unavailabl e SPIRTOS, YANELIS J Primary Care Unavailable MAJOR HERNANDEZ Attending Unavailable AMBERLY PETIT Referring Unavailab le SPIRTOS, YANELIS J Primary Care Unavailable CLARKE TAYLOR Attending Unavailable HEMAL SALINAS Referring Unavailabl e SPIRTOS, YANELIS J Primary Care Unavailable Unavailable Primary Care Provider Unavailabl SUGEY Mendoza Attending Unavailable Unavailable Primary Care Provider Unavailabl e Generic Provider , No Assigned Pcp Primary Car e Provider Unavailable Earl [place] MD Unavailable [phone] Generic Provider , No Assigned Pcp Primary Car e Provider Unavailable Esther SEAMAN [facility] Primary Care Provider EARL COLORADO Attending Unavailable EARL COLORADO Admitting Unavailable EARL COLORADO Referring Unavailable CARLINE POLLACK Attending Unavailable JOSE GUADALUPE GUPTA Attending Unavailable EARL COLORADO Referring Unavailable STANISLAV, EARL Amos Admitting Unavailable STANISLAV, EARL Amos Attending Unavailable STANISLAV, [...] Primary Care Unavailable CLAIR CASTRO Admitting Unavailable CANDYJOSE GUADALUPE CORREA A Attending Unavailable BAZELMARTY, KELLI A Admitting Unavailable BAZELLA KELLI A Attending Unavailable GENERIC PROVIDER, NO ASSIGNED PCP Primary Care Unavailable SHAKERJOSE GUADALUPE E Admitting Unavailable SHAKER, ALBERTO Attending Unavailable SHAKER, ALBERTO Referring Unavailable GENERIC PROVIDER, NO ASSIGNED PCP Primary Care Unavailable CARLINE POLLACK Attending Unavailable YULIYA CHAVIRA Attending Unavailable GENERIC PROVIDER, NO ASSIGNED PCP Primary Care Unavailable PAULINEABI, ZOË Attending Unavailable ZARRABI, ZOË Referring Unavailable GENERIC PROVIDER, NO ASSIGNED PCP Primary Care Unavailable KARENRRABI, ZOË Attending Unavailable ZARRABI, ZOË Primary Care Unavailable ZARRABI, ZOË Attending Unavailable ZARRABI, ZOË Primary Care Unavailable Care Physician, No Primary Primary Care Unava ilable JESS SIERRA Attending Unavailable Care Physician, No Primary Primary Care Unava ilable Amberly Laboy Attending Unavailable Leticia Bergman Primary Care Unavailable Santi Hankins Attending Unavailable Shivani Quevedo Attending Unavailable Zarrabi, Zoë Primary Care Unavailable Care Physician, No Primary Primary Care Unava ilable Amberly Laboy Attending Unavailable Care Physician, No Primary Primary Care Unava ilable Major Mejia Attending Unavailable Zarrabi, Zoë Primary Care Unavailable Major Mejia Attending Unavailable Care Physician, No Primary Primary Care Unava ilable Jaida Fiore Attending Unavailable Care Physician, No Primary Primary Care Unava ilable Amberly Laboy Attending Unavailable Care Physician, No Primary Primary Care Unava ilable Amberly Laboy Attending Unavailable Care Physician, No Primary Primary Care Unava ilable Jaida Fiore Attending Unavailable Pacheco, Leticia Primary Care Unavailable Mayela Jacinto Attending Unavailable Pacheco, Leticia Referring Unavailable Pacheco, Leticia Referring Unavailable Care Physician, No Primary Primary Care Unava ilable Hemal Salinas Attending Unavailable Care Physician, No Primary Primary Care Unava ilable Jaida Fiore Attending Unavailable Care Physician, No Primary Primary Care Unava ilable Amberly Laboy Attending Unavailable Care Physician, No Primary Primary Care Unava ilable Hemal Salinas Attending Unavailable Hemal Salinas Referring Unavailable Care Physician, No Primary Primary Care Unava ilable Marisol Elliott Attending Unavailable Chandu, Marisol Referring Unavailable Care Physician, No Primary Primary Care Unava ilable Jaida Fiore Attending Unavailable Care Physician, No Primary Primary Care Unava ilable Amberly Laboy Attending Unavailable Zarrabi, Zoë Primary Care Unavailable SkAmberly morales Attending Unavailable Care Physician, No Primary Referring Unava ilable Care Physician, No Primary Primary Care Unava ilable Mayela Jacinto Attending Unavailable Pacheco, Leticia Primary Care Unavailable Major Mejia Attending Unavailable Marisol Elliott Attending Unavailable Marisol Elliott Referring Unavailable Pacheco, Leticia Primary Care Unavailable Pacheco, Leticia Primary Care Unavailable Amberly Haas Attending Unavailabl e Amberly Haas Referring Unavailabl e Care Physician, No Primary Primary Care Unava ilable Pacheco Leticia Referring Unavailable Hemal Salinas Attending Unavailable Care Physician, No Primary Primary Care Unava ilable Jaida Fiore Attending Unavailable Care Physician, No Primary Primary Care Unava ilable Amberly Haas Attending Unavailabl e Pacheco, Leticia Referring Unavailable Zarrabi, Zoë Primary Care Unavailable SkAmberly morales Attending Unavailable Pacheco, Leticia Primary Care Unavailable Hemal Salinas Attending Unavailable Pacheco, Leticia Referring Unavailable Care Physician, No Primary Primary Care Unava ilable Amberly Laboy Attending Unavailable Care Physician, No Primary Primary Care Unava ilable Jaida Fiore Attending Unavailable Care Physician, No Primary Primary Care Unava ilable Jaida Fiore Attending Unavailable Care Physician, No Primary Primary Care Unava ilable Amberly Laboy Attending Unavailable Care Physician, No Primary Primary Care Unava ilable Amberly Laboy Attending Unavailable Rodolfo Keene Attending Unavailable Care Physician, No Primary Referring Unava ilable Care Physician, No Primary Primary Care Unava ilable Pacheco, Leticia Primary Care Unavailable Mayela Jacinto Attending Unavailable Pacheco, Leticia Referring Unavailable Care Physician, No Primary Referring Unava ilable Care Physician, No Primary Primary Care Unava ilable Mayela Jacinto Attending Unavailable Care Physician, No Primary Primary Care Unava ilable Amberly Laboy Attending Unavailable Care Physician, No Primary Primary Care Unava ilable Jaida Fiore Attending Unavailable Care Physician, No Primary Referring Unava ilable Care Physician, No Primary Primary Care Unava ilable Amberly Haas Attending UnavailZoë Arriola Primary Care Unavailable Amberly Laboy Attending Unavailable Marisol Elliott Attending Unavailable Pacheco, Leticia Referring Unavailable Pacheco, Leticia Primary Care Unavailable Care Physician, No Primary Primary Care Unava ilable Amberly Laboy Attending Unavailable Care Physician, No Primary Primary Care Unava ilable Jaida Fiore Attending Unavailable Care Physician, No Primary Primary Care Unava ilable Jaida Fiore Attending Unavailable Care Physician, No Primary Primary Care Unava ilable Jaida Fiore Attending Unavailable Care Physician, No Primary Primary Care Unava ilable Amberly Laboy Attending Unavailable Amberly Haas Attending Unavailabl e Pacheco, Leticia Referring Unavailable Pacheco, Leticia Primary Care Unavailable Care Physician, No Primary Primary Care Unava ilable Shaver, Santi Attending Unavailable Care Physician, No Primary Primary Care Unava ilable Mayela Jacinto Attending Unavailable Mayela Jacinto Referring Unavailable Allergies Allergy Classification Reported Allergen(s) Allergy Type Date of Onset Reaction(s) Facility (5 sources) hydrocortisone; Translations: [HYDROCORTISONE SOD SUCCINATE] Drug Allergy 08-07-20 15 [facility] (4 sources) metroNIDAZOLE; Translations: [METRONIDAZOLE HCL] Drug Allergy 08-07-20 15 [facility] (20 sources) midazolam; Translations: [MIDAZOLAM] Drug Allergy 03-12-20 15 Anxiety, Nausea Only [facility] (7 sources) Penicillins; Translations: [PENICILLINS] Propensity to adverse reactions to drug 02-04-20 14 Itching [facility] (8 sources) buPROPion; Translations: [BUPROPION] Drug Allergy 10-13-20 16 Hallucinations , Rash [facility] Work Phone: (2 sources) Ciprofloxacin; Translations: [CIPROFLOXACIN HCL] Drug Allergy 05-20-[address] [facility] Work Phone: (8 sources) Ciprofloxacin; Translations: [CIPROFLOXACIN] Drug Allergy 05-20-[address] [facility] Work Phone: (7 sources) Citalopram; Translations: [CITALOPRAM] Drug Allergy 11-12-[address] [facility] Work Phone: (2 sources) clonazePAM; Translations: [CLONAZEPAM] Drug Allergy 10-13-[address] [facility] Work Phone: (2 sources) Hydrocortisone; Translations: [HYDROCORTISONE] Drug Allergy 08-07-[address] [facility] Work Phone: (5 sources) methylPREDNISolone; Translations: [METHYLPREDNISOLONE] Drug Allergy 03-12-[address] [facility] Work Phone: (1 source) methylPREDNISolone Drug Allergy 03-12-[address] [facility] Work Phone: (7 sources) metroNIDAZOLE; Translations: [METRONIDAZOLE] Drug Allergy 08-07-[address] [facility] Work Phone: (15 sources) Midazolam; Translations: [MIDAZOLAM HCL] Drug Allergy 09-23-[address] [facility] Work Phone: (2 sources) Morphine; Translations: [MORPHINE] Drug Allergy 09-23-[address] [facility] Work Phone: (1 source) Penicillins Propensity to adverse reactions to drug 09-01-[address] [facility] Work Phone: (6 sources) Sertraline; Translations: [SERTRALINE] Drug Allergy 10-08-[address] [facility] Work Phone: (17 sources) Benzocaine; Translations: [BENZOCAINE] Drug Allergy 08-18-20 Anaphylaxis [facility] (17 sources) butamben; Translations: [BUTAMBEN] Drug Allergy 08-18-20 Anaphylaxis [facility] (13 sources) methylPREDNISolone; Translations: [methylprednisolone sodium succinate] Drug Allergy 08-18-20 Anaphylaxis [facility] (17 sources) Tetracaine; Translations: [TETRACAINE] Drug Allergy 08-18-20 Anaphylaxis [facility] (6 sources) Adhesive agent; Translations: [ADHESIVE] Propensity to adverse reactions to drug (disorder) 11-07-19 14 Rash [facility] (1 source) Amoxicillin; Translations: [AMOXICILLIN] Drug Allergy 02-04-20 14 [facility] (7 sources) gabapentin; Translations: [GABAPENTIN] Drug Allergy 12-25-19 14 Unknown, Other [facility] (6 sources) Propofol; Translations: [PROPOFOL] Drug Allergy 02-19-20 14 Other [facility] (1 source) Sertraline; Translations: [SERTRALINE HCL] Drug Allergy 10-08-20 12 [facility] (1 source) METHYLPREDNISOLONE SODIUM SUCC; Translations: [METHYLPREDNISOLONE SODIUM SUCC] Propensity to adverse reactions to drug (disorder) 09-23-20 12 [facility] (7 sources) Metoclopramide; Translations: [METOCLOPRAMIDE] Drug Allergy 02-22-20 24 Other [facility] (1 source) Penicillins Propensity to adverse reactions 02-04-20 14 Hives, Itching, Unknown [facility] (17 sources) Metoclopramide; Translations: [METOCLOPRAMIDE HCL] Drug Allergy 12-24-19 25 Other [facility] (17 sources) Solu-Medrol Mix-O-Vial; Translations: [SOLU-MEDROL MIX-O-VIAL] Propensity to adverse reactions 12-23-19 25 Anaphylaxis [facility] (3 sources) Penicillins Propensity to adverse reactions 02-04-20 14 Hives, Itching, Other, Unknown [facility] Work Phone: (1 source) Benzocaine Drug Allergy 06-04-20 [facility] (1 source) butamben Drug Allergy 06-04-20 [facility] (1 source) methylPREDNISolone Drug Allergy 06-04-20 [facility] (1 source) Metoclopramide Drug Allergy 06-04-20 [facility] (1 source) Midazolam Drug Allergy 06-04-20 [facility] (1 source) Sertraline Drug Allergy 06-04-20 [facility] (1 source) Tetracaine Drug Allergy 06-04-20 [facility] Medications Current Medications Medication Drug [...] gestational diabetes mellitus (GDM) in second trimester ([facility]) Use for testing blood sugar fasting and 1 hour after each meal. 4-6 times per day during 1 each 12/25/2024 12:13 PM EST 12/25/2024 Active blood-glucose sensor (Dexcom G7 Sensor) device (15 sources) Start: 03-01-2025 blood-glucose sensor (Dexcom G7 Sensor) device Indications: Insulin controlled gestational diabetes mellitus (GDM) in second trimester ([facility]) Use 1 sensor and change every 10 days 3 each 2 03/01/2025 Active Start: 02-03-2025 End: 03-01-2025 blood-glucose sensor (Dexcom G7 Sensor) device Indications: Insulin controlled gestational diabetes mellitus (GDM) in second trimester ([facility]) Use 1 sensor and change every 10 days 3 each 02/03/2025 03/01/2025 Discontinued Start: 02-03-2025 blood-glucose sensor (Dexcom G7 Sensor) device Indications: Insulin controlled gestational diabetes mellitus (GDM) in second trimester ([facility]) Use 1 sensor and change every 10 days 3 each 02/03/2025 Active Start: 12-29-2024 blood-glucose sensor (Dexcom G7 Sensor) device Indications: Insulin controlled gestational diabetes mellitus (GDM) in second trimester ([facility]) Use 1 sensor and change every 10 [...] mg tablet Indications: care following vaginal delivery ([facility]) Take 1 tablet (10 mg) by mouth [...] mg tablet Indications: Headache in , antepartum ([facility]) Take 1 tablet (5 mg) by mouth [...] 1245 docusate sodium 50 mg / sennosides, detention 8.6 mg oral tablet (1 source) Start: 02-12-2025 doxepin hydrochloride 75 mg oral capsule (20 sources) Tricyclic Antidepressant Start: 12-23-2024 End: 03-02-2025 take 1 capsule by mouth once daily at bedtime doxepin (SINEquan) 75 mg capsule Indications: Depression affecting in third trimester, antepartum ([facility]) Take 1 capsule (75 mg) by mouth [...] 05, 2023 12:00am 21 day ethinyl estradiol 0.098495 mg/hr / etonogestrel 0.005 mg/hr vaginal ring [...] than or equal to 110, Starting on 12/23/24 at 1741, For 1 dose, Consult provider [...] Indications: Depression affecting in third trimester, antepartum ([facility]) Take 2.5 tablets (25 mg) by mouth [...] Every 8 hours PRN, anxiety, Starting on Sun02/09/25 at 0527 hyoscyamine sulfate 0.125 mg oral [...] gestational diabetes mellitus (GDM) in second trimester ([facility]) Use 1, up to 5 times a [...] 02-13-2025 Start: 02-08-2025 End: 02-08-2025 Starting on 02/08/25 at 19 12, For 1 dose, Created [...] magnesium) tablet Indications: Headache in , antepartum ([facility]) Take 0.5 tablets (200 mg) by mouth 2 times a day as needed (Headache). 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 1 Can 09/13/2018 Active miSOPROStol 0.2 mg oral [...] administration. Start: 02-16-2025 take 1 capsule by [facility] once as needed 10 mg, oral, [...] by mouth daily Active polyethylene glycol 3350 92225 mg powder for oral solution (2 sources) Osmotic Laxative Start: 02-13-2025 Start: 12-23-2024 Jszthebc-Bhy-Wj-FA ( 1 + IRON PO) (1 source) Zbxrndea-Sbo-Az-FA ( 1 + IRON PO) Take 1 [...] by mouth once daily. 30 tablet 11 03/03/2025 05/13/2025 Discontinued (Reorder) 10 ml tranexamic [...] Yes Start: 02-15-2025 take 3 tablets by [facility] every six hours for pain acetaminophen (Tylenol) 325 mg tablet Indications: care following vaginal delivery ([facility]) Take 3 tablets (975 mg) by mouth [...] Opioid Agonist Start: 11-17-2023 End: 03-03-2025 HYDROcodone-acetaminophen (Bayard) 5-325 mg tablet Take by mouth. 11/17/2023 [...] as needed, resuscitation, Starting on Sun02/11/25 at 2025, For 1 dose, Pre-Delivery Start: 02-08-2025 End: 02-13-2025 take 75 mL intravenously every hour 75 mL/hr, intravenous, Continuous, Starting on Sun02/12/25 at 1530, For 1 day Start: 01-15-2025 [...] Administ er over 2 Minutes, Once, On Sun02/08/25 at 1930, For 1 dose, Give IV [...] than or equal to 160., Starting on 02/08/25 at 1937, For 1 day, For hourly blood glucose less than or equal to 160. Start: 12-23-2024 12.5 g, intrav enous, Every 15 min PRN, For blood glucose 41 to 70 mg/dL, Starting on 12/23/24 at 1819, May repeat until blood glucose [...] gestational diabetes mellitus (GDM) in second trimester ([facility]) Inject 40 units twice daily. 24 mL 1 03/09/2025 Active Start: 03-01-2025 inject 40 [IU] by gandara bcutaneous injection once daily insulin glargine (Lantus) 100 unit/mL (3 mL) pen Indications: Insulin controlled gestational diabetes mellitus (GDM) in second trimester ([facility]) Inject 40 Units under the skin once [...] gestational diabetes mellitus (GDM) in second trimester ([facility]) Inject 40 units in the morning and 50 units at night. May increase to 150 units total per day during as needed. 45 mL 3 01/06/2025 02/15/2025 Discontinued (Stop Taking at Discharge) Start: 01-01-2025 End: 01-01-2025 insulin NPH, Isophane, (Rodrigo CHARLENE N FlexPen) 100 unit/mL (3 mL) injection Indications: Insulin controlled gestational diabetes mellitus (GDM) in second trimester ([facility]) Inject 30 units in the morning and 40 units at night. May increase to 100 units total per day during as needed. 30 mL 3 01/01/2025 Active Start: 12-25-2024 End: 01-01-2025 insulin NPH, Isophane, (Rodrigo CHARLENE N FlexPen) 100 unit/mL (3 mL) injection Indications: Insulin controlled gestational diabetes mellitus (GDM) in second trimester ([facility]) Inject 20 units in the morning and 30 units at night. May increase to 50 units total per day during as needed. 15 mL 3 12/25/2024 12:13 PM EST 12/25/2024 01/01/2025 Discontinued Start: 12-25-2024 inject 20 [IU] by gandara bcutaneous injection every twenty-four hours 20 Units, subcutaneous, Every 24 hours scheduled, First dose on Sis 12/25/24 at 0700 Start: 12-24-2024 30 Units, subc [...] gestational diabetes mellitus (GDM) in second trimester ([facility]) Inject 10 Units under the skin 3 [...] gestational diabetes mellitus (GDM) in second trimester ([facility]) Inject 25 units with each meal. May increase to 150 units total per day during as needed. 45 mL 3 01/29/2025 02/15/2025 Discontinued (Stop Taking at Discharge) Start: 01-06-2025 insulin lispro (HumaLOG KwikPen Insulin) 100 unit/mL pen Indications: Insulin controlled gestational diabetes mellitus (GDM) in second trimester ([facility]) Inject 25 units with each meal. May increase to 150 units total per day during as needed. 45 mL 3 01/06/2025 Active Start: 01-01-2025 End: 01-01-2025 insulin lispro (HumaLOG Kwik Pen Insulin) 100 unit/mL injection Indications: Insulin controlled gestational diabetes mellitus (GDM) in second trimester ([facility]) Inject 15-20 units with each meal. May increase to 100 units total per day during as needed. 30 mL 3 01/01/2025 Active Start: 12-25-2024 End: 01-01-2025 insulin lispro (HumaLOG Kwik Pen Insulin) 100 unit/mL injection Indications: Insulin controlled gestational diabetes mellitus (GDM) in second trimester ([facility]) Inject 10 units with each meal. May [...] Start: 07-31-2018 take 25 mg rectal ro ngoc every eight hours as needed promethazine 25 MG Suppository suppository Insert 1 suppository rectally every 8 hours as needed for Nausea / Vomiting (Nausea/Vomiting). 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 Attention-deficit, conduct, and disruptive behavior disorders (1 source) Attention-deficit hyperactivity disorder, unspecified type; Translations: [Attention-deficit hyperactivity disorder, unspecified type] Onset: 5 Chronic Contraceptive and procreative management (6 sources) Contraception ; Translations: [Patient encounter status] Onset: 8 Resolved: 5 03-11-2025 Episodic Deficiency and other anemia (4 sources) Anemia; Translations: [Anemia, unspecified] Onset: 5 03-03-2025 Episodic Diabetes mellitus without complication (4 sources) [...] hypertension] Onset: 6 Resolved: 7 10-22-2017 Chronic Intestinal infection (1 source) Shigellosis, unspecified; Translations: [Shigellosis, unspecified] Onset: 9 Episodic Menstrual disorders (2 sources) Amenorrhea; Translations: [Dysmenorrhea, unspecified] Onset: 3 [...] deficiency, unspecified] Onset: 5 10-10-2017 Chronic Other complications of (3 sources) Maternal obesity [...] Translations: [Abnormal weight gain] 03-03-2025 Episodic Other screening for suspected conditions (not mental disorders or infectious disease) (4 sources) Encounter for other specified screening; Translations: [Encounter for screening for nuchal translucency] Onset: 8 [place]-; endo-; and myocarditis; cardiomyopathy (except that caused by tuberculosis or sexually transmitted disease) (11 sources) Pericardial effusion; Translations: [Pericardial effusion] 10-22-2022 Episodic Regional enteritis and ulcerative colitis (20 [...] 8 Unclassified (1 source) Non-stress Test / [id number]() Onset: 8 Unclassified (1 source) Chest pain, [...] lung, unilateral, initial encounter] Onset: 2 Episodic Deficiency and other anemia (2 sources) Anemia, unspecified; Translations: [Anemia, unspecified] Onset: 5 Episodic Diabetes or abnormal glucose tolerance complicating [...] trimester] Onset: 6 Resolved: 5 10-22-2017 Episodic Hypertension complicating ; childbirth and the puerperium (20 sources) Severe pre-eclampsia; Translations: [Severe pre-eclampsia, unspecified trimester] Onset: 7 Resolved: 5 10-22-2017 Episodic Inflammatory diseases of female pelvic organs (3 sources) Vulvovaginitis; Translations: [Vulvovaginitis] Onset: 5 Resolved: 7 09-01-2015 Episodic Intracranial injury (1 source) Concussion without loss of consciousness, initial encounter; Translations: [Concussion without loss of consciousness, initial encounter] Onset: 4 Episodic Malaise and fatigue (10 sources) Asthenia; Translations: [Weakness] Onset: 5 09-13-2023 Episodic Miscellaneous mental health disorders (2 sources) [...] 5 09-01-2015 Episodic Other aftercare (2 sources) 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; Translations: [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 (current) use of 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] Onset: 7 Episodic Other aftercare (2 sources) 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; Translations: [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 (current) use of insulin (Multi)] Onset: 5 Episodic Other circulatory disease (1 source) Hypotension, [...] reproductive or obstetric history, unspecified trimester] Onset: Resolved: 5 01-01-2025 Episodic Other complications of (13 sources) Previous operation to cervix affecting ; Translations: [Maternal care for other abnormalities of cervix, second trimester] Onset: Resolved: 5 01-08-2025 Episodic Other complications of (2 sources) Other mental disorders complicating , third trimester; Translations: [Other mental disorders complicating , third trimester] Onset: 5 Episodic Other complications of (2 sources) Other mental disorders complicating , second trimester; Translations: [Other mental disorders complicating , second trimester (HHS-HCC)] Onset: 5 Episodic Other complications of (2 sources) Other specified related conditions, third trimester; Translations: [Other specified related conditions, third trimester (HHS-HCC)] Onset: 5 Episodic Other complications of (2 sources) Other specified related conditions, second trimester; Translations: [Other specified related conditions, second trimester (HHS-HCC)] Onset: 5 Episodic Other complications of (2 sources) Maternal care for other abnormalities of cervix, second trimester; Translations: [Maternal care for other abnormalities of cervix, second trimester (HHS-HCC)] Onset: 5 Episodic Other complications of (2 sources) Other specified related conditions, unspecified trimester; Translations: [Other specified related conditions, unspecified trimester (HHS-HCC)] Onset: 5 Episodic Other complications of (4 sources) Supervision of elderly multigravida, unspecified trimester; Translations: [Supervision of elderly multigravida, unspecified trimester (HHS-HCC)] Onset: 5 Episodic Other complications of (1 [...] Onset: 5 Resolved: 6 12-27-2015 Episodic Other nutritional; endocrine; and metabolic disorders [...] Resolved: 5 02-11-2025 Episodic Residual codes; unclassified (1 source) 32 weeks gestation of ; Translations: [32 weeks gestation of ([facility])] Onset: Episodic Residual codes; unclassified (1 source) 30 weeks gestation of ; Translations: [30 weeks gestation of ([facility])] Onset: 5 Episodic Residual codes; unclassified (2 sources) 29 weeks gestation of ; Translations: [29 weeks gestation of ([facility])] Onset: 5 Episodic Residual codes; unclassified (1 source) 28 weeks gestation of ; Translations: [28 weeks gestation of ([facility])] Onset: 5 Episodic Residual codes; unclassified (3 sources) Other specified postprocedural states; Translations: [Other specified postprocedural states] Onset: 5 Episodic Residual codes; unclassified (1 source) 27 weeks gestation of ; Translations: [27 weeks gestation of ([facility])] Onset: 5 Episodic Residual codes; unclassified (1 source) 26 weeks gestation of ; Translations: [26 weeks gestation of ([facility])] Onset: 5 Episodic Residual codes; unclassified (1 [...] Name Value Interpretation Reference Range Facility MR/BMS.BPon 06-21-2025 MR/BMS.BP Normal [facility] MR/BMS.BPon 06-11-2025 MR/BMS.BP Normal [facility] Abdomen/Pelvis W IV Cont ONL Yon 06-04-2025 Abdomen/Pelvis W IV Cont ONLY Normal [facility] CBC W/Diff, Automatedon 05-07 Absolute Lymph 2.71 X10 3/uL Normal 0.83-4.51 [facility] Comment on above: Performed By: #### L 100.0100, L500.4050 ####[facility] [address] [place], [place], [id number] Absolute Neut 6.2 X10 3/uL Normal 2.0-7.7 [facility] Comment on above: Performed By: #### L 100.0100, L500.4050 ####[facility] [address] [place], [address] Basophils/100 WBC (Bld) 0.5 % Normal 0-1 [facility] Comment on above: Performed By: #### L 100.0100, L500.4050 ####[facility] [address] [place], [address] Eosinophils/100 WBC (Bld) 0.0 % Normal 0-5 [facility] Comment on above: Performed By: #### L 100.0100, L500.4050 ####[facility] [address] [place], [address] Erythrocyte distribution width (RBC) [Ratio] 15.8 % High 11.6-14.6 [facility] Comment on above: Performed By: #### L 100.0100, L500.4050 ####[facility] [address] [place], [address] Hematocrit (Bld) [Volume fraction] 36.4 % Low 37-47 [facility] Comment on above: Performed By: #### L 100.0100, L500.4050 ####[facility] [address] [place], [address] Hemoglobin (Bld) [Mass/Vol] 11.8 g/dL Low 12.0-15.0 [facility] Comment on above: Performed By: #### L 100.0100, L500.4050 ####[facility] [address] [place], [address] IG% 0.300 Normal 0.0-0.9 [facility] Comment on above: Result Comment: IG% - Immature Granulocytes (promyelocytes, myelocytes andmetamyelocytes) > 1% indicates that a LEFT SHIFT is Present. Performed By: #### L 100.0100, L500.4050 ####[facility] [address] [place], [address] Lymphocytes/100 WBC (Bld) 28.6 % Normal 19-41 [facility] Comment on above: Performed By: #### L 100.0100, L500.4050 ####[facility] [address] [place], [address] MCH (RBC) [Entitic mass] 25.5 pg Low 27.0-32.0 [facility] Comment on above: Performed By: #### L 100.0100, L500.4050 ####[facility] [address] [place], [address] MCHC (RBC) [Mass/Vol] 32.4 g/dL Normal 32-36 [facility] Comment on above: Performed By: #### L 100.0100, L500.4050 ####[facility] [address] [place], [address] MCV (RBC) [Entitic vol] 78.8 fL Low 81-99 [facility] Comment on above: Performed By: #### L 100.0100, L500.4050 ####[facility] [address] [place], [address] Monocytes/100 WBC (Bld) 5.7 % Normal 0-10 [facility] Comment on above: Performed By: #### L 100.0100, L500.4050 ####[facility] [address] [place], [address] Neutrophils/100 WBC (Bld) 64.9 % Normal 47-70 [facility] Comment on above: Performed By: #### L 100.0100, L500.4050 ####[facility] [address] [place], [address] Nucleated RBC (Bld) [#/Vol] 0 10*3/uL Normal 0-5 [facility] Comment on above: Performed By: #### L 100.0100, L500.4050 ####[facility] [address] [place], [address] Platelet mean volume (Bld) [Entitic vol] 10.3 fL Normal 6.2-12.0 [facility] Comment on above: Performed By: #### L 100.0100, L500.4050 ####[facility] [address] [place], [address] Platelets (Bld) [#/Vol] 283 10*3/uL Normal 150-450 [facility] Comment on above: Performed By: #### L 100.0100, L500.4050 ####[facility] [address] [place], [address] RBC (Bld) [#/Vol] 4.62 10*6/uL Normal 4.2-5.4 [facility] Comment on above: Performed By: #### L 100.0100, L500.4050 ####[facility] [address] [place], [address] RDW SD 44.4 fl High 35.1-43.9 [facility] Comment on above: Performed By: #### L 100.0100, L500.4050 ####[facility] [address] [place], [address] WBC (Bld) [#/Vol] 9.5 10*3/uL Normal 4.4-11.0 [facility] Comment on above: Performed By: #### L 100.0100, L500.4050 ####[facility] [address] [place], [address] Comprehensive Metabolic Prof [facility] 06-04-2025 Albumin [Mass/Vol] 4.1 g/dL Normal 3.5-5.0 [facility] Comment on above: Performed By: #### L 100.0100, L500.4050 ####[facility] [address] [place], [address] Albumin/Globulin [Mass ratio] 1.3 {ratio} Normal 0.9-2.4 [facility] Comment on above: Performed By: #### L 100.0100, L500.4050 ####[facility] [address] [place], [address] ALK PHOS 99 U/L Normal 35-104 [facility] Comment on above: Performed By: #### L 100.0100, L500.4050 ####[facility] [address] [place], [address] ALT [Catalytic activity/Vol] 24 U/L Normal <=34 [facility] Comment on above: Performed By: #### L 100.0100, L500.4050 ####[facility] [address] [place], [address] AST [Catalytic activity/Vol] 22 U/L Normal <=31 [facility] Comment on above: Performed By: #### L 100.0100, L500.4050 ####[facility] [address] [place], [address] Bilirubin [Mass/Vol] 0.53 mg/dL Normal 0.00-1.30 [facility] Comment on above: Performed By: #### L 100.0100, L500.4050 ####[facility] [address] [place], [address] BUN/CRE 12.3 RATIO Normal 10-20 [facility] Comment on above: Performed By: #### L 100.0100, L500.4050 ####[facility] [address] [place], [address] Calcium [Mass/Vol] 9.0 mg/dL Normal 7.6-11.0 [facility] Comment on above: Performed By: #### L 100.0100, L500.4050 ####[facility] [address] [place], [address] Chloride [Moles/Vol] 107 mmol/L Normal 98-108 [facility] Comment on above: Performed By: #### L 100.0100, L500.4050 ####[facility] [address] [place], [address] CO2 [Moles/Vol] 19.0 mmol/L Low 21.0-32.0 [facility] Comment on above: Performed By: #### L 100.0100, L500.4050 ####[facility] [address] [place], [address] Creatinine [Mass/Vol] 0.77 mg/dL Normal 0.70-1.20 [facility] Comment on above: Performed By: #### L 100.0100, L500.4050 ####[facility] [address] [place], [address] ECRCL 145.30 ml/min Normal 50-250 [facility] Comment on above: Performed By: #### L 100.0100, L500.4050 ####[facility] [address] [place], [address] GAP 13 Normal 5-15 [facility] Comment on above: Performed By: #### L 100.0100, L500.4050 ####[facility] [address] [place], [address] GFR/1.73 sq M.predicted among non-blacks MDRD (S/P/Bld) [Vol rate/Area] 104 mL/min/{1.73_m2} Normal >60 [facility] Comment on above: Result Comment: mL/m in/1.73m2 CKD-EPI Creatinine Equation (2020) Performed By: #### L 100.0100, L500.4050 ####[facility] [address] [place], [address] Globulin (S) [Mass/Vol] 3.2 g/dL Normal 2.2-4.2 [facility] Comment on above: Performed By: #### L 100.0100, L500.4050 ####[facility] [address] [place], [address] Glucose [Mass/Vol] 107 mg/dL High 70-99 [facility] Comment on above: Performed By: #### L 100.0100, L500.4050 ####[facility] [address] [place], [address] Potassium [Moles/Vol] 3.7 mmol/L Normal 3.3-5.1 [facility] Comment on above: Performed By: #### L 100.0100, L500.4050 ####[facility] [address] [place], [address] Sodium [Moles/Vol] 139 mmol/L Normal 133-145 [facility] Comment on above: Performed By: #### L 100.0100, L500.4050 ####[facility] [address] [place], [address] T PROT 7.3 g/dL Normal 5.9-8.4 [facility] Comment on above: Performed By: #### L 100.0100, L500.4050 ####[facility] [address] [place], [address] Urea nitrogen [Mass/Vol] 9 mg/dL Normal 4-19 [facility] Comment on above: Performed By: #### L 100.0100, L500.4050 ####[facility] [address] [place], [address] Emergency Department Summary on 06-04-2025 Emergency Department Summary Normal [facility] ,Urineon 06-04-2025 Beta HCG ( test) Ql (U) Negative Normal [facility] Comment on above: Result Comment: Very dilute urine specimens, as indicated by a low specificgravity, may not contain public health representative levels of hCG.If is still suspected, a first morning urinespecimen should be collected 48 hours later and tested. Performed By: #### L 400.7600, L400.0001 ####[facility] [address] [place], [address] Urinalysis, Completeon 06-04 WBC 0-5 SEEN Normal 0-5 [facility] Comment on above: Order Comment: CLEAN CATCH Performed By: #### L 400.7600, L400.0001 ####[facility] [address] [place], [address] BACTERIA 0 SEEN Normal None Seen [facility] Comment on above: Order Comment: CLEAN CATCH Performed By: #### L 400.7600, L400.0001 ####[facility] [address] [place], [address] EPI,SQUAMOUS 0 SEEN Normal 5-10 [facility] Comment on above: Order Comment: CLEAN CATCH Performed By: #### L 400.7600, L400.0001 ####[facility] [address] [place], [address] Mucus Ql (Urine sed) 0 SEEN Normal [facility] Comment on above: Order Comment: CLEAN CATCH Performed By: #### L 400.7600, L400.0001 ####[facility] [address] [place], [address] RBC 0 SEEN Normal 0-5 [facility] Comment on above: Order Comment: CLEAN CATCH Performed By: #### L 400.7600, L400.0001 ####[facility] [address] [place], [address] MR/BMS.BPon 06-02-2025 MR/BMS.BP Normal [facility] Acute Abdomen Inc Cheston Acute Abdomen Inc Chest Normal [facility] Basic Metabolic Profile (BMP )on 05-20-2025 BUN/CRE 15.1 RATIO Normal 10-20 [facility] Comment on above: Performed By: #### L 500.3400, L501.2450, L500.2500, L100.0100 ####[facility] [address] [place], [address] Calcium [Mass/Vol] 9.3 mg/dL Normal 7.6-11.0 [facility] Comment on above: Performed By: #### L 500.3400, L501.2450, L500.2500, L100.0100 ####[facility] [address] [place], [address] Chloride [Moles/Vol] 103 mmol/L Normal 98-108 [facility] Comment on above: Performed By: #### L 500.3400, L501.2450, L500.2500, L100.0100 ####[facility] [address] [place], [address] CO2 [Moles/Vol] 20.0 mmol/L Low 21.0-32.0 [facility] Comment on above: Performed By: #### L 500.3400, L501.2450, L500.2500, L100.0100 ####[facility] [address] [place], [address] Creatinine [Mass/Vol] 0.80 mg/dL Normal 0.70-1.20 [facility] Comment on above: Performed By: #### L 500.3400, L501.2450, L500.2500, L100.0100 ####[facility] [address] [place], [address] ECRCL 137.75 ml/min Normal 50-250 [facility] Comment on above: Performed By: #### L 500.3400, L501.2450, L500.2500, L100.0100 ####[facility] [address] [place], [address] GAP 13 Normal 5-15 [facility] Comment on above: Performed By: #### L 500.3400, L501.2450, L500.2500, L100.0100 ####[facility] [address] [place], [address] GFR/1.73 sq M.predicted among non-blacks MDRD (S/P/Bld) [Vol rate/Area] 98 mL/min/{1.73_m2} Normal >60 [facility] Comment on above: Result Comment: mL/m in/1.73m2 CKD-EPI Creatinine Equation (2020) Performed By: #### L 500.3400, L501.2450, L500.2500, L100.0100 ####[facility] [address] [place], [address] Glucose [Mass/Vol] 72 mg/dL Normal 70-99 [facility] Comment on above: Performed By: #### L 500.3400, L501.2450, L500.2500, L100.0100 ####[facility] [address] [place], [address] Potassium [Moles/Vol] 3.9 mmol/L Normal 3.3-5.1 [facility] Comment on above: Result Comment: Hemo lysis present, Results??could be affected.?? Performed By: #### L 500.3400, L501.2450, L500.2500, L100.0100 ####[facility] [address] [place], [address] Sodium [Moles/Vol] 136 mmol/L Normal 133-145 [facility] Comment on above: Performed By: #### L 500.3400, L501.2450, L500.2500, L100.0100 ####[facility] [address] [place], [address] Urea nitrogen [Mass/Vol] 12 mg/dL Normal 4-19 [facility] Comment on above: Performed By: #### L 500.3400, L501.2450, L500.2500, L100.0100 ####[facility] [address] [place], [address] CBC W/Diff, Automatedon 05-05 Platelets (Bld) [#/Vol] 310 10*3/uL Normal 150-450 [facility] Comment on above: Performed By: #### L 500.3400, L501.2450, L500.2500, L100.0100 ####[facility] [address] [place], [address] Emergency Department Summary on 05-20-2025 Emergency Department Summary Normal [facility] Lipaseon 05-20-2025 Lipase [Catalytic activity/Vol] 23 U/L Normal 13-75 [facility] Comment on above: Result Comment: Anna Marie willard note:LIPASE revised reference range effective 23.New Lipase methodology. Expected to produce lower valuesthan the previous assay method.NEW Reference Range: 13 - 75 U/L Performed By: #### L 500.3400, L501.2450, L500.2500, L100.0100 ####[facility] [address] [place], [address] Liver Profileon 05-20-2025 Albumin [Mass/Vol] 4.3 g/dL Normal 3.5-5.0 [facility] Comment on above: Performed By: #### L 500.3400, L501.2450, L500.2500, L100.0100 ####[facility] [address] [place], [address] ALK PHOS 104 U/L Normal 35-104 [facility] Comment on above: Performed By: #### L 500.3400, L501.2450, L500.2500, L100.0100 ####[facility] [address] [place], [address] ALT [Catalytic activity/Vol] 29 U/L Normal <=34 [facility] Comment on above: Performed By: #### L 500.3400, L501.2450, L500.2500, L100.0100 ####[facility] [address] [place], [address] AST [Catalytic activity/Vol] 34 U/L High <=31 [facility] Comment on above: Result Comment: Hemo lysis present, Results??could be affected.?? Performed By: #### L 500.3400, L501.2450, L500.2500, L100.0100 ####[facility] [address] [place], [address] Bilirubin [Mass/Vol] 0.81 mg/dL Normal 0.00-1.30 [facility] Comment on above: Performed By: #### L 500.3400, L501.2450, L500.2500, L100.0100 ####[facility] [address] [place], [address] Bilirubin.direct [Mass/Vol] 0.20 mg/dL Normal 0.00-0.30 [facility] Comment on above: Result Comment: Hemo lysis present, Results??could be affected.?? Performed By: #### L 500.3400, L501.2450, L500.2500, L100.0100 ####[facility] [address] [place], [address] Globulin (S) [Mass/Vol] 3.6 g/dL Normal 2.2-4.2 [facility] Comment on above: Performed By: #### L 500.3400, L501.2450, L500.2500, L100.0100 ####[facility] [address] [place], [address] T PROT 7.9 g/dL Normal 5.9-8.4 [facility] Comment on above: Performed By: #### L 500.3400, L501.2450, L500.2500, L100.0100 ####[facility] [address] [place], [address] ,Serum,hCG Quali.on 05-20-2025 HCG, SERUM QUAL Negative Normal [facility] Comment on above: Performed By: #### L 700.6800 ####[facility] [address] [place], [address] MR/BMS.BPon 04-30-2025 MR/BMS.BP Normal [facility] MR/BMS.BPon 04-24-2025 MR/BMS.BP Normal [facility] MR/BMS.BPon 04-14-2025 MR/BMS.BP Normal [facility] MR/BMS.BPon 04-07-2025 MR/BMS.BP Normal [facility] MR/BMS.BPon 04-02-2025 MR/BMS.BP Normal [facility] MR/BMS.BPon 03-24-2025 MR/BMS.BP Normal [facility] MR/BMS.BPon 03-18-2025 MR/BMS.BP Normal [facility] BASIC METABOLIC PANEL WITH A NION GAP03-11-2025 BUN/CREATININE RATIO SEE NOTE: Normal 6-22 [facility] Comment on above: Order Comment: FASTI NG:NO FASTING: NO Result Comment: Not Reported: BUN and Creatinine are within reference range. Performed By: #### 9 2278 #### [facility] [address], [address] [place] [address] Procurement Inspector: Salvador Swanson MD Calcium [Mass/Vol] 8.9 mg/dL Normal 8.6-10.2 [facility] Comment on above: Order Comment: FASTI NG:NO FASTING: NO Performed By: #### 9 1308 #### [facility] of [address], [address] [place] [address] Procurement Inspector: Salvador Swanson MD Chloride [Moles/Vol] 107 mmol/L Normal 98-110 [facility] Comment on above: Order Comment: FASTI NG:NO FASTING: NO Performed By: #### 9 3578 #### [facility] [address], [address] [place] [address] Procurement Inspector: Salvador Swanson MD CO2 [Moles/Vol] 22 mmol/L Normal 20-32 [facility] Comment on above: Order Comment: FASTI NG:NO FASTING: NO Performed By: #### 9 6738 #### [facility] [place] [address] Procurement Inspector: Salvador Swanson MD Creatinine [Mass/Vol] 0.71 mg/dL Normal 0.50-0.97 [facility] Comment on above: Order Comment: FASTI NG:NO FASTING: NO Performed By: #### 9 4728 #### [facility] [address], [address] [place] [address] Procurement Inspector: Salvador Swanson MD ELECTROLYTE BALANCE 13 mmol/L (calc) Normal 7-17 [facility] Comment on above: Order Comment: FASTI NG:NO FASTING: NO Performed By: #### 9 3248 #### [facility] [place] [address] Procurement Inspector: Salvador Swanson MD GFR/1.73 sq M.predicted among non-blacks MDRD (S/P/Bld) [Vol rate/Area] 113 mL/min/{1.73_m2} Normal > OR = 60 [facility] Comment on above: Order Comment: FASTI NG:NO FASTING: NO Performed By: #### 9 8392 #### [facility] of [address], [address] [place] [address] Procurement Inspector: Salvador Swanson MD Glucose [Mass/Vol] 77 mg/dL Normal 65-139 [facility] Comment on above: Order Comment: FASTI NG:NO FASTING: NO Result Comment: Non-fasting reference interval Performed By: #### 9 2498 #### [facility] [address], [address] [place] [address] Procurement Inspector: Salvador Swanson MD Potassium [Moles/Vol] 3.9 mmol/L Normal 3.5-5.3 [facility] Comment on above: Order Comment: FASTI NG:NO FASTING: NO Performed By: #### 9 2498 #### [facility] [address], [address] [place] [address] Procurement Inspector: Salvador Swanson MD Sodium [Moles/Vol] 142 mmol/L Normal 135-146 [facility] Comment on above: Order Comment: FASTI NG:NO FASTING: NO Performed By: #### 9 2498 #### [facility] [address], [address] [place] [address] Procurement Inspector: Salvador Swanson MD Urea nitrogen [Mass/Vol] 8 mg/dL Normal 7-25 [facility] Comment on above: Order Comment: FASTI NG:NO FASTING: NO Performed By: #### 9 2498 #### [facility] [address], [address] [place] [address] Procurement Inspector: Salvador Swanson MD Basic metabolic 2000 panelon 03-11-2025 Anion gap [Moles/Vol] 13 mmol/L [facility] Calcium [Mass/Vol] 8.9 mg/dL 8.6 - 10. 2 mg/dL [facility] Chloride [Moles/Vol] 107 mmol/L 98 - 11 0 mmol/L [facility] CO2 [Moles/Vol] 22 mmol/L 20 - 32 mmol/L [facility] Creatinine [Mass/Vol] 0.71 mg/dL 0.50 - 0.97 mg/dL [facility] GFR/1.73 sq M.predicted among non-blacks MDRD (S/P/Bld) [Vol rate/Area] 113 mL/min/{1.73_m2} > OR = 60 mL/min/1.73m 2 [facility] Glucose [Mass/Vol] 77 mg/dL 65 - 139 mg/dL [facility] Comment on above: Non-fasting reference interval Potassium [Moles/Vol] 3.9 mmol/L 3.5 - 5.3 mmol/L [facility] Sodium [Moles/Vol] 142 mmol/L 135 - 146 mmol/L [facility] Urea nitrogen [Mass/Vol] 8 mg/dL 7 - 25 mg/dL [facility] Urea nitrogen/Creatinine [Mass ratio] SEE NOTE: [facility] Comment on above: Not Reported: BUN an d Creatinine are within reference range. FASTING:NO FASTING: NO [facility] Gl[facility] Test strip manual (B ld) [Mass/Vol]on 03-10-2025 Glucose [Mass/Vol] 123 mg/dL High 74 - 99 mg/dL [facility] Interpretation and review of laboratory results Abnormal [facility] Glucose [Mass/Vol] 123 mg/dL High 74-99 [facility] Comment on above: Performed By: #### 2 7298-9 #### QUIN Simon ([id number]) [facility] [address] [place] [address] CBC (INCLUDES DIFF/PLT)on Basophils (Bld) [#/Vol] 0.053 10*3/uL Normal 0-200 [facility] Comment on above: Performed By: #### 7 600, 622, 6399, 42853, 82663 #### [facility] [address], [address] [place] [address] Procurement Inspector: Salvador Swanson MD #### 945 #### [facility] [address] [facility] [place] [address] Procurement Inspector: Yaya Alvarez M.D.,PhD Basophils/100 WBC (Bld) 0.6 % Normal [facility] Comment on above: Performed By: #### 7 600, 622, 6399, 23940, 12314 #### [facility] [address], [address] [place], [place] [id number] Procurement Inspector: Salvador Swanson MD #### 945 #### [facility]/[place] [id number] [facility] [place] Procurement Inspector: Yaya Alvarez M.D.,PhD Eosinophils (Bld) [#/Vol] 0.365 10*3/uL Normal 15-500 [facility] Comment on above: Performed By: #### 7 600, 622, 6399, 11840, 29856 #### [facility] of [place] [address], [address] [place] [address] Procurement Inspector: Salvador Swanson MD #### 945 #### [facility]/[place] [id number] [facility] [place] Procurement Inspector: Yaya Alvarez M.D.,PhD Eosinophils/100 WBC (Bld) 4.1 % Normal [facility] Comment on above: Performed By: #### 7 600, 622, 6399, 02765, 29611 #### [facility] of [place] [address] , [address] [place], [place] [id number] Procurement Inspector: Salvador Swanson MD #### 945 #### [facility]/[place] [address] [facility] [place] Procurement Inspector: Yaya Alvarez M.D.,PhD Erythrocyte distribution width (RBC) [Ratio] 13.0 % Normal 11.0-15.0 [facility] Comment on above: Performed By: #### 7 600, 622, 6399, 29500, 12723 #### [facility] of [place] [address] [address] , [address] [place], [place] [id number] Procurement Inspector: Salvador Swanson MD #### 945 #### [facility] [place] Procurement Inspector: Yaya Alvarez M.D.,PhD Hematocrit (Bld) [Volume fraction] 37.1 % Normal 35.0-45.0 [facility] Comment on above: Performed By: #### 7 600, 622, 6399, 72080, 54296 #### [facility] of [address], [address] [place], [place] [id number] Procurement Inspector: Salvador Swanson MD #### 945 #### [facility]/[address] [place], [place] Procurement Inspector: Yaya Alvarez M.D.,PhD Hemoglobin (Bld) [Mass/Vol] 11.8 g/dL Normal 11.7-15.5 [facility] Comment on above: Performed By: #### 7 600, 622, 6399, 67370, 41797 #### [facility] of [address], [address] [place], [place] [address] Procurement Inspector: Salvador Swanson MD #### 945 #### [facility]/[address] [place], [place] Procurement Inspector: Yaya Alvarez M.D.,PhD Lymphocytes (Bld) [#/Vol] 2.243 10*3/uL Normal 850-3900 [facility] Comment on above: Performed By: #### 7 600, 622, 6399, 56479, 09846 #### [facility] of [address], [address] [place], [place] [address] Procurement Inspector: Salvador Swanson MD #### 945 #### [facility]/[address] [place] Procurement Inspector: Yaya Alvarez M.D.,PhD Lymphocytes/100 WBC (Bld) 25.2 % Normal [facility] Comment on above: Performed By: #### 7 600, 622, 6399, 10324, 10808 #### [facility] of [address], [address] [place], [place] [address] Procurement Inspector: Salvador Swanson MD #### 945 #### [facility] [address] [place] Procurement Inspector: Yaya Alvarez M.D.,PhD MCH (RBC) [Entitic mass] 26.9 pg Low 27.0-33.0 [facility] Comment on above: Performed By: #### 7 600, 622, 6399, 67992, 81217 #### [facility] [place] [address] Procurement Inspector: Salvador Swanson MD #### 945 #### [facility] [address] [place] Procurement Inspector: Yaya Alvarez M.D.,PhD MCHC (RBC) [Mass/Vol] 31.8 [...] Performed By: #### 7 600, 622, 6399, 72395, 55069 #### [facility] [place] [address] Procurement Inspector: Salvador Swanson MD #### 945 #### [facility] [place] Procurement Inspector: Yaya Alvarez M.D.,PhD MCV (RBC) [Entitic vol] 84.7 fL Normal 80.0-100.0 [facility] Comment on above: Performed By: #### 7 600, 622, 6399, 81562, 75689 #### [facility] [place] [id number] Procurement Inspector: Salvador Swanson MD #### 945 #### [facility] [address] [place] Procurement Inspector: Yaya Alvarez M.D.,PhD Monocytes (Bld) [#/Vol] 0.481 10*3/uL Normal 200-950 [facility] Comment on above: Performed By: #### 7 600, 622, 6399, 52538, 24402 #### [facility] of [facility] [address] , [address] [place], [place] [phone] Procurement Inspector: Salvador Swanson MD #### 945 #### [facility]/[address] [place] Procurement Inspector: Yaya Alvarez M.D.,PhD Monocytes/100 WBC (Bld) 5.4 % Normal [facility] Comment on above: Performed By: #### 7 600, 622, 6399, 95212, 92502 #### [facility] of [address] , [address] [place] [address] Procurement Inspector: Salvador Swanson MD #### 945 #### [facility]/[address] [place] Procurement Inspector: Yaya Alvaerz M.D.,PhD Neutrophils (Bld) [#/Vol] 5.758 10*3/uL Normal 4949-4687 [facility] Comment on above: Performed By: #### 7 600, 622, 6399, 28280, 27049 #### [facility] of [place] [address], [address] [place] [address] Procurement Inspector: Salvador Swanson MD #### 945 #### [facility]/[place] [id number] [facility] [address] [place] Procurement Inspector: Yaya Alvarez M.D.,PhD Neutrophils/100 WBC (Bld) 64.7 % Normal [facility] Comment on above: Performed By: #### 7 600, 622, 6399, 83526, 98370 #### [facility] of [place] [address] [address] , [address] [place], [place] [phone] Procurement Inspector: Salvador Swanson MD #### 945 #### [facility]/[place] [id number] [facility] [place] Procurement Inspector: Yaya Alvarez M.D.,PhD Platelet mean volume (Bld) [Entitic vol] 10.2 fL Normal 7.5-12.5 [facility] Comment on above: Performed By: #### 7 600, 622, 6399, 98554, 46916 #### [facility] of [place] [address], [address] [place], [place] [phone] Procurement Inspector: Salvador Swanson MD #### 945 #### [facility] [place] Procurement Inspector: Yaya Alvarez M.D.,PhD Platelets (Bld) [#/Vol] 392 10*3/uL Normal 140-400 [facility] Comment on above: Performed By: #### 7 600, 622, 6399, 69830, 72278 #### [facility] of [place] [address] [address] , [address] [place], [place] [phone] Procurement Inspector: Salvador Swanson MD #### 945 #### [facility] [place] Procurement Inspector: Yaya Alvarez M.D.,PhD RBC (Bld) [#/Vol] 4.38 10*6/uL Normal 3.80-5.10 [facility] Comment on above: Performed By: #### 7 600, 622, 6399, 54393, 34501 #### [facility] of [place] [address] [address] , [address] [place] [address] Procurement Inspector: Salvador Swanson MD #### 945 #### [facility] [address] [place] Procurement Inspector: Yaya Alvarez M.D.,PhD WBC (Bld) [#/Vol] 8.9 10*3/uL Normal 3.8-10.8 [facility] Comment on above: Performed By: #### 7 600, 622, 6399, 76882, 12447 #### [facility] of [address], [address] [place] [address] Procurement Inspector: Salvador Swanson MD #### 945 #### [facility]/[address] [place], [place] Procurement Inspector: Yaya Alvarez M.D.,PhD COMPREHENSIVE METABOLIC PANE L W/ANION GAPon 03-09-2025 Albumin [Mass/Vol] 4.0 g/dL Normal 3.6-5.1 [facility] Comment on above: Performed By: #### 7 600, 622, 6399, 78565, 05651 #### [facility] of [address], [address] [place], [place] [phone] Procurement Inspector: Salvador Swanson MD #### 945 #### [facility]/[address] [place] Procurement Inspector: Yaya Alvarez M.D.,PhD ALP [Catalytic activity/Vol] 98 U/L Normal 31-125 [facility] Comment on above: Performed By: #### 7 600, 622, 6399, 74732, 78017 #### [facility] of [address], [address] [place] [address] Procurement Inspector: Salvador Swanson MD #### 945 #### [facility]/[place] [address] [facility] [place] Procurement Inspector: Yaya Alvarez M.D.,PhD ALT [Catalytic activity/Vol] 16 U/L Normal 6-29 [facility] Comment on above: Performed By: #### 7 600, 622, 6399, 99307, 67559 #### [facility] of [address], [address] [place], [place] [phone] Procurement Inspector: Salvador Swanson MD #### 945 #### [facility] [address] [place] Procurement Inspector: Yaya Alvarez M.D.,PhD AST [Catalytic activity/Vol] 13 U/L Normal 10-30 [facility] Comment on above: Performed By: #### 7 600, 622, 6399, 00504, 04179 #### [facility] of [address], [address] [place], [place] [address] Procurement Inspector: Salvador Swanson MD #### 945 #### [facility]/[place] [address] [facility] [place] Procurement Inspector: Yaya Alvarez M.D.,PhD Bilirubin [Mass/Vol] 0.8 mg/dL Normal 0.2-1.2 [facility] Comment on above: Performed By: #### 7 600, 622, 6399, 82993, 10407 #### [facility] of [address], [address] [place], [place] [address] Procurement Inspector: Salvador Swanson MD #### 945 #### [facility]/[address] [place] Procurement Inspector: Yaya Alvarez M.D.,PhD Calcium [Mass/Vol] 9.1 mg/dL Normal 8.6-10.2 [facility] Comment on above: Performed By: #### 7 600, 622, 6399, 72247, 76703 #### [facility] of [address], [address] [place], [place] [address] Procurement Inspector: Salvador Swanson MD #### 945 #### [facility] [address] [place] Procurement Inspector: Yaya Alvarez M.D.,PhD Chloride [Moles/Vol] 103 mmol/L Normal 98-110 [facility] Comment on above: Performed By: #### 7 600, 622, 6399, 09889, 78174 #### [facility] of [address], [address] [place], [place] [address] Procurement Inspector: Salvador Swanson MD #### 945 #### [facility]/[place] [address] [facility] [address] [place] Procurement Inspector: Yaya Alvarez M.D.,PhD CO2 [Moles/Vol] 24 mmol/L Normal 20-32 [facility] Comment on above: Performed By: #### 7 600, 622, 6399, 34990, 92005 #### [facility] of [address], [address] [place], [place] [address] Procurement Inspector: Salvador Swanson MD #### 945 #### [facility]/[place] [address] [facility] [address] [place] Procurement Inspector: Yaya Alvarez M.D.,PhD Creatinine [Mass/Vol] 0.68 mg/dL Normal 0.50-0.97 [facility] Comment on above: Performed By: #### 7 600, 622, 6399, 92356, 98896 #### [facility] of [address], [address] [place], [place] [address] Procurement Inspector: Salvador Swanson MD #### 945 #### [facility]/[address] [place] Procurement Inspector: Yaya Alvarez M.D.,PhD ELECTROLYTE BALANCE 11 mmol/L (calc) Normal 7-17 [facility] Comment on above: Performed By: #### 7 600, 622, 6399, 99593, 22762 #### [facility] of [address], [address] [place], [place] [address] Procurement Inspector: Salvador Swanson MD #### 945 #### [facility]/[place] [address] [facility] [address] [place] Procurement Inspector: Yaya Alvarez M.D.,PhD GFR/1.73 sq M.predicted among non-blacks MDRD (S/P/Bld) [Vol rate/Area] 116 mL/min/{1.73_m2} Normal > OR = 60 [facility] Comment on above: Performed By: #### 7 600, 622, 6399, 32299, 70018 #### [facility] [address], [address] [place], [place] [address] Procurement Inspector: Salvador Swanson MD #### 945 #### [facility] [place] Procurement Inspector: Yaya Alvarez M.D.,PhD Glucose [Mass/Vol] 112 mg/dL High 65-99 [facility] Comment on above: Result Comment: Fasting reference interval For someone without known diabetes, a glucose value between 100 and 125 mg/dL is consistent with prediabetes and should be confirmed with a follow-up test. Performed By: #### 7 600, 622, 6399, 61524, 53055 #### [facility] [address], [address] [place], [place] [address] Procurement Inspector: Salvador Swanson MD #### 945 #### [facility] [place] Procurement Inspector: Yaya Alvarez M.D.,PhD Potassium [Moles/Vol] 4.0 mmol/L Normal 3.5-5.3 [facility] Comment on above: Performed By: #### 7 600, 622, 6399, 02554, 84389 #### [facility] [address], [address] [place], [place] [address] Procurement Inspector: Salvador Swanson MD #### 945 #### [facility] [address] [place] Procurement Inspector: Yaya Alvarez M.D.,PhD Protein [Mass/Vol] 7.4 g/dL Normal 6.1-8.1 [facility] Comment on above: Performed By: #### 7 600, 622, 6399, 86311, 07240 #### [facility] of [address], [address] [place], [place] [phone] Procurement Inspector: Salvador Swanson MD #### 945 #### [facility]/[place] [address] [facility] [place] Procurement Inspector: Yaya Alvarez M.D.,PhD Sodium [Moles/Vol] 138 mmol/L Normal 135-146 [facility] Comment on above: Performed By: #### 7 600, 622, 6399, 85095, 66869 #### [facility] of [address], [address] [place], [place] [phone] Procurement Inspector: Salvador Swanson MD #### 945 #### [facility] [place] Procurement Inspector: Yaya Alvarez M.D.,PhD Urea nitrogen [Mass/Vol] 10 mg/dL Normal 7-25 [facility] Comment on above: Performed By: #### 7 600, 622, 6399, 07221, 42809 #### [facility] of [address], [address] [place], [place] [id number] Procurement Inspector: Salvador Swanson MD #### 945 #### [facility]/[place] [address] [facility] [place] Procurement Inspector: Yaya Alvarez M.D.,PhD HEMOGLOBIN A1c WITH eAGon eAG (mmol/L) 7.7 mmol/L Normal [facility] Comment on above: Performed By: #### 1 759, 89646 #### [facility] of [address], [address] [place], [place] [phone] Procurement Inspector: Salvador Swanson MD HbA1c (Bld) [Mass fraction] [...] for children. Performed By: #### 1 759, 27908 #### [facility] [address], [address] [place] [address] Procurement Inspector: Salvador Swanson MD Magnesium [Mass/Vol] 140 mg/dL Normal [facility] Comment on above: Performed By: #### 1 759, 45297 #### [facility] [address], [address] [place] [address] Procurement Inspector: Salvador Swanson MD LIPID PANEL, [facility] 05-0 Cholesterol [Mass/Vol] 218 mg/dL High <200 [facility] Comment on above: Order Comment: FASTI NG:YES FASTING: YES Performed By: #### 7 600, 622, 6399, 19626, 79844 #### [facility] [address], [address] [place] [address] Procurement Inspector: Salvador Swanson MD #### 945 #### [facility] [address] [facility] [place] Procurement Inspector: Yaya Alvarez M.D.,PhD Cholesterol in HDL [Mass/Vol] 58 mg/dL Normal > OR = 50 [facility] Comment on above: Order Comment: FASTI NG:YES FASTING: YES Performed By: #### 7 600, 622, 6399, 13764, 05386 #### [facility] [address], [address] [place] [address] Procurement Inspector: Salvador Swanson MD #### 945 #### [facility] [address] [facility] [address] [place] Procurement Inspector: Yaya Alvarez M.D.,PhD Cholesterol in LDL [Mass/Vol] 139 mg/dL High [facility] Comment on above: Order Comment: FASTI NG:YES FASTING: YES Result Comment: Refe rence range: <100 Desirable range <100 mg/dL for primary prevention; <70 mg/dL for patients with CHD or diabetic patients with > or = 2 CHD risk factors. LDL-C is now calculated using the Ayala calculation, which is a validated novel method providing better accuracy than the Friedewald equation in the estimation of LDL-C. Darren SS et al. ILIANA. 2013;310(19): 9740-4874 (http://education.[employer]/faq/SNG797) Performed By: #### 7 600, 622, 6399, 57722, 71950 #### [facility] [place] [address] Procurement Inspector: Salvador Swanson MD #### 945 #### [facility] [address] [facility] [address] [place] Procurement Inspector: Yaya Alvarez M.D.,PhD Cholesterol.total/Cho lesterol in HDL [Mass ratio] 3.8 {ratio} Normal <5.0 [facility] Comment on above: Order Comment: FASTI NG:YES FASTING: YES Performed By: #### 7 600, 622, 6399, 20411, 80958 #### [facility] [address], [address] [place], [place] [id number] Procurement Inspector: Salvador Swanson MD #### 945 #### [facility] [address] [facility] [address] [place] Procurement Inspector: Yaya Alvarez M.D.,PhD NON HDL CHOLESTEROL 160 mg/dL (calc) High <130 [facility] Comment on above: Order Comment: FASTI NG:YES FASTING: YES Result Comment: For patients with diabetes plus 1 major ASCVD risk factor, treating to a non-HDL-C goal of <100 mg/dL (LDL-C of <70 mg/dL) is considered a therapeutic option. Performed By: #### 7 600, 622, 6399, 01612, 07274 #### [facility] [address], [address] [place] [address] Procurement Inspector: Salvador Swanson MD #### 945 #### [facility]/[place] [address] [facility] [place] Procurement Inspector: Yaya Alvarez M.D.,PhD Triglyceride [Mass/Vol] 99 mg/dL Normal <150 [facility] Comment on above: Order Comment: FASTI NG:YES FASTING: YES Performed By: #### 7 600, 622, 6399, 51416, 46402 #### [facility] [address], [address] [place] [address] Procurement Inspector: Salvador Swanson MD #### 945 #### [facility]/[place] [address] [facility] [place] Procurement Inspector: Yaya Alvarez M.D.,PhD MAGNESIUMon 03-09-2025 Magnesium [Mass/Vol] 2.1 mg/dL Normal 1.5-2.5 [facility] Comment on above: Performed By: #### 7 600, 622, 6399, 75058, 13289 #### [facility] [address], [address] [place] [address] Procurement Inspector: Salvador Swanson MD #### 945 #### [facility]/[place] [address] [facility] [place] Procurement Inspector: Yaya Alvarez M.D.,PhD TSH W/REFLEX TO FT4on 2024 TSH W/REFLEX TO FT4 1.47 mIU/L Normal [facility] Comment on above: Result Comment: Refe rence Range > or = 20 Years 0.40-4.50 Ranges First trimester 0.26-2.66 Second trimester 0.55-2.73 Third trimester 0.43-2.91 Performed By: #### 7 600, 622, 6399, 18505, 34388 #### [facility] [address], [address] [place] [address] Procurement Inspector: Salvador Swanson MD #### 945 #### [facility] [address] [facility] [place] Procurement Inspector: Yaya Alvarez M.D.,PhD ZINCon 03-09-2025 ZINC 58 mcg/dL Low 60-130 [facility] Comment on above: Result Comment: This test was developed and its analytical performance characteristics have been determined by [facility] [place]. It has not been cleared or approved by the U.S. Food and Drug Administration. This assay has been validated pursuant to the CLIA regulations and is used for clinical purposes. Performed By: #### 7 600, 622, 6399, 60973, 04853 #### [facility] [address], [address] [place] [address] Procurement Inspector: Salvador Swanson MD #### 945 #### [facility] [address] [facility] [place] Procurement Inspector: Yaya Alvarez M.D.,PhD MR/BMS.BPon 03-05-2025 MR/BMS.BP Normal [facility] Glucose Test strip manual (B ld) [Mass/Vol]on 03-01-2025 Glucose [Mass/Vol] 105 mg/dL High 74 - 99 mg/dL [facility] Interpretation and review of laboratory results Abnormal [facility] Glucose [Mass/Vol] 105 mg/dL High 74-99 [facility] Comment on above: Performed By: #### 3 5255-9 #### QUIN Simon ([id number]) [facility]) [address] [place] [address] MR/BMS.BPon 02-24-2025 MR/BMS.BP Normal [facility] MR/BMS.BPon 02-19-2025 MR/BMS.BP Normal [facility] CBC W Auto Differential pane l (Bld)on 02-16-2025 Basophils (Bld) [#/Vol] 0.08 10*3/uL [facility] Basophils/100 WBC (Bld) 0.7 % 0.0 - 2.0 % [facility] Eosinophils (Bld) [#/Vol] 0.01 10*3/uL [facility] Eosinophils/100 WBC (Bld) 0.1 % 0.0 - 6.0 % [facility] Erythrocyte distribution width (RBC) [Ratio] 13.4 % 11.5 - 14.5 % [facility] Hematocrit (Bld) [Volume fraction] 35.2 % Low 36.0 - 46.0 % [facility] Hemoglobin (Bld) [Mass/Vol] 11 g/dL Low 12.0 - 16.0 g/dL [facility] Immature granulocytes (Bld) [#/Vol] 0.3 10*3/uL [facility] Immature granulocytes/100 WBC (Bld) 2.8 % High 0.0 - 0.9 % [facility] Comment on above: Immature Granulocyte Count (IG) includes promyelocytes, myelocytes and metamyelocytes but does not include bands. Percent differential counts (%) should be interpreted in the context of the absolute cell counts (cells/UL). Interpretation and review of laboratory results Abnormal [facility] Lymphocytes (Bld) [#/Vol] 2.35 10*3/uL [facility] Lymphocytes/100 WBC (Bld) 22 % 13.0 - 44.0 % [facility] MCH (RBC) [Entitic mass] 27.2 pg 26.0 - 34.0 pg [facility] MCHC (RBC) [Mass/Vol] 31.3 g/dL Low 32.0 - 36.0 g/dL [facility] MCV (RBC) [Entitic vol] 87 fL 80 - 100 fL [facility] Monocytes (Bld) [#/Vol] 0.59 10*3/uL [facility] Monocytes/100 WBC (Bld) 5.5 % 2.0 - 10.0 % [facility] Neutrophils (Bld) [#/Vol] 7.34 10*3/uL [facility] Comment on above: Percent differential counts (%) should be interpreted in the context of the absolute cell counts (cells/uL). Neutrophils/100 WBC (Bld) 68.9 % 40.0 - 80.0 % [facility] Nucleated RBC/100 WBC (Bld) [Ratio] 0 % [facility] Platelets (Bld) [#/Vol] 314 10*3/uL [facility] RBC (Bld) [#/Vol] 4.05 10*6/uL [facility] WBC (Bld) [#/Vol] 10.7 10*3/uL [facility] Basophils (Bld) [#/Vol] 0.08 x10*3/uL Normal 0.00-0.10 [facility] Comment on above: Performed By: #### 3 5255-9 #### QUIN Simon ([id number]) [facility] [address] [place] [address] Basophils/100 WBC (Bld) 0.7 % Normal 0.0-2.0 [facility] Comment on above: Performed By: #### 3 5255-9 #### QUIN HARTMAN L ([id number]) [facility] [address] [place] [address] Eosinophils (Bld) [#/Vol] 0.01 x10*3/uL Normal 0.00-0.70 [facility] Comment on above: Performed By: #### 3 5255-9 #### QUIN HARTMAN L ([id number]) [facility] [address] [place] [address] Eosinophils/100 WBC (Bld) 0.1 % Normal 0.0-6.0 [facility] Comment on above: Performed By: #### 3 5255-9 #### QUIN HARTMAN L ([id number]) [facility] [address] [place] [address] Erythrocyte distribution width (RBC) [Ratio] 13.4 % Normal 11.5-14.5 [facility] Comment on above: Performed By: #### 3 5255-9 #### QUIN Simon ([id number]) [facility] [address] [place] [address] Hematocrit (Bld) [Volume fraction] 35.2 % Low 36.0-46.0 [facility] Comment on above: Performed By: #### 3 5255-9 #### QUIN Simon ([id number]) [facility] [address] [place] [address] Hemoglobin (Bld) [Mass/Vol] 11.0 g/dL Low 12.0-16.0 [facility] Comment on above: Performed By: #### 3 5255-9 #### QUIN Simon ([id number]) [facility] [address] [place] [address] Immature granulocytes (Bld) [#/Vol] 0.30 x10*3/uL Normal 0.00-0.70 [facility] Comment on above: Performed By: #### 3 5255-9 #### QUIN Simon ([id number]) [facility] [address] [place] [address] Immature granulocytes/100 WBC (Bld) 2.8 % High 0.0-0.9 [facility] Comment on above: Result Comment: Gayla ture Granulocyte Count (IG) includes promyelocytes, myelocytes and metamyelocytes but does not include bands. Percent differential counts (%) should be interpreted in the context of the absolute cell counts (cells/UL). Performed By: #### 3 5255-9 #### QUIN Simon ([id number]) [facility] [address] [place] [address]58[address] Lymphocytes (Bld) [#/Vol] 2.35 x10*3/uL Normal 1.20-4.80 [facility] Comment on above: Performed By: #### 3 5255-9 #### QUIN Simon ([id number]) [facility] [address] [place] [address] 797[address] Lymphocytes/100 WBC (Bld) 22.0 % Normal 13.0-44.0 [facility] Comment on above: Performed By: #### 3 5255-9 #### QUIN Simon ([id number]) [facility]) [address] [place] [address]69 MCH (RBC) [Entitic mass] 27.2 pg Normal 26.0-34.0 [facility] Comment on above: Performed By: #### 3 5255-9 #### QUIN Simon ([id number]) [facility] [address] [place] [address] 19879 MCHC (RBC) [Mass/Vol] 31.3 g/dL Low 32.0-36.0 [facility] Comment on above: Performed By: #### 3 5255-9 #### QUIN Simon ([id number]) [facility] [address] [place] [address]33[address] MCV (RBC) [Entitic vol] 87 fL Normal 80-100 [facility] Comment on above: Performed By: #### 3 5255-9 #### QUIN Simon ([id number]) [facility]) [address] [place] [address] 90643 Monocytes (Bld) [#/Vol] 0.59 x10*3/uL Normal 0.10-1.00 [facility] Comment on above: Performed By: #### 3 5255-9 #### QUIN Simon ([id number]) [facility] [address] [place] [address] 13825 Monocytes/100 WBC (Bld) 5.5 % Normal 2.0-10.0 [facility] Comment on above: Performed By: #### 3 5255-9 #### QUIN Simon ([id number]) [facility] [address] [place] [address] Neutrophils (Bld) [#/Vol] 7.34 x10*3/uL Normal 1.20-7.70 [facility] Comment on above: Result Comment: Perc ent differential counts (%) should be interpreted in the context of the absolute cell counts (cells/uL). Performed By: #### 3 5255-9 #### QUIN Simon ([id number]) [facility] [address] [place] [address] Neutrophils/100 WBC (Bld) 68.9 % Normal 40.0-80.0 [facility] Comment on above: Performed By: #### 3 5255-9 #### QUIN Simon ([id number]) [facility] [address] [place] [address] Nucleated RBC/100 WBC (Bld) [Ratio] 0.0 /100 WBCs Normal 0.0-0.0 [facility] Comment on above: Performed By: #### 3 5255-9 #### QUIN Simon ([id number]) [facility] [address] [place] [address] Platelets (Bld) [#/Vol] 314 x10*3/uL Normal 150-450 [facility] Comment on above: Performed By: #### 3 5255-9 #### QUIN Simon ([id number]) [facility] [address] [place] [address] RBC (Bld) [#/Vol] 4.05 x10*6/uL Normal 4.00-5.20 [facility] Comment on above: Performed By: #### 3 5255-9 #### QUIN HARTMAN L ([id number]) [facility] [address] [place] [address] WBC (Bld) [#/Vol] 10.7 x10*3/uL Normal 4.4-11.3 [facility] Comment on above: Performed By: #### 3 5255-9 #### QUIN Simon ([id number]) [facility] [address] [place] [address] US AbdomenOrdered By: Eladio aMtthews on 02-16-2025 [facility] Work Phone: Radiology Study observation (narrative) [facility] Work Phone: Glucose Test strip manual (B ld) [Mass/Vol]on 02-13-2025 Glucose [Mass/Vol] 125 mg/dL High 74 - 99 mg/dL [facility] Interpretation and review of laboratory results Abnormal [facility] Rubella virus IgG IA Qnon Rubella virus IgG IA Ql Positive Negative [facility] Work Phone: Rubella virus IgG Qn (S) 1.5 [IU]/mL <=0.7 IA IA [facility] Work Phone: NEGATIVE: No IgG antibodies [...] to Rubella through infection or vaccination. [facility] Work Phone: [facility] Work Phone: Rubella virus IgG IA Ql Positive Normal Negative [facility] Comment on above: Order Comment: The b eta-hydroxybutyrate test performance characteristics have been validated by [facility]. This test has not been approved by the FDA; however such approval is not necessary. Performed By: #### 3 5255-9 #### QUIN Simon ([id number]) [facility] [address] [place] [address] Rubella virus IgG Qn (S) 1.5 IA Normal <=0.7 IA [facility] Comment on above: Order Comment: The b eta-hydroxybutyrate test performance characteristics have been validated by [facility]. This test has not been approved by the FDA; however such approval is not necessary. Performed By: #### 3 5255-9 #### QUIN Simon ([id number]) [facility] [address] [place] [address] Glucose Test strip manual (B ld) [Mass/Vol]on 02-12-2025 Glucose [Mass/Vol] 125 mg/dL High 74-99 [facility] Comment on above: Performed By: #### 3 5255-9 #### QUIN Simon ([id number]) [facility] [address] [place] [address] 89660 Glucose [Mass/Vol] 101 mg/dL High 74 - 99 mg/dL [facility] Interpretation and review of laboratory results Abnormal [facility] Glucose [Mass/Vol] 101 mg/dL High 74-99 [facility] Comment on above: Performed By: #### 3 5255-9 #### QUIN Simon ([id number]) [facility] [address] [place] [address] 66280 HBV surface Ag IA Qlon 02-12 Interpretation and review of laboratory results Normal [facility] HIV 1+2 Ab+HIV1 p24 Ag IA Ql on 02-12-2025 Interpretation and review of laboratory results Normal [facility] HIV Ag/Ab screen is performed using the Siemens SeptRx HIV Ag/Ab Combo assay which detects the presence of HIV p24 antigen as well as antibodies to HIV-1 (Group M and O) and HIV-2. No laboratory evidence of HIV infection. If acute HIV infection is suspected, consider testing for HIV RNA by PCR (viral load). [facility] HIV 1/2 Antigen/Antibody Scr een with Reflex to Confirmationon 02-12-2025 HIV 1+2 Ab+HIV1 p24 Ag IA Ql Non-Reactive Nonreactive [facility] Hepatitis B surface antigeno n 02-12-2025 HBV surface Ag IA Ql Non-Reactive Nonreactive U [facility] Comment on above: Biotin interference may cause falsely decreased results. Patients taking a Biotin dose of up to 5 mg/day should refrain from taking Biotin for 24 hours before sample collection. Providers may contact their local laboratory for further information. Rubella virus IgG IA QnOrder ed By: Naya Khan on 02-12-2025 Rubella virus IgG IA Ql Positive Negative [facility] Rubella virus IgG Qn (S) 1.5 [IU]/mL <=0.7 IA IA [facility] NEGATIVE: No IgG antibodies specific to [...] exposed to Rubella through infection or vaccination. [facility] Streptococcus.beta-hemolytic Org specific cx Ql (Genital specimen)Ordered By: Micheline Sutton on 02-12-2025 Interpretation and review of laboratory results Abnormal [facility] S. agalactiae Org specific cx Ql (Genital specimen) Isolated: Streptococcus agalactiae (Group B Streptococcus) Abnormal [facility] Streptococcus agalac tiae (Group B Streptococcus) is universally susceptible to beta-lactam antibiotics and vancomycin. Routine susceptibility testing not performed. For penicillin allergic patients, please contact the laboratory within 5 days of collection at to request susceptibility testing. [facility] Blood type and Indirect anti body screen panel (Bld)on 02-11-2025 ABO group Nom (Bld) O Unive [facility] Blood group antibody screen Ql Negative [facility] D Ag Ql (Bld) Positive [facility] ABO group Nom (Bld) O Normal Unive [facility] Comment on above: Performed By: #### 1 4804-9 #### QUIN Simon ([id number]) [facility] [address] [place] [address] Blood group antibody screen Ql Negative [facility] Comment on above: Performed By: #### 1 4804-9 #### QUIN Simon ([id number]) [facility] [address] [place] [address] 78887 D Ag Ql (Bld) Positive [facility] Comment on above: Performed By: #### 1 4804-9 #### QUIN Simon ([id number]) [facility] [address] [place] [address] 11661 Glucose Test strip manual (B ld) [Mass/Vol]on 02-11-2025 Glucose [Mass/Vol] 110 mg/dL High 74 - 99 mg/dL [facility] Interpretation and review of laboratory results Abnormal [facility] Glucose [Mass/Vol] 110 mg/dL High 74-99 [facility] Comment on above: Performed By: #### 3 5255-9 #### QUIN Simon ([id number]) [facility] [address] [place] [address] 17324 Glucose [Mass/Vol] 96 mg/dL 74 - 99 mg/dL [facility] Interpretation and review of laboratory results Normal [facility] Glucose [Mass/Vol] 96 mg/dL Normal 74-99 [facility] Comment on above: Performed By: #### 3 5255-9 #### QUIN Simon ([id number]) [facility] [address] [place] [address] 34305 Glucose [Mass/Vol] 66 mg/dL Low 74 - 99 mg/dL [facility] Interpretation and review of laboratory results Abnormal [facility] Glucose [Mass/Vol] 66 mg/dL Low 74-99 [facility] Comment on above: Performed By: #### 1 4804-9 #### QUIN Simon ([id number]) [facility] [address] [place] [address] 35647 Glucose [Mass/Vol] 72 mg/dL Low 74 - 99 mg/dL [facility] Interpretation and review of laboratory results Abnormal [facility] Glucose [Mass/Vol] 72 mg/dL Low 74-99 [facility] Comment on above: Performed By: #### 1 4804-9 #### QUIN Simon ([id number]) [facility] [address] [place] [address] 87105 Glucose [Mass/Vol] 113 mg/dL High 74 - 99 mg/dL [facility] Interpretation and review of laboratory results Abnormal [facility] Glucose [Mass/Vol] 113 mg/dL High 74-99 [facility] Comment on above: Performed By: #### 1 4804-9 #### QUIN Simon ([id number]) [facility] [address] [place] [address] 95924 Glucose [Mass/Vol] 126 mg/dL High 74 - 99 mg/dL [facility] Interpretation and review of laboratory results Abnormal [facility] Glucose [Mass/Vol] 126 mg/dL High 74-99 [facility] Comment on above: Performed By: #### 1 4804-9 #### QUIN Simon ([id number]) [facility] [address] [place] [address] 87301 Glucose [Mass/Vol] 142 mg/dL High 74 - 99 mg/dL [facility] Interpretation and review of laboratory results Abnormal [facility] Glucose [Mass/Vol] 142 mg/dL High 74-99 [facility] Comment on above: Performed By: #### 1 4804-9 #### QUIN Simon ([id number]) [facility] [address] [place] [address] 53325 Glucose [Mass/Vol] 154 mg/dL High 74 - 99 mg/dL [facility] Interpretation and review of laboratory results Abnormal [facility] Glucose [Mass/Vol] 154 mg/dL High 74-99 [facility] Comment on above: Performed By: #### 1 4804-9 #### QUIN Simon ([id number]) [facility] [address] [place] [address] 23911 Prepare RBC: 1 Unitson 02-11 Blood Expiration Date 03/07/2025 11:59:00 PM EDT [facility] Dispense Status RE [facility] PRODUCT BLOOD TYPE 5100 [facility] PRODUCT CODE [id number] [facility] Unit ABO O [facility] Unit Number [id number] [facility] Unit RH Positive [facility] UNIT VOLUME 279 [facility] XM INTEP COMP [facility] Glucose Test strip manual (B ld) [Mass/Vol]on 02-10-2025 Glucose [Mass/Vol] 138 mg/dL High 74 - 99 mg/dL [facility] Interpretation and review of laboratory results Abnormal [facility] Glucose [Mass/Vol] 138 mg/dL High 74-99 [facility] Comment on above: Performed By: #### 1 4804-9 #### QUIN Simon ([id number]) [facility] [address] [place] [address] 47670 Glucose [Mass/Vol] 101 mg/dL High 74 - 99 mg/dL [facility] Interpretation and review of laboratory results Abnormal [facility] Glucose [Mass/Vol] 101 mg/dL High 74-99 [facility] Comment on above: Performed By: #### 1 4804-9 #### QUIN Simon ([id number]) [facility] [address] [place] [address] 20238 Glucose [Mass/Vol] 124 mg/dL High 74 - 99 mg/dL [facility] Interpretation and review of laboratory results Abnormal [facility] Glucose [Mass/Vol] 124 mg/dL High 74-99 [facility] Comment on above: Performed By: #### 2 4323-8 #### QUIN Simon ([id number]) [facility] [address] [place] [address] Glucose [Mass/Vol] 157 mg/dL High 74 - 99 mg/dL [facility] Interpretation and review of laboratory results Abnormal [facility] Glucose [Mass/Vol] 157 mg/dL High 74-99 [facility] Comment on above: Performed By: #### 2 4323-8 #### QUIN Simon ([id number]) [facility] [address] [place] [address] No Panel Informationon 02-10 There is no [...] no significant focal stenosis or aneurysm. The [id number] intracranial MRV is within normal limits without evidence of venous sinus thrombosis. MACRO: None. Signed by: Ranjan Trivedi 02/10/2025 5:28 AM Dictation workstation: [id number] [facility] Interpreted By: Ranjan Root, STUDY: MR BRAIN WO IV CONTRAST; MR ANGIO HEAD WO IV CONTRAST; MR VENOGRAPHY INTRACRANIAL WO IV CONTRAST; 02/10/2025 5:02 am INDICATION: Signs/Symptoms:intractabl e headache, sPEC; Signs/Symptoms:intractabl e NIELSEN, sPEC. COMPARISON: None. ACCESSION NUMBER(S): [id number]; [id number]; [id number] ORDERING CLINICIAN: CLAIR CASTRO TECHNIQUE: Axial diffusion, axial T2, axial FLAIR, axial gradient echo T2, coronal T1, and sagittal T1 weighted MRI images of the brain were obtained without intravenous contrast administration. In addition, lqvo-om-[id number] MRA and MRV images of the intracranial [...] no significant focal stenosis or aneurysm. The zqnx-bq-ghuagp intracranial MRV is within normal limits without evidence of venous sinus thrombosis. [facility] Ranjan Trivedi M D - 02/10/2025 Interpreted By: Ranjan Trivedi, STUDY: MR BRAIN WO IV CONTRAST; MR ANGIO HEAD WO IV CONTRAST; MR VENOGRAPHY INTRACRANIAL WO IV CONTRAST; 02/10/2025 5:02 am INDICATION: Signs/Symptoms:intractabl e headache, sPEC; Signs/Symptoms:intractabl e NIELSEN, sPEC. COMPARISON: None. ACCESSION NUMBER(S): [id number]; [id number]; [id number] ORDERING CLINICIAN: CLAIR CASTRO TECHNIQUE: Axial diffusion, axial T2, axial FLAIR, axial gradient echo T2, coronal T1, and sagittal T1 weighted MRI images of the brain were obtained without intravenous contrast administration. In addition, gvgm-hh-ayahum MRA and MRV images of the intracranial [...] no significant focal stenosis or aneurysm. The xnmt-ga-ksiacv intracranial MRV is within normal limits without [...] no significant focal stenosis or aneurysm. The cfpg-bu-gcrqbo intracranial MRV is within normal limits without evidence of venous sinus thrombosis. MACRO: None. Signed by: Ranjan Trivedi 02/10/2025 5:28 AM Dictation workstation: [id number] [facility] Work Phone: Radiology Study observation (narrative) [facility] Work Phone: No Panel InformationOrdered By: Ranjan Trivedi on 02-10-2025 [facility] Work Phone: CBC panel Auto (Bld)on 02-09 Erythrocyte distribution width (RBC) [Ratio] 13.4 % 11.5 - 14.5 % [facility] Hematocrit (Bld) [Volume fraction] 34.8 % Low 36.0 - 46.0 % [facility] Hemoglobin (Bld) [Mass/Vol] 10.6 g/dL Low 12.0 - 16.0 g/dL [facility] Interpretation and review of laboratory results Abnormal [facility] MCH (RBC) [Entitic mass] 28 pg 26.0 - 34.0 pg [facility] MCHC (RBC) [Mass/Vol] 30.5 g/dL Low 32.0 - 36.0 g/dL [facility] MCV (RBC) [Entitic vol] 92 fL 80 - 100 fL [facility] Nucleated RBC/100 WBC (Bld) [Ratio] 0 % [facility] Platelets (Bld) [#/Vol] 265 10*3/uL [facility] RBC (Bld) [#/Vol] 3.78 10*6/uL Low Unive [facility] WBC (Bld) [#/Vol] 18.5 10*3/uL High Unive [facility] Erythrocyte distribution width (RBC) [Ratio] 13.4 % Normal 11.5-14.5 [facility] Comment on above: Performed By: #### 2 4323-8 #### QUIN Simon ([id number]) [facility] [address] [place] [address] 99555 Hematocrit (Bld) [Volume fraction] 34.8 % Low 36.0-46.0 [facility] Comment on above: Performed By: #### 2 4323-8 #### QUIN Simon ([id number]) [facility]) [address] [place] [address] 81858 Hemoglobin (Bld) [Mass/Vol] 10.6 g/dL Low 12.0-16.0 [facility] Comment on above: Performed By: #### 2 4323-8 #### QUIN Simon ([id number]) [facility] [address] [place] [address] 08218 MCH (RBC) [Entitic mass] 28.0 pg Normal 26.0-34.0 [facility] Comment on above: Performed By: #### 2 4323-8 #### QUIN Simon ([id number]) [facility] [address] [place] [address] 68278 MCHC (RBC) [Mass/Vol] 30.5 g/dL Low 32.0-36.0 [facility] Comment on above: Performed By: #### 2 4323-8 #### QUIN Simon ([id number]) [facility] [address] [place] [address] 77317 MCV (RBC) [Entitic vol] 92 fL Normal 80-100 [facility] Comment on above: Performed By: #### 2 4323-8 #### QUIN Simon ([id number]) [facility]) [address] [place] [address] 42439 Nucleated RBC/100 WBC (Bld) [Ratio] 0.0 /100 WBCs Normal 0.0-0.0 [facility] Comment on above: Performed By: #### 2 4323-8 #### QUIN Simon ([id number]) [facility]) [address] [place] [address] 71285 Platelets (Bld) [#/Vol] 265 x10*3/uL Normal 150-450 [facility] Comment on above: Performed By: #### 2 4323-8 #### QUIN Simon ([id number]) [facility] [address] [place] [address] RBC (Bld) [#/Vol] 3.78 x10*6/uL Low 4.00-5.20 [facility] Comment on above: Performed By: #### 2 4323-8 #### QUIN Simon ([id number]) [facility] [address] [place] [address] WBC (Bld) [#/Vol] 18.5 x10*3/uL High 4.4-11.3 [facility] Comment on above: Performed By: #### 2 4323-8 #### QUIN Simon ([id number]) [facility] [address] [place] [address] Erythrocyte distribution width (RBC) [Ratio] 13.3 % 11.5 - 14.5 % [facility] Hematocrit (Bld) [Volume fraction] 35.4 % Low 36.0 - 46.0 % [facility] Hemoglobin (Bld) [Mass/Vol] 11.2 g/dL Low 12.0 - 16.0 g/dL [facility] Interpretation and review of laboratory results Abnormal [facility] MCH (RBC) [Entitic mass] 28.3 pg 26.0 - 34.0 pg [facility] MCHC (RBC) [Mass/Vol] 31.6 g/dL Low 32.0 - 36.0 g/dL [facility] MCV (RBC) [Entitic vol] 89 fL 80 - 100 fL [facility] Nucleated RBC/100 WBC (Bld) [Ratio] 0 % [facility] Platelets (Bld) [#/Vol] 266 10*3/uL [facility] RBC (Bld) [#/Vol] 3.96 10*6/uL Low [facility] WBC (Bld) [#/Vol] 19.1 10*3/uL [facility] Erythrocyte distribution width (RBC) [Ratio] 13.3 % Normal 11.5-14.5 [facility] Comment on above: Performed By: #### 2 4323-8 #### QUIN Simon ([id number]) [facility] [address] [place] [address] 99139 Hematocrit (Bld) [Volume fraction] 35.4 % Low 36.0-46.0 [facility] Comment on above: Performed By: #### 2 4323-8 #### QUIN Simon ([id number]) [facility] [address] [place] [address] 12313 Hemoglobin (Bld) [Mass/Vol] 11.2 g/dL Low 12.0-16.0 [facility] Comment on above: Performed By: #### 2 4323-8 #### QUIN Simon ([id number]) [facility] [address] [place] [address] 85171 MCH (RBC) [Entitic mass] 28.3 pg Normal 26.0-34.0 [facility] Comment on above: Performed By: #### 2 4323-8 #### QUIN Simon ([id number]) [facility] [address] [place] [address] 03081 MCHC (RBC) [Mass/Vol] 31.6 g/dL Low 32.0-36.0 [facility] Comment on above: Performed By: #### 2 4323-8 #### QUIN Simon ([id number]) [facility] [address] [place], [place] [address] MCV (RBC) [Entitic vol] 89 fL Normal 80-100 [facility] Comment on above: Performed By: #### 2 4323-8 #### QUIN Simon ([id number]) [facility] [address] [place] [address] 59799 Nucleated RBC/100 WBC (Bld) [Ratio] 0.0 /100 WBCs Normal 0.0-0.0 [facility] Comment on above: Performed By: #### 2 4323-8 #### QUIN iSmon ([id number]) [facility]) [address] [place] [address] 29185 Platelets (Bld) [#/Vol] 266 x10*3/uL Normal 150-450 [facility] Comment on above: Performed By: #### 2 4323-8 #### QUIN Simon ([id number]) [facility]) [address] [place] [address] RBC (Bld) [#/Vol] 3.96 x10*6/uL Low 4.00-5.20 [facility] Comment on above: Performed By: #### 2 4323-8 #### QUIN Simon ([id number]) [facility]) [address] [place] [address] 04328 WBC (Bld) [#/Vol] 19.1 x10*3/uL High 4.4-11.3 [facility] Comment on above: Performed By: #### 2 4323-8 #### QUIN Simon ([id number]) [facility]) [address] [place] [address] 59205 Comprehensive metabolic 2000 panelon 02-09-2025 Albumin BCP dye [Mass/Vol] 3.1 g/dL Low 3.4 - 5.0 g/dL [facility] ALP [Catalytic activity/Vol] 80 U/L 33 - 110 U/L [facility] ALT With P-5'-P [Catalytic activity/Vol] 6 U/L Low 7 - 45 U/L [facility] Comment on above: Patients treated wit h Sulfasalazine may generate falsely decreased results for ALT. Anion gap [Moles/Vol] 16 mmol/L 10 - 2 0 mmol/L [facility] AST With P-5'-P [Catalytic activity/Vol] 18 U/L 9 - 39 U/L [facility] Comment on above: MILD HEMOLYSIS DETEC STEFF. The result may be falsely elevated due to hemolysis or other interferents. Clinical correlation is recommended. Repeat testing may be considered. Bilirubin [Mass/Vol] 0.6 mg/dL 0.0 - 1 .2 mg/dL [facility] Calcium [Mass/Vol] 8 mg/dL Low 8.6 - 10. 6 mg/dL [facility] Chloride [Moles/Vol] 106 mmol/L 98 - 10 7 mmol/L [facility] CO2 [Moles/Vol] 17 mmol/L Low 21 - 32 mmol/L [facility] Creatinine [Mass/Vol] 0.54 mg/dL 0.50 - 1.05 mg/dL [facility] eGFR - PINF [facility] Comment on above: Calculations of zoya mated GFR are performed using the 2020 CKD-EPI Study Refit equation without the race variable for the IDMS-Traceable creatinine methods. https://jasn.asnjournals.org/content//ASN.789740 2921 Glucose [Mass/Vol] 113 mg/dL High 74 - 99 mg/dL [facility] Interpretation and review of laboratory results Abnormal [facility] Potassium [Moles/Vol] 4.1 mmol/L 3.5 - 5.3 mmol/L [facility] Comment on above: MILD HEMOLYSIS DETEC STEFF. The result may be falsely elevated due to hemolysis or other interferents. Clinical correlation is recommended. Repeat testing may be considered. Protein [Mass/Vol] 6 g/dL Low 6.4 - 8.2 g/dL [facility] Sodium [Moles/Vol] 135 mmol/L Low 136 - 145 mmol/L [facility] Urea nitrogen [Mass/Vol] 9 mg/dL 6 - 23 mg/dL [facility] Albumin BCP dye [Mass/Vol] 3.1 g/dL Low 3.4-5.0 [facility] Comment on above: Performed By: #### 2 4323-8 #### QUIN Simon ([id number]) [facility] [address] [place] [address] ALP [Catalytic activity/Vol] 80 U/L Normal 33-110 [facility] Comment on above: Performed By: #### 2 4323-8 #### QUIN HARTMAN L ([id number]) [facility] [address] [place] [address] ALT With P-5'-P [Catalytic activity/Vol] 6 U/L Low 7-45 [facility] Comment on above: Result Comment: Nguyen ents treated with Sulfasalazine may generate falsely decreased results for ALT. Performed By: #### 2 4323-8 #### QUIN BRANDER L ([id number]) [facility] [address] [place] [address] 12312 Anion gap [Moles/Vol] 16 mmol/L Normal 10-20 [facility] Comment on above: Performed By: #### 2 4323-8 #### QUIN HARTMAN L ([id number]) [facility] [address] [place] [address] 14592 AST With P-5'-P [Catalytic activity/Vol] 18 U/L Normal 9-39 [facility] Comment on above: Result Comment: MILD HEMOLYSIS DETECTED. The result may be falsely elevated due to hemolysis or other interferents. Clinical correlation is recommended. Repeat testing may be considered. Performed By: #### 2 4323-8 #### QUIN Simon ([id number]) [facility]) [address] [place] [address] 83278 Bilirubin [Mass/Vol] 0.6 mg/dL Normal 0.0-1.2 [facility] Comment on above: Performed By: #### 2 4323-8 #### QUIN BERGMANMOSTEFANER L ([id number]) [facility] [address] [place] [address] 85929 Calcium [Mass/Vol] 8.0 mg/dL Low 8.6-10.6 [facility] Comment on above: Performed By: #### 2 4323-8 #### QUIN HARTMAN L ([id number]) [facility] [address] [place] [address] Chloride [Moles/Vol] 106 mmol/L Normal 98-107 [facility] Comment on above: Performed By: #### 2 4323-8 #### QUIN Simon ([id number]) [facility] [address] [place] [address] CO2 [Moles/Vol] 17 mmol/L Low 21-32 [facility] Comment on above: Performed By: #### 2 4323-8 #### QUIN Simon ([id number]) [facility] [address] [place] [address] Creatinine [Mass/Vol] 0.54 mg/dL Normal 0.50-1.05 [facility] Comment on above: Performed By: #### 2 4323-8 #### QUIN Simon ([id number]) [facility]) [address] [place] [address] 53693 GFR/1.73 sq M.predicted MDRD (S/P/Bld) [Vol rate/Area] mL/min/{1.73_m2} Normal >60 [facility] Comment on above: Result Comment: Calc ulations of estimated GFR are performed using the 2020 CKD-EPI Study Refit equation without the race variable for the IDMS-Traceable creatinine methods. https://jasn.asnjournals.org/content//ASN.920106 7698 Performed By: #### 2 4323-8 #### QUIN Simon ([id number]) [facility] [address] [place] [address] Glucose [Mass/Vol] 113 mg/dL High 74-99 [facility] Comment on above: Performed By: #### 2 4323-8 #### QUIN Simon ([id number]) [facility] [address] [place] [address] Potassium [Moles/Vol] 4.1 mmol/L Normal 3.5-5.3 [facility] Comment on above: Result Comment: MILD HEMOLYSIS DETECTED. The result may be falsely elevated due to hemolysis or other interferents. Clinical correlation is recommended. Repeat testing may be considered. Performed By: #### 2 4323-8 #### QUIN HARTMAN L ([id number]) [facility]) [address] [place] [address] 81833 Protein [Mass/Vol] 6.0 g/dL Low 6.4-8.2 [facility] Comment on above: Performed By: #### 2 4323-8 #### QUIN HARTMAN L ([id number]) [facility] [address] [place] [address] 72144 Sodium [Moles/Vol] 135 mmol/L Low 136-145 [facility] Comment on above: Performed By: #### 2 4323-8 #### QUIN HARTMAN L ([id number]) [facility]) [address] [place] [address] 41002 Urea nitrogen [Mass/Vol] 9 mg/dL Normal 6-23 [facility] Comment on above: Performed By: #### 2 4323-8 #### QIUN BERGMANMOTZER L ([id number]) [facility] [address] [place] [address] 85711 Albumin BCP dye [Mass/Vol] 3.3 g/dL Low 3.4 - 5.0 g/dL [facility] ALP [Catalytic activity/Vol] 87 U/L 33 - 110 U/L [facility] ALT With P-5'-P [Catalytic activity/Vol] 7 U/L 7 - 45 U/L [facility] Comment on above: Patients treated wit h Sulfasalazine may generate falsely decreased results for ALT. Anion gap [Moles/Vol] 13 mmol/L 10 - 2 0 mmol/L [facility] AST With P-5'-P [Catalytic activity/Vol] 10 U/L 9 - 39 U/L [facility] Bilirubin [Mass/Vol] 0.4 mg/dL 0.0 - 1 .2 mg/dL [facility] Calcium [Mass/Vol] 8.5 mg/dL Low 8.6 - 10. 6 mg/dL [facility] Chloride [Moles/Vol] 105 mmol/L 98 - 10 7 mmol/L [facility] CO2 [Moles/Vol] 22 mmol/L 21 - 32 mmol/L [facility] Creatinine [Mass/Vol] 0.52 mg/dL 0.50 - 1.05 mg/dL [facility] eGFR - PINF [facility] Comment on above: Calculations of zoya mated GFR are performed using the 2020 CKD-EPI Study Refit equation without the race variable for the IDMS-Traceable creatinine methods. https://jasn.asnjournals.org/content/early//ASN.310073 2257 Glucose [Mass/Vol] 136 mg/dL High 74 - 99 mg/dL [facility] Interpretation and review of laboratory results Abnormal [facility] Potassium [Moles/Vol] 3.9 mmol/L 3.5 - 5.3 mmol/L [facility] Protein [Mass/Vol] 6.2 g/dL Low 6.4 - 8.2 g/dL [facility] Sodium [Moles/Vol] 136 mmol/L 136 - 145 mmol/L [facility] Urea nitrogen [Mass/Vol] 8 mg/dL 6 - 23 mg/dL [facility] Albumin BCP dye [Mass/Vol] 3.3 g/dL Low 3.4-5.0 [facility] Comment on above: Performed By: #### 2 4323-8 #### QUIN Simon ([id number]) [facility] [address] [place] [address] 57577 ALP [Catalytic activity/Vol] 87 U/L Normal 33-110 [facility] Comment on above: Performed By: #### 2 4323-8 #### QUIN Simon ([id number]) [facility] [address] [place] [address] 42295 ALT With P-5'-P [Catalytic activity/Vol] 7 U/L Normal 7-45 [facility] Comment on above: Result Comment: Nguyen ents treated with Sulfasalazine may generate falsely decreased results for ALT. Performed By: #### 2 4323-8 #### QUIN Simon ([id number]) [facility]) [address] [place] [address] 54112 Anion gap [Moles/Vol] 13 mmol/L Normal 10-20 [facility] Comment on above: Performed By: #### 2 4323-8 #### QUIN Simon ([id number]) [facility]) [address] [place] [address] 27920 AST With P-5'-P [Catalytic activity/Vol] 10 U/L Normal 9-39 [facility] Comment on above: Performed By: #### 2 4323-8 #### QUIN Simon ([id number]) [facility]) [address] [place] [address] 35045 Bilirubin [Mass/Vol] 0.4 mg/dL Normal 0.0-1.2 [facility] Comment on above: Performed By: #### 2 4323-8 #### QUIN Simon ([id number]) [facility]) [address] [place] [address] 60109 Calcium [Mass/Vol] 8.5 mg/dL Low 8.6-10.6 [facility] Comment on above: Performed By: #### 2 4323-8 #### QUIN Simon ([id number]) [facility]) [address] [place] [address] 16221 Chloride [Moles/Vol] 105 mmol/L Normal 98-107 [facility] Comment on above: Performed By: #### 2 4323-8 #### QUIN Simon ([id number]) [facility]) [address] [place] [address] 45868 CO2 [Moles/Vol] 22 mmol/L Normal 21-32 [facility] Comment on above: Performed By: #### 2 4323-8 #### QUIN Simon ([id number]) [facility] [address] [place] [address] Creatinine [Mass/Vol] 0.52 mg/dL Normal 0.50-1.05 [facility] Comment on above: Performed By: #### 2 4323-8 #### QUIN Simon ([id number]) [facility]) [address] [place] [address] GFR/1.73 sq M.predicted MDRD (S/P/Bld) [Vol rate/Area] mL/min/{1.73_m2} Normal >60 [facility] Comment on above: Result Comment: Calc ulations of estimated GFR are performed using the 2020 CKD-EPI Study Refit equation without the race variable for the IDMS-Traceable creatinine methods. https://jasn.asnjournals.org/content/early//ASN.053612 0708 Performed By: #### 2 4323-8 #### QUIN Simon ([id number]) [facility]) [address] [place] [address] 17762 Glucose [Mass/Vol] 136 mg/dL High 74-99 [facility] Comment on above: Performed By: #### 2 4323-8 #### QUIN Simon ([id number]) [facility]) [address] [place] [address] 36017 Potassium [Moles/Vol] 3.9 mmol/L Normal 3.5-5.3 [facility] Comment on above: Performed By: #### 2 4323-8 #### QUIN Simon ([id number]) [facility] [address] [place] [address] Protein [Mass/Vol] 6.2 g/dL Low 6.4-8.2 [facility] Comment on above: Performed By: #### 2 4323-8 #### QUIN Simon ([id number]) [facility]) [address] [place] [address] 72940 Sodium [Moles/Vol] 136 mmol/L Normal 136-145 [facility] Comment on above: Performed By: #### 2 4323-8 #### QUIN Simon ([id number]) [facility]) [address] [place] [address] 62866 Urea nitrogen [Mass/Vol] 8 mg/dL Normal 6-23 [facility] Comment on above: Performed By: #### 2 4323-8 #### QUIN Simon ([id number]) [facility]) [address] [place] [address] 92315 HIV 1+2 Ab+HIV1 p24 Agon HIV 1+2 Ab+HIV1 p24 Ag IA Ql Non-Reactive Normal Nonreactive [facility] Comment on above: Order Comment: The b eta-hydroxybutyrate test performance characteristics have been validated by [facility]. This test has not been approved by the FDA; however such approval is not necessary. Performed By: #### 3 5255-9 #### QUIN Simon ([id number]) [facility] [address] [place] [address] 08060 MR ANGIO HEAD WO IV CONTRAST on 02-09-2025 MR ANGIO HEAD WO IV CONTRAST Interpreted By: Ranjan Trivedi, STUDY: MR BRAIN WO IV CONTRAST; MR ANGIO HEAD WO IV CONTRAST; MR VENOGRAPHY INTRACRANIAL WO IV CONTRAST; 02/10/2025 5:02 am INDICATION: Signs/Symptoms:intractabl e headache, sPEC; Signs/Symptoms:intractabl e NIELSEN, sPEC. COMPARISON: None. ACCESSION NUMBER(S): [id number]; [id number]; [id number] ORDERING CLINICIAN: CLAIR CASTRO TECHNIQUE: Axial diffusion, axial T2, axial FLAIR, axial gradient echo T2, coronal T1, and sagittal T1 weighted MRI images of the brain were obtained without intravenous contrast administration. In addition, ghfv-qs-dygnqh MRA and MRV images of the intracranial [...] no significant focal stenosis or aneurysm. The uhcg-fi-jydiic intracranial MRV is within normal limits without [...] no significant focal stenosis or aneurysm. The xyvb-wi-nrcuhx intracranial MRV is within normal limits without evidence of venous sinus thrombosis. MACRO: None. Signed by: Ranjan Trivedi 02/10/2025 5:28 AM Dictation workstation: [id number] [facility] MR BRAIN WO IV CONTRASTon MR BRAIN WO IV CONTRAST Interpreted By: Ranjan Trivedi, STUDY: MR BRAIN WO IV CONTRAST; MR ANGIO HEAD WO IV CONTRAST; MR VENOGRAPHY INTRACRANIAL WO IV CONTRAST; 02/10/2025 5:02 am INDICATION: Signs/Symptoms:intractabl e headache, sPEC; Signs/Symptoms:intractabl e NIELSEN, sPEC. COMPARISON: None. ACCESSION NUMBER(S): [id number]; [id number]; [id number] ORDERING CLINICIAN: CLAIR CASTRO TECHNIQUE: Axial diffusion, axial T2, axial FLAIR, axial gradient echo T2, coronal T1, and sagittal T1 weighted MRI images of the brain were obtained without intravenous contrast administration. In addition, veug-gi-yuycpi MRA and MRV images of the intracranial [...] no significant focal stenosis or aneurysm. The uhdl-dv-dmhbft intracranial MRV is within normal limits without [...] no significant focal stenosis or aneurysm. The kvmv-on-mvxxvn intracranial MRV is within normal limits without evidence of venous sinus thrombosis. MACRO: None. Signed by: Ranjan Trivedi 02/10/2025 5:28 AM Dictation workstation: [id number] [facility] MR VENOGRAPHY INTRACRANIAL W O IV CONTRASTon 02-09-2025 MR VENOGRAPHY INTRACRANIAL WO IV CONTRAST Interpreted By: Ranjan Trivedi, STUDY: MR BRAIN WO IV CONTRAST; MR ANGIO HEAD WO IV CONTRAST; MR VENOGRAPHY INTRACRANIAL WO IV CONTRAST; 02/10/2025 5:02 am INDICATION: Signs/Symptoms:intractabl e headache, sPEC; Signs/Symptoms:intractabl e NIELSEN, sPEC. COMPARISON: None. ACCESSION NUMBER(S): [id number]; [id number]; [id number] ORDERING CLINICIAN: CLAIR CASTRO TECHNIQUE: Axial diffusion, axial T2, axial FLAIR, axial gradient echo T2, coronal T1, and sagittal T1 weighted MRI images of the brain were obtained without intravenous contrast administration. In addition, wndv-ek-auwlzj MRA and MRV images of the intracranial [...] no significant focal stenosis or aneurysm. The wnds-do-fgtcbc intracranial MRV is within normal limits without [...] no significant focal stenosis or aneurysm. The wage-jw-npjycf intracranial MRV is within normal limits without evidence of venous sinus thrombosis. MACRO: None. Signed by: Ranjan Trivedi 02/10/2025 5:28 AM Dictation workstation: [id number] Normal [facility] Rubella virus IgG IA Qnon Rubella virus IgG IA Ql Positive Normal Negative [facility] Comment on above: Order Comment: The b eta-hydroxybutyrate test performance characteristics have been validated by [facility]. This test has not been approved by the FDA; however such approval is not necessary. Performed By: #### 3 5255-9 #### QUIN Simon ([id number]) [facility] [address] [place] [address] Rubella virus IgG Qn (S) 1.5 IA Normal <=0.7 IA [facility] Comment on above: Order Comment: The b eta-hydroxybutyrate test performance characteristics have been validated by [facility]. This test has not been approved by the FDA; however such approval is not necessary. Performed By: #### 3 5255-9 #### QUIN Simon ([id number]) [facility] [address] [place] [address] Syphilis Screen with ReflexO rdered By: Alexandre Kenny on 02-09-2025 T. pallidum IgG+IgM IA Ql (S) Non-Reactive Nonreactive [facility] Comment on above: No significant level of Treponema pallidum antibody detected. Repeat testing in 2 to 4 weeks may be considered if early infection or incubating syphilis infection is suspected. T. pallidum IgG+IgM IA Ql (S )Ordered By: Alexandre Kenny on 02-09-2025 Interpretation and review of laboratory results Normal [facility] Beta hydroxybutyrate [Mass o r moles/Vol]on 02-08-2025 Beta hydroxybutyrate [Moles/Vol] 0.15 mmol/L 0.02 - 0.27 mmol/L [facility] The beta-hydroxybuty rate test performance characteristics have been validated by [facility]. This test has not been approved by the FDA; however such approval is not necessary. [facility] Beta hydroxybutyrate [Moles/Vol] 0.15 mmol/L Normal 0.02-0.27 [facility] Comment on above: Order Comment: The b eta-hydroxybutyrate test performance characteristics have been validated by [facility]. This test has not been approved by the FDA; however such approval is not necessary. Performed By: #### 3 084-1 #### QUIN Simon ([id number]) [facility] [address] [place] [address] Blood type and Indirect anti body screen panel (Bld)on 02-08-2025 ABO group Nom (Bld) O [facility] Blood group antibody screen Ql Negative [facility] D Ag Ql (Bld) Positive [facility] ABO group Nom (Bld) O Normal [facility] Comment on above: Performed By: #### 3 084-1 #### QUIN Simon ([id number]) [facility] [address] [place] [address] Blood group antibody screen Ql Negative [facility] Comment on above: Performed By: #### 3 084-1 #### QUIN Simon ([id number]) [facility] [address] [place] [address] D Ag Ql (Bld) Positive Normal [facility] Comment on above: Performed By: #### 3 084-1 #### QUIN Simon ([id number]) [facility]) [address] [place] [address] 66883 CBC panel Auto (Bld)on 02-08 Erythrocyte distribution width (RBC) [Ratio] 13.2 % 11.5 - 14.5 % [facility] Hematocrit (Bld) [Volume fraction] 36.6 % 36.0 - 46.0 % [facility] Hemoglobin (Bld) [Mass/Vol] 11.9 g/dL Low 12.0 - 16.0 g/dL [facility] Interpretation and review of laboratory results Abnormal [facility] MCH (RBC) [Entitic mass] 28.1 pg 26.0 - 34.0 pg [facility] MCHC (RBC) [Mass/Vol] 32.5 g/dL 32.0 - 36.0 g/dL [facility] MCV (RBC) [Entitic vol] 87 fL 80 - 100 fL [facility] Nucleated RBC/100 WBC (Bld) [Ratio] 0 % [facility] Platelets (Bld) [#/Vol] 297 10*3/uL [facility] RBC (Bld) [#/Vol] 4.23 10*6/uL [facility] WBC (Bld) [#/Vol] 15.8 10*3/uL High [facility] Erythrocyte distribution width (RBC) [Ratio] 13.2 % Normal 11.5-14.5 [facility] Comment on above: Performed By: #### 3 084-1 #### QUIN Simon ([id number]) [facility] [address] [place] [address] Hematocrit (Bld) [Volume fraction] 36.6 % Normal 36.0-46.0 [facility] Comment on above: Performed By: #### 3 084-1 #### QUIN Simon ([id number]) [facility] [address] [place] [address] 60273 Hemoglobin (Bld) [Mass/Vol] 11.9 g/dL Low 12.0-16.0 [facility] Comment on above: Performed By: #### 3 084-1 #### QUIN Simon ([id number]) [facility]) [address] [place] [address] 33754 MCH (RBC) [Entitic mass] 28.1 pg Normal 26.0-34.0 [facility] Comment on above: Performed By: #### 3 084-1 #### QUIN Simon ([id number]) [facility]) [address] [place] [address] 56578 MCHC (RBC) [Mass/Vol] 32.5 g/dL Normal 32.0-36.0 [facility] Comment on above: Performed By: #### 3 084-1 #### QUIN Simon ([id number]) [facility] [address] [place] [address] 58622 MCV (RBC) [Entitic vol] 87 fL Normal 80-100 [facility] Comment on above: Performed By: #### 3 084-1 #### QUIN Simon ([id number]) [facility] [address] [place] [address] 26312 Nucleated RBC/100 WBC (Bld) [Ratio] 0.0 /100 WBCs Normal 0.0-0.0 [facility] Comment on above: Performed By: #### 3 084-1 #### QUIN Simon ([id number]) [facility] [address] [place] [address] 59573 Platelets (Bld) [#/Vol] 297 x10*3/uL Normal 150-450 [facility] Comment on above: Performed By: #### 3 084-1 #### QUIN Simon ([id number]) [facility] [address] [place] [address] 76401 RBC (Bld) [#/Vol] 4.23 x10*6/uL Normal 4.00-5.20 [facility] Comment on above: Performed By: #### 3 084-1 #### QUIN Simon ([id number]) [facility] [address] [place] [address] WBC (Bld) [#/Vol] 15.8 x10*3/uL High 4.4-11.3 [facility] Comment on above: Performed By: #### 3 084-1 #### QUIN HARTMAN L ([id number]) [facility] [address] [place] [address] Comprehensive metabolic 2000 panelon 02-08-2025 Albumin BCP dye [Mass/Vol] 3.5 g/dL 3.4 - 5.0 g/dL [facility] ALP [Catalytic activity/Vol] 89 U/L 33 - 110 U/L [facility] ALT With P-5'-P [Catalytic activity/Vol] 7 U/L 7 - 45 U/L [facility] Comment on above: Patients treated wit h Sulfasalazine may generate falsely decreased results for ALT. Anion gap [Moles/Vol] 13 mmol/L 10 - 2 0 mmol/L [facility] AST With P-5'-P [Catalytic activity/Vol] 9 U/L 9 - 39 U/L [facility] Bilirubin [Mass/Vol] 0.5 mg/dL 0.0 - 1 .2 mg/dL [facility] Calcium [Mass/Vol] 9.4 mg/dL 8.6 - 10. 6 mg/dL [facility] Chloride [Moles/Vol] 106 mmol/L 98 - 10 7 mmol/L [facility] CO2 [Moles/Vol] 21 mmol/L 21 - 32 mmol/L [facility] Creatinine [Mass/Vol] 0.51 mg/dL 0.50 - 1.05 mg/dL [facility] eGFR - PINF [facility] Comment on above: Calculations of zoya mated GFR are performed using the 2020 CKD-EPI Study Refit equation without the race variable for the IDMS-Traceable creatinine methods. https://jasn.asnjournals.org/content/early//ASN.900011 3390 Glucose [Mass/Vol] 104 mg/dL High 74 - 99 mg/dL [facility] Interpretation and review of laboratory results Abnormal [facility] Potassium [Moles/Vol] 4.1 mmol/L 3.5 - 5.3 mmol/L [facility] Protein [Mass/Vol] 6.5 g/dL 6.4 - 8.2 g/dL [facility] Sodium [Moles/Vol] 136 mmol/L 136 - 145 mmol/L [facility] Urea nitrogen [Mass/Vol] 9 mg/dL 6 - 23 mg/dL [facility] Albumin BCP dye [Mass/Vol] 3.5 g/dL Normal 3.4-5.0 [facility] Comment on above: Performed By: #### 3 084-1 #### QUIN Simon ([id number]) [facility]) [address] [place] [address] 48874 ALP [Catalytic activity/Vol] 89 U/L Normal 33-110 [facility] Comment on above: Performed By: #### 3 084-1 #### QUIN Simon ([id number]) [facility]) [address] [place] [address] 18608 ALT With P-5'-P [Catalytic activity/Vol] 7 U/L Normal 7-45 [facility] Comment on above: Result Comment: Nguyen ents treated with Sulfasalazine may generate falsely decreased results for ALT. Performed By: #### 3 084-1 #### QUIN Simon ([id number]) [facility]) [address] [place] [address] Anion gap [Moles/Vol] 13 mmol/L Normal 10-20 [facility] Comment on above: Performed By: #### 3 084-1 #### QUIN Simon ([id number]) [facility] [address] [place] [address] AST With P-5'-P [Catalytic activity/Vol] 9 U/L Normal 9-39 [facility] Comment on above: Performed By: #### 3 084-1 #### QUIN HARTMAN L ([id number]) [facility]) [address] [place] [address] 24827 Bilirubin [Mass/Vol] 0.5 mg/dL Normal 0.0-1.2 [facility] Comment on above: Performed By: #### 3 084-1 #### QUIN HARTMAN L ([id number]) [facility]) [address] [place] [address] 22591 Calcium [Mass/Vol] 9.4 mg/dL Normal 8.6-10.6 [facility] Comment on above: Performed By: #### 3 084-1 #### QUIN HARTMAN L ([id number]) [facility]) [address] [place] [address] 54455 Chloride [Moles/Vol] 106 mmol/L Normal 98-107 [facility] Comment on above: Performed By: #### 3 084-1 #### QUIN HARTMAN L ([id number]) [facility] [address] [place] [address] CO2 [Moles/Vol] 21 mmol/L Normal 21-32 [facility] Comment on above: Performed By: #### 3 084-1 #### QUIN HARTMAN L ([id number]) [facility]) [address] [place] [address] 36613 Creatinine [Mass/Vol] 0.51 mg/dL Normal 0.50-1.05 [facility] Comment on above: Performed By: #### 3 084-1 #### QUIN HARTMAN L ([id number]) [facility]) [address] [place] [address] 87471 GFR/1.73 sq M.predicted MDRD (S/P/Bld) [Vol rate/Area] mL/min/{1.73_m2} Normal >60 [facility] Comment on above: Result Comment: Calc ulations of estimated GFR are performed using the 2020 CKD-EPI Study Refit equation without the race variable for the IDMS-Traceable creatinine methods. https://jasn.asnjournals.org/content//ASN.040518 3089 Performed By: #### 3 084-1 #### QUIN Simon ([id number]) [facility]) [address] [place] [address] Glucose [Mass/Vol] 104 mg/dL High 74-99 [facility] Comment on above: Performed By: #### 3 084-1 #### QUIN Simon ([id number]) [facility] [address] [place] [address] 56641 Potassium [Moles/Vol] 4.1 mmol/L Normal 3.5-5.3 [facility] Comment on above: Performed By: #### 3 084-1 #### QUIN Simon ([id number]) [facility] [address] [place] [address] 40418 Protein [Mass/Vol] 6.5 g/dL Normal 6.4-8.2 [facility] Comment on above: Performed By: #### 3 084-1 #### QUIN Simon ([id number]) [facility]) [address] [place] [address] 24881 Sodium [Moles/Vol] 136 mmol/L Normal 136-145 [facility] Comment on above: Performed By: #### 3 084-1 #### QUIN HARTMAN L ([id number]) [facility]) [address] [place] [address] 13726 Urea nitrogen [Mass/Vol] 9 mg/dL Normal 6-23 [facility] Comment on above: Performed By: #### 3 084-1 #### QUIN Simon ([id number]) [facility]) [address] [place] [address] 69345 Gas panel (BldV)on 04-06-202 5 Anion gap 4 (BldV) [Moles/Vol] 11 mmol/L 10.0 - 25.0 mmol/L [facility] Base excess Calc (BldV) [Moles/Vol] -3.2000 mmol/L Low -2.0 - 3.0 mmol/L [facility] Calcium.ionized (BldV) [Moles/Vol] 1.24 mmol/L 1.10 - 1.33 mmol/L [facility] Chloride (BldV) [Moles/Vol] 106 mmol/L 98 - 107 mmol/L [facility] CO2 (BldV) [Partial pressure] 30 mm[Hg] Low [facility] Glucose [Mass/Vol] 110 mg/dL High 74 - 99 mg/dL [facility] HCO3 (Bld) [Moles/Vol] 19.9 mmol/L Low 22.0 - 26.0 mmol/L [facility] Hematocrit Est (Bld) [Volume fraction] 44 % 36.0 - 46.0 % [facility] Hemoglobin (Bld) [Mass/Vol] 14.8 g/dL 12.0 - 16.0 g/dL [facility] Inhaled oxygen concentration 21 % [facility] Interpretation and review of laboratory results Abnormal [facility] Lactate (BldV) [Moles/Vol] 1 mmol/L 0.4 - 2.0 mmol/L [facility] Oxygen (BldV) [Partial pressure] 71 mm[Hg] High [facility] Oxygen saturation in Venous blood 96 % High 45 - 75 % [facility] Oxyhemoglobin (BldV) [Mass fraction] 93.3 % High 45.0 - 75.0 % [facility] pH (BldV) 7.43 [pH] 7.33 - 7.43 pH [facility] Potassium (BldV) [Moles/Vol] 3.8 mmol/L 3.5 - 5.3 mmol/L [facility] Sodium (BldV) [Moles/Vol] 133 mmol/L Low 136 - 145 mmol/L [facility] Anion gap 4 (BldV) [Moles/Vol] 11.0 mmol/L Normal 10.0-25.0 [facility] Comment on above: Performed By: #### 4 548-4 #### QUIN Simon ([id number]) [facility] [address] [place] [address] 82389 Base excess Calc (BldV) [Moles/Vol] -3.2000 mmol/L Low -2.0-3.0 [facility] Comment on above: Performed By: #### 4 548-4 #### QUIN Simon ([id number]) [facility] [address] [place] [address] 93062 Calcium.ionized (BldV) [Moles/Vol] 1.24 mmol/L Normal 1.10-1.33 [facility] Comment on above: Performed By: #### 4 548-4 #### QUIN Simon ([id number]) [facility] [address] [place] [address] 45972 Chloride (BldV) [Moles/Vol] 106 mmol/L Normal 98-107 [facility] Comment on above: Performed By: #### 4 548-4 #### QUIN Simon ([id number]) [facility] [address] [place] [address] 68939 CO2 (BldV) [Partial pressure] 30 mm Hg Low 41-51 [facility] Comment on above: Performed By: #### 4 548-4 #### QUIN Simon ([id number]) [facility] [address] [place] [address] 95449 Glucose [Mass/Vol] 110 mg/dL High 74-99 [facility] Comment on above: Performed By: #### 4 548-4 #### QUIN Simon ([id number]) [facility]) [address] [place] [address] 96108 HCO3 (Bld) [Moles/Vol] 19.9 mmol/L Low 22.0-26.0 [facility] Comment on above: Performed By: #### 4 548-4 #### QUIN Simon ([id number]) [facility]) [address] [place] [address] 68613 Hematocrit Est (Bld) [Volume fraction] 44.0 % Normal 36.0-46.0 [facility] Comment on above: Performed By: #### 4 548-4 #### QUIN Simon ([id number]) [facility]) [address] [place] [address] 20903 Hemoglobin (Bld) [Mass/Vol] 14.8 g/dL Normal 12.0-16.0 [facility] Comment on above: Performed By: #### 4 548-4 #### QUIN Simon ([id number]) [facility] [address] [place] [address] 28363 Inhaled oxygen concentration 21 % Normal [facility] Comment on above: Performed By: #### 4 548-4 #### QUIN Simon ([id number]) [facility]) [address] [place] [address] 73198 Lactate (BldV) [Moles/Vol] 1.0 mmol/L Normal 0.4-2.0 [facility] Comment on above: Performed By: #### 4 548-4 #### QUIN Simon ([id number]) [facility]) [address] [place] [address] 13227 Oxygen (BldV) [Partial pressure] 71 mm Hg High 35-45 [facility] Comment on above: Performed By: #### 4 548-4 #### QUIN Simon ([id number]) [facility]) [address] [place] [address] 59884 Oxygen saturation in Venous blood 96 % High 45-75 [facility] Comment on above: Performed By: #### 4 548-4 #### QUIN Simon ([id number]) [facility]) [address] [place] [address] 60921 Oxyhemoglobin (BldV) [Mass fraction] 93.3 % High 45.0-75.0 [facility] Comment on above: Performed By: #### 4 548-4 #### QUIN Simon ([id number]) [facility]) [address] [place] [address] 18844 pH (BldV) 7.43 [pH] Normal 7.33-7.43 [facility] Comment on above: Performed By: #### 4 548-4 #### QUIN Simon ([id number]) [facility]) [address] [place] [address] 26370 Potassium (BldV) [Moles/Vol] 3.8 mmol/L Normal 3.5-5.3 [facility] Comment on above: Performed By: #### 4 548-4 #### QUIN Simon ([id number]) [facility]) [address] [place] [address] 44186 Sodium (BldV) [Moles/Vol] 133 mmol/L Low 136-145 [facility] Comment on above: Performed By: #### 4 548-4 #### QUIN Simon ([id number]) [facility]) [address] [place] [address] 86823 Glucose Test strip manual (B ld) [Mass/Vol]on 02-08-2025 Glucose [Mass/Vol] 117 mg/dL High 74 - 99 mg/dL [facility] Interpretation and review of laboratory results Abnormal [facility] Glucose [Mass/Vol] 117 mg/dL High 74-99 [facility] Comment on above: Performed By: #### 3 084-1 #### QUIN Simon ([id number]) [facility] [address] [place] [address] 94587 Glucose [Mass/Vol] 140 mg/dL High 74 - 99 mg/dL [facility] Interpretation and review of laboratory results Abnormal [facility] Glucose [Mass/Vol] 140 mg/dL High 74-99 [facility] Comment on above: Performed By: #### 4 548-4 #### QUIN Simon ([id number]) [facility]) [address] [place] [address] Hepatitis B virus surface Ag on 02-08-2025 HBV surface Ag IA Ql Non-Reactive Normal Nonreactive U [facility] Comment on above: Result Comment: Biot in interference may cause falsely decreased results. Patients taking a Biotin dose of up to 5 mg/day should refrain from taking Biotin for 24 hours before sample collection. Providers may contact their local laboratory for further information. Performed By: #### 3 5255-9 #### QUIN Simon ([id number]) [facility]) [address] [place] [address] 68331 Influenza virus A and B and SARS-CoV-2 (COVID-19) identified JYOTI+probe Nom (Resp)on 02-08-2025 FLUAV RNA JYOTI+probe Ql (Resp) Not detected Not Detected [facility] FLUBV RNA JYOTI+probe Ql (Resp) Not detected Not Detected [facility] Interpretation and review of laboratory results Normal [facility] SARS-CoV-2 (COVID-19) RNA JYOTI+probe Ql (Resp) Not detected Not Detected [facility] This assay is an FDA-cleared, in vitro diagnostic nucleic acid amplification test for the qualitative detection and differentiation of SARS CoV-2/ Influenza A/B from nasopharyngeal specimens collected from individuals with signs and symptoms of respiratory tract infections, and has been validated for use at [facility]. Negative results do not preclude COVID-19/ Influenza A/B infections and should not be used as the sole basis for diagnosis, treatment, or other management decisions. Testing for SARS CoV-2 is recommended only for patients who meet current clinical and/or epidemiological criteria defined by federal, state, or local public health directives. [facility] FLUAV RNA JYOTI+probe Ql (Resp) Not detected Normal Not Detected [facility] Comment on above: Order Comment: This assay is an FDA-cleared, in vitro diagnostic nucleic acid amplification test for the qualitative detection and differentiation of SARS CoV-2/ Influenza A/B from nasopharyngeal specimens collected from individuals with signs and symptoms of respiratory tract infections, and has been validated for use at [facility]. Negative results do not preclude COVID-19/ Influenza A/B infections and should not be used as the sole basis for diagnosis, treatment, or other management decisions. Testing for SARS CoV-2 is recommended only for patients who meet current clinical and/or epidemiological criteria defined by federal, state, or local public health directives. Performed By: #### 3 084-1 #### QUIN Simon ([id number]) [facility]) [address] [place] [address] FLUBV RNA JYOTI+probe Ql (Resp) Not detected Normal Not Detected [facility] Comment on above: Order Comment: This assay is an FDA-cleared, in vitro diagnostic nucleic acid amplification test for the qualitative detection and differentiation of SARS CoV-2/ Influenza A/B from nasopharyngeal specimens collected from individuals with signs and symptoms of respiratory tract infections, and has been validated for use at [facility]. Negative results do not preclude COVID-19/ Influenza A/B infections and should not be used as the sole basis for diagnosis, treatment, or other management decisions. Testing for SARS CoV-2 is recommended only for patients who meet current clinical and/or epidemiological criteria defined by federal, state, or [facility] public health directives. Performed By: #### 3 084-1 #### QUIN Simon ([id number]) [facility] ([place] [id number] SARS-CoV-2 (COVID-19) RNA JYOTI+probe Ql (Resp) Not detected Normal Not Detected [facility] Comment on above: Order Comment: This assay is an FDA-cleared, in vitro diagnostic nucleic acid amplification test for the qualitative detection and differentiation of SARS CoV-2/ Influenza A/B from nasopharyngeal specimens collected from individuals with signs and symptoms of respiratory tract infections, and has been validated for use at [facility]. Negative results do not preclude COVID-19/ Influenza A/B infections and should not be used as the sole basis for diagnosis, treatment, or other management decisions. Testing for SARS CoV-2 is recommended only for patients who meet current clinical and/or epidemiological criteria defined by federal, state, or local public health directives. Performed By: #### 3 084-1 #### QUIN Simon ([id number]) [facility]) [address] [place] [address] 16194 Lactate Dehydrogenaseon LDH Lactate to pyruvate reaction [Catalytic activity/Vol] 185 U/L 84 - 246 U/L [facility] Lactate dehydrogenaseon LDH Lactate to pyruvate reaction [Catalytic activity/Vol] 185 U/L Normal 84-246 [facility] Comment on above: Performed By: #### 3 084-1 #### QUIN Simon ([id number]) [facility]) [address] [place] [address] 03703 Lipaseon 02-08-2025 Lipase [Catalytic activity/Vol] 13 U/L 9 - 82 U/L [facility] Lipase [Catalytic activity/V ol]on 02-08-2025 Interpretation and review of laboratory results Normal [facility] Venipuncture immedia tely after or during the administration of Metamizole may lead to falsely low results. Testing should be performed immediately prior to Metamizole dosing. [facility] No Panel Informationon 02-08 Interpretation and review of laboratory results Normal [facility] Proteinon 02-08-2025 Protein Qn (U) 33 mg/dL High 5-24 [facility] Comment on above: Performed By: #### 3 084-1 #### QUIN Simon ([id number]) [facility]) [address] [place] [address] 15110 Protein Qn (U)on 02-08-2025 Creatinine (U) [Mass/Vol] 190.1 mg/dL 20.0 - 320.0 mg/dL [facility] Interpretation and review of laboratory results Abnormal [facility] Protein/Creatinine (U) [Mass ratio] 0.17 mg/g [facility] Creatinine (U) [Mass/Vol] 190.1 mg/dL Normal 20.0-320.0 [facility] Comment on above: Performed By: #### 3 084-1 #### QUIN Simon ([id number]) [facility]) [address] [place] [address] Protein/Creatinine (U) [Mass ratio] 0.17 mg/mg Creat Normal 0.00-0.17 [facility] Comment on above: Performed By: #### 3 084-1 #### QUIN Simon ([id number]) [facility]) [address] [place] [address] 81125 Protein, Urine Randomon - Protein Qn (U) 33 mg/dL High 5 - 24 mg/dL [facility] Streptococcus.beta-hemolytic on 02-08-2025 Streptococcus.beta-he molytic Org specific cx Ql (Genital specimen) Test: Group B Streptococcus (GBS) Screen, Culture Specimen Source: Vaginal/Rectal Specimen Type: Swab Specimen Date: 02/08/20252351 Result Date: 02/24/2025848 Result Status: Edited Result - FINAL Abnormal: Yes Resulting Lab: [facility] [address] [place], [place] [id number] CULTURE Isolated: Streptococcus agalactiae (Group B Streptococcus) (Abnormal) Streptococcus agalactiae (Group B Streptococcus) is universally susceptible to beta-lactam antibiotics and vancomycin. Routine susceptibility testing not performed. For penicillin allergic patients, please contact the laboratory within 5 days of collection at to request susceptibility testing. Abnormal [facility] Comment on above: Performed By: #### 1 4804-9 #### QUIN Simon ([id number]) [facility]) [address] [place] [address] 14351 Treponema pallidum Ab.IgG+Ig Mon 02-08-2025 T. pallidum IgG+IgM IA Ql (S) Non-Reactive Normal Nonreactive [facility] Comment on above: Result Comment: No s ignificant level of Treponema pallidum antibody detected. Repeat testing in 2 to 4 weeks may be considered if early infection or incubating syphilis infection is suspected. Performed By: #### 2 4323-8 #### QUIN Simon ([id number]) [facility]) [address] [place] [address] 16667 Triacylglycerol lipaseon Lipase [Catalytic activity/Vol] 13 U/L Normal 9-82 [facility] Comment on above: Order Comment: Venip uncture immediately after or during the administration of Metamizole may lead to falsely low results. Testing should be performed immediately prior to Metamizole dosing. Performed By: #### 3 084-1 #### QUIN Simon ([id number]) [facility]) [address] [place] [address] 63488 Urateon 02-08-2025 Urate [Mass/Vol] 3.8 mg/dL Normal 2.3-6.7 [facility] Comment on above: Result Comment: Jessica puncture immediately after or during the administration of Metamizole may lead to falsely low results. Testing should be performed immediately prior to Metamizole dosing. Performed By: #### 3 084-1 #### QUIN Simon ([id number]) [facility]) [address] [place] [address] 44894 Urate [Mass/Vol]on Interpretation and review of laboratory results Normal [facility] Uric Acidon 02-08-2025 Urate [Mass/Vol] 3.8 mg/dL 2.3 - 6.7 mg/dL [facility] Comment on above: Venipuncture immedia tely after or during the administration of Metamizole may lead to falsely low results. Testing should be performed immediately prior to Metamizole dosing. Glucose Test strip manual (B ld) [Mass/Vol]on 02-05-2025 Glucose [Mass/Vol] 175 mg/dL High 74-99 [facility] Comment on above: Performed By: #### 4 548-4 #### QUIN Simon ([id number]) [facility]) [address] [place] [address] 47253 US OB FOLLOW UP TRANSABDOMIN AL APPROACHon 02-05-2025 US OB FOLLOW UP TRANSABDOMINAL APPROACH Interpreted by: Carlos, Christopher Indication ======== Growth for Class 3 Obesity [...] normal amount -No malformations by limited survey -[facility] 06/12 Thank you for allowing us to [...] EFW (oz) 4 oz EFW by: Hadlock (KTQ-JH-OS-FL) Extended Oil Agent 2.7 mm Head / Face / Neck [...] Suboptimal view: limited by late gestational age [facility] US for pregnancyon Interpreted by: Carline [...] normal amount -No malformations by limited survey -[facility] 06/12 Thank you for allowing [...] EFW (oz) 4 oz EFW by: Hadlock (BSQ-FN-DV-FL) Extended Oil Agent 2.7 mm Head / Face / Neck [...] Gestational- on Insulin History ====== General History Qywxqt471 cm Height (ft)5 ft Height (in)4 in Previous Outcomes Smguxjo47 Para5 Children born living ?37w1 Pregnancies delivered at term (T)1 Pregnancies delivered (P)4 Abortions (A)9 Living children (L)5 Children born living <37w4 Miscarriages9 Other:Vaginal Delivery Maternal Assessment Wodawf439 cm Height (ft)5 ft Height (in)4 in Ottqiw084 kg Weight (lb)285 lb Weight gain0 kg Weight gain (lb)0 lb BMI48.92 kg/m Physical Exam Initial weight (lb)285 lb ========= Schilling . Number of fetuses: 1 Dating ====== Cycle:LMP date not known [place] by prior aejzcuqjuq90 w + 3 d [place] by prior [...] normal amount -No malformations by limited survey -[facility] 06/12 Thank you for allowing [...] Biometry Standard BPD87.0 mm35w 1d >99% Hadlock HYV998.9 mm 89% INTERGROWTH-21st HC306.9 mm34w 1d 85% Hadlock AC315.1 mm35w 3d >99% Hadlock Femur61.1 mm31w 5d 44% Hadlock HC / AC0.97 EFW2,395 g34w 1d 99% Hadlock EFW (lb)5 lb EFW (oz)4 oz EFW by:Hadlock (OAI-WG-PC-FL) Extended Vp2.7 mm Head / Face / Neck Cephalic index0.81 69% Nicolaides Extremities / Bony Struc FL / BPD0.70 FL / HC0.20 FL / AC0.19 Other Structures RHO542 bpm Anatomy Cranium:Normal Lateral ventricles:Normal Midline falx:Normal [...] Suboptimal view: limited by late gestational age [facility] Work Phone: [facility] Work Phone: Radiology Study observation (narrative) [facility] Work Phone: CBC panel Auto (Bld)on 01-29 Erythrocyte distribution width (RBC) [Ratio] 13.4 % Normal 11.5-14.5 [facility] Comment on above: Performed By: #### 5 8410-2 #### BREEZY LOCO ([id number]) [facility] ([facility]) [address] [place] [address] Hematocrit (Bld) [Volume fraction] 37.0 % Normal 36.0-46.0 [facility] Comment on above: Performed By: #### 5 8410-2 #### BREEZY LOCO ([id number]) [facility] ([facility]) [address] [place] [address] Hemoglobin (Bld) [Mass/Vol] 11.8 g/dL Low 12.0-16.0 [facility] Comment on above: Performed By: #### 5 8410-2 #### BREEZY LOCO ([id number]) [facility] ([facility]) [address] [place] [address] MCH (RBC) [Entitic mass] 28.2 pg Normal 26.0-34.0 [facility] Comment on above: Performed By: #### 5 8410-2 #### BREEZY LOCO ([id number]) [facility] ([facility]) [address] [place] [address] MCHC (RBC) [Mass/Vol] 31.9 g/dL Low 32.0-36.0 [facility] Comment on above: Performed By: #### 5 8410-2 #### BREEZY LOCO ([id number]) [facility] ([facility]) [address] [place] [address] MCV (RBC) [Entitic vol] 88 fL Normal 80-100 [facility] Comment on above: Performed By: #### 5 8410-2 #### BREEZY LOCO ([id number]) [facility] ([facility]) [address] [place] [address] Nucleated RBC/100 WBC (Bld) [Ratio] 0.0 /100 WBCs Normal 0.0-0.0 [facility] Comment on above: Performed By: #### 5 8410-2 #### BREEZY LOCO ([id number]) [facility] ([facility]) [address] [place] [address] Platelets (Bld) [#/Vol] 261 x10*3/uL Normal 150-450 [facility] Comment on above: Performed By: #### 5 8410-2 #### BREEZY LOCO ([id number]) [facility] ([facility]) [address] [place] [address] RBC (Bld) [#/Vol] 4.19 x10*6/uL Normal 4.00-5.20 [facility] Comment on above: Performed By: #### 5 8410-2 #### BREEZY LOCO ([id number]) [facility] ([facility]) [address] [place] [address] WBC (Bld) [#/Vol] 15.6 x10*3/uL High 4.4-11.3 [facility] Comment on above: Performed By: #### 5 8410-2 #### BREEZY LOCO ([id number]) [facility] ([facility]) [address] [place] [address] Comprehensive metabolic 2000 panelon 01-29-2025 Albumin BCP dye [Mass/Vol] 3.4 g/dL Normal 3.4-5.0 [facility] Comment on above: Performed By: #### 2 4323-8 #### BREEZY LOCO ([id number]) [facility] ([facility]) [address] [place] [address] ALP [Catalytic activity/Vol] 73 U/L Normal 33-110 [facility] Comment on above: Performed By: #### 2 4323-8 #### BREEZY LOCO ([id number]) [facility] ([facility]) [address] [place] [address] ALT With P-5'-P [Catalytic activity/Vol] 6 U/L Low 7-45 [facility] Comment on above: Result Comment: Nguyen ents treated with Sulfasalazine may generate falsely decreased results for ALT. Performed By: #### 2 432-8 #### BREEZY LOCO ([id number]) [facility] ([facility]) [address] [place] [address] Anion gap [Moles/Vol] 15 mmol/L Normal 10-20 [facility] Comment on above: Performed By: #### 2 432-8 #### BREEZY LOCO ([id number]) [facility] ([facility]) [address] [place] [address] AST With P-5'-P [Catalytic activity/Vol] 9 U/L Normal 9-39 [facility] Comment on above: Performed By: #### 2 4323-8 #### BREEZY LOCO ([id number]) [facility] ([facility]) [address] [place] [address] Bilirubin [Mass/Vol] 0.5 mg/dL Normal 0.0-1.2 [facility] Comment on above: Performed By: #### 2 432-8 #### BREEZY LOCO ([id number]) [facility] ([facility]) [address] [place] [address] Calcium [Mass/Vol] 8.9 mg/dL Normal 8.6-10.3 [facility] Comment on above: Performed By: #### 2 4323-8 #### BREEZY LOCO ([id number]) [facility] ([facility]) [address] [place] [address] Chloride [Moles/Vol] 105 mmol/L Normal 98-107 [facility] Comment on above: Performed By: #### 2 4323-8 #### BREEZY LOCO ([id number]) [facility] ([facility]) [address] [place] [address] CO2 [Moles/Vol] 21 mmol/L Normal 21-32 [facility] Comment on above: Performed By: #### 2 4323-8 #### BREEZY LOCO ([id number]) [facility] ([facility]) [address] [place] [address] Creatinine [Mass/Vol] 0.55 mg/dL Normal 0.50-1.05 [facility] Comment on above: Performed By: #### 2 4323-8 #### BREEZY LOCO ([id number]) [facility] ([facility]) [address] [place] [address] GFR/1.73 sq M.predicted MDRD (S/P/Bld) [Vol rate/Area] mL/min/{1.73_m2} Normal >60 [facility] Comment on above: Result Comment: Calc ulations of estimated GFR are performed using the 2020 CKD-EPI Study Refit equation without the race variable for the IDMS-Traceable creatinine methods. https://jasn.asnjournals.org/content//ASN.150581 0593 Performed By: #### 2 4323-8 #### BREEZY LOCO ([id number]) [facility] ([facility]) [address] [place] [address] Glucose [Mass/Vol] 93 mg/dL Normal 74-99 [facility] Comment on above: Performed By: #### 2 4323-8 #### BREEZY LOCO ([id number]) [facility] ([facility]) [address] [place] [address] Potassium [Moles/Vol] 3.6 mmol/L Normal 3.5-5.3 [facility] Comment on above: Performed By: #### 2 4323-8 #### BREEZY LOCO ([id number]) [facility] ([facility]) [address] [place] [address] Protein [Mass/Vol] 6.4 g/dL Normal 6.4-8.2 [facility] Comment on above: Performed By: #### 2 4323-8 #### BREEZY LOCO ([id number]) [facility] ([facility]) [address] [place] [address] Sodium [Moles/Vol] 137 mmol/L Normal 136-145 [facility] Comment on above: Performed By: #### 2 4323-8 #### BREEZY LOCO ([id number]) [facility] ([facility]) [address] [place] [address] Urea nitrogen [Mass/Vol] 6 mg/dL Normal 6-23 [facility] Comment on above: Performed By: #### 2 4323-8 #### BREEZY LOCO ([id number]) [facility] ([facility]) [address] [place] [address] Glucose Test strip manual (B ld) [Mass/Vol]on 01-29-2025 Glucose [Mass/Vol] 124 mg/dL High 74-99 [facility] Comment on above: Performed By: #### 4 548-4 #### QUIN Simon ([id number]) [facility] ([facility]) [address] [place] [address] MR/BMS.BPon 01-29-2025 MR/BMS.BP Normal [facility] US OB LIMITED 1+ FETUSESon 0 [...] ====== Transabdominal ultrasound examination. View: Sufficient Normal [facility] MR/BMS.BPon 01-27-2025 MR/BMS.BP Normal [facility] PROTEIN, TOTAL W/CREAT, RAND OM URINEon 01-23-2025 Creatinine (U) [Mass/Vol] 61 mg/dL Normal 20-275 [facility] Comment on above: Performed By: #### 1 799, 62310 #### [facility] [place] [address] Procurement Inspector: Salvador Swanson MD Protein (U) [Mass/Vol] 15 mg/dL Normal 5-24 [facility] Comment on above: Performed By: #### 1 859, 27674 #### [facility] [place] [address] Procurement Inspector: Salvador Swanson MD PROTEIN/CREATININE RATIO 246 mg/g creat High 24-184 [facility] Comment on above: Performed By: #### 1 339, 82222 #### [facility] [place] [address] Procurement Inspector: Salvador Swanson MD PROTEIN/CREATININE RATIO 0.246 mg/mg creat High 0.024-0.184 [facility] Comment on above: Performed By: #### 1 141, 89875 #### [facility] [place] [address] Procurement Inspector: Salvador Swanson MD CBC panel Auto (Bld)on 01-22 Erythrocyte distribution width (RBC) [Ratio] 13.4 % Normal 11.5-14.5 [facility] Comment on above: Performed By: #### 5 8410-2 #### BREEZY LOCO ([id number]) [facility] ([facility]) [address] [place] [address] Hematocrit (Bld) [Volume fraction] 36.7 % Normal 36.0-46.0 [facility] Comment on above: Performed By: #### 5 8410-2 #### BREEZY LOCO ([id number]) [facility] ([facility]) [address] [place] [address] Hemoglobin (Bld) [Mass/Vol] 11.8 g/dL Low 12.0-16.0 [facility] Comment on above: Performed By: #### 5 8410-2 #### BREEZY LOCO ([id number]) [facility] ([facility]) [address] [place] [address] MCH (RBC) [Entitic mass] 28.4 pg Normal 26.0-34.0 [facility] Comment on above: Performed By: #### 5 8410-2 #### BREEZY LOCO ([id number]) [facility] ([facility]) [address] [place] [address] MCHC (RBC) [Mass/Vol] 32.2 g/dL Normal 32.0-36.0 [facility] Comment on above: Performed By: #### 5 8410-2 #### BREEZY LOCO ([id number]) [facility] ([facility]) [address] [place] [address] MCV (RBC) [Entitic vol] 88 fL Normal 80-100 [facility] Comment on above: Performed By: #### 5 8410-2 #### BREEZY LOCO ([id number]) [facility] ([facility]) [address] [place] [address] Nucleated RBC/100 WBC (Bld) [Ratio] 0.0 /100 WBCs Normal 0.0-0.0 [facility] Comment on above: Performed By: #### 5 8410-2 #### BREEZY LOCO ([id number]) [facility] ([facility]) [address] [place] [address] Platelets (Bld) [#/Vol] 250 x10*3/uL Normal 150-450 [facility] Comment on above: Performed By: #### 5 8410-2 #### BREEZY LOCO ([id number]) [facility] ([facility]) [address] [place] [address] RBC (Bld) [#/Vol] 4.15 x10*6/uL Normal 4.00-5.20 [facility] Comment on above: Performed By: #### 5 8410-2 #### BREEZY LOCO ([id number]) [facility] ([facility]) [address] [place] [address] WBC (Bld) [#/Vol] 14.4 x10*3/uL High 4.4-11.3 [facility] Comment on above: Performed By: #### 5 8410-2 #### BREEZY LOCO ([id number]) [facility] ([facility]) [address] [place] [address] Comprehensive metabolic 2000 panelon 01-22-2025 Albumin BCP dye [Mass/Vol] 3.6 g/dL Normal 3.4-5.0 [facility] Comment on above: Performed By: #### 2 4323-8 #### BREEZY LOCO ([id number]) [facility] ([facility]) [address] [place] [address] ALP [Catalytic activity/Vol] 79 U/L Normal 33-110 [facility] Comment on above: Performed By: #### 2 4323-8 #### BREEZY LOCO ([id number]) [facility] ([facility]) [address] [place] [address] ALT With P-5'-P [Catalytic activity/Vol] 7 U/L Normal 7-45 [facility] Comment on above: Result Comment: Nguyen ents treated with Sulfasalazine may generate falsely decreased results for ALT. Performed By: #### 2 4323-8 #### BREEZY LOCO ([id number]) [facility] ([facility]) [address] [place] [address] Anion gap [Moles/Vol] 14 mmol/L Normal 10-20 [facility] Comment on above: Performed By: #### 2 4323-8 #### BREEZY LOCO ([id number]) [facility] ([facility]) [address] [place] [address] AST With P-5'-P [Catalytic activity/Vol] 15 U/L Normal 9-39 [facility] Comment on above: Performed By: #### 2 4323-8 #### BREEZY LOCO ([id number]) [facility] ([facility]) [address] [place] [address] Bilirubin [Mass/Vol] 0.5 mg/dL Normal 0.0-1.2 [facility] Comment on above: Performed By: #### 2 4323-8 #### BREEZY LOCO ([id number]) [facility] ([facility]) [address] [place] [address] Calcium [Mass/Vol] 9.0 mg/dL Normal 8.6-10.3 [facility] Comment on above: Performed By: #### 2 4323-8 #### BREEZY LOCO ([id number]) [facility] ([facility]) [address] [place] [address] Chloride [Moles/Vol] 105 mmol/L Normal 98-107 [facility] Comment on above: Performed By: #### 2 4323-8 #### BREEZY LOCO ([id number]) [facility] ([facility]) [address] [place] [address] CO2 [Moles/Vol] 18 mmol/L Low 21-32 [facility] Comment on above: Performed By: #### 2 4323-8 #### BREEZY LOCO ([id number]) [facility] ([facility]) [address] [place] [address] Creatinine [Mass/Vol] 0.47 mg/dL Low 0.50-1.05 [facility] Comment on above: Performed By: #### 2 4323-8 #### BREEZY LOCO ([id number]) [facility] ([facility]) [address] [place] [address] GFR/1.73 sq M.predicted MDRD (S/P/Bld) [Vol rate/Area] mL/min/{1.73_m2} Normal >60 [facility] Comment on above: Result Comment: Calc ulations of estimated GFR are performed using the 2020 CKD-EPI Study Refit equation without the race variable for the IDMS-Traceable creatinine methods. https://jasn.asnjournals.org/content/early//ASN.211431 5281 Performed By: #### 2 4323-8 #### BREEZY LOCO ([id number]) [facility] ([facility]) [address] [place] [address] Glucose [Mass/Vol] 122 mg/dL High 74-99 [facility] Comment on above: Performed By: #### 2 4323-8 #### BREEZY LOCO ([id number]) [facility] ([facility]) [address] [place] [address] Potassium [Moles/Vol] 3.8 mmol/L Normal 3.5-5.3 [facility] Comment on above: Performed By: #### 2 4323-8 #### BREEZY LOCO ([id number]) [facility] ([facility]) [address] [place] [address] Protein [Mass/Vol] 6.7 g/dL Normal 6.4-8.2 [facility] Comment on above: Performed By: #### 2 4323-8 #### BREEZY LOCO ([id number]) [facility] ([facility]) [address] [place] [address] Sodium [Moles/Vol] 133 mmol/L Low 136-145 [facility] Comment on above: Performed By: #### 2 4323-8 #### BREEZY LOCO ([id number]) [facility] ([facility]) [address] [place] [address] Urea nitrogen [Mass/Vol] 6 mg/dL Normal 6- [facility] Comment on above: Performed By: #### 2 4323-8 #### BREEZY LOCO ([id number]) [facility] ([facility]) [address] [place] [address] Glucose Test strip manual (B ld) [Mass/Vol]on 01-22-2025 Glucose [Mass/Vol] 178 mg/dL High 74 - 99 mg/dL [facility] Interpretation and review of laboratory results Abnormal [facility] Glucose [Mass/Vol] 178 mg/dL High 74-99 [facility] Comment on above: Performed By: #### 4 548-4 #### QUIN Simno ([id number]) [facility] ([facility]) [address] [place] [address] US OB LIMITED 1+ FETUSESon 0 01-22-2025 [...] Suboptimal view: limited by maternal body habitus [facility] US for pregnancyon Interpreted by: Judit [...] on Insulin. Polyhydramnios History ====== General History Pfjyld205 cm Height (ft)5 ft Height (in)4 in Previous Outcomes Ouckwih96 Para5 Children born living ?37w1 Pregnancies delivered at term (T)1 Pregnancies delivered (P)4 Abortions (A)9 Living children (L)5 Children born living <37w4 Miscarriages9 Other:Vaginal Delivery Maternal Assessment Pglxsg901 cm Height (ft)5 ft Height (in)4 in Bbfoqk445 kg Weight (lb)285 lb Weight gain0 kg Weight gain (lb)0 lb BMI48.92 kg/m Physical Exam Initial weight (lb)285 lb ========= Schilling . Number of fetuses: 1 Dating ====== Cycle:LMP date not known [place] by prior qtaocmeztx34 w + 3 d [place] by prior [...] Suboptimal view: limited by maternal body habitus [facility] Work Phone: Radiology Study observation (narrative) [facility] Work Phone: US for pregnancyOrdered By: Judit Jeffery on 01-22-2025 [facility] Work Phone: CBC (H/H, RBC, INDICES, WBC, PLT)on 01-16-2025 Erythrocyte distribution width (RBC) [Ratio] 12.6 % Normal 11.0-15.0 [facility] Comment on above: Performed By: #### 1 75, 20844 #### [facility] of [address], [address] [place] [address] Procurement Inspector: Salvador Swanson MD Hematocrit (Bld) [Volume fraction] 35.3 % Normal 35.0-45.0 [facility] Comment on above: Performed By: #### 1 759, 89543 #### [facility] [address], [address] [place] [address] Procurement Inspector: Salvador Swanson MD Hemoglobin (Bld) [Mass/Vol] 11.8 g/dL Normal 11.7-15.5 [facility] Comment on above: Performed By: #### 1 58, 99478 #### [facility] of [address], [address] [place] [address] Procurement Inspector: Salvador Swanson MD MCH (RBC) [Entitic mass] 29.4 pg Normal 27.0-33.0 [facility] Comment on above: Performed By: #### 1 74, 33007 #### [facility] of [address], [address] [place] [address] Procurement Inspector: Salvador Swanson MD MCHC (RBC) [Mass/Vol] 33.4 g/dL Normal 32.0-36.0 [facility] Comment on above: Result Comment: For adults, a slight decrease in the calculated MCHC value (in the range of 30 to 32 g/dL) is most likely not clinically significant; however, it should be interpreted with caution in correlation with other red cell parameters and the patient's clinical condition. Performed By: #### 1 32, 89629 #### [facility] [place] [address] Procurement Inspector: Salvador Swanson MD MCV (RBC) [Entitic vol] 87.8 fL Normal 80.0-100.0 [facility] Comment on above: Performed By: #### 1 58, 16919 #### [facility] [address], [address] [place] [address] Procurement Inspector: Salvador Swanson MD Platelet mean volume (Bld) [Entitic vol] 10.4 fL Normal 7.5-12.5 [facility] Comment on above: Performed By: #### 1 759, 93808 #### [facility] of [address], [address] [place] [address] Procurement Inspector: Salvador Swanson MD Platelets (Bld) [#/Vol] 238 10*3/uL Normal 140-400 [facility] Comment on above: Performed By: #### 1 759, 71990 #### [facility] of [address], [address] [place] [address] Procurement Inspector: Salvador Swanson MD RBC (Bld) [#/Vol] 4.02 10*6/uL Normal 3.80-5.10 [facility] Comment on above: Performed By: #### 1 759, 73351 #### [facility] of [address], [address] [place] [address] Procurement Inspector: Salvador Swanson MD WBC (Bld) [#/Vol] 13.7 10*3/uL High 3.8-10.8 [facility] Comment on above: Performed By: #### 1 929, 18103 #### [facility] of [address], [address] [place] [address] Procurement Inspector: Salvador Swanson MD COMPREHENSIVE METABOLIC PANE L W/ANION GAPon 01-16-2025 Albumin [Mass/Vol] 3.4 g/dL Low 3.6-5.1 [facility] Comment on above: Performed By: #### 1 759, 15834 #### [facility] of [address], [address] [place] [address] Procurement Inspector: Salvador Swanson MD ALP [Catalytic activity/Vol] 64 U/L Normal 31-125 [facility] Comment on above: Performed By: #### 1 979, 82048 #### [facility] of [address], [address] [place] [address] Procurement Inspector: Salvador Swanson MD ALT [Catalytic activity/Vol] 5 U/L Low 6-29 [facility] Comment on above: Performed By: #### 1 091, 90445 #### [facility] [place] [address] Procurement Inspector: Salvador Swanson MD AST [Catalytic activity/Vol] 9 U/L Low 10-30 [facility] Comment on above: Performed By: #### 1 42, 44666 #### [facility] of [place] [address] Procurement Inspector: Salvador Swanson MD Bilirubin [Mass/Vol] 0.4 mg/dL Normal 0.2-1.2 [facility] Comment on above: Performed By: #### 1 901, 87654 #### [facility] [place] [address] Procurement Inspector: Salvador Swanson MD Calcium [Mass/Vol] 8.9 mg/dL Normal 8.6-10.2 [facility] Comment on above: Performed By: #### 1 350, 69831 #### [facility] [place] [address] Procurement Inspector: Salvador Swanson MD Chloride [Moles/Vol] 104 mmol/L Normal 98-110 [facility] Comment on above: Performed By: #### 1 261, 22954 #### [facility] [place] [address] Procurement Inspector: Salvador Swanson MD CO2 [Moles/Vol] 22 mmol/L Normal 20-32 [facility] Comment on above: Performed By: #### 1 037, 18009 #### [facility] [place] [address] Procurement Inspector: Salvador Swanson MD Creatinine [Mass/Vol] 0.62 mg/dL Normal 0.50-0.[address] [facility] Comment on above: Performed By: #### 1 034, 29044 #### [facility] [place] [address] Procurement Inspector: Salvador Swanson MD ELECTROLYTE BALANCE 12 mmol/L (calc) Normal 7-17 [facility] Comment on above: Performed By: #### 1 551, 89338 #### [facility] [place] [address] Procurement Inspector: Salvador Swanson MD GFR/1.73 sq M.predicted among non-blacks MDRD (S/P/Bld) [Vol rate/Area] 119 mL/min/{1.73_m2} Normal > OR = 60 [facility] Comment on above: Performed By: #### 1 033, 92865 #### [facility] [place] [address] Procurement Inspector: Salvador Swanson MD Glucose [Mass/Vol] 122 mg/dL High 65-99 [facility] Comment on above: Result Comment: Fasting reference interval For someone without known diabetes, a glucose value between 100 and 125 mg/dL is consistent with prediabetes and should be confirmed with a follow-up test. Performed By: #### 1 057, 39769 #### [facility] [place] [address] Procurement Inspector: Salvador Swanson MD Potassium [Moles/Vol] 3.6 mmol/L Normal 3.5-5.3 [facility] Comment on above: Performed By: #### 1 269, 18004 #### [facility] [place] [address] Procurement Inspector: Salvador Swanson MD Protein [Mass/Vol] 6.3 g/dL Normal 6.1-8.1 [facility] Comment on above: Performed By: #### 1 708, 65008 #### [facility] [place] [address] Procurement Inspector: Savlador Swanson MD Sodium [Moles/Vol] 138 mmol/L Normal 135-146 [facility] Comment on above: Performed By: #### 1 759, 84117 #### [facility] [address], [address] [place] [address] Procurement Inspector: Salvador Swanson MD Urea nitrogen [Mass/Vol] 6 mg/dL Low 7-25 [facility] Comment on above: Performed By: #### 1 759, 98312 #### [facility] [address], [address] [place] [address] Procurement Inspector: Salvador Swanson MD Glucose Test strip manual (B ld) [Mass/Vol]on 01-15-2025 Glucose [Mass/Vol] 118 mg/dL High 74 - 99 mg/dL [facility] Interpretation and review of laboratory results Abnormal [facility] Glucose [Mass/Vol] 118 mg/dL High 74-99 [facility] Comment on above: Performed By: #### 4 548-4 #### QUIN Simon ([id number]) [facility] ([facility]) [address] [place] [address] US OB FOLLOW UP TRANSABDOMIN AL APPROACHon [...] EFW (oz) 8 oz EFW by: Hadlock (AXU-MD-TN-FL) Extended Oil Agent 8.8 mm Head / Face / Neck [...] view: limited by late gestational age Normal [facility] US for pregnancyon 5 Interpreted by: Jasmina [...] EFW (oz) 8 oz EFW by: Hadlock (DRQ-FU-SP-FL) Extended Oil Agent 8.8 mm Head / Face / Neck [...] Gestational- on Insulin. History ====== General History Srzdsu526 cm Height (ft)5 ft Height (in)4 in Previous Outcomes Umtgdsc71 Para5 Children born living ?37w1 Pregnancies delivered at term (T)1 Pregnancies delivered (P)4 Abortions (A)9 Living children (L)5 Children born living <37w4 Miscarriages9 Other:Vaginal Delivery Maternal Assessment Ggkdev405 cm Height (ft)5 ft Height (in)4 in Mzglmm296 kg Weight (lb)285 lb Weight gain0 kg Weight gain (lb)0 lb BMI48.92 kg/m Physical Exam Initial weight (lb)285 lb ========= Schilling . Number of fetuses: 1 Dating ====== Cycle:LMP date not known [place] by prior [id number] w + 3 d [place] by prior [...] (lb)3 lb EFW (oz)8 oz EFW by:Hadlock (TMH-PR-GA-FL) Extended Vp8.8 mm Head / Face / Neck Cephalic index0.79 54% Nicolaides Extremities / Bony Struc FL / BPD0.73 FL / HC0.20 FL / AC0.22 Other Structures [id number] bpm Anatomy Cranium:Normal Lateral ventricles:Normal Midline falx:Normal [...] Suboptimal view: limited by late gestational age [facility] Work Phone: Radiology Study observation (narrative) [facility] Work Phone: US for pregnancyOrdered By: Jasmina Benítez on 01-15-2025 [facility] Work Phone: MR/BMS.BPon 01-13-2025 MR/BMS.BP Normal [facility] CBC panel Auto (Bld)on 01-08 Erythrocyte distribution width (RBC) [Ratio] 13.1 % 11.5 - 14.5 % [facility] Hematocrit (Bld) [Volume fraction] 36.8 % 36.0 - 46.0 % [facility] Hemoglobin (Bld) [Mass/Vol] 11.6 g/dL Low 12.0 - 16.0 g/dL [facility] Interpretation and review of laboratory results Abnormal [facility] MCH (RBC) [Entitic mass] 29.2 pg 26.0 - 34.0 pg [facility] MCHC (RBC) [Mass/Vol] 31.5 g/dL Low 32.0 - 36.0 g/dL [facility] MCV (RBC) [Entitic vol] 93 fL 80 - 100 fL [facility] Nucleated RBC/100 WBC (Bld) [Ratio] 0 % [facility] Platelets (Bld) [#/Vol] 232 10*3/uL [facility] RBC (Bld) [#/Vol] 3.97 10*6/uL Low [facility] WBC (Bld) [#/Vol] 15.6 10*3/uL High [facility] Erythrocyte distribution width (RBC) [Ratio] 13.1 % Normal 11.5-14.5 [facility] Comment on above: Performed By: #### 5 8410-2 #### QUIN Simon ([id number]) [facility] [address] [place] [address] 16328 Hematocrit (Bld) [Volume fraction] 36.8 % Normal 36.0-46.0 [facility] Comment on above: Performed By: #### 5 8410-2 #### QUIN Simon ([id number]) [facility] [address] [place] [address] 37093 Hemoglobin (Bld) [Mass/Vol] 11.6 g/dL Low 12.0-16.0 [facility] Comment on above: Performed By: #### 5 8410-2 #### QUIN Simon ([id number]) [facility] [address] [place] [address] 28480 MCH (RBC) [Entitic mass] 29.2 pg Normal 26.0-34.0 [facility] Comment on above: Performed By: #### 5 8410-2 #### QUIN Simon ([id number]) [facility] [address] [place] [address] 10903 MCHC (RBC) [Mass/Vol] 31.5 g/dL Low 32.0-36.0 [facility] Comment on above: Performed By: #### 5 8410-2 #### QUIN Simon ([id number]) [facility] [address] [place] [address] 22138 MCV (RBC) [Entitic vol] 93 fL Normal 80-100 [facility] Comment on above: Performed By: #### 5 8410-2 #### QUIN Simon ([id number]) [facility] [address] [place] [address] 55513 Nucleated RBC/100 WBC (Bld) [Ratio] 0.0 /100 WBCs Normal 0.0-0.0 [facility] Comment on above: Performed By: #### 5 8410-2 #### QUIN Simon ([id number]) [facility] [id number] [place] [address] 68875 Platelets (Bld) [#/Vol] 232 x10*3/uL Normal 150-450 [facility] Comment on above: Performed By: #### 5 8410-2 #### QUIN Simon ([id number]) [facility] [address] [place] [address] 33198 RBC (Bld) [#/Vol] 3.97 x10*6/uL Low 4.00-5.20 [facility] Comment on above: Performed By: #### 5 8410-2 #### QUIN Simon ([id number]) [facility] [address] [place] [address] 64089 WBC (Bld) [#/Vol] 15.6 x10*3/uL High 4.4-11.3 [facility] Comment on above: Performed By: #### 5 8410-2 #### QUIN Simon ([id number]) [facility] [address] [place] [address] 18641 Comprehensive metabolic 2000 panelon 01-08-2025 Albumin BCP dye [Mass/Vol] 3.3 g/dL Low 3.4 - 5.0 g/dL [facility] ALP [Catalytic activity/Vol] 65 U/L 33 - 110 U/L [facility] ALT With P-5'-P [Catalytic activity/Vol] 6 U/L Low 7 - 45 U/L [facility] Comment on above: Patients treated wit h Sulfasalazine may generate falsely decreased results for ALT. Anion gap [Moles/Vol] 16 mmol/L 10 - 2 0 mmol/L [facility] AST With P-5'-P [Catalytic activity/Vol] 9 U/L 9 - 39 U/L [facility] Bilirubin [Mass/Vol] 0.5 mg/dL 0.0 - 1 .2 mg/dL [facility] Calcium [Mass/Vol] 8.8 mg/dL 8.6 - 10. 6 mg/dL [facility] Chloride [Moles/Vol] 106 mmol/L 98 - 10 7 mmol/L [facility] CO2 [Moles/Vol] 18 mmol/L Low 21 - 32 mmol/L [facility] Creatinine [Mass/Vol] 0.5 mg/dL 0.50 - 1.05 mg/dL [facility] eGFR - PINF [facility] Comment on above: Calculations of zoya mated GFR are performed using the 2020 CKD-EPI Study Refit equation without the race variable for the IDMS-Traceable creatinine methods. https://jasn.asnjournals.org/content/early//ASN.996310 4947 Glucose [Mass/Vol] 94 mg/dL 74 - 99 mg/dL [facility] Interpretation and review of laboratory results Abnormal [facility] Potassium [Moles/Vol] 4 mmol/L 3.5 - 5.3 mmol/L [facility] Protein [Mass/Vol] 6 g/dL Low 6.4 - 8.2 g/dL [facility] Sodium [Moles/Vol] 136 mmol/L 136 - 145 mmol/L [facility] Urea nitrogen [Mass/Vol] 7 mg/dL 6 - 23 mg/dL [facility] Albumin BCP dye [Mass/Vol] 3.3 g/dL Low 3.4-5.0 [facility] Comment on above: Performed By: #### 5 8410-2 #### QUIN Simon ([id number]) [facility] [address] [place] [address] ALP [Catalytic activity/Vol] 65 U/L Normal 33-110 [facility] Comment on above: Performed By: #### 5 8410-2 #### QUIN Simon ([id number]) [facility] [address] [place] [address] ALT With P-5'-P [Catalytic activity/Vol] 6 U/L Low 7-45 [facility] Comment on above: Result Comment: Nguyen ents treated with Sulfasalazine may generate falsely decreased results for ALT. Performed By: #### 5 8410-2 #### QUIN HARTMAN L ([id number]) [facility] [address] [place] [address] Anion gap [Moles/Vol] 16 mmol/L Normal 10-20 [facility] Comment on above: Performed By: #### 5 8410-2 #### QUIN HARTMAN L ([id number]) [facility] [address] [place] [address] AST With P-5'-P [Catalytic activity/Vol] 9 U/L Normal 9-39 [facility] Comment on above: Performed By: #### 5 8410-2 #### QUIN Simon ([id number]) [facility] [address] [place] [address] Bilirubin [Mass/Vol] 0.5 mg/dL Normal 0.0-1.2 [facility] Comment on above: Performed By: #### 5 8410-2 #### QUIN HARTMAN L ([id number]) [facility] [address] [place] [address] Calcium [Mass/Vol] 8.8 mg/dL Normal 8.6-10.6 [facility] Comment on above: Performed By: #### 5 8410-2 #### QUIN HARTMAN L ([id number]) [facility] [address] [place] [address] Chloride [Moles/Vol] 106 mmol/L Normal 98-107 [facility] Comment on above: Performed By: #### 5 8410-2 #### QUIN Simon ([id number]) [facility] [address] [place] [address] CO2 [Moles/Vol] 18 mmol/L Low 21-32 [facility] Comment on above: Performed By: #### 5 8410-2 #### QUIN Simon ([id number]) [facility] [address] [place] [address] 75474 Creatinine [Mass/Vol] 0.50 mg/dL Normal 0.50-1.05 [facility] Comment on above: Performed By: #### 5 8410-2 #### QUIN Simon ([id number]) [facility] [address] [place] [address] 69227 GFR/1.73 sq M.predicted MDRD (S/P/Bld) [Vol rate/Area] mL/min/{1.73_m2} Normal >60 [facility] Comment on above: Result Comment: Calc ulations of estimated GFR are performed using the 2020 CKD-EPI Study Refit equation without the race variable for the IDMS-Traceable creatinine methods. https://jasn.asnjournals.org/content//ASN.873379 4098 Performed By: #### 5 8410-2 #### QUIN Simon ([id number]) [facility] [address] [place] [address] 38639 Glucose [Mass/Vol] 94 mg/dL Normal 74-99 [facility] Comment on above: Performed By: #### 5 8410-2 #### QUIN Simon ([id number]) [facility] [address] [place] [address] 33578 Potassium [Moles/Vol] 4.0 mmol/L Normal 3.5-5.3 [facility] Comment on above: Performed By: #### 5 8410-2 #### QUIN Simon ([id number]) [facility] [address] [place] [address] 46141 Protein [Mass/Vol] 6.0 g/dL Low 6.4-8.2 [facility] Comment on above: Performed By: #### 5 8410-2 #### QUIN Simon ([id number]) [facility] [address] [place] [address] 24853 Sodium [Moles/Vol] 136 mmol/L Normal 136-145 [facility] Comment on above: Performed By: #### 5 8410-2 #### QUIN Simon ([id number]) [facility] [address] [place] [address] 41765 Urea nitrogen [Mass/Vol] 7 mg/dL Normal 6-23 [facility] Comment on above: Performed By: #### 5 8410-2 #### QUIN Simon ([id number]) [facility] [address] [place] [address] 95887 Glucose Test strip manual (B ld) [Mass/Vol]on 01-08-2025 Glucose [Mass/Vol] 91 mg/dL 74 - 99 mg/dL [facility] Interpretation and review of laboratory results Normal [facility] Glucose [Mass/Vol] 91 mg/dL Normal 74-99 [facility] Comment on above: Performed By: #### 5 8410-2 #### QUIN Simon ([id number]) [facility] [address] [place] [address] 37352 Glucose [Mass/Vol] 172 mg/dL High 74-99 [facility] Comment on above: Performed By: #### 5 8410-2 #### QUIN Simon ([id number]) [facility] [address] [place] [address] 03353 Proteinon 01-08-2025 Protein Qn (U) 11 mg/dL Normal 5-24 [facility] Comment on above: Performed By: #### 5 8410-2 #### QUIN Simon ([id number]) [facility] [address] [place] [address] Protein Qn (U)on 01-08-2025 Creatinine (U) [Mass/Vol] 46.3 mg/dL 20.0 - 320.0 mg/dL [facility] Interpretation and review of laboratory results Abnormal [facility] Protein/Creatinine (U) [Mass ratio] 0.24 mg/g High [facility] Creatinine (U) [Mass/Vol] 46.3 mg/dL Normal 20.0-320.0 [facility] Comment on above: Performed By: #### 5 8410-2 #### QUIN Simon ([id number]) [facility] [address] [place] [address] 68758 Protein/Creatinine (U) [Mass ratio] 0.24 mg/mg Creat High 0.00-0.17 [facility] Comment on above: Performed By: #### 5 8410-2 #### QUIN Simon ([id number]) [facility] [address] [place] [address] 92082 Protein, Urine Randomon 03-0 Protein Qn (U) 11 mg/dL 5 - 24 mg/dL [facility] US OB LIMITED 1+ FETUSESon 0 - [...] Suboptimal view: limited by maternal body habitus [facility] Urinalysis macro (dipstick) panel (U)on 01-08-2025 Appearance (Body fld) [facility]: Bilirubin, UA Negative [facility] Work Phone: Blood, UA Negative [facility] Work Phone: Clarity, UA Clear [facility] Work Phone: Color, UA Yellow [facility] Work Phone: [phone] Glucose, UA Negative [facility] Work Phone: [phone] Ketones, UA Negative [facility] Work Phone: [phone] Leukocytes, UA TRACE [facility] Work Phone: [phone] Nitrite, UA Negative [facility] Work Phone: [phone] pH, UA 6 [facility] Work Phone: [phone] Protein, UA Negative [facility] Work Phone: [phone] Spec Grav, UA 1.015 [facility] Work Phone: Urobilinogen, UA 0.2 [facility] Work Phone: [facility] Work Phone: MR/BMS.BPon 01-06-2025 MR/BMS.BP Normal [facility] MR/BMS.BPon 01-02-2025 MR/BMS.BP Normal [facility] PROTEIN, TOTAL W/CREAT, RAND OM URINEon 01-02-2025 Creatinine (U) [Mass/Vol] 97 mg/dL Normal 20-275 [facility] Comment on above: Performed By: #### 1 805 #### [facility] [address] [address] Procurement Inspector: Salvador Swanson MD Protein (U) [Mass/Vol] 27 mg/dL High 5-24 [facility] Comment on above: Performed By: #### 1 805 #### [facility] [address], [address] [place] [address] Procurement Inspector: Salvador Swanson MD PROTEIN/CREATININE RATIO 278 mg/g creat High 24-184 [facility] Comment on above: Performed By: #### 1 715 #### [facility] [address], [address] [place] [address] Procurement Inspector: Salvador Swanson MD PROTEIN/CREATININE RATIO 0.278 mg/mg creat High 0.024-0.184 [facility] Comment on above: Performed By: #### 1 715 #### [facility] [address], [address] Procurement Inspector: Salvador Swanson MD Glucose Test strip manual (B ld) [Mass/Vol]on 01-01-2025 Glucose [Mass/Vol] 206 mg/dL High 74 - 99 mg/dL [facility] Interpretation and review of laboratory results Abnormal [facility] Glucose [Mass/Vol] 206 mg/dL High 74-99 [facility] Comment on above: Performed By: #### 5 8410-2 #### QUIN Simon ([id number]) [facility] [address] [place] [address] US OB FOLLOW UP TRANSABDOMIN AL APPROACHon 01-01-2025 OB FOLLOW UP TRANSABDOMINAL APPROACH Interpreted by: [...] Suboptimal view: limited by maternal body habitus [facility] US for pregnancyon Interpreted by: Carline [...] (BMI > 40) History ====== General History Tijdnh021 cm Height (ft)5 ft Height (in)4 in Previous Outcomes Jbbmira34 Para5 Children born living ?37w1 Pregnancies delivered at term (T)1 Pregnancies delivered (P)4 Abortions (A)9 Living children (L)5 Children born living <37w4 Miscarriages9 Other:Vaginal Delivery Maternal Assessment Cqzfqk224 cm Height (ft)5 ft Height (in)4 in Sgomjv736 kg Weight (lb)285 lb BMI48.92 kg/m ========= Schilling . Number of fetuses: 1 Dating ====== Cycle:LMP date not known [place] by prior [id number] w + 3 d [place] by prior [...] Suboptimal view: limited by maternal body habitus [facility] Work Phone: Radiology Study observation (narrative) [facility] Work Phone: US for pregnancyOrdered By: Carline Pollack on 01-01-2025 [facility] Work Phone: Glucose Test strip manual (B ld) [Mass/Vol]on 12-25-2024 Glucose [Mass/Vol] 166 mg/dL High 74 - 99 mg/dL [facility] Interpretation and review of laboratory results Abnormal [facility] Glucose [Mass/Vol] 166 mg/dL High 74-99 [facility] Comment on above: Performed By: #### 5 8410-2 #### QUIN Simon ([id number]) [facility] [address] [place] [address] 70924 Glucose [Mass/Vol] 148 mg/dL High 74 - 99 mg/dL [facility] Interpretation and review of laboratory results Abnormal [facility] Glucose [Mass/Vol] 148 mg/dL High 74-99 [facility] Comment on above: Performed By: #### 5 8410-2 #### QUIN Simon ([id number]) [facility] [address] [place] [address] 23254 Glucose [Mass/Vol] 159 mg/dL High 74 - 99 mg/dL [facility] Interpretation and review of laboratory results Abnormal [facility] Glucose [Mass/Vol] 159 mg/dL High 74-99 [facility] Comment on above: Performed By: #### 2 341-6 #### QUIN Simon ([id number]) [facility] [address] [place] [address] 39407 Blood type and Indirect anti body screen panel (Bld)on 12-24-2024 ABO group Nom (Bld) O [facility] Blood group antibody screen Ql Negative [facility] D Ag Ql (Bld) Positive [facility] Glucose Test strip manual (B ld) [Mass/Vol]on 12-24-2024 Glucose [Mass/Vol] 132 mg/dL High 74 - 99 mg/dL [facility] Interpretation and review of laboratory results Abnormal [facility] Glucose [Mass/Vol] 132 mg/dL High 74-99 [facility] Comment on above: Performed By: #### 2 341-6 #### QUIN Simon ([id number]) [facility] [address] [place] [address] 74323 Glucose [Mass/Vol] 160 mg/dL High 74 - 99 mg/dL [facility] Interpretation and review of laboratory results Abnormal [facility] Glucose [Mass/Vol] 160 mg/dL High 74-99 [facility] Comment on above: Performed By: #### 2 341-6 #### QUIN Simon ([id number]) [facility] [address] [place] [address] 96975 Glucose [Mass/Vol] 139 mg/dL High 74 - 99 mg/dL [facility] Interpretation and review of laboratory results Abnormal [facility] Glucose [Mass/Vol] 139 mg/dL High 74-99 [facility] Comment on above: Performed By: #### 2 341-6 #### QUIN Simon ([id number]) [facility] [address] [place] [address] 62174 Glucose [Mass/Vol] 153 mg/dL High 74 - 99 mg/dL [facility] Interpretation and review of laboratory results Abnormal [facility] Glucose [Mass/Vol] 153 mg/dL High 74-99 [facility] Comment on above: Performed By: #### 2 341-6 #### QUIN Simon ([id number]) [facility] [address] [place] [address] 51613 Glucose [Mass/Vol] 164 mg/dL High 74 - 99 mg/dL [facility] Interpretation and review of laboratory results Abnormal [facility] Glucose [Mass/Vol] 164 mg/dL High 74-99 [facility] Comment on above: Performed By: #### 2 341-6 #### QUIN Simon ([id number]) [facility] [address] [place] [address] 89812 US OB DETAIL ANATOMYon 12-24-2024 US OB [...] EFW (oz) 15 oz EFW by: Hadlock (HMT-KB-EM-FL) Extended Oil Agent 6.7 mm Head / Face / Neck [...] Normal LVOT view: Normal 3-vessel view: Normal 4-omxbug-qqicmll view: Normal Heart / Thorax Cardiac axis: [...] Transabdominal ultrasound examination. View: Poor view Normal [facility] US for pregnancyon Interpreted by: Earl Jin [...] EFW (oz) 15 oz EFW by: Hadlock (MVX-QG-XZ-FL) Extended Oil Agent 6.7 mm Head / Face / Neck [...] Normal LVOT view: Normal 3-vessel view: Normal 8-nmsdak-robpkfk view: Normal Heart / Thorax Cardiac axis: [...] (BMI > 40) History ====== General History Gquvix344 cm Height (ft)5 ft Height (in)4 in Previous Outcomes Zjyzqsb44 Para5 Children born living ?37w1 Pregnancies delivered at term (T)1 Pregnancies delivered (P)4 Abortions (A)9 Living children (L)5 Children born living <37w4 Miscarriages9 Other:Vaginal Delivery Maternal Assessment Lrvyzg562 cm Height (ft)5 ft Height (in)4 in Vwwhnu677 kg Weight (lb)285 lb BMI48.92 kg/m ========= Schilling . Number of fetuses: 1 Dating ====== Cycle:LMP date not known [place] by prior awwvglosgl29 w + 2 d [place] by prior [...] 74% Hadlock Femur46.3 mm25w 3d 39% Hadlock Ucfwqjl27.1 mm 45% [facility] / AC1.13 BHI643 g25w 6d 74% Hadlock EFW (lb)1 lb EFW (oz)15 oz EFW by:Hadlock (GRU-KU-IV-FL) Extended Vp6.7 mm Head / Face / Neck Cephalic index0.78 48% Nicolaides Extremities / Bony Struc FL / BPD0.69 FL / HC0.19 FL / AC0.21 Other Structures ULO211 bpm Anatomy Cranium:Normal Lateral ventricles:Normal Choroid plexus:Normal Midline falx:Normal Cavum septi pellucidi:Normal Cerebellum:Normal Cisterna magna:Normal Head / Neck Thalami:Normal Lips:Normal Profile:Normal Nose:Normal 4-chamber view:Normal RVOT view:Normal LVOT view:Normal 3-vessel view:Normal 0-nwiqvh-ftayjkr view:Normal Heart / Thorax Cardiac axis:Normal Diaphragm:Normal [...] ====== Transabdominal ultrasound examination. View: Poor view [facility] Work Phone: Radiology Study observation (narrative) [facility] Work Phone: US for pregnancyOrdered By: Earl [place] on 12-24-2024 [facility] Work Phone: Beta hydroxybutyrate [Mass o r moles/Vol]on 12-23-2024 Beta hydroxybutyrate [Moles/Vol] 0.11 mmol/L 0.02 - 0.27 mmol/L [facility] The beta-hydroxybuty rate test performance characteristics have been validated by [facility]. This test has not been approved by the FDA; however such approval is not necessary. [facility] Beta hydroxybutyrate [Moles/Vol] 0.11 mmol/L Normal 0.02-0.27 [facility] Comment on above: Order Comment: The b eta-hydroxybutyrate test performance characteristics have been validated by [facility]. This test has not been approved by the FDA; however such approval is not necessary. Performed By: #### 3 5255-9 #### QUIN Simon ([id number]) [facility] [address] [place] [address] Blood type and Indirect anti body screen panel (Bld)on 02-18-2025 ABO group Nom (Bld) O Normal [facility] Comment on above: Performed By: #### 2 341-6 #### QUIN Simon ([id number]) [facility] [address] [place] [address] Blood group antibody screen Ql Negative [facility] Comment on above: Performed By: #### 2 341-6 #### QUIN Simon ([id number]) [facility] [address] [place] [address] D Ag Ql (Bld) Positive [facility] Comment on above: Performed By: #### 2 341-6 #### QUIN Simon ([id number]) [facility] [address] [place] [address] CBC panel Auto (Bld)on 12-23 Erythrocyte distribution width (RBC) [Ratio] 13.3 % 11.5 - 14.5 % [facility] Hematocrit (Bld) [Volume fraction] 35.7 % Low 36.0 - 46.0 % [facility] Hemoglobin (Bld) [Mass/Vol] 12.1 g/dL 12.0 - 16.0 g/dL [facility] MCH (RBC) [Entitic mass] 29.7 pg 26.0 - 34.0 pg [facility] MCHC (RBC) [Mass/Vol] 33.9 g/dL 32.0 - 36.0 g/dL [facility] MCV (RBC) [Entitic vol] 88 fL 80 - 100 fL [facility] Nucleated RBC/100 WBC (Bld) [Ratio] 0 % [facility] Platelets (Bld) [#/Vol] 207 10*3/uL [facility] RBC (Bld) [#/Vol] 4.08 10*6/uL [facility] WBC (Bld) [#/Vol] 14.6 10*3/uL High [facility] Erythrocyte distribution width (RBC) [Ratio] 13.3 % Normal 11.5-14.5 [facility] Comment on above: Performed By: #### 5 8410-2 #### QUIN Simon ([id number]) [facility] [address] [place] [address] 69184 Hematocrit (Bld) [Volume fraction] 35.7 % Low 36.0-46.0 [facility] Comment on above: Performed By: #### 5 8410-2 #### QUIN Simon ([id number]) [facility] [address] [place] [address] 82968 Hemoglobin (Bld) [Mass/Vol] 12.1 g/dL Normal 12.0-16.0 [facility] Comment on above: Performed By: #### 5 8410-2 #### QUIN Simon ([id number]) [facility] [address] [place] [address] 16140 MCH (RBC) [Entitic mass] 29.7 pg Normal 26.0-34.0 [facility] Comment on above: Performed By: #### 5 8410-2 #### QUIN Simon ([id number]) [facility] [address] [place] [address] 30860 MCHC (RBC) [Mass/Vol] 33.9 g/dL Normal 32.0-36.0 [facility] Comment on above: Performed By: #### 5 8410-2 #### QUNI Simon ([id number]) [facility]) [address] [place] [address] 75646 MCV (RBC) [Entitic vol] 88 fL Normal 80-100 [facility] Comment on above: Performed By: #### 5 8410-2 #### QUIN Simon ([id number]) [facility] [address] [place] [address] 00334 Nucleated RBC/100 WBC (Bld) [Ratio] 0.0 /100 WBCs Normal 0.0-0.0 [facility] Comment on above: Performed By: #### 5 8410-2 #### QUIN Simon ([id number]) [facility] [address] [place] [address] Platelets (Bld) [#/Vol] 207 x10*3/uL Normal 150-450 [facility] Comment on above: Performed By: #### 5 8410-2 #### QUIN Simon ([id number]) [facility] [address] [place] [address] RBC (Bld) [#/Vol] 4.08 x10*6/uL Normal 4.00-5.20 [facility] Comment on above: Performed By: #### 5 8410-2 #### QUIN Simon ([id number]) [facility] [address] [place] [address] 41804 WBC (Bld) [#/Vol] 14.6 x10*3/uL High 4.4-11.3 [facility] Comment on above: Performed By: #### 5 8410-2 #### QUIN Simon ([id number]) [facility] [address] [place] [address] 87226 Comprehensive metabolic 2000 panelon 12-23-2024 Albumin BCP dye [Mass/Vol] 3.5 g/dL 3.4 - 5.0 g/dL [facility] ALP [Catalytic activity/Vol] 75 U/L 33 - 110 U/L [facility] ALT With P-5'-P [Catalytic activity/Vol] 5 U/L Low 7 - 45 U/L [facility] Comment on above: Patients treated wit h Sulfasalazine may generate falsely decreased results for ALT. Anion gap [Moles/Vol] 17 mmol/L 10 - 2 0 mmol/L [facility] AST With P-5'-P [Catalytic activity/Vol] 9 U/L 9 - 39 U/L [facility] Bilirubin [Mass/Vol] 0.4 mg/dL 0.0 - 1 .2 mg/dL [facility] Calcium [Mass/Vol] 9.1 mg/dL 8.6 - 10. 6 mg/dL [facility] Chloride [Moles/Vol] 103 mmol/L 98 - 10 7 mmol/L [facility] CO2 [Moles/Vol] 17 mmol/L Low 21 - 32 mmol/L [facility] Creatinine [Mass/Vol] 0.45 mg/dL Low 0.50 - 1.05 mg/dL [facility] eGFR - PINF [facility] Comment on above: Calculations of zoya mated GFR are performed using the 2020 CKD-EPI Study Refit equation without the race variable for the IDMS-Traceable creatinine methods. https://jasn.asnjournals.org/content/early//ASN.865215 7227 Glucose [Mass/Vol] 234 mg/dL High 74 - 99 mg/dL [facility] Interpretation and review of laboratory results Abnormal [facility] Potassium [Moles/Vol] 3.8 mmol/L 3.5 - 5.3 mmol/L [facility] Protein [Mass/Vol] 6.5 g/dL 6.4 - 8.2 g/dL [facility] Sodium [Moles/Vol] 133 mmol/L Low 136 - 145 mmol/L [facility] Urea nitrogen [Mass/Vol] 5 mg/dL Low 6 - 23 mg/dL [facility] Albumin BCP dye [Mass/Vol] 3.5 g/dL Normal 3.4-5.0 [facility] Comment on above: Performed By: #### 2 4323-8 #### QUIN Simon ([id number]) [facility] [address] [place] [address] 22518 ALP [Catalytic activity/Vol] 75 U/L Normal 33-110 [facility] Comment on above: Performed By: #### 2 4323-8 #### QUIN Simon ([id number]) [facility] [address] [place] [address] ALT With P-5'-P [Catalytic activity/Vol] 5 U/L Low 7-45 [facility] Comment on above: Result Comment: Nguyen ents treated with Sulfasalazine may generate falsely decreased results for ALT. Performed By: #### 2 4323-8 #### QUIN Simon ([id number]) [facility] [address] [place] [address] Anion gap [Moles/Vol] 17 mmol/L Normal 10-20 [facility] Comment on above: Performed By: #### 2 4323-8 #### QUIN Simon ([id number]) [facility] [address] [place] [address] AST With P-5'-P [Catalytic activity/Vol] 9 U/L Normal 9-39 [facility] Comment on above: Performed By: #### 2 4323-8 #### QUIN Simon ([id number]) [facility] [address] [place] [address] 13584 Bilirubin [Mass/Vol] 0.4 mg/dL Normal 0.0-1.2 [facility] Comment on above: Performed By: #### 2 4323-8 #### QUIN Simon ([id number]) [facility] [address] [place] [address] 80925 Calcium [Mass/Vol] 9.1 mg/dL Normal 8.6-10.6 [facility] Comment on above: Performed By: #### 2 4323-8 #### QUIN Simon ([id number]) [facility] [address] [place] [address] 33714 Chloride [Moles/Vol] 103 mmol/L Normal 98-107 [facility] Comment on above: Performed By: #### 2 4323-8 #### QUIN Simon ([id number]) [facility] [address] [place] [address] 31161 CO2 [Moles/Vol] 17 mmol/L Low 21-32 [facility] Comment on above: Performed By: #### 2 4323-8 #### QUIN Simon ([id number]) [facility] [address] [place] [address] 36828 Creatinine [Mass/Vol] 0.45 mg/dL Low 0.50-1.05 [facility] Comment on above: Performed By: #### 2 4323-8 #### QUIN Simon ([id number]) [facility] [address] [place] [address] 37837 GFR/1.73 sq M.predicted MDRD (S/P/Bld) [Vol rate/Area] mL/min/{1.73_m2} Normal >60 [facility] Comment on above: Result Comment: Calc ulations of estimated GFR are performed using the 2020 CKD-EPI Study Refit equation without the race variable for the IDMS-Traceable creatinine methods. https://jasn.asnjournals.org/content//ASN.015125 1626 Performed By: #### 2 4323-8 #### QUIN Simon ([id number]) [facility] [address] [place] [address] 00191 Glucose [Mass/Vol] 234 mg/dL High 74-99 [facility] Comment on above: Performed By: #### 2 4323-8 #### QUIN Simon ([id number]) [facility] [address] [place] [address] 30048 Potassium [Moles/Vol] 3.8 mmol/L Normal 3.5-5.3 [facility] Comment on above: Performed By: #### 2 4323-8 #### QUIN Simon ([id number]) [facility] [address] [place] [address] 55554 Protein [Mass/Vol] 6.5 g/dL Normal 6.4-8.2 [facility] Comment on above: Performed By: #### 2 4323-8 #### QUIN Simon ([id number]) [facility] [address] [place] [address] 42021 Sodium [Moles/Vol] 133 mmol/L Low 136-145 [facility] Comment on above: Performed By: #### 2 4323-8 #### QUIN Simon ([id number]) [facility] [address] [place] [address] 87356 Urea nitrogen [Mass/Vol] 5 mg/dL Low 6-23 [facility] Comment on above: Performed By: #### 2 4323-8 #### QUIN Simon ([id number]) [facility] [address] [place] [address] 46362 Glucose Test strip manual (B ld) [Mass/Vol]on 12-23-2024 Glucose [Mass/Vol] 170 mg/dL High 74 - 99 mg/dL [facility] Interpretation and review of laboratory results Abnormal [facility] Glucose [Mass/Vol] 170 mg/dL High 74-99 [facility] Comment on above: Performed By: #### 2 341-6 #### QUIN Simon ([id number]) [facility] [address] [place] [address] 17968 Glucose [Mass/Vol] 146 mg/dL High 74 - 99 mg/dL [facility] Interpretation and review of laboratory results Abnormal [facility] Glucose [Mass/Vol] 146 mg/dL High 74-99 [facility] Comment on above: Performed By: #### 2 341-6 #### QUIN Simon ([id number]) [facility] [address] [place] [address] 95070 Glucose [Mass/Vol] 301 mg/dL High 74 - 99 mg/dL [facility] Interpretation and review of laboratory results Abnormal [facility] Glucose [Mass/Vol] 301 mg/dL High 74-99 [facility] Comment on above: Performed By: #### 2 341-6 #### QUIN Simon ([id number]) [facility] [address] [place] [address] 67617 Glucose [Mass/Vol] 303 mg/dL High 74 - 99 mg/dL [facility] Interpretation and review of laboratory results Abnormal [facility] Glucose [Mass/Vol] 303 mg/dL High 74-99 [facility] Comment on above: Performed By: #### 2 341-6 #### QUIN Simon ([id number]) [facility] [address] [place], [place] [address] HbA1c (Bld) [Mass fraction]o n 12-23-2024 Average glucose Estimated from glycated hemoglobin (Bld) [Mass/Vol] 140 mg/dL Not Established [facility] Diagnosis of Diabetes-Adults Non-Diabetic: < or = 5.6% Increased risk for developing diabetes: 5.7-6.4% Diagnostic of diabetes: > or = 6.5% [facility] Average glucose Estimated from glycated hemoglobin (Bld) [Mass/Vol] 140 mg/dL Normal Not Established [facility] Comment on above: Order Comment: Diagn osis of Diabetes-Adults Non-Diabetic: < or = 5.6% Increased risk for developing diabetes: 5.7-6.4% Diagnostic of diabetes: > or = 6.5% Performed By: #### 4 548-4 #### QUIN Simon ([id number]) [facility] [address] [place] [address] 28773 Hemoglobin A1con 12-23-2024 HbA1c (Bld) [Mass fraction] 6.5 % High See comment [facility] Hemoglobin A1c/Hemoglobin.to perico 12-23-2024 HbA1c (Bld) [Mass fraction] 6.5 % High See comment [facility] Comment on above: Order Comment: Diagn osis of Diabetes-Adults Non-Diabetic: < or = 5.6% Increased risk for developing diabetes: 5.7-6.4% Diagnostic of diabetes: > or = 6.5% Performed By: #### 4 548-4 #### QUIN Simon ([id number]) [facility] [address] [place] [address] 20876 Lactate Dehydrogenaseon 12-06 LDH Lactate to pyruvate reaction [Catalytic activity/Vol] 152 U/L 84 - 246 U/L [facility] Lactate dehydrogenaseon 02-1 8-2025 LDH Lactate to pyruvate reaction [Catalytic activity/Vol] 152 U/L Normal 84-246 [facility] Comment on above: Performed By: #### 1 4804-9 #### QUIN Simon ([id number]) [facility] [address] [place] [address] No Panel Informationon 12-23 Interpretation and review of laboratory results Normal [facility] Interpretation and review of laboratory results Abnormal [facility] POCT UA (nonautomated) alphonse castelan resultedon 12-23-2024 Appearance (U) Clear Clear [facility] Work Phone: [phone] Glucose Test strip (U) [Mass/Vol] 500 (3+) Abnormal NEGATIVE mg/dl [facility] Work Phone: [phone] Hemoglobin Ql (U) Negative NEGATIVE [facility] Work Phone: [phone] Interpretation and review of laboratory results Abnormal [facility] Work Phone: Leukocyte esterase Test strip Ql (U) Negative NEGATIVE [facility] Work Phone: [phone] Nitrite Ql (U) Negative NEGATIVE [facility] Work Phone: )[phone] pH (U) 5.5 [pH] No Reference Range Established [facility] Work Phone: [phone] POC Bilirubin, Urine Negative NEGATIVE [facility]: [phone] POC Color, Urine Yellow Straw, Yellow, Light-Yellow [facility] Work Phone: )[phone] POC Ketones, Urine Negative NEGATIVE mg/dl [facility] Work Phone: [phone] POC Protein, Urine 15 (1+) Abnormal NEGATIVE mg/dl [facility] Work Phone: [phone] POC Specific [place], Urine 1.025 1.005 - 1.035 [facility] Work Phone: [phone] Comment on above: 1.030, but not an op tion POC Urobilinogen, Urine 0.2 0.2, 1.0 EU/DL [facility] Work Phone: [facility] Work Phone: Proteinon 12-23-2024 Protein Qn (U) 8 mg/dL Normal 5-24 [facility] Comment on above: Performed By: #### 2 7298-9 #### QUIN Simon ([id number]) [facility] [address] [place] [address] 37586 Protein Qn (U)on 12-23-2024 Creatinine (U) [Mass/Vol] 30.1 mg/dL 20.0 - 320.0 mg/dL [facility] Interpretation and review of laboratory results Abnormal [facility] Protein/Creatinine (U) [Mass ratio] 0.27 mg/g High [facility] Creatinine (U) [Mass/Vol] 30.1 mg/dL Normal 20.0-320.0 [facility] Comment on above: Performed By: #### 2 7298-9 #### QUIN Simon ([id number]) [facility] [address] [place] [address] 09829 Protein/Creatinine (U) [Mass ratio] 0.27 mg/mg Creat High 0.00-0.17 [facility] Comment on above: Performed By: #### 2 7298-9 #### QUIN Simon ([id number]) [facility] [address] [place] [address] 02261 Protein, Urine Randomon 12-06 Protein Qn (U) 8 mg/dL 5 - 24 mg/dL [facility] Syphilis Screen with ReflexO rdered By: Naya Khan on 12-23-2024 T. pallidum IgG+IgM IA Ql (S) Non-Reactive Nonreactive [facility] Comment on above: No significant level of Treponema pallidum antibody detected. Repeat testing in 2 to 4 weeks may be considered if early infection or incubating syphilis infection is suspected. T. pallidum IgG+IgM IA Ql (S )Ordered By: Naya Khan on 12-23-2024 Interpretation and review of laboratory results Normal [facility] Treponema pallidum Ab.IgG+Ig Mon 12-23-2024 T. pallidum IgG+IgM IA Ql (S) Non-Reactive Normal Nonreactive [facility] Comment on above: Order Comment: This test is for Syphilis screening, for Syphilis monitoring order RPR with Titer, Syphilis Monitoring Result Comment: No s ignificant level of Treponema pallidum antibody detected. Repeat testing in 2 to 4 weeks may be considered if early infection or incubating syphilis infection is suspected. Performed By: #### 2 341-6 #### QUIN Simon ([id number]) [facility] [address] [place] [address] Urateon 12-23-2024 Urate [Mass/Vol] 2.3 mg/dL Normal 2.3-6.7 [facility] Comment on above: Result Comment: Jessica puncture immediately after or during the administration of Metamizole may lead to falsely low results. Testing should be performed immediately prior to Metamizole dosing. Performed By: #### 3 084-1 #### QUIN Simon ([id number]) [facility] [address] [place] [address] 08124 Urate [Mass/Vol]on Interpretation and review of laboratory results Normal [facility] Uric Acidon 12-23-2024 Urate [Mass/Vol] 2.3 mg/dL 2.3 - 6.7 mg/dL [facility] Comment on above: Venipuncture immedia tely after or during the administration of Metamizole may lead to falsely low results. Testing should be performed immediately prior to Metamizole dosing. Urinalysis macro (dipstick) panel (U)on 12-23-2024 Appearance (Body fld) Clear Uni [facility] Work Phone: Bilirubin, UA Negative [facility] Work Phone: Blood, UA Negative [facility] Work Phone: Clarity, UA Clear [facility] Work Phone: Color, UA Light-Yellow [facility] Work Phone: Glucose, UA 3+ [facility] Work Phone: Interpretation and review of laboratory results Abnormal [facility] Work Phone: Ketones, UA Negative [facility] Work Phone: Leukocytes, UA Negative [facility] Work Phone: Nitrite, UA Negative [facility] Work Phone: pH, UA 5.5 [facility] Work Phone: Protein, UA Negative [facility] Work Phone: Spec Grav, UA 1.015 [facility] Work Phone: Urobilinogen, UA 0.2 [facility] Work Phone: [facility] Work Phone: Urine Cultureon 12-19-2024 URC Mixed Gram Positive Organisms Cascade Count 1000-10,000 MIXC Mixed contaminants. Submit a new specimen if indicated. Normal [facility] Comment on above: Performed By: #### M 100.2200 ####[facility] [address] [place], [address] [employer] Office Visit Reporton 12-17-2024 [facility] Office Visit Report Normal [facility] MR/BMS.BPon 12-08-2024 MR/BMS.BP Normal [facility] MR/BMS.BPon 12-03-2024 MR/BMS.BP Normal [facility] Office Visiton 11-25-2024 Follow-up visit [id number] Ari Tinsley 1991 F Date Provider Department Center 11/25/2024 [id number] PRIDE [facility] WO None Chart Close Cosign Required by: Izabel [...] Alive Paternal Grandmother Alive Level of Service:0500F [place] INITIAL CARE VISIT (,) Reason for Visit and Comments: New Patient [542] - C/o baby being low and it hurts to walk Normal [facility] Progress Noteon 11-25-2024 Progress Note Pt states she feels baby moving Normal [facility] Progress Note ----- ----- Attestation signed by Izabel Whipple MD at 12/10/2024 9:56 AM [facility]: This patient was seen in the [facility] by the resident. I reviewed and [...] Use: No Drug Use: No Occupation: [employer] Review of Systems: Pertinent items are noted [...] to delivery with HROB/cMFM and care with [facility]. Patient very hesitent to discuss OB History [...] is donor, Patient reported getting sperm on ID/[facility] clinic, obtained two vials, Home insemination, but potential that this could be ex husbands baby Female infants born ([facility], patient declined signing ROR to this hospital [...] then wanting to discuss birthing options at [facility] Facility: labor: -My fix all for labor is 50mg IV benadryl and IV phenergan, because a thow up fit will cause me to go into labor, discussed that althoug (more content not included)... Normal [facility] MR/BMS.BPon 11-21-2024 MR/BMS.BP Normal [facility] [employer] Office Visit Reporton 11-18-2024 Dis[employer]ersion [employer] Office Visit Report Normal [facility] Basic Metabolic Profile (BMP )on 01-09-2025 BUN/CRE 10.9 RATIO Normal 10-20 [facility] Comment on above: Performed By: #### L 501.5200, L500.2500 ####[facility] [address] [place], [address] CA,Total 9.1 mg/dL Normal 8.5-10.1 [facility] Comment on above: Performed By: #### L 501.5200, L500.2500 ####[facility] [address] [place], [address] Chloride [Moles/Vol] 109 mmol/L High 98-107 [facility] Comment on above: Performed By: #### L 501.5200, L500.2500 ####[facility] [address] [place], [address] CO2 [Moles/Vol] 24.0 mmol/L Normal 21.0-32.0 [facility] Comment on above: Performed By: #### L 501.5200, L500.2500 ####[facility] [address] [place], [address] Creatinine [Mass/Vol] 0.55 mg/dL Normal 0.55-1.02 [facility] Comment on above: Result Comment: The validity of the calculated GFR GFRAA in patients over70 years has not been determined. Clinical correlation isessential. Performed By: #### L 501.5200, L500.2500 ####[facility] [address] [place], [address] ECRCL 182.69 ml/min Normal [facility] Comment on above: Performed By: #### L 501.5200, L500.2500 ####[facility] [address] [place], [address] EST GFR - AA 162 mL/min Normal >60 [facility] Comment on above: Result Comment: Afri can [place] GFR Calc Performed By: #### L 501.5200, L500.2500 ####[facility] [address] [place], [address] GAP 4 Low 5-15 [facility] Comment on above: Performed By: #### L 501.5200, L500.2500 ####[facility] [address] [place], [address] GFR/1.73 sq M.predicted among non-blacks MDRD (S/P/Bld) [Vol rate/Area] 134 mL/min/{1.73_m2} Normal >60 [facility] Comment on above: Result Comment: Non- GFR Calc Performed By: #### L 501.5200, L500.2500 ####[facility] [address] [place], [address] Glucose [Mass/Vol] 110 mg/dL High 74-106 [facility] Comment on above: Result Comment: Fast ing Glucose result from 100 to 125 mg/dLsuggests IMPAIRED HOMEOSTASIS per A.D.A. criteria. Performed By: #### L 501.5200, L500.2500 ####[facility] [address] [place], [address] Potassium [Moles/Vol] 3.7 mmol/L Normal 3.5-5.1 [facility] Comment on above: Performed By: #### L 501.5200, L500.2500 ####[facility] [address] [place], [address] Sodium [Moles/Vol] 137 mmol/L Normal 136-145 [facility] Comment on above: Performed By: #### L 501.5200, L500.2500 ####[facility] [address] [place], [address] Urea nitrogen [Mass/Vol] 6 mg/dL Low 7-18 [facility] Comment on above: Performed By: #### L 501.5200, L500.2500 ####[facility] [address] [place], [address] Emergency Department Summary on 11-13-2024 Emergency Department Summary Normal [facility] M100.678on 11-13-2024 M100.678 Pending SARS-CoV-2 (COVID 19) Negative INFLUENZA A Negative INFLUENZA B Negative RSV PCR Negative Normal [facility] Comment on above: Performed By: #### M 100.678, L400.0001 ####[facility] [address] [place], [address] Magnesiumon 11-13-2024 Magnesium [Mass/Vol] 1.8 mg/dL Normal 1.6-2.6 [facility] Comment on above: Performed By: #### L 501.5200, L500.2500 ####[facility] [address] [place], [address] Urinalysis, Completeon 11-13 EPI,SQUAMOUS 0-5 SEEN Normal 5-10 [facility] Comment on above: Order Comment: COLLE CTOR TO SPECIFY Performed By: #### M 100.678, L400.0001 ####[facility] [address] [place], [address] BACTERIA 0 SEEN Normal None Seen [facility] Comment on above: Order Comment: COLLE CTOR TO SPECIFY Performed By: #### M 100.678, L400.0001 ####[facility] [address] [place], [address] Mucus Ql (Urine sed) 0 SEEN Normal [facility] Comment on above: Order Comment: COLLE CTOR TO SPECIFY Performed By: #### M 100.678, L400.0001 ####[facility] [address] [place], [address] RBC 0 SEEN Normal 0-5 [facility] Comment on above: Order Comment: COLLE CTOR TO SPECIFY Performed By: #### M 100.678, L400.0001 ####[facility] [address] [place], [place], [id number] WBC 0 SEEN Normal 0-5 [facility] Comment on above: Order Comment: COLLE CTOR TO SPECIFY Performed By: #### M 100.678, L400.0001 ####[facility] [address] [place], [place], [id number] MR/BMS.BPon 10-24-2024 MR/BMS.BP Normal [facility] Dispersion Mixer Office Visit Reporton 10-24-2024 Dispersion Mixer Office Visit Report Normal [facility] Urgent Care Visit Reporton 1 12-16-2023 Urgent Care Visit Report Normal [facility] Brain/Head without Contrasto n 10-14-2024 Brain/Head without Contrast Normal [facility] Urgent Care Visit Reporton 1 12-14-2023 Urgent Care Visit Report Normal [facility] Hepatitis B Core Ab Totalon 10-11-2024 HEP B CORE,TOT Negative Normal Negative [facility] Comment on above: Result Comment: Perf ormed at: CB - [facility] [place] [id number] Director: Waylon Wang PhD, Phone: [phone] Performed By: #### L 509.8000, Y9145.5774, L3100.0460, L3000.6108 ####[facility] [address] [place], [address] Hepatitis B Surface Antigeno n 10-10-2024 HEP B Surf Ag Non-Reactive Normal Nonreactive [facility] Comment on above: Performed By: #### L 509.8000, L3890.6300, L3100.0460, L3890.6100 ####[facility] [address] [place], [place], [id number] Hepatitis C Antibodyon 10-10 Hepatitis C AB Non-Reactive Normal Nonreactive [facility] Comment on above: Result Comment: Non Reactive: < 0.8 Equivocal: >/= 0.8 to < 1.0 Reactive: >/= 1.0The CDC requires that a reactive/equivocal HCV antibodyresult be sent out for confirmation. HCV Quant by PCRtesting. Performed By: #### L 509.8000, L3890.6300, L3100.0460, L3890.6100 ####[facility] [address] [place], [address] L509.8000on 10-10-2024 Syphilis Abs Non-Reactive Normal [facility] Comment on above: Performed By: #### L 509.8000, L3890.6300, L3100.0460, L3890.6100 ####[facility] [address] [place], [address] Dispersion Mixer Office Visit Reporton 10-10-2024 Dispersion Mixer Office Visit Report Normal [facility] Emergency Department Summary on 10-09-2024 Emergency Department Summary Normal [facility] Office Visit Reporton 2023 Office Visit Report Normal [facility] Anticardiolipin IgG, IgMon 1 11-30-2023 ANTICARDIO IgG < 9 Normal 0-14 [facility] Comment on above: Result Comment: Nega tive: <15 Indeterminate: 15 - 20 Low-Med Positive: >20 - 80 High Positive: >80 Performed By: #### L 4500.1999, L3100.8410, L3410.2000, L4500.5000, L4500.0100 ####[facility] [address] [place], [address] Anticardio.IgM < 9 Normal 0-12 [facility] Comment on above: Result Comment: Nega tive: <13 Indeterminate: 13 - 20 Low-Med Positive: >20 - 80 High Positive: >80 Performed By: #### L 4500.2000, L3100.8410, L3410.2000, L4500.5000, L4500.0100 ####[facility] [address] [place], [address] Beta-2 Glycoprot IgG, A, 09-30-2024 B2 GLYCO I IGA <9 Normal 0-25 [facility] Comment on above: Result Comment: Resu lt Units: GPI IgA unitsThe reference interval reflects a 3SD or 99th percentileinterval, which is thought to represent a potentiallyclinically significant result in accordance with theInternational Consensus Statement on the classificationcriteria for definitive antiphospholipid syndrome (APS). JThromb Haem 2006;4:295-306. Performed By: #### L 4500.2000, L3100.8410, L3410.2000, L4500.5000, L4500.0100 ####[facility] [address] [place] [id number] B2 GLYCO I IGG <9 Normal 0-20 [facility] Comment on above: Result Comment: Resu lt Units: GPI IgG unitsThe reference interval reflects a 3SD or 99th percentileinterval, which is thought to represent a potentiallyclinically significant result in accordance with theInternational Consensus Statement on the classificationcriteria for definitive antiphospholipid syndrome (APS). JThromb Haem 2006;4:295-306. Performed By: #### L 4500.2000, L3100.8410, L3410.2000, L4500.5000, L4500.0100 ####[facility] [address] [place] [address] B2 GLYCO I IGM <9 Normal 0-32 [facility] Comment on above: Result Comment: Resu lt Units: GPI IgM unitsThe reference interval reflects a 3SD or 99th percentileinterval, which is thought to represent a potentiallyclinically significant result in accordance with theInternational Consensus Statement on the classificationcriteria for definitive antiphospholipid syndrome (APS). JThromb Haem 2006;4:295-306. Performed By: #### L 4500.2000, L3100.8410, L3410.2000, L4500.5000, L4500.0100 ####[facility] [address] [facility] [address] Fact V Leiden Mutationon FACTOR V LEIDEN Comment Normal . [facility] Comment on above: Result Comment: Resu lt: c.1601G>A (p.Sfb580Pua) - Not DetectedThis result is not associated with an increased risk for venousthromboembolism. See Additional Clinical Information andComments.Additional Clinical Information:Venous thromboembolism is a multifactorial diseaseinfluenced by genetic, environmental, and circumstantialrisk factors. The c.1601G>A (p. Hsz383Uqw) variant in theF5 gene, commonly referred to [...] F2 c.*97G>Avariant and Factor V Leiden (PMID: 30202847). Additionalrisk factors include but are not limited [...] for health careproviders to discuss results at [phone] ([phone]).Test Details:Variant Analyzed: c.1601G>A (p. Vqp560Mbn), referred toas Factor V LeidenMethods/Limitations:DNA analysis of [...] was developed and its performance characteristicsdetermined by [facility]. It has not been cleared orapproved by the Food and Drug Administration.References:Carlos Flanagan, Rosalia GUZMAN, Delonte R, Virgie WW, Nba JH; ACMGProfessional Practice and Guidelines Committee. Addendum:[place] [employer] consensus statement onfactor V Leiden mutation testing. [employer]. 2020Jan 07.doi: 10.1038/[id number]-q. PMID: 26006521.Leah CHAVEZ. Factor V Leiden Thrombophilia. 1998March 18(Updated 2017Nov 08). In: Jarrod MP, Yancy HH, Celso RA,et al., editors. BlockSpring(R) (Internet). [place] ([place]):[facility]; 1324-1272. Availablefrom: https://www.ncbi.nlm.nih.gov/books/QAN1815/Rodney S, Rosalia GUZMAN, Sumit X, Tam B, Dirk EB, Blank P,Marc CS; ACMG Laboratory Agricultural Mechanic Committee.Venous thromboembolism laboratory testing (factor V Leidenand factor II c.*97G>A), 2018 update: a technical standardof the [place] [employer] and Genomics(ACMG). [employer]. 2018 Oct;20(12):7891-2325. doi:10.1038/[id number]-y. Epub 2017Aug 09. PMID: 72487072. Performed By: #### L 4500.2000, L3100.8410, L3410.2000, L4500.5000, L4500.0100 ####[facility] [address] [place], [place], [address] Reviewed By Comment Normal . [facility] Comment on above: Result Comment: Tech nical Component performed at [facility] RTPProfessional Component performed by:[employer] [facility]. Quin Aguila, Ph.D., FACMGDirector, Molecular Fmgdatbi60108 [facility] Performed By: #### L 4500.2000, L3100.8410, L3410.2000, L4500.5000, L4500.0100 ####[facility] [address] [place], [address] Factor II, DNA Analysison FACTOR II, DNA Comment Normal . [facility] Comment on above: Result Comment: Resu [...] in theF2 gene and a c.1601G>A (p. Ffo380Jvc) variant in the F5 gene(commonly referred to as Factor V Leiden) have an approximately 20-fold increased risk for venous thromboembolism. Risks are likely laz even higher in more complex genotype combinations involving theF2 c.*97G>A variant and Factor V Leiden (PMID: 01443797). Additionalrisk factors include but are not limited [...] for health care providers to discussresults at [phone] ([place]).Test Details:Variant analyzed: c.*97G>A, previously referred to as [id number]/Limitations:DNA analysis of the F2 gene (NM_000506.5) was [...] was developed and its performance characteristics determinedby [employer]. It has not been cleared or approved by the Food and DrugAdministration.References:Carlos Flanagan, Rosalia GUZMAN, Delonte R, Virgie WW, Nba JH; ACMG ProfessionalPractice and Guidelines Committee. Addendum: [place] [employer] consensus statement on factor V Leiden mutationtesting. [employer] Med. 2020Jan 07. doi: 10.1038/[id number]-y.PMID: 66246267.Leah CHAVEZ. Prothrombin Thrombophilia. 2005May 29[Updated 2020Dec 09]. In: Jarrod MP, Yancy HH, Celso RA, et al.,editors. Siobhan(R) [Internet]. [place] ([place]): [facility]; 7536-4924. Available from:https://www.ncbi.nlm.nih.gov/books/JYD7123/Rodney Flanagan, Rosalia GUZMAN, Sumit X, Tam B, Dirk EB, Blank P, Marc CS;ACMG Laboratory Agricultural Mechanic Committee. Venous thromboembolismlaboratory testing (factor V Leiden and factor II c.*97G>A),2018 update: a technical standard of the [place] [employer] MedicalGenetics and Genomics (ACMG). [employer] Med. 2018 Oct;20(12):2936-6456.doi: 10.1038/[id number]-w. Epub 2017Aug 09. PMID: 54571837. Performed By: #### L 4500.2000, L3100.8410, L3410.2000, L4500.5000, L4500.0100 ####[facility] [address] [place], [address] Lupus Anticoagulant Compon 1 11-30-2023 aPTT Coag (Bld) [Time] 31.7 s Normal 0.0-43.5 [facility] Comment on above: Performed By: #### L 4500.1999, L3100.8410, L3410.2000, L4500.5000, L4500.0100 ####[facility] [address] [place], [address] DILUTE PT (dPT) 35.1 sec Normal 0.0-47.6 [facility] Comment on above: Performed By: #### L 4500.1999, L3100.8410, L3410.2000, L4500.5000, L4500.0100 ####[facility] [address] [place], [address] dPT Conf. Ratio 1.13 Ratio Normal 0.00-1.34 [facility] Comment on above: Performed By: #### L 4500.1999, L3100.8410, L3410.2000, L4500.5000, L4500.0100 ####[facility] [address] [place], [address] DRVVT 33.0 sec Normal 0.0-47.0 [facility] Comment on above: Performed By: #### L 4500.2000, L3100.8410, L3410.2000, L4500.5000, L4500.0100 ####[facility] [address] [place], [address] Interpretation Comment: Normal . [facility] Comment on above: Result Comment: No l upus anticoagulant was detected. Performed By: #### L 4500.1999, L3100.8410, L3410.2000, L4500.5000, L4500.0100 ####[facility] [address] [place], [address] THROMBIN TIME 14.7 sec Normal 0.0-23.0 [facility] Comment on above: Performed By: #### L 4500.2000, L3100.8410, L3410.2000, L4500.5000, L4500.0100 ####[facility] [address] [place], [address] Urine Cultureon 09-27-2024 URC Mixed Gram Positive Organisms Cascade Count 11,000-25,000 MIXC Mixed contaminants. Submit a new specimen if indicated. Normal [facility] Comment on above: Performed By: #### M 100.2200 ####[facility] [address] [place], [address] CBC W/Diff, Automatedon 09-06 PLT EST ADEQUATE Normal ADEQ [facility] Comment on above: Performed By: #### B TS, L100.0100, L900.0098, L509.4005, L3890.6300, L500.4050, L501.9985, L509.8000, L3890.6100, L3890.6005 ####[facility] [address] [place], [address] SMEAR COMMENT SCANNED Normal [facility] Comment on above: Performed By: #### B TS, L100.0100, L900.0098, L509.4005, L3890.6300, L500.4050, L501.9985, L509.8000, L3890.6100, L3890.6005 ####[facility] [address] [place], [address] Comprehensive Metabolic Prof ilon 09-25-2024 Albumin [Mass/Vol] 3.5 g/dL Normal 3.2-5.0 [facility] Comment on above: Performed By: #### B TS, L100.0100, L900.0098, L509.4005, L3890.6300, L500.4050, L501.9985, L509.8000, L3890.6100, L3890.6005 ####[facility] [address] [place], [place], [address] Albumin/Globulin [Mass ratio] 0.9 {ratio} Normal 0.9-2.4 [facility] Comment on above: Performed By: #### B TS, L100.0100, L900.0098, L509.4005, L3890.6300, L500.4050, L501.9985, L509.8000, L3890.6100, L3890.6005 ####[facility] [address] [place], [place], [address] ALK P 67 U/L Normal 45-117 [facility] Comment on above: Performed By: #### B TS, L100.0100, L900.0098, L509.4005, L3890.6300, L500.4050, L501.9985, L509.8000, L3890.6100, L3890.6005 ####[facility] [address] [place], [place], [phone] ALT [Catalytic activity/Vol] 21 U/L Normal 13-56 [facility] Comment on above: Performed By: #### B TS, L100.0100, L900.0098, L509.4005, L3890.6300, L500.4050, L501.9985, L509.8000, L3890.6100, L3890.6005 ####[facility] [address] [place], [address] AST [Catalytic activity/Vol] 16 U/L Normal 15-37 [facility] Comment on above: Performed By: #### B TS, L100.0100, L900.0098, L509.4005, L3890.6300, L500.4050, L501.9985, L509.8000, L3890.6100, L3890.6005 ####[facility] [address] [place], [place], [phone](219) Bilirubin [Mass/Vol] 0.70 mg/dL Normal 0.20-1.00 [facility] Comment on above: Result Comment: For patients on eltrombopag therapy, use of Dimension [place] TBIL is not recommended. Performed By: #### B TS, L100.0100, L900.0098, L509.4005, L3890.6300, L500.4050, L501.9985, L509.8000, L3890.6100, L3890.6005 ####[facility] [address] [place], [place], [phone](761) BUN/CRE 20.0 RATIO Normal 10-20 [facility] Comment on above: Performed By: #### B TS, L100.0100, L900.0098, L509.4005, L3890.6300, L500.4050, L501.9985, L509.8000, L3890.6100, L3890.6005 ####[facility] [address] [place], [place], [phone](767) CA,Total 9.4 mg/dL Normal 8.5-10.1 [facility] Comment on above: Performed By: #### B TS, L100.0100, L900.0098, L509.4005, L3890.6300, L500.4050, L501.9985, L509.8000, L3890.6100, L3890.6005 ####[facility] [address] [place], [address](785) Chloride [Moles/Vol] 106 mmol/L Normal 98-107 [facility] Comment on above: Performed By: #### B TS, L100.0100, L900.0098, L509.4005, L3890.6300, L500.4050, L501.9985, L509.8000, L3890.6100, L3890.6005 ####[facility] [address] [place], [place], [phone](400) CO2 [Moles/Vol] 23.0 mmol/L Normal 21.0-32.0 [facility] Comment on above: Performed By: #### B TS, L100.0100, L900.0098, L509.4005, L3890.6300, L500.4050, L501.9985, L509.8000, L3890.6100, L3890.6005 ####[facility] [address] [place], [place], [phone](179) Creatinine [Mass/Vol] 0.65 mg/dL Normal 0.55-1.02 [facility] Comment on above: Result Comment: The validity of the calculated GFR GFRAA in patients over70 years has not been determined. Clinical correlation isessential. Performed By: #### B TS, L100.0100, L900.0098, L509.4005, L3890.6300, L500.4050, L501.9985, L509.8000, L3890.6100, L3890.6005 ####[facility] [address] [place], [place], [phone](216) EST GFR - AA 134 mL/min Normal >60 [facility] Comment on above: Result Comment: Afri can [place] GFR Calc Performed By: #### B TS, L100.0100, L900.0098, L509.4005, L3890.6300, L500.4050, L501.9985, L509.8000, L3890.6100, L3890.6005 ####[facility] [address] [place], [address] GAP 7 Normal 5-15 [facility] Comment on above: Performed By: #### B TS, L100.0100, L900.0098, L509.4005, L3890.6300, L500.4050, L501.9985, L509.8000, L3890.6100, L3890.6005 ####[facility] [address] [place], [address] GFR/1.73 sq M.predicted among non-blacks MDRD (S/P/Bld) [Vol rate/Area] 111 mL/min/{1.73_m2} Normal >60 [facility] Comment on above: Result Comment: Non- GFR Calc Performed By: #### B TS, L100.0100, L900.0098, L509.4005, L3890.6300, L500.4050, L501.9985, L509.8000, L3890.6100, L3890.6005 ####[facility] [address] [place], [address] Globulin (S) [Mass/Vol] 3.9 g/dL Normal 2.2-4.2 [facility] Comment on above: Performed By: #### B TS, L100.0100, L900.0098, L509.4005, L3890.6300, L500.4050, L501.9985, L509.8000, L3890.6100, L3890.6005 ####[facility] [address] [place], [address] Glucose [Mass/Vol] 93 mg/dL Normal 74-106 [facility] Comment on above: Performed By: #### B TS, L100.0100, L900.0098, L509.4005, L3890.6300, L500.4050, L501.9985, L509.8000, L3890.6100, L3890.6005 ####[facility] [address] [place], [address] Potassium [Moles/Vol] 3.2 mmol/L Low 3.5-5.1 [facility] Comment on above: Performed By: #### B TS, L100.0100, L900.0098, L509.4005, L3890.6300, L500.4050, L501.9985, L509.8000, L3890.6100, L3890.6005 ####[facility] [address] [place], [place], [phone] Sodium [Moles/Vol] 137 mmol/L Normal 136-145 [facility] Comment on above: Performed By: #### B TS, L100.0100, L900.0098, L509.4005, L3890.6300, L500.4050, L501.9985, L509.8000, L3890.6100, L3890.6005 ####[facility] [address] [place], [place], [phone] T PROT 7.4 g/dL Normal 6.4-8.2 [facility] Comment on above: Performed By: #### B TS, L100.0100, L900.0098, L509.4005, L3890.6300, L500.4050, L501.9985, L509.8000, L3890.6100, L3890.6005 ####[facility] [address] [place], [place], [phone] Urea nitrogen [Mass/Vol] 13 mg/dL Normal 7-18 [facility] Comment on above: Performed By: #### B TS, L100.0100, L900.0098, L509.4005, L3890.6300, L500.4050, L501.9985, L509.8000, L3890.6100, L3890.6005 ####[facility] [address] [place], [place], [phone] HIV - WCHon 09-25-2024 HIV Non-Reactive Normal Nonreactive [facility] Comment on above: Order Comment: Reaso n for Exam: Performed By: #### B TS, L100.0100, L900.0098, L509.4005, L3890.6300, L500.4050, L501.9985, L509.8000, L3890.6100, L3890.6005 ####[facility] [address] [place], [place], [phone] Hemoglobin A1con 09-25-2024 HbA1c (Bld) [Mass fraction] 5.4 % Normal 3.8-5.6 [facility] Comment on above: Result Comment: Norm al < 5.7 % Prediabetic 5.7 - 6.4 % Diabetic >or= 6.5 % Please note range changes. Performed By: #### B TS, L100.0100, L900.0098, L509.4005, L3890.6300, L500.4050, L501.9985, L509.8000, L3890.6100, L3890.6005 ####[facility] [address] [facility] [place], [place], [address] Hepatitis B Surface Antigeno n 09-25-2024 HEP B Surf Ag Non-Reactive Normal Nonreactive [facility] Comment on above: Order Comment: Reaso n for Exam: Performed By: #### B TS, L100.0100, L900.0098, L509.4005, L3890.6300, L500.4050, L501.9985, L509.8000, L3890.6100, L3890.6005 ####[facility] [address] [place], [place], [phone] Hepatitis C Antibodyon 09-25 Hepatitis C AB Non-Reactive Normal Nonreactive [facility] Comment on above: Order Comment: Reaso n for Exam: Result Comment: Non Reactive: < 0.8 Equivocal: >/= 0.8 to < 1.0 Reactive: >/= 1.0The CDC requires that a reactive/equivocal HCV antibodyresult be sent out for confirmation. HCV Quant by PCRtesting. Performed By: #### B TS, L100.0100, L900.0098, L509.4005, L3890.6300, L500.4050, L501.9985, L509.8000, L3890.6100, L3890.6005 ####[facility] [address] [place], [place], [address] L509.8000on 09-25-2024 Syphilis Abs Non-Reactive Normal [facility] Comment on above: Order Comment: Reaso n for Exam: Performed By: #### B TS, L100.0100, L900.0098, L509.4005, L3890.6300, L500.4050, L501.9985, L509.8000, L3890.6100, L3890.6005 ####[facility] [address] [place], [address] NATERAon 09-25-2024 NATURA SEE SCANNED REPORT Normal [facility] Comment on above: Performed By: #### B TS, L100.0100, L900.0098, L509.4005, L3890.6300, L500.4050, L501.9985, L509.8000, L3890.6100, L3890.6005 ####[facility] [address] [place], [place], [phone] Dispersion Mixer Office Visit Reporton 09-25-2024 Dispersion Mixer Office Visit Report Normal [facility] Rubella IgGon 09-25-2024 Rubella IgG Reactive Normal Nonreactive [facility] Comment on above: Order Comment: Reaso n for Exam: Result Comment: Anti body Results Interpretation of Immune Status Non Reactive Presumed Non-Immune Equivocal Equivocal Reactive Presumed Immune Performed By: #### B TS, L100.0100, L900.0098, L509.4005, L3890.6300, L500.4050, L501.9985, L509.8000, L3890.6100, L3890.6005 ####[facility] [address] [place], [place], [phone] Type AND Screenon 09-25-2024 Ab SCREEN GEL Negative Normal [facility] Comment on above: Order Comment: PN Performed By: #### B TS, L100.0100, L900.0098, L509.4005, L3890.6300, L500.4050, L501.9985, L509.8000, L3890.6100, L3890.6005 ####[facility] [address] [place], [place], [address] PAP IG HPV APTIMA 16/18,45on 09-10-2024 ADEQ Comment Normal . [facility] Comment on above: Order Comment: Speci men Comment: [id number] Comment: Source.............CervixSpecimen Comment: Other..............Specimen Comment: No. of containers..01 ThinPrep Vial Result Comment: Sati sfactory for evaluation. Endocervical and/or squamous metaplasticcells (endocervical component) are present. Performed By: #### L 7400.0280 ####[facility] [address] [place], [place], [address] COMM . Normal . [facility] Comment on above: Order Comment: Speci men Comment: [id number] Comment: Source.............CervixSpecimen Comment: Other..............Specimen Comment: No. of containers..01 ThinPrep Vial Performed By: #### L 7400.0280 ####[facility] [address] [place], [place], [address] COMMENT Comment Normal . [facility] Comment on above: Order Comment: Speci men Comment: [id number] Comment: Source.............CervixSpecimen Comment: Other..............Specimen Comment: No. of containers..01 ThinPrep Vial Result Comment: This liquid based ThinPrep(R) pap test was screened withthe use of an image guided system. Performed By: #### L 7400.0280 ####[facility] [address] [place], [address] DIAG Comment Normal . [facility] Comment on above: Order Comment: Speci men Comment: [id number] Comment: Source.............CervixSpecimen Comment: Other..............Specimen Comment: No. of containers..01 ThinPrep Vial Result Comment: NEGA TIVE FOR INTRAEPITHELIAL LESION OR MALIGNANCY. Performed By: #### L 7400.0280 ####[facility] [address] [place], [place], [address] HPV APTIMA, HR Negative Normal Negative [facility] Comment on above: Order Comment: Speci men Comment: [id number] Comment: Source.............CervixSpecimen Comment: Other..............Specimen Comment: No. of containers..01 ThinPrep Vial Result Comment: This nucleic acid amplification test detects fourteen high-risk HPV types (16,18,31,33,35,39,45,51,52,56,58,59,66,68)without differentiation. Performed By: #### L 7400.0280 ####[facility] [address] [place], [address] HPV Ifrah Rfx Comment Normal . [facility] Comment on above: Order Comment: Speci men Comment: [id number] Comment: Source.............CervixSpecimen Comment: Other..............Specimen Comment: No. of containers..01 ThinPrep Vial Result Comment: Crit eria not met, HPV Genotype not performed.Performed at: - [facility] [id number] Director: Ene Gray MD, Phone: [phone] at: = - [facility] [address] [place], [place] [id number] Director: Ene Gray MD, Phone: [phone] Performed By: #### L 7400.0280 ####[facility] [address] [place], [address] PAPSMR Comment Normal . [facility] Comment on above: Order Comment: Speci men Comment: [id number] Comment: Source.............CervixSpecimen Comment: Other..............Specimen Comment: No. of containers..01 ThinPrep Vial Result Comment: The Pap smear is a screening test designed to aid in thedetection of premalignant and malignant conditions of theuterine cervix. It is not a diagnostic procedure andshould not be used as the sole means of detecting cervicalcancer. Both false-positive and false-negative reports dooccur. Performed By: #### L 7400.0280 ####[facility] [address] [place], [place], [phone] PERFORM Comment Normal . [facility] Comment on above: Order Comment: Speci men Comment: [id number] Comment: Source.............CervixSpecimen Comment: Other..............Specimen Comment: No. of containers..01 ThinPrep Vial Result Comment: Nina Bhakta, Rotary Filter Operator (ASCP) Performed By: #### L 7400.0280 ####[facility] [address] [place], [address] Chlamydia/GC JYOTI aptimaon CHLAMY,NUC ACID Negative Normal Negative [facility] Comment on above: Performed By: #### L 501.0900, L7000.1800, M100.0 ####[facility] [id number] [place], [address] GC BY NUC ACID Negative Normal Negative [facility] Comment on above: Result Comment: Perf ormed at: =G - [facility] [address] [place], [place] [id number] Director: Ene Gray MD, Phone: [phone] Performed By: #### L 501.0900, L7000.1800, ####[facility] [address] [place], [address] Urine Cultureon 09-04-2024 URC Mixed Gram Positive Organisms Cascade Count 50,000-80,000 MIXC Mixed contaminants. Submit a new specimen if indicated. Normal [facility] Comment on above: Performed By: #### L 501.0900, L7000.1800, .0 ####[facility] [address] [place], [address] [employer] Office Visit Reporton 09-02-2024 [facility] Office Visit Report Normal [facility] Protein+Creatinine Ratio,Uri neon 09-02-2024 PROT:CRE RATIO 162 mg/g CRE Normal 0-200 [facility] Comment on above: Performed By: #### L 501.0900, L7000.1800, M1.0 ####[facility] [address] [place], [address] Protein (U) [Mass/Vol] 15.5 mg/dL High <11.9 [facility] Comment on above: Performed By: #### L 501.0900, L7000.1800, M100.2200 ####[facility] [address] [place], [address] UR CREAT 95.60 mg/dL Normal NO RANGE EST. [facility] Comment on above: Performed By: #### L 501.0900, L7000.1800, M100.2200 ####[facility] [address] [place], [address] Office Visit Reporton 2023 Office Visit Report Normal [facility] Office Visit Reporton 2023 Office Visit Report Normal [facility] Basic Metabolic Profile (BMP )on 08-06-2024 BUN/CRE 10.5 RATIO Normal 10-20 [facility] Comment on above: Performed By: #### L 100.0100, L500.3400, L500.2500, L700.8000 ####[facility] [address] [place], [address] CA,Total 9.3 mg/dL Normal 8.5-10.1 [facility] Comment on above: Performed By: #### L 100.0100, L500.3400, L500.2500, L700.8000 ####[facility] [address] [place], [address] Chloride [Moles/Vol] 109 mmol/L High 98-107 [facility] Comment on above: Performed By: #### L 100.0100, L500.3400, L500.2500, L700.8000 ####[facility] [address] [place], [address] CO2 [Moles/Vol] 26.0 mmol/L Normal 21.0-32.0 [facility] Comment on above: Performed By: #### L 100.0100, L500.3400, L500.2500, L700.8000 ####[facility] [address] [place], [address] Creatinine [Mass/Vol] 0.67 mg/dL Normal 0.55-1.02 [facility] Comment on above: Result Comment: The validity of the calculated GFR GFRAA in patients over70 years has not been determined. Clinical correlation isessential. Performed By: #### L 100.0100, L500.3400, L500.2500, L700.8000 ####[facility] [address] [place], [address] ECRCL 136.76 ml/min Normal [facility] Comment on above: Performed By: #### L 100.0100, L500.3400, L500.2500, L700.8000 ####[facility] [address] [place], [address] EST GFR - AA 130 mL/min Normal >60 [facility] Comment on above: Result Comment: Afri can [place] GFR Calc Performed By: #### L 100.0100, L500.3400, L500.2500, L700.8000 ####[facility] [address] [place], [address] GAP 4 Low 5-15 [facility] Comment on above: Performed By: #### L 100.0100, L500.3400, L500.2500, L700.8000 ####[facility] [address] [place], [address] GFR/1.73 sq M.predicted among non-blacks MDRD (S/P/Bld) [Vol rate/Area] 107 mL/min/{1.73_m2} Normal >60 [facility] Comment on above: Result Comment: Non- GFR Calc Performed By: #### L 100.0100, L500.3400, L500.2500, L700.8000 ####[facility] [address] [place], [address] Glucose [Mass/Vol] 101 mg/dL Normal 74-106 [facility] Comment on above: Result Comment: Fast ing Glucose result from 100 to 125 mg/dLsuggests IMPAIRED HOMEOSTASIS per A.D.A. criteria. Performed By: #### L 100.0100, L500.3400, L500.2500, L700.8000 ####[facility] [address] [place], [address] Potassium [Moles/Vol] 4.0 mmol/L Normal 3.5-5.1 [facility] Comment on above: Result Comment: Slig ht Hemolysis, Result may be falsely increased. Performed By: #### L 100.0100, L500.3400, L500.2500, L700.8000 ####[facility] [address] [place], [address] Sodium [Moles/Vol] 139 mmol/L Normal 136-145 [facility] Comment on above: Performed By: #### L 100.0100, L500.3400, L500.2500, L700.8000 ####[facility] [address] [place], [address] Urea nitrogen [Mass/Vol] 7 mg/dL Normal 7-18 [facility] Comment on above: Performed By: #### L 100.0100, L500.3400, L500.2500, L700.8000 ####[facility] [address] [place], [address] CBC W/Diff, Automatedon 10-0 2-4 Absolute Lymph 2.80 X10 3/uL Normal 0.83-4.51 [facility] Comment on above: Performed By: #### L 100.0100, L500.3400, L500.2500, L700.8000 ####[facility] [address] [place], [address] Absolute Neut 6.7 X10 3/uL Normal 2.0-7.7 [facility] Comment on above: Performed By: #### L 100.0100, L500.3400, L500.2500, L700.8000 ####[facility] [address] [place], [address] Basophils/100 WBC (Bld) 0.5 % Normal 0-1 [facility] Comment on above: Performed By: #### L 100.0100, L500.3400, L500.2500, L700.8000 ####[facility] [address] [place], [address] Eosinophils/100 WBC (Bld) 0.0 % Normal 0-5 [facility] Comment on above: Performed By: #### L 100.0100, L500.3400, L500.2500, L700.8000 ####[facility] [address] [place], [address] Erythrocyte distribution width (RBC) [Ratio] 12.9 % Normal 11.6-14.6 [facility] Comment on above: Performed By: #### L 100.0100, L500.3400, L500.2500, L700.8000 ####[facility] [address] [place], [address] Hematocrit (Bld) [Volume fraction] 38.6 % Normal 37-47 [facility] Comment on above: Performed By: #### L 100.0100, L500.3400, L500.2500, L700.8000 ####[facility] [address] [place], [address] Hemoglobin (Bld) [Mass/Vol] 12.6 g/dL Normal 12.0-15.0 [facility] Comment on above: Performed By: #### L 100.0100, L500.3400, L500.2500, L700.8000 ####[facility] [address] [place], [address] IG% 0.500 Normal 0.0-0.9 [facility] Comment on above: Result Comment: IG% - Immature Granulocytes (promyelocytes, myelocytes andmetamyelocytes) > 1% indicates that a LEFT SHIFT is Present. Performed By: #### L 100.0100, L500.3400, L500.2500, L700.8000 ####[facility] [address] [place], [address] Lymphocytes/100 WBC (Bld) 28.0 % Normal 19-41 [facility] Comment on above: Performed By: #### L 100.0100, L500.3400, L500.2500, L700.8000 ####[facility] [address] [place], [address] MCH (RBC) [Entitic mass] 29.4 pg Normal 27.0-32.0 [facility] Comment on above: Performed By: #### L 100.0100, L500.3400, L500.2500, L700.8000 ####[facility] [address] [place], [address] MCHC (RBC) [Mass/Vol] 32.6 g/dL Normal 32-36 [facility] Comment on above: Performed By: #### L 100.0100, L500.3400, L500.2500, L700.8000 ####[facility] [address] [place], [address] MCV (RBC) [Entitic vol] 90.0 fL Normal 81-99 [facility] Comment on above: Performed By: #### L 100.0100, L500.3400, L500.2500, L700.8000 ####[facility] [address] [place], [address] Monocytes/100 WBC (Bld) 4.5 % Normal 0-10 [facility] Comment on above: Performed By: #### L 100.0100, L500.3400, L500.2500, L700.8000 ####[facility] [address] [place], [address] Neutrophils/100 WBC (Bld) 66.5 % Normal 47-70 [facility] Comment on above: Performed By: #### L 100.0100, L500.3400, L500.2500, L700.8000 ####[facility] [address] [place], [address] Nucleated RBC (Bld) [#/Vol] 0 10*3/uL Normal 0-5 [facility] Comment on above: Performed By: #### L 100.0100, L500.3400, L500.2500, L700.8000 ####[facility] [address] [place], [address] Platelet mean volume (Bld) [Entitic vol] 10.6 fL Normal 6.2-12.0 [facility] Comment on above: Performed By: #### L 100.0100, L500.3400, L500.2500, L700.8000 ####[facility] [address] [place], [address] Platelets (Bld) [#/Vol] 298 10*3/uL Normal 150-450 [facility] Comment on above: Performed By: #### L 100.0100, L500.3400, L500.2500, L700.8000 ####[facility] [address] [place], [address] RBC (Bld) [#/Vol] 4.29 10*6/uL Normal 4.2-5.4 [facility] Comment on above: Performed By: #### L 100.0100, L500.3400, L500.2500, L700.8000 ####[facility] [address] [place], [address] RDW SD 41.9 fl Normal 35.1-43.9 [facility] Comment on above: Performed By: #### L 100.0100, L500.3400, L500.2500, L700.8000 ####[facility] [address] [place], [address] WBC (Bld) [#/Vol] 10.0 10*3/uL Normal 4.4-11.0 [facility] Comment on above: Performed By: #### L 100.0100, L500.3400, L500.2500, L700.8000 ####[facility] [address] [place], [address] Emergency Department Summary on 08-06-2024 Emergency Department Summary Normal [facility] Liver Profileon 08-06-2024 Albumin [Mass/Vol] 3.7 g/dL Normal 3.2-5.0 [facility] Comment on above: Performed By: #### L 100.0100, L500.3400, L500.2500, L700.8000 ####[facility] [address] [place], [address] ALK P 62 U/L Normal 45-117 [facility] Comment on above: Performed By: #### L 100.0100, L500.3400, L500.2500, L700.8000 ####[facility] [address] [place], [address] ALT [Catalytic activity/Vol] 20 U/L Normal 13-56 [facility] Comment on above: Performed By: #### L 100.0100, L500.3400, L500.2500, L700.8000 ####[facility] [address] [place], [address] AST [Catalytic activity/Vol] 19 U/L Normal 15-37 [facility] Comment on above: Result Comment: Slig ht Hemolysis, Result may be falsely increased. Performed By: #### L 100.0100, L500.3400, L500.2500, L700.8000 ####[facility] [address] [place], [address] Bilirubin [Mass/Vol] 0.50 mg/dL Normal 0.20-1.00 [facility] Comment on above: Result Comment: For patients on eltrombopag therapy, use of Dimension [place] TBIL is not recommended. Performed By: #### L 100.0100, L500.3400, L500.2500, L700.8000 ####[facility] [address] [place], [address] Bilirubin.direct [Mass/Vol] 0.15 mg/dL Normal 0.00-0.30 [facility] Comment on above: Performed By: #### L 100.0100, L500.3400, L500.2500, L700.8000 ####[facility] [address] [place], [address] Globulin (S) [Mass/Vol] 3.7 g/dL Normal 2.2-4.2 [facility] Comment on above: Performed By: #### L 100.0100, L500.3400, L500.2500, L700.8000 ####[facility] [address] [place], [address] T PROT 7.4 g/dL Normal 6.4-8.2 [facility] Comment on above: Performed By: #### L 100.0100, L500.3400, L500.2500, L700.8000 ####[facility] [address] [place], [address] Transvaginal w/Preg USon Transvaginal w/Preg US Normal [facility] hCG Titer Quant., Serumon HCG QUANT. 3737 mIU/mL High 1-3 [facility] Comment on above: Result Comment: hCG levels with Gestational AgeGestational Age hCG mIU/mL (IU/L)0.2 - 1 week 5 - 501-2 weeks 50 - 5002-3 weeks 100 - 45082-3 weeks 500 - 994522-8 weeks 1000 - 377308-0 weeks 43440 - 100,0006-8 weeks 79633 - 200,0002-3 months 77585 - 100,000 Performed By: #### L 100.0100, L500.3400, L500.2500, L700.8000 ####[facility] [address] [place], [address] Emergency Department Summary on 06-30-2024 Emergency Department Summary Normal [facility] Absolute lymphocyte countOrd ered By: Jagjit Ortega on 03-03-2024 Lymphocytes Auto (Unsp spec) [#/Vol] 2.70 10*3/uL 0.83-4.51 [facility] Automated lymphocyte count a s percentage of total leukocytesOrdered By: Jagjit Ortega on 03-03-2024 Lymphocytes/100 WBC Auto (Unsp spec) 30.4 % 19-41 [facility] Basophil percentageOrdered B y: Jagjit Ortega on 03-03-2024 Basophils/100 WBC (Bld) 0.6 % 0-1 [facility] Chloride [Moles/Vol] 111 mmol/L 98-107 [facility] Eosinophils/100 WBC (Bld) 0.0 % 0-5 [facility] Glucose [Mass/Vol] 100 mg/dL 74-106 [facility] Comment on above: Fasting Glucose resu lt from 100 to 125 mg/dL suggests IMPAIRED HOMEOSTASIS per A.D.A. criteria. Hemoglobin (Bld) [Mass/Vol] 13.1 g/dL 12.0-15.0 [facility] Monocytes/100 WBC (Bld) 5.6 % 0-10 [facility] Neutrophils (Bld) [#/Vol] 5.6 10*3/uL 2.0-7.7 [facility] Neutrophils/100 WBC (Bld) 63.2 % 47-70 [facility] Potassium [Moles/Vol] 3.2 mmol/L 3.5-5.1 [facility] Sodium [Moles/Vol] 142 mmol/L 136-145 [facility] WBC (Bld) [#/Vol] 8.9 10*3/uL 4.4-11.0 [facility] Blood platelet adequacy dete ction by light microscopyOrdered By: Jagjit Ortega on 03-03-2024 Platelets LM Ql (Bld) ADEQUATE ADEQ [facility] Determination of erythrocyte mean corpuscular volume (MCV)Ordered By: Jagjit Ortega on 03-03-2024 MCV (RBC) [Entitic vol] 87.9 fL 81-99 [facility] Erythrocyte distribution wid th ratioOrdered By: Jagjit Ortega on 03-03-2024 Erythrocyte distribution width (RBC) [Ratio] 13.0 % 11.6-14.6 [facility] Erythrocyte distribution wid th standard deviationOrdered By: Jagjit Ortega on 03-03-2024 Erythrocyte distribution width (RBC) [Entitic vol] 41.3 fL 35.1-43.9 [facility] Hematocrit Auto (Bld) [Volum e fraction]Ordered By: Jagjit Ortega on 03-03-2024 Hematocrit (Bld) [Volume fraction] 39.4 % 37-47 [facility] Immature granulocytes/100 WB C Auto (Bld)Ordered By: Jagjit Ortega on 03-03-2024 Immature granulocytes/100 WBC (Bld) 0.200 % 0.0-0.9 [facility] Comment on above: IG% - Immature Granu locytes (promyelocytes, myelocytes and metamyelocytes) > 1% indicates that a LEFT SHIFT is Present. Laboratory - Chemistry and C hemistry - challengeOrdered By: Jagjit Ortega on 03-03-2024 CO2 [Moles/Vol] 27.0 mmol/L 21.0-32.0 [facility] Urea nitrogen/Creatinine [Mass ratio] 8.7 mg/mg 10-20 [facility] Laboratory - Hematology and Cell countsOrdered By: Jagjit Ortega on 03-03-2024 MCH (RBC) [Entitic mass] 29.2 pg 27.0-32.0 [facility] MCHC (RBC) [Mass/Vol] 33.2 g/dL 32-36 [facility] Nucleated RBC/100 WBC (Bld) [Ratio] 0 % 0-5 [facility] Platelet mean volume (Bld) [Entitic vol] 11.5 fL 6.2-12.0 [facility] No Panel InformationOrdered By: Jagjit Ortega on 03-03-2024 Estimated GFR (MDRD) Amer 104 mL/min >60 [facility] Comment on above: GFR Calc Estimated GFR (MDRD) Non-Af Amer 86 mL/min >60 [facility] Comment on above: Non- GFR Calc Platelet Count TNP [facility] Comment on above: Test not performedPl [...] 03-03-2024 RBC (Bld) [#/Vol] 4.48 10*6/uL 4.2-5.4 [facility] Serum or plasma calcium omega urement (mass/volume)Ordered By: Jagjit Ortega on 03-03-2024 Calcium [Mass/Vol] 9.0 mg/dL 8.5-10.1 [facility] Serum or plasma creatinine m easurement (mass/volume)Ordered By: Jagjit Ortega on 03-03-2024 Creatinine [Mass/Vol] 0.81 mg/dL 0.55-1.02 [facility] Comment on above: The validity of the calculated GFR & GFRAA in patients over 70 years has not been determined. Clinical correlation is essential. Serum or plasma urea nitroge n measurement (mass/volume)Ordered By: Jagjit Ortega on 03-03-2024 Urea nitrogen [Mass/Vol] 7 mg/dL 7-18 [facility] Thin prep Papanicolaou smear with manual screeningOrdered By: Jagjit Ortega on 03-03-2024 Thin prep Papanicolaou smear with manual screening 4 5-15 [facility] Absolute lymphocyte countOrd ered By: Nito Nur on 02-22-2024 Lymphocytes Auto (Unsp spec) [#/Vol] 3.30 10*3/uL 0.83-4.51 [facility] Automated lymphocyte count a s percentage of total leukocytesOrdered By: Nito Nur on 02-22-2024 Lymphocytes/100 WBC Auto (Unsp spec) 27.5 % 19-41 [facility] Basophil percentageOrdered B y: Nito Nur on 02-22-2024 Basophil percentage 0-5 SEEN /hpf 0-5 [facility] Basophils/100 WBC (Bld) 0.5 % 0-1 [facility] Bilirubin [Mass/Vol] 0.80 mg/dL 0.20-1.00 [facility] Comment on above: For patients on eltr ombopag therapy, use of Dimension [place] TBIL is not recommended. Chloride [Moles/Vol] 110 mmol/L 98-107 [facility] Eosinophils/100 WBC (Bld) 0.0 % 0-5 [facility] Glucose [Mass/Vol] 85 mg/dL 74-106 [facility] Hemoglobin (Bld) [Mass/Vol] 13.7 g/dL 12.0-15.0 [facility] Monocytes/100 WBC (Bld) 6.2 % 0-10 [facility] Neutrophils (Bld) [#/Vol] 7.9 10*3/uL 2.0-7.7 [facility] Neutrophils/100 WBC (Bld) 65.4 % 47-70 [facility] Potassium [Moles/Vol] 2.9 mmol/L 3.5-5.1 [facility] Protein [Mass/Vol] 8.0 g/dL 6.4-8.2 [facility] Sodium [Moles/Vol] 140 mmol/L 136-145 [facility] WBC (Bld) [#/Vol] 12.0 10*3/uL 4.4-11.0 [facility] Bilirubin Test strip Ql (U)O rdered By: Nito Nur on 02-22-2024 Bilirubin Ql (U) Negative Negative [facility] Determination of erythrocyte mean corpuscular volume (MCV)Ordered By: Nito Nur on 02-22-2024 MCV (RBC) [Entitic vol] 87.2 fL 81-99 [facility] Erythrocyte distribution wid th ratioOrdered By: Nito Nur on 02-22-2024 Erythrocyte distribution width (RBC) [Ratio] 13.0 % 11.6-14.6 [facility] Erythrocyte distribution wid th standard deviationOrdered By: Nito Nur on 02-22-2024 Erythrocyte distribution width (RBC) [Entitic vol] 40.6 fL 35.1-43.9 [facility] Hematocrit Auto (Bld) [Volum e fraction]Ordered By: Nito Nur on 02-22-2024 Hematocrit (Bld) [Volume fraction] 41.4 % 37-47 [facility] Immature granulocytes/100 WB C Auto (Bld)Ordered By: Nito Nur on 02-22-2024 Immature granulocytes/100 WBC (Bld) 0.400 % 0.0-0.9 [facility] Comment on above: IG% - Immature Granu locytes (promyelocytes, myelocytes and metamyelocytes) > 1% indicates that a LEFT SHIFT is Present. Ketones Test strip Ql (U)Ord ered By: Nito Nur on 02-22-2024 Ketones Ql (U) Negative Negative [facility] Laboratory - Chemistry and C hemistry - challengeOrdered By: Nito Nur on 02-22-2024 Albumin/Globulin [Mass ratio] 1.1 {ratio} 0.9-2.4 [facility] ALP [Catalytic activity/Vol] 67 U/L 45-117 [facility] ALT [Catalytic activity/Vol] 19 U/L 13-56 [facility] CO2 [Moles/Vol] 24.0 mmol/L 21.0-32.0 [facility] Globulin (S) [Mass/Vol] 3.9 g/dL 2.2-4.2 [facility] Magnesium [Mass/Vol] 2.1 mg/dL 1.6-2.6 [facility] Urea nitrogen/Creatinine [Mass ratio] 10.5 mg/mg 10-20 [facility] Laboratory - Hematology and Cell countsOrdered By: Nito Nur on 02-22-2024 MCH (RBC) [Entitic mass] 28.8 pg 27.0-32.0 [facility] MCHC (RBC) [Mass/Vol] 33.1 g/dL 32-36 [facility] Nucleated RBC/100 WBC (Bld) [Ratio] 0 % 0-5 [facility] Platelet mean volume (Bld) [Entitic vol] 10.3 fL 6.2-12.0 [facility] Platelets (Bld) [#/Vol] 280 10*3/uL 150-450 [facility] Mucus LM Ql (Urine sed)Order ed By: Nito Nur on 02-22-2024 Mucus Ql (Urine sed) RARE /hpf [facility] Nitrite Test strip Ql (U)Ord ered By: Nito Nur on 02-22-2024 Nitrite Ql (U) Negative Negative [facility] No Panel InformationOrdered By: Nito Nur on 02-22-2024 Urine RBC 0-5 SEEN /hpf 0-5 [facility] Estimated Creatinine Clearance Calc 114.66 ml/min [facility] Estimated GFR (MDRD) Amer 97 mL/min >60 [facility] Comment on above: GFR Calc Estimated GFR (MDRD) Non-Af Amer 81 mL/min >60 [facility] Comment on above: Non- GFR Calc Protein Test strip Ql (U)Ord ered By: Nito Nur on 02-22-2024 Protein Ql (U) 30 mg/dl Negative [facility] RBC Auto (Bld) [#/Vol]Ordere d By: Nito Nur on 02-22-2024 RBC (Bld) [#/Vol] 4.75 10*6/uL 4.2-5.4 [facility] Serum or plasma calcium omega urement (mass/volume)Ordered By: Nito Nur on 02-22-2024 Calcium [Mass/Vol] 9.2 mg/dL 8.5-10.1 [facility] Serum or plasma choriogonado tropin detectionOrdered By: Nito Nur on 02-22-2024 HCG ( test) Ql Negative [facility] Serum or plasma creatinine m easurement (mass/volume)Ordered By: Nito Nur on 02-22-2024 Creatinine [Mass/Vol] 0.86 mg/dL 0.55-1.02 [facility] Comment on above: The validity of the calculated GFR & GFRAA in patients over 70 years has not been determined. Clinical correlation is essential. Serum or plasma urea nitroge n measurement (mass/volume)Ordered By: Nito Nur on 02-22-2024 Urea nitrogen [Mass/Vol] 9 mg/dL 7-18 [facility] Squamous epithelial cells de tection in urine sediment by light microscopyOrdered By: Nito Nur on 02-22-2024 Epithelial cells.squamous LM Ql (Urine sed) 0-5 SEEN /hpf 5-10 [facility] Thin prep Papanicolaou smear with manual screeningOrdered By: Nito Nur on 02-22-2024 Thin prep Papanicolaou smear with manual screening 4.1 g/dL 3.2-5.0 [facility] Thin prep Papanicolaou smear with manual screening 21 U/L 15-37 [facility] Thin prep Papanicolaou smear with manual screening 6 5-15 [facility] Urine blood detectionOrdered By: Nito Nur on 02-22-2024 RBC Ql (U) 10 /ul Negative [facility] Urine clarityOrdered By: Kayla Nur on 02-22-2024 Clarity (U) Clear Clear [facility] Urine color determinationOrd ered By: Nito Nur on 02-22-2024 Color (U) Yellow Yellow [facility] Urine glucose detectionOrder ed By: Nito Nur on 02-22-2024 Glucose Ql (U) Normal mg/dl Normal [facility] Urine leukocyte esterase det ection by dipstickOrdered By: Nito Nur on 02-22-2024 Leukocyte esterase Test strip Ql (U) 100 /ul Negative [facility] Urine pHOrdered By: Nito ramon on 02-22-2024 pH (U) 5.0 [pH] 5.0 - 8.0 [facility] Urine sediment bacteria coun t by microscopy (number/high power field)Ordered By: Nito Nur on 02-22-2024 Bacteria LM.HPF (Urine sed) [#/Area] RARE /hpf None Seen [facility] Urine specific gravity measu rementOrdered By: Nito Nur on 02-22-2024 Specific gravity (U) [Rel density] 1.020 1.002-1.030 [facility] Urine urobilinogen measureme ntOrdered By: Nito Nur on 02-22-2024 Urobilinogen Ql (U) Normal mg/dl Normal [facility] Absolute lymphocyte countOrd ered By: Jose Wynn on 12-05-2023 Lymphocytes Auto (Unsp spec) [#/Vol] 2.78 10*3/uL 0.83-4.51 [facility] Automated lymphocyte count a s percentage of total leukocytesOrdered By: Jose Wynn on 12-05-2023 Lymphocytes/100 WBC Auto (Unsp spec) 34.2 % 19-41 [facility] Basophil percentageOrdered B y: Jose Wynn on 12-05-2023 Basophil percentage 0-5 SEEN /hpf 0-5 [facility] Basophils/100 WBC (Bld) 0.7 % 0-1 [facility] Chloride [Moles/Vol] 112 mmol/L 98-107 [facility] Eosinophils/100 WBC (Bld) 5.8 % 0-5 [facility] Glucose [Mass/Vol] 107 mg/dL 74-106 [facility] Comment on above: Fasting Glucose resu lt from 100 to 125 mg/dL suggests IMPAIRED HOMEOSTASIS per A.D.A. criteria. Hemoglobin (Bld) [Mass/Vol] 12.9 g/dL 12.0-15.0 [facility] Monocytes/100 WBC (Bld) 5.3 % 0-10 [facility] Neutrophils (Bld) [#/Vol] 4.4 10*3/uL 2.0-7.7 [facility] Neutrophils/100 WBC (Bld) 53.8 % 47-70 [facility] Potassium [Moles/Vol] 3.3 mmol/L 3.5-5.1 [facility] Sodium [Moles/Vol] 142 mmol/L 136-145 [facility] WBC (Bld) [#/Vol] 8.1 10*3/uL 4.4-11.0 [facility] Bilirubin Test strip Ql (U)O rdered By: Jose Wynn on 12-05-2023 Bilirubin Ql (U) Negative Negative [facility] Determination of erythrocyte mean corpuscular volume (MCV)Ordered By: Jose Wynn on 12-05-2023 MCV (RBC) [Entitic vol] 86.4 fL 81-99 [facility] Erythrocyte distribution wid th ratioOrdered By: Jose Wynn on 12-05-2023 Erythrocyte distribution width (RBC) [Ratio] 13.3 % 11.6-14.6 [facility] Erythrocyte distribution wid th standard deviationOrdered By: Jose Wynn on 12-05-2023 Erythrocyte distribution width (RBC) [Entitic vol] 41.4 fL 35.1-43.9 [facility] Hematocrit Auto (Bld) [Volum e fraction]Ordered By: Jose Wynn on 12-05-2023 Hematocrit (Bld) [Volume fraction] 39.9 % 37-47 [facility] Immature granulocytes/100 WB C Auto (Bld)Ordered By: Jose Wynn on 12-05-2023 Immature granulocytes/100 WBC (Bld) 0.200 % 0.0-0.9 [facility] Comment on above: IG% - Immature Granu locytes (promyelocytes, myelocytes and metamyelocytes) > 1% indicates that a LEFT SHIFT is Present. Ketones Test strip Ql (U)Ord ered By: Jose Wynn on 12-05-2023 Ketones Ql (U) 5 mg/dl Negative [facility] - Chemistry and C hemistry - challengeOrdered By: Jose Wynn on 12-05-2023 CO2 [Moles/Vol] 25.0 mmol/L 21.0-32.0 [facility] Urea nitrogen/Creatinine [Mass ratio] 8.3 mg/mg 10-20 [facility] - Hematology and Cell countsOrdered By: Jose Wynn on 12-05-2023 MCH (RBC) [Entitic mass] 27.9 pg 27.0-32.0 [facility] MCHC (RBC) [Mass/Vol] 32.3 g/dL 32-36 [facility] Nucleated RBC/100 WBC (Bld) [Ratio] 0 % 0-5 [facility] Platelets (Bld) [#/Vol] 281 10*3/uL 150-450 [facility] Mucus LM Ql (Urine sed)Order ed By: Jose Wynn on 12-05-2023 Mucus Ql (Urine sed) 2+ /hpf [facility] Nitrite Test strip Ql (U)Ord ered By: Jose Wynn on 12-05-2023 Nitrite Ql (U) Negative Negative [facility] No Panel InformationOrdered By: Jose Wynn on 12-05-2023 Urine RBC 0-5 SEEN /hpf 0-5 [facility] Estimated Creatinine Clearance Calc 123.09 ml/min [facility] Estimated GFR (MDRD) Amer 99 mL/min >60 [facility] Comment on above: GFR Calc Estimated GFR (MDRD) Non-Af Amer 82 mL/min >60 [facility] Comment on above: Non- GFR Calc Platelet mean volume Ryan-Ec ker (Bld) [Entitic vol]Ordered By: Jose Wynn on 12-05-2023 Platelet mean volume (Bld) [Entitic vol] 10.3 fL 6.2-12.0 [facility] Protein Test strip Ql (U)Ord ered By: Jose Wynn on 12-05-2023 Protein Ql (U) 30 mg/dl Negative [facility] RBC Auto (Bld) [#/Vol]Ordere d By: Jose Wynn on 12-05-2023 RBC (Bld) [#/Vol] 4.62 10*6/uL 4.2-5.4 [facility] Serum or plasma calcium omega urement (mass/volume)Ordered By: Jose Wynn on 12-05-2023 Calcium [Mass/Vol] 9.1 mg/dL 8.5-10.1 [facility] Serum or plasma choriogonado tropin detectionOrdered By: Jose Wynn on 12-05-2023 HCG ( test) Ql Negative [facility] Serum or plasma creatinine m easurement (mass/volume)Ordered By: Jose Wynn on 12-05-2023 Creatinine [Mass/Vol] 0.84 mg/dL 0.55-1.02 [facility] Comment on above: The validity of the calculated GFR & GFRAA in patients over 70 years has not been determined. Clinical correlation is essential. Serum or plasma urea nitroge n measurement (mass/volume)Ordered By: Jose Wynn on 12-05-2023 Urea nitrogen [Mass/Vol] 7 mg/dL 7-18 [facility] Squamous epithelial cells de tection in urine sediment by light microscopyOrdered By: Jose Wynn on 12-05-2023 Epithelial cells.squamous LM Ql (Urine sed) 5-10 SEEN /hpf 5-10 [facility] Thin prep Papanicolaou smear with manual screeningOrdered By: Jose Wynn on 12-05-2023 Thin prep Papanicolaou smear with manual screening 5 5-15 [facility] Urine blood detectionOrdered By: Remus Wynn on 12-05-2023 RBC Ql (U) 10 /ul Negative [facility] Urine clarityOrdered By: Ksenia Wynn on 12-05-2023 Clarity (U) Cloudy Clear [facility] Urine color determinationOrd ered By: Jose Tianna on 12-05-2023 Color (U) Yellow Yellow [facility] Urine glucose detectionOrder ed By: Jose Tianna on 12-05-2023 Glucose Ql (U) Normal mg/dl Normal [facility] Urine leukocyte esterase det ection by dipstickOrdered By: Jose Wynn on 12-05-2023 Leukocyte esterase Test strip Ql (U) 25 /ul Negative [facility] Urine pHOrdered By: Jose Un gur on 12-05-2023 pH (U) 6.0 [pH] 5.0 - 8.0 [facility] Urine sediment bacteria coun t by microscopy (number/high power field)Ordered By: Jose Wynn on 12-05-2023 Bacteria LM.HPF (Urine sed) [#/Area] 1 /[HPF] None Seen [facility] Urine specific gravity measu rementOrdered By: Jose Wynn on 12-05-2023 Specific gravity (U) [Rel density] 1.020 1.002-1.030 [facility] Urine urobilinogen measureme ntOrdered By: Jose Wynn on 12-05-2023 Urobilinogen Ql (U) 1 mg/dl Normal [facility] Absolute lymphocyte countOrd ered By: Kseniaus Wynn on 11-17-2023 Lymphocytes Auto (Unsp spec) [#/Vol] 2.52 10*3/uL 0.83-4.51 [facility] Basophil percentageOrdered B y: Jose Wynn on 11-17-2023 Basophils/100 WBC (Bld) 0.9 % 0-1 [facility] Bilirubin [Mass/Vol] 0.60 mg/dL 0.20-1.00 [facility] Comment on above: For patients on eltr ombopag therapy, use of Dimension [place] TBIL is not recommended. Chloride [Moles/Vol] 110 mmol/L 98-107 [facility] Eosinophils/100 WBC (Bld) 0.1 % 0-5 [facility] Glucose [Mass/Vol] 103 mg/dL 74-106 [facility] Comment on above: Fasting Glucose resu lt from 100 to 125 mg/dL suggests IMPAIRED HOMEOSTASIS per A.D.A. criteria. Neutrophils (Bld) [#/Vol] 5.2 10*3/uL 2.0-7.7 [facility] Neutrophils/100 WBC (Bld) 63.4 % 47-70 [facility] Potassium [Moles/Vol] 3.2 mmol/L 3.5-5.1 [facility] Protein [Mass/Vol] 7.9 g/dL 6.4-8.2 [facility] Sodium [Moles/Vol] 141 mmol/L 136-145 [facility] WBC (Bld) [#/Vol] 8.2 10*3/uL 4.4-11.0 [facility] Beta hCG serum qualOrdered B y: Jose Wynn on 11-17-2023 Beta HCG ( test) Ql Negative [facility] Blood erythrocytes count (nu mber/volume)Ordered By: Jose Wynn on 11-17-2023 RBC (Bld) [#/Vol] 4.99 10*6/uL 4.2-5.4 [facility] Blood hemoglobin measurement (mass/volume)Ordered By: Jose Wynn on 11-17-2023 Hemoglobin (Bld) [Mass/Vol] 14.0 g/dL 12.0-15.0 [facility] Blood lymphocytes/100 leukoc ytesOrdered By: Jose Wynn on 11-17-2023 Lymphocytes/100 WBC (Bld) 30.6 % 19-41 [facility] Blood monocytes/100 leukocyt esOrdered By: Jose Wynn on 11-17-2023 Monocytes/100 WBC (Bld) 4.6 % 0-10 [facility] Blood platelet mean volumeOr dered By: Jose Wynn on 11-17-2023 Platelet mean volume (Bld) [Entitic vol] 10.5 fL 6.2-12.0 [facility] Determination of erythrocyte mean corpuscular volume (MCV)Ordered By: Jose Wynn on 11-17-2023 MCV (RBC) [Entitic vol] 86.4 fL 81-99 [facility] Hematocrit Auto (Bld) [Volum e fraction]Ordered By: Jose Wynn on 11-17-2023 Hematocrit (Bld) [Volume fraction] 43.1 % 37-47 [facility] - Chemistry and C hemistry - challengeOrdered By: Jose Wynn on 11-17-2023 ALP [Catalytic activity/Vol] 85 U/L 45-117 [facility] ALT [Catalytic activity/Vol] 39 U/L 13-56 [facility] CO2 [Moles/Vol] 25.0 mmol/L 21.0-32.0 [facility] Globulin (S) [Mass/Vol] 4.0 g/dL 2.2-4.2 [facility] Lipase [Catalytic activity/Vol] 26 U/L 13-75 [facility] Comment on above: Please note:LIPASE r evised reference range effective 23. New Lipase methodology. Expected to produce lower values than the previous assay method. NEW Reference Range: 13 - 75 U/L Urea nitrogen/Creatinine [Mass ratio] 8.7 mg/mg 10-20 [facility] - Hematology and Cell countsOrdered By: Jose Wynn on 11-17-2023 Erythrocyte distribution width (RBC) [Entitic vol] 42.1 fL 35.1-43.9 [facility] Erythrocyte distribution width (RBC) [Ratio] 13.5 % 11.6-14.6 [facility] Immature granulocytes/100 WBC (Bld) 0.400 % 0.0-0.9 [facility] Comment on above: IG% - Immature Granu locytes (promyelocytes, myelocytes and metamyelocytes) > 1% indicates that a LEFT SHIFT is Present. MCH (RBC) [Entitic mass] 28.1 pg 27.0-32.0 [facility] Nucleated RBC/100 WBC (Bld) [Ratio] 0 % 0-5 [facility] MCHC Auto (RBC) [Mass/Vol]Or dered By: Jose Wynn on 11-17-2023 MCHC (RBC) [Mass/Vol] 32.5 g/dL 32-36 [facility] No Panel InformationOrdered By: Jose Wynn on 11-17-2023 Estimated Creatinine Clearance Calc 116.73 ml/min [facility] Estimated GFR (MDRD) Amer 90 mL/min >60 [facility] Comment on above: GFR Calc Estimated GFR (MDRD) Non-Af Amer 74 mL/min >60 [facility] Comment on above: Non- GFR Calc Ethyl Alcohol Level < 3.0 mg/dL [facility] Comment on above: The serum:whole bloo d ethanol ratio is approximately 1.14and varies slightly with hematocrit. Medical Alcohol reference interval and critical value innon-tolerant individuals; 50 - 100 Impairment 100 Intoxication 100 - 250 Severe Poisoning 250 - 400 Deep/possible fatal coma Platelets bldOrdered By: Ksenia Tianna on 11-17-2023 Platelets (Bld) [#/Vol] 263 10*3/uL 150-450 [facility] Serum or plasma albumin omega urement (mass/volume)Ordered By: Ksenia Tianna on 11-17-2023 Albumin [Mass/Vol] 3.9 g/dL 3.2-5.0 [facility] Serum or plasma albumin/glob ulin mass ratioOrdered By: [facility] Tianna on 11-17-2023 Albumin/Globulin [Mass ratio] 1.0 {ratio} 0.9-2.4 [facility] Serum or plasma calcium omega urement (mass/volume)Ordered By: [facility] Tianna on 11-17-2023 Calcium [Mass/Vol] 9.6 mg/dL 8.5-10.1 [facility] Serum or plasma creatinine m easurement (mass/volume)Ordered By: [facility] Tianna on 11-17-2023 Creatinine [Mass/Vol] 0.92 mg/dL 0.55-1.02 [facility] Comment on above: The validity of the calculated GFR & GFRAA in patients over 70 years has not been determined. Clinical correlation is essential. Serum or plasma urea nitroge n measurement (mass/volume)Ordered By: [facility] Tianna on 11-17-2023 Urea nitrogen [Mass/Vol] 8 mg/dL 7-18 [facility] Thin prep Papanicolaou smear with manual screeningOrdered By: Jose Wynn on 11-17-2023 Thin prep Papanicolaou smear with manual screening 24 U/L 15-37 [facility] Thin prep Papanicolaou smear with manual screening 6 5-15 [facility] Absolute lymphocyte countOrd ered By: Garrett Brooks on 12-21-2023 Lymphocytes Auto (Unsp spec) [#/Vol] 2.95 10*3/uL 0.83-4.51 [facility] Basophil percentageOrdered B y: Garrett Brooks on 10-25-2023 Basophil percentage 0-5 SEEN /hpf 0-5 [facility] Basophils/100 WBC (Bld) 0.6 % 0-1 [facility] Bilirubin [Mass/Vol] 0.70 mg/dL 0.20-1.00 [facility] Comment on above: For patients on eltr ombopag therapy, use of Dimension [place] TBIL is not recommended. Chloride [Moles/Vol] 108 mmol/L 98-107 [facility] Eosinophils/100 WBC (Bld) 4.8 % 0-5 [facility] Glucose [Mass/Vol] 119 mg/dL 74-106 [facility] Comment on above: Fasting Glucose resu lt from 100 to 125 mg/dL suggests IMPAIRED HOMEOSTASIS per A.D.A. criteria. Neutrophils (Bld) [#/Vol] 4.6 10*3/uL 2.0-7.7 [facility] Neutrophils/100 WBC (Bld) 53.6 % 47-70 [facility] Potassium [Moles/Vol] 3.6 mmol/L 3.5-5.1 [facility] Protein [Mass/Vol] 7.7 g/dL 6.4-8.2 [facility] Sodium [Moles/Vol] 141 mmol/L 136-145 [facility] WBC (Bld) [#/Vol] 8.6 10*3/uL 4.4-11.0 [facility] Beta hCG serum qualOrdered B y: Garrett Brooks on 10-25-2023 Beta HCG ( test) Ql Negative [facility] Bilirubin Test strip Ql (U)O rdered By: Garrett Brooks on 10-25-2023 Bilirubin Ql (U) Negative Negative [facility] Blood erythrocytes count (nu mber/volume)Ordered By: Garrett Brooks on 10-25-2023 RBC (Bld) [#/Vol] 4.69 10*6/uL 4.2-5.4 [facility] Blood hemoglobin measurement (mass/volume)Ordered By: Garrett Brooks on 10-25-2023 Hemoglobin (Bld) [Mass/Vol] 13.1 g/dL 12.0-15.0 [facility] Blood lymphocytes/100 leukoc ytesOrdered By: Garrett Brooks on 10-25-2023 Lymphocytes/100 WBC (Bld) 34.3 % 19-41 [facility] Blood monocytes/100 leukocyt esOrdered By: Garrett Brooks on 10-25-2023 Monocytes/100 WBC (Bld) 6.5 % 0-10 [facility] Blood platelet mean volumeOr dered By: Garrett Brooks on 10-25-2023 Platelet mean volume (Bld) [Entitic vol] 10.2 fL 6.2-12.0 [facility] Determination of erythrocyte mean corpuscular volume (MCV)Ordered By: Garrett Brooks on 10-25-2023 MCV (RBC) [Entitic vol] 87.0 fL 81-99 [facility] Hematocrit Auto (Bld) [Volum e fraction]Ordered By: Garrett Brooks on 10-25-2023 Hematocrit (Bld) [Volume fraction] 40.8 % 37-47 [facility] Ketones Test strip Ql (U)Ord ered By: Garrett Brooks on 10-25-2023 Ketones Ql (U) Negative Negative [facility] - Chemistry and C hemistry - challengeOrdered By: Garrett Brooks on 10-25-2023 ALP [Catalytic activity/Vol] 81 U/L 45-117 [facility] ALT [Catalytic activity/Vol] 22 U/L 13-56 [facility] CO2 [Moles/Vol] 26.0 mmol/L 21.0-32.0 [facility] Globulin (S) [Mass/Vol] 4.0 g/dL 2.2-4.2 [facility] Lipase [Catalytic activity/Vol] 22 U/L 13-75 [facility] Comment on above: Please note:LIPASE r evised reference range effective 23. New Lipase methodology. Expected to produce lower values than the previous assay method. NEW Reference Range: 13 - 75 U/L Urea nitrogen/Creatinine [Mass ratio] 7.2 mg/mg 10-20 [facility] - Hematology and Cell countsOrdered By: Garrett Brooks on 10-25-2023 Erythrocyte distribution width (RBC) [Entitic vol] 41.5 fL 35.1-43.9 [facility] Erythrocyte distribution width (RBC) [Ratio] 13.3 % 11.6-14.6 [facility] Immature granulocytes/100 WBC (Bld) 0.200 % 0.0-0.9 [facility] Comment on above: IG% - Immature Granu locytes (promyelocytes, myelocytes and metamyelocytes) > 1% indicates that a LEFT SHIFT is Present. MCH (RBC) [Entitic mass] 27.9 pg 27.0-32.0 [facility] Nucleated RBC/100 WBC (Bld) [Ratio] 0 % 0-5 [facility] MCHC Auto (RBC) [Mass/Vol]Or dered By: Garrett Brooks on 10-25-2023 MCHC (RBC) [Mass/Vol] 32.1 g/dL 32-36 [facility] Mucus LM Ql (Urine sed)Order ed By: Garrett Brooks on 10-25-2023 Mucus Ql (Urine sed) 0 SEEN /hpf [facility] Nitrite Test strip Ql (U)Ord ered By: Garrett Brooks on 10-25-2023 Nitrite Ql (U) Negative Negative [facility] No Panel InformationOrdered By: Garrett Brooks on 10-25-2023 Estimated Creatinine Clearance Calc 81.49 ml/min [facility] Estimated GFR (MDRD) Amer 100 mL/min >60 [facility] Comment on above: GFR Calc Estimated GFR (MDRD) Non-Af Amer 82 mL/min >60 [facility] Comment on above: Non- GFR Calc Platelets bldOrdered By: Anirudh Brooks on 10-25-2023 Platelets (Bld) [#/Vol] 257 10*3/uL 150-450 [facility] Protein Test strip Ql (U)Ord ered By: Garrett Brooks on 10-25-2023 Protein Ql (U) 15 mg/dl Negative [facility] Serum or plasma albumin omega urement (mass/volume)Ordered By: Garrett Brooks on 10-25-2023 Albumin [Mass/Vol] 3.7 g/dL 3.2-5.0 [facility] Serum or plasma albumin/glob ulin mass ratioOrdered By: Garrett Brooks on 10-25-2023 Albumin/Globulin [Mass ratio] 0.9 {ratio} 0.9-2.4 [facility] Serum or plasma calcium omega urement (mass/volume)Ordered By: Garrett Brooks on 10-25-2023 Calcium [Mass/Vol] 9.4 mg/dL 8.5-10.1 [facility] Serum or plasma creatinine m easurement (mass/volume)Ordered By: Garrett Brooks on 10-25-2023 Creatinine [Mass/Vol] 0.84 mg/dL 0.55-1.02 [facility] Comment on above: The validity of the calculated GFR & GFRAA in patients over 70 years has not been determined. Clinical correlation is essential. Serum or plasma urea nitroge n measurement (mass/volume)Ordered By: Garrett Brooks on 10-25-2023 Urea nitrogen [Mass/Vol] 6 mg/dL 7-18 [facility] Squamous epithelial cells de tection in urine sediment by light microscopyOrdered By: Garrett Brooks on 10-25-2023 Epithelial cells.squamous LM Ql (Urine sed) 0-5 SEEN /hpf 5-10 [facility] Thin prep Papanicolaou smear with manual screeningOrdered By: Garrett Brooks on 10-25-2023 Thin prep Papanicolaou smear with manual screening 14 U/L 15-37 [facility] Thin prep Papanicolaou smear with manual screening 7 5-15 [facility] Urine blood detectionOrdered By: Garrett Brooks on 10-25-2023 RBC Ql (U) Negative Negative [facility] RBC Ql (U) 0 SEEN /hpf 0-5 [facility] Urine clarityOrdered By: Anirudh Brooks on 10-25-2023 Clarity (U) Clear Clear [facility] Urine color determinationOrd ered By: Garrett Brooks on 10-25-2023 Color (U) Yellow Yellow [facility] Urine glucose detectionOrder ed By: Garrett Brooks on 10-25-2023 Glucose Ql (U) Normal mg/dl Normal [facility] Urine leukocyte esterase det ection by dipstickOrdered By: Garrett Brooks on 10-25-2023 Leukocyte esterase Test strip Ql (U) Negative Negative [facility] Urine pHOrdered By: Garrett montano on 10-25-2023 pH (U) 7.0 [pH] 5.0 - 8.0 [facility] Urine sediment bacteria coun t by microscopy (number/high power field)Ordered By: Garrett Brooks on 10-25-2023 Bacteria LM.HPF (Urine sed) [#/Area] 0 /[HPF] None Seen [facility] Urine specific gravity measu rementOrdered By: Garrett Brooks on 10-25-2023 Specific gravity (U) [Rel density] 1.015 1.002-1.030 [facility] Urobilinogen Auto test strip Ql (U)Ordered By: Garrett Brooks on 10-25-2023 Urobilinogen Ql (U) Normal mg/dl Normal [facility] Absolute lymphocyte countOrd ered By: Agustín Estrada on 09-05-2023 Lymphocytes Auto (Unsp spec) [#/Vol] 3.03 10*3/uL 0.83-4.51 [facility] Basophil percentageOrdered B y: Agustín Estrada on 09-05-2023 Basophil percentage 0-5 SEEN /hpf 0-5 [facility] Basophils/100 WBC (Bld) 0.7 % 0-1 [facility] Bilirubin [Mass/Vol] 0.60 mg/dL 0.20-1.00 [facility] Comment on above: For patients on eltr ombopag therapy, use of Dimension [place] TBIL is not recommended. Chloride [Moles/Vol] 109 mmol/L 98-107 [facility] Eosinophils/100 WBC (Bld) 0.0 % 0-5 [facility] Glucose [Mass/Vol] 102 mg/dL 74-106 [facility] Comment on above: Fasting Glucose resu lt from 100 to 125 mg/dL suggests IMPAIRED HOMEOSTASIS per A.D.A. criteria. Neutrophils (Bld) [#/Vol] 5.1 10*3/uL 2.0-7.7 [facility] Neutrophils/100 WBC (Bld) 58.4 % 47-70 [facility] Potassium [Moles/Vol] 3.8 mmol/L 3.5-5.1 [facility] Protein [Mass/Vol] 7.7 g/dL 6.4-8.2 [facility] Sodium [Moles/Vol] 138 mmol/L 136-145 [facility] WBC (Bld) [#/Vol] 8.7 10*3/uL 4.4-11.0 [facility] Beta hCG serum qualOrdered B y: Agustín Estrada on 09-05-2023 Beta HCG ( test) Ql Negative [facility] Bilirubin Test strip Ql (U)O rdered By: Agustín Estrada on 09-05-2023 Bilirubin Ql (U) Negative Negative [facility] Blood erythrocytes count (nu mber/volume)Ordered By: Agustín Estrada on 09-05-2023 RBC (Bld) [#/Vol] 4.61 10*6/uL 4.2-5.4 [facility] Blood hemoglobin measurement (mass/volume)Ordered By: Agustín Estrada on 09-05-2023 Hemoglobin (Bld) [Mass/Vol] 12.7 g/dL 12.0-15.0 [facility] Blood lymphocytes/100 leukoc ytesOrdered By: Agustín Estrada on 09-05-2023 Lymphocytes/100 WBC (Bld) 34.9 % 19-41 [facility] Blood monocytes/100 leukocyt esOrdered By: Agustín Estrada on 09-05-2023 Monocytes/100 WBC (Bld) 5.7 % 0-10 [facility] Blood platelet mean volumeOr dered By: Agustín Estrada on 09-05-2023 Platelet mean volume (Bld) [Entitic vol] 9.6 fL 6.2-12.0 [facility] Determination of erythrocyte mean corpuscular volume (MCV)Ordered By: Agustín Estrada on 09-05-2023 MCV (RBC) [Entitic vol] 87.6 fL 81-99 [facility] Hematocrit Auto (Bld) [Volum e fraction]Ordered By: Agustín Estrada on 09-05-2023 Hematocrit (Bld) [Volume fraction] 40.4 % 37-47 [facility] Ketones Test strip Ql (U)Ord ered By: Agustín Estrada on 09-05-2023 Ketones Ql (U) Negative Negative [facility] - Chemistry and C hemistry - challengeOrdered By: Agustín Estrada on 09-05-2023 ALP [Catalytic activity/Vol] 77 U/L 45-117 [facility] ALT [Catalytic activity/Vol] 21 U/L 13-56 [facility] CO2 [Moles/Vol] 24.0 mmol/L 21.0-32.0 [facility] Globulin (S) [Mass/Vol] 4.2 g/dL 2.2-4.2 [facility] Lipase [Catalytic activity/Vol] 22 U/L 13-75 [facility] Comment on above: Please note:LIPASE r evised reference range effective 23. New Lipase methodology. Expected to produce lower values than the previous assay method. NEW Reference Range: 13 - 75 U/L Urea nitrogen/Creatinine [Mass ratio] 10.4 mg/mg 10-20 [facility] - Hematology and Cell countsOrdered By: Agustín Estrada on 09-05-2023 Erythrocyte distribution width (RBC) [Entitic vol] 42.2 fL 35.1-43.9 [facility] Erythrocyte distribution width (RBC) [Ratio] 13.2 % 11.6-14.6 [facility] Immature granulocytes/100 WBC (Bld) 0.300 % 0.0-0.9 [facility] Comment on above: IG% - Immature Granu locytes (promyelocytes, myelocytes and metamyelocytes) > 1% indicates that a LEFT SHIFT is Present. MCH (RBC) [Entitic mass] 27.5 pg 27.0-32.0 [facility] Nucleated RBC/100 WBC (Bld) [Ratio] 0 % 0-5 [facility] MCHC Auto (RBC) [Mass/Vol]Or dered By: Agustín Estrada on 09-05-2023 MCHC (RBC) [Mass/Vol] 31.4 g/dL 32-36 [facility] Mucus LM Ql (Urine sed)Order ed By: Agustín Estrada on 09-05-2023 Mucus Ql (Urine sed) 0 SEEN /hpf [facility] Nitrite Test strip Ql (U)Ord ered By: Agustín Estrada on 09-05-2023 Nitrite Ql (U) Negative Negative [facility] No Panel InformationOrdered By: Agustín Estrada on 09-05-2023 Urine Transitional Epithelial Cells 0-5 SEEN /hpf 0-5 [facility] Estimated Creatinine Clearance Calc 79.59 ml/min [facility] Estimated GFR (MDRD) Amer 96 mL/min >60 [facility] Comment on above: GFR Calc Estimated GFR (MDRD) Non-Af Amer 80 mL/min >60 [facility] Comment on above: Non- GFR Calc Platelets bldOrdered By: Austyn Estrada on 09-05-2023 Platelets (Bld) [#/Vol] 296 10*3/uL 150-450 [facility] Protein Test strip Ql (U)Ord ered By: Agustín Estrada on 09-05-2023 Protein Ql (U) 15 mg/dl Negative [facility] Serum or plasma albumin omega urement (mass/volume)Ordered By: Agustín Estrada on 09-05-2023 Albumin [Mass/Vol] 3.5 g/dL 3.2-5.0 [facility] Serum or plasma albumin/glob ulin mass ratioOrdered By: Agustín Estrada on 09-05-2023 Albumin/Globulin [Mass ratio] 0.8 {ratio} 0.9-2.4 [facility] Serum or plasma calcium omega urement (mass/volume)Ordered By: Agustín Estrada on 09-05-2023 Calcium [Mass/Vol] 9.0 mg/dL 8.5-10.1 [facility] Serum or plasma creatinine m easurement (mass/volume)Ordered By: Agustín Estrada on 09-05-2023 Creatinine [Mass/Vol] 0.86 mg/dL 0.55-1.02 [facility] Comment on above: The validity of the calculated GFR & GFRAA in patients over 70 years has not been determined. Clinical correlation is essential. Serum or plasma urea nitroge n measurement (mass/volume)Ordered By: Agustín Estrada on 09-05-2023 Urea nitrogen [Mass/Vol] 9 mg/dL 7-18 [facility] Squamous epithelial cells de tection in urine sediment by light microscopyOrdered By: Agustín Estrada on 09-05-2023 Epithelial cells.squamous LM Ql (Urine sed) 0-5 SEEN /hpf 5-10 [facility] Thin prep Papanicolaou smear with manual screeningOrdered By: Agustín Estrada on 09-05-2023 Thin prep Papanicolaou smear with manual screening 15 U/L 15-37 [facility] Thin prep Papanicolaou smear with manual screening 5 5-15 [facility] Urine blood detectionOrdered By: Agustín Estrada on 09-05-2023 RBC Ql (U) Negative Negative [facility] RBC Ql (U) 0 SEEN /hpf 0-5 [facility] Urine clarityOrdered By: Austyn Estrada on 09-05-2023 Clarity (U) Clear Clear [facility] Urine color determinationOrd ered By: Agustín Estrada on 09-05-2023 Color (U) Yellow Yellow [facility] Urine glucose detectionOrder ed By: Agustín Estrada on 09-05-2023 Glucose Ql (U) Normal mg/dl Normal [facility] Urine leukocyte esterase det ection by dipstickOrdered By: Agustín Estrada on 09-05-2023 Leukocyte esterase Test strip Ql (U) 25 /ul Negative [facility] Urine pHOrdered By: Agustín Drew ghcain on 09-05-2023 pH (U) 6.0 [pH] 5.0 - 8.0 [facility] Urine sediment bacteria coun t by microscopy (number/high power field)Ordered By: Agustín Estrada on 09-05-2023 Bacteria LM.HPF (Urine sed) [#/Area] 0 /[HPF] None Seen [facility] Urine specific gravity measu rementOrdered By: Agustín Estrada on 09-05-2023 Specific gravity (U) [Rel density] 1.010 1.002-1.030 [facility] Urobilinogen Auto test strip Ql (U)Ordered By: Agustín Estrada on 09-05-2023 Urobilinogen Ql (U) Normal mg/dl Normal [facility] ALLIED HEALTHon 06-07-2023 ALLIED HEALTH HNO ID: [id number] Author: Belkis Hogan RT(Nain) Service: ? Author Type: Study Assistant Type: Allied Health Filed: 06/06/2023 10:13 PM [...] PERIPHERAL IV DATA: Not applicable SIGNED BY: Belkis Hogan, RT(R) June 06, 2023 10:13 PM [facility] ECG COMPLETEon 06-07-2023 ECG COMPLETE Ventricular Rate : 6 5 BPM Atrial Rate : 65 BPM P-R Interval : 126 ms QRS Duration : 100 ms Q-T Interval : 428 ms QTC Calculation(Bazett) : 445 ms Calculated P [place] : 52 degrees Calculated R [place] : 36 degrees Calculated T [place] : 30 degrees SINUS RHYTHM WITH MARKED SINUS ARRHYTHMIA OTHERWISE NORMAL ECG NO PREVIOUS ECGS AVAILABLE Confirmed by MD BERMEO VINAYAK ([id number]) on 06/07/2023 9:40:19 AM NAME : DAYNA TINSLEY PID : [id number] : 1990 Gender : Female Race : ORD : [id number] Procedure Date : Jun 06 2023 22:12:30 Edit Date : Jun 07 2023 09:40:23 Diagnosis: SINUS RHYTHM WITH MARKED SINUS ARRHYTHMIA OTHERWISE NORMAL ECG NO PREVIOUS ECGS AVAILABLE Confirmed by MD BERMEO VINAYAK ([id number]) on 06/07/2023 9:40:19 AM Test Reason : Chest Pain Location : 150 : [facility] Overread By : MD BERMEO VINAYAK Edited By : MD BERMEO VINAYAK Referred By : , Acquired by : LAUREN CALIX [facility] ED NOTEon 06-07-2023 ED NOTE HNO ID: [id number] Author: Vania Hansen, DOUG Service: Emergency Medicine Author Type: Registered Nurse Type: ED Notes Filed: 06/06/2023 11:05 PM Note Text: Patient is AANDO, wdp, resps unlabored, relaxed facial expression and posture. Does not appear to be in any distress. Dc instr to fu w pmd, return prn, verb und. Ambulates from ER [facility] ED NOTE HNO ID: [id number] Author: Yeny Kay, DOUG Service: Emergency Medicine Author Type: Registered Nurse Type: ED Notes Filed: 06/06/2023 10:30 PM Note Text: Pt refuses zofran. Physician updated. 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 States that when she took out the trash 3 days ago something splashed her arm and she is concerned that it is exposing her to toxins. She states that she has had temperature problems as well as tingling sensation in her right arm since. Was actually seen and evaluated at [facility] for this yesterday. They recommended outpatient [...] Morbid obesity with BMI of 45.0-49.9, adult ([facility]) Personal history of unspecified urinary disorder Thoracic or lumbosacral neuritis or radiculitis, unspecified PAST SURGICAL HISTORY Procedure Laterality Date CHOLECYSTECTOMY 2004 COLECTOMY PARTIAL W ANASTOM 2004 for crohns COLONOSCOPY 12/2011, 06/2014 PAST SURGICAL HISTORY OF ear tubes numerous times PAST SURGICAL HISTORY OF 2012 caudal epidural steroid injection ([facility]ney) SUCTION D AND C 2010 FAMILY HISTORY [...] cerebellar testing with finger to nose or [id number] exam. Patient with even steady gait in the emergency room. Diagnostic Testing ED Labs Ordered and Reviewed - No data to display Procedures ED Course / Clinical Impression ED Course as of 06/06/232320 Jennifer Zaidi's Documentation SunJun 06, 2023 223 Triage EKG obtained and reviewed by myself. Sinus rhythm noted with sinus arrhythmia. Ventricular to 65 bpm. No (more content not included)... Normal [facility] XR CHEST 2V FRONTAL/LATon XR CHEST 2V [...] significant acute radiographic abnormality of the chest. Tar Heater: PSCB Transcribe Date/Time: Jun 06 2023 10:38P Dictated by : RANJAN ANGEL MD This examination was interpreted and the report reviewed and electronically signed by: RANJAN ANGEL MD on Jun 06 2023 10:39PM EST [id number] Normal [facility] ED NOTEon 06-06-2023 ED NOTE HNO ID: [id number] Author: Deborah Ornelas, RN Service: Nursing Author Type: Registered Nurse Type: ED Notes Filed: 06/06/2023 9:21 PM Note Text: Pt states she was at work ([email or web address]) and was splashed by unknown substance of biohazard waste on R forearm. Pt reports she been having chest pain and thinks her R arm is swollen. Pt states I've been sick non-stop back to back for three weeks pt also reports back pain and fevers for three weeks Normal [facility] Absolute lymphocyte countOrd ered By: Major Mejia on 06-05-2023 Lymphocytes Auto (Unsp spec) [#/Vol] 3.02 10*3/uL 0.83-4.51 [facility] Basophil percentageOrdered B y: Major Mejia on 06-05-2023 Basophils/100 WBC (Bld) 0.5 % 0-1 [facility] Chloride [Moles/Vol] 110 mmol/L 98-107 [facility] Eosinophils/100 WBC (Bld) 0.1 % 0-5 [facility] Glucose [Mass/Vol] 96 mg/dL 74-106 [facility] Lactate [Moles/Vol] 0.4 mmol/L 0.4-2.0 [facility] Neutrophils (Bld) [#/Vol] 6.5 10*3/uL 2.0-7.7 [facility] Neutrophils/100 WBC (Bld) 64.4 % 47-70 [facility] Potassium [Moles/Vol] 5.0 mmol/L 3.5-5.1 [facility] Comment on above: Moderate Hemolysis, Result may be falsely increased. Sodium [Moles/Vol] 136 mmol/L 136-145 [facility] WBC (Bld) [#/Vol] 10.1 10*3/uL 4.4-11.0 [facility] Blood erythrocytes count (nu mber/volume)Ordered By: Major Mejia on 06-05-2023 RBC (Bld) [#/Vol] 4.48 10*6/uL 4.2-5.4 [facility] Blood hemoglobin measurement (mass/volume)Ordered By: Major Mejia on 06-05-2023 Hemoglobin (Bld) [Mass/Vol] 12.3 g/dL 12.0-15.0 [facility] Blood lymphocytes/100 leukoc ytesOrdered By: Major Mejia on 06-05-2023 Lymphocytes/100 WBC (Bld) 29.9 % 19-41 [facility] Blood monocytes/100 leukocyt esOrdered By: Major Mejia on 06-05-2023 Monocytes/100 WBC (Bld) 4.8 % 0-10 [facility] Blood platelet mean volumeOr dered By: Major Mejia on 06-05-2023 Platelet mean volume (Bld) [Entitic vol] 10.2 fL 6.2-12.0 [facility] Determination of erythrocyte mean corpuscular volume (MCV)Ordered By: Major Mejia on 06-05-2023 MCV (RBC) [Entitic vol] 85.0 fL 81-99 [facility] Hematocrit Auto (Bld) [Volum e fraction]Ordered By: Major Mejia on 06-05-2023 Hematocrit (Bld) [Volume fraction] 38.1 % 37-47 [facility] - Chemistry and C hemistry - challengeOrdered By: Major Mejia on 06-05-2023 CO2 [Moles/Vol] 22.0 mmol/L 21.0-32.0 [facility] Magnesium [Mass/Vol] 2.0 mg/dL 1.6-2.6 [facility] Comment on above: Moderate Hemolysis, Result may be falsely increased. Urea nitrogen/Creatinine [Mass ratio] 4.2 mg/mg 10-20 [facility] - Hematology and Cell countsOrdered By: Major Mejia on 06-05-2023 Erythrocyte distribution width (RBC) [Entitic vol] 43.1 fL 35.1-43.9 [facility] Erythrocyte distribution width (RBC) [Ratio] 13.9 % 11.6-14.6 [facility] Immature granulocytes/100 WBC (Bld) 0.300 % 0.0-0.9 [facility] Comment on above: IG% - Immature Granu locytes (promyelocytes, myelocytes and metamyelocytes) > 1% indicates that a LEFT SHIFT is Present. MCH (RBC) [Entitic mass] 27.5 pg 27.0-32.0 [facility] Nucleated RBC/100 WBC (Bld) [Ratio] 0 % 0-5 [facility] MCHC Auto (RBC) [Mass/Vol]Or dered By: Major Mejia on 06-05-2023 MCHC (RBC) [Mass/Vol] 32.3 g/dL 32-36 [facility] No Panel InformationOrdered By: Major Mejia on 06-05-2023 Estimated Creatinine Clearance Calc 96.41 ml/min [facility] Estimated GFR (MDRD) Amer 120 mL/min >60 [facility] Comment on above: GFR Calc Estimated GFR (MDRD) Non-Af Amer 99 mL/min >60 [facility] Comment on above: Non- GFR Calc Troponin I High Sensitivity 3 pg/mL 3.0-54.0 [facility] Comment on above: Please Note: [place] t Units and Gender Specific Reference Ranges. For more information see Policy Stat Procedure [place] High Sensitivity Troponin (TNIH) and attachments. Platelets bldOrdered By: Johnson Mejia on 06-05-2023 Platelets (Bld) [#/Vol] 243 10*3/uL 150-450 [facility] Serum or plasma calcium omega urement (mass/volume)Ordered By: Major Mejia on 06-05-2023 Calcium [Mass/Vol] 8.3 mg/dL 8.5-10.1 [facility] Serum or plasma creatinine m easurement (mass/volume)Ordered By: Major Mejia on 06-05-2023 Creatinine [Mass/Vol] 0.71 mg/dL 0.55-1.02 [facility] Comment on above: The validity of the calculated GFR & GFRAA in patients over 70 years has not been determined. Clinical correlation is essential. Serum or plasma urea nitroge n measurement (mass/volume)Ordered By: Major Mejia on 06-05-2023 Urea nitrogen [Mass/Vol] 3 mg/dL 7-18 [facility] Thin prep Papanicolaou smear with manual screeningOrdered By: Major Mejia on 06-05-2023 Thin prep Papanicolaou smear with manual screening 4 5-15 [facility] Basophil percentageOrdered B y: Harriet Chirinos on 05-17-2023 Chloride [Moles/Vol] 106 mmol/L 98-107 [facility] Glucose [Mass/Vol] 88 mg/dL 74-106 [facility] Potassium [Moles/Vol] 3.6 mmol/L 3.5-5.1 [facility] Comment on above: Slight Hemolysis, Re sult may be falsely increased. Sodium [Moles/Vol] 138 mmol/L 136-145 [facility] Influenza virus A and B and SARS-CoV-2 (COVID-19) Ag panel - Upper respiratory specimOrdered By: Harriet Chirinos on 05-17-2023 SARS-CoV-2 (COVID-19) RNA JYOTI+probe Ql (Resp) [facility] - Chemistry and C hemistry - challengeOrdered By: Harriet Chirinos on 05-17-2023 CO2 [Moles/Vol] 24.0 mmol/L 21.0-32.0 [facility] Urea nitrogen/Creatinine [Mass ratio] 12.3 mg/mg 10-20 [facility] No Panel InformationOrdered By: Harriet Chirinos on 05-17-2023 Estimated Creatinine Clearance Calc 76.91 ml/min [facility] Estimated GFR (MDRD) Amer 93 mL/min >60 [facility] Comment on above: GFR Calc Estimated GFR (MDRD) Non-Af Amer 77 mL/min >60 [facility] Comment on above: Non- GFR Calc Serum or plasma calcium omega urement (mass/volume)Ordered By: Harriet Chirinos on 05-17-2023 Calcium [Mass/Vol] 8.9 mg/dL 8.5-10.1 [facility] Serum or plasma creatinine m easurement (mass/volume)Ordered By: Harriet Chirinos on 05-17-2023 Creatinine [Mass/Vol] 0.89 mg/dL 0.55-1.02 [facility] Comment on above: The validity of the calculated GFR & GFRAA in patients over 70 years has not been determined. Clinical correlation is essential. Serum or plasma urea nitroge n measurement (mass/volume)Ordered By: Harriet Chirinos on 05-17-2023 Urea nitrogen [Mass/Vol] 11 mg/dL 7-18 [facility] Thin prep Papanicolaou smear with manual screeningOrdered By: Harriet Chirinos on 05-17-2023 Thin prep Papanicolaou smear with manual screening 8 5-15 [facility] Absolute lymphocyte countOrd ered By: Dr. Brooks on 01-21-2023 Lymphocytes Auto (Unsp spec) [#/Vol] 2.86 10*3/uL 0.83-4.51 [facility] Basophil percentageOrdered B y: Dr. Brooks on 01-21-2023 Basophil percentage 0 SEEN /hpf 0-5 [facility] Basophils/100 WBC (Bld) 0.4 % 0-1 [facility] Eosinophils/100 WBC (Bld) 0.1 % 0-5 [facility] Neutrophils (Bld) [#/Vol] 7.7 10*3/uL 2.0-7.7 [facility] Neutrophils/100 WBC (Bld) 69.2 % 47-70 [facility] WBC (Bld) [#/Vol] 11.1 10*3/uL 4.4-11.0 [facility] Bilirubin [Mass/Vol] 0.90 mg/dL 0.20-1.00 [facility] Comment on above: For patients on eltr ombopag therapy, use of Dimension [place] TBIL is not recommended. Chloride [Moles/Vol] 108 mmol/L 98-107 [facility] Glucose [Mass/Vol] 114 mg/dL 74-106 [facility] Comment on above: Fasting Glucose resu lt from 100 to 125 mg/dL suggests IMPAIRED HOMEOSTASIS per A.D.A. criteria. Potassium [Moles/Vol] 3.8 mmol/L 3.5-5.1 [facility] Protein [Mass/Vol] 7.7 g/dL 6.4-8.2 [facility] Sodium [Moles/Vol] 139 mmol/L 136-145 [facility] Beta hCG serum qualOrdered B y: Dr. Brooks on 01-21-2023 Beta HCG ( test) Ql Negative [facility] Bilirubin Test strip Ql (U)O rdered By: Dr. Brooks on 01-21-2023 Bilirubin Ql (U) Negative Negative [facility] Blood erythrocytes count (nu mber/volume)Ordered By: Dr. Brooks on 01-21-2023 RBC (Bld) [#/Vol] 4.99 10*6/uL 4.2-5.4 [facility] Blood hemoglobin measurement (mass/volume)Ordered By: Dr. Brooks on 01-21-2023 Hemoglobin (Bld) [Mass/Vol] 13.0 g/dL 12.0-15.0 [facility] Blood lymphocytes/100 leukoc ytesOrdered By: Dr. Brooks on 01-21-2023 Lymphocytes/100 WBC (Bld) 25.7 % 19-41 [facility] Blood monocytes/100 leukocyt esOrdered By: Dr. Brooks on 01-21-2023 Monocytes/100 WBC (Bld) 4.3 % 0-10 [facility] Blood platelet mean volumeOr dered By: Dr. Brooks on 01-21-2023 Platelet mean volume (Bld) [Entitic vol] 10.8 fL 6.2-12.0 [facility] Determination of erythrocyte mean corpuscular volume (MCV)Ordered By: Dr. Brooks on 01-21-2023 MCV (RBC) [Entitic vol] 82.6 fL 81-99 [facility] Hematocrit Auto (Bld) [Volum e fraction]Ordered By: Dr. Brooks on 01-21-2023 Hematocrit (Bld) [Volume fraction] 41.2 % 37-47 [facility] Ketones Test strip Ql (U)Ord ered By: Dr. Brooks on 01-21-2023 Ketones Ql (U) Negative Negative [facility] - Chemistry and C hemistry - challengeOrdered By: Dr. Brooks on 01-21-2023 ALP [Catalytic activity/Vol] 74 U/L 45-117 [facility] ALT [Catalytic activity/Vol] 15 U/L 13-56 [facility] CO2 [Moles/Vol] 24.0 mmol/L 21.0-32.0 [facility] Globulin (S) [Mass/Vol] 4.3 g/dL 2.2-4.2 [facility] Lipase [Catalytic activity/Vol] 57 U/L 73-393 [facility] Urea nitrogen/Creatinine [Mass ratio] 8.5 mg/mg 10-20 [facility] - Hematology and Cell countsOrdered By: Dr. Brooks on 01-21-2023 Erythrocyte distribution width (RBC) [Entitic vol] 43.9 fL 35.1-43.9 [facility] Erythrocyte distribution width (RBC) [Ratio] 14.7 % 11.6-14.6 [facility] Immature granulocytes/100 WBC (Bld) 0.300 % 0.0-0.9 [facility] Comment on above: IG% - Immature Granu locytes (promyelocytes, myelocytes and metamyelocytes) > 1% indicates that a LEFT SHIFT is Present. MCH (RBC) [Entitic mass] 26.1 pg 27.0-32.0 [facility] Nucleated RBC/100 WBC (Bld) [Ratio] 0 % 0-5 [facility] MCHC Auto (RBC) [Mass/Vol]Or dered By: Dr. Brooks on 01-21-2023 MCHC (RBC) [Mass/Vol] 31.6 g/dL 32-36 [facility] Mucus LM Ql (Urine sed)Order ed By: Dr. Brooks on 01-21-2023 Mucus Ql (Urine sed) 0 SEEN /hpf [facility] Nitrite Test strip Ql (U)Ord ered By: Dr. Brooks on 01-21-2023 Nitrite Ql (U) Negative Negative [facility] No Panel InformationOrdered By: Dr. Brooks on 01-21-2023 Estimated Creatinine Clearance Calc 64.58 ml/min [facility] Estimated GFR (MDRD) Amer 76 mL/min >60 [facility] Comment on above: GFR Calc Estimated GFR (MDRD) Non-Af Amer 63 mL/min >60 [facility] Comment on above: Non- GFR Calc Platelets bldOrdered By: Dr. Brooks on 01-21-2023 Platelets (Bld) [#/Vol] 282 10*3/uL 150-450 [facility] Protein Test strip Ql (U)Ord ered By: Dr. Brooks on 01-21-2023 Protein Ql (U) Negative Negative [facility] Serum or plasma albumin omega urement (mass/volume)Ordered By: Dr. Brooks on 01-21-2023 Albumin [Mass/Vol] 3.4 g/dL 3.2-5.0 [facility] Serum or plasma albumin/glob ulin mass ratioOrdered By: Dr. Brooks on 01-21-2023 Albumin/Globulin [Mass ratio] 0.8 {ratio} 0.9-2.4 [facility] Serum or plasma calcium omega urement (mass/volume)Ordered By: Dr. Brooks on 01-21-2023 Calcium [Mass/Vol] 8.9 mg/dL 8.5-10.1 [facility] Serum or plasma creatinine m easurement (mass/volume)Ordered By: Dr. Brooks on 01-21-2023 Creatinine [Mass/Vol] 1.06 mg/dL 0.55-1.02 [facility] Comment on above: The validity of the calculated GFR & GFRAA in patients over 70 years has not been determined. Clinical correlation is essential. Serum or plasma urea nitroge n measurement (mass/volume)Ordered By: Dr. Brooks on 01-21-2023 Urea nitrogen [Mass/Vol] 9 mg/dL 7-18 [facility] Squamous epithelial cells de tection in urine sediment by light microscopyOrdered By: Dr. Brooks on 01-21-2023 Epithelial cells.squamous LM Ql (Urine sed) 0-5 SEEN /hpf 5-10 [facility] Thin prep Papanicolaou smear with manual screeningOrdered By: Dr. Brooks on 01-21-2023 Thin prep Papanicolaou smear with manual screening 12 U/L 15-37 [facility] Thin prep Papanicolaou smear with manual screening 7 5-15 [facility] Urine blood detectionOrdered By: Dr. Brooks on 01-21-2023 RBC Ql (U) Negative Negative [facility] RBC Ql (U) 0 SEEN /hpf 0-5 [facility] Urine clarityOrdered By: Dr. Brooks on 01-21-2023 Clarity (U) Clear Clear [facility] Urine color determinationOrd ered By: Dr. Brooks on 01-21-2023 Color (U) Straw Yellow [facility] Urine glucose detectionOrder ed By: Dr. Brooks on 01-21-2023 Glucose Ql (U) Normal mg/dl Normal [facility] Urine leukocyte esterase det ection by dipstickOrdered By: Dr. Brooks on 01-21-2023 Leukocyte esterase Test strip Ql (U) Negative Negative [facility] Urine pHOrdered By: Dr. Joey neumann on 01-21-2023 pH (U) 6.5 [pH] 5.0 - 8.0 [facility] Urine sediment bacteria coun t by microscopy (number/high power field)Ordered By: Dr. Brooks on 01-21-2023 Bacteria LM.HPF (Urine sed) [#/Area] 0 /[HPF] None Seen [facility] Urine specific gravity measu rementOrdered By: Dr. Brooks on 01-21-2023 Specific gravity (U) [Rel density] 1.010 1.002-1.030 [facility] Urobilinogen Auto test strip Ql (U)Ordered By: Dr. Brooks on 01-21-2023 Urobilinogen Ql (U) Normal mg/dl Normal [facility] Absolute lymphocyte countOrd ered By: Dr. Taylor on 12-14-2022 Lymphocytes Auto (Unsp spec) [#/Vol] 2.92 10*3/uL 0.83-4.51 [facility] Basophil percentageOrdered B y: Dr. Taylor on 12-14-2022 Basophil percentage 0 SEEN /hpf 0-5 [facility] Basophils/100 WBC (Bld) 0.6 % 0-1 [facility] Bilirubin [Mass/Vol] 0.80 mg/dL 0.20-1.00 [facility] Comment on above: For patients on eltr ombopag therapy, use of Dimension [place] TBIL is not recommended. Chloride [Moles/Vol] 108 mmol/L 98-107 [facility] Eosinophils/100 WBC (Bld) 0.1 % 0-5 [facility] Glucose [Mass/Vol] 98 mg/dL 74-106 [facility] Neutrophils (Bld) [#/Vol] 4.4 10*3/uL 2.0-7.7 [facility] Neutrophils/100 WBC (Bld) 56.1 % 47-70 [facility] Potassium [Moles/Vol] 2.9 mmol/L 3.5-5.1 [facility] Protein [Mass/Vol] 7.5 g/dL 6.4-8.2 [facility] Sodium [Moles/Vol] 142 mmol/L 136-145 [facility] WBC (Bld) [#/Vol] 7.8 10*3/uL 4.4-11.0 [facility] Beta hCG serum qualOrdered B y: Dr. Taylor on 12-14-2022 Beta HCG ( test) Ql Negative [facility] Bilirubin Test strip Ql (U)O rdered By: Dr. Taylor on 12-14-2022 Bilirubin Ql (U) Negative Negative [facility] Blood erythrocytes count (nu mber/volume)Ordered By: Dr. Taylor on 12-14-2022 RBC (Bld) [#/Vol] 4.58 10*6/uL 4.2-5.4 [facility] Blood hemoglobin measurement (mass/volume)Ordered By: Dr. Taylor on 12-14-2022 Hemoglobin (Bld) [Mass/Vol] 11.8 g/dL 12.0-15.0 [facility] Blood lymphocytes/100 leukoc ytesOrdered By: Dr. Tayolr on 12-14-2022 Lymphocytes/100 WBC (Bld) 37.2 % 19-41 [facility] Blood monocytes/100 leukocyt esOrdered By: Dr. Taylor on 12-14-2022 Monocytes/100 WBC (Bld) 5.7 % 0-10 [facility] Blood platelet mean volumeOr dered By: Dr. Taylor on 12-14-2022 Platelet mean volume (Bld) [Entitic vol] 10.2 fL 6.2-12.0 [facility] Determination of erythrocyte mean corpuscular volume (MCV)Ordered By: Dr. Taylor on 12-14-2022 MCV (RBC) [Entitic vol] 81.0 fL 81-99 [facility] Hematocrit Auto (Bld) [Volum e fraction]Ordered By: Dr. Taylor on 12-14-2022 Hematocrit (Bld) [Volume fraction] 37.1 % 37-47 [facility] Ketones Test strip Ql (U)Ord ered By: Dr. Taylor on 12-14-2022 Ketones Ql (U) Negative Negative [facility] - Chemistry and C hemistry - challengeOrdered By: Dr. Taylor on 12-14-2022 ALP [Catalytic activity/Vol] 65 U/L 45-117 [facility] ALT [Catalytic activity/Vol] 17 U/L 13-56 [facility] CO2 [Moles/Vol] 24.0 mmol/L 21.0-32.0 [facility] Globulin (S) [Mass/Vol] 3.8 g/dL 2.2-4.2 [facility] Lipase [Catalytic activity/Vol] 87 U/L 73-393 [facility] Urea nitrogen/Creatinine [Mass ratio] 9.0 mg/mg 10-20 [facility] - Hematology and Cell countsOrdered By: Dr. Taylor on 12-14-2022 Erythrocyte distribution width (RBC) [Entitic vol] 41.3 fL 35.1-43.9 [facility] Erythrocyte distribution width (RBC) [Ratio] 14.1 % 11.6-14.6 [facility] Immature granulocytes/100 WBC (Bld) 0.300 % 0.0-0.9 [facility] Comment on above: IG% - Immature Granu locytes (promyelocytes, myelocytes and metamyelocytes) > 1% indicates that a LEFT SHIFT is Present. MCH (RBC) [Entitic mass] 25.8 pg 27.0-32.0 [facility] Nucleated RBC/100 WBC (Bld) [Ratio] 0 % 0-5 [facility] MCHC Auto (RBC) [Mass/Vol]Or dered By: Dr. Taylor on 12-14-2022 MCHC (RBC) [Mass/Vol] 31.8 g/dL 32-36 [facility] Mucus LM Ql (Urine sed)Order ed By: Dr. Taylor on 12-14-2022 Mucus Ql (Urine sed) 0 SEEN /hpf [facility] Nitrite Test strip Ql (U)Ord ered By: Dr. Taylor on 12-14-2022 Nitrite Ql (U) Negative Negative [facility] No Panel InformationOrdered By: Dr. Taylor on 12-14-2022 Estimated Creatinine Clearance Calc 88.90 ml/min [facility] Estimated GFR (MDRD) Amer 110 mL/min >60 [facility] Comment on above: GFR Calc Estimated GFR (MDRD) Non-Af Amer 91 mL/min >60 [facility] Comment on above: Non- GFR Calc Platelets bldOrdered By: Dr. Taylor on 12-14-2022 Platelets (Bld) [#/Vol] 277 10*3/uL 150-450 [facility] Protein Test strip Ql (U)Ord ered By: Dr. Taylor on 12-14-2022 Protein Ql (U) Negative Negative [facility] Serum or plasma albumin omega urement (mass/volume)Ordered By: Dr. Taylor on 12-14-2022 Albumin [Mass/Vol] 3.7 g/dL 3.2-5.0 [facility] Serum or plasma albumin/glob ulin mass ratioOrdered By: Dr. Taylor on 12-14-2022 Albumin/Globulin [Mass ratio] 1.0 {ratio} 0.9-2.4 [facility] Serum or plasma calcium omega urement (mass/volume)Ordered By: Dr. Taylor on 12-14-2022 Calcium [Mass/Vol] 9.1 mg/dL 8.5-10.1 [facility] Serum or plasma creatinine m easurement (mass/volume)Ordered By: Dr. Taylor on 12-14-2022 Creatinine [Mass/Vol] 0.77 mg/dL 0.55-1.02 [facility] Comment on above: The validity of the calculated GFR & GFRAA in patients over 70 years has not been determined. Clinical correlation is essential. Serum or plasma urea nitroge n measurement (mass/volume)Ordered By: Dr. Taylor on 12-14-2022 Urea nitrogen [Mass/Vol] 7 mg/dL 7-18 [facility] Squamous epithelial cells de tection in urine sediment by light microscopyOrdered By: Dr. Taylro on 12-14-2022 Epithelial cells.squamous LM Ql (Urine sed) 0 SEEN /hpf 5-10 [facility] Thin prep Papanicolaou smear with manual screeningOrdered By: Dr. Taylor on 12-14-2022 Thin prep Papanicolaou smear with manual screening 16 U/L 15-37 [facility] Thin prep Papanicolaou smear with manual screening 10 5-15 [facility] Urine blood detectionOrdered By: Dr. Taylor on 12-14-2022 RBC Ql (U) Negative Negative [facility] RBC Ql (U) 0 SEEN /hpf 0-5 [facility] Urine clarityOrdered By: Dr. Taylor on 12-14-2022 Clarity (U) Clear Clear [facility] Urine color determinationOrd ered By: Dr. Taylor on 12-14-2022 Color (U) Yellow Yellow [facility] Urine glucose detectionOrder ed By: Dr. Taylor on 12-14-2022 Glucose Ql (U) Normal mg/dl Normal [facility] Urine leukocyte esterase det ection by dipstickOrdered By: Dr. Taylor on 12-14-2022 Leukocyte esterase Test strip Ql (U) Negative Negative [facility] Urine pHOrdered By: Dr. Miguel miranda on 12-14-2022 pH (U) 6.5 [pH] 5.0 - 8.0 [facility] Urine sediment bacteria coun t by microscopy (number/high power field)Ordered By: Dr. Taylor on 12-14-2022 Bacteria LM.HPF (Urine sed) [#/Area] 0 /[HPF] None Seen [facility] Urine specific gravity measu rementOrdered By: Dr. Taylor on 12-14-2022 Specific gravity (U) [Rel density] 1.010 1.002-1.030 [facility] Urobilinogen Auto test strip Ql (U)Ordered By: Dr. Taylor on 12-14-2022 Urobilinogen Ql (U) Normal mg/dl Normal [facility] Basic metabolic 2000 panelon 12-03-2022 Anion gap [Moles/Vol] 11 mmol/L Normal 9-18 [facility] Comment on above: Order Comment: Speci men Type: BLOOD SPECIMEN Ordering Facility: [facility] Address: [address] [place] [address] Performed By: #### 2 2, 2157-04 #### [facility] CLIA [id number] [address] [place] [address] [place] Calcium [Mass/Vol] 9.0 mg/dL Normal 8.5-10.2 [facility] Comment on above: Order Comment: Speci men Type: BLOOD SPECIMEN Ordering Facility: [facility] Address: [address] [place] [address] Performed By: #### 2 2, 2157-04 #### [facility] CLIA [id number] [address] [place] [address] [place] Chloride [Moles/Vol] 106 mmol/L High 97-105 [facility] Comment on above: Order Comment: Speci men Type: BLOOD SPECIMEN Ordering Facility: [facility] Address: [address] [address] Performed By: #### 2 4320-2, 2157-04 #### [facility] CLIA [id number] [address] [place] [address] [place] CO2 [Moles/Vol] 21 mmol/L Low 22-30 [facility] Comment on above: Order Comment: Speci men Type: BLOOD SPECIMEN Ordering Facility: [facility] Address: [address] [place] [address] Performed By: #### 2 4321-2, 2157-04 #### [facility] CLIA [id number] [address] [place] [address] [place] Creatinine [Mass/Vol] 0.67 mg/dL Normal 0.58-0.96 [facility] Comment on above: Order Comment: Juana davis Type: BLOOD SPECIMEN Ordering Facility: [facility] Address: [address] [address] Performed By: #### 2 43211-06, 2157-04 #### [facility] CLIA [id number] [address] [place] [address] [facility] [place] ESTIMATED GLOMERULAR FILTRATION RATE 119 mL/min/1.73m??? Normal >=60 [facility] Comment on above: Order Comment: Juana davis Type: BLOOD SPECIMEN Ordering Facility: [facility] Address: [address] [place] [address] Result Comment: Zoya mated Glomerular Filtration Rate [...] reflect actual GFR. Performed By: #### 2 43211-06, 2157-04 #### [facility] CLIA [id number] [address] [place] [address] [place] Glucose [Mass/Vol] 107 mg/dL High 74-99 [facility] Comment on above: Order Comment: Juana davis Type: BLOOD SPECIMEN Ordering Facility: [facility] Address: [address] [place] [address] Result Comment: The [place] [employer] (ADA) provides guidance for cutoff [...] Standards of Medical Care in Diabetes 2016, [place] [employer]. Diabetes Care. 2016.39(Suppl 1). Performed By: #### 2 4320-2, 2157-04 #### [facility] CLIA [id number] [address] [place] [address] [place] Potassium [Moles/Vol] 3.7 mmol/L Normal 3.7-5.1 [facility] Comment on above: Order Comment: Nathanaeli ryan Type: BLOOD SPECIMEN Ordering Facility: [facility] Address: [address] [place] [address] Performed By: #### 2 4320-12, 2157-04 #### [facility] CLIA [id number] [address] STATES [facility] Sodium [Moles/Vol] 138 mmol/L Normal 136-144 [facility] Comment on above: Order Comment: Juana davis Type: BLOOD SPECIMEN Ordering Facility: [facility] Address: [address] [place] [address] Performed By: #### 2 4320-12, 2157-04 #### [facility] CLIA [id number] [address] [place] [address] [place] [facility] Urea nitrogen [Mass/Vol] 7 mg/dL Normal 7-21 [facility] Comment on above: Order Comment: Speci men Type: BLOOD SPECIMEN Ordering Facility: [facility] Address: [address] [place] [address] Performed By: #### 2 4320-12, 2157-04 #### [facility] CLIA [id number] [address] [place] CBC W Auto Differential pane l (Bld)on 12-03-2022 Basophils (Bld) [#/Vol] 10*3/uL Normal <0.11 [facility] Comment on above: Order Comment: Speci men Type: BLOOD SPECIMEN Ordering Facility: [facility] Address: [address] [place] [address] Performed By: #### 5 7021-8 #### [facility] CLIA [id number] [address] [place] Basophils/100 WBC (Bld) 0.3 % Normal [facility] Comment on above: Order Comment: Speci men Type: BLOOD SPECIMEN Ordering Facility: [facility] Address: [address] [place] [address] Performed By: #### 5 7021-8 #### [facility] CLIA [id number] [address] [place] Differential cell count method Nom (Bld) Auto Normal [facility] Comment on above: Order Comment: Speci men Type: BLOOD SPECIMEN Ordering Facility: [facility] Address: [address] [place] [address] Performed By: #### 5 7021-8 #### [facility] CLIA [id number] [address] [place] [address] [place] Eosinophils (Bld) [#/Vol] 10*3/uL Normal <0.46 [facility] Comment on above: Order Comment: Speci men Type: BLOOD SPECIMEN Ordering Facility: [facility] Address: [address] [place] [address] Performed By: #### 5 7021-8 #### [facility] CLIA [id number] [address] [place] Eosinophils/100 WBC (Bld) 0.0 % Normal [facility] Comment on above: Order Comment: Speci men Type: BLOOD SPECIMEN Ordering Facility: [facility] Address: [address] [place] [address] Performed By: #### 5 7021-8 #### [facility] CLIA [id number] [address] [place] [address] [place] Erythrocyte distribution width (RBC) [Ratio] 13.9 % Normal 11.5-15.0 [facility] Comment on above: Order Comment: Speci men Type: BLOOD SPECIMEN Ordering Facility: [facility] Address: [address] [place] [address] Performed By: #### 5 7021-8 #### [facility] CLIA [id number] [address] [place], [place] [address] [place] [address] [place] Hematocrit (Bld) [Volume fraction] 36.7 % Normal 36.0-46.0 [facility] Comment on above: Order Comment: Speci men Type: BLOOD SPECIMEN Ordering Facility: [facility] Address: [address] [place] [address] Performed By: #### 5 7021-8 #### [facility] CLIA [id number] [address] [place] [address] [place] Hemoglobin (Bld) [Mass/Vol] 11.7 g/dL Normal 11.5-15.5 [facility] Comment on above: Order Comment: Speci men Type: BLOOD SPECIMEN Ordering Facility: [facility] Address: [address] [place] [address] Performed By: #### 5 7021-8 #### [facility] CLIA [id number] [address] [place] Immature granulocytes (Bld) [#/Vol] 10*3/uL Normal <0.10 [facility] Comment on above: Order Comment: Speci men Type: BLOOD SPECIMEN Ordering Facility: [facility] Address: [address] [place] [address] Performed By: #### 5 7021-8 #### [facility] CLIA [id number] [address] [place] Immature granulocytes/100 WBC (Bld) 0.1 % Normal [facility] Comment on above: Order Comment: Speci men Type: BLOOD SPECIMEN Ordering Facility: [facility] Address: [address] [place] [address] Performed By: #### 5 7021-8 #### [facility] CLIA [id number] [address] [place] Lymphocytes (Bld) [#/Vol] 2.29 10*3/uL Normal 1.00-4.00 [facility] Comment on above: Order Comment: Speci men Type: BLOOD SPECIMEN Ordering Facility: [facility] Address: [address] [place] [address] Performed By: #### 5 7021-8 #### [facility] CLIA [id number] [address] Lymphocytes/100 WBC (Bld) 30.1 % Normal [facility] Comment on above: Order Comment: Speci men Type: BLOOD SPECIMEN Ordering Facility: [facility] Address: [address] [place] [address] Performed By: #### 5 7021-8 #### [facility] CLIA [id number] [address] [place] [address] [place] [facility] MCH (RBC) [Entitic mass] 25.7 pg Low 26.0-34.0 [facility] Comment on above: Order Comment: Speci men Type: BLOOD SPECIMEN Ordering Facility: [facility] Address: [address] [place] [address] Performed By: #### 5 7021-8 #### [facility] CLIA [id number] [address] [place] [address] [place] MCHC (RBC) [Mass/Vol] 31.9 g/dL Normal 30.5-36.0 [facility] Comment on above: Order Comment: Speci men Type: BLOOD SPECIMEN Ordering Facility: [facility] Address: [address] [place] [address] Performed By: #### 5 7021-8 #### [facility] CLIA [id number] [address] [place] [address] [place] MCV (RBC) [Entitic vol] 80.7 fL Normal 80.0-100.0 [facility] Comment on above: Order Comment: Speci men Type: BLOOD SPECIMEN Ordering Facility: [facility] Address: [address] [address] Performed By: #### 5 7021-8 #### [facility] CLIA [id number] [address] [place] [address] [place] Monocytes (Bld) [#/Vol] 0.49 10*3/uL Normal <0.87 [facility] Comment on above: Order Comment: Speci men Type: BLOOD SPECIMEN Ordering Facility: [facility] Address: [address] [place] [address] Performed By: #### 5 7021-8 #### [facility] CLIA [id number] [address] [place] Monocytes/100 WBC (Bld) 6.4 % Normal [facility] Comment on above: Order Comment: Speci men Type: BLOOD SPECIMEN Ordering Facility: [facility] Address: [address] [place] [address] Performed By: #### 5 7021-8 #### [facility] CLIA [id number] [address] [place] [address] [place] Neutrophils (Bld) [#/Vol] 4.80 10*3/uL Normal 1.45-7.50 [facility] Comment on above: Order Comment: Speci men Type: BLOOD SPECIMEN Ordering Facility: [facility] Address: [address] [place] [address] Performed By: #### 5 7021-8 #### [facility] CLIA [id number] [address] [place] [address] [place] Neutrophils/100 WBC (Bld) 63.1 % Normal [facility] Comment on above: Order Comment: Speci men Type: BLOOD SPECIMEN Ordering Facility: [facility] Address: [address] [place] [address] Performed By: #### 5 7021-8 #### [facility] CLIA [id number] [address] [place] [address] [place] Nucleated RBC (Bld) [#/Vol] Normal [facility] Comment on above: Order Comment: Speci men Type: BLOOD SPECIMEN Ordering Facility: [facility] Address: [address] [place] [address] Performed By: #### 5 7021-8 #### [facility] CLIA [id number] [address] [place], [place] [address] [place] [address] [place] Nucleated RBC/100 WBC (Bld) [Ratio] Normal [facility] Comment on above: Order Comment: Speci men Type: BLOOD SPECIMEN Ordering Facility: [facility] Address: [address] [address] Performed By: #### 5 7021-8 #### [facility] CLIA [id number] [address] [place] [address] [place] Platelet mean volume (Bld) [Entitic vol] 9.7 fL Normal 9.0-12.7 [facility] Comment on above: Order Comment: Speci men Type: BLOOD SPECIMEN Ordering Facility: [facility] Address: [address] Performed By: #### 5 7021-8 #### [facility] CLIA [id number] [address] [place] [address] [place] Platelets (Bld) [#/Vol] 227 10*3/uL Normal 150-400 [facility] Comment on above: Order Comment: Speci men Type: BLOOD SPECIMEN Ordering Facility: [facility] Address: [address] Performed By: #### 5 7021-8 #### [facility] CLIA [id number] [address] [place] [address] [place] RBC (Bld) [#/Vol] 4.55 10*6/uL Normal 3.90-5.20 [facility] Comment on above: Order Comment: Speci men Type: BLOOD SPECIMEN Ordering Facility: [facility] Address: [address] Performed By: #### 5 7021-8 #### [facility] CLIA [id number] [address] [place] [address] [place] WBC (Bld) [#/Vol] 7.61 10*3/uL Normal 3.70-11.00 [facility] Comment on above: Order Comment: Speci men Type: BLOOD SPECIMEN Ordering Facility: [facility] Address: [address] [place] [address] Performed By: #### 5 7021-8 #### [facility] CLIA [id number] [address] [id number] [facility] [place] CK SerPl-cCncon 12-03-2022 CK [Catalytic activity/Vol] 75 U/L Normal 42-196 [facility] Comment on above: Order Comment: Speci men Type: BLOOD SPECIMEN Ordering Facility: [facility] Address: [address] [place] [address] Performed By: #### 2 4321-2, 2157-6 #### [facility] CLIA [id number] [address] [place], [place] [address] [facility] ED NOTEon 12-03-2022 ED NOTE HNO ID: [id number] Author: Zina Trimble RN Service: ? Author Type: Registered Nurse Type: ED Notes Filed: 12/03/2022 3:20 PM Note Text: D/c instructions reviewed with pt. Pt verbalized understanding. VSS. Pt left ED ual and in stable condition. Normal [facility] ED NOTE HNO ID: [id number] Author: Zina Trimble RN Service: ? Author [...] vss. AANDOx3, will continue to monitor. Normal [facility] ED PROV NOTEon 12-03-2022 ED PROV NOTE HNO ID: [id number] Author: Stu Johnson MD Service: Emergency Medicine [...] Patient notes she just moved back from [place] and does not have any referrals or [...] HISTORY OF 2012 caudal epidural steroid injection (Courtney) SUCTION D AND C 2010 FAMILY HISTORY [...] the follow (more content not included)... Normal [facility] HCG Preg Ur Qlon 12-03-2022 HCG ( test) Ql (U) Negative Normal Negative [facility] Comment on above: Order Comment: Speci men Type: URINE SPECIMENOrdering Facility: [facility] Address: [address] [place] [address] Result Comment: This test is intended to aid in the early detection of . Very dilute urine samples, as indicated by a low specific gravity, may not contain public health representative levels of hCG. This test detects [...] for . Performed By: #### 2 106-3 ####[facility] [id number] [place] [address] [place] Urinalysis complete panel (U )on 12-03-2022 Bacteria LM.HPF (Urine sed) [#/Area] Rare Abnormal None Seen [facility] Comment on above: Order Comment: Speci men Type: URINE SPECIMENOrdering Facility: [facility] Address: [address] [place] [address] Performed By: #### 2 4356-8 ####[facility] [id number] [place] [address] [place] Bilirubin Ql (U) Negative Normal Negative [facility] Comment on above: Order Comment: Speci men Type: URINE SPECIMENOrdering Facility: [facility] Address: [address] [place] [address] Performed By: #### 2 4356-8 ####[facility] [id number] [place] [address] [facility] Clarity (Unsp spec) Clear Normal Clear [facility] Comment on above: Order Comment: Speci men Type: URINE SPECIMENOrdering Facility: [facility] Address: [address] [place] [address] Performed By: #### 2 4356-8 ####[facility] [id number] [place] [address] [facility] Color (U) Yellow Normal Yellow [facility] Comment on above: Order Comment: Speci men Type: URINE SPECIMENOrdering Facility: [facility] Address: [address] [place] [address] Performed By: #### 2 4356-8 ####[facility] [id number] [place] [id number] [facility] Epithelial cells LM.HPF (Urine sed) [#/Area] Few Normal [facility] Comment on above: Order Comment: Speci men Type: URINE SPECIMENOrdering Facility: [facility] Address: [address] [place] [address] Performed By: #### 2 4356-8 ####[facility] [id number] [place] [address] [facility] Glucose Test strip (U) [Mass/Vol] Negative Normal Negative [facility] Comment on above: Order Comment: Speci men Type: URINE SPECIMENOrdering Facility: [facility] Address: [address] [place] [address] Performed By: #### 2 4356-8 ####[facility] [id number] [place] [address] [place] [facility] Hemoglobin Ql (U) 3+ Abnormal Negative [facility] Comment on above: Order Comment: Speci men Type: URINE SPECIMENOrdering Facility: [facility] Address: [address] [place] [address] Performed By: #### 2 4356-8 ####[facility] [id number] [place] [address] [facility] Ketones Ql (U) Negative Normal Negative [facility] Comment on above: Order Comment: Speci men Type: URINE SPECIMENOrdering Facility: [facility] Address: [address] [place] [address] Performed By: #### 2 4356-8 ####[facility] [id number] [facility] [place] [address] [facility] Leukocyte esterase Test strip Ql (U) Negative Normal Negative [facility] Comment on above: Order Comment: Speci men Type: URINE SPECIMENOrdering Facility: [facility] Address: [address] [place] [address] Performed By: #### 2 4356-8 ####[facility] [id number] [place] [address] [facility] Nitrite Ql (U) Negative Normal Negative [facility] Comment on above: Order Comment: Speci men Type: URINE SPECIMENOrdering Facility: [facility] Address: [address] [place] [address] Performed By: #### 2 4356-8 ####[facility] [id number] [place] [address] [facility] pH (U) 6.0 [pH] Normal 5.0-8.0 [facility] Comment on above: Order Comment: Speci men Type: URINE SPECIMENOrdering Facility: [facility] Address: [address] [place] [address] Performed By: #### 2 4356-8 ####[facility] [id number] [place] [address] [facility] Protein (U) [Mass/Vol] Negative Normal Negative [facility] Comment on above: Order Comment: Speci men Type: URINE SPECIMENOrdering Facility: [facility] Address: [address] [place] [address] Performed By: #### 2 4356-8 ####[facility]IA [id number] [place] [address] [facility] [place] RBC LM.HPF (Urine sed) [#/Area] 0-3 /HPF Normal 0-3 /HPF [facility] Comment on above: Order Comment: Speci men Type: URINE SPECIMENOrdering Facility: [facility] Address: [address] [place] [address] Performed By: #### 2 4356-8 ####[facility]CLIA [id number] [facility] [place] Urobilinogen Ql (U) 0.2 EU/dL Normal 0.2-1.0 EU/dL [facility] Comment on above: Order Comment: Speci men Type: URINE SPECIMENOrdering Facility: [facility] Address: [address] [place] [address] Performed By: #### 2 4356-8 ####[facility] LABCLIA [id number] [address] WBC LM.HPF (Urine sed) [#/Area] 0-5 /HPF Normal 0-5 /HPF [facility] Comment on above: Order Comment: Speci men Type: URINE SPECIMENOrdering Facility: [facility] Address: [address] [place] [address] Performed By: #### 2 4356-8 ####[facility] LABCLIA [id number] [address] Urinalysis complete pnl Uron 12-03-2022 Specific gravity (U) [Rel density] 1.020 Normal 1.005-1.030 [facility] Comment on above: Order Comment: Speci men Type: URINE SPECIMENOrdering Facility: [facility] Address: [address] [place] [address] Performed By: #### 2 4356-8 ####[facility] LABCLIA [id number] [address] Performed By: #### 2 106-3 ####[facility] LABCLIA [id number] [place] [id number] [facility] Absolute lymphocyte countOrd ered By: Dr. Rojo on 10-26-2022 Lymphocytes Auto (Unsp spec) [#/Vol] 2.61 10*3/uL 0.83-4.51 [facility] Basophil percentageOrdered B y: Dr. Rojo on 10-26-2022 Basophils/100 WBC (Bld) 0.5 % 0-1 [facility] Bilirubin [Mass/Vol] 1.00 mg/dL 0.20-1.00 [facility] Comment on above: For patients on eltr ombopag therapy, use of Dimension [place] TBIL is not recommended. Chloride [Moles/Vol] 107 mmol/L 98-107 [facility] Eosinophils/100 WBC (Bld) 0.1 % 0-5 [facility] Glucose [Mass/Vol] 88 mg/dL 74-106 [facility] Neutrophils (Bld) [#/Vol] 4.8 10*3/uL 2.0-7.7 [facility] Neutrophils/100 WBC (Bld) 60.8 % 47-70 [facility] Potassium [Moles/Vol] 3.8 mmol/L 3.5-5.1 [facility] Protein [Mass/Vol] 7.8 g/dL 6.4-8.2 [facility] Sodium [Moles/Vol] 137 mmol/L 136-145 [facility] WBC (Bld) [#/Vol] 7.8 10*3/uL 4.4-11.0 [facility] Beta hCG serum qualOrdered B y: Dr. Rojo on 10-26-2022 Beta HCG ( test) Ql Negative [facility] Blood erythrocytes count (nu mber/volume)Ordered By: Dr. Rojo on 10-26-2022 RBC (Bld) [#/Vol] 4.56 10*6/uL 4.2-5.4 [facility] Blood hemoglobin measurement (mass/volume)Ordered By: Dr. Rojo on 10-26-2022 Hemoglobin (Bld) [Mass/Vol] 11.8 g/dL 12.0-15.0 [facility] Blood lymphocytes/100 leukoc ytesOrdered By: Dr. Rojo on 10-26-2022 Lymphocytes/100 WBC (Bld) 33.4 % 19-41 [facility] Blood monocytes/100 leukocyt esOrdered By: Dr. Rojo on 10-26-2022 Monocytes/100 WBC (Bld) 4.9 % 0-10 [facility] Blood platelet mean volumeOr dered By: Dr. Rojo on 10-26-2022 Platelet mean volume (Bld) [Entitic vol] 9.7 fL 6.2-12.0 [facility] Determination of erythrocyte mean corpuscular volume (MCV)Ordered By: Dr. Rojo on 10-26-2022 MCV (RBC) [Entitic vol] 82.0 fL 81-99 [facility] Hematocrit Auto (Bld) [Volum e fraction]Ordered By: Dr. Rojo on 10-26-2022 Hematocrit (Bld) [Volume fraction] 37.4 % 37-47 [facility] Influenza virus A and B and SARS-CoV-2 (COVID-19) Ag panel - Upper respiratory specimOrdered By: Dr. Rojo on 10-26-2022 SARS-CoV-2 (COVID-19) RNA JYOTI+probe Ql (Resp) [facility] - Chemistry and C hemistry - challengeOrdered By: Dr. Rojo on 10-26-2022 ALP [Catalytic activity/Vol] 83 U/L 45-117 [facility] ALT [Catalytic activity/Vol] 19 U/L 13-56 [facility] CO2 [Moles/Vol] 26.0 mmol/L 21.0-32.0 [facility] Globulin (S) [Mass/Vol] 4.2 g/dL 2.2-4.2 [facility] Urea nitrogen/Creatinine [Mass ratio] 7.8 mg/mg 10-20 [facility] - Hematology and Cell countsOrdered By: Dr. Rojo on 10-26-2022 Erythrocyte distribution width (RBC) [Entitic vol] 45.6 fL 35.1-43.9 [facility] Erythrocyte distribution width (RBC) [Ratio] 15.3 % 11.6-14.6 [facility] Immature granulocytes/100 WBC (Bld) 0.300 % 0.0-0.9 [facility] Comment on above: IG% - Immature Granu locytes (promyelocytes, myelocytes and metamyelocytes) > 1% indicates that a LEFT SHIFT is Present. MCH (RBC) [Entitic mass] 25.9 pg 27.0-32.0 [facility] Nucleated RBC/100 WBC (Bld) [Ratio] 0 % 0-5 [facility] MCHC Auto (RBC) [Mass/Vol]Or dered By: Dr. Rojo on 10-26-2022 MCHC (RBC) [Mass/Vol] 31.6 g/dL 32-36 [facility] No Panel InformationOrdered By: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 UMICAO #### [facility] [address] [place] [address] CO2 molar conc 23 mmol/L Normal 20-31 [facility] Comment on above: Performed By: #### U A, UMICAO #### [facility] [address] [place] [address] Creatinine mass conc 0.70 mg/dL Normal 0.50-0.90 [facility] Comment on above: Performed By: #### U A, UMICAO #### [facility] [address] [place] [address] GFR, Amer >60 Normal >60 [facility] Comment on above: Performed By: #### U A, UMICAO #### [facility] [address] [place] [address] GFR,non Amer >60 Normal >60 [facility] Comment on above: Performed By: #### U A, UMICAO #### [facility] [address] [place] [address] Glucose mass conc 154 mg/dL High 70-99 [facility] Comment on above: Performed By: #### U A, UMICAO #### [facility] [address] [place] [address] Potassium molar conc 4.0 mmol/L Normal 3.7-5.3 [facility] Comment on above: Performed By: #### U A, UMICAO #### [facility] [address] [place] [address] Protein mass conc 8.4 g/dL High 6.4-8.3 [facility] Comment on above: Performed By: #### U Angel, UMICAO #### [facility] [address] [place] [address] Sodium molar conc 140 mmol/L Normal 135-144 [facility] Comment on above: Performed By: #### U Angel, UMICAO #### [facility] [address] [place] [address] Urea nitrogen mass conc 5 mg/dL Low 6-20 [facility] Comment on above: Performed By: #### U Angel, UMICAO #### [facility] [address] [facility] [address] [place] [id number] Albumin/Globulin mass ratio NOT REPORTED Normal 1.0-2.5 [facility] Comment on above: Performed By: #### U Angel, UMICAO #### [facility] [address] [facility] [address] Staging: NOT REPORTED Normal [facility] Comment on above: Performed By: #### U A, UMICAO #### [facility] [address] [place] [address] Diff Methodon 03-26-2019 Diff Method AUTO Normal [facility] Comment on above: Performed By: #### C DP, CP #### [facility] [address] [place] [address] (129) HCG Screen, Bloodon 03-26-20 19 HCG Qn Negative Normal NEG [facility] Comment on above: Result Comment: Spec imens with hCG levels near the threshold of the test (25 mIU/mL) may give a negative or indeterminate result. In such cases, another test should be performed with a new specimen in 48-72 hours. If early is suspected clinically in this setting, correlation with quantitative serum b-hCG level is suggested. [facility] has confirmed the use of plasma for this test. This has not been cleared or approved by the U.S. Food and Drug Administration. The FDA has determined that such clearance is not necessary. Performed By: #### U SAMEERA Ortiz #### [facility] [address] [place] [address] (317) Lactic Acidon 03-26-2019 Lactate molar conc 1.4 mmol/L Normal 0.5-2.2 [facility] Comment on above: Performed By: #### SAMEERA Carcamo #### [facility] [address] [place] [address] (614) Lactate molar conc NOT REPORTED Normal 0.7-2.1 [facility] Comment on above: Performed By: #### U SAMEERA Ortiz #### [facility] [address] [place] [address] (713) Lipaseon 03-26-2019 Lipase enzyme act/vol 17 U/L Normal 13-60 [facility] Comment on above: Performed By: #### U KAELYN OrtizO #### [facility] [address] [place] [address] (988) Urinalysis w/ Microon 2018 ----- Normal [facility] Comment on above: Performed By: #### C DP, CP #### [facility] [address] [place] [address] ([address] Bacteria LM.HPF #/area (Urine sed) 2+ Abnormal NONE [facility] Comment on above: Performed By: #### C DP, CP #### [facility] [address] [place] [address] Epithelial cells LM.HPF #/area (Urine sed) 5 TO 10 Normal [facility] Comment on above: Performed By: #### C DP, CP #### [facility] [address] [place] [address] Mucus Strands 3+ Abnormal NONE [facility] Comment on above: Performed By: #### C DP, CP #### [facility] [address] [place] [address] RBC #/vol (U) 0 TO 2 Normal 0-2 [facility] Comment on above: Performed By: #### C DP, CP #### [facility] [address] [place] [address] WBC #/vol (U) 5 TO 10 Normal 0 [facility] Comment on above: Performed By: #### C DP, CP #### [place] [address] Acetoacetic Acid,Ur Negative Normal NEG [facility] Comment on above: Performed By: #### C DP, CP #### [place] [address] Bilirubin, SemiQt,Ur Negative Normal NEG [facility] Comment on above: Performed By: #### C DP, CP #### [facility] [address] [place] [address] Color Nom (U) YELLOW Normal YEL [facility] Comment on above: Performed By: #### C DP, CP #### [place] [address] Comment Normal [facility] Comment on above: Performed By: #### C DP, CP #### [facility] [address] [facility] [place] [address] Glucose,Semi-qnt,Ur Negative Normal NEG [facility] Comment on above: Performed By: #### C DP, CP #### [facility] [address] [facility] [place] [address] Hemoglobin, Ur TRACE Abnormal NEG [facility] Comment on above: Performed By: #### C DP, CP #### [facility] [address] [place] [address] Leuckocyte Esterase 2+ Abnormal NEG [facility] Comment on above: Performed By: #### C DP, CP #### [facility] [address] [place] [address] Nitrite,Ur Negative Normal NEG [facility] Comment on above: Performed By: #### C DP, CP #### [facility] [address] [place] [address] PH,Ur 5.0 Normal 5.0-8.0 [facility] Comment on above: Performed By: #### C DP, CP #### [facility] [address] [place] [address] Protein mass conc (U) Negative Normal NEG [facility] Comment on above: Performed By: #### C DP, CP #### [facility] [address] [place] [address] Spec. [place],Ur 1.020 Normal 1.005-1.030 [facility] Comment on above: Performed By: #### C DP, CP #### [facility] [address] [place] [address] Turbidity HAZY Abnormal CLEAR [facility] Comment on above: Performed By: #### C DP, CP #### [place] [address] Urobilinogen,Ur Normal Normal NORM [facility] Comment on above: Performed By: #### C DP, CP #### [facility] [address] [facility] [place] [address] Amorphous sediment LM Ql (Urine sed) NOT REPORTED Normal NONE [facility] Comment on above: Performed By: #### C DP, CP #### [facility] [address] [facility] [place] [address] Casts LM.LPF #/area (Urine sed) NOT REPORTED Normal [facility] Comment on above: Performed By: #### C DP, CP #### [facility] [address] [facility] [place] [address] Crystals LM Nom (Urine sed) NOT REPORTED Normal NONE [facility] Comment on above: Performed By: #### C DP, CP #### [facility] [address] [place] [address] Epithelial, Renal NOT REPORTED Normal 0 [facility] Comment on above: Performed By: #### C DP, CP #### [facility] [address] [place] [address] Other Observations NOT REPORTED Normal NREQ [facility] Comment on above: Performed By: #### C DP, CP #### [facility] [address] [place] [address] Trichomonas NOT REPORTED Normal NONE [facility] Comment on above: Performed By: #### C DP, CP #### [facility] [address] [place] [address] Yeast LM Ql (Urine sed) NOT REPORTED Normal NONE [facility] Comment on above: Performed By: #### C DP, CP #### [facility] [address] [facility] [place] [address] Amylaseon 03-18-2019 Amylase enzyme act/vol 51 U/L Normal 30 - 110 [facility] Comment on above: Performed By: #### L IPASE, CMP, AMYLASE #### [facility] [address] [place] [address] CBC W Auto Differentialon Abs Neut # 5.9 10 X 3/mm Normal 1.8 - 7.7 [facility] Comment on above: Performed By: #### C BC Auto Diff #### [place] [address] [place] [address] Basophils/100 WBC (Bld) 1 % Normal 0 - 1 [facility] Comment on above: Performed By: #### C BC Auto Diff #### [place] [address] [place] [address] Eosinophils #/vol (Bld) 0.7 10 X 3/mm High 0.0 - 0.5 [facility] Comment on above: Performed By: #### C BC Auto Diff #### [place] [address] [place] [address] Eosinophils/100 WBC (Bld) 7 % High 0 - 5 [facility] Comment on above: Performed By: #### C BC Auto Diff #### [place] [address] [place] [address] Erythrocyte distribution width Ratio (RBC) 17.5 % High 11.5 - 14.5 [facility] Comment on above: Performed By: #### C BC Auto Diff #### [place] [address] [place] [address] Hematocrit Volume Fraction (Bld) 39.0 % Normal 36.0 - 47.0 [facility] Comment on above: Performed By: #### C BC Auto Diff #### [place] [address] [place] [address] Hemoglobin mass conc (Bld) 12.4 g/dL Normal 12.0 - 16.0 [facility] Comment on above: Performed By: #### C BC Auto Diff #### [facility] [address] [place] [address] Lymphocytes #/vol (Bld) 2.2 10 X 3/mm Normal 1.0 - 4.0 [facility] Comment on above: Performed By: #### C BC Auto Diff #### [address] [address] Lymphocytes/100 WBC (Bld) 23 % Normal 20 - 40 [facility] Comment on above: Performed By: #### C BC Auto Diff #### [place] [address] [place] [address] MCH Entitic mass (RBC) 24.7 pg Low 27.0 - 35.0 [facility] Comment on above: Performed By: #### C BC Auto Diff #### [address] [address] MCHC mass conc (RBC) 31.9 g/dL Low 32.0 - 36.0 [facility] Comment on above: Performed By: #### C BC Auto Diff #### [address] [address] MCV Entitic volume (RBC) 77.4 fL Low 80.0 - 100.0 [facility] Comment on above: Performed By: #### C BC Auto Diff #### [place] [address] [place] [address] Monocytes/100 WBC (Bld) 7 % Normal 1 - 15 [facility] Comment on above: Performed By: #### C BC Auto Diff #### [address] [address] Neutrophils/100 WBC (Bld) 62 % Normal 50 - 70 [facility] Comment on above: Performed By: #### C BC Auto Diff #### [facility] [address] [place] [address] Platelet mean volume Entitic volume (Bld) 9.0 fL Normal 7.5 - 11.5 [facility] Comment on above: Performed By: #### C BC Auto Diff #### [facility] [address] [place] [address] Platelets #/vol (Bld) 285 uLx10 Normal 150 - 450 [facility] Comment on above: Performed By: #### C BC Auto Diff #### [facility] [address] [place] [address] RBC #/vol (Bld) 5.03 10 X 6/mm Normal 4.20 - 5.40 [facility] Comment on above: Performed By: #### C BC Auto Diff #### [facility] [address] [place] [address] WBC #/vol (Bld) 9.5 10 X 3/mm Normal 3.7 - 11.[address] [facility] Comment on above: Performed By: #### C BC Auto Diff #### [place] [address] [place] [address] CT ABD/PELVIS WOon 9 CT ABD/PELVIS WO [...] electronically signed by: Dr. Fernie Elliott Normal [facility] Comprehensive Metabolic Pane guille 03-18-2019 GFR/1.73 sq M predicted among non-blacks MDRD vol rate/area (S/P/Bld) 125.24 Normal [facility] Comment on above: Result Comment: eGFR Interpretation: Normal: Equal to or greater than 60 mL/min/1.73 meters squared Chronic Kidney Disease: Less than 60 mL/min/1.73 meters squared Kidney Failure: Less than 15 mL/min/1.73 meters squared Performed By: #### L IPASE, CMP, AMYLASE #### [facility] [address] [place] [address] GFR/1.73 sq M predicted among non-blacks MDRD vol rate/area (S/P/Bld) 118.9 Normal [facility] Comment on above: Result Comment: eGFR Interpretation: Normal: Equal to or greater than 60 mL/min/1.73 meters squared Chronic Kidney Disease: Less than 60 mL/min/1.73 meters squared Kidney Failure: Less than 15 mL/min/1.73 meters squared Performed By: #### L IPASE, CMP, AMYLASE #### [facility] [address] [place] [address] GFR/1.73 sq M predicted among non-blacks MDRD vol rate/area (S/P/Bld) 129.74 Normal [facility] Comment on above: Result Comment: eGFR Interpretation: Normal: Equal to or greater than 60 mL/min/1.73 meters squared Chronic Kidney Disease: Less than 60 mL/min/1.73 meters squared Kidney Failure: Less than 15 mL/min/1.73 meters squared Performed By: #### L IPASE, CMP, AMYLASE #### [place] [address] [place] [address] GFR/1.73 sq M predicted among non-blacks MDRD vol rate/area (S/P/Bld) 192.10 [facility] Comment on above: Performed By: #### L IPASE, CMP, AMYLASE #### [address] [address] GFR/1.73 sq M predicted among non-blacks MDRD vol rate/area (S/P/Bld) 166.17 [facility] Comment on above: Result Comment: eGFR Interpretation: Normal: Equal to or greater than 60 mL/min/1.73 meters squared Chronic Kidney Disease: Less than 60 mL/min/1.73 meters squared Kidney Failure: Less than 15 mL/min/1.73 meters squared Performed By: #### L IPASE, CMP, AMYLASE #### [address] [address] GFR/1.73 sq M predicted among non-blacks MDRD vol rate/area (S/P/Bld) 137.09 [facility] Comment on above: Performed By: #### L IPASE, CMP, AMYLASE #### [address] [address] GFR/1.73 sq M predicted among non-blacks MDRD vol rate/area (S/P/Bld) 144.37 [facility] Comment on above: Performed By: #### L IPASE, CMP, AMYLASE #### [address] [address] GFR/1.73 sq M predicted among non-blacks MDRD vol rate/area (S/P/Bld) 149.98 [facility] Comment on above: Performed By: #### L IPASE, CMP, AMYLASE #### [place] [address] [place] [address] Age Reported 28 year(s) Normal [facility] Comment on above: Performed By: #### L IPASE, CMP, AMYLASE #### [address] [address] Albumin mass conc 4.3 g/dL Normal 3.5 - 5.0 [facility] Comment on above: Performed By: #### L IPASE, CMP, AMYLASE #### [address] [address] ALP enzyme act/vol 80 U/L Normal 38 - [address] [facility] Comment on above: Performed By: #### L IPASE, CMP, AMYLASE #### [address] [address] ALT enzyme act/vol 28 U/L Normal 0 - [address] [facility] Comment on above: Performed By: #### L IPASE, CMP, AMYLASE #### [address] [address] AST enzyme act/vol 35 U/L Normal 14 - [address] [facility] Comment on above: Performed By: #### L IPASE, CMP, AMYLASE #### [address] [address] Bilirubin mass conc 1.2 mg/dL Normal 0.2 - 1.3 [facility] Comment on above: Performed By: #### L IPASE, CMP, AMYLASE #### [address] [address] Calcium mass conc 9.5 mg/dL Normal 8.4 - 10.2 [facility] Comment on above: Performed By: #### L IPASE, CMP, AMYLASE #### [place] [address] [place] [address] Chloride molar conc 102 mmol/L Normal 98 - 107 [facility] Comment on above: Performed By: #### L IPASE, CMP, AMYLASE #### [place] [address] [place] [address] CO2 molar conc 23 mmol/L Normal 22 - 32 [facility] Comment on above: Performed By: #### L IPASE, CMP, AMYLASE #### [place] [address] [place] [address] Creatinine mass conc 0.66 mg/dL Normal 0.52 - 1.04 [facility] Comment on above: Performed By: #### L IPASE, CMP, AMYLASE #### [address] [address] Glucose mass conc 87 mg/dL Normal 65 - 100 [facility] Comment on above: Performed By: #### L IPASE, CMP, AMYLASE #### [address] [address] Potassium molar conc 4.6 mmol/L Normal 3.6 - 5.0 [facility] Comment on above: Performed By: #### L IPASE, CMP, AMYLASE #### [place] [address] [place] [address] Protein mass conc 7.7 g/dL Normal 6.3 - 8.2 [facility] Comment on above: Performed By: #### L IPASE, CMP, AMYLASE #### [address] [address] Sodium molar conc 136 mmol/L Normal 135 - 145 [facility] Comment on above: Performed By: #### L IPASE, CMP, AMYLASE #### [place] [address] [place] [address] Urea nitrogen mass conc 6 mg/dL Low 7 - 17 [facility] Comment on above: Performed By: #### L IPASE, CMP, AMYLASE #### [place] [address] [place] [address] Lipaseon 03-18-2019 Lipase enzyme act/vol 81 U/L Normal 23 - 300 [facility] Comment on above: Performed By: #### L IPASE, CMP, AMYLASE #### [address] [address] hCG, Qualitative-Serumon Internal Control ACCEPTABLE Normal [facility] Comment on above: Performed By: #### H CG,QUAL SERUM #### [address] [address] hCG, Qualitative-Serum Negative Normal NEGATIVE [facility] Comment on above: Performed By: #### H CG,QUAL SERUM #### [address] [address] Age at specimen collection = Normal [facility] Comment on above: Performed By: #### H CG,QUAL SERUM #### [address] [address] Performed By: #### C BC Auto Diff #### [address] [address] Performed By: #### L IPASE, CMP, AMYLASE #### [address] [address] CBCon 02-26-2019 ABSOLUTE BAS 0.1 X10 [facility] Comment on above: Performed By: #### A CBC ####Testing performed at [facility] [place] [address] ABSOLUTE EOS 0.10 X10 [facility] Comment on above: Performed By: #### A CBC ####Testing performed at [address] [address] ABSOLUTE NEUTROPHIL COUNT 6.2 x10 Normal 1.0-7.0 [facility] Comment on above: Performed By: #### A CBC ####Testing performed at [address] [address] Basophils/100 WBC (Bld) 1.2 % Normal 0.0-2.0 [facility] Comment on above: Performed By: #### A CBC ####Testing performed at [address] [address] DTYPE AUTO DIFF Normal [facility] Comment on above: Performed By: #### A CBC ####Testing performed at [address] [address] Eosinophils/100 WBC (Bld) 1.5 % Normal 0.0-11.0 [facility] Comment on above: Performed By: #### A CBC ####Testing performed at [address] [address] Lymphocytes #/vol (Bld) 2.40 X10 Normal [facility] Comment on above: Performed By: #### A CBC ####Testing performed at [address] [address] Lymphocytes/100 WBC (Bld) 25.7 % Normal 20.0-55.0 [facility] Comment on above: Performed By: #### A CBC ####Testing performed at [address] [address] Monocytes #/vol (Bld) 0.5 X10 Normal [facility] Comment on above: Performed By: #### A CBC ####Testing performed at [address] [address] Monocytes/100 WBC (Bld) 5.2 % Normal 0.0-10.0 [facility] Comment on above: Performed By: #### A CBC ####[place] [address] Neutrophils/100 WBC (Bld) 66.4 % Normal 37.0-75.0 [facility] Comment on above: Performed By: #### A CBC ####[place] [address] Erythrocyte distribution width Ratio (RBC) 17.6 % High 11.5-14.5 [facility] Comment on above: Performed By: #### A CBC ####[place] [address] Hematocrit Volume Fraction (Bld) 36.7 % Normal 36.0-48.0 [facility] Comment on above: Performed By: #### A CBC ####[place] [address] Hemoglobin mass conc (Bld) 11.8 g/dL Low 12.0-16.0 [facility] Comment on above: Performed By: #### A CBC ####[place] [address] MCH Entitic mass (RBC) 24.5 pg Low 26.0-35.0 [facility] Comment on above: Performed By: #### A CBC ####Testing performed at [place] [id number] MCHC mass conc (RBC) 32.3 g/dL Normal 27.0-37.0 [facility] Comment on above: Performed By: #### A CBC ####Testing performed at [place] [id number] MCV Entitic volume (RBC) 75.9 fL Low 80.0-100.0 [facility] Comment on above: Performed By: #### A CBC ####Testing performed at [address] [address] Platelet mean volume Entitic volume (Bld) 8.1 fL Normal 7.4-11.0 [facility] Comment on above: Performed By: #### A CBC ####Testing performed at [address] [address] Platelets #/vol (Bld) 320 /cmm Normal 130.0-400.0 [facility] Comment on above: Performed By: #### A CBC ####Testing performed at [address] [address] RBC #/vol (Bld) 4.83 /cmm Normal 4.0-5.4 [facility] Comment on above: Performed By: #### A CBC ####Testing performed at [address] [address] WBC #/vol (Bld) 9.3 /cmm Normal 3.6-11.0 [facility] Comment on above: Performed By: #### A CBC ####Testing performed at [address] [address] CMP FASTINGon 02-26-2019 A:G RATIO 1.2 RATIO Low 1.3-2.2 [facility] Comment on above: Performed By: #### A CBC ####Testing performed at [address] [address] Albumin mass conc 4.6 G/dl Normal 3.5-5.0 [facility] Comment on above: Performed By: #### A CBC ####Testing performed at [address] [address] ALP enzyme act/vol 85 U/L Normal 38-126 [facility] Comment on above: Performed By: #### A CBC ####Testing performed at [address] [address] ALT enzyme act/vol 17 U/L Normal 9-52 [facility] Comment on above: Performed By: #### A CBC ####Testing performed at [address] [address] AST enzyme act/vol 22 U/L Normal 14-36 [facility] Comment on above: Performed By: #### A CBC ####Testing performed at [address] [address] Bilirubin mass conc 1.0 mg/dL Normal 0.2-1.3 [facility] Comment on above: Performed By: #### A CBC ####Testing performed at [place] [id number] Calcium mass conc 9.3 mg/dL Normal 8.4-10.2 [facility] Comment on above: Performed By: #### A CBC ####Testing performed at [place] [id number] Chloride molar conc 102 mmol/L Normal 98-107 [facility] Comment on above: Result Comment: Anna Marie willard note: Triglyceride levels of 600mg/dL or higher may positively bias chloride results by approximately 2.1 mmol Performed By: #### A CBC ####Testing performed at [address] [address] CO2 molar conc 27 mmol/L Normal 22-30 [facility] Comment on above: Performed By: #### A CBC ####Testing performed at [address] [address] Creatinine mass conc 0.8 mg/dL Normal 0.7-1.2 [facility] Comment on above: Performed By: #### A CBC ####Testing performed at [address] [address] EST. GFR, >60 Normal [facility] Comment on above: Performed By: #### A CBC ####Testing performed at [address] [address] EST. GFR,Non >60 Normal [facility] Comment on above: Performed By: #### A CBC ####Testing performed at [address] [address] GFR/1.73 sq M predicted among non-blacks MDRD vol rate/area (S/P/Bld) Average GFR for 30-39 years old = 109. Normal [facility] Comment on above: Result Comment: Webmethod[employer] Architect frantz Kidney disease, GFR = <60. Kidney failure, GFR = <15. The GFR estimate is not adjusted for extreme body surface area or acute process, nor has it been validated for women or ethnic groups other than and . Performed By: #### A CBC ####Testing performed at [place] [id number] Glucose mass conc 91 mg/dL Normal 70-100 [facility] Comment on above: Result Comment: NORMAL <100 mg/dL PREDIABETES 101-126 mg/dL DIABETES 126 mg/dL or higher Performed By: #### A CBC ####Testing performed at [address] [address] Potassium molar conc 4.0 mmol/L Normal 3.5-5.1 [facility] Comment on above: Performed By: #### A CBC ####Testing performed at [address] [address] Protein mass conc 8.4 g/dL High 6.3-8.2 [facility] Comment on above: Performed By: #### A CBC ####Testing performed at [address] [address] Sodium molar conc 139 mmol/L Normal 137-145 [facility] Comment on above: Performed By: #### A CBC ####Testing performed at [address] [address] Urea nitrogen mass conc 8 mg/dL Normal 7-20 [facility] Comment on above: Performed By: #### A CBC ####Testing performed at [address] [address] ESRon 02-26-2019 ESR Velocity (Bld) 59 mm/h High 0-15 [facility] LIPASE,SERUMon 02-26-2019 LIPASE,SERUM 53 U/L Normal 23-300 [facility] Comment on above: Performed By: #### A CBC ####Testing performed at [address] [address] CBCon 02-18-2019 ABSOLUTE BAS 0.1 X10 Normal [facility] Comment on above: Performed By: #### A CBC, CMPF ####Testing performed at [place] [id number] ABSOLUTE EOS 0.40 X10 Normal [facility] Comment on above: Performed By: #### A CBC, CMPF ####Testing performed at [place] [id number] ABSOLUTE NEUTROPHIL COUNT 5.4 x10 Normal 1.0-7.0 [facility] Comment on above: Performed By: #### A CBC, CMPF ####Testing performed at [address] [address] Basophils/100 WBC (Bld) 0.6 % Normal 0.0-2.0 [facility] Comment on above: Performed By: #### A CBC, CMPF ####Testing performed at [address] [address] DTYPE AUTO DIFF Normal [facility] Comment on above: Performed By: #### A CBC, CMPF ####Testing performed at [address] [address] Eosinophils/100 WBC (Bld) 4.0 % Normal 0.0-11.0 [facility] Comment on above: Performed By: #### A CBC, CMPF ####Testing performed at [place] [id number] Lymphocytes #/vol (Bld) 2.30 X10 Normal [facility] Comment on above: Performed By: #### A CBC, CMPF ####Testing performed at [address] [address] Lymphocytes/100 WBC (Bld) 26.0 % Normal 20.0-55.0 [facility] Comment on above: Performed By: #### A CBC, CMPF ####Testing performed at [address] [address] Monocytes #/vol (Bld) 0.6 X10 Normal [facility] Comment on above: Performed By: #### A CBC, CMPF ####Testing performed at [address] [address] Monocytes/100 WBC (Bld) 7.1 % Normal 0.0-10.0 [facility] Comment on above: Performed By: #### A CBC, CMPF ####Testing performed at [address] [address] Neutrophils/100 WBC (Bld) 62.3 % Normal 37.0-75.0 [facility] Comment on above: Performed By: #### A CBC, CMPF ####Testing performed at [address] [address] Erythrocyte distribution width Ratio (RBC) 17.1 % High 11.5-14.5 [facility] Comment on above: Performed By: #### A CBC, CMPF ####Testing performed at [address] [address] Hematocrit Volume Fraction (Bld) 36.7 % Normal 36.0-48.0 [facility] Comment on above: Performed By: #### A CBC, CMPF ####Testing performed at [address] [place] [address] Hemoglobin mass conc (Bld) 11.8 g/dL Low 12.0-16.0 [facility] Comment on above: Performed By: #### A CBC, CMPF ####Testing performed at [address] [address] MCH Entitic mass (RBC) 24.5 pg Low 26.0-35.0 [facility] Comment on above: Performed By: #### A CBC, CMPF ####Testing performed at [place] [id number] MCHC mass conc (RBC) 32.2 g/dL Normal 27.0-37.0 [facility] Comment on above: Performed By: #### A CBC, CMPF ####[place] [address] MCV Entitic volume (RBC) 75.9 fL Low 80.0-100.0 [facility] Comment on above: Performed By: #### A CBC, CMPF ####Testing performed at [address] [address] Platelet mean volume Entitic volume (Bld) 8.2 fL Normal 7.4-11.0 [facility] Comment on above: Performed By: #### A CBC, CMPF ####Testing performed at [address] [address] Platelets #/vol (Bld) 283 /cmm Normal 130.0-400.0 [facility] Comment on above: Performed By: #### A CBC, CMPF ####Testing performed at [place] 2463220 RBC #/vol (Bld) 4.83 /cmm Normal 4.0-5.4 [facility] Comment on above: Performed By: #### A CBC, CMPF ####Testing performed at [address] [address] WBC #/vol (Bld) 8.8 /cmm Normal 3.6-11.0 [facility] Comment on above: Performed By: #### A CBC, CMPF ####Testing performed at [address] [address] CMP FASTINGon 02-18-2019 Potassium molar conc 3.8 mmol/L Normal 3.5-5.1 [facility] Comment on above: Performed By: #### A CBC, CMPF ####[place] [address] A:G RATIO 1.2 RATIO Low 1.3-2.2 [facility] Comment on above: Performed By: #### A CBC, CMPF ####Testing performed at [address] [address] Albumin mass conc 4.6 G/dl Normal 3.5-5.0 [facility] Comment on above: Performed By: #### A CBC, CMPF ####Testing performed at [place] [id number] ALP enzyme act/vol 78 U/L Normal 38-126 [facility] Comment on above: Performed By: #### A CBC, CMPF ####Testing performed at [address] [address] ALT enzyme act/vol 18 U/L Normal 9-52 [facility] Comment on above: Performed By: #### A CBC, CMPF ####Testing performed at [address] [address] AST enzyme act/vol 18 U/L Normal 14-36 [facility] Comment on above: Performed By: #### A CBC, CMPF ####Testing performed at [address] [address] Bilirubin mass conc 1.1 mg/dL Normal 0.2-1.3 [facility] Comment on above: Performed By: #### A CBC, CMPF ####Testing performed [place] [id number] Calcium mass conc 9.0 mg/dL Normal 8.4-10.2 [facility] Comment on above: Performed By: #### A CBC, CMPF ####[place] [address] Chloride molar conc 104 mmol/L Normal 98-107 [facility] Comment on above: Result Comment: Anna Marie willard note: Triglyceride levels of 600mg/dL or higher may positively bias chloride results by approximately 2.1 mmol Performed By: #### A CBC, CMPF ####[place] [address] CO2 molar conc 26 mmol/L Normal 22-30 [facility] Comment on above: Performed By: #### A CBC, CMPF ####[place] [address] Creatinine mass conc 1.1 mg/dL Normal 0.7-1.2 [facility] Comment on above: Performed By: #### A CBC, CMPF ####Testing performed at [place] [id number] EST. GFR, >60 Normal [facility] Comment on above: Performed By: #### A CBC, CMPF ####Testing performed at [place] [id number] EST. GFR,Non >60 Normal [facility] Comment on above: Performed By: #### A CBC, CMPF ####Testing performed at [place] 2463220 GFR/1.73 sq M predicted among non-blacks MDRD vol rate/area (S/P/Bld) Average GFR for 30-39 years old = 109. Normal [facility] Comment on above: Result Comment: [employer]ethod[employer] Architect frantz Kidney disease, GFR = <60. Kidney failure, GFR = <15. The GFR estimate is not adjusted for extreme body surface area or acute process, nor has it been validated for women or ethnic groups other than and . Performed By: #### A CBC, CMPF ####Testing performed at [address] [address] Glucose mass conc 79 mg/dL Normal 70-100 [facility] Comment on above: Result Comment: NORMAL <100 mg/dL PREDIABETES 101-126 mg/dL DIABETES 126 mg/dL or higher Performed By: #### A CBC, CMPF ####Testing performed at [address] [address] Protein mass conc 8.3 g/dL High 6.3-8.2 [facility] Comment on above: Performed By: #### A CBC, CMPF ####[place] [address] Sodium molar conc 142 mmol/L Normal 137-145 [facility] Comment on above: Performed By: #### A CBC, CMPF ####Testing performed at [address] [address] Urea nitrogen mass conc 6 mg/dL Low 7-20 [facility] Comment on above: Performed By: #### A CBC, CMPF ####Testing performed at [address] [address] [address] ABDOMEN/PELVIS WITHOUT CO NTRASTon 02-18-2019 CT [...] abdomen and pelvis. 3. Prior cholecystectomy. Normal [facility] ESRon 02-18-2019 ESR Velocity (Bld) 49 mm/h High 0-15 [facility] Comment on above: Performed By: #### E SR ####Testing performed at [place] [id number] URINE CULTUREon 02-18-2019 Bacteria identified Cx Nom (U) SPECIMEN DESCRIPTION URINE CLEAN CATCH UA DIPSTICK LEUKOCYTE POSITIVE * Result Note: NITRITE NEGATIVE * CULTURE NO GROWTH 1 DAY * Result Note: Testing performed at [place] [address] * REPORT STATUS PENDING Normal [facility] Comment on above: Performed By: #### A URNC ####Testing performed at [place] [id number] performed at [place] [id number] URINE HCG QUALon 02-18-2019 HCG.beta subunit ( test) Ql (U) Negative Normal [facility] Comment on above: Performed By: #### U HCGT ####Testing performed at [address] [address] URINE MACROSCOPICon 02-19-20 19 Bilirubin Ql (U) Negative Normal NEGATIVE [facility] Comment on above: Performed By: #### U HCGT ####Testing performed at [address] [address] Clarity Nom (U) CLEAR Normal CLEAR [facility] Comment on above: Performed By: #### U HCGT ####Testing performed at [address] [place] [address] Color Nom (U) YELLOW Normal YELLOW [facility] Comment on above: Performed By: #### U HCGT ####Testing performed at [address] [place] [address] Glucose Ql (U) Negative Normal NEGATIVE [facility] Comment on above: Performed By: #### U HCGT ####Testing performed at [address] [place] [address] pH (U) 5.5 [pH] Normal 5.0-7.0 [facility] Comment on above: Performed By: #### U HCGT ####Testing performed at [address] [place] [address] Protein mass conc (U) Negative Normal NEGATIVE [facility] Comment on above: Performed By: #### U HCGT ####Testing performed at [address] [place] [address] URINE HEMOGLOBIN TRACE-LYSED Abnormal NEGATIVE [facility] Comment on above: Performed By: #### U HCGT ####Testing performed at [address] [place] [address] URINE KETONE Negative Normal NEGATIVE [facility] Comment on above: Performed By: #### U HCGT ####Testing performed at [address] [place] [address] URINE LEUKOTEST TRACE Abnormal NEGATIVE [facility] Comment on above: Performed By: #### U HCGT ####Testing performed at [address] [place] [address] URINE NITRATES Negative Normal NEGATIVE [facility] Comment on above: Performed By: #### U HCGT ####Testing performed at [address] [place] [id number] URINE SPEC GRAVITY 1.020 Normal 1.010-1.025 [facility] Comment on above: Performed By: #### U HCGT ####[place] [address] Urobilinogen Qn (U) 0.2 mg/dl Normal 0.2-1.0 [facility] Comment on above: Performed By: #### U HCGT ####[place] [address] URINE MICROSCOPICon 02-19-20 19 Bacteria LM.HPF #/area (Urine sed) TRACE Abnormal NEGATIVE [facility] Comment on above: Performed By: #### U HCGT ####[place] [address] Casts LM.LPF #/area (Urine sed) NONE Normal NONE [facility] Comment on above: Performed By: #### U HCGT ####[place] [address] CRYSTAL NONE Normal NONE [facility] Comment on above: Performed By: #### U HCGT ####[place] [address] Epithelial cells LM.HPF #/area (Urine sed) 1 TO 5 Normal [facility] Comment on above: Performed By: #### U HCGT ####[place] [address] Mucus Ql (Urine sed) Negative Normal NEGATIVE [facility] Comment on above: Performed By: #### U HCGT ####[place] [address] RBC #/vol (U) 1 TO 5 Normal NEGATIVE [facility] Comment on above: Performed By: #### U HCGT ####[place] [address] URINE COMMENT REFLEX CULTURE PER ESTABLISHED CRITERIA. Normal [facility] Comment on above: Performed By: #### U HCGT ####Testing performed at [facility] [place] [address] WBC #/vol (U) 1 TO 5 Normal NEGATIVE [facility] Comment on above: Performed By: #### U HCGT ####Testing performed at [place] [address] [place] [address] Organism ID w/ [id number] Organism ID w/ Sensi Specimen Descriptio n .FECES Special Requests NOT REPORTED Culture NO SHIGELLA SP. ISOLATED Nucleic acid detected, but organism was not recovered in culture. Susceptibility testing cannot be performed. Report Status FINAL 02/08/2019 Normal [facility] Comment on above: Performed By: #### C DP #### [address] [address] #### GERRY KIM #### [address] [place] [address] Stool PCR Batteryon 02-10-20 19 Shigella sp PCR Positive Abnormal [facility] Comment on above: [...] performed. Performed By: #### C DP #### [address] [address] #### JULIO BMP #### [address] [place] [address] CBC with Diffon 02-08-2019 Abs. Basophil 0.04 k/uL Normal 0.00-0.20 [facility] Comment on above: Performed By: #### C DP #### [address] [address] #### TROPI, BMP #### [address] [place] [address] Abs.Imm.Granulocyte 0.05 k/uL Normal 0.00-0.30 [facility] Comment on above: Performed By: #### C DP #### [address] [address] #### TROPI, BMP #### [address] [place] [address] Abs.Neutrophil (Seg) 5.19 k/uL Normal 1.50-8.10 [facility] Comment on above: Performed By: #### C DP #### [address] [address] #### TROPI, BMP #### [address] [place] [address] Basophils/100 WBC (Bld) 1 % Normal 0-2 [facility] Comment on above: Performed By: #### C DP #### [address] [address] #### TROPI, BMP #### [address] [place] [address] Eosinophils #/vol (Bld) 10*3/uL Normal 0.00-0.44 [facility] Comment on above: Performed By: #### C DP #### [address] [address] #### TROPI, BMP #### [address] [place] [address] Eosinophils/100 WBC (Bld) 0 % Low 1-4 [facility] Comment on above: Performed By: #### C DP #### [address] [address] #### TROPI, BMP #### [address] [place] [id number] Erythrocyte distribution width Ratio (RBC) 15.6 % High 11.8-14.4 [facility] Comment on above: Performed By: #### C DP #### [address] [address] #### TROPI, BMP #### [address] [place] [address] Hematocrit Volume Fraction (Bld) 37.1 % Normal 36.3-47.1 [facility] Comment on above: Performed By: #### C DP #### [address] [address] #### TROPI, BMP #### [address] [place] [address] Hemoglobin mass conc (Bld) 11.2 g/dL Low 11.9-15.1 [facility] Comment on above: Performed By: #### C DP #### [address] [address] #### TROPI, BMP #### [address] [place] [address] Immature granulocytes #/vol (Bld) 1 % High 0 [facility] Comment on above: Performed By: #### C DP #### [address] [address] #### TROPI, BMP #### [address] [place] [address] Lymphocytes #/vol (Bld) 2.13 10*3/uL Normal 1.10-3.70 [facility] Comment on above: Performed By: #### C DP #### [address] [address] #### TROPI, BMP #### [address] [place] [id number] Lymphocytes/100 WBC (Bld) 27 % Normal 24-43 [facility] Comment on above: Performed By: #### C DP #### [address] [address] #### TROPI, BMP #### [address] [place] [address] MCH Entitic mass (RBC) 24.3 pg Low 25.2-33.5 [facility] Comment on above: Performed By: #### C DP #### [address] [address] #### TROPI, BMP #### [address] [place] [address] MCHC mass conc (RBC) 30.2 g/dL Normal 28.4-34.8 [facility] Comment on above: Performed By: #### C DP #### [address] [address] #### TROPI, BMP #### [address] [place] [address] MCV Entitic volume (RBC) 80.7 fL Low 82.6-102.9 [facility] Comment on above: Performed By: #### C DP #### [address] [address] #### TROPI, BMP #### [address] [place] [address] Monocytes #/vol (Bld) 0.45 10*3/uL Normal 0.10-1.20 [facility] Comment on above: Performed By: #### C DP #### [address] [address] #### TROPI, BMP #### [address] [place] [id number] Monocytes/100 WBC (Bld) 6 % Normal 3-12 [facility] Comment on above: Performed By: #### C DP #### [address] [address] #### TROPI, BMP #### [address] [place] [id number] Neutrophil (Seg) 65 % Normal 36-65 [facility] Comment on above: Performed By: #### C DP #### [address] [address] #### TROPI, BMP #### [address] [place] [address] NRBC Automated 0.0 per 100 WBC Normal 0.0 [facility] Comment on above: Performed By: #### C DP #### [address] [address] #### TROPI, BMP #### [address] [place] [id number] Platelet mean volume Entitic volume (Bld) 10.5 fL Normal 8.1-13.5 [facility] Comment on above: Performed By: #### C DP #### [address] [address] #### TROPI, BMP #### [address] [place] [address] Platelets #/vol (Bld) 258 10*3/uL Normal 138-453 [facility] Comment on above: Performed By: #### C DP #### [address] [address] #### TROPI, BMP #### [address] [place] [address] RBC #/vol (Bld) 4.60 10*6/uL Normal 3.95-5.11 [facility] Comment on above: Performed By: #### C DP #### [address] [address] #### TROPI, BMP #### [address] [place] [address] WBC #/vol (Bld) 7.9 10*3/uL Normal 3.5-11.3 [facility] Comment on above: Performed By: #### C DP #### [address] [address] #### TROPI, BMP #### [address] [place] [address] Auto Diff Performed NOT REPORTED Normal [facility] Comment on above: Performed By: #### C DP #### [address] [address] #### TROPI, BMP #### [address] [place] [address] Platelets #/vol (Bld) NOT REPORTED Normal [facility] Comment on above: Performed By: #### C DP #### [address] [address] #### TROPI, BMP #### [address] [place] [address] RBC morphology finding Nom (Bld) NOT REPORTED Normal [facility] Comment on above: Performed By: #### C DP #### [address] [address] #### TROPI, BMP #### [address] [place] [address] WBC Morphology NOT REPORTED Normal [facility] Comment on above: Performed By: #### C DP #### [address] [address] #### TROPI, BMP #### [address] [place] [address] Comp Metabolic Pr/rfx MGon 0 02-08-2019 Potassium molar conc 3.5 mmol/L Low 3.7-5.3 [facility] Comment on above: Performed By: #### C DP #### [address] [address] #### TROPI, BMP #### [address] [place] [address] (cont.) Normal [facility] Comment on above: Result Comment: Aver age GFR for 30-39 years old: 107 mL/min/1.73sq m Chronic Kidney Disease: <60 mL/min/1.73sq m Kidney failure: <15 mL/min/1.73sq m eGFR calculated using average adult body mass. Additional eGFR calculator available at: http://www.Veritract.Besstech/multiple_crcl_2012.htm Performed By: #### C DP #### [address] [address] #### TROPI, BMP #### [address] [place] [address] Albumin mass conc 4.0 g/dL Normal 3.5-5.2 [facility] Comment on above: Performed By: #### C DP #### [address] [address] #### TROPI, BMP #### [address] [place] [address] Albumin/Globulin mass ratio 1.2 {ratio} Normal 1.0-2.5 [facility] Comment on above: Performed By: #### C DP #### [address] [address] #### TROPI, BMP #### [address] [place] [address] Alkaline Phos 88 U/L Normal 35-104 [facility] Comment on above: Performed By: #### C DP #### [address] [address] #### TROPI, BMP #### [address] [place] [address] ALT enzyme act/vol 9 U/L Normal 5-33 [facility] Comment on above: Performed By: #### C DP #### [address] [address] #### TROPI, BMP #### [address] [place] [address] Anion gap molar conc 11 mmol/L Normal 9-17 [facility] Comment on above: Performed By: #### C DP #### [address] [address] #### TROPI, BMP #### [address] [place] [address] AST enzyme act/vol 10 U/L Normal <32 [facility] Comment on above: Performed By: #### C DP #### [address] [address] #### TROPI, BMP #### [address] [place] [address] Bilirubin Ql (U) 0.66 mg/dL Normal 0.3-1.2 [facility] Comment on above: Performed By: #### C DP #### [address] [address] #### TROPI, BMP #### [address] [place] [address] BUN/CRE Ratio 11 Normal 9-20 [facility] Comment on above: Performed By: #### C DP #### [address] [address] #### TROPI, BMP #### [address] [place] [address] Calcium mass conc 9.4 mg/dL Normal 8.6-10.4 [facility] Comment on above: Performed By: #### C DP #### [address] [address] #### TROPI, BMP #### [address] [place] [address] Chloride molar conc 104 mmol/L Normal 98-107 [facility] Comment on above: Performed By: #### C DP #### [address] [address] #### TROPI, BMP #### [address] [place] [address] CO2 molar conc 26 mmol/L Normal 20-31 [facility] Comment on above: Performed By: #### C DP #### [address] [address] #### TROPI, BMP #### [address] [place] [address] Creatinine mass conc 0.74 mg/dL Normal 0.50-0.90 [facility] Comment on above: Performed By: #### C DP #### [address] [address] #### TROPI, BMP #### [address] [place] [address] GFR, Amer >60 Normal >60 [facility] Comment on above: Performed By: #### C DP #### [address] [address] #### TROPI, BMP #### [address] [place] [address] GFR,non Amer >60 Normal >60 [facility] Comment on above: Performed By: #### C DP #### [address] [address] #### TROPI, BMP #### [address] [place] [address] Glucose mass conc 115 mg/dL High 70-99 [facility] Comment on above: Performed By: #### C DP #### [address] [address] #### TROPI, BMP #### [address] [place] [address] Protein mass conc 7.3 g/dL Normal 6.4-8.3 [facility] Comment on above: Performed By: #### C DP #### [address] [address] #### TROPI, BMP #### [address] [place] [address] Sodium molar conc 141 mmol/L Normal 135-144 [facility] Comment on above: Performed By: #### C DP #### [address] [address] #### TROPI, BMP #### [address] [place] [address] Staging: Normal [facility] Comment on above: Result Comment: Stag e 1: Some kidney damage normal GFR Stage 2: Mild kidney damage GFR 60-89 Stage 3: Moderate kidney damage GFR 30-59 Stage 4: Severe kidney damage GFR 15-29 Stage 5: Severe kidney damage GFR <15 ESRD - chronic treatment by dialysis or transplant Performed By: #### C DP #### [address] [address] #### TROPI, BMP #### [address] [place] [address] Urea nitrogen mass conc 8 mg/dL Normal 6-20 [facility] Comment on above: Performed By: #### C DP #### [address] [address] #### TROPI, BMP #### [address] [place] [address] HCG, ,Urineon 02-08 HCG.beta subunit ( test) Ql (U) Negative Normal NEG [facility] Comment on above: Result Comment: Spec imens with hCG levels near the threshold of the test (25 mIU/mL) may give a negative or indeterminate result. In such cases, another test should be performed with a new specimen in 48-72 hours. If early is suspected clinically in this setting, correlation with quantitative serum b-hCG level is suggested. [facility] has confirmed the use of plasma for this test. This has not been cleared or approved by the U.[place]. Food and Drug Administration. The FDA has determined that such clearance is not necessary. Performed By: #### C DP #### [address] [address] #### TROPI, BMP #### [address] [place] [address] Magnesiumon 02-08-2019 Magnesium mass conc 2.0 mg/dL Normal 1.6-2.6 [facility] Comment on above: Performed By: #### C DP #### [address] [address] #### TROPI, BMP #### [address] [place] [address] Sedimentation Rateon 019 Sedimentation Rate 36 mm High 0-20 [facility] Comment on above: Performed By: #### C DP #### [address] [address] #### TROPI, BMP #### [address] [place] [address] Urinalysis, Routineon 2018 Acetoacetic Acid,Ur Negative Normal NEG [facility] Comment on above: Performed By: #### C DP #### [address] [address] #### TROPI, BMP #### [address] [place] [address] Bilirubin, SemiQt,Ur Negative Normal NEG [facility] Comment on above: Performed By: #### C DP #### [address] [address] #### TROPI, BMP #### [address] [place] [address] Color Nom (U) YELLOW Normal L [facility] Comment on above: Performed By: #### C DP #### [address] [address] #### TROPI, BMP #### [address] [place] [address] Glucose,Semi-qnt,Ur Negative Normal NEG [facility] Comment on above: Performed By: #### C DP #### [address] [address] #### TROPI, BMP #### [address] [place] [address] Hemoglobin, Ur Negative Normal NEG [facility] Comment on above: Performed By: #### C DP #### [address] [address] #### TROPI, BMP #### [address] [place] [address] Leuckocyte Esterase TRACE Abnormal NEG [facility] Comment on above: Performed By: #### C DP #### [address] [address] #### TROPI, BMP #### [address] [place] [address] Nitrite,Ur Negative Normal [facility] Comment on above: Performed By: #### C DP #### [address] [address] #### TROPI, BMP #### [address] [place] [address] PH,Ur 6.0 Normal 5.0-9.0 [facility] Comment on above: Performed By: #### C DP #### [address] [address] #### TROPI, BMP #### [address] [place] [address] Protein mass conc (U) Negative Normal NEG [facility] Comment on above: Performed By: #### C DP #### [address] [place] [address] #### TROPI, BMP #### [address] [place] [address] Spec. [place],Ur <1.005 Low 1.010-1.020 [facility] Comment on above: Performed By: #### C DP #### [address] [address] #### TROPI, BMP #### [address] [place] [address] Turbidity CLEAR Normal CLEAR [facility] Comment on above: Performed By: #### C DP #### [address] [address] #### TROPI, BMP #### [address] [place] [address] Urobilinogen,Ur Normal Normal NORM [facility] Comment on above: Performed By: #### C DP #### [address] [address] #### TROPI, BMP #### [address] [place] [address] Comment NOT REPORTED Normal [facility] Comment on above: Performed By: #### C DP #### [address] [address] #### TROPI, BMP #### [address] [place] [address] Urinalysis,Microon 9 ----- Normal [facility] Comment on above: Performed By: #### C DP #### [address] [address] #### TROPI, BMP #### [address] [place] [address] Bacteria LM.HPF #/area (Urine sed) TRACE Abnormal NONE [facility] Comment on above: Performed By: #### C DP #### [address] [address] #### TROPI, BMP #### [address] [place] [address] Epithelial cells LM.HPF #/area (Urine sed) 5 TO 10 Normal 0-25 [facility] Comment on above: Performed By: #### C DP #### [address] [address] #### TROPI, BMP #### [address] [place] [address] RBC #/vol (U) 0 TO 2 Normal 0-2 [facility] Comment on above: Performed By: #### C DP #### [address] [address] #### TROPI, BMP #### [address] [place] [address] WBC #/vol (U) 0 TO 2 Normal 0-5 [facility] Comment on above: Performed By: #### C DP #### [address] [address] #### TROPI, BMP #### [address] [place] [address] Amorphous sediment LM Ql (Urine sed) NOT REPORTED Normal [facility] Comment on above: Performed By: #### C DP #### [address] [address] #### TROPI, BMP #### [address] [place] [address] Casts LM.LPF #/area (Urine sed) NOT REPORTED Normal [facility] Comment on above: Performed By: #### C DP #### [address] [address] #### TROPI, BMP #### [address] [place] [address] Crystals LM Nom (Urine sed) NOT REPORTED Normal NONE [facility] Comment on above: Performed By: #### C DP #### [address] [address] #### TROPI, BMP #### [address] [place] [address] Epithelial, Renal NOT REPORTED Normal 0 [facility] Comment on above: Performed By: #### C DP #### [address] [address] #### TROPI, BMP #### [address] [place] [address] Mucus Strands NOT REPORTED Normal NONE [facility] Comment on above: Performed By: #### C DP #### [address] [address] #### TROPI, BMP #### [address] [place] [address] Other Observations NOT REPORTED Normal NREQ [facility] Comment on above: Performed By: #### C DP #### [address] [address] #### TROPI, BMP #### [address] [place] [address] Trichomonas NOT REPORTED Normal NONE [facility] Comment on above: Performed By: #### C DP #### [address] [address] #### TROPI, BMP #### [address] [place] [address] Yeast LM Ql (Urine sed) NOT REPORTED Normal NONE [facility] Comment on above: Performed By: #### C DP #### [address] [address] #### TROPI, BMP #### [address] [place] [address] Stool PCR Batteryon 02-06-20 19 Campylobacter sp PCR NEGATIVE: No Campylobacter spp. (jejuni or coli) DNA Detected Normal [facility] Comment on above: Performed By: #### C DP #### [address] [address] #### TROPI, BMP #### [address] [place] [address] E coli enterotox PCR NEGATIVE: No Enterotoxigenic E. coli (ETEC) Heat-labile and heat-stable (LT/ST) Normal [facility] Comment on above: Result Comment: DNA Detected Performed By: #### C DP #### [address] [address] #### TROPI, BMP #### [address] [place] [address] Plesiomonas sp PCR Negative Normal [facility] Comment on above: Performed By: #### C DP #### [address] [address] #### TROPI, BMP #### [address] [place] [address] Salmonella sp PCR Negative Normal SALNEG [facility] Comment on above: Performed By: #### C DP #### [address] [address] #### TROPI, BMP #### [address] [place] [address] Shigatoxin gene PCR Negative Normal [facility] Comment on above: Performed By: #### C DP #### [address] [address] #### TROPI, BMP #### [address] [place] [address] Vibrio sp PCR NEGATIVE: No Vibrio (V. vulnificus, V, parahaemolyticus and V. cholerae) DNA Normal [facility]IBNE[facility] Comment on above: Result Comment: Dete cted Performed By: #### C DP #### [address] [address] #### TROPI, BMP #### [address] [place] [address] Yersinia gene PCR Negative [facility] Comment on above: Performed By: #### C DP #### [address] [address] #### TROPI, BMP #### [address] [place] [address] C diff Ag + Toxinon 02-05-20 19 C diff Ag + Toxin Negative [facility] Comment on above: Performed By: #### C DP #### [address] [address] #### TROPI, BMP #### [address] [place] [address] Specimen Description .FECES Normal [facility] Comment on above: Performed By: #### C DP #### [address] [address] #### TROPI, BMP #### [address] [place] [address] CBCon 02-04-2019 Erythrocyte distribution width Ratio (RBC) 15.9 % High 11.8-14.4 [facility] Comment on above: Performed By: #### C P, CBC #### [address] [place], [place] [address] [employer]: Eddi Desai MD Hematocrit Volume Fraction (Bld) 36.8 % Normal 36.3-47.1 [facility] Comment on above: Performed By: #### C P, CBC #### [address] [place], [place] [address] [employer]: Eddi Desai MD Hemoglobin mass conc (Bld) 11.2 g/dL Low 11.9-15.1 [facility] Comment on above: Performed By: #### C P, CBC #### [address] [place], [place] [id number] [employer]: Eddi Desai MD MCH Entitic mass (RBC) 24.1 pg Low 25.2-33.5 [facility] Comment on above: Performed By: #### C P, CBC #### [address] [place], [place] [id number] [employer]: Eddi Desai MD MCHC mass conc (RBC) 30.4 g/dL Normal 28.4-34.8 [facility] Comment on above: Performed By: #### C P, CBC #### [address] [place], [place] [id number] [employer]: Eddi Desai MD MCV Entitic volume (RBC) 79.3 fL Low 82.6-102.9 [facility] Comment on above: Performed By: #### C P, CBC #### [address] [place], [place] [id number] [employer]: Eddi Desai MD NRBC Automated 0.0 per 100 WBC Normal 0.0 [facility] Comment on above: Performed By: #### C P, CBC #### [facility] [address] [place], [place] [address] [employer]: Eddi Desai MD Platelet mean volume Entitic volume (Bld) 10.4 fL Normal 8.1-13.5 [facility] Comment on above: Performed By: #### C P, CBC #### [facility] [address] [place], [place] [address] [employer]: Eddi Desai MD Platelets #/vol (Bld) 278 10*3/uL Normal 138-453 [facility] Comment on above: Performed By: #### C P, CBC #### [facility] [address] [place] [address] [employer]: Eddi Desai MD RBC #/vol (Bld) 4.64 10*6/uL Normal 3.95-5.11 [facility] Comment on above: Performed By: #### C P, CBC #### [facility] [address] [place], [facility] [employer]: Eddi Desai MD WBC #/vol (Bld) 11.8 10*3/uL High 3.5-11.3 [facility] Comment on above: Performed By: #### C P, CBC #### [facility] [address] [place], [facility] [employer]: Eddi Desai MD Comp Metabolic Profon 2018 (cont.) Normal [facility] Comment on above: Result Comment: Aver age GFR for 30-39 years old: 107 mL/min/1.73sq m Chronic Kidney Disease: <60 mL/min/1.73sq m Kidney failure: <15 mL/min/1.73sq m eGFR calculated using average adult body mass. Additional eGFR calculator available at: http://www.Veritract.Besstech/multiple_crcl_2011.htm Performed By: #### C P, CBC #### [facility] [address] [place], [place] [id number] [employer]: Eddi Desai MD Albumin mass conc 3.9 g/dL Normal 3.5-5.2 [facility] Comment on above: Performed By: #### C P, CBC #### [facility] [address] [place], [place] [phone] [employer]: Eddi Desai MD Albumin/Globulin mass ratio 1.1 {ratio} Normal 1.0-2.5 [facility] Comment on above: Performed By: #### C P, CBC #### [facility] [address] [place], [place] [id number] [employer]: Eddi Desai MD Alkaline Phos 83 U/L Normal 35-104 [facility] Comment on above: Performed By: #### C P, CBC #### [facility] [address] [place], [place] [id number] [employer]: Eddi Desai MD ALT enzyme act/vol 12 U/L Normal 5-33 [facility] Comment on above: Performed By: #### C P, CBC #### [facility] [address] [place], [place] [id number] [employer]: Eddi Desai MD Anion gap molar conc 14 mmol/L Normal 9-17 [facility] Comment on above: Performed By: #### C P, CBC #### [facility] [address] [place], [place] [address] [employer]: Eddi Desai MD AST enzyme act/vol 12 U/L Normal <32 [facility] Comment on above: Performed By: #### C P, CBC #### [facility] [address] [place], [place] [id number] [employer]: Eddi Desai MD Bilirubin Ql (U) 0.55 mg/dL Normal 0.3-1.2 [facility] Comment on above: Performed By: #### C P, CBC #### [facility] [address] [place], [place] [phone] [employer]: Eddi Desai MD BUN/CRE Ratio 13 Normal 9-20 [facility] Comment on above: Performed By: #### C P, CBC #### [facility] [address] [place], [place] [phone] [employer]: Eddi Desai MD Calcium mass conc 9.3 mg/dL Normal 8.6-10.4 [facility] Comment on above: Performed By: #### C P, CBC #### [facility] [address] [place], [place] [id number] [employer]: Eddi Desai MD Chloride molar conc 103 mmol/L Normal 98-107 [facility] Comment on above: Performed By: #### C P, CBC #### [facility] [address] [place], [place] [id number] [employer]: Eddi Desai MD CO2 molar conc 22 mmol/L Normal 20-31 [facility] Comment on above: Performed By: #### C P, CBC #### [facility] [address] [place], [place] [id number] [employer]: Eddi Desai MD Creatinine mass conc 0.80 mg/dL Normal 0.50-0.90 [facility] Comment on above: Performed By: #### C P, CBC #### [facility] [address] [place] [address] [employer]: Eddi Desai MD GFR, Amer >60 Normal >60 [facility] Comment on above: Performed By: #### C P, CBC #### [facility] [address] [place], [place] [phone] [employer]: Eddi Desai MD GFR,non Amer >60 Normal >60 [facility] Comment on above: Performed By: #### C P, CBC #### [facility] [address] [place], [place] [id number] [employer]: Eddi Desai MD Glucose mass conc 99 mg/dL Normal 70-99 [facility] Comment on above: Performed By: #### C P, CBC #### [facility] [address] [place], [place] [id number] [employer]: Eddi Desai MD Potassium molar conc 3.5 mmol/L Low 3.7-5.3 [facility] Comment on above: Performed By: #### C P, CBC #### [facility] [address] [place], [place] [phone] [employer]: Eddi Desai MD Protein mass conc 7.5 g/dL Normal 6.4-8.3 [facility] Comment on above: Performed By: #### C P, CBC #### [facility] [address] [place], [place] [phone] [employer]: Eddi Desai MD Sodium molar conc 139 mmol/L Normal 135-144 [facility] Comment on above: Performed By: #### C P, CBC #### [facility] [address] [place], [place] [id number] [employer]: Eddi Desai MD Staging: Normal [facility] Comment on above: Result Comment: Stag e 1: Some kidney damage normal GFR Stage 2: Mild kidney damage GFR 60-89 Stage 3: Moderate kidney damage GFR 30-59 Stage 4: Severe kidney damage GFR 15-29 Stage 5: Severe kidney damage GFR <15 ESRD - chronic treatment by dialysis or transplant Performed By: #### C P, CBC #### [facility] [address] [place], [place] [phone] [employer]: Eddi Desai MD Urea nitrogen mass conc 10 mg/dL Normal 6-20 [facility] Comment on above: Performed By: #### C P, CBC #### [facility] [address] [place], [place] [phone] [employer]: Eddi Desai MD Drug Scr, Abuse, Uron 2018 Amphetamine(s),Ur Negative Normal NEG [facility] Comment on above: Performed By: #### U HCG, LANE, UMICAO, UAX #### [facility] [address] [place], [facility] [employer]: Eddi Desai MD Barbiturate(s),Ur Negative Normal NEG [facility] Comment on above: Performed By: #### U HCG, LANE, UMICAO, UAX #### [facility] [address] [place] [id number] [employer]: Eddi Desai MD Base excess Calculated molar conc (Bld) Negative Normal NEG [facility] Comment on above: Performed By: #### U HCG, LANE, UMICAO, UAX #### [facility] [address] [place], [facility] [employer]: Eddi Desai MD Benzodiazepine(s) Negative Normal NEG [facility] Comment on above: Performed By: #### U HCG, LANE, UMICAO, UAX #### [facility] [address] [place], [place] [phone] [employer]: Eddi Desai MD Buprenorphrine, Ur Negative Normal NEG [facility] Comment on above: Performed By: #### U HCG, LANE, UMICAO, UAX #### [facility] [address] [place], [place] [phone] [employer]: Eddi Desai MD Cannabinoid(s),Ur Positive Abnormal NEG [facility] Comment on above: Performed By: #### U HCG, LANE, UMICAO, UAX #### [facility] [address] [place] [address] [employer]: Eddi Desai MD Methadone Ql (U) Negative Normal [facility] Comment on above: Performed By: #### U HCG, LANE, UMICAO, UAX #### [facility] [address] [place], [place] [id number] [employer]: Eddi Desai MD Methamphetamine, Ur Negative Normal [facility] Comment on above: Performed By: #### U HCG, LANE, UMICAO, UAX #### [facility] [address] [place], [place] [id number] [employer]r: Eddi Desai MD Opiate(s), Ur Negative Normal [facility] Comment on above: Performed By: #### U HCG, LANE, UMICAO, UAX #### [facility] [address] [place], [place] [id number] [employer]r: Eddi Desai MD Oxycodone, Urine Negative Normal [facility] Comment on above: Performed By: #### U HCG, LANE, UMICAO, UAX #### [facility] [address] [place] [address] [address] [place], [place] [id number] [employer]r: Eddi Desai MD Phencyclidine, Ur Negative Normal [facility] Comment on above: Performed By: #### U HCG, LANE, UMICAO, UAX #### [facility] [address] [place] [address] [address] [place], [place] [id number] [employer]: Eddi Desai MD Protein mass conc (U) Negative Normal [facility] Comment on above: Performed By: #### U HCG, LANE, UMICAO, UAX #### [facility] [address] [place] [address] [employer]r: Eddi Desai MD Tricyclic antidepressants Screen Ql (U) Negative Normal [facility] Comment on above: Result Comment: Drug screen results are to be used for medical purposes only. All positive results are unconfirmed. Testing for employment or legal uses should be sent to a reference laboratory for confirmation. Performed By: #### U HCG, LANE, UMICAO, UAX #### [facility] [address] [place] [address] [employer]r: Eddi Desai MD Interpretive Info NOT REPORTED Normal [facility] Comment on above: Performed By: #### U HCG, LANE, UMICAO, UAX #### [facility] [address] [place] [address] [employer]r: Eddi Desai MD MDMA, Urine NOT REPORTED Normal NEG [facility] Comment on above: Performed By: #### U HCG, LANE, UMICAO, UAX #### [facility] [address] [place] [address] [employer]r: Eddi Desai MD HCG, ,Urineon 02-04 HCG.beta subunit ( test) Ql (U) Negative Normal NEG [facility] Comment on above: Result Comment: Spec imens with hCG levels near the threshold of the test (25 mIU/mL) may give a negative or indeterminate result. In such cases, another test should be performed with a new specimen in 48-72 hours. If early is suspected clinically in this setting, correlation with quantitative serum b-hCG level is suggested. [facility] has confirmed the use of plasma for this test. This has not been cleared or approved by the U.S. Food and Drug Administration. The FDA has determined that such clearance is not necessary. Performed By: #### U HCG, LANE, UMICAO, UAX #### [facility] [address] [place] [address] [employer]: Eddi Desai MD Lactic Acidon 02-04-2019 Lactate molar conc 1.5 mmol/L Normal 0.5-2.2 [facility] Comment on above: Performed By: #### L ACTIC #### [facility] [address] [place] [address] [employer]r: Eddi Desai MD Lactate molar conc NOT REPORTED Normal 0.7-2.1 [facility] Comment on above: Performed By: #### L ACTIC #### [facility] [address] [place], [place] [id number] [employer]r: Eddi Desai MD UA w/Reflex Cultureon 2018 Acetoacetic Acid,Ur Negative Normal [facility] Comment on above: Performed By: #### U HCG, LANE, UMICAO, UAX #### [facility] [address] [place] [address] [employer]r: Eddi Desai MD Bilirubin.direct mass conc Negative [facility] Comment on above: Performed By: #### U HCG, LANE, UMICAO, UAX #### [facility] [address] [place] [address] [employer]r: Eddi Desai MD Color Nom (U) YELLOW Normal [facility] Comment on above: Performed By: #### U HCG, LANE, UMICAO, UAX #### [facility] [address] [place] [address] [employer]r: Eddi Desai MD Glucose mass conc Negative Normal [facility] Comment on above: Performed By: #### U HCG, LANE, UMICAO, UAX #### [facility] [address] [place] [address] [employer]r: Eddi Desai MD Hemoglobin mass conc (Bld) Negative Normal [facility] Comment on above: Performed By: #### U HCG, LANE, UMICAO, UAX #### [facility] [address] [place], [place] [phone] [employer] Rep[employer]r: Eddi Desai MD Leuckocyte Esterase Negative Normal [facility] Comment on above: Performed By: #### U HCG, LANE, UMICAO, UAX #### [facility] [address] [place] [address] [employer]r: Eddi Desai MD Nitrite,Ur Negative Normal NEG [facility] Comment on above: Performed By: #### U HCG, LANE, UMICAO, UAX #### [facility] [address] [place] [address] [employer]r: Eddi Desai MD PH,Ur 6.0 Normal 5.0-9.0 [facility] Comment on above: Performed By: #### U HCG, LANE, UMICAO, UAX #### [facility] [address] [place], [place] [address] [employer] Rep[employer]r: Eddi Desai MD Protein mass conc Negative Normal NEG [facility] Comment on above: Performed By: #### U HCG, LANE, UMICAO, UAX #### [facility] [address] [place], [place] [address] [employer]r: Eddi Desai MD Spec. [place],Ur 1.010 Normal 1.010-1.020 [facility] Comment on above: Performed By: #### U HCG, LANE, UMICAO, UAX #### [facility] [address] [place], [facility] [employer]r: Eddi Desai MD Turbidity CLEAR Normal CLEAR [facility] Comment on above: Performed By: #### U HCG, LANE, UMICAO, UAX #### [facility] [address] [place], [place] [address] [employer]r: Eddi Desai MD Urobilinogen,Ur Normal Normal NORM [facility] Comment on above: Performed By: #### U HCG, LANE, UMICAO, UAX #### [facility] [address] [place], [place] [phone] [employer]r: Eddi Desai MD Comment NOT REPORTED Normal [facility] Comment on above: Performed By: #### U HCG, LANE, UMICAO, UAX #### [facility] [address] [place] [address] [employer]r: Eddi Desai MD Urinalysis,Microon 9 ----- Normal [facility] Comment on above: Performed By: #### U HCG, LANE, UMICAO, UAX #### [facility] [address] [place] [address] [employer]r: Eddi Desai MD Bacteria LM.HPF #/area (Urine sed) 1+ Abnormal [facility] Comment on above: Performed By: #### U HCG, LANE, UMICAO, UAX #### [address] [place] [address] [employer]r: Eddi Desai MD Epithelial cells LM.HPF #/area (Urine sed) 0 TO 2 Normal 0-25 [facility] Comment on above: Performed By: #### U HCG, LANE, UMICAO, UAX #### [address] [place] [address] [employer]r: Eddi Desai MD RBC #/vol (U) 0 TO 2 Normal 0-2 [facility] Comment on above: Performed By: #### U HCG, LANE, UMICAO, UAX #### [address] [place] [address] [employer]r: Eddi Desai MD WBC #/vol (U) 0 TO 2 Normal 0-5 [facility] Comment on above: Performed By: #### U HCG, LANE, UMICAO, UAX #### [address] [place] [id number] [employer]r: Eddi Desai MD Amorphous sediment LM Ql (Urine sed) NOT REPORTED Normal [facility] Comment on above: Performed By: #### U HCG, LANE, UMICAO, UAX #### [facility] [address] [place] [address] [employer]: Eddi Desai MD Casts LM.LPF #/area (Urine sed) NOT REPORTED Normal [facility] Comment on above: Performed By: #### U HCG, LANE, UMICAO, UAX #### [facility] [address] [place] [address] [employer]: Eddi Desai MD Crystals LM Nom (Urine sed) NOT REPORTED Normal NONE [facility] Comment on above: Performed By: #### U HCG, LANE, UMICAO, UAX #### [facility] [address] [place] [address] [employer]r: Eddi Desai MD Epithelial, Renal NOT REPORTED Normal 0 [facility] Comment on above: Performed By: #### U HCG, LANE, UMICAO, UAX #### [facility] [address] [place] [address] [employer]r: Eddi Desai MD Mucus Strands NOT REPORTED Normal [facility] Comment on above: Performed By: #### U HCG, LANE, UMICAO, UAX #### [facility] [address] [place] [address] [employer]r: Eddi Desai MD Other Observations NOT REPORTED Normal NREQ [facility] Comment on above: Performed By: #### U HCG, LANE, UMICAO, UAX #### [facility] [address] [place] [address] [employer]r: Eddi Desai MD Trichomonas NOT REPORTED Normal NONE [facility] Comment on above: Performed By: #### U HCG, LANE, UMICAO, UAX #### [facility] [address] [place], [place] [phone] [employer]r: Eddi Desai MD Yeast LM Ql (Urine sed) NOT REPORTED Normal NONE [facility] Comment on above: Performed By: #### U HCG, LANE, UMICAO, UAX #### [facility] [address] [place] [address] [employer] Rep[employer]r: Eddi Dseai MD CBC W Auto Differentialon Abs Neut # 4.8 10 X 3/mm Normal 1.8 - 7.7 [facility] Comment on above: Performed By: #### C BC Auto Diff #### [facility] [address] [place] [address] Basophils/100 WBC (Bld) 1 % Normal 0 - 1 [facility] Comment on above: Performed By: #### C BC Auto Diff #### [facility] [address] [place] [address] Eosinophils #/vol (Bld) 0.5 10 X 3/mm Normal 0.0 - 0.5 [facility] Comment on above: Performed By: #### C BC Auto Diff #### [facility] [address] [place] [address] Eosinophils/100 WBC (Bld) 7 % High 0 - 5 [facility] Comment on above: Performed By: #### C BC Auto Diff #### [facility] [address] [place] [address] Erythrocyte distribution width Ratio (RBC) 16.3 % High 11.5 - 14.5 [facility] Comment on above: Performed By: #### C BC Auto Diff #### [facility] [address] [place] [address] Hematocrit Volume Fraction (Bld) 35.1 % Low 36.0 - 47.0 [facility] Comment on above: Performed By: #### C BC Auto Diff #### [facility] [address] [place] [address] Hemoglobin mass conc (Bld) 11.1 g/dL Low 12.0 - 16.0 [facility] Comment on above: Performed By: #### C BC Auto Diff #### [facility] [address] [place] [address] Lymphocytes #/vol (Bld) 2.3 10 X 3/mm Normal 1.0 - 4.0 [facility] Comment on above: Performed By: #### C BC Auto Diff #### [place] [address] [place] [address] Lymphocytes/100 WBC (Bld) 29 % Normal 20 - 40 [facility] Comment on above: Performed By: #### C BC Auto Diff #### [place] [address] [place] [address] MCH Entitic mass (RBC) 24.0 pg Low 27.0 - 35.0 [facility] Comment on above: Performed By: #### C BC Auto Diff #### [facility] [address] [place] [address] MCHC mass conc (RBC) 31.6 g/dL Low 32.0 - 36.0 [facility] Comment on above: Performed By: #### C BC Auto Diff #### [facility] [address] [place] [address] MCV Entitic volume (RBC) 76.2 fL Low 80.0 - 100.0 [facility] Comment on above: Performed By: #### C BC Auto Diff #### [facility] [address] [place] [address] Monocytes/100 WBC (Bld) 6 % Normal 1 - 15 [facility] Comment on above: Performed By: #### C BC Auto Diff #### [facility] [address] [place] [address] Neutrophils/100 WBC (Bld) 59 % Normal 50 - 70 [facility] Comment on above: Performed By: #### C BC Auto Diff #### [facility] [address] [place] [address] Platelet mean volume Entitic volume (Bld) 8.7 fL Normal 7.5 - 11.5 [facility] Comment on above: Performed By: #### C BC Auto Diff #### [place] [address] [place] [address] Platelets #/vol (Bld) 261 uLx10 Normal 150 - 450 [facility] Comment on above: Performed By: #### C BC Auto Diff #### [place] [address] [place] [address] RBC #/vol (Bld) 4.61 10 X 6/mm Normal 4.20 - 5.40 [facility] Comment on above: Performed By: #### C BC Auto Diff #### [address] [place] [address] WBC #/vol (Bld) 8.2 10 X 3/mm Normal 3.7 - 11.[address] [facility] Comment on above: Performed By: #### C BC Auto Diff #### [address] [address] Comprehensive Metabolic Pane [place]ille 01-20-2019 GFR/1.73 sq M predicted among non-blacks MDRD vol rate/area (S/P/Bld) 118.3 Normal [facility] Comment on above: Result Comment: eGFR Interpretation: Normal: Equal to or greater than 60 mL/min/1.73 meters squared Chronic Kidney Disease: Less than 60 mL/min/1.73 meters squared Kidney Failure: Less than 15 mL/min/1.73 meters squared Performed By: #### C MP #### [address] [place] [address] GFR/1.73 sq M predicted among non-blacks MDRD vol rate/area (S/P/Bld) 163.17 Normal [facility] Comment on above: Result Comment: eGFR Interpretation: Normal: Equal to or greater than 60 mL/min/1.73 meters squared Chronic Kidney Disease: Less than 60 mL/min/1.73 meters squared Kidney Failure: Less than 15 mL/min/1.73 meters squared Performed By: #### C MP #### [facility] [address] [place] [address] GFR/1.73 sq M predicted among non-blacks MDRD vol rate/area (S/P/Bld) 128.94 Normal [facility] Comment on above: Result Comment: eGFR Interpretation: Normal: Equal to or greater than 60 mL/min/1.73 meters squared Chronic Kidney Disease: Less than 60 mL/min/1.73 meters squared Kidney Failure: Less than 15 mL/min/1.73 meters squared Performed By: #### C MP #### [place] [address] [place] [address] GFR/1.73 sq M predicted among non-blacks MDRD vol rate/area (S/P/Bld) 122.98 Normal [facility] Comment on above: Result Comment: eGFR Interpretation: Normal: Equal to or greater than 60 mL/min/1.73 meters squared Chronic Kidney Disease: Less than 60 mL/min/1.73 meters squared Kidney Failure: Less than 15 mL/min/1.73 meters squared Performed By: #### C MP #### [facility] [address] [place] [address] GFR/1.73 sq M predicted among non-blacks MDRD vol rate/area (S/P/Bld) 136.41 Normal [facility] Comment on above: Performed By: #### C MP #### [facility] [address] [place] [address] GFR/1.73 sq M predicted among non-blacks MDRD vol rate/area (S/P/Bld) 188.63 Normal [facility] Comment on above: Performed By: #### C MP #### [facility] [address] [place] [address] GFR/1.73 sq M predicted among non-blacks MDRD vol rate/area (S/P/Bld) 149.05 Normal [facility] Comment on above: Performed By: #### C MP #### [facility] [address] [place] [address] GFR/1.73 sq M predicted among non-blacks MDRD vol rate/area (S/P/Bld) 141.77 Normal [facility] Comment on above: Performed By: #### C MP #### [place] [address] [place] [address] Age Reported 28 year(s) Normal [facility] Comment on above: Performed By: #### C MP #### [facility] [address] [place] [address] Albumin mass conc 3.9 g/dL Normal 3.5 - 5.0 [facility] Comment on above: Performed By: #### C MP #### [facility] [address] [place] [address] ALP enzyme act/vol 81 U/L Normal 38 - [address] [facility] Comment on above: Performed By: #### C MP #### [facility] [address] [place] [address] ALT enzyme act/vol 39 U/L High 0 - [address] [facility] Comment on above: Performed By: #### C MP #### [facility] [address] [place] [address] AST enzyme act/vol 30 U/L Normal 14 - [address] [facility] Comment on above: Performed By: #### C MP #### [facility] [address] [place] [address] Bilirubin mass conc 0.6 mg/dL Normal 0.2 - 1.3 [facility] Comment on above: Performed By: #### C MP #### [facility] [address] [place] [address] Calcium mass conc 8.6 mg/dL Normal 8.4 - 10.2 [facility] Comment on above: Performed By: #### C MP #### [facility] [address] [place] [address] Chloride molar conc 105 mmol/L Normal 98 - 107 [facility] Comment on above: Performed By: #### C MP #### [facility] [address] [place] [address] CO2 molar conc 23 mmol/L Normal 22 - 32 [facility] Comment on above: Performed By: #### C MP #### [facility] [address] [place] [address] Creatinine mass conc 0.67 mg/dL Normal 0.52 - 1.04 [facility] Comment on above: Performed By: #### C MP #### [facility] [address] [place] [address] Glucose mass conc 81 mg/dL Normal 65 - 100 [facility] Comment on above: Performed By: #### C MP #### [facility] [address] [place] [address] Potassium molar conc 3.9 mmol/L Normal 3.6 - 5.0 [facility] Comment on above: Performed By: #### C MP #### [facility] [address] [place] [address] Protein mass conc 7.3 g/dL Normal 6.3 - 8.2 [facility] Comment on above: Performed By: #### C MP #### [facility] [address] [place] [address] Sodium molar conc 139 mmol/L Normal 135 - 145 [facility] Comment on above: Performed By: #### C MP #### [facility] [address] [place] [address] Urea nitrogen mass conc 5 mg/dL Low 7 - 17 [facility] Comment on above: Performed By: #### C MP #### [facility] [address] [place] [address] Age at specimen collection = Normal [facility] Comment on above: Performed By: #### C MP #### [facility] [address] [place] [address] Performed By: #### C BC Auto Diff #### [address] [address] FERRITINon 11-08-2018 Ferritin mass conc 10 ng/mL Normal 6.24-137 [facility] Comment on above: Result Comment: SARAH ENOPAUSAL FEMALES 6.9-282.5 POSTMENOPAUSAL FEMALES 14.0-233.1 Performed By: #### F EPRO, FRTN, B12, AFOL ####Testing performed at [address] [address] FOLATEon 11-08-2018 FOLATE 12.0 NG/ML Normal 2.56-20.0 [facility] Comment on above: Performed By: #### F EPRO, FRTN, B12, AFOL ####Testing performed at [address] [address] IRON PROFILEon 11-08-2018 IRON BINDING 416 UG/DL Normal 250-450 [facility] Comment on above: Performed By: #### F EPRO, FRTN, B12, AFOL ####Testing performed at [address] [address] TRANSFERRIN SATURATION,CALCULATED 13 % Normal [facility] Comment on above: Performed By: #### F EPRO, FRTN, B12, AFOL ####Testing performed at [address] [address] Iron mass conc 53 ug/dL Normal 37-170 [facility] Comment on above: Performed By: #### F EPRO, FRTN, B12, AFOL ####Testing performed at [address] [address] VITAMIN B12on 11-08-2018 Cobalamin (Vitamin B12) mass conc 351 pg/mL Normal 239-931 [facility] Comment on above: Performed By: #### F EPRO, FRTN, B12, AFOL ####Testing performed at [address] [address] BHCG,QUANTITATIVEon 10-07-20 18 BHCG,QUANTITATIVE <2.39 Normal [facility] Comment on above: Result Comment: BHCG INTERPRETIVE [...] qualitative hCG testing of urine.Testing performed at [place] [address] Performed By: #### B HCG2 ####Testing performed at [facility] [place] [address] POCT URINE PREGNANCYon 10-07 HCG.beta subunit Qn Invalid Interpretation Code [facility] Work Phone: Interpretation and review of laboratory results Normal Invalid Interpretation Code [facility] Work Phone: [place] REMOVE INTRAUTERINE DEVIC Brian 10-07-2018 Joseph Renteria DO 10/07 1:25 PM IUD REMOVAL PROCEDURE PERFORMED BY: Joseph Renteria DO FOUNTAIN ATTENDANT(S): None ATTENDING: Joseph Renteria DO PROCEDURE DATE: [...] THIS PROCEDURE REQUIRE A UNIVERSAL PROTOCOL? Yes. [place]well Protocol is required Preprocedure verification is complete [...] 6 months. Periods may become shorter and/or quality improvement coordinator (rn) thereafter. Cycles may remain irregular, become infrequent, or even cease. Consider as fertility is rapidly returned after removal of an IUD Questions have been answered. Informed consent has been obtained. Cervix was prepped with betadine x 3. IUD strings were visualized and IUD removed in whole in the usual fashion utilizing gentle traction with a Elsy needle stock driver. SPECIMEN(S) REMOVED: none DISPOSITION OF SPECIMEN(S): N/A ESTIMATED BLOOD LOSS: None ESTIMATED FLUIDS: No crystalloid, colloid or blood products given.. FINDINGS: unremarkable contour of 8 cm uterus, unremarkable adenexa Brand: Radha CONDITION: Stable. Patient tolerated procedure well. COMPLICATIONS: None. Good hemostasis obtained. PLAN: Follow up prn Invalid Interpretation Code [facility] Work Phone: Cult,Bloodon 09-20-2018 Cult,Blood Specimen Description .BLOOD Special Requests 10 ML LEFT FOREARM Culture NO GROWTH 6 DAYS Report Status FINAL 09/20/2018 Normal [facility] Comment on above: Performed By: #### U A, KAELYNO #### [facility] [address] [place] [address] CHLAM/GC AMPLIFon 09-17-2018 CHLAMYDIA NUC. AMP Negative Normal Negative [facility] GONOCOCCUS NUC. AMP Negative Normal Negative [facility] Comment on above: Result Comment: PERF ORMED AT [facility] Cult,Urineon 09-15-2018 Cult,Urine Specimen Description .URINE, [place] Special Requests NOT REPORTED Culture NO SIGNIFICANT GROWTH Report Status FINAL 09/15/2018 Normal [facility] Comment on above: Performed By: #### U A, UMICAO #### [facility] [address] [place] [address] TESTOSTER.FREE-TOTALon 09-15 FREE TESTOSTERONE 0.9 pg/mL Normal 0.0-4.2 [facility] Comment on above: Result Comment: PERF ORMED AT [facility] Performed By: #### A CBC, CHEM7F, BHCG2 ####Testing performed at [facility] [place] [address] Amylaseon 09-14-2018 Amylase enzyme act/vol 31 U/L Normal 28-100 [facility] Comment on above: Performed By: #### C DP, HCG, LACTIC, ISABEL, CP, LIP #### [facility] [address] [place] [address] CBC with Diffon 09-14-2018 Abs. Basophil 0.00 k/uL Normal 0.0-0.2 [facility] Comment on above: Performed By: #### C DP, HCG, LACTIC, ISABEL, CP, LIP #### [place] [address] Abs.Neutrophil (Seg) 6.10 k/uL Normal 2.5-7.0 [facility] Comment on above: Performed By: #### C DP, HCG, LACTIC, ISABEL, CP, LIP #### [place] [address] Auto Diff Performed YES Normal [facility] Comment on above: Performed By: #### C DP, HCG, LACTIC, ISABEL, CP, LIP #### [place] [address] Basophils/100 WBC (Bld) 0 % Normal 0-2 [facility] Comment on above: Performed By: #### C DP, HCG, LACTIC, ISABEL, CP, LIP #### [place] [address] Eosinophils #/vol (Bld) 0.00 10*3/uL Normal 0.0-0.4 [facility] Comment on above: Performed By: #### C DP, HCG, LACTIC, ISABEL, CP, LIP #### [place] [address] Eosinophils/100 WBC (Bld) 0 % Normal 0-5 [facility] Comment on above: Performed By: #### C DP, HCG, LACTIC, ISABEL, CP, LIP #### [place] [address] Erythrocyte distribution width Ratio (RBC) 16.9 % High 12.1-15.2 [facility] Comment on above: Performed By: #### C DP, HCG, LACTIC, ISABEL, CP, LIP #### [place] [address] Hematocrit Volume Fraction (Bld) 31.0 % Low 36-46 [facility] Comment on above: Performed By: #### C DP, HCG, LACTIC, ISABEL, CP, LIP #### [place] [address] Hemoglobin mass conc (Bld) 10.1 g/dL Low 12.0-16.0 [facility] Comment on above: Performed By: #### C DP, HCG, LACTIC, ISABEL, CP, LIP #### [place] [address] Lymphocytes #/vol (Bld) 2.10 10*3/uL Normal 1.0-4.8 [facility] Comment on above: Performed By: #### C DP, HCG, LACTIC, ISABEL, CP, LIP #### [place] [address] Lymphocytes/100 WBC (Bld) 24 % Normal 15-40 [facility] Comment on above: Performed By: #### C DP, HCG, LACTIC, ISABEL, CP, LIP #### [place] [address] MCH Entitic mass (RBC) 25.0 pg Low 26-34 [facility] Comment on above: Performed By: #### C DP, HCG, LACTIC, ISABEL, CP, LIP #### [place] [address] MCHC mass conc (RBC) 32.6 g/dL Normal 31-37 [facility] Comment on above: Performed By: #### C DP, HCG, LACTIC, ISABEL, CP, LIP #### [place] [address] MCV Entitic volume (RBC) 76.6 fL Low 80-100 [facility] Comment on above: Performed By: #### C DP, HCG, LACTIC, ISABEL, CP, LIP #### [place] [address] Monocytes #/vol (Bld) 0.40 10*3/uL Normal 0.0-1.0 [facility] Comment on above: Performed By: #### C DP, HCG, LACTIC, ISABEL, CP, LIP #### [facility] [address] [place] [address] Monocytes/100 WBC (Bld) 5 % Normal 4-8 [facility] Comment on above: Performed By: #### C DP, HCG, LACTIC, ISABEL, CP, LIP #### [facility] [address] [place] [address] Neutrophil (Seg) 71 % Normal 47-75 [facility] Comment on above: Performed By: #### C DP, HCG, LACTIC, ISABEL, CP, LIP #### [place] [address] Platelets #/vol (Bld) 499 10*3/uL High 140-450 [facility] Comment on above: Performed By: #### C DP, HCG, LACTIC, ISABEL, CP, LIP #### [place] [address] RBC #/vol (Bld) 4.05 10*6/uL Normal 4.0-5.2 [facility] Comment on above: Performed By: #### C DP, HCG, LACTIC, ISABEL, CP, LIP #### [place] [address] WBC #/vol (Bld) 8.6 10*3/uL Normal 3.5-11.0 [facility] Comment on above: Performed By: #### C DP, HCG, LACTIC, ISABEL, CP, LIP #### [place] [address] Abs.Imm.Granulocyte NOT REPORTED Normal 0.00-0.30 [facility] Comment on above: Performed By: #### C DP, HCG, LACTIC, ISABEL, CP, LIP #### [facility] [address] [facility] [place] [address] Immature granulocytes #/vol (Bld) NOT REPORTED Normal 0 [facility] Comment on above: Performed By: #### C DP, HCG, LACTIC, ISABEL, CP, LIP #### [facility] [address] [facility] [place] [address] NRBC Automated NOT REPORTED Normal [facility] Comment on above: Performed By: #### C DP, HCG, LACTIC, ISABEL, CP, LIP #### [place] [address] Platelet mean volume Entitic volume (Bld) NOT REPORTED Normal 6.0-12.0 [facility] Comment on above: Performed By: #### C DP, HCG, LACTIC, ISABEL, CP, LIP #### [place] [address] Platelets #/vol (Bld) NOT REPORTED Normal [facility] Comment on above: Performed By: #### C DP, HCG, LACTIC, ISABEL, CP, LIP #### [place] [address] RBC morphology finding Nom (Bld) NOT REPORTED Normal [facility] Comment on above: Performed By: #### C DP, HCG, LACTIC, ISABEL, CP, LIP #### [address] [place] [address] WBC Morphology NOT REPORTED Normal [facility] Comment on above: Performed By: #### C DP, HCG, LACTIC, ISABEL, CP, LIP #### [place] [address] Comp Metabolic Profon 2017 (cont.) Normal [facility] Comment on above: Result Comment: Aver age GFR for 20-29 years old: 116 mL/min/1.73sq m Chronic Kidney Disease: <60 mL/min/1.73sq m Kidney failure: <15 mL/min/1.73sq m eGFR calculated using average adult body mass. Additional eGFR calculator available at: http://www.Veritract.Besstech/multiple_crcl_2012.htm Performed By: #### U A, UMICAO #### [facility] [address] [facility] [place] [address] ([phone]) Albumin mass conc 3.5 g/dL Normal 3.5-5.2 [facility] Comment on above: Performed By: #### U A, UMICAO #### [facility] [address] [facility] [place] [address] (127) Alkaline Phos 87 U/L Normal 35-104 [facility] Comment on above: Performed By: #### U A, UMICAO #### [facility] [address] [facility] [place] [address] (663) ALT enzyme act/vol 6 U/L Normal 5-33 [facility] Comment on above: Performed By: #### U A, UMICAO #### [facility] [address] [facility] [place] [address] ([phone]) Anion gap molar conc 12 mmol/L Normal 9-17 [facility] Comment on above: Performed By: #### U A, UMICAO #### [facility] [address] [facility] [place] [address] ([phone]) AST enzyme act/vol 13 U/L Normal <32 [facility] Comment on above: Performed By: #### U A, UMICAO #### [facility] [address] [facility] [place] [address] Bilirubin Ql (U) 0.42 mg/dL Normal 0.30-1.20 [facility] Comment on above: Performed By: #### U A, UMICAO #### [facility] [address] [facility] [place] [address] ([phone]) BUN/CRE Ratio 8 Low 9-20 [facility] Comment on above: Performed By: #### U KAELYN OrtizO #### [facility] [address] [facility] [place] [address] Calcium mass conc 8.9 mg/dL Normal 8.6-10.4 [facility] Comment on above: Performed By: #### U KAELYN OrtizO #### [facility] [address] [facility] [place] [address] Chloride molar conc 102 mmol/L Normal 98-107 [facility] Comment on above: Performed By: #### U KAELYN OrtizO #### [facility] [address] [facility] [place] [address] CO2 molar conc 25 mmol/L Normal 20-31 [facility] Comment on above: Performed By: #### SAMEERA Carcamo #### [facility] [address] [facility] [place] [address] Creatinine mass conc 0.75 mg/dL Normal 0.50-0.90 [facility] Comment on above: Performed By: #### SAMEERA Carcamo #### [facility] [address] [facility] [place] [address] GFR, Amer >60 Normal >60 [facility] Comment on above: Performed By: #### SAMEERA Carcamo #### [facility] [address] [facility] [place] [address] GFR,non Amer >60 Normal >60 [facility] Comment on above: Performed By: #### KAELYN CarcamoO #### [facility] [address] [facility] [place] [id number] Glucose mass conc 124 mg/dL High 70-99 [facility] Comment on above: Performed By: #### U KAELYN OrtizO #### [facility] [address] [facility] [place] [address] Potassium molar conc 3.3 mmol/L Low 3.7-5.3 [facility] Comment on above: Performed By: #### SAMEERA Carcamo #### [facility] [address] [facility] [place], [place] [id number] ([phone] Protein mass conc 7.4 g/dL Normal 6.4-8.3 [facility] Comment on above: Performed By: #### SAMEERA Carcamo #### [facility] [address] [place] [address] ([phone] Sodium molar conc 139 mmol/L Normal 135-144 [facility] Comment on above: Performed By: #### SAMEERA Carcamo #### [facility] [address] [place] [address] (135 Urea nitrogen mass conc 6 mg/dL Normal 6-20 [facility] Comment on above: Performed By: #### SAMEERA Carcamo #### [facility] [address] [place] [address] ([phone]) Albumin/Globulin mass ratio NOT REPORTED Normal 1.0-2.5 [facility] Comment on above: Performed By: #### SAMEERA Carcamo #### [facility] [address] [place] [address] ([phone] Staging: NOT REPORTED Normal [facility] Comment on above: Performed By: #### SAMEERA Carcamo #### [facility] [address] [place] [address] ([phone]) HCG Screen, Bloodon 09-14-20 18 HCG Qn Negative Normal NEG [facility] Comment on above: Result Comment: Spec imens with hCG levels near the threshold of the test (25 mIU/mL) may give a negative or indeterminate result. In such cases, another test should be performed with a new specimen in 48-72 hours. If early is suspected clinically in this setting, correlation with quantitative serum b-hCG level is suggested. [facility] has confirmed the use of plasma for this test. This has not been cleared or approved by the U.[place]. Food and Drug Administration. The FDA has determined that such clearance is not necessary. Performed By: #### C DP, HCG, LACTIC, ISABEL, CP, LIP #### [facility] [address] [facility] [place] [address] ([phone]) Lactic Acidon 09-14-2018 Lactate molar conc 1.9 mmol/L Normal 0.5-2.2 [facility] Comment on above: Performed By: #### C DP, HCG, LACTIC, ISABEL, CP, LIP #### [facility] [address] [facility] [place] [address] Lactate molar conc NOT REPORTED Normal 0.7-2.1 [facility] Comment on above: Performed By: #### C DP, HCG, LACTIC, ISABEL, CP, LIP #### [facility] [address] [place] [address] Lipaseon 09-14-2018 Lipase enzyme act/vol 29 U/L Normal 13-60 [facility] Comment on above: Performed By: #### SAMEERA Carcamo #### [facility] [address] [place] [address] TESTOSTER.FREE-TOTALon 09-14 Testosterone mass conc 6 ng/dL Low 8-48 [facility] Comment on above: Result Comment: [facility] Performed By: #### A CBC, CHEM7F, BHCG2 ####Testing performed at [facility] [place] [address] Urinalysis, Routineon 2017 Acetoacetic Acid,Ur Negative Normal NEG [facility] Comment on above: Performed By: #### SAMEERA Carcamo #### [facility] [address] [place] [address] ([phone]) Bilirubin, SemiQt,Ur Negative Normal NEG [facility] Comment on above: Performed By: #### U SAMEERA Ortiz #### [facility] [address] [place] [address] Color Nom (U) YELLOW Normal YEL [facility] Comment on above: Performed By: #### U A, UMICAO #### [facility] [address] [facility] [place] [address] Comment Normal [facility] Comment on above: Performed By: #### U A, UMICAO #### [facility] [address] [place] [address] Glucose,Semi-qnt,Ur Negative Normal NEG [facility] Comment on above: Performed By: #### U A, UMICAO #### [facility] [address] [facility] [place] [address] Hemoglobin, Ur 2+ Abnormal NEG [facility] Comment on above: Performed By: #### U A, UMICAO #### [facility] [address] [facility] [place] [address] Leuckocyte Esterase 1+ Abnormal NEG [facility] Comment on above: Performed By: #### U A, UMICAO #### [facility] [address] [facility] [place] [address] Nitrite,Ur Negative Normal NEG [facility] Comment on above: Performed By: #### U A, UMICAO #### [facility] [address] [facility] [place] [address] PH,Ur 7.0 Normal 5.0-8.0 [facility] Comment on above: Performed By: #### U A, UMICAO #### [facility] [address] [facility] [place] [address] Protein mass conc (U) Negative Normal NEG [facility] Comment on above: Performed By: #### U A, UMICAO #### [facility] [address] [facility] [place] [address] Spec. [place],Ur 1.010 Normal 1.005-1.030 [facility] Comment on above: Performed By: #### U A, UMICAO #### [facility] [address] [facility] [place] [address] Turbidity HAZY Abnormal CLEAR [facility] Comment on above: Performed By: #### U A, UMICAO #### [facility] [address] [facility] [place] [address] Urobilinogen,Ur Normal Normal NORM [facility] Comment on above: Performed By: #### U A, UMICAO #### [facility] [address] [facility] [place] [address] Urinalysis,Microon 8 ----- Normal [facility] Comment on above: Performed By: #### U A, UMICAO #### [facility] [address] [facility] [place] [address] Bacteria LM.HPF #/area (Urine sed) 1+ Abnormal NONE [facility] Comment on above: Performed By: #### U A, UMICAO #### [facility] [address] [facility] [place] [address] Epithelial cells LM.HPF #/area (Urine sed) 5 TO 10 Normal [facility] Comment on above: Performed By: #### U A, UMICAO #### [facility] [address] [facility] [place] [address] RBC #/vol (U) 2 TO 5 Normal 0-2 [facility] Comment on above: Performed By: #### U A, UMICAO #### [facility] [address] [facility] [place] [address] WBC #/vol (U) 2 TO 5 Normal 0 [facility] Comment on above: Performed By: #### U A, UMICAO #### [facility] [address] [facility] [place] [address] Amorphous sediment LM Ql (Urine sed) NOT REPORTED Normal NONE [facility] Comment on above: Performed By: #### U A, UMICAO #### [facility] [address] [place] [address] Casts LM.LPF #/area (Urine sed) NOT REPORTED Normal [facility] Comment on above: Performed By: #### U A, UMICAO #### [facility] [address] [place] [address] Crystals LM Nom (Urine sed) NOT REPORTED Normal NONE [facility] Comment on above: Performed By: #### U A, UMICAO #### [facility] [address] [facility] [place] [address] Epithelial, Renal NOT REPORTED Normal 0 [facility] Comment on above: Performed By: #### U A, UMICAO #### [facility] [address] [facility] [place] [address] Mucus Strands NOT REPORTED Normal NONE [facility] Comment on above: Performed By: #### U A, UMICAO #### [facility] [address] [facility] [place] [address] Other Observations NOT REPORTED Normal NREQ [facility] Comment on above: Performed By: #### U A, UMICAO #### [facility] [address] [facility] [place] [address] Trichomonas NOT REPORTED Normal NONE [facility] Comment on above: Performed By: #### U A, UMICAO #### [facility] [address] [facility] [place] [address] Yeast LM Ql (Urine sed) NOT REPORTED Normal NONE [facility] Comment on above: Performed By: #### U A, UMICAO #### [facility] [address] [place] [address] BMP FASTINGon 09-13-2018 Anion gap 3 molar conc 13 mmol/L Normal 8-16 [facility] Comment on above: Performed By: #### A CBC, CHEM7F, BHCG2 ####[place] [address] Calcium mass conc 9.4 mg/dL Normal 8.4-10.2 [facility] Comment on above: Performed By: #### A CBC, CHEM7F, BHCG2 ####[place] [address] Chloride molar conc 104 mmol/L Normal 98-107 [facility] Comment on above: Result Comment: Anna Marie willard note: Triglyceride levels of 600mg/dL or higher may positively bias chloride results by approximately 2.1 mmol Performed By: #### A CBC, CHEM7F, BHCG2 ####[place] [address] CO2 molar conc 24 mmol/L Normal 22-30 [facility] Comment on above: Performed By: #### A CBC, CHEM7F, BHCG2 ####[place] [address] Creatinine mass conc 0.8 mg/dL Normal 0.7-1.[address] [facility] Comment on above: Performed By: #### A CBC, CHEM7F, BHCG2 ####[place] [address] EST. GFR, >60 Normal [facility] Comment on above: Performed By: #### A CBC, CHEM7F, BHCG2 ####[place] [address] EST. GFR,Non >60 Normal [facility] Comment on above: Performed By: #### A CBC, CHEM7F, BHCG2 ####[place] [address] GFR/1.73 sq M predicted among non-blacks MDRD vol rate/area (S/P/Bld) Average GFR for 20-29 years old = 116. Normal [facility] Comment on above: Result Comment: [employer] frantz Kidney disease, GFR = <60.Kidney failure, GFR = <15.The GFR estimate is not adjusted for extreme body surface area or acute process, nor has it been validated for women or ethnic groups other than and .Testing performed at [place] [address] Performed By: #### A CBC, CHEM7F, BHCG2 ####[place] [address] Glucose mass conc 119 mg/dL High 70-100 [facility] Comment on above: Result Comment: NORM AL <100 mg/dLPREDIABETES 101-126 mg/dLDIABETES 126 mg/dL or higher Performed By: #### A CBC, CHEM7F, BHCG2 ####[place] [address] Potassium molar conc 3.4 mmol/L Low 3.5-5.[address] [facility] Comment on above: Performed By: #### A CBC, CHEM7F, BHCG2 ####[place] [address] Sodium molar conc 141 mmol/L Normal 137-145 [facility] Comment on above: Performed By: #### A CBC, CHEM7F, BHCG2 ####[place] [address] Urea nitrogen mass conc (Bld) 4 mg/dL Low 7-20 [facility] Comment on above: Performed By: #### A CBC, CHEM7F, BHCG2 ####[place] [address] CBCon 09-13-2018 ABSOLUTE BAS 0.0 X10 Normal [facility] Comment on above: Result Comment: Test ing performed at [place] [address] Performed By: #### A CBC, CHEM7F, BHCG2 ####[place] [address] ABSOLUTE EOS 0.10 X10 Normal [facility] Comment on above: Performed By: #### A CBC, CHEM7F, BHCG2 ####[place] [address] ABSOLUTE NEUTROPHIL COUNT 7.1 x10 High 1.0-7.0 [facility] Comment on above: Performed By: #### A CBC, CHEM7F, BHCG2 ####[place] [address] Basophils/100 WBC Auto (Bld) 0.3 % Normal 0.0-2.0 [facility] Comment on above: Performed By: #### A CBC, CHEM7F, BHCG2 ####[place] [address] DTYPE AUTO DIFF Normal [facility] Comment on above: Performed By: #### A CBC, CHEM7F, BHCG2 ####[place] [address] Eosinophils/100 WBC Auto (Bld) 0.6 % Normal 0.0-11.0 [facility] Comment on above: Performed By: #### A CBC, CHEM7F, BHCG2 ####[place] [address] Lymphocytes Auto #/vol (Bld) 1.80 X10 Normal [facility] Comment on above: Performed By: #### A CBC, CHEM7F, BHCG2 ####[place] [address] Lymphocytes/100 WBC Auto (Bld) 18.9 % Low 20.0-55.0 [facility] Comment on above: Performed By: #### A CBC, CHEM7F, BHCG2 ####[place] [address] Monocytes Auto #/vol (Bld) 0.3 X10 Normal [facility] Comment on above: Performed By: #### A CBC, CHEM7F, BHCG2 ####[place] [address] Monocytes/100 WBC Auto (Bld) 3.7 % Normal 0.0-10.0 [facility] Comment on above: Performed By: #### A CBC, CHEM7F, BHCG2 ####[place] [address] Neutrophils/100 WBC Auto (Bld) 76.5 % High 37.0-75.0 [facility] Comment on above: Performed By: #### A CBC, CHEM7F, BHCG2 ####[place] [address] Erythrocyte distribution width Auto Ratio (RBC) 16.8 % High 11.5-14.5 [facility] Comment on above: Performed By: #### A CBC, CHEM7F, BHCG2 ####[place] [address] Hematocrit Auto Volume Fraction (Bld) 34.3 % Low 36.0-48.0 [facility] Comment on above: Performed By: #### A CBC, CHEM7F, BHCG2 ####[place] [address] Hemoglobin mass conc (Bld) 10.8 g/dL Low 12.0-16.0 [facility] Comment on above: Performed By: #### A CBC, CHEM7F, BHCG2 ####[place] [address] MCH Auto Entitic mass (RBC) 24.5 pg Low 26.0-35.0 [facility] Comment on above: Performed By: #### A CBC, CHEM7F, BHCG2 ####[place] [address] MCHC Auto mass conc (RBC) 31.6 g/dL Normal 27.0-37.0 [facility] Comment on above: Performed By: #### A CBC, CHEM7F, BHCG2 ####[place] [address] MCV Auto Entitic volume (RBC) 77.5 fL Low 80.0-100.0 [facility] Comment on above: Performed By: #### A CBC, CHEM7F, BHCG2 ####[place] [address] Platelet mean volume Auto Entitic volume (Bld) 7.0 fL Low 7.4-11.0 [facility] Comment on above: Result Comment: Test ing performed at [place] [address] Performed By: #### A CBC, CHEM7F, BHCG2 ####[place] [address] Platelets Auto #/vol (Bld) 550 /cmm High 130.0-400.0 [facility] Comment on above: Performed By: #### A CBC, CHEM7F, BHCG2 ####[place] [address] RBC Auto #/vol (Bld) 4.42 /cmm Normal 4.0-5.[address] [facility] Comment on above: Performed By: #### A CBC, CHEM7F, BHCG2 ####[place] [address] WBC Auto #/vol (Bld) 9.4 /cmm Normal 3.6-11.[address] [facility] Comment on above: Performed By: #### A CBC, CHEM7F, BHCG2 ####[place] [address] GENITAL CULTUREon 09-13-2018 GENITAL CULTURE SPECIMEN DESCRIPTION [...] * * Result Note: Testing performed at [place] [address] *REPORT STATUS 09/15/2018 * Result Note: FINAL * Normal [facility] Comment on above: Performed By: #### G ENC ####[place] [address] HEMOGLOBIN A1Con 09-13-2018 Glucose mass conc 117 mg/dL Normal [facility] Comment on above: Result Comment: Test ing performed at [place] [address] Performed By: #### A CBC, CHEM7F, BHCG2 ####[place] [address] Hemoglobin A1c/Hemoglobin.total mass fraction (Bld) 5.7 % Normal 0-6 [facility] Comment on above: Result Comment: NORM AL <5.7%PREDIABETES 5.7-6.4%DIABETES 6.5% OR HIGHER Performed By: #### A CBC, CHEM7F, BHCG2 ####[place] [address] URINE CULTUREon 09-13-2018 Bacteria identified Cx Nom (U) SPECIMEN DESCRIPTION URINE CLEAN CATCHUA DIPSTICK NITRITE NEGATIVE * Result Note: LEUKOCYTE POSITIVE *CULTURE MULTIPLE SPECIES PRESENT;PROBABLE CONTAMINATION. SUGGEST REPEAT SPECIMEN. * Result Note: Testing performed at [place] [address] *REPORT STATUS 09/15/2018 * Result Note: FINAL * Normal [facility] Comment on above: Performed By: #### A CBC, CHEM7F, BHCG2 ####[place] [address] URINE MACROSCOPICon 09-13-20 18 Bilirubin Ql (U) Negative Normal NEGATIVE [facility] Comment on above: Performed By: #### A CBC, CHEM7F, BHCG2 ####[place] [address] Clarity Nom (U) CLEAR Normal CLEAR [facility] Comment on above: Performed By: #### A CBC, CHEM7F, BHCG2 ####[place] [address] Color Nom (U) YELLOW Normal YELLOW [facility] Comment on above: Performed By: #### A CBC, CHEM7F, BHCG2 ####[place] [address] Glucose Ql (U) Negative Normal NEGATIVE [facility] Comment on above: Performed By: #### A CBC, CHEM7F, BHCG2 ####[place] [address] pH Test strip (U) 7.5 [pH] High 5.0-7.0 [facility] Comment on above: Performed By: #### A CBC, CHEM7F, BHCG2 ####[place] [address] URINE HEMOGLOBIN MODERATE Abnormal NEGATIVE [facility] Comment on above: Performed By: #### A CBC, CHEM7F, BHCG2 ####[place] [address] URINE KETONE Negative Normal NEGATIVE [facility] Comment on above: Performed By: #### A CBC, CHEM7F, BHCG2 ####[place] [address] URINE LEUKOTEST TRACE Abnormal NEGATIVE [facility] Comment on above: Result Comment: Test ing performed at [place] [address] Performed By: #### A CBC, CHEM7F, BHCG2 ####[place] [address] URINE NITRATES Negative Normal NEGATIVE [facility] Comment on above: Performed By: #### A CBC, CHEM7F, BHCG2 ####[place] [address] URINE SPEC GRAVITY 1.015 Normal 1.010-1.025 [facility] Comment on above: Performed By: #### A CBC, CHEM7F, BHCG2 ####[place] [address] URINE TOTAL PROTEIN Negative Normal NEGATIVE [facility] Comment on above: Performed By: #### A CBC, CHEM7F, BHCG2 ####[place] [address] Urobilinogen Test strip Qn (U) 0.2 mg/dl Normal 0.2-1.0 [facility] Comment on above: Performed By: #### A CBC, CHEM7F, BHCG2 ####[place] [address] URINE MICROSCOPICon 09-13-20 18 BACTERIA TRACE Abnormal NEGATIVE [facility] Comment on above: Performed By: #### A CBC, CHEM7F, BHCG2 ####[place] [address] CASTS NONE Normal NONE [facility] Comment on above: Performed By: #### A CBC, CHEM7F, BHCG2 ####[place] [address] CRYSTAL NONE Normal [facility] Comment on above: Performed By: #### A CBC, CHEM7F, BHCG2 ####[place] [address] EPITHELIAL CELLS 1 TO 5 Normal [facility] Comment on above: Performed By: #### A CBC, CHEM7F, BHCG2 ####[place] [address] MUCUS TRACE Abnormal NEGATIVE [facility] Comment on above: Performed By: #### A CBC, CHEM7F, BHCG2 ####[place] [address] RBC Test strip #/vol (U) 5 TO 10 Normal NEGATIVE [facility] Comment on above: Performed By: #### A CBC, CHEM7F, BHCG2 ####[place] [address] URINE COMMENT PHYSICIAN REQUESTED CULTURE Normal [facility] Comment on above: Result Comment: Test ing performed at [place] [address] Performed By: #### A CBC, CHEM7F, BHCG2 ####[place] [address] URINE WBC'S 1 TO 5 Normal NEGATIVE [facility] Comment on above: Performed By: #### A CBC, CHEM7F, BHCG2 ####Testing performed at [place] [id number] XR CHEST PA/APon 09-06-2018 XR CHEST PA/AP [...] and possible infiltrate within the right lung base.L/awWorkstation ID: [id number] by: EHSAN SAMUEL on SunSep 06, 2018 10:44:43 AM EDTTranscribed by: SHALOM LOPEZ on SunSep 06, 2018 11:09:51 AM EDTFinalized by: EHSAN SAMUEL on SunSep 06, 2018 11:25:32 AM EDT [facility] Comment on above: Order Comment: [...] with possible developing infiltrate. Invalid Interpretation Code [facility] Cardiomegaly and mod erate pulmonary vascular congestion. Atelectatic changes and possible infiltrate within the right lung base. RelaywareL/Mobile Shareholder Workstation ID: [id number] Invalid Interpretation Code [facility] Interface, Rad In Fu ji Speechq - 09/06/2018 11:28 AM EDT [...] possible infiltrate within the right lung base. Mobile Shareholder/Mobile Shareholder Workstation ID: [id number] Invalid Interpretation Code [facility] CBCon 09-05-2018 Erythrocyte distribution width Auto Entitic volume (RBC) 16.2 % High 11.6 - 14.8 % [facility] Hematocrit Auto Volume Fraction (Bld) 30.9 % Low 36 - 46 % [facility] Hemoglobin mass conc (Bld) 9.3 g/dL Low 12 - 16 g/dL [facility] Interpretation and review of laboratory results Abnormal Invalid Interpretation Code [facility] MCH Auto Entitic mass (RBC) 24.8 pg Low 26 - 34 pg [facility] MCHC Auto mass conc (RBC) 30.1 g/dL Low 31 - 37 g/dL [facility] MCV Auto Entitic volume (RBC) 82.4 fL Invalid Interpretation Code 80 - 100 fL [facility] Nucleated RBC #/vol (Bld) 0.00 10*3/uL Invalid Interpretation Code [facility] Nucleated RBC/100 WBC Ratio (Bld) 0.0 % Invalid Interpretation Code [facility] Platelet mean volume Auto Entitic volume (Bld) 11.9 fL Invalid Interpretation Code 9 - 15.5 fL [facility] Platelets Auto #/vol (Bld) 102 10*3/uL Low [facility] Comment on above: FEW CLUMPED PLATELET S SEEN RBC Auto #/vol (Bld) 3.75 10*6/uL Low [facility] WBC Auto #/vol (Bld) 4.66 10*3/uL Invalid Interpretation Code [facility] Chem 7on 09-05-2018 Anion gap 3 molar conc 17 mmol/L Invalid Interpretation Code 10 - 20 mmol/L [facility] Chloride molar conc 99 mmol/L Invalid Interpretation Code 98 - 108 mmol/L [facility] Creatinine mass conc 1.02 mg/dL Invalid Interpretation Code 0.4 - 1.1 mg/dL [facility] GFR/1.73 sq M predicted among non-blacks MDRD vol rate/area (S/P/Bld) The eGFR should be used for monitoring renal function only and not for medication dosing. Invalid Interpretation Code [facility] GFR/1.73 sq M.predicted CKD-EPI vol rate/area (S/P/Bld) 75 Invalid Interpretation Code >=60 mL/min/1.73 m2 [facility] Glucose mass conc 99 mg/dL Invalid Interpretation Code 65 - 99 mg/dL [facility] HCO3 molar conc 24 mmol/L Invalid Interpretation Code 21 - 32 mmol/L [facility] Interpretation and review of laboratory results Abnormal Invalid Interpretation Code [facility] Potassium molar conc 3.5 mmol/L Invalid Interpretation Code 3.5 - 5.1 mmol/L [facility] Sodium molar conc 136 mmol/L Invalid Interpretation Code 135 - 145 mmol/L [facility] Urea nitrogen mass conc 7 mg/dL Low 8 - 25 mg/dL [facility] Urea nitrogen/Creatinine mass ratio 6.9 mg/mg Low [facility] CBCon 09-04-2018 Erythrocyte distribution width Auto Entitic volume (RBC) 16.2 % High 11.6 - 14.8 % [facility] Hematocrit Auto Volume Fraction (Bld) 30.7 % Low 36 - 46 % [facility] Hemoglobin mass conc (Bld) 9.5 g/dL Low 12 - 16 g/dL [facility] Interpretation and review of laboratory results Abnormal Invalid Interpretation Code [facility] MCH Auto Entitic mass (RBC) 25.2 pg Low 26 - 34 pg [facility] MCHC Auto mass conc (RBC) 30.9 g/dL Low 31 - 37 g/dL [facility] MCV Auto Entitic volume (RBC) 81.4 fL Invalid Interpretation Code 80 - 100 fL [facility] Nucleated RBC #/vol (Bld) 0.00 10*3/uL Invalid Interpretation Code [facility] Nucleated RBC/100 WBC Ratio (Bld) 0.0 % Invalid Interpretation Code [facility] Platelet mean volume Auto Entitic volume (Bld) 11.2 fL Invalid Interpretation Code 9 - 15.5 fL [facility] Platelets Auto #/vol (Bld) 134 10*3/uL Low [facility] RBC Auto #/vol (Bld) 3.77 10*6/uL Low [facility] WBC Auto #/vol (Bld) 5.51 10*3/uL Invalid Interpretation Code [facility] CLOSTRIDIUM DIFFICILE TOXIN PCRon 09-04-2018 C. difficile toxin genes JYOTI+probe Ql (St) Negative Invalid Interpretation Code Toxigenic C.diff NEGATIVE [facility] Epidemiologic Marker [id number] Negative Invalid Interpretation Code [id number] PRESUMPTIVE NEGATIVE [facility] Interpretation and review of laboratory results Normal Invalid Interpretation Code [facility] Comprehensive Metabolic Pane guille 09-04-2018 Albumin mass conc 2.8 g/dL Low 3.2 - 5.2 g/dL [facility] ALP enzyme act/vol 69 U/L Invalid Interpretation Code 40 - 140 U/L [facility] ALT enzyme act/vol 13 U/L Invalid Interpretation Code 0 - 40 U/L [facility] Anion gap 3 molar conc 19 mmol/L Invalid Interpretation Code 10 - 20 mmol/L [facility] AST enzyme act/vol 33 U/L Invalid Interpretation Code 0 - 45 U/L [facility] Bilirubin mass conc 0.4 mg/dL Invalid Interpretation Code 0 - 1.3 mg/dL [facility] Calcium mass conc 8.6 mg/dL Invalid Interpretation Code 8.4 - 10.2 mg/dL [facility] Chloride molar conc 97 mmol/L Low 98 - 108 mmol/L [facility] Creatinine mass conc 1.11 mg/dL High 0.4 - 1 .1 mg/dL [facility] GFR/1.73 sq M predicted among non-blacks MDRD vol rate/area (S/P/Bld) The eGFR should be used for monitoring renal function only and not for medication dosing. Invalid Interpretation Code [facility] GFR/1.73 sq M.predicted CKD-EPI vol rate/area (S/P/Bld) 67 Invalid Interpretation Code >=60 mL/min/1.73 m2 [facility] Glucose mass conc 99 mg/dL Invalid Interpretation Code 65 - 99 mg/dL [facility] HCO3 molar conc 20 mmol/L Low 21 - 32 mmol/L [facility] Interpretation and review of laboratory [...] Urea nitrogen/Creatinine mass ratio 7.2 mg/mg Low [facility] BLOOD GAS, VBG WITH FULL GONZALEZ Michael 09-03-2018 Base excess Calculated molar conc (BldV) -1.4 Invalid Interpretation Code [facility] Calcium.ionized mass conc 4.5 mg/dL Invalid Interpretation Code 4.5 - 5.3 mg/dL [facility] Carboxyhemoglobin/Hem oglobin.total mass fraction (BldA) 1.2 Invalid Interpretation Code [facility] Comment on above: Reference Ranges: [facility] [place] Non-smokers:<1.5% Smokers:1.5-5.0% Heavy Smokers:5.0-9.0% CO2 ppres (BldV) [...] Invalid Interpretation Code 0.6 - 2 mmol/L [facility] Methemoglobin/Hemoglo bin.total mass fraction (BldA) 0.3 % Invalid Interpretation Code 0 - 2 % [facility] Oxygen ppres (BldV) 62 High [facility] Oxygen saturation in Venous blood 92.6 % Invalid Interpretation Code [facility] Oxyhemoglobin/Hemoglo bin.total mass fraction (BldA) 91.3 % Low 94 - 98 % [facility] pH (BldV) 7.47 High [facility] Potassium molar conc 3.7 mmol/L Invalid Interpretation Code 3.5 - 5.1 mmol/L [facility] Sodium molar conc 132 mmol/L Low 135 - 145 mmol/L [facility] Type of Oxygen saturation device Room Air Invalid Interpretation Code [facility] BMPon 09-03-2018 Anion gap 3 molar conc 20 mmol/L Invalid Interpretation Code 10 - 20 mmol/L [facility] Calcium mass conc 9.3 mg/dL Invalid Interpretation Code 8.4 - 10.2 mg/dL [facility] Chloride molar conc 94 mmol/L Low 98 - 108 mmol/L [facility] Creatinine mass conc 1.19 mg/dL High 0.4 - 1 .1 mg/dL [facility] GFR/1.73 sq M predicted among non-blacks MDRD vol rate/area (S/P/Bld) The eGFR should be used for monitoring renal function only and not for medication dosing. Invalid Interpretation Code [facility] GFR/1.73 sq M.predicted CKD-EPI vol rate/area (S/P/Bld) 62 Invalid Interpretation Code >=60 mL/min/1.73 m2 [facility] Glucose mass conc 142 mg/dL High 65 - 99 mg/dL [facility] HCO3 molar conc 19 mmol/L Low 21 - 32 mmol/L [facility] Interpretation and review of laboratory results Abnormal Invalid Interpretation Code [facility] Potassium molar conc 4.2 mmol/L Invalid Interpretation Code 3.5 - 5.1 mmol/L [facility] Comment on above: Specimen slightly he molyzed Sodium molar conc 129 mmol/L Low 135 - 145 mmol/L [facility] Urea nitrogen mass conc 10 mg/dL Invalid Interpretation Code 8 - 25 mg/dL [facility] Urea nitrogen/Creatinine mass ratio 8.4 mg/mg Low [facility] CBC WITH AUTO DIFFERENTIALon 09-03-2018 Basophils Auto #/vol (Bld) 0.03 10*3/uL Invalid Interpretation Code [facility] Basophils/100 WBC Auto (Bld) 0.2 % Invalid Interpretation Code [facility] Eosinophils Auto #/vol (Bld) 0.00 10*3/uL Invalid Interpretation Code [facility] Eosinophils/100 WBC Auto (Bld) 0.0 % Invalid Interpretation Code [facility] Erythrocyte distribution width Auto Entitic volume (RBC) 15.7 % High 11.6 - 14.8 % [facility] Hematocrit Auto Volume Fraction (Bld) 32.8 % Low 36 - 46 % [facility] Hemoglobin mass conc (Bld) 10.6 g/dL Low 12 - 16 g/dL [facility] Immature granulocytes #/vol (Bld) 0.13 10*3/uL Invalid Interpretation Code [facility] Immature granulocytes/100 WBC (Bld) 1.00 % Invalid Interpretation Code [facility] Comment on above: The IG parameter is the percentage of metamyelocytes, myelocytes, and promyelocytes. Interpretation and review of laboratory results Abnormal Invalid Interpretation Code [facility] Lymphocytes Auto #/vol (Bld) 0.61 10*3/uL Low [facility] Lymphocytes/100 WBC Auto (Bld) 4.8 % Invalid Interpretation Code [facility] MCH Auto Entitic mass (RBC) 25.0 pg Low 26 - 34 pg [facility] MCHC Auto mass conc (RBC) 32.3 g/dL Invalid Interpretation Code 31 - 37 g/dL [facility] MCV Auto Entitic volume (RBC) 77.4 fL Low 80 - 100 fL [facility] Monocytes Auto #/vol (Bld) 1.18 10*3/uL High [facility] Monocytes/100 WBC Auto (Bld) 9.2 % Invalid Interpretation Code [facility] Neutrophils Auto #/vol (Bld) 10.81 10*3/uL High [facility] Neutrophils/100 WBC Auto (Bld) 84.8 % Invalid Interpretation Code [facility] Nucleated RBC #/vol (Bld) 0.00 10*3/uL Invalid Interpretation Code [facility] Nucleated RBC/100 WBC Ratio (Bld) 0.0 % Invalid Interpretation Code [facility] Platelet mean volume Auto Entitic volume (Bld) 10.9 fL Invalid Interpretation Code 9 - 15.5 fL [facility] Platelets Auto #/vol (Bld) 179 10*3/uL Invalid Interpretation Code [facility] RBC Auto #/vol (Bld) 4.24 10*6/uL Invalid Interpretation Code [facility] WBC Auto #/vol (Bld) 12.76 10*3/uL High G [facility] CT ABDOMEN PELVIS WITH IV CO NTRAST ONLYon 09-03-2018 CT ABDOMEN PELVIS WITH IV CONTRAST ONLY EXAMINATION:CT OF THE ABDOMEN AND PELVIS WITH GOWWAUJY03/30/2018 11:48 amTECHNIQUE:CT of the abdomen and pelvis [...] in the right hemicolon, suggesting diarrhea.Workstation ID: [id number] by: RANJAN GRANGER on SunSep 03, 2018 11:54:10 AM EDTTranscribed by: RANJAN GRANGER on SunSep 03, 2018 11:54:10 AM EDTFinalized by: RANJAN GRANGER on SunSep 03, 2018 11:54:10 AM EDT [facility] Comment on above: Order Comment: [...] nor suspicious osseous lesions. Invalid Interpretation Code [place] 1. Findings of bilat eral pyelonephritis, appearing more severe on the right. 2. Fluid distention of a few small bowel loops could be related to mild enteritis but could also be physiologic or related to recent ingestion. Of note, there are no findings suggestive of active Crohn disease. 3. Liquid stool in the right hemicolon, suggesting diarrhea. Workstation ID: [id number] Invalid Interpretation Code [facility] [place] Interface, Rad In Fu ji Speechq - [...] diarrhea. Workstation ID: [id number] Invalid Interpretation Code [facility] Hepatic Function Panel (LFT) on 09-03-2018 Albumin mass conc 3.8 g/dL Invalid Interpretation Code 3.2 - 5.2 g/dL [facility] ALP enzyme act/vol 89 U/L Invalid Interpretation Code 40 - 140 U/L [facility] ALT enzyme act/vol 14 U/L Invalid Interpretation Code 0 - 40 U/L [facility] AST enzyme act/vol 41 U/L Invalid Interpretation Code 0 - 45 U/L [facility] Comment on above: Specimen slightly he molyzed Bilirubin mass conc 0.7 mg/dL Invalid Interpretation Code 0 - 1.3 mg/dL [facility] Bilirubin.conjugated mass conc mg/dL Invalid Interpretation Code 0 - 0.4 mg/dL [facility] Interpretation and review of laboratory results Abnormal Invalid Interpretation Code [facility] Protein mass conc 8.2 g/dL High 6 - 8 g/dL [facility] Lactic Acid, Plasmaon 2017 Interpretation and review of laboratory results Normal Invalid Interpretation Code [facility] Lactate molar conc 1.2 mmol/L Invalid Interpretation Code 0.6 - 2 mmol/L [facility] Lipaseon 09-03-2018 Interpretation and review of laboratory results Abnormal Invalid Interpretation Code [facility] Lipase enzyme act/vol 10 U/L Low 15 - 65 U/L [facility] Otheron 09-03-2018 Extra Tube Hold for add-ons. Invalid Interpretation Code [facility] Comment on above: Auto resulted. POC Urine Pregnancyon 2017 HCG ( test) Ql (U) Negative Invalid Interpretation Code Negative [facility] Internal Control Pass Invalid Interpretation Code [facility] Interpretation and review of laboratory results Normal Invalid Interpretation Code [facility] Specific gravity Relative Density (U) Invalid Interpretation Code [facility] URINALYSISon 09-03-2018 Bacteria Auto Ql (U) Many Abnormal None Se en /hpf [facility] Bilirubin Ql (U) Negative Invalid Interpretation Code Negative [facility] Clarity Refractometry automated Nom (U) Cloudy [...] conc (U) Trace Abnormal Negati ve mg/dL [facility] Leukocyte esterase Automated test strip Ql (U) Large Abnormal Negative [facility] Mucus Auto #/area (Urine sed) Rare Invalid Interpretation Code None Seen, Rare /lpf [facility] Nitrite Automated test strip Ql (U) Positive Abnormal Negative [facility] pH Test strip (U) 5.0 [pH] Invalid Interpretation Code [facility] Protein mass conc (U) 100 Abnormal Negati ve mg/dL [facility] RBC Auto #/area (Urine sed) 4 High [facility] Specific gravity Automated test strip Relative Density (U) 1.015 Invalid Interpretation Code [facility] Urobilinogen Test strip Qn (U) <2.0 [...] quantified by microscopic examination. Invalid Interpretation Code [facility] Cult,Urineon 09-02-2018 Cult,Urine Specimen Description .URINE Special Requests NOT REPORTED Culture ESCHERICHIA COLI >[id number] CFU/ML Report Status FINAL 09/02/2018 SUSCEPTIBILITY Organism [...] Trimethoprim/Sulfa >=320 RESISTANT Piperacillin/Tazobactam <=4 SUSCEPTIBLE Normal [facility] Comment on above: Performed By: #### U RC #### [facility] [address] [place] [address] [facility] [address] [place] [address] CBC with Diffon 08-31-2018 Abs. Basophil 0.00 k/uL Normal 0.0-0.2 [facility] Comment on above: Performed By: #### C DP, CP #### [facility] [address] [place] [address] Abs.Neutrophil (Seg) 12.70 k/uL High 2.5-7.0 [facility] Comment on above: Performed By: #### C DP, CP #### [facility] [address] [place] [address] Auto Diff Performed YES Normal [facility] Comment on above: Performed By: #### C DP, CP #### [facility] [address] [place] [address] Basophils/100 WBC (Bld) 0 % Normal 0-2 [facility] Comment on above: Performed By: #### C DP, CP #### [facility] [address] [place] [address] Eosinophils #/vol (Bld) 0.00 10*3/uL Normal 0.0-0.4 [facility] Comment on above: Performed By: #### C DP, CP #### [facility] [address] [place] [address] Eosinophils/100 WBC (Bld) 0 % Normal 0-5 [facility] Comment on above: Performed By: #### C DP, CP #### [facility] [address] [place] [address] Erythrocyte distribution width Ratio (RBC) 16.8 % High 12.1-15.2 [facility] Comment on above: Performed By: #### C DP, CP #### [facility] [address] [place] [id number] Hematocrit Volume Fraction (Bld) 41.0 % Normal 36-46 [facility] [facility] Comment on above: Performed By: #### C DP, CP #### [facility] [address] [place] [address] Hemoglobin mass conc (Bld) 13.2 g/dL Normal 12.0-16.0 [facility] Comment on above: Performed By: #### C DP, CP #### [facility] [address] [place] [address] Lymphocytes #/vol (Bld) 2.10 10*3/uL Normal 1.0-4.8 [facility] Comment on above: Performed By: #### C DP, CP #### [facility] [address] [place] [address] Lymphocytes/100 WBC (Bld) 13 % Low 15-40 [facility] Comment on above: Performed By: #### C DP, CP #### [facility] [address] [place] [address] MCH Entitic mass (RBC) 25.0 pg Low 26-34 [facility] Comment on above: Performed By: #### C DP, CP #### [facility] [address] [place] [address] MCHC mass conc (RBC) 32.2 g/dL Normal 31-37 [facility] Comment on above: Performed By: #### C DP, CP #### [facility] [address] [place] [address] MCV Entitic volume (RBC) 77.7 fL Low 80-100 [facility] Comment on above: Performed By: #### C DP, CP #### [facility] [address] [place] [address] Monocytes #/vol (Bld) 1.20 10*3/uL High 0.0-1.0 M [facility] Comment on above: Performed By: #### C DP, CP #### [facility] [address] [place] [address] Monocytes/100 WBC (Bld) 8 % Normal 4-8 [facility] Comment on above: Performed By: #### C DP, CP #### [facility] [address] [facility] [place] [address] Neutrophil (Seg) 79 % High 47-75 [facility] Comment on above: Performed By: #### C DP, CP #### [facility] [address] [facility] [place] [address] Platelets #/vol (Bld) 312 10*3/uL Normal 140-450 Me [facility] Comment on above: Performed By: #### C DP, CP #### [facility] [address] [place] [address] RBC #/vol (Bld) 5.28 10*6/uL High 4.0-5.2 [facility] Comment on above: Performed By: #### C DP, CP #### [facility] [address] [facility] [place] [address] WBC #/vol (Bld) 16.1 10*3/uL High 3.5-11.0 [facility] Comment on above: Performed By: #### C DP, CP #### [facility] [address] [facility] [place] [address] Abs.Imm.Granulocyte NOT REPORTED Normal 0.00-0.30 [facility] Comment on above: Performed By: #### C DP, CP #### [facility] [address] [place] [address] Immature granulocytes #/vol (Bld) NOT REPORTED Normal 0 [facility] Comment on above: Performed By: #### C DP, CP #### [place] [address] NRBC Automated NOT REPORTED Normal [facility] Comment on above: Performed By: #### C DP, CP #### [place] [address] Platelet mean volume Entitic volume (Bld) NOT REPORTED Normal 6.0-12.0 [facility] Comment on above: Performed By: #### C DP, CP #### [place] [address] Platelets #/vol (Bld) NOT REPORTED Normal M [facility] Comment on above: Performed By: #### C DP, CP #### [place] [address] RBC morphology finding Nom (Bld) NOT REPORTED Normal [facility] Comment on above: Performed By: #### C DP, CP #### [place] [address] WBC Morphology NOT REPORTED Normal [facility] Comment on above: Performed By: #### C DP, CP #### [place] [address] CT ABDOMEN PELVIS WO CONTRAS Ton 08-31-2018 [...] Maycol Hedrick MD 08/31/18 Final result Normal [facility] Comp Metabolic Profon 2017 (cont.) Normal [facility] Comment on above: Result Comment: Aver age GFR for 20-29 years old: 116 mL/min/1.73sq m Chronic Kidney Disease: <60 mL/min/1.73sq m Kidney failure: <15 mL/min/1.73sq m eGFR calculated using average adult body mass. Additional eGFR calculator available at: http://www.Veritract.Besstech/multiple_crcl_2012.htm Performed By: #### C DP, CP #### [facility] [address] [place] [address] Albumin mass conc 4.4 g/dL Normal 3.5-5.2 [facility] Comment on above: Performed By: #### C DP, CP #### [facility] [address] [place] [address] Alkaline Phos 99 U/L Normal 35-104 [facility] Comment on above: Performed By: #### C DP, CP #### [facility] [address] [place] [address] ALT enzyme act/vol 12 U/L Normal 5-33 [facility] Comment on above: Performed By: #### C DP, CP #### [facility] [address] [facility] [place] [address] Anion gap molar conc 14 mmol/L Normal 9-17 [facility] Comment on above: Performed By: #### C DP, CP #### [facility] [address] [facility] [place] [address] AST enzyme act/vol 12 U/L Normal <32 [facility] Comment on above: Performed By: #### C DP, CP #### [facility] [address] [place] [address] Bilirubin Ql (U) 1.43 mg/dL High 0.30-1.20 [facility] Comment on above: Performed By: #### C DP, CP #### [facility] [address] [place] [address] BUN/CRE Ratio 7 Low 9-20 [facility] Comment on above: Performed By: #### C DP, CP #### [facility] [address] [place] [address] Calcium mass conc 9.9 mg/dL Normal 8.6-10.4 [facility] Comment on above: Performed By: #### C DP, CP #### [facility] [address] [place] [id number] Chloride molar conc 99 mmol/L Normal 98-107 [facility] Comment on above: Performed By: #### C DP, CP #### [facility] [address] [place] [address] CO2 molar conc 22 mmol/L Normal 20-31 [facility] Comment on above: Performed By: #### C DP, CP #### [facility] [address] [place] [address] Creatinine mass conc 1.12 mg/dL High 0.50-0.90 [facility] Comment on above: Performed By: #### C DP, CP #### [facility] [address] [facility] [place] [address] GFR, Amer >60 Normal >60 [facility] Comment on above: Performed By: #### C DP, CP #### [facility] [address] [facility] [place] [address] GFR,non Amer 58 mL/min Low >60 [facility] Comment on above: Performed By: #### C DP, CP #### [facility] [address] [facility] [place] [address] Glucose mass conc 155 mg/dL High 70-99 [facility] Comment on above: Performed By: #### C DP, CP #### [facility] [address] [facility] [place] [address] Potassium molar conc 3.5 mmol/L Low 3.7-5.3 [facility] Comment on above: Performed By: #### C DP, CP #### [facility] [address] [facility] [place] [address] Protein mass conc 8.6 g/dL High 6.4-8.3 [facility] Comment on above: Performed By: #### C DP, CP #### [facility] [address] [facility] [place] [address] Sodium molar conc 135 mmol/L Normal 135-144 [facility] Comment on above: Performed By: #### C DP, CP #### [facility] [address] [facility] [place] [address] Urea nitrogen mass conc 8 mg/dL Normal 6-20 [facility] Comment on above: Performed By: #### C DP, CP #### [facility] [address] [place] [address] Albumin/Globulin mass ratio NOT REPORTED Normal 1.0-2.5 [facility] Comment on above: Performed By: #### C DP, CP #### [facility] [address] [facility] [place] [address] Staging: NOT REPORTED Normal [facility] Comment on above: Performed By: #### C DP, CP #### [facility] [address] [facility] [place] [address] Urinalysis, Routineon 2017 Acetoacetic Acid,Ur Negative Normal NEG [facility] Comment on above: Performed By: #### U A, UMICAO #### [facility] [address] [facility] [place] [address] Bilirubin, SemiQt,Ur Negative Normal NEG [facility] Comment on above: Performed By: #### U A, UMICAO #### [facility] [address] [facility] [place] [address] Color Nom (U) YELLOW Normal YEL [facility] Comment on above: Performed By: #### U A, UMICAO #### [facility] [address] [facility] [place] [address] Comment Normal [facility] Comment on above: Performed By: #### U A, UMICAO #### [facility] [address] [facility] [place] [address] Glucose,Semi-qnt,Ur Negative Normal NEG [facility] Comment on above: Performed By: #### U A, UMICAO #### [facility] [address] [facility] [place] [address] Hemoglobin, Ur 3+ Abnormal NEG [facility] Comment on above: Performed By: #### U A, UMICAO #### [facility] [address] [facility] [place] [address] Leuckocyte Esterase 3+ Abnormal NEG [facility] Comment on above: Performed By: #### U A, UMICAO #### [facility] [address] [facility] [place] [address] Nitrite,Ur Negative Normal NEG [facility] Comment on above: Performed By: #### U A, UMICAO #### [facility] [address] [place] [address] PH,Ur 6.0 Normal 5.0-8.0 [facility] Comment on above: Performed By: #### U A, UMICAO #### [facility] [address] [facility] [place] [address] Protein mass conc (U) 2+ Abnormal NEG [facility] Comment on above: Performed By: #### U Angel, UMICAO #### [facility] [address] [facility] [place] [address] Spec. [place],Ur 1.020 Normal 1.005-1.030 [facility] Comment on above: Performed By: #### U A, UMICAO #### [facility] [address] [facility] [place] [address] Turbidity CLEAR Normal CLEAR [facility] Comment on above: Performed By: #### U A, UMICAO #### [facility] [address] [facility] [place] [address] Urobilinogen,Ur Normal Normal NORM [facility] Comment on above: Performed By: #### U A, UMICAO #### [facility] [address] [facility] [place] [address] Urinalysis,Microon 8 ----- Normal [facility] Comment on above: Performed By: #### U A, UMICAO #### [facility] [address] [facility] [place] [address] Bacteria LM.HPF #/area (Urine sed) 1+ Abnormal NONE [facility] Comment on above: Performed By: #### U A, UMICAO #### [facility] [address] [facility] [address] Epithelial cells LM.HPF #/area (Urine sed) 2 TO 5 Normal [facility] Comment on above: Performed By: #### U A, UMICAO #### [facility] [address] [place] [address] RBC #/vol (U) 50 TO 100 Normal 0-2 [facility] Comment on above: Performed By: #### U A, UMICAO #### [facility] [address] [place] [address] WBC #/vol (U) 20 TO 50 Normal 0 [facility] Comment on above: Performed By: #### U A, UMICAO #### [facility] [address] [facility] [place] [address] Amorphous sediment LM Ql (Urine sed) NOT REPORTED Normal NONE [facility] Comment on above: Performed By: #### U A, UMICAO #### [facility] [address] [facility] [place] [address] Casts LM.LPF #/area (Urine sed) NOT REPORTED Normal [facility] Comment on above: Performed By: #### U A, UMICAO #### [facility] [address] [facility] [place] [address] Crystals LM Nom (Urine sed) NOT REPORTED Normal NONE [facility] Comment on above: Performed By: #### U A, UMICAO #### [facility] [address] [facility] [place] [address] Epithelial, Renal NOT REPORTED Normal 0 [facility] Comment on above: Performed By: #### U A, UMICAO #### [facility] [address] [place] [address] Mucus Strands NOT REPORTED Normal NONE [facility] Comment on above: Performed By: #### U A, UMICAO #### [facility] [address] [place] [address] Other Observations NOT REPORTED Normal NREQ [facility] Comment on above: Performed By: #### U A, UMICAO #### [facility] [address] [place] [address] Trichomonas NOT REPORTED Normal NONE [facility] Comment on above: Performed By: #### U A, UMICAO #### [facility] [address] [place] [address] Yeast LM Ql (Urine sed) NOT REPORTED Normal NONE [facility] Comment on above: Performed By: #### U A, UMICAO #### [facility] [address] [place] [address] Alcohol, Medicalon 8 Ethanol mass conc Negative Normal [facility] Comment on above: Performed By: #### A LC, HCGQL ####Unless otherwise noted, all testing performed by [address] [id number]: [id number] Director: Geronimo Ibrahim M.D. Drugs of Abuse, Urineon 10-0 Amphetamines,Ur None Detected Normal None Detected [facility] Comment on above: Performed By: #### D RUGSCRU ####Unless otherwise noted, all testing performed by [address] [id number]: [id number] Director: Geronimo Ibrahim M.D. Barbiturates,Ur None Detected Normal None Detected [facility] Comment on above: Performed By: #### D RUGSCRU ####Unless otherwise noted, all testing performed by [address], [place] [phone]: [id number] Director: Geronimo Ibrahim M.D. Benzodiazepine,Ur None Detected Normal None Detected [facility] Comment on above: Performed By: #### D RUGSCRU ####Unless otherwise noted, all testing performed by [address] [phone]: [id number] Director: Geronimo Ibrahim M.D. Cannabinoids,Ur Positive Abnormal None Detected [facility] Comment on above: Performed By: #### D RUGSCRU ####Unless otherwise noted, all testing performed by [address] [id number]: [id number] Director: Geronimo Ibrahim M.D. Cocaine,Ur None Detected Normal None Detected [facility] Comment on above: Performed By: #### D RUGSCRU ####Unless otherwise noted, all testing performed by [address] [phone]: [id number] Director: Geronimo Ibrahim M.D. DOA Cutoffs See comment. Normal [facility] Comment on above: Result Comment: Drug s of Abuse, Urine Presumptive Positive Cutoff Concentrations.Amphetamine/Methamphetamine: 1000 ng/mlBarbiturates: 200 ng/mlBenzodiazepines and metabolities: 200 ng/mlCannabinoids: 50 ng/mlCocaine/Benzoylecgonine: 300 ng/mlMethadone:300 ng/mlOpiates: 300 ng/mlOxycodone/Oxymorphone: 100 ng/ml Performed By: #### D RUGSCRU ####Unless otherwise noted, all testing performed by [address] [id number]: [id number] Director: Geronimo Ibrahim M.D. Methadone,Ur None Detected Normal None Detected [facility] Comment on above: Performed By: #### D FAUSTINO ####Unless otherwise noted, all testing performed by [address] [phone]: [id number] Director: Geronimo Ibrahim M.D. Opiates,Ur None Detected Normal None Detected [facility] Comment on above: Performed By: #### D FAUSTINO ####Unless otherwise noted, all testing performed by [place] [id number]: [id number] Director: Geronimo Ibrahim M.D. Oxycodone, Urine None Detected Normal None Detected [facility] Comment on above: Result Comment: THES E DRUGS OF ABUSE TESTS ARE PROVIDED A MEDICAL SCREENING ONLY.POSITIVE RESULTS ARENOT CONFIRMED BY GCMS Performed By: #### D FAUSTINO ####Unless otherwise noted, all testing performed by [place] [id number]: [id number] Director: Geronimo Ibrahim M.D. HCG, Qualitativeon 8 HCG, Qualitative Negative Normal [facility] Comment on above: Result Comment: Nega tive: The result is less than or equal to 5 mIU/mL of HCG. Performed By: #### A LC, HCGQL ####Unless otherwise noted, all testing performed by [address] [phone]: [id number] Director: Geronimo Ibrahim M.D. CBCon 07-31-2018 ABSOLUTE BAS 0.1 X10 Normal [facility] Comment on above: Result Comment: Test ing performed at [place] [address] Performed By: #### A CBC, CHEM7F, BHCG2 ####[place] [address] ABSOLUTE EOS 0.10 X10 Normal [facility] Comment on above: Performed By: #### A CBC, CHEM7F, BHCG2 ####[place] [address] ABSOLUTE NEUTROPHIL COUNT 5.3 x10 Normal 1.0-7.0 [facility] Comment on above: Performed By: #### A CBC, CHEM7F, BHCG2 ####[place] [address] Basophils/100 WBC Auto (Bld) 0.7 % Normal 0.0-2.0 [facility] Comment on above: Performed By: #### A CBC, CHEM7F, BHCG2 ####[place] [address] DTYPE AUTO DIFF Normal [facility] Comment on above: Performed By: #### A CBC, CHEM7F, BHCG2 ####[place] [address] Eosinophils/100 WBC Auto (Bld) 1.4 % Normal 0.0-11.0 [facility] Comment on above: Performed By: #### A CBC, CHEM7F, BHCG2 ####[place] [address] Lymphocytes Auto #/vol (Bld) 1.70 X10 Normal [facility] Comment on above: Performed By: #### A CBC, CHEM7F, BHCG2 ####[place] [address] Lymphocytes/100 WBC Auto (Bld) 21.8 % Normal 20.0-55.0 [facility] Comment on above: Performed By: #### A CBC, CHEM7F, BHCG2 ####[place] [address] Monocytes Auto #/vol (Bld) 0.4 X10 Normal [facility] Comment on above: Performed By: #### A CBC, CHEM7F, BHCG2 ####[place] [address] Monocytes/100 WBC Auto (Bld) 5.8 % Normal 0.0-10.0 [facility] Comment on above: Performed By: #### A CBC, CHEM7F, BHCG2 ####[place] [address] Neutrophils/100 WBC Auto (Bld) 70.3 % Normal 37.0-75.0 [facility] Comment on above: Performed By: #### A CBC, CHEM7F, BHCG2 ####[place] [address] Erythrocyte distribution width Auto Ratio (RBC) 15.6 % High 11.5-14.5 [facility] Comment on above: Performed By: #### A CBC, CHEM7F, BHCG2 ####[place] [address] Hematocrit Auto Volume Fraction (Bld) 39.8 % Normal 36.0-48.0 [facility] Comment on above: Performed By: #### A CBC, CHEM7F, BHCG2 ####[place] [address] Hemoglobin mass conc (Bld) 13.3 g/dL Normal 12.0-16.0 [facility] Comment on above: Performed By: #### A CBC, CHEM7F, BHCG2 ####[place] [address] MCH Auto Entitic mass (RBC) 25.3 pg Low 26.0-35.0 [facility] Comment on above: Performed By: #### A CBC, CHEM7F, BHCG2 ####[place] [address] MCHC Auto mass conc (RBC) 33.4 g/dL Normal 27.0-37.0 [facility] Comment on above: Performed By: #### A CBC, CHEM7F, BHCG2 ####[place] [address] MCV Auto Entitic volume (RBC) 75.8 fL Low 80.0-100.0 [facility] Comment on above: Performed By: #### A CBC, CHEM7F, BHCG2 ####[place] [address] Platelet mean volume Auto Entitic volume (Bld) 8.2 fL Normal 7.4-11.0 [facility] Comment on above: Result Comment: Test ing performed at [place] [address] Performed By: #### A CBC, CHEM7F, BHCG2 ####[place] [address] Platelets Auto #/vol (Bld) 263 /cmm Normal 130.0-400.0 [facility] Comment on above: Performed By: #### A CBC, CHEM7F, BHCG2 ####[place] [address] RBC Auto #/vol (Bld) 5.25 /cmm Normal 4.0-5.[address] [facility] Comment on above: Performed By: #### A CBC, CHEM7F, BHCG2 ####[place] [address] WBC Auto #/vol (Bld) 7.6 /cmm Normal 3.6-11.[address] [facility] Comment on above: Performed By: #### A CBC, CHEM7F, BHCG2 ####[place] [address] CHEM 7 FASTINGon 07-31-2018 Chloride molar conc 104 mmol/L Normal 98-107 [facility] Comment on above: Performed By: #### A CBC, CHEM7F, BHCG2 ####[place] [address] CO2 molar conc 23 mmol/L Normal 22-30 [facility] Comment on above: Performed By: #### A CBC, CHEM7F, BHCG2 ####[place] [address] Creatinine mass conc 0.8 mg/dL Normal 0.7-1.[address] [facility] Comment on above: Performed By: #### A CBC, CHEM7F, BHCG2 ####[place] [address] EST. GFR, >60 Normal [facility] Comment on above: Performed By: #### A CBC, CHEM7F, BHCG2 ####[place] [address] EST. GFR,Non >60 Normal [facility] Comment on above: Performed By: #### A CBC, CHEM7F, BHCG2 ####[place] [address] GFR/1.73 sq M predicted among non-blacks MDRD vol rate/area (S/P/Bld) Average GFR for 20-29 years old = 116. Normal [facility] Comment on above: Result Comment: [employer] frantz Kidney disease, GFR = <60.Kidney failure, GFR = <15.The GFR estimate is not adjusted for extreme body surface area or acute process, nor has it been validated for women or ethnic groups other than and .Testing performed at [place] [address] Performed By: #### A CBC, CHEM7F, BHCG2 ####[place] [address] Glucose mass conc 99 mg/dL Normal 70-100 [facility] Comment on above: Result Comment: NORM AL <100 mg/dLPREDIABETES 101-126 mg/dLDIABETES 126 mg/dL or higher Performed By: #### A CBC, CHEM7F, BHCG2 ####[place] [address] Potassium molar conc 4.1 mmol/L Normal 3.5-5.[address] [facility] Comment on above: Performed By: #### A CBC, CHEM7F, BHCG2 ####[place] [address] Sodium molar conc 139 mmol/L Normal 137-145 [facility] Comment on above: Performed By: #### A CBC, CHEM7F, BHCG2 ####[place] [address] Urea nitrogen mass conc (Bld) 8 mg/dL Normal 7-20 [facility] Comment on above: Performed By: #### A CBC, CHEM7F, BHCG2 ####[place] [address] CT ABDOMEN/PELVIS WITHOUT CO NTRASTon 07-31-2018 CT [...] seen to account for the symptoms. Normal [facility] ESRon 07-31-2018 ESR Velocity (Bld) 79 mm/h High 0-15 [facility] Comment on above: Result Comment: Test ing performed at [place] [address] Performed By: #### A CBC, CHEM7F, BHCG2 ####[place] [address] LACTIC ACIDon 07-31-2018 Lactate molar conc 1.2 mmol/L Normal 0.7-2.0 [facility] Comment on above: Result Comment: Test ing performed at [place] [address] Performed By: #### A CBC, CHEM7F, BHCG2 ####[place] [address] LIPASE,SERUMon 07-31-2018 LIPASE,SERUM 50 U/L Normal 23-300 [facility] [facility] Comment on above: Result Comment: Test ing performed at [place] [address] Performed By: #### A CBC, CHEM7F, BHCG2 ####[place] [address] LIVER PANELon 07-31-2018 Albumin mass conc 4.3 g/dL Normal 2.9-5.3 [facility] Comment on above: Performed By: #### A CBC, CHEM7F, BHCG2 ####[place] [address] ALP enzyme act/vol 98 U/L Normal 38-126 [facility] Comment on above: Performed By: #### A CBC, CHEM7F, BHCG2 ####[place] [address] ALT enzyme act/vol 23 U/L Normal 9-52 [facility] Comment on above: Result Comment: Test ing performed at [place] [address] Performed By: #### A CBC, CHEM7F, BHCG2 ####[place] [address] AST enzyme act/vol 19 U/L Normal 14-36 [facility] Comment on above: Performed By: #### A CBC, CHEM7F, BHCG2 ####Testing performed at [place] [id number] Bilirubin mass conc 1.4 mg/dL High 0.2-1.3 [facility] Comment on above: Performed By: #### A CBC, CHEM7F, BHCG2 ####[place] [address] Bilirubin.direct mass conc 0.2 mg/dL Normal 0-0.4 [facility] Comment on above: Performed By: #### A CBC, CHEM7F, BHCG2 ####[place] [address] Protein mass conc 7.5 g/dL Normal 6.3-8.2 [facility] Comment on above: Performed By: #### A CBC, CHEM7F, BHCG2 ####[place] [address] CBCon 07-26-2018 ABSOLUTE BAS 0.[address] [facility] Comment on above: Performed By: #### L IPA2, ACBC, CMPF, ESR ####[place] [address] ABSOLUTE EOS 0.[address] [facility] Comment on above: Performed By: #### L IPA2, ACBC, CMPF, ESR ####Testing performed at [address] [address] ABSOLUTE NEUTROPHIL COUNT 5.4 x10 Normal 1.0-7.0 [facility] Comment on above: Performed By: #### L IPA2, ACBC, CMPF, ESR ####Testing performed at [place] [id number] Basophils/100 WBC Auto (Bld) 0.8 % Normal 0.0-2.0 [facility] Comment on above: Performed By: #### L IPA2, ACBC, CMPF, ESR ####Testing performed at [place] [id number] DTYPE AUTO DIFF Normal [facility] Comment on above: Performed By: #### L IPA2, ACBC, CMPF, ESR ####Testing performed at [address] [address] Eosinophils/100 WBC Auto (Bld) 1.6 % Normal 0.0-11.0 [facility] Comment on above: Performed By: #### L IPA2, ACBC, CMPF, ESR ####Testing performed at [address] [address] Lymphocytes Auto #/vol (Bld) 2.[address] [facility] Comment on above: Performed By: #### L IPA2, ACBC, CMPF, ESR ####Testing performed at [address] [address] Lymphocytes/100 WBC Auto (Bld) 25.8 % Normal 20.0-55.0 [facility] Comment on above: Performed By: #### L IPA2, ACBC, CMPF, ESR ####Testing performed at [address] [address] Monocytes Auto #/vol (Bld) 0.[address] [facility] Comment on above: Performed By: #### L IPA2, ACBC, CMPF, ESR ####Testing performed at [address] [address] Monocytes/100 WBC Auto (Bld) 4.8 % Normal 0.0-10.0 [facility] Comment on above: Performed By: #### L IPA2, ACBC, CMPF, ESR ####Testing performed at [address] [address] Neutrophils/100 WBC Auto (Bld) 67.0 % Normal 37.0-75.0 [facility] Comment on above: Performed By: #### L IPA2, ACBC, CMPF, ESR ####Testing performed at [address] [address] Erythrocyte distribution width Auto Ratio (RBC) 15.6 % High 11.5-14.5 [facility] Comment on above: Performed By: #### L IPA2, ACBC, CMPF, ESR ####[place] [address] Hematocrit Auto Volume Fraction (Bld) 38.8 % Normal 36.0-48.0 [facility] Comment on above: Performed By: #### L IPA2, ACBC, CMPF, ESR ####[place] [address] Hemoglobin mass conc (Bld) 13.0 g/dL Normal 12.0-16.0 [facility] Comment on above: Performed By: #### L IPA2, ACBC, CMPF, ESR ####[place] [address] MCH Auto Entitic mass (RBC) 25.6 pg Low 26.0-35.0 [facility] Comment on above: Performed By: #### L IPA2, ACBC, CMPF, ESR ####[place] [address] MCHC Auto mass conc (RBC) 33.5 g/dL Normal 27.0-37.0 [facility] Comment on above: Performed By: #### L IPA2, ACBC, CMPF, ESR ####[place] [address] MCV Auto Entitic volume (RBC) 76.3 fL Low 80.0-100.0 [facility] Comment on above: Performed By: #### L IPA2, ACBC, CMPF, ESR ####[place] [address] Platelet mean volume Auto Entitic volume (Bld) 8.4 fL Normal 7.4-11.0 [facility] Comment on above: Performed By: #### L IPA2, ACBC, CMPF, ESR ####[place] [address] Platelets Auto #/vol (Bld) 268 /cmm Normal 130.0-400.0 [facility] Comment on above: Performed By: #### L IPA2, ACBC, CMPF, ESR ####[place] [address] RBC Auto #/vol (Bld) 5.08 /cmm Normal 4.0-5.4 [facility] Comment on above: Performed By: #### L IPA2, ACBC, CMPF, ESR ####Testing performed at [address] [address] WBC Auto #/vol (Bld) 8.1 /cmm Normal 3.6-11.0 [facility] Comment on above: Performed By: #### L IPA2, ACBC, CMPF, ESR ####Testing performed at [address] [address] CMP FASTINGon 07-26-2018 A:G RATIO 1.0 RATIO Low 1.3-2.2 [facility] Comment on above: Performed By: #### L IPA2, ACBC, CMPF, ESR ####[place] [address] Albumin mass conc 4.3 G/dl Normal 3.5-5.0 [facility] Comment on above: Performed By: #### L IPA2, ACBC, CMPF, ESR ####[place] [address] ALP enzyme act/vol 89 U/L Normal 38-126 [facility] Comment on above: Performed By: #### L IPA2, ACBC, CMPF, ESR ####Testing performed at [place] [id number] ALT enzyme act/vol 19 U/L Normal 14-54 [facility] Comment on above: Performed By: #### L IPA2, ACBC, CMPF, ESR ####Testing performed at [place] [id number] AST enzyme act/vol 23 U/L Normal 15-41 [facility] Comment on above: Performed By: #### L IPA2, ACBC, CMPF, ESR ####Testing performed at [address] [address] Bilirubin mass conc 0.7 mg/dL Normal 0.2-1.2 [facility] Comment on above: Performed By: #### L IPA2, ACBC, CMPF, ESR ####Testing performed at [address] [address] Creatinine mass conc 0.9 mg/dL Normal 0.52-1.04 [facility] Comment on above: Performed By: #### L IPA2, ACBC, CMPF, ESR ####Testing performed at [place] [id number] EST. GFR, >[address] [facility] Comment on above: Performed By: #### L IPA2, ACBC, CMPF, ESR ####Testing performed at [place] [id number] EST. GFR,Non >[address] [facility] Comment on above: Performed By: #### L IPA2, ACBC, CMPF, ESR ####[place] [address] GFR/1.73 sq M predicted among non-blacks MDRD vol rate/area (S/P/Bld) Average GFR for 20-29 years old = 116. Normal [facility] Comment on above: Result Comment: [employer] frantz Kidney disease, GFR = <60.Kidney failure, GFR = <15.The GFR estimate is not adjusted for extreme body surface area or acute process, nor has it been validated for women or ethnic groups other than and . Performed By: #### L IPA2, ACBC, CMPF, ESR ####[place] [address] Protein mass conc 8.4 g/dL High 6.3-8.2 [facility] Comment on above: Performed By: #### L IPA2, ACBC, CMPF, ESR ####Testing performed at [place] [id number] Urea nitrogen mass conc (Bld) mg/dL Low 7-20 [facility] Comment on above: Performed By: #### L IPA2, ACBC, CMPF, ESR ####Testing performed at [place] [id number] Calcium mass conc 9.4 mg/dL Normal 8.4-10.2 [facility] Comment on above: Performed By: #### L IPA2, ACBC, CMPF, ESR ####[place] [address] Chloride molar conc 103 mmol/L Normal 98-107 [facility] Comment on above: Performed By: #### L IPA2, ACBC, CMPF, ESR ####[place] [address] CO2 molar conc 25 mmol/L Normal 22-30 [facility] Comment on above: Performed By: #### L IPA2, ACBC, CMPF, ESR ####[place] [address] Glucose mass conc 124 mg/dL High 70-100 [facility] Comment on above: Result Comment: NORM AL <100 mg/dLPREDIABETES 101-126 mg/dLDIABETES 126 mg/dL or higher Performed By: #### L IPA2, ACBC, CMPF, ESR ####[place] [address] Potassium molar conc 3.1 mmol/L Low 3.5-5.1 [facility] Comment on above: Performed By: #### L IPA2, ACBC, CMPF, ESR ####[place] [address] Sodium molar conc 138 mmol/L Normal 136-145 [facility] Comment on above: Performed By: #### L IPA2, ACBC, CMPF, ESR ####[place] [address] ED NOTEon 07-26-[address] [facility] [address] [facility] ED PROVIDERon 07-26-[address] [facility] [address] [facility] ESRon 07-26-2018 ESR Velocity (Bld) 46 mm/h High 0-15 [facility] Comment on above: Performed By: #### L IPA2, ACBC, CMPF, ESR ####Testing performed at [place] [id number] LACTIC ACIDon 07-26-2018 Lactate molar conc 2.1 mmol/L Critically high 0.5-2.0 [facility] Comment on above: Result Comment: ANNA MARIE WILLARD REPEAT INITIAL CRITICAL IN 3 HOURS IF ED OR INPATIENT SEPSIS PATIENTResult called to read back by: SHY DAMIAN 07/26/2018 @ 14:54 by KASSIDY Performed By: #### L ACT ####Testing performed at [address] [address] LIPASE,SERUMon 07-26-2018 LIPASE,SERUM 22 U/L Low 23-300 [facility] Comment on above: Performed By: #### L IPA2, ACBC, CMPF, ESR ####Testing performed at [address] [address] RAPID TOX SCREEN,URINEon AMPHETAMINE Negative Normal NEGATIVE [facility] Comment on above: Result Comment: <500 ng/ml CUTOFF Performed By: #### R TOX, UHCGT ####[place] [address] BARBITURATES Negative Normal NEGATIVE [facility] Comment on above: Result Comment: <200 ng/ml CUTOFF Performed By: #### R TOX, UHCGT ####Testing performed at [address] [address] BENZODIAZEPINES Negative Normal NEGATIVE [facility] Comment on above: Result Comment: <150 ng/ml CUTOFF Performed By: #### R TOX, UHCGT ####Testing performed at [address] [address] BUPRENORPHINE Negative Normal NEGATIVE [facility] Comment on above: Result Comment: <10 ng/ml CUTOFF Performed By: #### R TOX, UHCGT ####Testing performed at [address] [address] CANNABINOIDS Positive Abnormal NEGATIVE [facility] Comment on above: Result Comment: <50 ng/ml CUTOFF*Unconfirmed Screening Result* Unconfirmed screening results are to be used only for medical treatment purposes. Performed By: #### R TOX, UHCGT ####Testing performed at [address] [address] COCAINE Negative Normal NEGATIVE [facility] Comment on above: Result Comment: <150 ng/ml CUTOFF Performed By: #### R TOX, UHCGT ####Testing performed at [address] [place] [address] METHADONE Negative Normal NEGATIVE [facility] Comment on above: Result Comment: <200 ng/ml CUTOFF Performed By: #### R TOX, UHCGT ####Testing performed at [address] [place] [address] METHAMPHETAMINE Negative Normal NEGATIVE [facility] Comment on above: Result Comment: <500 ng/ml CUTOFF Performed By: #### R TOX, UHCGT ####Testing performed at [address] [address] OPIATES Negative Normal NEGATIVE [facility] Comment on above: Result Comment: <100 ng/ml CUTOFF Performed By: #### R TOX, UHCGT ####Testing performed at [address] [address] OXYCODONE Negative Normal NEGATIVE [facility] Comment on above: Result Comment: <100 ng/ml CUTOFF Performed By: #### R TOX, UHCGT ####Testing performed at [address] [address] PHENCYCLIDINE Negative Normal NEGATIVE [facility] Comment on above: Result Comment: <25 ng/ml CUTOFF Performed By: #### R TOX, UHCGT ####Testing performed at [address] [address] Protein mass conc Negative Normal NEGATIVE [facility] Comment on above: Result Comment: <300 ng/ml CUTOFF Performed By: #### R TOX, UHCGT ####Testing performed at [address] [address] TRICYCLIC ANTIDEPRESSANTS Negative Normal NEGATIVE [facility] Comment on above: Result Comment: <300 ng/ml CUTOFF Performed By: #### R TOX, UHCGT ####Testing performed at [address] [address] URINE HCG QUALon 07-26-2018 HCG.beta subunit ( test) Ql (U) Negative Normal NEGATIVE [facility] Comment on above: Performed By: #### R TOX, UHCGT ####Testing performed at [address] [address] ACETAMINOPHENon 07-12-2018 Acetaminophen mass conc <10.0 Low 10-30 [facility] ALCOHOLon 07-12-2018 Ethanol mass conc mg/dL Normal 0-10 [facility] Comment on above: Result Comment: INTOXICATION >80 MG/DL FATAL >400 MG/DL Performed By: #### A CBC ####Testing performed at [address] [address] CBCon 07-12-2018 ABSOLUTE BAS 0.1 X10 Normal [facility] Comment on above: Performed By: #### A CBC ####Testing performed at [address] [address] ABSOLUTE EOS 0.20 X10 Normal [facility] Comment on above: Performed By: #### A CBC ####Testing performed at [address] [address] ABSOLUTE NEUTROPHIL COUNT 7.0 x10 Normal 1.0-7.0 [facility] Comment on above: Performed By: #### A CBC ####Testing performed at [address] [address] Basophils/100 WBC (Bld) 0.7 % Normal 0.0-2.0 [facility] Comment on above: Performed By: #### A CBC ####Testing performed at [address] [address] DTYPE AUTO DIFF Normal [facility] Comment on above: Performed By: #### A CBC ####Testing performed at [address] [address] Eosinophils/100 WBC (Bld) 1.5 % Normal 0.0-11.0 [facility] Comment on above: Performed By: #### A CBC ####Testing performed at [address] [address] Lymphocytes #/vol (Bld) 1.90 X10 Normal [facility] Comment on above: Performed By: #### A CBC ####Testing performed at [address] [address] Lymphocytes/100 WBC (Bld) 19.8 % Low 20.0-55.0 [facility] Comment on above: Performed By: #### A CBC ####Testing performed at [address] [address] Monocytes #/vol (Bld) 0.6 X10 Normal [facility] Comment on above: Performed By: #### A CBC ####Testing performed at [address] [address] Monocytes/100 WBC (Bld) 6.2 % Normal 0.0-10.0 [facility] Comment on above: Performed By: #### A CBC ####Testing performed at [address] [address] Neutrophils/100 WBC (Bld) 71.8 % Normal 37.0-75.0 [facility] Comment on above: Performed By: #### A CBC ####Testing performed at [address] [address] Erythrocyte distribution width Ratio (RBC) 15.3 % High 11.5-14.5 [facility] Comment on above: Performed By: #### A CBC ####Testing performed at [address] [address] Hematocrit Volume Fraction (Bld) 40.7 % Normal 36.0-48.0 [facility] Comment on above: Performed By: #### A CBC ####Testing performed at [address] [address] Hemoglobin mass conc (Bld) 13.3 g/dL Normal 12.0-16.0 [facility] Comment on above: Performed By: #### A CBC ####Testing performed at [address] [address] MCH Entitic mass (RBC) 24.8 pg Low 26.0-35.0 [facility] Comment on above: Performed By: #### A CBC ####[place] [address] MCHC mass conc (RBC) 32.7 g/dL Normal 27.0-37.0 [facility] Comment on above: Performed By: #### A CBC ####[place] [address] MCV Entitic volume (RBC) 75.7 fL Low 80.0-100.0 [facility] Comment on above: Performed By: #### A CBC ####[place] [address] Platelet mean volume Entitic volume (Bld) 8.3 fL Normal 7.4-11.0 [facility] Comment on above: Performed By: #### A CBC ####[place] [address] Platelets #/vol (Bld) 312 /cmm Normal 130.0-400.0 [facility] Comment on above: Performed By: #### A CBC ####[place] [address] RBC #/vol (Bld) 5.37 /cmm Normal 4.0-5.4 [facility] Comment on above: Performed By: #### A CBC ####[place] [address] WBC #/vol (Bld) 9.8 /cmm Normal 3.6-11.0 [facility] Comment on above: Performed By: #### A CBC ####[place] [address] CHEM 7 FASTINGon 07-12-2018 Chloride molar conc 104 mmol/L Normal 98-107 [facility] Comment on above: Performed By: #### A CBC ####Testing performed at [address] [address] CO2 molar conc 22 mmol/L Normal 22-30 [facility] Comment on above: Performed By: #### A CBC ####Testing performed at [address] [address] Creatinine mass conc 0.9 mg/dL Normal 0.7-1.2 [facility] Comment on above: Performed By: #### A CBC ####Testing performed at [address] [address] EST. GFR, >60 Normal [facility] Comment on above: Performed By: #### A CBC ####Testing performed at [address] [address] EST. GFR,Non >60 Normal [facility] Comment on above: Performed By: #### A CBC ####Testing performed at [address] [address] GFR/1.73 sq M predicted among non-blacks MDRD vol rate/area (S/P/Bld) Average GFR for 20-29 years old = 116. Normal [facility] Comment on above: Result Comment: [employer] frantz Kidney disease, GFR = <60. Kidney failure, GFR = <15. The GFR estimate is not adjusted for extreme body surface area or acute process, nor has it been validated for women or ethnic groups other than and . Performed By: #### A CBC ####Testing performed at [address] [address] Glucose mass conc 170 mg/dL High 70-100 [facility] Comment on above: Result Comment: NORMAL <100 mg/dL PREDIABETES 101-126 mg/dL DIABETES 126 mg/dL or higher Performed By: #### A CBC ####Testing performed at [address] [address] Potassium molar conc 3.4 mmol/L Low 3.5-5.1 [facility] Comment on above: Performed By: #### A CBC ####Testing performed at [address] [address] Sodium molar conc 141 mmol/L Normal 137-145 [facility] Comment on above: Performed By: #### A CBC ####Testing performed at [address] [address] Urea nitrogen mass conc 9 mg/dL Normal 7-20 [facility] Comment on above: Performed By: #### A CBC ####Testing performed at [address] [address] LIVER PANELon 07-12-2018 Albumin mass conc 4.7 g/dL Normal 2.9-5.3 [facility] Comment on above: Performed By: #### A CBC ####Testing performed at [address] [address] ALP enzyme act/vol 100 U/L Normal 38-126 [facility] Comment on above: Performed By: #### A CBC ####Testing performed at [address] [address] ALT enzyme act/vol 32 U/L Normal 9-52 [facility] Comment on above: Performed By: #### A CBC ####Testing performed at [address] [address] AST enzyme act/vol 25 U/L Normal 14-36 [facility] Comment on above: Performed By: #### A CBC ####Testing performed at [address] [address] Bilirubin mass conc 1.5 mg/dL High 0.2-1.3 [facility] Comment on above: Performed By: #### A CBC ####Testing performed at [address] [address] Bilirubin.direct mass conc 0.3 mg/dL Normal 0-0.4 [facility] Comment on above: Performed By: #### A CBC ####Testing performed at [address] [address] Protein mass conc 8.4 g/dL High 6.3-8.2 [facility] Comment on above: Performed By: #### A CBC ####Testing performed at [address] [address] PROTIMEon 07-12-2018 INR Coag RelTime (PPP) 1.06 {INR} Normal 0.87-1.13 [facility] Comment on above: Result Comment: 2.0- 3.0 THERAPEUTIC RANGE 2.5-3.5 PROSTHETIC VALVE RANGE Performed By: #### A CBC ####Testing performed at [address] [address] Prothrombin time (PT) Coag time (PPP) 11.0 s Normal 10.0-13.0 [facility] Comment on above: Performed By: #### A CBC ####Testing performed at [address] [address] RAPID TOX SCREEN,URINEon AMPHETAMINE Negative Normal NEGATIVE [facility] Comment on above: Result Comment: <500 ng/ml CUTOFF Performed By: #### U HCGT ####Testing performed at [address] [address] BARBITURATES Negative Normal NEGATIVE [facility] Comment on above: Result Comment: <200 ng/ml CUTOFF Performed By: #### U HCGT ####Testing performed at [address] [address] Benzodiazepines Ql (U) Negative Normal NEGATIVE [facility] Comment on above: Result Comment: <150 ng/ml CUTOFF Performed By: #### U HCGT ####Testing performed at [address] [address] BUPRENORPHINE Negative Normal NEGATIVE [facility] Comment on above: Result Comment: <10 ng/ml CUTOFF Performed By: #### U HCGT ####Testing performed at [address] [address] Cannabinoids Screen Ql (U) Positive Abnormal NEGATIVE [facility] Comment on above: Result Comment: <50 ng/ml CUTOFF *Unconfirmed Screening Result* Unconfirmed screening results are to be used only for medical treatment purposes. Performed By: #### U HCGT ####Testing performed at [address] [place] [address] Cocaine Ql (U) Negative Normal NEGATIVE [facility] Comment on above: Result Comment: <150 ng/ml CUTOFF Performed By: #### U HCGT ####Testing performed at [address] [address] Methadone Ql (U) Negative Normal NEGATIVE [facility] Comment on above: Result Comment: <200 ng/ml CUTOFF Performed By: #### U HCGT ####Testing performed at [address] [place] [address] METHAMPHETAMINE Negative Normal NEGATIVE [facility] Comment on above: Result Comment: <500 ng/ml CUTOFF Performed By: #### U HCGT ####Testing performed at [address] [place] [address] Opiates Ql (U) Negative Normal NEGATIVE [facility] Comment on above: Result Comment: <100 ng/ml CUTOFF Performed By: #### U HCGT ####Testing performed at [address] [place] [address] OXYCODONE Negative Normal NEGATIVE [facility] Comment on above: Result Comment: <100 ng/ml CUTOFF Performed By: #### U HCGT ####Testing performed at [address] [place] [address] Phencyclidine Ql (U) Negative Normal NEGATIVE [facility] Comment on above: Result Comment: <25 ng/ml CUTOFF Performed By: #### U HCGT ####Testing performed at [address] [address] Protein mass conc (U) Negative Normal NEGATIVE [facility] Comment on above: Result Comment: <300 ng/ml CUTOFF Performed By: #### U HCGT ####Testing performed at [address] [address] Tricyclic antidepressants Screen Ql (U) Negative Normal NEGATIVE [facility] Comment on above: Result Comment: <300 ng/ml CUTOFF Performed By: #### U HCGT ####Testing performed at [address] [address] SALICYLATESon 07-12-2018 SALICYLATES <1.0 Normal 0-20 [facility] TSHon 07-12-2018 Thyrotropin Qn 1.140 uIU/ML Normal 0.46-4.68 [facility] Comment on above: Performed By: #### A CBC ####Testing performed at [address] [address] URINE HCG QUALon 07-12-2018 HCG.beta subunit ( test) Ql (U) Negative Normal [facility] Comment on above: Performed By: #### U HCGT ####Testing performed at [address] [address] CBCon 07-09-2018 ABSOLUTE BAS 0.1 X10 Normal [facility] Comment on above: Result Comment: Test ing performed at [place] [address] Performed By: #### A CBC, CHEM7F, BHCG2 ####[place] [address] ABSOLUTE EOS 0.20 X10 Normal [facility] Comment on above: Performed By: #### A CBC, CHEM7F, BHCG2 ####[place] [address] ABSOLUTE NEUTROPHIL COUNT 5.8 x10 Normal 1.0-7.0 [facility] Comment on above: Performed By: #### A CBC, CHEM7F, BHCG2 ####Testing performed at [address] [address] Basophils/100 WBC Auto (Bld) 0.8 % Normal 0.0-2.0 [facility] Comment on above: Performed By: #### A CBC, CHEM7F, BHCG2 ####Testing performed at [place] [id number] DTYPE AUTO DIFF Normal [facility] Comment on above: Performed By: #### A CBC, CHEM7F, BHCG2 ####Testing performed at [place] [id number] Eosinophils/100 WBC Auto (Bld) 2.8 % Normal 0.0-11.0 [facility] Comment on above: Performed By: #### A CBC, CHEM7F, BHCG2 ####Testing performed at [place] [id number] Lymphocytes Auto #/vol (Bld) 1.50 X10 Normal [facility] Comment on above: Performed By: #### A CBC, CHEM7F, BHCG2 ####[place] [address] Lymphocytes/100 WBC Auto (Bld) 18.7 % Low 20.0-55.0 [facility] Comment on above: Performed By: #### A CBC, CHEM7F, BHCG2 ####Testing performed at [address] [address] Monocytes Auto #/vol (Bld) 0.3 X10 Normal [facility] Comment on above: Performed By: #### A CBC, CHEM7F, BHCG2 ####[place] [address] Monocytes/100 WBC Auto (Bld) 4.1 % Normal 0.0-10.0 [facility] Comment on above: Performed By: #### A CBC, CHEM7F, BHCG2 ####Testing performed at [address] [address] Neutrophils/100 WBC Auto (Bld) 73.6 % Normal 37.0-75.0 [facility] Comment on above: Performed By: #### A CBC, CHEM7F, BHCG2 ####[place] [address] Erythrocyte distribution width Auto Ratio (RBC) 15.0 % High 11.5-14.5 [facility] Comment on above: Performed By: #### A CBC, CHEM7F, BHCG2 ####[place] [address] Hematocrit Auto Volume Fraction (Bld) 37.5 % Normal 36.0-48.0 [facility] Comment on above: Performed By: #### A CBC, CHEM7F, BHCG2 ####[place] [address] Hemoglobin mass conc (Bld) 12.3 g/dL Normal 12.0-16.0 [facility] Comment on above: Performed By: #### A CBC, CHEM7F, BHCG2 ####[place] [address] MCH Auto Entitic mass (RBC) 24.9 pg Low 26.0-35.0 [facility] Comment on above: Performed By: #### A CBC, CHEM7F, BHCG2 ####[place] [address] MCHC Auto mass conc (RBC) 32.7 g/dL Normal 27.0-37.0 [facility] Comment on above: Performed By: #### A CBC, CHEM7F, BHCG2 ####[place] [address] MCV Auto Entitic volume (RBC) 76.1 fL Low 80.0-100.0 [facility] Comment on above: Performed By: #### A CBC, CHEM7F, BHCG2 ####[place] [address] Platelet mean volume Auto Entitic volume (Bld) 8.3 fL Normal 7.4-11.0 [facility] Comment on above: Performed By: #### A CBC, CHEM7F, BHCG2 ####[place] [address] Platelets Auto #/vol (Bld) 262 /cmm Normal 130.0-400.0 [facility] Comment on above: Performed By: #### A CBC, CHEM7F, BHCG2 ####[place] [address] RBC Auto #/vol (Bld) 4.93 /cmm Normal 4.0-5.[address] [facility] Comment on above: Performed By: #### A CBC, CHEM7F, BHCG2 ####[place] [address] WBC Auto #/vol (Bld) 7.9 /cmm Normal 3.6-11.[address] [facility] Comment on above: Performed By: #### A CBC, CHEM7F, BHCG2 ####[place] [address] CHEM 7 FASTINGon 07-09-2018 Chloride molar conc 105 mmol/L Normal 98-107 [facility] Comment on above: Performed By: #### A CBC, CHEM7F, BHCG2 ####[place] [address] CO2 molar conc 25 mmol/L Normal 22-30 [facility] Comment on above: Performed By: #### A CBC, CHEM7F, BHCG2 ####[place] [address] Creatinine mass conc 0.8 mg/dL Normal 0.7-1.[address] [facility] Comment on above: Performed By: #### A CBC, CHEM7F, BHCG2 ####[place] [address] EST. GFR, >60 Normal [facility] Comment on above: Performed By: #### A CBC, CHEM7F, BHCG2 ####[place] [address] EST. GFR,Non >60 Normal [facility] Comment on above: Performed By: #### A CBC, CHEM7F, BHCG2 ####[place] [address] GFR/1.73 sq M predicted among non-blacks MDRD vol rate/area (S/P/Bld) Average GFR for 20-29 years old = 116. Normal [facility] Comment on above: Result Comment: [employer] frantz Kidney disease, GFR = <60.Kidney failure, GFR = <15.The GFR estimate is not adjusted for extreme body surface area or acute process, nor has it been validated for women or ethnic groups other than and .Testing performed at [place] [address] Performed By: #### A CBC, CHEM7F, BHCG2 ####[place] [address] Glucose mass conc 101 mg/dL High 70-100 [facility] Comment on above: Result Comment: NORM AL <100 mg/dLPREDIABETES 101-126 mg/dLDIABETES 126 mg/dL or higher Performed By: #### A CBC, CHEM7F, BHCG2 ####[place] [address] Potassium molar conc 4.1 mmol/L Normal 3.5-5.[address] [facility] Comment on above: Performed By: #### A CBC, CHEM7F, BHCG2 ####[place] [address] Sodium molar conc 140 mmol/L Normal 137-145 [facility] Comment on above: Performed By: #### A CBC, CHEM7F, BHCG2 ####[place] [address] Urea nitrogen mass conc (Bld) 8 mg/dL Normal 7-20 [facility] Comment on above: Performed By: #### A CBC, CHEM7F, BHCG2 ####[place] [address] ESRon 07-09-2018 ESR Velocity (Bld) 55 mm/h High 0-15 [facility] Comment on above: Result Comment: Test ing performed at [place] [address] Performed By: #### A CBC, CHEM7F, BHCG2 ####[place] [address] URINE HCG QUALon 07-09-2018 HCG.beta subunit ( test) Ql (U) Negative Normal [facility] Comment on above: Result Comment: Test ing performed at [place] [address] Performed By: #### A CBC, CHEM7F, BHCG2 ####[place] [address] URINE MACROSCOPICon 07-09-20 18 Bilirubin Ql (U) Negative Normal NEGATIVE [facility] Comment on above: Performed By: #### A CBC, CHEM7F, BHCG2 ####[place] [address] Clarity Nom (U) CLEAR Abnormal CLEAR [facility] Comment on above: Performed By: #### A CBC, CHEM7F, BHCG2 ####[place] [address] Color Nom (U) YELLOW Normal YELLOW [facility] Comment on above: Performed By: #### A CBC, CHEM7F, BHCG2 ####[place] [address] Glucose Ql (U) Negative Normal NEGATIVE [facility] Comment on above: Performed By: #### A CBC, CHEM7F, BHCG2 ####[place] [address] pH Test strip (U) 6.0 [pH] Normal 5.0-7.0 [facility] Comment on above: Performed By: #### A CBC, CHEM7F, BHCG2 ####[place] [address] URINE HEMOGLOBIN MODERATE Abnormal NEGATIVE [facility] Comment on above: Performed By: #### A CBC, CHEM7F, BHCG2 ####[place] [address] URINE KETONE Negative Normal NEGATIVE [facility] Comment on above: Performed By: #### A CBC, CHEM7F, BHCG2 ####[place] [address] URINE LEUKOTEST TRACE Abnormal NEGATIVE [facility] Comment on above: Result Comment: Test ing performed at [place] [address] Performed By: #### A CBC, CHEM7F, BHCG2 ####[place] [address] URINE NITRATES Negative Normal NEGATIVE [facility] Comment on above: Performed By: #### A CBC, CHEM7F, BHCG2 ####[place] [address] URINE SPEC GRAVITY 1.025 Normal 1.010-1.025 [facility] Comment on above: Performed By: #### A CBC, CHEM7F, BHCG2 ####[place] [address] URINE TOTAL PROTEIN Negative Normal NEGATIVE [facility] Comment on above: Performed By: #### A CBC, CHEM7F, BHCG2 ####[place] [address] Urobilinogen Test strip Qn (U) 0.2 mg/dl Normal 0.2-1.0 [facility] Comment on above: Performed By: #### A CBC, CHEM7F, BHCG2 ####[place] [address] URINE MICROSCOPICon 07-09-20 18 BACTERIA Negative Normal NEGATIVE [facility] Comment on above: Performed By: #### A CBC, CHEM7F, BHCG2 ####[place] [address] CASTS NONE Normal NONE [facility] Comment on above: Performed By: #### A CBC, CHEM7F, BHCG2 ####[place] [address] CRYSTAL NONE Normal NONE [facility] Comment on above: Performed By: #### A CBC, CHEM7F, BHCG2 ####[place] [address] EPITHELIAL CELLS TOO NUMEROUS TO COUNT Normal [facility] Comment on above: Performed By: #### A CBC, CHEM7F, BHCG2 ####[place] [address] MUCUS Negative Normal NEGATIVE [facility] Comment on above: Performed By: #### A CBC, CHEM7F, BHCG2 ####[place] [address] RBC Test strip #/vol (U) Negative Normal NEGATIVE [facility] Comment on above: Performed By: #### A CBC, CHEM7F, BHCG2 ####[place] [address] URINE COMMENT POSSIBLY CONTAMINATE D SPECIMEN, CULTURE MUST BE ORDERED SEPARATELY IF DEEMED NECESSARY. Normal [facility] Comment on above: Result Comment: Test ing performed at [place] [address] Performed By: #### A CBC, CHEM7F, BHCG2 ####[place] [address] URINE WBC'S 1 TO 5 Normal NEGATIVE [facility] Comment on above: Performed By: #### A CBC, CHEM7F, BHCG2 ####[place] [address] CBCon 05-19-2018 ABSOLUTE BAS 0.1 X10 Normal [facility] Comment on above: Performed By: #### A CBC ####Testing performed at [address] [place] [address] ABSOLUTE EOS 0.10 X10 Normal [facility] Comment on above: Performed By: #### A CBC ####Testing performed at [address] [place] [address] ABSOLUTE NEUTROPHIL COUNT 8.8 x10 High 1.0-7.0 [facility] Comment on above: Performed By: #### A CBC ####Testing performed at [address] [place] [address] Basophils/100 WBC (Bld) 0.6 % Normal 0.0-2.0 [facility] Comment on above: Performed By: #### A CBC ####Testing performed at [address] [place] [address] DTYPE AUTO DIFF Normal [facility] Comment on above: Performed By: #### A CBC ####Testing performed at [address] [place] [address] Eosinophils/100 WBC (Bld) 0.9 % Normal 0.0-11.0 [facility] Comment on above: Performed By: #### A CBC ####Testing performed at [address] [place] [address] Lymphocytes #/vol (Bld) 2.50 X10 Normal [facility] Comment on above: Performed By: #### A CBC ####Testing performed at [address] [place] [address] Lymphocytes/100 WBC (Bld) 20.2 % Normal 20.0-55.0 [facility] Comment on above: Performed By: #### A CBC ####Testing performed at [address] [place] [address] Monocytes #/vol (Bld) 0.8 X10 Normal [facility] Comment on above: Performed By: #### A CBC ####Testing performed at [address] [address] Monocytes/100 WBC (Bld) 6.8 % Normal 0.0-10.0 [facility] Comment on above: Performed By: #### A CBC ####Testing performed at [address] [address] Neutrophils/100 WBC (Bld) 71.5 % Normal 37.0-75.0 [facility] Comment on above: Performed By: #### A CBC ####Testing performed at [address] [address] Erythrocyte distribution width Ratio (RBC) 16.5 % High 11.5-14.5 [facility] Comment on above: Performed By: #### A CBC ####Testing performed at [address] [address] Hematocrit Volume Fraction (Bld) 35.0 % Low 36.0-48.0 [facility] Comment on above: Performed By: #### A CBC ####Testing performed at [address] [address] Hemoglobin mass conc (Bld) 11.5 g/dL Low 12.0-16.0 [facility] Comment on above: Performed By: #### A CBC ####Testing performed at [address] [address] MCH Entitic mass (RBC) 25.4 pg Low 26.0-35.0 [facility] Comment on above: Performed By: #### A CBC ####Testing performed at [address] [address] MCHC mass conc (RBC) 32.7 g/dL Normal 27.0-37.0 [facility] Comment on above: Performed By: #### A CBC ####Testing performed at [address] [address] MCV Entitic volume (RBC) 77.6 fL Low 80.0-100.0 [facility] Comment on above: Performed By: #### A CBC ####[place] [address] Platelet mean volume Entitic volume (Bld) 7.9 fL Normal 7.4-11.0 [facility] Comment on above: Performed By: #### A CBC ####[place] [address] Platelets #/vol (Bld) 368 /cmm Normal 130.0-400.0 [facility] Comment on above: Performed By: #### A CBC ####[place] [address] RBC #/vol (Bld) 4.51 /cmm Normal 4.0-5.4 [facility] Comment on above: Performed By: #### A CBC ####[place] [address] WBC #/vol (Bld) 12.3 /cmm High 3.6-11.0 [facility] Comment on above: Performed By: #### A CBC ####[place] [address] CMP FASTINGon 05-19-2018 A:G RATIO 1.2 RATIO Low 1.3-2.2 [facility] Albumin mass conc 4.1 G/dl Normal 3.5-5.0 [facility] ALP enzyme act/vol 124 U/L Normal 38-126 [facility] ALT enzyme act/vol 62 U/L High 9-52 [facility] AST enzyme act/vol 35 U/L Normal 14-36 [facility] Bilirubin mass conc 0.5 mg/dL Normal 0.2-1.3 [facility] Calcium mass conc 9.5 mg/dL Normal 8.4-10.2 [facility] Chloride molar conc 106 mmol/L Normal 98-107 [facility] CO2 molar conc 25 mmol/L Normal 22-30 [facility] Creatinine mass conc 0.9 mg/dL Normal 0.7-1.2 [facility] EST. GFR, >60 Normal [facility] EST. GFR,Non >60 Normal [facility] GFR/1.73 sq M predicted among non-blacks MDRD vol rate/area (S/P/Bld) Average GFR for 20-29 years old = 116. Normal [facility] Comment on above: Result Comment: [employer] frantz Kidney disease, GFR = <60. Kidney failure, GFR = <15. The GFR estimate is not adjusted for extreme body surface area or acute process, nor has it been validated for women or ethnic groups other than and . Glucose mass conc 108 mg/dL High 70-100 [facility] Comment on above: Result Comment: NORMAL <100 mg/dL PREDIABETES 101-126 mg/dL DIABETES 126 mg/dL or higher Potassium molar conc 3.5 mmol/L Normal 3.5-5.1 [facility] Protein mass conc 7.5 g/dL Normal 6.3-8.2 [facility] Sodium molar conc 143 mmol/L Normal 137-145 [facility] Urea nitrogen mass conc 9 mg/dL Normal 7-20 [facility] LIPASE,SERUMon 05-19-2018 LIPASE,SERUM 51 U/L Normal 23-300 [facility] URINE HCG QUALon 05-19-2018 HCG.beta subunit ( test) Ql (U) Negative Normal [facility] URINE MACROSCOPICon 05-19-20 18 Bilirubin Ql (U) Negative Normal NEGATIVE [facility] Clarity Nom (U) CLEAR Normal CLEAR [facility] Color Nom (U) YELLOW Normal YELLOW [facility] Glucose Ql (U) Negative Normal NEGATIVE [facility] pH (U) 6.0 [pH] Normal 5.0-7.0 [facility] Protein mass conc (U) TRACE Abnormal NEGATIVE [facility] URINE HEMOGLOBIN Negative Normal NEGATIVE [facility] URINE KETONE Negative Normal NEGATIVE [facility] URINE LEUKOTEST Negative Normal NEGATIVE [facility] URINE NITRATES Negative Normal NEGATIVE [facility] URINE SPEC GRAVITY >1.030 High 1.010-1.025 [facility] Urobilinogen Qn (U) 0.2 mg/dl Normal 0.2-1.0 [facility] URINE MICROSCOPICon 05-19-20 18 Bacteria LM.HPF #/area (Urine sed) TRACE Abnormal NEGATIVE [facility] Casts LM.LPF #/area (Urine sed) NONE Normal NONE [facility] CRYSTAL OCCASIONAL Abnormal NONE [facility] Comment on above: Result Comment: CA O XALATE CRYSTALS Epithelial cells LM.HPF #/area (Urine sed) 20 TO 30 Normal [facility] Mucus Ql (Urine sed) Negative Normal NEGATIVE [facility] RBC #/vol (U) Negative Normal NEGATIVE [facility] URINE COMMENT CULTURE CRITERIA NOT MET, NO CULTURE PERFORMED. Normal [facility] WBC #/vol (U) Negative Normal NEGATIVE [facility] XR ABDOMEN 1 VIEWon 05-19-20 18 XR ABDOMEN 1 VIEW XR ABDOMEN 1 VIEW HISTORY: Abdominal pain. COMPARISON: CT abdomen/pelvis from October 26, 2017. FINDINGS: Nonobstructive bowel gas pattern. No gross pneumoperitoneum. Osseous structures are intact. Intrauterine device is noted. IMPRESSION: Nonobstructive bowel gas pattern. Normal [facility] ACETAMINOPHENon 04-25-2018 Acetaminophen mass conc <10.0 Low 10-30 [facility] ALCOHOLon 04-25-2018 Ethanol mass conc mg/dL Normal 0-10 [facility] Comment on above: Result Comment: INTOXICATION >80 MG/DL FATAL >400 MG/DL CBCon 04-25-2018 ABSOLUTE BAS 0.1 X10 Normal [facility] ABSOLUTE EOS 0.10 X10 Normal [facility] ABSOLUTE NEUTROPHIL COUNT 6.5 x10 Normal 1.0-7.0 [facility] Basophils/100 WBC (Bld) 0.6 % Normal 0.0-2.0 [facility] DTYPE AUTO DIFF Normal [facility] Eosinophils/100 WBC (Bld) 1.1 % Normal 0.0-11.0 [facility] Lymphocytes #/vol (Bld) 2.00 X10 Normal [facility] Lymphocytes/100 WBC (Bld) 22.0 % Normal 20.0-55.0 [facility] Monocytes #/vol (Bld) 0.4 X10 Normal [facility] Monocytes/100 WBC (Bld) 4.5 % Normal 0.0-10.0 [facility] Neutrophils/100 WBC (Bld) 71.8 % Normal 37.0-75.0 [facility] Erythrocyte distribution width Ratio (RBC) 15.6 % High 11.5-14.5 [facility] Hematocrit Volume Fraction (Bld) 37.2 % Normal 36.0-48.0 [facility] Hemoglobin mass conc (Bld) 12.0 g/dL Normal 12.0-16.0 [facility] MCH Entitic mass (RBC) 25.3 pg Low 26.0-35.0 [facility] MCHC mass conc (RBC) 32.3 g/dL Normal 27.0-37.0 [facility] MCV Entitic volume (RBC) 78.2 fL Low 80.0-100.0 [facility] Platelet mean volume Entitic volume (Bld) 7.8 fL Normal 7.4-11.0 [facility] Platelets #/vol (Bld) 344 /cmm Normal 130.0-400.0 [facility] RBC #/vol (Bld) 4.76 /cmm Normal 4.0-5.4 [facility] WBC #/vol (Bld) 9.1 /cmm Normal 3.6-11.0 [facility] CHEM 7 FASTINGon 04-25-2018 Chloride molar conc 108 mmol/L High 98-107 [facility] CO2 molar conc 21 mmol/L Low 22-30 [facility] Creatinine mass conc 0.8 mg/dL Normal 0.7-1.2 [facility] EST. GFR, >60 Normal [facility] EST. GFR,Non >60 Normal [facility] GFR/1.73 sq M predicted among non-blacks MDRD vol rate/area (S/P/Bld) Average GFR for 20-29 years old = 116. Normal [facility] Comment on above: Result Comment: [employer] frantz Kidney disease, GFR = <60. Kidney failure, GFR = <15. The GFR estimate is not adjusted for extreme body surface area or acute process, nor has it been validated for women or ethnic groups other than and . Glucose mass conc 98 mg/dL Normal 70-100 [facility] Comment on above: Result Comment: NORMAL <100 mg/dL PREDIABETES 101-126 mg/dL DIABETES 126 mg/dL or higher Potassium molar conc 3.8 mmol/L Normal 3.5-5.1 [facility] Sodium molar conc 140 mmol/L Normal 137-145 [facility] Urea nitrogen mass conc 7 mg/dL Normal 7-20 [facility] LIVER PANELon 04-25-2018 Albumin mass conc 4.4 g/dL Normal 2.9-5.3 [facility] ALP enzyme act/vol 116 U/L Normal 38-126 [facility] ALT enzyme act/vol 30 U/L Normal 9-52 [facility] AST enzyme act/vol 37 U/L High 14-36 [facility] Bilirubin mass conc 1.0 mg/dL Normal 0.2-1.3 [facility] Bilirubin.direct mass conc 0.3 mg/dL Normal 0-0.4 [facility] Protein mass conc 7.8 g/dL Normal 6.3-8.2 [facility] RAPID TOX SCREEN,URINEon AMPHETAMINE Negative Normal NEGATIVE [facility] Comment on above: Result Comment: <500 ng/ml CUTOFF BARBITURATES Negative Normal NEGATIVE [facility] Comment on above: Result Comment: <200 ng/ml CUTOFF Benzodiazepines Ql (U) Negative Normal NEGATIVE [facility] Comment on above: Result Comment: <150 ng/ml CUTOFF BUPRENORPHINE Negative Normal NEGATIVE [facility] Comment on above: Result Comment: <10 ng/ml CUTOFF Cannabinoids Screen Ql (U) Positive Abnormal NEGATIVE [facility] Comment on above: Result Comment: <50 ng/ml CUTOFF *Unconfirmed Screening Result* Unconfirmed screening results are to be used only for medical treatment purposes. Cocaine Ql (U) Negative Normal NEGATIVE [facility] Comment on above: Result Comment: <150 ng/ml CUTOFF Methadone Ql (U) Negative Normal NEGATIVE [facility] Comment on above: Result Comment: <200 ng/ml CUTOFF METHAMPHETAMINE Negative Normal NEGATIVE [facility] Comment on above: Result Comment: <500 ng/ml CUTOFF Opiates Ql (U) Negative Normal NEGATIVE [facility] Comment on above: Result Comment: <100 ng/ml CUTOFF OXYCODONE Negative Normal NEGATIVE [facility] Comment on above: Result Comment: <100 ng/ml CUTOFF Phencyclidine Ql (U) Negative Normal NEGATIVE [facility] Comment on above: Result Comment: <25 ng/ml CUTOFF Protein mass conc (U) Negative Normal NEGATIVE [facility] Comment on above: Result Comment: <300 ng/ml CUTOFF Tricyclic antidepressants Screen Ql (U) Negative Normal NEGATIVE [facility] Comment on above: Result Comment: <300 ng/ml CUTOFF SALICYLATESon 04-25-2018 SALICYLATES <1.0 Normal 0-20 [facility] TSHon 04-25-2018 Thyrotropin Qn 0.480 uIU/ML Normal 0.46-4.68 [facility] URINE MACROSCOPICon 04-25-20 18 Bilirubin Ql (U) Negative Normal NEGATIVE [facility] Clarity Nom (U) CLEAR Normal CLEAR [facility] Color Nom (U) YELLOW Normal YELLOW [facility] Glucose Ql (U) Negative Normal NEGATIVE [facility] pH (U) 6.5 [pH] Normal 5.0-7.0 [facility] Protein mass conc (U) Negative Normal NEGATIVE [facility] URINE HEMOGLOBIN LARGE Abnormal NEGATIVE [facility] URINE KETONE Negative Normal NEGATIVE [facility] URINE LEUKOTEST MODERATE Abnormal NEGATIVE [facility] URINE NITRATES Negative Normal NEGATIVE [facility] URINE SPEC GRAVITY 1.010 Normal 1.010-1.025 [facility] Urobilinogen Qn (U) 0.2 mg/dl Normal 0.2-1.0 [facility] URINE MICROSCOPICon 04-25-20 18 Bacteria LM.HPF #/area (Urine sed) 2+ Abnormal NEGATIVE [facility] Casts LM.LPF #/area (Urine sed) NONE Normal NONE [facility] CRYSTAL RARE Abnormal NONE [facility] Comment on above: Result Comment: CA O XALATE CRYSTALS Epithelial cells LM.HPF #/area (Urine sed) 10 TO 20 Normal [facility] Mucus Ql (Urine sed) TRACE Abnormal NEGATIVE [facility] RBC #/vol (U) 5 TO 10 Normal NEGATIVE [facility] URINE COMMENT POSSIBLY CONTAMINATE D SPECIMEN, CULTURE MUST BE ORDERED SEPARATELY IF DEEMED NECESSARY. Normal [facility] WBC #/vol (U) 1 TO 5 Normal NEGATIVE [facility] Glucose, POCon 02-27-2018 Glucose mass conc 145 mg/dL High [address] [facility] Comment on above: Performed By: #### G LUX ####Unless otherwise noted, all testing performed by [address] [id number]: [id number] Director: Geronimo Ibrahim M.D. Glucose mass conc 218 mg/dL High [address] [facility] Comment on above: Performed By: #### G LUX ####Unless otherwise noted, all testing performed by [address] [id number]: [id number] Director: Geronimo Ibrahim M.D. Basic Metabolic Profon 02-16 Potassium molar conc 2.9 mmol/L Critically low 3.7-5.3 [facility] Comment on above: Performed By: #### C DP #### [facility] [address] [place] [address] #### TROPI, BMP #### [facility] [address] [place] [address] (cont.) [facility] Comment on above: Result Comment: Aver age GFR for 20-29 years old: 116 mL/min/1.73sq m Chronic Kidney Disease: <60 mL/min/1.73sq m Kidney failure: <15 mL/min/1.73sq m eGFR calculated using average adult body mass. Additional eGFR calculator available at: http://[email or web address]/multiple_crcl_2012.htm Performed By: #### C DP #### [address] [address] #### TROPI, BMP #### [address] [place] [address] Anion gap molar conc 17 mmol/L Normal 9-17 [facility] Comment on above: Performed By: #### C DP #### [address] [address] #### TROPI, BMP #### [address] [place] [address] BUN/CRE Ratio 5 Low 9-20 [facility] Comment on above: Performed By: #### C DP #### [address] [address] #### TROPI, BMP #### [address] [place] [address] Calcium mass conc 8.9 mg/dL Normal 8.6-10.4 [facility] Comment on above: Performed By: #### C DP #### [address] [address] #### TROPI, BMP #### [address] [place] [address] Chloride molar conc 102 mmol/L Normal 98-107 [facility] Comment on above: Performed By: #### C DP #### [address] [address] #### TROPI, BMP #### [address] [place] [address] CO2 molar conc 18 mmol/L Low 20-31 [facility] Comment on above: Performed By: #### C DP #### [address] [address] #### TROPI, BMP #### [address] [place] [address] Creatinine mass conc 0.43 mg/dL Low 0.50-0.90 [facility] Comment on above: Performed By: #### C DP #### [address] [address] #### TROPI, BMP #### [address] [place] [address] GFR, Amer >60 Normal >60 [facility] Comment on above: Performed By: #### C DP #### [address] [address] #### TROPI, BMP #### [address] [place] [address] GFR,non Amer >60 Normal >60 [facility] Comment on above: Performed By: #### C DP #### [address] [address] #### TROPI, BMP #### [address] [place] [address] Glucose mass conc 146 mg/dL High 70-99 [facility] Comment on above: Performed By: #### C DP #### [address] [address] #### TROPI, BMP #### [address] [place] [address] Sodium molar conc 137 mmol/L Normal 135-144 [facility] Comment on above: Performed By: #### C DP #### [address] [address] #### TROPI, BMP #### [address] [place] [address] Staging: Normal [facility] Comment on above: Result Comment: Stag e 1: Some kidney damage normal GFR Stage 2: Mild kidney damage GFR 60-89 Stage 3: Moderate kidney damage GFR 30-59 Stage 4: Severe kidney damage GFR 15-29 Stage 5: Severe kidney damage GFR <15 ESRD - chronic treatment by dialysis or transplant Performed at [address] [place] [address] Performed By: #### C DP #### [address] [address] #### TROPI, BMP #### [address] [place] [address] Urea nitrogen mass conc 2 mg/dL Low 6-20 [facility] Comment on above: Performed By: #### C DP #### [address] [address] #### TROPGunner, BMP #### [address] [place] [address] CBC with Diffon 02-16-2018 Abs. Basophil <0.03 Normal 0.00-0.20 [facility] Comment on above: Performed By: #### C DP #### [address] [address] #### TROPI, BMP #### [address] [place] [address] Abs.Imm.Granulocyte 0.08 k/uL Normal 0.00-0.30 [facility] Comment on above: Result Comment: Perf ormed at [address] [address] Performed By: #### C DP #### [address] [address] #### TROPI, BMP #### [address] [place] [id number] Abs.Neutrophil (Seg) 8.67 k/uL High 1.50-8.10 [facility] Comment on above: Performed By: #### C DP #### [address] [address] #### TROPI, BMP #### [address] [place] [address] Basophils/100 WBC (Bld) 0 % Normal 0-2 [facility] Comment on above: Performed By: #### C DP #### [address] [address] #### TROPI, BMP #### [address] [place] [address] Eosinophils #/vol (Bld) 10*3/uL Normal 0.00-0.44 [facility] Comment on above: Performed By: #### C DP #### [address] [address] #### TROPI, BMP #### [address] [place] [address] Eosinophils/100 WBC (Bld) 0 % Low 1-4 [facility] Comment on above: Performed By: #### C DP #### [address] [address] #### TROPI, BMP #### [address] [place] [address] Erythrocyte distribution width Ratio (RBC) 15.2 % High 11.8-14.4 [facility] Comment on above: Performed By: #### C DP #### [address] [address] #### TROPI, BMP #### [address] [place] [address] Hematocrit Volume Fraction (Bld) 33.3 % Low 36.3-47.1 [facility] Comment on above: Performed By: #### C DP #### [address] [address] #### TROPI, BMP #### [address] [place] [address] Hemoglobin mass conc (Bld) 10.9 g/dL Low 11.9-15.1 [facility] Comment on above: Performed By: #### C DP #### [address] [address] #### TROPI, BMP #### [address] [place] [address] Immature granulocytes #/vol (Bld) 1 % High 0 [facility] Comment on above: Performed By: #### C DP #### [address] [address] #### TROPI, BMP #### [address] [place] [address] Lymphocytes #/vol (Bld) 1.82 10*3/uL Normal 1.10-3.70 [facility] Comment on above: Performed By: #### C DP #### [address] [address] #### TROPI, BMP #### [address] [place] [address] Lymphocytes/100 WBC (Bld) 16 % Low 24-43 [facility] Comment on above: Performed By: #### C DP #### [address] [address] #### TROPI, BMP #### [address] [place] [address] MCH Entitic mass (RBC) 27.2 pg Normal 25.2-33.5 [facility] Comment on above: Performed By: #### C DP #### [address] [address] #### TROPI, BMP #### [address] [place] [address] MCHC mass conc (RBC) 32.7 g/dL Normal 28.4-34.8 [facility] Comment on above: Performed By: #### C DP #### [address] [address] #### TROPI, BMP #### [address] [place] [address] MCV Entitic volume (RBC) 83.0 fL Normal 82.6-102.9 [facility] Comment on above: Performed By: #### C DP #### [address] [address] #### TROPI, BMP #### [address] [place] [address] Monocytes #/vol (Bld) 0.55 10*3/uL Normal 0.10-1.20 [facility] Comment on above: Performed By: #### C DP #### [address] [address] #### TROPI, BMP #### [address] [place] [address] Monocytes/100 WBC (Bld) 5 % Normal 3-12 [facility] Comment on above: Performed By: #### C DP #### [address] [address] #### TROPI, BMP #### [address] [place] [address] Neutrophil (Seg) 78 % High 36-65 [facility] Comment on above: Performed By: #### C DP #### [address] [address] #### TROPI, BMP #### [address] [place] [address] NRBC Automated 0.0 per 100 WBC Normal 0.0 [facility] Comment on above: Performed By: #### C DP #### [address] [address] #### TROPI, BMP #### [address] [place] [address] Platelet mean volume Entitic volume (Bld) 10.2 fL Normal 8.1-13.5 [facility] Comment on above: Performed By: #### C DP #### [address] [address] #### TROPI, BMP #### [address] [place] [address] Platelets #/vol (Bld) 236 10*3/uL Normal 138-453 [facility] Comment on above: Performed By: #### C DP #### [address] [address] #### TROPI, BMP #### [address] [place] [address] RBC #/vol (Bld) 4.01 10*6/uL Normal 3.95-5.11 [facility] Comment on above: Performed By: #### C DP #### [address] [address] #### TROPI, BMP #### [address] [place] [address] WBC #/vol (Bld) 11.1 10*3/uL Normal 3.5-11.3 [facility] Comment on above: Performed By: #### C DP #### [address] [address] #### TROPI, BMP #### [address] [place] [address] Auto Diff Performed NOT REPORTED Normal [facility] Comment on above: Performed By: #### C DP #### [address] [address] #### TROPI, BMP #### [address] [place] [address] Platelets #/vol (Bld) NOT REPORTED Normal [facility] Comment on above: Performed By: #### C DP #### [address] [address] #### TROPI, BMP #### [address] [place] [address] RBC morphology finding Nom (Bld) NOT REPORTED [facility] Comment on above: Performed By: #### C DP #### [address] [address] #### TROPI, BMP #### [address] [place] [address] WBC Morphology NOT REPORTED Normal [facility] Comment on above: Performed By: #### C DP #### [address] [address] #### TROPI, BMP #### [address] [place] [address] Troponinon 02-16-2018 Troponin I.cardiac mass conc ng/mL Normal <0.03 [facility] Comment on above: Result Comment: Trop onin T results cannot be compared to Troponin-I results. Performed By: #### C DP #### [address] [address] #### TROPI, BMP #### [address] [place] [address] Troponin I.cardiac mass conc Normal [facility] Comment on above: Result Comment: Refe rence [...] require additional information for diagnosis. Performed at [address] [place] [address] Performed By: #### C DP #### [address] [address] #### TROPI, BMP #### [address] [place] [address] CBCon 02-15-2018 ABSOLUTE BAS 0.0 X10 Normal [facility] Comment on above: Result Comment: Test ing performed at [place], [place] [address] Performed By: #### A CBC, CHEM7F, BHCG2 ####[place] [address] ABSOLUTE EOS 0.10 X10 Normal [facility] Comment on above: Performed By: #### A CBC, CHEM7F, BHCG2 ####[place] [address] ABSOLUTE NEUTROPHIL COUNT 10.8 x10 High 1.0-7.0 [facility] Comment on above: Performed By: #### A CBC, CHEM7F BHCG2 ####Testing performed at [address] [address] Basophils/100 WBC Auto (Bld) 0.3 % Normal 0.0-2.0 [facility] Comment on above: Performed By: #### A CBC, CHEM7F BHCG2 ####Testing performed at [address] [address] DTYPE AUTO DIFF Normal [facility] Comment on above: Performed By: #### A CBC, CHEM7F BHCG2 ####Testing performed at [address] [address] Eosinophils/100 WBC Auto (Bld) 1.1 % Normal 0.0-11.0 [facility] Comment on above: Performed By: #### A CBC, CHEM7F, BHCG2 ####Testing performed at [address] [address] Lymphocytes Auto #/vol (Bld) 1.70 X10 Normal [facility] Comment on above: Performed By: #### A CBC, CHEM7F, BHCG2 ####Testing performed at [address] [address] Lymphocytes/100 WBC Auto (Bld) 12.7 % Low 20.0-55.0 [facility] Comment on above: Performed By: #### A CBC, CHEM7F, BHCG2 ####Testing performed at [address] [address] Monocytes Auto #/vol (Bld) 0.6 X10 Normal [facility] Comment on above: Performed By: #### A CBC, CHEM7F, BHCG2 ####Testing performed at [address] [address] Monocytes/100 WBC Auto (Bld) 4.8 % Normal 0.0-10.0 [facility] Comment on above: Performed By: #### A CBC, CHEM7F, BHCG2 ####[place] [address] Neutrophils/100 WBC Auto (Bld) 81.1 % High 37.0-75.0 [facility] Comment on above: Performed By: #### A CBC, CHEM7F, BHCG2 ####[place] [address] Erythrocyte distribution width Auto Ratio (RBC) 16.8 % High 11.5-14.5 [facility] Comment on above: Performed By: #### A CBC, CHEM7F, BHCG2 ####[place] [address] Hematocrit Auto Volume Fraction (Bld) 36.2 % Normal 36.0-48.0 [facility] Comment on above: Performed By: #### A CBC, CHEM7F, BHCG2 ####[place] [address] Hemoglobin mass conc (Bld) 12.0 g/dL Normal 12.0-16.0 [facility] Comment on above: Performed By: #### A CBC, CHEM7F, BHCG2 ####[place] [address] MCH Auto Entitic mass (RBC) 27.8 pg Normal 26.0-35.0 [facility] Comment on above: Performed By: #### A CBC, CHEM7F, BHCG2 ####[place] [address] MCHC Auto mass conc (RBC) 33.2 g/dL Normal 27.0-37.0 [facility] Comment on above: Performed By: #### A CBC, CHEM7F, BHCG2 ####[place] [address] MCV Auto Entitic volume (RBC) 83.7 fL Normal 80.0-100.0 [facility] Comment on above: Performed By: #### A CBC, CHEM7F, BHCG2 ####[place] [address] Platelet mean volume Auto Entitic volume (Bld) 8.3 fL Normal 7.4-11.0 [facility] Comment on above: Performed By: #### A CBC, CHEM7F, BHCG2 ####[place] [address] Platelets Auto #/vol (Bld) 245 /cmm Normal 130.0-400.0 [facility] Comment on above: Performed By: #### A CBC, CHEM7F, BHCG2 ####[place] [address] RBC Auto #/vol (Bld) 4.33 /cmm Normal 4.0-5.[address] [facility] Comment on above: Performed By: #### A CBC, CHEM7F, BHCG2 ####[place] [address] WBC Auto #/vol (Bld) 13.4 /cmm High 3.6-11.[address] [facility] Comment on above: Performed By: #### A CBC, CHEM7F, BHCG2 ####[place] [address] CMP FASTINGon 02-15-2018 A:G RATIO 1.2 RATIO Low 1.3-2.2 [facility] Comment on above: Performed By: #### A CBC, CHEM7F, BHCG2 ####[place] [address] Albumin mass conc 4.1 G/dl Normal 3.5-5.0 [facility] Comment on above: Performed By: #### A CBC, CHEM7F, BHCG2 ####[place] [address] ALP enzyme act/vol 105 U/L Normal 38-126 [facility] Comment on above: Performed By: #### A CBC, CHEM7F, BHCG2 ####Testing performed at [address] [address] ALT enzyme act/vol 11 U/L Normal 9-52 [facility] Comment on above: Performed By: #### A CBC, CHEM7F, BHCG2 ####Testing performed at [place] [id number] AST enzyme act/vol 16 U/L Normal 14-36 [facility] Comment on above: Performed By: #### A CBC, CHEM7F, BHCG2 ####Testing performed at [place] [id number] Bilirubin mass conc 0.8 mg/dL Normal 0.2-1.3 [facility] Comment on above: Performed By: #### A CBC, CHEM7F, BHCG2 ####[place] [address] Calcium mass conc 8.9 mg/dL Normal 8.4-10.2 [facility] Comment on above: Performed By: #### A CBC, CHEM7F, BHCG2 ####Testing performed at [place] [id number] Chloride molar conc 105 mmol/L Normal 98-107 [facility] Comment on above: Performed By: #### A CBC, CHEM7F, BHCG2 ####[place] [address] CO2 molar conc 19 mmol/L Low 22-30 [facility] Comment on above: Performed By: #### A CBC, CHEM7F, BHCG2 ####Testing performed at [place] [id number] Creatinine mass conc 0.5 mg/dL Low 0.7-1.[address] [facility] Comment on above: Performed By: #### A CBC, CHEM7F, BHCG2 ####Testing performed at [place] [id number] EST. GFR, >60 Normal [facility] Comment on above: Performed By: #### A CBC, CHEM7F, BHCG2 ####[place] [address] EST. GFR,Non >60 Normal [facility] Comment on above: Performed By: #### A CBC, CHEM7F, BHCG2 ####[place] [address] GFR/1.73 sq M predicted among non-blacks MDRD vol rate/area (S/P/Bld) Average GFR for 20-29 years old = 116. Normal [facility] Comment on above: Result Comment: [employer] frantz Kidney disease, GFR = <60.Kidney failure, GFR = <15.The GFR estimate is not adjusted for extreme body surface area or acute process, nor has it been validated for women or ethnic groups other than and .Testing performed at [place] [address] Performed By: #### A CBC, CHEM7F, BHCG2 ####[place] [address] Glucose mass conc 133 mg/dL High 70-100 [facility] Comment on above: Result Comment: NORM AL <100 mg/dLPREDIABETES 101-126 mg/dLDIABETES 126 mg/dL or higher Performed By: #### A CBC, CHEM7F, BHCG2 ####[place] [address] Potassium molar conc 3.3 mmol/L Low 3.5-5.[address] [facility] Comment on above: Performed By: #### A CBC, CHEM7F, BHCG2 ####[place] [address] Protein mass conc 7.5 g/dL Normal 6.3-8.2 [facility] Comment on above: Performed By: #### A CBC, CHEM7F, BHCG2 ####[place] [address] Sodium molar conc 139 mmol/L Normal 137-145 [facility] Comment on above: Performed By: #### A CBC, CHEM7F, BHCG2 ####[place] [address] Urea nitrogen mass conc (Bld) 3 mg/dL Low 05-24 [facility] Comment on above: Performed By: #### A CBC, CHEM7F, BHCG2 ####[place] [address] MAGNESIUMon 02-15-2018 Magnesium mass conc 1.6 mg/dL Normal 1.6-2.3 [facility] Comment on above: Result Comment: Test ing performed at [place] [address] Performed By: #### A CBC, CHEM7F, BHCG2 ####[place] [address] CHLAM/GC AMPLIFon 01-29-2018 CHLAMYDIA NUC. AMP Negative Normal Negative [facility] GONOCOCCUS NUC. AMP Negative Normal Negative [facility] Comment on above: Result Comment: [facility] FIBRONECT[facility]on 01-28-20 18 FIBRONECTIN Negative Normal NEGATIVE [facility] Comment on above: Result Comment: NO F ETAL FIBRONECTIN DETECTED.Testing performed at [place] [address] Performed By: #### A CBC, CHEM7F, BHCG2 ####[place] [address] RAPID TOX SCREEN,URINE WITH REFLEXon 01-27-2018 AMPHETAMINE Negative Normal NEGATIVE [facility] Comment on above: Result Comment: <500 ng/ml CUTOFF Performed By: #### A CBC, CHEM7F, BHCG2 ####[place] [address] BARBITURATES Negative Normal NEGATIVE [facility] Comment on above: Result Comment: <200 ng/ml CUTOFF Performed By: #### A CBC, CHEM7F, BHCG2 ####[place] [address] BENZODIAZEPINES Positive Abnormal NEGATIVE [facility] Comment on above: Result Comment: <150 ng/ml CUTOFF*Unconfirmed Screening Result* Unconfirmed screening results are to be used only for medical treatment purposes. Performed By: #### A CBC, CHEM7F, BHCG2 ####[place] [address] BUPRENORPHINE Negative Normal NEGATIVE [facility] Comment on above: Result Comment: <10 ng/ml CUTOFFTesting performed at [place] [address] Performed By: #### A CBC, CHEM7F, BHCG2 ####[place] [address] CANNABINOIDS Positive Abnormal NEGATIVE [facility] Comment on above: Result Comment: <50 ng/ml CUTOFF*Unconfirmed Screening Result* Unconfirmed screening results are to be used only for medical treatment purposes. Performed By: #### A CBC, CHEM7F, BHCG2 ####[place] [address] COCAINE Negative Normal NEGATIVE [facility] Comment on above: Result Comment: <150 ng/ml CUTOFF Performed By: #### A CBC, CHEM7F, BHCG2 ####[place] [address] METHADONE Negative Normal NEGATIVE [facility] Comment on above: Result Comment: <200 ng/ml CUTOFF Performed By: #### A CBC, CHEM7F, BHCG2 ####[place] [address] METHAMPHETAMINE Negative Normal NEGATIVE [facility] Comment on above: Result Comment: <500 ng/ml CUTOFF Performed By: #### A CBC, CHEM7F, BHCG2 ####[place] [address] OPIATES Negative Normal NEGATIVE [facility] Comment on above: Result Comment: <100 ng/ml CUTOFF Performed By: #### A CBC, CHEM7F, BHCG2 ####[place] [address] OXYCODONE Negative Normal NEGATIVE [facility] Comment on above: Result Comment: <100 ng/ml CUTOFF Performed By: #### A CBC, CHEM7F, BHCG2 ####[place] [address] PHENCYCLIDINE Negative Normal NEGATIVE [facility] Comment on above: Result Comment: <25 ng/ml CUTOFF Performed By: #### A CBC, CHEM7F, BHCG2 ####[place] [address] Protein mass conc Negative Normal NEGATIVE [facility] Comment on above: Result Comment: <300 ng/ml CUTOFF Performed By: #### A CBC, CHEM7F, BHCG2 ####[place] [address] TRICYCLIC ANTIDEPRESSANTS Negative Normal NEGATIVE [facility] Comment on above: Result Comment: <300 ng/ml CUTOFF Performed By: #### A CBC, CHEM7F, BHCG2 ####[place] [address] STREP SCREEN GRP Bon 018 STREP SCREEN GRP B SPECIMEN DESCRIPTION VAGINAL/RECTAL CULTURE NO GROUP B BETA STREP ISOLATED * Result Note: Testing performed at [place] [address] * REPORT STATUS 01/29/2018 * Result Note: FINAL * Normal [facility] Comment on above: Performed By: #### A CBC, CHEM7F, BHCG2 ####[place] [address] URINE CULTUREon 01-27-2018 Bacteria identified Cx Nom (U) SPECIMEN DESCRIPTION URINE - OTHERUA DIPSTICK NITRITE NEGATIVE * Result Note: LEUKOCYTE POSITIVE *CULTURE MULTIPLE SPECIES PRESENT;PROBABLE CONTAMINATION. SUGGEST REPEAT SPECIMEN. * Result Note: Testing performed at [place] [address] *REPORT STATUS 01/29/2018 * Result Note: FINAL * Normal [facility] Comment on above: Performed By: #### A CBC, CHEM7F, BHCG2 ####[place] [address] URINE MACROSCOPICon 03-25-20 18 Bilirubin Ql (U) SMALL Abnormal NEGATIVE [facility] Comment on above: Performed By: #### A CBC, CHEM7F, BHCG2 ####[place] [address] Clarity Nom (U) CLEAR Abnormal CLEAR [facility] Comment on above: Performed By: #### A CBC, CHEM7F, BHCG2 ####[place] [address] Color Nom (U) YELLOW Normal YELLOW [facility] Comment on above: Performed By: #### A CBC, CHEM7F, BHCG2 ####[place] [address] Glucose Ql (U) Negative Normal NEGATIVE [facility] Comment on above: Performed By: #### A CBC, CHEM7F, BHCG2 ####[place] [address] pH Test strip (U) 6.0 [pH] Normal 5.0-7.0 [facility] Comment on above: Performed By: #### A CBC, CHEM7F, BHCG2 ####[place] [address] URINE HEMOGLOBIN Negative Normal NEGATIVE [facility] Comment on above: Performed By: #### A CBC, CHEM7F, BHCG2 ####[place] [address] URINE KETONE TRACE Abnormal NEGATIVE [facility] Comment on above: Performed By: #### A CBC, CHEM7F, BHCG2 ####[place] [address] URINE LEUKOTEST SMALL Abnormal NEGATIVE [facility] Comment on above: Result Comment: Test ing performed at [place] [address] Performed By: #### A CBC, CHEM7F, BHCG2 ####[place] [address] URINE NITRATES Negative Normal NEGATIVE [facility] Comment on above: Performed By: #### A CBC, CHEM7F, BHCG2 ####[place] [address] URINE SPEC GRAVITY >1.030 High 1.010-1.025 [facility] Comment on above: Performed By: #### A CBC, CHEM7F, BHCG2 ####[place] [address] URINE TOTAL PROTEIN 30 mg/dl Abnormal NEGATIVE [facility] Comment on above: Performed By: #### A CBC, CHEM7F, BHCG2 ####[place] [address] Urobilinogen Test strip Qn (U) 1.0 mg/dl Normal 0.2-1.0 [facility] Comment on above: Performed By: #### A CBC, CHEM7F, BHCG2 ####[place] [address] URINE MICROSCOPICon 01-28-20 18 BACTERIA 2+ Abnormal NEGATIVE [facility] Comment on above: Performed By: #### A CBC, CHEM7F, BHCG2 ####[place] [address] CASTS NONE Normal [facility] Comment on above: Performed By: #### A CBC, CHEM7F, BHCG2 ####[place] [address] CRYSTAL NONE Normal [facility] Comment on above: Performed By: #### A CBC, CHEM7F, BHCG2 ####[place] [address] EPITHELIAL CELLS 5 TO 10 Normal [facility] Comment on above: Performed By: #### A CBC, CHEM7F, BHCG2 ####[place] [address] MUCUS 1+ Abnormal NEGATIVE [facility] Comment on above: Performed By: #### A CBC, CHEM7F, BHCG2 ####[place] [address] RBC Test strip #/vol (U) 1 TO 5 Normal NEGATIVE [facility] Comment on above: Performed By: #### A CBC, CHEM7F, BHCG2 ####[place] [address] URINE COMMENT REFLEX CULTURE PER ESTABLISHED CRITERIA. Normal [facility] Comment on above: Result Comment: Test ing performed at [place] [address] Performed By: #### A CBC, CHEM7F, BHCG2 ####[place] [address] URINE WBC'S 1 TO 5 Normal NEGATIVE [facility] Comment on above: Performed By: #### A CBC, CHEM7F, BHCG2 ####[place] [address] Alcohol, Medicalon 8 Ethanol mass conc Negative Normal [facility] Comment on above: Performed By: #### A LC ####Unless otherwise noted, all testing performed by [address] [phone]: [id number] Director: Geronimo Ibrahim M.D. Drugs of Abuse, Urineon 12-06 Amphetamines,Ur None Detected Normal None Detected [facility] Comment on above: Performed By: #### D RUGSCRU ####Unless otherwise noted, all testing performed by [address] [phone]: [id number] Director: Geronimo Ibrahim M.D. Barbiturates,Ur None Detected Normal None Detected [facility] Comment on above: Performed By: #### D RUGSCRU ####Unless otherwise noted, all testing performed by [address] [phone]: [id number] Director: Geronimo Ibrahim M.D. Benzodiazepine,Ur None Detected Normal None Detected [facility] Comment on above: Performed By: #### D RUGSCRU ####Unless otherwise noted, all testing performed by [address] [phone]: [id number] Director: Geronimo Ibrahim M.D. Cannabinoids,Ur Positive Abnormal None Detected [facility] Comment on above: Performed By: #### D RUGSCRU ####Unless otherwise noted, all testing performed by [address] [phone]: [id number] Director: Geronimo Ibrahim M.D. Cocaine,Ur None Detected Normal None Detected [facility] Comment on above: Performed By: #### D RUGSCRU ####Unless otherwise noted, all testing performed by [address] [phone]: [id number] Director: Geronimo Ibrahim M.D. DOA Cutoffs See comment. Normal [facility] Comment on above: Result Comment: Drug s of Abuse, Urine Presumptive Positive Cutoff Concentrations.Amphetamine/Methamphetamine: 1000 ng/mlBarbiturates: 200 ng/mlBenzodiazepines and metabolities: 200 ng/mlCannabinoids: 50 ng/mlCocaine/Benzoylecgonine: 300 ng/mlMethadone:300 ng/mlOpiates: 300 ng/mlOxycodone/Oxymorphone: 100 ng/ml Performed By: #### D RUGSCRU ####Unless otherwise noted, all testing performed by [address], [place] [phone]: [id number] Director: Geronimo Ibrahim M.D. Methadone,Ur None Detected Normal None Detected [facility] Comment on above: Performed By: #### D RUGSCRU ####Unless otherwise noted, all testing performed by [address] [phone]: [id number] Director: Geronimo Ibrahim M.D. Opiates,Ur None Detected Normal None Detected [facility] Comment on above: Performed By: #### D FAUSTINO ####Unless otherwise noted, all testing performed by [address] [phone]: [id number] Director: Geronimo Ibrahim M.D. Oxycodone, Urine None Detected Normal None Detected [facility] Comment on above: Result Comment: THES E DRUGS OF ABUSE TESTS ARE PROVIDED A MEDICAL SCREENING ONLY.POSITIVE RESULTS ARENOT CONFIRMED BY GCMS Performed By: #### D FAUSTINO ####Unless otherwise noted, all testing performed by [address] [phone]: [id number] Director: Geronimo Ibrahim M.D. SENDOUT TESTon 11-15-2017 SENDOUT TEST SENT TO [facility] Comment on above: Result Comment: Test ing performed at [place] [address] Performed By: #### K OHP ####[place] [address] CBCon 10-26-2017 ABSOLUTE BAS 0.0 X10 [facility] Comment on above: Result Comment: Test ing performed at [facility], [place], [place] [address] Performed By: #### K OHP ####Testing performed at [address] [address] ABSOLUTE EOS 0.10 X10 Normal [facility] Comment on above: Performed By: #### K OHP ####Testing performed at [address] [address] ABSOLUTE NEUTROPHIL COUNT 6.2 x10 Normal 1.0-7.0 [facility] Comment on above: Performed By: #### K OHP ####Testing performed at [address] [address] Basophils/100 WBC Auto (Bld) 0.5 % Normal 0.0-2.0 [facility] Comment on above: Performed By: #### K OHP ####Testing performed at [address] [address] DTYPE AUTO DIFF Normal [facility] Comment on above: Performed By: #### K OHP ####Testing performed at [address] [address] Eosinophils/100 WBC Auto (Bld) 1.4 % Normal 0.0-11.0 [facility] Comment on above: Performed By: #### K OHP ####Testing performed at [address] [address] Lymphocytes Auto #/vol (Bld) 1.50 X10 Normal [facility] Comment on above: Performed By: #### K OHP ####Testing performed at [address] [address] Lymphocytes/100 WBC Auto (Bld) 17.7 % Low 20.0-55.0 [facility] Comment on above: Performed By: #### K OHP ####Testing performed at [address] [address] Monocytes Auto #/vol (Bld) 0.6 X10 Normal [facility] Comment on above: Performed By: #### K OHP ####Testing performed at [address] [address] Monocytes/100 WBC Auto (Bld) 6.7 % Normal 0.0-10.0 [facility] Comment on above: Performed By: #### K OHP ####Testing performed at [address] [address] Neutrophils/100 WBC Auto (Bld) 73.7 % Normal 37.0-75.0 [facility] Comment on above: Performed By: #### K OHP ####Testing performed at [place] [id number] Erythrocyte distribution width Auto Ratio (RBC) 14.6 % High 11.5-14.5 [facility] Comment on above: Performed By: #### K OHP ####[place] [address] Hematocrit Auto Volume Fraction (Bld) 37.3 % Normal 36.0-48.0 [facility] Comment on above: Performed By: #### K OHP ####[place] [address] Hemoglobin mass conc (Bld) 12.4 g/dL Normal 12.0-16.0 [facility] Comment on above: Performed By: #### K OHP ####Testing performed at [place] [id number] MCH Auto Entitic mass (RBC) 27.0 pg Normal 26.0-35.0 [facility] Comment on above: Performed By: #### K OHP ####Testing performed at [place] [address] MCHC Auto mass conc (RBC) 33.4 g/dL Normal 27.0-37.0 [facility] Comment on above: Performed By: #### K OHP ####Testing performed at [place] [id number] MCV Auto Entitic volume (RBC) 81.0 fL Normal 80.0-100.0 [facility] Comment on above: Performed By: #### K OHP ####Testing performed at [address] [address] Platelet mean volume Auto Entitic volume (Bld) 8.4 fL Normal 7.4-11.0 [facility] Comment on above: Performed By: #### K OHP ####[place] [address] Platelets Auto #/vol (Bld) 247 /cmm Normal 130.0-400.0 [facility] Comment on above: Performed By: #### K OHP ####[place] [address] RBC Auto #/vol (Bld) 4.60 /cmm Normal 4.0-5.[address] [facility] Comment on above: Performed By: #### K OHP ####[place] [address] WBC Auto #/vol (Bld) 8.4 /cmm Normal 3.6-11.[address] [facility] Comment on above: Performed By: #### K OHP ####[place] [address] CT ABDOMEN/PELVIS WITHOUT CO NTRASTon 10-26-2017 CT [...] findings in the abdomen or pelvis. Normal [facility] ESRon 10-26-2017 ESR Velocity (Bld) 60 mm/h High 0-20 [facility] Comment on above: Result Comment: Test ing performed at [place] [address] Performed By: #### K OHP ####[place] [address] BHCG,QUANTITATIVEon 10-25-20 17 CG,QUANTITATIVE [address].00 MIU/ML Normal [facility] Comment on above: Result Comment: [facility] INTERPRETIVE RANGES: NON FEMALE 0-6 MIU/MLMALE ADULT [...] qualitative hCG testing of urine.Testing performed at [place] [address] Performed By: #### K OHP ####[place] [address] BMP FASTINGon 10-25-2017 Anion gap 3 molar conc 12 mmol/L Normal 8-16 [facility] Comment on above: Performed By: #### K OHP ####[place] [address] Calcium mass conc 9.3 mg/dL Normal 8.4-10.2 [facility] Comment on above: Performed By: #### K OHP ####[place] [address] Chloride molar conc 104 mmol/L Normal 98-107 [facility] Comment on above: Performed By: #### K OHP ####[place] [address] CO2 molar conc 20 mmol/L Low 22-30 [facility] Comment on above: Performed By: #### K OHP ####[place] [address] Creatinine mass conc 0.7 mg/dL Normal 0.7-1.[address] [facility] Comment on above: Performed By: #### K OHP ####[place] [address] EST. GFR, >60 Normal [facility] Comment on above: Performed By: #### K OHP ####[place] [address] EST. GFR,Non >60 Normal [facility] Comment on above: Performed By: #### K OHP ####[place] [address] GFR/1.73 sq M predicted among non-blacks MDRD vol rate/area (S/P/Bld) Average GFR for 20-29 years old = 116. Normal [facility] Comment on above: Result Comment: [employer] frantz Kidney disease, GFR = <60.Kidney failure, GFR = <15.The GFR estimate is not adjusted for extreme body surface area or acute process, nor has it been validated for women or ethnic groups other than and .Testing performed at [place] [address] Performed By: #### K OHP ####[place] [address] Glucose mass conc 101 mg/dL High 70-100 [facility] Comment on above: Result Comment: NORM AL <100 mg/dLPREDIABETES 101-126 mg/dLDIABETES 126 mg/dL or higher Performed By: #### K OHP ####[place] [address] Potassium molar conc 3.5 mmol/L Normal 3.5-5.[address] [facility] Comment on above: Performed By: #### K OHP ####[place] [address] Sodium molar conc 136 mmol/L Low 137-145 [facility] Comment on above: Performed By: #### K OHP ####[place] [address] Urea nitrogen mass conc (Bld) 6 mg/dL Low 7-20 [facility] Comment on above: Performed By: #### K OHP ####[place] [address] CBCon 10-25-2017 ABSOLUTE BAS 0.2 X10 Normal [facility] Comment on above: Result Comment: Test ing performed at [place] [address] Performed By: #### K OHP ####[place] [address] ABSOLUTE EOS 0.20 X10 Normal [facility] Comment on above: Performed By: #### K OHP ####[place] [address] ABSOLUTE NEUTROPHIL COUNT 9.6 x10 High 1.0-7.0 [facility] Comment on above: Performed By: #### K OHP ####[place] [address] Basophils/100 WBC Auto (Bld) 1.3 % Normal 0.0-2.0 [facility] Comment on above: Performed By: #### K OHP ####[place] [address] DTYPE AUTO DIFF Normal [facility] Comment on above: Performed By: #### K OHP ####Testing performed at [address] [address] Eosinophils/100 WBC Auto (Bld) 1.6 % Normal 0.0-11.0 [facility] Comment on above: Performed By: #### K OHP ####Testing performed at [address] [address] Lymphocytes Auto #/vol (Bld) 2.50 X10 Normal [facility] Comment on above: Performed By: #### K OHP ####Testing performed at [address] [address] Lymphocytes/100 WBC Auto (Bld) 18.7 % Low 20.0-55.0 [facility] Comment on above: Performed By: #### K OHP ####Testing performed at [address] [address] Monocytes Auto #/vol (Bld) 0.7 X10 Normal [facility] Comment on above: Performed By: #### K OHP ####Testing performed at [address] [address] Monocytes/100 WBC Auto (Bld) 5.3 % Normal 0.0-10.0 [facility] Comment on above: Performed By: #### K OHP ####Testing performed at [address] [address] Neutrophils/100 WBC Auto (Bld) 73.1 % Normal 37.0-75.0 [facility] Comment on above: Performed By: #### K OHP ####Testing performed at [address] [address] Erythrocyte distribution width Auto Ratio (RBC) 14.7 % High 11.5-14.5 [facility] Comment on above: Performed By: #### K OHP ####Testing performed at [address] [address] Hematocrit Auto Volume Fraction (Bld) 39.5 % Normal 36.0-48.0 [facility] Comment on above: Performed By: #### K OHP ####[place] [address] Hemoglobin mass conc (Bld) 13.0 g/dL Normal 12.0-16.0 [facility] Comment on above: Performed By: #### K OHP ####[place] [address] MCH Auto Entitic mass (RBC) 26.7 pg Normal 26.0-35.0 [facility] Comment on above: Performed By: #### K OHP ####[place] [address] MCHC Auto mass conc (RBC) 32.8 g/dL Normal 27.0-37.0 [facility] Comment on above: Performed By: #### K OHP ####[place] [address] MCV Auto Entitic volume (RBC) 81.3 fL Normal 80.0-100.0 [facility] Comment on above: Performed By: #### K OHP ####[place] [address] Platelet mean volume Auto Entitic volume (Bld) 8.3 fL Normal 7.4-11.0 [facility] Comment on above: Result Comment: Test ing performed at [place] [address] Performed By: #### K OHP ####[place] [address] Platelets Auto #/vol (Bld) 289 /cmm Normal 130.0-400.0 [facility] Comment on above: Performed By: #### K OHP ####[place] [address] RBC Auto #/vol (Bld) 4.85 /cmm Normal 4.0-5.[address] [facility] Comment on above: Performed By: #### K OHP ####[place] [address] WBC Auto #/vol (Bld) 13.1 /cmm High 3.6-11.[address] [facility] Comment on above: Performed By: #### K OHP ####[place] [address] LACTIC ACIDon 10-25-2017 Lactate molar conc 1.5 mmol/L Normal 0.7-2.1 [facility] Comment on above: Result Comment: Test ing performed at [place] [address] Performed By: #### K OHP ####[place] [address] LIVER PANELon 10-25-2017 Albumin mass conc 4.4 g/dL Normal 2.9-5.3 [facility] Comment on above: Performed By: #### K OHP ####[place] [address] ALP enzyme act/vol 74 U/L Normal 38-126 [facility] Comment on above: Performed By: #### K OHP ####[place] [address] ALT enzyme act/vol 27 U/L Normal 9-52 [facility] Comment on above: Result Comment: Test ing performed at [place] [address] Performed By: #### K OHP ####[place] [address] AST enzyme act/vol 14 U/L Normal 14-36 [facility] Comment on above: Performed By: #### K OHP ####[place] [address] Bilirubin mass conc 1.2 mg/dL Normal 0.2-1.3 [facility] Comment on above: Performed By: #### K OHP ####[place] [address] Bilirubin.direct mass conc 0.3 mg/dL Normal 0-0.4 [facility] Comment on above: Performed By: #### K OHP ####[place] [address] Protein mass conc 8.0 g/dL Normal 6.3-8.2 [facility] Comment on above: Performed By: #### K OHP ####[place] [address] RAPID FLU Aon 10-25-2017 INFLUENZA A AG Negative Normal NEGATIVE [facility] Comment on above: Performed By: #### K OHP ####[place] [address] INFLUENZA B AG Negative Normal NEGATIVE [facility] Comment on above: Result Comment: TEST ING PERFORMED BY NAATesting performed at [place] [address] Performed By: #### K OHP ####[place] [address] URINE MACROSCOPICon 10-25-20 17 Bilirubin Ql (U) SMALL Abnormal NEGATIVE [facility] Comment on above: Performed By: #### U MAC, UMIC ####[place] [address] Clarity Nom (U) SLIGHTLY CLOUDY Abnormal CLEAR [facility] Comment on above: Performed By: #### U MAC, UMIC ####[place] [address] Color Nom (U) YELLOW Normal YELLOW [facility] Comment on above: Performed By: #### U MAC, UMIC ####[place] [address] Glucose Ql (U) Negative Normal NEGATIVE [facility] Comment on above: Performed By: #### U MAC, UMIC ####[place] [address] pH Test strip (U) 5.5 [pH] Normal 5.0-7.0 [facility] Comment on above: Performed By: #### U MAC, UMIC ####[place] [address] URINE HEMOGLOBIN Negative Normal NEGATIVE [facility] Comment on above: Performed By: #### U MAC, UMIC ####[place] [address] URINE KETONE 15 mg/dl Abnormal NEGATIVE [facility] Comment on above: Performed By: #### U MAC, UMIC ####[place] [address] URINE LEUKOTEST Negative Normal NEGATIVE [facility] Comment on above: Result Comment: Test ing performed at [place] [address] Performed By: #### U MAC, UMIC ####[place] [address] URINE NITRATES Negative Normal NEGATIVE [facility] Comment on above: Performed By: #### U MAC, UMIC ####[place] [address] URINE SPEC GRAVITY >1.030 High 1.010-1.025 [facility] Comment on above: Performed By: #### U MAC, UMIC ####[place] [address] URINE TOTAL PROTEIN TRACE Abnormal NEGATIVE [facility] Comment on above: Performed By: #### U MAC, UMIC ####[place] [address] Urobilinogen Test strip Qn (U) 0.2 mg/dl Normal 0.2-1.0 [facility] Comment on above: Performed By: #### U MAC, UMIC ####[place] [address] URINE MICROSCOPICon 10-25-20 17 BACTERIA 1+ Abnormal NEGATIVE [facility] Comment on above: Performed By: #### U MAC, UMIC ####[place] [address] CASTS NONE Normal NONE [facility] Comment on above: Performed By: #### U MAC, UMIC ####[place] [address] CRYSTAL NONE Normal NONE [facility] Comment on above: Performed By: #### U MAC, UMIC ####[place] [address] EPITHELIAL CELLS 1 TO 5 Normal [facility] Comment on above: Performed By: #### U MAC, UMIC ####[place] [address] MUCUS TRACE Abnormal NEGATIVE [facility] Comment on above: Performed By: #### U MAC, UMIC ####[place] [address] RBC Test strip #/vol (U) Negative Normal NEGATIVE [facility] Comment on above: Performed By: #### U MAC, UMIC ####[place] [address] URINE COMMENT CULTURE CRITERIA NOT MET, NO CULTURE PERFORMED. Normal [facility] Comment on above: Result Comment: Test ing performed at [place] [address] Performed By: #### U MAC, UMIC ####[place] [address] URINE WBC'S 1 TO 5 Normal NEGATIVE [facility] Comment on above: Performed By: #### U MAC, UMIC ####[place] [address] CHLAM/GC AMPLIFon 10-17-2017 CHLAMYDIA NUC. AMP Negative Normal Negative [facility] GONOCOCCUS NUC. AMP Negative Normal Negative [facility] Comment on above: Result Comment: [facility] BHCG,QUANTITATIVEon 10-15-20 BHCG,QUANTITATIVE [address].00 MIU/ML Normal [facility] Comment on above: Result Comment: BHCG [...] qualitative hCG testing of urine.Testing performed at [place] [address] Performed By: #### A CBC, CHEM7F, BHCG2 ####[place] [address] CBCon 10-15-2017 ABSOLUTE BAS 0.1 X10 Normal [facility] Comment on above: Result Comment: Test ing performed at [place] [address] Performed By: #### A CBC, CHEM7F, BHCG2 ####[place] [address] ABSOLUTE EOS 0.20 X10 Normal [facility] Comment on above: Performed By: #### A CBC, CHEM7F, BHCG2 ####[place] [address] ABSOLUTE NEUTROPHIL COUNT 7.6 x10 High 1.0-7.0 [facility] Comment on above: Performed By: #### A CBC, CHEM7F, BHCG2 ####[place] [address] Basophils/100 WBC Auto (Bld) 0.8 % Normal 0.0-2.0 [facility] Comment on above: Performed By: #### A CBC, CHEM7F, BHCG2 ####[place] [address] DTYPE AUTO DIFF Normal [facility] Comment on above: Performed By: #### A CBC, CHEM7F, BHCG2 ####Testing performed at [address] [address] Eosinophils/100 WBC Auto (Bld) 2.0 % Normal 0.0-11.0 [facility] Comment on above: Performed By: #### A CBC, CHEM7F, BHCG2 ####Testing performed at [address] [address] Lymphocytes Auto #/vol (Bld) 1.40 X10 Normal [facility] Comment on above: Performed By: #### A CBC, CHEM7F, BHCG2 ####Testing performed at [address] [address] Lymphocytes/100 WBC Auto (Bld) 14.3 % Low 20.0-55.0 [facility] Comment on above: Performed By: #### A CBC, CHEM7F, BHCG2 ####Testing performed at [address] [address] Monocytes Auto #/vol (Bld) 0.6 X10 Normal [facility] Comment on above: Performed By: #### A CBC, CHEM7F, BHCG2 ####Testing performed at [address] [address] Monocytes/100 WBC Auto (Bld) 5.9 % Normal 0.0-10.0 [facility] Comment on above: Performed By: #### A CBC, CHEM7F, BHCG2 ####Testing performed at [address] [address] Neutrophils/100 WBC Auto (Bld) 77.0 % High 37.0-75.0 [facility] Comment on above: Performed By: #### A CBC, CHEM7F, BHCG2 ####Testing performed at [address] [address] Erythrocyte distribution width Auto Ratio (RBC) 15.1 % High 11.5-14.5 [facility] Comment on above: Performed By: #### A CBC, CHEM7F, BHCG2 ####[place] [address] Hematocrit Auto Volume Fraction (Bld) 36.8 % Normal 36.0-48.0 [facility] Comment on above: Performed By: #### A CBC, CHEM7F, BHCG2 ####[place] [address] Hemoglobin mass conc (Bld) 12.3 g/dL Normal 12.0-16.0 [facility] Comment on above: Performed By: #### A CBC, CHEM7F, BHCG2 ####Testing performed [place] [address] MCH Auto Entitic mass (RBC) 27.2 pg Normal 26.0-35.0 [facility] Comment on above: Performed By: #### A CBC, CHEM7F, BHCG2 ####[place] [address] MCHC Auto mass conc (RBC) 33.3 g/dL Normal 27.0-37.0 [facility] Comment on above: Performed By: #### A CBC, CHEM7F, BHCG2 ####[place] [address] MCV Auto Entitic volume (RBC) 81.7 fL Normal 80.0-100.0 [facility] Comment on above: Performed By: #### A CBC, CHEM7F, BHCG2 ####[place] [address] Platelet mean volume Auto Entitic volume (Bld) 8.4 fL Normal 7.4-11.0 [facility] Comment on above: Performed By: #### A CBC, CHEM7F, BHCG2 ####[place] [address] Platelets Auto #/vol (Bld) 237 /cmm Normal 130.0-400.0 [facility] Comment on above: Performed By: #### A CBC, CHEM7F, BHCG2 ####[place] [address] RBC Auto #/vol (Bld) 4.51 /cmm Normal 4.0-5.[address] [facility] Comment on above: Performed By: #### A CBC, CHEM7F, BHCG2 ####[place] [address] WBC Auto #/vol (Bld) 9.9 /cmm Normal 3.6-11.[address] [facility] Comment on above: Performed By: #### A CBC, CHEM7F, BHCG2 ####[place] [address] CHEM 7 FASTINGon 10-15-2017 Chloride molar conc 106 mmol/L Normal 98-107 [facility] Comment on above: Performed By: #### A CBC, CHEM7F, BHCG2 ####[place] [address] CO2 molar conc 21 mmol/L Low 22-30 [facility] Comment on above: Performed By: #### A CBC, CHEM7F, BHCG2 ####[place] [address] Creatinine mass conc 0.7 mg/dL Normal 0.7-1.[address] [facility] Comment on above: Performed By: #### A CBC, CHEM7F, BHCG2 ####[place] [address] EST. GFR, >60 Normal [facility] Comment on above: Performed By: #### A CBC, CHEM7F, BHCG2 ####[place] [address] EST. GFR,Non >60 Normal [facility] Comment on above: Performed By: #### A CBC, CHEM7F, BHCG2 ####Testing performed at [facility] [address] [place] [address] GFR/1.73 sq M predicted among non-blacks MDRD vol rate/area (S/P/Bld) Average GFR for 20-29 years old = 116. Normal [facility] Comment on above: Result Comment: Webmethods Architect frantz Kidney disease, GFR = <60.Kidney failure, GFR = <15.The GFR estimate is not adjusted for extreme body surface area or acute process, nor has it been validated for women or ethnic groups other than and .Testing performed at [place] [address] Performed By: #### A CBC, CHEM7F, BHCG2 ####[place] [address] Glucose mass conc 90 mg/dL Normal 70-100 [facility] Comment on above: Result Comment: NORM AL <100 mg/dLPREDIABETES 101-126 mg/dLDIABETES 126 mg/dL or higher Performed By: #### A CBC, CHEM7F, BHCG2 ####[place] [address] Potassium molar conc 3.4 mmol/L Low 3.5-5.[address] [facility] Comment on above: Performed By: #### A CBC, CHEM7F, BHCG2 ####[place] [address] Sodium molar conc 137 mmol/L Normal 137-145 [facility] Comment on above: Performed By: #### A CBC, CHEM7F, BHCG2 ####[place] [address] Urea nitrogen mass conc (Bld) 4 mg/dL Low 7-20 [facility] Comment on above: Performed By: #### A CBC, CHEM7F, BHCG2 ####[place] [address] GENITAL CULTUREon 10-15-2017 GENITAL CULTURE SPECIMEN DESCRIPTION [...] PRESENT * Result Note: Testing performed at [place] [address] *REPORT STATUS 10/17/2017 * Result Note: FINAL * Normal [facility] Comment on above: Performed By: #### G ENC ####[place] [address] NATA PREPARATIONon 10-15-2017 NATA PREPARATION SPECIMEN DESCRIPTION VAGINAL SPECIMENKOH PREP NO YEAST SEEN * Result Note: VERIFIED BY DUP TESTING * * Result Note: Testing performed at [place] [address] *REPORT STATUS 10/15/2017 * Result Note: FINAL * Normal [facility] Comment on above: Performed By: #### K OHP ####[place] [address] US OB TRANSVAGINAL/CERVICAL LENGTHon 10-15-2017 US OB [...] weeks gestation for evaluation of anatomy. Normal [facility] WET PREPon 10-15-2017 WET PREP SPECIMEN DESCRIPTION VAGINAL SPECIMENWET PREP NO TRICHOMONAS SEEN * Result Note: NO CLUE CELLS SEEN * * Result Note: VERIFIED BY DUP TESTING * * Result Note: Testing performed at [place], [place] [address] *REPORT STATUS 10/15/2017 * Result Note: FINAL * Normal [facility] Comment on above: Performed By: #### W ETP ####Testing performed at [facility] [place] [address] CMP FASTINGon 09-03-2017 A:G RATIO 1.1 RATIO Low 1.3-2.2 [facility] Comment on above: Performed By: #### C MPF ####Testing performed at [place] [id number] Albumin mass conc 3.9 G/dl Normal 3.5-5.0 [facility] Comment on above: Performed By: #### C MPF ####[place] [address] Creatinine mass conc 0.8 mg/dL Normal 0.52-1.04 [facility] Comment on above: Performed By: #### C MPF ####Testing performed at [address] [address] EST. GFR, >[address] [facility] Comment on above: Performed By: #### C MPF ####Testing performed at [address] [address] EST. GFR,Non >[address] [facility] Comment on above: Performed By: #### C MPF ####Testing performed at [place] [id number] GFR/1.73 sq M predicted among non-blacks MDRD vol rate/area (S/P/Bld) Average GFR for 20-29 years old = 116. Normal [facility] Comment on above: Result Comment: Webmethods Architect frantz Kidney disease, GFR = <60.Kidney failure, GFR = <15.The GFR estimate is not adjusted for extreme body surface area or acute process, nor has it been validated for women or ethnic groups other than and . Performed By: #### C MPF ####Testing performed at [place] [id number] Urea nitrogen mass conc (Bld) 6 mg/dL Low 7-20 [facility] Comment on above: Performed By: #### C MPF ####Testing performed at [address] [address] ALP enzyme act/vol 75 U/L Normal 38-126 [facility] Comment on above: Performed By: #### C MPF ####Testing performed at [address] [address] ALT enzyme act/vol 18 U/L Normal 14-54 [facility] Comment on above: Performed By: #### C MPF ####Testing performed at [address] [address] AST enzyme act/vol 23 U/L Normal 15-41 [facility] Comment on above: Performed By: #### C MPF ####Testing performed at [address] [address] Bilirubin mass conc 1.2 mg/dL Normal 0.2-1.2 [facility] Comment on above: Performed By: #### C MPF ####Testing performed at [address] [address] Protein mass conc 7.4 g/dL Normal 6.3-8.2 [facility] Comment on above: Performed By: #### C MPF ####Testing performed at [address] [address] Calcium mass conc 8.9 mg/dL Normal 8.4-10.2 [facility] Comment on above: Performed By: #### C MPF ####Testing performed at [address] [address] Chloride molar conc 108 mmol/L High 98-107 [facility] Comment on above: Performed By: #### C MPF ####Testing performed at [address] [address] CO2 molar conc 19 mmol/L Critically low 22-30 [facility] Comment on above: Result Comment: Resu lt called to read back by: CHUCK FLETCHER 09/03/2017 @ 18:34 by DDD Performed By: #### C MPF ####Testing performed at [address] [address] Glucose mass conc 96 mg/dL Normal 70-100 [facility] Comment on above: Result Comment: NORM AL <100 mg/dLPREDIABETES 101-126 mg/dLDIABETES 126 mg/dL or higher Performed By: #### C MPF ####Testing performed at [address] [address] Potassium molar conc 3.8 mmol/L Normal 3.5-5.1 [facility] Comment on above: Performed By: #### C MPF ####Testing performed at [address] [address] Sodium molar conc 138 mmol/L Normal 137-145 [facility] Comment on above: Performed By: #### C MPF ####Testing performed at [address] [address] [address] ABDOMEN/PELVIS WITHOUT CO NTRASTon 09-03-2017 CT ABDOMEN/PELVIS WITHOUT CONTRAST EXAM TYPE: CT ABDOMEN/PELVIS WITHOUT CONTRASTEXAM DATE AND TIME: 09/03/2017 6:23 PM.INDICATION: 26 [id number] with bleeding. History of Crohn's disease. Prior [...] is predominantly decompressed. 3. Normal appendix. Normal [facility] ED NOTEon 09-03-[address] [facility] [address] [facility] Normal [facility] Normal [facility] ED PROVIDERon 09-03-2017 [facility] HIM CAC NOTES Normal [facility] NOT[facility] Normal [facility] URINE HCG QUALon 09-03-2017 HCG.beta subunit ( test) Ql (U) Negative Normal NEGATIVE [facility] Comment on above: Performed By: #### U HCGT, UMAC ####Testing performed at [address] [address] URINE MACROSCOPICon 09-03-20 17 Bilirubin Ql (U) Negative Normal NEGATIVE [facility] Comment on above: Performed By: #### U HCGT, UMAC ####[place] [address] Clarity Nom (U) CLEAR Abnormal CLEAR [facility] Comment on above: Performed By: #### U HCGT, UMAC ####[place] [address] Color Nom (U) YELLOW Normal YELLOW [facility] Comment on above: Performed By: #### U HCGT, UMAC ####Testing performed at [address] [address] Glucose Ql (U) Negative Normal NEGATIVE [facility] Comment on above: Performed By: #### U HCGT, UMAC ####Testing performed at [address] [address] pH Test strip (U) 6.0 [pH] Normal 5.0-7.0 [facility] Comment on above: Performed By: #### U HCGT, UMAC ####Testing performed at [address] [address] URINE HEMOGLOBIN Negative Normal NEGATIVE [facility] Comment on above: Performed By: #### U HCGT, UMAC ####Testing performed at [address] [address] URINE KETONE Negative Normal NEGATIVE [facility] Comment on above: Performed By: #### U HCGT, UMAC ####Testing performed at [address] [address] URINE LEUKOTEST Negative Normal NEGATIVE [facility] Comment on above: Performed By: #### U HCGT, UMAC ####Testing performed at [address] [place] [address] URINE NITRATES Negative Normal NEGATIVE [facility] Comment on above: Performed By: #### U HCGT, UMAC ####Testing performed at [address] [place] [address] URINE SPEC GRAVITY 1.015 Normal 1.010-1.025 [facility] Comment on above: Performed By: #### U HCGT, UMAC ####Testing performed at [address] [place] [address] URINE TOTAL PROTEIN Negative Normal NEGATIVE [facility] Comment on above: Performed By: #### U HCGT, UMAC ####Testing performed at [address] [place] [address] Urobilinogen Test strip Qn (U) 0.2 mg/dl Normal 0.2-1.0 [facility] Comment on above: Performed By: #### U HCGT, UMAC ####Testing performed at [address] [place] [address] Comp Metabolic Panelon 08-28 Alanine aminotransferase (ALT) 29 U/L Normal 12-78 [facility] Comment on above: Performed By: #### H GURJIT DOLL3 ####[address] [place] [address] Albumin 3.8 g/dL Normal 3.4-5.0 [facility] Comment on above: Performed By: #### H SHARMILA CMP3 ####[place] [address]wr[address] [place] [address] Alkaline phosphatase (ALP) 107 U/L Normal 45-117 [facility] Comment on above: Performed By: #### H SHARMILA CMP3 ####[address] [place] [address] Anion gap 10 mmol/L Normal [facility] Comment on above: Performed By: #### H SHARMILA CMP3 ####[place] [address]br[address] [place] [address] Aspartate aminotransferase (AST) 16 U/L Normal 15-37 [facility] Comment on above: Performed By: #### H SHARMILA CMP3 ####[place] [place] [address] Bilirubin (total) 1.0 mg/dL Normal 0.2-1.0 [facility] Comment on above: Performed By: #### H EMDF, CMP3 ####[place] [address] [place] [address] Calcium 9.1 mg/dL Normal 8.2-10.1 [facility] Comment on above: Performed By: #### H EMDF, CMP3 ####[address] [place] [address] Chloride 102 mmol/L Normal 98-109 [facility] Comment on above: Performed By: #### H EMDF, CMP3 ####[place] [address] [place] [address] CO2 27 mmol/L Normal 21-32 [facility] Comment on above: Performed By: #### H SHARMILA, CMP3 ####[place] [address] [place] [address] Creatinine 0.94 mg/dL Normal 0.55-1.40 [facility] Comment on above: Performed By: #### H EMDF, CMP3 ####[address] [place] [address] eGFR (black) mL/min/{1.73_m2} Normal >60 [facility] Comment on above: Performed By: #### H EMDF, CMP3 ####[place] Y[address]rs[address] [place] [address] eGFR (non-black) mL/min/{1.73_m2} Normal >60 [facility] Comment on above: Result Comment: Sour ce- MDRD equation with creatinine calibration to IDMS(NKDEP)eGFR not recommended for drug dose adjustment Performed By: #### H EMDF, CMP3 ####[place] [address] [place] [address] Glucose mass conc 86 mg/dL Normal 70-100 [facility] Comment on above: Result Comment: . Performed By: #### H EMDF, CMP3 ####[place] [address] [place] [address] Potassium molar conc 3.4 mmol/L Low 3.5-5.1 [facility] Comment on above: Performed By: #### H EMDF, CMP3 ####[facility] HospitalDjutob[address]690 [place] [address] Protein 8.2 g/dL Normal 6.4-8.2 [facility] Comment on above: Performed By: #### H EMDF, CMP3 ####[place] [id number] [place] [address] Sodium 139 mmol/L Normal 135-145 [facility] Comment on above: Performed By: #### H EMDF, CMP3 ####Bruno [address] [place] [address] Urea nitrogen 9 mg/dL Normal 7-25 [facility] Comment on above: Performed By: #### H EMDF, CMP3 ####[place] [id number] [place] [address] Hemogram w/ Autodiffon 08-28 Abs Baso Cnt 0.1 10*3/uL Normal 0.0-0.2 [facility] Comment on above: Performed By: #### H EMDF, CMP3 ####[facility] HospitalPvwgfh4102 [place] [address] Basophils/100 WBC Auto (Bld) 0.6 % Normal [facility] Comment on above: Performed By: #### H EMDF, CMP3 ####[place] [id number] [place] [address] Eosinophils 0.3 10*3/uL Normal 0.0-0.5 [facility] Comment on above: Performed By: #### H EMDBrooke, CMP3 ####[place] [id number] [place] [address] Eosinophils/100 leukocytes 2.9 % Normal [facility] Comment on above: Performed By: #### H EMDF, CMP3 ####[address] Fiornc[address] [place] [address] Erythrocyte distribution width Auto Ratio (RBC) 13.7 % Normal 11.5-14.5 [facility] Comment on above: Performed By: #### H EMDF, CMP3 ####[place] [id number] [place] [address] Erythrocytes (RBC) 5.35 10*6/uL High 3.80-5.20 [facility] Comment on above: Performed By: #### H EMDF, CMP3 ####[place] Yoeovi[address] [place] [address] Granulocytes/100 WBC (Bld) 64.4 % Normal [facility] Comment on above: Performed By: #### H EMDF, CMP3 ####[place] Tklrjz[address]Select [facility] [place] [address] Hematocrit (HCT) 42.8 % Normal 35.0-47.0 [facility] Comment on above: Performed By: #### H EMDF CMP3 ####[address] [place] [address] Hemoglobin mass conc (Bld) 13.9 g/dL Normal 11.7-16.0 [facility] Comment on above: Performed By: #### H SHARMILA CMP3 ####[address] [place] [address] Lymphocytes 2.6 10*3/uL Normal 1.0-4.3 [facility] Comment on above: Performed By: #### H EMDBrooke CMP3 ####Bruno [address] [place] [address] Lymphocytes/100 leukocytes 25.5 % Normal [facility] Comment on above: Performed By: #### H EMDBrooke CMP3 ####[place] [place] [address] MCH 26.0 pg Normal 26.0-34.0 [facility] Comment on above: Performed By: #### H EMDBrooke CMP3 ####[place] Pzkuvq[address] [facility]Select [facility] [place] [address] MCHC mass conc (RBC) 32.5 % Normal 32.0-36.0 [facility] Comment on above: Performed By: #### H EMDF CMP3 ####[place] Iraafy[address] [facility]Select [facility] [place] [address] MCV 79.9 fL Normal 79.0-98.0 [facility] Comment on above: Performed By: #### H EMDF, CMP3 ####[address] [place] [address] Monocytes 0.7 10*3/uL Normal 0.0-0.8 [facility] Comment on above: Performed By: #### H SHARMILA CMP3 ####[address] K[address]mfr[address] [place] [address] Monocytes/100 leukocytes 6.6 % Normal [facility] Comment on above: Performed By: #### H SHARMILA CMP3 ####[address] Y[address]vqm[address] [place] [address] Neutrophils 6.5 10*3/uL Normal 1.8-7.0 [facility] Comment on above: Performed By: #### H SHARMILA CMP3 ####Lugo Xlkefm[address] [facility]Select [facility] [place] [address] Platelet mean volume (PMV) 8.6 fL Normal 7.4-10.4 [facility] Comment on above: Performed By: #### H SHARMILA CMP3 ####Lugo Nrqejx[address] [facility]Select [facility] [place] [address] Platelets 279 10*3/uL Normal 140-440 [facility] Comment on above: Performed By: #### H SHARMILA CMP3 ####Bruno [address] [place] [address] WBC (Leukocytes) 10.2 10*3/uL Normal 3.6-10.7 [facility] Comment on above: Performed By: #### H SHARMILA CMP3 ####Lugo Bvgthj[address] [facility]Select [facility] [place] [address] Urinalysis,Macroon 7 Bilirubin (direct) Negative Normal Negative [facility] Comment on above: Performed By: #### U AMAC, UAMIC ####L[address]o Htwich[address] [place] [address] Ketone,Urine Negative Normal Negative [facility] Comment on above: Performed By: #### U AMAC, UAMIC ####Lugo Ilvlza[address] [place] [address] Occult Blood,Ur Negative Normal Negative [facility] Comment on above: Performed By: #### U AMAC, UAMIC ####Lugo Vfsvfw[address] [place] [address] Specific [place],Urine 1.005 Normal 1.005-1.030 [facility] Comment on above: Performed By: #### U AMAC, UAMIC ####Lugo Ytaadr[address] [place] [address] Total Protein,Urine Negative Normal Negative [facility] Comment on above: Performed By: #### U AMAC, UAMIC ####Lugo X[address] [place] [address] Urine, appearance Clear Normal Clear [facility] Comment on above: Performed By: #### U AMAC, UAMIC ####L[place]o Jpl[address] [place] [address] Urine, color Yellow Normal Lt. Yellow [facility] Comment on above: Performed By: #### U AMAC, UAMIC ####Lugo [address]se[address] [place] [address] Urine, glucose presence NEG (Normal) Normal Negative [facility] Comment on above: Performed By: #### U AMAC, UAMIC ####Lugo Endell[address] [place] [address] Urine, nitrite presence Negative Normal Negative [facility] Comment on above: Performed By: #### U AMAC, UAMIC ####Lugo Pjdspq[address] [place] [address] Urine, pH 7.0 [pH] Normal 5.0-8.0 [facility] Comment on above: Performed By: #### U AMAC, UAMIC ####Lugo J[address] [place] [address] Urine, urobilinogen Normal (0.2) Normal 0-1 [facility] Comment on above: Performed By: #### U AMAC, UAMIC ####Lugo D[address]fjz[address] [place] [address] WBC (Leukocytes) Trace Normal Negative [facility] Comment on above: Performed By: #### U AMAC, UAMIC ####Lugo Iybw[address] [place] [address] Urinalysis,Microscopicon Urine, bacteria in sediment Many (51-100) Normal Negative [facility] Comment on above: Performed By: #### U AMAC, UAMIC ####Lugo Umcqma[address] [place] [address] Urine, epithelial cells in sediment 6-10 Normal 3-5 [facility] Comment on above: Performed By: #### U AMAC, UAMIC ####[facility] HospitalLeknki3253 [place] [address] Urine, erythrocytes in sediment by area 0-2 Normal 0-2 [facility] Comment on above: Performed By: #### U AMAC, UAMIC ####[facility] HospitalOmgovl4181 [place] [address] Urine, leukocytes in sedmiment 0-2 Normal 0-5 [facility] Comment on above: Performed By: #### U AMAC, UAMIC ####[facility] HospitalRflgbh5486 [place] [address] Influenza virus A and B and SARS-CoV-2 (COVID-19) Ag panel - Upper respiratory specim SARS-CoV-2 (COVID-19) RNA JYOTI+probe Ql (Resp) [facility] Work Phone: Vital Signs Date Time Vital Sign Value Performing Clinician Facility 05-13-2025 12:46-0400 Body height 162.6 cm Zoë Santana MD Work Phone: [facility] 05-13-2025 12:46-0400 Body mass index (BMI) [Ratio] 52.7 kg/m2 Zoë Santana MD Work Phone: [facility] 05-13-2025 12:46-0400 Body weight 139.25 kg Zoë Santana MD Work Phone: [facility] 05-13-2025 12:46-0400 Diastolic blood pressure 76 mm[Hg] Zoë Santana MD Work Phone: [facility] 05-13-2025 12:46-0400 Heart rate 62 /min Zoë Santana MD Work Phone: [facility] 05-13-2025 12:46-0400 SaO2% (BldA) [Mass fraction] 96 % Zoë Santana MD Work Phone: [facility] 05-13-2025 12:46-0400 Systolic blood pressure 128 mm[Hg] Zoë Santana MD Work Phone: [facility] 03-10-2025 12:49-0400 Body mass index (BMI) [Ratio] 52.03 kg/m2 Carline Pollack MD Work Phone: [facility] 03-10-2025 12:49-0400 Body weight 137.49 kg Carline Pollack MD Work Phone: [facility] 03-10-2025 12:49-0400 Diastolic blood pressure 77 mm[Hg] Carline Pollack MD Work Phone: [facility] 03-10-2025 12:49-0400 Heart rate 110 /min Carline Pollack MD Work Phone: [facility] 03-10-2025 12:49-0400 Systolic blood pressure 128 mm[Hg] Carline Pollack MD Work Phone: [facility] 03-03-2025 11:38-0400 Body height 162.6 cm Zoë Santana MD Work Phone: [facility] 03-03-2025 11:38-0400 Body mass index (BMI) [Ratio] 52.18 kg/m2 Zoë Santana MD Work Phone: [facility] 03-03-2025 11:38-0400 Body weight 137.89 kg Zoë Santana MD Work Phone: [facility] 03-03-2025 11:38-0400 Diastolic blood pressure 83 mm[Hg] Zoë Santana MD Work Phone: [facility] 03-03-2025 11:38-0400 Heart rate 93 /min Zoë Santana MD Work Phone: [facility] 03-03-2025 11:38-0400 SaO2% (BldA) [Mass fraction] 96 % Zoë Santana MD Work Phone: [facility] 03-03-2025 11:38-0400 Systolic blood pressure 142 mm[Hg] Zoë Santana MD Work Phone: [facility] 03-01-2025 17:52-0400 Body temperature 97.9 [degF] Jose Guadalupe Mills MD Work Phone: [facility] 03-01-2025 17:52-0400 Diastolic blood pressure 82 mm[Hg] Jose Guadalupe Mills MD Work Phone: [facility] 03-01-2025 17:52-0400 Heart rate 102 /min Jose Guadalupe Mills MD Work Phone: [facility] 03-01-2025 17:52-0400 Respiratory rate 16 /min Jose Guadalupe Mills MD Work Phone: [facility] 03-01-2025 17:52-0400 SaO2% (BldA) [Mass fraction] 100 % Jose Guadalupe Mills MD Work Phone: [facility] 03-01-2025 17:52-0400 Systolic blood pressure 131 mm[Hg] Jose Guadalupe Mills MD Work Phone: [facility] 03-01-2025 16:42-0400 Body height 162.6 cm Jose Guadalupe Mills MD Work Phone: [facility] 03-01-2025 16:42-0400 Body mass index (BMI) [Ratio] 52.98 kg/m2 Jose Guadalupe Mills MD Work Phone: [facility] 03-01-2025 16:42-0400 Body weight 140 kg Jose Guadalupe Mills MD Work Phone: [facility] 02-16-2025 14:11-0400 Body temperature 98.4 [degF] Kelli Matthews MD Work Phone: [facility] 02-16-2025 14:11-0400 Diastolic blood pressure 79 mm[Hg] Kelli Matthews MD Work Phone: [facility] 02-16-2025 14:11-0400 Heart rate 96 /min Kelli Matthews MD Work Phone: [facility] 02-16-2025 14:11-0400 Respiratory rate 20 /min Kelli Matthews MD Work Phone: [facility] 02-16-2025 14:11-0400 SaO2% (BldA) [Mass fraction] 99 % Kelli Matthews MD Work Phone: [facility] 02-16-2025 14:11-0400 Systolic blood pressure 146 mm[Hg] Kelli Matthews MD Work Phone: [facility] 02-16-2025 14:09-0400 Body height 163.8 cm Kelli Matthews MD Work Phone: [facility] 02-16-2025 14:09-0400 Body mass index (BMI) [Ratio] 50.67 kg/m2 Kelli Matthews MD Work Phone: [facility] 02-16-2025 14:09-0400 Body weight 136 kg Kelli Matthews MD Work Phone: [facility] 02-15-2025 10:20-0400 Body temperature 98.2 [degF] Earl Colorado MD Work Phone: [facility] 02-15-2025 10:20-0400 Diastolic blood pressure 71 mm[Hg] Earl Colorado MD Work Phone: [facility] 02-15-2025 10:20-0400 Heart rate 88 /min Earl Colorado MD Work Phone: [facility] 02-15-2025 10:20-0400 Respiratory rate 20 /min Earl Colorado MD Work Phone: [facility] 02-15-2025 10:20-0400 SaO2% (BldA) [Mass fraction] 99 % Earl Colorado MD Work Phone: [facility] 02-15-2025 10:20-0400 Systolic blood pressure 130 mm[Hg] Earl Colordao MD Work Phone: [facility] 02-09-2025 11:31-0400 Body mass index (BMI) [Ratio] 52.53 kg/m2 Earl Colorado MD Work Phone: [facility] 02-09-2025 11:31-0400 Body weight 141 kg Earl Colorado MD Work Phone: [facility] 02-08-2025 19:26-0400 Body temperature 37 Earl Colorado MD Work Phone: [facility] 02-08-2025 19:10-0400 Body temperature 37.0 degrees Celsius EARL COLORADO [facility] Comment on above: Performed By: #### [id number] #### QUIN Simon ([id number]) [facility] [address] [place] [address] 02-08-2025 18:10-0400 Body height 163.8 cm Earl Colorado MD Work Phone: [facility] 01-15-2025 06:35-0400 Body temperature 97.9 [degF] Earl Colorado MD Work Phone: [facility] 01-15-2025 06:35-0400 Diastolic blood pressure 55 mm[Hg] Earl Colorado MD Work Phone: [facility] 01-15-2025 06:35-0400 Heart rate 62 /min Earl Colorado MD Work Phone: [facility] 01-15-2025 06:35-0400 Respiratory rate 16 /min Earl Colorado MD Work Phone: [facility] 01-15-2025 06:35-0400 SaO2% (BldA) [Mass fraction] 99 % Earl Colorado MD Work Phone: [facility] 01-15-2025 06:35-0400 Systolic blood pressure 115 mm[Hg] Earl Colorado MD Work Phone: [facility] 01-15-2025 02:07-0400 Body height 162.6 cm Earl Colorado MD Work Phone: [facility] 01-15-2025 02:07-0400 Body mass index (BMI) [Ratio] 50.71 kg/m2 Earl Colorado MD Work Phone: [facility] 01-15-2025 02:07-0400 Body weight 134 kg Earl Colorado MD Work Phone: [facility] 01-08-2025 19:59-0500 Body temperature 97.9 [degF] Earl Colorado MD Work Phone: [facility] 01-08-2025 19:59-0500 Diastolic blood pressure 81 mm[Hg] Earl Colorado MD Work Phone: [phone] [place] [address] 01-08-2025 19:59-0500 Heart rate 88 /min Earl Colorado MD Work Phone: [facility] 01-08-2025 19:59-0500 Respiratory rate 17 /min Earl Colorado MD Work Phone: [facility] 01-08-2025 19:59-0500 SaO2% (BldA) [Mass fraction] 98 % Earl Colorado MD Work Phone: [facility] 01-08-2025 19:59-0500 Systolic blood pressure 133 mm[Hg] Earl Colorado MD Work Phone: [facility] 01-08-2025 15:49-0500 Body height 162.6 cm Earl Colorado MD Work Phone: [facility] 01-08-2025 15:49-0500 Body mass index (BMI) [Ratio] 50.37 kg/m2 Earl Colorado MD Work Phone: [facility] 01-08-2025 15:49-0500 Body weight 133.1 kg Earl Colorado MD Work Phone: [facility] 12-25-2024 11:19-0500 Body temperature 98.1 [degF] Daisy Crews MD Work Phone: [facility] 12-25-2024 11:19-0500 Diastolic blood pressure 84 mm[Hg] Daisy Crews MD Work Phone: [facility] 12-25-2024 11:19-0500 Heart rate 81 /min Daisy Crews MD Work Phone: [facility] 12-25-2024 11:19-0500 Respiratory rate 19 /min Daisy Crews MD Work Phone: [facility] 12-25-2024 11:19-0500 SaO2% (BldA) [Mass fraction] 100 % Daisy Crews MD Work Phone: [facility] 12-25-2024 11:19-0500 Systolic blood pressure 137 mm[Hg] Daisy Crews MD Work Phone: [facility] 12-23-2024 16:45-0500 Body height 163.8 cm Daisy Crews MD Work Phone: [facility] 12-23-2024 16:45-0500 Body mass index (BMI) [Ratio] 48.32 kg/m2 Daisy Crews MD Work Phone: [facility] 12-23-2024 16:45-0500 Body weight 129.7 kg Daisy Crews MD Work Phone: [facility] 11-25-2024 13:09-0500 Body temperature 97.81 [degF] Sugey Pride MD Work Phone: [facility] 11-25-2024 13:09-0500 Body weight 122.02 kg Sugey Pride MD Work Phone: [facility] 11-25-2024 13:09-0500 Diastolic blood pressure 74 mm[Hg] Sugey Pride MD Work Phone: [facility] 11-25-2024 13:09-0500 Heart rate 90 /min Sugey Pride MD Work Phone: [facility] 11-25-2024 13:09-0500 Systolic blood pressure 116 mm[Hg] Sugey Pride MD Work Phone: [facility] 02-22-2024 17:52-0400 Body temperature 97.3 [degF] [facility] 02-22-2024 17:52-0400 Diastolic blood pressure 96 mm[Hg] [facility] 02-22-2024 17:52-0400 Heart rate 79 /min [facility] 02-22-2024 17:52-0400 Respiratory rate 16 /min [facility] 02-22-2024 17:52-0400 SaO2% (BldA) [Mass fraction] 97 % [facility] 02-22-2024 17:52-0400 Systolic blood pressure 121 mm[Hg] [facility] 02-22-2024 14:10-0400 Body height 163.83 cm [facility] 02-22-2024 14:10-0400 Body mass index (BMI) [Ratio] 42.8 kg/m2 [facility] 02-22-2024 14:10-0400 Body weight 114.94 kg [facility] 12-05-2023 11:46-0500 Diastolic blood pressure 72 mm[Hg] [facility] 12-05-2023 11:46-0500 Heart rate 84 /min [facility] 12-05-2023 11:46-0500 Respiratory rate 16 /min [facility] 12-05-2023 11:46-0500 SaO2% (BldA) [Mass fraction] 98 % [facility] 12-05-2023 11:46-0500 Systolic blood pressure 138 mm[Hg] [facility] 12-05-2023 07:38-0500 Body height 162.99 cm [facility] 12-05-2023 07:38-0500 Body mass index (BMI) [Ratio] 46.8 kg/m2 [facility] 12-05-2023 07:38-0500 Body temperature 97.8 [degF] [facility] 12-05-2023 07:38-0500 Body weight 124.51 kg [facility] 12-04-2023 16:09-0500 Body height 162.56 cm [facility] 12-04-2023 16:09-0500 Body mass index (BMI) [Ratio] 47.1 kg/m2 [facility] 12-04-2023 16:09-0500 Body temperature 98.1 [degF] [facility] 12-04-2023 16:09-0500 Body weight 124.51 kg [facility] 12-04-2023 16:09-0500 Diastolic blood pressure 85 mm[Hg] [facility] 12-04-2023 16:09-0500 Heart rate 68 /min [facility] 12-04-2023 16:09-0500 Respiratory rate 16 /min [facility] 12-04-2023 16:09-0500 SaO2% (BldA) [Mass fraction] 99 % [facility] 12-04-2023 16:09-0500 Systolic blood pressure 143 mm[Hg] [facility] 11-17-2023 04:51-0500 Diastolic blood pressure 78 mm[Hg] [facility] 11-17-2023 04:51-0500 Systolic blood pressure 113 mm[Hg] [facility] 11-17-2023 03:51-0500 SaO2% (BldA) [Mass fraction] 98 % [facility] 11-17-2023 02:59-0500 Body temperature 97.9 [degF] [facility] 11-17-2023 02:59-0500 Heart rate 77 /min [facility] 11-17-2023 02:59-0500 Respiratory rate 16 /min [facility] 11-17-2023 02:54-0500 Body height 162.56 cm [facility] 11-17-2023 02:54-0500 Body mass index (BMI) [Ratio] 50.1 kg/m2 [facility] 11-17-2023 02:54-0500 Body weight 132.5 kg [facility] 10-25-2023 14:57-0500 Body height 162.56 cm [facility] 10-25-2023 14:57-0500 Body mass index (BMI) [Ratio] 50 kg/m2 [facility] 10-25-2023 14:57-0500 Body temperature 97.7 [degF] [facility] 10-25-2023 14:57-0500 Body weight 132.16 kg [facility] 10-25-2023 14:57-0500 Diastolic blood pressure 85 mm[Hg] [facility] 10-25-2023 14:57-0500 Heart rate 81 /min [facility] 10-25-2023 14:57-0500 Respiratory rate 16 /min [facility] 10-25-2023 14:57-0500 SaO2% (BldA) [Mass fraction] 100 % [facility] 10-25-2023 14:57-0500 Systolic blood pressure 147 mm[Hg] [facility] 09-05-2023 07:00-0400 Diastolic blood pressure 88 mm[Hg] [facility] 09-05-2023 07:00-0400 Systolic blood pressure 145 mm[Hg] [facility] 09-05-2023 05:50-0400 Respiratory rate 18 /min [facility] 09-05-2023 05:50-0400 SaO2% (BldA) [Mass fraction] 98 % [facility] 09-05-2023 03:56-0400 Body mass index (BMI) [Ratio] 49.7 kg/m2 [facility] 09-05-2023 03:56-0400 Body temperature 98.1 [degF] [facility] 09-05-2023 03:56-0400 Body weight 131.4 kg [facility] 09-05-2023 03:56-0400 Heart rate 80 /min [facility] 06-05-2023 07:10-0400 Diastolic blood pressure 90 mm[Hg] [facility] 06-05-2023 07:10-0400 Heart rate 50 /min [facility] 06-05-2023 07:10-0400 Respiratory rate 16 /min [facility] 06-05-2023 07:10-0400 SaO2% (BldA) [Mass fraction] 100 % [facility] 06-05-2023 07:10-0400 Systolic blood pressure 150 mm[Hg] [facility] 06-05-2023 04:33-0400 Body height 162.56 cm [facility] 06-05-2023 04:33-0400 Body mass index (BMI) [Ratio] 46.3 kg/m2 [facility] 06-05-2023 04:33-0400 Body temperature 98.9 [degF] [facility] 06-05-2023 04:33-0400 Body weight 122.46 kg [facility] 05-17-2023 16:27-0400 Respiratory rate 18 /min [facility] 05-17-2023 15:25-0400 Body mass index (BMI) [Ratio] 45.8 kg/m2 [facility] 05-17-2023 15:25-0400 Body temperature 98.4 [degF] [facility] 05-17-2023 15:25-0400 Body weight 120.97 kg [facility] 05-17-2023 15:25-0400 Diastolic blood pressure 96 mm[Hg] [facility] 05-17-2023 15:25-0400 Heart rate 83 /min [facility] 05-17-2023 15:25-0400 SaO2% (BldA) [Mass fraction] 100 % [facility] 05-17-2023 15:25-0400 Systolic blood pressure 134 mm[Hg] [facility] 01-21-2023 17:09-0400 Respiratory rate 18 /min No Primary Care Physician [facility] 01-21-2023 15:10-0400 Body height 162.56 cm No Primary Care Physician [facility] 01-21-2023 15:10-0400 Body mass index (BMI) [Ratio] 46.7 kg/m2 No Primary Care Physician [facility] 01-21-2023 15:10-0400 Body temperature 96.3 [degF] No Primary Care Physician [facility] 01-21-2023 15:10-0400 Body weight 123.61 kg No Primary Care Physician [facility] 01-21-2023 15:10-0400 Diastolic blood pressure 78 mm[Hg] No Primary Care Physician [facility] 01-21-2023 15:10-0400 Heart rate 77 /min No Primary Care Physician [facility] 01-21-2023 15:10-0400 SaO2% (BldA) [Mass fraction] 100 % No Primary Care Physician [facility] 01-21-2023 15:10-0400 Systolic blood pressure 136 mm[Hg] No Primary Care Physician [facility] 12-14-2022 23:31-0500 Diastolic blood pressure 72 mm[Hg] No Primary Care Physician [facility] 12-14-2022 23:31-0500 Heart rate 68 /min No Primary Care Physician [facility] 12-14-2022 23:31-0500 Respiratory rate 18 /min No Primary Care Physician [facility] 12-14-2022 23:31-0500 SaO2% (BldA) [Mass fraction] 100 % No Primary Care Physician [facility] 12-14-2022 23:31-0500 Systolic blood pressure 137 mm[Hg] No Primary Care Physician [facility] 12-14-2022 19:15-0500 Body height 162.56 cm No Primary Care Physician [facility] 12-14-2022 19:15-0500 Body mass index (BMI) [Ratio] 48 kg/m2 No Primary Care Physician [facility] 12-14-2022 19:15-0500 Body temperature 96.9 [degF] No Primary Care Physician [facility] 12-14-2022 19:15-0500 Body weight 127 kg No Primary Care Physician [facility] 10-26-2022 14:01-0500 Heart rate 65 /min No Primary Care Physician [facility] 10-26-2022 14:01-0500 Respiratory rate 18 /min No Primary Care Physician [facility] 10-26-2022 14:01-0500 SaO2% (BldA) [Mass fraction] 100 % No Primary Care Physician [facility] 10-26-2022 12:33-0500 Diastolic blood pressure 85 mm[Hg] No Primary Care Physician [facility] 10-26-2022 12:33-0500 Systolic blood pressure 114 mm[Hg] No Primary Care Physician [facility] 10-26-2022 10:01-0500 Body height 162.56 cm No Primary Care Physician [facility] Work Phone: 10-26-2022 10:01-0500 Body mass index (BMI) [Ratio] 48 kg/m2 No Primary Care Physician [facility] 10-26-2022 10:01-0500 Body temperature 96.8 [degF] No Primary Care Physician [facility] 10-26-2022 10:01-0500 Body weight 127 kg No Primary Care Physician [facility] 09-06-2022 18:51-0400 Diastolic blood pressure 88 mm[Hg] DR SALIMA CONSTANTINO MD [facility] 09-06-2022 18:51-0400 Heart rate 90 /min DR SALIMA CONSTANTINO MD [facility] 09-06-2022 18:51-0400 Respiratory rate 18 /min DR SALIMA CONSTANTINO MD [facility] 09-06-2022 18:51-0400 Systolic blood pressure 140 mm[Hg] DR SALIMA CONSTANTINO MD [facility] 09-06-2022 17:04-0400 Body temperature 98.96 [degF] DR SALIMA CONSTANTINO MD [facility] 09-06-2022 17:04-0400 Diastolic blood pressure 90 mm[Hg] DR SALIMA CONSTANTINO MD [facility] 09-06-2022 17:04-0400 Heart rate 93 /min DR SALIMA CONSTANTINO MD [facility] 09-06-2022 17:04-0400 Respiratory rate 18 /min DR SALIMA CONSTANTINO MD [facility] 09-06-2022 17:04-0400 Systolic blood pressure 151 mm[Hg] DR SALIMA CONSTANTINO MD [facility] 08-18-2022 21:28-0400 Body temperature 101 [degF] No Primary Care Physician [facility] 08-18-2022 21:03-0400 Diastolic blood pressure 76 mm[Hg] [facility] 08-18-2022 21:03-0400 Heart rate 78 /min [facility] 08-18-2022 21:03-0400 Respiratory rate 16 /min [facility] 08-18-2022 21:03-0400 SaO2% (BldA) [Mass fraction] 99 % [facility] 08-18-2022 21:03-0400 Systolic blood pressure 128 mm[Hg] [facility] 08-18-2022 16:21-0400 Body temperature 98.7 [degF] [facility] Work Phone: 08-18-2022 16:20-0400 Body height 162.56 cm [facility] Work Phone: 08-18-2022 16:20-0400 Body mass index (BMI) [Ratio] 46.3 kg/m2 [facility] 08-18-2022 16:20-0400 Body weight 122.4 kg [facility] 10-07-2018 12:45-0500 BMI (Body Mass Index) 46.59 kg/m2 [facility] Work Phone: 10-07-2018 12:45-0500 Body Temperature 97.59 [degF] [facility] Work Phone: 10-07-2018 12:45-0500 BP Diastolic 101 mm[Hg] [facility] Work Phone: 10-07-2018 12:45-0500 BP Systolic 141 mm[Hg] [facility] Work Phone: 10-07-2018 12:45-0500 Height 161.3 cm [facility] Work Phone: 10-07-2018 12:45-0500 Pulse (Heart Rate) 98 /min Josephnaa Renteria [facility] Work Phone: 10-07-2018 12:45-0500 Respiratory Rate 18 /min Josephnaa Renteria [facility] Work Phone: 10-07-2018 12:45-0500 Weight 121.2 kg [facility] Work Phone: 09-08-2018 15:52-0500 Respiratory Rate 16 /min Juan [facility] 09-08-2018 11:00-0500 Body Temperature 99.19 [degF] Juan [facility] 09-08-2018 11:00-0500 BP Diastolic 72 mm[Hg] Juan [facility] 09-08-2018 11:00-0500 BP Systolic 109 mm[Hg] Juan [facility] 09-08-2018 11:00-0500 Pulse (Heart Rate) 122 /min Juan [facility] 09-08-2018 11:00-0500 Pulse Oximetry 94 % Juan [facility] Encounters Encounter Date Encounter Type Care Provider Facility Start: 06-23-2025 ambulatory No Primary Car e Physician Facility:[facility] Start: 06-17-2025 End: 06-17-2025 ambulatory [facility] Start: 06-09-2025 End: 06-09-2025 [facility]ulatory [facility] Start: 06-04-2025 ambulatory No Primary Car e Physician Facility:[facility] Start: 06-04-2025 End: 06-04-2025 Emergency department patient visit [facility] Facility:[facility] Start: 06-02-2025 End: 06-02-2025 ambulatory [facility] Start: 05-20-2025 End: 05-20-2025 Emergency department patient visit Zoë Santana Facility:[facility] Start: 05-13-2025 End: 05-13-2025 Office outpatient visit 25 minutes Zoë Santana MD Work Phone: [facility] Comment on above: Type 2 diabetes alix itus without complication, with long-term current use of insulin (Primary Dx); Benign essential HTN; Other insomnia; Healthcare maintenance; Hypomagnesemia Start: 05-13-2025 End: 05-13-2025 Patient encounter status Zoë Santana MD Work Phone: [facility] Work Phone: Start: 05-13-2025 End: 05-13-2025 ambulatory [facility] Start: 05-13-2025 End: 05-13-2025 Encounter for general adult medical examination without abnormal findings [facility] Start: 04-30-2025 End: 04-30-2025 ambulatory No Primary Care Physician [facility] Start: 04-23-2025 End: 04-23-2025 ambulatory No Primary Care Physician Facility:[facility] Start: 04-14-2025 End: 04-14-2025 ambulatory No Primary Care Physician Facility:[facility] Start: 04-07-2025 End: 04-07-2025 ambulatory No Primary Care Physician Facility:[facility] Start: 04-02-2025 End: 04-02-2025 ambulatory No Primary Care Physician [facility] Start: 03-24-2025 End: 03-24-2025 ambulatory No Primary Care Physician [facility] Start: 03-18-2025 End: 03-18-2025 ambulatory [facility] Start: 03-18-2025 End: 03-18-2025 ambulatory No Primary Care Physician [facility] Start: 03-10-2025 End: 03-10-2025 Office outpatient visit 25 minutes Carline Pollack MD Work Phone: [facility] Comment on above: Encounter for postpa rtum visit (Primary Dx); History of gestational diabetes; Counseling for initiation of control method; History of pre-eclampsia; Bilateral lower extremity edema Start: 03-10-2025 End: 03-10-2025 ambulatory CARLINE POLLACK [facility] Start: 03-05-2025 End: 03-05-2025 ambulatory No Primary Care Physician Facility:[facility] Start: 03-03-2025 End: 03-03-2025 Office outpatient new 45 minutes Zoë Santana MD Work Phone: [facility] Comment on above: Benign essential HTN (Primary Dx); Fatigue, unspecified type; Weight gain; History of gestational diabetes; Anemia, unspecified type; Screening for hyperlipidemia; Attention or concentration deficit; Leg edema; Gastroesophageal reflux disease without esophagitis; psychosis (Multi); Moderate depressive disorder; Anxiety Start: 03-03-2025 End: 03-03-20[facility] Start: 03-01-2025 End: 03-01-2025 ambulatory JOSE GUADALUPE MILLS [facility] Start: 03-01-2025 End: 03-01-2025 Subsequent hospital visit by physician Jose Guadalupe Mills MD Work Phone: [facility] 2 Obstetrics and Gynecology Comment on above: Severe preeclampsia, third trimester (HHS-HCC) (Primary Dx); Insulin controlled gestational diabetes mellitus (GDM) in second trimester (HHS-HCC) Start: 02-24-2025 End: 02-24-2025 ambulatory No Primary Care Physician Facility:[facility] Start: 02-19-2025 End: 02-19-2025 ambulatory No Primary Care Physician Facility:[facility] Start: 02-16-2025 End: 02-16-2025 ambulatory KELLI MATTHEWS [facility] Start: 02-16-2025 End: 02-16-2025 Subsequent hospital visit by physician Kelli Matthews MD Work Phone: [facility] 2 Obstetrics and Gynecology Start: 02-10-2025 ambulatory No Primary Car e Physician Facility:[facility] Start: 02-08-2025 End: 02-15-2025 Evaluation and management of inpatient Earl Colorado MD Work Phone: [place] [phone] Comment on above: Severe preeclampsia, third trimester (HHS-HCC) (Primary Dx); care following vaginal delivery (HHS-HCC); Depression affecting in third trimester, antepartum ([facility]-HCC); Gastroesophageal reflux disease, unspecified whether esophagitis present Start: 02-05-2025 End: 02-05-2025 Subsequent hospital visit by physician Bridger Ovallet[address] [facility] [address] [facility] Comment on above: Gestational hyperten sal, second trimester (HHS-HCC); Insulin controlled gestational diabetes mellitus (GDM) in third trimester (HHS-HCC); Gestational hypertension w/o significant proteinuria in 3rd trimester (HHS-HCC) Start: 02-05-2025 End: 02-05-2025 ambulatory [facility] Start: 02-03-2025 ambulatory No Primary Car e Physician Facility:[facility] Start: 01-29-2025 End: 01-29-2025 Subsequent hospital visit by physician Bridger Ovallet[address] [facility] Comment on above: Gestational hyperten sal, second trimester ([facility]-HCC); Insulin controlled gestational diabetes mellitus (GDM) in third trimester ([facility]-HCC) Start: 01-29-2025 End: 01-29-2025 ambulatory [facility] Start: 01-29-2025 End: 01-29-2025 ambulatory No Primary Care Physician [facility] Start: 01-27-2025 End: 01-27-2025 ambulatory No Primary Care Physician Facility:[facility] Start: 01-22-2025 End: 01-22-2025 Subsequent hospital visit by physician Bridger Ovallet[address] [address] [facility] Comment on above: Gestational hyperten sal, second trimester ([facility]-HCC); Insulin controlled gestational diabetes mellitus (GDM) in third trimester ([facility]); Gestational hypertension w/o significant proteinuria in 3rd trimester ([facility]-HCC) Start: 01-22-2025 End: 01-22-2025 ambulatory [facility] Start: 01-20-2025 End: 01-20-2025 ambulatory [facility] Start: 01-15-2025 End: 01-15-2025 Subsequent hospital visit by physician Bridger Lemons [facility] Comment on above: Screening, , for anatomic survey (HHS-HCC); Obesity affecting in third trimester (HHS-HCC); Gestational diabetes mellitus (GDM) requiring insulin (HHS-HCC); Gestational hypertension w/o significant proteinuria in 3rd trimester (HHS-HCC) Start: 01-15-2025 End: 01-15-2025 ambulatory EARL Amos [facility] Start: 01-15-2025 End: 01-15-2025 ambulatory EARL Amos [facility] [facility] Start: 01-15-2025 End: 01-15-2025 Evaluation and management of inpatient Earl Colorado MD Work Phone: [place] [phone] Obstetrics and Gynecology Start: 01-13-2025 End: 01-13-2025 ambulatory No Primary Care Physician Facility:[facility] Start: 01-08-2025 End: 01-08-2025 ambulatory EARL NIELSENCKNEY [facility] Start: 01-08-2025 End: 01-08-2025 Evaluation and management of inpatient Earl Colorado MD Work Phone: [place] [phone] Obstetrics and Gynecology Comment on above: Gestational hyperten sal, second trimester ([facility]) (Primary Dx) Start: 01-08-2025 End: 01-08-2025 Subsequent hospital visit by physician Bridger Lemons Obgynimg Ultrasound 4 [facility] Comment on above: Screening, , for anatomic survey ([facility]HS-HCC); Gestational hypertension (HHS-HCC); Obesity affecting (HHS-HCC); Gestational diabetes mellitus (GDM); AMA (advanced maternal age) multigravida 35+ (HHS-HCC) Start: 01-08-2025 End: 01-08-2025 ambulatory JOSE GUADALUPE GUPTA [facility] Start: 01-06-2025 End: 01-06-2025 ambulatory No Primary Care Physician Facility:[facility] Start: 01-02-2025 End: 01-02-2025 ambulatory No Primary Care Physician Facility:[facility] Start: 01-01-2025 End: 01-01-2025 Subsequent hospital visit by physician Bridger Lemons Obgynimg Ultrasound 3 [facility] Comment on above: Screening, , for anatomic survey ([facility]); Encounter for follow-up ultrasound of anatomy; Gestational diabetes requiring insulin ([facility]); AMA (advanced maternal age) multigravida 35+ (HHS-HCC); Obesity affecting (HHS-HCC) Start: 01-01-2025 End: 01-01-2025 ambulatory [facility] Start: 12-23-2024 End: 12-25-2024 Evaluation and management of inpatient Daisy Crews MD Work Phone: [place] [phone] Comment on above: Insulin controlled g estational diabetes mellitus (GDM) in second trimester ([facility]) (Primary Dx); Hyperglycemia in ([facility]); Gestational hypertension, second trimester ([facility]) Start: 12-17-2024 End: 12-17-2024 ambulatory [facility] Facility:[facility] Start: 12-17-2024 End: 12-17-2024 ambulatory No Primary Care Physician Facility:[facility] Start: 12-03-2024 End: 12-03-2024 ambulatory No Primary Care Physician Facility:[facility] Start: 12-01-2024 End: 12-01-2024 ambulatory No Primary Care Physician Facility:[facility] Start: 11-25-2024 End: 11-25-2024 Initial care visit Sugey Pride MD Work Phone: [facility] Comment on above: History of d elivery (Primary Dx) Start: 11-25-2024 End: 11-25-2024 ambulatory SUGEY PRIDE [facility] Start: 11-21-2024 End: 11-21-2024 ambulatory No Primary Care Physician Facility:[facility] Start: 11-18-2024 End: 11-18-2024 ambulatory No Primary Care Physician Facility:[facility] Start: 11-14-2024 End: 11-14-2024 ambulatory MAJOR HERNANDEZ [facility] Start: 11-13-2024 End: 11-13-2024 Emergency department patient visit No Primary Care Physician Facility:[facility] Start: 10-27-2024 End: 10-27-2024 ambulatory MARAYNA WILLIS [facility] Start: 10-24-2024 End: 10-24-2024 ambulatory No Primary Care Physician Facility:[facility] Start: 10-24-2024 End: 10-24-2024 ambulatory No Primary Care Physician Facility:[facility] Start: 10-15-2024 End: 10-15-2024 ambulatory No Primary Care Physician Facility:[facility] Start: 10-13-2024 End: 10-14-2024 ambulatory No Primary Care Physician Facility:[facility] Start: 10-10-2024 End: 10-10-2024 ambulatory No Primary Care Physician Facility:[facility] Start: 10-09-2024 End: 10-10-2024 ambulatory No Primary Care Physician Facility:[facility] Start: 10-09-2024 End: 10-09-2024 Emergency department patient visit No Primary Care Physician Facility:[facility] Start: 10-01-2024 ambulatory Amberly Jessica linderty:[facility] Start: 09-30-2024 End: 09-30-2024 [facility] Start: 09-25-2024 End: 09-25-2024 ambulatory Marisol Elliott Facility:[facility] Start: 09-25-2024 End: 09-25-2024 ambulatory Marisol Elliott Facility:[facility] Start: 09-02-2024 End: 09-02-2024 ambulatory Leticia Bergman Facility:[facility] Start: 09-02-2024 End: 09-02-2024 ambulatory Leticia Bergman Facility:[facility] Start: 08-06-2024 End: 08-06-2024 Emergency department patient visit Leticia Bergman Facility:[facility] Start: 07-14-2024 End: 07-14-2024 ambulatory Leticia Bergman Facility:[facility] Start: 07-09-2024 End: 07-09-2024 ambulatory Leticia Bergman Facility:[facility] Start: 06-30-2024 End: 06-30-2024 Emergency department patient visit Leticia Bergman Facility:[facility] Start: 03-03-2024 End: 03-03-2024 ambulatory [facility] Work Phone: Start: 03-03-2024 End: 03-03-2024 Patient encounter procedure [facility] Work Phone: Start: 02-22-2024 End: 02-22-2024 Emergency department patient visit [facility] Work Phone: Start: 12-05-2023 End: 12-05-2023 Emergency department patient visit [facility] Work Phone: Start: 12-04-2023 End: 12-04-2023 Emergency department patient visit [facility] Work Phone: Start: 11-17-2023 End: 11-17-2023 Emergency department patient visit [facility] Work Phone: Start: 10-25-2023 End: 10-25-2023 Emergency department patient visit [facility] Work Phone: Start: 09-05-2023 End: 09-05-2023 Emergency department patient visit [facility] Work Phone: Start: 06-06-2023 Emergency department patient visit STU JOHNSON Facility:[facility] Start: 06-05-2023 End: 06-05-2023 Emergency department patient visit [facility] Work Phone: Start: 05-17-2023 End: 05-17-2023 Emergency department patient visit [facility] Work Phone: Start: 03-14-2023 ambulatory NAYA GODFREY CNP Facility:B Start: 01-21-2023 End: 01-21-2023 Emergency department patient visit No Primary Care Physician [facility] Start: 12-14-2022 End: 12-14-2022 Emergency department patient visit No Primary Care Physician [facility] Start: 12-03-2022 End: 12-03-2022 Emergency department patient visit STU JOHNSON Facility:[facility] Start: 10-26-2022 End: 10-26-2022 Emergency department patient visit No Primary Care Physician [facility] Start: 10-23-2022 End: 10-23-2022 Patient encounter procedure No Primary Care Physician [facility] Start: 10-07-2022 End: 10-11-2022 Emergency department patient visit PHYSICIAN ARELY [facility] Start: 09-06-2022 End: 09-06-2022 Emergency department patient visit DR SALIMA CONSTANTINO MD Facility: Start: 09-06-2022 End: 09-06-2022 Emergency department patient visit DR SALIMA CONSTANTINO MD [facility] Start: 08-18-2022 End: 08-18-2022 Emergency department patient visit [facility] Start: 03-30-2019 End: 03-30-2019 Emergency department patient visit [facility] Start: 03-26-2019 End: 03-26-2019 Emergency department patient visit [facility] Start: 02-08-2019 End: 02-08-2019 Emergency [facility] Start: 02-04-2019 End: 02-05-2019 Emergency department patient visit [facility] Start: 02-02-2019 End: 02-02-2019 Emergency department patient visit GLEN HAMILTON [facility] Start: 12-22-2018 End: 12-22-2018 Emergency department patient visit MAYCOL CASAS [facility] Start: 10-07-2018 Patient encounter procedure JOSEPH RENTERIA [facility] Start: 10-07-2018 End: 10-07-2018 Office outpatient visit 15 minutes Joseph Renteria Work Phone: [facility] [employer] Comment on above: Pelvic pain (Primary Dx); PCOS (polycystic ovarian syndrome); Amenorrhea Start: 09-14-2018 End: 09-14-2018 Emergency department patient visit EHSAN Ortiz LEONID [facility] Start: 09-13-2018 Patient encounter procedure JOSEPH RENTERIA [facility] Start: 09-03-2018 End: 09-03-2018 Patient encounter procedure Freddie Tinoco [facility] Start: 09-03-2018 End: 09-08-2018 Evaluation and management of inpatient FREDDIE TINOCO [facility] Start: 09-03-2018 End: 09-03-2018 Emergency department patient visit AMBERLY MORGAN [facility] Start: 09-03-2018 End: 09-08-2018 Evaluation and management of inpatient Juan Pastor Work Phone: [facility] Oncology/Surgery Comment on above: Acute pyelonephritis (Primary Dx); Nausea and vomiting, intractability of vomiting not specified, unspecified vomiting type; Crohn's disease of small and large intestines with complication (HCC) Start: 08-31-2018 End: 08-31-2018 Emergency department patient visit ARAGON [facility] Start: 08-12-2018 End: 08-12-2018 Emergency department patient visit Jade Oquendo Facility:[facility] Start: 07-31-2018 End: 07-31-2018 Emergency department patient visit BRITTANY BURCH [facility] Start: 07-26-2018 End: 07-26-2018 Emergency department patient visit [facility] Start: 07-23-2018 End: 07-23-2018 Emergency department patient visit [facility] Start: 07-09-2018 End: 07-09-2018 Emergency department patient visit JAGJIT SALAZAR [facility] Start: 06-05-2018 End: 06-05-2018 ambulatory UNKNOWN PROVIDER Facility:[facility] Start: 04-27-2018 End: 04-27-2018 Emergency department patient visit [facility] Start: 03-03-2018 End: 03-03-2018 Patient encounter procedure [facility] Start: 02-27-2018 End: 02-27-2018 Patient encounter Swapna Timbo Facility[facility] Start: 02-19-2018 Patient encounter procedure [facility] Start: 02-16-2018 End: 02-16-2018 Emergency department patient visit [facility] Start: 02-15-2018 Patient encounter procedure [facility] Start: 02-12-2018 Patient encounter procedure [facility] Start: 01-27-2018 End: 01-27-2018 Patient encounter procedure LONA CONSTANTINO [facility] Start: 12-18-2017 End: 12-18-2017 Emergency department patient visit Nirmal Maddox Facility:[facility] Start: 11-15-2017 Patient encounter procedure JOSEPHNAA RENTERIA [facility] Start: 11-15-2017 Patient encounter procedure JOSEPH RENTERIA [facility] Start: 10-25-2017 End: 10-27-2017 Patient encounter procedure ASCENCION DUBON [facility] Start: 10-15-2017 End: 10-15-2017 Emergency department patient visit [facility] Start: 09-03-2017 End: 09-03-2017 Emergency department patient visit [facility] Start: 08-28-2017 Ambulatory JAYDEN Meli PÉREZ [facility] Start: 05-11-2017 End: 05-11-2017 Emergency department patient visit MAYELA Nain ELLIOTT [facility] Procedures Date Procedure Procedure Detail Performing [...] Blood count complete auto&auto difrntl wbc Dhara Aurora Bautista [employer]BRANDER-[employer]PERATIONS MANAGER Work Phone: Start: 02-16-2025 US Abdomen [...] Start: 02-10-2025 Mra head w/o contrst material Jess Deleon MD Work Phone: Start: 02-09-2025 End: 02-09-2025 Comprehensive metabolic panel Elyssa He MD Work Phone: Start: 02-09-2025 Iaad ia hiv-1 ag w/hiv-1 & hiv-2 antbdy single Elva He MD MPH Work Phone: Start: 02-09-2025 Antibody rubella Elva He MD MPH Work Phone: Start: 02-09-2025 Comprehensive metabolic panel Dhara Bautista [employer]BRANDER-[employer] OPERATIONS MANAGER Work Phone: Start: 02-08-2025 Cul prsmptv pthgnc organism scrn w/colony estimj Jess Deleon MD Work Phone: Start: 02-08-2025 Glucose quantitative blood xcpt reagent strip Clair Castro MD Work Phone: Start: 02-08-2025 Influenza virus A and B and SARS-CoV-2 (COVID-19) identified in Respiratory specimen by JYOTI with probe detection Jess Deleon MD Work Phone: Start: 02-08-2025 Creatinine other source Dhara Bautista APR N-FIELD OPERATIONS MANAGER Work Phone: Start: 02-08-2025 Blood typing serologic rh (d) Dhara Bautista DEBRANDER-[employer] OPERATIONS MANAGER Work Phone: Start: End: 02-08-2025 Chloride bld Dhara Bautista DEBRANDER-CN P Work Phone: Start: 02-08-2025 Iaad ia [...] 01-08-2025 End: 01-08-2025 Comprehensive metabolic panel Vanesa Simon [facility] DEBRANDER-[employer] OPERATIONS MANAGER Work Phone: Start: 01-08-2025 Urnls dip stick/tablet rgnt non-auto w/o micrscp [facility]ANDER-FIELD OPERATIONS MANAGER Work Phone: Start: 01-01-2025 Us preg [...] Glucose quantitative blood xcpt reagent strip Earl oClorado MD Work Phone: Start: 12-24-2024 Glucose quantitative blood xcpt reagent strip Earl Colorado MD Work Phone: Start: 12-24-2024 Glucose quantitative blood xcpt reagent strip Earl Colorado MD Work Phone: Start: 12-24-2024 biophysical profile w/o non-stress testing Celena Solis DEBRANDER-[employer] OPERATIONS MANAGER Work Phone: Start: 12-24-2024 Glucose quantitative blood xcpt reagent strip Earl Colorado MD Work Phone: Start: 12-23-2024 Glucose quantitative blood xcpt reagent strip Earl Colorado MD Work Phone: Start: 12-23-2024 Urnls dip stick/tablet rgnt non-auto w/o micrscp Celena Solis DEBRANDER-[employer] OPERATIONS MANAGER Work Phone: Start: 12-23-2024 Glucose quantitative blood xcpt reagent strip Earl Colorado MD Work Phone: Start: 12-23-2024 Blood typing serologic rh (d) Celena Solis DEBRANDER-FIELD OPERATIONS MANAGER Work Phone: Start: 12-23-2024 End: 12-23-2024 Comprehensive metabolic panel Celena Solis DEBRANDER-FIELD OPERATIONS MANAGER Work Phone: Start: 12-23-2024 Urnls dip stick/tablet rgnt non-auto w/o micrscp Laney Patricio DEBRANDER-FIELD OPERATIONS MANAGER Work Phone: Start: 12-23-2024 Glucose quantitative [...] Urnls dip stick/tablet reagent auto microscopy EHSAN JAQUZE Start: 03-26-2019 Assay of lactate EHSAN JAQUEZ [...] 09-03-2018 URINE CLEMENT CONTAINER Triage Protocol Renuka rgceasar Start: 09-03-2018 End: 09-03-2018 Basic metabolic 2000 [...] [Enzymatic activity/volume] in Serum or Plasma Joy Argentina Timi Work Phone: Start: 09-03-2018 End: 09-03-2018 PINK [...] for Adults (1 - 1-dose 75+ series) [facility] Start: 2039 Zoster Vaccines (1 of 2) Zoster Vaccines (1 of 2) [facility] Start: 2038 Zoster Vaccines (1 of 2) Zoster Vaccines (1 of 2) [facility] Start: 03-05-2030 Lipid panel Lipid Panel [facility] Start: 03-10-2028 Diabetes mellitus screening Diabetes Screening [facility] Start: 03-01-2028 Diabetes mellitus screening Diabetes Screening [facility] Start: 02-13-2028 Diabetes mellitus screening Diabetes Screening [facility] Start: 03-05-2026 Lipid panel Lipid Panel [facility] Start: 07-06-2025 Influenza vaccination [facility] Start: 06-24-2025 End: 06-24-2025 Patient encounter procedure 06/24/2025 1:45 PM EDT Office Visit [facility] Internal Medicine [address] [place] [address] Zoë Santana MD [address] [place] [address] [facility] Internal [facility] Start: 06-05-2025 Hemoglobin A1c measurement Diabetes: Hemoglobin A1C [facility] Start: 05-27-2025 End: 05-27-2025 Patient encounter procedure 05/27/2025 8:00 AM EDT Office Visit [facility] [address] [place] [address] Maycol Dykes MD [address] [facility] [place] [address] [facility] Start: 05-26-2025 End: 05-26-2025 Clinical Support 05/26/2025 3:00 PM EDT Clinical Support [facility] [address] [facility] [address] [place] [address] [facility] Start: 05-13-2025 End: 05-13-2026 Comprehensive metabolic 2000 panel - Serum or Plasma Comprehensive Metabolic Panel Lab Routine Type 2 diabetes mellitus without complication, with long-term current use of insulin Expected: 05/13/2025 (Approximate), Expires: 05/13/[address] [facility] Service Area Work Phone: Comment on above: Expected: 05/13/2025 (Approximate), Expi res: 05/13/2026 Start: 05-13-2025 End: 05-13-2026 Hemoglobin A1c/Hemoglobin.total in Blood Hemoglobin A1C Lab Routine Type 2 diabetes mellitus without complication, with long-term current use of insulin Expected: 05/13/2025 (Approximate), Expires: 05/13/2026 [facility] Work Phone: Comment on above: Expected: 05/13/2025 (Approximate), Expi res: 05/13/2026 Start: 05-13-2025 End: 05-13-2026 Magnesium [Mass/volume] in Serum or Plasma Magnesium Lab Routine Hypomagnesemia Expected: 05/13/2025 (Approximate), Expires: 05/13/2026 [facility] Work Phone: Comment on above: Expected: 05/13/2025 (Approximate), Expi res: 05/13/2026 Start: 05-13-2025 End: 05-13-2026 Microalbumin/Creatinin e [Mass Ratio] in Urine Albumin-Creatinine Ratio, Urine Random Lab Routine Type 2 diabetes mellitus without complication, with long-term current use of insulin Expected: 05/13/2025 (Approximate), Expires: 05/13/2026 [facility] Work Phone: Comment on above: Expected: 05/13/2025 (Approximate), Expi res: 05/13/2026 Start: 03-17-2025 End: 03-17-2025 Patient encounter procedure 03/17/2025 11:15 AM EDT Office Visit [facility] Internal Medicine [address] [place] [phone] Zoë Santana MD [address] [place] [address] [facility] Start: 03-12-2025 End: 03-12-2025 Patient encounter procedure 03/12/2025 1:00 PM EDT Office Visit [facility] [place] [address] [address] [address] [place] [address] [place] [address] [facility] Start: 03-03-2025 End: 03-03-2026 CBC W Auto Differential panel - Blood CBC and Auto Differential Lab Routine Fatigue, unspecified type Anemia, unspecified type Expected: 03/03/2025 (Approximate), Expires: 03/03/2026 [facility] Work Phone: Comment on above: Expected: 03/03/2025 (Approximate), Expi res: 03/03/2026 Start: 03-03-2025 End: 03-03-2026 Comprehensive metabolic 2000 panel - Serum or Plasma Comprehensive Metabolic Panel Lab Routine Fatigue, unspecified type Benign essential HTN Weight gain History of gestational diabetes Expected: 03/03/2025 (Approximate), Expires: 03/03/[address] [facility] Service Area Work Phone: Comment on above: Expected: 03/03/2025 (Approximate), Expi res: 03/03/2026 Start: 03-03-2025 End: 03-03-2026 Hemoglobin A1c/Hemoglobin.total in Blood Hemoglobin A1C Lab Routine History of gestational diabetes Expected: 03/03/2025 (Approximate), Expires: 03/03/2026 [facility] Work Phone: Comment on above: Expected: 03/03/2025 (Approximate), Expi res: 03/03/2026 Start: 03-03-2025 End: 03-03-2026 Lipid 1996 panel - Serum or Plasma Lipid Panel Lab Routine Screening for hyperlipidemia Expected: 03/03/2025 (Approximate), Expires: 03/03/2026 [facility] Work Phone: Comment on above: Expected: 03/03/2025 (Approximate), Expi res: 03/03/2026 Start: 03-03-2025 End: 03-03-2026 Magnesium [Mass/volume] in Serum or Plasma Magnesium Lab Routine Fatigue, unspecified type Expected: 03/03/2025 (Approximate), Expires: 03/03/2026 [facility] Work Phone: Comment on above: Expected: 03/03/2025 (Approximate), Expi res: 03/03/2026 Start: 03-03-2025 End: 03-03-2026 TSH with reflex to Free T4 if abnormal TSH with reflex to Free T4 if abnormal Lab Routine Fatigue, unspecified type Weight gain Expected: 03/03/2025 (Approximate), Expires: 03/03/2026 [facility] Work Phone: Comment on above: Expected: 03/03/2025 (Approximate), Expi res: 03/03/2026 Start: 03-03-2025 End: 03-03-2026 Zinc [Mass/volume] in Serum or Plasma Zinc Lab Routine Fatigue, unspecified type Expected: 03/03/2025 (Approximate), Expires: 03/03/2026 [facility] Work Phone: Comment on above: Expected: 03/03/2025 (Approximate), Expi res: 03/03/2026 Start: 03-03-2025 End: 03-03-2025 Patient encounter procedure 03/03/2025 11:30 AM EDT Office Visit [facility] Internal Medicine [address] [place] [address] Zoë Santana MD [address] [place] [address] [facility] Start: 03-02-2025 End: 03-02-2025 Clinical Support [facility] Start: 02-26-2025 End: 02-26-2025 Patient encounter procedure [facility] Start: 02-23-2025 End: 02-23-2025 Clinical Support [facility] Start: 02-20-2025 End: 02-20-2025 Clinical Support 02/20/2025 10:00 AM EDT Clinical Support [facility] [address] [place] [address] [facility] Start: 02-19-2025 End: 02-19-2025 Patient encounter procedure [facility] Start: 02-16-2025 End: 02-16-2025 Clinical Support [facility] Start: 02-12-2025 End: 02-12-2025 Patient encounter procedure [facility] Start: 02-09-2025 End: 02-09-2025 Clinical Support [facility] Start: 02-05-2025 End: 02-05-2025 Patient encounter procedure [facility] Start: 02-02-2025 End: 02-02-2025 Clinical Support [facility] Start: 01-29-2025 End: 01-29-2025 Patient encounter procedure [facility] Start: 01-26-2025 End: 01-26-2025 Clinical Support [facility] Start: 01-22-2025 End: 01-22-2025 Patient encounter procedure [facility] Start: 01-20-2025 End: 01-20-2025 Clinical Support [facility] Start: 01-16-2025 Orders Only 01/16/2025 Orders Only [place] [address] [address] [place] [address] [place] [address] [place] [address] Gestational hypertension, second trimester ([facility]) [facility] 4 Comment on above: Gestational hypertension, second trimest er ([facility]) Start: 01-15-2025 End: 01-15-2025 Patient encounter procedure [facility] Start: 01-09-2025 Orders Only 01/09/2025 Orders Only [facility] [address] [place] [address] [place] [address] [place] [address] Gestational hypertension, second trimester ([facility]) [facility] 4 Comment on above: Gestational hypertension, second trimest er ([facility]) Start: 01-08-2025 End: 01-08-2026 Creatinine [Mass/volume] in 24 hour Urine Creatinine, 24 Hour Urine Lab Routine Gestational hypertension, second trimester ([facility]) Expected: 01/08/2025 (Approximate), Expires: 01/08/2026 [facility] Work Phone: Comment on above: Expected: 01/08/2025 (Approximate), Expi res: 01/08/2026 Start: 01-08-2025 End: 01-08-2026 Protein [Mass/volume] in 24 hour Urine Protein, Total 24 Hour Urine Lab Routine Gestational hypertension, second trimester ([facility]) Expected: 01/08/2025 (Approximate), Expires: 01/08/2026 [facility] Work Phone: Comment on above: Expected: 01/08/2025 (Approximate), Expi res: 01/08/2026 Start: 01-06-2025 End: 01-06-2025 ambulatory 01/06/2025 1:[address] [facility] [address] [facility] [address] [place] [phone] [place] [address] [place] [address] [facility] Start: 01-06-2025 End: 01-06-2025 Patient encounter procedure 01/06/2025 12:[address] [facility] [address] [place] [address] [facility] Start: 01-01-2025 End: 01-01-2025 ambulatory 01/01/2025 1:00 PM EST Initial [facility] [address] [place] [address] [place] [address] [place] [address] [facility] Start: 12-25-2024 End: 12-25-2024 Patient encounter procedure 12/25/2024 11:30 AM EST Routine [facility] [address] [place] [phone] [facility] Start: 07-06-2024 COVID-19 Vaccine ( season) COVID-19 Vaccine ( season) [facility] Start: 07-06-2024 Influenza vaccination Influenza Vaccine (#1) [facility] Start: 02-22-2024 [facility] Start: 12-05-2023 [facility] Start: 11-17-2023 [facility] Start: 10-25-2023 [facility] Start: 09-05-2023 [facility] Start: 09-05-2023 Enteric precautions [facility] Start: 06-05-2021 Screening for malignant neoplasm of cervix [facility] Start: 10-22-2020 Screening for malignant neoplasm of cervix [facility] Start: 2019 Screening for malignant neoplasm of cervix HPV/[facility]est [facility] Start: 02-10-2019 End: 02-10-2019 Ambulatory 02/10/2019 Office Visit Gastroenterology Lupe Vo MD [address] [facility] [place] [id number] Division of Gastroenterology and Hepatology [place] Start: 10-22-2018 Screening for malignant neoplasm of cervix PAP SMEAR DISCUSSION [facility] Work Phone: Start: 10-07-2018 End: 10-07-2019 HCG ( test) Ql BETA HCG, QUANT, BLOOD Routine Amenorrhea Expected: 10/07/2018, Expires: 10/07/2019 [facility] Work Phone: Comment on above: Expected: 10/07/2018, Expires: 9 Start: 07-25-2018 Colonoscopy COLONOSCOPY [facility] Work Phone: Start: 07-06-2018 Influenza vaccination [facility] Start: 2011 DTaP/Tdap/Td Vaccines (1 - Tdap) DTaP/Tdap/Td Vaccines (1 - Tdap) [facility] Start: 2010 DTaP/Tdap/Td Vaccines (1 - Tdap) DTaP/Tdap/Td Vaccines (1 - Tdap) [facility] Start: 2010 [facility] Start: 2009 [facility] malignant [facility]ix [facility] Start: 2008 DTaP/Tdap/Td Vaccines (1 - Tdap) DTaP/Tdap/Td Vaccines (1 - Tdap) [facility] Start: 2008 Hepatitis B Vaccines (1 of 3 - 19+ 3-dose series) Hepatitis B Vaccines (1 of 3 - 19+ 3-dose series) [facility] Start: 2007 Diabetes mellitus screening Diabetes Screening [facility] Start: 2007 Hepatitis B Vaccines (1 of 3 - 19+ 3-dose series) Hepatitis B Vaccines (1 of 3 - 19+ 3-dose series) [facility] Start: 2007 Hepatitis C screening Hepatitis C Screening [facility] Start: 2007 PNEUMOCOCCAL VACCINE SERIES (1 of 3 - PCV13) PNEUMOCOCCAL VACCINE SERIES (1 of 3 - PCV13) [facility] Work Phone: Start: 2007 Pneumococcal Vaccine: Pediatrics and At-Risk Adult Patients (1 of 2 - PCV) Pneumococcal Vaccine: Pediatrics and At-Risk Adult Patients (1 of 2 - PCV) [facility] Start: 2007 Third diphtheria, tetanus and acellular pertussis (DTaP) vaccination TDAP (ADULT) [facility] Work Phone: Start: 2006 Hepatitis C screening Hepatitis C Screening [facility] Start: 2006 Tetanus vaccination TETANUS [facility] Work Phone: Start: 2002 Varicella vaccination Varicella Vaccines (1 of 2 - 13+ 2-dose series) [facility] Start: 2001 Depression Monitoring Depression Monitoring [facility] Start: 2001 Varicella vaccination Varicella Vaccines (1 of 2 - 13+ 2-dose series) [facility] Start: 1998 Glaucoma screening Diabetes: Retinopathy Screening [facility] Start: 1990 Hepatitis B Surface Antibody Hepatitis B Surface Antibody [facility] Start: 1990 MMR Vaccines (1 of 1 - Standard series) MMR Vaccines (1 of 1 - Standard series) [facility] Start: 1989 Cyanocobalamin vitamin b-12 Vitamin B-12 [facility] Start: 1989 Lip[address] Lipid Panel [facility] Start: 1989 MMR Vaccines (1 of 1 - Standard series) MMR Vaccines (1 of 1 - Standard series) [facility] Start: 1989 Screening for osteoporosis Bone Density Scan [facility] Start: 1989 TB Test TB Test [facility] Start: 1989 Vitamin D25-OH Vitamin D25-OH [facility] Start: 1989 Yearly Adult Physical Yearly Adult Physical [facility] Start: 1988 Cyanocobalamin vitamin b-12 Vitamin B-12 [facility] Start: 1988 Lipid panel Lipid Panel [facility] Start: 1988 Screening for malignant neoplasm of cervix PAP SMEAR [facility] Start: 1988 Screening for osteoporosis Bone Density Scan [facility] Start: 1988 TB Test TB Test [facility] Start: 1988 Tetanus vaccination TETANUS EVERY 10 YR [facility] Start: 1988 Urine screening for protein Diabetes: Urine Protein Screening [facility] Start: 1988 Vitamin D25-OH Vitamin D25-OH [facility] Start: 1988 Yearly Adult Physical Yearly Adult Physical [facility] Bacteria identified Cx Nom (Bld) [facility] End: 12-25-2025 CBC panel - Blood by Automated count CBC Lab Routine Gestational hypertension, second trimester ([facility]) Once a week for 12 Occurrences starting 12/25/2024 until 12/25/2025 [facility] Work Phone: Comment on above: Once a week for 12 Occurrences starting 12/25/2024 until 12/25/2025 End: 02-12-2025 Chlamydia trachomatis and Neisseria gonorrhoeae DNA [Identifier] in Unspecified specimen by JYOTI with probe detection C. trachomatis / N. gonorrhoeae, Amplified, Urogenital Lab Add-On Once (Lab) for 1 Occurrences starting 02/12/2025 until 02/12/[address] [facility] Service Area Work Phone: Comment on above: Once (Lab) for 1 Occurrences starting until 02/12/2025 End: 12-25-2025 Comprehensive metabolic 2000 panel - Serum or Plasma Comprehensive Metabolic Panel Lab Routine Gestational hypertension, second trimester ([facility]) Once a week for 12 Occurrences starting 12/25/2024 until 12/25/2025 [facility] Work Phone: Comment on above: Once a week for 12 Occurrences starting 12/25/2024 until 12/25/2025 Electrocardiogram, 12-lead PRN ACS symptoms Electrocardiogram, 12-lead PRN ACS symptoms ECG Routine As needed until discontinued starting 12/23/2024 [facility] Work Phone: Comment on above: As needed until discontinued starting Electrocardiogram, 12-lead PRN ACS symptoms Electrocardiogram, 12-lead PRN ACS symptoms ECG Routine As needed until discontinued starting 12/23/2024 [facility] Work Phone: Comment on above: As needed until discontinued starting Electrocardiogram, 12-lead PRN ACS symptoms Electrocardiogram, 12-lead PRN ACS symptoms ECG Routine As needed until discontinued starting 01/08/2025 [facility] Work Phone: Comment on above: As needed until discontinued starting Electrocardiogram, 12-lead PRN ACS symptoms Electrocardiogram, 12-lead PRN ACS symptoms ECG Routine As needed until discontinued starting 02/13/2025 [facility] Work Phone: Comment on above: As needed until discontinued starting Electrocardiogram, 12-lead PRN ACS symptoms Electrocardiogram, 12-lead PRN ACS symptoms ECG Routine As needed until discontinued starting 02/16/2025 [facility] Work Phone: Comment on above: As needed until discontinued starting Electrocardiogram, 12-lead PRN ACS symptoms Electrocardiogram, 12-lead PRN ACS symptoms ECG Routine As needed until discontinued starting 03/01/[address] [facility] Service Area Work Phone: Comment on above: As needed until discontinued starting Gas panel - Arterial cord blood Blood Gas Cord Arterial Lab Timed As needed (Lab) until discontinued starting 12/23/2024 [facility] Work Phone: Comment on above: As needed (Lab) until discontinued start ing 12/23/2024 Gas panel - Arterial cord blood Blood Gas Cord Arterial Lab Routine As needed (Lab) until discontinued starting 02/13/2025 [facility] Work Phone: Comment on above: As needed (Lab) until discontinued start ing 02/13/2025 Gas panel - Venous cord blood Blood Gas Cord Venous Lab Timed As needed (Lab) until discontinued starting 12/23/2024 [facility] Work Phone: Comment on above: As needed (Lab) until discontinued start ing 12/23/2024 Gas panel - Venous cord blood Blood Gas Cord Venous Lab Routine As needed (Lab) until discontinued starting 02/13/2025 [facility] Work Phone: Comment on above: As needed (Lab) until discontinued start ing 02/13/2025 Glucose [Mass/volume ] in Serum or Plasma POCT Glucose Point of Care Testing - Docked Device Routine As needed (Lab) until discontinued starting 12/23/2024 [facility] Work Phone: Comment on above: As needed (Lab) until discontinued start ing 12/23/2024 Glucose [Mass/volume ] in Serum or Plasma [facility] Work Phone: Comment on above: Every Morning (Lab) until discontinued s tarting 12/24/2024, 1 completed 3 times daily after meals (Lab) until discontinued starting 12/24/2024, 3 completed End: 12-23-2024 Nonstress test [facility] Work Phone: Comment on above: Once for 1 Occurrences starting 12/23/19 until 12/23/2024 Daily until disconti nued starting 12/24/2024 As needed until disc ontinued starting 12/23/2024 End: 01-08-2025 Nonstress test nonstress test (>= 23 weeks) Procedures Routine Once for 1 Occurrences starting 01/08/2025 until 01/08/2025 [facility] Work Phone: Comment on above: Once for 1 Occurrences starting 01/09/20 until 01/08/2025 Patient Education [facility] Work Phone: Patient referral [facility] Work Phone: End: 02-16-2025 POCT UA (nonautomated) manually resulted POCT UA (nonautomated) manually resulted Point of Care Testing Routine Once (Lab) for 1 Occurrences starting 02/16/2025 until 02/16/2025 [facility] Work Phone: Comment on above: Once (Lab) for 1 Occurrences starting until 02/16/2025 End: 03-01-2025 POCT UA (nonautomated) manually resulted POCT UA (nonautomated) manually resulted Point of Care Testing Routine Once (Lab) for 1 Occurrences starting 03/01/2025 until 03/01/2025 [facility] Work Phone: Comment on above: Once (Lab) for 1 Occurrences starting until 03/01/2025 End: 01-08-[address] [facility] Service Area Work Phone: Comment on above: Once for 1 Occurrences starting 01/09/20 until 01/08/2025 End: 01-29-[address] [facility] Service Area Work Phone: Comment on above: Once for 1 Occurrences starting 01/30/20 until 01/29/2025 Immunizations Immunization Date Immunization Notes Care Provider Gerard bain 05-01-2015 PPD (MANTOUX TEST); Translations: [PPD (MANT[place]X TEST)] Joseph Renteria [facility] Work Phone: 02-13-2014 tuberculin skin test ; purified protein derivative solution, intradermal Zoë Santana MD Work Phone: [facility] NEGATED: Highlighted row has not occurred!02-15-2025 measles, mumps and rubella virus vaccine Earl Colorado MD Work Phone: [facility] Comment on above: Deferred: No longer needed Payers Date Payer Category Payer Medicaid MEDICAID [id number] 2024 Unknown [id number] 2023 [employer] Managed Care [id number] 2023 Mj Cervantes ld Managed Care - O BRAD BLUE CROSS Member Subscriber Plan / Payer (Effective 2023-Present) Name: Dayna Tinsley Relation to Subscriber: Self Name: Dayna Tinsley Payer ID: [id number] (NAIC) Type: Commercial Address: [place] [id number] 2023 Unknown [id number] 2023 Unknown [id number] 2022 Self-pay [id number] 2018 Private Health Insurance [id number] 2015 Medicaid [id number] 1989 Unknown [id number] 2.16.840.1.623129.3.579.2. 627 1989 Unknown [id number] 2.16.840.1.314983.3.579.2. 627 1989 Unknown [id number] 2.16.840.1.912946.3.579.2. 479 1989 Unknown [id number] 2.16.840.1.524951.3.579.2. 479 1989 Unknown [id number] 2.16.840.1.968980.3.579.2. 479 1989 Unknown [id number] 2.16.840.1.077187.3.579.2. 479 1989 Unknown [id number] 2.16.840.1.946133.3.579.2. 1244 1989 Unknown [id number] 2.16.840.1.417147.3.579.2. 1244 1989 Unknown [id number] 2.16.840.1.171741.3.579.2. 1244 1989 Unknown [id number] 2.16.840.1.451669.3.579.2. 1244 1989 Unknown [id number] 2.16.840.1.948089.3.579.2. 1244 1989 Unknown [id number] 2.16.840.1.815753.3.579.2. 1244 1989 Unknown [id number] 2.16.840.1.014139.3.579.2. 1244 1989 Unknown [id number] 2.16.840.1.574715.3.579.2. 1244 1989 Unknown [id number] 2.16.840.1.231352.3.579.2. 1244 1989 Unknown [id number] 2.16.840.1.820125.3.579.2. 1244 1989 Unknown [id number] 2.16.840.1.454572.3.579.2. 1244 1989 Unknown [id number] 2.16.840.1.085963.3.579.2. 1244 1989 Unknown [id number] 2.16.840.1.753966.3.579.2. 1244 1989 Unknown [id number] 2.16.840.1.535567.3.579.2. 1244 1989 Unknown [id number] 2.16.840.1.273936.3.579.2. 1244 1989 Unknown [id number] 2.16.840.1.358507.3.579.2. 1244 1989 Unknown [id number] 2.16.840.1.562347.3.579.2. 1245 1989 Unknown [id number] 2.16.840.1.058430.3.579.2. 1244 1988 Unknown [id number] 2.16.840.1.331497.3.579.2. 430 1988 Unknown [id number] 2.16.840.1.655843.3.579.2. 902 1988 Unknown [id number] 2.16.840.1.610910.3.579.2. 173 1988 Unknown [id number] 2.16.840.1.034388.3.579.2. 173 1988 Unknown [id number] 2.16.840.1.833683.3.579.2. 173 1988 Unknown [id number] 2.16.840.1.959598.3.579.2. 174 1988 Unknown [id number] 2.16.840.1.473145.3.579.2. 174 1988 Unknown [id number] 2.16.840.1.798642.3.579.2. 174 1988 Unknown [id number] 2.16.840.1.388951.3.579.2. 174 1988 Unknown [id number] 2.16.840.1.749138.3.579.2. 174 1988 Unknown [id number] 2.16.840.1.065064.3.579.2. 174 1988 Unknown [id number] 2.16.840.1.968639.3.579.2. 732 1988 Unknown [id number] 2.16.840.1.554265.3.579.2. 903 1988 Unknown [id number] 2.16.840.1.230427.3.579.2. 903 1988 Unknown [id number] 2.16.840.1.632177.3.579.2. 1245 1988 Unknown [id number] 2.840.1.607267.3.579.2. 1245 1988 Unknown [id number] 2.840.1.194401.3.579.2. 1244 1988 Unknown [id number] 2.840.1.279923.3.579.2. 1244 1988 Unknown [id number] 2.840.1.428172.3.579.2. 1244 Unknown Unknown ANTHEM [id number] Unknown [id number] Unknown [facility] [id number] Unknown [id number] 2.0.1.337162.3.579.2. 462 Unknown [id number] 2.0.1.102930.3.579.2. 462 Unknown [id number] 2.840.1.510309.3.579.2. 462 Unknown [id number] 2.840.1.020506.3.579.2. 462 Unknown [id number] .0.1.212611.3.579.2. 462 Unknown [id number] .840.1.199815.3.579.2. 462 Unknown [id number] .0.1.534019.3.579.2. 462 Unknown [id number] 2.840.1.984084.3.579.2. 462 Unknown [id number] 2.840.1.760166.3.579.2. 462 Unknown [id number] 2.840.1.068762.3.579.2. 462 Unknown [id number] 2.16.840.1.059539.3.579.2. 462 Unknown [id number] 2.16.840.1.305051.3.579.2. 462 Unknown [id number] 2.16.840.1.146089.3.579.2. 462 Unknown [id number] 2.16.840.1.688678.3.579.2. 462 Unknown [id number] 2.16.840.1.570860.3.579.2. 462 Unknown [id number] 2.16.840.1.467071.3.579.2. 462 Unknown [id number] 2.840.1.161423.3.579.2. 462 Unknown [id number] 2.16.840.1.862026.3.579.2. 462 Unknown [id number] 2.840.1.425243.3.579.2. 462 Unknown [id number] 2.16.840.1.457712.3.579.2. 462 Unknown [id number] 2.16.840.1.365241.3.579.2. 462 Unknown [id number] 2.16.840.1.851363.3.579.2. 462 Unknown [id number] 2.16.840.1.810559.3.579.2. 462 Unknown [id number] 2.16840.1.744445.3.579.2. 462 Unknown [id number] 2.16.840.1.603940.3.579.2. 462 Unknown [id number] 2.16.840.1.082296.3.579.2. 462 Unknown [id number] 2.16.840.1.228614.3.579.2. 462 Unknown [id number] 2.16.840.1.381906.3.579.2. 462 Unknown [id number] 2.16.840.1.935048.3.579.2. 462 Unknown [id number] 2.16.840.1.131552.3.579.2. 462 Unknown [id number] 2.16840.1.604351.3.579.2. 462 Unknown [id number] 2.16.840.1.063846.3.579.2. 462 Unknown [id number] 2.840.1.571110.3.579.2. 462 Unknown [id number] 2.840.1.383920.3.579.2. 462 Unknown [id number] 2.840.1.250200.3.579.2. 462 Unknown [id number] 2.840.1.988970.3.579.2. 462 Unknown [id number] 2.840.1.677210.3.579.2. 462 Unknown [id number] 2.840.1.608844.3.579.2. 462 Unknown [id number] 2.840.1.046529.3.579.2. 462 Unknown [id number] 2.840.1.025615.3.579.2. 462 Unknown [id number] 2.840.1.005754.3.579.2. 462 Unknown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 Evaluation note* Diagnosis Hyperglycemia in (HHS-HCC)- Primary Insulin controlled gestational diabetes mellitus (GDM) in second trimester (HHS-HCC) Gestational hypertension, second trimester (HHS-HCC) 26 weeks gestation of (HHS-HCC) Screening, , for anatomic survey ([facility]) Encounter for anatomic survey Encounter for follow-up ultrasound of anatomy Gestational diabetes requiring insulin ([facility]) Abnormal maternal glucose tolerance, complicating , childbirth, or the puerperium, unspecified as to episode of care AMA (advanced maternal age) multigravida 35+ ([facility]) Obesity affecting ([facility]) documented in this encounter [facility] Work Phone: Evaluation note* Diagnosis Gestational hypertension, second trimester ([facility])- Primary 26 weeks gestation of ([facility])- Primary Insulin controlled gestational diabetes mellitus (GDM) in second trimester ([facility]) Gestational hypertension, second trimester ([facility]) Hyperglycemia in ([facility]) Crohn's disease with complication, unspecified gastrointestinal tract location Depression affecting in second trimester, antepartum ([facility] [facility] Anxiety during in second trimester, antepartum ([facility]) headache in second trimester ([facility])- Primary Gestational hypertension, second trimester ([facility]) Insulin controlled gestational diabetes mellitus (GDM) in second trimester ([facility]) 27 weeks gestation of ([facility]) Gastroesophageal reflux disease without esophagitis Esophageal reflux Crohn's disease with complication, unspecified gastrointestinal tract location Gestational hypertension, second trimester ([facility]) documented in this encounter [facility] Work Phone: Evaluation note* Diagnosis 26 weeks gestation of ([facility])- Primary Insulin controlled gestational diabetes mellitus (GDM) in second trimester ([facility]) Gestational hypertension, second trimester ([facility]) Hyperglycemia in ([facility]) Crohn's disease with complication, unspecified gastrointestinal tract location Depression affecting in second trimester, antepartum ([facility]) Anxiety during in second trimester, antepartum ([facility]) headache in second trimester ([facility])- Primary Gestational hypertension, second trimester ([facility]) Insulin controlled gestational diabetes mellitus (GDM) in second trimester ([facility]) 27 weeks gestation of ([facility]) Gastroesophageal reflux disease without esophagitis Esophageal reflux Crohn's disease with complication, unspecified gastrointestinal tract location Screening, , for anatomic survey ([facility]) Encounter for anatomic survey Gestational hypertension ([facility]) Unspecified hypertension complicating , childbirth, or the puerperium, unspecified as to episode of care Obesity affecting ([facility]) Gestational diabetes mellitus (GDM) AMA (advanced maternal age) multigravida 35+ ([facility]) documented in this encounter [facility] Work Phone: Evaluation note* Diagnosis 26 weeks gestation of ([facility])- Primary Insulin controlled gestational diabetes mellitus (GDM) in second trimester ([facility]) Gestational hypertension, second trimester ([facility]) Hyperglycemia in ([facility]) Crohn's disease with complication, unspecified gastrointestinal tract location Depression affecting in second trimester, antepartum ([facility]) Anxiety during in second trimester, antepartum ([facility]) headache in second trimester ([facility])- Primary Gestational hypertension, second trimester ([facility]) Insulin controlled gestational diabetes mellitus (GDM) in second trimester ([facility]) 27 weeks gestation of ([facility]) Gastroesophageal reflux disease without esophagitis Esophageal reflux Crohn's disease with complication, unspecified gastrointestinal tract location Screening, , for anatomic survey ([facility]) Encounter for anatomic survey Obesity affecting in third trimester ([facility]) Gestational diabetes mellitus (GDM) requiring insulin ([facility]) Gestational hypertension w/o significant proteinuria in 3rd trimester ([facility]) 28 weeks gestation of ([facility])- Primary Gestational hypertension, second trimester ([facility]) Insulin controlled gestational diabetes mellitus (GDM) in second trimester ([facility]) Anxiety during in second trimester, antepartum ([facility]) History of HELLP syndrome, currently ([facility]) with other poor obstetric history Depression affecting in second trimester, antepartum ([facility]) History of loop electrosurgical excision procedure (LEEP) of cervix affecting in second trimester ([facility]) headache in second trimester ([facility]) Headache in , antepartum ([facility]) psychosis (Multi) Mental disorders of mother, complicating , childbirth, or the puerperium, unspecified as to episode of care documented in this encounter [facility] Work Phone: Evaluation note* Diagnosis 26 weeks gestation of ([facility])- Primary Insulin controlled gestational diabetes mellitus (GDM) in second trimester ([facility]) Gestational hypertension, second trimester ([facility]) Hyperglycemia in ([facility]) Crohn's disease with complication, unspecified gastrointestinal tract location Depression affecting in second trimester, antepartum ([facility]) Anxiety during in second trimester, antepartum ([facility]) headache in second trimester ([facility])- Primary Gestational hypertension, second trimester ([facility]) Insulin controlled gestational diabetes mellitus (GDM) in second trimester ([facility]) 27 weeks gestation of ([facility]) Gastroesophageal reflux disease without esophagitis Esophageal reflux Crohn's disease with complication, unspecified gastrointestinal tract location 28 weeks gestation of ([facility])- Primary Gestational hypertension, second trimester ([facility]) Insulin controlled gestational diabetes mellitus (GDM) in second trimester ([facility]) Anxiety during in second trimester, antepartum ([facility]) History of HELLP syndrome, currently ([facility]) with other poor obstetric history Depression affecting in second trimester, antepartum ([facility]) History of loop electrosurgical excision procedure (LEEP) of cervix affecting in second trimester ([facility]) headache in second trimester ([facility]) Headache in , antepartum ([facility]) psychosis (Multi) Mental disorders of mother, complicating , childbirth, or the puerperium, unspecified as to episode of care Gestational hypertension, second trimester ([facility]) Insulin controlled gestational diabetes mellitus (GDM) in third trimester ([facility]) Gestational hypertension w/o significant proteinuria in 3rd trimester ([facility]) Gestational hypertension, third trimester ([facility])- Primary Insulin controlled gestational diabetes mellitus (GDM) in third trimester ([facility]) 29 weeks gestation of ([facility]) Depression affecting in second trimester, antepartum ([facility]) headache in third trimester ([facility]) Polyhydramnios in third trimester complication, single or unspecified fetus ([facility]) documented in this encounter [facility] Work Phone: Evaluation note* Diagnosis 26 weeks gestation of ([facility])- Primary Insulin controlled gestational diabetes mellitus (GDM) in second trimester ([facility]) Gestational hypertension, second trimester ([facility]) Hyperglycemia in ([facility]) Crohn's disease with complication, unspecified gastrointestinal tract location Depression affecting in second trimester, antepartum ([facility]) Anxiety during in second trimester, antepartum ([facility]) headache in second trimester ([facility])- Primary Gestational hypertension, second trimester ([facility]) Insulin controlled gestational diabetes mellitus (GDM) in second trimester ([facility]) 27 weeks gestation of ([facility]) Gastroesophageal reflux disease without esophagitis Esophageal reflux Crohn's disease with complication, unspecified gastrointestinal tract location 28 weeks gestation of ([facility])- Primary Gestational hypertension, second trimester ([facility]) Insulin controlled gestational diabetes mellitus (GDM) in second trimester ([facility]) Anxiety during in second trimester, antepartum ([facility]) History of HELLP syndrome, currently ([facility]) with other poor obstetric history Depression affecting in second trimester, antepartum ([facility]) History of loop electrosurgical excision procedure (LEEP) of cervix affecting in second trimester ([facility]) headache in second trimester ([facility]) Headache in , antepartum ([facility]) psychosis (Multi) Mental disorders of mother, complicating , childbirth, or the puerperium, unspecified as to episode of care Gestational hypertension, third trimester ([facility])- Primary Insulin controlled gestational diabetes mellitus (GDM) in third trimester ([facility]) 29 weeks gestation of ([facility]) Depression affecting in second trimester, antepartum ([facility]) headache in third trimester ([facility]) Polyhydramnios in third trimester complication, single or unspecified fetus ([facility]) Gestational hypertension, second trimester ([facility]) Insulin controlled gestational diabetes mellitus (GDM) in third trimester ([facility]) Gestational hypertension, third trimester ([facility])- Primary Insulin controlled gestational diabetes mellitus (GDM) in third trimester ([facility]) Depression affecting in third trimester, antepartum ([facility]) 30 weeks gestation of ([facility]) Polyhydramnios in third trimester complication, single or unspecified fetus ([facility]) History of HELLP syndrome, currently ([facility]) with other poor obstetric history History of loop electrosurgical excision procedure (LEEP) of cervix affecting in second trimester ([facility]) headache in third trimester ([facility]) Insulin controlled gestational diabetes mellitus (GDM) in second trimester ([facility]) documented in this encounter [facility] Work Phone: Evaluation note* Diagnosis 26 weeks gestation of ([facility])- Primary Insulin controlled gestational diabetes mellitus (GDM) in second trimester ([facility]) Gestational hypertension, second trimester ([facility]) Hyperglycemia in ([facility]) Crohn's disease with complication, unspecified gastrointestinal tract location Depression affecting in second trimester, antepartum ([facility]) Anxiety during in second trimester, antepartum headache in second trimester ([facility])- Primary Gestational hypertension, second trimester ([facility]) Insulin controlled gestational diabetes mellitus (GDM) in second trimester ([facility]) 27 weeks gestation of ([facility]) Gastroesophageal reflux disease without esophagitis Esophageal reflux Crohn's disease with complication, unspecified gastrointestinal tract location 28 weeks gestation of ([facility])- Primary Gestational hypertension, second trimester ([facility]) Insulin controlled gestational diabetes mellitus (GDM) in second trimester ([facility]) Anxiety during in second trimester, antepartum History of HELLP syndrome, currently ([facility]) with other poor obstetric history Depression affecting in second trimester, antepartum ([facility]) History of loop electrosurgical excision procedure (LEEP) of cervix affecting in second trimester headache in second trimester ([facility]) Headache in , antepartum ([facility]) psychosis (Multi) Mental disorders of mother, complicating , childbirth, or the puerperium, unspecified as to episode of care Gestational hypertension, third trimester ([facility])- Primary Insulin controlled gestational diabetes mellitus (GDM) in third trimester ([facility]) 29 weeks gestation of ([facility]) Depression affecting in second trimester, antepartum ([facility]) headache in third trimester ([facility]) Polyhydramnios in third trimester complication, single or unspecified fetus ([facility]) Gestational hypertension, third trimester ([facility])- Primary Insulin controlled gestational diabetes mellitus (GDM) in third trimester ([facility]) Depression affecting in third trimester, antepartum ([facility]) 30 weeks gestation of ([facility]) Polyhydramnios in third trimester complication, single or unspecified fetus ([facility]) History of HELLP syndrome, currently ([facility]) with other poor obstetric history History of loop electrosurgical excision procedure (LEEP) of cervix affecting in second trimester headache in third trimester ([facility]) Insulin controlled gestational diabetes mellitus (GDM) in second trimester ([facility]) Gestational hypertension, second trimester ([facility]) Insulin controlled gestational diabetes mellitus (GDM) in third trimester ([facility]) Gestational hypertension w/o significant proteinuria in 3rd trimester ([facility]) Gestational hypertension, third trimester ([facility])- Primary Insulin controlled gestational diabetes mellitus (GDM) in third trimester ([facility]) 32 weeks gestation of ([facility]) Crohn's disease with complication, unspecified gastrointestinal tract location History of HELLP syndrome, currently ([facility]) with other poor obstetric history Depression affecting in third trimester, antepartum ([facility]) History of loop electrosurgical excision procedure (LEEP) of cervix affecting in second trimester headache in third trimester ([facility]) Polyhydramnios in third trimester complication, single or unspecified fetus ([facility]) documented in this encounter [facility] Work Phone: Evaluation note* Diagnosis 26 weeks gestation of ([facility])- Primary Insulin controlled gestational diabetes mellitus (GDM) in second trimester ([facility]) Gestational hypertension, second trimester ([facility]) Hyperglycemia in ([facility]) Crohn's disease with complication, unspecified gastrointestinal tract location Depression affecting in second trimester, antepartum ([facility]) Anxiety during in second trimester, antepartum headache in second trimester ([facility])- Primary Gestational hypertension, second trimester ([facility]) Insulin controlled gestational diabetes mellitus (GDM) in second trimester ([facility]) 27 weeks gestation of ([facility]) Gastroesophageal reflux disease without esophagitis Esophageal reflux Crohn's disease with complication, unspecified gastrointestinal tract location 28 weeks gestation of ([facility])- Primary Gestational hypertension, second trimester ([facility]) Insulin controlled gestational diabetes mellitus (GDM) in second trimester ([facility]) Anxiety during in second trimester, antepartum History of HELLP syndrome, currently ([facility]) with other poor obstetric history Depression affecting in second trimester, antepartum ([facility]) History of loop electrosurgical excision procedure (LEEP) of cervix affecting in second trimester headache in second trimester ([facility]) Headache in , antepartum ([facility]) psychosis (Multi) Mental disorders of mother, complicating , childbirth, or the puerperium, unspecified as to episode of care Gestational hypertension, third trimester ([facility])- Primary Insulin controlled gestational diabetes mellitus (GDM) in third trimester ([facility]) 29 weeks gestation of ([facility]) Depression affecting in second trimester, antepartum ([facility]) headache in third trimester ([facility]) Polyhydramnios in third trimester complication, single or unspecified fetus ([facility]) Gestational hypertension, third trimester ([facility])- Primary Insulin controlled gestational diabetes mellitus (GDM) in third trimester ([facility]) Depression affecting in third trimester, antepartum ([facility]) 30 weeks gestation of ([facility]) Polyhydramnios in third trimester complication, single or unspecified fetus ([facility]) History of HELLP syndrome, currently ([facility]) with other poor obstetric history History of loop electrosurgical excision procedure (LEEP) of cervix affecting in second trimester headache in third trimester ([facility]) Insulin controlled gestational diabetes mellitus (GDM) in second trimester ([facility]) Gestational hypertension, third trimester ([facility])- Primary Insulin controlled gestational diabetes mellitus (GDM) in third trimester ([facility]) 32 weeks gestation of ([facility]) Crohn's disease with complication, unspecified gastrointestinal tract location History of HELLP syndrome, currently ([facility]) with other poor obstetric history Depression affecting in third trimester, antepartum ([facility]) History of loop electrosurgical excision procedure (LEEP) of cervix affecting in second trimester headache in third trimester ([facility]) Polyhydramnios in third trimester complication, single or unspecified fetus ([facility]) Severe preeclampsia, third trimester ([facility])- Primary Severe preeclampsia, third trimester ([facility]) care following vaginal delivery ([facility]) Depression affecting in third trimester, antepartum ([facility]) Gastroesophageal reflux disease, unspecified whether esophagitis present documented in this encounter [facility] Work Phone: Evaluation note* Diagnosis 26 weeks gestation of ([facility])- Primary Insulin controlled gestational diabetes mellitus (GDM) in second trimester ([facility]) Gestational hypertension, second trimester ([facility]) Hyperglycemia in ([facility]) Crohn's disease with complication, unspecified gastrointestinal tract location Depression affecting in second trimester, antepartum ([facility]) Anxiety during in second trimester, antepartum headache in second trimester ([facility])- Primary Gestational hypertension, second trimester ([facility]) Insulin controlled gestational diabetes mellitus (GDM) in second trimester ([facility]) 27 weeks gestation of ([facility]) Gastroesophageal reflux disease without esophagitis Esophageal reflux Crohn's disease with complication, unspecified gastrointestinal tract location 28 weeks gestation of ([facility])- Primary Gestational hypertension, second trimester ([facility]) Insulin controlled gestational diabetes mellitus (GDM) in second trimester ([facility]) Anxiety during in second trimester, antepartum History of HELLP syndrome, currently ([facility]) with other poor obstetric history Depression affecting in second trimester, antepartum ([facility]) History of loop electrosurgical excision procedure (LEEP) of cervix affecting in second trimester headache in second trimester ([facility]) Headache in , antepartum ([facility]) psychosis (Multi) Mental disorders of mother, complicating , childbirth, or the puerperium, unspecified as to episode of care Gestational hypertension, third trimester ([facility])- Primary Insulin controlled gestational diabetes mellitus (GDM) in third trimester ([facility]) 29 weeks gestation of ([facility]) Depression affecting in second trimester, antepartum ([facility]) headache in third trimester ([facility]) Polyhydramnios in third trimester complication, single or unspecified fetus ([facility]) Gestational hypertension, third trimester ([facility])- Primary Insulin controlled gestational diabetes mellitus (GDM) in third trimester ([facility]) Depression affecting in third trimester, antepartum ([facility]) 30 weeks gestation of ([facility]) Polyhydramnios in third trimester complication, single or unspecified fetus ([facility]) History of HELLP syndrome, currently ([facility]) with other poor obstetric history History of loop electrosurgical excision procedure (LEEP) of cervix affecting in second trimester headache in third trimester ([facility]) Insulin controlled gestational diabetes mellitus (GDM) in second trimester ([facility]) Gestational hypertension, third trimester ([facility])- Primary Insulin controlled gestational diabetes mellitus (GDM) in third trimester ([facility]) 32 weeks gestation of ([facility]) Crohn's disease with complication, unspecified gastrointestinal tract location History of HELLP syndrome, currently ([facility]) with other poor obstetric history Depression affecting in third trimester, antepartum ([facility]) History of loop electrosurgical excision procedure (LEEP) of cervix affecting in second trimester headache in third trimester ([facility]) Polyhydramnios in third trimester complication, single or unspecified fetus ([facility]) Severe preeclampsia, third trimester ([facility])- Primary Insulin controlled gestational diabetes mellitus (GDM) in second trimester ([facility]) documented in this encounter [facility] Work Phone: Evaluation note* Diagnosis 26 weeks gestation of ([facility])- Primary Insulin controlled gestational diabetes mellitus (GDM) in second trimester ([facility]) Gestational hypertension, second trimester ([facility]) Hyperglycemia in ([facility]) Crohn's disease with complication, unspecified gastrointestinal tract location Depression affecting in second trimester, antepartum ([facility]) Anxiety during in second trimester, antepartum headache in second trimester ([facility])- Primary Gestational hypertension, second trimester ([facility]) Insulin controlled gestational diabetes mellitus (GDM) in second trimester ([facility]) 27 weeks gestation of ([facility]) Gastroesophageal reflux disease without esophagitis Esophageal reflux Crohn's disease with complication, unspecified gastrointestinal tract location Gestational hypertension, third trimester ([facility])- Primary Insulin controlled gestational diabetes mellitus (GDM) in third trimester ([facility]) 29 weeks gestation of ([facility]) Depression affecting in second trimester, antepartum ([facility]) headache in third trimester ([facility]) Polyhydramnios in third trimester complication, single or unspecified fetus ([facility]) Gestational hypertension, third trimester ([facility])- Primary Insulin controlled gestational diabetes mellitus (GDM) in third trimester ([facility]) Depression affecting in third trimester, antepartum ([facility]) 30 weeks gestation of ([facility]) Polyhydramnios in third trimester complication, single or unspecified fetus ([facility]) History of HELLP syndrome, currently ([facility]) with other poor obstetric history History of loop electrosurgical excision procedure (LEEP) of cervix affecting in second trimester headache in third trimester ([facility]) Insulin controlled gestational diabetes mellitus (GDM) in second trimester ([facility]) Benign essential HTN- Primary Fatigue, unspecified type [...] Anxiety state, unspecified documented in this encounter [facility] Work Phone: Evaluation note* Diagnosis 26 weeks gestation of ([facility])- Primary Insulin controlled gestational diabetes mellitus (GDM) in second trimester ([facility]) Gestational hypertension, second trimester ([facility]) Hyperglycemia in ([facility]) Crohn's disease with complication, unspecified gastrointestinal tract location Depression affecting in second trimester, antepartum ([facility]) Anxiety during in second trimester, antepartum headache in second trimester ([facility])- Primary Gestational hypertension, second trimester ([facility]) Insulin controlled gestational diabetes mellitus (GDM) in second trimester ([facility]) 27 weeks gestation of ([facility]) Gastroesophageal reflux disease without esophagitis Esophageal reflux Crohn's disease with complication, unspecified gastrointestinal tract location Gestational hypertension, third trimester ([facility])- Primary Insulin controlled gestational diabetes mellitus (GDM) in third trimester ([facility]) 29 weeks gestation of ([facility]) Depression affecting in second trimester, antepartum ([facility]) headache in third trimester ([facility]) Polyhydramnios in third trimester complication, single or unspecified fetus ([facility]) Gestational hypertension, third trimester ([facility])- Primary Insulin controlled gestational diabetes mellitus (GDM) in third trimester ([facility]) Depression affecting in third trimester, antepartum ([facility]) 30 weeks gestation of ([facility]) Polyhydramnios in third trimester complication, single or unspecified fetus ([facility]) History of HELLP syndrome, currently ([facility]) with other poor obstetric history History of loop electrosurgical excision procedure (LEEP) of cervix affecting in second trimester headache in third trimester ([facility]) Insulin controlled gestational diabetes mellitus (GDM) in second trimester ([facility]) Encounter for visit- Primary History of gestational diabetes Personal history of other genital system and obstetric disorders Counseling for initiation of control method History of pre-eclampsia Bilateral lower extremity edema documented in this encounter [facility] Work Phone: Evaluation note* Diagnosis 26 weeks gestation of ([facility])- Primary Insulin controlled gestational diabetes mellitus (GDM) in second trimester ([facility]) Gestational hypertension, second trimester ([facility]) Hyperglycemia in ([facility]) Crohn's disease with complication, unspecified gastrointestinal tract location Depression affecting in second trimester, antepartum ([facility]) Anxiety during in second trimester, antepartum headache in second trimester ([facility])- Primary Gestational hypertension, second trimester ([facility]) Insulin controlled gestational diabetes mellitus (GDM) in second trimester ([facility]) 27 weeks gestation of ([facility]) Gastroesophageal reflux disease without esophagitis Esophageal reflux Crohn's disease with complication, unspecified gastrointestinal tract location Gestational hypertension, third trimester ([facility])- Primary Insulin controlled gestational diabetes mellitus (GDM) in third trimester ([facility]) 29 weeks gestation of ([facility]) Depression affecting in second trimester, antepartum ([facility]) headache in third trimester ([facility]) Polyhydramnios in third trimester complication, single or unspecified fetus ([facility]) Gestational hypertension, third trimester ([facility])- Primary Insulin controlled gestational diabetes mellitus (GDM) in third trimester ([facility]) Depression affecting in third trimester, antepartum ([facility]) 30 weeks gestation of ([facility]) Polyhydramnios in third trimester complication, single or unspecified fetus ([facility]) History of HELLP syndrome, currently ([facility]) with other poor obstetric history History of loop electrosurgical excision procedure (LEEP) of cervix affecting in second trimester headache in third trimester ([facility]) Insulin controlled gestational diabetes mellitus (GDM) in second trimester ([facility]) Encounter for visit- Primary History of gestational diabetes Personal history of other genital system and obstetric disorders Counseling for initiation of control method History of pre-eclampsia Bilateral lower extremity edema Type 2 diabetes mellitus without complication, with long-term current use of insulin- Primary Benign essential HTN Other insomnia Healthcare maintenance Hypomagnesemia Disorders of magnesium metabolism documented in this encounter [facility] Work Phone: Hospital Discharge instructions Additional Instructions CT scan negative. Labs are all stable. Hemoglobin 12.6. Monitor symptoms. Follow-up with GI as an outpatient. Return if any worsening symptoms.[facility] Work Phone: Hospital Discharge instructions* Attachments The following attachments cannot be sent through Care Everywhere. * Managing acute pain at home ([place]) * Deciding to breastfeed ([place]) * Gestational diabetes ([place]) [facility]* Attachments The following attachments cannot be sent through Care Everywhere. * Managing acute pain at home ([place]) * Deciding to breastfeed ([place]) * Gestational diabetes ([place]) [facility]* Attachments The following attachments cannot be sent through Care Everywhere. * Managing acute pain at home ([place]) * Deciding to breastfeed ([place]) * Gestational diabetes ([place]) [facility] Discharge instructions* Attachments The following attachments cannot be sent through Care Everywhere. * Managing acute pain at home ([place]) * Deciding to breastfeed ([place]) * Gestational diabetes ([place]) [facility] Discharge instructions* Attachments The following attachments cannot be sent through Care Everywhere. * Managing acute pain at home ([place]) * Deciding to breastfeed ([place]) * Gestational diabetes ([place]) [facility]: [facility] Discharge instructions* Attachments The following attachments cannot be sent through Care Everywhere. * Managing acute pain at home ([place]) * Deciding to breastfeed ([place]) * Gestational diabetes ([place]) [facility]: [facility] Discharge instructions* Attachments The following attachments cannot be sent through Care Everywhere. * Managing acute pain at home ([place]) * Deciding to breastfeed ([place]) * Gestational diabetes ([place]) [facility] Discharge [facility]* Attachments The following attachments cannot be sent through Care Everywhere. * Managing acute pain at home ([place]) * Deciding to breastfeed ([place]) * Gestational diabetes ([place]) [facility]: Reason for visit Narrative* Imaging (Routine) - Pending Review Specialty Diagnoses / Procedures Referred By Lucioac t Referred To Contact Radiology Diagnoses Encounter for follow-up ultrasound of anatomy Gestational diabetes requiring insulin ([facility]HCC) AMA (advanced maternal age) multigravida 35+ ([facility]HS-HCC) Obesity affecting ([facility]) Procedures US OB follow UP transabdominal approach [place] biophysical [place] [address] [place] [address] Phone: tel: fax: Referral ID Status Reason Start Date Expiration Date Visits Requested Visits Authorized [id number] Pending Review Perform Procedure 12/25/2024 12/25/2025 1 1 [facility] Work Phone: Rekqpo for visit Narrative* Imaging (Routine) - Pending Review Specialty Diagnoses / Procedures Referred By Britta barlow Referred To Contact Radiology Diagnoses Gestational hypertension ([facility]HS-HCC) Obesity affecting ([facility]) Gestational diabetes mellitus (GDM) AMA (advanced maternal age) multigravida 35+ ([facility]HS-HCC) Procedures US OB limited 1+ fetuses [place] [address] [place] [address] Phone: tel: fax: Referral ID Status Reason Start Date Expiration Date Visits Requested Visits Authorized [id number] Pending Review Perform Procedure 12/23/2024 12/23/2025 1 1 [facility] Work Phone: Resiqn for visit Narrative* Imaging (Routine) - Pending Review Specialty Diagnoses / Procedures Referred By Contac t Referred To Contact Radiology Diagnoses Obesity affecting in third trimester ([facility]) Gestational diabetes mellitus (GDM) requiring insulin ([facility]) Gestational hypertension w/o significant proteinuria in 3rd trimester ([facility]) Procedures US OB follow UP transabdominal approach US biophysical [place] [address] [place] [address] Phone: tel: fax: Referral ID Status Reason Start Date Expiration Date Visits Requested Visits Authorized [id number] Pending Review Perform Procedure 01/15/2025 01/15/2026 1 1 [facility] Work Phone: Reltik for visit Narrative* Imaging (Routine) - Pending Review Specialty Diagnoses / Procedures Referred By Contac t Referred To Contact Radiology Diagnoses Insulin controlled gestational diabetes mellitus (GDM) in third trimester ([facility]) Gestational hypertension w/o significant proteinuria in 3rd trimester ([facility]) Procedures US OB limited 1+ fetuses US biophysical profile wo non stress testing Jose uGadalupe Gupta MD [address] [facility] [employer] [place] [id number] Phone: tel: fax: Referral ID Status Reason Start Date Expiration Date Visits Requested Visits Authorized [id number] Pending Review Perform Procedure 01/09/2025 01/09/2026 1 1 [facility] Work Phone: reason for visit Narrative* Imaging (Routine) - Pending Review Specialty Diagnoses / Procedures Referred By Britta t Referred To Contact Radiology Diagnoses Gestational hypertension, second trimester ([facility]) Insulin controlled gestational diabetes mellitus (GDM) in third trimester ([facility]) Procedures US OB limited 1+ fetuses US biophysical profile wo non stress testing Jose Guadalupe Gupta MD [address] [facility] [place] [address] Phone: tel: fax: Referral ID Status Reason Start Date Expiration Date Visits Requested Visits Authorized [id number] Pending Review Perform Procedure 01/09/2025 01/09/2026 1 1 [facility] Work Phone: Reason for visit Narrative* Imaging (Routine) - Pending Review Specialty Diagnoses / Procedures Referred By Britta t Referred To Contact Radiology Diagnoses Insulin controlled gestational diabetes mellitus (GDM) in third trimester ([facility]) Gestational hypertension w/o significant proteinuria in 3rd trimester ([facility]) Procedures US OB follow UP transabdominal approach US biophysical profile wo non stress testing Jose Guadalupe Gupta MD [address] [place] [address] Phone: tel: fax: Referral ID Status Reason Start Date Expiration Date Visits Requested Visits Authorized [id number] Pending Review Perform Procedure 01/09/2025 01/09/2026 1 1 [facility] Work Phone: Summary Purpose Family History [...] Will No August 18 4:21pm Power of Scraper Hand No August 18, 2022 4:21pm Advance Directive Response Recorded Date/ Time Living Will No Ty 22nd, 2 022 10:59am Power of Scraper Hand No October 26, 2022 10:59am Advance Directive Response Recorded Date/ Time Living Will No December 14 9:19pm Power of Scraper Hand No December 14, 2022 9:19pm Advance Directive Response Recorded Date/ Time Living Will No January 21, 2023 4:03pm Power of Scraper Hand No January 21 4:03pm Advance Directive Response Recorded Date/ Time Living Will No June 05, 2023 5:42am Power of Scraper Hand No June 05 5:42am Advance Directive Response Recorded Date/ Time Living Will No October 25, 023 4:32pm Power of Scraper Hand No October 25, 2023 4:32pm Advance Directive Response Recorded Date/ Time Living Will No November 17 2:59am Power of Scraper Hand No November 17, 2023 2:59am Advance Directive Response Recorded Date/ Time Living Will No December 05 7:53am Power of Scraper Hand No December 05, 2023 7:53am Advance Directive Response Recorded Date/ Time Living Will No February 22, 2024 3:50pm Power of Scraper Hand No February 21 3:50pm Date Activated Date [...] original. DISCHARGE SUMMARY Patient: Dayna Steward Account: [id number] Admitted: 09/03/2018 Discharge Date/Time: No discharge date for patient encounter. Clinical [facility] [place] Dayna Steward Admitted: 09/03/2018 Discharge [...] Physician(s) Follow Up: Raghu Lindsey MD [address] [facility] [address] [address] [address] [place] [facility] [place] [address] Follow up You have been scheduled to followup with LILI Barroso at our [facility] office to discuss UTI prevention for 10/02/18 at 1:45pm. Arrive at 1:15pm. Please bring insurance card and photo ID. Freddie Tinoco PA-C [id number] [place] [id number] Schedule an appointment as soon as possible for a visit in 1 week(s) [facility] [address] [facility] [address] Follow up call with questions related [...] NOTE Patient Name: Dayna Tinsley MR #: [id number] Assessment and Plan: 1. Pyelonephritis - E [...] capsule 300 mg 300 mg Oral Q12H [facility] Arianne Vargas MD dronabinol (MARINOL) capsule 5 [...] solution 3 mL 3 mL Inhalation Q6H [facility] Jairo Soria MD 3 mL at 09/08/18 0816 naloxone (NARCAN) injection 0.1 mg 0.1 mg Intravenous PRN Chase Parham MD naloxone (NARCAN) injection 0.4 mg 0.4 mg Intravenous PRN Chase Parham MD prochlorperazine (COMPAZINE) injection 5 mg 5 mg Intravenous Q4H Felecia Arteaga, LILI 5 mg at 09/08/18 0927 QUEtiapine (SEROQUEL) [...] NOTE Patient Name: Dayna Tinsley MR #: [id number] Assessment and Plan: 1. Pyelonephritis - E [...] 650 mg 650 mg Oral Q6H PRN rAianne Vargas MD 650 mg at 09/07/18 0805 ARIPiprazole (ABILIFY) tablet 5 mg 5 mg Oral Daily Chase Parham MD 5 mg at 09/07/18 0932 benzonatate (TESSALON) capsule 100 mg 100 mg Oral TID PRN Arianne Vargas MD 100 mg at 09/06/18 0841 ceFAZolin (ANCEF) IVPB 2 g (premix) 2,000 mg Intravenous Q8H Luisa Vasques [facility],PharmD Stopped at 09/07/18 0631 dronabinol (MARINOL) capsule [...] solution 3 mL 3 mL Inhalation Q6H [facility] Jairo Soria MD 3 mL at 09/07/18 0325 ketorolac (TORADOL) injection 30 mg 30 mg Intravenous Q6H PRN Arianne Vargas MD 30 mg at 09/06/18 2331 naloxone (NARCAN) injection 0.1 mg 0.1 mg Intravenous PRN Chase Parham MD naloxone (NARCAN) injection 0.4 mg 0.4 mg Intravenous PRN Chase Parham MD prochlorperazine (COMPAZINE) injection 5 mg 5 mg Intravenous Q4H Felecia Arteaga, FIELD OPERATIONS MANAGER 5 mg at 09/07/18 0932 QUEtiapine [...] NOTE Patient Name: Dayna Tinsley MR #: [id number] Assessment/Plan: Acute pyelonephritis Assessment & Plan B/L pyelo with no evidence of obstruction or stones on CT Afeb last 24 hours. No UCx results available. No urinary complaints. No surgical intervention required. We will sign off F/u on at our [facility] office to discuss UTI prevention for 10/02/18 [...] about her keiko and being brought up Rastaf[place]. She shared some challenging and difficult circumstances in her immediate family that has led to loss and tragedy. Pt. Visit interrupted by vocera call and I stated I would return to the pt's room shortly RECOMMENDATION: Harry Wynne Staff boat operator [phone] 09/06/18 1800 Clinical Encounter Type Visit Type Non Crisis Non Crisis Visit Rounding Visited With Patient Visit Length (minutes) 16-30 Referral From Patient Patient Spiritual Assessment Spiritual Assessed Yes Orthodoxy Affiliation Arianne Bates MD - 09/06/2018 3:37 [...] NOTE Patient Name: Dayna Tinsley MR #: [id number] Assessment and Plan: 1. Pyelonephritis - E [...] (premix) 2,000 mg Intravenous Q8H Luisa Vasques [facility],PharmD Stopped at 09/06/18 0552 dronabinol (MARINOL) capsule [...] mg 5 mg Intravenous Q4H Felecia Arteaga FIELD OPERATIONS MANAGER 5 mg at 09/06/18 1050 QUEtiapine (SEROQUEL) tablet 200 mg 200 mg Oral BID Chase Parham MD 200 mg at 09/06/18 0841 scopolamine (TRANSDERM-SCOP) 1 mg over 3 days patch 1 patch 1 patch Transdermal Once Felecia Pereyra CNP 1 patch at 09/03/182005 sodium chloride [...] Alcides Montgomery MD; cell ; pager * Alcides Montgomery MD - 09/05/2018 12:05 PM EDT Formatting of this note may be different from the original. INFECTIOUS DISEASES DAILY PROGRESS NOTE Patient Name: Dayna Tinsley MR #: [id number] Assessment and Plan: 1. Pyelonephritis - E [...] (premix) 2,000 mg Intravenous Q8H Luisa Vasques [facility],PharmD 200 mL/hr at 09/05/18 0520 2,000 mg [...] mg 5 mg Intravenous Q4H Felecia Arteaga, FIELD OPERATIONS MANAGER 5 mg at 09/05/18 1059 QUEtiapine (SEROQUEL) tablet 200 mg 200 mg Oral BID Chase Parham MD 200 mg at 09/05/18 0809 scopolamine (TRANSDERM-SCOP) 1 mg over 3 days patch 1 patch 1 patch Transdermal Once Felecia Erikaynes [facility] 1 patch at 09/03/182005 sodium chloride (PF) [...] facilitated conversation with pt who identifies as Mandaen and finds strength/meaning/comfort in their jewish tradition. Pt expressed her exhaustion and I left pt to rest. Educated pt on role and availability of pastoral care. No further pastoral care requested. Recommend- Visit w pt and family PRN Rev. Roderick Graham MDiv Resident Equipment Planner, Pastoral Care [facility] * Harriet Bustamante, RN - 09/04/2018 8:32 [...] pyelonephritis. ID c/s pending. Urology c/s pending. CC will follow for possibledischarge needs. in this [...] section and content) DATE CREATED AUTHOR 04/30/2018 [facility] CREATED AUTHOR AUTHOR'S ORGANIZ ATION 05/01/2018 [facility] DATE CREATED AUTHOR AUTHOR'S ORGANIZ ATION 08/24/2018 [facility] DATE CREATED AUTHOR AUTHOR'S ORGANIZ ATION 09/06/2018 [facility] DATE CREATED AUTHOR AUTHOR'S ORGANIZ ATION 10/08/2018 [facility] DATE CREATED AUTHOR AUTHOR'S ORGANIZ ATION 10/12/2018 [facility] DATE CREATED AUTHOR AUTHOR'S ORGANIZ ATION 10/13/2018 [facility] DATE CREATED AUTHOR AUTHOR'S ORGANIZ ATION 02/11/2019 [facility] DATE CREATED AUTHOR AUTHOR'S ORGANIZ ATION 04/09/2019 [facility] DATE CREATED AUTHOR AUTHOR'S ORGANIZ ATION 04/11/2019 [facility] DATE CREATED AUTHOR AUTHOR'S ORGANIZ ATION 04/13/2019 [facility] DATE CREATED AUTHOR AUTHOR'S ORGANIZ ATION 10/24/2021 [facility] DATE CREATED AUTHOR AUTHOR'S ORGANIZ ATION [facility]20[facility] DATE CREATED AUTHOR AUTHOR'S ORGANIZ ATION 03/15/2023 [facility] DATE CREATED AUTHOR AUTHOR'S ORGANIZ ATION 06/07/2023 [facility] DATE CREATED AUTHOR AUTHOR'S ORGANIZ ATION 11/19/2024 [facility] DATE CREATED AUTHOR AUTHOR'S ORGANIZ ATION 12/11/2024 [facility] DATE CREATED AUTHOR AUTHOR'S ORGANIZ ATION 02/26/[address] [facility] DATE CREATED AUTHOR AUTHOR'S ORGANIZ ATION 03/11/2025 [facility] DATE CREATED AUTHOR AUTHOR'S ORGANIZ ATION 05/15/2025 [facility] DATE CREATED AUTHOR AUTHOR'S ORGANIZ ATION 06/19/2025 [facility] DATE CREATED AUTHOR AUTHOR'S ORGANIZ ATION 06/21/2025 [facility] Reason for Visit (unrecogniz ed section and content) Reason Comments Headache Specialty Diagnoses / Procedures Referred By Contac t Referred To Contact Diagnoses Hyperglycemia in ([facility]) Procedures Celena Carty, DEBRANDER-FIELD OPERATIONS MANAGER [address] [place] [address] Phone: tel: fax: [facility] [address] [place] [address] Phone: tel: Referral ID Status Reason Start Date Expiration Date Visits Re quested Visits Authorized [id number] 1 1 Reason Comments Nausea Emesis Abdominal [...] risk she can be referred back to [facility]. Procedures Referral to OBGYN office. [address] [address] Phone: tel: [facility] - [address] [place] [address] Phone: tel: fax: Referral ID Status Reason Start Date Expiration Date Visits Re quested Visits Authorized [id number] Closed 11/17/2024 05/16/2025 1 1 Reason Comments Hyperglycemia Reason Comments Hypertension Headache Nausea/Vomiting In Specialty Diagnoses / Procedures Referred By Contac t Referred To Contact Diagnoses Hyperglycemia in ([facility]) Procedures Celena Carty, DEBRANDER-FIELD OPERATIONS MANAGER [address] [place] [address] Phone: tel: fax: [place] [address] [place] [address] Phone: tel: Reason Comments Contractions Hypertension Specialty Diagnoses / Procedures Referred By Contac t Referred To Contact Diagnoses Severe preeclampsia, third trimester ([facility]) Procedures Dhara Harrington, DEBRANDER-FIELD OPERATIONS MANAGER [id number] On License Of [facility] Department [place] [address] Phone: tel: fax: [facility] 2 Obstetrics and Gynecology [address] [place] [address] Phone: tel: Referral ID Status Reason Start Date Expiration Date Visits Re quested Visits Authorized [id number] 1 1 Reason Comments New Patient Visit NEW PT WANTING BACK ON OZEMPIC Reason Comments Follow-up Patient Saathoff is here [facility] 1. Patient is here for a PPV , No pain , No falls . BS 123 BP 128/77 HR 110 Reason Comments Follow-up 6 week fu (ozempic) having trouble sleeping Chase Parham MD - 09/03/2018 12:58 PM EDT H&P Notes (unrecognized sect ion and content) Formatting of this note may be different from the original. [facility] History and Physical Patient Name: Dayna Tinsley : 1990 MR #: [id number] Admit Date: 10291112 Physicians: Freddie Tinoco PA-C [...] Dayna Tinsley Admit Date: 10291112 MR #: [id number] : 1990 Assessment and Plan: 1. Pyelonephritis - E coli from urine from 08/31. Ancef reasonable. May take a few days to defervesce. 2. Crohn's - Per primary. 3. RA - Per primary. Disposition Comments: Monitor on Ancef. Physicians: Freddie Tinoco PA-C (Family); [facility] Chief Complaint/Reason for Visit: sepsis, pyelonephritis, recent [...] 0.25 mg Intravenous Q4H PRN Felecia Arteaga, FIELD OPERATIONS MANAGER 0.25 mg at 09/04/18 0612 ketorolac (TORADOL) [...] injection 0.4 mg 0.4 mg Intravenous PRN Cahse Parham MD prochlorperazine (COMPAZINE) injection 5 mg 5 mg Intravenous Q4H Felecia Arteaga, FIELD OPERATIONS MANAGER 5 mg at 09/04/18 0617 QUEtiapine (SEROQUEL) tablet 200 mg 200 mg Oral BID Chase Parham MD 200 mg at 09/03/182252 scopolamine (TRANSDERM-SCOP) 1 mg over 3 days patch 1 patch 1 patch Transdermal Once Felecia Heaton [place], LILI 1 patch at 09/03/182005 sodium chloride (PF) [...] Dayna Tinsley Admit Date: 10291112 MR #: [id number] : 1990 Physicians: Freddie Tinoco PA-C (Family); [...] Dr. Parham of the [facility] service to evaluate the above issue. History: [...] last 7 days Lab Units 09/04/1854309/03/18185309/03/18 1016 WBC K/mcL 5.51 -- 12.76* HGB [...] in this encounter Quick Note - Bhakti Allison RN - 09/08/2018 4:10 PM [facility] Earl Cruz, TARA - 09/06/2018 6:22 AM [facility] - Becky Vuong RN - 09/06/2018 [...] will sign off F/u on at our [facility] office to discuss UTI prevention for 10/02/18 at 1:45pm. Arrive at 1:15pm. Details on AVS Patient had scored MEWS of 5. Have notified Rapid Response Nurse. [facility] director economic is aware of the MEWS score. Patient is here for Sepsis. [facility] has placed an order for PRN Tylenol. Tylenol have been given. Will monitor patient and take vital again in one hour. [facility] NOTE Called by pt's nurse [...] of greater than 102. [facility] physician and Rapid response nurse notified. See orders for physician recommendations. Will continue to monitor. Formatting of this note may be different from the original. ED PROVIDER NOTE [facility] EMERGENCY DEPARTMENT NAME: Dayna Tinsley AGE: 27 y.o. : 1990 VISIT DATE: 09/03/2018 CSN: [id number] PCP: Freddie Tinoco PA-C Chief complaint: Right [...] Yellow Clarity, Urine Cloudy (A) Clear Specific [place] 1.015 1.005 - 1.025 pH, Urine 5.0 [...] w/Cardiac Monitoring [19] Admitting Physician: CHASE PARHAM [[id number]] Diagnosis: Acute pyelonephritis [286268] Attending Provider or Group: [facility] [[id number]] Expected Length of Stay in Days: 3 [...] arrival: Comments: Medic 8in this encounter Narrative: 906--[facility] who [facility] this patient to [facility]. Patient with hx of Chrohn's who [...] Physician Member Role: ED Physician Address: Address: [address] [place] [address]- Care Teams (unrecognized sec tion and content) Team Status: Active Member Role Status Dates No Primary Care Physician Family Provider Active No Primary Care Physician Primary Care Provider Active Team Status: Inactive Member Role Status Dates No Primary Care Physician Primary Care Provider, Refer ring Provider Active Rodolfo GRULLON, PA Attending Provider Active Team Status: Inactive [...] No Primary Care Physician Family Provider Active [facility] Primary Care Provider A ctive Team Status: Inactive Member Role Status Dates [facility] Primary Care Provider A ctive Dr. Major Mejia DO Emergency Provider Active Team Status: Inactive Member Role Status Dates [facility] Primary Care Provider A ctive Dr. Joseph Delgado DO Attending Provider, Emergency P rovider Active Team Status: Inactive Member Role Status Dates [facility] Primary Care Provider A ctive Dr. Garrett Brooks DO Emergency Provider Active Team Status: Inactive Member Role Status [facility] Primary Care Provider A ctive Dr. Agustín Estrada MD Attending Provider, Emergency Pro vider Active Team Status: Inactive Member Role Status [facility] Primary Care Provider A ctive Dr. Garrett Brooks DO Attending Provider, Emergency Provider Active Team Status: Active Member Role Status No Primary Care Physician Family Provider Active Fahad Champagne VSC, PLASTERING SUPERVISOR-C Primary Care Provider Active Team Status: Inactive Member Role Status Dates Dr. Jose Wynn DO Emergency Provider Active Fahad Champagne VSC, PLASTERING SUPERVISOR-C Primary Care Provider Active Team Status: Inactive Member Role Status Dates Dr. Jose Wynn DO Attending Provider, Emergency Pro vider Active Fahad Champagne VSC, PLASTERING SUPERVISOR-C Primary Care Provider Active Team Status: Inactive Member Role Status Dates Fahad Champagne VSC, PLASTERING SUPERVISOR-C Primary Care Provider Active Ed Physician Provider Emergency Provider Active Team Status: Inactive Member Role Status Dates Fahad Champagne VSC, PLASTERING 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 Jose Wynn DO Emergency Provider Active Team Status: Inactive Member Role Status Dates Fahad Champagne VSC, PLASTERING 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 Jose Wynn DO Attending Provider, Emergency Pro vider Active Team Status: Inactive Member Role Status Dates Fahad Champagne VSC, PLASTERING SUPERVISOR-C Primary Care Provider Active Ed Physician Provider Attending Provider, Emergency Pr ovider Active Team Status: Inactive Member Role Status Dates Fahad Champagne VSC, PLASTERING SUPERVISOR-C Primary Care Provider Active Nito Nur MD Emergency Provider Active Team Status: Inactive Member Role Status Dates Fahad Champagne VSC, PLASTERING SUPERVISOR-C Primary Care Provider Active Nito Nur MD Attending Provider, Emergency Provid er Active Team Status: Inactive Member Role Status Dates Fahad Champagne VS, PLASTERING 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 Jagjit Ortega MD Attending Provider, Suzy loco Active Margin Trimmer Relationship Specialty Start Date End Date Generic Provider, [place] [address] PCP - General Public Address Technician 01/20/25 Margin Trimmer Relationship Specialty Start Date End Date Generic Provider, [place] [address] PCP - General Public Address Technician 01/20/25 Margin Trimmer Relationship Specialty Start Date End Date Generic Provider, [place] [address] PCP - General Public Address Technician 01/20/25 Margin Trimmer Relationship Specialty Start Date End Date Generic Provider, [place] [address] PCP - General Public Address Technician 01/20/25 [place] [address] [place] [address] Animal Control Officer Maternal and Medicine 02/15/25 Margin Trimmer Relationship Specialty Start Date End Date Generic Provider, [place] [address] PCP - General Public Address Technician 01/20/25 [place] [address] [place] [address] Animal Control Officer Maternal and Medicine 02/15/25 Margin Trimmer Relationship Specialty Start Date End Date Generic Provider, [place] [address] PCP - General Public Address Technician 01/20/25 [place] [address] [place] [address] Animal Control Officer Maternal and Medicine 02/15/25 Margin Trimmer Relationship Specialty Start Date End Date Generic Provider, [place] [address] PCP - General Public Address Technician 01/20/25 [place] [address] [place] [address] Animal Control Officer Maternal and Medicine 02/15/25 Margin Trimmer Relationship Specialty Start Date End Date Zoë Santana MD [address] [place] [address] PCP - General Internal Medicine 03/16/25 [place] [address] [place] [address] Animal Control Officer Maternal and Medicine 02/15/25 Scheduled Active and Recently Administ ered Medications (unrecognized section and content) Medication Order 12/23/2024 12/24/2024 12/25/2024 aspirin EC tablet 81 mg 81 mg, oral, Daily, First dose on Sun12/23/24 at 1915, Do not crush, chew, or split. 1918 (Canceled Entry - Provider: Gregory Harrell [...] meal times) 0952 (Given - Provider: Lexis Quintaan RN)1226 (Given - Provider: Lexis Quintana RN)1600 [...] Provider: Ascencion Ramirez, PharmD)2300 (Due - Provider: Ascecnion Ramirez, PharmD) docusate sodium (Colace) capsule 100 mg 100 mg, oral, 2 times daily, First dose on Sun02/13/25 at 1245 1446 (Not Given - Provider: Afshan Chino RN - Reason: Patient not available)5 (Not Given - Provider: Lily Babcock RN [...] - Provider: Myriam Damian RN - Comment: back)222 (Due: Medication Removed - Provider: Myriam Damian [...] Orders)1857 (MAR Unhold - Provider: Suzette Galindo MD) [...] oral, Daily before breakfast, First dose on 02/09/25 at 0700, Do not crush, chew, or split. 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 [employer] [facility]. provides no warranty or guarantee of the accuracy or completeness of information in this document.
[2025-06-22 03:38] LABS: Hematocrit 40.0 % (37-47); Hemoglobin 12.5 g/dL (12.0-15.0); Immature Granulocytes Count 0.040 X10^3/uL (0.0-0.0); Mean Corp Hgb Conc 31.3 g/dL (32-36); Mean Corpuscular Volume 82.0 fL (81-99); Mean Platelet Vol. 10.3 fl (6.2-12.0); NRBC Flagged by Analyzer 0 % (0-5); Platelet Count 307 K/mm3 (150-450); RBC Distribution Width CV 15.2 % (11.6-14.6); RBC Distribution Width SD 45.5 fl (35.1-43.9); Red Blood Count 4.88 M/mm3 (4.2-5.4); White Blood Count 11.0 K/mm3 (4.4-11.0)
[2025-06-22 03:43] LABS: Internal QC Validated? YES +Cl - CLEAR BKGD; Pregnancy, Serum, hCG Quali. NEGATIVE Negative; Record Kit Lot#, Serum Preg. 0000962302
[2025-06-22 03:56] LABS: Lipase 25 U/L (13-75)
[2025-06-22 03:59] LABS: AST(SGOT) 32 U/L (<=31); Alanine Aminotransfer ALT/SGPT 23 U/L (<=34); Albumin, Serum 4.1 g/dL (3.5-5.0); Alkaline Phosphatase 87 U/L (35-104); Anion Gap 14 (5-15); BUN 13 mg/dL (4-19); BUN/Creat Ratio 14.9 RATIO (10-20); Calcium,Total 9.2 mg/dL (7.6-11.0); Carbon Dioxide 17.4 mmol/L (21.0-32.0); Chloride 104 mmol/L (98-108); Estimated Creatinine Clearance 127.91 ml/min (50-250); Globulin 3.4 g/dL (2.2-4.2); Glucose 90 mg/dL (70-99); Potassium 3.7 mmol/L (3.3-5.1)
[2025-06-22] MEDS: Ketorolac 30 MG/ML Syringe IV (04:05)
[2025-06-22] MEDS: 0.9% Normal Saline (1000mL) 1,000 ML 999 ML IV (04:05)
[2025-06-22 04:54] LABS: Mucous, Urine 0 SEEN /hpf (<or=2+)
[2025-06-22 04:55] LABS: Color, Urine Yellow (Yellow); Glucose, Dipstick Normal (Normal); Ketone-Dipstick Negative (Negative); Leukocyte Esterase-Dipstick 100 /ul (Negative); Nitrite-Dipstick Negative (Negative); Occult Blood-Urine 150 /ul (Negative); Protein-Dipstick 30 mg/dl (Negative); Specific Gravity, Urine 1.025 (1.002-1.030); Urine Bilirubin Dipstick Negative (Negative)
[2025-06-22 05:05] LABS: Red Blood Cells-Urine 0-5 SEEN /hpf (0-5); Squamous Epithelial Cells - UA 10-25 SEEN /hpf (5-10)
[2025-06-22 05:06] LABS: Transitional Epithelial - Ur 0-5 SEEN /hpf (0-5)
[2025-06-22 05:07] VITALS: BP 122/62; PULSE 74; RESP 18; O2SAT 98
[2025-06-22 05:39] VITALS: BP 104/60; PULSE 69; RESP 17; TEMP 36.6; O2SAT 99
== END 2025-06-22 05:44 | disposition home or self-care (01) ==
PROVIDERS: Emergency Provider Emergency Medicine; PCP Internal Medicine; Visit Provider Emergency Medicine
DX: R10.11 Right upper quadrant pain (principal); K50.90 Crohn's disease, unspecified, without complications; E11.9 Type 2 diabetes mellitus without complications; Z79.4 Long term (current) use of insulin; R10.31 Right lower quadrant pain; F17.200 Nicotine dependence, unspecified, uncomplicated; Z90.49 Acquired absence of other specified parts of digestive tract; Z79.899 Other long term (current) drug therapy
CPT/HCPCS: 80053; 81001; 83690; 84703; 85025; 96361; 96374; 96375; 99282; A4216; J2405

== ENCOUNTER 2025-10-16 17:37 | Emergency (ER) | payer BC, MEDICAID, SELFPAY ==
[2025-10-16] VITALS (9 sets, daily range): BP systolic 97–149; BP diastolic 63–79; PULSE 92–116; RESP 16–18; TEMP 36.5; O2SAT 97–100; BMI 53.9
--- NOTE | 2025-10-16 19:21 | ED.VIS.GI ---
HPI HPI - GI History of Present Illness Chief Complaint: Abd Pain Informant: patient Abdominal Pain/Flank Pain Onset: Days (3) Context: Gradual Onset Timing: Continuous Quality: Dull and - (Pressure) Location: RUQ Worsened by: Food Relieved by: Nothing Nausea/Vomiting/Emesis GI Symptom: Positive for Nausea and Vomiting Diarrhea/Melena/Hematochezia GI Symptom: Negative for Diarrhea, Melena or Hematochezia Associated Symptoms Associated Symptoms: Negative for Dysuria, Frequency or Hematuria Narrative Narrative: Patient presents with right upper quadrant abdominal pain that has been getting worse over the past 3 days. Patient states it is gradually getting worse. Patient states it is constant. Patient describes it as dull and pressure. Patient states his worse after eating. Patient states nothing makes it better. Patient admits to some nausea and vomiting. Patient denies any hematemesis or coffee-ground emesis. Patient states her emesis was just undigested stomach contents. Patient denies any diarrhea, melena, or hematochezia. Patient denies any dysuria, frequency, or hematuria. PFSH PFSH Medical History Anxiety Depression Type 2 diabetes mellitus Hx of mastitis Congenital heart defect Endometriosis Crohn's disease Home Medications ?Medication ?Instructions ?Recorded ?Last Taken ?Type acetaminophen 500 mg capsule 500 mg PO Q6H PRN pain 04/12/24 04/12/24 History loperamide 2 mg capsule 2 mg PO PRN 04/12/24 Unknown History flash glucose scanning reader #1 ea 12/19/24 Unknown Rx (FreeStyle Javon 2 Harrah) flash glucose sensor (FreeStyle #1 ea 12/19/24 Unknown Rx Javon 2 Sensor kit) blood sugar diagnostic (True #100 ea 12/22/24 Unknown Rx Metrix Glucose Test Strip) blood sugar diagnostic (True #100 ea 12/22/24 Unknown Rx Metrix Glucose Test Strip) lancets #200 ea 12/22/24 Unknown Rx lancets 30 gauge (Droplet Lancets) #200 ea 12/22/24 Unknown Rx hydroxyzine HCl 50 mg tablet 50 mg PO BID PRN anxiety #180 tabs 04/30/25 Unknown Rx promethazine 25 mg tablet 25 mg PO TID PRN nausea and 05/20/25 Unknown Rx vomiting #21 tabs famotidine 20 mg tablet 20 mg PO BID #28 TABLETS 06/04/25 Unknown Rx hyoscyamine sulfate 0.125 mg 0.125 mg PO Q8H PRN dyspepsia #20 06/04/25 Unknown Rx tablet (Levsin) tabs insulin glargine 100 unit/mL (3 40 unit subcut BID 06/04/25 Unknown History mL) subcutaneous pen (Lantus Solostar U-100 Insulin) insulin glargine-yfgn 100 unit/mL 40 unit subcut BID 06/04/25 Unknown History (3 mL) subcutaneous pen insulin lispro 100 unit/mL 15 unit subcut TID 06/04/25 Unknown History subcutaneous pen lisinopril 2.5 mg tablet 2.5 mg PO DAILY 06/04/25 Unknown History spironolactone 50 mg tablet 50 mg PO DAILY 06/04/25 Unknown History trazodone 50 mg tablet 50 mg PO QHS 06/04/25 Unknown History semaglutide 0.25 mg or 0.5 mg (2 1 mg subcut QWEEK 07/03/25 Unknown History mg/3 mL) subcutaneous pen injector (Ozempic) doxepin 150 mg capsule 150 mg PO DAILY #90 caps 09/10/25 Unknown Rx prazosin 2 mg capsule 2 mg PO QHS #30 caps 09/10/25 Unknown Rx diazepam 5 mg tablet 5 mg PO TID PRN ptsd #30 tabs 10/09/25 Unknown Rx lamotrigine 25 mg tablet 25 mg PO DAILY #46 tabs 10/09/25 Unknown Rx modafinil 100 mg tablet 100 mg PO QAM #30 tabs 10/09/25 Unknown Rx modafinil 200 mg tablet 200 mg PO DAILY #30 tabs 10/09/25 Unknown Rx cephalexin 500 mg capsule 500 mg PO Q6 #12 CAPSULES 10/16/25 Unknown Rx hydrocodone-acetaminophen 5-325mg 1 tab PO Q6H PRN PRN Pain 3 days 10/16/25 Unknown Rx 5mg-325mg #10 TABLETS Allergy/AdvReac Type Severity Reaction Status Date / Time methylprednisolone (From Allergy Severe Anaphylaxis Verified 10/16/25 17:39 Solu-Medrol) midazolam (From Versed) Allergy Unknown Other Verified 10/16/25 17:39 benzocaine (From Cetacaine) Allergy Anaphylaxis Verified 10/16/25 17:39 butamben (From Cetacaine) Allergy Anaphylaxis Verified 10/16/25 17:39 methylprednisolone sodium Allergy Anaphylaxis Verified 10/16/25 17:39 succinate (From Solu-Medrol) metoclopramide (From Reglan) Allergy Other Verified 10/16/25 17:39 sertraline Allergy Other Verified 10/16/25 17:39 tetracaine (From Cetacaine) Allergy Anaphylaxis Verified 10/16/25 17:39 midazolam HCl (From Versed) AdvReac Other Verified 10/16/25 17:39 Family History Grandmother Breast cancer, Onset Age: 37 Paternal Aunt Breast cancer, Onset Age: 36 Paternal Aunt Breast cancer Maternal Grandmother Breast cancer, Onset Age: 80 Maternal Surgical History Hx of myringotomy History of colon resection H/O dilation and curettage H/O resection of small bowel History of cholecystectomy Hx LEEP (loop electrosurgical excision procedure), cervix, Social History adopted: No 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al status: employed 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al exposures/hazards: Yes pets and animals: Yes pets and animals: dog(s) history of recent travel: Yes ([place], [place]) out of state: Yes out of country: No sexually active: Yes Smoking Status: Current every day smoker tobacco type: cigarettes quit status: considering quitting alcohol intake: never substance use type: does not use diet: other well-balanced diet: about half the time caffeine: Yes Type: carbonated beverages Number of servings: 2 eating out: 4 or more times/week during the past year weight has: decreased > 10 lbs what type of physical activity do you participate in: weight training frequency: 1-2 times per week duration: < 15 minutes/day keiko/caodaism: Muslim seatbelt use: always do you feel safe at home: Yes additional social history: FOB is Donor ROS ROS ED Constitutional Constitutional ED: Reports chills, fever(s) and subjective Eyes Eyes: Denies blurry vision or change in vision ENT ENT ED: Reports rhinorrhea; Denies sore throat Cardiovascular Cardiovascular: Denies chest pain or palpitations Respiratory/Chest Respiratory/Chest: Reports dyspnea; Denies cough Gastrointestinal Gastrointestinal: Reports abdominal pain, nausea and vomiting; Denies diarrhea or melena Genitourinary Genitourinary ED: Denies dysuria or hematuria Musculoskeletal Musculoskeletal: Denies back pain or neck pain Integumentary Denies abscess or rash Neurologic Neurologic: Reports headache(s); Denies weakness Allergic/Immunologic Allergic/Immunologic ED: Denies mouth swelling or urticaria EXAM Physical Exam Const Vital Signs: 10/16/25 17:38 10/16/25 19:50 10/16/25 20:34 Temperature 97.7 F L Temperature Source Oral Pulse Rate 116 H 103 H 92 Respiratory Rate 18 17 17 Blood Pressure 149/71 H 97/68 143/63 H Blood Pressure Mean 97 77 89 Pulse Ox 97 100 100 Oxygen Delivery Method Room Air Room Air 10/16/25 21:15 10/16/25 22:15 10/16/25 22:20 Temperature Temperature Source Pulse Rate 95 93 92 Respiratory Rate 16 Blood Pressure 97/79 144/69 H 144/69 H Blood Pressure Mean 85 94 94 Pulse Ox 98 100 100 Oxygen Delivery Method Room Air 10/16/25 22:30 Temperature Temperature Source Pulse Rate 92 Respiratory Rate 17 Blood Pressure 118/69 Blood Pressure Mean 85 Pulse Ox 98 Oxygen Delivery Method Positive well nourished and well developed Constitutional Narrative: BMI is 54.0. General Appearance ED: well developed and NAD HEENT Reports moist mucous membranes normocephalic and atraumatic Neck supple and no JVD Resp normal respiratory effort and clear to auscultation bilaterally Cardio regular rate and regular rhythm GI non-distended Palpation: soft and tender epigastric, RLQ, LUQ and RUQ; Negative for guarding or rebound tenderness present Extremity full ROM Neuro CN's II-XII intact bilaterally, moves all extremities and no sensory deficits noted Sensorium / Orientation: alert Motor Exam: strength 5/5 throughout Psych mental status grossly normal and thought process normal MDM MDM MDM Narrative Medical decision making narrative: Differential diagnosis includes gastritis, peptic ulcer disease, , pancreatitis, urinary tract infection, pyelonephritis, and anxiety. CBC will be obtained to assess for this and anemia. Comprehensive metabolic profile will be obtained to assess for hepatic function, renal function, and electrolyte abnormality. Lipase will be obtained to assess for pancreatitis. Urinalysis will be obtained to assess for urinary tract infection and hematuria. CT scan of the abdomen and pelvis will be obtained to assess for bowel obstruction, perforation, pyelonephritis, and ureteral calculus. Lab Data Attestation: I reviewed the patient's lab results. Lab results narrative: CBC was reviewed. There is a slight leukocytosis of 11.2. There is a mild anemia with a hemoglobin of 11.0 and hematocrit of 35.3. Comprehensive metabolic profile was reviewed. Glucose was slightly elevated at 130. Alkaline phosphatase was slightly elevated at 111. The remainder is within normal limits. Lipase was reviewed and was normal at 23. Serum hCG was reviewed and was negative. Urinalysis was reviewed. Leukocyte esterase was 500. There are 10-25 white blood cells and 1+ bacteria. Labs: Laboratory Results - last 24 hr 10/16/25 10/16/25 10/16/25 19:15 19:15 19:20 WBC Cancelled Corrected WBC Cancelled RBC Cancelled Hgb Cancelled Hct Cancelled MCV Cancelled MCH Cancelled MCHC Cancelled RDW Std Deviation Cancelled RDW Coeff of Silke Cancelled Plt Count Cancelled MPV Cancelled Immature Gran % (Auto) Cancelled Neut % (Auto) Cancelled Lymph % (Auto) Cancelled Gregg % (Auto) Cancelled Eos % (Auto) Cancelled Baso % (Auto) Cancelled Absolute Neuts (auto) Cancelled Absolute Lymphs (auto) Cancelled Total Counted Cancelled Neutrophils % (Manual) Cancelled Band Neutrophils % Cancelled Lymphocytes % (Manual) Cancelled Monocytes % (Manual) Cancelled Eosinophils % (Manual) Cancelled Basophils % (Manual) Cancelled Metamyelocytes % Cancelled Myelocytes % Cancelled Promyelocytes % Cancelled Blast Cells % Cancelled Plasma Cell % (Manual) Cancelled Other Cells % Cancelled Nucleated RBC % Cancelled Nucleated RBCs/100 WBC Cancelled Differential Comment Cancelled Diff Path Review Cancelled Hypersegmented Neuts Cancelled Atypical Lymphocytes Cancelled Reactive Lymphocytes Cancelled Smudge Cells Cancelled Toxic Granulation Cancelled Toxic Vacuolation Cancelled Dohle Bodies Cancelled Ayesha Rods Cancelled Platelet Estimate Cancelled Plt Morphology Comment Cancelled RBC Morphology Cancelled Cancelled Polychromasia Cancelled Hypochromasia Cancelled Basophilic Stippling Cancelled Anisocytosis Cancelled Microcytosis Cancelled Macrocytosis Cancelled Spherocytes Cancelled Sickle Cells Cancelled Target Cells Cancelled Tear Drop Cells Cancelled Ovalocytes Cancelled Stomatocytes Cancelled [place] Bodies Cancelled [place] Cells Cancelled Bite Cells Cancelled Crenated Cell Cancelled Acanthocytes (Spur) Cancelled Rouleaux Cancelled Schistocytes Cancelled Sodium 136 Potassium 3.7 Chloride 102 Carbon Dioxide 22.7 Anion Gap 12 BUN 7 Creatinine 0.85 Estim Creat Clear Calc 131.08 Est GFR (MDRD) Non-Af 92 BUN/Creatinine Ratio 8.0 L Glucose 130 H Calcium 9.4 Total Bilirubin 0.40 AST 17 ALT 11 Alkaline Phosphatase 111 H Total Protein 8.0 Albumin 4.1 Globulin 3.9 Albumin/Globulin Ratio 1.0 Lipase 23 Serum , Qual NEGATIVE Urine Color Yellow Urine Clarity Sl. Cloudy Urine pH 6.0 Ur Specific [place] 1.020 Urine Protein 30 H Urine Glucose (UA) Normal Urine Ketones Negative Urine Occult Blood Negative Urine Nitrite Negative Urine Bilirubin Negative Urine Urobilinogen Normal Ur Leukocyte Esterase 500 H Urine RBC 0-5 SEEN Urine WBC 10-25 SEEN Ur Squamous Epith Cells 0-5 SEEN Urine Bacteria 1+ Urine Mucus 0 SEEN 10/16/25 20:45 WBC 11.2 H Corrected WBC RBC 4.43 Hgb 11.0 L Hct 35.3 L MCV 79.7 L MCH 24.8 L MCHC 31.2 L RDW Std Deviation 40.7 RDW Coeff of Silke 14.1 Plt Count 274 MPV 10.0 Immature Gran % (Auto) 0.400 Neut % (Auto) 67.1 Lymph % (Auto) 26.0 Gregg % (Auto) 5.8 Eos % (Auto) 0.2 Baso % (Auto) 0.5 Absolute Neuts (auto) 7.5 Absolute Lymphs (auto) 2.91 Total Counted Neutrophils % (Manual) Band Neutrophils % Lymphocytes % (Manual) Monocytes % (Manual) Eosinophils % (Manual) Basophils % (Manual) Metamyelocytes % Myelocytes % Promyelocytes % Blast Cells % Plasma Cell % (Manual) Other Cells % Nucleated RBC % 0 Nucleated RBCs/100 WBC Differential Comment Diff Path Review Hypersegmented Neuts Atypical Lymphocytes Reactive Lymphocytes Smudge Cells Toxic Granulation Toxic Vacuolation Dohle Bodies Ayesha Rods Platelet Estimate Plt Morphology Comment RBC Morphology Polychromasia Hypochromasia Basophilic Stippling Anisocytosis Microcytosis Macrocytosis Spherocytes Sickle Cells Target Cells Tear Drop Cells Ovalocytes Stomatocytes [place] Bodies Rikki Cells Bite Cells Crenated Cell Acanthocytes (Spur) Rouleaux Schistocytes Sodium Potassium Chloride Carbon Dioxide Anion Gap BUN Creatinine Estim Creat Clear Calc Est GFR (MDRD) Non-Af BUN/Creatinine Ratio Glucose Calcium Total Bilirubin AST ALT Alkaline Phosphatase Total Protein Albumin Globulin Albumin/Globulin Ratio Lipase Serum , Qual Urine Color Urine Clarity Urine pH Ur Specific [place] Urine Protein Urine Glucose (UA) Urine Ketones Urine Occult Blood Urine Nitrite Urine Bilirubin Urine Urobilinogen Ur Leukocyte Esterase Urine RBC Urine WBC Ur Squamous Epith Cells Urine Bacteria Urine Mucus Radiography Diagnostic Testing: Clinical Impression(s) from Imaging Studies Abdomen/Pelvis CT 10/16/25 20:22 IMPRESSION: No acute or active inflammatory intra-abdominal pathology. Reading Location: [facility] CT scan of the abdomen and pelvis was obtained. There is no acute intra-abdominal abnormality noted. This was interpreted by the radiologist. I also independently reviewed the images and did not see any evidence of bowel obstruction, perforation, pyelonephritis, or ureteral calculus. Treatment and Re-Evaluation :: Patient was given morphine and Zofran. Patient was given IV fluids. Patient was given a repeat dose of morphine and Zofran. Patient was advised of her findings. Patient was given a prescription for Keflex and a prescription for a short course of Bourg. Patient was instructed to follow-up with her primary care physician in 3 to 5 days. Patient was instructed to return if worse in any way. Patient understood and was agreeable with the plan. All questions were answered. Discharge Plan Triage Chief Complaint: Abd Pain Other Complaint: Constipation ED Provider: Joseph Delgado Dx/Rx/DC Orders Clinical Impression: Urinary tract infection, Abdominal pain Instructions: ED Abdominal Pain Unkn Cause Fem Prescriptions: New hydrocodone-acetaminophen 5-325 mg tablet 1 tab PO Q6H PRN PRN (Reason: Pain) 3 Days Qty: 10 0RF cephalexin 500 mg capsule 500 mg PO Q6 Qty: 12 0RF No Action hydroxyzine HCl 50 mg tablet 50 mg PO BID PRN (Reason: anxiety) Qty: 180 1RF doxepin 150 mg capsule 150 mg PO DAILY Qty: 90 1RF prazosin 2 mg capsule 2 mg PO QHS Qty: 30 1RF lamotrigine 25 mg tablet 25 mg PO DAILY Qty: 46 0RF Rx Instructions: Take 1 tablet daily for 14 days then take 2 tablets daily thereafter diazepam 5 mg tablet 5 mg PO TID PRN Qty: 30 0RF modafinil 100 mg tablet 100 mg PO QAM Qty: 30 0RF Rx Instructions: Take in addition to 200mg tablet for a total of 300mg daily modafinil 200 mg tablet 200 mg PO DAILY Qty: 30 0RF Rx Instructions: Take in addition to 100mg tablet for a total of 300mg daily loperamide 2 mg capsule 2 mg PO PRN Rx Instructions: MAX 8/DAILY acetaminophen 500 mg capsule 500 mg PO Q6H PRN (Reason: pain) lisinopril 2.5 mg tablet 2.5 mg PO DAILY insulin lispro 100 unit/mL insulin pen 15 unit subcut TID insulin glargine [Lantus Solostar U-100 Insulin] 100 unit/mL (3 mL) insulin pen 40 unit subcut BID insulin glargine-yfgn 100 unit/mL (3 mL) insulin pen 40 unit subcut BID trazodone 50 mg tablet 50 mg PO QHS spironolactone 50 mg tablet 50 mg PO DAILY hyoscyamine sulfate [Levsin] 0.125 mg tablet 0.125 mg PO Q8H PRN (Reason: dyspepsia) Qty: 20 0RF famotidine 20 mg tablet 20 mg PO BID Qty: 28 0RF Ozempic 0.25 mg or 0.5 mg (2 mg/3 mL) pen injector 1 mg subcut QWEEK promethazine 25 mg tablet 25 mg PO TID PRN (Reason: nausea and vomiting) Qty: 21 0RF (DME) FreeStyle Javon 2 Harrah Misc See Rx Instructions .Route Qty: 1 0RF Rx Instructions: As directed (DME) FreeStyle Javon 2 Sensor Kit See Rx Instructions .Route Qty: 1 8RF Rx Instructions: As directed (DME) lancets Misc See Rx Instructions .ROUTE .MEDSUPPLY Qty: 200 2RF Rx Instructions: As directed, fasting and 2 hours post meals (DME) True Metrix Glucose Test Strip Strip See Rx Instructions .Route Qty: 100 2RF Rx Instructions: As directed, fasting and 2hr post meals .4x daily (DME) True Metrix Glucose Test Strip Strip See Rx Instructions .Route Qty: 100 6RF Rx Instructions: Test fasting and 2 hours after breakfast, lunch, dinner (DME) lancets [Droplet Lancets] 30 gauge misc See Rx Instructions .ROUTE .MEDSUPPLY Qty: 200 6RF Rx Instructions: Check blood sugars fasting and 2 hours after breakfast, lunch, and supper. Primary Care Provider: Lara Santana Referrals: Lara Santana MD [Primary Care Provider, Medical] - 3-5 Days Print Language: Turkish
[2025-10-16 19:32] LABS: Mucous, Urine 0 SEEN /hpf (<or=2+)
[2025-10-16 19:56] LABS: Lipase 23 U/L (13-75)
[2025-10-16] MEDS: 0.9% Normal Saline (1000mL) 1,000 ML 1000 ML IV (19:56)
[2025-10-16 19:59] LABS: AST(SGOT) 17 U/L (<=31); Alanine Aminotransfer ALT/SGPT 11 U/L (<=34); Albumin, Serum 4.1 g/dL (3.5-5.0); Alkaline Phosphatase 111 U/L (35-104); Anion Gap 12 (5-15); BUN 7 mg/dL (4-19); BUN/Creat Ratio 8.0 RATIO (10-20); Calcium,Total 9.4 mg/dL (7.6-11.0); Carbon Dioxide 22.7 mmol/L (21.0-32.0); Chloride 102 mmol/L (98-108); Estimated Creatinine Clearance 131.08 ml/min (50-250); Globulin 3.9 g/dL (2.2-4.2); Glucose 130 mg/dL (70-99); Potassium 3.7 mmol/L (3.3-5.1)
[2025-10-16 20:08] LABS: Internal QC Validated? YES +Cl - CLEAR BKGD; Pregnancy, Serum, hCG Quali. NEGATIVE Negative
--- NOTE | 2025-10-16 20:22 | CT_ITS ---
PROCEDURE: CT ABDOMEN/PELVIS W IV CONT ONLY 10/16/2025 REASON FOR EXAM: ABDOMINAL PAIN TECHNIQUE: Procedure Code: [id number] Modality: CT Procedure: ABDOMEN/PELVIS W IV CONT ONLY Coronal and Sagittal reconstruction series were provided. CONTRAST: Isovue 370 VOLUME: 97 mL One or more dose reduction techniques were used (e.g., Automated exposure control, adjustment of the mA and/or kV according to patient size, use of iterative reconstruction technique. RADIATION DOSE SUMMARY: DLP: 1279.55 mGycm COMPARISON: 06/04/2025 FINDINGS: Lung bases: Clear. Liver: No significant abnormality. Gallbladder: Surgically absent. Spleen: Unremarkable. Pancreas: Unremarkable. Adrenals: Unremarkable Kidneys: Unremarkable. No urolithiasis or hydronephrosis. Bladder: Unremarkable. Reproductive Organs: Unremarkable uterus and adnexae. Bowel: No evidence of obstruction or active inflammation. Normal appendix. Lymph nodes: No suspicious lymph node enlargement. Vasculature: Normal in course and caliber. Peritoneum / Retroperitoneum: No ascites or free air. Bones: No significant abnormality. CT/Abdomen/Pelvis W IV Cont ONLY IMPRESSION: No acute or active inflammatory intra-abdominal pathology. Reading Location: [id number]
--- OUTSIDE RECORDS SUMMARY | 2025-10-16 20:36 | XMS RPT_ITS | CCD ---
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 Name Role Phone JAYDEN PÉREZ Unavailable Unavailable PROVIDER, UNKNOWN Unavailable Unavailable No, PCP Unavailable Unavailable MAYELA ELLIOTT Unavailable Unavailable FREDDIE SHAW V Unavailable Unavailable YEIMY PEREIRA Unavailable Unavailable Young, Jade S Unavailable Unavailable Jere Jade S Unavailable Unavailable Nirmal Maddox Unavailable Unavailable Nirmal Maddox Unavailable Unavailable Swapna Izquierdo Unavailable Unavailable Swapna Izquierdo Unavailable Unavailable Freddie Tinoco Unavailable [phone] AMBERLY MORGAN Unavailable Unavailable SELF, REFERRED [...] Primary Car e Provider Unavailable Esther SEAMAN [facility] Primary Care Provider EARL COLORADO Attending Unavailable EARL COLORADO Admitting Unavailable EARL COLORADO Referring Unavailable CARLINE POLLACK Attending Unavailable JOSE GUADALUPE GUPTA Attending Unavailable EARL COLORADO Referring Unavailable EARL COLORADO Admitting Unavailable STANISLAV, EARL Amos Attending Unavailable STANISLAV, EARL Amos Admitting Unavailable STANISLAV, EARL Amos Attending Unavailable GENERIC PROVIDER, NO ASSIGNED PCP Primary Care Unavailable STANISLAV, EARL Amos Referring Unavailable EARL COLORADO Attending Unavailable JOSE GUADALUPE GUPTA A Referring Unavailable GENERIC PROVIDER, NO ASSIGNED PCP Primary Care Unavailable HARRIET SPENCER Attending Unavailable GENERIC PROVIDER, NO ASSIGNED PCP Primary Care Unavailable JOSE GUADALUPE GUPTA Referring Unavailable GENERIC PROVIDER, NO ASSIGNED PCP [...] Attending Unavailable BAZELLA, KELLI A Admitting Unavailable BAZELLA KELLI A Attending Unavailable GENERIC PROVIDER, NO ASSIGNED PCP Primary Care Unavailable JOSE GUADALUPE MILLS E Admitting Unavailable SHAKER, ALBERTO Attending Unavailable SHAKER, ALBERTO Referring Unavailable GENERIC PROVIDER, NO ASSIGNED PCP Primary Care Unavailable RANJEET, CARLINE Pathak Attending Unavailable ZARRABI, ZOË Attending Unavailable ZARRABI, ZOË Primary Care Unavailable YULIYA OTOOLE Attending Unavailable GENERIC PROVIDER, NO ASSIGNED PCP Primary Care Unavailable ZARRABI, ZOË Attending Unavailable ZARRABI, ZOË Referring Unavailable GENERIC PROVIDER, NO ASSIGNED PCP Primary Care Unavailable ZARRABI, ZOË Attending Unavailable ZARRABI, ZOË Primary Care Unavailable ZARRABI, ZOË Attending Unavailable ZARRABI, ZOË Primary Care Unavailable Pacheco VSC, Leticia Primary Care Unavailabl e Pacheco HUSSEINC, Leticia Referring Unavailabl e Amberly Haas Attending Unavailabl Marisol Goodson Referring Unavailable Marisol Elliott Attending Unavailable Care Physician, No Primary Primary Care Unava ilable Zarrabi, Zoë Primary Care Unavailable Agustín Estrada Attending Unavailable Jaida Fiore Attending Unavailable Care Physician, No Primary Primary Care Unava ilable Santi Shaver Attending Unavailable Care Physician, No Primary Primary Care Unava ilable Zarrabi, Zoë Primary Care Unavailable Amberly Laboy Attending Unavailable [facility] Primary Care Unavailable Amberly Laboy Attending Unavailable Jaida Fiore Attending Unavailable [facility] Primary Care Unavailable Amberly Haas Attending Unavailabl e Care Physician, No Primary Primary Care Unava ilable Care Physician, No Primary Referring Unava ilable Care Physician, No Primary Primary Care Unava ilable Amberly Laboy Attending Unavailable Amberly Laboy Attending Unavailable Care Physician, No Primary Primary Care Unava ilable Care Physician, No Primary Primary Care Unava ilable Mayela Jacinto Attending Unavailable Care Physician, No Primary Referring Unava ilable Zarrabi, [facility] Primary Care Unavailable Amberly Laboy Attending Unavailable Amberly Laboy Attending Unavailable Care Physician, No Primary Primary Care Unava ilable [facility] Primary Care Unavailable Amberly Laboy Attending Unavailable Jaida Fiore Attending Unavailable [facility], [facility] Primary Care Unavailable Jaida Fiore Attending Unavailable [facility], [facility] Primary Care Unavailable Jaida Fiore Attending Unavailable Care Physician, No Primary Primary Care Unava ilable [facility] Primary Care Unavailable Amberly Laboy Attending Unavailable Major Mejia Attending Unavailable Care Physician, No Primary Primary Care Unava ilable Amberly Haas Attending Unavailabl e Pacheco VSC, Leticia Referring Unavailabl e Care Physician, No Primary Primary Care Unava ilable Jaida Fiore Attending Unavailable Care Physician, No Primary Primary Care Unava ilable Hemal Salinas Attending Unavailable Care Physician, No Primary Primary Care Unava ilable Pacheco STONE, Leticia Referring Unavailabl Amberly Carter Attending Unavailable Care Physician, No Primary Primary Care Unava ilable Pacheco STONE, Leticia Referring Unavailabl Marisol Goodson Attending Unavailable Pacheco VSC, Leticia Primary Care Unavailabl e Care Physician, No Primary Primary Care Unava ilable Amberly Laboy Attending Unavailable Amberly Laboy Attending Unavailable Care Physician, No Primary Primary Care Unava ilable Jaida Fiore Attending Unavailable Care Physician, No Primary Primary Care Unava ilable Jaida Fiore Attending Unavailable Care Physician, No Primary Primary Care Unava ilable Hemal Salinas Attending Unavailable Care Physician, No Primary Primary Care Unava ilable Leticia Schulz Referring Unavailabl e Jaida Fiore Attending Unavailable Care Physician, No [...] Care Unava ilable Amberly Laboy Attending Unavailable SkAmberly morales Attending Unavailable Care Physician, No Primary Primary Care Unava ilable Mayela Jacinto Attending Unavailable Care Physician, No Primary Primary Care Unava ilable Care Physician, No Primary Referring Unava ilable Care Physician, No Primary Primary Care Unava ilable Rodolfo Keene Attending Unavailable Care Physician, No Primary Referring Unava ilable Jaida Fiore Attending Unavailable [facility], [facility] Primary Care Unavailable [facility], [facility] Primary Care Unavailable Amberly Laboy Attending Unavailable [facility] Primary Care Unavailable Amberly Laboy Attending Unavailable Jaida Fiore Attending Unavailable Care Physician, No Primary Primary Care Unava ilable Amberly Laboy Attending Unavailable Care Physician, No Primary Primary Care Unava ilable Care Physician, No Primary Primary Care Unava ilable Amberly Laboy Attending Unavailable Jaida Fiore Attending Unavailable [facility] Primary Care Unavailable Hemal Salinas Referring Unavailable Hemal Salinas Attending Unavailable Care Physician, No Primary Primary Care Unava ilable Mayela Jacinto Referring Unavailable Mayela Jacinto Attending Unavailable Care Physician, No Primary Primary Care Unava ilable Care Physician, No Primary Primary Care Unava ilable TONY THOMPSON Attending Unavailable Marisol Elliott Attending Unavailable Marisol Elliott Referring Unavailable Leticia Schulz Primary Care Unavailabl e Zarrabi, Zoë Primary Care Unavailable Amberly Laboy Attending Unavailable Jaida Fiore Attending Unavailable [facility], Zoë Primary Care Unavailable Jaida Fiore Attending Unavailable [facility], [facility] Primary Care Unavailable Major Mejia Attending Unavailable [facility], [facility] Primary Care Unavailable [facility], [facility] Primary Care Unavailable Shivani Quevedo Attending Unavailable Allergies Allergy Classification Reported Allergen(s) Allergy Type Date of Onset Reaction(s) Facility (5 sources) hydrocortisone; Translations: [HYDROCORTISONE SOD SUCCINATE] Drug Allergy 08-07-20 15 [facility] (4 sources) metroNIDAZOLE; Translations: [METRONIDAZOLE HCL] Drug Allergy 08-07-20 15 [facility] (20 sources) midazolam; Translations: [MIDAZOLAM] Drug Allergy 03-12-20 15 Anxiety, Nausea Only [facility] (7 sources) Penicillins; Translations: [PENICILLINS] Propensity to adverse reactions to drug 02-04-20 14 Itching [facility] (9 sources) buPROPion; Translations: [BUPROPION] Drug Allergy 10-13-20 16 Hallucinations , Rash [facility] Work Phone: (2 sources) Ciprofloxacin; Translations: [CIPROFLOXACIN HCL] Drug Allergy 05-20-20 15 Swelling [facility] Work Phone: (9 sources) Ciprofloxacin; Translations: [CIPROFLOXACIN] Drug Allergy 05-20-20 15 Swelling [facility] Work Phone: (8 sources) Citalopram; Translations: [CITALOPRAM] Drug Allergy 11-12-19 17 Anxiety [facility] Work Phone: (2 sources) clonazePAM; Translations: [CLONAZEPAM] Drug Allergy 10-13-20 16 [facility] Work Phone: (2 sources) Hydrocortisone; Translations: [HYDROCORTISONE] Drug Allergy 08-07-20 15 [facility] Work Phone: (5 sources) methylPREDNISolone; Translations: [METHYLPREDNISOLONE] Drug Allergy 03-12-20 15 Anaphylaxis [facility] Work Phone: (1 source) methylPREDNISolone Drug Allergy 03-12-20 15 [facility] Work Phone: (8 sources) metroNIDAZOLE; Translations: [METRONIDAZOLE] Drug Allergy 08-07-20 15 Diarrhea [facility] Work Phone: (15 sources) Midazolam; Translations: [MIDAZOLAM HCL] Drug Allergy 09-23-20 12 Other [facility] Work Phone: (2 sources) Morphine; Translations: [MORPHINE] Drug Allergy 09-23-20 12 [facility] Work Phone: (1 source) Penicillins Propensity to adverse reactions to drug 09-01-20 15 Itching [facility] Work Phone: (7 sources) Sertraline; Translations: [SERTRALINE] Drug Allergy 10-08-20 12 Unknown [facility] Work Phone: (18 sources) Benzocaine; Translations: [BENZOCAINE] Drug Allergy 08-18-20 22 Anaphylaxis [facility] (18 sources) butamben; Translations: [BUTAMBEN] Drug Allergy 08-18-20 22 Anaphylaxis [facility] (13 sources) methylPREDNISolone; Translations: [methylprednisolone sodium succinate] Drug Allergy 08-18-20 22 Anaphylaxis [facility] (18 sources) Tetracaine; Translations: [TETRACAINE] Drug Allergy 08-18-20 22 Anaphylaxis [facility] (7 sources) Adhesive agent; Translations: [ADHESIVE] Propensity to adverse reactions to drug (disorder) 11-07-19 14 Rash [facility] Other [facility] (1 source) Amoxicillin; Translations: [AMOXICILLIN] Drug Allergy 02-04-20 14 [facility] Other [facility] (8 sources) gabapentin; Translations: [GABAPENTIN] Drug Allergy 12-25-19 14 Unknown, Other [facility] (7 sources) Propofol; Translations: [PROPOFOL] Drug Allergy 02-19-20 14 Other [facility] (1 source) Sertraline; Translations: [SERTRALINE HCL] Drug Allergy 10-08-20 12 [facility] (1 source) METHYLPREDNISOLONE SODIUM SUCC; Translations: [METHYLPREDNISOLONE SODIUM SUCC] Propensity to adverse reactions to drug (disorder) 09-23-20 12 [facility] (8 sources) Metoclopramide; Translations: [METOCLOPRAMIDE] Drug Allergy 02-22-20 24 Other [facility] (1 source) Penicillins Propensity to adverse reactions 02-04-20 14 Hives, Itching, Unknown [facility] (18 sources) Metoclopramide; Translations: [METOCLOPRAMIDE HCL] Drug Allergy 12-24-19 25 Other [facility] (18 sources) Solu-Medrol Mix-O-Vial; Translations: [SOLU-MEDROL MIX-O-VIAL] Propensity to adverse reactions 12-23-19 25 Anaphylaxis [facility] (4 sources) Penicillins Propensity to adverse reactions 02-04-20 14 Hives, Itching, Other, Unknown [facility] Work Phone: (1 source) Benzocaine Drug Allergy 09-10-20 25 [facility] (1 source) butamben Drug Allergy 09-10-20 25 [facility] (1 source) methylPREDNISolone Drug Allergy 09-10-20 25 [facility] (1 source) Metoclopramide Drug Allergy 09-10-20 25 [facility] (1 source) Midazolam Drug Allergy 09-10-20 25 [facility] (1 source) Sertraline Drug Allergy 09-10-20 25 [facility] (1 source) Tetracaine Drug Allergy 09-10-20 25 [facility] Medications Current Medications Medication Drug Class(es) Dates Sig (Normalized) Sig (Original) aspirin 81 mg delayed release oral tablet (15 sources) Platelet Aggregation Inhibitor, Nonsteroidal Anti-inflammatory Drug [...] twenty-four hours as needed blood-glucose meter misc (16 sources) Start: 12-25-2024 blood-glucose meter misc Indications: Insulin controlled gestational diabetes mellitus (GDM) in second trimester ([facility]) Use for testing blood sugar fasting and 1 hour after each meal. 4-6 times per day during 1 each 12/25/2024 12:13 PM EST 12/25/2024 Active blood-glucose sensor (Dexcom G7 Sensor) device (16 sources) Start: 06-10-2025 blood-glucose sensor (Dexcom G7 Sensor) device Indications: Insulin controlled gestational diabetes mellitus (GDM) in second trimester ([facility]) Use 1 sensor and change every 10 days 3 each 06/10/2025 Active Start: 03-01-2025 blood-glucose sensor (Dexcom G7 Sensor) device Indications: Insulin controlled gestational diabetes mellitus (GDM) in second trimester ([facility]) Use 1 sensor and change every 10 days 3 each 2 03/01/2025 Active Start: 02-03-2025 End: 03-01-2025 blood-glucose sensor (Dexcom G7 Sensor) device Indications: Insulin controlled gestational diabetes mellitus (GDM) in second trimester ([facility]) Use 1 sensor and change every 10 days 3 each 02/03/2025 03/01/2025 Discontinued Start: 02-03-2025 blood-glucose sensor (Dexcom G7 Sensor) device Indications: Insulin controlled gestational diabetes mellitus (GDM) in second trimester ([facility]) Use 1 sensor and change every 10 days 3 each 02/03/2025 Active Start: 12-29-2024 blood-glucose sensor (Dexcom G7 Sensor) device Indications: Insulin controlled gestational diabetes mellitus (GDM) in second trimester ([facility]) Use 1 sensor and change every 10 days 3 each 01/01/2025 3:04 PM EST 12/29/2024 Active calcium [...] mg tablet Indications: care following vaginal delivery ([facility]) Take 1 tablet (10 mg) by mouth 3 times a day as needed for muscle spasms (cramping) for up to 14 days. 42 tablet 02/15/2025 11:26 AM EDT 02/15/2025 03/01/2025 Discontinued (Stop Taking at Discharge) Start: 02-08-2025 take 10 mg by mouth once 10 mg , oral, Once, On 02/09/25 at 1700, For 1 dose Start: 01-15-2025 End: 01-25-2025 take 1 tablet by mouth three times daily as needed for muscle spasms cyclobenzaprine (Flexeril) 5 mg tablet Indications: Headache in , antepartum ([facility]) Take 1 tablet (5 mg) by [...] 2023 12:00am diazePAM 10 mg oral tablet (20 sources) Benzodiazepine Start: 09-05-2023 End: 03-03-2025 take [...] oral, 2 times daily, First dose on 02/13/25 at 1245 docusate sodium 50 mg / sennosides, mcc 8.6 mg oral tablet (1 source) Start: 02-12-2025 doxepin hydrochloride 75 mg oral capsule (20 sources) Tricyclic Antidepressant Start: 12-23-2024 End: 03-02-2025 take 1 capsule by mouth once daily at bedtime doxepin (SINEquan) 75 mg capsule Indications: Depression affecting in third trimester, antepartum ([facility]) Take 1 capsule (75 mg) by [...] 05, 2023 12:00am 21 day ethinyl estradiol 0.753150 mg/hr / etonogestrel 0.005 mg/hr vaginal ring [...] CAD hydrOXYzine hydrochloride 10 mg oral tablet (9 sources) Antihistamine Start: 02-15-2025 End: 03-01-2025 take 2.5 tablets by mouth twice daily as needed for anxiety hydrOXYzine HCL (Atarax) 10 mg tablet Indications: Depression affecting in third trimester, antepartum ([facility]) Take 2.5 tablets (25 mg) by [...] as needed ibuprofen (ADVIL,MOTRIN) tablet 400 mg 3 ml insulin aspart, human 100 unt/ml pen injector (1 source) Insulin Analog Start: 06-17-2025 End: 06-17-2026 insulin aspart (NovoLOG Flexpen U-100 Insulin) 100 unit/mL (3 mL) pen Indications: Type 2 diabetes mellitus without complication, with long-term current use of insulin Inject 15 Units under the skin 3 times a day before meals. Take as directed per insulin instructions. 12 mL 11 06/17/2025 06/17/2026 Active 3 ml insulin glargine 100 unt/ml pen injector (8 sources) Insulin Analog Start: 05-26-2025 insulin glargi ne (Lantus) 100 unit/mL (3 mL) pen Indications: Type 2 diabetes mellitus without complication, with long-term current use of insulin Inject 40 units twice daily. 12 each 05/26/2025 Active Start: 05-07-2025 End: 05-13-2025 insulin glargine (Lantus) 10 0 unit/mL (3 mL) pen Inject 40 units twice daily. 12 each 05/13/2025 05/13/2025 Discontinued Start: 03-09-2025 insulin glargi ne (Lantus) 100 unit/mL (3 mL) pen Indications: Insulin controlled gestational diabetes mellitus (GDM) in second trimester ([facility]) Inject 40 units twice daily. 24 mL 1 03/09/2025 Active Start: 03-01-2025 inject 40 [IU] by gandara bcutaneous injection once daily insulin glargine (Lantus) 100 unit/mL (3 mL) pen Indications: Insulin controlled gestational diabetes mellitus (GDM) in second trimester ([facility]) Inject 40 Units under the skin once daily. Take as directed per insulin instructions. 15 mL 03/01/2025 Active isopropyl alcohol 0.7 ml/ml medicated pad (17 sources) Start: 12-25-2024 alcohol swabs pads, medicated Indications: Insulin controlled gestational diabetes mellitus (GDM) in second trimester ([facility]) Use 1, up to 5 times [...] Status: Ordered lisinopril 2.5 mg oral tablet (2 sources) Angiotensin Converting Enzyme Inhibitor Start: 03-18-2025 take 1 tablet by mouth once daily lisinopril 2.5 mg tablet Indications: Benign essential HTN Take 1 tablet (2.5 mg) by mouth once daily. 30 tablet 03/18/2025 Active loperamide hydrochloride 2 mg oral capsule (5 sources) Opioid Agonist Start: 04-15-2025 take 1 [...] amino acid chelate 133 mg oral tablet (2 sources) Start: 03-18-2025 End: 03-18-2026 take 1 tablet [...] signs and symptoms of magnesium toxicity including: CLINIC ADMINISTRATOR depression, diminished DTRs, increasing muscle weakness, respirations [...] Start: 02-13-2025 modafinil 200 mg oral tablet (13 sources) Sympathomimetic-li ke Agent Start: 09-05-2023 take [...] administration. Start: 02-16-2025 take 1 capsule by [facility] once as needed 10 mg, oral, [...] pantoprazole 40 mg delayed release oral tablet (18 sources) Proton Pump Inhibitor Start: 01-08-2025 End: 03-06-2026 take 1 tablet by mouth once daily [...] by mouth daily Active polyethylene glycol 3350 60036 mg powder for oral solution (2 sources) Osmotic Laxative Start: 02-13-2025 Start: 12-23-2024 Lodhahji-Bln-Dq-FA ( 1 + IRON PO) (1 source) Multivi t-Min-Fe-FA ( 1 + IRON PO) Take 1 tablet by mouth daily. Active vitamin (iron-folic ) tablet 1 tablet (1 source) Start: 12-23-2024 semaglutide (Ozempic) 1 mg/d ose (4 mg/3 mL) pen injector (1 source) Start: 06-24-2025 semaglutide (Ozempic) 1 mg/d ose (4 mg/3 mL) pen injector Indications: Morbid obesity with BMI of 50.0-59.9, adult (Multi) , Type 2 diabetes mellitus without complication, with long-term current use of insulin Inject 1 mg under the skin every 7 days. 3 mL 11 06/24/2025 Active simethicone 80 mg chewable t ablet (2 sources) Start: 02-13-2025 Start: 12-23-2024 spironolactone 50 mg oral tablet (6 sources) Aldosterone Antagonist Start: 05-13-2025 End: 05-13-2026 [...] Agent Start: 02-13-2025 End: 02-15-2025 traZODone hydrochloride 100 mg oral tablet (4 sources) Serotonin Reuptake Inhibitor Start: 06-24-2025 End: 06-24-2026 take 1 tablet by mouth once daily at bedtime traZODone (Desyrel) 100 mg tablet Indications: Other insomnia Take 1 tablet (100 mg) by mouth once daily at bedtime. 30 tablet 11 06/24/2025 06/24/2026 Active Start: 05-13-2025 End: 05-13-2026 take 1 tablet by mouth once daily at bedtime traZODone (Desyrel) 50 mg tablet Indications: Other insomnia Take 1 tablet (50 mg) by mouth once daily at bedtime. 30 tablet 05/13/2025 06/24/2025 Discontinued (Reorder) Start: 09-03-2018 End: 09-08-2018 take 50 mg [...] for pain 975 mg, oral, Once, On Sun02/16/25 at 1445, For 1 dose, If ordered PRN for pain, nurse is permitted to administer this medication for higher pain scores based on patient preference? Yes Start: 02-15-2025 take 3 tablets by mo uth every six hours for pain acetaminophen (Tylenol) 325 mg tablet Indications: care following vaginal delivery ([facility]) Take 3 tablets (975 mg) by [...] Opioid Agonist Start: 11-17-2023 End: 03-03-2025 HYDROcodone-acetaminophen ([place]) 5-325 mg tablet Take by mouth. 11/17/2023 [...] mL/hr, Administer over 2 Hours, Once, On Sun01/15/25 at 0315, For 1 dose Start: 09-03-2018 [...] End: 02-12-2025 50 mg, intravenous, Once, On Sun02/12/25 at 2330, For 1 dose, If giving [...] End: 01-15-2025 25 mg, intravenous, Once, On Sun01/15/25 at 0345, For 1 dose, If giving [...] refuses. 2 ml famotidine 10 mg/ml injection (18 sources) Histamine-2 Receptor Antagonist Start: 02-11-2025 End: [...] 12-23-2024 take 1 tablet by job th twice daily as needed for gastroesophageal reflux [...] as needed HYDROmorphone (DILAUDID) injection 0.25 mg insulin isophane, human 100 unt/ml injectable suspension [...] gestational diabetes mellitus (GDM) in second trimester ([facility]) Inject 40 units in the morning and 50 units at night. May increase to 150 units total per day during as needed. 45 mL 3 01/06/2025 02/15/2025 Discontinued (Stop Taking at Discharge) Start: 01-01-2025 End: 01-01-2025 insulin NPH, Isophane, (Rodrigo CHARLENE N FlexPen) 100 unit/mL (3 mL) injection Indications: Insulin controlled gestational diabetes mellitus (GDM) in second trimester ([facility]) Inject 30 units in the morning and 40 units at night. May increase to 100 units total per day during as needed. 30 mL 3 01/01/2025 Active Start: 12-25-2024 End: 01-01-2025 insulin NPH, Isophane, (Rodrigo CHARLENE N FlexPen) 100 unit/mL (3 mL) injection Indications: Insulin controlled gestational diabetes mellitus (GDM) in second trimester ([facility]) Inject 20 units in the morning [...] gestational diabetes mellitus (GDM) in second trimester ([facility]) Inject 10 Units under the skin 3 [...] gestational diabetes mellitus (GDM) in second trimester ([facility]) Inject 25 units with each meal. May increase to 150 units total per day during as needed. 45 mL 3 01/29/2025 02/15/2025 Discontinued (Stop Taking at Discharge) Start: 01-06-2025 insulin lispro (HumaLOG KwikPen Insulin) 100 unit/mL pen Indications: Insulin controlled gestational diabetes mellitus (GDM) in second trimester ([facility]) Inject 25 units with each meal. May increase to 150 units total per day during as needed. 45 mL 3 01/06/2025 Active Start: 01-01-2025 End: 01-01-2025 insulin lispro (HumaLOG Kwik Pen Insulin) 100 unit/mL injection Indications: Insulin controlled gestational diabetes mellitus (GDM) in second trimester ([facility]) Inject 15-20 units with each meal. May increase to 100 units total per day during as needed. 30 mL 3 01/01/2025 Active Start: 12-25-2024 End: 01-01-2025 insulin lispro (HumaLOG Kwik Pen Insulin) 100 unit/mL injection Indications: Insulin controlled gestational diabetes mellitus (GDM) in second trimester ([facility]) Inject 10 units with each meal. [...] 1 ml medroxyPROGESTERone acetate 150 mg/ml injection (4 sources) Progestin Start: 03-10-2025 End: 03-10-2025 medroxyPROGESTERone [...] patient is pulseless, breathless, and unresponsive, Starting 10/30/18 at 1738 Call a code first, then [...] daily Prednisone Active 40 MG PO DAILY 18 05February 22, 2024 12:00am Start: 07-09-2018 predniSONE 10 [...] 3 day Indications: 32 weeks gestation of ([facility]) Place 1 patch over 72 hours on the skin every 3rd day. 10 patch 2 02/05/2025 03/01/2025 Discontinued (Stop Taking at Discharge) Start: 09-03-2018 End: 09-06-2018 scopolamine (TRANSDERM-SCOP) 1 mg over 3 days patch 1 patch semaglutide 0.25 mg or 0.5 mg (2 mg/3 mL) pen injector (3 sources) Start: 05-13-2025 End: 06-24-2025 inject 0.5 mg by subcutaneous injection every week semaglutide 0.25 mg or 0.5 mg (2 mg/3 mL) pen injector Indications: Type 2 diabetes mellitus without complication, with long-term current use of insulin Inject 0.5 mg under the skin 1 (one) time per week. 3 mL 05/13/2025 06/24/2025 Discontinued (Therapy completed) Start: 05-13-2025 inject 0.5 mg by sub cutaneous injection every week semaglutide 0.25 mg or [...] days. 3 mL 03/18/2025 05/13/2025 Discontinued (Reorder) sertraline 100 mg oral tablet (12 sources) [...] Start: 05-01-2016 take 1 capsule by mo [facility] at bedtime dronabinol 5 MG capsule Take 5 mg by mouth at bedtime. 05/01/2016 Active Problems Active Problems Problem Classification Problem Date Documented Da te Episodic/Chronic Abdominal pain (20 sources) Unspecified abdominal pain; Translations: [Lower abdominal pain, unspecified] Onset: 5 Resolved: 6 10-26-2017 Episodic Administrative/social admission (8 sources) Malingerer [conscious simulation]; Translations: [Malingering] Onset: 6 Resolved: 7 10-22-2017 Episodic Anxiety disorders (14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 Performed By: #### L 100.0100, L500.4050 ####[facility] [address] [place], [address] CO2 [Moles/Vol] 19.0 mmol/L Low 21.0-32.0 [facility] Comment on above: Performed By: #### L 100.0100, L500.4050 ####[facility] [address] [place], [address] Creatinine [Mass/Vol] 0.77 mg/dL Normal 0.70-1.20 [facility] Comment on above: Performed By: #### L 100.0100, L500.4050 ####[facility] [address] [place], [address] ECRCL 145.30 ml/min Normal 50-250 [facility] Comment on above: Performed By: #### L 100.0100, L500.4050 ####[facility] [address] [place], [address] GAP 13 Normal 5-15 [facility] Comment on above: Performed By: #### L 100.0100, L500.4050 ####[facility] [address] [place], [address] GFR/1.73 sq M.predicted among non-blacks MDRD (S/P/Bld) [Vol rate/Area] 104 mL/min/{1.73_m2} Normal >60 [facility] Comment on above: Result Comment: mL/m in/1.73m2 CKD-EPI Creatinine Equation (2020) Performed By: #### L 100.0100, L500.4050 ####[facility] [address] [place], [address] Globulin (S) [Mass/Vol] 3.2 g/dL Normal 2.2-4.2 [facility] Comment on above: Performed By: #### L 100.0100, L500.4050 ####[facility] [address] [place], [address] Glucose [Mass/Vol] 107 mg/dL High 70-99 [facility] Comment on above: Performed By: #### L 100.0100, L500.4050 ####[facility] [address] [place], [address] Potassium [Moles/Vol] 3.7 mmol/L Normal 3.3-5.1 [facility] Comment on above: Performed By: #### L 100.0100, L500.4050 ####[facility] [address] [place], [address] Sodium [Moles/Vol] 139 mmol/L Normal 133-145 [facility] Comment on above: Performed By: #### L 100.0100, L500.4050 ####[facility] [address] [place], [address] T PROT 7.3 g/dL Normal 5.9-8.4 [facility] Comment on above: Performed By: #### L 100.0100, L500.4050 ####[facility] [address] [place], [address] Urea nitrogen [Mass/Vol] 9 mg/dL Normal 4-19 [facility] Comment on above: Performed By: #### L 100.0100, L500.4050 ####[facility] [address] [place], [address] Emergency Department Summary on 06-04-2025 Emergency Department Summary Normal [facility] ,Urineon 06-04-2025 Beta HCG ( test) Ql (U) Negative Normal [facility] Comment on above: Result Comment: Very dilute urine specimens, as indicated by a low specificgravity, may not contain associate financial representative levels of hCG.If is still suspected, a first morning urinespecimen should be collected 48 hours later and tested. Performed By: #### L 400.7600, L400.0001 ####[facility] [address] [place], [address] Urinalysis, Completeon 06-04 WBC 0-5 SEEN Normal 0-5 [facility] Comment on above: Order Comment: CLEAN CATCH Performed By: #### L 400.7600, L400.0001 ####[facility] [address] [place], [address] BACTERIA 0 SEEN Normal None Seen [facility] Comment on above: Order Comment: CLEAN CATCH Performed By: #### L 400.7600, L400.0001 ####[facility] [address] [place], [address] EPI,SQUAMOUS 0 SEEN Normal 5-10 [facility] Comment on above: Order Comment: CLEAN CATCH Performed By: #### L 400.7600, L400.0001 ####[facility] [address] [place], [address] Mucus Ql (Urine sed) 0 SEEN Normal [facility] Comment on above: Order Comment: CLEAN CATCH Performed By: #### L 400.7600, L400.0001 ####[facility] [address] [place], [address] RBC 0 SEEN Normal 0-5 [facility] Comment on above: Order Comment: CLEAN CATCH Performed By: #### L 400.7600, L400.0001 ####[facility] [address] [place], [address] MR/BMS.BPon 06-02-2025 MR/BMS.BP Normal [facility] Acute Abdomen Inc Cheston Acute Abdomen Inc Chest Normal [facility] Basic Metabolic Profile (BMP )on 05-20-2025 BUN/CRE 15.1 RATIO Normal 10-20 [facility] Comment on above: Performed By: #### L 500.3400, L501.2450, L500.2500, L100.0100 ####[facility] [address] [place], [address] Calcium [Mass/Vol] 9.3 mg/dL Normal 7.6-11.0 [facility] Comment on above: Performed By: #### L 500.3400, L501.2450, L500.2500, L100.0100 ####[facility] [address] [place], [address] Chloride [Moles/Vol] 103 mmol/L Normal 98-108 [facility] Comment on above: Performed By: #### L 500.3400, L501.2450, L500.2500, L100.0100 ####[facility] [address] [place], [address] CO2 [Moles/Vol] 20.0 mmol/L Low 21.0-32.0 [facility] Comment on above: Performed By: #### L 500.3400, L501.2450, L500.2500, L100.0100 ####[facility] [address] [place], [address] Creatinine [Mass/Vol] 0.80 mg/dL Normal 0.70-1.20 [facility] Comment on above: Performed By: #### L 500.3400, L501.2450, L500.2500, L100.0100 ####[facility] [address] [place], [address] ECRCL 137.75 ml/min Normal 50-250 [facility] Comment on above: Performed By: #### L 500.3400, L501.2450, L500.2500, L100.0100 ####[facility] [address] [place], [address] GAP 13 Normal 5-15 [facility] Comment on above: Performed By: #### L 500.3400, L501.2450, L500.2500, L100.0100 ####[facility] [address] [place], [address] GFR/1.73 sq M.predicted among non-blacks MDRD (S/P/Bld) [Vol rate/Area] 98 mL/min/{1.73_m2} Normal >60 [facility] Comment on above: Result Comment: mL/m in/1.73m2 CKD-EPI Creatinine Equation (2020) Performed By: #### L 500.3400, L501.2450, L500.2500, L100.0100 ####[facility] [address] [place], [address] Glucose [Mass/Vol] 72 mg/dL Normal 70-99 [facility] Comment on above: Performed By: #### L 500.3400, L501.2450, L500.2500, L100.0100 ####[facility] [address] [place], [address] Potassium [Moles/Vol] 3.9 mmol/L Normal 3.3-5.1 [facility] Comment on above: Result Comment: Hemo lysis present, Results??could be affected.?? Performed By: #### L 500.3400, L501.2450, L500.2500, L100.0100 ####[facility] [address] [place], [address] Sodium [Moles/Vol] 136 mmol/L Normal 133-145 [facility] Comment on above: Performed By: #### L 500.3400, L501.2450, L500.2500, L100.0100 ####[facility] [address] [place], [address] Urea nitrogen [Mass/Vol] 12 mg/dL Normal 4-19 [facility] Comment on above: Performed By: #### L 500.3400, L501.2450, L500.2500, L100.0100 ####[facility] [address] [place], [address] CBC W/Diff, Automatedon 05-05 Platelets (Bld) [#/Vol] 310 10*3/uL Normal 150-450 [facility] Comment on above: Performed By: #### L 500.3400, L501.2450, L500.2500, L100.0100 ####[facility] [address] [place], [address] Emergency Department Summary on 05-20-2025 Emergency Department Summary Normal [facility] Lipaseon 05-20-2025 Lipase [Catalytic activity/Vol] 23 U/L Normal 13-75 [facility] Comment on above: Result Comment: Anna Marie willard note:LIPASE revised reference range effective 23.New Lipase methodology. Expected to produce lower valuesthan the previous assay method.NEW Reference Range: 13 - 75 U/L Performed By: #### L 500.3400, L501.2450, L500.2500, L100.0100 ####[facility] [address] [place], [address] Liver Profileon 05-20-2025 Albumin [Mass/Vol] 4.3 g/dL Normal 3.5-5.0 [facility] Comment on above: Performed By: #### L 500.3400, L501.2450, L500.2500, L100.0100 ####[facility] [address] [place], [address] ALK PHOS 104 U/L Normal 35-104 [facility] Comment on above: Performed By: #### L 500.3400, L501.2450, L500.2500, L100.0100 ####[facility] [address] [place], [address] ALT [Catalytic activity/Vol] 29 U/L Normal <=34 [facility] Comment on above: Performed By: #### L 500.3400, L501.2450, L500.2500, L100.0100 ####[facility] [address] [place], [address] AST [Catalytic activity/Vol] 34 U/L High <=31 [facility] Comment on above: Result Comment: Hemo lysis present, Results??could be affected.?? Performed By: #### L 500.3400, L501.2450, L500.2500, L100.0100 ####[facility] [address] [place], [address] Bilirubin [Mass/Vol] 0.81 mg/dL Normal 0.00-1.30 [facility] Comment on above: Performed By: #### L 500.3400, L501.2450, L500.2500, L100.0100 ####[facility] [address] [place], [address] Bilirubin.direct [Mass/Vol] 0.20 mg/dL Normal 0.00-0.30 [facility] Comment on above: Result Comment: Hemo lysis present, Results??could be affected.?? Performed By: #### L 500.3400, L501.2450, L500.2500, L100.0100 ####[facility] [address] [place], [address] Globulin (S) [Mass/Vol] 3.6 g/dL Normal 2.2-4.2 [facility] Comment on above: Performed By: #### L 500.3400, L501.2450, L500.2500, L100.0100 ####[facility] [address] [place], [address] T PROT 7.9 g/dL Normal 5.9-8.4 [facility] Comment on above: Performed By: #### L 500.3400, L501.2450, L500.2500, L100.0100 ####[facility] [address] [place], [address] ,Serum,hCG Quali.on 05-20-2025 HCG, SERUM QUAL Negative Normal [facility] Comment on above: Performed By: #### L 700.6800 ####[facility] [address] [place], [address] MR/BMS.BPon 04-30-2025 MR/BMS.BP Normal [facility] MR/BMS.BPon 04-24-2025 MR/BMS.BP Normal [facility] MR/BMS.BPon 04-14-2025 MR/BMS.BP Normal [facility] MR/BMS.BPon 04-07-2025 MR/BMS.BP Normal [facility] MR/BMS.BPon 04-02-2025 MR/BMS.BP Normal [facility] MR/BMS.BPon 03-24-2025 MR/BMS.BP Normal [facility] MR/BMS.BPon 03-18-2025 MR/BMS.BP Normal [facility] BASIC METABOLIC PANEL WITH A NION GAPon 03-11-2025 BUN/CREATININE RATIO SEE NOTE: Normal 6-22 [facility] Comment on above: Order Comment: FASTI NG:NO FASTING: NO Result Comment: Not Reported: BUN and Creatinine are within reference range. Performed By: #### 9 2828 #### [facility] [place] [address] Electric[employer] Third: Salvador Swanson MD Calcium [Mass/Vol] 8.9 mg/dL Normal 8.6-10.2 [facility] Comment on above: Order Comment: FASTI NG:NO FASTING: NO Performed By: #### 9 0162 #### [facility] [place] [address] [employer] Third: Salvador Swanson MD Chloride [Moles/Vol] 107 mmol/L Normal 98-110 [facility] Comment on above: Order Comment: FASTI NG:NO FASTING: NO Performed By: #### 9 2832 #### [facility] [place] [address] [employer] Third: Salvador Swanson MD CO2 [Moles/Vol] 22 mmol/L Normal 20-32 [facility] Comment on above: Order Comment: FASTI NG:NO FASTING: NO Performed By: #### 9 1069 #### [facility] [place] [address] Electric[employer] Third: Salvador Swanson MD Creatinine [Mass/Vol] 0.71 mg/dL Normal 0.50-0.[address] [facility] [address] [facility] Comment on above: Order Comment: FASTI NG:NO FASTING: NO Performed By: #### 9 5506 #### [facility] [place] [address] [employer] Third: Salvador Swanson MD ELECTROLYTE BALANCE 13 mmol/L (calc) Normal 7-17 [facility] Comment on above: Order Comment: FASTI NG:NO FASTING: NO Performed By: #### 9 0373 #### [facility] [address], [address] [place] [address] Electrician Third: Salvador Swanson MD GFR/1.73 sq M.predicted among non-blacks MDRD (S/P/Bld) [Vol rate/Area] 113 mL/min/{1.73_m2} Normal > OR = 60 [facility] Comment on above: Order Comment: FASTI NG:NO FASTING: NO Performed By: #### 9 7918 #### [facility] [address], [address] [place] [address] Electrician Third: Salvador Swanson MD Glucose [Mass/Vol] 77 mg/dL Normal 65-139 [facility] Comment on above: Order Comment: FASTI NG:NO FASTING: NO Result Comment: Non-fasting reference interval Performed By: #### 9 7209 #### [facility] [address], [address] [place] [address] Electrician Third: Salvador Swanson MD Potassium [Moles/Vol] 3.9 mmol/L Normal 3.5-5.[address] [facility] [address] [facility] Comment on above: Order Comment: FASTI NG:NO FASTING: NO Performed By: #### 9 8289 #### [facility] [address], [address] [place] [address] Electrician Third: Salvador Swanson MD Sodium [Moles/Vol] 142 mmol/L Normal 135-146 [facility] Comment on above: Order Comment: FASTI NG:NO FASTING: NO Performed By: #### 9 2329 #### [facility] [address], [address] [place] [address] Electrician Third: Salvador Swanson MD Urea nitrogen [Mass/Vol] 8 mg/dL Normal 7-25 [facility] Comment on above: Order Comment: FASTI NG:NO FASTING: NO Performed By: #### 9 2236 #### [facility] [address], [address] [place] [address] Electrician Third: Salvador Swanson MD Basic metabolic 2000 panelon 03-11-2025 Anion gap [Moles/Vol] 13 mmol/L [facility] Calcium [Mass/Vol] 8.9 mg/dL 8.6 - 10. 2 mg/dL [facility] Chloride [Moles/Vol] 107 mmol/L 98 - 11 0 mmol/L [facility] CO2 [Moles/Vol] 22 mmol/L 20 - 32 mmol/L [facility] Creatinine [Mass/Vol] 0.71 mg/dL 0.50 - 0.97 mg/dL [facility] GFR/1.73 sq M.predicted among non-blacks MDRD (S/P/Bld) [Vol rate/Area] 113 mL/min/{1.73_m2} > OR = 60 mL/min/1.73m 2 [facility] Glucose [Mass/Vol] 77 mg/dL 65 - 139 mg/dL [facility] Comment on above: Non-fasting reference interval Potassium [Moles/Vol] 3.9 mmol/L 3.5 - 5.3 mmol/L [facility] Sodium [Moles/Vol] 142 mmol/L 135 - 146 mmol/L [facility] Urea nitrogen [Mass/Vol] 8 mg/dL 7 - 25 mg/dL [facility] Urea nitrogen/Creatinine [Mass ratio] SEE NOTE: [facility] Comment on above: Not Reported: BUN an d Creatinine are within reference range. FASTING:NO FASTING: NO [facility] Test strip manual (B ld) [Mass/Vol]on 03-10-2025 Glucose [Mass/Vol] 123 mg/dL High 74 - 99 mg/dL [facility] Interpretation and review of laboratory results Abnormal [facility] Glucose [Mass/Vol] 123 mg/dL High 74-99 [facility] Comment on above: Performed By: #### 2 7298-9 #### QUIN Simon ([id number]) [facility] ([facility]) [address] [place] [address] CBC (INCLUDES DIFF/PLT)on Basophils (Bld) [#/Vol] 0.053 10*3/uL Normal 0-200 [facility] Comment on above: Performed By: #### 7 600, 622, 6399, 28090, [address] #### [facility] of [address], [address] [place], [place] [id number] Electrician Third: Salvador Swanson MD #### 945 #### [facility]/[place] [id number] [facility] [place], [place] Electrician Third: Yaya Alvarez M.D.,PhD Basophils/100 WBC (Bld) 0.6 % Normal [facility] Comment on above: Performed By: #### 7 600, 622, 6399, [address]409, [address] #### [facility] of [place] [id number] Electrician Third: Salvador Swanson MD #### 945 #### [facility]/[address] [place], [place] Electrician Third: Yaya Alvarez M.D.,PhD Eosinophils (Bld) [#/Vol] 0.365 10*3/uL Normal 15-500 [facility] Comment on above: Performed By: #### 7 600, 622, 6399, 93818, 80827 #### [facility] of [address], [address] [place], [place] [id number] Electrician Third: Salvador Swanson MD #### 945 #### [facility]/[address] [place], [place] Electrician Third: Yaya Alvarez M.D.,PhD Eosinophils/100 WBC (Bld) 4.1 % Normal [facility] Comment on above: Performed By: #### 7 600, 622, 6399, [address]145, [address]14 #### [facility] of [address], [address] [place], [place] [id number] Electrician Third: Salvador Swanson MD #### 945 #### [facility]/[place] [id number] [facility] [address] [place] Electrician Third: Yaya Alvarez M.D.,PhD Erythrocyte distribution width (RBC) [Ratio] 13.0 % Normal 11.0-15.0 [facility] Comment on above: Performed By: #### 7 600, 622, 6399, 42780, 75866 #### [facility] of [address], [address] [place] [address] Electrician Third: Salvador Swanson MD #### 945 #### [facility]/[place] [id number] [facility] [place], [place] Electrician Third: Yaya Alvarez M.D.,PhD Hematocrit (Bld) [Volume fraction] 37.1 % Normal 35.0-45.0 [facility] Comment on above: Performed By: #### 7 600, 622, 6399, 29524, 48193 #### [facility] of [address], [address] [place] [address] Electrician Third: Salvador Swanson MD #### 945 #### [facility]/[address] [place] Electrician Third: Yaya Alvarez M.D.,PhD Hemoglobin (Bld) [Mass/Vol] 11.8 g/dL Normal 11.7-15.5 [facility] Comment on above: Performed By: #### 7 600, 622, 6399, [address]0850, [address] #### [facility] of [address], [address] [place], [place] [id number] Electrician Third: Salvador Swanson MD #### 945 #### [facility]/[place] [id number] [facility] [address] [place] Electrician Third: Yaya Alvarez M.D.,PhD Lymphocytes (Bld) [#/Vol] 2.243 10*3/uL Normal 850-3900 [facility] Comment on above: Performed By: #### 7 600, 622, 6399, 00149, [address] #### [facility] of [address], [address] [place], [place] [address] Electrician Third: Salvador Swanson MD #### 945 #### [facility] [address] [facility] [place], [place] Electrician Third: Yaya Alvarez M.D.,PhD Lymphocytes/100 WBC (Bld) 25.2 % Normal [facility] Comment on above: Performed By: #### 7 600, 622, 6399, 33491, 97692 #### [facility] of [address] Electrician Third: Salvador Swanson MD #### 945 #### [facility]/[address] [place], [place] Electrician Third: Yaya Alvarez M.D.,PhD MCH (RBC) [Entitic mass] 26.9 pg Low 27.0-33.0 [facility] Comment on above: Performed By: #### 7 600, 622, 6399, 14102, 72936 #### [facility] of [address] Electrician Third: Salvador Swanson MD #### 945 #### [facility]/[place] [id number] [facility] [place] Electrician Third: aYya Alvarez M.D.,PhD MCHC (RBC) [Mass/Vol] 31.8 g/dL [...] Performed By: #### 7 600, 622, 6399, 11897, 06328 #### [facility] of [address], [address] [place], [place] [id number] Electrician Third: Salvador Swanson MD #### 945 #### [facility]/[place] [id number] [facility] [place] Electrician Third: Yaya Alvarez M.D.,PhD MCV (RBC) [Entitic vol] 84.7 fL Normal 80.0-100.0 [facility] Comment on above: Performed By: #### 7 600, 622, 6399, 97832, 86337 #### [facility] of [facility] [address] , [address] [place], [place] [id number] Electrician Third: Salvador Swanson MD #### 945 #### [facility]/[place] [id number] [facility] [place] Electrician Third: Yaya Alvarez M.D.,PhD Monocytes (Bld) [#/Vol] 0.481 10*3/uL Normal 200-950 [facility] Comment on above: Performed By: #### 7 600, 622, 6399, 06275, 70010 #### [facility] of [place] [address] [address] , [address] [place], [place] [address] Electrician Third: Salvador Swanson MD #### 945 #### [facility]/[place] [id number] [facility] [place] Electrician Third: Yaya Alvarez M.D.,PhD Monocytes/100 WBC (Bld) 5.4 % Normal [facility] Comment on above: Performed By: #### 7 600, 622, 6399, 84159, 09775 #### [facility] of [facility] [address] , [address] [place], [place] [id number] Electrician Third: Salvador Swanson MD #### 945 #### [facility] [place] Electrician Third: Yaya Alvarez M.D.,PhD Neutrophils (Bld) [#/Vol] 5.758 10*3/uL Normal 1123-0770 [facility] Comment on above: Performed By: #### 7 600, 622, 6399, 24961, 91157 #### [facility] of [address], [address] [place], [place] [address] Electrician Third: Salvador Swanson MD #### 945 #### [facility]/[place] [id number] [facility] [place] Electrician Third: Yaya Alvarez M.D.,PhD Neutrophils/100 WBC (Bld) 64.7 % Normal [facility] Comment on above: Performed By: #### 7 600, 622, 6399, 70142, 99485 #### [facility] of [place] [id number] Electrician Third: Salvador Swanson MD #### 945 #### [facility]/[place] [id number] [facility] [place] Electrician Third: Yaya Alvarez M.D.,PhD Platelet mean volume (Bld) [Entitic vol] 10.2 fL Normal 7.5-12.5 [facility] Comment on above: Performed By: #### 7 600, 622, 6399, 51490, 85391 #### [facility] of [address], [address] [place], [place] [address] Electrician Third: Salvador Swanson MD #### 945 #### [facility]/[place] [id number] [facility] [place] Electrician Third: Yaya Alvarez M.D.,PhD Platelets (Bld) [#/Vol] 392 10*3/uL Normal 140-400 [facility] Comment on above: Performed By: #### 7 600, 622, 6399, 75840, 26433 #### [facility] of [address], [address] [place], [place] [address] Electrician Third: Salvador Swanson MD #### 945 #### [facility] [place] Electrician Third: Yaya Alvarez M.D.,PhD RBC ([facility]) [#/Vol] 4.38 10*6/uL Normal 3.80-5.10 [facility] Comment on above: Performed By: #### 7 600, 622, 6399, 12548, 03241 #### [facility] of [place] [address], [address] [place], [place] [address] Electrician Third: Salvador Swanson MD #### 945 #### [facility] [place] Electrician Third: Yaya Alvaerz M.D.,PhD WBC ([facility]) [#/Vol] 8.9 10*3/uL Normal 3.8-10.8 [facility] Comment on above: Performed By: #### 7 600, 622, 6399, 28705, 13960 #### [facility] of [address], [address] [place], [place] [address] Electrician Third: Salvador Swanson MD #### 945 #### [facility] [place] Electrician Third: Yaya Alvarez M.D.,PhD COMPREHENSIVE METABOLIC PANE L W/ANION GAPon 03-09-2025 Albumin [Mass/Vol] 4.0 g/dL Normal 3.6-5.1 [facility] Comment on above: Performed By: #### 7 600, 622, 6399, 70249, 37025 #### [facility] of [address] Electrician Third: Salvador Swanson MD #### 945 #### [facility] [place] Electrician Third: Yaya Alvarez M.D.,PhD ALP [Catalytic activity/Vol] 98 U/L Normal 31-125 [facility] Comment on above: Performed By: #### 7 600, 622, 6399, 01827, 87963 #### [facility] of [address], [address] [place], [place] [id number] Electrician Third: Salvador Swanson MD #### 945 #### [facility]/[place] [id number] [facility] [place] Electrician Third: Yaya Alvarez M.D.,PhD ALT [Catalytic activity/Vol] 16 U/L Normal 6-29 [facility] Comment on above: Performed By: #### 7 600, 622, 6399, 65204, 18936 #### [facility] of [place] [id number] Electrician Third: Salvador Swanson MD #### 945 #### [facility]/[address] [place] Electrician Third: Yaya Alvarez M.D.,PhD AST [Catalytic activity/Vol] 13 U/L Normal 10-30 [facility] Comment on above: Performed By: #### 7 600, 622, 6399, 83042, 91846 #### [facility] of [place] [address] Electrician Third: Salvador Swanson MD #### 945 #### [facility]/[address] [place] Electrician Third: Yaya Alvarez M.D.,PhD Bilirubin [Mass/Vol] 0.8 mg/dL Normal 0.2-1.2 [facility] Comment on above: Performed By: #### 7 600, 622, 6399, 59719, 83516 #### [facility] of [address], [address] [place], [place] [address] Electrician Third: Salvador Swanson MD #### 945 #### [facility]/[place] [id number] [facility] [place] Electrician Third: Yaya Alvarez M.D.,PhD Calcium [Mass/Vol] 9.1 mg/dL Normal 8.6-10.2 [facility] Comment on above: Performed By: #### 7 600, 622, 6399, 36473, 82752 #### [facility] of [address], [address] [place] [address] Electrician Third: Salvador Swanson MD #### 945 #### [facility]/[place] [id number] [facility] [place] Electrician Third: Yaya Alvarez M.D.,PhD Chloride [Moles/Vol] 103 mmol/L Normal 98-110 [facility] Comment on above: Performed By: #### 7 600, 622, 6399, 91226, 99014 #### [facility] [place] [address] Electrician Third: Salvador Swanson MD #### 945 #### [facility]/[address] [place] Electrician Third: Yaya Alvarez M.D.,PhD CO2 [Moles/Vol] 24 mmol/L Normal 20-32 [facility] Comment on above: Performed By: #### 7 600, 622, 6399, 64172, 14669 #### [facility] [place] [address] Electrician Third: Salvador Swanson MD #### 945 #### [facility] [address] [facility] [place] Electrician Third: Yaya Alvarez M.D.,PhD Creatinine [Mass/Vol] 0.68 mg/dL Normal 0.50-0.[address] [facility] Comment on above: Performed By: #### 7 600, 622, 6399, 04547, 60651 #### [facility] of [address] [place] [address] Electrician Third: Salvador Swanson MD #### 945 #### [facility]/[address] [place] Electrician Third: Yaya Alvarez M.D.,PhD ELECTROLYTE BALANCE 11 mmol/L (calc) Normal 7-17 [facility] Comment on above: Performed By: #### 7 600, 622, 6399, 75633, 12670 #### [facility] [place] [address] Electrician Third: Salvador Swanson MD #### 945 #### [facility] [place] Electrician Third: Yaya Alvarez M.D.,PhD GFR/1.73 sq M.predicted among non-blacks MDRD (S/P/Bld) [Vol rate/Area] 116 mL/min/{1.73_m2} Normal > OR = 60 [facility] Comment on above: Performed By: #### 7 600, 622, 6399, 94414, 43077 #### [facility] [place] [address] Electrician Third: Salvador Swanson MD #### 945 #### [facility] [place] Electrician Third: Yaya Alvarez M.D.,PhD Glucose [Mass/Vol] 112 mg/dL High 65-99 [facility] Comment on above: Result Comment: Fasting reference interval For someone without known diabetes, a glucose value between 100 and 125 mg/dL is consistent with prediabetes and should be confirmed with a follow-up test. Performed By: #### 7 600, 622, 6399, 86985, 94739 #### [facility] [address], [address] [place] [address] Electrician Third: Salvador Swanson MD #### 945 #### [facility] [address] [facility] [place] Electrician Third: Yaya Alvarez M.D.,PhD Potassium [Moles/Vol] 4.0 mmol/L Normal 3.5-5.[address] [facility] [address] [facility] Comment on above: Performed By: #### 7 600, 622, 6399, 36897, 14412 #### [facility] of [place] [id number] Electrician Third: Salvador Swanson MD #### 945 #### [facility] [place] Electrician Third: Yaya Alvarez M.D.,PhD Protein [Mass/Vol] 7.4 g/dL Normal 6.1-8.1 [facility] Comment on above: Performed By: #### 7 600, 622, 6399, 36820, 50754 #### [facility] of [place] [address] Electrician Third: Salvador Swanson MD #### 945 #### [facility] [place] Electrician Third: Yaya Alvarez M.D.,PhD Sodium [Moles/Vol] 138 mmol/L Normal 135-146 [facility] Comment on above: Performed By: #### 7 600, 622, 6399, 91586, 36312 #### [facility] of [place] [address] Electrician Third: Salvador Swanson MD #### 945 #### [facility] [place] Electrician Third: Yaya Alvarez M.D.,PhD Urea nitrogen [Mass/Vol] 10 mg/dL Normal 7-25 [facility] Comment on above: Performed By: #### 7 600, 622, 6399, 52002, 77468 #### [facility] of [address], [address] [place], [place] [address] Electrician Third: Salvador Swanson MD #### 945 #### [facility] [address] [facility] [place] Electrician Third: Yaya Alvarez M.D.,PhD [facility]1c [facility] ([facility]/L) 7.7 mmol/L Normal [facility] Comment on above: Performed By: #### 1 759, 66665 #### [facility] of [address], [address] [place] [address] Electrician Third: Salvador Swanson MD HbA1c (Bld) [Mass fraction] [...] for children. Performed By: #### 1 759, 01141 #### [facility] [address], [address] [place] [address] Electrician Third: Salvador Swanson MD Magnesium [Mass/Vol] 140 mg/dL Normal [facility] Comment on above: Performed By: #### 1 759, 04681 #### [facility] [address], [address] [place] [address] Electrician Third: Salvador Swanson MD LIPID PANEL, [facility] Cholesterol [Mass/Vol] 218 mg/dL High <200 [facility] Comment on above: Order Comment: FASTI NG:YES FASTING: YES Performed By: #### 7 600, 622, 6399, 64883, 03339 #### [facility] [address], [address] Electrician Third: Salvador Swanson MD #### 945 #### [facility] [address] [facility] [place] Electrician Third: Yaya Alvarez M.D.,PhD Cholesterol in HDL [Mass/Vol] 58 mg/dL Normal > OR = 50 [facility] Comment on above: Order Comment: FASTI NG:YES FASTING: YES Performed By: #### 7 600, 622, 6399, 87281, 33741 #### [facility] [address], [address] [place], [place] [address] Electrician Third: Salvador Swanson MD #### 945 #### [facility] [place] Electrician Third: Yaya Alvarez M.D.,PhD Cholesterol in LDL [Mass/Vol] 139 mg/dL High [facility] Comment on above: Order Comment: FASTI [...] LDL-C. Darren SS et al. ILIANA. 2013;310(19): 5428-2270 ([email or web address]) Performed By: #### 7 600, 622, 6399, 19658, 50282 #### [facility] [address], [address] [place], [place] [address] Electrician Third: Salvador Swanson MD #### 945 #### [facility] [address] [facility] [place] Electrician Third: Yaya Alvarez M.D.,PhD Cholesterol.total/Cho lesterol in HDL [Mass ratio] 3.8 {ratio} Normal <5.0 [facility] Comment on above: Order Comment: FASTI NG:YES FASTING: YES Performed By: #### 7 600, 622, 6399, 01852, 07977 #### [facility] [address], [address] [place] [address] Electrician Third: Salvador Swanson MD #### 945 #### [facility]/[place] [id number] [facility] [place] Electrician Third: Yaya Alvarez M.D.,PhD NON HDL CHOLESTEROL 160 mg/dL (calc) High <130 [facility] Comment on above: Order Comment: FASTI NG:YES FASTING: YES Result Comment: For patients with diabetes plus 1 major ASCVD risk factor, treating to a non-HDL-C goal of <100 mg/dL (LDL-C of <70 mg/dL) is considered a therapeutic option. Performed By: #### 7 600, 622, 6399, 56840, 76358 #### [facility] [address], [address] [place] [address] Electrician Third: Salvador Swanson MD #### 945 #### [facility]/[place] 7724725 [facility] [place] Electrician Third: Yaya Alvarez M.D.,PhD Triglyceride [Mass/Vol] 99 mg/dL Normal <150 [facility] Comment on above: Order Comment: FASTI NG:YES FASTING: YES Performed By: #### 7 600, 622, 6399, 32392, 94538 #### [facility] [address], [address] [place] [address] Electrician Third: Salvador Swanson MD #### 945 #### [facility]/[place] 7724725 [facility] [place] Electrician Third: Yaya Alvarez M.D.,PhD MAGNESIUMon 03-09-2025 Magnesium [Mass/Vol] 2.1 mg/dL Normal 1.5-2.5 [facility] Comment on above: Performed By: #### 7 600, 622, 6399, 04418, 48091 #### [facility] [place] [address] Electrician Third: Salvador Swanson MD #### 945 #### [facility] [address] [facility] [place] Electrician Third: Yaya Alvarez M.D.,PhD TSH W/REFLEX TO FT4on 2024 TSH W/REFLEX TO FT4 1.47 mIU/L Normal [facility] Comment on above: Result Comment: Refe rence Range > or = 20 Years 0.40-4.50 Ranges First trimester 0.26-2.66 Second trimester 0.55-2.73 Third trimester 0.43-2.91 Performed By: #### 7 600, 622, 6399, 59420, 33767 #### [facility] [place] [address] Electrician Third: Salvador Swanson MD #### 945 #### [facility] [address] [facility] [place] Electrician Third: Yaya Alvarez M.D.,PhD ZINC 03-09-2025 ZINC 58 mcg/dL Low 60-130 [facility] Comment on above: Result Comment: This test was developed and its analytical performance characteristics have been determined by [employer] [place], [place]. It has not been cleared or approved by the U.S. Food and Drug Administration. This assay has been validated pursuant to the CLIA regulations and is used for clinical purposes. Performed By: #### 7 600, 622, 6399, 81260, 04919 #### [facility] [place] [address] Electrician Third: Salvador Swanson MD #### 945 #### [facility]/[place] [id number] [facility] [place] [address] Electrician Third: Yaya Alvarez M.D.,PhD MR/BMS.BPon 03-05-2025 MR/BMS.BP Normal [facility] Glucose Test strip manual (B ld) [Mass/Vol]on 03-01-2025 Glucose [Mass/Vol] 105 mg/dL High 74 - 99 mg/dL [facility] Interpretation and review of laboratory results Abnormal [facility] Glucose [Mass/Vol] 105 mg/dL High 74-99 [facility] Comment on above: Performed By: #### 3 5255-9 #### QUIN Simon ([id number]) [facility] ([facility]) [address] [place] [address] MR/BMS.BPon 02-24-2025 MR/BMS.BP Normal [facility] MR/BMS.BPon 02-19-2025 MR/BMS.BP Normal [facility] CBC W Auto Differential pane l (Bld)on 02-16-2025 Basophils (Bld) [#/Vol] 0.08 10*3/uL [facility] Basophils/100 WBC (Bld) 0.7 % 0.0 - 2.0 % [facility] Eosinophils (Bld) [#/Vol] 0.01 10*3/uL [facility] Eosinophils/100 WBC (Bld) 0.1 % 0.0 - 6.0 % [facility] Erythrocyte distribution width (RBC) [Ratio] 13.4 % 11.5 - 14.5 % [facility] Hematocrit (Bld) [Volume fraction] 35.2 % Low 36.0 - 46.0 % [facility] Hemoglobin (Bld) [Mass/Vol] 11 g/dL Low 12.0 - 16.0 g/dL [facility] Immature granulocytes (Bld) [#/Vol] 0.3 10*3/uL [facility] Immature granulocytes/100 WBC (Bld) 2.8 % High 0.0 - 0.9 % [facility] Comment on above: Immature Granulocyte Count (IG) includes promyelocytes, myelocytes and metamyelocytes but does not include bands. Percent differential counts (%) should be interpreted in the context of the absolute cell counts (cells/UL). Interpretation and review of laboratory results Abnormal [facility] Lymphocytes (Bld) [#/Vol] 2.35 10*3/uL [facility] Lymphocytes/100 WBC (Bld) 22 % 13.0 - 44.0 % [facility] MCH (RBC) [Entitic mass] 27.2 pg 26.0 - 34.0 pg [facility] MCHC (RBC) [Mass/Vol] 31.3 g/dL Low 32.0 - 36.0 g/dL [facility] MCV (RBC) [Entitic vol] 87 fL 80 - 100 fL [facility] Monocytes (Bld) [#/Vol] 0.59 10*3/uL [facility] Monocytes/100 WBC (Bld) 5.5 % 2.0 - 10.0 % [facility] Neutrophils (Bld) [#/Vol] 7.34 10*3/uL [facility] Comment on above: Percent differential counts (%) should be interpreted in the context of the absolute cell counts (cells/uL). Neutrophils/100 WBC (Bld) 68.9 % 40.0 - 80.0 % [facility] Nucleated RBC/100 WBC (Bld) [Ratio] 0 % [facility] Platelets (Bld) [#/Vol] 314 10*3/uL [facility] RBC (Bld) [#/Vol] 4.05 10*6/uL [facility] WBC (Bld) [#/Vol] 10.7 10*3/uL [facility] Basophils (Bld) [#/Vol] 0.08 x10*3/uL Normal 0.00-0.[address] [facility] Comment on above: Performed By: #### 3 5255-9 #### QUIN Simon ([id number]) [facility] ([facility]) [address] [place] [address] Basophils/100 WBC (Bld) 0.7 % Normal 0.0-2.[address] [facility] Comment on above: Performed By: #### 3 5255-9 #### QUIN Simon ([id number]) [facility] ([facility]) [address] [place] [address] Eosinophils (Bld) [#/Vol] 0.01 x10*3/uL Normal 0.00-0.[address] [facility] Comment on above: Performed By: #### 3 5255-9 #### QUIN Simon ([id number]) [facility] ([facility]) [address] [place] [address] Eosinophils/100 WBC (Bld) 0.1 % Normal 0.0-6.[address] [facility] Comment on above: Performed By: #### 3 5255-9 #### QUIN Simon ([id number]) [facility] ([facility]) [address] [place] [address] Erythrocyte distribution width (RBC) [Ratio] 13.4 % Normal 11.5-14.[address] [facility] Comment on above: Performed By: #### 3 5255-9 #### QUIN Simon ([id number]) [facility] ([facility]) [address] [place] [address] Hematocrit (Bld) [Volume fraction] 35.2 % Low 36.0-46.[address] [facility] Comment on above: Performed By: #### 3 5255-9 #### QUIN Simon ([id number]) [facility] ([facility]) [address] [place] [address] Hemoglobin (Bld) [Mass/Vol] 11.0 g/dL Low 12.0-16.[address] [facility] Comment on above: Performed By: #### 3 5255-9 #### QUIN Simon ([id number]) [facility] ([facility]) [address] [place] [address] Immature granulocytes (Bld) [#/Vol] 0.30 x10*3/uL Normal 0.00-0.[address] [facility] Comment on above: Performed By: #### 3 5255-9 #### QUIN Simon ([id number]) [facility] ([facility]) [id number] [place] [address] Immature granulocytes/100 WBC (Bld) 2.8 % High 0.0-0.[address] [facility] Comment on above: Result Comment: Gayla ture Granulocyte Count (IG) includes promyelocytes, myelocytes and metamyelocytes but does not include bands. Percent differential counts (%) should be interpreted in the context of the absolute cell counts (cells/UL). Performed By: #### 3 5255-9 #### QUIN Simon ([id number]) [facility] ([facility]) [address] [place] [address] Lymphocytes (Bld) [#/Vol] 2.35 x10*3/uL Normal 1.20-4.[address] [facility] Comment on above: Performed By: #### 3 5255-9 #### QUIN Simon ([id number]) [facility] ([facility]) [address] [place] [address] Lymphocytes/100 WBC (Bld) 22.0 % Normal 13.0-44.[address] [facility] Comment on above: Performed By: #### 3 5255-9 #### QUIN Simon ([id number]) [facility] ([facility]) [address] [place] [address] MCH (RBC) [Entitic mass] 27.2 pg Normal 26.0-34.[address] [facility] Comment on above: Performed By: #### 3 5255-9 #### QUIN Simon ([id number]) [facility] ([facility]) [address] [place] [address] MCHC (RBC) [Mass/Vol] 31.3 g/dL Low 32.0-36.0 [facility] Comment on above: Performed By: #### 3 5255-9 #### QUIN Simon ([id number]) [facility] ([facility]) [id number] [place] [address] MCV (RBC) [Entitic vol] 87 fL Normal 80-[address] [facility] Comment on above: Performed By: #### 3 5255-9 #### QUIN Simon ([id number]) [facility] ([facility]) [address] [place] [address] Monocytes (Bld) [#/Vol] 0.59 x10*3/uL Normal 0.10-1.[address] [facility] Comment on above: Performed By: #### 3 5255-9 #### QUIN Simon ([id number]) [facility] ([facility]) [address] [place] [address] Monocytes/100 WBC (Bld) 5.5 % Normal 2.0-10.[address] [facility] Comment on above: Performed By: #### 3 5255-9 #### QUIN Simon ([id number]) [facility] ([facility]) [id number] [place] [address] [address] Neutrophils (Bld) [#/Vol] 7.34 x10*3/uL Normal 1.20-7.[address] [facility] Comment on above: Result Comment: Perc ent differential counts (%) should be interpreted in the context of the absolute cell counts (cells/uL). Performed By: #### 3 5255-9 #### QUIN Simon ([id number]) [facility] ([facility]) [address] [place] [address] Neutrophils/100 WBC (Bld) 68.9 % Normal 40.0-80.[address] [facility] Comment on above: Performed By: #### 3 5255-9 #### QUIN Simon ([id number]) [facility] ([facility]) [address] [place] [address] Nucleated RBC/100 WBC (Bld) [Ratio] 0.0 /100 WBCs Normal 0.0-0.[address] [facility] Comment on above: Performed By: #### 3 5255-9 #### QUIN Simon ([id number]) [facility] ([facility]) [address] [place] [address] Platelets (Bld) [#/Vol] 314 x10*3/uL Normal 150-[address] [facility] Comment on above: Performed By: #### 3 5255-9 #### QUIN HARTMAN L ([id number]) [facility] ([facility]) [address] [place] [address] RBC (Bld) [#/Vol] 4.05 x10*6/uL Normal 4.00-5.20 [facility] Comment on above: Performed By: #### 3 5255-9 #### QUIN HARTMAN L ([id number]) [facility] ([facility]) [address] [place] [address] WBC (Bld) [#/Vol] 10.7 x10*3/uL Normal 4.4-11.3 [facility] Comment on above: Performed By: #### 3 5255-9 #### QUIN HARTMAN L ([id number]) [facility] ([facility]) [id number] [place] [address] [place] AbdomenOrdered By: Eladio Matthews on 02-16-2025 [facility] Work Phone: Radiology Study observation (narrative) [facility] Work Phone: Glucose Test strip manual (B ld) [Mass/Vol]on 02-13-2025 Glucose [Mass/Vol] 125 mg/dL High 74 - 99 mg/dL [facility] Interpretation and review of laboratory results Abnormal [facility] Rubella virus IgG IA Qnon Rubella virus IgG IA Ql Positive Negative [facility] Work Phone: Rubella virus IgG Qn (S) 1.5 [IU]/mL <=0.7 IA IA [facility] Work Phone: NEGATIVE: No IgG antibodies [...] Rubella through infection or vaccination. [facility] Work Phone: [facility] Work Phone: Rubella virus IgG IA Ql Positive Normal Negative [facility] Comment on above: Order Comment: The b eta-hydroxybutyrate test performance characteristics have been validated by [facility]. This test has not been approved by the FDA; however such approval is not necessary. Performed By: #### 3 5255-9 #### QUIN Simon ([id number]) [facility] ([facility]) [address] [place] [address] Rubella virus IgG Qn (S) 1.5 IA Normal <=0.[address] [facility] Comment on above: Order Comment: The b eta-hydroxybutyrate test performance characteristics have been validated by [facility]. This test has not been approved by the FDA; however such approval is not necessary. Performed By: #### 3 5255-9 #### QUIN Simon ([id number]) [facility] ([facility]) [address] [place] [address] Glucose Test strip manual (B ld) [Mass/Vol]on 02-12-2025 Glucose [Mass/Vol] 125 mg/dL High 74-99 [facility] Comment on above: Performed By: #### 3 5255-9 #### QUIN Simon ([id number]) [facility] ([facility]) [address] [place] [address] Glucose [Mass/Vol] 101 mg/dL High 74 - 99 mg/dL [facility] Interpretation and review of laboratory results Abnormal [facility] Glucose [Mass/Vol] 101 mg/dL High 74-99 [facility] Comment on above: Performed By: #### 3 5255-9 #### QUIN Simon ([id number]) [facility] ([facility]) [address] [place] [address] 37655 HBV surface Ag IA Qlon 02-12 Interpretation and review of laboratory results Normal [facility] HIV 1+2 Ab+HIV1 p24 Ag IA Ql on 02-12-2025 Interpretation and review of laboratory results Normal [facility] HIV Ag/Ab screen is performed using the Siemens [employer] HIV Ag/Ab Combo assay which detects the presence of HIV p24 antigen as well as antibodies to HIV-1 (Group M and O) and HIV-2. No laboratory evidence of HIV infection. If acute HIV infection is suspected, consider testing for HIV RNA by PCR (viral load). [facility] HIV 1/2 Antigen/Antibody Scr een with Reflex to Confirmationon 02-12-2025 HIV 1+2 Ab+HIV1 p24 Ag IA Ql Non-Reactive Nonreactive [facility] Hepatitis B surface antigeno n 02-12-2025 HBV surface Ag IA Ql Non-Reactive Nonreactive [facility] Comment on above: Biotin interference may cause falsely decreased results. Patients taking a Biotin dose of up to 5 mg/day should refrain from taking Biotin for 24 hours before sample collection. Providers may contact their local laboratory for further information. Rubella virus IgG IA QnOrder ed By: Naya Khan on 02-12-2025 Rubella virus IgG IA Ql Positive Negative [facility] Rubella virus IgG Qn (S) 1.5 [IU]/mL <=0.7 IA IA [facility] NEGATIVE: No IgG antibodies specific to [...] exposed to Rubella through infection or vaccination. [facility] Streptococcus.beta-hemolytic Org specific cx Ql (Genital specimen)Ordered By: Micheline Sutton on 02-12-2025 Interpretation and review of laboratory results Abnormal [facility] S. agalactiae Org specific cx Ql (Genital specimen) Isolated: Streptococcus agalactiae (Group B Streptococcus) Abnormal [facility] Streptococcus agalac tiae (Group B Streptococcus) is universally susceptible to beta-lactam antibiotics and vancomycin. Routine susceptibility testing not performed. For penicillin allergic patients, please contact the laboratory within 5 days of collection at to request susceptibility testing. [facility] Blood type and Indirect anti body screen panel (Bld)on 02-11-2025 ABO group Nom (Bld) O [facility] Blood group antibody screen Ql Negative [facility] D Ag Ql (Bld) Positive [facility] ABO group Nom (Bld) O Normal [facility] Comment on above: Performed By: #### 1 4804-9 #### QUIN Simon ([id number]) [facility] ([facility]) [address] [place] [address] Blood group antibody screen Ql Negative [facility] Comment on above: Performed By: #### 1 4804-9 #### QUIN Smion ([id number]) [facility] ([facility]) [address] [place] [address]881 D Ag Ql (Bld) Positive [facility] Comment on above: Performed By: #### 1 4804-9 #### QUIN Simon ([id number]) [facility] ([facility]) [address] [place] [address] 64057 Glucose Test strip manual (B ld) [Mass/Vol]on 02-11-2025 Glucose [Mass/Vol] 110 mg/dL High 74 - 99 mg/dL [facility] Interpretation and review of laboratory results Abnormal [facility] Glucose [Mass/Vol] 110 mg/dL High 74-99 [facility] Comment on above: Performed By: #### 3 5255-9 #### QUIN Simon ([id number]) [facility] ([facility]) [address] [place] [address] 36921 Glucose [Mass/Vol] 96 mg/dL 74 - 99 mg/dL [facility] Interpretation and review of laboratory results Normal [facility] Glucose [Mass/Vol] 96 mg/dL Normal 74-99 [facility] Comment on above: Performed By: #### 3 5255-9 #### QUIN Simon ([id number]) [facility] ([facility]) [address] [place] [address] 29377 Glucose [Mass/Vol] 66 mg/dL Low 74 - 99 mg/dL [facility] Interpretation and review of laboratory results Abnormal [facility] Glucose [Mass/Vol] 66 mg/dL Low 74-99 [facility] Comment on above: Performed By: #### 1 4804-9 #### QUIN Simon ([id number]) [facility] ([facility]) [address] [place] [address] 85607 Glucose [Mass/Vol] 72 mg/dL Low 74 - 99 mg/dL [facility] Interpretation and review of laboratory results Abnormal [facility] Glucose [Mass/Vol] 72 mg/dL Low 74-99 [facility] Comment on above: Performed By: #### 1 4804-9 #### QUIN Simon ([id number]) [facility] ([facility]) [address] [place] [address]01 Glucose [Mass/Vol] 113 mg/dL High 74 - 99 mg/dL [facility] Interpretation and review of laboratory results Abnormal [facility] Glucose [Mass/Vol] 113 mg/dL High 74-99 [facility] Comment on above: Performed By: #### 1 4804-9 #### QUIN Simon ([id number]) [facility] ([facility]) [address] [place] [address] 74687 Glucose [Mass/Vol] 126 mg/dL High 74 - 99 mg/dL [facility] Interpretation and review of laboratory results Abnormal [facility] Glucose [Mass/Vol] 126 mg/dL High 74-99 [facility] Comment on above: Performed By: #### 1 4804-9 #### QUIN Simon ([id number]) [facility] ([facility]) [address] [place] [address] 78361 Glucose [Mass/Vol] 142 mg/dL High 74 - 99 mg/dL [facility] Interpretation and review of laboratory results Abnormal [facility] Glucose [Mass/Vol] 142 mg/dL High 74-99 [facility] Comment on above: Performed By: #### 1 4804-9 #### QUIN Simon ([id number]) [facility] ([facility]) [address] [place] [address] 62298 Glucose [Mass/Vol] 154 mg/dL High 74 - 99 mg/dL [facility] Interpretation and review of laboratory results Abnormal [facility] Glucose [Mass/Vol] 154 mg/dL High 74-99 [facility] Comment on above: Performed By: #### 1 4804-9 #### QUIN Simon ([id number]) [facility] ([facility]) [address] [place] [address] 24903 Prepare RBC: 1 Unitson 02-11 Blood Expiration Date 03/07/2025 11:59:00 PM EDT [facility] PRODUCT BLOOD TYPE 5100 [facility] PRODUCT CODE [id number] [facility] Unit ABO O [facility] Unit Number [id number] [facility] RH Positive [facility] UNIT VOLUME 279 [facility] XM [employer] COMP [facility] Glucose Test strip manual (B ld) [Mass/Vol]on 02-10-2025 Glucose [Mass/Vol] 138 mg/dL High 74 - 99 mg/dL [facility] Interpretation and review of laboratory results Abnormal [facility] Glucose [Mass/Vol] 138 mg/dL High 74-99 [facility] Comment on above: Performed By: #### 1 4804-9 #### QUIN Simon ([id number]) [facility] ([facility]) [address] [place] [address] 90324 Glucose [Mass/Vol] 101 mg/dL High 74 - 99 mg/dL [facility] Interpretation and review of laboratory results Abnormal [facility] Glucose [Mass/Vol] 101 mg/dL High 74-99 [facility] Comment on above: Performed By: #### 1 4804-9 #### QUIN Simon ([id number]) [facility] ([facility]) [address] [place] [address] 38007 Glucose [Mass/Vol] 124 mg/dL High 74 - 99 mg/dL [facility] Interpretation and review of laboratory results Abnormal [facility] Glucose [Mass/Vol] 124 mg/dL High 74-99 [facility] Comment on above: Performed By: #### 2 4323-8 #### QUIN Simon ([id number]) [facility] ([facility]) [address] [place] [address] 81912 Glucose [Mass/Vol] 157 mg/dL High 74 - 99 mg/dL [facility] Interpretation and review of laboratory results Abnormal [facility] Glucose [Mass/Vol] 157 mg/dL High 74-99 [facility] Comment on above: Performed By: #### 2 4323-8 #### QUIN Simon ([id number]) [facility] ([facility]) [address] [place] [address] 74187 No Panel Informationon 02-10 There is no [...] no significant focal stenosis or aneurysm. The ogpv-bl-pflwqa intracranial MRV is within normal limits without evidence of venous sinus thrombosis. MACRO: None. Signed by: Ranjan Trivedi 02/10/2025 5:28 AM Dictation workstation: [id number] [id number] Interpreted By: Ranjan Root, STUDY: MR BRAIN WO IV CONTRAST; MR ANGIO HEAD WO IV CONTRAST; MR VENOGRAPHY INTRACRANIAL WO IV CONTRAST; 02/10/2025 5:02 am INDICATION: Signs/Symptoms:intractabl e headache, sPEC; Signs/Symptoms:intractabl e NIELSEN, sPEC. COMPARISON: None. ACCESSION NUMBER(S): [id number]; [id number]; [id number] ORDERING CLINICIAN: CLAIR JORGENSEN TECHNIQUE: Axial diffusion, axial T2, axial FLAIR, axial gradient echo T2, coronal T1, and sagittal T1 weighted MRI images of the brain were obtained without intravenous contrast administration. In addition, zzvp-na-ibtpva MRA and MRV images of the intracranial [...] no significant focal stenosis or aneurysm. The gijc-bk-jzaxmt intracranial MRV is within normal limits without evidence of venous sinus thrombosis. [facility] Ranjan Trivedi M D - 02/10/2025 Interpreted By: Ranjan Trivedi, STUDY: MR BRAIN WO IV CONTRAST; MR ANGIO HEAD WO IV CONTRAST; MR VENOGRAPHY INTRACRANIAL WO IV CONTRAST; 02/10/2025 5:02 am INDICATION: Signs/Symptoms:intractabl e headache, sPEC; Signs/Symptoms:intractabl e NIELSEN, sPEC. COMPARISON: None. ACCESSION NUMBER(S): [id number]; [id number]; [id number] ORDERING CLINICIAN: CLAIR JORGENSEN TECHNIQUE: Axial diffusion, axial T2, axial FLAIR, axial gradient echo T2, coronal T1, and sagittal T1 weighted MRI images of the brain were obtained without intravenous contrast administration. In addition, uhyq-ho-bkdoqd MRA and MRV images of the intracranial [...] no significant focal stenosis or aneurysm. The wote-nc-iegzox intracranial MRV is within normal limits without [...] no significant focal stenosis or aneurysm. The kuav-mk-tunypi intracranial MRV is within normal limits without evidence of venous sinus thrombosis. MACRO: None. Signed by: Ranjan Trivedi 02/10/2025 5:28 AM Dictation workstation: [id number] [facility] Work Phone: Radiology Study observation (narrative) [facility] Work Phone: No Panel InformationOrdered By: Ranjan Trivedi on 02-10-2025 [facility] Work Phone: CBC panel Auto (Bld)on 02-09 Erythrocyte distribution width (RBC) [Ratio] 13.4 % 11.5 - 14.5 % [facility] Hematocrit (Bld) [Volume fraction] 34.8 % Low 36.0 - 46.0 % [facility] Hemoglobin (Bld) [Mass/Vol] 10.6 g/dL Low 12.0 - 16.0 g/dL [facility] Interpretation and review of laboratory results Abnormal [facility] MCH (RBC) [Entitic mass] 28 pg 26.0 - 34.0 pg [facility] MCHC (RBC) [Mass/Vol] 30.5 g/dL Low 32.0 - 36.0 g/dL [facility] MCV (RBC) [Entitic vol] 92 fL 80 - 100 fL [facility] Nucleated RBC/100 WBC (Bld) [Ratio] 0 % [facility] Platelets (Bld) [#/Vol] 265 10*3/uL [facility] RBC (Bld) [#/Vol] 3.78 10*6/uL Low [facility] WBC (Bld) [#/Vol] 18.5 10*3/uL High [facility] Erythrocyte distribution width (RBC) [Ratio] 13.4 % Normal 11.5-14.[address] [facility] Comment on above: Performed By: #### 2 4323-8 #### QUIN Siomn ([id number]) [facility] ([facility]) [address] [place] [address] 60892 Hematocrit (Bld) [Volume fraction] 34.8 % Low 36.0-46.[address] [facility] Comment on above: Performed By: #### 2 4323-8 #### QUIN Simon ([id number]) [facility] ([facility]) [address] [place] [address] 00412 Hemoglobin (Bld) [Mass/Vol] 10.6 g/dL Low 12.0-16.[address] [facility] Comment on above: Performed By: #### 2 4323-8 #### QUIN Simon ([id number]) [facility] ([facility]) [address] [place] [address] 21452 MCH (RBC) [Entitic mass] 28.0 pg Normal 26.0-34.[address] [facility] Comment on above: Performed By: #### 2 4323-8 #### QUIN Simon ([id number]) [facility] ([facility]) [address] [place] [address] 39456 MCHC (RBC) [Mass/Vol] 30.5 g/dL Low 32.0-36.0 [facility] Comment on above: Performed By: #### 2 4323-8 #### QUIN Simon ([id number]) [facility] ([facility]) [address] [place] [address] 67934 MCV (RBC) [Entitic vol] 92 fL Normal 80-[address] [facility] Comment on above: Performed By: #### 2 4323-8 #### QUIN Simon ([id number]) [facility] ([facility]) [address] [place] [address] 39162 Nucleated RBC/100 WBC (Bld) [Ratio] 0.0 /100 WBCs Normal 0.0-0.[address] [facility] Comment on above: Performed By: #### 2 4323-8 #### QUIN Simon ([id number]) [facility] ([facility]) [address] [place] [address] 34792 Platelets (Bld) [#/Vol] 265 x10*3/uL Normal 150-[address] [facility] Comment on above: Performed By: #### 2 4323-8 #### QUIN Simon ([id number]) [facility] ([facility]) [address] [place] [address] 02498 RBC (Bld) [#/Vol] 3.78 x10*6/uL Low 4.00-5.20 [facility] Comment on above: Performed By: #### 2 4323-8 #### QUIN Simon ([id number]) [facility] ([facility]) [address] [place] [address] 93564 WBC (Bld) [#/Vol] 18.5 x10*3/uL High 4.4-11.3 [facility] Comment on above: Performed By: #### 2 4323-8 #### QUIN Simon ([id number]) [facility] ([facility]) [address] [place] [address] 15741 Erythrocyte distribution width (RBC) [Ratio] 13.3 % 11.5 - 14.5 % [facility] Hematocrit (Bld) [Volume fraction] 35.4 % Low 36.0 - 46.0 % [facility] Hemoglobin (Bld) [Mass/Vol] 11.2 g/dL Low 12.0 - 16.0 g/dL [facility] Interpretation and review of laboratory results Abnormal [facility] MCH (RBC) [Entitic mass] 28.3 pg 26.0 - 34.0 pg [facility] MCHC (RBC) [Mass/Vol] 31.6 g/dL Low 32.0 - 36.0 g/dL [facility] MCV (RBC) [Entitic vol] 89 fL 80 - 100 fL [facility] Nucleated RBC/100 WBC (Bld) [Ratio] 0 % [facility] Platelets (Bld) [#/Vol] 266 10*3/uL [facility] RBC (Bld) [#/Vol] 3.96 10*6/uL Low [facility] WBC (Bld) [#/Vol] 19.1 10*3/uL High [facility] Erythrocyte distribution width (RBC) [Ratio] 13.3 % Normal 11.5-14.[address] [facility] Comment on above: Performed By: #### 2 4323-8 #### QUIN Simon ([id number]) [facility] ([facility]) [address] [place] [address] 30592 Hematocrit (Bld) [Volume fraction] 35.4 % Low 36.0-46.[address] [facility] Comment on above: Performed By: #### 2 4323-8 #### QUIN Simon ([id number]) [facility] ([facility]) [address] [place] [address] 92750 Hemoglobin (Bld) [Mass/Vol] 11.2 g/dL Low 12.0-16.[address] [facility] Comment on above: Performed By: #### 2 4323-8 #### QUIN Simon ([id number]) [facility] ([facility]) [address] [place] [address] 55300 MCH (RBC) [Entitic mass] 28.3 pg Normal 26.0-34.[address] [facility] Comment on above: Performed By: #### 2 4323-8 #### QUIN Simon ([id number]) [facility] ([facility]) [address] [place] [address] MCHC (RBC) [Mass/Vol] 31.6 g/dL Low 32.0-36.0 [facility] Comment on above: Performed By: #### 2 4323-8 #### QUIN Simon ([id number]) [facility] ([facility]) [address] [place] [address] 19934 MCV (RBC) [Entitic vol] 89 fL Normal 80-[address] [facility] Comment on above: Performed By: #### 2 4323-8 #### QUIN Simon ([id number]) [facility] ([facility]) [address] [place] [address] 73932 Nucleated RBC/100 WBC (Bld) [Ratio] 0.0 /100 WBCs Normal 0.0-0.[address] [facility] Comment on above: Performed By: #### 2 4323-8 #### QUIN Simon ([id number]) [facility] ([facility]) [address] [place] [address] 45225 Platelets (Bld) [#/Vol] 266 x10*3/uL Normal 150-[address] [facility] Comment on above: Performed By: #### 2 4323-8 #### QUIN Simon ([id number]) [facility] ([facility]) [address] [place] [address] RBC (Bld) [#/Vol] 3.96 x10*6/uL Low 4.00-5.20 [facility] Comment on above: Performed By: #### 2 4323-8 #### QUIN Simon ([id number]) [facility] ([facility]) [address] [place] [address] 67549 WBC (Bld) [#/Vol] 19.1 x10*3/uL High 4.4-11.3 [facility] Comment on above: Performed By: #### 2 4323-8 #### QUIN Simon ([id number]) [facility] ([facility]) [address] [place] [address] Comprehensive metabolic 2000 panelon 02-09-2025 Albumin BCP dye [Mass/Vol] 3.1 g/dL Low 3.4 - 5.0 g/dL [facility] ALP [Catalytic activity/Vol] 80 U/L 33 - 110 U/L [facility] ALT With P-5'-P [Catalytic activity/Vol] 6 U/L Low 7 - 45 U/L [facility] Comment on above: Patients treated wit h Sulfasalazine may generate falsely decreased results for ALT. Anion gap [Moles/Vol] 16 mmol/L 10 - 2 0 mmol/L [facility] AST With P-5'-P [Catalytic activity/Vol] 18 U/L 9 - 39 U/L [facility] Comment on above: MILD HEMOLYSIS DETEC STEFF. The result may be falsely elevated due to hemolysis or other interferents. Clinical correlation is recommended. Repeat testing may be considered. Bilirubin [Mass/Vol] 0.6 mg/dL 0.0 - 1 .2 mg/dL [facility] Calcium [Mass/Vol] 8 mg/dL Low 8.6 - 10. 6 mg/dL [facility] Chloride [Moles/Vol] 106 mmol/L 98 - 10 7 mmol/L [facility] CO2 [Moles/Vol] 17 mmol/L Low 21 - 32 mmol/L [facility] Creatinine [Mass/Vol] 0.54 mg/dL 0.50 - 1.05 mg/dL [facility] eGFR - PINF [facility] Comment on above: Calculations of zoya mated GFR are performed using the 2020 CKD-EPI Study Refit equation without the race variable for the IDMS-Traceable creatinine methods. https://jasn.asnjournals.org/content//ASN.390727 9976 Glucose [Mass/Vol] 113 mg/dL High 74 - 99 mg/dL [facility] Interpretation and review of laboratory results Abnormal [facility] [facility] Potassium [Moles/Vol] 4.1 mmol/L 3.5 - 5.3 mmol/L [facility] Comment on above: MILD HEMOLYSIS DETEC STEFF. The result may be falsely elevated due to hemolysis or other interferents. Clinical correlation is recommended. Repeat testing may be considered. Protein [Mass/Vol] 6 g/dL Low 6.4 - 8.2 g/dL [facility] Sodium [Moles/Vol] 135 mmol/L Low 136 - 145 mmol/L [facility] Urea nitrogen [Mass/Vol] 9 mg/dL 6 - 23 mg/dL [facility] Albumin BCP dye [Mass/Vol] 3.1 g/dL Low 3.4-5.[address] [facility] Comment on above: Performed By: #### 2 4323-8 #### QUIN Simon ([id number]) [facility] ([facility]) [address] [place] [address] ALP [Catalytic activity/Vol] 80 U/L Normal 33-[address] [facility] Comment on above: Performed By: #### 2 4323-8 #### QUIN HARTMAN L ([id number]) [facility] ([facility]) [address] [place] [address] 95310 ALT With P-5'-P [Catalytic activity/Vol] 6 U/L Low 7-[address] [facility] Comment on above: Result Comment: Nguyen ents treated with Sulfasalazine may generate falsely decreased results for ALT. Performed By: #### 2 4323-8 #### QUIN HARTMAN L ([id number]) [facility] ([facility]) [id number] [place] [address] 33522 Anion gap [Moles/Vol] 16 mmol/L Normal 10-20 [facility] Comment on above: Performed By: #### 2 4323-8 #### QUIN BERGMANMOTZER L ([id number]) [facility] ([facility]) [address] [place] [address] 79983 AST With P-5'-P [Catalytic activity/Vol] 18 U/L Normal 9-[address] [facility] Comment on above: Result Comment: MILD HEMOLYSIS DETECTED. The result may be falsely elevated due to hemolysis or other interferents. Clinical correlation is recommended. Repeat testing may be considered. Performed By: #### 2 4323-8 #### QUIN HARTMAN L ([id number]) [facility] ([facility]) [address] [place] [address] Bilirubin [Mass/Vol] 0.6 mg/dL Normal 0.0-1.2 [facility] Comment on above: Performed By: #### 2 4323-8 #### QUIN HARTMAN L ([id number]) [facility] ([facility]) [address] [place] [address] Calcium [Mass/Vol] 8.0 mg/dL Low 8.6-10.6 [facility] Comment on above: Performed By: #### 2 4323-8 #### QUIN HARTMAN L ([id number]) [facility] ([facility]) [address] [place] [address]396 Chloride [Moles/Vol] 106 mmol/L Normal 98-107 [facility] Comment on above: Performed By: #### 2 4323-8 #### QUIN HARTMAN L ([id number]) [facility] ([facility]) [address] [place] [address] CO2 [Moles/Vol] 17 mmol/L Low 21-32 [facility] Comment on above: Performed By: #### 2 4323-8 #### QUIN HARTMAN L ([id number]) [facility] ([facility]) [address] [place] [address] Creatinine [Mass/Vol] 0.54 mg/dL Normal 0.50-1.05 [facility] Comment on above: Performed By: #### 2 4323-8 #### QUIN BERGMANMOTZER L ([id number]) [facility] ([facility]) [address] [place] [address] 29181 GFR/1.73 sq M.predicted MDRD (S/P/Bld) [Vol rate/Area] mL/min/{1.73_m2} Normal >[address] [facility] Comment on above: Result Comment: Calc ulations of estimated GFR are performed using the 2020 CKD-EPI Study Refit equation without the race variable for the IDMS-Traceable creatinine methods. https://jasn.asnjournals.org/content//ASN.958848 8680 Performed By: #### 2 4323-8 #### QUIN LEVYTZER L ([id number]) [facility] ([facility]) [address] [place] [address] Glucose [Mass/Vol] 113 mg/dL High 74-99 [facility] Comment on above: Performed By: #### 2 4323-8 #### QUIN BERGMANMOTZER L ([id number]) [facility] ([facility]) [address] [place] [address] 38052 Potassium [Moles/Vol] 4.1 mmol/L Normal 3.5-5.3 [facility] Comment on above: Result Comment: MILD HEMOLYSIS DETECTED. The result may be falsely elevated due to hemolysis or other interferents. Clinical correlation is recommended. Repeat testing may be considered. Performed By: #### 2 4323-8 #### QUIN BERGMANMOTZER L ([id number]) [facility] ([facility]) [address] [place] [address] 17327 Protein [Mass/Vol] 6.0 g/dL Low 6.4-8.2 [facility] Comment on above: Performed By: #### 2 4323-8 #### QUIN BERGMANMOTZER L ([id number]) [facility] ([facility]) [address] [place] [address] 41456 Sodium [Moles/Vol] 135 mmol/L Low 136-145 [facility] Comment on above: Performed By: #### 2 4323-8 #### QUIN SCHMOTZER L ([id number]) [facility] ([facility]) [address] [place] [address] 57134 Urea nitrogen [Mass/Vol] 9 mg/dL Normal 6-[address] [facility] Comment on above: Performed By: #### 2 4323-8 #### QUIN SCHMOTZER L ([id number]) [facility] ([facility]) [address] [place] [address] Albumin BCP dye [Mass/Vol] 3.3 g/dL Low 3.4 - 5.0 g/dL [facility] ALP [Catalytic activity/Vol] 87 U/L 33 - 110 U/L [facility] ALT With P-5'-P [Catalytic activity/Vol] 7 U/L 7 - 45 U/L [facility] Comment on above: Patients treated wit h Sulfasalazine may generate falsely decreased results for ALT. Anion gap [Moles/Vol] 13 mmol/L 10 - 2 0 mmol/L [facility] AST With P-5'-P [Catalytic activity/Vol] 10 U/L 9 - 39 U/L [facility] Bilirubin [Mass/Vol] 0.4 mg/dL 0.0 - 1 .2 mg/dL [facility] Calcium [Mass/Vol] 8.5 mg/dL Low 8.6 - 10. 6 mg/dL [facility] Chloride [Moles/Vol] 105 mmol/L 98 - 10 7 mmol/L [facility] CO2 [Moles/Vol] 22 mmol/L 21 - 32 mmol/L [facility] Creatinine [Mass/Vol] 0.52 mg/dL 0.50 - 1.05 mg/dL [facility] eGFR - PINF [facility] Comment on above: Calculations of zoya mated GFR are performed using the 2020 CKD-EPI Study Refit equation without the race variable for the IDMS-Traceable creatinine methods. https://jasn.asnjournals.org/content//ASN.960467 8244 Glucose [Mass/Vol] 136 mg/dL High 74 - 99 mg/dL [facility] Interpretation and review of laboratory results Abnormal [facility] Potassium [Moles/Vol] 3.9 mmol/L 3.5 - 5.3 mmol/L [facility] Protein [Mass/Vol] 6.2 g/dL Low 6.4 - 8.2 g/dL [facility] Sodium [Moles/Vol] 136 mmol/L 136 - 145 mmol/L [facility] Urea nitrogen [Mass/Vol] 8 mg/dL 6 - 23 mg/dL [facility] Albumin BCP dye [Mass/Vol] 3.3 g/dL Low 3.4-5.[address] [facility] Comment on above: Performed By: #### 2 4323-8 #### QUIN Simon ([id number]) [facility] ([facility]) [address] [place] [address] 35263 ALP [Catalytic activity/Vol] 87 U/L Normal 33-[address] [facility] Comment on above: Performed By: #### 2 4323-8 #### QUIN Simon ([id number]) [facility] ([facility]) [address] [place] [address] 15401 ALT With P-5'-P [Catalytic activity/Vol] 7 U/L Normal 7-[address] [facility] Comment on above: Result Comment: Nguyen ents treated with Sulfasalazine may generate falsely decreased results for ALT. Performed By: #### 2 4323-8 #### QUIN Simon ([id number]) [facility] ([facility]) [address] [place] [address] 44367 Anion gap [Moles/Vol] 13 mmol/L Normal 10-20 [facility] Comment on above: Performed By: #### 2 4323-8 #### QUIN Simon ([id number]) [facility] ([facility]) [address] [place] [address] 39979 AST With P-5'-P [Catalytic activity/Vol] 10 U/L Normal 9-[address] [facility] Comment on above: Performed By: #### 2 4323-8 #### QUIN Simon ([id number]) [facility] ([facility]) [address] [place] [address] 26982 Bilirubin [Mass/Vol] 0.4 mg/dL Normal 0.0-1.2 [facility] Comment on above: Performed By: #### 2 4323-8 #### QUNI Simon ([id number]) [facility] ([facility]) [address] [place] [address] 88569 Calcium [Mass/Vol] 8.5 mg/dL Low 8.6-10.6 [facility] Comment on above: Performed By: #### 2 4323-8 #### QUIN Simon ([id number]) [facility] ([facility]) [address] [place] [address] Chloride [Moles/Vol] 105 mmol/L Normal 98-107 [facility] Comment on above: Performed By: #### 2 4323-8 #### QUIN Simon ([id number]) [facility] ([facility]) [address] [place] [address] CO2 [Moles/Vol] 22 mmol/L Normal 21-32 [facility] Comment on above: Performed By: #### 2 4323-8 #### QUIN Siomn ([id number]) [facility] ([facility]) [address] [place] [address] 55921 Creatinine [Mass/Vol] 0.52 mg/dL Normal 0.50-1.05 [facility] Comment on above: Performed By: #### 2 4323-8 #### QUIN Simon ([id number]) [facility] ([facility]) [address] [place] [address] GFR/1.73 sq M.predicted MDRD (S/P/Bld) [Vol rate/Area] mL/min/{1.73_m2} Normal >[address] [facility] Comment on above: Result Comment: Calc ulations of estimated GFR are performed using the 2020 CKD-EPI Study Refit equation without the race variable for the IDMS-Traceable creatinine methods. https://jasn.asnjournals.org/content/early//ASN.622636 3363 Performed By: #### 2 4323-8 #### QUIN Simon ([id number]) [facility] ([facility]) [address] [place] [address] Glucose [Mass/Vol] 136 mg/dL High 74-99 [facility] Comment on above: Performed By: #### 2 4323-8 #### QUIN Simon ([id number]) [facility] ([facility]) [address] [place] [address] 10493 Potassium [Moles/Vol] 3.9 mmol/L Normal 3.5-5.3 [facility] Comment on above: Performed By: #### 2 4323-8 #### QUIN Simon ([id number]) [facility] ([facility]) [address] [place] [address] 70556 Protein [Mass/Vol] 6.2 g/dL Low 6.4-8.2 [facility] Comment on above: Performed By: #### 2 4323-8 #### QUIN Simon ([id number]) [facility] ([facility]) [address] [place] [address] 65856 Sodium [Moles/Vol] 136 mmol/L Normal 136-145 [facility] Comment on above: Performed By: #### 2 4323-8 #### QUIN Simon ([id number]) [facility] ([facility]) [address] [place] [address] 25272 Urea nitrogen [Mass/Vol] 8 mg/dL Normal 6-[address] [facility] Comment on above: Performed By: #### 2 4323-8 #### QUIN Simon ([id number]) [facility] ([facility]) [address] [place] [address] 47296 HIV 1+2 Ab+HIV1 p24 Agon HIV 1+2 Ab+HIV1 p24 Ag IA Ql Non-Reactive Normal Nonreactive [facility] Comment on above: Order Comment: The b eta-hydroxybutyrate test performance characteristics have been validated by [facility]. This test has not been approved by the FDA; however such approval is not necessary. Performed By: #### 3 5255-9 #### QUIN Simon ([id number]) [facility] ([facility]) [address] [place] [address] 87049 MR ANGIO HEAD WO IV CONTRAST on 02-09-2025 MR ANGIO HEAD WO IV CONTRAST Interpreted By: Ranjan Trivedi, STUDY: MR BRAIN WO IV CONTRAST; MR ANGIO HEAD WO IV CONTRAST; MR VENOGRAPHY INTRACRANIAL WO IV CONTRAST; 02/10/2025 5:02 am INDICATION: Signs/Symptoms:intractabl e headache, sPEC; Signs/Symptoms:intractabl e NIELSEN, sPEC. COMPARISON: None. ACCESSION NUMBER(S): [id number]; [id number]; [id number] ORDERING CLINICIAN: CLAIR JORGENSEN TECHNIQUE: Axial diffusion, axial T2, axial FLAIR, axial gradient echo T2, coronal T1, and sagittal T1 weighted MRI images of the brain were obtained without intravenous contrast administration. In addition, frfp-uw-uarnkj MRA and MRV images of the intracranial [...] no significant focal stenosis or aneurysm. The bzou-jm-iqoayb intracranial MRV is within normal limits without [...] no significant focal stenosis or aneurysm. The hqcb-yt-todsxx intracranial MRV is within normal limits without evidence of venous sinus thrombosis. MACRO: None. Signed by: Ranjan Trivedi 02/10/2025 5:28 AM Dictation workstation: [id number] [facility] MR BRAIN WO IV CONTRASTon MR BRAIN WO IV CONTRAST Interpreted By: Ranjan Trivedi, STUDY: MR BRAIN WO IV CONTRAST; MR ANGIO HEAD WO IV CONTRAST; MR VENOGRAPHY INTRACRANIAL WO IV CONTRAST; 02/10/2025 5:02 am INDICATION: Signs/Symptoms:intractabl e headache, sPEC; Signs/Symptoms:intractabl e NIELSEN, sPEC. COMPARISON: None. ACCESSION NUMBER(S): [id number]; [id number]; [id number] ORDERING CLINICIAN: CLAIR JORGENSEN TECHNIQUE: Axial diffusion, axial T2, axial FLAIR, axial gradient echo T2, coronal T1, and sagittal T1 weighted MRI images of the brain were obtained without intravenous contrast administration. In addition, qcbo-om-rjkunm MRA and MRV images of the intracranial [...] no significant focal stenosis or aneurysm. The dxnt-zw-syszux intracranial MRV is within normal limits without [...] no significant focal stenosis or aneurysm. The ijsj-pq-qtklrv intracranial MRV is within normal limits without evidence of venous sinus thrombosis. MACRO: None. Signed by: Ranjan Trivedi 02/10/2025 5:28 AM Dictation workstation: [id number] [facility] MR VENOGRAPHY INTRACRANIAL W O IV CONTRASTon 02-09-2025 MR VENOGRAPHY INTRACRANIAL WO IV CONTRAST Interpreted By: Ranjan Trivedi, STUDY: MR BRAIN WO IV CONTRAST; MR ANGIO HEAD WO IV CONTRAST; MR VENOGRAPHY INTRACRANIAL WO IV CONTRAST; 02/10/2025 5:02 am INDICATION: Signs/Symptoms:intractabl e headache, sPEC; Signs/Symptoms:intractabl e NIELSEN, sPEC. COMPARISON: None. ACCESSION NUMBER(S): [id number]; [id number]; [id number] ORDERING CLINICIAN: CLAIR JORGENSEN TECHNIQUE: Axial diffusion, axial T2, axial FLAIR, axial gradient echo T2, coronal T1, and sagittal T1 weighted MRI images of the brain were obtained without intravenous contrast administration. In addition, imoi-tb-nwyipd MRA and MRV images of the intracranial [...] no significant focal stenosis or aneurysm. The flyg-ai-tkpjwf intracranial MRV is within normal limits without [...] no significant focal stenosis or aneurysm. The wfoe-jn-kxglst intracranial MRV is within normal limits without evidence of venous sinus thrombosis. MACRO: None. Signed by: Ranjan Trivedi 02/10/2025 5:28 AM Dictation workstation: [id number] Normal [facility] Rubella virus IgG IA Qnon Rubella virus IgG IA Ql Positive Normal Negative [facility] Comment on above: Order Comment: The b eta-hydroxybutyrate test performance characteristics have been validated by [facility]. This test has not been approved by the FDA; however such approval is not necessary. Performed By: #### 3 5255-9 #### QUIN Simon ([id number]) [facility] ([facility]) [id number] [place] [address] Rubella virus IgG Qn (S) 1.5 IA Normal <=0.[address] [facility] Comment on above: Order Comment: The b eta-hydroxybutyrate test performance characteristics have been validated by [facility]. This test has not been approved by the FDA; however such approval is not necessary. Performed By: #### 3 5255-9 #### QUIN Simon ([id number]) [facility] ([facility]) [address] [place] [address] Syphilis Screen with ReflexO rdered By: Alexandre Kenny on 02-09-2025 T. pallidum IgG+IgM IA Ql (S) Non-Reactive Nonreactive [facility] Comment on above: No significant level of Treponema pallidum antibody detected. Repeat testing in 2 to 4 weeks may be considered if early infection or incubating syphilis infection is suspected. T. pallidum IgG+IgM IA Ql (S )Ordered By: Alexandre Kenny on 02-09-2025 Interpretation and review of laboratory results Normal [facility] Beta hydroxybutyrate [Mass o r moles/Vol]on 02-08-2025 Beta hydroxybutyrate [Moles/Vol] 0.15 mmol/L 0.02 - 0.27 mmol/L [facility] The beta-hydroxybuty rate test performance characteristics have been validated by [facility]. This test has not been approved by the FDA; however such approval is not necessary. [facility] Beta hydroxybutyrate [Moles/Vol] 0.15 mmol/L Normal 0.02-0.[address] [facility] Comment on above: Order Comment: The b eta-hydroxybutyrate test performance characteristics have been validated by [facility]. This test has not been approved by the FDA; however such approval is not necessary. Performed By: #### 3 084-1 #### QUIN Simon ([id number]) [facility] ([facility]) [address] [place] [address] Blood type and Indirect anti body screen panel (Bld)on 02-08-2025 ABO group Nom (Bld) O [facility] Blood group antibody screen Ql Negative [facility] D Ag Ql (Bld) Positive [facility] ABO group Nom (Bld) O Normal [facility] Comment on above: Performed By: #### 3 084-1 #### QUIN Simon ([id number]) [facility] ([facility]) [address] [place] [address] Blood group antibody screen Ql Negative Normal [facility] Comment on above: Performed By: #### 3 084-1 #### QUIN Simon ([id number]) [facility] ([facility]) [address] [place] [address] D Ag Ql (Bld) Positive [facility] Comment on above: Performed By: #### 3 084-1 #### QUIN Simon ([id number]) [facility] ([facility]) [address] [place] [address] CBC panel Auto (Bld)on 02-08 Erythrocyte distribution width (RBC) [Ratio] 13.2 % 11.5 - 14.5 % [facility] Hematocrit (Bld) [Volume fraction] 36.6 % 36.0 - 46.0 % [facility] Hemoglobin (Bld) [Mass/Vol] 11.9 g/dL Low 12.0 - 16.0 g/dL [facility] Interpretation and review of laboratory results Abnormal [facility] MCH (RBC) [Entitic mass] 28.1 pg 26.0 - 34.0 pg [facility] MCHC (RBC) [Mass/Vol] 32.5 g/dL 32.0 - 36.0 g/dL [facility] MCV (RBC) [Entitic vol] 87 fL 80 - 100 fL [facility] Nucleated RBC/100 WBC (Bld) [Ratio] 0 % [facility] Platelets (Bld) [#/Vol] 297 10*3/uL [facility] RBC (Bld) [#/Vol] 4.23 10*6/uL [facility] WBC (Bld) [#/Vol] 15.8 10*3/uL [facility] Erythrocyte distribution width (RBC) [Ratio] 13.2 % Normal 11.5-14.[address] [facility] Comment on above: Performed By: #### 3 084-1 #### QUIN Simon ([id number]) [facility] ([facility]) [address] [place] [address] 15627 Hematocrit (Bld) [Volume fraction] 36.6 % Normal 36.0-46.[address] [facility] Comment on above: Performed By: #### 3 084-1 #### QUIN Simon ([id number]) [facility] ([facility]) [address] [place] [address] 89554 Hemoglobin (Bld) [Mass/Vol] 11.9 g/dL Low 12.0-16.[address] [facility] Comment on above: Performed By: #### 3 084-1 #### QUIN Simon ([id number]) [facility] ([facility]) [address] [place] [address] 18117 MCH (RBC) [Entitic mass] 28.1 pg Normal 26.0-34.[address] [facility] Comment on above: Performed By: #### 3 084-1 #### QIUN Simon ([id number]) [facility] ([facility]) [address] [place] [address] 49656 MCHC (RBC) [Mass/Vol] 32.5 g/dL Normal 32.0-36.0 [facility] Comment on above: Performed By: #### 3 084-1 #### QUIN Simon ([id number]) [facility] ([facility]) [address] [place] [address] 30977 MCV (RBC) [Entitic vol] 87 fL Normal 80-[address] [facility] Comment on above: Performed By: #### 3 084-1 #### QUIN Simon ([id number]) [facility] ([facility]) [address] [place] [address] 42040 Nucleated RBC/100 WBC (Bld) [Ratio] 0.0 /100 WBCs Normal 0.0-0.[address] [facility] Comment on above: Performed By: #### 3 084-1 #### QUIN Simon ([id number]) [facility] ([facility]) [address] [place] [address] Platelets (Bld) [#/Vol] 297 x10*3/uL Normal 150-[address] [facility] Comment on above: Performed By: #### 3 084-1 #### QUIN Simon ([id number]) [facility] ([facility]) [address] [place] [address] RBC (Bld) [#/Vol] 4.23 x10*6/uL Normal 4.00-5.20 [facility] Comment on above: Performed By: #### 3 084-1 #### QUIN Simon ([id number]) [facility] ([facility]) [address] [place] [address] WBC (Bld) [#/Vol] 15.8 x10*3/uL High 4.4-11.3 [facility] Comment on above: Performed By: #### 3 084-1 #### QUIN Simon ([id number]) [facility] ([facility]) [address] [place] [address] Comprehensive metabolic 2000 panelon 02-08-2025 Albumin BCP dye [Mass/Vol] 3.5 g/dL 3.4 - 5.0 g/dL [facility] ALP [Catalytic activity/Vol] 89 U/L 33 - 110 U/L [facility] ALT With P-5'-P [Catalytic activity/Vol] 7 U/L 7 - 45 U/L [facility] Comment on above: Patients treated wit h Sulfasalazine may generate falsely decreased results for ALT. Anion gap [Moles/Vol] 13 mmol/L 10 - 2 0 mmol/L [facility] AST With P-5'-P [Catalytic activity/Vol] 9 U/L 9 - 39 U/L [facility] Bilirubin [Mass/Vol] 0.5 mg/dL 0.0 - 1 .2 mg/dL [facility] Calcium [Mass/Vol] 9.4 mg/dL 8.6 - 10. 6 mg/dL [facility] Chloride [Moles/Vol] 106 mmol/L 98 - 10 7 mmol/L [facility] CO2 [Moles/Vol] 21 mmol/L 21 - 32 mmol/L [facility] Creatinine [Mass/Vol] 0.51 mg/dL 0.50 - 1.05 mg/dL [facility] eGFR - PINF [facility] Comment on above: Calculations of zoya mated GFR are performed using the 2020 CKD-EPI Study Refit equation without the race variable for the IDMS-Traceable creatinine methods. https://jasn.asnjournals.org/content/early/ASN.114961 9154 Glucose [Mass/Vol] 104 mg/dL High 74 - 99 mg/dL [facility] Interpretation and review of laboratory results Abnormal [facility] Potassium [Moles/Vol] 4.1 mmol/L 3.5 - 5.3 mmol/L [facility] [facility] [Mass/Vol] 6.5 g/dL 6.4 - 8.2 g/dL [facility] Sodium [Moles/Vol] 136 mmol/L 136 - 145 mmol/L [facility] Urea nitrogen [Mass/Vol] 9 mg/dL 6 - 23 mg/dL [facility] Albumin BCP dye [Mass/Vol] 3.5 g/dL Normal 3.4-5.[address] [facility] Comment on above: Performed By: #### 3 084-1 #### QUIN Simon ([id number]) [facility] ([facility]) [address] [place] [address] 14242 ALP [Catalytic activity/Vol] 89 U/L Normal 33-[address] [facility] Comment on above: Performed By: #### 3 084-1 #### QUIN Simon ([id number]) [facility] ([facility]) [address] [place] [address] 34657 ALT With P-5'-P [Catalytic activity/Vol] 7 U/L Normal 7-[address] [facility] Comment on above: Result Comment: Nguyen ents treated with Sulfasalazine may generate falsely decreased results for ALT. Performed By: #### 3 084-1 #### QUIN Simon ([id number]) [facility] ([facility]) [address] [place] [address] Anion gap [Moles/Vol] 13 mmol/L Normal 10-20 [facility] Comment on above: Performed By: #### 3 084-1 #### QUIN Simon ([id number]) [facility] ([facility]) [address] [place] [address] AST With P-5'-P [Catalytic activity/Vol] 9 U/L Normal 9-[address] [facility] Comment on above: Performed By: #### 3 084-1 #### QUIN Simon ([id number]) [facility] ([facility]) [address] [place] [address] Bilirubin [Mass/Vol] 0.5 mg/dL Normal 0.0-1.2 [facility] Comment on above: Performed By: #### 3 084-1 #### QUIN Simon ([id number]) [facility] ([facility]) [address] [place] [address] Calcium [Mass/Vol] 9.4 mg/dL Normal 8.6-10.6 [facility] Comment on above: Performed By: #### 3 084-1 #### QUIN Simon ([id number]) [facility] ([facility]) [address] [place] [address] Chloride [Moles/Vol] 106 mmol/L Normal 98-107 [facility] Comment on above: Performed By: #### 3 084-1 #### QUIN Simon ([id number]) [facility] ([facility]) [address] [place] [address] CO2 [Moles/Vol] 21 mmol/L Normal 21-32 [facility] Comment on above: Performed By: #### 3 084-1 #### QUIN Simon ([id number]) [facility] ([facility]) [address] [place] [address] Creatinine [Mass/Vol] 0.51 mg/dL Normal 0.50-1.05 [facility] Comment on above: Performed By: #### 3 084-1 #### QUIN Simon ([id number]) [facility] ([facility]) [id number] [place] [address] GFR/1.73 sq M.predicted MDRD (S/P/Bld) [Vol rate/Area] mL/min/{1.73_m2} Normal >[address] [facility] Comment on above: Result Comment: Calc ulations of estimated GFR are performed using the 2020 CKD-EPI Study Refit equation without the race variable for the IDMS-Traceable creatinine methods. https://jasn.asnjournals.org/content/early/ASN.501849 0174 Performed By: #### 3 084-1 #### QUIN Simon ([id number]) [facility] ([facility]) [address] [place] [address] Glucose [Mass/Vol] 104 mg/dL High 74-99 [facility] Comment on above: Performed By: #### 3 084-1 #### QUIN Simon ([id number]) [facility] ([facility]) [address] [place] [address] 87935 Potassium [Moles/Vol] 4.1 mmol/L Normal 3.5-5.3 [facility] Comment on above: Performed By: #### 3 084-1 #### QUIN Simon ([id number]) [facility] ([facility]) [address] [place] [address] 45874 Protein [Mass/Vol] 6.5 g/dL Normal 6.4-8.2 [facility] Comment on above: Performed By: #### 3 084-1 #### QUIN Simon ([id number]) [facility] ([facility]) [address] [place] [address] Sodium [Moles/Vol] 136 mmol/L Normal 136-145 [facility] Comment on above: Performed By: #### 3 084-1 #### QUIN HARTMAN L ([id number]) [facility] ([facility]) [address] [place] [address] Urea nitrogen [Mass/Vol] 9 mg/dL Normal 6-[address] [facility] Comment on above: Performed By: #### 3 084-1 #### QUIN HARTMAN L ([id number]) [facility] ([facility]) [address] [place] [address] Gas panel (BldV)on 5 Anion gap 4 (BldV) [Moles/Vol] 11 mmol/L 10.0 - 25.0 mmol/L [facility] Base excess Calc (BldV) [Moles/Vol] -3.2000 mmol/L Low -2.0 - 3.0 mmol/L [facility] Calcium.ionized (BldV) [Moles/Vol] 1.24 mmol/L 1.10 - 1.33 mmol/L [facility] Chloride (BldV) [Moles/Vol] 106 mmol/L 98 - 107 mmol/L [facility] CO2 (BldV) [Partial pressure] 30 mm[Hg] Low [facility] Glucose [Mass/Vol] 110 mg/dL High 74 - 99 mg/dL [facility] HCO3 (Bld) [Moles/Vol] 19.9 mmol/L Low 22.0 - 26.0 mmol/L [facility] Hematocrit Est (Bld) [Volume fraction] 44 % 36.0 - 46.0 % [facility] Hemoglobin (Bld) [Mass/Vol] 14.8 g/dL 12.0 - 16.0 g/dL [facility] Inhaled oxygen concentration 21 % [facility] Interpretation and review of laboratory results Abnormal [facility] Lactate (BldV) [Moles/Vol] 1 mmol/L 0.4 - 2.0 mmol/L [facility] Oxygen (BldV) [Partial pressure] 71 mm[Hg] High [facility] Oxygen saturation in Venous blood 96 % High 45 - 75 % [facility] Oxyhemoglobin (BldV) [Mass fraction] 93.3 % High 45.0 - 75.0 % [facility] pH (BldV) 7.43 [pH] 7.33 - 7.43 pH [facility] Potassium (BldV) [Moles/Vol] 3.8 mmol/L 3.5 - 5.3 mmol/L [facility] Sodium (BldV) [Moles/Vol] 133 mmol/L Low 136 - 145 mmol/L [facility] Anion gap 4 (BldV) [Moles/Vol] 11.0 mmol/L Normal 10.0-25.[address] [facility] Comment on above: Performed By: #### 4 548-4 #### QUIN Simon ([id number]) [facility] ([facility]) [address] [place] [address] 16432 Base excess Calc (BldV) [Moles/Vol] -3.2000 mmol/L Low -2.0-3.[address] [facility] Comment on above: Performed By: #### 4 548-4 #### QUIN Simon ([id number]) [facility] ([facility]) [address] [place] [address] 06766 Calcium.ionized (BldV) [Moles/Vol] 1.24 mmol/L Normal 1.10-1.[address] [facility] Comment on above: Performed By: #### 4 548-4 #### QUIN Simon ([id number]) [facility] ([facility]) [address] [place] [address] 81542 Chloride (BldV) [Moles/Vol] 106 mmol/L Normal 98-[address] [facility] Comment on above: Performed By: #### 4 548-4 #### QUIN Simon ([id number]) [facility] ([facility]) [address] [place] [address] 96425 CO2 (BldV) [Partial pressure] 30 mm Hg Low 41-[address] [facility] Comment on above: Performed By: #### 4 548-4 #### QUIN Simon ([id number]) [facility] ([facility]) [address] [place] [address] 26545 Glucose [Mass/Vol] 110 mg/dL High 74-99 [facility] Comment on above: Performed By: #### 4 548-4 #### QUIN Simon ([id number]) [facility] ([facility]) [address] [place] [address] 64638 HCO3 (Bld) [Moles/Vol] 19.9 mmol/L Low 22.0-26.[address] [facility] Comment on above: Performed By: #### 4 548-4 #### QUIN Simon ([id number]) [facility] ([facility]) [address] [place] [address] 27461 Hematocrit Est (Bld) [Volume fraction] 44.0 % Normal 36.0-46.[address] [facility] Comment on above: Performed By: #### 4 548-4 #### QUIN Simon ([id number]) [facility] ([facility]) [address] [place] [address] 67043 Hemoglobin (Bld) [Mass/Vol] 14.8 g/dL Normal 12.0-16.[address] [facility] Comment on above: Performed By: #### 4 548-4 #### QUIN Simon ([id number]) [facility] ([facility]) [address] [place] [address] 39728 Inhaled oxygen concentration 21 % Normal [facility] Comment on above: Performed By: #### 4 548-4 #### QUIN Simon ([id number]) [facility] ([facility]) [address] [place] [address] 73234 Lactate (BldV) [Moles/Vol] 1.0 mmol/L Normal 0.4-2.[address] [facility] Comment on above: Performed By: #### 4 548-4 #### QUIN Simon ([id number]) [facility] ([facility]) [address] [place] [address] 06371 Oxygen (BldV) [Partial pressure] 71 mm Hg High 35-[address] [facility] Comment on above: Performed By: #### 4 548-4 #### QUIN Smion ([id number]) [facility] ([facility]) [address] [place] [address] 42228 Oxygen saturation in Venous blood 96 % High 45-[address] [facility] Comment on above: Performed By: #### 4 548-4 #### QUIN Simon ([id number]) [facility] ([facility]) [address] [place] [address] 18670 Oxyhemoglobin (BldV) [Mass fraction] 93.3 % High 45.0-75.[address] [facility] Comment on above: Performed By: #### 4 548-4 #### QUIN Simon ([id number]) [facility] ([facility]) [address] [place] [address] 54251 pH (BldV) 7.43 [pH] Normal 7.33-7.[address] [facility] Comment on above: Performed By: #### 4 548-4 #### QUIN Simon ([id number]) [facility] ([facility]) [address] [place] [address] 42247 Potassium (BldV) [Moles/Vol] 3.8 mmol/L Normal 3.5-5.[address] [facility] Comment on above: Performed By: #### 4 548-4 #### QUIN Simon ([id number]) [facility] ([facility]) [address] [place] [address] 95754 Sodium (BldV) [Moles/Vol] 133 mmol/L Low 136-[address] [facility] Comment on above: Performed By: #### 4 548-4 #### QUIN Simon ([id number]) [facility] ([facility]) [address] [place] [address] 66675 Glucose Test strip manual (B ld) [Mass/Vol]on 02-08-2025 Glucose [Mass/Vol] 117 mg/dL High 74 - 99 mg/dL [facility] Interpretation and review of laboratory results Abnormal [facility] Glucose [Mass/Vol] 117 mg/dL High 74-99 [facility] Comment on above: Performed By: #### 3 084-1 #### QUIN Simon ([id number]) [facility] ([facility]) [address] [place] [address] Glucose [Mass/Vol] 140 mg/dL High 74 - 99 mg/dL [facility] Interpretation and review of laboratory results Abnormal [facility] Glucose [Mass/Vol] 140 mg/dL High 74-99 [facility] Comment on above: Performed By: #### 4 548-4 #### QUIN Simon ([id number]) [facility] ([facility]) [address] [place] [address] Hepatitis B virus surface Ag on 02-08-2025 HBV surface Ag IA Ql Non-Reactive Normal Nonreactive [facility] Comment on above: Result Comment: Biot in interference may cause falsely decreased results. Patients taking a Biotin dose of up to 5 mg/day should refrain from taking Biotin for 24 hours before sample collection. Providers may contact their local laboratory for further information. Performed By: #### 3 5255-9 #### QUIN Simon ([id number]) [facility] ([facility]) [address] [place] [address] Influenza virus A and B and SARS-CoV-2 (COVID-19) identified JYOTI+probe Nom (Resp)on 02-08-2025 FLUAV RNA JYOTI+probe Ql (Resp) Not detected Not Detected [facility] FLUBV RNA JYOTI+probe Ql (Resp) Not detected Not Detected [facility] Interpretation and review of laboratory results Normal [facility] SARS-CoV-2 (COVID-19) RNA JYOTI+probe Ql (Resp) Not detected Not Detected [facility] This assay is an FDA-cleared, in vitro diagnostic nucleic acid amplification test for the qualitative detection and differentiation of SARS CoV-2/ Influenza A/B from nasopharyngeal specimens collected from individuals with signs and symptoms of respiratory tract infections, and has been validated for use at [facility]. Negative results do not preclude COVID-19/ Influenza A/B infections and should not be used as the sole basis for diagnosis, treatment, or other management decisions. Testing for SARS CoV-2 is recommended only for patients who meet current clinical and/or epidemiological criteria defined by federal, state, or local public health directives. [facility] FLUAV RNA JYOTI+probe Ql (Resp) Not detected Normal Not Detected [facility] Comment on above: Order Comment: This assay is an FDA-cleared, in vitro diagnostic nucleic acid amplification test for the qualitative detection and differentiation of SARS CoV-2/ Influenza A/B from nasopharyngeal specimens collected from individuals with signs and symptoms of respiratory tract infections, and has been validated for use at [facility]. Negative results do not preclude COVID-19/ Influenza A/B infections and should not be used as the sole basis for diagnosis, treatment, or other management decisions. Testing for SARS CoV-2 is recommended only for patients who meet current clinical and/or epidemiological criteria defined by federal, state, or [facility] public health directives. Performed By: #### 3 084-1 #### QUIN Simon ([id number]) [facility] ([facility]) [address] [place] [address] FLUBV RNA JYOTI+probe Ql (Resp) Not detected Normal Not Detected [facility] Comment on above: Order Comment: This assay is an FDA-cleared, in vitro diagnostic nucleic acid amplification test for the qualitative detection and differentiation of SARS CoV-2/ Influenza A/B from nasopharyngeal specimens collected from individuals with signs and symptoms of respiratory tract infections, and has been validated for use at [facility]. Negative results do not preclude COVID-19/ Influenza A/B infections and should not be used as the sole basis for diagnosis, treatment, or other management decisions. Testing for SARS CoV-2 is recommended only for patients who meet current clinical and/or epidemiological criteria defined by federal, state, or local public health directives. Performed By: #### 3 084-1 #### QUIN Simon ([id number]) [facility] ([facility]) [address] [place] [address] SARS-CoV-2 (COVID-19) RNA JYOTI+probe Ql (Resp) Not detected Normal Not Detected [facility] Comment on above: Order Comment: This assay is an FDA-cleared, in vitro diagnostic nucleic acid amplification test for the qualitative detection and differentiation of SARS CoV-2/ Influenza A/B from nasopharyngeal specimens collected from individuals with signs and symptoms of respiratory tract infections, and has been validated for use at [facility]. Negative results do not preclude COVID-19/ Influenza A/B infections and should not be used as the sole basis for diagnosis, treatment, or other management decisions. Testing for SARS CoV-2 is recommended only for patients who meet current clinical and/or epidemiological criteria defined by federal, state, or local public health directives. Performed By: #### 3 084-1 #### QUIN Simon ([id number]) [facility] ([facility]) [address] [place], [place] [address] Lactate Dehydrogenaseon LDH Lactate to pyruvate reaction [Catalytic activity/Vol] 185 U/L 84 - 246 U/L [facility] Lactate dehydrogenaseon LDH Lactate to pyruvate reaction [Catalytic activity/Vol] 185 U/L Normal 84-[address] [facility] Comment on above: Performed By: #### 3 084-1 #### QUIN Simon ([id number]) [facility] ([facility]) [address] [place], [place] [address] Lipaseon 02-08-2025 Lipase [Catalytic activity/Vol] 13 U/L 9 - 82 U/L [facility] Lipase [Catalytic activity/V ol]on 02-08-2025 Interpretation and review of laboratory results Normal [facility] Venipuncture immedia tely after or during the administration of Metamizole may lead to falsely low results. Testing should be performed immediately prior to Metamizole dosing. [facility] No Panel Informationon 02-08 Interpretation and review of laboratory results Normal [facility] Proteinon 02-08-2025 Protein Qn (U) 33 mg/dL High 5-[address] [facility] Comment on above: Performed By: #### 3 084-1 #### QUIN Simon ([id number]) [facility] ([facility]) [address] [place] [address] 90316 Protein Qn (U)on 02-08-2025 Creatinine (U) [Mass/Vol] 190.1 mg/dL 20.0 - 320.0 mg/dL [facility] Interpretation and review of laboratory results Abnormal [facility] Protein/Creatinine (U) [Mass ratio] 0.17 mg/g [facility] Creatinine (U) [Mass/Vol] 190.1 mg/dL Normal 20.0-320.[address] [facility] Comment on above: Performed By: #### 3 084-1 #### QUIN Simon ([id number]) [facility] ([facility]) [address] [place] [address] 86045 Protein/Creatinine (U) [Mass ratio] 0.17 mg/mg Creat Normal 0.00-0.[address] [facility] Comment on above: Performed By: #### 3 084-1 #### QUIN Simon ([id number]) [facility] ([facility]) [address] [place] [address] 71773 Protein, Urine Randomon Protein Qn (U) 33 mg/dL High 5 - 24 mg/dL [facility] Streptococcus.beta-hemolytic on 02-08-2025 Streptococcus.beta-he molytic Org specific cx Ql (Genital specimen) Test: Group B Streptococcus (GBS) Screen, Culture Specimen Source: Vaginal/Rectal Specimen Type: Swab Specimen Date: 02/08/20252351 Result Date: 02/24/2025 0849 Result Status: Edited Result - FINAL Abnormal: Yes Resulting Lab: [facility] [address] [place] [address]161 CULTURE Isolated: Streptococcus agalactiae (Group B Streptococcus) (Abnormal) Streptococcus agalactiae (Group B Streptococcus) is universally susceptible to beta-lactam antibiotics and vancomycin. Routine susceptibility testing not performed. For penicillin allergic patients, please contact the laboratory within 5 days of collection at to request susceptibility testing. Abnormal [facility] Comment on above: Performed By: #### 1 4804-9 #### QUIN Simon ([id number]) [facility] ([facility]) [address] [place] [address] 60356 Treponema pallidum Ab.IgG+Ig Mon 02-08-2025 T. pallidum IgG+IgM IA Ql (S) Non-Reactive Normal Nonreactive [facility] Comment on above: Result Comment: No s ignificant level of Treponema pallidum antibody detected. Repeat testing in 2 to 4 weeks may be considered if early infection or incubating syphilis infection is suspected. Performed By: #### 2 4323-8 #### QUIN Simon ([id number]) [facility] ([facility]) [address] [place] [address] 35455 Triacylglycerol lipaseon Lipase [Catalytic activity/Vol] 13 U/L Normal 9-[address] [facility] Comment on above: Order Comment: Venip uncture immediately after or during the administration of Metamizole may lead to falsely low results. Testing should be performed immediately prior to Metamizole dosing. Performed By: #### 3 084-1 #### QUIN Simon ([id number]) [facility] ([facility]) [address] [place] [address] 65273 Urateon 02-08-2025 Urate [Mass/Vol] 3.8 mg/dL Normal 2.3-6.7 [facility] Comment on above: Result Comment: Jessica puncture immediately after or during the administration of Metamizole may lead to falsely low results. Testing should be performed immediately prior to Metamizole dosing. Performed By: #### 3 084-1 #### QUIN Simon ([id number]) [facility] ([facility]) [address] [place] [address] 43189 Urate [Mass/Vol]on Interpretation and review of laboratory results Normal [facility] Uric Acidon 02-08-2025 Urate [Mass/Vol] 3.8 mg/dL 2.3 - 6.7 mg/dL [facility] Comment on above: Venipuncture immedia tely after or during the administration of Metamizole may lead to falsely low results. Testing should be performed immediately prior to Metamizole dosing. Glucose Test strip manual (B ld) [Mass/Vol]on 02-05-2025 Glucose [Mass/Vol] 175 mg/dL High 74-99 [facility] Comment on above: Performed By: #### 4 548-4 #### QUIN Simon ([id number]) [facility] ([facility]) [address] [place] [address] US OB FOLLOW UP TRANSABDOMIN AL APPROACHon [...] normal amount -No malformations by limited survey -[facility] 06/12 Thank you for allowing us to [...] EFW (oz) 4 oz EFW by: Hadlock ([id number]) Extended Front Desk 2.7 mm Head / Face / Neck [...] view: limited by late gestational age Normal [facility] US for pregnancyon Interpreted by: Carline [...] normal amount -No malformations by limited survey -[facility] 06/12 Thank you for allowing us to [...] EFW (oz) 4 oz EFW by: Hadlock ([id number]) Extended Front Desk 2.7 mm Head / Face / Neck [...] Gestational- on Insulin History ====== General History Tlhtdr484 cm Height (ft)5 ft Height (in)4 in Previous Outcomes [id number] Para5 Children born living ?37w1 Pregnancies delivered at term (T)1 Pregnancies delivered (P)4 Abortions (A)9 Living children (L)5 Children born living <37w4 Miscarriages9 Other:Vaginal Delivery Maternal Assessment Gvmjwl915 cm Height (ft)5 ft Height (in)4 in Dyooiy363 kg Weight (lb)285 lb Weight gain0 kg Weight gain (lb)0 lb BMI48.92 kg/m Physical Exam Initial weight (lb)285 lb ========= Schilling . Number of fetuses: 1 Dating ====== Cycle:LMP date not known [place] by prior [id number] w + 3 d [place] by prior [...] normal amount -No malformations by limited survey -[facility] 06/12 Thank you for allowing us to [...] Biometry Standard BPD87.0 mm35w 1d >99% Hadlock IQB806.9 mm 89% INTERGROWTH-21st HC306.9 mm34w 1d 85% Hadlock AC315.1 mm35w 3d >99% Hadlock Femur61.1 mm31w 5d 44% Hadlock HC / AC0.97 EFW2,395 g34w 1d 99% Hadlock EFW (lb)5 lb EFW (oz)4 oz EFW by:Hadlock ([id number]) Extended Vp2.7 mm Head / Face / Neck Cephalic index0.81 69% Nicolaides Extremities / Bony Struc FL / BPD0.70 FL / HC0.20 FL / AC0.19 Other Structures WOU922 bpm Anatomy Cranium:Normal Lateral ventricles:Normal Midline falx:Normal [...] view: limited by late gestational age [facility] Work Phone: [facility] Work Phone: Radiology Study observation (narrative) [facility] Work Phone: CBC panel Auto (Bld)on 01-29 Erythrocyte distribution width (RBC) [Ratio] 13.4 % Normal 11.5-14.5 [facility] Comment on above: Performed By: #### 5 8410-2 #### BREEZY LOCO ([id number]) [facility] ([facility]) [address] [place] [address] Hematocrit (Bld) [Volume fraction] 37.0 % Normal 36.0-46.0 [facility] Comment on above: Performed By: #### 5 8410-2 #### BREEZY LOCO ([id number]) [facility] ([facility]) [address] [place] [address] Hemoglobin (Bld) [Mass/Vol] 11.8 g/dL Low 12.0-16.0 [facility] Comment on above: Performed By: #### 5 8410-2 #### BREEZY LOCO ([id number]) [facility] ([facility]) [address] [place] [address] MCH (RBC) [Entitic mass] 28.2 pg Normal 26.0-34.0 [facility] Comment on above: Performed By: #### 5 8410-2 #### BREEZY LOCO ([id number]) [facility] ([facility]) [address] [place] [address] MCHC (RBC) [Mass/Vol] 31.9 g/dL Low 32.0-36.0 [facility] Comment on above: Performed By: #### 5 8410-2 #### BREEZY LOCO ([id number]) [facility] ([facility]) [address] [place] [address] MCV (RBC) [Entitic vol] 88 fL Normal 80-100 [facility] Comment on above: Performed By: #### 5 8410-2 #### BREEZY LOCO ([id number]) [facility] ([facility]) [address] [place] [address] Nucleated RBC/100 WBC (Bld) [Ratio] 0.0 /100 WBCs Normal 0.0-0.0 [facility] Comment on above: Performed By: #### 5 8410-2 #### BREEZY LOCO ([id number]) [facility] ([facility]) [address] [place] [address] Platelets (Bld) [#/Vol] 261 x10*3/uL Normal 150-450 [facility] Comment on above: Performed By: #### 5 8410-2 #### BREEZY LOCO ([id number]) [facility] ([facility]) [address] [place] [address] RBC (Bld) [#/Vol] 4.19 x10*6/uL Normal 4.00-5.20 [facility] Comment on above: Performed By: #### 5 8410-2 #### BREEZY LOCO ([id number]) [facility] ([facility]) [address] [place] [address] WBC (Bld) [#/Vol] 15.6 x10*3/uL High 4.4-11.3 [facility] Comment on above: Performed By: #### 5 8410-2 #### BREEZY LOCO ([id number]) [facility] ([facility]) [address] [place] [address] Comprehensive metabolic 2000 panelon 01-29-2025 Albumin BCP dye [Mass/Vol] 3.4 g/dL Normal 3.4-5.0 [facility] Comment on above: Performed By: #### 2 4323-8 #### BREEZY LOCO ([id number]) [facility] ([facility]) [address] [place] [address] ALP [Catalytic activity/Vol] 73 U/L Normal 33-110 [facility] Comment on above: Performed By: #### 2 4323-8 #### BREEZY LOCO ([id number]) [facility] ([facility]) [address] [place] [address] ALT With P-5'-P [Catalytic activity/Vol] 6 U/L Low 7-45 [facility] Comment on above: Result Comment: Nguyen ents treated with Sulfasalazine may generate falsely decreased results for ALT. Performed By: #### 2 4323-8 #### BREEZY LOCO ([id number]) [facility] ([facility]) [address] [place] [address] Anion gap [Moles/Vol] 15 mmol/L Normal 10-20 [facility] Comment on above: Performed By: #### 2 4323-8 #### BREEZY LOCO ([id number]) [facility] ([facility]) [address] [place] [address] AST With P-5'-P [Catalytic activity/Vol] 9 U/L Normal 9-39 [facility] Comment on above: Performed By: #### 2 4323-8 #### BREEZY LOCO ([id number]) [facility] ([facility]) [address] [place] [address] Bilirubin [Mass/Vol] 0.5 mg/dL Normal 0.0-1.2 [facility] Comment on above: Performed By: #### 2 4323-8 #### BREEZY LOCO ([id number]) [facility] ([facility]) [address] [place] [address] Calcium [Mass/Vol] 8.9 mg/dL Normal 8.6-10.3 [facility] Comment on above: Performed By: #### 2 4323-8 #### BREEZY LOCO ([id number]) [facility] ([facility]) [address] [place] [address] Chloride [Moles/Vol] 105 mmol/L Normal 98-107 [facility] Comment on above: Performed By: #### 2 4323-8 #### BREEZY LOCO ([id number]) [facility] ([facility]) [address] [place] [address] CO2 [Moles/Vol] 21 mmol/L Normal 21-32 [facility] Comment on above: Performed By: #### 2 4323-8 #### BREEZY LOCO ([id number]) [facility] ([facility]) [address] [place] [address] Creatinine [Mass/Vol] 0.55 mg/dL Normal 0.50-1.05 [facility] Comment on above: Performed By: #### 2 4323-8 #### BREEZY LOCO ([id number]) [facility] ([facility]) [address] [place] [address] GFR/1.73 sq M.predicted MDRD (S/P/Bld) [Vol rate/Area] mL/min/{1.73_m2} Normal >60 [facility] Comment on above: Result Comment: Calc ulations of estimated GFR are performed using the 2020 CKD-EPI Study Refit equation without the race variable for the IDMS-Traceable creatinine methods. https://jasn.asnjournals.org/content//ASN.914456 7781 Performed By: #### 2 4323-8 #### BREEZY LOCO ([id number]) [facility] ([facility]) [address] [place] [address] Glucose [Mass/Vol] 93 mg/dL Normal 74-99 [facility] Comment on above: Performed By: #### 2 4323-8 #### BREEZY LOCO ([id number]) [facility] ([facility]) [address] [place] [address] Potassium [Moles/Vol] 3.6 mmol/L Normal 3.5-5.3 [facility] Comment on above: Performed By: #### 2 4323-8 #### BREEZY LOCO ([id number]) [facility] ([facility]) [address] [place] [address] Protein [Mass/Vol] 6.4 g/dL Normal 6.4-8.2 [facility] Comment on above: Performed By: #### 2 4323-8 #### BREEZY LOCO ([id number]) [facility] ([facility]) [address] [place] [address] Sodium [Moles/Vol] 137 mmol/L Normal 136-145 [facility] Comment on above: Performed By: #### 2 4323-8 #### BREEZY LOCO ([id number]) [facility] ([facility]) [address] [place] [address] Urea nitrogen [Mass/Vol] 6 mg/dL Normal 6-23 [facility] Comment on above: Performed By: #### 2 4323-8 #### BREEZY LOCO ([id number]) [facility] ([facility]) [address] [place] [address] Glucose Test strip manual (B ld) [Mass/Vol]on 01-29-2025 Glucose [Mass/Vol] 124 mg/dL High 74-99 [facility] Comment on above: Performed By: #### 4 548-4 #### QUIN Simon ([id number]) [facility] ([facility]) [address] [place], [place] [id number] MR/BMS.BPon 01-29-2025 MR/BMS.BP Normal [facility] US OB LIMITED 1+ FETUSESon 0 [...] ====== Transabdominal ultrasound examination. View: Sufficient Normal [facility] MR/BMS.BPon 01-27-2025 MR/BMS.BP Normal [facility] PROTEIN, TOTAL W/CREAT, RAND OM URINEon 01-23-2025 Creatinine (U) [Mass/Vol] 61 mg/dL Normal 20-275 [facility] Comment on above: Performed By: #### 1 841, 83903 #### [facility] [address], [address] [place] [id number] Electrician Third: Salvador Swanson MD Protein (U) [Mass/Vol] 15 mg/dL Normal 5-24 [facility] Comment on above: Performed By: #### 1 027, 17394 #### [facility] [address], [address] [place] [address] Electrician Third: Salvador Swanson MD PROTEIN/CREATININE RATIO 246 mg/g creat High 24-184 [facility] Comment on above: Performed By: #### 1 759, 82504 #### [facility] [address], [address] [place] [address] Electrician Third: Salvador Swanson MD PROTEIN/CREATININE RATIO 0.246 mg/mg creat High 0.024-0.184 [facility] Comment on above: Performed By: #### 1 759, 04961 #### [facility] [address], [address] [place] [address] Electrician Third: Salvador Swanson MD CBC panel Auto (Bld)on 01-22 Erythrocyte distribution width (RBC) [Ratio] 13.4 % Normal 11.5-14.5 [facility] Comment on above: Performed By: #### 5 8410-2 #### BREEZY LOCO ([id number]) [facility] ([facility]) [address] [place] [address] Hematocrit (Bld) [Volume fraction] 36.7 % Normal 36.0-46.0 [facility] Comment on above: Performed By: #### 5 8410-2 #### BREEZY LOCO ([id number]) [facility] ([facility]) [address] [place] [address] Hemoglobin (Bld) [Mass/Vol] 11.8 g/dL Low 12.0-16.0 [facility] Comment on above: Performed By: #### 5 8410-2 #### BREEZY LOCO ([id number]) [facility] ([facility]) [address] [place] [address] MCH (RBC) [Entitic mass] 28.4 pg Normal 26.0-34.0 [facility] Comment on above: Performed By: #### 5 8410-2 #### BREEZY LOCO ([id number]) [facility] ([facility]) [address] [place] [address] MCHC (RBC) [Mass/Vol] 32.2 g/dL Normal 32.0-36.0 [facility] Comment on above: Performed By: #### 5 8410-2 #### BREEZY LOCO ([id number]) [facility] ([facility]) [address] [place] [address] MCV (RBC) [Entitic vol] 88 fL Normal 80-100 [facility] Comment on above: Performed By: #### 5 8410-2 #### BREEZY LOCO ([id number]) [facility] ([facility]) [address] [place] [address] Nucleated RBC/100 WBC (Bld) [Ratio] 0.0 /100 WBCs Normal 0.0-0.0 [facility] Comment on above: Performed By: #### 5 8410-2 #### BREEZY LOCO ([id number]) [facility] ([facility]) [address] [place] [address] Platelets (Bld) [#/Vol] 250 x10*3/uL Normal 150-450 [facility] Comment on above: Performed By: #### 5 8410-2 #### BREEZY LOCO ([id number]) [facility] ([facility]) [address] [place] [address] RBC (Bld) [#/Vol] 4.15 x10*6/uL Normal 4.00-5.20 [facility] Comment on above: Performed By: #### 5 8410-2 #### BREEZY LOCO ([id number]) [facility] ([facility]) [address] [place] [address] WBC (Bld) [#/Vol] 14.4 x10*3/uL High 4.4-11.3 [facility] Comment on above: Performed By: #### 5 8410-2 #### BREEZY LOCO ([id number]) [facility] ([facility]) [address] [place] [address] Comprehensive metabolic 2000 panelon 01-22-2025 Albumin BCP dye [Mass/Vol] 3.6 g/dL Normal 3.4-5.0 [facility] Comment on above: Performed By: #### 2 4323-8 #### BREEZY LOCO ([id number]) [facility] ([facility]) [address] [place] [address] ALP [Catalytic activity/Vol] 79 U/L Normal 33-110 [facility] Comment on above: Performed By: #### 2 4323-8 #### BREEZY LOCO ([id number]) [facility] ([facility]) [address] [place] [address] ALT With P-5'-P [Catalytic activity/Vol] 7 U/L Normal 7-45 [facility] Comment on above: Result Comment: Nguyen ents treated with Sulfasalazine may generate falsely decreased results for ALT. Performed By: #### 2 4323-8 #### BREEZY LOCO ([id number]) [facility] ([facility]) [address] [place] [address] Anion gap [Moles/Vol] 14 mmol/L Normal 10-20 [facility] Comment on above: Performed By: #### 2 432-8 #### BREEZY LOCO ([id number]) [facility] ([facility]) [address] [place] [address] AST With P-5'-P [Catalytic activity/Vol] 15 U/L Normal 9-39 [facility] Comment on above: Performed By: #### 2 4323-8 #### BREEZY LOCO ([id number]) [facility] ([facility]) [address] [place] [address] Bilirubin [Mass/Vol] 0.5 mg/dL Normal 0.0-1.2 [facility] Comment on above: Performed By: #### 2 4323-8 #### BREEZY LOCO ([id number]) [facility] ([facility]) [address] [place] [address] Calcium [Mass/Vol] 9.0 mg/dL Normal 8.6-10.3 [facility] Comment on above: Performed By: #### 2 4323-8 #### BREEZY LOCO ([id number]) [facility] [facility] ([facility]) [address] [place] [address] Chloride [Moles/Vol] 105 mmol/L Normal 98-107 [facility] Comment on above: Performed By: #### 2 4323-8 #### BREEZY LOCO ([id number]) [facility] ([facility]) [address] [place] [address] CO2 [Moles/Vol] 18 mmol/L Low 21-32 [facility] Comment on above: Performed By: #### 2 4323-8 #### BREEZY LOCO ([id number]) [facility] ([facility]) [address] [place] [address] Creatinine [Mass/Vol] 0.47 mg/dL Low 0.50-1.05 [facility] Comment on above: Performed By: #### 2 4323-8 #### BREEZY LOCO ([id number]) [facility] ([facility]) [address] [place] [address] GFR/1.73 sq M.predicted MDRD (S/P/Bld) [Vol rate/Area] mL/min/{1.73_m2} Normal >60 [facility] Comment on above: Result Comment: Calc ulations of estimated GFR are performed using the 2020 CKD-EPI Study Refit equation without the race variable for the IDMS-Traceable creatinine methods. https://jasn.asnjournals.org/content//ASN.383299 7095 Performed By: #### 2 4323-8 #### BREEZY LOCO ([id number]) [facility] ([facility]) [address] [place] [address] Glucose [Mass/Vol] 122 mg/dL High 74-99 [facility] Comment on above: Performed By: #### 2 4323-8 #### BREEZY LOCO ([id number]) [facility] ([facility]) [address] [place] [address] Potassium [Moles/Vol] 3.8 mmol/L Normal 3.5-5.3 [facility] Comment on above: Performed By: #### 2 4323-8 #### BREEZY LOCO ([id number]) [facility] ([facility]) [address] [place] [address] Protein [Mass/Vol] 6.7 g/dL Normal 6.4-8.2 [facility] Comment on above: Performed By: #### 2 4323-8 #### BREEZY LOCO ([id number]) [facility] ([facility]) [address] [place] [address] Sodium [Moles/Vol] 133 mmol/L Low 136-145 [facility] Comment on above: Performed By: #### 2 4323-8 #### BREEZY LOCO ([id number]) [facility] ([facility]) [address] [place] [address] Urea nitrogen [Mass/Vol] 6 mg/dL Normal 6-23 [facility] Comment on above: Performed By: #### 2 4323-8 #### BREEZY LOCO ([id number]) [facility] ([facility]) [address] [place] [address] Glucose Test strip manual (B ld) [Mass/Vol]on 01-22-2025 Glucose [Mass/Vol] 178 mg/dL High 74 - 99 mg/dL [facility] Interpretation and review of laboratory results Abnormal [facility] Glucose [Mass/Vol] 178 mg/dL High 74-99 [facility] Comment on above: Performed By: #### 4 548-4 #### QUIN Simon ([id number]) [facility] ([facility]) [address] [place] [address] US OB LIMITED 1+ FETUSESon 0 01-22-2025 [...] Suboptimal view: limited by maternal body habitus [facility] US for pregnancyon Interpreted by: Judit [...] on Insulin. Polyhydramnios History ====== General History Vqdtpr250 cm Height (ft)5 ft Height (in)4 in Previous Outcomes Oxhqtbz77 Para5 Children born living ?37w1 Pregnancies delivered at term (T)1 Pregnancies delivered (P)4 Abortions (A)9 Living children (L)5 Children born living <37w4 Miscarriages9 Other:Vaginal Delivery Maternal Assessment Fqusjy810 cm Height (ft)5 ft Height (in)4 in Tqbfbl528 kg Weight (lb)285 lb Weight gain0 kg Weight gain (lb)0 lb BMI48.92 kg/m Physical Exam Initial weight (lb)285 lb ========= Schilling . Number of fetuses: 1 Dating ====== Cycle:LMP date not known GA by prior fjybqelanw51 w + 3 d [place] by prior [...] view: limited by maternal body habitus [facility] Work Phone: Radiology Study observation (narrative) [facility] Work Phone: US for pregnancyOrdered By: Judit Jeffery on 01-22-2025 [facility] Work Phone: CBC (H/H, RBC, INDICES, WBC, PLT)on 01-16-2025 Erythrocyte distribution width (RBC) [Ratio] 12.6 % Normal 11.0-15.0 [facility] Comment on above: Performed By: #### 1 255, 25440 #### [facility] [place] [address] Electrician Third: Salvador Swanson MD Hematocrit (Bld) [Volume fraction] 35.3 % Normal 35.0-45.0 [facility] Comment on above: Performed By: #### 1 245, 91150 #### [facility] [place] [address] Electrician Third: Salvador Swanson MD Hemoglobin (Bld) [Mass/Vol] 11.8 g/dL Normal 11.7-15.5 [facility] Comment on above: Performed By: #### 1 668, 10847 #### [facility] [place] [address] Electrician Third: Salvador Swanson MD MCH (RBC) [Entitic mass] 29.4 pg Normal 27.0-33.0 [facility] Comment on above: Performed By: #### 1 669, 90363 #### [facility] [place] [address] Electrician Third: Salvador Swanson MD MCHC (RBC) [Mass/Vol] 33.4 g/dL Normal 32.0-36.[address] [facility] Comment on above: Result Comment: For adults, a slight decrease in the calculated MCHC value (in the range of 30 to 32 g/dL) is most likely not clinically significant; however, it should be interpreted with caution in correlation with other red cell parameters and the patient's clinical condition. Performed By: #### 1 759, 19742 #### [facility] of [place] [address] Electrician Third: Salvador Swanson MD MCV (RBC) [Entitic vol] 87.8 fL Normal 80.0-100.0 [facility] Comment on above: Performed By: #### 1 75, 36979 #### [facility] [place] [address] Electrician Third: Salvador Swanson MD Platelet mean volume (Bld) [Entitic vol] 10.4 fL Normal 7.5-12.5 [facility] Comment on above: Performed By: #### 1 99, 97277 #### [facility] [place] [address] Electrician Third: Salvador Swanson MD Platelets (Bld) [#/Vol] 238 10*3/uL Normal 140-400 [facility] Comment on above: Performed By: #### 1 75, 75052 #### [facility] [place] [address] Electrician Third: Salvador Swanson MD RBC (Bld) [#/Vol] 4.02 10*6/uL Normal 3.80-5.10 [facility] Comment on above: Performed By: #### 1 75, 11797 #### [facility] [place] [address] Electrician Third: Salvador Swanson MD WBC (Bld) [#/Vol] 13.7 10*3/uL High 3.8-10.8 [facility] Comment on above: Performed By: #### 1 33, 20784 #### [facility] of [address] [place] [address] Electrician Third: Salvador Swanson MD COMPREHENSIVE METABOLIC PANE L W/ANION GAPon 01-16-2025 Albumin [Mass/Vol] 3.4 g/dL Low 3.6-5.1 [facility] Comment on above: Performed By: #### 1 369, 27983 #### [facility] [place] [address] Electrician Third: Salvador Swanson MD ALP [Catalytic activity/Vol] 64 U/L Normal 31-125 [facility] Comment on above: Performed By: #### 1 799, 89194 #### [facility] [place] [address] Electrician Third: Salvador Swanson MD ALT [Catalytic activity/Vol] 5 U/L Low 6-29 [facility] Comment on above: Performed By: #### 1 982, 16995 #### [facility] [place] [address] Electrician Third: Salvador Swanson MD AST [Catalytic activity/Vol] 9 U/L Low 10-30 [facility] Comment on above: Performed By: #### 1 417, 06032 #### [facility] [place] [address] Electrician Third: Salvador Swanson MD Bilirubin [Mass/Vol] 0.4 mg/dL Normal 0.2-1.2 [facility] Comment on above: Performed By: #### 1 332, 14450 #### [facility] [place] [address] Electrician Third: Salvador Swanson MD Calcium [Mass/Vol] 8.9 mg/dL Normal 8.6-10.2 [facility] Comment on above: Performed By: #### 1 506, 06941 #### [facility] [place] [address] Electrician Third: Salvador Swanson MD Chloride [Moles/Vol] 104 mmol/L Normal 98-110 [facility] Comment on above: Performed By: #### 1 73, 30026 #### [facility] [address], [address] [place] [address] Electrician Third: Salvador Swanson MD CO2 [Moles/Vol] 22 mmol/L Normal 20-32 [facility] Comment on above: Performed By: #### 1 75, 95277 #### [facility] [address], [address] [place] [address] Electrician Third: Salvador Swanson MD Creatinine [Mass/Vol] 0.62 mg/dL Normal 0.50-0.[address] [facility] [address] [facility] Comment on above: Performed By: #### 1 78, 43719 #### [facility] [address], [address] [place] [address] Electrician Third: Salvador Swanson MD ELECTROLYTE BALANCE 12 mmol/L (calc) Normal 7-17 [facility] Comment on above: Performed By: #### 1 73, 31595 #### [facility] [address], [address] [place] [address] Electrician Third: Salvador Swanson MD GFR/1.73 sq M.predicted among non-blacks MDRD (S/P/Bld) [Vol rate/Area] 119 mL/min/{1.73_m2} Normal > OR = 60 [facility] Comment on above: Performed By: #### 1 61, 68555 #### [facility] [place] [address] Electrician Third: Salvador Swanson MD Glucose [Mass/Vol] 122 mg/dL High 65-99 [facility] Comment on above: Result Comment: Fasting reference interval For someone without known diabetes, a glucose value between 100 and 125 mg/dL is consistent with prediabetes and should be confirmed with a follow-up test. Performed By: #### 1 19, 07487 #### [facility] [address], [address] [place] [address] Electrician Third: Salvador Swanson MD Potassium [Moles/Vol] 3.6 mmol/L Normal 3.5-5.[address] [facility] Comment on above: Performed By: #### 1 759, 26702 #### [facility] [address], [address] [place] [address] Electrician Third: Salvador Swanson MD Protein [Mass/Vol] 6.3 g/dL Normal 6.1-8.1 [facility] Comment on above: Performed By: #### 1 759, 78106 #### [facility] [address], [address] [place] [address] Electrician Third: Salvador Swanson MD Sodium [Moles/Vol] 138 mmol/L Normal 135-146 [facility] Comment on above: Performed By: #### 1 759, 31319 #### [facility] [address], [address] [place] [address] Electrician Third: Salvador Swanson MD Urea nitrogen [Mass/Vol] 6 mg/dL Low 7-25 [facility] Comment on above: Performed By: #### 1 759, 55843 #### [facility] [address], [address] [place] [address] Electrician Third: Salvador Swanson MD Glucose Test strip manual (B ld) [Mass/Vol]on 01-15-2025 Glucose [Mass/Vol] 118 mg/dL High 74 - 99 mg/dL [facility] Interpretation and review of laboratory results Abnormal [facility] Glucose [Mass/Vol] 118 mg/dL High 74-99 [facility] Comment on above: Performed By: #### 4 548-4 #### QUIN Simon ([id number]) [facility] ([facility]) [address] [place] [address] US OB FOLLOW UP TRANSABDOMIN AL APPROACHon [...] EFW (oz) 8 oz EFW by: Hadlock ([id number]) Extended Front Desk 8.8 mm Head / Face / Neck [...] Suboptimal view: limited by late gestational age [facility] US for pregnancyon Interpreted by: Jasmina [...] EFW (oz) 8 oz EFW by: Hadlock ([id number]) Extended Front Desk 8.8 mm Head / Face / Neck [...] Gestational- on Insulin. History ====== General History Izjpys586 cm Height (ft)5 ft Height (in)4 in Previous Outcomes Tfcvqug76 Para5 Children born living ?37w1 Pregnancies delivered at term (T)1 Pregnancies delivered (P)4 Abortions (A)9 Living children (L)5 Children born living <37w4 Miscarriages9 Other:Vaginal Delivery Maternal Assessment Enlvum315 cm Height (ft)5 ft Height (in)4 in Vtwiuq233 kg Weight (lb)285 lb Weight gain0 kg Weight gain (lb)0 lb BMI48.92 kg/m Physical Exam Initial weight (lb)285 lb ========= Schilling . Number of fetuses: 1 Dating ====== Cycle:LMP date not known [place] by prior [id number] w + 3 d [place] by prior [...] (lb)3 lb EFW (oz)8 oz EFW by:Hadlock (GIN-BD-ZJ-FL) Extended Vp8.8 mm Head / Face / Neck Cephalic index0.79 54% Nicolaides Extremities / Bony Struc FL / BPD0.73 FL / HC0.20 FL / AC0.22 Other Structures SQI541 bpm Anatomy Cranium:Normal Lateral ventricles:Normal Midline falx:Normal [...] view: limited by late gestational age [facility] Work Phone: Radiology Study observation (narrative) [facility] Work Phone: US for pregnancyOrdered By: Jasmina Benítez on 01-15-2025 [facility] Work Phone: MR/BMS.BPon 01-13-2025 MR/BMS.BP [facility] CBC panel Auto (Bld)on 01-08 Erythrocyte distribution width (RBC) [Ratio] 13.1 % 11.5 - 14.5 % [facility] Hematocrit (Bld) [Volume fraction] 36.8 % 36.0 - 46.0 % [facility] Hemoglobin (Bld) [Mass/Vol] 11.6 g/dL Low 12.0 - 16.0 g/dL [facility] Interpretation and review of laboratory results Abnormal [facility] MCH (RBC) [Entitic mass] 29.2 pg 26.0 - 34.0 pg [facility] MCHC (RBC) [Mass/Vol] 31.5 g/dL Low 32.0 - 36.0 g/dL [facility] MCV (RBC) [Entitic vol] 93 fL 80 - 100 fL [facility] Nucleated RBC/100 WBC (Bld) [Ratio] 0 % [facility] Platelets (Bld) [#/Vol] 232 10*3/uL [facility] RBC (Bld) [#/Vol] 3.97 10*6/uL Low [facility] WBC (Bld) [#/Vol] 15.6 10*3/uL High [facility] Erythrocyte distribution width (RBC) [Ratio] 13.1 % Normal 11.5-14.[address] [facility] Comment on above: Performed By: #### 5 8410-2 #### QUIN Simon ([id number]) [facility] ([facility]) [address] [place] [address] 63394 Hematocrit (Bld) [Volume fraction] 36.8 % Normal 36.0-46.[address] [facility] Comment on above: Performed By: #### 5 8410-2 #### QUIN Simon ([id number]) [facility] ([facility]) [address] [place] [address] 42972 Hemoglobin (Bld) [Mass/Vol] 11.6 g/dL Low 12.0-16.[address] [facility] Comment on above: Performed By: #### 5 8410-2 #### QUIN Simon ([id number]) [facility] ([facility]) [address] [place] [address] MCH (RBC) [Entitic mass] 29.2 pg Normal 26.0-34.[address] [facility] Comment on above: Performed By: #### 5 8410-2 #### QUIN Simon ([id number]) [facility] ([facility]) [address] [place] [address] 90886 MCHC (RBC) [Mass/Vol] 31.5 g/dL Low 32.0-36.0 [facility] Comment on above: Performed By: #### 5 8410-2 #### QUIN Simon ([id number]) [facility] ([facility]) [address] [place] [address] 67457 MCV (RBC) [Entitic vol] 93 fL Normal 80-[address] [facility] Comment on above: Performed By: #### 5 8410-2 #### QUIN Simon ([id number]) [facility] ([facility]) [address] [place] [address] 04941 Nucleated RBC/100 WBC (Bld) [Ratio] 0.0 /100 WBCs Normal 0.0-0.[address] [facility] Comment on above: Performed By: #### 5 8410-2 #### QUIN Simon ([id number]) [facility] ([facility]) [address] [place] [address] 14810 Platelets (Bld) [#/Vol] 232 x10*3/uL Normal 150-[address] [facility] Comment on above: Performed By: #### 5 8410-2 #### QUIN Simon ([id number]) [facility] ([facility]) [address] [place] [address] 90637 RBC (Bld) [#/Vol] 3.97 x10*6/uL Low 4.00-5.20 [facility] Comment on above: Performed By: #### 5 8410-2 #### QUIN Simon ([id number]) [facility] ([facility]) [address] [place] [address] 62609 WBC (Bld) [#/Vol] 15.6 x10*3/uL High 4.4-11.3 [facility] Comment on above: Performed By: #### 5 8410-2 #### QUIN Simon ([id number]) [facility] ([facility]) [address] [place] [place] [id number] Comprehensive metabolic 2000 panelon 01-08-2025 Albumin BCP dye [Mass/Vol] 3.3 g/dL Low 3.4 - 5.0 g/dL [facility] ALP [Catalytic activity/Vol] 65 U/L 33 - 110 U/L [facility] ALT With P-5'-P [Catalytic activity/Vol] 6 U/L Low 7 - 45 U/L [facility] Comment on above: Patients treated wit h Sulfasalazine may generate falsely decreased results for ALT. Anion gap [Moles/Vol] 16 mmol/L 10 - 2 0 mmol/L [facility] AST With P-5'-P [Catalytic activity/Vol] 9 U/L 9 - 39 U/L [facility] Bilirubin [Mass/Vol] 0.5 mg/dL 0.0 - 1 .2 mg/dL [facility] Calcium [Mass/Vol] 8.8 mg/dL 8.6 - 10. 6 mg/dL [facility] Chloride [Moles/Vol] 106 mmol/L 98 - 10 7 mmol/L [facility] CO2 [Moles/Vol] 18 mmol/L Low 21 - 32 mmol/L [facility] Creatinine [Mass/Vol] 0.5 mg/dL 0.50 - 1.05 mg/dL [facility] eGFR - PINF [facility] Comment on above: Calculations of zoya mated GFR are performed using the 2020 CKD-EPI Study Refit equation without the race variable for the IDMS-Traceable creatinine methods. https://jasn.asnjournals.org/content/early/ASN.221659 2331 Glucose [Mass/Vol] 94 mg/dL 74 - 99 mg/dL [facility] Interpretation and review of laboratory results Abnormal [facility] Potassium [Moles/Vol] 4 mmol/L 3.5 - 5.3 mmol/L [facility] Protein [Mass/Vol] 6 g/dL Low 6.4 - 8.2 g/dL [facility] Sodium [Moles/Vol] 136 mmol/L 136 - 145 mmol/L [facility] Urea nitrogen [Mass/Vol] 7 mg/dL 6 - 23 mg/dL [facility] Albumin BCP dye [Mass/Vol] 3.3 g/dL Low 3.4-5.[address] [facility] Comment on above: Performed By: #### 5 8410-2 #### QUIN Simon ([id number]) [facility] ([facility]) [id number] [place] [address] 91189 ALP [Catalytic activity/Vol] 65 U/L Normal 33-[address] [facility] Comment on above: Performed By: #### 5 8410-2 #### QUIN Simon ([id number]) [facility] ([facility]) [address] [place] [address] 03630 ALT With P-5'-P [Catalytic activity/Vol] 6 U/L Low 7-[address] [facility] Comment on above: Result Comment: Nguyen ents treated with Sulfasalazine may generate falsely decreased results for ALT. Performed By: #### 5 8410-2 #### QUIN Simon ([id number]) [facility] ([facility]) [address] [place] [address] 49372 Anion gap [Moles/Vol] 16 mmol/L Normal 10-20 [facility] Comment on above: Performed By: #### 5 8410-2 #### QUIN HARTMAN L ([id number]) [facility] ([facility]) [address] [place] [address] AST With P-5'-P [Catalytic activity/Vol] 9 U/L Normal 9-[address] [facility] Comment on above: Performed By: #### 5 8410-2 #### QUIN HARTMAN L ([id number]) [facility] ([facility]) [address] [place] [address] 10906 Bilirubin [Mass/Vol] 0.5 mg/dL Normal 0.0-1.2 [facility] Comment on above: Performed By: #### 5 8410-2 #### QUIN HARTMAN L ([id number]) [facility] ([facility]) [address] [place] [address] 58240 Calcium [Mass/Vol] 8.8 mg/dL Normal 8.6-10.6 [facility] Comment on above: Performed By: #### 5 8410-2 #### QUIN HARTMAN L ([id number]) [facility] ([facility]) [address] [place] [address] 79495 Chloride [Moles/Vol] 106 mmol/L Normal 98-107 [facility] Comment on above: Performed By: #### 5 8410-2 #### QUIN HARTMAN L ([id number]) [facility] ([facility]) [address] [place] [address] 44783 CO2 [Moles/Vol] 18 mmol/L Low 21-32 [facility] Comment on above: Performed By: #### 5 8410-2 #### QUIN HARTMAN L ([id number]) [facility] ([facility]) [address] [place] [address] 99055 Creatinine [Mass/Vol] 0.50 mg/dL Normal 0.50-1.05 [facility] Comment on above: Performed By: #### 5 8410-2 #### QUIN HARTMAN L ([id number]) [facility] ([facility]) [address] [place] [address] 42311 GFR/1.73 sq M.predicted MDRD (S/P/Bld) [Vol rate/Area] mL/min/{1.73_m2} Normal >[address] [facility] Comment on above: Result Comment: Calc ulations of estimated GFR are performed using the 2020 CKD-EPI Study Refit equation without the race variable for the IDMS-Traceable creatinine methods. https://jasn.asnjournals.org/content//ASN.050571 8314 Performed By: #### 5 8410-2 #### QUIN Simon ([id number]) [facility] ([facility]) [address] [place] [address] 28882 Glucose [Mass/Vol] 94 mg/dL Normal 74-99 [facility] Comment on above: Performed By: #### 5 8410-2 #### QUIN Simon ([id number]) [facility] ([facility]) [address] [place] [address] 42537 Potassium [Moles/Vol] 4.0 mmol/L Normal 3.5-5.3 [facility] Comment on above: Performed By: #### 5 8410-2 #### QUIN Simon ([id number]) [facility] ([facility]) [address] [place] [address] 37173 Protein [Mass/Vol] 6.0 g/dL Low 6.4-8.2 [facility] Comment on above: Performed By: #### 5 8410-2 #### QUIN Simon ([id number]) [facility] ([facility]) [address] [place] [address] 66570 Sodium [Moles/Vol] 136 mmol/L Normal 136-145 [facility] Comment on above: Performed By: #### 5 8410-2 #### QUIN Simon ([id number]) [facility] ([facility]) [address] [place] [address] 46581 Urea nitrogen [Mass/Vol] 7 mg/dL Normal 6-[address] [facility] Comment on above: Performed By: #### 5 8410-2 #### QUIN Simon ([id number]) [facility] ([facility]) [address] [place] [address] 35194 Glucose Test strip manual (B ld) [Mass/Vol]on 01-08-2025 Glucose [Mass/Vol] 91 mg/dL 74 - 99 mg/dL [facility] Interpretation and review of laboratory results Normal [facility] Glucose [Mass/Vol] 91 mg/dL Normal 74-99 [facility] Comment on above: Performed By: #### 5 8410-2 #### QUIN Simon ([id number]) [facility] ([facility]) [address] [place] [address] 88277 Glucose [Mass/Vol] 172 mg/dL High 74-99 [facility] Comment on above: Performed By: #### 5 8410-2 #### QUIN Simon ([id number]) [facility] ([facility]) [address] [place] [address] 74717 Proteinon 01-08-2025 Protein Qn (U) 11 mg/dL Normal -[address] [facility] Comment on above: Performed By: #### 5 8410-2 #### QUIN Simon ([id number]) [facility] ([facility]) [address] [place] [address] 03363 Protein Qn (U)on 01-08-2025 Creatinine (U) [Mass/Vol] 46.3 mg/dL 20.0 - 320.0 mg/dL [facility] Interpretation and review of laboratory results Abnormal [facility] Protein/Creatinine (U) [Mass ratio] 0.24 mg/g High [facility] Creatinine (U) [Mass/Vol] 46.3 mg/dL Normal 20.0-320.[address] [facility] Comment on above: Performed By: #### 5 8410-2 #### QUIN Simon ([id number]) [facility] ([facility]) [address] [place] [address] 41145 Protein/Creatinine (U) [Mass ratio] 0.24 mg/mg Creat High 0.00-0.[address] [facility] Comment on above: Performed By: #### 5 8410-2 #### QUIN Simon ([id number]) [facility] ([facility]) [address] [place] [address] 52846 Protein, Urine Randomon 03-0 Protein Qn (U) 11 mg/dL 5 - 24 mg/dL [facility] US OB LIMITED 1+ FETUSESon 0 01-08-2025 OB LIMITED 1+ FETUSES Interpreted by: Nevaeh [...] view: limited by maternal body habitus Normal [facility] Urinalysis macro (dipstick) panel (U)on 01-08-2025 [facility] ([facility] fld) [facility] Bilirubin, UA Negative [facility] Work Phone: [phone] Blood, UA Negative [facility] Work Phone: Clarity, UA Clear [facility] Work Phone: Color, UA Yellow [facility] Work Phone: Glucose, UA Negative [facility] Work Phone: Ketones, UA Negative [facility] Work Phone: [phone] Leukocytes, UA TRACE [facility] Work Phone: Nitrite, UA Negative [facility] Work Phone: pH, UA 6 [facility] Work Phone: Protein, UA Negative [facility] Work Phone: Spec Grav, UA 1.015 [facility] Work Phone: Urobilinogen, UA 0.2 [facility] Work Phone: [facility] Work Phone: MR/BMS.BPon 01-06-2025 MR/BMS.BP Normal [facility] MR/BMS.BPon 01-02-2025 MR/BMS.BP Normal [facility] PROTEIN, TOTAL W/CREAT, RAND OM URINEon 01-02-2025 Creatinine (U) [Mass/Vol] 97 mg/dL Normal 20-275 [facility] Comment on above: Performed By: #### 1 715 #### [facility] [address], [address] [place] [address] Electrician Third: Salvador Swanson MD Protein (U) [Mass/Vol] 27 mg/dL High 5-24 [facility] Comment on above: Performed By: #### 1 715 #### [facility] [place] [address] Electrician Third: Salvador Swanson MD PROTEIN/CREATININE RATIO 278 mg/g creat High 24-184 [facility] Comment on above: Performed By: #### 1 715 #### [facility] [place] [address] Electrician Third: Salvador Swanson MD PROTEIN/CREATININE RATIO 0.278 mg/mg creat High 0.024-0.184 [facility] Comment on above: Performed By: #### 1 715 #### [facility] [place] [address] Electrician Third: Salvador Swanson MD Glucose Test strip manual (B ld) [Mass/Vol]on 01-01-2025 Glucose [Mass/Vol] 206 mg/dL High 74 - 99 mg/dL [facility] Interpretation and review of laboratory results Abnormal [facility] Glucose [Mass/Vol] 206 mg/dL High 74-99 [facility] Comment on above: Performed By: #### 5 8410-2 #### QUIN Simon ([id number]) [facility] ([facility]) [address] [place] [address] US OB FOLLOW UP TRANSABDOMIN AL APPROACHon [...] view: limited by maternal body habitus Normal [facility] US for pregnancyon Interpreted by: Carline [...] (BMI > 40) History ====== General History Bdktqb287 cm Height (ft)5 ft Height (in)4 in Previous Outcomes Pmsowtq09 Para5 Children born living ?37w1 Pregnancies delivered at term (T)1 Pregnancies delivered (P)4 Abortions (A)9 Living children (L)5 Children born living <37w4 Miscarriages9 Other:Vaginal Delivery Maternal Assessment Srfnca157 cm Height (ft)5 ft Height (in)4 in Cbsgfe729 kg Weight (lb)285 lb BMI48.92 kg/m ========= Schilling . Number of fetuses: 1 Dating ====== Cycle:LMP date not known [place] by prior [id number] w + 3 d [place] by prior [...] view: limited by maternal body habitus [facility] Work Phone: Radiology Study observation (narrative) [facility] Work Phone: US for pregnancyOrdered By: Carline Pollack on 01-01-2025 [facility] Work Phone: Glucose Test strip manual (B ld) [Mass/Vol]on 12-25-2024 Glucose [Mass/Vol] 166 mg/dL High 74 - 99 mg/dL [facility] Interpretation and review of laboratory results Abnormal [facility] Glucose [Mass/Vol] 166 mg/dL High 74-99 [facility] Comment on above: Performed By: #### 5 8410-2 #### QUIN Simon ([id number]) [facility] ([facility]) [address] [place] [address] 37580 Glucose [Mass/Vol] 148 mg/dL High 74 - 99 mg/dL [facility] Interpretation and review of laboratory results Abnormal [facility] Glucose [Mass/Vol] 148 mg/dL High 74-99 [facility] Comment on above: Performed By: #### 5 8410-2 #### QUIN Simon ([id number]) [facility] ([facility]) [address] [place] [address] 93620 Glucose [Mass/Vol] 159 mg/dL High 74 - 99 mg/dL [facility] Interpretation and review of laboratory results Abnormal [facility] Glucose [Mass/Vol] 159 mg/dL High 74-99 [facility] Comment on above: Performed By: #### 2 341-6 #### QUIN Simon ([id number]) [facility] ([facility]) [address] [place] [address] 91006 Blood type and Indirect anti body screen panel (Bld)on 12-24-2024 ABO group Nom (Bld) O [facility] Blood group antibody screen Ql Negative [facility] D Ag Ql (Bld) Positive [facility] Glucose Test strip manual (B ld) [Mass/Vol]on 12-24-2024 Glucose [Mass/Vol] 132 mg/dL High 74 - 99 mg/dL [facility] Interpretation and review of laboratory results Abnormal [facility] Glucose [Mass/Vol] 132 mg/dL High 74-99 [facility] Comment on above: Performed By: #### 2 341-6 #### QUIN Simon ([id number]) [facility] ([facility]) [address] [place] [address] 50070 Glucose [Mass/Vol] 160 mg/dL High 74 - 99 mg/dL [facility] Interpretation and review of laboratory results Abnormal [facility] Glucose [Mass/Vol] 160 mg/dL High 74-99 [facility] Comment on above: Performed By: #### 2 341-6 #### QUIN Simon ([id number]) [facility] ([facility]) [address] [place] [address] 65269 Glucose [Mass/Vol] 139 mg/dL High 74 - 99 mg/dL [facility] Interpretation and review of laboratory results Abnormal [facility] Glucose [Mass/Vol] 139 mg/dL High 74-99 [facility] Comment on above: Performed By: #### 2 341-6 #### QUIN Simon ([id number]) [facility] ([facility]) [address] [place] [address] 70882 Glucose [Mass/Vol] 153 mg/dL High 74 - 99 mg/dL [facility] Interpretation and review of laboratory results Abnormal [facility] Glucose [Mass/Vol] 153 mg/dL High 74-99 [facility] Comment on above: Performed By: #### 2 341-6 #### QUIN Simon ([id number]) [facility] ([facility]) [address] [place] [address] Glucose [Mass/Vol] 164 mg/dL High 74 - 99 mg/dL [facility] Interpretation and review of laboratory results Abnormal [facility] Glucose [Mass/Vol] 164 mg/dL High 74-99 [facility] Comment on above: Performed By: #### 2 341-6 #### QUIN Simon ([id number]) [facility] ([facility]) [address] [place] [address] US OB DETAIL ANATOMYon 12-24-2024 US OB [...] EFW (oz) 15 oz EFW by: Hadlock (XKN-VA-FU-FL) Extended Front Desk 6.7 mm Head / Face / Neck [...] Normal LVOT view: Normal 3-vessel view: Normal 6-grqguk-srauads view: Normal Heart / Thorax Cardiac axis: [...] Transabdominal ultrasound examination. View: Poor view Normal [facility] US for pregnancyon 5 Interpreted by: [...] EFW (oz) 15 oz EFW by: Hadlock (PTE-ZZ-IO-FL) Extended Front Desk 6.7 mm Head / Face / Neck [...] Normal LVOT view: Normal 3-vessel view: Normal 0-ujwzrb-afufdxw view: Normal Heart / Thorax Cardiac axis: [...] (BMI > 40) History ====== General History Lhzvbf039 cm Height (ft)5 ft Height (in)4 in Previous Outcomes Cwkndcq55 Para5 Children born living ?37w1 Pregnancies delivered at term (T)1 Pregnancies delivered (P)4 Abortions (A)9 Living children (L)5 Children born living <37w4 Miscarriages9 Other:Vaginal Delivery Maternal Assessment Dvodrp295 cm Height (ft)5 ft Height (in)4 in Zktxxt215 kg Weight (lb)285 lb BMI48.92 kg/m ========= Schilling . Number of fetuses: 1 Dating ====== Cycle:LMP date not known [place] by prior subtrhmljh10 w + 2 d [place] by prior [...] 74% Hadlock Femur46.3 mm25w 3d 39% Hadlock Rudzjxh17.1 mm 45% Chitty HC / AC1.13 HYU181 g25w 6d 74% Hadlock EFW (lb)1 lb EFW (oz)15 oz EFW by:Hadlock (TLC-RF-SB-FL) Extended Vp6.7 mm Head / Face / Neck Cephalic index0.78 48% Nicolaides Extremities / Bony Struc FL / BPD0.69 FL / HC0.19 FL / AC0.21 Other Structures UEV743 bpm Anatomy Cranium:Normal Lateral ventricles:Normal Choroid plexus:Normal Midline falx:Normal Cavum septi pellucidi:Normal Cerebellum:Normal Cisterna magna:Normal Head / Neck Thalami:Normal Lips:Normal Profile:Normal Nose:Normal 4-chamber view:Normal RVOT view:Normal LVOT view:Normal 3-vessel view:Normal 1-diecwa-uqxxffl view:Normal Heart / Thorax Cardiac axis:Normal Diaphragm:Normal [...] Transabdominal ultrasound examination. View: Poor view [facility] Work Phone: Radiology Study observation (narrative) [facility] Work Phone: US for pregnancyOrdered By: Earl Colorado on 12-24-2024 [facility] Work Phone: Beta hydroxybutyrate [Mass o r moles/Vol]on 12-23-2024 Beta hydroxybutyrate [Moles/Vol] 0.11 mmol/L 0.02 - 0.27 mmol/L [facility] The beta-hydroxybuty rate test performance characteristics have been validated by [facility]. This test has not been approved by the FDA; however such approval is not necessary. [facility] Beta hydroxybutyrate [Moles/Vol] 0.11 mmol/L Normal 0.02-0.[address] [facility] Comment on above: Order Comment: The b eta-hydroxybutyrate test performance characteristics have been validated by [facility]. This test has not been approved by the FDA; however such approval is not necessary. Performed By: #### 3 5255-9 #### QUIN Simon ([id number]) [facility] ([facility]) [address] [place] [address] Blood type and Indirect anti body screen panel (Bld)on 12-23-2024 ABO group Nom (Bld) O Normal [facility] Comment on above: Performed By: #### 2 341-6 #### QUIN Simon ([id number]) [facility] ([facility]) [address] [place], [place] [id number] Blood group antibody screen Ql Negative Normal [facility] Comment on above: Performed By: #### 2 341-6 #### QUIN Simon ([id number]) [facility] ([facility]) [address] [place] [address] D Ag Ql (Bld) Positive Normal [facility] Comment on above: Performed By: #### 2 341-6 #### QUIN Simon ([id number]) [facility] ([facility]) [address] [place], [place] [id number] CBC panel Auto (Bld)on 12-23 Erythrocyte distribution width (RBC) [Ratio] 13.3 % 11.5 - 14.5 % [facility] Hematocrit (Bld) [Volume fraction] 35.7 % Low 36.0 - 46.0 % [facility] Hemoglobin (Bld) [Mass/Vol] 12.1 g/dL 12.0 - 16.0 g/dL [facility] MCH (RBC) [Entitic mass] 29.7 pg 26.0 - 34.0 pg [facility] [facility] MCHC (RBC) [Mass/Vol] 33.9 g/dL 32.0 - 36.0 g/dL [facility] MCV (RBC) [Entitic vol] 88 fL 80 - 100 fL [facility] Nucleated RBC/100 WBC (Bld) [Ratio] 0 % [facility] Platelets (Bld) [#/Vol] 207 10*3/uL [facility] RBC (Bld) [#/Vol] 4.08 10*6/uL [facility] WBC (Bld) [#/Vol] 14.6 10*3/uL High [facility] Erythrocyte distribution width (RBC) [Ratio] 13.3 % Normal 11.5-14.[address] [facility] Comment on above: Performed By: #### 5 8410-2 #### QUIN Simon ([id number]) [facility] ([facility]) [address] [place] [address] 61889 Hematocrit (Bld) [Volume fraction] 35.7 % Low 36.0-46.[address] [facility] Comment on above: Performed By: #### 5 8410-2 #### QUIN Simon ([id number]) [facility] ([facility]) [address] [place] [address] 17189 Hemoglobin (Bld) [Mass/Vol] 12.1 g/dL Normal 12.0-16.[address] [facility] Comment on above: Performed By: #### 5 8410-2 #### QUIN Simon ([id number]) [facility] ([facility]) [address] [place] [address] 53593 MCH (RBC) [Entitic mass] 29.7 pg Normal 26.0-34.[address] [facility] Comment on above: Performed By: #### 5 8410-2 #### QUIN Simon ([id number]) [facility] ([facility]) [address] [place] [address] 20267 MCHC (RBC) [Mass/Vol] 33.9 g/dL Normal 32.0-36.0 [facility] Comment on above: Performed By: #### 5 8410-2 #### QUIN Simon ([id number]) [facility] ([facility]) [id number] [place] [address] 82678 MCV (RBC) [Entitic vol] 88 fL Normal 80-[address] [facility] Comment on above: Performed By: #### 5 8410-2 #### QUIN Simon ([id number]) [facility] ([facility]) [address] [place] [address] 31840 Nucleated RBC/100 WBC (Bld) [Ratio] 0.0 /100 WBCs Normal 0.0-0.[address] [facility] Comment on above: Performed By: #### 5 8410-2 #### QUIN Simon ([id number]) [facility] ([facility]) [address] [place] [address] 16253 Platelets (Bld) [#/Vol] 207 x10*3/uL Normal 150-[address] [facility] Comment on above: Performed By: #### 5 8410-2 #### QUIN Simon ([id number]) [facility] ([facility]) [address] [place] [address] 62808 RBC (Bld) [#/Vol] 4.08 x10*6/uL Normal 4.00-5.20 [facility] Comment on above: Performed By: #### 5 8410-2 #### QUIN Simon ([id number]) [facility] ([facility]) [address] [place] [address] 78446 WBC (Bld) [#/Vol] 14.6 x10*3/uL High 4.4-11.3 [facility] Comment on above: Performed By: #### 5 8410-2 #### QUIN Simon ([id number]) [facility] ([facility]) [address] [place] [address] 72836 Comprehensive metabolic 2000 panelon 12-23-2024 Albumin BCP dye [Mass/Vol] 3.5 g/dL 3.4 - 5.0 g/dL [facility] ALP [Catalytic activity/Vol] 75 U/L 33 - 110 U/L [facility] ALT With P-5'-P [Catalytic activity/Vol] 5 U/L Low 7 - 45 U/L [facility] Comment on above: Patients treated wit h Sulfasalazine may generate falsely decreased results for ALT. Anion gap [Moles/Vol] 17 mmol/L 10 - 2 0 mmol/L [facility] AST With P-5'-P [Catalytic activity/Vol] 9 U/L 9 - 39 U/L [facility] Bilirubin [Mass/Vol] 0.4 mg/dL 0.0 - 1 .2 mg/dL [facility] Calcium [Mass/Vol] 9.1 mg/dL 8.6 - 10. 6 mg/dL [facility] Chloride [Moles/Vol] 103 mmol/L 98 - 10 7 mmol/L [facility] CO2 [Moles/Vol] 17 mmol/L Low 21 - 32 mmol/L [facility] Creatinine [Mass/Vol] 0.45 mg/dL Low 0.50 - 1.05 mg/dL [facility] eGFR - PINF [facility] Comment on above: Calculations of zoya mated GFR are performed using the 2020 CKD-EPI Study Refit equation without the race variable for the IDMS-Traceable creatinine methods. https://jasn.asnjournals.org/content/early//ASN.093998 9358 Glucose [Mass/Vol] 234 mg/dL High 74 - 99 mg/dL [facility] Interpretation and review of laboratory results Abnormal [facility] Potassium [Moles/Vol] 3.8 mmol/L 3.5 - 5.3 mmol/L [facility] Protein [Mass/Vol] 6.5 g/dL 6.4 - 8.2 g/dL [facility] Sodium [Moles/Vol] 133 mmol/L Low 136 - 145 mmol/L [facility] Urea nitrogen [Mass/Vol] 5 mg/dL Low 6 - 23 mg/dL [facility] Albumin BCP dye [Mass/Vol] 3.5 g/dL Normal 3.4-5.[address] [facility] Comment on above: Performed By: #### 2 4323-8 #### QUIN Simon ([id number]) [facility] ([facility]) [address] [place] [address] ALP [Catalytic activity/Vol] 75 U/L Normal 33-[address] [facility] Comment on above: Performed By: #### 2 4323-8 #### QUIN HARTMAN L ([id number]) [facility] ([facility]) [address] [place] [address] ALT With P-5'-P [Catalytic activity/Vol] 5 U/L Low 7-[address] [facility] Comment on above: Result Comment: Nguyen ents treated with Sulfasalazine may generate falsely decreased results for ALT. Performed By: #### 2 4323-8 #### QUIN Simon ([id number]) [facility] ([facility]) [address] [place] [address] Anion gap [Moles/Vol] 17 mmol/L Normal 10-20 [facility] Comment on above: Performed By: #### 2 4323-8 #### QUIN Simon ([id number]) [facility] ([facility]) [address] [place] [address] AST With P-5'-P [Catalytic activity/Vol] 9 U/L Normal 9-[address] [facility] Comment on above: Performed By: #### 2 4323-8 #### QUIN Simon ([id number]) [facility] ([facility]) [address] [place] [address] Bilirubin [Mass/Vol] 0.4 mg/dL Normal 0.0-1.2 [facility] Comment on above: Performed By: #### 2 4323-8 #### QUIN Simon ([id number]) [facility] ([facility]) [address] [place] [address] 35370 Calcium [Mass/Vol] 9.1 mg/dL Normal 8.6-10.6 [facility] Comment on above: Performed By: #### 2 4323-8 #### QUIN Simon ([id number]) [facility] ([facility]) [address] [place] [address] Chloride [Moles/Vol] 103 mmol/L Normal 98-107 [facility] Comment on above: Performed By: #### 2 4323-8 #### QUIN HARTMAN L ([id number]) [facility] ([facility]) [address] [place] [address] CO2 [Moles/Vol] 17 mmol/L Low 21-32 [facility] Comment on above: Performed By: #### 2 4323-8 #### QUIN HARTMAN L ([id number]) [facility] ([facility]) [address] [place] [address] Creatinine [Mass/Vol] 0.45 mg/dL Low 0.50-1.05 [facility] Comment on above: Performed By: #### 2 4323-8 #### QUIN Simon ([id number]) [facility] ([facility]) [address] [place] [address] GFR/1.73 sq M.predicted MDRD (S/P/Bld) [Vol rate/Area] mL/min/{1.73_m2} Normal >[address] [facility] Comment on above: Result Comment: Calc ulations of estimated GFR are performed using the 2020 CKD-EPI Study Refit equation without the race variable for the IDMS-Traceable creatinine methods. https://jasn.asnjournals.org/content//ASN.043962 6734 Performed By: #### 2 4323-8 #### QUIN HARTMAN L ([id number]) [facility] ([facility]) [address] [place] [address] Glucose [Mass/Vol] 234 mg/dL High 74-99 [facility] Comment on above: Performed By: #### 2 4323-8 #### QUIN HARTMAN L ([id number]) [facility] ([facility]) [address] [place] [address] Potassium [Moles/Vol] 3.8 mmol/L Normal 3.5-5.3 [facility] Comment on above: Performed By: #### 2 4323-8 #### QUIN Simon ([id number]) [facility] ([facility]) [address] [place] [address] 03162 Protein [Mass/Vol] 6.5 g/dL Normal 6.4-8.2 [facility] Comment on above: Performed By: #### 2 4323-8 #### QUIN Simon ([id number]) [facility] ([facility]) [address] [place] [address] 06785 Sodium [Moles/Vol] 133 mmol/L Low 136-145 [facility] Comment on above: Performed By: #### 2 4323-8 #### QUIN Simon ([id number]) [facility] ([facility]) [address] [place] [address] 98345 Urea nitrogen [Mass/Vol] 5 mg/dL Low 6-[address] [facility] Comment on above: Performed By: #### 2 4323-8 #### QUIN Simon ([id number]) [facility] ([facility]) [address] [place] [address] 98941 Glucose Test strip manual (B ld) [Mass/Vol]on 12-23-2024 Glucose [Mass/Vol] 170 mg/dL High 74 - 99 mg/dL [facility] Interpretation and review of laboratory results Abnormal [facility] Glucose [Mass/Vol] 170 mg/dL High 74-99 [facility] Comment on above: Performed By: #### 2 341-6 #### QUIN Simon ([id number]) [facility] ([facility]) [address] [place] [address] 62480 Glucose [Mass/Vol] 146 mg/dL High 74 - 99 mg/dL [facility] Interpretation and review of laboratory results Abnormal [facility] Glucose [Mass/Vol] 146 mg/dL High 74-99 [facility] Comment on above: Performed By: #### 2 341-6 #### QUIN Simon ([id number]) [facility] ([facility]) [address] [place] [address] 34105 Glucose [Mass/Vol] 301 mg/dL High 74 - 99 mg/dL [facility] Interpretation and review of laboratory results Abnormal [facility] Glucose [Mass/Vol] 301 mg/dL High 74-99 [facility] Comment on above: Performed By: #### 2 341-6 #### QUIN Simon ([id number]) [facility] ([facility]) [address] [place] [address] 70509 Glucose [Mass/Vol] 303 mg/dL High 74 - 99 mg/dL [facility] Interpretation and review of laboratory results Abnormal [facility] Glucose [Mass/Vol] 303 mg/dL High 74-99 [facility] Comment on above: Performed By: #### 2 341-6 #### QUIN Simon ([id number]) [facility] ([facility]) [address] [place] [address] 98218 HbA1c (Bld) [Mass fraction]o n 12-23-2024 Average glucose Estimated from glycated hemoglobin (Bld) [Mass/Vol] 140 mg/dL Not Established [facility] Diagnosis of Diabetes-Adults Non-Diabetic: < or = 5.6% Increased risk for developing diabetes: 5.7-6.4% Diagnostic of diabetes: > or = 6.5% [facility] Average glucose Estimated from glycated hemoglobin (Bld) [Mass/Vol] 140 mg/dL Normal Not Established [facility] Comment on above: Order Comment: Diagn osis of Diabetes-Adults Non-Diabetic: < or = 5.6% Increased risk for developing diabetes: 5.7-6.4% Diagnostic of diabetes: > or = 6.5% Performed By: #### 4 548-4 #### QUIN Simon ([id number]) [facility] ([facility]) [address] [place] [address] 34270 Hemoglobin A1con 12-23-2024 HbA1c (Bld) [Mass fraction] 6.5 % High See comment [facility] Hemoglobin A1c/Hemoglobin.to perico 12-23-2024 HbA1c (Bld) [Mass fraction] 6.5 % High See comment [facility] Comment on above: Order Comment: Diagn osis of Diabetes-Adults Non-Diabetic: < or = 5.6% Increased risk for developing diabetes: 5.7-6.4% Diagnostic of diabetes: > or = 6.5% Performed By: #### 4 548-4 #### QUIN Simon ([id number]) [facility] ([facility]) [address] [place] [address] Lactate Dehydrogenaseon 12-06 LDH Lactate to pyruvate reaction [Catalytic activity/Vol] 152 U/L 84 - 246 U/L [facility] Lactate dehydrogenaseon 12-06 LDH Lactate to pyruvate reaction [Catalytic activity/Vol] 152 U/L Normal 84-[address] [facility] Comment on above: Performed By: #### 1 4804-9 #### QUIN Simon ([id number]) [facility] ([facility]) [address] [place] [address] No Panel Informationon 12-23 Interpretation and review of laboratory results Normal [facility] Interpretation and review of laboratory results Abnormal [facility] POCT UA (nonautomated) alphonse castelan resultedon 12-23-2024 Appearance (U) Clear Clear [facility] Work Phone: Glucose Test strip (U) [Mass/Vol] 500 (3+) Abnormal NEGATIVE mg/dl [facility] Work Phone: Hemoglobin Ql (U) Negative NEGATIVE [facility] Work Phone: Interpretation and review of laboratory results Abnormal [facility] Work Phone: Leukocyte esterase Test strip Ql (U) Negative NEGATIVE [facility] Work Phone: Nitrite Ql (U) Negative NEGATIVE [facility] Work Phone: pH (U) 5.5 [pH] No Reference Range Established [facility] Work Phone: [phone] POC Bilirubin, Urine Negative NEGATIVE [facility] Work Phone: [phone] POC Color, Urine Yellow Straw, Yellow, Light-Yellow [facility] Work Phone: [phone] POC Ketones, Urine Negative NEGATIVE mg/dl [facility] Work Phone: [phone] POC Protein, Urine 15 (1+) Abnormal NEGATIVE mg/dl [facility] Work Phone: [phone] POC Specific Yarnell, Urine 1.025 1.005 - 1.035 [facility] Work Phone: Comment on above: 1.030, but not an op tion POC Urobilinogen, Urine 0.2 0.2, 1.0 EU/DL [facility] Work Phone: [facility] Work Phone: Proteinon 12-23-2024 Protein Qn (U) 8 mg/dL Normal 5-[address] [facility] Comment on above: Performed By: #### 2 7298-9 #### QUIN Simon ([id number]) [facility] ([facility]) [address] [place] [address] 27978 Protein Qn (U)on 12-23-2024 Creatinine (U) [Mass/Vol] 30.1 mg/dL 20.0 - 320.0 mg/dL [facility] Interpretation and review of laboratory results Abnormal [facility] Protein/Creatinine (U) [Mass ratio] 0.27 mg/g High [facility] Creatinine (U) [Mass/Vol] 30.1 mg/dL Normal 20.0-320.[address] [facility] Comment on above: Performed By: #### 2 7298-9 #### QUIN Simon ([id number]) [facility] ([facility]) [address] [place] [address] 39949 Protein/Creatinine (U) [Mass ratio] 0.27 mg/mg Creat High 0.00-0.[address] [facility] Comment on above: Performed By: #### 2 7298-9 #### QUIN Simon ([id number]) [facility] ([facility]) [address] [place] [address] 24865 Protein, Urine Randomon 12-06 Protein Qn (U) 8 mg/dL 5 - 24 mg/dL [facility] Syphilis Screen with ReflexO rdered By: Naya Khan on 12-23-2024 T. pallidum IgG+IgM IA Ql (S) Non-Reactive Nonreactive [facility] Comment on above: No significant level of Treponema pallidum antibody detected. Repeat testing in 2 to 4 weeks may be considered if early infection or incubating syphilis infection is suspected. T. pallidum IgG+IgM IA Ql (S )Ordered By: Naya Khan on 12-23-2024 Interpretation and review of laboratory results Normal [facility] Treponema pallidum Ab.IgG+Ig Mon 12-23-2024 T. pallidum IgG+IgM IA Ql (S) Non-Reactive Normal Nonreactive [facility] Comment on above: Order Comment: This test is for Syphilis screening, for Syphilis monitoring order RPR with Titer, Syphilis Monitoring Result Comment: No s ignificant level of Treponema pallidum antibody detected. Repeat testing in 2 to 4 weeks may be considered if early infection or incubating syphilis infection is suspected. Performed By: #### 2 341-6 #### QUIN Simon ([id number]) [facility] ([facility]) [address] [place] [address] 58357 Urateon 12-23-2024 Urate [Mass/Vol] 2.3 mg/dL Normal 2.3-6.7 [facility] Comment on above: Result Comment: Jessica puncture immediately after or during the administration of Metamizole may lead to falsely low results. Testing should be performed immediately prior to Metamizole dosing. Performed By: #### 3 084-1 #### QUIN Simon ([id number]) [facility] ([facility]) [id number] [place] [address] 37860 Urate [Mass/Vol]on Interpretation and review of laboratory results Normal [facility] Uric Acidon 12-23-2024 Urate [Mass/Vol] 2.3 mg/dL 2.3 - 6.7 mg/dL [facility] Comment on above: Venipuncture immedia tely after or during the administration of Metamizole may lead to falsely low results. Testing should be performed immediately prior to Metamizole dosing. Urinalysis macro (dipstick) panel (U)on 12-23-2024 Appearance (Body fld) Clear [facility] Work [facility]: Bilirubin, UA Negative [facility] Work Phone: [phone] Blood, UA Negative [facility] Work Phone: [phone] Clarity, UA Clear [facility] Work Phone: [phone] Color, UA Light-Yellow [facility] Work Phone: [phone] Glucose, UA 3+ [facility] Work Phone: [phone] Interpretation and review of laboratory results Abnormal [facility] Work Phone: [phone] Ketones, UA Negative [facility] Work Phone: [phone] Leukocytes, UA Negative [facility] Work Phone: [phone] Nitrite, UA Negative [facility] Work Phone: [phone] pH, UA 5.5 [facility] Work Phone: [phone] Protein, UA Negative [facility] Work Phone: Spec Grav, UA 1.015 [facility] Work Phone: Urobilinogen, UA 0.2 [facility] Work Phone: [facility] Work Phone: Urine Cultureon 12-19-2024 URC Mixed Gram Positive Organisms Ingalls Count 1000-10,000 MIXC Mixed contaminants. Submit a new specimen if indicated. Normal [facility] Comment on above: Performed By: #### M 100.2200 ####[facility] [address] [place], [address] [facility] Office Visit Reporton 12-17-2024 [facility] Office Visit Report Normal [facility] MR/BMS.BPon 12-08-2024 MR/BMS.BP Normal [facility] MR/BMS.BPon 12-03-2024 MR/BMS.BP Normal [facility] Office Visiton 11-25-2024 Follow-up visit [id number] Ari Tinsley 1991 F Date Provider Department Center 11/25/2024 [id number] None Chart Close Cosign Required [...] Alive Paternal Grandmother Alive Level of Service:0500F GA INITIAL CARE VISIT () Reason for Visit and Comments: New Patient [542] - C/o baby being low and it hurts to walk [facility] Progress Noteon 11-25-2024 Progress Note Pt states she feels baby moving [facility] Progress Note ----- ----- Attestation signed by Izabel Whipple MD at 12/10/2024 9:56 AM [facility]: This patient was seen in [...] Alcohol Use: No Drug Use: No Occupation: [employer] Review of Systems: Pertinent items are noted [...] to delivery with HROB/cMFM and care with [facility]. Patient very hesitent to discuss OB History [...] is donor, Patient reported getting sperm [place] [facility], obtained two vials, Home insemination, but potential that this could be ex husbands baby Female infants born ([facility], patient declined signing ROR to this [...] then wanting to discuss birthing options at [facility] Facility: labor: -My fix all for labor is 50mg IV benadryl and IV phenergan, because a thow up fit will cause me to go into labor, discussed that althoug (more content not included)... Normal [facility] MR/BMS.BPon 11-21-2024 MR/BMS.BP Normal [facility] Office Visit Reporton 11-18-2024 Z[facility] Skimmer Office Visit Report Normal [facility] Basic Metabolic Profile (BMP )on 11-13-2024 BUN/CRE 10.9 RATIO Normal 10-20 [facility] Comment on above: Performed By: #### L 501.5200, L500.2500 ####[facility] [address] [place], [address] CA,Total 9.1 mg/dL Normal 8.5-10.1 [facility] Comment on above: Performed By: #### L 501.5200, L500.2500 ####[facility] [address] [place], [address] Chloride [Moles/Vol] 109 mmol/L High 98-107 [facility] Comment on above: Performed By: #### L 501.5200, L500.2500 ####[facility] [address] [place], [address] CO2 [Moles/Vol] 24.0 mmol/L Normal 21.0-32.0 [facility] Comment on above: Performed By: #### L 501.5200, L500.2500 ####[facility] [address] [place], [address] Creatinine [Mass/Vol] 0.55 mg/dL Normal 0.55-1.02 [facility] Comment on above: Result Comment: The validity of the calculated GFR GFRAA in patients over70 years has not been determined. Clinical correlation isessential. Performed By: #### L 501.5200, L500.2500 ####[facility] [address] [place], [address] ECRCL 182.69 ml/min Normal [facility] Comment on above: Performed By: #### L 501.5200, L500.2500 ####[facility] [address] [place], [address] EST GFR - AA 162 mL/min Normal >60 [facility] Comment on above: Result Comment: Afri can [place] GFR Calc Performed By: #### L 501.5200, L500.2500 ####[facility] [address] [place], [address] GAP 4 Low 5-15 [facility] Comment on above: Performed By: #### L 501.5200, L500.2500 ####[facility] [address] [place], [address] GFR/1.73 sq M.predicted among non-blacks MDRD (S/P/Bld) [Vol rate/Area] 134 mL/min/{1.73_m2} Normal >60 [facility] Comment on above: Result Comment: Non- GFR Calc Performed By: #### L 501.5200, L500.2500 ####[facility] [address] [place], [address] Glucose [Mass/Vol] 110 mg/dL High 74-106 [facility] Comment on above: Result Comment: Fast ing Glucose result from 100 to 125 mg/dLsuggests IMPAIRED HOMEOSTASIS per A.D.A. criteria. Performed By: #### L 501.5200, L500.2500 ####[facility] [address] [place], [address] Potassium [Moles/Vol] 3.7 mmol/L Normal 3.5-5.1 [facility] Comment on above: Performed By: #### L 501.5200, L500.2500 ####[facility] [address] [place], [address] Sodium [Moles/Vol] 137 mmol/L Normal 136-145 [facility] Comment on above: Performed By: #### L 501.5200, L500.2500 ####[facility] [address] [place], [address] Urea nitrogen [Mass/Vol] 6 mg/dL Low 7-18 [facility] Comment on above: Performed By: #### L 501.5200, L500.2500 ####[facility] [address] [place], [address] Emergency Department Summary on 11-13-2024 Emergency Department Summary Normal [facility] M100.678on 11-13-2024 M100.678 Pending SARS-CoV-2 (COVID 19) Negative INFLUENZA A Negative INFLUENZA B Negative RSV PCR Negative Normal [facility] Comment on above: Performed By: #### M 100.678, L400.0001 ####[facility] [address] [place], [address] Magnesiumon 11-13-2024 Magnesium [Mass/Vol] 1.8 mg/dL Normal 1.6-2.6 [facility] Comment on above: Performed By: #### L 501.5200, L500.2500 ####[facility] [address] [place], [address] Urinalysis, Completeon 11-13 EPI,SQUAMOUS 0-5 SEEN Normal 5-10 [facility] Comment on above: Order Comment: COLLE CTOR TO SPECIFY Performed By: #### M 100.678, L400.0001 ####[facility] [address] [place], [address] BACTERIA 0 SEEN Normal None Seen [facility] Comment on above: Order Comment: COLLE CTOR TO SPECIFY Performed By: #### M 100.678, L400.0001 ####[facility] [address] [place], [address] Mucus Ql (Urine sed) 0 SEEN Normal [facility] Comment on above: Order Comment: COLLE CTOR TO SPECIFY Performed By: #### M 100.678, L400.0001 ####[facility] [address] [place], [address] RBC 0 SEEN Normal 0-5 [facility] Comment on above: Order Comment: STARR CTOR TO SPECIFY Performed By: #### M 100.678, L400.0001 ####[facility] [address] [place], [address] WBC 0 SEEN Normal 0-5 [facility] Comment on above: Order Comment: COLLE CTOR TO SPECIFY Performed By: #### M 100.678, L400.0001 ####[facility] [address] [place], [address] MR/BMS.BPon 10-24-2024 MR/BMS.BP Normal [facility] Office Visit Reporton 10-24-2024 [facility] Office Visit Report Normal [facility] Urgent Care Visit Reporton 1 12-16-2023 Urgent Care Visit Report Normal [facility] Brain/Head without Contrasto n 10-14-2024 Brain/Head without Contrast Normal [facility] Urgent Care Visit Reporton 1 12-14-2023 Urgent Care Visit Report Normal [facility] Hepatitis B Core Ab Totalon 10-11-2024 HEP B CORE,TOT Negative Normal Negative [facility] Comment on above: Result Comment: Perf ormed at: - [facility] [address] [id number] Director: Waylon Wang PhD, Phone: [phone] Performed By: #### L 509.4449, H6298.7240, L3100.4410, L3670.6100 ####[facility] [address] [place], [address] Hepatitis B Surface Antigeno n 10-10-2024 HEP B Surf Ag Non-Reactive Normal Nonreactive [facility] Comment on above: Performed By: #### L 509.8000, L3890.6300, L3100.0460, L3890.6100 ####[facility] [address] [place], [address] Hepatitis C Antibodyon 10-10 Hepatitis C AB Non-Reactive Normal Nonreactive [facility] Comment on above: Result Comment: Non Reactive: < 0.8 Equivocal: >/= 0.8 to < 1.0 Reactive: >/= 1.0The [facility] requires that a reactive/equivocal HCV antibodyresult be sent out for confirmation. HCV Quant by PCRtesting. Performed By: #### L 509.8000, L3890.6300, L3100.0460, L3890.6100 ####[facility] [address] [place], [address] L509.8000on 10-10-2024 Syphilis Abs Non-Reactive Normal [facility] Comment on above: Performed By: #### L 509.8000, L3890.6300, L3100.0460, L3890.6100 ####[facility] [address] [place], [address] Zinc Skimmer Office Visit Reporton 10-10-2024 Zinc Skimmer Office Visit Report Normal [facility] Emergency Department Summary on 10-09-2024 Emergency Department Summary Normal [facility] Office Visit Reporton 2023 Office Visit Report Normal [facility] Anticardiolipin IgG, IgMon 1 11-30-2023 ANTICARDIO IgG < 9 Normal 0-14 [facility] Comment on above: Result Comment: Nega tive: <15 Indeterminate: 15 - 20 Low-Med Positive: >20 - 80 High Positive: >80 Performed By: #### L 4500.2000, L3100.8410, L3410.2000, L4500.5000, L4500.0100 ####[facility] [address] [place], [address] Anticardio.IgM < 9 Normal 0-12 [facility] Comment on above: Result Comment: Nega tive: <13 Indeterminate: 13 - 20 Low-Med Positive: >20 - 80 High Positive: >80 Performed By: #### L 4500.1999, L3100.8410, L3410.2000, L4500.5000, L4500.0100 ####[facility] [address] [place], [address] Beta-2 Glycoprot IgG, A, 09-30-2024 B2 GLYCO I IGA <9 Normal 0-25 [facility] Comment on above: Result Comment: Resu lt Units: GPI IgA unitsThe reference interval reflects a 3SD or 99th percentileinterval, which is thought to represent a potentiallyclinically significant result in accordance with theInternational Consensus Statement on the classificationcriteria for definitive antiphospholipid syndrome (APS). JThromb Haem 2006;4:295-306. Performed By: #### L 4500.1999, L3100.8410, L3410.1999, L4500.5000, L4500.0100 ####[facility] [address] [place], [address] B2 GLYCO I IGG <9 Normal 0-20 [facility] Comment on above: Result Comment: Resu lt Units: GPI IgG unitsThe reference interval reflects a 3SD or 99th percentileinterval, which is thought to represent a potentiallyclinically significant result in accordance with theInternational Consensus Statement on the classificationcriteria for definitive antiphospholipid syndrome (APS). JThromb Haem 2006;4:295-306. Performed By: #### L 4500.1999, L3100.8410, L3410.2000, L4500.5000, L4500.0100 ####[facility] [address] [place], [address] B2 GLYCO I IGM <9 Normal 0-32 [facility] Comment on above: Result Comment: Resu lt Units: GPI IgM unitsThe reference interval reflects a 3SD or 99th percentileinterval, which is thought to represent a potentiallyclinically significant result in accordance with theInternational Consensus Statement on the classificationcriteria for definitive antiphospholipid syndrome (APS). JThromb Haem 2006;4:295-306. Performed By: #### L 4500.2000, L3100.8410, L3410.2000, L4500.5000, L4500.0100 ####[facility] [address] [place], [address] Fact V Leiden Mutationon FACTOR V LEIDEN Comment Normal . [facility] Comment on above: Result Comment: Resu lt: c.1601G>A (p.Ftd031Yxi) - Not DetectedThis result is not associated with an increased risk for venousthromboembolism. See Additional Clinical Information andComments.Additional Clinical Information:Venous thromboembolism is a multifactorial diseaseinfluenced by genetic, environmental, and circumstantialrisk factors. The c.1601G>A (p. Onj616Fuc) variant in theF5 gene, commonly referred to [...] F2 c.*97G>Avariant and Factor V Leiden (PMID: 39170199). Additionalrisk factors include but are not limited [...] for health careproviders to discuss results at [phone] [place] [facility] [place]Test Details:Variant Analyzed: c.1601G>A (p. Qfb892Uiq), referred toas Factor V LeidenMethods/Limitations:DNA analysis of [...] was developed and its performance characteristicsdetermined by [employer]. It has not been cleared orapproved by the Food and Drug Administration.References:Carlos Flanagan, Rosalia GUZMAN, Delonte R, Virgie WW, Nba JH; ACMGProfessional Practice and Guidelines Committee. Addendum:[place] [employer] consensus statement onfactor V Leiden mutation testing. [employer]. 2020Jan 07.doi: 10.1038/f23820-196-13315-b. PMID: 98931559.Leah CHAVEZ. Factor V Leiden Thrombophilia. 1998March 18(Updated 2017Nov 08). In: Jarrod MP, Yancy HH, Celso RA,et al., editors. Siobhan(R) (Internet). [place] ([place]):[facility], [place]; 0563-5346. Availablefrom: https://www.ncbi.nlm.nih.gov/books/ZRK4587/Rodney Flanagan, Rosalia GUZMAN, Sumit X, Tam B, Dirk EB, Blank P,Marc CS; [facility] Laboratory Siderographist Committee.Venous thromboembolism laboratory testing (factor V Leidenand factor II c.*97G>A), 2018 update: a technical standardof the [place] [employer] and [employer]omics(ACMG). [employer]. 2018 Oct;20(12):4209-9415. doi:10.1038/[id number]-d. Epub 2017Aug 09. PMID: 63800380. Performed By: #### L 4500.2000, L3100.8410, L3410.2000, L4500.5000, L4500.0100 ####[facility] [address] [place], [address] Reviewed By Comment Normal . [facility] Comment on above: Result Comment: Tech nical Component performed at [facility] RTPProfessional Component performed by:[facility]. Quin Aguila, Ph.D., FACMGDirector, Molecular Ulfadfgt31086 [facility] Performed By: #### L 4500.2000, L3100.8410, L3410.2000, L4500.5000, L4500.0100 ####[facility] [address] [place], [address] Factor II, DNA Analysison FACTOR II, DNA Comment Normal . [facility] Comment on above: Result Comment: Resu [...] in theF2 gene and a c.1601G>A (p. Ycy986Nqc) variant in the F5 gene(commonly referred to as Factor V Leiden) have an approximately 20-fold increased risk for venous thromboembolism. Risks are likely laz even higher in more complex genotype combinations involving theF2 c.*97G>A variant and Factor V Leiden (PMID: 19487042). Additionalrisk factors include but are not limited [...] for health care providers to discussresults at [phone] ([phone]).Test Details:Variant analyzed: c.*97G>A, previously referred to as [id number]/Limitations:DNA analysis of the F2 gene (NM_000506.5) was [...] was developed and its performance characteristics determinedby [employer]. It has not been cleared or approved by the Food and DrugAdministration.References:Carlos S, Rosalia AK, Delonte R, Virgie WW, Nba JH; ACMG ProfessionalPractice and Guidelines Committee. Addendum: [place] [employer] consensus statement on factor V Leiden mutationtesting. [employer]. 2020Jan 07. doi: 10.1038/[id number]-y.PMID: 59807079.Leah CHAVEZ. Prothrombin Thrombophilia. 2005May 29[Updated 2020Dec 09]. In: Jarrod MP, Yancy HH, Pagon RA, et al.,editors. Siobhan(Nain) [Internet]. [place] ([place]): [facility]; 1981-7816. Available from:https://www.ncbi.nlm.nih.gov/books/VUG7980/Rodney S, Rosalia AK, Sumit X, Tam B, Dirk EB, Blank P, Marc CS;[facility] Laboratory Siderographist Committee. Venous thromboembolismlaboratory testing (factor V Leiden and factor II c.*97G>A),2018 update: a technical standard of the [place] [employer] and Gen[employer] (ACMG). [employer]. 2018 Oct;20(12):8724-6586.doi: 10.1038/[id number]-t. Epub 2017Aug 09. PMID: 38174776. Performed By: #### L 4500.2000, L3100.8410, L3410.2000, L4500.5000, L4500.0100 ####[facility] [address] [place], [place], [address] Lupus Anticoagulant Compon 1 11-30-2023 aPTT Coag (Bld) [Time] 31.7 s Normal 0.0-43.5 [facility] Comment on above: Performed By: #### L 4500.2000, L3100.8410, L3410.2000, L4500.5000, L4500.0100 ####[facility] [address] [place], [address] DILUTE PT (dPT) 35.1 sec Normal 0.0-47.6 [facility] Comment on above: Performed By: #### L 4500.2000, L3100.8410, L3410.2000, L4500.5000, L4500.0100 ####[facility] [address] [place], [address] dPT Conf. Ratio 1.13 Ratio Normal 0.00-1.34 [facility] Comment on above: Performed By: #### L 4500.2000, L3100.8410, L3410.2000, L4500.5000, L4500.0100 ####[facility] [address] [place], [address] DRVVT 33.0 sec Normal 0.0-47.0 [facility] Comment on above: Performed By: #### L 4500.2000, L3100.8410, L3410.2000, L4500.5000, L4500.0100 ####[facility] [address] [place], [address] Interpretation Comment: Normal . [facility] Comment on above: Result Comment: No l upus anticoagulant was detected. Performed By: #### L 4500.2000, L3100.8410, L3410.2000, L4500.5000, L4500.0100 ####[facility] [address] [place], [address] THROMBIN TIME 14.7 sec Normal 0.0-23.0 [facility] Comment on above: Performed By: #### L 4500.2000, L3100.8410, L3410.2000, L4500.5000, L4500.0100 ####[facility] [address] [place], [address] Urine Cultureon 09-27-2024 URC Mixed Gram Positive Organisms Ingalls Count 11,000-25,000 MIXC Mixed contaminants. Submit a new specimen if indicated. Normal [facility] Comment on above: Performed By: #### M 100.2200 ####[facility] [address] [place], [address] CBC W/Diff, Automatedon 11- PLT EST ADEQUATE Normal ADEQ [facility] Comment on above: Performed By: #### B TS, L100.0100, L3890.6005, L900.0098, L509.4005, L3890.6300, L500.4050, L501.9985, L509.8000, L3890.6100 ####[facility] [address] [place], [address] SMEAR COMMENT SCANNED Normal [facility] Comment on above: Performed By: #### B TS, L100.0100, L3890.6005, L900.0098, L509.4005, L3890.6300, L500.4050, L501.9985, L509.8000, L3890.6100 ####[facility] [address] [place], [address] Comprehensive Metabolic Prof [facility] 09-25-2024 Albumin [Mass/Vol] 3.5 g/dL Normal 3.2-5.0 [facility] Comment on above: Performed By: #### B TS, L100.0100, L3890.6005, L900.0098, L509.4005, L3890.6300, L500.4050, L501.9985, L509.8000, L3890.6100 ####[facility] [address] [place], [place], [address] Albumin/Globulin [Mass ratio] 0.9 {ratio} Normal 0.9-2.4 [facility] Comment on above: Performed By: #### B TS, L100.0100, L3890.6005, L900.0098, L509.4005, L3890.6300, L500.4050, L501.9985, L509.8000, L3890.6100 ####[facility] [address] [place], [address] ALK P 67 U/L Normal 45-117 [facility] Comment on above: Performed By: #### B TS, L100.0100, L3890.6005, L900.0098, L509.4005, L3890.6300, L500.4050, L501.9985, L509.8000, L3890.6100 ####[facility] [address] [place], [address] ALT [Catalytic activity/Vol] 21 U/L Normal 13-56 [facility] Comment on above: Performed By: #### B TS, L100.0100, L3890.6005, L900.0098, L509.4005, L3890.6300, L500.4050, L501.9985, L509.8000, L3890.6100 ####[facility] [address] [place], [place], [phone] AST [Catalytic activity/Vol] 16 U/L Normal 15-37 [facility] Comment on above: Performed By: #### B TS, L100.0100, L3890.6005, L900.0098, L509.4005, L3890.6300, L500.4050, L501.9985, L509.8000, L3890.6100 ####[facility] [address] [place], [place], [phone](447) Bilirubin [Mass/Vol] 0.70 mg/dL Normal 0.20-1.00 [facility] Comment on above: Result Comment: For patients on eltrombopag therapy, use of Dimension [place] TBIL is not recommended. Performed By: #### B TS, L100.0100, L3890.6005, L900.0098, L509.4005, L3890.6300, L500.4050, L501.9985, L509.8000, L3890.6100 ####[facility] [address] [place], [place], [phone](291) BUN/CRE 20.0 RATIO Normal 10-20 [facility] Comment on above: Performed By: #### B TS, L100.0100, L3890.6005, L900.0098, L509.4005, L3890.6300, L500.4050, L501.9985, L509.8000, L3890.6100 ####[facility] [address] [place], [address] CA,Total 9.4 mg/dL Normal 8.5-10.1 [facility] Comment on above: Performed By: #### B TS, L100.0100, L3890.6005, L900.0098, L509.4005, L3890.6300, L500.4050, L501.9985, L509.8000, L3890.6100 ####[facility] [address] [place], [address] Chloride [Moles/Vol] 106 mmol/L Normal 98-107 [facility] Comment on above: Performed By: #### B TS, L100.0100, L3890.6005, L900.0098, L509.4005, L3890.6300, L500.4050, L501.9985, L509.8000, L3890.6100 ####[facility] [address] [place], [place], [phone] CO2 [Moles/Vol] 23.0 mmol/L Normal 21.0-32.0 [facility] Comment on above: Performed By: #### B TS, L100.0100, L3890.6005, L900.0098, L509.4005, L3890.6300, L500.4050, L501.9985, L509.8000, L3890.6100 ####[facility] [address] [place], [address] Creatinine [Mass/Vol] 0.65 mg/dL Normal 0.55-1.02 [facility] Comment on above: Result Comment: The validity of the calculated GFR GFRAA in patients over70 years has not been determined. Clinical correlation isessential. Performed By: #### B TS, L100.0100, L3890.6005, L900.0098, L509.4005, L3890.6300, L500.4050, L501.9985, L509.8000, L3890.6100 ####[facility] [address] [place], [place], [address] EST GFR - AA 134 mL/min Normal >60 [facility] Comment on above: Result Comment: Afri can [place] GFR Calc Performed By: #### B TS, L100.0100, L3890.6005, L900.0098, L509.4005, L3890.6300, L500.4050, L501.9985, L509.8000, L3890.6100 ####[facility] [address] [place], [place], [phone] GAP 7 Normal 5-15 [facility] Comment on above: Performed By: #### B TS, L100.0100, L3890.6005, L900.0098, L509.4005, L3890.6300, L500.4050, L501.9985, L509.8000, L3890.6100 ####[facility] [address] [place], [place], [address] GFR/1.73 sq M.predicted among non-blacks MDRD (S/P/Bld) [Vol rate/Area] 111 mL/min/{1.73_m2} Normal >60 [facility] Comment on above: Result Comment: Non- GFR Calc Performed By: #### B TS, L100.0100, L3890.6005, L900.0098, L509.4005, L3890.6300, L500.4050, L501.9985, L509.8000, L3890.6100 ####[facility] [address] [place], [place], [address] Globulin (S) [Mass/Vol] 3.9 g/dL Normal 2.2-4.2 [facility] Comment on above: Performed By: #### B TS, L100.0100, L3890.6005, L900.0098, L509.4005, L3890.6300, L500.4050, L501.9985, L509.8000, L3890.6100 ####[facility] [address] [place], [address] Glucose [Mass/Vol] 93 mg/dL Normal 74-106 [facility] Comment on above: Performed By: #### B TS, L100.0100, L3890.6005, L900.0098, L509.4005, L3890.6300, L500.4050, L501.9985, L509.8000, L3890.6100 ####[facility] [address] [place], [address] Potassium [Moles/Vol] 3.2 mmol/L Low 3.5-5.1 [facility] Comment on above: Performed By: #### B TS, L100.0100, L3890.6005, L900.0098, L509.4005, L3890.6300, L500.4050, L501.9985, L509.8000, L3890.6100 ####[facility] [address] [place], [address] Sodium [Moles/Vol] 137 mmol/L Normal 136-145 [facility] Comment on above: Performed By: #### B TS, L100.0100, L3890.6005, L900.0098, L509.4005, L3890.6300, L500.4050, L501.9985, L509.8000, L3890.6100 ####[facility] [address] [place], [address] T PROT 7.4 g/dL Normal 6.4-8.2 [facility] Comment on above: Performed By: #### B TS, L100.0100, L3890.6005, L900.0098, L509.4005, L3890.6300, L500.4050, L501.9985, L509.8000, L3890.6100 ####[facility] [address] [place], [place], [address] Urea nitrogen [Mass/Vol] 13 mg/dL Normal 7-18 [facility] Comment on above: Performed By: #### B TS, L100.0100, L3890.6005, L900.0098, L509.4005, L3890.6300, L500.4050, L501.9985, L509.8000, L3890.6100 ####[facility] [address] [facility] [place], [address] HIV - WCHon 09-25-2024 HIV Non-Reactive Normal Nonreactive [facility] Comment on above: Order Comment: Reaso n for Exam: Performed By: #### B TS, L100.0100, L3890.6005, L900.0098, L509.4005, L3890.6300, L500.4050, L501.9985, L509.8000, L3890.6100 ####[facility] [address] [place], [place], [phone] Hemoglobin A1con 09-25-2024 HbA1c (Bld) [Mass fraction] 5.4 % Normal 3.8-5.6 [facility] Comment on above: Result Comment: Norm al < 5.7 % Prediabetic 5.7 - 6.4 % Diabetic >or= 6.5 % Please note range changes. Performed By: #### B TS, L100.0100, L3890.6005, L900.0098, L509.4005, L3890.6300, L500.4050, L501.9985, L509.8000, L3890.6100 ####[facility] [address] [facility] [address] [place], [place], [phone] Hepatitis B Surface Antigeno n 09-25-2024 HEP B Surf Ag Non-Reactive Normal Nonreactive [facility] Comment on above: Order Comment: Reaso n for Exam: Performed By: #### B TS, L100.0100, L3890.6005, L900.0098, L509.4005, L3890.6300, L500.4050, L501.9985, L509.8000, L3890.6100 ####[facility] [address] [place], [place], [address] Hepatitis C Antibodyon 09-25 Hepatitis C AB Non-Reactive Normal Nonreactive [facility] Comment on above: Order Comment: Reaso n for Exam: Result Comment: Non Reactive: < 0.8 Equivocal: >/= 0.8 to < 1.0 Reactive: >/= 1.0The [facility] requires that a reactive/equivocal HCV antibodyresult be sent out for confirmation. HCV Quant by PCRtesting. Performed By: #### B TS, L100.0100, L3890.6005, L900.0098, L509.4005, L3890.6300, L500.4050, L501.9985, L509.8000, L3890.6100 ####[facility] [address] [place], [address] L509.8000on 09-25-2024 Syphilis Abs Non-Reactive Normal [facility] Comment on above: Order Comment: Reaso n for Exam: Performed By: #### B TS, L100.0100, L3890.6005, L900.0098, L509.4005, L3890.6300, L500.4050, L501.9985, L509.8000, L3890.6100 ####[facility] [address] [place], [address] NATERAon 09-25-2024 NATURA SEE SCANNED REPORT Normal [facility] Comment on above: Performed By: #### B TS, L100.0100, L3890.6005, L900.0098, L509.4005, L3890.6300, L500.4050, L501.9985, L509.8000, L3890.6100 ####[facility] [address] [place], [place], [phone] Zinc Skimmer Office Visit Reporton 09-25-2024 Zinc Skimmer Office Visit Report Normal [facility] Rubella IgGon 09-25-2024 Rubella IgG Reactive Normal Nonreactive [facility] Comment on above: Order Comment: Reaso n for Exam: Result Comment: Anti body Results Interpretation of Immune Status Non Reactive Presumed Non-Immune Equivocal Equivocal Reactive Presumed Immune Performed By: #### B TS, L100.0100, L3890.6005, L900.0098, L509.4005, L3890.6300, L500.4050, L501.9985, L509.8000, L3890.6100 ####[facility] [address] [place], [place], [phone] Type AND Screenon 09-25-2024 Ab SCREEN GEL Negative Normal [facility] Comment on above: Order Comment: PN Performed By: #### B TS, L100.0100, L3890.6005, L900.0098, L509.4005, L3890.6300, L500.4050, L501.9985, L509.8000, L3890.6100 ####[facility] [address] [place], [place], [phone] Absolute lymphocyte countOrd ered By: Jagjit Ortega on 03-03-2024 Lymphocytes Auto (Unsp spec) [#/Vol] 2.70 10*3/uL 0.83-4.51 [facility] Automated lymphocyte count a s percentage of total leukocytesOrdered By: Jagjit Ortega on 03-03-2024 Lymphocytes/100 WBC Auto (Unsp spec) 30.4 % 19-41 [facility] Basophil percentageOrdered B y: Jagjit Ortega on 03-03-2024 Basophils/100 WBC (Bld) 0.6 % 0-1 [facility] Chloride [Moles/Vol] 111 mmol/L 98-107 [facility] Eosinophils/100 WBC (Bld) 0.0 % 0-5 [facility] Glucose [Mass/Vol] 100 mg/dL 74-106 [facility] Comment on above: Fasting Glucose resu lt from 100 to 125 mg/dL suggests IMPAIRED HOMEOSTASIS per A.D.A. criteria. Hemoglobin (Bld) [Mass/Vol] 13.1 g/dL 12.0-15.0 [facility] Monocytes/100 WBC (Bld) 5.6 % 0-10 [facility] Neutrophils (Bld) [#/Vol] 5.6 10*3/uL 2.0-7.7 [facility] Neutrophils/100 WBC (Bld) 63.2 % 47-70 [facility] Potassium [Moles/Vol] 3.2 mmol/L 3.5-5.1 [facility] Sodium [Moles/Vol] 142 mmol/L 136-145 [facility] WBC (Bld) [#/Vol] 8.9 10*3/uL 4.4-11.0 [facility] Blood platelet adequacy dete ction by light microscopyOrdered By: Jagjit Ortega on 03-03-2024 Platelets LM Ql (Bld) ADEQUATE ADEQ [facility] Determination of erythrocyte mean corpuscular volume (MCV)Ordered By: Jagjit Ortega on 03-03-2024 MCV (RBC) [Entitic vol] 87.9 fL 81-99 [facility] Erythrocyte distribution wid th ratioOrdered By: Jagjit Ortega on 03-03-2024 Erythrocyte distribution width (RBC) [Ratio] 13.0 % 11.6-14.6 [facility] Erythrocyte distribution wid th standard deviationOrdered By: Jagjit Ortega on 03-03-2024 Erythrocyte distribution width (RBC) [Entitic vol] 41.3 fL 35.1-43.9 [facility] Hematocrit Auto (Bld) [Volum e fraction]Ordered By: Jagjit Ortega on 03-03-2024 Hematocrit (Bld) [Volume fraction] 39.4 % 37-47 [facility] Immature granulocytes/100 WB C Auto (Bld)Ordered By: Jagjit Ortega on 03-03-2024 Immature granulocytes/100 WBC (Bld) 0.200 % 0.0-0.9 [facility] Comment on above: IG% - Immature Granu locytes (promyelocytes, myelocytes and metamyelocytes) > 1% indicates that a LEFT SHIFT is Present. Laboratory - Chemistry and C hemistry - challengeOrdered By: Jagjit Ortega on 03-03-2024 CO2 [Moles/Vol] 27.0 mmol/L 21.0-32.0 [facility] Urea nitrogen/Creatinine [Mass ratio] 8.7 mg/mg 10-20 [facility] Laboratory - Hematology and Cell countsOrdered By: Jagjit Ortega on 03-03-2024 MCH (RBC) [Entitic mass] 29.2 pg 27.0-32.0 [facility] MCHC (RBC) [Mass/Vol] 33.2 g/dL 32-36 [facility] Nucleated RBC/100 WBC (Bld) [Ratio] 0 % 0-5 [facility] Platelet mean volume (Bld) [Entitic vol] 11.5 fL 6.2-12.0 [facility] No Panel InformationOrdered By: Jagjit Ortega on 03-03-2024 Estimated GFR (MDRD) Amer 104 mL/min >60 [facility] Comment on above: GFR Calc Estimated GFR (MDRD) Non-Af Amer 86 mL/min >60 [facility] Comment on above: Non- GFR Calc Platelet Count TNP [facility] Comment on above: Test not performedPl [...] 03-03-2024 RBC (Bld) [#/Vol] 4.48 10*6/uL 4.2-5.4 [facility] Serum or plasma calcium omega urement (mass/volume)Ordered By: Jagjit Ortega on 03-03-2024 Calcium [Mass/Vol] 9.0 mg/dL 8.5-10.1 [facility] Serum or plasma creatinine m easurement (mass/volume)Ordered By: Jagjit Ortega on 03-03-2024 Creatinine [Mass/Vol] 0.81 mg/dL 0.55-1.02 [facility] Comment on above: The validity of the calculated GFR & GFRAA in patients over 70 years has not been determined. Clinical correlation is essential. Serum or plasma urea nitroge n measurement (mass/volume)Ordered By: Jagjit Ortega on 03-03-2024 Urea nitrogen [Mass/Vol] 7 mg/dL 7-18 [facility] Thin prep Papanicolaou smear with manual screeningOrdered By: Jagjit Ortega on 03-03-2024 Thin prep Papanicolaou smear with manual screening 4 5-15 [facility] Absolute lymphocyte countOrd ered By: Nito Liudmila on 02-22-2024 Lymphocytes Auto (Unsp spec) [#/Vol] 3.30 10*3/uL 0.83-4.51 [facility] Automated lymphocyte count a s percentage of total leukocytesOrdered By: Nito Nur on 02-22-2024 Lymphocytes/100 WBC Auto (Unsp spec) 27.5 % 19-41 [facility] Basophil percentageOrdered B y: Nito Nur on 02-22-2024 Basophil percentage 0-5 SEEN /hpf 0-5 [facility] Basophils/100 WBC (Bld) 0.5 % 0-1 [facility] Bilirubin [Mass/Vol] 0.80 mg/dL 0.20-1.00 [facility] Comment on above: For patients on eltr ombopag therapy, use of Dimension [place] TBIL is not recommended. Chloride [Moles/Vol] 110 mmol/L 98-107 [facility] Eosinophils/100 WBC (Bld) 0.0 % 0-5 [facility] Glucose [Mass/Vol] 85 mg/dL 74-106 [facility] Hemoglobin (Bld) [Mass/Vol] 13.7 g/dL 12.0-15.0 [facility] Monocytes/100 WBC (Bld) 6.2 % 0-10 [facility] Neutrophils (Bld) [#/Vol] 7.9 10*3/uL 2.0-7.7 [facility] Neutrophils/100 WBC (Bld) 65.4 % 47-70 [facility] Potassium [Moles/Vol] 2.9 mmol/L 3.5-5.1 [facility] Protein [Mass/Vol] 8.0 g/dL 6.4-8.2 [facility] Sodium [Moles/Vol] 140 mmol/L 136-145 [facility] WBC (Bld) [#/Vol] 12.0 10*3/uL 4.4-11.0 [facility] Bilirubin Test strip Ql (U)O rdered By: Nito Nur on 02-22-2024 Bilirubin Ql (U) Negative Negative [facility] Determination of erythrocyte mean corpuscular volume (MCV)Ordered By: Nito Nur on 02-22-2024 MCV (RBC) [Entitic vol] 87.2 fL 81-99 [facility] Erythrocyte distribution wid th ratioOrdered By: Nito Nur on 02-22-2024 Erythrocyte distribution width (RBC) [Ratio] 13.0 % 11.6-14.6 [facility] Erythrocyte distribution wid th standard deviationOrdered By: Nito Nur on 02-22-2024 Erythrocyte distribution width (RBC) [Entitic vol] 40.6 fL 35.1-43.9 [facility] Hematocrit Auto (Bld) [Volum e fraction]Ordered By: Nito Nur on 02-22-2024 Hematocrit (Bld) [Volume fraction] 41.4 % 37-47 [facility] Immature granulocytes/100 WB C Auto (Bld)Ordered By: Nito Nur on 02-22-2024 Immature granulocytes/100 WBC (Bld) 0.400 % 0.0-0.9 [facility] Comment on above: IG% - Immature Granu locytes (promyelocytes, myelocytes and metamyelocytes) > 1% indicates that a LEFT SHIFT is Present. Ketones Test strip Ql (U)Ord ered By: Nito Nur on 02-22-2024 Ketones Ql (U) Negative Negative [facility] Laboratory - Chemistry and C hemistry - challengeOrdered By: Nito Nur on 02-22-2024 Albumin/Globulin [Mass ratio] 1.1 {ratio} 0.9-2.4 [facility] ALP [Catalytic activity/Vol] 67 U/L 45-117 [facility] ALT [Catalytic activity/Vol] 19 U/L 13-56 [facility] CO2 [Moles/Vol] 24.0 mmol/L 21.0-32.0 [facility] Globulin (S) [Mass/Vol] 3.9 g/dL 2.2-4.2 [facility] Magnesium [Mass/Vol] 2.1 mg/dL 1.6-2.6 [facility] Urea nitrogen/Creatinine [Mass ratio] 10.5 mg/mg 10-20 [facility] Laboratory - Hematology and Cell countsOrdered By: Nito Nur on 02-22-2024 MCH (RBC) [Entitic mass] 28.8 pg 27.0-32.0 [facility] MCHC (RBC) [Mass/Vol] 33.1 g/dL 32-36 [facility] Nucleated RBC/100 WBC (Bld) [Ratio] 0 % 0-5 [facility] Platelet mean volume (Bld) [Entitic vol] 10.3 fL 6.2-12.0 [facility] Platelets (Bld) [#/Vol] 280 10*3/uL 150-450 [facility] Mucus LM Ql (Urine sed)Order ed By: Nito Nur on 02-22-2024 Mucus Ql (Urine sed) RARE /hpf [facility] Nitrite Test strip Ql (U)Ord ered By: Nito Nur on 02-22-2024 Nitrite Ql (U) Negative Negative [facility] No Panel InformationOrdered By: Nito Nur on 02-22-2024 Urine RBC 0-5 SEEN /hpf 0-5 [facility] Estimated Creatinine Clearance Calc 114.66 ml/min [facility] Estimated GFR (MDRD) Amer 97 mL/min >60 [facility] Comment on above: GFR Calc Estimated GFR (MDRD) Non-Af Amer 81 mL/min >60 [facility] Comment on above: Non- GFR Calc Protein Test strip Ql (U)Ord ered By: Nito Nur on 02-22-2024 Protein Ql (U) 30 mg/dl Negative [facility] RBC Auto (Bld) [#/Vol]Ordere d By: Nito Nur on 02-22-2024 RBC (Bld) [#/Vol] 4.75 10*6/uL 4.2-5.4 [facility] Serum or plasma calcium omega urement (mass/volume)Ordered By: Nito Nur on 02-22-2024 Calcium [Mass/Vol] 9.2 mg/dL 8.5-10.1 [facility] Serum or plasma choriogonado tropin detectionOrdered By: Nito Nur on 02-22-2024 HCG ( test) Ql Negative [facility] Serum or plasma creatinine m easurement (mass/volume)Ordered By: Nito Nur on 02-22-2024 Creatinine [Mass/Vol] 0.86 mg/dL 0.55-1.02 [facility] Comment on above: The validity of the calculated GFR & GFRAA in patients over 70 years has not been determined. Clinical correlation is essential. Serum or plasma urea nitroge n measurement (mass/volume)Ordered By: Nito Nur on 02-22-2024 Urea nitrogen [Mass/Vol] 9 mg/dL 7-18 [facility] Squamous epithelial cells de tection in urine sediment by light microscopyOrdered By: Nito Nur on 02-22-2024 Epithelial cells.squamous LM Ql (Urine sed) 0-5 SEEN /hpf 5-10 [facility] Thin prep Papanicolaou smear with manual screeningOrdered By: Nito Nur on 02-22-2024 Thin prep Papanicolaou smear with manual screening 4.1 g/dL 3.2-5.0 [facility] Thin prep Papanicolaou smear with manual screening 21 U/L 15-37 [facility] Thin prep Papanicolaou smear with manual screening 6 5-15 [facility] Urine blood detectionOrdered By: Nito Nur on 02-22-2024 RBC Ql (U) 10 /ul Negative [facility] Urine clarityOrdered By: Kayla Nur on 02-22-2024 Clarity (U) Clear Clear [facility] Urine color determinationOrd ered By: Nito Nur on 02-22-2024 Color (U) Yellow Yellow [facility] Urine glucose detectionOrder ed By: Nito Nur on 02-22-2024 Glucose Ql (U) Normal mg/dl Normal [facility] Urine leukocyte esterase det ection by dipstickOrdered By: Nito Nur on 02-22-2024 Leukocyte esterase Test strip Ql (U) 100 /ul Negative [facility] Urine pHOrdered By: Nito ramon on 02-22-2024 pH (U) 5.0 [pH] 5.0 - 8.0 [facility] Urine sediment bacteria coun t by microscopy (number/high power field)Ordered By: Nito Nur on 02-22-2024 Bacteria LM.HPF (Urine sed) [#/Area] RARE /hpf None Seen [facility] Urine specific gravity measu rementOrdered By: Nito Nur on 02-22-2024 Specific gravity (U) [Rel density] 1.020 1.002-1.030 [facility] Urine urobilinogen measureme ntOrdered By: Nito Nur on 02-22-2024 Urobilinogen Ql (U) Normal mg/dl Normal [facility] Absolute lymphocyte countOrd ered By: Jose Wynn on 12-05-2023 Lymphocytes Auto (Unsp spec) [#/Vol] 2.78 10*3/uL 0.83-4.51 [facility] Automated lymphocyte count a s percentage of total leukocytesOrdered By: Jose Wynn on 12-05-2023 Lymphocytes/100 WBC Auto (Unsp spec) 34.2 % 19-41 [facility] Basophil percentageOrdered B y: Jose Wynn on 12-05-2023 Basophil percentage 0-5 SEEN /hpf 0-5 [facility] Basophils/100 WBC (Bld) 0.7 % 0-1 [facility] Chloride [Moles/Vol] 112 mmol/L 98-107 [facility] Eosinophils/100 WBC (Bld) 5.8 % 0-5 [facility] Glucose [Mass/Vol] 107 mg/dL 74-106 [facility] Comment on above: Fasting Glucose resu lt from 100 to 125 mg/dL suggests IMPAIRED HOMEOSTASIS per A.D.A. criteria. Hemoglobin (Bld) [Mass/Vol] 12.9 g/dL 12.0-15.0 [facility] Monocytes/100 WBC (Bld) 5.3 % 0-10 [facility] Neutrophils (Bld) [#/Vol] 4.4 10*3/uL 2.0-7.7 [facility] Neutrophils/100 WBC (Bld) 53.8 % 47-70 [facility] Potassium [Moles/Vol] 3.3 mmol/L 3.5-5.1 [facility] Sodium [Moles/Vol] 142 mmol/L 136-145 [facility] WBC (Bld) [#/Vol] 8.1 10*3/uL 4.4-11.0 [facility] Bilirubin Test strip Ql (U)O rdered By: Jose Wynn on 12-05-2023 Bilirubin Ql (U) Negative Negative [facility] Determination of erythrocyte mean corpuscular volume (MCV)Ordered By: Jose Wynn on 12-05-2023 MCV (RBC) [Entitic vol] 86.4 fL 81-99 [facility] Erythrocyte distribution wid th ratioOrdered By: [facility] 12-[facility]-2023 Erythrocyte distribution width (RBC) [Ratio] 13.3 % 11.6-14.6 [facility] Erythrocyte distribution wid th standard deviationOrdered By: Jose Wynn on 12-05-2023 Erythrocyte distribution width (RBC) [Entitic vol] 41.4 fL 35.1-43.9 [facility] Hematocrit Auto (Bld) [Volum e fraction]Ordered By: Jose Wynn on 12-05-2023 Hematocrit (Bld) [Volume fraction] 39.9 % 37-47 [facility] Immature granulocytes/100 WB C Auto (Bld)Ordered By: [facility] [place] on 12-05-[facility]23 Immature granulocytes/100 WBC (Bld) 0.200 % 0.0-0.9 [facility] Comment on above: IG% - Immature Granu locytes (promyelocytes, myelocytes and metamyelocytes) > 1% indicates that a LEFT SHIFT is Present. Ketones Test strip Ql (U)Ord ered By: Jose Wynn on 12-05-2023 Ketones Ql (U) 5 mg/dl Negative [facility] Laboratory - Chemistry and C hemistry - challengeOrdered By: Jose Wynn on 12-05-2023 CO2 [Moles/Vol] 25.0 mmol/L 21.0-32.0 [facility] Urea nitrogen/Creatinine [Mass ratio] 8.3 mg/mg 10-20 [facility] Laboratory - Hematology and Cell countsOrdered By: Jose Wynn on 12-05-2023 MCH (RBC) [Entitic mass] 27.9 pg 27.0-32.0 [facility] MCHC (RBC) [Mass/Vol] 32.3 g/dL 32-36 [facility] Nucleated RBC/100 WBC (Bld) [Ratio] 0 % 0-5 [facility] Platelets (Bld) [#/Vol] 281 10*3/uL 150-450 [facility] Mucus LM Ql (Urine sed)Order ed By: Jose Wynn on 12-05-2023 Mucus Ql (Urine sed) 2+ /hpf [facility] Nitrite Test strip Ql (U)Ord ered By: Jose Wynn on 12-05-2023 Nitrite Ql (U) Negative Negative [facility] No Panel InformationOrdered By: Jose Wynn on 12-05-2023 Urine RBC 0-5 SEEN /hpf 0-5 [facility] Estimated Creatinine Clearance Calc 123.09 ml/min [facility] Estimated GFR (MDRD) Amer 99 mL/min >60 [facility] Comment on above: GFR Calc Estimated GFR (MDRD) Non-Af Amer 82 mL/min >60 [facility] Comment on above: Non- GFR Calc Platelet mean volume Ryan-Ec ker (Bld) [Entitic vol]Ordered By: Jose Wynn on 12-05-2023 Platelet mean volume (Bld) [Entitic vol] 10.3 fL 6.2-12.0 [facility] Protein Test strip Ql (U)Ord ered By: Jose Wynn on 12-05-2023 Protein Ql (U) 30 mg/dl Negative [facility] RBC Auto (Bld) [#/Vol]Ordere d By: Jose Wynn on 12-05-2023 RBC (Bld) [#/Vol] 4.62 10*6/uL 4.2-5.4 [facility] [place] [place] Serum or plasma calcium omega urement (mass/volume)Ordered By: Jose Wynn on 12-05-2023 Calcium [Mass/Vol] 9.1 mg/dL 8.5-10.1 [facility] Serum or plasma choriogonado tropin detectionOrdered By: Jose Wynn on 12-05-2023 HCG ( test) Ql Negative [facility] Serum or plasma creatinine m easurement (mass/volume)Ordered By: Jose Wynn on 12-05-2023 Creatinine [Mass/Vol] 0.84 mg/dL 0.55-1.02 [facility] Comment on above: The validity of the calculated GFR & GFRAA in patients over 70 years has not been determined. Clinical correlation is essential. Serum or plasma urea nitroge n measurement (mass/volume)Ordered By: Jsoe Wynn on 12-05-2023 Urea nitrogen [Mass/Vol] 7 mg/dL 7-18 [facility] Squamous epithelial cells de tection in urine sediment by light microscopyOrdered By: Jose Wynn on 12-05-2023 Epithelial cells.squamous LM Ql (Urine sed) 5-10 SEEN /hpf 5-10 [facility] Thin prep Papanicolaou smear with manual screeningOrdered By: Jose Wynn on 12-05-2023 Thin prep Papanicolaou smear with manual screening 5 5-15 [facility] Urine blood detectionOrdered By: Jose Wynn on 12-05-2023 RBC Ql (U) 10 /ul Negative [facility] Urine clarityOrdered By: Ksenia Wynn on 12-05-2023 Clarity (U) Cloudy Clear [facility] Urine color determinationOrd ered By: Jose Wynn on 12-05-2023 Color (U) Yellow Yellow [facility] Urine glucose detectionOrder ed By: Jose Wynn on 12-05-2023 Glucose Ql (U) Normal mg/dl Normal [facility] Urine leukocyte esterase det ection by dipstickOrdered By: Jose Wynn on 12-05-2023 Leukocyte esterase Test strip Ql (U) 25 /ul Negative [facility] Urine pHOrdered By: Jose Aguilar gur on 12-05-2023 pH (U) 6.0 [pH] 5.0 - 8.0 [facility] Urine sediment bacteria coun t by microscopy (number/high power field)Ordered By: Jose Wynn on 12-05-2023 Bacteria LM.HPF (Urine sed) [#/Area] 1 /[HPF] None Seen [facility] Urine specific gravity measu rementOrdered By: Jose Wynn on 12-05-2023 Specific gravity (U) [Rel density] 1.020 1.002-1.030 [facility] Urine urobilinogen measureme ntOrdered By: Jose Wynn on 12-05-2023 Urobilinogen Ql (U) 1 mg/dl Normal [facility] Absolute lymphocyte countOrd ered By: Jose Martinezmigue on 11-17-2023 Lymphocytes Auto (Unsp spec) [#/Vol] 2.52 10*3/uL 0.83-4.51 [facility] Basophil percentageOrdered B y: Jose Martinezmigue on 11-17-2023 Basophils/100 WBC (Bld) 0.9 % 0-1 [facility] Bilirubin [Mass/Vol] 0.60 mg/dL 0.20-1.00 [facility] Comment on above: For patients on eltr ombopag therapy, use of Dim[place] TBIL is not recommended. Chloride [Moles/Vol] 110 mmol/L 98-107 [facility] Eosinophils/100 WBC (Bld) 0.1 % 0-5 [facility] Glucose [Mass/Vol] 103 mg/dL 74-106 [facility] Comment on above: Fasting Glucose resu lt from 100 to 125 mg/dL suggests IMPAIRED HOMEOSTASIS per A.D.A. criteria. Neutrophils (Bld) [#/Vol] 5.2 10*3/uL 2.0-7.7 [facility] Neutrophils/100 WBC (Bld) 63.4 % 47-70 [facility] Potassium [Moles/Vol] 3.2 mmol/L 3.5-5.1 [facility] Protein [Mass/Vol] 7.9 g/dL 6.4-8.2 [facility] Sodium [Moles/Vol] 141 mmol/L 136-145 [facility] WBC (Bld) [#/Vol] 8.2 10*3/uL 4.4-11.0 [facility] Beta hCG serum qualOrdered B y: Jose Martinezmigue on 11-17-2023 Beta HCG ( test) Ql Negative [facility] Blood erythrocytes count (nu mber/volume)Ordered By: Jose Wynn on 11-17-2023 RBC (Bld) [#/Vol] 4.99 10*6/uL 4.2-5.4 [facility] Blood hemoglobin measurement (mass/volume)Ordered By: Jose Wynn on 11-17-2023 Hemoglobin (Bld) [Mass/Vol] 14.0 g/dL 12.0-15.0 [facility] Blood lymphocytes/100 leukoc ytesOrdered By: Jose Wynn on 11-17-2023 Lymphocytes/100 WBC (Bld) 30.6 % 19-41 [facility] Blood monocytes/100 leukocyt esOrdered By: [place] Tianna on 11-17-2023 Monocytes/100 WBC (Bld) 4.6 % 0-10 [facility] Blood platelet mean volumeOr dered By: Jose Wynn on 11-17-2023 Platelet mean volume (Bld) [Entitic vol] 10.5 fL 6.2-12.0 [facility] Determination of erythrocyte mean corpuscular volume (MCV)Ordered By: Jose Wynn on 11-17-2023 MCV (RBC) [Entitic vol] 86.4 fL 81-99 [facility] Hematocrit Auto (Bld) [Volum e fraction]Ordered By: [place] Tianna on 11-17-2023 Hematocrit (Bld) [Volume fraction] 43.1 % 37-47 [facility] Laboratory - Chemistry and C hemistry - challengeOrdered By: [facility] [place] on 11-17-2023 ALP [Catalytic activity/Vol] 85 U/L 45-117 [facility] ALT [Catalytic activity/Vol] 39 U/L 13-56 [facility] CO2 [Moles/Vol] 25.0 mmol/L 21.0-32.0 [facility] Globulin (S) [Mass/Vol] 4.0 g/dL 2.2-4.2 [facility] Lipase [Catalytic activity/Vol] 26 U/L -75 [facility] Comment on above: Please note:LIPASE r evised reference range effective 23. New Lipase methodology. Expected to produce lower values than the previous assay method. NEW Reference Range: 13 - 75 U/L Urea nitrogen/Creatinine [Mass ratio] 8.7 mg/mg 10-20 [facility] - Hematology and Cell countsOrdered By: [facility] 11-17-2023 Erythrocyte distribution width (RBC) [Entitic vol] 42.1 fL 35.1-43.9 [facility] Erythrocyte distribution width (RBC) [Ratio] 13.5 % 11.6-14.6 [facility] Immature granulocytes/100 WBC (Bld) 0.400 % 0.0-0.9 [facility] Comment on above: IG% - Immature Granu locytes (promyelocytes, myelocytes and metamyelocytes) > 1% indicates that a LEFT SHIFT is Present. MCH (RBC) [Entitic mass] 28.1 pg 27.0-32.0 [facility] Nucleated RBC/100 WBC (Bld) [Ratio] 0 % 0-5 [facility] MCHC Auto (RBC) [Mass/Vol]Or dered By: Jose Wynn on 11-17-2023 MCHC (RBC) [Mass/Vol] 32.5 g/dL 32-36 [facility] No Panel InformationOrdered By: Jose Wynn on 11-17-2023 Estimated Creatinine Clearance Calc 116.73 ml/min [facility] Estimated GFR (MDRD) Amer 90 mL/min >60 [facility] Comment on above: GFR Calc Estimated GFR (MDRD) Non-Af Amer 74 mL/min >60 [facility] Comment on above: Non- GFR Calc Ethyl Alcohol Level < 3.0 mg/dL [facility] Comment on above: The serum:whole bloo d ethanol ratio is approximately 1.14and varies slightly with hematocrit. Medical Alcohol reference interval and critical value innon-tolerant individuals; 50 - 100 Impairment 100 Intoxication 100 - 250 Severe Poisoning 250 - 400 Deep/possible fatal coma Platelets bldOrdered By: Ksenia Wynn on 11-17-2023 Platelets (Bld) [#/Vol] 263 10*3/uL 150-450 [facility] Serum or plasma albumin omega urement (mass/volume)Ordered By: Jose Wynn on 11-17-2023 Albumin [Mass/Vol] 3.9 g/dL 3.2-5.0 [facility] Serum or plasma albumin/glob ulin mass ratioOrdered By: Jose Wynn on 11-17-2023 Albumin/Globulin [Mass ratio] 1.0 {ratio} 0.9-2.4 [facility] Serum or plasma calcium omega urement (mass/volume)Ordered By: Jose Wynn on 11-17-2023 Calcium [Mass/Vol] 9.6 mg/dL 8.5-10.1 [facility] Serum or plasma creatinine m easurement (mass/volume)Ordered By: Jose Wynn on 11-17-2023 Creatinine [Mass/Vol] 0.92 mg/dL 0.55-1.02 [facility] Comment on above: The validity of the calculated GFR & GFRAA in patients over 70 years has not been determined. Clinical correlation is essential. Serum or plasma urea nitroge n measurement (mass/volume)Ordered By: Jose Wynn on 11-17-2023 Urea nitrogen [Mass/Vol] 8 mg/dL 7-18 [facility] Thin prep Papanicolaou smear with manual screeningOrdered By: Jose Wynn on 11-17-2023 Thin prep Papanicolaou smear with manual screening 24 U/L 15-37 [facility] Thin prep Papanicolaou smear with manual screening 6 5-15 [facility] Absolute lymphocyte countOrd ered By: Garrett Brooks on 10-25-2023 Lymphocytes Auto (Unsp spec) [#/Vol] 2.95 10*3/uL 0.83-4.51 [facility] Basophil percentageOrdered B y: Garrett Brooks on 10-25-2023 Basophil percentage 0-5 SEEN /hpf 0-5 [facility] Basophils/100 WBC (Bld) 0.6 % 0-1 [facility] Bilirubin [Mass/Vol] 0.70 mg/dL 0.20-1.00 [facility] Comment on above: For patients on eltr ombopag therapy, use of [place] TBIL is not recommended. Chloride [Moles/Vol] 108 mmol/L 98-107 [facility] Eosinophils/100 WBC (Bld) 4.8 % 0-5 [facility] Glucose [Mass/Vol] 119 mg/dL 74-106 [facility] Comment on above: Fasting Glucose resu lt from 100 to 125 mg/dL suggests IMPAIRED HOMEOSTASIS per A.D.A. criteria. Neutrophils (Bld) [#/Vol] 4.6 10*3/uL 2.0-7.7 [facility] Neutrophils/100 WBC (Bld) 53.6 % 47-70 [facility] Potassium [Moles/Vol] 3.6 mmol/L 3.5-5.1 [facility] Protein [Mass/Vol] 7.7 g/dL 6.4-8.2 [facility] Sodium [Moles/Vol] 141 mmol/L 136-145 [facility] WBC (Bld) [#/Vol] 8.6 10*3/uL 4.4-11.0 [facility] Beta hCG serum qualOrdered B y: Garrett Brooks on 10-25-2023 Beta HCG ( test) Ql Negative [facility] Bilirubin Test strip Ql (U)O rdered By: Garrett Brooks on 10-25-2023 Bilirubin Ql (U) Negative Negative [facility] Blood erythrocytes count (nu mber/volume)Ordered By: Garrett Brooks on 10-25-2023 RBC (Bld) [#/Vol] 4.69 10*6/uL 4.2-5.4 [facility] Blood hemoglobin measurement (mass/volume)Ordered By: Garrett Brooks on 10-25-2023 Hemoglobin (Bld) [Mass/Vol] 13.1 g/dL 12.0-15.0 [facility] Blood lymphocytes/100 leukoc ytesOrdered By: Garrett Brooks on 10-25-2023 Lymphocytes/100 WBC (Bld) 34.3 % 19-41 [facility] Blood monocytes/100 leukocyt esOrdered By: Garrett Brooks on 10-25-2023 Monocytes/100 WBC (Bld) 6.5 % 0-10 [facility] Blood platelet mean volumeOr dered By: Garrett Brooks on 10-25-2023 Platelet mean volume (Bld) [Entitic vol] 10.2 fL 6.2-12.0 [facility] Determination of erythrocyte mean corpuscular volume (MCV)Ordered By: Garrett Brooks on 10-25-2023 MCV (RBC) [Entitic vol] 87.0 fL 81-99 [facility] Hematocrit Auto (Bld) [Volum e fraction]Ordered By: Garrett Brooks on 10-25-2023 Hematocrit (Bld) [Volume fraction] 40.8 % 37-47 [facility] Ketones Test strip Ql (U)Ord ered By: Garrett Brooks on 10-25-2023 Ketones Ql (U) Negative Negative [facility] Laboratory - Chemistry and C hemistry - challengeOrdered By: Garrett Brooks on 10-25-2023 ALP [Catalytic activity/Vol] 81 U/L 45-117 [facility] ALT [Catalytic activity/Vol] 22 U/L 13-56 [facility] CO2 [Moles/Vol] 26.0 mmol/L 21.0-32.0 [facility] Globulin (S) [Mass/Vol] 4.0 g/dL 2.2-4.2 [facility] Lipase [Catalytic activity/Vol] 22 U/L 13-75 [facility] Comment on above: Please note:LIPASE r evised reference range effective 23. New Lipase methodology. Expected to produce lower values than the previous assay method. NEW Reference Range: 13 - 75 U/L Urea nitrogen/Creatinine [Mass ratio] 7.2 mg/mg 10-20 [facility] - Hematology and Cell countsOrdered By: Garrett Brooks on 10-25-2023 Erythrocyte distribution width (RBC) [Entitic vol] 41.5 fL 35.1-43.9 [facility] Erythrocyte distribution width (RBC) [Ratio] 13.3 % 11.6-14.6 [facility] Immature granulocytes/100 WBC (Bld) 0.200 % 0.0-0.9 [facility] Comment on above: IG% - Immature Granu locytes (promyelocytes, myelocytes and metamyelocytes) > 1% indicates that a LEFT SHIFT is Present. MCH (RBC) [Entitic mass] 27.9 pg 27.0-32.0 [facility] Nucleated RBC/100 WBC (Bld) [Ratio] 0 % 0-5 [facility] MCHC Auto (RBC) [Mass/Vol]Or dered By: Garrett Brooks on 10-25-2023 MCHC (RBC) [Mass/Vol] 32.1 g/dL 32-36 [facility] Mucus LM Ql (Urine sed)Order ed By: Garrett Brooks on 10-25-2023 Mucus Ql (Urine sed) 0 SEEN /hpf [facility] Nitrite Test strip Ql (U)Ord ered By: Garrett Brooks on 10-25-2023 Nitrite Ql (U) Negative Negative [facility] No Panel InformationOrdered By: Garrett Brooks on 10-25-2023 Estimated Creatinine Clearance Calc 81.49 ml/min [facility] Estimated GFR (MDRD) Amer 100 mL/min >60 [facility] Comment on above: GFR Calc Estimated GFR (MDRD) Non-Af Amer 82 mL/min >60 [facility] Comment on above: Non- GFR Calc Platelets bldOrdered By: Anirudh Brooks on 10-25-2023 Platelets (Bld) [#/Vol] 257 10*3/uL 150-450 [facility] Protein Test strip Ql (U)Ord ered By: Garrett Brooks on 10-25-2023 Protein Ql (U) 15 mg/dl Negative [facility] Serum or plasma albumin omega urement (mass/volume)Ordered By: Garrett Brooks on 10-25-2023 Albumin [Mass/Vol] 3.7 g/dL 3.2-5.0 [facility] Serum or plasma albumin/glob ulin mass ratioOrdered By: Garrett Brooks on 10-25-2023 Albumin/Globulin [Mass ratio] 0.9 {ratio} 0.9-2.4 [facility] Serum or plasma calcium omega urement (mass/volume)Ordered By: Garrett Brooks on 10-25-2023 Calcium [Mass/Vol] 9.4 mg/dL 8.5-10.1 [facility] Serum or plasma creatinine m easurement (mass/volume)Ordered By: Garrett Brooks on 10-25-2023 Creatinine [Mass/Vol] 0.84 mg/dL 0.55-1.02 [facility] Comment on above: The validity of the calculated GFR & GFRAA in patients over 70 years has not been determined. Clinical correlation is essential. Serum or plasma urea nitroge n measurement (mass/volume)Ordered By: Garrett Brooks on 10-25-2023 Urea nitrogen [Mass/Vol] 6 mg/dL 7-18 [facility] Squamous epithelial cells de tection in urine sediment by light microscopyOrdered By: Garrett Brooks on 10-25-2023 Epithelial cells.squamous LM Ql (Urine sed) 0-5 SEEN /hpf 5-10 [facility] Thin prep Papanicolaou smear with manual screeningOrdered By: Garrett Brooks on 10-25-2023 Thin prep Papanicolaou smear with manual screening 14 U/L 15-37 [facility] Thin prep Papanicolaou smear with manual screening 7 5-15 [facility] Urine blood detectionOrdered By: Garrett Brooks on 10-25-2023 RBC Ql (U) Negative Negative [facility] RBC Ql (U) 0 SEEN /hpf 0-5 [facility] Urine clarityOrdered By: Anirudh Brooks on 10-25-2023 Clarity (U) Clear Clear [facility] Urine color determinationOrd ered By: Garrett Brooks on 10-25-2023 Color (U) Yellow Yellow [facility] Urine glucose detectionOrder ed By: Garrett Brooks on 10-25-2023 Glucose Ql (U) Normal mg/dl Normal [facility] Urine leukocyte esterase det ection by dipstickOrdered By: Garrett Brooks on 10-25-2023 Leukocyte esterase Test strip Ql (U) Negative Negative [facility] Urine pHOrdered By: Garrett montano on 10-25-2023 pH (U) 7.0 [pH] 5.0 - 8.0 [facility] Urine sediment bacteria coun t by microscopy (number/high power field)Ordered By: Garrett Brooks on 10-25-2023 Bacteria LM.HPF (Urine sed) [#/Area] 0 /[HPF] None Seen [facility] Urine specific gravity measu rementOrdered By: Garrett Brooks on 10-25-2023 Specific gravity (U) [Rel density] 1.015 1.002-1.030 [facility] Urobilinogen Auto test strip Ql (U)Ordered By: Garrett Brooks on 10-25-2023 Urobilinogen Ql (U) Normal mg/dl Normal [facility] Absolute lymphocyte countOrd ered By: Agustín Estrada on 09-05-2023 Lymphocytes Auto (Unsp spec) [#/Vol] 3.03 10*3/uL 0.83-4.51 [facility] Basophil percentageOrdered B y: Agustín Estrada on 09-05-2023 Basophil percentage 0-5 SEEN /hpf 0-5 [facility] Basophils/100 WBC (Bld) 0.7 % 0-1 [facility] Bilirubin [Mass/Vol] 0.60 mg/dL 0.20-1.00 [facility] Comment on above: For patients on eltr ombopag therapy, use of Dimension [place] TBIL is not recommended. Chloride [Moles/Vol] 109 mmol/L 98-107 [facility] Eosinophils/100 WBC (Bld) 0.0 % 0-5 [facility] Glucose [Mass/Vol] 102 mg/dL 74-106 [facility] Comment on above: Fasting Glucose resu lt from 100 to 125 mg/dL suggests IMPAIRED HOMEOSTASIS per A.D.A. criteria. Neutrophils (Bld) [#/Vol] 5.1 10*3/uL 2.0-7.7 [facility] Neutrophils/100 WBC (Bld) 58.4 % 47-70 [facility] Potassium [Moles/Vol] 3.8 mmol/L 3.5-5.1 [facility] Protein [Mass/Vol] 7.7 g/dL 6.4-8.2 [facility] Sodium [Moles/Vol] 138 mmol/L 136-145 [facility] WBC (Bld) [#/Vol] 8.7 10*3/uL 4.4-11.0 [facility] Beta hCG serum qualOrdered B y: Agustín Estrada on 09-05-2023 Beta HCG ( test) Ql Negative [facility] Bilirubin Test strip Ql (U)O rdered By: Agustín Estrada on 09-05-2023 Bilirubin Ql (U) Negative Negative [facility] Blood erythrocytes count (nu mber/volume)Ordered By: Agustín Estrada on 09-05-2023 RBC (Bld) [#/Vol] 4.61 10*6/uL 4.2-5.4 [facility] Blood hemoglobin measurement (mass/volume)Ordered By: Agustín Estrada on 09-05-2023 Hemoglobin (Bld) [Mass/Vol] 12.7 g/dL 12.0-15.0 [facility] Blood lymphocytes/100 leukoc ytesOrdered By: Agustín Estrada on 09-05-2023 Lymphocytes/100 WBC (Bld) 34.9 % 19-41 [facility] Blood monocytes/100 leukocyt esOrdered By: Agustín Estrada on 09-05-2023 Monocytes/100 WBC (Bld) 5.7 % 0-10 [facility] Blood platelet mean volumeOr dered By: Agustín Estrada on 09-05-2023 Platelet mean volume (Bld) [Entitic vol] 9.6 fL 6.2-12.0 [facility] Determination of erythrocyte mean corpuscular volume (MCV)Ordered By: Agustín Estrada on 09-05-2023 MCV (RBC) [Entitic vol] 87.6 fL 81-99 [facility] Hematocrit Auto (Bld) [Volum e fraction]Ordered By: Agustín Estrada on 09-05-2023 Hematocrit (Bld) [Volume fraction] 40.4 % 37-47 [facility] Ketones Test strip Ql (U)Ord ered By: Agustín Estrada on 09-05-2023 Ketones Ql (U) Negative Negative [facility] - Chemistry and C hemistry - challengeOrdered By: Agustín Estrada on 09-05-2023 ALP [Catalytic activity/Vol] 77 U/L 45-117 [facility] ALT [Catalytic activity/Vol] 21 U/L 13-56 [facility] CO2 [Moles/Vol] 24.0 mmol/L 21.0-32.0 [facility] Globulin (S) [Mass/Vol] 4.2 g/dL 2.2-4.2 [facility] Lipase [Catalytic activity/Vol] 22 U/L 13-75 [facility] Comment on above: Please note:LIPASE r evised reference range effective 23. New Lipase methodology. Expected to produce lower values than the previous assay method. NEW Reference Range: 13 - 75 U/L Urea nitrogen/Creatinine [Mass ratio] 10.4 mg/mg 10-20 [facility] - Hematology and Cell countsOrdered By: Agustín Estrada on 09-05-2023 Erythrocyte distribution width (RBC) [Entitic vol] 42.2 fL 35.1-43.9 [facility] Erythrocyte distribution width (RBC) [Ratio] 13.2 % 11.6-14.6 [facility] Immature granulocytes/100 WBC (Bld) 0.300 % 0.0-0.9 [facility] Comment on above: IG% - Immature Granu locytes (promyelocytes, myelocytes and metamyelocytes) > 1% indicates that a LEFT SHIFT is Present. MCH (RBC) [Entitic mass] 27.5 pg 27.0-32.0 [facility] Nucleated RBC/100 WBC (Bld) [Ratio] 0 % 0-5 [facility] MCHC Auto (RBC) [Mass/Vol]Or dered By: Agustín Estrada on 09-05-2023 MCHC (RBC) [Mass/Vol] 31.4 g/dL 32-36 [facility] Mucus LM Ql (Urine sed)Order ed By: Agustín Estrada on 09-05-2023 Mucus Ql (Urine sed) 0 SEEN /hpf [facility] Nitrite Test strip Ql (U)Ord ered By: Agustín Estrada on 09-05-2023 Nitrite Ql (U) Negative Negative [facility] No Panel InformationOrdered By: Agustín Estrada on 09-05-2023 Urine Transitional Epithelial Cells 0-5 SEEN /hpf 0-5 [facility] Estimated Creatinine Clearance Calc 79.59 ml/min [facility] Estimated GFR (MDRD) Amer 96 mL/min >60 [facility] Comment on above: GFR Calc Estimated GFR (MDRD) Non-Af Amer 80 mL/min >60 [facility] Comment on above: Non- GFR Calc Platelets bldOrdered By: Austyn Estrada on 09-05-2023 Platelets (Bld) [#/Vol] 296 10*3/uL 150-450 [facility] Protein Test strip Ql (U)Ord ered By: Agustín Estraad on 09-05-2023 Protein Ql (U) 15 mg/dl Negative [facility] Serum or plasma albumin omega urement (mass/volume)Ordered By: Agustín Estrada on 09-05-2023 Albumin [Mass/Vol] 3.5 g/dL 3.2-5.0 [facility] Serum or plasma albumin/glob ulin mass ratioOrdered By: Agustín Estrada on 09-05-2023 Albumin/Globulin [Mass ratio] 0.8 {ratio} 0.9-2.4 [facility] Serum or plasma calcium omega urement (mass/volume)Ordered By: Agustín Estrada on 09-05-2023 Calcium [Mass/Vol] 9.0 mg/dL 8.5-10.1 [facility] Serum or plasma creatinine m easurement (mass/volume)Ordered By: Agustín Estrada on 09-05-2023 Creatinine [Mass/Vol] 0.86 mg/dL 0.55-1.02 [facility] Comment on above: The validity of the calculated GFR & GFRAA in patients over 70 years has not been determined. Clinical correlation is essential. Serum or plasma urea nitroge n measurement (mass/volume)Ordered By: Agustín Estrada on 09-05-2023 Urea nitrogen [Mass/Vol] 9 mg/dL 7-18 [facility] Squamous epithelial cells de tection in urine sediment by light microscopyOrdered By: Agustín Estrada on 09-05-2023 Epithelial cells.squamous LM Ql (Urine sed) 0-5 SEEN /hpf 5-10 [facility] Thin prep Papanicolaou smear with manual screeningOrdered By: Agustín Estrada on 09-05-2023 Thin prep Papanicolaou smear with manual screening 15 U/L 15-37 [facility] Thin prep Papanicolaou smear with manual screening 5 5-15 [facility] Urine blood detectionOrdered By: Agustín Estrada on 09-05-2023 RBC Ql (U) Negative Negative [facility] RBC Ql (U) 0 SEEN /hpf 0-5 [facility] Urine clarityOrdered By: Austyn Estrada on 09-05-2023 Clarity (U) Clear Clear [facility] Urine color determinationOrd ered By: Agustín Estrada on 09-05-2023 Color (U) Yellow Yellow [facility] Urine glucose detectionOrder ed By: Agustín Estrada on 09-05-2023 Glucose Ql (U) Normal mg/dl Normal [facility] Urine leukocyte esterase det ection by dipstickOrdered By: Agustín Estrada on 09-05-2023 Leukocyte esterase Test strip Ql (U) 25 /ul Negative [facility] Urine pHOrdered By: Agustín Drew ght on 09-05-2023 pH (U) 6.0 [pH] 5.0 - 8.0 [facility] Urine sediment bacteria coun t by microscopy (number/high power field)Ordered By: Agustín Estrada on 09-05-2023 Bacteria LM.HPF (Urine sed) [#/Area] 0 /[HPF] None Seen [facility] Urine specific gravity measu rementOrdered By: Agustín Estrada on 09-05-2023 Specific gravity (U) [Rel density] 1.010 1.002-1.030 [facility] Urobilinogen Auto test strip Ql (U)Ordered By: Agustín Estrada on 09-05-2023 Urobilinogen Ql (U) Normal mg/dl Normal [facility] ALLIED HEALTHon 06-07-2023 ALLIED HEALTH HNO ID: [id number] Author: Belkis Hogan RT(R) Service: ? Author Type: Load Test Mechanic Type: Allied Health Filed: 06/06/2023 10:13 PM [...] Génesis(R) June 06, 2023 10:13 PM Normal [facility] ECG COMPLETEon 06-07-2023 ECG COMPLETE Ventricular Rate : 6 5 BPM Atrial Rate : 65 BPM P-R Interval : 126 ms QRS Duration : 100 ms Q-T Interval : 428 ms QTC Calculation(Bazett) : 445 ms Calculated P [place] : 52 degrees Calculated R [place] : 36 degrees Calculated T [place] : 30 degrees SINUS RHYTHM WITH MARKED SINUS ARRHYTHMIA OTHERWISE NORMAL ECG NO PREVIOUS ECGS AVAILABLE Confirmed by MD BERMEO VINAYAK ([id number]) on 06/07/2023 9:40:19 AM NAME : DAYNA TINSLEY PID : [id number] : 1990 Gender : Female Race : ORD : [id number] Procedure Date : Jun 06 2023 22:12:30 Edit Date : Jun 07 2023 09:40:23 Diagnosis: SINUS RHYTHM WITH MARKED SINUS ARRHYTHMIA OTHERWISE NORMAL ECG NO PREVIOUS ECGS AVAILABLE Confirmed by MD BERMEO VINAYAK ([id number]) on 06/07/2023 9:40:19 AM Test Reason : Chest Pain Location : 150 : [facility] Overread By : MD BERMEO VINAYAK Edited By : MD BERMEO VINAYAK Referred By : , Acquired by : LAUREN CALIX [facility] ED NOTEon 06-07-2023 ED NOTE HNO ID: [id number] Author: Vania Hansen, RN Service: Emergency Medicine Author Type: Registered Nurse Type: ED Notes Filed: 06/06/2023 11:05 PM Note Text: Patient is AANDO, wdp, resps unlabored, relaxed facial expression and posture. Does not appear to be in any distress. Dc instr to fu w pmd, return prn, verb und. Ambulates from ER [facility] ED NOTE HNO ID: [id number] Author: Yeny Kay, DOUG Service: Emergency Medicine Author Type: Registered Nurse Type: ED Notes Filed: 06/06/2023 10:30 PM Note Text: Pt refuses zofran. Physician updated. 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 States that when she took out the trash 3 days ago something splashed her arm and she is concerned that it is exposing her to toxins. She states that she has had temperature problems as well as tingling sensation in her right arm since. Was actually seen and evaluated at [facility] for this yesterday. They recommended outpatient [...] Morbid obesity with BMI of 45.0-49.9, adult ([facility]) Personal history of unspecified urinary disorder Thoracic or lumbosacral neuritis or radiculitis, unspecified PAST SURGICAL HISTORY Procedure Laterality Date CHOLECYSTECTOMY 2004 COLECTOMY PARTIAL W ANASTOM 2004 for crohns COLONOSCOPY 12/2011, 06/2014 PAST SURGICAL HISTORY OF ear tubes numerous times PAST SURGICAL HISTORY OF 2012 caudal epidural steroid injection ([employer]) SUCTION D AND C 2010 FAMILY HISTORY [...] Intolerance Review of Systems Physical Exam Vitals [06/06/23 2104] BP Pulse Temp Temp src Resp SpO2 [...] cerebellar testing with finger to nose or [id number] exam. Patient with even steady gait in the emergency room. Diagnostic Testing ED Labs Ordered and Reviewed - No data to display Procedures ED Course / Clinical Impression ED Course as of 06/06/232320 Jennifer Zaidi's Documentation Wed Jun 06, [id number] Triage EKG obtained and reviewed by myself. Sinus rhythm noted with sinus arrhythmia. Ventricular to 65 bpm. No (more content not included)... Normal [facility] XR CHEST 2V FRONTAL/LATon XR CHEST [...] significant acute radiographic abnormality of the chest. 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 Pt reports she been having chest pain and thinks her R arm is swollen. Pt states I've been sick non-stop back to back for three weeks pt also reports back pain and fevers for three weeks Normal [facility] Absolute lymphocyte countOrd ered By: Major Mejia on 06-05-2023 Lymphocytes Auto (Unsp spec) [#/Vol] 3.02 10*3/uL 0.83-4.51 [facility] Basophil percentageOrdered B y: Major Mejia on 06-05-2023 Basophils/100 WBC (Bld) 0.5 % 0-1 [facility] Chloride [Moles/Vol] 110 mmol/L 98-107 [facility] Eosinophils/100 WBC (Bld) 0.1 % 0-5 [facility] Glucose [Mass/Vol] 96 mg/dL 74-106 [facility] Lactate [Moles/Vol] 0.4 mmol/L 0.4-2.0 [facility] Neutrophils (Bld) [#/Vol] 6.5 10*3/uL 2.0-7.7 [facility] Neutrophils/100 WBC (Bld) 64.4 % 47-70 [facility] Potassium [Moles/Vol] 5.0 mmol/L 3.5-5.1 [facility] Comment on above: Moderate Hemolysis, Result may be falsely increased. Sodium [Moles/Vol] 136 mmol/L 136-145 [facility] WBC (Bld) [#/Vol] 10.1 10*3/uL 4.4-11.0 [facility] Blood erythrocytes count (nu mber/volume)Ordered By: Major Mejia on 06-05-2023 RBC (Bld) [#/Vol] 4.48 10*6/uL 4.2-5.4 [facility] Blood hemoglobin measurement (mass/volume)Ordered By: Major Mejia on 06-05-2023 Hemoglobin (Bld) [Mass/Vol] 12.3 g/dL 12.0-15.0 [facility] Blood lymphocytes/100 leukoc ytesOrdered By: Major Mejia on 06-05-2023 Lymphocytes/100 WBC (Bld) 29.9 % 19-41 [facility] Blood monocytes/100 leukocyt esOrdered By: Major Mejia on 06-05-2023 Monocytes/100 WBC (Bld) 4.8 % 0-10 [facility] Blood platelet mean volumeOr dered By: Major Mejia on 06-05-2023 Platelet mean volume (Bld) [Entitic vol] 10.2 fL 6.2-12.0 [facility] Determination of erythrocyte mean corpuscular volume (MCV)Ordered By: Major Mejia on 06-05-2023 MCV (RBC) [Entitic vol] 85.0 fL 81-99 [facility] Hematocrit Auto (Bld) [Volum e fraction]Ordered By: Major Mejia on 06-05-2023 Hematocrit (Bld) [Volume fraction] 38.1 % 37-47 [facility] - Chemistry and C hemistry - challengeOrdered By: Major Mejia on 06-05-2023 CO2 [Moles/Vol] 22.0 mmol/L 21.0-32.0 [facility] Magnesium [Mass/Vol] 2.0 mg/dL 1.6-2.6 [facility] Comment on above: Moderate Hemolysis, Result may be falsely increased. Urea nitrogen/Creatinine [Mass ratio] 4.2 mg/mg 10-20 [facility] - Hematology and Cell countsOrdered By: Major Mejia on 06-05-2023 Erythrocyte distribution width (RBC) [Entitic vol] 43.1 fL 35.1-43.9 [facility] Erythrocyte distribution width (RBC) [Ratio] 13.9 % 11.6-14.6 [facility] Immature granulocytes/100 WBC (Bld) 0.300 % 0.0-0.9 [facility] Comment on above: IG% - Immature Granu locytes (promyelocytes, myelocytes and metamyelocytes) > 1% indicates that a LEFT SHIFT is Present. MCH (RBC) [Entitic mass] 27.5 pg 27.0-32.0 [facility] Nucleated RBC/100 WBC (Bld) [Ratio] 0 % 0-5 [facility] MCHC Auto (RBC) [Mass/Vol]Or dered By: Major Mejia on 06-05-2023 MCHC (RBC) [Mass/Vol] 32.3 g/dL 32-36 [facility] No Panel InformationOrdered By: Major Mejia on 06-05-2023 Estimated Creatinine Clearance Calc 96.41 ml/min [facility] Estimated GFR (MDRD) Amer 120 mL/min >60 [facility] Comment on above: GFR Calc Estimated GFR (MDRD) Non-Af Amer 99 mL/min >60 [facility] Comment on above: Non- GFR Calc Troponin I High Sensitivity 3 pg/mL 3.0-54.0 [facility] Comment on above: Please Note: [place] t Units and Gender Specific Reference Ranges. For more information see Policy Stat Procedure [place] High Sensitivity Troponin (TNIH) and attachments. Platelets bldOrdered By: Johnson Mejia on 06-05-2023 Platelets (Bld) [#/Vol] 243 10*3/uL 150-450 [facility] Serum or plasma calcium omega urement (mass/volume)Ordered By: Major Mejia on 06-05-2023 Calcium [Mass/Vol] 8.3 mg/dL 8.5-10.1 [facility] Serum or plasma creatinine m easurement (mass/volume)Ordered By: Major Mejia on 06-05-2023 Creatinine [Mass/Vol] 0.71 mg/dL 0.55-1.02 [facility] Comment on above: The validity of the calculated GFR & GFRAA in patients over 70 years has not been determined. Clinical correlation is essential. Serum or plasma urea nitroge n measurement (mass/volume)Ordered By: Major Mejia on 06-05-2023 Urea nitrogen [Mass/Vol] 3 mg/dL 7-18 [facility] Thin prep Papanicolaou smear with manual screeningOrdered By: Major Mejia on 06-05-2023 Thin prep Papanicolaou smear with manual screening 4 5-15 [facility] Basophil percentageOrdered B y: Harriet Chirinos on 05-17-2023 Chloride [Moles/Vol] 106 mmol/L 98-107 [facility] Glucose [Mass/Vol] 88 mg/dL 74-106 [facility] Potassium [Moles/Vol] 3.6 mmol/L 3.5-5.1 [facility] Comment on above: Slight Hemolysis, Re sult may be falsely increased. Sodium [Moles/Vol] 138 mmol/L 136-145 [facility] Influenza virus A and B and SARS-CoV-2 (COVID-19) Ag panel - Upper respiratory specimOrdered By: Harriet Chirinos on 05-17-2023 SARS-CoV-2 (COVID-19) RNA JYOTI+probe Ql (Resp) [facility] - Chemistry and C hemistry - challengeOrdered By: Harriet Chirinos on 05-17-2023 CO2 [Moles/Vol] 24.0 mmol/L 21.0-32.0 [facility] Urea nitrogen/Creatinine [Mass ratio] 12.3 mg/mg 10-20 [facility] No Panel InformationOrdered By: Harriet Chirinos on 05-17-2023 Estimated Creatinine Clearance Calc 76.91 ml/min [facility] Estimated GFR (MDRD) Amer 93 mL/min >60 [facility] Comment on above: GFR Calc Estimated GFR (MDRD) Non-Af Amer 77 mL/min >60 [facility] Comment on above: Non- GFR Calc Serum or plasma calcium omega urement (mass/volume)Ordered By: Harriet Chirinos on 05-17-2023 Calcium [Mass/Vol] 8.9 mg/dL 8.5-10.1 [facility] Serum or plasma creatinine m easurement (mass/volume)Ordered By: Harriet Chirinos on 05-17-2023 Creatinine [Mass/Vol] 0.89 mg/dL 0.55-1.02 [facility] Comment on above: The validity of the calculated GFR & GFRAA in patients over 70 years has not been determined. Clinical correlation is essential. Serum or plasma urea nitroge n measurement (mass/volume)Ordered By: Harriet Chirinos on 05-17-2023 Urea nitrogen [Mass/Vol] 11 mg/dL 7-18 [facility] Thin prep Papanicolaou smear with manual screeningOrdered By: Harriet Chaudharysusie on 05-17-2023 Thin prep Papanicolaou smear with manual screening 8 5-15 [facility] Absolute lymphocyte countOrd ered By: Dr. Brooks on 01-21-2023 Lymphocytes Auto (Unsp spec) [#/Vol] 2.86 10*3/uL 0.83-4.51 [facility] Basophil percentageOrdered B y: Dr. Brooks on 01-21-2023 Basophil percentage 0 SEEN /hpf 0-5 [facility] Basophils/100 WBC (Bld) 0.4 % 0-1 [facility] Eosinophils/100 WBC (Bld) 0.1 % 0-5 [facility] Neutrophils (Bld) [#/Vol] 7.7 10*3/uL 2.0-7.7 [facility] Neutrophils/100 WBC (Bld) 69.2 % 47-70 [facility] WBC (Bld) [#/Vol] 11.1 10*3/uL 4.4-11.0 [facility] [facility] Bilirubin [Mass/Vol] 0.90 mg/dL 0.20-1.00 [facility] Comment on above: For patients on eltr ombopag therapy, use of Dimension [place] TBIL is not recommended. Chloride [Moles/Vol] 108 mmol/L 98-107 [facility] Glucose [Mass/Vol] 114 mg/dL 74-106 [facility] Comment on above: Fasting Glucose resu lt from 100 to 125 mg/dL suggests IMPAIRED HOMEOSTASIS per A.D.A. criteria. Potassium [Moles/Vol] 3.8 mmol/L 3.5-5.1 [facility] Protein [Mass/Vol] 7.7 g/dL 6.4-8.2 [facility] Sodium [Moles/Vol] 139 mmol/L 136-145 [facility] Beta hCG serum qualOrdered B y: Dr. Brooks on 01-21-2023 Beta HCG ( test) Ql Negative [facility] Bilirubin Test strip Ql (U)O rdered By: Dr. Brooks on 01-21-2023 Bilirubin Ql (U) Negative Negative [facility] Blood erythrocytes count (nu mber/volume)Ordered By: Dr. Brooks on 01-21-2023 RBC (Bld) [#/Vol] 4.99 10*6/uL 4.2-5.4 [facility] Blood hemoglobin measurement (mass/volume)Ordered By: Dr. Brooks on 01-21-2023 Hemoglobin (Bld) [Mass/Vol] 13.0 g/dL 12.0-15.0 [facility] Blood lymphocytes/100 leukoc ytesOrdered By: Dr. Brooks on 01-21-2023 Lymphocytes/100 WBC (Bld) 25.7 % 19-41 [facility] Blood monocytes/100 leukocyt esOrdered By: Dr. Brooks on 01-21-2023 Monocytes/100 WBC (Bld) 4.3 % 0-10 [facility] Blood platelet mean volumeOr dered By: Dr. Brooks on 01-21-2023 Platelet mean volume (Bld) [Entitic vol] 10.8 fL 6.2-12.0 [facility] Determination of erythrocyte mean corpuscular volume (MCV)Ordered By: Dr. Brooks on 01-21-2023 MCV (RBC) [Entitic vol] 82.6 fL 81-99 [facility] Hematocrit Auto (Bld) [Volum e fraction]Ordered By: Dr. Brooks on 01-21-2023 Hematocrit (Bld) [Volume fraction] 41.2 % 37-47 [facility] Ketones Test strip Ql (U)Ord ered By: Dr. Brooks on 01-21-2023 Ketones Ql (U) Negative Negative [facility] Laboratory - Chemistry and C hemistry - challengeOrdered By: Dr. Brooks on 01-21-2023 ALP [Catalytic activity/Vol] 74 U/L 45-117 [facility] ALT [Catalytic activity/Vol] 15 U/L 13-56 [facility] CO2 [Moles/Vol] 24.0 mmol/L 21.0-32.0 [facility] Globulin (S) [Mass/Vol] 4.3 g/dL 2.2-4.2 [facility] Lipase [Catalytic activity/Vol] 57 U/L 73-393 [facility] Urea nitrogen/Creatinine [Mass ratio] 8.5 mg/mg 10-20 [facility] Laboratory - Hematology and Cell countsOrdered By: Dr. Brooks on 01-21-2023 Erythrocyte distribution width (RBC) [Entitic vol] 43.9 fL 35.1-43.9 [facility] Erythrocyte distribution width (RBC) [Ratio] 14.7 % 11.6-14.6 [facility] Immature granulocytes/100 WBC (Bld) 0.300 % 0.0-0.9 [facility] Comment on above: IG% - Immature Granu locytes (promyelocytes, myelocytes and metamyelocytes) > 1% indicates that a LEFT SHIFT is Present. MCH (RBC) [Entitic mass] 26.1 pg 27.0-32.0 [facility] Nucleated RBC/100 WBC (Bld) [Ratio] 0 % 0-5 [facility] MCHC Auto (RBC) [Mass/Vol]Or dered By: Dr. Brooks on 01-21-2023 MCHC (RBC) [Mass/Vol] 31.6 g/dL 32-36 [facility] Mucus LM Ql (Urine sed)Order ed By: Dr. Brooks on 01-21-2023 Mucus Ql (Urine sed) 0 SEEN /hpf [facility] Nitrite Test strip Ql (U)Ord ered By: Dr. Brooks on 01-21-2023 Nitrite Ql (U) Negative Negative [facility] No Panel InformationOrdered By: Dr. Brooks on 01-21-2023 Estimated Creatinine Clearance Calc 64.58 ml/min [facility] Estimated GFR (MDRD) Amer 76 mL/min >60 [facility] Comment on above: GFR Calc Estimated GFR (MDRD) Non-Af Amer 63 mL/min >60 [facility] Comment on above: Non- GFR Calc Platelets bldOrdered By: Dr. Brooks on 01-21-2023 Platelets (Bld) [#/Vol] 282 10*3/uL 150-450 [facility] Protein Test strip Ql (U)Ord ered By: Dr. Brooks on 01-21-2023 Protein Ql (U) Negative Negative [facility] Serum or plasma albumin omega urement (mass/volume)Ordered By: Dr. Brooks on 01-21-2023 Albumin [Mass/Vol] 3.4 g/dL 3.2-5.0 [facility] Serum or plasma albumin/glob ulin mass ratioOrdered By: Dr. Brooks on 01-21-2023 Albumin/Globulin [Mass ratio] 0.8 {ratio} 0.9-2.4 [facility] Serum or plasma calcium omega urement (mass/volume)Ordered By: Dr. Brooks on 01-21-2023 Calcium [Mass/Vol] 8.9 mg/dL 8.5-10.1 [facility] Serum or plasma creatinine m easurement (mass/volume)Ordered By: Dr. Brooks on 01-21-2023 Creatinine [Mass/Vol] 1.06 mg/dL 0.55-1.02 [facility] Comment on above: The validity of the calculated GFR & GFRAA in patients over 70 years has not been determined. Clinical correlation is essential. Serum or plasma urea nitroge n measurement (mass/volume)Ordered By: Dr. Brooks on 01-21-2023 Urea nitrogen [Mass/Vol] 9 mg/dL 7-18 [facility] Squamous epithelial cells de tection in urine sediment by light microscopyOrdered By: Dr. Brooks on 01-21-2023 Epithelial cells.squamous LM Ql (Urine sed) 0-5 SEEN /hpf 5-10 [facility] Thin prep Papanicolaou smear with manual screeningOrdered By: Dr. Brooks on 01-21-2023 Thin prep Papanicolaou smear with manual screening 12 U/L 15-37 [facility] Thin prep Papanicolaou smear with manual screening 7 5-15 [facility] Urine blood detectionOrdered By: Dr. Brooks on 01-21-2023 RBC Ql (U) Negative Negative [facility] RBC Ql (U) 0 SEEN /hpf 0-5 [facility] Urine clarityOrdered By: Dr. Brooks on 01-21-2023 Clarity (U) Clear Clear [facility] Urine color determinationOrd ered By: Dr. Brooks on 01-21-2023 Color (U) Straw Yellow [facility] Urine glucose detectionOrder ed By: Dr. Brooks on 01-21-2023 Glucose Ql (U) Normal mg/dl Normal [facility] Urine leukocyte esterase det ection by dipstickOrdered By: Dr. Brooks on 01-21-2023 Leukocyte esterase Test strip Ql (U) Negative Negative [facility] Urine pHOrdered By: Dr. Joey neumann on 01-21-2023 pH (U) 6.5 [pH] 5.0 - 8.0 [facility] Urine sediment bacteria coun t by microscopy (number/high power field)Ordered By: Dr. Brooks on 01-21-2023 Bacteria LM.HPF (Urine sed) [#/Area] 0 /[HPF] None Seen [facility] Urine specific gravity measu rementOrdered By: Dr. Brooks on 01-21-2023 Specific gravity (U) [Rel density] 1.010 1.002-1.030 [facility] Urobilinogen Auto test strip Ql (U)Ordered By: Dr. Brooks on 01-21-2023 Urobilinogen Ql (U) Normal mg/dl Normal [facility] Absolute lymphocyte countOrd ered By: Dr. Taylor on 12-14-2022 Lymphocytes Auto (Unsp spec) [#/Vol] 2.92 10*3/uL 0.83-4.51 [facility] Basophil percentageOrdered B y: Dr. Taylor on 12-14-2022 Basophil percentage 0 SEEN /hpf 0-5 [facility] Basophils/100 WBC (Bld) 0.6 % 0-1 [facility] Bilirubin [Mass/Vol] 0.80 mg/dL 0.20-1.00 [facility] Comment on above: For patients on eltr ombopag therapy, use of [place] TBIL is not recommended. Chloride [Moles/Vol] 108 mmol/L 98-107 [facility] Eosinophils/100 WBC (Bld) 0.1 % 0-5 [facility] Glucose [Mass/Vol] 98 mg/dL 74-106 [facility] Neutrophils (Bld) [#/Vol] 4.4 10*3/uL 2.0-7.7 [facility] Neutrophils/100 WBC (Bld) 56.1 % 47-70 [facility] Potassium [Moles/Vol] 2.9 mmol/L 3.5-5.1 [facility] Protein [Mass/Vol] 7.5 g/dL 6.4-8.2 [facility] Sodium [Moles/Vol] 142 mmol/L 136-145 [facility] WBC (Bld) [#/Vol] 7.8 10*3/uL 4.4-11.0 [facility] Beta hCG serum qualOrdered B y: Dr. Taylor on 12-14-2022 Beta HCG ( test) Ql Negative [facility] Bilirubin Test strip Ql (U)O rdered By: Dr. Taylor on 12-14-2022 Bilirubin Ql (U) Negative Negative [facility] Blood erythrocytes count (nu mber/volume)Ordered By: Dr. Taylor on 12-14-2022 RBC (Bld) [#/Vol] 4.58 10*6/uL 4.2-5.4 [facility] Blood hemoglobin measurement (mass/volume)Ordered By: Dr. Taylor on 12-14-2022 Hemoglobin (Bld) [Mass/Vol] 11.8 g/dL 12.0-15.0 [facility] Blood lymphocytes/100 leukoc ytesOrdered By: Dr. Taylor on 12-14-2022 Lymphocytes/100 WBC (Bld) 37.2 % 19-41 [facility] Blood monocytes/100 leukocyt esOrdered By: Dr. Taylor on 12-14-2022 Monocytes/100 WBC (Bld) 5.7 % 0-10 [facility] Blood platelet mean volumeOr dered By: Dr. Taylor on 12-14-2022 Platelet mean volume (Bld) [Entitic vol] 10.2 fL 6.2-12.0 [facility] Determination of erythrocyte mean corpuscular volume (MCV)Ordered By: Dr. Taylor on 12-14-2022 MCV (RBC) [Entitic vol] 81.0 fL 81-99 [facility] Hematocrit Auto (Bld) [Volum e fraction]Ordered By: Dr. Taylor on 12-14-2022 Hematocrit (Bld) [Volume fraction] 37.1 % 37-47 [facility] Ketones Test strip Ql (U)Ord ered By: Dr. Taylor on 12-14-2022 Ketones Ql (U) Negative Negative [facility] Laboratory - Chemistry and C hemistry - challengeOrdered By: Dr. Taylor on 02-09-2023 ALP [Catalytic activity/Vol] 65 U/L 45-117 [facility] ALT [Catalytic activity/Vol] 17 U/L 13-56 [facility] CO2 [Moles/Vol] 24.0 mmol/L 21.0-32.0 [facility] Globulin (S) [Mass/Vol] 3.8 g/dL 2.2-4.2 [facility] Lipase [Catalytic activity/Vol] 87 U/L 73-393 [facility] Urea nitrogen/Creatinine [Mass ratio] 9.0 mg/mg 10-20 [facility] Laboratory - Hematology and Cell countsOrdered By: Dr. Taylor on 12-14-2022 Erythrocyte distribution width (RBC) [Entitic vol] 41.3 fL 35.1-43.9 [facility] Erythrocyte distribution width (RBC) [Ratio] 14.1 % 11.6-14.6 [facility] Immature granulocytes/100 WBC (Bld) 0.300 % 0.0-0.9 [facility] Comment on above: IG% - Immature Granu locytes (promyelocytes, myelocytes and metamyelocytes) > 1% indicates that a LEFT SHIFT is Present. MCH (RBC) [Entitic mass] 25.8 pg 27.0-32.0 [facility] Nucleated RBC/100 WBC (Bld) [Ratio] 0 % 0-5 [facility] MCHC Auto (RBC) [Mass/Vol]Or dered By: Dr. Taylor on 12-14-2022 MCHC (RBC) [Mass/Vol] 31.8 g/dL 32-36 [facility] Mucus LM Ql (Urine sed)Order ed By: Dr. Taylor on 12-14-2022 Mucus Ql (Urine sed) 0 SEEN /hpf [facility] Nitrite Test strip Ql (U)Ord ered By: Dr. Taylor on 12-14-2022 Nitrite Ql (U) Negative Negative [facility] No Panel InformationOrdered By: Dr. Taylor on 12-14-2022 Estimated Creatinine Clearance Calc 88.90 ml/min [facility] Estimated GFR (MDRD) Amer 110 mL/min >60 [facility] Comment on above: GFR Calc Estimated GFR (MDRD) Non-Af Amer 91 mL/min >60 [facility] Comment on above: Non- GFR Calc Platelets bldOrdered By: Dr. Taylor on 12-14-2022 Platelets (Bld) [#/Vol] 277 10*3/uL 150-450 [facility] Protein Test strip Ql (U)Ord ered By: Dr. Taylor on 12-14-2022 Protein Ql (U) Negative Negative [facility] Serum or plasma albumin omega urement (mass/volume)Ordered By: Dr. Taylor on 12-14-2022 Albumin [Mass/Vol] 3.7 g/dL 3.2-5.0 [facility] Serum or plasma albumin/glob ulin mass ratioOrdered By: Dr. Taylor on 12-14-2022 Albumin/Globulin [Mass ratio] 1.0 {ratio} 0.9-2.4 [facility] Serum or plasma calcium omega urement (mass/volume)Ordered By: Dr. Taylor on 12-14-2022 Calcium [Mass/Vol] 9.1 mg/dL 8.5-10.1 [facility] Serum or plasma creatinine m easurement (mass/volume)Ordered By: Dr. Taylor on 12-14-2022 Creatinine [Mass/Vol] 0.77 mg/dL 0.55-1.02 [facility] Comment on above: The validity of the calculated GFR & GFRAA in patients over 70 years has not been determined. Clinical correlation is essential. Serum or plasma urea nitroge n measurement (mass/volume)Ordered By: Dr. Taylor on 12-14-2022 Urea nitrogen [Mass/Vol] 7 mg/dL 7-18 [facility] Squamous epithelial cells de tection in urine sediment by light microscopyOrdered By: Dr. Taylor on 12-14-2022 Epithelial cells.squamous LM Ql (Urine sed) 0 SEEN /hpf 5-10 [facility] Thin prep Papanicolaou smear with manual screeningOrdered By: Dr. Taylor on 12-14-2022 Thin prep Papanicolaou smear with manual screening 16 U/L 15-37 [facility] Thin prep Papanicolaou smear with manual screening 10 5-15 [facility] Urine blood detectionOrdered By: Dr. Taylor on 12-14-2022 RBC Ql (U) Negative Negative [facility] RBC Ql (U) 0 SEEN /hpf 0-5 [facility] Urine clarityOrdered By: Dr. Taylor on 12-14-2022 Clarity (U) Clear Clear [facility] Urine color determinationOrd ered By: Dr. Taylor on 12-14-2022 Color (U) Yellow Yellow [facility] Urine glucose detectionOrder ed By: Dr. Taylor on 12-14-2022 Glucose Ql (U) Normal mg/dl Normal [facility] Urine leukocyte esterase det ection by dipstickOrdered By: Dr. Taylor on 12-14-2022 Leukocyte esterase Test strip Ql (U) Negative Negative [facility] Urine pHOrdered By: Dr. Miguel miranda on 12-14-2022 pH (U) 6.5 [pH] 5.0 - 8.0 [facility] Urine sediment bacteria coun t by microscopy (number/high power field)Ordered By: Dr. Taylor on 12-14-2022 Bacteria LM.HPF (Urine sed) [#/Area] 0 /[HPF] None Seen [facility] Urine specific gravity measu rementOrdered By: Dr. Taylor on 12-14-2022 Specific gravity (U) [Rel density] 1.010 1.002-1.030 [facility] Urobilinogen Auto test strip Ql (U)Ordered By: Dr. Taylor on 12-14-2022 Urobilinogen Ql (U) Normal mg/dl Normal [facility] Basic metabolic 2000 panelon 12-03-2022 Anion gap [Moles/Vol] 11 mmol/L Normal 9-18 [facility] Comment on above: Order Comment: Speci men Type: BLOOD SPECIMEN Ordering Facility: [facility] Address: [address] [id number] Performed By: #### 2 4321-2, 2157-6 #### [facility] CLIA [id number] [address] [place] [address] [place] Calcium [Mass/Vol] 9.0 mg/dL Normal 8.5-10.2 [facility] Comment on above: Order Comment: Speci men Type: BLOOD SPECIMEN Ordering Facility: [facility] Address: [address] [phone] Performed By: #### 2 4322, 2157-04 #### [facility] [place] [facility] CLIA [id number] [address] [place] [address] [place] Chloride [Moles/Vol] 106 mmol/L High 97-105 [facility] Comment on above: Order Comment: Speci men Type: BLOOD SPECIMEN Ordering Facility: [facility] Address: [address] [place] [address] Performed By: #### 2 432-2, 2157-04 #### [facility] [place] [facility] CLIA [id number] [address] [place] [address] [place] CO2 [Moles/Vol] 21 mmol/L Low 22-30 [facility] Comment on above: Order Comment: Speci men Type: BLOOD SPECIMEN Ordering Facility: [facility] Address: [address] [place] [address] Performed By: #### 2 43211-06, 2157-04 #### [facility] [place] [facility] CLIA [id number] [address] [place], [place] [address] [place] [address] OF [facility] Creatinine [Mass/Vol] 0.67 mg/dL Normal 0.58-0.96 [facility] Comment on above: Order Comment: Speci men Type: BLOOD SPECIMEN Ordering Facility: [facility] Address: [address] [place] [address] Performed By: #### 2 43211-06, 2157-04 #### [facility] [place] [facility] CLIA [id number] [address] [place] [id number] [place] [address] ESTIMATED GLOMERULAR FILTRATION RATE 119 mL/min/1.73m??? Normal >=60 [facility] Comment on above: Order Comment: Speci men Type: BLOOD SPECIMEN Ordering Facility: [facility] Address: [address] [place] [address] Result Comment: Zoya mated Glomerular Filtration Rate [...] Performed By: #### 2 43211-06, 2157-04 #### [facility] CLIA [id number] [address] [place] [address] [place] Glucose [Mass/Vol] 107 mg/dL High 74-99 [facility] Comment on above: Order Comment: Juana davis Type: BLOOD SPECIMEN Ordering Facility: [facility] Address: [address] [place], [place] [phone] Result Comment: The [place] [employer] (ADA) provides guidance for cutoff [...] Standards of Medical Care in Diabetes 2016, [place] [employer]. Diabetes Care. 2016.39(Suppl 1). Performed By: #### 2 43211-06, 2157-04 #### [facility] CLIA [id number] [address] [place] [address] [place] Potassium [Moles/Vol] 3.7 mmol/L Normal 3.7-5.1 [facility] Comment on above: Order Comment: Juana davis Type: BLOOD SPECIMEN Ordering Facility: [facility] Address: [address] [place] [address] Performed By: #### 2 43211-06, 2157-04 #### [facility] CLIA [id number] [address] [place] [address] [place] Sodium [Moles/Vol] 138 mmol/L Normal 136-144 [facility] Comment on above: Order Comment: Juana davis Type: BLOOD SPECIMEN Ordering Facility: [facility] Address: [address] [address] Performed By: #### 2 4321-2, 2157-04 #### [facility] [place] [facility] CLIA [id number] [address] [place] [address] [place] [facility] Urea nitrogen [Mass/Vol] 7 mg/dL Normal 7-21 [facility] Comment on above: Order Comment: Speci men Type: BLOOD SPECIMEN Ordering Facility: [facility] Address: [address] [place] [address] Performed By: #### 2 4321-2, 2157-04 #### [facility] [place] [facility] CLIA [id number] [address] [place] [address] [place] CBC W Auto Differential pane l (Bld)on 12-03-2022 Basophils (Bld) [#/Vol] 10*3/uL Normal <0.11 [facility] Comment on above: Order Comment: Speci men Type: BLOOD SPECIMEN Ordering Facility: [facility] Address: [address] [place] [address] Performed By: #### 5 7021-8 #### [facility] [place] [facility] CLIA [id number] [address] [place] [address] [place] Basophils/100 WBC (Bld) 0.3 % Normal [facility] Comment on above: Order Comment: Speci men Type: BLOOD SPECIMEN Ordering Facility: [facility] Address: [address] [place] [address] Performed By: #### 5 7021-8 #### [facility] [place] [facility] CLIA [id number] [address] [place] [facility] Differential cell count method Nom (Bld) Auto Normal [facility] Comment on above: Order Comment: Speci men Type: BLOOD SPECIMEN Ordering Facility: [facility] Address: [address] [place] [address] Performed By: #### 5 7021-8 #### [facility] [place] [facility] CLIA [id number] [address] [place] [address] [place] Eosinophils (Bld) [#/Vol] 10*3/uL Normal <0.46 [facility] Comment on above: Order Comment: Speci men Type: BLOOD SPECIMEN Ordering Facility: [facility] Address: [address] [place] [address] Performed By: #### 5 7021-8 #### [facility] [place] [facility] CLIA [id number] [address] [place] [address] [place] Eosinophils/100 WBC (Bld) 0.0 % Normal [facility] Comment on above: Order Comment: Speci men Type: BLOOD SPECIMEN Ordering Facility: [facility] Address: [address] [place] [address] Performed By: #### 5 7021-8 #### [facility] [place] [facility] CLIA [id number] [address] [place] Erythrocyte distribution width (RBC) [Ratio] 13.9 % Normal 11.5-15.0 [facility] Comment on above: Order Comment: Speci men Type: BLOOD SPECIMEN Ordering Facility: [facility] Address: [address] [place] [address] Performed By: #### 5 7021-8 #### [facility] [place] [facility] CLIA [id number] [address] [id number] [place] Hematocrit (Bld) [Volume fraction] 36.7 % Normal 36.0-46.0 [facility] Comment on above: Order Comment: Speci men Type: BLOOD SPECIMEN Ordering Facility: [facility] Address: [address] [place] [address] Performed By: #### 5 7021-8 #### [facility] [place] [facility] CLIA [id number] [address] [id number] [place] Hemoglobin (Bld) [Mass/Vol] 11.7 g/dL Normal 11.5-15.5 [facility] Comment on above: Order Comment: Speci men Type: BLOOD SPECIMEN Ordering Facility: [facility] Address: [address] [place] [address] Performed By: #### 5 7021-8 #### [facility] [place] [facility] CLIA [id number] [address] [place] [address] [place] Immature granulocytes (Bld) [#/Vol] 10*3/uL Normal <0.10 [facility] Comment on above: Order Comment: Speci men Type: BLOOD SPECIMEN Ordering Facility: [facility] Address: [address] [place] [address] Performed By: #### 5 7021-8 #### [facility] [place] [facility] CLIA [id number] [address] [place] [address] [place] Immature granulocytes/100 WBC (Bld) 0.1 % Normal [facility] Comment on above: Order Comment: Speci men Type: BLOOD SPECIMEN Ordering Facility: [facility] Address: [address] [place] [address] Performed By: #### 5 7021-8 #### [facility] [place] [facility] CLIA [id number] [address] [place] [address] [place] Lymphocytes (Bld) [#/Vol] 2.29 10*3/uL Normal 1.00-4.00 [facility] Comment on above: Order Comment: Speci men Type: BLOOD SPECIMEN Ordering Facility: [facility] Address: [address] [place] [address] Performed By: #### 5 7021-8 #### [facility] [facility] CLIA [id number] [address] [place] Lymphocytes/100 WBC (Bld) 30.1 % Normal [facility] Comment on above: Order Comment: Speci men Type: BLOOD SPECIMEN Ordering Facility: [facility] Address: [address] [place] [address] Performed By: #### 5 7021-8 #### [facility] [place] [facility] CLIA [id number] [address] [place] [address] [place] MCH (RBC) [Entitic mass] 25.7 pg Low 26.0-34.0 [facility] Comment on above: Order Comment: Speci men Type: BLOOD SPECIMEN Ordering Facility: [facility] Address: [address] [place] [address] Performed By: #### 5 7021-8 #### [facility] [place] [facility] CLIA [id number] [address] [place] [address] MCHC (RBC) [Mass/Vol] 31.9 g/dL Normal 30.5-36.0 [facility] Comment on above: Order Comment: Speci men Type: BLOOD SPECIMEN Ordering Facility: [facility] Address: [address] [place] [address] Performed By: #### 5 7021-8 #### [facility] [place] [facility] CLIA [id number] [address] [place] [address] [place] MCV (RBC) [Entitic vol] 80.7 fL Normal 80.0-100.0 [facility] Comment on above: Order Comment: Speci men Type: BLOOD SPECIMEN Ordering Facility: [facility] Address: [address] [place] [address] Performed By: #### 5 7021-8 #### [facility] [place] [facility] CLIA [id number] [address] [place] [address] Monocytes (Bld) [#/Vol] 0.49 10*3/uL Normal <0.87 [facility] Comment on above: Order Comment: Speci men Type: BLOOD SPECIMEN Ordering Facility: [facility] Address: [address] [place] [address] Performed By: #### 5 7021-8 #### [facility] [place] [facility] CLIA [id number] [address] [place] [address] Monocytes/100 WBC (Bld) 6.4 % Normal [facility] Comment on above: Order Comment: Speci men Type: BLOOD SPECIMEN Ordering Facility: [facility] Address: [address] [place] [address] Performed By: #### 5 7021-8 #### [facility] [place] [facility] CLIA [id number] [address] [place] [address] [place] Neutrophils (Bld) [#/Vol] 4.80 10*3/uL Normal 1.45-7.50 [facility] Comment on above: Order Comment: Speci men Type: BLOOD SPECIMEN Ordering Facility: [facility] Address: [address] [place] [address] Performed By: #### 5 7021-8 #### [facility] [place] [facility] CLIA [id number] [address] [place] [address] [place] Neutrophils/100 WBC (Bld) 63.1 % Normal [facility] Comment on above: Order Comment: Speci men Type: BLOOD SPECIMEN Ordering Facility: [facility] Address: [address] [place] [address] Performed By: #### 5 7021-8 #### [facility] CLIA [id number] [address] [place] [address] [place] Nucleated RBC (Bld) [#/Vol] Normal [facility] Comment on above: Order Comment: Speci men Type: BLOOD SPECIMEN Ordering Facility: [facility] Address: [address] [place] [address] Performed By: #### 5 7021-8 #### [facility] CLIA [id number] [address] [place] [address] [place] Nucleated RBC/100 WBC (Bld) [Ratio] Normal [facility] Comment on above: Order Comment: Speci men Type: BLOOD SPECIMEN Ordering Facility: [facility] Address: [address] [address] Performed By: #### 5 7021-8 #### [facility] CLIA [id number] [address] [place] [address] [place] Platelet mean volume (Bld) [Entitic vol] 9.7 fL Normal 9.0-12.7 [facility] Comment on above: Order Comment: Speci men Type: BLOOD SPECIMEN Ordering Facility: [facility] Address: [address] [place] [address] Performed By: #### 5 7021-8 #### [facility] CLIA [id number] [address] [place] [address] [place] Platelets (Bld) [#/Vol] 227 10*3/uL Normal 150-400 [facility] Comment on above: Order Comment: Speci men Type: BLOOD SPECIMEN Ordering Facility: [facility] Address: [address] [place] [address] Performed By: #### 5 7021-8 #### [facility] CLIA [id number] [address] [place], [place] [id number] [place] [address] OF [facility] RBC (Bld) [#/Vol] 4.55 10*6/uL Normal 3.90-5.20 [facility] Comment on above: Order Comment: Speci men Type: BLOOD SPECIMEN [facility]ing Facility[facility] Address: [address] [place] [address] Performed By: #### 5 7021-8 #### [facility] CLIA [id number] [address] WBC (Bld) [#/Vol] 7.61 10*3/uL Normal 3.70-11.00 [facility] Comment on above: Order Comment: Speci men Type: BLOOD SPECIMEN [facility]ing Facility[facility] Address: [address] [place] [address] Performed By: #### 5 7021-8 #### [facility] CLIA [id number] [address] [place] [address] CK SerPl-cCncon 12-03-2022 CK [Catalytic activity/Vol] 75 U/L Normal 42-196 [facility] Comment on above: Order Comment: Speci men Type: BLOOD SPECIMEN [facility]ing [facility] Address: [address] [place] [address] Performed By: #### 2 4321-2, 2157-6 #### [facility] CLIA [id number] [address] ED NOTEon 12-03-2022 ED NOTE HNO ID: [id number] Author: Zina Trimble RN Service: ? Author Type: Registered Nurse Type: ED Notes Filed: 12/03/2022 3:20 PM Note Text: D/c instructions reviewed with pt. Pt verbalized understanding. VSS. Pt left ED ual and in stable condition. Normal [facility] ED NOTE HNO ID: [id number] Author: Zina Trimble RN Service: ? Author [...] vss. AANDOx3, will continue to monitor. Normal [facility] ED PROV NOTEon 12-03-2022 ED PROV NOTE HNO ID: [id number] Author: Stu Hallman MD Service: Emergency Medicine [...] Patient notes she just moved back from [place] and does not have any referrals or [...] HISTORY OF 2012 caudal epidural steroid injection ([employer]) SUCTION D AND C 2010 FAMILY HISTORY [...] the follow (more content not included)... Normal [facility] HCG Preg Ur Qlon 12-03-2022 HCG ( test) Ql (U) Negative Normal Negative [facility] Comment on above: Order Comment: Speci men Type: URINE SPECIMENOrdering Facility: [facility] Address: [address] [place] [id number] Result Comment: This test is intended to aid in the early detection of . Very dilute urine samples, as indicated by a low specific gravity, may not contain associate financial representative levels of hCG. This test detects [...] for . Performed By: #### 2 106-3 ####[facility] [id number] [address] Urinalysis complete panel (U )on 12-03-2022 Bacteria LM.HPF (Urine sed) [#/Area] Rare Abnormal None Seen [facility] Comment on above: Order Comment: Speci men Type: URINE SPECIMENOrdering Facility: [facility] Address: [address] [place] [address] Performed By: #### 2 4356-8 ####[facility] [id number] [address] Bilirubin Ql (U) Negative Normal Negative [facility] Comment on above: Order Comment: Speci men Type: URINE SPECIMENOrdering Facility: [facility] Address: [address] [place] [address] Performed By: #### 2 4356-8 ####[facility] [id number] [address] Clarity (Unsp spec) Clear Normal Clear [facility] Comment on above: Order Comment: Speci men Type: URINE SPECIMENOrdering Facility: [facility] Address: [address] [place] [address] Performed By: #### 2 4356-8 ####[facility] LAB[facility]IA [id number] [address] Color (U) Yellow Normal Yellow [facility] Comment on above: Order Comment: Speci men Type: URINE SPECIMENOrdering Facility: [facility] Address: [address] [place] [address] Performed By: #### 2 4356-8 ####[facility] [id number] [place] [id number] [facility] Epithelial cells LM.HPF (Urine sed) [#/Area] Few Normal [facility] Comment on above: Order Comment: Speci men Type: URINE SPECIMENOrdering Facility: [facility] Address: [address] [place] [address] Performed By: #### 2 4356-8 ####[facility] [id number] [facility] [place] [address] [facility] Glucose Test strip (U) [Mass/Vol] Negative Normal Negative [facility] Comment on above: Order Comment: Speci men Type: URINE SPECIMENOrdering Facility: [facility] Address: [address] [place] [address] Performed By: #### 2 4356-8 ####[facility] [id number] [facility] [place] [address] [facility] Hemoglobin Ql (U) 3+ Abnormal Negative [facility]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 Normal mg/dl Normal [facility] Cult,Urineon 03-27-2019 Cult,Urine Specimen Description .URINE Special Requests NOT REPORTED Culture NO SIGNIFICANT GROWTH Report Status FINAL 03/27/2019 Normal [facility] Comment on above: Performed By: #### C DP, CP #### [facility] [address] [place] [address] CBC with Diffon 03-26-2019 Auto Diff Performed YES Normal [facility] Comment on above: Performed By: #### C DP, CP #### [facility] [address] [place] [address] Abs. Basophil 0.10 k/uL Normal 0.0-0.2 [facility] Comment on above: Performed By: #### C DP, CP #### [facility] [address] [place] [address] Abs.Neutrophil (Seg) 9.50 k/uL High 2.5-7.0 [facility] Comment on above: Performed By: #### C DP, CP #### [facility] [address] [place] [address] Basophils/100 WBC (Bld) 1 % Normal 0-2 [facility] Comment on above: Performed By: #### C DP, CP #### [facility] [address] [place] [address] Eosinophils #/vol (Bld) 0.30 10*3/uL Normal 0.0-0.4 [facility] Comment on above: Performed By: #### C DP, CP #### [facility] [address] [place] [address] Eosinophils/100 WBC (Bld) 3 % Normal 0-5 [facility] Comment on above: Performed By: #### C DP, CP #### [facility] [address] [place] [address] Lymphocytes #/vol (Bld) 1.60 10*3/uL Normal 1.0-4.8 [facility] Comment on above: Performed By: #### C DP, CP #### [facility] [address] [place] [address] Lymphocytes/100 WBC (Bld) 13 % Low 15-40 [facility] Comment on above: Performed By: #### C DP, CP #### [facility] [address] [place] [address] Monocytes #/vol (Bld) 0.50 10*3/uL Normal 0.0-1.[address] [facility] Comment on above: Performed By: #### C DP, CP #### [facility] [address] [place] [address] Monocytes/100 WBC (Bld) 4 % Normal 4-8 [facility] Comment on above: Performed By: #### C DP, CP #### [place] [address] Neutrophil (Seg) 79 % High 47-75 [facility] Comment on above: Performed By: #### C DP, CP #### [place] [address] Erythrocyte distribution width Ratio (RBC) 14.3 % Normal 12.1-15.2 [facility] Comment on above: Performed By: #### C DP, CP #### [facility] [address] [place] [address] Hematocrit Volume Fraction (Bld) 38.7 % Normal 36-46 [facility] Comment on above: Performed By: #### C DP, CP #### [facility] [address] [place] [address] Hemoglobin mass conc (Bld) 12.3 g/dL Normal 12.0-16.0 [facility] Comment on above: Performed By: #### C DP, CP #### [facility] [address] [place] [address] MCH Entitic mass (RBC) 24.9 pg Low 26-34 [facility] Comment on above: Performed By: #### C DP, CP #### [facility] [address] [place] [address] MCHC mass conc (RBC) 31.8 g/dL Normal 31-37 [facility] Comment on above: Performed By: #### C DP, CP #### [facility] [address] [place] [id number] MCV Entitic volume (RBC) 78.5 fL Low 80-100 [facility] Comment on above: Performed By: #### C DP, CP #### [facility] [address] [place] [address] Platelets #/vol (Bld) 302 10*3/uL Normal 140-450 [facility] Comment on above: Performed By: #### C DP, CP #### [facility] [address] [place] [address] RBC #/vol (Bld) 4.93 10*6/uL Normal 4.0-5.2 [facility] Comment on above: Performed By: #### C DP, CP #### [facility] [address] [place] [address] WBC #/vol (Bld) 12.5 10*3/uL High 3.5-11.0 [facility] Comment on above: Performed By: #### C DP, CP #### [facility] [address] [place] [address] Abs.Imm.Granulocyte NOT REPORTED Normal 0.00-0.30 [facility] Comment on above: Performed By: #### C DP, CP #### [facility] [address] [place] [address] Immature granulocytes #/vol (Bld) NOT REPORTED Normal 0 [facility] Comment on above: Performed By: #### C DP, CP #### [facility] [address] [place] [address] NRBC Automated NOT REPORTED Normal [facility] Comment on above: Performed By: #### C DP, CP #### [facility] [address] [place] [address] [phone] Platelet mean volume Entitic volume (Bld) NOT REPORTED Normal [facility] Comment on above: Performed By: #### C DP, CP #### [facility] [address] [place] [address] [phone] Platelets #/vol (Bld) NOT REPORTED [facility] Comment on above: Performed By: #### C DP, CP #### [facility] [address] [place] [address] [phone] RBC morphology finding Nom (Bld) NOT REPORTED Normal [facility] Comment on above: Performed By: #### C DP, CP #### [facility] [address] [place] [address] [phone] WBC Morphology NOT REPORTED Normal [facility] Comment on above: Performed By: #### C DP, CP #### [facility] [address] [place] [address] [phone] Comp Metabolic Profon 2018 (cont.) Normal [facility] Comment on above: Result Comment: Aver age GFR for 30-39 years old: 107 mL/min/1.73sq m Chronic Kidney Disease: <60 mL/min/1.73sq m Kidney failure: <15 mL/min/1.73sq m eGFR calculated using average adult body mass. Additional eGFR calculator available at: http://www.PlanetTran.com/multiple_crcl_2012.htm Performed By: #### U SAMEERA Ortiz #### [facility] [address] [place] [address] [phone] Albumin mass conc 4.5 g/dL Normal 3.5-5.2 [facility] Comment on above: Performed By: #### U SAMEERA Ortiz #### [facility] [address] [place] [address] Alkaline Phos 86 U/L Normal 35-104 [facility] Comment on above: Performed By: #### SAMEERA Carcamo #### [facility] [address] [place] [address] ALT enzyme act/vol 9 U/L Normal 5-33 [facility] Comment on above: Performed By: #### SAMEERA Carcamo #### [facility] [address] [place] [address] Anion gap molar conc 13 mmol/L Normal 9-17 [facility] Comment on above: Performed By: #### SAMEERA Carcamo #### [facility] [address] [place] [address] [phone] enzyme act/vol 11 U/L Normal <32 [facility] Comment on above: Performed By: #### SAMEERA aCrcamo #### [facility] [address] [place] [address] Bilirubin Ql (U) 1.13 mg/dL Normal 0.30-1.20 [facility] Comment on above: Performed By: #### SAMEERA Carcamo #### [facility] [address] [place] [address] BUN/CRE Ratio 7 Low 9-20 [facility] Comment on above: Performed By: #### SAMEERA Carcamo #### [facility] [address] [place] [address] Calcium mass conc 9.6 mg/dL Normal 8.6-10.4 [facility] Comment on above: Performed By: #### SAMEERA Carcamo #### [facility] [address] [place] [address] Chloride molar conc 104 mmol/L Normal 98-107 [facility] Comment on above: Performed By: #### SAMEERA Carcamo #### [facility] [address] [place] [address] ([phone]) CO2 molar conc 23 mmol/L Normal 20-31 [facility] Comment on above: Performed By: #### U Angel, GINAICAO #### [facility] [address] [place] [address] [phone] Creatinine mass conc 0.70 mg/dL Normal 0.50-0.90 [facility] Comment on above: Performed By: #### U Angel, GINAICAO #### [facility] [address] [place] [address] [phone]) GFR, Amer >60 Normal >60 [facility] Comment on above: Performed By: #### U Angel, KAELYNO #### [facility] [address] [place] [address] [phone] GFR,non Amer >60 Normal >60 [facility] Comment on above: Performed By: #### U Angel, KAELYNO #### [facility] [address] [place] [address] ([phone]) Glucose mass conc 154 mg/dL High 70-99 [facility] Comment on above: Performed By: #### U Angel, GINAICAO #### [facility] [address] [place] [address] ([phone]) Potassium molar conc 4.0 mmol/L Normal 3.7-5.3 [facility] Comment on above: Performed By: #### U A, GINAICAO #### [facility] [address] [place] [address] [phone]) Protein mass conc 8.4 g/dL High 6.4-8.3 [facility] Comment on above: Performed By: #### U A, UMICAO #### [facility] [address] [place] [address] [phone]) Sodium molar conc 140 mmol/L Normal 135-144 [facility] Comment on above: Performed By: #### U GINA OrtizICAO #### [facility] [address] [place] [address] [phone]) Urea nitrogen mass conc 5 mg/dL Low 6-20 [facility] Comment on above: Performed By: #### U A, UMICAO #### [facility] [address] [place] [address] [phone] Albumin/Globulin mass ratio NOT REPORTED Normal 1.0-2.5 [facility] Comment on above: Performed By: #### U A, UMICAO #### [facility] [address] [place] [address] [phone] Staging: NOT REPORTED Normal [facility] Comment on above: Performed By: #### U A, UMICAO #### [facility] [address] [place] [address] [phone] Diff Methodon 03-26-2019 Diff Method AUTO Normal [facility] Comment on above: Performed By: #### C DP, CP #### [facility] [address] [place] [address] [phone]) HCG Screen, Bloodon 03-26-20 19 HCG Qn Negative Normal NEG [facility] Comment on above: Result Comment: Spec imens with hCG levels near the threshold of the test (25 mIU/mL) may give a negative or indeterminate result. In such cases, another test should be performed with a new specimen in 48-72 hours. If early is suspected clinically in this setting, correlation with quantitative serum b-hCG level is suggested. [employer] has confirmed the use of plasma for this test. This has not been cleared or approved by the U.S. Food and Drug Administration. The FDA has determined that such clearance is not necessary. Performed By: #### U A, UMICAO #### [facility] [address] [place] [address] [phone] Lactic Acidon 03-26-2019 Lactate molar conc 1.4 mmol/L Normal 0.5-2.2 [facility] Comment on above: Performed By: #### U A, KAELYNO #### [facility] [address] [place] [address] Lactate molar conc NOT REPORTED Normal 0.7-2.1 [facility] Comment on above: Performed By: #### U A, SAMEERA #### [facility] [address] [place] [address] Lipaseon 03-26-2019 Lipase enzyme act/vol 17 U/L Normal 13-60 [facility] Comment on above: Performed By: #### U A, SAMEERA #### [facility] [address] [place] [address] Urinalysis w/ Microon 2018 ----- Normal [facility] Comment on above: Performed By: #### C DP, CP #### [facility] [address] [place] [address] Bacteria LM.HPF #/area (Urine sed) 2+ Abnormal NONE [facility] Comment on above: Performed By: #### C DP, CP #### [facility] [address] [place] [address] Epithelial cells LM.HPF #/area (Urine sed) 5 TO 10 Normal [facility] Comment on above: Performed By: #### C DP, CP #### [facility] [address] [place] [address] Mucus Strands 3+ Abnormal NONE [facility] Comment on above: Performed By: #### C DP, CP #### [facility] [address] [place] [address] RBC #/vol (U) 0 TO 2 Normal 0-2 [facility] Comment on above: Performed By: #### C DP, CP #### [facility] [address] [place] [address] WBC #/vol (U) 5 TO 10 Normal 0 [facility] Comment on above: Performed By: #### C DP, CP #### [facility] [address] [place] [address] Acetoacetic Acid,Ur Negative Normal NEG [facility] Comment on above: Performed By: #### C DP, CP #### [facility] [address] [place] [address] Bilirubin, SemiQt,Ur Negative Normal NEG [facility] Comment on above: Performed By: #### C DP, CP #### [facility] [address] [place] [address] Color Nom (U) YELLOW Normal YEL [facility] Comment on above: Performed By: #### C DP, CP #### [facility] [address] [place] [address] Comment Normal [facility] Comment on above: Performed By: #### C DP, CP #### [facility] [address] [place] [address] Glucose,Semi-qnt,Ur Negative Normal NEG [facility] Comment on above: Performed By: #### C DP, CP #### [facility] [address] [place] [address] Hemoglobin, Ur TRACE Abnormal NEG [facility] Comment on above: Performed By: #### C DP, CP #### [facility] [address] [place] [address] Leuckocyte Esterase 2+ Abnormal NEG [facility] Comment on above: Performed By: #### C DP, CP #### [facility] [address] [place] [address] Nitrite,Ur Negative Normal NEG [facility] Comment on above: Performed By: #### C DP, CP #### [facility] [address] [place] [address] PH,Ur 5.0 Normal 5.0-8.0 [facility] Comment on above: Performed By: #### C DP, CP #### [facility] [address] [place] [address] Protein mass conc (U) Negative Normal NEG [facility] Comment on above: Performed By: #### C DP, CP #### [facility] [address] [place] [address] Spec. Yarnell,Ur 1.020 Normal 1.005-1.030 [facility] Comment on above: Performed By: #### C DP, CP #### [facility] [address] [place] [address] Turbidity HAZY Abnormal CLEAR [facility] Comment on above: Performed By: #### C DP, CP #### [facility] [address] [place] [address] Urobilinogen,Ur Normal Normal NORM [facility] Comment on above: Performed By: #### C DP, CP #### [facility] [address] [place] [address] Amorphous sediment LM Ql (Urine sed) NOT REPORTED Normal NONE [facility] Comment on above: Performed By: #### C DP, CP #### [facility] [address] [place] [address] Casts LM.LPF #/area (Urine sed) NOT REPORTED Normal [facility] Comment on above: Performed By: #### C DP, CP #### [facility] [address] [place] [address] Crystals LM Nom (Urine sed) NOT REPORTED Normal NONE [facility] Comment on above: Performed By: #### C DP, CP #### [facility] [address] [place] [address] Epithelial, Renal NOT REPORTED Normal 0 [facility] Comment on above: Performed By: #### C DP, CP #### [facility] [address] [place] [address] Other Observations NOT [facility]ED [facility]: Performed By: #### C DP, CP #### [facility] [address] [place] [address] Trichomonas NOT REPORTED Normal NONE [facility] Comment on above: Performed By: #### C DP, CP #### [facility] [address] [place] [address] Yeast LM Ql (Urine sed) NOT REPORTED Normal NONE [facility] Comment on above: Performed By: #### C DP, CP #### [facility] [address] [place] [address] Amylaseon 03-18-2019 Amylase enzyme act/vol 51 U/L Normal 30 - 110 [facility] Comment on above: Performed By: #### L IPASE, CMP, AMYLASE #### [facility] [address] [place] [address] CBC W Auto Differentialon Abs Neut # 5.9 10 X 3/mm Normal 1.8 - 7.7 [facility] Comment on above: Performed By: #### C BC Auto Diff #### [facility] [address] [place] [address] Basophils/100 WBC (Bld) 1 % Normal 0 - 1 [facility] Comment on above: Performed By: #### C BC Auto Diff #### [facility] [address] [place] [address] Eosinophils #/vol (Bld) 0.7 10 X 3/mm High 0.0 - 0.5 [facility] Comment on above: Performed By: #### C BC Auto Diff #### [facility] [address] [place] [address] Eosinophils/100 WBC (Bld) 7 % High 0 - 5 [facility] Comment on above: Performed By: #### C BC Auto Diff #### [facility] [address] [place] [address] Erythrocyte distribution width Ratio (RBC) 17.5 % High 11.5 - 14.5 [facility] Comment on above: Performed By: #### C BC Auto Diff #### [place] [address] [place] [address] Hematocrit Volume Fraction (Bld) 39.0 % Normal 36.0 - 47.0 [facility] Comment on above: Performed By: #### C BC Auto Diff #### [address] [address] Hemoglobin mass conc (Bld) 12.4 g/dL Normal 12.0 - 16.0 [facility] Comment on above: Performed By: #### C BC Auto Diff #### [address] [address] Lymphocytes #/vol (Bld) 2.2 10 X 3/mm Normal 1.0 - 4.0 [facility] Comment on above: Performed By: #### C BC Auto Diff #### [address] [address] Lymphocytes/100 WBC (Bld) 23 % Normal 20 - 40 [facility] Comment on above: Performed By: #### C BC Auto Diff #### [address] [address] MCH Entitic mass (RBC) 24.7 pg Low 27.0 - 35.0 [facility] Comment on above: Performed By: #### C BC Auto Diff #### [address] [address] MCHC mass conc (RBC) 31.9 g/dL Low 32.0 - 36.0 [facility] Comment on above: Performed By: #### C BC Auto Diff #### [facility] [address] [place] [address] MCV Entitic volume (RBC) 77.4 fL Low 80.0 - 100.0 [facility] Comment on above: Performed By: #### C BC Auto Diff #### [address] [place] [place] [address] Monocytes/100 WBC (Bld) 7 % Normal 1 - 15 [facility] Comment on above: Performed By: #### C BC Auto Diff #### [address] [place] [address] Neutrophils/100 WBC (Bld) 62 % Normal 50 - 70 [facility] Comment on above: Performed By: #### C BC Auto Diff #### [address] [place] [address] Platelet mean volume Entitic volume (Bld) 9.0 fL Normal 7.5 - 11.5 [facility] Comment on above: Performed By: #### C BC Auto Diff #### [address] [place] [address] Platelets #/vol (Bld) 285 uLx10 Normal 150 - 450 [facility] Comment on above: Performed By: #### C BC Auto Diff #### [address] [place] [address] RBC #/vol (Bld) 5.03 10 X 6/mm Normal 4.20 - 5.40 [facility] Comment on above: Performed By: #### C BC Auto Diff #### [address] [place] [address] WBC #/vol (Bld) 9.5 10 X 3/mm Normal 3.7 - 11.0 [facility] Comment on above: Performed By: #### C BC Auto Diff #### [facility] [address] [place] [address] CT ABD/PELVIS WOon 9 CT ABD/PELVIS WO [...] signed by: Dr. Fernie Elliott Normal [facility] Comprehensive Metabolic Pane guille 03-18-2019 GFR/1.73 sq M predicted among non-blacks MDRD vol rate/area (S/P/Bld) 125.[address] [facility] Comment on above: Result Comment: eGFR Interpretation: Normal: Equal to or greater than 60 mL/min/1.73 meters squared Chronic Kidney Disease: Less than 60 mL/min/1.73 meters squared Kidney Failure: Less than 15 mL/min/1.73 meters squared Performed By: #### L IPASE, CMP, AMYLASE #### [facility] [address] [place] [address] GFR/1.73 sq M predicted among non-blacks MDRD vol rate/area (S/P/Bld) 118.[address] [facility] Comment on above: Result Comment: eGFR Interpretation: Normal: Equal to or greater than 60 mL/min/1.73 meters squared Chronic Kidney Disease: Less than 60 mL/min/1.73 meters squared Kidney Failure: Less than 15 mL/min/1.73 meters squared Performed By: #### L IPASE, CMP, AMYLASE #### [address] [place] [address] GFR/1.73 sq M predicted among non-blacks MDRD vol rate/area (S/P/Bld) 129.[address] [facility] Comment on above: Result Comment: eGFR Interpretation: Normal: Equal to or greater than 60 mL/min/1.73 meters squared Chronic Kidney Disease: Less than 60 mL/min/1.73 meters squared Kidney Failure: Less than 15 mL/min/1.73 meters squared Performed By: #### L IPASE, CMP, AMYLASE #### [address] [address] GFR/1.73 sq M predicted among non-blacks MDRD vol rate/area (S/P/Bld) 192.[address] [facility] Comment on above: Performed By: #### L IPASE, CMP, AMYLASE #### [address] [place] [address] GFR/1.73 sq M predicted among non-blacks MDRD vol rate/area (S/P/Bld) 166.[address] [facility] Comment on above: Result Comment: eGFR Interpretation: Normal: Equal to or greater than 60 mL/min/1.73 meters squared Chronic Kidney Disease: Less than 60 mL/min/1.73 meters squared Kidney Failure: Less than 15 mL/min/1.73 meters squared Performed By: #### L IPASE, CMP, AMYLASE #### [address] [place] [address] GFR/1.73 sq M predicted among non-blacks MDRD vol rate/area (S/P/Bld) 137.[address] [facility] Comment on above: Performed By: #### L IPASE, CMP, AMYLASE #### [facility] [address] [place] [address] GFR/1.73 sq M predicted among non-blacks MDRD vol rate/area (S/P/Bld) 144.[address] [facility] Comment on above: Performed By: #### L IPASE, CMP, AMYLASE #### [address] [address] GFR/1.73 sq M predicted among non-blacks MDRD vol rate/area (S/P/Bld) 149.[address] [facility] Comment on above: Performed By: #### L IPASE, CMP, AMYLASE #### [address] [address] Age Reported 28 year(s) Normal [facility] Comment on above: Performed By: #### L IPASE, CMP, AMYLASE #### [address] [place] [address] Albumin mass conc 4.3 g/dL Normal 3.5 - 5.0 [facility] Comment on above: Performed By: #### L IPASE, CMP, AMYLASE #### [address] [place] [address] ALP enzyme act/vol 80 U/L Normal 38 - 126 [facility] Comment on above: Performed By: #### L IPASE, CMP, AMYLASE #### [address] [place] [address] ALT enzyme act/vol 28 U/L Normal 0 - 35 [facility] Comment on above: Performed By: #### L IPASE, CMP, AMYLASE #### [facility] [address] [place] [address] AST enzyme act/vol 35 U/L Normal 14 - 36 [facility] Comment on above: Performed By: #### L IPASE, CMP, AMYLASE #### [address] [place] [address] Bilirubin mass conc 1.2 mg/dL Normal 0.2 - 1.3 [facility] Comment on above: Performed By: #### L IPASE, CMP, AMYLASE #### [address] [address] Calcium mass conc 9.5 mg/dL Normal 8.4 - 10.2 [facility] Comment on above: Performed By: #### L IPASE, CMP, AMYLASE #### [address] [address] Chloride molar conc 102 mmol/L Normal 98 - 107 [facility] Comment on above: Performed By: #### L IPASE, CMP, AMYLASE #### [address] [address] CO2 molar conc 23 mmol/L Normal 22 - 32 [facility] Comment on above: Performed By: #### L IPASE, CMP, AMYLASE #### [address] [place] [address] Creatinine mass conc 0.66 mg/dL Normal 0.52 - 1.04 [facility] Comment on above: Performed By: #### L IPASE, CMP, AMYLASE #### [address] [place] [address] Glucose mass conc 87 mg/dL Normal 65 - 100 [facility] Comment on above: Performed By: #### L IPASE, CMP, AMYLASE #### [address] [place] [address] Potassium molar conc 4.6 mmol/L Normal 3.6 - 5.0 [facility] Comment on above: Performed By: #### L IPASE, CMP, AMYLASE #### [address] [place] [place] [address] Protein mass conc 7.7 g/dL Normal 6.3 - 8.2 [facility] Comment on above: Performed By: #### L IPASE, CMP, AMYLASE #### [address] [place] [address] Sodium molar conc 136 mmol/L Normal 135 - 145 [facility] Comment on above: Performed By: #### L IPASE, CMP, AMYLASE #### [address] [address] Urea nitrogen mass conc 6 mg/dL Low 7 - 17 [facility] Comment on above: Performed By: #### L IPASE, CMP, AMYLASE #### [address] [address] Lipaseon 03-18-2019 Lipase enzyme act/vol 81 U/L Normal 23 - 300 [facility] Comment on above: Performed By: #### L IPASE, CMP, AMYLASE #### [address] [place] [address] hCG, Qualitative-Serumon Internal Control ACCEPTABLE Normal [facility] Comment on above: Performed By: #### H CG,QUAL SERUM #### [address] [address] hCG, Qualitative-Serum Negative Normal NEGATIVE [facility] Comment on above: Performed By: #### H CG,QUAL SERUM #### [address] [place] [address] Age at specimen collection = Normal [facility] Comment on above: Performed By: #### H CG,QUAL SERUM #### [address] [place] [address] Performed By: #### C BC Auto Diff #### [address] [place] [address] Performed By: #### L IPASE, CMP, AMYLASE #### [address] [place] [address] CBCon 02-26-2019 ABSOLUTE BAS 0.1 X10 Normal [facility] Comment on above: Performed By: #### A CBC ####Testing performed at [address] [address] ABSOLUTE EOS 0.10 X10 Normal [facility] Comment on above: Performed By: #### A CBC ####Testing performed at [address] [address] ABSOLUTE NEUTROPHIL COUNT 6.2 x10 Normal 1.0-7.0 [facility] Comment on above: Performed By: #### A CBC ####Testing performed at [address] [address] Basophils/100 WBC (Bld) 1.2 % Normal 0.0-2.0 [facility] Comment on above: Performed By: #### A CBC ####Testing performed at [address] [address] DTYPE AUTO DIFF Normal [facility] Comment on above: Performed By: #### A CBC ####Testing performed at [address] [address] Eosinophils/100 WBC (Bld) 1.5 % Normal 0.0-11.0 [facility] Comment on above: Performed By: #### A CBC ####Testing performed at [address] [address] Lymphocytes #/vol (Bld) 2.40 X10 Normal [facility] Comment on above: Performed By: #### A CBC ####Testing performed at [address] [address] Lymphocytes/100 WBC (Bld) 25.7 % Normal 20.0-55.0 [facility] Comment on above: Performed By: #### A CBC ####Testing performed at [address] [address] Monocytes #/vol (Bld) 0.5 X10 Normal [facility] Comment on above: Performed By: #### A CBC ####Testing performed at [address] [address] Monocytes/100 WBC (Bld) 5.2 % Normal 0.0-10.0 [facility] Comment on above: Performed By: #### A CBC ####Testing performed at [address] [address] Neutrophils/100 WBC (Bld) 66.4 % Normal 37.0-75.0 [facility] Comment on above: Performed By: #### A CBC ####Testing performed at [address] [address] Erythrocyte distribution width Ratio (RBC) 17.6 % High 11.5-14.5 [facility] Comment on above: Performed By: #### A CBC ####Testing performed at [address] [address] Hematocrit Volume Fraction (Bld) 36.7 % Normal 36.0-48.0 [facility] Comment on above: Performed By: #### A CBC ####Testing performed at [address] [place] [address] Hemoglobin mass conc (Bld) 11.8 g/dL Low 12.0-16.0 [facility] Comment on above: Performed By: #### A CBC ####[place] [address] MCH Entitic mass (RBC) 24.5 pg Low 26.0-35.0 [facility] Comment on above: Performed By: #### A CBC ####[place] [address] MCHC mass conc (RBC) 32.3 g/dL Normal 27.0-37.0 [facility] Comment on above: Performed By: #### A CBC ####[place] [address] MCV Entitic volume (RBC) 75.9 fL Low 80.0-100.0 [facility] Comment on above: Performed By: #### A CBC ####[place] [address] Platelet mean volume Entitic volume (Bld) 8.1 fL Normal 7.4-11.0 [facility] Comment on above: Performed By: #### A CBC ####[place] [address] Platelets #/vol (Bld) 320 /cmm Normal 130.0-400.0 [facility] Comment on above: Performed By: #### A CBC ####[place] [address] RBC #/vol (Bld) 4.83 /cmm Normal 4.0-5.4 [facility] Comment on above: Performed By: #### A CBC ####[place] [address] WBC #/vol (Bld) 9.3 /cmm Normal 3.6-11.0 [facility] Comment on above: Performed By: #### A CBC ####Testing performed at [address] [address] CMP FASTINGon 02-26-2019 A:G RATIO 1.2 RATIO Low 1.3-2.2 [facility] Comment on above: Performed By: #### A CBC ####Testing performed at [address] [address] Albumin mass conc 4.6 G/dl Normal 3.5-5.0 [facility] Comment on above: Performed By: #### A CBC ####Testing performed at [address] [address] ALP enzyme act/vol 85 U/L Normal 38-126 [facility] Comment on above: Performed By: #### A CBC ####Testing performed at [address] [address] ALT enzyme act/vol 17 U/L Normal 9-52 [facility] Comment on above: Performed By: #### A CBC ####Testing performed at [address] [address] AST enzyme act/vol 22 U/L Normal 14-36 [facility] Comment on above: Performed By: #### A CBC ####Testing performed at [address] [address] Bilirubin mass conc 1.0 mg/dL Normal 0.2-1.3 [facility] Comment on above: Performed By: #### A CBC ####Testing performed at [address] [address] Calcium mass conc 9.3 mg/dL Normal 8.4-10.2 [facility] Comment on above: Performed By: #### A CBC ####Testing performed at [address] [address] Chloride molar conc 102 mmol/L Normal 98-107 [facility] Comment on above: Result Comment: Plea note: Triglyceride levels of 600mg/dL or higher may positively bias chloride results by approximately 2.1 mmol Performed By: #### A CBC ####[place] [address] CO2 molar conc 27 mmol/L Normal 22-30 [facility] Comment on above: Performed By: #### A CBC ####Testing performed at [place] [id number] Creatinine mass conc 0.8 mg/dL Normal 0.7-1.2 [facility] Comment on above: Performed By: #### A CBC ####[place] [address] EST. GFR, >60 Normal [facility] Comment on above: Performed By: #### A CBC ####Testing performed at [place] [id number] EST. GFR,Non >60 Normal [facility] Comment on above: Performed By: #### A CBC ####[place] [address] GFR/1.73 sq M predicted among non-blacks MDRD vol rate/area (S/P/Bld) Average GFR for 30-39 years old = 109. Normal [facility] Comment on above: Result Comment: Support Coordinator frantz Kidney disease, GFR = <60. Kidney failure, GFR = <15. The GFR estimate is not adjusted for extreme body surface area or acute process, nor has it been validated for women or ethnic groups other than and . Performed By: #### A CBC ####Testing performed at [place] [id number] Glucose mass conc 91 mg/dL Normal 70-100 [facility] Comment on above: Result Comment: NORMAL <100 mg/dL PREDIABETES 101-126 mg/dL DIABETES 126 mg/dL or higher Performed By: #### A CBC ####Testing performed at [address] [place] [address] Potassium molar conc 4.0 mmol/L Normal 3.5-5.1 [facility] Comment on above: Performed By: #### A CBC ####Testing performed at [address] [address] Protein mass conc 8.4 g/dL High 6.3-8.2 [facility] Comment on above: Performed By: #### A CBC ####Testing performed at [address] [address] Sodium molar conc 139 mmol/L Normal 137-145 [facility] Comment on above: Performed By: #### A CBC ####Testing performed at [address] [address] Urea nitrogen mass conc 8 mg/dL Normal 7-20 [facility] Comment on above: Performed By: #### A CBC ####Testing performed at [address] [address] ESRon 02-26-2019 ESR Velocity (Bld) 59 mm/h High 0-15 [facility] LIPASE,SERUMon 02-26-2019 LIPASE,SERUM 53 U/L Normal 23-300 [facility] Comment on above: Performed By: #### A CBC ####Testing performed at [address] [address] CBCon 02-18-2019 ABSOLUTE BAS 0.1 X10 Normal [facility] Comment on above: Performed By: #### A CBC, CMPF ####Testing performed at [address] [address] ABSOLUTE EOS 0.40 X10 Normal [facility] Comment on above: Performed By: #### A CBC, CMPF ####Testing performed at [address] [address] ABSOLUTE NEUTROPHIL COUNT 5.4 x10 Normal 1.0-7.0 [facility] Comment on above: Performed By: #### A CBC, CMPF ####Testing performed at [address] [place] [address] Basophils/100 WBC (Bld) 0.6 % Normal 0.0-2.0 [facility] Comment on above: Performed By: #### A CBC, CMPF ####Testing performed at [address] [place] [address] DTYPE AUTO DIFF Normal [facility] Comment on above: Performed By: #### A CBC, CMPF ####Testing performed at [address] [place] [address] Eosinophils/100 WBC (Bld) 4.0 % Normal 0.0-11.0 [facility] Comment on above: Performed By: #### A CBC, CMPF ####Testing performed at [address] [place] [address] Lymphocytes #/vol (Bld) 2.30 X10 Normal [facility] Comment on above: Performed By: #### A CBC, CMPF ####Testing performed at [address] [place] [address] Lymphocytes/100 WBC (Bld) 26.0 % Normal 20.0-55.0 [facility] Comment on above: Performed By: #### A CBC, CMPF ####Testing performed at [address] [place] [address] Monocytes #/vol (Bld) 0.6 X10 Normal [facility] Comment on above: Performed By: #### A CBC, CMPF ####Testing performed at [address] [place] [address] Monocytes/100 WBC (Bld) 7.1 % Normal 0.0-10.0 [facility] Comment on above: Performed By: #### A CBC, CMPF ####Testing performed at [address] [place] [address] Neutrophils/100 WBC (Bld) 62.3 % Normal 37.0-75.0 [facility] Comment on above: Performed By: #### A CBC, CMPF ####Testing performed at [address] [address] Erythrocyte distribution width Ratio (RBC) 17.1 % High 11.5-14.5 [facility] Comment on above: Performed By: #### A CBC, CMPF ####Testing performed at [place] [id number] Hematocrit Volume Fraction (Bld) 36.7 % Normal 36.0-48.0 [facility] Comment on above: Performed By: #### A CBC, CMPF ####Testing performed at [address] [address] Hemoglobin mass conc (Bld) 11.8 g/dL Low 12.0-16.0 [facility] Comment on above: Performed By: #### A CBC, CMPF ####Testing performed at [address] [address] MCH Entitic mass (RBC) 24.5 pg Low 26.0-35.0 [facility] Comment on above: Performed By: #### A CBC, CMPF ####Testing performed at [address] [address] MCHC mass conc (RBC) 32.2 g/dL Normal 27.0-37.0 [facility] Comment on above: Performed By: #### A CBC, CMPF ####Testing performed at [address] [address] MCV Entitic volume (RBC) 75.9 fL Low 80.0-100.0 [facility] Comment on above: Performed By: #### A CBC, CMPF ####Testing performed at [address] [address] Platelet mean volume Entitic volume (Bld) 8.2 fL Normal 7.4-11.0 [facility] Comment on above: Performed By: #### A CBC, CMPF ####[place] [address] Platelets #/vol (Bld) 283 /cmm Normal 130.0-400.0 [facility] Comment on above: Performed By: #### A CBC, CMPF ####[place] [address] RBC #/vol (Bld) 4.83 /cmm Normal 4.0-5.4 [facility] Comment on above: Performed By: #### A CBC, CMPF ####[place] [address] WBC #/vol (Bld) 8.8 /cmm Normal 3.6-11.0 [facility] Comment on above: Performed By: #### A CBC, CMPF ####[place] [address] CMP FASTINGon 02-18-2019 Potassium molar conc 3.8 mmol/L Normal 3.5-5.1 [facility] Comment on above: Performed By: #### A CBC, CMPF ####[place] [address] A:G RATIO 1.2 RATIO Low 1.3-2.2 [facility] Comment on above: Performed By: #### A CBC, CMPF ####[place] [address] Albumin mass conc 4.6 G/dl Normal 3.5-5.0 [facility] Comment on above: Performed By: #### A CBC, CMPF ####[place] [address] ALP enzyme act/vol 78 U/L Normal 38-126 [facility] Comment on above: Performed By: #### A CBC, CMPF ####Testing performed at [address] [address] ALT enzyme act/vol 18 U/L Normal 9-52 [facility] Comment on above: Performed By: #### A CBC, CMPF ####Testing performed at [address] [address] AST enzyme act/vol 18 U/L Normal 14-36 [facility] Comment on above: Performed By: #### A CBC, CMPF ####Testing performed at [address] [address] Bilirubin mass conc 1.1 mg/dL Normal 0.2-1.3 [facility] Comment on above: Performed By: #### A CBC, CMPF ####Testing performed at [address] [address] Calcium mass conc 9.0 mg/dL Normal 8.4-10.2 [facility] Comment on above: Performed By: #### A CBC, CMPF ####Testing performed at [address] [address] Chloride molar conc 104 mmol/L Normal 98-107 [facility] Comment on above: Result Comment: Plea se note: Triglyceride levels of 600mg/dL or higher may positively bias chloride results by approximately 2.1 mmol Performed By: #### A CBC, CMPF ####Testing performed at [address] [address] CO2 molar conc 26 mmol/L Normal 22-30 [facility] Comment on above: Performed By: #### A CBC, CMPF ####Testing performed at [address] [address] Creatinine mass conc 1.1 mg/dL Normal 0.7-1.2 [facility] Comment on above: Performed By: #### A CBC, CMPF ####Testing performed at [address] [address] EST. GFR, >60 Normal [facility] Comment on above: Performed By: #### A CBC, CMPF ####Testing performed at [address] [address] EST. GFR,Non >60 Normal [facility] Comment on above: Performed By: #### A CBC, CMPF ####Testing performed at [address] [address] GFR/1.73 sq M predicted among non-blacks MDRD vol rate/area (S/P/Bld) Average GFR for 30-39 years old = 109. Normal [facility] Comment on above: Result Comment: Support Coordinator frantz Kidney disease, GFR = <60. Kidney failure, GFR = <15. The GFR estimate is not adjusted for extreme body surface area or acute process, nor has it been validated for women or ethnic groups other than and . Performed By: #### A CBC, CMPF ####Testing performed at [place] [id number] Glucose mass conc 79 mg/dL Normal 70-100 [facility] Comment on above: Result Comment: NORMAL <100 mg/dL PREDIABETES 101-126 mg/dL DIABETES 126 mg/dL or higher Performed By: #### A CBC, CMPF ####Testing performed at [address] [address] Protein mass conc 8.3 g/dL High 6.3-8.2 [facility] Comment on above: Performed By: #### A CBC, CMPF ####Testing performed at [place] [id number] Sodium molar conc 142 mmol/L Normal 137-145 [facility] Comment on above: Performed By: #### A CBC, CMPF ####Testing performed at [place] [id number] Urea nitrogen mass conc 6 mg/dL Low 7-20 [facility] Comment on above: Performed By: #### A CBC, CMPF ####Testing performed at [place] [id number] CT ABDOMEN/PELVIS WITHOUT CO NTRASTon 02-18-2019 CT [...] abdomen and pelvis. 3. Prior cholecystectomy. Normal [facility] ESRon 02-18-2019 ESR Velocity (Bld) 49 mm/h High 0-15 [facility] Comment on above: Performed By: #### E SR ####Testing performed at [address] [address] URINE CULTUREon 02-18-2019 Bacteria identified Cx Nom (U) SPECIMEN DESCRIPTION URINE CLEAN CATCH UA DIPSTICK LEUKOCYTE POSITIVE * Result Note: NITRITE NEGATIVE * CULTURE NO GROWTH 1 DAY * Result Note: Testing performed at [place] [address] * REPORT STATUS PENDING Normal [facility] Comment on above: Performed By: #### A URNC ####Testing performed at [address] [address]Lwttpyy performed at [address] [address] URINE HCG QUALon 02-18-2019 HCG.beta subunit ( test) Ql (U) Negative Normal [facility] Comment on above: Performed By: #### U HCGT ####Testing performed at [address] [address] URINE MACROSCOPICon 02-19-20 19 Bilirubin Ql (U) Negative Normal NEGATIVE [facility] Comment on above: Performed By: #### U HCGT ####Testing performed at [address] [place] [address] Clarity Nom (U) CLEAR Normal CLEAR [facility] Comment on above: Performed By: #### U HCGT ####Testing performed at [address] [place] [address] Color Nom (U) YELLOW Normal YELLOW [facility] Comment on above: Performed By: #### U HCGT ####Testing performed at [address] [place] [address] Glucose Ql (U) Negative Normal NEGATIVE [facility] Comment on above: Performed By: #### U HCGT ####Testing performed at [address] [place] [address] pH (U) 5.5 [pH] Normal 5.0-7.0 [facility] Comment on above: Performed By: #### U HCGT ####Testing performed at [address] [place] [address] Protein mass conc (U) Negative Normal NEGATIVE [facility] Comment on above: Performed By: #### U HCGT ####Testing performed at [address] [place] [address] URINE HEMOGLOBIN TRACE-LYSED Abnormal NEGATIVE [facility] Comment on above: Performed By: #### U HCGT ####Testing performed at [address] [address] URINE KETONE Negative Normal NEGATIVE [facility] Comment on above: Performed By: #### U HCGT ####Testing performed at [address] [address] URINE LEUKOTEST TRACE Abnormal NEGATIVE [facility] Comment on above: Performed By: #### U HCGT ####Testing performed at [address] [address] URINE NITRATES Negative Normal NEGATIVE [facility] Comment on above: Performed By: #### U HCGT ####Testing performed at [address] [address] URINE SPEC GRAVITY 1.020 Normal 1.010-1.025 [facility] Comment on above: Performed By: #### U HCGT ####Testing performed at [address] [address] Urobilinogen Qn (U) 0.2 mg/dl Normal 0.2-1.0 [facility] Comment on above: Performed By: #### U HCGT ####Testing performed at [address] [address] URINE MICROSCOPICon 02-19-20 19 Bacteria LM.HPF #/area (Urine sed) TRACE Abnormal NEGATIVE [facility] Comment on above: Performed By: #### U HCGT ####Testing performed at [address] [address] Casts LM.LPF #/area (Urine sed) NONE Normal [facility] Comment on above: Performed By: #### U HCGT ####Testing performed at [address] [address] CRYSTAL NONE Normal [facility] Comment on above: Performed By: #### U HCGT ####Testing performed at [address] [address] Epithelial cells LM.HPF #/area (Urine sed) 1 TO 5 Normal [facility] Comment on above: Performed By: #### U HCGT ####Testing performed at [address] [address] Mucus Ql (Urine sed) Negative Normal NEGATIVE [facility] Comment on above: Performed By: #### U HCGT ####Testing performed at [address] [address] RBC #/vol (U) 1 TO 5 Normal NEGATIVE [facility] Comment on above: Performed By: #### U HCGT ####Testing performed at [address] [address] URINE COMMENT REFLEX CULTURE PER ESTABLISHED CRITERIA. Normal [facility] Comment on above: Performed By: #### U HCGT ####Testing performed at [address] [address] WBC #/vol (U) 1 TO 5 Normal NEGATIVE [facility] Comment on above: Performed By: #### U HCGT ####Testing performed at [address] [address] Organism ID w/ [id number] Organism ID w/ Sensi Specimen Descriptio n .FECES Special Requests NOT REPORTED Culture NO SHIGELLA SP. ISOLATED Nucleic acid detected, but organism was not recovered in culture. Susceptibility testing cannot be performed. Report Status FINAL 02/08/2019 Normal [facility] Comment on above: Performed By: #### C DP #### [facility] [address] [place] [address] #### JULIO, BMP #### [facility] [address] [place] [address] Stool PCR [place] 02-10-20 19 Shigella sp PCR Positive Abnormal [facility] [place] Comment on above: Result Comment: Analytical studies [...] performed. Performed By: #### C DP #### [address] [address] #### GERRY KIM #### [address] [place] [address] CBC with Diffon 02-08-2019 Abs. Basophil 0.04 k/uL Normal 0.00-0.20 [facility] Comment on above: Performed By: #### C DP #### [address] [address] #### JULIO BMP #### [address] [place] [address] Abs.Imm.Granulocyte 0.05 k/uL Normal 0.00-0.30 [facility] Comment on above: Performed By: #### C DP #### [address] [address] #### TROPGunner, BMP #### [address] [place] [id number] Abs.Neutrophil (Seg) 5.19 k/uL Normal 1.50-8.10 [facility] Comment on above: Performed By: #### C DP #### [address] [address] #### TROPI, BMP #### [address] [place] [address] Basophils/100 WBC (Bld) 1 % Normal 0-2 [facility] Comment on above: Performed By: #### C DP #### [address] [address] #### TROPI, BMP #### [address] [place] [address] Eosinophils #/vol (Bld) 10*3/uL Normal 0.00-0.44 [facility] Comment on above: Performed By: #### C DP #### [address] [address] #### TROPI, BMP #### [address] [place] [address] Eosinophils/100 WBC (Bld) 0 % Low 1-4 [facility] Comment on above: Performed By: #### C DP #### [address] [address] #### TROPI, BMP #### [address] [place] [address] Erythrocyte distribution width Ratio (RBC) 15.6 % High 11.8-14.4 [facility] Comment on above: Performed By: #### C DP #### [address] [address] #### TROPI, BMP #### [address] [place] [address] Hematocrit Volume Fraction (Bld) 37.1 % Normal 36.3-47.1 [facility] Comment on above: Performed By: #### C DP #### [address] [address] #### TROPI, BMP #### [address] [place] [address] Hemoglobin mass conc (Bld) 11.2 g/dL Low 11.9-15.1 [facility] Comment on above: Performed By: #### C DP #### [address] [address] #### TROPI, BMP #### [address] [place] [address] Immature granulocytes #/vol (Bld) 1 % High 0 [facility] Comment on above: Performed By: #### C DP #### [address] [address] #### TROPI, BMP #### [address] [place] [address] Lymphocytes #/vol (Bld) 2.13 10*3/uL Normal 1.10-3.70 [facility] Comment on above: Performed By: #### C DP #### [address] [address] #### TROPI, BMP #### [address] [place] [address] Lymphocytes/100 WBC (Bld) 27 % Normal 24-43 [facility] Comment on above: Performed By: #### C DP #### [address] [address] #### TROPI, BMP #### [address] [place] [address] MCH Entitic mass (RBC) 24.3 pg Low 25.2-33.5 [facility] Comment on above: Performed By: #### C DP #### [address] [address] #### TROPI, BMP #### [address] [place] [address] MCHC mass conc (RBC) 30.2 g/dL Normal 28.4-34.8 [facility] Comment on above: Performed By: #### C DP #### [address] [address] #### TROPI, BMP #### [address] [place] [id number] MCV Entitic volume (RBC) 80.7 fL Low 82.6-102.9 [facility] Comment on above: Performed By: #### C DP #### [address] [address] #### TROPI, BMP #### [address] [place] [address] Monocytes #/vol (Bld) 0.45 10*3/uL Normal 0.10-1.20 [facility] Comment on above: Performed By: #### C DP #### [address] [address] #### TROPI, BMP #### [address] [place] [address] Monocytes/100 WBC (Bld) 6 % Normal 3-12 [facility] Comment on above: Performed By: #### C DP #### [address] [address] #### TROPI, BMP #### [address] [place] [address] Neutrophil (Seg) 65 % Normal 36-65 [facility] Comment on above: Performed By: #### C DP #### [address] [address] #### TROPI, BMP #### [address] [place] [address] NRBC Automated 0.0 per 100 WBC Normal 0.0 [facility] Comment on above: Performed By: #### C DP #### [address] [address] #### TROPI, BMP #### [address] [place] [address] Platelet mean volume Entitic volume (Bld) 10.5 fL Normal 8.1-13.5 [facility] Comment on above: Performed By: #### C DP #### [address] [address] #### TROPI, BMP #### [address] [place] [address] Platelets #/vol (Bld) 258 10*3/uL Normal 138-453 [facility] Comment on above: Performed By: #### C DP #### [address] [address] #### TROPI, BMP #### [address] [place] [address] RBC #/vol (Bld) 4.60 10*6/uL Normal 3.95-5.11 [facility] Comment on above: Performed By: #### C DP #### [address] [address] #### TROPI, BMP #### [address] [place] [address] WBC #/vol (Bld) 7.9 10*3/uL Normal 3.5-11.3 [facility] Comment on above: Performed By: #### C DP #### [address] [address] #### TROPI, BMP #### [address] [place] [address] Auto Diff Performed NOT REPORTED Normal [place] Comment on above: Performed By: #### C DP #### [address] [address] #### TROPI, BMP #### [address] [place] [address] Platelets #/vol (Bld) NOT REPORTED Normal [facility] Comment on above: Performed By: #### C DP #### [address] [address] #### TROPI, BMP #### [address] [place] [address] RBC morphology finding Nom (Bld) NOT REPORTED Normal [facility] Comment on above: Performed By: #### C DP #### [address] [address] #### TROPI, BMP #### [address] [place] [address] WBC Morphology NOT REPORTED Normal [facility] Comment on above: Performed By: #### C DP #### [address] [address] #### TROPI, BMP #### [address] [place] [address] Comp Metabolic Pr/rfx MGon 0 - Potassium molar conc 3.5 mmol/L Low 3.7-5.3 [facility] Comment on above: Performed By: #### C DP #### [address] [address] #### TROPI, BMP #### [address] [place] [address] (cont.) Normal [facility] Comment on above: Result Comment: Aver age GFR for 30-39 years old: 107 mL/min/1.73sq m Chronic Kidney Disease: <60 mL/min/1.73sq m Kidney failure: <15 mL/min/1.73sq m eGFR calculated using average adult body mass. Additional eGFR calculator available at: http://www.[employer]/multiple_crcl_2011.htm Performed By: #### C DP #### [address] [address] #### TROPI, BMP #### [address] [place] [address] Albumin mass conc 4.0 g/dL Normal 3.5-5.2 [facility] Comment on above: Performed By: #### C DP #### [address] [address] #### TROPI, BMP #### [address] [place] [address] Albumin/Globulin mass ratio 1.2 {ratio} Normal 1.0-2.5 [facility] Comment on above: Performed By: #### C DP #### [address] [address] #### TROPI, BMP #### [address] [place] [address] Alkaline Phos 88 U/L Normal 35-104 [facility] Comment on above: Performed By: #### C DP #### [address] [address] #### TROPI, BMP #### [address] [place] [address] ALT enzyme act/vol 9 U/L Normal 5-33 [facility] Comment on above: Performed By: #### C DP #### [address] [address] #### TROPI, BMP #### [address] [place] [address] Anion gap molar conc 11 mmol/L Normal 9-17 [facility] Comment on above: Performed By: #### C DP #### [address] [address] #### TROPI, BMP #### [address] [place] [address] AST enzyme act/vol 10 U/L Normal <32 [facility] Comment on above: Performed By: #### C DP #### [address] [address] #### TROPI, BMP #### [address] [place] [address] Bilirubin Ql (U) 0.66 mg/dL Normal 0.3-1.2 [facility] Comment on above: Performed By: #### C DP #### [address] [address] #### TROPI, BMP #### [address] [place] [address] BUN/CRE Ratio 11 Normal 9-20 [facility] Comment on above: Performed By: #### C DP #### [address] [address] #### TROPI, BMP #### [address] [place] [address] Calcium mass conc 9.4 mg/dL Normal 8.6-10.4 [facility] Comment on above: Performed By: #### C DP #### [address] [address] #### TROPI, BMP #### [address] [place] [address] Chloride molar conc 104 mmol/L Normal 98-107 [facility] Comment on above: Performed By: #### C DP #### [address] [address] #### TROPI, BMP #### [address] [place] [address] CO2 molar conc 26 mmol/L Normal 20-31 [facility] Comment on above: Performed By: #### C DP #### [address] [address] #### TROPI, BMP #### [address] [place] [address] Creatinine mass conc 0.74 mg/dL Normal 0.50-0.90 [facility] Comment on above: Performed By: #### C DP #### [address] [address] #### TROPI, BMP #### [address] [place] [address] GFR, Amer >60 Normal >60 [facility] Comment on above: Performed By: #### C DP #### [address] [address] #### TROPI, BMP #### [address] [place] [address] GFR,non Amer >60 Normal >60 [facility] Comment on above: Performed By: #### C DP #### [address] [address] #### TROPI, BMP #### [address] [place] [address] Glucose mass conc 115 mg/dL High 70-99 [facility] Comment on above: Performed By: #### C DP #### [address] [address] #### TROPI, BMP #### [address] [place] [address] Protein mass conc 7.3 g/dL Normal 6.4-8.3 [facility] Comment on above: Performed By: #### C DP #### [address] [address] #### TROPI, BMP #### [address] [place] [address] Sodium molar conc 141 mmol/L Normal 135-144 [facility] Comment on above: Performed By: #### C DP #### [address] [address] #### TROPI, BMP #### [address] [place] [address] Staging: Normal [facility] Comment on above: Result Comment: Stag e 1: Some kidney damage normal GFR Stage 2: Mild kidney damage GFR 60-89 Stage 3: Moderate kidney damage GFR 30-59 Stage 4: Severe kidney damage GFR 15-29 Stage 5: Severe kidney damage GFR <15 ESRD - chronic treatment by dialysis or transplant Performed By: #### C DP #### [address] [address] #### TROPI, BMP #### [address] [place] [address] Urea nitrogen mass conc 8 mg/dL Normal 6-20 [facility] Comment on above: Performed By: #### C DP #### [address] [address] #### TROPI, BMP #### [address] [place] [address] HCG, ,Urineon 02-08 HCG.beta subunit ( test) Ql (U) Negative Normal NEG [facility] Comment on above: Result Comment: Spec imens with hCG levels near the threshold of the test (25 mIU/mL) may give a negative or indeterminate result. In such cases, another test should be performed with a new specimen in 48-72 hours. If early is suspected clinically in this setting, correlation with quantitative serum b-hCG level is suggested. [facility] has confirmed the use of plasma for this test. This has not been cleared or approved by the U.S. Food and Drug Administration. The FDA has determined that such clearance is not necessary. Performed By: #### C DP #### [address] [address] #### TROPI, BMP #### [address] [place] [address] Magnesiumon 02-08-2019 Magnesium mass conc 2.0 mg/dL Normal 1.6-2.6 [facility] Comment on above: Performed By: #### C DP #### [address] [address] #### TROPI, BMP #### [address] [place] [address] Sedimentation Rateon 019 Sedimentation Rate 36 mm High 0-20 [facility] Comment on above: Performed By: #### C DP #### [address] [address] #### TROPI, BMP #### [address] [place] [address] Urinalysis, Routineon 2018 Acetoacetic Acid,Ur Negative Normal NEG [facility] Comment on above: Performed By: #### C DP #### [address] [address] #### TROPI, BMP #### [address] [place] [address] Bilirubin, SemiQt,Ur Negative Normal NEG [facility] Comment on above: Performed By: #### C DP #### [address] [address] #### TROPI, BMP #### [address] [place] [address] Color Nom (U) YELLOW Normal [facility] Comment on above: Performed By: #### C DP #### [address] [address] #### TROPI, BMP #### [address] [place] [address] Glucose,Semi-qnt,Ur Negative Normal NEG [facility] Comment on above: Performed By: #### C DP #### [address] [address] #### TROPI, BMP #### [address] [place] [address] Hemoglobin, Ur Negative Normal NEG [facility] Comment on above: Performed By: #### C DP #### [address] [address] #### TROPI, BMP #### [address] [place] [address] Leuckocyte Esterase TRACE Abnormal NEG [facility] Comment on above: Performed By: #### C DP #### [address] [address] #### TROPI, BMP #### [address] [place] [address] Nitrite,Ur Negative Normal NEG [facility] Comment on above: Performed By: #### C DP #### [address] [address] #### TROPI, BMP #### [address] [place] [address] PH,Ur 6.0 Normal 5.0-9.0 [facility] Comment on above: Performed By: #### C DP #### [address] [address] #### TROPI, BMP #### [address] [place] [address] Protein mass conc (U) Negative Normal NEG [place] Comment on above: Performed By: #### C DP #### [address] [address] #### TROPI, BMP #### [address] [place] [address] Spec. Yarnell,Ur <1.005 Low 1.010-1.020 [facility] Comment on above: Performed By: #### C DP #### [address] [address] #### TROPI, BMP #### [address] [place] [address] Turbidity CLEAR Normal CLEAR [facility] Comment on above: Performed By: #### C DP #### [address] [address] #### TROPI, BMP #### [address] [place] [address] Urobilinogen,Ur Normal Normal NORM [place] Comment on above: Performed By: #### C DP #### [address] [address] #### TROPI, BMP #### [address] [place] [address] Comment NOT REPORTED Normal [facility] Comment on above: Performed By: #### C DP #### [address] [address] #### TROPI, BMP #### [address] [place] [address] Urinalysis,Microon 9 ----- Normal [facility] Comment on above: Performed By: #### C DP #### [address] [address] #### TROPI, BMP #### [address] [place] [address] Bacteria LM.HPF #/area (Urine sed) TRACE Abnormal NONE [facility] Comment on above: Performed By: #### C DP #### [address] [address] #### TROPI, BMP #### [address] [place] [address] Epithelial cells LM.HPF #/area (Urine sed) 5 TO 10 Normal 0-25 [facility] Comment on above: Performed By: #### C DP #### [address] [address] #### TROPI, BMP #### [address] [place] [address] RBC #/vol (U) 0 TO 2 Normal 0-2 [facility] Comment on above: Performed By: #### C DP #### [address] [address] #### TROPI, BMP #### [address] [place] [address] WBC #/vol (U) 0 TO 2 Normal 0-5 [facility] Comment on above: Performed By: #### C DP #### [address] [address] #### TROPI, BMP #### [address] [place] [address] Amorphous sediment LM Ql (Urine sed) NOT REPORTED Normal NONE [facility] Comment on above: Performed By: #### C DP #### [address] [address] #### TROPI, BMP #### [address] [place] [address] Casts LM.LPF #/area (Urine sed) NOT REPORTED Normal [facility] Comment on above: Performed By: #### C DP #### [address] [address] #### TROPI, BMP #### [address] [place] [address] Crystals LM Nom (Urine sed) NOT REPORTED Normal NONE [facility] Comment on above: Performed By: #### C DP #### [address] [address] #### TROPI, BMP #### [address] [place] [address] Epithelial, Renal NOT REPORTED Normal 0 [facility] Comment on above: Performed By: #### C DP #### [address] [address] #### TROPI, BMP #### [address] [place] [address] Mucus Strands NOT REPORTED Normal NONE [place] Comment on above: Performed By: #### C DP #### [address] [address] #### TROPI, BMP #### [address] [place] [address] Other Observations NOT REPORTED Normal NREQ [facility] Comment on above: Performed By: #### C DP #### [address] [address] #### TROPI, BMP #### [address] [place] [address] Trichomonas NOT REPORTED Normal [facility] Comment on above: Performed By: #### C DP #### [address] [address] #### TROPI, BMP #### [address] [place] [address] Yeast LM Ql (Urine sed) NOT REPORTED Normal [facility] Comment on above: Performed By: #### C DP #### [address] [address] #### TROPI, BMP #### [address] [place] [address] Stool PCR [place] 02-06-20 19 Campylobacter sp PCR NEGATIVE: No Campylobacter spp. (jejuni or coli) DNA Detected Normal [facility] Comment on above: Performed By: #### C DP #### [address] [address] #### TROPI, BMP #### [address] [place] [address] E coli enterotox PCR NEGATIVE: No Enterotoxigenic E. coli (ETEC) Heat-labile and heat-stable (LT/ST) Normal EECNEG [facility] Comment on above: Result Comment: DNA Detected Performed By: #### C DP #### [address] [address] #### TROPI, BMP #### [address] [place] [address] Plesiomonas sp PCR Negative Normal [facility] Comment on above: Performed By: #### C DP #### [address] [address] #### TROPI, BMP #### [address] [place] [address] Salmonella sp PCR Negative Normal SALNEG [facility] Comment on above: Performed By: #### C DP #### [address] [address] #### TROPI, BMP #### [address] [place] [address] Shigatoxin gene PCR Negative Normal STXNEG [facility] Comment on above: Performed By: #### C DP #### [address] [address] #### TROPI, BMP #### [address] [place] [address] Vibrio sp PCR NEGATIVE: No Vibrio (V. vulnificus, V, parahaemolyticus and V. cholerae) DNA [facility] Comment on above: Result Comment: Dete cted Performed By: #### C DP #### [address] [address] #### TROPI, BMP #### [address] [place] [address] Yersinia gene PCR Negative Normal YERNEG [facility] Comment on above: Performed By: #### C DP #### [address] [place] [address] #### TROPI, BMP #### [address] [place], [place] [id number] C diff Ag + Toxinon 02-05-20 19 C diff Ag + Toxin Negative Normal [facility] Comment on above: Performed By: #### C DP #### [address] [address] #### TROPI, BMP #### [address] [place] [address] Specimen Description .FECES Normal [facility] Comment on above: Performed By: #### C DP #### [address] [address] #### TROPI, BMP #### [address] [place], [place] [id number] CBCon 02-04-2019 Erythrocyte distribution width Ratio (RBC) 15.9 % High 11.8-14.4 [facility] Comment on above: Performed By: #### C P, CBC #### [address] [place], [place] [address]83 Medical Scientist: Eddi Desai MD Hematocrit Volume Fraction (Bld) 36.8 % Normal 36.3-47.1 [facility] Comment on above: Performed By: #### C P, CBC #### [address] [place], [place] [id number] Medical Scientist: Eddi Desai MD Hemoglobin mass conc (Bld) 11.2 g/dL Low 11.9-15.1 [facility] Comment on above: Performed By: #### C P, CBC #### [address] [place], [place] [id number] Medical Scientist: Eddi Desai MD MCH Entitic mass (RBC) 24.1 pg Low 25.2-33.5 [facility] Comment on above: Performed By: #### C P, CBC #### [facility] [address] [place], [place] [address] Medical Scientist: Eddi Desai MD MCHC mass conc (RBC) 30.4 g/dL Normal 28.4-34.8 [facility] Comment on above: Performed By: #### C P, CBC #### [facility] [address] [place], [facility]83 Medical Scientist: Eddi Desai MD MCV Entitic volume (RBC) 79.3 fL Low 82.6-102.9 [facility] Comment on above: Performed By: #### C P, CBC #### [address] [place], [facility]83 Medical Scientist: Eddi Desai MD NRBC Automated 0.0 per 100 WBC Normal 0.0 [facility] Comment on above: Performed By: #### C P, CBC #### [address] [place], [facility]83 Medical Scientist: Eddi Desai MD Platelet mean volume Entitic volume (Bld) 10.4 fL Normal 8.1-13.5 [facility] Comment on above: Performed By: #### C P, CBC #### [address] [place], [place] [address] Medical Scientist: Eddi Desai MD Platelets #/vol (Bld) 278 10*3/uL Normal 138-453 [facility] Comment on above: Performed By: #### C P, CBC #### [address] [place], [facility]83 Medical Scientist: Eddi Desai MD RBC #/vol (Bld) 4.64 10*6/uL Normal 3.95-5.11 [facility] Comment on above: Performed By: #### C P, CBC #### [facility] [address] [place], [place] 9909383 Medical Scientist: Eddi Desai MD WBC #/vol (Bld) 11.8 10*3/uL High 3.5-11.3 [facility] Comment on above: Performed By: #### C P, CBC #### [facility] [address] [place] [address] Medical Scientist: Eddi Desai MD Comp Metabolic Profon 2018 (cont.) Normal [facility] Comment on above: Result Comment: Aver age GFR for 30-39 years old: 107 mL/min/1.73sq m Chronic Kidney Disease: <60 mL/min/1.73sq m Kidney failure: <15 mL/min/1.73sq m eGFR calculated using average adult body mass. Additional eGFR calculator available at: http://www.[employer]/multiple_crcl_2011.htm Performed By: #### C P, CBC #### [facility] [address] [place] [address] Medical Scientist: Eddi Desai MD Albumin mass conc 3.9 g/dL Normal 3.5-5.2 [facility] Comment on above: Performed By: #### C P, CBC #### [facility] [address] [place], [place] 3348383 Medical Scientist: Eddi Desai MD Albumin/Globulin mass ratio 1.1 {ratio} Normal 1.0-2.5 [facility] Comment on above: Performed By: #### C P, CBC #### [facility] [address] [place] [address] Medical Scientist: Eddi Desai MD Alkaline Phos 83 U/L Normal 35-104 [facility] Comment on above: Performed By: #### C P, CBC #### [facility] [address] [place] [address] Medical Scientist: Eddi Desai MD ALT enzyme act/vol 12 U/L Normal 5-33 [facility] Comment on above: Performed By: #### C P, CBC #### [facility] [address] [place], [place] 0880383 Medical Scientist: Eddi Desai MD Anion gap molar conc 14 mmol/L Normal 9-17 [facility] Comment on above: Performed By: #### C P, CBC #### [facility] [address] [place], [place] 1328583 Medical Scientist: Eddi Desai MD AST enzyme act/vol 12 U/L Normal <32 [facility] Comment on above: Performed By: #### C P, CBC #### [facility] [address] [place], [place] [address] Medical Scientist: Eddi Desai MD Bilirubin Ql (U) 0.55 mg/dL Normal 0.3-1.2 [facility] Comment on above: Performed By: #### C P, CBC #### [facility] [address] [place], [place] 5998583 Medical Scientist: Eddi Desai MD BUN/CRE Ratio 13 Normal 9-20 [facility] Comment on above: Performed By: #### C P, CBC #### [facility] [address] [place], [place] 7401183 Medical Scientist: Eddi Desai MD Calcium mass conc 9.3 mg/dL Normal 8.6-10.4 [facility] Comment on above: Performed By: #### C P, CBC #### [facility] [address] [place], [place] 026[address]83 Medical Scientist: Eddi Desai MD Chloride molar conc 103 mmol/L Normal 98-107 [facility] Comment on above: Performed By: #### C P, CBC #### [facility] [address] [place], [place] [address]112283 Medical Scientist: Eddi Desai MD CO2 molar conc 22 mmol/L Normal 20-31 [facility] Comment on above: Performed By: #### C P, CBC #### [facility] [address] [place], [place] 707[address]83 Medical Scientist: Eddi Desai MD Creatinine mass conc 0.80 mg/dL Normal 0.50-0.90 [facility] Comment on above: Performed By: #### C P, CBC #### [facility] [address] [place] [address] Medical Scientist: Eddi Desai MD GFR, Amer >60 Normal >60 [facility] Comment on above: Performed By: #### C P, CBC #### [facility] [address] [place], [place] 2165283 Medical Scientist: Eddi Desai MD GFR,non Amer >60 Normal >60 [facility] Comment on above: Performed By: #### C P, CBC #### [facility] [address] [place], [place] 0[address]83 Medical Scientist: Eddi Desai MD Glucose mass conc 99 mg/dL Normal 70-99 [facility] Comment on above: Performed By: #### C P, CBC #### [facility] [address] [place], [place] 6429783 Medical Scientist: Eddi Desai MD Potassium molar conc 3.5 mmol/L Low 3.7-5.3 [facility] Comment on above: Performed By: #### C P, CBC #### [facility] [address] [place], [place] 9493583 Medical Scientist: Eddi Desai MD Protein mass conc 7.5 g/dL Normal 6.4-8.3 [facility] Comment on above: Performed By: #### C P, CBC #### [facility] [address] [place], [place] 0480683 Medical Scientist: Eddi Desai MD Sodium molar conc 139 mmol/L Normal 135-144 [facility] Comment on above: Performed By: #### C P, CBC #### [facility] [address] [place] [address] Medical Scientist: Eddi Desai MD Staging: Normal [facility] Comment on above: Result Comment: Stag e 1: Some kidney damage normal GFR Stage 2: Mild kidney damage GFR 60-89 Stage 3: Moderate kidney damage GFR 30-59 Stage 4: Severe kidney damage GFR 15-29 Stage 5: Severe kidney damage GFR <15 ESRD - chronic treatment by dialysis or transplant Performed By: #### C P, CBC #### [facility] [address] [place] [address] Medical Scientist: Eddi Desai MD Urea nitrogen mass conc 10 mg/dL Normal 6-20 [facility] Comment on above: Performed By: #### C P, CBC #### [facility] [address] [place] [id number] Medical Scientist: Eddi Desai MD Drug Scr, Abuse, Uron 2018 Amphetamine(s),Ur Negative Normal NEG [facility] Comment on above: Performed By: #### U HCG, LANE, UMICAO, UAX #### [address] [place] [address] Medical Scientist: Eddi Desai MD Barbiturate(s),Ur Negative Normal NEG [facility] Comment on above: Performed By: #### U HCG, LANE, UMICAO, UAX #### [facility] [address] [place] [address] Medical Scientist: Eddi Desai MD Base excess Calculated molar conc (Bld) Negative Normal NEG [facility] Comment on above: Performed By: #### U HCG, LANE, UMICAO, UAX #### [facility] [address] [place] [address] Medical Scientist: Eddi Desai MD Benzodiazepine(s) Negative Normal NEG [facility] Comment on above: Performed By: #### U HCG, LANE, UMICAO, UAX #### [facility] [address] [place], [place] 1804083 Medical Scientist: Eddi Desai MD Buprenorphrine, Ur Negative Normal NEG [facility] Comment on above: Performed By: #### U HCG, LANE, UMICAO, UAX #### [facility] [address] [place] [id number] Medical Scientist: Eddi Desai MD Cannabinoid(s),Ur Positive Abnormal NEG [facility] Comment on above: Performed By: #### U HCG, LANE, UMICAO, UAX #### [address] [place] [address] Medical Scientist: Eddi Desai MD Methadone Ql (U) Negative Normal [facility] Comment on above: Performed By: #### U HCG, LANE, UMICAO, UAX #### [facility] [address] [place] [address] Dr[address] [place] [id number] Medical Scientist: Eddi Desai MD Methamphetamine, Ur Negative Normal [facility] Comment on above: Performed By: #### U HCG, LANE, UMICAO, UAX #### [facility] [address] [place] [address] Dr. [place], [facility]83 Medical Scientist: Eddi Desai MD Opiate(s), Ur Negative Normal NEG [facility] Comment on above: Performed By: #### U HCG, LANE, UMICAO, UAX #### [address] [place] [address] Medical Scientist: Eddi Desai MD Oxycodone, Urine Negative Normal NEG [facility] Comment on above: Performed By: #### U HCG, LANE, UMICAO, UAX #### [facility] [address] [place] [address] Medical Scientist: Eddi Desai MD Phencyclidine, Ur Negative Normal NEG [facility] Comment on above: Performed By: #### U HCG, LANE, UMICAO, UAX #### [facility] [address] [place], [place] [id number] Medical Scientist: Eddi Desai MD Protein mass conc (U) Negative Normal NEG [place] Comment on above: Performed By: #### U HCG, LANE, UMICAO, UAX #### [facility] [address] [place] [address] Medical Scientist: Eddi Desai MD Tricyclic antidepressants Screen Ql (U) Negative [facility] Comment on above: Result Comment: Drug screen results are to be used for medical purposes only. All positive results are unconfirmed. Testing for employment or legal uses should be sent to a reference laboratory for confirmation. Performed By: #### U HCG, LANE, UMICAO, UAX #### [facility] [address] [place] [address] Medical Scientist: Eddi Desai MD Interpretive Info NOT REPORTED Normal [facility] Comment on above: Performed By: #### U HCG, LANE, UMICAO, UAX #### [facility] [address] [place] [address] Medical Scientist: Eddi Desai MD MDMA, Urine NOT REPORTED Normal NEG [facility] Comment on above: Performed By: #### U HCG, LANE, UMICAO, UAX #### [facility] [address] [place] [address] Medical Scientist: Eddi Desai MD HCG, ,Urineon 02-04 HCG.beta subunit ( test) Ql (U) Negative Normal [facility] Comment on above: Result Comment: Spec imens with hCG levels near the threshold of the test (25 mIU/mL) may give a negative or indeterminate result. In such cases, another test should be performed with a new specimen in 48-72 hours. If early is suspected clinically in this setting, correlation with quantitative serum b-hCG level is suggested. [facility] has confirmed the use of plasma for this test. This has not been cleared or approved by the U.[place]. Food and Drug Administration. The FDA has determined that such clearance is not necessary. Performed By: #### U HCG, LANE, UMICAO, UAX #### [facility] [address] [place], [place] [address]83 Medical Scientist: Eddi Desai MD Lactic Acidon 02-04-2019 Lactate molar conc 1.5 mmol/L Normal 0.5-2.2 [facility] Comment on above: Performed By: #### L ACTIC #### [facility] [address] [place] [address] Medical Scientist: Eddi Desai MD Lactate molar conc NOT REPORTED Normal 0.7-2.1 [facility] Comment on above: Performed By: #### L ACTIC #### [facility] [address] [place] [address] Medical Scientist: Eddi Desai MD UA w/Reflex Cultureon 2018 Acetoacetic Acid,Ur Negative Normal NEG [facility] Comment on above: Performed By: #### U HCG, LANE, UMICAO, UAX #### [facility] [address] [place] [address] Medical Scientist: Eddi Desai MD Bilirubin.direct mass conc Negative Normal NEG [facility] Comment on above: Performed By: #### U HCG, LANE, UMICAO, UAX #### [facility] [address] [place] [address] Medical Scientist: Eddi Desai MD Color Nom (U) YELLOW Normal YEL [facility] Comment on above: Performed By: #### U HCG, LANE, UMICAO, UAX #### [facility] [address] [place] [address] Medical Scientist: Eddi Desai MD Glucose mass conc Negative Normal [facility] Comment on above: Performed By: #### U HCG, LANE, UMICAO, UAX #### [facility] [address] [place], [place] 594[address]83 Medical Scientist: Eddi Desai MD Hemoglobin mass conc (Bld) Negative Normal [facility] Comment on above: Performed By: #### U HCG, LANE, UMICAO, UAX #### [facility] [address] [place] [address] Medical Scientist: Eddi Desai MD Leuckocyte Esterase Negative [facility] Comment on above: Performed By: #### U HCG, LAEN, UMICAO, UAX #### [facility] [address] [place] [address] Medical Scientist: Eddi Desai MD Nitrite,Ur Negative [facility] Comment on above: Performed By: #### U HCG, LANE, UMICAO, UAX #### [facility] [address] [place] [address] Medical Scientist: Eddi Desai MD PH,Ur 6.0 Normal 5.0-9.0 [facility] Comment on above: Performed By: #### U HCG, LANE, UMICAO, UAX #### [facility] [address] [place] [address] Medical Scientist: Eddi Desai MD Protein mass conc Negative Normal [facility] Comment on above: Performed By: #### U HCG, LANE, UMICAO, UAX #### [facility] [address] [place] [address] Medical Scientist: Eddi Desai MD Spec. Yarnell,Ur 1.010 Normal 1.010-1.020 [facility] Comment on above: Performed By: #### U HCG, LANE, UMICAO, UAX #### [facility] [address] [place], [facility]83 Medical Scientist: Eddi Desai MD Turbidity CLEAR Normal CLEAR [facility] Comment on above: Performed By: #### U HCG, LANE, UMICAO, UAX #### [facility] [address] [place], [place] [address] Medical Scientist: Eddi Desai MD Urobilinogen,Ur Normal Normal NORM [place] Comment on above: Performed By: #### U HCG, LANE, UMICAO, UAX #### [facility] [address] [place], [facility]83 Medical Scientist: Eddi Desai MD Comment NOT REPORTED Normal [facility] Comment on above: Performed By: #### U HCG, LANE, UMICAO, UAX #### [facility] [address] [place], [place] [address] Medical Scientist: Eddi Desai MD Urinalysis,Microon 9 ----- Normal [facility] Comment on above: Performed By: #### U HCG, LANE, UMICAO, UAX #### [facility] [address] [place], [place] [address] Medical Scientist: Eddi Desai MD Bacteria LM.HPF #/area (Urine sed) 1+ Abnormal NONE [facility] Comment on above: Performed By: #### U HCG, LANE, UMICAO, UAX #### [facility] [address] [place] [id number] Medical Scientist: Eddi Desai MD Epithelial cells LM.HPF #/area (Urine sed) 0 TO 2 Normal 0-25 [facility] Comment on above: Performed By: #### U HCG, LANE, UMICAO, UAX #### [facility] [address] [place], [facility]83 Medical Scientist: Eddi Desai MD RBC #/vol (U) 0 TO 2 Normal 0-2 [facility] Comment on above: Performed By: #### U HCG, LANE, UMICAO, UAX #### [facility] [address] [place] [id number] Medical Scientist: Eddi Desai MD WBC #/vol (U) 0 TO 2 Normal 0-5 [facility] Comment on above: Performed By: #### U HCG, LANE, UMICAO, UAX #### [facility] [address] [place] [id number] Medical Scientist: Eddi Desai MD Amorphous sediment LM Ql (Urine sed) NOT REPORTED Normal [facility] Comment on above: Performed By: #### U HCG, LANE, UMICAO, UAX #### [facility] [address] [place] [id number] Medical Scientist: Eddi Desai MD Casts LM.LPF #/area (Urine sed) NOT REPORTED Normal [facility] Comment on above: Performed By: #### U HCG, LANE, UMICAO, UAX #### [facility] [address] [place] [id number] Medical Scientist: Eddi Desai MD Crystals LM Nom (Urine sed) NOT REPORTED Normal [facility] Comment on above: Performed By: #### U HCG, ALNE, UMICAO, UAX #### [facility] [address] [place] [id number] Medical Scientist: dEdi Desai MD Epithelial, Renal NOT REPORTED Normal 0 [facility] Comment on above: Performed By: #### U HCG, LANE, UMICAO, UAX #### [facility] [address] [place] [id number] Medical Scientist: Eddi Desai MD Mucus Strands NOT REPORTED Normal NONE [place] Comment on above: Performed By: #### U HCG, LANE, UMICAO, UAX #### [facility] [address] [place], [place] [address] Medical Scientist: Eddi Desai MD Other Observations NOT REPORTED Normal NREQ [facility] Comment on above: Performed By: #### U HCG, LANE, UMICAO, UAX #### [facility] [address] [place] [address] Medical Scientist: Eddi Desai MD Trichomonas NOT REPORTED Normal [facility] Comment on above: Performed By: #### U HCG, LANE, UMICAO, UAX #### [facility] [address] [place] [address] Medical Scientist: Eddi Desai MD Yeast LM Ql (Urine sed) NOT REPORTED Normal [facility] Comment on above: Performed By: #### U HCG, LANE, UMICAO, UAX #### [facility] [address] [place], [place] 429[address]83 Medical Scientist: Eddi Desai MD CBC W Auto Differentialon Abs Neut # 4.8 10 X 3/mm Normal 1.8 - 7.7 [facility] Comment on above: Performed By: #### C BC Auto Diff #### [address] [address] Basophils/100 WBC (Bld) 1 % Normal 0 - 1 [facility] Comment on above: Performed By: #### C BC Auto Diff #### [address] [address] Eosinophils #/vol (Bld) 0.5 10 X 3/mm Normal 0.0 - 0.5 [facility] Comment on above: Performed By: #### C BC Auto Diff #### [address] [place] [address] Eosinophils/100 WBC (Bld) 7 % High 0 - 5 [facility] Comment on above: Performed By: #### C BC Auto Diff #### [facility] [address] [place] [address] Erythrocyte distribution width Ratio (RBC) 16.3 % High 11.5 - 14.5 [facility] Comment on above: Performed By: #### C BC Auto Diff #### [place] [address] [place] [address] Hematocrit Volume Fraction (Bld) 35.1 % Low 36.0 - 47.0 [facility] Comment on above: Performed By: #### C BC Auto Diff #### [address] [address] Hemoglobin mass conc (Bld) 11.1 g/dL Low 12.0 - 16.0 [facility] Comment on above: Performed By: #### C BC Auto Diff #### [place] [address] [place] [address] Lymphocytes #/vol (Bld) 2.3 10 X 3/mm Normal 1.0 - 4.0 [facility] Comment on above: Performed By: #### C BC Auto Diff #### [place] [address] [place] [address] Lymphocytes/100 WBC (Bld) 29 % Normal 20 - 40 [facility] Comment on above: Performed By: #### C BC Auto Diff #### [place] [address] [place] [address] MCH Entitic mass (RBC) 24.0 pg Low 27.0 - 35.0 [facility] Comment on above: Performed By: #### C BC Auto Diff #### [address] [place] [address] MCHC mass conc (RBC) 31.6 g/dL Low 32.0 - 36.0 [facility] Comment on above: Performed By: #### C BC Auto Diff #### [facility] [address] [place] [address] MCV Entitic volume (RBC) 76.2 fL Low 80.0 - 100.0 [facility] Comment on above: Performed By: #### C BC Auto Diff #### [place] [address] [place] [address] Monocytes/100 WBC (Bld) 6 % Normal 1 - 15 [facility] Comment on above: Performed By: #### C BC Auto Diff #### [place] [address] [place] [address] Neutrophils/100 WBC (Bld) 59 % Normal 50 - 70 [facility] Comment on above: Performed By: #### C BC Auto Diff #### [place] [address] [place] [address] Platelet mean volume Entitic volume (Bld) 8.7 fL Normal 7.5 - 11.5 [facility] Comment on above: Performed By: #### C BC Auto Diff #### [place] [address] [place] [address] Platelets #/vol (Bld) 261 uLx10 Normal 150 - 450 [facility] Comment on above: Performed By: #### C BC Auto Diff #### [place] [address] [place] [address] RBC #/vol (Bld) 4.61 10 X 6/mm Normal 4.20 - 5.40 [facility] Comment on above: Performed By: #### C BC Auto Diff #### [place] [address] [address] [place], [place] 9100071 (739) WBC #/vol (Bld) 8.2 10 X 3/mm Normal 3.7 - 11.0 [facility] Comment on above: Performed By: #### C BC Auto Diff #### [facility] [address] [place] [address] Comprehensive Metabolic Pane giulle 01-20-2019 GFR/1.73 sq M predicted among non-blacks MDRD vol rate/area (S/P/Bld) 118.[address] [facility] Comment on above: Result Comment: eGFR Interpretation: Normal: Equal to or greater than 60 mL/min/1.73 meters squared Chronic Kidney Disease: Less than 60 mL/min/1.73 meters squared Kidney Failure: Less than 15 mL/min/1.73 meters squared Performed By: #### C MP #### [address] [place] [address] GFR/1.73 sq M predicted among non-blacks MDRD vol rate/area (S/P/Bld) 163.[address] [facility] Comment on above: Result Comment: eGFR Interpretation: Normal: Equal to or greater than 60 mL/min/1.73 meters squared Chronic Kidney Disease: Less than 60 mL/min/1.73 meters squared Kidney Failure: Less than 15 mL/min/1.73 meters squared Performed By: #### C MP #### [facility] [address] [place] [address] GFR/1.73 sq M predicted among non-blacks MDRD vol rate/area (S/P/Bld) 128.[address] [facility] Comment on above: Result Comment: eGFR Interpretation: Normal: Equal to or greater than 60 mL/min/1.73 meters squared Chronic Kidney Disease: Less than 60 mL/min/1.73 meters squared Kidney Failure: Less than 15 mL/min/1.73 meters squared Performed By: #### C MP #### [facility] [address] [place] [address] GFR/1.73 sq M predicted among non-blacks MDRD vol rate/area (S/P/Bld) 122.98 [facility] Comment on above: Result Comment: eGFR Interpretation: Normal: Equal to or greater than 60 mL/min/1.73 meters squared Chronic Kidney Disease: Less than 60 mL/min/1.73 meters squared Kidney Failure: Less than 15 mL/min/1.73 meters squared Performed By: #### C MP #### [address] [place] [address] GFR/1.73 sq M predicted among non-blacks MDRD vol rate/area (S/P/Bld) 136.41 [facility] Comment on above: Performed By: #### C MP #### [address] [address] GFR/1.73 sq M predicted among non-blacks MDRD vol rate/area (S/P/Bld) 188.63 [facility] Comment on above: Performed By: #### C MP #### [address] [place] [address] GFR/1.73 sq M predicted among non-blacks MDRD vol rate/area (S/P/Bld) 149.05 [facility] Comment on above: Performed By: #### C MP #### [address] [place] [address] GFR/1.73 sq M predicted among non-blacks MDRD vol rate/area (S/P/Bld) 141.77 [facility] Comment on above: Performed By: #### C MP #### [address] [facility] [place] [address] Age Reported 28 year(s) [facility] Comment on above: Performed By: #### C MP #### [address] [place] [address] Albumin mass conc 3.9 g/dL Normal 3.5 - 5.0 [facility] Comment on above: Performed By: #### C MP #### [facility] [address] [place] [address] ALP enzyme act/vol 81 U/L Normal 38 - 126 [facility] Comment on above: Performed By: #### C MP #### [facility] [address] [place] [address] ALT enzyme act/vol 39 U/L High 0 - 35 [facility] Comment on above: Performed By: #### C MP #### [facility] [address] [place] [address] AST enzyme act/vol 30 U/L Normal 14 - 36 [facility] Comment on above: Performed By: #### C MP #### [address] [place] [address] Bilirubin mass conc 0.6 mg/dL Normal 0.2 - 1.3 [facility] Comment on above: Performed By: #### C MP #### [address] [place] [address] Calcium mass conc 8.6 mg/dL Normal 8.4 - 10.2 [facility] Comment on above: Performed By: #### C MP #### [facility] [address] [place] [address] Chloride molar conc 105 mmol/L Normal 98 - 107 [facility] Comment on above: Performed By: #### C MP #### [facility] [address] [place] [address] CO2 molar conc 23 mmol/L Normal 22 - 32 [facility] Comment on above: Performed By: #### C MP #### [facility] [address] [place] [address] Creatinine mass conc 0.67 mg/dL Normal 0.52 - 1.04 [facility] Comment on above: Performed By: #### C MP #### [facility] [address] [place] [address] Glucose mass conc 81 mg/dL Normal 65 - 100 [facility] Comment on above: Performed By: #### C MP #### [facility] [address] [place] [address] Potassium molar conc 3.9 mmol/L Normal 3.6 - 5.0 [facility] Comment on above: Performed By: #### C MP #### [address] [place] [facility] [place] [address] Protein mass conc 7.3 g/dL Normal 6.3 - 8.2 [facility] Comment on above: Performed By: #### C MP #### [address] [place] [address] Sodium molar conc 139 mmol/L Normal 135 - 145 [facility] Comment on above: Performed By: #### C MP #### [address] [place] [address] Urea nitrogen mass conc 5 mg/dL Low 7 - 17 [facility] Comment on above: Performed By: #### C MP #### [facility] [address] [place] [address] Age at specimen collection = Normal [facility] Comment on above: Performed By: #### C MP #### [address] [place] [address] Performed By: #### C BC Auto Diff #### [address] [place] [address] FERRITINon 11-08-2018 Ferritin mass conc 10 ng/mL Normal 6.24-137 [facility] Comment on above: Result Comment: SARAH ENOPAUSAL FEMALES 6.9-282.5 POSTMENOPAUSAL FEMALES 14.0-233.1 Performed By: #### F EPRO, FRTN, B12, AFOL ####Testing performed at [address] [address] FOLATEon 11-08-2018 FOLATE 12.0 NG/ML Normal 2.56-20.0 [facility] Comment on above: Performed By: #### F EPRO, FRTN, B12, AFOL ####Testing performed at [address] [address] IRON PROFILEon 11-08-2018 IRON BINDING 416 UG/DL Normal 250-450 [facility] Comment on above: Performed By: #### F EPRO, FRTN, B12, AFOL ####Testing performed at [address] [address] TRANSFERRIN SATURATION,CALCULATED 13 % Normal [facility] Comment on above: Performed By: #### F EPRO, FRTN, B12, AFOL ####Testing performed at [address] [address] Iron mass conc 53 ug/dL Normal 37-170 [facility] Comment on above: Performed By: #### F EPRO, FRTN, B12, AFOL ####Testing performed at [address] [address] VITAMIN B12on 11-08-2018 Cobalamin (Vitamin B12) mass conc 351 pg/mL Normal 239-931 [facility] Comment on above: Performed By: #### F EPRO, FRTN, B12, AFOL ####Testing performed at [address] [address] BHCG,QUANTITATIVEon 10-07-20 18 BHCG,QUANTITATIVE <2.39 Normal [facility] Comment on above: Result Comment: [facility] INTERPRETIVE RANGES: NON FEMALE 0-6 MIU/MLMALE ADULT [...] testing of urine.Testing performed at [place] [address] Performed By: #### B HCG2 ####[place] [address] POCT URINE PREGNANCYon 10-07 HCG.beta subunit Qn Invalid Interpretation Code [facility] Work Phone: Interpretation and review of laboratory results Normal Invalid Interpretation Code [facility] Work Phone: [place] REMOVE INTRAUTERINE DEVIC Brian 10-07-2018 Joseph Renteria DO 10/07 1:25 PM IUD REMOVAL PROCEDURE PERFORMED BY: Joseph Renteria DO DYE HOUSE WHEEL OPERATOR(S): None ATTENDING: Joseph Renteria DO PROCEDURE DATE: [...] THIS PROCEDURE REQUIRE A UNIVERSAL PROTOCOL? Yes. [place] Protocol is required Preprocedure verification is complete [...] 6 months. Periods may become shorter and/or watch engineer thereafter. Cycles may remain irregular, become infrequent, or even cease. Consider as fertility is rapidly returned after removal of an IUD Questions have been answered. Informed consent has been obtained. Cervix was prepped with betadine x 3. IUD strings were visualized and IUD removed in whole in the usual fashion utilizing gentle traction with a Elsy needle charter and tour bus driver. SPECIMEN(S) REMOVED: none DISPOSITION OF SPECIMEN(S): N/A ESTIMATED BLOOD LOSS: None ESTIMATED FLUIDS: No crystalloid, colloid or blood products given.. FINDINGS: unremarkable contour of 8 cm uterus, unremarkable adenexa Brand: Radha CONDITION: Stable. Patient tolerated procedure well. COMPLICATIONS: None. Good hemostasis obtained. PLAN: Follow up prn Invalid Interpretation Code [facility] Work Phone: Cult,Bloodon 09-20-2018 Cult,Blood Specimen Description .BLOOD Special Requests 10 ML LEFT FOREARM Culture NO GROWTH 6 DAYS Report Status FINAL 09/20/2018 Normal [facility] Comment on above: Performed By: #### U A, KAELYN #### [address] [place] [address] CHLAM/GC AMPLIFon 09-17-2018 CHLAMYDIA NUC. AMP Negative Normal Negative [facility] GONOCOCCUS NUC. AMP Negative Normal Negative [facility] Comment on above: Result Comment: [facility] Cult,Urineon 09-15-2018 Cult,Urine Specimen Description .URINE, MIDSTREAM Special Requests NOT REPORTED Culture NO SIGNIFICANT GROWTH Report Status FINAL 09/15/2018 [facility] Comment on above: Performed By: #### U A, STEFF #### [facility] [address] [place] [address] TESTOSTER.FREE-TOTALon 09-15 FREE TESTOSTERONE 0.9 pg/mL Normal 0.0-4.2 [facility] Comment on above: Result Comment: PERF ORMED AT [facility] Performed By: #### A CBC, CHEM7F, BHCG2 ####Testing performed at [facility] [place] [address] Amylaseon 09-14-2018 Amylase enzyme act/vol 31 U/L Normal 28-100 [facility] Comment on above: Performed By: #### C DP, HCG, LACTIC, ISABEL, CP, LIP #### [facility] [address] [place] [address] CBC with Diffon 09-14-2018 Abs. Basophil 0.00 k/uL Normal 0.0-0.2 [facility] Comment on above: Performed By: #### C DP, HCG, LACTIC, ISABEL, CP, LIP #### [facility] [address] [place] [address] Abs.Neutrophil (Seg) 6.10 k/uL Normal 2.5-7.0 [facility] Comment on above: Performed By: #### C DP, HCG, LACTIC, ISABEL, CP, LIP #### [facility] [address] [place] [address] Auto Diff Performed YES Normal [facility] Comment on above: Performed By: #### C DP, HCG, LACTIC, ISABEL, CP, LIP #### [facility] [address] [place] [phone] Basophils/100 WBC (Bld) 0 % Normal 0-2 [facility] Comment on above: Performed By: #### C DP, HCG, LACTIC, ISABEL, CP, LIP #### [facility] [address] [place] [phone] Eosinophils #/vol (Bld) 0.00 10*3/uL Normal 0.0-0.4 [facility] Comment on above: Performed By: #### C DP, HCG, LACTIC, ISABEL, CP, LIP #### [place] [address] Eosinophils/100 WBC (Bld) 0 % Normal 0-5 [facility] Comment on above: Performed By: #### C DP, HCG, LACTIC, ISABEL, CP, LIP #### [place] [address] Erythrocyte distribution width Ratio (RBC) 16.9 % High 12.1-15.2 [facility] Comment on above: Performed By: #### C DP, HCG, LACTIC, ISABEL, CP, LIP #### [place] [address] Hematocrit Volume Fraction (Bld) 31.0 % Low 36-46 [facility] Comment on above: Performed By: #### C DP, HCG, LACTIC, ISABEL, CP, LIP #### [place] [address] Hemoglobin mass conc (Bld) 10.1 g/dL Low 12.0-16.0 [facility] Comment on above: Performed By: #### C DP, HCG, LACTIC, ISABEL, CP, LIP #### [place] [address] Lymphocytes #/vol (Bld) 2.10 10*3/uL Normal 1.0-4.8 [facility] Comment on above: Performed By: #### C DP, HCG, LACTIC, ISABEL, CP, LIP #### [place] [address] Lymphocytes/100 WBC (Bld) 24 % Normal 15-40 [facility] Comment on above: Performed By: #### C DP, HCG, LACTIC, ISABEL, CP, LIP #### [address] [place] [address] MCH Entitic mass (RBC) 25.0 pg Low 26-34 [facility] Comment on above: Performed By: #### C DP, HCG, LACTIC, ISABEL, CP, LIP #### [facility] [address] [place] [address] MCHC mass conc (RBC) 32.6 g/dL Normal 31-37 [facility] Comment on above: Performed By: #### C DP, HCG, LACTIC, ISABEL, CP, LIP #### [place] [address] MCV Entitic volume (RBC) 76.6 fL Low 80-100 [facility] Comment on above: Performed By: #### C DP, HCG, LACTIC, ISABEL, CP, LIP #### [place] [address] Monocytes #/vol (Bld) 0.40 10*3/uL Normal 0.0-1.[address] [facility] Comment on above: Performed By: #### C DP, HCG, LACTIC, ISABEL, CP, LIP #### [place] [address] Monocytes/100 WBC (Bld) 5 % Normal 4-8 [facility] Comment on above: Performed By: #### C DP, HCG, LACTIC, ISABEL, CP, LIP #### [place] [address] Neutrophil (Seg) 71 % Normal 47-75 [facility] Comment on above: Performed By: #### C DP, HCG, LACTIC, ISABEL, CP, LIP #### [place] [address] Platelets #/vol (Bld) 499 10*3/uL High 140-450 [facility] Comment on above: Performed By: #### C DP, HCG, LACTIC, ISABEL, CP, LIP #### [place] [address] RBC #/vol (Bld) 4.05 10*6/uL Normal 4.0-5.2 [facility] Comment on above: Performed By: #### C DP, HCG, LACTIC, ISABEL, CP, LIP #### [place] [address] WBC #/vol (Bld) 8.6 10*3/uL Normal 3.5-11.0 [facility] Comment on above: Performed By: #### C DP, HCG, LACTIC, ISABEL, CP, LIP #### [place] [address] Abs.Imm.Granulocyte NOT REPORTED Normal 0.00-0.30 [facility] Comment on above: Performed By: #### C DP, HCG, LACTIC, ISABEL, CP, LIP #### [place] [address] Immature granulocytes #/vol (Bld) NOT REPORTED Normal 0 [facility] Comment on above: Performed By: #### C DP, HCG, LACTIC, ISABEL, CP, LIP #### [place] [address] NRBC Automated NOT REPORTED Normal [facility] Comment on above: Performed By: #### C DP, HCG, LACTIC, ISABEL, CP, LIP #### [place] [address] Platelet mean volume Entitic volume (Bld) NOT REPORTED Normal 6.0-12.0 [facility] Comment on above: Performed By: #### C DP, HCG, LACTIC, ISABEL, CP, LIP #### [place] [address] Platelets #/vol (Bld) NOT REPORTED Normal [facility] Comment on above: Performed By: #### C DP, HCG, LACTIC, ISABEL, CP, LIP #### [facility] [address] [place] [address] [phone] RBC morphology finding Nom (Bld) NOT REPORTED Normal [facility] Comment on above: Performed By: #### C DP, HCG, LACTIC, ISABEL, CP, LIP #### [facility] [address] [place] [address] [phone] WBC Morphology NOT REPORTED Normal [facility] Comment on above: Performed By: #### C DP, HCG, LACTIC, ISABEL, CP, LIP #### [facility] [address] [place] [address] [phone] Comp Metabolic Profon 2017 (cont.) Normal [facility] Comment on above: Result Comment: Aver age GFR for 20-29 years old: 116 mL/min/1.73sq m Chronic Kidney Disease: <60 mL/min/1.73sq m Kidney failure: <15 mL/min/1.73sq m eGFR calculated using average adult body mass. Additional eGFR calculator available at: http://www.[employer]/multiple_crcl_2012.htm Performed By: #### SAMEERA Carcamo #### [facility] [address] [place] [address] [phone] Albumin mass conc 3.5 g/dL Normal 3.5-5.2 [facility] Comment on above: Performed By: #### SAMEERA Carcamo #### [facility] [address] [place] [address] [phone] Alkaline Phos 87 U/L Normal 35-104 [facility] Comment on above: Performed By: #### SAMEERA Carcamo #### [facility] [address] [place] [address] [phone] ALT enzyme act/vol 6 U/L Normal 5-33 [facility] Comment on above: Performed By: #### U A, UMICAO #### [facility] [address] [place] [address] Anion gap molar conc 12 mmol/L Normal 9-17 [facility] Comment on above: Performed By: #### U A, UMICAO #### [facility] [address] [place] [address] AST enzyme act/vol 13 U/L Normal <32 [facility] Comment on above: Performed By: #### U A, UMICAO #### [facility] [address] [place] [address] Bilirubin Ql (U) 0.42 mg/dL Normal 0.30-1.20 [facility] Comment on above: Performed By: #### U A, UMICAO #### [facility] [address] [place] [address] BUN/CRE Ratio 8 Low 9-20 [facility] Comment on above: Performed By: #### U A, UMICAO #### [facility] [address] [place] [address] Calcium mass conc 8.9 mg/dL Normal 8.6-10.4 [facility] Comment on above: Performed By: #### U A, UMICAO #### [facility] [address] [place] [address] Chloride molar conc 102 mmol/L Normal 98-107 [facility] Comment on above: Performed By: #### U A, UMICAO #### [facility] [address] [place] [address] CO2 molar conc 25 mmol/L Normal 20-31 [facility] Comment on above: Performed By: #### U A, UMICAO #### [facility] [address] [place] [address] Creatinine mass conc 0.75 mg/dL Normal 0.50-0.90 [facility] Comment on above: Performed By: #### U A, UMICAO #### [facility] [address] [place] [address] GFR, Amer >60 Normal >60 [facility] Comment on above: Performed By: #### U A, UMICAO #### [facility] [address] [place] [address] GFR,non Amer >60 Normal >60 [facility] Comment on above: Performed By: #### U A, UMICAO #### [facility] [address] [place] [address] Glucose mass conc 124 mg/dL High 70-99 [facility] Comment on above: Performed By: #### U A, UMICAO #### [facility] [address] [place] [address] Potassium molar conc 3.3 mmol/L Low 3.7-5.3 [facility] Comment on above: Performed By: #### U A, UMICAO #### [facility] [address] [place] [address] Protein mass conc 7.4 g/dL Normal 6.4-8.3 [facility] Comment on above: Performed By: #### U A, UMICAO #### [facility] [address] [place] [address] Sodium molar conc 139 mmol/L Normal 135-144 [facility] Comment on above: Performed By: #### U A, UMICAO #### [facility] [address] [place] [address] Urea nitrogen mass conc 6 mg/dL Normal 6-20 [facility] Comment on above: Performed By: #### U A, UMICAO #### [facility] [address] [place] [address] Albumin/Globulin mass ratio NOT REPORTED Normal 1.0-2.5 [facility] Comment on above: Performed By: #### SAMEERA Carcamo #### [facility] [address] [place] [address] Staging: NOT REPORTED Normal [facility] Comment on above: Performed By: #### U SAMEERA Ortiz #### [facility] [address] [place] [address] HCG Screen, Bloodon 09-14-20 18 HCG Qn Negative Normal NEG [facility] Comment on above: Result Comment: Spec imens with hCG levels near the threshold of the test (25 mIU/mL) may give a negative or indeterminate result. In such cases, another test should be performed with a new specimen in 48-72 hours. If early is suspected clinically in this setting, correlation with quantitative serum b-hCG level is suggested. [facility] has confirmed the use of plasma for this test. This has not been cleared or approved by the U.[place]. Food and Drug Administration. The FDA has determined that such clearance is not necessary. Performed By: #### C DP, HCG, LACTIC, ISABEL, CP, LIP #### [facility] [address] [place] [address] Lactic Acidon 09-14-2018 Lactate molar conc 1.9 mmol/L Normal 0.5-2.2 [facility] Comment on above: Performed By: #### C DP, HCG, LACTIC, ISABEL, CP, LIP #### [facility] [address] [place] [address] Lactate molar conc NOT REPORTED Normal 0.7-2.1 [facility] Comment on above: Performed By: #### C DP, HCG, LACTIC, ISABEL, CP, LIP #### [facility] [address] [place] [address] Lipaseon 09-14-2018 Lipase enzyme act/vol 29 U/L Normal 13-60 [facility] Comment on above: Performed By: #### U SAMEERA Ortiz #### [facility] [address] [place] [address] TESTOSTER.FREE-TOTALon 09-14 Testosterone mass conc 6 ng/dL Low 8-48 [facility] Comment on above: Result Comment: [facility]F [facility] AT [facility] Performed By: #### A CBC, CHEM7F, BHCG2 ####Testing performed at [facility] [place] [address] Urinalysis, Routineon 2017 Acetoacetic Acid,Ur Negative Normal NEG [facility] Comment on above: Performed By: #### U A, UMICAO #### [facility] [address] [place] [address] Bilirubin, SemiQt,Ur Negative Normal NEG [facility] Comment on above: Performed By: #### U A, UMICAO #### [facility] [address] [place] [address] Color Nom (U) YELLOW Normal YEL [facility] Comment on above: Performed By: #### U A, UMICAO #### [facility] [address] [place] [address] Comment Normal [facility] Comment on above: Performed By: #### U A, UMICAO #### [facility] [address] [place] [address] Glucose,Semi-qnt,Ur Negative Normal NEG [facility] Comment on above: Performed By: #### U A, UMICAO #### [facility] [address] [place] [address] Hemoglobin, Ur 2+ Abnormal NEG [facility] Comment on above: Performed By: #### U A, UMICAO #### [facility] [address] [place] [address] Leuckocyte Esterase 1+ Abnormal NEG [facility] Comment on above: Performed By: #### U A, UMICAO #### [facility] [address] [place] [address] Nitrite,Ur Negative Normal NEG [facility] Comment on above: Performed By: #### U Angel, KAELYNO #### [facility] [address] [place] [address] PH,Ur 7.0 Normal 5.0-8.0 [facility] Comment on above: Performed By: #### U Angel, KAELYNO #### [facility] [address] [place] [address] Protein mass conc (U) Negative Normal NEG [facility] Comment on above: Performed By: #### Veda Ortiz, KAELYNO #### [facility] [address] [place] [address] Spec. Yarnell,Ur 1.010 Normal 1.005-1.030 [facility] Comment on above: Performed By: #### Veda Ortiz, KAELYNO #### [facility] [address] [place] [address] Turbidity HAZY Abnormal CLEAR [facility] Comment on above: Performed By: #### Veda Ortiz, UMICAO #### [facility] [address] [place] [address] Urobilinogen,Ur Normal Normal NORM [facility] Comment on above: Performed By: #### U Angel, KAELYNO #### [facility] [address] [place] [address] Urinalysis,Microon 8 ----- Normal [facility] Comment on above: Performed By: #### U Angel, UMICAO #### [facility] [address] [place] [address] Bacteria LM.HPF #/area (Urine sed) 1+ Abnormal NONE [facility] Comment on above: Performed By: #### U Angel, KAELYNO #### [facility] [address] [place] [address] Epithelial cells LM.HPF #/area (Urine sed) 5 TO 10 Normal [facility] Comment on above: Performed By: #### U A, UMICAO #### [facility] [address] [place] [place] [address] RBC #/vol (U) 2 TO 5 Normal 0-2 [facility] Comment on above: Performed By: #### U A, UMICAO #### [facility] [address] [place] [address] WBC #/vol (U) 2 TO 5 Normal 0 [facility] Comment on above: Performed By: #### U A, UMICAO #### [facility] [address] [place] [address] Amorphous sediment LM Ql (Urine sed) NOT REPORTED Normal NONE [facility] Comment on above: Performed By: #### U A, UMICAO #### [facility] [address] [place] [address] Casts LM.LPF #/area (Urine sed) NOT REPORTED Normal [facility] Comment on above: Performed By: #### U A, UMICAO #### [facility] [address] [place] [address] Crystals LM Nom (Urine sed) NOT REPORTED Normal NONE [facility] Comment on above: Performed By: #### U A, UMICAO #### [facility] [address] [place] [address] Epithelial, Renal NOT REPORTED Normal 0 [facility] Comment on above: Performed By: #### U A, UMICAO #### [facility] [address] [place] [address] Mucus Strands NOT REPORTED Normal NONE [facility] Comment on above: Performed By: #### U A, UMICAO #### [facility] [address] [place], [place] [id number] Other Observations NOT REPORTED Normal NREQ [facility] Comment on above: Performed By: #### U A, SAMEERA #### [facility] [address] [place], [place] [id number] Trichomonas NOT REPORTED Normal NONE [facility] Comment on above: Performed By: #### U A, SAMEERA #### [facility] [address] [place] [address] Yeast LM Ql (Urine sed) NOT REPORTED Normal NONE [facility] Comment on above: Performed By: #### U SAMEERA Ortiz #### [facility] [address] [place] [address] BMP FASTINGon 09-13-2018 Anion gap 3 molar conc 13 mmol/L Normal 8-16 [facility] Comment on above: Performed By: #### A CBC, CHEM7F, BHCG2 ####[place] [address] Calcium mass conc 9.4 mg/dL Normal 8.4-10.2 [facility] Comment on above: Performed By: #### A CBC, CHEM7F, BHCG2 ####[place] [address] Chloride molar conc 104 mmol/L Normal 98-107 [facility] Comment on above: Result Comment: Anna Marie willard note: Triglyceride levels of 600mg/dL or higher may positively bias chloride results by approximately 2.1 mmol Performed By: #### A CBC, CHEM7F, BHCG2 ####[place] [address] CO2 molar conc 24 mmol/L Normal 22-30 [facility] Comment on above: Performed By: #### A CBC, CHEM7F, BHCG2 ####Testing performed at [place] [id number] Creatinine mass conc 0.8 mg/dL Normal 0.7-1.2 [facility] Comment on above: Performed By: #### A CBC, CHEM7F, BHCG2 ####[place] [address] EST. GFR, >60 Normal [facility] Comment on above: Performed By: #### A CBC, CHEM7F, BHCG2 ####[place] [address] EST. GFR,Non >60 Normal [facility] Comment on above: Performed By: #### A CBC, CHEM7F, BHCG2 ####[place] [address] GFR/1.73 sq M predicted among non-blacks MDRD vol rate/area (S/P/Bld) Average GFR for 20-29 years old = 116. Normal [facility] Comment on above: Result Comment: Support Coordinator frantz Kidney disease, GFR = <60.Kidney failure, GFR = <15.The GFR estimate is not adjusted for extreme body surface area or acute process, nor has it been validated for women or ethnic groups other than and .Testing performed at [place] [address] Performed By: #### A CBC, CHEM7F, BHCG2 ####[place] [address] Glucose mass conc 119 mg/dL High 70-100 [facility] Comment on above: Result Comment: NORM AL <100 mg/dLPREDIABETES 101-126 mg/dLDIABETES 126 mg/dL or higher Performed By: #### A CBC, CHEM7F, BHCG2 ####[place] [address] Potassium molar conc 3.4 mmol/L Low 3.5-5.1 [facility] Comment on above: Performed By: #### A CBC, CHEM7F, BHCG2 ####[place] [address] Sodium molar conc 141 mmol/L Normal 137-145 [facility] Comment on above: Performed By: #### A CBC, CHEM7F, BHCG2 ####[place] [address] Urea nitrogen mass conc (Bld) 4 mg/dL Low 7-20 [facility] Comment on above: Performed By: #### A CBC, CHEM7F, BHCG2 ####[place] [address] CBCon 09-13-2018 ABSOLUTE BAS 0.0 X10 Normal [facility] Comment on above: Result Comment: Test ing performed at [place] [address] Performed By: #### A CBC, CHEM7F, BHCG2 ####[place] [address] ABSOLUTE EOS 0.10 X10 Normal [facility] Comment on above: Performed By: #### A CBC, CHEM7F, BHCG2 ####[place] [address] ABSOLUTE NEUTROPHIL COUNT 7.1 x10 High 1.0-7.0 [facility] Comment on above: Performed By: #### A CBC, CHEM7F, BHCG2 ####[place] [address] Basophils/100 WBC Auto (Bld) 0.3 % Normal 0.0-2.0 [facility] Comment on above: Performed By: #### A CBC, CHEM7F, BHCG2 ####[place] [address] DTYPE AUTO DIFF Normal [facility] Comment on above: Performed By: #### A CBC, CHEM7F, BHCG2 ####[place] [address] Eosinophils/100 WBC Auto (Bld) 0.6 % Normal 0.0-11.0 [facility] Comment on above: Performed By: #### A CBC, CHEM7F, BHCG2 ####[place] [address] Lymphocytes Auto #/vol (Bld) 1.80 X10 Normal [facility] Comment on above: Performed By: #### A CBC, CHEM7F, BHCG2 ####[place] [address] Lymphocytes/100 WBC Auto (Bld) 18.9 % Low 20.0-55.0 [facility] Comment on above: Performed By: #### A CBC, CHEM7F, BHCG2 ####[place] [address] Monocytes Auto #/vol (Bld) 0.3 X10 Normal [facility] Comment on above: Performed By: #### A CBC, CHEM7F, BHCG2 ####[place] [address] Monocytes/100 WBC Auto (Bld) 3.7 % Normal 0.0-10.0 [facility] Comment on above: Performed By: #### A CBC, CHEM7F, BHCG2 ####[place] [address] Neutrophils/100 WBC Auto (Bld) 76.5 % High 37.0-75.0 [facility] Comment on above: Performed By: #### A CBC, CHEM7F, BHCG2 ####Testing performed at [place] [id number] Erythrocyte distribution width Auto Ratio (RBC) 16.8 % High 11.5-14.5 [facility] Comment on above: Performed By: #### A CBC, CHEM7F, BHCG2 ####Testing performed at [place] [id number] Hematocrit Auto Volume Fraction (Bld) 34.3 % Low 36.0-48.0 [facility] Comment on above: Performed By: #### A CBC, CHEM7F, BHCG2 ####[place] [address] Hemoglobin mass conc (Bld) 10.8 g/dL Low 12.0-16.0 [facility] Comment on above: Performed By: #### A CBC, CHEM7F, BHCG2 ####[place] [address] MCH Auto Entitic mass (RBC) 24.5 pg Low 26.0-35.0 [facility] Comment on above: Performed By: #### A CBC, CHEM7F, BHCG2 ####[place] [address] MCHC Auto mass conc (RBC) 31.6 g/dL Normal 27.0-37.0 [facility] Comment on above: Performed By: #### A CBC, CHEM7F, BHCG2 ####[place] [address] MCV Auto Entitic volume (RBC) 77.5 fL Low 80.0-100.0 [facility] Comment on above: Performed By: #### A CBC, CHEM7F, BHCG2 ####[place] [address] Platelet mean volume Auto Entitic volume (Bld) 7.0 fL Low 7.4-11.0 [facility] Comment on above: Result Comment: Test ing performed at [place] [address] Performed By: #### A CBC, CHEM7F, BHCG2 ####[place] [address] Platelets Auto #/vol (Bld) 550 /cmm High 130.0-400.0 [facility] Comment on above: Performed By: #### A CBC, CHEM7F, BHCG2 ####[place] [address] RBC Auto #/vol (Bld) 4.42 /cmm Normal 4.0-5.4 [facility] Comment on above: Performed By: #### A CBC, CHEM7F, BHCG2 ####[place] [address] WBC Auto #/vol (Bld) 9.4 /cmm Normal 3.6-11.0 [facility] Comment on above: Performed By: #### A CBC, CHEM7F, BHCG2 ####[place] [address] GENITAL CULTUREon 09-13-2018 GENITAL CULTURE SPECIMEN DESCRIPTION [...] Result Note: Testing performed at [place] [address] *REPORT STATUS 09/15/2018 * Result Note: FINAL * Normal [facility] Comment on above: Performed By: #### G ENC ####[place] [address] HEMOGLOBIN A1Con 09-13-2018 Glucose mass conc 117 mg/dL Normal [facility] Comment on above: Result Comment: Test ing performed at [place] [address] Performed By: #### A CBC, CHEM7F, BHCG2 ####[place] [address] Hemoglobin A1c/Hemoglobin.total mass fraction (Bld) 5.7 % Normal 0-6 [facility] Comment on above: Result Comment: NORM AL <5.7%PREDIABETES 5.7-6.4%DIABETES 6.5% OR HIGHER Performed By: #### A CBC, CHEM7F, BHCG2 ####[place] [address] URINE CULTUREon 09-13-2018 Bacteria identified Cx Nom (U) SPECIMEN DESCRIPTION URINE CLEAN CATCHUA DIPSTICK NITRITE NEGATIVE * Result Note: LEUKOCYTE POSITIVE *CULTURE MULTIPLE SPECIES PRESENT;PROBABLE CONTAMINATION. SUGGEST REPEAT SPECIMEN. * Result Note: Testing performed at [place] [address] *REPORT STATUS 09/15/2018 * Result Note: FINAL * Normal [facility] Comment on above: Performed By: #### A CBC, CHEM7F, BHCG2 ####Testing performed at [address] [address] URINE MACROSCOPICon 09-13-20 18 Bilirubin Ql (U) Negative Normal NEGATIVE [facility] Comment on above: Performed By: #### A CBC, CHEM7F, BHCG2 ####Testing performed at [place] [id number] Clarity Nom (U) CLEAR Normal CLEAR [facility] Comment on above: Performed By: #### A CBC, CHEM7F, BHCG2 ####Testing performed at [place] [id number] Color Nom (U) YELLOW Normal YELLOW [facility] Comment on above: Performed By: #### A CBC, CHEM7F, BHCG2 ####Testing performed at [address] [address] Glucose Ql (U) Negative Normal NEGATIVE [facility] Comment on above: Performed By: #### A CBC, CHEM7F, BHCG2 ####Testing performed at [place] [id number] pH Test strip (U) 7.5 [pH] High 5.0-7.0 [facility] Comment on above: Performed By: #### A CBC, CHEM7F, BHCG2 ####Testing performed at [address] [address] URINE HEMOGLOBIN MODERATE Abnormal NEGATIVE [facility] Comment on above: Performed By: #### A CBC, CHEM7F, BHCG2 ####Testing performed at [address] [address] URINE KETONE Negative Normal NEGATIVE [facility] Comment on above: Performed By: #### A CBC, CHEM7F, BHCG2 ####[place] [address] URINE LEUKOTEST TRACE Abnormal NEGATIVE [facility] Comment on above: Result Comment: Test ing performed at [place] [address] Performed By: #### A CBC, CHEM7F, BHCG2 ####[place] [address] URINE NITRATES Negative Normal NEGATIVE [facility] Comment on above: Performed By: #### A CBC, CHEM7F, BHCG2 ####[place] [address] URINE SPEC GRAVITY 1.015 Normal 1.010-1.025 [facility] Comment on above: Performed By: #### A CBC, CHEM7F, BHCG2 ####[place] [address] URINE TOTAL PROTEIN Negative Normal NEGATIVE [facility] Comment on above: Performed By: #### A CBC, CHEM7F, BHCG2 ####[place] [address] Urobilinogen Test strip Qn (U) 0.2 mg/dl Normal 0.2-1.0 [facility] Comment on above: Performed By: #### A CBC, CHEM7F, BHCG2 ####[place] [address] URINE MICROSCOPICon 09-13-20 18 BACTERIA TRACE Abnormal NEGATIVE [facility] Comment on above: Performed By: #### A CBC, CHEM7F, BHCG2 ####[place] [address] CASTS NONE Normal NONE [facility] Comment on above: Performed By: #### A CBC, CHEM7F, BHCG2 ####[place] [address] CRYSTAL NONE Normal NONE [facility] Comment on above: Performed By: #### A CBC, CHEM7F, BHCG2 ####[place] [address] EPITHELIAL CELLS 1 TO 5 Normal [facility] Comment on above: Performed By: #### A CBC, CHEM7F, BHCG2 ####[place] [address] MUCUS TRACE Abnormal NEGATIVE [facility] Comment on above: Performed By: #### A CBC, CHEM7F, BHCG2 ####[place] [address] RBC Test strip #/vol (U) 5 TO 10 Normal NEGATIVE [facility] Comment on above: Performed By: #### A CBC, CHEM7F, BHCG2 ####[place] [address] URINE COMMENT PHYSICIAN REQUESTED CULTURE Normal [facility] Comment on above: Result Comment: Test ing performed at [place] [address] Performed By: #### A CBC, CHEM7F, BHCG2 ####[place] [address] URINE WBC'S 1 TO 5 Normal NEGATIVE [facility] Comment on above: Performed By: #### A CBC, CHEM7F, BHCG2 ####[place] [address] XR CHEST PA/APon 09-06-2018 XR CHEST PA/AP [...] and possible infiltrate within the right lung base.[email or web address] ID: [id number] by: EHSAN SAMUEL on SunSep 06, 2018 10:44:43 AM EDTTranscribed by: SHALOM LOPEZ on SunSep 06, 2018 11:09:51 AM EDTFinalized by: EHSAN SAMUEL on SunSep 06, 2018 11:25:32 AM EDT [facility] Comment on above: Order Comment: Reaso n [...] with possible developing infiltrate. Invalid Interpretation Code [employer] Cardiomegaly and mod erate pulmonary vascular congestion. Atelectatic changes and possible infiltrate within the right lung base. Cancer [email or web address] Workstation ID: [id number] Invalid Interpretation Code [employer] Interface, Rad In Fu ji Speechq - [...] possible infiltrate within the right lung base. JLL/aw Workstation ID: [id number] Invalid Interpretation Code [facility] CBCon 09-05-2018 Erythrocyte distribution width Auto Entitic volume (RBC) 16.2 % High 11.6 - 14.8 % [facility] Hematocrit Auto Volume Fraction (Bld) 30.9 % Low 36 - 46 % [facility] Hemoglobin mass conc (Bld) 9.3 g/dL Low 12 - 16 g/dL [facility] Interpretation and review of laboratory results Abnormal Invalid Interpretation Code [facility] MCH Auto Entitic mass (RBC) 24.8 pg Low 26 - [address] [facility] MCHC Auto mass conc (RBC) 30.1 g/dL Low 31 - 37 g/dL [facility] MCV Auto Entitic volume (RBC) 82.4 fL Invalid Interpretation Code 80 - [address] [facility] Nucleated RBC #/vol (Bld) 0.00 10*3/uL Invalid Interpretation Code [facility] Nucleated RBC/100 WBC Ratio (Bld) 0.0 % Invalid Interpretation Code [facility] Platelet mean volume Auto Entitic volume (Bld) 11.9 fL Invalid Interpretation Code 9 - 15.[address] [facility] Platelets Auto #/vol (Bld) 102 10*3/uL Low [facility] Comment on above: FEW CLUMPED PLATELET S SEEN RBC Auto #/vol (Bld) 3.75 10*6/uL Low [facility] WBC Auto #/vol (Bld) 4.66 10*3/uL Invalid Interpretation Code [facility] Chem 7on 09-05-2018 Anion gap 3 molar conc 17 mmol/L Invalid Interpretation Code 10 - 20 mmol/L [facility] Chloride molar conc 99 mmol/L Invalid Interpretation Code 98 - 108 mmol/L [facility] Creatinine mass conc 1.02 mg/dL Invalid Interpretation Code 0.4 - 1.1 mg/dL [facility] GFR/1.73 sq M predicted among non-blacks MDRD vol rate/area (S/P/Bld) The eGFR should be used for monitoring renal function only and not for medication dosing. Invalid Interpretation Code [facility] GFR/1.73 sq M.predicted CKD-EPI vol rate/area (S/P/Bld) 75 Invalid Interpretation Code >=60 mL/min/1.[address] [facility] Glucose mass conc 99 mg/dL Invalid Interpretation Code 65 - 99 mg/dL [facility] HCO3 molar conc 24 mmol/L Invalid Interpretation Code 21 - 32 mmol/L [facility] Interpretation and review of laboratory results Abnormal Invalid Interpretation Code [facility] Potassium molar conc 3.5 mmol/L Invalid Interpretation Code 3.5 - 5.1 mmol/L [facility] Sodium molar conc 136 mmol/L Invalid Interpretation Code 135 - 145 mmol/L [facility] Urea nitrogen mass conc 7 mg/dL Low 8 - 25 mg/dL [facility] Urea nitrogen/Creatinine mass ratio 6.9 mg/mg Low [facility] CBCon 09-04-2018 Erythrocyte distribution width Auto Entitic volume (RBC) 16.2 % High 11.6 - 14.8 % [facility] Hematocrit Auto Volume Fraction (Bld) 30.7 % Low 36 - 46 % [facility] Hemoglobin mass conc (Bld) 9.5 g/dL Low 12 - 16 g/dL [facility] Interpretation and review of laboratory results Abnormal Invalid Interpretation Code [facility] MCH Auto Entitic mass (RBC) 25.2 pg Low 26 - [address] [facility] MCHC Auto mass conc (RBC) 30.9 g/dL Low 31 - 37 g/dL [facility] MCV Auto Entitic volume (RBC) 81.4 fL Invalid Interpretation Code 80 - [address] [facility] Nucleated RBC #/vol (Bld) 0.00 10*3/uL Invalid Interpretation Code [facility] Nucleated RBC/100 WBC Ratio (Bld) 0.0 % Invalid Interpretation Code [facility] Platelet mean volume Auto Entitic volume (Bld) 11.2 fL Invalid Interpretation Code 9 - 15.[address] [facility] Platelets Auto #/vol (Bld) 134 10*3/uL Low [facility] RBC Auto #/vol (Bld) 3.77 10*6/uL Low [facility] WBC Auto #/vol (Bld) 5.51 10*3/uL Invalid Interpretation Code [facility] CLOSTRIDIUM DIFFICILE TOXIN PCRon 09-04-2018 C. difficile toxin genes JYOTI+probe Ql (St) Negative Invalid Interpretation Code Toxigenic C.diff NEGATIVE [facility] Epidemiologic Marker [id number] Negative Invalid Interpretation Code [id number] PRESUMPTIVE NEGATIVE [facility] Interpretation and review of laboratory results Normal Invalid Interpretation Code [facility] Comprehensive Metabolic Pane guille 09-04-2018 Albumin mass conc 2.8 g/dL Low 3.2 - 5.2 g/dL [facility] ALP enzyme act/vol 69 U/L Invalid Interpretation Code 40 - 140 U/L [facility] ALT enzyme act/vol 13 U/L Invalid Interpretation Code 0 - 40 U/L [facility] Anion gap 3 molar conc 19 mmol/L Invalid Interpretation Code 10 - 20 mmol/L [facility] AST enzyme act/vol 33 U/L Invalid Interpretation Code 0 - 45 U/L [facility] Bilirubin mass conc 0.4 mg/dL Invalid Interpretation Code 0 - 1.3 mg/dL [facility] Calcium mass conc 8.6 mg/dL Invalid Interpretation Code 8.4 - 10.2 mg/dL [facility] Chloride molar conc 97 mmol/L Low 98 - 108 mmol/L [facility] Creatinine mass conc 1.11 mg/dL High 0.4 - 1 .1 mg/dL [facility] GFR/1.73 sq M predicted among non-blacks MDRD vol rate/area (S/P/Bld) The eGFR should be used for monitoring renal function only and not for medication dosing. Invalid Interpretation Code [facility] GFR/1.73 sq M.predicted CKD-EPI vol rate/area (S/P/Bld) 67 Invalid Interpretation Code >=60 mL/min/1.[address] [facility] Glucose mass conc 99 mg/dL Invalid Interpretation Code 65 - 99 mg/dL [facility] HCO3 molar conc 20 mmol/L Low 21 - 32 mmol/L [facility] Interpretation and review of laboratory results Abnormal Invalid Interpretation Code [facility] Potassium molar conc 3.8 mmol/L Invalid Interpretation Code 3.5 - 5.1 mmol/L [facility] Protein mass conc 6.9 g/dL Invalid Interpretation Code 6 - 8 g/dL [facility] Sodium molar conc 132 mmol/L Low 135 - 145 mmol/L [facility] Urea nitrogen mass conc 8 mg/dL Invalid Interpretation Code 8 - 25 mg/dL [facility] Urea nitrogen/Creatinine mass ratio 7.2 mg/mg Low [facility] BLOOD GAS, VBG WITH FULL GONZALEZ Michael 09-03-2018 Base excess Calculated molar conc (BldV) -1.4 Invalid Interpretation Code [facility] Calcium.ionized mass conc 4.5 mg/dL Invalid Interpretation Code 4.5 - 5.3 mg/dL [facility] Carboxyhemoglobin/Hem oglobin.total mass fraction (BldA) 1.2 Invalid Interpretation Code [facility] Comment on above: Reference Ranges: Fidelia hogan Non-smokers:<1.5% Smokers:1.5-5.0% Heavy Smokers:5.0-9.0% CO2 ppres (BldV) [...] 9.9 g/dL Low 12 - 16 g/dL [facility] Interpretation and review of laboratory results Abnormal Invalid Interpretation Code [facility] Lactate molar conc 0.8 mmol/L Invalid Interpretation Code 0.6 - 2 mmol/L [facility] Methemoglobin/Hemoglo bin.total mass fraction (BldA) 0.3 % Invalid Interpretation Code 0 - 2 % [facility] Oxygen ppres (BldV) [address] [facility] Oxygen saturation in Venous blood 92.6 % Invalid Interpretation Code [facility] Oxyhemoglobin/Hemoglo bin.total mass fraction (BldA) 91.3 % Low 94 - 98 % [facility] pH (BldV) 7.[address] [facility] Potassium molar conc 3.7 mmol/L Invalid Interpretation Code 3.5 - 5.1 mmol/L [facility] Sodium molar conc 132 mmol/L Low 135 - 145 mmol/L [facility] Type of Oxygen saturation device Room Air Invalid Interpretation Code [facility] BMPon 09-03-2018 Anion gap 3 molar conc 20 mmol/L Invalid Interpretation Code 10 - 20 mmol/L [facility] Calcium mass conc 9.3 mg/dL Invalid Interpretation Code 8.4 - 10.2 mg/dL [facility] Chloride molar conc 94 mmol/L Low 98 - 108 mmol/L [facility] Creatinine mass conc 1.19 mg/dL High 0.4 - 1 .1 mg/dL [facility] GFR/1.73 sq M predicted among non-blacks MDRD vol rate/area (S/P/Bld) The eGFR should be used for monitoring renal function only and not for medication dosing. Invalid Interpretation Code [facility] GFR/1.73 sq M.predicted CKD-EPI vol rate/area (S/P/Bld) 62 Invalid Interpretation Code >=60 mL/min/1.[address] [facility] Glucose mass conc 142 mg/dL High 65 - 99 mg/dL [facility] HCO3 molar conc 19 mmol/L Low 21 - 32 mmol/L [facility] Interpretation and review of laboratory results Abnormal Invalid Interpretation Code [facility] Potassium molar conc 4.2 mmol/L Invalid Interpretation Code 3.5 - 5.1 mmol/L [facility] Comment on above: Specimen slightly he molyzed Sodium molar conc 129 mmol/L Low 135 - 145 mmol/L [facility] Urea nitrogen mass conc 10 mg/dL Invalid Interpretation Code 8 - 25 mg/dL [facility] Urea nitrogen/Creatinine mass ratio 8.4 mg/mg Low [facility] CBC WITH AUTO DIFFERENTIALon 09-03-2018 Basophils Auto #/vol (Bld) 0.03 10*3/uL Invalid Interpretation Code [facility] Basophils/100 WBC Auto (Bld) 0.2 % Invalid Interpretation Code [facility] Eosinophils Auto #/vol (Bld) 0.00 10*3/uL Invalid Interpretation Code [facility] Eosinophils/100 WBC Auto (Bld) 0.0 % Invalid Interpretation Code [facility] Erythrocyte distribution width Auto Entitic volume (RBC) 15.7 % High 11.6 - 14.8 % [facility] Hematocrit Auto Volume Fraction (Bld) 32.8 % Low 36 - 46 % [facility] Hemoglobin mass conc (Bld) 10.6 g/dL Low 12 - 16 g/dL [facility] Immature granulocytes #/vol (Bld) 0.13 10*3/uL Invalid Interpretation Code [facility] Immature granulocytes/100 WBC (Bld) 1.00 % Invalid Interpretation Code [facility] Comment on above: The IG parameter is the percentage of metamyelocytes, myelocytes, and promyelocytes. Interpretation and review of laboratory results Abnormal Invalid Interpretation Code [facility] Lymphocytes Auto #/vol (Bld) 0.61 10*3/uL Low [facility] Lymphocytes/100 WBC Auto (Bld) 4.8 % Invalid Interpretation Code [facility] MCH Auto Entitic mass (RBC) 25.0 pg Low 26 - 34 pg [facility] MCHC Auto mass conc (RBC) 32.3 g/dL Invalid Interpretation Code 31 - 37 g/dL [facility] MCV Auto Entitic volume (RBC) 77.4 fL Low 80 - 100 fL [facility] Monocytes Auto #/vol (Bld) 1.18 10*3/uL High [facility] Monocytes/100 WBC Auto (Bld) 9.2 % Invalid Interpretation Code [facility] Neutrophils Auto #/vol (Bld) 10.81 10*3/uL High [facility] Neutrophils/100 WBC Auto (Bld) 84.8 % Invalid Interpretation Code [facility] Nucleated RBC #/vol (Bld) 0.00 10*3/uL Invalid Interpretation Code [facility] Nucleated RBC/100 WBC Ratio (Bld) 0.0 % Invalid Interpretation Code [facility] Platelet mean volume Auto Entitic volume (Bld) 10.9 fL Invalid Interpretation Code 9 - 15.[address] [facility] Platelets Auto #/vol (Bld) 179 10*3/uL Invalid Interpretation Code [facility] RBC Auto #/vol (Bld) 4.24 10*6/uL Invalid Interpretation Code [facility] WBC Auto #/vol (Bld) 12.76 10*3/uL High G LAB CT ABDOMEN PELVIS WITH IV CO NTRAST ONLYon 09-03-2018 CT ABDOMEN PELVIS WITH IV CONTRAST ONLY EXAMINATION:CT OF THE ABDOMEN AND PELVIS WITH [id number]/30/2018 11:48 amTECHNIQUE:CT of the abdomen and pelvis [...] in the right hemicolon, suggesting diarrhea.Workstation ID: [id number] by: RANJAN GRANGER on SunSep 03, 2018 11:54:10 AM EDTTranscribed by: RANJAN GRANGER on SunSep 03, 2018 11:54:10 AM EDTFinalized by: RANJAN GRANGER on SunSep 03, 2018 11:54:10 AM EDT [facility] Comment on above: Order Comment: Reaso n [...] nor suspicious osseous lesions. Invalid Interpretation Code [facility] 1. Findings of bilat eral pyelonephritis, appearing more severe on the right. 2. Fluid distention of a few small bowel loops could be related to mild enteritis but could also be physiologic or related to recent ingestion. Of note, there are no findings suggestive of active Crohn disease. 3. Liquid stool in the right hemicolon, suggesting diarrhea. Workstation ID: [id number] Invalid Interpretation Code [facility] Interface, Rad In Fu ji Speechq - [...] diarrhea. Workstation ID: [id number] Invalid Interpretation Code [facility] Hepatic Function Panel (LFT) on 09-03-2018 Albumin mass conc 3.8 g/dL Invalid Interpretation Code 3.2 - 5.2 g/dL [facility] ALP enzyme act/vol 89 U/L Invalid Interpretation Code 40 - 140 U/L [facility] ALT enzyme act/vol 14 U/L Invalid Interpretation Code 0 - 40 U/L [facility] AST enzyme act/vol 41 U/L Invalid Interpretation Code 0 - 45 U/L [facility] Comment on above: Specimen slightly he molyzed Bilirubin mass conc 0.7 mg/dL Invalid Interpretation Code 0 - 1.3 mg/dL [facility] Bilirubin.conjugated mass conc mg/dL Invalid Interpretation Code 0 - 0.4 mg/dL [facility] Interpretation and review of laboratory results Abnormal Invalid Interpretation Code [facility] Protein mass conc 8.2 g/dL High 6 - 8 g/dL [facility] Lactic Acid, Plasmaon 2017 Interpretation and review of laboratory results Normal Invalid Interpretation Code [facility] Lactate molar conc 1.2 mmol/L Invalid Interpretation Code 0.6 - 2 mmol/L [facility] Lipaseon 09-03-2018 Interpretation and review of laboratory results Abnormal Invalid Interpretation Code [facility] Lipase enzyme act/vol 10 U/L Low 15 - 65 U/L [facility] Otheron 09-03-2018 Extra Tube Hold for add-ons. Invalid Interpretation Code [facility] Comment on above: Auto resulted. POC Urine Pregnancyon 2017 HCG ( test) Ql (U) Negative Invalid Interpretation Code Negative [facility] Internal Control Pass Invalid Interpretation Code [facility] Interpretation and review of laboratory results Normal Invalid Interpretation Code [facility] Specific gravity Relative Density (U) Invalid Interpretation Code [facility] URINALYSISon 09-03-2018 Bacteria Auto Ql [...] RBC Auto #/area (Urine sed) 4 High [facility] Specific gravity Automated test strip Relative Density (U) 1.[address] [facility] Urobilinogen Test strip Qn (U) <2.0 Invalid Interpretation Code <2.0 mg/dL [facility] WBC Auto #/area (Urine sed) >[address] [facility] Microscopic examinat ion is performed on all urinalysis samples and only positive findings are reported. The test for blood on the chemical analytic portion of urinalysis may also be positive due to hemoglobinuria and myoglobinuria and if red blood cells are present they are quantified by microscopic examination. Invalid Interpretation Code [facility] Cult,Urineon 09-02-2018 Cult,Urine Specimen Description .URINE Special Requests NOT REPORTED Culture ESCHERICHIA COLI >[id number] CFU/ML Report Status FINAL 09/02/2018 SUSCEPTIBILITY Organism [...] Trimethoprim/Sulfa >=320 RESISTANT Piperacillin/Tazobactam <=4 SUSCEPTIBLE Normal [facility] Comment on above: Performed By: #### U RC #### [facility] [address] [place] [address] [facility] [address] [place] [address] CBC with Diffon 08-31-2018 Abs. Basophil 0.00 k/uL Normal 0.0-0.2 [facility] Comment on above: Performed By: #### C DP, CP #### [facility] [address] [place] [address] Abs.Neutrophil (Seg) 12.70 k/uL High 2.5-7.0 [facility] Comment on above: Performed By: #### C DP, CP #### [facility] [address] [facility] [place] [address] Auto Diff Performed YES Normal [facility] Comment on above: Performed By: #### C DP, CP #### [facility] [address] [place] [address] Basophils/100 WBC (Bld) 0 % Normal 0-2 [facility] Comment on above: Performed By: #### C DP, CP #### [facility] [address] [place] [address] Eosinophils #/vol (Bld) 0.00 10*3/uL Normal 0.0-0.4 [facility] Comment on above: Performed By: #### C DP, CP #### [facility] [address] [facility] [place] [address] Eosinophils/100 WBC (Bld) 0 % Normal 0-5 [facility] Comment on above: Performed By: #### C DP, CP #### [facility] [address] [place] [address] Erythrocyte distribution width Ratio (RBC) 16.8 % High 12.1-15.2 [facility] Comment on above: Performed By: #### C DP, CP #### [facility] [address] [place] [address] Hematocrit Volume Fraction (Bld) 41.0 % Normal 36-46 [facility] Comment on above: Performed By: #### C DP, CP #### [facility] [address] [place] [address] Hemoglobin mass conc (Bld) 13.2 g/dL Normal 12.0-16.0 [facility] Comment on above: Performed By: #### C DP, CP #### [facility] [address] [facility] [place] [address] Lymphocytes #/vol (Bld) 2.10 10*3/uL Normal 1.0-4.8 [facility] Comment on above: Performed By: #### C DP, CP #### [facility] [address] [place] [address] Lymphocytes/100 WBC (Bld) 13 % Low 15-40 [facility] Comment on above: Performed By: #### C DP, CP #### [facility] [address] [place] [address] MCH Entitic mass (RBC) 25.0 pg Low 26-34 [facility] Comment on above: Performed By: #### C DP, CP #### [facility] [address] [place] [address] MCHC mass conc (RBC) 32.2 g/dL Normal 31-37 [facility] Comment on above: Performed By: #### C DP, CP #### [facility] [address] [place] [address] MCV Entitic volume (RBC) 77.7 fL Low 80-100 [facility] Comment on above: Performed By: #### C DP, CP #### [facility] [address] [place] [address] Monocytes #/vol (Bld) 1.20 10*3/uL High 0.0-1.[address] [facility] Comment on above: Performed By: #### C DP, CP #### [facility] [address] [place] [address] Monocytes/100 WBC (Bld) 8 % Normal 4-8 [facility] Comment on above: Performed By: #### C DP, CP #### [facility] [address] [place] [address] Neutrophil (Seg) 79 % High 47-75 [facility] Comment on above: Performed By: #### C DP, CP #### [address] [place] [id number] Platelets #/vol (Bld) 312 10*3/uL Normal 140-450 [facility] Comment on above: Performed By: #### C DP, CP #### [facility] [address] [facility] [place] [address] RBC #/vol (Bld) 5.28 10*6/uL High 4.0-5.2 [facility] Comment on above: Performed By: #### C DP, CP #### [facility] [address] [facility] [place] [address] WBC #/vol (Bld) 16.1 10*3/uL High 3.5-11.0 [facility] Comment on above: Performed By: #### C DP, CP #### [facility] [address] [facility] [place] [address] Abs.Imm.Granulocyte NOT REPORTED Normal 0.00-0.30 [facility] Comment on above: Performed By: #### C DP, CP #### [facility] [address] [place] [address] Immature granulocytes #/vol (Bld) NOT REPORTED Normal 0 [facility] Comment on above: Performed By: #### C DP, CP #### [facility] [address] [facility] [place] [address] NRBC Automated NOT REPORTED Normal [facility] Comment on above: Performed By: #### C DP, CP #### [facility] [address] [place] [address] Platelet mean volume Entitic volume (Bld) NOT REPORTED Normal 6.0-12.0 [facility] Comment on above: Performed By: #### C DP, CP #### [facility] [address] [facility] [place] [address] Platelets #/vol (Bld) NOT REPORTED Normal [facility] Comment on above: Performed By: #### C DP, CP #### [facility] [address] [place], [place] [phone] (914) RBC morphology finding Nom (Bld) NOT REPORTED Normal [facility] Comment on above: Performed By: #### C DP, CP #### [facility] [address] [place] [address] WBC Morphology NOT REPORTED Normal [facility] Comment on above: Performed By: #### C DP, CP #### [facility] [address] [place], [place] [id number] CT ABDOMEN PELVIS WO CONTRAS Ton 08-31-2018 [...] by: Maycol Hedrick MD 08/31/18 Final result [facility] Comp Metabolic Profon 2017 (cont.) Normal [facility] Comment on above: Result Comment: Aver age GFR for 20-29 years old: 116 mL/min/1.73sq m Chronic Kidney Disease: <60 mL/min/1.73sq m Kidney failure: <15 mL/min/1.73sq m eGFR calculated using average adult body mass. Additional eGFR calculator available at: http://www.[employer]/multiple_crcl_2012.htm Performed By: #### C DP, CP #### [facility] [address] [place] [address] Albumin mass conc 4.4 g/dL Normal 3.5-5.2 [facility] Comment on above: Performed By: #### C DP, CP #### [facility] [address] [place] [address] Alkaline Phos 99 U/L Normal 35-104 [facility] Comment on above: Performed By: #### C DP, CP #### [facility] [address] [place] [address] ALT enzyme act/vol 12 U/L Normal 5-33 [facility] Comment on above: Performed By: #### C DP, CP #### [facility] [address] [place] [address] Anion gap molar conc 14 mmol/L Normal 9-17 [facility] Comment on above: Performed By: #### C DP, CP #### [facility] [address] [place] [address] AST enzyme act/vol 12 U/L Normal <32 [facility] Comment on above: Performed By: #### C DP, CP #### [facility] [address] [place] [address] Bilirubin Ql (U) 1.43 mg/dL High 0.30-1.20 [facility] Comment on above: Performed By: #### C DP, CP #### [facility] [address] [place] [address] BUN/CRE Ratio 7 Low 9-20 [facility] Comment on above: Performed By: #### C DP, CP #### [facility] [address] [place] [address] Calcium mass conc 9.9 mg/dL Normal 8.6-10.4 [facility] Comment on above: Performed By: #### C DP, CP #### [facility] [address] [place] [address] Chloride molar conc 99 mmol/L Normal 98-107 [facility] Comment on above: Performed By: #### C DP, CP #### [facility] [address] [place] [address] CO2 molar conc 22 mmol/L Normal 20-31 [facility] Comment on above: Performed By: #### C DP, CP #### [facility] [address] [place] [address] Creatinine mass conc 1.12 mg/dL High 0.50-0.90 [facility] Comment on above: Performed By: #### C DP, CP #### [facility] [address] [place] [address] GFR, Amer >60 Normal >60 [facility] Comment on above: Performed By: #### C DP, CP #### [facility] [address] [place] [address] GFR,non Amer 58 mL/min Low >60 [facility] Comment on above: Performed By: #### C DP, CP #### [facility] [address] [place] [address] Glucose mass conc 155 mg/dL High 70-99 [facility] Comment on above: Performed By: #### C DP, CP #### [facility] [address] [place] [address] Potassium molar conc 3.5 mmol/L Low 3.7-5.3 [facility] Comment on above: Performed By: #### C DP, CP #### [facility] [address] [place] [address] Protein mass conc 8.6 g/dL High 6.4-8.3 [facility] Comment on above: Performed By: #### C DP, CP #### [facility] [address] [place] [address] Sodium molar conc 135 mmol/L Normal 135-144 [facility] Comment on above: Performed By: #### C DP, CP #### [facility] [address] [place] [address] Urea nitrogen mass conc 8 mg/dL Normal 6-20 [facility] Comment on above: Performed By: #### C DP, CP #### [facility] [address] [place] [address] Albumin/Globulin mass ratio NOT REPORTED Normal 1.0-2.5 [facility] Comment on above: Performed By: #### C DP, CP #### [facility] [address] [place] [address] Staging: NOT REPORTED Normal [facility] Comment on above: Performed By: #### C DP, CP #### [facility] [address] [place] [address] Urinalysis, Routineon 2017 Acetoacetic Acid,Ur Negative Normal NEG [facility] Comment on above: Performed By: #### U A, UMICAO #### [facility] [address] [place] [address] Bilirubin, SemiQt,Ur Negative Normal NEG [facility] Comment on above: Performed By: #### U A, UMICAO #### [facility] [address] [place] [address] Color Nom (U) YELLOW Normal YEL [facility] Comment on above: Performed By: #### U A, UMICAO #### [facility] [address] [place] [address] Comment Normal [facility] Comment on above: Performed By: #### U Angel UMICAO #### [facility] [address] [place] [address] Glucose,Semi-qnt,Ur Negative Normal NEG [facility] Comment on above: Performed By: #### GINA CarcamoICAO #### [facility] [address] [place] [address] Hemoglobin, Ur 3+ Abnormal NEG [facility] Comment on above: Performed By: #### GINA CarcamoICAO #### [facility] [address] [place] [address] Leuckocyte Esterase 3+ Abnormal NEG [facility] Comment on above: Performed By: #### GINA CarcamoICAO #### [facility] [address] [place] [address] Nitrite,Ur Negative Normal NEG [facility] Comment on above: Performed By: #### GINA CarcamoICAO #### [facility] [address] [place] [address] PH,Ur 6.0 Normal 5.0-8.0 [facility] Comment on above: Performed By: #### GINA CarcamoICAO #### [facility] [address] [place] [address] Protein mass conc (U) 2+ Abnormal NEG [facility] Comment on above: Performed By: #### Veda Ortiz UMICAO #### [facility] [address] [place] [id number] Spec. Yarnell,Ur 1.020 Normal 1.005-1.030 [facility] Comment on above: Performed By: #### GINA CarcamoICAO #### [facility] [address] [place] [address] Turbidity CLEAR Normal CLEAR [facility] Comment on above: Performed By: #### U SAMEERA Ortiz #### [facility] [address] [place] [address] Urobilinogen,Ur Normal Normal NORM [facility] Comment on above: Performed By: #### U SAMEERA Ortiz #### [facility] [address] [place] [address] Urinalysis,Microon 8 ----- Normal [facility] Comment on above: Performed By: #### U KAELYN OrtizO #### [facility] [address] [place] [address] Bacteria LM.HPF #/area (Urine sed) 1+ Abnormal NONE [facility] Comment on above: Performed By: #### U SAMEERA Ortiz #### [facility] [address] [place] [address] Epithelial cells LM.HPF #/area (Urine sed) 2 TO 5 Normal [facility] Comment on above: Performed By: #### U Angel UMSTEFFO #### [facility] [address] [place] [address] RBC #/vol (U) 50 TO 100 Normal 0-2 [facility] Comment on above: Performed By: #### U KAELYN OrtizO #### [facility] [address] [place] [address] WBC #/vol (U) 20 TO 50 Normal 0 [facility] Comment on above: Performed By: #### U A UMICAO #### [facility] [address] [place] [address] Amorphous sediment LM Ql (Urine sed) NOT REPORTED Normal [facility] Comment on above: Performed By: #### U A, UMICAO #### [facility] [address] [place] [address] Casts LM.LPF #/area (Urine sed) NOT REPORTED Normal [facility] Comment on above: Performed By: #### U A, UMICAO #### [facility] [address] [place] [address] Crystals LM Nom (Urine sed) NOT REPORTED Normal NONE [facility] Comment on above: Performed By: #### U A, UMICAO #### [facility] [address] [place] [address] Epithelial, Renal NOT REPORTED Normal 0 [facility] Comment on above: Performed By: #### U A, UMICAO #### [facility] [address] [place] [address] Mucus Strands NOT REPORTED Normal NONE [facility] Comment on above: Performed By: #### U A, UMICAO #### [facility] [address] [place] [address] Other Observations NOT REPORTED Normal NREQ [facility] Comment on above: Performed By: #### U A, UMICAO #### [facility] [address] [place] [address] Trichomonas NOT REPORTED Normal NONE [facility] Comment on above: Performed By: #### U A, UMICAO #### [facility] [address] [place] [address] Yeast LM Ql (Urine sed) NOT REPORTED Normal NONE [facility] Comment on above: Performed By: #### U A, UMICAO #### [facility] [address] [place] [address] Alcohol, Medicalon 8 Ethanol mass conc Negative Normal [facility] Comment on above: Performed By: #### A LC, HCGQL ####Unless otherwise noted, all testing performed by [address] [id number]: [id number] Director: Geronimo Ibrahim M.D. Drugs of Abuse, Urineon 10-0 Amphetamines,Ur None Detected Normal None Detected [facility] Comment on above: Performed By: #### D RUGSCRU ####Unless otherwise noted, all testing performed by [place] [id number]: [id number] Director: Geronimo Ibrahim M.D. Barbiturates,Ur None Detected Normal None Detected [facility] Comment on above: Performed By: #### D RUGSCRU ####Unless otherwise noted, all testing performed by [place] [phone]: [id number] Director: Geronimo Ibrahim M.D. Benzodiazepine,Ur None Detected Normal None Detected [facility] Comment on above: Performed By: #### D RUGSCRU ####Unless otherwise noted, all testing performed by [address] [id number]: [id number] Director: Geronimo Ibrahim M.D. Cannabinoids,Ur Positive Abnormal None Detected [facility] Comment on above: Performed By: #### D RUGSCRU ####Unless otherwise noted, all testing performed by [place] [phone]: [id number] Director: Geronimo Ibrahim M.D. Cocaine,Ur None Detected Normal None Detected [facility] Comment on above: Performed By: #### D RUGSCRU ####Unless otherwise noted, all testing performed by [place] [phone]: [id number] Director: Geronimo Ibrahim M.D. DOA Cutoffs See comment. Normal [facility] Comment on above: Result Comment: Drug s of Abuse, Urine Presumptive Positive Cutoff Concentrations.Amphetamine/Methamphetamine: 1000 ng/mlBarbiturates: 200 ng/mlBenzodiazepines and metabolities: 200 ng/mlCannabinoids: 50 ng/mlCocaine/Benzoylecgonine: 300 ng/mlMethadone:300 ng/mlOpiates: 300 ng/mlOxycodone/Oxymorphone: 100 ng/ml Performed By: #### D RUGSCRU ####Unless otherwise noted, all testing performed by [address]CLIA: [id number] Director: Geronimo Ibrahim M.D. Methadone,Ur None Detected Normal None Detected [facility] Comment on above: Performed By: #### D RUGSCRU ####Unless otherwise noted, all testing performed by [address] [id number]: [id number] Director: Geronimo Ibrahim M.D. Opiates,Ur None Detected Normal None Detected [facility] Comment on above: Performed By: #### D RUGSCRU ####Unless otherwise noted, all testing performed by [address] [id number]: [id number] Director: Geronimo Ibrahim M.D. Oxycodone, Urine None Detected Normal None Detected [facility] Comment on above: Result Comment: THES E DRUGS OF ABUSE TESTS ARE PROVIDED A MEDICAL SCREENING ONLY.POSITIVE RESULTS ARENOT CONFIRMED BY GCMS Performed By: #### D RUGSCRU ####Unless otherwise noted, all testing performed by [address] [id number]: [id number] Director: Geronimo Ibrahim M.D. HCG, Qualitativeon 8 HCG, Qualitative Negative Normal [facility] Comment on above: Result Comment: Nega tive: The result is less than or equal to 5 mIU/mL of HCG. Performed By: #### A LC, HCGQL ####Unless otherwise noted, all testing performed by [address] [id number]: [id number] Director: Geronimo Ibrahim M.D. CBCon 07-31-2018 ABSOLUTE BAS 0.1 X10 Normal [facility] Comment on above: Result Comment: Test ing performed at [place] [address] Performed By: #### A CBC, CHEM7F, BHCG2 ####[place] [address] ABSOLUTE EOS 0.10 X10 Normal [facility] Comment on above: Performed By: #### A CBC, CHEM7F, BHCG2 ####[place] [address] ABSOLUTE NEUTROPHIL COUNT 5.3 x10 Normal 1.0-7.0 [facility] Comment on above: Performed By: #### A CBC, CHEM7F, BHCG2 ####[place] [address] Basophils/100 WBC Auto (Bld) 0.7 % Normal 0.0-2.0 [facility] Comment on above: Performed By: #### A CBC, CHEM7F, BHCG2 ####Testing performed at [place] [id number] DTYPE AUTO DIFF Normal [facility] Comment on above: Performed By: #### A CBC, CHEM7F, BHCG2 ####Testing performed at [address] [address] Eosinophils/100 WBC Auto (Bld) 1.4 % Normal 0.0-11.0 [facility] Comment on above: Performed By: #### A CBC, CHEM7F, BHCG2 ####Testing performed at [address] [address] Lymphocytes Auto #/vol (Bld) 1.70 X10 Normal [facility] Comment on above: Performed By: #### A CBC, CHEM7F, BHCG2 ####Testing performed at [address] [address] Lymphocytes/100 WBC Auto (Bld) 21.8 % Normal 20.0-55.0 [facility] Comment on above: Performed By: #### A CBC, CHEM7F, BHCG2 ####Testing performed at [place] [id number] Monocytes Auto #/vol (Bld) 0.4 X10 Normal [facility] Comment on above: Performed By: #### A CBC, CHEM7F, BHCG2 ####Testing performed at [address] [address] Monocytes/100 WBC Auto (Bld) 5.8 % Normal 0.0-10.0 [facility] Comment on above: Performed By: #### A CBC, CHEM7F, BHCG2 ####Testing performed at [address] [address] Neutrophils/100 WBC Auto (Bld) 70.3 % Normal 37.0-75.0 [facility] Comment on above: Performed By: #### A CBC, CHEM7F, BHCG2 ####Testing performed at [address] [address] Erythrocyte distribution width Auto Ratio (RBC) 15.6 % High 11.5-14.5 [facility] Comment on above: Performed By: #### A CBC, CHEM7F, BHCG2 ####[place] [address] Hematocrit Auto Volume Fraction (Bld) 39.8 % Normal 36.0-48.0 [facility] Comment on above: Performed By: #### A CBC, CHEM7F, BHCG2 ####[place] [address] Hemoglobin mass conc (Bld) 13.3 g/dL Normal 12.0-16.0 [facility] Comment on above: Performed By: #### A CBC, CHEM7F, BHCG2 ####[place] [address] MCH Auto Entitic mass (RBC) 25.3 pg Low 26.0-35.0 [facility] Comment on above: Performed By: #### A CBC, CHEM7F, BHCG2 ####[place] [address] MCHC Auto mass conc (RBC) 33.4 g/dL Normal 27.0-37.0 [facility] Comment on above: Performed By: #### A CBC, CHEM7F, BHCG2 ####[place] [address] MCV Auto Entitic volume (RBC) 75.8 fL Low 80.0-100.0 [facility] Comment on above: Performed By: #### A CBC, CHEM7F, BHCG2 ####[place] [address] Platelet mean volume Auto Entitic volume (Bld) 8.2 fL Normal 7.4-11.0 [facility] Comment on above: Result Comment: Test ing performed at [place] [address] Performed By: #### A CBC, CHEM7F, BHCG2 ####[place] [address] Platelets Auto #/vol (Bld) 263 /cmm Normal 130.0-400.0 [facility] Comment on above: Performed By: #### A CBC, CHEM7F, BHCG2 ####[place] [address] RBC Auto #/vol (Bld) 5.25 /cmm Normal 4.0-5.4 [facility] Comment on above: Performed By: #### A CBC, CHEM7F, BHCG2 ####[place] [address] WBC Auto #/vol (Bld) 7.6 /cmm Normal 3.6-11.0 [facility] Comment on above: Performed By: #### A CBC, CHEM7F, BHCG2 ####[place] [address] CHEM 7 FASTINGon 07-31-2018 Chloride molar conc 104 mmol/L Normal 98-107 [facility] Comment on above: Performed By: #### A CBC, CHEM7F, BHCG2 ####[place] [address] CO2 molar conc 23 mmol/L Normal 22-30 [facility] Comment on above: Performed By: #### A CBC, CHEM7F, BHCG2 ####[place] [address] Creatinine mass conc 0.8 mg/dL Normal 0.7-1.2 [facility] Comment on above: Performed By: #### A CBC, CHEM7F, BHCG2 ####[place] [address] EST. GFR, >60 Normal [facility] Comment on above: Performed By: #### A CBC, CHEM7F, BHCG2 ####[place] [address] EST. GFR,Non >60 Normal [facility] Comment on above: Performed By: #### A CBC, CHEM7F, BHCG2 ####[place] [address] GFR/1.73 sq M predicted among non-blacks MDRD vol rate/area (S/P/Bld) Average GFR for 20-29 years old = 116. Normal [facility] Comment on above: Result Comment: Support Coordinator frantz Kidney disease, GFR = <60.Kidney failure, GFR = <15.The GFR estimate is not adjusted for extreme body surface area or acute process, nor has it been validated for women or ethnic groups other than and .Testing performed at [place] [address] Performed By: #### A CBC, CHEM7F, BHCG2 ####[place] [address] Glucose mass conc 99 mg/dL Normal 70-100 [facility] Comment on above: Result Comment: NORM AL <100 mg/dLPREDIABETES 101-126 mg/dLDIABETES 126 mg/dL or higher Performed By: #### A CBC, CHEM7F, BHCG2 ####[place] [address] Potassium molar conc 4.1 mmol/L Normal 3.5-5.1 [facility] Comment on above: Performed By: #### A CBC, CHEM7F, BHCG2 ####[place] [address] Sodium molar conc 139 mmol/L Normal 137-145 [facility] Comment on above: Performed By: #### A CBC, CHEM7F, BHCG2 ####[place] [address] Urea nitrogen mass conc (Bld) 8 mg/dL Normal 7-20 [facility] Comment on above: Performed By: #### A CBC, CHEM7F, BHCG2 ####[place] [address] CT ABDOMEN/PELVIS WITHOUT CO NTRASTon 07-31-2018 CT [...] seen to account for the symptoms. Normal [facility] ESRon 07-31-2018 ESR Velocity (Bld) 79 mm/h High 0-15 [facility] Comment on above: Result Comment: Test ing performed at [place] [address] Performed By: #### A CBC, CHEM7F, BHCG2 ####[place] [address] LACTIC ACIDon 07-31-2018 Lactate molar conc 1.2 mmol/L Normal 0.7-2.0 [facility] Comment on above: Result Comment: Test ing performed at [place] [address] Performed By: #### A CBC, CHEM7F, BHCG2 ####[place] [address] LIPASE,SERUMon 07-31-2018 LIPASE,SERUM 50 U/L Normal 23-300 [facility] Comment on above: Result Comment: Test ing performed at [place] [address] Performed By: #### A CBC, CHEM7F, BHCG2 ####[place] [address] LIVER PANELon 07-31-2018 Albumin mass conc 4.3 g/dL Normal 2.9-5.3 [facility] Comment on above: Performed By: #### A CBC, CHEM7F, BHCG2 ####[place] [address] ALP enzyme act/vol 98 U/L Normal 38-126 [facility] Comment on above: Performed By: #### A CBC, CHEM7F, BHCG2 ####[place] [address] ALT enzyme act/vol 23 U/L Normal 9-52 [facility] Comment on above: Result Comment: Test ing performed at [place] [address] Performed By: #### A CBC, CHEM7F, BHCG2 ####[place] [address] AST enzyme act/vol 19 U/L Normal 14-36 [facility] Comment on above: Performed By: #### A CBC, CHEM7F, BHCG2 ####[place] [address] Bilirubin mass conc 1.4 mg/dL High 0.2-1.3 [facility] Comment on above: Performed By: #### A CBC, CHEM7F, BHCG2 ####[place] [address] Bilirubin.direct mass conc 0.2 mg/dL Normal 0-0.4 [facility] Comment on above: Performed By: #### A CBC, CHEM7F, BHCG2 ####[place] [address] Protein mass conc 7.5 g/dL Normal 6.3-8.2 [facility] Comment on above: Performed By: #### A CBC, CHEM7F, BHCG2 ####[place] [address] CBCon 07-26-2018 ABSOLUTE BAS 0.1 X10 Normal [facility] Comment on above: Performed By: #### L IPA2, ACBC, CMPF, ESR ####Testing performed at [address] [place] [address] ABSOLUTE EOS 0.10 X10 Normal [facility] Comment on above: Performed By: #### L IPA2, ACBC, CMPF, ESR ####Testing performed at [address] [place] [address] ABSOLUTE NEUTROPHIL COUNT 5.4 x10 Normal 1.0-7.0 [facility] Comment on above: Performed By: #### L IPA2, ACBC, CMPF, ESR ####Testing performed at [address] [address] Basophils/100 WBC Auto (Bld) 0.8 % Normal 0.0-2.0 [facility] Comment on above: Performed By: #### L IPA2, ACBC, CMPF, ESR ####Testing performed at [address] [address] DTYPE AUTO DIFF Normal [facility] Comment on above: Performed By: #### L IPA2, ACBC, CMPF, ESR ####Testing performed at [address] [address] Eosinophils/100 WBC Auto (Bld) 1.6 % Normal 0.0-11.0 [facility] Comment on above: Performed By: #### L IPA2, ACBC, CMPF, ESR ####Testing performed at [address] [address] Lymphocytes Auto #/vol (Bld) 2.10 X10 Normal [facility] Comment on above: Performed By: #### L IPA2, ACBC, CMPF, ESR ####Testing performed at [address] [address] Lymphocytes/100 WBC Auto (Bld) 25.8 % Normal 20.0-55.0 [facility] Comment on above: Performed By: #### L IPA2, ACBC, CMPF, ESR ####Testing performed at [address] [address] Monocytes Auto #/vol (Bld) 0.4 X10 Normal [facility] Comment on above: Performed By: #### L IPA2, ACBC, CMPF, ESR ####[place] [address] Monocytes/100 WBC Auto (Bld) 4.8 % Normal 0.0-10.0 [facility] Comment on above: Performed By: #### L IPA2, ACBC, CMPF, ESR ####[place] [address] Neutrophils/100 WBC Auto (Bld) 67.0 % Normal 37.0-75.0 [facility] Comment on above: Performed By: #### L IPA2, ACBC, CMPF, ESR ####[place] [address] Erythrocyte distribution width Auto Ratio (RBC) 15.6 % High 11.5-14.5 [facility] Comment on above: Performed By: #### L IPA2, ACBC, CMPF, ESR ####[place] [address] Hematocrit Auto Volume Fraction (Bld) 38.8 % Normal 36.0-48.0 [facility] Comment on above: Performed By: #### L IPA2, ACBC, CMPF, ESR ####[place] [address] Hemoglobin mass conc (Bld) 13.0 g/dL Normal 12.0-16.0 [facility] Comment on above: Performed By: #### L IPA2, ACBC, CMPF, ESR ####[place] [address] MCH Auto Entitic mass (RBC) 25.6 pg Low 26.0-35.0 [facility] Comment on above: Performed By: #### L IPA2, ACBC, CMPF, ESR ####[place] [address] MCHC Auto mass conc (RBC) 33.5 g/dL Normal 27.0-37.0 [facility] Comment on above: Performed By: #### L IPA2, ACBC, CMPF, ESR ####[place] [address] MCV Auto Entitic volume (RBC) 76.3 fL Low 80.0-100.0 [facility] Comment on above: Performed By: #### L IPA2, ACBC, CMPF, ESR ####[place] [address] Platelet mean volume Auto Entitic volume (Bld) 8.4 fL Normal 7.4-11.0 [facility] Comment on above: Performed By: #### L IPA2, ACBC, CMPF, ESR ####[place] [address] Platelets Auto #/vol (Bld) 268 /cmm Normal 130.0-400.0 [facility] Comment on above: Performed By: #### L IPA2, ACBC, CMPF, ESR ####[place] [address] RBC Auto #/vol (Bld) 5.08 /cmm Normal 4.0-5.4 [facility] Comment on above: Performed By: #### L IPA2, ACBC, CMPF, ESR ####[place] [address] WBC Auto #/vol (Bld) 8.1 /cmm Normal 3.6-11.0 [facility] Comment on above: Performed By: #### L IPA2, ACBC, CMPF, ESR ####[place] [address] CMP FASTINGon 07-26-2018 A:G RATIO 1.0 RATIO Low 1.3-2.2 [facility] Comment on above: Performed By: #### L IPA2, ACBC, CMPF, ESR ####[place] [address] Albumin mass conc 4.3 G/dl Normal 3.5-5.0 [facility] Comment on above: Performed By: #### L IPA2, ACBC, CMPF, ESR ####[place] [address] ALP enzyme act/vol 89 U/L Normal 38-126 [facility] Comment on above: Performed By: #### L IPA2, ACBC, CMPF, ESR ####[place] [address] ALT enzyme act/vol 19 U/L Normal 14-54 [facility] Comment on above: Performed By: #### L IPA2, ACBC, CMPF, ESR ####[place] [address] AST enzyme act/vol 23 U/L Normal 15-41 [facility] Comment on above: Performed By: #### L IPA2, ACBC, CMPF, ESR ####[place] [address] Bilirubin mass conc 0.7 mg/dL Normal 0.2-1.2 [facility] Comment on above: Performed By: #### L IPA2, ACBC, CMPF, ESR ####[place] [address] Creatinine mass conc 0.9 mg/dL Normal 0.52-1.04 [facility] Comment on above: Performed By: #### L IPA2, ACBC, CMPF, ESR ####[place] [address] EST. GFR, >60 Normal [facility] Comment on above: Performed By: #### L IPA2, ACBC, CMPF, ESR ####Testing performed at [place] [id number] EST. GFR,Non >60 Normal [facility] Comment on above: Performed By: #### L IPA2, ACBC, CMPF, ESR ####Testing performed at [place] [id number] GFR/1.73 sq M predicted among non-blacks MDRD vol rate/area (S/P/Bld) Average GFR for 20-29 years old = 116. Normal [facility] Comment on above: Result Comment: Support Coordinator frantz Kidney disease, GFR = <60.Kidney failure, GFR = <15.The GFR estimate is not adjusted for extreme body surface area or acute process, nor has it been validated for women or ethnic groups other than and . Performed By: #### L IPA2, ACBC, CMPF, ESR ####Testing performed at [address] [address] Protein mass conc 8.4 g/dL High 6.3-8.2 [facility] Comment on above: Performed By: #### L IPA2, ACBC, CMPF, ESR ####Testing performed at [address] [address] Urea nitrogen mass conc (Bld) mg/dL Low 7-20 [facility] Comment on above: Performed By: #### L IPA2, ACBC, CMPF, ESR ####Testing performed at [address] [address] Calcium mass conc 9.4 mg/dL Normal 8.4-10.2 [facility] Comment on above: Performed By: #### L IPA2, ACBC, CMPF, ESR ####Testing performed at [address] [address] Chloride molar conc 103 mmol/L Normal 98-107 [facility] Comment on above: Performed By: #### L IPA2, ACBC, CMPF, ESR ####Testing performed at [address] [address] CO2 molar conc 25 mmol/L Normal 22-30 [facility] Comment on above: Performed By: #### L IPA2, ACBC, CMPF, ESR ####Testing performed at [address] [address] Glucose mass conc 124 mg/dL High 70-100 [facility] Comment on above: Result Comment: NORM AL <100 mg/dLPREDIABETES 101-126 mg/dLDIABETES 126 mg/dL or higher Performed By: #### L IPA2, ACBC, CMPF, ESR ####Testing performed at [address] [address] Potassium molar conc 3.1 mmol/L Low 3.5-5.1 [facility] Comment on above: Performed By: #### L IPA2, ACBC, CMPF, ESR ####[place] [address] Sodium molar conc 138 mmol/L Normal 136-145 [facility] Comment on above: Performed By: #### L IPA2, ACBC, CMPF, ESR ####[place] [address] ED NOTEon 07-26-2018 [facility] NOTES Normal [facility] ED PROVIDERon 07-26-2018 [facility] NOTES Normal [facility] ESRon 07-26-2018 ESR Velocity (Bld) 46 mm/h High 0-15 [facility] Comment on above: Performed By: #### L IPA2, ACBC, CMPF, ESR ####[place] [address] LACTIC ACIDon 07-26-2018 Lactate molar conc 2.1 mmol/L Critically high 0.5-2.0 [facility] Comment on above: Result Comment: PLEAngel WILLARD REPEAT INITIAL CRITICAL IN 3 HOURS IF ED OR INPATIENT SEPSIS PATIENTResult called to read back by: SHY DAMIAN 07/26/2018 @ 14:54 by KASSIDY Performed By: #### L ACT ####[place] [address] LIPASE,SERUMon 07-26-2018 LIPASE,SERUM 22 U/L Low 23-300 [facility] Comment on above: Performed By: #### L IPA2, ACBC, CMPF, ESR ####Testing performed at [place] [id number] RAPID TOX SCREEN,URINEon AMPHETAMINE Negative Normal NEGATIVE [facility] Comment on above: Result Comment: <500 ng/ml CUTOFF Performed By: #### R TOX UHCGT ####Testing performed at [place] [id number] BARBITURATES Negative Normal NEGATIVE [facility] Comment on above: Result Comment: <200 ng/ml CUTOFF Performed By: #### R TOX, UHCGT ####Testing performed at [facility] [address] [place] [address] BENZODIAZEPINES Negative Normal NEGATIVE [facility] Comment on above: Result Comment: <150 ng/ml CUTOFF Performed By: #### R TOX, UHCGT ####Testing performed at [address] [place] [address] BUPRENORPHINE Negative Normal NEGATIVE [facility] Comment on above: Result Comment: <10 ng/ml CUTOFF Performed By: #### R TOX, UHCGT ####Testing performed at [address] [place] [address] CANNABINOIDS Positive Abnormal NEGATIVE [facility] Comment on above: Result Comment: <50 ng/ml CUTOFF*Unconfirmed Screening Result* Unconfirmed screening results are to be used only for medical treatment purposes. Performed By: #### R TOX, UHCGT ####Testing performed at [address] [place] [address] COCAINE Negative Normal NEGATIVE [facility] Comment on above: Result Comment: <150 ng/ml CUTOFF Performed By: #### R TOX, UHCGT ####Testing performed at [address] [place] [address] METHADONE Negative Normal NEGATIVE [facility] Comment on above: Result Comment: <200 ng/ml CUTOFF Performed By: #### R TOX, UHCGT ####Testing performed at [address] [place] [address] METHAMPHETAMINE Negative Normal NEGATIVE [facility] Comment on above: Result Comment: <500 ng/ml CUTOFF Performed By: #### R TOX, UHCGT ####Testing performed at [address] [place] [address] OPIATES Negative Normal NEGATIVE [facility] Comment on above: Result Comment: <100 ng/ml CUTOFF Performed By: #### R TOX, UHCGT ####Testing performed at [address] [place] [address] OXYCODONE Negative Normal NEGATIVE [facility] Comment on above: Result Comment: <100 ng/ml CUTOFF Performed By: #### R TOX, UHCGT ####Testing performed at [address] [place] [address] PHENCYCLIDINE Negative Normal NEGATIVE [facility] Comment on above: Result Comment: <25 ng/ml CUTOFF Performed By: #### R TOX, UHCGT ####Testing performed at [address] [address] Protein mass conc Negative Normal NEGATIVE [facility] Comment on above: Result Comment: <300 ng/ml CUTOFF Performed By: #### R TOX, UHCGT ####Testing performed at [address] [address] TRICYCLIC ANTIDEPRESSANTS Negative Normal NEGATIVE [facility] Comment on above: Result Comment: <300 ng/ml CUTOFF Performed By: #### R TOX, UHCGT ####Testing performed at [address] [address] URINE HCG QUALon 07-26-2018 HCG.beta subunit ( test) Ql (U) Negative Normal NEGATIVE [facility] Comment on above: Performed By: #### R TOX, UHCGT ####Testing performed at [address] [address] ACETAMINOPHENon 07-12-2018 Acetaminophen mass conc <10.0 Low 10-30 [facility] ALCOHOLon 07-12-2018 Ethanol mass conc mg/dL Normal 0-10 [facility] Comment on above: Result Comment: INTOXICATION >80 MG/DL FATAL >400 MG/DL Performed By: #### A CBC ####Testing performed at [address] [address] CBCon 07-12-2018 ABSOLUTE BAS 0.1 X10 Normal [facility] Comment on above: Performed By: #### A CBC ####Testing performed at [address] [address] ABSOLUTE EOS 0.20 X10 Normal [facility] Comment on above: Performed By: #### A CBC ####Testing performed at [address] [address] ABSOLUTE NEUTROPHIL COUNT 7.0 x10 Normal 1.0-7.0 [facility] Comment on above: Performed By: #### A CBC ####Testing performed at [address] [address] Basophils/100 WBC (Bld) 0.7 % Normal 0.0-2.0 [facility] Comment on above: Performed By: #### A CBC ####Testing performed at [address] [address] DTYPE AUTO DIFF Normal [facility] Comment on above: Performed By: #### A CBC ####Testing performed at [address] [address] Eosinophils/100 WBC (Bld) 1.5 % Normal 0.0-11.0 [facility] Comment on above: Performed By: #### A CBC ####Testing performed at [address] [address] Lymphocytes #/vol (Bld) 1.90 X10 Normal [facility] Comment on above: Performed By: #### A CBC ####Testing performed at [address] [address] Lymphocytes/100 WBC (Bld) 19.8 % Low 20.0-55.0 [facility] Comment on above: Performed By: #### A CBC ####Testing performed at [address] [address] Monocytes #/vol (Bld) 0.6 X10 Normal [facility] Comment on above: Performed By: #### A CBC ####Testing performed at [address] [address] Monocytes/100 WBC (Bld) 6.2 % Normal 0.0-10.0 [facility] Comment on above: Performed By: #### A CBC ####Testing performed at [address] [address] Neutrophils/100 WBC (Bld) 71.8 % Normal 37.0-75.0 [facility] Comment on above: Performed By: #### A CBC ####Testing performed at [address] [address] Erythrocyte distribution width Ratio (RBC) 15.3 % High 11.5-14.5 [facility] Comment on above: Performed By: #### A CBC ####Testing performed at [address] [address] Hematocrit Volume Fraction (Bld) 40.7 % Normal 36.0-48.0 [facility] Comment on above: Performed By: #### A CBC ####Testing performed at [place] [id number] Hemoglobin mass conc (Bld) 13.3 g/dL Normal 12.0-16.0 [facility] Comment on above: Performed By: #### A CBC ####Testing performed at [place] [id number] MCH Entitic mass (RBC) 24.8 pg Low 26.0-35.0 [facility] Comment on above: Performed By: #### A CBC ####Testing performed at [address] [address] MCHC mass conc (RBC) 32.7 g/dL Normal 27.0-37.0 [facility] Comment on above: Performed By: #### A CBC ####Testing performed at [address] [address] MCV Entitic volume (RBC) 75.7 fL Low 80.0-100.0 [facility] Comment on above: Performed By: #### A CBC ####Testing performed at [address] [address] Platelet mean volume Entitic volume (Bld) 8.3 fL Normal 7.4-11.0 [facility] Comment on above: Performed By: #### A CBC ####Testing performed at [address] [address] Platelets #/vol (Bld) 312 /cmm Normal 130.0-400.0 [facility] Comment on above: Performed By: #### A CBC ####Testing performed at [address] [address] RBC #/vol (Bld) 5.37 /cmm Normal 4.0-5.4 [facility] Comment on above: Performed By: #### A CBC ####Testing performed at [address] [address] WBC #/vol (Bld) 9.8 /cmm Normal 3.6-11.0 [facility] Comment on above: Performed By: #### A CBC ####Testing performed at [address] [address] CHEM 7 FASTINGon 07-12-2018 Chloride molar conc 104 mmol/L Normal 98-107 [facility] Comment on above: Performed By: #### A CBC ####Testing performed at [place] [id number] CO2 molar conc 22 mmol/L Normal 22-30 [facility] Comment on above: Performed By: #### A CBC ####Testing performed at [address] [address] Creatinine mass conc 0.9 mg/dL Normal 0.7-1.2 [facility] Comment on above: Performed By: #### A CBC ####Testing performed at [address] [address] EST. GFR, >60 Normal [facility] Comment on above: Performed By: #### A CBC ####Testing performed at [address] [address] EST. GFR,Non >60 Normal [facility] Comment on above: Performed By: #### A CBC ####Testing performed at [address] [address] GFR/1.73 sq M predicted among non-blacks MDRD vol rate/area (S/P/Bld) Average GFR for 20-29 years old = 116. Normal [facility] Comment on above: Result Comment: Support Coordinator frantz Kidney disease, GFR = <60. Kidney failure, GFR = <15. The GFR estimate is not adjusted for extreme body surface area or acute process, nor has it been validated for women or ethnic groups other than and . Performed By: #### A CBC ####Testing performed at [place] [id number] Glucose mass conc 170 mg/dL High 70-100 [facility] Comment on above: Result Comment: NORMAL <100 mg/dL PREDIABETES 101-126 mg/dL DIABETES 126 mg/dL or higher Performed By: #### A CBC ####Testing performed at [address] [address] Potassium molar conc 3.4 mmol/L Low 3.5-5.1 [facility] Comment on above: Performed By: #### A CBC ####Testing performed at [address] [address] Sodium molar conc 141 mmol/L Normal 137-145 [facility] Comment on above: Performed By: #### A CBC ####Testing performed at [address] [address] Urea nitrogen mass conc 9 mg/dL Normal 7-20 [facility] Comment on above: Performed By: #### A CBC ####Testing performed at [address] [address] LIVER PANELon 07-12-2018 Albumin mass conc 4.7 g/dL Normal 2.9-5.3 [facility] Comment on above: Performed By: #### A CBC ####Testing performed at [address] [address] ALP enzyme act/vol 100 U/L Normal 38-126 [facility] Comment on above: Performed By: #### A CBC ####Testing performed at [address] [address] ALT enzyme act/vol 32 U/L Normal 9-52 [facility] Comment on above: Performed By: #### A CBC ####Testing performed at [address] [address] AST enzyme act/vol 25 U/L Normal 14-36 [facility] Comment on above: Performed By: #### A CBC ####Testing performed at [address] [address] Bilirubin mass conc 1.5 mg/dL High 0.2-1.3 [facility] Comment on above: Performed By: #### A CBC ####Testing performed at [address] [address] Bilirubin.direct mass conc 0.3 mg/dL Normal 0-0.4 [facility] Comment on above: Performed By: #### A CBC ####Testing performed at [address] [address] Protein mass conc 8.4 g/dL High 6.3-8.2 [facility] Comment on above: Performed By: #### A CBC ####Testing performed at [address] [address] PROTIMEon 07-12-2018 INR Coag RelTime (PPP) 1.06 {INR} Normal 0.87-1.13 [facility] Comment on above: Result Comment: 2.0- 3.0 THERAPEUTIC RANGE 2.5-3.5 PROSTHETIC VALVE RANGE Performed By: #### A CBC ####Testing performed at [address] [address] Prothrombin time (PT) Coag time (PPP) 11.0 s Normal 10.0-13.0 [facility] Comment on above: Performed By: #### A CBC ####Testing performed at [facility] [address] [address] RAPID TOX SCREEN,URINEon AMPHETAMINE Negative Normal NEGATIVE [facility] Comment on above: Result Comment: <500 ng/ml CUTOFF Performed By: #### U HCGT ####Testing performed at [address] [place] [address] BARBITURATES Negative Normal NEGATIVE [facility] Comment on above: Result Comment: <200 ng/ml CUTOFF Performed By: #### U HCGT ####Testing performed at [address] [place] [address] Benzodiazepines Ql (U) Negative Normal NEGATIVE [facility] Comment on above: Result Comment: <150 ng/ml CUTOFF Performed By: #### U HCGT ####Testing performed at [address] [address] BUPRENORPHINE Negative Normal NEGATIVE [facility] Comment on above: Result Comment: <10 ng/ml CUTOFF Performed By: #### U HCGT ####Testing performed at [address] [address] Cannabinoids Screen Ql (U) Positive Abnormal NEGATIVE [facility] Comment on above: Result Comment: <50 ng/ml CUTOFF *Unconfirmed Screening Result* Unconfirmed screening results are to be used only for medical treatment purposes. Performed By: #### U HCGT ####Testing performed at [address] [address] Cocaine Ql (U) Negative Normal NEGATIVE [facility] Comment on above: Result Comment: <150 ng/ml CUTOFF Performed By: #### U HCGT ####Testing performed at [address] [address] Methadone Ql (U) Negative Normal NEGATIVE [facility] Comment on above: Result Comment: <200 ng/ml CUTOFF Performed By: #### U HCGT ####Testing performed at [address] [address] METHAMPHETAMINE Negative Normal NEGATIVE [facility] Comment on above: Result Comment: <500 ng/ml CUTOFF Performed By: #### U HCGT ####Testing performed at [address] [address] Opiates Ql (U) Negative Normal NEGATIVE [facility] Comment on above: Result Comment: <100 ng/ml CUTOFF Performed By: #### U HCGT ####Testing performed at [address] [address] OXYCODONE Negative Normal NEGATIVE [facility] Comment on above: Result Comment: <100 ng/ml CUTOFF Performed By: #### U HCGT ####Testing performed at [address] [address] Phencyclidine Ql (U) Negative Normal NEGATIVE [facility] Comment on above: Result Comment: <25 ng/ml CUTOFF Performed By: #### U HCGT ####Testing performed at [address] [address] Protein mass conc (U) Negative Normal NEGATIVE [facility] Comment on above: Result Comment: <300 ng/ml CUTOFF Performed By: #### U HCGT ####Testing performed at [address] [address] Tricyclic antidepressants Screen Ql (U) Negative Normal NEGATIVE [facility] Comment on above: Result Comment: <300 ng/ml CUTOFF Performed By: #### U HCGT ####Testing performed at [address] [address] SALICYLATESon 07-12-2018 SALICYLATES <1.0 Normal 0-20 [facility] TSHon 07-12-2018 Thyrotropin Qn 1.140 uIU/ML Normal 0.46-4.68 [facility] Comment on above: Performed By: #### A CBC ####Testing performed at [address] [address] URINE HCG QUALon 07-12-2018 HCG.beta subunit ( test) Ql (U) Negative Normal [facility] Comment on above: Performed By: #### U HCGT ####Testing performed at [address] [address] CBCon 07-09-2018 ABSOLUTE BAS 0.1 X10 Normal [facility] Comment on above: Result Comment: Test ing performed at [place] [address] Performed By: #### A CBC, CHEM7F, BHCG2 ####[place] [address] ABSOLUTE EOS 0.20 X10 Normal [facility] Comment on above: Performed By: #### A CBC, CHEM7F, BHCG2 ####[place] [address] ABSOLUTE NEUTROPHIL COUNT 5.8 x10 Normal 1.0-7.0 [facility] Comment on above: Performed By: #### A CBC, CHEM7F, BHCG2 ####[place] [address] Basophils/100 WBC Auto (Bld) 0.8 % Normal 0.0-2.0 [facility] Comment on above: Performed By: #### A CBC, CHEM7F, BHCG2 ####[place] [address] DTYPE AUTO DIFF Normal [facility] Comment on above: Performed By: #### A CBC, CHEM7F, BHCG2 ####[place] [address] Eosinophils/100 WBC Auto (Bld) 2.8 % Normal 0.0-11.0 [facility] Comment on above: Performed By: #### A CBC, CHEM7F, BHCG2 ####[place] [address] Lymphocytes Auto #/vol (Bld) 1.50 X10 Normal [facility] Comment on above: Performed By: #### A CBC, CHEM7F, BHCG2 ####[place] [address] Lymphocytes/100 WBC Auto (Bld) 18.7 % Low 20.0-55.0 [facility] Comment on above: Performed By: #### A CBC, CHEM7F, BHCG2 ####[place] [address] Monocytes Auto #/vol (Bld) 0.3 X10 Normal [facility] Comment on above: Performed By: #### A CBC, CHEM7F, BHCG2 ####[place] [address] Monocytes/100 WBC Auto (Bld) 4.1 % Normal 0.0-10.0 [facility] Comment on above: Performed By: #### A CBC, CHEM7F, BHCG2 ####[place] [address] Neutrophils/100 WBC Auto (Bld) 73.6 % Normal 37.0-75.0 [facility] Comment on above: Performed By: #### A CBC, CHEM7F, BHCG2 ####[place] [address] Erythrocyte distribution width Auto Ratio (RBC) 15.0 % High 11.5-14.5 [facility] Comment on above: Performed By: #### A CBC, CHEM7F, BHCG2 ####[place] [address] Hematocrit Auto Volume Fraction (Bld) 37.5 % Normal 36.0-48.0 [facility] Comment on above: Performed By: #### A CBC, CHEM7F, BHCG2 ####[place] [address] Hemoglobin mass conc (Bld) 12.3 g/dL Normal 12.0-16.0 [facility] Comment on above: Performed By: #### A CBC, CHEM7F, BHCG2 ####[place] [address] MCH Auto Entitic mass (RBC) 24.9 pg Low 26.0-35.0 [facility] Comment on above: Performed By: #### A CBC, CHEM7F, BHCG2 ####[place] [address] MCHC Auto mass conc (RBC) 32.7 g/dL Normal 27.0-37.0 [facility] Comment on above: Performed By: #### A CBC, CHEM7F, BHCG2 ####[place] [address] MCV Auto Entitic volume (RBC) 76.1 fL Low 80.0-100.0 [facility] Comment on above: Performed By: #### A CBC, CHEM7F, BHCG2 ####[place] [address] Platelet mean volume Auto Entitic volume (Bld) 8.3 fL Normal 7.4-11.0 [facility] Comment on above: Performed By: #### A CBC, CHEM7F, BHCG2 ####[place] [address] Platelets Auto #/vol (Bld) 262 /cmm Normal 130.0-400.0 [facility] Comment on above: Performed By: #### A CBC, CHEM7F, BHCG2 ####[place] [address] RBC Auto #/vol (Bld) 4.93 /cmm Normal 4.0-5.4 [facility] Comment on above: Performed By: #### A CBC, CHEM7F, BHCG2 ####[place] [address] WBC Auto #/vol (Bld) 7.9 /cmm Normal 3.6-11.0 [facility] Comment on above: Performed By: #### A CBC, CHEM7F, BHCG2 ####[place] [address] CHEM 7 FASTINGon 07-09-2018 Chloride molar conc 105 mmol/L Normal 98-107 [facility] Comment on above: Performed By: #### A CBC, CHEM7F, BHCG2 ####[place] [address] CO2 molar conc 25 mmol/L Normal 22-30 [facility] Comment on above: Performed By: #### A CBC, CHEM7F, BHCG2 ####[place] [address] Creatinine mass conc 0.8 mg/dL Normal 0.7-1.2 [facility] Comment on above: Performed By: #### A CBC, CHEM7F, BHCG2 ####[place] [address] EST. GFR, >60 Normal [facility] Comment on above: Performed By: #### A CBC, CHEM7F, BHCG2 ####[place] [address] EST. GFR,Non >60 Normal [facility] Comment on above: Performed By: #### A CBC, CHEM7F, BHCG2 ####[place] [address] GFR/1.73 sq M predicted among non-blacks MDRD vol rate/area (S/P/Bld) Average GFR for 20-29 years old = 116. Normal [facility] Comment on above: Result Comment: Support Coordinator frantz Kidney disease, GFR = <60.Kidney failure, GFR = <15.The GFR estimate is not adjusted for extreme body surface area or acute process, nor has it been validated for women or ethnic groups other than and .Testing performed at [place] [address] Performed By: #### A CBC, CHEM7F, BHCG2 ####[place] [address] Glucose mass conc 101 mg/dL High 70-100 [facility] Comment on above: Result Comment: NORM AL <100 mg/dLPREDIABETES 101-126 mg/dLDIABETES 126 mg/dL or higher Performed By: #### A CBC, CHEM7F, BHCG2 ####[place] [address] Potassium molar conc 4.1 mmol/L Normal 3.5-5.1 [facility] Comment on above: Performed By: #### A CBC, CHEM7F, BHCG2 ####[place] [address] Sodium molar conc 140 mmol/L Normal 137-145 [facility] Comment on above: Performed By: #### A CBC, CHEM7F, BHCG2 ####[place] [address] Urea nitrogen mass conc (Bld) 8 mg/dL Normal 7-20 [facility] Comment on above: Performed By: #### A CBC, CHEM7F, BHCG2 ####[place] [address] ESRon 07-09-2018 ESR Velocity (Bld) 55 mm/h High 0-15 [facility] Comment on above: Result Comment: Test ing performed at [place] [address] Performed By: #### A CBC, CHEM7F, BHCG2 ####[place] [address] URINE HCG QUALon 07-09-2018 HCG.beta subunit ( test) Ql (U) Negative Normal [facility] Comment on above: Result Comment: Test ing performed at [place] [address] Performed By: #### A CBC, CHEM7F, BHCG2 ####[place] [address] URINE MACROSCOPICon 07-09-20 18 Bilirubin Ql (U) Negative Normal NEGATIVE [facility] Comment on above: Performed By: #### A CBC, CHEM7F, BHCG2 ####Testing performed at [place] [id number] Clarity Nom (U) CLEAR Abnormal CLEAR [facility] Comment on above: Performed By: #### A CBC, CHEM7F, BHCG2 ####Testing performed at [place] [id number] Color Nom (U) YELLOW Normal YELLOW [facility] Comment on above: Performed By: #### A CBC, CHEM7F, BHCG2 ####[place] [address] Glucose Ql (U) Negative Normal NEGATIVE [facility] Comment on above: Performed By: #### A CBC, CHEM7F, BHCG2 ####[place] [address] pH Test strip (U) 6.0 [pH] Normal 5.0-7.0 [facility] Comment on above: Performed By: #### A CBC, CHEM7F, BHCG2 ####Testing performed at [place] [id number] URINE HEMOGLOBIN MODERATE Abnormal NEGATIVE [facility] Comment on above: Performed By: #### A CBC, CHEM7F, BHCG2 ####Testing performed at [place] [id number] URINE KETONE Negative Normal NEGATIVE [facility] Comment on above: Performed By: #### A CBC, CHEM7F, BHCG2 ####Testing performed at [address] [address] URINE LEUKOTEST TRACE Abnormal NEGATIVE [facility] Comment on above: Result Comment: Test ing performed at [place] [address] Performed By: #### A CBC, CHEM7F, BHCG2 ####Testing performed at [place] [id number] URINE NITRATES Negative Normal NEGATIVE [facility] Comment on above: Performed By: #### A CBC, CHEM7F, BHCG2 ####[place] [address] URINE SPEC GRAVITY 1.025 Normal 1.010-1.025 [facility] Comment on above: Performed By: #### A CBC, CHEM7F, BHCG2 ####[place] [address] URINE TOTAL PROTEIN Negative Normal NEGATIVE [facility] Comment on above: Performed By: #### A CBC, CHEM7F, BHCG2 ####[place] [address] Urobilinogen Test strip Qn (U) 0.2 mg/dl Normal 0.2-1.0 [facility] Comment on above: Performed By: #### A CBC, CHEM7F, BHCG2 ####[place] [address] URINE MICROSCOPICon 07-09-20 18 BACTERIA Negative Normal NEGATIVE [facility] Comment on above: Performed By: #### A CBC, CHEM7F, BHCG2 ####[place] [address] CASTS NONE Normal NONE [facility] Comment on above: Performed By: #### A CBC, CHEM7F, BHCG2 ####[place] [address] CRYSTAL NONE Normal [facility] Comment on above: Performed By: #### A CBC, CHEM7F, BHCG2 ####[place] [address] EPITHELIAL CELLS TOO NUMEROUS TO COUNT Normal [facility] Comment on above: Performed By: #### A CBC, CHEM7F, BHCG2 ####[place] [address] MUCUS Negative Normal NEGATIVE [facility] Comment on above: Performed By: #### A CBC, CHEM7F, BHCG2 ####[place] [address] RBC Test strip #/vol (U) Negative Normal NEGATIVE [facility] Comment on above: Performed By: #### A CBC, CHEM7F, BHCG2 ####Testing performed at [place] [id number] URINE COMMENT POSSIBLY CONTAMINATE D SPECIMEN, CULTURE MUST BE ORDERED SEPARATELY IF DEEMED NECESSARY. Normal [facility] Comment on above: Result Comment: Test ing performed at [place] [address] Performed By: #### A CBC, CHEM7F, BHCG2 ####[place] [address] URINE WBC'S 1 TO 5 Normal NEGATIVE [facility] Comment on above: Performed By: #### A CBC, CHEM7F, BHCG2 ####Testing performed at [place] [id number] CBCon 05-19-2018 ABSOLUTE BAS 0.1 X10 Normal [facility] Comment on above: Performed By: #### A CBC ####Testing performed at [address] [address] ABSOLUTE EOS 0.10 X10 Normal [facility] Comment on above: Performed By: #### A CBC ####Testing performed at [address] [address] ABSOLUTE NEUTROPHIL COUNT 8.8 x10 High 1.0-7.0 [facility] Comment on above: Performed By: #### A CBC ####Testing performed at [address] [address] Basophils/100 WBC (Bld) 0.6 % Normal 0.0-2.0 [facility] Comment on above: Performed By: #### A CBC ####Testing performed at [address] [address] DTYPE AUTO DIFF Normal [facility] Comment on above: Performed By: #### A CBC ####Testing performed at [address] [address] Eosinophils/100 WBC (Bld) 0.9 % Normal 0.0-11.0 [facility] Comment on above: Performed By: #### A CBC ####Testing performed at [address] [address] Lymphocytes #/vol (Bld) 2.50 X10 Normal [facility] Comment on above: Performed By: #### A CBC ####Testing performed at [address] [address] Lymphocytes/100 WBC (Bld) 20.2 % Normal 20.0-55.0 [facility] Comment on above: Performed By: #### A CBC ####Testing performed at [address] [address] Monocytes #/vol (Bld) 0.8 X10 Normal [facility] Comment on above: Performed By: #### A CBC ####Testing performed at [address] [address] Monocytes/100 WBC (Bld) 6.8 % Normal 0.0-10.0 [facility] Comment on above: Performed By: #### A CBC ####Testing performed at [address] [address] Neutrophils/100 WBC (Bld) 71.5 % Normal 37.0-75.0 [facility] Comment on above: Performed By: #### A CBC ####Testing performed at [address] [address] Erythrocyte distribution width Ratio (RBC) 16.5 % High 11.5-14.5 [facility] Comment on above: Performed By: #### A CBC ####Testing performed at [address] [address] Hematocrit Volume Fraction (Bld) 35.0 % Low 36.0-48.0 [facility] Comment on above: Performed By: #### A CBC ####[place] [address] Hemoglobin mass conc (Bld) 11.5 g/dL Low 12.0-16.0 [facility] Comment on above: Performed By: #### A CBC ####[place] [address] MCH Entitic mass (RBC) 25.4 pg Low 26.0-35.0 [facility] Comment on above: Performed By: #### A CBC ####[place] [address] MCHC mass conc (RBC) 32.7 g/dL Normal 27.0-37.0 [facility] Comment on above: Performed By: #### A CBC ####[place] [address] MCV Entitic volume (RBC) 77.6 fL Low 80.0-100.0 [facility] Comment on above: Performed By: #### A CBC ####[place] [address] Platelet mean volume Entitic volume (Bld) 7.9 fL Normal 7.4-11.0 [facility] Comment on above: Performed By: #### A CBC ####[place] [address] Platelets #/vol (Bld) 368 /cmm Normal 130.0-400.0 [facility] Comment on above: Performed By: #### A CBC ####[place] [address] RBC #/vol (Bld) 4.51 /cmm Normal 4.0-5.4 [facility] Comment on above: Performed By: #### A CBC ####[place] [address] WBC #/vol (Bld) 12.3 /cmm High 3.6-11.0 [facility] Comment on above: Performed By: #### A CBC ####Testing [facility] [place] [address] CMP FASTINGon 05-19-2018 A:G RATIO 1.2 RATIO Low 1.3-2.2 [facility] Albumin mass conc 4.1 G/dl Normal 3.5-5.0 [facility] ALP enzyme act/vol 124 U/L Normal 38-126 [facility] ALT enzyme act/vol 62 U/L High 9-52 [facility] AST enzyme act/vol 35 U/L Normal 14-36 [facility] Bilirubin mass conc 0.5 mg/dL Normal 0.2-1.3 [facility] Calcium mass conc 9.5 mg/dL Normal 8.4-10.2 [facility] Chloride molar conc 106 mmol/L Normal 98-107 [facility] CO2 molar conc 25 mmol/L Normal 22-30 [facility] Creatinine mass conc 0.9 mg/dL Normal 0.7-1.2 [facility] EST. GFR, >60 Normal [facility] EST. GFR,Non >60 Normal [facility] GFR/1.73 sq M predicted among non-blacks MDRD vol rate/area (S/P/Bld) Average GFR for 20-29 years old = 116. Normal [facility] Comment on above: Result Comment: Support Coordinator frantz Kidney disease, GFR = <60. Kidney failure, GFR = <15. The GFR estimate is not adjusted for extreme body surface area or acute process, nor has it been validated for women or ethnic groups other than and . Glucose mass conc 108 mg/dL High 70-100 [facility] Comment on above: Result Comment: NORMAL <100 mg/dL PREDIABETES 101-126 mg/dL DIABETES 126 mg/dL or higher Potassium molar conc 3.5 mmol/L Normal 3.5-5.1 [facility] Protein mass conc 7.5 g/dL Normal 6.3-8.2 [facility] Sodium molar conc 143 mmol/L Normal 137-145 [facility] Urea nitrogen mass conc 9 mg/dL Normal 7-20 [facility] LIPASE,SERUMon 05-19-2018 LIPASE,SERUM 51 U/L Normal 23-300 [facility] URINE HCG QUALon 05-19-2018 HCG.beta subunit ( test) Ql (U) Negative Normal [facility] URINE MACROSCOPICon 05-19-20 18 Bilirubin Ql (U) Negative Normal NEGATIVE [facility] Clarity Nom (U) CLEAR Normal CLEAR [facility] Color Nom (U) YELLOW Normal YELLOW [facility] Glucose Ql (U) Negative Normal NEGATIVE [facility] pH (U) 6.0 [pH] Normal 5.0-7.0 [facility] Protein mass conc (U) TRACE Abnormal NEGATIVE [facility] URINE HEMOGLOBIN Negative Normal NEGATIVE [facility] URINE KETONE Negative Normal NEGATIVE [facility] URINE LEUKOTEST Negative Normal NEGATIVE [facility] URINE NITRATES Negative Normal NEGATIVE [facility] URINE SPEC GRAVITY >1.030 High 1.010-1.025 [facility] Urobilinogen Qn (U) 0.2 mg/dl Normal 0.2-1.0 [facility] URINE MICROSCOPICon 05-19-20 18 Bacteria LM.HPF #/area (Urine sed) TRACE Abnormal NEGATIVE [facility] Casts LM.LPF #/area (Urine sed) NONE Normal NONE [facility] CRYSTAL OCCASIONAL Abnormal NONE [facility] Comment on above: Result Comment: CA O XALATE CRYSTALS Epithelial cells LM.HPF #/area (Urine sed) 20 TO 30 Normal [facility] Mucus Ql (Urine sed) Negative Normal NEGATIVE [facility] RBC #/vol (U) Negative Normal NEGATIVE [facility] URINE COMMENT CULTURE CRITERIA NOT MET, NO CULTURE PERFORMED. Normal [facility] WBC #/vol (U) Negative Normal NEGATIVE [facility] XR ABDOMEN 1 VIEWon 05-19-20 18 XR ABDOMEN 1 VIEW XR ABDOMEN 1 VIEW HISTORY: Abdominal pain. COMPARISON: CT abdomen/pelvis from October 26, 2017. FINDINGS: Nonobstructive bowel gas pattern. No gross pneumoperitoneum. Osseous structures are intact. Intrauterine device is noted. IMPRESSION: Nonobstructive bowel gas pattern. Normal [facility] ACETAMINOPHENon 04-25-2018 Acetaminophen mass conc <10.0 Low 10-30 [facility] ALCOHOLon 04-25-2018 Ethanol mass conc mg/dL Normal 0-10 [facility] Comment on above: Result Comment: INTOXICATION >80 MG/DL FATAL >400 MG/DL CBCon 04-25-2018 ABSOLUTE BAS 0.1 X10 Normal [facility] ABSOLUTE EOS 0.10 X10 Normal [facility] ABSOLUTE NEUTROPHIL COUNT 6.5 x10 Normal 1.0-7.0 [facility] Basophils/100 WBC (Bld) 0.6 % Normal 0.0-2.0 [facility] DTYPE AUTO DIFF Normal [facility] Eosinophils/100 WBC (Bld) 1.1 % Normal 0.0-11.0 [facility] Lymphocytes #/vol (Bld) 2.00 X10 Normal [facility] Lymphocytes/100 WBC (Bld) 22.0 % Normal 20.0-55.0 [facility] Monocytes #/vol (Bld) 0.4 X10 Normal [facility] Monocytes/100 WBC (Bld) 4.5 % Normal 0.0-10.0 [facility] Neutrophils/100 WBC (Bld) 71.8 % Normal 37.0-75.0 [facility] Erythrocyte distribution width Ratio (RBC) 15.6 % High 11.5-14.5 [facility] Hematocrit Volume Fraction (Bld) 37.2 % Normal 36.0-48.0 [facility] Hemoglobin mass conc (Bld) 12.0 g/dL Normal 12.0-16.0 [facility] MCH Entitic mass (RBC) 25.3 pg Low 26.0-35.0 [facility] MCHC mass conc (RBC) 32.3 g/dL Normal 27.0-37.0 [facility] MCV Entitic volume (RBC) 78.2 fL Low 80.0-100.0 [facility] Platelet mean volume Entitic volume (Bld) 7.8 fL Normal 7.4-11.0 [facility] Platelets #/vol (Bld) 344 /cmm Normal 130.0-400.0 [facility] RBC #/vol (Bld) 4.76 /cmm Normal 4.0-5.4 [facility] WBC #/vol (Bld) 9.1 /cmm Normal 3.6-11.0 [facility] CHEM 7 FASTINGon 04-25-2018 Chloride molar conc 108 mmol/L High 98-107 [facility] CO2 molar conc 21 mmol/L Low 22-30 [facility] Creatinine mass conc 0.8 mg/dL Normal 0.7-1.2 [facility] EST. GFR, >60 Normal [facility] EST. GFR,Non >60 Normal [facility] GFR/1.73 sq M predicted among non-blacks MDRD vol rate/area (S/P/Bld) Average GFR for 20-29 years old = 116. Normal [facility] Comment on above: Result Comment: Support Coordinator frantz Kidney disease, GFR = <60. Kidney failure, GFR = <15. The GFR estimate is not adjusted for extreme body surface area or acute process, nor has it been validated for women or ethnic groups other than and . Glucose mass conc 98 mg/dL Normal 70-100 [facility] Comment on above: Result Comment: NORMAL <100 mg/dL PREDIABETES 101-126 mg/dL DIABETES 126 mg/dL or higher Potassium molar conc 3.8 mmol/L Normal 3.5-5.1 [facility] Sodium molar conc 140 mmol/L Normal 137-145 [facility] Urea nitrogen mass conc 7 mg/dL Normal 7-20 [facility] LIVER PANELon 04-25-2018 Albumin mass conc 4.4 g/dL Normal 2.9-5.3 [facility] ALP enzyme act/vol 116 U/L Normal 38-126 [facility] ALT enzyme act/vol 30 U/L Normal 9-52 [facility] AST enzyme act/vol 37 U/L High 14-36 [facility] Bilirubin mass conc 1.0 mg/dL Normal 0.2-1.3 [facility] Bilirubin.direct mass conc 0.3 mg/dL Normal 0-0.4 [facility] Protein mass conc 7.8 g/dL Normal 6.3-8.2 [facility] RAPID TOX SCREEN,URINEon AMPHETAMINE Negative Normal NEGATIVE [facility] Comment on above: Result Comment: <500 ng/ml CUTOFF BARBITURATES Negative Normal NEGATIVE [facility] Comment on above: Result Comment: <200 ng/ml CUTOFF Benzodiazepines Ql (U) Negative Normal NEGATIVE [facility] Comment on above: Result Comment: <150 ng/ml CUTOFF BUPRENORPHINE Negative Normal NEGATIVE [facility] Comment on above: Result Comment: <10 ng/ml CUTOFF Cannabinoids Screen Ql (U) Positive Abnormal NEGATIVE [facility] Comment on above: Result Comment: <50 ng/ml CUTOFF *Unconfirmed Screening Result* Unconfirmed screening results are to be used only for medical treatment purposes. Cocaine Ql (U) Negative Normal NEGATIVE [facility] Comment on above: Result Comment: <150 ng/ml CUTOFF Methadone Ql (U) Negative Normal NEGATIVE [facility] Comment on above: Result Comment: <200 ng/ml CUTOFF METHAMPHETAMINE Negative Normal NEGATIVE [facility] Comment on above: Result Comment: <500 ng/ml CUTOFF Opiates Ql (U) Negative Normal NEGATIVE [facility] Comment on above: Result Comment: <100 ng/ml CUTOFF OXYCODONE Negative Normal NEGATIVE [facility] Comment on above: Result Comment: <100 ng/ml CUTOFF Phencyclidine Ql (U) Negative Normal NEGATIVE [facility] Comment on above: Result Comment: <25 ng/ml CUTOFF Protein mass conc (U) Negative Normal NEGATIVE [facility] Comment on above: Result Comment: <300 ng/ml CUTOFF Tricyclic antidepressants Screen Ql (U) Negative Normal NEGATIVE [facility] Comment on above: Result Comment: <300 ng/ml CUTOFF SALICYLATESon 04-25-2018 SALICYLATES <1.0 Normal 0-20 [facility] TSHon 04-25-2018 Thyrotropin Qn 0.480 uIU/ML Normal 0.46-4.68 [facility] URINE MACROSCOPICon 04-25-20 18 Bilirubin Ql (U) Negative Normal NEGATIVE [facility] Clarity Nom (U) CLEAR Normal CLEAR [facility] Color Nom (U) YELLOW Normal YELLOW [facility] Glucose Ql (U) Negative Normal NEGATIVE [facility] pH (U) 6.5 [pH] Normal 5.0-7.0 [facility] Protein mass conc (U) Negative Normal NEGATIVE [facility] URINE HEMOGLOBIN LARGE Abnormal NEGATIVE [facility] URINE KETONE Negative Normal NEGATIVE [facility] URINE LEUKOTEST MODERATE Abnormal NEGATIVE [facility] URINE NITRATES Negative Normal NEGATIVE [facility] URINE SPEC GRAVITY 1.010 Normal 1.010-1.025 [facility] Urobilinogen Qn (U) 0.2 mg/dl Normal 0.2-1.0 [facility] URINE MICROSCOPICon 04-25-20 18 Bacteria LM.HPF #/area (Urine sed) 2+ Abnormal NEGATIVE [facility] Casts LM.LPF #/area (Urine sed) NONE Normal NONE [facility] CRYSTAL RARE Abnormal NONE [facility] Comment on above: Result Comment: CA O XALATE CRYSTALS Epithelial cells LM.HPF #/area (Urine sed) 10 TO 20 Normal [facility] Mucus Ql (Urine sed) TRACE Abnormal NEGATIVE [facility] RBC #/vol (U) 5 TO 10 Normal NEGATIVE [facility] URINE COMMENT POSSIBLY CONTAMINATE D SPECIMEN, CULTURE MUST BE ORDERED SEPARATELY IF DEEMED NECESSARY. Normal [facility] WBC #/vol (U) 1 TO 5 Normal NEGATIVE [facility] Glucose, POCon 02-27-2018 Glucose mass conc 145 mg/dL High 70-105 [facility] Comment on above: Performed By: #### G LUX ####Unless otherwise noted, all testing performed by [address] [id number]: [id number] Director: Geronimo Ibrahim M.D. Glucose mass conc 218 mg/dL High 70-105 [facility] Comment on above: Performed By: #### G LUX ####Unless otherwise noted, all testing performed by [address] [phone]: [id number] Director: Geronimo Ibrahim M.D. Basic Metabolic Profon 02-16 Potassium molar conc 2.9 mmol/L Critically low 3.7-5.3 [facility] Comment on above: Performed By: #### C DP #### [address] [place] [address] #### TROPGunner, BMP #### [address] [place] [address] (cont.) Normal [facility] Comment on above: Result Comment: Aver age GFR for 20-29 years old: 116 mL/min/1.73sq m Chronic Kidney Disease: <60 mL/min/1.73sq m Kidney failure: <15 mL/min/1.73sq m eGFR calculated using average adult body mass. Additional eGFR calculator available at: http://www.[employer]/multiple_crcl_2012.htm Performed By: #### C DP #### [id number] [place] [address] #### TROPI, BMP #### [address] [place] [address] Anion gap molar conc 17 mmol/L Normal 9-17 [facility] Comment on above: Performed By: #### C DP #### [address] [place] [address] #### TROPI, BMP #### [address] [place] [address] BUN/CRE Ratio 5 Low 9-20 [facility] Comment on above: Performed By: #### C DP #### [address] [address] #### TROPI, BMP #### [address] [place] [address] Calcium mass conc 8.9 mg/dL Normal 8.6-10.4 [facility] Comment on above: Performed By: #### C DP #### [address] [address] #### TROPI, BMP #### [address] [place] [address] Chloride molar conc 102 mmol/L Normal 98-107 [facility] Comment on above: Performed By: #### C DP #### [address] [address] #### TROPI, BMP #### [address] [place] [address] CO2 molar conc 18 mmol/L Low 20-31 [facility] Comment on above: Performed By: #### C DP #### [address] [address] #### TROPI, BMP #### [address] [place] [address] Creatinine mass conc 0.43 mg/dL Low 0.50-0.90 [facility] Comment on above: Performed By: #### C DP #### [address] [address] #### TROPI, BMP #### [address] [place] [address] GFR, Amer >60 Normal >60 [facility] Comment on above: Performed By: #### C DP #### [address] [address] #### TROPI, BMP #### [address] [place] [address] GFR,non Amer >60 Normal >60 [facility] Comment on above: Performed By: #### C DP #### [address] [address] #### TROPI, BMP #### [address] [place] [address] Glucose mass conc 146 mg/dL High 70-99 [facility] Comment on above: Performed By: #### C DP #### [address] [address] #### TROPI, BMP #### [address] [place] [address] Sodium molar conc 137 mmol/L Normal 135-144 [facility] Comment on above: Performed By: #### C DP #### [address] [address] #### TROPI, BMP #### [address] [place] [address] Staging: Normal [facility] Comment on above: Result Comment: Stag e 1: Some kidney damage normal GFR Stage 2: Mild kidney damage GFR 60-89 Stage 3: Moderate kidney damage GFR 30-59 Stage 4: Severe kidney damage GFR 15-29 Stage 5: Severe kidney damage GFR <15 ESRD - chronic treatment by dialysis or transplant Performed at [address] [place] [address] Performed By: #### C DP #### [address] [address] #### TROPI, BMP #### [address] [place] [address] Urea nitrogen mass conc 2 mg/dL Low 6-20 [facility] Comment on above: Performed By: #### C DP #### [address] [address] #### TROPI, BMP #### [address] [place] [address] CBC with Diffon 02-16-2018 Abs. Basophil <0.03 Normal 0.00-0.20 [facility] Comment on above: Performed By: #### C DP #### [address] [address] #### TROPI, BMP #### [address] [place] [address] Abs.Imm.Granulocyte 0.08 k/uL Normal 0.00-0.30 [facility] Comment on above: Result Comment: Perf ormed at [address] [address] Performed By: #### C DP #### [address] [address] #### TROPI, BMP #### [address] [place] [address] Abs.Neutrophil (Seg) 8.67 k/uL High 1.50-8.10 [facility] Comment on above: Performed By: #### C DP #### [address] [address] #### TROPI, BMP #### [address] [place] [address] Basophils/100 WBC (Bld) 0 % Normal 0-2 [facility] Comment on above: Performed By: #### C DP #### [address] [address] #### TROPI, BMP #### [address] [place] [address] Eosinophils #/vol (Bld) 10*3/uL Normal 0.00-0.44 [facility] Comment on above: Performed By: #### C DP #### [address] [address] #### TROPI, BMP #### [address] [place] [address] Eosinophils/100 WBC (Bld) 0 % Low 1-4 [facility] Comment on above: Performed By: #### C DP #### [address] [address] #### TROPI, BMP #### [address] [place] [address] Erythrocyte distribution width Ratio (RBC) 15.2 % High 11.8-14.4 [facility] Comment on above: Performed By: #### C DP #### [address] [address] #### TROPI, BMP #### [address] [place] [address] Hematocrit Volume Fraction (Bld) 33.3 % Low 36.3-47.1 [facility] Comment on above: Performed By: #### C DP #### [address] [address] #### TROPI, BMP #### [address] [place] [address] Hemoglobin mass conc (Bld) 10.9 g/dL Low 11.9-15.1 [facility] Comment on above: Performed By: #### C DP #### [address] [address] #### TROPI, BMP #### [address] [place] [address] Immature granulocytes #/vol (Bld) 1 % High 0 [facility] Comment on above: Performed By: #### C DP #### [address] [address] #### TROPI, BMP #### [address] [place] [address] Lymphocytes #/vol (Bld) 1.82 10*3/uL Normal 1.10-3.70 [facility] Comment on above: Performed By: #### C DP #### [address] [address] #### TROPI, BMP #### [address] [place] [address] Lymphocytes/100 WBC (Bld) 16 % Low 24-43 [facility] Comment on above: Performed By: #### C DP #### [address] [address] #### TROPI, BMP #### [address] [place] [address] MCH Entitic mass (RBC) 27.2 pg Normal 25.2-33.5 [facility] Comment on above: Performed By: #### C DP #### [address] [address] #### TROPI, BMP #### [address] [place] [address] MCHC mass conc (RBC) 32.7 g/dL Normal 28.4-34.8 [facility] Comment on above: Performed By: #### C DP #### [address] [address] #### TROPI, BMP #### [address] [place] [address] MCV Entitic volume (RBC) 83.0 fL Normal 82.6-102.9 [facility] Comment on above: Performed By: #### C DP #### [address] [address] #### TROPI, BMP #### [address] [place] [address] Monocytes #/vol (Bld) 0.55 10*3/uL Normal 0.10-1.20 [facility] Comment on above: Performed By: #### C DP #### [address] [address] #### TROPI, BMP #### [address] [place] [address] Monocytes/100 WBC (Bld) 5 % Normal 3-12 [facility] Comment on above: Performed By: #### C DP #### [address] [address] #### TROPI, BMP #### [address] [place] [address] Neutrophil (Seg) 78 % High 36-65 [facility] Comment on above: Performed By: #### C DP #### [address] [address] #### TROPI, BMP #### [address] [place] [address] NRBC Automated 0.0 per 100 WBC Normal 0.0 [facility] Comment on above: Performed By: #### C DP #### [address] [address] #### TROPI, BMP #### [address] [place] [address] Platelet mean volume Entitic volume (Bld) 10.2 fL Normal 8.1-13.5 [facility] Comment on above: Performed By: #### C DP #### [address] [address] #### TROPI, BMP #### [address] [place] [address] Platelets #/vol (Bld) 236 10*3/uL Normal 138-453 [facility] Comment on above: Performed By: #### C DP #### [address] [address] #### TROPI, BMP #### [address] [place] [address] RBC #/vol (Bld) 4.01 10*6/uL Normal 3.95-5.11 [facility] Comment on above: Performed By: #### C DP #### [address] [address] #### TROPI, BMP #### [address] [place] [address] WBC #/vol (Bld) 11.1 10*3/uL Normal 3.5-11.3 [facility] Comment on above: Performed By: #### C DP #### [address] [address] #### TROPI, BMP #### [address] [place] [address] Auto Diff Performed NOT REPORTED Normal [place] Comment on above: Performed By: #### C DP #### [address] [address] #### TROPI, BMP #### [address] [place] [address] Platelets #/vol (Bld) NOT REPORTED Normal [facility] Comment on above: Performed By: #### C DP #### [address] [address] #### TROPI, BMP #### [address] [place] [address] RBC morphology finding Nom (Bld) NOT REPORTED Normal [facility] Comment on above: Performed By: #### C DP #### [address] [address] #### TROPI, BMP #### [address] [place] [address] WBC Morphology NOT REPORTED Normal [facility] Comment on above: Performed By: #### C DP #### [address] [address] #### TROPI, BMP #### [address] [place] [address] Troponinon 02-16-2018 Troponin I.cardiac mass conc ng/mL Normal <0.03 [facility] Comment on above: Result Comment: Trop onin T results cannot be compared to Troponin-I results. Performed By: #### C DP #### [address] [address] #### TROPI, BMP #### [address] [place] [address] Troponin I.cardiac mass conc Normal [facility] Comment on above: Result Comment: [...] require additional information for diagnosis. Performed at [address] [place] [address] [phone] Performed By: #### C DP #### [facility] [place] [address] #### JULIO, BMP #### [address] [place] [address] CBCon 02-15-2018 ABSOLUTE BAS 0.0 X10 Normal [facility] Comment on above: Result Comment: Test ing performed at [place] [address] Performed By: #### A CBC, CHEM7F, BHCG2 ####[place] [address] ABSOLUTE EOS 0.10 X10 Normal [facility] Comment on above: Performed By: #### A CBC, CHEM7F, BHCG2 ####[place] [address] ABSOLUTE NEUTROPHIL COUNT 10.8 x10 High 1.0-7.0 [facility] Comment on above: Performed By: #### A CBC, CHEM7F, BHCG2 ####[place] [address] Basophils/100 WBC Auto (Bld) 0.3 % Normal 0.0-2.0 [facility] Comment on above: Performed By: #### A CBC, CHEM7F, BHCG2 ####[place] [address] DTYPE AUTO DIFF Normal [facility] Comment on above: Performed By: #### A CBC, CHEM7F, BHCG2 ####[place] [address] Eosinophils/100 WBC Auto (Bld) 1.1 % Normal 0.0-11.0 [facility] Comment on above: Performed By: #### A CBC, CHEM7F, BHCG2 ####[place] [address] Lymphocytes Auto #/vol (Bld) 1.70 X10 Normal [facility] Comment on above: Performed By: #### A CBC, CHEM7F, BHCG2 ####Testing performed at [address] [address] Lymphocytes/100 WBC Auto (Bld) 12.7 % Low 20.0-55.0 [facility] Comment on above: Performed By: #### A CBC, CHEM7F, BHCG2 ####Testing performed at [place] [id number] Monocytes Auto #/vol (Bld) 0.6 X10 Normal [facility] Comment on above: Performed By: #### A CBC, CHEM7F, BHCG2 ####[place] [address] Monocytes/100 WBC Auto (Bld) 4.8 % Normal 0.0-10.0 [facility] Comment on above: Performed By: #### A CBC, CHEM7F, BHCG2 ####Testing performed at [place] [id number] Neutrophils/100 WBC Auto (Bld) 81.1 % High 37.0-75.0 [facility] Comment on above: Performed By: #### A CBC, CHEM7F, BHCG2 ####Testing performed at [place] [id number] Erythrocyte distribution width Auto Ratio (RBC) 16.8 % High 11.5-14.5 [facility] Comment on above: Performed By: #### A CBC, CHEM7F, BHCG2 ####Testing performed at [place] [id number] Hematocrit Auto Volume Fraction (Bld) 36.2 % Normal 36.0-48.0 [facility] Comment on above: Performed By: #### A CBC, CHEM7F, BHCG2 ####Testing performed at [place] [id number] Hemoglobin mass conc (Bld) 12.0 g/dL Normal 12.0-16.0 [facility] Comment on above: Performed By: #### A CBC, CHEM7F, BHCG2 ####[place] [address] MCH Auto Entitic mass (RBC) 27.8 pg Normal 26.0-35.0 [facility] Comment on above: Performed By: #### A CBC, CHEM7F, BHCG2 ####[place] [address] MCHC Auto mass conc (RBC) 33.2 g/dL Normal 27.0-37.0 [facility] Comment on above: Performed By: #### A CBC, CHEM7F, BHCG2 ####[place] [address] MCV Auto Entitic volume (RBC) 83.7 fL Normal 80.0-100.0 [facility] Comment on above: Performed By: #### A CBC, CHEM7F, BHCG2 ####[place] [address] Platelet mean volume Auto Entitic volume (Bld) 8.3 fL Normal 7.4-11.0 [facility] Comment on above: Performed By: #### A CBC, CHEM7F, BHCG2 ####[place] [address] Platelets Auto #/vol (Bld) 245 /cmm Normal 130.0-400.0 [facility] Comment on above: Performed By: #### A CBC, CHEM7F, BHCG2 ####[place] [address] RBC Auto #/vol (Bld) 4.33 /cmm Normal 4.0-5.4 [facility] Comment on above: Performed By: #### A CBC, CHEM7F, BHCG2 ####[place] [address] WBC Auto #/vol (Bld) 13.4 /cmm High 3.6-11.0 [facility] Comment on above: Performed By: #### A CBC, CHEM7F, BHCG2 ####Testing performed at [place] [id number] CMP FASTINGon 02-15-2018 A:G RATIO 1.2 RATIO Low 1.3-2.2 [facility] Comment on above: Performed By: #### A CBC, CHEM7F, BHCG2 ####[place] [address] Albumin mass conc 4.1 G/dl Normal 3.5-5.0 [facility] Comment on above: Performed By: #### A CBC, CHEM7F, BHCG2 ####[place] [address] ALP enzyme act/vol 105 U/L Normal 38-126 [facility] Comment on above: Performed By: #### A CBC, CHEM7F, BHCG2 ####[place] [address] ALT enzyme act/vol 11 U/L Normal 9-52 [facility] Comment on above: Performed By: #### A CBC, CHEM7F, BHCG2 ####[place] [address] AST enzyme act/vol 16 U/L Normal 14-36 [facility] Comment on above: Performed By: #### A CBC, CHEM7F, BHCG2 ####Testing performed at [place] [id number] Bilirubin mass conc 0.8 mg/dL Normal 0.2-1.3 [facility] Comment on above: Performed By: #### A CBC, CHEM7F, BHCG2 ####Testing performed at [place] [id number] Calcium mass conc 8.9 mg/dL Normal 8.4-10.2 [facility] Comment on above: Performed By: #### A CBC, CHEM7F, BHCG2 ####[place] [address] Chloride molar conc 105 mmol/L Normal 98-107 [facility] Comment on above: Performed By: #### A CBC, CHEM7F, BHCG2 ####[place] [address] CO2 molar conc 19 mmol/L Low 22-30 [facility] Comment on above: Performed By: #### A CBC, CHEM7F, BHCG2 ####[place] [address] Creatinine mass conc 0.5 mg/dL Low 0.7-1.2 [facility] Comment on above: Performed By: #### A CBC, CHEM7F, BHCG2 ####[place] [address] EST. GFR, >60 Normal [facility] Comment on above: Performed By: #### A CBC, CHEM7F, BHCG2 ####[place] [address] EST. GFR,Non >60 Normal [facility] Comment on above: Performed By: #### A CBC, CHEM7F, BHCG2 ####[place] [address] GFR/1.73 sq M predicted among non-blacks MDRD vol rate/area (S/P/Bld) Average GFR for 20-29 years old = 116. Normal [facility] Comment on above: Result Comment: Support Coordinator frantz Kidney disease, GFR = <60.Kidney failure, GFR = <15.The GFR estimate is not adjusted for extreme body surface area or acute process, nor has it been validated for women or ethnic groups other than and .Testing performed at [place] [address] Performed By: #### A CBC, CHEM7F, BHCG2 ####[place] [address] Glucose mass conc 133 mg/dL High 70-100 [facility] Comment on above: Result Comment: NORM AL <100 mg/dLPREDIABETES 101-126 mg/dLDIABETES 126 mg/dL or higher Performed By: #### A CBC, CHEM7F, BHCG2 ####[place] [address] Potassium molar conc 3.3 mmol/L Low 3.5-5.1 [facility] Comment on above: Performed By: #### A CBC, CHEM7F, BHCG2 ####[place] [address] Protein mass conc 7.5 g/dL Normal 6.3-8.2 [facility] Comment on above: Performed By: #### A CBC, CHEM7F, BHCG2 ####[place] [address] Sodium molar conc 139 mmol/L Normal 137-145 [facility] Comment on above: Performed By: #### A CBC, CHEM7F, BHCG2 ####[place] [address] Urea nitrogen mass conc (Bld) 3 mg/dL Low 7-20 [facility] Comment on above: Performed By: #### A CBC, CHEM7F, BHCG2 ####[place] [address] MAGNESIUMon 02-15-2018 Magnesium mass conc 1.6 mg/dL Normal 1.6-2.3 [facility] Comment on above: Result Comment: Test ing performed at [place] [address] Performed By: #### A CBC, CHEM7F, BHCG2 ####[place] [address] CHLAM/GC AMPLIFon 01-29-2018 CHLAMYDIA NUC. AMP Negative Normal Negative [facility] GONOCOCCUS NUC. AMP Negative Normal Negative [facility] Comment on above: Result Comment: PERF ORMED AT [facility] FIBRONECTINon 01-28-20 18 FIBRONECTIN Negative Normal NEGATIVE [facility] Comment on above: Result Comment: NO F ETAL FIBRONECTIN DETECTED.Testing performed at [place] [address] Performed By: #### A CBC, CHEM7F, BHCG2 ####[place] [address] RAPID TOX SCREEN,URINE WITH REFLEXon 01-27-2018 AMPHETAMINE Negative Normal NEGATIVE [facility] Comment on above: Result Comment: <500 ng/ml CUTOFF Performed By: #### A CBC, CHEM7F, BHCG2 ####[place] [address] BARBITURATES Negative Normal NEGATIVE [facility] Comment on above: Result Comment: <200 ng/ml CUTOFF Performed By: #### A CBC, CHEM7F, BHCG2 ####[place] [address] BENZODIAZEPINES Positive Abnormal NEGATIVE [facility] Comment on above: Result Comment: <150 ng/ml CUTOFF*Unconfirmed Screening Result* Unconfirmed screening results are to be used only for medical treatment purposes. Performed By: #### A CBC, CHEM7F, BHCG2 ####[place] [address] BUPRENORPHINE Negative Normal NEGATIVE [facility] Comment on above: Result Comment: <10 ng/ml CUTOFFTesting performed at [place] [address] Performed By: #### A CBC, CHEM7F, BHCG2 ####[place] [address] CANNABINOIDS Positive Abnormal NEGATIVE [facility] Comment on above: Result Comment: <50 ng/ml CUTOFF*Unconfirmed Screening Result* Unconfirmed screening results are to be used only for medical treatment purposes. Performed By: #### A CBC, CHEM7F, BHCG2 ####[place] [address] COCAINE Negative Normal NEGATIVE [facility] Comment on above: Result Comment: <150 ng/ml CUTOFF Performed By: #### A CBC, CHEM7F, BHCG2 ####Testing performed at [place] [id number] METHADONE Negative Normal NEGATIVE [facility] Comment on above: Result Comment: <200 ng/ml CUTOFF Performed By: #### A CBC, CHEM7F, BHCG2 ####Testing performed at [place] [id number] METHAMPHETAMINE Negative Normal NEGATIVE [facility] Comment on above: Result Comment: <500 ng/ml CUTOFF Performed By: #### A CBC, CHEM7F, BHCG2 ####[place] [address] OPIATES Negative Normal NEGATIVE [facility] Comment on above: Result Comment: <100 ng/ml CUTOFF Performed By: #### A CBC, CHEM7F, BHCG2 ####[place] [address] OXYCODONE Negative Normal NEGATIVE [facility] Comment on above: Result Comment: <100 ng/ml CUTOFF Performed By: #### A CBC, CHEM7F, BHCG2 ####[place] [address] PHENCYCLIDINE Negative Normal NEGATIVE [facility] Comment on above: Result Comment: <25 ng/ml CUTOFF Performed By: #### A CBC, CHEM7F, BHCG2 ####[place] [address] Protein mass conc Negative Normal NEGATIVE [facility] Comment on above: Result Comment: <300 ng/ml CUTOFF Performed By: #### A CBC, CHEM7F, BHCG2 ####[place] [address] TRICYCLIC ANTIDEPRESSANTS Negative Normal NEGATIVE [facility] Comment on above: Result Comment: <300 ng/ml CUTOFF Performed By: #### A CBC, CHEM7F, BHCG2 ####[place] [address] STREP SCREEN GRP Bon 03-25-2 018 STREP SCREEN GRP B SPECIMEN DESCRIPTION VAGINAL/RECTAL CULTURE NO GROUP B BETA STREP ISOLATED * Result Note: Testing performed at [place] [address] * REPORT STATUS 01/29/2018 * Result Note: FINAL * Normal [facility] Comment on above: Performed By: #### A CBC, CHEM7F, BHCG2 ####Testing performed at [place] [id number] URINE CULTUREon 01-27-2018 Bacteria identified Cx Nom (U) SPECIMEN DESCRIPTION URINE - OTHERUA DIPSTICK NITRITE NEGATIVE * Result Note: LEUKOCYTE POSITIVE *CULTURE MULTIPLE SPECIES PRESENT;PROBABLE CONTAMINATION. SUGGEST REPEAT SPECIMEN. * Result Note: Testing performed at [place] [address] *REPORT STATUS 01/29/2018 * Result Note: FINAL * Normal [facility] Comment on above: Performed By: #### A CBC, CHEM7F, BHCG2 ####[place] [address] URINE MACROSCOPICon 01-28-20 18 Bilirubin Ql (U) SMALL Abnormal NEGATIVE [facility] Comment on above: Performed By: #### A CBC, CHEM7F, BHCG2 ####[place] [address] Clarity Nom (U) CLEAR Abnormal CLEAR [facility] Comment on above: Performed By: #### A CBC, CHEM7F, BHCG2 ####[place] [address] Color Nom (U) YELLOW Normal YELLOW [facility] Comment on above: Performed By: #### A CBC, CHEM7F, BHCG2 ####Testing performed at [place] [address] Glucose Ql (U) Negative Normal NEGATIVE [facility] Comment on above: Performed By: #### A CBC, CHEM7F, BHCG2 ####Testing performed at [place] [address] pH Test strip (U) 6.0 [pH] Normal 5.0-7.0 [facility] Comment on above: Performed By: #### A CBC, CHEM7F, BHCG2 ####[place] [address] URINE HEMOGLOBIN Negative Normal NEGATIVE [facility] Comment on above: Performed By: #### A CBC, CHEM7F, BHCG2 ####[place] [address] URINE KETONE TRACE Abnormal NEGATIVE [facility] Comment on above: Performed By: #### A CBC, CHEM7F, BHCG2 ####[place] [address] URINE LEUKOTEST SMALL Abnormal NEGATIVE [facility] Comment on above: Result Comment: Test ing performed at [place] [address] Performed By: #### A CBC, CHEM7F, BHCG2 ####[place] [address] URINE NITRATES Negative Normal NEGATIVE [facility] Comment on above: Performed By: #### A CBC, CHEM7F, BHCG2 ####[place] [address] URINE SPEC GRAVITY >1.030 High 1.010-1.025 [facility] Comment on above: Performed By: #### A CBC, CHEM7F, BHCG2 ####[place] [address] URINE TOTAL PROTEIN 30 mg/dl Abnormal NEGATIVE [facility] Comment on above: Performed By: #### A CBC, CHEM7F, BHCG2 ####[place] [address] Urobilinogen Test strip Qn (U) 1.0 mg/dl Normal 0.2-1.0 [facility] Comment on above: Performed By: #### A CBC, CHEM7F, BHCG2 ####[place] [address] URINE MICROSCOPICon 01-28-20 18 BACTERIA 2+ Abnormal NEGATIVE [facility] Comment on above: Performed By: #### A CBC, CHEM7F, BHCG2 ####[place] [address] CASTS NONE Normal NONE [facility] Comment on above: Performed By: #### A CBC, CHEM7F, BHCG2 ####[place] [address] CRYSTAL NONE Normal NONE [facility] Comment on above: Performed By: #### A CBC, CHEM7F, BHCG2 ####[place] [address] EPITHELIAL CELLS 5 TO 10 Normal [facility] Comment on above: Performed By: #### A CBC, CHEM7F, BHCG2 ####[place] [address] MUCUS 1+ Abnormal NEGATIVE [facility] Comment on above: Performed By: #### A CBC, CHEM7F, BHCG2 ####[place] [address] RBC Test strip #/vol (U) 1 TO 5 Normal NEGATIVE [facility] Comment on above: Performed By: #### A CBC, CHEM7F, BHCG2 ####[place] [address] URINE COMMENT REFLEX CULTURE PER ESTABLISHED CRITERIA. Normal [facility] Comment on above: Result Comment: Test ing performed at [place] [address] Performed By: #### A CBC, CHEM7F, BHCG2 ####[place] [address] URINE WBC'S 1 TO 5 Normal NEGATIVE [facility] Comment on above: Performed By: #### A CBC, CHEM7F, BHCG2 ####[place] [address] Alcohol, Medicalon 8 Ethanol mass conc Negative Normal [facility] Comment on above: Performed By: #### A LC ####Unless otherwise noted, all testing performed by [address] [id number]: [id number] Director: Geronimo Ibrahim M.D. Drugs of Abuse, Urineon 12-06 Amphetamines,Ur None Detected Normal None Detected [facility] Comment on above: Performed By: #### D RUGSCRU ####Unless otherwise noted, all testing performed by [phone]: [id number] Director: Geronimo Ibrahim M.D. Barbiturates,Ur None Detected Normal None Detected [facility] Comment on above: Performed By: #### D RUGSCRU ####Unless otherwise noted, all testing performed by [place] [phone]: [id number] Director: Geronimo Ibrahim M.D. Benzodiazepine,Ur None Detected Normal None Detected [facility] Comment on above: Performed By: #### D RUGSCRU ####Unless otherwise noted, all testing performed by [place] [phone]: [id number] Director: Geronimo Ibrahim M.D. Cannabinoids,Ur Positive Abnormal None Detected [facility] Comment on above: Performed By: #### D RUGSCRU ####Unless otherwise noted, all testing performed by [place] [phone]: [id number] Director: Geronimo Ibrahim M.D. Cocaine,Ur None Detected Normal None Detected [facility] Comment on above: Performed By: #### D RUGSCRU ####Unless otherwise noted, all testing performed by [address] [phone]: [id number] Director: Geronimo Ibrahim M.D. DOA Cutoffs See comment. Normal [facility] Comment on above: Result Comment: Drug s of Abuse, Urine Presumptive Positive Cutoff Concentrations.Amphetamine/Methamphetamine: 1000 ng/mlBarbiturates: 200 ng/mlBenzodiazepines and metabolities: 200 ng/mlCannabinoids: 50 ng/mlCocaine/Benzoylecgonine: 300 ng/mlMethadone:300 ng/mlOpiates: 300 ng/mlOxycodone/Oxymorphone: 100 ng/ml Performed By: #### D RUGSCRU ####Unless otherwise noted, all testing performed by [place] [phone]: [id number] Director: Geronimo Ibrahim M.D. Methadone,Ur None Detected Normal None Detected [facility] Comment on above: Performed By: #### D RUGSCRU ####Unless otherwise noted, all testing performed by [address] [phone]: [id number] Director: Geronimo Ibrahim M.D. Opiates,Ur None Detected Normal None Detected [facility] Comment on above: Performed By: #### D RUGSCRU ####Unless otherwise noted, all testing performed by [place] [phone]: [id number] Director: Geronimo Ibrahim M.D. Oxycodone, Urine None Detected Normal None Detected [facility] Comment on above: Result Comment: THES E DRUGS OF ABUSE TESTS ARE PROVIDED A MEDICAL SCREENING ONLY.POSITIVE RESULTS ARENOT CONFIRMED BY GCMS Performed By: #### D FAUSTINO ####Unless otherwise noted, all testing performed by [place] [address] [place], [place] [phone]: [id number] Director: Geronimo Ibrahim M.D. SENDOUT TESTon 11-15-2017 SENDOUT TEST SENT TO [facility] Comment on above: Result Comment: Test ing performed at [place] [address] Performed By: #### K OHP ####[place] [address] CBCon 10-26-2017 ABSOLUTE BAS 0.0 X10 Normal [facility] Comment on above: Result Comment: Test ing performed at [place] [address] Performed By: #### K OHP ####[place] [address] ABSOLUTE EOS 0.10 X10 Normal [facility] Comment on above: Performed By: #### K OHP ####[place] [address] ABSOLUTE NEUTROPHIL COUNT 6.2 x10 Normal 1.0-7.0 [facility] Comment on above: Performed By: #### K OHP ####[place] [address] Basophils/100 WBC Auto (Bld) 0.5 % Normal 0.0-2.0 [facility] Comment on above: Performed By: #### K OHP ####[place] [address] DTYPE AUTO DIFF Normal [facility] Comment on above: Performed By: #### K OHP ####[place] [address] Eosinophils/100 WBC Auto (Bld) 1.4 % Normal 0.0-11.0 [facility] Comment on above: Performed By: #### K OHP ####Testing performed at [address] [address] Lymphocytes Auto #/vol (Bld) 1.50 X10 Normal [facility] Comment on above: Performed By: #### K OHP ####Testing performed at [address] [address] Lymphocytes/100 WBC Auto (Bld) 17.7 % Low 20.0-55.0 [facility] Comment on above: Performed By: #### K OHP ####Testing performed at [address] [address] Monocytes Auto #/vol (Bld) 0.6 X10 Normal [facility] Comment on above: Performed By: #### K OHP ####Testing performed at [address] [address] Monocytes/100 WBC Auto (Bld) 6.7 % Normal 0.0-10.0 [facility] Comment on above: Performed By: #### K OHP ####Testing performed at [address] [address] Neutrophils/100 WBC Auto (Bld) 73.7 % Normal 37.0-75.0 [facility] Comment on above: Performed By: #### K OHP ####Testing performed at [address] [address] Erythrocyte distribution width Auto Ratio (RBC) 14.6 % High 11.5-14.5 [facility] Comment on above: Performed By: #### K OHP ####Testing performed at [address] [address] Hematocrit Auto Volume Fraction (Bld) 37.3 % Normal 36.0-48.0 [facility] Comment on above: Performed By: #### K OHP ####Testing performed at [address] [address] Hemoglobin mass conc (Bld) 12.4 g/dL Normal 12.0-16.0 [facility] Comment on above: Performed By: #### K OHP ####[place] [address] MCH Auto Entitic mass (RBC) 27.0 pg Normal 26.0-35.0 [facility] Comment on above: Performed By: #### K OHP ####[place] [address] MCHC Auto mass conc (RBC) 33.4 g/dL Normal 27.0-37.0 [facility] Comment on above: Performed By: #### K OHP ####[place] [address] MCV Auto Entitic volume (RBC) 81.0 fL Normal 80.0-100.0 [facility] Comment on above: Performed By: #### K OHP ####[place] [address] Platelet mean volume Auto Entitic volume (Bld) 8.4 fL Normal 7.4-11.0 [facility] Comment on above: Performed By: #### K OHP ####[place] [address] Platelets Auto #/vol (Bld) 247 /cmm Normal 130.0-400.0 [facility] Comment on above: Performed By: #### K OHP ####[place] [address] RBC Auto #/vol (Bld) 4.60 /cmm Normal 4.0-5.4 [facility] Comment on above: Performed By: #### K OHP ####[place] [address] WBC Auto #/vol (Bld) 8.4 /cmm Normal 3.6-11.0 [facility] Comment on above: Performed By: #### K OHP ####[place] [address] CT ABDOMEN/PELVIS WITHOUT CO NTRASTon 10-26-2017 CT [...] findings in the abdomen or pelvis. Normal [facility] ESRon 10-26-2017 ESR Velocity (Bld) 60 mm/h High 0-20 [facility] Comment on above: Result Comment: Test ing performed at [place] [address] Performed By: #### K [facility] ####Testing performed at [place] [id number] [place] [id number] [facility]QUANTITATIVEon 10-25-20 17 [facility] [address].00 MIU/ML Normal [facility] Comment on above: Result Comment: [facility] INTERPRETIVE RANGES: NON FEMALE 0-6 MIU/MLMALE ADULT [...] testing of urine.Testing performed at [place] [address] Performed By: #### K OHP ####[place] [address] BMP FASTINGon 10-25-2017 Anion gap 3 molar conc 12 mmol/L Normal 8-16 [facility] Comment on above: Performed By: #### K OHP ####[place] [address] Calcium mass conc 9.3 mg/dL Normal 8.4-10.2 [facility] Comment on above: Performed By: #### K OHP ####[place] [address] Chloride molar conc 104 mmol/L Normal 98-107 [facility] Comment on above: Performed By: #### K OHP ####[place] [address] CO2 molar conc 20 mmol/L Low 22-30 [facility] Comment on above: Performed By: #### K OHP ####[place] [address] Creatinine mass conc 0.7 mg/dL Normal 0.7-1.2 [facility] Comment on above: Performed By: #### K OHP ####[place] [address] EST. GFR, >60 Normal [facility] Comment on above: Performed By: #### K OHP ####[place] [address] EST. GFR,Non >60 Normal [facility] Comment on above: Performed By: #### K OHP ####[place] [address] GFR/1.73 sq M predicted among non-blacks MDRD vol rate/area (S/P/Bld) Average GFR for 20-29 years old = 116. Normal [facility] Comment on above: Result Comment: Support Coordinator frantz Kidney disease, GFR = <60.Kidney failure, GFR = <15.The GFR estimate is not adjusted for extreme body surface area or acute process, nor has it been validated for women or ethnic groups other than and .Testing performed at [place] [address] Performed By: #### K OHP ####[place] [address] Glucose mass conc 101 mg/dL High 70-100 [facility] Comment on above: Result Comment: NORM AL <100 mg/dLPREDIABETES 101-126 mg/dLDIABETES 126 mg/dL or higher Performed By: #### K OHP ####[place] [address] Potassium molar conc 3.5 mmol/L Normal 3.5-5.1 [facility] Comment on above: Performed By: #### K OHP ####[place] [address] Sodium molar conc 136 mmol/L Low 137-145 [facility] Comment on above: Performed By: #### K OHP ####[place] [address] Urea nitrogen mass conc (Bld) 6 mg/dL Low 7-20 [facility] Comment on above: Performed By: #### K OHP ####[place] [address] CBCon 10-25-2017 ABSOLUTE BAS 0.2 X10 Normal [facility] Comment on above: Result Comment: Test ing performed at [place] [address] Performed By: #### K OHP ####[place] [address] ABSOLUTE EOS 0.20 X10 Normal [facility] Comment on above: Performed By: #### K OHP ####Testing performed at [place] [id number] ABSOLUTE NEUTROPHIL COUNT 9.6 x10 High 1.0-7.0 [facility] Comment on above: Performed By: #### K OHP ####Testing performed at [address] [address] Basophils/100 WBC Auto (Bld) 1.3 % Normal 0.0-2.0 [facility] Comment on above: Performed By: #### K OHP ####Testing performed at [place] [id number] DTYPE AUTO DIFF Normal [facility] Comment on above: Performed By: #### K OHP ####Testing performed at [place] [address] Eosinophils/100 WBC Auto (Bld) 1.6 % Normal 0.0-11.0 [facility] Comment on above: Performed By: #### K OHP ####Testing performed at [place] [id number] Lymphocytes Auto #/vol (Bld) 2.50 X10 Normal [facility] Comment on above: Performed By: #### K OHP ####Testing performed at [place] [address] Lymphocytes/100 WBC Auto (Bld) 18.7 % Low 20.0-55.0 [facility] Comment on above: Performed By: #### K OHP ####Testing performed at [address] [address] Monocytes Auto #/vol (Bld) 0.7 X10 Normal [facility] Comment on above: Performed By: #### K OHP ####Testing performed [facility] [address] [place] [address] Monocytes/100 WBC Auto (Bld) 5.3 % Normal 0.0-10.0 [facility] Comment on above: Performed By: #### K OHP ####Testing performed at [address] [address] Neutrophils/100 WBC Auto (Bld) 73.1 % Normal 37.0-75.0 [facility] Comment on above: Performed By: #### K OHP ####Testing performed at [place] [address] Erythrocyte distribution width Auto Ratio (RBC) 14.7 % High 11.5-14.5 [facility] Comment on above: Performed By: #### K OHP ####Testing performed at [place] [address] Hematocrit Auto Volume Fraction (Bld) 39.5 % Normal 36.0-48.0 [facility] Comment on above: Performed By: #### K OHP ####[place] [address] Hemoglobin mass conc (Bld) 13.0 g/dL Normal 12.0-16.0 [facility] Comment on above: Performed By: #### K OHP ####Testing performed at [address] [address] MCH Auto Entitic mass (RBC) 26.7 pg Normal 26.0-35.0 [facility] Comment on above: Performed By: #### K OHP ####Testing performed at [address] [address] MCHC Auto mass conc (RBC) 32.8 g/dL Normal 27.0-37.0 [facility] Comment on above: Performed By: #### K OHP ####Testing performed at [address] [address] MCV Auto Entitic volume (RBC) 81.3 fL Normal 80.0-100.0 [facility] Comment on above: Performed By: #### K OHP ####[place] [address] Platelet mean volume Auto Entitic volume (Bld) 8.3 fL Normal 7.4-11.0 [facility] Comment on above: Result Comment: Test ing performed at [place] [address] Performed By: #### K OHP ####[place] [address] Platelets Auto #/vol (Bld) 289 /cmm Normal 130.0-400.0 [facility] Comment on above: Performed By: #### K OHP ####[place] [address] RBC Auto #/vol (Bld) 4.85 /cmm Normal 4.0-5.4 [facility] Comment on above: Performed By: #### K OHP ####[place] [address] WBC Auto #/vol (Bld) 13.1 /cmm High 3.6-11.0 [facility] Comment on above: Performed By: #### K OHP ####[place] [address] LACTIC ACIDon 10-25-2017 Lactate molar conc 1.5 mmol/L Normal 0.7-2.1 [facility] Comment on above: Result Comment: Test ing performed at [place] [address] Performed By: #### K OHP ####[place] [address] LIVER PANELon 10-25-2017 Albumin mass conc 4.4 g/dL Normal 2.9-5.3 [facility] Comment on above: Performed By: #### K OHP ####[place] [address] ALP enzyme act/vol 74 U/L Normal 38-126 [facility] Comment on above: Performed By: #### K OHP ####[place] [address] ALT enzyme act/vol 27 U/L Normal 9-52 [facility] Comment on above: Result Comment: Test ing performed at [place] [address] Performed By: #### K OHP ####[place] [address] AST enzyme act/vol 14 U/L Normal 14-36 [facility] Comment on above: Performed By: #### K OHP ####Testing performed at [place] [id number] Bilirubin mass conc 1.2 mg/dL Normal 0.2-1.3 [facility] Comment on above: Performed By: #### K OHP ####[place] [address] Bilirubin.direct mass conc 0.3 mg/dL Normal 0-0.4 [facility] Comment on above: Performed By: #### K OHP ####[place] [address] Protein mass conc 8.0 g/dL Normal 6.3-8.2 [facility] Comment on above: Performed By: #### K OHP ####[place] [address] RAPID FLU Aon 10-25-2017 INFLUENZA A AG Negative Normal NEGATIVE [facility] Comment on above: Performed By: #### K OHP ####Testing performed at [place] [id number] INFLUENZA B AG Negative Normal NEGATIVE [facility] Comment on above: Result Comment: TEST ING PERFORMED BY NAATesting performed at [place] [address] Performed By: #### K OHP ####Testing performed at [place] [id number] URINE MACROSCOPICon 10-25-20 17 Bilirubin Ql (U) SMALL Abnormal NEGATIVE [facility] Comment on above: Performed By: #### U MAC, UMIC ####[place] [address] Clarity Nom (U) SLIGHTLY CLOUDY Abnormal CLEAR [facility] Comment on above: Performed By: #### U MAC, UMIC ####[place] [address] Color Nom (U) YELLOW Normal YELLOW [facility] Comment on above: Performed By: #### U MAC, UMIC ####[place] [address] Glucose Ql (U) Negative Normal NEGATIVE [facility] Comment on above: Performed By: #### U MAC, UMIC ####[place] [address] pH Test strip (U) 5.5 [pH] Normal 5.0-7.0 [facility] Comment on above: Performed By: #### U MAC, UMIC ####[place] [address] URINE HEMOGLOBIN Negative Normal NEGATIVE [facility] Comment on above: Performed By: #### U MAC, UMIC ####[place] [address] URINE KETONE 15 mg/dl Abnormal NEGATIVE [facility] Comment on above: Performed By: #### U MAC, UMIC ####[place] [address] URINE LEUKOTEST Negative Normal NEGATIVE [facility] Comment on above: Result Comment: Test ing performed at [place] [address] Performed By: #### U MAC, UMIC ####[place] [address] URINE NITRATES Negative Normal NEGATIVE [facility] Comment on above: Performed By: #### U MAC, UMIC ####[place] [address] URINE SPEC GRAVITY >1.030 High 1.010-1.025 [facility] Comment on above: Performed By: #### U MAC, UMIC ####[place] [address] URINE TOTAL PROTEIN TRACE Abnormal NEGATIVE [facility] Comment on above: Performed By: #### U MAC, UMIC ####[place] [address] Urobilinogen Test strip Qn (U) 0.2 mg/dl Normal 0.2-1.0 [facility] Comment on above: Performed By: #### U MAC, UMIC ####[place] [address] URINE MICROSCOPICon 10-25-20 17 BACTERIA 1+ Abnormal NEGATIVE [facility] Comment on above: Performed By: #### U MAC, UMIC ####[place] [address] CASTS NONE Normal NONE [facility] Comment on above: Performed By: #### U MAC, UMIC ####[place] [address] CRYSTAL NONE Normal NONE [facility] Comment on above: Performed By: #### U MAC, UMIC ####[place] [address] EPITHELIAL CELLS 1 TO 5 Normal [facility] Comment on above: Performed By: #### U MAC, UMIC ####[place] [address] MUCUS TRACE Abnormal NEGATIVE [facility] Comment on above: Performed By: #### U MAC, UMIC ####[place] [address] RBC Test strip #/vol (U) Negative Normal NEGATIVE [facility] Comment on above: Performed By: #### U MAC, UMIC ####[place] [address] URINE COMMENT CULTURE CRITERIA NOT MET, NO CULTURE PERFORMED. Normal [facility] Comment on above: Result Comment: Test ing performed at [place] [address] Performed By: #### U MAC, UMIC ####[place] [address] URINE WBC'S 1 TO 5 Normal NEGATIVE [facility] Comment on above: Performed By: #### U MAC, UMIC ####[place] [address] CHLAM/GC AMPLIFon 10-17-2017 CHLAMYDIA NUC. AMP Negative Normal Negative [facility] GONOCOCCUS NUC. AMP Negative Normal Negative [facility] Comment on above: Result Comment: [facility]ATIVEon 10-15-20 17 [facility] [address].00 MIU/ML Normal Av [facility] Comment on above: Result Comment: [facility] INTERPRETIVE RANGES: NON FEMALE 0-6 MIU/MLMALE ADULT [...] testing of urine.Testing performed at [place] [address] Performed By: #### A CBC, CHEM7F, CG2 ####[place] [address] CBCon 10-15-2017 ABSOLUTE BAS 0.1 X10 Normal [facility] Comment on above: Result Comment: Test ing performed at [place] [address] Performed By: #### A CBC, CHEM7F, BHCG2 ####Testing performed at [address] [address] ABSOLUTE EOS 0.20 X10 Normal [facility] Comment on above: Performed By: #### A CBC, CHEM7F, BHCG2 ####Testing performed at [address] [address] ABSOLUTE NEUTROPHIL COUNT 7.6 x10 High 1.0-7.0 [facility] Comment on above: Performed By: #### A CBC, CHEM7F, BHCG2 ####Testing performed at [address] [address] Basophils/100 WBC Auto (Bld) 0.8 % Normal 0.0-2.0 [facility] Comment on above: Performed By: #### A CBC, CHEM7F, BHCG2 ####Testing performed at [address] [address] DTYPE AUTO DIFF Normal [facility] Comment on above: Performed By: #### A CBC, CHEM7F, BHCG2 ####Testing performed at [address] [address] Eosinophils/100 WBC Auto (Bld) 2.0 % Normal 0.0-11.0 [facility] Comment on above: Performed By: #### A CBC, CHEM7F, BHCG2 ####Testing performed at [address] [address] Lymphocytes Auto #/vol (Bld) 1.40 X10 Normal [facility] Comment on above: Performed By: #### A CBC, CHEM7F, BHCG2 ####Testing performed at [address] [address] Lymphocytes/100 WBC Auto (Bld) 14.3 % Low 20.0-55.0 [facility] Comment on above: Performed By: #### A CBC, CHEM7F, BHCG2 ####Testing performed at [address] [address] Monocytes Auto #/vol (Bld) 0.6 X10 Normal [facility] Comment on above: Performed By: #### A CBC, CHEM7F, BHCG2 ####[place] [address] Monocytes/100 WBC Auto (Bld) 5.9 % Normal 0.0-10.0 [facility] Comment on above: Performed By: #### A CBC, CHEM7F, BHCG2 ####[place] [address] Neutrophils/100 WBC Auto (Bld) 77.0 % High 37.0-75.0 [facility] Comment on above: Performed By: #### A CBC, CHEM7F, BHCG2 ####[place] [address] Erythrocyte distribution width Auto Ratio (RBC) 15.1 % High 11.5-14.5 [facility] Comment on above: Performed By: #### A CBC, CHEM7F, BHCG2 ####[place] [address] Hematocrit Auto Volume Fraction (Bld) 36.8 % Normal 36.0-48.0 [facility] Comment on above: Performed By: #### A CBC, CHEM7F, BHCG2 ####[place] [address] Hemoglobin mass conc (Bld) 12.3 g/dL Normal 12.0-16.0 [facility] Comment on above: Performed By: #### A CBC, CHEM7F, BHCG2 ####[place] [address] MCH Auto Entitic mass (RBC) 27.2 pg Normal 26.0-35.0 [facility] Comment on above: Performed By: #### A CBC, CHEM7F, BHCG2 ####[place] [address] MCHC Auto mass conc (RBC) 33.3 g/dL Normal 27.0-37.0 [facility] Comment on above: Performed By: #### A CBC, CHEM7F, BHCG2 ####[place] [address] MCV Auto Entitic volume (RBC) 81.7 fL Normal 80.0-100.0 [facility] Comment on above: Performed By: #### A CBC, CHEM7F, BHCG2 ####[place] [address] Platelet mean volume Auto Entitic volume (Bld) 8.4 fL Normal 7.4-11.0 [facility] Comment on above: Performed By: #### A CBC, CHEM7F, BHCG2 ####[place] [address] Platelets Auto #/vol (Bld) 237 /cmm Normal 130.0-400.0 [facility] Comment on above: Performed By: #### A CBC, CHEM7F, BHCG2 ####[place] [address] RBC Auto #/vol (Bld) 4.51 /cmm Normal 4.0-5.4 [facility] Comment on above: Performed By: #### A CBC, CHEM7F, BHCG2 ####[place] [address] WBC Auto #/vol (Bld) 9.9 /cmm Normal 3.6-11.0 [facility] Comment on above: Performed By: #### A CBC, CHEM7F, BHCG2 ####[place] [address] CHEM 7 FASTINGon 10-15-2017 Chloride molar conc 106 mmol/L Normal 98-107 [facility] Comment on above: Performed By: #### A CBC, CHEM7F, BHCG2 ####[place] [address] CO2 molar conc 21 mmol/L Low 22-30 [facility] Comment on above: Performed By: #### A CBC, CHEM7F, BHCG2 ####[place] [address] Creatinine mass conc 0.7 mg/dL Normal 0.7-1.2 [facility] Comment on above: Performed By: #### A CBC, CHEM7F, BHCG2 ####[place] [address] EST. GFR, >60 Normal [facility] Comment on above: Performed By: #### A CBC, CHEM7F, BHCG2 ####[place] [address] EST. GFR,Non >60 Normal [facility] Comment on above: Performed By: #### A CBC, CHEM7F, BHCG2 ####[place] [address] GFR/1.73 sq M predicted among non-blacks MDRD vol rate/area (S/P/Bld) Average GFR for 20-29 years old = 116. Normal [facility] Comment on above: Result Comment: Support Coordinator frantz Kidney disease, GFR = <60.Kidney failure, GFR = <15.The GFR estimate is not adjusted for extreme body surface area or acute process, nor has it been validated for women or ethnic groups other than and .Testing performed at [place] [address] Performed By: #### A CBC, CHEM7F, BHCG2 ####[place] [address] Glucose mass conc 90 mg/dL Normal 70-100 [facility] Comment on above: Result Comment: NORM AL <100 mg/dLPREDIABETES 101-126 mg/dLDIABETES 126 mg/dL or higher Performed By: #### A CBC, CHEM7F, BHCG2 ####[place] [address] Potassium molar conc 3.4 mmol/L Low 3.5-5.1 [facility] Comment on above: Performed By: #### A CBC, CHEM7F, BHCG2 ####[place] [address] Sodium molar conc 137 mmol/L Normal 137-145 [facility] Comment on above: Performed By: #### A CBC, CHEM7F, BHCG2 ####[place] [address] Urea nitrogen mass conc (Bld) 4 mg/dL Low 7-20 [facility] Comment on above: Performed By: #### A CBC, CHEM7F, BHCG2 ####[place] [address] GENITAL CULTUREon 10-15-2017 GENITAL CULTURE SPECIMEN DESCRIPTION [...] Result Note: Testing performed at [place] [address] *REPORT STATUS 10/17/2017 * Result Note: FINAL * Normal [facility] Comment on above: Performed By: #### G ENC ####[place] [address] NATA PREPARATIONon 10-15-2017 NATA PREPARATION SPECIMEN DESCRIPTION VAGINAL SPECIMENKOH PREP NO YEAST SEEN * Result Note: VERIFIED BY DUP TESTING * * Result Note: Testing performed at [place] [address] *REPORT STATUS 10/15/2017 * Result Note: FINAL * Normal [facility] Comment on above: Performed By: #### K [place] ####[place] [address] US OB TRANSVAGINAL/CERVICAL LENGTHon 10-15-2017 US OB [...] weeks gestation for evaluation of anatomy. Normal [facility] WET PREPon 10-15-2017 WET PREP SPECIMEN DESCRIPTION VAGINAL SPECIMENWET PREP NO TRICHOMONAS SEEN * Result Note: NO CLUE CELLS SEEN * * Result Note: VERIFIED BY DUP TESTING * * Result Note: Testing performed at [place] [address] *REPORT STATUS 10/15/2017 * Result Note: FINAL * Normal [facility] Comment on above: Performed By: #### W ETP ####Testing performed at [place] [id number] CMP FASTINGon 09-03-2017 A:G RATIO 1.1 RATIO Low 1.3-2.2 [facility] Comment on above: Performed By: #### C MPF ####[place] [address] Albumin mass conc 3.9 G/dl Normal 3.5-5.0 [facility] Comment on above: Performed By: #### C MPF ####Testing performed at [place] [id number] Creatinine mass conc 0.8 mg/dL Normal 0.52-1.04 [facility] Comment on above: Performed By: #### C MPF ####Testing performed at [place] [id number] EST. GFR, >60 Normal [facility] Comment on above: Performed By: #### C MPF ####Testing performed at [address] [address] EST. GFR,Non >60 Normal [facility] Comment on above: Performed By: #### C MPF ####Testing performed at [address] [address] GFR/1.73 sq M predicted among non-blacks MDRD vol rate/area (S/P/Bld) Average GFR for 20-29 years old = 116. Normal [facility] Comment on above: Result Comment: Support Coordinator frantz Kidney disease, GFR = <60.Kidney failure, GFR = <15.The GFR estimate is not adjusted for extreme body surface area or acute process, nor has it been validated for women or ethnic groups other than and . Performed By: #### C MPF ####Testing performed at [address] [address] Urea nitrogen mass conc (Bld) 6 mg/dL Low 7-20 [facility] Comment on above: Performed By: #### C MPF ####Testing performed at [address] [address] ALP enzyme act/vol 75 U/L Normal 38-126 [facility] Comment on above: Performed By: #### C MPF ####Testing performed at [address] [address] ALT enzyme act/vol 18 U/L Normal 14-54 [facility] Comment on above: Performed By: #### C MPF ####Testing performed at [address] [address] AST enzyme act/vol 23 U/L Normal 15-41 [facility] Comment on above: Performed By: #### C MPF ####Testing performed at [address] [address] Bilirubin mass conc 1.2 mg/dL Normal 0.2-1.2 [facility] Comment on above: Performed By: #### C MPF ####Testing performed at [address] [address] Protein mass conc 7.4 g/dL Normal 6.3-8.2 [facility] Comment on above: Performed By: #### C MPF ####Testing performed at [address] [address] Calcium mass conc 8.9 mg/dL Normal 8.4-10.2 [facility] Comment on above: Performed By: #### C MPF ####Testing performed at [address] [address] Chloride molar conc 108 mmol/L High 98-107 [facility] Comment on above: Performed By: #### C MPF ####[place] [address] CO2 molar conc 19 mmol/L Critically low 22-30 [facility] Comment on above: Result Comment: Resu lt called to read back by: CHUCK FLETCHER 09/03/2017 @ 18:34 by DDD Performed By: #### C MPF ####Testing performed at [address] [address] Glucose mass conc 96 mg/dL Normal 70-100 [facility] Comment on above: Result Comment: NORM AL <100 mg/dLPREDIABETES 101-126 mg/dLDIABETES 126 mg/dL or higher Performed By: #### C MPF ####Testing performed at [address] [address] Potassium molar conc 3.8 mmol/L Normal 3.5-5.1 [facility] Comment on above: Performed By: #### C MPF ####Testing performed at [address] [address] Sodium molar conc 138 mmol/L Normal 137-145 [facility] Comment on above: Performed By: #### C MPF ####Testing performed at [address] [address] [address] ABDOMEN/PELVIS WITHOUT CO NTRASTon 09-03-2017 CT ABDOMEN/PELVIS WITHOUT CONTRAST EXAM TYPE: CT ABDOMEN/PELVIS WITHOUT CONTRASTEXAM DATE AND TIME: 09/03/2017 6:23 PM.INDICATION: 26 [id number] with bleeding. History of Crohn's disease. Prior [...] is predominantly decompressed. 3. Normal appendix. Normal [facility] ED NOTEon 09-03-2017 [facility] NOTES Normal [facility] NOT[facility] Normal [facility] NOTES Normal [facility] NOTES Normal [facility] ED PROVIDERon 09-03-2017 [facility] HIM CAC NOTES Normal [facility] NOTES Normal [facility] URINE HCG QUALon 09-03-2017 HCG.beta subunit ( test) Ql (U) Negative Normal NEGATIVE [facility] Comment on above: Performed By: #### U HCGT, UMAC ####[place] [address] URINE MACROSCOPICon 09-03-20 17 Bilirubin Ql (U) Negative Normal NEGATIVE [facility] Comment on above: Performed By: #### U HCGT, UMAC ####Testing performed at [address] [address] Clarity Nom (U) CLEAR Abnormal CLEAR [facility] Comment on above: Performed By: #### U HCGT, UMAC ####Testing performed at [address] [address] Color Nom (U) YELLOW Normal YELLOW [facility] Comment on above: Performed By: #### U HCGT, UMAC ####Testing performed at [place] [id number] Glucose Ql (U) Negative Normal NEGATIVE [facility] Comment on above: Performed By: #### U HCGT, UMAC ####[place] [address] pH Test strip (U) 6.0 [pH] Normal 5.0-7.0 [facility] Comment on above: Performed By: #### U HCGT, UMAC ####[place] [address] URINE HEMOGLOBIN Negative Normal NEGATIVE [facility] Comment on above: Performed By: #### U HCGT, UMAC ####[place] [address] URINE KETONE Negative Normal NEGATIVE [facility] Comment on above: Performed By: #### U HCGT, UMAC ####[place] [address] URINE LEUKOTEST Negative Normal NEGATIVE [facility] Comment on above: Performed By: #### U HCGT, UMAC ####[place] [address] URINE NITRATES Negative Normal NEGATIVE [facility] Comment on above: Performed By: #### U HCGT, UMAC ####[place] [address] URINE SPEC GRAVITY 1.015 Normal 1.010-1.025 [facility] Comment on above: Performed By: #### U HCGT, UMAC ####[place] [address] URINE TOTAL PROTEIN Negative Normal NEGATIVE [facility] Comment on above: Performed By: #### U HCGT, UMAC ####[place] [address] Urobilinogen Test strip Qn (U) 0.2 mg/dl Normal 0.2-1.0 [facility] Comment on above: Performed By: #### U HCGT, UMAC ####[place] [address] Comp Metabolic Panelon 08-28 Alanine aminotransferase (ALT) 29 U/L Normal 12-78 [facility] Comment on above: Performed By: #### H EMDF, CMP3 ####[address] [place] [address] Albumin 3.8 g/dL Normal 3.4-5.0 [facility] Comment on above: Performed By: #### H EMDF, CMP3 ####[place] [place] [address] Alkaline phosphatase (ALP) 107 U/L Normal 45-117 [facility] Comment on above: Performed By: #### H EMDF, CMP3 ####[address] [place] [address] Anion gap 10 mmol/L Normal [facility] Comment on above: Performed By: #### H EMDBrooke, CMP3 ####[address] [place] [address] Aspartate aminotransferase (AST) 16 U/L Normal 15-37 [facility] Comment on above: Performed By: #### H EMDBrooke, CMP3 ####[address]o [address] [place] [address] Bilirubin (total) 1.0 mg/dL Normal 0.2-1.0 [facility] Comment on above: Performed By: #### H SHARMILA, CMP3 ####[address] [place] [address] Calcium 9.1 mg/dL Normal 8.2-10.1 [facility] Comment on above: Performed By: #### H EMDBrooke CMP3 ####[address] [place] [address] Chloride 102 mmol/L Normal 98-109 [facility] Comment on above: Performed By: #### H EMDF, CMP3 ####[address]o [address] [place] [address] CO2 27 mmol/L Normal 21-32 [facility] Comment on above: Performed By: #### H EMDF, CMP3 ####[address]o [address] [place] [address] Creatinine 0.94 mg/dL Normal 0.55-1.40 [facility] Comment on above: Performed By: #### H EMDF, CMP3 ####Lugo [address] [place] [address] eGFR (black) mL/min/{1.73_m2} Normal >60 [facility] Comment on above: Performed By: #### H SHARMILA CMP3 ####Parish BessAvfyfo[address] [address] eGFR (non-black) mL/min/{1.73_m2} Normal >60 [facility] Comment on above: Result Comment: Sour ce- MDRD equation with creatinine calibration to IDMS(NKDEP)eGFR not recommended for drug dose adjustment Performed By: #### H SHARMILA CMP3 ####[address] [place] [address] Glucose mass conc 86 mg/dL Normal 70-100 [facility] Comment on above: Result Comment: . Performed By: #### H SHARMILA CMP3 ####Parish [address] [place] [address] Potassium molar conc 3.4 mmol/L Low 3.5-5.1 [facility] Comment on above: Performed By: #### H SHARMILA CMP3 ####[address] [place] [address] Protein 8.2 g/dL Normal 6.4-8.2 [facility] Comment on above: Performed By: #### H SHARMILA CMP3 ####[address] [place] [address] Sodium 139 mmol/L Normal 135-145 [facility] Comment on above: Performed By: #### H SHARMILA CMP3 ####Lugo [address] [place] [address] Urea nitrogen 9 mg/dL Normal 7-25 [facility] Comment on above: Performed By: #### H SHARMILA CMP3 ####Lugo L[address]jl[address] [place] [address] Hemogram w/ Autodiffon 08-28 Abs Baso Cnt 0.1 10*3/uL Normal 0.0-0.2 [facility] Comment on above: Performed By: #### H SHARMILA CMP3 ####Lugo P[address]sia[address] [place] [address] Basophils/100 WBC Auto (Bld) 0.6 % Normal [facility] Comment on above: Performed By: #### H SHARMILA CMP3 ####[facility] [place] [address] Eosinophils 0.3 10*3/uL Normal 0.0-0.5 [facility] Comment on above: Performed By: #### H SHARMILA CMP3 ####Lugo [address]qc[address] [place] [address] Eosinophils/100 leukocytes 2.9 % Normal [facility] Comment on above: Performed By: #### H SHARMILA CMP3 ####Lugo Inlbdj[address] [place] [address] Erythrocyte distribution width Auto Ratio (RBC) 13.7 % Normal 11.5-14.5 [facility] Comment on above: Performed By: #### H SHARMILA CMP3 ####[place] [id number] [place] [address] Erythrocytes (RBC) 5.35 10*6/uL High 3.80-5.20 [facility] Comment on above: Performed By: #### H SHARMILA CMP3 ####[facility] HospitalZbtxyh5789 [place] [address] Granulocytes/100 WBC (Bld) 64.4 % Normal [facility] Comment on above: Performed By: #### H SHARMILA CMP3 ####[facility] HospitalSduzed7799 [place] [address] Hematocrit (HCT) 42.8 % Normal 35.0-47.0 [facility] Comment on above: Performed By: #### H SHARMILA CMP3 ####[place] [address] [place] [address] Hemoglobin mass conc (Bld) 13.9 g/dL Normal 11.7-16.0 [facility] Comment on above: Performed By: #### H SHARIMLA CMP3 ####Lugo Mhh[address]od[address] [place] [address] Lymphocytes 2.6 10*3/uL Normal 1.0-4.3 [facility] Comment on above: Performed By: #### H SHARMILA CMP3 ####Lugo Hsdgts[address] [place] [address] Lymphocytes/100 leukocytes 25.5 % Normal [facility] Comment on above: Performed By: #### H SHARMILA CMP3 ####L[address]o [address] [place] [address] MCH 26.0 pg Normal 26.0-34.0 [facility] Comment on above: Performed By: #### H EMDBrooke, CMP3 ####Lugo Yxsk[address] [place] [address] MCHC mass conc (RBC) 32.5 % Normal 32.0-36.0 [facility] Comment on above: Performed By: #### H SHARMILA CMP3 ####L[place]o Qff[address] [place] [address] MCV 79.9 fL Normal 79.0-98.0 [facility] Comment on above: Performed By: #### H SHARMILA CMP3 ####L[address]o Jotdvv[address] [place] [address] Monocytes 0.7 10*3/uL Normal 0.0-0.8 [facility] Comment on above: Performed By: #### H EMDBrooke CMP3 ####Lugo [address] [place] [address] Monocytes/100 leukocytes 6.6 % Normal [facility] Comment on above: Performed By: #### H EMDBrooke, CMP3 ####L[address]o [address] [place] [address] Neutrophils 6.5 10*3/uL Normal 1.8-7.0 [facility] Comment on above: Performed By: #### H SHARMILA CMP3 ####L[address]o Fx[address] [place] [address] Platelet mean volume (PMV) 8.6 fL Normal 7.4-10.4 [facility] Comment on above: Performed By: #### H EMDBrooke CMP3 ####L[address]o Fxiod[address] [place] [address] Platelets 279 10*3/uL Normal 140-440 [facility] Comment on above: Performed By: #### H EMDF, CMP3 ####Lugo Lywc[address] [place] [address] WBC (Leukocytes) 10.2 10*3/uL Normal 3.6-10.7 [facility] Comment on above: Performed By: #### H EMDF, CMP3 ####L[address]o W[address]xy[address] [place] [address] Urinalysis,Macroon 7 Bilirubin (direct) Negative Normal Negative [facility] Comment on above: Performed By: #### U AMAC, UAMIC ####L[address]o [address] [place] [address] Ketone,Urine Negative Normal Negative [facility] Comment on above: Performed By: #### U AMAC, UAMIC ####Lugo [address] [place] [address] Occult Blood,Ur Negative Normal Negative [facility] Comment on above: Performed By: #### U AMAC, UAMIC ####L[place]o [address] [place] [address] Specific Yarnell,Urine 1.005 Normal 1.005-1.030 [facility] Comment on above: Performed By: #### U AMAC, UAMIC ####Lugo [id number] [place] [address] Total Protein,Urine Negative Normal Negative [facility] Comment on above: Performed By: #### U AMAC, UAMIC ####Lugo [id number] [place] [address] Urine, appearance Clear Normal Clear [facility] Comment on above: Performed By: #### U AMAC, UAMIC ####Lugo [id number] [place] [address] Urine, color Yellow Normal Lt. Yellow [facility] Comment on above: Performed By: #### U AMAC, UAMIC ####Lugo [id number] [place] [address] Urine, glucose presence NEG (Normal) Normal Negative [facility] Comment on above: Performed By: #### U AMAC, UAMIC ####Lugo [id number] [place] [address] Urine, nitrite presence Negative Normal Negative [facility] Comment on above: Performed By: #### U AMAC, UAMIC ####Lugo [id number] [place] [address] Urine, pH 7.0 [pH] Normal 5.0-8.0 [facility] Comment on above: Performed By: #### U AMAC, UAMIC ####Lugo [id number] [place] [address] Urine, urobilinogen Normal (0.2) Normal 0-1 [facility] Comment on above: Performed By: #### U AMAC, UAMIC ####Lugo [id number] [place] [address] WBC (Leukocytes) Trace Normal Negative [facility] Comment on above: Performed By: #### U AMAC, UAMIC ####Lugo [id number] [place] [address] Urinalysis,Microscopicon Urine, bacteria in sediment Many (51-100) Normal Negative [facility] Comment on above: Performed By: #### U AMAC, UAMIC ####Lugo [address] [place] [address] Urine, epithelial cells in sediment 6-10 Normal 3-5 [facility] Comment on above: Performed By: #### U AMAC, UAMIC ####Lugo [id number] [place] [address] Urine, erythrocytes in sediment by area 0-2 Normal 0-2 [facility] Comment on above: Performed By: #### U AMAC, UAMIC ####Lugo [address] [place] [address] Urine, leukocytes in sedmiment 0-2 Normal 0-5 [facility] Comment on above: Performed By: #### U AMAC, UAMIC ####Lugo [id number] [place] [address] Influenza virus A and B and SARS-CoV-2 (COVID-19) Ag panel - Upper respiratory specim SARS-CoV-2 (COVID-19) RNA JYOTI+probe Ql (Resp) [facility] Work Phone: Vital Signs Date Time Vital Sign Value Performing Clinician Facility 06-24-2025 13:43-0400 Body height 162.6 cm Zoë Santana MD Work Phone: [facility] 06-24-2025 13:43-0400 Body mass index (BMI) [Ratio] 53.19 kg/m2 Zoë Santana MD Work Phone: [facility] 06-24-2025 13:43-0400 Body weight 140.57 kg Zoë Santana MD Work Phone: [facility] 06-24-2025 13:43-0400 Diastolic blood pressure 79 mm[Hg] Zoë Santana MD Work Phone: 5(476)029-879543 [place] [address] 06-24-2025 13:43-0400 Heart rate 87 /min Zoë Santana MD Work Phone: 6(922)508-456143 [place] [address] 06-24-2025 13:43-0400 SaO2% (BldA) [Mass fraction] 98 % Zoë Santana MD Work Phone: 5(466)320-809543 [place] [address] 06-24-2025 13:43-0400 Systolic blood pressure 144 mm[Hg] Zoë Santana MD Work Phone: 0(220)746-817073 [address] 05-13-2025 12:46-0400 Body height 162.6 cm Zoë Santana MD Work Phone: 2(826)000-715143 [place] [address] 05-13-2025 12:46-0400 Body mass index (BMI) [Ratio] 52.7 kg/m2 Zëo Santana MD Work Phone: 2(749)752-468843 [place] [address] 05-13-2025 12:46-0400 Body weight 139.25 kg Zoë Santana MD Work Phone: 8(982)280-144343 [place] [address] 05-13-2025 12:46-0400 Diastolic blood pressure 76 mm[Hg] Zoë Santana MD Work Phone: 0(438)565-861643 [place] [address] 05-13-2025 12:46-0400 Heart rate 62 /min Zoë Santana MD Work Phone: 7(760)287-515843 [place] [address] 05-13-2025 12:46-0400 SaO2% (BldA) [Mass fraction] 96 % Zoë Santana MD Work Phone: 1(545)472-565543 [place] [address] 05-13-2025 12:46-0400 Systolic blood pressure 128 mm[Hg] Zoë Santana MD Work Phone: [facility] 03-10-2025 12:49-0400 Body mass index (BMI) [Ratio] 52.03 kg/m2 Carline Pollack MD Work Phone: [facility] 03-10-2025 12:49-0400 Body weight 137.49 kg Carline Pollack MD Work Phone: [facility] 03-10-2025 12:49-0400 Diastolic blood pressure 77 mm[Hg] Carline Pollack MD Work Phone: [facility] 03-10-2025 12:49-0400 Heart rate 110 /min Carline Pollack MD Work Phone: [facility] 03-10-2025 12:49-0400 Systolic blood pressure 128 mm[Hg] Carline Pollack MD Work Phone: [facility] 03-03-2025 11:38-0400 Body height 162.6 cm Zoë Santana MD Work Phone: [facility] 03-03-2025 11:38-0400 Body mass index (BMI) [Ratio] 52.18 kg/m2 Zoë Santana MD Work Phone: [facility] 03-03-2025 11:38-0400 Body weight 137.89 kg Zoë Santana MD Work Phone: [facility] 03-03-2025 11:38-0400 Diastolic blood pressure 83 mm[Hg] Zoë Santana MD Work Phone: [facility] 03-03-2025 11:38-0400 Heart rate 93 /min Zoë Santana MD Work Phone: [facility] 03-03-2025 11:38-0400 SaO2% (BldA) [Mass fraction] 96 % Zoë Santana MD Work Phone: [facility] 03-03-2025 11:38-0400 Systolic blood pressure 142 mm[Hg] Zoë Santana MD Work Phone: [facility] 03-01-2025 17:52-0400 Body temperature 97.9 [degF] Jose Guadalupe Mills MD Work Phone: [facility] 03-01-2025 17:52-0400 Diastolic blood pressure 82 mm[Hg] Jose Guadalupe Mills MD Work Phone: [facility] 03-01-2025 17:52-0400 Heart rate 102 /min Jose Guadalupe Mills MD Work Phone: [facility] 03-01-2025 17:52-0400 Respiratory rate 16 /min Jose Guadalupe Mills MD Work Phone: [facility] 03-01-2025 17:52-0400 SaO2% (BldA) [Mass fraction] 100 % Jose Guadalupe Mills MD Work Phone: [facility] 03-01-2025 17:52-0400 Systolic blood pressure 131 mm[Hg] Jose Guadalupe Mills MD Work Phone: [facility] 03-01-2025 16:42-0400 Body height 162.6 cm Jose Guadalupe Mills MD Work Phone: [facility] 03-01-2025 16:42-0400 Body mass index (BMI) [Ratio] 52.98 kg/m2 Jose Guadalupe Mills MD Work Phone: [facility] 03-01-2025 16:42-0400 Body weight 140 kg Jose Guadalupe Mills MD Work Phone: [facility] 02-16-2025 14:11-0400 Body temperature 98.4 [degF] Kelli Matthews MD Work Phone: [facility] 02-16-2025 14:11-0400 Diastolic blood pressure 79 mm[Hg] Kelli Matthews MD Work Phone: [facility] 02-16-2025 14:11-0400 Heart rate 96 /min Kelli Matthews MD Work Phone: [facility] 02-16-2025 14:11-0400 Respiratory rate 20 /min Kelli Matthews MD Work Phone: [facility] 02-16-2025 14:11-0400 SaO2% (BldA) [Mass fraction] 99 % Kelli Matthews MD Work Phone: [facility] 02-16-2025 14:11-0400 Systolic blood pressure 146 mm[Hg] Kelli Matthews MD Work Phone: [facility] 02-16-2025 14:09-0400 Body height 163.8 cm Kelli Matthews MD Work Phone: [facility] 02-16-2025 14:09-0400 Body mass index (BMI) [Ratio] 50.67 kg/m2 Kelli Matthews MD Work Phone: [facility] 02-16-2025 14:09-0400 Body weight 136 kg Kelli Matthews MD Work Phone: [facility] 02-15-2025 10:20-0400 Body temperature 98.2 [degF] Earl Colorado MD Work Phone: [facility] 02-15-2025 10:20-0400 Diastolic blood pressure 71 mm[Hg] Earl Colorado MD Work Phone: [facility] 02-15-2025 10:20-0400 Heart rate 88 /min Earl Colorado MD Work Phone: [facility] 02-15-2025 10:20-0400 Respiratory rate 20 /min Earl Colorado MD Work Phone: [facility] 02-15-2025 10:20-0400 SaO2% (BldA) [Mass fraction] 99 % Earl Colorado MD Work Phone: [facility] 02-15-2025 10:20-0400 Systolic blood pressure 130 mm[Hg] Earl Colorado MD Work Phone: [facility] 02-09-2025 11:31-0400 Body mass index (BMI) [Ratio] 52.53 kg/m2 Earl Colorado MD Work Phone: [facility] 02-09-2025 11:31-0400 Body weight 141 kg Earl Colorado MD Work Phone: [facility] 02-08-2025 19:26-0400 Body temperature 37 Earl Colorado MD Work Phone: [facility] 02-08-2025 19:10-0400 Body temperature 37.0 degrees Celsius EARL COLORADO [facility] Comment on above: Performed By: #### [id number] #### QUIN Simon ([id number]) [facility] ([facility]) [address] [place] [address] 02-08-2025 18:10-0400 Body height 163.8 cm Earl Colorado MD Work Phone: [facility] 01-15-2025 06:35-0400 Body temperature 97.9 [degF] Earl Colorado MD Work Phone: [facility] 01-15-2025 06:35-0400 Diastolic blood pressure 55 mm[Hg] Earl Colorado MD Work Phone: [facility] 01-15-2025 06:35-0400 Heart rate 62 /min Earl Colorado MD Work Phone: [facility] 01-15-2025 06:35-0400 Respiratory rate 16 /min Earl Colorado MD Work Phone: [facility] 01-15-2025 06:35-0400 SaO2% (BldA) [Mass fraction] 99 % Earl Colorado MD Work Phone: [facility] 01-15-2025 06:35-0400 Systolic blood pressure 115 mm[Hg] Earl Colorado MD Work Phone: [facility] 01-15-2025 02:07-0400 Body height 162.6 cm Earl Colorado MD Work Phone: [facility] 01-15-2025 02:07-0400 Body mass index (BMI) [Ratio] 50.71 kg/m2 Earl Colorado MD Work Phone: 2(183)278-941561 [place] [address] 01-15-2025 02:07-0400 Body weight 134 kg Earl Colorado MD Work Phone: 9(843)437-102806 [address] 01-08-2025 19:59-0500 Body temperature 97.9 [degF] Earl Colorado MD Work Phone: 8(601)699-809261 [place] [address] 01-08-2025 19:59-0500 Diastolic blood pressure 81 mm[Hg] Earl Colorado MD Work Phone: [facility] 01-08-2025 19:59-0500 Heart rate 88 /min Earl Colorado MD Work Phone: [facility] 01-08-2025 19:59-0500 Respiratory rate 17 /min Earl Colorado MD Work Phone: [facility] 01-08-2025 19:59-0500 SaO2% (BldA) [Mass fraction] 98 % Earl Colorado MD Work Phone: [facility] 01-08-2025 19:59-0500 Systolic blood pressure 133 mm[Hg] Earl Colorado MD Work Phone: 7(331)487-562861 [place] [address] 01-08-2025 15:49-0500 Body height 162.6 cm Earl Colorado MD Work Phone: 6(946)258-353361 [place] [address] 01-08-2025 15:49-0500 Body mass index (BMI) [Ratio] 50.37 kg/m2 Earl Colorado MD Work Phone: [facility] 01-08-2025 15:49-0500 Body weight 133.1 kg Earl Colorado MD Work Phone: [facility] 12-25-2024 11:19-0500 Body temperature 98.1 [degF] Daisy Crews MD Work Phone: [facility] 12-25-2024 11:19-0500 Diastolic blood pressure 84 mm[Hg] Daisy Crews MD Work Phone: [facility] 12-25-2024 11:19-0500 Heart rate 81 /min Daisy Crews MD Work Phone: [facility] 12-25-2024 11:19-0500 Respiratory rate 19 /min Daisy Crews MD Work Phone: [facility] 12-25-2024 11:19-0500 SaO2% (BldA) [Mass fraction] 100 % Daisy Crews MD Work Phone: [facility] 12-25-2024 11:19-0500 Systolic blood pressure 137 mm[Hg] Daisy Crews MD Work Phone: [facility] 12-23-2024 16:45-0500 Body height 163.8 cm Daisy Crews MD Work Phone: [facility] 12-23-2024 16:45-0500 Body mass index (BMI) [Ratio] 48.32 kg/m2 Daisy Crews MD Work Phone: [facility] 12-23-2024 16:45-0500 Body weight 129.7 kg Daisy Crews MD Work Phone: [facility] 11-25-2024 13:09-0500 Body temperature 97.81 [degF] Sugey Pride MD Work Phone: [facility] 11-25-2024 13:09-0500 Body weight 122.02 kg Sugey Pride MD Work Phone: [facility] 11-25-2024 13:09-0500 Diastolic blood pressure 74 mm[Hg] Sugey Pride MD Work Phone: [facility] 11-25-2024 13:09-0500 Heart rate 90 /min Sugey Pride MD Work Phone: [facility] 11-25-2024 13:09-0500 Systolic blood pressure 116 mm[Hg] Sugey Pride MD Work Phone: [facility] 02-22-2024 17:52-0400 Body temperature 97.3 [degF] [facility] 02-22-2024 17:52-0400 Diastolic blood pressure 96 mm[Hg] [facility] 02-22-2024 17:52-0400 Heart rate 79 /min [facility] 02-22-2024 17:52-0400 Respiratory rate 16 /min [facility] 02-22-2024 17:52-0400 SaO2% (BldA) [Mass fraction] 97 % [facility] 02-22-2024 17:52-0400 Systolic blood pressure 121 mm[Hg] [facility] 02-22-2024 14:10-0400 Body height 163.83 cm [facility] 02-22-2024 14:10-0400 Body mass index (BMI) [Ratio] 42.8 kg/m2 [facility] 02-22-2024 14:10-0400 Body weight 114.94 kg [facility] 12-05-2023 11:46-0500 Diastolic blood pressure 72 mm[Hg] [facility] 12-05-2023 11:46-0500 Heart rate 84 /min [facility] 12-05-2023 11:46-0500 Respiratory rate 16 /min [facility] 12-05-2023 11:46-0500 SaO2% (BldA) [Mass fraction] 98 % [facility] 12-05-2023 11:46-0500 Systolic blood pressure 138 mm[Hg] [facility] 12-05-2023 07:38-0500 Body height 162.99 cm [facility] 12-05-2023 07:38-0500 Body mass index (BMI) [Ratio] 46.8 kg/m2 [facility] 12-05-2023 07:38-0500 Body temperature 97.8 [degF] [facility] 12-05-2023 07:38-0500 Body weight 124.51 kg [facility] 12-04-2023 16:09-0500 Body height 162.56 cm [facility] 12-04-2023 16:09-0500 Body mass index (BMI) [Ratio] 47.1 kg/m2 [facility] 12-04-2023 16:09-0500 Body temperature 98.1 [degF] [facility] 12-04-2023 16:09-0500 Body weight 124.51 kg [facility] 12-04-2023 16:09-0500 Diastolic blood pressure 85 mm[Hg] [facility] 12-04-2023 16:09-0500 Heart rate 68 /min [facility] 12-04-2023 16:09-0500 Respiratory rate 16 /min [facility] 12-04-2023 16:09-0500 SaO2% (BldA) [Mass fraction] 99 % [facility] 12-04-2023 16:09-0500 Systolic blood pressure 143 mm[Hg] [facility] 11-17-2023 04:51-0500 Diastolic blood pressure 78 mm[Hg] [facility] 11-17-2023 04:51-0500 Systolic blood pressure 113 mm[Hg] [facility] 11-17-2023 03:51-0500 SaO2% (BldA) [Mass fraction] 98 % [facility] 11-17-2023 02:59-0500 Body temperature 97.9 [degF] [facility] 11-17-2023 02:59-0500 Heart rate 77 /min [facility] 11-17-2023 02:59-0500 Respiratory rate 16 /min [facility] 11-17-2023 02:54-0500 Body height 162.56 cm [facility] 11-17-2023 02:54-0500 Body mass index (BMI) [Ratio] 50.1 kg/m2 [facility] 11-17-2023 02:54-0500 Body weight 132.5 kg [facility] 10-25-2023 14:57-0500 Body height 162.56 cm [facility] 10-25-2023 14:57-0500 Body mass index (BMI) [Ratio] 50 kg/m2 [facility] 10-25-2023 14:57-0500 Body temperature 97.7 [degF] [facility] 10-25-2023 14:57-0500 Body weight 132.16 kg [facility] 10-25-2023 14:57-0500 Diastolic blood pressure 85 mm[Hg] [facility] 10-25-2023 14:57-0500 Heart rate 81 /min [facility] 10-25-2023 14:57-0500 Respiratory rate 16 /min [facility] 10-25-2023 14:57-0500 SaO2% (BldA) [Mass fraction] 100 % [facility] 10-25-2023 14:57-0500 Systolic blood pressure 147 mm[Hg] [facility] 09-05-2023 07:00-0400 Diastolic blood pressure 88 mm[Hg] [facility] 09-05-2023 07:00-0400 Systolic blood pressure 145 mm[Hg] [facility] 09-05-2023 05:50-0400 Respiratory rate 18 /min [facility] 09-05-2023 05:50-0400 SaO2% (BldA) [Mass fraction] 98 % [facility] 09-05-2023 03:56-0400 Body mass index (BMI) [Ratio] 49.7 kg/m2 [facility] 09-05-2023 03:56-0400 Body temperature 98.1 [degF] [facility] 09-05-2023 03:56-0400 Body weight 131.4 kg [facility] 09-05-2023 03:56-0400 Heart rate 80 /min [facility] 06-05-2023 07:10-0400 Diastolic blood pressure 90 mm[Hg] [facility] 06-05-2023 07:10-0400 Heart rate 50 /min [facility] 06-05-2023 07:10-0400 Respiratory rate 16 /min [facility] 06-05-2023 07:10-0400 SaO2% (BldA) [Mass fraction] 100 % [facility] 06-05-2023 07:10-0400 Systolic blood pressure 150 mm[Hg] [facility] 06-05-2023 04:33-0400 Body height 162.56 cm [facility] 06-05-2023 04:33-0400 Body mass index (BMI) [Ratio] 46.3 kg/m2 [facility] 06-05-2023 04:33-0400 Body temperature 98.9 [degF] [facility] 06-05-2023 04:33-0400 Body weight 122.46 kg [facility] 05-17-2023 16:27-0400 Respiratory rate 18 /min [facility] 05-17-2023 15:25-0400 Body mass index (BMI) [Ratio] 45.8 kg/m2 [facility] 05-17-2023 15:25-0400 Body temperature 98.4 [degF] [facility] 05-17-2023 15:25-0400 Body weight 120.97 kg [facility] 05-17-2023 15:25-0400 Diastolic blood pressure 96 mm[Hg] [facility] 05-17-2023 15:25-0400 Heart rate 83 /min [facility] 05-17-2023 15:25-0400 SaO2% (BldA) [Mass fraction] 100 % [facility] 05-17-2023 15:25-0400 Systolic blood pressure 134 mm[Hg] [facility] 01-21-2023 17:09-0400 Respiratory rate 18 /min No Primary Care Physician [facility] 01-21-2023 15:10-0400 Body height 162.56 cm No Primary Care Physician [facility] 01-21-2023 15:10-0400 Body mass index (BMI) [Ratio] 46.7 kg/m2 No Primary Care Physician [facility] 01-21-2023 15:10-0400 Body temperature 96.3 [degF] No Primary Care Physician [facility] 01-21-2023 15:10-0400 Body weight 123.61 kg No Primary Care Physician [facility] 01-21-2023 15:10-0400 Diastolic blood pressure 78 mm[Hg] No Primary Care Physician [facility] 01-21-2023 15:10-0400 Heart rate 77 /min No Primary Care Physician [facility] 01-21-2023 15:10-0400 SaO2% (BldA) [Mass fraction] 100 % No Primary Care Physician [facility] 01-21-2023 15:10-0400 Systolic blood pressure 136 mm[Hg] No Primary Care Physician [facility] 12-14-2022 23:31-0500 Diastolic blood pressure 72 mm[Hg] No Primary Care Physician [facility] 12-14-2022 23:31-0500 Heart rate 68 /min No Primary Care Physician [facility] 12-14-2022 23:31-0500 Respiratory rate 18 /min No Primary Care Physician [facility] 12-14-2022 23:31-0500 SaO2% (BldA) [Mass fraction] 100 % No Primary Care Physician [facility] 12-14-2022 23:31-0500 Systolic blood pressure 137 mm[Hg] No Primary Care Physician [facility] 12-14-2022 19:15-0500 Body height 162.56 cm No Primary Care Physician [facility] 12-14-2022 19:15-0500 Body mass index (BMI) [Ratio] 48 kg/m2 No Primary Care Physician [facility] 12-14-2022 19:15-0500 Body temperature 96.9 [degF] No Primary Care Physician [facility] 12-14-2022 19:15-0500 Body weight 127 kg No Primary Care Physician [facility] 10-26-2022 14:01-0500 Heart rate 65 /min No Primary Care Physician [facility] 10-26-2022 14:01-0500 Respiratory rate 18 /min No Primary Care Physician [facility] 10-26-2022 14:01-0500 SaO2% (BldA) [Mass fraction] 100 % No Primary Care Physician [facility] 10-26-2022 12:33-0500 Diastolic blood pressure 85 mm[Hg] No Primary Care Physician [facility] 10-26-2022 12:33-0500 Systolic blood pressure 114 mm[Hg] No Primary Care Physician [facility] 10-26-2022 10:01-0500 Body height 162.56 cm No Primary Care Physician [facility] Work Phone: 10-26-2022 10:01-0500 Body mass index (BMI) [Ratio] 48 kg/m2 No Primary Care Physician [facility] 10-26-2022 10:01-0500 Body temperature 96.8 [degF] No Primary Care Physician [facility] 10-26-2022 10:01-0500 Body weight 127 kg No Primary Care Physician [facility] 09-06-2022 18:51-0400 Diastolic blood pressure 88 mm[Hg] DR SALIMA CONSTANTINO MD [facility] 09-06-2022 18:51-0400 Heart rate 90 /min DR SALIMA CONSTANTINO MD [facility] 09-06-2022 18:51-0400 Respiratory rate 18 /min DR SALIMA CONSTANTINO MD [facility] 09-06-2022 18:51-0400 Systolic blood pressure 140 mm[Hg] DR SALIMA CONSTANTINO MD [facility] 09-06-2022 17:04-0400 Body temperature 98.96 [degF] DR SALIMA CONSTANTINO MD [facility] 09-06-2022 17:04-0400 Diastolic blood pressure 90 mm[Hg] DR SALIMA CONSTANTINO MD [facility] 09-06-2022 17:04-0400 Heart rate 93 /min DR SALIMA CONSTANTINO MD [facility] 09-06-2022 17:04-0400 Respiratory rate 18 /min DR SALIMA CONSTANTINO MD [facility] 09-06-2022 17:04-0400 Systolic blood pressure 151 mm[Hg] DR SALIMA CONSTANTINO MD [facility] 08-18-2022 21:28-0400 Body temperature 101 [degF] No Primary Care Physician [facility] 08-18-2022 21:03-0400 Diastolic blood pressure 76 mm[Hg] [facility] 08-18-2022 21:03-0400 Heart rate 78 /min [facility] 08-18-2022 21:03-0400 Respiratory rate 16 /min [facility] 08-18-2022 21:03-0400 SaO2% (BldA) [Mass fraction] 99 % [facility] 08-18-2022 21:03-0400 Systolic blood pressure 128 mm[Hg] [facility] 08-18-2022 16:21-0400 Body temperature 98.7 [degF] [facility] Work Phone: 08-18-2022 16:20-0400 Body height 162.56 cm [facility] Work Phone: 08-18-2022 16:20-0400 Body mass index (BMI) [Ratio] 46.3 kg/m2 [facility] 08-18-2022 16:20-0400 Body weight 122.4 kg [facility] 10-07-2018 12:45-0500 BMI (Body Mass Index) 46.59 kg/m2 [facility] Work Phone: 10-07-2018 12:45-0500 Body Temperature 97.59 [degF] [facility] Work Phone: 10-07-2018 12:45-0500 BP Diastolic 101 mm[Hg] [facility] Work Phone: 10-07-2018 12:45-0500 BP Systolic 141 mm[Hg] [facility] Work Phone: 10-07-2018 12:45-0500 Height 161.3 cm [facility] Work Phone: 10-07-2018 12:45-0500 Pulse (Heart Rate) 98 /min [facility] Work Phone: 10-07-2018 12:45-0500 Respiratory Rate 18 /min [facility] Work Phone: 10-07-2018 12:45-0500 Weight 121.2 kg [facility] Work Phone: 09-08-2018 15:52-0500 Respiratory Rate 16 /min Juan Pastor [facility] 09-08-2018 11:00-0500 Body Temperature 99.19 [degF] [facility] 11:00-0500 BP Diastolic 72 mm[Hg] Juan Pastor [facility] 09-08-2018 11:00-0500 BP Systolic 109 mm[Hg] Juan Pastor [facility] 09-08-2018 11:00-0500 Pulse (Heart Rate) 122 /min Juan Pastor [facility] 09-08-2018 11:00-0500 Pulse Oximetry 94 % Juan [facility] Encounters Encounter Date Encounter Type Care Provider Facility Start: 09-10-2025 End: 09-10-2025 ambulatory [facility] Start: 08-27-2025 End: 08-27-2025 ambulatory [facility] Start: 08-13-2025 End: 08-13-2025 ambulatory [facility] [facility] Start: 08-12-2025 End: 08-12-2025 ambulatory [facility] Start: 08-05-2025 End: 08-05-2025 ambulatory [facility] Start: 07-30-2025 End: 07-30-2025 ambulatory [facility] Start: 07-24-2025 End: 07-24-2025 ambulatory [facility] Start: 07-17-2025 End: 07-17-2025 ambulatory [facility] Start: 07-16-2025 End: 07-16-2025 ambulatory [facility] Start: 07-09-2025 End: 07-09-2025 ambulatory [facility] Start: 07-03-2025 End: 07-03-2025 ambulatory [facility] Start: 06-26-2025 End: 06-26-2025 ambulatory [facility] Start: 06-24-2025 End: 06-24-2025 Office outpatient visit 25 minutes Zoë Santana MD Work Phone: [facility] Internal Medicine Comment on above: Morbid obesity with BMI of 50.0-59.9, adult (Multi) (Primary Dx); Type 2 diabetes mellitus without complication, with long-term current use of insulin; Other physical and mental strain related to work; Other insomnia; Hypertension associated with diabetes; Skin candidiasis Start: 06-24-2025 End: 06-24-2025 ambulatory [facility] Ambulatory Start: 06-23-2025 ambulatory Amberly Ferraro y:[facility] Start: 06-22-2025 End: 06-22-2025 Emergency department patient visit [facility] Facility:[facility] Start: 06-17-2025 End: 06-17-2025 ambulatory [facility] Start: 06-09-2025 End: 06-09-2025 ambulatory [facility] Start: 06-04-2025 ambulatory [facility] Start: 06-04-2025 End: 06-04-2025 Emergency department patient visit [facility] Facility:[facility] Start: 06-02-2025 End: 06-02-2025 ambulatory [facility] Start: 05-20-2025 End: 05-20-2025 Emergency department patient visit Major Mejia Facility:[facility] Start: 05-13-2025 End: 05-13-2025 Office outpatient visit 25 minutes Zoë Santana MD Work Phone: [facility] Internal Medicine Comment on above: Type 2 diabetes alix itus without complication, with long-term current use of insulin (Primary Dx); Benign essential HTN; Other insomnia; Healthcare maintenance; Hypomagnesemia Start: 05-13-2025 End: 05-13-2025 Patient encounter status Zoë Santana MD Work Phone: [facility] Work Phone: Start: 05-13-2025 End: 05-13-2025 ambulatory [facility] Ambulatory Start: 05-13-2025 End: 05-13-2025 Encounter for general adult medical examination without abnormal findings [facility] Ambulatory Start: 04-30-2025 End: 04-30-2025 ambulatory [facility] Start: 04-23-2025 End: 04-23-2025 ambulatory [facility] Start: 04-14-2025 End: 04-14-2025 ambulatory [facility] Start: 04-07-2025 End: 04-07-2025 ambulatory No Primary Care Physician Facility:[facility] Start: 04-02-2025 End: 04-02-2025 ambulatory [facility] Start: 03-24-2025 End: 03-24-2025 ambulatory No Primary Care Physician Facility:[facility] Start: 03-18-2025 End: 03-18-2025 ambulatory [facility] Ambulatory Start: 03-18-2025 End: 03-18-2025 ambulatory [facility] Start: 03-10-2025 End: 03-10-2025 Office outpatient visit 25 minutes Carline Pollack MD Work Phone: [facility] Comment on above: Encounter for postpa rtum visit (Primary Dx); History of gestational diabetes; Counseling for initiation of control method; History of pre-eclampsia; Bilateral lower extremity edema Start: 03-10-2025 End: 03-10-2025 ambulatory SHAKEELJINA Pathak RANJEET [facility] Start: 03-05-2025 End: 03-05-2025 ambulatory [facility] Facility:[facility] Start: 03-03-2025 End: 03-03-2025 Office outpatient new 45 minutes Zoë Santana MD Work Phone: [facility] Internal Medicine Comment on above: Benign essential HTN (Primary Dx); Fatigue, unspecified type; Weight gain; History of gestational diabetes; Anemia, unspecified type; Screening for hyperlipidemia; Attention or concentration deficit; Leg edema; Gastroesophageal reflux disease without esophagitis; psychosis (Multi); Moderate depressive disorder; Anxiety Start: 03-03-2025 End: 03-03-2025 ambulatory [facility] Ambulatory Start: 03-01-2025 End: 03-01-2025 ambulatory JOSE GUADALUPE MILLS [facility] Start: 03-01-2025 End: 03-01-2025 Subsequent hospital visit by physician Jose Guadalupe Mills MD Work Phone: [facility] Obstetrics and Gynecology Comment on above: Severe preeclampsia, third trimester (HHS-HCC) (Primary Dx); Insulin controlled gestational diabetes mellitus (GDM) in second trimester (HHS-HCC) Start: 02-24-2025 End: 02-24-2025 ambulatory No Primary Care Physician Facility:[facility] Start: 02-19-2025 End: 02-19-2025 ambulatory Jaida Goodland Facility:[facility] Start: 02-16-2025 End: 02-16-2025 ambulatory KELLI MATTHEWS [facility] Start: 02-16-2025 End: 02-16-2025 Subsequent hospital visit by physician Kelli Matthews MD Work Phone: [facility] Obstetrics and Gynecology Start: 02-10-2025 ambulatory Marisol Nuiqsut Facility :[facility] Start: 02-08-2025 End: 02-15-2025 Evaluation and management of inpatient Earl Colorado MD Work Phone: [place] [phone] Comment on above: Severe preeclampsia, third trimester (HHS-HCC) (Primary Dx); care following vaginal delivery ([facility]); Depression affecting in third trimester, antepartum ([facility]); Gastroesophageal reflux disease, unspecified whether esophagitis present Start: 02-05-2025 End: 02-05-2025 Subsequent hospital visit by physician Bridger Ovallet200 Obgynimg Ultrasound 4 [facility] Comment on above: Gestational hyperten sal, second trimester ([facility]); Insulin controlled gestational diabetes mellitus (GDM) in third trimester ([facility]); Gestational hypertension w/o significant proteinuria in 3rd trimester ([facility]) Start: 02-05-2025 End: 02-05-2025 ambulatory [facility] Start: 02-03-2025 ambulatory No Primary Car e Physician Facility:[facility] Start: 01-29-2025 End: 01-29-2025 Subsequent hospital visit by physician Bridger Ovallet200 [facility] Comment on above: Gestational hyperten sal, second trimester ([facility]); Insulin controlled gestational diabetes mellitus (GDM) in third trimester ([facility]) Start: 01-29-2025 End: 01-29-2025 ambulatory [facility] Start: 01-29-2025 End: 01-29-2025 ambulatory Jaida Fiore [facility] Start: 01-27-2025 End: 01-27-2025 ambulatory No Primary Care Physician [facility] Start: 01-22-2025 End: 01-22-2025 Subsequent hospital visit by physician Bridger Ovallet200 Obgynimg Ultrasound 3 [facility] Comment on above: Gestational hyperten sal, second trimester ([facility]); Insulin controlled gestational diabetes mellitus (GDM) in third trimester ([facility]); Gestational hypertension w/o significant proteinuria in 3rd trimester ([facility]) Start: 01-22-2025 End: 01-22-2025 ambulatory [facility] Start: 01-20-2025 End: 01-20-2025 ambulatory YULIYA [facility] Ambulatory Start: 01-15-2025 End: 01-15-2025 Subsequent hospital visit by physician Bridger Lemons [facility] 3 [facility] Comment on above: Screening, , for anatomic survey (HHS-HCC); Obesity affecting in third trimester (HHS-HCC); Gestational diabetes mellitus (GDM) requiring insulin (HHS-HCC); Gestational hypertension w/o significant proteinuria in 3rd trimester (HHS-HCC) Start: 01-15-2025 End: 01-15-2025 ambulatory EARL Amos STANISLAV [facility] Start: 01-15-2025 End: 01-15-2025 ambulatory EARL Amos [facility] Start: 01-15-2025 End: 01-15-2025 Evaluation and management of inpatient Earl Colorado MD Work Phone: [place] [phone] Obstetrics and Gynecology Start: 01-13-2025 End: 01-13-2025 ambulatory No Primary Care Physician Facility:[facility] Start: 01-08-2025 End: 01-08-2025 ambulatory EARL COLORADO [facility] Start: 01-08-2025 End: 01-08-2025 Evaluation and management of inpatient Earl Colorado MD Work Phone: [place] [phone] Obstetrics and Gynecology Comment on above: Gestational hyperten sal, second trimester ([facility]) (Primary Dx) Start: 01-08-2025 End: 01-08-2025 Subsequent hospital visit by physician Bridger Lemons [facility] 4 [facility] Comment on above: Screening, , for anatomic survey (HHS-HCC); Gestational hypertension (HHS-HCC); Obesity affecting (HHS-HCC); Gestational diabetes mellitus (GDM); AMA (advanced maternal age) multigravida 35+ (HHS-HCC) Start: 01-08-2025 End: 01-08-2025 ambulatory JOSE GUADALUPE GUPTA [facility] Start: 01-06-2025 End: 01-06-2025 ambulatory Amberly Laboy Facility:[facility] Start: 01-02-2025 End: 01-02-2025 ambulatory Jaida Bell [facility] Start: 01-01-2025 End: 01-01-2025 Subsequent hospital visit by physician Bridger Lemons Obgyisabelmg Ultrasound 3 [facility] [place] Comment on above: Screening, , for anatomic survey ([facility]); Encounter for follow-up ultrasound of anatomy; Gestational diabetes requiring insulin ([facility]); AMA (advanced maternal age) multigravida 35+ ([facility]); Obesity affecting ([facility]) Start: 01-01-2025 End: 01-01-[address] [facility] Start: 12-23-2024 End: 12-25-2024 Evaluation and management of inpatient Daisy Crews MD Work Phone: [place] [phone] Comment on above: Insulin controlled g estational diabetes mellitus (GDM) in second trimester ([facility]) (Primary Dx); Hyperglycemia in ([facility]); Gestational hypertension, second trimester ([facility]) Start: 12-17-2024 End: 12-17-2024 ambulatory Hemal Salinas [facility] Start: 12-17-2024 End: 12-17-2024 ambulatory Hemal Salinas Facility:[facility] Start: 12-03-2024 End: 12-03-2024 ambulatory Jaida Fiore [facility] Start: 12-01-2024 End: 12-01-2024 ambulatory Amberly Laboy [facility] Start: 11-25-2024 End: 11-25-2024 Initial care visit Sugey Pride MD Work Phone: [facility] Comment on above: History of d elivery (Primary Dx) Start: 11-25-2024 End: 11-25-2024 ambulatory SUGEY PRIDE [facility] Start: 11-21-2024 End: 11-21-2024 ambulatory Jaida Fiore [facility] Start: 11-18-2024 End: 11-18-2024 ambulatory Hemal Salinas [facility] Start: 11-14-2024 End: 11-14-2024 ambulatory MAJOR HERNANDEZ [facility] Start: 11-13-2024 End: 11-13-2024 Emergency department patient visit Major Mejia Facility:[facility] Start: 10-27-2024 End: 10-27-2024 ambulatory MARYANA WILLIS [facility] Start: 10-24-2024 End: 10-24-2024 ambulatory Amberly Haas [facility] Start: 10-24-2024 End: 10-24-2024 ambulatory Jaida Macarena [facility] Start: 10-15-2024 End: 10-15-2024 ambulatory No Primary Care Physician Facility:[facility] Start: 10-13-2024 End: 10-14-2024 ambulatory Mayela GRULLON Facility:[facility] Start: 10-10-2024 End: 10-10-2024 ambulatory Amberly Haas [facility] Start: 10-09-2024 End: 10-10-2024 ambulatory No Primary Care Physician Facility:[facility] Start: 10-09-2024 End: 10-09-2024 Emergency department patient visit Santi Shaver Facility:[facility] Start: 10-01-2024 ambulatory Leticia Bergman [facility] cility:[facility] Start: 09-30-2024 End: 09-30-2024 ambulatory CLARKE [facility] Start: 09-25-2024 End: 09-25-2024 ambulatory Leticia STONE [facility] Start: 09-25-2024 End: 09-25-2024 ambulatory Marisol Elliott Facility:[facility] Start: 03-03-2024 End: 03-03-2024 ambulatory [facility] Work Phone: Start: 03-03-2024 End: 03-03-2024 Patient encounter procedure [facility] Work Phone: Start: 02-22-2024 End: 02-22-2024 Emergency department patient visit [facility] Work Phone: Start: 12-05-2023 End: 12-05-2023 Emergency department patient visit [facility] Work Phone: Start: 12-04-2023 End: 12-04-2023 Emergency department patient visit [facility] Work Phone: Start: 11-17-2023 End: 11-17-2023 Emergency department patient visit [facility] Work Phone: Start: 10-25-2023 End: 10-25-2023 Emergency department patient visit [facility] Work Phone: Start: 09-05-2023 End: 09-05-2023 Emergency department patient visit [facility] Work Phone: Start: 06-06-2023 Emergency department patient visit [facility] Facility:[facility] Start: 06-05-2023 End: 06-05-2023 Emergency department patient visit [facility] Work Phone: Start: 05-17-2023 End: 05-17-2023 Emergency department patient visit [facility] Work Phone: Start: 03-14-2023 ambulatory NAYA GODFREY LEAD [employer] 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 Facility:B Start: 01-21-2023 End: 01-21-2023 Emergency department patient visit No Primary Care Physician [facility] Start: 12-14-2022 End: 12-14-2022 Emergency department patient visit No Primary Care Physician [facility] Start: 12-03-2022 End: 12-03-2022 Emergency department patient visit [facility] Facility:[facility] Start: 10-26-2022 End: 10-26-2022 Emergency department patient visit No Primary Care Physician [facility] Start: 10-23-2022 End: 10-23-2022 Patient encounter procedure No Primary Care Physician [facility] Start: 10-07-2022 End: 10-11-2022 Emergency department patient visit [facility] Start: 09-06-2022 End: 09-06-2022 Emergency department patient visit DR SALIMA CONSTANTINO MD Facility:[facility] Start: 09-06-2022 End: 09-06-2022 Emergency department patient visit DR SALIMA CONSTANTINO MD [facility] Start: 08-18-2022 End: 08-18-2022 Emergency department patient visit [facility] Start: 03-30-2019 End: 03-30-2019 [facility] Start: 03-26-2019 End: 03-26-2019 [facility] Start: 02-08-2019 End: 02-08-2019 Emergency department patient visit [facility] Start: 02-04-2019 End: 02-05-2019 Emergency department patient visit [facility] Start: 02-02-2019 End: 02-02-2019 Emergency department patient visit GLEN HAMILTON [facility] Start: 12-22-2018 End: 12-22-2018 Emergency department patient visit MAYCOL CASAS [facility] Start: 10-07-2018 Patient encounter procedure JOSEPH J [facility] Start: 10-07-2018 End: 10-07-2018 Office outpatient visit 15 minutes Josephnaa Renteria Work Phone: [facility] [place] Comment on above: Pelvic pain (Primary Dx); PCOS (polycystic ovarian syndrome); Amenorrhea Start: 09-14-2018 End: 09-14-2018 Emergency department patient visit EHSAN JAQUEZ [facility] Start: 09-13-2018 Patient encounter procedure JOSEPH J [facility] Start: 09-03-2018 End: 09-03-2018 Patient encounter procedure Freddie Tinoco [facility] Start: 09-03-2018 End: 09-08-2018 Evaluation and management of inpatient FREDDIE CORONADOEN SILVANO [facility] Start: 09-03-2018 End: 09-03-2018 Emergency department patient visit AMBERLY NATHALIA [facility] Start: 09-03-2018 End: 09-08-2018 Evaluation and management of inpatient Juan Stu Pastor Work Phone: [facility] Oncology/Surgery Comment on above: Acute pyelonephritis (Primary Dx); Nausea and vomiting, intractability of vomiting not specified, unspecified vomiting type; Crohn's disease of small and large intestines with complication (HCC) Start: 08-31-2018 End: 08-31-2018 Emergency department patient visit EHSAN JAQUEZ [facility] Start: 08-12-2018 End: 08-12-2018 Emergency department patient visit Jade Oquendo Facility:[facility] Start: 07-31-2018 End: 07-31-2018 Emergency department patient visit BRITTANY Laverne BURCH [facility] Start: 07-26-2018 End: 07-26-2018 Emergency department patient visit [facility] Start: 07-23-2018 End: 07-23-2018 Emergency department patient visit [facility] Start: 07-09-2018 End: 07-09-2018 Emergency department patient visit JAGJIT SALAZAR [facility] Start: 06-05-2018 End: 06-05-2018 ambulatory UNKNOWN PROVIDER Facility:[facility] Start: 04-27-2018 End: 04-27-2018 Emergency department patient visit [facility] Start: 03-03-2018 End: 03-03-2018 Patient encounter procedure [facility] Start: 02-27-2018 End: 02-27-2018 Patient encounter Swapna Izquierdo Facility:[facility] Start: 02-19-2018 Patient encounter procedure JOSEPH J [facility] Start: 02-16-2018 End: 02-16-2018 Emergency department patient visit [facility] Start: 02-15-2018 Patient encounter procedure [facility] Start: 02-12-2018 Patient encounter procedure [facility] Start: 01-27-2018 End: 01-27-2018 Patient encounter procedure LONA CONSTANTINO [facility] Start: 12-18-2017 End: 12-18-2017 Emergency department patient visit Nirmal Maddox Facility:[facility] Start: 11-15-2017 Patient encounter procedure [facility] Start: 11-15-2017 Patient encounter procedure [facility] Start: 10-25-2017 End: 10-27-2017 Patient encounter procedure ASCENCION DUBON [facility] Start: 10-15-2017 End: 10-15-2017 Emergency department patient visit [facility] Start: 09-03-2017 End: 09-03-2017 Emergency department patient visit [facility] Start: 08-28-2017 Ambulatory [facility] Start: 05-11-2017 End: 05-11-2017 Emergency department patient visit MAYELA Gillette LEXI [facility] Procedures Date Procedure Procedure Detail Performing [...] complete auto&auto difrntl wbc Dhara Aurora Bautista [employer] 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 Work Phone: Start: 02-16-2025 US Abdomen Hanane [...] Start: 02-09-2025 Comprehensive metabolic panel Dhara Bautista [employer] 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 Work Phone: Start: 02-08-2025 Cul prsmptv pthgnc organism scrn w/colony estimj Fide Deleon MD Work Phone: Start: 02-08-2025 Glucose quantitative blood xcpt reagent strip Clair Jorgensen MD Work Phone: Start: 02-08-2025 Influenza virus A and B and SARS-CoV-2 (COVID-19) identified in Respiratory specimen by JYOTI with probe detection Fide Deelon MD Work Phone: Start: 02-08-2025 Creatinine other source Dhara Bautista APR N-LEAD NET SOFTWARE DEVELOPER Work Phone: Start: 02-08-2025 Blood typing serologic rh (d) Dhara Bautitsa [employer] 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 Work Phone: Start: 02-08-2025 End: 02-08-2025 Chloride bld Dhara Bautista [employer] UTILITY WORKER-CN P Work Phone: Start: 02-08-2025 Iaad ia [...] End: 01-08-2025 Comprehensive metabolic panel Vanesa Schmidt [employer] UTILITY 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 Work Phone: Start: 01-08-2025 Urnls dip stick/tablet rgnt non-auto w/o micrscp Vanesa Schmidt [employer] UTILITY 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 Work Phone: Start: 01-01-2025 Us preg uterus [...] biophysical profile w/o non-stress testing Celena Solis [employer] UTILITY 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 Work Phone: Start: 12-24-2024 Glucose quantitative blood xcpt reagent strip Earl Colorado MD Work Phone: Start: 12-23-2024 Glucose quantitative blood xcpt reagent strip Earl Colorado MD Work Phone: Start: 12-23-2024 Urnls dip stick/tablet rgnt non-auto w/o micrscp Celena Solis [employer] UTILITY 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 Work Phone: Start: 12-23-2024 Glucose quantitative blood xcpt reagent strip Earl Colorado MD Work Phone: Start: 12-23-2024 Blood typing serologic rh (d) Celena Solis [employer] UTILITY 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 Work Phone: Start: 12-23-2024 End: 12-23-2024 Comprehensive metabolic panel Celena Solis [employer] UTILITY 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 Work Phone: Start: 12-23-2024 Urnls dip stick/tablet rgnt non-auto w/o micrscp Laney Patricio [employer] UTILITY 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 Work Phone: Start: 12-23-2024 Glucose quantitative blood [...] End: 10-07-2018 Removal of intrauterine device Joseph Galloway Deny Work Phone: Start: 09-14-2018 Culture bacterial quanttative [...] 09-06-2018 Radiologic exam chest single view Arianne LReinaldo Vargas Work Phone: Start: 09-05-2018 End: 09-05-2018 Basic metabolic 1998 panel - Serum or Plasma Arianne SimonReinaldo Vargas Work Phone: Start: 09-05-2018 End: 09-05-2018 Complete blood count (hemogram) panel - Blood by Automated count Arianne LReinaldo Vargas Work Phone: Start: 09-04-2018 End: 09-04-2018 [...] activity/volume] in Serum or Plasma Joy Argentina Vasqueza Work Phone: Start: 09-03-2018 End: 09-03-2018 PINK TOP Triage Protocol Bertha gency Start: 09-03-2018 End: 09-03-2018 RAINBOW DRAW Triage Protocol Bertha genelen Start: 08-31-2018 Ct abdomen & pelvis w/o contrast material EHSAN JAQUEZ Start: 08-31-2018 Blood count complete auto&auto difrntl wbc EHSAN LEONID Start: 08-31-2018 Comprehensive metabolic panel EHSAN JAQUEZ [...] for Adults (1 - 1-dose 75+ series) [facility] Start: 2039 Zoster Vaccines (1 of 2) Zoster Vaccines (1 of 2) [facility] Start: 2038 Zoster Vaccines (1 of 2) Zoster Vaccines (1 of 2) [facility] Start: 03-05-2030 Lipid panel Lipid Panel [facility] Start: 03-10-2028 Diabetes mellitus screening Diabetes Screening [facility] Start: 03-01-2028 Diabetes mellitus screening Diabetes Screening [facility] Start: 02-13-2028 Diabetes mellitus screening Diabetes Screening [facility] Start: 03-05-2026 Lipid panel Lipid Panel [facility] Start: 07-06-2025 Influenza vaccination [facility] Start: 07-02-2025 End: 07-02-2025 Patient encounter procedure 07/02/2025 1:15 PM EDT Office Visit [facility] Internal Medicine [address] [place] [id number] Zoë Santana MD [address] [place] [id number] [facility] Medicine Start: 06-24-2025 End: 06-24-2025 Patient encounter procedure 06/24/2025 1:45 PM EDT Office Visit [facility] Internal Medicine 2020 [address] [place] [phone] Zoë Santana MD [address] [place] [address] [facility] Internal Medicine Start: 06-05-2025 Hemoglobin A1c measurement Diabetes: Hemoglobin A1C [facility] Start: 05-27-2025 End: 05-27-2025 Patient encounter procedure 05/27/2025 8:00 AM EDT Office Visit [facility] [address] [place] [address] Maycol Dykes MD 53 [facility] [place] [address] [facility] Start: 05-26-2025 End: 05-26-2025 Clinical Support 05/26/2025 3:00 PM EDT Clinical Support [facility] [address] [phone] [facility] Start: 05-13-2025 End: 05-13-2026 Comprehensive metabolic 2000 panel - Serum or Plasma Comprehensive Metabolic Panel Lab Routine Type 2 diabetes mellitus without complication, with long-term current use of insulin Expected: 05/13/2025 (Approximate), Expires: 05/13/2026 [facility] Service Area Work Phone: Comment on above: Expected: 05/13/2025 (Approximate), Expi res: 05/13/2026 Start: 05-13-2025 End: 05-13-2026 Hemoglobin A1c/Hemoglobin.total in Blood Hemoglobin A1C Lab Routine Type 2 diabetes mellitus without complication, with long-term current use of insulin Expected: 05/13/2025 (Approximate), Expires: 05/13/2026 [facility] Work Phone: Comment on above: Expected: 05/13/2025 (Approximate), Expi res: 05/13/2026 Start: 05-13-2025 End: 05-13-2026 Magnesium [Mass/volume] in Serum or Plasma Magnesium Lab Routine Hypomagnesemia Expected: 05/13/2025 (Approximate), Expires: 05/13/2026 [facility] Work Phone: Comment on above: Expected: 05/13/2025 (Approximate), Expi res: 05/13/2026 Start: 05-13-2025 End: 05-13-2026 Microalbumin/Creatinin e [Mass Ratio] in Urine Albumin-Creatinine Ratio, Urine Random Lab Routine Type 2 diabetes mellitus without complication, with long-term current use of insulin Expected: 05/13/2025 (Approximate), Expires: 05/13/2026 [facility] Work Phone: Comment on above: Expected: 05/13/2025 (Approximate), Expi res: 05/13/2026 Start: 03-17-2025 End: 03-17-2025 Patient encounter procedure 03/17/2025 11:15 AM EDT Office Visit [facility] Internal [facility] [address] [place] [phone] Zoë Santana MD [address] [place] [address] [facility] Start: 03-12-2025 End: 03-12-2025 Patient encounter procedure 03/12/2025 1:00 PM EDT [facility] [address] [phone] [place] [address] [place], [place] [phone] [facility] Start: 03-03-2025 End: 03-03-2026 CBC W Auto Differential panel - Blood CBC and Auto Differential Lab Routine Fatigue, unspecified type Anemia, unspecified type Expected: 03/03/2025 (Approximate), Expires: 03/03/2026 [facility] Work Phone: Comment on above: Expected: 03/03/2025 (Approximate), Expi res: 03/03/2026 Start: 03-03-2025 End: 03-03-2026 Comprehensive metabolic 2000 panel - Serum or Plasma Comprehensive Metabolic Panel Lab Routine Fatigue, unspecified type Benign essential HTN Weight gain History of gestational diabetes Expected: 03/03/2025 (Approximate), Expires: 03/03/2026 [facility] Service Area Work Phone: Comment on above: Expected: 03/03/2025 (Approximate), Expi res: 03/03/2026 Start: 03-03-2025 End: 03-03-2026 Hemoglobin A1c/Hemoglobin.total in Blood Hemoglobin A1C Lab Routine History of gestational diabetes Expected: 03/03/2025 (Approximate), Expires: 03/03/2026 [facility] Work Phone: Comment on above: Expected: 03/03/2025 (Approximate), Expi res: 03/03/2026 Start: 03-03-2025 End: 03-03-2026 Lipid 1996 panel - Serum or Plasma Lipid Panel Lab Routine Screening for hyperlipidemia Expected: 03/03/2025 (Approximate), Expires: 03/03/2026 [facility] Work Phone: Comment on above: Expected: 03/03/2025 (Approximate), Expi res: 03/03/2026 Start: 03-03-2025 End: 03-03-2026 Magnesium [Mass/volume] in Serum or Plasma Magnesium Lab Routine Fatigue, unspecified type Expected: 03/03/2025 (Approximate), Expires: 03/03/2026 [facility] Work Phone: Comment on above: Expected: 03/03/2025 (Approximate), Expi res: 03/03/2026 Start: 03-03-2025 End: 03-03-2026 TSH with reflex to Free T4 if abnormal TSH with reflex to Free T4 if abnormal Lab Routine Fatigue, unspecified type Weight gain Expected: 03/03/2025 (Approximate), Expires: 03/03/2026 [facility] Work Phone: Comment on above: Expected: 03/03/2025 (Approximate), Expi res: 03/03/2026 Start: 03-03-2025 End: 03-03-2026 Zinc [Mass/volume] in Serum or Plasma Zinc Lab Routine Fatigue, unspecified type Expected: 03/03/2025 (Approximate), Expires: 03/03/2026 [facility] Work Phone: Comment on above: Expected: 03/03/2025 (Approximate), Expi res: 03/03/2026 Start: 03-03-2025 End: 03-03-2025 Patient encounter procedure 03/03/2025 11:30 AM EDT Office Visit [facility] [address] [place] [phone] Zoë Santana MD [address] [place] [address] [facility] Start: 03-02-2025 End: 03-02-2025 Clinical Support [facility] Start: 02-26-2025 End: 02-26-2025 Patient encounter procedure [facility] Start: 02-23-2025 End: 02-23-2025 Clinical Support [facility] Start: 02-20-2025 End: 02-20-2025 Clinical Support 02/20/2025 10:00 AM EDT Clinical Support Critical access hospital [address] [place] [address] Critical access hospital Start: 02-19-2025 End: 02-19-2025 Patient encounter procedure [facility] Start: 02-16-2025 End: 02-16-2025 Clinical Support [facility] Start: 02-12-2025 End: 02-12-2025 Patient encounter procedure [facility] Start: 02-09-2025 End: 02-09-2025 Clinical Support [facility] Start: 02-05-2025 End: 02-05-2025 Patient encounter procedure [facility] Start: 02-02-2025 End: 02-02-2025 Clinical Support [facility] Start: 01-29-2025 End: 01-29-2025 Patient encounter procedure [facility] Start: 01-26-2025 End: 01-26-2025 Clinical Support [facility] Start: 01-22-2025 End: 01-22-2025 Patient encounter procedure [facility] Start: 01-20-2025 End: 01-20-2025 Clinical Support [facility] Start: 01-16-2025 Orders Only 01/16/2025 Orders Only [address] [place] [address] [place] [phone] [place] [address] [address] [phone] Gestational hypertension, second trimester ([facility]) Critical access hospital 4 Comment on above: Gestational hypertension, second trimest er ([facility]) Start: 01-15-2025 End: 01-15-2025 Patient encounter procedure [facility] Start: 01-09-2025 Orders Only 01/09/2025 Orders Only Critical access hospital 4 [address] [place] [phone] [place] [address] [place] [address] Gestational hypertension, second trimester ([facility]) Critical access hospital 4 Comment on above: Gestational hypertension, second trimest er ([facility]) Start: 01-08-2025 End: 01-08-2026 Creatinine [Mass/volume] in 24 hour Urine Creatinine, 24 Hour Urine Lab Routine Gestational hypertension, second trimester ([facility]) Expected: 01/08/2025 (Approximate), Expires: 01/08/2026 [facility] Work Phone: Comment on above: Expected: 01/08/2025 (Approximate), Expi res: 01/08/2026 Start: 01-08-2025 End: 01-08-2026 Protein [Mass/volume] in 24 hour Urine Protein, Total 24 Hour Urine Lab Routine Gestational hypertension, second trimester ([facility]) Expected: 01/08/2025 (Approximate), Expires: 01/08/2026 [facility] Work Phone: Comment on above: Expected: 01/08/2025 (Approximate), Expi res: 01/08/2026 Start: 01-06-2025 End: 01-06-2025 ambulatory 01/06/2025 1:30 PM EST Initial [facility] [address] [place] [phone] [place] [address] [place] [address] [facility] Start: 01-06-2025 End: 01-06-2025 Patient encounter procedure 01/06/2025 12:30 PM EST Appointment [facility] [address] [place] [phone] [facility] Start: 01-01-2025 End: 01-01-2025 ambulatory 01/01/2025 1:00 PM EST Initial [facility] [address] [place] [phone] [place] [address] [place] [address] [facility] Start: 12-25-2024 End: 12-25-2024 Patient encounter procedure 12/25/2024 11:30 AM EST Routine [facility] [place] [address] [place] [phone] [facility] Start: 07-06-2024 COVID-19 Vaccine ( season) COVID-19 Vaccine ( season) [facility] Start: 07-06-2024 Influenza vaccination Influenza Vaccine (#1) [facility] Start: 02-22-2024 [facility] Start: 12-05-2023 [facility] Start: 11-17-2023 [facility] Start: 10-25-2023 [facility] Start: 09-05-2023 [facility] Start: 09-05-2023 Enteric precautions [facility] Start: 06-05-2021 Screening for malignant neoplasm of cervix [facility] Start: 10-22-2020 Screening for malignant neoplasm of cervix [facility] Start: 2019 Screening for malignant neoplasm of cervix HPV/Cotest [facility] Start: 02-10-2019 End: 02-10-2019 Ambulatory 02/10/2019 Office Visit Gastroenterology Lupe Vo MD [address] [facility] [place] [phone] Division of Gastroenterology and Hepatology [address] Start: 10-22-2018 Screening for malignant neoplasm of cervix PAP SMEAR DISCUSSION [facility] Work Phone: Start: 10-07-2018 End: 10-07-2019 HCG ( test) Ql BETA HCG, QUANT, BLOOD Routine Amenorrhea Expected: 10/07/2018, Expires: 10/07/2019 [facility] Work Phone: Comment on above: Expected: 10/07/2018, Expires: 9 Start: 07-25-2018 Colonoscopy COLONOSCOPY [facility] Work Phone: Start: 07-06-2018 Influenza vaccination [facility] Start: 2015 HPV Vaccines (1 - 3-dose standard series) HPV Vaccines (1 - 3-dose standard series) [facility] Start: 2011 DTaP/Tdap/Td Vaccines (1 - Tdap) DTaP/Tdap/Td Vaccines (1 - Tdap) [facility] Start: 2010 DTaP/Tdap/Td Vaccines (1 - Tdap) DTaP/Tdap/Td Vaccines (1 - Tdap) [facility] Start: 2010 Screening for malignant neoplasm of cervix HPV/[facility] Start: 2009 Screening for malignant neoplasm of cervix HPV/[facility] Start: 2008 DTaP/Tdap/Td Vaccines (1 - Tdap) DTaP/Tdap/Td Vaccines (1 - Tdap) [facility] Start: 2008 Hepatitis B Vaccines (1 of 3 - 19+ 3-dose series) Hepatitis B Vaccines (1 of 3 - 19+ 3-dose series) [facility] Start: 2007 Diabetes mellitus screening Diabetes Screening [facility] Start: 2007 Hepatitis B Vaccines (1 of 3 - 19+ 3-dose series) Hepatitis B Vaccines (1 of 3 - 19+ 3-dose series) [facility] Start: 2007 Hepatitis C screening Hepatitis C Screening [facility] Start: 2007 PNEUMOCOCCAL VACCINE SERIES (1 of 3 - PCV13) PNEUMOCOCCAL VACCINE SERIES (1 of 3 - PCV13) [facility] Work Phone: Start: 2007 Pneumococcal Vaccine: Pediatrics and At-Risk Adult Patients (1 of 2 - PCV) Pneumococcal Vaccine: Pediatrics and At-Risk Adult Patients (1 of 2 - PCV) [facility] Start: 2007 Third diphtheria, tetanus and acellular pertussis (DTaP) vaccination TDAP (ADULT) [facility] Work Phone: Start: 2006 Hepatitis C screening Hepatitis C Screening [facility] Start: 2006 Tetanus vaccination TETANUS [facility] Work Phone: Start: 2002 Varicella vaccination Varicella Vaccines (1 of 2 - 13+ 2-dose series) [facility] Start: 2001 Depression Monitoring Depression Monitoring [facility] Start: 2001 Varicella vaccination Varicella Vaccines (1 of 2 - 13+ 2-dose series) [facility] Start: 1998 Glaucoma screening Diabetes: Retinopathy Screening [facility] Start: 1990 Hepatitis B Surface Antibody Hepatitis B Surface Antibody [facility] Start: 1990 MMR Vaccines (1 of 1 - Standard series) MMR Vaccines (1 of 1 - Standard series) [facility] Start: 1989 Cyanocobalamin vitamin b-12 Vitamin B-12 [facility] Start: 1989 Lipid panel Lipid Panel [facility] Start: 1989 MMR Vaccines (1 of 1 - Standard series) MMR Vaccines (1 of 1 - Standard series) [facility] Start: 1989 Screening for osteoporosis Bone Density Scan [facility] Start: 1989 TB Test TB Test [facility] Start: 1989 Vitamin D25-OH Vitamin D25-OH [facility] Start: 1989 Yearly Adult Physical Yearly Adult Physical [facility] Start: 1988 Cyanocobalamin vitamin b-12 Vitamin B-12 [facility] Start: 1988 Lipid panel Lipid Panel [facility] Start: 1988 Screening for malignant neoplasm of cervix PAP SMEAR [facility] Start: 1988 Screening for osteoporosis Bone Density Scan [facility] Start: 1988 TB Test TB Test [facility] Start: 1988 Tetanus vaccination TETANUS EVERY 10 YR [facility] Start: 1988 Urine screening for protein Diabetes: Urine Protein Screening [facility] Start: 1988 Vitamin D25-OH Vitamin D25-OH [facility] Start: 1988 Yearly Adult Physical Yearly Adult Physical [facility] Bacteria identified Cx Nom (Bld) [facility] End: 12-25-2025 CBC panel - Blood by Automated count CBC Lab Routine Gestational hypertension, second trimester ([facility]) Once a week for 12 Occurrences starting 12/25/2024 until 12/25/2025 [facility] Work Phone: Comment on above: Once a week for 12 Occurrences starting 12/25/2024 until 12/25/2025 End: 02-12-2025 Chlamydia trachomatis and Neisseria gonorrhoeae DNA [Identifier] in Unspecified specimen by JYOTI with probe detection C. trachomatis / N. gonorrhoeae, Amplified, Urogenital Lab Add-On Once (Lab) for 1 Occurrences starting 02/12/2025 until 02/12/2025 [facility] Service Area Work Phone: Comment on above: Once (Lab) for 1 Occurrences starting until 02/12/2025 End: 12-25-2025 Comprehensive metabolic 2000 panel - Serum or Plasma Comprehensive Metabolic Panel Lab Routine Gestational hypertension, second trimester ([facility]) Once a week for 12 Occurrences starting 12/25/2024 until 12/25/2025 [facility] Work Phone: Comment on above: Once a week for 12 Occurrences starting 12/25/2024 until 12/25/2025 Electrocardiogram, 12-lead PRN ACS symptoms Electrocardiogram, 12-lead PRN ACS symptoms ECG Routine As needed until discontinued starting 12/23/2024 [facility] Work Phone: Comment on above: As needed until discontinued starting Electrocardiogram, 12-lead PRN ACS symptoms Electrocardiogram, 12-lead PRN ACS symptoms ECG Routine As needed until discontinued starting 12/23/2024 [facility] Work Phone: Comment on above: As needed until discontinued starting Electrocardiogram, 12-lead PRN ACS symptoms Electrocardiogram, 12-lead PRN ACS symptoms ECG Routine As needed until discontinued starting 01/08/2025 [facility] Work Phone: Comment on above: As needed until discontinued starting Electrocardiogram, 12-lead PRN ACS symptoms Electrocardiogram, 12-lead PRN ACS symptoms ECG Routine As needed until discontinued starting 02/13/2025 [facility] Work Phone: Comment on above: As needed until discontinued starting Electrocardiogram, 12-lead PRN ACS symptoms Electrocardiogram, 12-lead PRN ACS symptoms ECG Routine As needed until discontinued starting 02/16/2025 [facility] Work Phone: Comment on above: As needed until discontinued starting Electrocardiogram, 12-lead PRN ACS symptoms Electrocardiogram, 12-lead PRN ACS symptoms ECG Routine As needed until discontinued starting 03/01/2025 [facility] Service Area Work Phone: Comment on above: As needed until discontinued starting Gas panel - Arterial cord blood Blood Gas Cord Arterial Lab Timed As needed (Lab) until discontinued starting 12/23/2024 [facility] Work Phone: Comment on above: As needed (Lab) until discontinued start ing 12/23/2024 Gas panel - Arterial cord blood Blood Gas Cord Arterial Lab Routine As needed (Lab) until discontinued starting 02/13/2025 [facility] Work Phone: Comment on above: As needed (Lab) until discontinued start ing 02/13/2025 Gas panel - Venous cord blood Blood Gas Cord Venous Lab Timed As needed (Lab) until discontinued starting 12/23/2024 [facility] Work Phone: Comment on above: As needed (Lab) until discontinued start ing 12/23/2024 Gas panel - Venous cord blood Blood Gas Cord Venous Lab Routine As needed (Lab) until discontinued starting 02/13/2025 [facility] Work Phone: Comment on above: As needed (Lab) until discontinued start ing 02/13/2025 Glucose [Mass/volume ] in Serum or Plasma POCT Glucose Point of Care Testing - Docked Device Routine As needed (Lab) until discontinued starting 12/23/2024 [facility] Work Phone: Comment on above: As needed (Lab) until discontinued start ing 12/23/2024 Glucose [Mass/volume ] in Serum or Plasma [facility] Work Phone: Comment on above: Every Morning (Lab) until discontinued s tarting 12/24/2024, 1 completed 3 times daily after meals (Lab) until discontinued starting 12/24/2024, 3 completed End: 12-23-2024 Nonstress test [facility] Work Phone: Comment on above: Once for 1 Occurrences starting 12/23/19 until 12/23/2024 Daily until disconti nued starting 12/24/2024 As needed until disc ontinued starting 12/23/2024 End: 01-08-2025 Nonstress test nonstress test (>= 23 weeks) Procedures Routine Once for 1 Occurrences starting 01/08/2025 until 01/08/2025 [facility] Work Phone: Comment on above: Once for 1 Occurrences starting 01/09/20 until 01/08/2025 Patient Education [facility] Work Phone: Patient referral [facility] Work Phone: End: 02-16-2025 POCT UA (nonautomated) manually resulted POCT UA (nonautomated) manually resulted Point of Care Testing Routine Once (Lab) for 1 Occurrences starting 02/16/2025 until 02/16/2025 [facility] Work Phone: Comment on above: Once (Lab) for 1 Occurrences starting until 02/16/2025 End: 03-01-2025 POCT UA (nonautomated) manually resulted POCT UA (nonautomated) manually resulted Point of Care Testing Routine Once (Lab) for 1 Occurrences starting 03/01/2025 until 03/01/2025 [facility] Work Phone: Comment on above: Once (Lab) for 1 Occurrences starting until 03/01/2025 End: 01-08-2025 US for [facility] Service Area Work Phone: Comment on above: Once for 1 Occurrences starting 01/09/20 until 01/08/2025 End: 01-29-2025 US for [facility] Service Area Work Phone: Comment on above: Once for 1 Occurrences starting 01/30/20 until 01/29/2025 Immunizations Immunization Date Immunization Notes Care Provider Gerard bain 05-01-2015 PPD (MANTOUX TEST); Translations: [PPD (MANTOUX TEST)] Joseph Renteria [facility] Work Phone: 02-13-2014 tuberculin skin test ; purified protein derivative solution, intradermal Zoë Santana MD Work Phone: [facility] NEGATED: Highlighted row has not occurred!02-15-2025 measles, mumps and rubella virus vaccine Earl Colorado MD Work Phone: [facility] Comment on above: Deferred: No longer needed Payers Date Payer Category Payer Medicaid MEDICAID [id number] 10-09-2024 Unknown [id number] 08-01-2023 [employer] [place] [employer] Managed Care [id number] 08-01-2023 Blue Cross Mj Cervantes ld Managed Care - [place] BLUE CROSS Member Subscriber Plan / Payer (Effective 2023-Present) Name: Dayna Tinsley Relation to Subscriber: Self Name: Dayna Tinsley Payer ID: [id number] (NAIC) Type: Commercial Address: [place] [id number] 08-01-2023 Unknown [id number] 02-03-2023 Unknown [id number] 09-06-2022 Self-pay [id number] 12-22-2018 Private Health Insurance [id number] 11-05-2015 Medicaid [id number] 1989 Unknown [id number] 2.16.840.1.724744.3.579.2. 627 1989 Unknown [id number] 2.16.840.1.542020.3.579.2. 627 1989 Unknown [id number] 2.16.840.1.130620.3.579.2. 479 1989 Unknown [id number] 2.16.840.1.213605.3.579.2. 479 1989 Unknown [id number] 2.16.840.1.999605.3.579.2. 479 1989 Unknown [id number] 2.16.840.1.657682.3.579.2. 479 1989 Unknown [id number] 2.16.840.1.723998.3.579.2. 124411-10-1989 Unknown [id number] 2.16.840.1.472023.3.579.2. 124411-10-1989 Unknown [id number] 2.16.840.1.255498.3.579.2. 124411-10-1989 Unknown [id number] 2.16.840.1.081336.3.579.2. 124411-10-1989 Unknown [id number] 2.16.840.1.087870.3.579.2. 124411-10-1989 Unknown [id number] 2.16.840.1.564898.3.579.2. 124411-10-1989 Unknown [id number] 2.16.840.1.244698.3.579.2. 124411-10-1989 Unknown [id number] 2.16.840.1.268230.3.579.2. 124411-10-1989 Unknown [id number] 2.16.840.1.306682.3.579.2. 124411-10-1989 Unknown [id number] 2.16.840.1.706911.3.579.2. 124411-10-1989 Unknown [id number] 2.16.840.1.646649.3.579.2. 124411-10-1989 Unknown [id number] 2.16.840.1.722081.3.579.2. 124411-10-1989 Unknown [id number] 2.16.840.1.320118.3.579.2. 124411-10-1989 Unknown [id number] 2.16.840.1.165658.3.579.2. 124411-10-1989 Unknown [id number] 2.16.840.1.289687.3.579.2. 124411-10-1989 Unknown [id number] 2.16.840.1.083317.3.579.2. 124411-10-1989 Unknown [id number] 2.16.840.1.157621.3.579.2. 1245 1989 Unknown [id number] 2.16.840.1.698444.3.579.2. 1244 1988 Unknown [id number] 2.16.840.1.860121.3.579.2. 430 1988 Unknown [id number] 2.16.840.1.342241.3.579.2. 902 1988 Unknown [id number] 2.16.840.1.641081.3.579.2. 173 1988 Unknown [id number] 2.16.840.1.404933.3.579.2. 173 1988 Unknown [id number] 2.16.840.1.138305.3.579.2. 173 1988 Unknown [id number] 2.16.840.1.393254.3.579.2. 174 1988 Unknown [id number] 2.16.840.1.579438.3.579.2. 174 1988 Unknown [id number] 2.16.840.1.975643.3.579.2. 174 1988 Unknown [id number] 2.16.840.1.867859.3.579.2. 174 1988 Unknown [id number] 2.16.840.1.971910.3.579.2. 174 1988 Unknown [id number] 2.16.840.1.244764.3.579.2. 174 1988 Unknown [id number] 2.16.840.1.554403.3.579.2. 732 1988 Unknown [id number] 2.16.840.1.777163.3.579.2. 903 1988 Unknown [id number] 2.16.840.1.485413.3.579.2. 903 1988 Unknown [id number] 2.16.840.1.856842.3.579.2. 1245 1988 Unknown [id number] 2.840.1.242456.3.579.2. 1245 1988 Unknown [id number] 2.16840.1.977046.3.579.2. 1244 1988 Unknown [id number] 2.840.1.903742.3.579.2. 1244 1988 Unknown [id number] 2.840.1.774556.3.579.2. 1244 1988 Unknown [id number] 2.840.1.480554.3.579.2. 1244 Unknown Unknown MYKE [id number] Unknown [id number] Unknown [place] [id number] Unknown [id number] 2.840.1.640875.3.579.2. 462 Unknown [id number] 2.840.1.199226.3.579.2. 462 Unknown [id number] 2.840.1.154030.3.579.2. 462 Unknown [id number] 840.1.485792.3.579.2. 462 Unknown [id number] 2.840.1.244603.3.579.2. 462 Unknown [id number] 2.840.1.100754.3.579.2. 462 Unknown [id number] 2.840.1.365421.3.579.2. 462 Unknown [id number] 2.840.1.683995.3.579.2. 462 Unknown [id number] 2.840.1.210347.3.579.2. 462 Unknown [id number] 2.16.840.1.556225.3.579.2. 462 Unknown [id number] 2.16.840.1.690898.3.579.2. 462 Unknown [id number] 2.16.840.1.364678.3.579.2. 462 Unknown [id number] 2.16.840.1.720046.3.579.2. 462 Unknown [id number] 2.16.840.1.208202.3.579.2. 462 Unknown [id number] 2.840.1.268583.3.579.2. 462 Unknown [id number] 2.840.1.724623.3.579.2. 462 Unknown [id number] 2.840.1.835676.3.579.2. 462 Unknown [id number] 2.840.1.991966.3.579.2. 462 Unknown [id number] 2.840.1.342182.3.579.2. 462 Unknown [id number] 2.840.1.581918.3.579.2. 462 Unknown [id number] 2.840.1.181138.3.579.2. 462 Unknown [id number] 2.840.1.696349.3.579.2. 462 Unknown [id number] 2.840.1.185789.3.579.2. 462 Unknown [id number] 2.16840.1.115368.3.579.2. 462 Unknown [id number] 2.16840.1.456665.3.579.2. 462 Unknown [id number] 2.16840.1.116552.3.579.2. 462 Unknown [id number] 2.16840.1.674608.3.579.2. 462 Unknown [id number] 2.16.840.1.917660.3.579.2. 462 Unknown [id number] 2.16.840.1.156396.3.579.2. 462 Unknown [id number] 2.16.840.1.142494.3.579.2. 462 Unknown [id number] 2.16.840.1.158413.3.579.2. 462 Unknown [id number] 2.16.840.1.268611.3.579.2. 462 Unknown [id number] 2.16.840.1.357248.3.579.2. 462 Unknown [id number] 2.16.840.1.197509.3.579.2. 462 Unknown [id number] 2.16.840.1.217592.3.579.2. 462 Unknown [id number] 2.16.840.1.563402.3.579.2. 462 Unknown [id number] 2.16.840.1.469626.3.579.2. 462 Unknown [id number] 2.16.840.1.838289.3.579.2. 462 Unknown [id number] 2.16.840.1.085650.3.579.2. 462 Unknown [id number] 2.16.840.1.380072.3.579.2. 462 Unknown [id number] 2.16.840.1.780667.3.579.2. 462 Unknown [id number] 2.16.840.1.895834.3.579.2. 462 Unknown [id number] 2.16.840.1.033353.3.579.2. 462 Unknown [id number] 2.16.840.1.251158.3.579.2. 462 Unknown [id number] 2.16.840.1.816408.3.579.2. 462 Unknown [id number] 2.16.840.1.765165.3.579.2. 462 Unknown [id number] 2.16.840.1.794126.3.579.2. 462 Unknown [id number] 2.16.840.1.663265.3.579.2. 462 Unknown [id number] 2.16.840.1.548215.3.579.2. 462 Unknown [id number] 2.16.840.1.144730.3.579.2. 462 Unknown [id number] 2.16.840.1.536700.3.579.2. 462 Unknown [id number] 2.16.840.1.872553.3.579.2. 462 Unknown [id number] 2.16.840.1.765521.3.579.2. 462 Unknown [id number] 2.16.840.1.512857.3.579.2. 462 Unknown [id number] 2.16840.1.576096.3.579.2. 462 Unknown [id number] 2.16.840.1.617957.3.579.2. 462 Unknown [id number] 2.16.840.1.910204.3.579.2. 462 Social History Date Type Detail Facility Start: 09-03-2018 End: 10-07-2018 Tobacco smoking status ALIS Never smoker [facility] Start: 1988 End: 1989 Sex Assigned At Not on file [facility] Start: 08-18-2022 End: 02-22-2024 Tobacco smoking status ALIS Unknown if ever smoked [facility] Start: 1988 End: 1989 Sex Assigned At Female [facility] Tobacco smoking status No Smoking Status Entered [facility] Start: 12-09-2024 Alcoholic beverage intake Current non-drinker of alcohol (finding) [facility] Start: 11-25-2024 End: 03-10-2025 History of Social function [facility] Start: 11-25-2024 End: 03-10-2025 Tobacco use panel [facility] Start: 06-05-2022 Sex Female (finding) [facility] [employer] Start: 12-23-2024 Tobacco smoking status NHIS Ex-smoker [facility] History of tobacco use Current smoker [facility] Work Phone: History of tobacco use Cigarette Smoker [facility] Work Phone: Within the last year , have you been afraid of your partner or ex-partner? No [facility] Work Phone: How often to you hav e a drink containing alcohol? Never [facility] Work Phone: Start: 09-29-2022 How many standard drinks containing alcohol do you have on a typical day? Patient does not drink [facility] Work Phone: How hard is it for you to pay for the very basics like food, housing, medical care, and heating Somewhat hard [facility] Work Phone: (I/We) worried whether (my/our) food would run out before (I/we) got money to buy more. Never true [facility] Work Phone: Start: 07-14-2024 [facility] Work Phone: Start: 12-13-2024 End: 03-10-2025 Exposure to SARS-CoV-2 (event) Not sure [facility] Work Phone: Start: 01-01-2025 End: 06-24-2025 Alcoholic beverage intake Lifetime non-drinker (finding) [facility] Work Phone: Start: 03-03-2025 Tobacco smoking status ALIS Smokes tobacco daily [facility] Work Phone: NEGATED: Highlighted row [facility] Medical Equipment Procedure Code Equipment Code Equipment Origin al Text Equipment Identifier Dates Use to Test Bloo d Glucose 4 times a day - fasting and at 2 hours after a meal. [id number] Start: 02-12-2018 FOR FASTING AND 2 HOURS AFTER MEALS [id number] Start: 02-12-2018 Use 1 strip 4-6 times a day during [id number] Start: 12-25-2024 Use 1 lancet 4-6 times per day during [id number] Start: 12-25-2024 Use 1 per inject ion, up to 5 times a day [id number] Start: 12-25-2024 End: 01-01-2025 Use 1 per inject ion, up to 5 times a day [id number] Start: 01-01-2025 Use 1 per inject ion, up to 8 times a day [id number] Start: 01-06-2025 End: 03-01-2025 Use 1 per inject ion, up to 8 times a day [id number] Start: 03-01-2025 Functional Status Date Assessment Result Facility 06-24-2025 Patient Health Questionnaire 2 item (PHQ-2) [Reported] [facility] Work Phone: 05-13-2025 Patient Health Questionnaire 2 item (PHQ-2) [Reported] [facility] Work Phone: 03-10-2025 Patient Health Questionnaire 2 item (PHQ-2) [Reported] [facility] Work Phone: 03-03-2025 Patient Health Questionnaire 2 item (PHQ-2) [Reported] [facility] Work Phone: 03-01-2025 Total score [AUDIT-C] 0 03/01/20 25 4:40 PM Gregory Chapin, DOUG [facility] Work Phone: 03-01-2025 Patient Health Questionnaire 2 item (PHQ-2) [Reported] [facility] Work Phone: 03-01-2025 [place] - suicide s everity rating scale screener - recent [C-SSRS] [facility] Work Phone: 09-06-2022 Functional Status Independent [facility] 09-06-2022 Functional Status Standard Safet y ID band on, Call device within reach, Bed in low position, Wheels locked, personal items within reach, Visitor at bedside, Safety level maintained [facility] Work Phone: Mental Status Date Assessment Result Facility 12-14-2022 Cognitive function Voice/Name [facility] Work Phone: 10-26-2022 Cognitive function Level Of Cons ciousness Awake;Alert;Appropriate;Follow s Commands [facility] Work Phone: 09-06-2022 Mental Status Orientation Oriented x 4 [facility] 09-06-2022 Mental [facility] Clinical Notes 09-06-2022 to 06-24-2025 Zoë Santana MD - 06/24/2025 1:45 PM EDTFelaina Santana MD - 05/13/2025 12:45 PM EDTAssessment & Plan Note - Suzette Galindo MD - 03/10/2025 12:30 PM EDTDischarge InstructionsAttachments Note Date & Type Note Facility 06-24-2025 History of Present illness Narrative Subjective Patient ID: Dayna Tinsley is a 34 y.o. female who presents for Follow-up (1.5 month fu ). HPI LAB F/U WHICH WASN'T DONE. F/U ON WEIGHT LOSS BY USING OZEMPIC, WONDERS IF DOSAGE CAN BE INCREASED . WORSENING INSOMNIA . CURRENT DOSAGE OF TRAZODONE IS NOT ENOUGH.HAS BEEN OUT OF WORK SINCE 06/22.WANTS TO BE OFF SECONDARY TO HEAT AND RASH FROM SWEATING NEEDS FORM FOR WORK TO BE DONE. Review of Systems Constitutional: Negative for chills and fever. HENT: Negative. Negative for congestion, postnasal drip [...] is warm and dry. Findings: No rash. Comments: SKIN CANDIDIASIS OF GROIN AND PUBIC AREA. Neurological: General: No focal deficit present. Mental Status: She is alert. Mental status is at baseline. Psychiatric: Mood and Affect: Mood normal. Behavior: Behavior normal. Assessment/Plan 1. Morbid obesity with BMI of 50.0-59.9, adult (Multi) semaglutide (Ozempic) 1 mg/dose (4 mg/3 mL) pen injector 2. Type 2 diabetes mellitus without complication, with long-term current use of insulin semaglutide (Ozempic) 1 mg/dose (4 mg/3 mL) pen injector 3. Other physical and mental strain related to work Referral to Occupational Therapy 4. Other insomnia traZODone (Desyrel) 100 mg tablet 5. Hypertension associated with diabetes 6. Skin candidiasis ADVISED TO DO THE LABS FOR NEXT VISIT. Diabetes Mellitus addressed as follow: 1800 ROXANA ADA HGA1C GOAL LESS THAN 7 LOSE WT EXERCISE DAILY ADVISED TO HAVE LOW FAT AND LOW CALORIE DIET AND TO LOOSE WEIGHT, DAILY EXERCISE. EXPLAINED THE NEED TO REFER FOR FCE TO FILL UP THE FORM.. ADVISED TO APPLY COLD COMPRESSION TO SKIN PRN WITH HAVING CANDIDIASIS. to keep the skin dry, prevention of sweating andto use otc diaper rash cream prn. ADVISED FOR RELAXATION TECHNIQUES AND TO CUT DOWN ON CAFFEINE. WILL INCREASE TRAZODONE TO 100 MG at bedtime. MDM 1) COMPLEXITY: MORE THAN 1 STABLE CHRONIC CONDITION ADDRESSED 2)DATA: TESTS INTERPRETED AND OR ORDERED, TOOK INDEPENDENT HISTORY OR RECORDS REVIEWED 3)RISK: MODERATE RISK DUE TO NATURE OF MEDICAL CONDITIONS/COMORBIDITY OR MEDICATIONS ORDERED OR SURGICAL OR PROCEDURE REFERRAL, . 1 WEEK WORK EXCUSE FROM 06/22 TO 07/03 (for SKIN CANDIDIASIS SECONDARY TO SWEATING AND HEAT EXPOSURE AT WORK). PLEASE SET UP THE OCCUPATION TX SOON TO BE DONE BEFORE NEXT VISIT. documented in this encounter [facility] Work Phone: 05-13-2025 History of Present illness Narrative Subjective Patient ID: Dayna Tinsley is a 34 y.o. female who presents for Follow-up (6 week fu (ozempic) having trouble sleeping ). HPI MED REFILL. WEIGHT GAIN, IS WILLING TO INCREASE THE OZEMPIC. CHRONIC INSOMNIA, OTC TX DOESN'T HELP. NEEDS A LETTER TO USE THE GYM. FACIAL ACNE ,DOESN'T WANT TO TAKE DOXY WITH H/O C.DIFF. NEEDS EMERGENCY RESPONSE COORDINATOR REFERRAL FOR CONTROL INJECTIONS. Review of Systems [...] EACH TIME. documented in this encounter [facility] Work Phone: 03-10-2025 Evaluation + Plan [...] -Has PCP follow up on 03/17 [facility] Work Phone: 03-10-2025 Evaluation + Plan [...] mammogram. Referral to cancer genetics. -Will schedule associate team physician follow up visit for pap, depo, and further discussion of mammogram timing. Orders: Referral to Physical Therapy; Future Referral to Genetics; Future [facility] Work Phone: 03-10-2025 Evaluation + Plan note Associated Problem(s): Counseling for initiation of control method -Discussed recommendation for progesterone only methods given persistent high blood pressure with likely chronic hypertension. Discussed risks and benefits of options. Patient desires depo. First dose given today. Next dose early end of May/early June. Orders: medroxyPROGESTERone (Depo-Provera) injection 150 mg [facility] Work Phone: 03-10-2025 Evaluation + Plan note Associated Problem(s): History of pre-eclampsia -Cont nifedipine 60/30 and spirinolactone per PCP. Recommend discussing with PCP switching to JUSTINE/ARB now that patient is . -Cont daily BP monitoring at home. [facility] Work Phone: 03-10-2025 Evaluation + Plan note Associated Problem(s): Bilateral lower extremity edema -Likely secondary to related fluid changes given still in period. Bilateral without pain or erythema, low suspicion for DVT. -Encouraged elevation and compression socks -Patient desires lasix course, prescribed. Orders: Basic Metabolic Panel; Future furosemide (Lasix) 40 mg tablet; Take 1 tablet (40 mg) by mouth once daily. [facility] Work Phone: 03-10-2025 History of Present [...] mammogram. Referral to cancer genetics. -Will schedule associate team physician follow up visit for pap, depo, and [...] once daily. RTC in 3 months for associate team physician visit Patient seen and evaluated with Dr. [...] Maternal Medicine documented in this encounter [facility] Work Phone: 03-10-2025 Miscellaneous Notes Associated [...] mammogram. Referral to cancer genetics. -Will schedule associate team physician follow up visit for pap, depo, and [...] once daily. documented in this encounter [facility] Work Phone: 03-03-2025 History of Present [...] THE WITH WEIGHT LOSS. HAS F/U WITH EMERGENCY RESPONSE COORDINATOR AND PSYCHIATRIST. HAS H/O CROHN'S DISEASE , [...] diabetic diet. documented in this encounter [facility] Work Phone: 02-16-2025 Note Hanane Malagno MD 02/16 3:01 PM PROCEDURE NOTE Pelvic [...] MD at 02/16/2025 3:39 PM EDT Associated attKelli Mahmood MD - 02/16/2025 3:39 PM EDT I [...] making as documented in the note. [facility] Work Phone: 02-16-2025 Procedure note Associated [...] MD at 02/16/2025 3:39 PM EDT Associated Kelli Rollins MD - 02/16/2025 3:39 PM EDT I [...] the note. documented in this encounter [facility] Work Phone: 02-15-2025 regional commercial sales manager Note Patient meets criteria for home monitoring of blood pressure post discharge. Met with patient to assess for availability of home BP monitor. Patient does not have access to BP monitor at home. Pt agreed to order home BP monitor from [employer]. BP monitor delivered to room. Patient educated on how to use BP monitor, recording BP s on home monitoring log and s/sx to report to her provider. Pt verbalized understanding the above information. [facility] Work Phone: 02-15-2025 Miscellaneous Notes Patient meets criteria for home monitoring of blood pressure post discharge. Met with patient to assess for availability of home BP monitor. Patient does not have access to BP monitor at home. Pt agreed to order home BP monitor from [employer]. BP monitor delivered to room. Patient educated [...] s/sx of HDP and BP<160/110 Outcome: Progressing Cage Fighter Note Recommendations/Summary Attempted to see mother to [...] note was copied from a baby's chart. Cage Fighter Note Consultation Reason for Consult: Initial assessment, NICU baby Tonal Regulator Name: Isabel Contreras RN IBCLC Maternal Information [...] Maternal Risk Factors: delivery <37 weeks, Preeclampsia Risk Factors: Prematurity <37 weeks Recommendations/Summary I [...] extremities Neuro: awake and conversant, reflexes per development director: normal mood Skin: no rashes or lesions [...] Delivery Provider: Jose Guadalupe Gupta MD Resident/Fellow/Other Geriatrics Physician: Hanane Malagon MD / Luz Thomas MD [...] Loss: Delivery Blood Loss Intrapartum & : 02/08/25 180 - 02/12/25 1204 Delivery Admission: 02/08/25 180 - 02/12/25 1204 Intrapartum & Delivery Admission None Blood products: Uterotonics/Hemostatic Agent: IV Pitocin 30 units Specimen: Placenta Delivered: Appearance: Intact Removal: Spontaneous Disposition: Sponge/Instrument/Needle Counts: The sponge, lap and needle counts were correct. Patient Disposition: Patient recovering on labor and delivery in stable condition. Additional Procedures: None DaphneyteressaDinh [[id number]] Labor Events Rupture date/time: 02/11/2025 1903 Rupture [...] No Shoulder Dystocia Shoulder dystocia present?: No [place]man Delivery Time head delivered: 02/12/2025 11:30:00 date/time: [...] Guadalupe Gupta MD Provider Role Erin Schmidt, rubber gasket inspector trimmer Nurse Josie Cheng, RN Nursery Nurse Hanane [...] 1930 0.5/50/-3 0130 CRB/Cyto#1 0500 cyto2 0830 50/-3 1230 /70/-3, pit turned off at request 1445 pit restarted 1615 70/-3 1900 unchanged, AROM, IUPC 2330 80/-2 0200 unchanged, FSE 0445 pit paused for lates 0530 unchanged 0600 pit on 0830 80/-2, IUPC replaced 1045 /-1 - Continue to [...] requesting cervical exam SVE /-2 FHT: 145/mod/-accel/-decel [place] q2-3min IOL -Latent labor, unchanged exam. FSE/IUPC [...] for more accurate assessment, patient amenable. SVE 80/-2 FHT: 150/mod/+accel/-decel [place] q2-3min Latent labor, unchanged exam. FSE placed Continue pitocin per protocol. S/p AROM @ 1900 CEFM, currently Cat I Epidural infusing Fide Deleon MD, PGY-2 Requesting cervical exam. Also feels like baby flipped and wants to rescan for presentation. SVE /-2 FHT: 150/mod/+accel/-decel [place] q2-3min Latent labor Cephalic on BSUS Continue pitocin per protocol. S/p AROM @ 1900 CEFM, currently Cat I Epidural infusing Fide Deleon MD, PGY-2 Feeling more pressure with contractions, requesting cervical exam SVE 470/-3, unchanged from prior FHT: 145/mod/+accel/-decel [place] q2-3min Continue pitocin per protocol. S/p AROM @ 1900 CEFM, currently Cat I Epidural infusing Fide Deleon MD, PGY-2 To bedside for AROM. BSUS cephalic. head was palpated w/o other presenting parts. AROM for clear fluid with fundal pressure. SVE 470/-3, unchanged from prior FHT: 140/mod/+accel/-decel [place] irregular, q2-3min Continue pitocin per protocol CEFM, currently Cat I Epidural infusing S/p AROM for clear IUPC placed to monitor contractions Seen & Discussed with Dr. Motta, PGY4 Fide Deleon MD, PGY-2 To bedside for cervical exam at patient request. Pitocin has been restarted. Patient feeling nauseous and flushed and feels like her sugar is low. SVE 70/-3, unchanged from prior FHT: 140/mod/+accel/-decel [place] irregular, q1-2min BG 72 Continue pitocin per [...] BMI 52.53 kg/m SVE: 4/70/-3 FHT: 145/moderate/+accels/-deccels [place]: q 2 mins A/P: Patient requesting pause [...] readdress Fide Deleon MD, PGY-2 Labor induction chief administrative officer at bedside to rescan for presentation as fetus previously found to be oblique. After draining bladder with doll catheter placement and position changes, fetus now cephalic on BSUS. CRB and Cyto#1 placed at that time. For second dose in 3 hours if CRB still in situ, FHR reassuring and contractions aren't too frequent. PCN started for GBS unk. FHR: 140/mod/+accel/-decel [place]: no contractions D/w Dr. Hilda Tucker MD, [...] 01/12, will continue to treat. Discussed with MFEvelio, roday to start induction at 6pm in [...] on insulin drip while eating Contractions - [place]: irregular but difficult to trace pattern d/t [...] MD, PGY-2 documented in this encounter [facility] Work Phone: 02-15-2025 Plan of care [...] and given to patient, all questions answered. [facility] Work Phone: 02-15-2025 Hospital Discharge instructions [...] to nearest emergency room. *Information obtained from [facility]'s: Save Your Life: Get Care for These POST- Warning Signs documented in this encounter [facility] Work Phone: 02-15-2025 Plan of care note Problem: Goal: Experiences normal course Outcome: Progressing Goal: Appropriate maternal - bonding Outcome: Progressing Goal: Establish and maintain feeding pattern for adequate nutrition Outcome: Progressing Goal: No s/sx infection Outcome: Progressing Goal: No s/sx of hemorrhage Outcome: Progressing Goal: Minimal s/sx of HDP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 your Primary Care Provider. Call [facility] ([phone]) or report to the closest Emergency Room. Call 911 if necessary. 12/14/222319 <Electronically signed by Jimmy Taylor MD> Cosigner Signature (if applicable): CC: No Primary Care Physician ~ Signed [facility] Work Phone: 1(424) 468-136411-02-2022 Hospital Discharge instructions Patient Education 09/06/2022 18:29:58 [...] are taking other medicines. You may use [id number] medicine as directed on the bottle to [...] Numbness in the groin or genital area [id number] Technology. [address] [place] [address], [place] [address]. All rights reserved. This information is not intended as a substitute for professional medical care. Always follow yourhealthcare professional's instructions. Follow Up Care 09/06/2022 16:54:12 With:Follow up with primary care provider Address:Unknown When:2-4 days Comments:Take ibuprofen for pain, follow close with your doctor. Eat a high potassium diet including bananas, oranges, avocados, black beans, potatoes. [facility] Discharge summary Discharge Instructions Thank you for allowing [facility] to assist you with your healthcare needs. [...] may report side effects to FDA at 1-165-JQV-9667. What other drugs will affect ketorolac? Ask [...] drugs may affect ketorolac, including prescription and wciv-gvd-tcuifkx medicines, vitamins, and herbal products. Not all [...] to ensure that the information provided by [employer]. ('Multum') is accurate, up-to-date, and complete, but no guarantee is made to that effect. Drug information contained herein may be time sensitive. [employer] information has been compiled for use by healthcare practitioners and consumers in the [place] and therefore [employer] does not warrant that uses outside of the [place] are appropriate, unless specifically indicated otherwise. [employer]'s drug information does not endorse drugs, diagnose patients or recommend therapy. [facility] drug information isan informational resource designed to [...] effective or appropriate for any given patient. [facility] does not assume any responsibility for any aspect of healthcare administered with the aid of information [facility] provides. The information contained herein is not intended to cover all possible uses, directions, precautions, warnings, drug interactions, allergic reactions, or adverse effects. If you have questions about the drugs you are taking, check with your doctor, nurse or pharmacist. Copyright 7225-2376 [facility]. Version: 08.05. Revision Date: 11/19/2020. lidocaine topical (LYE mehta joseph TOP i maria alejandra) AneCream, Bactine, Glydo, LidaMantle, Lidoderm, LidoRx, Medi-Quik [place], RadiaGuard, RectiCare, Regenecare NIELSEN [place], Solarcaine Cool Aloe What is the most [...] may report side effects to FDA at 3-857-ICI-2001. What other drugs will affect lidocaine topical? Medicine used on the skin is not likely to be affected by other drugs you use. But many drugs can interact with each other. Tell each of your health care providers about all medicines you use, including prescription and vfne-juw-cnvnjnv medicines, vitamins, and herbal products. Where can I get more information? Your pharmacist can provide more information about lidocaine topical. Remember, keep this and all other medicines out of the reach of children, never share your medicines with others, and use this medication only for the indication prescribed. Every effort has been made to ensure that the information provided by [employer]. ('Multum') is accurate, up-to-date, and complete, but no guarantee is made to that effect. Drug information contained herein may be time sensitive. [employer] information has been compiled for use by healthcare practitioners and consumers in the [place] and therefore [employer] does not warrant that uses outside of the [place] are appropriate, unless specifically indicated otherwise. [employer] drug information does not endorse drugs, diagnose patients or recommend therapy. [employer] drug information isan informational resource designed to [...] effective or appropriate for any given patient. [employer] does not assume any responsibility for any aspect of healthcare administered with the aid of information [employer] provides. The information contained herein is not intended to cover all possible uses, directions, precautions, warnings, drug interactions, allergic reactions, or adverse effects. If you have questions about the drugs you are taking, check with your doctor, nurse or pharmacist. Copyright 5313-6113 Re-[employer]. Version: 9.02. Revision Date: 03/21/2022. Education Materials [...] are taking other medicines. You may use stof-uqo-lynsffl medicine as directed on the bottle to [...] Numbness in the groin or genital area 9236-[address] [employer]. [address] [place] [address]. All rights reserved. This information is not intended as a substitute for professional medical care. Always follow yourhealthcare professional's instructions. Additional Information VACCINATE! IT SAVES LIVES! Members of the community who have not yet received the COVID-19 vaccine and would like to receive it can visit one of [facility] vaccine clinics. There are many vaccine clinic locations within the [facility]. For locations and available times, please visit [email or web address]. It is important to note that some COVID mobile vaccine clinics are held outdoors and may be canceled in rainy orstormy conditions. To learn more about pediatric vaccinations (ages 5-11), we invite you to visit the [facility] webpage. [email or web address] learn more about the COVID-19 vaccine, we invite you to visit the [facility] website for a list of frequently asked questions. [email or web address] [email or web address] Patient Portal Access Instructions: Stay connected with your healthcare team and access your personal medical information anytime with the [facility] Patient Portal. If you would like a full copy of your medical records please contact the [facility] Medical Records Department Sunday through Sunday between 8a.m. and 4:30p.m. Please follow the directions below to access the portal: 1.Access the email account you provided upon registration to the [facility].2.Look for an invitation email from [facility].3.Open the email and access the invitation link: Accept Invitation to [facility]4.Fill in the required garrison to create your account. Sign into [email or web address] with your username and password that you [...] you will allow to register on the [facility] Patient Portal for access to your information. You can also access the [facility] Patient Portal on the [employer]. Simply click on Health Records under WhoCanHelp.comta and then click on the Twonq logo. HOW TO SAFELY DISPOSE OF PRESCRIPTION [...] Call your local pharmacy or go to [email or web address] to find one close to you.3.Make use of household items: Use cat litter or old coffee grounds to dispose medications if other options arenot available. Mix your drugs with these household products, seal them in an airtight container andthrow it into the garbage. Call [facility]: [phone] to be sure your drugs can be [...] aware that I should contact my doctor. 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 Signature: Date/Time: Relationship to Patient: Witness Name/Signature: Date/Time: [facility] summary Author Major Mejia [facility] June 05, 2023 6:37am Note Date/Time June 05, 2023 6:2 6am [facility] Medical Records Department [address] [place] [address] Emergency Department Summary 06/05/23 MR#: [id number] Acct: [id number] Name: DAYNA AVALOS Rep #:[id number] : 1990 32 From: Major Mejia DO PCP: [facility] St atus:REG ER Location: ED HPI History [...] % (Auto) 64.4 Lymph % (Auto) 29.9 Callahan % (Auto) 4.8 Eos % (Auto) 0.1 [...] BID Qty: 20 0RF [facility] [Primary Care Provider] - Disposition Disposition: Home, Self Care What to do if you have Problems For any increased pain, shortness of breath, bleeding, nausea or vomiting, chestpain, or any unexpected problems, contact your Primary Care Provider. Call [facility] ([phone]) or report to the closest Emergency Room. Call 911 if necessary. 06/05/23 0637 <Electronically signed by Major Mejia DO> Cosigner Signature (if applicable): CC: [facility] ~ Signed [facility] Work Phone: Evaluation + Plan note No data available for this section [facility] Evaluation noteNo assessment information available [facility] Work Phone: Evaluation note* Diagnosis History of delivery- Primary [facility] Diagnosis Hyperglycemia in (HHS-HCC)- Primary Hyperglycemia in ([facility]) Insulin controlled gestational diabetes mellitus (GDM) in second trimester ([facility]) Gestational hypertension, second trimester ([facility]) Gestational hypertension, second trimester ([facility]) Insulin controlled gestational diabetes mellitus (GDM) in second trimester ([facility]) documented in this encounter [facility] Work Phone: Evaluation note* Diagnosis Hyperglycemia in (HHS-HCC)- Primary Insulin controlled gestational diabetes mellitus (GDM) in second trimester ([facility]) Gestational hypertension, second trimester ([facility]) 26 weeks gestation of ([facility]) Screening, , for anatomic survey ([facility]) Encounter for anatomic survey Encounter for follow-up ultrasound of anatomy Gestational diabetes requiring insulin ([facility]) Abnormal maternal glucose tolerance, complicating , childbirth, or the puerperium, unspecified as to episode of care AMA (advanced maternal age) multigravida 35+ ([facility]) Obesity affecting ([facility]) documented in this encounter [facility] Work Phone: Evaluation note* Diagnosis Gestational hypertension, second trimester (HHS-HCC)- Primary 26 weeks gestation of ([facility])- Primary Insulin controlled gestational diabetes mellitus (GDM) in second trimester ([facility]) Gestational hypertension, second trimester ([facility]) Hyperglycemia in ([facility]) Crohn's disease with complication, unspecified gastrointestinal tract location Depression affecting in second trimester, antepartum ([facility]) Anxiety during in second trimester, antepartum ([facility]) headache in second trimester ([facility])- Primary Gestational hypertension, second trimester ([facility]) Insulin controlled gestational diabetes mellitus (GDM) in second trimester ([facility]) 27 weeks gestation of ([facility]) Gastroesophageal reflux disease without esophagitis Esophageal reflux Crohn's disease with complication, unspecified gastrointestinal tract location Gestational hypertension, second trimester ([facility]) documented in this encounter [facility] Work Phone: Evaluation note* Diagnosis 26 weeks gestation of ([facility])- Primary Insulin controlled gestational diabetes mellitus (GDM) in second trimester ([facility]) Gestational hypertension, second trimester ([facility]) Hyperglycemia in ([facility]) Crohn's disease with complication, unspecified gastrointestinal tract location Depression affecting in second trimester, antepartum ([facility]) Anxiety during in second trimester, antepartum ([facility]) headache in second trimester ([facility])- Primary Gestational hypertension, second trimester ([facility]) Insulin controlled gestational diabetes mellitus (GDM) in second trimester ([facility]) 27 weeks gestation of ([facility]) Gastroesophageal reflux disease without esophagitis Esophageal reflux Crohn's disease with complication, unspecified gastrointestinal tract location Screening, , for anatomic survey ([facility]) Encounter for anatomic survey Gestational hypertension ([facility]) Unspecified hypertension complicating , childbirth, or the puerperium, unspecified as to episode of care Obesity affecting ([facility]) Gestational diabetes mellitus (GDM) AMA (advanced maternal age) multigravida 35+ ([facility]) documented in this encounter [facility] Work Phone: Evaluation note* Diagnosis 26 weeks gestation of ([facility])- Primary Insulin controlled gestational diabetes mellitus (GDM) in second trimester ([facility]) Gestational hypertension, second trimester ([facility]) Hyperglycemia in ([facility]) Crohn's disease with complication, unspecified gastrointestinal tract location Depression affecting in second trimester, antepartum ([facility]) Anxiety during in second trimester, antepartum ([facility]) headache in second trimester ([facility])- Primary Gestational hypertension, second trimester ([facility]) Insulin controlled gestational diabetes mellitus (GDM) in second trimester ([facility]) 27 weeks gestation of ([facility]) Gastroesophageal reflux disease without esophagitis Esophageal reflux Crohn's disease with complication, unspecified gastrointestinal tract location Screening, , for anatomic survey ([facility]) Encounter for anatomic survey Obesity affecting in third trimester ([facility]) Gestational diabetes mellitus (GDM) requiring insulin ([facility]) Gestational hypertension w/o significant proteinuria in 3rd trimester ([facility]) 28 weeks gestation of ([facility])- Primary Gestational hypertension, second trimester ([facility]) Insulin controlled gestational diabetes mellitus (GDM) in second trimester ([facility]) Anxiety during in second trimester, antepartum ([facility]) History of HELLP syndrome, currently ([facility]) with other poor obstetric history Depression affecting in second trimester, antepartum ([facility]) History of loop electrosurgical excision procedure (LEEP) of cervix affecting in second trimester ([facility]) headache in second trimester ([facility]) Headache in , antepartum ([facility]) psychosis (Multi) Mental disorders of mother, complicating , childbirth, or the puerperium, unspecified as to episode of care documented in this encounter [facility] Work Phone: Evaluation note* Diagnosis 26 weeks gestation of ([facility])- Primary Insulin controlled gestational diabetes mellitus (GDM) in second trimester ([facility]) Gestational hypertension, second trimester ([facility]) Hyperglycemia in ([facility]) Crohn's disease with complication, unspecified gastrointestinal tract location Depression affecting in second trimester, antepartum ([facility]) Anxiety during in second trimester, antepartum ([facility]) headache in second trimester ([facility])- Primary Gestational hypertension, second trimester ([facility]) Insulin controlled gestational diabetes mellitus (GDM) in second trimester ([facility]) 27 weeks gestation of ([facility]) Gastroesophageal reflux disease without esophagitis Esophageal reflux Crohn's disease with complication, unspecified gastrointestinal tract location 28 weeks gestation of ([facility])- Primary Gestational hypertension, second trimester ([facility]) Insulin controlled gestational diabetes mellitus (GDM) in second trimester ([facility]) Anxiety during in second trimester, antepartum ([facility]) History of HELLP syndrome, currently ([facility]) with other poor obstetric history Depression affecting in second trimester, antepartum ([facility]) History of loop electrosurgical excision procedure (LEEP) of cervix affecting in second trimester ([facility]) headache in second trimester ([facility]) Headache in , antepartum ([facility]) psychosis (Multi) Mental disorders of mother, complicating , childbirth, or the puerperium, unspecified as to episode of care Gestational hypertension, second trimester ([facility]) Insulin controlled gestational diabetes mellitus (GDM) in third trimester ([facility]) Gestational hypertension w/o significant proteinuria in 3rd trimester ([facility]) Gestational hypertension, third trimester ([facility])- Primary Insulin controlled gestational diabetes mellitus (GDM) in third trimester ([facility]) 29 weeks gestation of ([facility]) Depression affecting in second trimester, antepartum ([facility]) headache in third trimester ([facility]) Polyhydramnios in third trimester complication, single or unspecified fetus ([facility]) documented in this encounter [facility] Work Phone: Evaluation note* Diagnosis 26 weeks gestation of ([facility])- Primary Insulin controlled gestational diabetes mellitus (GDM) in second trimester ([facility]) Gestational hypertension, second trimester ([facility]) Hyperglycemia in ([facility]) Crohn's disease with complication, unspecified gastrointestinal tract location Depression affecting in second trimester, antepartum ([facility]) Anxiety during in second trimester, antepartum ([facility]) headache in second trimester ([facility])- Primary Gestational hypertension, second trimester ([facility]) Insulin controlled gestational diabetes mellitus (GDM) in second trimester ([facility]) 27 weeks gestation of ([facility]) Gastroesophageal reflux disease without esophagitis Esophageal reflux Crohn's disease with complication, unspecified gastrointestinal tract location 28 weeks gestation of ([facility])- Primary Gestational hypertension, second trimester ([facility]) Insulin controlled gestational diabetes mellitus (GDM) in second trimester ([facility]) Anxiety during in second trimester, antepartum ([facility]) History of HELLP syndrome, currently ([facility]) with other poor obstetric history Depression affecting in second trimester, antepartum ([facility]) History of loop electrosurgical excision procedure (LEEP) of cervix affecting in second trimester ([facility]) headache in second trimester ([facility]) Headache in , antepartum ([facility]) psychosis (Multi) Mental disorders of mother, complicating , childbirth, or the puerperium, unspecified as to episode of care Gestational hypertension, third trimester ([facility])- Primary Insulin controlled gestational diabetes mellitus (GDM) in third trimester ([facility]) 29 weeks gestation of ([facility]) Depression affecting in second trimester, antepartum ([facility]) headache in third trimester ([facility]) Polyhydramnios in third trimester complication, single or unspecified fetus ([facility]) Gestational hypertension, second trimester ([facility]) Insulin controlled gestational diabetes mellitus (GDM) in third trimester ([facility]) Gestational hypertension, third trimester ([facility])- Primary Insulin controlled gestational diabetes mellitus (GDM) in third trimester ([facility]) Depression affecting in third trimester, antepartum ([facility]) 30 weeks gestation of ([facility]) Polyhydramnios in third trimester complication, single or unspecified fetus ([facility]) History of HELLP syndrome, currently ([facility]) with other poor obstetric history History of loop electrosurgical excision procedure (LEEP) of cervix affecting in second trimester ([facility]) headache in third trimester ([facility]) Insulin controlled gestational diabetes mellitus (GDM) in second trimester ([facility]) [facility] Work Phone: Evaluation note* Diagnosis 26 weeks gestation of ([facility])- Primary Insulin controlled gestational diabetes mellitus (GDM) in second trimester ([facility]) Gestational hypertension, second trimester ([facility]) Hyperglycemia in ([facility]) Crohn's disease with complication, unspecified gastrointestinal tract location Depression affecting in second trimester, antepartum ([facility]) Anxiety during in second trimester, antepartum headache in second trimester ([facility])- Primary Gestational hypertension, second trimester ([facility]) Insulin controlled gestational diabetes mellitus (GDM) in second trimester ([facility]) 27 weeks gestation of ([facility]) Gastroesophageal reflux disease without esophagitis Esophageal reflux Crohn's disease with complication, unspecified gastrointestinal tract location 28 weeks gestation of ([facility])- Primary Gestational hypertension, second trimester ([facility]) Insulin controlled gestational diabetes mellitus (GDM) in second trimester ([facility]) Anxiety during in second trimester, antepartum History of HELLP syndrome, currently ([facility]) with other poor obstetric history Depression affecting in second trimester, antepartum ([facility]) History of loop electrosurgical excision procedure (LEEP) of cervix affecting in second trimester headache in second trimester ([facility]) Headache in , antepartum ([facility]) psychosis (Multi) Mental disorders of mother, complicating , childbirth, or the puerperium, unspecified as to episode of care Gestational hypertension, third trimester ([facility])- Primary Insulin controlled gestational diabetes mellitus (GDM) in third trimester ([facility]) 29 weeks gestation of ([facility]) Depression affecting in second trimester, antepartum ([facility]) headache in third trimester ([facility]) Polyhydramnios in third trimester complication, single or unspecified fetus ([facility]) Gestational hypertension, third trimester ([facility])- Primary Insulin controlled gestational diabetes mellitus (GDM) in third trimester ([facility]) Depression affecting in third trimester, antepartum ([facility]) 30 weeks gestation of ([facility]) Polyhydramnios in third trimester complication, single or unspecified fetus ([facility]) History of HELLP syndrome, currently ([facility]) with other poor obstetric history History of loop electrosurgical excision procedure (LEEP) of cervix affecting in second trimester headache in third trimester ([facility]) Insulin controlled gestational diabetes mellitus (GDM) in second trimester ([facility]) Gestational hypertension, second trimester ([facility]) Insulin controlled gestational diabetes mellitus (GDM) in third trimester ([facility]) Gestational hypertension w/o significant proteinuria in 3rd trimester ([facility]) Gestational hypertension, third trimester ([facility])- Primary Insulin controlled gestational diabetes mellitus (GDM) in third trimester ([facility]) 32 weeks gestation of ([facility]) Crohn's disease with complication, unspecified gastrointestinal tract location History of HELLP syndrome, currently ([facility]) with other poor obstetric history Depression affecting in third trimester, antepartum ([facility]) History of loop electrosurgical excision procedure (LEEP) of cervix affecting in second trimester headache in third trimester ([facility]) Polyhydramnios in third trimester complication, single or unspecified fetus ([facility]) documented in this encounter [facility] Work Phone: Evaluation note* Diagnosis 26 weeks gestation of ([facility])- Primary Insulin controlled gestational diabetes mellitus (GDM) in second trimester ([facility]) Gestational hypertension, second trimester ([facility]) Hyperglycemia in ([facility]) Crohn's disease with complication, unspecified gastrointestinal tract location Depression affecting in second trimester, antepartum ([facility]) Anxiety during in second trimester, antepartum headache in second trimester ([facility])- Primary Gestational hypertension, second trimester ([facility]) Insulin controlled gestational diabetes mellitus (GDM) in second trimester ([facility]) 27 weeks gestation of ([facility]) Gastroesophageal reflux disease without esophagitis Esophageal reflux Crohn's disease with complication, unspecified gastrointestinal tract location 28 weeks gestation of ([facility])- Primary Gestational hypertension, second trimester ([facility]) Insulin controlled gestational diabetes mellitus (GDM) in second trimester ([facility]) Anxiety during in second trimester, antepartum History of HELLP syndrome, currently ([facility]) with other poor obstetric history Depression affecting in second trimester, antepartum ([facility]) History of loop electrosurgical excision procedure (LEEP) of cervix affecting in second trimester headache in second trimester ([facility]) Headache in , antepartum ([facility]) psychosis ([facility]) Mental disorders of mother, complicating , childbirth, or the puerperium, unspecified as to episode of care Gestational hypertension, third trimester ([facility])- Primary Insulin controlled gestational diabetes mellitus (GDM) in third trimester ([facility]) 29 weeks gestation of ([facility]) Depression affecting in second trimester, antepartum ([facility]) headache in third trimester ([facility]) Polyhydramnios in third trimester complication, single or unspecified fetus ([facility]) Gestational hypertension, third trimester ([facility])- Primary Insulin controlled gestational diabetes mellitus (GDM) in third trimester ([facility]) Depression affecting in third trimester, antepartum ([facility]) 30 weeks gestation of ([facility]) Polyhydramnios in third trimester complication, single or unspecified fetus ([facility]) History of HELLP syndrome, currently ([facility]) with other poor obstetric history History of loop electrosurgical excision procedure (LEEP) of cervix affecting in second trimester headache in third trimester ([facility]) Insulin controlled gestational diabetes mellitus (GDM) in second trimester ([facility]) Gestational hypertension, third trimester ([facility])- Primary Insulin controlled gestational diabetes mellitus (GDM) in third trimester ([facility]) 32 weeks gestation of ([facility]) Crohn's disease with complication, unspecified gastrointestinal tract location History of HELLP syndrome, currently ([facility]) with other poor obstetric history Depression affecting in third trimester, antepartum ([facility]) History of loop electrosurgical excision procedure (LEEP) of cervix affecting in second trimester headache in third trimester ([facility]) Polyhydramnios in third trimester complication, single or unspecified fetus ([facility]) Severe preeclampsia, third trimester ([facility])- Primary Severe preeclampsia, third trimester ([facility]) care following vaginal delivery ([facility]) Depression affecting in third trimester, antepartum ([facility]) Gastroesophageal reflux disease, unspecified whether esophagitis present documented in this encounter [facility] Work Phone: Evaluation note* Diagnosis 26 weeks gestation of ([facility])- Primary Insulin controlled gestational diabetes mellitus (GDM) in second trimester ([facility]) Gestational hypertension, second trimester ([facility]) Hyperglycemia in ([facility]) Crohn's disease with complication, unspecified gastrointestinal tract location Depression affecting in second trimester, antepartum ([facility]) Anxiety during in second trimester, antepartum headache in second trimester ([facility])- Primary Gestational hypertension, second trimester ([facility]) Insulin controlled gestational diabetes mellitus (GDM) in second trimester ([facility]) 27 weeks gestation of ([facility]) Gastroesophageal reflux disease without esophagitis Esophageal reflux Crohn's disease with complication, unspecified gastrointestinal tract location 28 weeks gestation of ([facility])- Primary Gestational hypertension, second trimester ([facility]) Insulin controlled gestational diabetes mellitus (GDM) in second trimester ([facility]) Anxiety during in second trimester, antepartum History of HELLP syndrome, currently ([facility]) with other poor obstetric history Depression affecting in second trimester, antepartum ([facility]) History of loop electrosurgical excision procedure (LEEP) of cervix affecting in second trimester headache in second trimester ([facility]) Headache in , antepartum ([facility]) psychosis (Multi) Mental disorders of mother, complicating , childbirth, or the puerperium, unspecified as to episode of care Gestational hypertension, third trimester ([facility])- Primary Insulin controlled gestational diabetes mellitus (GDM) in third trimester ([facility]) 29 weeks gestation of ([facility]) Depression affecting in second trimester, antepartum ([facility]) headache in third [facility] Polyhydramnios in third trimester complication, single or unspecified fetus ([facility]) Gestational hypertension, third trimester ([facility])- Primary Insulin controlled gestational diabetes mellitus (GDM) in third trimester ([facility]) Depression affecting in third trimester, antepartum ([facility]) 30 weeks gestation of ([facility]) Polyhydramnios in third trimester complication, single or unspecified fetus ([facility]) History of HELLP syndrome, currently ([facility]) with other poor obstetric history History of loop electrosurgical excision procedure (LEEP) of cervix affecting in second trimester headache in third trimester ([facility]) Insulin controlled gestational diabetes mellitus (GDM) in second trimester ([facility]) Gestational hypertension, third trimester ([facility])- Primary Insulin controlled gestational diabetes mellitus (GDM) in third trimester ([facility]) 32 weeks gestation of ([facility]) Crohn's disease with complication, unspecified gastrointestinal tract location History of HELLP syndrome, currently ([facility]) with other poor obstetric history Depression affecting in third trimester, antepartum ([facility]) History of loop electrosurgical excision procedure (LEEP) of cervix affecting in second trimester headache in third trimester ([facility]) Polyhydramnios in third trimester complication, single or unspecified fetus ([facility]) Severe preeclampsia, third trimester ([facility])- Primary Insulin controlled gestational diabetes mellitus (GDM) in second trimester ([facility]) documented in this encounter [facility] Work Phone: Evaluation note* Diagnosis 26 weeks gestation of ([facility])- Primary Insulin controlled gestational diabetes mellitus (GDM) in second trimester ([facility]) Gestational hypertension, second trimester ([facility]) Hyperglycemia in ([facility]) Crohn's disease with complication, unspecified gastrointestinal tract location Depression affecting in second trimester, antepartum ([facility]) Anxiety during in second trimester, antepartum headache in second trimester ([facility])- Primary Gestational hypertension, second trimester ([facility]) Insulin controlled gestational diabetes mellitus (GDM) in second trimester ([facility]) 27 weeks gestation of ([facility]) Gastroesophageal reflux disease without esophagitis Esophageal reflux Crohn's disease with complication, unspecified gastrointestinal tract location Gestational hypertension, third trimester ([facility])- Primary Insulin controlled gestational diabetes mellitus (GDM) in third trimester ([facility]) 29 weeks gestation of ([facility]) Depression affecting in second trimester, antepartum ([facility]) headache in third trimester ([facility]) Polyhydramnios in third trimester complication, single or unspecified fetus ([facility]) Gestational hypertension, third trimester ([facility])- Primary Insulin controlled gestational diabetes mellitus (GDM) in third trimester ([facility]) Depression affecting in third trimester, antepartum ([facility]) 30 weeks gestation of ([facility]) Polyhydramnios in third trimester complication, single or unspecified fetus ([facility]) History of HELLP syndrome, currently ([facility]) with other poor obstetric history History of loop electrosurgical excision procedure (LEEP) of cervix affecting in second trimester headache in third trimester ([facility]) Insulin controlled gestational diabetes mellitus (GDM) in second trimester ([facility]) Benign essential HTN- Primary Fatigue, unspecified [...] state, unspecified documented in this encounter [facility] Work Phone: Evaluation note* Diagnosis 26 weeks gestation of ([facility])- Primary Insulin controlled gestational diabetes mellitus (GDM) in second trimester ([facility]) Gestational hypertension, second trimester ([facility]) Hyperglycemia in ([facility]) Crohn's disease with complication, unspecified gastrointestinal tract location Depression affecting in second trimester, antepartum ([facility]) Anxiety during in second trimester, antepartum headache in second trimester ([facility])- Primary Gestational hypertension, second trimester ([facility]) Insulin controlled gestational diabetes mellitus (GDM) in second trimester ([facility]) 27 weeks gestation of ([facility]) Gastroesophageal reflux disease without esophagitis Esophageal reflux Crohn's disease with complication, unspecified gastrointestinal tract location Gestational hypertension, third trimester ([facility])- Primary Insulin controlled gestational diabetes mellitus (GDM) in third trimester ([facility]) 29 weeks gestation of ([facility]) Depression affecting in second trimester, antepartum ([facility]) headache in third trimester ([facility]) Polyhydramnios in third trimester complication, single or unspecified fetus ([facility]) Gestational hypertension, third trimester ([facility])- Primary Insulin controlled gestational diabetes mellitus (GDM) in third trimester ([facility]) Depression affecting in third trimester, antepartum ([facility]) 30 weeks gestation of ([facility]) Polyhydramnios in third trimester complication, single or unspecified fetus ([facility]) History of HELLP syndrome, currently ([facility]) with other poor obstetric history History of loop electrosurgical excision procedure (LEEP) of cervix affecting in second trimester headache in third trimester ([facility]) Insulin controlled gestational diabetes mellitus (GDM) in second trimester ([facility]) Encounter for visit- Primary History of gestational diabetes Personal history of other genital system and obstetric disorders Counseling for initiation of control method History of pre-eclampsia Bilateral lower extremity edema documented in this encounter [facility] Work Phone: Evaluation note* Diagnosis 26 weeks gestation of ([facility])- Primary Insulin controlled gestational diabetes mellitus (GDM) in second trimester ([facility]) Gestational hypertension, second trimester ([facility]) Hyperglycemia in ([facility]) Crohn's disease with complication, unspecified gastrointestinal tract location Depression affecting in second trimester, antepartum ([facility]) Anxiety during in second trimester, antepartum headache in second trimester ([facility])- Primary Gestational hypertension, second trimester ([facility]) Insulin controlled gestational diabetes mellitus (GDM) in second trimester ([facility]) 27 weeks gestation of ([facility]) Gastroesophageal reflux disease without esophagitis Esophageal reflux Crohn's disease with complication, unspecified gastrointestinal tract location Gestational hypertension, third trimester ([facility])- Primary Insulin controlled gestational diabetes mellitus (GDM) in third trimester ([facility]) 29 weeks gestation of ([facility]) Depression affecting in second trimester, antepartum ([facility]) headache in third trimester ([facility]) Polyhydramnios in third trimester complication, single or unspecified fetus ([facility]) Gestational hypertension, third trimester ([facility])- Primary Insulin controlled gestational diabetes mellitus (GDM) in third trimester ([facility]) Depression affecting in third trimester, antepartum ([facility]) 30 weeks gestation of ([facility]) Polyhydramnios in third trimester complication, single or unspecified fetus ([facility]) History of HELLP syndrome, currently ([facility]) with other poor obstetric history History of loop electrosurgical excision procedure (LEEP) of cervix affecting in second trimester headache in third trimester ([facility]) Insulin controlled gestational diabetes mellitus (GDM) in second trimester ([facility]) Encounter for visit- Primary History of gestational diabetes Personal history of other genital system and obstetric disorders Counseling for initiation of control method History of pre-eclampsia Bilateral lower extremity edema Type 2 diabetes mellitus without complication, with long-term current use of insulin- Primary Benign essential HTN Other insomnia Healthcare maintenance Hypomagnesemia Disorders of magnesium metabolism documented in this encounter [facility] Work Phone: Evaluation note* Diagnosis 26 weeks gestation of ([facility])- Primary Insulin controlled gestational diabetes mellitus (GDM) in second trimester ([facility]) Gestational hypertension, second trimester ([facility]) Hyperglycemia in ([facility]) Crohn's disease with complication, unspecified gastrointestinal tract location Depression affecting in second trimester, antepartum ([facility]) Anxiety during in second trimester, antepartum headache in second trimester ([facility])- Primary Gestational hypertension, second trimester ([facility]) Insulin controlled gestational diabetes mellitus (GDM) in second trimester ([facility]) 27 weeks gestation of ([facility]) Gastroesophageal reflux disease without esophagitis Esophageal reflux Crohn's disease with complication, unspecified gastrointestinal tract location Gestational hypertension, third trimester ([facility])- Primary Insulin controlled gestational diabetes mellitus (GDM) in third trimester ([facility]) 29 weeks gestation of ([facility]) Depression affecting in second trimester, antepartum ([facility]) headache in third trimester ([facility]) Polyhydramnios in third trimester complication, single or unspecified fetus ([facility]) Gestational hypertension, third trimester ([facility])- Primary Insulin controlled gestational diabetes mellitus (GDM) in third trimester ([facility]) Depression affecting in third trimester, antepartum ([facility]) 30 weeks gestation of ([facility]) Polyhydramnios in third trimester complication, single or unspecified fetus ([facility]) History of HELLP syndrome, currently ([facility]) with other poor obstetric history History of loop electrosurgical excision procedure (LEEP) of cervix affecting in second trimester headache in third trimester ([facility]) Insulin controlled gestational diabetes mellitus (GDM) in second trimester ([facility]) Encounter for visit- Primary History of gestational diabetes Personal history of other genital system and obstetric disorders Counseling for initiation of control method History of pre-eclampsia Bilateral lower extremity edema Morbid obesity with BMI of 50.0-59.9, adult (Multi)- Primary Type 2 diabetes mellitus without complication, with long-term current use of insulin Other physical and mental strain related to work Other insomnia Hypertension associated with diabetes Unspecified essential hypertension Skin candidiasis Candidiasis of skin and nails documented in this encounter [facility] Work Phone: Hospital Discharge instructions Additional Instructions CT scan negative. Labs are all stable. Hemoglobin 12.6. Monitor symptoms. Follow-up with GI as an outpatient. Return if any worsening symptoms.[facility] Work Phone: Hospital Discharge instructions* Attachments The following attachments cannot be sent through Care Everywhere. * Managing acute pain at home (Guinean) * Deciding to breastfeed (Guinean) * Gestational diabetes ([place]) [facility]: [facility] Discharge instructions* Attachments The following attachments cannot be sent through Care Everywhere. * Managing acute pain at home (Guinean) * Deciding to breastfeed (Guinean) * Gestational diabetes (Guinean) [facility] Discharge instructions* Attachments The following attachments cannot be sent through Care Everywhere. * Managing acute pain at home (Guinean) * Deciding to breastfeed (Guinean) * Gestational diabetes (Guinean) [facility]: Hospital Discharge instructions* Attachments The following attachments cannot be sent through Care Everywhere. * Managing acute pain at home (Guinean) * Deciding to breastfeed (Guinean) * Gestational diabetes (Guinean) [facility]: Hospital Discharge instructions* Attachments The following attachments cannot be sent through Care Everywhere. * Managing acute pain at home (Guinean) * Deciding to breastfeed (Guinean) * Gestational diabetes ([place]ine[place]) [facility] Work Phone: Hospital Discharge instructions* Attachments The following attachments cannot be sent through Care Everywhere. * Managing acute pain at home (Guinean) * Deciding to breastfeed (Guinean) * Gestational diabetes ([place]) [facility] Work Phone: Hospital Discharge instructions* Attachments The following attachments cannot be sent through Care Everywhere. * Managing acute pain at home (Guinean) * Deciding to breastfeed (Guinean) * Gestational diabetes ([place]inean) [facility] Work Phone: Hospital Discharge instructions* Attachments The following attachments cannot be sent through Care Everywhere. * Managing acute pain at home (Guinean) * Deciding to breastfeed (Guinean) * Gestational diabetes (Guinean) [facility] Work Phone: reason for visit Narrative* Imaging (Routine) - Pending Review Specialty Diagnoses / Procedures Referred By Contac t Referred To Contact Radiology Diagnoses Encounter for follow-up ultrasound of anatomy Gestational diabetes requiring insulin ([facility]) AMA (advanced maternal age) multigravida 35+ ([facility]) Obesity affecting ([facility]) Procedures US OB follow UP transabdominal approach US biophysical [place] [address] [place] [address] Phone: tel: fax: Referral ID Status Reason Start Date Expiration Date Visits Requested Visits Authorized [id number] Pending Review Perform Procedure 12/25/2024 12/25/2025 1 1 [facility] Work Phone: reason for visit Narrative* Imaging (Routine) - Pending Review Specialty Diagnoses / Procedures Referred By Contac t Referred To Contact Radiology Diagnoses Gestational hypertension ([facility]) Obesity affecting ([facility]) Gestational diabetes mellitus (GDM) AMA (advanced maternal age) multigravida 35+ ([facility]) Procedures US OB limited 1+ fetuses [place] [address] [place] [address] Phone: tel: fax: Referral ID Status Reason Start Date Expiration Date Visits Requested Visits Authorized [id number] Pending Review Perform Procedure 12/23/2024 12/23/2025 1 1 [facility] Work Phone: Reason for visit Narrative* Imaging (Routine) - Pending Review Specialty Diagnoses / Procedures Referred By Contac t Referred To Contact Radiology Diagnoses Obesity affecting in third trimester ([facility]) Gestational diabetes mellitus (GDM) requiring insulin ([facility]) Gestational hypertension w/o significant proteinuria in 3rd trimester ([facility]) Procedures US OB follow UP transabdominal approach US biophysical [place] [address] [place] [id number] Phone: tel: fax: Referral ID Status Reason Start Date Expiration Date Visits Requested Visits Authorized [id number] Pending Review Perform Procedure 01/15/2025 01/15/2026 1 1 [facility] Work Phone: reason for visit Narrative* Imaging (Routine) - Pending Review Specialty Diagnoses / Procedures Referred By Contac t Referred To Contact Radiology Diagnoses Insulin controlled gestational diabetes mellitus (GDM) in third trimester ([facility]) Gestational hypertension w/o significant proteinuria in 3rd trimester ([facility]) Procedures US OB limited 1+ fetuses US biophysical profile wo non stress testing Jose Guadalupe Gupta MD [address] [facility] [place] [address] Phone: tel: fax: Referral ID Status Reason Start Date Expiration Date Visits Requested Visits Authorized [id number] Pending Review Perform Procedure 01/09/2025 01/09/2026 1 1 [facility] Work Phone: reason for visit Narrative* Imaging (Routine) - Pending Review Specialty Diagnoses / Procedures Referred By Contac t Referred To Contact Radiology Diagnoses Gestational hypertension, second trimester ([facility]) Insulin controlled gestational diabetes mellitus (GDM) in third trimester ([facility]) Procedures US OB limited 1+ fetuses US biophysical profile wo non stress testing Jose Guadalupe Gupta MD [address] [place] [address] Phone: tel: fax: Referral ID Status Reason Start Date Expiration Date Visits Requested Visits Authorized [id number] Pending Review Perform Procedure 01/09/2025 01/09/2026 1 1 [facility] Work Phone: Reason for visit Narrative* [...] Jose Guadalupe Gupta MD [address] [place] [address] Phone: tel: fax: Referral ID Status Reason Start Date Expiration Date Visits Requested Visits Authorized [id number] Pending Review Perform Procedure 01/09/2025 01/09/2026 1 1 [facility] Work Phone: Summary Purpose Family History [...] Will No August 18 4:21pm Power of Insurance Risk Analyst No August 18, 2022 4:21pm Advance Directive Response Recorded Date/ Time Living Will No October 26 10:59am Power of Insurance Risk Analyst No October 26, 2022 10:59am Advance Directive Response Recorded Date/ Time Living Will No December 14 9:19pm Power of Insurance Risk Analyst No December 14, 2022 9:19pm Advance Directive Response Recorded Date/ Time Living Will No January 21, 2023 4:03pm Power of Insurance Risk Analyst No January 21 4:03pm Advance Directive Response Recorded Date/ Time Living Will No June 05, 2023 5:42am Power of Insurance Risk Analyst No June 05 5:42am Advance Directive Response Recorded Date/ Time Living Will No October 25 023 4:32pm Power of Insurance Risk Analyst No October 25, 2023 4:32pm Advance Directive Response Recorded Date/ Time Living Will No November 17 2:59am Power of Insurance Risk Analyst No November 17, 2023 2:59am Advance Directive Response Recorded Date/ Time Living Will No December 05 7:53am Power of Insurance Risk Analyst No December 05, 2023 7:53am Advance Directive Response Recorded Date/ Time Living Will No February 22, 2024 3:50pm Power of Insurance Risk Analyst No February 21 3:50pm Date Activated Date [...] original. DISCHARGE SUMMARY Patient: Dayna Avalos Account: [id number] Admitted: 09/03/2018 Discharge Date/Time: No discharge date for patient encounter. Clinical Summary [facility] [place] Dayna Avalos Admitted: 09/03/2018 Discharge [...] Physician(s) Follow Up: Raghu Lindsey MD [address] [place] [address] Follow up You have been scheduled to followup with LILI Barroso at our [facility] office to discuss UTI prevention for 10/02/18 at 1:45pm. Arrive at 1:15pm. Please bring insurance card and photo ID. Freddie Tinoco PA-C [id number] [address] Schedule an appointment as soon as possible for a visit in 1 week(s) Generic [facility] [place] Hospitalists [address] [place] [phone] Follow up call with questions related [...] NOTE Patient Name: Dayna Tinsley MR #: [id number] Assessment and Plan: 1. Pyelonephritis - E [...] capsule 300 mg 300 mg Oral Q12H [facility] Arianne Vargas MD dronabinol (MARINOL) capsule [...] solution 3 mL 3 mL Inhalation Q6H [facility] Noa Soria MD 3 mL at 09/08/18 0816 naloxone (NARCAN) injection 0.1 mg 0.1 mg Intravenous PRN Chase Santana MD naloxone (NARCAN) injection 0.4 mg 0.4 mg Intravenous PRN Chase Santana MD prochlorperazine (COMPAZINE) injection 5 mg 5 mg Intravenous Q4H Felecia Arteaga, LEAD NET SOFTWARE DEVELOPER 5 mg at 09/08/18 09 QUEtiapine (SEROQUEL) tablet 200 mg 200 mg Oral BID Chase Santana MD 200 mg at 09/08/18 0927 sodium [...] NOTE Patient Name: Dayna Tinsley MR #: [id number] Assessment and Plan: 1. Pyelonephritis - E [...] (premix) 2,000 mg Intravenous Q8H Luisa Vasques [facility],PharmD Stopped at 09/07/18 0631 dronabinol (MARINOL) [...] solution 3 mL 3 mL Inhalation Q6H [facility] Noa Jairo Soria MD 3 mL at 09/07/18 0325 ketorolac (TORADOL) injection 30 mg 30 mg Intravenous Q6H PRN Arianne Vargas MD 30 mg at 09/06/18 2331 naloxone (NARCAN) injection 0.1 mg 0.1 mg Intravenous PRN Chase Santana MD naloxone (NARCAN) injection 0.4 mg 0.4 mg Intravenous PRN Chase Santana MD prochlorperazine (COMPAZINE) injection 5 mg 5 mg Intravenous Q4H Felecia Arteaga, LEAD NET SOFTWARE DEVELOPER 5 mg at 09/07/18 0932 QUEtiapine (SEROQUEL) [...] NOTE Patient Name: Dayna Tinsley MR #: [id number] Assessment/Plan: Acute pyelonephritis Assessment & Plan B/L pyelo with no evidence of obstruction or stones on CT Afeb last 24 hours. No UCx results available. No urinary complaints. No surgical intervention required. We will sign off F/u on at our [facility] office to discuss UTI prevention for [...] about her keiko and being brought up Anabaptism. She shared some challenging and difficult circumstances in her immediate family that has led to loss and tragedy. Pt. Visit interrupted by vocera call and I stated I would return to the pt's room shortly RECOMMENDATION: Harry Wynne Staff surgeon assistant [phone] 09/06/18 1800 Clinical Encounter Type Visit Type Non Crisis Non Crisis Visit Rounding Visited With Patient Visit Length (minutes) 16-30 Referral From Patient Patient Spiritual Assessment Spiritual Assessed Yes Restorationist Affiliation Arianne Bates MD - 09/06/2018 3:37 [...] NOTE Patient Name: Dayna Tinsley MR #: [id number] Assessment and Plan: 1. Pyelonephritis - E [...] (premix) 2,000 mg Intravenous Q8H Luisa Vasques [facility],PharmD Stopped at 09/06/18 0552 dronabinol (MARINOL) [...] mg 5 mg Intravenous Q4H Felecia Florina [place], [facility] 5 mg at 09/06/18 1050 QUEtiapine (SEROQUEL) tablet 200 mg 200 mg Oral BID Chase Santana MD 200 mg at 09/06/18 0841 scopolamine (TRANSDERM-SCOP) 1 mg over 3 days patch 1 patch 1 patch Transdermal Once [facility], [facility] 1 patch at 09/03/182005 sodium chloride [...] NOTE Patient Name: Dayna Tinsley MR #: [id number] Assessment and Plan: 1. Pyelonephritis - E [...] (premix) 2,000 mg Intravenous Q8H Luisa Vasques [facility],PharmD 200 mL/hr at 09/05/18 0520 2,000 [...] mg 0.25 mg Intravenous Q4H PRN Felecia Florina Arteaga, CNP0.25 mg at 09/05/18 0804 ketorolac [...] mg 5 mg Intravenous Q4H Felecia Arteaga, LEAD NET SOFTWARE DEVELOPER 5 mg at 09/05/18 1059 QUEtiapine (SEROQUEL) tablet 200 mg 200 mg Oral BID Chase Santana MD 200 mg at 09/05/18 0809 scopolamine (TRANSDERM-SCOP) 1 mg over 3 days patch 1 patch 1 patch Transdermal Once Felecia Hafsa [facility] 1 patch at 09/03/182005 sodium chloride [...] facilitated conversation with pt who identifies as Christianity and finds strength/meaning/comfort in their yazdanism tradition. Pt expressed her exhaustion and I left pt to rest. Educated pt on role and availability of pastoral care. No further pastoral care requested. Recommend- Visit w pt and family PRN Rev. Roderick Graham MDiv Resident Making Machine Catcher, Pastoral Care [facility] * Harriet Bustamante RN - 09/04/2018 8:32 AM EDT COMPLEX [...] pyelonephritis. ID c/s pending. Urology c/s pending. [facility] will follow for possibledischarge needs. in this [...] section and content) DATE CREATED AUTHOR 04/30/2018 [facility] DATE CREATED AUTHOR AUTHOR'S ORGANIZ ATION 05/01/2018 [facility] DATE CREATED AUTHOR AUTHOR'S ORGANIZ ATION 08/24/2018 [facility] DATE CREATED AUTHOR AUTHOR'S ORGANIZ ATION 09/06/2018 [facility] DATE CREATED AUTHOR AUTHOR'S ORGANIZ ATION 10/08/2018 [facility] DATE CREATED AUTHOR AUTHOR'S ORGANIZ ATION 10/12/2018 [facility] DATE CREATED AUTHOR AUTHOR'S ORGANIZ ATION 10/13/2018 [facility] DATE CREATED AUTHOR AUTHOR'S ORGANIZ ATION 02/11/2019 [facility] DATE CREATED AUTHOR AUTHOR'S ORGANIZ ATION 04/09/2019 [facility] DATE CREATED AUTHOR AUTHOR'S ORGANIZ ATION 04/11/2019 [facility] DATE CREATED AUTHOR AUTHOR'S ORGANIZ ATION 04/13/2019 [facility] DATE CREATED AUTHOR AUTHOR'S ORGANIZ ATION 10/24/2021 [facility] DATE CREATED AUTHOR AUTHOR'S ORGANIZ ATION 01/12/2023 [facility] DATE CREATED AUTHOR AUTHOR'S ORGANIZ ATION 03/15/2023 [facility] DATE CREATED AUTHOR AUTHOR'S ORGANIZ ATION 06/07/2023 [facility] DATE CREATED AUTHOR AUTHOR'S ORGANIZ ATION 11/19/2024 [facility] DATE CREATED AUTHOR AUTHOR'S ORGANIZ ATION 12/11/2024 [facility] CREATED AUTHOR AUTHOR'S ORGANIZ ATION 02/26/2025 [facility] DATE CREATED AUTHOR AUTHOR'S ORGANIZ ATION 03/11/2025 [facility] DATE CREATED AUTHOR AUTHOR'S ORGANIZ ATION 05/15/2025 [facility] DATE CREATED AUTHOR AUTHOR'S ORGANIZ ATION 08/18/2025 [facility] DATE CREATED AUTHOR AUTHOR'S ORGANIZ ATION 09/11/2025 [facility] Reason for Visit (unrecogniz ed section and content) Reason Comments Headache Specialty Diagnoses / Procedures Referred By Britta t Referred To Contact Diagnoses Hyperglycemia in ([facility]) Procedures Celena Carty, [employer] UTILITY 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 [address] [place] [address] Phone: tel: fax: [facility] hospital 4 [address] [place] [address] Phone: tel: Referral ID Status Reason Start Date Expiration Date Visits Re quested Visits Authorized [id number] 1 1 Reason Comments Nausea Emesis Abdominal [...] risk she can be referred back to [facility]. Procedures Referral to OBGYN office. [address] [address] Phone: tel: [address] [address] Phone: tel: fax: Referral ID Status Reason Start Date Expiration Date Visits Re quested Visits Authorized [id number] Closed 11/17/2024 05/16/2025 1 1 Reason Comments Hyperglycemia Reason Comments Hypertension Headache Nausea/Vomiting In Specialty Diagnoses / Procedures Referred By Contac t Referred To Contact Diagnoses Hyperglycemia in ([facility]) Procedures Celena Carty, [employer] UTILITY 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 [address] [place] [address] Phone: tel: fax: [facility] [address] [place] [address] Phone: tel: Reason Comments Contractions Hypertension Specialty Diagnoses / Procedures Referred By Contac t Referred To Contact Diagnoses Severe preeclampsia, third trimester ([facility]) Procedures ip LilyDhara quinn [place], [employer] UTILITY 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 [address] Department [place] [address] Phone: tel: fax: Critical access hospital 2 Obstetrics and Gynecology [address] [place] [address] Phone: tel: Referral ID Status Reason Start Date Expiration Date Visits Re quested Visits Authorized [id number] 1 1 Reason Comments New Patient Visit NEW PT WANTING BACK ON OZEMPIC Reason Comments Follow-up Patient lAvina is here MFM 1. Patient is here for a PPV , No pain , No falls . BS 123 BP 128/77 HR 110 Reason Comments Follow-up 6 week fu (ozempic) having trouble sleeping Reason Comments Follow-up 1.5 month fu Chase Santana MD - 09/03/2018 12:58 PM EDT H&P Notes (unrecognized sect ion and content) Formatting of this note may be different from the original. [facility] History and Physical Patient Name: Dayna Tinsley : 1990 MR #: [id number] Admit Date: 10291112 Physicians: Freddie Tinoco PA-C [...] Lying) Pulse (!) 125 Temp (!) 100.8 F (38.2 C ) (Oral) Resp (!) 24 SpO2 96% ? [...] Dayna Tinsley Admit Date: 10291112 MR #: [id number] : 1990 Assessment and Plan: 1. Pyelonephritis - E coli from urine from 08/31. Ancef reasonable. May take a few days to defervesce. 2. Crohn's - Per primary. 3. RA - Per primary. Disposition Comments: Monitor on Ancef. Physicians: Freddie Tinoco PA-C (Family); [facility] Chief Complaint/Reason for Visit: sepsis, pyelonephritis, recent [...] Daily Chase Santana MD Stopped at 09/03/18 183 ceFAZolin (ANCEF) IVPB 1 g (premix) 1,000 mg Intravenous Q12H Chase Santana MD Stopped at 09/04/18 0313 dronabinol (MARINOL) capsule 5 mg 5 mg Oral Q8H PRN Chase Santana MD 5 mg at 09/04/18 0115 DULoxetine (CYMBALTA) DR capsule 60 mg 60 mg Oral Daily Chase Santana MD Stopped at 09/03/18 183 enoxaparin (LOVENOX) [...] Felecia Arteaga CNP 5 mg at 09/04/18 06 QUEtiapine (SEROQUEL) tablet 200 mg 200 mg Oral BID Chase Santana MD 200 mg at 09/03/182252 scopolamine (TRANSDERM-SCOP) [...] Position: Lying) Pulse (!) 121 Temp 99.7 F (37.6 C ) Resp 16 SpO2 94% ? Unknown General: [...] the original. CONSULT NOTE [facility]: 10291112 MR #: [id number] : 1990 Physicians: Freddie Tinoco PA-C (Family); [...] was consulted by Dr. Santana of the [facility] service to evaluate the above issue. History: [...] Position: Lying) Pulse (!) 121 Temp 99.7 F (37.6 C ) Resp 16 SpO2 94% ? Unknown General: [...] Units 09/04/18 0544 09/03/18 1854 09/03/18 1016 WBC K/mcL 5.51 -- 12.76* HGB [...] RN - 09/08/2018 4:10 PM [facility] - Earl Cruz, TARA - 09/06/2018 6:22 AM EDTPlan of [facility] - Becky Vuong RN - 09/06/2018 3:21 [...] will sign off F/u on at our [facility] office to discuss UTI prevention for 10/02/18 at 1:45pm. Arrive at 1:15pm. Details on AVS Patient had scored MEWS of 5. Have notified Rapid Response Nurse. [facility] stone driller is aware of the MEWS score. Patient is here for Sepsis. [facility] has placed an order for PRN Tylenol. Tylenol have been given. Will monitor patient and take vital again in one hour. [facility] NOTE Called by pt's nurse [...] and a temperature of greater than 102. [facility] physician and Rapid response nurse notified. See orders for physician recommendations. Will continue to monitor. Formatting of this note may be different from the original. ED PROVIDER NOTE [facility] EMERGENCY DEPARTMENT NAME: Dayna Tinsley AGE: 27 y.o. : 1990 VISIT DATE: 09/03/2018 CSN: [id number] PCP: Freddie Tinoco PA-C Chief complaint: Right [...] - 09/03/18 0948 (!) 131/93 (!) 100.8 F (38.2 C ) Oral (!) 125 (!) 24 96 % [...] Yellow Clarity, Urine Cloudy (A) Clear Specific Yarnell 1.015 1.005 - 1.025 pH, Urine 5.0 [...] right hemicolon, suggesting diarrhea. Workstation ID: [id number] [facility] Medical decision-making: CT demonstrates pyelonephritis. She does [...] w/Cardiac Monitoring [19] Admitting Physician: CHASE SANTANA [[id number]] Diagnosis: Acute pyelonephritis [[id number]] Attending Provider or Group: [facility] [[id number]] Expected Length of Stay in Days: 3 Reason for inpatient over two midnights: IV antibiotics Follow-up Information Follow-up information has not been specified. Contact information for after-discharge care Follow-up information has not been specified. New Prescriptions No medications on file Juan Pastor MD 09/03/18 2054 Pt is aaox3, respirations are equal and [...] advises she is sending this patient to [facility] ED. Patient with hx of Chrohn's who [...] Member Role: ED Physician Address: Address: [address] [place] [address]- Care Teams (unrecognized sec tion and content) [...] ctive Team Status: Inactive Member Role Status [place] [...] Physician Family Provider Active Fahad Champagne VSC, DISINTEGRATOR-C Primary Care Provider Active Team Status: Inactive Member Role Status Dates Dr. Jose Wynn DO Emergency Provider Active Fahad Mahi VSC, DISINTEGRATOR-C Primary Care Provider Active Team Status: Inactive Member Role Status Dates Dr. Jose Wynn DO Attending Provider, Emergency Pro vider Active Fahad Champagne VSC, DISINTEGRATOR-C Primary Care Provider Active Team Status: Inactive Member Role Status Dates Fahad Mahi VSC, DISINTEGRATOR-C Primary Care Provider Active Ed Physician Provider Emergency Provider Active Team Status: Inactive Member Role Status Dates Fahad Champagne VSC, DISINTEGRATOR-C Primary Care 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 Jose Wynn , Emergency Provider Active Team Status: Inactive Member Role Status Dates Fahad Blackwellder VSC, DISINTEGRATOR-C Primary Care 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 Jose Wynn DO Attending Provider, Emergency Pro vider Active Team Status: Inactive Member Role Status Dates Fahad Champagne VSC, DISINTEGRATOR-C Primary Care Provider Active Ed Physician Provider Attending Provider, Emergency Pr ovider Active Team Status: Inactive Member Role Status Dates Fahad Champagne VSC, DISINTEGRATOR-C Primary Care Provider Active Nito Nur MD Emergency Provider Active Team Status: Inactive Member Role Status Dates Fahad Champagne VSC, DISINTEGRATOR-C Primary Care Provider Active Nito Nur MD Attending Provider, Emergency Provid er Active Team Status: Inactive Member Role Status Dates Fahad Champagne VSC, DISINTEGRATOR-C Primary Care 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 Jagjit Ortega MD Attending Provider, Referring Jacinto loco Active Tool And Die Repairer Relationship Specialty Start Date End Date Generic Provider, [place] [address] PCP - General Director Trust 01/20/25 Tool And Die Repairer Relationship Specialty Start Date End Date Generic Provider, [place] [address] PCP - General Director Trust 01/20/25 Tool And Die Repairer Relationship Specialty Start Date End Date Generic Provider, [place] [address] PCP - General Director Trust 01/20/25 Tool And Die Repairer Relationship Specialty Start Date End Date Generic Provider, [place] [address] PCP - General Director Trust 01/20/25 [place] [address] [place] [address] Supply Chain Business Analyst Maternal and Medicine 02/15/25 Tool And Die Repairer Relationship Specialty Start Date End Date Generic Provider, [place] [address] PCP - General Director Trust 01/20/25 [place] [address] [place] [address] Supply Chain Business Analyst Maternal and Medicine 02/15/25 Tool And Die Repairer Relationship Specialty Start Date End Date Generic Provider, No [place] [address] PCP - General Director Trust 01/20/25 [place] [address] [place] [address] Supply Chain Business Analyst Maternal and Medicine 02/15/25 Tool And Die Repairer Relationship Specialty Start Date End Date Generic Provider, No [place] [address] PCP - General Director Trust 01/20/25 [place] [address] [place] [address] Supply Chain Business Analyst Maternal and Medicine 02/15/25 Tool And Die Repairer Relationship Specialty Start Date End Date Zoë Santana MD [address] [place] [id number] PCP - General Internal Medicine 03/16/25 [place] [address] [place] [address] Supply Chain Business Analyst Maternal and Medicine 02/15/25 Tool And Die Repairer Relationship Specialty Start Date End Date Zoë Santana MD [address] [place] [address] PCP - General Internal Medicine 03/16/25 [place] [address] [place] [address] Supply Chain Business Analyst Maternal and Medicine 02/15/25 Scheduled Active and Recently Administ ered Medications (unrecognized section and content) Medication Order 12/23/2024 12/24/2024 12/25/2024 aspirin EC tablet 81 mg 81 mg, oral, Daily, First dose on Sun12/23/24 at 1915, Do not crush, chew, or split. 191 (Canceled Entry - Provider: Gregory Harrell, DOUG) 0853 (Given - Provider: Chanel Allen RN) 0831 (Given - Provider: Lexis Quintana, DOUG) diphenhydrAMINE (BENADryl) injection 25 mg (COMPLETED) 25 [...] times) 0952 (Given - Provider: Lexis Quintana, DOUG)1226 (Given - Provider: Lexis Quintana RN)1600 (Due) [...] Deluna, DOUG) 0853 (Given - Provider: Chanel Allen, DOUG) insulin NPH (Isophane) (HumuLIN N,NovoLIN N) [...] at 1915, provides 0.8 mg folic acid 191 (Canceled Entry - Provider: Gregory Harrell, DOUG) 0853 (Not Given - Provider: Chanel Allen RN - Reason: Patient/family refused) 0834 (Not Given - Provider: Lexis Quintana RN - Reason: Patient/family refused) promethazine (Phenergan) tablet 25 mg (COMPLETED) 25 mg, oral, Once, On Sun12/24/24 at 1330, For 1 dose 1317 (Given - Provider: Elyssa Pastor, DOUG) PRN Medication Order 12/23/2024 12/24/2024 12/25/2024 acetaminophen (Tylenol) tablet 975 mg 975 mg, oral, Every 6 hours PRN, pain mild (1-3), first line, headaches, fever (temp greater than 38.0 C), Starting on Sun12/24/24 at 1236, If ordered PRN for pain, nurse is permitted to administer this medication for higher pain scores based on patient preference? Yes 9787 (Given - Provider: Elyssa Pastor, DOUG)1910 (Given - Provider: Chanel Allen RN) caffeine [...] to 40 mg/dL, Starting on Sun12/23/24 at 181, May repeat until blood glucose level reaches 100 mg/dL or greater. Push 2 - 3 mL/minute if patient has secure IV access. diphenhydrAMINE (BENADryl) injection 25 mg 25 mg, intravenous, Every 6 hours PRN, sleep, Starting on Sun12/24/24 at 1903, If giving IV push, max rate of 25 mg/min. 230 (Given - Provider: Zev Babcock RN) famotidine [...] hours PRN, nausea/vomiting, first line, Starting on e 12/23/24 at 1741 polyethylene glycol (Glycolax, Miralax) [...] hours PRN, nausea/vomiting, first line, Starting on e 12/23/24 at 1741, Give IV if patient [...] at 1900, For 1 dose 1942 ([facility] - Prov ider: Levar Nava RN) PRN Medication Order 01/06/2025 01/07/2025 01/08/2025 ondansetron (Zofran) injection 4 mg(Linked Group 2) 4 mg, intravenous, Every 6 hours PRN, nausea/vomiting, first line, Starting on Sis 3 at 1605, Give IV if patient is unable to take orally. When administering via IV Push, administer over 3-5 minutes. ondansetron (Zofran) tablet 4 mg(Linked Group 2) 4 mg, oral, Every 6 hours PRN, nausea/vomiting, first line, Starting on Sis 3 at 1605 Linked Groups Order Group 1: diphenhydrAMINE (BENADryl) injection 25 mg (COMPLETED)Jump to med 25 mg, intravenous, Administer over 2 Minutes, Once, On Sis 01/08/25 at 1630, For 1 dose, Give IV if patient unable to take orally. Or diphenhydrAMINE (BENADryl) capsule 25 mg (COMPLETED) 25 mg, oral, Once, On Sis 3 at 1630, For 1 dose, Use oral route first, if possible. Group 2: ondansetron (Zofran) tablet 4 mgJump to med 4 mg, oral, Every 6 hours PRN, nausea/vomiting, first line, Starting on Sis 325 at 1605 Or ondansetron (Zofran) injection 4 mgJump to med 4 mg, intravenous, Every 6 hours PRN, nausea/vomiting, first line, Starting on Ssi 3 at 1605, Give IV if patient is [...] Lexii Liz RN)2337 (Given - Provider: Lily Babcock, DOUG) 0636 (Given - Provider: Lily Babcock, DOUG)1249 (Given - Provider: Myriam Damian RN)2054 (Given - Provider: Lexii Diane RN) 0512 [...] Automatic Transfer Provider - Reason: Unreviewed Transfer Orders)1856 (JAN Unhold - Provider: Suzette Galindo MD) 0801 (Medication Applied - Provider: Myriam Damian RN - Comment: BACK)2000 (Due: Medication Removed - Provider: Myriam Damian RN) 102 (Medication Applied - Provider: Myriam Damian RN [...] signs and symptoms of magnesium toxicity including: CLINIC ADMINISTRATOR depression, diminished DTRs, increasing muscle weakness, respirations [...] RN - Reason: Other - Comment: patient asleep)215 (See Alternative - Provider: Lexii Diane RN) [...] Nightly PRN, constipation, third line, Starting on Sis 02/12/25 at 1444 simethicone (Mylicon) chewable tablet 80 mg 80 mg, oral, 4 times daily PRN, flatulence, Starting on Sun02/13/25 at 0453 tranexamic acid (Cyklokapron) injection 1,000 mg 1,000 mg, intravenous, Once as needed, bleeding in all patients, Starting on Sun02/13/25 at 0517, For 1 dose, Consult provider prior to administration, Tranexamic Acid Indication: Hemorrhage: GUIDANCE CONSULTANT witch carlo (Tucks) pads 1 each 1 [...] mg (COMPLETED) 975 mg, oral, Once, On 02/16/25 at [...] on Sun03/01/25 at 1648, For 1 dose NIFEdipine (Procardia) [...] BE BASED ON THE PRIMARY CLINICAL RECORDS. [facility]. provides no warranty or guarantee of the accuracy or completeness of information in this document.
[2025-10-16 20:40] LABS: Color, Urine Yellow (Yellow); Glucose, Dipstick Normal (Normal); Ketone-Dipstick Negative (Negative); Leukocyte Esterase-Dipstick 500 /ul (Negative); Nitrite-Dipstick Negative (Negative); Occult Blood-Urine Negative /ul (Negative); Protein-Dipstick 30 mg/dl (Negative); Specific Gravity, Urine 1.020 (1.002-1.030); Urine Bilirubin Dipstick Negative (Negative)
[2025-10-16 21:50] LABS: Hematocrit 35.3 % (37-47); Hemoglobin 11.0 g/dL (12.0-15.0); Immature Granulocytes Count 0.050 X10^3/uL (0.0-0.0); Mean Corp Hgb Conc 31.2 g/dL (32-36); Mean Corpuscular Volume 79.7 fL (81-99); Mean Platelet Vol. 10.0 fl (6.2-12.0); NRBC Flagged by Analyzer 0 % (0-5); Platelet Count 274 K/mm3 (150-450); RBC Distribution Width CV 14.1 % (11.6-14.6); RBC Distribution Width SD 40.7 fl (35.1-43.9); Red Blood Count 4.43 M/mm3 (4.2-5.4); White Blood Count 11.2 K/mm3 (4.4-11.0)
[2025-10-16 22:05] LABS: Red Blood Cells-Urine 0-5 SEEN /hpf (0-5); Squamous Epithelial Cells - UA 0-5 SEEN /hpf (5-10)
== END 2025-10-16 23:03 | disposition home or self-care (01) ==
LOC: ED 20:31
PROVIDERS: Emergency Provider Emergency Medicine; PCP Internal Medicine; Visit Provider Emergency Medicine
DX: N39.0 Urinary tract infection, site not specified (principal); E11.65 Type 2 diabetes mellitus with hyperglycemia; Z79.4 Long term (current) use of insulin; F17.210 Nicotine dependence, cigarettes, uncomplicated
CPT/HCPCS: 74177; 80053; 81001; 83690; 84703; 85025; 96361; 96374; 96375; 96376; 99283; Q9967; A4216; J2405

== ENCOUNTER 2025-10-21 18:20 | Emergency (ER) | payer BC, MEDICAID, SELFPAY ==
[2025-10-21 18:22] VITALS: BP 132/99; PULSE 109; RESP 18; TEMP 36.7; O2SAT 99; BMI 53.9
[2025-10-21 18:55] VITALS: O2SAT 100
[2025-10-21 18:56] VITALS: BP 153/83; PULSE 101; RESP 18; O2SAT 100
[2025-10-21 19:00] VITALS: BP 146/85
[2025-10-21] MEDS: 0.9% Normal Saline (1000mL) 1,000 ML 1000 ML IV (19:28)
[2025-10-21] MEDS: DiphenhydrAMINE 50 MG/ML Syringe IV (19:29)
[2025-10-21 19:43] LABS: Hematocrit 39.9 % (37-47); Hemoglobin 12.6 g/dL (12.0-15.0); Immature Granulocytes Count 0.090 X10^3/uL (0.0-0.0); Mean Corp Hgb Conc 31.6 g/dL (32-36); Mean Corpuscular Volume 79.2 fL (81-99); Mean Platelet Vol. 9.8 fl (6.2-12.0); NRBC Flagged by Analyzer 0 % (0-5); Platelet Count 349 K/mm3 (150-450); RBC Distribution Width CV 14.5 % (11.6-14.6); RBC Distribution Width SD 41.3 fl (35.1-43.9); Red Blood Count 5.04 M/mm3 (4.2-5.4); White Blood Count 12.7 K/mm3 (4.4-11.0)
[2025-10-21 19:51] LABS: Anion Gap 11 (5-15); BUN 8 mg/dL (4-19); BUN/Creat Ratio 8.7 RATIO (10-20); Calcium,Total 9.2 mg/dL (7.6-11.0); Carbon Dioxide 25.3 mmol/L (21.0-32.0); Chloride 102 mmol/L (98-108); Estimated Creatinine Clearance 119.63 ml/min (50-250); Glucose 132 mg/dL (70-99); Potassium 3.8 mmol/L (3.3-5.1)
[2025-10-21 20:15] VITALS: BP 125/69; PULSE 89; O2SAT 100
--- NOTE | 2025-10-21 20:34 | EX.ED.DYSGE1 ---
HPI History of Present Illness Chief Complaint: Nausea/Vomiting Detail of Chief Complaint: Bilateral lower quadrant Juan pain with nausea vomiting and black diarrh Onset/Context/Timing Onset: Days Context: Sudden Onset Timing: Intermittent Quality: Pain, colicky Location: Bilateral lower quadrants Current Severity: Mild Maximum Severity: Severe Worsened by: Nothing Relieved by: Nothing Associated Symptoms Associated Symptoms: Nausea vomiting diarrhea. Stool is black per patient Narrative Narrative: Patient is a 33-year-old woman. She has lost significant mount of weight and GLP?1 agent. She is presently on Ozempic. She discontinued the Ozempic 2 weeks ago because of nausea and vomiting and abdominal pain. She has since developed diarrhea. She denies fever or chills. She does endorse thirst and dry mouth. She denies headache, visual, ocular auditory symptoms. She denies cardiac or respiratory symptoms. Her abdominal pain is lower quadrant and bilateral. She denies dysuria, frequency, urgency or hematuria. She denies vaginal bleeding or vaginal discharge. She denies history of endometriosis or ovarian cysts. Patient states she lost 140 pounds. She gained significant mount back after . She been able to lose her weight and reason she was darted on Ozempic. Prior similar symptoms: Yes Recent Illness/Hospitalization: Yes (Seen October 16. She had a significant workup including CAT scan that was) [facility] Medical History Anxiety Depression Type 2 diabetes mellitus Hx of mastitis Congenital heart defect Endometriosis Crohn's disease Home Medications ?Medication ?Instructions ?Recorded ?Last Taken ?Type acetaminophen 500 mg capsule 500 mg PO Q6H PRN pain 04/12/24 04/12/24 History loperamide 2 mg capsule 2 mg PO PRN 04/12/24 Unknown History flash glucose scanning reader #1 ea 12/19/24 Unknown Rx (FreeStyle Javon 2 [place]) flash glucose sensor (FreeStyle #1 ea 12/19/24 Unknown Rx Javon 2 Sensor kit) blood sugar diagnostic (True #100 ea 12/22/24 Unknown Rx Metrix Glucose Test Strip) blood sugar diagnostic (True #100 ea 12/22/24 Unknown Rx Metrix Glucose Test Strip) lancets #200 ea 12/22/24 Unknown Rx lancets 30 gauge (Droplet Lancets) #200 ea 12/22/24 Unknown Rx hydroxyzine HCl 50 mg tablet 50 mg PO BID PRN anxiety #180 tabs 04/30/25 Unknown Rx promethazine 25 mg tablet 25 mg PO TID PRN nausea and 05/20/25 Unknown Rx vomiting #21 tabs famotidine 20 mg tablet 20 mg PO BID #28 TABLETS 06/04/25 Unknown Rx hyoscyamine sulfate 0.125 mg 0.125 mg PO Q8H PRN dyspepsia #20 06/04/25 Unknown Rx tablet (Levsin) tabs insulin glargine 100 unit/mL (3 40 unit subcut BID 06/04/25 Unknown History mL) subcutaneous pen (Lantus Solostar U-100 Insulin) insulin glargine-yfgn 100 unit/mL 40 unit subcut BID 06/04/25 Unknown History (3 mL) subcutaneous pen insulin lispro 100 unit/mL 15 unit subcut TID 06/04/25 Unknown History subcutaneous pen lisinopril 2.5 mg tablet 2.5 mg PO DAILY 06/04/25 Unknown History spironolactone 50 mg tablet 50 mg PO DAILY 06/04/25 Unknown History trazodone 50 mg tablet 50 mg PO QHS 06/04/25 Unknown History semaglutide 0.25 mg or 0.5 mg (2 1 mg subcut QWEEK 07/03/25 Unknown History mg/3 mL) subcutaneous pen injector (Ozempic) doxepin 150 mg capsule 150 mg PO DAILY #90 caps 09/10/25 Unknown Rx prazosin 2 mg capsule 2 mg PO QHS #30 caps 09/10/25 Unknown Rx diazepam 5 mg tablet 5 mg PO TID PRN ptsd #30 tabs 10/09/25 Unknown Rx lamotrigine 25 mg tablet 25 mg PO DAILY #46 tabs 10/09/25 Unknown Rx modafinil 100 mg tablet 100 mg PO QAM #30 tabs 10/09/25 Unknown Rx modafinil 200 mg tablet 200 mg PO DAILY #30 tabs 10/09/25 Unknown Rx cephalexin 500 mg capsule 500 mg PO Q6 #12 CAPSULES 10/16/25 Unknown Rx hydrocodone-acetaminophen 5-325mg 1 tab PO Q6H PRN PRN Pain 3 days 10/16/25 Unknown Rx 5mg-325mg #10 TABLETS dicyclomine 20 mg tablet 20 mg PO .4 times daily #20 tabs 10/21/25 Unknown Rx promethazine 25 mg tablet 25 mg PO Q6H PRN nausea and 10/21/25 Unknown Rx vomiting #10 tabs Allergy/AdvReac Type Severity Reaction Status Date / Time methylprednisolone (From Allergy Severe Anaphylaxis Verified 10/21/25 18:23 Solu-Medrol) midazolam (From Versed) Allergy Unknown Other Verified 10/21/25 18:23 benzocaine (From Cetacaine) Allergy Anaphylaxis Verified 10/21/25 18:23 butamben (From Cetacaine) Allergy Anaphylaxis Verified 10/21/25 18:23 methylprednisolone sodium Allergy Anaphylaxis Verified 10/21/25 18:23 succinate (From Solu-Medrol) metoclopramide (From Reglan) Allergy Other Verified 10/21/25 18:23 sertraline Allergy Other Verified 10/21/25 18:23 tetracaine (From Cetacaine) Allergy Anaphylaxis Verified 10/21/25 18:23 midazolam HCl (From Versed) AdvReac Other Verified 10/21/25 18:23 Family History Grandmother Breast cancer, Onset Age: 37 Paternal Aunt Breast cancer, Onset Age: 36 Paternal Aunt Breast cancer Maternal Grandmother Breast cancer, Onset Age: 80 Maternal Surgical History Hx of myringotomy History of colon resection H/O dilation and curettage H/O resection of small bowel History of cholecystectomy Hx LEEP (loop electrosurgical excision procedure), cervix, Social History adopted: No 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al status: employed 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al exposures/hazards: Yes pets and animals: Yes pets and animals: dog(s) history of recent travel: Yes ([place], [place]) out of state: Yes out of country: No sexually active: Yes Smoking Status: Current every day smoker tobacco type: cigarettes quit status: considering quitting alcohol intake: never substance use type: does not use diet: other well-balanced diet: about half the time caffeine: Yes Type: carbonated beverages Number of servings: 2 eating out: 4 or more times/week during the past year weight has: decreased > 10 lbs what type of physical activity do you participate in: weight training frequency: 1-2 times per week duration: < 15 minutes/day keiko/jainism: Scientology seatbelt use: always do you feel safe at home: Yes additional social history: FOB is Donor ROS ROS ED Constitutional Constitutional ED: Denies chills, fever(s), subjective, sweats or weight loss Eyes Eyes: Denies blurry vision, change in vision or diplopia ENT ENT ED: Denies ear pain, rhinorrhea or sore throat Cardiovascular Cardiovascular: Denies chest pain, palpitations or racing heartbeat Respiratory/Chest Respiratory/Chest: Denies cough, dyspnea or dyspnea on exertion Gastrointestinal Gastrointestinal: Reports abdominal pain, diarrhea, melena, nausea and vomiting; Denies constipation Genitourinary Genitourinary ED: Denies dysuria, hematuria or urinary frequency Musculoskeletal Musculoskeletal: Denies arthralgias, back pain or myalgias Integumentary Denies rash Neurologic Neurologic: Denies paresthesias or weakness Endocrine Endocrinology: Denies cold intolerance or heat intolerance Hematologic/Lymphatic Hematologic/Lymphatic: Reports systems reviewed and no addt'l complaints, except as documented EXAM Physical Exam Const Vital Signs: 10/21/25 18:22 10/21/25 18:55 10/21/25 18:56 Temperature 98.1 F Temperature Source Temporal Pulse Rate 109 H 101 H Respiratory Rate 18 18 Blood Pressure 132/99 H 153/83 H Blood Pressure Mean 110 106 Pulse Ox 99 100 100 Oxygen Delivery Method Room Air 10/21/25 19:00 10/21/25 20:15 Temperature Temperature Source Pulse Rate 89 Respiratory Rate Blood Pressure 146/85 H 125/69 H Blood Pressure Mean 97 87 Pulse Ox 100 Oxygen Delivery Method Room Air Positive well nourished and well developed Constitutional Narrative: Patient appears slightly uncomfortable and ill-appearing. BMI is 53.9. General Appearance ED: well developed; Negative for pallor HEENT Reports dry mucous membranes HEENT Narrative: Head is atraumatic and normocephalic. Ears normal. Nares patent. Posterior pharynx is normal. Mouth ED: Yes dry mucous membranes Mouth: dry mucous membranes Eyes PERRL and EOMs intact bilaterally Neck no lymphadenopathy, supple and no JVD Chest Wall inspection of chest normal and palpation of chest normal Resp normal respiratory effort and clear to auscultation bilaterally Cardio regular rate, regular rhythm, S1 normal heart sound, S2 normal heart sound and no murmurs GI normal to inspection, nondistended, normoactive bowel sounds, non-distended and no masses; Negative for non-tender or hepatosplenomegaly GI Narrative: Exam is limited due to body habitus Palpation: tender LLQ and RLQ; Negative for guarding, splenomegaly, mass or rebound tenderness present Back/Spine no CVA tenderness Extremity normal to inspection Neuro oriented x3 and CN's II-XII intact bilaterally Sensorium / Orientation: alert Psych mental status grossly normal Skin no rashes or lesions noted, no wounds and skin turgor normal General Skin Exam: elasticity normal; Negative for jaundice or pallor MDM MDM MDM Narrative Medical decision making narrative: Since patient reports black stool rectal exam was performed. Patient has a light larson soft stool in the rectal vault. She does have evidence of hemorrhoids. There is no active bleeding. Suspect this is due to her Ozempic. Will obtain blood work and compared to blood work obtained on the . In my opinion she does not have a surgical abdomen and repeat imaging is not indicated. Records from the were reviewed. History & Record Review Additional record(s) reviewed:: Prior ED visit and Prior labs Lab Data Attestation: I reviewed the patient's lab results. Lab results narrative: White count elevated 12.7. Was elevated on the . There is no shift. Patient has microcytic indices. Basic metabolic panels are marked for glucose of 132 with a normal CO2 anion gap. Labs: Laboratory Results - last 24 hr 10/21/25 19:25 WBC 12.7 H RBC 5.04 Hgb 12.6 Hct 39.9 MCV 79.2 L MCH 25.0 L MCHC 31.6 L RDW Std Deviation 41.3 RDW Coeff of Silke 14.5 Plt Count 349 MPV 9.8 Immature Gran % (Auto) 0.700 Neut % (Auto) 68.2 Lymph % (Auto) 25.8 [place] % (Auto) 4.5 Eos % (Auto) 0.3 Baso % (Auto) 0.5 Absolute Neuts (auto) 8.7 H Absolute Lymphs (auto) 3.29 Nucleated RBC % 0 Sodium 138 Potassium 3.8 Chloride 102 Carbon Dioxide 25.3 Anion Gap 11 BUN 8 Creatinine 0.94 Estim Creat Clear Calc 119.63 Est GFR (MDRD) Non-Af 81 BUN/Creatinine Ratio 8.7 L Glucose 132 H Calcium 9.2 Treatment and Re-Evaluation :: Patient received Compazine, Benadryl for her nausea and vomiting and Bentyl for cramping pain. When she was reassessed at 2028 she was markedly better. She was discharged to home with prescription for Phenergan and dicyclomine. Discharge Plan Triage Chief Complaint: Nausea/Vomiting Other Complaint: GI Bleed ED Provider: Santi Shaver Dx/Rx/DC Orders Clinical Impression: Nausea, vomiting and diarrhea, Abdominal pain, acute, bilateral lower quadrant, Dehydration, mild, Hx of Crohn's disease, History of gestational diabetes mellitus (GDM) in prior , currently , PTSD (post-traumatic stress disorder), Current smoker, External hemorrhoid, Adverse effect of drug in therapeutic use Instructions: ED Diet Vomiting Diarrhea Prescriptions: New promethazine 25 mg tablet 25 mg PO Q6H PRN (Reason: nausea and vomiting) Qty: 10 0RF dicyclomine 20 mg tablet 20 mg PO .4 times daily Qty: 20 0RF No Action hydroxyzine HCl 50 mg tablet 50 mg PO BID PRN (Reason: anxiety) Qty: 180 1RF doxepin 150 mg capsule 150 mg PO DAILY Qty: 90 1RF prazosin 2 mg capsule 2 mg PO QHS Qty: 30 1RF lamotrigine 25 mg tablet 25 mg PO DAILY Qty: 46 0RF Rx Instructions: Take 1 tablet daily for 14 days then take 2 tablets daily thereafter diazepam 5 mg tablet 5 mg PO TID PRN Qty: 30 0RF modafinil 100 mg tablet 100 mg PO QAM Qty: 30 0RF Rx Instructions: Take in addition to 200mg tablet for a total of 300mg daily modafinil 200 mg tablet 200 mg PO DAILY Qty: 30 0RF Rx Instructions: Take in addition to 100mg tablet for a total of 300mg daily loperamide 2 mg capsule 2 mg PO PRN Rx Instructions: MAX 8/DAILY acetaminophen 500 mg capsule 500 mg PO Q6H PRN (Reason: pain) lisinopril 2.5 mg tablet 2.5 mg PO DAILY insulin lispro 100 unit/mL insulin pen 15 unit subcut TID insulin glargine [Lantus Solostar U-100 Insulin] 100 unit/mL (3 mL) insulin pen 40 unit subcut BID insulin glargine-yfgn 100 unit/mL (3 mL) insulin pen 40 unit subcut BID trazodone 50 mg tablet 50 mg PO QHS spironolactone 50 mg tablet 50 mg PO DAILY hyoscyamine sulfate [Levsin] 0.125 mg tablet 0.125 mg PO Q8H PRN (Reason: dyspepsia) Qty: 20 0RF famotidine 20 mg tablet 20 mg PO BID Qty: 28 0RF Ozempic 0.25 mg or 0.5 mg (2 mg/3 mL) pen injector 1 mg subcut QWEEK promethazine 25 mg tablet 25 mg PO TID PRN (Reason: nausea and vomiting) Qty: 21 0RF hydrocodone-acetaminophen 5-325 mg tablet 1 tab PO Q6H PRN PRN (Reason: Pain) 3 Days Qty: 10 0RF cephalexin 500 mg capsule 500 mg PO Q6 Qty: 12 0RF (DME) FreeStyle Javon 2 [place] Misc See Rx Instructions .Route Qty: 1 0RF Rx Instructions: As directed (DME) FreeStyle Javon 2 Sensor Kit See Rx Instructions .Route Qty: 1 8RF Rx Instructions: As directed (DME) lancets Misc See Rx Instructions .ROUTE .MEDSUPPLY Qty: 200 2RF Rx Instructions: As directed, fasting and 2 hours post meals (DME) True Metrix Glucose Test Strip Strip See Rx Instructions .Route Qty: 100 2RF Rx Instructions: As directed, fasting and 2hr post meals .4x daily (DME) True Metrix Glucose Test Strip Strip See Rx Instructions .Route Qty: 100 6RF Rx Instructions: Test fasting and 2 hours after breakfast, lunch, dinner (DME) lancets [Droplet Lancets] 30 gauge misc See Rx Instructions .ROUTE .MEDSUPPLY Qty: 200 6RF Rx Instructions: Check blood sugars fasting and 2 hours after breakfast, lunch, and supper. Primary Care Provider: Lara Santana Referrals: Lara Santana MD [Primary Care Provider, Medical] Print Language: Slovenian
[2025-10-21 20:57] VITALS: BP 130/72; PULSE 92; RESP 18; TEMP 36.8; O2SAT 99
== END 2025-10-21 21:00 | disposition home or self-care (01) ==
PROVIDERS: Emergency Provider Emergency Medicine; PCP Internal Medicine; Visit Provider Emergency Medicine
DX: R11.2 Nausea with vomiting, unspecified (principal); K50.90 Crohn's disease, unspecified, without complications; E11.9 Type 2 diabetes mellitus without complications; Z79.4 Long term (current) use of insulin; R19.7 Diarrhea, unspecified; R10.31 Right lower quadrant pain; R10.32 Left lower quadrant pain; K64.4 Residual hemorrhoidal skin tags; E86.0 Dehydration; T38.3X5A Adverse effect of insulin and oral hypoglycemic [antidiabetic] drugs, initial encounter; F43.10 Post-traumatic stress disorder, unspecified; F17.210 Nicotine dependence, cigarettes, uncomplicated; Z79.85 Long-term (current) use of injectable non-insulin antidiabetic drugs; Z79.899 Other long term (current) drug therapy
CPT/HCPCS: 80048; 85025; 96361; 96374; 99283; A4216